=== PATIENT | female | born 1955 | race Caucasian/White ===

== ENCOUNTER 2016-11-14 17:05 | Inpatient (IN) ==
[2016-11-14] MEDS ORDERED: 0.9 % Sodium Chloride 500 ML IVC ONE (17:18)
[2016-11-14] MEDS ORDERED: Insulin Human Regular 10 UNIT in 0.9 % Sodium Chloride 10 ML IV ONE (17:18)
--- NOTE | 2016-11-14 17:21 | Emergency Department Note ---
Disposition Clinical Impression: Altered mental status Qualifiers: Altered mental status type: unspecified Qualified Code(s): R41.82 - Altered mental status, unspecified Disposition: Still a Patient Referrals: Tristen Quintana MD [Primary Care Provider] - Forms: ED Satisfaction Letter Altered Mental Status HPI - General Chief Complaint: ED Altered Mental Status Stated Complaint: AMS Time Seen by Provider: 11/14/16 17:12 Source: EMS Mode of arrival: EMS Limitations: no limitations Nursing Notes Reviewed: Yes Vital Signs Reviewed: Yes - History of Present Illness HPI Narrative: A 61-year-old comes in with a history of diabetes. States the last couple of days she's had some nausea vomiting and diarrhea not able to keep anything down. Patient stopped taking her insulin because her home health personnel are not able to give it to her and she has a broken wrist is not able to give it to herself. States she hasn't had insulin in a couple of days. Squad's Accu-Chek read greater than 600, point of care here in the ER was greater than 600. complaint: confusion Onset (ago): day(s) Timing confirmed by: caregiver Pain Severity: mild, moderate Context: diabetes Associated symptoms: Reports: nausea/vomiting, difficulty walking, diarrhea - Related Data Home Medications Medication Instructions Recorded Confirmed Amitriptyline [Elavil] 100 mg PO HS 05/11/15 10/29/16 Clopidogrel [Plavix] 75 mg PO DAILY 05/11/15 10/29/16 Ergocalciferol (VITAMIN D2) 50,000 units PO TH #0 05/11/15 10/29/16 [Vitamin D2 (50,000 UNIT)] Omeprazole [PriLOSEC] 20 mg PO BID 05/11/15 10/29/16 Rosuvastatin [Crestor] 40 mg PO HS 05/11/15 10/29/16 Sevelamer [Renvela] 800 mg PO TIDWM 05/11/15 10/29/16 Albuterol Neb [AccuNeb] 3 ml IH Q6H PRN 06/12/15 10/29/16 Aripiprazole [Abilify] 10 mg PO HS 06/12/15 10/29/16 Colestipol HCl [Colestid] 1 gm PO BID 06/12/15 10/29/16 Sennosides [Senna] 8.6 mg PO BID 06/12/15 10/29/16 Carvedilol 12.5 mg PO BID 10/28/15 10/29/16 HydrALAZINE 50 mg PO BID 12/30/15 10/29/16 Oxycodone HCl/Acetaminophen 1 tab PO Q6H PRN 04/14/16 10/29/16 [Percocet 10-325 mg Tablet] Amlodipine [Norvasc] 5 mg PO DAILY 06/09/16 10/29/16 Insulin Glargine,Hum.rec.anlog 60 unit SQ BID 06/09/16 10/29/16 [Lantus Solostar] Calcium Acetate [Phos-LO] 667 mg PO TIDWM 09/06/16 10/29/16 Furosemide [Lasix] 80 mg PO BID 09/06/16 10/29/16 Insulin LISPRO [Humalog] 20 unit SQ TIDWM 09/06/16 10/29/16 Metolazone [Zaroxolyn] 2.5 mg PO DAILY 09/06/16 10/29/16 Oxycodone HCl [Oxycontin] 60 mg PO Q12H 09/06/16 10/29/16 Oxygen 1 l .ROUTE HS PRN 09/06/16 10/29/16 Previous Rx's Medication Instructions Recorded Budesonide/Formoterol 160/4.5 2 puff IH BIDR inhaler 06/18/16 [Symbicort 160/4.5] Gabapentin [Neurontin] 200 mg PO TID 30 Days 06/18/16 Allergies Allergy/AdvReac Type Severity Reaction Status Date / Time No Known Allergies Allergy Verified 10/29/16 08:38 Constitutional: Denies: fever, chills, weakness, weight change Eyes: Denies: eye pain, eye discharge, vision change ENT ED: Denies: ear pain, throat pain, dental pain, hearing loss, epistaxis, congestion, dysphagia Cardiovascular: Denies: chest pain, palpitations, dyspnea on exertion, edema, syncope Respiratory: Denies: cough, dyspnea, wheezes, hemoptysis, stridor Gastrointestinal: Reports: nausea, vomiting, diarrhea. Denies: abdominal pain, constipation, hematemesis, melena, hematochezia Genitourinary: Denies: dysuria, frequency, hematuria, discharge Musculoskeletal: Denies: back pain, neck pain, arthralgia, myalgia Integumentary: Denies: rash, abrasion, lesions Neurological: Denies: headache, weakness, numbness, paresthesias, confusion, abnormal gait, vertigo Psychiatric: Denies: anxiety, depression, suicidal thoughts, homicidal thoughts , auditory hallucinations, visual hallucinations Endocrine: Denies: fatigue Hematological/Lymphatic: Denies: easy bleeding, easy bruising Allergic/Immunologic: Denies: facial swelling, urticaria Past Medical History - Past Medical History Medical history: Reports: arthritis, atrial fibrillation, CHF, COPD, coronary artery disease, CVA, DVT, diabetes, dialysis, fibromyalgia, GERD, hyperlipidemia , hypertension, kidney stones, migraine, myocardial infarction, osteoporosis, peripheral artery disease, renal disease, other Surgical history: Reports: angioplasty/stent, appendectomy, cholecystectomy, coronary bypass (CABG), hysterectomy, knee replacement, other Psychiatric history: Reports: anxiety 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 - Social History Smoking Status: Current every day smoker Smokeless Tobacco Status: No Alcohol use: Reports: none Drug use: Reports: none Physical Exam - General Limitations: no limitations General appearance: alert - Head Head exam: atraumatic, normocephalic, normal inspection - Eye Eye exam: Present: normal appearance, PERRL, EOMI - ENT ENT exam: normal exam, normal oropharynx, mucous membranes dry - Neck Neck exam: Present: normal inspection, full ROM, trachea midline - Chest Chest inspection: Present: normal inspection, symmetric chest wall rise - Respiratory Respiratory exam: Present: normal lung sounds bilaterally - Cardiovascular Cardiovascular exam: Present: regular rate, normal rhythm, normal heart sounds - Abdominal Exam Abdominal exam: Present: soft, Non-Tender. Absent: tenderness, distention, guarding, rebound, rigidity - Extremities Exam Extremities exam: Present: other (Cast on right forearm) - Expanded Lower Extremity Exam Neurovascular/Tendon exam: Absent: motor deficit, sensory deficit, tendon deficit Gait: not tested/not observed - Back Exam Back exam: Present: normal inspection - Neurological Exam Neurological exam: Present: alert, oriented X3, other ( easily) - Psychiatric Psychiatric exam: Present: normal affect, normal mood - Skin Skin exam: Present: warm, dry, intact, normal color Course Vital Signs Temperature 97.3 F L 11/14/16 17:09 Pulse Rate 85 11/14/16 17:09 Respiratory Rate 14 11/14/16 17:09 Blood Pressure 110/40 11/14/16 17:09 O2 Sat by Pulse Oximetry 98 11/14/16 17:09 Temperature 97.3 F L 11/14/16 17:09 Pulse Rate 85 11/14/16 17:09 Respiratory Rate 14 11/14/16 17:09 Blood Pressure 110/40 11/14/16 17:09 O2 Sat by Pulse Oximetry 98 11/14/16 17:09 Altered Mental Status - Lab Data Lab Results 11/14/16 Range/Units 17:16 POC Glucose > 600 H* (58-89) - EKG Data EKG attestation: Yes I reviewed and interpreted this EKG. EKG shows normal: sinus rhythm Rate: normal Rhythm: NSR Interpretation: nonspecific ST-T wave changes TPA Checklist - LKW: 3-4.5 hrs Add. Contraindications Patient/family understanding: The patient/family members have been counseled and understood the risk, benefit , and alternatives of treatment. S.B.A.R. - S.B.A.R. Recommendation: Recommendation based on pending studies, treatments, or consults S.B.A.R. Report Given to: Dr Abdirashid Keene Repor Time: 19:00
[2016-11-14 18:32] LABS: Basophils # 0.1 K/mcL (0.0-0.2); Basophils % 0.6 %; Eosinophils # 0.1 K/mcL (0.0-0.6); Eosinophils % 1.1 %; Hematocrit 32.7 % (35.3-44.9); Hemoglobin 10.2 g/dL (11.5-15.4); Immature Granulocytes % 1.2 % (0-4); Lymphocytes # 1.3 K/mcL (0.6-4.6); Lymphocytes % 16.1 %; Mean Corpuscular HGB Conc 31.2 g/dL (31.6-35.5); Mean Corpuscular Hemoglobin 26.6 pg (28.0-33.3); Mean Corpuscular Volume 85.2 fL (83.0-100.0); Mean Platelet Volume 10.4 fL (9.4-12.4); Monocytes # 0.9 K/mcL (0.0-1.3); Monocytes % 10.6 %; Neutrophils # 5.6 K/mcL (1.6-8.9); Platelet Count 222 K/mcL (140-400); Red Blood Count 3.84 M/mcL (3.82-4.97); Segmented Neutrophils % 70.4 %
[2016-11-14 18:38] LABS: Beta-Hydroxybutyric Acid 0.21 mmol/L (0.02-0.27); INR 1.1; Prothrombin Time 11.7 Seconds (9.4-12.1)
[2016-11-14 18:41] LABS: Activated Partial Thrombo Time 30.8 Seconds (26.0-36.0)
[2016-11-14 18:46] LABS: Alanine Aminotransferase 22 Units/L (0-55); Albumin 2.9 g/dL (3.5-5.0); Albumin/Globulin Ratio 0.7 (1.1-2.2); Alkaline Phosphatase 176 Units/L (38-126); Aspartate Amino Transferase 34 Units/L (5-34); BUN/Creatinine Ratio 9 (6-26); Bilirubin,Direct 0.2 mg/dL (0.0-0.5); Bilirubin,Indirect 0.3 mg/dL (0.0-1.2); Bilirubin,Total 0.5 mg/dL (0.2-1.2); Blood Urea Nitrogen 34 mg/dL (7-20); Calcium 9.3 mg/dL (8.6-10.8); Carbon Dioxide 22 mEq/L (19-29); Chloride 90 mEq/L (98-109); Globulin 4.2 g/dL (2.4-3.5); Osmolality,Calculated 306 (280-300); Potassium 3.5 mEq/L (3.5-4.5); Sodium 127 mEq/L (136-145); Total Protein 7.1 g/dL (6.0-8.3); eGFR For African Americans 14 (> 60); eGFR For Non-African Americans 12 (> 60)
[2016-11-14 18:51] LABS: Ethanol < 10 mg/dL (0-10); Glucose 724 mg/dL (70-99)
--- NOTE | 2016-11-14 20:21 | Emergency Department Note ---
Disposition Clinical Impression: Hyperglycemia Altered mental status Qualifiers: Altered mental status type: unspecified Qualified Code(s): R41.82 - Altered mental status, unspecified Disposition: Admitted As Inpatient Condition: Good Referrals: Tristen Quintana MD [Primary Care Provider] - Forms: ED Satisfaction Letter Time of Disposition: 21:00 Altered Mental Status HPI - General Chief Complaint: ED Altered Mental Status Stated Complaint: AMS Time Seen by Provider: 11/14/16 17:12 Source: EMS Mode of arrival: EMS Limitations: no limitations - History of Present Illness Pain Severity: mild, moderate Associated symptoms: Reports: nausea/vomiting, difficulty walking, diarrhea - Related Data Home Medications Medication Instructions Recorded Confirmed Amitriptyline [Elavil] 100 mg PO HS 05/11/15 10/29/16 Clopidogrel [Plavix] 75 mg PO DAILY 05/11/15 10/29/16 Ergocalciferol (VITAMIN D2) 50,000 units PO TH #0 05/11/15 10/29/16 [Vitamin D2 (50,000 UNIT)] Omeprazole [PriLOSEC] 20 mg PO BID 05/11/15 10/29/16 Rosuvastatin [Crestor] 40 mg PO HS 05/11/15 10/29/16 Sevelamer [Renvela] 800 mg PO TIDWM 05/11/15 10/29/16 Albuterol Neb [AccuNeb] 3 ml IH Q6H PRN 06/12/15 10/29/16 Aripiprazole [Abilify] 10 mg PO HS 06/12/15 10/29/16 Colestipol HCl [Colestid] 1 gm PO BID 06/12/15 10/29/16 Sennosides [Senna] 8.6 mg PO BID 06/12/15 10/29/16 Carvedilol 12.5 mg PO BID 10/28/15 10/29/16 HydrALAZINE 50 mg PO BID 12/30/15 10/29/16 Oxycodone HCl/Acetaminophen 1 tab PO Q6H PRN 04/14/16 10/29/16 [Percocet 10-325 mg Tablet] Amlodipine [Norvasc] 5 mg PO DAILY 06/09/16 10/29/16 Insulin Glargine,Hum.rec.anlog 60 unit SQ BID 06/09/16 10/29/16 [Lantus Solostar] Calcium Acetate [Phos-LO] 667 mg PO TIDWM 09/06/16 10/29/16 Furosemide [Lasix] 80 mg PO BID 09/06/16 10/29/16 Insulin LISPRO [Humalog] 20 unit SQ TIDWM 09/06/16 10/29/16 Metolazone [Zaroxolyn] 2.5 mg PO DAILY 09/06/16 10/29/16 Oxycodone HCl [Oxycontin] 60 mg PO Q12H 09/06/16 10/29/16 Oxygen 1 l .ROUTE HS PRN 09/06/16 10/29/16 Previous Rx's Medication Instructions Recorded Budesonide/Formoterol 160/4.5 2 puff IH BIDR inhaler 06/18/16 [Symbicort 160/4.5] Gabapentin [Neurontin] 200 mg PO TID 30 Days 06/18/16 Allergies Allergy/AdvReac Type Severity Reaction Status Date / Time No Known Allergies Allergy Verified 10/29/16 08:38 Constitutional: Denies: fever, chills, weakness, weight change Eyes: Denies: eye pain, eye discharge, vision change ENT ED: Denies: ear pain, throat pain, dental pain, hearing loss, epistaxis, congestion, dysphagia Cardiovascular: Denies: chest pain, palpitations, dyspnea on exertion, edema, syncope Respiratory: Denies: cough, dyspnea, wheezes, hemoptysis, stridor Gastrointestinal: Reports: nausea, vomiting, diarrhea. Denies: abdominal pain, constipation, hematemesis, melena, hematochezia Genitourinary: Denies: dysuria, frequency, hematuria, discharge Musculoskeletal: Denies: back pain, neck pain, arthralgia, myalgia Integumentary: Denies: rash, abrasion, lesions Neurological: Denies: headache, weakness, numbness, paresthesias, confusion, abnormal gait, vertigo Psychiatric: Denies: anxiety, depression, suicidal thoughts, homicidal thoughts , auditory hallucinations, visual hallucinations Endocrine: Denies: fatigue Hematological/Lymphatic: Denies: easy bleeding, easy bruising Allergic/Immunologic: Denies: facial swelling, urticaria Past Medical History - Past Medical History Medical history: Reports: arthritis, atrial fibrillation, CHF, COPD, coronary artery disease, CVA, DVT, diabetes, dialysis, fibromyalgia, GERD, hyperlipidemia , hypertension, kidney stones, migraine, myocardial infarction, osteoporosis, peripheral artery disease, renal disease, other Surgical history: Reports: angioplasty/stent, appendectomy, cholecystectomy, coronary bypass (CABG), hysterectomy, knee replacement, other Psychiatric history: Reports: anxiety 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 She has no IV access at this time. I attempted to place a right external jugular line which was initially positional, but then would not draw or flush. Left internal jugular central venous catheter was placed for venous access. Patient tolerated procedure well. Consent was not obtained due to the emergent medical condition and patient's altered mental status. Chest x-ray and VBG, and repeat glucose are ordered. We will admit after these returned. Time: 20:20 Reevaluation #2: Blood sugar improved from initial evaluation to 597. Additional 20 units of subcutaneous regular insulin ordered along with 1 L normal saline for hyperglycemia and mild hyponatremia. Chest x-ray reviewed and shows central venous catheter in good position without pneumothorax. Patient accepted by Dr. Combs. Time: 21:00 Vital Signs Temperature 97.3 F L 11/14/16 17:09 Pulse Rate 85 11/14/16 17:09 Respiratory Rate 14 11/14/16 17:09 Blood Pressure 110/40 11/14/16 17:09 O2 Sat by Pulse Oximetry 98 11/14/16 17:09 Temperature 97.3 F L 11/14/16 17:09 Pulse Rate 83 11/14/16 19:43 Respiratory Rate 14 11/14/16 19:43 Blood Pressure 128/74 11/14/16 19:43 O2 Sat by Pulse Oximetry 99 11/14/16 19:43 Oxygen Delivery Oxygen Delivery Room Air Procedures - Central Line Placement Left IJ Central Line Inserted*: Yes Central Line Catheter Replacement*: No Central Line Insertion: emergent Consent Obtained: verbal consent Procedural Pause: verify patient name and date of , timeout performed per policy, narinder and assess the site, assemble equipment and verify supplies, perform hand hygiene Patient Placed on Monitor/Pulse Ox: Yes During the Procedure: clinician is wearing sterile gloves, cap, mask,& gown during insertion, sterile field and sterile technique are maintained, patient's face is covered with drape or mask and wearing a cap, everyone in room is wearing a mask Central Line Prep: Chlorhexidine scrub Prep the Procedure Site: apply chloraprep to the skin using a back and forth scrubbing motion, apply chloraprep for 30 seconds (upper body), 1-2 min ( femoral sites), allow prep to dry, drape the patient with a full body drape Local Anesthetic: lidocaine 1% Amount of anesthesia used (mL): 3 Ultrasound Used for Placement: Yes Central Line Lumen Inserted: triple Post Procedure: sutured in place, good blood return, all ports aspirated, flushed, capped, sterile dressing applied, guide wire removed and visualized, dressing is dated Post Procedure X-Ray: tip of catheter in good position, no pneumothorax seen Patient Tolerated Procedure: well, no complications Date: 11/14/16 Time: 20:22 Altered Mental Status - Lab Data Result diagrams: 11/14/16 18:15 11/14/16 18:15 Lab Results 11/14/16 11/14/16 11/14/16 Range/Units 17:16 18:15 18:15 WBC 8.0 (4.3-11.1) K/mcL RBC 3.84 (3.82-4.97) M/mcL Hgb 10.2 L (11.5-15.4) g/dL Hct 32.7 L (35.3-44.9) % MCV 85.2 (83.0-100.0) fL MCH 26.6 L (28.0-33.3) pg MCHC 31.2 L (31.6-35.5) g/dL RDW 18.0 H (11.5-14.5) % Plt Count 222 (140-400) K/mcL MPV 10.4 (9.4-12.4) fL Immature Gran % 1.2 (0-4) % Seg Neutrophils % 70.4 % Lymphocytes % 16.1 % Monocytes % 10.6 % Eosinophils % 1.1 % Basophils % 0.6 % Neutrophils # 5.6 (1.6-8.9) K/mcL Lymphocytes # 1.3 (0.6-4.6) K/mcL Monocytes # 0.9 (0.0-1.3) K/mcL Eosinophils # 0.1 (0.0-0.6) K/mcL Basophils # 0.1 (0.0-0.2) K/mcL PT 11.7 (9.4-12.1) Seconds INR 1.1 APTT 30.8 (26.0-36.0) Seconds VBG pH (7.32-7.42) pH Units VBG pCO2 (41-51) mmHg VBG pO2 (25-40) mmHg VBG HCO3 (21-27) mEq/L Sodium (136-145) mEq/L Potassium (3.5-4.5) mEq/L Chloride (98-109) mEq/L Carbon Dioxide (19-29) mEq/L BUN (7-20) mg/dL Creatinine (0.57-1.11) mg/dL Est GFR ( Amer) (> 60) Est GFR (Non-Af Amer) (> 60) BUN/Creatinine Ratio (6-26) Glucose (70-99) mg/dL POC Glucose > 600 H* (58-89) Calculated Osmolality (280-300) Calcium (8.6-10.8) mg/dL Total Bilirubin (0.2-1.2) mg/dL Direct Bilirubin (0.0-0.5) mg/dL Indirect Bilirubin (0.0-1.2) mg/dL AST (5-34) Units/L ALT (0-55) Units/L Alkaline Phosphatase (38-126) Units/L Troponin I (0-0.03) ng/mL Serum Total Protein (6.0-8.3) g/dL Albumin (3.5-5.0) g/dL Globulin (2.4-3.5) g/dL Albumin/Globulin Ratio (1.1-2.2) Beta-Hydroxybutyric Acd (0.02-0.27) mmol/L Ethyl Alcohol (0-10) mg/dL 11/14/16 11/14/16 11/14/16 Range/Units 18:15 18:15 20:20 WBC (4.3-11.1) K/mcL RBC (3.82-4.97) M/mcL Hgb (11.5-15.4) g/dL Hct (35.3-44.9) % MCV (83.0-100.0) fL MCH (28.0-33.3) pg MCHC (31.6-35.5) g/dL RDW (11.5-14.5) % Plt Count (140-400) K/mcL MPV (9.4-12.4) fL Immature Gran % (0-4) % Seg Neutrophils % % Lymphocytes % % Monocytes % % Eosinophils % % Basophils % % Neutrophils # (1.6-8.9) K/mcL Lymphocytes # (0.6-4.6) K/mcL Monocytes # (0.0-1.3) K/mcL Eosinophils # (0.0-0.6) K/mcL Basophils # (0.0-0.2) K/mcL PT (9.4-12.1) Seconds INR APTT (26.0-36.0) Seconds VBG pH 7.37 (7.32-7.42) pH Units VBG pCO2 52 H (41-51) mmHg VBG pO2 52 H (25-40) mmHg VBG HCO3 30.1 H (21-27) mEq/L Sodium 127 L (136-145) mEq/L Potassium 3.5 (3.5-4.5) mEq/L Chloride 90 L (98-109) mEq/L Carbon Dioxide 22 (19-29) mEq/L BUN 34 H (7-20) mg/dL Creatinine 3.93 H (0.57-1.11) mg/dL Est GFR ( Amer) 14 L (> 60) Est GFR (Non-Af Amer) 12 L (> 60) BUN/Creatinine Ratio 9 (6-26) Glucose 724 H* (70-99) mg/dL POC Glucose (58-89) Calculated Osmolality 306 H (280-300) Calcium 9.3 (8.6-10.8) mg/dL Total Bilirubin 0.5 (0.2-1.2) mg/dL Direct Bilirubin 0.2 (0.0-0.5) mg/dL Indirect Bilirubin 0.3 (0.0-1.2) mg/dL AST 34 (5-34) Units/L ALT 22 (0-55) Units/L Alkaline Phosphatase 176 H (38-126) Units/L Troponin I 0.01 (0-0.03) ng/mL Serum Total Protein 7.1 (6.0-8.3) g/dL Albumin 2.9 L (3.5-5.0) g/dL Globulin 4.2 H (2.4-3.5) g/dL Albumin/Globulin Ratio 0.7 L (1.1-2.2) Beta-Hydroxybutyric Acd 0.21 (0.02-0.27) mmol/L Ethyl Alcohol < 10 (0-10) mg/dL 11/14/16 Range/Units 20:36 WBC (4.3-11.1) K/mcL RBC (3.82-4.97) M/mcL Hgb (11.5-15.4) g/dL Hct (35.3-44.9) % MCV (83.0-100.0) fL MCH (28.0-33.3) pg MCHC (31.6-35.5) g/dL RDW (11.5-14.5) % Plt Count (140-400) K/mcL MPV (9.4-12.4) fL Immature Gran % (0-4) % Seg Neutrophils % % Lymphocytes % % Monocytes % % Eosinophils % % Basophils % % Neutrophils # (1.6-8.9) K/mcL Lymphocytes # (0.6-4.6) K/mcL Monocytes # (0.0-1.3) K/mcL Eosinophils # (0.0-0.6) K/mcL Basophils # (0.0-0.2) K/mcL PT (9.4-12.1) Seconds INR APTT (26.0-36.0) Seconds VBG pH (7.32-7.42) pH Units VBG pCO2 (41-51) mmHg VBG pO2 (25-40) mmHg VBG HCO3 (21-27) mEq/L Sodium (136-145) mEq/L Potassium (3.5-4.5) mEq/L Chloride (98-109) mEq/L Carbon Dioxide (19-29) mEq/L BUN (7-20) mg/dL Creatinine (0.57-1.11) mg/dL Est GFR ( Amer) (> 60) Est GFR (Non-Af Amer) (> 60) BUN/Creatinine Ratio (6-26) Glucose (70-99) mg/dL POC Glucose 597 H* (58-89) Calculated Osmolality (280-300) Calcium (8.6-10.8) mg/dL Total Bilirubin (0.2-1.2) mg/dL Direct Bilirubin (0.0-0.5) mg/dL Indirect Bilirubin (0.0-1.2) mg/dL AST (5-34) Units/L ALT (0-55) Units/L Alkaline Phosphatase (38-126) Units/L Troponin I (0-0.03) ng/mL Serum Total Protein (6.0-8.3) g/dL Albumin (3.5-5.0) g/dL Globulin (2.4-3.5) g/dL Albumin/Globulin Ratio (1.1-2.2) Beta-Hydroxybutyric Acd (0.02-0.27) mmol/L Ethyl Alcohol (0-10) mg/dL - Radiology Data Radiology results reviewed: Yes I reviewed the patient's radiology results. - EKG Data EKG attestation: Yes I reviewed and interpreted this EKG. TPA Checklist - LKW: 3-4.5 hrs Add. Contraindications Patient/family understanding: The patient/family members have been counseled and understood the risk, benefit , and alternatives of treatment. Critical Care Time Critical Care Time: Yes Total Critical Care Time: 40 Attestation: Critical care performed: Time is exclusive of separately billable procedures. Time includes: direct patient care, patient reassessment, coordination of patient care, interpretation of data (laboratory data, radiology data, and respiratory data), review of patient's medical records, medical consultation and documentation of patient care. Procedures included in critical care time: Procedures excluded from critical care time: Left IJ central line placement Attestation Statement - Attestation Attestation: I, Rommel Mendenhall MD, personally performed a history and physical exam of the patient and discussed their management with the resident. I reviewed the resident's note and agree with the documented findings, medical decision making , and plan of care. This patient was signed out at shift change from Dr. Velez. Please refer to his note for complete details of the history and physical examination. Patient is a 61-year-old female with a history of end-stage renal disease on hemodialysis who presented to the emergency department for altered mental status. Patient was found to be hyperglycemic with a blood sugar of 724. She did receive 10 units of regular insulin IV push and however then they lost IV access and patient needs central line placement for IV fluids and further evaluation and management. A left IJ central line was placed by Dr. Hoyt without difficulty. Examination patient is a well-developed obese female who does seem drowsy and is confused and disoriented but responsive to verbal stimuli and answers questions. Breath sounds are clear and equal bilaterally. Heart regular rate and rhythm. Abdomen soft with normal bowel sounds. Labs reviewed. Chest x-ray negative. The hospitalist, Dr. Combs, was consulted and accepted admission of the patient.
[2016-11-14 20:23] LABS: VBG HCO3 30.1 mEq/L (21-27); VBG PH 7.37 pH Units (7.32-7.42)
[2016-11-14] MEDS ORDERED: 0.9 % Sodium Chloride 1,000 ML IVC ONE (20:32)
[2016-11-14] MEDS ORDERED: 0.9 % Sodium Chloride 1,000 ML ONE (20:34)
[2016-11-14] MEDS ORDERED: Insulin LISPRO 300 UNITS/3 ML VIAL SQ STA (20:45)
[2016-11-14] MEDS ORDERED: *HR* Dextrose 50 % in Water (Syg) 50 ML SYRINGE IVP PRN (21:22)
[2016-11-14] MEDS ORDERED: Insulin LISPRO 300 UNITS/3 ML VIAL SQ ONE (21:22)
[2016-11-14] MEDS ORDERED: Insulin LISPRO 300 UNITS/3 ML VIAL SQ PRN ×2 (21:22)
[2016-11-14] MEDS ORDERED: D5% in 0.45% NACL 1,000 ML IVC PRN (21:22)
--- NOTE | 2016-11-14 22:37 | Internal Med History&Physical ---
<Charisse Tan - Last Filed: 11/15/16 05:19> Date of Encounter: 11/15/16 Time of Encounter: 21:00 Assessment and Plan (1) Hyperosmolar non-ketotic state in patient with type 2 diabetes mellitus Current visit: No Status: Acute Blood glucose upon arrival 724, Osmolality 306, B-hydorxybutyric acid 0.21, VBG ph 7.37 Insulin drip and IV hydration Hyperglycemia may account for acute metabolic encehpalopathy Will will attempt to identify treatable causes underlying HHS Blood and urine culture, pending CT chest and CT abdomen/pelvis, pending Patient is high risk for decompensation due to severe comorbidities (2) Acute metabolic encephalopathy Current visit: Yes Status: Acute plan as above (3) CKD (chronic kidney disease) Current visit: No Status: Acute Cr 3.93 upon arrival to ED Will plan for dialysis tomorrow Dialysis team consulted Qualifiers: Chronic kidney disease stage: stage 4 (severe) Qualified Code(s): N18.4 - Chronic kidney disease, stage 4 (severe) (4) Cellulitis of left lower extremity Current visit: Yes Status: Acute Cellulitis secondary to venous insufficiency Will begin IV vanc, pharmacy to dose (5) Cellulitis of right lower extremity Current visit: Yes Status: Acute Cellulitis secondary to venous insufficiency Will begin IV vanc, pharmacy to dose (6) Venous stasis dermatitis of both lower extremities Current visit: Yes Status: Acute (7) Decubitus ulcer of sacral region, stage 1 Current visit: Yes Status: Acute Wound care BID Consult wound care (8) Nausea vomiting and diarrhea Current visit: No Status: Resolved Apparently resolved at this time Will continue IVF and prn anti-emetics CT abdomen/pelvis to investigate for source of infection (9) Hyponatremia Current visit: No Status: Acute Likely due to vomiting and diarreha Repeat labs in am (10) Hypochloremia Current visit: Yes Status: Acute Likely due to vomiting and diarrhea Repeat labs in am (11) DVT prophylaxis Current visit: No Status: Acute Internal Medicine - H&P: HPI Chief complaint: nausea,vomiting, diarrhea, altered mental status Admitted From: Emergency Dept Plans for Post Hospital Care: Home History of present illness: Ms. Riley is a 61 year old female who presents to the hospital with a three- day history of nausea, vomiting, and diarrhea. She states that for the past three days, she could not keep her train of thought. She felt lethargic, and kept saying "goofy things" according to her mother, friend, and neighbor. She admits headache, dizziness, dry mouth, and bloody stool. Also admits burning on urination. 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 She broke her right wrist, hit her head, and has bruising on her neck from the fall. CT head without contrast is without evidence of Patient has CKD and is dialyzed M,W,F. She uses 3L home O2 while sleeping, but only uses during the day as needed. She lives alone and has an aid who visits 2 hours on , 4 hours Wednesday, and 6 hours and . Past Med Surg Social Fam HX - Past Medical History Medical history: arthritis, atrial fibrillation, CHF, COPD, coronary artery disease, CVA, DVT, diabetes, dialysis, fibromyalgia, GERD, hyperlipidemia, hypertension, kidney stones, migraine, myocardial infarction, osteoporosis, peripheral artery disease, renal disease, other Psychiatric history: anxiety - Past Surgical History Surgical History: angioplasty/stent, appendectomy, cholecystectomy, coronary bypass (CABG), hysterectomy, knee replacement, other, IVC filter - Social History Smoking Status: Current every day smoker Smokeless Tobacco Status: No Alcohol use: none Drug use: none - Family History Father Living Status: Hx Family Cardiac Disorders: Yes Hx Family Endocrine Disorder: Yes Mother Living Status: Still Living Hx Family Respiratory Disorders: Yes (end stage copd) Internal Medicine - H&P: Meds Amitriptyline [Elavil] 100 mg PO HS 05/11/15 [History] Clopidogrel [Plavix] 75 mg PO DAILY 05/11/15 [History] Ergocalciferol (VITAMIN D2) [Vitamin D2 (50,000 UNIT)] 50,000 units PO TH #0 [History] Omeprazole [PriLOSEC] 20 mg PO BID 05/11/15 [History] Rosuvastatin [Crestor] 40 mg PO HS 05/11/15 [History] Sevelamer [Renvela] 800 mg PO TIDWM 05/11/15 [History] Albuterol Neb [AccuNeb] 3 ml IH Q6H PRN 06/12/15 [History] Aripiprazole [Abilify] 10 mg PO HS 06/12/15 [History] Colestipol HCl [Colestid] 1 gm PO BID 06/12/15 [History] Sennosides [Senna] 8.6 mg PO BID 06/12/15 [History] Carvedilol 12.5 mg PO BID 10/28/15 [History] HydrALAZINE 50 mg PO BID 12/30/15 [History] Oxycodone HCl/Acetaminophen [Percocet 10-325 mg Tablet] 1 tab PO Q6H PRN [History] Amlodipine [Norvasc] 5 mg PO DAILY 06/09/16 [History] Insulin Glargine,Hum.rec.anlog [Lantus Solostar] 60 unit SQ BID 06/09/16 [ History] Budesonide/Formoterol 160/4.5 [Symbicort 160/4.5] 2 puff IH BIDR inhaler [Rx] Gabapentin [Neurontin] 200 mg PO TID 30 Days 06/18/16 [Rx] Calcium Acetate [Phos-LO] 667 mg PO TIDWM 09/06/16 [History] Furosemide [Lasix] 80 mg PO BID 09/06/16 [History] Insulin LISPRO [Humalog] 20 unit SQ TIDWM 09/06/16 [History] Metolazone [Zaroxolyn] 2.5 mg PO MOWEFR 09/06/16 [History] Oxycodone HCl [Oxycontin] 60 mg PO Q12H 09/06/16 [History] Oxygen 1 l .ROUTE HS PRN 09/06/16 [History] Pnv95/Ferrous Fumarate/FA [ Caplet] 1 tab PO DAILY 11/15/16 [History] Tiotropium [place] [Spiriva] 18 mcg IH DAILY 11/15/16 [History] Allergies No Known Allergies Allergy (Verified 10/29/16 08:38) All Systems PM: A 10-system review of systems was performed and is negative for pertinent findings except as documented above in the HPI. - Constitutional Constitutional: lethargy, no chills, no falls - Cardiovascular Cardiovascular ROS IM: no chest pain - Respiratory Respiratory: no cough - Gastrointestinal Gastrointestinal: diarrhea (bloody ), nausea, vomiting (non-bloody), no abdominal pain Additional comments: Burning sensation to perirectal area - Genitourinary Genitourinary: dysuria - Musculoskeletal Musculoskeletal ROS IM: other (right broken wrist) - Neurological Neurological ROS: confusion, dizziness, headache(s) - Psychiatric Psychiatric: behavioral changes, difficulty concentrating - Constitutional Vitals: Temp Pulse Resp BP Pulse Ox 97.3 F L 86 18 125/105 99 11/14/16 17:09 11/14/16 21:10 11/14/16 21:44 11/14/16 21:44 11/14/16 21:10 General appearance: Present: A&O X 3, morbidly obese, pleasant, answers questions appropriately - Head Head exam: Present: atraumatic, normal inspection, normocephalic Additional comments: IJ catheter in place at left neck - Eye Eye exam: Present: EOMI - ENT ENT exam: Present: mucous membranes dry - Respiratory Respiratory exam: Present: decreased breath sounds, prolonged expiratory phase, wheezes (bilateral lung bases) - Cardiovascular Cardiovascular exam: Present: RRR, +S2, systolic murmur (blowing systolic murmur ) - GI/Abdominal GI/Abdominal exam: Present: hypoactive bowel sounds, soft, tenderness (Pt states "sharp-stabbin pain" to palpation of RLQ) - Extremities Exam Extremities exam: Present: pedal edema (1+ pitting edema to bilateral lower legs ), tenderness (to palpation of bilateral lower legs) Additional comments: Bilateral legs erythematous and warm to touch. Skin with leathery texture and waxy brown flakes. - Neurological Exam Neurological exam: Present: alert - Psychiatric Psychiatric exam: Present: normal affect, normal mood - Skin Skin exam: Present: abrasion (Pale pink, macerated skin to left coccyx, Grade 1 decubitus ulcer) Internal Med - H&P Results - Labs CBC & Chem 7: 11/15/16 01:16 11/15/16 01:16 - Impressions Head CT 11/14/16 17:23 IMPRESSION: No acute intracranial abnormality. D/ / Keshav Hartman MD / Keshav Hartman MD Interpreting Provider: Keshav Hartman MD Chest X-Ray 11/14/16 20:18 IMPRESSION: Grossly clear lungs. D/ / Petr Alexis MD / Petr Alexis MD Interpreting Provider: Petr Alexis MD - Attending Attestation I examined this patient and my medical decision-making was reviewed with the REPRODUCTION MACHINE LOADER/PA/Advanced Practice Nurse/Resident Physician. I agree with the documented findings, disposition and treatment plan as described except to the extent set forth below. <Ayden Mayen - Last Filed: 11/18/16 01:17> Date of Encounter: 11/14/16 Internal Medicine - H&P: HPI History of present illness: Ms. Riley is a 61 year old female needed to [facility] with chief complaint of confusion associated with intractable nausea vomiting and diarrhea. The patient was visited, interviewed and examined. I examined this patient and my medical decision-making was reviewed with the Resident Physician. I agree with the documented findings, disposition and treatment plan as described except to the extent set forth below. Cumulative laboratory and radiographic database was reviewed and considered and discussed. Pertinent ancillary medical records including ECW and PCI documentation when available was reviewed and considered. Given the patient's presenting concerns, past medical history, clinical findings and symptoms, she is admitted at this time to undergo further evaluation and disposition. Orders were written as per the computerized physician order selector system........................... All Systems PM: A 10-system review of systems was performed and is negative for pertinent findings except as documented above in the HPI. - Constitutional Vitals: Temp Pulse Resp BP Pulse Ox 98.6 F 87 13 159/75 100 11/17/16 23:03 11/17/16 23:03 11/17/16 23:03 11/17/16 23:03 11/17/16 23:03 Internal Med - H&P Results - Labs CBC & Chem 7: 11/17/16 04:51 11/17/16 04:51 Labs: Short CBC 11/17/16 Range/Units 04:51 WBC 9.9 (4.3-11.1) K/mcL Hgb 10.5 L (11.5-15.4) g/dL Hct 34.0 L (35.3-44.9) % Plt Count 207 (140-400) K/mcL Neutrophils # 6.5 (1.6-8.9) K/mcL BMP 11/17/16 04:51 Sodium 133 L Potassium 4.4 Chloride 96 L Carbon Dioxide 25 BUN 21 H D Creatinine 2.91 H Glucose 241 H Calcium 9.4 - ABG Interpretation ABG results: 11/17/16 10:12 ABG pH 7.32 ABG pCO2 56 H ABG pO2 82 L ABG HCO3 28.9 H ABG Total CO2 30.6 H ABG O2 Saturation 95 ABG Base Excess 1.7 - Impressions Abnormal lab results Hgb 10.5 g/dL (11.5-15.4) L 11/17/16 04:51 Hct 34.0 % (35.3-44.9) L 11/17/16 04:51 MCH 26.6 pg (28.0-33.3) L 11/17/16 04:51 MCHC 30.9 g/dL (31.6-35.5) L 11/17/16 04:51 RDW 18.5 % (11.5-14.5) H 11/17/16 04:51 ESR 71 mm/hr (0-15) H 11/15/16 10:45 ABG pCO2 56 mmHg (35-45) H 11/17/16 10:12 ABG pO2 82 mmHg (85-104) L 11/17/16 10:12 ABG HCO3 28.9 mEQ/L (21-27) H 11/17/16 10:12 ABG Total CO2 30.6 mEq/L (20-26) H 11/17/16 10:12 VBG pH 7.50 pH Units (7.32-7.42) H D 11/15/16 06:43 VBG pCO2 31 mmHg (41-51) L 11/15/16 06:43 VBG pO2 144 mmHg (25-40) H 11/15/16 06:43 Sodium 133 mEq/L (136-145) L 11/17/16 04:51 Chloride 96 mEq/L (98-109) L 11/17/16 04:51 BUN 21 mg/dL (7-20) H D 11/17/16 04:51 Creatinine 2.91 mg/dL (0.57-1.11) H 11/17/16 04:51 Est GFR ( Amer) 20 (> 60) L 11/17/16 04:51 Est GFR (Non-Af Amer) 16 (> 60) L 11/17/16 04:51 Glucose 241 mg/dL (70-99) H 11/17/16 04:51 POC Glucose 151 (58-89) H 11/17/16 20:24 Hemoglobin A1c 11.1 % (-5.6) H 11/15/16 01:16 Lactic Acid 2.3 mmol/L (0.5-2.2) H 11/15/16 01:16 Iron 41 mcg/dL (50-170) L 11/16/16 04:10 Alkaline Phosphatase 153 Units/L (38-126) H 11/15/16 06:43 C-Reactive Protein 47 mg/L (Less than 5) H 11/15/16 06:43 Serum Total Protein 5.9 g/dL (6.0-8.3) L 11/15/16 06:43 Albumin 2.5 g/dL (3.5-5.0) L 11/15/16 06:43 Albumin/Globulin Ratio 0.7 (1.1-2.2) L 11/15/16 06:43 Triglycerides 179 mg/dL (< 150) H 11/15/16 06:43 VLDL Cholesterol, Calc 36 mg/dL (< 31) H 11/15/16 06:43 HDL Cholesterol 19 mg/dL (40-59) L 11/15/16 06:43 Amylase 11 Units/L (25-125) L 11/15/16 06:43 Urine Protein 100 mg/dL (Neg-Trace) H 11/15/16 02:12 Urine Glucose (UA) >=1000 mg/dL (Normal) H 11/15/16 02:12 Urine Bilirubin Small (Negative) H 11/15/16 02:12 Ur Leukocyte Esterase Moderate (Negative) H 11/15/16 02:12 Urine Microscopic WBC 30-50 per hpf (0-3) H 11/15/16 02:12 Ur Squamous Epith Cells Moderate per lpf (None-Few) H 11/15/16 02:12 Urine Yeast Many per hpf (None Seen) H 11/15/16 02:12 Urine Opiates Screen Positive ng/mL (Zkvmpg=237) H 11/15/16 02:12 Laboratory Results WBC 9.9 K/mcL (4.3-11.1) 11/17/16 04:51 RBC 3.95 M/mcL (3.82-4.97) 11/17/16 04:51 Hgb 10.5 g/dL (11.5-15.4) L 11/17/16 04:51 Hct 34.0 % (35.3-44.9) L 11/17/16 04:51 MCV 86.1 fL (83.0-100.0) 11/17/16 04:51 MCH 26.6 pg (28.0-33.3) L 11/17/16 04:51 MCHC 30.9 g/dL (31.6-35.5) L 11/17/16 04:51 RDW 18.5 % (11.5-14.5) H 11/17/16 04:51 Plt Count 207 K/mcL (140-400) 11/17/16 04:51 MPV 10.0 fL (9.4-12.4) 11/17/16 04:51 Immature Gran % 1.8 % (0-4) 11/17/16 04:51 Seg Neutrophils % 65.7 % 11/17/16 04:51 Lymphocytes % 19.1 % 11/17/16 04:51 Monocytes % 8.5 % 11/17/16 04:51 Eosinophils % 4.0 % 11/17/16 04:51 Basophils % 0.9 % 11/17/16 04:51 Neutrophils # 6.5 K/mcL (1.6-8.9) 11/17/16 04:51 Lymphocytes # 1.9 K/mcL (0.6-4.6) 11/17/16 04:51 Monocytes # 0.8 K/mcL (0.0-1.3) 11/17/16 04:51 Eosinophils # 0.4 K/mcL (0.0-0.6) 11/17/16 04:51 Basophils # 0.1 K/mcL (0.0-0.2) 11/17/16 04:51 Immature Plt Fraction 2.6 % (1.1-6.1) 11/15/16 01:16 ESR 71 mm/hr (0-15) H 11/15/16 10:45 PT 11.7 Seconds (9.4-12.1) 11/14/16 18:15 INR 1.1 11/14/16 18:15 APTT 30.8 Seconds (26.0-36.0) 11/14/16 18:15 ABG pH 7.32 pH Units (7.32-7.45) 11/17/16 10:12 ABG pCO2 56 mmHg (35-45) H 11/17/16 10:12 ABG pO2 82 mmHg (85-104) L 11/17/16 10:12 ABG HCO3 28.9 mEQ/L (21-27) H 11/17/16 10:12 ABG Total CO2 30.6 mEq/L (20-26) H 11/17/16 10:12 ABG O2 Saturation 95 % (95-98) 11/17/16 10:12 ABG Base Excess 1.7 mEq/L (-2.0 to 3.0) 11/17/16 10:12 VBG pH 7.50 pH Units (7.32-7.42) H D 11/15/16 06:43 VBG pCO2 31 mmHg (41-51) L 11/15/16 06:43 VBG pO2 144 mmHg (25-40) H 11/15/16 06:43 VBG HCO3 24.2 mEq/L (21-27) 11/15/16 06:43 Blood Gas Modality IA 11/17/16 10:12 Inspired O2 32 % 11/17/16 10:12 Sodium 133 mEq/L (136-145) L 11/17/16 04:51 Potassium 4.4 mEq/L (3.5-4.5) 11/17/16 04:51 Chloride 96 mEq/L (98-109) L 11/17/16 04:51 Carbon Dioxide 25 mEq/L (19-29) 11/17/16 04:51 BUN 21 mg/dL (7-20) H D 11/17/16 04:51 Creatinine 2.91 mg/dL (0.57-1.11) H 11/17/16 04:51 Est GFR ( Amer) 20 (> 60) L 11/17/16 04:51 Est GFR (Non-Af Amer) 16 (> 60) L 11/17/16 04:51 BUN/Creatinine Ratio 7 (6-26) 11/17/16 04:51 Glucose 241 mg/dL (70-99) H 11/17/16 04:51 POC Glucose 151 (58-89) H 11/17/16 20:24 Est Mean Plasma Glucose 272 mg/dl 11/15/16 01:16 Hemoglobin A1c 11.1 % (-5.6) H 11/15/16 01:16 Serum Osmolality 298 mOsm/kg (280-300) 11/15/16 01:16 Calculated Osmolality 287 (280-300) 11/17/16 04:51 Lactic Acid 2.3 mmol/L (0.5-2.2) H 11/15/16 01:16 Calcium 9.4 mg/dL (8.6-10.8) 11/17/16 04:51 Phosphorus 4.0 mg/dL (2.3-4.7) 11/16/16 04:10 Magnesium 1.8 mg/dL (1.6-2.6) 11/15/16 06:43 Iron 41 mcg/dL (50-170) L 11/16/16 04:10 Total Bilirubin 0.5 mg/dL (0.2-1.2) 11/15/16 06:43 Direct Bilirubin 0.2 mg/dL (0.0-0.5) 11/14/16 18:15 Indirect Bilirubin 0.3 mg/dL (0.0-1.2) 11/14/16 18:15 AST 30 Units/L (5-34) 11/15/16 06:43 ALT 19 Units/L (0-55) 11/15/16 06:43 Alkaline Phosphatase 153 Units/L (38-126) H 11/15/16 06:43 Ammonia 23 mcmol/L (18-72) 11/15/16 06:43 Creatine Kinase 35 Units/L (29-168) 11/15/16 10:45 Troponin I 0.01 ng/mL (0-0.03) 11/14/16 18:15 C-Reactive Protein 47 mg/L (Less than 5) H 11/15/16 06:43 Serum Total Protein 5.9 g/dL (6.0-8.3) L 11/15/16 06:43 Albumin 2.5 g/dL (3.5-5.0) L 11/15/16 06:43 Globulin 3.4 g/dL (2.4-3.5) 11/15/16 06:43 Albumin/Globulin Ratio 0.7 (1.1-2.2) L 11/15/16 06:43 Triglycerides 179 mg/dL (< 150) H 11/15/16 06:43 Cholesterol 86 mg/dL (< 200) 11/15/16 06:43 LDL Cholesterol, Calc 31 mg/dL (0-99) 11/15/16 06:43 VLDL Cholesterol, Calc 36 mg/dL (< 31) H 11/15/16 06:43 HDL Cholesterol 19 mg/dL (40-59) L 11/15/16 06:43 Cholesterol/HDL Ratio 4.5 (0-4.9) 11/15/16 06:43 Amylase 11 Units/L (25-125) L 11/15/16 06:43 Lipase 14 Units/L (8-78) 11/15/16 06:43 Beta-Hydroxybutyric Acd 0.21 mmol/L (0.02-0.27) 11/14/16 18:15 Prolactin 7.34 ng/mL (5.18-26.53) 11/15/16 10:45 Urine Color Yellow (Yellow) 11/15/16 02:12 Urine Clarity Clear (Clear) 11/15/16 02:12 Urine pH 5.0 pH Units (5.0-8.0) 11/15/16 02:12 Ur Specific [place] 1.017 (1.010-1.025) 11/15/16 02:12 Urine Protein 100 mg/dL (Neg-Trace) H 11/15/16 02:12 Urine Glucose (UA) >=1000 mg/dL (Normal) H 11/15/16 02:12 Urine Ketones Negative mg/dL (Negative) 11/15/16 02:12 Urine Blood Negative (Negative) 11/15/16 02:12 Urine Nitrite Negative (Negative) 11/15/16 02:12 Urine Bilirubin Small (Negative) H 11/15/16 02:12 Urine Urobilinogen Normal mg/dL (Normal) 11/15/16 02:12 Ur Leukocyte Esterase Moderate (Negative) H 11/15/16 02:12 Urine Microscopic WBC 30-50 per hpf (0-3) H 11/15/16 02:12 Ur Squamous Epith Cells Moderate per lpf (None-Few) H 11/15/16 02:12 Urine Bacteria None Seen per hpf (None-Few) 11/15/16 02:12 Hyaline Casts None Seen per lpf (None-Few) 11/15/16 02:12 Urine Yeast Many per hpf (None Seen) H 11/15/16 02:12 Vancomycin Trough 16.3 mcg/mL (10-20) 11/16/16 04:10 Urine Opiates Screen Positive ng/mL (Pgnfmq=637) H 11/15/16 02:12 Ur Barbiturates Screen Negative ng/mL (Qmqkqh=468) 11/15/16 02:12 Ur Phencyclidine Scrn Negative ng/mL (Cutoff=25) 11/15/16 02:12 Ur Amphetamines Screen Negative ng/mL (Xaczuz=7520) 11/15/16 02:12 U Benzodiazepines Scrn Negative ng/mL (Binrva=103) 11/15/16 02:12 Urine Cocaine Screen Negative ng/mL (Cutoff= 300) 11/15/16 02:12 U Marijuana (THC) Screen Negative ng/mL (Cutoff = 50) 11/15/16 02:12 Ethyl Alcohol < 10 mg/dL (0-10) 11/14/16 18:15 Hep Bs Antigen Nonreactive (Nonreactive) 11/15/16 15:20 Hep Bs Antibody 0.76 mIU/mL 11/15/16 15:[address] 11/14/16 17:23 IMPRESSION: No acute intracranial abnormality. D/ / Keshav Hartman MD / Keshav Hartman MD Interpreting Provider: Keshav Hartman MD Chest X-Ray 11/14/16 20:18 IMPRESSION: Grossly clear lungs. D/ / Petr Alexis MD / Petr Alexis MD Interpreting Provider: Petr Alexis MD Abdomen/Pelvis CT 11/14/16 23:01 IMPRESSION: 1. No acute process is seen within the chest. 2. No acute process is seen within the abdomen or pelvis. 3. Hypodense lesions are seen within the kidneys bilaterally which are indeterminate. Further evaluation with renal ultrasound is recommended to confirm that these are cysts. 4. Hepatomegaly. D/ / Alla Garcia MD / Alla Garcia MD Interpreting Provider: Alla Garcia MD Chest CT 11/14/16 23:01 IMPRESSION: 1. No acute process is seen within the chest. 2. No acute process is seen within the abdomen or pelvis. 3. Hypodense lesions are seen within the kidneys bilaterally which are indeterminate. Further evaluation with renal ultrasound is recommended to confirm that these are cysts. 4. Hepatomegaly. D/ / Alla Garcia MD / Alla Garcia MD Interpreting Provider: Alla Garcia MD - Attending Attestation My signature below is to certify that this patient is under my care and that I, or the Resident Physician working with me, has had a [id number] encounter with this patient. Plan of care has been reviewed and discussed in detail with the patient. Questions addressed. Advance care directive discussion briefly address. Patient does acknowledge specific healthcare restrictions at this time. Outpatient medications schedules will be reviewed, confirmed and facilitated as appropriate. Reconciliation of home treatments including adjustments, substitutions and reintroduction to the treatment regimen will address necessary maintenance therapies for chronic pre-existing medical conditions. Smoking cessation counseling briefly addressed. The patient accepts nicotine substitution during this hospitalization. Hospital course will be dependent on clinical findings, treatment response and potential consultative interventions. The patient is at risk for acute clinical decline and morbidity given the presenting chief complaint, findings and associated comorbid conditions. Condition is serious. Prognosis is cautiously optimistic. CODE STATUS is DNR comfort care arrest DNI
[2016-11-14] MEDS: Insulin Human Regular 100 UNIT in 0.9 % Sodium Chloride 100 ML IVC SCH (22:38)
[2016-11-14] MEDS ORDERED: Lidocaine -MPF 1% 2 ML VIAL ID PRN (23:08)
[2016-11-14 23:20] LABS: Magnesium 1.7 mg/dL (1.6-2.6); Phosphorous 3.9 mg/dL (2.3-4.7)
[2016-11-14] MEDS ORDERED: Naloxone 0.4 MG/ML INJ IVP PRN (23:37)
[2016-11-14] MEDS ORDERED: *HR* Promethazine 25 MG/ML VIAL IVP PRN (23:37)
[2016-11-14] MEDS ORDERED: *HR* OxyCODONE/APAP 10/325 TABLET PO PRN (23:39)
[2016-11-15] MEDS: 0.9 % Sodium Chloride w KCl 20 MEQ/1,000 ML MLS IVC SCH ×8 (00:46→10:55)
[2016-11-15 01:23] LABS: VBG HCO3 28.5 mEq/L (21-27); VBG PH 7.33 pH Units (7.32-7.42)
[2016-11-15 01:24] LABS: Basophils # 0.1 K/mcL (0.0-0.2); Basophils % 0.7 %; Eosinophils # 0.2 K/mcL (0.0-0.6); Eosinophils % 2.3 %; Hematocrit 31.3 % (35.3-44.9); Hemoglobin 9.7 g/dL (11.5-15.4); Immature Granulocytes % 0.9 % (0-4); Immature Platelets 2.6 % (1.1-6.1); Lymphocytes # 1.3 K/mcL (0.6-4.6); Lymphocytes % 17.8 %; Mean Corpuscular Hemoglobin 26.4 pg (28.0-33.3); Mean Corpuscular Volume 85.3 fL (83.0-100.0); Mean Platelet Volume 9.5 fL (9.4-12.4); Monocytes # 0.7 K/mcL (0.0-1.3); Monocytes % 8.7 %; Neutrophils # 5.2 K/mcL (1.6-8.9); Platelet Count 230 K/mcL (140-400); Red Blood Count 3.67 M/mcL (3.82-4.97); Red Cell Distribution Width 17.9 % (11.5-14.5); Segmented Neutrophils % 69.6 %
[2016-11-15 01:37] LABS: Magnesium 1.5 mg/dL (1.6-2.6); Phosphorous 3.5 mg/dL (2.3-4.7)
[2016-11-15] MEDS: D5% in 0.45% NACL w KCl 20 MEQ/1,000 ML MLS IVC PRN ×2 (01:37→10:17)
[2016-11-15 01:38] LABS: Calcium 9.2 mg/dL (8.6-10.8); Potassium 2.8 mEq/L (3.5-4.5)
[2016-11-15] MEDS ORDERED: *HR* Morphine 2 MG/ML SYRINGE IVP PRN (01:39)
[2016-11-15] MEDS ORDERED: Acetaminophen 325 MG TABLET PO PRN (01:39)
[2016-11-15] MEDS ORDERED: *HR* OxyCODONE Immed Rel 5 MG TABLET PO PRN (01:39)
[2016-11-15 01:48] LABS: Hemoglobin A1C 11.1 %
[2016-11-15 02:20] LABS: Bilirubin,Urine Small (Negative); Blood,Urine Negative (Negative); Clarity,Urine Clear (Clear); Color,Urine Yellow (Yellow); Glucose,Urine (UA) >=1000 mg/dL (Normal); Ketones,Urine Negative (Negative); Leukocyte Esterase,Urine Moderate (Negative); Nitrite,Urine Negative (Negative); Protein,Urine 100 mg/dL (Neg-Trace); Specific Gravity,Urine 1.017 (1.010-1.025); Urobilinogen,Urine Normal (Normal)
[2016-11-15 02:23] LABS: Bacteria,Urine None Seen per hpf (None-Few); Hyaline Casts,Urine None Seen per lpf (None-Few); Squamous Epithelial Cell,Urine Moderate per lpf (None-Few); WBC,Urine 30-50 per hpf (0-3)
[2016-11-15 02:27] LABS: Amphetamine Screen,Urine Negative ng/mL (Cutoff=1000); Barbiturate Screen,Urine Negative ng/mL (Cutoff=200); Benzodiazepines Screen,Urine Negative ng/mL (Cutoff=200); Cannabinoid Screen,Urine Negative ng/mL (Cutoff = 50); Cocaine Screen,Urine Negative ng/mL (Cutoff= 300); Opiate Screen,Urine Positive ng/mL (Cutoff=300); Phencyclidine Screen,Urine Negative ng/mL (Cutoff=25)
[2016-11-15] MEDS: *HR* OxyCODONE ER (12 HR) 20 MG TABLET PO SCH ×2 (02:27→12:25)
[2016-11-15 02:37] LABS: Yeast,Urine Many per hpf (None Seen)
[2016-11-15] MEDS: Albuterol Neb 0.63 MG/3 ML VIAL IH SCH ×4 (04:59→20:06)
[2016-11-15] MEDS ORDERED: Magnesium Sulfate 2 GM in D5% in Water 100 ML IVPB ONE (05:23)
[2016-11-15] MEDS ORDERED: Vancomycin 2,000 MG in D5% in Water 250 ML IVPB SCH (06:00)
[2016-11-15] MEDS ORDERED: Vancomycin 2,000 MG in D5% in Water 500 ML IVPB ONE (06:30)
[2016-11-15 06:55] LABS: VBG HCO3 24.2 mEq/L (21-27); VBG PH 7.5 pH Units (7.32-7.42)
[2016-11-15] MEDS ORDERED: *HR* Enoxaparin 40 MG/0.4 ML SYRINGE SQ SCH (07:00)
[2016-11-15 07:01] LABS: Magnesium 1.8 mg/dL (1.6-2.6)
[2016-11-15 07:04] LABS: Chol/HDL Ratio 4.5 (0-4.9)
[2016-11-15 07:06] LABS: Albumin 2.5 g/dL (3.5-5.0); Albumin/Globulin Ratio 0.7 (1.1-2.2); Bilirubin,Total 0.5 mg/dL (0.2-1.2); Calcium 8.8 mg/dL (8.6-10.8); Globulin 3.4 g/dL (2.4-3.5); Potassium 3.6 mEq/L (3.5-4.5); Total Protein 5.9 g/dL (6.0-8.3)
[2016-11-15] MEDS: Furosemide 40 MG TABLET PO SCH ×2 (08:23→20:21)
[2016-11-15] MEDS: Pantoprazole 40 MG VIAL IVP SCH (08:25)
[2016-11-15] MEDS: Sennosides 8.6 MG TABLET PO SCH ×2 (08:26→20:21)
[2016-11-15] MEDS: Insulin Human Regular 100 UNIT in 0.9 % Sodium Chloride 100 ML IVC SCH ×2 (08:35→11:10)
[2016-11-15] MEDS: (Colestipol Hcl [Colestid] 1 GM) PO SCH ×2 (08:53→20:28)
[2016-11-15] MEDS ORDERED: Gabapentin 100 MG CAPSULE PO SCH (09:00)
[2016-11-15] MEDS: Calcium Acetate 667 MG CAPSULE PO SCH ×3 (09:35→16:58)
[2016-11-15 11:09] LABS: Calcium 8.7 mg/dL (8.6-10.8); Potassium 3.3 mEq/L (3.5-4.5)
[2016-11-15] MEDS: hydrALAZINE 25 MG TABLET PO SCH ×2 (11:09→20:21)
[2016-11-15] MEDS: amLODIPine 5 MG TABLET PO SCH (11:09)
[2016-11-15] MEDS: Budesonide/Formoterol 160/4.5 MDI IH SCH ×2 (11:11→20:07)
[2016-11-15 11:31] LABS: Prolactin 7.34 ng/mL (5.18-26.53)
[2016-11-15] MEDS ORDERED: *HR* Dextrose 50 % in Water (Syg) 50 ML SYRINGE IVP PRN (11:49)
[2016-11-15] MEDS ORDERED: D5% in Water 1,000 ML IV PRN (11:49)
[2016-11-15] MEDS ORDERED: Dextrose Gel 15 GM PO PRN ×2 (11:49)
--- NOTE | 2016-11-15 11:55 | Internal Med Progress Note ---
Date of Encounter: 11/15/16 Time of Encounter: 11:53 - Assessment and plan (1) Hyperosmolar non-ketotic state in patient with type 2 diabetes mellitus Current Visit: Yes Status: Acute Assessment and plan: Patient was noted to have presented with hyperglycemic hyperosmolar nonketotic state with persistent nausea, vomiting. She has been started on IV insulin infusion along with aggressive IV hydration and currently her blood sugars and osmolality improved. Blood sugars are noted to be less than 100. She will be started on dextrose fluids along with basal bolus insulin regimen, will discontinue insulin drip. Start diabetic renal diet. Hemoglobin A1c is noted to be 11.1% suggestive of uncontrolled diabetes. Patient is noted to be living alone with home health services and there has been questionable decision making capacity in the past. Patient will benefit from placement in extended care facility given her inability to take care of herself and multiple medical comorbidities. Physical therapy evaluation. (2) Acute metabolic encephalopathy Current Visit: Yes Status: Resolved Assessment and plan: Patient is currently at baseline mental status. Encephalopathy was likely metabolic due to hyperglycemia. (3) Cellulitis Current Visit: Yes Status: Acute Assessment and plan: Patient noted to have mild cellulitis on chronic stasis dermatitis on bilateral anterior legs. Follow blood cultures and continue IV vancomycin and Rocephin for now. Supportive care and lower extremity elevation. Qualifiers: Site of cellulitis: extremity Site of cellulitis of extremity: lower extremity Laterality: right Qualified Code(s): L03.115 - Cellulitis of right lower limb (4) Decubitus ulcer of sacral region, stage 1 Current Visit: Yes Status: Acute (5) ESRD (end stage renal disease) Current Visit: Yes Status: Chronic Assessment and plan: Consulted nephrology for hemodialysis needs. Patient will receive regular hemodialysis session in a.m. Continue phosphate binders, multivitamins. (6) CAD (coronary artery disease) Current Visit: Yes Status: Chronic Assessment and plan: Continue home meds. Patient noted to have a recent normal stress test and also recently underwent cardiac catheterization with no indication for revascularization/stent placement. Qualifiers: Coronary Disease-Associated Artery/Lesion type: [place] artery [place] vs. transplanted heart: [place] heart Associated angina: without angina Qualified Code(s): I25.10 - Atherosclerotic heart disease of [place] coronary artery without angina pectoris (7) CHF (congestive heart failure) Current Visit: Yes Status: Chronic Assessment and plan: Not noted to be in acute exacerbation. Resume home medications. Qualifiers: Congestive heart failure type: diastolic Congestive heart failure chronicity: acute on chronic Qualified Code(s): I50.33 - Acute on chronic diastolic (congestive) heart failure (8) COPD (chronic obstructive pulmonary disease) Current Visit: Yes Status: Chronic Assessment and plan: Not noted to be in acute exacerbation. She does have chronic hypoxic respiratory failure due to COPD and noted to be on home oxygen. Continue bronchodilators and when necessary supplemental oxygen. Qualifiers: COPD type: emphysema Emphysema type: unspecified Qualified Code(s): J43.9 - Emphysema, unspecified (9) HTN (hypertension) Current Visit: Yes Status: Chronic Assessment and plan: Currently noted to have low blood pressure. Hold antihypertensives, continue IV hydration and monitor vitals closely. She is noted to have her blood pressure cuff on right leg, discussed with nursing staff to check her blood pressure on right arm. Qualifiers: Hypertension type: essential hypertension Qualified Code(s): I10 - Essential (primary) hypertension (10) Morbid (severe) obesity due to excess calories Current Visit: Yes Status: Chronic - Subjective Interval history: Reports chronic pain in right wrist, right hip and leg. Noted to be at her baseline mental status, oriented to self and place. No nausea, vomiting or diarrhea. Reports resolved abdominal pain. - Constitutional Vitals: Temp Pulse Resp BP Pulse Ox 98.1 F 80 14 116/50 95 11/15/16 11:15 11/15/16 11:43 11/15/16 11:15 11/15/16 11:43 11/15/16 11:43 General appearance: Present: A&O X 2, morbidly obese, answers questions appropriately - Head Head exam: Present: atraumatic, normocephalic - Neck Neck exam general surgery: Present: supple, trachea midline. Absent: lymphadenopathy Additional comments: Left neck superficial hematoma from recent fall. Left IJ CVC in place. - Respiratory Respiratory exam: Present: CTAB. Absent: accessory muscle use, rales, rhonchi, wheezes - Cardiovascular Cardiovascular exam: Present: RRR, +S1, +S2. Absent: diastolic murmur, gallop, rubs, systolic murmur - GI/Abdominal GI/Abdominal exam: Present: normal bowel sounds, soft (Obese), no peritoneal signs. Absent: distended, tenderness - Extremities Exam Extremities exam: Present: joint swelling (Right knee swelling from recent injury), pedal edema (Bilateral anterior leg stasis dermatitis with new erythema and warmth), warm, radial pulses palpable and symetrical. Absent: calf tenderness, cyanotic Additional comments: Right wrist and distal forearm noted to be in plaster cast - Neurological Exam Neurological exam: Present: CN II-XII intact, oriented X3, no focal deficits. Absent: pronater drift, facial droop, speech deficit - Skin Skin exam: Present: dry, intact Internal Medicine: Result - Labs CBC & Chem 7: 11/15/16 01:16 11/15/16 10:45 Labs: Short CBC 11/15/16 Range/Units 01:16 WBC 7.4 (4.3-11.1) K/mcL Hgb 9.7 L (11.5-15.4) g/dL Hct 31.3 L (35.3-44.9) % Plt Count 230 (140-400) K/mcL Neutrophils # 5.2 (1.6-8.9) K/mcL BMP 11/15/16 11/15/16 11/15/16 01:16 06:43 10:45 Sodium 136 D 132 L 136 Potassium 2.8 L 3.6 3.3 L Chloride 100 99 104 Carbon Dioxide 21 18 L 22 BUN 36 H 34 H 32 H Creatinine 3.36 H 3.11 H 2.74 H Glucose 166 H 304 H 72 Calcium 9.2 8.8 8.7 Liver Function 11/15/16 Range/Units 06:43 Total Bilirubin 0.5 (0.2-1.2) mg/dL AST 30 (5-34) Units/L ALT 19 (0-55) Units/L Alkaline Phosphatase 153 H (38-126) Units/L Albumin 2.5 L (3.5-5.0) g/dL Urine 11/15/16 Range/Units 02:12 Urine Color Yellow (Yellow) Urine Clarity Clear (Clear) Urine pH 5.0 (5.0-8.0) pH Units Ur Specific [place] 1.017 (1.010-1.025) Urine Protein 100 H (Neg-Trace) mg/dL Urine Glucose (UA) >=1000 H (Normal) mg/dL - ABG Interpretation ABG results: PT/INR, D-dimer PT 11.7 Seconds (9.4-12.1) 11/14/16 18:15 - Impressions Impressions Abdomen/Pelvis CT 11/14/16 23:01 IMPRESSION: 1. No acute process is seen within the chest. 2. No acute process is seen within the abdomen or pelvis. 3. Hypodense lesions are seen within the kidneys bilaterally which are indeterminate. Further evaluation with renal ultrasound is recommended to confirm that these are cysts. 4. Hepatomegaly. D/ / Alla Garcia MD / Alla Garcia MD Interpreting Provider: Alla Garcia MD Chest CT 11/14/16 23:01 IMPRESSION: 1. No acute process is seen within the chest. 2. No acute process is seen within the abdomen or pelvis. 3. Hypodense lesions are seen within the kidneys bilaterally which are indeterminate. Further evaluation with renal ultrasound is recommended to confirm that these are cysts. 4. Hepatomegaly. D/ / Alla Garcia MD / Alla Garcia MD Interpreting Provider: Alla Garcia MD Consult Discharge Plan - Plan Referrals: Tristen Quintana MD [Primary Care Provider] -
[2016-11-15] MEDS ORDERED: D5% in 0.45% NACL w KCl 10 MEQ/1,000 ML MLS IVC SCH (12:00)
--- NOTE | 2016-11-15 12:40 | Nephrology Consult Note ---
Date of Encounter: 11/15/16 Time of Encounter: 12:00 Assessment and Plan (1) ESRD (end stage renal disease) Current Visit: Yes Status: Chronic Not hyperkalemic today and her BUN was only 32, so this suggests that her acute encephalopathy is unlikely to be from uremia. So I recommend that her next HD be scheduled for tomorrow (Wednesday). This encephalopathy could be from medication: gabapentin should be no higher than 300mg per day, so I changed her script from 200mg tid to just 100mg tid. Also I noticed that Lovenox 40mcg was ordered for DVT prophylaxis, but this is not the renal dosing for a pt on dialysis, so I changed it to Heparin 5000 units SQ BID. Thank you for consulting the [facility] group. Will follow with you. (2) Anemia Current Visit: No Status: Chronic Qualifiers: Anemia type: other cause Other causes of anemia: chronic disease, kidney Qualified Code(s): N18.9 - Chronic kidney disease, unspecified; D63.1 - Anemia in chronic kidney disease (3) HTN (hypertension) Current Visit: Yes Status: Chronic Qualifiers: Hypertension type: essential hypertension Qualified Code(s): I10 - Essential (primary) hypertension (4) Altered mental status Current Visit: Yes Status: Acute Qualifiers: Altered mental status type: unspecified Qualified Code(s): R41.82 - Altered mental status, unspecified (5) Cellulitis of left lower extremity Current Visit: Yes Status: Acute (6) Cellulitis of right lower extremity Current Visit: Yes Status: Acute (7) Hyperglycemia Current Visit: Yes Status: Acute History of Present Illness - Reason for Consult Consult date: 11/15/16 end stage renal disease Requesting physician: Jenifer Duarte - Chief Complaint ESRD - History of Present Illness Lynnette Riley is a very pleasant lady with a pmh of obesity, HTN, ESRD on HD M/W/ F and et al who presented with several days of feeling poorly. +N/V/D and feeling poorly since middle of last week Reviewed outside [facility] medical records: she appears to have missed a few HD treatments in the last 1-2 weeks but did go to dialysis on Wednesday (two days ago) . However she was only on dialysis for about 2.5hr instead of her typical 3.5hr. She went home after HD she said. Was very hyperglycemic upon presentation assoc with confusion I was notified of this consult at about noon, since the pt was not on the consult list. Dialysis History: [facility] Pt of Dr. Rivers. Started HD about 4 months ago. Dry Weight as been recently reset to 130kg. Past Med Surg Social Fam HX - Past Medical History Medical history: arthritis, atrial fibrillation, CHF, COPD, coronary artery disease, CVA, DVT, diabetes, dialysis, fibromyalgia, GERD, hyperlipidemia, hypertension, kidney stones, migraine, myocardial infarction, osteoporosis, peripheral artery disease, renal disease, other Psychiatric history: anxiety - Past Surgical History Surgical History: angioplasty/stent, appendectomy, cholecystectomy, coronary bypass (CABG), hysterectomy, knee replacement, other, IVC filter - Social History Smoking Status: Current every day smoker Smokeless Tobacco Status: No Alcohol use: none Drug use: none - Family History Father Living Status: Hx Family Cardiac Disorders: Yes Hx Family Endocrine Disorder: Yes Mother Living Status: Still Living Hx Family Respiratory Disorders: Yes (end stage copd) Medications and Allergies Amitriptyline [Elavil] 100 mg PO HS 05/11/15 [History] Clopidogrel [Plavix] 75 mg PO DAILY 05/11/15 [History] Ergocalciferol (VITAMIN D2) [Vitamin D2 (50,000 UNIT)] 50,000 units PO TH #0 [History] Omeprazole [PriLOSEC] 20 mg PO BID 05/11/15 [History] Rosuvastatin [Crestor] 40 mg PO HS 05/11/15 [History] Sevelamer [Renvela] 800 mg PO TIDWM 05/11/15 [History] Albuterol Neb [AccuNeb] 3 ml IH Q6H PRN 06/12/15 [History] Aripiprazole [Abilify] 10 mg PO HS 06/12/15 [History] Colestipol HCl [Colestid] 1 gm PO BID 06/12/15 [History] Sennosides [Senna] 8.6 mg PO BID 06/12/15 [History] Carvedilol 12.5 mg PO BID 10/28/15 [History] HydrALAZINE 50 mg PO BID 12/30/15 [History] Oxycodone HCl/Acetaminophen [Percocet 10-325 mg Tablet] 1 tab PO Q6H PRN [History] Amlodipine [Norvasc] 5 mg PO DAILY 06/09/16 [History] Insulin Glargine,Hum.rec.anlog [Lantus Solostar] 60 unit SQ BID 06/09/16 [ History] Budesonide/Formoterol 160/4.5 [Symbicort 160/4.5] 2 puff IH BIDR inhaler [Rx] Gabapentin [Neurontin] 200 mg PO TID 30 Days 06/18/16 [Rx] Calcium Acetate [Phos-LO] 667 mg PO TIDWM 09/06/16 [History] Furosemide [Lasix] 80 mg PO BID 09/06/16 [History] Insulin LISPRO [Humalog] 20 unit SQ TIDWM 09/06/16 [History] Metolazone [Zaroxolyn] 2.5 mg PO MOWEFR 09/06/16 [History] Oxycodone HCl [Oxycontin] 60 mg PO Q12H 09/06/16 [History] Oxygen 1 l .ROUTE HS PRN 09/06/16 [History] Pnv95/Ferrous Fumarate/FA [ Caplet] 1 tab PO DAILY 11/15/16 [History] Tiotropium [place] [Spiriva] 18 mcg IH DAILY 11/15/16 [History] Allergies No Known Allergies Allergy (Verified 10/29/16 08:38) Review of Systems All Systems: reviewed and no additional remarkable complaints except as stated Exam - Vital Signs Vital signs: Initial Vital Signs Temp Pulse Resp BP Pulse Ox 97.3 F L 85 14 110/40 98 11/14/16 17:09 11/14/16 17:09 11/14/16 17:09 11/14/16 17:09 11/14/16 17:09 Vital Signs - Last 8 Hours Temp Pulse Resp BP Pulse Ox 11/15/16 11:43 80 116/50 95 11/15/16 11:28 94 82/61 98 11/15/16 11:15 98.1 F 83 14 80/59 11/15/16 11:00 83 91/50 97 11/15/16 08:11 88 96 11/15/16 07:29 89 127/65 97 Intake and Output 11/14/16 11/15/16 11/15/16 23:59 07:59 15:59 Intake Total 866 / 866 2560 / 2560 Output Total 400 / 400 0 / 0 Balance 466 / 466 2560 / 2560 Intake: IV Fluids 866 / 866 2560 / 2560 KCl 20 mEq in 0.9% Sodium 450 / 450 1500 / 1500 Chloride 20 meq In 1,000 ml @ 500 mls/hr IVC .Q2H NATALIE Rx#:[id number] KCl 20mEq IN D5%-0.45 50 / 50 950 / 950 NACL 20 meq In 1,000 ml @ 250 mls/hr IVC .Q4H PRN Rx#:[id number] HumuLIN R 100 UNIT In 0. 3 66 / 66 110 / 110 9 % Sodium Chloride 100 ML @ 0.1 UNIT/KG/HR 13.43 mls/hr IVC CONT NATALIE Rx#: [id number] Rocephin 1,000 MG In 100 / 100 Dextrose 5% (Minibag+) 100 ML 100 ML @ 200 mls/ hr IVPB Q12HR NATALIE Rx#: [id number] Potassium Chloride 20 mEq 200 / 200 /100 mL 20 meq In 100 ml @ 100 mls/hr IVPB ONCE PRN Rx#:[id number] Oral 0 / 0 Output: Urine 0 / 0 Straight Cath 400 / 400 Other: Meal Breakfast Percent of Meal Consumed 0% Weight 129.546 kg 133 kg Blood Glucose* 438 293 102 Patient Weight 11/15/16 23:59 Weight 133 kg - General Appearance General appearance: chronically ill, fatigue, frail EENT: ATNC, PERRL, mucous membranes dry Neck: supple Respiratory: course breath sounds Cardiology: edema, regular rate, regular rhythm, normal S1, normal S2 - Dialysis Access Dialysis Vascular Access: Arteriovenous Graft (Left upper arm) thrill: Yes bruit: Yes Gastrointestinal: normoactive bowel sounds, no tenderness Integumentary: no rash, warm and dry Neurologic: no asterixis, confused Musculoskeletal: no erythema, no clubbing Psychiatric: cooperative Results - Lab Results 11/15/16 01:16 11/15/16 10:45 Most recent lab results Calcium 8.7 mg/dL (8.6-10.8) 02/05/17 10:45 Phosphorus 4.0 mg/dL (2.3-4.7) 11/15/16 06:43 Magnesium 1.8 mg/dL (1.6-2.6) 11/15/16 06:43 I reviewed the outside medical records, including labs, meds, vitals and I also reviewed the above auto-generated data tran including labs, meds, vitals, history and imaging. Consult Discharge Plan - Plan Referrals: Tristen Quintana MD [Primary Care Provider] -
[2016-11-15] MEDS: Insulin DETEMIR 100 UNIT/ML X5UNITS SQ SCH ×2 (13:45→20:29)
[2016-11-15] MEDS: Gabapentin 100 MG CAPSULE PO SCH ×2 (15:10→20:21)
[2016-11-15] MEDS: Insulin LISPRO 300 UNITS/3 ML VIAL SQ SCH ×2 (16:58→20:26)
[2016-11-15] MEDS: ARIPiprazole 10 MG TABLET PO SCH (20:21)
--- NOTE | 2016-11-15 20:30 | Electrocardiograph Report ---
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
[2016-11-16] MEDS: *HR* OxyCODONE ER (12 HR) 20 MG TABLET PO SCH ×3 (01:41→23:21)
[2016-11-16] MEDS: Albuterol Neb 0.63 MG/3 ML VIAL IH SCH ×4 (04:11→22:24)
[2016-11-16 04:32] LABS: Basophils # 0.1 K/mcL (0.0-0.2); Basophils % 0.9 %; Eosinophils # 0.4 K/mcL (0.0-0.6); Eosinophils % 4.4 %; Hematocrit 30.5 % (35.3-44.9); Hemoglobin 9.2 g/dL (11.5-15.4); Immature Granulocytes % 1.1 % (0-4); Lymphocytes # 1.7 K/mcL (0.6-4.6); Lymphocytes % 21.4 %; Mean Corpuscular HGB Conc 30.2 g/dL (31.6-35.5); Mean Corpuscular Volume 86.2 fL (83.0-100.0); Mean Platelet Volume 10.2 fL (9.4-12.4); Monocytes # 0.7 K/mcL (0.0-1.3); Monocytes % 8.2 %; Neutrophils # 5.1 K/mcL (1.6-8.9); Platelet Count 206 K/mcL (140-400); Red Blood Count 3.54 M/mcL (3.82-4.97); Red Cell Distribution Width 18.2 % (11.5-14.5)
[2016-11-16 04:42] LABS: Calcium 8.9 mg/dL (8.6-10.8); Potassium 3.8 mEq/L (3.5-4.5)
[2016-11-16] MEDS ORDERED: 0.9 % Sodium Chloride 250 ML IV PRN (08:12)
[2016-11-16] MEDS: Calcium Acetate 667 MG CAPSULE PO SCH ×3 (08:30→18:04)
[2016-11-16] MEDS: metOLazone 2.5 MG TABLET PO SCH (08:30)
[2016-11-16] MEDS: Gabapentin 100 MG CAPSULE PO SCH ×3 (08:30→20:11)
[2016-11-16] MEDS: Insulin LISPRO 300 UNITS/3 ML VIAL SQ SCH ×4 (08:31→20:12)
[2016-11-16] MEDS: *HR* Heparin 5,000 UNIT/ML VIAL SQ SCH ×2 (08:31→20:25)
[2016-11-16] MEDS: Pantoprazole 40 MG VIAL IVP SCH (08:31)
[2016-11-16] MEDS: Sennosides 8.6 MG TABLET PO SCH ×2 (08:31→20:11)
[2016-11-16] MEDS: (Colestipol Hcl [Colestid] 1 GM) PO SCH ×2 (08:32→20:12)
[2016-11-16] MEDS: Insulin DETEMIR 100 UNIT/ML X5UNITS SQ SCH ×2 (08:41→20:10)
[2016-11-16] MEDS ORDERED: Aminoglycoside Consult 1 EACH MC ONE (08:49)
[2016-11-16] MEDS ORDERED: 0.9 % Sodium Chloride 2,000 ML ONE (09:07)
[2016-11-16] MEDS ORDERED: *HR* Heparin 5,000 UNIT/ML VIAL ONE (09:07)
[2016-11-16] MEDS: Budesonide/Formoterol 160/4.5 MDI IH SCH ×2 (09:20→22:24)
[2016-11-16 09:58] LABS: Hepatitis B Surface Antibody 0.76 mIU/mL; Hepatitis B Surface Antigen Nonreactive (Nonreactive)
--- NOTE | 2016-11-16 11:46 | Nephrology Progress Note ---
Date of Encounter: 11/16/16 Time of Encounter: 10:45 - Assessment and Plan (1) ESRD (end stage renal disease) Current Visit: Yes Status: Chronic Dialysis note: HD today for clearance and volume mgt. RACHIDE AVG with adequate access pressures and Qb and Qd when I saw her. Next HD is planned for Wednesday (2) Anemia Current Visit: No Status: Chronic Goal Hgb is 10-11 Qualifiers: Anemia type: other cause Other causes of anemia: chronic disease, kidney Qualified Code(s): N18.9 - Chronic kidney disease, unspecified; D63.1 - Anemia in chronic kidney disease (3) HTN (hypertension) Current Visit: Yes Status: Chronic 129/65 earlier today. Doing well. Qualifiers: Hypertension type: essential hypertension Qualified Code(s): I10 - Essential (primary) hypertension (4) Altered mental status Current Visit: Yes Status: Acute As per primary. If she remains on Gabapentine, be sure to keep the renal dosing (300mg per day as a max). Qualifiers: Altered mental status type: unspecified Qualified Code(s): R41.82 - Altered mental status, unspecified (5) Cellulitis of left lower extremity Current Visit: Yes Status: Acute (6) Cellulitis of right lower extremity Current Visit: Yes Status: Acute As per primary. (7) Hyperglycemia Current Visit: Yes Status: Acute As per primary. Subjective Principal diagnosis: ESRD Interval history: The pt was seen/examined both in her room (earlier today) and while on dialysis at about 10:45am. She did not affirm N/V/D and feels more awake and alert and less confused. She has an improving appetite as well, she said. Objective - Vital Signs Vital signs: Vital Signs Temp Pulse Resp BP Pulse Ox 11/16/16 11:30 98/53 11/16/16 11:15 109/67 11/16/16 11:00 99/56 11/16/16 10:45 115/69 11/16/16 10:30 108/73 11/16/16 10:15 137/61 11/16/16 10:00 128/53 11/16/16 09:45 97 F L 22 109/56 11/16/16 09:18 16 133/73 95 11/16/16 08:51 79 96 11/16/16 08:08 98.2 F 75 20 133/73 98 11/16/16 07:18 97.8 F 75 18 128/65 98 11/16/16 04:40 71 11/16/16 04:16 18 98 11/16/16 04:02 97.7 F 73 18 129/62 97 11/16/16 00:30 99.2 F 74 20 137/66 98 11/15/16 20:50 99 11/15/16 20:06 17 98 11/15/16 20:00 77 11/15/16 19:03 98.3 F 75 20 114/74 98 11/15/16 17:13 79 20 135/60 98 11/15/16 16:18 20 97 11/15/16 16:00 97.5 F L 78 22 116/50 100 11/15/16 15:15 74 Intake and Output 11/15/16 11/16/16 11/16/16 23:59 07:59 15:59 Intake Total 365 / 365 340 / 340 1058 / 1058 Output Total 700 / 700 0 / 0 Balance -335 / -335 340 / 340 1058 / 1058 Intake: IV Fluids 365 / 365 100 / 100 KCl 10mEq in D5-0.45 NaCl 265 / 265 10 meq In 1,000 ml @ 75 mls/hr IVC .[id number] NATALIE Rx#:[id number] Rocephin 1,000 MG In 100 / 100 100 / 100 Dextrose 5% (Minibag+) 100 ML 100 ML @ 200 mls/ hr IVPB Q12HR NATALIE Rx#: [id number] Oral 240 / 240 458 / 458 Intake, Rinseback and 600 / 600 Flushes Output: Urine 700 / 700 0 / 0 Other: Meal Dinner Breakfast Percent of Meal Consumed 50% 100% Weight 133.8 kg Blood Glucose* 193 197 Hemodialysis Net Fluid 2130 Removed (mL) Patient Weight 11/16/16 23:59 Weight 133.8 kg - General Appearance General appearance: Present: well-developed, well-nourished, chronically ill, fatigue, frail EENT: Present: ATNC, PERRL, mucous membranes moist Neck: Present: supple Respiratory: Present: clear Cardiology: Present: edema, normal S1, normal S2 Dialysis Vascular Access: Arteriovenous Graft thrill: Yes bruit: Yes Gastrointestinal: Present: normoactive bowel sounds, no tenderness, no guarding Integumentary: Present: warm and dry, ecchymotic Neurologic: Present: no asterixis, alert and oriented x3 Musculoskeletal: Present: no erythema, no clubbing Psychiatric: Present: mood/affect appropriate, cooperative - Lab 11/16/16 04:10 11/16/16 04:10 Most recent lab results Calcium 8.9 mg/dL (8.6-10.8) 11/16/16 04:10 Phosphorus 4.0 mg/dL (2.3-4.7) 11/16/16 04:10 Magnesium 1.8 mg/dL (1.6-2.6) 11/15/16 06:43 Consult Discharge Plan - Plan Referrals: Tristen Quintana MD [Primary Care Provider] - 11/23/16 4:00 pm
[2016-11-16] MEDS: Insulin Human Regular 100 UNIT in 0.9 % Sodium Chloride 100 ML IVC SCH (13:24)
[2016-11-16] MEDS: amLODIPine 5 MG TABLET PO SCH (14:40)
[2016-11-16] MEDS: Furosemide 40 MG TABLET PO SCH ×2 (14:40→20:11)
[2016-11-16] MEDS: hydrALAZINE 25 MG TABLET PO SCH ×2 (14:40→20:10)
--- NOTE | 2016-11-16 15:11 | Internal Med Progress Note ---
Date of Encounter: 11/16/16 Time of Encounter: 14:45 - Assessment and plan (1) Hyperosmolar non-ketotic state in patient with type 2 diabetes mellitus Current Visit: Yes Status: Resolved Assessment and plan: Improved blood sugars and serum osmolality. Continue diabetic renal diet. Continue Accu-Chek blood glucose monitoring with basal bolus insulin regimen. Hemoglobin A1c noted to be elevated, suggestive of long-term uncontrolled diabetes. Patient will benefit from placement in extended care facility but she is known to have refused in the past. She will need continuation of home health services at the time of discharge including physical therapy. (2) Acute metabolic encephalopathy Current Visit: Yes Status: Resolved (3) Cellulitis Current Visit: Yes Status: Acute Assessment and plan: Improving clinically. Blood cultures negative. Continue IV Rocephin and hold vancomycin for now. Supportive care. Qualifiers: Site of cellulitis: extremity Site of cellulitis of extremity: lower extremity Laterality: right Qualified Code(s): L03.115 - Cellulitis of right lower limb (4) Decubitus ulcer of sacral region, stage 1 Current Visit: Yes Status: Chronic Assessment and plan: Present on admission due to chronic sedentary lifestyle. Frequent repositioning and pressure relief. (5) ESRD (end stage renal disease) Current Visit: Yes Status: Chronic Assessment and plan: Nephrology consult and follow-up appreciated. Patient received hemodialysis today. Prophylactic anticoagulation changed to heparin and dose of gabapentin decreased due to renal dysfunction. Continue multivitamins and phosphate binders. (6) CAD (coronary artery disease) Current Visit: Yes Status: Chronic Assessment and plan: Continue home meds. Patient noted to have a recent normal stress test and also recently underwent cardiac catheterization with no indication for revascularization/stent placement. Qualifiers: Coronary Disease-Associated Artery/Lesion type: [place] artery [place] vs. transplanted heart: [place] heart Associated angina: without angina Qualified Code(s): I25.10 - Atherosclerotic heart disease of [place] coronary artery without angina pectoris (7) CHF (congestive heart failure) Current Visit: Yes Status: Chronic Assessment and plan: Not noted to be in acute exacerbation. Resume home medications. Qualifiers: Congestive heart failure type: diastolic Congestive heart failure chronicity: acute on chronic Qualified Code(s): I50.33 - Acute on chronic diastolic (congestive) heart failure (8) COPD (chronic obstructive pulmonary disease) Current Visit: Yes Status: Chronic Assessment and plan: Not noted to be in acute exacerbation. She does have chronic hypoxic respiratory failure due to COPD and noted to be on home oxygen. Continue bronchodilators and when necessary supplemental oxygen. Qualifiers: COPD type: emphysema Emphysema type: unspecified Qualified Code(s): J43.9 - Emphysema, unspecified (9) HTN (hypertension) Current Visit: Yes Status: Chronic Qualifiers: Hypertension type: essential hypertension Qualified Code(s): I10 - Essential (primary) hypertension (10) Morbid (severe) obesity due to excess calories Current Visit: Yes Status: Chronic - Subjective Interval history: Appears and feels much better today. Received hemodialysis session today. Improved right wrist pain. No nausea, vomiting, chest pain, shortness of breath. - Constitutional Vitals: Temp Pulse Resp BP Pulse Ox 98.5 F 88 16 94/70 95 11/16/16 13:40 11/16/16 13:40 11/16/16 13:40 11/16/16 13:40 11/16/16 13:40 General appearance: Present: A&O X 2, morbidly obese, answers questions appropriately - Head Head exam: Present: atraumatic, normocephalic - Neck Neck exam general surgery: Present: normal inspection (Left neck contusion and superficial hematoma. Left IJ CVC in place.), supple, trachea midline. Absent : lymphadenopathy - Respiratory Respiratory exam: Present: CTAB. Absent: accessory muscle use, rales, rhonchi, wheezes - Cardiovascular Cardiovascular exam: Present: RRR, +S1, +S2. Absent: diastolic murmur, gallop, rubs, systolic murmur - GI/Abdominal GI/Abdominal exam: Present: normal bowel sounds, soft (Obese and nontender), no peritoneal signs. Absent: distended, tenderness - Extremities Exam Extremities exam: Present: pedal edema, warm, radial pulses palpable and symetrical. Absent: calf tenderness, cyanotic - Neurological Exam Neurological exam: Present: CN II-XII intact, oriented X3, no focal deficits. Absent: pronater drift, facial droop, speech deficit - Skin Skin exam: Present: dry, intact Internal Medicine: Result - Labs CBC & Chem 7: 11/16/16 04:10 11/16/16 04:10 Labs: Short CBC 11/16/16 Range/Units 04:10 WBC 7.9 (4.3-11.1) K/mcL Hgb 9.2 L (11.5-15.4) g/dL Hct 30.5 L (35.3-44.9) % Plt Count 206 (140-400) K/mcL Neutrophils # 5.1 (1.6-8.9) K/mcL BMP 11/16/16 04:10 Sodium 133 L Potassium 3.8 Chloride 101 Carbon Dioxide 21 BUN 32 H Creatinine 2.94 H Glucose 183 H Calcium 8.9 - ABG Interpretation ABG results: PT/INR, D-dimer PT 11.7 Seconds (9.4-12.1) 11/14/16 18:15 Consult Discharge Plan - Plan Referrals: Tristen Quintana MD [Primary Care Provider] - 11/23/16 4:00 pm
[2016-11-16] MEDS ORDERED: Vancomycin 1,000 MG in D5% in Water 250 ML IVPB ONE (18:00)
[2016-11-16] MEDS ORDERED: Ondansetron 4 MG/2 ML VIAL IVP PRN (18:24)
[2016-11-16] MEDS: ARIPiprazole 10 MG TABLET PO SCH (20:11)
[2016-11-17] MEDS: Albuterol Neb 0.63 MG/3 ML VIAL IH SCH ×4 (04:19→22:29)
[2016-11-17 05:12] LABS: Basophils # 0.1 K/mcL (0.0-0.2); Basophils % 0.9 %; Eosinophils # 0.4 K/mcL (0.0-0.6); Hemoglobin 10.5 g/dL (11.5-15.4); Immature Granulocytes % 1.8 % (0-4); Lymphocytes # 1.9 K/mcL (0.6-4.6); Lymphocytes % 19.1 %; Mean Corpuscular HGB Conc 30.9 g/dL (31.6-35.5); Mean Corpuscular Hemoglobin 26.6 pg (28.0-33.3); Mean Corpuscular Volume 86.1 fL (83.0-100.0); Monocytes # 0.8 K/mcL (0.0-1.3); Monocytes % 8.5 %; Neutrophils # 6.5 K/mcL (1.6-8.9); Platelet Count 207 K/mcL (140-400); Red Blood Count 3.95 M/mcL (3.82-4.97); Red Cell Distribution Width 18.5 % (11.5-14.5); Segmented Neutrophils % 65.7 %
[2016-11-17 05:33] LABS: Calcium 9.4 mg/dL (8.6-10.8); Potassium 4.4 mEq/L (3.5-4.5)
[2016-11-17] MEDS: *HR* Heparin 5,000 UNIT/ML VIAL SQ SCH ×2 (07:57→18:14)
[2016-11-17] MEDS: Furosemide 40 MG TABLET PO SCH ×2 (07:58→21:13)
[2016-11-17] MEDS: amLODIPine 5 MG TABLET PO SCH (07:58)
[2016-11-17] MEDS: Sennosides 8.6 MG TABLET PO SCH ×2 (07:58→21:13)
[2016-11-17] MEDS: metOLazone 2.5 MG TABLET PO SCH (07:58)
[2016-11-17] MEDS: hydrALAZINE 25 MG TABLET PO SCH ×2 (07:58→21:12)
[2016-11-17] MEDS: Calcium Acetate 667 MG CAPSULE PO SCH ×3 (07:58→16:12)
[2016-11-17] MEDS: Gabapentin 100 MG CAPSULE PO SCH ×3 (07:58→21:12)
[2016-11-17] MEDS: (Colestipol Hcl [Colestid] 1 GM) PO SCH ×2 (08:07→21:13)
[2016-11-17] MEDS: Insulin DETEMIR 100 UNIT/ML X5UNITS SQ SCH ×2 (08:08→21:17)
[2016-11-17] MEDS: Insulin LISPRO 300 UNITS/3 ML VIAL SQ SCH ×4 (08:08→21:17)
--- NOTE | 2016-11-17 09:00 | Nephrology Progress Note ---
Date of Encounter: 11/17/16 Time of Encounter: 08:58 Subjective Principal diagnosis: ESRD Interval history: Patient seen and examined. Very lethargic, able to get her to open her eyes briefly and nod head to questions. Review of MARS shows recent dose of Percocet given. Objective - Vital Signs Vital signs: Vital Signs Temp Pulse Resp BP Pulse Ox 11/17/16 08:16 78 11/17/16 07:57 97.7 F 86 16 118/72 97 11/17/16 05:30 98.4 F 81 18 107/83 98 11/17/16 05:10 83 18 98 11/17/16 04:20 20 94 L 11/16/16 23:32 98.2 F 84 18 139/65 97 11/16/16 22:25 20 96 11/16/16 20:28 98.2 F 83 16 140/71 95 11/16/16 16:13 16 129/73 94 L 11/16/16 15:59 98.6 F 81 16 129/73 95 11/16/16 14:45 78 94/70 95 11/16/16 13:40 98.5 F 88 16 94/70 95 11/16/16 12:55 98 F 20 125/61 11/16/16 12:45 131/65 11/16/16 12:30 125/71 11/16/16 12:15 119/67 11/16/16 12:00 129/65 11/16/16 11:45 130/63 11/16/16 11:30 98/53 11/16/16 11:15 109/67 11/16/16 11:00 99/56 11/16/16 10:45 115/69 11/16/16 10:30 108/73 11/16/16 10:15 137/61 11/16/16 10:00 128/53 11/16/16 09:45 97 F L 22 109/56 11/16/16 09:18 16 133/73 95 Intake and Output 11/16/16 11/17/16 11/17/16 23:59 07:59 15:59 Intake Total 320 / 320 100 / 100 Balance 320 / 320 100 / 100 Intake: IV Fluids 100 / 100 100 / 100 Rocephin 1,000 MG In 100 / 100 100 / 100 Dextrose 5% (Minibag+) 100 ML 100 ML @ 200 mls/ hr IVPB Q12HR [facility] Rx#: [id number] Oral 220 / 220 Other: Meal Dinner Percent of Meal Consumed 20% Weight 134.8 kg Blood Glucose* 223 236 Patient Weight 11/17/16 23:59 Weight 134.8 kg - General Appearance General appearance: Present: obese EENT: Present: ATNC Neck: Present: supple Respiratory: Present: clear (decreased throughout) Cardiology: Present: edema, normal S1, normal S2 Dialysis Vascular Access: Arteriovenous Graft Gastrointestinal: Present: no guarding, obese Integumentary: Present: warm and dry Psychiatric: Present: cooperative (very lethargic) - Lab 11/17/16 04:51 11/17/16 04:51 Most recent lab results Calcium 9.4 mg/dL (8.6-10.8) 11/17/16 04:51 Phosphorus 4.0 mg/dL (2.3-4.7) 11/16/16 04:10 Magnesium 1.8 mg/dL (1.6-2.6) 11/15/16 06:43 Consult Discharge Plan - Plan Referrals: Tristen Quintana MD [Primary Care Provider] - 11/23/16 4:00 pm
[2016-11-17 10:21] LABS: ABG Base Excess 1.7 mEq/L (-2.0 to 3.0); ABG HCO3 28.9 mEQ/L (21-27); ABG Oxygen Saturation 95 % (95-98); ABG PCO2 56 mmHg (35-45); ABG PH 7.32 pH Units (7.32-7.45); ABG PO2 82 mmHg (85-104); ABG TCO2 30.6 mEq/L (20-26); Blood Gas FiO2 32 %
[2016-11-17] MEDS: Budesonide/Formoterol 160/4.5 MDI IH SCH ×2 (10:40→22:29)
[2016-11-17] MEDS: *HR* OxyCODONE ER (12 HR) 20 MG TABLET PO SCH ×2 (11:54→23:20)
--- NOTE | 2016-11-17 17:26 | Internal Med Progress Note ---
Date of Encounter: 11/17/16 Time of Encounter: 10:00 - Subjective Interval history: Patient is a 61-year-old female admitted for [facility]. Her past medical history is significant for CHF, COPD, CAD, CVA, DVT, diabetes, end-stage renal disease on HD. Patient was seen and examined. She is a sleepy, but can be aroused by verbal stimulation. Oriented 2. In no acute distress. No fever, vital signs stable. We will continue to closely monitor patient to get better glucose control. (1) Hyperosmolar non-ketotic state in patient with type 2 diabetes mellitus Current Visit: Yes Status: Resolved Assessment and plan: Improved blood sugars and serum osmolality. Continue diabetic renal diet. Continue Accu-Chek blood glucose monitoring with basal bolus insulin regimen. Hemoglobin A1c noted to be elevated, suggestive of long-term uncontrolled diabetes. Patient will benefit from placement in extended care facility but she is known to have refused in the past. She will need continuation of home health services at the time of discharge including home physical therapy. (2) Acute metabolic encephalopathy Improved, cont close monitoring. (3) ESRD (end stage renal disease) Current Visit: Yes Status: Chronic Assessment and plan: Nephrology consult and follow-up appreciated. Patient received hemodialysis. Prophylactic anticoagulation changed to heparin and dose of gabapentin decreased due to renal dysfunction. Continue multivitamins and phosphate binders. (4) CAD (coronary artery disease) Current Visit: Yes Status: Chronic Assessment and plan: Continue home meds. Patient noted to have a recent normal stress test and also recently underwent cardiac catheterization with no indication for revascularization/stent placement. Qualifiers: Coronary Disease-Associated Artery/Lesion type: [place] artery [place] vs. transplanted heart: [place] heart Associated angina: without angina Qualified Code(s): I25.10 - Atherosclerotic heart disease of [place] coronary artery without angina pectoris (5) CHF (congestive heart failure) Current Visit: Yes Status: Chronic Assessment and plan: Not noted to be in acute exacerbation. Cont home medications. Qualifiers: Congestive heart failure type: diastolic Congestive heart failure chronicity: acute on chronic Qualified Code(s): I50.33 - Acute on chronic diastolic (congestive) heart failure (6) COPD (chronic obstructive pulmonary disease) Current Visit: Yes Status: Chronic Assessment and plan: Not noted to be in acute exacerbation. She does have chronic hypoxic respiratory failure due to COPD and noted to be on home oxygen. Continue bronchodilators and when necessary supplemental oxygen. Qualifiers: COPD type: emphysema Emphysema type: unspecified Qualified Code(s): J43.9 - Emphysema, unspecified (7) HTN (hypertension) Current Visit: Yes Status: Chronic Stable, continue home medication. Qualifiers: Hypertension type: essential hypertension Qualified Code(s): I10 - Essential (primary) hypertension (8) Morbid (severe) obesity due to excess calories Current Visit: Yes Status: Chronic - Constitutional Vitals: Temp Pulse Resp BP Pulse Ox 98.8 F 94 13 133/65 100 11/17/16 14:51 11/17/16 14:51 11/17/16 16:18 11/17/16 16:18 11/17/16 16:18 General appearance: Present: A&O X 2, morbidly obese, answers questions appropriately - Head Head exam: Present: atraumatic, normocephalic - Eye Eye exam: Present: PERRL, conjuntiva pink, sclera anicteric Pupils: Present: PERRL - Neck Neck exam general surgery: Present: supple, trachea midline. Absent: lymphadenopathy - Respiratory Respiratory exam: Present: CTAB. Absent: accessory muscle use, rales, rhonchi, wheezes - Cardiovascular Cardiovascular exam: Present: RRR, +S1, +S2. Absent: diastolic murmur, gallop, rubs, systolic murmur - GI/Abdominal GI/Abdominal exam: Present: normal bowel sounds, soft, no peritoneal signs. Absent: distended, tenderness - Extremities Exam Extremities exam: Present: warm, radial pulses palpable and symetrical. Absent : calf tenderness, cyanotic, pedal edema - Neurological Exam Neurological exam: Present: CN II-XII intact, oriented X3, no focal deficits. Absent: pronater drift, facial droop, speech deficit - Skin Skin exam: Present: dry, intact Internal Medicine: Result - Labs CBC & Chem 7: 11/17/16 04:51 11/17/16 04:51 Labs: Short CBC 11/17/16 Range/Units 04:51 WBC 9.9 (4.3-11.1) K/mcL Hgb 10.5 L (11.5-15.4) g/dL Hct 34.0 L (35.3-44.9) % Plt Count 207 (140-400) K/mcL Neutrophils # 6.5 (1.6-8.9) K/mcL BMP 11/17/16 04:51 Sodium 133 L Potassium 4.4 Chloride 96 L Carbon Dioxide 25 BUN 21 H D Creatinine 2.91 H Glucose 241 H Calcium 9.4 - ABG Interpretation ABG results: ABG ABG pH 7.32 pH Units (7.32-7.45) 11/17/16 10:12 ABG pCO2 56 mmHg (35-45) H 11/17/16 10:12 ABG pO2 82 mmHg (85-104) L 11/17/16 10:12 ABG O2 Saturation 95 % (95-98) 11/17/16 10:12 PT/INR, D-dimer PT 11.7 Seconds (9.4-12.1) 11/14/16 18:15 Consult Discharge Plan - Plan Referrals: Tristen Quintana MD [Primary Care Provider] - 11/23/16 4:00 pm
[2016-11-17 20:58] LABS: Amphetamines NEGATIVE ng/mL (Cutoff 30); Barbiturates NEGATIVE ng/mL (Cutoff 75); Benzodiazepines NEGATIVE ng/mL (Cutoff 75); Cocaine NEGATIVE ng/mL (Cutoff 30); Methadone NEGATIVE ng/mL (Cutoff 40); Methamphetamines NEGATIVE ng/mL (Cutoff 30); Opiates NEGATIVE ng/mL (Cutoff 30); Phencyclidine NEGATIVE ng/mL (Cutoff 15)
[2016-11-17] MEDS: ARIPiprazole 10 MG TABLET PO SCH (21:12)
[2016-11-18] MEDS: Albuterol Neb 0.63 MG/3 ML VIAL IH SCH ×4 (04:29→21:46)
[2016-11-18 05:12] LABS: Calcium 9.6 mg/dL (8.6-10.8); Potassium 4.6 mEq/L (3.5-4.5)
[2016-11-18 05:14] LABS: Eosinophils % 3.6 %; Hematocrit 31.4 % (35.3-44.9); Hemoglobin 9.6 g/dL (11.5-15.4); Immature Granulocytes % 1.1 % (0-4); Lymphocytes % 16.1 %; Mean Corpuscular HGB Conc 30.6 g/dL (31.6-35.5); Mean Corpuscular Hemoglobin 26.4 pg (28.0-33.3); Mean Corpuscular Volume 86.3 fL (83.0-100.0); Mean Platelet Volume 10.2 fL (9.4-12.4); Monocytes % 8.1 %; Platelet Count 183 K/mcL (140-400); Red Blood Count 3.64 M/mcL (3.82-4.97); Red Cell Distribution Width 18.3 % (11.5-14.5); Segmented Neutrophils % 70.5 %
[2016-11-18 05:15] LABS: Basophils # 0.1 K/mcL (0.0-0.2); Basophils % 0.6 %; Eosinophils # 0.4 K/mcL (0.0-0.6); Lymphocytes # 1.7 K/mcL (0.6-4.6); Monocytes # 0.9 K/mcL (0.0-1.3); Neutrophils # 7.5 K/mcL (1.6-8.9)
[2016-11-18] MEDS ORDERED: 0.9 % Sodium Chloride 250 ML IV PRN (08:15)
[2016-11-18] MEDS: metOLazone 2.5 MG TABLET PO SCH (08:57)
[2016-11-18] MEDS: Gabapentin 100 MG CAPSULE PO SCH ×3 (08:57→20:59)
[2016-11-18] MEDS: amLODIPine 5 MG TABLET PO SCH (08:57)
[2016-11-18] MEDS: Furosemide 40 MG TABLET PO SCH ×2 (08:57→20:57)
[2016-11-18] MEDS: Sennosides 8.6 MG TABLET PO SCH ×2 (08:58→20:58)
[2016-11-18] MEDS: Calcium Acetate 667 MG CAPSULE PO SCH ×3 (08:58→16:52)
[2016-11-18] MEDS: *HR* Heparin 5,000 UNIT/ML VIAL SQ SCH ×2 (08:58→18:05)
[2016-11-18] MEDS: Insulin DETEMIR 100 UNIT/ML X5UNITS SQ SCH ×2 (08:59→20:58)
[2016-11-18] MEDS: (Colestipol Hcl [Colestid] 1 GM) PO SCH ×2 (09:00→20:59)
[2016-11-18] MEDS: Insulin LISPRO 300 UNITS/3 ML VIAL SQ SCH ×4 (09:01→20:59)
[2016-11-18] MEDS: hydrALAZINE 25 MG TABLET PO SCH ×2 (09:01→20:57)
[2016-11-18] MEDS: Budesonide/Formoterol 160/4.5 MDI IH SCH ×2 (10:28→21:46)
--- NOTE | 2016-11-18 12:45 | Nephrology Progress Note ---
Date of Encounter: 11/18/16 Time of Encounter: 10:10 - Assessment and Plan (1) ESRD (end stage renal disease) Current Visit: Yes Status: Chronic Dialysis Note: HD today. She has a LUE AVG with adequate access pressures and Qb and Qd when I saw her. Next HD is planned for Wednesday, if she were still in the hospital. (2) Anemia Current Visit: No Status: Chronic Goal Hgb is 10-11 Qualifiers: Qualified Code(s): N18.9 - Chronic kidney disease, unspecified; D63.1 - Anemia in chronic kidney disease (3) HTN (hypertension) Current Visit: Yes Status: Chronic Doing well. Qualifiers: Qualified Code(s): I10 - Essential (primary) hypertension (4) Altered mental status Current Visit: Yes Status: Acute As per primary. Improving. Qualifiers: Qualified Code(s): R41.82 - Altered mental status, unspecified (5) Cellulitis of left lower extremity Current Visit: Yes Status: Acute (6) Cellulitis of right lower extremity Current Visit: Yes Status: Acute As per primary. (7) Hyperglycemia Current Visit: Yes Status: Acute As per primary. Subjective Principal diagnosis: ESRD Interval history: The pt was seen/examined while on HD earlier today. She did not affirm N/V/D. Objective - Vital Signs Vital signs: Vital Signs Temp Pulse Resp BP Pulse Ox 11/18/16 10:20 136/65 11/18/16 10:05 136/65 11/18/16 09:50 18 133/69 11/18/16 08:59 84 18 133/69 94 L 11/18/16 07:29 98.4 F 84 18 133/69 94 L 11/18/16 05:08 83 16 100 11/18/16 04:30 16 100 11/18/16 03:22 98.7 F 84 18 119/49 96 11/18/16 01:25 136/68 95 11/17/16 23:03 98.6 F 87 13 159/75 100 11/17/16 22:30 21 100 11/17/16 21:03 87 10 100 11/17/16 20:19 98.7 F 85 10 155/83 100 11/17/16 18:00 89 12 141/58 100 11/17/16 17:00 88 12 133/57 11/17/16 16:18 13 133/65 100 11/17/16 14:51 98.8 F 94 12 131/75 91 L Intake and Output 11/17/16 11/18/16 11/18/16 23:59 07:59 15:59 Intake Total 550 / 550 100 / 100 960 / 960 Output Total 0 / 0 Balance 550 / 550 100 / 100 960 / 960 Intake: IV Fluids 100 / 100 Rocephin 1,000 MG In 100 / 100 Dextrose 5% (Minibag+) 100 ML 100 ML @ 200 mls/ hr IVPB Q12HR [facility] Rx#: [id number] Oral 450 / 450 100 / 100 360 / 360 Intake, Rinseback and 600 / 600 Flushes Output: Urine 0 / 0 Other: Meal Breakfast Percent of Meal Consumed 100% Weight 133.8 kg 133.8 kg Blood Glucose* 151 176 Hemodialysis Net Fluid 450 Removed (mL) Patient Weight 11/18/16 23:59 Weight 133.8 kg - General Appearance General appearance: Present: well-developed, well-nourished, appears started age , obese EENT: Present: ATNC, PERRL, mucous membranes moist Neck: Present: supple Respiratory: Present: clear Cardiology: Present: edema, regular rate, normal S1, normal S2 Gastrointestinal: Present: normoactive bowel sounds, no tenderness, no guarding Integumentary: Present: warm and dry, chronic venous stasis Neurologic: Present: no focal deficit, no asterixis Musculoskeletal: Present: no deformities, no clubbing Psychiatric: Present: mood/affect appropriate, cooperative - Lab 11/18/16 04:30 11/18/16 04:30 Most recent lab results ABG pH 7.32 pH Units (7.32-7.45) 11/17/16 10:12 ABG pCO2 56 mmHg (35-45) H 11/17/16 10:12 ABG pO2 82 mmHg (85-104) L 11/17/16 10:12 ABG HCO3 28.9 mEQ/L (21-27) H 11/17/16 10:12 ABG O2 Saturation 95 % (95-98) 11/17/16 10:12 Calcium 9.6 mg/dL (8.6-10.8) 11/18/16 04:30 Phosphorus 4.0 mg/dL (2.3-4.7) 11/16/16 04:10 Magnesium 1.8 mg/dL (1.6-2.6) 11/15/16 06:43 Consult Discharge Plan - Plan Referrals: Tristen Quintana MD [Primary Care Provider] - 11/23/16 4:00 pm
[2016-11-18] MEDS: *HR* OxyCODONE ER (12 HR) 20 MG TABLET PO SCH (14:13)
--- NOTE | 2016-11-18 18:57 | Internal Med Progress Note ---
Date of Encounter: 11/18/16 Time of Encounter: 15:00 - Subjective Interval history: Patient is a 61-year-old female admitted for [facility]. Her past medical history is significant for CHF, COPD, CAD, CVA, DVT, diabetes, end-stage renal disease on HD. Patient was seen and examined. She is more awake alert today, Oriented 3. In no acute distress. No fever, vital signs stable. Sugar level well controlled. Had HD today. We will continue to closely monitor patient. Discharge plan, need safe placement, SW is working on case. (1) Hyperosmolar non-ketotic state in patient with type 2 diabetes mellitus Current Visit: Yes Status: Resolved Assessment and plan: Improved blood sugars and serum osmolality. Continue diabetic renal diet. Continue Accu-Chek blood glucose monitoring with basal bolus insulin regimen. Hemoglobin A1c noted to be elevated, suggestive of long-term uncontrolled diabetes. Patient will benefit from placement in extended care facility but she is known to have refused in the past. She will need continuation of home health services at the time of discharge including home physical therapy. (2) Acute metabolic encephalopathy Improved, cont close monitoring. (3) ESRD (end stage renal disease) Current Visit: Yes Status: Chronic Assessment and plan: Nephrology consult and follow-up appreciated. Patient received hemodialysis. Prophylactic anticoagulation changed to heparin and dose of gabapentin decreased due to renal dysfunction. Continue multivitamins and phosphate binders. (4) CAD (coronary artery disease) Current Visit: Yes Status: Chronic Assessment and plan: Continue home meds. Patient noted to have a recent normal stress test and also recently underwent cardiac catheterization with no indication for revascularization/stent placement. Qualifiers: Coronary Disease-Associated Artery/Lesion type: [place] artery [place] vs. transplanted heart: [place] heart Associated angina: without angina Qualified Code(s): I25.10 - Atherosclerotic heart disease of [place] coronary artery without angina pectoris (5) CHF (congestive heart failure) Current Visit: Yes Status: Chronic Assessment and plan: Not noted to be in acute exacerbation. Cont home medications. Qualifiers: Congestive heart failure type: diastolic Congestive heart failure chronicity: acute on chronic Qualified Code(s): I50.33 - Acute on chronic diastolic (congestive) heart failure (6) COPD (chronic obstructive pulmonary disease) Current Visit: Yes Status: Chronic Assessment and plan: Not noted to be in acute exacerbation. She does have chronic hypoxic respiratory failure due to COPD and noted to be on home oxygen. Continue bronchodilators and when necessary supplemental oxygen. Qualifiers: COPD type: emphysema Emphysema type: unspecified Qualified Code(s): J43.9 - Emphysema, unspecified (7) HTN (hypertension) Current Visit: Yes Status: Chronic Stable, continue home medication. Qualifiers: Hypertension type: essential hypertension Qualified Code(s): I10 - Essential (primary) hypertension (8) Morbid (severe) obesity due to excess calories Current Visit: Yes Status: Chronic - Constitutional Vitals: Temp Pulse Resp BP Pulse Ox 98.9 F 80 18 148/58 93 L 11/18/16 16:36 11/18/16 16:36 11/18/16 16:36 11/18/16 16:36 11/18/16 16:36 General appearance: Present: A&O X 2, morbidly obese, answers questions appropriately Internal Medicine: Result - Labs CBC & Chem 7: 11/18/16 04:30 11/18/16 04:30 Labs: Short CBC 11/18/16 Range/Units 04:30 WBC 10.7 (4.3-11.1) K/mcL Hgb 9.6 L (11.5-15.4) g/dL Hct 31.4 L (35.3-44.9) % Plt Count 183 (140-400) K/mcL Neutrophils # 7.5 (1.6-8.9) K/mcL BMP 11/18/16 04:30 Sodium 132 L Potassium 4.6 H Chloride 96 L Carbon Dioxide 26 BUN 32 H D Creatinine 4.10 H Glucose 178 H Calcium 9.6 - ABG Interpretation ABG results: ABG ABG pH 7.32 pH Units (7.32-7.45) 11/17/16 10:12 ABG pCO2 56 mmHg (35-45) H 11/17/16 10:12 ABG pO2 82 mmHg (85-104) L 11/17/16 10:12 ABG O2 Saturation 95 % (95-98) 11/17/16 10:12 PT/INR, D-dimer PT 11.7 Seconds (9.4-12.1) 11/14/16 18:15 Consult Discharge Plan - Plan Referrals: Tristen Quintana MD [Primary Care Provider] - 11/23/16 4:00 pm
[2016-11-18] MEDS: ARIPiprazole 10 MG TABLET PO SCH (20:58)
[2016-11-19] MEDS: *HR* OxyCODONE ER (12 HR) 20 MG TABLET PO SCH (00:03)
[2016-11-19 04:10] LABS: Calcium 9.4 mg/dL (8.6-10.8)
[2016-11-19 04:13] LABS: Basophils # 0.1 K/mcL (0.0-0.2); Basophils % 0.7 %; Eosinophils # 0.3 K/mcL (0.0-0.6); Eosinophils % 3.6 %; Hematocrit 30.4 % (35.3-44.9); Hemoglobin 9.1 g/dL (11.5-15.4); Immature Granulocytes % 1.8 % (0-4); Lymphocytes # 1.8 K/mcL (0.6-4.6); Lymphocytes % 20.2 %; Mean Corpuscular HGB Conc 29.9 g/dL (31.6-35.5); Mean Corpuscular Hemoglobin 25.9 pg (28.0-33.3); Mean Corpuscular Volume 86.4 fL (83.0-100.0); Monocytes # 0.8 K/mcL (0.0-1.3); Monocytes % 8.6 %; Neutrophils # 5.8 K/mcL (1.6-8.9); Platelet Count 189 K/mcL (140-400); Red Blood Count 3.52 M/mcL (3.82-4.97); Red Cell Distribution Width 18.1 % (11.5-14.5); Segmented Neutrophils % 65.1 %
[2016-11-19] MEDS: Albuterol Neb 0.63 MG/3 ML VIAL IH SCH ×2 (04:27→10:24)
[2016-11-19] MEDS ORDERED: Cholecalciferol (D-3) 1,000 UNIT TABLET PO SCH (09:00)
[2016-11-19] MEDS: hydrALAZINE 25 MG TABLET PO SCH (09:38)
[2016-11-19] MEDS: metOLazone 2.5 MG TABLET PO SCH (09:38)
[2016-11-19] MEDS: amLODIPine 5 MG TABLET PO SCH (09:38)
[2016-11-19] MEDS: Sennosides 8.6 MG TABLET PO SCH (09:38)
[2016-11-19] MEDS: Calcium Acetate 667 MG CAPSULE PO SCH ×2 (09:38→11:14)
[2016-11-19] MEDS: Furosemide 40 MG TABLET PO SCH (09:38)
[2016-11-19] MEDS: Insulin DETEMIR 100 UNIT/ML X5UNITS SQ SCH (09:39)
[2016-11-19] MEDS: Gabapentin 100 MG CAPSULE PO SCH ×2 (09:39→14:50)
[2016-11-19] MEDS: Insulin LISPRO 300 UNITS/3 ML VIAL SQ SCH ×2 (09:39→11:15)
[2016-11-19] MEDS: *HR* Heparin 5,000 UNIT/ML VIAL SQ SCH (09:40)
[2016-11-19] MEDS: (Colestipol Hcl [Colestid] 1 GM) PO SCH (09:55)
--- NOTE | 2016-11-19 10:09 | Nephrology Progress Note ---
Date of Encounter: 11/19/16 Time of Encounter: 10:07 - Assessment and Plan (1) ESRD (end stage renal disease) Current Visit: Yes Status: Chronic Patient has agreed to go to rehab temporarily. 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 If accepted, she is to be discharged today and can go to outpatient dialysis tomorrow for her regular HD treatment Continue renal diet and fluid restriction Avoid nephrotoxins if possible (2) Altered mental status Current Visit: Yes Status: Acute Resolved. Caution with pain meds. Qualifiers: Qualified Code(s): R41.82 - Altered mental status, unspecified (3) Generalized weakness Current Visit: No Status: Acute Recommend physical therapy at rehab/prison Subjective Principal diagnosis: ESRD Interval history: Patient seen and examined. Sitting up in chair eating breakfast. Looks much better today; states she is feeling better. Objective - Vital Signs Vital signs: Vital Signs Temp Pulse Resp BP Pulse Ox 11/19/16 07:12 98.2 F 78 14 105/64 96 11/19/16 04:28 18 92 L 11/19/16 04:19 80 16 97 11/19/16 04:13 98.3 F 80 10 129/60 92 L 11/19/16 01:14 98.4 F 78 16 107/54 97 11/19/16 00:31 78 16 97 11/18/16 21:48 18 97 11/18/16 20:33 80 12 96 11/18/16 20:11 98.6 F 78 12 138/57 96 11/18/16 16:36 98.9 F 80 18 148/58 93 L 11/18/16 14:35 86 11/18/16 14:08 99 F 86 18 152/69 95 11/18/16 13:20 99 F 18 152/69 11/18/16 13:05 142/69 11/18/16 12:50 133/61 11/18/16 12:35 152/69 11/18/16 12:20 149/72 11/18/16 12:05 152/69 11/18/16 11:50 122/89 11/18/16 11:35 128/82 11/18/16 11:20 143/82 11/18/16 11:05 94/72 11/18/16 10:50 139/79 11/18/16 10:35 152/69 11/18/16 10:20 136/65 Intake and Output 11/18/16 11/19/16 11/19/16 23:59 07:59 15:59 Intake Total 100 / 100 Output Total 100 / 100 Balance 0 / 0 Intake: IV Fluids 100 / 100 Rocephin 1,000 MG In 100 / 100 Dextrose 5% (Minibag+) 100 ML 100 ML @ 200 mls/ hr IVPB Q12HR [facility] Rx#: [id number] Oral 0 / 0 Output: Urine 100 / 100 Other: # Urine Diapers 1 Weight 133.3 kg Blood Glucose* 216 199 Patient Weight 11/19/16 23:59 Weight 133.3 kg - General Appearance General appearance: Present: well-developed, well-nourished, obese EENT: Present: ATNC, mucous membranes moist, hearing intact, vision intact Neck: Present: supple Respiratory: Present: clear Cardiology: Present: edema, normal S1, normal S2 Gastrointestinal: Present: no guarding, obese Integumentary: Present: warm and dry Neurologic: Present: alert and oriented x3 Psychiatric: Present: mood/affect appropriate, cooperative - Lab 11/19/16 03:50 11/19/16 03:50 Most recent lab results ABG pH 7.32 pH Units (7.32-7.45) 11/17/16 10:12 ABG pCO2 56 mmHg (35-45) H 11/17/16 10:12 ABG pO2 82 mmHg (85-104) L 11/17/16 10:12 ABG HCO3 28.9 mEQ/L (21-27) H 11/17/16 10:12 ABG O2 Saturation 95 % (95-98) 11/17/16 10:12 Calcium 9.4 mg/dL (8.6-10.8) 11/19/16 03:50 Phosphorus 4.0 mg/dL (2.3-4.7) 11/16/16 04:10 Magnesium 1.8 mg/dL (1.6-2.6) 11/15/16 06:43 Consult Discharge Plan - Plan Referrals: Tristen Quintana MD [Primary Care Provider] - 11/23/16 4:00 pm
[2016-11-19] MEDS: Budesonide/Formoterol 160/4.5 MDI IH SCH (10:26)
[2016-11-19 11:11] VITALS: BP 99/39
--- NOTE | 2016-11-19 12:38 | Discharge Summary ---
Date of Encounter: 11/19/16 Time of Encounter: 11:00 - Discharge Medications Prescriptions: OxyCODONE/APAP 10/325 [Percocet 10/325 MG] 1 each PO Q6H PRN #10 tablet PRN Reason: Breakthrough Pain Oxycodone HCl [Oxycontin] 30 mg PO Q12H #10 tab.er.12h Home Medications: Amitriptyline [Elavil] 100 mg PO HS 05/11/15 [History] Clopidogrel [Plavix] 75 mg PO DAILY 05/11/15 [History] Ergocalciferol (VITAMIN D2) [Vitamin D2 (50,000 UNIT)] 50,000 units PO TH #0 [History] Omeprazole [PriLOSEC] 20 mg PO BID 05/11/15 [History] Rosuvastatin [Crestor] 40 mg PO HS 05/11/15 [History] Sevelamer [Renvela] 800 mg PO TIDWM 05/11/15 [History] Albuterol Neb [AccuNeb] 3 ml IH Q6H PRN 06/12/15 [History] Aripiprazole [Abilify] 10 mg PO HS 06/12/15 [History] Colestipol HCl [Colestid] 1 gm PO BID 06/12/15 [History] Sennosides [Senna] 8.6 mg PO BID 06/12/15 [History] Carvedilol 12.5 mg PO BID 10/28/15 [History] HydrALAZINE 50 mg PO BID 12/30/15 [History] Amlodipine [Norvasc] 5 mg PO DAILY 06/09/16 [History] Insulin Glargine,Hum.rec.anlog [Lantus Solostar] 60 unit SQ BID 06/09/16 [ History] Budesonide/Formoterol 160/4.5 [Symbicort 160/4.5] 2 puff IH BIDR inhaler [Rx] Gabapentin [Neurontin] 200 mg PO TID 30 Days 06/18/16 [Rx] Calcium Acetate [Phos-LO] 667 mg PO TIDWM 09/06/16 [History] Furosemide [Lasix] 80 mg PO BID 09/06/16 [History] Insulin LISPRO [Humalog] 20 unit SQ TIDWM 09/06/16 [History] Metolazone [Zaroxolyn] 2.5 mg PO MOWEFR 09/06/16 [History] Oxygen 1 l .ROUTE HS PRN 09/06/16 [History] Pnv95/Ferrous Fumarate/FA [ Caplet] 1 tab PO DAILY 11/15/16 [History] Tiotropium [place] [Spiriva] 18 mcg IH DAILY 11/15/16 [History] OxyCODONE/APAP 10/325 [Percocet 10/325 MG] 1 each PO Q6H PRN #10 tablet [Rx] Oxycodone HCl [Oxycontin] 30 mg PO Q12H #10 tab.er.12h 11/19/16 [Rx] Allergies/Adverse Reactions: Allergies No Known Allergies Allergy (Verified 10/29/16 08:38) - Notes to Outpatient Provider Patient is on high-dose pain medication on her home medication list, she had respiratory depression early this morning and has to be treated with Narcan. Her altered mental status is also possibly due to high-dose pain medication use. We have decreased her home regular oxycodone ER from 60 mg twice a day to 30 milligrams twice a day. Further tapering down can be done in group home if necessary. Please also closely monitor of opioid overdose. Date of admission: 11/15/16 11:52 Primary care physician: Tristen Quintana MD Consults: 11/15/16 12:07 Consult to Nephrology [CONS] Routine Consulting Provider: Kidney Olivia/MARCO/SWAPNA/MILLIE Reason for Consult: ESRD, for HD needs Call Completed: Yes Consult to Occupational Therapy [CONS] Routine Comment: Evaluate, develop and implement POC Consult to Physical Therapy [CONS] Routine Comment: Evaluate, develop and implement POC 11/16/16 08:15 Consult to Dialysis [CONS] ONCE 11/16/16 16:23 Consult to Dry Mill Operator [CONS] Routine Reason for SW Consult: Possible ecf placement 11/18/16 08:15 Consult to Dialysis [CONS] ONCE 11/19/16 08:15 Consult to Dialysis [CONS] ONCE Discharging clinician: Yuniel Menjivar Anticipated date of discharge: 11/19/16 - Patient Status Disposition: Transfer SNF Condition: Good Functional capacity at discharge: uses cane/walker Overall status at discharge: patient is back to baseline - Discharge Instructions Follow Up With: Tristen Quintana MD [Primary Care Provider] - 11/23/16 4:00 pm - Diet and Activity Activity: as per physical therapy Diet: diabetic diet Interval History: Ms. Riley is a 61 year old female who presents to the hospital with a three- day history of nausea, vomiting, and diarrhea. She states that for the past three days, she could not keep her train of thought. She felt lethargic, and kept saying "goofy things" according to her mother, friend, and neighbor. She admits headache, dizziness, dry mouth, and bloody stool. Also admits burning on urination. (1) Hyperosmolar non-ketotic state in patient with type 2 diabetes mellitus Current Visit: Yes Status: Resolved Assessment and plan: Improved blood sugars and serum osmolality. Continue diabetic renal diet. Continue Accu-Chek blood glucose monitoring with basal bolus insulin regimen. Hemoglobin A1c noted to be elevated, suggestive of long-term uncontrolled diabetes. Patient will benefit from placement in extended care facility but she is known to have refused in the past. She will need continuation of home health services at the time of discharge including home physical therapy. (2) Acute metabolic encephalopathy Improved, cont close monitoring. (3) ESRD (end stage renal disease) Current Visit: Yes Status: Chronic Assessment and plan: Nephrology consult and follow-up appreciated. Patient received hemodialysis. Prophylactic anticoagulation changed to heparin and dose of gabapentin decreased due to renal dysfunction. Continue multivitamins and phosphate binders. (4) CAD (coronary artery disease) Current Visit: Yes Status: Chronic Assessment and plan: Continue home meds. Patient noted to have a recent normal stress test and also recently underwent cardiac catheterization with no indication for revascularization/stent placement. Qualifiers: Coronary Disease-Associated Artery/Lesion type: [place] artery [place] vs. transplanted heart: [place] heart Associated angina: without angina Qualified Code(s): I25.10 - Atherosclerotic heart disease of [place] coronary artery without angina pectoris (5) CHF (congestive heart failure) Current Visit: Yes Status: Chronic Assessment and plan: Not noted to be in acute exacerbation. Cont home medications. Qualifiers: Congestive heart failure type: diastolic Congestive heart failure chronicity: acute on chronic Qualified Code(s): I50.33 - Acute on chronic diastolic (congestive) heart failure (6) COPD (chronic obstructive pulmonary disease) Current Visit: Yes Status: Chronic Assessment and plan: Not noted to be in acute exacerbation. She does have chronic hypoxic respiratory failure due to COPD and noted to be on home oxygen. Continue bronchodilators and when necessary supplemental oxygen. Qualifiers: COPD type: emphysema Emphysema type: unspecified Qualified Code(s): J43.9 - Emphysema, unspecified (7) HTN (hypertension) Current Visit: Yes Status: Chronic Stable, continue home medication. Qualifiers: Hypertension type: essential hypertension Qualified Code(s): I10 - Essential (primary) hypertension (8) Morbid (severe) obesity due to excess calories Current Visit: Yes Status: Chronic Hospital course: Ms. Riley is a 61 year old female admitted as diabetes HHS with altered mental status. She was treated with insulin drip and IV fluid. After treatment, her condition has improved. Patient also has end-stage renal disease on hemodialysis, nephrology consult called and patient continue her dialysis in hospital. After treatment her condition has improved. Her mental status has back to her baseline. We will discharge patient to [facility] for further treatment. I saw and examined the patient today, she is awake alert, oriented 3. Vitals are stable. Denies chest pain, shortness of breath, nausea, vomiting. Patient is on high-dose pain medication on her home medication list, she had respiratory depression early this morning and has to be treated with Narcan. Her altered mental status is also possibly due to high-dose pain medication use. We will decrease her regular oxycodone ER from 60 mg twice a day to 30 milligrams twice a day. Further tapering down can be done in group home if necessary. Patient is ready to discharge and continue treatment in group home. - Time Spent with Patient Total time spent providing and/or coordinating discharge services: 40 minutes Greater than 30 minutes - Constitutional Vitals: Temp Pulse Resp BP Pulse Ox 98.1 F 80 16 99/39 100 11/19/16 11:09 11/19/16 11:17 11/19/16 11:35 11/19/16 11:11/19/16 11:35 General appearance: Present: A&O X 3, morbidly obese, answers questions appropriately - Head Head exam: Present: atraumatic, normocephalic - Eye Eye exam: Present: PERRL, conjuntiva pink, sclera anicteric Pupils: Present: PERRL - Neck Neck exam general surgery: Present: supple, trachea midline. Absent: lymphadenopathy - Respiratory Respiratory exam: Present: CTAB. Absent: accessory muscle use, rales, rhonchi, wheezes - Cardiovascular Cardiovascular exam: Present: RRR, +S1, +S2. Absent: diastolic murmur, gallop, rubs, systolic murmur - GI/Abdominal GI/Abdominal exam: Present: normal bowel sounds, soft, no peritoneal signs. Absent: distended, tenderness - Extremities Exam Extremities exam: Present: warm, radial pulses palpable and symetrical. Absent : calf tenderness, cyanotic, pedal edema - Neurological Exam Neurological exam: Present: CN II-XII intact, oriented X3, no focal deficits. Absent: pronater drift, facial droop, speech deficit - Skin Skin exam: Present: dry, intact
--- NOTE | 2016-11-19 12:56 | Physician Discharge Referral ---
ExtendedCare Referral Info Transfer To: [facility] Provider in Charge after Transfer: Other Prognosis: Fair Aware of Diagnosis: Patient Aware of Prognosis: Patient - Transfer Medications Prescriptions: OxyCODONE/APAP 10/325 [Percocet 10/325 MG] 1 each PO Q6H PRN #10 tablet PRN Reason: Breakthrough Pain Oxycodone HCl [Oxycontin] 30 mg PO Q12H #10 tab.er.12h Home Medications: Amitriptyline [Elavil] 100 mg PO HS 05/11/15 [History] Clopidogrel [Plavix] 75 mg PO DAILY 05/11/15 [History] Ergocalciferol (VITAMIN D2) [Vitamin D2 (50,000 UNIT)] 50,000 units PO TH #0 [History] Omeprazole [PriLOSEC] 20 mg PO BID 05/11/15 [History] Rosuvastatin [Crestor] 40 mg PO HS 05/11/15 [History] Sevelamer [Renvela] 800 mg PO TIDWM 05/11/15 [History] Albuterol Neb [AccuNeb] 3 ml IH Q6H PRN 06/12/15 [History] Aripiprazole [Abilify] 10 mg PO HS 06/12/15 [History] Colestipol HCl [Colestid] 1 gm PO BID 06/12/15 [History] Sennosides [Senna] 8.6 mg PO BID 06/12/15 [History] Carvedilol 12.5 mg PO BID 10/28/15 [History] HydrALAZINE 50 mg PO BID 12/30/15 [History] Amlodipine [Norvasc] 5 mg PO DAILY 06/09/16 [History] Insulin Glargine,Hum.rec.anlog [Lantus Solostar] 60 unit SQ BID 06/09/16 [ History] Budesonide/Formoterol 160/4.5 [Symbicort 160/4.5] 2 puff IH BIDR inhaler [Rx] Gabapentin [Neurontin] 200 mg PO TID 30 Days 06/18/16 [Rx] Calcium Acetate [Phos-LO] 667 mg PO TIDWM 09/06/16 [History] Furosemide [Lasix] 80 mg PO BID 09/06/16 [History] Insulin LISPRO [Humalog] 20 unit SQ TIDWM 09/06/16 [History] Metolazone [Zaroxolyn] 2.5 mg PO MOWEFR 09/06/16 [History] Oxygen 1 l .ROUTE HS PRN 09/06/16 [History] Pnv95/Ferrous Fumarate/FA [ Caplet] 1 tab PO DAILY 11/15/16 [History] Tiotropium [place] [Spiriva] 18 mcg IH DAILY 11/15/16 [History] OxyCODONE/APAP 10/325 [Percocet 10/325 MG] 1 each PO Q6H PRN #10 tablet [Rx] Oxycodone HCl [Oxycontin] 30 mg PO Q12H #10 tab.er.12h 11/19/16 [Rx] Allergies/Adverse Reactions: Allergies No Known Allergies Allergy (Verified 10/29/16 08:38) - Respiratory Orders Smoking Cessation: Smoking cessation has been advised. For more information, call the [place] Tobacco Quit Line at 1-177-REQF-NOW. - Advance Directives Living Will: Yes Code Status: DNR-Arrest/Don't Intubate - Rehabiliation Orders Rehab Potential: Fair Rehab Orders: Evaluation for Physical Therapy, Evaluation for Occupational Therapy - Diet Orders No Concentrated Sweets (Diabetic diet) CERTIFICATION: I certify that the transfer of the above named patient to an Extended Care Facility is necessary for the continuing treatment of the diagnosis listed. The above information is true and accurate reflection of patient's current condition. Confidential - Redisclosure prohibited without a patient's written consent.
[2016-11-19] MEDS ORDERED: OXYCODONE PO SCH (18:00)
[2016-11-19] MEDS ORDERED: *HR* OxyCODONE ER (12 HR) 20 MG TABLET PO SCH (18:11)
[2016-11-19 20:23] LABS: Hydrocodone Confirmation <2 ng/mL
[2016-11-20 07:43] LABS: 6_Acetylmorphine Confirmation <2 ng/mL; Oxymorphone Confirmation <2 ng/mL
== END 2016-11-19 15:15 | DRG 640 ==
LOC: EMEROO 17:05 → 2ANU 17:05 → SUATTDRO 21:29 → 2ANU 22:14 → 2NNU 11-15 00:18 → SUATTDRO 11-15 11:52
PROVIDERS: ADMIT Internal Medicine; ATTEND Internal Medicine

== ENCOUNTER 2016-12-28 18:51 | Observation (INO) ==
[2016-12-28] MEDS ORDERED: Ipratropium/Albuterol Neb 3 ML IH ONE (19:21)
[2016-12-28] MEDS ORDERED: methylPREDNISolone 125 MG/2 ML VIAL IVP ONE (19:21)
[2016-12-28] MEDS ORDERED: Nitroglycerin 0.4 MG TAB.SUBL SL PRN (19:27)
--- NOTE | 2016-12-28 19:31 | Emergency Department Note ---
Disposition Clinical Impression: HCAP (healthcare-associated pneumonia) Disposition: Admitted As Inpatient Condition: Good SOB HPI - General Chief Complaint: ED Shortness of Breath/Dyspnea Stated Complaint: Linus Time Seen by Provider: 12/28/16 19:12 Source: patient, EMS Mode of arrival: EMS Limitations: no limitations Nursing Notes Reviewed: Yes Vital Signs Reviewed: Yes - History of Present Illness 61-year-old female history of CAD, COPD, CHF, diabetes, hyperlipidemia, DVT who presents to the ER with a chief complaint of shortness of breath. Patient reports that she has been sick for the last 2 weeks. States today she started to feel more short of breath at home. She reports that she has had a nonproductive cough. Also felt febrile at home but did not check it. She reports she has also had substernal chest pain since around 4 PM today described as pressure. Patient received 2 nitroglycerin prior to arrival with improvement of her symptoms. Patient reports that she has a history of DVT but no PE. She does have a history of A. fib but reports that she is not on anticoagulation because of a GI bleed while she was on Coumadin. No other complaints. Pt Subjective Complaint: shortness of breath Onset (ago): day(s) Context: recent illness Severity: moderate Consistency/Duration: constant Improves with: nothing Worsens with: nothing Known history of: COPD, congestive heart failure Associated symptoms: Reports: chest pain, fever, cough, wheezing. Denies: sputum production, lower extremity pain Treatment prior to arrival: oxygen, aspirin, nitroglycerin Cough present: No Sputum production: No Sputum Amount: None - Related Data Home oxygen amount: 2 liters Home Medications Medication Instructions Recorded Confirmed Amitriptyline [Elavil] 100 mg PO HS 05/11/15 12/29/16 Clopidogrel [Plavix] 75 mg PO DAILY 05/11/15 12/29/16 Ergocalciferol (VITAMIN D2) 50,000 units PO TH #0 05/11/15 12/29/16 [Vitamin D2 (50,000 UNIT)] Omeprazole [PriLOSEC] 20 mg PO BID 05/11/15 12/29/16 Rosuvastatin [Crestor] 40 mg PO HS 05/11/15 12/29/16 Sevelamer [Renvela] 800 mg PO TIDWM 05/11/15 12/29/16 Albuterol Neb [AccuNeb] 3 ml IH Q6H PRN 06/12/15 12/29/16 Aripiprazole [Abilify] 10 mg PO HS 06/12/15 12/29/16 Colestipol HCl [Colestid] 1 gm PO BID 06/12/15 12/29/16 Sennosides [Senna] 8.6 mg PO BID 06/12/15 12/29/16 Carvedilol 12.5 mg PO BID 10/28/15 12/29/16 HydrALAZINE 50 mg PO BID 12/30/15 12/29/16 Amlodipine [Norvasc] 5 mg PO DAILY 06/09/16 12/29/16 Insulin Glargine,Hum.rec.anlog 60 unit SQ BID 06/09/16 12/29/16 [Lantus Solostar] Calcium Acetate [Phos-LO] 667 mg PO TIDWM 09/06/16 12/29/16 Furosemide [Lasix] 80 mg PO BID 09/06/16 12/29/16 Insulin LISPRO [Humalog] 20 unit SQ TIDWM 09/06/16 12/29/16 Metolazone [Zaroxolyn] 2.5 mg PO MOWEFR 09/06/16 12/29/16 Tiotropium [place] [Spiriva] 1 cap IH DAILY 11/15/16 12/29/16 Albuterol Sulfate [Ventolin Hfa] 2 puff IH Q4H PRN 12/29/16 12/29/16 Ciprofloxacin HCl [Cipro] 250 mg PO BID 12/29/16 12/29/16 Ondansetron ODT [Zofran ODT] 4 mg SL Q8HR PRN 12/29/16 12/29/16 Previous Rx's Medication Instructions Recorded Budesonide/Formoterol 160/4.5 2 puff IH BIDR inhaler 06/18/16 [Symbicort 160/4.5] Gabapentin [Neurontin] 200 mg PO TID 30 Days 06/18/16 OxyCODONE/APAP 10/325 [Percocet 1 each PO Q6H PRN #10 tablet 11/19/16 10/325 MG] Oxycodone HCl [Oxycontin] 30 mg PO Q12H #10 tab.er.12h 11/19/16 Allergies Allergy/AdvReac Type Severity Reaction Status Date / Time No Known Allergies Allergy Verified 12/28/16 19:00 All systems ED: reviewed and negative except as stated. Constitutional: Reports: fever, chills Cardiovascular: Reports: chest pain Respiratory: Reports: cough, dyspnea, wheezes. Denies: sputum production Gastrointestinal: Denies: abdominal pain, nausea, vomiting Past Medical History - Past Medical History Attestation: Yes The following information was validated with the patient. Source: patient Medical history: Reports: arthritis, atrial fibrillation, CHF, COPD, coronary artery disease, CVA, DVT, diabetes, dialysis, fibromyalgia, GERD, hyperlipidemia , hypertension, kidney stones, migraine, myocardial infarction, osteoporosis, peripheral artery disease, renal disease, other Surgical history: Reports: angioplasty/stent, appendectomy, cholecystectomy, coronary bypass (CABG), hysterectomy, knee replacement, other, IVC filter Psychiatric history: Reports: anxiety [employer] history: Reports: other - Social History Smoking Status: Current every day smoker Smokeless Tobacco Status: No Alcohol use: Reports: none Drug use: Reports: none Physical Exam - General Limitations: no limitations General appearance: alert, in no apparent distress - Head Head exam: atraumatic, normocephalic, normal inspection - Eye Eye exam: Present: normal appearance, EOMI - ENT ENT exam: normal exam - Neck Neck exam: Present: normal inspection - Chest Chest inspection: Present: normal inspection, symmetric chest wall rise. Absent : tenderness - Respiratory Respiratory exam: Present: wheezes (Diffuse wheezing on exam. No rhonchi or rales. ) - Cardiovascular Cardiovascular exam: Present: regular rate, normal rhythm, normal heart sounds - Abdominal Exam Abdominal exam: Present: soft, Non-Tender. Absent: tenderness - Extremities Exam Extremities exam: Present: normal inspection, full ROM - Expanded Upper Extremity Exam Shoulder exam: Present: normal inspection, full ROM Arm exam: Present: normal inspection, full ROM Elbow exam: Present: normal inspection, full ROM Forearm/Wrist exam: Present: normal inspection, full ROM Hand exam: Present: normal inspection, full ROM - Expanded Lower Extremity Exam Hip/Pelvis exam: Present: normal inspection, full ROM Upper leg exam: Present: normal inspection, full ROM Knee exam: Present: normal inspection, full ROM Lower leg exam: Present: normal inspection, full ROM, swelling (1+ bilateral lower extremity pitting edema) Ankle exam: Present: normal inspection, full ROM Foot/toe exam: Present: normal inspection, full ROM - Neurological Exam Neurological exam: Present: alert - Psychiatric Psychiatric exam: Present: normal affect, normal mood - Skin Skin exam: Present: warm, dry, intact, normal color Course Course Narrative: Patient seen and examined. Vital signs reviewed. She does have a low-grade fever here of 100.4. We will get an EKG, chest x-ray and labs including troponin and BNP. We will continue to try the nitroglycerin for her pain. We will also order breathing treatments and IV Solu-Medrol. - Reevaluation(s) Reevaluation #1: Patient has poor peripheral access. Reports that she has required PICC lines and central lines in the past. Patient consented for central line placement due to HCAP Vital Signs Temperature 100.4 F H 12/28/16 18:55 Pulse Rate 93 12/28/16 18:55 Respiratory Rate 18 12/28/16 18:55 Blood Pressure 147/69 12/28/16 18:55 O2 Sat by Pulse Oximetry 97 12/28/16 18:55 Temperature 98.7 F 12/30/16 03:14 Pulse Rate 90 12/30/16 03:14 Respiratory Rate 16 12/30/16 03:14 Blood Pressure 107/71 12/30/16 03:14 O2 Sat by Pulse Oximetry 93 L 12/30/16 03:14 Oxygen Delivery Oxygen Delivery Nasal Cannula Procedures - Central Line Placement Right IJ Central Line Inserted*: Yes Central Line Insertion: elective Consent Obtained: written consent Procedural Pause: verify patient name and date of , timeout performed per policy, assemble equipment and verify supplies, perform hand hygiene Patient Placed on Monitor/Pulse Ox: Yes During the Procedure: clinician is wearing sterile gloves, cap, mask,& gown during insertion, sterile field and sterile technique are maintained, patient's face is covered with drape or mask and wearing a cap, everyone in room is wearing a mask Central Line Prep: Chlorhexidine scrub Prep the Procedure Site: apply chloraprep to the skin using a back and forth scrubbing motion, apply chloraprep for 30 seconds (upper body), 1-2 min ( femoral sites), allow prep to dry, drape the patient with a full body drape Local Anesthetic: lidocaine 1% Amount of anesthesia used (mL): 4 Ultrasound Used for Placement: Yes Central Line Lumen Inserted: triple Post Procedure: sutured in place, good blood return, all ports aspirated, flushed, capped, sterile dressing applied, guide wire removed and visualized Patient Tolerated Procedure: well Complications: none Shortness of Breath/Dyspnea - MDM Narrative Medical decision making narrative: 61-year-old female presents to the ER due to shortness of breath, cough and fever. Recent admission last month for the patient currently meets requirements for healthcare associated pneumonia. Chest x-ray shows concern for cardiomegaly and pulmonary vascular congestion. However she has opacifications and a recent admission with the fever suggesting pneumonia. Patient will be covered with vancomycin, Zosyn and Levaquin. Hemodynamically stable. Admitted to the hospitalist service. - Medical Records Medical records reviewed: Yes I reviewed the patient's medical records. - Lab Data Lab results reviewed: Yes I reviewed the patient's lab results. Result diagrams: 12/29/16 Unknown 12/29/16 Unknown Lab Results 12/28/16 12/28/16 12/28/16 Range/Units 20:43 20:43 20:43 WBC (4.3-11.1) K/mcL RBC (3.82-4.97) M/mcL Hgb (11.5-15.4) g/dL Hct (35.3-44.9) % MCV (83.0-100.0) fL MCH (28.0-33.3) pg MCHC (31.6-35.5) g/dL RDW (11.5-14.5) % Plt Count (140-400) K/mcL MPV (9.4-12.4) fL Immature Gran % (0-4) % Seg Neutrophils % % Lymphocytes % % Monocytes % % Eosinophils % % Basophils % % Neutrophils # (1.6-8.9) K/mcL Lymphocytes # (0.6-4.6) K/mcL Monocytes # (0.0-1.3) K/mcL Eosinophils # (0.0-0.6) K/mcL Basophils # (0.0-0.2) K/mcL Sodium 128 L (136-145) mEq/L Potassium 4.0 (3.5-4.5) mEq/L Chloride 98 (98-109) mEq/L Carbon Dioxide 16 L (19-29) mEq/L BUN 47 H (7-20) mg/dL Creatinine 3.23 H (0.57-1.11) mg/dL Est GFR ( Amer) 18 L (> 60) Est GFR (Non-Af Amer) 15 L (> 60) BUN/Creatinine Ratio 15 (6-26) Glucose 286 H (70-99) mg/dL Calculated Osmolality 289 (280-300) Lactic Acid 1.3 (0.5-2.2) mmol/L Calcium 8.6 (8.6-10.8) mg/dL Troponin I (0-0.03) ng/mL B-Natriuretic Peptide (0-100) pg/mL Specimen Rejected Volume 12/28/16 12/28/16 12/28/16 Range/Units 22:01 22:01 22:01 WBC 7.5 (4.3-11.1) K/mcL RBC 4.14 (3.82-4.97) M/mcL Hgb 10.7 L (11.5-15.4) g/dL Hct 34.3 L (35.3-44.9) % MCV 82.9 L (83.0-100.0) fL MCH 25.8 L (28.0-33.3) pg MCHC 31.2 L (31.6-35.5) g/dL RDW 16.6 H (11.5-14.5) % Plt Count 163 (140-400) K/mcL MPV 9.8 (9.4-12.4) fL Immature Gran % 0.7 (0-4) % Seg Neutrophils % 89.9 % Lymphocytes % 5.9 % Monocytes % 2.7 % Eosinophils % 0.1 % Basophils % 0.7 % Neutrophils # 6.7 (1.6-8.9) K/mcL Lymphocytes # 0.4 L (0.6-4.6) K/mcL Monocytes # 0.2 (0.0-1.3) K/mcL Eosinophils # 0.0 (0.0-0.6) K/mcL Basophils # 0.1 (0.0-0.2) K/mcL Sodium (136-145) mEq/L Potassium (3.5-4.5) mEq/L Chloride (98-109) mEq/L Carbon Dioxide (19-29) mEq/L BUN (7-20) mg/dL Creatinine (0.57-1.11) mg/dL Est GFR ( Amer) (> 60) Est GFR (Non-Af Amer) (> 60) BUN/Creatinine Ratio (6-26) Glucose (70-99) mg/dL Calculated Osmolality (280-300) Lactic Acid (0.5-2.2) mmol/L Calcium (8.6-10.8) mg/dL Troponin I 0.01 (0-0.03) ng/mL B-Natriuretic Peptide 587 H (0-100) pg/mL Specimen Rejected - Radiology Data Radiology results reviewed: Yes I reviewed the patient's radiology results. Chest X-Ray 12/28/16 21:30 IMPRESSION: Right central venous catheter tip overlies the SVC. No pneumothorax. D/ / 12/28/2016 21:51:50 Dennis Bartlett MD / macario Interpreting Provider: Dennis Bartlett MD - EKG Data EKG attestation: Yes I reviewed and interpreted this EKG. EKG results narrative: EKG is interpreted by myself without benefit from a cardiology interpretation showing a normal sinus rhythm with first-degree AV block at a rate of 91 bpm, poor R-wave progression across the anterior lead. No significant changes when compared to an old EKG from 11/15/2008. S.B.A.R. - S.B.A.R. Situation: Demographics, MOA Background: Presenting Complaint, Relevant PMH, Meds, & Allergies Assessment: Vital Signs, Course and respsone to treatment, Exam Concerns, Patient/Family Expectation, Pertinant Lab Results, Outstanding Labs Recommendation: Barrier(s) to disposition, Recommendation based on pending studies, treatments, or consults S.B.A.R. Report Given to: Dr. Levin Attestation Statement - Attestation Attestation: I personally interviewed and examined this patient and my medical decision- making was reviewed with the ED Resident Physician, Dr. Marrufo. I agree with the documented findings, disposition and treatment plan as described in the documentation. Patient is a 61-year-old white female who presents to the emergency department via EMS for gradually worsening shortness of breath over the past 2 weeks. Patient has multiple comorbidities including CHF, COPD, CAD, prior history of PE DVT. Patient states that she "feels like I have pneumonia", stating that today she did notice that she had a fever at home, is having increased frequency of cough but no production. Feels like she is having worsening shortness of breath with wheezing, and no improvement with inhalers at home. Patient is on her home 3 L of oxygen currently and satting 98% in no acute respiratory distress. No conversational dyspnea is appreciated. Patient this time denies any chest pain or pressure, no heaviness, no nausea vomiting, no abdominal pain or back pain, no lower extremity pain or cramping, no increase in swelling from her baseline per patient. On exam has diffuse expiratory wheezing throughout on auscultation. No rales or rhonchi appreciated. Abdomen is soft nontender nondistended with positive bowel sounds. Extremities are 2+ pitting edema bilaterally with overlying erythema and warmth to touch. I do not appreciate any open wounds, or areas of fluctuance to the lower extremities. KG was interpreted and placed on the chart with no acute findings. Plan is to continue patient on her home O2, labs at this time are pending, patient received aspirin and nitroglycerin in route to the ER. We will do aerosols as well as chest x-ray imaging to determine possible etiology of patient's shortness of breath. Due to patient's fever on arrival we will administer Tylenol, obtain blood cultures and lactate. Pt with need for central venous access, due to inability to obtain peripheral access, and limited sites available due to HD in LUE, and wrist fx RUE. Personally supervised Dr. Marrufo at bedside with ultrasound-guided central line placement. Pt signed consent for procedure, understands risks/benenfits. Please see Dr. Marrufo's procedure note, for R IJ central venous access. Awaiting labs currently. Initiated antibx, will be administered once venous access complete. IV antibiotics have been ordered. Probable chest x-ray was reviewed evidence of pneumothorax following central line placement. Patient remained hemodynamically stable at this time. Currently suspect pneumonia with acute exacerbation of COPD. Patient will be covered with antibiotics IV and admitted to the hospitalist service for further evaluation and management. Troponin negative.
[2016-12-28] MEDS ORDERED: Vancomycin 2,000 MG in D5% in Water 500 ML IVPB ONE (20:39)
[2016-12-28] MEDS ORDERED: Levofloxacin 750 MG/150 ML 750 MG/150 ML BAG IVPB ONE (20:39)
[2016-12-28] MEDS ORDERED: Piperacillin/Tazobactam 3.375 GM in D5% in Water (Mini-Bag+) 100 ML IVPB ONE (20:39)
[2016-12-28 21:02] LABS: Calcium 8.6 mg/dL (8.6-10.8)
[2016-12-28 22:17] LABS: Basophils # 0.1 K/mcL (0.0-0.2); Basophils % 0.7 %; Eosinophils % 0.1 %; Hematocrit 34.3 % (35.3-44.9); Hemoglobin 10.7 g/dL (11.5-15.4); Immature Granulocytes % 0.7 % (0-4); Lymphocytes # 0.4 K/mcL (0.6-4.6); Lymphocytes % 5.9 %; Mean Corpuscular HGB Conc 31.2 g/dL (31.6-35.5); Mean Corpuscular Hemoglobin 25.8 pg (28.0-33.3); Mean Corpuscular Volume 82.9 fL (83.0-100.0); Mean Platelet Volume 9.8 fL (9.4-12.4); Monocytes # 0.2 K/mcL (0.0-1.3); Monocytes % 2.7 %; Neutrophils # 6.7 K/mcL (1.6-8.9); Platelet Count 163 K/mcL (140-400); Red Blood Count 4.14 M/mcL (3.82-4.97); Red Cell Distribution Width 16.6 % (11.5-14.5); Segmented Neutrophils % 89.9 %
[2016-12-29] MEDS: Insulin LISPRO 300 UNITS/3 ML VIAL SQ SCH ×5 (01:44→20:16)
[2016-12-29 03:13] LABS: Adenovirus Not Detected (Not Detect); Bordetella Pertussis Not Detected (Not Detect); Chlamydophila pneumoniae Not Detected (Not Detect); Coronavirus 229E Not Detected (Not Detect); Coronavirus HKU1 Not Detected (Not Detect); Coronavirus NL63 Not Detected (Not Detect); Coronavirus OC43 Not Detected (Not Detect); Human Metapneumovirus Not Detected (Not Detect); Human Rhinovirus/Enterovirus Not Detected (Not Detect); Influenza A Subtype 2009 H1 Not Detected (Not Detect); Influenza A Untypeable Not Detected (Not Detect); Influenza B Not Detected (Not Detect); Mycoplasma pneumoniae Not Detected (Not Detect); Parainfluenza Virus 1 Not Detected (Not Detect); Parainfluenza Virus 2 Not Detected (Not Detect); Parainfluenza Virus 3 Not Detected (Not Detect); Parainfluenza Virus 4 Not Detected (Not Detect); Respiratory Syncytial Virus Not Detected (Not Detect)
[2016-12-29] MEDS ORDERED: Naloxone 0.4 MG/ML INJ IVP PRN (03:16)
[2016-12-29] MEDS ORDERED: Acetaminophen 325 MG TABLET PO PRN (03:16)
[2016-12-29] MEDS ORDERED: Albuterol Neb 0.63 MG/3 ML VIAL IH PRN (03:22)
--- NOTE | 2016-12-29 03:32 | Internal Med History&Physical ---
Date of Encounter: 12/29/16 Time of Encounter: 03:27 Assessment and Plan (1) Pneumonia Current visit: Yes Status: Suspected 1. CXR suggest fluid overload and not pneumonia. However, clinically, patient presents with suspected pneumonia. 2. Will treat with Levaquin, aerosols, and close monitoring. 3. Oxygen and aerosols as needed for support. Qualifiers: Pneumonia type: due to unspecified organism Laterality: bilateral Lung location: lower lobe of lung Qualified Code(s): J18.9 - Pneumonia, unspecified organism (2) Diabetes type 2, uncontrolled Current visit: Yes Status: Chronic 1. Will continue basal insulin and SSI. 2. Monitor and adjust as necessary. 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 Will consult nephrology to assist with HD needs. (4) DVT prophylaxis Current visit: Yes Status: Acute 1. Heparin SQ. Internal Medicine - H&P: HPI Chief complaint: COUGH; FEVER Admitted From: Emergency Dept Plans for Post Hospital Care: Home History of present illness: Ms. Riley is a 61 year old female who developed a fever, cough, and shortness of breath over the last 2-3 days. She is concerned she is developing pneumonia. She denies any vomiting or diarrhea. She has had multiple ill contacts. She purposely missed her dialysis yesterday for fear of being exposed to other sick contacts. As the day progressed, she has become more and more short of breath and noted some increase in edema as well. Her biggest concern, however, is that she has been coughing productively with thick phlegm and mucus, short of breath, and low-grade fever. This prompted her to come to ER where she was diagnosed with pneumonia, at least on clinical grounds. She was subsequently admitted to hospitalist service. Upon my assessment of the patient, she is in no acute distress, but she does complain of cough, shortness of breath, and worsening flank pain. She has been unable to lie flat the last couple days because of the fluid overload. She states she has missed several episodes of dialysis the last few years due to concerns of ill contacts at her dialysis unit. She denies any other complaints , but her glucose control appears to be out of control. Past Med Surg Social Fam HX - Past Medical History Attestation: Yes The following information was validated with the patient. Source: patient, old records reviewed Medical history: arthritis, atrial fibrillation, CHF, COPD, coronary artery disease, CVA, DVT, diabetes, dialysis, fibromyalgia, GERD, hyperlipidemia, hypertension, kidney stones, migraine, myocardial infarction, osteoporosis, peripheral artery disease, renal disease Psychiatric history: anxiety - Past Surgical History Surgical History: angioplasty/stent, appendectomy, cholecystectomy, coronary bypass (CABG), hysterectomy, knee replacement, other, IVC filter - Social History Smoking Status: Current every day smoker Packs per day: 1 Smokeless Tobacco Status: No Alcohol use: none Drug use: none Current living situation: Home - Independent Activity Level: Independent ambulation Recent Out of Country Travel Within the Last 8 Weeks: No - Family History Father Living Status: Hx Family Cardiac Disorders: Yes Hx Family Endocrine Disorder: Yes Mother Living Status: Still Living Hx Family Respiratory Disorders: Yes (end stage copd) Internal Medicine - H&P: Meds Amitriptyline [Elavil] 100 mg PO HS 05/11/15 [History] Clopidogrel [Plavix] 75 mg PO DAILY 05/11/15 [History] Ergocalciferol (VITAMIN D2) [Vitamin D2 (50,000 UNIT)] 50,000 units PO TH #0 [History] Omeprazole [PriLOSEC] 20 mg PO BID 05/11/15 [History] Rosuvastatin [Crestor] 40 mg PO HS 05/11/15 [History] Sevelamer [Renvela] 800 mg PO TIDWM 05/11/15 [History] Albuterol Neb [AccuNeb] 3 ml IH Q6H PRN 06/12/15 [History] Aripiprazole [Abilify] 10 mg PO HS 06/12/15 [History] Colestipol HCl [Colestid] 1 gm PO BID 06/12/15 [History] Sennosides [Senna] 8.6 mg PO BID 06/12/15 [History] Carvedilol 12.5 mg PO BID 10/28/15 [History] HydrALAZINE 50 mg PO BID 12/30/15 [History] Amlodipine [Norvasc] 5 mg PO DAILY 06/09/16 [History] Insulin Glargine,Hum.rec.anlog [Lantus Solostar] 60 unit SQ BID 06/09/16 [ History] Budesonide/Formoterol 160/4.5 [Symbicort 160/4.5] 2 puff IH BIDR inhaler [Rx] Gabapentin [Neurontin] 200 mg PO TID 30 Days 06/18/16 [Rx] Calcium Acetate [Phos-LO] 667 mg PO TIDWM 09/06/16 [History] Furosemide [Lasix] 80 mg PO BID 09/06/16 [History] Insulin LISPRO [Humalog] 20 unit SQ TIDWM 09/06/16 [History] Metolazone [Zaroxolyn] 2.5 mg PO MOWEFR 09/06/16 [History] Tiotropium [place] [Spiriva] 18 mcg IH DAILY 11/15/16 [History] OxyCODONE/APAP 10/325 [Percocet 10/325 MG] 1 each PO Q6H PRN #10 tablet [Rx] Oxycodone HCl [Oxycontin] 30 mg PO Q12H #10 tab.er.12h 11/19/16 [Rx] Allergies No Known Allergies Allergy (Verified 12/28/16 19:00) - Constitutional Constitutional: chills, fever(s), no night sweats - EENT Eyes: no change in vision, no diplopia Ears: no ear pain, no tinnitus Nose, mouth and throat: nasal congestion, no sinus pain, no sinus pressure, no sore throat - Cardiovascular Cardiovascular ROS IM: edema, orthopnea, no chest pain, no diaphoresis, no palpitations, no paroxysmal nocturnal dyspnea, no syncope - Respiratory Respiratory: cough, dyspnea, chest congestion, excessive phlegm production, change in phlegm color, no hemoptysis, no pain on inspiration - Gastrointestinal Gastrointestinal: no abdominal pain, no diarrhea, no hematemesis, no hematochezia, no melena, no nausea, no vomiting - Genitourinary Genitourinary: no dysuria, no flank pain, no hematuria - Musculoskeletal Musculoskeletal ROS IM: back pain, no muscle weakness, no myalgias - Integumentary Integumentary IM: no rash, no jaundice - Neurological Neurological ROS: no dizziness, no focal weakness, no frequent falls - Psychiatric Psychiatric: no anxiety, no depression - Endocrine Endocrine IM: polydipsia, polyuria - Allergic/Immunologic Allergic/Immunologic: wheezing, no GI upset with certain foods - Constitutional Vitals: Temp Pulse Resp BP Pulse Ox 98.0 F 93 20 159/64 96 12/29/16 03:16 12/29/16 03:16 12/29/16 03:16 12/29/16 03:16 12/29/16 03:16 General appearance: Present: cooperative, mild distress, A&O X 3, pleasant, answers questions appropriately - Head Head exam: Present: atraumatic, normal inspection - Expanded Head Exam Head exam expanded: Absent: abrasion, contusion, general tenderness - Eye Eye exam: Present: EOMI, normal appearance, PERRL, scleral icterus - ENT ENT exam: Present: mucous membranes dry, normal exam, normal oropharynx - Neck Neck exam general surgery: Present: full ROM, supple. Absent: lymphadenopathy, tenderness, trachea midline - Expanded Neck Exam Neck exam: Absent: carotid bruit - Respiratory Respiratory exam: Present: rales (mostly right base), rhonchi. Absent: accessory muscle use, chest wall tenderness, respiratory distress, wheezes - Cardiovascular Cardiovascular exam: Present: RRR, +S1, +S2. Absent: diastolic murmur, systolic murmur - GI/Abdominal GI/Abdominal exam: Present: normal bowel sounds, soft. Absent: hepatomegaly, splenomegaly - Extremities Exam Extremities exam: Present: full ROM, pedal edema (2+ with venous stasis changes) , warm. Absent: calf tenderness, joint swelling - Back Exam Back exam: Present: tenderness. Absent: CVA tenderness (L), CVA tenderness (R) - Neurological Exam Neurological exam: Present: alert, oriented X3, no focal deficits, strengths equal and symetr throughout - Psychiatric Psychiatric exam: Present: normal affect, normal mood - Skin Skin exam: Present: dry, warm. Absent: rash Internal Med - H&P Results - Labs CBC & Chem 7: 12/28/16 22:01 12/28/16 20:43 - Diagnostic Studies Chest x-ray Status: image reviewed by me (vascular congestion)
[2016-12-29] MEDS: Insulin DETEMIR 100 UNIT/ML X5UNITS SQ SCH ×3 (04:41→20:28)
[2016-12-29] MEDS: *HR* OxyCODONE ER (12 HR) 10 MG TABLET PO SCH ×2 (04:48→15:04)
[2016-12-29] MEDS: *HR* Heparin 5,000 UNIT/ML VIAL SQ SCH ×3 (04:52→23:41)
[2016-12-29 04:53] LABS: Basophils % 0.2 %; Hematocrit 34.2 % (35.3-44.9); Hemoglobin 10.6 g/dL (11.5-15.4); Immature Granulocytes % 0.6 % (0-4); Lymphocytes # 0.3 K/mcL (0.6-4.6); Lymphocytes % 6.8 %; Mean Corpuscular Hemoglobin 25.6 pg (28.0-33.3); Mean Corpuscular Volume 82.6 fL (83.0-100.0); Mean Platelet Volume 10.1 fL (9.4-12.4); Monocytes # 0.1 K/mcL (0.0-1.3); Monocytes % 1.2 %; Neutrophils # 4.4 K/mcL (1.6-8.9); Platelet Count 167 K/mcL (140-400); Red Blood Count 4.14 M/mcL (3.82-4.97); Red Cell Distribution Width 16.5 % (11.5-14.5); Segmented Neutrophils % 91.2 %
[2016-12-29 04:56] LABS: INR 1.2; Prothrombin Time 12.6 Seconds (9.4-12.1)
[2016-12-29 04:58] LABS: Activated Partial Thrombo Time 32.8 Seconds (26.0-36.0)
[2016-12-29 05:09] LABS: Albumin 2.7 g/dL (3.5-5.0); Albumin/Globulin Ratio 0.6 (1.1-2.2); Bilirubin,Total 0.5 mg/dL (0.2-1.2); Calcium 8.5 mg/dL (8.6-10.8); Globulin 4.2 g/dL (2.4-3.5); Magnesium 2.1 mg/dL (1.6-2.6); Phosphorous 5.2 mg/dL (2.3-4.7); Potassium 3.8 mEq/L (3.5-4.5); Total Protein 6.9 g/dL (6.0-8.3)
[2016-12-29] MEDS: Budesonide/Formoterol 160/4.5 MDI IH SCH ×2 (08:02→20:18)
[2016-12-29] MEDS ORDERED: Levofloxacin 750 MG/150 ML 750 MG/150 ML BAG IVPB SCH (09:00)
[2016-12-29] MEDS ORDERED: Tiotropium 18 MCG inhalation IH SCH (09:00)
--- NOTE | 2016-12-29 09:01 | Nephrology Consult Note ---
Date of Encounter: 12/29/16 Time of Encounter: 08:58 Assessment and Plan (1) ESRD (end stage renal disease) on dialysis Current Visit: Yes Status: Acute Since she missed her dialysis treatment yesterday we will proceed with dialysis today. 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 machine operator insulin use: without batting machine operator use Chronic kidney disease stage: on chronic dialysis Qualified Code(s): E11.22 - Type 2 diabetes mellitus with diabetic chronic kidney disease; E11.65 - Type 2 diabetes mellitus with hyperglycemia; N18.6 - End stage renal disease; Z99.2 - Dependence on renal dialysis (3) Pneumonia Current Visit: Yes Status: Suspected per primary team Qualifiers: Pneumonia type: due to unspecified organism Laterality: bilateral Lung location: lower lobe of lung Qualified Code(s): J18.9 - Pneumonia, unspecified organism History of Present Illness - Reason for Consult Consult date: 12/29/16 end stage renal disease - Chief Complaint pneumonia; ESRD on dialysis - History of Present Illness Ms. Riley is a 61 year old female well known to our practice with a PMH of diabetes, GERD, HTN, COPD, CAD, fibramyalgia, CHF, MO, peripheral vascular disease, and ESRD on HD M,W,F at [facility] who developed a fever, cough , and shortness of breath over the last 2-3 days. She was worried she was developing pneumonia and purposefully missed her dialysis treatment yesterday for fear of being exposed to other sick contacts. As the day progressed, she has become more and more short of breath and noted some increase in edema as well. She has a productive cough with thick phlegm and mucus, short of breath, and low-grade fever. She presented to the ER where she was diagnosed with pneumonia and subsequently admitted to hospitalist service. Nephrology has been consulted to manage her dialysis while hospitalized. Past Med Surg Social Fam HX - Past Medical History Medical history: arthritis, atrial fibrillation, CHF, COPD, coronary artery disease, CVA, DVT, diabetes, dialysis, fibromyalgia, GERD, hyperlipidemia, hypertension, kidney stones, migraine, myocardial infarction, osteoporosis, peripheral artery disease, renal disease Psychiatric history: anxiety - Past Surgical History Surgical History: angioplasty/stent, appendectomy, cholecystectomy, coronary bypass (CABG), hysterectomy, knee replacement, other, IVC filter - Social History Smoking Status: Current every day smoker Packs per day: 1 Smokeless Tobacco Status: No Alcohol use: none Drug use: none - Family History Father Living Status: Hx Family Cardiac Disorders: Yes Hx Family Endocrine Disorder: Yes Mother Living Status: Still Living Hx Family Respiratory Disorders: Yes (end stage copd) Medications and Allergies Amitriptyline [Elavil] 100 mg PO HS 05/11/15 [History] Clopidogrel [Plavix] 75 mg PO DAILY 05/11/15 [History] Ergocalciferol (VITAMIN D2) [Vitamin D2 (50,000 UNIT)] 50,000 units PO TH #0 [History] Omeprazole [PriLOSEC] 20 mg PO BID 05/11/15 [History] Rosuvastatin [Crestor] 40 mg PO HS 05/11/15 [History] Sevelamer [Renvela] 800 mg PO TIDWM 05/11/15 [History] Albuterol Neb [AccuNeb] 3 ml IH Q6H PRN 06/12/15 [History] Aripiprazole [Abilify] 10 mg PO HS 06/12/15 [History] Colestipol HCl [Colestid] 1 gm PO BID 06/12/15 [History] Sennosides [Senna] 8.6 mg PO BID 06/12/15 [History] Carvedilol 12.5 mg PO BID 10/28/15 [History] HydrALAZINE 50 mg PO BID 12/30/15 [History] Amlodipine [Norvasc] 5 mg PO DAILY 06/09/16 [History] Insulin Glargine,Hum.rec.anlog [Lantus Solostar] 60 unit SQ BID 06/09/16 [ History] Budesonide/Formoterol 160/4.5 [Symbicort 160/4.5] 2 puff IH BIDR inhaler [Rx] Gabapentin [Neurontin] 200 mg PO TID 30 Days 06/18/16 [Rx] Calcium Acetate [Phos-LO] 667 mg PO TIDWM 09/06/16 [History] Furosemide [Lasix] 80 mg PO BID 09/06/16 [History] Insulin LISPRO [Humalog] 20 unit SQ TIDWM 09/06/16 [History] Metolazone [Zaroxolyn] 2.5 mg PO MOWEFR 09/06/16 [History] Tiotropium [place] [Spiriva] 18 mcg IH DAILY 11/15/16 [History] OxyCODONE/APAP 10/325 [Percocet 10/325 MG] 1 each PO Q6H PRN #10 tablet [Rx] Oxycodone HCl [Oxycontin] 30 mg PO Q12H #10 tab.er.12h 11/19/16 [Rx] Allergies No Known Allergies Allergy (Verified 12/28/16 19:00) Review of Systems All Systems: reviewed and no additional remarkable complaints except as stated Constitutional: chills, fatigue, fever(s), lethargy, weight gain Nose, mouth and throat: no dizziness Cardiovascular: dyspnea, dyspnea on exertion, leg edema, pedal edema, no chest pain Respiratory: cough, dyspnea, wheezing Gastrointestinal: no constipation, no nausea, no vomiting Neurological: no behavioral changes, no confusion Exam - Vital Signs Vital signs: Initial Vital Signs Temp Pulse Resp BP Pulse Ox 100.4 F H 93 18 147/69 97 12/28/16 18:55 12/28/16 18:55 12/28/16 18:55 12/28/16 18:55 12/28/16 18:55 Vital Signs - Last 8 Hours Temp Pulse Resp BP Pulse Ox 12/29/16 07:56 98.0 F 86 17 144/67 91 L 12/29/16 03:16 98.0 F 93 20 159/64 96 Intake and Output 12/28/16 12/29/16 12/29/16 23:59 07:59 15:59 Other: # Voids 1 Weight 134.853 kg Blood Glucose* 372 Patient Weight 12/29/16 23:59 Weight 134.853 kg - General Appearance General appearance: obese EENT: ATNC, mucous membranes moist, hearing intact, vision intact Neck: supple Respiratory: wheezing (short of breath when talking), course breath sounds, rhonchi Cardiology: normal S1, normal S2 - Dialysis Access Dialysis Vascular Access: Arteriovenous Fistula thrill: Yes bruit: Yes Gastrointestinal: no tenderness, no guarding Integumentary: warm and dry Neurologic: alert and oriented x3 Psychiatric: mood/affect appropriate Results - Lab Results 12/29/16 Unknown 12/29/16 Unknown Most recent lab results Calcium 8.5 mg/dL (8.6-10.8) L 12/29/16 Unknown Phosphorus 5.2 mg/dL (2.3-4.7) H 12/29/16 Unknown Magnesium 2.1 mg/dL (1.6-2.6) 12/29/16 Unknown Consult Discharge Plan - Plan Referrals: Tristen Quintana MD [Primary Care Provider] -
[2016-12-29] MEDS ORDERED: 0.9 % Sodium Chloride 2,000 ML ONE (13:16)
[2016-12-29] MEDS: Gabapentin 100 MG CAPSULE PO SCH ×3 (14:51→23:22)
[2016-12-29] MEDS: Sennosides 8.6 MG TABLET PO SCH ×2 (14:58→23:37)
[2016-12-29] MEDS: Furosemide 40 MG TABLET PO SCH ×2 (14:58→23:16)
[2016-12-29] MEDS: amLODIPine 5 MG TABLET PO SCH (14:58)
--- NOTE | 2016-12-29 16:07 | Electrocardiograph Report ---
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
[2016-12-29] MEDS ORDERED: *HR* Acetaminophen w/Cod 300-30 mg 1 TAB TABLET PO PRN (17:07)
[2016-12-29] MEDS ORDERED: Albuterol 2.5 MG/3 ML NEBULIZER IH PRN (17:07)
--- NOTE | 2016-12-29 17:07 | Event Note ---
Date of Encounter: 12/29/16 Time of Encounter: 15:00 Patient seen and examined upon her return from dialysis. On examination, patient initially asleep and awakened easily to voice. Patient complaining of shortness of breath and persistent, hacking cough. She is endorsing pain with persistent coughing. Chest x-ray consistent with mild CHF otherwise unremarkable. Clinically however she presents more consistent with pneumonia, will continue levofloxacin. Viral respiratory panel negative. Mild anemia noted, chronic. Patient had dialysis earlier today and nephrology is on board. On examination, patient with coarse wheezing throughout and fair aeration. We will add bronchodilators and mucolytic's to her regimen. We will also add cough medicine. Patient with 4+ pitting edema noted bilaterally with erythema present to bilateral lower extremities. Patient stating this is how her legs normally look and states she has no feeling. No open sores or signs of acute infection present on examination, we will continue to monitor. Patient with acute on chronic respiratory failure, at home she is on 3 L per nasal cannula, currently maintaining 3 L per nasal cannula. ITS Impressions Chest X-Ray 12/28/16 19:16 IMPRESSION: Borderline cardiomegaly with pulmonary vascular congestion. D/ / Dennis Bartlett MD / Dennis Bartlett MD Interpreting Provider: Dennis Bartlett MD Chest X-Ray 12/28/16 21:30 IMPRESSION: Right central venous catheter tip overlies the SVC. No pneumothorax. D/ / 12/28/2016 21:51:50 Dennis Bartlett MD / angelika Interpreting Provider: Dennis Bartlett MD
[2016-12-29] MEDS: Benzonatate 100 MG CAPSULE PO PRN (17:22)
[2016-12-29] MEDS: Ipratropium/Albuterol Neb 3 ML IH SCH ×2 (20:18→23:11)
[2016-12-29] MEDS: (Colestipol Hcl [Colestid] 1 GM) PO SCH (20:32)
[2016-12-29] MEDS ORDERED: ARIPiprazole 10 MG TABLET PO SCH (21:00)
[2016-12-29] MEDS: hydrALAZINE 25 MG TABLET PO SCH (23:17)
[2016-12-29] MEDS: MethylPREDNISolone 40 MG/ML VIAL IVP SCH (23:24)
[2016-12-30] MEDS: Ipratropium/Albuterol Neb 3 ML IH SCH ×4 (04:08→16:15)
[2016-12-30] MEDS: *HR* OxyCODONE ER (12 HR) 10 MG TABLET PO SCH ×2 (04:38→15:35)
[2016-12-30 05:21] LABS: Basophils % 0.3 %; Hematocrit 34.5 % (35.3-44.9); Hemoglobin 10.5 g/dL (11.5-15.4); Immature Granulocytes % 0.6 % (0-4); Lymphocytes # 0.5 K/mcL (0.6-4.6); Lymphocytes % 6.8 %; Mean Corpuscular HGB Conc 30.4 g/dL (31.6-35.5); Mean Corpuscular Hemoglobin 25.7 pg (28.0-33.3); Mean Corpuscular Volume 84.6 fL (83.0-100.0); Mean Platelet Volume 10.3 fL (9.4-12.4); Monocytes # 0.3 K/mcL (0.0-1.3); Monocytes % 3.2 %; Neutrophils # 6.9 K/mcL (1.6-8.9); Platelet Count 156 K/mcL (140-400); Red Blood Count 4.08 M/mcL (3.82-4.97); Red Cell Distribution Width 16.4 % (11.5-14.5); Segmented Neutrophils % 89.1 %
[2016-12-30 05:39] LABS: Calcium 8.9 mg/dL (8.6-10.8); Potassium 4.5 mEq/L (3.5-4.5)
[2016-12-30] MEDS: *HR* Heparin 5,000 UNIT/ML VIAL SQ SCH ×2 (06:55→15:36)
[2016-12-30] MEDS: Budesonide/Formoterol 160/4.5 MDI IH SCH (08:18)
[2016-12-30] MEDS: Gabapentin 100 MG CAPSULE PO SCH ×2 (08:39→15:35)
[2016-12-30] MEDS: Sennosides 8.6 MG TABLET PO SCH (08:39)
[2016-12-30] MEDS: Calcium Acetate 667 MG CAPSULE PO SCH ×3 (08:39→18:06)
[2016-12-30] MEDS: (Colestipol Hcl [Colestid] 1 GM) PO SCH (08:40)
[2016-12-30] MEDS: Insulin LISPRO 300 UNITS/3 ML VIAL SQ SCH ×3 (08:40→18:03)
[2016-12-30] MEDS: Benzonatate 100 MG CAPSULE PO PRN (08:40)
[2016-12-30] MEDS: MethylPREDNISolone 40 MG/ML VIAL IVP SCH ×2 (08:40→15:37)
[2016-12-30] MEDS: Insulin DETEMIR 100 UNIT/ML X5UNITS SQ SCH (08:53)
[2016-12-30] MEDS: *HR* OxyCODONE Immed Rel 5 MG TABLET PO PRN ×2 (08:53→18:09)
[2016-12-30] MEDS ORDERED: 0.9 % Sodium Chloride 2,000 ML ONE (09:25)
--- NOTE | 2016-12-30 10:41 | Nephrology Progress Note ---
Date of Encounter: 12/30/16 Time of Encounter: 10:20 - Assessment and Plan (1) ESRD (end stage renal disease) on dialysis Current Visit: Yes Status: Chronic Cont HD today for Wednesday. Targeting further fluid removal as tolerated. Next HD is planned for Wednesday, so okay to d/c from a nephrology perspective. (2) Anemia of chronic disease Current Visit: Yes Status: Chronic Goal Hgb is 10-11. Will plan to provide EPO via the [facility]. (3) Pneumonia Current Visit: Yes Status: Suspected As per primary Qualifiers: Pneumonia type: due to unspecified organism Laterality: bilateral Lung location: lower lobe of lung Qualified Code(s): J18.9 - Pneumonia, unspecified organism Subjective Principal diagnosis: ESRD with recent PNA Interval history: Pt was s/e while on HD. She voiced feeling better; has an upcoming orthopedic appt for her right wrist, that she said was injured when she fell off the heart cath table in Nov, she said. Objective - Vital Signs Vital signs: Vital Signs Temp Pulse Resp BP Pulse Ox 12/30/16 08:40 90 L 12/30/16 08:18 16 90 L 12/30/16 07:10 97.9 F 76 16 99/61 96 12/30/16 04:08 18 97 12/30/16 03:14 98.7 F 90 16 107/71 93 L 12/29/16 23:15 98.1 F 79 16 135/53 100 12/29/16 23:11 18 100 12/29/16 20:18 18 98 12/29/16 19:53 97.9 F 71 16 110/69 98 12/29/16 14:56 97.6 F 86 14 157/74 97 12/29/16 13:30 98.0 F 16 148/78 12/29/16 13:20 140/66 12/29/16 13:05 134/68 12/29/16 12:50 124/67 12/29/16 12:35 144/67 12/29/16 12:20 137/65 12/29/16 12:05 141/66 12/29/16 11:50 128/66 12/29/16 11:35 136/57 12/29/16 11:20 146/63 12/29/16 11:05 145/63 12/29/16 10:50 147/75 Intake and Output 12/29/16 12/30/16 12/30/16 23:59 07:59 15:59 Intake Total 300 / 300 800 / 800 Balance 300 / 300 800 / 800 Intake: Oral 300 / 300 800 / 800 Other: Meal water pitcher filled Weight 130.6 kg Blood Glucose* 135 231 Patient Weight 12/30/16 23:59 Weight 130.6 kg - General Appearance General appearance: Present: well-developed, well-nourished, appears started age , obese EENT: Present: ATNC, PERRL, mucous membranes moist Neck: Present: supple Respiratory: Present: clear Cardiology: Present: edema (1-2 pretibial pitting edema b/l ), normal S1, normal S2 Dialysis Vascular Access: Venous Catheter (RIJ TDC with the dressing appearing C /D/I) Gastrointestinal: Present: normoactive bowel sounds, no tenderness, no guarding Integumentary: Present: no rash, warm and dry Neurologic: Present: no focal deficit, no asterixis, alert and oriented x3 Musculoskeletal: Present: no cyanosis, no clubbing Psychiatric: Present: mood/affect appropriate, cooperative - Lab 12/30/16 05:00 12/30/16 05:00 Most recent lab results Calcium 8.9 mg/dL (8.6-10.8) 12/30/16 05:00 Phosphorus 5.2 mg/dL (2.3-4.7) H 12/29/16 Unknown Magnesium 2.1 mg/dL (1.6-2.6) 12/29/16 Unknown Consult Discharge Plan - Plan Additional Instructions: Follow-up with primary care provider as scheduled. Follow-up with appointment at [place] tomorrow as scheduled. Referrals: Tristen Quintana MD [Primary Care Provider] - 01/04/17 4:00 pm Prescriptions: Acetaminophen w/Cod 300-30 mg [Tylenol w/Codeine #3] 1 tab PO Q6HR PRN #12 tablet PRN Reason: see comments Benzonatate [Tessalon] 200 mg PO TID PRN #40 capsule PRN Reason: Cough Guaifenesin [Guaifenesin ER] 1,200 mg PO BID #10 tab.er.12h Levofloxacin 500 mg PO Q48H #5 tablet
[2016-12-30 14:53] VITALS: BP 112/55
--- NOTE | 2016-12-30 14:58 | Discharge Summary ---
Date of Encounter: 12/30/16 Time of Encounter: 10:00 - Discharge Diagnosis (1) Pneumonia Priority: Primary Status: Suspected Comments: Imaging unremarkable however clinical picture consistent with pneumonia. Treated with levofloxacin while admitted. Blood cultures negative. Patient denied shortness of breath above her normal daily discharge and she did not have increased need for oxygenation however she still had a persistent dry, hacking cough at discharge. Follow-up closely outpatient. Qualifiers: Pneumonia type: due to unspecified organism Laterality: bilateral Lung location: lower lobe of lung Qualified Code(s): J18.9 - Pneumonia, unspecified organism (2) CHF (congestive heart failure) Priority: Secondary Status: Chronic Comments: Acute on chronic diastolic heart failure with preserved ejection fraction. She was treated with furosemide while admitted and euvolemic and at her baseline on day of discharge. Follow-up outpatient. (3) Diabetes Priority: Secondary Status: Chronic Comments: Uncontrolled with an A1c last month of 11.1%. Patient appears to have a lengthy history of noncompliance. She is on Lantus 60 units twice a day and lispro 20 units 3 times a day with meals at home. She is endorsing compliance, recommend follow-up closely outpatient for adjustments to medications. No adjustments made during this admission due to her history of noncompliance. Qualifiers: Diabetes mellitus type: type 2 Diabetes mellitus complication status: with kidney complications Diabetes mellitus complication detail: with chronic kidney disease Diabetes mellitus fci insulin use: with fci use Chronic kidney disease stage: on chronic dialysis Qualified Code(s): E11.22 - Type 2 diabetes mellitus with diabetic chronic kidney disease; N18.6 - End stage renal disease; Z79.4 - termination clerk (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 of insulin; Z99.2 - Dependence on renal dialysis (4) CAD (coronary artery disease) Priority: Secondary Status: Chronic (5) COPD (chronic obstructive pulmonary disease) Priority: Secondary Status: Chronic Comments: No acute exacerbation. Clinical picture more consistent with pneumonia/upper respiratory tract infection. Qualifiers: COPD type: emphysema Emphysema type: unspecified Qualified Code(s): J43.9 - Emphysema, unspecified (6) ESRD on hemodialysis Priority: Secondary Status: Chronic Comments: Nephrology on board during this admission, follow-up outpatient (7) HTN (hypertension) Priority: Secondary Status: Chronic Comments: Controlled, recommend continued follow-up outpatient in daily blood pressure checks at Qualifiers: Hypertension type: essential hypertension Qualified Code(s): I10 - Essential (primary) hypertension (8) Venous stasis dermatitis of both lower extremities Priority: Secondary Status: Chronic Comments: No signs of acute infection or acute cellulitis during this admission (9) DVT prophylaxis Priority: Primary Status: Acute Comments: Subcutaneous heparin while admitted (10) Anemia of chronic disease Priority: Secondary Status: Chronic Comments: Stable and consistent with her baseline throughout this admission, follow-up outpatient (11) Current tobacco use Priority: Secondary Status: Chronic Comments: Still smokes 1 pack per day, declined counseling (12) Morbid obesity with BMI of 45.0-49.9, adult Priority: Secondary Status: Chronic (13) Chronic respiratory failure Priority: Secondary Status: Chronic Comments: On 3 L per nasal cannula continuously at home, no increased need for supplemental oxygenation. Qualifiers: Respiratory failure complication: unspecified whether with hypoxia or hypercapnia Qualified Code(s): J96.10 - Chronic respiratory failure, unspecified whether with hypoxia or hypercapnia - Discharge Medications Prescriptions: Acetaminophen w/Cod 300-30 mg [Tylenol w/Codeine #3] 1 tab PO Q6HR PRN #12 tablet PRN Reason: see comments Benzonatate [Tessalon] 200 mg PO TID PRN #40 capsule PRN Reason: Cough Guaifenesin [Guaifenesin ER] 1,200 mg PO BID #10 tab.er.12h Levofloxacin 500 mg PO Q48H #5 tablet Home Medications: Amitriptyline [Elavil] 100 mg PO HS 05/11/15 [History] Clopidogrel [Plavix] 75 mg PO DAILY 05/11/15 [History] Ergocalciferol (VITAMIN D2) [Vitamin D2 (50,000 UNIT)] 50,000 units PO TH #0 [History] Omeprazole [PriLOSEC] 20 mg PO BID 05/11/15 [History] Rosuvastatin [Crestor] 40 mg PO HS 05/11/15 [History] Sevelamer [Renvela] 800 mg PO TIDWM 05/11/15 [History] Albuterol Neb [AccuNeb] 3 ml IH Q6H PRN 06/12/15 [History] Aripiprazole [Abilify] 10 mg PO HS 06/12/15 [History] Colestipol HCl [Colestid] 1 gm PO BID 06/12/15 [History] Sennosides [Senna] 8.6 mg PO BID 06/12/15 [History] Carvedilol 12.5 mg PO BID 10/28/15 [History] HydrALAZINE 50 mg PO BID 12/30/15 [History] Amlodipine [Norvasc] 5 mg PO DAILY 06/09/16 [History] Insulin Glargine,Hum.rec.anlog [Lantus Solostar] 60 unit SQ BID 06/09/16 [ History] Budesonide/Formoterol 160/4.5 [Symbicort 160/4.5] 2 puff IH BIDR inhaler [Rx] Gabapentin [Neurontin] 200 mg PO TID 30 Days 06/18/16 [Rx] Calcium Acetate [Phos-LO] 667 mg PO TIDWM 09/06/16 [History] Furosemide [Lasix] 80 mg PO BID 09/06/16 [History] Insulin LISPRO [Humalog] 20 unit SQ TIDWM 09/06/16 [History] Metolazone [Zaroxolyn] 2.5 mg PO MOWEFR 09/06/16 [History] Tiotropium [place] [Spiriva] 1 cap IH DAILY 11/15/16 [History] OxyCODONE/APAP 10/325 [Percocet 10/325 MG] 1 each PO Q6H PRN #10 tablet [Rx] Oxycodone HCl [Oxycontin] 30 mg PO Q12H #10 tab.er.12h 11/19/16 [Rx] Albuterol Sulfate [Ventolin Hfa] 2 puff IH Q4H PRN 12/29/16 [History] Ciprofloxacin HCl [Cipro] 250 mg PO BID 12/29/16 [History] Ondansetron ODT [Zofran ODT] 4 mg SL Q8HR PRN 12/29/16 [History] Acetaminophen w/Cod 300-30 mg [Tylenol w/Codeine #3] 1 tab PO Q6HR PRN #12 tablet 12/30/16 [Rx] Benzonatate [Tessalon] 200 mg PO TID PRN #40 capsule 12/30/16 [Rx] Guaifenesin [Guaifenesin ER] 1,200 mg PO BID #10 tab.er.12h 12/30/16 [Rx] Levofloxacin 500 mg PO Q48H #5 tablet 12/30/16 [Rx] Allergies/Adverse Reactions: Allergies No Known Allergies Allergy (Verified 12/28/16 19:00) Date of admission: 12/28/16 23:01 Primary care physician: Tristen Quintana MD Consults: 12/29/16 03:21 Consult to Physician [CONS] Routine Consulting Provider: Luma Mendez Reason for Consult: ESRD HD NEEDS Call Completed: No 12/29/16 08:14 Consult to Nephrology [CONS] Routine Consulting Provider: Fernando Hernandez Reason for Consult: ESRD on HD. skipped dialysis for concerns of ill contacts. Please eval and advise. Here for SOB- clinically dx'd with pna. Call Completed: No 12/29/16 09:15 Consult to Dialysis [CONS] ONCE 12/30/16 08:30 Consult to Dialysis [CONS] ONCE Discharging clinician: Mary Johnson Anticipated date of discharge: 12/30/16 (after dialysis) - Patient Status Disposition: Home Health Service Condition: Good Functional capacity at discharge: uses cane/walker Overall status at discharge: patient is progressing back to baseline - Discharge Instructions Follow Up With: Tristen Quintana MD [Primary Care Provider] - 01/04/17 4:00 pm Additional Instructions: Follow-up with primary care provider as scheduled. Follow-up with appointment at [place] tomorrow as scheduled. - Diet and Activity Activity: increase activity as tolerated, wear oxygen at all times Diet: diabetic diet, low fat, low cholesterol, low salt diet Hospital course: Ms. Riley is a 61 year old female with extensive past medical history including atrial fibrillation, diastolic heart failure, COPD on 3 L per nasal cannula at home, CAD status post CABG, CVA, DVT status post IVC filter, uncontrolled diabetes, end-stage renal disease on hemodialysis, fibromyalgia, GERD, hyperlipidemia, hypertension, migraines, PAD, 1 pack per day smoker, morbid obesity. Patient presented to the emergency department chief complaint fever, cough, shortness of breath 2-3 days. She denied any vomiting or diarrhea and stated she had multiple ill contacts. Patient purposefully missed her dialysis on the day prior to presentation for fear of being exposed to other sick contacts while at dialysis. After she skipped dialysis, as the day progressed, she became increasingly more short of breath and noticed increase in her lower extremity edema as well prompting her presentation to the emergency department. Workup in the emergency department unremarkable. Chest x -ray unremarkable for acute processes and revealed mild CHF. Patient was admitted to the hospitalist service for further evaluation and management. Clinically, patient's physical examination was consistent with pneumonia and she was treated with levofloxacin and pulmonary toilet measures. Nephrology was brought on board and the patient received dialysis on both days of her inpatient two day admission. Viral panel negative. Blood cultures negative. Renal functioning improved while admitted. Patient was gently diuresed and was euvolemic and consistent with her baseline on day of discharge. On day of discharge, patient denied shortness of breath above her norm and she continued to be on her regular 3 L per nasal cannula. She did however continue to have a persistent, hacking cough. Ideally, would have preferred to have kept her overnight to better treat her cough however the patient stated that she had an orthopedic appointment at [place] the day after discharge that she could not miss. She was discharged home in stable condition with close outpatient follow- up recommended. ITS Impressions Chest X-Ray 12/28/16 19:16 IMPRESSION: Borderline cardiomegaly with pulmonary vascular congestion. D/ / Dennis Bartlett MD / Dennis Bartlett MD Interpreting Provider: Dennis Bartlett MD Chest X-Ray 12/28/16 21:30 IMPRESSION: Right central venous catheter tip overlies the SVC. No pneumothorax. D/ / 12/28/2016 21:51:50 Dennis Bartlett MD / angelika Interpreting Provider: Dennis Bartlett MD - Time Spent with Patient Total time spent providing and/or coordinating discharge services: - Constitutional Vitals: Temp Pulse Resp BP Pulse Ox 97.6 F 73 15 112/55 93 L 12/30/16 14:52 12/30/16 14:52 12/30/16 14:52 12/30/16 14:52 12/30/16 14:52 General appearance: Present: cooperative, A&O X 3, morbidly obese, pleasant, no acute distress, answers questions appropriately - Head Head exam: Present: atraumatic, normocephalic - Eye Eye exam: Present: PERRL, conjuntiva pink, sclera anicteric Pupils: Present: PERRL - Neck Neck exam general surgery: Present: supple, trachea midline. Absent: lymphadenopathy - Respiratory Respiratory exam: Present: decreased breath sounds, prolonged expiratory phase. Absent: accessory muscle use, rales, respiratory distress, rhonchi, wheezes - Cardiovascular Cardiovascular exam: Present: RRR, +S1, +S2. Absent: diastolic murmur, gallop, rubs, systolic murmur - GI/Abdominal GI/Abdominal exam: Present: normal bowel sounds, soft, no peritoneal signs. Absent: distended, tenderness - Extremities Exam Extremities exam: Present: pedal edema (Chronic), warm, radial pulses palpable and symetrical. Absent: calf tenderness, cyanotic - Neurological Exam Neurological exam: Present: alert, CN II-XII intact, oriented X3, no focal deficits, strengths equal and symetr throughout. Absent: pronater drift, facial droop, speech deficit - Skin Skin exam: Present: dry, intact, normal color, warm
[2016-12-30] MEDS: Furosemide 40 MG TABLET PO SCH (15:23)
[2016-12-30] MEDS: hydrALAZINE 25 MG TABLET PO SCH (15:25)
[2016-12-30] MEDS: amLODIPine 5 MG TABLET PO SCH (15:35)
--- NOTE | 2016-12-30 15:59 | Physician Discharge Referral ---
Home Health/Hosp Referral Info Transfer to: Home Health Attending Provider: Laurie Johnson CNP Provider in Charge Post Discharge: PCP - Diagnosis (1) Pneumonia Priority: Primary Status: Suspected (2) CHF (congestive heart failure) Priority: Secondary Status: Chronic (3) Diabetes Priority: Secondary Status: Chronic (4) CAD (coronary artery disease) Priority: Secondary Status: Chronic (5) COPD (chronic obstructive pulmonary disease) Priority: Secondary Status: Chronic (6) ESRD on hemodialysis Priority: Secondary Status: Chronic (7) HTN (hypertension) Priority: Secondary Status: Chronic (8) Venous stasis dermatitis of both lower extremities Priority: Secondary Status: Chronic (9) DVT prophylaxis Priority: Primary Status: Acute (10) Anemia of chronic disease Priority: Secondary Status: Chronic (11) Current tobacco use Priority: Secondary Status: Chronic (12) Morbid obesity with BMI of 45.0-49.9, adult Priority: Secondary Status: Chronic (13) Chronic respiratory failure Priority: Secondary Status: Chronic - Respiratory Orders Oxygen / L per min (3) Smoking Cessation: Smoking cessation has been advised. For more information, call the [place] Tobacco Quit Line at 2-868-ZLSY-NOW. - Diet/Nutrition Diet/Nutrition Orders: No Added Salt (LISA), Renal, Cardiac, No Concentrated Sweets (1500ml/day fluid restriction) - Activity Activity Orders: Ambulate, Walker - Services Needed Following services are medically necessary services: Nursing, Home Health Aide - Transfer Medications Prescriptions: Acetaminophen w/Cod 300-30 mg [Tylenol w/Codeine #3] 1 tab PO Q6HR PRN #12 tablet PRN Reason: see comments Benzonatate [Tessalon] 200 mg PO TID PRN #40 capsule PRN Reason: Cough Guaifenesin [Guaifenesin ER] 1,200 mg PO BID #10 tab.er.12h Levofloxacin 500 mg PO Q48H #5 tablet Home Medications: Amitriptyline [Elavil] 100 mg PO HS 05/11/15 [History] Clopidogrel [Plavix] 75 mg PO DAILY 05/11/15 [History] Ergocalciferol (VITAMIN D2) [Vitamin D2 (50,000 UNIT)] 50,000 units PO TH #0 [History] Omeprazole [PriLOSEC] 20 mg PO BID 05/11/15 [History] Rosuvastatin [Crestor] 40 mg PO HS 05/11/15 [History] Sevelamer [Renvela] 800 mg PO TIDWM 05/11/15 [History] Albuterol Neb [AccuNeb] 3 ml IH Q6H PRN 06/12/15 [History] Aripiprazole [Abilify] 10 mg PO HS 06/12/15 [History] Colestipol HCl [Colestid] 1 gm PO BID 06/12/15 [History] Sennosides [Senna] 8.6 mg PO BID 06/12/15 [History] Carvedilol 12.5 mg PO BID 10/28/15 [History] HydrALAZINE 50 mg PO BID 12/30/15 [History] Amlodipine [Norvasc] 5 mg PO DAILY 06/09/16 [History] Insulin Glargine,Hum.rec.anlog [Lantus Solostar] 60 unit SQ BID 06/09/16 [ History] Budesonide/Formoterol 160/4.5 [Symbicort 160/4.5] 2 puff IH BIDR inhaler [Rx] Gabapentin [Neurontin] 200 mg PO TID 30 Days 06/18/16 [Rx] Calcium Acetate [Phos-LO] 667 mg PO TIDWM 09/06/16 [History] Furosemide [Lasix] 80 mg PO BID 09/06/16 [History] Insulin LISPRO [Humalog] 20 unit SQ TIDWM 09/06/16 [History] Metolazone [Zaroxolyn] 2.5 mg PO MOWEFR 09/06/16 [History] Tiotropium [place] [Spiriva] 1 cap IH DAILY 11/15/16 [History] OxyCODONE/APAP 10/325 [Percocet 10/325 MG] 1 each PO Q6H PRN #10 tablet [Rx] Oxycodone HCl [Oxycontin] 30 mg PO Q12H #10 tab.er.12h 11/19/16 [Rx] Albuterol Sulfate [Ventolin Hfa] 2 puff IH Q4H PRN 12/29/16 [History] Ciprofloxacin HCl [Cipro] 250 mg PO BID 12/29/16 [History] Ondansetron ODT [Zofran ODT] 4 mg SL Q8HR PRN 12/29/16 [History] Acetaminophen w/Cod 300-30 mg [Tylenol w/Codeine #3] 1 tab PO Q6HR PRN #12 tablet 12/30/16 [Rx] Benzonatate [Tessalon] 200 mg PO TID PRN #40 capsule 12/30/16 [Rx] Guaifenesin [Guaifenesin ER] 1,200 mg PO BID #10 tab.er.12h 12/30/16 [Rx] Levofloxacin 500 mg PO Q48H #5 tablet 12/30/16 [Rx] Allergies/Adverse Reactions: Allergies No Known Allergies Allergy (Verified 12/28/16 19:00) Certification: Further, I certify that my clinical findings support that this patient is homebound (i.e. absences from home require considerable and taxing effort and are for medical reasons or mu-ism services or infrequently or short duration when for other reasons) because: Homebound Reason: Patient requires assistance of a person or device to safely leave home, Severity of cardiac or pulmonary status limits activity tolerance Attestation: My signature below is to certify that this patient is under my care and that I, or nurse practitioner, or a physician's assistant director of admissions working with me, has a face-to -face encounter with this patient.
[2016-12-30] MEDS ORDERED: metOLazone 2.5 MG TABLET PO SCH (17:01)
[2016-12-30] MEDS ORDERED: Levofloxacin 500 MG/100 ML 500 MG/100 ML BAG IVPB SCH (18:00)
== END 2016-12-30 18:40 | disposition home health service (06) ==
LOC: EMEROO 18:51 → 3BNU 18:51 → SUATTDRO 23:01 → 3BNU 23:42
PROVIDERS: ADMIT Pediatrics; ATTEND Nurse Practitioner Family

== ENCOUNTER 2016-12-31 18:17 | Observation (INO) ==
--- NOTE | 2016-12-31 18:26 | Emergency Department Note ---
Disposition Clinical Impression: Acute exacerbation of chronic obstructive airways disease Disposition: Admitted As Inpatient Condition: Fair SOB HPI - General Chief Complaint: ED Shortness of Breath/Dyspnea Stated Complaint: HERNÁN/"PNEUMONIA" Time Seen by Provider: 12/31/16 18:25 Source: patient Mode of arrival: EMS Limitations: no limitations Nursing Notes Reviewed: Yes Vital Signs Reviewed: Yes - History of Present Illness Ms. Riley is a 61-year-old female that presents for shortness of breath secondary to non-productive cough. Patient recently discharged on 12/30/2016 for pneumonia, acute CHF. Patient reports no improvement on discharge yesterday but states she had to leave for orthopedic appointment today in [place]. Patient notes temperature of 100.5, continued dry cough, and two episodes of vomiting today. Patient was discharged on Levaquin, Benzonatate, and acetaminophen with codeine. Patient states she is sharp pain in her ribs with coughing but denies chest pain at rest. Admits to nausea and vomiting, denies diarrhea or constipation, denies dizziness or syncope. Pt Subjective Complaint: shortness of breath Onset (ago): day(s) Context: recent illness Severity: moderate Consistency/Duration: constant Improves with: nothing Worsens with: coughing Known history of: COPD, congestive heart failure, diabetes, DVT, other ( pneumonia) Associated symptoms: Reports: fever, cough, lower extremity pain (chronic, bilateral), nausea/vomiting. Denies: chest pain, sputum production Cough present: Yes Cough Description: Involuntary, Non-Productive Cough Frequency: Intermittent Sputum production: No Sputum Amount: None - Related Data Home oxygen amount: 3 liters Home Medications Medication Instructions Recorded Confirmed Amitriptyline [Elavil] 100 mg PO HS 05/11/15 12/31/16 Clopidogrel [Plavix] 75 mg PO DAILY 05/11/15 12/31/16 Ergocalciferol (VITAMIN D2) 50,000 units PO TH #0 05/11/15 12/31/16 [Vitamin D2 (50,000 UNIT)] Omeprazole [PriLOSEC] 20 mg PO BID 05/11/15 12/31/16 Rosuvastatin [Crestor] 40 mg PO HS 05/11/15 12/31/16 Sevelamer [Renvela] 800 mg PO TIDWM 05/11/15 12/31/16 Albuterol Neb [AccuNeb] 3 ml IH Q6H PRN 06/12/15 12/31/16 Aripiprazole [Abilify] 10 mg PO HS 06/12/15 12/31/16 Colestipol HCl [Colestid] 1 gm PO BID 06/12/15 12/31/16 Sennosides [Senna] 8.6 mg PO BID 06/12/15 12/31/16 Carvedilol 12.5 mg PO BID 10/28/15 12/31/16 HydrALAZINE 50 mg PO BID 12/30/15 12/31/16 Amlodipine [Norvasc] 5 mg PO DAILY 06/09/16 12/31/16 Insulin Glargine,Hum.rec.anlog 60 unit SQ BID 06/09/16 12/31/16 [Lantus Solostar] Calcium Acetate [Phos-LO] 667 mg PO TIDWM 09/06/16 12/31/16 Furosemide [Lasix] 80 mg PO BID 09/06/16 12/31/16 Insulin LISPRO [Humalog] 20 unit SQ TIDWM 09/06/16 12/31/16 Metolazone [Zaroxolyn] 2.5 mg PO MOWEFR 09/06/16 12/31/16 Tiotropium [place] [Spiriva] 1 cap IH DAILY 11/15/16 12/31/16 Albuterol Sulfate [Ventolin Hfa] 2 puff IH Q4H PRN 12/29/16 12/31/16 Ciprofloxacin HCl [Cipro] 250 mg PO BID 12/29/16 12/31/16 Ondansetron ODT [Zofran ODT] 4 mg SL Q8HR PRN 12/29/16 12/31/16 Oxycodone HCl [Oxycontin] 60 mg PO Q12H 12/31/16 12/31/16 Previous Rx's Medication Instructions Recorded Budesonide/Formoterol 160/4.5 2 puff IH BIDR inhaler 06/18/16 [Symbicort 160/4.5] Gabapentin [Neurontin] 200 mg PO TID 30 Days 06/18/16 OxyCODONE/APAP 10/325 [Percocet 1 each PO Q6H PRN #10 tablet 11/19/16 10/325 MG] Acetaminophen w/Cod 300-30 mg 1 tab PO Q6HR PRN #12 tablet 12/30/16 [Tylenol w/Codeine #3] Benzonatate [Tessalon] 200 mg PO TID PRN #40 capsule 12/30/16 Guaifenesin [Guaifenesin ER] 1,200 mg PO BID #10 tab.er.12h 12/30/16 Levofloxacin 500 mg PO Q48H #5 tablet 12/30/16 Allergies Allergy/AdvReac Type Severity Reaction Status Date / Time No Known Allergies Allergy Verified 12/28/16 19:00 All systems ED: reviewed and negative except as stated. Constitutional: Reports: fever, chills Eyes: Denies: vision change Cardiovascular: Denies: chest pain Respiratory: Reports: cough, dyspnea. Denies: sputum production Gastrointestinal: Reports: abdominal pain, nausea, vomiting. Denies: diarrhea, constipation Genitourinary: Reports: other (oliguria-ESRD) Past Medical History - Past Medical History Attestation: Yes The following information was validated with the patient. 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 Absent : tenderness - Respiratory Respiratory exam: Present: normal lung sounds bilaterally. Absent: wheezes - Cardiovascular Cardiovascular exam: Present: tachycardia, +S1, +S2 - Abdominal Exam Abdominal exam: Present: soft, normal bowel sounds. Absent: guarding, rebound - Extremities Exam Extremities exam: Present: tenderness, pedal edema, other (pedal pulses 2+ bilaterally.) - Expanded Lower Extremity Exam Lower leg exam: Present: tenderness (bilateral tenderness to palpation), swelling (2+ pre-tibial pitting edema bilaterally), erythema (chronic stasis dermatitis with slight increase in erythema and warmth of R lower extremity.) - Neurological Exam Neurological exam: Present: alert, oriented X3 - Psychiatric Psychiatric exam: Present: normal affect, normal mood - Skin Skin exam: Present: warm, dry, intact Course Course Narrative: Currently oxygenating well on room air with saturation 100% on exam, dropping to 94% during episode of coughing. Patient states she took this evening medications at approx 17:00, including her benzonatate. Sepsis risk with patient 's presentation: febrile, tachycardia, and tachypnea. Lab work ordered and pending. - Reevaluation(s) Reevaluation #1: Though patient maintaining appropriate oxygenation, she states she does not feel comfortable going home. She states she feels weak and short of breath. Patient's Troponin elevated at 0.04 today, was 0.01 during recent admission. Will give dose of IV steroids and aspirin. Time: 19:30 - Consultations Consultation #1: Spoke to Dr. Holliday, hospitalist, who accepted patient to medical floor. Time: 19:50 Vital Signs Temperature 100.5 F H 12/31/16 18:19 Pulse Rate 102 12/31/16 18:19 Respiratory Rate 24 12/31/16 18:19 Blood Pressure 150/73 12/31/16 18:19 O2 Sat by Pulse Oximetry 100 12/31/16 18:19 Temperature 97.5 F L 01/01/17 07:55 Pulse Rate 81 01/01/17 07:55 Respiratory Rate 16 01/01/17 07:55 Blood Pressure 129/70 01/01/17 07:55 O2 Sat by Pulse Oximetry 94 L 01/01/17 08:29 Oxygen Delivery Oxygen Delivery Room Air Shortness of Breath/Dyspnea - Differential Diagnosis Likely: acute exacerbation of chronic obstructive airways disease - Medical Records Medical records reviewed: Yes I reviewed the patient's medical records. - Lab Data Lab results reviewed: Yes I reviewed the patient's lab results. Result diagrams: 01/01/17 05:53 01/01/17 06:51 Lab Results 12/31/16 12/31/16 12/31/16 Range/Units 19:05 19:07 19:07 WBC 10.5 (4.3-11.1) K/mcL RBC 4.95 (3.82-4.97) M/mcL Hgb 12.4 D (11.5-15.4) g/dL Hct 41.4 (35.3-44.9) % MCV 83.6 (83.0-100.0) fL MCH 25.1 L (28.0-33.3) pg MCHC 30.0 L (31.6-35.5) g/dL RDW 16.6 H (11.5-14.5) % Plt Count 160 (140-400) K/mcL MPV 10.1 (9.4-12.4) fL Immature Gran % 0.3 (0-4) % Seg Neutrophils % 79.5 % Lymphocytes % 12.4 % Monocytes % 7.6 % Eosinophils % 0.0 % Basophils % 0.2 % Neutrophils # 8.4 (1.6-8.9) K/mcL Lymphocytes # 1.3 (0.6-4.6) K/mcL Monocytes # 0.8 (0.0-1.3) K/mcL Eosinophils # 0.0 (0.0-0.6) K/mcL Basophils # 0.0 (0.0-0.2) K/mcL PT 11.9 (9.4-12.1) Seconds INR 1.1 APTT 31.1 (26.0-36.0) Seconds ABG pH 7.43 (7.32-7.45) pH Units ABG pCO2 48 H (35-45) mmHg ABG pO2 51 L (85-104) mmHg ABG HCO3 31.9 H (21-27) mEQ/L ABG Total CO2 33.4 H (20-26) mEq/L ABG O2 Saturation 87 L (95-98) % ABG Base Excess 6.4 H (-2.0 to 3.0) mEq/L Blood Gas Modality RA Inspired O2 21 % Sodium (136-145) mEq/L Potassium (3.5-4.5) mEq/L Chloride (98-109) mEq/L Carbon Dioxide (19-29) mEq/L BUN (7-20) mg/dL Creatinine (0.57-1.11) mg/dL Est GFR ( Amer) (> 60) Est GFR (Non-Af Amer) (> 60) BUN/Creatinine Ratio (6-26) Glucose (70-99) mg/dL Calculated Osmolality (280-300) Lactic Acid (0.5-2.2) mmol/L Calcium (8.6-10.8) mg/dL Phosphorus (2.3-4.7) mg/dL Magnesium (1.6-2.6) mg/dL Total Bilirubin (0.2-1.2) mg/dL Direct Bilirubin (0.0-0.5) mg/dL Indirect Bilirubin (0.0-1.2) mg/dL AST (5-34) Units/L ALT (0-55) Units/L Alkaline Phosphatase (38-126) Units/L Troponin I (0-0.03) ng/mL Serum Total Protein (6.0-8.3) g/dL Albumin (3.5-5.0) g/dL Globulin (2.4-3.5) g/dL Albumin/Globulin Ratio (1.1-2.2) 12/31/16 12/31/16 12/31/16 Range/Units 19:07 19:07 19:07 WBC (4.3-11.1) K/mcL RBC (3.82-4.97) M/mcL Hgb (11.5-15.4) g/dL Hct (35.3-44.9) % MCV (83.0-100.0) fL MCH (28.0-33.3) pg MCHC (31.6-35.5) g/dL RDW (11.5-14.5) % Plt Count (140-400) K/mcL MPV (9.4-12.4) fL Immature Gran % (0-4) % Seg Neutrophils % % Lymphocytes % % Monocytes % % Eosinophils % % Basophils % % Neutrophils # (1.6-8.9) K/mcL Lymphocytes # (0.6-4.6) K/mcL Monocytes # (0.0-1.3) K/mcL Eosinophils # (0.0-0.6) K/mcL Basophils # (0.0-0.2) K/mcL PT (9.4-12.1) Seconds INR APTT (26.0-36.0) Seconds ABG pH (7.32-7.45) pH Units ABG pCO2 (35-45) mmHg ABG pO2 (85-104) mmHg ABG HCO3 (21-27) mEQ/L ABG Total CO2 (20-26) mEq/L ABG O2 Saturation (95-98) % ABG Base Excess (-2.0 to 3.0) mEq/L Blood Gas Modality Inspired O2 % Sodium 135 L (136-145) mEq/L Potassium 3.6 (3.5-4.5) mEq/L Chloride 91 L (98-109) mEq/L Carbon Dioxide 29 (19-29) mEq/L BUN 52 H D (7-20) mg/dL Creatinine 3.13 H (0.57-1.11) mg/dL Est GFR ( Amer) 18 L (> 60) Est GFR (Non-Af Amer) 15 L (> 60) BUN/Creatinine Ratio 17 (6-26) Glucose 73 (70-99) mg/dL Calculated Osmolality 293 (280-300) Lactic Acid 1.2 (0.5-2.2) mmol/L Calcium 9.0 (8.6-10.8) mg/dL Phosphorus 4.2 (2.3-4.7) mg/dL Magnesium 1.8 (1.6-2.6) mg/dL Total Bilirubin 0.6 (0.2-1.2) mg/dL Direct Bilirubin 0.2 (0.0-0.5) mg/dL Indirect Bilirubin 0.4 (0.0-1.2) mg/dL AST 36 H (5-34) Units/L ALT 40 (0-55) Units/L Alkaline Phosphatase 183 H (38-126) Units/L Troponin I 0.04 H* (0-0.03) ng/mL Serum Total Protein 7.9 (6.0-8.3) g/dL Albumin 3.3 L D (3.5-5.0) g/dL Globulin 4.6 H (2.4-3.5) g/dL Albumin/Globulin Ratio 0.7 L (1.1-2.2) - Radiology Data Radiology results reviewed: Yes I reviewed the patient's radiology results. Chest X-Ray 12/31/16 18:32 IMPRESSION: No acute process. D/ / Keshav Hartman MD / Keshav Hartman MD Interpreting Provider: Keshav Hartman MD - EKG Data EKG attestation: Yes I reviewed and interpreted this EKG. EKG shows normal: Reports: sinus rhythm Rate: Reports: tachycardia Rhythm: Reports: PVC's Interpretation: Reports: no acute changes, unchanged when compared to prior tracing (date) (12/28/16) Attestation Statement - Attestation Attestation: I examined this patient and my medical decision-making was reviewed with the [employer] DEVELOPER/PA/Advanced Practice Nurse/Resident Physician. I agree with the documented findings, disposition and treatment plan as described except to the extent set forth below. He is a 61-year-old female who just recently discharged with pneumonia/COPD exacerbation returns today for dyspnea. She states she left the hospital yesterday because she had a make her orthopedic appointment today but she left the hospital to soon. She states she is having difficulty breathing at home she is unable to ambulate due to the shortness of breath she is having a productive cough and wheezing. On exam lung sounds diminished with prolonged expiratory phase no tachypneic at rest. Patient states no way can she tolerate being at home we called internal medicine omitted to the hospitalist service for continued care
[2016-12-31 19:20] LABS: Basophils % 0.2 %; Hematocrit 41.4 % (35.3-44.9); Immature Granulocytes % 0.3 % (0-4); Lymphocytes # 1.3 K/mcL (0.6-4.6); Lymphocytes % 12.4 %; Mean Corpuscular Hemoglobin 25.1 pg (28.0-33.3); Mean Corpuscular Volume 83.6 fL (83.0-100.0); Mean Platelet Volume 10.1 fL (9.4-12.4); Monocytes # 0.8 K/mcL (0.0-1.3); Monocytes % 7.6 %; Neutrophils # 8.4 K/mcL (1.6-8.9); Platelet Count 160 K/mcL (140-400); Red Blood Count 4.95 M/mcL (3.82-4.97); Red Cell Distribution Width 16.6 % (11.5-14.5); Segmented Neutrophils % 79.5 %
[2016-12-31 19:21] LABS: Hemoglobin 12.4 g/dL (11.5-15.4)
[2016-12-31 19:21] LABS: ABG Base Excess 6.4 mEq/L (-2.0 to 3.0); ABG HCO3 31.9 mEQ/L (21-27); ABG Oxygen Saturation 87 % (95-98); ABG PCO2 48 mmHg (35-45); ABG PH 7.43 pH Units (7.32-7.45); ABG PO2 51 mmHg (85-104); ABG TCO2 33.4 mEq/L (20-26); Blood Gas FiO2 21 %
[2016-12-31 19:24] LABS: INR 1.1; Prothrombin Time 11.9 Seconds (9.4-12.1)
[2016-12-31 19:27] LABS: Activated Partial Thrombo Time 31.1 Seconds (26.0-36.0)
[2016-12-31 19:33] LABS: Albumin/Globulin Ratio 0.7 (1.1-2.2); Bilirubin,Direct 0.2 mg/dL (0.0-0.5); Bilirubin,Indirect 0.4 mg/dL (0.0-1.2); Bilirubin,Total 0.6 mg/dL (0.2-1.2); Globulin 4.6 g/dL (2.4-3.5); Magnesium 1.8 mg/dL (1.6-2.6); Phosphorous 4.2 mg/dL (2.3-4.7); Potassium 3.6 mEq/L (3.5-4.5); Total Protein 7.9 g/dL (6.0-8.3)
[2016-12-31 19:34] LABS: Albumin 3.3 g/dL (3.5-5.0)
[2016-12-31] MEDS ORDERED: methylPREDNISolone 125 MG/2 ML VIAL IVP ONE (19:47)
[2016-12-31] MEDS ORDERED: Aspirin 325 MG TABLET PO ONE (19:47)
--- NOTE | 2016-12-31 23:07 | Internal Med History&Physical ---
Date of Encounter: 12/31/16 Time of Encounter: 23:04 Assessment and Plan (1) Hypoxemia Current visit: Yes Status: Acute Patient admitted to shortness of breath and nonproductive cough. No evidence of pneumonia in chest x-ray. Patient was complaining of fever and had a temperature 100.5. During last admission she was on Levaquin and had viral panel which was negative. She has underlying COPD and is on long-term oxygen therapy however is not very compliant with oxygen therapy. ABG revealed some CO2 retention, which seems chronic, pH did not show acidosis. Additionally, she is a chronic active smoker, she states that smokes 1 pack daily. She has responded to therapy given in the emergency department and her oxygen saturation is above 95% and she is currently not tachycardic. Will request testing for influenza. Will continue with therapy for COPD with nebulizer treatments, continue with steroids. (2) UTI (urinary tract infection) Current visit: No Status: Acute Complaining of some dysuria, history of UTI in the past. Possible UTI, will obtain urinalysis and start empiric antibiotic therapy. Qualifiers: Urinary tract infection type: acute cystitis Hematuria presence: without hematuria Qualified Code(s): N30.00 - Acute cystitis without hematuria (3) Elevated troponin Current visit: Yes Status: Acute Mild elevation of troponins in the absence of chest pain. Reviewing the patient 's electronic medical records I have noticed that she has had elevation of troponins in the past. She has had extensive cardiac workup as outpatient. No interventions at this point. (4) ESRD (end stage renal disease) on dialysis Current visit: No Status: Chronic Continue with hemodialysis according to recommendations by nephrology. (5) Morbid (severe) obesity due to excess calories Current visit: No Status: Chronic (6) DM2 (diabetes mellitus, type 2) Current visit: No Status: Chronic Monitor fingerstick, continue with insulin therapy. glucose on admission was 73. Qualifiers: Diabetes mellitus complication status: with kidney complications Diabetes mellitus complication detail: with chronic kidney disease Diabetes mellitus ferry terminal agent insulin use: with alf use Chronic kidney disease stage: on chronic dialysis Qualified Code(s): E11.22 - Type 2 diabetes mellitus with diabetic chronic kidney disease; N18.6 - End stage renal disease; Z79.4 - long-term (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 of insulin; Z99.2 - Dependence on renal dialysis Internal Medicine - H&P: HPI Chief complaint: Shortness of breath Admitted From: Emergency Dept Plans for Post Hospital Care: Home History of present illness: Ms. Riley is a 61 year old female with past medical history of COPD on long- term oxygen therapy, diabetes, end-stage renal disease on hemodialysis Wednesday and Wednesday, recently discharged from this facility 2 days ago. She presented to our emergency department complaining of shortness of breath, associated with nonproductive cough and wheezing. The patient upon arrival to the emergency department had a temperature of 100.5, blood pressure was 150/73 with an oxygen saturation of 100% on a list at the rate of 24/m. She underwent initial workup which ABG showed a pH of 7.43 with PCO2 of 48 and a PO2 of 51. Troponin was mildly elevated at 0.04. Patient denies chest pain. Chest x-ray did not reveal any acute infiltrates. The patient was admitted for further management and workup. While she was admitted last time she did receive antibiotic therapy with Levaquin. She had a UTI with isolation of pansensitive Escherichia coli in August 2016. She is also complaining of dysuria. During my encounter with the patient she was alert, answering questions, however she was confused and could not recall when was the last time she had hemodialysis. She was supposed to have it yesterday but she is not sure if she had HD. Patient denies loss of consciousness, diarrhea, chest pain. Past Med Surg Social Fam HX - Past Medical History Medical history: arthritis, atrial fibrillation, CHF, COPD, coronary artery disease, CVA, DVT, diabetes, dialysis, fibromyalgia, GERD, hyperlipidemia, hypertension, kidney stones, migraine, myocardial infarction, osteoporosis, peripheral artery disease, renal disease, other Psychiatric history: anxiety - Past Surgical History Surgical History: angioplasty/stent, appendectomy, cholecystectomy, coronary bypass (CABG), hysterectomy, knee replacement, other, IVC filter - Social History Smoking Status: Current every day smoker Packs per day: 1 Smokeless Tobacco Status: No Alcohol use: none Drug use: none - Family History Father Living Status: Hx Family Cardiac Disorders: Yes Hx Family Endocrine Disorder: Yes Mother Living Status: Still Living Hx Family Respiratory Disorders: Yes (end stage copd) Internal Medicine - H&P: Meds Amitriptyline [Elavil] 100 mg PO HS 05/11/15 [History] Clopidogrel [Plavix] 75 mg PO DAILY 05/11/15 [History] Ergocalciferol (VITAMIN D2) [Vitamin D2 (50,000 UNIT)] 50,000 units PO TH #0 [History] Omeprazole [PriLOSEC] 20 mg PO BID 05/11/15 [History] Rosuvastatin [Crestor] 40 mg PO HS 05/11/15 [History] Sevelamer [Renvela] 800 mg PO TIDWM 05/11/15 [History] Albuterol Neb [AccuNeb] 3 ml IH Q6H PRN 06/12/15 [History] Aripiprazole [Abilify] 10 mg PO HS 06/12/15 [History] Colestipol HCl [Colestid] 1 gm PO BID 06/12/15 [History] Sennosides [Senna] 8.6 mg PO BID 06/12/15 [History] Carvedilol 12.5 mg PO BID 10/28/15 [History] HydrALAZINE 50 mg PO BID 12/30/15 [History] Amlodipine [Norvasc] 5 mg PO DAILY 06/09/16 [History] Insulin Glargine,Hum.rec.anlog [Lantus Solostar] 60 unit SQ BID 06/09/16 [ History] Budesonide/Formoterol 160/4.5 [Symbicort 160/4.5] 2 puff IH BIDR inhaler [Rx] Gabapentin [Neurontin] 200 mg PO TID 30 Days 06/18/16 [Rx] Calcium Acetate [Phos-LO] 667 mg PO TIDWM 09/06/16 [History] Furosemide [Lasix] 80 mg PO BID 09/06/16 [History] Insulin LISPRO [Humalog] 20 unit SQ TIDWM 09/06/16 [History] Metolazone [Zaroxolyn] 2.5 mg PO MOWEFR 09/06/16 [History] Tiotropium [place] [Spiriva] 1 cap IH DAILY 11/15/16 [History] OxyCODONE/APAP 10/325 [Percocet 10/325 MG] 1 each PO Q6H PRN #10 tablet [Rx] Albuterol Sulfate [Ventolin Hfa] 2 puff IH Q4H PRN 12/29/16 [History] Ciprofloxacin HCl [Cipro] 250 mg PO BID 12/29/16 [History] Ondansetron ODT [Zofran ODT] 4 mg SL Q8HR PRN 12/29/16 [History] Acetaminophen w/Cod 300-30 mg [Tylenol w/Codeine #3] 1 tab PO Q6HR PRN #12 tablet 12/30/16 [Rx] Benzonatate [Tessalon] 200 mg PO TID PRN #40 capsule 12/30/16 [Rx] Guaifenesin [Guaifenesin ER] 1,200 mg PO BID #10 tab.er.12h 12/30/16 [Rx] Levofloxacin 500 mg PO Q48H #5 tablet 12/30/16 [Rx] Oxycodone HCl [Oxycontin] 60 mg PO Q12H 12/31/16 [History] Allergies No Known Allergies Allergy (Verified 12/28/16 19:00) All Systems PM: A 10-system review of systems was performed and is negative for pertinent findings except as documented above in the HPI. - Constitutional Constitutional: as per HPI, chills, fever(s), no night sweats - EENT Eyes: as per HPI, no change in vision, no discharge, no pain, no photophobia Ears: as per HPI, no ear discharge, no ear pain, no tinnitus Nose, mouth and throat: as per HPI, no dysphagia, no nasal discharge, no neck pain, no sore throat - Breasts Breasts: as per HPI - Cardiovascular Cardiovascular ROS IM: as per HPI, no chest pain, no diaphoresis, no dyspnea, no lightheadedness, no palpitations, no syncope - Respiratory Respiratory: as per HPI, cough, dyspnea on exertion, wheezing, no dyspnea, no excessive phlegm production - Gastrointestinal Gastrointestinal: as per HPI, no abdominal pain, no diarrhea, no hematemesis, no hematochezia, no melena, no nausea, no vomiting - Genitourinary Genitourinary: no change in urinary stream, no dysuria, no flank pain, no hematuria Menstruation: as per HPI - Musculoskeletal Musculoskeletal ROS IM: as per HPI, no numbness, no tingling - Integumentary Integumentary IM: as per HPI, no rash, no unusual bruising - Neurological Neurological ROS: as per HPI, no confusion, no convulsions, no focal weakness, no numbness, no tingling, no tremor(s) - Psychiatric Psychiatric: as per HPI - Endocrine Endocrine IM: as per HPI - Hematologic/Lymphatic Hematologic/Lymphatic: as per HPI, no easy bruising - Allergic/Immunologic Allergic/Immunologic: as per HPI - Constitutional Vitals: Temp Pulse Resp BP Pulse Ox 98.5 F 101 21 156/74 94 L 12/31/16 21:23 12/31/16 21:23 12/31/16 21:23 12/31/16 21:23 12/31/16 21:23 General appearance: Present: cooperative, A&O X 3, obese - Head Head exam: Present: atraumatic, normocephalic - Eye Eye exam: Present: PERRL, conjuntiva pink, sclera anicteric Pupils: Present: PERRL - Neck Neck exam general surgery: Present: supple, trachea midline. Absent: lymphadenopathy - Respiratory Respiratory exam: Present: decreased breath sounds, wheezes. Absent: accessory muscle use, rales, rhonchi - Cardiovascular Cardiovascular exam: Present: RRR, +S1, +S2. Absent: diastolic murmur, gallop, rubs, systolic murmur - GI/Abdominal GI/Abdominal exam: Present: normal bowel sounds, soft, no peritoneal signs. Absent: distended, tenderness - Extremities Exam Extremities exam: Present: warm, radial pulses palpable and symetrical. Absent : calf tenderness, cyanotic, pedal edema - Neurological Exam Neurological exam: Present: CN II-XII intact, oriented X3, no focal deficits. Absent: pronater drift, facial droop, speech deficit - Skin Skin exam: Present: dry, intact Internal Med - H&P Results - Labs CBC & Chem 7: 12/31/16 19:07 12/31/16 19:07
[2016-12-31] MEDS ORDERED: Acetaminophen 325 MG TABLET PO PRN (23:20)
[2016-12-31] MEDS ORDERED: Albuterol 2.5 MG/3 ML NEBULIZER IH PRN (23:20)
[2016-12-31] MEDS ORDERED: Naloxone 0.4 MG/ML INJ IVP PRN (23:20)
[2016-12-31] MEDS ORDERED: Dextrose Gel 15 GM PO PRN ×2 (23:20)
[2016-12-31] MEDS ORDERED: *HR* Dextrose 50 % in Water (Syg) 50 ML SYRINGE IVP PRN (23:20)
[2016-12-31] MEDS: Ipratropium/Albuterol Neb 3 ML IH SCH (23:39)
[2017-01-01] MEDS ORDERED: *HR* OxyCODONE/APAP 5/325 TABLET PO ONE (00:22)
[2017-01-01 02:31] LABS: Bilirubin,Urine Small (Negative); Blood,Urine Negative (Negative); Clarity,Urine Cloudy (Clear); Color,Urine Yellow (Yellow); Glucose,Urine (UA) Normal (Normal); Ketones,Urine Negative (Negative); Leukocyte Esterase,Urine Small (Negative); Nitrite,Urine Negative (Negative); PH,Urine 5.5 pH Units (5.0-8.0); Protein,Urine >=300 mg/dL (Neg-Trace); Urobilinogen,Urine Normal (Normal)
[2017-01-01 02:32] LABS: Hyaline Casts,Urine None Seen per lpf (None-Few); RBC,Urine 0-3 per hpf (0-3); Squamous Epithelial Cell,Urine Many per lpf (None-Few); WBC,Urine 30-50 per hpf (0-3)
[2017-01-01 02:41] LABS: Bacteria,Urine Moderate per hpf (None-Few)
[2017-01-01] MEDS: Ipratropium/Albuterol Neb 3 ML IH SCH ×4 (04:02→22:25)
[2017-01-01] MEDS: MethylPREDNISolone 40 MG/ML VIAL IVP SCH ×2 (05:52→17:21)
[2017-01-01 06:31] LABS: Hematocrit 33.9 % (35.3-44.9); Hemoglobin 10.7 g/dL (11.5-15.4); Immature Platelets 3.4 % (1.1-6.1); Mean Corpuscular HGB Conc 31.6 g/dL (31.6-35.5); Mean Corpuscular Hemoglobin 25.8 pg (28.0-33.3); Mean Corpuscular Volume 81.7 fL (83.0-100.0); Monocytes # 0.1 K/mcL (0.0-1.3); Platelet Count 129 K/mcL (140-400); Red Blood Count 4.15 M/mcL (3.82-4.97); Red Cell Distribution Width 17.4 % (11.5-14.5)
[2017-01-01 07:13] LABS: Calcium 8.6 mg/dL (8.6-10.8); Potassium 4.6 mEq/L (3.5-4.5)
[2017-01-01 07:17] LABS: Platelet Estimate Normal (Normal)
[2017-01-01] MEDS: Insulin LISPRO 300 UNITS/3 ML VIAL SQ SCH ×3 (08:30→16:07)
[2017-01-01] MEDS: Nicotine 21 MG PATCH.TD24 TD SCH (08:35)
[2017-01-01] MEDS: Insulin DETEMIR 100 UNIT/ML X5UNITS SQ SCH ×2 (08:35→20:39)
[2017-01-01] MEDS ORDERED: 0.9 % Sodium Chloride 250 ML IVC PRN (08:52)
[2017-01-01 08:53] LABS: Lymphocytes # 0.4 K/mcL (0.6-4.6); Neutrophils # 6.6 K/mcL (1.6-8.9)
[2017-01-01 08:54] LABS: Burr Cells 2+ (Not Present); Macrocytosis Present (Not Present)
--- NOTE | 2017-01-01 10:57 | Nephrology Consult Note ---
Date of Encounter: 01/01/17 Time of Encounter: 09:15 Assessment and Plan (1) ESRD (end stage renal disease) on dialysis Current Visit: No Status: Chronic HD today Next HD planned for Wednesday. Continue home binders. Renal protective strategy PNA as per primary Thank you for consulting the [facility] group. Will be available this weekend, if needed. (2) Acute exacerbation of chronic obstructive airways disease Current Visit: Yes Status: Acute (3) Edema Current Visit: No Status: Acute Qualifiers: Edema type: generalized Qualified Code(s): R60.1 - Generalized edema History of Present Illness - Reason for Consult Consult date: 01/01/17 end stage renal disease Requesting physician: Juan Daniel Mendoza - Chief Complaint ESRD - History of Present Illness Ms. Riley is a 61 year old female well known to our practice with a PMH of diabetes, GERD, HTN, COPD, CAD, fibramyalgia, CHF, [place], peripheral vascular disease, and ESRD on HD M,, at [facility] who was readmitted for hypoxia and dyspnea. She last dialyzed on Wednesday here at [place]. On she went to an Orthopedic appt for her recently injured right wrist. On Wednesday she had missed her dialysis treatment for fear of being exposed to other sick contacts. As the day progressed, she has become more and more short of breath and noted some increase in edema as well. She still reports a productive cough with thick phlegm and mucus, short of breath, but less low-grade fevers. She denied N/V/D, dysuria, cramping or chest pain. Edema persists, she affirmed. No uremic symptoms were affirmed. Nephrology has been consulted to manage her dialysis while hospitalized. Past Med Surg Social Fam HX - Past Medical History Medical history: arthritis, atrial fibrillation, CHF, COPD, coronary artery disease, CVA, DVT, diabetes, dialysis, fibromyalgia, GERD, hyperlipidemia, hypertension, kidney stones, migraine, myocardial infarction, osteoporosis, peripheral artery disease, renal disease, other Psychiatric history: anxiety - Past Surgical History Surgical History: angioplasty/stent, appendectomy, cholecystectomy, coronary bypass (CABG), hysterectomy, knee replacement, other, IVC filter - Social History Smoking Status: Current every day smoker Packs per day: 1 Smokeless Tobacco Status: No Alcohol use: none Drug use: none - Family History Father Living Status: Hx Family Cardiac Disorders: Yes Hx Family Endocrine Disorder: Yes Mother Living Status: Still Living Hx Family Respiratory Disorders: Yes (end stage copd) Medications and Allergies Amitriptyline [Elavil] 100 mg PO HS 05/11/15 [History] Clopidogrel [Plavix] 75 mg PO DAILY 05/11/15 [History] Ergocalciferol (VITAMIN D2) [Vitamin D2 (50,000 UNIT)] 50,000 units PO TH #0 [History] Omeprazole [PriLOSEC] 20 mg PO BID 05/11/15 [History] Rosuvastatin [Crestor] 40 mg PO HS 05/11/15 [History] Sevelamer [Renvela] 800 mg PO TIDWM 05/11/15 [History] Albuterol Neb [AccuNeb] 3 ml IH Q6H PRN 06/12/15 [History] Aripiprazole [Abilify] 10 mg PO HS 06/12/15 [History] Colestipol HCl [Colestid] 1 gm PO BID 06/12/15 [History] Sennosides [Senna] 8.6 mg PO BID 06/12/15 [History] Carvedilol 12.5 mg PO BID 10/28/15 [History] HydrALAZINE 50 mg PO BID 12/30/15 [History] Amlodipine [Norvasc] 5 mg PO DAILY 06/09/16 [History] Insulin Glargine,Hum.rec.anlog [Lantus Solostar] 60 unit SQ BID 06/09/16 [ History] Budesonide/Formoterol 160/4.5 [Symbicort 160/4.5] 2 puff IH BIDR inhaler [Rx] Gabapentin [Neurontin] 200 mg PO TID 30 Days 06/18/16 [Rx] Calcium Acetate [Phos-LO] 667 mg PO TIDWM 09/06/16 [History] Furosemide [Lasix] 80 mg PO BID 09/06/16 [History] Insulin LISPRO [Humalog] 20 unit SQ TIDWM 09/06/16 [History] Metolazone [Zaroxolyn] 2.5 mg PO MOWEFR 09/06/16 [History] Tiotropium [place] [Spiriva] 1 cap IH DAILY 11/15/16 [History] OxyCODONE/APAP 10/325 [Percocet 10/325 MG] 1 each PO Q6H PRN #10 tablet [Rx] Albuterol Sulfate [Ventolin Hfa] 2 puff IH Q4H PRN 12/29/16 [History] Ciprofloxacin HCl [Cipro] 250 mg PO BID 12/29/16 [History] Ondansetron ODT [Zofran ODT] 4 mg SL Q8HR PRN 12/29/16 [History] Acetaminophen w/Cod 300-30 mg [Tylenol w/Codeine #3] 1 tab PO Q6HR PRN #12 tablet 12/30/16 [Rx] Benzonatate [Tessalon] 200 mg PO TID PRN #40 capsule 12/30/16 [Rx] Guaifenesin [Guaifenesin ER] 1,200 mg PO BID #10 tab.er.12h 12/30/16 [Rx] Levofloxacin 500 mg PO Q48H #5 tablet 12/30/16 [Rx] Oxycodone HCl [Oxycontin] 60 mg PO Q12H 12/31/16 [History] Allergies No Known Allergies Allergy (Verified 12/28/16 19:00) Review of Systems All Systems: reviewed and no additional remarkable complaints except as stated Exam - Vital Signs Vital signs: Initial Vital Signs Temp Pulse Resp BP Pulse Ox 100.5 F H 102 24 150/73 100 12/31/16 18:19 12/31/16 18:19 12/31/16 18:19 12/31/16 18:19 12/31/16 18:19 Vital Signs - Last 8 Hours Temp Pulse Resp BP Pulse Ox 01/01/17 08:29 94 L 01/01/17 07:55 97.5 F L 81 16 129/70 94 L 01/01/17 05:29 97.5 F L 80 12 111/71 96 Intake and Output 12/31/16 01/01/17 01/01/17 23:59 07:59 15:59 Intake Total 580 / 580 Output Total 200 / 200 Balance -200 / -200 580 / 580 Intake: IV Fluids 100 / 100 Rocephin 1,000 MG In 100 / 100 Dextrose 5% (Minibag+) 100 ML 100 ML @ 200 mls/ hr IVPB Q24H [facility] Rx#: [id number] Oral 480 / 480 Output: Straight Cath 200 / 200 Other: Meal Breakfast Percent of Meal Consumed 5% - General Appearance Exam: General appearance: Present: well-developed, well-nourished, appears started age , obese EENT: Present: ATNC, PERRL, mucous membranes moist Neck: Present: supple Respiratory: Present: clear Cardiology: Present: edema (1-2 pretibial pitting edema b/l ), normal S1, normal S2 Dialysis Vascular Access: Venous Catheter (RIJ TDC with the dressing appearing C /D/I) Gastrointestinal: Present: normoactive bowel sounds, no tenderness, no guarding Integumentary: Present: no rash, warm and dry Neurologic: Present: no focal deficit, no asterixis, alert and oriented x3 Musculoskeletal: Present: no cyanosis, no clubbing Psychiatric: Present: mood/affect appropriate, cooperative Results - Lab Results 01/01/17 05:53 01/01/17 06:51 Most recent lab results ABG pH 7.43 pH Units (7.32-7.45) 12/31/16 19:05 ABG pCO2 48 mmHg (35-45) H 12/31/16 19:05 ABG pO2 51 mmHg (85-104) L 12/31/16 19:05 ABG HCO3 31.9 mEQ/L (21-27) H 12/31/16 19:05 ABG O2 Saturation 87 % (95-98) L 12/31/16 19:05 Calcium 8.6 mg/dL (8.6-10.8) 01/01/17 06:51 Phosphorus 4.2 mg/dL (2.3-4.7) 12/31/16 19:07 Magnesium 1.8 mg/dL (1.6-2.6) 12/31/16 19:07 I reviewed the above autogenerated labs, meds, imaging, vitals, history. I also reviewed medical records including outside medical records from [facility]. Consult Discharge Plan - Plan Referrals: Tristen Quintana MD [Primary Care Provider] - 01/06/17 5:00 pm
--- NOTE | 2017-01-01 14:21 | Internal Med Progress Note ---
Date of Encounter: 01/01/17 Time of Encounter: 14:19 - Assessment and plan (1) Diabetes Current Visit: No Status: Chronic Assessment and plan: chronic Qualifiers: Diabetes mellitus type: type 2 Diabetes mellitus complication status: with kidney complications Diabetes mellitus complication detail: with chronic kidney disease Diabetes mellitus senior care insulin use: with senior care use Chronic kidney disease stage: on chronic dialysis Qualified Code(s): E11.22 - Type 2 diabetes mellitus with diabetic chronic kidney disease; N18.6 - End stage renal disease; Z79.4 - intermediate accountant (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 of insulin; Z99.2 - Dependence on renal dialysis (2) CAD (coronary artery disease) Current Visit: No Status: Chronic Assessment and plan: no chest pain Qualifiers: Coronary Disease-Associated Artery/Lesion type: [place] artery [place] vs. transplanted heart: [place]ine heart Associated angina: without angina Qualified Code(s): I25.10 - Atherosclerotic heart disease of [place] coronary artery without angina pectoris (3) COPD (chronic obstructive pulmonary disease) Current Visit: No Status: Chronic Assessment and plan: acute on chronic copd exercebation stable clinically Qualifiers: COPD type: emphysema Emphysema type: unspecified Qualified Code(s): J43.9 - Emphysema, unspecified (4) Morbid (severe) obesity due to excess calories Current Visit: No Status: Chronic Assessment and plan: chronic (5) UTI (urinary tract infection) Current Visit: No Status: Acute Assessment and plan: on rocephin Qualifiers: Urinary tract infection type: acute cystitis Hematuria presence: without hematuria Qualified Code(s): N30.00 - Acute cystitis without hematuria (6) ESRD (end stage renal disease) Current Visit: No Status: Chronic Assessment and plan: on dialysis receiving dialysis at present (7) Anemia Current Visit: No Status: Chronic Qualifiers: Anemia type: other cause Other causes of anemia: chronic disease, kidney Qualified Code(s): N18.9 - Chronic kidney disease, unspecified; D63.1 - Anemia in chronic kidney disease - Subjective Interval history: Patient with history of COPD on home , diabetes, obesity, end-stage disease on dialysis, atrial fibrillation, CAD, CVA, high cholesterol, hypertension, patient was admitted with increased shortness of breath and a nonproductive cough x ray does not show pneumonia patient undergoing dialysis at present also have UtI presented on the Rocephin has mildly elevated troponin and not due to acute mi - Constitutional Vitals: Temp Pulse Resp BP Pulse Ox 97.5 F L 81 20 123/65 94 L 01/01/17 10:00 01/01/17 07:55 01/01/17 10:00 01/01/17 13:15 01/01/17 08:29 General appearance: Present: cooperative, A&O X 3, obese - Eye Eye exam: Present: PERRL, conjuntiva pink, sclera anicteric Pupils: Present: PERRL - Neck Neck exam general surgery: Present: supple, trachea midline. Absent: lymphadenopathy - Respiratory Respiratory exam: Present: CTAB, rhonchi - Cardiovascular Cardiovascular exam: Present: RRR - GI/Abdominal GI/Abdominal exam: Present: normal bowel sounds, soft, no peritoneal signs. Absent: distended, tenderness Internal Medicine: Result - Labs CBC & Chem 7: 01/01/17 05:53 01/01/17 06:51 Labs: Short CBC 01/01/17 Range/Units 05:53 WBC 7.2 (4.3-11.1) K/mcL Hgb 10.7 L D (11.5-15.4) g/dL Hct 33.9 L (35.3-44.9) % Plt Count 129 L (140-400) K/mcL Neutrophils # 6.6 (1.6-8.9) K/mcL BMP 01/01/17 06:51 Sodium 131 L Potassium 4.6 H D Chloride 91 L Carbon Dioxide 23 BUN 71 H D Creatinine 3.41 H Glucose 414 H Calcium 8.6 Urine 01/01/17 Range/Units 02:15 Urine Color Yellow (Yellow) Urine Clarity Cloudy A (Clear) Urine pH 5.5 (5.0-8.0) pH Units Ur Specific [place] 1.020 (1.010-1.025) Urine Protein >=300 H (Neg-Trace) mg/dL Urine Glucose (UA) Normal (Normal) mg/dL - ABG Interpretation ABG results: ABG ABG pH 7.43 pH Units (7.32-7.45) 12/31/16 19:05 ABG pCO2 48 mmHg (35-45) H 12/31/16 19:05 ABG pO2 51 mmHg (85-104) L 12/31/16 19:05 ABG O2 Saturation 87 % (95-98) L 12/31/16 19:05 PT/INR, D-dimer PT 11.9 Seconds (9.4-12.1) 12/31/16 19:07 Consult Discharge Plan - Plan Referrals: Tristen Quintana MD [Primary Care Provider] - 01/06/17 5:00 pm
[2017-01-01] MEDS: amLODIPine 5 MG TABLET PO SCH (16:06)
[2017-01-01 17:16] LABS: Hematocrit 39.6 % (35.3-44.9); Hemoglobin 12.5 g/dL (11.5-15.4); Mean Corpuscular HGB Conc 31.6 g/dL (31.6-35.5); Mean Corpuscular Hemoglobin 25.4 pg (28.0-33.3); Mean Corpuscular Volume 80.5 fL (83.0-100.0); Mean Platelet Volume 10.6 fL (9.4-12.4); Platelet Count 147 K/mcL (140-400); Red Blood Count 4.92 M/mcL (3.82-4.97); Red Cell Distribution Width 16.3 % (11.5-14.5)
[2017-01-01] MEDS ORDERED: Benzonatate 100 MG CAPSULE PO PRN (20:27)
[2017-01-01] MEDS ORDERED: Insulin LISPRO 300 UNITS/3 ML VIAL SQ SCH (21:00)
[2017-01-01] MEDS ORDERED: Nystatin POWDER 30 GM BOTTLE TP PRN (22:32)
[2017-01-02] MEDS: Ipratropium/Albuterol Neb 3 ML IH SCH ×2 (04:05→10:21)
[2017-01-02] MEDS: MethylPREDNISolone 40 MG/ML VIAL IVP SCH (05:36)
[2017-01-02] MEDS: Nicotine 21 MG PATCH.TD24 TD SCH (07:48)
[2017-01-02] MEDS: amLODIPine 5 MG TABLET PO SCH (07:48)
[2017-01-02] MEDS: Insulin DETEMIR 100 UNIT/ML X5UNITS SQ SCH (07:48)
[2017-01-02] MEDS: Insulin LISPRO 300 UNITS/3 ML VIAL SQ SCH ×2 (07:49→12:26)
--- NOTE | 2017-01-02 11:05 | Discharge Summary ---
Date of Encounter: 01/02/17 Time of Encounter: 11:03 - Discharge Diagnosis (1) Diabetes Priority: Secondary Status: Chronic Comments: chronic Qualifiers: Diabetes mellitus type: type 2 Diabetes mellitus complication status: with kidney complications Diabetes mellitus complication detail: with chronic kidney disease Diabetes mellitus group home insulin use: with rodent exterminator use Chronic kidney disease stage: on chronic dialysis Qualified Code(s): E11.22 - Type 2 diabetes mellitus with diabetic chronic kidney disease; N18.6 - End stage renal disease; Z79.4 - long-term (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 of insulin; Z99.2 - Dependence on renal dialysis (2) CAD (coronary artery disease) Priority: Secondary Status: Chronic Comments: no chest pain Qualifiers: Coronary Disease-Associated Artery/Lesion type: [place] artery [place] vs. transplanted heart: [place] heart Associated angina: without angina Qualified Code(s): I25.10 - Atherosclerotic heart disease of [place] coronary artery without angina pectoris (3) COPD (chronic obstructive pulmonary disease) Priority: Primary Status: Chronic Comments: acute on chronic clinically much better Qualifiers: COPD type: emphysema Emphysema type: unspecified Qualified Code(s): J43.9 - Emphysema, unspecified (4) Morbid (severe) obesity due to excess calories Priority: Secondary Status: Chronic Comments: chronic (5) UTI (urinary tract infection) Priority: Secondary Status: Acute Comments: no growth Qualifiers: Urinary tract infection type: acute cystitis Hematuria presence: without hematuria Qualified Code(s): N30.00 - Acute cystitis without hematuria (6) ESRD (end stage renal disease) Priority: Secondary Status: Chronic Comments: on dialysis received dialysis yesterday (7) Anemia Priority: Secondary Status: Chronic Qualifiers: Anemia type: other cause Other causes of anemia: chronic disease, kidney Qualified Code(s): N18.9 - Chronic kidney disease, unspecified; D63.1 - Anemia in chronic kidney disease - Discharge Medications Home Medications: Amitriptyline [Elavil] 100 mg PO HS 05/11/15 [History] Clopidogrel [Plavix] 75 mg PO DAILY 05/11/15 [History] Ergocalciferol (VITAMIN D2) [Vitamin D2 (50,000 UNIT)] 50,000 units PO TH #0 [History] Omeprazole [PriLOSEC] 20 mg PO BID 05/11/15 [History] Rosuvastatin [Crestor] 40 mg PO HS 05/11/15 [History] Sevelamer [Renvela] 800 mg PO TIDWM 05/11/15 [History] Albuterol Neb [AccuNeb] 3 ml IH Q6H PRN 06/12/15 [History] Aripiprazole [Abilify] 10 mg PO HS 06/12/15 [History] Colestipol HCl [Colestid] 1 gm PO BID 06/12/15 [History] Sennosides [Senna] 8.6 mg PO BID 06/12/15 [History] Carvedilol 12.5 mg PO BID 10/28/15 [History] HydrALAZINE 50 mg PO BID 12/30/15 [History] Amlodipine [Norvasc] 5 mg PO DAILY 06/09/16 [History] Insulin Glargine,Hum.rec.anlog [Lantus Solostar] 60 unit SQ BID 06/09/16 [ History] Budesonide/Formoterol 160/4.5 [Symbicort 160/4.5] 2 puff IH BIDR inhaler [Rx] Gabapentin [Neurontin] 200 mg PO TID 30 Days 06/18/16 [Rx] Calcium Acetate [Phos-LO] 667 mg PO TIDWM 09/06/16 [History] Furosemide [Lasix] 80 mg PO BID 09/06/16 [History] Insulin LISPRO [Humalog] 20 unit SQ TIDWM 09/06/16 [History] Metolazone [Zaroxolyn] 2.5 mg PO MOWEFR 09/06/16 [History] Tiotropium [place] [Spiriva] 1 cap IH DAILY 11/15/16 [History] OxyCODONE/APAP 10/325 [Percocet 10/325 MG] 1 each PO Q6H PRN #10 tablet [Rx] Albuterol Sulfate [Ventolin Hfa] 2 puff IH Q4H PRN 12/29/16 [History] Ciprofloxacin HCl [Cipro] 250 mg PO BID 12/29/16 [History] Ondansetron ODT [Zofran ODT] 4 mg SL Q8HR PRN 12/29/16 [History] Acetaminophen w/Cod 300-30 mg [Tylenol w/Codeine #3] 1 tab PO Q6HR PRN #12 tablet 12/30/16 [Rx] Benzonatate [Tessalon] 200 mg PO TID PRN #40 capsule 12/30/16 [Rx] Guaifenesin [Guaifenesin ER] 1,200 mg PO BID #10 tab.er.12h 12/30/16 [Rx] Levofloxacin 500 mg PO Q48H #5 tablet 12/30/16 [Rx] Oxycodone HCl [Oxycontin] 60 mg PO Q12H 12/31/16 [History] Allergies/Adverse Reactions: Allergies No Known Allergies Allergy (Verified 12/28/16 19:00) Date of admission: 12/31/16 19:54 Primary care physician: Tristen Quintana MD Consults: 12/31/16 23:20 Consult to Nurse Navigator [CONS] Routine Comment: 12/31/16 23:22 Consult to Occupational Therapy [CONS] Routine Comment: Evaluate, develop and implement POC Consult to Physical Therapy [CONS] Routine Comment: Evaluate, develop and implement POC Consult to Frame Polisher [CONS] Routine Reason for SW Consult: services upon discharge, esrd hd, might need placement 01/01/17 07:00 Consult to Nephrology [CONS] Routine Consulting Provider: Kidney Olivia/MARCO/SWAPNA/MILLIE Reason for Consult: esrd hd Call Completed: No 01/01/17 09:00 Consult to Dialysis [CONS] ONCE Discharging clinician: Burak Soler Anticipated date of discharge: 01/02/17 - Patient Status Disposition: Home, Self-Care Condition: Good Overall status at discharge: patient is back to baseline - Discharge Instructions - Diet and Activity Activity: increase activity as tolerated Diet: advance to your usual diet Hospital course: Ms. Riley is a 61 year old female - Time Spent with Patient Total time spent providing and/or coordinating discharge services: - Constitutional Vitals: Temp Pulse Resp BP Pulse Ox 97.9 F 80 18 132/68 99 01/02/17 07:24 01/02/17 07:24 01/02/17 07:24 01/02/17 07:24 01/02/17 07:58 General appearance: Present: cooperative, A&O X 3, obese
--- NOTE | 2017-01-02 11:52 | Physician Discharge Referral ---
Home Health/Hosp Referral Info Provider in Charge Post Discharge: PCP - Diagnosis (1) Diabetes Status: Chronic (2) CAD (coronary artery disease) Status: Chronic (3) COPD (chronic obstructive pulmonary disease) Status: Chronic (4) Morbid (severe) obesity due to excess calories Status: Chronic (5) UTI (urinary tract infection) Status: Acute (6) ESRD (end stage renal disease) Status: Chronic (7) Anemia Status: Chronic - Respiratory Orders Smoking Cessation: Smoking cessation has been advised. For more information, call the [place] Tobacco Quit Line at 1-772-YPYG-NOW. - Transfer Medications Home Medications: Amitriptyline [Elavil] 100 mg PO HS 05/11/15 [History] Clopidogrel [Plavix] 75 mg PO DAILY 05/11/15 [History] Ergocalciferol (VITAMIN D2) [Vitamin D2 (50,000 UNIT)] 50,000 units PO TH #0 [History] Omeprazole [PriLOSEC] 20 mg PO BID 05/11/15 [History] Rosuvastatin [Crestor] 40 mg PO HS 05/11/15 [History] Sevelamer [Renvela] 800 mg PO TIDWM 05/11/15 [History] Albuterol Neb [AccuNeb] 3 ml IH Q6H PRN 06/12/15 [History] Aripiprazole [Abilify] 10 mg PO HS 06/12/15 [History] Colestipol HCl [Colestid] 1 gm PO BID 06/12/15 [History] Sennosides [Senna] 8.6 mg PO BID 06/12/15 [History] Carvedilol 12.5 mg PO BID 10/28/15 [History] HydrALAZINE 50 mg PO BID 12/30/15 [History] Amlodipine [Norvasc] 5 mg PO DAILY 06/09/16 [History] Insulin Glargine,Hum.rec.anlog [Lantus Solostar] 60 unit SQ BID 06/09/16 [ History] Budesonide/Formoterol 160/4.5 [Symbicort 160/4.5] 2 puff IH BIDR inhaler [Rx] Gabapentin [Neurontin] 200 mg PO TID 30 Days 06/18/16 [Rx] Calcium Acetate [Phos-LO] 667 mg PO TIDWM 09/06/16 [History] Furosemide [Lasix] 80 mg PO BID 09/06/16 [History] Insulin LISPRO [Humalog] 20 unit SQ TIDWM 09/06/16 [History] Metolazone [Zaroxolyn] 2.5 mg PO MOWEFR 09/06/16 [History] Tiotropium [place] [Spiriva] 1 cap IH DAILY 11/15/16 [History] OxyCODONE/APAP 10/325 [Percocet 10/325 MG] 1 each PO Q6H PRN #10 tablet [Rx] Albuterol Sulfate [Ventolin Hfa] 2 puff IH Q4H PRN 12/29/16 [History] Ciprofloxacin HCl [Cipro] 250 mg PO BID 12/29/16 [History] Ondansetron ODT [Zofran ODT] 4 mg SL Q8HR PRN 12/29/16 [History] Acetaminophen w/Cod 300-30 mg [Tylenol w/Codeine #3] 1 tab PO Q6HR PRN #12 tablet 12/30/16 [Rx] Benzonatate [Tessalon] 200 mg PO TID PRN #40 capsule 12/30/16 [Rx] Guaifenesin [Guaifenesin ER] 1,200 mg PO BID #10 tab.er.12h 12/30/16 [Rx] Levofloxacin 500 mg PO Q48H #5 tablet 12/30/16 [Rx] Oxycodone HCl [Oxycontin] 60 mg PO Q12H 12/31/16 [History] Allergies/Adverse Reactions: Allergies No Known Allergies Allergy (Verified 12/28/16 19:00) Certification: Further, I certify that my clinical findings support that this patient is homebound (i.e. absences from home require considerable and taxing effort and are for medical reasons or yazidi services or infrequently or short duration when for other reasons) because: Homebound Reason: Patient requires assistance of a person or device to safely leave home, Severity of cardiac or pulmonary status limits activity tolerance Attestation: My signature below is to certify that this patient is under my care and that I, or nurse practitioner, or a physician's child life assistant working with me, has a face-to -face encounter with this patient.
[2017-01-02 11:57] VITALS: BP 138/72
--- NOTE | 2017-01-03 07:32 | Electrocardiograph Report ---
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
== END 2017-01-02 12:40 | disposition home or self-care (01) ==
LOC: 2ANU 18:17 → EMEROO 18:17 → 2ANU 20:56
PROVIDERS: ADMIT Internal Medicine Cardiovascular Disease; ATTEND Internal Medicine

== ENCOUNTER 2017-01-10 17:10 | Inpatient (IN) ==
[2017-01-10] MEDS ORDERED: Ipratropium/Albuterol Neb 3 ML IH ONE (17:18)
[2017-01-10] MEDS ORDERED: methylPREDNISolone 125 MG/2 ML VIAL IV ONE (17:18)
[2017-01-10] MEDS ORDERED: Furosemide 40 MG/4 ML VIAL IVP ONE (17:20)
--- NOTE | 2017-01-10 17:31 | Emergency Department Note ---
Disposition Clinical Impression: COPD with acute bronchitis Dyspnea Qualifiers: Dyspnea type: shortness of breath Qualified Code(s): R06.02 - Shortness of breath Congestive heart failure (CHF) Qualifiers: Congestive heart failure type: unspecified congestive heart failure type Congestive heart failure chronicity: unspecified congestive heart failure chronicity Qualified Code(s): I50.9 - Heart failure, unspecified Disposition: Admitted As Inpatient Forms: ED Satisfaction Letter SOB HPI - General Chief Complaint: ED Shortness of Breath/Dyspnea Stated Complaint: SOB Time Seen by Provider: 01/10/17 17:13 Source: patient, EMS Limitations: no limitations Nursing Notes Reviewed: Yes Vital Signs Reviewed: Yes - History of Present Illness Pt Subjective Complaint: shortness of breath, anxiety Onset (ago): day(s) (3) Context: recent illness Severity: moderate Consistency/Duration: intermittent Improves with: oxygen, rest, bronchodilators Known history of: COPD, congestive heart failure Associated symptoms: Denies: chest pain, fever, nausea/vomiting Treatment prior to arrival: oxygen, bronchodilator Cough present: Yes Cough Description: Involuntary Cough Frequency: Intermittent Sputum production: No - Related Data Home Medications Medication Instructions Recorded Confirmed Amitriptyline [Elavil] 100 mg PO HS 05/11/15 12/31/16 Clopidogrel [Plavix] 75 mg PO DAILY 05/11/15 12/31/16 Ergocalciferol (VITAMIN D2) 50,000 units PO TH #0 05/11/15 12/31/16 [Vitamin D2 (50,000 UNIT)] Omeprazole [PriLOSEC] 20 mg PO BID 05/11/15 12/31/16 Rosuvastatin [Crestor] 40 mg PO HS 05/11/15 12/31/16 Sevelamer [Renvela] 800 mg PO TIDWM 05/11/15 12/31/16 Albuterol Neb [AccuNeb] 3 ml IH Q6H PRN 06/12/15 12/31/16 Aripiprazole [Abilify] 10 mg PO HS 06/12/15 12/31/16 Colestipol HCl [Colestid] 1 gm PO BID 06/12/15 12/31/16 Sennosides [Senna] 8.6 mg PO BID 06/12/15 12/31/16 Carvedilol 12.5 mg PO BID 10/28/15 12/31/16 HydrALAZINE 50 mg PO BID 12/30/15 12/31/16 Amlodipine [Norvasc] 5 mg PO DAILY 06/09/16 12/31/16 Insulin Glargine,Hum.rec.anlog 60 unit SQ BID 06/09/16 12/31/16 [Lantus Solostar] Calcium Acetate [Phos-LO] 667 mg PO TIDWM 09/06/16 12/31/16 Furosemide [Lasix] 80 mg PO BID 09/06/16 12/31/16 Insulin LISPRO [Humalog] 20 unit SQ TIDWM 09/06/16 12/31/16 Metolazone [Zaroxolyn] 2.5 mg PO MOWEFR 09/06/16 12/31/16 Tiotropium [place] [Spiriva] 1 cap IH DAILY 11/15/16 12/31/16 Albuterol Sulfate [Ventolin Hfa] 2 puff IH Q4H PRN 12/29/16 12/31/16 Ciprofloxacin HCl [Cipro] 250 mg PO BID 12/29/16 12/31/16 Ondansetron ODT [Zofran ODT] 4 mg SL Q8HR PRN 12/29/16 12/31/16 Oxycodone HCl [Oxycontin] 60 mg PO Q12H 12/31/16 12/31/16 Previous Rx's Medication Instructions Recorded Budesonide/Formoterol 160/4.5 2 puff IH BIDR inhaler 06/18/16 [Symbicort 160/4.5] Gabapentin [Neurontin] 200 mg PO TID 30 Days 06/18/16 OxyCODONE/APAP 10/325 [Percocet 1 each PO Q6H PRN #10 tablet 11/19/16 10/325 MG] Acetaminophen w/Cod 300-30 mg 1 tab PO Q6HR PRN #12 tablet 12/30/16 [Tylenol w/Codeine #3] Benzonatate [Tessalon] 200 mg PO TID PRN #40 capsule 12/30/16 Guaifenesin [Guaifenesin ER] 1,200 mg PO BID #10 tab.er.12h 12/30/16 Levofloxacin 500 mg PO Q48H #5 tablet 12/30/16 Allergies Allergy/AdvReac Type Severity Reaction Status Date / Time No Known Allergies Allergy Verified 12/28/16 19:00 All systems ED: reviewed and negative except as stated. Constitutional: Denies: fever, chills Respiratory: Reports: dyspnea, wheezes Gastrointestinal: Denies: nausea, vomiting Past Medical History - Past Medical History Source: patient, nursing notes reviewed Medical history: Reports: arthritis, atrial fibrillation, CHF, COPD, coronary artery disease, CVA, DVT, diabetes, dialysis, fibromyalgia, GERD, hyperlipidemia , hypertension, kidney stones, migraine, myocardial infarction, osteoporosis, peripheral artery disease, renal disease, other Surgical history: Reports: angioplasty/stent, appendectomy, cholecystectomy, coronary bypass (CABG), hysterectomy, knee replacement, other, IVC filter Psychiatric history: Reports: anxiety ACCESS ASSOC history: Reports: other - Social History Smoking Status: Current every day smoker Smokeless Tobacco Status: No Alcohol use: Reports: none Drug use: Reports: none Physical Exam - General Limitations: no limitations General appearance: alert - Head Head exam: atraumatic, normocephalic, normal inspection - Eye Eye exam: Present: normal appearance, PERRL, EOMI - Expanded Eye Exam Pupils: Left: reactive - ENT ENT exam: normal exam, normal oropharynx, mucous membranes moist - Expanded ENT Exam External ear exam: Present: normal external inspection Mouth exam: Present: normal external inspection Teeth exam: Present: normal inspection Throat exam: Present: normal inspection - Neck Neck exam: Present: normal inspection, full ROM, trachea midline - Chest Chest inspection: Present: normal inspection, symmetric chest wall rise - Respiratory Respiratory exam: Present: respiratory distress (mild tachypnea), wheezes, accessory muscle use, other (rhonchi/rales scattered) - Cardiovascular Cardiovascular exam: Present: regular rate, normal rhythm, normal heart sounds - Abdominal Exam Abdominal exam: Present: soft, Non-Tender. Absent: tenderness, distention, guarding, rebound, rigidity - Extremities Exam Extremities exam: Present: normal inspection, full ROM. Absent: tenderness, pedal edema - Expanded Upper Extremity Exam Shoulder exam: Present: normal inspection, full ROM Arm exam: Present: normal inspection, full ROM Elbow exam: Present: normal inspection, full ROM Forearm/Wrist exam: Present: normal inspection, full ROM Hand exam: Present: normal inspection, full ROM Vascular exam: Normal: capillary refill, radial pulse - Expanded Lower Extremity Exam Hip/Pelvis exam: Present: normal inspection, full ROM Upper leg exam: Present: normal inspection, full ROM Knee exam: Present: normal inspection, full ROM Lower leg exam: Present: normal inspection, full ROM Ankle exam: Present: normal inspection, full ROM Foot/toe exam: Present: normal inspection, full ROM Neurovascular/Tendon exam: Absent: motor deficit, sensory deficit, tendon deficit - Back Exam Back exam: Present: normal inspection, full ROM. Absent: tenderness - Neurological Exam Neurological exam: Present: alert, oriented X3 - Expanded Neurological Exam Patient oriented to: Present: person, place, time Coma Scale Eye Opening: Spontaneous Coma Scale Motor Response: Obeys Commands Coma Scale Verbal Response: Oriented Coma Scale Total: 15 - Psychiatric Psychiatric exam: Present: normal affect, normal mood - Skin Skin exam: Present: warm, dry, intact, normal color Course - Consultations Consultation #1: dr. malagon, admit to tele, hold abx until CT scan results Time: 19:57 Vital Signs Temperature 98.3 F 01/10/17 17:11 Pulse Rate 93 01/10/17 17:11 Respiratory Rate 24 01/10/17 17:11 Blood Pressure 159/65 01/10/17 17:11 O2 Sat by Pulse Oximetry 100 01/10/17 17:11 Temperature 98.3 F 01/10/17 17:11 Pulse Rate 91 01/10/17 18:56 Respiratory Rate 24 01/10/17 18:56 Blood Pressure 205/95 01/10/17 18:56 O2 Sat by Pulse Oximetry 100 01/10/17 18:56 Oxygen Delivery Oxygen Delivery Nasal Cannula Shortness of Breath/Dyspnea - Differential Diagnosis Likely: acute exacerbation of chronic obstructive airways disease, congestive heart failure, pneumonia, asthma with exacerbation, pulmonary embolism, pneumothorax, arrhythmia - Medical Records Medical records reviewed: Yes I reviewed the patient's medical records. - Lab Data Lab results reviewed: Yes I reviewed the patient's lab results. Result diagrams: 01/10/17 17:57 01/10/17 17:57 Lab Results 01/10/17 01/10/17 01/10/17 Range/Units 17:57 17:57 17:57 WBC 34.3 H* (4.3-11.1) K/mcL RBC 4.54 (3.82-4.97) M/mcL Hgb 11.4 L (11.5-15.4) g/dL Hct 37.7 (35.3-44.9) % MCV 83.0 (83.0-100.0) fL MCH 25.1 L (28.0-33.3) pg MCHC 30.2 L (31.6-35.5) g/dL RDW 15.9 H (11.5-14.5) % Plt Count 207 (140-400) K/mcL MPV 11.3 (9.4-12.4) fL Seg Neutrophils % 92.0 % Lymphocytes % 5.0 % Monocytes % 3.0 % Neutrophils # 31.6 H (1.6-8.9) K/mcL Lymphocytes # 1.7 (0.6-4.6) K/mcL Monocytes # 1.0 (0.0-1.3) K/mcL PT 10.5 (9.4-12.1) Seconds INR 1.0 APTT 24.0 L (26.0-36.0) Seconds Sodium 128 L (136-145) mEq/L Potassium 3.8 (3.5-4.5) mEq/L Chloride 93 L (98-109) mEq/L Carbon Dioxide 17 L (19-29) mEq/L BUN 67 H (7-20) mg/dL Creatinine 2.98 H (0.57-1.11) mg/dL Est GFR ( Amer) 19 L (> 60) Est GFR (Non-Af Amer) 16 L (> 60) BUN/Creatinine Ratio 22 (6-26) Glucose 531 H* (70-99) mg/dL Calculated Osmolality 309 H (280-300) Calcium 9.0 (8.6-10.8) mg/dL Troponin I (0-0.03) ng/mL B-Natriuretic Peptide (0-100) pg/mL 01/10/17 01/10/17 Range/Units 17:57 17:57 WBC (4.3-11.1) K/mcL RBC (3.82-4.97) M/mcL Hgb (11.5-15.4) g/dL Hct (35.3-44.9) % MCV (83.0-100.0) fL MCH (28.0-33.3) pg MCHC (31.6-35.5) g/dL RDW (11.5-14.5) % Plt Count (140-400) K/mcL MPV (9.4-12.4) fL Seg Neutrophils % % Lymphocytes % % Monocytes % % Neutrophils # (1.6-8.9) K/mcL Lymphocytes # (0.6-4.6) K/mcL Monocytes # (0.0-1.3) K/mcL PT (9.4-12.1) Seconds INR APTT (26.0-36.0) Seconds Sodium (136-145) mEq/L Potassium (3.5-4.5) mEq/L Chloride (98-109) mEq/L Carbon Dioxide (19-29) mEq/L BUN (7-20) mg/dL Creatinine (0.57-1.11) mg/dL Est GFR ( Amer) (> 60) Est GFR (Non-Af Amer) (> 60) BUN/Creatinine Ratio (6-26) Glucose (70-99) mg/dL Calculated Osmolality (280-300) Calcium (8.6-10.8) mg/dL Troponin I 0.02 (0-0.03) ng/mL B-Natriuretic Peptide 236 H (0-100) pg/mL - Radiology Data Radiology results reviewed: Yes I reviewed the patient's radiology results.
[2017-01-10 18:08] LABS: Hematocrit 37.7 % (35.3-44.9); Hemoglobin 11.4 g/dL (11.5-15.4); Mean Corpuscular HGB Conc 30.2 g/dL (31.6-35.5); Mean Corpuscular Hemoglobin 25.1 pg (28.0-33.3); Mean Platelet Volume 11.3 fL (9.4-12.4); Neutrophils # 31.6 K/mcL (1.6-8.9); Platelet Count 207 K/mcL (140-400); Red Blood Count 4.54 M/mcL (3.82-4.97); Red Cell Distribution Width 15.9 % (11.5-14.5)
[2017-01-10 18:12] LABS: Prothrombin Time 10.5 Seconds (9.4-12.1)
[2017-01-10 18:18] LABS: Potassium 3.8 mEq/L (3.5-4.5)
[2017-01-10] MEDS ORDERED: Insulin LISPRO 300 UNITS/3 ML VIAL SQ STA (18:31)
[2017-01-10 18:57] LABS: Lymphocytes # 1.7 K/mcL (0.6-4.6)
[2017-01-10] MEDS ORDERED: cloNIDine HCl 0.1 MG TABLET PO ONE (19:48)
[2017-01-10] MEDS ORDERED: Ondansetron 4 MG/2 ML VIAL IV ONE (20:05)
[2017-01-10] MEDS ORDERED: *HR* Morphine 2 MG/ML SYRINGE IV ONE (20:05)
[2017-01-10 20:24] LABS: ABG Base Excess -1.2 mEq/L (-2.0 to 3.0); ABG HCO3 22.4 mEQ/L (21-27); ABG Oxygen Saturation 100 % (95-98); ABG PCO2 33 mmHg (35-45); ABG PH 7.44 pH Units (7.32-7.45); ABG PO2 159 mmHg (85-104); ABG TCO2 23.4 mEq/L (20-26)
[2017-01-10 20:25] LABS: Blood Gas Liter Flow 2 L/MIN
--- NOTE | 2017-01-10 21:19 | Internal Med History&Physical ---
Date of Encounter: 01/10/17 Time of Encounter: 21:17 Assessment and Plan (1) COPD with acute bronchitis Current visit: Yes Status: Acute COPD with tomographic evidence of basal infiltrates, possible aspiration pna. Prior CT 2 months ago did not reveal infiltrates. Will treat with iv unasyn for now. Hyperglycemia and leukocytosis likely induced by steroids, she has been taking prednisone 40 mg daily. Continue with nebulizer treatments. DVT/GI prophylaxis. Oxygen therapy. (2) Congestive heart failure (CHF) Current visit: Yes Status: Acute Resume home meds. Qualifiers: Congestive heart failure type: unspecified congestive heart failure type Congestive heart failure chronicity: unspecified congestive heart failure chronicity Qualified Code(s): I50.9 - Heart failure, unspecified (3) Hyperglycemia due to type 2 diabetes mellitus Current visit: No Status: Acute Insulin therapy. Accuchecks. Qualifiers: Diabetes mellitus rat exterminator insulin use: with rat exterminator use Qualified Code( s): E11.65 - Type 2 diabetes mellitus with hyperglycemia; Z79.4 - medical terminologist ( 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 of insulin (4) Leukocytosis Current visit: No Status: Acute Likely induced by steroids. Qualifiers: Leukocytosis type: unspecified Qualified Code(s): D72.829 - Elevated white blood cell count, unspecified (5) ESRD (end stage renal disease) Current visit: No Status: Chronic HD as per nephrology. (6) Morbid (severe) obesity due to excess calories Current visit: No Status: Chronic Internal Medicine - H&P: HPI Chief complaint: sob Admitted From: Emergency Dept Plans for Post Hospital Care: Home History of present illness: Ms. Riley is a 61 year old female with past medical history of COPD on long- term oxygen therapy, diabetes, end-stage renal disease on hemodialysis Wednesday and Wednesday, recently discharged from this facility 7 days ago. Presented to our emergency Department complaining of one week of progressive shortness of breath, productive cough and subjective fever. She was found to have a significant leukocytosis along with CT scan findings consistent with aspiration pneumonia. She was also found hyperglycemic with a glucose over 500. Of note, the patient states that she has been taking prednisone 40 mg daily. This is her fourth hospital admission in 2 months. The patient was admitted for further management and workup. Past Med Surg Social Fam HX - Past Medical History Medical history: arthritis, atrial fibrillation, CHF, COPD, coronary artery disease, CVA, DVT, diabetes, dialysis, fibromyalgia, GERD, hyperlipidemia, hypertension, kidney stones, migraine, myocardial infarction, osteoporosis, peripheral artery disease, renal disease, other Psychiatric history: anxiety - Past Surgical History Surgical History: angioplasty/stent, appendectomy, cholecystectomy, coronary bypass (CABG), hysterectomy, knee replacement, other, IVC filter - Social History Smoking Status: Current every day smoker Smokeless Tobacco Status: No Alcohol use: none Drug use: none - Family History Father Living Status: Hx Family Cardiac Disorders: Yes Hx Family Endocrine Disorder: Yes Mother Living Status: Still Living Hx Family Respiratory Disorders: Yes (end stage copd) Internal Medicine - H&P: Meds Amitriptyline [Elavil] 100 mg PO HS 05/11/15 [History] Clopidogrel [Plavix] 75 mg PO DAILY 05/11/15 [History] Ergocalciferol (VITAMIN D2) [Vitamin D2 (50,000 UNIT)] 50,000 units PO TH #0 [History] Omeprazole [PriLOSEC] 20 mg PO BID 05/11/15 [History] Rosuvastatin [Crestor] 40 mg PO HS 05/11/15 [History] Sevelamer [Renvela] 800 mg PO TIDWM 05/11/15 [History] Albuterol Neb [AccuNeb] 3 ml IH Q6H PRN 06/12/15 [History] Aripiprazole [Abilify] 10 mg PO HS 06/12/15 [History] Colestipol HCl [Colestid] 1 gm PO BID 06/12/15 [History] Sennosides [Senna] 8.6 mg PO BID 06/12/15 [History] Carvedilol 12.5 mg PO BID 10/28/15 [History] HydrALAZINE 50 mg PO BID 12/30/15 [History] Amlodipine [Norvasc] 5 mg PO DAILY 06/09/16 [History] Insulin Glargine,Hum.rec.anlog [Lantus Solostar] 60 unit SQ BID 06/09/16 [ History] Budesonide/Formoterol 160/4.5 [Symbicort 160/4.5] 2 puff IH BIDR inhaler [Rx] Gabapentin [Neurontin] 200 mg PO TID 30 Days 06/18/16 [Rx] Calcium Acetate [Phos-LO] 667 mg PO TIDWM 09/06/16 [History] Furosemide [Lasix] 80 mg PO BID 09/06/16 [History] Insulin LISPRO [Humalog] 20 unit SQ TIDWM 09/06/16 [History] Metolazone [Zaroxolyn] 2.5 mg PO MOWEFR 09/06/16 [History] Tiotropium [place] [Spiriva] 1 cap IH DAILY 11/15/16 [History] OxyCODONE/APAP 10/325 [Percocet 10/325 MG] 1 each PO Q6H PRN #10 tablet [Rx] Albuterol Sulfate [Ventolin Hfa] 2 puff IH Q4H PRN 12/29/16 [History] Ondansetron ODT [Zofran ODT] 4 mg SL Q8HR PRN 12/29/16 [History] Acetaminophen w/Cod 300-30 mg [Tylenol w/Codeine #3] 1 tab PO Q6HR PRN #12 tablet 12/30/16 [Rx] Benzonatate [Tessalon] 200 mg PO TID PRN #40 capsule 12/30/16 [Rx] Guaifenesin [Guaifenesin ER] 1,200 mg PO BID #10 tab.er.12h 12/30/16 [Rx] Oxycodone HCl [Oxycontin] 60 mg PO Q12H 12/31/16 [History] Allergies No Known Allergies Allergy (Verified 12/28/16 19:00) All Systems PM: A 10-system review of systems was performed and is negative for pertinent findings except as documented above in the HPI. - Constitutional Constitutional: as per HPI, no chills, no fever(s), no night sweats - EENT Eyes: as per HPI, no change in vision, no discharge, no pain, no photophobia Ears: as per HPI, no ear discharge, no ear pain, no tinnitus Nose, mouth and throat: as per HPI, no dysphagia, no nasal discharge, no neck pain, no sore throat - Breasts Breasts: as per HPI - Cardiovascular Cardiovascular ROS IM: as per HPI, no chest pain, no diaphoresis, no dyspnea, no lightheadedness, no palpitations, no syncope - Respiratory Respiratory: as per HPI, no cough, no dyspnea, no wheezing, no excessive phlegm production - Gastrointestinal Gastrointestinal: as per HPI, no abdominal pain, no diarrhea, no hematemesis, no hematochezia, no melena, no nausea, no vomiting - Genitourinary Genitourinary: as per HPI, no change in urinary stream, no dysuria, no flank pain, no hematuria Menstruation: as per HPI - Musculoskeletal Musculoskeletal ROS IM: as per HPI, no numbness, no tingling - Integumentary Integumentary IM: as per HPI, no rash, no unusual bruising - Neurological Neurological ROS: as per HPI, no confusion, no convulsions, no focal weakness, no numbness, no tingling, no tremor(s) - Psychiatric Psychiatric: as per HPI - Endocrine Endocrine IM: as per HPI - Hematologic/Lymphatic Hematologic/Lymphatic: as per HPI, no easy bruising - Allergic/Immunologic Allergic/Immunologic: as per HPI - Constitutional Vitals: Temp Pulse Resp BP Pulse Ox 98.3 F 85 26 161/71 100 01/10/17 17:11 01/10/17 20:05 01/10/17 20:46 01/10/17 20:46 01/10/17 20:05 General appearance: Present: cooperative, mild distress, A&O X 3 - Head Head exam: Present: atraumatic, normocephalic - Eye Eye exam: Present: PERRL, conjuntiva pink, sclera anicteric Pupils: Present: PERRL - Neck Neck exam general surgery: Present: supple, trachea midline. Absent: lymphadenopathy - Respiratory Respiratory exam: Present: decreased breath sounds, rhonchi, wheezes. Absent: accessory muscle use, rales - Cardiovascular Cardiovascular exam: Present: RRR, +S1, +S2. Absent: diastolic murmur, gallop, rubs, systolic murmur - GI/Abdominal GI/Abdominal exam: Present: normal bowel sounds, soft, no peritoneal signs. Absent: distended, tenderness - Extremities Exam Extremities exam: Present: pedal edema, warm, radial pulses palpable and symetrical. Absent: calf tenderness, cyanotic - Neurological Exam Neurological exam: Present: CN II-XII intact, oriented X3, no focal deficits. Absent: pronater drift, facial droop, speech deficit - Skin Skin exam: Present: dry, intact Internal Med - H&P Results - Labs CBC & Chem 7: 01/10/17 17:57 01/10/17 17:57
[2017-01-10] MEDS ORDERED: Dextrose Gel 15 GM PO PRN ×2 (21:53)
[2017-01-10] MEDS ORDERED: *HR* Dextrose 50 % in Water (Syg) 50 ML SYRINGE IVP PRN (21:53)
[2017-01-10] MEDS ORDERED: Acetaminophen 325 MG TABLET PO PRN (21:53)
[2017-01-10] MEDS ORDERED: Albuterol 2.5 MG/3 ML NEBULIZER IH PRN (21:53)
[2017-01-10] MEDS ORDERED: Naloxone 0.4 MG/ML INJ IVP PRN (21:53)
[2017-01-10] MEDS ORDERED: D5% in Water 1,000 ML IVC PRN (21:53)
[2017-01-10] MEDS: Insulin LISPRO 300 UNITS/3 ML VIAL SQ SCH (22:38)
[2017-01-10] MEDS: Insulin DETEMIR 100 UNIT/ML X5UNITS SQ SCH (22:38)
[2017-01-10] MEDS: *HR* Morphine 2 MG/ML SYRINGE IVP PRN (22:41)
[2017-01-10] MEDS: Ampicillin/Sulbactam 3,000 MG in 0.9 % Sodium Chloride Mini Bag 100 ML IVPB SCH (23:52)
[2017-01-10] MEDS: Ipratropium/Albuterol Neb 3 ML IH SCH (23:53)
[2017-01-11] MEDS: *HR* Morphine 2 MG/ML SYRINGE IVP PRN (02:57)
[2017-01-11] MEDS: Ondansetron 4 MG/2 ML VIAL IVP PRN (03:51)
[2017-01-11] MEDS: Ipratropium/Albuterol Neb 3 ML IH SCH ×5 (04:27→23:12)
[2017-01-11 04:53] LABS: Monocytes % 0.7 %
[2017-01-11 04:55] LABS: Basophils % 0.1 %; Hematocrit 37.3 % (35.3-44.9); Hemoglobin 11.3 g/dL (11.5-15.4); Immature Granulocytes % 1.3 % (0-4); Lymphocytes # 0.7 K/mcL (0.6-4.6); Lymphocytes % 2.4 %; Mean Corpuscular HGB Conc 30.3 g/dL (31.6-35.5); Mean Corpuscular Hemoglobin 24.7 pg (28.0-33.3); Mean Corpuscular Volume 81.6 fL (83.0-100.0); Mean Platelet Volume 11.3 fL (9.4-12.4); Monocytes # 0.2 K/mcL (0.0-1.3); Neutrophils # 25.7 K/mcL (1.6-8.9); Platelet Count 189 K/mcL (140-400); Red Blood Count 4.57 M/mcL (3.82-4.97); Red Cell Distribution Width 15.9 % (11.5-14.5); Segmented Neutrophils % 95.5 %
[2017-01-11 04:56] LABS: Prothrombin Time 10.3 Seconds (9.4-12.1)
[2017-01-11 05:15] LABS: Albumin 2.7 g/dL (3.5-5.0); Albumin/Globulin Ratio 0.7 (1.1-2.2); Bilirubin,Total 0.4 mg/dL (0.2-1.2); Calcium 9.5 mg/dL (8.6-10.8); Globulin 3.9 g/dL (2.4-3.5); Magnesium 1.9 mg/dL (1.6-2.6); Total Protein 6.6 g/dL (6.0-8.3)
[2017-01-11] MEDS: MethylPREDNISolone 40 MG/ML VIAL IVP SCH ×2 (05:54→17:18)
[2017-01-11] MEDS: Ampicillin/Sulbactam 3,000 MG in 0.9 % Sodium Chloride Mini Bag 100 ML IVPB SCH (05:55)
[2017-01-11 05:58] LABS: Hypersegmented Neutrophils Present (Not Present); Platelet Estimate Normal (Normal)
[2017-01-11] MEDS: Insulin LISPRO 300 UNITS/3 ML VIAL SQ SCH ×5 (05:59→21:36)
[2017-01-11] MEDS: *HR* Heparin 5,000 UNIT/ML VIAL SQ SCH ×2 (06:02→17:19)
--- NOTE | 2017-01-11 08:07 | Electrocardiograph Report ---
[place] [id number] Test Date: 2017-01-10 Pat Name: Lynnette Riley Department: 103 Room: 3B12 Gender: F Family Nurse Practitioner: : 1955 Requested By: Adam Tan Order Number: [id number] Reading MD: Edmundo Cardenas MD Measurements Intervals [place] Rate: 92 P: 73 NH: 193 QRS: 62 QRSD: 98 T: 52 QT: 372 QTc: 422 Interpretive Statements SINUS RHYTHM WITH OCCASIONAL SUPRAVENTRICULAR PREMATURE COMPLEXES BASELINE ARTIFACT Electronically Signed On 01-11-2017 8:05:43 EDT by Edmundo Cardenas MD
[2017-01-11] MEDS: hydrALAZINE 25 MG TABLET PO SCH ×2 (08:09→20:59)
[2017-01-11] MEDS: amLODIPine 5 MG TABLET PO SCH (08:09)
[2017-01-11] MEDS: Gabapentin 100 MG CAPSULE PO SCH ×3 (08:09→20:59)
[2017-01-11] MEDS: Sennosides 8.6 MG TABLET PO SCH ×2 (08:09→20:59)
[2017-01-11] MEDS: *HR* OxyCODONE Immed Rel 5 MG TABLET PO PRN ×2 (08:09→20:59)
[2017-01-11] MEDS: Famotidine 20 MG/2 ML VIAL IVP SCH (08:10)
[2017-01-11] MEDS ORDERED: 0.9 % Sodium Chloride 250 ML IVC PRN (11:12)
[2017-01-11] MEDS ORDERED: 0.9 % Sodium Chloride 1,000 ML PRIME SCH (11:15)
--- NOTE | 2017-01-11 12:11 | Nephrology Consult Note ---
<Rose Hayes - Last Filed: 01/11/17 12:08> Date of Encounter: 01/11/17 Time of Encounter: 12:08 Assessment and Plan (1) ESRD (end stage renal disease) on dialysis Current Visit: No Status: Chronic patient with M-W-F outpatient dialysis - no FATOUMATA on admission - will need GROCERY SACKER today (2) COPD with acute bronchitis Current Visit: Yes Status: Acute management per primary team (3) Congestive heart failure (CHF) Current Visit: Yes Status: Chronic Qualifiers: Congestive heart failure type: unspecified congestive heart failure type Congestive heart failure chronicity: unspecified congestive heart failure chronicity Qualified Code(s): I50.9 - Heart failure, unspecified (4) Hyperglycemia due to type 2 diabetes mellitus Current Visit: No Status: Acute Qualifiers: Diabetes mellitus care home insulin use: with continuous churn buttermaker use Qualified Code( s): E11.65 - Type 2 diabetes mellitus with hyperglycemia; Z79.4 - detention ( 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 of insulin History of Present Illness - Reason for Consult Consult date: 01/11/17 end stage renal disease - Chief Complaint dialysis - History of Present Illness 61 yo female with PMH of COPD on long-term oxygen, DM, and ESRD on dialysis recently discharged 7 days prior presents with progressive shortness of breath, productive cough, and subjective fever. She is a M-W-F dialysis patient. Past Med Surg Social Fam HX - Past Medical History Medical history: arthritis, atrial fibrillation, CHF, COPD, coronary artery disease, CVA, DVT, diabetes, dialysis, fibromyalgia, GERD, hyperlipidemia, hypertension, kidney stones, migraine, myocardial infarction, osteoporosis, peripheral artery disease, renal disease, other Psychiatric history: anxiety - Past Surgical History Surgical History: angioplasty/stent, appendectomy, cholecystectomy, coronary bypass (CABG), hysterectomy, knee replacement, other, IVC filter - Social History Smoking Status: Current every day smoker Packs per day: 1 Smokeless Tobacco Status: No Alcohol use: none Drug use: none - Family History Father Living Status: Hx Family Cardiac Disorders: Yes Hx Family Endocrine Disorder: Yes Mother Living Status: Still Living Hx Family Respiratory Disorders: Yes (end stage copd) Medications and Allergies Amitriptyline [Elavil] 100 mg PO HS 05/11/15 [History] Clopidogrel [Plavix] 75 mg PO DAILY 05/11/15 [History] Ergocalciferol (VITAMIN D2) [Vitamin D2 (50,000 UNIT)] 50,000 units PO TH #0 [History] Omeprazole [PriLOSEC] 20 mg PO BID 05/11/15 [History] Rosuvastatin [Crestor] 40 mg PO HS 05/11/15 [History] Sevelamer [Renvela] 800 mg PO TIDWM 05/11/15 [History] Albuterol Neb [AccuNeb] 3 ml IH Q6H PRN 06/12/15 [History] Aripiprazole [Abilify] 10 mg PO HS 06/12/15 [History] Colestipol HCl [Colestid] 1 gm PO BID 06/12/15 [History] Sennosides [Senna] 8.6 mg PO BID 06/12/15 [History] Carvedilol 12.5 mg PO BID 10/28/15 [History] HydrALAZINE 50 mg PO BID 12/30/15 [History] Amlodipine [Norvasc] 5 mg PO DAILY 06/09/16 [History] Insulin Glargine,Hum.rec.anlog [Lantus Solostar] 60 unit SQ BID 06/09/16 [ History] Budesonide/Formoterol 160/4.5 [Symbicort 160/4.5] 2 puff IH BIDR inhaler [Rx] Gabapentin [Neurontin] 200 mg PO TID 30 Days 06/18/16 [Rx] Calcium Acetate [Phos-LO] 667 mg PO TIDWM 09/06/16 [History] Furosemide [Lasix] 80 mg PO BID 09/06/16 [History] Insulin LISPRO [Humalog] 20 unit SQ TIDWM 09/06/16 [History] Metolazone [Zaroxolyn] 2.5 mg PO MOWEFR 09/06/16 [History] Tiotropium [place] [Spiriva] 1 cap IH DAILY 11/15/16 [History] OxyCODONE/APAP 10/325 [Percocet 10/325 MG] 1 each PO Q6H PRN #10 tablet [Rx] Albuterol Sulfate [Ventolin Hfa] 2 puff IH Q4H PRN 12/29/16 [History] Ondansetron ODT [Zofran ODT] 4 mg SL Q8HR PRN 12/29/16 [History] Acetaminophen w/Cod 300-30 mg [Tylenol w/Codeine #3] 1 tab PO Q6HR PRN #12 tablet 12/30/16 [Rx] Benzonatate [Tessalon] 200 mg PO TID PRN #40 capsule 12/30/16 [Rx] Guaifenesin [Guaifenesin ER] 1,200 mg PO BID #10 tab.er.12h 12/30/16 [Rx] Oxycodone HCl [Oxycontin] 60 mg PO Q12H 12/31/16 [History] Allergies No Known Allergies Allergy (Verified 12/28/16 19:00) Review of Systems Constitutional: fever(s) (subjective), no chills Nose, mouth and throat: no mouth pain, no nasal congestion Cardiovascular: dyspnea Respiratory: cough, dyspnea, excessive phlegm production Exam - Vital Signs Vital signs: Initial Vital Signs Temp Pulse Resp BP Pulse Ox 98.3 F 93 24 159/65 100 01/10/17 17:11 01/10/17 17:11 01/10/17 17:11 01/10/17 17:11 01/10/17 17:11 Vital Signs - Last 8 Hours Temp Pulse Resp BP Pulse Ox 01/11/17 11:30 98.0 F 85 17 152/50 98 01/11/17 07:22 97.9 F 88 17 144/46 95 01/11/17 04:27 17 97 Intake and Output 01/10/17 01/11/17 01/11/17 23:59 07:59 15:59 Intake Total 200 / 200 240 / 240 Output Total 500 / 500 Balance 200 / 200 -260 / -260 Intake: IV Fluids 200 / 200 Unasyn 3,000 MG In 0.9 % 200 / 200 Sodium Chloride (Mini-Bag +) 100 ML @ 200 mls/hr IVPB Q6HR NATALIE Rx#: [id number] Oral 240 / 240 Output: Urine 500 / 500 Other: Meal Breakfast Percent of Meal Consumed 90% # Urine Diapers 1 1 Weight 128.452 kg Blood Glucose* 283 355 - General Appearance General appearance: well-developed, well-nourished, appears started age EENT: mucous membranes moist Neck: supple Respiratory: course breath sounds, rhonchi Cardiology: no murmurs, edema (1+ pedal ), regular rate, regular rhythm, normal S1, normal S2 - Dialysis Access Dialysis Vascular Access: Arteriovenous Fistula thrill: Yes bruit: Yes Integumentary: no rash, warm and dry Neurologic: no focal deficit, alert and oriented x3, CN 3-12 intact Musculoskeletal: no deformities Psychiatric: mood/affect appropriate, cooperative Results - Lab Results 01/11/17 04:40 01/11/17 04:40 Most recent lab results ABG pH 7.44 pH Units (7.32-7.45) 01/10/17 20:15 ABG pCO2 33 mmHg (35-45) L 01/10/17 20:15 ABG pO2 159 mmHg (85-104) H 01/10/17 20:15 ABG HCO3 22.4 mEQ/L (21-27) 01/10/17 20:15 ABG O2 Saturation 100 % (95-98) H 01/10/17 20:15 Calcium 9.5 mg/dL (8.6-10.8) 01/11/17 04:40 Magnesium 1.9 mg/dL (1.6-2.6) 01/11/17 04:40 Consult Discharge Plan - Plan Referrals: Tristen Quintana MD [Primary Care Provider] - <Luma Mendez - Last Filed: 01/11/17 22:58> Date of Encounter: 01/11/17 Exam - Vital Signs Vital signs: Initial Vital Signs Temp Pulse Resp BP Pulse Ox 98.3 F 93 24 159/65 100 01/10/17 17:11 01/10/17 17:11 01/10/17 17:11 01/10/17 17:11 01/10/17 17:11 Vital Signs - Last 8 Hours Temp Pulse Resp BP Pulse Ox 01/11/17 21:15 96 01/11/17 21:13 20 96 01/11/17 19:24 98.1 F 89 17 157/62 95 01/11/17 16:28 17 93 01/11/17 15:53 98.0 F 84 17 145/65 93 01/11/17 15:37 97.1 F L 20 162/85 01/11/17 15:35 150/80 01/11/17 15:20 132/80 01/11/17 15:05 162/84 Intake and Output 01/11/17 01/11/17 01/11/17 07:59 15:59 23:59 Intake Total 200 / 200 840 / 840 Output Total 4600 / 4600 Balance 200 / 200 -3760 / -3760 Intake: IV Fluids 200 / 200 Unasyn 3,000 MG In 0.9 % 200 / 200 Sodium Chloride (Mini-Bag +) 100 ML @ 200 mls/hr IVPB Q6HR NATALIE Rx#: [id number] Oral 240 / 240 Intake, Rinseback and 600 / 600 Flushes Output: Urine 500 / 500 Total Dialysis Output 4100 / 4100 Other: Meal Breakfast Percent of Meal Consumed 90% # Urine Diapers 1 1 Blood Glucose* 283 355 494 Hemodialysis Net Fluid 4100 Removed (mL) Results - Lab Results 01/11/17 04:40 01/11/17 04:40 Most recent lab results ABG pH 7.44 pH Units (7.32-7.45) 01/10/17 20:15 ABG pCO2 33 mmHg (35-45) L 01/10/17 20:15 ABG pO2 159 mmHg (85-104) H 01/10/17 20:15 ABG HCO3 22.4 mEQ/L (21-27) 01/10/17 20:15 ABG O2 Saturation 100 % (95-98) H 01/10/17 20:15 Calcium 9.5 mg/dL (8.6-10.8) 01/11/17 04:40 Magnesium 1.9 mg/dL (1.6-2.6) 01/11/17 04:40 - Attending Attestation I examined this patient and my medical decision-making was reviewed with the CERTIFIED CODER/PA/Advanced Practice Nurse/Resident Physician. I agree with the documented findings, disposition and treatment plan as described except to the extent set forth below. In brief, 61 y o female with PMH of COPD, DM, HTN and ESRD on HD with recurrent hospital stays the past 2 months returning for similar symptoms of SOB diagnosed with COPD/CHF and pneumonia. renal consulted to resumed HD today. Pt seen and examined with no additional complaints. Will plan to dialyze for 3.5hrs with UF goal of 3-4kg as tolerated Will provide HD as needed during hospital stay
[2017-01-11] MEDS ORDERED: 0.9 % Sodium Chloride 2,000 ML ONE (14:50)
[2017-01-11] MEDS ORDERED: Ampicillin/Sulbactam 3,000 MG in 0.9 % Sodium Chloride Mini Bag 100 ML IVPB SCH (18:00)
--- NOTE | 2017-01-11 19:35 | Internal Med Progress Note ---
Date of Encounter: 01/11/17 Time of Encounter: 10:30 - Assessment and plan (1) COPD (chronic obstructive pulmonary disease) Current Visit: No Status: Chronic Assessment and plan: Chest x-ray shows patchy bilateral airspace opacities and consolidation in the lower lobes consistent with pneumonia. Given their appearance aspiration be considered as an etiology. She has mild groundglass opacities in both upper lobes which could be related to mild pulmonary edema versus infection. . Patient has been afebrile. Leukocytosis white count 26.9, neutrophils 25.7. Will redraw in the morning Unasyn IV Mucinex Oxygen Pulse ox Photoengraving Etcher Apprentice labs Monitor patient Steroids DuoNeb's Qualifiers: COPD type: emphysema Emphysema type: unspecified Qualified Code(s): J43.9 - Emphysema, unspecified (2) Respiratory failure with hypoxia Current Visit: Yes Status: Acute Assessment and plan: Patient is requiring supplemental oxygen to maintain her sats around 93%. She does have home oxygen Plan as above Qualifiers: Chronicity: acute on chronic Qualified Code(s): J96.21 - Acute and chronic respiratory failure with hypoxia (3) ESRD (end stage renal disease) Current Visit: Yes Status: Acute Assessment and plan: Patient gets dialysis on Wednesday. She did have dialysis today and did complete the treatment. Creatinine is 2.98. GFR 16. Continue monitor labs Dialysis as scheduled or when necessary Avoid nephrotoxins (4) CHF (congestive heart failure) Current Visit: No Status: Chronic Assessment and plan: Chronic. Resume home medications. BNP is 334. Can reassess after dialysis. Qualifiers: Congestive heart failure type: diastolic Congestive heart failure chronicity: acute on chronic Qualified Code(s): I50.33 - Acute on chronic diastolic (congestive) heart failure (5) Hyperglycemia due to type 2 diabetes mellitus Current Visit: No Status: Acute Assessment and plan: Last A1c was 11.1. Glucose is 432 here. Sliding scale insulin Accu-Cheks before meals at bedtime Diabetic diet Qualifiers: Diabetes mellitus [facility] insulin use: with termination clerk use Qualified Code( s): E11.65 - Type 2 diabetes mellitus with hyperglycemia; Z79.4 - termite exterminator helper ( 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 of insulin (6) Morbid (severe) obesity due to excess calories Current Visit: No Status: Chronic Assessment and plan: Chronic. Lifestyle changes. (7) Aspiration pneumonia Current Visit: Yes Status: Acute Assessment and plan: Patient has patchy bilateral airspace opacities and consolidations of the lower lobes bilaterally consistent with pneumonia. Aspiration should be considered as an etiology. She is being treated with Unasyn. Leukocytosis 26.9. She has not been tachycardic nor has she been tachypneic, does not meet SIRS criteria at this time. We will continue to monitor Continue to monitor patient Monitor vital signs Monitor labs Qualifiers: Aspiration pneumonia type: unspecified Laterality: unspecified laterality Lung location: upper lobe of lung Qualified Code(s): J69.0 - Pneumonitis due to inhalation of food and vomit - Time Spent With Patient less than 15 minutes - Subjective Interval history: I saw patient this morning prior to her going to dialysis. Her respirations are slightly labored on oxygen by nasal cannula. Her lungs were wheezy. I breathing treatment beginning while she was in dialysis. Patient spoke in long phrases area just is pleasant alert and awake. I did see her when she got back from dialysis, as well. She remained about the same. She states that she did feel much better. - Constitutional Vitals: Temp Pulse Resp BP Pulse Ox 98.1 F 89 17 157/62 95 01/11/17 19:24 01/11/17 19:24 01/11/17 19:24 01/11/17 19:24 01/11/17 19:24 General appearance: Present: cooperative, mild distress, A&O X 3 - Respiratory Respiratory exam: Present: decreased breath sounds, wheezes, tachypnea. Absent : CTAB, rales, rhonchi, stridor - Cardiovascular Cardiovascular exam: Present: RRR, +S1, +S2. Absent: bradycardia, diastolic murmur, systolic murmur - GI/Abdominal GI/Abdominal exam: Present: distended, normal bowel sounds, soft. Absent: tenderness - Extremities Exam Extremities exam: Present: normal inspection, pedal edema, radial pulses palpable and symetrical. Absent: tenderness - Neurological Exam Neurological exam: Present: alert, oriented X3, no focal deficits, strengths equal and symetr throughout. Absent: facial droop, speech deficit Internal Medicine: Result - Labs CBC & Chem 7: 01/11/17 04:40 01/11/17 04:40 Labs: Short CBC 01/11/17 Range/Units 04:40 WBC 26.9 H (4.3-11.1) K/mcL Hgb 11.3 L (11.5-15.4) g/dL Hct 37.3 (35.3-44.9) % Plt Count 189 (140-400) K/mcL Neutrophils # 25.7 H (1.6-8.9) K/mcL BMP 01/11/17 04:40 Sodium 130 L Potassium 4.0 Chloride 93 L Carbon Dioxide 25 BUN 75 H Creatinine 2.98 H Glucose 286 H Calcium 9.5 Liver Function 01/11/17 Range/Units 04:40 Total Bilirubin 0.4 (0.2-1.2) mg/dL AST 12 (5-34) Units/L ALT 18 (0-55) Units/L Alkaline Phosphatase 131 H (38-126) Units/L Albumin 2.7 L (3.5-5.0) g/dL - ABG Interpretation ABG results: ABG ABG pH 7.44 pH Units (7.32-7.45) 01/10/17 20:15 ABG pCO2 33 mmHg (35-45) L 01/10/17 20:15 ABG pO2 159 mmHg (85-104) H 01/10/17 20:15 ABG O2 Saturation 100 % (95-98) H 01/10/17 20:15 PT/INR, D-dimer PT 10.3 Seconds (9.4-12.1) 01/11/17 04:40 Consult Discharge Plan - Plan Referrals: Tristen Quintana MD [Primary Care Provider] -
[2017-01-11] MEDS: Insulin DETEMIR 100 UNIT/ML X5UNITS SQ SCH (21:00)
[2017-01-12] MEDS: *HR* Morphine 2 MG/ML SYRINGE IVP PRN ×2 (01:27→19:38)
[2017-01-12] MEDS: Ondansetron 4 MG/2 ML VIAL IVP PRN ×3 (03:43→19:39)
[2017-01-12] MEDS: Ipratropium/Albuterol Neb 3 ML IH SCH ×4 (04:05→22:20)
[2017-01-12] MEDS: MethylPREDNISolone 40 MG/ML VIAL IVP SCH ×2 (05:36→17:43)
[2017-01-12] MEDS: *HR* Heparin 5,000 UNIT/ML VIAL SQ SCH ×2 (05:36→17:52)
[2017-01-12] MEDS: Insulin LISPRO 300 UNITS/3 ML VIAL SQ SCH ×4 (08:57→21:49)
[2017-01-12] MEDS: amLODIPine 5 MG TABLET PO SCH (08:58)
[2017-01-12] MEDS: hydrALAZINE 25 MG TABLET PO SCH ×2 (08:59→21:52)
[2017-01-12] MEDS: Sennosides 8.6 MG TABLET PO SCH ×2 (08:59→21:52)
[2017-01-12] MEDS: Famotidine 20 MG/2 ML VIAL IVP SCH (08:59)
[2017-01-12] MEDS: Gabapentin 100 MG CAPSULE PO SCH ×3 (08:59→21:52)
[2017-01-12] MEDS ORDERED: Insulin DETEMIR 100 UNIT/ML X5UNITS SQ SCH (09:00)
[2017-01-12] MEDS: Ampicillin/Sulbactam 3,000 MG in 0.9 % Sodium Chloride Mini Bag 100 ML IVPB SCH ×2 (12:20→17:37)
[2017-01-12] MEDS ORDERED: Benzonatate 100 MG CAPSULE PO PRN (12:53)
--- NOTE | 2017-01-12 12:54 | Internal Med Progress Note ---
Date of Encounter: 01/12/17 Time of Encounter: 09:30 - Assessment and plan (1) Aspiration pneumonia Current Visit: Yes Status: Acute Assessment and plan: Chest x-ray consistent with bilateral lower lobe aspiration pneumonia. Patient stating that over the last 2-1/2 weeks, when she eats, she has issues with choking and coughing. She denies the sensation of food getting stuck however she states that it appears as if she "regurgitates". Speech therapy has seen and evaluated the patient. We will continue aspiration precautions. Continue Unasyn. Multiple respiratory cultures are pending. ITS Impressions Chest X-Ray 01/10/17 17:13 IMPRESSION: Findings as above which may represent mild congestive heart failure. D/ / Em Do MD / Em Do MD Interpreting Provider: Em Do MD Chest CT 01/10/17 19:54 IMPRESSION: Patchy bilateral airspace opacities and consolidation in the lower lobes, consistent with pneumonia. Given their appearance, aspiration should be considered as an etiology. Mild ground-glass opacities in both upper lobes, which could be related to mild pulmonary edema versus an infectious process. Mild cardiomegaly. Coronary atherosclerosis. D/ / 01/10/2017 21:06:33 Dennis Bartlett MD / [facility] Interpreting Provider: Dennis Bartlett MD Qualifiers: Aspiration pneumonia type: unspecified Laterality: unspecified laterality Lung location: upper lobe of lung Qualified Code(s): J69.0 - Pneumonitis due to inhalation of food and vomit (2) CHF (congestive heart failure) Current Visit: No Status: Chronic Assessment and plan: She appears to have been in a mild exacerbation upon presentation however she currently appears euvolemic on examination. Nonpitting edema noted to bilateral lower extremities which the patient states is baseline for her. Chronic diastolic heart failure. Qualifiers: Congestive heart failure type: diastolic Congestive heart failure chronicity: acute on chronic Qualified Code(s): I50.33 - Acute on chronic diastolic (congestive) heart failure (3) Leukocytosis Current Visit: No Status: Acute Assessment and plan: Trending down. We will continue to trend. Of note, she was on steroids outpatient as well which could be contributing to her marked leukocytosis of 34 upon arrival. We will continue to trend. Qualifiers: Leukocytosis type: unspecified Qualified Code(s): D72.829 - Elevated white blood cell count, unspecified (4) CAD (coronary artery disease) Current Visit: No Status: Chronic Qualifiers: Coronary Disease-Associated Artery/Lesion type: [place] artery [place] vs. transplanted heart: [place] heart Associated angina: without angina Qualified Code(s): I25.10 - Atherosclerotic heart disease of [place] coronary artery without angina pectoris (5) COPD (chronic obstructive pulmonary disease) Current Visit: No Status: Chronic Assessment and plan: Clinical picture more consistent with aspiration pneumonia versus possible pertussis or other viral illness. She does not appear to be in acute exacerbation of her COPD. Continue bronchodilators, expectorants, Unasyn. Viral and sputum cultures pending. Qualifiers: COPD type: emphysema Emphysema type: unspecified Qualified Code(s): J43.9 - Emphysema, unspecified (6) ESRD on hemodialysis Current Visit: No Status: Chronic Assessment and plan: Nephrology on board. Dialysis Wednesday (7) HTN (hypertension) Current Visit: No Status: Chronic Assessment and plan: Hypertensive this morning however improved with home medications. At home, she is on furosemide 80 mg twice a day, carvedilol 12.5 mg twice a day, amlodipine 5 mg daily. Her carvedilol and amlodipine have been continued. We will continue to trend and adjust her medications as indicated. Qualifiers: Hypertension type: essential hypertension Qualified Code(s): I10 - Essential (primary) hypertension (8) Venous stasis dermatitis of both lower extremities Current Visit: No Status: Chronic (9) Diabetes type 2, uncontrolled Current Visit: No Status: Chronic Assessment and plan: Uncontrolled with an A1c last month of 11.1%. Hyperglycemic likely secondary to steroids and increased stress. She is on high-dose sliding scale, will increase basal as well. 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: without fdc use Chronic kidney disease stage: on chronic dialysis Qualified Code(s): E11.22 - Type 2 diabetes mellitus with diabetic chronic kidney disease; E11.65 - Type 2 diabetes mellitus with hyperglycemia; N18.6 - End stage renal disease; Z99.2 - Dependence on renal dialysis (10) DVT prophylaxis Current Visit: No Status: Acute Assessment and plan: Subcutaneous heparin (11) Anemia of chronic disease Current Visit: No Status: Chronic Assessment and plan: Currently slightly improved from her baseline, we will continue to trend (12) Chronic respiratory failure Current Visit: No Status: Chronic Qualifiers: Respiratory failure complication: unspecified whether with hypoxia or hypercapnia Qualified Code(s): J96.10 - Chronic respiratory failure, unspecified whether with hypoxia or hypercapnia (13) Multiple contusions Current Visit: No Status: Acute Assessment and plan: Patient with several areas of ecchymosis to her left upper extremity. She states that it was a newer nurse who tried to access her dialysis site. Negative for DVT. (14) Tobacco abuse Current Visit: No Status: Chronic Assessment and plan: Patient states she stopped smoking approximately one month ago however she states that since she has been discharged from the hospital last week, she has been smoking (15) Generalized weakness Current Visit: No Status: Acute Assessment and plan: OT and PT consultations are pending (16) H/O noncompliance with medical treatment, presenting hazards to health Current Visit: No Status: Chronic (17) DESHAWN (obstructive sleep apnea) Current Visit: No Status: Chronic Assessment and plan: CPAP while asleep (18) Morbid obesity with BMI of 40.0-44.9, adult Current Visit: Yes Status: Chronic - Subjective Interval history: Patient seen and examined. On examination, patient is sitting upright in bed. Patient stating she is eating well. Patient stating she continues to cough incessantly. She states that she has been coughing and choking on her food for approximately 2-1/2 weeks. She is complaining of generalized chest pain worsened with coughing as well as left upper extremity pain around her dialysis graft site. - Constitutional Vitals: Temp Pulse Resp BP Pulse Ox 98.9 F 87 16 159/65 98 01/12/17 11:50 01/12/17 11:50 01/12/17 11:51 01/12/17 11:50 01/12/17 11:51 General appearance: Present: cooperative, mild distress, A&O X 3, morbidly obese , pleasant, answers questions appropriately - Head Head exam: Present: atraumatic, normocephalic - Eye Eye exam: Present: PERRL, conjuntiva pink, sclera anicteric Pupils: Present: PERRL - Neck Neck exam general surgery: Present: supple, trachea midline. Absent: lymphadenopathy - Respiratory Respiratory exam: Present: decreased breath sounds, prolonged expiratory phase, respiratory distress, rhonchi, wheezes. Absent: accessory muscle use, rales - Cardiovascular Cardiovascular exam: Present: RRR, +S1, +S2. Absent: diastolic murmur, gallop, rubs, systolic murmur - GI/Abdominal GI/Abdominal exam: Present: normal bowel sounds, soft, no peritoneal signs. Absent: distended, tenderness - Extremities Exam Extremities exam: Present: warm, radial pulses palpable and symetrical. Absent : calf tenderness, cyanotic, pedal edema - Neurological Exam Neurological exam: Present: alert, CN II-XII intact, oriented X3, no focal deficits, strengths equal and symetr throughout. Absent: pronater drift, facial droop, speech deficit - Skin Skin exam: Present: dry, intact, pallor, warm Internal Medicine: Result - Labs CBC & Chem 7: 01/11/17 04:40 01/11/17 04:40 - ABG Interpretation ABG results: ABG ABG pH 7.44 pH Units (7.32-7.45) 01/10/17 20:15 ABG pCO2 33 mmHg (35-45) L 01/10/17 20:15 ABG pO2 159 mmHg (85-104) H 01/10/17 20:15 ABG O2 Saturation 100 % (95-98) H 01/10/17 20:15 PT/INR, D-dimer PT 10.3 Seconds (9.4-12.1) 01/11/17 04:40 Consult Discharge Plan - Plan Referrals: Tristen Quintana MD [Primary Care Provider] -
[2017-01-12 15:21] LABS: Adenovirus Not Detected (Not Detect); Bordetella Pertussis Not Detected (Not Detect); Chlamydophila pneumoniae Not Detected (Not Detect); Coronavirus 229E Not Detected (Not Detect); Coronavirus HKU1 Not Detected (Not Detect); Coronavirus NL63 Not Detected (Not Detect); Coronavirus OC43 Not Detected (Not Detect); Human Metapneumovirus Not Detected (Not Detect); Human Rhinovirus/Enterovirus Not Detected (Not Detect); Influenza A Subtype 2009 H1 Not Detected (Not Detect); Influenza A Untypeable Not Detected (Not Detect); Influenza B Not Detected (Not Detect); Mycoplasma pneumoniae Not Detected (Not Detect); Parainfluenza Virus 1 Not Detected (Not Detect); Parainfluenza Virus 2 Not Detected (Not Detect); Parainfluenza Virus 3 Not Detected (Not Detect); Parainfluenza Virus 4 Not Detected (Not Detect); Respiratory Syncytial Virus Not Detected (Not Detect)
[2017-01-12] MEDS: Insulin DETEMIR 100 UNIT/ML X5UNITS SQ SCH (21:51)
[2017-01-12] MEDS ORDERED: Insulin DETEMIR 100 UNIT/ML X5UNITS SQ ONE (23:16)
[2017-01-13] MEDS: Ipratropium/Albuterol Neb 3 ML IH SCH ×4 (04:19→22:58)
[2017-01-13 04:51] LABS: Basophils % 0.1 %; Hematocrit 35.6 % (35.3-44.9); Hemoglobin 11.2 g/dL (11.5-15.4); Immature Granulocytes % 1.6 % (0-4); Lymphocytes # 0.8 K/mcL (0.6-4.6); Lymphocytes % 5.7 %; Mean Corpuscular HGB Conc 31.5 g/dL (31.6-35.5); Mean Corpuscular Hemoglobin 25.5 pg (28.0-33.3); Mean Corpuscular Volume 80.9 fL (83.0-100.0); Mean Platelet Volume 10.8 fL (9.4-12.4); Monocytes # 0.4 K/mcL (0.0-1.3); Monocytes % 2.9 %; Neutrophils # 12.5 K/mcL (1.6-8.9); Platelet Count 193 K/mcL (140-400); Red Cell Distribution Width 15.9 % (11.5-14.5); Segmented Neutrophils % 89.7 %
[2017-01-13 05:10] LABS: Calcium 9.2 mg/dL (8.6-10.8)
[2017-01-13 05:15] LABS: Potassium 5.2 mEq/L (3.5-4.5)
[2017-01-13] MEDS: MethylPREDNISolone 40 MG/ML VIAL IVP SCH ×2 (06:11→18:14)
[2017-01-13] MEDS: *HR* Acetaminophen w/Cod 300-30 mg 1 TAB TABLET PO PRN (06:11)
[2017-01-13] MEDS: *HR* Heparin 5,000 UNIT/ML VIAL SQ SCH ×2 (06:11→18:14)
[2017-01-13] MEDS: Ampicillin/Sulbactam 3,000 MG in 0.9 % Sodium Chloride Mini Bag 100 ML IVPB SCH ×2 (06:12→18:14)
[2017-01-13] MEDS ORDERED: 0.9 % Sodium Chloride 250 ML IVC PRN (07:52)
[2017-01-13] MEDS: Insulin LISPRO 300 UNITS/3 ML VIAL SQ SCH ×4 (08:32→20:38)
[2017-01-13] MEDS: Insulin DETEMIR 100 UNIT/ML X5UNITS SQ SCH ×2 (08:32→20:37)
--- NOTE | 2017-01-13 09:08 | Internal Med Progress Note ---
Date of Encounter: 01/13/17 Time of Encounter: 08:30 - Assessment and plan (1) Aspiration pneumonia Current Visit: Yes Status: Acute Assessment and plan: Chest x-ray consistent with bilateral lower lobe aspiration pneumonia. Patient stating that over the last 2-1/2 weeks, when she eats, she has issues with choking and coughing. She denies the sensation of food getting stuck however she states that it appears as if she "regurgitates". Speech therapy has seen and evaluated the patient. We will continue aspiration precautions. Continue Unasyn. Viral respiratory cultures are negative. Blood cultures negative. On examination, patient was moist, hacking, nonproductive cough. Fair to good aeration throughout with coarse sounds noted. Mucinex has been ineffective, will add acetylcysteine and chest physiotherapy. Of note, this is her third admission in 2 weeks for difficulty breathing-will consider bringing Pulm onboard tomorrow if she fails to improve over the next day. ITS Impressions Chest X-Ray 01/10/17 17:13 IMPRESSION: Findings as above which may represent mild congestive heart failure. D/ / Em Do MD / Em Do MD Interpreting Provider: Em Do MD Chest CT 01/10/17 19:54 IMPRESSION: Patchy bilateral airspace opacities and consolidation in the lower lobes, consistent with pneumonia. Given their appearance, aspiration should be considered as an etiology. Mild ground-glass opacities in both upper lobes, which could be related to mild pulmonary edema versus an infectious process. Mild cardiomegaly. Coronary atherosclerosis. D/ / 01/10/2017 21:06:33 Dennis Bartlett MD / [facility] Interpreting Provider: Dennis Bartlett MD Qualifiers: Aspiration pneumonia type: unspecified Laterality: unspecified laterality Lung location: upper lobe of lung Qualified Code(s): J69.0 - Pneumonitis due to inhalation of food and vomit (2) CHF (congestive heart failure) Current Visit: No Status: Chronic Assessment and plan: She appears to have been in a mild exacerbation upon presentation however she currently appears euvolemic on examination. Nonpitting edema noted to bilateral lower extremities which the patient states is baseline for her. Chronic diastolic heart failure. Qualifiers: Congestive heart failure type: diastolic Congestive heart failure chronicity: acute on chronic Qualified Code(s): I50.33 - Acute on chronic diastolic (congestive) heart failure (3) Leukocytosis Current Visit: No Status: Acute Assessment and plan: Trending down. We will continue to trend. Of note, she was on steroids outpatient as well which could be contributing to her marked leukocytosis of 34 upon arrival. Qualifiers: Leukocytosis type: unspecified Qualified Code(s): D72.829 - Elevated white blood cell count, unspecified (4) CAD (coronary artery disease) Current Visit: No Status: Chronic Qualifiers: Coronary Disease-Associated Artery/Lesion type: [place] artery [place] vs. transplanted heart: [place] heart Associated angina: without angina Qualified Code(s): I25.10 - Atherosclerotic heart disease of [place] coronary artery without angina pectoris (5) COPD (chronic obstructive pulmonary disease) Current Visit: No Status: Chronic Assessment and plan: Clinical picture more consistent with aspiration pneumonia. She does not appear to be in acute exacerbation of her COPD. Continue bronchodilators, expectorants, Unasyn. Viral panel negative; sputum culture still pending. Qualifiers: COPD type: emphysema Emphysema type: unspecified Qualified Code(s): J43.9 - Emphysema, unspecified (6) ESRD on hemodialysis Current Visit: No Status: Chronic Assessment and plan: Nephrology on board. Dialysis Wednesday. Hyperkalemia noted today, asymptomatic, dialysis today (7) HTN (hypertension) Current Visit: No Status: Chronic Assessment and plan: Borderline hypertensive this morning however improved with home medications. At home, she is on furosemide 80 mg twice a day, carvedilol 12.5 mg twice a day , amlodipine 5 mg daily. Her carvedilol and amlodipine have been continued. We will continue to trend and adjust her medications as indicated. Qualifiers: Hypertension type: essential hypertension Qualified Code(s): I10 - Essential (primary) hypertension (8) Venous stasis dermatitis of both lower extremities Current Visit: No Status: Chronic (9) Diabetes type 2, uncontrolled Current Visit: No Status: Chronic Assessment and plan: Uncontrolled with an A1c last month of 11.1%. Hyperglycemic likely secondary to steroids and increased stress. 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 insulin use: without truck terminal manager use Chronic kidney disease stage: on chronic dialysis Qualified Code(s): E11.22 - Type 2 diabetes mellitus with diabetic chronic kidney disease; E11.65 - Type 2 diabetes mellitus with hyperglycemia; N18.6 - End stage renal disease; Z99.2 - Dependence on renal dialysis (10) DVT prophylaxis Current Visit: No Status: Acute Assessment and plan: Subcutaneous heparin (11) Anemia of chronic disease Current Visit: No Status: Chronic Assessment and plan: Currently slightly improved from her baseline, we will continue to trend (12) Chronic respiratory failure Current Visit: No Status: Chronic Qualifiers: Respiratory failure complication: unspecified whether with hypoxia or hypercapnia Qualified Code(s): J96.10 - Chronic respiratory failure, unspecified whether with hypoxia or hypercapnia (13) Multiple contusions Current Visit: No Status: Acute Assessment and plan: Patient with several areas of ecchymosis to her left upper extremity. She states that it was a newer nurse who tried to access her dialysis site. Negative for DVT. (14) Tobacco abuse Current Visit: No Status: Chronic Assessment and plan: Patient states she stopped smoking approximately one month ago however she states that since she has been discharged from the hospital last week, she has been smoking (15) Generalized weakness Current Visit: No Status: Acute Assessment and plan: OT and PT consultations have recommended home health. services host on board. (16) H/O noncompliance with medical treatment, presenting hazards to health Current Visit: No Status: Chronic (17) DESHAWN (obstructive sleep apnea) Current Visit: No Status: Chronic Assessment and plan: CPAP while asleep (18) Morbid obesity with BMI of 40.0-44.9, adult Current Visit: Yes Status: Chronic - Subjective Interval history: Patient seen and examined. On examination, patient is sitting upright in bed eating her breakfast. She states her shortness of breath and her cough has remained unchanged. She states her cough still continues to be moist but she is unable to produce any phlegm. She states she is eating well. She still endorses shortness of breath above her norm. - Constitutional Vitals: Temp Pulse Resp BP Pulse Ox 97.6 F 83 15 163/51 98 01/13/17 07:21 01/13/17 07:21 01/13/17 07:21 01/13/17 07:21 01/13/17 07:21 General appearance: Present: cooperative, mild distress, A&O X 3, morbidly obese , pleasant, answers questions appropriately - Head Head exam: Present: atraumatic, normocephalic - Eye Eye exam: Present: PERRL, conjuntiva pink, sclera anicteric Pupils: Present: PERRL - Neck Neck exam general surgery: Present: supple, trachea midline. Absent: lymphadenopathy - Respiratory Respiratory exam: Present: decreased breath sounds, respiratory distress (Mild) , rhonchi. Absent: accessory muscle use, rales, wheezes - Cardiovascular Cardiovascular exam: Present: RRR, +S1, +S2. Absent: diastolic murmur, gallop, rubs, systolic murmur - GI/Abdominal GI/Abdominal exam: Present: normal bowel sounds, soft, no peritoneal signs. Absent: distended, tenderness - Extremities Exam Extremities exam: Present: pedal edema (Trace, nonpitting), warm, radial pulses palpable and symetrical. Absent: calf tenderness, cyanotic - Neurological Exam Neurological exam: Present: alert, CN II-XII intact, oriented X3, no focal deficits, strengths equal and symetr throughout. Absent: pronater drift, facial droop, speech deficit - Skin Skin exam: Present: dry, intact, pallor, warm Internal Medicine: Result - Labs CBC & Chem 7: 01/13/17 03:59 01/13/17 03:59 Labs: Short CBC 01/13/17 Range/Units 03:59 WBC 14.0 H (4.3-11.1) K/mcL Hgb 11.2 L (11.5-15.4) g/dL Hct 35.6 (35.3-44.9) % Plt Count 193 (140-400) K/mcL Neutrophils # 12.5 H (1.6-8.9) K/mcL BMP 01/13/17 03:59 Sodium 132 L Potassium 5.2 H D Chloride 94 L Carbon Dioxide 25 BUN 89 H Creatinine 2.81 H Glucose 260 H Calcium 9.2 - ABG Interpretation ABG results: ABG ABG pH 7.44 pH Units (7.32-7.45) 01/10/17 20:15 ABG pCO2 33 mmHg (35-45) L 01/10/17 20:15 ABG pO2 159 mmHg (85-104) H 01/10/17 20:15 ABG O2 Saturation 100 % (95-98) H 01/10/17 20:15 PT/INR, D-dimer PT 10.3 Seconds (9.4-12.1) 01/11/17 04:40 - VTE Documentation of Mechanical Device: Intermittent pneumatic compression device Consult Discharge Plan - Plan Referrals: Tristen Quintana MD [Primary Care Provider] - 01/20/17 5:00 pm
[2017-01-13] MEDS: Acetylcysteine 10% 2 ML INHSOL IH SCH ×3 (11:05→22:58)
--- NOTE | 2017-01-13 11:29 | Nephrology Progress Note ---
Date of Encounter: 01/13/17 Time of Encounter: 09:45 - Assessment and Plan (1) ESRD (end stage renal disease) Current Visit: Yes Status: Chronic HD today for clearance and volume. Will plan for a goal 4kg of UF today. If she were to remain in the hospital tomorrow, I will plan for UF tomorrow as well. Thank you. (2) Dyspnea Current Visit: Yes Status: Acute Qualifiers: Dyspnea type: shortness of breath Qualified Code(s): R06.02 - Shortness of breath (3) Morbid obesity with BMI of 40.0-44.9, adult Current Visit: Yes Status: Chronic Subjective Principal diagnosis: Shortness of breath Interval history: Pt was s/e earlier this AM while on HD. She said her shortness of breath was about the same as the last few days. She last completed HD on Wednesday. She did not affirm any dialysis related symptoms of cramping or N/V. Objective - Vital Signs Vital signs: Vital Signs Temp Pulse Resp BP Pulse Ox 01/13/17 07:21 97.6 F 83 15 163/51 98 01/13/17 04:20 17 100 01/12/17 22:21 18 99 01/12/17 19:11 98.1 F 84 18 157/59 99 01/12/17 15:17 98.1 F 82 16 137/60 96 01/12/17 15:12 16 100 01/12/17 11:51 16 98 01/12/17 11:50 98.9 F 87 18 159/65 97 Intake and Output 01/12/17 01/13/17 01/13/17 23:59 07:59 15:59 Intake Total 100 / 100 100 / 100 240 / 240 Output Total 650 / 650 Balance 100 / 100 -550 / -550 240 / 240 Intake: IV Fluids 100 / 100 100 / 100 Unasyn 3,000 MG In 0.9 % 100 / 100 100 / 100 Sodium Chloride (Mini-Bag +) 100 ML @ 200 mls/hr IVPB Q12HR [facility] Rx#: [id number] Oral 240 / 240 Output: Urine 650 / 650 Other: Meal Dinner Breakfast Percent of Meal Consumed 70% 75% Blood Glucose* 184 242 - General Appearance General appearance: Present: well-developed, well-nourished, appears started age EENT: Present: ATNC, PERRL Neck: Present: supple Respiratory: Present: course breath sounds Cardiology: Present: no edema, regular rate, regular rhythm, normal S1, normal S2 Gastrointestinal: Present: normoactive bowel sounds, no tenderness, no guarding Integumentary: Present: warm and dry, ecchymotic Neurologic: Present: no focal deficit, no asterixis, alert and oriented x3 Musculoskeletal: Present: no deformities, no erythema, no cyanosis Psychiatric: Present: mood/affect appropriate, cooperative - Lab 01/13/17 03:59 01/13/17 03:59 Most recent lab results ABG pH 7.44 pH Units (7.32-7.45) 01/10/17 20:15 ABG pCO2 33 mmHg (35-45) L 01/10/17 20:15 ABG pO2 159 mmHg (85-104) H 01/10/17 20:15 ABG HCO3 22.4 mEQ/L (21-27) 01/10/17 20:15 ABG O2 Saturation 100 % (95-98) H 01/10/17 20:15 Calcium 9.2 mg/dL (8.6-10.8) 01/13/17 03:59 Magnesium 1.9 mg/dL (1.6-2.6) 01/11/17 04:40 - VTE Documentation of Mechanical Device: Intermittent pneumatic compression device Consult Discharge Plan - Plan Referrals: Tristen Quintana MD [Primary Care Provider] - 01/20/17 5:00 pm
[2017-01-13] MEDS: Gabapentin 100 MG CAPSULE PO SCH ×3 (14:09→20:37)
[2017-01-13] MEDS: Sennosides 8.6 MG TABLET PO SCH ×2 (14:15→20:37)
[2017-01-13] MEDS: hydrALAZINE 25 MG TABLET PO SCH ×2 (14:16→20:37)
[2017-01-13] MEDS: Famotidine 20 MG/2 ML VIAL IVP SCH (14:16)
[2017-01-13] MEDS: amLODIPine 5 MG TABLET PO SCH (14:16)
[2017-01-13] MEDS: *HR* Morphine 2 MG/ML SYRINGE IVP PRN ×2 (16:26→20:37)
[2017-01-14] MEDS: Ipratropium/Albuterol Neb 3 ML IH SCH ×4 (04:02→22:39)
[2017-01-14] MEDS: Acetylcysteine 10% 2 ML INHSOL IH SCH ×4 (04:02→22:39)
[2017-01-14] MEDS: *HR* Morphine 2 MG/ML SYRINGE IVP PRN ×2 (05:12→14:06)
[2017-01-14] MEDS: Ampicillin/Sulbactam 3,000 MG in 0.9 % Sodium Chloride Mini Bag 100 ML IVPB SCH ×2 (05:20→17:41)
[2017-01-14] MEDS: MethylPREDNISolone 40 MG/ML VIAL IVP SCH ×2 (05:21→17:41)
[2017-01-14] MEDS: *HR* Heparin 5,000 UNIT/ML VIAL SQ SCH ×2 (05:21→18:16)
[2017-01-14 06:15] LABS: Basophils % 0.1 %; Hematocrit 33.8 % (35.3-44.9); Hemoglobin 10.6 g/dL (11.5-15.4); Immature Granulocytes % 1.6 % (0-4); Lymphocytes # 0.7 K/mcL (0.6-4.6); Lymphocytes % 6.3 %; Mean Corpuscular HGB Conc 31.4 g/dL (31.6-35.5); Mean Corpuscular Hemoglobin 25.3 pg (28.0-33.3); Mean Corpuscular Volume 80.7 fL (83.0-100.0); Mean Platelet Volume 11.2 fL (9.4-12.4); Monocytes # 0.5 K/mcL (0.0-1.3); Neutrophils # 10.4 K/mcL (1.6-8.9); Platelet Count 180 K/mcL (140-400); Red Blood Count 4.19 M/mcL (3.82-4.97)
[2017-01-14 06:16] LABS: Calcium 8.8 mg/dL (8.6-10.8); Phosphorous 3.6 mg/dL (2.3-4.7)
[2017-01-14] MEDS ORDERED: 0.9 % Sodium Chloride 250 ML IVC PRN (08:02)
[2017-01-14] MEDS: *HR* Acetaminophen w/Cod 300-30 mg 1 TAB TABLET PO PRN ×2 (08:12→17:40)
[2017-01-14] MEDS: amLODIPine 5 MG TABLET PO SCH (08:13)
[2017-01-14] MEDS: Gabapentin 100 MG CAPSULE PO SCH ×3 (08:13→19:51)
[2017-01-14] MEDS: Sennosides 8.6 MG TABLET PO SCH ×2 (08:13→19:51)
[2017-01-14] MEDS: Famotidine 20 MG TABLET PO SCH (08:13)
[2017-01-14] MEDS: hydrALAZINE 25 MG TABLET PO SCH ×2 (08:13→19:51)
--- NOTE | 2017-01-14 08:42 | Nephrology Progress Note ---
Date of Encounter: 01/14/17 Time of Encounter: 08:40 - Assessment and Plan (1) ESRD (end stage renal disease) on dialysis Current Visit: No Status: Chronic Will plan for UF today Regular HD treatment tomorrow Renal diet Fluid restriction of 1.5 liters/day Avoid nephrotoxins if possible (2) Aspiration pneumonia Current Visit: Yes Status: Acute per primary team Qualifiers: Aspiration pneumonia type: unspecified Laterality: unspecified laterality Lung location: upper lobe of lung Qualified Code(s): J69.0 - Pneumonitis due to inhalation of food and vomit (3) Morbid obesity with BMI of 40.0-44.9, adult Current Visit: Yes Status: Chronic per primary team Subjective Principal diagnosis: Shortness of breath Interval history: Patient seen and examined. Sitting up in chair eating breakfast. Objective - Vital Signs Vital signs: Vital Signs Temp Pulse Resp BP Pulse Ox 01/14/17 06:59 97.7 F 77 18 169/67 97 01/14/17 05:09 18 98 01/13/17 23:17 98.1 F 80 15 149/70 97 01/13/17 22:58 18 98 01/13/17 20:00 97 01/13/17 19:11 98.0 F 109 17 154/55 97 01/13/17 15:12 16 96 01/13/17 14:45 97.7 F 90 16 182/72 97 01/13/17 13:10 97.6 F 18 172/90 01/13/17 12:25 143/53 01/13/17 12:10 147/68 01/13/17 11:55 146/93 01/13/17 11:40 137/88 01/13/17 11:25 132/87 01/13/17 11:10 153/73 01/13/17 10:55 158/70 01/13/17 10:40 117/95 01/13/17 10:25 137/68 01/13/17 10:10 158/70 01/13/17 09:55 182/75 01/13/17 09:40 173/71 01/13/17 09:30 97.6 F 18 172/90 Intake and Output 01/13/17 01/14/17 01/14/17 23:59 07:59 15:59 Intake Total 340 / 340 Balance 340 / 340 Intake: IV Fluids 100 / 100 Unasyn 3,000 MG In 0.9 % 100 / 100 Sodium Chloride (Mini-Bag +) 100 ML @ 200 mls/hr IVPB Q12HR [facility] Rx#: [id number] Oral 240 / 240 Other: Meal Dinner Percent of Meal Consumed 100% Blood Glucose* 267 236 - General Appearance General appearance: Present: well-developed, well-nourished, obese EENT: Present: ATNC, mucous membranes moist, hearing intact, vision intact Neck: Present: supple Respiratory: Present: wheezing, rhonchi Cardiology: Present: edema, normal S1, normal S2 Dialysis Vascular Access: Arteriovenous Fistula Gastrointestinal: Present: no tenderness, no guarding Integumentary: Present: warm and dry Neurologic: Present: alert and oriented x3 Psychiatric: Present: mood/affect appropriate, cooperative - Lab 01/14/17 05:08 01/14/17 05:08 Most recent lab results ABG pH 7.44 pH Units (7.32-7.45) 01/10/17 20:15 ABG pCO2 33 mmHg (35-45) L 01/10/17 20:15 ABG pO2 159 mmHg (85-104) H 01/10/17 20:15 ABG HCO3 22.4 mEQ/L (21-27) 01/10/17 20:15 ABG O2 Saturation 100 % (95-98) H 01/10/17 20:15 Calcium 8.8 mg/dL (8.6-10.8) 01/14/17 05:08 Phosphorus 3.6 mg/dL (2.3-4.7) 01/14/17 05:08 Magnesium 1.9 mg/dL (1.6-2.6) 01/11/17 04:40 - VTE Documentation of Mechanical Device: Intermittent pneumatic compression device Consult Discharge Plan - Plan Referrals: Tristen Quintana MD [Primary Care Provider] - 01/20/17 5:00 pm
[2017-01-14] MEDS: Insulin LISPRO 300 UNITS/3 ML VIAL SQ SCH ×4 (09:19→21:15)
[2017-01-14] MEDS: Insulin DETEMIR 100 UNIT/ML X5UNITS SQ SCH ×2 (09:20→21:15)
--- NOTE | 2017-01-14 19:04 | Internal Med Progress Note ---
Date of Encounter: 01/14/17 Time of Encounter: 12:30 - Assessment and plan (1) Aspiration pneumonia Current Visit: Yes Status: Acute Assessment and plan: Chest x-ray consistent with bilateral lower lobe aspiration pneumonia. Patient stating that over the last 2-1/2 weeks, when she eats, she has issues with choking and coughing. She denies the sensation of food getting stuck however she states that it appears as if she "regurgitates". Speech therapy has seen and evaluated the patient. We will continue aspiration precautions. Continue Unasyn. Viral respiratory cultures are negative. Blood cultures negative. On examination, patient was moist, hacking, nonproductive cough. Will increase her Codeine dosage as she states it has been slightly effective. Fair to good aeration throughout with coarse sounds noted. Mucinex has been ineffective, so acetylcysteine and chest physiotherapy were added yesterday yet the patient continues to have a moist, hacking, unproductive cough. Of note, this is her third admission in 2 weeks for difficulty breathing- will bring [facility] onboard for tomorrow. ITS Impressions Chest X-Ray 01/10/17 17:13 IMPRESSION: Findings as above which may represent mild congestive heart failure. D/ / Em Do MD / Em Do MD Interpreting Provider: Em Do MD Chest CT 01/10/17 19:54 IMPRESSION: Patchy bilateral airspace opacities and consolidation in the lower lobes, consistent with pneumonia. Given their appearance, aspiration should be considered as an etiology. Mild ground-glass opacities in both upper lobes, which could be related to mild pulmonary edema versus an infectious process. Mild cardiomegaly. Coronary atherosclerosis. D/ / 01/10/2017 21:06:33 Dennis Bartlett MD / earnold Interpreting Provider: Dennis Bartlett MD Qualifiers: Aspiration pneumonia type: unspecified Laterality: unspecified laterality Lung location: upper lobe of lung Qualified Code(s): J69.0 - Pneumonitis due to inhalation of food and vomit (2) CHF (congestive heart failure) Current Visit: No Status: Chronic Assessment and plan: She appears to have been in a mild exacerbation upon presentation however she currently appears euvolemic on examination. Trace, nonpitting edema noted to bilateral lower extremities which the patient states is baseline for her. Chronic diastolic heart failure. Qualifiers: Congestive heart failure type: diastolic Congestive heart failure chronicity: acute on chronic Qualified Code(s): I50.33 - Acute on chronic diastolic (congestive) heart failure (3) Leukocytosis Current Visit: No Status: Acute Assessment and plan: Trending down. We will continue to trend. Of note, she was on steroids outpatient as well which could be contributing to her marked leukocytosis of 34 upon arrival. Qualifiers: Leukocytosis type: unspecified Qualified Code(s): D72.829 - Elevated white blood cell count, unspecified (4) CAD (coronary artery disease) Current Visit: No Status: Chronic Qualifiers: Coronary Disease-Associated Artery/Lesion type: [place] artery [place] vs. transplanted heart: [place] heart Associated angina: without angina Qualified Code(s): I25.10 - Atherosclerotic heart disease of [place] coronary artery without angina pectoris (5) COPD (chronic obstructive pulmonary disease) Current Visit: No Status: Chronic Assessment and plan: Clinical picture more consistent with aspiration pneumonia. She does not appear to be in acute exacerbation of her COPD. Continue bronchodilators, expectorants, Unasyn. Viral panel negative; sputum culture still pending. Qualifiers: COPD type: emphysema Emphysema type: unspecified Qualified Code(s): J43.9 - Emphysema, unspecified (6) ESRD on hemodialysis Current Visit: No Status: Chronic Assessment and plan: Nephrology on board. Dialysis Wednesday. UF added today with goal of 4kg fluid removal. HD again tomorrow. Hyperkalemia trending down and renal functioning stable. (7) HTN (hypertension) Current Visit: No Status: Chronic Assessment and plan: Borderline hypertensive at times during her coughing fits. At home, she is on furosemide 80 mg twice a day, carvedilol 12.5 mg twice a day, amlodipine 5 mg daily. Her carvedilol and amlodipine have been continued and her furosemide will be continued today at half of her home dose. We will continue to trend and adjust her medications as indicated. Qualifiers: Hypertension type: essential hypertension Qualified Code(s): I10 - Essential (primary) hypertension (8) Venous stasis dermatitis of both lower extremities Current Visit: No Status: Chronic (9) Diabetes type 2, uncontrolled Current Visit: No Status: Chronic Assessment and plan: Uncontrolled with an A1c last month of 11.1%. Hyperglycemic likely secondary to steroids and increased stress has improved. 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 Chronic kidney disease stage: on chronic dialysis Qualified Code(s): E11.22 - Type 2 diabetes mellitus with diabetic chronic kidney disease; E11.65 - Type 2 diabetes mellitus with hyperglycemia; N18.6 - End stage renal disease; Z99.2 - Dependence on renal dialysis (10) DVT prophylaxis Current Visit: No Status: Acute Assessment and plan: Subcutaneous heparin (11) Anemia of chronic disease Current Visit: No Status: Chronic Assessment and plan: Currently slightly improved from her baseline, we will continue to trend (12) Chronic respiratory failure Current Visit: No Status: Chronic Qualifiers: Respiratory failure complication: unspecified whether with hypoxia or hypercapnia Qualified Code(s): J96.10 - Chronic respiratory failure, unspecified whether with hypoxia or hypercapnia (13) Multiple contusions Current Visit: No Status: Acute Assessment and plan: Patient with several areas of ecchymosis to her left and right upper extremities. RUE around dialysis site negative for DVT. (14) Tobacco abuse Current Visit: No Status: Chronic Assessment and plan: Patient states she stopped smoking approximately one month ago however she states that since she has been discharged from the hospital last week, she has been smoking (15) Generalized weakness Current Visit: No Status: Acute Assessment and plan: OT and PT consultations have recommended home health. resident services supervisor on board. (16) H/O noncompliance with medical treatment, presenting hazards to health Current Visit: No Status: Chronic (17) DESHAWN (obstructive sleep apnea) Current Visit: No Status: Chronic Assessment and plan: CPAP while asleep (18) Morbid obesity with BMI of 40.0-44.9, adult Current Visit: Yes Status: Chronic - Subjective Interval history: Patient seen and examined upon her return from nephrology procedure. On examination, patient resting on her side in bed initially asleep. She awakens easily to voice and stated she felt miserable. She complained of pain "all over." She continues to endorse shortness of breath above her normal as well as a persistent, hacking, nonproductive, painful cough. - Constitutional Vitals: Temp Pulse Resp BP Pulse Ox 98.1 F 83 18 182/68 97 01/14/17 19:01 01/14/17 19:01 01/14/17 19:01 01/14/17 19:01 01/14/17 19:01 General appearance: Present: cooperative, mild distress (moderate), A&O X 3, morbidly obese, pleasant, answers questions appropriately - Head Head exam: Present: atraumatic, normocephalic - Eye Eye exam: Present: PERRL, conjuntiva pink, sclera anicteric Pupils: Present: PERRL - Neck Neck exam general surgery: Present: supple, trachea midline. Absent: lymphadenopathy - Respiratory Respiratory exam: Present: decreased breath sounds, prolonged expiratory phase, respiratory distress (mild to moderate), rhonchi, wheezes. Absent: accessory muscle use, rales - Cardiovascular Cardiovascular exam: Present: RRR, +S1, +S2. Absent: diastolic murmur, gallop, rubs, systolic murmur - GI/Abdominal GI/Abdominal exam: Present: normal bowel sounds, soft, no peritoneal signs. Absent: distended, tenderness - Extremities Exam Extremities exam: Present: warm, radial pulses palpable and symetrical. Absent : calf tenderness, cyanotic, pedal edema - Neurological Exam Neurological exam: Present: alert, CN II-XII intact, oriented X3, no focal deficits, strengths equal and symetr throughout. Absent: pronater drift, facial droop, speech deficit - Skin Skin exam: Present: dry, intact, pallor, warm - Expanded Skin Exam Type of lesion: Present: abrasion Distribution of rash: Present: ESE LEWIS Description of rash: Present: erythematous (ecchymotic) Internal Medicine: Result - Labs CBC & Chem 7: 01/14/17 05:08 01/14/17 05:08 Labs: Short CBC 01/14/17 Range/Units 05:08 WBC 11.8 H (4.3-11.1) K/mcL Hgb 10.6 L (11.5-15.4) g/dL Hct 33.8 L (35.3-44.9) % Plt Count 180 (140-400) K/mcL Neutrophils # 10.4 H (1.6-8.9) K/mcL BMP 01/14/17 05:08 Sodium 133 L Potassium 5.0 H Chloride 99 Carbon Dioxide 23 BUN 65 H D Creatinine 1.99 H Glucose 246 H Calcium 8.8 - ABG Interpretation ABG results: ABG ABG pH 7.44 pH Units (7.32-7.45) 01/10/17 20:15 ABG pCO2 33 mmHg (35-45) L 01/10/17 20:15 ABG pO2 159 mmHg (85-104) H 01/10/17 20:15 ABG O2 Saturation 100 % (95-98) H 01/10/17 20:15 PT/INR, D-dimer PT 10.3 Seconds (9.4-12.1) 01/11/17 04:40 - VTE Documentation of Mechanical Device: Intermittent pneumatic compression device Consult Discharge Plan - Plan Referrals: Tristen Quintana MD [Primary Care Provider] - 01/20/17 5:00 pm
[2017-01-14] MEDS ORDERED: *HR* Acetaminophen w/Cod 300-30 mg 1 TAB TABLET PO PRN (19:18)
[2017-01-14] MEDS ORDERED: *HR* Morphine 2 MG/ML SYRINGE IVP PRN (19:20)
[2017-01-14] MEDS ORDERED: *HR* OxyCODONE/APAP 10/325 TABLET PO PRN (19:22)
[2017-01-14] MEDS: *HR* OxyCODONE ER (12 HR) 20 MG TABLET PO SCH (19:50)
[2017-01-14] MEDS: ARIPiprazole 10 MG TABLET PO SCH (19:51)
[2017-01-14] MEDS: Benzonatate 100 MG CAPSULE PO SCH (19:51)
[2017-01-14] MEDS: Furosemide 40 MG TABLET PO SCH (19:52)
[2017-01-14] MEDS: Colestipol Hcl [Colestid] 1 GM PO SCH (19:57)
[2017-01-15 03:22] LABS: Basophils % 0.1 %; Hematocrit 37.3 % (35.3-44.9); Hemoglobin 11.8 g/dL (11.5-15.4); Immature Granulocytes % 1.5 % (0-4); Lymphocytes # 0.7 K/mcL (0.6-4.6); Mean Corpuscular HGB Conc 31.6 g/dL (31.6-35.5); Mean Corpuscular Hemoglobin 25.9 pg (28.0-33.3); Mean Corpuscular Volume 81.8 fL (83.0-100.0); Mean Platelet Volume 11.1 fL (9.4-12.4); Monocytes # 0.4 K/mcL (0.0-1.3); Monocytes % 3.3 %; Neutrophils # 11.6 K/mcL (1.6-8.9); Platelet Count 183 K/mcL (140-400); Red Blood Count 4.56 M/mcL (3.82-4.97); Red Cell Distribution Width 15.9 % (11.5-14.5); Segmented Neutrophils % 90.1 %
[2017-01-15 03:37] LABS: Calcium 9.2 mg/dL (8.6-10.8)
[2017-01-15 03:39] LABS: Potassium 5.7 mEq/L (3.5-4.5)
[2017-01-15] MEDS: Ipratropium/Albuterol Neb 3 ML IH SCH ×4 (05:07→22:56)
[2017-01-15] MEDS: Acetylcysteine 10% 2 ML INHSOL IH SCH ×4 (05:07→22:56)
[2017-01-15] MEDS: Ampicillin/Sulbactam 3,000 MG in 0.9 % Sodium Chloride Mini Bag 100 ML IVPB SCH ×2 (05:22→17:13)
[2017-01-15] MEDS: *HR* Heparin 5,000 UNIT/ML VIAL SQ SCH ×2 (05:26→17:13)
[2017-01-15] MEDS: MethylPREDNISolone 40 MG/ML VIAL IVP SCH ×2 (05:26→17:13)
[2017-01-15] MEDS ORDERED: 0.9 % Sodium Chloride 250 ML IVC PRN (07:47)
--- NOTE | 2017-01-15 08:53 | Nephrology Progress Note ---
Date of Encounter: 01/15/17 Time of Encounter: 08:50 - Assessment and Plan (1) ESRD (end stage renal disease) Current Visit: Yes Status: Chronic HD today for clearance and volume. Will plan for a goal 4kg of UF today. S/p UF yesterday and tolerated 4kg. Hyperkalemia: HD on first shift to provide the clearance. I counseled her to re- focus on a low K+ diet. On pulmonary exam, she has significant rhonchi. As per primary Renal diet. Will be available this weekend, if needed. Thank you. (2) Dyspnea Current Visit: Yes Status: Acute See above Qualifiers: Dyspnea type: shortness of breath Qualified Code(s): R06.02 - Shortness of breath (3) Morbid obesity with BMI of 40.0-44.9, adult Current Visit: Yes Status: Chronic Chronic. (4) Edema Current Visit: No Status: Chronic I have been challenging her volume status/edema with back to back HD/UF and now HD today. This has helped also somewhat with her breathing she said. Next HD after today, I will tentatively plan for Wednesday Qualifiers: Edema type: generalized Qualified Code(s): R60.1 - Generalized edema Subjective Principal diagnosis: Shortness of breath Interval history: Pt was s/e earlier this AM. She did not affirm any dialysis related symptoms of cramping or N/V, and she denied any cramping from the UF yesterday. She voiced feeling slightly better today after having back to back treatments of fluid removal. Objective - Vital Signs Vital signs: Vital Signs Temp Pulse Resp BP Pulse Ox 01/15/17 06:39 97.4 F L 86 16 196/78 95 01/15/17 05:08 16 99 01/15/17 03:23 98.2 F 82 14 158/67 99 01/14/17 23:26 98.3 F 86 14 162/61 99 01/14/17 22:40 20 98 01/14/17 20:00 97 01/14/17 19:01 98.1 F 83 18 182/68 97 01/14/17 15:31 97.7 F 84 16 152/53 98 01/14/17 15:28 18 97 01/14/17 13:10 97.2 F L 18 148/76 01/14/17 12:55 142/78 01/14/17 12:40 115/69 01/14/17 12:25 150/69 01/14/17 12:10 154/73 01/14/17 11:55 148/62 01/14/17 11:40 145/64 01/14/17 11:25 113/58 01/14/17 11:10 159/74 01/14/17 10:55 154/41 01/14/17 10:40 124/58 01/14/17 10:25 92/45 01/14/17 10:10 93/45 01/14/17 09:55 156/61 01/14/17 09:40 97.7 F 18 156/61 Intake and Output 01/14/17 01/15/17 01/15/17 23:59 07:59 15:59 Intake Total 220 / 220 Output Total 400 / 400 Balance -180 / -180 Intake: IV Fluids 100 / 100 Unasyn 3,000 MG In 0.9 % 100 / 100 Sodium Chloride (Mini-Bag +) 100 ML @ 200 mls/hr IVPB Q12HR NATALIE Rx#: [id number] Oral 120 / 120 Output: Urine 400 / 400 Other: Meal Dinner Percent of Meal Consumed 100% # Voids 1 # Urine Diapers 1 Weight 128.094 kg Blood Glucose* 284 242 Patient Weight 01/15/17 23:59 Weight 128.094 kg - General Appearance General appearance: Present: well-developed, well-nourished, obese, chronically ill, frail EENT: Present: ATNC, PERRL, mucous membranes moist Neck: Present: supple Respiratory: Present: rales, course breath sounds, rhonchi Cardiology: Present: edema (but improving in the LE with wrinkling of the skin in the pretibial region noted b/l. ) Gastrointestinal: Present: normoactive bowel sounds, no guarding, obese Integumentary: Present: no rash, warm and dry Neurologic: Present: no focal deficit, no asterixis, alert and oriented x3 Musculoskeletal: Present: no deformities, no erythema, no cyanosis Psychiatric: Present: mood/affect appropriate, cooperative - Lab 01/15/17 02:52 01/15/17 02:52 Most recent lab results ABG pH 7.44 pH Units (7.32-7.45) 01/10/17 20:15 ABG pCO2 33 mmHg (35-45) L 01/10/17 20:15 ABG pO2 159 mmHg (85-104) H 01/10/17 20:15 ABG HCO3 22.4 mEQ/L (21-27) 01/10/17 20:15 ABG O2 Saturation 100 % (95-98) H 01/10/17 20:15 Calcium 9.2 mg/dL (8.6-10.8) 01/15/17 02:52 Phosphorus 3.6 mg/dL (2.3-4.7) 01/14/17 05:08 Magnesium 1.9 mg/dL (1.6-2.6) 01/11/17 04:40 - VTE Documentation of Mechanical Device: Intermittent pneumatic compression device Consult Discharge Plan - Plan Referrals: Tristen Quintana MD [Primary Care Provider] - 01/20/17 5:00 pm
[2017-01-15] MEDS ORDERED: metOLazone 2.5 MG TABLET PO SCH (09:00)
[2017-01-15] MEDS ORDERED: 0.9 % Sodium Chloride 2,000 ML ONE (09:00)
[2017-01-15] MEDS: Insulin LISPRO 300 UNITS/3 ML VIAL SQ SCH ×4 (09:09→20:42)
[2017-01-15] MEDS: Insulin DETEMIR 100 UNIT/ML X5UNITS SQ SCH ×2 (09:09→20:42)
[2017-01-15] MEDS: Colestipol Hcl [Colestid] 1 GM PO SCH ×2 (10:18→20:43)
[2017-01-15] MEDS: Furosemide 40 MG TABLET PO SCH (10:18)
--- NOTE | 2017-01-15 10:51 | Pulmonology Consult Note ---
<Lashell Hill - Last Filed: 01/15/17 11:33> Date of Encounter: 01/15/17 Time of Encounter: 10:43 Assessment and Plan (1) Aspiration pneumonia Current Visit: Yes Status: Acute Patient presented complaining of shortness of breath, productive cough and subjective fever for one week. CT scan done on admission showed patchy BL airspace opacities and consolidation in the lower lobes consistent with pneumonia, possibly aspiration. Patient has been admitted 4 times in the last 2 months, all for complaints related to breathing. This morning, patient has a wet, hacking cough but isnot bringing anything up. On exam, lungs diminished bilaterally with bilateral rhonchi. Patient is at her baseline oxygen requirement and reports that her breathing is better than on admission. Believe that patient's repeated admissions due to respiratory complaints are secondary to patient continuing to smoke and possibly chronic aspiration. However, with these repeated admissions and underlying disease, bronchoscopy for further evaluation is warrented. Discussed risks and benefits of procedure with patient and she is in agreement with proceeding, consent signed. Will plan for bronchoscopy today. Patient should be NPO for the procedure. 1. Bronchoscopy today 2. Continue unasyn for antibiotic coverage 3. Acetylcystine and Chest PT. May also try Acapella to help bring up sputum. 4. Supplemental O2 as needed. Patient currently at baseline requirement. 5. Agree with aspiration precautions and speech recommendations. Qualifiers: Aspiration pneumonia type: unspecified Laterality: unspecified laterality Lung location: upper lobe of lung Qualified Code(s): J69.0 - Pneumonitis due to inhalation of food and vomit (2) COPD (chronic obstructive pulmonary disease) Current Visit: No Status: Chronic Patient with underlying COPD on spiriva and ventolin at home. She reports shortness of breath and cough worse than baseline consistant with COPD exacerbation secondary to pneumonia. Continue bronchodilators and antibiotics. 1. Continue Duoeb breathing treatments 2. Wean steroids. 3. Supplemental O2 as needed. Patient currently at baseline requirement. Qualifiers: COPD type: emphysema Emphysema type: unspecified Qualified Code(s): J43.9 - Emphysema, unspecified (3) CHF (congestive heart failure) Current Visit: No Status: Chronic Patient with underlying CHF. Management per primary team Qualifiers: Congestive heart failure type: diastolic Congestive heart failure chronicity: acute on chronic Qualified Code(s): I50.33 - Acute on chronic diastolic (congestive) heart failure (4) ESRD (end stage renal disease) on dialysis Current Visit: No Status: Chronic Patient with ESRD on hemodialysis. Management per nephrology. (5) DVT prophylaxis Current Visit: No Status: Acute Heparin for DVT prophylaxis. History of Present Illness Consult date: 01/15/17 Reason for consult: dyspnea, COPD, pneumonia Chief complaint: Shortness of breath History of present illness: Ms Riley is a 61yo female with PMH including DM, ESRD on HD, and COPD on home O2 at 3L. Patient presented complaining of shortness of breath, productive cough and subjective fever for one week. CT scan done on admission showed patchy BL airspace opacities and consolidation in the lower lobes consistent with pneumonia, possibly aspiration. Also mild ground-glass opacities in both upper lobes. Patient started on unasyn for antibiotic coverage. Patient has been admitted 4 times in the last 2 months, all for complaints related to breathing. This morning, patient is awake and alert. She states that she is still coughing but not bringing anything up. She is short of breath but she says is much better than when she was admitted. On exam, patient has wet, hacking cough. Lungs diminished bilaterally with bilateral rhonchi. On discussion with patient, she reports that she has been diagnosed with COPD and is on home oxygen, managed by her primary care provider. She has never see a statement services representative. She uses ventolin rescue inhaler and spiriva while at home. Izabella is still smoking close to 1ppd. She also reports chocking and coughing with swallowing. She states that the food is not getting stuck but that it comes back up. She takes Pepcid for her acid reflux. Past Med Surg Social Fam HX - Past Medical History Medical history: arthritis, atrial fibrillation, CHF, COPD, coronary artery disease, CVA, DVT, diabetes, dialysis, fibromyalgia, GERD, hyperlipidemia, hypertension, kidney stones, migraine, myocardial infarction, osteoporosis, peripheral artery disease, renal disease, other Psychiatric history: anxiety - Past Surgical History Surgical History: angioplasty/stent, appendectomy, cholecystectomy, coronary bypass (CABG), hysterectomy, knee replacement, other, IVC filter - Social History Smoking Status: Current every day smoker Packs per day: 1 Smokeless Tobacco Status: No Alcohol use: none Drug use: none - Family History Father Living Status: Hx Family Cardiac Disorders: Yes Hx Family Endocrine Disorder: Yes Mother Living Status: Still Living Hx Family Respiratory Disorders: Yes (end stage copd) Medications and Allergies Amitriptyline [Elavil] 100 mg PO HS 05/11/15 [History] Clopidogrel [Plavix] 75 mg PO DAILY 05/11/15 [History] Omeprazole [PriLOSEC] 20 mg PO BID 05/11/15 [History] Rosuvastatin [Crestor] 40 mg PO HS 05/11/15 [History] Sevelamer [Renvela] 800 mg PO TIDWM 05/11/15 [History] Aripiprazole [Abilify] 10 mg PO HS 06/12/15 [History] Colestipol HCl [Colestid] 1 gm PO BID 06/12/15 [History] Carvedilol 12.5 mg PO BID 10/28/15 [History] Amlodipine [Norvasc] 5 mg PO DAILY 06/09/16 [History] Insulin Glargine,Hum.rec.anlog [Lantus Solostar] 60 unit SQ BID 06/09/16 [ History] Gabapentin [Neurontin] 200 mg PO TID 30 Days 06/18/16 [Rx] Calcium Acetate [Phos-LO] 667 mg PO TIDWM 09/06/16 [History] Furosemide [Lasix] 80 mg PO BID 09/06/16 [History] Insulin LISPRO [Humalog] 20 unit SQ TIDWM PRN 09/06/16 [History] Metolazone [Zaroxolyn] 2.5 mg PO MOWEFR 09/06/16 [History] OxyCODONE/APAP 10/325 [Percocet 10/325 MG] 1 each PO Q6H PRN #10 tablet [Rx] Albuterol Sulfate [Ventolin Hfa] 2 puff IH Q4H PRN 12/29/16 [History] Ondansetron ODT [Zofran ODT] 4 mg SL Q8HR PRN 12/29/16 [History] Acetaminophen w/Cod 300-30 mg [Tylenol w/Codeine #3] 1 tab PO Q6HR PRN #12 tablet 12/30/16 [Rx] Benzonatate [Tessalon] 200 mg PO TID PRN #40 capsule 12/30/16 [Rx] Guaifenesin [Guaifenesin ER] 1,200 mg PO BID #10 tab.er.12h 12/30/16 [Rx] Oxycodone HCl [Oxycontin] 60 mg PO Q12H 12/31/16 [History] Tiotropium [Spiriva] 1 puff IH DAILY 01/12/17 [History] Allergies No Known Allergies Allergy (Verified 01/12/17 11:29) All Systems: A 10-system review of systems was performed and is negative for pertinent findings except as documented above in the HPI. - Constitutional Constitutional: chills, fever(s) - EENT Eyes: no loss of vision Ears: no decreased hearing Nose, mouth and throat: dizziness, nasal congestion, no headache(s) - Cardiovascular Cardiovascular: dyspnea, dyspnea on exertion, no chest pain, no lightheadedness , no palpitations - Respiratory Respiratory: cough, dyspnea, dyspnea on exertion, chest congestion, no hemoptysis - Gastrointestinal Gastrointestinal: no abdominal pain, no diarrhea, no nausea, no vomiting - Neurological Neurological: no confusion, no headache(s) Physical Examination General appearance: no acute distress, alert Eyes: nonicteric ENT: oropharynx moist Effort: normal Auscultation: bilateral: diminished breath sounds, rhonchi Cardiovascular: regular rate and rhythm Gastrointestinal: soft, non-tender, non-distended Integumentary: normal Extremities: no cyanosis normal mental status, non-focal exam mood appropriate, affect normal Results - Laboratory Findings CBC and BMP: 01/15/17 02:52 01/15/17 02:52 ABG ABG pH 7.44 pH Units (7.32-7.45) 01/10/17 20:15 ABG pCO2 33 mmHg (35-45) L 01/10/17 20:15 ABG pO2 159 mmHg (85-104) H 01/10/17 20:15 ABG O2 Saturation 100 % (95-98) H 01/10/17 20:15 PT/INR, D-dimer PT 10.3 Seconds (9.4-12.1) 01/11/17 04:40 Abnormal lab findings: Abnormal lab results WBC 12.9 K/mcL (4.3-11.1) H 01/15/17 02:52 MCV 81.8 fL (83.0-100.0) L 01/15/17 02:52 MCH 25.9 pg (28.0-33.3) L 01/15/17 02:52 RDW 15.9 % (11.5-14.5) H 01/15/17 02:52 Neutrophils # 11.6 K/mcL (1.6-8.9) H 01/15/17 02:52 Hypersegmented Neuts Present (Not Present) A 01/11/17 04:40 APTT 24.0 Seconds (26.0-36.0) L 01/10/17 17:57 ABG pCO2 33 mmHg (35-45) L 01/10/17 20:15 ABG pO2 159 mmHg (85-104) H 01/10/17 20:15 ABG O2 Saturation 100 % (95-98) H 01/10/17 20:15 Sodium 132 mEq/L (136-145) L 01/15/17 02:52 Potassium 5.7 mEq/L (3.5-4.5) H 01/15/17 02:52 Chloride 96 mEq/L (98-109) L 01/15/17 02:52 BUN 97 mg/dL (7-20) H D 01/15/17 02:52 Creatinine 2.58 mg/dL (0.57-1.11) H 01/15/17 02:52 Est GFR ( Amer) 23 (> 60) L 01/15/17 02:52 Est GFR (Non-Af Amer) 19 (> 60) L 01/15/17 02:52 BUN/Creatinine Ratio 38 (6-26) H 01/15/17 02:52 Glucose 294 mg/dL (70-99) H 01/15/17 02:52 POC Glucose 242 (58-89) H 01/15/17 06:37 Calculated Osmolality 315 (280-300) H 01/15/17 02:52 Alkaline Phosphatase 131 Units/L (38-126) H 01/11/17 04:40 B-Natriuretic Peptide 334 pg/mL (0-100) H 01/11/17 04:40 Albumin 2.7 g/dL (3.5-5.0) L 01/11/17 04:40 Globulin 3.9 g/dL (2.4-3.5) H 01/11/17 04:40 Albumin/Globulin Ratio 0.7 (1.1-2.2) L 01/11/17 04:40 - Diagnostic Findings Chest x-ray: report reviewed, image reviewed CT scan - chest: report reviewed, image reviewed Additional studies: Chest X-Ray 01/10/17 17:13 IMPRESSION: Findings as above which may represent mild congestive heart failure. D/ / Em Do MD / Em Do MD Interpreting Provider: Em Do MD Chest CT 01/10/17 19:54 IMPRESSION: Patchy bilateral airspace opacities and consolidation in the lower lobes, consistent with pneumonia. Given their appearance, aspiration should be considered as an etiology. Mild ground-glass opacities in both upper lobes, which could be related to mild pulmonary edema versus an infectious process. Mild cardiomegaly. Coronary atherosclerosis. D/ / 01/10/2017 21:06:33 Dennis Bartlett MD / [place] Interpreting Provider: Dennis Bartlett MD - Clinical Findings Intake & Output: Intake & Output 01/14/17 01/15/17 01/15/17 23:59 07:59 15:59 Intake Total 220 / 220 Output Total 400 / 400 Balance -180 / -180 Weight 128.094 kg Consult Discharge Plan - Plan Referrals: Tristen Quintana MD [Primary Care Provider] - 01/20/17 5:00 pm <Annika Hogue - Last Filed: 01/15/17 23:13> Date of Encounter: 01/15/17 All Systems: A 10-system review of systems was performed and is negative for pertinent findings except as documented above in the HPI. Physical Examination Vital Signs: Vital Signs, Last 4 Hours Temp Pulse Resp BP Pulse Ox 01/15/17 15:48 17 97 01/15/17 15:20 98.3 F 92 17 134/63 97 01/15/17 14:53 85 18 144/54 96 01/15/17 14:48 88 18 164/74 96 01/15/17 14:43 89 18 154/58 95 01/15/17 14:28 90 18 131/62 93 01/15/17 14:19 108 18 157/46 100 01/15/17 13:45 97.4 F L 16 199/67 01/15/17 13:35 198/81 01/15/17 13:20 189/78 01/15/17 13:05 186/72 Results - Laboratory Findings CBC and BMP: 01/15/17 02:52 01/15/17 02:52 ABG ABG pH 7.44 pH Units (7.32-7.45) 01/10/17 20:15 ABG pCO2 33 mmHg (35-45) L 01/10/17 20:15 ABG pO2 159 mmHg (85-104) H 01/10/17 20:15 ABG O2 Saturation 100 % (95-98) H 01/10/17 20:15 PT/INR, D-dimer PT 10.3 Seconds (9.4-12.1) 01/11/17 04:40 Abnormal lab findings: Abnormal lab results WBC 12.9 K/mcL (4.3-11.1) H 01/15/17 02:52 MCV 81.8 fL (83.0-100.0) L 01/15/17 02:52 MCH 25.9 pg (28.0-33.3) L 01/15/17 02:52 RDW 15.9 % (11.5-14.5) H 01/15/17 02:52 Neutrophils # 11.6 K/mcL (1.6-8.9) H 01/15/17 02:52 Hypersegmented Neuts Present (Not Present) A 01/11/17 04:40 APTT 24.0 Seconds (26.0-36.0) L 01/10/17 17:57 ABG pCO2 33 mmHg (35-45) L 01/10/17 20:15 ABG pO2 159 mmHg (85-104) H 01/10/17 20:15 ABG O2 Saturation 100 % (95-98) H 01/10/17 20:15 Sodium 132 mEq/L (136-145) L 01/15/17 02:52 Potassium 5.7 mEq/L (3.5-4.5) H 01/15/17 02:52 Chloride 96 mEq/L (98-109) L 01/15/17 02:52 BUN 97 mg/dL (7-20) H D 01/15/17 02:52 Creatinine 2.58 mg/dL (0.57-1.11) H 01/15/17 02:52 Est GFR ( Amer) 23 (> 60) L 01/15/17 02:52 Est GFR (Non-Af Amer) 19 (> 60) L 01/15/17 02:52 BUN/Creatinine Ratio 38 (6-26) H 01/15/17 02:52 Glucose 294 mg/dL (70-99) H 01/15/17 02:52 POC Glucose 130 (58-89) H 01/15/17 15:22 Calculated Osmolality 315 (280-300) H 01/15/17 02:52 Alkaline Phosphatase 131 Units/L (38-126) H 01/11/17 04:40 B-Natriuretic Peptide 334 pg/mL (0-100) H 01/11/17 04:40 Albumin 2.7 g/dL (3.5-5.0) L 01/11/17 04:40 Globulin 3.9 g/dL (2.4-3.5) H 01/11/17 04:40 Albumin/Globulin Ratio 0.7 (1.1-2.2) L 01/11/17 04:40 - Clinical Findings Intake & Output: Intake & Output 01/15/17 01/15/17 01/15/17 07:59 15:59 23:59 Intake Total 700 / 700 Output Total 4600 / 4600 Balance -3900 / -3900 Weight 128.094 kg - Attending Attestation I examined this patient and my medical decision-making was reviewed with the PATTERN CHANGER AND REPAIRER/PA/Advanced Practice Nurse/Resident Physician. I agree with the documented findings, disposition and treatment plan as described except to the extent set forth below. Patient seen and examined. Labs, radiology, chart personally reviewed. Agree with resident's history and physical, assessment, plan with following comments: LEARNING SOLUTIONS SPECIALIST: Patient follows commands, Pulmonary: Acceptable oxygenation and ventilation. Discussed with patient about bronchoscopy and explained to her all risks, alternatives and benefits and she agree and understand. Will proceed. Patient advised not to smoke tobacco. Agree with antibiotics coverage and bronchodilators. I suspect patient has aspiration and evaluated for aspiration is recommended.. Thanks for the consult.
[2017-01-15] MEDS ORDERED: *HR* FentaNYL (PF) 100 MCG/2 ML VIAL IVP PRN (13:25)
[2017-01-15] MEDS ORDERED: Tetracaine/Benzocaine/Butamben 200MG/SPRAY (100SPY/BOT) MM ONE (13:25)
[2017-01-15] MEDS ORDERED: *HR* Midazolam HCl 5 MG/5 ML VIAL IVP PRN (13:25)
--- NOTE | 2017-01-15 13:33 | Internal Med Progress Note ---
Date of Encounter: 01/15/17 Time of Encounter: 09:30 - Assessment and plan (1) Aspiration pneumonia Current Visit: Yes Status: Acute Assessment and plan: Patient's codeine dizziness was increased yesterday and she has been able to get a lot more rest than she had prior. She was able to sleep well last night. On examination today, her aeration is improved slightly and she is much less pale and much more alert and interactive. She still remains with coarse wheezing throughout and moist, unproductive cough. Pulmonology now onboard, plan is for a bronchoscopy either later today or tomorrow depending upon her return from dialysis time. We will possibly add Acapella at pulmonology's discretion. Continue Unasyn. Continue with aspiration precautions. 01/14/17 Chest x-ray consistent with bilateral lower lobe aspiration pneumonia. Patient stating that over the last 2-1/2 weeks, when she eats, she has issues with choking and coughing. She denies the sensation of food getting stuck however she states that it appears as if she "regurgitates". Speech therapy has seen and evaluated the patient. We will continue aspiration precautions. Continue Unasyn. Viral respiratory cultures are negative. Blood cultures negative. On examination, patient was moist, hacking, nonproductive cough. Will increase her Codeine dosage as she states it has been slightly effective. Fair to good aeration throughout with coarse sounds noted. Mucinex has been ineffective, so acetylcysteine and chest physiotherapy were added yesterday yet the patient continues to have a moist, hacking, unproductive cough. Of note, this is her third admission in 2 weeks for difficulty breathing- will bring Pul onboard for tomorrow. ITS Impressions Chest X-Ray 01/10/17 17:13 IMPRESSION: Findings as above which may represent mild congestive heart failure. D/ / Em Do MD / Em Do MD Interpreting Provider: Em Do MD Chest CT 01/10/17 19:54 IMPRESSION: Patchy bilateral airspace opacities and consolidation in the lower lobes, consistent with pneumonia. Given their appearance, aspiration should be considered as an etiology. Mild ground-glass opacities in both upper lobes, which could be related to mild pulmonary edema versus an infectious process. Mild cardiomegaly. Coronary atherosclerosis. D/ / 01/10/2017 21:06:33 Dennis Bartlett MD / [place] Interpreting Provider: Dennis Bartlett MD Qualifiers: Aspiration pneumonia type: unspecified Laterality: unspecified laterality Lung location: upper lobe of lung Qualified Code(s): J69.0 - Pneumonitis due to inhalation of food and vomit (2) CHF (congestive heart failure) Current Visit: No Status: Chronic Assessment and plan: She appears to have been in a mild exacerbation upon presentation however she currently appears euvolemic on examination. Trace, nonpitting edema noted to bilateral lower extremities which the patient states is baseline for her. Chronic diastolic heart failure. Of note, patient had UF yesterday with an additional 4 kg removed per nephrology. We will continue to trend. Qualifiers: Congestive heart failure type: diastolic Congestive heart failure chronicity: acute on chronic Qualified Code(s): I50.33 - Acute on chronic diastolic (congestive) heart failure (3) Leukocytosis Current Visit: No Status: Acute Assessment and plan: Trending down. We will continue to trend. Of note, she was on steroids outpatient as well which could be contributing to her marked leukocytosis of 34 upon arrival. Qualifiers: Leukocytosis type: unspecified Qualified Code(s): D72.829 - Elevated white blood cell count, unspecified (4) CAD (coronary artery disease) Current Visit: No Status: Chronic Qualifiers: Coronary Disease-Associated Artery/Lesion type: [place] artery [place] vs. transplanted heart: [place] heart Associated angina: without angina Qualified Code(s): I25.10 - Atherosclerotic heart disease of [place] coronary artery without angina pectoris (5) COPD (chronic obstructive pulmonary disease) Current Visit: No Status: Chronic Assessment and plan: Clinical picture more consistent with aspiration pneumonia. She does not appear to be in acute exacerbation of her COPD. Continue bronchodilators, expectorants, Unasyn. Viral panel negative; sputum culture still pending. She does continue to smoke. Qualifiers: COPD type: emphysema Emphysema type: unspecified Qualified Code(s): J43.9 - Emphysema, unspecified (6) ESRD on hemodialysis Current Visit: No Status: Chronic Assessment and plan: Nephrology on board. Dialysis Wednesday. UF added yesterday with goal of 4kg fluid removal. HD again today. Mild acute kidney injury noted overnight, furosemide held today. (7) HTN (hypertension) Current Visit: No Status: Chronic Assessment and plan: Borderline hypertensive at times during her coughing fits. At home, she is on furosemide 80 mg twice a day, carvedilol 12.5 mg twice a day, amlodipine 5 mg daily. Her carvedilol and amlodipine have been continued and her furosemide was initially continued but now will be held due to renal functioning. We will continue to trend and adjust her medications as indicated. Qualifiers: Hypertension type: essential hypertension Qualified Code(s): I10 - Essential (primary) hypertension (8) Venous stasis dermatitis of both lower extremities Current Visit: No Status: Chronic (9) Diabetes type 2, uncontrolled Current Visit: No Status: Chronic Assessment and plan: Uncontrolled with an A1c last month of 11.1%. Hyperglycemic likely secondary to steroids and increased stress continues to improve. She is on high-dose sliding scale and her basal was increased 2 days ago Qualifiers: Diabetes mellitus complication status: with kidney complications Diabetes mellitus complication detail: with chronic kidney disease Diabetes mellitus nursing home insulin use: without intermodal dispatcher use Chronic kidney disease stage: on chronic dialysis Qualified Code(s): E11.22 - Type 2 diabetes mellitus with diabetic chronic kidney disease; E11.65 - Type 2 diabetes mellitus with hyperglycemia; N18.6 - End stage renal disease; Z99.2 - Dependence on renal dialysis (10) DVT prophylaxis Current Visit: No Status: Acute Assessment and plan: Subcutaneous heparin (11) Anemia of chronic disease Current Visit: No Status: Chronic Assessment and plan: Currently slightly improved from her baseline, we will continue to trend (12) Chronic respiratory failure Current Visit: No Status: Chronic Qualifiers: Respiratory failure complication: unspecified whether with hypoxia or hypercapnia Qualified Code(s): J96.10 - Chronic respiratory failure, unspecified whether with hypoxia or hypercapnia (13) Multiple contusions Current Visit: No Status: Acute Assessment and plan: Patient with several areas of ecchymosis to her left and right upper extremities. RUE around dialysis site negative for DVT. (14) Tobacco abuse Current Visit: No Status: Chronic Assessment and plan: Patient states she stopped smoking approximately one month ago however she states that since she has been discharged from the hospital last week, she has been smoking (15) Generalized weakness Current Visit: No Status: Acute Assessment and plan: OT and PT consultations have recommended home health. enrollment services dean on board. (16) H/O noncompliance with medical treatment, presenting hazards to health Current Visit: No Status: Chronic (17) DESHAWN (obstructive sleep apnea) Current Visit: No Status: Chronic Assessment and plan: CPAP while asleep (18) Morbid obesity with BMI of 40.0-44.9, adult Current Visit: Yes Status: Chronic - Subjective Interval history: Patient seen and examined. On examination, patient sitting upright in bed. She is alert and oriented x3 and is much more alert and interactive today. She states after her codeine doses was increased, she was able to sleep much better last night and states that she was not up all night coughing and she had been the prior nights. - Constitutional Vitals: Temp Pulse Resp BP Pulse Ox 97.4 F L 86 16 181/77 95 01/15/17 10:05 01/15/17 06:39 01/15/17 10:05 01/15/17 12:50 01/15/17 06:39 General appearance: Present: cooperative, mild distress (moderate), A&O X 3, morbidly obese, pleasant, answers questions appropriately - Head Head exam: Present: atraumatic, normocephalic - Eye Eye exam: Present: PERRL, conjuntiva pink, sclera anicteric Pupils: Present: PERRL - Neck Neck exam general surgery: Present: supple, trachea midline. Absent: lymphadenopathy - Respiratory Respiratory exam: Present: accessory muscle use, decreased breath sounds, respiratory distress, rhonchi, wheezes. Absent: CTAB, rales - Cardiovascular Cardiovascular exam: Present: RRR, +S1, +S2. Absent: diastolic murmur, gallop, rubs, systolic murmur - GI/Abdominal GI/Abdominal exam: Present: normal bowel sounds, soft, no peritoneal signs. Absent: distended, tenderness - Extremities Exam Extremities exam: Present: pedal edema (Trace, nonpitting), warm, radial pulses palpable and symetrical. Absent: calf tenderness, cyanotic - Neurological Exam Neurological exam: Present: alert, CN II-XII intact, oriented X3, no focal deficits, strengths equal and symetr throughout. Absent: pronater drift, facial droop, speech deficit - Skin Skin exam: Present: dry, intact, normal color, warm Internal Medicine: Result - Labs CBC & Chem 7: 01/15/17 02:52 01/15/17 02:52 Labs: Short CBC 01/15/17 Range/Units 02:52 WBC 12.9 H (4.3-11.1) K/mcL Hgb 11.8 (11.5-15.4) g/dL Hct 37.3 (35.3-44.9) % Plt Count 183 (140-400) K/mcL Neutrophils # 11.6 H (1.6-8.9) K/mcL BMP 01/15/17 02:52 Sodium 132 L Potassium 5.7 H Chloride 96 L Carbon Dioxide 22 BUN 97 H D Creatinine 2.58 H Glucose 294 H Calcium 9.2 - ABG Interpretation ABG results: ABG ABG pH 7.44 pH Units (7.32-7.45) 01/10/17 20:15 ABG pCO2 33 mmHg (35-45) L 01/10/17 20:15 ABG pO2 159 mmHg (85-104) H 01/10/17 20:15 ABG O2 Saturation 100 % (95-98) H 01/10/17 20:15 PT/INR, D-dimer PT 10.3 Seconds (9.4-12.1) 01/11/17 04:40 - VTE Documentation of Mechanical Device: Intermittent pneumatic compression device Consult Discharge Plan - Plan Referrals: Tristen Quintana MD [Primary Care Provider] - 01/20/17 5:00 pm
[2017-01-15] MEDS ORDERED: *HR* Midazolam HCl 5 MG/5 ML VIAL IVP ONE (14:20)
[2017-01-15] MEDS ORDERED: *HR* FentaNYL (PF) 100 MCG/2 ML VIAL ONE (14:21)
[2017-01-15] MEDS ORDERED: Lidocaine Viscous Oral Soln 15 ML SOLUTION ONE (14:21)
[2017-01-15] MEDS ORDERED: 0.9 % Sodium Chloride 1,000 ML IVC SCH (14:30)
[2017-01-15] MEDS: hydrALAZINE 25 MG TABLET PO SCH ×2 (14:42→20:42)
[2017-01-15] MEDS: Gabapentin 100 MG CAPSULE PO SCH ×3 (14:52→20:42)
[2017-01-15] MEDS ORDERED: Lidocaine Viscous Oral Soln 15 ML SOLUTION MM ONE (14:55)
[2017-01-15] MEDS: Sennosides 8.6 MG TABLET PO SCH ×2 (14:59→20:43)
[2017-01-15] MEDS: *HR* OxyCODONE ER (12 HR) 20 MG TABLET PO SCH ×2 (14:59→20:43)
[2017-01-15] MEDS: Benzonatate 100 MG CAPSULE PO SCH ×3 (15:00→20:43)
[2017-01-15] MEDS: amLODIPine 5 MG TABLET PO SCH (17:11)
[2017-01-15] MEDS: Famotidine 20 MG TABLET PO SCH (17:11)
[2017-01-15 17:25] LABS: Appearance of Body Fluid Cloudy (Clear); Volume of Body Fluid 15 mL
[2017-01-15 17:26] LABS: Appearance of Body Fluid Cloudy (Clear); Volume of Body Fluid 15 mL
[2017-01-15] MEDS: ARIPiprazole 10 MG TABLET PO SCH (20:41)
[2017-01-16] MEDS: Ipratropium/Albuterol Neb 3 ML IH SCH ×2 (03:57→09:57)
[2017-01-16] MEDS: Acetylcysteine 10% 2 ML INHSOL IH SCH ×2 (03:57→09:57)
[2017-01-16 04:19] LABS: Basophils % 0.1 %; Hematocrit 37.4 % (35.3-44.9); Hemoglobin 11.9 g/dL (11.5-15.4); Immature Granulocytes % 0.8 % (0-4); Lymphocytes % 5.4 %; Mean Corpuscular HGB Conc 31.8 g/dL (31.6-35.5); Mean Corpuscular Hemoglobin 25.5 pg (28.0-33.3); Mean Corpuscular Volume 80.3 fL (83.0-100.0); Mean Platelet Volume 10.7 fL (9.4-12.4); Monocytes # 0.6 K/mcL (0.0-1.3); Monocytes % 3.2 %; Neutrophils # 17.4 K/mcL (1.6-8.9); Platelet Count 170 K/mcL (140-400); Red Blood Count 4.66 M/mcL (3.82-4.97); Red Cell Distribution Width 15.9 % (11.5-14.5); Segmented Neutrophils % 90.5 %
[2017-01-16 04:35] LABS: Calcium 9.1 mg/dL (8.6-10.8); Potassium 5.3 mEq/L (3.5-4.5)
[2017-01-16] MEDS: Ampicillin/Sulbactam 3,000 MG in 0.9 % Sodium Chloride Mini Bag 100 ML IVPB SCH (06:23)
[2017-01-16] MEDS: *HR* Heparin 5,000 UNIT/ML VIAL SQ SCH (06:23)
[2017-01-16] MEDS: MethylPREDNISolone 40 MG/ML VIAL IVP SCH (06:23)
[2017-01-16] MEDS: Insulin LISPRO 300 UNITS/3 ML VIAL SQ SCH ×2 (08:05→11:52)
[2017-01-16] MEDS: *HR* OxyCODONE ER (12 HR) 20 MG TABLET PO SCH (08:06)
[2017-01-16] MEDS: Famotidine 20 MG TABLET PO SCH (08:07)
[2017-01-16] MEDS: hydrALAZINE 25 MG TABLET PO SCH (08:07)
[2017-01-16] MEDS: amLODIPine 5 MG TABLET PO SCH (08:07)
[2017-01-16] MEDS: Benzonatate 100 MG CAPSULE PO SCH (08:07)
[2017-01-16] MEDS: Gabapentin 100 MG CAPSULE PO SCH (08:07)
[2017-01-16] MEDS: Sennosides 8.6 MG TABLET PO SCH (08:08)
[2017-01-16] MEDS: Colestipol Hcl [Colestid] 1 GM PO SCH (08:08)
[2017-01-16] MEDS: Insulin DETEMIR 100 UNIT/ML X5UNITS SQ SCH (08:20)
--- NOTE | 2017-01-16 09:55 | Event Note ---
Date of Encounter: 01/16/17 Time of Encounter: 09:53 Nephrology Chart Review The pt completed HD yesterday (Wednesday) and had back to back HD, UF, HD (on Wednesday, , Wednesday). Will tentatively plan for HD on Wednesday. Her weights as measured here have dramatically improved from 130kg down to about 120.5kg. She must adhere to a low K+ diet. If any questions, please feel free to contact me the is weekend. Thank you.
--- NOTE | 2017-01-16 10:07 | Pulmonology Progress Note ---
Date of Encounter: 01/16/17 Time of Encounter: 08:40 Assessment and Plan (1) Pneumonia due to Gram-negative bacteria Current Visit: Yes Status: Acute Patient on antibiotic and to tailor it based on the final sensitivity from the culture. (2) COPD (chronic obstructive pulmonary disease) Current Visit: No Status: Chronic Continue bronchodilators. Please call for any questions and can follow up as outpatient. Qualifiers: COPD type: emphysema Emphysema type: unspecified Qualified Code(s): J43.9 - Emphysema, unspecified (3) ESRD on hemodialysis Current Visit: No Status: Chronic Subjective Principal diagnosis: Shortness of breath Interval history: Patient had bronchoscopy with some improvement after that, but now she feels she has sputum and secretion with cough again. Objective PUL Vital signs: Last Vital Signs Temp 97.7 F 01/16/17 06:46 Pulse 76 01/16/17 06:46 Resp 14 01/16/17 06:46 BP 150/65 01/16/17 06:46 Pulse Ox 97 01/16/17 08:19 General appearance: no acute distress Eyes: nonicteric ENT: oropharynx dry Neck: supple Effort: normal Auscultation: bilateral: rhonchi Percussion: bilateral: not dull Cardiovascular: regular rate and rhythm Gastrointestinal: normoactive bowel sounds Extremities: no cyanosis normal mental status, non-focal exam mood appropriate Results - Laboratory Findings CBC and BMP: 01/16/17 02:52 01/16/17 02:52 ABG ABG pH 7.44 pH Units (7.32-7.45) 01/10/17 20:15 ABG pCO2 33 mmHg (35-45) L 01/10/17 20:15 ABG pO2 159 mmHg (85-104) H 01/10/17 20:15 ABG O2 Saturation 100 % (95-98) H 01/10/17 20:15 PT/INR, D-dimer PT 10.3 Seconds (9.4-12.1) 01/11/17 04:40 Abnormal lab findings: Abnormal lab results WBC 19.2 K/mcL (4.3-11.1) H 01/16/17 02:52 MCV 80.3 fL (83.0-100.0) L 01/16/17 02:52 MCH 25.5 pg (28.0-33.3) L 01/16/17 02:52 RDW 15.9 % (11.5-14.5) H 01/16/17 02:52 Neutrophils # 17.4 K/mcL (1.6-8.9) H 01/16/17 02:52 Hypersegmented Neuts Present (Not Present) A 01/11/17 04:40 APTT 24.0 Seconds (26.0-36.0) L 01/10/17 17:57 ABG pCO2 33 mmHg (35-45) L 01/10/17 20:15 ABG pO2 159 mmHg (85-104) H 01/10/17 20:15 ABG O2 Saturation 100 % (95-98) H 01/10/17 20:15 Sodium 133 mEq/L (136-145) L 01/16/17 02:52 Potassium 5.3 mEq/L (3.5-4.5) H 01/16/17 02:52 Chloride 97 mEq/L (98-109) L 01/16/17 02:52 BUN 65 mg/dL (7-20) H D 01/16/17 02:52 Creatinine 2.41 mg/dL (0.57-1.11) H 01/16/17 02:52 Est GFR ( Amer) 25 (> 60) L 01/16/17 02:52 Est GFR (Non-Af Amer) 20 (> 60) L 01/16/17 02:52 BUN/Creatinine Ratio 27 (6-26) H 01/16/17 02:52 Glucose 207 mg/dL (70-99) H 01/16/17 02:52 POC Glucose 213 (58-89) H 01/15/17 20:31 Calculated Osmolality 301 (280-300) H 01/16/17 02:52 Alkaline Phosphatase 131 Units/L (38-126) H 01/11/17 04:40 B-Natriuretic Peptide 334 pg/mL (0-100) H 01/11/17 04:40 Albumin 2.7 g/dL (3.5-5.0) L 01/11/17 04:40 Globulin 3.9 g/dL (2.4-3.5) H 01/11/17 04:40 Albumin/Globulin Ratio 0.7 (1.1-2.2) L 01/11/17 04:40 Fluid Appearance Cloudy (Clear) A 01/15/17 16:00 - Microbiology Findings Microbiology Findings: Microbiology, Last 48 Hours 01/15/17 16:00 Respiratory Culture - Preliminary Right Lower Lobe Lung Gram Negative Camacho 01/15/17 16:00 Gram Stain - Final Left Lower Lobe Lung Respiratory Culture - Preliminary Gram Negative Camacho 01/15/17 16:00 Gram Stain - Final Right Lower Lobe Lung - Clinical Findings Intake & Output: Intake & Output 01/15/17 01/16/17 01/16/17 23:59 07:59 15:59 Intake Total 100 / 100 340 / 340 Output Total 0 / 0 Balance 100 / 100 340 / 340 Weight 120.429 kg - VTE Documentation of Mechanical Device: Intermittent pneumatic compression device Consult Discharge Plan - Plan Referrals: Tristen Quintana MD [Primary Care Provider] - 01/20/17 5:00 pm
--- NOTE | 2017-01-16 10:45 | Discharge Summary ---
Date of Encounter: 01/16/17 Time of Encounter: 09:00 - Discharge Diagnosis (1) Aspiration pneumonia Priority: Primary Status: Acute Comments: Aeration much improved on day of discharge. Status post bronchoscopy and BAL. Cultures appear consistent with gram-negative rods. Treated with Unasyn while admitted, will send home on levofloxacin and will check cultures and adjust medications outpatient if indicated. No increased need for supplemental oxygenation. Qualifiers: Aspiration pneumonia type: unspecified Laterality: unspecified laterality Lung location: upper lobe of lung Qualified Code(s): J69.0 - Pneumonitis due to inhalation of food and vomit (2) CHF (congestive heart failure) Priority: Secondary Status: Chronic Comments: Euvolemic on examination on day of discharge. Follow-up outpatient. Qualifiers: Congestive heart failure type: diastolic Congestive heart failure chronicity: acute on chronic Qualified Code(s): I50.33 - Acute on chronic diastolic (congestive) heart failure (3) Leukocytosis Priority: Primary Status: Acute Comments: Trended down. Of note, she was on steroids outpatient as well which likely contributed to her marked leukocytosis of 34 upon arrival. Qualifiers: Leukocytosis type: unspecified Qualified Code(s): D72.829 - Elevated white blood cell count, unspecified (4) CAD (coronary artery disease) Priority: Secondary Status: Chronic Comments: Patient denied chest pain Qualifiers: Coronary Disease-Associated Artery/Lesion type: [place] artery [place] vs. transplanted heart: [place] heart Associated angina: without angina Qualified Code(s): I25.10 - Atherosclerotic heart disease of [place] coronary artery without angina pectoris (5) COPD (chronic obstructive pulmonary disease) Priority: Secondary Status: Chronic Qualifiers: COPD type: emphysema Emphysema type: unspecified Qualified Code(s): J43.9 - Emphysema, unspecified (6) ESRD on hemodialysis Priority: Secondary Status: Chronic (7) HTN (hypertension) Priority: Secondary Status: Chronic Comments: Borderline hypertensive at times during her coughing fits and much better controlled on day of discharge once her coughing was improved. At home, she is on furosemide 80 mg twice a day, carvedilol 12.5 mg twice a day, amlodipine 5 mg daily. Her carvedilol and amlodipine have been continued and her furosemide will be continued upon discharge Qualifiers: Hypertension type: essential hypertension Qualified Code(s): I10 - Essential (primary) hypertension (8) Venous stasis dermatitis of both lower extremities Priority: Secondary Status: Chronic (9) Diabetes type 2, uncontrolled Priority: Secondary Status: Chronic Comments: Uncontrolled with an A1c last month of 11.1%. Hyperglycemic likely secondary to steroids and increased stress continued to improve. Follow-up outpatient, long history of noncompliance Qualifiers: Diabetes mellitus complication status: with kidney complications Diabetes mellitus complication detail: with chronic kidney disease Diabetes mellitus longterm insulin use: without longterm use Chronic kidney disease stage: on chronic dialysis Qualified Code(s): E11.22 - Type 2 diabetes mellitus with diabetic chronic kidney disease; E11.65 - Type 2 diabetes mellitus with hyperglycemia; N18.6 - End stage renal disease; Z99.2 - Dependence on renal dialysis (10) DVT prophylaxis Priority: Primary Status: Acute Comments: Subcutaneous heparin while admitted (11) Anemia of chronic disease Priority: Secondary Status: Chronic Comments: She remained hemodynamically stable throughout this admission (12) Chronic respiratory failure Priority: Secondary Status: Chronic Qualifiers: Respiratory failure complication: unspecified whether with hypoxia or hypercapnia Qualified Code(s): J96.10 - Chronic respiratory failure, unspecified whether with hypoxia or hypercapnia (13) Multiple contusions Priority: Primary Status: Acute (14) Tobacco abuse Priority: Secondary Status: Chronic Comments: Patient states she stopped smoking approximately one month ago however she states that since she has been discharged from the hospital last week, she has been smoking (15) Generalized weakness Priority: Primary Status: Acute Comments: Sending home with home health services per OT and PT recommendations (16) H/O noncompliance with medical treatment, presenting hazards to health Priority: Secondary Status: Chronic (17) DESHAWN (obstructive sleep apnea) Priority: Secondary Status: Chronic Comments: Endorses compliance with CPAP (18) Morbid obesity with BMI of 40.0-44.9, adult Priority: Secondary Status: Chronic - Discharge Medications Prescriptions: Acetaminophen w/Cod 300-30 mg [Tylenol w/Codeine #3] 2 tab PO Q4HR PRN #30 tablet PRN Reason: cough Benzonatate [Tessalon] 200 mg PO TID PRN #40 capsule PRN Reason: Cough Guaifenesin [Guaifenesin ER] 1,200 mg PO BID #10 tab.er.12h Levofloxacin [Levaquin] 500 mg PO Q48H #10 tablet PredniSONE 10 mg PO DAILY #50 tablet Home Medications: Amitriptyline [Elavil] 100 mg PO HS 05/11/15 [History] Clopidogrel [Plavix] 75 mg PO DAILY 05/11/15 [History] Omeprazole [PriLOSEC] 20 mg PO BID 05/11/15 [History] Rosuvastatin [Crestor] 40 mg PO HS 05/11/15 [History] Sevelamer [Renvela] 800 mg PO TIDWM 05/11/15 [History] Aripiprazole [Abilify] 10 mg PO HS 06/12/15 [History] Colestipol HCl [Colestid] 1 gm PO BID 06/12/15 [History] Carvedilol 12.5 mg PO BID 10/28/15 [History] Amlodipine [Norvasc] 5 mg PO DAILY 06/09/16 [History] Insulin Glargine,Hum.rec.anlog [Lantus Solostar] 60 unit SQ BID 06/09/16 [ History] Gabapentin [Neurontin] 200 mg PO TID 30 Days 06/18/16 [Rx] Calcium Acetate [Phos-LO] 667 mg PO TIDWM 09/06/16 [History] Furosemide [Lasix] 80 mg PO BID 09/06/16 [History] Insulin LISPRO [Humalog] 20 unit SQ TIDWM PRN 09/06/16 [History] Metolazone [Zaroxolyn] 2.5 mg PO MOWEFR 09/06/16 [History] OxyCODONE/APAP 10/325 [Percocet 10/325 MG] 1 each PO Q6H PRN #10 tablet [Rx] Albuterol Sulfate [Ventolin Hfa] 2 puff IH Q4H PRN 12/29/16 [History] Ondansetron ODT [Zofran ODT] 4 mg SL Q8HR PRN 12/29/16 [History] Oxycodone HCl [Oxycontin] 60 mg PO Q12H 12/31/16 [History] Tiotropium [Spiriva] 1 puff IH DAILY 01/12/17 [History] Acetaminophen w/Cod 300-30 mg [Tylenol w/Codeine #3] 2 tab PO Q4HR PRN #30 tablet 01/16/17 [Rx] Benzonatate [Tessalon] 200 mg PO TID PRN #40 capsule 01/16/17 [Rx] Guaifenesin [Guaifenesin ER] 1,200 mg PO BID #10 tab.er.12h 01/16/17 [Rx] Levofloxacin [Levaquin] 500 mg PO Q48H #10 tablet 01/16/17 [Rx] PredniSONE 10 mg PO DAILY #50 tablet 01/16/17 [Rx] Allergies/Adverse Reactions: Allergies No Known Allergies Allergy (Verified 01/12/17 11:29) Date of admission: 01/10/17 21:53 Primary care physician: Tristen Quintana MD Consults: 01/11/17 07:00 Consult to Nephrology [CONS] Routine Consulting Provider: Kidney Olivia/MARCO/SWAPNA/MILLIE Reason for Consult: esrd hd Call Completed: No 01/11/17 11:15 Consult to Dialysis [CONS] ONCE 01/13/17 08:00 Consult to Dialysis [CONS] ONCE 01/14/17 08:15 Consult to Dialysis [CONS] ONCE 01/14/17 19:48 Consult to Pulmonology [CONS] Routine Consulting Provider: Pulm [facility] Olivia Reason for Consult: 3rd admission in 2 weeks. bilateral LL pna possibly from aspiration. Remains with moist, wet cough that has been unproductive despite mucinex, acetylcystine, and chest PT. Dr Hogue aware and will see in the am. NPO after mdnight for possible bronch Time Notified: 19:49 Call Completed: Yes 01/15/17 08:00 Consult to Dialysis [CONS] ONCE Discharging clinician: Mary Johnson Anticipated date of discharge: 01/16/17 (with continued svcs) - Patient Status Disposition: Home Health Service Condition: Fair Functional capacity at discharge: uses cane/walker Overall status at discharge: patient is back to baseline - Discharge Instructions Follow Up With: Tristen Quintana MD [Primary Care Provider] - 01/20/17 5:00 pm Annika Hogue MD [Partnered Physician] - (appointment has been web requested. Will call with appointment time.) Additional Instructions: Follow-up with primary care provider as scheduled. Follow-up with pulmonology in 1-2 weeks - Diet and Activity Activity: as per physical therapy, increase activity as tolerated Diet: diabetic diet, low fat, low cholesterol, low salt diet, other (Fluid and potassium restricted diet) Hospital course: Ms. Riley is a 61 year old female with past history of COPD on oxygen at home, diabetes-uncontrolled, end-stage renal disease on hemodialysis Wednesdays and Fridays, heart failure, CAD, CVA, DVT, fibromyalgia, GERD, hyperlipidemia, hypertension. Patient was recently discharged 7 days prior to presentation. She presented to the emergency room chief complaint one-week history of progressive shortness of breath, productive cough, and subjective fever. Patient will was noted to have significant leukocytosis upon arrival with white count of 34. CT scan emergency department assist with bilateral lower lobe aspiration pneumonia. Glucose was also in excess of 500 upon presentation. Of note, this was the patient's fourth hospitalization in the last 2 months for respiratory complaints. She was admitted to the hospitalist service for further evaluation and management. She was started on Unasyn. During this admission, she had a moist, wet, unproductive cough despite mucolytics and chest physiotherapy. Pulmonology was brought on board who proceeded with a bronchoscopy and BAL with several mucous plugs present. Of note, patient had stopped smoking 1 month prior to arrival but since she was discharged from the hospital last week prior to presentation, she started smoking again. Her leukocytosis trended down. She was admitted and observed over the course of 7 days. Blood cultures negative. Viral panel negative. She was seen and evaluated by speech therapy given the possibility of aspiration pneumonia however she was cleared for a regular diet with thin liquids. She was seen and evaluated by occupational and physical therapy both of whom recommended home health services. Nephrology was also on board during this admission and her measured rate went from 130 kg down to 120.5 kg during this admission. She was again educated on fluid and potassium restricted diets. She has a lengthy history of noncompliance. Preliminary sputum cultures from her BAL consistent with gram-negative rods of the patient was sent home on renally dosed levofloxacin-will follow-up with sputum culture after her discharge and adjust antibiotics if indicated. After her bronchoscopy , patient denies shortness of breath above her norm. She was euvolemic on examination on day of discharge and her furosemide was resumed at its regular dosage. She was discharged home with home health services in stable condition with close outpatient follow-up recommended. ITS Impressions Chest X-Ray 01/10/17 17:13 IMPRESSION: Findings as above which may represent mild congestive heart failure. D/ / Em Do MD / Em Do MD Interpreting Provider: Em Do MD Chest CT 01/10/17 19:54 IMPRESSION: Patchy bilateral airspace opacities and consolidation in the lower lobes, consistent with pneumonia. Given their appearance, aspiration should be considered as an etiology. Mild ground-glass opacities in both upper lobes, which could be related to mild pulmonary edema versus an infectious process. Mild cardiomegaly. Coronary atherosclerosis. D/ / 01/10/2017 21:06:33 Dennis Bartlett MD / earnold Interpreting Provider: Dennis Bartlett MD - Time Spent with Patient Total time spent providing and/or coordinating discharge services: - Constitutional Vitals: Temp Pulse Resp BP Pulse Ox 97.7 F 76 16 150/65 99 01/16/17 06:46 01/16/17 06:46 01/16/17 09:57 01/16/17 09:57 01/16/17 09:57 General appearance: Present: cooperative, A&O X 3, morbidly obese, pleasant, no acute distress, answers questions appropriately - Head Head exam: Present: atraumatic, normocephalic - Eye Eye exam: Present: PERRL, conjuntiva pink, sclera anicteric Pupils: Present: PERRL - Neck Neck exam general surgery: Present: supple, trachea midline. Absent: lymphadenopathy - Respiratory Respiratory exam: Present: rhonchi. Absent: accessory muscle use, rales, respiratory distress, wheezes - Cardiovascular Cardiovascular exam: Present: RRR, +S1, +S2. Absent: diastolic murmur, gallop, rubs, systolic murmur - GI/Abdominal GI/Abdominal exam: Present: normal bowel sounds, soft, no peritoneal signs. Absent: distended, tenderness - Extremities Exam Extremities exam: Present: warm, radial pulses palpable and symetrical. Absent : calf tenderness, cyanotic, pedal edema - Neurological Exam Neurological exam: Present: alert, CN II-XII intact, oriented X3, no focal deficits, strengths equal and symetr throughout. Absent: pronater drift, facial droop, speech deficit - Skin Skin exam: Present: dry, intact, normal color, warm - VTE Documentation of Mechanical Device: Intermittent pneumatic compression device
--- NOTE | 2017-01-16 11:20 | Physician Discharge Referral ---
Home Health/Hosp Referral Info Transfer to: Home Health Attending Provider: Laurie Johnson CNP Provider in Charge Post Discharge: PCP - Diagnosis (1) Aspiration pneumonia Priority: Primary Status: Acute (2) CHF (congestive heart failure) Priority: Secondary Status: Chronic (3) Leukocytosis Priority: Primary Status: Acute (4) CAD (coronary artery disease) Priority: Secondary Status: Chronic (5) COPD (chronic obstructive pulmonary disease) Priority: Secondary Status: Chronic (6) ESRD on hemodialysis Priority: Secondary Status: Chronic (7) HTN (hypertension) Priority: Secondary Status: Chronic (8) Venous stasis dermatitis of both lower extremities Priority: Secondary Status: Chronic (9) Diabetes type 2, uncontrolled Priority: Secondary Status: Chronic (10) DVT prophylaxis Priority: Primary Status: Acute (11) Anemia of chronic disease Priority: Secondary Status: Chronic (12) Chronic respiratory failure Priority: Secondary Status: Chronic (13) Multiple contusions Priority: Primary Status: Acute (14) Tobacco abuse Priority: Secondary Status: Chronic (15) Generalized weakness Priority: Primary Status: Acute (16) H/O noncompliance with medical treatment, presenting hazards to health Priority: Secondary Status: Chronic (17) DESHAWN (obstructive sleep apnea) Priority: Secondary Status: Chronic (18) Morbid obesity with BMI of 40.0-44.9, adult Priority: Secondary Status: Chronic - Respiratory Orders Oxygen / L per min (2) Smoking Cessation: Smoking cessation has been advised. For more information, call the [place] Tobacco Quit Line at 2-846-JQPI-NOW. - Diet/Nutrition Diet/Nutrition Orders: No Added Salt (LISA), Renal (fluid restriction 1500ml/day ; potassium restriction), Cardiac, No Concentrated Sweets - Activity Activity Orders: Ambulate, Walker - Services Needed Following services are medically necessary services: Nursing, Home Health Aide, Physical Therapy, Occupational Therapy, Speech Therapy - Transfer Medications Prescriptions: Acetaminophen w/Cod 300-30 mg [Tylenol w/Codeine #3] 2 tab PO Q4HR PRN #30 tablet PRN Reason: cough Benzonatate [Tessalon] 200 mg PO TID PRN #40 capsule PRN Reason: Cough Guaifenesin [Guaifenesin ER] 1,200 mg PO BID #10 tab.er.12h Levofloxacin [Levaquin] 500 mg PO Q48H #10 tablet PredniSONE 10 mg PO DAILY #50 tablet Home Medications: Amitriptyline [Elavil] 100 mg PO HS 05/11/15 [History] Clopidogrel [Plavix] 75 mg PO DAILY 05/11/15 [History] Omeprazole [PriLOSEC] 20 mg PO BID 05/11/15 [History] Rosuvastatin [Crestor] 40 mg PO HS 05/11/15 [History] Sevelamer [Renvela] 800 mg PO TIDWM 05/11/15 [History] Aripiprazole [Abilify] 10 mg PO HS 06/12/15 [History] Colestipol HCl [Colestid] 1 gm PO BID 06/12/15 [History] Carvedilol 12.5 mg PO BID 10/28/15 [History] Amlodipine [Norvasc] 5 mg PO DAILY 06/09/16 [History] Insulin Glargine,Hum.rec.anlog [Lantus Solostar] 60 unit SQ BID 06/09/16 [ History] Gabapentin [Neurontin] 200 mg PO TID 30 Days 06/18/16 [Rx] Calcium Acetate [Phos-LO] 667 mg PO TIDWM 09/06/16 [History] Furosemide [Lasix] 80 mg PO BID 09/06/16 [History] Insulin LISPRO [Humalog] 20 unit SQ TIDWM PRN 09/06/16 [History] Metolazone [Zaroxolyn] 2.5 mg PO MOWEFR 09/06/16 [History] OxyCODONE/APAP 10/325 [Percocet 10/325 MG] 1 each PO Q6H PRN #10 tablet [Rx] Albuterol Sulfate [Ventolin Hfa] 2 puff IH Q4H PRN 12/29/16 [History] Ondansetron ODT [Zofran ODT] 4 mg SL Q8HR PRN 12/29/16 [History] Oxycodone HCl [Oxycontin] 60 mg PO Q12H 12/31/16 [History] Tiotropium [Spiriva] 1 puff IH DAILY 01/12/17 [History] Acetaminophen w/Cod 300-30 mg [Tylenol w/Codeine #3] 2 tab PO Q4HR PRN #30 tablet 01/16/17 [Rx] Benzonatate [Tessalon] 200 mg PO TID PRN #40 capsule 01/16/17 [Rx] Guaifenesin [Guaifenesin ER] 1,200 mg PO BID #10 tab.er.12h 01/16/17 [Rx] Levofloxacin [Levaquin] 500 mg PO Q48H #10 tablet 01/16/17 [Rx] PredniSONE 10 mg PO DAILY #50 tablet 01/16/17 [Rx] Allergies/Adverse Reactions: Allergies No Known Allergies Allergy (Verified 01/12/17 11:29) Certification: Further, I certify that my clinical findings support that this patient is homebound (i.e. absences from home require considerable and taxing effort and are for medical reasons or jainism services or infrequently or short duration when for other reasons) because: Homebound Reason: Patient requires assistance of a person or device to safely leave home, Leaving home requires considerable and taxing effort due to condition, Severity of cardiac or pulmonary status limits activity tolerance Attestation: My signature below is to certify that this patient is under my care and that I, or nurse practitioner, or a physician's health care legal assistant working with me, has a face-to -face encounter with this patient.
[2017-01-19 10:30] VITALS: BP 185/66
== END 2017-01-16 13:18 | disposition home health service (06) | DRG 177 ==
LOC: EMEROO 17:10 → 3BNU 17:10
PROVIDERS: ADMIT Internal Medicine; ATTEND Nurse Practitioner Family

== ENCOUNTER 2017-01-17 14:12 | Observation (INO) ==
[2017-01-17] MEDS ORDERED: *HR* Morphine 2 MG/ML SYRINGE IVP PRN (16:58)
[2017-01-17] MEDS ORDERED: Naloxone 0.4 MG/ML INJ IVP PRN (16:58)
[2017-01-17] MEDS ORDERED: Ondansetron 4 MG/2 ML VIAL IVP PRN (16:58)
[2017-01-17] MEDS ORDERED: Acetaminophen 325 MG TABLET PO PRN (16:58)
[2017-01-17] MEDS ORDERED: *HR* HYDROcodone/Acet 5/325 mg TABLET PO PRN (16:58)
[2017-01-17] MEDS ORDERED: Benzonatate 100 MG CAPSULE PO PRN (17:02)
[2017-01-17] MEDS ORDERED: Ondansetron ODT 4 MG TAB.RAPDIS SL PRN (17:02)
[2017-01-17] MEDS ORDERED: *HR* Acetaminophen w/Cod 300-30 mg 1 TAB TABLET PO PRN (17:02)
[2017-01-17] MEDS ORDERED: *HR* OxyCODONE/APAP 10/325 TABLET PO PRN (17:02)
[2017-01-17] MEDS ORDERED: Dextrose Gel 15 GM PO PRN ×2 (17:06)
[2017-01-17] MEDS ORDERED: D5% in Water 1,000 ML IVC PRN (17:06)
--- NOTE | 2017-01-17 17:19 | Internal Med History&Physical ---
Date of Encounter: 01/17/17 Time of Encounter: 17:30 Assessment and Plan (1) Proteus mirabilis infection Current visit: Yes Status: Acute BAL culture consistent with Proteus mirabilis ESBL. We will treat with ertapenem 1 g daily for 14 days. Of note, this medication must be given at least 6 hours before her dialysis so we will schedule them for the evenings. Powerglide to be placed (2) ESBL (extended spectrum beta-lactamase) producing bacteria infection Current visit: Yes Status: Acute (3) Generalized weakness Current visit: No Status: Acute During her last admission over the past week, she was seen and evaluated by occupational and physical therapy both of whom recommended home health services. She was discharged home with home health services however unfortunately, patient states that she has fallen twice in the 1 day that she was at home. She states she had to return to the emergency department for stitches to her left foot. She denies any syncopal episodes but states that she is just so weak that she keeps falling. We will bring her T and PT back on board as well as director social service. Appreciate their recommendations. Patient stating she does not want to go to inpatient rehabilitation but understands that she will probably may have to. She states if it is recommended that she would be amenable to going. (4) Laceration Current visit: No Status: Acute Left third toe with laceration at the base. Patient does not remember how she did this she just knows that she was leaving spots of blood on the carpet while ambulating. No active bleeding. Stitches in place. (5) Fall Current visit: No Status: Acute Qualifiers: Encounter type: initial encounter Qualified Code(s): W19.XXXA - Unspecified fall, initial encounter (6) CHF (congestive heart failure) Current visit: No Status: Chronic No acute exacerbation. Euvolemic on examination. Qualifiers: Congestive heart failure type: diastolic Congestive heart failure chronicity: acute on chronic Qualified Code(s): I50.33 - Acute on chronic diastolic (congestive) heart failure (7) Diabetes Current visit: No Status: Chronic Uncontrolled with an A1c of 11.1%. Continue sliding scale while admitted. Qualifiers: Diabetes mellitus type: type 2 Diabetes mellitus complication status: with kidney complications Diabetes mellitus complication detail: with chronic kidney disease Diabetes mellitus retirement insulin use: with retirement use Chronic kidney disease stage: on chronic dialysis Qualified Code(s): E11.22 - Type 2 diabetes mellitus with diabetic chronic kidney disease; N18.6 - End stage renal disease; Z79.4 - nursing home (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 of insulin; Z99.2 - Dependence on renal dialysis (8) CAD (coronary artery disease) Current visit: No Status: Chronic Qualifiers: Coronary Disease-Associated Artery/Lesion type: [place] artery [place] vs. transplanted heart: [place] heart Associated angina: without angina Qualified Code(s): I25.10 - Atherosclerotic heart disease of [place] coronary artery without angina pectoris (9) COPD (chronic obstructive pulmonary disease) Current visit: No Status: Chronic No acute exacerbation. Qualifiers: COPD type: emphysema Emphysema type: unspecified Qualified Code(s): J43.9 - Emphysema, unspecified (10) ESRD on hemodialysis Current visit: No Status: Chronic Dialysis Wednesdays and Fridays. Spoke to Dr. Hernandez who is aware of her situation and readmission. (11) HTN (hypertension) Current visit: No Status: Chronic Currently controlled. Regular home medications continues, we will trend Qualifiers: Hypertension type: essential hypertension Qualified Code(s): I10 - Essential (primary) hypertension (12) DVT prophylaxis Current visit: No Status: Acute Subcutaneous heparin (13) Chronic respiratory failure Current visit: No Status: Chronic Continue supplemental oxygenation. Qualifiers: Respiratory failure complication: unspecified whether with hypoxia or hypercapnia Qualified Code(s): J96.10 - Chronic respiratory failure, unspecified whether with hypoxia or hypercapnia (14) Morbid obesity with BMI of 45.0-49.9, adult Current visit: No Status: Chronic Internal Medicine - H&P: HPI Chief complaint: ESBL infection Admitted From: Home Plans for Post Hospital Care: Home (with [facility]) History of present illness: Ms. Riley is a 61 year old female who was admitted at [facility] from 01/10/17 until 01/16/17 for a COPD exacerbation and multifocal aspiration pneumonia. As this was her eighth visit to this hospital since the beginning of the year, pulmonology was brought on board. They performed a bronchoscopy with BAL. Patient was discharged home as she improved significantly after this procedure. BAL cultures came back revealing Proteus mirabilis ESBL and she was instructed to come back to the hospital to receive a power glide for IV antibiotics. Past Med Surg Social Fam HX - Past Medical History Medical history: arthritis, atrial fibrillation, CHF, COPD, coronary artery disease, CVA, DVT, diabetes, dialysis, fibromyalgia, GERD, hyperlipidemia, hypertension, kidney stones, migraine, myocardial infarction, osteoporosis, peripheral artery disease, renal disease, other Psychiatric history: anxiety - Past Surgical History Surgical History: angioplasty/stent, appendectomy, cholecystectomy, coronary bypass (CABG), hysterectomy, knee replacement, other, IVC filter - Social History Smoking Status: Former smoker Smokeless Tobacco Status: No Alcohol use: none Drug use: none - Family History Father Living Status: Hx Family Cardiac Disorders: Yes Hx Family Endocrine Disorder: Yes Mother Living Status: Still Living Hx Family Respiratory Disorders: Yes (end stage copd) Internal Medicine - H&P: Meds Amitriptyline [Elavil] 100 mg PO HS 05/11/15 [History] Clopidogrel [Plavix] 75 mg PO DAILY 05/11/15 [History] Omeprazole [PriLOSEC] 20 mg PO BID 05/11/15 [History] Rosuvastatin [Crestor] 40 mg PO HS 05/11/15 [History] Sevelamer [Renvela] 800 mg PO TIDWM 05/11/15 [History] Aripiprazole [Abilify] 10 mg PO HS 06/12/15 [History] Colestipol HCl [Colestid] 1 gm PO BID 06/12/15 [History] Carvedilol 12.5 mg PO BID 10/28/15 [History] Amlodipine [Norvasc] 5 mg PO DAILY 06/09/16 [History] Insulin Glargine,Hum.rec.anlog [Lantus Solostar] 60 unit SQ BID 06/09/16 [ History] Gabapentin [Neurontin] 200 mg PO TID 30 Days 06/18/16 [Rx] Calcium Acetate [Phos-LO] 667 mg PO TIDWM 09/06/16 [History] Furosemide [Lasix] 80 mg PO BID 09/06/16 [History] Insulin LISPRO [Humalog] 20 unit SQ TIDWM PRN 09/06/16 [History] Metolazone [Zaroxolyn] 2.5 mg PO MOWEFR 09/06/16 [History] OxyCODONE/APAP 10/325 [Percocet 10/325 MG] 1 each PO Q6H PRN #10 tablet [Rx] Albuterol Sulfate [Ventolin Hfa] 2 puff IH Q4H PRN 12/29/16 [History] Ondansetron ODT [Zofran ODT] 4 mg SL Q8HR PRN 12/29/16 [History] Oxycodone HCl [Oxycontin] 60 mg PO Q12H 12/31/16 [History] Tiotropium [Spiriva] 1 puff IH DAILY 01/12/17 [History] Acetaminophen w/Cod 300-30 mg [Tylenol w/Codeine #3] 2 tab PO Q4HR PRN #30 tablet 01/16/17 [Rx] Amoxicillin/Clavulanate [Augmentin] 875 mg PO BIDWM 5 Days 01/16/17 [Rx] Benzonatate [Tessalon] 200 mg PO TID PRN #40 capsule 01/16/17 [Rx] Guaifenesin [Guaifenesin ER] 1,200 mg PO BID #10 tab.er.12h 01/16/17 [Rx] Levofloxacin [Levaquin] 500 mg PO Q48H #10 tablet 01/16/17 [Rx] PredniSONE 10 mg PO DAILY #50 tablet 01/16/17 [Rx] Ertapenem [INVanz] 1,000 mg IVPB DAILY@1700 #13 vial 01/17/17 [Rx] Allergies No Known Allergies Allergy (Verified 01/12/17 11:29) All Systems PM: A 10-system review of systems was performed and is negative for pertinent findings except as documented above in the HPI. - Constitutional Constitutional: falls (2 in the 1 day that she has been home), weakness, no night sweats, no weight gain - EENT Eyes: as per HPI Ears: as per HPI Nose, mouth and throat: post-nasal drip, sore throat, no hoarseness, no lip swelling - Cardiovascular Cardiovascular ROS IM: as per HPI, dyspnea on exertion, no chest pain, no diaphoresis - Respiratory Respiratory: cough, dyspnea, dyspnea on exertion, chest congestion, excessive phlegm production, pain with cough - Gastrointestinal Gastrointestinal: no abdominal pain, no change in bowel habits - Genitourinary Genitourinary: as per HPI, no dysuria Menstruation: post menopausal - Musculoskeletal Musculoskeletal ROS IM: muscle weakness - Integumentary Integumentary IM: new lesions (Laceration to the left foot status post sutures) - Neurological Neurological ROS: frequent falls, no confusion, no other visual disturbances - Constitutional Vitals: Temp Pulse Resp BP Pulse Ox 97.7 F 86 17 128/61 96 01/17/17 16:25 01/17/17 16:25 01/17/17 16:25 01/17/17 16:25 01/17/17 16:25 General appearance: Present: A&O X 3, morbidly obese, pleasant, no acute distress, answers questions appropriately - Head Head exam: Present: atraumatic, normocephalic - Eye Eye exam: Present: PERRL, conjuntiva pink, sclera anicteric Pupils: Present: PERRL - Neck Neck exam general surgery: Present: supple, trachea midline. Absent: lymphadenopathy - Respiratory Respiratory exam: Present: accessory muscle use, decreased breath sounds, rhonchi. Absent: rales, respiratory distress, wheezes - Cardiovascular Cardiovascular exam: Present: RRR, +S1, +S2. Absent: diastolic murmur, gallop, rubs, systolic murmur - GI/Abdominal GI/Abdominal exam: Present: normal bowel sounds, soft, no peritoneal signs. Absent: distended, tenderness - Extremities Exam Extremities exam: Present: pedal edema (Trace, nonpitting), warm, radial pulses palpable and symetrical. Absent: calf tenderness, cyanotic - Neurological Exam Neurological exam: Present: alert, CN II-XII intact, oriented X3, no focal deficits, strengths equal and symetr throughout. Absent: pronater drift, facial droop, speech deficit - Skin Skin exam: Present: dry, intact, normal color, warm - Expanded Skin Exam Type of lesion: Present: laceration Distribution of rash: Present: LLE Description of rash: Present: erythematous (Ecchymotic). Absent: tenderness Internal Med - H&P Results - Labs CBC & Chem 7: 01/17/17 17:34
[2017-01-17 17:51] LABS: Basophils % 0.1 %; Eosinophils # 0.1 K/mcL (0.0-0.6); Eosinophils % 0.6 %; Hematocrit 37.4 % (35.3-44.9); Hemoglobin 11.8 g/dL (11.5-15.4); Immature Granulocytes % 1.1 % (0-4); Lymphocytes # 1.6 K/mcL (0.6-4.6); Lymphocytes % 9.8 %; Mean Corpuscular HGB Conc 31.6 g/dL (31.6-35.5); Mean Corpuscular Hemoglobin 25.7 pg (28.0-33.3); Mean Corpuscular Volume 81.3 fL (83.0-100.0); Mean Platelet Volume 10.8 fL (9.4-12.4); Neutrophils # 13.8 K/mcL (1.6-8.9); Platelet Count 170 K/mcL (140-400); Red Cell Distribution Width 15.9 % (11.5-14.5); Segmented Neutrophils % 82.4 %
[2017-01-17] MEDS ORDERED: Ertapenem 1,000 MG in 0.9 % Sodium Chloride Mini Bag 100 ML IVPB SCH (18:00)
[2017-01-17 18:03] LABS: Potassium 4.6 mEq/L (3.5-4.5)
[2017-01-17] MEDS: (Colestipol Hcl [Colestid] 1 GM) PO SCH (18:27)
[2017-01-17] MEDS: Furosemide 40 MG TABLET PO SCH (18:27)
[2017-01-17] MEDS: *HR* OxyCODONE ER (12 HR) 20 MG TABLET PO SCH (18:27)
[2017-01-17] MEDS: Gabapentin 100 MG CAPSULE PO SCH (21:00)
[2017-01-17] MEDS: Benzonatate 100 MG CAPSULE PO SCH (21:00)
[2017-01-17] MEDS: *HR* Dextrose 50 % in Water (Syg) 50 ML SYRINGE IVP PRN (22:22)
[2017-01-17] MEDS: ARIPiprazole 10 MG TABLET PO SCH (22:23)
[2017-01-17] MEDS: Insulin DETEMIR 100 UNIT/ML X5UNITS SQ SCH (22:23)
[2017-01-17] MEDS: Insulin LISPRO 300 UNITS/3 ML VIAL SQ SCH (22:23)
[2017-01-18] MEDS: *HR* OxyCODONE ER (12 HR) 20 MG TABLET PO SCH ×2 (04:57→17:26)
[2017-01-18] MEDS: *HR* Heparin 5,000 UNIT/ML VIAL SQ SCH ×2 (04:57→18:16)
[2017-01-18 06:33] LABS: Basophils % 0.2 %; Eosinophils # 0.1 K/mcL (0.0-0.6); Hematocrit 34.3 % (35.3-44.9); Hemoglobin 10.4 g/dL (11.5-15.4); Immature Granulocytes % 1.1 % (0-4); Lymphocytes # 1.5 K/mcL (0.6-4.6); Lymphocytes % 11.6 %; Mean Corpuscular HGB Conc 30.3 g/dL (31.6-35.5); Mean Corpuscular Hemoglobin 25.2 pg (28.0-33.3); Mean Corpuscular Volume 83.1 fL (83.0-100.0); Mean Platelet Volume 11.2 fL (9.4-12.4); Monocytes # 0.8 K/mcL (0.0-1.3); Monocytes % 5.9 %; Neutrophils # 10.3 K/mcL (1.6-8.9); Platelet Count 143 K/mcL (140-400); Red Blood Count 4.13 M/mcL (3.82-4.97); Red Cell Distribution Width 15.9 % (11.5-14.5); Segmented Neutrophils % 80.2 %
[2017-01-18 06:54] LABS: Calcium 8.5 mg/dL (8.6-10.8); Potassium 4.7 mEq/L (3.5-4.5)
--- NOTE | 2017-01-18 08:12 | Internal Med Progress Note ---
Date of Encounter: 01/18/17 Time of Encounter: 08:09 - Assessment and plan (1) Pneumonia Status: Acute Assessment and plan: Patient had a recent admission for acute COPD and Pneumonia, just discharged 2 days ago. Underwent BAL last admission, fluid grows ESBL-Proteus and patient has been readmitted for long-term IV antibiotics; to received a PICC line and has been started on IV Ertapenem for at least 2 weeks; continue to monitor; supportive care and supplemental O2; Qualifiers: Pneumonia type: due to other aerobic Gram-negative bacteria Laterality: bilateral Lung location: lower lobe of lung Qualified Code(s): J15.6 - Pneumonia due to other aerobic Gram-negative bacteria (2) Fall Status: Acute Assessment and plan: patient sustained 2-3 falls at home in the 1 day that she had been home from the hospital; she lives alone and would benefit from ECF placement at least for short term rehab, for IV antibiotics; she also sustained small laceration to left foot, in webspace between 2nd and third digits, that has been sutured in the ER; PT/OT evaluation and fall precautions; Qualifiers: Encounter type: initial encounter Qualified Code(s): W19.XXXA - Unspecified fall, initial encounter (3) CHF (congestive heart failure) Status: Chronic Assessment and plan: not in acute exacerbation; resume home meds; Qualifiers: Congestive heart failure type: diastolic Congestive heart failure chronicity: chronic Qualified Code(s): I50.32 - Chronic diastolic (congestive ) heart failure (4) Diabetes Status: Chronic Assessment and plan: Accucheck blood glucose monitoring with basal bolus insulin regimen; diabetic diet; Qualifiers: Diabetes mellitus type: type 2 Diabetes mellitus complication status: with kidney complications Diabetes mellitus complication detail: with chronic kidney disease Diabetes mellitus terminal operator insulin use: with terminal operator use Chronic kidney disease stage: on chronic dialysis Qualified Code(s): E11.22 - Type 2 diabetes mellitus with diabetic chronic kidney disease; N18.6 - End stage renal disease; Z79.4 - skilled nursing (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 of insulin; Z99.2 - Dependence on renal dialysis (5) CAD (coronary artery disease) Status: Chronic Qualifiers: Coronary Disease-Associated Artery/Lesion type: bypass graft [place] vs. transplanted heart: [place] heart Associated angina: without angina Qualified Code(s): I25.810 - Atherosclerosis of coronary artery bypass graft(s) without angina pectoris (6) COPD (chronic obstructive pulmonary disease) Status: Chronic Qualifiers: COPD type: emphysema Emphysema type: unspecified Qualified Code(s): J43.9 - Emphysema, unspecified (7) Morbid (severe) obesity due to excess calories Status: Chronic (8) ESRD (end stage renal disease) Status: Chronic Assessment and plan: Nephrology has been consulted, patient will receive regular HD while in hospital ; (9) HTN (hypertension) Status: Chronic Qualifiers: Hypertension type: essential hypertension Qualified Code(s): I10 - Essential (primary) hypertension (10) Atrial fibrillation Status: Chronic Qualifiers: Atrial fibrillation type: unspecified Qualified Code(s): I48.91 - Unspecified atrial fibrillation - Subjective Interval history: Reports generalized weakness and fatigue. Continues to have some moist cough, shortness of breath. Patient does live alone at home with no 24-hour supervision, has sustained 2 falls in the 1 day that she went home between her hospital admissions. - Constitutional Vitals: Temp Pulse Resp BP Pulse Ox 98.7 F 84 18 157/71 97 01/18/17 07:50 01/18/17 07:50 01/18/17 07:50 01/18/17 07:50 01/18/17 07:50 General appearance: Present: A&O X 3 (Appears tired), morbidly obese, answers questions appropriately - Respiratory Respiratory exam: Present: rhonchi (Bilateral coarse breath sounds and rhonchi at bases). Absent: accessory muscle use, rales, wheezes - Cardiovascular Cardiovascular exam: Present: RRR, +S1, +S2. Absent: diastolic murmur, gallop, rubs, systolic murmur - GI/Abdominal GI/Abdominal exam: Present: normal bowel sounds, soft, no peritoneal signs. Absent: distended, tenderness - Extremities Exam Extremities exam: Present: pedal edema, warm, radial pulses palpable and symetrical. Absent: calf tenderness, cyanotic Additional comments: Left foot- Small laceration between second and third toes, received sutures. Ecchymoses over second toe. Internal Medicine: Result - Labs CBC & Chem 7: 01/23/17 05:37 01/23/17 05:37 Labs: Short CBC 01/17/17 01/18/17 Range/Units 17:34 06:11 WBC 16.7 H 12.8 H (4.3-11.1) K/mcL Hgb 11.8 10.4 L (11.5-15.4) g/dL Hct 37.4 34.3 L (35.3-44.9) % Plt Count 170 143 (140-400) K/mcL Neutrophils # 13.8 H 10.3 H (1.6-8.9) K/mcL BMP 01/17/17 01/18/17 17:34 06:11 Sodium 135 L 133 L Potassium 4.6 H 4.7 H Chloride 98 96 L Carbon Dioxide 22 24 BUN 116 H D 114 H Creatinine 3.04 H 3.13 H Glucose 44 L 141 H Calcium 9.0 8.5 L Consult Discharge Plan - Plan Instructions: Extended Spectrum Beta Lactamase (GEN), Pneumonia (DC) Referrals: Tristen Quintana MD [Primary Care Provider] - (patient will follow up with F PCP) Prescriptions: OxyCODONE ER (12 HR) [OxyCONTIN] 20 mg PO Q12HR #14 tab.er.12h Ertapenem [INVanz] 500 mg IVPB DAILY #14 vial Oxycodone HCl/Acetaminophen [Percocet 5-325 mg Tablet] 1 each PO Q8H #20 tablet
[2017-01-18] MEDS: Benzonatate 100 MG CAPSULE PO SCH ×3 (08:22→21:07)
[2017-01-18] MEDS: Calcium Acetate 667 MG CAPSULE PO SCH ×3 (08:22→17:26)
[2017-01-18] MEDS: Insulin LISPRO 300 UNITS/3 ML VIAL SQ SCH ×3 (08:22→17:25)
[2017-01-18] MEDS: (Colestipol Hcl [Colestid] 1 GM) PO SCH (08:23)
[2017-01-18] MEDS: Gabapentin 100 MG CAPSULE PO SCH ×3 (08:23→21:08)
[2017-01-18] MEDS: Insulin DETEMIR 100 UNIT/ML X5UNITS SQ SCH ×2 (08:23→21:09)
[2017-01-18] MEDS: Furosemide 40 MG TABLET PO SCH ×2 (08:23→17:26)
[2017-01-18] MEDS: *HR* Acetaminophen w/Cod 300-30 mg 1 TAB TABLET PO PRN (08:33)
[2017-01-18] MEDS ORDERED: predniSONE 10 MG TABLET PO SCH (09:00)
[2017-01-18] MEDS ORDERED: 0.9 % Sodium Chloride 250 ML IVC PRN (09:30)
[2017-01-18] MEDS ORDERED: 0.9 % Sodium Chloride 1,000 ML PRIME SCH (09:30)
[2017-01-18] MEDS: Tiotropium 18 MCG inhalation IH SCH (10:44)
--- NOTE | 2017-01-18 11:04 | Nephrology Consult Note ---
Date of Encounter: 01/18/17 Time of Encounter: 10:00 Assessment and Plan (1) ESRD (end stage renal disease) Current Visit: No Status: Chronic Regular HD on , due for dialysis today. May need to coordinate timing for antibiotic purposes. Renal diet-ordered Fluid restriction-ordered Strict I/Os Avoid nephrotoxins if possible (2) Pneumonia Current Visit: No Status: Suspected Cultures positive for ESBL, Proteus. Patient re-admitted for IV antibiotics Management per primary service. Qualifiers: Pneumonia type: due to unspecified organism Laterality: bilateral Lung location: lower lobe of lung Qualified Code(s): J18.9 - Pneumonia, unspecified organism (3) Proteus mirabilis infection Current Visit: Yes Status: Acute (4) ESBL (extended spectrum beta-lactamase) producing bacteria infection Current Visit: Yes Status: Acute (5) CHF (congestive heart failure) Current Visit: No Status: Chronic per primary service Qualifiers: Congestive heart failure type: diastolic Congestive heart failure chronicity: acute on chronic Qualified Code(s): I50.33 - Acute on chronic diastolic (congestive) heart failure (6) Chronic respiratory failure Current Visit: No Status: Chronic per primary service Qualifiers: Respiratory failure complication: unspecified whether with hypoxia or hypercapnia Qualified Code(s): J96.10 - Chronic respiratory failure, unspecified whether with hypoxia or hypercapnia (7) DM2 (diabetes mellitus, type 2) Current Visit: No Status: Chronic per primary service Qualifiers: Diabetes mellitus complication status: with kidney complications Diabetes mellitus complication detail: with chronic kidney disease Diabetes mellitus roasterman insulin use: with skilled nursing use Chronic kidney disease stage: on chronic dialysis Qualified Code(s): E11.22 - Type 2 diabetes mellitus with diabetic chronic kidney disease; N18.6 - End stage renal disease; Z79.4 - intermission coordinator (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 of insulin; Z99.2 - Dependence on renal dialysis (8) Edema Current Visit: No Status: Chronic Qualifiers: Edema type: generalized Qualified Code(s): R60.1 - Generalized edema (9) HTN (hypertension) Current Visit: No Status: Chronic Qualifiers: Hypertension type: essential hypertension Qualified Code(s): I10 - Essential (primary) hypertension (10) DVT prophylaxis Current Visit: No Status: Acute SQ heparin per primary service History of Present Illness - Reason for Consult Consult date: 01/17/17 end stage renal disease Requesting physician: Mary Johnson - Chief Complaint ESBL infection - History of Present Illness Ms. Riley is a 61 year old female who was admitted at [facility] from 01/10/17 until 01/16/17 for a COPD exacerbation and multifocal aspiration pneumonia. Pulmonology did bronchoscopy with BAL; cultures revealing Proteus mirabilis, ESBL. Patient readmitted to the hospital to receive a power glide for IV antibiotics. History of ESRD on HD (M-W-), last session was on Wednesday. Past Med Surg Social Fam HX - Past Medical History Source: old records reviewed Medical history: arthritis, atrial fibrillation, CHF, COPD, coronary artery disease, CVA, DVT, diabetes, dialysis, fibromyalgia, GERD, hyperlipidemia, hypertension, kidney stones, migraine, myocardial infarction, osteoporosis, peripheral artery disease, renal disease, other Psychiatric history: anxiety - Past Surgical History Surgical History: angioplasty/stent, appendectomy, cholecystectomy, coronary bypass (CABG), hysterectomy, knee replacement, other, IVC filter - Social History Smoking Status: Former smoker Smokeless Tobacco Status: No Alcohol use: none Drug use: none - Family History Father Living Status: Hx Family Cardiac Disorders: Yes Hx Family Endocrine Disorder: Yes Mother Living Status: Still Living Hx Family Respiratory Disorders: Yes (end stage copd) Medications and Allergies Amitriptyline [Elavil] 100 mg PO HS 05/11/15 [History] Clopidogrel [Plavix] 75 mg PO DAILY 05/11/15 [History] Omeprazole [PriLOSEC] 20 mg PO BID 05/11/15 [History] Rosuvastatin [Crestor] 40 mg PO HS 05/11/15 [History] Sevelamer [Renvela] 800 mg PO TIDWM 05/11/15 [History] Aripiprazole [Abilify] 10 mg PO HS 06/12/15 [History] Colestipol HCl [Colestid] 1 gm PO BID 06/12/15 [History] Carvedilol 12.5 mg PO BID 10/28/15 [History] Amlodipine [Norvasc] 5 mg PO DAILY 06/09/16 [History] Insulin Glargine,Hum.rec.anlog [Lantus Solostar] 60 unit SQ BID 06/09/16 [ History] Gabapentin [Neurontin] 200 mg PO TID 30 Days 06/18/16 [Rx] Calcium Acetate [Phos-LO] 667 mg PO TIDWM 09/06/16 [History] Furosemide [Lasix] 80 mg PO BID 09/06/16 [History] Insulin LISPRO [Humalog] 20 unit SQ TIDWM PRN 09/06/16 [History] Metolazone [Zaroxolyn] 2.5 mg PO MOWEFR 09/06/16 [History] OxyCODONE/APAP 10/325 [Percocet 10/325 MG] 1 each PO Q6H PRN #10 tablet [Rx] Albuterol Sulfate [Ventolin Hfa] 2 puff IH Q4H PRN 12/29/16 [History] Ondansetron ODT [Zofran ODT] 4 mg SL Q8HR PRN 12/29/16 [History] Oxycodone HCl [Oxycontin] 60 mg PO Q12H 12/31/16 [History] Tiotropium [Spiriva] 1 puff IH DAILY 01/12/17 [History] Acetaminophen w/Cod 300-30 mg [Tylenol w/Codeine #3] 2 tab PO Q4HR PRN #30 tablet 01/16/17 [Rx] Amoxicillin/Clavulanate [Augmentin] 875 mg PO BIDWM 5 Days 01/16/17 [Rx] Benzonatate [Tessalon] 200 mg PO TID PRN #40 capsule 01/16/17 [Rx] Guaifenesin [Guaifenesin ER] 1,200 mg PO BID #10 tab.er.12h 01/16/17 [Rx] Levofloxacin [Levaquin] 500 mg PO Q48H #10 tablet 01/16/17 [Rx] PredniSONE 10 mg PO DAILY #50 tablet 01/16/17 [Rx] Ertapenem [INVanz] 1,000 mg IVPB DAILY@1700 #13 vial 01/17/17 [Rx] Allergies No Known Allergies Allergy (Verified 01/12/17 11:29) Review of Systems ROS unobtainable: due to mental status Exam - Vital Signs Vital signs: Initial Vital Signs Temp Pulse Resp BP Pulse Ox 97.7 F 86 17 128/61 96 01/17/17 16:25 01/17/17 16:25 01/17/17 16:25 01/17/17 16:25 01/17/17 16:25 Vital Signs - Last 8 Hours Temp Pulse Resp BP Pulse Ox 01/18/17 10:45 18 97 01/18/17 07:50 98.7 F 84 18 157/71 97 01/18/17 03:58 98.2 F 95 18 137/68 98 Intake and Output 01/17/17 01/18/17 01/18/17 23:59 07:59 15:59 Intake Total 75 / 75 Output Total 0 / 0 Balance 75 / 75 Intake: Oral 75 / 75 Output: Urine 0 / 0 Other: # Voids 1 # Urine Diapers 1 Weight 127.006 kg 131.859 kg Blood Glucose* 68 175 Patient Weight 01/18/17 23:59 Weight 131.859 kg - General Appearance General appearance: well-developed, well-nourished, chronically ill, fatigue Exam: Patient somnolent on exam, requiring frequent verbal or tactile stimulation. Answers to questioning appropriate EENT: ATNC, mucous membranes moist, hearing intact, vision intact Respiratory: course breath sounds, rhonchi Cardiology: regular rate, regular rhythm Gastrointestinal: no tenderness Integumentary: no rash Additional Comments: Somnolent on exam, but arousable for short periods. Difficulty to ascertain complete answers. Musculoskeletal: no deformities, no cyanosis Psychiatric: mood/affect appropriate Additional exam: Pretibial skin thickening and discoloration, in addition 2+ pitting edema bilaterally. Results - Lab Results 01/18/17 06:11 01/18/17 06:11 Most recent lab results Calcium 8.5 mg/dL (8.6-10.8) L 01/18/17 06:11 Consult Discharge Plan - Plan Referrals: Tristen Quintana MD [Primary Care Provider] - (Web request made 01/17/17 This patient will be placing in ECF) Prescriptions: Ertapenem [INVanz] 1,000 mg IVPB DAILY@1700 #13 vial
[2017-01-18] MEDS ORDERED: *HR* OxyCODONE/APAP 10/325 TABLET PO PRN (13:50)
[2017-01-18] MEDS: amLODIPine 5 MG TABLET PO SCH (17:18)
[2017-01-18] MEDS: metOLazone 2.5 MG TABLET PO SCH (18:17)
--- NOTE | 2017-01-18 18:55 | Electrocardiograph Report ---
[place] [id number] Test Date: 2017-01-18 Pat Name: Lynnette Riley Department: 112 Room: 2A Gender: F Disabilities Caregiver: DHEERAJ : 1955 Requested By: Eloise Duarte Order Number: [id number] Reading MD: Edmundo Cardenas MD Measurements Intervals [place] Rate: 91 P: 65 MN: 192 QRS: 54 QRSD: 82 T: 72 QT: 338 QTc: 387 Interpretive Statements SINUS RHYTHM Electronically Signed On 01-18-2017 18:53:45 EDT by Edmundo Cardenas MD
[2017-01-18] MEDS: ARIPiprazole 10 MG TABLET PO SCH (21:08)
[2017-01-19] MEDS: Insulin LISPRO 300 UNITS/3 ML VIAL SQ SCH ×5 (01:45→22:05)
[2017-01-19 04:41] LABS: Basophils % 0.1 %; Eosinophils # 0.1 K/mcL (0.0-0.6); Eosinophils % 0.3 %; Hematocrit 36.4 % (35.3-44.9); Hemoglobin 11.4 g/dL (11.5-15.4); Immature Granulocytes % 1.2 % (0-4); Lymphocytes # 1.4 K/mcL (0.6-4.6); Lymphocytes % 9.1 %; Mean Corpuscular HGB Conc 31.3 g/dL (31.6-35.5); Mean Corpuscular Hemoglobin 25.7 pg (28.0-33.3); Mean Platelet Volume 11.2 fL (9.4-12.4); Monocytes % 6.1 %; Neutrophils # 13.2 K/mcL (1.6-8.9); Platelet Count 162 K/mcL (140-400); Red Blood Count 4.44 M/mcL (3.82-4.97); Red Cell Distribution Width 15.9 % (11.5-14.5); Segmented Neutrophils % 83.2 %
[2017-01-19 05:11] LABS: Calcium 9.1 mg/dL (8.6-10.8); Potassium 4.5 mEq/L (3.5-4.5)
[2017-01-19] MEDS: *HR* Heparin 5,000 UNIT/ML VIAL SQ SCH ×2 (06:09→18:19)
[2017-01-19] MEDS: *HR* OxyCODONE ER (12 HR) 20 MG TABLET PO SCH ×2 (06:09→17:44)
[2017-01-19] MEDS: amLODIPine 5 MG TABLET PO SCH (08:07)
[2017-01-19] MEDS: predniSONE 5 MG TABLET PO SCH (08:07)
[2017-01-19] MEDS: Gabapentin 100 MG CAPSULE PO SCH ×3 (08:07→22:04)
[2017-01-19] MEDS: Furosemide 40 MG TABLET PO SCH ×2 (08:07→17:40)
[2017-01-19] MEDS: Calcium Acetate 667 MG CAPSULE PO SCH ×3 (08:08→17:40)
[2017-01-19] MEDS: Insulin DETEMIR 100 UNIT/ML X5UNITS SQ SCH ×2 (08:08→22:05)
[2017-01-19] MEDS: Benzonatate 100 MG CAPSULE PO SCH ×3 (08:08→22:04)
[2017-01-19] MEDS: Tiotropium 18 MCG inhalation IH SCH (09:00)
--- NOTE | 2017-01-19 10:40 | Nephrology Progress Note ---
Date of Encounter: 01/19/17 Time of Encounter: 09:57 - Assessment and Plan (1) ESRD (end stage renal disease) Current Visit: No Status: Chronic Regular HD on . May need to coordinate timing for antibiotic purposes. Renal diet-ordered Fluid restriction-ordered Strict I/Os Avoid nephrotoxins if possible (2) Pneumonia Current Visit: No Status: Suspected Cultures positive for ESBL, Proteus. Patient re-admitted for IV antibiotics Management per primary service. Qualifiers: Pneumonia type: due to unspecified organism Laterality: bilateral Lung location: lower lobe of lung Qualified Code(s): J18.9 - Pneumonia, unspecified organism (3) Proteus mirabilis infection Current Visit: Yes Status: Acute (4) ESBL (extended spectrum beta-lactamase) producing bacteria infection Current Visit: Yes Status: Acute (5) CHF (congestive heart failure) Current Visit: No Status: Chronic per primary service Qualifiers: Congestive heart failure type: diastolic Congestive heart failure chronicity: acute on chronic Qualified Code(s): I50.33 - Acute on chronic diastolic (congestive) heart failure (6) Chronic respiratory failure Current Visit: No Status: Chronic per primary service Qualifiers: Respiratory failure complication: unspecified whether with hypoxia or hypercapnia Qualified Code(s): J96.10 - Chronic respiratory failure, unspecified whether with hypoxia or hypercapnia (7) DM2 (diabetes mellitus, type 2) Current Visit: No Status: Chronic per primary service Qualifiers: Diabetes mellitus complication status: with kidney complications Diabetes mellitus complication detail: with chronic kidney disease Diabetes mellitus technician terminal and repeater insulin use: with technician terminal and repeater use Chronic kidney disease stage: on chronic dialysis Qualified Code(s): E11.22 - Type 2 diabetes mellitus with diabetic chronic kidney disease; N18.6 - End stage renal disease; Z79.4 - FDC (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 of insulin; Z99.2 - Dependence on renal dialysis (8) Edema Current Visit: No Status: Chronic Qualifiers: Edema type: generalized Qualified Code(s): R60.1 - Generalized edema (9) HTN (hypertension) Current Visit: No Status: Chronic Qualifiers: Hypertension type: essential hypertension Qualified Code(s): I10 - Essential (primary) hypertension (10) DVT prophylaxis Current Visit: No Status: Acute SQ heparin per primary service. Subjective Principal diagnosis: ESBL infection Interval history: Patient more awake and alert this morning. Afebrile. No noted events overnight. States she continues to have difficulty in breathing. Objective - Vital Signs Vital signs: Vital Signs Temp Pulse Resp BP Pulse Ox 01/19/17 08:14 98 01/19/17 06:55 98.6 F 98 18 118/68 98 01/19/17 04:34 98.5 F 96 18 138/73 96 01/18/17 23:44 99.5 F 98 18 147/75 96 01/18/17 21:00 98 01/18/17 19:03 98.3 F 96 16 149/88 98 01/18/17 15:09 97.7 F 22 139/77 01/18/17 14:15 160/70 01/18/17 14:00 150/77 01/18/17 13:45 135/75 01/18/17 13:30 144/73 01/18/17 13:15 125/55 01/18/17 13:00 125/63 01/18/17 12:45 119/67 01/18/17 12:30 129/67 01/18/17 12:15 123/71 01/18/17 12:00 166/70 01/18/17 11:45 141/88 01/18/17 11:30 127/79 01/18/17 11:15 98.4 F 22 172/59 01/18/17 10:45 18 97 Intake and Output 01/18/17 01/19/17 01/19/17 23:59 07:59 15:59 Output Total 200 / 200 Balance -200 / -200 Output: Urine 200 / 200 Other: Stool Size Small Stool Consistency formed Stool Color Brown Green # Bowel Movements 1 # Bowel Movement Diapers 1 Blood Glucose* 85 61 - General Appearance General appearance: Present: well-developed, well-nourished, appears started age , chronically ill EENT: Present: ATNC, mucous membranes moist, hearing intact, vision intact Respiratory: Present: course breath sounds, rhonchi Cardiology: Present: edema (2+ pitting pretibial edema), regular rate, regular rhythm Gastrointestinal: Present: no tenderness Integumentary: Present: warm and dry Neurologic: Present: no focal deficit, alert and oriented x3 Musculoskeletal: Present: erythema (chronic discoloration and thickening of skin on bilateral shins.), no cyanosis Psychiatric: Present: mood/affect appropriate - Lab 01/19/17 03:29 01/19/17 03:29 Most recent lab results Calcium 9.1 mg/dL (8.6-10.8) 01/19/17 03:29 Consult Discharge Plan - Plan Referrals: Tristen Quintana MD [Primary Care Provider] - (Web request made 01/17/17 This patient will be placing in ECF) Prescriptions: Ertapenem [INVanz] 1,000 mg IVPB DAILY@1700 #13 vial
--- NOTE | 2017-01-19 16:59 | Internal Med Progress Note ---
<Farhat Butcher - Last Filed: 01/19/17 16:56> Date of Encounter: 01/19/17 Time of Encounter: 11:30 - Assessment and plan (1) Bacterial pneumonia Current Visit: Yes Status: Acute Assessment and plan: BAL has grown multidrug resistant ESBL proteus. Continue Ertapenem. Dose with dialysis. Continue O2 and bronchodialators as needed. Mild trend up in WBC. If still elevated tomorrow will consider broadening coverage. patient is currently hemodynamically stable. (2) ESBL (extended spectrum beta-lactamase) producing bacteria infection Current Visit: Yes Status: Acute Assessment and plan: as stated above continue contact precautions. (3) Acute and chronic respiratory failure Current Visit: Yes Status: Acute Assessment and plan: etiology is multifactorial. COPD, Morbid obesity/ possible OHS, Multifocal pneumonia. will continue O2 titrate to goal of 92%. (4) Morbid obesity with BMI of 45.0-49.9, adult Current Visit: Yes Status: Acute Assessment and plan: advise weight loss. (5) End stage renal disease Current Visit: Yes Status: Acute Assessment and plan: currently on Hemodialysis. appreciate Nephrologies assistance. (6) Leukocytosis Current Visit: Yes Status: Acute Assessment and plan: slight trend up. Continue to monitor. On appropriae antibiotics for ESBL. Afebrile. If trending up may consider coverage for MRSA. (7) Diabetes Current Visit: Yes Status: Acute Assessment and plan: Will reduce dosage of insulin as her glucose has been running low. (8) Hypoglycemia Current Visit: Yes Status: Acute Assessment and plan: as stated above. will recheck blood glucose more frequently until has resolved. (9) Somnolence Current Visit: Yes Status: Acute Assessment and plan: mild. will order BIPAP. Also spoke with Nursing to make sure we are not giving her too much O2 . titrate to O2of 92%. Also currently hypoglycemic. will continue to follow closely. (10) DVT prophylaxis Current Visit: Yes Status: Acute Assessment and plan: SQ heparin. - Subjective Interval history: No major events overnight. Patient is somewhat somnolent. howeve rshe wakes easily to voice commands. She states that her breathing is " the same" she denies any aches or pains. She has no further complaints or concerns at this time. - Constitutional Vitals: Temp Pulse Resp BP Pulse Ox 98.1 F 97 18 136/61 98 01/19/17 10:29 01/19/17 10:29 01/19/17 10:29 01/19/17 10:29 01/19/17 10:29 General appearance: Present: morbidly obese, answers questions appropriately Exam: General: This is a well-developed well-nourished 61-year-old female. She is currently somewhat slumped somewhat but she wakes easily to voice. She is alert person place and situation answers questions appropriately. She is in no acute distress this time. HEENT: Anicteric sclera, he was equally round reactive to light and accommodation, normocephalic and atraumatic. Moist mucous membranes, neck is obese, supple, no mass or thyromegaly. Heart: Regular rate and rhythm without murmurs rubs or gallops. Lungs: Mild scant extorting wheezes. Diminished lung sounds. Exam somewhat limited by body habitus. Abdomen: Obese, mildly distended, bowel sounds positive, no organomegaly, nontender to palpation. Musculoskeletal: Grossly normal for age no gross deformities noted. Extremities: No clubbing, cyanosis. There is some mild pedal edema bilaterally. Integument: No rash or lesions. Internal Medicine: Result - Labs CBC & Chem 7: 01/19/17 03:29 01/19/17 03:29 Labs: Short CBC 01/19/17 Range/Units 03:29 WBC 15.9 H (4.3-11.1) K/mcL Hgb 11.4 L (11.5-15.4) g/dL Hct 36.4 (35.3-44.9) % Plt Count 162 (140-400) K/mcL Neutrophils # 13.2 H (1.6-8.9) K/mcL BMP 01/19/17 03:29 Sodium 138 Potassium 4.5 Chloride 100 Carbon Dioxide 23 BUN 70 H D Creatinine 2.60 H Glucose 57 L Calcium 9.1 Consult Discharge Plan - Plan Referrals: Tristen Quintana MD [Primary Care Provider] - (Web request made 01/17/17 This patient will be placing in ECF) Prescriptions: Ertapenem [INVanz] 1,000 mg IVPB DAILY@1700 #13 vial <Juan Daniel Mendoza - Last Filed: 01/19/17 17:31> Date of Encounter: 01/19/17 - Constitutional Vitals: Temp Pulse Resp BP Pulse Ox 98.4 F 90 18 145/71 94 01/19/17 17:26 01/19/17 17:26 01/19/17 17:26 01/19/17 17:26 01/19/17 17:26 Internal Medicine: Result - Labs CBC & Chem 7: 01/19/17 03:29 01/19/17 03:29 Labs: Short CBC 01/19/17 Range/Units 03:29 WBC 15.9 H (4.3-11.1) K/mcL Hgb 11.4 L (11.5-15.4) g/dL Hct 36.4 (35.3-44.9) % Plt Count 162 (140-400) K/mcL Neutrophils # 13.2 H (1.6-8.9) K/mcL BMP 01/19/17 03:29 Sodium 138 Potassium 4.5 Chloride 100 Carbon Dioxide 23 BUN 70 H D Creatinine 2.60 H Glucose 57 L Calcium 9.1 - Attending Attestation I examined this patient and my medical decision-making was reviewed with the GRAPHICS SOFTWARE ENGINEER/PA/Advanced Practice Nurse/Resident Physician. I agree with the documented findings, disposition and treatment plan as described except to the extent set forth below. Continue antibiotics. Decrease insulin dose.
[2017-01-19] MEDS ORDERED: *HR* Dextrose 50 % in Water (Syg) 50 ML SYRINGE ONE (18:14)
[2017-01-19] MEDS: *HR* Dextrose 50 % in Water (Syg) 50 ML SYRINGE IVP PRN (18:20)
[2017-01-19] MEDS: ARIPiprazole 10 MG TABLET PO SCH (22:04)
[2017-01-20] MEDS: *HR* Heparin 5,000 UNIT/ML VIAL SQ SCH ×3 (06:06→22:00)
[2017-01-20] MEDS: *HR* OxyCODONE ER (12 HR) 20 MG TABLET PO SCH ×4 (06:06→18:10)
[2017-01-20] MEDS: Tiotropium 18 MCG inhalation IH SCH (07:46)
[2017-01-20 07:52] LABS: Basophils % 0.2 %; Eosinophils # 0.2 K/mcL (0.0-0.6); Eosinophils % 1.7 %; Hematocrit 32.9 % (35.3-44.9); Hemoglobin 10.2 g/dL (11.5-15.4); Immature Granulocytes % 1.5 % (0-4); Lymphocytes # 2.1 K/mcL (0.6-4.6); Mean Corpuscular Hemoglobin 25.6 pg (28.0-33.3); Mean Corpuscular Volume 82.7 fL (83.0-100.0); Mean Platelet Volume 10.9 fL (9.4-12.4); Monocytes # 0.8 K/mcL (0.0-1.3); Monocytes % 7.5 %; Neutrophils # 6.8 K/mcL (1.6-8.9); Platelet Count 154 K/mcL (140-400); Red Blood Count 3.98 M/mcL (3.82-4.97); Red Cell Distribution Width 16.1 % (11.5-14.5); Segmented Neutrophils % 68.1 %
[2017-01-20 08:00] LABS: Calcium 9.1 mg/dL (8.6-10.8); Potassium 4.6 mEq/L (3.5-4.5)
[2017-01-20] MEDS: Insulin LISPRO 300 UNITS/3 ML VIAL SQ SCH ×4 (08:24→22:05)
[2017-01-20] MEDS: amLODIPine 5 MG TABLET PO SCH ×2 (08:33→09:01)
[2017-01-20] MEDS: Benzonatate 100 MG CAPSULE PO SCH ×3 (08:33→22:00)
[2017-01-20] MEDS: predniSONE 5 MG TABLET PO SCH (08:33)
[2017-01-20] MEDS: Furosemide 40 MG TABLET PO SCH ×3 (08:33→17:36)
[2017-01-20] MEDS: Insulin DETEMIR 100 UNIT/ML X5UNITS SQ SCH (08:34)
[2017-01-20] MEDS: Gabapentin 100 MG CAPSULE PO SCH ×2 (08:34→15:31)
[2017-01-20] MEDS: Calcium Acetate 667 MG CAPSULE PO SCH ×4 (08:34→17:36)
--- NOTE | 2017-01-20 10:21 | Nephrology Progress Note ---
Date of Encounter: 01/20/17 Time of Encounter: 09:25 - Assessment and Plan (1) ESRD (end stage renal disease) Current Visit: No Status: Chronic Regular HD on . Plan for dialysis today, may need to coordinate timing for antibiotic purposes. Renal diet-ordered Fluid restriction-ordered Strict I/Os Avoid nephrotoxins if possible (2) Pneumonia Current Visit: No Status: Suspected Cultures positive for ESBL Proteus. Patient re-admitted for IV antibiotics Management per primary service. Qualifiers: Pneumonia type: due to unspecified organism Laterality: bilateral Lung location: lower lobe of lung Qualified Code(s): J18.9 - Pneumonia, unspecified organism (3) Proteus mirabilis infection Current Visit: Yes Status: Acute (4) ESBL (extended spectrum beta-lactamase) producing bacteria infection Current Visit: Yes Status: Acute (5) CHF (congestive heart failure) Current Visit: No Status: Chronic per primary service Qualifiers: Congestive heart failure type: diastolic Congestive heart failure chronicity: acute on chronic Qualified Code(s): I50.33 - Acute on chronic diastolic (congestive) heart failure (6) Chronic respiratory failure Current Visit: No Status: Chronic per primary service Qualifiers: Respiratory failure complication: unspecified whether with hypoxia or hypercapnia Qualified Code(s): J96.10 - Chronic respiratory failure, unspecified whether with hypoxia or hypercapnia (7) DM2 (diabetes mellitus, type 2) Current Visit: No Status: Chronic per primary service Qualifiers: Diabetes mellitus complication status: with kidney complications Diabetes mellitus complication detail: with chronic kidney disease Diabetes mellitus residential insulin use: with residential use Chronic kidney disease stage: on chronic dialysis Qualified Code(s): E11.22 - Type 2 diabetes mellitus with diabetic chronic kidney disease; N18.6 - End stage renal disease; Z79.4 - retirement (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 of insulin; Z99.2 - Dependence on renal dialysis (8) Edema Current Visit: No Status: Chronic Qualifiers: Edema type: generalized Qualified Code(s): R60.1 - Generalized edema (9) HTN (hypertension) Current Visit: No Status: Chronic Qualifiers: Hypertension type: essential hypertension Qualified Code(s): I10 - Essential (primary) hypertension (10) DVT prophylaxis Current Visit: No Status: Acute SQ heparin per primary service. Subjective Principal diagnosis: ESBL infection Interval history: Patient awake and alert this morning. Afebrile. No noted events overnight. States she continues to have difficulty in breathing. Objective - Vital Signs Vital signs: Vital Signs Temp Pulse Resp BP Pulse Ox 01/20/17 07:56 97.4 F L 80 16 111/63 99 01/20/17 05:08 97.9 F 76 16 125/53 99 01/19/17 23:58 98.2 F 82 16 132/74 96 01/19/17 19:29 99.5 F 84 16 144/68 98 01/19/17 17:26 98.4 F 90 18 145/71 94 01/19/17 10:29 98.1 F 97 18 136/61 98 Intake and Output 01/19/17 01/20/17 01/20/17 23:59 07:59 15:59 Intake Total 340 / 340 600 / 600 Output Total 1999 / 1999 Balance -1660 / -1660 600 / 600 Intake: IV Fluids 100 / 100 INVanz 500 MG In 0.9 % 100 / 100 Sodium Chloride 100 ML @ 100 mls/hr IVPB Q24H [facility] Rx#:[id number] Oral 240 / 240 600 / 600 Output: Urine 1000 / 1000 Urethral (Hawkins) 1000 / 1000 Catheter 1000 / 1000 Other: Meal Apple Juice x 2 Breakfast Percent of Meal Consumed 100% Blood Glucose* 99 60 102 - General Appearance General appearance: Present: well-developed, appears started age, chronically ill EENT: Present: ATNC, mucous membranes moist, hearing intact, vision intact Respiratory: Present: course breath sounds, rhonchi Cardiology: Present: edema (2+ bilateral pretibial edema), regular rate, regular rhythm Dialysis Vascular Access: Arteriovenous Graft Gastrointestinal: Present: normoactive bowel sounds, no tenderness, no guarding Integumentary: Present: no rash, warm and dry, chronic venous stasis (chronic discoloration and thickening of skin on bilateral shins.) Neurologic: Present: no focal deficit, alert and oriented x3 Musculoskeletal: Present: no deformities, no cyanosis Psychiatric: Present: mood/affect appropriate - Lab 01/20/17 07:41 01/20/17 07:41 Most recent lab results Calcium 9.1 mg/dL (8.6-10.8) 01/20/17 07:41 Consult Discharge Plan - Plan Referrals: Tristen Quintana MD [Primary Care Provider] - (patient will follow up with F PCP) Prescriptions: Ertapenem [INVanz] 1,000 mg IVPB DAILY@1700 #13 vial
[2017-01-20] MEDS ORDERED: 0.9 % Sodium Chloride 250 ML IVC PRN (10:39)
--- NOTE | 2017-01-20 16:07 | Internal Med Progress Note ---
<Farhat Butcher - Last Filed: 01/20/17 16:03> Date of Encounter: 01/20/17 Time of Encounter: 16:03 - Assessment and plan (1) Bacterial pneumonia Current Visit: Yes Status: Acute Assessment and plan: BAL has grown multidrug resistant ESBL proteus. Continue Ertapenem.-Day 4 Dose with dialysis. Continue O2 and bronchodialators as needed. (2) ESBL (extended spectrum beta-lactamase) producing bacteria infection Current Visit: Yes Status: Acute Assessment and plan: as stated above continue contact precautions. (3) Acute and chronic respiratory failure Current Visit: Yes Status: Acute Assessment and plan: etiology is multifactorial. COPD, Morbid obesity/ possible OHS, Multifocal pneumonia. will continue O2 titrate to goal of 92%. (4) Morbid obesity with BMI of 45.0-49.9, adult Current Visit: Yes Status: Acute Assessment and plan: advise weight loss. (5) End stage renal disease Current Visit: Yes Status: Acute Assessment and plan: currently on Hemodialysis. M/W/F appreciate Nephrologies assistance. (6) Leukocytosis Current Visit: Yes Status: Acute Assessment and plan: resolved (7) Diabetes Current Visit: Yes Status: Acute Assessment and plan: hold basal insulin as she is having episodes of hypoglycemia. (8) Hypoglycemia Current Visit: Yes Status: Acute Assessment and plan: as stated above. (9) Somnolence Current Visit: Yes Status: Resolved (10) Constipation Current Visit: Yes Status: Acute Assessment and plan: I will add a bowel regimen. (11) DVT prophylaxis Current Visit: Yes Status: Acute Assessment and plan: SQ heparin. - Subjective Interval history: No major events overnight. Patient states that she is breathing easier. She dose complain of having a cough still. Productive yellow/brown. she denies hemoptysis. She denies any aches or pains. She has no further complaints or concerns at this time. - Constitutional Vitals: Temp Pulse Resp BP Pulse Ox 97.6 F 82 18 144/64 99 01/20/17 11:44 01/20/17 11:44 01/20/17 11:44 01/20/17 11:44 01/20/17 11:44 General appearance: Present: A&O X 3, morbidly obese, no acute distress, answers questions appropriately - Head Head exam: Present: atraumatic, normocephalic - Eye Eye exam: Present: PERRL, conjuntiva pink, sclera anicteric Pupils: Present: PERRL - Neck Neck exam general surgery: Present: supple, trachea midline. Absent: lymphadenopathy - Respiratory Respiratory exam: Present: wheezes (BL expiratory mild. ). Absent: accessory muscle use, rales, rhonchi - GI/Abdominal GI/Abdominal exam: Present: normal bowel sounds, soft, no peritoneal signs. Absent: distended, tenderness Additional comments: obese - Extremities Exam Extremities exam: Present: pedal edema, warm, radial pulses palpable and symetrical. Absent: calf tenderness, cyanotic Additional comments: chronic venous stasis changes present. - Skin Skin exam: Present: dry, intact Internal Medicine: Result - Labs CBC & Chem 7: 01/20/17 07:41 01/20/17 07:41 Labs: Short CBC 01/20/17 Range/Units 07:41 WBC 10.0 (4.3-11.1) K/mcL Hgb 10.2 L (11.5-15.4) g/dL Hct 32.9 L (35.3-44.9) % Plt Count 154 (140-400) K/mcL Neutrophils # 6.8 (1.6-8.9) K/mcL BMP 01/20/17 07:41 Sodium 137 Potassium 4.6 H Chloride 101 Carbon Dioxide 22 BUN 76 H Creatinine 3.33 H Glucose 56 L Calcium 9.1 Consult Discharge Plan - Plan Referrals: Tristen Quintana MD [Primary Care Provider] - (patient will follow up with F PCP) Prescriptions: Ertapenem [INVanz] 1,000 mg IVPB DAILY@1700 #13 vial <Juan Daniel Mendoza - Last Filed: 01/20/17 18:29> Date of Encounter: 01/20/17 - Constitutional Vitals: Temp Pulse Resp BP Pulse Ox 97.6 F 82 18 144/64 99 01/20/17 11:44 01/20/17 11:44 01/20/17 11:44 01/20/17 11:44 01/20/17 11:44 Internal Medicine: Result - Labs CBC & Chem 7: 01/20/17 07:41 01/20/17 07:41 Labs: Short CBC 01/20/17 Range/Units 07:41 WBC 10.0 (4.3-11.1) K/mcL Hgb 10.2 L (11.5-15.4) g/dL Hct 32.9 L (35.3-44.9) % Plt Count 154 (140-400) K/mcL Neutrophils # 6.8 (1.6-8.9) K/mcL BMP 01/20/17 07:41 Sodium 137 Potassium 4.6 H Chloride 101 Carbon Dioxide 22 BUN 76 H Creatinine 3.33 H Glucose 56 L Calcium 9.1 - ABG Interpretation ABG results: ABG ABG pH 7.36 pH Units (7.32-7.45) 01/20/17 17:43 ABG pCO2 54 mmHg (35-45) H 01/20/17 17:43 ABG pO2 65 mmHg (85-104) L 01/20/17 17:43 ABG O2 Saturation 92 % (95-98) L 01/20/17 17:43 - Attending Attestation I examined this patient and my medical decision-making was reviewed with the MONOTYPE KEYBOARD OPERATOR/PA/Advanced Practice Nurse/Resident Physician. I agree with the documented findings, disposition and treatment plan as described except to the extent set forth below. drowsy in the afternoon, likely due to opiods, will decrease dose.
[2017-01-20] MEDS ORDERED: MOM Conc 10 ML UD.LIQ PO ONE (16:08)
[2017-01-20] MEDS: Sennosides/Docusate Sodium TABLET PO SCH (17:38)
[2017-01-20] MEDS: metOLazone 2.5 MG TABLET PO SCH (17:38)
[2017-01-20 17:54] LABS: ABG Base Excess 3.9 mEq/L (-2.0 to 3.0); ABG HCO3 30.5 mEQ/L (21-27); ABG Oxygen Saturation 92 % (95-98); ABG PCO2 54 mmHg (35-45); ABG PH 7.36 pH Units (7.32-7.45); ABG PO2 65 mmHg (85-104); ABG TCO2 32.2 mEq/L (20-26); Blood Gas FiO2 28 %
[2017-01-20] MEDS: ARIPiprazole 10 MG TABLET PO SCH (22:01)
[2017-01-21 06:35] LABS: Basophils % 0.2 %; Eosinophils # 0.2 K/mcL (0.0-0.6); Eosinophils % 1.6 %; Hematocrit 33.4 % (35.3-44.9); Immature Granulocytes % 1.2 % (0-4); Lymphocytes # 1.5 K/mcL (0.6-4.6); Lymphocytes % 13.5 %; Mean Corpuscular HGB Conc 29.9 g/dL (31.6-35.5); Mean Corpuscular Hemoglobin 24.9 pg (28.0-33.3); Mean Corpuscular Volume 83.3 fL (83.0-100.0); Mean Platelet Volume 11.3 fL (9.4-12.4); Monocytes # 0.9 K/mcL (0.0-1.3); Neutrophils # 8.3 K/mcL (1.6-8.9); Platelet Count 178 K/mcL (140-400); Red Blood Count 4.01 M/mcL (3.82-4.97); Red Cell Distribution Width 16.1 % (11.5-14.5); Segmented Neutrophils % 75.5 %
[2017-01-21 06:48] LABS: Calcium 8.9 mg/dL (8.6-10.8); Potassium 4.8 mEq/L (3.5-4.5)
[2017-01-21] MEDS: *HR* OxyCODONE ER (12 HR) 20 MG TABLET PO SCH ×2 (07:38→16:47)
[2017-01-21] MEDS: Sennosides/Docusate Sodium TABLET PO SCH (08:10)
[2017-01-21] MEDS: predniSONE 5 MG TABLET PO SCH (08:11)
[2017-01-21] MEDS: amLODIPine 5 MG TABLET PO SCH (08:11)
[2017-01-21] MEDS: Benzonatate 100 MG CAPSULE PO SCH (08:11)
[2017-01-21] MEDS: Furosemide 40 MG TABLET PO SCH ×2 (08:11→16:48)
[2017-01-21] MEDS: Calcium Acetate 667 MG CAPSULE PO SCH ×3 (08:12→16:47)
[2017-01-21] MEDS: Insulin LISPRO 300 UNITS/3 ML VIAL SQ SCH ×4 (08:12→22:42)
--- NOTE | 2017-01-21 10:37 | Nephrology Progress Note ---
Date of Encounter: 01/21/17 Time of Encounter: 10:10 - Assessment and Plan (1) ESRD (end stage renal disease) Current Visit: No Status: Chronic Regular HD on . Unable to complete yesterday's session, will continue with regular schedule at this time. May need to coordinate timing for antibiotic purposes. Renal diet-ordered Fluid restriction-ordered Strict I/Os Avoid nephrotoxins if possible (2) Pneumonia Current Visit: No Status: Suspected Cultures positive for ESBL Proteus. Patient re-admitted for IV antibiotics Day 5 of Ertapenem Management per primary service. Qualifiers: Pneumonia type: due to unspecified organism Laterality: bilateral Lung location: lower lobe of lung Qualified Code(s): J18.9 - Pneumonia, unspecified organism (3) Proteus mirabilis infection Current Visit: Yes Status: Acute (4) ESBL (extended spectrum beta-lactamase) producing bacteria infection Current Visit: Yes Status: Acute (5) CHF (congestive heart failure) Current Visit: No Status: Chronic per primary service Qualifiers: Congestive heart failure type: diastolic Congestive heart failure chronicity: acute on chronic Qualified Code(s): I50.33 - Acute on chronic diastolic (congestive) heart failure (6) Chronic respiratory failure Current Visit: No Status: Chronic per primary service Qualifiers: Respiratory failure complication: unspecified whether with hypoxia or hypercapnia Qualified Code(s): J96.10 - Chronic respiratory failure, unspecified whether with hypoxia or hypercapnia (7) DM2 (diabetes mellitus, type 2) Current Visit: No Status: Chronic with episodic hypoglycemia. Management per primary medicine service Qualifiers: Diabetes mellitus complication status: with kidney complications Diabetes mellitus complication detail: with chronic kidney disease Diabetes mellitus termite technician insulin use: with intermediate use Chronic kidney disease stage: on chronic dialysis Qualified Code(s): E11.22 - Type 2 diabetes mellitus with diabetic chronic kidney disease; N18.6 - End stage renal disease; Z79.4 - bed bug exterminator (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 of insulin; Z99.2 - Dependence on renal dialysis (8) Edema Current Visit: No Status: Chronic Qualifiers: Edema type: generalized Qualified Code(s): R60.1 - Generalized edema (9) HTN (hypertension) Current Visit: No Status: Chronic Qualifiers: Hypertension type: essential hypertension Qualified Code(s): I10 - Essential (primary) hypertension (10) DVT prophylaxis Current Visit: No Status: Acute SQ heparin per primary service. Subjective Principal diagnosis: ESBL infection Interval history: Patient awake and alert this morning. Afebrile. States she continues to have difficulty in breathing. Dialysis was stopped short yesterday as patient was very lethargic and somnolent, CT head done and was negative for acute findings. Patient states she does not remember going to dialysis yesterday. Patient notes BG labile, with hypoglycemia of 50 this AM. Objective - Vital Signs Vital signs: Vital Signs Temp Pulse Resp BP Pulse Ox 01/21/17 07:39 97.8 F 81 20 113/56 100 01/21/17 03:47 98.4 F 80 18 144/74 98 01/21/17 00:02 98.5 F 90 17 133/61 99 01/20/17 20:00 98.0 F 94 16 141/70 95 01/20/17 17:40 98.3 F 20 121/64 01/20/17 17:30 122/64 01/20/17 17:15 124/52 01/20/17 17:00 155/73 01/20/17 16:30 112/73 01/20/17 16:00 120/71 01/20/17 15:30 116/63 01/20/17 15:15 115/60 01/20/17 15:00 98.3 F 18 124/60 01/20/17 11:44 97.6 F 82 18 144/64 99 Intake and Output 01/20/17 01/21/17 01/21/17 23:59 07:59 15:59 Output Total 450 / 450 950 / 950 Balance -450 / -450 -950 / -950 Output: Urine 0 / 0 Total Dialysis Output 450 / 450 Catheter 950 / 950 Other: Meal Breakfast Percent of Meal Consumed 0% Stool Size Small Stool Consistency formed Stool Color Brown # Urine Diapers 1 # Bowel Movement Diapers 1 Weight 93.043 kg Blood Glucose* 289 292 Hemodialysis Net Fluid 450 Removed (mL) Patient Weight 01/21/17 23:59 Weight 93.043 kg - General Appearance General appearance: Present: well-developed, appears started age, chronically ill EENT: Present: ATNC, mucous membranes moist, hearing intact, vision intact Respiratory: Present: wheezing, course breath sounds, rhonchi (decreased rhonchi from yesterday) Cardiology: Present: edema (2+ bilateral pretibial edema), regular rate, regular rhythm Gastrointestinal: Present: normoactive bowel sounds, no tenderness, no guarding Integumentary: Present: no rash, warm and dry, chronic venous stasis Neurologic: Present: no focal deficit, alert and oriented x3 Musculoskeletal: Present: no deformities, no cyanosis Psychiatric: Present: mood/affect appropriate, cooperative - Lab 01/21/17 05:34 01/21/17 05:34 Most recent lab results ABG pH 7.36 pH Units (7.32-7.45) 01/20/17 17:43 ABG pCO2 54 mmHg (35-45) H 01/20/17 17:43 ABG pO2 65 mmHg (85-104) L 01/20/17 17:43 ABG HCO3 30.5 mEQ/L (21-27) H 01/20/17 17:43 ABG O2 Saturation 92 % (95-98) L 01/20/17 17:43 Calcium 8.9 mg/dL (8.6-10.8) 01/21/17 05:34 Consult Discharge Plan - Plan Referrals: Tristen Quintana MD [Primary Care Provider] - (patient will follow up with F PCP) Prescriptions: Ertapenem [INVanz] 1,000 mg IVPB DAILY@1700 #13 vial
[2017-01-21] MEDS: Tiotropium 18 MCG inhalation IH SCH (10:43)
[2017-01-21] MEDS: Insulin DETEMIR 100 UNIT/ML X5UNITS SQ SCH ×2 (12:46→22:37)
--- NOTE | 2017-01-21 14:17 | Internal Med Progress Note ---
<DominickCharisseedna Raymundo - Last Filed: 01/21/17 19:35> Date of Encounter: 01/21/17 Time of Encounter: 14:17 - Assessment and plan (1) Bacterial pneumonia Current Visit: Yes Status: Acute Assessment and plan: BAL has grown multidrug resistant ESBL proteus. Continue Ertapenem.-Day 5 Dose with dialysis. Continue O2 and bronchodialators as needed. (2) ESBL (extended spectrum beta-lactamase) producing bacteria infection Current Visit: Yes Status: Acute Assessment and plan: See plan above Continue contact precautions. (3) Acute and chronic respiratory failure Current Visit: Yes Status: Acute Assessment and plan: Etiology is multifactorial and likely secondary to Multifocal pneumonia, COPD, Morbid obesity with possible OHS Patient O2 sat of 100% on 2L Continue O2 titrate to goal of 92% Qualifiers: Respiratory failure complication: hypoxia Qualified Code(s): J96.21 - Acute and chronic respiratory failure with hypoxia (4) Morbid obesity with BMI of 45.0-49.9, adult Current Visit: Yes Status: Chronic Assessment and plan: advise weight loss (5) End stage renal disease Current Visit: Yes Status: Chronic Assessment and plan: currently on Hemodialysis. M/W/F appreciate Nephrology assistance (6) Leukocytosis Current Visit: Yes Status: Resolved Assessment and plan: resolved Qualifiers: Leukocytosis type: unspecified Qualified Code(s): D72.829 - Elevated white blood cell count, unspecified (7) Diabetes Current Visit: Yes Status: Acute Assessment and plan: Restart Levemir 20u SQ BID Continue high-dose SS ACHS Continue to monitor blood sugar Qualifiers: Diabetes mellitus type: type 2 Diabetes mellitus complication status: with kidney complications Diabetes mellitus complication detail: with chronic kidney disease Diabetes mellitus usp insulin use: with usp use Chronic kidney disease stage: on chronic dialysis Qualified Code(s): E11.22 - Type 2 diabetes mellitus with diabetic chronic kidney disease; N18.6 - End stage renal disease; 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.4 - 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; Z99.2 - Dependence on renal dialysis (8) Hypoglycemia Current Visit: Yes Status: Resolved Assessment and plan: resolved (9) Somnolence Current Visit: Yes Status: Resolved Assessment and plan: Associated with hypoglycemia Continue to monitor POC glucose (10) Constipation Current Visit: Yes Status: Acute Assessment and plan: Continue bowel regimen Qualifiers: Constipation type: unspecified constipation type Qualified Code(s): K59.00 - Constipation, unspecified (11) DVT prophylaxis Current Visit: Yes Status: Acute Assessment and plan: Heparin SQ BID - Time Spent With Patient 25 - 35 minutes (25 minutes including time with patient and time coordinating care) - Subjective Interval history: Patient doing well today. Breathing is improved. However, patient does complain of dyspnea at this time. Admits pain to deep inspiration. Denies chest pain. No additional concerns at this time. - Constitutional Vitals: Temp Pulse Resp BP Pulse Ox 97.7 F 91 20 132/67 100 01/21/17 12:00 01/21/17 12:00 01/21/17 12:00 01/21/17 12:00 01/21/17 12:00 General appearance: Present: A&O X 3, morbidly obese, no acute distress, answers questions appropriately - Head Head exam: Present: atraumatic, normocephalic - Eye Eye exam: Present: PERRL, conjuntiva pink, sclera anicteric Pupils: Present: PERRL - Neck Neck exam general surgery: Present: supple, trachea midline. Absent: lymphadenopathy - Respiratory Respiratory exam: Present: decreased breath sounds, wheezes (bilateral expirator wheezing at lung bases). Absent: accessory muscle use, rales, rhonchi - Cardiovascular Cardiovascular exam: Present: RRR, +S1, +S2. Absent: diastolic murmur, gallop, rubs, systolic murmur - GI/Abdominal GI/Abdominal exam: Present: normal bowel sounds, soft, no peritoneal signs. Absent: distended, tenderness - Extremities Exam Extremities exam: Present: pedal edema (1+ pitting edema to bilateral lower extremities. B/L lower extremities with red to violaceous dermatitis with waxy scales), warm, radial pulses palpable and symetrical. Absent: calf tenderness, cyanotic - Neurological Exam Neurological exam: Present: CN II-XII intact, oriented X3, no focal deficits. Absent: facial droop, speech deficit - Skin Skin exam: Present: dry, intact Internal Medicine: Result - Labs CBC & Chem 7: 01/21/17 05:34 01/21/17 05:34 Labs: Short CBC 01/21/17 Range/Units 05:34 WBC 10.9 (4.3-11.1) K/mcL Hgb 10.0 L (11.5-15.4) g/dL Hct 33.4 L (35.3-44.9) % Plt Count 178 (140-400) K/mcL Neutrophils # 8.3 (1.6-8.9) K/mcL BMP 01/21/17 05:34 Sodium 133 L Potassium 4.8 H Chloride 95 L Carbon Dioxide 26 BUN 61 H Creatinine 3.56 H Glucose 319 H Calcium 8.9 - ABG Interpretation ABG results: ABG ABG pH 7.36 pH Units (7.32-7.45) 01/20/17 17:43 ABG pCO2 54 mmHg (35-45) H 01/20/17 17:43 ABG pO2 65 mmHg (85-104) L 01/20/17 17:43 ABG O2 Saturation 92 % (95-98) L 01/20/17 17:43 - Impressions Impressions Head CT 01/20/17 17:37 IMPRESSION: 1. No acute intracranial abnormality. 2. Mild chronic small vessel ischemic changes. D/ / Naren Shore MD / Naren Shore MD Interpreting Provider: Naren Shore MD Consult Discharge Plan - Plan Referrals: Tristen Quintana MD [Primary Care Provider] - (patient will follow up with F PCP) Prescriptions: Ertapenem [INVanz] 1,000 mg IVPB DAILY@1700 #13 vial <Juan Daniel Mendoza - Last Filed: 01/22/17 08:33> Date of Encounter: 01/22/17 - Constitutional Vitals: Temp Pulse Resp BP Pulse Ox 97.9 F 90 16 128/74 93 01/22/17 07:02 01/22/17 07:02 01/22/17 07:02 01/22/17 07:02 01/22/17 08:11 Internal Medicine: Result - Labs CBC & Chem 7: 01/22/17 05:58 01/21/17 05:34 Labs: Short CBC 01/22/17 Range/Units 05:58 WBC 11.3 H (4.3-11.1) K/mcL Hgb 10.3 L (11.5-15.4) g/dL Hct 34.5 L (35.3-44.9) % Plt Count 182 (140-400) K/mcL Neutrophils # 8.9 (1.6-8.9) K/mcL - ABG Interpretation ABG results: ABG ABG pH 7.36 pH Units (7.32-7.45) 01/20/17 17:43 ABG pCO2 54 mmHg (35-45) H 01/20/17 17:43 ABG pO2 65 mmHg (85-104) L 01/20/17 17:43 ABG O2 Saturation 92 % (95-98) L 01/20/17 17:43 - Attending Attestation I examined this patient and my medical decision-making was reviewed with the AQUARIST/PA/Advanced Practice Nurse/Resident Physician. I agree with the documented findings, disposition and treatment plan as described except to the extent set forth below. stable, possible d/c tomorrow. remove pereira.
[2017-01-21] MEDS: *HR* Heparin 5,000 UNIT/ML VIAL SQ SCH (16:49)
[2017-01-21] MEDS: ARIPiprazole 10 MG TABLET PO SCH (22:37)
[2017-01-22] MEDS: *HR* Heparin 5,000 UNIT/ML VIAL SQ SCH ×2 (06:02→17:33)
[2017-01-22] MEDS: *HR* OxyCODONE ER (12 HR) 20 MG TABLET PO SCH ×2 (06:02→17:09)
[2017-01-22 06:04] LABS: Basophils % 0.2 %; Eosinophils # 0.2 K/mcL (0.0-0.6); Eosinophils % 1.9 %; Hematocrit 34.5 % (35.3-44.9); Hemoglobin 10.3 g/dL (11.5-15.4); Immature Granulocytes % 1.2 % (0-4); Lymphocytes # 1.4 K/mcL (0.6-4.6); Lymphocytes % 12.5 %; Mean Corpuscular HGB Conc 29.9 g/dL (31.6-35.5); Mean Corpuscular Hemoglobin 25.2 pg (28.0-33.3); Mean Corpuscular Volume 84.6 fL (83.0-100.0); Mean Platelet Volume 10.8 fL (9.4-12.4); Monocytes # 0.6 K/mcL (0.0-1.3); Monocytes % 4.9 %; Neutrophils # 8.9 K/mcL (1.6-8.9); Platelet Count 182 K/mcL (140-400); Red Blood Count 4.08 M/mcL (3.82-4.97); Segmented Neutrophils % 79.3 %
[2017-01-22] MEDS ORDERED: 0.9 % Sodium Chloride 250 ML IVC PRN (06:46)
[2017-01-22] MEDS ORDERED: 0.9 % Sodium Chloride 1,000 ML PRIME SCH (07:00)
[2017-01-22] MEDS: Insulin LISPRO 300 UNITS/3 ML VIAL SQ SCH ×4 (07:31→21:50)
[2017-01-22] MEDS: Sennosides/Docusate Sodium TABLET PO SCH (08:00)
[2017-01-22] MEDS: Calcium Acetate 667 MG CAPSULE PO SCH ×3 (08:00→17:10)
[2017-01-22] MEDS: Insulin DETEMIR 100 UNIT/ML X5UNITS SQ SCH ×2 (08:01→20:20)
[2017-01-22 10:12] LABS: Calcium 8.9 mg/dL (8.6-10.8)
[2017-01-22 10:13] LABS: Potassium 3.5 mEq/L (3.5-4.5)
[2017-01-22] MEDS: Tiotropium 18 MCG inhalation IH SCH (10:14)
--- NOTE | 2017-01-22 10:45 | Nephrology Progress Note ---
Date of Encounter: 01/22/17 Time of Encounter: 10:10 - Assessment and Plan (1) ESRD (end stage renal disease) Current Visit: No Status: Chronic Regular HD on . Undergoing regular dialysis at this time. Coordinate timing for antibiotic purposes. Renal diet-ordered Fluid restriction-ordered Strict I/Os Avoid nephrotoxins if possible (2) Pneumonia Current Visit: No Status: Suspected Cultures positive for ESBL Proteus. Patient re-admitted for IV antibiotics Day 6 of Ertapenem Management per primary service. Qualifiers: Pneumonia type: due to unspecified organism Laterality: bilateral Lung location: lower lobe of lung Qualified Code(s): J18.9 - Pneumonia, unspecified organism (3) Proteus mirabilis infection Current Visit: Yes Status: Acute (4) ESBL (extended spectrum beta-lactamase) producing bacteria infection Current Visit: Yes Status: Acute (5) CHF (congestive heart failure) Current Visit: No Status: Chronic per primary service Qualifiers: Congestive heart failure type: diastolic Congestive heart failure chronicity: acute on chronic Qualified Code(s): I50.33 - Acute on chronic diastolic (congestive) heart failure (6) Chronic respiratory failure Current Visit: No Status: Chronic per primary service Qualifiers: Respiratory failure complication: unspecified whether with hypoxia or hypercapnia Qualified Code(s): J96.10 - Chronic respiratory failure, unspecified whether with hypoxia or hypercapnia (7) DM2 (diabetes mellitus, type 2) Current Visit: No Status: Chronic with episodic hypoglycemia. Management per primary medicine service Qualifiers: Diabetes mellitus complication status: with kidney complications Diabetes mellitus complication detail: with chronic kidney disease Diabetes mellitus halfway insulin use: with halfway use Chronic kidney disease stage: on chronic dialysis Qualified Code(s): E11.22 - Type 2 diabetes mellitus with diabetic chronic kidney disease; N18.6 - End stage renal disease; Z79.4 - FPC (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 of insulin; Z99.2 - Dependence on renal dialysis (8) Edema Current Visit: No Status: Chronic Qualifiers: Edema type: generalized Qualified Code(s): R60.1 - Generalized edema (9) HTN (hypertension) Current Visit: No Status: Chronic Qualifiers: Hypertension type: essential hypertension Qualified Code(s): I10 - Essential (primary) hypertension (10) DVT prophylaxis Current Visit: No Status: Acute SQ heparin per primary service. Subjective Principal diagnosis: ESBL infection Interval history: Patient seen during dialysis session, sleeping but easily arousable. Afebrile. States she continues to have difficulty in breathing. Objective - Vital Signs Vital signs: Vital Signs Temp Pulse Resp BP Pulse Ox 01/22/17 08:11 93 01/22/17 07:02 97.9 F 90 16 128/74 93 01/22/17 04:39 97.4 F L 78 16 130/67 90 01/21/17 20:43 98.3 F 80 18 127/69 99 01/21/17 17:05 97.6 F 86 18 127/68 100 01/21/17 12:00 97.7 F 91 20 132/67 100 01/21/17 10:43 22 94 Intake and Output 01/21/17 01/22/17 01/22/17 23:59 07:59 15:59 Intake Total 240 / 240 Output Total 300 / 300 Balance -300 / -300 240 / 240 Intake: Oral 240 / 240 Output: Catheter 300 / 300 Other: Meal Breakfast Percent of Meal Consumed 50% Stool Size Moderate Stool Consistency formed Stool Color Brown Weight 93.44 kg Blood Glucose* 196 128 Patient Weight 01/22/17 23:59 Weight 93.44 kg - General Appearance General appearance: Present: well-developed, appears started age, chronically ill EENT: Present: ATNC, mucous membranes moist, hearing intact, vision intact Respiratory: Present: wheezing, course breath sounds, rhonchi Cardiology: Present: edema (2+ bilateral pretibial edema), regular rate, regular rhythm Dialysis Vascular Access: Arteriovenous Graft Gastrointestinal: Present: normoactive bowel sounds, no tenderness, no guarding Integumentary: Present: no rash, warm and dry, chronic venous stasis Neurologic: Present: no focal deficit, alert and oriented x3 Musculoskeletal: Present: no deformities, no cyanosis Psychiatric: Present: mood/affect appropriate, cooperative - Lab 01/22/17 05:58 01/22/17 09:37 Most recent lab results ABG pH 7.36 pH Units (7.32-7.45) 01/20/17 17:43 ABG pCO2 54 mmHg (35-45) H 01/20/17 17:43 ABG pO2 65 mmHg (85-104) L 01/20/17 17:43 ABG HCO3 30.5 mEQ/L (21-27) H 01/20/17 17:43 ABG O2 Saturation 92 % (95-98) L 01/20/17 17:43 Calcium 8.9 mg/dL (8.6-10.8) 01/22/17 09:37 Consult Discharge Plan - Plan Referrals: Tristen Quintana MD [Primary Care Provider] - (patient will follow up with ECF PCP) Prescriptions: Ertapenem [INVanz] 1,000 mg IVPB DAILY@1700 #13 vial
[2017-01-22] MEDS: Furosemide 40 MG TABLET PO SCH ×2 (13:39→17:09)
[2017-01-22] MEDS: amLODIPine 5 MG TABLET PO SCH (13:50)
--- NOTE | 2017-01-22 14:40 | Discharge Summary ---
<TanCharisse Zackary - Last Filed: 01/22/17 14:26> Date of Encounter: 01/22/17 Time of Encounter: 13:30 - Discharge Diagnosis (1) Bacterial pneumonia Priority: Primary Status: Acute (2) ESBL (extended spectrum beta-lactamase) producing bacteria infection Priority: Primary Status: Acute (3) Acute and chronic respiratory failure Priority: Primary Status: Acute Qualifiers: Respiratory failure complication: hypoxia Qualified Code(s): J96.21 - Acute and chronic respiratory failure with hypoxia (4) Morbid obesity with BMI of 45.0-49.9, adult Priority: Secondary Status: Chronic (5) End stage renal disease Priority: Secondary Status: Chronic (6) Leukocytosis Priority: Primary Status: Resolved Qualifiers: Leukocytosis type: unspecified Qualified Code(s): D72.829 - Elevated white blood cell count, unspecified (7) Diabetes Priority: Secondary Status: Chronic Qualifiers: Diabetes mellitus type: type 2 Diabetes mellitus complication status: with kidney complications Diabetes mellitus complication detail: with chronic kidney disease Diabetes mellitus intermodal customer service insulin use: with chcf use Chronic kidney disease stage: on chronic dialysis Qualified Code(s): E11.22 - Type 2 diabetes mellitus with diabetic chronic kidney disease; N18.6 - End stage renal disease; Z79.4 - alf (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 of insulin; Z99.2 - Dependence on renal dialysis (8) Hypoglycemia Priority: Secondary Status: Resolved (9) Somnolence Priority: Secondary Status: Resolved (10) Constipation Priority: Secondary Status: Acute Qualifiers: Constipation type: unspecified constipation type Qualified Code(s): K59.00 - Constipation, unspecified (11) DVT prophylaxis Priority: Secondary Status: Acute - Discharge Medications Prescriptions: Ertapenem [INVanz] 500 mg IVPB DAILY #14 vial Home Medications: Amitriptyline [Elavil] 100 mg PO HS 05/11/15 [History] Clopidogrel [Plavix] 75 mg PO DAILY 05/11/15 [History] Omeprazole [PriLOSEC] 20 mg PO BID 05/11/15 [History] Rosuvastatin [Crestor] 40 mg PO HS 05/11/15 [History] Sevelamer [Renvela] 800 mg PO TIDWM 05/11/15 [History] Aripiprazole [Abilify] 10 mg PO HS 06/12/15 [History] Colestipol HCl [Colestid] 1 gm PO BID 06/12/15 [History] Carvedilol 12.5 mg PO BID 10/28/15 [History] Amlodipine [Norvasc] 5 mg PO DAILY 06/09/16 [History] Insulin Glargine,Hum.rec.anlog [Lantus Solostar] 60 unit SQ BID 06/09/16 [ History] Gabapentin [Neurontin] 200 mg PO TID 30 Days 06/18/16 [Rx] Calcium Acetate [Phos-LO] 667 mg PO TIDWM 09/06/16 [History] Furosemide [Lasix] 80 mg PO BID 09/06/16 [History] Insulin LISPRO [Humalog] 20 unit SQ TIDWM PRN 09/06/16 [History] Metolazone [Zaroxolyn] 2.5 mg PO MOWEFR 09/06/16 [History] OxyCODONE/APAP 10/325 [Percocet 10/325 MG] 1 each PO Q6H PRN #10 tablet [Rx] Albuterol Sulfate [Ventolin Hfa] 2 puff IH Q4H PRN 12/29/16 [History] Ondansetron ODT [Zofran ODT] 4 mg SL Q8HR PRN 12/29/16 [History] Oxycodone HCl [Oxycontin] 60 mg PO Q12H 12/31/16 [History] Tiotropium [Spiriva] 1 puff IH DAILY 01/12/17 [History] Acetaminophen w/Cod 300-30 mg [Tylenol w/Codeine #3] 2 tab PO Q4HR PRN #30 tablet 01/16/17 [Rx] Benzonatate [Tessalon] 200 mg PO TID PRN #40 capsule 01/16/17 [Rx] Guaifenesin [Guaifenesin ER] 1,200 mg PO BID #10 tab.er.12h 01/16/17 [Rx] Ertapenem [INVanz] 500 mg IVPB DAILY #14 vial 01/22/17 [Rx] GuaiFENesin/Dextromethorphan [Robitussin/Dm] 10 ml PO Q6HR udc 01/22/17 [Rx] Sennosides/Docusate Sodium [Senna Plus] 1 each PO DAILY tablet 01/22/17 [Rx] Allergies/Adverse Reactions: Allergies No Known Allergies Allergy (Verified 01/12/17 11:29) Procedures/tests Complete & Pending: Procedures Performed prior 72 hours Category Date Time Status CT head/brain wo con [CT] Stat Cat Scan 01/20/17 17:37 Completed Date of admission: 01/17/17 15:55 Primary care physician: Tristen Quintana MD Consults: 01/17/17 16:58 Consult to Invasive Line Access Team [CONS] Routine Reason for Consult: IV antibiotics at home. Ertapenem qD x 14 days Line Type: EPIV 01/17/17 17:02 Consult to Litigation Associate [CONS] Routine Reason for SW Consult: needs home atb's set up 01/17/17 18:19 Consult to Occupational Therapy [CONS] Routine Comment: Evaluate, develop and implement POC Consult to Physical Therapy [CONS] Routine Comment: Evaluate, develop and implement POC Consult to Litigation Associate [CONS] Routine Reason for SW Consult: IV atb's upon discharge. She was DC'd yesterday with and has fallen twice. OT/PT onboard- may need ECF. 01/17/17 18:22 Consult to Nephrology [CONS] Routine Consulting Provider: Yong Baker/MARCO/SWAPNA/MILLIE Reason for Consult: dialysis patient Time Notified: 18:22 Call Completed: Yes 01/18/17 09:30 Consult to Dialysis [CONS] ONCE 01/19/17 09:30 Consult to Dialysis [CONS] ONCE 01/20/17 10:45 Consult to Dialysis [CONS] ONCE 01/22/17 07:00 Consult to Dialysis [CONS] ONCE Discharging clinician: Juan Daniel Mendoza Anticipated date of discharge: 01/22/17 - Patient Status Disposition: Transfer SNF Condition: Fair Functional capacity at discharge: bed bound Overall status at discharge: patient is not back to baseline - Discharge Instructions Follow Up With: Tristen Quintana MD [Primary Care Provider] - (patient will follow up with ECF PCP) - Diet and Activity Activity: as per physical therapy Diet: diabetic diet, low fat, low cholesterol Hospital course: Ms. Riley is a 61 year old female with past medical history significant for atrial fibrillation, CAD, [place], CHF, COPD, CVA, PVD, type 2 DM, HLD, HTN, ESRD on dialysis MWF, DVT, fibromyalgia, GERD, nephrolithiasis, migraine, osteoporosis, who was admitted at [facility] from 01/10/17 until 01/16/17 for COPD exacerbation and multifocal aspiration pneumonia. Bronchoscopy per pulmonology was performed and cultures revealed Proteus mirabilis ESBL. Patient was instructed to return to [facility] on 01/17/17 for IV antibiotics. Upon return to hospital, patient admitted that she lives alone and does not have someone to care for her around the clock. She also admitted to having 2 falls in her home following discharge. Patient has been treated with IV Ertapenem during her hospital stay with O2 support and Albuterol nebulizers. She did have an episode of somnolence and was found to have hypoglycemia. Patient continues to have generalized weakness and muscular deconditioning. She is in stable condition and ready for discharge to SNF. She will require 2 weeks of IV Ertapenem following discharge. - Time Spent with Patient Total time spent providing and/or coordinating discharge services: Greater than 30 minutes (35 minutes including time with patient and coordinating care) - Constitutional Vitals: Temp Pulse Resp BP Pulse Ox 98.6 F 90 20 131/78 93 01/22/17 13:09 01/22/17 07:02 01/22/17 13:09 01/22/17 13:09 01/22/17 08:11 General appearance: Present: A&O X 3, morbidly obese, no acute distress, answers questions appropriately - Head Head exam: Present: atraumatic, normocephalic - Eye Eye exam: Present: PERRL, sclera anicteric Pupils: Present: PERRL - Neck Neck exam general surgery: Present: supple, trachea midline. Absent: lymphadenopathy - Respiratory Respiratory exam: Present: prolonged expiratory phase, rhonchi (diffuse ), wheezes (all lung tran). Absent: accessory muscle use, rales, respiratory distress, tachypnea - Cardiovascular Cardiovascular exam: Present: RRR, +S1, +S2. Absent: diastolic murmur, gallop, rubs, systolic murmur - GI/Abdominal GI/Abdominal exam: Present: normal bowel sounds, soft, no peritoneal signs. Absent: distended, tenderness - Extremities Exam Extremities exam: Present: pedal edema (1+ pitting edema ), warm, radial pulses palpable and symetrical. Absent: calf tenderness, cyanotic Additional comments: 1+ pitting edema to bilateral lower extremities. B/L lower extremities with red to violaceous dermatitis with waxy scales - Neurological Exam Neurological exam: Present: CN II-XII intact, oriented X3, no focal deficits. Absent: facial droop, speech deficit - Skin Skin exam: Present: dry, intact - Other Additional findings: Head CT 01/20/17 17:37 IMPRESSION: 1. No acute intracranial abnormality. 2. Mild chronic small vessel ischemic changes. D/ / Naren Shore MD / Naren Shore MD Interpreting Provider: Naren Shore MD <Juan Daniel Mendoza - Last Filed: 01/22/17 18:06> Date of Encounter: 01/22/17 Procedures/tests Complete & Pending: Procedures Performed prior 72 hours Category Date Time Status CT head/brain wo con [CT] Stat Cat Scan 01/20/17 17:37 Completed Date of admission: 01/17/17 15:55 Primary care physician: Tristen Quintana MD Consults: 01/17/17 16:58 Consult to Invasive Line Access Team [CONS] Routine Reason for Consult: IV antibiotics at home. Ertapenem qD x 14 days Line Type: EPIV 01/17/17 17:02 Consult to Litigation Associate [CONS] Routine Reason for SW Consult: needs home atb's set up 01/17/17 18:19 Consult to Occupational Therapy [CONS] Routine Comment: Evaluate, develop and implement POC Consult to Physical Therapy [CONS] Routine Comment: Evaluate, develop and implement POC Consult to Litigation Associate [CONS] Routine Reason for SW Consult: IV atb's upon discharge. She was DC'd yesterday with HH and has fallen twice. OT/PT onboard- may need ECF. 01/17/17 18:22 Consult to Nephrology [CONS] Routine Consulting Provider: Kidney Olivia/MARCO/SWAPNA/MILLIE Reason for Consult: dialysis patient Time Notified: 18:22 Call Completed: Yes 01/18/17 09:30 Consult to Dialysis [CONS] ONCE 01/19/17 09:30 Consult to Dialysis [CONS] ONCE 01/20/17 10:45 Consult to Dialysis [CONS] ONCE 01/22/17 07:00 Consult to Dialysis [CONS] ONCE Hospital course: Ms. Riley is a 61 year old female - Time Spent with Patient Total time spent providing and/or coordinating discharge services: - Constitutional Vitals: Temp Pulse Resp BP Pulse Ox 98.2 F 98 16 116/64 98 01/22/17 15:42 01/22/17 15:42 01/22/17 15:42 01/22/17 15:42 01/22/17 15:42 - Attending Attestation I examined this patient and my medical decision-making was reviewed with the TRAVEL COORDINATOR/PA/Advanced Practice Nurse/Resident Physician. I agree with the documented findings, disposition and treatment plan as described except to the extent set forth below. Continue iv antibiotics as per sensitivity. D/C today.
--- NOTE | 2017-01-22 15:04 | Physician Discharge Referral ---
ExtendedCare Referral Info Transfer To: SNF Provider in Charge: Juan Daniel Mendoza MD Provider in Charge after Transfer: PCP Institutional Level of Care: Skilled - Diagnosis (1) Bacterial pneumonia Priority: Primary Status: Acute (2) ESBL (extended spectrum beta-lactamase) producing bacteria infection Priority: Primary Status: Acute (3) Acute and chronic respiratory failure Priority: Primary Status: Acute (4) Morbid obesity with BMI of 45.0-49.9, adult Priority: Secondary Status: Chronic (5) End stage renal disease Priority: Secondary Status: Chronic (6) Leukocytosis Priority: Primary Status: Resolved (7) Diabetes Priority: Secondary Status: Chronic (8) Hypoglycemia Priority: Secondary Status: Resolved (9) Somnolence Priority: Secondary Status: Resolved (10) Constipation Priority: Secondary Status: Acute (11) DVT prophylaxis Priority: Secondary Status: Acute Prognosis: Fair Aware of Diagnosis: Patient Aware of Prognosis: Patient - Transfer Medications Prescriptions: Ertapenem [INVanz] 500 mg IVPB DAILY #14 vial Home Medications: Amitriptyline [Elavil] 100 mg PO HS 05/11/15 [History] Clopidogrel [Plavix] 75 mg PO DAILY 05/11/15 [History] Omeprazole [PriLOSEC] 20 mg PO BID 05/11/15 [History] Rosuvastatin [Crestor] 40 mg PO HS 05/11/15 [History] Sevelamer [Renvela] 800 mg PO TIDWM 05/11/15 [History] Aripiprazole [Abilify] 10 mg PO HS 06/12/15 [History] Colestipol HCl [Colestid] 1 gm PO BID 06/12/15 [History] Carvedilol 12.5 mg PO BID 10/28/15 [History] Amlodipine [Norvasc] 5 mg PO DAILY 06/09/16 [History] Insulin Glargine,Hum.rec.anlog [Lantus Solostar] 60 unit SQ BID 06/09/16 [ History] Gabapentin [Neurontin] 200 mg PO TID 30 Days 06/18/16 [Rx] Calcium Acetate [Phos-LO] 667 mg PO TIDWM 09/06/16 [History] Furosemide [Lasix] 80 mg PO BID 09/06/16 [History] Insulin LISPRO [Humalog] 20 unit SQ TIDWM PRN 09/06/16 [History] Metolazone [Zaroxolyn] 2.5 mg PO MOWEFR 09/06/16 [History] OxyCODONE/APAP 10/325 [Percocet 10/325 MG] 1 each PO Q6H PRN #10 tablet [Rx] Albuterol Sulfate [Ventolin Hfa] 2 puff IH Q4H PRN 12/29/16 [History] Ondansetron ODT [Zofran ODT] 4 mg SL Q8HR PRN 12/29/16 [History] Oxycodone HCl [Oxycontin] 60 mg PO Q12H 12/31/16 [History] Tiotropium [Spiriva] 1 puff IH DAILY 01/12/17 [History] Acetaminophen w/Cod 300-30 mg [Tylenol w/Codeine #3] 2 tab PO Q4HR PRN #30 tablet 01/16/17 [Rx] Benzonatate [Tessalon] 200 mg PO TID PRN #40 capsule 01/16/17 [Rx] Guaifenesin [Guaifenesin ER] 1,200 mg PO BID #10 tab.er.12h 01/16/17 [Rx] Ertapenem [INVanz] 500 mg IVPB DAILY #14 vial 01/22/17 [Rx] GuaiFENesin/Dextromethorphan [Robitussin/Dm] 10 ml PO Q6HR udc 01/22/17 [Rx] Sennosides/Docusate Sodium [Senna Plus] 1 each PO DAILY tablet 01/22/17 [Rx] Allergies/Adverse Reactions: Allergies No Known Allergies Allergy (Verified 01/12/17 11:29) - Respiratory Orders Oxygen / L per min (3L/min titrate to O2 sat greater than 92%) Smoking Cessation: Smoking cessation has been advised. For more information, call the [place] Tobacco Quit Line at 3-953-SNJC-NOW. - Advance Directives Code Status: Full Code - Mobility Orders Other (Per physical therapy) - Rehabiliation Orders Rehab Potential: Good Rehab Orders: Evaluation for Physical Therapy, Evaluation for Occupational Therapy - Diet Orders Regular (Diabetic and Low Fat Diet) CERTIFICATION: I certify that the transfer of the above named patient to an Extended Care Facility is necessary for the continuing treatment of the diagnosis listed. The above information is true and accurate reflection of patient's current condition. Confidential - Redisclosure prohibited without a patient's written consent.
[2017-01-22] MEDS: metOLazone 2.5 MG TABLET PO SCH (17:33)
[2017-01-22] MEDS: ARIPiprazole 10 MG TABLET PO SCH (20:20)
[2017-01-22] MEDS: *HR* Acetaminophen w/Cod 300-30 mg 1 TAB TABLET PO PRN (20:20)
[2017-01-23] MEDS: *HR* OxyCODONE ER (12 HR) 20 MG TABLET PO SCH (05:02)
[2017-01-23] MEDS: *HR* Heparin 5,000 UNIT/ML VIAL SQ SCH (05:02)
[2017-01-23 05:51] LABS: Basophils % 0.2 %; Eosinophils # 0.2 K/mcL (0.0-0.6); Eosinophils % 1.4 %; Hematocrit 33.8 % (35.3-44.9); Hemoglobin 10.4 g/dL (11.5-15.4); Immature Granulocytes % 0.7 % (0-4); Lymphocytes # 1.8 K/mcL (0.6-4.6); Lymphocytes % 12.5 %; Mean Corpuscular HGB Conc 30.8 g/dL (31.6-35.5); Mean Corpuscular Hemoglobin 25.6 pg (28.0-33.3); Mean Corpuscular Volume 83.3 fL (83.0-100.0); Mean Platelet Volume 10.9 fL (9.4-12.4); Neutrophils # 11.2 K/mcL (1.6-8.9); Platelet Count 166 K/mcL (140-400); Red Blood Count 4.06 M/mcL (3.82-4.97); Red Cell Distribution Width 16.2 % (11.5-14.5); Segmented Neutrophils % 78.2 %
[2017-01-23 06:03] LABS: Calcium 9.2 mg/dL (8.6-10.8); Potassium 3.9 mEq/L (3.5-4.5)
--- NOTE | 2017-01-23 09:51 | Nephrology Progress Note ---
Date of Encounter: 01/23/17 Time of Encounter: 09:46 - Assessment and Plan (1) End stage renal disease Current Visit: Yes Status: Chronic HD MWF. (2) Pneumonia Current Visit: No Status: Acute Continue antibiotics. Respiratory status improving. Qualifiers: Pneumonia type: due to unspecified organism Laterality: unspecified laterality Lung location: unspecified part of lung Qualified Code(s): J18.9 - Pneumonia, unspecified organism (3) Anemia Current Visit: Yes Status: Acute Monitor hemoglobin. No active bleeding noted. Qualifiers: Qualified Code(s): D64.9 - Anemia, unspecified (4) Morbid obesity with BMI of 45.0-49.9, adult Current Visit: Yes Status: Chronic outpatient managment. Subjective Principal diagnosis: ESBL infection Interval history: Patient seen. She states she feels the same way she did yesterday. She states her breathing is improving. Objective - Vital Signs Vital signs: Vital Signs Temp Pulse Resp BP Pulse Ox 01/23/17 06:43 98.3 F 72 18 111/64 98 01/23/17 03:45 98 F 72 18 101/52 96 01/22/17 23:49 97.8 F 75 16 121/61 94 01/22/17 19:27 98 F 81 18 100/67 95 01/22/17 15:42 98.2 F 98 16 116/64 98 01/22/17 13:09 98.6 F 20 131/78 01/22/17 12:30 131/78 01/22/17 12:15 139/86 01/22/17 12:00 145/88 01/22/17 11:45 126/83 01/22/17 11:30 114/56 01/22/17 11:15 128/54 01/22/17 11:00 123/54 01/22/17 10:45 135/50 01/22/17 10:30 129/50 01/22/17 10:15 135/50 01/22/17 10:00 138/49 Intake and Output 01/22/17 01/23/17 01/23/17 23:59 07:59 15:59 Intake Total 120 / 120 Balance 120 / 120 Intake: Oral 120 / 120 Other: Meal Dinner Percent of Meal Consumed 20% Weight 126.8 kg Blood Glucose* 100 96 Patient Weight 01/23/17 23:59 Weight 126.8 kg - General Appearance General appearance: Present: well-developed, well-nourished, obese EENT: Present: ATNC Neck: Present: supple Respiratory: Present: rhonchi Cardiology: Present: edema, regular rate Gastrointestinal: Present: obese Integumentary: Present: warm and dry Neurologic: Present: alert and oriented x3 Psychiatric: Present: mood/affect appropriate - Lab 01/23/17 05:37 01/23/17 05:37 Most recent lab results ABG pH 7.36 pH Units (7.32-7.45) 01/20/17 17:43 ABG pCO2 54 mmHg (35-45) H 01/20/17 17:43 ABG pO2 65 mmHg (85-104) L 01/20/17 17:43 ABG HCO3 30.5 mEQ/L (21-27) H 01/20/17 17:43 ABG O2 Saturation 92 % (95-98) L 01/20/17 17:43 Calcium 9.2 mg/dL (8.6-10.8) 01/23/17 05:37 Consult Discharge Plan - Plan Referrals: Tristen Quintana MD [Primary Care Provider] - (patient will follow up with F PCP) Prescriptions: Ertapenem [INVanz] 500 mg IVPB DAILY #14 vial
[2017-01-23] MEDS: Insulin LISPRO 300 UNITS/3 ML VIAL SQ SCH ×3 (09:53→17:30)
[2017-01-23] MEDS: amLODIPine 5 MG TABLET PO SCH (10:04)
[2017-01-23] MEDS: Sennosides/Docusate Sodium TABLET PO SCH (10:04)
[2017-01-23] MEDS: Furosemide 40 MG TABLET PO SCH (10:04)
[2017-01-23] MEDS: Calcium Acetate 667 MG CAPSULE PO SCH ×2 (10:04→13:07)
[2017-01-23] MEDS: Tiotropium 18 MCG inhalation IH SCH (10:05)
[2017-01-23] MEDS: Insulin DETEMIR 100 UNIT/ML X5UNITS SQ SCH (10:07)
[2017-01-23 16:13] VITALS: BP 121/66
== END 2017-01-23 17:55 ==
LOC: 2ANU → SUATTDRO 15:55
PROVIDERS: ADMIT Nurse Practitioner Family; ATTEND Internal Medicine

== ENCOUNTER 2017-02-04 20:41 | Observation (INO) ==
[2017-02-04] MEDS ORDERED: 0.9 % Sodium Chloride 1,000 ML IVC ONE (21:21)
--- NOTE | 2017-02-04 21:37 | Emergency Department Note ---
Disposition Clinical Impression: Pneumonia Qualifiers: Pneumonia type: due to unspecified organism Laterality: unspecified laterality Lung location: unspecified part of lung Qualified Code(s): J18.9 - Pneumonia, unspecified organism Altered mental status Qualifiers: Altered mental status type: unspecified Qualified Code(s): R41.82 - Altered mental status, unspecified Disposition: Admitted As Inpatient Condition: Good Time of Disposition: 00:35 Fall HPI - General Chief Complaint: ED Fall Stated Complaint: AMS/Fall Time Seen by Provider: 02/04/17 20:48 Source: patient, EMS Mode of arrival: EMS Limitations: altered mental status Nursing Notes Reviewed: Yes Vital Signs Reviewed: Yes - History of Present Illness HPI Narrative: 61 year old female with HX of baseline confusion comes from [facility] states that she was found in the bathroom on the floor about 2-3 hours ago and in unsure how long she was on the floor. Patient is unsure if it was a syncopal or mechanical fall. She is difficult to understands and last known well is unknown but was found 2-3 hours ago. She states that she has pain in her right hip and is having diffculty moving it secondary to pain. According to [facility] she always has confusion at baseline but is ambulatory with assistance however she is now complainig of headache and appears to be more confused than usual to the [facility] staff. Vijay denies fevers, chest pain , cough, abdominal pain, nausea, or vomitting. She is on the bed lying supine, wearing a mask but is unable to tell me why she has a mask on. - Related Data Home Medications Medication Instructions Recorded Confirmed Amitriptyline [Elavil] 100 mg PO HS 05/11/15 01/18/17 Clopidogrel [Plavix] 75 mg PO DAILY 05/11/15 01/18/17 Omeprazole [PriLOSEC] 20 mg PO BID 05/11/15 01/18/17 Rosuvastatin [Crestor] 40 mg PO HS 05/11/15 01/18/17 Sevelamer [Renvela] 800 mg PO TIDWM 05/11/15 01/18/17 Aripiprazole [Abilify] 10 mg PO HS 06/12/15 01/18/17 Colestipol HCl [Colestid] 1 gm PO BID 06/12/15 01/18/17 Carvedilol 12.5 mg PO BID 10/28/15 01/18/17 Amlodipine [Norvasc] 5 mg PO DAILY 06/09/16 01/18/17 Insulin Glargine,Hum.rec.anlog 60 unit SQ BID 06/09/16 01/18/17 [Lantus Solostar] Calcium Acetate [Phos-LO] 667 mg PO TIDWM 09/06/16 01/18/17 Furosemide [Lasix] 80 mg PO BID 09/06/16 01/18/17 Insulin LISPRO [Humalog] 20 unit SQ TIDWM PRN 09/06/16 01/18/17 Metolazone [Zaroxolyn] 2.5 mg PO MOWEFR 09/06/16 01/18/17 Albuterol Sulfate [Ventolin Hfa] 2 puff IH Q4H PRN 12/29/16 01/18/17 Ondansetron ODT [Zofran ODT] 4 mg SL Q8HR PRN 12/29/16 01/18/17 Oxycodone HCl [Oxycontin] 60 mg PO Q12H 12/31/16 01/18/17 Tiotropium [Spiriva] 1 puff IH DAILY 01/12/17 01/18/17 Previous Rx's Medication Instructions Recorded Gabapentin [Neurontin] 200 mg PO TID 30 Days 06/18/16 OxyCODONE/APAP 10/325 [Percocet 1 each PO Q6H PRN #10 tablet 11/19/16 10/325 MG] Acetaminophen w/Cod 300-30 mg 2 tab PO Q4HR PRN #30 tablet 01/16/17 [Tylenol w/Codeine #3] Benzonatate [Tessalon] 200 mg PO TID PRN #40 capsule 01/16/17 Guaifenesin [Guaifenesin ER] 1,200 mg PO BID #10 tab.er.12h 01/16/17 Ertapenem [INVanz] 500 mg IVPB DAILY #14 vial 01/22/17 GuaiFENesin/Dextromethorphan 10 ml PO Q6HR udc 01/22/17 [Robitussin/Dm] Sennosides/Docusate Sodium [Senna 1 each PO DAILY tablet 01/22/17 Plus] OxyCODONE ER (12 HR) [OxyCONTIN] 20 mg PO Q12HR #14 tab.er.12h 01/23/17 Oxycodone HCl/Acetaminophen 1 each PO Q8H #20 tablet 01/23/17 [Percocet 5-325 mg Tablet] Allergies Allergy/AdvReac Type Severity Reaction Status Date / Time No Known Allergies Allergy Verified 01/12/17 11:29 Limitations: ROS unobtainable due to patients medical condition Musculoskeletal: Reports: other (right hip pain) Fall PMH - Past Medical History Medical history: Reports: arthritis, atrial fibrillation, CHF, COPD, coronary artery disease, CVA, DVT, diabetes, dialysis, fibromyalgia, GERD, hyperlipidemia , hypertension, kidney stones, migraine, myocardial infarction, osteoporosis, peripheral artery disease, renal disease, other Surgical history: Reports: angioplasty/stent, appendectomy, cholecystectomy, coronary bypass (CABG), hysterectomy, knee replacement, other, IVC filter Psychiatric history: Reports: anxiety, depression [employer] 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: 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 - Social History Smoking Status: Former smoker Alcohol use: Reports: none Drug use: Reports: none Physical Exam - General Limitations: altered mental status General appearance: alert, obese - Head Head exam: atraumatic, normocephalic, normal inspection - Eye Eye exam: Present: normal appearance, PERRL, EOMI - Expanded Eye Exam Pupils: Left: reactive - ENT ENT exam: normal exam, normal oropharynx, mucous membranes moist - Expanded ENT Exam External ear exam: Present: normal external inspection Mouth exam: Present: normal external inspection Teeth exam: Present: normal inspection Throat exam: Present: normal inspection - Neck Neck exam: Present: normal inspection, full ROM, trachea midline - Chest Chest inspection: Present: normal inspection, symmetric chest wall rise - Respiratory Respiratory exam: Present: normal lung sounds bilaterally - Cardiovascular Cardiovascular exam: Present: regular rate, normal rhythm, normal heart sounds - Abdominal Exam Abdominal exam: Present: soft, Non-Tender. Absent: tenderness, distention, guarding, rebound, rigidity - Extremities Exam Extremities exam: Present: normal inspection, full ROM. Absent: tenderness, pedal edema - Expanded Upper Extremity Exam Shoulder exam: Present: normal inspection, full ROM Arm exam: Present: normal inspection, full ROM Elbow exam: Present: normal inspection, full ROM Forearm/Wrist exam: Present: normal inspection, full ROM Hand exam: Present: normal inspection, full ROM Vascular exam: Normal: capillary refill, radial pulse - Expanded Lower Extremity Exam Hip/Pelvis exam: Present: normal inspection, tenderness (right hip). Absent: full ROM (right hip) Upper leg exam: Present: normal inspection, full ROM Knee exam: Present: normal inspection, full ROM Lower leg exam: Present: normal inspection, full ROM Ankle exam: Present: normal inspection, full ROM Foot/toe exam: Present: normal inspection, full ROM Neurovascular/Tendon exam: Absent: motor deficit, sensory deficit, tendon deficit - Back Exam Back exam: Present: normal inspection, full ROM. Absent: tenderness - Neurological Exam Neurological exam: Present: alert, oriented X3 - Expanded Neurological Exam Patient oriented to: Present: person, place, time Coma Scale Eye Opening: Spontaneous Coma Scale Motor Response: Obeys Commands Coma Scale Verbal Response: Oriented Coma Scale Total: 15 - Psychiatric Psychiatric exam: Present: normal affect, normal mood - Skin Skin exam: Present: warm, dry, intact, normal color Course Course Narrative: we will do an altered mental status workup and image the right hip with HCT for further evaluation. - Consultations Consultation #1: discussed case with Dr. olson and he accepts patinet for admission Time: 00:34 Vital Signs Temperature 98.0 F 02/04/17 20:45 Pulse Rate 89 02/04/17 20:45 Respiratory Rate 16 02/04/17 20:45 Blood Pressure 136/72 02/04/17 20:45 O2 Sat by Pulse Oximetry 100 02/04/17 20:45 Temperature 98.0 F 02/04/17 20:45 Pulse Rate 86 02/05/17 00:15 Respiratory Rate 20 02/05/17 00:15 Blood Pressure 140/93 02/05/17 00:15 O2 Sat by Pulse Oximetry 100 02/05/17 00:15 Oxygen Delivery Oxygen Delivery Nasal Cannula Fall - Lab Data Result diagrams: 02/04/17 23:15 02/04/17 22:03 Lab Results 02/04/17 02/04/17 02/04/17 Range/Units 22:03 23:15 23:15 WBC 8.5 (4.3-11.1) K/mcL RBC 4.13 (3.82-4.97) M/mcL Hgb 10.5 L (11.5-15.4) g/dL Hct 35.2 L (35.3-44.9) % MCV 85.2 (83.0-100.0) fL MCH 25.4 L (28.0-33.3) pg MCHC 29.8 L (31.6-35.5) g/dL RDW 17.3 H (11.5-14.5) % Plt Count 201 (140-400) K/mcL MPV 11.2 (9.4-12.4) fL Immature Gran % 0.8 (0-4) % Seg Neutrophils % 61.3 % Lymphocytes % 23.7 % Monocytes % 10.1 % Eosinophils % 3.2 % Basophils % 0.9 % Neutrophils # 5.2 (1.6-8.9) K/mcL Lymphocytes # 2.0 (0.6-4.6) K/mcL Monocytes # 0.9 (0.0-1.3) K/mcL Eosinophils # 0.3 (0.0-0.6) K/mcL Basophils # 0.1 (0.0-0.2) K/mcL PT 12.3 H (9.4-12.1) Seconds INR 1.1 APTT 34.2 (26.0-36.0) Seconds Sodium 138 (136-145) mEq/L Potassium 4.3 (3.5-4.5) mEq/L Chloride 102 (98-109) mEq/L Carbon Dioxide 22 (19-29) mEq/L BUN 26 H (7-20) mg/dL Creatinine 4.06 H (0.57-1.11) mg/dL Est GFR ( Amer) 14 L (> 60) Est GFR (Non-Af Amer) 11 L (> 60) BUN/Creatinine Ratio 6 (6-26) Glucose 115 H (70-99) mg/dL Calculated Osmolality 292 (280-300) Lactic Acid (0.5-2.2) mmol/L Calcium 9.5 (8.6-10.8) mg/dL Total Bilirubin 0.5 (0.2-1.2) mg/dL Direct Bilirubin 0.2 (0.0-0.5) mg/dL Indirect Bilirubin 0.3 (0.0-1.2) mg/dL AST 23 (5-34) Units/L ALT 16 (0-55) Units/L Alkaline Phosphatase 132 H (38-126) Units/L Ammonia (18-72) mcmol/L Troponin I (0-0.03) ng/mL Serum Total Protein 6.8 (6.0-8.3) g/dL Albumin 2.8 L (3.5-5.0) g/dL Globulin 4.0 H (2.4-3.5) g/dL Albumin/Globulin Ratio 0.7 L (1.1-2.2) Urine Color (Yellow) Urine Clarity (Clear) Urine pH (5.0-8.0) pH Units Ur Specific [place] (1.010-1.025) Urine Protein (Neg-Trace) mg/dL Urine Glucose (UA) (Normal) mg/dL Urine Ketones (Negative) mg/dL Urine Blood (Negative) Urine Nitrite (Negative) Urine Bilirubin (Negative) Urine Urobilinogen (Normal) mg/dL Ur Leukocyte Esterase (Negative) Urine Microscopic RBC (0-3) per hpf Urine Microscopic WBC (0-3) per hpf Ur Squamous Epith Cells (None-Few) per lpf Urine Bacteria (None-Few) per hpf Hyaline Casts Urine Yeast (None Seen) per hpf Ur Culture Indicated? (NO) Urine Opiates Screen (Tapnnr=904) ng/mL Ur Barbiturates Screen (Ejnxxh=174) ng/mL Ur Phencyclidine Scrn (Cutoff=25) ng/mL Ur Amphetamines Screen (Mifavt=6002) ng/mL U Benzodiazepines Scrn (Qwirii=478) ng/mL Urine Cocaine Screen (Cutoff= 300) ng/mL U Marijuana (THC) Screen (Cutoff = 50) ng/mL Ethyl Alcohol < 10 (0-10) mg/dL 02/04/17 02/04/17 02/04/17 Range/Units 23:15 23:15 23:15 WBC (4.3-11.1) K/mcL RBC (3.82-4.97) M/mcL Hgb (11.5-15.4) g/dL Hct (35.3-44.9) % MCV (83.0-100.0) fL MCH (28.0-33.3) pg MCHC (31.6-35.5) g/dL RDW (11.5-14.5) % Plt Count (140-400) K/mcL MPV (9.4-12.4) fL Immature Gran % (0-4) % Seg Neutrophils % % Lymphocytes % % Monocytes % % Eosinophils % % Basophils % % Neutrophils # (1.6-8.9) K/mcL Lymphocytes # (0.6-4.6) K/mcL Monocytes # (0.0-1.3) K/mcL Eosinophils # (0.0-0.6) K/mcL Basophils # (0.0-0.2) K/mcL PT (9.4-12.1) Seconds INR APTT (26.0-36.0) Seconds Sodium (136-145) mEq/L Potassium (3.5-4.5) mEq/L Chloride (98-109) mEq/L Carbon Dioxide (19-29) mEq/L BUN (7-20) mg/dL Creatinine (0.57-1.11) mg/dL Est GFR ( Amer) (> 60) Est GFR (Non-Af Amer) (> 60) BUN/Creatinine Ratio (6-26) Glucose (70-99) mg/dL Calculated Osmolality (280-300) Lactic Acid 0.9 (0.5-2.2) mmol/L Calcium (8.6-10.8) mg/dL Total Bilirubin (0.2-1.2) mg/dL Direct Bilirubin (0.0-0.5) mg/dL Indirect Bilirubin (0.0-1.2) mg/dL AST (5-34) Units/L ALT (0-55) Units/L Alkaline Phosphatase (38-126) Units/L Ammonia 10 L (18-72) mcmol/L Troponin I 0.03 (0-0.03) ng/mL Serum Total Protein (6.0-8.3) g/dL Albumin (3.5-5.0) g/dL Globulin (2.4-3.5) g/dL Albumin/Globulin Ratio (1.1-2.2) Urine Color (Yellow) Urine Clarity (Clear) Urine pH (5.0-8.0) pH Units Ur Specific [place] (1.010-1.025) Urine Protein (Neg-Trace) mg/dL Urine Glucose (UA) (Normal) mg/dL Urine Ketones (Negative) mg/dL Urine Blood (Negative) Urine Nitrite (Negative) Urine Bilirubin (Negative) Urine Urobilinogen (Normal) mg/dL Ur Leukocyte Esterase (Negative) Urine Microscopic RBC (0-3) per hpf Urine Microscopic WBC (0-3) per hpf Ur Squamous Epith Cells (None-Few) per lpf Urine Bacteria (None-Few) per hpf Hyaline Casts Urine Yeast (None Seen) per hpf Ur Culture Indicated? (NO) Urine Opiates Screen (Cuiyun=678) ng/mL Ur Barbiturates Screen (Eqizcc=074) ng/mL Ur Phencyclidine Scrn (Cutoff=25) ng/mL Ur Amphetamines Screen (Mijeti=6176) ng/mL U Benzodiazepines Scrn (Pruptp=422) ng/mL Urine Cocaine Screen (Cutoff= 300) ng/mL U Marijuana (THC) Screen (Cutoff = 50) ng/mL Ethyl Alcohol (0-10) mg/dL 02/05/17 02/05/17 Range/Units 00:15 00:15 WBC (4.3-11.1) K/mcL RBC (3.82-4.97) M/mcL Hgb (11.5-15.4) g/dL Hct (35.3-44.9) % MCV (83.0-100.0) fL MCH (28.0-33.3) pg MCHC (31.6-35.5) g/dL RDW (11.5-14.5) % Plt Count (140-400) K/mcL MPV (9.4-12.4) fL Immature Gran % (0-4) % Seg Neutrophils % % Lymphocytes % % Monocytes % % Eosinophils % % Basophils % % Neutrophils # (1.6-8.9) K/mcL Lymphocytes # (0.6-4.6) K/mcL Monocytes # (0.0-1.3) K/mcL Eosinophils # (0.0-0.6) K/mcL Basophils # (0.0-0.2) K/mcL PT (9.4-12.1) Seconds INR APTT (26.0-36.0) Seconds Sodium (136-145) mEq/L Potassium (3.5-4.5) mEq/L Chloride (98-109) mEq/L Carbon Dioxide (19-29) mEq/L BUN (7-20) mg/dL Creatinine (0.57-1.11) mg/dL Est GFR ( Amer) (> 60) Est GFR (Non-Af Amer) (> 60) BUN/Creatinine Ratio (6-26) Glucose (70-99) mg/dL Calculated Osmolality (280-300) Lactic Acid (0.5-2.2) mmol/L Calcium (8.6-10.8) mg/dL Total Bilirubin (0.2-1.2) mg/dL Direct Bilirubin (0.0-0.5) mg/dL Indirect Bilirubin (0.0-1.2) mg/dL AST (5-34) Units/L ALT (0-55) Units/L Alkaline Phosphatase (38-126) Units/L Ammonia (18-72) mcmol/L Troponin I (0-0.03) ng/mL Serum Total Protein (6.0-8.3) g/dL Albumin (3.5-5.0) g/dL Globulin (2.4-3.5) g/dL Albumin/Globulin Ratio (1.1-2.2) Urine Color Dark Yellow (Yellow) Urine Clarity Turbid A (Clear) Urine pH 5.0 (5.0-8.0) pH Units Ur Specific [place] 1.023 (1.010-1.025) Urine Protein >=300 H (Neg-Trace) mg/dL Urine Glucose (UA) Normal (Normal) mg/dL Urine Ketones Trace H (Negative) mg/dL Urine Blood Large H (Negative) Urine Nitrite Negative (Negative) Urine Bilirubin Large H (Negative) Urine Urobilinogen Normal (Normal) mg/dL Ur Leukocyte Esterase Large H (Negative) Urine Microscopic RBC 30-50 H (0-3) per hpf Urine Microscopic WBC TNTC H (0-3) per hpf Ur Squamous Epith Cells Many H (None-Few) per lpf Urine Bacteria Many H (None-Few) per hpf Hyaline Casts Test Not Performed Urine Yeast Many H (None Seen) per hpf Ur Culture Indicated? YES A (NO) Urine Opiates Screen Positive H (Vxygzt=913) ng/mL Ur Barbiturates Screen Negative (Xucrec=211) ng/mL Ur Phencyclidine Scrn Negative (Cutoff=25) ng/mL Ur Amphetamines Screen Negative (Uhiznn=1909) ng/mL U Benzodiazepines Scrn Negative (Ffupzm=124) ng/mL Urine Cocaine Screen Negative (Cutoff= 300) ng/mL U Marijuana (THC) Screen Negative (Cutoff = 50) ng/mL Ethyl Alcohol (0-10) mg/dL - EKG Data EKG attestation: Yes I reviewed and interpreted this EKG. EKG results narrative: atrial flutter with rate of 87 and PVCS. NO STEMI. normal intervals. NSR on 11/15. 2131 Attestation Statement - Attestation Attestation: I, Rommel Mendenhall MD, personally evaluated this patient and discussed their management with the resident physician. I reviewed the resident's note and agree with the documented findings, medical decision making, and plan of care. 61-year-old female presents to the emergency department from a local nursing facility for evaluation after an unwitnessed fall in the bathroom. This occurred several hours prior to arrival and apparently [facility] reports that she has altered mental status from her baseline. She is normally confused but they report confusion is worse and speech is slurred. On examination patient is a well-developed obese elderly female. On my examination she responds to physical stimuli but not verbal. There is no cyanosis or diaphoresis. Pupils equally round and reactive. Neck is supple with no obvious tenderness. Breath sounds equal bilaterally. Heart regular. Abdomen soft with normal bowel sounds. Head CT negative. CT of the abdomen and pelvis showed no pelvic fracture and no intra-abdominal abnormality. There was noted to be some bibasilar patchy airspace disease. Labs reviewed. The hospitalist, Dr. Olson, was consulted and accepted admission of the patient.
[2017-02-04 22:26] LABS: Alanine Aminotransferase 16 Units/L (0-55); Albumin 2.8 g/dL (3.5-5.0); Albumin/Globulin Ratio 0.7 (1.1-2.2); Alkaline Phosphatase 132 Units/L (38-126); Aspartate Amino Transferase 23 Units/L (5-34); BUN/Creatinine Ratio 6 (6-26); Bilirubin,Direct 0.2 mg/dL (0.0-0.5); Bilirubin,Indirect 0.3 mg/dL (0.0-1.2); Bilirubin,Total 0.5 mg/dL (0.2-1.2); Blood Urea Nitrogen 26 mg/dL (7-20); Calcium 9.5 mg/dL (8.6-10.8); Carbon Dioxide 22 mEq/L (19-29); Chloride 102 mEq/L (98-109); Ethanol < 10 mg/dL (0-10); Glucose 115 mg/dL (70-99); Osmolality,Calculated 292 (280-300); Potassium 4.3 mEq/L (3.5-4.5); Sodium 138 mEq/L (136-145); Total Protein 6.8 g/dL (6.0-8.3); eGFR For African Americans 14 (> 60); eGFR For Non-African Americans 11 (> 60)
[2017-02-04] MEDS ORDERED: Vancomycin 1,000 MG in D5% in Water 250 ML IVPB ONE (23:09)
[2017-02-04] MEDS ORDERED: Piperacillin/Tazobactam 3.375 GM in D5% in Water (Mini-Bag+) 100 ML IVPB ONE (23:09)
[2017-02-04] MEDS ORDERED: Levofloxacin 750 MG/150 ML 750 MG/150 ML BAG IVPB ONE (23:09)
[2017-02-04 23:25] LABS: Basophils # 0.1 K/mcL (0.0-0.2); Basophils % 0.9 %; Eosinophils # 0.3 K/mcL (0.0-0.6); Eosinophils % 3.2 %; Hematocrit 35.2 % (35.3-44.9); Hemoglobin 10.5 g/dL (11.5-15.4); Immature Granulocytes % 0.8 % (0-4); Lymphocytes % 23.7 %; Mean Corpuscular HGB Conc 29.8 g/dL (31.6-35.5); Mean Corpuscular Hemoglobin 25.4 pg (28.0-33.3); Mean Corpuscular Volume 85.2 fL (83.0-100.0); Mean Platelet Volume 11.2 fL (9.4-12.4); Monocytes # 0.9 K/mcL (0.0-1.3); Monocytes % 10.1 %; Neutrophils # 5.2 K/mcL (1.6-8.9); Platelet Count 201 K/mcL (140-400); Red Blood Count 4.13 M/mcL (3.82-4.97); Red Cell Distribution Width 17.3 % (11.5-14.5); Segmented Neutrophils % 61.3 %
[2017-02-04 23:38] LABS: INR 1.1; Prothrombin Time 12.3 Seconds (9.4-12.1)
[2017-02-04 23:41] LABS: Activated Partial Thrombo Time 34.2 Seconds (26.0-36.0)
[2017-02-05 00:30] LABS: Bilirubin,Urine Large (Negative); Blood,Urine Large (Negative); Clarity,Urine Turbid (Clear); Glucose,Urine (UA) Normal (Normal); Ketones,Urine Trace mg/dL (Negative); Leukocyte Esterase,Urine Large (Negative); Nitrite,Urine Negative (Negative); Protein,Urine >=300 mg/dL (Neg-Trace); Specific Gravity,Urine 1.023 (1.010-1.025); Urobilinogen,Urine Normal (Normal)
[2017-02-05 00:32] LABS: Squamous Epithelial Cell,Urine Many per lpf (None-Few); WBC,Urine TNTC per hpf (0-3)
[2017-02-05 00:34] LABS: Color,Urine Dark Yellow (Yellow)
[2017-02-05 00:42] LABS: Amphetamine Screen,Urine Negative ng/mL (Cutoff=1000); Barbiturate Screen,Urine Negative ng/mL (Cutoff=200); Benzodiazepines Screen,Urine Negative ng/mL (Cutoff=200); Cannabinoid Screen,Urine Negative ng/mL (Cutoff = 50); Cocaine Screen,Urine Negative ng/mL (Cutoff= 300); Opiate Screen,Urine Positive ng/mL (Cutoff=300); Phencyclidine Screen,Urine Negative ng/mL (Cutoff=25); Yeast,Urine Many per hpf (None Seen)
[2017-02-05 00:43] LABS: Bacteria,Urine Many per hpf (None-Few); RBC,Urine 30-50 per hpf (0-3)
[2017-02-05] MEDS ORDERED: Naloxone 0.4 MG/ML INJ IVP PRN (01:34)
[2017-02-05] MEDS ORDERED: Acetaminophen 325 MG TABLET PO PRN (01:34)
--- NOTE | 2017-02-05 01:39 | Internal Med History&Physical ---
<Deepti Forte - Last Filed: 02/05/17 03:59> Date of Encounter: 02/05/17 Time of Encounter: 01:50 Assessment and Plan (1) Catheter-associated urinary tract infection Current visit: Yes Status: Suspected - UA found many protein, blood, WBC and bacteria. Urine culture pending. - Suspected catheter-associated UTI given patient presented with pereira, which patient cannot tell how long she was on. - Will attempt to obtain more information from [facility] in the morning. - Will remove the old pereira. - Will obtain retroperitoneal US for further evaluation such as possible pyelonephritis or obstruction. - Continue IV Zosyn. Will de-escalate later based on clinical change and/or culture result. Qualifiers: Indwelling urinary catheter type: indwelling urethral catheter Encounter type: initial encounter Qualified Code(s): T83.511A - Infection and inflammatory reaction due to indwelling urethral catheter, initial encounter; N39.0 - Urinary tract infection, site not specified (2) Fall Current visit: No Status: Acute - Patient was found down on the floor at [facility] for unknown duration of time. - Unknown causes of fall at this time given patient cannot provide detail about the fall at this time. - CT head found no acute intracranial abnormality. - Suspect mechanical fall from not using assisting device given PT evaluation at prior hospitalization recommended walker use. - Will attempt to contact [facility] to obtain more information. - PT/OT consult to evaluate and treat. Qualifiers: Encounter type: initial encounter Qualified Code(s): W19.XXXA - Unspecified fall, initial encounter (3) CHF (congestive heart failure) Current visit: No Status: Chronic - Last echo on 12/18/15 showed LVEF 55-60% with mild LV diastolic dysfunction. - CXR suggestive of cardiomegaly and early pulmonary interstitial edema. Feel pneumonia unlikely given lack of leukocytosis, white sputum production and recent IV ertapenem therapy. Will obtain CT chest for further evaluation. - Continue home dose diuresis. - Patient will likely get HD today. - Strict I&O and daily weight. Qualifiers: Congestive heart failure type: diastolic Congestive heart failure chronicity: chronic Qualified Code(s): I50.32 - Chronic diastolic (congestive ) heart failure (4) COPD (chronic obstructive pulmonary disease) Current visit: No Status: Chronic - Bronchodilators scheduled and prn. - Supplemental oxygen. Qualifiers: COPD type: emphysema Emphysema type: unspecified Qualified Code(s): J43.9 - Emphysema, unspecified (5) ESRD (end stage renal disease) on dialysis Current visit: No Status: Chronic - On HD MWF with last one on Wednesday per patient. Patient of Dr. Hernandez. - Will consult nephrology for possible HD today. (6) CAD (coronary artery disease) Current visit: No Status: Chronic - S/p CABG 2001 & multiple LHC with last one on 10/29/16 found moderate CAD. - Continue Plavix, beta-vera and statin. Qualifiers: Coronary Disease-Associated Artery/Lesion type: bypass graft [place] vs. transplanted heart: [place] heart Associated angina: without angina Qualified Code(s): I25.810 - Atherosclerosis of coronary artery bypass graft(s) without angina pectoris (7) Diabetes Current visit: No Status: Chronic - Basal and sliding scale insulin with frequent glucose check. Qualifiers: Diabetes mellitus type: type 2 Diabetes mellitus complication status: with kidney complications Diabetes mellitus complication detail: with chronic kidney disease Diabetes mellitus long-term insulin use: with long-term use Chronic kidney disease stage: on chronic dialysis Qualified Code(s): E11.22 - Type 2 diabetes mellitus with diabetic chronic kidney disease; N18.6 - End stage renal disease; Z79.4 - rn long term care (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 of insulin; Z99.2 - Dependence on renal dialysis (8) HTN (hypertension) Current visit: No Status: Chronic - Continue home dose antihypertensive regimen. Qualifiers: Hypertension type: essential hypertension Qualified Code(s): I10 - Essential (primary) hypertension (9) DVT prophylaxis Current visit: No Status: Acute - SQ heparin. Internal Medicine - H&P: HPI Chief complaint: S/p fall, worsening shortness of breath and cough Admitted From: Emergency Dept Plans for Post Hospital Care: Home History of present illness: Ms. Riley is a 61 year old female with PMH of diastolic CHF (last echo on showed LVEF 55-60% with mild LV diastolic dysfunction), CAD s/p CABG 2001 & multiple LHC (last one on 10/29/16 found moderate CAD), COPD (on 2-3L continuous oxygen), CVA, PVD, type 2 DM, HLD, HTN, ESRD on dialysis MWF, DVT, fibromyalgia , GERD, nephrolithiasis, migraine and osteoporosis. Patient was sent from [facility] after being found down on the floor for unknown duration of time. Patient is a poor historian and cannot recall what happened during that event. Patient is not sure if she lost consciousness or not. She admits having occasional dizziness and palpitation. Patient denies chest pain/ discomfort, vision change, hearing change, new numbness/tingling or focal weakness. Patient reports chronic dysuria but states it's worse in past 3-4 months. Patient has pereira catheter in place but does not know how long she has it. Patient reports having worsening cough and shortness of breath, especially on exertion but when asking how long those symptoms got worse she answered in past 2-3 hours. Patient reports white sputum production and denies hemoptysis. Patient also has bilateral lower extremity edema but cannot tell me if this is worse than before. Patient reports weight gain of 20 lbs over past few months. Patient was hospitalized recently (01/17 - 01/22) for pneumonia from ESBL(+) Proteus mirabilis and patient was discharged to [facility] with 2 weeks of IV ertapenem, which patient reports she did finish the therapy and feels better from that. Patient reports being compliant to all her medications but says no when I asked if she gets breathing treatment at [facility]. Patient reports her last dialysis was two days ago (Wednesday) and she does not miss dialysis. Patient is DNR-CCA. Past Med Surg Social Fam HX - Past Medical History Medical history: arthritis, atrial fibrillation, CHF, COPD, coronary artery disease, CVA, DVT, diabetes, dialysis, fibromyalgia, GERD, hyperlipidemia, hypertension, kidney stones, migraine, myocardial infarction, osteoporosis, peripheral artery disease, renal disease, other Psychiatric history: anxiety, depression - Past Surgical History Surgical History: angioplasty/stent, appendectomy, cholecystectomy, coronary bypass (CABG), hysterectomy, knee replacement, other, IVC filter - Social History Smoking Status: Former smoker Smokeless Tobacco Status: No Alcohol use: none Drug use: none - Family History Father Living Status: Hx Family Cardiac Disorders: Yes Hx Family Endocrine Disorder: Yes Mother Living Status: Still Living Hx Family Respiratory Disorders: Yes (end stage copd) Internal Medicine - H&P: Meds Amitriptyline [Elavil] 100 mg PO HS 05/11/15 [History] Clopidogrel [Plavix] 75 mg PO DAILY 05/11/15 [History] Omeprazole [PriLOSEC] 20 mg PO BID 05/11/15 [History] Rosuvastatin [Crestor] 40 mg PO HS 05/11/15 [History] Sevelamer [Renvela] 800 mg PO TIDWM 05/11/15 [History] Aripiprazole [Abilify] 10 mg PO HS 06/12/15 [History] Colestipol HCl [Colestid] 1 gm PO BID 06/12/15 [History] Carvedilol 12.5 mg PO BID 10/28/15 [History] Amlodipine [Norvasc] 5 mg PO DAILY 06/09/16 [History] Insulin Glargine,Hum.rec.anlog [Lantus Solostar] 60 unit SQ BID 06/09/16 [ History] Gabapentin [Neurontin] 200 mg PO TID 30 Days 06/18/16 [Rx] Calcium Acetate [Phos-LO] 667 mg PO TIDWM 09/06/16 [History] Furosemide [Lasix] 80 mg PO BID 09/06/16 [History] Metolazone [Zaroxolyn] 2.5 mg PO MOWEFR 09/06/16 [History] Albuterol Sulfate [Ventolin Hfa] 2 puff IH Q4H PRN 12/29/16 [History] Ondansetron ODT [Zofran ODT] 4 mg SL Q8HR PRN 12/29/16 [History] Tiotropium [Spiriva] 1 puff IH DAILY 01/12/17 [History] Benzonatate [Tessalon] 200 mg PO TID PRN #40 capsule 01/16/17 [Rx] Ertapenem [INVanz] 500 mg IVPB DAILY #14 vial 01/22/17 [Rx] GuaiFENesin/Dextromethorphan [Robitussin/Dm] 10 ml PO Q6HR udc 01/22/17 [Rx] Sennosides/Docusate Sodium [Senna Plus] 1 each PO DAILY tablet 01/22/17 [Rx] OxyCODONE ER (12 HR) [OxyCONTIN] 20 mg PO Q12HR #14 tab.er.12h 01/23/17 [Rx] Oxycodone HCl/Acetaminophen [Percocet 5-325 mg Tablet] 1 each PO Q8H #20 tablet 01/23/17 [Rx] Insulin LISPRO [HumaLOG] 0 - 16 units SQ TIDAC 02/05/17 [History] Insulin LISPRO [HumaLOG] 0 - 9 unit SQ HS 02/05/17 [History] Allergies No Known Allergies Allergy (Verified 01/12/17 11:29) All Systems PM: A 10-system review of systems was performed and is negative for pertinent findings except as documented above in the HPI. - Constitutional Constitutional: chills (Occasional), fever(s) (Occasional), weight gain (20 lbs over past few months.) - EENT Eyes: no change in vision Ears: no decreased hearing Nose, mouth and throat: dysphagia (Occasional) - Cardiovascular Cardiovascular ROS IM: edema, lightheadedness, palpitations, no chest pain - Respiratory Respiratory: as per HPI, cough, dyspnea, wheezing, change in phlegm color ( White sputum), no hemoptysis - Gastrointestinal Gastrointestinal: nausea, vomiting (Food debris), no abdominal pain, no diarrhea , no hematochezia, no melena - Genitourinary Genitourinary: as per HPI, dysuria, no hematuria - Musculoskeletal Musculoskeletal ROS IM: back pain - Integumentary Integumentary IM: no pruritus, no rash - Neurological Neurological ROS: focal weakness, numbness (Chronic numbness/tingling of bilateral hands and feet.) - Hematologic/Lymphatic Hematologic/Lymphatic: easy bruising, no easy bleeding - Constitutional Vitals: Temp Pulse Resp BP Pulse Ox 98.0 F 86 20 109/72 100 02/04/17 20:45 02/05/17 00:15 02/05/17 01:19 02/05/17 01:19 02/05/17 00:15 General appearance: Present: cooperative, A&O X 2 (Patient is alert to name, part of place (hospital) and part of time (year and month)), morbidly obese, no acute distress - Head Head exam: Present: atraumatic, normocephalic - Eye Eye exam: Present: EOMI, PERRL, conjuntiva pink, sclera anicteric - Neck Neck exam general surgery: Present: supple, trachea midline. Absent: lymphadenopathy - Respiratory Respiratory exam: Present: rales (few bibasilar crackles.). Absent: accessory muscle use, rhonchi, wheezes - Cardiovascular Cardiovascular exam: Present: RRR, +S1, +S2. Absent: diastolic murmur, gallop, rubs, systolic murmur - GI/Abdominal GI/Abdominal exam: Present: normal bowel sounds, soft, no peritoneal signs. Absent: tenderness - Extremities Exam Extremities exam: Present: warm, radial pulses palpable and symetrical. Absent : calf tenderness, cyanotic Additional comments: Moderate bilateral LE non-pitting edema, mostly around thighs. Venous stasis appearance of bilateral lower legs noted. - Neurological Exam Neurological exam: Present: CN II-XII intact, oriented X3, no focal deficits. Absent: pronater drift, facial droop, speech deficit - Skin Skin exam: Present: dry, intact, warm Internal Med - H&P Results - Labs CBC & Chem 7: 02/04/17 23:15 02/04/17 22:03 Labs: Short CBC 02/04/17 Range/Units 23:15 WBC 8.5 (4.3-11.1) K/mcL Hgb 10.5 L (11.5-15.4) g/dL Hct 35.2 L (35.3-44.9) % Plt Count 201 (140-400) K/mcL Neutrophils # 5.2 (1.6-8.9) K/mcL BMP 02/04/17 Range/Units 22:03 Sodium 138 (136-145) mEq/L Potassium 4.3 (3.5-4.5) mEq/L Chloride 102 (98-109) mEq/L Carbon Dioxide 22 (19-29) mEq/L BUN 26 H (7-20) mg/dL Creatinine 4.06 H (0.57-1.11) mg/dL Glucose 115 H (70-99) mg/dL Calcium 9.5 (8.6-10.8) mg/dL Cardiac Enzymes 02/04/17 Range/Units 23:15 Troponin I 0.03 (0-0.03) ng/mL Liver Function 02/04/17 Range/Units 22:03 Total Bilirubin 0.5 (0.2-1.2) mg/dL Direct Bilirubin 0.2 (0.0-0.5) mg/dL AST 23 (5-34) Units/L ALT 16 (0-55) Units/L Alkaline Phosphatase 132 H (38-126) Units/L Albumin 2.8 L (3.5-5.0) g/dL Urine 02/05/17 Range/Units 00:15 Urine Color Dark Yellow (Yellow) Urine Clarity Turbid A (Clear) Urine pH 5.0 (5.0-8.0) pH Units Ur Specific [place] 1.023 (1.010-1.025) Urine Protein >=300 H (Neg-Trace) mg/dL Urine Glucose (UA) Normal (Normal) mg/dL - EKG Data -: EKG Interpreted by Myself EKG shows normal: sinus rhythm Rate: normal - EKG Data Prior EKG available for review: yes When compared to previous EKG: there is no significant change EKG comments: 02/05/17 02:49 HR 87, QRS 89, normal sinus rhythm, no significant ischemic change compared to prior EKG in 2008. - Impressions Impressions Chest X-Ray 02/04/17 21:21 IMPRESSION: 1. Findings are suggestive of cardiomegaly and early pulmonary interstitial edema. Underlying pneumonia is not excluded. D/ / 02/04/2017 23:05:41 Fidel Fitzgerald MD / rena Interpreting Provider: Fidel Fitzgerald MD Head CT 02/04/17 21:22 IMPRESSION: No acute intracranial abnormality. Chronic small vessel ischemic disease. D/ / 02/04/2017 22:53:30 Fidel Fitzgerald MD / rena Interpreting Provider: Fidel Fitzgerald MD Abdomen/Pelvis CT 02/04/17 21:32 IMPRESSION: No acute traumatic abnormality in the abdomen or pelvis. Unchanged compression deformity at L2. Patchy bibasilar airspace disease, improved from prior chest CT. Several hypodense lesions within both kidneys, indeterminate. Renal ultrasound is recommended for further evaluation. D/ / 02/04/2017 22:58:55 Dennis Parra MD / rena Interpreting Provider: Dennis Parra MD <Ayden Mayen - Last Filed: 02/10/17 02:40> Date of Encounter: 02/05/17 Internal Medicine - H&P: HPI Admitted From: Emergency Dept Plans for Post Hospital Care: Transfer Detention Facility History of present illness: Ms. Riley is a 61 year old female [place] resident admitted to [facility] via the emergency department with a chief complaint of alteration in mental status and recent unwitnessed fall. I examined this patient and my medical decision-making was reviewed with the Resident Physician, Dr. Deepti Forte. For this encounter, I have reviewed the documentation, treatment plan, and medical decision making. I have had face to face time with this patient. Cumulative laboratory and radiographic data was reviewed and considered and discussed. Plan of care has been reviewed and discussed in detail. Questions addressed. Consultative opinions will be sought as clinical circumstances justify. I agree with the documented findings, disposition and treatment plan as described except to the extent set forth below. Given the patient's presenting concerns, past medical history, clinical findings and symptoms, she is admitted at this time to undergo further evaluation and disposition. Condition is serious. Prognosis guarded. CODE STATUS DNR comfort care arrest. Past Med Surg Social Fam HX - Past Medical History Source: old records reviewed Medical history: arthritis, asthma, atrial fibrillation, CHF, COPD ([place]. Chr resp failure continuous O2 dependent.Emphysema.), coronary artery disease, CVA, DVT, diabetes, dialysis, fibromyalgia, GERD, GI bleed (Diverticulosis of colon./DU.), hyperlipidemia, hypertension, kidney stones, migraine, myocardial infarction, osteoporosis (Vit D def.), peripheral artery disease, renal disease, other (polyneuropathy, DM.Iron def anemia) Psychiatric history: anxiety, depression, schizophrenia, previous psychiatric hospitalization, other - Past Surgical History Surgical History: angioplasty/stent, appendectomy, cholecystectomy, coronary bypass (CABG), hysterectomy, knee replacement, other, IVC filter - Social History Smoking Status: Former smoker Alcohol use: none, unknown Drug use: none, unknown Occupational status: unemployed Current living situation: [facility] Activity Level: Uses cane/walker, Wheelchair bound, Mostly sedentary Recent Out of Country Travel Within the Last 8 Weeks: No Exposure or Possible Exposure to Illness During Travel: No ROS unobtainable: due to mental status All Systems PM: A 10-system review of systems was performed and is negative for pertinent findings except as documented above in the HPI. - Constitutional Constitutional: as per HPI - EENT Eyes: as per HPI Ears: as per HPI Nose, mouth and throat: as per HPI - Cardiovascular Cardiovascular ROS IM: as per HPI - Respiratory Respiratory: as per HPI - Gastrointestinal Gastrointestinal: as per HPI - Genitourinary Genitourinary: as per HPI Menstruation: as per HPI - Musculoskeletal Musculoskeletal ROS IM: as per HPI - Integumentary Integumentary IM: as per HPI - Neurological Neurological ROS: as per HPI - Psychiatric Psychiatric: as per HPI - Endocrine Endocrine IM: as per HPI - Hematologic/Lymphatic Hematologic/Lymphatic: as per HPI - Allergic/Immunologic Allergic/Immunologic: as per HPI - Constitutional Vitals: Temp Pulse Resp BP Pulse Ox 97.9 F 76 18 116/70 99 02/05/17 07:59 02/05/17 07:59 02/05/17 07:59 02/05/17 07:59 02/05/17 07:59 Vital Signs Temp Pulse Resp BP Pulse Ox 02/05/17 07:59 97.9 F 76 18 116/70 99 02/05/17 04:25 18 100 02/05/17 02:23 97.4 F L 71 17 104/48 99 02/05/17 01:19 20 109/72 02/05/17 00:15 86 20 140/93 100 02/04/17 23:45 78 20 133/67 100 02/04/17 22:45 78 20 131/59 100 02/04/17 20:45 98.0 F 89 16 136/72 100 Intake and Output 02/04/17 02/05/17 02/05/17 23:59 07:59 15:59 Intake Total 1550 / 1550 Output Total 200 / 200 Balance 1350 / 1350 Intake: IV Fluids 1400 / 1400 0.9 % Sodium Chloride 1, 1000 / 1000 000 ML @ 3750 mls/hr IVC .Q16M ONE Rx#:[id number] Levaquin 750mg/150 mL 750 150 / 150 mg In 150 ml @ 100 mls/ hr IVPB ONCE ONE Rx#: [id number] Vancocin 1,000 MG In 250 / 250 Dextrose 5% 250 ML @ 167 mls/hr IVPB ONCE ONE Rx#: [id number] Oral 150 / 150 Output: Catheter 200 / 200 Other: Weight 107.955 kg 120 kg Blood Glucose* 122 Patient Weight 02/05/17 23:59 Weight 120 kg General appearance: Present: cooperative, A&O X 2, morbidly obese, no acute distress Internal Med - H&P Results - Labs CBC & Chem 7: 02/09/17 04:04 02/09/17 04:04 Labs: Short CBC 02/05/17 Range/Units 05:31 WBC 8.9 (4.3-11.1) K/mcL Hgb 9.2 L (11.5-15.4) g/dL Hct 31.1 L (35.3-44.9) % Plt Count 166 (140-400) K/mcL Neutrophils # 5.5 (1.6-8.9) K/mcL BMP 02/05/17 05:31 Sodium 140 Potassium 4.4 Chloride 104 Carbon Dioxide 24 BUN 27 H Creatinine 4.04 H Glucose 119 H Calcium 8.8 Abnormal lab results RBC 3.70 M/mcL (3.82-4.97) L 02/05/17 05:31 Hgb 9.2 g/dL (11.5-15.4) L 02/05/17 05:31 Hct 31.1 % (35.3-44.9) L 02/05/17 05:31 MCH 24.9 pg (28.0-33.3) L 02/05/17 05:31 MCHC 29.6 g/dL (31.6-35.5) L 02/05/17 05:31 RDW 17.3 % (11.5-14.5) H 02/05/17 05:31 Nucleated RBCs/100 WBC 0.2 /100 WBC (0) H 02/05/17 05:31 PT 12.3 Seconds (9.4-12.1) H 02/04/17 23:15 BUN 27 mg/dL (7-20) H 02/05/17 05:31 Creatinine 4.04 mg/dL (0.57-1.11) H 02/05/17 05:31 Est GFR ( Amer) 14 (> 60) L 02/05/17 05:31 Est GFR (Non-Af Amer) 11 (> 60) L 02/05/17 05:31 Glucose 119 mg/dL (70-99) H 02/05/17 05:31 POC Glucose 122 (58-89) H 02/04/17 21:32 Phosphorus 6.0 mg/dL (2.3-4.7) H 02/05/17 05:31 Alkaline Phosphatase 132 Units/L (38-126) H 02/04/17 22:03 Ammonia 10 mcmol/L (18-72) L 02/04/17 23:15 Albumin 2.8 g/dL (3.5-5.0) L 02/04/17 22:03 Globulin 4.0 g/dL (2.4-3.5) H 02/04/17 22:03 Albumin/Globulin Ratio 0.7 (1.1-2.2) L 02/04/17 22:03 Urine Clarity Turbid (Clear) A 02/05/17 00:15 Urine Protein >=300 mg/dL (Neg-Trace) H 02/05/17 00:15 Urine Ketones Trace mg/dL (Negative) H 02/05/17 00:15 Urine Blood Large (Negative) H 02/05/17 00:15 Urine Bilirubin Large (Negative) H 02/05/17 00:15 Ur Leukocyte Esterase Large (Negative) H 02/05/17 00:15 Urine Microscopic RBC 30-50 per hpf (0-3) H 02/05/17 00:15 Urine Microscopic WBC TNTC per hpf (0-3) H 02/05/17 00:15 Ur Squamous Epith Cells Many per lpf (None-Few) H 02/05/17 00:15 Urine Bacteria Many per hpf (None-Few) H 02/05/17 00:15 Urine Yeast Many per hpf (None Seen) H 02/05/17 00:15 Ur Culture Indicated? YES (NO) A 02/05/17 00:15 Urine Opiates Screen Positive ng/mL (Sfjabw=[id number]) H 02/05/17 00:15 Chest X-Ray 02/04/17 21:21 IMPRESSION: 1. Findings are suggestive of cardiomegaly and early pulmonary interstitial edema. Underlying pneumonia is not excluded. D/ / 02/04/2017 23:05:41 Fidel Fitzgerald MD / rena Interpreting Provider: Fidel Fitzgerald MD Head CT 02/04/17 21:22 IMPRESSION: No acute intracranial abnormality. Chronic small vessel ischemic disease. D/ / 02/04/2017 22:53:30 Fidel Fitzgerald MD / rena Interpreting Provider: Fidel Fitzgerald MD Abdomen/Pelvis CT 02/04/17 21:32 IMPRESSION: No acute traumatic abnormality in the abdomen or pelvis. Unchanged compression deformity at L2. Patchy bibasilar airspace disease, improved from prior chest CT. Several hypodense lesions within both kidneys, indeterminate. Renal ultrasound is recommended for further evaluation. D/ / 02/04/2017 22:58:55 Dennis Parra MD / rena Interpreting Provider: Dennis Parra MD - Attending Attestation My signature below is to certify that this patient is under my care and that I, or the Resident Physician working with me, has had a [id number] encounter with this patient.
[2017-02-05] MEDS ORDERED: Albuterol 2.5 MG/3 ML NEBULIZER IH PRN (02:12)
[2017-02-05] MEDS ORDERED: D5% in Water 1,000 ML IVC PRN (02:52)
[2017-02-05] MEDS ORDERED: Dextrose Gel 15 GM PO PRN ×2 (02:52)
[2017-02-05] MEDS ORDERED: *HR* Dextrose 50 % in Water (Syg) 50 ML SYRINGE IVP PRN (02:52)
[2017-02-05] MEDS: Ipratropium/Albuterol Neb 3 ML IH SCH ×2 (04:25→11:14)
[2017-02-05] MEDS ORDERED: Benzonatate 100 MG CAPSULE PO PRN (05:34)
[2017-02-05] MEDS ORDERED: Ondansetron ODT 4 MG TAB.RAPDIS SL PRN (05:34)
[2017-02-05] MEDS: *HR* Heparin 5,000 UNIT/ML VIAL SQ SCH ×3 (06:17→22:06)
[2017-02-05 06:18] LABS: Basophils # 0.1 K/mcL (0.0-0.2); Basophils % 0.7 %; Eosinophils # 0.3 K/mcL (0.0-0.6); Eosinophils % 3.6 %; Hematocrit 31.1 % (35.3-44.9); Hemoglobin 9.2 g/dL (11.5-15.4); Immature Granulocytes % 2.4 % (0-4); Lymphocytes # 1.9 K/mcL (0.6-4.6); Lymphocytes % 21.4 %; Mean Corpuscular HGB Conc 29.6 g/dL (31.6-35.5); Mean Corpuscular Hemoglobin 24.9 pg (28.0-33.3); Mean Corpuscular Volume 84.1 fL (83.0-100.0); Mean Platelet Volume 10.7 fL (9.4-12.4); Monocytes # 0.9 K/mcL (0.0-1.3); Monocytes % 10.5 %; Neutrophils # 5.5 K/mcL (1.6-8.9); Nucleated Red Blood Cells 0.2 /100 WBC (0); Platelet Count 166 K/mcL (140-400); Red Cell Distribution Width 17.3 % (11.5-14.5); Segmented Neutrophils % 61.4 %
[2017-02-05 06:46] LABS: Calcium 8.8 mg/dL (8.6-10.8); Magnesium 2.2 mg/dL (1.6-2.6); Potassium 4.4 mEq/L (3.5-4.5)
[2017-02-05] MEDS ORDERED: *HR* Morphine 2 MG/ML SYRINGE IVP PRN (08:30)
[2017-02-05] MEDS ORDERED: *HR* Promethazine 25 MG/ML VIAL IVP PRN (08:30)
[2017-02-05] MEDS ORDERED: *HR* OxyCODONE Immed Rel 5 MG TABLET PO PRN (08:30)
[2017-02-05] MEDS: Insulin LISPRO 300 UNITS/3 ML VIAL SQ SCH ×4 (08:57→22:08)
[2017-02-05] MEDS ORDERED: (Colestipol Hcl [Colestid] 1 GM) PO SCH (09:00)
[2017-02-05] MEDS ORDERED: Gabapentin 100 MG CAPSULE PO SCH (09:00)
[2017-02-05] MEDS: Piperacillin/Tazobactam 3.375 GM in D5% in Water (Mini-Bag+) 100 ML IVPB SCH ×2 (09:22→20:13)
[2017-02-05] MEDS: amLODIPine 5 MG TABLET PO SCH (09:26)
[2017-02-05] MEDS: Insulin DETEMIR 100 UNIT/ML X5UNITS SQ SCH ×2 (09:26→22:06)
[2017-02-05] MEDS: Sennosides/Docusate Sodium TABLET PO SCH (09:26)
[2017-02-05] MEDS: Furosemide 40 MG TABLET PO SCH ×2 (09:26→21:58)
[2017-02-05] MEDS: Tiotropium 18 MCG inhalation IH SCH ×2 (11:14→16:15)
[2017-02-05 11:17] LABS: Adenovirus Not Detected (Not Detect); Bordetella Pertussis Not Detected (Not Detect); Chlamydophila pneumoniae Not Detected (Not Detect); Coronavirus 229E Not Detected (Not Detect); Coronavirus HKU1 Not Detected (Not Detect); Coronavirus NL63 Not Detected (Not Detect); Coronavirus OC43 Not Detected (Not Detect); Human Metapneumovirus Not Detected (Not Detect); Human Rhinovirus/Enterovirus Not Detected (Not Detect); Influenza A Subtype 2009 H1 Not Detected (Not Detect); Influenza A Untypeable Not Detected (Not Detect); Influenza B Not Detected (Not Detect); Mycoplasma pneumoniae Not Detected (Not Detect); Parainfluenza Virus 1 Not Detected (Not Detect); Parainfluenza Virus 2 Not Detected (Not Detect); Parainfluenza Virus 3 Not Detected (Not Detect); Parainfluenza Virus 4 Not Detected (Not Detect); Respiratory Syncytial Virus Not Detected (Not Detect)
[2017-02-05] MEDS ORDERED: Ipratropium/Albuterol Neb 3 ML IH PRN (12:01)
[2017-02-05] MEDS ORDERED: 0.9 % Sodium Chloride 250 ML IVC PRN (12:33)
[2017-02-05] MEDS ORDERED: 0.9 % Sodium Chloride 1,000 ML PRIME SCH (12:45)
[2017-02-05 13:13] LABS: VBG PH 7.46 pH Units (7.32-7.42)
[2017-02-05 13:50] LABS: Hepatitis B Surface Antibody 198.13 mIU/mL; Hepatitis B Surface Antigen Nonreactive (Nonreactive)
[2017-02-05 14:24] LABS: Thyroid Stimulating Hormone 0.746 mcIU/mL (0.350-4.840)
[2017-02-05] MEDS: Calcium Acetate 667 MG CAPSULE PO SCH ×2 (14:39→17:49)
[2017-02-05] MEDS: Gabapentin 100 MG CAPSULE PO SCH ×2 (15:19→21:58)
--- NOTE | 2017-02-05 15:26 | Nephrology Consult Note ---
Date of Encounter: 02/05/17 Time of Encounter: 15:23 Assessment and Plan (1) ESRD (end stage renal disease) on dialysis Current Visit: No Status: Chronic HD MWF. Adjust medications for renal function. Renal diet. (2) Anemia Current Visit: No Status: Acute Monitor for bleeding. Transfuse as needed. Qualifiers: Qualified Code(s): D64.9 - Anemia, unspecified (3) UTI (urinary tract infection) Current Visit: No Status: Acute Per primary team. Qualifiers: Urinary tract infection type: acute cystitis Hematuria presence: without hematuria Qualified Code(s): N30.00 - Acute cystitis without hematuria History of Present Illness - Reason for Consult Consult date: 02/05/17 end stage renal disease - Chief Complaint ESRD - History of Present Illness Ms Riley is a 61 yo woman with ESRD on dialysis MWF who presents for shortness of breath and cough. She is asleep on dialysis at the time of my evaluation. History is obtained from review of the initial H&P. Past Med Surg Social Fam HX - Past Medical History Medical history: arthritis, asthma, atrial fibrillation, CHF, COPD (DESHAWN. Chr resp failure continuous O2 dependent.Emphysema.), coronary artery disease, CVA, DVT, diabetes, dialysis, fibromyalgia, GERD, GI bleed (Diverticulosis of colon./DU.), hyperlipidemia, hypertension, kidney stones, migraine, myocardial infarction, osteoporosis (Vit D def.), peripheral artery disease, renal disease, other (polyneuropathy, DM.Iron def anemia) Psychiatric history: anxiety, depression, schizophrenia, previous psychiatric hospitalization, other - Past Surgical History Surgical History: angioplasty/stent, appendectomy, cholecystectomy, coronary bypass (CABG), hysterectomy, knee replacement, other, IVC filter - Social History Smoking Status: Former smoker Smokeless Tobacco Status: No Alcohol use: none, unknown Drug use: none, unknown - Family History Father Living Status: Hx Family Cardiac Disorders: Yes Hx Family Endocrine Disorder: Yes Mother Living Status: Still Living Hx Family Respiratory Disorders: Yes (end stage copd) Medications and Allergies Amitriptyline [Elavil] 100 mg PO HS 05/11/15 [History] Clopidogrel [Plavix] 75 mg PO DAILY 05/11/15 [History] Omeprazole [PriLOSEC] 20 mg PO BID 05/11/15 [History] Rosuvastatin [Crestor] 40 mg PO HS 05/11/15 [History] Sevelamer [Renvela] 800 mg PO TIDWM 05/11/15 [History] Aripiprazole [Abilify] 10 mg PO HS 06/12/15 [History] Colestipol HCl [Colestid] 1 gm PO BID 06/12/15 [History] Carvedilol 12.5 mg PO BID 10/28/15 [History] Amlodipine [Norvasc] 5 mg PO DAILY 06/09/16 [History] Insulin Glargine,Hum.rec.anlog [Lantus Solostar] 60 unit SQ BID 06/09/16 [ History] Gabapentin [Neurontin] 200 mg PO TID 30 Days 06/18/16 [Rx] Calcium Acetate [Phos-LO] 667 mg PO TIDWM 09/06/16 [History] Furosemide [Lasix] 80 mg PO BID 09/06/16 [History] Metolazone [Zaroxolyn] 2.5 mg PO MOWEFR 09/06/16 [History] Albuterol Sulfate [Ventolin Hfa] 2 puff IH Q4H PRN 12/29/16 [History] Ondansetron ODT [Zofran ODT] 4 mg SL Q8HR PRN 12/29/16 [History] Tiotropium [Spiriva] 1 puff IH DAILY 01/12/17 [History] Benzonatate [Tessalon] 200 mg PO TID PRN #40 capsule 01/16/17 [Rx] Ertapenem [INVanz] 500 mg IVPB DAILY #14 vial 01/22/17 [Rx] GuaiFENesin/Dextromethorphan [Robitussin/Dm] 10 ml PO Q6HR udc 01/22/17 [Rx] Sennosides/Docusate Sodium [Senna Plus] 1 each PO DAILY tablet 01/22/17 [Rx] OxyCODONE ER (12 HR) [OxyCONTIN] 20 mg PO Q12HR #14 tab.er.12h 01/23/17 [Rx] Oxycodone HCl/Acetaminophen [Percocet 5-325 mg Tablet] 1 each PO Q8H #20 tablet 01/23/17 [Rx] Insulin LISPRO [HumaLOG] 0 - 16 units SQ TIDAC 02/05/17 [History] Insulin LISPRO [HumaLOG] 0 - 9 unit SQ HS 02/05/17 [History] Allergies No Known Allergies Allergy (Verified 01/12/17 11:29) Review of Systems ROS unobtainable: other (Patient asleep and comfortable on dialysis ) Exam - Vital Signs Vital signs: Initial Vital Signs Temp Pulse Resp BP Pulse Ox 98.0 F 89 16 136/72 100 02/04/17 20:45 02/04/17 20:45 02/04/17 20:45 02/04/17 20:45 02/04/17 20:45 Vital Signs - Last 8 Hours Temp Pulse Resp BP Pulse Ox 02/05/17 09:00 99 02/05/17 07:59 97.9 F 76 18 116/70 99 Intake and Output 02/04/17 02/05/17 02/05/17 23:59 07:59 15:59 Intake Total 1550 / 1550 Output Total 200 / 200 Balance 1350 / 1350 Intake: IV Fluids 1400 / 1400 0.9 % Sodium Chloride 1, 1000 / 1000 000 ML @ 3750 mls/hr IVC .Q16M ONE Rx#:[id number] Levaquin 750mg/150 mL 750 150 / 150 mg In 150 ml @ 100 mls/ hr IVPB ONCE ONE Rx#: [id number] Vancocin 1,000 MG In 250 / 250 Dextrose 5% 250 ML @ 167 mls/hr IVPB ONCE ONE Rx#: [id number] Oral 150 / 150 Output: Catheter 200 / 200 Other: Weight 120 kg Blood Glucose* 147 Patient Weight 02/05/17 23:59 Weight 120 kg - General Appearance General appearance: well-developed, well-nourished, obese EENT: ATNC Neck: supple Respiratory: clear (anteriorly) Cardiology: regular rate - Dialysis Access Dialysis Vascular Access: Arteriovenous Fistula Gastrointestinal: normoactive bowel sounds, no tenderness Integumentary: warm and dry Additional Comments: asleep Musculoskeletal: no cyanosis Results - Lab Results 02/05/17 05:31 02/05/17 05:31 Most recent lab results Calcium 8.8 mg/dL (8.6-10.8) 02/05/17 05:31 Phosphorus 6.0 mg/dL (2.3-4.7) H 02/05/17 05:31 Magnesium 2.2 mg/dL (1.6-2.6) 02/05/17 05:31 Consult Discharge Plan - Plan Referrals: Tristen Quintana MD [Primary Care Provider] -
--- NOTE | 2017-02-05 17:10 | Event Note ---
Date of Encounter: 02/05/17 Time of Encounter: 17:08 Patient is a 61-year-old female who is admitted for catheter associated urinary tract infection. She has medical history of end-stage renal disease on hemodialysis, diabetes, CHF, hypertension, CAD, morbid obesity. We will continue IV antibiotics and de-escalate therapy as per cultures. Nephrology input appreciated, we will continue dialysis as per her outpatient dialysis schedule. Pt seen and examined at bedside and reports of feeling better since her arrival to the hospital.
[2017-02-05] MEDS: *HR* OxyCODONE ER (12 HR) 20 MG TABLET PO SCH (17:49)
--- NOTE | 2017-02-05 17:50 | Electrocardiograph Report ---
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
[2017-02-05] MEDS: ARIPiprazole 10 MG TABLET PO SCH (21:58)
[2017-02-06 05:22] LABS: Hematocrit 35.8 % (35.3-44.9); Mean Corpuscular HGB Conc 30.4 g/dL (31.6-35.5); Mean Corpuscular Hemoglobin 25.2 pg (28.0-33.3); Mean Corpuscular Volume 82.7 fL (83.0-100.0); Platelet Count 201 K/mcL (140-400); Red Blood Count 4.33 M/mcL (3.82-4.97); Red Cell Distribution Width 17.5 % (11.5-14.5)
[2017-02-06 05:33] LABS: Hemoglobin 10.9 g/dL (11.5-15.4)
[2017-02-06 05:44] LABS: Calcium 9.2 mg/dL (8.6-10.8); Chol/HDL Ratio 4.8 (0-4.9); Magnesium 1.9 mg/dL (1.6-2.6); Phosphorous 4.4 mg/dL (2.3-4.7); Potassium 4.4 mEq/L (3.5-4.5)
[2017-02-06 05:45] LABS: Hemoglobin A1C 7.4 %
[2017-02-06] MEDS: *HR* Heparin 5,000 UNIT/ML VIAL SQ SCH ×3 (06:02→21:09)
[2017-02-06] MEDS: *HR* OxyCODONE ER (12 HR) 20 MG TABLET PO SCH ×2 (06:09→18:15)
[2017-02-06] MEDS ORDERED: Insulin DETEMIR 100 UNIT/ML X5UNITS SQ ONE (07:55)
[2017-02-06] MEDS: Tiotropium 18 MCG inhalation IH SCH (08:28)
[2017-02-06] MEDS: Gabapentin 100 MG CAPSULE PO SCH ×3 (09:15→21:08)
[2017-02-06] MEDS: amLODIPine 5 MG TABLET PO SCH (09:15)
[2017-02-06] MEDS: Furosemide 40 MG TABLET PO SCH (09:15)
[2017-02-06] MEDS: Sennosides/Docusate Sodium TABLET PO SCH (09:15)
[2017-02-06] MEDS: Calcium Acetate 667 MG CAPSULE PO SCH ×3 (09:15→18:15)
[2017-02-06] MEDS: Insulin LISPRO 300 UNITS/3 ML VIAL SQ SCH ×4 (09:16→21:09)
[2017-02-06] MEDS: Piperacillin/Tazobactam 3.375 GM in D5% in Water (Mini-Bag+) 100 ML IVPB SCH ×2 (09:16→18:15)
[2017-02-06] MEDS: *HR* OxyCODONE Immed Rel 5 MG TABLET PO PRN (09:24)
--- NOTE | 2017-02-06 10:06 | Nephrology Progress Note ---
Date of Encounter: 02/06/17 Time of Encounter: 10:03 - Assessment and Plan (1) ESRD (end stage renal disease) on dialysis Current Visit: No Status: Chronic Plan for HD tomorrow Continue renal diet Avoid nephrotoxins if possible (2) UTI (urinary tract infection) Current Visit: No Status: Acute per primary team Qualifiers: Urinary tract infection type: acute cystitis Hematuria presence: without hematuria Qualified Code(s): N30.00 - Acute cystitis without hematuria Subjective Principal diagnosis: ESRD on dialysis, UTI Interval history: Patient seen and examined. Sleeping soundly but opens eyes to my voice. Objective - Vital Signs Vital signs: Vital Signs Temp Pulse Resp BP Pulse Ox 02/06/17 09:29 96 02/06/17 08:33 16 96 02/06/17 07:36 97.5 F L 87 15 115/69 98 02/06/17 03:53 97.5 F L 66 18 94/63 02/05/17 23:19 98.1 F 88 16 95/62 97 02/05/17 21:08 99 F 94 16 95/60 97 02/05/17 16:16 20 97 02/05/17 15:57 98.3 F 104 18 98/57 95 02/05/17 14:45 97.9 F 16 138/58 02/05/17 14:40 121/59 02/05/17 14:25 126/70 02/05/17 14:10 130/57 02/05/17 13:55 110/44 02/05/17 13:40 134/59 02/05/17 13:25 130/57 02/05/17 13:10 128/63 02/05/17 12:55 117/69 02/05/17 12:40 124/57 02/05/17 12:25 118/39 02/05/17 12:10 120/59 02/05/17 11:55 129/53 02/05/17 11:40 107/45 02/05/17 11:25 107/52 02/05/17 11:10 97.9 F 16 102/52 Intake and Output 02/05/17 02/06/17 02/06/17 23:59 07:59 15:59 Intake Total 200 / 200 100 / 100 Output Total 0 / 0 Balance 200 / 200 100 / 100 Intake: IV Fluids 100 / 100 100 / 100 Zosyn 3.375 GM In 100 / 100 100 / 100 Dextrose 5% (Minibag+) 100 ML 100 ML @ 25 mls/hr IVPB Q12H [facility] Rx#: [id number] Oral 100 / 100 Output: Catheter 0 / 0 Other: Meal Breakfast Percent of Meal Consumed 100% Weight 120.9 kg Blood Glucose* 142 143 Patient Weight 02/06/17 23:59 Weight 120.9 kg - General Appearance General appearance: Present: obese EENT: Present: ATNC Neck: Present: supple Respiratory: Present: rhonchi Cardiology: Present: no edema, normal S1, normal S2 Dialysis Vascular Access: Arteriovenous Fistula Gastrointestinal: Present: no tenderness, no guarding Integumentary: Present: warm and dry Neurologic: Present: alert and oriented x3 Psychiatric: Present: mood/affect appropriate, cooperative - Lab 02/06/17 05:09 02/06/17 05:09 Most recent lab results Calcium 9.2 mg/dL (8.6-10.8) 02/06/17 05:09 Phosphorus 4.4 mg/dL (2.3-4.7) 02/06/17 05:09 Magnesium 1.9 mg/dL (1.6-2.6) 02/06/17 05:09 Consult Discharge Plan - Plan Referrals: Tristen Quintana MD [Primary Care Provider] -
[2017-02-06] MEDS ORDERED: Vancomycin 1,000 MG in D5% in Water 250 ML IVPB SCH (11:00)
--- NOTE | 2017-02-06 13:36 | Internal Med Progress Note ---
Date of Encounter: 02/06/17 Time of Encounter: 13:34 - Assessment and plan (1) Catheter-associated urinary tract infection Current Visit: Yes Status: Suspected Assessment and plan: Hawkins catheter replaced in the ER upon arrival Urine culture preliminary report positive for Gram positive rods Will add Vancomycin, pharmacy to renally dose medication and monitor trough will f/u official culture report Qualifiers: Indwelling urinary catheter type: indwelling urethral catheter Encounter type: initial encounter Qualified Code(s): T83.511A - Infection and inflammatory reaction due to indwelling urethral catheter, initial encounter; N39.0 - Urinary tract infection, site not specified (2) DM2 (diabetes mellitus, type 2) Current Visit: No Status: Chronic Assessment and plan: Noted to be hypoglycemic this morning, improved with Dextrose Decreased levemir dosing to 30units BID from 60units BID Repeat FS within acceptable range pt tolerating PO intake well will continue SS insulin algorithm as needed Continue to closely monitor FS and BG Qualifiers: Diabetes mellitus complication status: with kidney complications Diabetes mellitus complication detail: with chronic kidney disease 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 insulin use: with correction use Chronic kidney disease stage: on chronic dialysis Qualified Code(s): E11.22 - Type 2 diabetes mellitus with diabetic chronic kidney disease; N18.6 - End stage renal disease; Z79.4 - laborer marine terminal (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 of insulin; Z99.2 - Dependence on renal dialysis (3) Anemia of chronic disease Current Visit: No Status: Chronic Assessment and plan: H&H low but acceptable Secondary to ESRD No acute bleeding reported continue to monitor H&H and transfuse as needed (4) CAD (coronary artery disease) Current Visit: No Status: Chronic Assessment and plan: no acute signs of angina present at this time continue home medications Qualifiers: Coronary Disease-Associated Artery/Lesion type: bypass graft [place] vs. transplanted heart: [place] heart Associated angina: without angina Qualified Code(s): I25.810 - Atherosclerosis of coronary artery bypass graft(s) without angina pectoris (5) CHF (congestive heart failure) Current Visit: No Status: Chronic Assessment and plan: Not in acute exacerbation will closely monitor for signs of volume overload continue to monitor I/Os and daily weight fluid restricted diet Qualifiers: Congestive heart failure type: diastolic Congestive heart failure chronicity: chronic Qualified Code(s): I50.32 - Chronic diastolic (congestive ) heart failure (6) ESRD (end stage renal disease) on dialysis Current Visit: No Status: Chronic Assessment and plan: Nephrology input appreciated pt to continue outpatient schedule of HD while hospitalized (7) Fall Current Visit: No Status: Acute Assessment and plan: will obtain PT eval will maintain fall precautions Qualifiers: Encounter type: initial encounter Qualified Code(s): W19.XXXA - Unspecified fall, initial encounter (8) HTN (hypertension) Current Visit: No Status: Chronic Assessment and plan: BP within acceptable range continue home medications Qualifiers: Hypertension type: essential hypertension Qualified Code(s): I10 - Essential (primary) hypertension (9) DVT prophylaxis Current Visit: No Status: Acute Assessment and plan: Heparin sQ - Subjective Interval history: Patient seen and examined with family present at bedside. Patient sitting in bed and having lunch. Reports of feeling better at this time and denies any discomfort at this time. No overnight issues were reported. - Constitutional Vitals: Temp Pulse Resp BP Pulse Ox 97.8 F 86 14 124/73 98 02/06/17 13:02 02/06/17 13:02 02/06/17 13:02 02/06/17 13:02 02/06/17 13:02 General appearance: Present: cooperative, A&O X 3, morbidly obese, no acute distress, answers questions appropriately - Head Head exam: Present: atraumatic, normocephalic - Eye Eye exam: Present: normal appearance, conjuntiva pink, sclera anicteric - Respiratory Respiratory exam: Absent: respiratory distress, wheezes - Cardiovascular Cardiovascular exam: Present: RRR, +S1, +S2. Absent: diastolic murmur, gallop, rubs, systolic murmur - GI/Abdominal GI/Abdominal exam: Present: normal bowel sounds, soft, no peritoneal signs. Absent: distended, tenderness - Extremities Exam Extremities exam: Present: pedal edema, warm, radial pulses palpable and symetrical. Absent: calf tenderness - Neurological Exam Neurological exam: Present: alert, oriented X3 - Psychiatric Psychiatric exam: Present: normal affect, normal mood Internal Medicine: Result - Labs CBC & Chem 7: 02/06/17 05:09 02/06/17 05:09 Labs: Short CBC 02/06/17 Range/Units 05:09 WBC 8.0 (4.3-11.1) K/mcL Hgb 10.9 L D (11.5-15.4) g/dL Hct 35.8 (35.3-44.9) % Plt Count 201 (140-400) K/mcL BMP 02/06/17 05:09 Sodium 137 Potassium 4.4 Chloride 95 L Carbon Dioxide 31 H BUN 17 D Creatinine 3.39 H Glucose 39 L* Calcium 9.2 - ABG Interpretation ABG results: PT/INR, D-dimer PT 12.3 Seconds (9.4-12.1) H 02/04/17 23:15 - Impressions Impressions Retroperitoneum Ultrasound 02/05/17 17:00 IMPRESSION: 1. Technically limited evaluation of the kidneys due to patient body habitus. 2. Complex cyst at the upper pole of the right kidney with internal septation. There also appears to be an indeterminate cyst in the mid left kidney. Definitive characterization may be considered with either CT or MRI with and without contrast. D/ / Francis Brooks MD / Francis Brooks MD Interpreting Provider: Francis Brooks MD Consult Discharge Plan - Plan Referrals: Tristen Quintana MD [Primary Care Provider] -
[2017-02-06] MEDS ORDERED: Vancomycin 1,250 MG in D5% in Water 250 ML IVPB ONE (14:03)
[2017-02-06] MEDS: ARIPiprazole 10 MG TABLET PO SCH (21:08)
[2017-02-06] MEDS: Insulin DETEMIR 100 UNIT/ML X5UNITS SQ SCH (21:08)
[2017-02-07 06:02] LABS: Basophils # 0.1 K/mcL (0.0-0.2); Basophils % 1.1 %; Calcium 8.9 mg/dL (8.6-10.8); Eosinophils # 0.3 K/mcL (0.0-0.6); Hematocrit 32.9 % (35.3-44.9); Hemoglobin 10.1 g/dL (11.5-15.4); Immature Granulocytes % 1.4 % (0-4); Lymphocytes % 28.4 %; Mean Corpuscular HGB Conc 30.7 g/dL (31.6-35.5); Mean Corpuscular Hemoglobin 25.6 pg (28.0-33.3); Mean Corpuscular Volume 83.5 fL (83.0-100.0); Mean Platelet Volume 9.8 fL (9.4-12.4); Monocytes # 0.8 K/mcL (0.0-1.3); Monocytes % 11.3 %; Neutrophils # 3.8 K/mcL (1.6-8.9); Phosphorous 6.5 mg/dL (2.3-4.7); Platelet Count 189 K/mcL (140-400); Potassium 4.6 mEq/L (3.5-4.5); Red Blood Count 3.94 M/mcL (3.82-4.97); Red Cell Distribution Width 17.4 % (11.5-14.5); Segmented Neutrophils % 53.8 %
[2017-02-07] MEDS: *HR* Heparin 5,000 UNIT/ML VIAL SQ SCH ×3 (06:24→21:46)
[2017-02-07] MEDS: *HR* OxyCODONE ER (12 HR) 20 MG TABLET PO SCH ×2 (06:25→17:02)
[2017-02-07] MEDS: Calcium Acetate 667 MG CAPSULE PO SCH ×3 (08:09→17:02)
[2017-02-07] MEDS: amLODIPine 5 MG TABLET PO SCH (08:10)
[2017-02-07] MEDS: Insulin LISPRO 300 UNITS/3 ML VIAL SQ SCH ×4 (08:10→21:49)
[2017-02-07] MEDS: Sennosides/Docusate Sodium TABLET PO SCH (08:10)
[2017-02-07] MEDS: Insulin DETEMIR 100 UNIT/ML X5UNITS SQ SCH ×2 (08:10→21:46)
[2017-02-07] MEDS: Gabapentin 100 MG CAPSULE PO SCH ×3 (08:10→21:47)
[2017-02-07] MEDS: Tiotropium 18 MCG inhalation IH SCH (08:26)
[2017-02-07] MEDS: Piperacillin/Tazobactam 3.375 GM in D5% in Water (Mini-Bag+) 100 ML IVPB SCH ×2 (09:34→21:49)
--- NOTE | 2017-02-07 12:28 | Internal Med Progress Note ---
Date of Encounter: 02/07/17 Time of Encounter: 12:26 - Assessment and plan (1) Catheter-associated urinary tract infection Current Visit: Yes Status: Suspected Assessment and plan: Hawkins catheter replaced in the ER upon arrival Urine culture preliminary report positive for Gram positive rods continue Vancomycin, pharmacy to renally dose medication and monitor trough will f/u official culture report Qualifiers: Indwelling urinary catheter type: indwelling urethral catheter Encounter type: initial encounter Qualified Code(s): T83.511A - Infection and inflammatory reaction due to indwelling urethral catheter, initial encounter; N39.0 - Urinary tract infection, site not specified (2) DM2 (diabetes mellitus, type 2) Current Visit: No Status: Chronic Assessment and plan: BG within acceptable range Continue levemir dosing to 30units BID pt tolerating PO intake well, ADA diet will continue SS insulin algorithm as needed Continue to closely monitor FS and BG Qualifiers: Diabetes mellitus complication status: with kidney complications Diabetes mellitus complication detail: with chronic kidney disease Diabetes mellitus intermediate manager insulin use: with group home use Chronic kidney disease stage: on chronic dialysis Qualified Code(s): E11.22 - Type 2 diabetes mellitus with diabetic chronic kidney disease; N18.6 - End stage renal disease; Z79.4 - terminologist (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 of insulin; Z99.2 - Dependence on renal dialysis (3) Anemia of chronic disease Current Visit: No Status: Chronic Assessment and plan: H&H low but acceptable Secondary to ESRD No acute bleeding reported continue to monitor H&H and transfuse as needed (4) CAD (coronary artery disease) Current Visit: No Status: Chronic Assessment and plan: no acute signs of angina present at this time continue home medications Qualifiers: Coronary Disease-Associated Artery/Lesion type: bypass graft [place] vs. transplanted heart: [place] heart Associated angina: without angina Qualified Code(s): I25.810 - Atherosclerosis of coronary artery bypass graft(s) without angina pectoris (5) CHF (congestive heart failure) Current Visit: No Status: Chronic Assessment and plan: Not in acute exacerbation will closely monitor for signs of volume overload continue to monitor I/Os and daily weight fluid restricted diet Qualifiers: Congestive heart failure type: diastolic Congestive heart failure chronicity: chronic Qualified Code(s): I50.32 - Chronic diastolic (congestive ) heart failure (6) ESRD (end stage renal disease) on dialysis Current Visit: No Status: Chronic Assessment and plan: Nephrology input appreciated pt to continue outpatient schedule of HD while hospitalized (7) Fall Current Visit: No Status: Acute Assessment and plan: will obtain PT eval will maintain fall precautions Qualifiers: Encounter type: initial encounter Qualified Code(s): W19.XXXA - Unspecified fall, initial encounter (8) HTN (hypertension) Current Visit: No Status: Chronic Assessment and plan: BP within acceptable range continue home medications Qualifiers: Hypertension type: essential hypertension Qualified Code(s): I10 - Essential (primary) hypertension (9) DVT prophylaxis Current Visit: No Status: Acute Assessment and plan: Heparin sQ - Subjective Interval history: Patient seen and examined at bedside. Reports of feeling better at this time and denies any discomfort at this time. No overnight issues were reported. - Constitutional Vitals: Temp Pulse Resp BP Pulse Ox 98.5 F 81 14 102/65 99 02/07/17 11:30 02/07/17 11:30 02/07/17 11:30 02/07/17 11:30 02/07/17 11:30 General appearance: Present: cooperative, A&O X 3, morbidly obese, no acute distress, answers questions appropriately - Head Head exam: Present: atraumatic, normocephalic - Eye Eye exam: Present: conjuntiva pink, sclera anicteric - Respiratory Respiratory exam: Absent: accessory muscle use, rales, rhonchi, wheezes Additional comments: equal air entry bilaterally - Cardiovascular Cardiovascular exam: Present: RRR, +S1, +S2. Absent: diastolic murmur, gallop, rubs, systolic murmur - GI/Abdominal GI/Abdominal exam: Present: normal bowel sounds, soft, no peritoneal signs. Absent: distended, tenderness - Extremities Exam Extremities exam: Present: pedal edema, warm, radial pulses palpable and symetrical. Absent: calf tenderness - Neurological Exam Neurological exam: Present: alert, oriented X3 - Psychiatric Psychiatric exam: Present: normal affect, normal mood Internal Medicine: Result - Labs CBC & Chem 7: 02/07/17 05:37 02/07/17 05:37 Labs: Short CBC 02/07/17 Range/Units 05:37 WBC 7.1 (4.3-11.1) K/mcL Hgb 10.1 L (11.5-15.4) g/dL Hct 32.9 L (35.3-44.9) % Plt Count 189 (140-400) K/mcL Neutrophils # 3.8 (1.6-8.9) K/mcL BMP 02/07/17 05:37 Sodium 132 L Potassium 4.6 H Chloride 91 L Carbon Dioxide 28 BUN 29 H D Creatinine 5.02 H Glucose 135 H Calcium 8.9 - ABG Interpretation ABG results: PT/INR, D-dimer PT 12.3 Seconds (9.4-12.1) H 02/04/17 23:15 Consult Discharge Plan - Plan Referrals: Tristen Quintana MD [Primary Care Provider] - (Web Requested 02-07-17)
[2017-02-07] MEDS: ARIPiprazole 10 MG TABLET PO SCH (21:47)
[2017-02-08] MEDS: Gabapentin 100 MG CAPSULE PO SCH ×3 (05:11→20:36)
[2017-02-08] MEDS: *HR* Heparin 5,000 UNIT/ML VIAL SQ SCH ×3 (05:11→23:34)
[2017-02-08] MEDS: *HR* OxyCODONE ER (12 HR) 20 MG TABLET PO SCH ×2 (05:12→17:46)
[2017-02-08] MEDS: Sennosides/Docusate Sodium TABLET PO SCH (05:12)
[2017-02-08] MEDS: Tiotropium 18 MCG inhalation IH SCH (07:47)
[2017-02-08] MEDS: Calcium Acetate 667 MG CAPSULE PO SCH ×3 (08:19→17:45)
[2017-02-08] MEDS: Insulin LISPRO 300 UNITS/3 ML VIAL SQ SCH ×4 (08:20→22:12)
[2017-02-08] MEDS: Piperacillin/Tazobactam 3.375 GM in D5% in Water (Mini-Bag+) 100 ML IVPB SCH ×2 (08:21→20:37)
[2017-02-08] MEDS: Insulin DETEMIR 100 UNIT/ML X5UNITS SQ SCH ×2 (08:24→22:13)
[2017-02-08] MEDS: *HR* OxyCODONE Immed Rel 5 MG TABLET PO PRN ×2 (08:41→20:35)
[2017-02-08] MEDS ORDERED: 0.9 % Sodium Chloride 250 ML IVC PRN (10:24)
[2017-02-08 12:10] LABS: Basophils # 0.1 K/mcL (0.0-0.2); Eosinophils # 0.3 K/mcL (0.0-0.6); Eosinophils % 3.1 %; Hematocrit 30.7 % (35.3-44.9); Hemoglobin 9.8 g/dL (11.5-15.4); Immature Granulocytes % 2.2 % (0-4); Lymphocytes # 1.8 K/mcL (0.6-4.6); Lymphocytes % 21.8 %; Mean Corpuscular HGB Conc 31.9 g/dL (31.6-35.5); Mean Corpuscular Hemoglobin 25.1 pg (28.0-33.3); Mean Corpuscular Volume 78.7 fL (83.0-100.0); Mean Platelet Volume 10.4 fL (9.4-12.4); Monocytes # 0.8 K/mcL (0.0-1.3); Nucleated Red Blood Cells 0.2 /100 WBC (0); Platelet Count 172 K/mcL (140-400); Red Cell Distribution Width 16.9 % (11.5-14.5); Segmented Neutrophils % 62.9 %
[2017-02-08 12:23] LABS: Calcium 8.8 mg/dL (8.6-10.8); Magnesium 2.3 mg/dL (1.6-2.6); Phosphorous 7.1 mg/dL (2.3-4.7)
[2017-02-08 12:30] LABS: Neutrophils # 5.2 K/mcL (1.6-8.9)
[2017-02-08 12:31] LABS: Platelet Estimate Normal (Normal)
--- NOTE | 2017-02-08 14:00 | Internal Med Progress Note ---
Date of Encounter: 02/08/17 Time of Encounter: 13:57 - Assessment and plan (1) Catheter-associated urinary tract infection Current Visit: Yes Status: Suspected Assessment and plan: Hawkins catheter replaced in the ER upon arrival Urine culture preliminary report positive for Gram positive rods continue Vancomycin, pharmacy to renally dose medication and monitor trough will f/u official culture report Qualifiers: Indwelling urinary catheter type: indwelling urethral catheter Encounter type: initial encounter Qualified Code(s): T83.511A - Infection and inflammatory reaction due to indwelling urethral catheter, initial encounter; N39.0 - Urinary tract infection, site not specified (2) DM2 (diabetes mellitus, type 2) Current Visit: No Status: Chronic Assessment and plan: Noted to be hyperglycemic, requiring 22units of additional insulin coverage Adjusted Levemir dosing according to the required coverage will continue to monitor FS and BG continue ss insulin algorithm as needed. Qualifiers: Diabetes mellitus complication status: with kidney complications Diabetes mellitus complication detail: with chronic kidney disease Diabetes mellitus online affiliate marketing manager insulin use: with online affiliate marketing manager use Chronic kidney disease stage: on chronic dialysis Qualified Code(s): E11.22 - Type 2 diabetes mellitus with diabetic chronic kidney disease; N18.6 - End stage renal disease; Z79.4 - custodial (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 of insulin; Z99.2 - Dependence on renal dialysis (3) Anemia of chronic disease Current Visit: No Status: Chronic Assessment and plan: H&H low but acceptable Secondary to ESRD No acute bleeding reported continue to monitor H&H and transfuse as needed (4) CAD (coronary artery disease) Current Visit: No Status: Chronic Assessment and plan: no acute signs of angina present at this time continue home medications Qualifiers: Coronary Disease-Associated Artery/Lesion type: bypass graft [place] vs. transplanted heart: [place] heart Associated angina: without angina Qualified Code(s): I25.810 - Atherosclerosis of coronary artery bypass graft(s) without angina pectoris (5) CHF (congestive heart failure) Current Visit: No Status: Chronic Assessment and plan: Not in acute exacerbation will closely monitor for signs of volume overload continue to monitor I/Os and daily weight fluid restricted diet Qualifiers: Congestive heart failure type: diastolic Congestive heart failure chronicity: chronic Qualified Code(s): I50.32 - Chronic diastolic (congestive ) heart failure (6) ESRD (end stage renal disease) on dialysis Current Visit: No Status: Chronic Assessment and plan: Nephrology input appreciated pt to continue outpatient schedule of HD while hospitalized (7) Fall Current Visit: No Status: Acute Assessment and plan: Physical therapy while hospitalized will maintain fall precautions Qualifiers: Encounter type: initial encounter Qualified Code(s): W19.XXXA - Unspecified fall, initial encounter (8) HTN (hypertension) Current Visit: No Status: Chronic Assessment and plan: BP within acceptable range continue home medications Qualifiers: Hypertension type: essential hypertension Qualified Code(s): I10 - Essential (primary) hypertension (9) DVT prophylaxis Current Visit: No Status: Acute Assessment and plan: Heparin sQ - Subjective Interval history: Patient seen and examined at bedside. Was seen shortly after Physical therapy eval and reported of feeling tired. No overnight issues were reported. - Constitutional Vitals: Temp Pulse Resp BP Pulse Ox 98.1 F 66 18 106/69 99 02/08/17 11:16 02/08/17 11:16 02/08/17 11:16 02/08/17 11:16 02/08/17 11:16 General appearance: Present: cooperative, A&O X 3, morbidly obese, no acute distress, answers questions appropriately - Head Head exam: Present: atraumatic, normocephalic - Eye Eye exam: Present: normal appearance, conjuntiva pink, sclera anicteric - Respiratory Respiratory exam: Absent: respiratory distress, wheezes - Cardiovascular Cardiovascular exam: Present: RRR, +S1, +S2. Absent: diastolic murmur, gallop, rubs, systolic murmur - GI/Abdominal GI/Abdominal exam: Present: normal bowel sounds, soft, no peritoneal signs. Absent: distended, tenderness - Extremities Exam Extremities exam: Present: pedal edema, warm, radial pulses palpable and symetrical. Absent: calf tenderness - Neurological Exam Neurological exam: Present: alert, oriented X3 - Psychiatric Psychiatric exam: Present: normal affect, normal mood Internal Medicine: Result - Labs CBC & Chem 7: 02/08/17 12:03 02/08/17 12:03 Labs: Short CBC 02/08/17 Range/Units 12:03 WBC 8.3 (4.3-11.1) K/mcL Hgb 9.8 L (11.5-15.4) g/dL Hct 30.7 L (35.3-44.9) % Plt Count 172 (140-400) K/mcL Neutrophils # 5.2 (1.6-8.9) K/mcL BMP 02/08/17 12:03 Sodium 129 L Potassium 6.0 H D Chloride 92 L Carbon Dioxide 24 BUN 52 H D Creatinine 5.62 H Glucose 219 H Calcium 8.8 - ABG Interpretation ABG results: PT/INR, D-dimer PT 12.3 Seconds (9.4-12.1) H 02/04/17 23:15 Consult Discharge Plan - Plan Referrals: Tristen Quintana MD [Primary Care Provider] - (Web Requested 02-07-17 Patient is [facility]...)
--- NOTE | 2017-02-08 16:30 | Nephrology Progress Note ---
Date of Encounter: 02/08/17 Time of Encounter: 16:27 - Assessment and Plan (1) ESRD (end stage renal disease) on dialysis Current Visit: No Status: Chronic HD MWF. Renal diet. Adjust medication for renal function. (2) Anemia Current Visit: No Status: Acute Monitor for bleed. Transfuse as needed. May need KAITLIN. Qualifiers: Qualified Code(s): D64.9 - Anemia, unspecified (3) UTI (urinary tract infection) Current Visit: No Status: Acute Per primary team. Awaiting final culture data. Qualifiers: Urinary tract infection type: acute cystitis Hematuria presence: without hematuria Qualified Code(s): N30.00 - Acute cystitis without hematuria Subjective Principal diagnosis: ESRD on dialysis, UTI Interval history: Patient seen initially around lunch time. She was alert and eating lunch with no complaint. She was seen on dialysis as well. Objective - Vital Signs Vital signs: Vital Signs Temp Pulse Resp BP Pulse Ox 02/08/17 15:00 131/61 02/08/17 14:45 126/58 02/08/17 14:30 104/56 02/08/17 14:15 131/48 02/08/17 14:00 108/60 02/08/17 13:45 133/55 02/08/17 13:30 97.5 F L 22 126/58 02/08/17 11:16 98.1 F 66 18 106/69 99 02/08/17 10:12 74 18 104/70 99 02/08/17 07:52 18 99 02/08/17 07:32 97.6 F 74 18 104/70 98 02/08/17 05:28 99 02/08/17 04:53 97.4 F L 74 20 115/77 99 02/07/17 20:52 97.5 F L 63 20 99/62 97 Intake and Output 02/08/17 02/08/17 02/08/17 07:59 15:59 23:59 Intake Total 100 / 100 840 / 840 Balance 100 / 100 840 / 840 Intake: IV Fluids 100 / 100 Zosyn 3.375 GM In 100 / 100 Dextrose 5% (Minibag+) 100 ML 100 ML @ 25 mls/hr IVPB Q12H [facility] Rx#: [id number] Oral 240 / 240 Intake, Rinseback and 600 / 600 Flushes Other: Meal Breakfast Percent of Meal Consumed 75% Weight 124.9 kg 124.9 kg Blood Glucose* 226 229 Hemodialysis Net Fluid 1971 Removed (mL) Patient Weight 02/08/17 23:59 Weight 124.9 kg - General Appearance General appearance: Present: well-developed, well-nourished, obese EENT: Present: ATNC Additional Comments: sleepy, but able to follow commands. tongue is midline and smile is symetric. - Lab 02/08/17 12:03 02/08/17 12:03 Most recent lab results Calcium 8.8 mg/dL (8.6-10.8) 02/08/17 12:03 Phosphorus 7.1 mg/dL (2.3-4.7) H 02/08/17 12:03 Magnesium 2.3 mg/dL (1.6-2.6) 02/08/17 12:03 Consult Discharge Plan - Plan Referrals: Tristen Quintana MD [Primary Care Provider] - (Web Requested 02-07-17 Patient is from [facility]...)
[2017-02-08] MEDS ORDERED: 0.9 % Sodium Chloride 2,000 ML ONE (16:51)
[2017-02-08] MEDS: amLODIPine 5 MG TABLET PO SCH (17:46)
[2017-02-08] MEDS ORDERED: Vancomycin 500 MG in D5% in Water (Mini-Bag+) 100 ML IVPB ONE (19:00)
[2017-02-08] MEDS: ARIPiprazole 10 MG TABLET PO SCH (20:36)
[2017-02-09 04:35] LABS: Basophils # 0.1 K/mcL (0.0-0.2); Eosinophils # 0.3 K/mcL (0.0-0.6); Eosinophils % 3.3 %; Hematocrit 34.2 % (35.3-44.9); Hemoglobin 10.4 g/dL (11.5-15.4); Immature Granulocytes % 1.5 % (0-4); Lymphocytes # 1.9 K/mcL (0.6-4.6); Mean Corpuscular HGB Conc 30.4 g/dL (31.6-35.5); Mean Corpuscular Volume 82.2 fL (83.0-100.0); Mean Platelet Volume 10.7 fL (9.4-12.4); Monocytes # 0.8 K/mcL (0.0-1.3); Monocytes % 9.5 %; Platelet Count 209 K/mcL (140-400); Red Blood Count 4.16 M/mcL (3.82-4.97); Red Cell Distribution Width 17.1 % (11.5-14.5); Segmented Neutrophils % 61.7 %
[2017-02-09 04:44] LABS: Calcium 9.2 mg/dL (8.6-10.8); Magnesium 2.1 mg/dL (1.6-2.6); Phosphorous 4.9 mg/dL (2.3-4.7)
[2017-02-09 04:49] LABS: Potassium 5.4 mEq/L (3.5-4.5)
[2017-02-09 05:46] LABS: Anisocytosis 1+ (Not Present); Platelet Estimate Normal (Normal)
[2017-02-09 05:47] LABS: Hypochromasia Present (Not Present); Microcytosis Present (Not Present)
[2017-02-09] MEDS: *HR* OxyCODONE ER (12 HR) 20 MG TABLET PO SCH ×2 (06:28→20:51)
[2017-02-09] MEDS: *HR* Heparin 5,000 UNIT/ML VIAL SQ SCH ×3 (06:28→20:46)
[2017-02-09] MEDS: Insulin LISPRO 300 UNITS/3 ML VIAL SQ SCH ×5 (08:47→21:23)
[2017-02-09] MEDS: Sennosides/Docusate Sodium TABLET PO SCH (08:48)
[2017-02-09] MEDS: Gabapentin 100 MG CAPSULE PO SCH ×3 (08:48→20:44)
[2017-02-09] MEDS: amLODIPine 5 MG TABLET PO SCH (08:48)
[2017-02-09] MEDS: Calcium Acetate 667 MG CAPSULE PO SCH ×3 (08:48→17:49)
[2017-02-09] MEDS: Piperacillin/Tazobactam 3.375 GM in D5% in Water (Mini-Bag+) 100 ML IVPB SCH ×2 (08:49→20:45)
[2017-02-09] MEDS: Insulin DETEMIR 100 UNIT/ML X5UNITS SQ SCH ×2 (08:50→21:26)
[2017-02-09] MEDS: Tiotropium 18 MCG inhalation IH SCH (08:53)
--- NOTE | 2017-02-09 10:01 | Nephrology Progress Note ---
Date of Encounter: 02/09/17 Time of Encounter: 09:58 - Assessment and Plan (1) ESRD (end stage renal disease) on dialysis Current Visit: No Status: Chronic Plan for HD tomorrow Continue renal diet Avoid nephrotoxins if possible (2) UTI (urinary tract infection) Current Visit: No Status: Acute per primary team Qualifiers: Urinary tract infection type: acute cystitis Hematuria presence: without hematuria Qualified Code(s): N30.00 - Acute cystitis without hematuria (3) Hyperphosphatemia Current Visit: No Status: Resolved (4) Hyperkalemia Current Visit: Yes Status: Acute Much better today at 5.4, down from 6.0 Continue renal diet and binders Subjective Principal diagnosis: ESRD on dialysis, UTI Interval history: Patient seen and examined. Currently having a powerglide placed. Objective - Vital Signs Vital signs: Vital Signs Temp Pulse Resp BP Pulse Ox 02/09/17 09:18 100 02/09/17 08:54 18 100 02/09/17 07:52 97.9 F 82 18 109/52 100 02/09/17 04:00 98.3 F 87 17 146/61 97 02/08/17 23:33 98.0 F 83 17 118/57 98 02/08/17 21:02 96 02/08/17 19:44 98.3 F 80 17 158/62 96 02/08/17 17:42 98.0 F 72 16 115/72 97 02/08/17 17:00 98 F 22 122/56 02/08/17 16:45 131/64 02/08/17 16:30 130/63 02/08/17 16:15 136/54 02/08/17 16:00 133/61 02/08/17 15:45 119/53 02/08/17 15:30 133/63 02/08/17 15:15 122/60 02/08/17 15:00 131/61 02/08/17 14:45 126/58 02/08/17 14:30 104/56 02/08/17 14:15 131/48 02/08/17 14:00 108/60 02/08/17 13:45 133/55 02/08/17 13:30 97.5 F L 22 126/58 02/08/17 11:16 98.1 F 66 18 106/69 99 02/08/17 10:12 74 18 104/70 99 Intake and Output 02/08/17 02/09/17 02/09/17 23:59 07:59 15:59 Intake Total 0 / 0 100 / 100 0 / 0 Output Total 4600 / 4600 0 / 0 Balance -4600 / -4600 100 / 100 0 / 0 Intake: IV Fluids 100 / 100 Zosyn 3.375 GM In 100 / 100 Dextrose 5% (Minibag+) 100 ML 100 ML @ 25 mls/hr IVPB Q12H [facility] Rx#: [id number] Oral 0 / 0 0 / 0 Output: Urine 0 / 0 0 / 0 Total Dialysis Output 4600 / 4600 Other: Weight 124.7 kg Blood Glucose* 234 224 Hemodialysis Net Fluid 4600 Removed (mL) Patient Weight 02/09/17 23:59 Weight 124.7 kg - General Appearance General appearance: Present: obese EENT: Present: ATNC, mucous membranes moist, hearing intact, vision intact Neck: Present: supple Cardiology: Present: edema, regular rate, regular rhythm Dialysis Vascular Access: Arteriovenous Fistula Gastrointestinal: Present: no tenderness, no guarding Integumentary: Present: warm and dry Neurologic: Present: alert and oriented x3 Psychiatric: Present: mood/affect appropriate, cooperative - Lab 02/09/17 04:04 02/09/17 04:04 Most recent lab results Calcium 9.2 mg/dL (8.6-10.8) 02/09/17 04:04 Phosphorus 4.9 mg/dL (2.3-4.7) H 02/09/17 04:04 Magnesium 2.1 mg/dL (1.6-2.6) 02/09/17 04:04 Consult Discharge Plan - Plan Referrals: Tristen Quintana MD [Primary Care Provider] - (Patient will follow up with PCP at [facility])
--- NOTE | 2017-02-09 14:31 | Internal Med Progress Note ---
Date of Encounter: 02/09/17 Time of Encounter: 14:29 - Assessment and plan (1) HCAP (healthcare-associated pneumonia) Current Visit: Yes Status: Acute Assessment and plan: concern for PNA given clinical status will continue IV abx at this time (to complete therapy for 5 days) f/u CXR f/u blood cultures (2) Catheter-associated urinary tract infection Current Visit: Yes Status: Suspected Assessment and plan: Hawkins catheter replaced in the ER upon arrival Urine culture preliminary report changed to Masha species f/u official report Qualifiers: Indwelling urinary catheter type: indwelling urethral catheter Encounter type: initial encounter Qualified Code(s): T83.511A - Infection and inflammatory reaction due to indwelling urethral catheter, initial encounter; N39.0 - Urinary tract infection, site not specified (3) DM2 (diabetes mellitus, type 2) Current Visit: No Status: Chronic Assessment and plan: Noted to be hyperglycemic, requiring 33units of additional insulin coverage Adjusted Levemir dosing according to the required coverage Added Humalog TIDAC given the insulin requirements will continue to monitor FS and BG continue ss insulin algorithm as needed. Qualifiers: Diabetes mellitus complication status: with kidney complications Diabetes mellitus complication detail: with chronic kidney disease Diabetes mellitus program support clerk insulin use: with program support clerk use Chronic kidney disease stage: on chronic dialysis Qualified Code(s): E11.22 - Type 2 diabetes mellitus with diabetic chronic kidney disease; N18.6 - End stage renal disease; Z79.4 - occupational health coordinator (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 of insulin; Z99.2 - Dependence on renal dialysis (4) Anemia of chronic disease Current Visit: No Status: Chronic Assessment and plan: H&H low but acceptable Secondary to ESRD No acute bleeding reported continue to monitor H&H and transfuse as needed (5) CAD (coronary artery disease) Current Visit: No Status: Chronic Assessment and plan: no acute signs of angina present at this time continue home medications Qualifiers: Coronary Disease-Associated Artery/Lesion type: bypass graft [place] vs. 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 (6) CHF (congestive heart failure) Current Visit: No Status: Chronic Assessment and plan: Not in acute exacerbation will closely monitor for signs of volume overload continue to monitor I/Os and daily weight fluid restricted diet Qualifiers: Congestive heart failure type: diastolic Congestive heart failure chronicity: chronic Qualified Code(s): I50.32 - Chronic diastolic (congestive ) heart failure (7) ESRD (end stage renal disease) on dialysis Current Visit: No Status: Chronic Assessment and plan: Nephrology input appreciated pt to continue outpatient schedule of HD while hospitalized (8) Fall Current Visit: No Status: Acute Assessment and plan: Physical therapy while hospitalized will maintain fall precautions Qualifiers: Encounter type: initial encounter Qualified Code(s): W19.XXXA - Unspecified fall, initial encounter (9) HTN (hypertension) Current Visit: No Status: Chronic Assessment and plan: BP within acceptable range continue home medications Qualifiers: Hypertension type: essential hypertension Qualified Code(s): I10 - Essential (primary) hypertension (10) DVT prophylaxis Current Visit: No Status: Acute Assessment and plan: Heparin sQ - Subjective Interval history: Patient seen and examined at bedside. Reports of having difficulty breathing but noted to be saturating well on room air. Diffuse coarse breath sounds on auscultation. Will repeat CXR and continue empiric IV abx for another day. - Constitutional Vitals: Temp Pulse Resp BP Pulse Ox 98.2 F 73 18 115/61 99 02/09/17 12:00 02/09/17 12:00 02/09/17 12:00 02/09/17 12:00 02/09/17 12:00 General appearance: Present: cooperative, A&O X 3, morbidly obese, no acute distress, answers questions appropriately - Head Head exam: Present: atraumatic, normocephalic - Eye Eye exam: Present: normal appearance, conjuntiva pink, sclera anicteric - Respiratory Respiratory exam: Absent: respiratory distress, wheezes (coarse breath sounds bilaterally ) - Cardiovascular Cardiovascular exam: Present: RRR, +S1, +S2. Absent: diastolic murmur, gallop, rubs, systolic murmur - GI/Abdominal GI/Abdominal exam: Present: normal bowel sounds, soft, no peritoneal signs. Absent: distended, tenderness - Extremities Exam Extremities exam: Present: pedal edema, warm, radial pulses palpable and symetrical. Absent: calf tenderness - Neurological Exam Neurological exam: Present: alert, oriented X3 - Psychiatric Psychiatric exam: Present: normal affect, normal mood Internal Medicine: Result - Labs CBC & Chem 7: 02/09/17 04:04 02/09/17 04:04 Labs: Short CBC 02/09/17 Range/Units 04:04 WBC 8.1 (4.3-11.1) K/mcL Hgb 10.4 L (11.5-15.4) g/dL Hct 34.2 L (35.3-44.9) % Plt Count 209 (140-400) K/mcL Neutrophils # 5.0 (1.6-8.9) K/mcL BMP 02/09/17 04:04 Sodium 137 D Potassium 5.4 H Chloride 100 Carbon Dioxide 25 BUN 26 H D Creatinine 3.66 H Glucose 209 H Calcium 9.2 - ABG Interpretation ABG results: PT/INR, D-dimer PT 12.3 Seconds (9.4-12.1) H 02/04/17 23:15 Consult Discharge Plan - Plan Referrals: Tristen Quintana MD [Primary Care Provider] - (Patient will follow up with PCP at [facility])
[2017-02-09] MEDS: ARIPiprazole 10 MG TABLET PO SCH (20:45)
[2017-02-10 04:39] LABS: Hemoglobin 10.1 g/dL (11.5-15.4); Mean Corpuscular HGB Conc 29.7 g/dL (31.6-35.5); Mean Corpuscular Hemoglobin 24.9 pg (28.0-33.3); Mean Platelet Volume 10.4 fL (9.4-12.4); Platelet Count 214 K/mcL (140-400); Red Blood Count 4.05 M/mcL (3.82-4.97); Red Cell Distribution Width 17.1 % (11.5-14.5)
[2017-02-10 04:51] LABS: Calcium 9.3 mg/dL (8.6-10.8)
[2017-02-10 04:58] LABS: Potassium 5.2 mEq/L (3.5-4.5)
[2017-02-10] MEDS: *HR* OxyCODONE ER (12 HR) 20 MG TABLET PO SCH (05:15)
[2017-02-10] MEDS: Sennosides/Docusate Sodium TABLET PO SCH (05:15)
[2017-02-10] MEDS: *HR* Heparin 5,000 UNIT/ML VIAL SQ SCH ×2 (05:15→15:27)
[2017-02-10] MEDS: Gabapentin 100 MG CAPSULE PO SCH ×2 (05:15→15:27)
[2017-02-10] MEDS: Piperacillin/Tazobactam 3.375 GM in D5% in Water (Mini-Bag+) 100 ML IVPB SCH (05:16)
[2017-02-10] MEDS: Insulin DETEMIR 100 UNIT/ML X5UNITS SQ SCH (08:05)
[2017-02-10] MEDS: Insulin LISPRO 300 UNITS/3 ML VIAL SQ SCH ×6 (08:06→16:35)
[2017-02-10] MEDS ORDERED: 0.9 % Sodium Chloride 250 ML IVC PRN (08:45)
[2017-02-10] MEDS ORDERED: 0.9 % Sodium Chloride 1,000 ML PRIME SCH (08:45)
--- NOTE | 2017-02-10 10:14 | Discharge Summary ---
Date of Encounter: 02/10/17 Time of Encounter: 09:30 - Discharge Diagnosis (1) HCAP (healthcare-associated pneumonia) Priority: Secondary Status: Acute Comments: Ruled out (2) Catheter-associated urinary tract infection Priority: Primary Status: Acute Qualifiers: Indwelling urinary catheter type: indwelling urethral catheter Encounter type: initial encounter Qualified Code(s): T83.511A - Infection and inflammatory reaction due to indwelling urethral catheter, initial encounter; N39.0 - Urinary tract infection, site not specified (3) DM2 (diabetes mellitus, type 2) Priority: Secondary Status: Chronic Qualifiers: Diabetes mellitus complication status: with kidney complications Diabetes mellitus complication detail: with chronic kidney disease Diabetes mellitus terminal gauger insulin use: with terminal gauger use Chronic kidney disease stage: on chronic dialysis Qualified Code(s): E11.22 - Type 2 diabetes mellitus with diabetic chronic kidney disease; N18.6 - End stage renal disease; Z79.4 - ferry terminal agent (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 of insulin; Z99.2 - Dependence on renal dialysis (4) Anemia of chronic disease Priority: Secondary Status: Chronic (5) CAD (coronary artery disease) Priority: Secondary Status: Chronic Qualifiers: Coronary Disease-Associated Artery/Lesion type: bypass graft [place] vs. transplanted heart: tribal heart Associated angina: without angina Qualified Code(s): I25.810 - Atherosclerosis of coronary artery bypass graft(s) without angina pectoris (6) CHF (congestive heart failure) Priority: Secondary Status: Chronic Qualifiers: Congestive heart failure type: diastolic Congestive heart failure chronicity: chronic Qualified Code(s): I50.32 - Chronic diastolic (congestive ) heart failure (7) ESRD (end stage renal disease) on dialysis Priority: Secondary Status: Chronic (8) Fall Priority: Secondary Status: Acute Qualifiers: Encounter type: initial encounter Qualified Code(s): W19.XXXA - Unspecified fall, initial encounter (9) HTN (hypertension) Priority: Secondary Status: Chronic Qualifiers: Hypertension type: essential hypertension Qualified Code(s): I10 - Essential (primary) hypertension (10) DVT prophylaxis Priority: Secondary Status: Acute - Discharge Medications Prescriptions: OxyCODONE ER (12 HR) [OxyCONTIN] 20 mg PO Q12HR #14 tab.er.12h Oxycodone HCl/Acetaminophen [Percocet 5-325 mg Tablet] 1 each PO Q8H PRN #20 tablet PRN Reason: Breakthrough Pain Home Medications: Amitriptyline [Elavil] 100 mg PO HS 05/11/15 [History] Clopidogrel [Plavix] 75 mg PO DAILY 05/11/15 [History] Omeprazole [PriLOSEC] 20 mg PO BID 05/11/15 [History] Rosuvastatin [Crestor] 40 mg PO HS 05/11/15 [History] Sevelamer [Renvela] 800 mg PO TIDWM 05/11/15 [History] Aripiprazole [Abilify] 10 mg PO HS 06/12/15 [History] Colestipol HCl [Colestid] 1 gm PO BID 06/12/15 [History] Carvedilol 12.5 mg PO BID 10/28/15 [History] Amlodipine [Norvasc] 5 mg PO DAILY 06/09/16 [History] Gabapentin [Neurontin] 200 mg PO TID 30 Days 06/18/16 [Rx] Calcium Acetate [Phos-LO] 667 mg PO TIDWM 09/06/16 [History] Furosemide [Lasix] 80 mg PO BID 09/06/16 [History] Metolazone [Zaroxolyn] 2.5 mg PO MOWEFR 09/06/16 [History] Albuterol Sulfate [Ventolin Hfa] 2 puff IH Q4H PRN 12/29/16 [History] Ondansetron ODT [Zofran ODT] 4 mg SL Q8HR PRN 12/29/16 [History] Tiotropium [Spiriva] 1 puff IH DAILY 01/12/17 [History] Benzonatate [Tessalon] 200 mg PO TID PRN #40 capsule 01/16/17 [Rx] GuaiFENesin/Dextromethorphan [Robitussin/Dm] 10 ml PO Q6HR udc 01/22/17 [Rx] Sennosides/Docusate Sodium [Senna Plus] 1 each PO DAILY tablet 01/22/17 [Rx] Insulin LISPRO [HumaLOG] 0 - 16 units SQ TIDAC 02/05/17 [History] Insulin LISPRO [HumaLOG] 0 - 9 unit SQ HS 02/05/17 [History] Insulin Glargine,Hum.rec.anlog [Lantus Solostar] 43 unit SQ BID #0 02/10/17 [Rx ] OxyCODONE ER (12 HR) [OxyCONTIN] 20 mg PO Q12HR #14 tab.er.12h 02/10/17 [Rx] Oxycodone HCl/Acetaminophen [Percocet 5-325 mg Tablet] 1 each PO Q8H PRN #20 tablet 02/10/17 [Rx] Allergies/Adverse Reactions: Allergies No Known Allergies Allergy (Verified 01/12/17 11:29) Date of admission: 02/05/17 00:54 Primary care physician: Tristen Quintana MD Consults: 02/05/17 02:59 Consult to Occupational Therapy [CONS] Routine Comment: Evaluate, develop and implement POC Consult to Physical Therapy [CONS] Routine Comment: Evaluate, develop and implement POC 02/05/17 03:26 Consult to Nephrology [CONS] Routine Consulting Provider: Kidney Olivia/MARCO/SWAPNA/MILLIE Reason for Consult: ESRD on HD MWF. Pt of Dr. Hernandez. Need HD today. Thank you! Will call in the morning. Call Completed: No 02/05/17 04:31 Consult to Quality Controller [CONS] Routine Reason for SW Consult: FROM [facility]IGNATURE-HAS O2 AND IS A HEMODIALYSIS PT-F JERMAINE DELEON-DR. CALVILLO 02/05/17 04:40 Consult to Wound Care [CONS] Routine Reason for Consult: SUTURES UNDER L 2ND TOE. CELLULITIS BLE Call Completed: No 02/05/17 12:45 Consult to Dialysis [CONS] ONCE 02/08/17 10:30 Consult to Dialysis [CONS] ONCE 02/09/17 09:15 Consult to Invasive Line Access Team [CONS] Routine Reason for Consult: Powerglide placement Line Type: EPIV 02/10/17 08:45 Consult to Dialysis [CONS] ONCE 02/11/17 08:45 Consult to Dialysis [CONS] ONCE Discharging clinician: Cecilia Velasquez Anticipated date of discharge: 02/10/17 - Patient Status Disposition: Transfer SNF Condition: Good Functional capacity at discharge: uses cane/walker Overall status at discharge: patient is back to baseline - Discharge Instructions Follow Up With: Tristen Quintana MD [Primary Care Provider] - (Patient will follow up with PCP at [facility]) Additional Instructions: Please follow up with your primary care physician and records associate within one week after your discharge from the hospital. Please continue your outpatient scheduled Hemodialysis. Due to your blood glucose readings during your hospitalization, your home dose of Levemir has been decreased to 43units twice a day. Closely monitor your fingerstick glucose and ask your primary care physician to adjust your therapy as needed. Resume all your home medications as prescribed by your primary care physician. - Diet and Activity Activity: as per physical therapy Diet: diabetic diet, low salt diet Hospital course: Ms. Riley is a 61 year old female with PMH of diastolic CHF (last echo on showed LVEF 55-60% with mild LV diastolic dysfunction), CAD s/p CABG 2001 & multiple LHC (last one on 10/29/16 found moderate CAD), COPD (on 2-3L continuous oxygen), CVA, PVD, type 2 DM, HLD, HTN, ESRD on dialysis MWF, fibromyalgia, GERD , nephrolithiasis, migraine and osteoporosis who was admitted for CAUTI. Her pereira catheter was replaced in the ER and she was started on empiric abx. There was a concern for pneumonia for which she was empirically treated. She responded well to therapy. Nephrology was consulted and her outpatient dialysis schedule was continued. She has finished 5 days of IV abx therapy and given her culture reports and negative xray findings, no further abx is needed upon discharge. Patient is hemodynamically stable and will be discharged to [facility] with follow up with her pcp and nephrology. Patient demonstrates understanding of her diagnosis and agree with the discharge care plan. - Time Spent with Patient Total time spent providing and/or coordinating discharge services: Greater than 30 minutes - Constitutional Vitals: Temp Pulse Resp BP Pulse Ox 98.1 F 68 17 125/66 97 02/10/17 07:52 02/10/17 07:52 02/10/17 07:52 02/10/17 07:52 02/10/17 08:10 General appearance: Present: cooperative, A&O X 3, morbidly obese, no acute distress - Head Head exam: Present: atraumatic, normocephalic - Eye Eye exam: Present: normal appearance, conjuntiva pink, sclera anicteric - Respiratory Respiratory exam: Absent: respiratory distress, wheezes - Cardiovascular Cardiovascular exam: Present: RRR, +S1, +S2. Absent: diastolic murmur, gallop, rubs, systolic murmur - GI/Abdominal GI/Abdominal exam: Present: normal bowel sounds, soft, no peritoneal signs. Absent: distended, tenderness - Extremities Exam Extremities exam: Present: pedal edema, warm, radial pulses palpable and symetrical - Neurological Exam Neurological exam: Present: alert, oriented X3
--- NOTE | 2017-02-10 10:27 | Physician Discharge Referral ---
[facility] Referral Info Transfer To: F Provider in Charge after Transfer: PCP - Diagnosis (1) HCAP (healthcare-associated pneumonia) Priority: Secondary Status: Acute (2) Catheter-associated urinary tract infection Priority: Primary Status: Acute (3) DM2 (diabetes mellitus, type 2) Priority: Secondary Status: Chronic (4) Anemia of chronic disease Priority: Secondary Status: Chronic (5) CAD (coronary artery disease) Priority: Secondary Status: Chronic (6) CHF (congestive heart failure) Priority: Secondary Status: Chronic (7) ESRD (end stage renal disease) on dialysis Priority: Secondary Status: Chronic (8) Fall Priority: Secondary Status: Acute (9) HTN (hypertension) Priority: Secondary Status: Chronic (10) DVT prophylaxis Priority: Secondary Status: Acute - Transfer Medications Prescriptions: OxyCODONE ER (12 HR) [OxyCONTIN] 20 mg PO Q12HR #14 tab.er.12h Oxycodone HCl/Acetaminophen [Percocet 5-325 mg Tablet] 1 each PO Q8H PRN #20 tablet PRN Reason: Breakthrough Pain Home Medications: Amitriptyline [Elavil] 100 mg PO HS 05/11/15 [History] Clopidogrel [Plavix] 75 mg PO DAILY 05/11/15 [History] Omeprazole [PriLOSEC] 20 mg PO BID 05/11/15 [History] Rosuvastatin [Crestor] 40 mg PO HS 05/11/15 [History] Sevelamer [Renvela] 800 mg PO TIDWM 05/11/15 [History] Aripiprazole [Abilify] 10 mg PO HS 06/12/15 [History] Colestipol HCl [Colestid] 1 gm PO BID 06/12/15 [History] Carvedilol 12.5 mg PO BID 10/28/15 [History] Amlodipine [Norvasc] 5 mg PO DAILY 06/09/16 [History] Gabapentin [Neurontin] 200 mg PO TID 30 Days 06/18/16 [Rx] Calcium Acetate [Phos-LO] 667 mg PO TIDWM 09/06/16 [History] Furosemide [Lasix] 80 mg PO BID 09/06/16 [History] Metolazone [Zaroxolyn] 2.5 mg PO MOWEFR 09/06/16 [History] Albuterol Sulfate [Ventolin Hfa] 2 puff IH Q4H PRN 12/29/16 [History] Ondansetron ODT [Zofran ODT] 4 mg SL Q8HR PRN 12/29/16 [History] Tiotropium [Spiriva] 1 puff IH DAILY 01/12/17 [History] Benzonatate [Tessalon] 200 mg PO TID PRN #40 capsule 01/16/17 [Rx] GuaiFENesin/Dextromethorphan [Robitussin/Dm] 10 ml PO Q6HR udc 01/22/17 [Rx] Sennosides/Docusate Sodium [Senna Plus] 1 each PO DAILY tablet 01/22/17 [Rx] Insulin LISPRO [HumaLOG] 0 - 16 units SQ TIDAC 02/05/17 [History] Insulin LISPRO [HumaLOG] 0 - 9 unit SQ HS 02/05/17 [History] Insulin Glargine,Hum.rec.anlog [Lantus Solostar] 43 unit SQ BID #0 02/10/17 [Rx ] OxyCODONE ER (12 HR) [OxyCONTIN] 20 mg PO Q12HR #14 tab.er.12h 02/10/17 [Rx] Oxycodone HCl/Acetaminophen [Percocet 5-325 mg Tablet] 1 each PO Q8H PRN #20 tablet 02/10/17 [Rx] Allergies/Adverse Reactions: Allergies No Known Allergies Allergy (Verified 01/12/17 11:29) - Respiratory Orders Smoking Cessation: Smoking cessation has been advised. For more information, call the [place] Tobacco Quit Line at 7-764-AYWJ-NOW. - Rehabiliation Orders Other: Please follow up with your primary care physician and health informatics specialist within one week after your discharge from the hospital. Please continue your outpatient scheduled Hemodialysis. Due to your blood glucose readings during your hospitalization, your home dose of Levemir has been decreased to 43units twice a day. Closely monitor your fingerstick glucose and ask your primary care physician to adjust your therapy as needed. Resume all your home medications as prescribed by your primary care physician. CERTIFICATION: I certify that the transfer of the above named patient to an Extended Care Facility is necessary for the continuing treatment of the diagnosis listed. The above information is true and accurate reflection of patient's current condition. Confidential - Redisclosure prohibited without a patient's written consent.
[2017-02-10] MEDS: Tiotropium 18 MCG inhalation IH SCH (10:42)
[2017-02-10] MEDS ORDERED: Vancomycin 500 MG in D5% in Water (Mini-Bag+) 100 ML IVPB ONE (14:00)
[2017-02-10 14:38] VITALS: BP 100/72
[2017-02-10] MEDS: amLODIPine 5 MG TABLET PO SCH (15:30)
[2017-02-10] MEDS ORDERED: Aminoglycoside Consult 1 EACH MC ONE (17:08)
[2017-02-10] MEDS ORDERED: 0.9 % Sodium Chloride 2,000 ML ONE (17:09)
== END 2017-02-10 17:09 ==
LOC: 2ANU 20:41 → EMEROO 20:41 → 2ANU 02-05 01:30
PROVIDERS: ADMIT Internal Medicine; ATTEND Internal Medicine

== ENCOUNTER 2017-03-26 11:58 | Inpatient (IN) ==
--- NOTE | 2017-03-26 12:05 | Emergency Department Note ---
Disposition Clinical Impression: Syncope and collapse, ESRD (end stage renal disease) on dialysis Dialysis complication Qualifiers: Encounter type: initial encounter Qualified Code(s): T82.898A - Other specified complication of vascular prosthetic devices, implants and grafts, initial encounter Altered mental status Qualifiers: Altered mental status type: unspecified Qualified Code(s): R41.82 - Altered mental status, unspecified Disposition: Admitted As Inpatient Condition: Fair Forms: Work/School Release, ED Satisfaction Letter Time of Disposition: 14:34 Altered Mental Status HPI - General Chief Complaint: ED General Medical Stated Complaint: Unresponsive at Dialysis Time Seen by Provider: 03/26/17 12:03 Source: patient, EMS Mode of arrival: EMS Limitations: altered mental status Nursing Notes Reviewed: Yes Vital Signs Reviewed: Yes - History of Present Illness HPI Narrative: 62-year-old female history of CAD, HF, COPD, IVs, dialysis dependent, dialyzes Wednesday with Dr. Hernandez/Tita, she presents via EMS after an episode of syncope while she was getting dialysis. They stated that they put an extra liter fluid on during the dialysis, she does have narcotics and gabapentin prescriptions. She has taken her medications regularly. According to EMS when they arrived the dialysis facility was trying to bag the patient, she had an oropharyngeal airway in place, she then proceeded to vomit and possibly aspirate in route in the ambulance. Patient is a poor historian, she denies chest pain abdominal pain headache, urinary symptoms. Patient does not know where she is, she is alert and oriented to herself. group home resident at [facility]. MD complaint: altered mental status, confusion, decreased responsiveness Onset (ago): minute(s) Pain Severity: none Consistency of Symptoms: waxing and waning Context: other (recent dialysis) Associated symptoms: Reports: syncope, weakness. Denies: chest pain, loss of appetite Treatments prior to arrival: IV fluid - Related Data Home Medications Medication Instructions Recorded Confirmed Clopidogrel [Plavix] 75 mg PO DAILY 05/11/15 03/26/17 Omeprazole [PriLOSEC] 20 mg PO BID 05/11/15 03/26/17 Rosuvastatin [Crestor] 40 mg PO HS 05/11/15 03/26/17 Sevelamer [Renvela] 800 mg PO TIDWM 05/11/15 03/26/17 Colestipol HCl [Colestid] 1 gm PO BID 06/12/15 03/26/17 Carvedilol 12.5 mg PO BID 10/28/15 03/26/17 amLODIPine [Norvasc] 5 mg PO DAILY 06/09/16 03/26/17 Calcium Acetate [Phos-LO] 667 mg PO TIDWM 09/06/16 03/26/17 Furosemide [Lasix] 80 mg PO BID 09/06/16 03/26/17 metOLazone [Zaroxolyn] 2.5 mg PO MOWEFR 09/06/16 03/26/17 Albuterol Sulfate [Ventolin Hfa] 2 puff IH Q4H PRN 12/29/16 03/26/17 Tiotropium [Spiriva] 1 puff IH DAILY 01/12/17 03/26/17 Insulin LISPRO [HumaLOG] 0 - 16 units SQ TIDAC 02/05/17 03/26/17 Sennosides/Docusate Sodium [Senna 1 tab PO DAILY 03/26/17 03/26/17 Plus] Previous Rx's Medication Instructions Recorded Gabapentin [Neurontin] 200 mg PO TID 30 Days 06/18/16 GuaiFENesin/Dextromethorphan 10 ml PO Q6HR udc 01/22/17 [Robitussin/Dm] Insulin Glargine,Hum.rec.anlog 43 unit SQ BID #0 02/10/17 [Lantus Solostar] OxyCODONE ER (12 HR) [OxyCONTIN] 20 mg PO Q12HR #14 tab.er.12h 02/10/17 Allergies Allergy/AdvReac Type Severity Reaction Status Date / Time No Known Allergies Allergy Verified 01/12/17 11:29 All systems ED: reviewed and negative except as stated. (Basic review obtained, somewhat limited secondary to patient's mental state) Constitutional: Denies: fever Cardiovascular: Denies: chest pain, palpitations Respiratory: Denies: cough, dyspnea Gastrointestinal: Denies: abdominal pain, nausea Genitourinary: Denies: urgency, dysuria Musculoskeletal: Denies: back pain, neck pain Neurological: Reports: as per HPI, weakness. Denies: numbness Endocrine: Denies: fatigue, heat or cold intolerance Past Medical History - Past Medical History PMF Narrative: PMH from records review CAD HTN DM CVA Nephrolithiasis Obesity Osteoarthritis DVT Palpitations PAD Ulcer Tobacco abuse COPD Hx of acute kidney injury PVD Hypercoagulable state hx of GI bleed Atherosclerotic cardiovascular disease Peripheral neuropathic disease CAD s/p CABG [facility] 05/2015 patent bypass FFR LAD 0.86 EF 65% CHF 12/2014 TTE normal EF mild LVH mild diastolic dysfunction mild AI COPD PNEUMONIA Source: old records reviewed Medical history: Reports: arthritis, asthma, atrial fibrillation, CHF, COPD, coronary artery disease, CVA, DVT, diabetes, dialysis, fibromyalgia, GERD, GI bleed, hyperlipidemia, hypertension, kidney stones, migraine, myocardial infarction, osteoporosis, peripheral artery disease, renal disease, other Surgical history: Reports: angioplasty/stent, appendectomy, cholecystectomy, coronary bypass (CABG), hysterectomy, knee replacement, other, IVC filter Psychiatric history: Reports: anxiety, depression, schizophrenia, previous psychiatric hospitalization, other [employer] SAL[employer] history: Reports: other - Social History Smoking Status: Former smoker Smokeless Tobacco Status: No Alcohol use: Reports: none Drug use: Reports: none Physical Exam Constitutional: obese female, vomitus on her shirt, appears older than stated age HEENT: NCAT, sclera anicteric, PERRLA bilaterally, normal external ears bilaterally, nasal septum nondeviated, average dentition, MMM Resp: normal chest inspection, CTA bilaterally, no resp distress CV: RRR, no m/g/r, +2 bilateral radial and dorsalis pedis pulses, left upper extremity with AV fistula good palpable thrill GI: normal inspection, Soft, NTND, BS present Back: normal inspection, no tenderness to palpation Neuro: A&O1 no gross upper or lower extremity deficits, cranial nerves grossly intact 2 through 12 bilaterally MSK: normal inspection, bilateral UE and LE with normal ROM Psych: normal mood, normal affec Skin: No rashes, skin warm, dry, intact Course Course Narrative: 62-year-old female with syncope during dialysis, old. Chest x-ray head CT, basic lab work with urinalysis blood cultures lactate, essentially though her blood pressure vital signs are stable, she does not meet criteria for sepsis I suspect this is a reaction to dialysis with syncope, likely patient will be admitted for further workup - Reevaluation(s) Reevaluation #1: Patient with mildly elevated troponin, labs consistent with ESRD, mild leukocytosis with her white count of 13, IV was placed, patient will be admitted to medicine service for further observation, pending admission ot hospitalist Riddhi MILES accepting Time: 14:33 Vital Signs O2 Sat by Pulse Oximetry 99 03/26/17 12:06 Temperature 98.6 F 03/26/17 12:09 Pulse Rate 90 03/26/17 12:09 Respiratory Rate 18 03/26/17 12:09 Blood Pressure 121/74 03/26/17 12:09 O2 Sat by Pulse Oximetry 99 03/26/17 12:09 Oxygen Delivery Oxygen Delivery Nasal Cannula Altered Mental Status - MDM Narrative Medical decision making narrative: 62-year-old female with syncope during dialysis, admitted to medicine service for further observation. DNR CCA - Differential Diagnosis Likely: alcoholic intoxication, altered mental status, hypoglycemia - Medical Records Medical records reviewed: Yes I reviewed the patient's medical records. - Lab Data Lab results reviewed: Yes I reviewed the patient's lab results. Result diagrams: 03/26/17 12:25 03/26/17 12:25 Lab Results 03/26/17 03/26/17 03/26/17 Range/Units 12:25 12:25 12:25 WBC 13.2 H (4.3-11.1) K/mcL RBC 4.27 (3.82-4.97) M/mcL Hgb 9.8 L (11.5-15.4) g/dL Hct 33.4 L (35.3-44.9) % MCV 78.2 L (83.0-100.0) fL MCH 23.0 L (28.0-33.3) pg MCHC 29.3 L (31.6-35.5) g/dL RDW 18.7 H (11.5-14.5) % Plt Count 296 (140-400) K/mcL MPV 9.3 L (9.4-12.4) fL Immature Gran % 4.6 H (0-4) % Seg Neutrophils % 79.3 % Lymphocytes % 11.5 % Monocytes % 3.0 % Eosinophils % 1.1 % Basophils % 0.5 % Neutrophils # 10.5 H (1.6-8.9) K/mcL Lymphocytes # 1.5 (0.6-4.6) K/mcL Monocytes # 0.4 (0.0-1.3) K/mcL Eosinophils # 0.2 (0.0-0.6) K/mcL Basophils # 0.1 (0.0-0.2) K/mcL PT 13.6 H (9.4-12.1) Seconds INR 1.3 APTT 32.6 (26.0-36.0) Seconds VBG pH (7.32-7.42) pH Units VBG pCO2 (41-51) mmHg VBG pO2 (25-40) mmHg VBG HCO3 (21-27) mEq/L Sodium 131 L (136-145) mEq/L Potassium 4.1 (3.5-4.5) mEq/L Chloride 93 L (98-109) mEq/L Carbon Dioxide 29 (19-29) mEq/L BUN 31 H (7-20) mg/dL Creatinine 3.63 H (0.57-1.11) mg/dL Est GFR ( Amer) 15 L (> 60) Est GFR (Non-Af Amer) 13 L (> 60) BUN/Creatinine Ratio 9 (6-26) Glucose 75 (70-99) mg/dL Calculated Osmolality 277 L (280-300) Lactic Acid (0.5-2.2) mmol/L Calcium 8.8 (8.6-10.8) mg/dL Total Bilirubin 0.4 (0.2-1.2) mg/dL Direct Bilirubin 0.3 (0.0-0.5) mg/dL Indirect Bilirubin 0.1 (0.0-1.2) mg/dL AST 19 (5-34) Units/L ALT 11 (0-55) Units/L Alkaline Phosphatase 168 H (38-126) Units/L Ammonia (18-72) mcmol/L Troponin I (0-0.03) ng/mL Serum Total Protein 7.0 (6.0-8.3) g/dL Albumin 2.2 L (3.5-5.0) g/dL Globulin 4.8 H (2.4-3.5) g/dL Albumin/Globulin Ratio 0.5 L (1.1-2.2) TSH 1.352 (0.350-4.840) mcIU/mL Ethyl Alcohol < 10 (0-10) mg/dL 06/16/17 06/16/17 06/16/17 Range/Units 12:25 12:25 12:25 WBC (4.3-11.1) K/mcL RBC (3.82-4.97) M/mcL Hgb (11.5-15.4) g/dL Hct (35.3-44.9) % MCV (83.0-100.0) fL MCH (28.0-33.3) pg MCHC (31.6-35.5) g/dL RDW (11.5-14.5) % Plt Count (140-400) K/mcL MPV (9.4-12.4) fL Immature Gran % (0-4) % Seg Neutrophils % % Lymphocytes % % Monocytes % % Eosinophils % % Basophils % % Neutrophils # (1.6-8.9) K/mcL Lymphocytes # (0.6-4.6) K/mcL Monocytes # (0.0-1.3) K/mcL Eosinophils # (0.0-0.6) K/mcL Basophils # (0.0-0.2) K/mcL PT (9.4-12.1) Seconds INR APTT (26.0-36.0) Seconds VBG pH 7.37 (7.32-7.42) pH Units VBG pCO2 51 (41-51) mmHg VBG pO2 40 (25-40) mmHg VBG HCO3 29.5 H (21-27) mEq/L Sodium (136-145) mEq/L Potassium (3.5-4.5) mEq/L Chloride (98-109) mEq/L Carbon Dioxide (19-29) mEq/L BUN (7-20) mg/dL Creatinine (0.57-1.11) mg/dL Est GFR ( Amer) (> 60) Est GFR (Non-Af Amer) (> 60) BUN/Creatinine Ratio (6-26) Glucose (70-99) mg/dL Calculated Osmolality (280-300) Lactic Acid (0.5-2.2) mmol/L Calcium (8.6-10.8) mg/dL Total Bilirubin (0.2-1.2) mg/dL Direct Bilirubin (0.0-0.5) mg/dL Indirect Bilirubin (0.0-1.2) mg/dL AST (5-34) Units/L ALT (0-55) Units/L Alkaline Phosphatase (38-126) Units/L Ammonia 16 L (18-72) mcmol/L Troponin I 0.04 H* (0-0.03) ng/mL Serum Total Protein (6.0-8.3) g/dL Albumin (3.5-5.0) g/dL Globulin (2.4-3.5) g/dL Albumin/Globulin Ratio (1.1-2.2) TSH (0.350-4.840) mcIU/mL Ethyl Alcohol (0-10) mg/dL 03/26/ Range/Units 12:25 WBC (4.3-11.1) K/mcL RBC (3.82-4.97) M/mcL Hgb (11.5-15.4) g/dL Hct (35.3-44.9) % MCV (83.0-100.0) fL MCH (28.0-33.3) pg MCHC (31.6-35.5) g/dL RDW (11.5-14.5) % Plt Count (140-400) K/mcL MPV (9.4-12.4) fL Immature Gran % (0-4) % Seg Neutrophils % % Lymphocytes % % Monocytes % % Eosinophils % % Basophils % % Neutrophils # (1.6-8.9) K/mcL Lymphocytes # (0.6-4.6) K/mcL Monocytes # (0.0-1.3) K/mcL Eosinophils # (0.0-0.6) K/mcL Basophils # (0.0-0.2) K/mcL PT (9.4-12.1) Seconds INR APTT (26.0-36.0) Seconds VBG pH (7.32-7.42) pH Units VBG pCO2 (41-51) mmHg VBG pO2 (25-40) mmHg VBG HCO3 (21-27) mEq/L Sodium (136-145) mEq/L Potassium (3.5-4.5) mEq/L Chloride (98-109) mEq/L Carbon Dioxide (19-29) mEq/L BUN (7-20) mg/dL Creatinine (0.57-1.11) mg/dL Est GFR ( Amer) (> 60) Est GFR (Non-Af Amer) (> 60) BUN/Creatinine Ratio (6-26) Glucose (70-99) mg/dL Calculated Osmolality (280-300) Lactic Acid 1.2 (0.5-2.2) mmol/L Calcium (8.6-10.8) mg/dL Total Bilirubin (0.2-1.2) mg/dL Direct Bilirubin (0.0-0.5) mg/dL Indirect Bilirubin (0.0-1.2) mg/dL AST (5-34) Units/L ALT (0-55) Units/L Alkaline Phosphatase (38-126) Units/L Ammonia (18-72) mcmol/L Troponin I (0-0.03) ng/mL Serum Total Protein (6.0-8.3) g/dL Albumin (3.5-5.0) g/dL Globulin (2.4-3.5) g/dL Albumin/Globulin Ratio (1.1-2.2) TSH (0.350-4.840) mcIU/mL Ethyl Alcohol (0-10) mg/dL - Radiology Data Radiology results reviewed: Yes I reviewed the patient's radiology results. Chest X-Ray 03/26/17 12:06 IMPRESSION: Cardiomegaly with pulmonary vascular congestion and mild interstitial edema D/ / Uriah Berman MD / Uriah Berman MD Interpreting Provider: Uriah Berman MD Head CT 03/26/17 12:06 IMPRESSION: No acute intracranial abnormality. D/ / Shahla Robles MD / Shahla Robles MD Interpreting Provider: Shahla Robles MD - EKG Data EKG attestation: Yes I reviewed and interpreted this EKG. EKG shows normal: sinus rhythm (101 bpm, sinus tachycardia, no ST segment elevations or depressions) Rate: normal Rhythm: NSR Justice/QRS: normal Interpretation: no acute changes TPA Checklist - LKW: 3-4.5 hrs Add. Warnings/Precautions Patient/family understanding: The patient/family members have been counseled and understood the risk, benefit , and alternatives of treatment.
[2017-03-26 12:39] LABS: Basophils # 0.1 K/mcL (0.0-0.2); Basophils % 0.5 %; Eosinophils # 0.2 K/mcL (0.0-0.6); Eosinophils % 1.1 %; Hematocrit 33.4 % (35.3-44.9); Hemoglobin 9.8 g/dL (11.5-15.4); Immature Granulocytes % 4.6 % (0-4); Lymphocytes # 1.5 K/mcL (0.6-4.6); Lymphocytes % 11.5 %; Mean Corpuscular HGB Conc 29.3 g/dL (31.6-35.5); Mean Corpuscular Volume 78.2 fL (83.0-100.0); Mean Platelet Volume 9.3 fL (9.4-12.4); Monocytes # 0.4 K/mcL (0.0-1.3); Neutrophils # 10.5 K/mcL (1.6-8.9); Platelet Count 296 K/mcL (140-400); Red Blood Count 4.27 M/mcL (3.82-4.97); Red Cell Distribution Width 18.7 % (11.5-14.5); Segmented Neutrophils % 79.3 %
[2017-03-26 12:43] LABS: VBG HCO3 29.5 mEq/L (21-27); VBG PH 7.37 pH Units (7.32-7.42)
[2017-03-26 12:48] LABS: INR 1.3; Prothrombin Time 13.6 Seconds (9.4-12.1)
--- NOTE | 2017-03-26 12:50 | Emergency Department Note ---
START Narrative - START START: I examined this patient and my medical decision-making was reviewed with the GASKET NOTCHER/PA/Advanced Practice Nurse/Resident Physician. I agree with the documented findings, disposition and treatment plan as described except to the extent set forth below. ED attending note: Patient seen with emergency medicine resident Dr. Moreno. Please see a copy of his note for details of the H&P, evaluation, management and disposition of this patient. We independently had [id number] contact with the patient Briefly: 62-year-old female dialysis-dependent sent from dialysis for "unresponsiveness". Patient was 45 minutes into her dialysis and blood pressure began to drop and she became more somnolent. He had an oral airway inserted had a liter of fluid placed into her via her AV shunt. And was sent here for further evaluation. Patient is DO NOT RESUSCITATE comfort care arrest. Patient is alert and oriented 1 or 2. Borderline hypotensive. Patient getting blood work EKG chest x-ray. Most likely this is "dialysis reaction". We try to contact the power of civil rights attorney which is the patient's son but were unable to do so by phone. Admission anticipated. Disposition pending. Provided 40 minutes of critical care services for this patient.
[2017-03-26 12:51] LABS: Activated Partial Thrombo Time 32.6 Seconds (26.0-36.0)
[2017-03-26 12:54] LABS: Blood Urea Nitrogen 31 mg/dL (7-20); Carbon Dioxide 29 mEq/L (19-29); Chloride 93 mEq/L (98-109); Potassium 4.1 mEq/L (3.5-4.5); Sodium 131 mEq/L (136-145)
[2017-03-26 12:55] LABS: Alanine Aminotransferase 11 Units/L (0-55); Albumin 2.2 g/dL (3.5-5.0); Albumin/Globulin Ratio 0.5 (1.1-2.2); Alkaline Phosphatase 168 Units/L (38-126); Aspartate Amino Transferase 19 Units/L (5-34); BUN/Creatinine Ratio 9 (6-26); Bilirubin,Direct 0.3 mg/dL (0.0-0.5); Bilirubin,Indirect 0.1 mg/dL (0.0-1.2); Bilirubin,Total 0.4 mg/dL (0.2-1.2); Calcium 8.8 mg/dL (8.6-10.8); Ethanol < 10 mg/dL (0-10); Globulin 4.8 g/dL (2.4-3.5); Glucose 75 mg/dL (70-99); Osmolality,Calculated 277 (280-300); eGFR For African Americans 15 (> 60); eGFR For Non-African Americans 13 (> 60)
[2017-03-26 13:15] LABS: Thyroid Stimulating Hormone 1.352 mcIU/mL (0.350-4.840)
[2017-03-26 15:21] LABS: Bilirubin,Urine Small (Negative); Blood,Urine Negative (Negative); Clarity,Urine Cloudy (Clear); Color,Urine Red (Yellow); Glucose,Urine (UA) Normal (Normal); Ketones,Urine Trace mg/dL (Negative); Leukocyte Esterase,Urine Moderate (Negative); Nitrite,Urine Negative (Negative); Protein,Urine 100 mg/dL (Neg-Trace); Specific Gravity,Urine 1.022 (1.010-1.025); Urobilinogen,Urine Normal (Normal)
[2017-03-26 15:24] LABS: Bacteria,Urine None Seen per hpf (None-Few); Hyaline Casts,Urine None Seen per lpf (None-Few); Squamous Epithelial Cell,Urine Many per lpf (None-Few); WBC,Urine 50-100 per hpf (0-3)
[2017-03-26 15:27] LABS: Amphetamine Screen,Urine Negative ng/mL (Cutoff=1000); Barbiturate Screen,Urine Negative ng/mL (Cutoff=200); Benzodiazepines Screen,Urine Negative ng/mL (Cutoff=200); Cannabinoid Screen,Urine Negative ng/mL (Cutoff = 50); Cocaine Screen,Urine Negative ng/mL (Cutoff= 300); Opiate Screen,Urine Positive ng/mL (Cutoff=300); Phencyclidine Screen,Urine Negative ng/mL (Cutoff=25)
[2017-03-26] MEDS ORDERED: Dextrose Gel 15 GM PO PRN ×2 (17:26)
[2017-03-26] MEDS ORDERED: D5% in Water 1,000 ML IVC PRN (17:26)
[2017-03-26] MEDS ORDERED: *HR* Dextrose 50 % in Water (Syg) 50 ML SYRINGE IVP PRN (17:26)
[2017-03-26] MEDS ORDERED: metOLazone 2.5 MG TABLET PO SCH (17:30)
--- NOTE | 2017-03-26 19:53 | Internal Med History&Physical ---
Date of Encounter: 03/26/17 Time of Encounter: 19:51 Assessment and Plan (1) Altered mental status Current visit: Yes Status: Acute 1 patient was having dialysis when she became somnolent and her blood pressure dropping. She was given IV fluids dialysis and oral airway was placed and she was bagged. It appears that her white count was 13.2 she was afebrile urine showed some moderate leuk esterase was sent for urine culture and blood cultures were obtained. CT of head was negative for any intracranial abnormality 2 we will maintain aspiration precautions 3 neurochecks Qualifiers: Altered mental status type: somnolence Qualified Code(s): R40.0 - Somnolence (2) Healing pressure ulcer stage II Current visit: No Status: Chronic 1 patient is followed by wound clinic for pressure ulcers on heels bilaterally. We will consult wound care nurse (3) Syncope and collapse Current visit: Yes Status: Acute 1 patient experienced episodes of syncope and collapse during dialysis with low blood pressure. Suspect this may be related to infectious process. She has a moderate amount of leuk esterase and her urine. Urine sent for culture blood cultures have been obtained we will initiate Zosyn (4) ESRD (end stage renal disease) on dialysis Current visit: Yes Status: Chronic 1 atrial fibrillation or receive 45 minutes of her dialysis today. We will consult nephrology for dialysis management 2 monitor intake and output daily weight 3 avoid nephrotoxins (5) Elevated troponin Current visit: No Status: Acute 1 initial troponin was 0.04 seconds 0.05 suspect this is related to demand ischemia. We will continue to monitor cycle troponins 2 continuous cardiac monitoring 3 consult cardiology as needed (6) CAD (coronary artery disease) Current visit: No Status: Chronic 1 we will continue with Plavix and statin, beta vera Qualifiers: Coronary Disease-Associated Artery/Lesion type: resighini artery [place] vs. transplanted heart: resighini heart Associated angina: without angina Qualified Code(s): I25.10 - Atherosclerotic heart disease of resighini coronary artery without angina pectoris (7) CHF (congestive heart failure) Current visit: No Status: Chronic 1 monitor intake and output daily weights 2 continue with dialysis per nephrology 3 continue with beta vera and Lasix Qualifiers: Congestive heart failure type: diastolic Congestive heart failure chronicity: chronic Qualified Code(s): I50.32 - Chronic diastolic (congestive ) heart failure (8) UTI (urinary tract infection) Current visit: Yes Status: Acute 1 . Urine culture- initiate Zosyn-adjust to sensitivity Qualifiers: Urinary tract infection type: site unspecified Hematuria presence: without hematuria Qualified Code(s): N39.0 - Urinary tract infection, site not specified (9) DVT prophylaxis Current visit: No Status: Acute Heparin subcutaneous Internal Medicine - H&P: HPI Chief complaint: AMS Admitted From: Emergency Dept Plans for Post Hospital Care: Transfer Long Term Facility History of present illness: Ms. Riley is a 62 year old female past medical history of CAD CHF COPD end- stage renal disease on dialysis Wednesday diabetes CABG in 2014. Patient is a resident of an [facility] she is a poor historian and information obtained from medical records and power of regulatory attorney. Patient was at dialysis center this a.m. she she had approximate 45 minutes of her dialysis when her blood pressure began to drop she became somewhat somnolent. Dialysis was stopped she was given 1 L IV fluids 911 was called. upon arrival of EMS dialysis team had already placed an oral airway and was bagging the patient. In route to the hospital patient began to vomit in the ambulance. Oral airway removed and patient suctioned per EMS. She arrives to the ER lethargic she rales to tactile stimuli she is oriented to herself. According to ER records lab work was obtained WBC 13.2. His blood gas pH 7.37 PCO2 51-45 her 29.5 chemistry sodium 131 BUN 31 creatinine 3.63 glucose 75 troponin was 0.[address] was negative for any endocrine abnormality chest x-ray showed cardiomegaly with interstitial edema and vascular congestion. Patient has been admitted for further workup evaluation. Presently on assessment patient is lethargic she arouses to verbal and tactile stimuli she opens her eyes to command she follows some simple commands she does not verbally respond heart sounds S1-S2 with no rubs or clicks counts murmurs noted she has some rhonchi in her lung tran. Abdomen soft and nontender extremity with wounds to feet bilaterally wrapped with dressing. I spoke with the patient's son and he Osvaldo power of regulatory attorney he states that patient becomes very lethargic and confused when she has a UTI. He states that she has been in her usual state of health. She presently resides in a ch[facility] due to frequent falls and is therefore strengthening. He states the patient is a DNR comfort care arrest DNI. She is hemodynamically stable at this time. I reviewed this case with Dr. Holliday Past Med Surg Social Fam HX - Past Medical History Medical history: arthritis, asthma, atrial fibrillation, CHF, COPD, coronary artery disease, CVA, DVT, diabetes, dialysis, fibromyalgia, GERD, GI bleed, hyperlipidemia, hypertension, kidney stones, migraine, myocardial infarction, osteoporosis, peripheral artery disease, renal disease, other Psychiatric history: anxiety, depression, schizophrenia, previous psychiatric hospitalization, other - Past Surgical History Surgical History: angioplasty/stent, appendectomy, cholecystectomy, coronary bypass (CABG), hysterectomy, knee replacement, other, IVC filter - Social History Smoking Status: Former smoker Smokeless Tobacco Status: No Alcohol use: none Drug use: none - Family History Father Living Status: Hx Family Cardiac Disorders: Yes Hx Family Endocrine Disorder: Yes Mother Living Status: Still Living Hx Family Respiratory Disorders: Yes (end stage copd) Internal Medicine - H&P: Meds Clopidogrel [Plavix] 75 mg PO DAILY 05/11/15 [History] Omeprazole [PriLOSEC] 20 mg PO BID 05/11/15 [History] Rosuvastatin [Crestor] 40 mg PO HS 05/11/15 [History] Sevelamer [Renvela] 800 mg PO TIDWM 05/11/15 [History] Colestipol HCl [Colestid] 1 gm PO BID 06/12/15 [History] Carvedilol 12.5 mg PO BID 10/28/15 [History] amLODIPine [Norvasc] 5 mg PO DAILY 06/09/16 [History] Gabapentin [Neurontin] 200 mg PO TID 30 Days 06/18/16 [Rx] Calcium Acetate [Phos-LO] 667 mg PO TIDWM 09/06/16 [History] Furosemide [Lasix] 80 mg PO BID 09/06/16 [History] metOLazone [Zaroxolyn] 2.5 mg PO MOWEFR 09/06/16 [History] Albuterol Sulfate [Ventolin Hfa] 2 puff IH Q4H PRN 12/29/16 [History] Tiotropium [Spiriva] 1 puff IH DAILY 01/12/17 [History] GuaiFENesin/Dextromethorphan [Robitussin/Dm] 10 ml PO Q6HR udc 01/22/17 [Rx] Insulin LISPRO [HumaLOG] 0 - 16 units SQ TIDAC 02/05/17 [History] Insulin Glargine,Hum.rec.anlog [Lantus Solostar] 43 unit SQ BID #0 02/10/17 [Rx ] OxyCODONE ER (12 HR) [OxyCONTIN] 20 mg PO Q12HR #14 tab.er.12h 02/10/17 [Rx] Sennosides/Docusate Sodium [Senna Plus] 1 tab PO DAILY 03/26/17 [History] Allergies No Known Allergies Allergy (Verified 01/12/17 11:29) ROS unobtainable: due to mental status All Systems PM: A 10-system review of systems was performed and is negative for pertinent findings except as documented above in the HPI. - Constitutional Vitals: Temp Pulse Resp BP Pulse Ox 97 F L 82 18 114/58 95 03/26/17 17:41 03/26/17 17:41 03/26/17 17:41 03/26/17 17:41 03/26/17 17:41 General appearance: Present: cooperative - Head Head exam: Present: atraumatic, normocephalic - Eye Eye exam: Present: PERRL, conjuntiva pink, sclera anicteric Pupils: Present: PERRL - Neck Neck exam general surgery: Present: supple, trachea midline. Absent: lymphadenopathy - Respiratory Respiratory exam: Present: rhonchi. Absent: accessory muscle use, rales, wheezes - Cardiovascular Cardiovascular exam: Present: RRR, +S1, +S2. Absent: diastolic murmur, gallop, rubs, systolic murmur - GI/Abdominal GI/Abdominal exam: Present: normal bowel sounds, soft, no peritoneal signs. Absent: distended, tenderness - Extremities Exam Extremities exam: Present: warm, radial pulses palpable and symetrical. Absent : calf tenderness, cyanotic, pedal edema - Neurological Exam Neurological exam: Present: altered - Skin Skin exam: Present: dry, intact Internal Med - H&P Results - Labs CBC & Chem 7: 03/26/17 12:25 03/26/17 12:25 Labs: Cardiac Enzymes 03/26/17 Range/Units 17:47 Troponin I 0.05 H* (0-0.03) ng/mL - Diagnostic Studies Other Images Additional comments: Chest X-Ray 03/26/17 12:06 IMPRESSION: Cardiomegaly with pulmonary vascular congestion and mild interstitial edema D/ / Uriah Berman MD / Uriah Berman MD Interpreting Provider: Uriah Berman MD Head CT 03/26/17 12:06 IMPRESSION: No acute intracranial abnormality. D/ / Shahla Robles MD / Shahla Robles MD Interpreting Provider: Shahla Robles MD
[2017-03-26] MEDS ORDERED: (Colestipol Hcl [Colestid] 1 GM) PO SCH (21:00)
[2017-03-26] MEDS: *HR* Heparin 5,000 UNIT/ML VIAL SQ SCH (21:30)
[2017-03-26] MEDS: Furosemide 40 MG TABLET PO SCH (21:30)
[2017-03-26] MEDS: Piperacillin/Tazobactam 3.375 GM in D5% in Water (Mini-Bag+) 100 ML IVPB SCH (21:34)
[2017-03-26] MEDS: Insulin LISPRO 300 UNITS/3 ML VIAL SQ SCH (23:02)
[2017-03-27] MEDS: Insulin LISPRO 300 UNITS/3 ML VIAL SQ SCH ×4 (00:22→18:06)
[2017-03-27 01:34] LABS: Basophils # 0.1 K/mcL (0.0-0.2); Basophils % 0.7 %; Eosinophils # 0.3 K/mcL (0.0-0.6); Eosinophils % 2.8 %; Hematocrit 27.2 % (35.3-44.9); Immature Granulocytes % 3.4 % (0-4); Lymphocytes # 2.2 K/mcL (0.6-4.6); Mean Corpuscular HGB Conc 29.8 g/dL (31.6-35.5); Mean Corpuscular Hemoglobin 23.5 pg (28.0-33.3); Mean Corpuscular Volume 78.8 fL (83.0-100.0); Mean Platelet Volume 9.7 fL (9.4-12.4); Monocytes # 0.8 K/mcL (0.0-1.3); Monocytes % 8.5 %; Platelet Count 244 K/mcL (140-400); Red Blood Count 3.45 M/mcL (3.82-4.97); Red Cell Distribution Width 18.6 % (11.5-14.5); Segmented Neutrophils % 61.6 %
[2017-03-27 01:46] LABS: Calcium 8.6 mg/dL (8.6-10.8); Magnesium 1.7 mg/dL (1.6-2.6); Potassium 4.1 mEq/L (3.5-4.5)
[2017-03-27 02:20] LABS: Hemoglobin 8.1 g/dL (11.5-15.4)
[2017-03-27 02:21] LABS: Anisocytosis 1+ (Not Present); Platelet Estimate Normal (Normal)
[2017-03-27] MEDS ORDERED: *HR* Morphine 2 MG/ML SYRINGE IVP ONE (03:11)
[2017-03-27] MEDS: *HR* Heparin 5,000 UNIT/ML VIAL SQ SCH ×2 (06:05→18:05)
--- NOTE | 2017-03-27 08:32 | Nephrology Consult Note ---
Date of Encounter: 03/28/17 Time of Encounter: 10:15 Assessment and Plan (1) ESRD (end stage renal disease) on dialysis Current Visit: Yes Status: Chronic Completed only 42 min of HD yesterday. Appears to be having intradialytic hypotension while at HD. Presented with acute encephalopathy. Suspecting infectious etiology but to help r/o any uremic or hyponatremic component to her AMS, I'll provide HD today. Will order midodrine to be given before HD to help prevent/minimize intradialytic hypotension. If needed could also provide IV Albumin while on HD to improve intravascular hemodynamics, which will allow for more HD and better fluid removal, thus helping address her edema. Thank you for consulting the [facility] group. (2) Intra-dialytic hypotension Current Visit: Yes Status: Acute (3) Acute metabolic encephalopathy Current Visit: Yes Status: Acute As per primary (4) Hyponatremia Current Visit: No Status: Acute (5) Anemia of chronic disease Current Visit: No Status: Chronic (6) Edema Current Visit: No Status: Chronic Qualifiers: Edema type: generalized Qualified Code(s): R60.1 - Generalized edema History of Present Illness - Reason for Consult Consult date: 03/27/17 end stage renal disease Requesting physician: Liz Gale - Chief Complaint AMS, Hx of ESRD, Intradialytic hypotension, Hyponatremia - History of Present Illness Lynnette Riley is a very pleasant 62 y/o obese WF with a pmh of HTN, ESRD on HD M/ W/F and et al who presented with AMS. Her primary director university is Dr. Rivers. She was not able to provide significant history, but I reviewed the outpatient [facility] EMR system including vital signs. Several of her primary previous HD treatments have led to intradialytic hypotension. She did not affirm N/V/D, F/C or CP. She dialyzes at [facility] in [place], [place]. Further history is limited by her AMS. Past Med Surg Social Fam HX - Past Medical History Medical history: arthritis, asthma, atrial fibrillation, CHF, COPD, coronary artery disease, CVA, DVT, diabetes, dialysis, fibromyalgia, GERD, GI bleed, hyperlipidemia, hypertension, kidney stones, migraine, myocardial infarction, osteoporosis, peripheral artery disease, renal disease, other Psychiatric history: anxiety, depression, schizophrenia, previous psychiatric hospitalization, other - Past Surgical History Surgical History: angioplasty/stent, appendectomy, cholecystectomy, coronary bypass (CABG), hysterectomy, knee replacement, other, IVC filter - Social History Smoking Status: Former smoker Smokeless Tobacco Status: No Alcohol use: none Drug use: none - Family History Father Living Status: Hx Family Cardiac Disorders: Yes Hx Family Endocrine Disorder: Yes Mother Living Status: Still Living Hx Family Respiratory Disorders: Yes (end stage copd) Medications and Allergies Clopidogrel [Plavix] 75 mg PO DAILY 05/11/15 [History] Omeprazole [PriLOSEC] 20 mg PO BID 05/11/15 [History] Rosuvastatin [Crestor] 40 mg PO HS 05/11/15 [History] Sevelamer [Renvela] 800 mg PO TIDWM 05/11/15 [History] Colestipol HCl [Colestid] 1 gm PO BID 06/12/15 [History] Carvedilol 12.5 mg PO BID 10/28/15 [History] amLODIPine [Norvasc] 5 mg PO DAILY 06/09/16 [History] Gabapentin [Neurontin] 200 mg PO TID 30 Days 06/18/16 [Rx] Calcium Acetate [Phos-LO] 667 mg PO TIDWM 09/06/16 [History] Furosemide [Lasix] 80 mg PO BID 09/06/16 [History] metOLazone [Zaroxolyn] 2.5 mg PO MOWEFR 09/06/16 [History] Albuterol Sulfate [Ventolin Hfa] 2 puff IH Q4H PRN 12/29/16 [History] Tiotropium [Spiriva] 1 puff IH DAILY 01/12/17 [History] GuaiFENesin/Dextromethorphan [Robitussin/Dm] 10 ml PO Q6HR udc 01/22/17 [Rx] Insulin LISPRO [HumaLOG] 0 - 16 units SQ TIDAC 02/05/17 [History] Insulin Glargine,Hum.rec.anlog [Lantus Solostar] 43 unit SQ BID #0 02/10/17 [Rx ] OxyCODONE ER (12 HR) [OxyCONTIN] 20 mg PO Q12HR #14 tab.er.12h 02/10/17 [Rx] Sennosides/Docusate Sodium [Senna Plus] 1 tab PO DAILY 03/26/17 [History] Allergies No Known Allergies Allergy (Verified 01/12/17 11:29) Review of Systems ROS unobtainable: due to mental status Exam - Vital Signs Vital signs: Initial Vital Signs Pulse Ox 99 03/26/17 12:06 Vital Signs - Last 8 Hours Temp Pulse Resp BP Pulse Ox 03/27/17 07:59 98 F 73 18 123/53 93 03/27/17 05:56 80 15 116/61 97 Intake and Output 03/26/17 03/27/17 03/27/17 23:59 07:59 15:59 Intake Total 100 / 100 Output Total 650 / 650 Balance -550 / -550 Intake: IV Fluids 100 / 100 Zosyn 3.375 GM In 100 / 100 Dextrose 5% (Minibag+) 100 ML 100 ML @ 25 mls/hr IVPB Q12H NATALIE Rx#: [id number] Output: Catheter 650 / 650 Other: Weight 120.4 kg Blood Glucose* 87 77 - General Appearance General appearance: well-developed, obese, chronically ill, fatigue, frail EENT: ATNC, PERRL, mucous membranes moist Neck: supple Respiratory: course breath sounds Cardiology: edema, regular rate, regular rhythm, normal S1, normal S2 - Dialysis Access Dialysis Vascular Access: Arteriovenous Graft thrill: Yes bruit: Yes Gastrointestinal: normoactive bowel sounds, no tenderness, no guarding Integumentary: warm and dry Neurologic: no asterixis, confused, disoriented Musculoskeletal: no deformities, no erythema, no cyanosis Psychiatric: mood/affect appropriate, cooperative Results - Lab Results 03/28/17 03:36 03/28/17 03:36 Most recent lab results Calcium 8.6 mg/dL (8.6-10.8) 03/27/17 01:10 Magnesium 1.7 mg/dL (1.6-2.6) 03/27/17 01:10 I reviewed the above data tran, including progress notes, outside medical records from [facility], labs, vitals, imaging, meds Consult Discharge Plan - Plan Referrals: Tristen Quintana MD [Primary Care Provider] -
[2017-03-27] MEDS ORDERED: 0.9 % Sodium Chloride 250 ML IVC PRN (08:36)
[2017-03-27] MEDS ORDERED: Albumin 25% 12.5gm/50mL 12.5 GM/50 ML IV.SOLN IVPB PRN (08:36)
[2017-03-27] MEDS ORDERED: amLODIPine 5 MG TABLET PO SCH (09:00)
[2017-03-27] MEDS ORDERED: Tiotropium 18 MCG inhalation IH SCH (09:00)
[2017-03-27] MEDS: Calcium Acetate 667 MG CAPSULE PO SCH ×3 (10:23→18:05)
--- NOTE | 2017-03-27 14:26 | Internal Med Progress Note ---
Date of Encounter: 03/27/17 Time of Encounter: 14:24 - Assessment and plan (1) Acute metabolic encephalopathy Current Visit: Yes Status: Acute Assessment and plan: secondary to UTI. treat infection. (2) UTI (urinary tract infection) Current Visit: Yes Status: Acute Assessment and plan: continue ZOsyn. cultures pending. Qualifiers: Urinary tract infection type: acute cystitis Hematuria presence: without hematuria Qualified Code(s): N30.00 - Acute cystitis without hematuria (3) Acute and chronic respiratory failure Current Visit: Yes Status: Acute Assessment and plan: secondary to acute diastolic heart failure. appreciate nephrology input. HD. continue home dose furosemide. Qualifiers: Respiratory failure complication: hypoxia Qualified Code(s): J96.21 - Acute and chronic respiratory failure with hypoxia (4) Diastolic dysfunction with chronic heart failure Current Visit: Yes Status: Acute Assessment and plan: acut nurys chronic diastolic hf. plan as above (5) CAD (coronary artery disease) Current Visit: No Status: Chronic Assessment and plan: stable. close monitor Qualifiers: Coronary Disease-Associated Artery/Lesion type: [place] artery [place] vs. transplanted heart: [place] heart Associated angina: without angina Qualified Code(s): I25.10 - Atherosclerotic heart disease of [place] coronary artery without angina pectoris (6) Diabetes Current Visit: No Status: Chronic Assessment and plan: iss. diabetic diet. adequate glucose levels. hold home dose lantus. 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 not infected. (9) HTN (hypertension) Current Visit: No Status: Chronic Assessment and plan: bp is controlled. holding home meds due to low normal BP Qualifiers: Hypertension type: essential hypertension Qualified Code(s): I10 - Essential (primary) hypertension (10) Morbid obesity with BMI of 40.0-44.9, adult Current Visit: No Status: Chronic Assessment and plan: bmi 41 (11) Tobacco abuse Current Visit: No Status: Chronic - Subjective Interval history: patient is confused. she denies any pain. - Constitutional Vitals: Temp Pulse Resp BP Pulse Ox 98.1 F 73 18 137/55 93 03/27/17 11:20 03/27/17 07:59 03/27/17 11:20 03/27/17 13:15 03/27/17 09:40 General appearance: Present: cooperative, pleasant, no acute distress, answers questions appropriately - Neck Neck exam general surgery: Present: supple, trachea midline. Absent: lymphadenopathy - Respiratory Respiratory exam: Present: rales (mild crackes bibasal), wheezes - Cardiovascular Cardiovascular exam: Present: RRR - GI/Abdominal GI/Abdominal exam: Present: normal bowel sounds, soft. Absent: distended, tenderness - Extremities Exam Extremities exam: Present: pedal edema - Neurological Exam Neurological exam: Present: alert, no focal deficits. Absent: facial droop, speech deficit - Skin Skin exam: Absent: intact (heels ulcers bilaterally with chronic statis skin changes in both feet) Internal Medicine: Result - Labs CBC & Chem 7: 03/27/17 01:10 03/27/17 01:10 Labs: Short CBC 03/27/17 Range/Units 01:10 WBC 9.7 (4.3-11.1) K/mcL Hgb 8.1 L D (11.5-15.4) g/dL Hct 27.2 L (35.3-44.9) % Plt Count 244 (140-400) K/mcL Neutrophils # 6.0 (1.6-8.9) K/mcL BMP 03/27/17 01:10 Sodium 130 L Potassium 4.1 Chloride 93 L Carbon Dioxide 26 BUN 35 H Creatinine 3.67 H Glucose 75 Calcium 8.6 Cardiac Enzymes 03/26/17 03/27/17 Range/Units 17:47 01:10 Troponin I 0.05 H* 0.03 (0-0.03) ng/mL - ABG Interpretation ABG results: PT/INR, D-dimer PT 13.6 Seconds (9.4-12.1) H 03/26/17 12:25 Consult Discharge Plan - Plan Referrals: Tristen Quintana MD [Primary Care Provider] -
[2017-03-27] MEDS: Piperacillin/Tazobactam 3.375 GM in D5% in Water (Mini-Bag+) 100 ML IVPB SCH ×2 (15:44→22:14)
[2017-03-27] MEDS: Furosemide 40 MG TABLET PO SCH ×2 (15:44→18:04)
[2017-03-27] MEDS ORDERED: Piperacillin/Tazobactam 3.375 GM in D5% in Water (Mini-Bag+) 100 ML IVPB SCH (20:38)
[2017-03-27] MEDS ORDERED: Ondansetron 4 MG/2 ML VIAL IVP ONE (21:41)
[2017-03-28] MEDS: Insulin LISPRO 300 UNITS/3 ML VIAL SQ SCH ×4 (00:51→18:20)
[2017-03-28] MEDS ORDERED: *HR* HYDROcodone/Acet 5/325 mg TABLET PO ONE (02:33)
[2017-03-28 04:10] LABS: Basophils # 0.1 K/mcL (0.0-0.2); Basophils % 0.5 %; Eosinophils # 0.2 K/mcL (0.0-0.6); Eosinophils % 1.6 %; Hematocrit 26.3 % (35.3-44.9); Hemoglobin 7.9 g/dL (11.5-15.4); Immature Granulocytes % 3.9 % (0-4); Lymphocytes # 1.5 K/mcL (0.6-4.6); Lymphocytes % 15.4 %; Mean Corpuscular Hemoglobin 23.4 pg (28.0-33.3); Mean Corpuscular Volume 77.8 fL (83.0-100.0); Monocytes # 0.7 K/mcL (0.0-1.3); Monocytes % 7.7 %; Neutrophils # 6.8 K/mcL (1.6-8.9); Platelet Count 235 K/mcL (140-400); Red Blood Count 3.38 M/mcL (3.82-4.97); Red Cell Distribution Width 18.7 % (11.5-14.5); Segmented Neutrophils % 70.9 %
[2017-03-28 04:22] LABS: Calcium 8.4 mg/dL (8.6-10.8); Magnesium 1.7 mg/dL (1.6-2.6); Potassium 4.4 mEq/L (3.5-4.5)
[2017-03-28] MEDS: *HR* Heparin 5,000 UNIT/ML VIAL SQ SCH ×2 (05:53→18:17)
[2017-03-28] MEDS: Piperacillin/Tazobactam 3.375 GM in D5% in Water (Mini-Bag+) 100 ML IVPB SCH (08:46)
[2017-03-28] MEDS: Furosemide 40 MG TABLET PO SCH ×2 (08:47→16:48)
[2017-03-28] MEDS: Calcium Acetate 667 MG CAPSULE PO SCH ×3 (08:47→16:48)
[2017-03-28] MEDS: *HR* OxyCODONE ER (12 HR) 10 MG TABLET PO SCH ×2 (08:58→18:17)
[2017-03-28] MEDS: Gabapentin 100 MG CAPSULE PO SCH ×3 (08:58→21:12)
[2017-03-28] MEDS: Insulin DETEMIR 100 UNIT/ML X5UNITS SQ SCH ×2 (09:45→21:12)
--- NOTE | 2017-03-28 11:47 | Internal Med Progress Note ---
Date of Encounter: 03/28/17 Time of Encounter: 10:15 - Assessment and plan (1) UTI (urinary tract infection) Current Visit: Yes Status: Acute Assessment and plan: blood and urine cultures are negative. stop Zosyn. start Ceftriaxone. close monitor. Qualifiers: Urinary tract infection type: acute cystitis Hematuria presence: without hematuria Qualified Code(s): N30.00 - Acute cystitis without hematuria (2) Acute metabolic encephalopathy Current Visit: Yes Status: Acute Assessment and plan: improved. secondary to infection and hypoglycemia. continue treating infection. (3) Acute and chronic respiratory failure Current Visit: Yes Status: Acute Assessment and plan: secondary to acute diastolic heart failure. CXR showed pulmonary vascular congestion. appreciate nephrology input. HD. continue home dose furosemide. add duonebs. Qualifiers: Respiratory failure complication: hypoxia Qualified Code(s): J96.21 - Acute and chronic respiratory failure with hypoxia (4) Diastolic dysfunction with chronic heart failure Current Visit: Yes Status: Acute Assessment and plan: acut nurys chronic diastolic hf. plan as above (5) CAD (coronary artery disease) Current Visit: No Status: Chronic Assessment and plan: stable. close monitor Qualifiers: Coronary Disease-Associated Artery/Lesion type: [place] artery [place] vs. transplanted heart: [place] heart Associated angina: without angina Qualified Code(s): I25.10 - Atherosclerotic heart disease of [place] coronary artery without angina pectoris (6) Diabetes Current Visit: No Status: Chronic Assessment and plan: fasting glucose is 190. iss. diabetic diet. patient is eating more. start low dose levemir. 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 not infected. (9) HTN (hypertension) Current Visit: No Status: Chronic Assessment and plan: bp is controlled. holding home meds due to low normal BP Qualifiers: Hypertension type: essential hypertension Qualified Code(s): I10 - Essential (primary) hypertension (10) Morbid obesity with BMI of 40.0-44.9, adult Current Visit: No Status: Chronic Assessment and plan: bmi 41 (11) Tobacco abuse Current Visit: No Status: Chronic - Subjective Interval history: patient is AOx3. She states she her blood sugars were in the 40s before she became very confused at home. she lives alone. she complains of arthritis pain on her knees. - Constitutional Vitals: Temp Pulse Resp BP Pulse Ox 98.6 F 88 18 120/68 92 03/28/17 06:47 03/28/17 06:47 03/28/17 06:47 03/28/17 06:47 03/28/17 09:00 General appearance: Present: cooperative, pleasant, no acute distress, answers questions appropriately - Neck Neck exam general surgery: Present: supple, trachea midline. Absent: lymphadenopathy - Respiratory Respiratory exam: Present: CTAB - Cardiovascular Cardiovascular exam: Present: RRR - GI/Abdominal GI/Abdominal exam: Present: normal bowel sounds, soft. Absent: distended, tenderness - Extremities Exam Extremities exam: Present: pedal edema - Neurological Exam Neurological exam: Present: alert, oriented X3, no focal deficits, strengths equal and symetr throughout. Absent: facial droop, speech deficit - Skin Skin exam: Absent: intact (bilateral heel ulcers, not infected. ) Internal Medicine: Result - Labs CBC & Chem 7: 03/28/17 03:36 03/28/17 03:36 Labs: Short CBC 03/28/17 Range/Units 03:36 WBC 9.5 (4.3-11.1) K/mcL Hgb 7.9 L (11.5-15.4) g/dL Hct 26.3 L (35.3-44.9) % Plt Count 235 (140-400) K/mcL Neutrophils # 6.8 (1.6-8.9) K/mcL BMP 03/28/17 03:36 Sodium 133 L Potassium 4.4 Chloride 97 L Carbon Dioxide 27 BUN 26 H Creatinine 2.82 H Glucose 224 H Calcium 8.4 L - ABG Interpretation ABG results: PT/INR, D-dimer PT 13.6 Seconds (9.4-12.1) H 03/26/17 12:25 Consult Discharge Plan - Plan Referrals: Tristen Quintana MD [Primary Care Provider] -
[2017-03-28] MEDS: Ipratropium/Albuterol Neb 3 ML IH SCH ×3 (16:21→21:26)
[2017-03-29] MEDS: Insulin LISPRO 300 UNITS/3 ML VIAL SQ SCH ×4 (00:15→21:44)
[2017-03-29] MEDS ORDERED: *HR* HYDROmorphone (PF) 1 MG/ML SYRINGE IVP ONE (03:17)
[2017-03-29 04:29] LABS: Basophils # 0.1 K/mcL (0.0-0.2); Basophils % 0.7 %; Eosinophils # 0.3 K/mcL (0.0-0.6); Eosinophils % 3.6 %; Hematocrit 26.8 % (35.3-44.9); Hemoglobin 7.9 g/dL (11.5-15.4); Immature Granulocytes % 3.7 % (0-4); Lymphocytes % 22.9 %; Mean Corpuscular HGB Conc 29.5 g/dL (31.6-35.5); Mean Corpuscular Hemoglobin 23.7 pg (28.0-33.3); Mean Corpuscular Volume 80.2 fL (83.0-100.0); Mean Platelet Volume 9.9 fL (9.4-12.4); Monocytes # 0.7 K/mcL (0.0-1.3); Monocytes % 7.9 %; Neutrophils # 5.3 K/mcL (1.6-8.9); Platelet Count 214 K/mcL (140-400); Red Blood Count 3.34 M/mcL (3.82-4.97); Segmented Neutrophils % 61.2 %
[2017-03-29] MEDS: Ipratropium/Albuterol Neb 3 ML IH SCH ×4 (04:33→21:19)
[2017-03-29 04:48] LABS: Magnesium 1.7 mg/dL (1.6-2.6); Potassium 4.2 mEq/L (3.5-4.5)
[2017-03-29] MEDS: *HR* OxyCODONE ER (12 HR) 10 MG TABLET PO SCH ×2 (06:40→18:37)
[2017-03-29] MEDS: *HR* Heparin 5,000 UNIT/ML VIAL SQ SCH ×2 (06:40→18:47)
[2017-03-29] MEDS ORDERED: 0.9 % Sodium Chloride 250 ML IVC PRN (09:11)
[2017-03-29] MEDS ORDERED: 0.9 % Sodium Chloride 1,000 ML PRIME SCH (09:15)
[2017-03-29] MEDS: Insulin DETEMIR 100 UNIT/ML X5UNITS SQ SCH (09:37)
[2017-03-29] MEDS: Gabapentin 100 MG CAPSULE PO SCH ×3 (09:39→21:45)
[2017-03-29] MEDS: Furosemide 40 MG TABLET PO SCH ×2 (09:39→18:37)
[2017-03-29] MEDS: Calcium Acetate 667 MG CAPSULE PO SCH ×3 (09:40→18:37)
[2017-03-29] MEDS ORDERED: 0.9 % Sodium Chloride 2,000 ML ONE (10:40)
--- NOTE | 2017-03-29 15:01 | Electrocardiograph Report ---
[place] [id number] Test Date: 2017-03-26 Pat Name: Lynnette Riley Department: 105 Room: 2NE24 Gender: F Director News: : 1955 Requested By: Yuniel Moreno Order Number: [id number] Reading MD: Edmundo Cardenas MD Measurements Intervals [place] Rate: 101 P: MN: 0 QRS: 59 QRSD: 89 T: 71 QT: 350 QTc: 408 Interpretive Statements ATRIAL FIBRILLATION Electronically Signed On 03-29-2017 14:59:47 EDT by Edmundo Cardenas MD
--- NOTE | 2017-03-29 16:07 | Internal Med Progress Note ---
Date of Encounter: 03/29/17 Time of Encounter: 16:05 - Assessment and plan (1) UTI (urinary tract infection) Current Visit: Yes Status: Acute Assessment and plan: 03/28: blood and urine cultures are negative. stop Zosyn. start Ceftriaxone. clinically improved. continue ceftriaxone, changed to levaquin at discharge. Qualifiers: Urinary tract infection type: acute cystitis Hematuria presence: without hematuria Qualified Code(s): N30.00 - Acute cystitis without hematuria (2) Acute metabolic encephalopathy Current Visit: Yes Status: Acute Assessment and plan: improved. secondary to infection and hypoglycemia. continue treating infection. (3) Acute and chronic respiratory failure Current Visit: Yes Status: Acute Assessment and plan: secondary to acute diastolic heart failure. CXR showed pulmonary vascular congestion. Required 4 L NC on admission. 03/29: Improved. appreciate nephrology input. continue HD, home dose furosemide, duonebs and fluid restriction. Qualifiers: Respiratory failure complication: hypoxia Qualified Code(s): J96.21 - Acute and chronic respiratory failure with hypoxia (4) Diabetes Current Visit: No Status: Chronic Assessment and plan: pt takes lantus 43 units at home. 03/28: fasting glucose was 190 and levemir 10 units bid was added. 03/29: fasting glucose is 105. stop levemir. continue iss. diabetic diet. 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 plan as above (6) CAD (coronary artery disease) Current Visit: No Status: Chronic Assessment and plan: stable. close monitor Qualifiers: Coronary Disease-Associated Artery/Lesion type: [place] artery [place] vs. transplanted heart: [place] heart Associated angina: without angina Qualified Code(s): I25.10 - Atherosclerotic heart disease of [place] coronary artery without angina pectoris (7) ESRD on hemodialysis Current Visit: No Status: Chronic Assessment and plan: appreciate nephrology input (8) Healing pressure ulcer stage II Current Visit: No Status: Chronic Assessment and plan: wound care consulted. not infected. (9) HTN (hypertension) Current Visit: No Status: Chronic Assessment and plan: bp is controlled. holding home meds due to low normal BP Qualifiers: Hypertension type: essential hypertension Qualified Code(s): I10 - Essential (primary) hypertension (10) Morbid obesity with BMI of 40.0-44.9, adult Current Visit: No Status: Chronic Assessment and plan: bmi 41 (11) Tobacco abuse Current Visit: No Status: Chronic - Subjective Interval history: patient is AOx3. She does not want to go to [facility]. - Constitutional Vitals: Temp Pulse Resp BP Pulse Ox 98.4 F 80 18 96/48 98 03/29/17 15:27 03/29/17 15:27 03/29/17 15:27 03/29/17 15:27 03/29/17 15:27 General appearance: Present: cooperative, pleasant, no acute distress, answers questions appropriately - Extremities Exam Extremities exam: Present: pedal edema - Back Exam Back exam: Absent: CVA tenderness (L), CVA tenderness (R) - Neurological Exam Neurological exam: Present: alert, oriented X3, no focal deficits, strengths equal and symetr throughout. Absent: facial droop, speech deficit - Skin Skin exam: Absent: intact (bilateral heel ulcers, not infected) Internal Medicine: Result - Labs CBC & Chem 7: 03/29/17 03:48 03/29/17 03:48 Labs: Short CBC 03/29/17 Range/Units 03:48 WBC 8.6 (4.3-11.1) K/mcL Hgb 7.9 L (11.5-15.4) g/dL Hct 26.8 L (35.3-44.9) % Plt Count 214 (140-400) K/mcL Neutrophils # 5.3 (1.6-8.9) K/mcL BMP 03/29/17 03:48 Sodium 134 L Potassium 4.2 Chloride 99 Carbon Dioxide 24 BUN 29 H Creatinine 3.11 H Glucose 103 H Calcium 9.0 - ABG Interpretation ABG results: PT/INR, D-dimer PT 13.6 Seconds (9.4-12.1) H 03/26/17 12:25 Consult Discharge Plan - Plan Referrals: Tristen Quintana MD [Primary Care Provider] -
--- NOTE | 2017-03-29 16:59 | Nephrology Progress Note ---
Date of Encounter: 03/29/17 Time of Encounter: 16:57 - Assessment and Plan (1) ESRD (end stage renal disease) on dialysis Current Visit: Yes Status: Chronic HD MWF. Continue dialysis. (2) Anemia Current Visit: No Status: Acute Monitor. Will start KAITLIN. Qualifiers: Qualified Code(s): D64.9 - Anemia, unspecified Subjective Principal diagnosis: ESRD Interval history: Patient seen on HD. No new complaint. Ros otherwise stable or negative. Objective - Vital Signs Vital signs: Vital Signs Temp Pulse Resp BP Pulse Ox 03/29/17 15:27 98.4 F 80 18 96/48 98 03/29/17 14:34 98.7 F 22 112/66 03/29/17 13:55 100/49 03/29/17 13:40 107/59 03/29/17 13:25 125/59 03/29/17 13:10 125/56 03/29/17 12:55 123/57 03/29/17 12:40 114/52 03/29/17 12:25 120/58 03/29/17 12:10 107/63 03/29/17 11:55 129/51 03/29/17 11:40 137/52 03/29/17 11:25 135/50 03/29/17 11:10 125/56 03/29/17 10:55 127/61 03/29/17 10:40 124/56 03/29/17 10:39 98 03/29/17 10:25 98.1 F 20 111/51 03/29/17 08:00 98 03/29/17 06:15 98.2 F 86 16 100/61 98 03/29/17 05:42 99.0 F 72 16 96 03/29/17 00:24 98.8 F 79 17 132/67 96 03/28/17 21:28 16 98 03/28/17 20:41 98.9 F 73 19 115/83 96 Intake and Output 03/29/17 03/29/17 03/29/17 07:59 15:59 23:59 Intake Total 960 / 960 Output Total 775 / 775 2675 / 2675 Balance -775 / -775 -1715 / -1715 Intake: Oral 360 / 360 Intake, Rinseback and 600 / 600 Flushes Output: Urine 0 / 0 Total Dialysis (HD) 2600 / 2600 Output Straight Cath 125 / 125 Catheter 650 / 650 75 / 75 Other: Meal Lunch Percent of Meal Consumed 25% # Voids 1 Weight 121.7 kg Blood Glucose* 105 Hemodialysis Net Fluid 2000 Removed (mL) Patient Weight 03/29/17 23:59 Weight 121.7 kg - General Appearance General appearance: Present: well-developed, well-nourished, obese EENT: Present: ATNC Respiratory: Present: clear Cardiology: Present: edema, regular rate Gastrointestinal: Present: no tenderness, no guarding Integumentary: Present: warm and dry Neurologic: Present: alert and oriented x3 Musculoskeletal: Present: no cyanosis Psychiatric: Present: mood/affect appropriate - Lab 03/29/17 03:48 03/29/17 03:48 Most recent lab results Calcium 9.0 mg/dL (8.6-10.8) 03/29/17 03:48 Magnesium 1.7 mg/dL (1.6-2.6) 03/29/17 03:48 Consult Discharge Plan - Plan Referrals: Tristen Quintana MD [Primary Care Provider] -
[2017-03-29] MEDS ORDERED: levoFLOXacin 500 MG TABLET PO ONE (21:00)
[2017-03-30] MEDS: Ipratropium/Albuterol Neb 3 ML IH SCH ×4 (04:17→21:16)
[2017-03-30] MEDS: *HR* Heparin 5,000 UNIT/ML VIAL SQ SCH ×2 (06:30→17:56)
[2017-03-30] MEDS: *HR* OxyCODONE ER (12 HR) 10 MG TABLET PO SCH ×2 (06:30→17:56)
[2017-03-30 07:48] LABS: Basophils # 0.1 K/mcL (0.0-0.2); Basophils % 0.9 %; Eosinophils # 0.3 K/mcL (0.0-0.6); Eosinophils % 3.2 %; Hematocrit 28.2 % (35.3-44.9); Hemoglobin 8.3 g/dL (11.5-15.4); Immature Granulocytes % 4.5 % (0-4); Lymphocytes % 19.8 %; Mean Corpuscular HGB Conc 29.4 g/dL (31.6-35.5); Mean Corpuscular Hemoglobin 23.1 pg (28.0-33.3); Mean Corpuscular Volume 78.6 fL (83.0-100.0); Mean Platelet Volume 10.1 fL (9.4-12.4); Monocytes # 0.6 K/mcL (0.0-1.3); Monocytes % 7.8 %; Platelet Count 232 K/mcL (140-400); Red Blood Count 3.59 M/mcL (3.82-4.97); Red Cell Distribution Width 18.7 % (11.5-14.5); Segmented Neutrophils % 63.8 %
[2017-03-30] MEDS: Insulin LISPRO 300 UNITS/3 ML VIAL SQ SCH ×4 (08:05→22:34)
[2017-03-30] MEDS: Gabapentin 100 MG CAPSULE PO SCH ×3 (08:06→22:35)
[2017-03-30] MEDS: Calcium Acetate 667 MG CAPSULE PO SCH ×3 (08:06→17:56)
[2017-03-30] MEDS: Furosemide 40 MG TABLET PO SCH ×2 (08:06→17:54)
[2017-03-30 08:18] LABS: Lymphocytes # 1.5 K/mcL (0.6-4.6)
--- NOTE | 2017-03-30 09:27 | Discharge Summary ---
<You Márquez - Last Filed: 03/30/17 09:24> Date of Encounter: 03/30/17 Time of Encounter: 09:25 - Discharge Diagnosis (1) UTI (urinary tract infection) Priority: Primary Status: Acute Qualifiers: Urinary tract infection type: site unspecified Hematuria presence: without hematuria Qualified Code(s): N39.0 - Urinary tract infection, site not specified (2) Acute metabolic encephalopathy Priority: Primary Status: Acute (3) Acute and chronic respiratory failure Priority: Primary Status: Acute Qualifiers: Respiratory failure complication: hypoxia Qualified Code(s): J96.21 - Acute and chronic respiratory failure with hypoxia (4) ESRD (end stage renal disease) Priority: Secondary Status: Chronic (5) CAD (coronary artery disease) Priority: Secondary Status: Chronic Qualifiers: Coronary Disease-Associated Artery/Lesion type: bypass graft [place] vs. transplanted heart: [place] heart Associated angina: without angina Qualified Code(s): I25.810 - Atherosclerosis of coronary artery bypass graft(s) without angina pectoris (6) Anemia Priority: Secondary Status: Chronic Qualifiers: Anemia type: other cause Other causes of anemia: chronic disease, kidney Qualified Code(s): N18.9 - Chronic kidney disease, unspecified; D63.1 - Anemia in chronic kidney disease (7) Diabetes Priority: Secondary Status: Chronic Qualifiers: Diabetes mellitus type: type 2 Diabetes mellitus complication status: with kidney complications Diabetes mellitus complication detail: with chronic kidney disease Diabetes mellitus cartoonist special effects insulin use: with cartoonist special effects use Chronic kidney disease stage: on chronic dialysis Qualified Code(s): E11.22 - Type 2 diabetes mellitus with diabetic chronic kidney disease; N18.6 - End stage renal disease; Z79.4 - USP (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 of insulin; Z99.2 - Dependence on renal dialysis (8) Healing pressure ulcer stage II Priority: Secondary Status: Chronic (9) Diastolic dysfunction with chronic heart failure Priority: Secondary Status: Chronic - Discharge Medications Prescriptions: OxyCODONE ER (12 HR) [OxyCONTIN] 20 mg PO Q12HR #14 tab.er.12h Darbepoetin [Aranesp] 40 mcg SQ QWEEK #4 syringe levoFLOXacin [Levaquin] 500 mg PO DAILY #1 tablet Home Medications: Clopidogrel [Plavix] 75 mg PO DAILY 05/11/15 [History] Omeprazole [PriLOSEC] 20 mg PO BID 05/11/15 [History] Rosuvastatin [Crestor] 40 mg PO HS 05/11/15 [History] Sevelamer [Renvela] 800 mg PO TIDWM 05/11/15 [History] Colestipol HCl [Colestid] 1 gm PO BID 06/12/15 [History] Carvedilol 12.5 mg PO BID 10/28/15 [History] amLODIPine [Norvasc] 5 mg PO DAILY 06/09/16 [History] Gabapentin [Neurontin] 200 mg PO TID 30 Days 06/18/16 [Rx] Calcium Acetate [Phos-LO] 667 mg PO TIDWM 09/06/16 [History] Furosemide [Lasix] 80 mg PO BID 09/06/16 [History] metOLazone [Zaroxolyn] 2.5 mg PO MOWEFR 09/06/16 [History] Albuterol Sulfate [Ventolin Hfa] 2 puff IH Q4H PRN 12/29/16 [History] Tiotropium [Spiriva] 1 puff IH DAILY 01/12/17 [History] GuaiFENesin/Dextromethorphan [Robitussin/Dm] 10 ml PO Q6HR udc 01/22/17 [Rx] Insulin LISPRO [HumaLOG] 0 - 16 units SQ TIDAC 02/05/17 [History] Insulin Glargine,Hum.rec.anlog [Lantus Solostar] 43 unit SQ BID #0 02/10/17 [Rx ] Sennosides/Docusate Sodium [Senna Plus] 1 tab PO DAILY 03/26/17 [History] Darbepoetin [Aranesp] 40 mcg SQ QWEEK #4 syringe 03/30/17 [Rx] OxyCODONE ER (12 HR) [OxyCONTIN] 20 mg PO Q12HR #14 tab.er.12h 03/30/17 [Rx] levoFLOXacin [Levaquin] 500 mg PO DAILY #1 tablet 03/30/17 [Rx] Allergies/Adverse Reactions: Allergies No Known Allergies Allergy (Verified 01/12/17 11:29) Date of admission: 03/26/17 17:13 Primary care physician: Tristen Quintana MD Consults: 03/26/17 17:37 Consult to Wound Care [CONS] Routine Reason for Consult: patient has pressure ulcers to bilateral heels Call Completed: No 03/27/17 00:05 Consult to Nephrology [CONS] Routine Consulting Provider: Kidney Olivia/MARCO/SWAPNA/MILLIE Reason for Consult: ESRD- HD Time Notified: 00:05 Call Completed: No 03/27/17 07:43 Consult to Speech Therapy [CONS] Routine Comment: Evaluate, develop and implement POC Reason for Consult: failed bedside swallow eval Call Completed: Yes 03/27/17 08:45 Consult to Dialysis [CONS] ONCE 03/28/17 11:43 Consult to Occupational Therapy [CONS] Routine Comment: Evaluate, develop and implement POC Reason for Consult: imbalance Consult to Physical Therapy [CONS] Routine Comment: Evaluate, develop and implement POC Reason for Consult: imbalance 03/29/17 07:13 Consult to Hardware Engineer [CONS] Routine Reason for SW Consult: From signature, should return on DC 03/29/17 09:15 Consult to Dialysis [CONS] ONCE Discharging clinician: You Márquez Anticipated date of discharge: 03/30/17 - Patient Status Disposition: Transfer SNF Condition: Fair Functional capacity at discharge: wheelchair bound Overall status at discharge: patient is back to baseline - Discharge Instructions Instructions: Urinary Tract Infection in Women (DC) Follow Up With: Tristen Quintana MD [Primary Care Provider] - Additional Instructions: Please follow up with her primary care physician. Please restart her home medications. Please take one more dose of your antibiotic on Wednesday, March 31. Please start darbepoetin 40 g subcutaneous injection weekly on April 05. Please continue with her regular scheduled dialysis sessions. Please return for any new or worsening symptoms. - Diet and Activity Activity: increase activity as tolerated, other (Please ambulate with assist or use a wheelchair.) Diet: advance to your usual diet Interval History: Patient seen and examined at bedside. Patient states that he feels pretty good today. She has no complaints. Hospital course: Ms. Riley is a 62 year old female with history of type 2 diabetes, ESRD on dialysis presented with altered mental status. Patient was in dialysis when she became lethargic and somnolent and had low blood pressure. Workup in the emergency department revealed a positive urinalysis the patient was initiated on antibiotics. Patient recovered rapidly with minimal fluid administration antibiotics. Patient received dialysis as per her regular schedule. Urine culture did not reveal any causative organism however course of antibiotics will be completed. The patient will be discharged to signature in stable condition. - Time Spent with Patient Total time spent providing and/or coordinating discharge services: - Constitutional Vitals: Temp Pulse Resp BP Pulse Ox 98.0 F 68 18 142/59 100 03/30/17 07:32 03/30/17 07:32 03/30/17 07:32 03/30/17 07:32 03/30/17 08:15 General appearance: Present: cooperative, pleasant, no acute distress, answers questions appropriately - Respiratory Respiratory exam: Present: CTAB. Absent: rales, rhonchi, wheezes - Cardiovascular Cardiovascular exam: Present: RRR. Absent: gallop, rubs, systolic murmur - GI/Abdominal GI/Abdominal exam: Present: normal bowel sounds, soft. Absent: distended, tenderness - Extremities Exam Additional comments: Dressings applied to heels bilaterally, dressings are clean dry and intact. - Neurological Exam Neurological exam: Present: alert, CN II-XII intact, oriented X3, no focal deficits <Gladys,Sadiq P - Last Filed: 03/30/17 16:38> Date of Encounter: 03/30/17 Date of admission: 03/26/17 17:13 Primary care physician: Tristen Quintana MD Consults: 03/26/17 17:37 Consult to Wound Care [CONS] Routine Reason for Consult: patient has pressure ulcers to bilateral heels Call Completed: No 03/27/17 00:05 Consult to Nephrology [CONS] Routine Consulting Provider: Yong Baker/MARCO/SWAPNA/MILLIE Reason for Consult: ESRD- HD Time Notified: 00:05 Call Completed: No 03/27/17 07:43 Consult to Speech Therapy [CONS] Routine Comment: Evaluate, develop and implement POC Reason for Consult: failed bedside swallow eval Call Completed: Yes 03/27/17 08:45 Consult to Dialysis [CONS] ONCE 03/28/17 11:43 Consult to Occupational Therapy [CONS] Routine Comment: Evaluate, develop and implement POC Reason for Consult: imbalance Consult to Physical Therapy [CONS] Routine Comment: Evaluate, develop and implement POC Reason for Consult: imbalance 03/29/17 07:13 Consult to Hardware Engineer [CONS] Routine Reason for SW Consult: From signature, should return on DC 03/29/17 09:15 Consult to Dialysis [CONS] ONCE Hospital course: Ms. Riley is a 62 year old female - Time Spent with Patient Total time spent providing and/or coordinating discharge services: - Constitutional Vitals: Temp Pulse Resp BP Pulse Ox 97.9 F 77 18 146/65 95 03/30/17 16:16 03/30/17 16:16 03/30/17 16:16 03/30/17 16:16 03/30/17 16:16 - Attending Attestation I examined this patient and my medical decision-making was reviewed with the TIME CLERK/PA/Advanced Practice Nurse/Resident Physician. I agree with the documented findings, disposition and treatment plan as described except to the extent set forth below. spoke o PCp for outpatient EGD/Colonoscopy in view of anemia
[2017-03-30 09:51] LABS: Calcium 8.8 mg/dL (8.6-10.8); Magnesium 1.5 mg/dL (1.6-2.6); Potassium 4.2 mEq/L (3.5-4.5)
--- NOTE | 2017-03-30 09:55 | Physician Discharge Referral ---
<You Márquez - Last Filed: 03/30/17 09:53> [facility] Referral Info Transfer To: Signature Provider in Charge after Transfer: PCP Institutional Level of Care: Skilled - Diagnosis (1) UTI (urinary tract infection) Priority: Primary Status: Acute (2) Acute metabolic encephalopathy Priority: Primary Status: Acute (3) Acute and chronic respiratory failure Priority: Primary Status: Acute (4) ESRD (end stage renal disease) Priority: Secondary Status: Chronic (5) CAD (coronary artery disease) Priority: Secondary Status: Chronic (6) Anemia Priority: Secondary Status: Chronic (7) Diabetes Priority: Secondary Status: Chronic (8) Healing pressure ulcer stage II Priority: Secondary Status: Chronic (9) Diastolic dysfunction with chronic heart failure Priority: Secondary Status: Chronic Expected Duration of Placement: 1 week Prognosis: Fair Aware of Diagnosis: Patient Aware of Prognosis: Patient - Transfer Medications Prescriptions: OxyCODONE ER (12 HR) [OxyCONTIN] 20 mg PO Q12HR #14 tab.er.12h Darbepoetin [Aranesp] 40 mcg SQ QWEEK #4 syringe levoFLOXacin [Levaquin] 500 mg PO DAILY #1 tablet Home Medications: Clopidogrel [Plavix] 75 mg PO DAILY 05/11/15 [History] Omeprazole [PriLOSEC] 20 mg PO BID 05/11/15 [History] Rosuvastatin [Crestor] 40 mg PO HS 05/11/15 [History] Sevelamer [Renvela] 800 mg PO TIDWM 05/11/15 [History] Colestipol HCl [Colestid] 1 gm PO BID 06/12/15 [History] Carvedilol 12.5 mg PO BID 10/28/15 [History] amLODIPine [Norvasc] 5 mg PO DAILY 06/09/16 [History] Gabapentin [Neurontin] 200 mg PO TID 30 Days 06/18/16 [Rx] Calcium Acetate [Phos-LO] 667 mg PO TIDWM 09/06/16 [History] Furosemide [Lasix] 80 mg PO BID 09/06/16 [History] metOLazone [Zaroxolyn] 2.5 mg PO MOWEFR 09/06/16 [History] Albuterol Sulfate [Ventolin Hfa] 2 puff IH Q4H PRN 12/29/16 [History] Tiotropium [Spiriva] 1 puff IH DAILY 01/12/17 [History] GuaiFENesin/Dextromethorphan [Robitussin/Dm] 10 ml PO Q6HR udc 01/22/17 [Rx] Insulin LISPRO [HumaLOG] 0 - 16 units SQ TIDAC 02/05/17 [History] Insulin Glargine,Hum.rec.anlog [Lantus Solostar] 43 unit SQ BID #0 02/10/17 [Rx ] Sennosides/Docusate Sodium [Senna Plus] 1 tab PO DAILY 03/26/17 [History] Darbepoetin [Aranesp] 40 mcg SQ QWEEK #4 syringe 03/30/17 [Rx] OxyCODONE ER (12 HR) [OxyCONTIN] 20 mg PO Q12HR #14 tab.er.12h 03/30/17 [Rx] levoFLOXacin [Levaquin] 500 mg PO DAILY #1 tablet 03/30/17 [Rx] Allergies/Adverse Reactions: Allergies No Known Allergies Allergy (Verified 01/12/17 11:29) - Respiratory Orders Oxygen / L per min (2) Smoking Cessation: Smoking cessation has been advised. For more information, call the [facility] Line at 1-213-RFLK-NOW. - Lab Orders Lab Orders: CBC (1 week) - Ancillary Orders May use pressure relief devices daily prn - Advance Directives Code Status: DNR-Arrest/Don't Intubate - Mobility Orders Other (Wheelchair) - Rehabiliation Orders Rehab Potential: Fair Rehab Orders: Evaluation for Physical Therapy, Evaluation for Occupational Therapy - Treatments Skin tear care topically daily PRN per policy - Diet Orders Renal CERTIFICATION: I certify that the transfer of the above named patient to an Extended Care Facility is necessary for the continuing treatment of the diagnosis listed. The above information is true and accurate reflection of patient's current condition. Confidential - Redisclosure prohibited without a patient's written consent. <Sadiq Graham P - Last Filed: 03/30/17 16:39> - Respiratory Orders Smoking Cessation: Smoking cessation has been advised. For more information, call the [facility] Quit Line at 3-533-VBDH-NOW. CERTIFICATION: I certify that the transfer of the above named patient to an Extended Care Facility is necessary for the continuing treatment of the diagnosis listed. The above information is true and accurate reflection of patient's current condition. Confidential - Redisclosure prohibited without a patient's written consent.
[2017-03-30 10:22] LABS: Folate 10.2 ng/mL (7.0-31.4)
--- NOTE | 2017-03-30 10:25 | Nephrology Progress Note ---
Date of Encounter: 03/30/17 Time of Encounter: 10:23 - Assessment and Plan (1) ESRD (end stage renal disease) on dialysis Current Visit: Yes Status: Chronic Plan for dialysis tomorrow in outpatient setting-[facility] Continue renal diet and fluid restriction Avoid nephrotoxins if possible (2) Anemia Current Visit: No Status: Acute Hgb 8.3 Goal 10-11 Will follow in outpatient HD center Qualifiers: Anemia type: other cause Other causes of anemia: chronic disease, kidney Qualified Code(s): N18.9 - Chronic kidney disease, unspecified; D63.1 - Anemia in chronic kidney disease Subjective Principal diagnosis: ESRD Interval history: Patient seen and examined. Seems back to herself today. States she is being discharged back to [facility] today. Objective - Vital Signs Vital signs: Vital Signs Temp Pulse Resp BP Pulse Ox 03/30/17 08:15 100 03/30/17 07:32 98.0 F 68 18 142/59 95 03/30/17 05:10 98.6 F 88 16 138/53 94 03/30/17 04:18 18 03/29/17 21:48 96 03/29/17 21:22 16 03/29/17 19:11 98.4 F 86 16 104/56 96 03/29/17 18:37 96/48 03/29/17 15:27 98.4 F 80 18 96/48 98 03/29/17 14:34 98.7 F 22 112/66 03/29/17 13:55 100/49 03/29/17 13:40 107/59 03/29/17 13:25 125/59 03/29/17 13:10 125/56 03/29/17 12:55 123/57 03/29/17 12:40 114/52 03/29/17 12:25 120/58 03/29/17 12:10 107/63 03/29/17 11:55 129/51 03/29/17 11:40 137/52 03/29/17 11:25 135/50 03/29/17 11:10 125/56 03/29/17 10:55 127/61 03/29/17 10:40 124/56 03/29/17 10:39 98 03/29/17 10:25 98.1 F 20 111/51 Intake and Output 03/29/17 03/30/17 03/30/17 23:59 07:59 15:59 Intake Total 120 / 120 480 / 480 Balance 120 / 120 480 / 480 Intake: Oral 120 / 120 480 / 480 Other: Meal Dinner Breakfast Percent of Meal Consumed 25% 100% Weight 118.9 kg Blood Glucose* 185 165 Patient Weight 03/30/17 23:59 Weight 118.9 kg - General Appearance General appearance: Present: well-developed, well-nourished, obese EENT: Present: ATNC, mucous membranes moist, hearing intact, vision intact Neck: Present: supple Respiratory: Present: clear Cardiology: Present: edema, normal S1, normal S2 Gastrointestinal: Present: no tenderness, no guarding, obese Integumentary: Present: warm and dry Neurologic: Present: alert and oriented x3 Psychiatric: Present: mood/affect appropriate, cooperative - Lab 03/30/17 07:24 03/30/17 07:24 Most recent lab results Calcium 8.8 mg/dL (8.6-10.8) 03/30/17 07:24 Magnesium 1.5 mg/dL (1.6-2.6) L 03/30/17 07:24 Consult Discharge Plan - Plan Additional Instructions: Please follow up with her primary care physician. Please restart her home medications. Please take one more dose of your antibiotic on Wednesday, March 31. Please start darbepoetin 40 g subcutaneous injection weekly on April 05. Please continue with her regular scheduled dialysis sessions. Please return for any new or worsening symptoms. Referrals: Tristen Quintana MD [Primary Care Provider] - Prescriptions: OxyCODONE ER (12 HR) [OxyCONTIN] 20 mg PO Q12HR #14 tab.er.12h Darbepoetin [Aranesp] 40 mcg SQ QWEEK #4 syringe levoFLOXacin [Levaquin] 500 mg PO DAILY #1 tablet
[2017-03-31] MEDS: Ipratropium/Albuterol Neb 3 ML IH SCH ×4 (04:03→16:35)
[2017-03-31] MEDS: *HR* OxyCODONE ER (12 HR) 10 MG TABLET PO SCH (05:25)
[2017-03-31] MEDS: *HR* Heparin 5,000 UNIT/ML VIAL SQ SCH (05:25)
[2017-03-31 08:03] LABS: Eosinophils % 2.8 %; Hemoglobin 8.3 g/dL (11.5-15.4)
[2017-03-31 08:05] LABS: Basophils # 0.1 K/mcL (0.0-0.2); Basophils % 0.7 %; Eosinophils # 0.2 K/mcL (0.0-0.6); Hematocrit 28.6 % (35.3-44.9); Immature Granulocytes % 2.8 % (0-4); Lymphocytes # 1.6 K/mcL (0.6-4.6); Lymphocytes % 21.2 %; Mean Corpuscular Volume 79.2 fL (83.0-100.0); Mean Platelet Volume 10.3 fL (9.4-12.4); Monocytes # 0.6 K/mcL (0.0-1.3); Monocytes % 7.6 %; Neutrophils # 4.9 K/mcL (1.6-8.9); Platelet Count 182 K/mcL (140-400); Red Blood Count 3.61 M/mcL (3.82-4.97); Red Cell Distribution Width 18.9 % (11.5-14.5); Segmented Neutrophils % 64.9 %
[2017-03-31 08:19] LABS: Calcium 8.9 mg/dL (8.6-10.8); Potassium 4.2 mEq/L (3.5-4.5)
[2017-03-31] MEDS ORDERED: 0.9 % Sodium Chloride 250 ML IVC PRN (08:19)
--- NOTE | 2017-03-31 08:29 | Event Note ---
<You Márquez G - Last Filed: 03/31/17 08:28> Date of Encounter: 03/31/17 Time of Encounter: 08:28 Patient seen and examined at dialysis. Patient stated that she had no complaints. Patient states that she is [facility]. Plan was for the patient to be discharged yesterday however when we are ready to discharge the patient the retirement informed us that they did not have an isolation room ready for her so she required another night stay here in the hospital. Patient will be discharged to the retirement today after her regularly scheduled dialysis session this morning. <Sadiq Graham P - Last Filed: 03/31/17 08:45> Date of Encounter: 03/31/17 I examined this patient and my medical decision-making was reviewed with the PLANER TAILER/PA/Advanced Practice Nurse/Resident Physician. I agree with the documented findings, disposition and treatment plan as described except to the extent set forth below. d/c yesterday
[2017-03-31 08:46] LABS: Anisocytosis 1+ (Not Present); Hypochromasia Present (Not Present); Microcytosis Present (Not Present); Platelet Estimate Normal (Normal); Polychromasia 1+ (Not Present)
[2017-03-31] MEDS ORDERED: levoFLOXacin 500 MG TABLET PO ONE (10:00)
--- NOTE | 2017-03-31 11:21 | Nephrology Progress Note ---
Date of Encounter: 03/31/17 Time of Encounter: 11:19 - Assessment and Plan (1) ESRD (end stage renal disease) on dialysis Current Visit: Yes Status: Chronic HD MWF. Continue dialysis. (2) Anemia Current Visit: No Status: Acute Monitor. Will start KAITLIN. Qualifiers: Anemia type: other cause Other causes of anemia: chronic disease, kidney Qualified Code(s): N18.9 - Chronic kidney disease, unspecified; D63.1 - Anemia in chronic kidney disease Subjective Principal diagnosis: ESRD Interval history: Patient seen on HD. No new complaint. Ros otherwise stable or negative. Objective - Vital Signs Vital signs: Vital Signs Temp Pulse Resp BP Pulse Ox 03/31/17 11:10 144/62 03/31/17 10:55 149/71 03/31/17 10:40 140/63 03/31/17 10:25 142/63 03/31/17 10:10 143/62 03/31/17 09:55 146/56 03/31/17 09:40 143/53 03/31/17 09:25 137/49 03/31/17 09:10 132/61 03/31/17 08:55 126/97 03/31/17 08:40 134/62 03/31/17 08:25 147/62 03/31/17 08:10 98.1 F 16 161/64 03/31/17 07:00 87 16 133/41 96 03/31/17 03:17 98.1 F 81 17 120/50 96 03/30/17 23:37 98.0 F 88 18 121/51 99 03/30/17 22:35 98 03/30/17 21:17 16 98 03/30/17 18:53 98.1 F 77 17 117/65 98 03/30/17 16:47 18 96 03/30/17 16:16 97.9 F 77 18 146/65 95 03/30/17 12:42 97.7 F 82 18 110/71 100 Intake and Output 03/30/17 03/31/17 03/31/17 23:59 07:59 15:59 Intake Total 740 / 740 400 / 400 600 / 600 Output Total 0 / 0 0 / 0 Balance 740 / 740 400 / 400 600 / 600 Intake: Oral 740 / 740 400 / 400 0 / 0 Intake, Rinseback and 600 / 600 Flushes Output: Urine 0 / 0 0 / 0 Other: Meal Dinner Percent of Meal Consumed 100% # Voids 2 Weight 119.4 kg Blood Glucose* 210 231 Hemodialysis Net Fluid 3940 Removed (mL) Patient Weight 03/31/17 23:59 Weight 119.4 kg - General Appearance General appearance: Present: well-developed, well-nourished, obese EENT: Present: ATNC Neck: Present: supple Respiratory: Present: clear Cardiology: Present: edema (1+ edema bilateral lower extremity. ), regular rate Integumentary: Present: warm and dry Neurologic: Present: alert and oriented x3 Psychiatric: Present: mood/affect appropriate - Lab 03/31/17 07:39 03/31/17 07:39 Most recent lab results Calcium 8.9 mg/dL (8.6-10.8) 03/31/17 07:39 Magnesium 1.5 mg/dL (1.6-2.6) L 03/30/17 07:24 Consult Discharge Plan - Plan Instructions: Urinary Tract Infection in Women (DC) Additional Instructions: Please follow up with her primary care physician. Please restart her home medications. Please take one more dose of your antibiotic on Wednesday, March 31. Please start darbepoetin 40 g subcutaneous injection weekly on April 05. Please continue with her regular scheduled dialysis sessions. Please return for any new or worsening symptoms. Referrals: Tristen Quintana MD [Primary Care Provider] - Prescriptions: OxyCODONE ER (12 HR) [OxyCONTIN] 20 mg PO Q12HR #14 tab.er.12h Darbepoetin [Aranesp] 40 mcg SQ QWEEK #4 syringe levoFLOXacin [Levaquin] 500 mg PO DAILY #1 tablet
[2017-03-31 11:49] VITALS: BP 165/69
[2017-03-31] MEDS: Insulin LISPRO 300 UNITS/3 ML VIAL SQ SCH (12:15)
[2017-03-31] MEDS: Calcium Acetate 667 MG CAPSULE PO SCH ×2 (12:17→12:20)
[2017-03-31] MEDS: Gabapentin 100 MG CAPSULE PO SCH (12:20)
[2017-03-31] MEDS: Furosemide 40 MG TABLET PO SCH (12:22)
== END 2017-03-31 17:10 | DRG 689 ==
LOC: 3ANU 11:58 → EMEROO 11:58 → 2NENU 15:41 → SUATTDRO 17:13
PROVIDERS: ADMIT Internal Medicine; ATTEND Internal Medicine

== ENCOUNTER 2017-04-14 21:13 | Inpatient (IN) ==
[2017-04-14 21:56] LABS: Basophils % 0.4 %; Eosinophils # 0.1 K/mcL (0.0-0.6); Eosinophils % 0.7 %; Hematocrit 34.8 % (35.3-44.9); Hemoglobin 10.3 g/dL (11.5-15.4); Immature Granulocytes % 1.1 % (0-4); Immature Platelets 4.1 % (1.1-6.1); Lymphocytes # 1.5 K/mcL (0.6-4.6); Lymphocytes % 14.5 %; Mean Corpuscular HGB Conc 29.6 g/dL (31.6-35.5); Mean Corpuscular Volume 77.7 fL (83.0-100.0); Mean Platelet Volume 9.7 fL (9.4-12.4); Monocytes % 9.7 %; Neutrophils # 7.8 K/mcL (1.6-8.9); Platelet Count 248 K/mcL (140-400); Red Blood Count 4.48 M/mcL (3.82-4.97); Red Cell Distribution Width 19.4 % (11.5-14.5); Segmented Neutrophils % 73.6 %
[2017-04-14 22:02] LABS: INR 1.3; Prothrombin Time 14.1 Seconds (9.4-12.1)
[2017-04-14 22:04] LABS: Activated Partial Thrombo Time 33.9 Seconds (26.0-36.0)
[2017-04-14 22:10] LABS: Albumin 2.8 g/dL (3.5-5.0); Albumin/Globulin Ratio 0.6 (1.1-2.2); Bilirubin,Direct 0.3 mg/dL (0.0-0.5); Bilirubin,Indirect 0.1 mg/dL (0.0-1.2); Bilirubin,Total 0.4 mg/dL (0.2-1.2); Calcium 9.2 mg/dL (8.6-10.8); Globulin 4.8 g/dL (2.4-3.5); Potassium 4.2 mEq/L (3.5-4.5); Total Protein 7.6 g/dL (6.0-8.3)
--- NOTE | 2017-04-14 23:31 | Emergency Department Note ---
Disposition Clinical Impression: CKD (chronic kidney disease), stage IV Acute and chronic respiratory failure Qualifiers: Respiratory failure complication: unspecified whether with hypoxia or hypercapnia Qualified Code(s): J96.20 - Acute and chronic respiratory failure, unspecified whether with hypoxia or hypercapnia Chest pain Qualifiers: Ischemic chest pain type: stable angina pectoris Congestive heart failure Qualifiers: Congestive heart failure type: unspecified congestive heart failure type Congestive heart failure chronicity: unspecified congestive heart failure chronicity Qualified Code(s): I50.9 - Heart failure, unspecified Disposition: Admitted As Inpatient Condition: Good Time of Disposition: 23:34 SOB HPI - General Chief Complaint: ED Shortness of Breath/Dyspnea Stated Complaint: SOB/CP Time Seen by Provider: 04/14/17 21:17 Source: patient, EMS Mode of arrival: EMS Limitations: no limitations Nursing Notes Reviewed: Yes Vital Signs Reviewed: Yes - History of Present Illness Patient presents to the ED via EMS with a chief complaint of chest pain and shortness breath. Patient has history of coronary artery disease, last RI was approximately 2 years ago. On Plavix. On dialysis Wednesday, Wednesday, Wednesday with Dr. Rivers. Went to dialysis today and afterwards started having a retrosternal/epigastric chest/abdominal pain that radiated underneath her bilateral breasts. Pleuritic in nature. Worse with deep breath. Associated with some nausea but no vomiting. No diarrhea. Reports that this is her previous anginal equivalent. Denies any other associated abdominal pain. Does have a history of COPD as well. On home oxygen of 2-3 L. - Related Data Home Medications Medication Instructions Recorded Confirmed Clopidogrel [Plavix] 75 mg PO DAILY 05/11/15 03/26/17 Omeprazole [PriLOSEC] 20 mg PO BID 05/11/15 03/26/17 Rosuvastatin [Crestor] 40 mg PO HS 05/11/15 03/26/17 Sevelamer [Renvela] 800 mg PO TIDWM 05/11/15 03/26/17 Colestipol HCl [Colestid] 1 gm PO BID 06/12/15 03/26/17 Carvedilol 12.5 mg PO BID 10/28/15 03/26/17 amLODIPine [Norvasc] 5 mg PO DAILY 06/09/16 03/26/17 Calcium Acetate [Phos-LO] 667 mg PO TIDWM 09/06/16 03/26/17 Furosemide [Lasix] 80 mg PO BID 09/06/16 03/26/17 metOLazone [Zaroxolyn] 2.5 mg PO MOWEFR 09/06/16 03/26/17 Albuterol Sulfate [Ventolin Hfa] 2 puff IH Q4H PRN 12/29/16 03/26/17 Tiotropium [Spiriva] 1 puff IH DAILY 01/12/17 03/26/17 Insulin LISPRO [HumaLOG] 0 - 16 units SQ TIDAC 02/05/17 03/26/17 Sennosides/Docusate Sodium [Senna 1 tab PO DAILY 03/26/17 03/26/17 Plus] Previous Rx's Medication Instructions Recorded Gabapentin [Neurontin] 200 mg PO TID 30 Days 06/18/16 GuaiFENesin/Dextromethorphan 10 ml PO Q6HR udc 01/22/17 [Robitussin/Dm] Insulin Glargine,Hum.rec.anlog 43 unit SQ BID #0 02/10/17 [Lantus Solostar] Darbepoetin [Aranesp] 40 mcg SQ QWEEK #4 syringe 03/30/17 OxyCODONE ER (12 HR) [OxyCONTIN] 20 mg PO Q12HR #14 tab.er.12h 03/30/17 levoFLOXacin [Levaquin] 500 mg PO DAILY #1 tablet 03/30/17 Metoclopramide [Reglan] 10 mg PO Q6HR 2 Days 04/12/17 Ondansetron ODT [Zofran ODT] 4 mg SL Q6HR #10 tab.rapdis 04/12/17 Allergies Allergy/AdvReac Type Severity Reaction Status Date / Time No Known Allergies Allergy Verified 01/12/17 11:29 Constitutional: Denies: fever Cardiovascular: Reports: chest pain, dyspnea on exertion, edema Respiratory: Reports: dyspnea Gastrointestinal: Reports: abdominal pain, nausea. Denies: vomiting Past Medical History - Past Medical History Attestation: Yes The following information was validated with the patient. 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 Absent: normal lung sounds bilaterally, respiratory distress - Cardiovascular Cardiovascular exam: Present: regular rate, normal rhythm, normal heart sounds - Abdominal Exam Abdominal exam: Present: soft, Non-Tender, other (Obese, reports at baseline). Absent: tenderness, distention - Extremities Exam Extremities exam: Present: pedal edema (1+ pitting edema bilaterally) - Neurological Exam Neurological exam: Present: alert, oriented X3 - Psychiatric Psychiatric exam: Present: normal affect, normal mood - Skin Skin exam: Present: warm, dry, intact, normal color Course Course Narrative: 62-year-old female presenting from dialysis with chest pain, shortness of breath. She is having her anginal equivalent, although reports her pain is minimal at this time. We will workup and admit. Vital Signs Temperature 98.9 F 04/14/17 21:17 Pulse Rate 88 04/14/17 21:17 Respiratory Rate 22 04/14/17 21:17 Blood Pressure 126/66 04/14/17 21:17 O2 Sat by Pulse Oximetry 100 04/14/17 21:17 Temperature 98.9 F 04/14/17 21:17 Pulse Rate 88 04/14/17 23:41 Respiratory Rate 16 04/15/17 00:54 Blood Pressure 128/67 04/15/17 00:54 O2 Sat by Pulse Oximetry 93 04/14/17 23:41 Oxygen Delivery Oxygen Delivery Nasal Cannula Shortness of Breath/Dyspnea - Lab Data Result diagrams: 04/14/17 21:48 04/14/17 21:48 Lab Results 04/14/17 04/14/17 04/14/17 Range/Units 21:45 21:48 21:48 WBC 10.6 (4.3-11.1) K/mcL RBC 4.48 (3.82-4.97) M/mcL Hgb 10.3 L (11.5-15.4) g/dL Hct 34.8 L (35.3-44.9) % MCV 77.7 L (83.0-100.0) fL MCH 23.0 L (28.0-33.3) pg MCHC 29.6 L (31.6-35.5) g/dL RDW 19.4 H (11.5-14.5) % Plt Count 248 (140-400) K/mcL MPV 9.7 (9.4-12.4) fL Immature Gran % 1.1 (0-4) % Seg Neutrophils % 73.6 % Lymphocytes % 14.5 % Monocytes % 9.7 % Eosinophils % 0.7 % Basophils % 0.4 % Neutrophils # 7.8 (1.6-8.9) K/mcL Lymphocytes # 1.5 (0.6-4.6) K/mcL Monocytes # 1.0 (0.0-1.3) K/mcL Eosinophils # 0.1 (0.0-0.6) K/mcL Basophils # 0.0 (0.0-0.2) K/mcL Immature Plt Fraction 4.1 (1.1-6.1) % PT (9.4-12.1) Seconds INR APTT (26.0-36.0) Seconds Sodium 131 L (136-145) mEq/L Potassium 4.2 (3.5-4.5) mEq/L Chloride 96 L (98-109) mEq/L Carbon Dioxide 22 (19-29) mEq/L BUN 24 H D (7-20) mg/dL Creatinine 3.44 H (0.57-1.11) mg/dL Est GFR ( Amer) 16 L (> 60) Est GFR (Non-Af Amer) 13 L (> 60) BUN/Creatinine Ratio 7 (6-26) Glucose 68 L (70-99) mg/dL Calculated Osmolality 274 L (280-300) Lactic Acid (0.5-2.2) mmol/L Calcium 9.2 (8.6-10.8) mg/dL Total Bilirubin 0.4 (0.2-1.2) mg/dL Direct Bilirubin 0.3 (0.0-0.5) mg/dL Indirect Bilirubin 0.1 (0.0-1.2) mg/dL AST 17 (5-34) Units/L ALT 12 (0-55) Units/L Alkaline Phosphatase 184 H (38-126) Units/L Troponin I (0-0.03) ng/mL B-Natriuretic Peptide (0-100) pg/mL Serum Total Protein 7.6 (6.0-8.3) g/dL Albumin 2.8 L (3.5-5.0) g/dL Globulin 4.8 H (2.4-3.5) g/dL Albumin/Globulin Ratio 0.6 L (1.1-2.2) Lipase 16 (8-78) Units/L 04/14/17 04/14/17 04/14/17 Range/Units 21:48 21:48 21:48 WBC (4.3-11.1) K/mcL RBC (3.82-4.97) M/mcL Hgb (11.5-15.4) g/dL Hct (35.3-44.9) % MCV (83.0-100.0) fL MCH (28.0-33.3) pg MCHC (31.6-35.5) g/dL RDW (11.5-14.5) % Plt Count (140-400) K/mcL MPV (9.4-12.4) fL Immature Gran % (0-4) % Seg Neutrophils % % Lymphocytes % % Monocytes % % Eosinophils % % Basophils % % Neutrophils # (1.6-8.9) K/mcL Lymphocytes # (0.6-4.6) K/mcL Monocytes # (0.0-1.3) K/mcL Eosinophils # (0.0-0.6) K/mcL Basophils # (0.0-0.2) K/mcL Immature Plt Fraction (1.1-6.1) % PT (9.4-12.1) Seconds INR APTT (26.0-36.0) Seconds Sodium (136-145) mEq/L Potassium (3.5-4.5) mEq/L Chloride (98-109) mEq/L Carbon Dioxide (19-29) mEq/L BUN (7-20) mg/dL Creatinine (0.57-1.11) mg/dL Est GFR ( Amer) (> 60) Est GFR (Non-Af Amer) (> 60) BUN/Creatinine Ratio (6-26) Glucose (70-99) mg/dL Calculated Osmolality (280-300) Lactic Acid 1.4 (0.5-2.2) mmol/L Calcium (8.6-10.8) mg/dL Total Bilirubin (0.2-1.2) mg/dL Direct Bilirubin (0.0-0.5) mg/dL Indirect Bilirubin (0.0-1.2) mg/dL AST (5-34) Units/L ALT (0-55) Units/L Alkaline Phosphatase (38-126) Units/L Troponin I 0.02 (0-0.03) ng/mL B-Natriuretic Peptide 311 H (0-100) pg/mL Serum Total Protein (6.0-8.3) g/dL Albumin (3.5-5.0) g/dL Globulin (2.4-3.5) g/dL Albumin/Globulin Ratio (1.1-2.2) Lipase (8-78) Units/L /02/24 Range/Units 21:48 WBC (4.3-11.1) K/mcL RBC (3.82-4.97) M/mcL Hgb (11.5-15.4) g/dL Hct (35.3-44.9) % MCV (83.0-100.0) fL MCH (28.0-33.3) pg MCHC (31.6-35.5) g/dL RDW (11.5-14.5) % Plt Count (140-400) K/mcL MPV (9.4-12.4) fL Immature Gran % (0-4) % Seg Neutrophils % % Lymphocytes % % Monocytes % % Eosinophils % % Basophils % % Neutrophils # (1.6-8.9) K/mcL Lymphocytes # (0.6-4.6) K/mcL Monocytes # (0.0-1.3) K/mcL Eosinophils # (0.0-0.6) K/mcL Basophils # (0.0-0.2) K/mcL Immature Plt Fraction (1.1-6.1) % PT 14.1 H (9.4-12.1) Seconds INR 1.3 APTT 33.9 (26.0-36.0) Seconds Sodium (136-145) mEq/L Potassium (3.5-4.5) mEq/L Chloride (98-109) mEq/L Carbon Dioxide (19-29) mEq/L BUN (7-20) mg/dL Creatinine (0.57-1.11) mg/dL Est GFR ( Amer) (> 60) Est GFR (Non-Af Amer) (> 60) BUN/Creatinine Ratio (6-26) Glucose (70-99) mg/dL Calculated Osmolality (280-300) Lactic Acid (0.5-2.2) mmol/L Calcium (8.6-10.8) mg/dL Total Bilirubin (0.2-1.2) mg/dL Direct Bilirubin (0.0-0.5) mg/dL Indirect Bilirubin (0.0-1.2) mg/dL AST (5-34) Units/L ALT (0-55) Units/L Alkaline Phosphatase (38-126) Units/L Troponin I (0-0.03) ng/mL B-Natriuretic Peptide (0-100) pg/mL Serum Total Protein (6.0-8.3) g/dL Albumin (3.5-5.0) g/dL Globulin (2.4-3.5) g/dL Albumin/Globulin Ratio (1.1-2.2) Lipase (8-78) Units/L S.B.A.R. - S.B.A.R. Situation: Demographics, MOA Background: Presenting Complaint, Relevant PMH, Meds, & Allergies Assessment: Vital Signs, Course and respsone to treatment, Exam Concerns, Patient/Family Expectation, Pertinant Lab Results, Outstanding Labs Recommendation: Recommendation based on pending studies, treatments, or consults S.B.A.R. Report Given to: Dr. Sy SGiuseppeBGiuseppeAShania Repor Time: 23:28 Attestation Statement - Attestation Attestation: I, Lenny Li, examined this patient and my medical decision-making was reviewed with the ACADEMY EDUCATION DIRECTOR/PA/Advanced Practice Nurse/Resident Physician. I agree with the documented findings, disposition and treatment plan as described except to the extent set forth below. 62-year-old female presents with concerns of chest pain. Patient receives dialysis Wednesday, Wednesday, Wednesday and developed chest pain after her session today. Patient states the symptoms feel similar to her previous heart attacks. She reports associated shortness of breath, diaphoresis, nausea. Pain is described as a pressure in the center of her chest which does not radiate. Initial EKG shows a fibrillation with rate of [address] depression in V4, V5. Initial troponin negative. Patient will be admitted to the hospital for further care and evaluation of acute chest pain to rule out ACS.
[2017-04-14] MEDS ORDERED: Aspirin 325 MG TABLET PO ONE (23:33)
[2017-04-15] MEDS ORDERED: Ondansetron 4 MG/2 ML VIAL IVP PRN (02:24)
[2017-04-15] MEDS ORDERED: Naloxone 0.4 MG/ML INJ IVP PRN (02:24)
--- NOTE | 2017-04-15 02:33 | Internal Med History&Physical ---
Date of Encounter: 04/15/17 Time of Encounter: 02:30 Assessment and Plan (1) Chest pain Current visit: Yes Status: Acute patient with a known history of CAD s/p PCI and CABG-2001, her admission EKG was significant for rate controlled AFIB/flutter with non specific changes, initial troponin was unremarkable, her most recent left heart cath was in 2016 and findings were; left main free of disease, LAD -50-60% stenosis in the proximal portion, Circumflex -50% instent stenosis in the mid circ, RCA-99% stenosis in the proximal portion and 90% in the mid portion, SVG to PDA was patent, LVEF was 55%, it was commented that the coronaries were unchanged from prior caths, based on this information her chest pain though concerning is unlikely to yield any new information with a stress test or cath but we will get cardiology to weigh in regarding optimizing medical management vs other interventions, we will cycle troponin, and continue her CAD medications, Qualifiers: Chest pain type: precordial pain Qualified Code(s): R07.2 - Precordial pain (2) Diabetes Current visit: Yes Status: Chronic her most recent A1c was 7.4% in 01/2017, she is on insulin regimen, we will continue basal bolus, for now she is NPO, we will do FS Q6H with hypoglycemia coverage Qualifiers: Diabetes mellitus type: type 2 Diabetes mellitus complication status: with kidney complications Diabetes mellitus complication detail: with chronic kidney disease Diabetes mellitus mcc insulin use: with roasterman use Chronic kidney disease stage: on chronic dialysis Qualified Code(s): E11.22 - Type 2 diabetes mellitus with diabetic chronic kidney disease; N18.6 - End stage renal disease; 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 transplanted heart: [place] heart Associated angina: with unstable angina Qualified Code(s): I25.110 - Atherosclerotic heart disease of [place] coronary artery with unstable angina pectoris (4) COPD (chronic obstructive pulmonary disease) Current visit: Yes Status: Chronic stable, she is on prednisone until 04/16/17 from outpatient prescriptions, will need to get details when more awake, will need to taper her off Qualifiers: COPD type: chronic bronchitis Chronic bronchitis type: simple Qualified Code(s): J41.0 - Simple chronic bronchitis (5) ESRD on hemodialysis Current visit: Yes Status: Chronic ESRD on HD MWF, she had HD on 04/14, her next HD is on Wednesday, we will get nephrology to weigh in regarding inpatient HD (6) HTN (hypertension) Current visit: Yes Status: Chronic normotensive on presentation, we will continue her home antihypertensive regimen whilst monitoring her BP Qualifiers: Hypertension type: essential hypertension Qualified Code(s): I10 - Essential (primary) hypertension (7) Venous stasis dermatitis of both lower extremities Current visit: Yes Status: Chronic seems stable, will monitor (8) Morbid (severe) obesity due to excess calories Current visit: Yes Status: Chronic will need lifestyle modification Internal Medicine - H&P: HPI Chief complaint: Chest pain Admitted From: Emergency Dept Plans for Post Hospital Care: Home History of present illness: Ms. Riley is a 62 year old female with a history of uncontrolled DM type 2/HTN/ ESRD on HD MWF/CAD s/p CABG and PCI who was brought to the ER of [facility] with chest pain. She was at her dialysis unit when she had sudden onset of chest pain that was pressure like in character, constant in timing, retrosternal in location. The pain was 8/10 in severity and radiated to her left arm. It was was associated with dyspnea, diaphoresis, palpitations, feeling of apprehension , nausea but no vomiting, and lightheadedness. She denies any trauma, fever, chills. She was brought in for further evaluation. Past Med Surg Social Fam HX - Past Medical History Medical history: arthritis, asthma, atrial fibrillation, CHF, COPD, coronary artery disease, CVA, DVT, diabetes, dialysis, fibromyalgia, GERD, GI bleed, hyperlipidemia, hypertension, kidney stones, migraine, myocardial infarction, osteoporosis, peripheral artery disease, renal disease, other Psychiatric history: anxiety, depression, schizophrenia, previous psychiatric hospitalization, other - Past Surgical History Surgical History: angioplasty/stent, appendectomy, cholecystectomy, coronary bypass (CABG), hysterectomy, knee replacement, other, IVC filter - Social History Smoking Status: Former smoker Smokeless Tobacco Status: No Alcohol use: none Drug use: none - Family History Father Living Status: Hx Family Cardiac Disorders: Yes Hx Family Endocrine Disorder: Yes Mother Living Status: Still Living Hx Family Respiratory Disorders: Yes (end stage copd) Internal Medicine - H&P: Meds Clopidogrel [Plavix] 75 mg PO DAILY 05/11/15 [History] Omeprazole [PriLOSEC] 20 mg PO BID 05/11/15 [History] Rosuvastatin [Crestor] 40 mg PO HS 05/11/15 [History] Sevelamer [Renvela] 800 mg PO TIDWM 05/11/15 [History] Colestipol HCl [Colestid] 1 gm PO BID 06/12/15 [History] Carvedilol 12.5 mg PO BID 10/28/15 [History] amLODIPine [Norvasc] 5 mg PO DAILY 06/09/16 [History] Gabapentin [Neurontin] 200 mg PO TID 30 Days 06/18/16 [Rx] Calcium Acetate [Phos-LO] 667 mg PO TIDWM 09/06/16 [History] Furosemide [Lasix] 80 mg PO BID 09/06/16 [History] metOLazone [Zaroxolyn] 2.5 mg PO MOWEFR 09/06/16 [History] Albuterol Sulfate [Ventolin Hfa] 2 puff IH Q4H PRN 12/29/16 [History] Tiotropium [Spiriva] 1 puff IH DAILY 01/12/17 [History] GuaiFENesin/Dextromethorphan [Robitussin/Dm] 10 ml PO Q6HR udc 01/22/17 [Rx] Insulin LISPRO [HumaLOG] 0 - 16 units SQ TIDAC 02/05/17 [History] Insulin Glargine,Hum.rec.anlog [Lantus Solostar] 43 unit SQ BID #0 02/10/17 [Rx ] Sennosides/Docusate Sodium [Senna Plus] 1 tab PO DAILY 03/26/17 [History] Darbepoetin [Aranesp] 40 mcg SQ QWEEK #4 syringe 03/30/17 [Rx] OxyCODONE ER (12 HR) [OxyCONTIN] 20 mg PO Q12HR #14 tab.er.12h 03/30/17 [Rx] levoFLOXacin [Levaquin] 500 mg PO DAILY #1 tablet 03/30/17 [Rx] Metoclopramide [Reglan] 10 mg PO Q6HR 2 Days 04/12/17 [Rx] Ondansetron ODT [Zofran ODT] 4 mg SL Q6HR #10 tab.rapdis 04/12/17 [Rx] Allergies No Known Allergies Allergy (Verified 01/12/17 11:29) All Systems PM: A 10-system review of systems was performed and is negative for pertinent findings except as documented above in the HPI. - Constitutional Vitals: Temp Pulse Resp BP Pulse Ox 99.4 F 99 20 133/72 91 04/15/17 01:03 04/15/17 01:03 04/15/17 01:03 04/15/17 01:03 04/15/17 01:03 GENERAL: Adult female, morbidly obese looking, drowsy looking, HEENT: NC/AT, EOMI, PERRLA, anicteric sclera, normal conjunctiva, supple, clear nares, moist mucous membranes, RESP: Lungs are clear to auscultation bilaterally, good AE bilaterally, No crackles or wheeze CARDIO: sternal scar, normal hearts sounds; S1 and 2, RRR with no murmurs, no JVD, bipedal pitting edema GI: Soft, full, no tenderness, no organomegaly felt, normal bowel sounds heard MUSCULOSKELETAL: grossly normal movements bilaterally, bilateral ankle dressing noted, NEUROLOGIC: CN 2-12 intact grossly. No motor/sensory deficit appreciated, PSYCHIATRY: AAO x 3 SKIN: bilateral stasis dermatitis, bilateral lower extremity surgical scars Internal Med - H&P Results - Labs CBC & Chem 7: 04/14/17 21:48 04/14/17 21:48 - EKG Data -: EKG Interpreted by Myself (rate controlled AFIB/Flutter) - Diagnostic Studies Chest x-ray Status: image reviewed by me
[2017-04-15] MEDS ORDERED: Albuterol 2.5 MG/3 ML NEBULIZER IH PRN (04:50)
[2017-04-15 05:09] LABS: Calcium 8.5 mg/dL (8.6-10.8); Magnesium 1.7 mg/dL (1.6-2.6); Phosphorous 4.7 mg/dL (2.3-4.7); Potassium 4.3 mEq/L (3.5-4.5)
[2017-04-15] MEDS: *HR* Heparin 5,000 UNIT/ML VIAL SQ SCH ×3 (06:26→20:53)
[2017-04-15] MEDS: *HR* OxyCODONE ER (12 HR) 20 MG TABLET PO SCH ×2 (06:26→17:00)
[2017-04-15] MEDS: Calcium Acetate 667 MG CAPSULE PO SCH ×3 (08:25→16:59)
[2017-04-15] MEDS ORDERED: Dextrose Gel 15 GM PO PRN ×2 (08:33)
[2017-04-15] MEDS: Sennosides/Docusate Sodium TABLET PO SCH (08:33)
[2017-04-15] MEDS ORDERED: D5% in Water 1,000 ML IVC PRN (08:33)
[2017-04-15] MEDS: amLODIPine 5 MG TABLET PO SCH (08:33)
[2017-04-15] MEDS ORDERED: *HR* Dextrose 50 % in Water (Syg) 50 ML SYRINGE IVP PRN (08:33)
[2017-04-15] MEDS: Gabapentin 100 MG CAPSULE PO SCH ×3 (08:47→20:53)
[2017-04-15] MEDS ORDERED: (Colestipol Hcl [Colestid] 1 GM) PO SCH (09:00)
[2017-04-15] MEDS ORDERED: Gabapentin 100 MG CAPSULE PO SCH (09:00)
--- NOTE | 2017-04-15 09:31 | Internal Med Progress Note ---
<Deepti Forte - Last Filed: 04/15/17 16:21> Date of Encounter: 04/15/17 Time of Encounter: 08:30 - Assessment and plan (1) Chest pain Current Visit: Yes Status: Acute Assessment and plan: - With negative troponin and no significant ischemic change on EKG. - Per cardiology, it's more likely musculoskeletal associated with chronic cough and no further cardiology work-up recommended at this time. Qualifiers: Chest pain type: chest pain on breathing Qualified Code(s): R07.1 - Chest pain on breathing (2) Atrial fibrillation Current Visit: No Status: Chronic Assessment and plan: - EKG and telemetry show A-fib. - Currently rate-controlled with Coreg. - CHADS VASc score 5 for HTN, DM, CVA and CAD. Also noted to have history of DVT. - Cardiology recommends anticoagulation and patient needs GI work-up before initiation of anticoagulation. Qualifiers: Atrial fibrillation type: paroxysmal Qualified Code(s): I48.0 - Paroxysmal atrial fibrillation (3) CAD (coronary artery disease) Current Visit: Yes Status: Chronic Assessment and plan: - History of CABG 1V and previous PCI. - Continue asa, statin, beta vera. Will add Imdur as recommended by cardiology. - 2-3 week outpatient follow-up with [place] [facility]ology will be arranged. Qualifiers: Coronary Disease-Associated Artery/Lesion type: [place] artery [place] vs. transplanted heart: [place] heart Associated angina: with unstable angina Qualified Code(s): I25.110 - Atherosclerotic heart disease of [place] coronary artery with unstable angina pectoris (4) History of GI bleed Current Visit: Yes Status: Acute Assessment and plan: - Patient's last EGD in 2014 found gastritis. Colonoscopy in 2015 found diverticulosis and non-bleeding polyps. Patient had repeated colonoscopy in 2015 with clips placed for bleeding from prior polypectomy. - Cardiology recommends GI work-up before initiation of anticoagulation for A- fib. - Dr. Calero, the endoscopist dehydrogenation converter operator, has been consulted. Appreciate possible scopy for further evaluation. - Continue omeprazole. (5) ESRD on hemodialysis Current Visit: Yes Status: Chronic Assessment and plan: - Dr. Hernandez on board and plan to have hemodialysis tomorrow if patient is still here. (6) Diabetes Current Visit: No Status: Chronic Assessment and plan: - Continue insulin sliding scale. Qualifiers: Diabetes mellitus type: type 2 Diabetes mellitus complication status: with kidney complications Diabetes mellitus complication detail: with chronic kidney disease Diabetes mellitus snf insulin use: with snf use Chronic kidney disease stage: on chronic dialysis Qualified Code(s): E11.22 - Type 2 diabetes mellitus with diabetic chronic kidney disease; N18.6 - End stage renal disease; Z79.4 - long term care phlebotomist (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 of insulin; Z99.2 - Dependence on renal dialysis (7) HTN (hypertension) Current Visit: Yes Status: Chronic Assessment and plan: - BP within normal range. - Continue current antihypertensive regimen. Qualifiers: Hypertension type: essential hypertension Qualified Code(s): I10 - Essential (primary) hypertension (8) Venous stasis dermatitis of both lower extremities Current Visit: Yes Status: Chronic (9) Morbid (severe) obesity due to excess calories Current Visit: Yes Status: Chronic Assessment and plan: - BMI 39.8 - Subjective Interval history: This not is NOT for billing purpose. Patient was seen and examined this morning. Patient reports intermittent chest tightness on admission but not at this time. Patient did get her hemodialysis on 04/14/17 and that helped her breathing in some degree. Patient denies fever, chills, nausea, vomiting, diarrhea. - Constitutional Vitals: Temp Pulse Resp BP Pulse Ox 99.6 F 82 18 121/60 98 04/15/17 06:50 04/15/17 06:50 04/15/17 06:50 04/15/17 06:50 04/15/17 06:50 General appearance: Present: cooperative, A&O X 3, obese - Head Head exam: Present: atraumatic, normocephalic - Eye Eye exam: Present: EOMI, PERRL, conjuntiva pink, sclera anicteric - Neck Neck exam general surgery: Present: supple, trachea midline. Absent: lymphadenopathy - Respiratory Respiratory exam: Present: rhonchi (bibasilar). Absent: accessory muscle use, rales, wheezes - Cardiovascular Cardiovascular exam: Present: irregular rhythm, +S1, +S2. Absent: diastolic murmur, gallop, rubs, systolic murmur - GI/Abdominal GI/Abdominal exam: Present: normal bowel sounds, soft, no peritoneal signs. Absent: distended, tenderness - Extremities Exam Extremities exam: Present: pedal edema (2+ pitting edema), warm, radial pulses palpable and symetrical. Absent: calf tenderness, cyanotic - Neurological Exam Neurological exam: Present: CN II-XII intact, oriented X3, no focal deficits. Absent: pronater drift, facial droop, speech deficit - Skin Skin exam: Present: dry, intact Internal Medicine: Result - Labs CBC & Chem 7: 04/14/17 21:48 04/15/17 04:36 Labs: [facility] 04/15/17 04:36 Sodium 132 L Potassium 4.3 Chloride 99 Carbon Dioxide 23 BUN 27 H Creatinine 3.56 H Glucose 63 L Calcium 8.5 L Cardiac Enzymes 04/15/17 Range/Units 04:36 Troponin I 0.01 (0-0.03) ng/mL - ABG Interpretation ABG results: PT/INR, D-dimer PT 14.1 Seconds (9.4-12.1) H 04/14/17 21:48 Consult Discharge Plan - Plan Referrals: Tristen Quintana MD [Primary Care Provider] - <Wilmer Blanco - Last Filed: 04/15/17 18:12> Date of Encounter: 04/15/17 - Constitutional Vitals: Temp Pulse Resp BP Pulse Ox 97.5 F L 75 18 118/68 96 04/15/17 15:36 04/15/17 15:36 04/15/17 15:36 04/15/17 15:36 04/15/17 15:36 Internal Medicine: Result - Labs CBC & Chem 7: 04/14/17 21:48 04/15/17 04:36 Labs: [facility] 04/15/17 04:36 Sodium 132 L Potassium 4.3 Chloride 99 Carbon Dioxide 23 BUN 27 H Creatinine 3.56 H Glucose 63 L Calcium 8.5 L Cardiac Enzymes 04/15/17 04/15/17 Range/Units 04:36 09:25 Troponin I 0.01 0.02 (0-0.03) ng/mL - ABG Interpretation ABG results: PT/INR, D-dimer PT 14.1 Seconds (9.4-12.1) H 04/14/17 21:48 - Attending Attestation Pt placed in observation today for chest pain. Seen by cardiology. Has a fib. Rec eval of anemia No other new issues. Continue same plan of care for now.
--- NOTE | 2017-04-15 10:39 | Cardiology Consult Note ---
<Jaime Pavon - Last Filed: 04/15/17 11:18> Date of Encounter: 04/15/17 Time of Encounter: 10:36 Assessment and Plan (1) Chest pain Current Visit: Yes Status: Acute Atypical chest pain. Likely muscle skeletal in the setting of cough for one month. Known CAD. Last LHC was in October 2016 that showed stable CAD. No intervention at that time. There was severe one vessel CAD with patent SVG to PDA graft to that area. 50-60% stenosis in the pLAD, 50% stenosis mCX, 99% stenosis pRCA, 90 % stenosis mRCA. SVG-PDA was patent. She is noted to have poor f/u with cardiology since that time. Last stress 08/2016- pharmacologic stress test negative for ischemia. TTE 12/2015-EF 55-60%, mild LVH, Mild diastolic dysfunction, mild aortic regurgitation, mild mitral regurgitation. Will add imdur d/t CAD. No further cardiology work-up recommended at this time. Continue medical management. Qualifiers: Chest pain type: chest pain on breathing Qualified Code(s): R07.1 - Chest pain on breathing (2) CAD (coronary artery disease) Current Visit: Yes Status: Chronic H/o CABG 1V and previous PCI. Continue asa, statin, bb. Add imdur. Poor cardiology f/u previously. [place] cardiology will coordinate 2-3 week out- pt f/u. Call with questions. Qualifiers: Coronary Disease-Associated Artery/Lesion type: [place] artery [place] vs. transplanted heart: [place] heart Associated angina: with unstable angina Qualified Code(s): I25.110 - Atherosclerotic heart disease of [place] coronary artery with unstable angina pectoris (3) Atrial fibrillation Current Visit: No Status: Chronic EKG shows atrial fibrillation. Noted to have rate controlled atrial fibrillation on telemetry. EKG in March showed afib. No cardiology f/u since that time. CHADS VASc= 5 for HTN, DM, CVA2, CAD. She also is noted to have history of DVT and hypercoagulable state. H/o GI bleed and anemia of chronic disease noted. Hgb in the 7.9 range last month. Ideally she she should be on anticoagulation with coumadin. Would recommend GI work-up prior to starting. I will discuss with primary team. Qualifiers: Atrial fibrillation type: paroxysmal Qualified Code(s): I48.0 - Paroxysmal atrial fibrillation Discussion w patient/family: The assessment and plan as outlined above was discussed with the patient and/or family members who expressed understanding and agreement. All questions were answered. Thank you for involving us in the care of your patient. Please call with any questions. History of Present Illness Consult date: 04/15/17 Requesting physician: Dennis Moncada Consult reason: Chest pain Chief complaint: Chest pain, cough x 1 mo History of present illness: Ms. Riley is a 62 year old female with a history of CAD s/p 1V CABG in 2001, s/ p previous PCI, ESRD on dialysis, COPD, DM type II, HTN, and chronic venous stasis dermatitis who [facility]. She c/o midsternal chest pain radiating to her abdomen and back. Pain increases with cough and movement. She s/o cough for one month. She denies taking anything for relief of her pain. She also admits to SOB. Last LHC was in October 2016 that showed stable CAD. No intervention at that time. There was severe one vessel CAD with patent SVG to PDA graft to that area. 50-60% stenosis in the pLAD, 50% stenosis mCX, 99% stenosis pRCA, 90% stenosis mRCA. SVG-PDA was patent. She is noted to have poor f/u with cardiology since that time. Past Med Surg Social Fam HX - Past Medical History Attestation: Yes The following information was validated with the patient. Medical history: arthritis, asthma, atrial fibrillation, CHF, COPD, coronary artery disease, CVA, DVT, diabetes, dialysis, fibromyalgia, GERD, GI bleed, hyperlipidemia, hypertension, kidney stones, migraine, myocardial infarction, osteoporosis, peripheral artery disease, renal disease, other Psychiatric history: anxiety, depression, schizophrenia, previous psychiatric hospitalization, other - Past Surgical History Surgical History: angioplasty/stent, appendectomy, cholecystectomy, coronary bypass (CABG), hysterectomy, knee replacement, other, IVC filter - Social History Smoking Status: Former smoker Smokeless Tobacco Status: No Alcohol use: none Drug use: none - Family History Father Living Status: Hx Family Cardiac Disorders: Yes Hx Family Endocrine Disorder: Yes Mother Living Status: Still Living Hx Family Respiratory Disorders: Yes (end stage copd) Medications and Allergies Clopidogrel [Plavix] 75 mg PO DAILY 05/11/15 [History] Omeprazole [PriLOSEC] 20 mg PO BID 05/11/15 [History] Rosuvastatin [Crestor] 40 mg PO HS 05/11/15 [History] Sevelamer [Renvela] 800 mg PO TIDWM 05/11/15 [History] Colestipol HCl [Colestid] 1 gm PO BID 06/12/15 [History] Carvedilol 12.5 mg PO BID 10/28/15 [History] amLODIPine [Norvasc] 5 mg PO DAILY 06/09/16 [History] Gabapentin [Neurontin] 200 mg PO TID 30 Days 06/18/16 [Rx] Calcium Acetate [Phos-LO] 667 mg PO TIDWM 09/06/16 [History] Furosemide [Lasix] 80 mg PO BID 09/06/16 [History] metOLazone [Zaroxolyn] 2.5 mg PO MOWEFR 09/06/16 [History] Albuterol Sulfate [Ventolin Hfa] 2 puff IH Q4H PRN 12/29/16 [History] Tiotropium [Spiriva] 1 puff IH DAILY 01/12/17 [History] GuaiFENesin/Dextromethorphan [Robitussin/Dm] 10 ml PO Q6HR udc 01/22/17 [Rx] Insulin LISPRO [HumaLOG] 0 - 16 units SQ TIDAC 02/05/17 [History] Insulin Glargine,Hum.rec.anlog [Lantus Solostar] 43 unit SQ BID #0 02/10/17 [Rx ] Sennosides/Docusate Sodium [Senna Plus] 1 tab PO DAILY 03/26/17 [History] Darbepoetin [Aranesp] 40 mcg SQ QWEEK #4 syringe 03/30/17 [Rx] OxyCODONE ER (12 HR) [OxyCONTIN] 20 mg PO Q12HR #14 tab.er.12h 03/30/17 [Rx] Metoclopramide [Reglan] 10 mg PO Q6HR 2 Days 04/12/17 [Rx] Ondansetron ODT [Zofran ODT] 4 mg SL Q6HR #10 tab.rapdis 04/12/17 [Rx] Folic Acid/Vit Bcomp,C [Renal Vitamin Tablet] 0.8 mg PO DAILY 04/15/17 [History] Oxycodone HCl [Oxycontin] 60 mg PO BID 04/15/17 [History] Oxycodone HCl/Acetaminophen [Percocet 10-325 mg Tablet] 1 tab PO Q6H PRN [History] Allergies No Known Allergies Allergy (Verified 01/12/17 11:29) All Systems Review: A 10-system review of systems was performed and is negative for pertinent findings except as documented above in the HPI. Physical Examination Vital Signs, Last 4 Hours Temp Pulse Resp BP Pulse Ox 04/15/17 06:50 99.6 F 82 18 121/60 98 General: Conversant, No Apparent Distress HEENT: Atraumatic, Normocephaly, Mucus Membranes Moist Neck: No JVD, Normal carotid pulses Cardiac: Reg Rate and Rhythm, Normal S1 and S2, No Murmur Lungs: Other (Rhonci scattered throught upper posterior lobes, dry cough noted) Neuro: Alert and responsive, No focal deficits noted Abdomen: Soft, Non-Tender Skin: No rashes noted on visualized skin Musculoskeletal: Other (Midsternal chest with reproducible pain. ) Extremities: No Clubbing, No Cyanosis, Normal Pulses, Other (2+ ankle edema with redness discoloration on BLE. ) Results 04/14/17 21:48 04/15/17 04:36 Lab Results 04/15/17 04/15/17 04/15/17 04:36 04:36 09:25 Sodium 132 L Potassium 4.3 Chloride 99 Carbon Dioxide 23 BUN 27 H Creatinine 3.56 H Glucose 63 L Calcium 8.5 L Magnesium 1.7 Troponin I 0.01 0.02 - Imaging and Cardiology Stress Test: report reviewed Echo: report reviewed Cardiac cath: report reviewed - EKG Interpretation EKG results cardiology: personally reviewed (atrial fibrillation, no acute ST changes.) Consult Discharge Plan - Plan Referrals: Tristen Quintana MD [Primary Care Provider] - <Laisha Shepherd - Last Filed: 04/15/17 11:54> Date of Encounter: 04/15/17 Assessment and Plan Discussion w patient/family: The assessment and plan as outlined above was discussed with the patient and/or family members who expressed understanding and agreement. All questions were answered. Thank you for involving us in the care of your patient. Please call with any questions. History of Present Illness History of present illness: Ms. Riley is a 62 year old female All Systems Review: A 10-system review of systems was performed and is negative for pertinent findings except as documented above in the HPI. Physical Examination Vital Signs, Last 4 Hours Resp Pulse Ox 04/15/17 11:07 16 99 Results 04/14/17 21:48 04/15/17 04:36 Lab Results 04/15/17 04/15/17 04/15/17 04:36 04:36 09:25 Sodium 132 L Potassium 4.3 Chloride 99 Carbon Dioxide 23 BUN 27 H Creatinine 3.56 H Glucose 63 L Calcium 8.5 L Magnesium 1.7 Troponin I 0.01 0.02 - Attending Attestation I examined this patient and my medical decision-making was reviewed with the DANCE INSTRUCTOR/PA/Advanced Practice Nurse/Resident Physician. I agree with the documented findings, disposition and treatment plan. Ms. Riley presents with atypical chest pain, negative troponins and no acute ECG findings. Most recent LHC in October 2016 showed stable CAD. No further testing is warranted from a cardiac perspective. Continue medical management. Imdur added. Of note, it appears that recent ECGs have demonstrated AFIB which is a new diagnosis (after review of medical records). She is rate controlled. CHADSVASC is 5. Also noted to have history of hypercoaguable state and DVTs. However, with a history of GIB and anemia, Hgb 7-8 last month. Ideally, we would recommend full anticoagulation. However, would appreciate GI consultation and evaluation to help guide management.
[2017-04-15] MEDS: Tiotropium 18 MCG inhalation IH SCH (11:07)
[2017-04-15] MEDS: Insulin LISPRO 300 UNITS/3 ML VIAL SQ SCH ×3 (11:14→22:06)
[2017-04-15] MEDS: Isosorbide MONOnitrate (24 HR) 30 MG TAB.ER.24H PO SCH (11:20)
--- NOTE | 2017-04-15 12:23 | Electrocardiograph Report ---
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
--- NOTE | 2017-04-15 12:33 | Electrocardiograph Report ---
[place] [id number] Test Date: 2017-04-15 Pat Name: Lynnette Riley Department: 112 Room: 2A Gender: F Relationship Associate: : 1955 Requested By: Wilmer Blanco Order Number: [id number] Reading MD: Edmundo Cardenas MD Measurements Intervals [place] Rate: 83 P: [place]: 0 QRS: 64 QRSD: 90 T: 49 QT: 356 QTc: 396 Interpretive Statements ATRIAL FLUTTER Electronically Signed On 04-15-2017 12:31:16 EDT by Edmundo Cardenas MD
--- NOTE | 2017-04-15 12:55 | Nephrology Consult Note ---
Date of Encounter: 04/15/17 Time of Encounter: 10:15 Assessment and Plan (1) ESRD on hemodialysis Current Visit: Yes Status: Chronic Completed HD yesterday Next HD is planned for tomorrow. Follow standard ESRD precautions. Thank you for consulting the [facility] group. (2) HTN (hypertension) Current Visit: Yes Status: Chronic Qualifiers: Hypertension type: essential hypertension Qualified Code(s): I10 - Essential (primary) hypertension (3) Healing pressure ulcer stage II Current Visit: No Status: Chronic As per primary History of Present Illness - Reason for Consult Consult date: 04/15/17 end stage renal disease - Chief Complaint Hx of ESRD - History of Present Illness Lynnette Riley is a very pleasant 62 y/o obese WF with a pmh of HTN, ESRD on HD M/ / and et al who presented with AMS. Her primary regenerator operator is Dr. Rivers. She completed HD yesterday for a full treatment. She has been seeing wound care for heal pressure ulcers. She did not affirm skin lesion above her heals near her groin. She did not affirm N/V/D, F/C or CP. She dialyzes at [facility] in [place], [place]. Past Med Surg Social Fam HX - Past Medical History Medical history: arthritis, asthma, atrial fibrillation, CHF, COPD, coronary artery disease, CVA, DVT, diabetes, dialysis, fibromyalgia, GERD, GI bleed, hyperlipidemia, hypertension, kidney stones, migraine, myocardial infarction, osteoporosis, peripheral artery disease, renal disease, other Psychiatric history: anxiety, depression, schizophrenia, previous psychiatric hospitalization, other - Past Surgical History Surgical History: angioplasty/stent, appendectomy, cholecystectomy, coronary bypass (CABG), hysterectomy, knee replacement, other, IVC filter - Social History Smoking Status: Former smoker Smokeless Tobacco Status: No Alcohol use: none Drug use: none - Family History Father Living Status: Hx Family Cardiac Disorders: Yes Hx Family Endocrine Disorder: Yes Mother Living Status: Still Living Hx Family Respiratory Disorders: Yes (end stage copd) Medications and Allergies Clopidogrel [Plavix] 75 mg PO DAILY 05/11/15 [History] Omeprazole [PriLOSEC] 20 mg PO BID 05/11/15 [History] Rosuvastatin [Crestor] 40 mg PO HS 05/11/15 [History] Sevelamer [Renvela] 800 mg PO TIDWM 05/11/15 [History] Colestipol HCl [Colestid] 1 gm PO BID 06/12/15 [History] Carvedilol 12.5 mg PO BID 10/28/15 [History] amLODIPine [Norvasc] 5 mg PO DAILY 06/09/16 [History] Gabapentin [Neurontin] 200 mg PO TID 30 Days 06/18/16 [Rx] Calcium Acetate [Phos-LO] 667 mg PO TIDWM 09/06/16 [History] Furosemide [Lasix] 80 mg PO BID 09/06/16 [History] metOLazone [Zaroxolyn] 2.5 mg PO MOWEFR 09/06/16 [History] Albuterol Sulfate [Ventolin Hfa] 2 puff IH Q4H PRN 12/29/16 [History] Tiotropium [Spiriva] 1 puff IH DAILY 01/12/17 [History] GuaiFENesin/Dextromethorphan [Robitussin/Dm] 10 ml PO Q6HR udc 01/22/17 [Rx] Insulin LISPRO [HumaLOG] 0 - 16 units SQ TIDAC 02/05/17 [History] Insulin Glargine,Hum.rec.anlog [Lantus Solostar] 43 unit SQ BID #0 02/10/17 [Rx ] Sennosides/Docusate Sodium [Senna Plus] 1 tab PO DAILY 03/26/17 [History] Darbepoetin [Aranesp] 40 mcg SQ QWEEK #4 syringe 03/30/17 [Rx] OxyCODONE ER (12 HR) [OxyCONTIN] 20 mg PO Q12HR #14 tab.er.12h 03/30/17 [Rx] Metoclopramide [Reglan] 10 mg PO Q6HR 2 Days 04/12/17 [Rx] Ondansetron ODT [Zofran ODT] 4 mg SL Q6HR #10 tab.rapdis 04/12/17 [Rx] Folic Acid/Vit Bcomp,C [Renal Vitamin Tablet] 0.8 mg PO DAILY 04/15/17 [History] Oxycodone HCl [Oxycontin] 60 mg PO BID 04/15/17 [History] Oxycodone HCl/Acetaminophen [Percocet 10-325 mg Tablet] 1 tab PO Q6H PRN [History] Allergies No Known Allergies Allergy (Verified 01/12/17 11:29) Review of Systems All Systems: reviewed and no additional remarkable complaints except as stated Exam - Vital Signs Vital signs: Initial Vital Signs Temp Pulse Resp BP Pulse Ox 98.9 F 88 22 126/66 100 04/14/17 21:17 04/14/17 21:17 04/14/17 21:17 04/14/17 21:17 04/14/17 21:17 Vital Signs - Last 8 Hours Temp Pulse Resp BP Pulse Ox 04/15/17 11:07 16 99 04/15/17 06:50 99.6 F 82 18 121/60 98 Intake and Output 04/14/17 04/15/17 04/15/17 23:59 07:59 15:59 Intake Total 0 / 0 0 / 0 Balance 0 / 0 0 / 0 Intake: Oral 0 / 0 0 / 0 Other: Meal npo Percent of Meal Consumed 0% # Voids 1 Weight 115.2 kg Blood Glucose* 65 51 Patient Weight 04/15/17 23:59 Weight 115.2 kg - General Appearance Exam: General appearance: well-developed, obese, chronically ill, fatigue, frail EENT: ATNC, PERRL, mucous membranes moist Neck: supple Respiratory: course breath sounds Cardiology: edema, regular rate, regular rhythm, normal S1, normal S2 - Dialysis Access Dialysis Vascular Access: Arteriovenous Graft thrill: Yes bruit: Yes Gastrointestinal: normoactive bowel sounds, no tenderness, no guarding Integumentary: warm and dry Neurologic: no asterixis, A/Ox3 Musculoskeletal: no deformities, no erythema, no cyanosis Psychiatric: mood/affect appropriate, cooperative Results - Lab Results 04/14/17 21:48 04/15/17 04:36 Most recent lab results Calcium 8.5 mg/dL (8.6-10.8) L 04/15/17 04:36 Phosphorus 4.7 mg/dL (2.3-4.7) 04/15/17 04:36 Magnesium 1.7 mg/dL (1.6-2.6) 04/15/17 04:36 I reviewed the above auto generated data tran including labs, meds, vitals, progress notes and imaging. Consult Discharge Plan - Plan Referrals: Tristen Quintana MD [Primary Care Provider] -
--- NOTE | 2017-04-15 17:00 | Event Note ---
<Rachelle Flynn - Last Filed: 04/15/17 17:12> Date of Encounter: 04/15/17 Time of Encounter: 16:30 Lynnette is somewhat confused, but notes a history of anemia and blood transfusions (no records available for review), EGD and colonoscopy within the last year, but she is unsure with whom, and there are no records available for review. She states she has been on warfarin in the past, but her PCP stopped this d/t her fall risk. She remains on clopidogrel. Her Hbg is stable at this time. There is no indication for need for scoping at this time. From a GI perspective she is ok to start anticoagulation. We are available for consult and consideration for endoscopy if she develops s/s of acute GI bleeding. Reviewed with Dr. Calero. Please re-consult general surgery if indicated. <Harman Calero - Last Filed: 04/15/17 20:34> Date of Encounter: 04/15/17 The patient is seen and evaluated with the clinical nurse practitioner. Endoscopy has been performed within the last year. I do not think that the patient would benefit from further screening. If anticoagulation is indicated in this patient this should be initiated and we can always evaluate the patient if there are signs of active bleeding. I do not believe that the patient would benefit from endoscopy at this time Harman Calero MD FACS
[2017-04-16] MEDS: *HR* Heparin 5,000 UNIT/ML VIAL SQ SCH ×3 (04:59→21:11)
[2017-04-16] MEDS: *HR* OxyCODONE ER (12 HR) 20 MG TABLET PO SCH ×2 (04:59→17:26)
[2017-04-16 05:44] LABS: Hematocrit 28.8 % (35.3-44.9); Mean Corpuscular HGB Conc 30.2 g/dL (31.6-35.5); Mean Corpuscular Hemoglobin 23.3 pg (28.0-33.3); Mean Corpuscular Volume 77.2 fL (83.0-100.0); Mean Platelet Volume 10.3 fL (9.4-12.4); Platelet Count 187 K/mcL (140-400); Red Blood Count 3.73 M/mcL (3.82-4.97); Red Cell Distribution Width 19.2 % (11.5-14.5)
[2017-04-16 05:48] LABS: Hemoglobin 8.7 g/dL (11.5-15.4)
[2017-04-16 06:17] LABS: Potassium 5.2 mEq/L (3.5-4.5)
[2017-04-16] MEDS: Tiotropium 18 MCG inhalation IH SCH (08:06)
[2017-04-16] MEDS ORDERED: 0.9 % Sodium Chloride 250 ML IVC PRN (08:10)
[2017-04-16] MEDS: Insulin LISPRO 300 UNITS/3 ML VIAL SQ SCH ×4 (09:17→21:12)
[2017-04-16] MEDS: Calcium Acetate 667 MG CAPSULE PO SCH ×3 (09:17→17:26)
--- NOTE | 2017-04-16 09:20 | Cardiology Progress Note ---
Date of Encounter: 04/16/17 Time of Encounter: 08:30 Assessment and Plan (1) Chest pain Current Visit: Yes Status: Acute Atypical chest pain. Likely muscle skeletal in the setting of cough for one month. Known CAD. Last C was in October 2016 that showed stable CAD. No intervention at that time. There was severe one vessel CAD with patent SVG to PDA graft to that area. 50-60% stenosis in the pLAD, 50% stenosis mCX, 99% stenosis pRCA, 90 % stenosis mRCA. SVG-PDA was patent. She is noted to have poor f/u with cardiology since that time. Last stress 08/2016- pharmacologic stress test negative for ischemia. TTE 12/2015-EF 55-60%, mild LVH, Mild diastolic dysfunction, mild aortic regurgitation, mild mitral regurgitation. Will add imdur d/t CAD. No further cardiology work-up recommended at this time. Continue medical management. Qualifiers: Chest pain type: chest pain on breathing Qualified Code(s): R07.1 - Chest pain on breathing (2) CAD (coronary artery disease) Current Visit: Yes Status: Chronic H/o CABG 1V and previous PCI. Continue asa, statin, bb. Add imdur. Poor cardiology f/u previously. [place] [facility] will coordinate out-pt f/u. Call with questions. Qualifiers: Coronary Disease-Associated Artery/Lesion type: [place] artery [place] vs. transplanted heart: [place] heart Associated angina: with unstable angina Qualified Code(s): I25.110 - Atherosclerotic heart disease of [place] coronary artery with unstable angina pectoris (3) Atrial fibrillation Current Visit: Yes Status: Chronic EKG shows atrial fibrillation. Noted to have rate controlled atrial fibrillation on telemetry. EKG in March showed afib. No cardiology f/u since that time. CHADS VASc= 5 for HTN, DM, CVA2, CAD. She also is noted to have history of DVT and hypercoagulable state. H/o GI bleed and anemia of chronic disease noted. GI consult yesterday--no plan for EGD this admission. H/H continues to downtrend. She is not a ideal candidate for full AC; patient states she was taken off coumadin by PCP due to "high risk for bleeding." Recommend continuation of asa and plavix at this time, can consider resuming full anticoagulation in the future. Follow-up with Dr. Cardenas in the outpatient setting. Qualifiers: Atrial fibrillation type: paroxysmal Qualified Code(s): I48.0 - Paroxysmal atrial fibrillation Discussion w patient/family: The assessment and plan as outlined above was discussed with the patient and/or family members who expressed understanding and agreement. All questions were answered. Thank you for involving us in the care of your patient. Please call with any questions. The patient was discussed and reviewed with Dr. Shepherd who agrees with plan as stated above. Plan communicated with primary service. Subjective Principal diagnosis: Atypical chest pain, afib, anemia Interval history: Seen and examined in dialysis. Continues to have atypical chest discomfort--worsens with coughing. Appears oriented today, less confused. Denies any other symptoms. Objective Vital Signs, Last 4 Hours Temp Pulse Resp BP Pulse Ox 04/16/17 08:07 16 95 04/16/17 08:00 97.5 F L 83 18 120/58 93 General: Conversant, No Apparent Distress, Other (obese) HEENT: Atraumatic, Normocephaly, Mucus Membranes Moist Cardiac: Other (irregularly irregular) Lungs: Normal Breath Sounds Neuro: Alert and responsive Abdomen: Soft, Other (obese) Extremities: Other (large extremities) Results 04/16/17 05:09 04/16/17 05:09 Lab Results 04/15/17 04/16/17 04/16/17 09:25 05:09 05:09 WBC 10.2 Hgb 8.7 L D Hct 28.8 L Plt Count 187 Sodium 129 L Potassium 5.2 H Chloride 95 L Carbon Dioxide 21 BUN 39 H D Creatinine 4.09 H Glucose 144 H Calcium 9.0 Troponin I 0.02 Active Medications Albuterol Sulfate (Proventil Neb) 2.5 mg IH [id number] PRN; Protocol PRN Reason: Shortness Of Breath/Wheezing Stop: 10/15/17 04:51 Amlodipine Besylate (Norvasc) 5 mg PO DAILY NATALIE PRN Reason: Protocol Stop: 10/15/17 09:01 Last Admin: 04/15/17 08:33 Dose: 5 mg Calcium Acetate (Phos-Lo) 667 mg PO TIDWM [facility] Stop: 10/15/17 08:01 Last Admin: 04/16/17 09:17 Dose: Not Given Carvedilol (Coreg) 12.5 mg PO BIDWM [facility] Stop: 10/15/17 08:36 Last Admin: 04/15/17 16:59 Dose: 12.5 mg Clopidogrel Bisulfate (Plavix) 75 mg PO DAILY [facility] Stop: 10/15/17 09:01 Last Admin: 04/16/17 09:23 Dose: 75 mg Dextrose/Water (Dextrose 50% (Syg)) 25 ml IVP AD PRN PRN Reason: Hypoglycemia Stop: 10/15/17 08:34 Gabapentin (Neurontin) 100 mg PO TID [facility] Stop: 10/15/17 09:01 Last Admin: 04/16/17 09:23 Dose: 100 mg Glucagon (Glucagen) 1 mg IM ONCE PRN PRN Reason: Hypoglycemia Stop: 10/15/17 08:34 Glucose (Gluctose) 15 gm PO ONCE PRN PRN Reason: Hypoglycemia Stop: 10/15/17 08:34 Last Admin: 04/15/17 08:41 Dose: 15 gm Glucose (Gluctose) 30 gm PO ONCE PRN PRN Reason: Hypoglycemia Stop: 10/15/17 08:34 Heparin Sodium (Porcine) (Heparin) 5,000 unit SQ Q8HCO [facility] Stop: 10/15/17 06:01 Last Admin: 04/16/17 04:59 Dose: 5,000 unit Dextrose (Dextrose 5%) 1,000 mls @ 100 mls/hr IVC .Q10H PRN PRN Reason: HYPOGLYCEMIA Stop: 10/15/17 08:34 Sodium Chloride (0.9 % Sodium Chloride) 250 mls @ 937.5 mls/hr IVC .Q16M PRN PRN Reason: Hypotension Stop: 10/16/17 08:11 Insulin Human Lispro (Humalog) 0 units SQ HS [facility] PRN Reason: Protocol Stop: 10/15/17 21:01 Last Admin: 04/15/17 22:06 Dose: Not Given Insulin Human Lispro (Humalog) 0 units SQ TIDAC [facility] PRN Reason: Protocol Stop: 10/15/17 11:31 Last Admin: 04/16/17 09:17 Dose: Not Given Isosorbide Mononitrate (Imdur) 30 mg PO DAILY [facility] Stop: 10/15/17 11:01 Last Admin: 04/16/17 09:23 Dose: 30 mg Metoclopramide HCl (Reglan) 10 mg PO Q6HR NATALIE Stop: 10/15/17 06:01 Last Admin: 04/16/17 04:59 Dose: 10 mg Naloxone HCl (Narcan) 0.4 mg IVP Q2MIN PRN PRN Reason: Opioid Reversal Stop: 10/15/17 02:25 Omeprazole (Prilosec) 20 mg PO BIDAC NATALIE PRN Reason: Protocol Stop: 10/15/17 08:37 Last Admin: 04/16/17 09:23 Dose: 20 mg Ondansetron HCl (Zofran) 4 mg IVP Q6HR PRN PRN Reason: Nausea And Vomiting Stop: 10/15/17 02:25 Oxycodone HCl (Oxycontin) 20 mg PO Q12HR NATALIE Stop: 10/15/17 06:01 Last Admin: 04/16/17 04:59 Dose: 20 mg Rosuvastatin Calcium (Crestor) 40 mg PO HS NATALIE Stop: 10/15/17 21:01 Last Admin: 04/15/17 20:53 Dose: 40 mg Senna/Docusate Sodium (Senna Plus) 1 each PO DAILY NATALIE PRN Reason: Protocol Stop: 10/15/17 09:01 Last Admin: 04/16/17 09:23 Dose: 1 each Sevelamer HCl (Renvela) 800 mg PO TIDWM [facility] Stop: 10/15/17 08:01 Last Admin: 04/16/17 09:17 Dose: Not Given Tiotropium [place] (Spiriva) 18 mcg IH DAILY NATALIE PRN Reason: Protocol Stop: 10/15/17 09:01 Last Admin: 04/16/17 08:06 Dose: 18 mcg - Imaging and Cardiology Echo: report reviewed Other Results: 12 hour tele: avg HR=73 afib. No significant event noted. - EKG Interpretation EKG results cardiology: personally reviewed Consult Discharge Plan - Plan Referrals: Tristen Quintana MD [Primary Care Provider] -
[2017-04-16] MEDS: Isosorbide MONOnitrate (24 HR) 30 MG TAB.ER.24H PO SCH (09:23)
[2017-04-16] MEDS: Sennosides/Docusate Sodium TABLET PO SCH (09:23)
[2017-04-16] MEDS: Gabapentin 100 MG CAPSULE PO SCH ×3 (09:23→21:11)
[2017-04-16] MEDS ORDERED: 0.9 % Sodium Chloride 2,000 ML ONE (10:53)
--- NOTE | 2017-04-16 10:59 | Internal Med Progress Note ---
<Deepti Forte - Last Filed: 04/16/17 15:08> Date of Encounter: 04/16/17 Time of Encounter: 09:30 - Assessment and plan (1) Chest pain Current Visit: Yes Status: Acute Assessment and plan: - With negative troponin and no significant ischemic change on EKG. - Per cardiology, it's more likely musculoskeletal associated with chronic cough and no further cardiology work-up recommended at this time. Qualifiers: Chest pain type: chest pain on breathing Qualified Code(s): R07.1 - Chest pain on breathing (2) Atrial fibrillation Current Visit: Yes Status: Chronic Assessment and plan: - EKG and telemetry show A-fib. - Currently rate-controlled with Coreg. - CHADS VASc score 5 for HTN, DM, CVA and CAD. Also noted to have history of DVT. - Per patient, she was on Coumadin in the past but was taken off by PCP due "high risk for bleeding". - Given downtrending Hgb, cardiology recommends continuing aspirin and Plavix at this time and may consider full anticoagulation in the future. - Will have outpatient cardiology follow-up with Dr. Cardenas. Qualifiers: Atrial fibrillation type: paroxysmal Qualified Code(s): I48.0 - Paroxysmal atrial fibrillation (3) Anemia Current Visit: No Status: Chronic Assessment and plan: - Hgb dropped from 10.3 to 8.7 today. - Likely secondary to ESRD but patient also has history of GI bleed. - Continue to monitor H&H. Qualifiers: Anemia type: other cause Other causes of anemia: chronic disease, other Qualified Code(s): D63.8 - Anemia in other chronic diseases classified elsewhere (4) History of GI bleed Current Visit: Yes Status: Acute Assessment and plan: - Patient's last EGD in 2014 found gastritis. Colonoscopy in 2015 found diverticulosis and non-bleeding polyps. Patient had repeated colonoscopy in 2015 with clips placed for bleeding from prior polypectomy. - Dr. Calero, the endoscopist customer retention specialist, was consulted on 04/15 and recommended no further scoping at that time. - Continue omeprazole. (5) CAD (coronary artery disease) Current Visit: Yes Status: Chronic Assessment and plan: - History of CABG 1V and previous PCI. - Continue asa, statin, beta vera. Will add Imdur as recommended by cardiology. - 2-3 week outpatient follow-up with [facility] will be arranged. Qualifiers: Coronary Disease-Associated Artery/Lesion type: [place] artery [place] vs. transplanted heart: [place] heart Associated angina: with unstable angina Qualified Code(s): I25.110 - Atherosclerotic heart disease of [place] coronary artery with unstable angina pectoris (6) ESRD on hemodialysis Current Visit: Yes Status: Chronic Assessment and plan: - Patient receives hemodialysis today. (7) Diabetes Current Visit: No Status: Chronic Assessment and plan: - Continue insulin sliding scale. Qualifiers: Diabetes mellitus type: type 2 Diabetes mellitus complication status: with kidney complications Diabetes mellitus complication detail: with chronic kidney disease Diabetes mellitus residential insulin use: with residential use Chronic kidney disease stage: on chronic dialysis Qualified Code(s): E11.22 - Type 2 diabetes mellitus with diabetic chronic kidney disease; N18.6 - End stage renal disease; Z79.4 - prison (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 of insulin; Z99.2 - Dependence on renal dialysis (8) HTN (hypertension) Current Visit: Yes Status: Chronic Assessment and plan: - BP within normal range. - Continue current antihypertensive regimen. Qualifiers: Hypertension type: essential hypertension Qualified Code(s): I10 - Essential (primary) hypertension (9) Venous stasis dermatitis of both lower extremities Current Visit: Yes Status: Chronic (10) Morbid (severe) obesity due to excess calories Current Visit: Yes Status: Chronic Assessment and plan: - BMI 39.8 - Subjective Interval history: No significant event noted overnight. Patient was seen and examined this morning while patient got her hemodialysis. Patient still complains some shortness of breath and pain with cough. Patient denies fever, chills, nausea, vomiting. Patient reports no bowel movement for 3 days. - Constitutional Vitals: Temp Pulse Resp BP Pulse Ox 97.7 F 83 16 138/61 95 04/16/17 09:00 04/16/17 08:00 04/16/17 09:00 04/16/17 10:00 04/16/17 08:07 General appearance: Present: cooperative, A&O X 3, obese - Head Head exam: Present: atraumatic, normocephalic - Eye Eye exam: Present: EOMI, PERRL, conjuntiva pink, sclera anicteric - Neck Neck exam general surgery: Present: supple, trachea midline. Absent: lymphadenopathy - Respiratory Respiratory exam: Present: chest wall tenderness (Reproducible chest pain on palpation. ), CTAB. Absent: accessory muscle use, rales, rhonchi, wheezes - Cardiovascular Cardiovascular exam: Present: RRR, +S1, +S2. Absent: diastolic murmur, gallop, rubs, systolic murmur - GI/Abdominal GI/Abdominal exam: Present: normal bowel sounds, soft, no peritoneal signs. Absent: distended, tenderness - Extremities Exam Extremities exam: Present: warm, radial pulses palpable and symetrical. Absent : calf tenderness, cyanotic, pedal edema - Neurological Exam Neurological exam: Present: CN II-XII intact, oriented X3, no focal deficits. Absent: pronater drift, facial droop, speech deficit - Skin Skin exam: Present: dry, intact, warm Internal Medicine: Result - Labs CBC & Chem 7: 04/16/17 05:09 04/16/17 05:09 Labs: Short CBC 04/16/17 Range/Units 05:09 WBC 10.2 (4.3-11.1) K/mcL Hgb 8.7 L D (11.5-15.4) g/dL Hct 28.8 L (35.3-44.9) % Plt Count 187 (140-400) K/mcL BMP 04/16/17 05:09 Sodium 129 L Potassium 5.2 H Chloride 95 L Carbon Dioxide 21 BUN 39 H D Creatinine 4.09 H Glucose 144 H Calcium 9.0 - ABG Interpretation ABG results: PT/INR, D-dimer PT 14.1 Seconds (9.4-12.1) H 04/14/17 21:48 Consult Discharge Plan - Plan Referrals: Tristen Quintana MD [Primary Care Provider] - <Wilmer Blanco - Last Filed: 04/16/17 17:50> Date of Encounter: 04/16/17 - Assessment and plan (1) Acute and chronic respiratory failure Current Visit: Yes Status: Acute Qualifiers: Respiratory failure complication: hypoxia Qualified Code(s): J96.20 - Acute and chronic respiratory failure, unspecified whether with hypoxia or hypercapnia (2) Chest pain Current Visit: Yes Status: Acute Assessment and plan: Appears to be noncardiac and atypical Qualifiers: Chest pain type: precordial pain Qualified Code(s): R07.2 - Precordial pain (3) Diabetes Current Visit: Yes Status: Chronic Assessment and plan: Following glucose Qualifiers: Diabetes mellitus type: type 2 Diabetes mellitus complication status: with kidney complications Diabetes mellitus complication detail: with chronic kidney disease Diabetes mellitus intermediate school teacher insulin use: with intermediate school teacher use Chronic kidney disease stage: on chronic dialysis Qualified Code(s): E11.22 - Type 2 diabetes mellitus with diabetic chronic kidney disease; N18.6 - End stage renal disease; Z79.4 - manager long term care (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 of insulin; Z99.2 - Dependence on renal dialysis (4) COPD (chronic obstructive pulmonary disease) Current Visit: Yes Status: Chronic Assessment and plan: Continue supportive care. Qualifiers: COPD type: chronic bronchitis Chronic bronchitis type: simple Qualified Code(s): J41.0 - Simple chronic bronchitis (5) Venous stasis dermatitis of both lower extremities Current Visit: Yes Status: Chronic (6) Morbid obesity with BMI of 40.0-44.9, adult Current Visit: No Status: Chronic - Constitutional Vitals: Temp Pulse Resp BP Pulse Ox 99.0 F 109 18 112/72 97 04/16/17 15:03 04/16/17 15:03 04/16/17 15:03 04/16/17 15:03 04/16/17 15:03 Internal Medicine: Result - Labs CBC & Chem 7: 04/16/17 05:09 04/16/17 05:09 Labs: Short CBC 04/16/17 Range/Units 05:09 WBC 10.2 (4.3-11.1) K/mcL Hgb 8.7 L D (11.5-15.4) g/dL Hct 28.8 L (35.3-44.9) % Plt Count 187 (140-400) K/mcL BMP 04/16/17 05:09 Sodium 129 L Potassium 5.2 H Chloride 95 L Carbon Dioxide 21 BUN 39 H D Creatinine 4.09 H Glucose 144 H Calcium 9.0 - ABG Interpretation ABG results: PT/INR, D-dimer PT 14.1 Seconds (9.4-12.1) H 04/14/17 21:48 - Attending Attestation I examined this patient and my medical decision-making was reviewed with the Resident Physician on 04/16/17. I agree with the documented findings, disposition and treatment plan as described except to the extent set forth below. Ms. Riley is currently admitted for chest pain and anemia. She is moderate risk due to the potential for worsening cardiac issues. Ms. Riley appears to be more alert today. She had dialysis. No fever or chills. No overt bleeding noted. H/H lower today. Exam Alert. Comfortable Heart reg Lungs clear Abd soft and nontender I/P 1. Chest pain - appreciate cardiac input 2. Parox a fib - 3. Anemia - recheck tomorrow Further diagnoses and plan as above. Anticipate return to SNF over weekend if H/H stable.
[2017-04-16] MEDS: amLODIPine 5 MG TABLET PO SCH (13:00)
--- NOTE | 2017-04-16 18:22 | Nephrology Progress Note ---
Date of Encounter: 04/16/17 Time of Encounter: 10:15 - Assessment and Plan (1) ESRD on hemodialysis Current Visit: Yes Status: Chronic HD today for clearance and volume. Will assess for HD or UF tomorrow (Wednesday). (2) HTN (hypertension) Current Visit: Yes Status: Chronic Continue home Rx Qualifiers: Hypertension type: essential hypertension Qualified Code(s): I10 - Essential (primary) hypertension (3) Healing pressure ulcer stage II Current Visit: No Status: Chronic She has been seeing wound care as an outpt; most consistent with pressure ulcers and not move up her legs (so I do not suspect calciphylaxis at this time) . Subjective Principal diagnosis: Atypical chest pain, afib, anemia Interval history: Pt was s/e while on HD earlier today (delayed note entry). She did not affirm N/ V/D. Still has LE heal wounds she reported. No new cramping or dialysis related symptoms; she was seen/examined while on HD. Objective - Vital Signs Vital signs: Vital Signs Temp Pulse Resp BP Pulse Ox 04/16/17 15:03 99.0 F 109 18 112/72 97 04/16/17 12:40 97.7 F 16 121/78 04/16/17 12:30 133/78 04/16/17 12:15 144/72 04/16/17 12:00 150/72 04/16/17 11:45 137/81 04/16/17 11:30 134/73 04/16/17 11:15 138/68 04/16/17 11:00 132/74 04/16/17 10:45 145/76 04/16/17 10:30 137/83 04/16/17 10:15 146/73 04/16/17 10:00 138/61 04/16/17 09:45 129/85 04/16/17 09:30 136/75 04/16/17 09:15 142/67 04/16/17 09:00 97.7 F 16 127/70 04/16/17 08:07 16 95 04/16/17 08:00 97.5 F L 83 18 120/58 93 04/16/17 04:46 98.2 F 68 17 123/77 93 04/15/17 23:43 97.9 F 70 17 120/76 93 04/15/17 20:43 97.6 F 75 17 116/59 93 Intake and Output 04/16/17 04/16/17 04/16/17 07:59 15:59 23:59 Intake Total 1020 / 1020 360 / 360 Output Total 4100 / 4100 Balance -3080 / -3080 360 / 360 Intake: Oral 420 / 420 360 / 360 Intake, Rinseback and 600 / 600 Flushes Output: Urine 0 / 0 Total Dialysis (HD) 4100 / 4100 Output Other: Meal Breakfast Dinner Percent of Meal Consumed 50% 75% Stool Size Large Stool Consistency formed Stool Color Brown Weight 116.02 kg Blood Glucose* 193 329 Hemodialysis Net Fluid 3500 Removed (mL) Patient Weight 04/16/17 23:59 Weight 116.02 kg - General Appearance Exam: General appearance: well-developed, obese, chronically ill, fatigue, frail EENT: ATNC, PERRL, mucous membranes moist Neck: supple Respiratory: course breath sounds Cardiology: edema, regular rate, regular rhythm, normal S1, normal S2 - Dialysis Access Dialysis Vascular Access: Arteriovenous Graft thrill: Yes bruit: Yes Gastrointestinal: normoactive bowel sounds, no tenderness, no guarding Integumentary: warm and dry with heal wounds Neurologic: no asterixis, A/Ox3 Musculoskeletal: no deformities, no erythema, no cyanosis Psychiatric: mood/affect appropriate, cooperative - Lab 04/19/17 03:20 04/19/17 05:23 Most recent lab results Calcium 9.0 mg/dL (8.6-10.8) 04/16/17 05:09 Phosphorus 4.7 mg/dL (2.3-4.7) 04/15/17 04:36 Magnesium 1.7 mg/dL (1.6-2.6) 04/15/17 04:36 Consult Discharge Plan - Plan Referrals: Tristen Quintana MD [Primary Care Provider] - (patient is from [facility]..)
[2017-04-17] MEDS: *HR* Heparin 5,000 UNIT/ML VIAL SQ SCH ×3 (05:33→23:30)
[2017-04-17] MEDS: *HR* OxyCODONE ER (12 HR) 20 MG TABLET PO SCH ×2 (05:34→17:43)
[2017-04-17 06:53] LABS: Basophils # 0.1 K/mcL (0.0-0.2); Basophils % 0.7 %; Eosinophils # 0.3 K/mcL (0.0-0.6); Eosinophils % 3.5 %; Hematocrit 30.2 % (35.3-44.9); Hemoglobin 8.8 g/dL (11.5-15.4); Immature Granulocytes % 2.2 % (0-4); Lymphocytes # 1.6 K/mcL (0.6-4.6); Lymphocytes % 18.7 %; Mean Corpuscular HGB Conc 29.1 g/dL (31.6-35.5); Mean Corpuscular Hemoglobin 22.6 pg (28.0-33.3); Mean Corpuscular Volume 77.4 fL (83.0-100.0); Mean Platelet Volume 9.9 fL (9.4-12.4); Monocytes % 11.1 %; Neutrophils # 5.5 K/mcL (1.6-8.9); Platelet Count 217 K/mcL (140-400); Red Cell Distribution Width 19.1 % (11.5-14.5); Segmented Neutrophils % 63.8 %
[2017-04-17 07:05] LABS: Potassium 4.6 mEq/L (3.5-4.5)
[2017-04-17] MEDS: Tiotropium 18 MCG inhalation IH SCH (08:48)
[2017-04-17] MEDS: amLODIPine 5 MG TABLET PO SCH (09:03)
[2017-04-17] MEDS: Isosorbide MONOnitrate (24 HR) 30 MG TAB.ER.24H PO SCH (09:03)
[2017-04-17] MEDS: Calcium Acetate 667 MG CAPSULE PO SCH ×3 (09:03→17:43)
[2017-04-17] MEDS: Sennosides/Docusate Sodium TABLET PO SCH (09:03)
[2017-04-17] MEDS: Insulin LISPRO 300 UNITS/3 ML VIAL SQ SCH ×4 (09:03→23:30)
[2017-04-17] MEDS: Gabapentin 100 MG CAPSULE PO SCH ×3 (09:04→23:30)
--- NOTE | 2017-04-17 10:23 | Event Note ---
Date of Encounter: 04/17/17 Time of Encounter: 10:22 Next HD will be tentatively planned for Wednesday (she completed HD yesterday). If any renal questions on Wednesday or Wednesday, I'm on-call and available this weekend. Thank you.
--- NOTE | 2017-04-17 12:17 | Internal Med Progress Note ---
<Deepti Forte - Last Filed: 04/17/17 13:12> Date of Encounter: 04/17/17 Time of Encounter: 10:45 - Assessment and plan (1) Dyspnea Current Visit: No Status: Acute Assessment and plan: - Patient reports persistent dyspnea and non-productive cough and no significant improvement after HD yesterday. - CXR today shows worsened bibasilar opacities, right greater than left. - Feel more likely volume overload rather than pneumonia as patient has no typical pneumonia sign/symptom such as fever, leukocytosis or sputum production. - Case was discussed with Dr. Hernandez and he agrees it's more likely from volume overload. Patient will get another HD today. - Consider starting antibiotic if patient's symptoms persist after HD today. Qualifiers: Dyspnea type: shortness of breath Qualified Code(s): R06.02 - Shortness of breath (2) Chest pain Current Visit: Yes Status: Acute Assessment and plan: - With negative troponin and no significant ischemic change on EKG. - Per cardiology, it's more likely musculoskeletal associated with chronic cough and no further cardiology work-up recommended at this time. Qualifiers: Chest pain type: chest pain on breathing Qualified Code(s): R07.1 - Chest pain on breathing (3) Atrial fibrillation Current Visit: Yes Status: Chronic Assessment and plan: - EKG and telemetry show A-fib. - Currently rate-controlled with Coreg. - CHADS VASc score 5 for HTN, DM, CVA and CAD. Also noted to have history of DVT. - Per patient, she was on Coumadin in the past but was taken off by PCP due "high risk for bleeding". - Given downtrending Hgb, cardiology recommends continuing aspirin and Plavix at this time and may consider full anticoagulation in the future. - Will have outpatient cardiology follow-up with Dr. Cardenas. Qualifiers: Atrial fibrillation type: paroxysmal Qualified Code(s): I48.0 - Paroxysmal atrial fibrillation (4) Anemia Current Visit: No Status: Chronic Assessment and plan: - Hgb stable at 8.8 today. - Likely secondary to ESRD but patient did have history of GI bleed. - Continue to monitor H&H. Qualifiers: Anemia type: other cause Other causes of anemia: chronic disease, other Qualified Code(s): D63.8 - Anemia in other chronic diseases classified elsewhere (5) History of GI bleed Current Visit: Yes Status: Acute Assessment and plan: - Patient's last EGD in 2014 found gastritis. Colonoscopy in 2015 found diverticulosis and non-bleeding polyps. Patient had repeated colonoscopy in 2014 with clips placed for bleeding from prior polypectomy. - Dr. Calero, the endoscopist health information assistant, was consulted on 04/15 and recommended no further scoping at that time. - Continue omeprazole. (6) CAD (coronary artery disease) Current Visit: Yes Status: Chronic Assessment and plan: - History of CABG 1V and previous PCI. - Continue asa, statin, beta vera. Will add Imdur as recommended by cardiology. - 2-3 week outpatient follow-up with [place] cardiology will be arranged. Qualifiers: Coronary Disease-Associated Artery/Lesion type: [place] artery [place] vs. transplanted heart: [place] heart Associated angina: with unstable angina Qualified Code(s): I25.110 - Atherosclerotic heart disease of [place] coronary artery with unstable angina pectoris (7) ESRD on hemodialysis Current Visit: Yes Status: Chronic Assessment and plan: - Patient did receive hemodialysis yesterday. - Case was discussed with Dr. Hernandez. The persistent dyspnea and cough are likely secondary to volume overload and will have another HD today. - Appreciate nephrology follow-up. (8) Diabetes Current Visit: No Status: Chronic Assessment and plan: - Continue insulin sliding scale. 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 - Continue current antihypertensive regimen. Qualifiers: Hypertension type: essential hypertension Qualified Code(s): I10 - Essential (primary) hypertension (10) Venous stasis dermatitis of both lower extremities Current Visit: Yes Status: Chronic (11) Morbid (severe) obesity due to excess calories Current Visit: Yes Status: Chronic Assessment and plan: - BMI 39.8 - Subjective Interval history: No significant event noted overnight. Patient was seen and examined this morning. Patient still has persistent shortness of breath, non-productive cough and associated chest pain. Patient states no significant improvement after HD yesterday. Patient denies fever, chills, nausea, vomiting, abdominal pain. - Constitutional Vitals: Temp Pulse Resp BP Pulse Ox 98.6 F 63 16 108/66 94 04/17/17 11:54 04/17/17 11:54 04/17/17 11:54 04/17/17 11:54 04/17/17 11:54 General appearance: Present: cooperative, A&O X 3, obese - Head Head exam: Present: atraumatic, normocephalic - Eye Eye exam: Present: EOMI, PERRL, conjuntiva pink, sclera anicteric - Neck Neck exam general surgery: Present: supple, trachea midline. Absent: lymphadenopathy - Respiratory Respiratory exam: Present: rales (Bibasilar). Absent: accessory muscle use, rhonchi, wheezes - Cardiovascular Cardiovascular exam: Present: RRR, +S1, +S2. Absent: diastolic murmur, gallop, rubs, systolic murmur - GI/Abdominal GI/Abdominal exam: Present: normal bowel sounds, soft, no peritoneal signs. Absent: distended, tenderness - Extremities Exam Extremities exam: Present: pedal edema (2+ BLE pitting edema.), warm, radial pulses palpable and symetrical. Absent: calf tenderness, cyanotic - Neurological Exam Neurological exam: Present: CN II-XII intact, oriented X3, no focal deficits. Absent: pronater drift, facial droop, speech deficit - Skin Skin exam: Present: dry, intact, warm Internal Medicine: Result - Labs CBC & Chem 7: 04/17/17 06:32 04/17/17 06:32 Labs: Short CBC 04/17/17 Range/Units 06:32 WBC 8.7 (4.3-11.1) K/mcL Hgb 8.8 L (11.5-15.4) g/dL Hct 30.2 L (35.3-44.9) % Plt Count 217 (140-400) K/mcL Neutrophils # 5.5 (1.6-8.9) K/mcL BMP 04/17/17 06:32 Sodium 129 L Potassium 4.6 H Chloride 93 L Carbon Dioxide 28 BUN 33 H Creatinine 3.42 H Glucose 258 H Calcium 9.0 - ABG Interpretation ABG results: PT/INR, D-dimer PT 14.1 Seconds (9.4-12.1) H 04/14/17 21:48 - Impressions Impressions Chest X-Ray 04/17/17 10:10 IMPRESSION: Worsened bibasilar opacities, right much more than left, concerning for worsening atelectasis and/or multifocal infiltrates. Worsened pulmonary vascular congestion and superimposed pulmonary edema not excluded. There are also suspected bilateral pleural effusions, similar to prior exam. Stable cardiomegaly. D/ / 04/17/2017 11:35:00 Tod Shaver MD / earnold Interpreting Provider: Tod Shaver MD Consult Discharge Plan - Plan Referrals: Tristen Quintana MD [Primary Care Provider] - <Wilmer Blanco - Last Filed: 04/17/17 15:12> Date of Encounter: 04/17/17 - Assessment and plan (1) Acute and chronic respiratory failure Current Visit: Yes Status: Acute Qualifiers: Respiratory failure complication: hypoxia Qualified Code(s): J96.20 - Acute and chronic respiratory failure, unspecified whether with hypoxia or hypercapnia (2) Pulmonary edema Current Visit: Yes Status: Acute Qualifiers: Chronicity: chronic Qualified Code(s): J81.1 - Chronic pulmonary edema (3) Chest pain Current Visit: Yes Status: Acute Qualifiers: Chest pain type: precordial pain Qualified Code(s): R07.2 - Precordial pain (4) Diabetes Current Visit: Yes Status: Chronic Qualifiers: Diabetes mellitus type: type 2 Diabetes mellitus complication status: with kidney complications Diabetes mellitus complication detail: with chronic kidney disease Diabetes mellitus extermination inspector insulin use: with extermination inspector use Chronic kidney disease stage: on chronic dialysis Qualified Code(s): E11.22 - Type 2 diabetes mellitus with diabetic chronic kidney disease; N18.6 - End stage renal disease; Z79.4 - [facility] (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 of insulin; Z99.2 - Dependence on renal dialysis (5) COPD (chronic obstructive pulmonary disease) Current Visit: Yes Status: Chronic Qualifiers: COPD type: chronic bronchitis Chronic bronchitis type: simple Qualified Code(s): J41.0 - Simple chronic bronchitis (6) Venous stasis dermatitis of both lower extremities Current Visit: Yes Status: Chronic (7) Morbid obesity with BMI of 40.0-44.9, adult Current Visit: No Status: Chronic - Constitutional Vitals: Temp Pulse Resp BP Pulse Ox 98.0 F 63 18 135/71 94 04/17/17 13:10 04/17/17 11:54 04/17/17 13:10 04/17/17 14:55 04/17/17 11:54 Internal Medicine: Result - Labs CBC & Chem 7: 04/17/17 06:32 04/17/17 06:32 Labs: Short CBC 04/17/17 Range/Units 06:32 WBC 8.7 (4.3-11.1) K/mcL Hgb 8.8 L (11.5-15.4) g/dL Hct 30.2 L (35.3-44.9) % Plt Count 217 (140-400) K/mcL Neutrophils # 5.5 (1.6-8.9) K/mcL BMP 04/17/17 06:32 Sodium 129 L Potassium 4.6 H Chloride 93 L Carbon Dioxide 28 BUN 33 H Creatinine 3.42 H Glucose 258 H Calcium 9.0 - ABG Interpretation ABG results: PT/INR, D-dimer PT 14.1 Seconds (9.4-12.1) H 04/14/17 21:48 - Impressions Impressions Chest X-Ray 04/17/17 10:10 IMPRESSION: Worsened bibasilar opacities, right much more than left, concerning for worsening atelectasis and/or multifocal infiltrates. Worsened pulmonary vascular congestion and superimposed pulmonary edema not excluded. There are also suspected bilateral pleural effusions, similar to prior exam. Stable cardiomegaly. D/ / 04/17/2017 11:35:00 Tod Shaver MD / earnold Interpreting Provider: Tod Shaver MD - Attending Attestation I examined this patient and my medical decision-making was reviewed with the Resident Physician on 04/17/17. I agree with the documented findings, disposition and treatment plan as described except to the extent set forth below. Ms. Riley is currently admitted for dyspnea most likely related to volume overload. She has had some pleuritic CP as well. She remains moderate to high risk due to potential for worsening respiratory symptoms. Ms. Riley is resting OK. No new issues overnight. She still feels dyspneic and has some dry cough. No further or new chest pain. No bowel symptoms. Exam Alert. Comfortable Mucus membranes moist Heart irreg and not tachy Lungs diminished - no wheeze currently Edema present I/P 1. Dyspnea most likely related to volume overload - possible PNA but no leukocytosis or fever. To have additional dialysis today. 2. Chest pain seems improved 3. ESRD Further diagnoses and plan as above.
[2017-04-17] MEDS ORDERED: 0.9 % Sodium Chloride 250 ML IVC PRN (12:57)
[2017-04-17] MEDS ORDERED: 0.9 % Sodium Chloride 1,000 ML PRIME SCH (13:00)
[2017-04-17] MEDS ORDERED: 0.9 % Sodium Chloride 2,000 ML ONE (16:12)
[2017-04-17 18:22] LABS: Bilirubin,Urine Small (Negative); Blood,Urine Large (Negative); Clarity,Urine Turbid (Clear); Color,Urine Dark Yellow (Yellow); Glucose,Urine (UA) Normal (Normal); Ketones,Urine Negative (Negative); Leukocyte Esterase,Urine Large (Negative); Nitrite,Urine Negative (Negative); Protein,Urine 100 mg/dL (Neg-Trace); Specific Gravity,Urine 1.023 (1.010-1.025); Urobilinogen,Urine Normal (Normal)
[2017-04-17 18:31] LABS: Hyaline Casts,Urine None Seen per lpf (None-Few); RBC,Urine 50-100 per hpf (0-3); Squamous Epithelial Cell,Urine Many per lpf (None-Few); WBC,Urine TNTC per hpf (0-3); Yeast,Urine Many per hpf (None Seen)
[2017-04-17 18:32] LABS: Bacteria,Urine Many per hpf (None-Few)
[2017-04-17] MEDS: predniSONE 20 MG TABLET PO SCH (19:31)
[2017-04-18 03:58] LABS: Hematocrit 29.6 % (35.3-44.9); Hemoglobin 8.7 g/dL (11.5-15.4); Mean Corpuscular HGB Conc 29.4 g/dL (31.6-35.5); Mean Corpuscular Hemoglobin 22.5 pg (28.0-33.3); Mean Corpuscular Volume 76.7 fL (83.0-100.0); Mean Platelet Volume 10.1 fL (9.4-12.4); Platelet Count 228 K/mcL (140-400); Red Blood Count 3.86 M/mcL (3.82-4.97); Red Cell Distribution Width 18.7 % (11.5-14.5)
[2017-04-18 04:07] LABS: Calcium 9.4 mg/dL (8.6-10.8)
[2017-04-18] MEDS: *HR* OxyCODONE ER (12 HR) 20 MG TABLET PO SCH ×2 (05:38→17:35)
[2017-04-18] MEDS: *HR* Heparin 5,000 UNIT/ML VIAL SQ SCH ×3 (05:38→22:01)
[2017-04-18] MEDS ORDERED: Calcium Gluconate 1,000 MG in D5% in Water 100 ML IVPB ONE (08:10)
[2017-04-18] MEDS: Tiotropium 18 MCG inhalation IH SCH (08:11)
[2017-04-18] MEDS ORDERED: Insulin Human Regular 10 UNIT in 0.9 % Sodium Chloride 10 ML IV ONE ×2 (08:12→16:13)
[2017-04-18] MEDS ORDERED: Albuterol 2.5 MG/3 ML NEBULIZER ONE (08:16)
[2017-04-18] MEDS: Albuterol 2.5 MG/3 ML NEBULIZER IH SCH ×5 (08:19→23:32)
[2017-04-18 08:33] LABS: Calcium 9.7 mg/dL (8.6-10.8); Potassium 6.3 mEq/L (3.5-4.5)
[2017-04-18] MEDS: Gabapentin 100 MG CAPSULE PO SCH ×3 (09:42→22:01)
[2017-04-18] MEDS: predniSONE 20 MG TABLET PO SCH (09:43)
[2017-04-18] MEDS: Sennosides/Docusate Sodium TABLET PO SCH (09:43)
[2017-04-18] MEDS: Calcium Acetate 667 MG CAPSULE PO SCH ×3 (09:43→17:36)
[2017-04-18] MEDS: Isosorbide MONOnitrate (24 HR) 30 MG TAB.ER.24H PO SCH (09:43)
[2017-04-18] MEDS: amLODIPine 5 MG TABLET PO SCH (09:43)
[2017-04-18] MEDS: Insulin LISPRO 300 UNITS/3 ML VIAL SQ SCH ×4 (09:44→22:02)
--- NOTE | 2017-04-18 11:26 | Internal Med Progress Note ---
<Deepti Forte - Last Filed: 04/18/17 12:05> Date of Encounter: 04/18/17 Time of Encounter: 08:00 - Assessment and plan (1) Hyperkalemia Current Visit: No Status: Acute Assessment and plan: - K at 6.0 and 6.3 on repeat. - Likely secondary to hyperglycemia from prednisone (given blood glucose 371 this morning) in the setting ESRD on HD. - EKG today shows QT prolongation compared to prior EKG. Patient is asymptomatic. - Ca gluconate and 10 units of IV insulin x1 had been given. Change albuterol to schedule. Also add 45 gram of kayexalate x1 per nephrology. - Will recheck K at 3 pm. - Continue to monitor. (2) Dyspnea Current Visit: No Status: Acute Assessment and plan: - Patient reports persistent dyspnea and non-productive cough and no significant improvement after HD.. - CXR on 04/17/17 shows worsened bibasilar opacities, right greater than left. - Likely multifactorial including volume overload and possible underlying reactive airway disease. - Continue prednisone, scheduled albuterol and supplemental oxygen. Qualifiers: Dyspnea type: shortness of breath Qualified Code(s): R06.02 - Shortness of breath (3) Atrial fibrillation Current Visit: Yes Status: Chronic Assessment and plan: - EKG and telemetry on admission showed A-fib. - Currently rate-controlled with Coreg. - CHADS VASc score 5 for HTN, DM, CVA and CAD. Also noted to have history of DVT. - Per patient, she was on Coumadin in the past but was taken off by PCP due "high risk for bleeding". - Given downtrending Hgb, cardiology recommends continuing aspirin and Plavix at this time and may consider full anticoagulation in the future. - Will have outpatient cardiology follow-up with Dr. Cardenas. Qualifiers: Atrial fibrillation type: paroxysmal Qualified Code(s): I48.0 - Paroxysmal atrial fibrillation (4) Chest pain Current Visit: Yes Status: Acute Assessment and plan: - With negative troponin and no significant ischemic change on EKG. - Per cardiology, it's more likely musculoskeletal associated with chronic cough and no further cardiology work-up recommended at this time. Qualifiers: Chest pain type: chest pain on breathing Qualified Code(s): R07.1 - Chest pain on breathing (5) Anemia Current Visit: No Status: Chronic Assessment and plan: - Hgb stable at 8.7 today. - Likely secondary to ESRD but patient did have history of GI bleed. - Continue to monitor H&H. Qualifiers: Anemia type: other cause Other causes of anemia: chronic disease, other Qualified Code(s): D63.8 - Anemia in other chronic diseases classified elsewhere (6) History of GI bleed Current Visit: Yes Status: Acute Assessment and plan: - Patient's last EGD in 2014 found gastritis. Colonoscopy in 2015 found diverticulosis and non-bleeding polyps. Patient had repeated colonoscopy in 2014 with clips placed for bleeding from prior polypectomy. - Dr. Calero, the endoscopist manager acquisition, was consulted on 04/15 and recommended no further scoping at that time. - Continue omeprazole. (7) CAD (coronary artery disease) Current Visit: Yes Status: Chronic Assessment and plan: - History of CABG 1V and previous PCI. - Continue asa, statin, beta vera. Will add Imdur as recommended by cardiology. - 2-3 week outpatient follow-up with [place] cardiology will be arranged. Qualifiers: Coronary Disease-Associated Artery/Lesion type: [place] artery [place] vs. transplanted heart: [place] heart Associated angina: with unstable angina Qualified Code(s): I25.110 - Atherosclerotic heart disease of [place] coronary artery with unstable angina pectoris (8) ESRD on hemodialysis Current Visit: Yes Status: Chronic Assessment and plan: - Patient did receive extra hemodialysis yesterday. - Case was discussed with Dr. Hernandez. Will have HD tomorrow. - Appreciate nephrology follow-up. (9) Diabetes Current Visit: No Status: Chronic Assessment and plan: - Continue insulin sliding scale. 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 - Continue current antihypertensive regimen. Qualifiers: Hypertension type: essential hypertension Qualified Code(s): I10 - Essential (primary) hypertension (11) Venous stasis dermatitis of both lower extremities Current Visit: Yes Status: Chronic (12) Morbid (severe) obesity due to excess calories Current Visit: Yes Status: Chronic Assessment and plan: - BMI 39.8 - Subjective Interval history: No significant event noted overnight. Patient was seen and examined this morning. Patient still has shortness of breath about the same as yesterday but denies cough o, chest pain, fever, chills, nausea, vomiting, abdominal pain. - Constitutional Vitals: Temp Pulse Resp BP Pulse Ox 97.8 F 77 16 150/70 99 04/18/17 08:11 04/18/17 08:11 04/18/17 08:11 04/18/17 08:11 04/18/17 08:11 General appearance: Present: cooperative, A&O X 3, obese - Head Head exam: Present: atraumatic, normocephalic - Eye Eye exam: Present: EOMI, PERRL, conjuntiva pink, sclera anicteric - Neck Neck exam general surgery: Present: supple, trachea midline. Absent: lymphadenopathy - Respiratory Respiratory exam: Present: rhonchi, wheezes. Absent: accessory muscle use, rales - Cardiovascular Cardiovascular exam: Present: RRR, +S1, +S2. Absent: diastolic murmur, gallop, rubs, systolic murmur - GI/Abdominal GI/Abdominal exam: Present: normal bowel sounds, soft, no peritoneal signs. Absent: distended, tenderness - Extremities Exam Extremities exam: Present: pedal edema (BLE pitting edema, improves compared to yesterday.), warm, radial pulses palpable and symetrical. Absent: calf tenderness, cyanotic - Neurological Exam Neurological exam: Present: CN II-XII intact, oriented X3, no focal deficits. Absent: pronater drift, facial droop, speech deficit - Skin Skin exam: Present: dry, intact, warm Internal Medicine: Result - Labs CBC & Chem 7: 04/18/17 03:10 04/18/17 08:11 Labs: Short CBC 04/18/17 Range/Units 03:10 WBC 10.6 (4.3-11.1) K/mcL Hgb 8.7 L (11.5-15.4) g/dL Hct 29.6 L (35.3-44.9) % Plt Count 228 (140-400) K/mcL BMP 04/18/17 04/18/17 03:10 08:11 Sodium 125 L 124 L Potassium 6.0 H D 6.3 H Chloride 92 L 91 L Carbon Dioxide 23 20 BUN 42 H 45 H Creatinine 3.97 H 4.01 H Glucose 360 H 371 H Calcium 9.4 9.7 Urine 04/17/17 Range/Units 17:30 Urine Color Dark Yellow (Yellow) Urine Clarity Turbid A (Clear) Urine pH 5.0 (5.0-8.0) pH Units Ur Specific [place] 1.023 (1.010-1.025) Urine Protein 100 H (Neg-Trace) mg/dL Urine Glucose (UA) Normal (Normal) mg/dL - ABG Interpretation ABG results: PT/INR, D-dimer PT 14.1 Seconds (9.4-12.1) H 04/14/17 21:48 - Impressions Impressions Chest X-Ray 04/17/17 10:10 IMPRESSION: Worsened bibasilar opacities, right much more than left, concerning for worsening atelectasis and/or multifocal infiltrates. Worsened pulmonary vascular congestion and superimposed pulmonary edema not excluded. There are also suspected bilateral pleural effusions, similar to prior exam. Stable cardiomegaly. D/ / 04/17/2017 11:35:00 Tod Shaver MD / earnold Interpreting Provider: Tod Shaver MD Consult Discharge Plan - Plan Referrals: Tristen Quintana MD [Primary Care Provider] - <Wilmer Blanco - Last Filed: 04/18/17 14:36> Date of Encounter: 04/18/17 - Assessment and plan (1) Hyperkalemia Current Visit: Yes Status: Acute (2) Acute and chronic respiratory failure Current Visit: Yes Status: Acute Qualifiers: Respiratory failure complication: hypoxia Qualified Code(s): J96.21 - Acute and chronic respiratory failure with hypoxia (3) Pulmonary edema Current Visit: Yes Status: Acute Qualifiers: Chronicity: chronic Qualified Code(s): J81.1 - Chronic pulmonary edema (4) Chest pain Current Visit: Yes Status: Acute Qualifiers: Chest pain type: precordial pain Qualified Code(s): R07.2 - Precordial pain (5) Diabetes Current Visit: Yes Status: Chronic Qualifiers: Diabetes mellitus type: type 2 Diabetes mellitus complication status: with hyperglycemia Diabetes mellitus residential insulin use: with terminal worker use Qualified Code(s): E11.65 - Type 2 diabetes mellitus with hyperglycemia; Z79.4 - senior living (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 of insulin (6) COPD (chronic obstructive pulmonary disease) Current Visit: Yes Status: Chronic Qualifiers: COPD type: chronic bronchitis Chronic bronchitis type: simple Qualified Code(s): J41.0 - Simple chronic bronchitis (7) Venous stasis dermatitis of both lower extremities Current Visit: Yes Status: Chronic (8) Morbid obesity with BMI of 40.0-44.9, adult Current Visit: No Status: Chronic - Constitutional Vitals: Temp Pulse Resp BP Pulse Ox 97.8 F 90 18 121/51 97 04/18/17 08:11 04/18/17 13:11 04/18/17 08:17 04/18/17 13:11 04/18/17 08:17 Internal Medicine: Result - Labs CBC & Chem 7: 04/18/17 03:10 04/18/17 08:11 Labs: Short CBC 04/18/17 Range/Units 03:10 WBC 10.6 (4.3-11.1) K/mcL Hgb 8.7 L (11.5-15.4) g/dL Hct 29.6 L (35.3-44.9) % Plt Count 228 (140-400) K/mcL BMP 04/18/17 04/18/17 03:10 08:11 Sodium 125 L 124 L Potassium 6.0 H D 6.3 H Chloride 92 L 91 L Carbon Dioxide 23 20 BUN 42 H 45 H Creatinine 3.97 H 4.01 H Glucose 360 H 371 H Calcium 9.4 9.7 Urine 04/17/17 Range/Units 17:30 Urine Color Dark Yellow (Yellow) Urine Clarity Turbid A (Clear) Urine pH 5.0 (5.0-8.0) pH Units Ur Specific [place] 1.023 (1.010-1.025) Urine Protein 100 H (Neg-Trace) mg/dL Urine Glucose (UA) Normal (Normal) mg/dL - ABG Interpretation ABG results: PT/INR, D-dimer PT 14.1 Seconds (9.4-12.1) H 04/14/17 21:48 - Attending Attestation I examined this patient and my medical decision-making was reviewed with the Resident Physician on 04/18/17. I agree with the documented findings, disposition and treatment plan as described except to the extent set forth below. Ms. Riley is currently admitted for hypoxia and fluid overload. She is hyperkalemic today. She remains moderate to high risk due to continued issues with dyspnea, fluid and electrolytes. Ms. Riley is resting comfortably. Breathing about the same. Potassium elevated this AM and treated. No fever or chills. No GI symptoms. Now on steroids for breathing. Exam Alert. Comfortable Mucus membranes dry Heart reg at this time Lungs diminished Abd soft I/P 1. Hypoxia 2. Hyperkalemia Further diagnoses and plan as above.
--- NOTE | 2017-04-18 12:32 | Nephrology Progress Note ---
Date of Encounter: 04/18/17 Time of Encounter: 12:00 - Assessment and Plan (1) ESRD on hemodialysis Current Visit: Yes Status: Chronic On Wednesday, I initially had planned to await till Wednesday for HD, but later in the afternoon of Wednesday, the primary team had paged me asking for more fluid removal as her shortness breath had worsened in the afternoon. They thought it was COPD and edema. The pt had about 2hr of UF for roughly 3kg of UF net removal. She is hyperkalemic today: low K+ diet and I rec Kayexalate 45mg po x1 with a follow up K+ to be checked. Hyponatremic: suspect hypervolemia and in part pseudohyponatremia from her very elevated hyperglycemia (she has received steroids for the COPD component of her acute on chronic respiratory failure, which I'll defer to the primary team. Next HD is planned for Wednesday, and I've placed HD orders to help arrange for the pt to be on first shift on Wednesday AM. (2) HTN (hypertension) Current Visit: Yes Status: Chronic Qualifiers: Hypertension type: essential hypertension Qualified Code(s): I10 - Essential (primary) hypertension (3) Healing pressure ulcer stage II Current Visit: No Status: Chronic As per primary. See my note from Wednesday. Subjective Principal diagnosis: Atypical chest pain, afib, anemia Interval history: Pt was s/e. She did not affirm N/V/D. Still experiencing shotness of breath but she thinks the extra treatment on Wednesday helped. She did not affirm chest pains during my exam. Objective - Vital Signs Vital signs: Vital Signs Temp Pulse Resp BP Pulse Ox 04/18/17 08:17 18 97 04/18/17 08:11 97.8 F 77 16 150/70 99 04/18/17 07:24 97 04/18/17 03:49 98.1 F 76 18 138/65 100 04/18/17 01:36 99 04/17/17 23:39 98 F 86 16 112/63 97 04/17/17 20:06 98.7 F 75 18 106/57 96 04/17/17 18:17 16 99 04/17/17 18:06 98.3 F 97 18 152/76 97 04/17/17 15:20 98.0 F 16 148/61 04/17/17 15:10 125/59 04/17/17 14:55 135/71 04/17/17 14:40 130/67 04/17/17 14:25 132/69 04/17/17 14:10 131/75 04/17/17 13:55 138/72 04/17/17 13:40 130/67 04/17/17 13:25 131/74 04/17/17 13:10 98.0 F 18 149/80 Intake and Output 04/17/17 04/18/17 04/18/17 23:59 07:59 15:59 Intake Total 240 / 240 Balance 240 / 240 Intake: Oral 240 / 240 Other: Meal Breakfast Percent of Meal Consumed 100% Weight 115.5 kg Blood Glucose* 297 341 423 Patient Weight 04/18/17 23:59 Weight 115.5 kg - General Appearance Exam: General appearance: well-developed, obese, chronically ill, fatigue, frail EENT: ATNC, PERRL, mucous membranes moist Neck: supple Respiratory: course breath sounds Cardiology: edema, regular rate, regular rhythm, normal S1, normal S2 - Dialysis Access Dialysis Vascular Access: Arteriovenous Graft thrill: Yes bruit: Yes Gastrointestinal: normoactive bowel sounds, no tenderness, no guarding Integumentary: warm and dry with heal wounds Neurologic: no asterixis, A/Ox3 Musculoskeletal: no deformities, no erythema, no cyanosis Psychiatric: mood/affect appropriate, cooperative - Lab 04/19/17 03:20 04/19/17 05:23 Most recent lab results Calcium 9.7 mg/dL (8.6-10.8) 04/18/17 08:11 Phosphorus 4.7 mg/dL (2.3-4.7) 04/15/17 04:36 Magnesium 1.7 mg/dL (1.6-2.6) 04/15/17 04:36 Consult Discharge Plan - Plan Referrals: Tristen Quintana MD [Primary Care Provider] - ([facility])
[2017-04-19 03:46] LABS: Basophils % 0.2 %; Eosinophils # 0.1 K/mcL (0.0-0.6); Eosinophils % 0.6 %; Hematocrit 31.7 % (35.3-44.9); Hemoglobin 9.3 g/dL (11.5-15.4); Immature Granulocytes % 1.6 % (0-4); Immature Platelets 2.3 % (1.1-6.1); Lymphocytes % 9.8 %; Mean Corpuscular HGB Conc 29.3 g/dL (31.6-35.5); Mean Corpuscular Hemoglobin 22.6 pg (28.0-33.3); Mean Corpuscular Volume 77.1 fL (83.0-100.0); Mean Platelet Volume 10.5 fL (9.4-12.4); Monocytes # 0.5 K/mcL (0.0-1.3); Monocytes % 4.4 %; Neutrophils # 8.6 K/mcL (1.6-8.9); Platelet Count 222 K/mcL (140-400); Red Blood Count 4.11 M/mcL (3.82-4.97); Red Cell Distribution Width 18.7 % (11.5-14.5); Segmented Neutrophils % 83.4 %
[2017-04-19 04:11] LABS: Platelet Clumps Few (Not Present); Platelet Estimate Normal (Normal)
[2017-04-19] MEDS: Albuterol 2.5 MG/3 ML NEBULIZER IH SCH ×5 (04:51→20:03)
[2017-04-19] MEDS: *HR* Heparin 5,000 UNIT/ML VIAL SQ SCH ×2 (05:48→13:44)
[2017-04-19] MEDS: *HR* OxyCODONE ER (12 HR) 20 MG TABLET PO SCH ×2 (05:48→17:19)
[2017-04-19] MEDS ORDERED: 0.9 % Sodium Chloride 250 ML IVC PRN (06:00)
[2017-04-19 06:06] LABS: Calcium 9.4 mg/dL (8.6-10.8); Potassium 6.3 mEq/L (3.5-4.5)
[2017-04-19] MEDS ORDERED: Calcium Gluconate 1,000 MG in D5% in Water 100 ML IVPB ONE (06:44)
[2017-04-19] MEDS ORDERED: Insulin Human Regular 10 UNIT in 0.9 % Sodium Chloride 10 ML IV ONE (06:45)
[2017-04-19] MEDS ORDERED: Insulin LISPRO 300 UNITS/3 ML VIAL SQ SCH (06:46)
[2017-04-19] MEDS: predniSONE 20 MG TABLET PO SCH (07:48)
[2017-04-19] MEDS: Calcium Acetate 667 MG CAPSULE PO SCH ×3 (07:48→15:40)
[2017-04-19] MEDS: Sennosides/Docusate Sodium TABLET PO SCH (07:48)
[2017-04-19] MEDS: Gabapentin 100 MG CAPSULE PO SCH ×3 (07:48→21:27)
[2017-04-19] MEDS: Insulin LISPRO 300 UNITS/3 ML VIAL SQ SCH ×4 (07:49→21:28)
[2017-04-19] MEDS: Tiotropium 18 MCG inhalation IH SCH (08:29)
--- NOTE | 2017-04-19 10:48 | Internal Med Progress Note ---
<Deepti Forte - Last Filed: 04/19/17 14:58> Date of Encounter: 04/19/17 Time of Encounter: 10:15 - Assessment and plan (1) Hyperkalemia Current Visit: Yes Status: Acute Assessment and plan: - K at 6.3 today - Likely secondary to hyperglycemia from prednisone (given blood glucose 456 this morning) in the setting ESRD on HD. - EKG yesterday shows QT prolongation compared to prior EKG. Patient remains asymptomatic. - S/p 45 gram of kayexalate x1 yesterday. - Ca gluconate and 10 units of IV insulin x1 had been given today. And HD today will help to lower patient's K as well. - Add basal insulin and increase sliding scale insulin for better glucose control. - Continue to monitor. (2) Dyspnea Current Visit: No Status: Acute Assessment and plan: - Patient reports persistent dyspnea and non-productive cough and no significant improvement after HD.. - CXR on 04/17/17 shows worsened bibasilar opacities, right greater than left. - Likely multifactorial including volume overload and possible underlying reactive airway disease. - Improves as patient reports breathing better today. - Continue prednisone, scheduled albuterol and supplemental oxygen. Qualifiers: Dyspnea type: shortness of breath Qualified Code(s): R06.02 - Shortness of breath (3) Atrial fibrillation Current Visit: Yes Status: Chronic Assessment and plan: - EKG and telemetry on admission showed A-fib. - Currently rate-controlled with Coreg. - CHADS VASc score 5 for HTN, DM, CVA and CAD. Also noted to have history of DVT. - Per patient, she was on Coumadin in the past but was taken off by PCP due "high risk for bleeding". - Given downtrending Hgb, cardiology recommends continuing aspirin and Plavix at this time and may consider full anticoagulation in the future. - Will have outpatient cardiology follow-up with Dr. Cardenas. Qualifiers: Atrial fibrillation type: paroxysmal Qualified Code(s): I48.0 - Paroxysmal atrial fibrillation (4) Chest pain Current Visit: Yes Status: Acute Assessment and plan: - With negative troponin and no significant ischemic change on EKG. - Per cardiology, it's more likely musculoskeletal associated with chronic cough and no further cardiology work-up recommended at this time. Qualifiers: Chest pain type: chest pain on breathing Qualified Code(s): R07.1 - Chest pain on breathing (5) Anemia Current Visit: No Status: Chronic Assessment and plan: - Hgb improves to 9.3 today. - Likely secondary to ESRD but patient did have history of GI bleed. - Continue to monitor H&H. Qualifiers: Anemia type: other cause Other causes of anemia: chronic disease, other Qualified Code(s): D63.8 - Anemia in other chronic diseases classified elsewhere (6) History of GI bleed Current Visit: Yes Status: Acute (7) CAD (coronary artery disease) Current Visit: Yes Status: Chronic Qualifiers: Coronary Disease-Associated Artery/Lesion type: [place] artery [place] vs. transplanted heart: [place] heart Associated angina: with unstable angina Qualified Code(s): I25.110 - Atherosclerotic heart disease of [place] coronary artery with unstable angina pectoris (8) ESRD on hemodialysis Current Visit: Yes Status: Chronic Assessment and plan: - On HD MWF - Getting HD today. - Appreciate nephrology follow-up. (9) Diabetes Current Visit: No Status: Chronic Assessment and plan: - Add basal insulin and increase sliding scale insulin for better glucose control. 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 Patient was seen and examined this morning while getting hemodialysis. Patient reports breathing better and denies cough, chest pain, fever, chills, nausea, vomiting. - Constitutional Vitals: Temp Pulse Resp BP Pulse Ox 98.6 F 83 22 139/78 96 07/10/17 09:25 04/19/17 07:57 04/19/17 09:25 04/19/17 10:25 04/19/17 08:28 General appearance: Present: cooperative, A&O X 3, obese - Head Head exam: Present: atraumatic, normocephalic - Eye Eye exam: Present: EOMI, PERRL, conjuntiva pink, sclera anicteric - Neck Neck exam general surgery: Present: supple, trachea midline. Absent: lymphadenopathy - Respiratory Respiratory exam: Present: wheezes (occasional). Absent: accessory muscle use, rales, rhonchi - Cardiovascular Cardiovascular exam: Present: RRR, +S1, +S2. Absent: diastolic murmur, gallop, rubs, systolic murmur - GI/Abdominal GI/Abdominal exam: Present: normal bowel sounds, soft, no peritoneal signs. Absent: distended, tenderness - Extremities Exam Extremities exam: Present: pedal edema (BLE pitting edema, improves compared to yesterday.), warm, radial pulses palpable and symetrical. Absent: calf tenderness, cyanotic - Neurological Exam Neurological exam: Present: oriented X3, no focal deficits. Absent: pronater drift, facial droop, speech deficit - Skin Skin exam: Present: dry, intact, warm Internal Medicine: Result - Labs CBC & Chem 7: 04/19/17 03:20 04/19/17 05:23 Labs: Short CBC 04/19/17 Range/Units 03:20 WBC 10.3 (4.3-11.1) K/mcL Hgb 9.3 L (11.5-15.4) g/dL Hct 31.7 L (35.3-44.9) % Plt Count 222 (140-400) K/mcL Neutrophils # 8.6 (1.6-8.9) K/mcL BMP 04/18/17 04/19/17 14:45 05:23 Sodium 120 L* Potassium 5.8 H 6.3 H Chloride 89 L Carbon Dioxide 20 BUN 57 H D Creatinine 4.09 H Glucose 456 H Calcium 9.4 - ABG Interpretation ABG results: PT/INR, D-dimer PT 14.1 Seconds (9.4-12.1) H 04/14/17 21:48 Consult Discharge Plan - Plan Referrals: Tristen Quintana MD [Primary Care Provider] - ([facility]) <FrancisWilmer Gumaro - Last Filed: 04/19/17 18:29> Date of Encounter: 04/19/17 - Assessment and plan (1) Hyperkalemia Current Visit: Yes Status: Acute (2) Acute and chronic respiratory failure Current Visit: Yes Status: Acute Qualifiers: Respiratory failure complication: hypoxia Qualified Code(s): J96.21 - Acute and chronic respiratory failure with hypoxia (3) Pulmonary edema Current Visit: Yes Status: Acute Qualifiers: Chronicity: chronic Qualified Code(s): J81.1 - Chronic pulmonary edema (4) Chest pain Current Visit: Yes Status: Acute Qualifiers: Chest pain type: precordial pain Qualified Code(s): R07.2 - Precordial pain (5) Diabetes Current Visit: Yes Status: Chronic Qualifiers: Diabetes mellitus type: type 2 Diabetes mellitus complication status: with hyperglycemia Diabetes mellitus detention insulin use: with marine oil terminal superintendent use Qualified Code(s): E11.65 - Type 2 diabetes mellitus with hyperglycemia; Z79.4 - detention (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 of insulin (6) COPD (chronic obstructive pulmonary disease) Current Visit: Yes Status: Chronic Qualifiers: COPD type: chronic bronchitis Chronic bronchitis type: simple Qualified Code(s): J41.0 - Simple chronic bronchitis (7) Venous stasis dermatitis of both lower extremities Current Visit: Yes Status: Chronic (8) Morbid obesity with BMI of 40.0-44.9, adult Current Visit: No Status: Chronic - Constitutional Vitals: Temp Pulse Resp BP Pulse Ox 98.0 F 89 16 126/62 95 04/19/17 15:07 04/19/17 15:07 04/19/17 16:42 04/19/17 15:07 04/19/17 16:42 Internal Medicine: Result - Labs CBC & Chem 7: 04/19/17 03:20 04/19/17 05:23 - ABG Interpretation ABG results: PT/INR, D-dimer PT 14.1 Seconds (9.4-12.1) H 04/14/17 21:48 - Attending Attestation I examined this patient and my medical decision-making was reviewed with the Resident Physician on 04/19/17. I agree with the documented findings, disposition and treatment plan as described except to the extent set forth below. Ms. Riley is currently admitted for acute hypoxic resp failure. She is now hyperkalemic and hyperglycemia. She is high risk due to potential worsening respiratory status. Ms. Riley feels ok. Her breathing is somewhat better with steroids but her sugar has markedly increased. Her potassium was still high this AM. Her insulin has been adjusted today but she is still quite high. No fever or chills. No GI symptoms. Exam Alert. Comfortable Heart reg Lungs with some scattered rhonchi Abd soft I/P 1. Hypoxia 2. Chest pain 3. Hyperkalemia 4. Hyperglycemia Further diagnoses and plan as above.
[2017-04-19] MEDS ORDERED: 0.9 % Sodium Chloride 1,000 ML ONE (11:32)
--- NOTE | 2017-04-19 12:13 | Electrocardiograph Report ---
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
[2017-04-19] MEDS: Insulin DETEMIR 100 UNIT/ML X5UNITS SQ SCH ×2 (13:44→21:40)
[2017-04-19] MEDS: Isosorbide MONOnitrate (24 HR) 30 MG TAB.ER.24H PO SCH (13:44)
[2017-04-19] MEDS: amLODIPine 5 MG TABLET PO SCH (13:44)
[2017-04-19] MEDS ORDERED: Insulin LISPRO 300 UNITS/3 ML VIAL SQ ONE (15:20)
--- NOTE | 2017-04-19 17:38 | Nephrology Progress Note ---
Date of Encounter: 04/19/17 Time of Encounter: 12:00 Subjective Principal diagnosis: Atypical chest pain, afib, anemia Interval history: Pt seen and examined on HD Objective - Lab 04/19/17 03:20 04/19/17 05:23 Most recent lab results Calcium 9.4 mg/dL (8.6-10.8) 04/19/17 05:23 Phosphorus 4.7 mg/dL (2.3-4.7) 04/15/17 04:36 Magnesium 1.7 mg/dL (1.6-2.6) 04/15/17 04:36 Consult Discharge Plan - Plan Referrals: Tristen Quintana MD [Primary Care Provider] - ([facility])
[2017-04-20] MEDS: *HR* Heparin 5,000 UNIT/ML VIAL SQ SCH ×3 (00:21→16:01)
[2017-04-20] MEDS: *HR* OxyCODONE ER (12 HR) 20 MG TABLET PO SCH ×2 (05:51→17:13)
[2017-04-20 07:05] LABS: Hematocrit 30.8 % (35.3-44.9); Mean Corpuscular HGB Conc 29.2 g/dL (31.6-35.5); Mean Corpuscular Hemoglobin 22.3 pg (28.0-33.3); Mean Corpuscular Volume 76.4 fL (83.0-100.0); Mean Platelet Volume 9.8 fL (9.4-12.4); Platelet Count 206 K/mcL (140-400); Red Blood Count 4.03 M/mcL (3.82-4.97); Red Cell Distribution Width 18.5 % (11.5-14.5)
[2017-04-20] MEDS: Albuterol 2.5 MG/3 ML NEBULIZER IH SCH ×4 (08:18→20:52)
[2017-04-20] MEDS: Tiotropium 18 MCG inhalation IH SCH (08:19)
[2017-04-20] MEDS: Insulin DETEMIR 100 UNIT/ML X5UNITS SQ SCH ×2 (08:39→20:24)
[2017-04-20] MEDS: Sennosides/Docusate Sodium TABLET PO SCH (08:39)
[2017-04-20] MEDS: Insulin LISPRO 300 UNITS/3 ML VIAL SQ SCH ×5 (08:39→20:24)
[2017-04-20] MEDS: Calcium Acetate 667 MG CAPSULE PO SCH ×3 (08:40→17:13)
[2017-04-20] MEDS: Isosorbide MONOnitrate (24 HR) 30 MG TAB.ER.24H PO SCH (08:40)
[2017-04-20] MEDS: predniSONE 20 MG TABLET PO SCH (08:40)
[2017-04-20] MEDS: Gabapentin 100 MG CAPSULE PO SCH ×3 (08:40→20:24)
[2017-04-20] MEDS: amLODIPine 5 MG TABLET PO SCH (08:40)
[2017-04-20 10:54] LABS: Calcium 9.6 mg/dL (8.6-10.8)
[2017-04-20 10:58] LABS: Potassium 5.3 mEq/L (3.5-4.5)
--- NOTE | 2017-04-20 11:34 | Nephrology Progress Note ---
Date of Encounter: 04/20/17 Time of Encounter: 11:32 - Assessment and Plan (1) ESRD on hemodialysis Current Visit: Yes Status: Chronic Plan for HD tomorrow Needs renal diet-ordered Strict I/Os Avoid nephrotoxins if possible (2) Hyperkalemia Current Visit: Yes Status: Acute Improved-down from 6.3 yesterday to 5.3 today Needs renal diet--ordered (3) Dyspnea Current Visit: No Status: Acute per primary team Will pull off as much fluid with dialysis as tolerated Qualifiers: Dyspnea type: shortness of breath Qualified Code(s): R06.02 - Shortness of breath Subjective Principal diagnosis: Atypical chest pain, afib, anemia Interval history: Patient seen and examined. States she is feeling a little better. Objective - Vital Signs Vital signs: Vital Signs Temp Pulse Resp BP Pulse Ox 04/20/17 08:51 97 04/20/17 07:59 97.5 F L 87 16 122/71 97 04/20/17 03:48 97.5 F L 86 14 113/65 95 04/19/17 23:48 97.4 F L 74 13 104/37 95 04/19/17 21:40 97 04/19/17 20:03 18 95 04/19/17 19:41 98.1 F 88 17 124/73 98 Intake and Output 04/19/17 04/20/17 04/20/17 23:59 07:59 15:59 Intake Total 240 / 240 Balance 240 / 240 Intake: Oral 240 / 240 Other: Meal Dinner Percent of Meal Consumed 10% Stool Size Moderate Stool Consistency soft formed Stool Color Brown # Voids 1 # Bowel Movements 1 Weight 114.2 kg Blood Glucose* 499 290 Patient Weight 04/20/17 23:59 Weight 114.2 kg - General Appearance General appearance: Present: obese, chronically ill EENT: Present: ATNC, mucous membranes moist, hearing intact, vision intact Neck: Present: supple Respiratory: Present: course breath sounds, rhonchi Cardiology: Present: normal S1, normal S2 Dialysis Vascular Access: Arteriovenous Graft Gastrointestinal: Present: no tenderness, no guarding, obese Integumentary: Present: warm and dry Neurologic: Present: alert and oriented x3 Psychiatric: Present: mood/affect appropriate, cooperative - Lab 04/20/17 06:57 04/20/17 09:29 Most recent lab results Calcium 9.6 mg/dL (8.6-10.8) 04/20/17 09:29 Phosphorus 4.7 mg/dL (2.3-4.7) 04/15/17 04:36 Magnesium 1.7 mg/dL (1.6-2.6) 04/15/17 04:36 Consult Discharge Plan - Plan Referrals: Tristen Quintana MD [Primary Care Provider] - (patient is from care home..)
--- NOTE | 2017-04-20 15:35 | Internal Med Progress Note ---
<Deepti Forte - Last Filed: 04/20/17 15:57> Date of Encounter: 04/20/17 Time of Encounter: 10:00 - Assessment and plan (1) Hyperkalemia Current Visit: Yes Status: Acute Assessment and plan: - K at high as 6.3 for past two days. - Likely secondary to hyperglycemia from prednisone in the setting ESRD on HD. - Improves with K 5.3 today - Continue basal insulin and increase sliding scale insulin for better glucose control. - Plan to [facility] back [facility] hemodialysis tomorrow. (2) Dyspnea Current Visit: No Status: Acute Assessment and plan: - Patient reports persistent dyspnea and non-productive cough and no significant improvement after HD.. - CXR on 04/17/17 shows worsened bibasilar opacities, right greater than left. - Likely multifactorial including volume overload and underlying reactive airway disease. - Improves as patient reports breathing better today. - Continue prednisone, scheduled albuterol and supplemental oxygen. - Will switch to prednisone taper on discharge. Qualifiers: Dyspnea type: shortness of breath Qualified Code(s): R06.02 - Shortness of breath (3) Atrial fibrillation Current Visit: Yes Status: Chronic Assessment and plan: - EKG and telemetry on admission showed A-fib. - Currently rate-controlled with Coreg. - CHADS VASc score 5 for HTN, DM, CVA and CAD. Also noted to have history of DVT. - Per patient, she was on Coumadin in the past but was taken off by PCP due "high risk for bleeding". - Given downtrending Hgb, cardiology recommends continuing aspirin and Plavix at this time and may consider full anticoagulation in the future. - Will have outpatient cardiology follow-up with Dr. Cardenas. Qualifiers: Atrial fibrillation type: paroxysmal Qualified Code(s): I48.0 - Paroxysmal atrial fibrillation (4) Chest pain Current Visit: Yes Status: Acute Assessment and plan: - With negative troponin and no significant ischemic change on EKG. - Per cardiology, it's more likely musculoskeletal associated with chronic cough and no further cardiology work-up recommended at this time. Qualifiers: Chest pain type: chest pain on breathing Qualified Code(s): R07.1 - Chest pain on breathing (5) Anemia Current Visit: No Status: Chronic Assessment and plan: - Hgb stable around 9.0 today. - Likely secondary to ESRD but patient did have history of GI bleed. - Continue to monitor H&H. Qualifiers: Anemia type: other cause Other causes of anemia: chronic disease, other Qualified Code(s): D63.8 - Anemia in other chronic diseases classified elsewhere (6) History of GI bleed Current Visit: Yes Status: Acute Assessment and plan: - Patient's last EGD in 2014 found gastritis. Colonoscopy in 2015 found diverticulosis and non-bleeding polyps. Patient had repeated colonoscopy in 2014 with clips placed for bleeding from prior polypectomy. - Dr. Calero, the endoscopist professional application designer, was consulted on 04/15 and recommended no further scoping at that time. - Continue omeprazole. (7) CAD (coronary artery disease) Current Visit: Yes Status: Chronic Assessment and plan: - History of CABG 1V and previous PCI. - Continue asa, statin, beta vear. Will add Imdur as recommended by cardiology. - 2-3 week outpatient follow-up with [facility] will be arranged. Qualifiers: Coronary Disease-Associated Artery/Lesion type: [place] artery [place] vs. transplanted heart: [place] heart Associated angina: with unstable angina Qualified Code(s): I25.110 - Atherosclerotic heart disease of [place] coronary artery with unstable angina pectoris (8) ESRD on hemodialysis Current Visit: Yes Status: Chronic Assessment and plan: - On HD MWF - Plan to have HD tomorrow. - Appreciate nephrology follow-up. (9) Diabetes Current Visit: No Status: Chronic Assessment and plan: - Continue basal insulin and sliding scale insulin for glucose control. 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 - Continue current antihypertensive regimen. Qualifiers: Hypertension type: essential hypertension Qualified Code(s): I10 - Essential (primary) hypertension (11) Venous stasis dermatitis of both lower extremities Current Visit: Yes Status: Chronic (12) Morbid (severe) obesity due to excess calories Current Visit: Yes Status: Chronic Assessment and plan: - BMI 39.8 - Subjective Interval history: No significant event noted overnight. Patient was seen and examined this morning. Patient reports some non-productive cough and associated pleuritic chest wall pain but otherwise breathing well. Patient denies fever, chills, nausea, vomiting. - Constitutional Vitals: Temp Pulse Resp BP Pulse Ox 97.8 F 94 16 130/77 98 04/20/17 11:56 04/20/17 11:56 04/20/17 11:56 04/20/17 11:56 04/20/17 11:56 General appearance: Present: cooperative, A&O X 3, obese - Head Head exam: Present: atraumatic, normocephalic - Eye Eye exam: Present: EOMI, PERRL, conjuntiva pink, sclera anicteric - Neck Neck exam general surgery: Present: supple, trachea midline. Absent: lymphadenopathy - Respiratory Respiratory exam: Present: CTAB. Absent: accessory muscle use, rales, rhonchi, wheezes - Cardiovascular Cardiovascular exam: Present: RRR, +S1, +S2. Absent: diastolic murmur, gallop, rubs, systolic murmur - GI/Abdominal GI/Abdominal exam: Present: normal bowel sounds, soft, no peritoneal signs. Absent: distended, tenderness - Extremities Exam Extremities exam: Present: pedal edema (Mild non-pitting bilateral lower extremity edema.), warm, radial pulses palpable and symetrical. Absent: calf tenderness, cyanotic - Neurological Exam Neurological exam: Present: CN II-XII intact, oriented X3, no focal deficits. Absent: pronater drift, facial droop, speech deficit - Skin Skin exam: Present: dry, intact Internal Medicine: Result - Labs CBC & Chem 7: 04/20/17 06:57 04/20/17 09:29 Labs: Short CBC 04/20/17 Range/Units 06:57 WBC 12.3 H (4.3-11.1) K/mcL Hgb 9.0 L (11.5-15.4) g/dL Hct 30.8 L (35.3-44.9) % Plt Count 206 (140-400) K/mcL BMP 04/20/17 09:29 Sodium 127 L D Potassium 5.3 H D Chloride 94 L Carbon Dioxide 19 BUN 47 H D Creatinine 3.04 H Glucose 324 H Calcium 9.6 - ABG Interpretation ABG results: PT/INR, D-dimer PT 14.1 Seconds (9.4-12.1) H 04/14/17 21:48 Consult Discharge Plan - Plan Referrals: Tristen Quintana MD [Primary Care Provider] - ([facility] is [facility]) <Papito Stoll T - Last Filed: 04/20/17 16:44> Date of Encounter: 04/20/17 - Constitutional Vitals: Temp Pulse Resp BP Pulse Ox 97.5 F L 73 16 115/69 97 04/20/17 16:21 04/20/17 16:21 04/20/17 16:21 04/20/17 16:21 04/20/17 16:21 Internal Medicine: Result - Labs CBC & Chem 7: 04/20/17 06:57 04/20/17 09:29 Labs: Short CBC 04/20/17 Range/Units 06:57 WBC 12.3 H (4.3-11.1) K/mcL Hgb 9.0 L (11.5-15.4) g/dL Hct 30.8 L (35.3-44.9) % Plt Count 206 (140-400) K/mcL BMP 04/20/17 09:29 Sodium 127 L D Potassium 5.3 H D Chloride 94 L Carbon Dioxide 19 BUN 47 H D Creatinine 3.04 H Glucose 324 H Calcium 9.6 - ABG Interpretation ABG results: PT/INR, D-dimer PT 14.1 Seconds (9.4-12.1) H 04/14/17 21:48 - Attending Attestation I examined this patient and my medical decision-making was reviewed with the Resident Physician on 04/20/17. I agree with the documented findings, disposition and treatment plan as described except to the extent set forth below. 62 F, admitted and being managed for dyspnea secondary to reactive airway disease and fluid overload. Now much more improved She has multiple medical co-morbidities Physical exam: VSS, not in distress, chest is clear, abdomen is obese, LE with chronic venous stasis changes, trace edema Labs and Imaging reviewed Agree with katrin, anticipate discharge tomorrow after HD Rest of care as documented in resident's documentation
--- NOTE | 2017-04-20 16:07 | Electrocardiograph Report ---
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
[2017-04-20] MEDS: *HR* OxyCODONE/APAP 10/325 TABLET PO PRN (22:31)
[2017-04-21] MEDS: *HR* Heparin 5,000 UNIT/ML VIAL SQ SCH ×3 (00:14→17:21)
[2017-04-21] MEDS: *HR* OxyCODONE ER (12 HR) 20 MG TABLET PO SCH ×2 (06:06→17:20)
[2017-04-21] MEDS: Albuterol 2.5 MG/3 ML NEBULIZER IH SCH ×3 (08:24→15:25)
[2017-04-21] MEDS: Isosorbide MONOnitrate (24 HR) 30 MG TAB.ER.24H PO SCH (09:00)
[2017-04-21] MEDS: Gabapentin 100 MG CAPSULE PO SCH ×2 (09:01→17:20)
[2017-04-21] MEDS: amLODIPine 5 MG TABLET PO SCH (09:01)
[2017-04-21] MEDS: Calcium Acetate 667 MG CAPSULE PO SCH ×3 (09:01→17:21)
[2017-04-21] MEDS: Sennosides/Docusate Sodium TABLET PO SCH (09:01)
[2017-04-21] MEDS: predniSONE 20 MG TABLET PO SCH (09:01)
[2017-04-21] MEDS: *HR* OxyCODONE/APAP 10/325 TABLET PO PRN (09:02)
[2017-04-21] MEDS: Insulin LISPRO 300 UNITS/3 ML VIAL SQ SCH ×6 (09:06→17:18)
[2017-04-21] MEDS: Insulin DETEMIR 100 UNIT/ML X5UNITS SQ SCH (09:11)
[2017-04-21 09:12] LABS: Hematocrit 34.1 % (35.3-44.9); Hemoglobin 10.1 g/dL (11.5-15.4); Immature Platelets 1.9 % (1.1-6.1); Mean Corpuscular HGB Conc 29.6 g/dL (31.6-35.5); Mean Corpuscular Hemoglobin 22.7 pg (28.0-33.3); Mean Corpuscular Volume 76.8 fL (83.0-100.0); Mean Platelet Volume 9.4 fL (9.4-12.4); Red Blood Count 4.44 M/mcL (3.82-4.97); Red Cell Distribution Width 18.6 % (11.5-14.5)
[2017-04-21 09:30] LABS: Calcium 9.9 mg/dL (8.6-10.8); Potassium 4.6 mEq/L (3.5-4.5)
[2017-04-21] MEDS ORDERED: 0.9 % Sodium Chloride 250 ML IVC PRN (10:04)
[2017-04-21] MEDS ORDERED: 0.9 % Sodium Chloride 1,000 ML PRIME SCH (10:15)
[2017-04-21] MEDS ORDERED: 0.9 % Sodium Chloride 2,000 ML ONE (10:47)
[2017-04-21] MEDS: Tiotropium 18 MCG inhalation IH SCH (10:48)
--- NOTE | 2017-04-21 11:23 | Discharge Summary ---
<Papito Stoll T - Last Filed: 04/21/17 16:06> Date of Encounter: 04/21/17 - Discharge Medications Prescriptions: Isosorbide MONOnitrate (24 HR) [Imdur] 30 mg PO DAILY #30 tab.er.24h predniSONE [PredniSONE] See Taper PO DAILY #9 tablet Sodium Polystyrene Sulfonate [Kayexalate] 15 gm PO QTUTHSA #1 bottle Home Medications: Clopidogrel [Plavix] 75 mg PO DAILY 05/11/15 [History] Omeprazole [PriLOSEC] 20 mg PO BID 05/11/15 [History] Rosuvastatin [Crestor] 40 mg PO HS 05/11/15 [History] Sevelamer [Renvela] 800 mg PO TIDWM 05/11/15 [History] Colestipol HCl [Colestid] 1 gm PO BID 06/12/15 [History] Carvedilol 12.5 mg PO BID 10/28/15 [History] amLODIPine [Norvasc] 5 mg PO DAILY 06/09/16 [History] Gabapentin [Neurontin] 200 mg PO TID 30 Days 06/18/16 [Rx] Calcium Acetate [Phos-LO] 667 mg PO TIDWM 09/06/16 [History] Furosemide [Lasix] 80 mg PO BID 09/06/16 [History] metOLazone [Zaroxolyn] 2.5 mg PO MOWEFR 09/06/16 [History] Albuterol Sulfate [Ventolin Hfa] 2 puff IH Q4H PRN 12/29/16 [History] Tiotropium [Spiriva] 1 puff IH DAILY 01/12/17 [History] GuaiFENesin/Dextromethorphan [Robitussin/Dm] 10 ml PO Q6HR udc 01/22/17 [Rx] Insulin LISPRO [HumaLOG] 0 - 16 units SQ TIDAC 02/05/17 [History] Insulin Glargine,Hum.rec.anlog [Lantus Solostar] 43 unit SQ BID #0 02/10/17 [Rx ] Sennosides/Docusate Sodium [Senna Plus] 1 tab PO DAILY 03/26/17 [History] Darbepoetin [Aranesp] 40 mcg SQ QWEEK #4 syringe 03/30/17 [Rx] OxyCODONE ER (12 HR) [OxyCONTIN] 20 mg PO Q12HR #14 tab.er.12h 03/30/17 [Rx] Metoclopramide [Reglan] 10 mg PO Q6HR 2 Days 04/12/17 [Rx] Ondansetron ODT [Zofran ODT] 4 mg SL Q6HR #10 tab.rapdis 04/12/17 [Rx] Folic Acid/Vit Bcomp,C [Renal Vitamin Tablet] 0.8 mg PO DAILY 04/15/17 [History] Oxycodone HCl [Oxycontin] 60 mg PO BID 04/15/17 [History] Oxycodone HCl/Acetaminophen [Percocet 10-325 mg Tablet] 1 tab PO Q6H PRN [History] Isosorbide MONOnitrate (24 HR) [Imdur] 30 mg PO DAILY #30 tab.er.24h 04/21/17 [ Rx] Sodium Polystyrene Sulfonate [Kayexalate] 15 gm PO QTUTHSA #1 bottle 04/21/17 [ Rx] predniSONE [PredniSONE] See Taper PO DAILY #9 tablet 04/21/17 [Rx] Allergies/Adverse Reactions: Allergies No Known Allergies Allergy (Verified 01/12/17 11:29) Procedures/tests Complete & Pending: Procedures Performed prior 72 hours Category Date Time Status ECG 12 lead ECG [ECG] Routine Y 04/19/17 01:07 Completed Date of admission: 04/19/17 17:15 Primary care physician: Tristen Quintana MD Consults: 04/21/17 10:15 Consult to Dialysis [CONS] ONCE - Patient Status Disposition: Transfer SNF Condition: Good - Discharge Instructions Instructions: Diabetes Mellitus Type 2 in Adults (DC), Chronic Obstructive Pulmonary Disease (DC) Follow Up With: Tristen Quintana MD [Primary Care Provider] - ([facility]) Edmundo Cardenas MD [Partnered Physician] - (within 2-3 weeks. For A-fib) Additional Instructions: Please take prednisone taper: 20 mg daily x 3 aldridge and 10 mg daily x 3 days. Please continue Imdur 30 mg by mouth twice a day. Please follow up with your primary care provider within a week. Hospital course: Ms. Riley is a 62 year old female - Time Spent with Patient Total time spent providing and/or coordinating discharge services: - Constitutional Vitals: Temp Pulse Resp BP Pulse Ox 97.7 F 90 20 188/83 100 04/21/17 14:10 04/21/17 07:59 04/21/17 14:10 04/21/17 14:10 04/21/17 07:59 - Attending Attestation I examined this patient and my medical decision-making was reviewed with the Resident Physician on 04/21/17. I agree with the documented findings, disposition and treatment plan as described except to the extent set forth below. 62 F, admitted and being managed for dyspnea secondary to reactive airway disease and fluid overload. Now much more improved She has multiple medical co-morbidities Physical exam: VSS, not in distress, chest is clear, abdomen is obese, LE with chronic venous stasis changes, trace edema Labs and Imaging reviewed Stable for discharge after hemodialysis, Agree with discharging on kayexalate on non-dialysis days, dietary compliance emphasized. Continue other meds, rest of details as in residents documentation <Deepti Forte - Last Filed: 04/21/17 17:38> Date of Encounter: 04/21/17 Time of Encounter: 10:00 - Discharge Diagnosis (1) Atrial fibrillation Priority: Primary Status: Chronic Qualifiers: Atrial fibrillation type: paroxysmal Qualified Code(s): I48.0 - Paroxysmal atrial fibrillation (2) Hyperkalemia Priority: Secondary Status: Acute (3) Dyspnea Priority: Primary Status: Acute Qualifiers: Dyspnea type: shortness of breath Qualified Code(s): R06.02 - Shortness of breath (4) Chest pain Priority: Primary Status: Acute Qualifiers: Chest pain type: chest pain on breathing Qualified Code(s): R07.1 - Chest pain on breathing (5) Anemia Priority: Secondary Status: Chronic Qualifiers: Anemia type: other cause Other causes of anemia: chronic disease, other Qualified Code(s): D63.8 - Anemia in other chronic diseases classified elsewhere (6) History of GI bleed Priority: Secondary Status: Acute (7) CAD (coronary artery disease) Priority: Secondary Status: Chronic Qualifiers: Coronary Disease-Associated Artery/Lesion type: [place] artery [place] vs. 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 Chronic kidney disease stage: on chronic dialysis Qualified Code(s): E11.22 - Type 2 diabetes mellitus with diabetic chronic kidney disease; N18.6 - End stage renal disease; 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; Z99.2 - Dependence on renal dialysis (10) HTN (hypertension) Priority: Secondary Status: Chronic Qualifiers: Hypertension type: essential hypertension Qualified Code(s): I10 - Essential (primary) hypertension (11) Venous stasis dermatitis of both lower extremities Priority: Secondary Status: Chronic (12) Morbid (severe) obesity due to excess calories Priority: Secondary Status: Chronic Procedures/tests Complete & Pending: Procedures Performed prior 72 hours Category Date Time Status ECG 12 lead ECG [ECG] Routine Y 04/19/17 01:07 Completed Date of admission: 04/19/17 17:15 Primary care physician: Tristen Quintana MD Consults: 04/21/17 10:15 Consult to Dialysis [CONS] ONCE Discharging clinician: Deepti Forte Anticipated date of discharge: 04/21/17 - Patient Status Overall status at discharge: patient is progressing back to baseline - Diet and Activity Activity: increase activity as tolerated Diet: diabetic diet, low fat, low cholesterol, low salt diet Hospital course: Ms. Riley is a 62 year old female with CAD s/p CABG & PCI, uncontrolled DM2 and ESRD on HD MWF. Patient was sent to ED after she developed sudden onset of chest pain at dialysis unit. Patient was admitted on 04/15/17 for further evaluation and management. Cardiology thinks the pleuritic chest pain is most likely musculoskeletal and no further cardiology work-up recommended except adding Imdur. Patient was also noted to have A-fib with CHADS VASc= 5. Given her anemia and history of GI bleed, cardiology recommends aspirin and Plavix at this time but considers resumming full anticoagulation in the future. Patient's dyspnea and cough persisted despite of getting multiple hemodialysis. It's likely multifactorial including volume overload and possible COPD exacerbation. Predinsone 40 mg daily and scheduled albuterol were started and patient's respiratory status improved. Patient was noted to develop significant steroid- induced hyperglycemia and associate hyperkalemia (6.3). Patient's hyperglycemia got better controlled after patient's prednisone dose was decreased to 20 mg daily and insulin regimen was increased. The hyperkalemia also improves (K 4.6 on 04/21/17) with kayexalate and hemodialysis. Given patient improves clinically and remains hemodynamically stable, patient will be [facility] with prednisone taper (20 mg daily x 3 aldridge and 10 mg daily x 3 days). Patient will continue prescribed Imdur 30 mg by mouth twice a day. Patient will follow up with [facility] PCP at [facility]. Patient will also follow up with Dr. Cardenas of [facility] within 2-3 weeks. Patient will be discharged after hemodialysis today. - Time Spent with Patient Total time spent providing and/or coordinating discharge services: Greater than 30 minutes - Constitutional Vitals: Temp Pulse Resp BP Pulse Ox 97.7 F 90 14 149/82 100 04/21/17 07:59 04/21/17 07:59 04/21/17 07:59 04/21/17 07:59 04/21/17 07:59 General appearance: Present: cooperative, A&O X 3, obese - Head Head exam: Present: atraumatic, normocephalic - Eye Eye exam: Present: EOMI, PERRL, conjuntiva pink, sclera anicteric - Neck Neck exam general surgery: Present: supple, trachea midline. Absent: lymphadenopathy - Respiratory Respiratory exam: Present: CTAB. Absent: accessory muscle use, rales, rhonchi, wheezes - Cardiovascular Cardiovascular exam: Present: RRR, +S1, +S2. Absent: diastolic murmur, gallop, rubs, systolic murmur - GI/Abdominal GI/Abdominal exam: Present: normal bowel sounds, soft, no peritoneal signs. Absent: distended, tenderness - Extremities Exam Extremities exam: Present: pedal edema (Mild BLE non-pitting edema), warm, radial pulses palpable and symetrical. Absent: calf tenderness, cyanotic - Neurological Exam Neurological exam: Present: CN II-XII intact, oriented X3, no focal deficits. Absent: pronater drift, facial droop, speech deficit - Skin Skin exam: Present: dry, intact, warm
[2017-04-21] MEDS ORDERED: *HR* OxyCODONE/APAP 5/325 TABLET PO PRN (12:27)
[2017-04-21 15:33] VITALS: BP 188/83
--- NOTE | 2017-04-21 16:55 | Physician Discharge Referral ---
[facility] Referral Info Transfer To: [facility] Provider in Charge after Transfer: PCP Institutional Level of Care: Skilled - Diagnosis (1) Atrial fibrillation Priority: Primary Status: Chronic (2) Hyperkalemia Priority: Secondary Status: Acute (3) Dyspnea Priority: Primary Status: Acute (4) Chest pain Priority: Primary Status: Acute (5) Anemia Priority: Secondary Status: Chronic (6) History of GI bleed Priority: Secondary Status: Acute (7) CAD (coronary artery disease) Priority: Secondary Status: Chronic (8) ESRD on hemodialysis Priority: Secondary Status: Chronic (9) Diabetes Priority: Secondary Status: Chronic (10) HTN (hypertension) Priority: Secondary Status: Chronic (11) Venous stasis dermatitis of both lower extremities Priority: Secondary Status: Chronic (12) Morbid (severe) obesity due to excess calories Priority: Secondary Status: Chronic - Transfer Medications Prescriptions: Isosorbide MONOnitrate (24 HR) [Imdur] 30 mg PO DAILY #30 tab.er.24h predniSONE [PredniSONE] See Taper PO DAILY #9 tablet Sodium Polystyrene Sulfonate [Kayexalate] 15 gm PO QTUTHSA #1 bottle Home Medications: Clopidogrel [Plavix] 75 mg PO DAILY 05/11/15 [History] Omeprazole [PriLOSEC] 20 mg PO BID 05/11/15 [History] Rosuvastatin [Crestor] 40 mg PO HS 05/11/15 [History] Sevelamer [Renvela] 800 mg PO TIDWM 05/11/15 [History] Colestipol HCl [Colestid] 1 gm PO BID 06/12/15 [History] Carvedilol 12.5 mg PO BID 10/28/15 [History] amLODIPine [Norvasc] 5 mg PO DAILY 06/09/16 [History] Gabapentin [Neurontin] 200 mg PO TID 30 Days 06/18/16 [Rx] Calcium Acetate [Phos-LO] 667 mg PO TIDWM 09/06/16 [History] Furosemide [Lasix] 80 mg PO BID 09/06/16 [History] metOLazone [Zaroxolyn] 2.5 mg PO MOWEFR 09/06/16 [History] Albuterol Sulfate [Ventolin Hfa] 2 puff IH Q4H PRN 12/29/16 [History] Tiotropium [Spiriva] 1 puff IH DAILY 01/12/17 [History] GuaiFENesin/Dextromethorphan [Robitussin/Dm] 10 ml PO Q6HR udc 01/22/17 [Rx] Insulin LISPRO [HumaLOG] 0 - 16 units SQ TIDAC 02/05/17 [History] Insulin Glargine,Hum.rec.anlog [Lantus Solostar] 43 unit SQ BID #0 02/10/17 [Rx ] Sennosides/Docusate Sodium [Senna Plus] 1 tab PO DAILY 03/26/17 [History] Darbepoetin [Aranesp] 40 mcg SQ QWEEK #4 syringe 03/30/17 [Rx] OxyCODONE ER (12 HR) [OxyCONTIN] 20 mg PO Q12HR #14 tab.er.12h 03/30/17 [Rx] Metoclopramide [Reglan] 10 mg PO Q6HR 2 Days 04/12/17 [Rx] Ondansetron ODT [Zofran ODT] 4 mg SL Q6HR #10 tab.rapdis 04/12/17 [Rx] Folic Acid/Vit Bcomp,C [Renal Vitamin Tablet] 0.8 mg PO DAILY 04/15/17 [History] Oxycodone HCl [Oxycontin] 60 mg PO BID 04/15/17 [History] Oxycodone HCl/Acetaminophen [Percocet 10-325 mg Tablet] 1 tab PO Q6H PRN [History] Isosorbide MONOnitrate (24 HR) [Imdur] 30 mg PO DAILY #30 tab.er.24h 04/21/17 [ Rx] Sodium Polystyrene Sulfonate [Kayexalate] 15 gm PO QTUTHSA #1 bottle 04/21/17 [ Rx] predniSONE [PredniSONE] See Taper PO DAILY #9 tablet 04/21/17 [Rx] Allergies/Adverse Reactions: Allergies No Known Allergies Allergy (Verified 01/12/17 11:29) - Respiratory Orders Smoking Cessation: Smoking cessation has been advised. For more information, call the [place] Tobacco Quit Line at 1-686-GSMI-NOW. - Advance Directives Code Status: DNR-Arrest/Don't Intubate - Mobility Orders Ambulate - Rehabiliation Orders Rehab Potential: Fair - Diet Orders No Concentrated Sweets, Cardiac CERTIFICATION: I certify that the transfer of the above named patient to an Extended Care Facility is necessary for the continuing treatment of the diagnosis listed. The above information is true and accurate reflection of patient's current condition. Confidential - Redisclosure prohibited without a patient's written consent.
--- NOTE | 2017-04-21 18:15 | Nephrology Progress Note ---
Date of Encounter: 04/21/17 Time of Encounter: 12:15 Subjective Principal diagnosis: Atypical chest pain, afib, anemia Interval history: Pt seen and examined on HD with no new complaints. Feels better overall and eager to go back to ECF today Objective - Vital Signs Vital signs: Vital Signs Temp Pulse Resp BP Pulse Ox 04/21/17 14:10 97.7 F 20 188/83 04/21/17 13:50 179/72 04/21/17 13:35 130/79 04/21/17 13:20 166/80 04/21/17 13:05 165/82 04/21/17 12:50 157/67 04/21/17 12:35 156/66 04/21/17 12:20 144/62 04/21/17 12:05 145/61 04/21/17 11:50 142/59 04/21/17 11:35 147/66 04/21/17 11:20 140/69 04/21/17 11:05 156/70 04/21/17 10:50 97.8 F 20 134/67 04/21/17 07:59 97.7 F 90 14 149/82 100 04/21/17 04:41 97.6 F 71 12 159/77 96 04/21/17 00:15 97.6 F 82 15 131/71 99 04/20/17 21:00 15 96 04/20/17 19:41 97.6 F 76 15 122/62 100 Intake and Output 04/21/17 04/21/17 04/21/17 07:59 15:59 23:59 Intake Total 820 / 820 Output Total 3345 / 3345 Balance -2525 / -2525 Intake: Oral 220 / 220 Intake, Rinseback and 600 / 600 Flushes Output: Urine 0 / 0 Total Dialysis (HD) 3345 / 3345 Output Other: Meal Breakfast Percent of Meal Consumed 95% Weight 114.4 kg Blood Glucose* 197 145 207 Hemodialysis Net Fluid 3985 Removed (mL) Patient Weight 04/21/17 23:59 Weight 114.4 kg - Lab 04/21/17 08:54 04/21/17 08:54 Most recent lab results Calcium 9.9 mg/dL (8.6-10.8) 04/21/17 08:54 Phosphorus 4.7 mg/dL (2.3-4.7) 04/15/17 04:36 Magnesium 1.7 mg/dL (1.6-2.6) 04/15/17 04:36 Consult Discharge Plan - Plan Instructions: Diabetes Mellitus Type 2 in Adults (DC), Chronic Obstructive Pulmonary Disease (DC) Additional Instructions: Please take prednisone taper: 20 mg daily x 3 aldridge and 10 mg daily x 3 days. Please continue Imdur 30 mg by mouth twice a day. Please follow up with your primary care provider within a week. Referrals: Edmundo Cardenas MD [Partnered Physician] - (within 2-3 weeks. For A-fib) Tristen Quintana MD [Primary Care Provider] - ([facility]) Prescriptions: Isosorbide MONOnitrate (24 HR) [Imdur] 30 mg PO DAILY #30 tab.er.24h predniSONE [PredniSONE] See Taper PO DAILY #9 tablet Sodium Polystyrene Sulfonate [Kayexalate] 15 gm PO QTUTHSA #1 bottle
[2017-04-21] MEDS ORDERED: Insulin DETEMIR 100 UNIT/ML X5UNITS SQ SCH (21:00)
== END 2017-04-21 17:27 | DRG 308 ==
LOC: 2ANU 21:13 → EMEROO 21:13 → 2ANU 04-15 00:57 → SUATTDRO 04-19 17:15
PROVIDERS: ADMIT Internal Medicine Endocrinology, Diabetes & Metabolism; ATTEND Internal Medicine

== ENCOUNTER 2017-05-13 17:42 | Inpatient (IN) ==
--- NOTE | 2017-05-13 17:54 | Emergency Department Note ---
Disposition Clinical Impression: Renal failure Qualifiers: Renal failure chronicity: chronic Chronic kidney disease stage: on chronic dialysis Qualified Code(s): N18.6 - End stage renal disease; Z99.2 - Dependence on renal dialysis Congestive heart failure Qualifiers: Congestive heart failure type: unspecified congestive heart failure type Congestive heart failure chronicity: acute Qualified Code(s): I50.9 - Heart failure, unspecified Disposition: Admitted As Inpatient Condition: Fair Referrals: NONE,PCP [Non-Partnered Physician] - Forms: ED Satisfaction Letter Time of Disposition: 19:21 SOB HPI - General Chief Complaint: ED Shortness of Breath/Dyspnea Stated Complaint: SOB Time Seen by Provider: 05/13/17 17:48 Source: patient Mode of arrival: ambulatory Limitations: no limitations Nursing Notes Reviewed: Yes Vital Signs Reviewed: Yes - History of Present Illness 62-year-old female who comes in complaining of increasing shortness of breath. Patient has a dialysis fistula in her left arm. States he ate chicken noodle soup prior to arrival. 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 Consistency/Duration: constant Improves with: nothing Worsens with: nothing Known history of: congestive heart failure Associated symptoms: Reports: denies other symptoms Treatment prior to arrival: none Cough present: No Cough Frequency: Intermittent - Related Data Home Medications Medication Instructions Recorded Confirmed Clopidogrel [Plavix] 75 mg PO DAILY 05/11/15 04/15/17 Omeprazole [PriLOSEC] 20 mg PO BID 05/11/15 04/15/17 Rosuvastatin [Crestor] 40 mg PO HS 05/11/15 04/15/17 Sevelamer [Renvela] 800 mg PO TIDWM 05/11/15 04/15/17 Colestipol HCl [Colestid] 1 gm PO BID 06/12/15 04/15/17 Carvedilol 12.5 mg PO BID 10/28/15 04/15/17 amLODIPine [Norvasc] 5 mg PO DAILY 06/09/16 04/15/17 Calcium Acetate [Phos-LO] 667 mg PO TIDWM 09/06/16 04/15/17 Furosemide [Lasix] 80 mg PO BID 09/06/16 04/15/17 metOLazone [Zaroxolyn] 2.5 mg PO MOWEFR 09/06/16 04/15/17 Albuterol Sulfate [Ventolin Hfa] 2 puff IH Q4H PRN 12/29/16 04/15/17 Tiotropium [Spiriva] 1 puff IH DAILY 01/12/17 04/15/17 Insulin LISPRO [HumaLOG] 0 - 16 units SQ TIDAC 02/05/17 04/15/17 Sennosides/Docusate Sodium [Senna 1 tab PO DAILY 03/26/17 04/15/17 Plus] Folic Acid/Vit Bcomp,C [Renal 0.8 mg PO DAILY 04/15/17 04/15/17 Vitamin Tablet] Oxycodone HCl [Oxycontin] 60 mg PO BID 04/15/17 04/15/17 Oxycodone HCl/Acetaminophen 1 tab PO Q6H PRN 04/15/17 04/15/17 [Percocet 10-325 mg Tablet] Previous Rx's Medication Instructions Recorded Gabapentin [Neurontin] 200 mg PO TID 30 Days 06/18/16 GuaiFENesin/Dextromethorphan 10 ml PO Q6HR udc 01/22/17 [Robitussin/Dm] Insulin Glargine,Hum.rec.anlog 43 unit SQ BID #0 02/10/17 [Lantus Solostar] Darbepoetin [Aranesp] 40 mcg SQ QWEEK #4 syringe 03/30/17 OxyCODONE ER (12 HR) [OxyCONTIN] 20 mg PO Q12HR #14 tab.er.12h 03/30/17 Metoclopramide [Reglan] 10 mg PO Q6HR 2 Days 04/12/17 Ondansetron ODT [Zofran ODT] 4 mg SL Q6HR #10 tab.rapdis 04/12/17 Isosorbide MONOnitrate (24 HR) 30 mg PO DAILY #30 tab.er.24h 04/21/17 [Imdur] Sodium Polystyrene Sulfonate 15 gm PO QTUTHSA #1 bottle 04/21/17 [Kayexalate] predniSONE [PredniSONE] See Taper PO DAILY #9 tablet 04/21/17 Allergies Allergy/AdvReac Type Severity Reaction Status Date / Time No Known Allergies Allergy Verified 01/12/17 11:29 Constitutional: Denies: fever, chills, weakness, weight change Eyes: Denies: eye pain, eye discharge, vision change ENT ED: Denies: ear pain, throat pain, dental pain, hearing loss, epistaxis, congestion, dysphagia Cardiovascular: Denies: chest pain, palpitations, dyspnea on exertion, edema, syncope Respiratory: Reports: dyspnea. Denies: cough, wheezes, hemoptysis, stridor Gastrointestinal: Denies: abdominal pain, nausea, vomiting, diarrhea, constipation, hematemesis, melena, hematochezia Genitourinary: Denies: dysuria, frequency, hematuria, discharge Musculoskeletal: Denies: back pain, neck pain, arthralgia, myalgia Integumentary: Denies: rash, abrasion, lesions Neurological: Denies: headache, weakness, numbness, paresthesias, confusion, abnormal gait, vertigo Psychiatric: Denies: anxiety, depression, suicidal thoughts, homicidal thoughts , auditory hallucinations, visual hallucinations Endocrine: Denies: fatigue Hematological/Lymphatic: Denies: easy bleeding, easy bruising Allergic/Immunologic: Denies: facial swelling, urticaria Past Medical History - Past Medical History Medical history: Reports: arthritis, asthma, atrial fibrillation, CHF, COPD, coronary artery disease, CVA, DVT, diabetes, dialysis, fibromyalgia, GERD, GI bleed, hyperlipidemia, hypertension, kidney stones, migraine, myocardial infarction, osteoporosis, peripheral artery disease, renal disease, other Surgical history: Reports: angioplasty/stent, appendectomy, cholecystectomy, coronary bypass (CABG), hysterectomy, knee replacement, other, IVC filter Psychiatric history: Reports: anxiety, depression, schizophrenia, previous psychiatric hospitalization, other 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 - Social History Smoking Status: Former smoker Smokeless Tobacco Status: No Alcohol use: Reports: none Drug use: Reports: none Physical Exam - General Limitations: no limitations General appearance: alert, in no apparent distress - Head Head exam: atraumatic, normocephalic, normal inspection - Eye Eye exam: Present: normal appearance, PERRL, EOMI - ENT ENT exam: normal exam, normal oropharynx, mucous membranes moist - Neck Neck exam: Present: normal inspection, full ROM, trachea midline - Chest Chest inspection: Present: normal inspection, symmetric chest wall rise - Respiratory Respiratory exam: Present: other (Diminished breath sounds) - Cardiovascular Cardiovascular exam: Present: regular rate, normal rhythm, normal heart sounds - Abdominal Exam Abdominal exam: Present: soft, Non-Tender. Absent: tenderness, distention, guarding, rebound, rigidity - Extremities Exam Extremities exam: Present: pedal edema - Expanded Lower Extremity Exam Neurovascular/Tendon exam: Absent: motor deficit, sensory deficit, tendon deficit Gait: not tested/not observed - Back Exam Back exam: Present: normal inspection, full ROM. Absent: tenderness - Neurological Exam Neurological exam: Present: alert, oriented X3 - Psychiatric Psychiatric exam: Present: normal affect, normal mood - Skin Skin exam: Present: warm, dry, intact, normal color Course - Reevaluation(s) Reevaluation #1: 62-year-old with renal failure and on dialysis who states she came from dialysis and was told that her shunt is not working correctly. Patient did have her full of 3-1/2 hours of dialysis yesterday but she was told that the flow to the shunt is not as good as they had hoped and that it seems that it may be plugging up and she is going to be evaluated by her surgeon. The patient is a very difficult vascular stick. Consultation obtained with nephrology of were going to go ahead and give her Lasix she does make some urine. In admit her for evaluation possibly for a replaced dialysis catheter. Ideally we would not use central lines in the neck and no subclavian due to the fact that they want to put a dialysis catheter in. Time: 19:18 - Consultations Consultation #1: Discussed with Dr. Hernandez, will admit the patient give high-dose oral Lasix and they will dialyze and evaluate her shunt tomorrow. Patient a very difficult vascular stick okay to admit without IV at this point in time to determine need for dialysis and the shunt status. Time: 19:05 Consultation #2: Discussed with Liz Gale nurse practitioner, admit. Time: 19:14 Vital Signs Temperature 98.7 F 05/13/17 17:51 Pulse Rate 71 05/13/17 17:51 Respiratory Rate 24 05/13/17 17:51 Blood Pressure 136/61 05/13/17 17:51 O2 Sat by Pulse Oximetry 97 05/13/17 17:51 Temperature 98.7 F 05/13/17 17:51 Pulse Rate 95 05/13/17 18:38 Respiratory Rate 18 05/13/17 18:38 Blood Pressure 114/74 05/13/17 18:38 O2 Sat by Pulse Oximetry 100 05/13/17 18:38 Oxygen Delivery Oxygen Delivery Nasal Cannula Shortness of Breath/Dyspnea - Lab Data Result diagrams: 05/13/17 18:03 05/13/17 18:03 Lab Results 05/13/17 05/13/17 05/13/17 Range/Units 18:03 18:03 18:03 WBC 8.2 (4.3-11.1) K/mcL RBC 3.73 L (3.82-4.97) M/mcL Hgb 8.5 L (11.5-15.4) g/dL Hct 30.0 L (35.3-44.9) % MCV 80.4 L (83.0-100.0) fL MCH 22.8 L (28.0-33.3) pg MCHC 28.3 L (31.6-35.5) g/dL RDW 20.2 H (11.5-14.5) % Plt Count 218 (140-400) K/mcL MPV 9.6 (9.4-12.4) fL Immature Gran % 0.8 (0-4) % Seg Neutrophils % 67.1 % Lymphocytes % 21.5 % Monocytes % 8.3 % Eosinophils % 1.6 % Basophils % 0.7 % Neutrophils # 5.5 (1.6-8.9) K/mcL Lymphocytes # 1.8 (0.6-4.6) K/mcL Monocytes # 0.7 (0.0-1.3) K/mcL Eosinophils # 0.1 (0.0-0.6) K/mcL Basophils # 0.1 (0.0-0.2) K/mcL Platelet Estimate Normal (Normal) Hypochromasia Present A (Not Present) Anisocytosis 2+ A (Not Present) PT 12.8 H (9.4-12.1) Seconds INR 1.2 APTT 28.9 (26.0-36.0) Seconds Sodium 136 (136-145) mEq/L Potassium 4.6 H (3.5-4.5) mEq/L Chloride 99 (98-109) mEq/L Carbon Dioxide 26 (19-29) mEq/L BUN 28 H (7-20) mg/dL Creatinine 2.57 H (0.57-1.11) mg/dL Est GFR ( Amer) 23 L (> 60) Est GFR (Non-Af Amer) 19 L (> 60) BUN/Creatinine Ratio 11 (6-26) Glucose 105 H (70-99) mg/dL Calculated Osmolality 288 (280-300) Lactic Acid (0.5-2.2) mmol/L Calcium 9.1 (8.6-10.8) mg/dL Troponin I (0-0.03) ng/mL B-Natriuretic Peptide (0-100) pg/mL 05/13/17 05/13/17 05/13/17 Range/Units 18:03 18:03 18:03 WBC (4.3-11.1) K/mcL RBC (3.82-4.97) M/mcL Hgb (11.5-15.4) g/dL Hct (35.3-44.9) % MCV (83.0-100.0) fL MCH (28.0-33.3) pg MCHC (31.6-35.5) g/dL RDW (11.5-14.5) % Plt Count (140-400) K/mcL MPV (9.4-12.4) fL Immature Gran % (0-4) % Seg Neutrophils % % Lymphocytes % % Monocytes % % Eosinophils % % Basophils % % Neutrophils # (1.6-8.9) K/mcL Lymphocytes # (0.6-4.6) K/mcL Monocytes # (0.0-1.3) K/mcL Eosinophils # (0.0-0.6) K/mcL Basophils # (0.0-0.2) K/mcL Platelet Estimate (Normal) Hypochromasia (Not Present) Anisocytosis (Not Present) PT (9.4-12.1) Seconds INR APTT (26.0-36.0) Seconds Sodium (136-145) mEq/L Potassium (3.5-4.5) mEq/L Chloride (98-109) mEq/L Carbon Dioxide (19-29) mEq/L BUN (7-20) mg/dL Creatinine (0.57-1.11) mg/dL Est GFR ( Amer) (> 60) Est GFR (Non-Af Amer) (> 60) BUN/Creatinine Ratio (6-26) Glucose (70-99) mg/dL Calculated Osmolality (280-300) Lactic Acid 1.0 (0.5-2.2) mmol/L Calcium (8.6-10.8) mg/dL Troponin I 0.08 H* (0-0.03) ng/mL B-Natriuretic Peptide 749 H (0-100) pg/mL - EKG Data EKG attestation: Yes I reviewed and interpreted this EKG. Rate: Reports: normal Rhythm: Reports: A.Fib Interpretation: Reports: no acute changes
[2017-05-13 18:12] LABS: Eosinophils % 1.6 %; Hemoglobin 8.5 g/dL (11.5-15.4)
[2017-05-13 18:14] LABS: Basophils # 0.1 K/mcL (0.0-0.2); Basophils % 0.7 %; Eosinophils # 0.1 K/mcL (0.0-0.6); Immature Granulocytes % 0.8 % (0-4); Lymphocytes # 1.8 K/mcL (0.6-4.6); Lymphocytes % 21.5 %; Mean Corpuscular HGB Conc 28.3 g/dL (31.6-35.5); Mean Corpuscular Hemoglobin 22.8 pg (28.0-33.3); Mean Corpuscular Volume 80.4 fL (83.0-100.0); Mean Platelet Volume 9.6 fL (9.4-12.4); Monocytes # 0.7 K/mcL (0.0-1.3); Monocytes % 8.3 %; Neutrophils # 5.5 K/mcL (1.6-8.9); Platelet Count 218 K/mcL (140-400); Red Blood Count 3.73 M/mcL (3.82-4.97); Red Cell Distribution Width 20.2 % (11.5-14.5); Segmented Neutrophils % 67.1 %
[2017-05-13 18:18] LABS: INR 1.2; Prothrombin Time 12.8 Seconds (9.4-12.1)
[2017-05-13 18:21] LABS: Activated Partial Thrombo Time 28.9 Seconds (26.0-36.0)
[2017-05-13 18:27] LABS: Calcium 9.1 mg/dL (8.6-10.8); Potassium 4.6 mEq/L (3.5-4.5)
[2017-05-13 18:37] LABS: Anisocytosis 2+ (Not Present)
[2017-05-13 18:38] LABS: Platelet Estimate Normal (Normal)
[2017-05-13 18:39] LABS: Hypochromasia Present (Not Present)
[2017-05-13] MEDS ORDERED: Furosemide 40 MG TABLET PO STA (19:13)
[2017-05-13 19:17] LABS: Bilirubin,Urine Negative (Negative); Blood,Urine Negative (Negative); Clarity,Urine Cloudy (Clear); Color,Urine Yellow (Yellow); Glucose,Urine (UA) Normal (Normal); Ketones,Urine Negative (Negative); Leukocyte Esterase,Urine Moderate (Negative); Nitrite,Urine Negative (Negative); Protein,Urine 30 mg/dL (Neg-Trace); Specific Gravity,Urine 1.014 (1.010-1.025); Urobilinogen,Urine Normal (Normal)
[2017-05-13 19:19] LABS: Bacteria,Urine Moderate per hpf (None-Few); Hyaline Casts,Urine None Seen per lpf (None-Few); Squamous Epithelial Cell,Urine Many per lpf (None-Few); WBC,Urine 50-100 per hpf (0-3)
[2017-05-13] MEDS ORDERED: *HR* OxyCODONE/APAP 5/325 TABLET PO ONE (19:53)
[2017-05-13] MEDS ORDERED: Dextrose Gel 15 GM PO PRN ×2 (20:47)
[2017-05-13] MEDS ORDERED: *HR* Dextrose 50 % in Water (Syg) 50 ML SYRINGE IVP PRN (20:47)
[2017-05-13] MEDS ORDERED: D5% in Water 1,000 ML IVC PRN (20:47)
--- NOTE | 2017-05-13 21:19 | Internal Med History&Physical ---
<Manuel Flores - Last Filed: 05/13/17 21:47> Date of Encounter: 05/13/17 Time of Encounter: 21:18 Assessment and Plan (1) Congestive heart failure Current visit: Yes Status: Chronic h/o CHF, came to the ED with SOB and requiring oxygen via NC. CXR exhibited pulmonary congestion and bilateral lower lobe infiltrates. Troponin elevated at 0.8. Plan is to diurese with high dose lasix overnight and send to dialysis in the morning. Start 1L fluid restriction, Insert a pereira catheter to monitor I&O, saline lock IV. Will trend troponins, and continue 02 therapy and titrate as needed.-Dr. Hernandez concerned that AV fistula not working properly and he will attempt to place a temp catheter tomorrow to dialyze patient. Qualifiers: Congestive heart failure type: unspecified congestive heart failure type Congestive heart failure chronicity: acute on chronic Qualified Code(s): I50.9 - Heart failure, unspecified (2) CKD (chronic kidney disease) Current visit: Yes Status: Chronic h/o CKD last received HD 05-12-17 and was informed shunt not functioning properly. Surgery has been consulted for possible shunt replacement. Nephrology consulted in ED. Nephro to see patient in the AM and is planning HD. Qualifiers: Chronic kidney disease stage: on chronic dialysis Qualified Code(s): N18.6 - End stage renal disease; Z99.2 - Dependence on renal dialysis (3) Anemia Current visit: Yes Status: Chronic anemia of chronic disease. Will continue ferritin and darbapoetin on her home medlist. Qualifiers: Anemia type: other cause Other causes of anemia: chronic disease, other Qualified Code(s): D63.8 - Anemia in other chronic diseases classified elsewhere (4) Elevated troponin Current visit: Yes Status: Chronic H/O chf, CXR reveals pulmonary congestion likely causing elevated troponins. Continue to trend and monitor patient. Placed on continuous tele. (5) Diabetes mellitus with multiple complications Current visit: Yes Status: Chronic Longstanding h/o diabetic complications and CKD requiring HD. Continue with CKD plans as discussed. Accuchecks AC/HS Start SSI coverage, and basal BMP in the am. (6) DVT prophylaxis Current visit: Yes Status: Acute SC Heparin initiated (7) Hypertension Current visit: Yes Status: Chronic Presently controlled. Will continue home meds Qualifiers: Qualified Code(s): I15.1 - Hypertension secondary to other renal disorders; N28.89 - Other specified disorders of kidney and ureter Internal Medicine - H&P: HPI Chief complaint: SOB Admitted From: Long-term Nursing Facility Plans for Post Hospital Care: [facility] History of present illness: Ms. Riley is a 62 year old female with a PMH of arthritis, asthma, COPD, atrial fibrillation, CHF, HTN, PAD, coronary artery disease, CVA, DVT, CKD diabetes, dialysis, fibromyalgia, GERD, GI bleed, hyperlipidemia, kidney stones myocardial infarction, osteoporosis, who presented to [facility] on 05-13-17 with SOB which started early this morning. She has a h/o acute exacerbations of CHF, and is a CDK patient requiring hemodialysis. Her last HD appointment was to which she was informed of issues with her shunt. She was advised to come to the ED for a surgical evaluation for a shunt replacement. Nephrology consulted while in the ED with order to diurese. Elevated troponins noted and She is being admited for further monitoring and workup. Past Med Surg Social Fam HX - Past Medical History Medical history: arthritis, asthma, atrial fibrillation, CHF, COPD, coronary artery disease, CVA, DVT, diabetes, dialysis, fibromyalgia, GERD, GI bleed, hyperlipidemia, hypertension, kidney stones, migraine, myocardial infarction, osteoporosis, peripheral artery disease, renal disease, other Psychiatric history: anxiety, depression, schizophrenia, previous psychiatric hospitalization, other - Past Surgical History Surgical History: angioplasty/stent, appendectomy, cholecystectomy, coronary bypass (CABG), hysterectomy, knee replacement, other, IVC filter - Social History Smoking Status: Former smoker Smokeless Tobacco Status: No Alcohol use: none Drug use: none - Family History Father Living Status: Hx Family Cardiac Disorders: Yes Hx Family Endocrine Disorder: Yes Mother Living Status: Still Living Hx Family Respiratory Disorders: Yes (end stage copd) Internal Medicine - H&P: Meds Clopidogrel [Plavix] 75 mg PO DAILY 05/11/15 [History] Omeprazole [PriLOSEC] 20 mg PO BID 05/11/15 [History] Rosuvastatin [Crestor] 40 mg PO HS 05/11/15 [History] Sevelamer [Renvela] 800 mg PO TIDWM 08/01/15 [History] Colestipol HCl [Colestid] 1 gm PO BID 06/12/15 [History] Carvedilol 12.5 mg PO BID 10/28/15 [History] amLODIPine [Norvasc] 5 mg PO DAILY 06/09/16 [History] Gabapentin [Neurontin] 200 mg PO TID 30 Days 06/18/16 [Rx] Calcium Acetate [Phos-LO] 667 mg PO TIDWM 09/06/16 [History] Furosemide [Lasix] 80 mg PO BID 09/06/16 [History] metOLazone [Zaroxolyn] 2.5 mg PO MOWEFR 09/06/16 [History] Albuterol Sulfate [Ventolin Hfa] 2 puff IH Q4H PRN 12/29/16 [History] Tiotropium [Spiriva] 18 mcg IH DAILY 01/12/17 [History] GuaiFENesin/Dextromethorphan [Robitussin/Dm] 10 ml PO Q6HR udc 01/22/17 [Rx] Insulin LISPRO [HumaLOG] 0 - 16 units SQ 0800,1100,1600 02/05/17 [History] Sennosides/Docusate Sodium [Senna Plus] 1 tab PO DAILY 03/26/17 [History] OxyCODONE ER (12 HR) [OxyCONTIN] 20 mg PO Q12HR #14 tab.er.12h 03/30/17 [Rx] Metoclopramide [Reglan] 10 mg PO Q6HR 2 Days 04/12/17 [Rx] Ondansetron ODT [Zofran ODT] 4 mg SL Q6HR #10 tab.rapdis 04/12/17 [Rx] Folic Acid/Vit Bcomp,C [Renal Vitamin Tablet] 0.8 mg PO DAILY 04/15/17 [History] Oxycodone HCl/Acetaminophen [Percocet 10-325 mg Tablet] 1 tab PO Q6H PRN [History] Isosorbide MONOnitrate (24 HR) [Imdur] 30 mg PO DAILY #30 tab.er.24h 04/21/17 [ Rx] Darbepoetin [Aranesp] 40 mcg SQ FR 05/13/17 [History] Insulin ASPART [NovoLOG] 15 unit SQ TIDAC 05/13/17 [History] Insulin Glargine,Hum.rec.anlog [Lantus Solostar] 50 unit SQ BID 05/13/17 [ History] Insulin LISPRO [HumaLOG] 0 - 8 unit SQ HS 05/13/17 [History] Allergies No Known Allergies Allergy (Verified 01/12/17 11:29) All Systems PM: A 10-system review of systems was performed and is negative for pertinent findings except as documented above in the HPI. - Constitutional Constitutional: no chills, no fever(s), no night sweats - EENT Eyes: no change in vision, no discharge, no pain, no photophobia Ears: no ear discharge, no ear pain, no tinnitus Nose, mouth and throat: no dysphagia, no nasal discharge, no neck pain, no sore throat - Cardiovascular Cardiovascular ROS IM: no chest pain, no diaphoresis, no dyspnea, no lightheadedness, no palpitations, no syncope - Respiratory Respiratory: dyspnea, no cough, no wheezing, no excessive phlegm production - Gastrointestinal Gastrointestinal: no abdominal pain, no diarrhea, no hematemesis, no hematochezia, no melena, no nausea, no vomiting - Genitourinary Genitourinary: no change in urinary stream, no dysuria, no flank pain, no hematuria - Musculoskeletal Musculoskeletal ROS IM: no numbness, no tingling - Integumentary Integumentary IM: no rash, no unusual bruising - Neurological Neurological ROS: no confusion, no convulsions, no focal weakness, no numbness, no tingling, no tremor(s) - Endocrine Endocrine IM: fatigue - Hematologic/Lymphatic Hematologic/Lymphatic: no easy bruising - Constitutional Vitals: Temp Pulse Resp BP Pulse Ox 98.7 F 95 17 128/66 100 05/13/17 17:51 05/13/17 18:38 05/13/17 21:13 05/13/17 21:13 05/13/17 18:38 General appearance: Present: cooperative, A&O X 3, obese, answers questions appropriately - Head Head exam: Present: atraumatic, normocephalic - Eye Eye exam: Present: PERRL, conjuntiva pink, sclera anicteric Pupils: Present: PERRL - Neck Neck exam general surgery: Present: supple, trachea midline. Absent: lymphadenopathy - Respiratory Respiratory exam: Present: decreased breath sounds, wheezes. Absent: accessory muscle use, rales, rhonchi Additional comments: expiratory wheezing bilaterally A&P. Bilateral diminished posterior bases. - Cardiovascular Cardiovascular exam: Present: RRR, +S1, +S2. Absent: diastolic murmur, gallop, rubs, systolic murmur - GI/Abdominal GI/Abdominal exam: Present: normal bowel sounds, soft, no peritoneal signs. Absent: distended, tenderness - Extremities Exam Extremities exam: Present: warm, radial pulses palpable and symetrical. Absent : calf tenderness, cyanotic, pedal edema - Expanded Lower Extremities Exam Lower Leg exam: Present: swelling (swelling with pitting edema BLE) - Neurological Exam Neurological exam: Present: CN II-XII intact, oriented X3, no focal deficits. Absent: pronater drift, facial droop, speech deficit - Skin Skin exam: Present: dry, intact - Expanded Skin Exam Distribution of rash: Present: RLE, LLE Description of rash: Present: erythematous, swelling Internal Med - H&P Results - Labs CBC & Chem 7: 05/13/17 18:03 05/13/17 18:03 <Dennis Moncada - Last Filed: 05/14/17 02:10> Date of Encounter: 05/13/17 Internal Medicine - H&P: HPI History of present illness: Ms. Riley is a 62 year old female All Systems PM: A 10-system review of systems was performed and is negative for pertinent findings except as documented above in the HPI. - Constitutional Vitals: Temp Pulse Resp BP Pulse Ox 97.9 F 88 16 134/61 96 05/13/17 23:48 05/13/17 23:48 05/13/17 23:48 05/13/17 23:48 05/13/17 23:48 Skin: significant bilateral lower extremity stasis dermatitis with old surgical scars, warms shins bilaterally, LUE AVF with thrill and bruit Internal Med - H&P Results - Labs CBC & Chem 7: 05/14/17 01:35 05/13/17 18:03 Labs: Short CBC 05/14/17 Range/Units 01:35 WBC 10.5 (4.3-11.1) K/mcL Hgb 7.8 L (11.5-15.4) g/dL Hct 26.8 L (35.3-44.9) % Plt Count 207 (140-400) K/mcL Neutrophils # 7.3 (1.6-8.9) K/mcL - Diagnostic Studies Chest x-ray Status: image reviewed by me - Attending Attestation I personally interviewed and examined this patient and my medical decision- making was reviewed with the Advanced Nurse Practitioner. I agree with the documented findings, disposition and treatment plan as described. Patient is a 62 year old female well known to this facility with ESRD on HD MWF , she informs us that she had problems with her LUE AVF on Wednesday so her livestock haulier wanted her admitted today for a temporary vascular access whilst work on her AVF is still ongoing. She incidentally was found to be fluid overloaded upon presentation so she will also be diuresed overnight-she still makes urine-pending nephrology and vascular input in AM. Dennis Moncada MD, MPH Hospitalist
[2017-05-13] MEDS: *HR* OxyCODONE/APAP 10/325 TABLET PO PRN (22:51)
[2017-05-13] MEDS: Insulin LISPRO 300 UNITS/3 ML VIAL SQ SCH (22:51)
[2017-05-13] MEDS: Insulin DETEMIR 100 UNIT/ML X5UNITS SQ SCH (22:51)
[2017-05-14 01:59] LABS: Basophils % 0.4 %; Eosinophils # 0.2 K/mcL (0.0-0.6); Eosinophils % 1.6 %; Hematocrit 26.8 % (35.3-44.9); Hemoglobin 7.8 g/dL (11.5-15.4); Lymphocytes % 18.8 %; Mean Corpuscular HGB Conc 29.1 g/dL (31.6-35.5); Mean Corpuscular Hemoglobin 22.9 pg (28.0-33.3); Mean Corpuscular Volume 78.6 fL (83.0-100.0); Mean Platelet Volume 9.8 fL (9.4-12.4); Monocytes # 0.9 K/mcL (0.0-1.3); Monocytes % 8.8 %; Neutrophils # 7.3 K/mcL (1.6-8.9); Nucleated Red Blood Cells 0.2 /100 WBC (0); Platelet Count 207 K/mcL (140-400); Red Blood Count 3.41 M/mcL (3.82-4.97); Red Cell Distribution Width 20.1 % (11.5-14.5); Segmented Neutrophils % 69.4 %
[2017-05-14] MEDS ORDERED: Furosemide 40 MG/4 ML VIAL IVP ONE (02:00)
[2017-05-14 02:07] LABS: Calcium 8.5 mg/dL (8.6-10.8); Potassium 4.1 mEq/L (3.5-4.5)
[2017-05-14] MEDS: *HR* OxyCODONE ER (12 HR) 20 MG TABLET PO SCH ×2 (05:21→19:50)
[2017-05-14] MEDS: *HR* Heparin 5,000 UNIT/ML VIAL SQ SCH ×2 (05:21→19:50)
[2017-05-14] MEDS: Renal Vitamin 1 MG CAPSULE PO SCH (08:10)
[2017-05-14] MEDS: Sennosides/Docusate Sodium TABLET PO SCH (08:11)
[2017-05-14] MEDS: Calcium Acetate 667 MG CAPSULE PO SCH ×3 (08:11→16:40)
[2017-05-14] MEDS: Insulin LISPRO 300 UNITS/3 ML VIAL SQ SCH ×3 (08:11→16:41)
[2017-05-14] MEDS: amLODIPine 5 MG TABLET PO SCH (08:12)
[2017-05-14] MEDS: Insulin DETEMIR 100 UNIT/ML X5UNITS SQ SCH ×2 (08:12→21:38)
[2017-05-14] MEDS: Tiotropium 18 MCG inhalation IH SCH (08:13)
[2017-05-14] MEDS: Furosemide 40 MG TABLET PO SCH ×2 (08:33→21:37)
[2017-05-14] MEDS: Gabapentin 100 MG CAPSULE PO SCH ×3 (08:34→21:37)
[2017-05-14] MEDS ORDERED: Furosemide 40 MG TABLET PO SCH (09:00)
[2017-05-14] MEDS ORDERED: (Colestipol Hcl [Colestid] 1 GM) PO SCH (09:00)
[2017-05-14] MEDS ORDERED: Gabapentin 100 MG CAPSULE PO SCH (09:00)
--- NOTE | 2017-05-14 09:11 | Internal Med Progress Note ---
<Adam Coffey - Last Filed: 05/14/17 13:25> Date of Encounter: 05/14/17 Time of Encounter: 09:11 - Assessment and plan (1) CHF (congestive heart failure) Current Visit: Yes Status: Chronic Assessment and plan: Continue O2 NC, had high dose lasix last night and she will receive dialysis today. Continue to strictly monitor I+O and wt. Ordered echo 2/2 > 1 yr since last Qualifiers: Congestive heart failure type: diastolic Congestive heart failure chronicity: chronic Qualified Code(s): I50.32 - Chronic diastolic (congestive ) heart failure (2) ESRD on hemodialysis Current Visit: Yes Status: Chronic Assessment and plan: Shunt is worsening. Surgery has been consulted for possible shunt replacement. Patient will receive HD today. (3) Diabetes type 2, uncontrolled Current Visit: Yes Status: Chronic Assessment and plan: Continue accuchecks and administration of basal + bolus SSI. decreased Levemir due to historic lower blood sugars during hospitalization Qualifiers: Diabetes mellitus complication status: with kidney complications Diabetes mellitus complication detail: with chronic kidney disease Diabetes mellitus retirement insulin use: without retirement use Chronic kidney disease stage: on chronic dialysis Qualified Code(s): E11.22 - Type 2 diabetes mellitus with diabetic chronic kidney disease; E11.65 - Type 2 diabetes mellitus with hyperglycemia; N18.6 - End stage renal disease; Z99.2 - Dependence on renal dialysis (4) Anemia of chronic disease Current Visit: Yes Status: Chronic Assessment and plan: continue home ferritin and darbapoetin. Ferrous Sulfate PO added. (5) Elevated troponin Current Visit: Yes Status: Chronic Assessment and plan: Trop 0.08, 0.07, 0.08. CXR showed pulmonar congestion + bilateral infiltrates. continue telemtry (6) Diabetes mellitus with multiple complications Current Visit: Yes Status: Chronic Assessment and plan: continue accuchecks, basal insulin and sliding scale (7) HTN (hypertension) Current Visit: No Status: Chronic Assessment and plan: continue home meds and monitor. Added home Imdur. Qualifiers: Hypertension type: essential hypertension Qualified Code(s): I10 - Essential (primary) hypertension - Subjective Interval history: Lynnette is a 62 yo F on Day 1 of admission. She came by ED with a cc of SOB. She was admitted 2/2 pulmonary congestion and bilateral lower lobe infiltrates. She was given high dose lasix and is scheduled for HD today. She was also started on fluid resuscitation and pereira cath was placed. Today she continues to have complaints of trouble breathing, and feels like her legs are going to explode due to all the fluid. She also expresses concerns of her low blood sugar today but does not report any symptoms. she denies chest pain, fever, chills. - Constitutional Vitals: Temp Pulse Resp BP Pulse Ox 97.9 F 86 18 145/77 100 05/14/17 07:49 05/14/17 07:49 05/14/17 07:49 05/14/17 07:49 05/14/17 08:26 General appearance: Present: cooperative, A&O X 3, obese, answers questions appropriately - Head Head exam: Present: atraumatic, normal inspection, normocephalic - Respiratory Respiratory exam: Present: wheezes (bilateral and diffuse) - Cardiovascular Cardiovascular exam: Present: distant heart sounds - GI/Abdominal GI/Abdominal exam: Present: normal bowel sounds, soft, no peritoneal signs. Absent: distended, tenderness - Expanded Lower Extremities Exam Lower Leg exam: Present: swelling (bilateral pitting edema 4+). Absent: tenderness Internal Medicine: Result - Labs CBC & Chem 7: 05/14/17 01:35 05/14/17 01:35 Labs: Short CBC 05/14/17 Range/Units 01:35 WBC 10.5 (4.3-11.1) K/mcL Hgb 7.8 L (11.5-15.4) g/dL Hct 26.8 L (35.3-44.9) % Plt Count 207 (140-400) K/mcL Neutrophils # 7.3 (1.6-8.9) K/mcL BMP 05/14/17 01:35 Sodium 137 Potassium 4.1 Chloride 101 Carbon Dioxide 27 BUN 29 H Creatinine 2.74 H Glucose 112 H Calcium 8.5 L Cardiac Enzymes 05/14/17 05/14/17 Range/Units 01:35 06:18 Troponin I 0.07 H* 0.08 H* (0-0.03) ng/mL - ABG Interpretation ABG results: PT/INR, D-dimer PT 12.8 Seconds (9.4-12.1) H 05/13/17 18:03 Consult Discharge Plan - Plan Referrals: Tristen Quintana MD [Primary Care Provider] - <Wilmer Blanco Gumaro - Last Filed: 05/14/17 19:15> Date of Encounter: 05/14/17 - Assessment and plan (1) Acute and chronic respiratory failure Current Visit: Yes Status: Acute Qualifiers: Respiratory failure complication: hypoxia Qualified Code(s): J96.21 - Acute and chronic respiratory failure with hypoxia (2) CHF (congestive heart failure) Current Visit: Yes Status: Acute Qualifiers: Congestive heart failure type: diastolic Congestive heart failure chronicity: chronic Qualified Code(s): I50.32 - Chronic diastolic (congestive ) heart failure (3) ESRD on hemodialysis Current Visit: Yes Status: Chronic (4) Anemia Current Visit: Yes Status: Chronic Qualifiers: Anemia type: due to chronic kidney disease Chronic kidney disease stage: on chronic dialysis Qualified Code(s): N18.6 - End stage renal disease; D63.1 - Anemia in chronic kidney disease; Z99.2 - Dependence on renal dialysis (5) Diabetes mellitus with multiple complications Current Visit: Yes Status: Chronic (6) Hypertension Current Visit: Yes Status: Chronic Qualifiers: Hypertension type: essential hypertension Qualified Code(s): I10 - Essential (primary) hypertension (7) Problem with dialysis access Current Visit: Yes Status: Acute Qualifiers: Encounter type: subsequent encounter Qualified Code(s): T82.898D - Other specified complication of vascular prosthetic devices, implants and grafts, subsequent encounter (8) Morbid obesity with BMI of 40.0-44.9, adult Current Visit: Yes Status: Chronic - Constitutional Vitals: Temp Pulse Resp BP Pulse Ox 97.3 F L 71 14 134/47 100 05/14/17 16:12 05/14/17 16:12 05/14/17 16:12 05/14/17 19:00 05/14/17 16:12 Internal Medicine: Result - Labs CBC & Chem 7: 05/14/17 01:35 05/14/17 01:35 Labs: Short CBC 05/14/17 Range/Units 01:35 WBC 10.5 (4.3-11.1) K/mcL Hgb 7.8 L (11.5-15.4) g/dL Hct 26.8 L (35.3-44.9) % Plt Count 207 (140-400) K/mcL Neutrophils # 7.3 (1.6-8.9) K/mcL BMP 05/14/17 01:35 Sodium 137 Potassium 4.1 Chloride 101 Carbon Dioxide 27 BUN 29 H Creatinine 2.74 H Glucose 112 H Calcium 8.5 L Cardiac Enzymes 05/14/17 05/14/17 Range/Units 01:35 06:18 Troponin I 0.07 H* 0.08 H* (0-0.03) ng/mL - ABG Interpretation ABG results: PT/INR, D-dimer PT 12.8 Seconds (9.4-12.1) H 05/13/17 18:03 - Impressions Impressions AV Shunt Angiogram 05/14/17 00:00 IMPRESSION: 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 A jump graft or revision of the anastomosis to a patent adjacent brachial or basilic vein is recommended. These results percent results communications to be called to a license caregiver D/ / Kevin Garcia MD / Kevin Garcia MD Interpreting Provider: Kevin Garcia MD Guidance Needle Placement Ultrasound 05/14/17 00:00 IMPRESSION: Successful ultrasound and fluoroscopy guided non-tunneled temporary hemodialysis catheter placement. D/ / Kevin Garcia MD / Kevin Garcia MD Interpreting Provider: Kevin Garcia MD Insertion Non-Tunneled Catheter 05/14/17 00:00 IMPRESSION: Successful ultrasound and fluoroscopy guided non-tunneled temporary hemodialysis catheter placement. D/ / Kevin Garcia MD / Kevin Garcia MD Interpreting Provider: Kevin Garcia MD - Attending Attestation I examined this patient and my medical decision-making was reviewed with the Resident Physician on 05/14/17. I agree with the documented findings, disposition and treatment plan as described except to the extent set forth below. Ms. Riley is currently admitted for acute exac chronic diastolic heart failure and issues with dialysis graft. She remains moderate to high risk due to potential for worsening respiratory and cardiac status. Ms. Riley denies issues at this time. No fever or chills. Breathing OK at this time. IR is looking at her dialysis access. No GI issues. To have dialysis as well. Exam Alert. Comfortable Mucus membranes moist Heart reg No wheeze Abd soft Edema present I/P 1. Acute exac CHF 2. DM 3. Anemia Further diagnoses and plan as above.
[2017-05-14] MEDS ORDERED: 0.9 % Sodium Chloride 1,000 ML PRIME SCH (09:15)
[2017-05-14] MEDS ORDERED: 0.9 % Sodium Chloride 250 ML IVC PRN (09:15)
[2017-05-14 10:33] LABS: Hepatitis B Surface Antigen Nonreactive (Nonreactive)
[2017-05-14 10:34] LABS: Hepatitis B Surface Antibody 506.23 mIU/mL
[2017-05-14] MEDS ORDERED: *HR* Heparin 10,000 UNIT/10 ML VIAL IV PRN (10:55)
--- NOTE | 2017-05-14 11:42 | Electrocardiograph Report ---
[address] [place], [place] [address] Test Date: 2017-05-13 Pat Name: Lynnette Riley Department: 104 Room: 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
[2017-05-14] MEDS ORDERED: Albuterol 2.5 MG/3 ML NEBULIZER IH PRN (12:08)
[2017-05-14] MEDS ORDERED: Heparin 1,000 UNITS/500 mL NS 500 ML ONE (13:01)
[2017-05-14] MEDS ORDERED: 0.9 % Sodium Chloride 500 ML ONE (13:01)
--- NOTE | 2017-05-14 13:42 | Nephrology Consult Note ---
Date of Encounter: 05/14/17 Time of Encounter: 13:37 Assessment and Plan (1) Anemia Current Visit: Yes Status: Chronic Monitor for the need for transfusion. May need KAITLIN. Qualifiers: Anemia type: other cause Other causes of anemia: chronic disease, other Qualified Code(s): D63.8 - Anemia in other chronic diseases classified elsewhere (2) ESRD on hemodialysis Current Visit: Yes Status: Chronic HD MWF. Needs dialysis today. Shuntogram has been ordered after talking with IR attending. If unable to work she will need to have a temp line placed. (3) Dyspnea Current Visit: No Status: Acute Volume overload from inadequate dialysis from poorly functioning access. Agree with echo. Qualifiers: Dyspnea type: shortness of breath Qualified Code(s): R06.02 - Shortness of breath (4) HTN (hypertension) Current Visit: No Status: Chronic blood pressure controlled. Qualifiers: Hypertension type: essential hypertension Qualified Code(s): I10 - Essential (primary) hypertension (5) Morbid (severe) obesity due to excess calories Current Visit: No Status: Chronic outpatient management. History of Present Illness - Reason for Consult Consult date: 05/14/17 end stage renal disease - Chief Complaint esrd volume overload - History of Present Illness Ms. Riley is well known to [facility] for ESRD. She dialyzes MWF. She reports she has been adherant to her schedule, but developed shortness of breath and presented to the hospital where she was found to have volume overload. At the time of evaluation she was relatively comfortable at rest with supplemental oxygen. She was told she may have a problem with her access. Past Med Surg Social Fam HX - Past Medical History Medical history: arthritis, asthma, atrial fibrillation, CHF, COPD, coronary artery disease, CVA, DVT, diabetes, dialysis, fibromyalgia, GERD, GI bleed, hyperlipidemia, hypertension, kidney stones, migraine, myocardial infarction, osteoporosis, peripheral artery disease, renal disease, other Psychiatric history: anxiety, depression, schizophrenia, previous psychiatric hospitalization, other - Past Surgical History Surgical History: angioplasty/stent, appendectomy, cholecystectomy, coronary bypass (CABG), hysterectomy, knee replacement, other, IVC filter - Social History Smoking Status: Former smoker Smokeless Tobacco Status: No Alcohol use: none Drug use: none - Family History Father Living Status: Hx Family Cardiac Disorders: Yes Hx Family Endocrine Disorder: Yes Mother Living Status: Still Living Hx Family Respiratory Disorders: Yes (end stage copd) Medications and Allergies Clopidogrel [Plavix] 75 mg PO DAILY 05/11/15 [History] Omeprazole [PriLOSEC] 20 mg PO BID 05/11/15 [History] Rosuvastatin [Crestor] 40 mg PO HS 05/11/15 [History] Sevelamer [Renvela] 800 mg PO TIDWM 05/11/15 [History] Colestipol HCl [Colestid] 1 gm PO BID 06/12/15 [History] Carvedilol 12.5 mg PO BID 10/28/15 [History] amLODIPine [Norvasc] 5 mg PO DAILY 06/09/16 [History] Gabapentin [Neurontin] 200 mg PO TID 30 Days 06/18/16 [Rx] Calcium Acetate [Phos-LO] 667 mg PO TIDWM 09/06/16 [History] Furosemide [Lasix] 80 mg PO BID 09/06/16 [History] metOLazone [Zaroxolyn] 2.5 mg PO MOWEFR 09/06/16 [History] Albuterol Sulfate [Ventolin Hfa] 2 puff IH Q4H PRN 12/29/16 [History] Tiotropium [Spiriva] 18 mcg IH DAILY 01/12/17 [History] GuaiFENesin/Dextromethorphan [Robitussin/Dm] 10 ml PO Q6HR udc 01/22/17 [Rx] Insulin LISPRO [HumaLOG] 0 - 16 units SQ 0800,1100,1600 02/05/17 [History] Sennosides/Docusate Sodium [Senna Plus] 1 tab PO DAILY 03/26/17 [History] OxyCODONE ER (12 HR) [OxyCONTIN] 20 mg PO Q12HR #14 tab.er.12h 03/30/17 [Rx] Metoclopramide [Reglan] 10 mg PO Q6HR 2 Days 04/12/17 [Rx] Ondansetron ODT [Zofran ODT] 4 mg SL Q6HR #10 tab.rapdis 04/12/17 [Rx] Folic Acid/Vit Bcomp,C [Renal Vitamin Tablet] 0.8 mg PO DAILY 04/15/17 [History] Oxycodone HCl/Acetaminophen [Percocet 10-325 mg Tablet] 1 tab PO Q6H PRN [History] Isosorbide MONOnitrate (24 HR) [Imdur] 30 mg PO DAILY #30 tab.er.24h 04/21/17 [ Rx] Darbepoetin [Aranesp] 40 mcg SQ FR 05/13/17 [History] Insulin ASPART [NovoLOG] 15 unit SQ TIDAC 05/13/17 [History] Insulin Glargine,Hum.rec.anlog [Lantus Solostar] 50 unit SQ BID 05/13/17 [ History] Insulin LISPRO [HumaLOG] 0 - 8 unit SQ HS 05/13/17 [History] Allergies No Known Allergies Allergy (Verified 01/12/17 11:29) Review of Systems All Systems: reviewed and no additional remarkable complaints except as stated ( as documented in the hpi.) Exam - Vital Signs Vital signs: Initial Vital Signs Temp Pulse Resp BP Pulse Ox 98.7 F 71 24 136/61 97 05/13/17 17:51 05/13/17 17:51 05/13/17 17:51 05/13/17 17:51 05/13/17 17:51 Vital Signs - Last 8 Hours Temp Pulse Resp BP Pulse Ox 05/14/17 11:31 97.9 F 75 16 139/78 94 05/14/17 08:26 100 05/14/17 07:49 97.9 F 86 18 145/77 100 Intake and Output 05/13/17 05/14/17 05/14/17 23:59 07:59 15:59 Intake Total 0 / 0 Output Total 375 / 375 Balance -375 / -375 Intake: Oral 0 / 0 Output: Catheter 375 / 375 Other: Meal Lunch Percent of Meal Consumed 5% Blood Glucose* 124 58 149 - General Appearance General appearance: well-developed, well-nourished, obese EENT: ATNC Neck: supple Respiratory: course breath sounds Cardiology: edema, regular rate - Dialysis Access Dialysis Vascular Access: Arteriovenous Graft (left upper arm) thrill: No bruit: Yes (high pitched flow) Gastrointestinal: no tenderness, obese Integumentary: warm and dry Neurologic: alert and oriented x3 Musculoskeletal: no cyanosis Psychiatric: mood/affect appropriate Results - Lab Results 05/14/17 01:35 05/14/17 01:35 Most recent lab results Calcium 8.5 mg/dL (8.6-10.8) L 05/14/17 01:35 Consult Discharge Plan - Plan Referrals: Tristen Quintana MD [Primary Care Provider] -
[2017-05-14] MEDS ORDERED: *HR* Heparin 5,000 UNIT/ML VIAL ONE (15:05)
[2017-05-14] MEDS: metOLazone 2.5 MG TABLET PO SCH (21:37)
[2017-05-15] MEDS: Insulin LISPRO 300 UNITS/3 ML VIAL SQ SCH ×5 (02:10→21:25)
[2017-05-15] MEDS: *HR* OxyCODONE/APAP 10/325 TABLET PO PRN ×4 (02:13→21:24)
[2017-05-15 04:54] LABS: Hemoglobin 7.9 g/dL (11.5-15.4)
[2017-05-15 04:56] LABS: Basophils # 0.1 K/mcL (0.0-0.2); Basophils % 0.8 %; Eosinophils # 0.1 K/mcL (0.0-0.6); Eosinophils % 1.5 %; Hematocrit 27.7 % (35.3-44.9); Immature Granulocytes % 0.9 % (0-4); Lymphocytes # 1.4 K/mcL (0.6-4.6); Lymphocytes % 17.9 %; Mean Corpuscular HGB Conc 28.5 g/dL (31.6-35.5); Mean Corpuscular Volume 80.8 fL (83.0-100.0); Mean Platelet Volume 9.7 fL (9.4-12.4); Monocytes # 0.7 K/mcL (0.0-1.3); Monocytes % 9.2 %; Neutrophils # 5.4 K/mcL (1.6-8.9); Platelet Count 200 K/mcL (140-400); Red Blood Count 3.43 M/mcL (3.82-4.97); Red Cell Distribution Width 20.2 % (11.5-14.5); Segmented Neutrophils % 69.7 %
[2017-05-15 05:06] LABS: Calcium 8.5 mg/dL (8.6-10.8); Potassium 3.7 mEq/L (3.5-4.5)
[2017-05-15 05:51] LABS: Anisocytosis 2+ (Not Present); Hypochromasia Present (Not Present); Macrocytosis Present (Not Present)
[2017-05-15 05:52] LABS: Platelet Estimate Normal (Normal); Polychromasia 1+ (Not Present)
[2017-05-15] MEDS: *HR* OxyCODONE ER (12 HR) 20 MG TABLET PO SCH ×2 (05:53→17:52)
[2017-05-15] MEDS: *HR* Heparin 5,000 UNIT/ML VIAL SQ SCH ×2 (05:53→17:01)
[2017-05-15] MEDS: Tiotropium 18 MCG inhalation IH SCH (07:38)
[2017-05-15] MEDS: Calcium Acetate 667 MG CAPSULE PO SCH ×3 (08:53→16:26)
[2017-05-15] MEDS: amLODIPine 5 MG TABLET PO SCH (08:53)
[2017-05-15] MEDS: Renal Vitamin 1 MG CAPSULE PO SCH (08:54)
[2017-05-15] MEDS: Isosorbide MONOnitrate (24 HR) 30 MG TAB.ER.24H PO SCH (08:54)
[2017-05-15] MEDS: Sennosides/Docusate Sodium TABLET PO SCH (08:54)
[2017-05-15] MEDS: Gabapentin 100 MG CAPSULE PO SCH ×3 (08:55→21:24)
[2017-05-15] MEDS: Furosemide 40 MG TABLET PO SCH ×2 (08:55→16:25)
[2017-05-15] MEDS: Insulin DETEMIR 100 UNIT/ML X5UNITS SQ SCH ×2 (08:57→21:25)
[2017-05-15] MEDS ORDERED: metOLazone 2.5 MG TABLET PO ONE (10:25)
--- NOTE | 2017-05-15 12:07 | Nephrology Progress Note ---
Date of Encounter: 05/15/17 Time of Encounter: 12:05 - Assessment and Plan (1) ESRD on hemodialysis Current Visit: Yes Status: Chronic Plan for dialysis tomorrow Waiting for intervention on access Continue renal diet and fluid restriction Avoid nephrotoxins if possible (2) Problem with dialysis access Current Visit: Yes Status: Acute Temp line placed Consult placed yesterday for IR-shuntogram Good dialysis treatment yesterday with temp line; 3600ml removed Qualifiers: Encounter type: subsequent encounter Qualified Code(s): T82.898D - Other specified complication of vascular prosthetic devices, implants and grafts, subsequent encounter (3) Anemia Current Visit: Yes Status: Chronic Hgb 7.9 Goal 10-11 Transfuse per parameters Qualifiers: Anemia type: due to chronic kidney disease Chronic kidney disease stage: on chronic dialysis Qualified Code(s): N18.6 - End stage renal disease; D63.1 - Anemia in chronic kidney disease; Z99.2 - Dependence on renal dialysis (4) Dyspnea Current Visit: No Status: Acute Improved with dialysis Qualifiers: Dyspnea type: shortness of breath Qualified Code(s): R06.02 - Shortness of breath Subjective Principal diagnosis: anemia, ESRD on dialysis, dyspnea Interval history: Patient seen and examined. Sitting up in chair states doesn't feel very well but is talkative. Objective - Vital Signs Vital signs: Vital Signs Temp Pulse Resp BP Pulse Ox 05/15/17 11:15 97.6 F 87 18 161/75 98 05/15/17 07:41 18 97 05/15/17 07:12 97.6 F 81 18 148/78 97 05/15/17 04:28 98.1 F 76 16 126/76 96 05/14/17 23:28 98.3 F 80 16 129/73 97 05/14/17 21:37 156/74 05/14/17 21:34 96 156/74 05/14/17 19:35 98.8 F 18 140/60 05/14/17 19:15 135/62 05/14/17 19:00 134/47 05/14/17 18:30 126/53 05/14/17 18:00 143/65 05/14/17 17:30 117/54 05/14/17 17:15 144/59 05/14/17 16:45 135/59 05/14/17 16:15 123/47 05/14/17 16:12 97.3 F L 71 14 139/66 100 05/14/17 15:45 97.3 F L 20 142/65 Intake and Output 05/14/17 05/15/17 05/15/17 23:59 07:59 15:59 Intake Total 30 / 30 Output Total 4050 / 4050 550 / 550 Balance -4050 / -4050 -520 / -520 Intake: Oral 30 / 30 Output: Urine 450 / 450 550 / 550 Urethral ([place]) 550 / 550 Total Dialysis (HD) 3600 / 3600 Output Other: Blood Glucose* 122 67 95 Hemodialysis Net Fluid 3000 Removed (mL) - General Appearance General appearance: Present: obese EENT: Present: ATNC, mucous membranes moist, hearing intact, vision intact Neck: Present: supple Respiratory: Present: clear Cardiology: Present: edema, normal S1, normal S2 Dialysis Vascular Access: Venous Catheter Gastrointestinal: Present: no tenderness, no guarding, obese Integumentary: Present: warm and dry Neurologic: Present: alert and oriented x3 Psychiatric: Present: mood/affect appropriate, cooperative - Lab 05/15/17 04:42 05/15/17 04:42 Most recent lab results Calcium 8.5 mg/dL (8.6-10.8) L 05/15/17 04:42 Consult Discharge Plan - Plan Referrals: Tristen Quintana MD [Primary Care Provider] - (patient will follow up with pcp at [facility])
--- NOTE | 2017-05-15 13:40 | Internal Med Progress Note ---
<You Márquez - Last Filed: 05/15/17 13:38> Date of Encounter: 05/15/17 Time of Encounter: 13:39 - Assessment and plan (1) ESRD (end stage renal disease) Current Visit: No Status: Chronic Assessment and plan: Patient's fistula is no longer functioning but may be able to be salvaged with angioplasty. Will require intervention by interventional radiology. Temporary access placed yesterday. Dialysis per nephrology. We will hold Plavix in anticipation of procedure on Wednesday. (2) CHF (congestive heart failure) Current Visit: Yes Status: Acute Assessment and plan: Stable. No evidence of acute exacerbation. Continue home medications. Patient does have some excess fluid today, we will give an extra dose of Zaroxolyn. Likely dialysis tomorrow per nephrology. Qualifiers: Congestive heart failure type: diastolic Congestive heart failure chronicity: chronic Qualified Code(s): I50.32 - Chronic diastolic (congestive ) heart failure (3) HTN (hypertension) Current Visit: No Status: Chronic Assessment and plan: Blood pressures have been under relatively good control. Continue medications. Continue to monitor. Qualifiers: Hypertension type: essential hypertension Qualified Code(s): I10 - Essential (primary) hypertension (4) DM2 (diabetes mellitus, type 2) Current Visit: No Status: Chronic Assessment and plan: Sugars have been well controlled. Continue Levemir 30 units twice a day with sliding scale coverage. Qualifiers: Diabetes mellitus complication status: with kidney complications Diabetes mellitus complication detail: with chronic kidney disease Diabetes mellitus terminal computer operator insulin use: with residential use Chronic kidney disease stage: on chronic dialysis Qualified Code(s): E11.22 - Type 2 diabetes mellitus with diabetic chronic kidney disease; N18.6 - End stage renal disease; Z79.4 - alf (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 of insulin; Z99.2 - Dependence on renal dialysis - Subjective Interval history: Patient seen and examined at bedside. Patient reports some increased swelling in her lower extremities that is worse than her baseline. Otherwise she has no complaints at this time. Denies chest pain, shortness of breath. - Constitutional Vitals: Temp Pulse Resp BP Pulse Ox 97.6 F 87 18 161/75 98 05/15/17 11:15 05/15/17 11:15 05/15/17 11:15 05/15/17 11:15 05/15/17 11:15 General appearance: Present: cooperative, A&O X 3, obese, answers questions appropriately - Respiratory Respiratory exam: Present: CTAB. Absent: rales, rhonchi, wheezes - Cardiovascular Cardiovascular exam: Present: RRR. Absent: gallop, rubs, systolic murmur - GI/Abdominal GI/Abdominal exam: Present: normal bowel sounds, soft. Absent: distended, tenderness - Extremities Exam Extremities exam: Present: pedal edema (2+), warm. Absent: tenderness - Neurological Exam Neurological exam: Present: alert, CN II-XII intact, oriented X3, no focal deficits Internal Medicine: Result - Labs CBC & Chem 7: 05/15/17 04:42 05/15/17 04:42 Labs: Short CBC 05/15/17 Range/Units 04:42 WBC 7.8 (4.3-11.1) K/mcL Hgb 7.9 L (11.5-15.4) g/dL Hct 27.7 L (35.3-44.9) % Plt Count 200 (140-400) K/mcL Neutrophils # 5.4 (1.6-8.9) K/mcL BMP 05/15/17 04:42 Sodium 138 Potassium 3.7 Chloride 101 Carbon Dioxide 31 H BUN 14 D Creatinine 1.66 H Glucose 80 Calcium 8.5 L - ABG Interpretation ABG results: PT/INR, D-dimer PT 12.8 Seconds (9.4-12.1) H 05/13/17 18:03 - Impressions Impressions AV Shunt Angiogram 05/14/17 00:00 IMPRESSION: 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 A jump graft or revision of the anastomosis to a patent adjacent brachial or basilic vein is recommended. These results percent results communications to be called to a license caregiver D/ / Kevin Garcia MD / Kevin Garcia MD Interpreting Provider: Kevin Garcia MD Guidance Needle Placement Ultrasound 05/14/17 00:00 IMPRESSION: Successful ultrasound and fluoroscopy guided non-tunneled temporary hemodialysis catheter placement. D/ / Kevin Garcia MD / Kevin Garcia MD Interpreting Provider: Kevin Garcia MD Insertion Non-Tunneled Catheter 05/14/17 00:00 IMPRESSION: Successful ultrasound and fluoroscopy guided non-tunneled temporary hemodialysis catheter placement. D/ / Kevin Garcia MD / Kevin Garcia MD Interpreting Provider: Kevin Garcia MD Consult Discharge Plan - Plan Referrals: Tristen Quintana MD [Primary Care Provider] - (patient will follow up with pcp at [facility]) <Wilmer Blanco - Last Filed: 05/15/17 16:25> Date of Encounter: 05/15/17 - Assessment and plan (1) Acute and chronic respiratory failure Current Visit: Yes Status: Acute Qualifiers: Respiratory failure complication: hypoxia Qualified Code(s): J96.21 - Acute and chronic respiratory failure with hypoxia (2) CHF (congestive heart failure) Current Visit: Yes Status: Acute Qualifiers: Congestive heart failure type: diastolic Congestive heart failure chronicity: chronic Qualified Code(s): I50.32 - Chronic diastolic (congestive ) heart failure (3) ESRD on hemodialysis Current Visit: Yes Status: Chronic (4) Anemia Current Visit: Yes Status: Chronic Qualifiers: Anemia type: due to chronic kidney disease Chronic kidney disease stage: on chronic dialysis Qualified Code(s): N18.6 - End stage renal disease; D63.1 - Anemia in chronic kidney disease; Z99.2 - Dependence on renal dialysis (5) Diabetes mellitus with multiple complications Current Visit: Yes Status: Chronic (6) Hypertension Current Visit: Yes Status: Chronic Qualifiers: Hypertension type: essential hypertension Qualified Code(s): I10 - Essential (primary) hypertension (7) Problem with dialysis access Current Visit: Yes Status: Acute Qualifiers: Encounter type: subsequent encounter Qualified Code(s): T82.898D - Other specified complication of vascular prosthetic devices, implants and grafts, subsequent encounter (8) Morbid obesity with BMI of 40.0-44.9, adult Current Visit: Yes Status: Chronic - Constitutional Vitals: Temp Pulse Resp BP Pulse Ox 97.6 F 87 18 161/75 98 05/15/17 11:15 05/15/17 11:15 05/15/17 11:15 05/15/17 11:15 05/15/17 11:15 Internal Medicine: Result - Labs CBC & Chem 7: 05/15/17 04:42 05/15/17 04:42 Labs: Short CBC 05/15/17 Range/Units 04:42 WBC 7.8 (4.3-11.1) K/mcL Hgb 7.9 L (11.5-15.4) g/dL Hct 27.7 L (35.3-44.9) % Plt Count 200 (140-400) K/mcL Neutrophils # 5.4 (1.6-8.9) K/mcL BMP 05/15/17 04:42 Sodium 138 Potassium 3.7 Chloride 101 Carbon Dioxide 31 H BUN 14 D Creatinine 1.66 H Glucose 80 Calcium 8.5 L - ABG Interpretation ABG results: PT/INR, D-dimer PT 12.8 Seconds (9.4-12.1) H 05/13/17 18:03 - Attending Attestation I examined this patient and my medical decision-making was reviewed with the Resident Physician on 05/15/17. I agree with the documented findings, disposition and treatment plan as described except to the extent set forth below. Ms. Riley is currently admitted for fluid overload and dialysis access issues. She remains moderate to high risk due to potential for worsening respiratory status. Ms. Riley is feeling OK. She is up in chair. Still with edema. Some pain but is chronic. No fever or chills. Diuretic restarted today. Exam Alert. Comfortable Mucus membranes moist Heart reg No wheeze Edema present Abd soft I/P 1. Fluid overload 2. Dialysis access issue Further diagnoses and plan as above.
[2017-05-16] MEDS: *HR* OxyCODONE/APAP 10/325 TABLET PO PRN ×2 (04:46→21:11)
[2017-05-16] MEDS: Calcium Acetate 667 MG CAPSULE PO SCH ×3 (08:00→16:15)
[2017-05-16] MEDS: Gabapentin 100 MG CAPSULE PO SCH ×3 (08:01→21:11)
[2017-05-16] MEDS: *HR* Heparin 5,000 UNIT/ML VIAL SQ SCH ×2 (08:01→17:21)
[2017-05-16] MEDS: *HR* OxyCODONE ER (12 HR) 20 MG TABLET PO SCH ×2 (08:01→17:21)
[2017-05-16] MEDS: Sennosides/Docusate Sodium TABLET PO SCH (08:01)
[2017-05-16] MEDS: Furosemide 40 MG TABLET PO SCH ×2 (08:01→16:14)
[2017-05-16] MEDS: amLODIPine 5 MG TABLET PO SCH (08:01)
[2017-05-16] MEDS: Isosorbide MONOnitrate (24 HR) 30 MG TAB.ER.24H PO SCH (08:02)
[2017-05-16] MEDS: Renal Vitamin 1 MG CAPSULE PO SCH (08:02)
[2017-05-16] MEDS: Tiotropium 18 MCG inhalation IH SCH (08:04)
[2017-05-16] MEDS: Insulin LISPRO 300 UNITS/3 ML VIAL SQ SCH ×4 (08:07→21:00)
--- NOTE | 2017-05-16 08:39 | Internal Med Progress Note ---
<Flores Thurston - Last Filed: 05/16/17 12:11> Date of Encounter: 05/16/17 Time of Encounter: 08:33 - Assessment and plan (1) ESRD (end stage renal disease) Current Visit: No Status: Chronic Assessment and plan: Patient's fistula is no longer functioning but may be able to be salvaged with angioplasty; will require intervention by IR. Temporary access placed 05/14. Mg 1.3, will replace today Plan: -2gm Magnesium -HD per nephrology, likely Wednesday -Hold Plavix in anticipation of procedure on Wednesday. -NPO at [facility] 05/17 -Coags in the AM (2) CHF (congestive heart failure) Current Visit: Yes Status: Acute Assessment and plan: Stable. No evidence of acute exacerbation. Plan: -Continue home medications. -Per nephrology pt will likely have HD Wednesday Qualifiers: Congestive heart failure type: diastolic Congestive heart failure chronicity: chronic Qualified Code(s): I50.32 - Chronic diastolic (congestive ) heart failure (3) Anemia of chronic disease Current Visit: Yes Status: Chronic Assessment and plan: Chronic Plan: -Continue home meds (4) Diabetes type 2, uncontrolled Current Visit: Yes Status: Chronic Assessment and plan: BS stable 95-170, 180 is an acceptable goal BS while hospitalized. Plan: -Accuchecks ACHS -Continue levemir 30units BID -Continue low-dose SSI - Qualifiers: Diabetes mellitus complication status: with kidney complications Diabetes mellitus complication detail: with chronic kidney disease Diabetes mellitus long distance operator insulin use: without long distance operator use Chronic kidney disease stage: on chronic dialysis Qualified Code(s): E11.22 - Type 2 diabetes mellitus with diabetic chronic kidney disease; E11.65 - Type 2 diabetes mellitus with hyperglycemia; N18.6 - End stage renal disease; Z99.2 - Dependence on renal dialysis (5) Elevated troponin Current Visit: Yes Status: Chronic Assessment and plan: Trop 0.08, 0.07, 0.08. Likely secondary to demand ischemia as CXR showed pulmonar congestion, bilateral infiltrates. (6) HTN (hypertension) Current Visit: No Status: Chronic Assessment and plan: Blood pressures have been under relatively good control. Plan: -Continue home medications. -Continue to monitor. Qualifiers: Hypertension type: essential hypertension Qualified Code(s): I10 - Essential (primary) hypertension - Subjective Interval history: Patient seen and examined. She states that she feels SOB, however it is at her baseline and no worse than yesterday. She states that her swelling in her hands has improved. She states that she has pain in her legs. She denies any other complaints and would like to sit up in the chair. - Constitutional Vitals: Temp Pulse Resp BP Pulse Ox 98.3 F 83 18 146/73 98 05/16/17 06:52 05/16/17 06:52 05/16/17 08:06 05/16/17 06:52 05/16/17 08:06 General appearance: Present: cooperative, A&O X 3, morbidly obese, answers questions appropriately - Head Head exam: Present: atraumatic, normocephalic - Neck Additional comments: temp HD catheter Right IJ, clean, dry and dressed, no evidence of erythema - Respiratory Respiratory exam: Present: decreased breath sounds, rales. Absent: accessory muscle use, respiratory distress, rhonchi, wheezes, tachypnea - Cardiovascular Cardiovascular exam: Present: distant heart sounds, RRR - GI/Abdominal GI/Abdominal exam: Present: normal bowel sounds, soft, no peritoneal signs. Absent: distended, tenderness - Extremities Exam Extremities exam: Present: calf tenderness, pedal edema, warm, radial pulses palpable and symetrical. Absent: cyanotic Additional comments: b/l LE with mild erythema, 2+ pitting edema Dressings present on b/l heels - Skin Skin exam: Present: dry, erythema (b/ LE), warm Additional comments: pressure wound on right heel, healing, dressing clean and dry pressure wound on left heel, healing, dressing clean and dry Internal Medicine: Result - Labs CBC & Chem 7: 05/16/17 08:11 05/16/17 08:11 - ABG Interpretation ABG results: PT/INR, D-dimer PT 12.8 Seconds (9.4-12.1) H 05/13/17 18:03 Consult Discharge Plan - Plan Referrals: Tristen Quintana MD [Primary Care Provider] - (patient will follow up with pcp at [facility]) <Wilmer Blanco - Last Filed: 05/16/17 16:34> Date of Encounter: 05/16/17 - Assessment and plan (1) Acute and chronic respiratory failure Current Visit: Yes Status: Acute Qualifiers: Respiratory failure complication: hypoxia Qualified Code(s): J96.21 - Acute and chronic respiratory failure with hypoxia (2) CHF (congestive heart failure) Current Visit: Yes Status: Acute Qualifiers: Congestive heart failure type: diastolic Congestive heart failure chronicity: chronic Qualified Code(s): I50.32 - Chronic diastolic (congestive ) heart failure (3) Anemia Current Visit: Yes Status: Chronic Qualifiers: Anemia type: due to chronic kidney disease Chronic kidney disease stage: on chronic dialysis Qualified Code(s): N18.6 - End stage renal disease; D63.1 - Anemia in chronic kidney disease; Z99.2 - Dependence on renal dialysis (4) Diabetes mellitus with multiple complications Current Visit: Yes Status: Chronic (5) Hypertension Current Visit: Yes Status: Chronic Qualifiers: Hypertension type: essential hypertension Qualified Code(s): I10 - Essential (primary) hypertension (6) Problem with dialysis access Current Visit: Yes Status: Acute Qualifiers: Encounter type: subsequent encounter Qualified Code(s): T82.898D - Other specified complication of vascular prosthetic devices, implants and grafts, subsequent encounter (7) Morbid obesity with BMI of 40.0-44.9, adult Current Visit: Yes Status: Chronic - Constitutional Vitals: Temp Pulse Resp BP Pulse Ox 98.1 F 83 18 164/77 98 05/16/17 16:12 05/16/17 16:12 05/16/17 16:12 05/16/17 16:12 05/16/17 16:12 Internal Medicine: Result - Labs CBC & Chem 7: 05/16/17 08:11 05/16/17 08:11 Labs: Short CBC 05/16/17 Range/Units 08:11 WBC 7.2 (4.3-11.1) K/mcL Hgb 8.2 L (11.5-15.4) g/dL Hct 29.5 L (35.3-44.9) % Plt Count 215 (140-400) K/mcL Neutrophils # 4.8 (1.6-8.9) K/mcL BMP 05/16/17 08:11 Sodium 140 Potassium 3.6 Chloride 106 Carbon Dioxide 27 BUN 19 Creatinine 1.81 H Glucose 152 H Calcium 7.6 L - ABG Interpretation ABG results: PT/INR, D-dimer PT 12.8 Seconds (9.4-12.1) H 05/13/17 18:03 - Attending Attestation I examined this patient and my medical decision-making was reviewed with the Resident Physician on 05/16/17. I agree with the documented findings, disposition and treatment plan as described except to the extent set forth below. Ms. Riley is currently admitted for fluid overload related to malfuntioning dialysis access. She is moderate to high risk due to potential for worsening respiratory status. Ms. Riley is doing OK. Her swelling is about the same today. No worsening breathing issues. No fever or chills. Has been up to chair. Anticipating intervention in access tomorrow. Exam Alert. Comfortable Mucus membranes dry Heart reg No wheeze Edema present. I/P 1. Fluid overload 2. Dialysis access issue Further diagnoses and plan as above.
[2017-05-16 08:56] LABS: Hemoglobin 8.2 g/dL (11.5-15.4); Red Cell Distribution Width 20.2 % (11.5-14.5)
[2017-05-16 08:57] LABS: Basophils % 0.6 %; Eosinophils # 0.1 K/mcL (0.0-0.6); Eosinophils % 1.9 %; Hematocrit 29.5 % (35.3-44.9); Immature Granulocytes % 0.6 % (0-4); Lymphocytes # 1.4 K/mcL (0.6-4.6); Lymphocytes % 19.9 %; Mean Corpuscular HGB Conc 27.8 g/dL (31.6-35.5); Mean Corpuscular Hemoglobin 22.8 pg (28.0-33.3); Mean Corpuscular Volume 81.9 fL (83.0-100.0); Mean Platelet Volume 9.9 fL (9.4-12.4); Monocytes # 0.7 K/mcL (0.0-1.3); Monocytes % 10.1 %; Platelet Count 215 K/mcL (140-400); Segmented Neutrophils % 66.9 %
[2017-05-16 09:05] LABS: Neutrophils # 4.8 K/mcL (1.6-8.9)
[2017-05-16 09:10] LABS: Calcium 7.6 mg/dL (8.6-10.8); Magnesium 1.3 mg/dL (1.6-2.6); Potassium 3.6 mEq/L (3.5-4.5)
[2017-05-16] MEDS ORDERED: Magnesium Sulfate 2 GM in D5% in Water 100 ML IVPB ONE (09:34)
--- NOTE | 2017-05-16 10:09 | Nephrology Progress Note ---
Date of Encounter: 05/16/17 Time of Encounter: 10:08 - Assessment and Plan (1) ESRD on hemodialysis Current Visit: Yes Status: Chronic Next HD is planned for tomorrow. She will need a fistulagram to attempt to improve her AV access. The RIJ temporary HD catheter appears sufficient for use for the planned HD tomorrow. The IR group here in the hospital asks to wait five days after holding Plavix. (2) Problem with dialysis access Current Visit: Yes Status: Acute See above Qualifiers: Encounter type: subsequent encounter Qualified Code(s): T82.898D - Other specified complication of vascular prosthetic devices, implants and grafts, subsequent encounter (3) Anemia of chronic disease Current Visit: Yes Status: Chronic Anemia of CKD, with goal of Hgb 10-11. Subjective Principal diagnosis: anemia, ESRD on dialysis, dyspnea Interval history: Pt was seen and examined, she did not affirm N/V/D or uremia Objective - Vital Signs Vital signs: Vital Signs Temp Pulse Resp BP Pulse Ox 05/16/17 08:06 18 98 05/16/17 06:52 98.3 F 83 16 146/73 97 05/16/17 04:23 97.9 F 84 16 143/73 96 05/16/17 00:20 97.9 F 78 18 127/66 95 05/15/17 19:14 98.1 F 82 16 127/66 92 05/15/17 16:16 97.7 F 85 18 171/75 98 05/15/17 11:15 97.6 F 87 18 161/75 98 Intake and Output 05/15/17 05/16/17 05/16/17 23:59 07:59 15:59 Intake Total 60 / 60 120 / 120 Output Total 450 / 450 Balance -390 / -390 120 / 120 Intake: Oral 60 / 60 120 / 120 Output: Catheter 450 / 450 Other: Meal Breakfast Percent of Meal Consumed 50% # Bowel Movements 0 Weight 127.732 kg Blood Glucose* 120 171 Patient Weight 05/16/17 23:59 Weight 127.732 kg - General Appearance Exam: General appearance: Present: obese EENT: Present: ATNC, mucous membranes moist, hearing intact, vision intact Neck: Present: supple Respiratory: Present: clear Cardiology: Present: edema, normal S1, normal S2 Dialysis Vascular Access: Venous Catheter Gastrointestinal: Present: no tenderness, no guarding, obese Integumentary: Present: warm and dry Neurologic: Present: alert and oriented x3 Psychiatric: Present: mood/affect appropriate, cooperative - Lab 05/16/17 08:11 05/16/17 08:11 Most recent lab results Calcium 7.6 mg/dL (8.6-10.8) L 05/16/17 08:11 Magnesium 1.3 mg/dL (1.6-2.6) L 05/16/17 08:11 Consult Discharge Plan - Plan Referrals: Tristen Quintana MD [Primary Care Provider] - (patient will follow up with pcp at [facility])
[2017-05-16] MEDS: Insulin DETEMIR 100 UNIT/ML X5UNITS SQ SCH ×2 (10:27→21:19)
[2017-05-16 11:07] LABS: Anisocytosis 1+ (Not Present); Hypochromasia Present (Not Present)
[2017-05-16 11:09] LABS: Platelet Estimate Normal (Normal)
[2017-05-17] MEDS: *HR* OxyCODONE/APAP 10/325 TABLET PO PRN ×3 (04:25→21:27)
[2017-05-17 04:50] LABS: INR 1.2; Prothrombin Time 12.7 Seconds (9.4-12.1)
[2017-05-17 04:52] LABS: Activated Partial Thrombo Time 32.9 Seconds (26.0-36.0)
[2017-05-17 04:55] LABS: Basophils # 0.1 K/mcL (0.0-0.2); Basophils % 0.6 %; Eosinophils # 0.1 K/mcL (0.0-0.6); Eosinophils % 1.3 %; Hematocrit 27.6 % (35.3-44.9); Immature Granulocytes % 0.6 % (0-4); Lymphocytes # 1.3 K/mcL (0.6-4.6); Lymphocytes % 11.8 %; Mean Corpuscular Hemoglobin 23.5 pg (28.0-33.3); Mean Corpuscular Volume 80.9 fL (83.0-100.0); Mean Platelet Volume 9.5 fL (9.4-12.4); Monocytes # 0.8 K/mcL (0.0-1.3); Monocytes % 7.1 %; Neutrophils # 8.5 K/mcL (1.6-8.9); Platelet Count 197 K/mcL (140-400); Red Blood Count 3.41 M/mcL (3.82-4.97); Red Cell Distribution Width 20.2 % (11.5-14.5); Segmented Neutrophils % 78.6 %
[2017-05-17 04:57] LABS: Magnesium 1.9 mg/dL (1.6-2.6); Potassium 3.6 mEq/L (3.5-4.5)
[2017-05-17] MEDS ORDERED: 0.9 % Sodium Chloride 250 ML IVC PRN (05:42)
[2017-05-17] MEDS: *HR* OxyCODONE ER (12 HR) 20 MG TABLET PO SCH ×2 (06:18→17:00)
[2017-05-17] MEDS: Tiotropium 18 MCG inhalation IH SCH (07:36)
[2017-05-17] MEDS: *HR* Heparin 5,000 UNIT/ML VIAL SQ SCH ×3 (07:49→17:11)
[2017-05-17] MEDS: Insulin LISPRO 300 UNITS/3 ML VIAL SQ SCH ×4 (08:25→21:28)
[2017-05-17] MEDS: Calcium Acetate 667 MG CAPSULE PO SCH ×3 (08:27→17:00)
[2017-05-17] MEDS ORDERED: 0.9 % Sodium Chloride 2,000 ML ONE (08:27)
[2017-05-17] MEDS: Furosemide 40 MG TABLET PO SCH ×2 (08:27→16:59)
[2017-05-17] MEDS: amLODIPine 5 MG TABLET PO SCH (08:28)
[2017-05-17] MEDS: Isosorbide MONOnitrate (24 HR) 30 MG TAB.ER.24H PO SCH (08:28)
[2017-05-17] MEDS: Insulin DETEMIR 100 UNIT/ML X5UNITS SQ SCH ×2 (10:09→21:28)
[2017-05-17] MEDS: Sennosides/Docusate Sodium TABLET PO SCH (10:21)
[2017-05-17] MEDS: Gabapentin 100 MG CAPSULE PO SCH ×3 (10:21→21:27)
[2017-05-17] MEDS: Renal Vitamin 1 MG CAPSULE PO SCH (10:21)
--- NOTE | 2017-05-17 13:15 | Nephrology Progress Note ---
Date of Encounter: 05/17/17 Time of Encounter: 09:50 - Assessment and Plan (1) ESRD on hemodialysis Current Visit: Yes Status: Chronic Patient seen on dialysis. She still has significant volume overload. Plan for UF on Wednesday. (2) Anemia Current Visit: Yes Status: Chronic Monitor hemoglobin. Transfuse as needed. Qualifiers: Anemia type: due to chronic kidney disease Chronic kidney disease stage: on chronic dialysis Qualified Code(s): N18.6 - End stage renal disease; D63.1 - Anemia in chronic kidney disease; Z99.2 - Dependence on renal dialysis (3) Dyspnea Current Visit: No Status: Acute Continue fluid removal and attempt to reach euvolemia. UF as needed. Qualifiers: Dyspnea type: shortness of breath Qualified Code(s): R06.02 - Shortness of breath (4) HTN (hypertension) Current Visit: No Status: Chronic UF and continue antihypertensives as needed. Qualifiers: Hypertension type: essential hypertension Qualified Code(s): I10 - Essential (primary) hypertension (5) Morbid (severe) obesity due to excess calories Current Visit: No Status: Chronic Outpatient management. Subjective Principal diagnosis: anemia, ESRD on dialysis, dyspnea Interval history: Patient was seen on dialysis. She was concerned about having a yeast infection in her groin and wanted nystatin powder. ROS otherwise stable. Objective - Vital Signs Vital signs: Vital Signs Temp Pulse Resp BP Pulse Ox 05/17/17 10:30 94 05/17/17 07:53 97.8 F 83 15 132/66 94 05/17/17 07:38 15 96 05/17/17 04:04 97.9 F 88 16 139/82 94 05/16/17 23:12 98.2 F 85 16 146/65 96 05/16/17 19:07 97.9 F 78 16 137/68 97 05/16/17 16:12 98.1 F 83 18 164/77 98 Intake and Output 05/16/17 05/17/17 05/17/17 23:59 07:59 15:59 Intake Total 0 / 0 0 / 0 Output Total 200 / 200 900 / 900 Balance -200 / -200 -900 / -900 Intake: Oral 0 / 0 0 / 0 Output: Catheter 200 / 200 900 / 900 Other: Meal NPO Percent of Meal Consumed 0% # Bowel Movement Diapers 0 Weight 127.006 kg Blood Glucose* 182 112 91 Patient Weight 05/17/17 23:59 Weight 127.006 kg - General Appearance General appearance: Present: well-developed, well-nourished, obese EENT: Present: ATNC Neck: Present: supple Cardiology: Present: edema Gastrointestinal: Present: obese Integumentary: Present: warm and dry Neurologic: Present: alert and oriented x3 Musculoskeletal: Present: no cyanosis - Lab 05/17/17 04:42 05/17/17 04:42 Most recent lab results Calcium 9.0 mg/dL (8.6-10.8) D 05/17/17 04:42 Magnesium 1.9 mg/dL (1.6-2.6) 05/17/17 04:42 Consult Discharge Plan - Plan Referrals: Tristen Quintana MD [Primary Care Provider] - (patient will follow up with pcp at [facility])
--- NOTE | 2017-05-17 14:33 | Internal Med Progress Note ---
<Adam Coffey - Last Filed: 05/17/17 14:27> Date of Encounter: 05/17/17 Time of Encounter: 14:27 - Assessment and plan (1) ESRD on hemodialysis Current Visit: Yes Status: Chronic Assessment and plan: IR placed temporary access. Day 2 of 5 of plavix hold. Fistula arteriogram scheduled for . Will continue dialysis on Wed. (2) CHF (congestive heart failure) Current Visit: Yes Status: Acute Assessment and plan: Stable. No evidence of acute exacerbation. Plan: -Continue home medications. - HD today Qualifiers: Congestive heart failure type: diastolic Congestive heart failure chronicity: chronic Qualified Code(s): I50.32 - Chronic diastolic (congestive ) heart failure (3) Diabetes type 2, uncontrolled Current Visit: Yes Status: Chronic Assessment and plan: BS stable 95-170, 180 is an acceptable goal BS while hospitalized. 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 Likely secondary to demand ischemia as CXR showed pulmonar congestion, bilateral infiltrates. (6) Diabetes mellitus with multiple complications Current Visit: Yes Status: Chronic Assessment and plan: continue accuchecks, basal insulin and sliding scale (7) HTN (hypertension) Current Visit: No Status: Chronic Assessment and plan: Blood pressures have been under relatively good control. Plan: -Continue home medications. -Continue to monitor. Qualifiers: Hypertension type: essential hypertension Qualified Code(s): I10 - Essential (primary) hypertension - Subjective Interval history: Lynnette is a 62 yo F on Day 4 of admission. She came by ED with a cc of SOB. She was admitted 2/2 pulmonary congestion and bilateral lower lobe infiltrates. She has a temporary temporary access in [facility]. She is waiting for fistual arteriogram on due to 5 days hold of plavix needed. Today day 2 of 5 hold. Patient received dialysis today. she denies chest pain, fever, chills. Patient has RA and ANCA vasculitis and currently is followed by [facility] rheum. - Constitutional Vitals: Temp Pulse Resp BP Pulse Ox 98.4 F 87 16 139/73 97 05/17/17 13:27 05/17/17 13:27 05/17/17 13:27 05/17/17 13:27 05/17/17 13:27 General appearance: Present: cooperative, A&O X 3, morbidly obese, answers questions appropriately - Head Head exam: Present: atraumatic, normocephalic - Respiratory Respiratory exam: Present: CTAB. Absent: accessory muscle use, rales, rhonchi, wheezes - Cardiovascular Cardiovascular exam: Present: RRR, +S1, +S2. Absent: diastolic murmur, gallop, rubs, systolic murmur - GI/Abdominal GI/Abdominal exam: Present: normal bowel sounds, soft, no peritoneal signs. Absent: distended, tenderness Internal Medicine: Result - Labs CBC & Chem 7: 05/17/17 04:42 05/17/17 04:42 Labs: Short CBC 05/17/17 Range/Units 04:42 WBC 10.8 (4.3-11.1) K/mcL Hgb 8.0 L (11.5-15.4) g/dL Hct 27.6 L (35.3-44.9) % Plt Count 197 (140-400) K/mcL Neutrophils # 8.5 (1.6-8.9) K/mcL BMP 05/17/17 04:42 Sodium 137 Potassium 3.6 Chloride 99 Carbon Dioxide 31 H BUN 27 H Creatinine 2.47 H Glucose 115 H Calcium 9.0 D - ABG Interpretation ABG results: PT/INR, D-dimer PT 12.7 Seconds (9.4-12.1) H 05/17/17 04:42 Consult Discharge Plan - Plan Referrals: Tristen Quintana MD [Primary Care Provider] - (patient will follow up with pcp at [facility]) <Wilmer Blanco - Last Filed: 05/17/17 19:01> Date of Encounter: 05/17/17 - Assessment and plan (1) Acute and chronic respiratory failure Current Visit: Yes Status: Acute Qualifiers: Respiratory failure complication: hypoxia Qualified Code(s): J96.21 - Acute and chronic respiratory failure with hypoxia (2) CHF (congestive heart failure) Current Visit: Yes Status: Acute Qualifiers: Congestive heart failure type: diastolic Congestive heart failure chronicity: chronic Qualified Code(s): I50.32 - Chronic diastolic (congestive ) heart failure (3) Anemia Current Visit: Yes Status: Chronic Qualifiers: Anemia type: due to chronic kidney disease Chronic kidney disease stage: on chronic dialysis Qualified Code(s): N18.6 - End stage renal disease; D63.1 - Anemia in chronic kidney disease; Z99.2 - Dependence on renal dialysis (4) Diabetes mellitus with multiple complications Current Visit: Yes Status: Chronic (5) Hypertension Current Visit: Yes Status: Chronic Qualifiers: Hypertension type: essential hypertension Qualified Code(s): I10 - Essential (primary) hypertension (6) Problem with dialysis access Current Visit: Yes Status: Acute Qualifiers: Encounter type: subsequent encounter Qualified Code(s): T82.898D - Other specified complication of vascular prosthetic devices, implants and grafts, subsequent encounter (7) Morbid obesity with BMI of 40.0-44.9, adult Current Visit: Yes Status: Chronic - Constitutional Vitals: Temp Pulse Resp BP Pulse Ox 98.1 F 84 20 140/57 95 05/17/17 16:39 05/17/17 16:39 05/17/17 16:39 05/17/17 16:39 05/17/17 16:39 Internal Medicine: Result - Labs CBC & Chem 7: 05/17/17 04:42 05/17/17 04:42 Labs: Short CBC 05/17/17 Range/Units 04:42 WBC 10.8 (4.3-11.1) K/mcL Hgb 8.0 L (11.5-15.4) g/dL Hct 27.6 L (35.3-44.9) % Plt Count 197 (140-400) K/mcL Neutrophils # 8.5 (1.6-8.9) K/mcL BMP 05/17/17 04:42 Sodium 137 Potassium 3.6 Chloride 99 Carbon Dioxide 31 H BUN 27 H Creatinine 2.47 H Glucose 115 H Calcium 9.0 D - ABG Interpretation ABG results: PT/INR, D-dimer PT 12.7 Seconds (9.4-12.1) H 05/17/17 04:42 - Impressions Impressions Echocardiogram 05/14/17 11:56 Impressions: LVEF 60%. Normal left ventricular size and systolic function. Mild increase in LV wall thickness. Indeterminate left ventricular diastolic function. Normal right ventricular size and function. Mild mitral regurgitation. Mild tricuspid regurgitation. Mild pulmonary hypertension. Left Ventricular Wall Motion: Rest Echo Findings All wall segments showed normal motion. Findings: Study Quality * Technically adequate exam. ECG Findings * Atrial fibrillation. Left Ventricle * Indeterminate diastolic function. * Mild concentric left ventricular hypertrophy. * LVEF 60%. * Normal LV size. Aorta * Not well visualized. Aortic Valve * Aortic valve not well visualized. * No aortic stenosis. * Trace aortic regurgitation. Mitral Valve * Normal mitral valve structure. * Mild mitral regurgitation. * No mitral stenosis. Tricuspid Valve * Tricuspid valve not well visualized. * Mild tricuspid regurgitation. * Estimated RA pressure is 3 mmHg. * Estimated RVSP is 36 mmHg. * Mild pulmonary hypertension. Pulmonic Valve * Pulmonic valve is not well visualized. * No pulmonic stenosis. * No pulmonic regurgitation. Pulmonary Artery * Pulmonary artery not well visualized. Right Atrium * Normal right atrial size. Left Atrium * Severely dilated left atrium. Right Ventricle * Normal RV size with normal function. Interatrial Septum * Interatrial septum not well evaluated. Pericardium * There is no pericardial effusion present. IVC * The IVC is not dilated. * < 50% respiratory change. - Attending Attestation I examined this patient and my medical decision-making was reviewed with the Resident Physician on 05/17/17. I agree with the documented findings, disposition and treatment plan as described except to the extent set forth below. Ms. Riley is currently admitted for fluid overload and dialysis access issues. She remains moderate risk due to potential for worsening respiratory issues. Ms. Riley is feeling OK. No new issues overnight. IR wants Plavix held 5 days (was OK that it wasn't on Wednesday). No fever or chills. Exam Alert. Comfortable Mucus membranes moist Heart reg No wheeze Abd soft I/P 1. Fluid overload 2. ESRD Further diagnoses and plan as above.
[2017-05-17] MEDS: metOLazone 2.5 MG TABLET PO SCH (21:27)
[2017-05-17] MEDS: Nystatin POWDER 30 GM BOTTLE TP SCH (21:28)
[2017-05-18] MEDS: *HR* OxyCODONE/APAP 10/325 TABLET PO PRN ×3 (04:13→21:06)
[2017-05-18 04:42] LABS: Basophils # 0.1 K/mcL (0.0-0.2); Basophils % 0.6 %; Eosinophils # 0.1 K/mcL (0.0-0.6); Eosinophils % 1.5 %; Hematocrit 28.6 % (35.3-44.9); Hemoglobin 8.1 g/dL (11.5-15.4); Immature Granulocytes % 0.4 % (0-4); Lymphocytes % 12.5 %; Mean Corpuscular HGB Conc 28.3 g/dL (31.6-35.5); Mean Corpuscular Hemoglobin 22.8 pg (28.0-33.3); Mean Corpuscular Volume 80.6 fL (83.0-100.0); Mean Platelet Volume 9.5 fL (9.4-12.4); Monocytes # 0.8 K/mcL (0.0-1.3); Monocytes % 9.8 %; Platelet Count 195 K/mcL (140-400); Red Blood Count 3.55 M/mcL (3.82-4.97); Red Cell Distribution Width 20.1 % (11.5-14.5); Segmented Neutrophils % 75.2 %
[2017-05-18 05:01] LABS: Calcium 9.1 mg/dL (8.6-10.8); Magnesium 1.7 mg/dL (1.6-2.6); Potassium 3.6 mEq/L (3.5-4.5)
[2017-05-18] MEDS: *HR* OxyCODONE ER (12 HR) 20 MG TABLET PO SCH ×2 (05:26→17:41)
[2017-05-18] MEDS: *HR* Heparin 5,000 UNIT/ML VIAL SQ SCH ×2 (05:26→17:41)
[2017-05-18 05:32] LABS: Anisocytosis 1+ (Not Present); Hypochromasia Present (Not Present); Platelet Estimate Normal (Normal); Poikilocytosis 1+ (Not Present)
[2017-05-18] MEDS ORDERED: 0.9 % Sodium Chloride 250 ML IVC PRN (07:38)
[2017-05-18] MEDS ORDERED: *HR* Heparin 10,000 UNIT/10 ML VIAL IV PRN (07:38)
[2017-05-18] MEDS ORDERED: 0.9 % Sodium Chloride 1,000 ML PRIME SCH (07:45)
[2017-05-18] MEDS: Tiotropium 18 MCG inhalation IH SCH (08:00)
[2017-05-18] MEDS ORDERED: 0.9 % Sodium Chloride 2,000 ML ONE (08:04)
--- NOTE | 2017-05-18 09:00 | Nephrology Progress Note ---
Date of Encounter: 05/18/17 Time of Encounter: 08:58 - Assessment and Plan (1) ESRD on hemodialysis Current Visit: Yes Status: Chronic Currently getting UF today Plan for dialysis tomorrow Waiting for intervention on access-most likely ; Plavix on hold Continue renal diet and fluid restriction Avoid nephrotoxins if possible (2) Problem with dialysis access Current Visit: Yes Status: Acute Temp line placed Fistulogram planned for Plavix on hold Qualifiers: Encounter type: subsequent encounter Qualified Code(s): T82.898D - Other specified complication of vascular prosthetic devices, implants and grafts, subsequent encounter (3) Anemia Current Visit: Yes Status: Chronic Hgb 8.1 Goal 10-11 Transfuse per parameters Qualifiers: Anemia type: due to chronic kidney disease Chronic kidney disease stage: on chronic dialysis Qualified Code(s): N18.6 - End stage renal disease; D63.1 - Anemia in chronic kidney disease; Z99.2 - Dependence on renal dialysis (4) Dyspnea Current Visit: No Status: Acute Improved with dialysis Qualifiers: Dyspnea type: shortness of breath Qualified Code(s): R06.02 - Shortness of breath Subjective Principal diagnosis: anemia, ESRD on dialysis, dyspnea Interval history: Patient seen and examined while on dialysis. States she is feeling much better. Objective - Vital Signs Vital signs: Vital Signs Temp Pulse Resp BP Pulse Ox 05/18/17 08:00 18 98 05/18/17 07:49 98.1 F 91 17 157/76 97 05/18/17 04:28 98.2 F 88 20 173/81 98 05/17/17 23:29 98.6 F 87 16 143/69 97 05/17/17 19:55 98.2 F 104 17 150/71 94 05/17/17 16:39 98.1 F 84 20 140/57 95 05/17/17 13:27 98.4 F 87 16 139/73 97 05/17/17 12:30 97.8 F 18 141/53 05/17/17 12:10 148/52 05/17/17 11:40 139/50 05/17/17 11:10 133/49 05/17/17 10:40 140/46 05/17/17 10:30 94 05/17/17 10:10 137/62 08/07/17 09:40 129/54 05/17/17 09:10 129/66 Intake and Output 05/17/17 05/18/17 05/18/17 23:59 07:59 15:59 Intake Total 0 / 0 Output Total 525 / 525 250 / 250 Balance -525 / -525 -250 / -250 Intake: Oral 0 / 0 Output: Catheter 525 / 525 250 / 250 Other: Meal Dinner Percent of Meal Consumed 5% Weight 127.3 kg Blood Glucose* 146 145 Patient Weight 05/18/17 23:59 Weight 127.3 kg - General Appearance General appearance: Present: obese EENT: Present: ATNC, mucous membranes moist, hearing intact, vision intact Neck: Present: supple Respiratory: Present: clear Cardiology: Present: edema, normal S1, normal S2 Dialysis Vascular Access: Venous Catheter Gastrointestinal: Present: no tenderness, no guarding Integumentary: Present: warm and dry Neurologic: Present: alert and oriented x3 Psychiatric: Present: mood/affect appropriate, cooperative - Lab 05/18/17 04:23 05/18/17 04:23 Most recent lab results Calcium 9.1 mg/dL (8.6-10.8) 05/18/17 04:23 Magnesium 1.7 mg/dL (1.6-2.6) 05/18/17 04:23 Consult Discharge Plan - Plan Referrals: Tristen Quintana MD [Primary Care Provider] - (patient will follow up with pcp at [facility])
[2017-05-18] MEDS: Insulin LISPRO 300 UNITS/3 ML VIAL SQ SCH ×4 (09:32→21:06)
[2017-05-18] MEDS: Renal Vitamin 1 MG CAPSULE PO SCH (09:38)
[2017-05-18] MEDS: Gabapentin 100 MG CAPSULE PO SCH ×3 (09:38→21:06)
[2017-05-18] MEDS: Sennosides/Docusate Sodium TABLET PO SCH (09:39)
[2017-05-18] MEDS: Insulin DETEMIR 100 UNIT/ML X5UNITS SQ SCH ×2 (09:39→21:06)
--- NOTE | 2017-05-18 10:47 | Internal Med Progress Note ---
<Adam Coffey - Last Filed: 05/18/17 10:58> Date of Encounter: 05/18/17 Time of Encounter: 10:39 - Assessment and plan (1) ESRD on hemodialysis Current Visit: Yes Status: Chronic Assessment and plan: IR placed temporary access. Day 3 of 5 of plavix hold. Fistula arteriogram scheduled for . uncontrolled pain after returning from dialysis. 0.5mg dilaudid once was given. (2) CHF (congestive heart failure) Current Visit: Yes Status: Acute Assessment and plan: Stable. No evidence of acute exacerbation. Plan: -Continue home medications. - HD today Qualifiers: Congestive heart failure type: diastolic Congestive heart failure chronicity: chronic Qualified Code(s): I50.32 - Chronic diastolic (congestive ) heart failure (3) Diabetes type 2, uncontrolled Current Visit: Yes Status: Chronic Assessment and plan: BS stable 95-170, 180 is an acceptable goal BS while hospitalized. Plan: -Accuchecks ACHS -Continue levemir 15units BID -Continue low-dose SSI - Qualifiers: Diabetes mellitus complication status: with kidney complications Diabetes mellitus complication detail: with chronic kidney disease Diabetes mellitus residential insulin use: without residential use Chronic kidney disease stage: on chronic dialysis Qualified Code(s): E11.22 - Type 2 diabetes mellitus with diabetic chronic kidney disease; E11.65 - Type 2 diabetes mellitus with hyperglycemia; N18.6 - End stage renal disease; Z99.2 - Dependence on renal dialysis (4) Anemia of chronic disease Current Visit: Yes Status: Chronic Assessment and plan: Chronic Plan: -Continue home meds (5) Elevated troponin Current Visit: Yes Status: Chronic Assessment and plan: Trop 0.08, 0.07, 0.08. Likely secondary to demand ischemia as CXR showed pulmonar congestion, bilateral infiltrates. (6) Diabetes mellitus with multiple complications Current Visit: Yes Status: Chronic Assessment and plan: continue accuchecks, basal insulin and sliding scale (7) HTN (hypertension) Current Visit: No Status: Chronic Assessment and plan: Blood pressures have been under relatively good control. Plan: -Continue home medications. -Continue to monitor. Qualifiers: Hypertension type: essential hypertension Qualified Code(s): I10 - Essential (primary) hypertension - Subjective Interval history: Lynnette is a 62 yo F on Day 5 of admission. She came by ED with a cc of SOB. She was admitted 2/2 pulmonary congestion and bilateral lower lobe infiltrates. She has a temporary temporary access in [facility]. She is waiting for fistual arteriogram on due to 5 days hold of plavix needed. Today day 3 of 5 hold. Patient received dialysis today. she denies chest pain, fever, chills. Patient has RA and ANCA vasculitis and currently is followed by [facility] rheum. she does report continuation of pain of her right shoulder that started during hospitalization and abdominal-groin pain/aching after dialysis. Patient was disoriented and did not remember who I was. - Constitutional Vitals: Temp Pulse Resp BP Pulse Ox 97.4 F L 91 22 150/74 98 05/18/17 08:20 05/18/17 07:49 05/18/17 08:20 05/18/17 09:05 05/18/17 08:00 General appearance: Present: cooperative, A&O X 3, morbidly obese, answers questions appropriately - Respiratory Respiratory exam: Present: CTAB. Absent: accessory muscle use, rales, rhonchi, wheezes - Cardiovascular Cardiovascular exam: Present: RRR, +S1, +S2. Absent: diastolic murmur, gallop, rubs, systolic murmur - GI/Abdominal GI/Abdominal exam: Present: normal bowel sounds, soft, no peritoneal signs. Absent: distended, tenderness - Extremities Exam Extremities exam: Present: warm, radial pulses palpable and symetrical. Absent : calf tenderness, cyanotic, pedal edema - Neurological Exam Neurological exam: Present: altered Internal Medicine: Result - Labs CBC & Chem 7: 05/18/17 04:23 05/18/17 04:23 Labs: Short CBC 05/18/17 Range/Units 04:23 WBC 8.0 (4.3-11.1) K/mcL Hgb 8.1 L (11.5-15.4) g/dL Hct 28.6 L (35.3-44.9) % Plt Count 195 (140-400) K/mcL Neutrophils # 6.0 (1.6-8.9) K/mcL BMP 05/18/17 04:23 Sodium 138 Potassium 3.6 Chloride 100 Carbon Dioxide 32 H BUN 15 D Creatinine 1.69 H Glucose 115 H Calcium 9.1 - ABG Interpretation ABG results: PT/INR, D-dimer PT 12.7 Seconds (9.4-12.1) H 05/17/17 04:42 - Impressions Impressions Echocardiogram 05/14/17 11:56 Impressions: LVEF 60%. Normal left ventricular size and systolic function. Mild increase in LV wall thickness. Indeterminate left ventricular diastolic function. Normal right ventricular size and function. Mild mitral regurgitation. Mild tricuspid regurgitation. Mild pulmonary hypertension. Left Ventricular Wall Motion: Rest Echo Findings All wall segments showed normal motion. Findings: Study Quality * Technically adequate exam. ECG Findings * Atrial fibrillation. Left Ventricle * Indeterminate diastolic function. * Mild concentric left ventricular hypertrophy. * LVEF 60%. * Normal LV size. Aorta * Not well visualized. Aortic Valve * Aortic valve not well visualized. * No aortic stenosis. * Trace aortic regurgitation. Mitral Valve * Normal mitral valve structure. * Mild mitral regurgitation. * No mitral stenosis. Tricuspid Valve * Tricuspid valve not well visualized. * Mild tricuspid regurgitation. * Estimated RA pressure is 3 mmHg. * Estimated RVSP is 36 mmHg. * Mild pulmonary hypertension. Pulmonic Valve * Pulmonic valve is not well visualized. * No pulmonic stenosis. * No pulmonic regurgitation. Pulmonary Artery * Pulmonary artery not well visualized. Right Atrium * Normal right atrial size. Left Atrium * Severely dilated left atrium. Right Ventricle * Normal RV size with normal function. Interatrial Septum * Interatrial septum not well evaluated. Pericardium * There is no pericardial effusion present. IVC * The IVC is not dilated. * < 50% respiratory change. Consult Discharge Plan - Plan Referrals: Tristen Quintana MD [Primary Care Provider] - ([facility]) <Papito Stoll - Last Filed: 05/18/17 15:36> Date of Encounter: 05/18/17 - Constitutional Vitals: Temp Pulse Resp BP Pulse Ox 98.1 F 94 17 148/77 99 05/18/17 11:22 05/18/17 11:22 05/18/17 11:22 05/18/17 11:22 05/18/17 11:22 Internal Medicine: Result - Labs CBC & Chem 7: 05/18/17 04:23 05/18/17 04:23 Labs: Short CBC 05/18/17 Range/Units 04:23 WBC 8.0 (4.3-11.1) K/mcL Hgb 8.1 L (11.5-15.4) g/dL Hct 28.6 L (35.3-44.9) % Plt Count 195 (140-400) K/mcL Neutrophils # 6.0 (1.6-8.9) K/mcL BMP 05/18/17 04:23 Sodium 138 Potassium 3.6 Chloride 100 Carbon Dioxide 32 H BUN 15 D Creatinine 1.69 H Glucose 115 H Calcium 9.1 - ABG Interpretation ABG results: PT/INR, D-dimer PT 12.7 Seconds (9.4-12.1) H 05/17/17 04:42 - Attending Attestation I examined this patient and my medical decision-making was reviewed with the Resident Physician on 05/18/17. I agree with the documented findings, disposition and treatment plan as described except to the extent set forth below. 62 F with ESRD on HD, (current access is via [facility]), CHFpEF, DM2, Anemia of chronic disease, HTN, Complicated DM Seen and evaluated at bedside Only complain is shoulder pain which is relieved by diluadid She also complained of cramping after HD She is awaiting fistulogrram Physical Exam: Alert, Comfortable, not in distress, chest CTAB, Abdomen is benign, LE with chronic venous stasis changes, chronic venous stasis changes on LE, with Stage II R foot decubitus ulcer, Stage I L foot ulcer, dressed, dressing clean and dry Labs and Imaging reviewed Plan: Continue current care
[2017-05-18] MEDS ORDERED: *HR* HYDROmorphone (PF) 1 MG/ML SYRINGE IVP ONE (10:57)
[2017-05-18] MEDS: Furosemide 40 MG TABLET PO SCH ×2 (11:46→17:41)
[2017-05-18] MEDS: Isosorbide MONOnitrate (24 HR) 30 MG TAB.ER.24H PO SCH (11:47)
[2017-05-18] MEDS: Calcium Acetate 667 MG CAPSULE PO SCH ×3 (11:47→17:41)
[2017-05-18] MEDS: Nystatin POWDER 30 GM BOTTLE TP SCH ×2 (11:50→21:10)
[2017-05-18] MEDS: amLODIPine 5 MG TABLET PO SCH (11:50)
[2017-05-19] MEDS: *HR* OxyCODONE/APAP 10/325 TABLET PO PRN ×3 (03:27→20:53)
[2017-05-19 04:41] LABS: Basophils # 0.1 K/mcL (0.0-0.2); Basophils % 0.8 %; Eosinophils # 0.1 K/mcL (0.0-0.6); Eosinophils % 1.9 %; Hematocrit 26.8 % (35.3-44.9); Hemoglobin 7.5 g/dL (11.5-15.4); Immature Granulocytes % 0.5 % (0-4); Lymphocytes # 1.9 K/mcL (0.6-4.6); Lymphocytes % 30.2 %; Mean Corpuscular Hemoglobin 22.7 pg (28.0-33.3); Mean Platelet Volume 9.9 fL (9.4-12.4); Monocytes # 0.9 K/mcL (0.0-1.3); Monocytes % 13.8 %; Neutrophils # 3.3 K/mcL (1.6-8.9); Platelet Count 172 K/mcL (140-400); Red Blood Count 3.31 M/mcL (3.82-4.97); Red Cell Distribution Width 20.1 % (11.5-14.5); Segmented Neutrophils % 52.8 %
[2017-05-19] MEDS ORDERED: *HR* HYDROmorphone (PF) 1 MG/ML SYRINGE IVP ONE (04:44)
[2017-05-19 04:54] LABS: Calcium 9.2 mg/dL (8.6-10.8); Magnesium 1.7 mg/dL (1.6-2.6); Potassium 3.3 mEq/L (3.5-4.5)
[2017-05-19] MEDS: *HR* Heparin 5,000 UNIT/ML VIAL SQ SCH ×2 (06:17→17:30)
[2017-05-19] MEDS: *HR* OxyCODONE ER (12 HR) 20 MG TABLET PO SCH ×2 (06:17→17:30)
[2017-05-19 06:43] LABS: Anisocytosis 1+ (Not Present); Hypochromasia Present (Not Present); Macrocytosis Present (Not Present); Poikilocytosis 1+ (Not Present)
[2017-05-19 06:44] LABS: Platelet Estimate Normal (Normal)
[2017-05-19] MEDS: Tiotropium 18 MCG inhalation IH SCH (07:40)
[2017-05-19] MEDS ORDERED: 0.9 % Sodium Chloride 250 ML IVC PRN (07:42)
[2017-05-19] MEDS ORDERED: *HR* Heparin 10,000 UNIT/10 ML VIAL IV PRN (07:42)
[2017-05-19] MEDS ORDERED: 0.9 % Sodium Chloride 1,000 ML PRIME SCH (07:45)
[2017-05-19] MEDS ORDERED: 0.9 % Sodium Chloride 2,000 ML ONE (08:10)
--- NOTE | 2017-05-19 08:19 | Internal Med Progress Note ---
<Adam Coffey - Last Filed: 05/19/17 13:32> Date of Encounter: 05/19/17 Time of Encounter: 08:16 - Assessment and plan (1) ESRD on hemodialysis Current Visit: Yes Status: Chronic Assessment and plan: IR placed temporary access. Day 4 of 5 of plavix hold. Fistula arteriogram scheduled for . - planned dialysis today (2) CHF (congestive heart failure) Current Visit: Yes Status: Acute Assessment and plan: Stable. No evidence of acute exacerbation. Plan: -Continue home medications. Qualifiers: Congestive heart failure type: diastolic Congestive heart failure chronicity: chronic Qualified Code(s): I50.32 - Chronic diastolic (congestive ) heart failure (3) Diabetes type 2, uncontrolled Current Visit: Yes Status: Chronic Assessment and plan: BS stable 95-170, 180 is an acceptable goal BS while hospitalized. Plan: -Accuchecks ACHS -Continue levemir 15units BID -Continue low-dose SSI - Qualifiers: Diabetes mellitus complication status: with kidney complications Diabetes mellitus complication detail: with chronic kidney disease Diabetes mellitus terminal gauger insulin use: without terminal gauger use Chronic kidney disease stage: on chronic dialysis Qualified Code(s): E11.22 - Type 2 diabetes mellitus with diabetic chronic kidney disease; E11.65 - Type 2 diabetes mellitus with hyperglycemia; N18.6 - End stage renal disease; Z99.2 - Dependence on renal dialysis (4) Anemia of chronic disease Current Visit: Yes Status: Chronic Assessment and plan: Chronic Plan: -Continue home meds (5) Elevated troponin Current Visit: Yes Status: Chronic Assessment and plan: Trop 0.08, 0.07, 0.08. Likely secondary to demand ischemia as CXR showed pulmonar congestion, bilateral infiltrates. (6) Diabetes mellitus with multiple complications Current Visit: Yes Status: Chronic Assessment and plan: continue accuchecks, basal insulin and sliding scale (7) HTN (hypertension) Current Visit: No Status: Chronic Assessment and plan: Blood pressures have been under relatively good control. Plan: -Continue home medications. -Continue to monitor. Qualifiers: Hypertension type: essential hypertension Qualified Code(s): I10 - Essential (primary) hypertension (8) Shoulder pain, acute Current Visit: Yes Status: Acute Assessment and plan: Started upon hospital admission. Worsened after last dialysis session and after temporary port placement. Received dilaudid yesterday which relieved pain , and lidocaine patch has not helped. Patient attempted to negotiate pain medications today for dilaudid. - Shoulder X-ray pending. Qualifiers: Qualified Code(s): M25.511 - Pain in right shoulder - Subjective Interval history: Lynnette is a 62 yo F on Day 6 of admission. She came by ED with a cc of SOB. She was admitted 2/2 pulmonary congestion and bilateral lower lobe infiltrates. She has a temporary temporary access in [facility]. She is waiting for fistual arteriogram on due to 5 days hold of plavix needed. Today day 4 of 5 hold. Patient received dialysis today. she denies chest pain, fever, chills. Patient has RA and ANCA vasculitis and currently is followed by [facility] rheum. she does report continuation of pain of her right shoulder that started during hospitalization and abdominal-groin pain/aching after dialysis. Reports pain in shoulder resolved after dilaudid but had no relief with lidocaine patch. she states shoulder is getting worse. She offered to negoitiate on her pain medications for dilaudid. - Constitutional Vitals: Temp Pulse Resp BP Pulse Ox 98.4 F 82 16 130/67 98 05/19/17 04:26 05/19/17 04:26 05/19/17 04:26 05/19/17 04:26 05/19/17 04:26 General appearance: Present: cooperative, A&O X 3, morbidly obese, answers questions appropriately - Respiratory Respiratory exam: Present: CTAB. Absent: rales, rhonchi, wheezes - Cardiovascular Cardiovascular exam: Present: distant heart sounds - GI/Abdominal GI/Abdominal exam: Present: normal bowel sounds, soft, no peritoneal signs. Absent: distended, tenderness - Expanded Upper Extremities Exam Shoulder exam: Present: tenderness (patient was unable to lift both shoulders. but reports pain and tenderness only in her right shoulder) - Neurological Exam Neurological exam: Present: alert, oriented X3 - Psychiatric Psychiatric exam: Present: normal affect, normal mood Internal Medicine: Result - Labs CBC & Chem 7: 05/19/17 04:07 05/19/17 04:07 Labs: Short CBC 05/19/17 Range/Units 04:07 WBC 6.2 (4.3-11.1) K/mcL Hgb 7.5 L (11.5-15.4) g/dL Hct 26.8 L (35.3-44.9) % Plt Count 172 (140-400) K/mcL Neutrophils # 3.3 (1.6-8.9) K/mcL [facility] 05/19/17 04:07 Sodium 137 Potassium 3.3 L Chloride 100 Carbon Dioxide 32 H BUN 21 H Creatinine 2.13 H Glucose 103 H Calcium 9.2 - ABG Interpretation ABG results: PT/INR, D-dimer PT 12.7 Seconds (9.4-12.1) H 05/17/17 04:42 Consult Discharge Plan - Plan Referrals: Tristen Quintana MD [Primary Care Provider] - (patient will follow up with pcp at [facility]) <Papito Stoll T - Last Filed: 05/19/17 15:18> Date of Encounter: 05/19/17 - Constitutional Vitals: Temp Pulse Resp BP Pulse Ox 97.6 F 92 18 116/65 98 05/19/17 10:20 05/19/17 08:10 05/19/17 10:20 05/19/17 13:20 05/19/17 08:10 Internal Medicine: Result - Labs CBC & Chem 7: 05/19/17 04:07 05/19/17 04:07 Labs: Short CBC 05/19/17 Range/Units 04:07 WBC 6.2 (4.3-11.1) K/mcL Hgb 7.5 L (11.5-15.4) g/dL Hct 26.8 L (35.3-44.9) % Plt Count 172 (140-400) K/mcL Neutrophils # 3.3 (1.6-8.9) K/mcL [facility] 05/19/17 04:07 Sodium 137 Potassium 3.3 L Chloride 100 Carbon Dioxide 32 H BUN 21 H Creatinine 2.13 H Glucose 103 H Calcium 9.2 - ABG Interpretation ABG results: PT/INR, D-dimer PT 12.7 Seconds (9.4-12.1) H 05/17/17 04:42 - Attending Attestation I examined this patient and my medical decision-making was reviewed with the Resident Physician on 05/19/17. I agree with the documented findings, disposition and treatment plan as described except to the extent set forth below. 62 F with ESRD on HD, (current access is via [facility]) She continues to advocate for dilaudid for her shoulder pain, she has a lidocaine patch on, states it helped a little She is otherwise asymptomatic She is awaiting fistulogram/shuntogram for Physical Exam: Alert, Comfortable, not in distress, chest CTAB, Abdomen is benign, LE with chronic venous stasis changes, chronic venous stasis changes on LE, with Stage II R foot decubitus ulcer, Stage I L foot ulcer, dressed, dressing clean and dry Labs and Imaging reviewed-slight drop in Hb to 7.5, potassium 3.3, creatinine is at baseline Shoulder Xray has been ordered and is pending Plan: Continue current care, follow Xray, monitor Hb, renal followin, appreciate input NPO from [place] for procedruee Rest of details as in resident physician's documentation
[2017-05-19] MEDS: Calcium Acetate 667 MG CAPSULE PO SCH ×3 (08:25→15:08)
[2017-05-19] MEDS: Sennosides/Docusate Sodium TABLET PO SCH (08:25)
[2017-05-19] MEDS: Renal Vitamin 1 MG CAPSULE PO SCH (08:25)
[2017-05-19] MEDS: Gabapentin 100 MG CAPSULE PO SCH ×3 (08:25→20:53)
[2017-05-19] MEDS: Nystatin POWDER 30 GM BOTTLE TP SCH ×2 (08:26→20:52)
[2017-05-19] MEDS: Insulin DETEMIR 100 UNIT/ML X5UNITS SQ SCH ×2 (08:29→20:53)
[2017-05-19] MEDS: Insulin LISPRO 300 UNITS/3 ML VIAL SQ SCH ×4 (08:29→20:54)
--- NOTE | 2017-05-19 11:03 | Nephrology Progress Note ---
Date of Encounter: 05/19/17 Time of Encounter: 11:01 - Assessment and Plan (1) ESRD on hemodialysis Current Visit: Yes Status: Chronic Patient seen on dialysis. Volume overload is improving. UF as needed. Awaiting shuntogram . (2) Anemia Current Visit: Yes Status: Chronic Monitor hemoglobin. Transfuse as needed. Qualifiers: Anemia type: due to chronic kidney disease Chronic kidney disease stage: on chronic dialysis Qualified Code(s): N18.6 - End stage renal disease; D63.1 - Anemia in chronic kidney disease; Z99.2 - Dependence on renal dialysis (3) Dyspnea Current Visit: No Status: Acute Dyspnea improving. May be approaching euvolemia. Qualifiers: Dyspnea type: shortness of breath Qualified Code(s): R06.02 - Shortness of breath (4) HTN (hypertension) Current Visit: No Status: Chronic UF and continue antihypertensives as needed. Blood pressure is controlled. Qualifiers: Hypertension type: essential hypertension Qualified Code(s): I10 - Essential (primary) hypertension (5) Morbid (severe) obesity due to excess calories Current Visit: No Status: Chronic Outpatient management. Subjective Principal diagnosis: anemia, ESRD on dialysis, dyspnea Interval history: Patient was seen on dialysis. She was asleep. Objective - Vital Signs Vital signs: Vital Signs Temp Pulse Resp BP Pulse Ox 05/19/17 08:10 98.3 F 92 16 145/76 98 05/19/17 04:26 98.4 F 82 16 130/67 98 05/19/17 00:03 88 18 144/65 98 05/18/17 19:28 98.7 F 94 16 150/73 92 05/18/17 17:32 98.5 F 92 18 142/67 98 05/18/17 12:00 97.5 F L 18 151/77 05/18/17 11:22 98.1 F 94 17 148/77 99 Intake and Output 05/18/17 05/19/17 05/19/17 23:59 07:59 15:59 Other: Meal Dinner Percent of Meal Consumed 100% Weight 119.5 kg Blood Glucose* 174 103 Patient Weight 05/19/17 23:59 Weight 119.5 kg - General Appearance General appearance: Present: well-developed, well-nourished, obese EENT: Present: ATNC Neck: Present: supple Respiratory: Present: clear (anteriorly) Cardiology: Present: edema (improving), regular rate Integumentary: Present: warm and dry - Lab 05/19/17 04:07 05/19/17 04:07 Most recent lab results Calcium 9.2 mg/dL (8.6-10.8) 05/19/17 04:07 Magnesium 1.7 mg/dL (1.6-2.6) 05/19/17 04:07 Consult Discharge Plan - Plan Referrals: Tristen Quintana MD [Primary Care Provider] - (patient will follow up with pcp at [facility])
[2017-05-19] MEDS: Furosemide 40 MG TABLET PO SCH ×2 (12:17→15:07)
[2017-05-19] MEDS: amLODIPine 5 MG TABLET PO SCH ×2 (12:18→15:06)
[2017-05-19] MEDS: Isosorbide MONOnitrate (24 HR) 30 MG TAB.ER.24H PO SCH ×2 (12:18→15:07)
[2017-05-19] MEDS: metOLazone 2.5 MG TABLET PO SCH (22:54)
[2017-05-20 03:33] LABS: Basophils % 0.8 %; Hemoglobin 7.7 g/dL (11.5-15.4)
[2017-05-20 03:35] LABS: Basophils # 0.1 K/mcL (0.0-0.2); Eosinophils # 0.2 K/mcL (0.0-0.6); Eosinophils % 2.5 %; Hematocrit 27.2 % (35.3-44.9); Immature Granulocytes % 0.7 % (0-4); Lymphocytes # 1.8 K/mcL (0.6-4.6); Lymphocytes % 29.9 %; Mean Corpuscular HGB Conc 28.3 g/dL (31.6-35.5); Mean Corpuscular Hemoglobin 22.9 pg (28.0-33.3); Mean Platelet Volume 9.7 fL (9.4-12.4); Monocytes # 0.7 K/mcL (0.0-1.3); Monocytes % 12.4 %; Neutrophils # 3.2 K/mcL (1.6-8.9); Platelet Count 184 K/mcL (140-400); Red Blood Count 3.36 M/mcL (3.82-4.97); Red Cell Distribution Width 19.8 % (11.5-14.5); Segmented Neutrophils % 53.7 %
[2017-05-20 04:17] LABS: Anisocytosis 2+ (Not Present); Hypochromasia Present (Not Present); Platelet Estimate Normal (Normal)
[2017-05-20 04:17] LABS: Magnesium 1.7 mg/dL (1.6-2.6); Potassium 3.3 mEq/L (3.5-4.5)
[2017-05-20] MEDS: *HR* OxyCODONE ER (12 HR) 20 MG TABLET PO SCH ×2 (05:55→17:04)
[2017-05-20] MEDS: *HR* Heparin 5,000 UNIT/ML VIAL SQ SCH ×2 (05:55→17:04)
[2017-05-20] MEDS: Insulin LISPRO 300 UNITS/3 ML VIAL SQ SCH ×4 (07:39→21:09)
[2017-05-20] MEDS: Calcium Acetate 667 MG CAPSULE PO SCH ×3 (07:41→17:04)
[2017-05-20] MEDS: Tiotropium 18 MCG inhalation IH SCH (07:45)
[2017-05-20] MEDS: Furosemide 40 MG TABLET PO SCH ×2 (08:36→17:04)
[2017-05-20] MEDS: Renal Vitamin 1 MG CAPSULE PO SCH (08:36)
[2017-05-20] MEDS: Sennosides/Docusate Sodium TABLET PO SCH (08:37)
[2017-05-20] MEDS: Gabapentin 100 MG CAPSULE PO SCH ×3 (08:37→21:10)
[2017-05-20] MEDS: amLODIPine 5 MG TABLET PO SCH (08:37)
[2017-05-20] MEDS: Isosorbide MONOnitrate (24 HR) 30 MG TAB.ER.24H PO SCH (08:37)
[2017-05-20] MEDS: Insulin DETEMIR 100 UNIT/ML X5UNITS SQ SCH ×2 (08:38→21:10)
[2017-05-20] MEDS: Nystatin POWDER 30 GM BOTTLE TP SCH ×2 (08:39→21:10)
--- NOTE | 2017-05-20 08:40 | Internal Med Progress Note ---
<Adam Coffey - Last Filed: 05/20/17 13:14> Date of Encounter: 05/20/17 Time of Encounter: 08:39 - Assessment and plan (1) ESRD on hemodialysis Current Visit: Yes Status: Chronic Assessment and plan: IR placed temporary access. Day 5 of 5 of plavix hold. will re-evaluate post- procedure. no complications from dialysis yesterday. - Perma cath placement today. - HD today - Outpatient fistula evaluation scheduled with regular cariovascular surgeon (2) CHF (congestive heart failure) Current Visit: Yes Status: Acute Assessment and plan: Stable. No evidence of acute exacerbation. Plan: -Continue home medications. Qualifiers: Congestive heart failure type: diastolic Congestive heart failure chronicity: chronic Qualified Code(s): I50.32 - Chronic diastolic (congestive ) heart failure (3) Diabetes type 2, uncontrolled Current Visit: Yes Status: Chronic Assessment and plan: BS stable 95-170, 180 is an acceptable goal BS while hospitalized. Plan: -Accuchecks ACHS -Continue levemir 15units BID -Continue low-dose SSI - Qualifiers: Diabetes mellitus complication status: with kidney complications Diabetes mellitus complication detail: with chronic kidney disease Diabetes mellitus senior care insulin use: without senior care use Chronic kidney disease stage: on chronic dialysis Qualified Code(s): E11.22 - Type 2 diabetes mellitus with diabetic chronic kidney disease; E11.65 - Type 2 diabetes mellitus with hyperglycemia; N18.6 - End stage renal disease; Z99.2 - Dependence on renal dialysis (4) Anemia of chronic disease Current Visit: Yes Status: Chronic Assessment and plan: Chronic anemia. Baseline hgb 7.5-8.5 Plan: -Continue home meds (5) Elevated troponin Current Visit: Yes Status: Chronic Assessment and plan: Trop 0.08, 0.07, 0.08. Likely secondary to demand ischemia as CXR showed pulmonar congestion, bilateral infiltrates. (6) Diabetes mellitus with multiple complications Current Visit: Yes Status: Chronic Assessment and plan: continue accuchecks, basal insulin and sliding scale (7) HTN (hypertension) Current Visit: No Status: Chronic Assessment and plan: Blood pressures have been under relatively good control. Plan: -Continue home medications. -Continue to monitor. Qualifiers: Hypertension type: essential hypertension Qualified Code(s): I10 - Essential (primary) hypertension (8) Shoulder pain, acute Current Visit: Yes Status: Acute Assessment and plan: Started upon hospital admission. Worsened after last dialysis session and after temporary port placement. Received dilaudid yesterday which relieved pain , and lidocaine patch has not helped. Patient attempted to negotiate pain medications today for dilaudid. - should X-ray: moderate degenerative changes in glenohumeral + Acromioclavicular joints - due to narco + oxycontin home meds continue, no added opioids. consider should steroid injection. Qualifiers: Qualified Code(s): M25.519 - Pain in unspecified shoulder - Subjective Interval history: Lynnette is a 62 yo F on Day 7 of admission. She came by ED with a cc of SOB. She was admitted 2/2 pulmonary congestion and bilateral lower lobe infiltrates. She has a temporary temporary access in [facility]. She is waiting for fistual arteriogram on due to 5 days hold of plavix needed. Today day 5 of 5 hold. Patient received dialysis yesterday. she denies chest pain, fever, chills. Patient has RA and ANCA vasculitis and currently is followed by [facility] rheum. she does report continuation of pain of her right shoulder that started during hospitalization and abdominal-groin pain/aching after dialysis. Reports pain in shoulder resolved after dilaudid but had no relief with lidocaine patch. she states shoulder is getting worse. She offered to negoitiate on her pain medications for dilaudid. - Constitutional Vitals: Temp Pulse Resp BP Pulse Ox 98.6 F 84 16 113/61 99 05/20/17 06:50 05/20/17 06:50 05/20/17 06:50 05/20/17 06:50 05/20/17 06:50 General appearance: Present: cooperative, A&O X 3, morbidly obese, answers questions appropriately - Head Head exam: Present: atraumatic, normocephalic - Respiratory Respiratory exam: Present: CTAB. Absent: accessory muscle use, rales, rhonchi, wheezes - Cardiovascular Cardiovascular exam: Present: RRR, +S1, +S2. Absent: diastolic murmur, gallop, rubs, systolic murmur - GI/Abdominal GI/Abdominal exam: Present: normal bowel sounds, soft, no peritoneal signs. Absent: distended, tenderness - Expanded Upper Extremities Exam Shoulder exam: Present: tenderness Internal Medicine: Result - Labs CBC & Chem 7: 05/20/17 03:21 05/20/17 03:19 Labs: Short CBC 05/20/17 Range/Units 03:21 WBC 5.9 (4.3-11.1) K/mcL Hgb 7.7 L (11.5-15.4) g/dL Hct 27.2 L (35.3-44.9) % Plt Count 184 (140-400) K/mcL Neutrophils # 3.2 (1.6-8.9) K/mcL BMP 05/20/17 03:19 Sodium 138 Potassium 3.3 L Chloride 100 Carbon Dioxide 31 H BUN 12 Creatinine 1.80 H Glucose 148 H Calcium 9.0 - ABG Interpretation ABG results: PT/INR, D-dimer PT 12.7 Seconds (9.4-12.1) H 05/17/17 04:42 - Impressions Impressions Shoulder X-Ray 05/19/17 08:28 IMPRESSION: Moderate degenerative changes in the glenohumeral and acromioclavicular joints. No acute osseous abnormality. D/ / Antonia Fountain MD / Antonia Fountain MD Interpreting Provider: Antonia Fountain MD Consult Discharge Plan - Plan Additional Instructions: Setup follow up appointment with Dr. Unger, Orthopedics, for right shoulder evaluation. Appointment setup with patient's regular Cardiovascular surgeon to evaluate fistula. Referrals: Scot Unger MD [Partnered Physician] - Tristen Quintana MD [Primary Care Provider] - (patient will follow up with pcp at [facility]) <DodieSolitarioPapito T - Last Filed: 05/20/17 16:38> Date of Encounter: 05/20/17 - Constitutional Vitals: Temp Pulse Resp BP Pulse Ox 98.0 F 84 25 158/80 100 05/20/17 11:46 05/20/17 16:01 05/20/17 16:01 05/20/17 16:01 05/20/17 16:01 Internal Medicine: Result - Labs CBC & Chem 7: 05/20/17 03:21 05/20/17 03:19 Labs: Short CBC 05/20/17 Range/Units 03:21 WBC 5.9 (4.3-11.1) K/mcL Hgb 7.7 L (11.5-15.4) g/dL Hct 27.2 L (35.3-44.9) % Plt Count 184 (140-400) K/mcL Neutrophils # 3.2 (1.6-8.9) K/mcL BMP 05/20/17 03:19 Sodium 138 Potassium 3.3 L Chloride 100 Carbon Dioxide 31 H BUN 12 Creatinine 1.80 H Glucose 148 H Calcium 9.0 - ABG Interpretation ABG results: PT/INR, D-dimer PT 12.7 Seconds (9.4-12.1) H 05/17/17 04:42 - Attending Attestation I examined this patient and my medical decision-making was reviewed with the Resident Physician on 05/20/17. I agree with the documented findings, disposition and treatment plan as described except to the extent set forth below. 62 F with ESRD on HD, (current access is via [facility]) She denies new complains today Her fistulogram was cancelled due to some communication problems Her shoulder Xray shows moderate DJD She is to get a permacath today Physical Exam: Alert, Comfortable, not in distress, chest CTAB, Abdomen is benign, LE with chronic venous stasis changes, chronic venous stasis changes on LE, with Stage II R foot decubitus ulcer, Stage I L foot ulcer, dressed, dressing clean and dry Labs and Imaging reviewed-Stable Plan: Continue current care, permaccath today, HD . Anticipate d/c tomorrow Rest of details as in resident physician's documentation
--- NOTE | 2017-05-20 09:45 | Nephrology Progress Note ---
Date of Encounter: 05/20/17 Time of Encounter: 09:43 - Assessment and Plan (1) ESRD on hemodialysis Current Visit: Yes Status: Chronic Going for shuntogram this morning; will most likely proceed with HD this afternoon Plan for regular HD treatment tomorrow Continue renal diet and fluid restriction Avoid nephrotoxins if possible (2) Problem with dialysis access Current Visit: Yes Status: Acute Shuntogram today Qualifiers: Encounter type: subsequent encounter Qualified Code(s): T82.898D - Other specified complication of vascular prosthetic devices, implants and grafts, subsequent encounter (3) Anemia Current Visit: Yes Status: Chronic Hgb 7.7 Goal 10-11 Transfuse per parameters Qualifiers: Anemia type: due to chronic kidney disease Chronic kidney disease stage: on chronic dialysis Qualified Code(s): N18.6 - End stage renal disease; D63.1 - Anemia in chronic kidney disease; Z99.2 - Dependence on renal dialysis (4) Dyspnea Current Visit: No Status: Acute Improved with dialysis Qualifiers: Dyspnea type: shortness of breath Qualified Code(s): R06.02 - Shortness of breath Subjective Principal diagnosis: anemia, ESRD on dialysis, dyspnea Interval history: Patient seen and examined, sitting up in chair. Objective - Vital Signs Vital signs: Vital Signs Temp Pulse Resp BP Pulse Ox 05/20/17 08:44 99 05/20/17 06:50 98.6 F 84 16 113/61 99 05/20/17 05:21 98.6 F 82 16 111/67 99 05/19/17 23:17 97.8 F 85 16 132/63 96 05/19/17 18:37 98.2 F 88 16 146/70 97 05/19/17 16:40 98.3 F 84 20 147/72 98 05/19/17 16:00 97.9 F 20 141/65 05/19/17 14:20 124/63 05/19/17 14:05 119/55 05/19/17 13:50 131/53 05/19/17 13:35 125/59 05/19/17 13:20 116/65 05/19/17 13:05 132/59 05/19/17 12:50 133/59 05/19/17 12:35 152/58 05/19/17 12:20 146/77 05/19/17 12:05 127/64 05/19/17 11:50 120/54 05/19/17 11:35 120/64 05/19/17 11:20 131/64 05/19/17 11:05 132/65 05/19/17 10:50 145/67 05/19/17 10:35 134/66 05/19/17 10:20 97.6 F 18 135/63 Intake and Output 05/19/17 05/20/17 05/20/17 23:59 07:59 15:59 Intake Total 240 / 240 Output Total 5950 / 5950 Balance -5710 / -5710 Intake: Oral 240 / 240 Output: Urine 0 / 0 Total Dialysis (HD) 5600 / 5600 Output Catheter 350 / 350 Other: Meal NPO Weight 113.9 kg Blood Glucose* 144 124 Hemodialysis Net Fluid 5000 Removed (mL) - General Appearance General appearance: Present: obese EENT: Present: ATNC, mucous membranes moist, hearing intact, vision intact Neck: Present: supple Respiratory: Present: clear Cardiology: Present: edema, normal S1, normal S2 Dialysis Vascular Access: Venous Catheter Gastrointestinal: Present: no tenderness, no guarding, obese Integumentary: Present: warm and dry Neurologic: Present: alert and oriented x3 Psychiatric: Present: cooperative - Lab 05/20/17 03:21 05/20/17 03:19 Most recent lab results Calcium 9.0 mg/dL (8.6-10.8) 05/20/17 03:19 Magnesium 1.7 mg/dL (1.6-2.6) 05/20/17 03:19 Consult Discharge Plan - Plan Referrals: Tristen Quintana MD [Primary Care Provider] - (patient will follow up with pcp at [facility])
[2017-05-20] MEDS: *HR* OxyCODONE/APAP 10/325 TABLET PO PRN ×2 (11:15→21:10)
[2017-05-20] MEDS ORDERED: Heparin 1,000 UNITS/500 mL NS 500 ML ONE (12:54)
--- NOTE | 2017-05-20 13:03 | Discharge Summary ---
<ErlindaAdam - Last Filed: 05/21/17 07:59> Date of Encounter: 05/21/17 Time of Encounter: 12:57 - Discharge Diagnosis (1) ESRD on hemodialysis Priority: Primary Status: Chronic (2) CHF (congestive heart failure) Priority: Secondary Status: Acute Qualifiers: Congestive heart failure type: diastolic Congestive heart failure chronicity: chronic Qualified Code(s): I50.32 - Chronic diastolic (congestive ) heart failure (3) Diabetes type 2, uncontrolled Priority: Secondary Status: Chronic Qualifiers: Diabetes mellitus complication status: with kidney complications Diabetes mellitus complication detail: with chronic kidney disease Diabetes mellitus intermediate teacher insulin use: without chcf use Chronic kidney disease stage: on chronic dialysis Qualified Code(s): E11.22 - Type 2 diabetes mellitus with diabetic chronic kidney disease; E11.65 - Type 2 diabetes mellitus with hyperglycemia; N18.6 - End stage renal disease; Z99.2 - Dependence on renal dialysis (4) Anemia of chronic disease Priority: Secondary Status: Chronic (5) Elevated troponin Priority: Secondary Status: Chronic (6) Diabetes mellitus with multiple complications Priority: Secondary Status: Chronic (7) HTN (hypertension) Priority: Secondary Status: Chronic Qualifiers: Hypertension type: essential hypertension Qualified Code(s): I10 - Essential (primary) hypertension (8) Shoulder pain, acute Priority: Secondary Status: Acute Qualifiers: Qualified Code(s): M25.519 - Pain in unspecified shoulder - Discharge Medications Prescriptions: Oxycodone HCl/Acetaminophen [Percocet 10-325 mg Tablet] 10 mg PO Q6HR #40 tablet OxyCODONE ER (12 HR) [OxyCONTIN] 20 mg PO Q12HR #20 tab.er.12h Home Medications: Clopidogrel [Plavix] 75 mg PO DAILY 05/11/15 [History] Omeprazole [PriLOSEC] 20 mg PO BID 05/11/15 [History] Rosuvastatin [Crestor] 40 mg PO HS 05/11/15 [History] Sevelamer [Renvela] 800 mg PO TIDWM 05/11/15 [History] Colestipol HCl [Colestid] 1 gm PO BID 06/12/15 [History] Carvedilol 12.5 mg PO BID 10/28/15 [History] amLODIPine [Norvasc] 5 mg PO DAILY 06/09/16 [History] Gabapentin [Neurontin] 200 mg PO TID 30 Days 06/18/16 [Rx] Calcium Acetate [Phos-LO] 667 mg PO TIDWM 09/06/16 [History] Furosemide [Lasix] 80 mg PO BID 09/06/16 [History] metOLazone [Zaroxolyn] 2.5 mg PO MOWEFR 09/06/16 [History] Albuterol Sulfate [Ventolin Hfa] 2 puff IH Q4H PRN 12/29/16 [History] Tiotropium [Spiriva] 18 mcg IH DAILY 01/12/17 [History] GuaiFENesin/Dextromethorphan [Robitussin/Dm] 10 ml PO Q6HR udc 01/22/17 [Rx] Insulin LISPRO [HumaLOG] 0 - 16 units SQ 0800,1100,1600 02/05/17 [History] Sennosides/Docusate Sodium [Senna Plus] 1 tab PO DAILY 03/26/17 [History] OxyCODONE ER (12 HR) [OxyCONTIN] 20 mg PO Q12HR #14 tab.er.12h 03/30/17 [Rx] Metoclopramide [Reglan] 10 mg PO Q6HR 2 Days 04/12/17 [Rx] Ondansetron ODT [Zofran ODT] 4 mg SL Q6HR #10 tab.rapdis 04/12/17 [Rx] Folic Acid/Vit Bcomp,C [Renal Vitamin Tablet] 0.8 mg PO DAILY 04/15/17 [History] Oxycodone HCl/Acetaminophen [Percocet 10-325 mg Tablet] 1 tab PO Q6H PRN [History] Isosorbide MONOnitrate (24 HR) [Imdur] 30 mg PO DAILY #30 tab.er.24h 04/21/17 [ Rx] Darbepoetin [Aranesp] 40 mcg SQ FR 05/13/17 [History] Insulin ASPART [NovoLOG] 15 unit SQ TIDAC 05/13/17 [History] Insulin Glargine,Hum.rec.anlog [Lantus Solostar] 50 unit SQ BID 05/13/17 [ History] Insulin LISPRO [HumaLOG] 0 - 8 unit SQ HS 05/13/17 [History] OxyCODONE ER (12 HR) [OxyCONTIN] 20 mg PO Q12HR #20 tab.er.12h 05/21/17 [Rx] Oxycodone HCl/Acetaminophen [Percocet 10-325 mg Tablet] 10 mg PO Q6HR #40 tablet 05/21/17 [Rx] Allergies/Adverse Reactions: Allergies No Known Allergies Allergy (Verified 01/12/17 11:29) Procedures/tests Complete & Pending: Procedures Performed prior 72 hours Category Date Time Status IR cvc insrt tunnel wo prt/director property [IR] Routine IR 05/20/17 Ordered IR us guide needle place [IR] Routine IR 05/20/17 Ordered Date of admission: 05/13/17 20:47 Primary care physician: Tristen Quintana MD Consults: 05/14/17 09:15 Consult to Dialysis [CONS] ONCE 05/14/17 10:13 Consult to Architect [CONS] Routine Reason for SW Consult: from ECF 05/15/17 09:15 Consult to Dialysis [CONS] ONCE 05/17/17 05:45 Consult to Dialysis [CONS] ONCE 05/17/17 13:35 Consult to Occupational Therapy [CONS] Routine Comment: Evaluate, develop and implement POC Reason for Consult: ecf rtn 05/18/17 07:45 Consult to Dialysis [CONS] ONCE 05/19/17 07:45 Consult to Dialysis [CONS] ONCE 05/20/17 09:35 Consult to Interventional Radiology [CONS] Stat Consulting Provider: Radiology Interventional Cols Reason for Consult: fistulogram, has been off Plavix for 5 days Call Completed: Yes 05/20/17 10:59 Consult to Interventional Radiology [CONS] Stat Consulting Provider: Radiology Interventional Cols Reason for Consult: Please convert temp HD cath to a tunneled HD cath Call Completed: Yes - Patient Status Disposition: Transfer SNF Condition: Fair Overall status at discharge: patient is back to baseline - Discharge Instructions Follow Up With: Scot Unger MD [Partnered Physician] - Tristen Quintana MD [Primary Care Provider] - (patient will follow up with pcp at [facility]) Additional Instructions: Follow up appointment ON 05/24/17 arrival at [address] Saurabh Oconnor, CV surgeon at [facility]. Setup follow up appointment with Dr. Unger, Orthopedics, for right shoulder evaluation.. - Diet and Activity Diet: low salt diet (renal diet) Hospital course: Ms. Riley is a 62 year old female with a PMH of arthritis, asthma, COPD, atrial fibrillation, CHF, HTN, PAD, coronary artery disease, CVA, DVT, CKD diabetes, dialysis, fibromyalgia, GERD, GI bleed, hyperlipidemia, kidney stones myocardial infarction, osteoporosis, who presented to [facility] on 05-13-17 with SOB which started earlier that morning. She has a h/o acute exacerbations of CHF, and is a CDK patient requiring hemodialysis. Her last HD appointment was to which she was informed of issues with her shunt. She was advised to come to the ED for a surgical evaluation for a shunt replacement. Nephrology consulted while in the ED with order to diurese. Elevated troponins noted and she was being admited for further monitoring and workup. A temporary RIJ was placed for HD access. She received HD MWF. Patients fistula was evaluated with fistulogram and it was determined that the patient would need cardiovascular involvement to fix her fistula. Her plavix was held for 5 days in anticipation of surgery. Her previous cardiovascular surgeon was contacted and it was determined it would be best if the patient had her fistula worked on by the surgeon who originally placed the fistula. On 05/19/17 a permacatheter was placed for HD access. Patient has follow up appointment for Fistula repair with Dr. Saurabh Oconnor of [facility] on 05/24/17 at 8 am. During her hospitalization she developed right shoulder pain that persisted and progressed. She was given 2 doses of 0.5 mg dilaudid. Patient received a shoulder X-ray which showed moderate joint degeneration. No more dilaudid was given to patient due to concerns of her home oxycotin and percocet. - Time Spent with Patient Total time spent providing and/or coordinating discharge services: - Constitutional Vitals: Temp Pulse Resp BP Pulse Ox 98.0 F 83 16 119/66 96 05/20/17 11:46 05/20/17 11:46 05/20/17 11:46 05/20/17 11:46 05/20/17 11:46 General appearance: Present: cooperative, A&O X 3, morbidly obese, answers questions appropriately - Respiratory Respiratory exam: Present: CTAB. Absent: accessory muscle use, rales, rhonchi, wheezes - Cardiovascular Cardiovascular exam: Present: RRR, +S1, +S2. Absent: diastolic murmur, gallop, rubs, systolic murmur - GI/Abdominal GI/Abdominal exam: Present: normal bowel sounds, soft, no peritoneal signs. Absent: distended, tenderness - Neurological Exam Neurological exam: Present: oriented X3, no focal deficits - Psychiatric Psychiatric exam: Present: normal affect, normal mood <Papito Stoll - Last Filed: 05/21/17 14:42> Date of Encounter: 05/21/17 Procedures/tests Complete & Pending: Procedures Performed prior 72 hours Category Date Time Status IR cvc insrt tunnel wo prt/director property [IR] Routine IR 05/20/17 Completed IR us guide needle place [IR] Routine IR 05/20/17 Completed Date of admission: 05/13/17 20:47 Primary care physician: Tristen Quintana MD Consults: 05/14/17 09:15 Consult to Dialysis [CONS] ONCE 05/14/17 10:13 Consult to Architect [CONS] Routine Reason for SW Consult: from ECF 05/15/17 09:15 Consult to Dialysis [CONS] ONCE 05/17/17 05:45 Consult to Dialysis [CONS] ONCE 05/17/17 13:35 Consult to Occupational Therapy [CONS] Routine Comment: Evaluate, develop and implement POC Reason for Consult: ecf rtn 05/18/17 07:45 Consult to Dialysis [CONS] ONCE 05/19/17 07:45 Consult to Dialysis [CONS] ONCE 05/20/17 09:35 Consult to Interventional Radiology [CONS] Stat Consulting Provider: Radiology Interventional Cols Reason for Consult: fistulogram, has been off Plavix for 5 days Call Completed: Yes 05/20/17 10:59 Consult to Interventional Radiology [CONS] Stat Consulting Provider: Radiology Interventional Cols Reason for Consult: Please convert temp HD cath to a tunneled HD cath Call Completed: Yes 05/21/17 08:45 Consult to Dialysis [CONS] ONCE 05/22/17 08:45 Consult to Dialysis [CONS] ONCE Hospital course: Ms. Riley is a 62 year old female - Time Spent with Patient Total time spent providing and/or coordinating discharge services: - Constitutional Vitals: Temp Pulse Resp BP Pulse Ox 97.8 F 83 19 123/71 97 05/21/17 13:20 05/21/17 13:20 05/21/17 13:20 05/21/17 13:20 05/21/17 13:20 - Attending Attestation I examined this patient and my medical decision-making was reviewed with the Resident Physician on 05/21/17. I agree with the documented findings, disposition and treatment plan as described except to the extent set forth below. Seen and evaluated during hemodialysis 62 F with ESRD on HD, DM, ACD, HTN, Obesity, Decubitus ulcers, CHFpEF, resident of SNF She was admitted for management of fluid overload, acute on chronic resp failure She has made dignificant improvement No complains today Her tunneled cathter was placed 05/20 and used for HD access today Physical Exam: Alert, Comfortable, not in distress, chest CTAB, Abdomen is benign, LE with chronic venous stasis changes, chronic venous stasis changes on LE, with Stage II R foot decubitus ulcer, Stage I L foot ulcer, dressed, dressing clean and dry She is clinically stable to be discharged back to SNF. Rest of details as in resident physician's documentation
[2017-05-20] MEDS ORDERED: ceFAZolin 2,000 MG in D5% in Water 100 ML IVPB ONE (14:43)
[2017-05-20] MEDS ORDERED: 0.9 % Sodium Chloride 500 ML ONE (15:30)
[2017-05-20] MEDS: *HR* Midazolam HCl 2 MG/2 ML VIAL IVP PRN ×2 (15:53→15:57)
[2017-05-20] MEDS: *HR* FentaNYL (PF) 100 MCG/2 ML VIAL IVP PRN ×2 (15:53→15:57)
[2017-05-20] MEDS ORDERED: *HR* Heparin 5,000 UNIT/ML VIAL ONE (16:07)
--- NOTE | 2017-05-20 16:09 | Pre-Sedation Evaluation ---
Pre-sedation evaluation - Pre-sedation checklist Date of procedure: 05/20/17 Procedure: permcath placement Recent Vitals: Last Vital Signs Temp 98.0 F 05/20/17 11:46 Pulse 84 05/20/17 16:01 Resp 25 05/20/17 16:01 BP 158/80 05/20/17 16:01 Pulse Ox 100 05/20/17 16:01 H&P (including ROS) documented in medical record: Yes Previous reaction to sedatives/anesthetics: No Dietary Status: NPO after Midnight Airway Assessment: Patient can open mouth completely, TMJ function normal, Micrognathia (under-bite, receding chin) absent, Neck with adequate range of motion Dentition: No loose teeth or bridges, dentures removed ASA Classification *see protocol: CLASS II-Mild systemic disease Plan of Care: Pt appropriate candidate for procedure/moderate/conscious sedation , Risks/benefits of procedure/sedation discussed w/ patient/family, If not NPO; Risk of intake outweiged by necessity to perform procedure
--- NOTE | 2017-05-20 16:10 | IR Procedure Note ---
Date of procedure: 05/20/17 Consent Obtained: Verbal consent, Written consent Timeout: Correct patient and procedure verified, Correct site verified, Time out performed, Skin prep completed Local anesthetic: Lidocaine 1% Indications: ESRD Procedure Performed: permcath placement Site/Technique: RIJ Estimated blood loss (cc): 2 Complications: None; Tolerated procedure well Post Procedure Treatment Plan: bedrest x 1 hour; catheter ok to use
[2017-05-21] MEDS: *HR* OxyCODONE/APAP 10/325 TABLET PO PRN ×2 (03:12→08:54)
[2017-05-21] MEDS: *HR* Heparin 5,000 UNIT/ML VIAL SQ SCH ×2 (05:42→15:58)
[2017-05-21] MEDS: *HR* OxyCODONE ER (12 HR) 20 MG TABLET PO SCH ×2 (05:42→15:57)
--- NOTE | 2017-05-21 07:55 | Physician Discharge Referral ---
ExtendedCare Referral Info Transfer To: Signature Provider in Charge after Transfer: PCP Institutional Level of Care: Skilled - Diagnosis (1) ESRD on hemodialysis Priority: Primary (Patient will have a follow up evaluation by her CV surgeon) Status: Chronic (2) CHF (congestive heart failure) Priority: Secondary Status: Acute (3) Diabetes type 2, uncontrolled Priority: Secondary Status: Chronic (4) Anemia of chronic disease Priority: Secondary Status: Chronic (5) Elevated troponin Priority: Secondary Status: Chronic (6) Diabetes mellitus with multiple complications Priority: Secondary Status: Chronic (7) HTN (hypertension) Priority: Secondary Status: Chronic (8) Shoulder pain, acute Priority: Secondary Status: Acute Prognosis: Fair Aware of Diagnosis: Patient Aware of Prognosis: Patient - Transfer Medications Home Medications: Clopidogrel [Plavix] 75 mg PO DAILY 05/11/15 [History] Omeprazole [PriLOSEC] 20 mg PO BID 05/11/15 [History] Rosuvastatin [Crestor] 40 mg PO HS 05/11/15 [History] Sevelamer [Renvela] 800 mg PO TIDWM 05/11/15 [History] Colestipol HCl [Colestid] 1 gm PO BID 06/12/15 [History] Carvedilol 12.5 mg PO BID 10/28/15 [History] amLODIPine [Norvasc] 5 mg PO DAILY 06/09/16 [History] Gabapentin [Neurontin] 200 mg PO TID 30 Days 06/18/16 [Rx] Calcium Acetate [Phos-LO] 667 mg PO TIDWM 09/06/16 [History] Furosemide [Lasix] 80 mg PO BID 09/06/16 [History] metOLazone [Zaroxolyn] 2.5 mg PO MOWEFR 09/06/16 [History] Albuterol Sulfate [Ventolin Hfa] 2 puff IH Q4H PRN 12/29/16 [History] Tiotropium [Spiriva] 18 mcg IH DAILY 01/12/17 [History] GuaiFENesin/Dextromethorphan [Robitussin/Dm] 10 ml PO Q6HR udc 01/22/17 [Rx] Insulin LISPRO [HumaLOG] 0 - 16 units SQ 0800,1100,1600 02/05/17 [History] Sennosides/Docusate Sodium [Senna Plus] 1 tab PO DAILY 03/26/17 [History] OxyCODONE ER (12 HR) [OxyCONTIN] 20 mg PO Q12HR #14 tab.er.12h 03/30/17 [Rx] Metoclopramide [Reglan] 10 mg PO Q6HR 2 Days 04/12/17 [Rx] Ondansetron ODT [Zofran ODT] 4 mg SL Q6HR #10 tab.rapdis 04/12/17 [Rx] Folic Acid/Vit Bcomp,C [Renal Vitamin Tablet] 0.8 mg PO DAILY 04/15/17 [History] Oxycodone HCl/Acetaminophen [Percocet 10-325 mg Tablet] 1 tab PO Q6H PRN [History] Isosorbide MONOnitrate (24 HR) [Imdur] 30 mg PO DAILY #30 tab.er.24h 04/21/17 [ Rx] Darbepoetin [Aranesp] 40 mcg SQ FR 05/13/17 [History] Insulin ASPART [NovoLOG] 15 unit SQ TIDAC 05/13/17 [History] Insulin Glargine,Hum.rec.anlog [Lantus Solostar] 50 unit SQ BID 05/13/17 [ History] Insulin LISPRO [HumaLOG] 0 - 8 unit SQ HS 05/13/17 [History] Allergies/Adverse Reactions: Allergies No Known Allergies Allergy (Verified 01/12/17 11:29) - Respiratory Orders Smoking Cessation: Smoking cessation has been advised. For more information, call the [place] Tobacco Quit Line at 2-665-GRAT-NOW. - Advance Directives Code Status: DNR-Arrest/Don't Intubate - Mobility Orders Chair - Rehabiliation Orders Rehab Potential: Poor Rehab Orders: Evaluation for Physical Therapy, Evaluation for Occupational Therapy - Diet Orders Renal CERTIFICATION: I certify that the transfer of the above named patient to an Extended Care Facility is necessary for the continuing treatment of the diagnosis listed. The above information is true and accurate reflection of patient's current condition. Confidential - Redisclosure prohibited without a patient's written consent.
[2017-05-21] MEDS ORDERED: 0.9 % Sodium Chloride 1,000 ML PRIME SCH (08:45)
[2017-05-21] MEDS ORDERED: 0.9 % Sodium Chloride 250 ML IVC PRN (08:45)
[2017-05-21] MEDS ORDERED: *HR* Heparin 10,000 UNIT/10 ML VIAL IV PRN (08:45)
[2017-05-21] MEDS: Isosorbide MONOnitrate (24 HR) 30 MG TAB.ER.24H PO SCH (08:48)
[2017-05-21] MEDS: Renal Vitamin 1 MG CAPSULE PO SCH (08:48)
[2017-05-21] MEDS: Gabapentin 100 MG CAPSULE PO SCH ×2 (08:48→14:08)
[2017-05-21] MEDS: Sennosides/Docusate Sodium TABLET PO SCH (08:48)
[2017-05-21] MEDS: Calcium Acetate 667 MG CAPSULE PO SCH ×3 (08:49→15:58)
[2017-05-21] MEDS: Furosemide 40 MG TABLET PO SCH ×2 (08:49→15:57)
[2017-05-21] MEDS: Insulin LISPRO 300 UNITS/3 ML VIAL SQ SCH ×3 (08:53→16:54)
[2017-05-21] MEDS: Nystatin POWDER 30 GM BOTTLE TP SCH (08:55)
[2017-05-21] MEDS: Insulin DETEMIR 100 UNIT/ML X5UNITS SQ SCH (08:55)
[2017-05-21] MEDS: amLODIPine 5 MG TABLET PO SCH (08:55)
[2017-05-21] MEDS: Tiotropium 18 MCG inhalation IH SCH (10:13)
[2017-05-21 11:30] LABS: Potassium 3.5 mEq/L (3.5-4.5)
[2017-05-21] MEDS ORDERED: 0.9 % Sodium Chloride 1,000 ML ONE (14:37)
[2017-05-21 14:52] VITALS: BP 126/59
--- NOTE | 2017-05-21 16:05 | Nephrology Progress Note ---
Date of Encounter: 05/21/17 Time of Encounter: 12:00 - Assessment and Plan (1) ESRD on hemodialysis Current Visit: Yes Status: Chronic Continue HD with UF as tolerated lytes stable resume outpatient HD next on wednesday on discharge (2) Problem with dialysis access Current Visit: Yes Status: Acute Failed AV access requiring permcath insertion Will schedule back to vascular surgeon for new AV access if the old not amenable to intervention Qualifiers: Encounter type: subsequent encounter Qualified Code(s): T82.898D - Other specified complication of vascular prosthetic devices, implants and grafts, subsequent encounter (3) Anemia Current Visit: Yes Status: Chronic Last hgb documented at 7.7 as of 05/29/17, will resume EPO and iv iron on outpatient HD to hopefully achieve the goal of 10 and above Qualifiers: Anemia type: due to chronic kidney disease Chronic kidney disease stage: on chronic dialysis Qualified Code(s): N18.6 - End stage renal disease; D63.1 - Anemia in chronic kidney disease; Z99.2 - Dependence on renal dialysis Subjective Principal diagnosis: anemia, ESRD on dialysis, dyspnea Interval history: Pt seen and examined this am on HD with no new complaints. New permcath functioning well. Eager to be discharged afterwards. Objective - Vital Signs Vital signs: Vital Signs Temp Pulse Resp BP Pulse Ox 05/21/17 14:49 97.3 F L 20 126/59 05/21/17 13:20 97.8 F 83 19 123/71 97 05/21/17 13:05 115/58 05/21/17 12:50 132/66 05/21/17 12:35 122/63 05/21/17 12:20 130/63 05/21/17 12:05 127/53 05/21/17 11:50 130/54 05/21/17 11:35 139/68 05/21/17 11:20 139/68 05/21/17 11:05 140/59 05/21/17 10:50 126/54 05/21/17 10:35 125/55 05/21/17 10:20 112/56 05/21/17 10:05 124/54 05/21/17 09:50 124/54 05/21/17 09:35 97.7 F 18 120/56 05/21/17 04:47 98.9 F 84 20 143/73 99 05/21/17 00:14 99 F 93 20 122/63 97 05/20/17 20:30 97 05/20/17 20:29 98.8 F 89 20 123/65 97 05/20/17 17:30 87 16 110/48 98 05/20/17 17:15 82 16 111/62 97 05/20/17 17:02 78 16 115/65 98 05/20/17 16:47 98.6 F 84 16 138/71 99 Intake and Output 05/21/17 05/21/17 05/21/17 07:59 15:59 23:59 Intake Total 600 / 600 Output Total 300 / 300 3600 / 3600 Balance -300 / -300 -3000 / -3000 Intake: Oral 0 / 0 Intake, Rinseback and 600 / 600 Flushes Output: Urine 300 / 300 0 / 0 Urethral ([place]kins) 300 / 300 Total Dialysis (HD) 3600 / 3600 Output Other: Meal Breakfast Percent of Meal Consumed 15% Weight 115.1 kg 115.1 kg Blood Glucose* 141 Hemodialysis Net Fluid 3000 Removed (mL) Patient Weight 05/21/17 23:59 Weight 115.1 kg - General Appearance General appearance: Present: chronically ill (NAD) EENT: Present: ATNC, mucous membranes moist Neck: Present: no JVD, supple Respiratory: Present: clear (ant bilat) Cardiology: Present: edema (LE bilat, impoved with chronic venous changes), normal S1, normal S2 Dialysis Vascular Access: Venous Catheter Gastrointestinal: Present: no tenderness, no guarding, obese Integumentary: Present: warm and dry Neurologic: Present: no focal deficit Musculoskeletal: Present: no deformities Psychiatric: Present: mood/affect appropriate, cooperative - Lab 05/20/17 03:21 05/21/17 09:58 Most recent lab results Calcium 9.0 mg/dL (8.6-10.8) 05/21/17 09:58 Magnesium 1.7 mg/dL (1.6-2.6) 05/20/17 03:19 Consult Discharge Plan - Plan Additional Instructions: Follow up appointment ON 05/24/17 arrival at [address] Saurabh Oconnor, CV surgeon at [facility]. Setup follow up appointment with Dr. Unger, Orthopedics, for right shoulder evaluation.. Referrals: Scot Unger MD [Partnered Physician] - Tristen Quintana MD [Primary Care Provider] - (patient will follow up with pcp at [facility]) Prescriptions: Oxycodone HCl/Acetaminophen [Percocet 10-325 mg Tablet] 10 mg PO Q6HR #40 tablet OxyCODONE ER (12 HR) [OxyCONTIN] 20 mg PO Q12HR #20 tab.er.12h
== END 2017-05-21 17:37 | DRG 640 ==
LOC: EMEROO 17:42 → 2ANU 17:42 → SUATTDRO 20:47 → 2ANU 21:18
PROVIDERS: ADMIT Hospitalist; ATTEND Internal Medicine

== ENCOUNTER 2017-10-18 02:09 | Observation (INO) ==
[2017-10-18] MEDS ORDERED: Ondansetron 4 MG/2 ML VIAL IVP ONE (02:22)
--- NOTE | 2017-10-18 02:36 | Emergency Department Note ---
Disposition Clinical Impression: Hyperglycemia, ESRD (end stage renal disease) on dialysis, HCAP (healthcare- associated pneumonia) Urinary tract infection Qualifiers: Urinary tract infection type: site unspecified Hematuria presence: with hematuria Qualified Code(s): N39.0 - Urinary tract infection, site not specified ; R31.9 - Hematuria, unspecified; R31.9 - Hematuria, unspecified Chest pain Qualifiers: Chest pain type: unspecified Qualified Code(s): R07.9 - Chest pain, unspecified Disposition: Admitted As Inpatient Condition: Good Referrals: Tristen Quintana MD [Primary Care Provider] - Forms: ED Satisfaction Letter, Work/School Release Time of Disposition: 05:22 General Adult HPI - General Chief complaint: ED General Medical Stated complaint: N/V, HERNÁN, CP Time Seen by Provider: 10/18/17 02:13 Source: patient, EMS Mode of arrival: EMS Limitations: no limitations Nursing Notes Reviewed: Yes Vital Signs Reviewed: Yes - History of Present Illness HPI Narrative: 62-year-old female history of end-stage renal disease, diabetes, CAD and CVA presents to the ED via EMS for nausea vomiting and chest pain. About 3 hours prior to arrival while asleep patient woke up nauseated with episode of vomiting. Shortly afterwards she had burning midsternal chest pain. She felt sure breath as well. States last time she had similar symptoms she had a heart attack. This was several years ago. Her womens health nurse practitioner is Dr. Cardenas. Last evaluation October 2016. She reports a cough for past several days but denies any fevers. She is currently being treated for decubitus ulcers. She denies any abdominal pain. Pain Scale: 9 - Related Data Home Medications Medication Instructions Recorded Confirmed Clopidogrel [Plavix] 75 mg PO DAILY 05/11/15 09/13/17 Omeprazole [PriLOSEC] 20 mg PO BID 05/11/15 09/13/17 Colestipol HCl [Colestid] 1 gm PO BID 06/12/15 09/13/17 Carvedilol 12.5 mg PO BID 10/28/15 09/13/17 amLODIPine [Norvasc] 5 mg PO DAILY 06/09/16 09/13/17 Calcium Acetate [Phos-LO] 1,334 mg PO TIDWM 09/06/16 09/13/17 Furosemide [Lasix] 80 mg PO BID 09/06/16 09/13/17 metOLazone [Zaroxolyn] 2.5 mg PO DAILY 09/06/16 09/13/17 Tiotropium [Spiriva] 18 mcg IH DAILY 01/12/17 09/13/17 Folic Acid/Vit Bcomp,C [Renal 0.8 mg PO DAILY 04/15/17 09/13/17 Vitamin Tablet] Insulin Glargine,Hum.rec.anlog 60 unit SQ BID 05/13/17 09/13/17 [Lantus Solostar] ARIPiprazole [Abilify] 10 mg PO DAILY 09/13/17 09/13/17 Amitriptyline HCl 100 mg PO HS 09/13/17 09/13/17 Ammonium Lactate 1 appl TP BID 09/13/17 09/13/17 Aspirin Enteric Coated [Aspirin EC] 81 mg PO DAILY 09/13/17 09/13/17 Budesonide/Formoterol 160/4.5 2 puff IH BIDR 09/13/17 09/13/17 [Symbicort 160/4.5] Calcium Acetate [Phos-LO] 667 mg PO AD 09/13/17 09/13/17 Cholecalciferol (Vitamin D3) 50,000 unit PO TH 09/13/17 09/13/17 [Vitamin D3] Hydralazine HCl 50 mg PO BID 09/13/17 09/13/17 Insulin LISPRO [HumaLOG] 0 units SQ TIDAC 09/13/17 09/13/17 Lidocaine/Prilocaine CREAM [Emla] 1 appl TP AD PRN 09/13/17 09/13/17 OxyCODONE ER (12 HR) [OxyCONTIN] 20 mg PO Q12HR 09/13/17 09/15/17 OxyCODONE/APAP 10/325 [Percocet 1 each PO Q6H PRN 09/13/17 09/13/17 10/325 MG] Oxygen 2 l NS AD 09/13/17 09/13/17 Rosuvastatin [Crestor] 40 mg PO HS 09/13/17 09/13/17 Sennosides [Senna] 8.6 mg PO BID 09/13/17 09/13/17 Sevelamer [Renvela] 800 mg PO TIDWM 09/13/17 09/13/17 Previous Rx's Medication Instructions Recorded Gabapentin [Neurontin] 200 mg PO TID 30 Days capsule 06/18/16 Ertapenem [INVanz] 500 mg IVPB DAILY #11 vial 09/16/17 Doxycycline Hyclate 100 mg PO BID #20 tablet 09/30/17 Bacitracin OINT PKT [Ak-Tracin] 1 appl TP BID #20 packet 10/06/17 Allergies Allergy/AdvReac Type Severity Reaction Status Date / Time No Known Allergies Allergy Verified 10/18/17 02:12 All systems ED: reviewed and negative except as stated. Review of Systems: As Per HPI Constitutional: Denies: fever, chills ENT ED: Reports: congestion. Denies: throat pain Cardiovascular: Reports: chest pain. Denies: dyspnea on exertion Respiratory: Reports: cough, dyspnea Gastrointestinal: Reports: nausea, vomiting. Denies: abdominal pain, diarrhea Genitourinary: Denies: urgency, dysuria Musculoskeletal: Reports: other (Pressure ulcers). Denies: back pain Integumentary: Reports: lesions. Denies: rash, abrasion Neurological: Denies: headache Past Medical History - Past Medical History Attestation: Yes The following information was validated with the patient. Source: patient Medical history: Reports: arthritis, asthma, atrial fibrillation, CHF, COPD, coronary artery disease, CVA, DVT, diabetes, dialysis, fibromyalgia, GERD, GI bleed, hyperlipidemia, hypertension, kidney stones, migraine, myocardial infarction, osteoporosis, peripheral artery disease, renal disease, other Surgical history: Reports: angioplasty/stent, appendectomy, cholecystectomy, coronary bypass (CABG), hysterectomy, knee replacement, other, IVC filter Psychiatric history: Reports: anxiety, depression, schizophrenia, previous psychiatric hospitalization, other [employer] history: Reports: other - Social History Smoking Status: Current every day smoker Smokeless Tobacco Status: No Alcohol use: Reports: none Drug use: Reports: none Physical Exam - General Limitations: no limitations General appearance: alert, in no apparent distress - Head Head exam: atraumatic, normocephalic, normal inspection - Eye Eye exam: Present: normal appearance, PERRL, EOMI - ENT ENT exam: normal exam, normal oropharynx, mucous membranes moist - Expanded ENT Exam External ear exam: Present: normal external inspection Mouth exam: Present: normal external inspection, tongue normal (Protrusion likely from her CVA) Teeth exam: Present: normal inspection Throat exam: Present: normal inspection - Neck Neck exam: Present: normal inspection, full ROM, trachea midline - Chest Chest inspection: Present: normal inspection, symmetric chest wall rise. Absent : tenderness, rash - Respiratory Respiratory exam: Present: normal lung sounds bilaterally. Absent: respiratory distress, wheezes - Expanded Respiratory Exam Location: rales: Lower - Cardiovascular Cardiovascular exam: Present: regular rate, normal rhythm, normal heart sounds - Abdominal Exam Abdominal exam: Present: soft, Non-Tender, normal bowel sounds. Absent: tenderness, distention, guarding, rebound, rigidity - Extremities Exam Extremities exam: Present: normal inspection, full ROM, other (Chronic venous stasis and pressure ulcers on the heel, AV fistula to the left arm with palpable thrill). Absent: tenderness, pedal edema - Neurological Exam Neurological exam: Present: alert, oriented X3 - Psychiatric Psychiatric exam: Present: normal affect, normal mood - Skin Skin exam: Present: warm, dry, intact, normal color. Absent: rash, cyanosis, diaphoresis Course - Reevaluation(s) Reevaluation #1: EKG does not reveal STEMI. Patient does not have chest pain at this time. She was given 2 81 mg aspirin by squad. She reports this felt like her prior myocardial infarction in the past. She is in no respiratory distress. Nausea improved with Zofran. Patient has a history of diabetes and she had a critical glucose is 669. Serum ketone was 0.19. Urinalysis did not show any ketones in the urine. A VBG performed showed normal pH. Her bicarbonates 27. She is not in diabetic ketoacidosis. Her troponin is less than 0.03. Potassium is stable. She has a mild leukocytosis this could be likely due to the vomiting. Chest x-ray showed signs concerning for possible pneumonia. She does report some difficulty breathing with a cough. She was recently hospitalized in the last 3 months. Will treat her with vancomyosin and Zosyn that will also cover for the urinary tract infection seen on the urinalysis. She was given 10 units of insulin and given a 500 cc bolus of normal saline for some dehydration. She will need her typical dialysis. She would benefit admission for further treatment and management. Her decubitus ulcers are chronic and currently being evaluated at the wound clinic. Impression is healthcare acquired pneumonia, chest pain rule out ACS, urinary tract infection, end-stage renal disease, hyperglycemia. - Consultations Consultation #1: Spoke with on-call hospitalist china Anaya to admit for hyperglycemia, chest pain, HCAP, UTI, ESRD. No further orders at this time Vital Signs Temperature 97.8 F 10/18/17 02:12 Pulse Rate 84 10/18/17 02:12 Respiratory Rate 18 10/18/17 02:12 Blood Pressure 159/98 10/18/17 02:12 O2 Sat by Pulse Oximetry 99 10/18/17 02:12 Temperature 97.8 F 10/18/17 02:12 Pulse Rate 89 10/18/17 05:10 Respiratory Rate 19 10/18/17 05:10 Blood Pressure 163/97 10/18/17 05:10 O2 Sat by Pulse Oximetry 99 10/18/17 05:10 Oxygen Delivery Oxygen Delivery Nasal Cannula Medical Decision Making - MDM Narrative Medical decision making narrative: Patient was discussed with my attending physician who agrees with ED management and final disposition. They independently evaluated the patient. Please refer to their attestation to this encounter for additional information. This note was generated by [employer] voice recognition software and as a result grammatical or spelling errors may occur using this program. - Medical Records Medical records reviewed: Yes I reviewed the patient's medical records. - Lab Data Lab results reviewed: Yes I reviewed the patient's lab results. Result diagrams: 10/18/17 02:50 10/18/17 02:50 Lab Results 10/18/17 10/18/17 10/18/17 Range/Units 02:50 02:50 02:50 WBC 12.3 H (4.3-11.1) K/mcL RBC 4.59 (3.82-4.97) M/mcL Hgb 11.6 (11.5-15.4) g/dL Hct 36.7 (35.3-44.9) % MCV 80.0 L (83.0-100.0) fL MCH 25.3 L (28.0-33.3) pg MCHC 31.6 (31.6-35.5) g/dL RDW 19.8 H (11.5-14.5) % Plt Count 173 (140-400) K/mcL MPV 10.8 (9.4-12.4) fL Immature Gran % 0.6 (0-4) % Seg Neutrophils % 84.5 % Lymphocytes % 8.3 % Monocytes % 5.3 % Eosinophils % 0.8 % Basophils % 0.5 % Neutrophils # 10.4 H (1.6-8.9) K/mcL Lymphocytes # 1.0 (0.6-4.6) K/mcL Monocytes # 0.7 (0.0-1.3) K/mcL Eosinophils # 0.1 (0.0-0.6) K/mcL Basophils # 0.1 (0.0-0.2) K/mcL PT 10.5 (9.4-12.1) Seconds INR 1.0 APTT 31.0 (26.0-36.0) Seconds VBG pH (7.32-7.42) pH Units VBG pCO2 (41-51) mmHg VBG pO2 (25-50) mmHg VBG HCO3 (21-27) mEq/L Sodium 128 L (136-145) mEq/L Potassium 4.4 (3.5-5.1) mEq/L Chloride 92 L (98-107) mEq/L Carbon Dioxide 25 (23-29) mEq/L BUN 52 H (8-23) mg/dL Creatinine 2.60 H (0.60-1.20) mg/dL Est GFR ( Amer) 23 L (> 60) Est GFR (Non-Af Amer) 19 L (> 60) BUN/Creatinine Ratio 20 (6-26) Glucose 669 H* (70-105) mg/dL Calculated Osmolality 312 H (280-300) Lactic Acid (0.5-2.2) mmol/L Calcium 9.1 (8.6-10.3) mg/dL Total Bilirubin 0.4 (0.3-1.0) mg/dL Direct Bilirubin 0.1 (0.0-0.2) mg/dL Indirect Bilirubin 0.3 (0.0-1.2) mg/dL AST 15 (13-39) Units/L ALT 26 (7-52) Units/L Alkaline Phosphatase 248 H (34-104) Units/L Troponin I (< 0.04) ng/mL Serum Total Protein 7.0 (6.4-8.9) g/dL Albumin 3.5 (3.5-5.7) g/dL Globulin 3.5 (2.4-3.5) g/dL Albumin/Globulin Ratio 1.0 L (1.1-2.2) Lipase 21 (11-82) Units/L Beta-Hydroxybutyric Acd (0.02-0.27) mmol/L Urine Color (Yellow) Urine Clarity (Clear) Urine pH (5.0-8.0) pH Units Ur Specific [place] (1.010-1.025) Urine Protein (Neg-Trace) mg/dL Urine Glucose (UA) (Normal) mg/dL Urine Ketones (Negative) mg/dL Urine Blood (Negative) Urine Nitrite (Negative) Urine Bilirubin (Negative) Urine Urobilinogen (Normal) mg/dL Ur Leukocyte Esterase (Negative) Urine Microscopic RBC (0-3) per hpf Urine Microscopic WBC (0-3) per hpf Ur Squamous Epith Cells (None-Few) per lpf Urine Bacteria (None-Few) per hpf Hyaline Casts (None-Few) per lpf Ur Culture Indicated? (NO) 10/18/17 10/18/17 10/18/17 Range/Units 02:50 03:58 03:58 WBC (4.3-11.1) K/mcL RBC (3.82-4.97) M/mcL Hgb (11.5-15.4) g/dL Hct (35.3-44.9) % MCV (83.0-100.0) fL MCH (28.0-33.3) pg MCHC (31.6-35.5) g/dL RDW (11.5-14.5) % Plt Count (140-400) K/mcL MPV (9.4-12.4) fL Immature Gran % (0-4) % Seg Neutrophils % % Lymphocytes % % Monocytes % % Eosinophils % % Basophils % % Neutrophils # (1.6-8.9) K/mcL Lymphocytes # (0.6-4.6) K/mcL Monocytes # (0.0-1.3) K/mcL Eosinophils # (0.0-0.6) K/mcL Basophils # (0.0-0.2) K/mcL PT (9.4-12.1) Seconds INR APTT (26.0-36.0) Seconds VBG pH (7.32-7.42) pH Units VBG pCO2 (41-51) mmHg VBG pO2 (25-50) mmHg VBG HCO3 (21-27) mEq/L Sodium (136-145) mEq/L Potassium (3.5-5.1) mEq/L Chloride (98-107) mEq/L Carbon Dioxide (23-29) mEq/L BUN (8-23) mg/dL Creatinine (0.60-1.20) mg/dL Est GFR ( Amer) (> 60) Est GFR (Non-Af Amer) (> 60) BUN/Creatinine Ratio (6-26) Glucose (70-105) mg/dL Calculated Osmolality (280-300) Lactic Acid 1.8 (0.5-2.2) mmol/L Calcium (8.6-10.3) mg/dL Total Bilirubin (0.3-1.0) mg/dL Direct Bilirubin (0.0-0.2) mg/dL Indirect Bilirubin (0.0-1.2) mg/dL AST (13-39) Units/L ALT (7-52) Units/L Alkaline Phosphatase (34-104) Units/L Troponin I < 0.03 (< 0.04) ng/mL Serum Total Protein (6.4-8.9) g/dL Albumin (3.5-5.7) g/dL Globulin (2.4-3.5) g/dL Albumin/Globulin Ratio (1.1-2.2) Lipase (11-82) Units/L Beta-Hydroxybutyric Acd 0.19 (0.02-0.27) mmol/L Urine Color (Yellow) Urine Clarity (Clear) Urine pH (5.0-8.0) pH Units Ur Specific [place] (1.010-1.025) Urine Protein (Neg-Trace) mg/dL Urine Glucose (UA) (Normal) mg/dL Urine Ketones (Negative) mg/dL Urine Blood (Negative) Urine Nitrite (Negative) Urine Bilirubin (Negative) Urine Urobilinogen (Normal) mg/dL Ur Leukocyte Esterase (Negative) Urine Microscopic RBC (0-3) per hpf Urine Microscopic WBC (0-3) per hpf Ur Squamous Epith Cells (None-Few) per lpf Urine Bacteria (None-Few) per hpf Hyaline Casts (None-Few) per lpf Ur Culture Indicated? (NO) 10/18/17 10/18/17 Range/Units 04:05 04:27 WBC (4.3-11.1) K/mcL RBC (3.82-4.97) M/mcL Hgb (11.5-15.4) g/dL Hct (35.3-44.9) % MCV (83.0-100.0) fL MCH (28.0-33.3) pg MCHC (31.6-35.5) g/dL RDW (11.5-14.5) % Plt Count (140-400) K/mcL MPV (9.4-12.4) fL Immature Gran % (0-4) % Seg Neutrophils % % Lymphocytes % % Monocytes % % Eosinophils % % Basophils % % Neutrophils # (1.6-8.9) K/mcL Lymphocytes # (0.6-4.6) K/mcL Monocytes # (0.0-1.3) K/mcL Eosinophils # (0.0-0.6) K/mcL Basophils # (0.0-0.2) K/mcL PT (9.4-12.1) Seconds INR APTT (26.0-36.0) Seconds VBG pH 7.41 (7.32-7.42) pH Units VBG pCO2 43 (41-51) mmHg VBG pO2 94 H (25-50) mmHg VBG HCO3 27 (21-27) mEq/L Sodium (136-145) mEq/L Potassium (3.5-5.1) mEq/L Chloride (98-107) mEq/L Carbon Dioxide (23-29) mEq/L BUN (8-23) mg/dL Creatinine (0.60-1.20) mg/dL Est GFR ( Amer) (> 60) Est GFR (Non-Af Amer) (> 60) BUN/Creatinine Ratio (6-26) Glucose (70-105) mg/dL Calculated Osmolality (280-300) Lactic Acid (0.5-2.2) mmol/L Calcium (8.6-10.3) mg/dL Total Bilirubin (0.3-1.0) mg/dL Direct Bilirubin (0.0-0.2) mg/dL Indirect Bilirubin (0.0-1.2) mg/dL AST (13-39) Units/L ALT (7-52) Units/L Alkaline Phosphatase (34-104) Units/L Troponin I (< 0.04) ng/mL Serum Total Protein (6.4-8.9) g/dL Albumin (3.5-5.7) g/dL Globulin (2.4-3.5) g/dL Albumin/Globulin Ratio (1.1-2.2) Lipase (11-82) Units/L Beta-Hydroxybutyric Acd (0.02-0.27) mmol/L Urine Color Yellow (Yellow) Urine Clarity Cloudy A (Clear) Urine pH 5.0 (5.0-8.0) pH Units Ur Specific [place] 1.018 (1.010-1.025) Urine Protein 30 H (Neg-Trace) mg/dL Urine Glucose (UA) >=1000 H (Normal) mg/dL Urine Ketones Negative (Negative) mg/dL Urine Blood Trace H (Negative) Urine Nitrite Negative (Negative) Urine Bilirubin Negative (Negative) Urine Urobilinogen Normal (Normal) mg/dL Ur Leukocyte Esterase Small H (Negative) Urine Microscopic RBC 3-5 H (0-3) per hpf Urine Microscopic WBC 30-50 H (0-3) per hpf Ur Squamous Epith Cells None Seen (None-Few) per lpf Urine Bacteria Many H (None-Few) per hpf Hyaline Casts None Seen (None-Few) per lpf Ur Culture Indicated? YES A (NO) - Radiology Data Radiology results reviewed: Yes I reviewed the patient's radiology results. Chest X-Ray 10/18/17 02:23 IMPRESSION: Right basilar atelectasis versus pneumonia. D/ / Shen Odom MD / Shen Odom MD Interpreting Provider: Shen Odom MD - EKG Data EKG #1 EKG attestation: Yes I reviewed and interpreted this EKG. EKG results narrative: EKG performed 219 normal sinus rhythm, normal axis, good R wave progression, nonspecific ST QA changes, no significant ST elevation, intervals within normal limits. Compared to old EKG performed 05/13/2017 shows atrial fibrillation 86 beats per minute. No acute ischemic changes. Attestation Statement - Attestation Attestation: I, Rommel Mendenhall MD, personally evaluated this patient and discussed their management with the resident physician. I reviewed the resident's note and agree with the documented findings, medical decision making, and plan of care. 62-year-old female presents to the emergency department by embolus with multiple complaints. Patient has end-stage renal disease and is on hemodialysis Wednesday, Wednesday, and Wednesday. She presents tonight complaining of some nausea and vomiting. She complains that her blood sugar is running high. She complains of some mid substernal chest pain which she describes as a pressure. She complains of shortness of breath. She is on home oxygen continuously. Some increased cough. No definite fever. Patient was last hospitalized about one month ago. On examination patient is a well-developed obese elderly female in no acute distress. She is alert and answers questions appropriately. There is no cyanosis or diaphoresis. Breath sounds are equal bilaterally with no definite rales or wheezes noted. Heart regular rate and rhythm. Abdomen is soft with normal bowel sounds. Mild diffuse tenderness. Labs reviewed. Glucose 669. UTI noted. Chest x-ray shows right basilar atelectasis versus pneumonia. The hospitalist, Dr. Busch, was consulted and accepted admission of the patient. Heart Score - Score History: Slightly Suspicious EKG: Non Specific repolarisation Disturbance Age: 45-65 Risk Factors: Equal/Greater than 3 risk factor or history of atherosclerotic disease Troponin: Less than normal limit HEART Score Total: 4
[2017-10-18 02:59] LABS: Basophils # 0.1 K/mcL (0.0-0.2); Basophils % 0.5 %; Eosinophils # 0.1 K/mcL (0.0-0.6); Eosinophils % 0.8 %; Hematocrit 36.7 % (35.3-44.9); Hemoglobin 11.6 g/dL (11.5-15.4); Immature Granulocytes % 0.6 % (0-4); Lymphocytes % 8.3 %; Mean Corpuscular HGB Conc 31.6 g/dL (31.6-35.5); Mean Corpuscular Hemoglobin 25.3 pg (28.0-33.3); Mean Platelet Volume 10.8 fL (9.4-12.4); Monocytes # 0.7 K/mcL (0.0-1.3); Monocytes % 5.3 %; Neutrophils # 10.4 K/mcL (1.6-8.9); Platelet Count 173 K/mcL (140-400); Red Blood Count 4.59 M/mcL (3.82-4.97); Red Cell Distribution Width 19.8 % (11.5-14.5); Segmented Neutrophils % 84.5 %
[2017-10-18 03:05] LABS: Prothrombin Time 10.5 Seconds (9.4-12.1)
[2017-10-18] MEDS ORDERED: 0.9 % Sodium Chloride 1,000 ML IVC STA (03:21)
[2017-10-18 03:22] LABS: Albumin 3.5 g/dL (3.5-5.7); Bilirubin,Direct 0.1 mg/dL (0.0-0.2); Bilirubin,Indirect 0.3 mg/dL (0.0-1.2); Bilirubin,Total 0.4 mg/dL (0.3-1.0); Calcium 9.1 mg/dL (8.6-10.3); Globulin 3.5 g/dL (2.4-3.5); Potassium 4.4 mEq/L (3.5-5.1)
[2017-10-18 04:29] LABS: VBG HCO3 27 mEq/L (21-27); VBG PCO2 43 mmHg (41-51); VBG PH 7.41 pH Units (7.32-7.42); VBG PO2 94 mmHg (25-50)
[2017-10-18 04:36] LABS: Bilirubin,Urine Negative (Negative); Blood,Urine Trace (Negative); Clarity,Urine Cloudy (Clear); Color,Urine Yellow (Yellow); Glucose,Urine (UA) >=1000 mg/dL (Normal); Ketones,Urine Negative (Negative); Leukocyte Esterase,Urine Small (Negative); Nitrite,Urine Negative (Negative); Protein,Urine 30 mg/dL (Neg-Trace); Specific Gravity,Urine 1.018 (1.010-1.025); Urobilinogen,Urine Normal (Normal)
[2017-10-18] MEDS ORDERED: Insulin Human Regular 10 UNIT in 0.9 % Sodium Chloride 10 ML IV ONE (04:36)
[2017-10-18 04:39] LABS: Bacteria,Urine Many per hpf (None-Few); Hyaline Casts,Urine None Seen per lpf (None-Few); Squamous Epithelial Cell,Urine None Seen per lpf (None-Few); WBC,Urine 30-50 per hpf (0-3)
[2017-10-18] MEDS ORDERED: 0.9 % Sodium Chloride 500 ML IVC ONE (04:55)
[2017-10-18] MEDS ORDERED: Vancomycin 1,750 MG in D5% in Water 500 ML IVPB ONE (04:58)
[2017-10-18] MEDS ORDERED: Piperacillin/Tazobactam 3.375 GM in Water for inj. (sterile) 20 ML IVP ONE (04:58)
[2017-10-18] MEDS ORDERED: *HR* Morphine 2 MG/ML SYRINGE IVP PRN ×2 (08:22→08:29)
[2017-10-18 08:32] LABS: Hepatitis B Surface Antibody 74.76 mIU/mL; Hepatitis B Surface Antigen Nonreactive (Nonreactive)
--- NOTE | 2017-10-18 08:35 | Internal Med History&Physical ---
Date of Encounter: 10/18/17 Time of Encounter: 08:33 Assessment and Plan (1) UTI (urinary tract infection) Current visit: Yes Status: Acute Patient has recurrent training tract infection with resistant organisms. According to prior cultures or start the patient on meropenem for UTI. Patient is describing abdominal pain and back pain CT scan of abdomen will be performed also TO look for OBSTRUCTIVE uropathy Qualifiers: Qualified Code(s): N39.0 - Urinary tract infection, site not specified; R31.9 - Hematuria, unspecified; R31.9 - Hematuria, unspecified (2) Secondary diabetes mellitus with HHNC (hyperglycemia hyperosmolar non- ketotic coma) Current visit: Yes Status: Acute There is no gap. Bicarb is 25. No ketones. Sugars currently are 400. We will start the patient on a sliding scale insulin every 4 hours. unfortunately cannot give long-acting or premeal insulin because of her nausea. If sugars remain uncontrolled, will start the patient on insulin drip. (3) HCAP (healthcare-associated pneumonia) Current visit: Yes Status: Acute Vancomycin meropenem. Check sputum blood cultures. 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 will dialyze today. (5) Chest pain Current visit: Yes Status: Acute Initial troponin normal EKG without ST segment shifts slight high takeoff ST segment in inferior leads. Will repeat EKG. Serial troponin Qualifiers: Qualified Code(s): R07.9 - Chest pain, unspecified (6) ESRD (end stage renal disease) Current visit: No Status: Chronic (7) Code status needs review Current visit: Yes Status: Acute Patient has not yet decided on code status. She needs time to think about and didnt want to provide any decision currently Internal Medicine - H&P: HPI History of present illness: Ms. Riley is a 62 year old female with multiple medical problems presented to the emergency room today with the main complain of abdominal and chest pain and nausea/vomiting. About 3 hours prior to arrival to emergency room patients started experiencing pain in the upper abdomen radiating to the chest associated with nausea nonbloody emesis. She has been having recently multiple urinary tract infection with resistant organisms and was supposed to be evaluated by a urologist. She has also been experiencing some productive cough the past few days and worsening shortness of breath. She denies any fever Past Med Surg Social Fam HX - Past Medical History Medical history: arthritis, asthma, atrial fibrillation, CHF, COPD, coronary artery disease, CVA, DVT, diabetes, dialysis, fibromyalgia, GERD, GI bleed, hyperlipidemia, hypertension, kidney stones, migraine, myocardial infarction, osteoporosis, peripheral artery disease, renal disease, other Psychiatric history: anxiety, depression, schizophrenia, previous psychiatric hospitalization, other - Past Surgical History Surgical History: angioplasty/stent, appendectomy, cholecystectomy, coronary bypass (CABG), hysterectomy, knee replacement, other, IVC filter - Social History Smoking Status: Current every day smoker Smokeless Tobacco Status: No Alcohol use: none Drug use: none - Family History Father Living Status: Hx Family Cardiac Disorders: Yes Hx Family Endocrine Disorder: Yes Mother Living Status: Still Living Hx Family Respiratory Disorders: Yes (end stage copd) Internal Medicine - H&P: Meds Clopidogrel [Plavix] 75 mg PO DAILY 05/11/15 [History] Omeprazole [PriLOSEC] 20 mg PO BID 05/11/15 [History] Colestipol HCl [Colestid] 1 gm PO BID 06/12/15 [History] Carvedilol 12.5 mg PO BID 10/28/15 [History] amLODIPine [Norvasc] 5 mg PO DAILY 06/09/16 [History] Gabapentin [Neurontin] 200 mg PO TID 30 Days capsule 06/18/16 [Rx] Calcium Acetate [Phos-LO] 1,334 mg PO TIDWM 09/06/16 [History] Furosemide [Lasix] 80 mg PO BID 09/06/16 [History] metOLazone [Zaroxolyn] 2.5 mg PO DAILY 09/06/16 [History] Tiotropium [Spiriva] 18 mcg IH DAILY 01/12/17 [History] Folic Acid/Vit Bcomp,C [Renal Vitamin Tablet] 0.8 mg PO DAILY 04/15/17 [History] Insulin Glargine,Hum.rec.anlog [Lantus Solostar] 60 unit SQ BID 05/13/17 [ History] ARIPiprazole [Abilify] 10 mg PO DAILY 09/13/17 [History] Amitriptyline HCl 100 mg PO HS 09/13/17 [History] Ammonium Lactate 1 appl TP BID 09/13/17 [History] Aspirin Enteric Coated [Aspirin EC] 81 mg PO DAILY 09/13/17 [History] Budesonide/Formoterol 160/4.5 [Symbicort 160/4.5] 2 puff IH BIDR 09/13/17 [ History] Calcium Acetate [Phos-LO] 667 mg PO BID PRN 09/13/17 [History] Cholecalciferol (Vitamin D3) [Vitamin D3] 50,000 unit PO TH 09/13/17 [History] Hydralazine HCl 50 mg PO BID 09/13/17 [History] Insulin LISPRO [HumaLOG] 20 units SQ TIDAC 09/13/17 [History] Lidocaine/Prilocaine CREAM [Emla] 1 appl TP AD PRN 09/13/17 [History] OxyCODONE ER (12 HR) [OxyCONTIN] 20 mg PO Q12HR 09/13/17 [History] OxyCODONE/APAP 10/325 [Percocet 10/325 MG] 1 tab PO Q6H PRN 09/13/17 [History] Oxygen 2 l NS AD 09/13/17 [History] Rosuvastatin [Crestor] 20 mg PO HS 09/13/17 [History] Sennosides [Senna] 8.6 mg PO BID 09/13/17 [History] Sevelamer [Renvela] 800 mg PO TIDWM 09/13/17 [History] Ertapenem [INVanz] 500 mg IVPB DAILY #11 vial 09/16/17 [Rx] Bacitracin OINT PKT [Ak-Tracin] 1 appl TP BID #20 packet 10/06/17 [Rx] Albuterol Neb [AccuNeb] 0.63 mg IH Q6H PRN 10/18/17 [History] 3 Allergy/AdvReac Type Severity Reaction Status Date / Time No Known Allergies Allergy Verified 10/18/17 02:12 All Systems PM: A 10-system review of systems was performed and is negative for pertinent findings except as documented above in the HPI. Review of systems: 10 point review of systems is negative except for HPI - Constitutional Vitals: Temp Pulse Resp BP Pulse Ox 97.9 F 88 18 153/71 96 10/18/17 07:10 10/18/17 07:10 10/18/17 07:12 10/18/17 07:12 10/18/17 07:10 Exam: Gen.: patient is alert oriented times 3 not in distress. Cardiac: normal S1 S2 no additional sounds are murmurs. Chest: diminished air entry in bases Abdomen: soft, non tender, non distended Lower extremity no swelling mucous membranes: moist Internal Med - H&P Results - Labs CBC & Chem 7: 10/18/17 02:50 10/18/17 02:50
[2017-10-18] MEDS ORDERED: Tiotropium 18 MCG inhalation IH SCH (09:00)
[2017-10-18] MEDS ORDERED: Vancomycin 1 EACH in D5% in Water 250 ML IVPB SCH (09:00)
[2017-10-18] MEDS ORDERED: Pantoprazole 40 MG VIAL IVP SCH (09:00)
[2017-10-18] MEDS ORDERED: 0.9 % Sodium Chloride 250 ML IVC PRN (09:28)
[2017-10-18] MEDS ORDERED: 0.9 % Sodium Chloride 1,000 ML PRIME SCH (09:30)
[2017-10-18] MEDS: Aspirin Enteric Coated 81 MG Tablet PO SCH (09:36)
[2017-10-18] MEDS: ARIPiprazole 10 MG TABLET PO SCH (09:37)
[2017-10-18] MEDS: Gabapentin 100 MG CAPSULE PO SCH ×3 (09:37→21:21)
[2017-10-18] MEDS: Insulin LISPRO 300 UNITS/3 ML VIAL SQ SCH ×4 (09:37→21:21)
[2017-10-18] MEDS: Meropenem 500 MG in Water for inj. (sterile) 20 ML 10 ML IVP ONE ×2 (09:37→13:38)
[2017-10-18] MEDS: Nitroglycerin 0.3 MG PATCH.TD24 TD SCH (09:38)
[2017-10-18] MEDS: Ipratropium/Albuterol Neb 3 ML IH SCH ×3 (10:58→21:44)
[2017-10-18] MEDS: Budesonide/Formoterol 160/4.5 MDI IH SCH ×2 (10:58→21:44)
[2017-10-18] MEDS: Calcium Acetate 667 MG CAPSULE PO SCH ×2 (13:36→17:15)
[2017-10-18] MEDS ORDERED: 0.9 % Sodium Chloride 2,000 ML ONE (15:42)
[2017-10-18] MEDS ORDERED: Meropenem 500 MG in 0.9 % Sodium Chloride Mini Bag 100 ML IVPB SCH (16:00)
[2017-10-18] MEDS: *HR* OxyCODONE ER (12 HR) 20 MG TABLET PO SCH (18:06)
[2017-10-18] MEDS: Meropenem 500 MG in Water for inj. (sterile) 20 ML 10 ML IVP SCH (18:07)
--- NOTE | 2017-10-18 20:50 | Nephrology Consult Note ---
Date of Encounter: 10/18/17 Time of Encounter: 11:00 Assessment and Plan (1) ESRD (end stage renal disease) on dialysis Status: Chronic Will continue HD with UF goal of approx. 4kg as tolerated Given volume overload, will plan for additional UF tomorrow as well (2) Hyponatremia Status: Acute Likely due to hyperglycemia with glucose over 600 on presentation and volume overload. Should improve with correction of both (3) DMII (diabetes mellitus, type 2) Status: Acute Management per primary team Qualifiers: Qualified Code(s): E11.9 - Type 2 diabetes mellitus without complications History of Present Illness - Reason for Consult Consult date: 10/18/17 end stage renal disease Requesting physician: Óscar Means - History of Present Illness 62 y o female with PMH of ESRD on HD, DM, HTN, CAD with CHF and recurrent UTIs admitted this am with abdominal and chest pains along with nausea and vomiting. She is being treated once again for possible UTI. Renal consulted to provide ESRD care. Last HD was last wednesday. Pt seen and examined on HD resting but arousable with a myriad of complaints including contined vaginal odor and discharge, has yet to see blood bank business manager with appt far removed. Past Med Surg Social Fam HX - Past Medical History Medical history: arthritis, asthma, atrial fibrillation, CHF, COPD, coronary artery disease, CVA, DVT, diabetes, dialysis, fibromyalgia, GERD, GI bleed, hyperlipidemia, hypertension, kidney stones, migraine, myocardial infarction, osteoporosis, peripheral artery disease, renal disease, other Psychiatric history: anxiety, depression, schizophrenia, previous psychiatric hospitalization, other - Past Surgical History Surgical History: angioplasty/stent, appendectomy, cholecystectomy, coronary bypass (CABG), hysterectomy, knee replacement, other, IVC filter - Social History Smoking Status: Current every day smoker Smokeless Tobacco Status: No Alcohol use: none Drug use: none - Family History Father Living Status: Hx Family Cardiac Disorders: Yes Hx Family Endocrine Disorder: Yes Mother Living Status: Still Living Hx Family Respiratory Disorders: Yes (end stage copd) Medications and Allergies Clopidogrel [Plavix] 75 mg PO DAILY 05/11/15 [History] Omeprazole [PriLOSEC] 20 mg PO BID 05/11/15 [History] Colestipol HCl [Colestid] 1 gm PO BID 06/12/15 [History] Carvedilol 12.5 mg PO BID 10/28/15 [History] Calcium Acetate [Phos-LO] 1,334 mg PO TIDWM 09/06/16 [History] Folic Acid/Vit Bcomp,C [Renal Vitamin Tablet] 0.8 mg PO DAILY 04/15/17 [History] ARIPiprazole [Abilify] 10 mg PO DAILY 09/13/17 [History] Amitriptyline HCl 100 mg PO HS 09/13/17 [History] Aspirin Enteric Coated [Aspirin EC] 81 mg PO DAILY 09/13/17 [History] Budesonide/Formoterol 160/4.5 [Symbicort 160/4.5] 2 puff IH BIDR 09/13/17 [ History] Cholecalciferol (Vitamin D3) [Vitamin D3] 50,000 unit PO TH 09/13/17 [History] Insulin LISPRO [HumaLOG] 20 units SQ TIDAC 09/13/17 [History] Lidocaine/Prilocaine CREAM [Emla] 1 appl TP AD PRN 09/13/17 [History] OxyCODONE ER (12 HR) [OxyCONTIN] 20 mg PO Q12HR 09/13/17 [History] OxyCODONE/APAP 10/325 [Percocet 10/325 MG] 1 tab PO Q6H PRN 09/13/17 [History] Oxygen 2 l NS AD 09/13/17 [History] Sennosides [Senna] 8.6 mg PO BID 09/13/17 [History] Sevelamer [Renvela] 800 mg PO TIDWM 09/13/17 [History] Albuterol Neb [AccuNeb] 0.63 mg IH Q6H PRN 10/18/17 [History] Gabapentin [Neurontin] 100 mg PO TID #60 capsule 10/21/17 [Rx] Insulin Glargine,Hum.rec.anlog [Lantus Solostar] 45 unit SQ BID #0 10/21/17 [Rx] Rosuvastatin [Crestor] 10 mg PO HS #15 tablet 10/21/17 [Rx] Docusate Sodium [Colace] 100 mg PO BID #60 capsule 10/26/17 [Rx] Ertapenem [INVanz] 500 mg IVPB DAILY #8 vial 10/26/17 [Rx] amLODIPine [Norvasc] 5 mg PO DAILY 10/26/17 [History] metOLazone [Zaroxolyn] 1 tab PO DAILY 10/26/17 [History] 3 Allergy/AdvReac Type Severity Reaction Status Date / Time No Known Allergies Allergy Verified 10/18/17 02:12 Review of Systems All Systems: reviewed and no additional remarkable complaints except as stated ( 10 systems reviewed and as noted in HPI) Exam - Vital Signs Vital signs: Initial Vital Signs Temp Pulse Resp BP Pulse Ox 97.8 F 84 18 159/98 99 10/18/17 02:12 10/18/17 02:12 10/18/17 02:12 10/18/17 02:12 10/18/17 02:12 Vital Signs - Last 8 Hours Temp Pulse Resp BP Pulse Ox 10/18/17 20:24 98.1 F 83 16 122/58 90 10/18/17 16:58 18 97 10/18/17 16:01 98.5 F 88 17 145/67 97 10/18/17 14:25 98.1 F 18 165/66 10/18/17 14:00 157/81 10/18/17 13:45 166/69 10/18/17 13:30 172/66 10/18/17 13:15 161/68 10/18/17 13:00 188/59 Intake and Output 10/18/17 10/18/17 10/18/17 07:59 15:59 23:59 Intake Total 600 / 600 10 / 10 Output Total 4600 / 4600 Balance -4000 / -4000 10 / 10 Intake: IV Fluids 10 / 10 Merrem 500 MG In Water for inj. 10 10 (sterile) 10 ML @ 200 mls/hr IVP Q24H [facility] Rx#:[id number] Oral 0 / 0 Intake, Rinseback and Flushes 600 / 600 Output: Urine 0 / 0 Total Dialysis (HD) Output 4600 / 4600 Other: # Voids 1 Blood Glucose* 127 181 Hemodialysis Net Fluid Removed 4000 (mL) - General Appearance General appearance: chronically ill EENT: ATNC, mucous membranes moist Neck: no JVD, supple Respiratory: clear Cardiology: edema (LE bilat), normal S1, normal S2 - Dialysis Access Dialysis Vascular Access: Arteriovenous Graft thrill: Yes bruit: Yes Gastrointestinal: no tenderness, no guarding, obese Integumentary: warm and dry, chronic venous stasis Neurologic: no focal deficit Musculoskeletal: no deformities Psychiatric: mood/affect appropriate, cooperative Results - Lab Results 10/21/17 08:40 10/21/17 08:40 Most recent lab results Calcium 9.1 mg/dL (8.6-10.3) 10/18/17 02:50 Consult Discharge Plan - Plan Additional Instructions: F/up with PCP in 1-2 weeks F/up with Urology- she missed her appointment with F/up with RETORT ENGINEER as scheduled F/up with HD 3 times/week- [facility] Referrals: Tristen Quintana MD [Primary Care Provider] - 10/28/17 1:20 pm () Naren Garcia MD [Partnered Physician] - 11/02/17 3:30 pm Prescriptions: Gabapentin [Neurontin] 100 mg PO TID #60 capsule Rosuvastatin [Crestor] 10 mg PO HS #15 tablet
[2017-10-18] MEDS: Ondansetron 4 MG/2 ML VIAL IVP PRN (21:19)
[2017-10-19] MEDS: Insulin LISPRO 300 UNITS/3 ML VIAL SQ SCH ×6 (00:51→23:10)
[2017-10-19] MEDS: *HR* OxyCODONE ER (12 HR) 20 MG TABLET PO SCH ×2 (05:03→18:35)
[2017-10-19] MEDS: Ipratropium/Albuterol Neb 3 ML IH SCH ×4 (05:04→21:24)
[2017-10-19 05:26] LABS: Hematocrit 37.9 % (35.3-44.9); Hemoglobin 11.8 g/dL (11.5-15.4); Immature Granulocytes % 0.7 % (0-4); Lymphocytes % 8.9 %; Mean Corpuscular HGB Conc 31.1 g/dL (31.6-35.5); Mean Corpuscular Hemoglobin 25.4 pg (28.0-33.3); Mean Corpuscular Volume 81.7 fL (83.0-100.0); Mean Platelet Volume 10.7 fL (9.4-12.4); Monocytes % 7.8 %; Platelet Count 179 K/mcL (140-400); Red Blood Count 4.64 M/mcL (3.82-4.97); Red Cell Distribution Width 20.8 % (11.5-14.5); Segmented Neutrophils % 81.2 %
[2017-10-19 05:27] LABS: Basophils # 0.1 K/mcL (0.0-0.2); Basophils % 0.4 %; Eosinophils # 0.1 K/mcL (0.0-0.6); Lymphocytes # 1.2 K/mcL (0.6-4.6); Monocytes # 1.1 K/mcL (0.0-1.3); Neutrophils # 11.3 K/mcL (1.6-8.9)
[2017-10-19 05:40] LABS: Magnesium 1.9 mg/dL (1.6-2.6); Potassium 4.1 mEq/L (3.5-5.1)
[2017-10-19] MEDS ORDERED: 0.9 % Sodium Chloride 250 ML IVC PRN (08:42)
[2017-10-19] MEDS ORDERED: *HR* Dextrose 50 % in Water (Syg) 50 ML SYRINGE IVP PRN (08:51)
[2017-10-19] MEDS ORDERED: D5% in Water 1,000 ML IVC PRN (08:51)
[2017-10-19] MEDS ORDERED: Dextrose Gel 15 GM/37.5 ML TUBE PO PRN ×2 (08:51)
[2017-10-19] MEDS: ARIPiprazole 10 MG TABLET PO SCH (10:08)
[2017-10-19] MEDS: Gabapentin 100 MG CAPSULE PO SCH ×3 (10:08→23:08)
[2017-10-19] MEDS: Aspirin Enteric Coated 81 MG Tablet PO SCH (10:08)
[2017-10-19] MEDS: Calcium Acetate 667 MG CAPSULE PO SCH ×3 (10:08→17:25)
[2017-10-19] MEDS: Nitroglycerin 0.3 MG PATCH.TD24 TD SCH (10:09)
[2017-10-19] MEDS: Budesonide/Formoterol 160/4.5 MDI IH SCH ×2 (10:33→21:25)
[2017-10-19] MEDS ORDERED: Nitroglycerin 0.4 MG TAB.SUBL SL PRN (10:34)
--- NOTE | 2017-10-19 11:52 | Nephrology Progress Note ---
<Cammie Hare Gumaro - Last Filed: 10/19/17 12:00> Date of Encounter: 10/19/17 Time of Encounter: 11:44 - Assessment and Plan (1) ESRD (end stage renal disease) on dialysis Status: Acute UF today Renal diet-ordered Fluid restriction 1.5 liters/day-ordered Strict I/Os-ordered Plan for HD tomorrow (2) UTI (urinary tract infection) Status: Acute per primary team Patient has an appointment in November with WELFARE CENTRE MANAGER; has reported draining wounds in vaginal/robb area per patient. Very foul vaginal odor noted on recent last hospitalization. Consider WELFARE CENTRE MANAGER consult. If draining wounds in robb-area, may be affecting/altering urinalysis results. Qualifiers: Urinary tract infection type: site unspecified Hematuria presence: with hematuria Qualified Code(s): N39.0 - Urinary tract infection, site not specified; R31.9 - Hematuria, unspecified; R31.9 - Hematuria, unspecified (3) Heel pain, bilateral Status: Acute per primary team Subjective Principal diagnosis: ESRD on dialysis, heal wounds Interval history: Patient seen and examined while on dialysis. States she is doing ok and came into hospital this time for wounds on heels Objective - Vital Signs Vital signs: Vital Signs Temp Pulse Resp BP Pulse Ox 10/19/17 07:20 98.6 F 90 16 121/62 98 10/19/17 05:04 18 94 10/19/17 04:01 98.3 F 96 16 146/70 94 10/18/17 22:57 98.4 F 92 16 142/68 95 10/18/17 21:46 18 96 10/18/17 20:24 98.1 F 83 16 122/58 90 10/18/17 16:58 18 97 10/18/17 16:01 98.5 F 88 17 145/67 97 10/18/17 14:25 98.1 F 18 165/66 10/18/17 14:00 157/81 10/18/17 13:45 166/69 10/18/17 13:30 172/66 10/18/17 13:15 161/68 10/18/17 13:00 188/59 10/18/17 12:45 179/79 10/18/17 12:30 158/71 10/18/17 12:15 157/71 10/18/17 12:00 177/80 01/08/18 11:45 186/84 Intake and Output 10/18/17 10/19/17 10/19/17 23:59 07:59 15:59 Intake Total 240 / 240 Output Total 0 / 0 Balance 240 / 240 Intake: IV Fluids Merrem 500 MG In Water for inj. (sterile) 10 ML @ 200 mls/hr IVP Q24H [facility] Rx#:[id number] Oral 0 / 0 240 / 240 Output: Urine 0 / 0 Other: Meal Breakfast Percent of Meal Consumed 90% Blood Glucose* 181 138 191 - General Appearance General appearance: Present: obese EENT: Present: ATNC, mucous membranes moist, hearing intact, vision intact Neck: Present: supple Respiratory: Present: clear Cardiology: Present: edema, normal S1, normal S2 Gastrointestinal: Present: no tenderness, no guarding, obese Integumentary: Present: warm and dry Neurologic: Present: alert and oriented x3 Psychiatric: Present: mood/affect appropriate, cooperative - Lab 10/19/17 05:10 10/19/17 05:10 Most recent lab results Calcium 9.0 mg/dL (8.6-10.3) 10/19/17 05:10 Magnesium 1.9 mg/dL (1.6-2.6) 10/19/17 05:10 Consult Discharge Plan - Plan Additional Instructions: F/up with PCP in 1-2 weeks F/up with Urology- she missed her appointment with F/up with WELFARE CENTRE MANAGER as scheduled F/up with HD 3 times/week- MWF Referrals: Tristen Quintana MD [Primary Care Provider] - 10/28/17 1:20 pm () Naren Garcia MD [Partnered Physician] - 11/02/17 3:30 pm Prescriptions: Gabapentin [Neurontin] 100 mg PO TID #60 capsule Rosuvastatin [Crestor] 10 mg PO HS #15 tablet <Luma Mendez - Last Filed: 11/22/17 00:15> Date of Encounter: 10/19/17 - Assessment and Plan (1) ESRD (end stage renal disease) on dialysis Status: Chronic (2) Hyponatremia Status: Acute (3) DMII (diabetes mellitus, type 2) Status: Acute Qualifiers: Qualified Code(s): E11.9 - Type 2 diabetes mellitus without complications Objective - Lab 10/21/17 08:40 10/21/17 08:40 Most recent lab results Calcium 9.4 mg/dL (8.6-10.3) 10/21/17 08:40 Magnesium 1.9 mg/dL (1.6-2.6) 10/19/17 05:10 - Attending Attestation I examined this patient and my medical decision-making was reviewed with the Resident Physician/STRAINER CLEANER. I agree with the documented findings, disposition and treatment plan as described except to the extent set forth below. Pt seen and examined in the HD unit today for additional UF, no new complaints. Next HD planned tomorrow. fluid restriction advised. Lytes stable. Hgb stable.
[2017-10-19] MEDS ORDERED: Vancomycin 1 EACH in D5% in Water 250 ML IVPB PRN (12:15)
[2017-10-19] MEDS: *HR* OxyCODONE/APAP 10/325 TABLET PO PRN ×2 (15:12→23:08)
[2017-10-19] MEDS ORDERED: Naloxone 0.4 MG/ML INJ IVP PRN (15:55)
[2017-10-19] MEDS ORDERED: Vancomycin 500 MG in D5% in Water (Mini-Bag+) 100 ML IVPB ONE (16:00)
[2017-10-19] MEDS ORDERED: Vancomycin 500 MG in 0.9 % Sodium Chloride Mini Bag 100 ML IVPB ONE (18:00)
[2017-10-19] MEDS: Meropenem 500 MG in Water for inj. (sterile) 20 ML 10 ML IVP SCH (18:35)
[2017-10-19] MEDS ORDERED: 0.9 % Sodium Chloride 2,000 ML ONE (18:42)
[2017-10-19] MEDS: Ondansetron 4 MG/2 ML VIAL IVP PRN (23:08)
[2017-10-19] MEDS: Insulin DETEMIR 100 UNIT/ML X5UNITS SQ SCH (23:09)
[2017-10-19] MEDS: Miconazole w/zinc oxide&karaya 92 APPL/92 GM TUBE TP SCH (23:15)
[2017-10-20] MEDS: Ipratropium/Albuterol Neb 3 ML IH SCH ×4 (04:13→22:25)
[2017-10-20] MEDS: *HR* Heparin 5,000 UNIT/ML VIAL SQ SCH ×2 (05:33→17:57)
[2017-10-20] MEDS: *HR* OxyCODONE ER (12 HR) 20 MG TABLET PO SCH ×2 (05:33→17:40)
[2017-10-20] MEDS: *HR* OxyCODONE/APAP 10/325 TABLET PO PRN ×2 (05:36→22:08)
[2017-10-20] MEDS ORDERED: Aminoglycoside Consult 1 EACH MC ONE (06:33)
[2017-10-20 07:04] LABS: Calcium 9.2 mg/dL (8.6-10.3); Potassium 4.8 mEq/L (3.5-5.1)
[2017-10-20 07:15] LABS: Basophils # 0.1 K/mcL (0.0-0.2); Basophils % 0.8 %; Eosinophils # 0.4 K/mcL (0.0-0.6); Eosinophils % 3.4 %; Hematocrit 37.5 % (35.3-44.9); Hemoglobin 11.2 g/dL (11.5-15.4); Immature Granulocytes % 0.7 % (0-4); Lymphocytes # 1.7 K/mcL (0.6-4.6); Lymphocytes % 14.6 %; Mean Corpuscular HGB Conc 29.9 g/dL (31.6-35.5); Mean Corpuscular Hemoglobin 24.7 pg (28.0-33.3); Mean Corpuscular Volume 82.8 fL (83.0-100.0); Mean Platelet Volume 10.8 fL (9.4-12.4); Monocytes % 8.7 %; Neutrophils # 8.1 K/mcL (1.6-8.9); Platelet Count 181 K/mcL (140-400); Red Blood Count 4.53 M/mcL (3.82-4.97); Red Cell Distribution Width 20.5 % (11.5-14.5); Segmented Neutrophils % 71.8 %
[2017-10-20] MEDS: ARIPiprazole 10 MG TABLET PO SCH (08:29)
[2017-10-20] MEDS: Calcium Acetate 667 MG CAPSULE PO SCH ×3 (08:29→17:39)
[2017-10-20] MEDS: Gabapentin 100 MG CAPSULE PO SCH ×3 (08:29→22:02)
[2017-10-20] MEDS: Aspirin Enteric Coated 81 MG Tablet PO SCH (08:30)
[2017-10-20] MEDS: Miconazole w/zinc oxide&karaya 92 APPL/92 GM TUBE TP SCH ×2 (08:30→22:29)
[2017-10-20] MEDS: Insulin LISPRO 300 UNITS/3 ML VIAL SQ SCH ×4 (08:34→21:18)
[2017-10-20] MEDS: Insulin DETEMIR 100 UNIT/ML X5UNITS SQ SCH ×2 (08:35→22:08)
[2017-10-20] MEDS ORDERED: 0.9 % Sodium Chloride 1,000 ML PRIME SCH (08:45)
[2017-10-20] MEDS ORDERED: 0.9 % Sodium Chloride 250 ML IVC PRN (08:45)
[2017-10-20] MEDS: Ondansetron 4 MG/2 ML VIAL IVP PRN (09:19)
[2017-10-20] MEDS ORDERED: 0.9 % Sodium Chloride 2,000 ML ONE (10:43)
[2017-10-20] MEDS ORDERED: *HR* Promethazine 25 MG/ML VIAL IVP ONE (11:10)
[2017-10-20] MEDS: Budesonide/Formoterol 160/4.5 MDI IH SCH ×2 (11:22→22:26)
--- NOTE | 2017-10-20 11:36 | Internal Med Progress Note ---
Date of Encounter: 10/19/17 Time of Encounter: 17:40 - Assessment and plan (1) UTI (urinary tract infection) Current Visit: Yes Status: Acute Assessment and plan: Patient noted to have multiple episodes of recurrent UTIs. Urine culture currently grows gram-negative rods. Continue IV meropenem due to history of ESBL Escherichia coli. Patient needs outpatient urology follow-up. CT abdomen shows right perinephric stranding, hydronephrosis and hydroureter with no evidence of stones. Qualifiers: Urinary tract infection type: acute cystitis Hematuria presence: without hematuria Qualified Code(s): N30.00 - Acute cystitis without hematuria (2) Hyperglycemia Current Visit: Yes Status: Acute Assessment and plan: No evidence of DKA. Blood sugars are noted to be improving with a few high readings. Start basal insulin and continue sliding scale insulin. Diabetic diet. (3) HCAP (healthcare-associated pneumonia) Current Visit: Yes Status: Suspected Assessment and plan: Chest x-ray shows right basilar atelectasis versus infiltrate. Continue broad- spectrum IV antibiotics-meropenem and vancomycin. Follow blood cultures. Supportive care and supplemental oxygen. (4) CHF (congestive heart failure) Current Visit: Yes Status: Chronic Qualifiers: Congestive heart failure type: diastolic Congestive heart failure chronicity: chronic Qualified Code(s): I50.32 - Chronic diastolic (congestive ) heart failure (5) Diabetes Current Visit: Yes Status: Chronic Assessment and plan: Plan as above. Qualifiers: Diabetes mellitus type: type 2 Diabetes mellitus complication status: with hyperglycemia Diabetes mellitus alf insulin use: with termite renewal inspector use Qualified Code(s): E11.65 - Type 2 diabetes mellitus with hyperglycemia; Z79.4 - joint terminal attack controller (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 of insulin (6) CAD (coronary artery disease) Current Visit: Yes Status: Chronic Qualifiers: Coronary Disease-Associated Artery/Lesion type: [place] artery [place] vs. transplanted heart: [place]q heart Associated angina: without angina Qualified Code(s): I25.10 - Atherosclerotic heart disease of [place]q coronary artery without angina pectoris (7) COPD (chronic obstructive pulmonary disease) Current Visit: Yes Status: Chronic Qualifiers: COPD type: chronic bronchitis Chronic bronchitis type: simple Qualified Code(s): J41.0 - Simple chronic bronchitis (8) Anemia Current Visit: Yes Status: Chronic Qualifiers: Anemia type: other cause Other causes of anemia: chronic disease, other Qualified Code(s): D63.8 - Anemia in other chronic diseases classified elsewhere (9) ESRD on hemodialysis Current Visit: Yes Status: Chronic Assessment and plan: Nephrology has been consulted for hemodialysis needs. Undergoing dialysis today. (10) HTN (hypertension) Current Visit: Yes Status: Chronic Qualifiers: Hypertension type: essential hypertension Qualified Code(s): I10 - Essential (primary) hypertension (11) Atrial fibrillation Current Visit: Yes Status: Chronic Assessment and plan: Currently rate controlled. Continue beta vera. Not on anticoagulation as outpatient. Qualifiers: Atrial fibrillation type: paroxysmal Qualified Code(s): I48.0 - Paroxysmal atrial fibrillation (12) Decubitus skin ulcer Current Visit: Yes Status: Chronic Assessment and plan: Wound care consulted for bilateral he decubitus ulcers and small sacral decubitus ulcer, noninfected, present on admission. Qualifiers: Pressure ulcer location: heel Pressure ulcer stage: stage 1 Laterality: unspecified laterality Qualified Code(s): L89.601 - Pressure ulcer of unspecified heel, stage 1 - Subjective Interval history: Feels better; improved nausea and vomiting; reports some lower abdominal discomfort and thinks she has vaginal discharge; she is s/p hysterectomy; no fever/chills, diarrhea; poor functional status at baseline; - Constitutional Vitals: Temp Pulse Resp BP Pulse Ox 97.4 F L 75 18 129/62 100 10/20/17 08:05 10/20/17 08:05 10/20/17 08:05 10/20/17 08:05 10/20/17 08:05 General appearance: Present: A&O X 3, answers questions appropriately - Respiratory Respiratory exam: Present: CTAB. Absent: accessory muscle use, rales, rhonchi, wheezes - Cardiovascular Cardiovascular exam: Present: RRR, +S1, +S2. Absent: diastolic murmur, gallop, rubs, systolic murmur - GI/Abdominal GI/Abdominal exam: Present: normal bowel sounds, soft (mild tenderness in lower abdomen and suprapubic area), no peritoneal signs. Absent: distended, tenderness - Extremities Exam Extremities exam: Present: pedal edema, warm, radial pulses palpable and symmetrical. Absent: calf tenderness, cyanotic Additional comments: right heel with boggy dark area, no skin breakdown, stage 1 decubitus left heel s/p excision of eschar per staffing manager small moist pale area in gluteal fold; dry stage 1-2 sacral ulcer - Neurological Exam Neurological exam: Present: CN II-XII intact, oriented X3, no focal deficits, strengths equal and symetr throughout (decreased motor power B/L LE). Absent: pronater drift, facial droop, speech deficit - Skin Skin exam: Present: dry, intact Internal Medicine: Result - Labs CBC & Chem 7: 10/21/17 08:40 10/21/17 08:40 Labs: Short CBC 10/20/17 Range/Units 06:00 WBC 11.3 H (4.3-11.1) K/mcL Hgb 11.2 L (11.5-15.4) g/dL Hct 37.5 (35.3-44.9) % Plt Count 181 (140-400) K/mcL Neutrophils # 8.1 (1.6-8.9) K/mcL BMP 10/20/17 06:00 Sodium 130 L Potassium 4.8 Chloride 92 L Carbon Dioxide 31 H BUN 43 H Creatinine 3.67 H Glucose 277 H Calcium 9.2 - ABG Interpretation ABG results: PT/INR, D-dimer PT 10.5 Seconds (9.4-12.1) 10/18/17 02:50 Consult Discharge Plan - Plan Additional Instructions: F/up with PCP in 1-2 weeks F/up with Urology- she missed her appointment with F/up with ULTIMATE HOOPS SCOREBOARD OPERATOR as scheduled F/up with HD 3 times/week- MWF Referrals: Tristen Quintana MD [Primary Care Provider] - 10/28/17 1:20 pm () Naren Garcia MD [Partnered Physician] - 11/02/17 3:30 pm Prescriptions: Gabapentin [Neurontin] 100 mg PO TID #60 capsule Miconazole w/zinc oxide&karaya [Antifungal Extra Thick] 1 appl TP BID 20 Days tube Rosuvastatin [Crestor] 10 mg PO HS #15 tablet
[2017-10-20] MEDS ORDERED: Insulin DETEMIR 100 UNIT/ML X5UNITS SQ ONE (11:45)
[2017-10-20] MEDS: Ertapenem 500 MG in Water for inj. (sterile) 10 ML IVP SCH (17:40)
[2017-10-20] MEDS ORDERED: Levofloxacin 750 MG/150 ML 750 MG/150 ML BAG IVPB ONE (18:00)
[2017-10-20] MEDS ORDERED: Vancomycin 500 MG in D5% in Water (Mini-Bag+) 100 ML IVPB ONE (18:00)
--- NOTE | 2017-10-20 21:44 | Nephrology Progress Note ---
Date of Encounter: 10/20/17 Time of Encounter: 12:00 - Assessment and Plan (1) ESRD (end stage renal disease) on dialysis Status: Acute Continue HD with UF as tolerated Continue renal diet (2) Hyponatremia Status: Acute Sodium noted low at 130, should improve with HD today Subjective Principal diagnosis: ESRD on dialysis, heal wounds Interval history: Pt seen and examined on HD, does not feel good today but does not elaborate more. Objective - Vital Signs Vital signs: Vital Signs Temp Pulse Resp BP Pulse Ox 10/20/17 20:41 98.5 F 98 20 107/60 96 10/20/17 16:03 98.2 F 90 18 117/62 98 10/20/17 13:18 97.8 F 18 123/78 10/20/17 13:15 128/74 10/20/17 13:00 130/73 10/20/17 12:45 114/69 10/20/17 12:30 122/65 10/20/17 12:15 121/63 10/20/17 12:00 131/76 10/20/17 11:35 169/73 10/20/17 11:30 121/63 10/20/17 11:15 121/63 10/20/17 11:00 145/75 10/20/17 10:45 113/58 10/20/17 10:30 139/57 10/20/17 10:15 112/54 10/20/17 10:00 141/73 10/20/17 09:45 97.8 F 18 136/68 10/20/17 08:05 97.4 F L 75 18 129/62 100 10/20/17 04:33 97.4 F L 79 18 129/73 99 10/20/17 04:13 19 99 10/19/17 23:38 98.2 F 77 17 123/55 96 Intake and Output 10/20/17 10/20/17 10/20/17 07:59 15:59 23:59 Intake Total 0 / 0 1110 / 1110 300 / 300 Output Total 0 / 0 5600 / 5600 Balance 0 / 0 -4490 / -4490 300 / 300 Intake: Oral 0 / 0 510 / 510 300 / 300 Intake, Rinseback and Flushes 600 / 600 Output: Urine 0 / 0 0 / 0 Total Dialysis (HD) Output 5600 / 5600 Other: Meal Breakfast Dinner Percent of Meal Consumed 90% 60% Weight 107.643 kg Blood Glucose* 188 171 Hemodialysis Net Fluid Removed 5000 (mL) Patient Weight 10/20/17 23:59 Weight 107.643 kg - General Appearance General appearance: Present: chronically ill EENT: Present: ATNC, mucous membranes moist Neck: Present: no JVD, supple Respiratory: Present: clear Cardiology: Present: edema (LE bilat), normal S1, normal S2 Dialysis Vascular Access: Arteriovenous Fistula thrill: Yes bruit: Yes Gastrointestinal: Present: no tenderness, no guarding, obese Integumentary: Present: warm and dry Neurologic: Present: no focal deficit Musculoskeletal: Present: no deformities Psychiatric: Present: cooperative - Lab 10/21/17 08:40 10/21/17 08:40 Most recent lab results Calcium 9.2 mg/dL (8.6-10.3) 10/20/17 06:00 Magnesium 1.9 mg/dL (1.6-2.6) 10/19/17 05:10 Consult Discharge Plan - Plan Additional Instructions: F/up with PCP in 1-2 weeks F/up with Urology- she missed her appointment with F/up with CODING ADVISOR as scheduled F/up with HD 3 times/week- MWF Referrals: Tristen Quintana MD [Primary Care Provider] - 10/28/17 1:20 pm () Naren Garcia MD [Partnered Physician] - 11/02/17 3:30 pm Prescriptions: Gabapentin [Neurontin] 100 mg PO TID #60 capsule Rosuvastatin [Crestor] 10 mg PO HS #15 tablet
[2017-10-21] MEDS: Ipratropium/Albuterol Neb 3 ML IH SCH ×4 (04:19→16:19)
[2017-10-21] MEDS: *HR* OxyCODONE ER (12 HR) 20 MG TABLET PO SCH ×2 (06:01→17:20)
[2017-10-21] MEDS: *HR* Heparin 5,000 UNIT/ML VIAL SQ SCH (06:02)
[2017-10-21] MEDS: Calcium Acetate 667 MG CAPSULE PO SCH ×3 (08:44→16:20)
[2017-10-21] MEDS: Aspirin Enteric Coated 81 MG Tablet PO SCH (08:44)
[2017-10-21] MEDS: Insulin DETEMIR 100 UNIT/ML X5UNITS SQ SCH (08:45)
[2017-10-21] MEDS: ARIPiprazole 10 MG TABLET PO SCH (08:45)
[2017-10-21] MEDS: Gabapentin 100 MG CAPSULE PO SCH ×2 (08:45→16:20)
[2017-10-21] MEDS: Insulin LISPRO 300 UNITS/3 ML VIAL SQ SCH ×3 (08:46→16:21)
[2017-10-21] MEDS: Miconazole w/zinc oxide&karaya 92 APPL/92 GM TUBE TP SCH (08:51)
[2017-10-21] MEDS: *HR* OxyCODONE/APAP 10/325 TABLET PO PRN (09:01)
[2017-10-21 09:06] LABS: Hematocrit 37.8 % (35.3-44.9); Hemoglobin 11.6 g/dL (11.5-15.4); Mean Corpuscular HGB Conc 30.7 g/dL (31.6-35.5); Mean Corpuscular Hemoglobin 25.1 pg (28.0-33.3); Mean Corpuscular Volume 81.8 fL (83.0-100.0); Mean Platelet Volume 10.5 fL (9.4-12.4); Platelet Count 195 K/mcL (140-400); Red Blood Count 4.62 M/mcL (3.82-4.97); Red Cell Distribution Width 19.8 % (11.5-14.5)
[2017-10-21 09:19] LABS: Calcium 9.4 mg/dL (8.6-10.3); Potassium 4.8 mEq/L (3.5-5.1)
[2017-10-21] MEDS: Budesonide/Formoterol 160/4.5 MDI IH SCH (10:41)
--- NOTE | 2017-10-21 10:59 | Nephrology Progress Note ---
<HareTaeCammie A - Last Filed: 10/21/17 11:00> Date of Encounter: 10/21/17 Time of Encounter: 10:57 - Assessment and Plan (1) ESRD (end stage renal disease) on dialysis Status: Acute UF today Continue renal diet Continue fluid restriction 1.5 liters/day Continue strict I/Os To be discharged after UF today Plan for HD tomorrow at her [facility] HD [facility] at [facility] (2) UTI (urinary tract infection) Status: Acute per primary team (3) Heel pain, bilateral Status: Acute per primary team Subjective Principal diagnosis: ESRD on dialysis, heal wounds Interval history: Patient seen and examined. Requests some UF again today before discharge. Objective - Vital Signs Vital signs: Vital Signs Temp Pulse Resp BP Pulse Ox 10/21/17 10:45 18 95 10/21/17 07:51 98.3 F 87 17 108/57 96 10/21/17 04:20 16 91 10/21/17 03:43 97.9 F 95 16 108/65 95 10/20/17 23:43 98.3 F 63 20 107/57 95 10/20/17 22:26 16 96 10/20/17 22:17 96 10/20/17 20:41 98.5 F 98 20 107/60 96 10/20/17 16:03 98.2 F 90 18 117/62 98 10/20/17 13:18 97.8 F 18 123/78 10/20/17 13:15 128/74 10/20/17 13:00 130/73 10/20/17 12:45 114/69 10/20/17 12:30 122/65 10/20/17 12:15 121/63 10/20/17 12:00 131/76 10/20/17 11:35 169/73 10/20/17 11:30 121/63 10/20/17 11:15 121/63 10/20/17 11:00 145/75 Intake and Output 10/20/17 10/21/17 10/21/17 23:59 07:59 15:59 Intake Total 300 / 300 60 / 60 Output Total 0 / 0 Balance 300 / 300 60 / 60 Intake: Oral 300 / 300 60 / 60 Output: Urine 0 / 0 Other: Meal Dinner Percent of Meal Consumed 60% Weight 106.197 kg Blood Glucose* 171 195 Patient Weight 10/21/17 23:59 Weight 106.197 kg - General Appearance General appearance: Present: obese EENT: Present: ATNC, mucous membranes moist, hearing intact, vision intact Neck: Present: supple Respiratory: Present: clear Cardiology: Present: edema, normal S1, normal S2 Gastrointestinal: Present: no tenderness, no guarding Integumentary: Present: warm and dry Neurologic: Present: alert and oriented x3 Psychiatric: Present: mood/affect appropriate, cooperative - Lab 10/21/17 08:40 10/21/17 08:40 Most recent lab results Calcium 9.4 mg/dL (8.6-10.3) 10/21/17 08:40 Magnesium 1.9 mg/dL (1.6-2.6) 10/19/17 05:10 Consult Discharge Plan - Plan Additional Instructions: F/up with PCP in 1-2 weeks F/up with Urology- she missed her appointment with F/up with GLOVE WRAPPER as scheduled F/up with HD 3 times/week- MWF Referrals: Tristen Quintana MD [Primary Care Provider] - 10/28/17 1:20 pm () Naren Garcia MD [Partnered Physician] - 11/02/17 3:30 pm Prescriptions: Gabapentin [Neurontin] 100 mg PO TID #60 capsule Rosuvastatin [Crestor] 10 mg PO HS #15 tablet <Luma Mendez - Last Filed: 12/03/17 08:58> Date of Encounter: 10/21/17 - Assessment and Plan (1) ESRD (end stage renal disease) on dialysis Status: Acute (2) Hyponatremia Status: Acute Objective - Lab 10/21/17 08:40 10/21/17 08:40 Most recent lab results Calcium 9.4 mg/dL (8.6-10.3) 10/21/17 08:40 Magnesium 1.9 mg/dL (1.6-2.6) 10/19/17 05:10 - Attending Attestation I examined this patient and my medical decision-making was reviewed with the Resident Physician/AGRICULTURAL AGENT. I agree with the documented findings, disposition and treatment plan as described except to the extent set forth below. Pt seen and examined receiving extra UF, feeling better with no new complaints. PE shows LE edema but improving. Will continue UF with goal of 4-5kg as tolerated.
--- NOTE | 2017-10-21 11:05 | Discharge Summary ---
Date of Encounter: 10/21/17 Time of Encounter: 10:31 - Discharge Diagnosis (1) UTI (urinary tract infection) Priority: Primary Status: Acute Qualifiers: Urinary tract infection type: acute cystitis Hematuria presence: without hematuria Qualified Code(s): N30.00 - Acute cystitis without hematuria (2) Hyperglycemia Priority: Primary Status: Acute (3) HCAP (healthcare-associated pneumonia) Priority: Primary Status: Suspected (4) CHF (congestive heart failure) Priority: Secondary Status: Chronic Qualifiers: Congestive heart failure type: diastolic Congestive heart failure chronicity: chronic Qualified Code(s): I50.32 - Chronic diastolic (congestive ) heart failure (5) Diabetes Priority: Secondary Status: Chronic Qualifiers: Diabetes mellitus type: type 2 Diabetes mellitus complication status: with hyperglycemia Diabetes mellitus snf insulin use: with bed bug exterminator use Qualified Code(s): E11.65 - Type 2 diabetes mellitus with hyperglycemia; Z79.4 - group home (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 of insulin (6) CAD (coronary artery disease) Priority: Secondary Status: Chronic Qualifiers: Coronary Disease-Associated Artery/Lesion type: [place] artery [place] vs. transplanted heart: [place] heart Associated angina: without angina Qualified Code(s): I25.10 - Atherosclerotic heart disease of [place] coronary artery without angina pectoris (7) COPD (chronic obstructive pulmonary disease) Priority: Secondary Status: Chronic Qualifiers: COPD type: chronic bronchitis Chronic bronchitis type: simple Qualified Code(s): J41.0 - Simple chronic bronchitis (8) Anemia Priority: Secondary Status: Suspected Qualifiers: Anemia type: other cause Other causes of anemia: chronic disease, other Qualified Code(s): D63.8 - Anemia in other chronic diseases classified elsewhere (9) ESRD on hemodialysis Priority: Secondary Status: Chronic (10) HTN (hypertension) Priority: Secondary Status: Chronic Qualifiers: Hypertension type: essential hypertension Qualified Code(s): I10 - Essential (primary) hypertension (11) Atrial fibrillation Priority: Secondary Status: Chronic Qualifiers: Atrial fibrillation type: paroxysmal Qualified Code(s): I48.0 - Paroxysmal atrial fibrillation (12) Decubitus skin ulcer Priority: Primary Status: Chronic Qualifiers: Pressure ulcer location: heel Pressure ulcer stage: stage 1 Laterality: unspecified laterality Qualified Code(s): L89.601 - Pressure ulcer of unspecified heel, stage 1 - Discharge Medications Prescriptions: Gabapentin [Neurontin] 100 mg PO TID #60 capsule Rosuvastatin [Crestor] 10 mg PO HS #15 tablet Home Medications: Clopidogrel [Plavix] 75 mg PO DAILY 05/11/15 [History] Omeprazole [PriLOSEC] 20 mg PO BID 05/11/15 [History] Colestipol HCl [Colestid] 1 gm PO BID 06/12/15 [History] Carvedilol 12.5 mg PO BID 10/28/15 [History] Calcium Acetate [Phos-LO] 1,334 mg PO TIDWM 09/06/16 [History] Folic Acid/Vit Bcomp,C [Renal Vitamin Tablet] 0.8 mg PO DAILY 04/15/17 [History] ARIPiprazole [Abilify] 10 mg PO DAILY 09/13/17 [History] Amitriptyline HCl 100 mg PO HS 09/13/17 [History] Aspirin Enteric Coated [Aspirin EC] 81 mg PO DAILY 09/13/17 [History] Budesonide/Formoterol 160/4.5 [Symbicort 160/4.5] 2 puff IH BIDR 09/13/17 [ History] Cholecalciferol (Vitamin D3) [Vitamin D3] 50,000 unit PO TH 09/13/17 [History] Insulin LISPRO [HumaLOG] 20 units SQ TIDAC 09/13/17 [History] Lidocaine/Prilocaine CREAM [Emla] 1 appl TP AD PRN 09/13/17 [History] OxyCODONE ER (12 HR) [OxyCONTIN] 20 mg PO Q12HR 09/13/17 [History] OxyCODONE/APAP 10/325 [Percocet 10/325 MG] 1 tab PO Q6H PRN 09/13/17 [History] Oxygen 2 l NS AD 09/13/17 [History] Sennosides [Senna] 8.6 mg PO BID 09/13/17 [History] Sevelamer [Renvela] 800 mg PO TIDWM 09/13/17 [History] Albuterol Neb [AccuNeb] 0.63 mg IH Q6H PRN 10/18/17 [History] Gabapentin [Neurontin] 100 mg PO TID #60 capsule 10/21/17 [Rx] Insulin Glargine,Hum.rec.anlog [Lantus Solostar] 45 unit SQ BID #0 10/21/17 [Rx] Rosuvastatin [Crestor] 10 mg PO HS #15 tablet 10/21/17 [Rx] Docusate Sodium [Colace] 100 mg PO BID #60 capsule 10/26/17 [Rx] Ertapenem [INVanz] 500 mg IVPB DAILY #8 vial 10/26/17 [Rx] amLODIPine [Norvasc] 5 mg PO DAILY 10/26/17 [History] metOLazone [Zaroxolyn] 1 tab PO DAILY 10/26/17 [History] Allergies/Adverse Reactions: 3 Allergy/AdvReac Type Severity Reaction Status Date / Time No Known Allergies Allergy Verified 10/18/17 02:12 Procedures/tests Complete & Pending: Procedures Performed prior 72 hours Category Date Time Status CT abd pelvis wo no iv no oral [CT] Routine Cat Scan 10/18/17 10:00 Completed Date of admission: 10/18/17 06:32 Primary care physician: Tristen Quintana MD Consults: 10/18/17 09:30 Consult to Dialysis [CONS] ONCE 10/18/17 10:05 Consult to Nephrology [CONS] Routine Consulting Provider: Kidney Olivia/MARCO/SWAPNA/MILLIE Reason for Consult: dialysis patient. Call Completed: Yes 10/18/17 11:21 Consult to Wound Care [CONS] Routine Reason for Consult: Patient of Dr. Lu. Call Completed: Yes 10/18/17 15:54 Consult to Nutrition [CONS] Routine Comment: Consulting Provider: NUTRITION Reason for Dietary Consult: MST Score 10/19/17 08:45 Consult to Dialysis [CONS] ONCE 10/20/17 09:00 Consult to Dialysis [CONS] ONCE Discharging clinician: Jenifer Duarte Anticipated date of discharge: 10/21/17 - Patient Status Disposition: Home Health Service Condition: Good Functional capacity at discharge: uses cane/walker Overall status at discharge: patient is progressing back to baseline - Discharge Instructions Follow Up With: Tristen Quintana MD [Primary Care Provider] - 10/28/17 1:20 pm () Naren Garcia MD [Partnered Physician] - 11/02/17 3:30 pm Additional Instructions: F/up with PCP in 1-2 weeks F/up with Urology- she missed her appointment with F/up with AUTOBODY TECHNICIAN as scheduled F/up with HD 3 times/week- MWF - Diet and Activity Activity: as per physical therapy, wear oxygen at all times Diet: diabetic diet, low fat, low cholesterol, low salt diet, other (renal diet) Hospital course: Ms. Riley is a 62 year old female with the above medical problems, who was admitted with weakness, nausea and vomiting and abdominal pain. She was noted to have hyperglycemia with no e/o DKA or HHSNK state and was started on basal bolus insulin regimen, which was gradually up-titrated with appropriate blood sugar control. CT abdomen/pelvis showed moderate right perinephric stranding, hydronephrosis and hydroureter, without e/o renal stones. Urine culture grew ESBL E.coli and she has been started on IV Ertapenem, with which she is being discharged home. Case was d/w Urology due to recurrent infections with similar MDRO organisms, and recommended outpatient f/up for possible cystoureteroscopy to check for strictures/stones. There has been concern of vaginal discharge, but I could not appreciate any lesions or foul-smelling vaginal discharge, and patient does have an outpatient appointment with AUTOBODY TECHNICIAN in Nov 2017. Pneumonia was suspected from chest XRay results but patient had no other symptoms and this is less likely. 2 sets of blood cultures remained negative. SHe is currently medically stable for discharge with outpatient f/up. [facility] referral completed, including home infusion of IV Ertapenem to complete a 14- day course. - Time Spent with Patient Total time spent providing and/or coordinating discharge services: Greater than 30 minutes (50 min) - Constitutional Vitals: Temp Pulse Resp BP Pulse Ox 98.3 F 87 17 108/57 96 10/21/17 07:51 10/21/17 07:51 10/21/17 07:51 10/21/17 07:51 10/21/17 07:51 General appearance: Present: A&O X 3, answers questions appropriately - Respiratory Respiratory exam: Present: CTAB. Absent: accessory muscle use, rales, rhonchi, wheezes
--- NOTE | 2017-10-21 11:09 | Physician Discharge Referral ---
Home Health/Hosp Referral Info Transfer to: Home Health Attending Provider: Jenifer Duarte Provider in Charge Post Discharge: PCP - Diagnosis (1) UTI (urinary tract infection) Priority: Primary Status: Acute (2) Hyperglycemia Priority: Primary Status: Acute (3) HCAP (healthcare-associated pneumonia) Priority: Primary Status: Acute (4) CHF (congestive heart failure) Priority: Secondary Status: Chronic (5) Diabetes Priority: Secondary Status: Chronic (6) CAD (coronary artery disease) Priority: Secondary Status: Chronic (7) COPD (chronic obstructive pulmonary disease) Priority: Secondary Status: Chronic (8) Anemia Priority: Secondary Status: Chronic (9) ESRD on hemodialysis Priority: Secondary Status: Chronic (10) HTN (hypertension) Priority: Secondary Status: Chronic (11) Atrial fibrillation Priority: Secondary Status: Chronic (12) Decubitus skin ulcer Priority: Primary Status: Chronic - Respiratory Orders Oxygen / L per min (3L/min via [place]) Smoking Cessation: Smoking cessation has been advised. For more information, call the [employer] Quit Line at 4-085-LAIX-NOW. - Diet/Nutrition Diet/Nutrition Orders: Renal, Cardiac, No Concentrated Sweets (diabetic) - Activity Activity Orders: Ambulate, Walker - Services Needed Following services are medically necessary services: Nursing, Physical Therapy, Occupational Therapy, Home Infusion Home Care Orders: Wound care for stage 1 pressure ulcers in B/L heels with special boots and per nurse licensed practical orders Antifungal cream to sacral decubitus, per nurse licensed practical orders - Transfer Medications Prescriptions: Gabapentin [Neurontin] 100 mg PO TID #60 capsule Miconazole w/zinc oxide&karaya [Antifungal Extra Thick] 1 appl TP BID 20 Days tube Rosuvastatin [Crestor] 10 mg PO HS #15 tablet Home Medications: Clopidogrel [Plavix] 75 mg PO DAILY 05/11/15 [History] Omeprazole [PriLOSEC] 20 mg PO BID 05/11/15 [History] Colestipol HCl [Colestid] 1 gm PO BID 06/12/15 [History] Carvedilol 12.5 mg PO BID 10/28/15 [History] Calcium Acetate [Phos-LO] 1,334 mg PO TIDWM 09/06/16 [History] Tiotropium [Spiriva] 18 mcg IH DAILY 01/12/17 [History] Folic Acid/Vit Bcomp,C [Renal Vitamin Tablet] 0.8 mg PO DAILY 04/15/17 [History] ARIPiprazole [Abilify] 10 mg PO DAILY 09/13/17 [History] Amitriptyline HCl 100 mg PO HS 09/13/17 [History] Ammonium Lactate 1 appl TP BID 09/13/17 [History] Aspirin Enteric Coated [Aspirin EC] 81 mg PO DAILY 09/13/17 [History] Budesonide/Formoterol 160/4.5 [Symbicort 160/4.5] 2 puff IH BIDR 09/13/17 [ History] Calcium Acetate [Phos-LO] 667 mg PO BID PRN 09/13/17 [History] Cholecalciferol (Vitamin D3) [Vitamin D3] 50,000 unit PO TH 09/13/17 [History] Insulin LISPRO [HumaLOG] 20 units SQ TIDAC 09/13/17 [History] Lidocaine/Prilocaine CREAM [Emla] 1 appl TP AD PRN 09/13/17 [History] OxyCODONE ER (12 HR) [OxyCONTIN] 20 mg PO Q12HR 09/13/17 [History] OxyCODONE/APAP 10/325 [Percocet 10/325 MG] 1 tab PO Q6H PRN 09/13/17 [History] Oxygen 2 l NS AD 09/13/17 [History] Sennosides [Senna] 8.6 mg PO BID 09/13/17 [History] Sevelamer [Renvela] 800 mg PO TIDWM 09/13/17 [History] Ertapenem [INVanz] 500 mg IVPB DAILY #11 vial 09/16/17 [Rx] Bacitracin OINT PKT [Ak-Tracin] 1 appl TP BID #20 packet 10/06/17 [Rx] Albuterol Neb [AccuNeb] 0.63 mg IH Q6H PRN 10/18/17 [History] Gabapentin [Neurontin] 100 mg PO TID #60 capsule 10/21/17 [Rx] Insulin Glargine,Hum.rec.anlog [Lantus Solostar] 45 unit SQ BID #0 10/21/17 [Rx] Miconazole w/zinc oxide&karaya [Antifungal Extra Thick] 1 appl TP BID 20 Days tube 10/21/17 [Rx] Rosuvastatin [Crestor] 10 mg PO HS #15 tablet 10/21/17 [Rx] Allergies/Adverse Reactions: 3 Allergy/AdvReac Type Severity Reaction Status Date / Time No Known Allergies Allergy Verified 10/18/17 02:12 Certification: Further, I certify that my clinical findings support that this patient is homebound (i.e. absences from home require considerable and taxing effort and are for medical reasons or scientology services or infrequently or short duration when for other reasons) because: Homebound Reason: Patient requires assistance of a person or device to safely leave home, Leaving home requires considerable and taxing effort due to condition, Severity of cardiac or pulmonary status limits activity tolerance Attestation: My signature below is to certify that this patient is under my care and that I, or nurse practitioner, or a physician's regional administrative assistant working with me, has a face-to -face encounter with this patient.
[2017-10-21] MEDS ORDERED: 0.9 % Sodium Chloride 250 ML IVC PRN (11:22)
[2017-10-21] MEDS ORDERED: 0.9 % Sodium Chloride 1,000 ML PRIME SCH (11:30)
[2017-10-21] MEDS ORDERED: *HR* Promethazine 25 MG/ML VIAL IVP ONE (14:04)
[2017-10-21 15:37] VITALS: BP 115/54
[2017-10-21] MEDS: Ertapenem 500 MG in Water for inj. (sterile) 10 ML IVP SCH (17:21)
[2017-10-21] MEDS: Ondansetron 4 MG/2 ML VIAL IVP PRN (17:54)
--- NOTE | 2017-10-21 17:54 | Urology - Consult Note ---
Date of Encounter: 10/21/17 Time of Encounter: 17:52 - Assessment and Plan (1) Hydronephrosis Current Visit: Yes Status: Acute Assessment and plan: I reviewed her recent CT scan and she does have moderate hydronephrosis and hydroureter down to a transition point in her mid to distal ureter. This could be the nidus for her recurrent infections. Stricture after previous stone extraction is possible. There is no obvious stone on the CT scan now. Ultrasound from January did not show hydro-but may be inconclusive. I do not feel she requires urgent urologic intervention. At the same time, I feel this requires further evaluation. The most appropriate therapy would be a cystoscopy retrograde pyelogram diagnostic ureteroscopy and possible stricture dilation if present. We'll plan outpatient management and contact patient with scheduling. Qualifiers: Hydronephrosis type: unspecified Qualified Code(s): N13.30 - Unspecified hydronephrosis (2) ESBL (extended spectrum beta-lactamase) producing bacteria infection Current Visit: No Status: Acute Urology CN:HPI Reason for consult Urology: Hydronephrosis History of present illness: new patient to the urology service. History of end-stage renal disease. Multiple resistant urinary tract infections over the last year. She states it all started after a heart catheter a year ago. This is also when she developed renal failure. She also reports a history of kidney stones. 4-5 episodes. She's had at least one stone extraction on the right side. She describes no right- sided flank pain. She does have symptoms from the urinary tract infections including dysuria and malaise. Recent CT scan shows right hydronephrosis and hydroureter down to the mid to distal ureter. There is a transition point. Ultrasound in January 2017 showed no obvious hydronephrosis. Past Med Surg Social Fam HX - Past Medical History Medical history: arthritis, asthma, atrial fibrillation, CHF, COPD, coronary artery disease, CVA, DVT, diabetes, dialysis, fibromyalgia, GERD, GI bleed, hyperlipidemia, hypertension, kidney stones, migraine, myocardial infarction, osteoporosis, peripheral artery disease, renal disease, other Psychiatric history: anxiety, depression, schizophrenia, previous psychiatric hospitalization, other - Past Surgical History Surgical History: angioplasty/stent, appendectomy, cholecystectomy, coronary bypass (CABG), hysterectomy, knee replacement, other, IVC filter - Social History Smoking Status: Current every day smoker Smokeless Tobacco Status: No Alcohol use: none Drug use: none - Family History Father Living Status: Hx Family Cardiac Disorders: Yes Hx Family Endocrine Disorder: Yes Mother Living Status: Still Living Hx Family Respiratory Disorders: Yes (end stage copd) Medications and Allergies Clopidogrel [Plavix] 75 mg PO DAILY 05/11/15 [History] Omeprazole [PriLOSEC] 20 mg PO BID 05/11/15 [History] Colestipol HCl [Colestid] 1 gm PO BID 06/12/15 [History] Carvedilol 12.5 mg PO BID 10/28/15 [History] Calcium Acetate [Phos-LO] 1,334 mg PO TIDWM 09/06/16 [History] Tiotropium [Spiriva] 18 mcg IH DAILY 01/12/17 [History] Folic Acid/Vit Bcomp,C [Renal Vitamin Tablet] 0.8 mg PO DAILY 04/15/17 [History] ARIPiprazole [Abilify] 10 mg PO DAILY 09/13/17 [History] Amitriptyline HCl 100 mg PO HS 09/13/17 [History] Ammonium Lactate 1 appl TP BID 09/13/17 [History] Aspirin Enteric Coated [Aspirin EC] 81 mg PO DAILY 09/13/17 [History] Budesonide/Formoterol 160/4.5 [Symbicort 160/4.5] 2 puff IH BIDR 09/13/17 [ History] Calcium Acetate [Phos-LO] 667 mg PO BID PRN 09/13/17 [History] Cholecalciferol (Vitamin D3) [Vitamin D3] 50,000 unit PO TH 09/13/17 [History] Insulin LISPRO [HumaLOG] 20 units SQ TIDAC 09/13/17 [History] Lidocaine/Prilocaine CREAM [Emla] 1 appl TP AD PRN 09/13/17 [History] OxyCODONE ER (12 HR) [OxyCONTIN] 20 mg PO Q12HR 09/13/17 [History] OxyCODONE/APAP 10/325 [Percocet 10/325 MG] 1 tab PO Q6H PRN 09/13/17 [History] Oxygen 2 l NS AD 09/13/17 [History] Sennosides [Senna] 8.6 mg PO BID 09/13/17 [History] Sevelamer [Renvela] 800 mg PO TIDWM 09/13/17 [History] Ertapenem [INVanz] 500 mg IVPB DAILY #11 vial 09/16/17 [Rx] Bacitracin OINT PKT [Ak-Tracin] 1 appl TP BID #20 packet 10/06/17 [Rx] Albuterol Neb [AccuNeb] 0.63 mg IH Q6H PRN 10/18/17 [History] Gabapentin [Neurontin] 100 mg PO TID #60 capsule 10/21/17 [Rx] Insulin Glargine,Hum.rec.anlog [Lantus Solostar] 45 unit SQ BID #0 10/21/17 [Rx] Miconazole w/zinc oxide&karaya [Antifungal Extra Thick] 1 appl TP BID 20 Days tube 10/21/17 [Rx] Rosuvastatin [Crestor] 10 mg PO HS #15 tablet 10/21/17 [Rx] 3 Allergy/AdvReac Type Severity Reaction Status Date / Time No Known Allergies Allergy Verified 10/18/17 02:12 Review of Systems - Constitutional fatigue, malaise, weakness, no fever(s) - EENT Nose, mouth and throat: dizziness - Cardiovascular no chest pain - Respiratory no cough - Gastrointestinal abdominal pain, nausea - Genitourinary Genitourinary: dysuria, no flank pain - Musculoskeletal back pain - Integumentary no erythema - Neurological no confusion - Psychiatric no anxiety - Hematologic/Lymphatic no easy bleeding - Allergic/Immunologic no throat swelling Exam Initial Vital Signs Temp Pulse Resp BP Pulse Ox 97.8 F 84 18 159/98 99 10/18/17 02:12 10/18/17 02:12 10/18/17 02:12 10/18/17 02:12 10/18/17 02:12 - General physical appearance Present: no distress, chronically ill - Eyes Present: PERRL, conjunctiva is clear - ENT Present: normal nares. Absent: decreased hearing - Neck Present: no masses, no lymphadenopathy - Respiratory Present: normal respiratory effort - Cardiovascular Cardiovascular exam IM: RRR - Abdomen Abdomen: Present: soft (obese). Absent: suprapubic tenderness - Integumentary Present: no rash - Neurologic Present: normal coordination. Absent: disoriented, confused - Additional Findings Bruising on arms Urology Results - Labs 10/21/17 08:40 10/21/17 08:40 Abnormal lab results MCV 81.8 fL (83.0-100.0) L 10/21/17 08:40 MCH 25.1 pg (28.0-33.3) L 10/21/17 08:40 MCHC 30.7 g/dL (31.6-35.5) L 10/21/17 08:40 RDW 19.8 % (11.5-14.5) H 10/21/17 08:40 VBG pO2 94 mmHg (25-50) H 10/18/17 04:27 Sodium 130 mEq/L (136-145) L 10/21/17 08:40 Chloride 89 mEq/L (98-107) L 10/21/17 08:40 Carbon Dioxide 33 mEq/L (23-29) H 10/21/17 08:40 BUN 43 mg/dL (8-23) H 10/21/17 08:40 Creatinine 3.75 mg/dL (0.60-1.20) H 10/21/17 08:40 Est GFR ( Amer) 15 (> 60) L 10/21/17 08:40 Est GFR (Non-Af Amer) 12 (> 60) L 10/21/17 08:40 Glucose 201 mg/dL (70-105) H 10/21/17 08:40 POC Glucose 195 (58-89) H 10/21/17 07:50 Alkaline Phosphatase 248 Units/L (34-104) H 10/18/17 02:50 Albumin/Globulin Ratio 1.0 (1.1-2.2) L 10/18/17 02:50 Urine Clarity Cloudy (Clear) A 10/18/17 04:05 Urine Protein 30 mg/dL (Neg-Trace) H 10/18/17 04:05 Urine Glucose (UA) >=1000 mg/dL (Normal) H 10/18/17 04:05 Urine Blood Trace (Negative) H 10/18/17 04:05 Ur Leukocyte Esterase Small (Negative) H 10/18/17 04:05 Urine Microscopic RBC 3-5 per hpf (0-3) H 10/18/17 04:05 Urine Microscopic WBC 30-50 per hpf (0-3) H 10/18/17 04:05 Urine Bacteria Many per hpf (None-Few) H 10/18/17 04:05 Ur Culture Indicated? YES (NO) A 10/18/17 04:05 Diabetes panel 10/21/17 Range/Units 08:40 Sodium 130 L (136-145) mEq/L Potassium 4.8 (3.5-5.1) mEq/L Chloride 89 L (98-107) mEq/L Carbon Dioxide 33 H (23-29) mEq/L BUN 43 H (8-23) mg/dL Creatinine 3.75 H (0.60-1.20) mg/dL Glucose 201 H (70-105) mg/dL Calcium 9.4 (8.6-10.3) mg/dL Calcium panel 10/21/17 Range/Units 08:40 Calcium 9.4 (8.6-10.3) mg/dL Pituitary panel 10/21/17 Range/Units 08:40 Sodium 130 L (136-145) mEq/L Potassium 4.8 (3.5-5.1) mEq/L Chloride 89 L (98-107) mEq/L Carbon Dioxide 33 H (23-29) mEq/L BUN 43 H (8-23) mg/dL Creatinine 3.75 H (0.60-1.20) mg/dL Glucose 201 H (70-105) mg/dL Calcium 9.4 (8.6-10.3) mg/dL Adrenal panel 10/21/17 Range/Units 08:40 Sodium 130 L (136-145) mEq/L Potassium 4.8 (3.5-5.1) mEq/L Chloride 89 L (98-107) mEq/L Carbon Dioxide 33 H (23-29) mEq/L BUN 43 H (8-23) mg/dL Creatinine 3.75 H (0.60-1.20) mg/dL Glucose 201 H (70-105) mg/dL Calcium 9.4 (8.6-10.3) mg/dL All other labs normal. Consult Discharge Plan - Plan Additional Instructions: F/up with PCP in 1-2 weeks F/up with Urology- she missed her appointment with F/up with RULING MACHINE SET UP OPERATOR as scheduled F/up with HD 3 times/week- MWF Referrals: Tristen Quintana MD [Primary Care Provider] - 10/28/17 1:20 pm () Naren Garcia MD [Partnered Physician] - 11/02/17 3:30 pm Prescriptions: Gabapentin [Neurontin] 100 mg PO TID #60 capsule Miconazole w/zinc oxide&karaya [Antifungal Extra Thick] 1 appl TP BID 20 Days tube Rosuvastatin [Crestor] 10 mg PO HS #15 tablet
[2017-10-22] MEDS ORDERED: Levofloxacin 500 MG/100 ML 500 MG/100 ML BAG IVPB SCH (18:00)
--- NOTE | 2017-10-25 17:13 | Internal Med Progress Note ---
Date of Encounter: 10/20/17 Time of Encounter: 14:30 (Late entry note) - Assessment and plan (1) UTI (urinary tract infection) Status: Acute Assessment and plan: Patient noted to have multiple episodes of recurrent UTIs. Urine culture currently grows ESBL- E.coli. Will change antibiotics to IV Ertapenem, discontinue Vancomycin. Patient needs outpatient urology follow-up. CT abdomen shows right perinephric stranding, hydronephrosis and hydroureter with no evidence of stones. Qualifiers: Urinary tract infection type: acute cystitis Hematuria presence: without hematuria Qualified Code(s): N30.00 - Acute cystitis without hematuria (2) Hyperglycemia Status: Acute Assessment and plan: No evidence of DKA. Blood sugars continue to be elevated. Will increase Levemir and continue sliding scale insulin. Diabetic diet. (3) HCAP (healthcare-associated pneumonia) Status: Suspected Assessment and plan: Chest x-ray shows right basilar atelectasis versus infiltrate. Continue IV antibiotics-Ertapenem. Blood cultures negative. Supportive care and supplemental oxygen. (4) CHF (congestive heart failure) Status: Chronic Qualifiers: Congestive heart failure type: diastolic Congestive heart failure chronicity: chronic Qualified Code(s): I50.32 - Chronic diastolic (congestive ) heart failure (5) Diabetes Status: Chronic Qualifiers: Diabetes mellitus type: type 2 Diabetes mellitus complication status: with hyperglycemia Diabetes mellitus terminal worker insulin use: with jail use Qualified Code(s): E11.65 - Type 2 diabetes mellitus with hyperglycemia; Z79.4 - tank terminal gauger (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 of insulin (6) CAD (coronary artery disease) Status: Chronic Qualifiers: Coronary Disease-Associated Artery/Lesion type: [place] artery [place] vs. transplanted heart: [place] heart Associated angina: without angina Qualified Code(s): I25.10 - Atherosclerotic heart disease of [place] coronary artery without angina pectoris (7) COPD (chronic obstructive pulmonary disease) Status: Chronic Qualifiers: COPD type: chronic bronchitis Chronic bronchitis type: simple Qualified Code(s): J41.0 - Simple chronic bronchitis (8) Anemia Status: Chronic Qualifiers: Anemia type: other cause Other causes of anemia: chronic disease, other Qualified Code(s): D63.8 - Anemia in other chronic diseases classified elsewhere (9) ESRD on hemodialysis Status: Chronic (10) HTN (hypertension) Status: Chronic Qualifiers: Hypertension type: essential hypertension Qualified Code(s): I10 - Essential (primary) hypertension (11) Atrial fibrillation Status: Chronic Assessment and plan: Currently rate controlled. Continue beta vera. Not on anticoagulation as outpatient. Qualifiers: Atrial fibrillation type: paroxysmal Qualified Code(s): I48.0 - Paroxysmal atrial fibrillation (12) Decubitus skin ulcer Status: Chronic Assessment and plan: Wound care consulted for bilateral heel decubitus ulcers and small sacral decubitus ulcer, noninfected, present on admission. Continue special heel boots and antifungal cream on sacral wound, no discharge; Qualifiers: Pressure ulcer location: heel Pressure ulcer stage: stage 1 Laterality: unspecified laterality Qualified Code(s): L89.601 - Pressure ulcer of unspecified heel, stage 1 - Subjective Interval history: Reports nausea during and after hemodialysis; no vomiting, fever/chills, shortness of breath, chest pain; - Constitutional Vitals: Temp Pulse Resp BP Pulse Ox 98 F 96 18 115/54 92 10/21/17 15:35 10/21/17 15:35 10/21/17 16:19 10/21/17 15:35 10/21/17 16:19 General appearance: Present: A&O X 3, answers questions appropriately - Respiratory Respiratory exam: Present: CTAB. Absent: accessory muscle use, rales, rhonchi, wheezes - Cardiovascular Cardiovascular exam: Present: RRR, +S1, +S2. Absent: diastolic murmur, gallop, rubs, systolic murmur - GI/Abdominal GI/Abdominal exam: Present: normal bowel sounds, soft (obese), no peritoneal signs. Absent: distended, tenderness Internal Medicine: Result - Labs CBC & Chem 7: 10/21/17 08:40 10/21/17 08:40 - ABG Interpretation ABG results: PT/INR, D-dimer PT 10.5 Seconds (9.4-12.1) 10/18/17 02:50 Consult Discharge Plan - Plan Additional Instructions: F/up with PCP in 1-2 weeks F/up with Urology- she missed her appointment with F/up with [facility] as scheduled F/up with HD 3 times/week- MWF Referrals: Tristen Quintana MD [Primary Care Provider] - 10/28/17 1:20 pm () Naren Garcia MD [Partnered Physician] - 11/02/17 3:30 pm Prescriptions: Gabapentin [Neurontin] 100 mg PO TID #60 capsule Miconazole w/zinc oxide&karaya [Antifungal Extra Thick] 1 appl TP BID 20 Days tube Rosuvastatin [Crestor] 10 mg PO HS #15 tablet
== END 2017-10-21 18:18 | disposition home health service (06) ==
LOC: 2ANU 02:09 → EMEROO 02:09 → 2ANU 07:14 → SUATTDRO 08:39
PROVIDERS: ADMIT Internal Medicine; ATTEND Internal Medicine

== ENCOUNTER 2017-10-23 23:36 | Observation (INO) ==
[2017-10-24 00:11] LABS: Basophils # 0.1 K/mcL (0.0-0.2); Eosinophils # 0.3 K/mcL (0.0-0.6); Eosinophils % 2.8 %; Hematocrit 36.3 % (35.3-44.9); Hemoglobin 11.6 g/dL (11.5-15.4); Immature Granulocytes % 1.7 % (0-4); Immature Platelets 3.6 % (1.1-6.1); Lymphocytes # 2.4 K/mcL (0.6-4.6); Lymphocytes % 21.5 %; Mean Corpuscular Hemoglobin 25.4 pg (28.0-33.3); Mean Corpuscular Volume 79.4 fL (83.0-100.0); Mean Platelet Volume 10.7 fL (9.4-12.4); Monocytes # 1.1 K/mcL (0.0-1.3); Neutrophils # 7.1 K/mcL (1.6-8.9); Platelet Count 251 K/mcL (140-400); Red Blood Count 4.57 M/mcL (3.82-4.97); Red Cell Distribution Width 18.4 % (11.5-14.5)
[2017-10-24 00:20] LABS: Bilirubin,Urine Large (Negative); Blood,Urine Large (Negative); Clarity,Urine Turbid (Clear); Color,Urine Red (Yellow); Glucose,Urine (UA) Normal (Normal); Ketones,Urine Trace mg/dL (Negative); Leukocyte Esterase,Urine Moderate (Negative); Nitrite,Urine Positive (Negative); PH,Urine 5.5 pH Units (5.0-8.0); Protein,Urine 100 mg/dL (Neg-Trace); Specific Gravity,Urine 1.027 (1.010-1.025); Urobilinogen,Urine Normal (Normal)
[2017-10-24 00:20] LABS: INR 1.1; Prothrombin Time 11.5 Seconds (9.4-12.1)
[2017-10-24 00:22] LABS: Hyaline Casts,Urine Few per lpf (None-Few); Squamous Epithelial Cell,Urine Many per lpf (None-Few); WBC,Urine TNTC per hpf (0-3)
[2017-10-24 00:30] LABS: Bacteria,Urine Moderate per hpf (None-Few); RBC,Urine TNTC per hpf (0-3); Yeast,Urine Moderate per hpf (None Seen)
[2017-10-24 00:35] LABS: Albumin 3.5 g/dL (3.5-5.7); Albumin/Globulin Ratio 0.9 (1.1-2.2); Bilirubin,Direct 0.1 mg/dL (0.0-0.2); Bilirubin,Indirect 0.4 mg/dL (0.0-1.2); Bilirubin,Total 0.5 mg/dL (0.3-1.0); Calcium 9.3 mg/dL (8.6-10.3); Magnesium 2.4 mg/dL (1.6-2.6); Phosphorous 7.6 mg/dL (2.7-4.5); Potassium 5.1 mEq/L (3.5-5.1); Total Protein 7.4 g/dL (6.4-8.9)
[2017-10-24 00:36] LABS: Globulin 3.9 g/dL (2.4-3.5)
[2017-10-24 00:41] LABS: Anisocytosis 1+ (Not Present); Microcytosis Present (Not Present); Platelet Estimate Normal (Normal); Reactive Lymphocytes Present (Not Present)
[2017-10-24] MEDS ORDERED: Ondansetron 4 MG/2 ML VIAL IVP ONE (01:06)
[2017-10-24] MEDS ORDERED: 0.9 % Sodium Chloride 500 ML IVC ONE ×2 (01:06→02:59)
[2017-10-24] MEDS ORDERED: Ondansetron 4 MG/2 ML VIAL ONE (01:21)
[2017-10-24 01:29] LABS: VBG HCO3 27 mEq/L (21-27); VBG PCO2 44 mmHg (41-51); VBG PH 7.39 pH Units (7.32-7.42); VBG PO2 86 mmHg (25-50)
[2017-10-24] MEDS ORDERED: *HR* HYDROmorphone (PF) 1 MG/ML SYRINGE IVP ONE (01:43)
[2017-10-24] MEDS ORDERED: Piperacillin/Tazobactam 3.375 GM in D5% in Water (Mini-Bag+) 100 ML IVPB ONE (03:00)
[2017-10-24] MEDS ORDERED: *HR* Dextrose 50 % in Water (Syg) 50 ML SYRINGE IVP PRN ×2 (03:02→04:22)
[2017-10-24] MEDS ORDERED: Insulin Human Regular 100 UNIT in 0.9 % Sodium Chloride 100 ML IVC SCH (03:15)
--- NOTE | 2017-10-24 03:16 | Emergency Department Note ---
START Narrative - START START: I examined this patient and my medical decision-making was reviewed with the Resident Physician. I agree with the documented findings, disposition and treatment plan as described except to the extent set forth below. Urinary symptoms and possible vaginal bleeding with stable H and H. No abd pain. WE can not get transvaginal ultrasound tonight as she does not meet criteria for emergent ultrasound. She has had no trauma or bleeding since arrival. CT scan shows no acute findings. Plan to admit for OB consultation and treatment of UTI. No indication for emergent OB consult from the er given stable H and H and no current bleeding. She has non peritoneal abd examination. Will rx UTI, blood glucose and elevated cr. No evidence of DKA at this time.
--- NOTE | 2017-10-24 03:19 | Emergency Department Note ---
Disposition Clinical Impression: Hyperglycemia, Hyponatremia UTI (urinary tract infection) Qualifiers: Urinary tract infection type: site unspecified Hematuria presence: with hematuria Qualified Code(s): N39.0 - Urinary tract infection, site not specified ; R31.9 - Hematuria, unspecified; R31.9 - Hematuria, unspecified Pneumonia Qualifiers: Pneumonia type: due to unspecified organism Laterality: unspecified laterality Lung location: unspecified part of lung Qualified Code(s): J18.9 - Pneumonia, unspecified organism Disposition: Admitted As Inpatient Condition: Good Referrals: NONE,PCP [Primary Care Provider] - General Adult HPI - General Chief complaint: ED Urogenital-Female Stated complaint: Vag Bleed/UTI Time Seen by Provider: 10/23/17 23:44 Source: patient Mode of arrival: ambulatory Limitations: no limitations Nursing Notes Reviewed: Yes Vital Signs Reviewed: Yes - History of Present Illness HPI Narrative: Patient presents to the emergency department by EMS for evaluation of abdominal pain, nausea, vomiting, concerns for vaginal bleeding, shortness of breath, decreased urine output. Patient states that she was recently admitted to the hospital and sent home on IV antibiotics. She has been getting these antibiotics once a day. She does not know the name of these antibiotics. Patient states that the abdominal pain started earlier today with worsening of the nausea and vomiting. Patient describes generalized abdominal discomfort with tenderness to palpation over the suprapubic region. She her vaginal bleeding she complains of pain is in her underwear. She states that it is not with bowel movements. On exam there is irritation but there is no specific cause for bleeding. The patient has had a hysterectomy. The patient does have coarse lung sounds laterally. She is diabetic with dialysis on Wednesday and Wednesday and follows with Dr. Rivers. He also has a sacral decubitus on the back. No specific. Drainage was noted. The patient will undergo a broad workup including back for DKA. Repeat CT scan will be performed to evaluate for acute change. The patient is also complaining of lower back pain. This pain likely being secondary to her sacral decubitus. Pain Scale: 0 - Related Data Home Medications Medication Instructions Recorded Confirmed Clopidogrel [Plavix] 75 mg PO DAILY 05/11/15 10/18/17 Omeprazole [PriLOSEC] 20 mg PO BID 05/11/15 10/18/17 Colestipol HCl [Colestid] 1 gm PO BID 06/12/15 10/18/17 Carvedilol 12.5 mg PO BID 10/28/15 10/18/17 Calcium Acetate [Phos-LO] 1,334 mg PO TIDWM 09/06/16 10/18/17 Tiotropium [Spiriva] 18 mcg IH DAILY 01/12/17 10/18/17 Folic Acid/Vit Bcomp,C [Renal 0.8 mg PO DAILY 04/15/17 10/18/17 Vitamin Tablet] ARIPiprazole [Abilify] 10 mg PO DAILY 09/13/17 10/18/17 Amitriptyline HCl 100 mg PO HS 09/13/17 10/18/17 Ammonium Lactate 1 appl TP BID 09/13/17 10/18/17 Aspirin Enteric Coated [Aspirin EC] 81 mg PO DAILY 09/13/17 10/18/17 Budesonide/Formoterol 160/4.5 2 puff IH BIDR 09/13/17 10/18/17 [Symbicort 160/4.5] Calcium Acetate [Phos-LO] 667 mg PO BID PRN 09/13/17 10/18/17 Cholecalciferol (Vitamin D3) 50,000 unit PO TH 09/13/17 10/18/17 [Vitamin D3] Insulin LISPRO [HumaLOG] 20 units SQ TIDAC 09/13/17 10/18/17 Lidocaine/Prilocaine CREAM [Emla] 1 appl TP AD PRN 09/13/17 10/18/17 OxyCODONE ER (12 HR) [OxyCONTIN] 20 mg PO Q12HR 09/13/17 10/18/17 OxyCODONE/APAP 10/325 [Percocet 1 tab PO Q6H PRN 09/13/17 10/18/17 10/325 MG] Oxygen 2 l NS AD 09/13/17 10/18/17 Sennosides [Senna] 8.6 mg PO BID 09/13/17 10/18/17 Sevelamer [Renvela] 800 mg PO TIDWM 09/13/17 10/18/17 Albuterol Neb [AccuNeb] 0.63 mg IH Q6H PRN 10/18/17 10/18/17 Previous Rx's Medication Instructions Recorded Ertapenem [INVanz] 500 mg IVPB DAILY #11 vial 09/16/17 Bacitracin OINT PKT [Ak-Tracin] 1 appl TP BID #20 packet 10/06/17 Gabapentin [Neurontin] 100 mg PO TID #60 capsule 10/21/17 Insulin Glargine,Hum.rec.anlog 45 unit SQ BID #0 10/21/17 [Lantus Solostar] Miconazole w/zinc oxide&karaya 1 appl TP BID 20 Days tube 10/21/17 [Antifungal Extra Thick] Rosuvastatin [Crestor] 10 mg PO HS #15 tablet 10/21/17 Allergies Allergy/AdvReac Type Severity Reaction Status Date / Time No Known Allergies Allergy Verified 10/18/17 02:12 Review of Systems: CONSTITUTIONAL: Fatigue, chills No weight loss, fever HEENT: Eyes: No visual changes. Ears, Nose, Throat: No hearing loss, difficulty talking or unable to swallow. SKIN: No rash or itching. CARDIOVASCULAR: No chest pain, chest pressure or chest discomfort. No palpitations or edema. RESPIRATORY: No shortness of breath, cough or sputum. GASTROINTESTINAL: Abdominal pain with nausea and vomiting. GENITOURINARY: Decreased urination No burning on urination or hematuria. NEUROLOGICAL: No headache, dizziness, syncope, paralysis, ataxia, numbness or tingling in the extremities. No change in bowel or bladder control. MUSCULOSKELETAL: Back pain No muscle pain, joint pain or stiffness. Past Medical History - Past Medical History Medical history: Reports: arthritis, asthma, atrial fibrillation, CHF, COPD, coronary artery disease, CVA, DVT, diabetes, dialysis, fibromyalgia, GERD, GI bleed, hyperlipidemia, hypertension, kidney stones, migraine, myocardial infarction, osteoporosis, peripheral artery disease, renal disease, other Surgical history: Reports: angioplasty/stent, appendectomy, cholecystectomy, coronary bypass (CABG), hysterectomy, knee replacement, other, IVC filter Psychiatric history: Reports: anxiety, depression, schizophrenia, previous psychiatric hospitalization, other HAND 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 Extremities: Chronic skin changes No peripheral edema or extremity lymphadenopathy Skin: Sacral redness consistent with previous decubitus Normal temperature; no rash, ulcers or lesions Psych: Appropriate mood and affect Neuro: alert and oriented to person, place and time; no focal deficit - General General appearance: alert Course - Reevaluation(s) Reevaluation #1: On reevaluation of the patient's patient is requiring multiple doses of antiemetics. Patient is hyperglycemic and hyponatremic. CT of the abdomen does not show any specific change. The patient does have known UTI with worsening urinalysis. Patient's chest x-ray concerning for infection. Patient is dialysis patient with decreased urinary output she normally urinates twice a day and has not urinated over the last 24 hours. Patient was given initial small fluid bolus. Patient does have now abated lactate. Repeat bolus given. The patient be placed on insulin drip secondary to her hyperglycemia associated nausea and vomiting. This patient will will require significant evaluation and management in the hospital. We will discuss with the admitting team in regards to further management. Due to the patient's infections she was placed on broad- spectrum antibiotics which include Zosyn. - Consultations Consultation #1: Discussed with Dr Marc. Pt accepted for admission. Vital Signs Temperature 98.4 F 10/23/17 23:39 Pulse Rate 89 10/23/17 23:39 Respiratory Rate 20 10/23/17 23:39 Blood Pressure 125/74 10/23/17 23:39 O2 Sat by Pulse Oximetry 97 10/23/17 23:39 Temperature 98.4 F 10/23/17 23:39 Pulse Rate 88 10/24/17 02:59 Respiratory Rate 20 10/24/17 02:59 Blood Pressure 150/71 10/24/17 02:59 O2 Sat by Pulse Oximetry 98 10/24/17 02:59 Oxygen Delivery Oxygen Delivery Nasal Cannula Medical Decision Making - Medical Records Medical records reviewed: Yes I reviewed the patient's medical records. - Lab Data Lab results reviewed: Yes I reviewed the patient's lab results. Result diagrams: 10/23/17 23:50 10/23/17 23:50 Lab Results 10/23/17 10/23/17 10/23/17 Range/Units 23:47 23:50 23:50 WBC 11.2 H (4.3-11.1) K/mcL RBC 4.57 (3.82-4.97) M/mcL Hgb 11.6 (11.5-15.4) g/dL Hct 36.3 (35.3-44.9) % MCV 79.4 L (83.0-100.0) fL MCH 25.4 L (28.0-33.3) pg MCHC 32.0 (31.6-35.5) g/dL RDW 18.4 H (11.5-14.5) % Plt Count 251 (140-400) K/mcL MPV 10.7 (9.4-12.4) fL Immature Gran % 1.7 (0-4) % Seg Neutrophils % 63.0 % Lymphocytes % 21.5 % Monocytes % 10.0 % Eosinophils % 2.8 % Basophils % 1.0 % Neutrophils # 7.1 (1.6-8.9) K/mcL Lymphocytes # 2.4 (0.6-4.6) K/mcL Monocytes # 1.1 (0.0-1.3) K/mcL Eosinophils # 0.3 (0.0-0.6) K/mcL Basophils # 0.1 (0.0-0.2) K/mcL Reactive Lymphocytes Present A (Not Present) Platelet Estimate Normal (Normal) Immature Plt Fraction 3.6 (1.1-6.1) % Anisocytosis 1+ A (Not Present) Microcytosis Present A (Not Present) PT 11.5 (9.4-12.1) Seconds INR 1.1 VBG pH (7.32-7.42) pH Units VBG pCO2 (41-51) mmHg VBG pO2 (25-50) mmHg VBG HCO3 (21-27) mEq/L Sodium (136-145) mEq/L Potassium (3.5-5.1) mEq/L Chloride (98-107) mEq/L Carbon Dioxide (23-29) mEq/L BUN (8-23) mg/dL Creatinine (0.60-1.20) mg/dL Est GFR ( Amer) (> 60) Est GFR (Non-Af Amer) (> 60) BUN/Creatinine Ratio (6-26) Glucose (70-105) mg/dL Calculated Osmolality (280-300) Lactic Acid (0.5-2.2) mmol/L Calcium (8.6-10.3) mg/dL Phosphorus (2.7-4.5) mg/dL Magnesium (1.6-2.6) mg/dL Total Bilirubin (0.3-1.0) mg/dL Direct Bilirubin (0.0-0.2) mg/dL Indirect Bilirubin (0.0-1.2) mg/dL AST (13-39) Units/L ALT (7-52) Units/L Alkaline Phosphatase (34-104) Units/L Troponin I (< 0.04) ng/mL Serum Total Protein (6.4-8.9) g/dL Albumin (3.5-5.7) g/dL Globulin (2.4-3.5) g/dL Albumin/Globulin Ratio (1.1-2.2) Lipase (11-82) Units/L Beta-Hydroxybutyric Acd (0.02-0.27) mmol/L Urine Color Red A (Yellow) Urine Clarity Turbid A (Clear) Urine pH 5.5 (5.0-8.0) pH Units Ur Specific [place] 1.027 H (1.010-1.025) Urine Protein 100 H (Neg-Trace) mg/dL Urine Glucose (UA) Normal (Normal) mg/dL Urine Ketones Trace H (Negative) mg/dL Urine Blood Large H (Negative) Urine Nitrite Positive A (Negative) Urine Bilirubin Large H (Negative) Urine Urobilinogen Normal (Normal) mg/dL Ur Leukocyte Esterase Moderate H (Negative) Urine Microscopic RBC TNTC H (0-3) per hpf Urine Microscopic WBC TNTC H (0-3) per hpf Ur Squamous Epith Cells Many H (None-Few) per lpf Urine Bacteria Moderate H (None-Few) per hpf Hyaline Casts Few (None-Few) per lpf Urine Yeast Moderate H (None Seen) per hpf Ur Culture Indicated? NO. (NO) 10/23/17 10/23/17 10/23/17 Range/Units 23:50 23:50 23:50 WBC (4.3-11.1) K/mcL RBC (3.82-4.97) M/mcL Hgb (11.5-15.4) g/dL Hct (35.3-44.9) % MCV (83.0-100.0) fL MCH (28.0-33.3) pg MCHC (31.6-35.5) g/dL RDW (11.5-14.5) % Plt Count (140-400) K/mcL MPV (9.4-12.4) fL Immature Gran % (0-4) % Seg Neutrophils % % Lymphocytes % % Monocytes % % Eosinophils % % Basophils % % Neutrophils # (1.6-8.9) K/mcL Lymphocytes # (0.6-4.6) K/mcL Monocytes # (0.0-1.3) K/mcL Eosinophils # (0.0-0.6) K/mcL Basophils # (0.0-0.2) K/mcL Reactive Lymphocytes (Not Present) Platelet Estimate (Normal) Immature Plt Fraction (1.1-6.1) % Anisocytosis (Not Present) Microcytosis (Not Present) PT (9.4-12.1) Seconds INR VBG pH (7.32-7.42) pH Units VBG pCO2 (41-51) mmHg VBG pO2 (25-50) mmHg VBG HCO3 (21-27) mEq/L Sodium 124 L (136-145) mEq/L Potassium 5.1 (3.5-5.1) mEq/L Chloride 84 L (98-107) mEq/L Carbon Dioxide 24 (23-29) mEq/L BUN 71 H (8-23) mg/dL Creatinine 5.38 H (0.60-1.20) mg/dL Est GFR ( Amer) 10 L (> 60) Est GFR (Non-Af Amer) 8 L (> 60) BUN/Creatinine Ratio 13 (6-26) Glucose 567 H* (70-105) mg/dL Calculated Osmolality 305 H (280-300) Lactic Acid 2.4 H (0.5-2.2) mmol/L Calcium 9.3 (8.6-10.3) mg/dL Phosphorus 7.6 H (2.7-4.5) mg/dL Magnesium 2.4 (1.6-2.6) mg/dL Total Bilirubin 0.5 (0.3-1.0) mg/dL Direct Bilirubin 0.1 (0.0-0.2) mg/dL Indirect Bilirubin 0.4 (0.0-1.2) mg/dL AST 13 (13-39) Units/L ALT 13 (7-52) Units/L Alkaline Phosphatase 261 H (34-104) Units/L Troponin I < 0.03 (< 0.04) ng/mL Serum Total Protein 7.4 (6.4-8.9) g/dL Albumin 3.5 (3.5-5.7) g/dL Globulin 3.9 H (2.4-3.5) g/dL Albumin/Globulin Ratio 0.9 L (1.1-2.2) Lipase 18 (11-82) Units/L Beta-Hydroxybutyric Acd (0.02-0.27) mmol/L Urine Color (Yellow) Urine Clarity (Clear) Urine pH (5.0-8.0) pH Units Ur Specific [place] (1.010-1.025) Urine Protein (Neg-Trace) mg/dL Urine Glucose (UA) (Normal) mg/dL Urine Ketones (Negative) mg/dL Urine Blood (Negative) Urine Nitrite (Negative) Urine Bilirubin (Negative) Urine Urobilinogen (Normal) mg/dL Ur Leukocyte Esterase (Negative) Urine Microscopic RBC (0-3) per hpf Urine Microscopic WBC (0-3) per hpf Ur Squamous Epith Cells (None-Few) per lpf Urine Bacteria (None-Few) per hpf Hyaline Casts (None-Few) per lpf Urine Yeast (None Seen) per hpf Ur Culture Indicated? (NO) 18 10/24/17 Range/Units 01:17 01:27 WBC (4.3-11.1) K/mcL RBC (3.82-4.97) M/mcL Hgb (11.5-15.4) g/dL Hct (35.3-44.9) % MCV (83.0-100.0) fL MCH (28.0-33.3) pg MCHC (31.6-35.5) g/dL RDW (11.5-14.5) % Plt Count (140-400) K/mcL MPV (9.4-12.4) fL Immature Gran % (0-4) % Seg Neutrophils % % Lymphocytes % % Monocytes % % Eosinophils % % Basophils % % Neutrophils # (1.6-8.9) K/mcL Lymphocytes # (0.6-4.6) K/mcL Monocytes # (0.0-1.3) K/mcL Eosinophils # (0.0-0.6) K/mcL Basophils # (0.0-0.2) K/mcL Reactive Lymphocytes (Not Present) Platelet Estimate (Normal) Immature Plt Fraction (1.1-6.1) % Anisocytosis (Not Present) Microcytosis (Not Present) PT (9.4-12.1) Seconds INR VBG pH 7.39 (7.32-7.42) pH Units VBG pCO2 44 (41-51) mmHg VBG pO2 86 H (25-50) mmHg VBG HCO3 27 (21-27) mEq/L Sodium (136-145) mEq/L Potassium (3.5-5.1) mEq/L Chloride (98-107) mEq/L Carbon Dioxide (23-29) mEq/L BUN (8-23) mg/dL Creatinine (0.60-1.20) mg/dL Est GFR ( Amer) (> 60) Est GFR (Non-Af Amer) (> 60) BUN/Creatinine Ratio (6-26) Glucose (70-105) mg/dL Calculated Osmolality (280-300) Lactic Acid (0.5-2.2) mmol/L Calcium (8.6-10.3) mg/dL Phosphorus (2.7-4.5) mg/dL Magnesium (1.6-2.6) mg/dL Total Bilirubin (0.3-1.0) mg/dL Direct Bilirubin (0.0-0.2) mg/dL Indirect Bilirubin (0.0-1.2) mg/dL AST (13-39) Units/L ALT (7-52) Units/L Alkaline Phosphatase (34-104) Units/L Troponin I (< 0.04) ng/mL Serum Total Protein (6.4-8.9) g/dL Albumin (3.5-5.7) g/dL Globulin (2.4-3.5) g/dL Albumin/Globulin Ratio (1.1-2.2) Lipase (11-82) Units/L Beta-Hydroxybutyric Acd 0.28 H (0.02-0.27) mmol/L Urine Color (Yellow) Urine Clarity (Clear) Urine pH (5.0-8.0) pH Units Ur Specific [place] (1.010-1.025) Urine Protein (Neg-Trace) mg/dL Urine Glucose (UA) (Normal) mg/dL Urine Ketones (Negative) mg/dL Urine Blood (Negative) Urine Nitrite (Negative) Urine Bilirubin (Negative) Urine Urobilinogen (Normal) mg/dL Ur Leukocyte Esterase (Negative) Urine Microscopic RBC (0-3) per hpf Urine Microscopic WBC (0-3) per hpf Ur Squamous Epith Cells (None-Few) per lpf Urine Bacteria (None-Few) per hpf Hyaline Casts (None-Few) per lpf Urine Yeast (None Seen) per hpf Ur Culture Indicated? (NO) - Radiology Data Radiology results reviewed: Yes I reviewed the patient's radiology results. - EKG Data EKG #1 EKG attestation: Yes I reviewed and interpreted this EKG. EKG results narrative: EKG shows sinus rhythm with occasional PVCs. Ventricular rate of 86. WA interval 184. QRS 98. QTC 427. No significant ST elevations or depressions.
[2017-10-24] MEDS ORDERED: Piperacillin/Tazobactam 3.375 GM in Water for inj. (sterile) 20 ML 20 ML IVPB ONE (03:30)
--- NOTE | 2017-10-24 04:11 | Internal Med History&Physical ---
Date of Encounter: 10/24/17 Time of Encounter: 04:06 Assessment and Plan (1) Lower abdominal pain Current visit: Yes Status: Acute uncertain whether lower abdo pain related to 1) recurrent UTI vs. 2) some constipation or both UA in the ED this visit appears grossly contaminated and is not useful for clinical decision making. She had been treated for UTI during her last admission before being discharged on 10/21. She also probably has degree of colonization. Although she is ESRD on HD, she still appears to make decent amount of urine and thus is predisposed to recurrent UTI. Her hydro-ureter also risk factor per urol eval recently Hold further antibiotics. Repeat set of UA and urine cx. Consider ID to weigh in if clinical picture confusing on repeat studies Blood in panties - uncertain etiology ? Need outpatient follow up with AUDOGRAPH OPERATOR. Apparently had hysterectomy prior. Will need AUDOGRAPH OPERATOR eval to ensure no remnant and r /o food preparation worker source (2) Constipation Current visit: No Status: Acute add colace, miralax, MOM continue senna Qualifiers: Constipation type: unspecified constipation type Qualified Code(s): K59.00 - Constipation, unspecified (3) Sacral ulcer Current visit: No Status: Acute wound care Qualifiers: Non-pressure ulcer stage: unspecified non-pressure ulcer stage Qualified Code(s): L98.429 - Non-pressure chronic ulcer of back with unspecified severity (4) ESRD on hemodialysis Current visit: No Status: Chronic consult Dr Rivers. Continue MWF HD HD may correct Na reading (5) Hydroureter on right Current visit: Yes Status: Acute hydroureter-nephrosis. Seen by urol last visit. Outpatient urol eval (6) DMII (diabetes mellitus, type 2) Current visit: Yes Status: Acute poor control. Adjust insulin accordingly suspect limited compliance with diet at home check a1c Qualifiers: Qualified Code(s): E11.9 - Type 2 diabetes mellitus without complications; Z79.4 - watermelon inspector (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 of insulin; Z79.4 - watermelon inspector (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 of insulin; Z79.4 - watermelon inspector (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 of insulin; Z79.4 - watermelon inspector (current ) use of insulin Internal Medicine - H&P: HPI Chief complaint: Multiple complaints to include blood all over panties, lower abdo discomfor History of present illness: Ms. Riley is a 62 year old female with multiple co-morbidities who return to the hospital after being discharged on 10/21/2017 with multiple non-specific symptoms of 1) "blood all over panties", 2) lower abdo discomfort with emesis and subjective fevers, constipation. She tells me that she didn't feel better since discharged 3 days ago. 1) "blood all over panties" - reports that she felt like peeing tonight and when she looked, there were dark brown blood all over panties. She has a reported hx of hysterectomy and has an outpatient appt to visit with AUDOGRAPH OPERATOR from last discharge 2) lower abdo discomfort with emesis and subjective fevers, constipation - reports LE abdo pain. She continues to make urine and going to urinate several times a time. On review, she also tells me that she is constipated and had no BM in the last week. She usually goes once every other day. At baseline, she lives alone , uses a walker and has a home designer that visits. She is ESRD with MWF HD with Dr Rivers. She also appears to be making some urine and urinates moderate amount of time and has a hx of recurrent UTI to include ESBL species. She has has IDDM, P.AFib, COPD, HTN, CHF per record. She also has decub ulcer. CT/CT abd pelvis wo no iv no oral IMPRESSION: 1. Moderate right hydroureteronephrosis. No obstructive calculus identified. Findings suggestive of recently passed renal stone or pyelonephritis 2. 4 cm lobular cystic lesion in the right mid to upper kidney is unchanged in size. Assessment is limited without contrast XR/XR chest 1V portable IMPRESSION: Diffuse airway thickening suggests inflammation, such as that seen with asthma, bronchitis, smoking or aspiration. No consolidative pneumonia. Past Med Surg Social Fam HX - Past Medical History Medical history: arthritis, asthma, atrial fibrillation, CHF, COPD, coronary artery disease, CVA, DVT, diabetes, dialysis, fibromyalgia, GERD, GI bleed, hyperlipidemia, hypertension, kidney stones, migraine, myocardial infarction, osteoporosis, peripheral artery disease, renal disease, other Psychiatric history: anxiety, depression, schizophrenia, previous psychiatric hospitalization, other - Past Surgical History Surgical History: angioplasty/stent, appendectomy, cholecystectomy, coronary bypass (CABG), hysterectomy, knee replacement, other, IVC filter - Social History Smoking Status: Current every day smoker Smokeless Tobacco Status: No Alcohol use: none Drug use: none - Family History Father Living Status: Hx Family Cardiac Disorders: Yes Hx Family Endocrine Disorder: Yes Mother Living Status: Still Living Hx Family Respiratory Disorders: Yes (end stage copd) Internal Medicine - H&P: Meds Clopidogrel [Plavix] 75 mg PO DAILY 05/11/15 [History] Omeprazole [PriLOSEC] 20 mg PO BID 05/11/15 [History] Colestipol HCl [Colestid] 1 gm PO BID 06/12/15 [History] Carvedilol 12.5 mg PO BID 10/28/15 [History] Calcium Acetate [Phos-LO] 1,334 mg PO TIDWM 09/06/16 [History] Tiotropium [Spiriva] 18 mcg IH DAILY 01/12/17 [History] Folic Acid/Vit Bcomp,C [Renal Vitamin Tablet] 0.8 mg PO DAILY 04/15/17 [History] ARIPiprazole [Abilify] 10 mg PO DAILY 09/13/17 [History] Amitriptyline HCl 100 mg PO HS 09/13/17 [History] Ammonium Lactate 1 appl TP BID 09/13/17 [History] Aspirin Enteric Coated [Aspirin EC] 81 mg PO DAILY 09/13/17 [History] Budesonide/Formoterol 160/4.5 [Symbicort 160/4.5] 2 puff IH BIDR 09/13/17 [ History] Calcium Acetate [Phos-LO] 667 mg PO BID PRN 09/13/17 [History] Cholecalciferol (Vitamin D3) [Vitamin D3] 50,000 unit PO TH 09/13/17 [History] Insulin LISPRO [HumaLOG] 20 units SQ TIDAC 09/13/17 [History] Lidocaine/Prilocaine CREAM [Emla] 1 appl TP AD PRN 09/13/17 [History] OxyCODONE ER (12 HR) [OxyCONTIN] 20 mg PO Q12HR 09/13/17 [History] OxyCODONE/APAP 10/325 [Percocet 10/325 MG] 1 tab PO Q6H PRN 09/13/17 [History] Oxygen 2 l NS AD 09/13/17 [History] Sennosides [Senna] 8.6 mg PO BID 09/13/17 [History] Sevelamer [Renvela] 800 mg PO TIDWM 09/13/17 [History] Bacitracin OINT PKT [Ak-Tracin] 1 appl TP BID #20 packet 10/06/17 [Rx] Albuterol Neb [AccuNeb] 0.63 mg IH Q6H PRN 10/18/17 [History] Gabapentin [Neurontin] 100 mg PO TID #60 capsule 10/21/17 [Rx] Insulin Glargine,Hum.rec.anlog [Lantus Solostar] 45 unit SQ BID #0 10/21/17 [Rx] Miconazole w/zinc oxide&karaya [Antifungal Extra Thick] 1 appl TP BID 20 Days tube 10/21/17 [Rx] Rosuvastatin [Crestor] 10 mg PO HS #15 tablet 10/21/17 [Rx] 3 Allergy/AdvReac Type Severity Reaction Status Date / Time No Known Allergies Allergy Verified 10/18/17 02:12 All Systems PM: A 10-system review of systems was performed and is negative for pertinent findings except as documented above in the HPI. Review of systems: ROS 14 point review of systems reviewed as best as possible given presentation. Pertinent positive or negative as per HPI or otherwise reviewed as negative - Constitutional Vitals: Temp Pulse Resp BP Pulse Ox 98.4 F 88 18 116/52 97 10/23/17 23:39 10/24/17 04:00 10/24/17 04:00 10/24/17 04:00 10/24/17 04:00 Exam: General - AAO x 3 Psych - Appropriate affect/speech. No agitation Eyes - JAMES. Eye lids intact. No scleral icterus Neuro - No gross peripheral or central neuro deficits with intact CN 2-12 exam Heart - Sinus. RRR. S1 and S2 present. No added HS/murmurs appreciated. No elevated JVD appreciated. Lung - Adequate air entry b/l, No crackles/wheezes appreciated GI - Lower abdo discomfort. No guarding or rigidity. No hepatosplenomegaly/ ascites. BS diminished - No CVA/suprapubic tenderness or palpable bladder distension Skin - Venous stasis skin changes. +1 b/l LE edema Internal Med - H&P Results - Labs CBC & Chem 7: 10/23/17 23:50 10/23/17 23:50
[2017-10-24] MEDS ORDERED: Albuterol Neb 0.63 MG/3 ML VIAL IH PRN (04:18)
[2017-10-24] MEDS ORDERED: *HR* OxyCODONE/APAP 10/325 TABLET PO PRN (04:18)
[2017-10-24] MEDS ORDERED: Naloxone 0.4 MG/ML INJ IVP PRN (04:21)
[2017-10-24] MEDS ORDERED: Dextrose Gel 15 GM/37.5 ML TUBE PO PRN ×2 (04:22)
[2017-10-24] MEDS ORDERED: D5% in Water 1,000 ML IVC PRN (04:22)
[2017-10-24] MEDS ORDERED: MOM Conc 10 ML UD.LIQ PO PRN (04:24)
[2017-10-24] MEDS: Insulin DETEMIR 100 UNIT/ML X5UNITS SQ SCH ×2 (06:31→20:26)
[2017-10-24] MEDS: *HR* OxyCODONE ER (12 HR) 20 MG TABLET PO SCH ×2 (06:31→17:43)
[2017-10-24] MEDS: *HR* Heparin 5,000 UNIT/ML VIAL SQ SCH ×2 (06:31→17:41)
[2017-10-24] MEDS: ARIPiprazole 10 MG TABLET PO SCH (08:34)
[2017-10-24] MEDS: Aspirin Enteric Coated 81 MG Tablet PO SCH (08:34)
[2017-10-24] MEDS: Calcium Acetate 667 MG CAPSULE PO SCH ×3 (08:34→17:41)
[2017-10-24] MEDS: Renal Vitamin 1 MG CAPSULE PO SCH (08:34)
[2017-10-24] MEDS: Sennosides 8.6 MG TABLET PO SCH ×2 (08:35→21:22)
[2017-10-24] MEDS: Insulin LISPRO 300 UNITS/3 ML VIAL SQ SCH ×6 (08:35→20:17)
[2017-10-24] MEDS: Gabapentin 100 MG CAPSULE PO SCH ×3 (08:35→21:22)
[2017-10-24] MEDS: COLESTIPOL HCL 1 GM PO SCH ×2 (08:37→21:23)
[2017-10-24] MEDS ORDERED: Bacitracin OINT PKT TP SCH (09:00)
[2017-10-24] MEDS: Miconazole w/zinc oxide&karaya 92 APPL/92 GM TUBE TP SCH ×2 (10:22→21:30)
[2017-10-24] MEDS: Ammonium Lactate 30 APPL/225 GM BOTTLE TP SCH ×2 (10:22→21:30)
[2017-10-24] MEDS: Budesonide/Formoterol 160/4.5 MDI IH SCH ×2 (10:23→22:22)
[2017-10-24] MEDS: Tiotropium 18 MCG inhalation IH SCH (10:23)
[2017-10-24] MEDS ORDERED: Ondansetron 4 MG/2 ML VIAL IVP SCH (12:00)
--- NOTE | 2017-10-24 12:29 | Nephrology Consult Note ---
Date of Encounter: 10/24/17 Time of Encounter: 12:23 Assessment and Plan (1) ESRD (end stage renal disease) on dialysis Current Visit: No Status: Acute HD MWF. Renal vitamins. Renal dose medications. Renal diet. Additional dialysis and ultrafiltration as needed. No acute need for dialysis today. (2) Hyponatremia Current Visit: No Status: Resolved Patient to restrict free water. Plan for dialysis on Wednesday. Checking labs today. (3) Anemia Current Visit: No Status: Chronic Monitor hemoglobin. Patient with report of vaginal vs urinary bleeding. Will defer to primary team. Qualifiers: Anemia type: other cause Other causes of anemia: chronic disease, other Qualified Code(s): D63.8 - Anemia in other chronic diseases classified elsewhere (4) HTN (hypertension) Current Visit: No Status: Chronic Blood pressure controlled. Titrate medications as needed. Qualifiers: Hypertension type: essential hypertension Qualified Code(s): I10 - Essential (primary) hypertension (5) Hydroureter on right Current Visit: Yes Status: Acute Per primary team. CT scan reviewed. (6) DMII (diabetes mellitus, type 2) Current Visit: Yes Status: Acute Per primary team. Qualifiers: Qualified Code(s): E11.9 - Type 2 diabetes mellitus without complications; Z79.4 - jail (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 of insulin; Z79.4 - joint terminal attack controller (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 of insulin; Z79.4 - joint terminal attack controller (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 of insulin; Z79.4 - joint terminal attack controller (current ) use of insulin History of Present Illness - Reason for Consult Consult date: 10/24/17 end stage renal disease, hyponatremia - Chief Complaint ESRD - History of Present Illness Ms. Riley is a 62 yo woman well known to [facility] ([facility]) and followed for her ESRD who presents secondary to finding "blood in her panties" and not feeling well. She was admitted and [facility] was consulted for ongoing dialysis needs. At the time of my evaluation she feels slightly tired, and has chronic pain. She has no chest pain or dyspnea. ROS otherwise seems stable. Past Med Surg Social Fam HX - Past Medical History Medical history: arthritis, asthma, atrial fibrillation, CHF, COPD, coronary artery disease, CVA, DVT, diabetes, dialysis, fibromyalgia, GERD, GI bleed, hyperlipidemia, hypertension, kidney stones, migraine, myocardial infarction, osteoporosis, peripheral artery disease, renal disease, other Psychiatric history: anxiety, depression, schizophrenia, previous psychiatric hospitalization, other - Past Surgical History Surgical History: angioplasty/stent, appendectomy, cholecystectomy, coronary bypass (CABG), hysterectomy, knee replacement, other, IVC filter - Social History Smoking Status: Current every day smoker Smokeless Tobacco Status: No Alcohol use: none Drug use: none - Family History Father Living Status: Hx Family Cardiac Disorders: Yes Hx Family Endocrine Disorder: Yes Mother Living Status: Still Living Hx Family Respiratory Disorders: Yes (end stage copd) Medications and Allergies Clopidogrel [Plavix] 75 mg PO DAILY 05/11/15 [History] Omeprazole [PriLOSEC] 20 mg PO BID 05/11/15 [History] Colestipol HCl [Colestid] 1 gm PO BID 06/12/15 [History] Carvedilol 12.5 mg PO BID 10/28/15 [History] Calcium Acetate [Phos-LO] 1,334 mg PO TIDWM 09/06/16 [History] Tiotropium [Spiriva] 18 mcg IH DAILY 01/12/17 [History] Folic Acid/Vit Bcomp,C [Renal Vitamin Tablet] 0.8 mg PO DAILY 04/15/17 [History] ARIPiprazole [Abilify] 10 mg PO DAILY 09/13/17 [History] Amitriptyline HCl 100 mg PO HS 09/13/17 [History] Ammonium Lactate 1 appl TP BID 09/13/17 [History] Aspirin Enteric Coated [Aspirin EC] 81 mg PO DAILY 09/13/17 [History] Budesonide/Formoterol 160/4.5 [Symbicort 160/4.5] 2 puff IH BIDR 09/13/17 [ History] Calcium Acetate [Phos-LO] 667 mg PO BID PRN 09/13/17 [History] Cholecalciferol (Vitamin D3) [Vitamin D3] 50,000 unit PO TH 09/13/17 [History] Insulin LISPRO [HumaLOG] 20 units SQ TIDAC 09/13/17 [History] Lidocaine/Prilocaine CREAM [Emla] 1 appl TP AD PRN 09/13/17 [History] OxyCODONE ER (12 HR) [OxyCONTIN] 20 mg PO Q12HR 09/13/17 [History] OxyCODONE/APAP 10/325 [Percocet 10/325 MG] 1 tab PO Q6H PRN 09/13/17 [History] Oxygen 2 l NS AD 09/13/17 [History] Sennosides [Senna] 8.6 mg PO BID 09/13/17 [History] Sevelamer [Renvela] 800 mg PO TIDWM 09/13/17 [History] Bacitracin OINT PKT [Ak-Tracin] 1 appl TP BID #20 packet 10/06/17 [Rx] Albuterol Neb [AccuNeb] 0.63 mg IH Q6H PRN 10/18/17 [History] Gabapentin [Neurontin] 100 mg PO TID #60 capsule 10/21/17 [Rx] Insulin Glargine,Hum.rec.anlog [Lantus Solostar] 45 unit SQ BID #0 10/21/17 [Rx] Miconazole w/zinc oxide&karaya [Antifungal Extra Thick] 1 appl TP BID 20 Days tube 10/21/17 [Rx] Rosuvastatin [Crestor] 10 mg PO HS #15 tablet 10/21/17 [Rx] 3 Allergy/AdvReac Type Severity Reaction Status Date / Time No Known Allergies Allergy Verified 10/18/17 02:12 Review of Systems All Systems: reviewed and no additional remarkable complaints except as stated ( as per hpi) Exam - Vital Signs Vital signs: Initial Vital Signs Temp Pulse Resp BP Pulse Ox 98.4 F 89 20 125/74 97 10/23/17 23:39 10/23/17 23:39 10/23/17 23:39 10/23/17 23:39 10/23/17 23:39 Vital Signs - Last 8 Hours Temp Pulse Resp BP Pulse Ox 10/24/17 11:21 97.8 F 83 12 131/63 99 10/24/17 10:23 16 99 10/24/17 09:00 83 95 10/24/17 07:39 97.6 F 86 20 126/71 98 10/24/17 04:48 98.1 F 82 20 114/61 100 Intake and Output 10/23/17 10/24/17 10/24/17 23:59 07:59 15:59 Intake Total 13.0 / 513.0 240 / 240 Output Total 0 / 0 Balance 13.0 / 513.0 240 / 240 Intake: IV Fluids 13.0 / 13.0 HumuLIN R 100 UNIT In 0.9 % 13.0 / 13.0 Sodium Chloride 100 ML @ 0.1 UNIT/KG/HR 10.94 mls/hr IVC CONT NATALIE Rx#:[id number] Oral 240 / 240 Output: Urine 0 / 0 Other: Meal Breakfast Percent of Meal Consumed 25% Weight 105.2 kg Blood Glucose* 233 121 Patient Weight 10/24/17 23:59 Weight 105.2 kg - General Appearance General appearance: well-developed, well-nourished, obese EENT: ATNC Neck: supple Respiratory: clear Cardiology: edema (trace), regular rhythm - Dialysis Access Dialysis Vascular Access: Arteriovenous Graft (left upper arm) thrill: Yes bruit: Yes Gastrointestinal: no tenderness, obese Integumentary: warm and dry Neurologic: alert and oriented x3 Musculoskeletal: no cyanosis Psychiatric: mood/affect appropriate, cooperative Results - Lab Results 10/23/17 23:50 10/23/17 23:50 Most recent lab results Calcium 9.3 mg/dL (8.6-10.3) 10/23/17 23:50 Phosphorus 7.6 mg/dL (2.7-4.5) H 10/23/17 23:50 Magnesium 2.4 mg/dL (1.6-2.6) 10/23/17 23:50 Consult Discharge Plan - Plan Referrals: NONE,PCP [Primary Care Provider] -
[2017-10-24] MEDS ORDERED: Ondansetron 4 MG/2 ML VIAL IVP PRN (13:03)
[2017-10-24] MEDS ORDERED: 0.9 % Sodium Chloride 1,000 ML IVC SCH (13:15)
[2017-10-24 13:22] LABS: Calcium 8.8 mg/dL (8.6-10.3); Potassium 4.6 mEq/L (3.5-5.1)
[2017-10-24] MEDS ORDERED: Piperacillin/Tazobactam 3.375 GM/200 ML BAG IVPB SCH (14:00)
[2017-10-24 17:23] LABS: Bilirubin,Urine Moderate (Negative); Blood,Urine Large (Negative); Clarity,Urine Turbid (Clear); Color,Urine Red (Yellow); Glucose,Urine (UA) Normal (Normal); Ketones,Urine Negative (Negative); Leukocyte Esterase,Urine Large (Negative); Nitrite,Urine Negative (Negative); Protein,Urine 100 mg/dL (Neg-Trace); Specific Gravity,Urine 1.021 (1.010-1.025); Urobilinogen,Urine Normal (Normal)
[2017-10-24 17:27] LABS: Hyaline Casts,Urine None Seen per lpf (None-Few); Squamous Epithelial Cell,Urine Few per lpf (None-Few); WBC,Urine 15-30 per hpf (0-3)
[2017-10-24 17:49] LABS: RBC,Urine TNTC per hpf (0-3); Yeast,Urine Many per hpf (None Seen)
[2017-10-24 17:50] LABS: Bacteria,Urine Moderate per hpf (None-Few)
--- NOTE | 2017-10-24 18:41 | Internal Med Progress Note ---
Date of Encounter: 10/24/17 Time of Encounter: 15:00 - Assessment and plan (1) DKA (diabetic ketoacidoses) Current Visit: Yes Status: Acute Assessment and plan: Improved switched to ISS + Levemir cont close monitoring No IVF due to ESRD Qualifiers: Qualified Code(s): E13.10 - Other specified diabetes mellitus with ketoacidosis without coma (2) UTI (urinary tract infection) Current Visit: No Status: Acute Assessment and plan: UA - looks infectious Will cont empirical abx Zosyn she did have ESBL E. Coli - but susceptible to Zosyn cont Zosyn for now will f/u on Urine cx repeat urine cx now Qualifiers: Urinary tract infection type: acute cystitis Hematuria presence: without hematuria Qualified Code(s): N30.00 - Acute cystitis without hematuria (3) Diastolic CHF Current Visit: Yes Status: Chronic Assessment and plan: Not in exacerbation cont close monitoring resumed all home meds Qualifiers: Congestive heart failure chronicity: chronic Qualified Code(s): I50.32 - Chronic diastolic (congestive) heart failure (4) ESRD (end stage renal disease) on dialysis Current Visit: No Status: Acute Assessment and plan: Nephro on board HD as per Nephro (5) Hyperglycemia due to type 2 diabetes mellitus Current Visit: No Status: Acute Assessment and plan: cont ISS + Levemir Qualifiers: Diabetes mellitus detention insulin use: with detention use Qualified Code( s): E11.65 - Type 2 diabetes mellitus with hyperglycemia; Z79.4 - hospital clinic assistant ( 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 of insulin (6) Sacral ulcer Current Visit: No Status: Chronic Assessment and plan: cont local wound care Qualifiers: Non-pressure ulcer stage: unspecified non-pressure ulcer stage Qualified Code(s): L98.429 - Non-pressure chronic ulcer of back with unspecified severity - Subjective Interval history: Ms. Riley is a 62 year old female with multiple co-morbidities IDDM, P.AFib, COPD, HTN, CHF and ESRD on HD, who return to the hospital after being discharged on 10/21/2017 with multiple non-specific symptoms of "blood all over panties" and lower abdo discomfort with emesis and subjective fevers, constipation. Pt seems to be in DKA, so she was placed on insulin gtt initially , now her BS are improved, she is tolerating PO intake well, so currently on ISS. She denied any CP / SOB - Constitutional Vitals: Temp Pulse Resp BP Pulse Ox 98.2 F 82 18 146/65 98 10/24/17 16:49 10/24/17 16:49 10/24/17 16:49 10/24/17 16:49 10/24/17 16:49 General appearance: Present: A&O X 3, no acute distress, answers questions appropriately - Head Head exam: Present: atraumatic, normal inspection - Neck Neck exam general surgery: Present: supple - Respiratory Respiratory exam: Present: decreased breath sounds, wheezes (mild). Absent: rales, respiratory distress, rhonchi - Cardiovascular Cardiovascular exam: Present: RRR, +S1, +S2. Absent: tachycardia - GI/Abdominal GI/Abdominal exam: Present: normal bowel sounds, soft. Absent: rebound, rigid, tenderness - Extremities Exam Extremities exam: Absent: calf tenderness, pedal edema, tenderness - Back Exam Back exam: Absent: CVA tenderness (L), CVA tenderness (R) - Neurological Exam Neurological exam: Present: alert, oriented X3 - Skin Skin exam: Absent: rash Internal Medicine: Result - Labs CBC & Chem 7: 10/23/17 23:50 10/24/17 12:55 Labs: Urine 10/24/17 Range/Units 17:14 Urine Color Red A (Yellow) Urine Clarity Turbid A (Clear) Urine pH 6.0 (5.0-8.0) pH Units Ur Specific [place] 1.021 (1.010-1.025) Urine Protein 100 H (Neg-Trace) mg/dL Urine Glucose (UA) Normal (Normal) mg/dL - ABG Interpretation ABG results: PT/INR, D-dimer PT 11.5 Seconds (9.4-12.1) 10/23/17 23:50 Consult Discharge Plan - Plan Referrals: NONE,PCP [Primary Care Provider] -
[2017-10-24] MEDS ORDERED: Insulin DETEMIR 100 UNIT/ML X5UNITS SQ ONE (20:26)
[2017-10-24] MEDS ORDERED: Insulin LISPRO 300 UNITS/3 ML VIAL SQ SCH (21:00)
[2017-10-25 05:14] LABS: Basophils # 0.1 K/mcL (0.0-0.2); Basophils % 0.9 %; Eosinophils # 0.3 K/mcL (0.0-0.6); Hematocrit 31.7 % (35.3-44.9); Hemoglobin 10.1 g/dL (11.5-15.4); Immature Granulocytes % 2.1 % (0-4); Lymphocytes # 2.2 K/mcL (0.6-4.6); Lymphocytes % 22.5 %; Mean Corpuscular HGB Conc 31.9 g/dL (31.6-35.5); Mean Corpuscular Hemoglobin 25.6 pg (28.0-33.3); Mean Corpuscular Volume 80.5 fL (83.0-100.0); Mean Platelet Volume 9.9 fL (9.4-12.4); Monocytes # 0.9 K/mcL (0.0-1.3); Monocytes % 9.2 %; Platelet Count 207 K/mcL (140-400); Red Blood Count 3.94 M/mcL (3.82-4.97); Red Cell Distribution Width 18.2 % (11.5-14.5); Segmented Neutrophils % 62.3 %
[2017-10-25 05:22] LABS: Hemoglobin A1C 12.5 %
[2017-10-25 05:38] LABS: Albumin 2.9 g/dL (3.5-5.7); Albumin/Globulin Ratio 0.9 (1.1-2.2); Bilirubin,Total 0.4 mg/dL (0.3-1.0); Calcium 8.8 mg/dL (8.6-10.3); Globulin 3.2 g/dL (2.4-3.5); Magnesium 2.2 mg/dL (1.6-2.6); Phosphorous 8.2 mg/dL (2.7-4.5); Potassium 5.2 mEq/L (3.5-5.1); Total Protein 6.1 g/dL (6.4-8.9)
[2017-10-25] MEDS: *HR* OxyCODONE ER (12 HR) 20 MG TABLET PO SCH ×2 (05:55→18:28)
[2017-10-25] MEDS: *HR* Heparin 5,000 UNIT/ML VIAL SQ SCH ×2 (05:56→18:28)
[2017-10-25] MEDS ORDERED: 0.9 % Sodium Chloride 250 ML IVC PRN (08:57)
[2017-10-25] MEDS ORDERED: 0.9 % Sodium Chloride 1,000 ML PRIME SCH (09:00)
[2017-10-25] MEDS ORDERED: Piperacillin/Tazobactam 3.375 GM/200 ML BAG IVPB SCH (09:00)
[2017-10-25] MEDS: Insulin LISPRO 300 UNITS/3 ML VIAL SQ SCH ×4 (09:01→21:35)
[2017-10-25] MEDS: ARIPiprazole 10 MG TABLET PO SCH (09:02)
[2017-10-25] MEDS: Calcium Acetate 667 MG CAPSULE PO SCH ×3 (09:02→16:10)
[2017-10-25] MEDS: Sennosides 8.6 MG TABLET PO SCH ×2 (09:02→20:19)
[2017-10-25] MEDS: Aspirin Enteric Coated 81 MG Tablet PO SCH (09:02)
[2017-10-25] MEDS: Renal Vitamin 1 MG CAPSULE PO SCH (09:02)
[2017-10-25] MEDS: Gabapentin 100 MG CAPSULE PO SCH ×3 (09:02→20:19)
[2017-10-25] MEDS: Ammonium Lactate 30 APPL/225 GM BOTTLE TP SCH ×2 (09:03→20:19)
[2017-10-25] MEDS: Miconazole w/zinc oxide&karaya 92 APPL/92 GM TUBE TP SCH ×2 (09:04→20:19)
[2017-10-25] MEDS: COLESTIPOL HCL 1 GM PO SCH ×2 (09:07→20:19)
[2017-10-25] MEDS: Tiotropium 18 MCG inhalation IH SCH (10:46)
[2017-10-25] MEDS: Budesonide/Formoterol 160/4.5 MDI IH SCH ×2 (10:47→20:11)
[2017-10-25] MEDS: *HR* Morphine 2 MG/ML SYRINGE IVP PRN ×2 (11:02→20:25)
--- NOTE | 2017-10-25 13:16 | Internal Med Progress Note ---
<Luis Tate - Last Filed: 10/25/17 15:35> Date of Encounter: 10/25/17 Time of Encounter: 08:30 - Assessment and plan (1) UTI (urinary tract infection) Current Visit: Yes Status: Acute Assessment and plan: Patient continues to have complaints of dysuria and hematuria. Denies fever, chills, vomiting, but continues to have complaints of nausea. Blood culture is negative x 2 despite + urine culture for yeast, likely secondary to contamination. Patient was discharged with meropenem on 10/21/17 but did not finish course. Switch Zosyn to meropenem. CT abd/pelvis demonstrates moderate right hydroureteronephrosis without obstructive calculus, suggestive of recently passed renal stone. Consult urology for possible recurrence of hydronephrosis. Qualifiers: Urinary tract infection type: site unspecified Hematuria presence: with hematuria Qualified Code(s): N39.0 - Urinary tract infection, site not specified; R31.9 - Hematuria, unspecified; R31.9 - Hematuria, unspecified (2) Hydroureter on right Current Visit: No Status: Acute Assessment and plan: CT abdomen/pelvis demonstrates hydroureteronephrosis. No obstructive calculus identified. Findings suggestive of recently passed renal stone. Urology consulted. (3) Lower abdominal pain Current Visit: Yes Status: Acute Assessment and plan: Patient continues to deny bowel movement. Senna and colace for constipation. (4) DMII (diabetes mellitus, type 2) Current Visit: No Status: Acute Assessment and plan: Resolved. Start on Humalog 4units TID with meals. Continue with Levamir 45 unit SQ BID Qualifiers: Qualified Code(s): E11.9 - Type 2 diabetes mellitus without complications (5) ESBL (extended spectrum beta-lactamase) producing bacteria infection Current Visit: No Status: Acute Assessment and plan: Continue contact precautions. Restarted on Meropenem. (6) ESRD (end stage renal disease) on dialysis Current Visit: No Status: Acute Assessment and plan: HD today. Monitor renal function with AM labs. (7) Anemia Current Visit: No Status: Chronic Assessment and plan: Chronic anemia. Currently stable and at baseline. Qualifiers: Anemia type: due to chronic kidney disease Chronic kidney disease stage: on chronic dialysis Qualified Code(s): N18.6 - End stage renal disease; D63.1 - Anemia in chronic kidney disease; Z99.2 - Dependence on renal dialysis (8) Diastolic CHF Current Visit: Yes Status: Acute Assessment and plan: Not in exacerbation, continue close monitoring. Qualifiers: Qualified Code(s): I50.30 - Unspecified diastolic (congestive) heart failure (9) Sacral ulcer Current Visit: No Status: Chronic Assessment and plan: Continue local wound care. Qualifiers: Non-pressure ulcer stage: unspecified non-pressure ulcer stage Qualified Code(s): L98.429 - Non-pressure chronic ulcer of back with unspecified severity - Time Spent With Patient 25 - 35 minutes - Subjective Interval history: 62F significant PMH of ESRD on HD, IDDM, P. AFib, COPD, HTN, CHF and hysterectomy in 1996 returns to ED after being discharged on 10/21/17 with complaints of waking up with blood on her undergarments and lower abdominal pain. She states that she has had a bleeding issue for the past several months , but not as heavy as this one. She reports subjective fever and chills with emesis 2 days ago, but no fever since admission noted. Denies headaches, dizziness, palpitations, SOB, cough, CP, nausea, vomiting today. Admits to hypogastric tenderness and pain, but denies diarrhea, melena or bright red stools. Patient has not had BM x 4 days and continues have lower abdominal pain and hematuria. She does admit to passing gas. Patient has no further complaints. - Constitutional Vitals: Temp Pulse Resp BP Pulse Ox 98.6 F 79 16 133/71 90 10/25/17 11:27 10/25/17 11:27 10/25/17 11:27 10/25/17 11:27 10/25/17 11:27 General appearance: Present: A&O X 3, no acute distress, answers questions appropriately - Head Head exam: Present: atraumatic - Eye Eye exam: Present: normal appearance - ENT ENT exam: Present: normal exam - Neck Neck exam general surgery: Present: full ROM, supple, trachea midline - Respiratory Respiratory exam: Present: CTAB. Absent: accessory muscle use, rales, wheezes - Cardiovascular Cardiovascular exam: Present: RRR. Absent: gallop, rubs, systolic murmur - GI/Abdominal GI/Abdominal exam: Present: guarding, normal bowel sounds, soft, tenderness, no peritoneal signs. Absent: bruit, hepatomegaly, rebound, splenomegaly Additional comments: hypogastric tenderness and pain upon palpation - External exam: Absent: erythema, lacerations, lesions Additional comments: Catheter with cola colored urine noted - Expanded Lower Extremities Exam Lower Leg exam: Present: swelling, tenderness (hyperpigmentation, swelling and tenderness of b/l lower legs suggestive of chronic venous insufficency or lymphedma ) Internal Medicine: Result - Labs CBC & Chem 7: 10/25/17 04:40 10/25/17 04:40 Labs: Short CBC 10/25/17 Range/Units 04:40 WBC 9.6 (4.3-11.1) K/mcL Hgb 10.1 L D (11.5-15.4) g/dL Hct 31.7 L (35.3-44.9) % Plt Count 207 (140-400) K/mcL Neutrophils # 6.0 (1.6-8.9) K/mcL BMP 10/25/17 04:40 Sodium 132 L Potassium 5.2 H Chloride 94 L Carbon Dioxide 26 BUN 78 H Creatinine 5.54 H Glucose 88 Calcium 8.8 Liver Function 10/25/17 Range/Units 04:40 Total Bilirubin 0.4 (0.3-1.0) mg/dL AST 15 (13-39) Units/L ALT 10 (7-52) Units/L Alkaline Phosphatase 196 H (34-104) Units/L Albumin 2.9 L (3.5-5.7) g/dL Urine 10/24/17 Range/Units 17:14 Urine Color Red A (Yellow) Urine Clarity Turbid A (Clear) Urine pH 6.0 (5.0-8.0) pH Units Ur Specific [place] 1.021 (1.010-1.025) Urine Protein 100 H (Neg-Trace) mg/dL Urine Glucose (UA) Normal (Normal) mg/dL - ABG Interpretation ABG results: PT/INR, D-dimer PT 11.5 Seconds (9.4-12.1) 10/23/17 23:50 Consult Discharge Plan - Plan Referrals: Tristen Quintana MD [Partnered Physician] - 10/28/17 1:20 pm NONE,PCP [Primary Care Provider] - <Ishola,Papito T - Last Filed: 10/25/17 16:56> Date of Encounter: 10/25/17 - Constitutional Vitals: Temp Pulse Resp BP Pulse Ox 97.9 F 79 20 157/86 90 10/25/17 15:15 10/25/17 11:27 10/25/17 15:15 10/25/17 15:15 10/25/17 11:27 Internal Medicine: Result - Labs CBC & Chem 7: 10/25/17 04:40 10/25/17 04:40 Labs: Short CBC 10/25/17 Range/Units 04:40 WBC 9.6 (4.3-11.1) K/mcL Hgb 10.1 L D (11.5-15.4) g/dL Hct 31.7 L (35.3-44.9) % Plt Count 207 (140-400) K/mcL Neutrophils # 6.0 (1.6-8.9) K/mcL BMP 10/25/17 04:40 Sodium 132 L Potassium 5.2 H Chloride 94 L Carbon Dioxide 26 BUN 78 H Creatinine 5.54 H Glucose 88 Calcium 8.8 Liver Function 10/25/17 Range/Units 04:40 Total Bilirubin 0.4 (0.3-1.0) mg/dL AST 15 (13-39) Units/L ALT 10 (7-52) Units/L Alkaline Phosphatase 196 H (34-104) Units/L Albumin 2.9 L (3.5-5.7) g/dL Urine 10/24/17 Range/Units 17:14 Urine Color Red A (Yellow) Urine Clarity Turbid A (Clear) Urine pH 6.0 (5.0-8.0) pH Units Ur Specific [place] 1.021 (1.010-1.025) Urine Protein 100 H (Neg-Trace) mg/dL Urine Glucose (UA) Normal (Normal) mg/dL - ABG Interpretation ABG results: PT/INR, D-dimer PT 11.5 Seconds (9.4-12.1) 10/23/17 23:50 - Attending Attestation I examined this patient and my medical decision-making was reviewed with the Resident Physician on 10/25/17. I agree with the documented findings, disposition and treatment plan as described except to the extent set forth below. 62 F with ESRD, recently discharged after management of ESBL UTI, complicated due to presence of hydro nephrosis, hydroureter. She also has HTN, CHFpEF, Afib , DM2, Smoker No new complains No evidence of witnessed bleeding, she also complained of hematuria, repeat urine culture is pending eval is pending Her physical exam is unremarkable Labs and Imaging are at baseline Continue current management Rest of details as in the resident physicians documentation.
--- NOTE | 2017-10-25 13:58 | Electrocardiograph Report ---
[address] [address] Test Date: 2017-10-24 Pat Name: Lynnette Riley Department: 104 Room: 2N03 Gender: F Radiological Health Specialist: : 1955 Requested By: Everton Ocasio Order Number: [id number] Reading MD: Laisha Shepherd Measurements Intervals [place] Rate: 86 P: 74 VT: 184 QRS: 87 QRSD: 98 T: 79 QT: 383 QTc: 427 Interpretive Statements SINUS RHYTHM WITH OCCASIONAL SUPRAVENTRICULAR PREMATURE COMPLEXES EARLY REPOLARIZATION ABNORMALITY Electronically Signed On 10-25-2017 13:56:47 EST by Laisha Shepherd
[2017-10-25] MEDS ORDERED: 0.9 % Sodium Chloride 2,000 ML ONE (14:05)
[2017-10-25] MEDS: Insulin DETEMIR 100 UNIT/ML X5UNITS SQ SCH ×2 (15:12→20:18)
--- NOTE | 2017-10-25 15:26 | Urology - Consult Note ---
Date of Encounter: 10/26/17 Time of Encounter: 15:23 - Assessment and Plan (1) Hematuria Current Visit: Yes Status: Acute Assessment and plan: urine with some old blood in catheter. urine clear otherwise. Qualifiers: Hematuria type: gross Qualified Code(s): R31.0 - Gross hematuria (2) Hydronephrosis, right Current Visit: Yes Status: Acute Assessment and plan: no urgent need for cystoscopy and right ureteral stent placement. Patient will be scheduled from the urology office for this procedure. Recommend to continue catheter at this time as this did help patient's symptoms. Urology CN:HPI Consult date: 10/25/17 Reason for consult Urology: Hydronephrosis Requesting physician: Luis Tate History of present illness: Lynnette is a 62 y/o female with history of recent admission with hematuria and some nausea. Patient was recently evaluated by Dr. Lynch on a separate admission. Patient had a catheter placed upon arrival to the hospital which she states has improved her lower abdominal discomfort as well as her nausea. She has dark urine within her catheter. She was on dialysis during today's evaluation to the patient was somewhat groggy. Past Med Surg Social Fam HX - Past Medical History Medical history: arthritis, asthma, atrial fibrillation, CHF, COPD, coronary artery disease, CVA, DVT, diabetes, dialysis, fibromyalgia, GERD, GI bleed, hyperlipidemia, hypertension, kidney stones, migraine, myocardial infarction, osteoporosis, peripheral artery disease, renal disease, other Psychiatric history: anxiety, depression, schizophrenia, previous psychiatric hospitalization, other - Past Surgical History Surgical History: angioplasty/stent, appendectomy, cholecystectomy, coronary bypass (CABG), hysterectomy, knee replacement, other, IVC filter - Social History Smoking Status: Current every day smoker Smokeless Tobacco Status: No Alcohol use: none Drug use: none - Family History Father Living Status: Hx Family Cardiac Disorders: Yes Hx Family Endocrine Disorder: Yes Mother Living Status: Still Living Hx Family Respiratory Disorders: Yes (end stage copd) Medications and Allergies Clopidogrel [Plavix] 75 mg PO DAILY 05/11/15 [History] Omeprazole [PriLOSEC] 20 mg PO BID 05/11/15 [History] Colestipol HCl [Colestid] 1 gm PO BID 06/12/15 [History] Carvedilol 12.5 mg PO BID 01/18/16 [History] Calcium Acetate [Phos-LO] 1,334 mg PO TIDWM 09/06/16 [History] Tiotropium [Spiriva] 18 mcg IH DAILY 01/12/17 [History] Folic Acid/Vit Bcomp,C [Renal Vitamin Tablet] 0.8 mg PO DAILY 04/15/17 [History] ARIPiprazole [Abilify] 10 mg PO DAILY 09/13/17 [History] Amitriptyline HCl 100 mg PO HS 09/13/17 [History] Ammonium Lactate 1 appl TP BID 09/13/17 [History] Aspirin Enteric Coated [Aspirin EC] 81 mg PO DAILY 09/13/17 [History] Budesonide/Formoterol 160/4.5 [Symbicort 160/4.5] 2 puff IH BIDR 09/13/17 [ History] Calcium Acetate [Phos-LO] 667 mg PO BID PRN 09/13/17 [History] Cholecalciferol (Vitamin D3) [Vitamin D3] 50,000 unit PO TH 09/13/17 [History] Insulin LISPRO [HumaLOG] 20 units SQ TIDAC 09/13/17 [History] Lidocaine/Prilocaine CREAM [Emla] 1 appl TP AD PRN 09/13/17 [History] OxyCODONE ER (12 HR) [OxyCONTIN] 20 mg PO Q12HR 09/13/17 [History] OxyCODONE/APAP 10/325 [Percocet 10/325 MG] 1 tab PO Q6H PRN 09/13/17 [History] Oxygen 2 l NS AD 09/13/17 [History] Sennosides [Senna] 8.6 mg PO BID 09/13/17 [History] Sevelamer [Renvela] 800 mg PO TIDWM 09/13/17 [History] Bacitracin OINT PKT [Ak-Tracin] 1 appl TP BID #20 packet 10/06/17 [Rx] Albuterol Neb [AccuNeb] 0.63 mg IH Q6H PRN 10/18/17 [History] Gabapentin [Neurontin] 100 mg PO TID #60 capsule 10/21/17 [Rx] Insulin Glargine,Hum.rec.anlog [Lantus Solostar] 45 unit SQ BID #0 10/21/17 [Rx] Miconazole w/zinc oxide&karaya [Antifungal Extra Thick] 1 appl TP BID 20 Days tube 10/21/17 [Rx] Rosuvastatin [Crestor] 10 mg PO HS #15 tablet 10/21/17 [Rx] amLODIPine [Norvasc] 5 mg PO DAILY 10/26/17 [History] metOLazone [Zaroxolyn] 1 tab PO DAILY 10/26/17 [History] 3 Allergy/AdvReac Type Severity Reaction Status Date / Time No Known Allergies Allergy Verified 10/18/17 02:12 Review of Systems - Constitutional no chills - EENT Nose, mouth and throat: no dizziness - Cardiovascular no chest pain - Gastrointestinal no abdominal pain Exam Initial Vital Signs Temp Pulse Resp BP Pulse Ox 98.4 F 89 20 125/74 97 10/23/17 23:39 10/23/17 23:39 10/23/17 23:39 10/23/17 23:39 10/23/17 23:39 - General physical appearance Present: well developed, no distress - Eyes Absent: icteric - Respiratory Present: normal respiratory effort - Cardiovascular Cardiovascular exam IM: RRR - Abdomen Abdomen: Present: soft - Genitourinary Present: other (urine in tubing dark but clear) Urology Results - Labs 10/26/17 05:15 10/26/17 05:15 Abnormal lab results Hgb 10.1 g/dL (11.5-15.4) L D 10/25/17 04:40 Hct 31.7 % (35.3-44.9) L 10/25/17 04:40 MCV 80.5 fL (83.0-100.0) L 10/25/17 04:40 MCH 25.6 pg (28.0-33.3) L 10/25/17 04:40 RDW 18.2 % (11.5-14.5) H 10/25/17 04:40 Reactive Lymphocytes Present (Not Present) A 10/23/17 23:50 Anisocytosis 1+ (Not Present) A 10/23/17 23:50 Microcytosis Present (Not Present) A 10/23/17 23:50 VBG pO2 86 mmHg (25-50) H 10/24/17 01:27 Sodium 132 mEq/L (136-145) L 10/25/17 04:40 Potassium 5.2 mEq/L (3.5-5.1) H 10/25/17 04:40 Chloride 94 mEq/L (98-107) L 10/25/17 04:40 BUN 78 mg/dL (8-23) H 10/25/17 04:40 Creatinine 5.54 mg/dL (0.60-1.20) H 10/25/17 04:40 Est GFR ( Amer) 9 (> 60) L 10/25/17 04:40 Est GFR (Non-Af Amer) 8 (> 60) L 10/25/17 04:40 POC Glucose 107 (58-89) H 10/24/17 19:57 Hemoglobin A1c 12.5 % (-5.6) H 10/25/17 04:40 Phosphorus 8.2 mg/dL (2.7-4.5) H 10/25/17 04:40 Alkaline Phosphatase 196 Units/L (34-104) H 10/25/17 04:40 Serum Total Protein 6.1 g/dL (6.4-8.9) L 10/25/17 04:40 Albumin 2.9 g/dL (3.5-5.7) L 10/25/17 04:40 Albumin/Globulin Ratio 0.9 (1.1-2.2) L 10/25/17 04:40 Beta-Hydroxybutyric Acd 0.28 mmol/L (0.02-0.27) H 10/24/17 01:17 Urine Color Red (Yellow) A 10/24/17 17:14 Urine Clarity Turbid (Clear) A 10/24/17 17:14 Urine Protein 100 mg/dL (Neg-Trace) H 10/24/17 17:14 Urine Blood Large (Negative) H 10/24/17 17:14 Urine Bilirubin Moderate (Negative) H 10/24/17 17:14 Ur Leukocyte Esterase Large (Negative) H 10/24/17 17:14 Urine Microscopic RBC TNTC per hpf (0-3) H 10/24/17 17:14 Urine Microscopic WBC 15-30 per hpf (0-3) H 10/24/17 17:14 Urine Bacteria Moderate per hpf (None-Few) H 10/24/17 17:14 Urine Yeast Many per hpf (None Seen) H 10/24/17 17:14 Diabetes panel 10/25/17 10/25/17 Range/Units 04:40 04:40 Sodium 132 L (136-145) mEq/L Potassium 5.2 H (3.5-5.1) mEq/L Chloride 94 L (98-107) mEq/L Carbon Dioxide 26 (23-29) mEq/L BUN 78 H (8-23) mg/dL Creatinine 5.54 H (0.60-1.20) mg/dL Glucose 88 (70-105) mg/dL Hemoglobin A1c 12.5 H ( - 5.6) % Calcium 8.8 (8.6-10.3) mg/dL AST 15 (13-39) Units/L ALT 10 (7-52) Units/L Alkaline Phosphatase 196 H (34-104) Units/L Albumin 2.9 L (3.5-5.7) g/dL Calcium panel 10/25/17 Range/Units 04:40 Calcium 8.8 (8.6-10.3) mg/dL Phosphorus 8.2 H (2.7-4.5) mg/dL Albumin 2.9 L (3.5-5.7) g/dL Pituitary panel 10/25/17 Range/Units 04:40 Sodium 132 L (136-145) mEq/L Potassium 5.2 H (3.5-5.1) mEq/L Chloride 94 L (98-107) mEq/L Carbon Dioxide 26 (23-29) mEq/L BUN 78 H (8-23) mg/dL Creatinine 5.54 H (0.60-1.20) mg/dL Glucose 88 (70-105) mg/dL Calcium 8.8 (8.6-10.3) mg/dL Adrenal panel 10/25/17 Range/Units 04:40 Sodium 132 L (136-145) mEq/L Potassium 5.2 H (3.5-5.1) mEq/L Chloride 94 L (98-107) mEq/L Carbon Dioxide 26 (23-29) mEq/L BUN 78 H (8-23) mg/dL Creatinine 5.54 H (0.60-1.20) mg/dL Glucose 88 (70-105) mg/dL Calcium 8.8 (8.6-10.3) mg/dL Total Bilirubin 0.4 (0.3-1.0) mg/dL AST 15 (13-39) Units/L ALT 10 (7-52) Units/L Alkaline Phosphatase 196 H (34-104) Units/L Albumin 2.9 L (3.5-5.7) g/dL All other labs normal. - Imaging CT scan - abdomen: image reviewed CT scan - pelvis: image reviewed Consult Discharge Plan - Plan Referrals: Tristen Quintana MD [Partnered Physician] - 10/28/17 1:20 pm NONE,PCP [Primary Care Provider] -
[2017-10-25] MEDS: Meropenem 1,000 MG in Water for inj. (sterile) 20 ML 10 ML IVP SCH (16:09)
--- NOTE | 2017-10-25 23:08 | Nephrology Progress Note ---
Date of Encounter: 10/25/17 Time of Encounter: 14:00 - Assessment and Plan (1) ESRD (end stage renal disease) on dialysis Current Visit: No Status: Acute HD MWF. Patient was seen on dialysis. Renal diet. Renal dose medications. Additional dialysis as needed. (2) Hyponatremia Current Visit: No Status: Resolved Improving. (3) Anemia Current Visit: No Status: Suspected Qualifiers: Anemia type: other cause Other causes of anemia: chronic disease, other Qualified Code(s): D63.8 - Anemia in other chronic diseases classified elsewhere (4) HTN (hypertension) Current Visit: No Status: Chronic Titrate antihypertensive medications as needed. Qualifiers: Hypertension type: essential hypertension Qualified Code(s): I10 - Essential (primary) hypertension (5) Hydroureter on right Current Visit: No Status: Acute (6) DMII (diabetes mellitus, type 2) Current Visit: No Status: Acute Qualifiers: Qualified Code(s): E11.9 - Type 2 diabetes mellitus without complications Subjective Principal diagnosis: ESRD Interval history: Patient seen while on dialysis. No new complaint Objective - Vital Signs Vital signs: Vital Signs Temp Pulse Resp BP Pulse Ox 10/25/17 20:12 18 96 10/25/17 20:00 98.1 F 79 17 123/64 97 10/25/17 16:51 97.7 F 91 18 120/68 97 10/25/17 15:15 97.9 F 20 157/86 10/25/17 15:00 151/77 10/25/17 14:45 145/73 10/25/17 14:30 143/69 10/25/17 14:15 132/64 10/25/17 14:00 128/84 10/25/17 13:45 129/74 10/25/17 13:30 133/63 10/25/17 13:15 125/55 10/25/17 13:00 156/85 10/25/17 12:45 131/60 10/25/17 12:30 140/64 10/25/17 12:15 146/61 10/25/17 12:00 146/61 10/25/17 11:45 140/74 10/25/17 11:30 97.6 F 18 143/66 10/25/17 11:27 98.6 F 79 16 133/71 90 10/25/17 10:47 17 98 10/25/17 07:45 97.6 F 76 14 139/69 99 10/25/17 03:05 97.7 F 81 10 121/64 98 10/24/17 23:40 97.8 F 75 10 144/83 98 Intake and Output 10/25/17 10/25/17 10/25/17 07:59 15:59 23:59 Intake Total 840 / 840 0 / 0 Output Total 200 / 200 4600 / 4600 300 / 300 Balance -200 / -200 -3760 / -3760 -300 / -300 Intake: Oral 240 / 240 0 / 0 Intake, Rinseback and Flushes 600 / 600 Output: Urine 0 / 0 Total Dialysis (HD) Output 4600 / 4600 Catheter 200 / 200 300 / 300 Urethral ([place]) 200 / 200 300 / 300 Other: Meal Breakfast Percent of Meal Consumed 100% Weight 106.5 kg Blood Glucose* 107 164 249 Hemodialysis Net Fluid Removed 4000 (mL) Patient Weight 10/25/17 23:59 Weight 106.5 kg - General Appearance General appearance: Present: well-developed, well-nourished EENT: Present: ATNC Cardiology: Present: regular rate Dialysis Vascular Access: Arteriovenous Fistula thrill: Yes bruit: Yes Integumentary: Present: warm and dry Neurologic: Present: alert and oriented x3 - Lab 10/25/17 04:40 10/25/17 04:40 Most recent lab results Calcium 8.8 mg/dL (8.6-10.3) 10/25/17 04:40 Phosphorus 8.2 mg/dL (2.7-4.5) H 10/25/17 04:40 Magnesium 2.2 mg/dL (1.6-2.6) 10/25/17 04:40 Consult Discharge Plan - Plan Referrals: Tristen Quintana MD [Partnered Physician] - 10/28/17 1:20 pm NONE,PCP [Primary Care Provider] -
[2017-10-26] MEDS: Meropenem 1,000 MG in Water for inj. (sterile) 20 ML 10 ML IVP SCH ×2 (00:38→08:21)
[2017-10-26] MEDS: *HR* Morphine 2 MG/ML SYRINGE IVP PRN (01:57)
[2017-10-26 05:50] LABS: Basophils # 0.1 K/mcL (0.0-0.2); Eosinophils # 0.2 K/mcL (0.0-0.6); Eosinophils % 2.2 %; Hematocrit 32.1 % (35.3-44.9); Hemoglobin 9.8 g/dL (11.5-15.4); Immature Granulocytes % 2.5 % (0-4); Lymphocytes # 1.5 K/mcL (0.6-4.6); Lymphocytes % 20.7 %; Mean Corpuscular HGB Conc 30.5 g/dL (31.6-35.5); Mean Corpuscular Hemoglobin 25.1 pg (28.0-33.3); Mean Corpuscular Volume 82.1 fL (83.0-100.0); Mean Platelet Volume 10.3 fL (9.4-12.4); Monocytes # 0.7 K/mcL (0.0-1.3); Monocytes % 9.4 %; Neutrophils # 4.7 K/mcL (1.6-8.9); Platelet Count 208 K/mcL (140-400); Red Blood Count 3.91 M/mcL (3.82-4.97); Red Cell Distribution Width 18.5 % (11.5-14.5); Segmented Neutrophils % 64.2 %
[2017-10-26 05:56] LABS: Calcium 8.5 mg/dL (8.6-10.3); Potassium 5.1 mEq/L (3.5-5.1)
[2017-10-26] MEDS: *HR* Heparin 5,000 UNIT/ML VIAL SQ SCH ×2 (06:40→18:44)
[2017-10-26] MEDS: *HR* OxyCODONE ER (12 HR) 20 MG TABLET PO SCH ×2 (06:41→18:44)
--- NOTE | 2017-10-26 07:40 | Internal Med Progress Note ---
Date of Encounter: 10/26/17 Time of Encounter: 08:00 - Assessment and plan (1) UTI (urinary tract infection) Current Visit: Yes Status: Acute Qualifiers: Urinary tract infection type: site unspecified Hematuria presence: with hematuria Qualified Code(s): N39.0 - Urinary tract infection, site not specified; R31.9 - Hematuria, unspecified; R31.9 - Hematuria, unspecified (2) Hydroureter on right Current Visit: No Status: Acute (3) Lower abdominal pain Current Visit: Yes Status: Acute (4) DMII (diabetes mellitus, type 2) Current Visit: No Status: Acute Qualifiers: Qualified Code(s): E11.9 - Type 2 diabetes mellitus without complications (5) ESBL (extended spectrum beta-lactamase) producing bacteria infection Current Visit: No Status: Acute (6) ESRD (end stage renal disease) on dialysis Current Visit: No Status: Acute (7) Anemia Current Visit: No Status: Chronic Qualifiers: Anemia type: due to chronic kidney disease Chronic kidney disease stage: on chronic dialysis Qualified Code(s): N18.6 - End stage renal disease; D63.1 - Anemia in chronic kidney disease; Z99.2 - Dependence on renal dialysis (8) Diastolic CHF Current Visit: Yes Status: Acute Qualifiers: Qualified Code(s): I50.30 - Unspecified diastolic (congestive) heart failure (9) Sacral ulcer Current Visit: No Status: Chronic Qualifiers: Non-pressure ulcer stage: unspecified non-pressure ulcer stage Qualified Code(s): L98.429 - Non-pressure chronic ulcer of back with unspecified severity - Subjective Interval history: 62F significant PMH of ESRD on HD, IDDM, P. AFib, COPD, HTN, CHF and hysterectomy in 1996 returns to ED after being discharged on 10/21/17 with complaints of waking up with blood on her undergarments and lower abdominal pain. She states that she has had a bleeding issue for the past several months , but not as heavy as this one. She reports subjective fever and chills with emesis 2 days ago, but no fever since admission noted. Denies headaches, dizziness, palpitations, SOB, cough, CP, nausea, vomiting today. Admits to hypogastric tenderness and pain, but denies diarrhea, melena or bright red stools. Patient has not had BM x 4 days and continues have lower abdominal pain and hematuria. She does admit to passing gas. Patient has no further complaints. - Constitutional Vitals: Temp Pulse Resp BP Pulse Ox 97.6 F 72 20 111/49 100 10/26/17 04:05 10/26/17 04:05 10/26/17 04:05 10/26/17 04:05 10/26/17 04:05 General appearance: Present: A&O X 3, no acute distress, answers questions appropriately Internal Medicine: Result - Labs CBC & Chem 7: 10/26/17 05:15 10/26/17 05:15 Labs: Short CBC 10/26/17 Range/Units 05:15 WBC 7.3 (4.3-11.1) K/mcL Hgb 9.8 L (11.5-15.4) g/dL Hct 32.1 L (35.3-44.9) % Plt Count 208 (140-400) K/mcL Neutrophils # 4.7 (1.6-8.9) K/mcL BMP 10/26/17 05:15 Sodium 132 L Potassium 5.1 Chloride 93 L Carbon Dioxide 29 BUN 36 H Creatinine 3.49 H Glucose 391 H Calcium 8.5 L - ABG Interpretation ABG results: PT/INR, D-dimer PT 11.5 Seconds (9.4-12.1) 10/23/17 23:50 Consult Discharge Plan - Plan Referrals: Tristen Quintana MD [Partnered Physician] - 10/28/17 1:20 pm NONE,PCP [Primary Care Provider] -
[2017-10-26] MEDS: Aspirin Enteric Coated 81 MG Tablet PO SCH (08:28)
[2017-10-26] MEDS: Renal Vitamin 1 MG CAPSULE PO SCH (08:28)
[2017-10-26] MEDS: Sennosides 8.6 MG TABLET PO SCH (08:28)
[2017-10-26] MEDS: Calcium Acetate 667 MG CAPSULE PO SCH ×3 (08:28→18:43)
[2017-10-26] MEDS: ARIPiprazole 10 MG TABLET PO SCH (08:29)
[2017-10-26] MEDS: Gabapentin 100 MG CAPSULE PO SCH ×2 (08:29→18:37)
[2017-10-26] MEDS: Insulin DETEMIR 100 UNIT/ML X5UNITS SQ SCH (08:31)
[2017-10-26] MEDS: Miconazole w/zinc oxide&karaya 92 APPL/92 GM TUBE TP SCH (08:32)
[2017-10-26] MEDS: Ammonium Lactate 30 APPL/225 GM BOTTLE TP SCH (08:33)
[2017-10-26] MEDS: Insulin LISPRO 300 UNITS/3 ML VIAL SQ SCH ×3 (08:37→18:37)
[2017-10-26] MEDS ORDERED: *HR* OxyCODONE/APAP 10/325 TABLET PO PRN (09:20)
[2017-10-26] MEDS ORDERED: Ertapenem 500 MG in Water for inj. (sterile) 10 ML IVP ONE ×2 (09:21→11:40)
[2017-10-26] MEDS ORDERED: Tiotropium 18 MCG inhalation IH SCH (10:00)
--- NOTE | 2017-10-26 10:16 | Discharge Summary ---
<Papito Stoll T - Last Filed: 10/26/17 13:14> Date of Encounter: 10/26/17 - Discharge Medications Prescriptions: Docusate Sodium [Colace] 100 mg PO BID #60 capsule Meropenem 500 mg IV DAILY 8 Days #8 vial Home Medications: Clopidogrel [Plavix] 75 mg PO DAILY 05/11/15 [History] Omeprazole [PriLOSEC] 20 mg PO BID 05/11/15 [History] Colestipol HCl [Colestid] 1 gm PO BID 06/12/15 [History] Carvedilol 12.5 mg PO BID 10/28/15 [History] Calcium Acetate [Phos-LO] 1,334 mg PO TIDWM 09/06/16 [History] Folic Acid/Vit Bcomp,C [Renal Vitamin Tablet] 0.8 mg PO DAILY 04/15/17 [History] ARIPiprazole [Abilify] 10 mg PO DAILY 09/13/17 [History] Amitriptyline HCl 100 mg PO HS 09/13/17 [History] Aspirin Enteric Coated [Aspirin EC] 81 mg PO DAILY 09/13/17 [History] Budesonide/Formoterol 160/4.5 [Symbicort 160/4.5] 2 puff IH BIDR 09/13/17 [ History] Cholecalciferol (Vitamin D3) [Vitamin D3] 50,000 unit PO TH 09/13/17 [History] Insulin LISPRO [HumaLOG] 20 units SQ TIDAC 09/13/17 [History] Lidocaine/Prilocaine CREAM [Emla] 1 appl TP AD PRN 09/13/17 [History] OxyCODONE ER (12 HR) [OxyCONTIN] 20 mg PO Q12HR 09/13/17 [History] OxyCODONE/APAP 10/325 [Percocet 10/325 MG] 1 tab PO Q6H PRN 09/13/17 [History] Oxygen 2 l NS AD 09/13/17 [History] Sennosides [Senna] 8.6 mg PO BID 09/13/17 [History] Sevelamer [Renvela] 800 mg PO TIDWM 09/13/17 [History] Albuterol Neb [AccuNeb] 0.63 mg IH Q6H PRN 10/18/17 [History] Gabapentin [Neurontin] 100 mg PO TID #60 capsule 10/21/17 [Rx] Insulin Glargine,Hum.rec.anlog [Lantus Solostar] 45 unit SQ BID #0 10/21/17 [Rx] Rosuvastatin [Crestor] 10 mg PO HS #15 tablet 10/21/17 [Rx] Docusate Sodium [Colace] 100 mg PO BID #60 capsule 10/26/17 [Rx] Meropenem 500 mg IV DAILY 8 Days #8 vial 10/26/17 [Rx] amLODIPine [Norvasc] 5 mg PO DAILY 10/26/17 [History] metOLazone [Zaroxolyn] 1 tab PO DAILY 10/26/17 [History] Allergies/Adverse Reactions: 3 Allergy/AdvReac Type Severity Reaction Status Date / Time No Known Allergies Allergy Verified 10/18/17 02:12 Date of admission: 10/24/17 03:57 Primary care physician: PCP NONE Consults: 10/24/17 04:20 Consult to Nephrology [CONS] Routine Consulting Provider: Kidney Olivia/MARCO/SWAPNA/MILLIE Reason for Consult: MWF HD Call Completed: No 10/24/17 04:24 Consult to Wound Care [CONS] Routine Reason for Consult: decub ulcer care Call Completed: No Consult to Wound Care [CONS] Routine Reason for Consult: right knee wound Call Completed: No 10/25/17 09:00 Consult to Dialysis [CONS] ONCE 10/25/17 13:48 Consult to Urology [CONS] Routine Consulting Provider: Urology Olivia Reason for Consult: hydronephrosis, gross hematuria Time Notified: 13:49 Call Completed: Yes - Patient Status Disposition: Home Health Service Condition: Fair - Discharge Instructions Follow Up With: Tristen Quintana MD [Partnered Physician] - 10/28/17 1:20 pm NONE,PCP [Primary Care Provider] - Hospital course: Ms. Riley is a 62 year old female - Time Spent with Patient Total time spent providing and/or coordinating discharge services: - Constitutional Vitals: Temp Pulse Resp BP Pulse Ox 97.7 F 72 20 120/68 100 10/26/17 10:44 10/26/17 10:44 10/26/17 10:44 10/26/17 10:44 10/26/17 10:44 - Attending Attestation I examined this patient and my medical decision-making was reviewed with the Resident Physician on 10/26/17. I agree with the documented findings, disposition and treatment plan as described except to the extent set forth below. 62 F with ESRD, recently discharged after management of ESBL UTI, complicated due to presence of hydro nephrosis, hydroureter. She also has HTN, CHFpEF, Afib , DM2, Smoker No new complains No evidence of witnessed bleeding, she also complained of hematuria, urine culture growing yeast She has no new complains Urology eval noted Per SW, patient's aide stated she fell over the weekend, the patient admitted to me this was true I again, offered placement to SNF as patient's recurrent admissions is evidence she is unable to care for herself She again refused eval is noted, and they plan to follow up with the patient as out-patient She is already being treated for UTI with etarpenem, we will continue same at discharge She is otherwise stable for discharge home with nursing, PTOT infusion, 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 <Luis Tate - Last Filed: 10/26/17 13:21> Date of Encounter: 10/26/17 Time of Encounter: 09:30 - Discharge Diagnosis (1) UTI (urinary tract infection) Priority: Primary Status: Acute Qualifiers: Urinary tract infection type: site unspecified Hematuria presence: with hematuria Qualified Code(s): N39.0 - Urinary tract infection, site not specified; R31.9 - Hematuria, unspecified; R31.9 - Hematuria, unspecified (2) Hydroureter on right Priority: Secondary Status: Acute (3) Lower abdominal pain Priority: Primary Status: Acute (4) DMII (diabetes mellitus, type 2) Priority: Secondary Status: Acute Qualifiers: Qualified Code(s): E11.9 - Type 2 diabetes mellitus without complications (5) ESBL (extended spectrum beta-lactamase) producing bacteria infection Priority: Secondary Status: Acute (6) ESRD (end stage renal disease) on dialysis Priority: Secondary Status: Acute (7) Anemia Priority: Secondary Status: Chronic Qualifiers: Anemia type: due to chronic kidney disease Chronic kidney disease stage: on chronic dialysis Qualified Code(s): N18.6 - End stage renal disease; D63.1 - Anemia in chronic kidney disease; Z99.2 - Dependence on renal dialysis (8) Diastolic CHF Priority: Secondary Status: Acute Qualifiers: Qualified Code(s): I50.30 - Unspecified diastolic (congestive) heart failure (9) Sacral ulcer Priority: Secondary Status: Chronic Qualifiers: Non-pressure ulcer stage: unspecified non-pressure ulcer stage Qualified Code(s): L98.429 - Non-pressure chronic ulcer of back with unspecified severity Date of admission: 10/24/17 03:57 Primary care physician: PCP NONE Consults: 10/24/17 04:20 Consult to Nephrology [CONS] Routine Consulting Provider: Kidney Olivia/MARCO/SWAPNA/MILLIE Reason for Consult: MWF HD Call Completed: No 10/24/17 04:24 Consult to Wound Care [CONS] Routine Reason for Consult: decub ulcer care Call Completed: No Consult to Wound Care [CONS] Routine Reason for Consult: right knee wound Call Completed: No 10/25/17 09:00 Consult to Dialysis [CONS] ONCE 10/25/17 13:48 Consult to Urology [CONS] Routine Consulting Provider: Urology Olivia Reason for Consult: hydronephrosis, gross hematuria Time Notified: 13:49 Call Completed: Yes Discharging clinician: Luis Tate Anticipated date of discharge: 10/26/17 - Patient Status Functional capacity at discharge: uses cane/walker Overall status at discharge: patient is back to baseline - Diet and Activity Activity: ambulate only with your walker Diet: advance to your usual diet Interval History: consult reports no urgent need for cystoscopy or stent. Patient to follow up with Dr. Garcia. Patient tolerated HD well yesterday. Had BM last night and feels better. She still reports concerns in regards to dark urine and was reassured and reminded to follow up with urologist outpatient. She denies f/c/n/ v, chest pain, shortness of breath. Continues to have lower abdominal pain that does not radiate but reports pain is located in area where she receives her Heparin injections. No further complaints. Hospital course: Ms. Riley is a 62 year old female - Time Spent with Patient Total time spent providing and/or coordinating discharge services: - Constitutional Vitals: Temp Pulse Resp BP Pulse Ox 97.8 F 86 19 100/62 99 10/26/17 08:04 10/26/17 08:04 10/26/17 08:04 10/26/17 08:04 10/26/17 08:04 General appearance: Present: A&O X 3, no acute distress, answers questions appropriately - Head Head exam: Present: atraumatic - Eye Eye exam: Present: normal appearance - Neck Neck exam general surgery: Present: full ROM, supple, trachea midline - Respiratory Respiratory exam: Present: CTAB. Absent: rales, rhonchi, wheezes, tachypnea - Cardiovascular Cardiovascular exam: Present: RRR. Absent: systolic murmur, tachycardia - GI/Abdominal GI/Abdominal exam: Present: normal bowel sounds. Absent: bruit, guarding, hepatomegaly, mass, rebound, tenderness - Additional comments: pereira catheter urine unchanged from yesterday. Contains dark-brown colored urine. - Extremities Exam Extremities exam: Present: full ROM, warm, radial pulses palpable and symmetrical Additional comments: Right foot ulcer moist and clean. - Neurological Exam Neurological exam: Present: alert, CN II-XII intact, oriented X3, no focal deficits
[2017-10-26] MEDS: Tiotropium 18 MCG inhalation IH SCH (10:35)
[2017-10-26] MEDS: Budesonide/Formoterol 160/4.5 MDI IH SCH (10:37)
[2017-10-26] MEDS: COLESTIPOL HCL 1 GM PO SCH (10:56)
--- NOTE | 2017-10-26 12:05 | Physician Discharge Referral ---
<Luis Tate - Last Filed: 10/26/17 12:03> ExtendedCare Referral Info Transfer To: Extended care facility Provider in Charge: Papito Stoll Provider in Charge after Transfer: PCP Institutional Level of Care: Skilled - Diagnosis (1) UTI (urinary tract infection) Priority: Primary Status: Acute (2) Hydroureter on right Priority: Secondary Status: Acute (3) Lower abdominal pain Priority: Primary Status: Acute (4) DMII (diabetes mellitus, type 2) Priority: Secondary Status: Acute (5) ESBL (extended spectrum beta-lactamase) producing bacteria infection Priority: Secondary Status: Acute (6) ESRD (end stage renal disease) on dialysis Priority: Secondary Status: Acute (7) Anemia Priority: Secondary Status: Chronic (8) Diastolic CHF Priority: Secondary Status: Acute (9) Sacral ulcer Priority: Secondary Status: Chronic Prognosis: Fair Aware of Diagnosis: Patient Aware of Prognosis: Patient - Transfer Medications Prescriptions: Docusate Sodium [Colace] 100 mg PO BID #60 capsule Meropenem 500 mg IV DAILY 8 Days #8 vial Home Medications: Clopidogrel [Plavix] 75 mg PO DAILY 05/11/15 [History] Omeprazole [PriLOSEC] 20 mg PO BID 05/11/15 [History] Colestipol HCl [Colestid] 1 gm PO BID 06/12/15 [History] Carvedilol 12.5 mg PO BID 10/28/15 [History] Calcium Acetate [Phos-LO] 1,334 mg PO TIDWM 09/06/16 [History] Folic Acid/Vit Bcomp,C [Renal Vitamin Tablet] 0.8 mg PO DAILY 04/15/17 [History] ARIPiprazole [Abilify] 10 mg PO DAILY 09/13/17 [History] Amitriptyline HCl 100 mg PO HS 09/13/17 [History] Aspirin Enteric Coated [Aspirin EC] 81 mg PO DAILY 09/13/17 [History] Budesonide/Formoterol 160/4.5 [Symbicort 160/4.5] 2 puff IH BIDR 09/13/17 [ History] Cholecalciferol (Vitamin D3) [Vitamin D3] 50,000 unit PO TH 09/13/17 [History] Insulin LISPRO [HumaLOG] 20 units SQ TIDAC 09/13/17 [History] Lidocaine/Prilocaine CREAM [Emla] 1 appl TP AD PRN 09/13/17 [History] OxyCODONE ER (12 HR) [OxyCONTIN] 20 mg PO Q12HR 09/13/17 [History] OxyCODONE/APAP 10/325 [Percocet 10/325 MG] 1 tab PO Q6H PRN 09/13/17 [History] Oxygen 2 l NS AD 09/13/17 [History] Sennosides [Senna] 8.6 mg PO BID 09/13/17 [History] Sevelamer [Renvela] 800 mg PO TIDWM 09/13/17 [History] Albuterol Neb [AccuNeb] 0.63 mg IH Q6H PRN 10/18/17 [History] Gabapentin [Neurontin] 100 mg PO TID #60 capsule 10/21/17 [Rx] Insulin Glargine,Hum.rec.anlog [Lantus Solostar] 45 unit SQ BID #0 10/21/17 [Rx] Rosuvastatin [Crestor] 10 mg PO HS #15 tablet 10/21/17 [Rx] Docusate Sodium [Colace] 100 mg PO BID #60 capsule 10/26/17 [Rx] Meropenem 500 mg IV DAILY 8 Days #8 vial 10/26/17 [Rx] amLODIPine [Norvasc] 5 mg PO DAILY 10/26/17 [History] metOLazone [Zaroxolyn] 1 tab PO DAILY 10/26/17 [History] Allergies/Adverse Reactions: 3 Allergy/AdvReac Type Severity Reaction Status Date / Time No Known Allergies Allergy Verified 10/18/17 02:12 - Respiratory Orders None Smoking Cessation: Smoking cessation has been advised. For more information, call the [place] [employer] Quit Line at 8-275-XXSL-NOW. - Advance Directives Code Status: Full Code - Mobility Orders Other (ambulate with walker) - Diet Orders Regular CERTIFICATION: I certify that the transfer of the above named patient to an Extended Care Facility is necessary for the continuing treatment of the diagnosis listed. The above information is true and accurate reflection of patient's current condition. Confidential - Redisclosure prohibited without a patient's written consent. <Papito Stoll T - Last Filed: 10/26/17 14:24> - Respiratory Orders Smoking Cessation: Smoking cessation has been advised. For more information, call the [place] [employer] Quit Line at 8-261-WMZF-NOW. - Diet Orders Renal, Cardiac CERTIFICATION: I certify that the transfer of the above named patient to an Extended Care Facility is necessary for the continuing treatment of the diagnosis listed. The above information is true and accurate reflection of patient's current condition. Confidential - Redisclosure prohibited without a patient's written consent.
--- NOTE | 2017-10-26 12:12 | Nephrology Progress Note ---
Date of Encounter: 10/26/17 Time of Encounter: 12:09 - Assessment and Plan (1) ESRD (end stage renal disease) on dialysis Current Visit: No Status: Acute HD MWF. Renal diet. Renal dose medications. Additional dialysis as needed. Anticipate discharge today. (2) Anemia Current Visit: No Status: Suspected Monitor for bleeding. Qualifiers: Anemia type: other cause Other causes of anemia: chronic disease, other Qualified Code(s): D63.8 - Anemia in other chronic diseases classified elsewhere (3) HTN (hypertension) Current Visit: No Status: Chronic Titrate antihypertensive medications as needed. Qualifiers: Hypertension type: essential hypertension Qualified Code(s): I10 - Essential (primary) hypertension (4) Hyperphosphatemia Current Visit: Yes Status: Acute Continue binders. May need outpatient titration. (5) DMII (diabetes mellitus, type 2) Current Visit: No Status: Acute Qualifiers: Qualified Code(s): E11.9 - Type 2 diabetes mellitus without complications Subjective Principal diagnosis: ESRD Interval history: Patient seen. No new complaints. She anticipates being discharged today. Objective - Vital Signs Vital signs: Vital Signs Temp Pulse Resp BP Pulse Ox 10/26/17 10:44 97.7 F 72 20 120/68 100 10/26/17 08:04 97.8 F 86 19 100/62 99 10/26/17 04:05 97.6 F 72 20 111/49 100 10/25/17 23:43 97.5 F L 76 20 134/67 98 10/25/17 20:12 18 96 10/25/17 20:00 98.1 F 79 17 123/64 97 10/25/17 16:51 97.7 F 91 18 120/68 97 10/25/17 15:15 97.9 F 20 157/86 10/25/17 15:00 151/77 10/25/17 14:45 145/73 10/25/17 14:30 143/69 10/25/17 14:15 132/64 10/25/17 14:00 128/84 10/25/17 13:45 129/74 10/25/17 13:30 133/63 10/25/17 13:15 125/55 10/25/17 13:00 156/85 10/25/17 12:45 131/60 10/25/17 12:30 140/64 10/25/17 12:15 146/61 Intake and Output 10/25/17 10/26/17 10/26/17 23:59 07:59 15:59 Intake Total Output Total 300 / 300 100 / 100 Balance -290 / -290 -100 / -100 Intake: IV Fluids Merrem 1,000 MG In Water for inj. (sterile) 10 ML @ 200 mls/ hr IVP Q8HR NATALIE Rx#:[id number] Oral 0 / 0 Output: Catheter 300 / 300 100 / 100 Urethral (Hawkins) 300 / 300 100 / 100 Other: Stool Size Moderate Stool Consistency formed Stool Color Brown # Bowel Movements 1 Blood Glucose* [phone] - General Appearance General appearance: Present: well-developed, well-nourished EENT: Present: ATNC Cardiology: Present: regular rate Neurologic: Present: alert and oriented x3 Psychiatric: Present: mood/affect appropriate - Lab 10/26/17 05:15 10/26/17 05:15 Most recent lab results Calcium 8.5 mg/dL (8.6-10.3) L 10/26/17 05:15 Phosphorus 8.2 mg/dL (2.7-4.5) H 10/25/17 04:40 Magnesium 2.2 mg/dL (1.6-2.6) 10/25/17 04:40 Consult Discharge Plan - Plan Referrals: Tristen Quintana MD [Partnered Physician] - 10/28/17 1:20 pm NONE,PCP [Primary Care Provider] - Prescriptions: Docusate Sodium [Colace] 100 mg PO BID #60 capsule Meropenem 500 mg IV DAILY 8 Days #8 vial
--- NOTE | 2017-10-26 15:39 | Physician Discharge Referral ---
Home Health/Hosp Referral Info Transfer to: Home Health Attending Provider: Papito Stoll Provider in Charge Post Discharge: PCP - Diagnosis (1) UTI (urinary tract infection) Priority: Primary Status: Acute (2) Hydroureter on right Priority: Secondary Status: Acute (3) Lower abdominal pain Priority: Primary Status: Acute (4) DMII (diabetes mellitus, type 2) Priority: Secondary Status: Acute (5) ESBL (extended spectrum beta-lactamase) producing bacteria infection Priority: Secondary Status: Acute (6) ESRD (end stage renal disease) on dialysis Priority: Secondary Status: Acute (7) Anemia Priority: Secondary Status: Chronic (8) Diastolic CHF Priority: Secondary Status: Acute (9) Sacral ulcer Priority: Secondary Status: Chronic - Respiratory Orders None Smoking Cessation: Smoking cessation has been advised. For more information, call the [employer] Quit Line at 5-003-QHUY-NOW. - Diet/Nutrition Diet/Nutrition Orders: Regular - Activity Activity Orders: Walker - Services Needed Following services are medically necessary services: Home Health Aide - Transfer Medications Prescriptions: Docusate Sodium [Colace] 100 mg PO BID #60 capsule Meropenem 500 mg IV DAILY 8 Days #8 vial Home Medications: Clopidogrel [Plavix] 75 mg PO DAILY 05/11/15 [History] Omeprazole [PriLOSEC] 20 mg PO BID 05/11/15 [History] Colestipol HCl [Colestid] 1 gm PO BID 06/12/15 [History] Carvedilol 12.5 mg PO BID 10/28/15 [History] Calcium Acetate [Phos-LO] 1,334 mg PO TIDWM 09/06/16 [History] Folic Acid/Vit Bcomp,C [Renal Vitamin Tablet] 0.8 mg PO DAILY 04/15/17 [History] ARIPiprazole [Abilify] 10 mg PO DAILY 09/13/17 [History] Amitriptyline HCl 100 mg PO HS 09/13/17 [History] Aspirin Enteric Coated [Aspirin EC] 81 mg PO DAILY 09/13/17 [History] Budesonide/Formoterol 160/4.5 [Symbicort 160/4.5] 2 puff IH BIDR 09/13/17 [ History] Cholecalciferol (Vitamin D3) [Vitamin D3] 50,000 unit PO TH 09/13/17 [History] Insulin LISPRO [HumaLOG] 20 units SQ TIDAC 09/13/17 [History] Lidocaine/Prilocaine CREAM [Emla] 1 appl TP AD PRN 09/13/17 [History] OxyCODONE ER (12 HR) [OxyCONTIN] 20 mg PO Q12HR 09/13/17 [History] OxyCODONE/APAP 10/325 [Percocet 10/325 MG] 1 tab PO Q6H PRN 09/13/17 [History] Oxygen 2 l NS AD 09/13/17 [History] Sennosides [Senna] 8.6 mg PO BID 09/13/17 [History] Sevelamer [Renvela] 800 mg PO TIDWM 09/13/17 [History] Albuterol Neb [AccuNeb] 0.63 mg IH Q6H PRN 10/18/17 [History] Gabapentin [Neurontin] 100 mg PO TID #60 capsule 10/21/17 [Rx] Insulin Glargine,Hum.rec.anlog [Lantus Solostar] 45 unit SQ BID #0 10/21/17 [Rx] Rosuvastatin [Crestor] 10 mg PO HS #15 tablet 10/21/17 [Rx] Docusate Sodium [Colace] 100 mg PO BID #60 capsule 10/26/17 [Rx] Meropenem 500 mg IV DAILY 8 Days #8 vial 10/26/17 [Rx] amLODIPine [Norvasc] 5 mg PO DAILY 10/26/17 [History] metOLazone [Zaroxolyn] 1 tab PO DAILY 10/26/17 [History] Allergies/Adverse Reactions: 3 Allergy/AdvReac Type Severity Reaction Status Date / Time No Known Allergies Allergy Verified 10/18/17 02:12 Certification: Further, I certify that my clinical findings support that this patient is homebound (i.e. absences from home require considerable and taxing effort and are for medical reasons or denominational services or infrequently or short duration when for other reasons) because: Homebound Reason: Patient requires assistance of a person or device to safely leave home Attestation: My signature below is to certify that this patient is under my care and that I, or nurse practitioner, or a physician's senior sales assistant working with me, has a face-to -face encounter with this patient.
--- NOTE | 2017-10-26 16:38 | Physician Discharge Referral ---
Home Health/Hosp Referral Info Transfer to: Home Health Attending Provider: Papito Stoll Provider in Charge Post Discharge: PCP - Diagnosis (1) UTI (urinary tract infection) Priority: Primary Status: Acute (2) Hydroureter on right Priority: Secondary Status: Acute (3) Lower abdominal pain Priority: Primary Status: Acute (4) DMII (diabetes mellitus, type 2) Priority: Secondary Status: Acute (5) ESBL (extended spectrum beta-lactamase) producing bacteria infection Priority: Secondary Status: Acute (6) ESRD (end stage renal disease) on dialysis Priority: Secondary Status: Acute (7) Anemia Priority: Secondary Status: Chronic (8) Diastolic CHF Priority: Secondary Status: Acute (9) Sacral ulcer Priority: Secondary Status: Chronic - Respiratory Orders None Smoking Cessation: Smoking cessation has been advised. For more information, call the [employer] Quit Line at 1-120-BTVV-NOW. - Diet/Nutrition Diet/Nutrition Orders: Regular - Activity Activity Orders: Walker - Services Needed Following services are medically necessary services: Home Health Aide - Transfer Medications Prescriptions: Docusate Sodium [Colace] 100 mg PO BID #60 capsule Ertapenem [INVanz] 500 mg IVPB DAILY #8 vial Home Medications: Clopidogrel [Plavix] 75 mg PO DAILY 05/11/15 [History] Omeprazole [PriLOSEC] 20 mg PO BID 05/11/15 [History] Colestipol HCl [Colestid] 1 gm PO BID 06/12/15 [History] Carvedilol 12.5 mg PO BID 10/28/15 [History] Calcium Acetate [Phos-LO] 1,334 mg PO TIDWM 09/06/16 [History] Folic Acid/Vit Bcomp,C [Renal Vitamin Tablet] 0.8 mg PO DAILY 04/15/17 [History] ARIPiprazole [Abilify] 10 mg PO DAILY 09/13/17 [History] Amitriptyline HCl 100 mg PO HS 09/13/17 [History] Aspirin Enteric Coated [Aspirin EC] 81 mg PO DAILY 09/13/17 [History] Budesonide/Formoterol 160/4.5 [Symbicort 160/4.5] 2 puff IH BIDR 09/13/17 [ History] Cholecalciferol (Vitamin D3) [Vitamin D3] 50,000 unit PO TH 09/13/17 [History] Insulin LISPRO [HumaLOG] 20 units SQ TIDAC 09/13/17 [History] Lidocaine/Prilocaine CREAM [Emla] 1 appl TP AD PRN 09/13/17 [History] OxyCODONE ER (12 HR) [OxyCONTIN] 20 mg PO Q12HR 09/13/17 [History] OxyCODONE/APAP 10/325 [Percocet 10/325 MG] 1 tab PO Q6H PRN 09/13/17 [History] Oxygen 2 l NS AD 09/13/17 [History] Sennosides [Senna] 8.6 mg PO BID 09/13/17 [History] Sevelamer [Renvela] 800 mg PO TIDWM 09/13/17 [History] Albuterol Neb [AccuNeb] 0.63 mg IH Q6H PRN 10/18/17 [History] Gabapentin [Neurontin] 100 mg PO TID #60 capsule 10/21/17 [Rx] Insulin Glargine,Hum.rec.anlog [Lantus Solostar] 45 unit SQ BID #0 10/21/17 [Rx] Rosuvastatin [Crestor] 10 mg PO HS #15 tablet 10/21/17 [Rx] Docusate Sodium [Colace] 100 mg PO BID #60 capsule 10/26/17 [Rx] Ertapenem [INVanz] 500 mg IVPB DAILY #8 vial 10/26/17 [Rx] amLODIPine [Norvasc] 5 mg PO DAILY 10/26/17 [History] metOLazone [Zaroxolyn] 1 tab PO DAILY 10/26/17 [History] Allergies/Adverse Reactions: 3 Allergy/AdvReac Type Severity Reaction Status Date / Time No Known Allergies Allergy Verified 10/18/17 02:12 Certification: Further, I certify that my clinical findings support that this patient is homebound (i.e. absences from home require considerable and taxing effort and are for medical reasons or adventist services or infrequently or short duration when for other reasons) because: Homebound Reason: Patient requires assistance of a person or device to safely leave home Attestation: My signature below is to certify that this patient is under my care and that I, or nurse practitioner, or a physician's front end assistant working with me, has a face-to -face encounter with this patient.
[2017-10-26 18:11] VITALS: BP 130/76
[2017-10-26] MEDS ORDERED: Ertapenem 500 MG in Water for inj. (sterile) 10 ML IVP SCH (19:00)
== END 2017-10-26 19:59 | disposition home health service (06) ==
LOC: 2NNU 23:36 → EMEROO 23:36 → 2NNU 10-24 04:38 → SUATTDRO 10-24 15:05 → 2ANU 10-25 22:52
PROVIDERS: ADMIT Internal Medicine Hematology & Oncology; ATTEND Internal Medicine

== ENCOUNTER 2017-11-11 11:36 | Inpatient (IN) ==
[2017-11-11] MEDS ORDERED: Nitroglycerin 0.4 MG TAB.SUBL SL ONE (11:45)
[2017-11-11] MEDS ORDERED: Aspirin 81 MG TAB.CHEW PO ONE (11:45)
--- NOTE | 2017-11-11 12:01 | Emergency Department Note ---
Disposition Clinical Impression: ESRD (end stage renal disease) Chest pain Qualifiers: Qualified Code(s): R07.9 - Disposition: Admitted As Inpatient Condition: Fair Referrals: Tristen Quintana MD [Primary Care Provider] - Forms: ED Satisfaction Letter Time of Disposition: 15:50 Chest Pain HPI - General Chief Complaint: ED Chest Pain Stated Complaint: Chest Pain/Fall Time Seen by Provider: 11/11/17 12:00 Source: patient Limitations: no limitations Vital Signs Reviewed: Yes Nursing Notes Reviewed: Yes - History of Present Illness HPI Narrative: 62-year-old female history of ESRD on dialysis, presents complaining of shortness of breath and chest pain, she states that she had chest pain that dropped her to her knees, this happened at home what she was walking around. Patient states that she still is 8 out of 10 chest pain she has a history of CABG and CAD as well. Patient has worsening pain with exertion, she denies fever chills or hemoptysis denies history of PE. 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 Denies: nausea, vomiting, diaphoresis Treatments prior to arrival chest pain: none - Related Data Home Medications Medication Instructions Recorded Confirmed Clopidogrel [Plavix] 75 mg PO DAILY 05/11/15 11/11/17 Omeprazole [PriLOSEC] 20 mg PO BID 05/11/15 11/11/17 Colestipol HCl [Colestid] 1 gm PO BID 06/12/15 11/11/17 Carvedilol 12.5 mg PO BID 10/28/15 11/11/17 Calcium Acetate [Phos-LO] 1,334 mg PO TIDWM 09/06/16 11/11/17 Folic Acid/Vit Bcomp,C [Renal 0.8 mg PO DAILY 04/15/17 11/11/17 Vitamin Tablet] ARIPiprazole [Abilify] 10 mg PO DAILY 09/13/17 11/11/17 Amitriptyline HCl 100 mg PO HS 09/13/17 11/11/17 Aspirin Enteric Coated [Aspirin EC] 81 mg PO DAILY 09/13/17 11/11/17 Budesonide/Formoterol 160/4.5 2 puff IH BIDR 09/13/17 11/11/17 [Symbicort 160/4.5] Cholecalciferol (Vitamin D3) 50,000 unit PO TH 09/13/17 11/11/17 [Vitamin D3] Insulin LISPRO [HumaLOG] 20 units SQ TIDAC 09/13/17 11/11/17 Lidocaine/Prilocaine CREAM [Emla] 1 appl TP AD PRN 09/13/17 11/11/17 OxyCODONE ER (12 HR) [OxyCONTIN] 20 mg PO Q12HR 09/13/17 11/11/17 OxyCODONE/APAP 10/325 [Percocet 1 tab PO Q6H PRN 09/13/17 11/11/17 10/325 MG] Oxygen 2 l NS AD 09/13/17 11/11/17 Sennosides [Senna] 8.6 mg PO BID 09/13/17 11/11/17 Sevelamer [Renvela] 800 mg PO TIDWM 09/13/17 11/11/17 Albuterol Neb [AccuNeb] 0.63 mg IH Q6H PRN 10/18/17 11/11/17 amLODIPine [Norvasc] 5 mg PO DAILY 10/26/17 11/11/17 metOLazone [Zaroxolyn] 1 tab PO DAILY 10/26/17 11/11/17 Collagenase Oint [Santyl] 1 appl TP AD 11/11/17 11/11/17 Oxybutynin [Ditropan] 5 mg PO TID 11/11/17 11/11/17 Previous Rx's Medication Instructions Recorded Gabapentin [Neurontin] 100 mg PO TID #60 capsule 10/21/17 Insulin Glargine,Hum.rec.anlog 45 unit SQ BID #0 10/21/17 [Lantus Solostar] Rosuvastatin [Crestor] 10 mg PO HS #15 tablet 10/21/17 Docusate Sodium [Colace] 100 mg PO BID #60 capsule 10/26/17 Allergies Allergy/AdvReac Type Severity Reaction Status Date / Time No Known Allergies Allergy Verified 11/11/17 11:44 All systems ED: reviewed and negative except as stated. Review of Systems: As Per HPI Constitutional: Denies: fever, chills Eyes: Denies: eye pain ENT ED: Denies: ear pain Cardiovascular: Reports: chest pain. Denies: palpitations Respiratory: Denies: cough, dyspnea Gastrointestinal: Denies: abdominal pain, nausea Genitourinary: Denies: urgency, dysuria Musculoskeletal: Denies: back pain Integumentary: Denies: rash Neurological: Denies: headache Chest Pain PMH - Past Medical History Medical history: Reports: arthritis, asthma, atrial fibrillation, CHF, COPD, coronary artery disease, CVA, DVT, diabetes, dialysis, fibromyalgia, GERD, GI bleed, hyperlipidemia, hypertension, kidney stones, migraine, myocardial infarction, osteoporosis, peripheral artery disease, renal disease, other Surgical history: Reports: angioplasty/stent, appendectomy, cholecystectomy, coronary bypass (CABG), hysterectomy, knee replacement, other, IVC filter Psychiatric history: Reports: anxiety, depression, schizophrenia, previous psychiatric hospitalization, other Prior Cardiac Testing/Procedures: Stenting 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 Absent: respiratory distress - Cardiovascular Cardiovascular exam: Present: tachycardia - Abdominal Exam Abdominal exam: Present: soft. Absent: Non-Tender - Extremities Exam Extremities exam: Present: normal inspection - Expanded Lower Extremity Exam Knee exam: Present: other (knee scars c/w knee replacements) - Neurological Exam Neurological exam: Present: alert, oriented X3 - Skin Skin exam: Present: warm, dry Course Course Narrative: 62-year-old female presents complaining of chest pain, history of CAD, CABG, full chest pain workup ordered nitroglycerin and aspirin Rall, the patient's concerning even though she has multiple ED visits, ESRD, makes her high risk, she is a dialysis patient with Dr. Harrison, plan is for aspirin chest pain workup reassess - Reevaluation(s) Reevaluation #1: Patient patient with heart score of 7, multiple risk factors, progestins improved after nitroglycerin, plan is for admission to the medicine service I spoke with patient's currently chest pain-free admission for medicine as well as for dialysis. Vital Signs Temperature 99.2 F 11/11/17 11:38 Pulse Rate 100 11/11/17 11:38 Respiratory Rate 18 11/11/17 11:38 Blood Pressure 136/61 11/11/17 11:38 O2 Sat by Pulse Oximetry 99 11/11/17 11:38 Temperature 99.2 F 11/11/17 11:38 Pulse Rate 91 11/11/17 13:40 Respiratory Rate 18 11/11/17 13:40 Blood Pressure 129/73 11/11/17 13:40 O2 Sat by Pulse Oximetry 97 11/11/17 13:40 Oxygen Delivery Oxygen Delivery Room Air Chest Pain - Differential Diagnosis Likely: stable angina, unstable angina pectoris, atypical chest pain - Medical Records Medical records reviewed: Yes I reviewed the patient's medical records. - Lab Data Lab results reviewed: Yes I reviewed the patient's lab results. Result diagrams: 11/11/17 11:59 11/11/17 11:59 Lab Results 11/11/17 11/11/17 11/11/17 Range/Units 11:59 11:59 11:59 WBC 10.0 (4.3-11.1) K/mcL RBC 4.41 (3.82-4.97) M/mcL Hgb 11.7 (11.5-15.4) g/dL Hct 37.3 (35.3-44.9) % MCV 84.6 (83.0-100.0) fL MCH 26.5 L (28.0-33.3) pg MCHC 31.4 L (31.6-35.5) g/dL RDW 19.1 H (11.5-14.5) % Plt Count 172 (140-400) K/mcL MPV 10.3 (9.4-12.4) fL Immature Gran % 0.6 (0-4) % Seg Neutrophils % 84.9 % Lymphocytes % 6.0 % Monocytes % 6.4 % Eosinophils % 1.5 % Basophils % 0.6 % Neutrophils # 8.5 (1.6-8.9) K/mcL Lymphocytes # 0.6 (0.6-4.6) K/mcL Monocytes # 0.6 (0.0-1.3) K/mcL Eosinophils # 0.2 (0.0-0.6) K/mcL Basophils # 0.1 (0.0-0.2) K/mcL PT 10.6 (9.4-12.1) Seconds INR 1.0 APTT 30.7 (26.0-36.0) Seconds Sodium 132 L (136-145) mEq/L Potassium 3.4 L (3.5-5.1) mEq/L Chloride 94 L (98-107) mEq/L Carbon Dioxide 26 (23-29) mEq/L BUN 36 H (8-23) mg/dL Creatinine 2.75 H (0.60-1.20) mg/dL Est GFR ( Amer) 21 L (> 60) Est GFR (Non-Af Amer) 17 L (> 60) BUN/Creatinine Ratio 13 (6-26) Glucose 250 H (70-105) mg/dL Calculated Osmolality 291 (280-300) Calcium 9.4 (8.6-10.3) mg/dL Troponin I (< 0.04) ng/mL 11/11/17 Range/Units 11:59 WBC (4.3-11.1) K/mcL RBC (3.82-4.97) M/mcL Hgb (11.5-15.4) g/dL Hct (35.3-44.9) % MCV (83.0-100.0) fL MCH (28.0-33.3) pg MCHC (31.6-35.5) g/dL RDW (11.5-14.5) % Plt Count (140-400) K/mcL MPV (9.4-12.4) fL Immature Gran % (0-4) % Seg Neutrophils % % Lymphocytes % % Monocytes % % Eosinophils % % Basophils % % Neutrophils # (1.6-8.9) K/mcL Lymphocytes # (0.6-4.6) K/mcL Monocytes # (0.0-1.3) K/mcL Eosinophils # (0.0-0.6) K/mcL Basophils # (0.0-0.2) K/mcL PT (9.4-12.1) Seconds INR APTT (26.0-36.0) Seconds Sodium (136-145) mEq/L Potassium (3.5-5.1) mEq/L Chloride (98-107) mEq/L Carbon Dioxide (23-29) mEq/L BUN (8-23) mg/dL Creatinine (0.60-1.20) mg/dL Est GFR ( Amer) (> 60) Est GFR (Non-Af Amer) (> 60) BUN/Creatinine Ratio (6-26) Glucose (70-105) mg/dL Calculated Osmolality (280-300) Calcium (8.6-10.3) mg/dL Troponin I < 0.03 (< 0.04) ng/mL - Radiology Data Radiology results reviewed: Yes I reviewed the patient's radiology results. Chest X-Ray 11/11/17 11:45 IMPRESSION: Diffuse interstitial and bronchial wall thickening may be related to a bronchitis, not significantly changed. No new abnormality identified D/ / You Reyes MD / You Reyes MD Interpreting Provider: You Reyes MD - EKG Data EKG attestation: Yes I reviewed and interpreted this EKG. EKG shows normal: sinus rhythm (94 bpm CA 170 QRS 95 QTc 420 no evidence of acute ischemic changes.) Rate: normal Rhythm: NSR [place]/QRS: normal Interpretation: no acute changes - Core Measures AMI Core Measures Followed: No Heart Score - Score History: Moderately Suspicious EKG: Non Specific repolarisation Disturbance Age: 45-65 Risk Factors: Equal/Greater than 3 risk factor or history of atherosclerotic disease Troponin: Less than normal limit HEART Score Total: 5
[2017-11-11 12:06] LABS: Basophils # 0.1 K/mcL (0.0-0.2); Basophils % 0.6 %; Eosinophils # 0.2 K/mcL (0.0-0.6); Eosinophils % 1.5 %; Hematocrit 37.3 % (35.3-44.9); Hemoglobin 11.7 g/dL (11.5-15.4); Immature Granulocytes % 0.6 % (0-4); Lymphocytes # 0.6 K/mcL (0.6-4.6); Mean Corpuscular HGB Conc 31.4 g/dL (31.6-35.5); Mean Corpuscular Hemoglobin 26.5 pg (28.0-33.3); Mean Corpuscular Volume 84.6 fL (83.0-100.0); Mean Platelet Volume 10.3 fL (9.4-12.4); Monocytes # 0.6 K/mcL (0.0-1.3); Monocytes % 6.4 %; Neutrophils # 8.5 K/mcL (1.6-8.9); Platelet Count 172 K/mcL (140-400); Red Blood Count 4.41 M/mcL (3.82-4.97); Red Cell Distribution Width 19.1 % (11.5-14.5); Segmented Neutrophils % 84.9 %
[2017-11-11 12:11] LABS: Prothrombin Time 10.6 Seconds (9.4-12.1)
[2017-11-11 12:14] LABS: Activated Partial Thrombo Time 30.7 Seconds (26.0-36.0)
[2017-11-11 12:21] LABS: Calcium 9.4 mg/dL (8.6-10.3); Potassium 3.4 mEq/L (3.5-5.1)
--- NOTE | 2017-11-11 12:23 | Emergency Department Note ---
START Narrative - START START: I examined this patient and my medical decision-making was reviewed with the Resident Physician. I agree with the documented findings, disposition and treatment plan as described except to the extent set forth below. 62 yo F here for chest pain that started at home. feels like a heavy pressure on her chest. hx of CAD. on HD three times per week. ekg stable check labs, cxr, ACS rule out
[2017-11-11] MEDS ORDERED: Acetaminophen 325 MG TABLET PO PRN (14:29)
[2017-11-11] MEDS ORDERED: Naloxone 0.4 MG/ML INJ IVP PRN (14:29)
[2017-11-11] MEDS ORDERED: Nicotine 14 MG PATCH.TD24 TD PRN (14:40)
[2017-11-11] MEDS ORDERED: Albuterol Neb 0.63 MG/3 ML VIAL IH PRN (14:43)
[2017-11-11] MEDS ORDERED: *HR* OxyCODONE/APAP 10/325 TABLET PO PRN (14:43)
[2017-11-11] MEDS ORDERED: D5% in Water 1,000 ML IVC PRN (14:46)
[2017-11-11] MEDS ORDERED: *HR* Dextrose 50 % in Water (Syg) 50 ML SYRINGE IVP PRN (14:46)
[2017-11-11] MEDS ORDERED: Dextrose Gel 15 GM/37.5 ML TUBE PO PRN ×2 (14:46)
--- NOTE | 2017-11-11 15:09 | Internal Med History&Physical ---
Date of Encounter: 11/11/17 Time of Encounter: 13:45 Assessment and Plan (1) Chest pain Current visit: Yes Status: Acute Acute chest pressure that began this morning with radiation to left arm, left neck, and back. Patient reports previous incident many years ago. Patient has a lengthy cardiac history including double bypass, and stent placement 5. Patient is also currently smoking 1 pack per day. Possible concern for PE d/t quick onset of CP and SOB this morning given pts. hx of DVT recently. D-dimer ordered. Patient's most recent echo was on 05/14/17 and showed LVEF of 60%, normal left ventricular size and systolic function, mild increase in LV wall thickness, indeterminate left ventricular diastolic function, normal right ventricular size and function, mild mitral regurgitation, mild tricuspid regurgitation, and mild pulmonary hypertension. Initial troponin <0.03. Will trend 2. Continuous cardiac telemetry. Aspirin given in ED and will continue daily. Rosuvastatin 20 mg now and will continue 10 mg HS tomorrow. Will consider cardiology consult if troponins are abnormal. Pt. discussed w/Dr. Berkowitz who is in agreement w/plan of care. Pt. is high risk for cardiac event based on current sx, hx, and risk factors. Observation. Qualifiers: Chest pain type: other chest pain Qualified Code(s): R07.89 - Other chest pain; R07.8 - Other chest pain (2) SOB (shortness of breath) Current visit: Yes Status: Acute Acute on chronic mild SOB and dyspnea. Pt. has hx of CHF and COPD. Supplemental O2 w/titration and SpO2 monitoring. Xopenex 0.63 Q6 scheduled. 40 mg PO prednisone daily. Mucinex DM for cough. Falls/safety precautions. (3) Falls Current visit: Yes Status: Acute Hx of chronic falls w/most recent today x2. Pt. denies injury or blacking out. Falls/safety precautions. PT/OT consults ordered to assess patient's ambulation strength, stability, and safety. Qualifiers: Encounter type: initial encounter Qualified Code(s): W19.XXXA - Unspecified fall, initial encounter (4) CAD (coronary artery disease) Current visit: Yes Status: Chronic Hx of chronic CAD. Continuous cardiac telemetry. EKG today shows sinus rhythm with frequent supraventricular premature complexes. Continue pts. Plavix, aspirin, Colestid, Norvasc, carvedilol, and Crestor. SL nitro PRN d/t current chest pressure. Qualifiers: Coronary Disease-Associated Artery/Lesion type: [place] artery [place] vs. transplanted heart: [place] heart Associated angina: without angina Qualified Code(s): I25.10 - Atherosclerotic heart disease of [place] coronary artery without angina pectoris (5) COPD (chronic obstructive pulmonary disease) Current visit: Yes Status: Chronic Hx of chronic COPD. Mild SOB and cough present. 40 mg PO predisone daily. Supplemental O2 w/titration and SpO2 monitoring. Xopenex 0.63 Q6 scheduled. Azithromycin 500 mg IVPB for bronchitis as seen on 1-View CXR. Qualifiers: COPD type: chronic bronchitis Chronic bronchitis type: simple Qualified Code(s): J41.0 - Simple chronic bronchitis (6) CHF (congestive heart failure) Current visit: Yes Status: Chronic Hx of chronic CHF. Stable. Qualifiers: Congestive heart failure type: unspecified Congestive heart failure chronicity: chronic Qualified Code(s): I50.9 - Heart failure, unspecified (7) Diabetes Current visit: Yes Status: Chronic Hx of chronic diabetes controlled with insulin. BG checks before meals at bedtime. A1c in a.m. labs. Will continue pts. Lispro and glargine insulins and add low-dose correction insulin sliding scale with hypoglycemic protocol. 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 Pt. reports she was dialyzed yesterday. Nephrology consult for Dr. Rivers ordered and discussed for inpatient dialysis tomorrow and I appreciate the consult. Will use IV fluids judiciously, avoid nephrotoxins, and monitor I&O and daily weight. (9) HLD (hyperlipidemia) Current visit: Yes Status: Chronic Hx of chronic HLD. Lipid panel in a.m. labs. Continue pts. Rosuvastatin 20 mg now d/t chest pressure and continue 10 mg HS tomorrow. Continue Colestid. Qualifiers: Hyperlipidemia type: pure hypercholesterolemia Qualified Code(s): E78.00 - Pure hypercholesterolemia, unspecified; E78.0 - Pure hypercholesterolemia (10) HTN (hypertension) Current visit: Yes Status: Chronic Hx of chronic HTN. Monitor pt. and VS. Continue pts. Norvasc and carvedilol. Qualifiers: Hypertension type: essential hypertension Qualified Code(s): I10 - Essential (primary) hypertension (11) Sacral ulcer Current visit: Yes Status: Chronic Hx of chronic sacral ulcer. Daily wound care ordered. Turn and position Q2HR. Qualifiers: Non-pressure ulcer stage: unspecified non-pressure ulcer stage Qualified Code(s): L98.429 - Non-pressure chronic ulcer of back with unspecified severity (12) Ulcer of left heel Current visit: Yes Status: Chronic Hx of chronic ulcer of left heel. Daily wound care ordered. Qualifiers: Non-pressure ulcer stage: unspecified non-pressure ulcer stage Qualified Code(s): L97.429 - Non-pressure chronic ulcer of left heel and midfoot with unspecified severity (13) DVT prophylaxis Current visit: Yes Status: Acute Heparin 5,000 units SQ Q8 for DVT prophylaxis. Monitor pt. for signs of bleeding. Internal Medicine - H&P: HPI Chief complaint: Chest pain/SOB Admitted From: Emergency Dept Plans for Post Hospital Care: Home History of present illness: Ms. Riley is a 62 year old female with medical hx of arthritis, asthma, atrial fibrillation, CHF, COPD, CAD, CVA, DVT, diabetes controlled with insulin, dialysis on //, fibromyalgia, GERD, GI bleed, HLD, HTN, kidney stones, migraine, HI, osteoporosis, PAD, and ESRD presents from the ED with chief complaint of chest pain and shortness of breath that began this morning with radiation to left arm, left neck, and back. Pt. states this hasn't happened in a long time. Pt. also reports falling 2x today d/t the chest pressure and SOB. Denies blacking out or hurting herself. Pt. reports extensive cardiac hx and cough. Denies recent illness, fever, chills, nausea, vomiting, headache, changes in vision, double pain, diarrhea, constipation, unusual bleeding, dizziness, lightheadedness, pre-syncope, or syncope. Past Med Surg Social Fam HX - Past Medical History Source: patient, old records reviewed Medical history: arthritis, asthma, atrial fibrillation, CHF, COPD, coronary artery disease, CVA, DVT, diabetes, dialysis, fibromyalgia, GERD, GI bleed, hyperlipidemia, hypertension, kidney stones, migraine, myocardial infarction, osteoporosis, peripheral artery disease, renal disease, other Psychiatric history: anxiety, depression, schizophrenia, previous psychiatric hospitalization, other - Past Surgical History Surgical History: angioplasty/stent (x5), appendectomy, cholecystectomy, coronary bypass (CABG) (Double), hysterectomy, knee replacement, other, IVC filter - Social History Smoking Status: Current every day smoker Packs per day: 1 PPD Smokeless Tobacco Status: No Alcohol use: none Drug use: none Current living situation: Home Activity Level: Independent ambulation Recent Out of Country Travel Within the Last 8 Weeks: No Exposure or Possible Exposure to Illness During Travel: No - Family History Father Race: Family Member Ethnicity: Non- Living Status: Age at : 53 Cause of : Polycythemia Hx Family Cardiac Disorders: Yes (CAD, HI) Hx Family Cancer: Yes (Polycythemia) Hx Family Endocrine Disorder: Yes (DM) Mother Race: Family Member Ethnicity: Non- Living Status: Still Living Hx Family Respiratory Disorders: Yes (End stage COPD) Brother Race: Family Member Ethnicity: Non- Living Status: Still Living Hx Family Medical Disorders: No Sister Race: Family Member Ethnicity: Non- Living Status: Still Living Hx Family Cardiac Disorders: Yes (CAD) Hx Family GI Disorders: Yes (Gastric bypass) Hx Family Endocrine Disorder: Yes (Thyroid disease) Hx Family Musculoskeletal Disorders: Yes (Arthritis) Internal Medicine - H&P: Meds Clopidogrel [Plavix] 75 mg PO DAILY 05/11/15 [History] Omeprazole [PriLOSEC] 20 mg PO BID 05/11/15 [History] Colestipol HCl [Colestid] 1 gm PO BID 06/12/15 [History] Carvedilol 12.5 mg PO BID 10/28/15 [History] Calcium Acetate [Phos-LO] 1,334 mg PO TIDWM 09/06/16 [History] Folic Acid/Vit Bcomp,C [Renal Vitamin Tablet] 0.8 mg PO DAILY 04/15/17 [History] ARIPiprazole [Abilify] 10 mg PO DAILY 09/13/17 [History] Amitriptyline HCl 100 mg PO HS 09/13/17 [History] Aspirin Enteric Coated [Aspirin EC] 81 mg PO DAILY 09/13/17 [History] Budesonide/Formoterol 160/4.5 [Symbicort 160/4.5] 2 puff IH BIDR 09/13/17 [ History] Cholecalciferol (Vitamin D3) [Vitamin D3] 50,000 unit PO TH 09/13/17 [History] Insulin LISPRO [HumaLOG] 20 units SQ TIDAC 09/13/17 [History] Lidocaine/Prilocaine CREAM [Emla] 1 appl TP AD PRN 09/13/17 [History] OxyCODONE ER (12 HR) [OxyCONTIN] 20 mg PO Q12HR 09/13/17 [History] OxyCODONE/APAP 10/325 [Percocet 10/325 MG] 1 tab PO Q6H PRN 09/13/17 [History] Oxygen 2 l NS AD 09/13/17 [History] Sennosides [Senna] 8.6 mg PO BID 09/13/17 [History] Sevelamer [Renvela] 800 mg PO TIDWM 09/13/17 [History] Albuterol Neb [AccuNeb] 0.63 mg IH Q6H PRN 10/18/17 [History] Gabapentin [Neurontin] 100 mg PO TID #60 capsule 10/21/17 [Rx] Insulin Glargine,Hum.rec.anlog [Lantus Solostar] 45 unit SQ BID #0 10/21/17 [Rx] Rosuvastatin [Crestor] 10 mg PO HS #15 tablet 10/21/17 [Rx] Docusate Sodium [Colace] 100 mg PO BID #60 capsule 10/26/17 [Rx] amLODIPine [Norvasc] 5 mg PO DAILY 10/26/17 [History] metOLazone [Zaroxolyn] 1 tab PO DAILY 10/26/17 [History] Collagenase Oint [Santyl] 1 appl TP AD 11/11/17 [History] Oxybutynin [Ditropan] 5 mg PO TID 11/11/17 [History] 3 Allergy/AdvReac Type Severity Reaction Status Date / Time No Known Allergies Allergy Verified 11/11/17 11:44 All Systems PM: A 10-system review of systems was performed and is negative for pertinent findings except as documented above in the HPI. - Constitutional Constitutional: no chills, no fever(s), no night sweats - EENT Eyes: no change in vision, no discharge, no pain, no photophobia Ears: no ear discharge, no ear pain, no tinnitus Nose, mouth and throat: no dysphagia, no nasal discharge, no neck pain, no sore throat - Breasts Breasts: as per HPI - Cardiovascular Cardiovascular ROS IM: as per HPI, chest pain (Pressure centralized in chest), dyspnea, dyspnea on exertion, edema (Chronic pedal edema bilaterally), irregular heart rhythm (Hx of atrial fibrillation), no diaphoresis, no lightheadedness, no palpitations, no syncope - Respiratory Respiratory: as per HPI, cough, dyspnea, dyspnea on exertion, no wheezing, no excessive phlegm production - Gastrointestinal Gastrointestinal: no abdominal pain, no diarrhea, no hematemesis, no hematochezia, no melena, no nausea, no vomiting - Genitourinary Genitourinary: no change in urinary stream, no dysuria, no flank pain, no hematuria Menstruation: as per HPI, post hysterectomy - Musculoskeletal Musculoskeletal ROS IM: as per HPI, arthralgias, no numbness, no tingling - Integumentary Integumentary IM: sores (Decubitus ulcers on the sacrum and left heel), no rash , no unusual bruising - Neurological Neurological ROS: no confusion, no convulsions, no focal weakness, no numbness, no tingling, no tremor(s) - Psychiatric Psychiatric: as per HPI, anxiety, depression, other (Schizophrenia) - Endocrine Endocrine IM: as per HPI - Hematologic/Lymphatic Hematologic/Lymphatic: no easy bruising - Allergic/Immunologic Allergic/Immunologic: as per HPI - Constitutional Vitals: Temp Pulse Resp BP Pulse Ox 97.4 F L 85 18 118/66 99 11/11/17 14:39 11/11/17 14:39 11/11/17 14:39 11/11/17 14:39 11/11/17 14:39 General appearance: Present: cooperative, mild distress (Mild SOB), A&O X 3, pleasant, obese, answers questions appropriately - Head Head exam: Present: atraumatic, normocephalic - Eye Eye exam: Present: PERRL, conjuntiva pink, sclera anicteric Pupils: Present: PERRL - ENT ENT exam: Present: normal exam - Neck Neck exam general surgery: Present: normal inspection - Respiratory Respiratory exam: Present: accessory muscle use, decreased breath sounds - Cardiovascular Cardiovascular exam: Present: RRR, +S1, +S2. Absent: diastolic murmur, gallop, rubs, systolic murmur - GI/Abdominal GI/Abdominal exam: Present: normal bowel sounds, soft, no peritoneal signs. Absent: distended, tenderness - Rectal Rectal exam: Present: deferred - Additional comments: exam deferred. - Extremities Exam Extremities exam: Present: pedal edema (Bilateral w/chronic cellulitis of LEs), warm, radial pulses palpable and symmetrical. Absent: calf tenderness, cyanotic - Back Exam Back exam: Present: normal inspection - Neurological Exam Neurological exam: Present: CN II-XII intact, oriented X3, no focal deficits. Absent: pronater drift, facial droop, speech deficit - Psychiatric Psychiatric exam: Present: normal affect, normal mood - Skin Skin exam: Present: dry, intact Internal Med - H&P Results - Labs CBC & Chem 7: 11/11/17 11:59 11/11/17 11:59 - EKG Data EKG shows normal: sinus rhythm - EKG Data Prior EKG available for review: no EKG comments: 11/11/17 15:18 EKG dated 11/11/17 shows sinus rhythm with frequent supraventricular premature complexes. - Diagnostic Studies Chest x-ray Additional comments: Impressions Chest X-Ray 11/11/17 11:45 IMPRESSION: Diffuse interstitial and bronchial wall thickening may be related to a bronchitis, not significantly changed. No new abnormality identified D/ / You Reyes MD / You Reyes MD Interpreting Provider: You Reyes MD
[2017-11-11] MEDS ORDERED: Insulin LISPRO 300 UNITS/3 ML VIAL SQ SCH ×2 (16:30→21:00)
[2017-11-11] MEDS ORDERED: Azithromycin 500 MG in D5% in Water 250 ML IVPB SCH (17:00)
[2017-11-11] MEDS: Insulin LISPRO 300 UNITS/3 ML VIAL SQ SCH ×2 (17:33)
[2017-11-11] MEDS: *HR* Promethazine 25 MG/ML VIAL IVP PRN (17:34)
[2017-11-11] MEDS: Gabapentin 100 MG CAPSULE PO SCH ×2 (17:34→21:18)
[2017-11-11] MEDS: Calcium Acetate 667 MG CAPSULE PO SCH (17:34)
[2017-11-11] MEDS: *HR* OxyCODONE ER (12 HR) 20 MG TABLET PO SCH (17:35)
[2017-11-11] MEDS: Cholecalciferol (D-3) 1,000 UNIT TABLET PO SCH (17:38)
[2017-11-11] MEDS: predniSONE 20 MG TABLET PO SCH (17:38)
[2017-11-11] MEDS: Budesonide/Formoterol 160/4.5 MDI IH SCH (19:58)
[2017-11-11] MEDS ORDERED: NON-FORMULARY MEDICATION 1 EACH EACH (Carvedilol [Carvedilol] 12.5 MG) PO SCH (21:00)
[2017-11-11] MEDS ORDERED: COLESTIPOL HCL 1 GM PO SCH (21:00)
[2017-11-11] MEDS: Sennosides 8.6 MG TABLET PO SCH (21:17)
[2017-11-11] MEDS: GuaiFENesin/Dextromethorphan TABLET PO SCH (21:18)
[2017-11-11] MEDS: *HR* Heparin 5,000 UNIT/ML VIAL SQ SCH (21:18)
[2017-11-11] MEDS: Insulin DETEMIR 100 UNIT/ML X5UNITS SQ SCH (22:08)
--- NOTE | 2017-11-11 23:31 | Event Note ---
Date of Encounter: 11/11/17 Time of Encounter: 18:00 Discussed with BLANCA and agree with assessment and plan Patient presents with chest pain and shortness of breath; suspect secondary to COPD exacerbation Cardiac biomarkers were negative; suspect chest pain pleuritic due to cough Continue IV Azithromycin and Duoneb
[2017-11-11] MEDS: Ipratropium/Albuterol Neb 3 ML IH SCH (23:52)
[2017-11-12] MEDS: Ipratropium/Albuterol Neb 3 ML IH SCH ×5 (03:33→22:50)
[2017-11-12] MEDS: GuaiFENesin Liq 200 MG/10 ML UDC PO PRN ×2 (05:23→20:29)
[2017-11-12] MEDS: *HR* OxyCODONE ER (12 HR) 20 MG TABLET PO SCH ×2 (05:24→18:00)
[2017-11-12] MEDS: *HR* Heparin 5,000 UNIT/ML VIAL SQ SCH ×3 (05:24→20:29)
[2017-11-12] MEDS: *HR* Promethazine 25 MG/ML VIAL IVP PRN ×3 (05:24→20:45)
[2017-11-12] MEDS: Budesonide/Formoterol 160/4.5 MDI IH SCH ×2 (07:42→22:50)
[2017-11-12 07:57] LABS: Basophils % 0.5 %; Eosinophils % 0.2 %; Hematocrit 32.7 % (35.3-44.9); Hemoglobin 10.2 g/dL (11.5-15.4); Immature Granulocytes % 0.8 % (0-4); Lymphocytes # 0.8 K/mcL (0.6-4.6); Lymphocytes % 13.2 %; Mean Corpuscular HGB Conc 31.2 g/dL (31.6-35.5); Mean Corpuscular Hemoglobin 26.6 pg (28.0-33.3); Mean Corpuscular Volume 85.2 fL (83.0-100.0); Mean Platelet Volume 10.8 fL (9.4-12.4); Monocytes # 0.6 K/mcL (0.0-1.3); Monocytes % 9.7 %; Neutrophils # 4.8 K/mcL (1.6-8.9); Platelet Count 153 K/mcL (140-400); Red Blood Count 3.84 M/mcL (3.82-4.97); Red Cell Distribution Width 18.9 % (11.5-14.5); Segmented Neutrophils % 75.6 %
[2017-11-12 08:00] LABS: Albumin/Globulin Ratio 0.9 (1.1-2.2); Bilirubin,Total 0.3 mg/dL (0.3-1.0); Calcium 8.8 mg/dL (8.6-10.3); Chol/HDL Ratio 3.7 (0-4.9); Globulin 3.3 g/dL (2.4-3.5); Magnesium 2.3 mg/dL (1.6-2.6); Phosphorous 5.8 mg/dL (2.7-4.5); Total Protein 6.3 g/dL (6.4-8.9)
[2017-11-12] MEDS ORDERED: 0.9 % Sodium Chloride 250 ML IVC PRN (08:13)
[2017-11-12 08:46] LABS: Hemoglobin A1C 11.1 %
[2017-11-12] MEDS: predniSONE 20 MG TABLET PO SCH (09:18)
[2017-11-12] MEDS: Gabapentin 100 MG CAPSULE PO SCH ×3 (09:18→20:28)
[2017-11-12] MEDS: Aspirin Enteric Coated 81 MG Tablet PO SCH (09:18)
[2017-11-12] MEDS: amLODIPine 5 MG TABLET PO SCH (09:19)
[2017-11-12] MEDS: Calcium Acetate 667 MG CAPSULE PO SCH ×3 (09:19→17:59)
[2017-11-12] MEDS: Sennosides 8.6 MG TABLET PO SCH ×2 (09:19→20:29)
[2017-11-12] MEDS: ARIPiprazole 10 MG TABLET PO SCH (09:19)
[2017-11-12] MEDS: metOLazone 2.5 MG TABLET PO SCH (09:19)
[2017-11-12] MEDS: Cholecalciferol (D-3) 1,000 UNIT TABLET PO SCH (09:20)
[2017-11-12] MEDS: Renal Vitamin 1 MG CAPSULE PO SCH (09:20)
[2017-11-12] MEDS: GuaiFENesin/Dextromethorphan TABLET PO SCH ×2 (09:20→20:29)
[2017-11-12] MEDS: Insulin LISPRO 300 UNITS/3 ML VIAL SQ SCH ×7 (09:21→20:46)
[2017-11-12] MEDS: Insulin DETEMIR 100 UNIT/ML X5UNITS SQ SCH ×2 (09:28→20:43)
--- NOTE | 2017-11-12 13:51 | Electrocardiograph Report ---
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
--- NOTE | 2017-11-12 15:32 | Nephrology Consult Note ---
Date of Encounter: 11/12/17 Time of Encounter: 15:32 Assessment and Plan (1) ESRD (end stage renal disease) on dialysis Current Visit: Yes Status: Chronic HD MWF Patient seen on dialysis today. Renal dose medications Renal diet. Additional dialysis as needed. (2) Chest pain Current Visit: Yes Status: Acute Per primary team. Troponins are negative times 3. Consider cadiology consult. Qualifiers: Chest pain type: other chest pain Qualified Code(s): R07.89 - Other chest pain; R07.8 - Other chest pain (3) Diabetes Current Visit: Yes Status: Chronic Continue home medications. Qualifiers: Diabetes mellitus type: type 2 Diabetes mellitus complication status: with kidney complications Diabetes mellitus complication detail: with chronic kidney disease Diabetes mellitus mcc insulin use: with longitudinal float operator use Chronic kidney disease stage: on chronic dialysis Qualified Code(s): E11.22 - Type 2 diabetes mellitus with diabetic chronic kidney disease; N18.6 - End stage renal disease; Z79.4 - correction (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 of insulin; Z99.2 - Dependence on renal dialysis Past Med Surg Social Fam HX - Past Medical History Medical history: arthritis, asthma, atrial fibrillation, CHF, COPD, coronary artery disease, CVA, DVT, diabetes, dialysis, fibromyalgia, GERD, GI bleed, hyperlipidemia, hypertension, kidney stones, migraine, myocardial infarction, osteoporosis, peripheral artery disease, renal disease, other Psychiatric history: anxiety, depression, schizophrenia, previous psychiatric hospitalization, other - Past Surgical History Surgical History: angioplasty/stent (x5), appendectomy, cholecystectomy, coronary bypass (CABG) (Double), hysterectomy, knee replacement, other, IVC filter - Social History Smoking Status: Current every day smoker Packs per day: 1 PPD Smokeless Tobacco Status: No Alcohol use: none Drug use: none - Family History Father Race: Family Member Ethnicity: Non- Living Status: Age at : 53 Cause of : Polycythemia Hx Family Cardiac Disorders: Yes (CAD, MO) Hx Family Cancer: Yes (Polycythemia) Hx Family Endocrine Disorder: Yes (DM) Mother Race: Family Member Ethnicity: Non- Living Status: Still Living Hx Family Respiratory Disorders: Yes (End stage COPD) Brother Race: Family Member Ethnicity: Non- Living Status: Still Living Hx Family Medical Disorders: No Sister Race: Family Member Ethnicity: Non- Living Status: Still Living Hx Family Cardiac Disorders: Yes (CAD) Hx Family GI Disorders: Yes (Gastric bypass) Hx Family Endocrine Disorder: Yes (Thyroid disease) Hx Family Musculoskeletal Disorders: Yes (Arthritis) Medications and Allergies Clopidogrel [Plavix] 75 mg PO DAILY 05/11/15 [History] Omeprazole [PriLOSEC] 20 mg PO BID 05/11/15 [History] Colestipol HCl [Colestid] 1 gm PO BID 06/12/15 [History] Carvedilol 12.5 mg PO BID 10/28/15 [History] Calcium Acetate [Phos-LO] 1,334 mg PO TIDWM 09/06/16 [History] Folic Acid/Vit Bcomp,C [Renal Vitamin Tablet] 0.8 mg PO DAILY 04/15/17 [History] ARIPiprazole [Abilify] 10 mg PO DAILY 09/13/17 [History] Amitriptyline HCl 100 mg PO HS 09/13/17 [History] Aspirin Enteric Coated [Aspirin EC] 81 mg PO DAILY 09/13/17 [History] Budesonide/Formoterol 160/4.5 [Symbicort 160/4.5] 2 puff IH BIDR 09/13/17 [ History] Cholecalciferol (Vitamin D3) [Vitamin D3] 50,000 unit PO TH 09/13/17 [History] Insulin LISPRO [HumaLOG] 20 units SQ TIDAC 09/13/17 [History] Lidocaine/Prilocaine CREAM [Emla] 1 appl TP AD PRN 09/13/17 [History] OxyCODONE ER (12 HR) [OxyCONTIN] 20 mg PO Q12HR 09/13/17 [History] OxyCODONE/APAP 10/325 [Percocet 10/325 MG] 1 tab PO Q6H PRN 09/13/17 [History] Oxygen 2 l NS AD 09/13/17 [History] Sennosides [Senna] 8.6 mg PO BID 09/13/17 [History] Sevelamer [Renvela] 800 mg PO TIDWM 09/13/17 [History] Albuterol Neb [AccuNeb] 0.63 mg IH Q6H PRN 10/18/17 [History] Gabapentin [Neurontin] 100 mg PO TID #60 capsule 10/21/17 [Rx] Insulin Glargine,Hum.rec.anlog [Lantus Solostar] 45 unit SQ BID #0 10/21/17 [Rx] Rosuvastatin [Crestor] 10 mg PO HS #15 tablet 10/21/17 [Rx] Docusate Sodium [Colace] 100 mg PO BID #60 capsule 10/26/17 [Rx] amLODIPine [Norvasc] 5 mg PO DAILY 10/26/17 [History] metOLazone [Zaroxolyn] 1 tab PO DAILY 10/26/17 [History] Collagenase Oint [Santyl] 1 appl TP AD 11/11/17 [History] Oxybutynin [Ditropan] 5 mg PO TID 11/11/17 [History] 3 Allergy/AdvReac Type Severity Reaction Status Date / Time No Known Allergies Allergy Verified 11/11/17 11:44 Exam - Vital Signs Vital signs: Initial Vital Signs Temp Pulse Resp BP Pulse Ox 99.2 F 100 18 136/61 99 11/11/17 11:38 11/11/17 11:38 11/11/17 11:38 11/11/17 11:38 11/11/17 11:38 Vital Signs - Last 8 Hours Temp Pulse Resp BP Pulse Ox 11/12/17 10:04 98.5 F 85 18 134/69 99 11/12/17 07:42 20 97 Intake and Output 11/11/17 11/12/17 11/12/17 23:59 07:59 15:59 Intake Total 480 / 480 480 / 480 Balance 480 / 480 480 / 480 Intake: Oral 480 / 480 480 / 480 Other: Meal turkey sandwich Breakfast Percent of Meal Consumed 100% 75% Weight 107.9 kg Blood Glucose* 195 383 105 Patient Weight 11/12/17 23:59 Weight 107.9 kg - General Appearance General appearance: well-developed, well-nourished EENT: ATNC Neck: supple Respiratory: clear Cardiology: no edema, regular rate Integumentary: warm and dry Neurologic: alert and oriented x3 Psychiatric: mood/affect appropriate Results - Lab Results 11/12/17 07:26 11/12/17 07:26 Most recent lab results Calcium 8.8 mg/dL (8.6-10.3) 11/12/17 07:26 Phosphorus 5.8 mg/dL (2.7-4.5) H 11/12/17 07:26 Magnesium 2.3 mg/dL (1.6-2.6) 11/12/17 07:26 Consult Discharge Plan - Plan Referrals: Tristen Quintana MD [Primary Care Provider] -
--- NOTE | 2017-11-12 15:32 | Internal Med Progress Note ---
Date of Encounter: 11/12/17 Time of Encounter: 13:42 - Subjective Interval history: Patient seen and examined at bedside. Resting in chair and reports of feeling better compared to previous day. Reports of improvement in her respiratory status. Denies any chest pain at this time Serial TNI are negative Assessment/Plan: 1. COPD exacerbation continue systemic steroids bronchodilator support monitor O2 saturation, goal O2 sat: 88-92% 2. Chest pain Resolved at this time serial TNI negative will repeat 2D echo 3. ESRD On HD Nephrology on board and consultation appreciated continue HD on MWF 4. Hyponatremia Chronic clinically asymptomatic will continue to closely monitor 5. DM sliding scale insulin algorithm monitor FS and BG ADA diet 6. CHF Not in acute exacerbation continue home meds f/u 2D echo 7. HTN BP within acceptable range continue home meds 8. Sacral Decubitus chronic continue wound care frequent turning 9. DVT ppx heparin SQ - Constitutional Vitals: Temp Pulse Resp BP Pulse Ox 98.5 F 85 18 134/69 99 11/12/17 10:04 11/12/17 10:04 11/12/17 10:04 11/12/17 10:04 11/12/17 10:04 General appearance: Present: cooperative, A&O X 3, pleasant, no acute distress, obese, answers questions appropriately - Head Head exam: Present: atraumatic, normocephalic - Eye Eye exam: Present: conjuntiva pink, sclera anicteric - Respiratory Respiratory exam: Absent: rales, respiratory distress, wheezes (equal air entry bilaterally ) - Cardiovascular Cardiovascular exam: Present: RRR, +S1, +S2. Absent: diastolic murmur, gallop, rubs, systolic murmur - GI/Abdominal GI/Abdominal exam: Present: normal bowel sounds, soft, no peritoneal signs. Absent: distended, tenderness - Extremities Exam Extremities exam: Present: warm, radial pulses palpable and symmetrical. Absent : calf tenderness - Neurological Exam Neurological exam: Present: alert, oriented X3 - Psychiatric Psychiatric exam: Present: normal affect, normal mood Internal Medicine: Result - Labs CBC & Chem 7: 11/12/17 07:26 11/12/17 07:26 Labs: Short CBC 11/12/17 Range/Units 07:26 WBC 6.3 (4.3-11.1) K/mcL Hgb 10.2 L D (11.5-15.4) g/dL Hct 32.7 L (35.3-44.9) % Plt Count 153 (140-400) K/mcL Neutrophils # 4.8 (1.6-8.9) K/mcL BMP 11/12/17 07:26 Sodium 128 L Potassium 4.0 Chloride 94 L Carbon Dioxide 26 BUN 49 H Creatinine 3.29 H Glucose 267 H Calcium 8.8 Cardiac Enzymes 11/11/17 11/11/17 Range/Units 16:22 22:06 Troponin I < 0.03 < 0.03 (< 0.04) ng/mL Liver Function 11/12/17 Range/Units 07:26 Total Bilirubin 0.3 (0.3-1.0) mg/dL AST 20 (13-39) Units/L ALT 16 (7-52) Units/L Alkaline Phosphatase 170 H (34-104) Units/L Albumin 3.0 L (3.5-5.7) g/dL - ABG Interpretation ABG results: PT/INR, D-dimer PT 10.6 Seconds (9.4-12.1) 11/11/17 11:59 D-Dimer 855 ng/mLFEU (0-500) H 11/11/17 16:22 Consult Discharge Plan - Plan Referrals: Tristen Quintana MD [Primary Care Provider] -
[2017-11-12] MEDS: Azithromycin 250 MG TABLET PO SCH (17:58)
[2017-11-12 18:27] LABS: Bilirubin,Urine Small (Negative); Blood,Urine Large (Negative); Clarity,Urine Turbid (Clear); Color,Urine Yellow (Yellow); Glucose,Urine (UA) Normal (Normal); Ketones,Urine Negative (Negative); Leukocyte Esterase,Urine Large (Negative); Nitrite,Urine Negative (Negative); PH,Urine 5.5 pH Units (5.0-8.0); Protein,Urine 100 mg/dL (Neg-Trace); Specific Gravity,Urine 1.022 (1.010-1.025); Urobilinogen,Urine Normal (Normal)
[2017-11-12 18:29] LABS: Bacteria,Urine Many per hpf (None-Few); Squamous Epithelial Cell,Urine Many per lpf (None-Few); WBC,Urine TNTC per hpf (0-3)
[2017-11-12 18:41] LABS: RBC,Urine Present per hpf (0-3); Yeast,Urine Present per hpf (None Seen)
[2017-11-12] MEDS: *HR* OxyCODONE/APAP 10/325 TABLET PO PRN (20:42)
[2017-11-13 02:15] LABS: Adenovirus Not Detected (Not Detect); Bordetella Pertussis Not Detected (Not Detect); Chlamydophila pneumoniae Not Detected (Not Detect); Coronavirus 229E Not Detected (Not Detect); Coronavirus HKU1 Not Detected (Not Detect); Coronavirus NL63 Not Detected (Not Detect); Coronavirus OC43 Not Detected (Not Detect); Human Metapneumovirus Not Detected (Not Detect); Human Rhinovirus/Enterovirus Not Detected (Not Detect); Influenza A Subtype 2009 H1 Not Detected (Not Detect); Influenza A Untypeable Not Detected (Not Detect); Influenza B Not Detected (Not Detect); Mycoplasma pneumoniae Not Detected (Not Detect); Parainfluenza Virus 1 Not Detected (Not Detect); Parainfluenza Virus 2 Not Detected (Not Detect); Parainfluenza Virus 3 Not Detected (Not Detect); Parainfluenza Virus 4 Not Detected (Not Detect); Respiratory Syncytial Virus Not Detected (Not Detect)
[2017-11-13] MEDS: *HR* OxyCODONE/APAP 10/325 TABLET PO PRN (02:19)
[2017-11-13] MEDS: GuaiFENesin Liq 200 MG/10 ML UDC PO PRN ×2 (02:19→21:24)
[2017-11-13] MEDS: Ipratropium/Albuterol Neb 3 ML IH SCH ×4 (03:32→22:26)
[2017-11-13] MEDS: *HR* OxyCODONE ER (12 HR) 20 MG TABLET PO SCH ×2 (05:09→17:36)
[2017-11-13] MEDS: *HR* Heparin 5,000 UNIT/ML VIAL SQ SCH ×3 (05:09→20:50)
[2017-11-13 06:48] LABS: Basophils % 0.6 %; Eosinophils % 0.4 %; Hematocrit 31.4 % (35.3-44.9); Immature Granulocytes % 0.6 % (0-4); Lymphocytes # 0.9 K/mcL (0.6-4.6); Mean Corpuscular HGB Conc 31.8 g/dL (31.6-35.5); Mean Corpuscular Hemoglobin 27.2 pg (28.0-33.3); Mean Corpuscular Volume 85.6 fL (83.0-100.0); Mean Platelet Volume 10.6 fL (9.4-12.4); Monocytes # 0.7 K/mcL (0.0-1.3); Monocytes % 13.1 %; Neutrophils # 3.5 K/mcL (1.6-8.9); Platelet Count 138 K/mcL (140-400); Red Blood Count 3.67 M/mcL (3.82-4.97); Red Cell Distribution Width 19.3 % (11.5-14.5); Segmented Neutrophils % 68.3 %
[2017-11-13 07:10] LABS: Albumin 3.1 g/dL (3.5-5.7); Bilirubin,Total 0.3 mg/dL (0.3-1.0); Calcium 8.6 mg/dL (8.6-10.3); Globulin 3.1 g/dL (2.4-3.5); Magnesium 2.3 mg/dL (1.6-2.6); Phosphorous 6.2 mg/dL (2.7-4.5); Potassium 4.2 mEq/L (3.5-5.1); Total Protein 6.2 g/dL (6.4-8.9)
[2017-11-13] MEDS: Insulin LISPRO 300 UNITS/3 ML VIAL SQ SCH ×7 (08:13→20:50)
[2017-11-13] MEDS: predniSONE 20 MG TABLET PO SCH (08:15)
[2017-11-13] MEDS: Aspirin Enteric Coated 81 MG Tablet PO SCH (08:15)
[2017-11-13] MEDS: metOLazone 2.5 MG TABLET PO SCH (08:15)
[2017-11-13] MEDS: Calcium Acetate 667 MG CAPSULE PO SCH ×3 (08:15→17:36)
[2017-11-13] MEDS: GuaiFENesin/Dextromethorphan TABLET PO SCH ×2 (08:15→20:49)
[2017-11-13] MEDS: Sennosides 8.6 MG TABLET PO SCH ×2 (08:15→20:49)
[2017-11-13] MEDS: Cholecalciferol (D-3) 1,000 UNIT TABLET PO SCH (08:16)
[2017-11-13] MEDS: amLODIPine 5 MG TABLET PO SCH (08:16)
[2017-11-13] MEDS: Renal Vitamin 1 MG CAPSULE PO SCH (08:16)
[2017-11-13] MEDS: ARIPiprazole 10 MG TABLET PO SCH (08:16)
[2017-11-13] MEDS: Gabapentin 100 MG CAPSULE PO SCH ×3 (08:16→20:50)
[2017-11-13] MEDS: Insulin DETEMIR 100 UNIT/ML X5UNITS SQ SCH ×2 (08:36→20:50)
[2017-11-13] MEDS ORDERED: 0.9 % Sodium Chloride 1,000 ML ONE (09:54)
[2017-11-13] MEDS ORDERED: 0.9 % Sodium Chloride 250 ML IVC PRN (10:25)
--- NOTE | 2017-11-13 10:27 | Nephrology Progress Note ---
Date of Encounter: 11/13/17 Time of Encounter: 10:26 - Assessment and Plan (1) ESRD (end stage renal disease) on dialysis Current Visit: Yes Status: Chronic HD MWF Plan for UF today for volume overload. Adjust medications for renal function. Renal diet. (2) Chest pain Current Visit: Yes Status: Acute Per primary team. Echo without WMA. Qualifiers: Chest pain type: other chest pain Qualified Code(s): R07.89 - Other chest pain; R07.8 - Other chest pain (3) Diabetes Current Visit: Yes Status: Chronic Per primary team. 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 Extra fluid removal today. Subjective Principal diagnosis: ESRD Interval history: Patient seen. She complains of feeling swollen. She is requesting fluid removal She states her chest pain is better. Objective - Vital Signs Vital signs: Vital Signs Temp Pulse Resp BP Pulse Ox 11/13/17 10:16 98.4 F 79 17 115/67 99 11/13/17 08:26 97 11/13/17 06:25 97.8 F 71 16 113/65 97 11/13/17 04:36 97.7 F 74 16 121/69 100 11/13/17 03:32 19 98 11/13/17 00:17 98.0 F 80 18 122/57 97 11/12/17 22:50 16 96 11/12/17 18:51 97.8 F 90 16 134/66 99 11/12/17 18:00 97.7 F 20 133/66 11/12/17 17:45 128/69 11/12/17 17:30 134/70 11/12/17 17:15 131/72 11/12/17 17:00 135/69 11/12/17 16:45 146/68 11/12/17 16:30 120/64 11/12/17 16:15 121/63 11/12/17 16:00 123/60 11/12/17 15:45 132/61 11/12/17 15:30 128/63 11/12/17 15:15 132/64 11/12/17 15:00 142/66 11/12/17 14:45 131/65 11/12/17 14:30 142/68 11/12/17 14:15 97.2 F L 18 144/64 Intake and Output 11/12/17 11/13/17 11/13/17 23:59 07:59 15:59 Intake Total 240 / 240 250 / 250 120 / 120 Output Total 5250 / 5250 Balance -5010 / -5010 250 / 250 120 / 120 Intake: Oral 240 / 240 250 / 250 120 / 120 Output: Urine 250 / 250 Total Dialysis (HD) Output 4600 / 4600 Catheter 400 / 400 Other: Meal ICE CREAM MILK,CRACKERS,PEANUT BUTTER Breakfast Percent of Meal Consumed 100% Weight 107.547 kg Blood Glucose* 242 204 Hemodialysis Net Fluid Removed 4000 (mL) Patient Weight 11/13/17 23:59 Weight 107.547 kg - General Appearance General appearance: Present: well-developed, well-nourished, obese EENT: Present: ATNC Neck: Present: supple Respiratory: Present: clear Cardiology: Present: edema, regular rate Gastrointestinal: Present: obese Integumentary: Present: warm and dry Neurologic: Present: alert and oriented x3 Psychiatric: Present: mood/affect appropriate - Lab 11/13/17 06:06 11/13/17 06:06 Most recent lab results Calcium 8.6 mg/dL (8.6-10.3) 11/13/17 06:06 Phosphorus 6.2 mg/dL (2.7-4.5) H 11/13/17 06:06 Magnesium 2.3 mg/dL (1.6-2.6) 11/13/17 06:06 Consult Discharge Plan - Plan Referrals: Tristen Quintana MD [Primary Care Provider] -
[2017-11-13] MEDS ORDERED: 0.9 % Sodium Chloride 1,000 ML PRIME SCH (10:30)
[2017-11-13] MEDS: Budesonide/Formoterol 160/4.5 MDI IH SCH ×2 (10:36→22:26)
[2017-11-13] MEDS ORDERED: Insulin LISPRO 300 UNITS/3 ML VIAL SQ ONE (11:51)
--- NOTE | 2017-11-13 11:55 | Internal Med Progress Note ---
Date of Encounter: 11/13/17 Time of Encounter: 11:26 - Subjective Interval history: Patient seen and examined at bedside. Resting in chair and reports of feeling better compared to previous day. Reports of improvement in her respiratory status. Reports of chest pain with deep inspiration and is reproducible to touch. Respiratory panel positive for influenza. Serial TNI are negative Assessment/Plan: 1. COPD exacerbation/Influenza continue systemic steroids bronchodilator support monitor O2 saturation, goal O2 sat: 88-92% started Tamiflu 2. Chest pain unlikely of cardiac etiology given negative serial TNI and unchanged 2D echo findings continue management for underlying COPD exac 3. ESRD On HD Nephrology on board and consultation appreciated continue HD on MWF 4. Hyponatremia Chronic clinically asymptomatic will continue to closely monitor 5. DM sliding scale insulin algorithm monitor FS and BG ADA diet 6. CHF Not in acute exacerbation continue home meds 2D echo noted 7. HTN BP within acceptable range continue home meds 8. Sacral Decubitus chronic continue wound care frequent turning 9. DVT ppx heparin SQ - Constitutional Vitals: Temp Pulse Resp BP Pulse Ox 98.4 F 79 17 115/67 99 11/13/17 10:16 11/13/17 10:16 11/13/17 10:16 11/13/17 10:16 11/13/17 10:16 General appearance: Present: cooperative, A&O X 3, pleasant, no acute distress, obese, answers questions appropriately - Head Head exam: Present: atraumatic, normocephalic - Eye Eye exam: Present: conjuntiva pink, sclera anicteric - Respiratory Respiratory exam: Absent: rales, respiratory distress, wheezes - Cardiovascular Cardiovascular exam: Present: RRR, +S1, +S2. Absent: diastolic murmur, gallop, rubs, systolic murmur - GI/Abdominal GI/Abdominal exam: Present: normal bowel sounds, soft, no peritoneal signs. Absent: distended, tenderness - Extremities Exam Extremities exam: Present: warm, radial pulses palpable and symmetrical. Absent : calf tenderness - Neurological Exam Neurological exam: Present: alert, oriented X3 - Psychiatric Psychiatric exam: Present: normal affect, normal mood Internal Medicine: Result - Labs CBC & Chem 7: 11/13/17 06:06 11/13/17 06:06 Labs: Short CBC 11/13/17 Range/Units 06:06 WBC 5.1 (4.3-11.1) K/mcL Hgb 10.0 L (11.5-15.4) g/dL Hct 31.4 L (35.3-44.9) % Plt Count 138 L (140-400) K/mcL Neutrophils # 3.5 (1.6-8.9) K/mcL BMP 11/13/17 06:06 Sodium 133 L Potassium 4.2 Chloride 97 L Carbon Dioxide 29 BUN 41 H Creatinine 2.68 H Glucose 148 H Calcium 8.6 Liver Function 11/13/17 Range/Units 06:06 Total Bilirubin 0.3 (0.3-1.0) mg/dL AST 30 (13-39) Units/L ALT 20 (7-52) Units/L Alkaline Phosphatase 159 H (34-104) Units/L Albumin 3.1 L (3.5-5.7) g/dL Urine 11/12/17 Range/Units 18:21 Urine Color Yellow (Yellow) Urine Clarity Turbid A (Clear) Urine pH 5.5 (5.0-8.0) pH Units Ur Specific [place] 1.022 (1.010-1.025) Urine Protein 100 H (Neg-Trace) mg/dL Urine Glucose (UA) Normal (Normal) mg/dL - ABG Interpretation ABG results: PT/INR, D-dimer PT 10.6 Seconds (9.4-12.1) 11/11/17 11:59 D-Dimer 855 ng/mLFEU (0-500) H 11/11/17 16:22 - Impressions Impressions Echocardiogram 11/12/17 15:37 Impressions: LVEF 60%. Mild left ventricular diastolic dysfunction. Normal right ventricular structure and function. Mild aortic regurgitation. Mild mitral regurgitation. Mild tricuspid regurgitation. Mild pulmonary hypertension. Left Ventricular Wall Motion: Rest Echo Findings All wall segments showed normal motion. Findings: Study Quality * Technically adequate exam. ECG Findings * Normal sinus rhythm. Left Ventricle * LVEF 60%. * Normal LV chamber size, wall thickness and function. * Mild left ventricular diastolic dysfunction. Right Ventricle * Normal right ventricular structure and function. Left Atrium * Moderately dilated left atrium. Right Atrium * Normal right atrial size. Aortic Valve * Aortic valve not well visualized. * Mild aortic regurgitation. * No aortic stenosis. Mitral Valve * Normal mitral valve structure. * No mitral stenosis. * Mild mitral regurgitation. Tricuspid Valve * Tricuspid valve not well visualized. * Mild tricuspid regurgitation. * Estimated RA pressure is 3 mmHg. * Estimated RVSP is 42 mmHg. * Mild pulmonary hypertension. Pulmonic Valve * No pulmonic regurgitation. * No pulmonic stenosis. * Pulmonic valve is not well visualized. Pulmonary Artery * Pulmonary artery not well visualized. Aorta * Not well visualized. Pericardium * There is no pericardial effusion present. Interatrial Septum * No evidence of PFO by color Doppler. IVC * Normal IVC dimensions and inspiratory collapse. Consult Discharge Plan - Plan Referrals: Tristen Quintana MD [Primary Care Provider] -
[2017-11-13] MEDS: Azithromycin 250 MG TABLET PO SCH (17:36)
[2017-11-13] MEDS: *HR* Promethazine 25 MG/ML VIAL IVP PRN (21:21)
[2017-11-14] MEDS: *HR* OxyCODONE/APAP 10/325 TABLET PO PRN ×2 (03:32→20:50)
[2017-11-14] MEDS: Ipratropium/Albuterol Neb 3 ML IH SCH ×4 (03:50→22:35)
[2017-11-14] MEDS: *HR* OxyCODONE ER (12 HR) 20 MG TABLET PO SCH ×2 (06:22→18:46)
[2017-11-14] MEDS: *HR* Heparin 5,000 UNIT/ML VIAL SQ SCH ×3 (06:22→20:50)
[2017-11-14 07:40] LABS: Albumin 3.2 g/dL (3.5-5.7); Bilirubin,Total 0.3 mg/dL (0.3-1.0); Calcium 8.4 mg/dL (8.6-10.3); Globulin 3.2 g/dL (2.4-3.5); Magnesium 2.2 mg/dL (1.6-2.6); Phosphorous 6.1 mg/dL (2.7-4.5); Potassium 4.4 mEq/L (3.5-5.1); Total Protein 6.4 g/dL (6.4-8.9)
[2017-11-14 07:50] LABS: Basophils % 0.5 %; Eosinophils % 0.4 %; Hematocrit 31.7 % (35.3-44.9); Hemoglobin 10.1 g/dL (11.5-15.4); Immature Granulocytes % 1.3 % (0-4); Lymphocytes % 17.5 %; Mean Corpuscular HGB Conc 31.9 g/dL (31.6-35.5); Mean Corpuscular Hemoglobin 26.9 pg (28.0-33.3); Mean Corpuscular Volume 84.5 fL (83.0-100.0); Mean Platelet Volume 11.2 fL (9.4-12.4); Monocytes # 0.7 K/mcL (0.0-1.3); Neutrophils # 3.8 K/mcL (1.6-8.9); Platelet Count 150 K/mcL (140-400); Red Blood Count 3.75 M/mcL (3.82-4.97); Red Cell Distribution Width 19.1 % (11.5-14.5); Segmented Neutrophils % 68.3 %
[2017-11-14] MEDS ORDERED: Nitrofurantoin (BID) 100 MG CAPSULE PO SCH (08:23)
[2017-11-14] MEDS: Insulin LISPRO 300 UNITS/3 ML VIAL SQ SCH ×7 (08:32→20:51)
[2017-11-14] MEDS: Insulin DETEMIR 100 UNIT/ML X5UNITS SQ SCH ×2 (08:33→20:51)
[2017-11-14] MEDS: Sennosides 8.6 MG TABLET PO SCH ×2 (08:35→20:51)
[2017-11-14] MEDS: Gabapentin 100 MG CAPSULE PO SCH ×3 (08:36→20:50)
[2017-11-14] MEDS: ARIPiprazole 10 MG TABLET PO SCH (08:36)
[2017-11-14] MEDS: Aspirin Enteric Coated 81 MG Tablet PO SCH (08:36)
[2017-11-14] MEDS: Cholecalciferol (D-3) 1,000 UNIT TABLET PO SCH (08:36)
[2017-11-14] MEDS: Calcium Acetate 667 MG CAPSULE PO SCH ×3 (08:36→18:46)
[2017-11-14] MEDS: predniSONE 20 MG TABLET PO SCH (08:36)
[2017-11-14] MEDS: amLODIPine 5 MG TABLET PO SCH (08:36)
[2017-11-14] MEDS: GuaiFENesin/Dextromethorphan TABLET PO SCH ×2 (08:36→20:51)
[2017-11-14] MEDS: Oseltamivir Phosphate 30 MG CAPSULE PO SCH (08:37)
[2017-11-14] MEDS: Renal Vitamin 1 MG CAPSULE PO SCH (08:37)
[2017-11-14] MEDS: metOLazone 2.5 MG TABLET PO SCH (08:37)
[2017-11-14] MEDS: Budesonide/Formoterol 160/4.5 MDI IH SCH ×2 (10:05→22:35)
--- NOTE | 2017-11-14 10:56 | Nephrology Progress Note ---
Date of Encounter: 11/14/17 Time of Encounter: 10:55 - Assessment and Plan (1) ESRD (end stage renal disease) on dialysis Current Visit: Yes Status: Chronic HD MWF Adjust medications for renal function. Renal diet. (2) Chest pain Current Visit: Yes Status: Acute Per primary team. Echo without WMA. Qualifiers: Chest pain type: other chest pain Qualified Code(s): R07.89 - Other chest pain; R07.8 - Other chest pain (3) Diabetes Current Visit: Yes Status: Chronic Per primary team. 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 Subjective Principal diagnosis: ESRD Interval history: Patient seen. She feels better after UF session on Wednesday. No complaint of chest pain. Objective - Vital Signs Vital signs: Vital Signs Temp Pulse Resp BP Pulse Ox 11/14/17 07:40 98.0 F 76 18 123/70 95 11/14/17 03:53 97.4 F L 72 18 128/64 100 11/14/17 03:51 17 96 11/13/17 22:27 16 93 11/13/17 21:15 98.2 F 77 16 129/70 97 11/13/17 17:33 98.4 F 84 18 129/73 96 11/13/17 15:56 16 97 11/13/17 14:20 99.1 F 22 130/60 11/13/17 14:05 132/60 11/13/17 13:50 124/62 11/13/17 13:35 132/66 11/13/17 13:20 130/61 11/13/17 13:05 137/69 11/13/17 12:50 135/68 11/13/17 12:35 126/70 11/13/17 12:20 100.0 F H 20 144/77 Intake and Output 11/13/17 11/14/17 11/14/17 23:59 07:59 15:59 Intake Total 240 / 240 Balance 240 / 240 Intake: Oral 240 / 240 Other: Weight 107.501 kg Blood Glucose* 171 189 Patient Weight 11/14/17 23:59 Weight 107.501 kg - General Appearance General appearance: Present: obese EENT: Present: ATNC Cardiology: Present: regular rate Integumentary: Present: warm and dry Neurologic: Present: alert and oriented x3 Psychiatric: Present: mood/affect appropriate - Lab 11/14/17 06:39 11/14/17 06:39 Most recent lab results Calcium 8.4 mg/dL (8.6-10.3) L 11/14/17 06:39 Phosphorus 6.1 mg/dL (2.7-4.5) H 11/14/17 06:39 Magnesium 2.2 mg/dL (1.6-2.6) 11/14/17 06:39 Consult Discharge Plan - Plan Referrals: Tristen Quintana MD [Primary Care Provider] -
[2017-11-14] MEDS ORDERED: Insulin LISPRO 300 UNITS/3 ML VIAL SQ ONE (12:17)
--- NOTE | 2017-11-14 14:24 | Internal Med Progress Note ---
Date of Encounter: 11/14/17 Time of Encounter: 13:30 - Subjective Interval history: Patient seen and examined at bedside. Resting in chair and reports of feeling better compared to previous day. Reports of improvement in her respiratory status. Denies any chest pain. Reports of having dysuria, UA positive and urine culture positive for gram negative linda. Pt has history of ESBL positive UTI on 10/18/17. Serial TNI are negative Assessment/Plan: 1. COPD exacerbation/Influenza continue systemic steroids bronchodilator support monitor O2 saturation, goal O2 sat: 88-92% continue Tamiflu 2. Chest pain unlikely of cardiac etiology given negative serial TNI and unchanged 2D echo findings continue management for underlying COPD exac 3. ESRD On HD Nephrology on board and consultation appreciated continue HD on MWF 4. Hyponatremia Chronic clinically asymptomatic will continue to closely monitor 5. DM sliding scale insulin algorithm monitor FS and BG ADA diet 6. CHF Not in acute exacerbation continue home meds 2D echo noted 7. HTN BP within acceptable range continue home meds 8. Sacral Decubitus chronic continue wound care frequent turning 9. DVT ppx heparin SQ 10. UTI Urine culture positive for gram negative rods, prior history of ESBL UTI on will start patient on Ertapenem and de-escalate abx as per urine culture results - Constitutional Vitals: Temp Pulse Resp BP Pulse Ox 98.5 F 75 16 147/74 97 11/14/17 11:31 11/14/17 11:31 11/14/17 11:31 11/14/17 11:31 11/14/17 11:31 General appearance: Present: cooperative, A&O X 3, pleasant, no acute distress, obese, answers questions appropriately - Head Head exam: Present: atraumatic, normocephalic - Eye Eye exam: Present: conjuntiva pink, sclera anicteric - Respiratory Respiratory exam: Present: CTAB. Absent: respiratory distress, wheezes - Cardiovascular Cardiovascular exam: Present: RRR, +S1, +S2. Absent: diastolic murmur, gallop, rubs, systolic murmur - GI/Abdominal GI/Abdominal exam: Present: normal bowel sounds, soft, no peritoneal signs. Absent: distended, tenderness - Extremities Exam Extremities exam: Present: warm, radial pulses palpable and symmetrical. Absent : calf tenderness, cyanotic - Neurological Exam Neurological exam: Present: alert, oriented X3 - Psychiatric Psychiatric exam: Present: normal affect, normal mood Internal Medicine: Result - Labs CBC & Chem 7: 11/14/17 06:39 11/14/17 06:39 Labs: Short CBC 11/14/17 Range/Units 06:39 WBC 5.5 (4.3-11.1) K/mcL Hgb 10.1 L (11.5-15.4) g/dL Hct 31.7 L (35.3-44.9) % Plt Count 150 (140-400) K/mcL Neutrophils # 3.8 (1.6-8.9) K/mcL BMP 11/14/17 06:39 Sodium 129 L Potassium 4.4 Chloride 92 L Carbon Dioxide 25 BUN 56 H Creatinine 3.03 H Glucose 185 H Calcium 8.4 L Liver Function 11/14/17 Range/Units 06:39 Total Bilirubin 0.3 (0.3-1.0) mg/dL AST 26 (13-39) Units/L ALT 23 (7-52) Units/L Alkaline Phosphatase 161 H (34-104) Units/L Albumin 3.2 L (3.5-5.7) g/dL - ABG Interpretation ABG results: PT/INR, D-dimer PT 10.6 Seconds (9.4-12.1) 11/11/17 11:59 D-Dimer 855 ng/mLFEU (0-500) H 11/11/17 16:22 Consult Discharge Plan - Plan Referrals: Tristen Quintana MD [Primary Care Provider] -
[2017-11-14] MEDS: GuaiFENesin Liq 200 MG/10 ML UDC PO PRN (18:46)
[2017-11-14] MEDS: *HR* Promethazine 25 MG/ML VIAL IVP PRN (20:50)
[2017-11-15] MEDS: Ipratropium/Albuterol Neb 3 ML IH SCH ×4 (03:47→21:26)
[2017-11-15 04:28] LABS: Basophils % 0.5 %; Hematocrit 32.4 % (35.3-44.9); Hemoglobin 10.3 g/dL (11.5-15.4); Immature Granulocytes % 0.5 % (0-4); Lymphocytes # 1.1 K/mcL (0.6-4.6); Lymphocytes % 16.9 %; Mean Corpuscular HGB Conc 31.8 g/dL (31.6-35.5); Mean Corpuscular Hemoglobin 26.3 pg (28.0-33.3); Mean Corpuscular Volume 82.9 fL (83.0-100.0); Mean Platelet Volume 10.7 fL (9.4-12.4); Monocytes # 0.7 K/mcL (0.0-1.3); Monocytes % 10.2 %; Neutrophils # 4.6 K/mcL (1.6-8.9); Platelet Count 151 K/mcL (140-400); Red Blood Count 3.91 M/mcL (3.82-4.97); Red Cell Distribution Width 18.6 % (11.5-14.5); Segmented Neutrophils % 71.9 %
[2017-11-15 05:00] LABS: Calcium 8.4 mg/dL (8.6-10.3); Magnesium 2.3 mg/dL (1.6-2.6); Phosphorous 6.1 mg/dL (2.7-4.5); Potassium 4.9 mEq/L (3.5-5.1)
[2017-11-15] MEDS: *HR* Heparin 5,000 UNIT/ML VIAL SQ SCH ×3 (05:58→22:00)
[2017-11-15] MEDS: *HR* OxyCODONE ER (12 HR) 20 MG TABLET PO SCH ×2 (05:58→18:30)
[2017-11-15] MEDS ORDERED: 0.9 % Sodium Chloride 250 ML IVC PRN (07:29)
[2017-11-15] MEDS: Gabapentin 100 MG CAPSULE PO SCH ×3 (08:53→21:58)
[2017-11-15] MEDS: Aspirin Enteric Coated 81 MG Tablet PO SCH (08:53)
[2017-11-15] MEDS: GuaiFENesin/Dextromethorphan TABLET PO SCH ×2 (08:53→21:59)
[2017-11-15] MEDS: Sennosides 8.6 MG TABLET PO SCH ×2 (08:53→21:58)
[2017-11-15] MEDS: Calcium Acetate 667 MG CAPSULE PO SCH ×3 (08:53→18:48)
[2017-11-15] MEDS: predniSONE 20 MG TABLET PO SCH (08:53)
[2017-11-15] MEDS: ARIPiprazole 10 MG TABLET PO SCH (08:53)
[2017-11-15] MEDS: metOLazone 2.5 MG TABLET PO SCH (08:53)
[2017-11-15] MEDS: amLODIPine 5 MG TABLET PO SCH (08:54)
[2017-11-15] MEDS: Renal Vitamin 1 MG CAPSULE PO SCH (08:54)
[2017-11-15] MEDS: Cholecalciferol (D-3) 1,000 UNIT TABLET PO SCH (08:54)
[2017-11-15] MEDS: Oseltamivir Phosphate 30 MG CAPSULE PO SCH (08:54)
[2017-11-15] MEDS: Insulin LISPRO 300 UNITS/3 ML VIAL SQ SCH ×7 (08:54→21:51)
[2017-11-15] MEDS: Insulin DETEMIR 100 UNIT/ML X5UNITS SQ SCH ×2 (09:06→21:59)
[2017-11-15] MEDS: Budesonide/Formoterol 160/4.5 MDI IH SCH ×2 (10:42→21:26)
--- NOTE | 2017-11-15 11:02 | Nephrology Progress Note ---
Date of Encounter: 11/15/17 Time of Encounter: 10:59 - Assessment and Plan (1) ESRD (end stage renal disease) on dialysis Current Visit: Yes Status: Chronic HD MWF Adjust medications for renal function. Renal diet. Patient seen on dialysis today. (2) Chest pain Current Visit: Yes Status: Acute Per primary team. Echo without WMA. Qualifiers: Chest pain type: other chest pain Qualified Code(s): R07.89 - Other chest pain; R07.8 - Other chest pain (3) Diabetes Current Visit: Yes Status: Chronic Per primary team. Qualifiers: Diabetes mellitus type: type 2 Diabetes mellitus complication status: with kidney complications Diabetes mellitus complication detail: with chronic kidney disease Diabetes mellitus usp insulin use: with intermodal dispatcher use Chronic kidney disease stage: on chronic dialysis Qualified Code(s): E11.22 - Type 2 diabetes mellitus with diabetic chronic kidney disease; N18.6 - End stage renal disease; N18.6 - End stage renal disease; N18.6 - End stage renal disease; N18.6 - End stage renal disease; Z79.4 - intermediate (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 of insulin; Z79.4 - intermediate (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 of insulin; Z79.4 - intermediate (current ) use of insulin; Z79.4 - intermediate (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 of insulin; Z99.2 - Dependence on renal dialysis; Z99.2 - Dependence on renal dialysis; Z99.2 - Dependence on renal dialysis; Z99.2 - Dependence on renal dialysis (4) Diastolic dysfunction with chronic heart failure Current Visit: No Status: Chronic Blood pressure control. Subjective Principal diagnosis: ESRD Interval history: Patient seen on dialysis. No complaint of chest pain. Objective - Vital Signs Vital signs: Vital Signs Temp Pulse Resp BP Pulse Ox 11/15/17 10:55 141/67 11/15/17 10:40 162/75 11/15/17 10:25 151/71 11/15/17 10:10 157/71 11/15/17 09:55 138/66 11/15/17 09:40 167/72 11/15/17 09:25 97.3 F L 18 151/78 11/15/17 07:40 98.2 F 77 16 174/72 96 11/15/17 04:05 98.2 F 72 18 129/74 95 11/15/17 03:48 16 95 11/15/17 00:27 98.6 F 75 16 134/72 93 11/14/17 23:36 18 93 11/14/17 19:58 98.6 F 74 16 147/63 95 11/14/17 16:19 98.6 F 78 16 159/62 99 11/14/17 16:13 16 95 11/14/17 11:31 98.5 F 75 16 147/74 97 Intake and Output 11/14/17 11/15/17 11/15/17 23:59 07:59 15:59 Intake Total 720 / 720 600 / 600 Output Total 200 / 200 Balance 520 / 520 600 / 600 Intake: Oral 720 / 720 0 / 0 Intake, Rinseback and Flushes 600 / 600 Output: Catheter 200 / 200 Other: Meal Dinner Percent of Meal Consumed 100% Weight 111.493 kg 111.493 kg Blood Glucose* 166 259 121 Hemodialysis Net Fluid Removed 1960 (mL) Patient Weight 11/15/17 23:59 Weight 111.493 kg - General Appearance General appearance: Present: well-developed, well-nourished EENT: Present: ATNC Neck: Present: supple Respiratory: Present: course breath sounds, rhonchi Cardiology: Present: edema, regular rate Dialysis Vascular Access: Arteriovenous Fistula Gastrointestinal: Present: obese Integumentary: Present: warm and dry Neurologic: Present: alert and oriented x3 Psychiatric: Present: mood/affect appropriate - Lab 11/15/17 03:40 11/15/17 03:40 Most recent lab results Calcium 8.4 mg/dL (8.6-10.3) L 11/15/17 03:40 Phosphorus 6.1 mg/dL (2.7-4.5) H 11/15/17 03:40 Magnesium 2.3 mg/dL (1.6-2.6) 11/15/17 03:40 Consult Discharge Plan - Plan Referrals: Tristen Quintana MD [Primary Care Provider] -
--- NOTE | 2017-11-15 12:25 | Internal Med Progress Note ---
Date of Encounter: 11/15/17 Time of Encounter: 14:12 - Subjective Interval history: Patient seen and examined in hemodialysis. Resting comfortably in bed. PT evaluation recommended ECF placement, however pt adamantly refuses. Tentative d/ c in am with home health services. Assessment/Plan: 1. COPD exacerbation/Influenza continue systemic steroids bronchodilator support monitor O2 saturation, goal O2 sat: 88-92% continue Tamiflu 2. Chest pain unlikely of cardiac etiology given negative serial TNI and unchanged 2D echo findings continue management for underlying COPD exac 3. ESRD On HD Nephrology on board and consultation appreciated continue HD on MWF 4. Hyponatremia Chronic clinically asymptomatic will continue to closely monitor 5. DM sliding scale insulin algorithm monitor FS and BG ADA diet 6. CHF Not in acute exacerbation continue home meds 2D echo noted 7. HTN BP within acceptable range continue home meds 8. Sacral Decubitus chronic continue wound care frequent turning 9. DVT ppx heparin SQ 10. UTI urine culture positive for E.Coli MDRO ID consultation requested given pt's recurrent UTI with same organism with an indwelling pereira catheter pt currently asymptomatic will continue abx management as per ID - Constitutional Vitals: Temp Pulse Resp BP Pulse Ox 97.3 F L 77 18 161/62 96 11/15/17 09:25 11/15/17 07:40 11/15/17 09:25 11/15/17 12:10 11/15/17 07:40 General appearance: Present: cooperative, A&O X 3, pleasant, no acute distress, obese, answers questions appropriately - Head Head exam: Present: atraumatic, normocephalic - Eye Eye exam: Present: conjuntiva pink, sclera anicteric - Respiratory Respiratory exam: Absent: respiratory distress, wheezes - Cardiovascular Cardiovascular exam: Present: RRR, +S1, +S2. Absent: diastolic murmur, gallop, rubs, systolic murmur - GI/Abdominal GI/Abdominal exam: Present: normal bowel sounds, soft, no peritoneal signs. Absent: distended, tenderness - Extremities Exam Extremities exam: Present: warm, radial pulses palpable and symmetrical. Absent : calf tenderness - Neurological Exam Neurological exam: Present: alert, oriented X3 Internal Medicine: Result - Labs CBC & Chem 7: 11/15/17 03:40 11/15/17 03:40 Labs: Short CBC 11/15/17 Range/Units 03:40 WBC 6.4 (4.3-11.1) K/mcL Hgb 10.3 L (11.5-15.4) g/dL Hct 32.4 L (35.3-44.9) % Plt Count 151 (140-400) K/mcL Neutrophils # 4.6 (1.6-8.9) K/mcL BMP 11/15/17 03:40 Sodium 127 L Potassium 4.9 Chloride 91 L Carbon Dioxide 25 BUN 73 H Creatinine 3.26 H Glucose 213 H Calcium 8.4 L - ABG Interpretation ABG results: PT/INR, D-dimer PT 10.6 Seconds (9.4-12.1) 11/11/17 11:59 D-Dimer 855 ng/mLFEU (0-500) H 11/11/17 16:22 Consult Discharge Plan - Plan Referrals: Tristen Quintana MD [Primary Care Provider] -
[2017-11-15] MEDS ORDERED: 0.9 % Sodium Chloride 1,000 ML ONE (12:51)
--- NOTE | 2017-11-15 13:07 | Infectious Disease Consult ---
Date of Encounter: 11/15/17 Time of Encounter: 13:04 Assessment and Plan (1) Multiple drug resistant organism (MDRO) culture positive Status: Acute Assessment and plan: 61-year-old female with history of recurrent UTIs secondary to ESBL Escherichia coli, as well as ESBL Klebsiella pneumonia, ESBL Proteus. On admission of 10/18/17 patient was treated with ertapenem for ESBL Escherichia coli. On 10/24/17 patient was again treated with ertapenem and then discharged with meropenem which she completed 11/02/17 CT abdomen/pelvis on 10/18/17 showed right perinephric stranding and right [place] nephrosis: Patient has planned diagnostic ureteroscopy. Patient has a Hawkins catheter in place since admission on 10/18/17 During this admission for chest pain/shortness of breath patient complained of dysuria. Also before admission she had symptoms of bladder spasm and was prescribed oxybutinin hx of nephrolithiasis Urine culture grew MDR Escherichia coli, urinalysis was dirty catch. Patient has been afebrile, initially tachycardic now resolved, without leukocytosis Currently patient is on ertapenem 500 mg daily. Patient shows no sign of urinary tract infection She has had 800 cc of urine outpute last 24 hours which is pao color much improved from previous visit where it was coffee colored. In the past month has been treated with adequate antibiotics stated above Likely she has colonization and does not require antibiotics. (2) Influenza A Status: Acute Assessment and plan: Influenza A + on oseltamavir 30mg daily continue supportive care. (3) COPD exacerbation Status: Acute Assessment and plan: as per primary (4) Sacral decubitus ulcer, stage II Status: Acute Assessment and plan: Turn Q2h dressed with minimal discharge (5) CHF (congestive heart failure) Status: Chronic Assessment and plan: as per primary Qualifiers: Congestive heart failure type: diastolic Congestive heart failure chronicity: chronic Qualified Code(s): I50.32 - Chronic diastolic (congestive ) heart failure (6) Diabetes Status: Chronic Assessment and plan: uncontrolled insulin dependent patient needs better control as glycosuria is a risk factor for recurrent UTIs. as per primary Qualifiers: Diabetes mellitus type: type 2 Diabetes mellitus complication status: with hyperglycemia Diabetes mellitus terminal computer operator insulin use: with terminal computer operator use Qualified Code(s): E11.65 - Type 2 diabetes mellitus with hyperglycemia; Z79.4 - FPC (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 of insulin (7) ESRD (end stage renal disease) on dialysis Status: Chronic Assessment and plan: ESRD on MWF dialysis as per nephrology Infectious Disease HPI - Data of Consult Patient: new to practice Consult date: 11/15/17 Requesting Physician: Cecilia Velasquez MD Primary Care Provider: Tristen Quintana MD - Consult Narrative Reason for consult: MDRO e.coli History of present illness: Ms. Riley is a 62 year old female presented on 11/26 with chief complaint of chest pain or shortness of breath. Infectious diseases consultation on 2017 for treatment recommendations of multidrug resistant Escherichia coli. 59-year-old female with past medical history of coronary artery disease, status post angioplasty/PCI 5, CABG 2 atrial fibrillation, COPD on 3 L oxygen, end- stage renal disease on Wednesday and Fridays dialysis, CHF, sacral decubitus ulcer, history of UTI secondary to ESBL Proteus, ESBL Escherichia coli , ESBL Klebsiella, history of nephrolithiasis. The past month patient has been admitted/treated for ESBL Escherichia coli twice: With initial admission on and subsequent admission 10/24/17. During first admission patient was treated with ertapenem and during the second admission meropenem. Furthermore she also had a CT of the abdomen and pelvis on 10/18/17 showing right perinephric stranding and hydronephrosis with possible nephrolithiasis and a urology was consulted and patient did not require urgent intervention. Before discharge patient had a Hawkins catheter placed. Patient followed up with urology clinic and was scheduled for a right retrograde pyelogram and right diagnostic ureteroscopy this month. Patient came in with chest pain that started 2 days before admission. Pain was substernal radiating to the back intermittent worsened with exertion. She had run out of her nitroglycerin. She had associated nausea, shortness of breath, palpitation, productive cough. She denied blurry vision, syncope, vomiting, diaphoresis. She also states a week before admission she is felt very fatigued with low-grade temperatures of 99 - 100 degrees. She had had muscle aches. She denies chills, headache, sinus pressure, runny nose, sore throat, neck pain, abdominal pain, diarrhea, lower extremity pain, rash. Patient has chronic lower extremity swelling. Also before being admitted patient reported having bladder spasms with urine leaking around her Hawkins. She reports dysuria and produces urine even though she is end -stage renal disease patient. She denies any sick contacts. 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 She reports having a cat. She is a long-term smoker. On admission patient was afebrile with a heart rate of 100 respiratory rate 18. Her white blood cell count was 10. Lactic acidosis not taken. She was started on Azithromycin for COPD exacerbation. Urine specimen was collected and urine culture indicated MDR Escherichia coli. Patient was transitioned from azithromycin to ertapenem. Furthermore she is positive for influenza A and started on oseltamivir. CT A was negative for PE, acute infectious process. Today patient says his chest pain is resolved. She continues to have productive cough. She is on 2 L of oxygen. She continues to complain of dysuria and has a Hawkins catheter in place. She is producing pao colored urine. CC: Cecilia Velasquez MD Past Med Surg Social Fam HX - Past Medical History Medical history: arthritis, asthma, atrial fibrillation, CHF, COPD, coronary artery disease, CVA, DVT, diabetes, dialysis, fibromyalgia, GERD, GI bleed, hyperlipidemia, hypertension, kidney stones, migraine, myocardial infarction, osteoporosis, peripheral artery disease, renal disease, other Psychiatric history: anxiety, depression, schizophrenia, previous psychiatric hospitalization, other - Past Surgical History Surgical History: angioplasty/stent (x5), appendectomy, cholecystectomy, coronary bypass (CABG) (Double), hysterectomy, knee replacement, other, IVC filter - Social History Smoking Status: Current every day smoker Packs per day: 1 PPD Smokeless Tobacco Status: No Alcohol use: none Drug use: none - Family History Father Race: Family Member Ethnicity: Non- Living Status: Age at : 53 Cause of : Polycythemia Hx Family Cardiac Disorders: Yes (CAD, MS) Hx Family Cancer: Yes (Polycythemia) Hx Family Endocrine Disorder: Yes (DM) Mother Race: Family Member Ethnicity: Non- Living Status: Still Living Hx Family Respiratory Disorders: Yes (End stage COPD) Brother Race: Family Member Ethnicity: Non- Living Status: Still Living Hx Family Medical Disorders: No Sister Race: Family Member Ethnicity: Non- Living Status: Still Living Hx Family Cardiac Disorders: Yes (CAD) Hx Family GI Disorders: Yes (Gastric bypass) Hx Family Endocrine Disorder: Yes (Thyroid disease) Hx Family Musculoskeletal Disorders: Yes (Arthritis) Infectious Disease-CN:Meds Clopidogrel [Plavix] 75 mg PO DAILY 05/11/15 [History] Omeprazole [PriLOSEC] 20 mg PO BID 05/11/15 [History] Colestipol HCl [Colestid] 1 gm PO BID 06/12/15 [History] Carvedilol 12.5 mg PO BID 10/28/15 [History] Calcium Acetate [Phos-LO] 1,334 mg PO TIDWM 09/06/16 [History] Folic Acid/Vit Bcomp,C [Renal Vitamin Tablet] 0.8 mg PO DAILY 04/15/17 [History] ARIPiprazole [Abilify] 10 mg PO DAILY 09/13/17 [History] Amitriptyline HCl 100 mg PO HS 09/13/17 [History] Aspirin Enteric Coated [Aspirin EC] 81 mg PO DAILY 09/13/17 [History] Budesonide/Formoterol 160/4.5 [Symbicort 160/4.5] 2 puff IH BIDR 09/13/17 [ History] Cholecalciferol (Vitamin D3) [Vitamin D3] 50,000 unit PO TH 09/13/17 [History] Insulin LISPRO [HumaLOG] 20 units SQ TIDAC 09/13/17 [History] Lidocaine/Prilocaine CREAM [Emla] 1 appl TP AD PRN 09/13/17 [History] OxyCODONE ER (12 HR) [OxyCONTIN] 20 mg PO Q12HR 09/13/17 [History] OxyCODONE/APAP 10/325 [Percocet 10/325 MG] 1 tab PO Q6H PRN 09/13/17 [History] Oxygen 2 l NS AD 09/13/17 [History] Sennosides [Senna] 8.6 mg PO BID 09/13/17 [History] Sevelamer [Renvela] 800 mg PO TIDWM 09/13/17 [History] Albuterol Neb [AccuNeb] 0.63 mg IH Q6H PRN 10/18/17 [History] Gabapentin [Neurontin] 100 mg PO TID #60 capsule 10/21/17 [Rx] Insulin Glargine,Hum.rec.anlog [Lantus Solostar] 45 unit SQ BID #0 10/21/17 [Rx] Rosuvastatin [Crestor] 10 mg PO HS #15 tablet 10/21/17 [Rx] Docusate Sodium [Colace] 100 mg PO BID #60 capsule 10/26/17 [Rx] amLODIPine [Norvasc] 5 mg PO DAILY 10/26/17 [History] metOLazone [Zaroxolyn] 1 tab PO DAILY 10/26/17 [History] Collagenase Oint [Santyl] 1 appl TP AD 11/11/17 [History] Oxybutynin [Ditropan] 5 mg PO TID 11/11/17 [History] 3 Allergy/AdvReac Type Severity Reaction Status Date / Time No Known Allergies Allergy Verified 11/11/17 11:44 All systems: reviewed and no additional remarkable complaints except as stated Exam - Constitutional Vitals: Temp Pulse Resp BP Pulse Ox 97.3 F L 77 18 161/62 96 11/15/17 09:25 11/15/17 07:40 11/15/17 09:25 11/15/17 12:10 11/15/17 07:40 - Additional findings Additional findings: General: without distress HEENT: Head atraumatic, normocephalic, EOMI, PERRL, neck nontender to palpation , absent lymphadenopathy, dry mucous membranes Heart: Regular rate and rhythm with no murmur Lungs: Bilateral inspiratory wheezing and rhonchi. Abdomen: Soft nontender, nondistended positive bowel sounds. Skin: warm and dry, stage II sacral decubitus ulcer, right heel wound dressed : Pao color urine per Hawkins catheter. absent flank pain Extremities: Nonpitting pedal edema Neuro: Alert and oriented 3 Vascular: Pedal and radial pulses 2 out of 4 Line: Left AV fistula. Infectious Disease CN: Results - Labs CBC & Chem 7: 11/15/17 03:40 11/15/17 03:40 Cultures: Cultures 11/12/17 Unknown Urine Culture - Final Urine,Clean Catch Escherichia coli MDRO Serology: Serology 11/13/17 11/12/17 Range/Units 00:30 18:21 Urine Color Yellow (Yellow) Urine Clarity Turbid A (Clear) Urine pH 5.5 (5.0-8.0) pH Units Ur Specific [place] 1.022 (1.010-1.025) Urine Protein 100 H (Neg-Trace) mg/dL Urine Glucose (UA) Normal (Normal) mg/dL Urine Ketones Negative (Negative) mg/dL Urine Blood Large H (Negative) Urine Nitrite Negative (Negative) Urine Bilirubin Small H (Negative) Urine Urobilinogen Normal (Normal) mg/dL Ur Leukocyte Esterase Large H (Negative) Urine Microscopic RBC Present (0-3) per hpf Urine Microscopic WBC TNTC H (0-3) per hpf Ur Squamous Epith Cells Many H (None-Few) per lpf Urine Bacteria Many H (None-Few) per hpf Hyaline Casts Test Not Performed Urine Yeast Present H (None Seen) per hpf Ur Culture Indicated? NO. (NO) Chlamy pneumoniae PCR Not Detected (Not Detect) Adenovirus (PCR) Not Detected (Not Detect) B. pertussis DNA (PCR) Not Detected (Not Detect) B.parapertussis DNA PCR Not Detected (Not Detect) Coronavirus OC43 (PCR) Not Detected (Not Detect) Coronavirus HKU1 (PCR) Not Detected (Not Detect) Coronavirus 229E (PCR) Not Detected (Not Detect) Coronavirus NL63 (PCR) Not Detected (Not Detect) Human Metapneumovir PCR Not Detected (Not Detect) Influenza A (H1) PCR Not Detected (Not Detect) Influ A (H1N1/09) PCR Not Detected (Not Detect) Influenza A (H3) PCR DETECTED A (Not Detect) Influenza A Untype (PCR) Not Detected (Not Detect) Influenza Type B (PCR) Not Detected (Not Detect) M.pneumoniae DNA (PCR) Not Detected (Not Detect) Parainfluenza 1 (PCR) Not Detected (Not Detect) Parainfluenza 2 (PCR) Not Detected (Not Detect) Parainfluenza 3 (PCR) Not Detected (Not Detect) Parainfluenza 4 (PCR) Not Detected (Not Detect) RSV (PCR) Not Detected (Not Detect) Entero/Rhino (PCR) Not Detected (Not Detect) Consult Discharge Plan - Plan Referrals: Tristen Quintana MD [Primary Care Provider] - - Attending Attestation I examined this patient and my medical decision-making was reviewed with the Resident Physician. I agree with the documented findings, disposition and treatment plan as described except to the extent set forth below. \\Patient is a 62-year-old woman who came in to [facility] on November 11, 2017 complaining of chest pain and shortness of breath. We are consulted on 11/15/2017 for influenza A and urinary tract infection with ESBL Escherichia coli. Patient is a 62-year-old woman with past medical history mentioned below including diabetes mellitus type 2 on insulin, end-stage renal disease on hemodialysis Wednesday was in Wednesday, asthma, A. fib, CHF and COPD and history of CVA came in to [facility] on 11/11/2017 was chest pain, shortness of breath that radiated to left arm left neck and back starting on the day of admission. Patient denied any fevers or chills at home delighted any night sweats. Patient did have cough but she states that was close to her baseline. Patient denied any sick contacts. Patient denied any nausea or vomiting diarrhea or constipation. Initially when the patient came and her MAXIMUM TEMPERATURE was 99.2 and she had a temperature of 100 on 11/13/2017. Patient was initially tachycardic. Her presenting WBC was 10,000 with neutrophilic predominance no bands. Patients A1c is 11.1. CT chest done on 11/11/2017 which revealed no evidence of pulmonary embolism or acute pulmonary abnormality. A urinalysis was done which showed many epithelial cells and it looks like it was a poor specimen. Urine culture did grow Escherichia coli that was multidrug resistant (S: Ertapenem, gentamicin , meropenem, nitrofurantoin, Tygacil, tobramycin and trimethoprim sulfa) at this point, no signs of urinary symptoms. Doing well overall discussed with santos Millan to remove kelli i think urine is colonized and I wouldn't treat, if symptoms occur, I would do oral bactrim or fosfomycin d/c ertapenem continue tamiflu, 30mg daily duration of treatment 5 days
[2017-11-16] MEDS: Ipratropium/Albuterol Neb 3 ML IH SCH ×4 (03:53→21:00)
[2017-11-16] MEDS: *HR* Heparin 5,000 UNIT/ML VIAL SQ SCH ×3 (05:24→21:28)
[2017-11-16] MEDS: *HR* OxyCODONE ER (12 HR) 20 MG TABLET PO SCH ×2 (05:24→17:12)
[2017-11-16 05:40] LABS: Immature Granulocytes % 0.8 % (0-4); Mean Corpuscular Hemoglobin 26.7 pg (28.0-33.3); Mean Platelet Volume 10.7 fL (9.4-12.4); Red Cell Distribution Width 18.2 % (11.5-14.5)
[2017-11-16 05:42] LABS: Hematocrit 33.6 % (35.3-44.9); Hemoglobin 10.5 g/dL (11.5-15.4); Lymphocytes % 16.4 %; Mean Corpuscular HGB Conc 31.3 g/dL (31.6-35.5); Mean Corpuscular Volume 85.5 fL (83.0-100.0); Monocytes # 0.6 K/mcL (0.0-1.3); Monocytes % 9.2 %; Neutrophils # 4.6 K/mcL (1.6-8.9); Platelet Count 147 K/mcL (140-400); Red Blood Count 3.93 M/mcL (3.82-4.97); Segmented Neutrophils % 73.6 %
[2017-11-16 05:58] LABS: Calcium 8.5 mg/dL (8.6-10.3); Magnesium 2.2 mg/dL (1.6-2.6); Phosphorous 4.6 mg/dL (2.7-4.5); Potassium 4.7 mEq/L (3.5-5.1)
[2017-11-16] MEDS: Insulin DETEMIR 100 UNIT/ML X5UNITS SQ SCH ×2 (08:09→21:28)
[2017-11-16] MEDS: predniSONE 20 MG TABLET PO SCH (08:09)
[2017-11-16] MEDS: Calcium Acetate 667 MG CAPSULE PO SCH ×3 (08:09→17:11)
[2017-11-16] MEDS: metOLazone 2.5 MG TABLET PO SCH (08:09)
[2017-11-16] MEDS: Renal Vitamin 1 MG CAPSULE PO SCH (08:09)
[2017-11-16] MEDS: ARIPiprazole 10 MG TABLET PO SCH (08:10)
[2017-11-16] MEDS: Oseltamivir Phosphate 30 MG CAPSULE PO SCH (08:10)
[2017-11-16] MEDS: Cholecalciferol (D-3) 1,000 UNIT TABLET PO SCH (08:10)
[2017-11-16] MEDS: Aspirin Enteric Coated 81 MG Tablet PO SCH (08:10)
[2017-11-16] MEDS: Sennosides 8.6 MG TABLET PO SCH ×2 (08:10→21:27)
[2017-11-16] MEDS: Gabapentin 100 MG CAPSULE PO SCH ×3 (08:10→21:27)
[2017-11-16] MEDS: GuaiFENesin/Dextromethorphan TABLET PO SCH ×2 (08:10→21:27)
[2017-11-16] MEDS: amLODIPine 5 MG TABLET PO SCH (08:10)
[2017-11-16] MEDS: *HR* Promethazine 25 MG/ML VIAL IVP PRN ×3 (08:11→19:49)
[2017-11-16] MEDS: Insulin LISPRO 300 UNITS/3 ML VIAL SQ SCH ×7 (08:11→22:44)
[2017-11-16] MEDS ORDERED: Nitroglycerin 0.4 MG TAB.SUBL SL PRN (08:51)
--- NOTE | 2017-11-16 09:00 | Infectious Disease Progress No ---
Addendum entered and electronically signed by Miguel Bond DO 09:06: Physical exam: General: without distress Heart: Regular rate and rhythm with no murmur Lungs:clear b/l Abdomen: Soft nontender, nondistended positive bowel sounds. Skin: warm and dry, stage II sacral decubitus ulcer, right heel wound dressed : pereira d/c Extremities: Nonpitting pedal edema Neuro: Alert and oriented 3 Vascular: Pedal and radial pulses 2 out of 4 Line: Left AV fistula. 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 On admission of 10/18/17 patient was treated with ertapenem for ESBL Escherichia coli. On 10/24/17 patient was again treated with ertapenem and then discharged with meropenem which she completed 11/02/17 CT abdomen/pelvis on 10/18/17 showed right perinephric stranding and right [place] nephrosis: Patient has planned diagnostic ureteroscopy. Patient has a Pereira catheter in place since admission on 10/18/17 During this admission for chest pain/shortness of breath patient complained of dysuria. Also before admission she had symptoms of bladder spasm and was prescribed oxybutinin hx of nephrolithiasis Urine culture grew MDR Escherichia coli, urinalysis was dirty catch. Patient has been afebrile, initially tachycardic now resolved, without leukocytosis Likely colonization was on ertapenam wich is now discontinued. pereira discontinued. denies urinary symptoms no treatment for now, we will just observe, if symptoms of UTI recur, will treat with oral options (2) Influenza A Current Visit: Yes Status: Acute Influenza A + on oseltamavir 30mg daily, give after dialysis. Total five days continue supportive care. (3) COPD exacerbation Current Visit: Yes Status: Acute as per primary (4) Sacral decubitus ulcer, stage II Current Visit: Yes Status: Acute Turn Q2h dressed with minimal discharge (5) CHF (congestive heart failure) Current Visit: Yes Status: Chronic as per primary Qualifiers: Congestive heart failure type: diastolic Congestive heart failure chronicity: chronic Qualified Code(s): I50.32 - Chronic diastolic (congestive ) heart failure (6) Diabetes Current Visit: Yes Status: Chronic uncontrolled insulin dependent patient needs better control as glycosuria is a risk factor for recurrent UTIs. as per primary Qualifiers: Diabetes mellitus type: type 2 Diabetes mellitus complication status: with hyperglycemia Diabetes mellitus long-term insulin use: with rat exterminator use Qualified Code(s): E11.65 - Type 2 diabetes mellitus with hyperglycemia; Z79.4 - terminal supervisor (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 of insulin (7) ESRD (end stage renal disease) on dialysis Current Visit: Yes Status: Chronic - Subjective Interval history: Patient sitting up in bed, pleasant, eating breakfast. Patient's pereira is out. Denies urinary symptoms. Able to pass urine without difficulty. Denies sob. Continues to have productive sputum. She remains afebrile. Infect Dis PN-Objective Data - Labs CBC & Chem 7: 11/16/17 04:35 11/16/17 04:35 Labs: Laboratory Results - last 24 hr 11/15/17 11/15/17 11/15/17 07:44 10:31 12:25 WBC RBC Hgb Hct MCV MCH MCHC RDW Plt Count MPV Immature Gran % Seg Neutrophils % Lymphocytes % Monocytes % Eosinophils % Basophils % Neutrophils # Lymphocytes # Monocytes # Eosinophils # Basophils # Sodium Potassium Chloride Carbon Dioxide BUN Creatinine Est GFR ( Amer) Est GFR (Non-Af Amer) BUN/Creatinine Ratio Glucose POC Glucose 259 H 121 H 167 H Calculated Osmolality Calcium Phosphorus Magnesium 11/15/17 11/15/17 11/16/17 13:54 17:02 04:35 WBC 6.2 RBC 3.93 Hgb 10.5 L Hct 33.6 L MCV 85.5 MCH 26.7 L MCHC 31.3 L RDW 18.2 H Plt Count 147 MPV 10.7 Immature Gran % 0.8 Seg Neutrophils % 73.6 Lymphocytes % 16.4 Monocytes % 9.2 Eosinophils % 0.0 Basophils % 0.0 Neutrophils # 4.6 Lymphocytes # 1.0 Monocytes # 0.6 Eosinophils # 0.0 Basophils # 0.0 Sodium Potassium Chloride Carbon Dioxide BUN Creatinine Est GFR ( Amer) Est GFR (Non-Af Amer) BUN/Creatinine Ratio Glucose POC Glucose 210 H 164 H Calculated Osmolality Calcium Phosphorus Magnesium 11/16/17 04:35 WBC RBC Hgb Hct MCV MCH MCHC RDW Plt Count MPV Immature Gran % Seg Neutrophils % Lymphocytes % Monocytes % Eosinophils % Basophils % Neutrophils # Lymphocytes # Monocytes # Eosinophils # Basophils # Sodium 130 L Potassium 4.7 Chloride 93 L Carbon Dioxide 29 BUN 54 H Creatinine 2.08 H Est GFR ( Amer) 29 L Est GFR (Non-Af Amer) 24 L BUN/Creatinine Ratio 26 Glucose 188 H POC Glucose Calculated Osmolality 290 Calcium 8.5 L Phosphorus 4.6 H Magnesium 2.2 Cultures: Cultures 11/12/17 Unknown Urine Culture - Final Urine,Clean Catch Escherichia coli MDRO Serology 11/13/17 11/12/17 Range/Units 00:30 18:21 Urine Color Yellow (Yellow) Urine Clarity Turbid A (Clear) Urine pH 5.5 (5.0-8.0) pH Units Ur Specific [place] 1.022 (1.010-1.025) Urine Protein 100 H (Neg-Trace) mg/dL Urine Glucose (UA) Normal (Normal) mg/dL Urine Ketones Negative (Negative) mg/dL Urine Blood Large H (Negative) Urine Nitrite Negative (Negative) Urine Bilirubin Small H (Negative) Urine Urobilinogen Normal (Normal) mg/dL Ur Leukocyte Esterase Large H (Negative) Urine Microscopic RBC Present (0-3) per hpf Urine Microscopic WBC TNTC H (0-3) per hpf Ur Squamous Epith Cells Many H (None-Few) per lpf Urine Bacteria Many H (None-Few) per hpf Hyaline Casts Test Not Performed Urine Yeast Present H (None Seen) per hpf Ur Culture Indicated? NO. (NO) Chlamy pneumoniae PCR Not Detected (Not Detect) Adenovirus (PCR) Not Detected (Not Detect) B. pertussis DNA (PCR) Not Detected (Not Detect) B.parapertussis DNA PCR Not Detected (Not Detect) Coronavirus OC43 (PCR) Not Detected (Not Detect) Coronavirus HKU1 (PCR) Not Detected (Not Detect) Coronavirus 229E (PCR) Not Detected (Not Detect) Coronavirus NL63 (PCR) Not Detected (Not Detect) Human Metapneumovir PCR Not Detected (Not Detect) Influenza A (H1) PCR Not Detected (Not Detect) Influ A (H1N1/09) PCR Not Detected (Not Detect) Influenza A (H3) PCR DETECTED A (Not Detect) Influenza A Untype (PCR) Not Detected (Not Detect) Influenza Type B (PCR) Not Detected (Not Detect) M.pneumoniae DNA (PCR) Not Detected (Not Detect) Parainfluenza 1 (PCR) Not Detected (Not Detect) Parainfluenza 2 (PCR) Not Detected (Not Detect) Parainfluenza 3 (PCR) Not Detected (Not Detect) Parainfluenza 4 (PCR) Not Detected (Not Detect) RSV (PCR) Not Detected (Not Detect) Entero/Rhino (PCR) Not Detected (Not Detect) Exam - Constitutional Vitals: Temp Pulse Resp BP Pulse Ox 97.6 F 69 16 153/72 98 11/16/17 07:00 11/16/17 07:00 11/16/17 07:00 11/16/17 07:00 11/16/17 07:00 Consult Discharge Plan - Plan Referrals: Tristen Quintana MD [Primary Care Provider] - 11/23/17 1:45 pm (please follow up as schedule...) - Attending Attestation I examined this patient and my medical decision-making was reviewed with the Resident Physician. I agree with the documented findings, disposition and treatment plan as described except to the extent set forth below.
[2017-11-16] MEDS ORDERED: 0.9 % Sodium Chloride 250 ML IVC PRN (09:49)
--- NOTE | 2017-11-16 10:05 | Nephrology Progress Note ---
Date of Encounter: 11/16/17 Time of Encounter: 10:02 - Assessment and Plan (1) ESRD (end stage renal disease) on dialysis Current Visit: Yes Status: Chronic Plan for UF today If discharged today, f/u tomorrow with her regular dialysis center [facility] Continue renal diet Continue strict I/Os Avoid nephrotoxins (2) DM2 (diabetes mellitus, type 2) Current Visit: No Status: Chronic per primary team Qualifiers: Diabetes mellitus complication status: with kidney complications Diabetes mellitus complication detail: with chronic kidney disease Diabetes mellitus [facility] insulin use: with exterminator helper termite use Chronic kidney disease stage: on chronic dialysis Qualified Code(s): E11.22 - Type 2 diabetes mellitus with diabetic chronic kidney disease; N18.6 - End stage renal disease; Z79.4 - equipment 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 Resting quietly in bed. Objective - Vital Signs Vital signs: Vital Signs Temp Pulse Resp BP Pulse Ox 11/16/17 07:00 97.6 F 69 16 153/72 98 11/16/17 04:37 97.7 F 70 16 147/76 95 11/16/17 03:53 18 98 11/16/17 00:43 98.5 F 73 16 152/65 98 11/15/17 21:45 98.5 F 71 16 148/81 99 11/15/17 21:26 18 96 11/15/17 17:05 98.4 F 77 14 145/63 100 11/15/17 15:36 18 96 11/15/17 13:25 97.7 F 18 163/79 11/15/17 12:55 153/70 11/15/17 12:40 154/67 11/15/17 12:25 154/71 11/15/17 12:10 161/62 11/15/17 11:55 164/64 11/15/17 11:40 164/67 11/15/17 11:25 165/74 11/15/17 11:10 155/65 11/15/17 10:55 141/67 11/15/17 10:40 162/75 11/15/17 10:25 151/71 11/15/17 10:10 157/71 Intake and Output 11/15/17 11/16/17 11/16/17 23:59 07:59 15:59 Intake Total 480 / 480 Balance 480 / 480 Intake: Oral 480 / 480 Other: Meal Dinner Percent of Meal Consumed 100% Stool Size Small Stool Consistency formed Weight 106.821 kg Blood Glucose* 116 201 Patient Weight 11/16/17 23:59 Weight 106.821 kg - General Appearance General appearance: Present: obese EENT: Present: ATNC, mucous membranes moist, hearing intact, vision intact Neck: Present: supple Respiratory: Present: clear Cardiology: Present: edema (better then normal-BLL), normal S1, normal S2 Dialysis Vascular Access: Arteriovenous Fistula Gastrointestinal: Present: no tenderness, no guarding Integumentary: Present: warm and dry Neurologic: Present: alert and oriented x3 Psychiatric: Present: mood/affect appropriate, cooperative - Lab 11/16/17 04:35 11/16/17 04:35 Most recent lab results Calcium 8.5 mg/dL (8.6-10.3) L 11/16/17 04:35 Phosphorus 4.6 mg/dL (2.7-4.5) H 11/16/17 04:35 Magnesium 2.2 mg/dL (1.6-2.6) 11/16/17 04:35 Consult Discharge Plan - Plan Referrals: Tristen Quintana MD [Primary Care Provider] - 11/23/17 1:45 pm (please follow up as schedule...)
--- NOTE | 2017-11-16 10:56 | Event Note ---
Date of Encounter: 11/16/17 Time of Encounter: 10:30 - Cardiology Event Note Reviewed prior cardiac testing with Dr. Cardenas. [facility] 2016: patent SVG-RCA; otherwise moderate, non-obstructive CAD Regadenoson nuclear 09/06/16: perfusion imaging negative for ischemia or infarct. Patient has hx of ESRD on HD and is DNRCCA-DNI. Troponin negative x3. TTE shows preserved LVEF with normal wall motion. Would recommend conservative medical therapy in the setting of Influenza A. Will add Imdur. Continue home CV medications including asa, statin, plavix, and betablocker. Echocardiogram 11/12/17 15:37 Impressions: LVEF 60%. Mild left ventricular diastolic dysfunction. Normal right ventricular structure and function. Mild aortic regurgitation. Mild mitral regurgitation. Mild tricuspid regurgitation. Mild pulmonary hypertension. Left Ventricular Wall Motion: Rest Echo Findings All wall segments showed normal motion. Active Medications Acetaminophen (Tylenol) 650 mg PO Q6HR PRN PRN Reason: Mild Pain/Fever Stop: 05/13/18 14:30 Albuterol Sulfate (Accuneb) 0.63 mg IH Q6H PRN PRN Reason: Shortness Of Breath Stop: 05/13/18 14:44 Last Admin: 11/11/17 19:58 Dose: 0.63 mg Albuterol/Ipratropium (Duoneb) 3 ml IH [id number] [facility] Stop: 05/14/18 16:01 Last Admin: 11/16/17 03:53 Dose: 3 ml Amitriptyline HCl (Elavil) 100 mg PO HS NATALIE Stop: 05/13/18 21:01 Last Admin: 11/15/17 21:58 Dose: 100 mg Amlodipine Besylate (Norvasc) 5 mg PO DAILY NATALIE PRN Reason: Protocol Stop: 05/14/18 09:01 Last Admin: 11/16/17 08:10 Dose: 5 mg Aripiprazole (Abilify) 10 mg PO DAILY [facility] Stop: 05/14/18 09:01 Last Admin: 11/16/17 08:10 Dose: 10 mg Aspirin (Aspirin Ec) 81 mg PO DAILY [facility] Stop: 05/14/18 09:01 Last Admin: 11/16/17 08:10 Dose: 81 mg Budesonide/Formoterol Fumarate (Symbicort) 2 puff IH BIDR NATALIE PRN Reason: Protocol Stop: 05/13/18 22:01 Last Admin: 11/15/17 21:26 Dose: 2 puff Calcium Acetate (Phos-Lo) 1,334 mg PO TIDWM [facility] Stop: 05/13/18 17:01 Last Admin: 11/16/17 08:09 Dose: 1,334 mg Carvedilol (Coreg) 12.5 mg PO BIDWM [facility] Stop: 05/13/18 17:01 Last Admin: 11/16/17 08:09 Dose: 12.5 mg Clopidogrel Bisulfate (Plavix) 75 mg PO DAILY [facility] Stop: 05/14/18 09:01 Last Admin: 11/16/17 08:10 Dose: 75 mg Dextrose/Water (Dextrose 50% (Syg)) 25 ml IVP AD PRN PRN Reason: Hypoglycemia Stop: 05/13/18 14:47 Docusate Sodium (Colace) 100 mg PO BID [facility] PRN Reason: Protocol Stop: 05/13/18 21:01 Last Admin: 11/16/17 08:10 Dose: 100 mg Gabapentin (Neurontin) 100 mg PO TID [facility] Stop: 05/13/18 15:01 Last Admin: 11/16/17 08:10 Dose: 100 mg Glucagon (Glucagen) 1 mg IM ONCE PRN PRN Reason: Hypoglycemia Stop: 05/13/18 14:47 Glucose (Gluctose) 15 gm PO ONCE PRN PRN Reason: Hypoglycemia Stop: 05/13/18 14:47 Glucose (Gluctose) 30 gm PO ONCE PRN PRN Reason: Hypoglycemia Stop: 05/13/18 14:47 Guaifenesin (Mucinex Dm) 1 each PO BID [facility] Stop: 05/13/18 21:01 Last Admin: 11/16/17 08:10 Dose: 1 each Guaifenesin (Robitussin Liq) 200 mg PO Q6HR PRN PRN Reason: Cough Stop: 05/14/18 04:01 Last Admin: 11/14/17 18:46 Dose: 200 mg Heparin Sodium (Porcine) (Heparin) 5,000 unit SQ Q8HCO [facility] Stop: 05/13/18 22:01 Last Admin: 11/16/17 05:24 Dose: 5,000 unit Hydralazine HCl (Hydralazine) 10 mg IVP Q6HR PRN PRN Reason: SBP>150 Stop: 05/17/18 16:08 Dextrose (Dextrose 5%) 1,000 mls @ 100 mls/hr IVC .Q10H PRN PRN Reason: HYPOGLYCEMIA Stop: 05/13/18 14:47 Sodium Chloride (0.9 % Sodium Chloride) 1,000 mls @ 0 mls/hr PRIME .Q0M NATALIE PRN Reason: As Directed Stop: 05/15/18 10:31 Sodium Chloride (0.9 % Sodium Chloride) 250 mls @ 937.5 mls/hr IVC .Q16M PRN PRN Reason: Hypotension Stop: 05/17/18 07:30 Sodium Chloride (0.9 % Sodium Chloride) 250 mls @ 937.5 mls/hr IVC .Q16M PRN PRN Reason: Hypotension Stop: 05/18/18 09:50 Insulin Detemir (Levemir) 45 unit SQ BID NATALIE Stop: 05/13/18 21:01 Last Admin: 11/16/17 08:09 Dose: 45 unit Insulin Human Lispro (Humalog) 20 units SQ TIDWM [facility] Stop: 05/13/18 17:01 Last Admin: 11/16/17 08:11 Dose: 20 units Insulin Human Lispro (Humalog) 0 units SQ HS NATALIE PRN Reason: Protocol Stop: 05/14/18 21:01 Last Admin: 11/15/17 21:51 Dose: Not Given Insulin Human Lispro (Humalog) 0 units SQ TIDAC NATALIE PRN Reason: Protocol Stop: 05/14/18 12:01 Last Admin: 11/16/17 08:11 Dose: 6 units Lidocaine/Prilocaine (Emla) 5 gm TP AD PRN PRN Reason: Prior to Dialysis Stop: 05/13/18 14:44 Metolazone (Zaroxolyn) 5 mg PO DAILY [facility] Stop: 05/14/18 09:01 Last Admin: 11/16/17 08:09 Dose: 5 mg Naloxone HCl (Narcan) 0.4 mg IVP Q2MIN PRN PRN Reason: SEE COMMENTS Stop: 05/13/18 14:30 Nitroglycerin (Nitroglycerin) 0.4 mg SL Q5MIN PRN PRN Reason: Chest Pain Stop: 05/18/18 08:52 Last Admin: 11/16/17 08:56 Dose: 0.4 mg Omeprazole (Prilosec) 20 mg PO BID NATALIE PRN Reason: Protocol Stop: 05/13/18 21:01 Last Admin: 11/16/17 08:09 Dose: 20 mg Oxybutynin Chloride (Ditropan) 5 mg PO TID NATALIE PRN Reason: Protocol Stop: 05/13/18 15:01 Last Admin: 11/16/17 08:10 Dose: 5 mg Oxycodone HCl (Oxycontin) 20 mg PO Q12HR NATALIE Stop: 05/13/18 18:01 Last Admin: 11/16/17 05:24 Dose: 20 mg Oxycodone/Acetaminophen (Percocet 10/325) 1 each PO Q6H PRN PRN Reason: Severe Pain (7-10) Stop: 05/13/18 14:44 Last Admin: 11/14/17 20:50 Dose: 1 each Prednisone (Prednisone) 40 mg PO DAILY NATALIE Stop: 05/13/18 14:46 Last Admin: 11/16/17 08:09 Dose: 40 mg Promethazine HCl (Phenergan) 12.5 mg IVP Q6HR PRN PRN Reason: Nausea And Vomiting Stop: 05/13/18 16:46 Last Admin: 11/16/17 08:11 Dose: 12.5 mg Rosuvastatin Calcium (Crestor) 10 mg PO HS [facility] Stop: 05/14/18 21:01 Last Admin: 11/15/17 21:59 Dose: 10 mg Senna (Senna) 8.6 mg PO BID NATALIE Stop: 05/13/18 21:01 Last Admin: 11/16/17 08:10 Dose: 8.6 mg Sevelamer HCl (Renvela) 800 mg PO TIDWM NATALIE Stop: 05/13/18 17:01 Last Admin: 11/16/17 08:09 Dose: 800 mg Vitamin B Complex/Vit C/Folic Acid (Renal Caps Softgel) 1 mg PO DAILY NATALIE Stop: 05/14/18 09:01 Last Admin: 11/16/17 08:09 Dose: 1 mg Vitamin D (Vitamin D) 1,000 unit PO DAILY NATALIE Stop: 05/13/18 14:46 Last Admin: 11/16/17 08:10 Dose: 1,000 unit
[2017-11-16] MEDS: Budesonide/Formoterol 160/4.5 MDI IH SCH ×2 (11:06→21:02)
[2017-11-16] MEDS ORDERED: 0.9 % Sodium Chloride 2,000 ML ONE (13:25)
[2017-11-16] MEDS: Isosorbide MONOnitrate (24 HR) 30 MG TAB.ER.24H PO SCH (13:41)
--- NOTE | 2017-11-16 14:14 | Internal Med Progress Note ---
Date of Encounter: 11/16/17 Time of Encounter: 14:08 - Subjective Interval history: Patient seen and examined at bedside. Resting in bed, was reported of having pressure like substernal chest pain this morning, which was relieved with SL Nitro. TnI negative, EKG no acute changes. Cardiology evaluation requested. Pt willing to undergo nuclear stress test in am and if needing willing to further proceed with [facility] Assessment/Plan: 1. COPD exacerbation/Influenza continue systemic steroids (pt finished 5 days of Prednisone_ Respiratory status back to baseline bronchodilator support monitor O2 saturation, goal O2 sat: 88-92% continue Tamiflu 2. Chest pain will obtain serial TNI nuclear stress test in am cardiology evaluation requested 3. ESRD On HD Nephrology on board and consultation appreciated continue HD on MWF 4. Hyponatremia Chronic clinically asymptomatic will continue to closely monitor 5. DM sliding scale insulin algorithm monitor FS and BG ADA diet 6. CHF Not in acute exacerbation continue home meds 2D echo noted 7. HTN Noted to remain hypertensive will increase home dose of Amlodpine to 10mg PO qd will continue to closely monitor BP 8. Sacral Decubitus chronic continue wound care frequent turning 9. DVT ppx heparin SQ 10. UTI urine culture positive for E.Coli MDRO ID evaluation appreciated will monitor Off abx at this time - Constitutional Vitals: Temp Pulse Resp BP Pulse Ox 97.7 F 67 15 154/76 98 11/16/17 12:09 11/16/17 10:38 11/16/17 12:09 11/16/17 12:09 11/16/17 10:38 General appearance: Present: cooperative, A&O X 3, pleasant, no acute distress, obese, answers questions appropriately - Head Head exam: Present: atraumatic, normocephalic - Eye Eye exam: Present: conjuntiva pink, sclera anicteric - Respiratory Respiratory exam: Present: CTAB. Absent: accessory muscle use, rales, rhonchi, wheezes - Cardiovascular Cardiovascular exam: Present: RRR, +S1, +S2. Absent: diastolic murmur, gallop, rubs, systolic murmur - GI/Abdominal GI/Abdominal exam: Present: normal bowel sounds, soft, no peritoneal signs. Absent: distended, tenderness - Extremities Exam Extremities exam: Present: warm, radial pulses palpable and symmetrical ( chronic venous stasis in b/l LE ). Absent: calf tenderness - Neurological Exam Neurological exam: Present: alert, oriented X3 - Psychiatric Psychiatric exam: Present: normal affect, normal mood Internal Medicine: Result - Labs CBC & Chem 7: 11/16/17 04:35 11/16/17 04:35 Labs: Short CBC 11/16/17 Range/Units 04:35 WBC 6.2 (4.3-11.1) K/mcL Hgb 10.5 L (11.5-15.4) g/dL Hct 33.6 L (35.3-44.9) % Plt Count 147 (140-400) K/mcL Neutrophils # 4.6 (1.6-8.9) K/mcL BMP 11/16/17 04:35 Sodium 130 L Potassium 4.7 Chloride 93 L Carbon Dioxide 29 BUN 54 H Creatinine 2.08 H Glucose 188 H Calcium 8.5 L Cardiac Enzymes 11/16/17 Range/Units 09:29 Troponin I < 0.03 (< 0.04) ng/mL - ABG Interpretation ABG results: PT/INR, D-dimer PT 10.6 Seconds (9.4-12.1) 11/11/17 11:59 D-Dimer 855 ng/mLFEU (0-500) H 11/11/17 16:22 Consult Discharge Plan - Plan Referrals: Tristen Quintana MD [Primary Care Provider] - 11/23/17 1:45 pm (please follow up as schedule...)
[2017-11-16] MEDS ORDERED: amLODIPine 5 MG TABLET PO ONE (14:15)
--- NOTE | 2017-11-16 19:40 | Electrocardiograph Report ---
[address] [place] [address] Test Date: 2017-11-16 Pat Name: Lynnette Riley Department: 112 Room: 2A Gender: F Dress Finisher: TATO : 1955 Requested By: Cecilia Velasquez Order Number: [id number] Reading MD: Laisha Shepherd Measurements Intervals [place] Rate: 71 P: 68 RI: 192 QRS: 59 QRSD: 99 T: 55 QT: 417 QTc: 439 Interpretive Statements SINUS RHYTHM Electronically Signed On 11-16-2017 19:38:39 EST by Laisha Shepherd
[2017-11-17] MEDS: *HR* Promethazine 25 MG/ML VIAL IVP PRN ×3 (01:35→16:47)
[2017-11-17] MEDS: Ipratropium/Albuterol Neb 3 ML IH SCH ×4 (03:50→21:21)
[2017-11-17 04:37] LABS: Basophils % 0.2 %; Eosinophils % 0.1 %; Hematocrit 33.4 % (35.3-44.9); Hemoglobin 10.6 g/dL (11.5-15.4); Immature Granulocytes % 0.4 % (0-4); Lymphocytes # 1.4 K/mcL (0.6-4.6); Lymphocytes % 12.2 %; Mean Corpuscular HGB Conc 31.7 g/dL (31.6-35.5); Mean Corpuscular Hemoglobin 26.7 pg (28.0-33.3); Mean Corpuscular Volume 84.1 fL (83.0-100.0); Mean Platelet Volume 10.5 fL (9.4-12.4); Monocytes # 0.9 K/mcL (0.0-1.3); Platelet Count 149 K/mcL (140-400); Red Blood Count 3.97 M/mcL (3.82-4.97); Red Cell Distribution Width 17.9 % (11.5-14.5); Segmented Neutrophils % 79.1 %
[2017-11-17 04:59] LABS: Calcium 8.8 mg/dL (8.6-10.3); Magnesium 2.2 mg/dL (1.6-2.6); Potassium 4.3 mEq/L (3.5-5.1)
[2017-11-17] MEDS: *HR* OxyCODONE ER (12 HR) 20 MG TABLET PO SCH ×2 (05:49→16:47)
[2017-11-17] MEDS: *HR* Heparin 5,000 UNIT/ML VIAL SQ SCH ×3 (05:49→22:32)
[2017-11-17] MEDS ORDERED: Regadenoson 0.4 MG/5 ML SYRINGE IVP ONE (06:10)
[2017-11-17] MEDS ORDERED: 0.9 % Sodium Chloride 250 ML IVC PRN (07:48)
[2017-11-17] MEDS ORDERED: 0.9 % Sodium Chloride 1,000 ML PRIME SCH (08:00)
--- NOTE | 2017-11-17 08:39 | Infectious Disease Progress No ---
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 On admission of 10/18/17 patient was treated with ertapenem for ESBL Escherichia coli. On 10/24/17 patient was again treated with ertapenem and then discharged with meropenem which she completed 11/02/17 CT abdomen/pelvis on 10/18/17 showed right perinephric stranding and right [place] nephrosis: Patient has planned diagnostic ureteroscopy. Patient has a Hawkins catheter in place since admission on 10/18/17 During this admission for chest pain/shortness of breath patient complained of dysuria. Also before admission she had symptoms of bladder spasm and was prescribed oxybutinin hx of nephrolithiasis Urine culture grew MDR Escherichia coli, urinalysis was dirty catch. Likely colonization Patient White blood cell count increased to 11.4. She does not have any other SIRS criteria. denies urinary symptoms we will continue to monitor for signs of infection: no treatment for now, we will just observe, if symptoms of UTI recur, will treat with oral options (2) Influenza A Current Visit: Yes Status: Acute Influenza A + completed oseltamavir course continue supportive care. (3) COPD exacerbation Current Visit: Yes Status: Acute as per primary (4) Sacral decubitus ulcer, stage II Current Visit: Yes Status: Acute Turn Q2h dressed with minimal discharge (5) CHF (congestive heart failure) Current Visit: Yes Status: Chronic as per primary Qualifiers: Congestive heart failure type: diastolic Congestive heart failure chronicity: chronic Qualified Code(s): I50.32 - Chronic diastolic (congestive ) heart failure (6) Diabetes Current Visit: Yes Status: Chronic uncontrolled insulin dependent patient needs better control as glycosuria is a risk factor for recurrent UTIs. as per primary Qualifiers: Diabetes mellitus type: type 2 Diabetes mellitus complication status: with hyperglycemia Diabetes mellitus alf insulin use: with rat exterminator use Qualified Code(s): E11.65 - Type 2 diabetes mellitus with hyperglycemia; Z79.4 - predatory animal exterminator (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 of insulin (7) ESRD (end stage renal disease) on dialysis Current Visit: Yes Status: Chronic - Subjective Interval history: Patient reports she feels terrible this morning. Before she is very sleepy. Yesterday patient had substernal chest pain which was relieved by sublingual nitroglycerin. Cardiology was consulted and patient will undergo nuclear stress test this morning. Patient has been afebrile overnight. She continues to deny any urinary symptoms. Patient has a nonproductive cough. She denies nausea vomiting diarrhea. According to nurse patient's left AV fistula is not working and she will undergo a fistulogram today. Infect Dis PN-Objective Data - Labs CBC & Chem 7: 11/17/17 04:26 11/17/17 04:26 Labs: Laboratory Results - last 24 hr 11/15/17 11/16/17 11/16/17 21:39 06:57 09:29 WBC RBC Hgb Hct MCV MCH MCHC RDW Plt Count MPV Immature Gran % Seg Neutrophils % Lymphocytes % Monocytes % Eosinophils % Basophils % Neutrophils # Lymphocytes # Monocytes # Eosinophils # Basophils # Sodium Potassium Chloride Carbon Dioxide BUN Creatinine Est GFR ( Amer) Est GFR (Non-Af Amer) BUN/Creatinine Ratio Glucose POC Glucose 116 H 201 H Calculated Osmolality Calcium Phosphorus Magnesium Troponin I < 0.03 11/16/17 11/16/17 11/16/17 10:32 14:50 15:29 WBC RBC Hgb Hct MCV MCH MCHC RDW Plt Count MPV Immature Gran % Seg Neutrophils % Lymphocytes % Monocytes % Eosinophils % Basophils % Neutrophils # Lymphocytes # Monocytes # Eosinophils # Basophils # Sodium Potassium Chloride Carbon Dioxide BUN Creatinine Est GFR ( Amer) Est GFR (Non-Af Amer) BUN/Creatinine Ratio Glucose POC Glucose 169 H 111 H Calculated Osmolality Calcium Phosphorus Magnesium Troponin I < 0.03 11/17/17 11/17/17 04:26 04:26 WBC 11.4 H D RBC 3.97 Hgb 10.6 L Hct 33.4 L MCV 84.1 MCH 26.7 L MCHC 31.7 RDW 17.9 H Plt Count 149 MPV 10.5 Immature Gran % 0.4 Seg Neutrophils % 79.1 Lymphocytes % 12.2 Monocytes % 8.0 Eosinophils % 0.1 Basophils % 0.2 Neutrophils # 9.0 H Lymphocytes # 1.4 Monocytes # 0.9 Eosinophils # 0.0 Basophils # 0.0 Sodium 127 L Potassium 4.3 Chloride 89 L Carbon Dioxide 28 BUN 74 H Creatinine 2.60 H Est GFR ( Amer) 23 L Est GFR (Non-Af Amer) 19 L BUN/Creatinine Ratio 28 H Glucose 126 H POC Glucose Calculated Osmolality 287 Calcium 8.8 Phosphorus 5.0 H Magnesium 2.2 Troponin I Cultures: Cultures 11/12/17 Unknown Urine Culture - Final Urine,Clean Catch Escherichia coli MDRO Serology 11/13/17 11/12/17 Range/Units 00:30 18:21 Urine Color Yellow (Yellow) Urine Clarity Turbid A (Clear) Urine pH 5.5 (5.0-8.0) pH Units Ur Specific [place] 1.022 (1.010-1.025) Urine Protein 100 H (Neg-Trace) mg/dL Urine Glucose (UA) Normal (Normal) mg/dL Urine Ketones Negative (Negative) mg/dL Urine Blood Large H (Negative) Urine Nitrite Negative (Negative) Urine Bilirubin Small H (Negative) Urine Urobilinogen Normal (Normal) mg/dL Ur Leukocyte Esterase Large H (Negative) Urine Microscopic RBC Present (0-3) per hpf Urine Microscopic WBC TNTC H (0-3) per hpf Ur Squamous Epith Cells Many H (None-Few) per lpf Urine Bacteria Many H (None-Few) per hpf Hyaline Casts Test Not Performed Urine Yeast Present H (None Seen) per hpf Ur Culture Indicated? NO. (NO) Chlamy pneumoniae PCR Not Detected (Not Detect) Adenovirus (PCR) Not Detected (Not Detect) B. pertussis DNA (PCR) Not Detected (Not Detect) B.parapertussis DNA PCR Not Detected (Not Detect) Coronavirus OC43 (PCR) Not Detected (Not Detect) Coronavirus HKU1 (PCR) Not Detected (Not Detect) Coronavirus 229E (PCR) Not Detected (Not Detect) Coronavirus NL63 (PCR) Not Detected (Not Detect) Human Metapneumovir PCR Not Detected (Not Detect) Influenza A (H1) PCR Not Detected (Not Detect) Influ A (H1N1/09) PCR Not Detected (Not Detect) Influenza A (H3) PCR DETECTED A (Not Detect) Influenza A Untype (PCR) Not Detected (Not Detect) Influenza Type B (PCR) Not Detected (Not Detect) M.pneumoniae DNA (PCR) Not Detected (Not Detect) Parainfluenza 1 (PCR) Not Detected (Not Detect) Parainfluenza 2 (PCR) Not Detected (Not Detect) Parainfluenza 3 (PCR) Not Detected (Not Detect) Parainfluenza 4 (PCR) Not Detected (Not Detect) RSV (PCR) Not Detected (Not Detect) Entero/Rhino (PCR) Not Detected (Not Detect) Exam - Constitutional Vitals: Temp Pulse Resp BP Pulse Ox 98.0 F 82 16 153/77 93 11/17/17 08:04 11/17/17 08:04 11/17/17 08:04 11/17/17 08:04 11/17/17 08:04 - Additional findings Additional findings: General: Appears in mild distress, weak Heart: Regular rate and rhythm with no murmur Lungs:clear b/l Abdomen: Soft nontender, nondistended positive bowel sounds. Skin: warm and dry, stage II sacral decubitus ulcer, right heel wound dressed Extremities: Nonpitting pedal edema Neuro: Alert and oriented 3 Vascular: Pedal and radial pulses 2 out of 4 Line: Left AV fistula. Consult Discharge Plan - Plan Referrals: Tristen Quintana MD [Primary Care Provider] - 11/23/17 1:45 pm (please follow up as schedule...) - Attending Attestation I examined this patient and my medical decision-making was reviewed with the Resident Physician. I agree with the documented findings, disposition and treatment plan as described except to the extent set forth below.
[2017-11-17] MEDS: Insulin LISPRO 300 UNITS/3 ML VIAL SQ SCH ×7 (08:52→22:31)
[2017-11-17] MEDS: metOLazone 2.5 MG TABLET PO SCH (08:59)
[2017-11-17] MEDS: Calcium Acetate 667 MG CAPSULE PO SCH ×3 (09:00→17:46)
[2017-11-17] MEDS: Aspirin Enteric Coated 81 MG Tablet PO SCH (09:00)
[2017-11-17] MEDS: ARIPiprazole 10 MG TABLET PO SCH (09:00)
[2017-11-17] MEDS: amLODIPine 5 MG TABLET PO SCH (09:01)
[2017-11-17] MEDS: Sennosides 8.6 MG TABLET PO SCH ×2 (09:01→22:31)
[2017-11-17] MEDS: GuaiFENesin/Dextromethorphan TABLET PO SCH ×2 (09:01→22:31)
[2017-11-17] MEDS: Isosorbide MONOnitrate (24 HR) 30 MG TAB.ER.24H PO SCH (09:01)
[2017-11-17] MEDS: Gabapentin 100 MG CAPSULE PO SCH ×3 (09:01→22:30)
[2017-11-17] MEDS: Insulin DETEMIR 100 UNIT/ML X5UNITS SQ SCH ×2 (09:01→22:40)
[2017-11-17] MEDS: Cholecalciferol (D-3) 1,000 UNIT TABLET PO SCH (09:01)
[2017-11-17] MEDS: Renal Vitamin 1 MG CAPSULE PO SCH (09:01)
[2017-11-17] MEDS: Budesonide/Formoterol 160/4.5 MDI IH SCH ×2 (10:12→21:21)
[2017-11-17] MEDS ORDERED: *HR* Midazolam HCl 2 MG/2 ML VIAL IVP ONE (11:06)
[2017-11-17] MEDS ORDERED: *HR* FentaNYL (PF) 100 MCG/2 ML VIAL IVP ONE (11:07)
[2017-11-17] MEDS ORDERED: Heparin 1,000 UNITS/500 mL 500 ML ONE (11:09)
[2017-11-17] MEDS ORDERED: 0.9 % Sodium Chloride 500 ML ONE (11:09)
--- NOTE | 2017-11-17 11:22 | Cardiology Consult Note ---
Date of Encounter: 11/17/17 Time of Encounter: 11:20 Assessment and Plan (1) Chest pain Current Visit: No Status: Acute Patient with extensive cardiac history including multiple stents and CABG. Patient's last LHC 10/27: patent SVG-RCA; otherwise moderate, non-obstructive CAD Regadenoson nuclear 09/06/16: perfusion imaging negative for ischemia or infarct. Troponin neagtive x3 on admission and negative times 2 yesterday. TTE 11/12/17 shwoed preserved LVEF and normal wall motion. intially recommended conservative treatment with Imdur. Patient still having persistent chest pressure that sounds anginal in nature. patient tells a good story of chest pressure radiating to the back and arm with SOB and nausea that feels the same as her prior [place]. In light of persistent anginal chest pain believe it would prudent to perform a stress test on patient. Hold Imdur and schedule Nuclear Stress test to be completed tomorrow. Qualifiers: Chest pain type: unspecified Qualified Code(s): R07.9 - Chest pain, unspecified Discussion w patient/family: The assessment and plan as outlined above was discussed with the patient and/or family members who expressed understanding and agreement. All questions were answered. Thank you for involving us in the care of your patient. Please call with any questions. History of Present Illness Consult date: 11/17/17 Requesting physician: Cecilia Velasquez Consult reason: Chest Pain Chief complaint: Chest Pain History of present illness: Ms. Riley is a 62 year old female c PMHx of CAD s/p Stent x5, double CABG, hx of CHF, a fib, HTN, HLD, PAD, ESRD, anxiety, depression schizophrenia, DVT, CVA , COPD who reported to the [facility] for Chest Pain and SOB onset earlier the day of admission that radiated to the L arm, neck and back. Initial troponins were negative and ECHO on 11/12 showed preserved EF and no wall motion abnormalities. Despite these reassuring works up patient has had persistent chest pain since admission. She had an episode yesterday and again this morning that she describes as L sided chest pressure radiating to the back and to her left arm. She reports associated SOB and nausea. She reports that the pressure is relieved with NG and that this feels like the same pain she had when she had her previous WA. Patient's last LHC was October of 2016 which showed patent SVG- RCA; otherwise moderate, non obstructive CAD. Patient's last Nuclear stress test was 09/06/16 and showed perfusion imaging negative for ischemia or infarct. After her chest pain yesterday troponin's were repeated awhich were negative and EKG at that time showed no ST changes or signs of new ischemia. Rebecca reports that she believes she was on imdur in the past and that it helped with her angina. She is not sure if the two doses she has gotten so far since admission have helped or not. Past Med Surg Social Fam HX - Past Medical History Medical history: arthritis, asthma, atrial fibrillation, CHF, COPD, coronary artery disease, CVA, DVT, diabetes, dialysis, fibromyalgia, GERD, GI bleed, hyperlipidemia, hypertension, kidney stones, migraine, myocardial infarction, osteoporosis, peripheral artery disease, renal disease, other Psychiatric history: anxiety, depression, schizophrenia, previous psychiatric hospitalization, other - Past Surgical History Surgical History: angioplasty/stent (x5), appendectomy, cholecystectomy, coronary bypass (CABG) (Double), hysterectomy, knee replacement, other, IVC filter - Social History Smoking Status: Current every day smoker Packs per day: 1 PPD Smokeless Tobacco Status: No Alcohol use: none Drug use: none - Family History Father Race: Family Member Ethnicity: Non- Living Status: Age at : 53 Cause of : Polycythemia Hx Family Cardiac Disorders: Yes (CAD, [place]) Hx Family Cancer: Yes (Polycythemia) Hx Family Endocrine Disorder: Yes (DM) Mother Race: Family Member Ethnicity: Non- Living Status: Still Living Hx Family Respiratory Disorders: Yes (End stage COPD) Brother Race: Family Member Ethnicity: Non- Living Status: Still Living Hx Family Medical Disorders: No Sister Race: Family Member Ethnicity: Non- Living Status: Still Living Hx Family Cardiac Disorders: Yes (CAD) Hx Family GI Disorders: Yes (Gastric bypass) Hx Family Endocrine Disorder: Yes (Thyroid disease) Hx Family Musculoskeletal Disorders: Yes (Arthritis) Medications and Allergies Clopidogrel [Plavix] 75 mg PO DAILY 05/11/15 [History] Omeprazole [PriLOSEC] 20 mg PO BID 05/11/15 [History] Colestipol HCl [Colestid] 1 gm PO BID 06/12/15 [History] Carvedilol 12.5 mg PO BID 10/28/15 [History] Calcium Acetate [Phos-LO] 1,334 mg PO TIDWM 09/06/16 [History] Folic Acid/Vit Bcomp,C [Renal Vitamin Tablet] 0.8 mg PO DAILY 04/15/17 [History] ARIPiprazole [Abilify] 10 mg PO DAILY 09/13/17 [History] Amitriptyline HCl 100 mg PO HS 09/13/17 [History] Aspirin Enteric Coated [Aspirin EC] 81 mg PO DAILY 09/13/17 [History] Budesonide/Formoterol 160/4.5 [Symbicort 160/4.5] 2 puff IH BIDR 09/13/17 [ History] Cholecalciferol (Vitamin D3) [Vitamin D3] 50,000 unit PO TH 09/13/17 [History] Insulin LISPRO [HumaLOG] 20 units SQ TIDAC 09/13/17 [History] Lidocaine/Prilocaine CREAM [Emla] 1 appl TP AD PRN 09/13/17 [History] OxyCODONE ER (12 HR) [OxyCONTIN] 20 mg PO Q12HR 09/13/17 [History] OxyCODONE/APAP 10/325 [Percocet 10/325 MG] 1 tab PO Q6H PRN 09/13/17 [History] Oxygen 2 l NS AD 09/13/17 [History] Sennosides [Senna] 8.6 mg PO BID 09/13/17 [History] Sevelamer [Renvela] 800 mg PO TIDWM 09/13/17 [History] Albuterol Neb [AccuNeb] 0.63 mg IH Q6H PRN 10/18/17 [History] Gabapentin [Neurontin] 100 mg PO TID #60 capsule 10/21/17 [Rx] Insulin Glargine,Hum.rec.anlog [Lantus Solostar] 45 unit SQ BID #0 10/21/17 [Rx] Rosuvastatin [Crestor] 10 mg PO HS #15 tablet 10/21/17 [Rx] Docusate Sodium [Colace] 100 mg PO BID #60 capsule 10/26/17 [Rx] amLODIPine [Norvasc] 5 mg PO DAILY 10/26/17 [History] metOLazone [Zaroxolyn] 1 tab PO DAILY 10/26/17 [History] Collagenase Oint [Santyl] 1 appl TP AD 11/11/17 [History] Oxybutynin [Ditropan] 5 mg PO TID 11/11/17 [History] 3 Allergy/AdvReac Type Severity Reaction Status Date / Time No Known Allergies Allergy Verified 11/11/17 11:44 All Systems Review: A 10-system review of systems was performed and is negative for pertinent findings except as documented above in the HPI. Physical Examination Vital Signs, Last 4 Hours Temp Pulse Resp BP Pulse Ox 11/17/17 10:47 98.7 F 80 17 149/75 96 11/17/17 10:14 18 95 11/17/17 08:04 98.0 F 82 16 153/77 93 General: Conversant, No Apparent Distress HEENT: Atraumatic, Normocephaly, Mucus Membranes Moist Neck: No JVD Cardiac: Reg Rate and Rhythm, Normal S1 and S2, No Murmur Lungs: Normal Breath Sounds, No Wheeze, Rales, Rhonchi Neuro: Alert and responsive, No focal deficits noted Abdomen: Soft, Non-Tender Skin: No rashes noted on visualized skin Musculoskeletal: No Chest Wall Tenderness Extremities: No Clubbing, No Cyanosis, No Edema, Normal Pulses Results 11/17/17 04:26 11/17/17 04:26 Lab Results 11/16/17 11/17/17 11/17/17 14:50 04:26 04:26 WBC 11.4 H D Hgb 10.6 L Hct 33.4 L Plt Count 149 Sodium 127 L Potassium 4.3 Chloride 89 L Carbon Dioxide 28 BUN 74 H Creatinine 2.60 H Glucose 126 H Calcium 8.8 Magnesium 2.2 Troponin I < 0.03 Consult Discharge Plan - Plan Referrals: Tristen Quintana MD [Primary Care Provider] - 11/23/17 1:45 pm (please follow up as schedule...)
[2017-11-17] MEDS ORDERED: CeFAZolin Premix DUPLEX 2,000 MG/50 ML BAG IVPB ONE (11:39)
[2017-11-17] MEDS ORDERED: *HR* Heparin 5,000 UNIT/ML VIAL ONE (11:59)
--- NOTE | 2017-11-17 12:56 | IR Procedure Note ---
Date of procedure: 11/17/17 Consent Obtained: Verbal consent Timeout: Correct patient and procedure verified, Correct site verified, Time out performed, Skin prep completed Local anesthetic: Lidocaine 1% Indications: ESRD with occluded graft Procedure Performed: Thrombectomy Was there an career services assistant present: No Results/Findings: Successful declot, RAILCAR SWITCHER venous stetn 6mm, thrill restored Estimated blood loss (cc): 10 Complications: None; Tolerated procedure well Post Procedure Treatment Plan: Monitor on floor Specimen: None
--- NOTE | 2017-11-17 14:12 | Internal Med Progress Note ---
Date of Encounter: 11/17/17 Time of Encounter: 14:10 - Subjective Interval history: Patient seen and examined at bedside. Resting in bed, s/p fistulagram today. Denies any chest pain Unable to undergo stress test today as she had the morning dose of Imdur. Cardiology on board, will hold Imdur and schedule for stress test in am Assessment/Plan: 1. COPD exacerbation/Influenza continue systemic steroids (pt finished 5 days of Prednisone) Respiratory status back to baseline bronchodilator support monitor O2 saturation, goal O2 sat: 88-92% continue Tamiflu 2. Chest pain will obtain serial TNI nuclear stress test in am (imdur on hold) cardiology evaluation requested 3. ESRD On HD Nephrology on board and consultation appreciated continue HD on MWF 4. Hyponatremia Chronic clinically asymptomatic will continue to closely monitor 5. DM sliding scale insulin algorithm monitor FS and BG ADA diet 6. CHF Not in acute exacerbation continue home meds 2D echo noted 7. HTN Noted to remain hypertensive will increase home dose of Amlodpine to 10mg PO qd will continue to closely monitor BP 8. Sacral Decubitus chronic continue wound care frequent turning 9. DVT ppx heparin SQ 10. UTI urine culture positive for E.Coli MDRO ID evaluation appreciated will monitor Off abx at this time - Constitutional Vitals: Temp Pulse Resp BP Pulse Ox 98.7 F 78 16 157/71 100 11/17/17 10:47 11/17/17 12:37 11/17/17 12:37 11/17/17 12:37 11/17/17 12:37 General appearance: Present: cooperative, A&O X 3, pleasant, no acute distress, obese, answers questions appropriately - Head Head exam: Present: atraumatic, normocephalic - Eye Eye exam: Present: conjuntiva pink, sclera anicteric - Cardiovascular Cardiovascular exam: Present: RRR, +S1, +S2. Absent: diastolic murmur, gallop, rubs, systolic murmur - GI/Abdominal GI/Abdominal exam: Present: normal bowel sounds, soft, no peritoneal signs. Absent: distended, tenderness - Extremities Exam Extremities exam: Present: warm (chronic venous stasis in b/l LE ), radial pulses palpable and symmetrical. Absent: calf tenderness - Neurological Exam Neurological exam: Present: alert, oriented X3 - Psychiatric Psychiatric exam: Present: normal affect, normal mood Internal Medicine: Result - Labs CBC & Chem 7: 11/17/17 04:26 11/17/17 04:26 Labs: Short CBC 11/17/17 Range/Units 04:26 WBC 11.4 H D (4.3-11.1) K/mcL Hgb 10.6 L (11.5-15.4) g/dL Hct 33.4 L (35.3-44.9) % Plt Count 149 (140-400) K/mcL Neutrophils # 9.0 H (1.6-8.9) K/mcL BMP 11/17/17 04:26 Sodium 127 L Potassium 4.3 Chloride 89 L Carbon Dioxide 28 BUN 74 H Creatinine 2.60 H Glucose 126 H Calcium 8.8 Cardiac Enzymes 11/16/17 Range/Units 14:50 Troponin I < 0.03 (< 0.04) ng/mL - ABG Interpretation ABG results: PT/INR, D-dimer PT 10.6 Seconds (9.4-12.1) 11/11/17 11:59 D-Dimer 855 ng/mLFEU (0-500) H 11/11/17 16:22 Consult Discharge Plan - Plan Referrals: Tristen Quintana MD [Primary Care Provider] - 11/23/17 1:45 pm (please follow up as schedule...)
[2017-11-18 03:31] LABS: Basophils % 0.2 %; Eosinophils # 0.1 K/mcL (0.0-0.6); Eosinophils % 0.9 %; Hematocrit 32.3 % (35.3-44.9); Hemoglobin 10.5 g/dL (11.5-15.4); Immature Granulocytes % 0.5 % (0-4); Immature Platelets 4.7 % (1.1-6.1); Lymphocytes # 1.4 K/mcL (0.6-4.6); Lymphocytes % 11.7 %; Mean Corpuscular HGB Conc 32.5 g/dL (31.6-35.5); Mean Corpuscular Hemoglobin 27.3 pg (28.0-33.3); Mean Corpuscular Volume 83.9 fL (83.0-100.0); Mean Platelet Volume 10.2 fL (9.4-12.4); Monocytes % 7.9 %; Neutrophils # 9.7 K/mcL (1.6-8.9); Platelet Count 153 K/mcL (140-400); Red Blood Count 3.85 M/mcL (3.82-4.97); Red Cell Distribution Width 17.4 % (11.5-14.5); Segmented Neutrophils % 78.8 %
[2017-11-18] MEDS: Ipratropium/Albuterol Neb 3 ML IH SCH ×4 (03:37→23:05)
[2017-11-18 03:53] LABS: Calcium 8.4 mg/dL (8.6-10.3); Potassium 4.6 mEq/L (3.5-5.1)
[2017-11-18] MEDS: *HR* Heparin 5,000 UNIT/ML VIAL SQ SCH ×3 (07:09→23:03)
[2017-11-18] MEDS ORDERED: 0.9 % Sodium Chloride 250 ML IVC PRN (07:20)
[2017-11-18] MEDS ORDERED: 0.9 % Sodium Chloride 1,000 ML PRIME SCH (07:30)
[2017-11-18] MEDS: Insulin LISPRO 300 UNITS/3 ML VIAL SQ SCH ×6 (08:20→19:58)
--- NOTE | 2017-11-18 09:17 | Infectious Disease Progress No ---
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 On admission of 10/18/17 patient was treated with ertapenem for ESBL Escherichia coli. On 10/24/17 patient was again treated with ertapenem and then discharged with meropenem which she completed 11/02/17 CT abdomen/pelvis on 10/18/17 showed right perinephric stranding and right [place] nephrosis: Patient has planned diagnostic ureteroscopy. Patient has a Hawkins catheter in place since admission on 10/18/17 During this admission for chest pain/shortness of breath patient complained of dysuria. Also before admission she had symptoms of bladder spasm and was prescribed oxybutinin hx of nephrolithiasis Urine culture grew MDR Escherichia coli, urinalysis was dirty catch. Likely colonization Patient White blood cell count 12.3 today. She does not have any other SIRS criteria. denies urinary symptoms Continue to observe. No antibiotics indicated at this point. (2) Influenza A Current Visit: Yes Status: Acute Influenza A + completed oseltamavir course continue supportive care. (3) COPD exacerbation Current Visit: Yes Status: Acute as per primary (4) Sacral decubitus ulcer, stage II Current Visit: Yes Status: Acute Turn Q2h dressed with minimal discharge (5) CHF (congestive heart failure) Current Visit: Yes Status: Chronic as per primary Qualifiers: Congestive heart failure type: diastolic Congestive heart failure chronicity: chronic Qualified Code(s): I50.32 - Chronic diastolic (congestive ) heart failure (6) Diabetes Current Visit: Yes Status: Chronic uncontrolled insulin dependent patient needs better control as glycosuria is a risk factor for recurrent UTIs. as per primary Qualifiers: Diabetes mellitus type: type 2 Diabetes mellitus complication status: with hyperglycemia Diabetes mellitus penitentiary insulin use: with termite technician use Qualified Code(s): E11.65 - Type 2 diabetes mellitus with hyperglycemia; Z79.4 - superintendent terminal (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 of insulin (7) ESRD (end stage renal disease) on dialysis Current Visit: Yes Status: Chronic - Subjective Interval history: Patient was hypoglycemic this morning, less responsive requiring emergent interstitial dexterous. She also was found to have a clot in her left AV fistula underwent thrombectomy, and now on dialysis. Patient was responding to my questions, but seems somewhat. She denied headache, chills, sputum production, abdominal pain, nausea vomiting diarrhea, dysuria. Infect Dis PN-Objective Data - Labs CBC & Chem 7: 11/18/17 03:22 11/18/17 03:22 Labs: Laboratory Results - last 24 hr 11/17/17 11/17/17 11/17/17 08:01 10:45 16:24 WBC RBC Hgb Hct MCV MCH MCHC RDW Plt Count MPV Immature Gran % Seg Neutrophils % Lymphocytes % Monocytes % Eosinophils % Basophils % Neutrophils # Lymphocytes # Monocytes # Eosinophils # Basophils # Immature Plt Fraction Sodium Potassium Chloride Carbon Dioxide BUN Creatinine Est GFR ( Amer) Est GFR (Non-Af Amer) BUN/Creatinine Ratio Glucose POC Glucose 175 H 212 H 160 H Calculated Osmolality Calcium 11/18/17 11/18/17 03:22 03:22 WBC 12.3 H RBC 3.85 Hgb 10.5 L Hct 32.3 L MCV 83.9 MCH 27.3 L MCHC 32.5 RDW 17.4 H Plt Count 153 MPV 10.2 Immature Gran % 0.5 Seg Neutrophils % 78.8 Lymphocytes % 11.7 Monocytes % 7.9 Eosinophils % 0.9 Basophils % 0.2 Neutrophils # 9.7 H Lymphocytes # 1.4 Monocytes # 1.0 Eosinophils # 0.1 Basophils # 0.0 Immature Plt Fraction 4.7 Sodium 127 L Potassium 4.6 Chloride 92 L Carbon Dioxide 25 BUN 91 H Creatinine 3.30 H Est GFR ( Amer) 17 L Est GFR (Non-Af Amer) 14 L BUN/Creatinine Ratio 28 H Glucose 54 L POC Glucose Calculated Osmolality 290 Calcium 8.4 L Cultures: Cultures 11/12/17 Unknown Urine Culture - Final Urine,Clean Catch Escherichia coli MDRO Serology 11/13/17 11/12/17 Range/Units 00:30 18:21 Urine Color Yellow (Yellow) Urine Clarity Turbid A (Clear) Urine pH 5.5 (5.0-8.0) pH Units Ur Specific [place] 1.022 (1.010-1.025) Urine Protein 100 H (Neg-Trace) mg/dL Urine Glucose (UA) Normal (Normal) mg/dL Urine Ketones Negative (Negative) mg/dL Urine Blood Large H (Negative) Urine Nitrite Negative (Negative) Urine Bilirubin Small H (Negative) Urine Urobilinogen Normal (Normal) mg/dL Ur Leukocyte Esterase Large H (Negative) Urine Microscopic RBC Present (0-3) per hpf Urine Microscopic WBC TNTC H (0-3) per hpf Ur Squamous Epith Cells Many H (None-Few) per lpf Urine Bacteria Many H (None-Few) per hpf Hyaline Casts Test Not Performed Urine Yeast Present H (None Seen) per hpf Ur Culture Indicated? NO. (NO) Chlamy pneumoniae PCR Not Detected (Not Detect) Adenovirus (PCR) Not Detected (Not Detect) B. pertussis DNA (PCR) Not Detected (Not Detect) B.parapertussis DNA PCR Not Detected (Not Detect) Coronavirus OC43 (PCR) Not Detected (Not Detect) Coronavirus HKU1 (PCR) Not Detected (Not Detect) Coronavirus 229E (PCR) Not Detected (Not Detect) Coronavirus NL63 (PCR) Not Detected (Not Detect) Human Metapneumovir PCR Not Detected (Not Detect) Influenza A (H1) PCR Not Detected (Not Detect) Influ A (H1N1/09) PCR Not Detected (Not Detect) Influenza A (H3) PCR DETECTED A (Not Detect) Influenza A Untype (PCR) Not Detected (Not Detect) Influenza Type B (PCR) Not Detected (Not Detect) M.pneumoniae DNA (PCR) Not Detected (Not Detect) Parainfluenza 1 (PCR) Not Detected (Not Detect) Parainfluenza 2 (PCR) Not Detected (Not Detect) Parainfluenza 3 (PCR) Not Detected (Not Detect) Parainfluenza 4 (PCR) Not Detected (Not Detect) RSV (PCR) Not Detected (Not Detect) Entero/Rhino (PCR) Not Detected (Not Detect) - Impressions Impressions AV Shunt Angiogram 11/17/17 00:00 IMPRESSION: 1. Successful thrombectomy of the left upper extremity dialysis access. 2. Venous outflow stenosis angioplastied 6 mm with good angiographic result. 3. [employer] thrill. D/ / Rios Clay MD / Rios Clay MD Interpreting Provider: Rios Clay MD Shunt Angiogram 11/17/17 00:00 IMPRESSION: 1. Successful thrombectomy of the left upper extremity dialysis access. 2. Venous outflow stenosis angioplastied 6 mm with good angiographic result. 3. [employer] thrill. D/ / Rios Clay MD / Rios Clay MD Interpreting Provider: Rios Clay MD [employer]NAL BUSINESS DEVELOPMENT MANAGER, Venous 11/17/17 00:00 IMPRESSION: 1. Successful thrombectomy of the left upper extremity dialysis access. 2. Venous outflow stenosis angioplastied 6 mm with good angiographic result. 3. [employer] thrill. D/ / Rios Clay MD / Rios Clay MD Interpreting Provider: Rios Clay MD Exam - Constitutional Vitals: Temp Pulse Resp BP Pulse Ox 98.1 F 77 12 102/58 95 11/18/17 07:38 11/18/17 07:38 11/18/17 07:38 11/18/17 07:38 11/18/17 07:38 - Additional findings Additional findings: General: Appears in mild distress, weak, somnolent Heart: Regular rate and rhythm with no murmur Lungs:clear b/l Abdomen: Soft nontender, nondistended positive bowel sounds. Skin: warm and dry, stage II sacral decubitus ulcer, right heel wound dressed Extremities: Nonpitting pedal edema Neuro: Alert and oriented 3 Vascular: Pedal and radial pulses 2 out of 4 Line: Left AV fistula. Consult Discharge Plan - Plan Referrals: Tristen Quintana MD [Primary Care Provider] - 11/23/17 1:45 pm (please follow up as schedule...) - Attending Attestation I examined this patient and my medical decision-making was reviewed with the Resident Physician. I agree with the documented findings, disposition and treatment plan as described except to the extent set forth below.
--- NOTE | 2017-11-18 09:43 | Nephrology Progress Note ---
Date of Encounter: 11/18/17 Time of Encounter: 09:41 - Assessment and Plan (1) ESRD (end stage renal disease) on dialysis Current Visit: Yes Status: Chronic Plan for HD today S/P fistulogram yesterday; was unable to get HD yesterday d/t prolonged bleeding after fistulogram. Access rested yesterday Continue renal diet Continue strict I/Os Avoid nephrotoxins (2) DM2 (diabetes mellitus, type 2) Current Visit: No Status: Chronic per primary team Qualifiers: Diabetes mellitus complication status: with kidney complications Diabetes mellitus complication detail: with chronic kidney disease Diabetes mellitus manager terminal insulin use: with manager terminal use Chronic kidney disease stage: on chronic dialysis Qualified Code(s): E11.22 - Type 2 diabetes mellitus with diabetic chronic kidney disease; N18.6 - End stage renal disease; Z79.4 - halfway (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 of insulin; Z99.2 - Dependence on renal dialysis (3) Diastolic dysfunction with chronic heart failure Current Visit: No Status: Chronic per primary team Has stress test ordered today Subjective Principal diagnosis: ESRD Interval history: Patient seen and examined. Resting quietly in bed, c/o chest pain Objective - Vital Signs Vital signs: Vital Signs Temp Pulse Resp BP Pulse Ox 11/18/17 07:38 98.1 F 77 12 102/58 95 11/18/17 04:08 98.1 F 81 18 129/59 96 11/18/17 03:37 16 96 11/17/17 23:42 98.0 F 82 16 133/65 95 11/17/17 21:22 18 97 11/17/17 20:00 98.7 F 80 16 132/75 97 11/17/17 16:25 97.9 F 78 17 137/69 96 11/17/17 15:38 18 96 11/17/17 12:37 78 16 157/71 100 11/17/17 12:33 78 16 152/69 100 11/17/17 12:28 79 16 152/69 100 11/17/17 12:25 78 16 155/74 100 11/17/17 12:20 86 16 151/68 100 11/17/17 12:14 77 16 131/62 100 11/17/17 12:10 76 16 157/71 100 11/17/17 12:04 78 16 158/75 100 11/17/17 10:47 98.7 F 80 17 149/75 96 11/17/17 10:14 18 95 Intake and Output 11/17/17 11/18/17 11/18/17 23:59 07:59 15:59 Other: # Voids 1 Weight 107.774 kg Blood Glucose* 137 138 Patient Weight 11/18/17 23:59 Weight 107.774 kg - General Appearance General appearance: Present: obese EENT: Present: ATNC, mucous membranes moist, hearing intact, vision intact Neck: Present: supple Respiratory: Present: clear Cardiology: Present: edema, normal S1, normal S2 Dialysis Vascular Access: Arteriovenous Fistula Gastrointestinal: Present: no tenderness, no guarding Integumentary: Present: warm and dry Neurologic: Present: alert and oriented x3 Psychiatric: Present: mood/affect appropriate, cooperative - Lab 11/18/17 03:22 11/18/17 03:22 Most recent lab results Calcium 8.4 mg/dL (8.6-10.3) L 11/18/17 03:22 Phosphorus 5.0 mg/dL (2.7-4.5) H 11/17/17 04:26 Magnesium 2.2 mg/dL (1.6-2.6) 11/17/17 04:26 Consult Discharge Plan - Plan Referrals: Tristen Quintana MD [Primary Care Provider] - 11/23/17 1:45 pm (please follow up as schedule...)
[2017-11-18] MEDS: *HR* OxyCODONE ER (12 HR) 20 MG TABLET PO SCH ×3 (09:44→18:46)
[2017-11-18] MEDS: Insulin DETEMIR 100 UNIT/ML X5UNITS SQ SCH ×2 (09:44→19:59)
[2017-11-18] MEDS: Calcium Acetate 667 MG CAPSULE PO SCH ×4 (09:44→16:37)
[2017-11-18] MEDS: Gabapentin 100 MG CAPSULE PO SCH ×4 (09:45→19:59)
[2017-11-18] MEDS: amLODIPine 5 MG TABLET PO SCH (10:00)
[2017-11-18] MEDS: GuaiFENesin/Dextromethorphan TABLET PO SCH ×2 (10:00→19:59)
[2017-11-18] MEDS: Aspirin Enteric Coated 81 MG Tablet PO SCH (10:00)
[2017-11-18] MEDS: metOLazone 2.5 MG TABLET PO SCH (10:01)
[2017-11-18] MEDS: ARIPiprazole 10 MG TABLET PO SCH (10:02)
[2017-11-18] MEDS: Sennosides 8.6 MG TABLET PO SCH ×2 (10:02→19:59)
[2017-11-18] MEDS: Cholecalciferol (D-3) 1,000 UNIT TABLET PO SCH (10:02)
[2017-11-18] MEDS: Renal Vitamin 1 MG CAPSULE PO SCH (10:02)
[2017-11-18] MEDS: Budesonide/Formoterol 160/4.5 MDI IH SCH ×2 (10:19→23:06)
--- NOTE | 2017-11-18 10:24 | Cardiology Progress Note ---
Date of Encounter: 11/18/17 Time of Encounter: 10:24 Assessment and Plan (1) Chest pain Current Visit: No Status: Acute Patient with extensive cardiac history including multiple stents and CABG. Patient's last [facility] 10/27: patent SVG-RCA; otherwise moderate, non-obstructive CAD Regadenoson nuclear 09/06/16: perfusion imaging negative for ischemia or infarct. Troponin neagtive x3 on admission and negative times 2 yesterday. TTE 11/12/17 shwoed preserved LVEF and normal wall motion. initially recommended conservative treatment with Imdur. Patient still having persistent chest pressure that sounds anginal in nature. patient tells a good story of chest pressure radiating to the back and arm with SOB and nausea that feels the same as her prior OR. In light of persistent anginal chest pain believe it would prudent to perform a stress test on patient. Patient unable to get stress test today due to eating breakfast 2/2 hypoglycemia. continue to Hold Imdur for Nuclear Stress test to be completed tomorrow. Qualifiers: Chest pain type: unspecified Qualified Code(s): R07.9 - Chest pain, unspecified (2) Fall Current Visit: No Status: Acute Qualifiers: Encounter type: initial encounter Qualified Code(s): W19.XXXA - Unspecified fall, initial encounter (3) Atrial fibrillation Current Visit: No Status: Chronic Pt with History of a fib. currently not on anticoagulation secondary to hx of vaginal bleeding. patient is on ASA and Plavix. Will have further discussion about need for AC. Chadsvasc: 7 Qualifiers: Atrial fibrillation type: paroxysmal Qualified Code(s): I48.0 - Paroxysmal atrial fibrillation Discussion w patient/family: The assessment and plan as outlined above was discussed with the patient and/or family members who expressed understanding and agreement. All questions were answered. Thank you for involving us in the care of your patient. Please call with any questions. Subjective Principal diagnosis: ESRD Interval history: Patient was set to have stress test today. However patient was found to be hypoglycemic this morning to 32 and unresponsive. Patient was given dextrose and breakfast and was able to be aroused. Since patient had breakfast stress test will have to be postponed until tomorrow morning. Patient made NPO at midnight. patient in dialysis now. patient denies current chest pain. Objective Vital Signs, Last 4 Hours Temp Pulse Resp BP Pulse Ox 11/18/17 07:38 98.1 F 77 12 102/58 95 General: Conversant, No Apparent Distress, Other (sleepy but arousable. ) HEENT: Atraumatic, Normocephaly, Mucus Membranes Moist Neck: No JVD Cardiac: Reg Rate and Rhythm, Normal S1 and S2, No Murmur Lungs: Normal Breath Sounds, No Wheeze, Rales, Rhonchi Neuro: Alert and responsive, No focal deficits noted Abdomen: Soft, Non-Tender Skin: No rashes noted on visualized skin Musculoskeletal: No Chest Wall Tenderness Extremities: No Clubbing, No Cyanosis, Normal Pulses Results 11/18/17 03:22 11/18/17 03:22 Lab Results 11/18/17 11/18/17 03:22 03:22 WBC 12.3 H Hgb 10.5 L Hct 32.3 L Plt Count 153 Sodium 127 L Potassium 4.6 Chloride 92 L Carbon Dioxide 25 BUN 91 H Creatinine 3.30 H Glucose 54 L Calcium 8.4 L Consult Discharge Plan - Plan Referrals: Tristen Quintana MD [Primary Care Provider] - 11/23/17 1:45 pm (please follow up as schedule...)
[2017-11-18] MEDS ORDERED: 0.9 % Sodium Chloride 1,000 ML ONE (14:07)
--- NOTE | 2017-11-18 15:48 | Internal Med Progress Note ---
Date of Encounter: 11/18/17 Time of Encounter: 08:15 - Subjective Interval history: Patient seen and examined at bedside. Pt reported of being lethargic this morning and was found to have BG of 30 which improved after receiving 1amp of dextrose, repeat BG was 138. Unable to undergo stress test today as pt had PO intake due to hypoglycemic episode She continues to refuse ECF and is progressively getting weaker as she refuses to participate with physical therapy or get out of bed to chair s/p HD today (11/18/17) Assessment/Plan: 1. COPD exacerbation/Influenza continue systemic steroids (pt finished 5 days of Prednisone) Respiratory status back to baseline bronchodilator support monitor O2 saturation, goal O2 sat: 88-92% finished 5 days of Tamiflu 2. Chest pain nuclear stress test in am (imdur on hold) cardiology evaluation requested 3. ESRD On HD Nephrology on board and consultation appreciated continue HD on MWF 4. Hyponatremia Chronic clinically asymptomatic will continue to closely monitor 5. DM sliding scale insulin algorithm monitor FS and BG ADA diet decreased bedtime levemir dosing d/c humolog premeal 6. CHF Not in acute exacerbation continue home meds 2D echo noted 7. HTN Noted to remain hypertensive will increase home dose of Amlodpine to 10mg PO qd will continue to closely monitor BP 8. Sacral Decubitus chronic continue wound care frequent turning 9. DVT ppx heparin SQ 10. UTI urine culture positive for E.Coli MDRO ID evaluation appreciated will monitor Off abx at this time - Constitutional Vitals: Temp Pulse Resp BP Pulse Ox 97.7 F 75 18 110/82 95 11/18/17 14:15 11/18/17 14:15 11/18/17 14:15 11/18/17 14:15 11/18/17 14:15 General appearance: Present: cooperative, A&O X 3, pleasant, no acute distress, obese, answers questions appropriately - Head Head exam: Present: atraumatic, normocephalic - Eye Eye exam: Present: conjuntiva pink, sclera anicteric - Respiratory Respiratory exam: Absent: respiratory distress, wheezes - Cardiovascular Cardiovascular exam: Present: RRR, +S1, +S2 - GI/Abdominal GI/Abdominal exam: Present: normal bowel sounds, soft, no peritoneal signs. Absent: distended, tenderness - Extremities Exam Extremities exam: Present: warm, radial pulses palpable and symmetrical. Absent : calf tenderness Additional comments: chronic venous stasis in b/l LE - Neurological Exam Neurological exam: Present: oriented X3 - Psychiatric Psychiatric exam: Present: normal affect, normal mood Internal Medicine: Result - Labs CBC & Chem 7: 11/18/17 03:22 11/18/17 03:22 Labs: Short CBC 11/18/17 Range/Units 03:22 WBC 12.3 H (4.3-11.1) K/mcL Hgb 10.5 L (11.5-15.4) g/dL Hct 32.3 L (35.3-44.9) % Plt Count 153 (140-400) K/mcL Neutrophils # 9.7 H (1.6-8.9) K/mcL BMP 11/18/17 03:22 Sodium 127 L Potassium 4.6 Chloride 92 L Carbon Dioxide 25 BUN 91 H Creatinine 3.30 H Glucose 54 L Calcium 8.4 L - ABG Interpretation ABG results: PT/INR, D-dimer PT 10.6 Seconds (9.4-12.1) 11/11/17 11:59 D-Dimer 855 ng/mLFEU (0-500) H 11/11/17 16:22 - Impressions Impressions AV Shunt Angiogram 11/17/17 00:00 IMPRESSION: 1. Successful thrombectomy of the left upper extremity dialysis access. 2. Venous outflow stenosis angioplastied 6 mm with good angiographic result. 3. [employer] thrill. D/ / Rios Clay MD / Rios Clay MD Interpreting Provider: Rios Clay MD Shunt Angiogram 11/17/17 00:00 IMPRESSION: 1. Successful thrombectomy of the left upper extremity dialysis access. 2. Venous outflow stenosis angioplastied 6 mm with good angiographic result. 3. [employer] thrill. D/ / Rios Clay MD / Rios Clay MD Interpreting Provider: Rios Clay MD STOR WINDER, Venous 11/17/17 00:00 IMPRESSION: 1. Successful thrombectomy of the left upper extremity dialysis access. 2. Venous outflow stenosis angioplastied 6 mm with good angiographic result. 3. [employer] thrill. D/ / Rios Clay MD / Rios Clay MD Interpreting Provider: Rios Clay MD Permanent Dialysis Access 11/17/17 00:00 IMPRESSION: 1. Successful thrombectomy of the left upper extremity dialysis access. 2. Venous outflow stenosis angioplastied 6 mm with good angiographic result. 3. [employer] thrill. D/ / 11/18/2017 09:41:30 Rios Clay MD / daniel Interpreting Provider: Rios Clay MD Vena Cavagram, [place] 11/17/17 00:00 IMPRESSION: 1. Successful thrombectomy of the left upper extremity dialysis access. 2. Venous outflow stenosis angioplastied 6 mm with good angiographic result. 3. [employer] thrill. D/ / 11/18/2017 09:41:30 Rios Clay MD / daniel Interpreting Provider: Rios Clay MD Consult Discharge Plan - Plan Referrals: Tristen Quintana MD [Primary Care Provider] - 11/23/17 1:45 pm (please follow up as schedule...)
[2017-11-19] MEDS: Ipratropium/Albuterol Neb 3 ML IH SCH ×4 (03:24→21:45)
[2017-11-19] MEDS: *HR* Heparin 5,000 UNIT/ML VIAL SQ SCH ×3 (06:01→21:49)
[2017-11-19] MEDS: *HR* OxyCODONE ER (12 HR) 20 MG TABLET PO SCH ×2 (06:02→16:54)
[2017-11-19 06:06] LABS: Basophils % 0.2 %; Eosinophils # 0.2 K/mcL (0.0-0.6); Eosinophils % 1.7 %; Hematocrit 31.8 % (35.3-44.9); Hemoglobin 10.2 g/dL (11.5-15.4); Immature Granulocytes % 1.2 % (0-4); Lymphocytes # 1.7 K/mcL (0.6-4.6); Lymphocytes % 12.4 %; Mean Corpuscular HGB Conc 32.1 g/dL (31.6-35.5); Mean Corpuscular Hemoglobin 27.5 pg (28.0-33.3); Mean Corpuscular Volume 85.7 fL (83.0-100.0); Mean Platelet Volume 10.2 fL (9.4-12.4); Monocytes # 1.1 K/mcL (0.0-1.3); Monocytes % 8.3 %; Neutrophils # 10.4 K/mcL (1.6-8.9); Platelet Count 155 K/mcL (140-400); Red Blood Count 3.71 M/mcL (3.82-4.97); Red Cell Distribution Width 17.7 % (11.5-14.5); Segmented Neutrophils % 76.2 %
[2017-11-19 06:36] LABS: Calcium 8.8 mg/dL (8.6-10.3); Magnesium 2.3 mg/dL (1.6-2.6); Phosphorous 5.3 mg/dL (2.7-4.5); Potassium 3.9 mEq/L (3.5-5.1)
[2017-11-19] MEDS ORDERED: 0.9 % Sodium Chloride 250 ML IVC PRN (07:28)
[2017-11-19] MEDS ORDERED: 0.9 % Sodium Chloride 1,000 ML PRIME SCH (07:30)
[2017-11-19] MEDS ORDERED: Insulin DETEMIR 100 UNIT/ML X5UNITS SQ SCH (09:00)
[2017-11-19] MEDS: Insulin LISPRO 300 UNITS/3 ML VIAL SQ SCH ×4 (09:16→21:50)
[2017-11-19] MEDS: metOLazone 2.5 MG TABLET PO SCH (09:46)
[2017-11-19] MEDS: Sennosides 8.6 MG TABLET PO SCH ×2 (09:46→21:48)
[2017-11-19] MEDS: GuaiFENesin/Dextromethorphan TABLET PO SCH ×2 (09:46→21:47)
[2017-11-19] MEDS: Renal Vitamin 1 MG CAPSULE PO SCH (09:46)
[2017-11-19] MEDS: Calcium Acetate 667 MG CAPSULE PO SCH ×3 (09:46→16:55)
[2017-11-19] MEDS: Gabapentin 100 MG CAPSULE PO SCH ×3 (09:46→21:48)
[2017-11-19] MEDS: ARIPiprazole 10 MG TABLET PO SCH (09:46)
[2017-11-19] MEDS: Cholecalciferol (D-3) 1,000 UNIT TABLET PO SCH (09:46)
[2017-11-19] MEDS: Aspirin Enteric Coated 81 MG Tablet PO SCH (09:46)
--- NOTE | 2017-11-19 10:03 | Nephrology Progress Note ---
Date of Encounter: 11/19/17 Time of Encounter: 09:05 - Assessment and Plan (1) ESRD (end stage renal disease) on dialysis Current Visit: Yes Status: Chronic ESRD on chronic dialysis M/W/F. Due for HD today (Wednesday) Will add Heparin to help facilitate BFR, which was near 350, per dead mail checker. LUE AVF s/p fistulagram with improved thrill and bruit but still some ecchymosis and SQ edema (which is improved as per executive vice president business development as compared to yesterday). Phos: rec phos binder qAC Anemia of CKD: target Hgb 10-11. Cont KAITLIN Nutrition: goal serum Albumin is 4, please provide Nepro as needed. Next HD is tentatively planned for Wednesday, but if she has inc'd edema tomorrow, then may need UF, so will assess her in the AM. (2) Hyperphosphatemia Current Visit: No Status: Chronic Phos binders and low Phos diet. See above. (3) Problem with dialysis access Current Visit: No Status: Acute Appears to be improving having undergone a fistulagram on Wednesday. Qualifiers: Encounter type: subsequent encounter Qualified Code(s): T82.898D - Other specified complication of vascular prosthetic devices, implants and grafts, subsequent encounter (4) HTN (hypertension) Current Visit: Yes Status: Chronic Hold antihypertensive Rx on mornings of dialysis. Qualifiers: Hypertension type: essential hypertension Qualified Code(s): I10 - Essential (primary) hypertension Subjective Principal diagnosis: ESRD Interval history: Pt was s/e while on dialysis. She reported that she is not wanting the stress test. She did not affirm N/V/D or cramping or other complaints while on dialysis. Objective - Vital Signs Vital signs: Vital Signs Temp Pulse Resp BP Pulse Ox 11/19/17 06:43 98.9 F 76 17 134/65 95 11/19/17 03:36 98.4 F 75 17 139/70 93 11/18/17 23:59 98.9 F 79 16 128/53 95 11/18/17 19:27 99.5 F 89 18 153/72 91 11/18/17 16:44 99.1 F 77 13 122/70 96 Intake and Output 11/18/17 11/19/17 11/19/17 23:59 07:59 15:59 Intake Total 0 / 0 0 / 0 Balance 0 / 0 0 / 0 Intake: Oral 0 / 0 0 / 0 Other: Meal Lunch Breakfast Percent of Meal Consumed 0% 0% # Voids 1 Weight 107.8 kg Blood Glucose* 89 101 Patient Weight 11/19/17 23:59 Weight 107.8 kg - General Appearance General appearance: Present: well-developed, obese, chronically ill, fatigue, frail EENT: Present: ATNC, PERRL, mucous membranes moist Neck: Present: supple Respiratory: Present: clear Cardiology: Present: edema (trace to 1+ pretibial pitting edema b/l), regular rate, regular rhythm, normal S1, normal S2 Dialysis Vascular Access: Arteriovenous Fistula (LUE) thrill: Yes bruit: Yes Gastrointestinal: Present: normoactive bowel sounds, no tenderness, obese Integumentary: Present: warm and dry, ecchymotic, chronic venous stasis Neurologic: Present: alert and oriented x3 Musculoskeletal: Present: no cyanosis, no clubbing Psychiatric: Present: mood/affect appropriate, cooperative - Lab 11/19/17 05:52 11/19/17 05:52 Most recent lab results Calcium 8.8 mg/dL (8.6-10.3) 11/19/17 05:52 Phosphorus 5.3 mg/dL (2.7-4.5) H 11/19/17 05:52 Magnesium 2.3 mg/dL (1.6-2.6) 11/19/17 05:52 Consult Discharge Plan - Plan Referrals: Tristen Quintana MD [Primary Care Provider] - 11/23/17 1:45 pm (please follow up as schedule...)
[2017-11-19] MEDS: Budesonide/Formoterol 160/4.5 MDI IH SCH ×2 (10:25→21:46)
--- NOTE | 2017-11-19 10:46 | Infectious Disease Progress No ---
Date of Encounter: 11/19/17 Time of Encounter: 10:46 - Assessment and Plan (1) Multiple drug resistant organism (MDRO) culture positive Current Visit: Yes Status: Acute 61-year-old female with history of recurrent UTIs secondary to ESBL Escherichia coli, as well as ESBL Klebsiella pneumonia, ESBL Proteus. On admission of 10/18/17 patient was treated with ertapenem for ESBL Escherichia coli. On 10/24/17 patient was again treated with ertapenem and then discharged with meropenem which she completed 11/02/17 CT abdomen/pelvis on 10/18/17 showed right perinephric stranding and right [place] nephrosis: Patient has planned diagnostic ureteroscopy. Patient has a Pereira catheter in place since admission on 10/18/17 During this admission for chest pain/shortness of breath patient complained of dysuria. Also before admission she had symptoms of bladder spasm and was prescribed oxybutinin hx of nephrolithiasis Urine culture grew MDR Escherichia coli, urinalysis was dirty catch. Likely colonization Patient White blood cell count continues to increase but she does not meet any other SIRS criteria. has pereira catheter palced due to retention: urine clear pao color unchanged from previous. Continue to observe. No antibiotics indicated at this point. (2) Influenza A Current Visit: Yes Status: Acute Influenza A + completed oseltamavir course continue supportive care. (3) COPD exacerbation Current Visit: Yes Status: Resolved as per primary (4) Sacral decubitus ulcer, stage II Current Visit: Yes Status: Acute Turn Q2h dressed with minimal discharge (5) Diabetes Current Visit: Yes Status: Chronic uncontrolled insulin dependent patient needs better control as glycosuria is a risk factor for recurrent UTIs. as per primary Qualifiers: Diabetes mellitus type: type 2 Diabetes mellitus complication status: with hyperglycemia Diabetes mellitus terminologist insulin use: with shelter use Qualified Code(s): E11.65 - Type 2 diabetes mellitus with hyperglycemia; Z79.4 - halfway (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 of insulin (6) ESRD (end stage renal disease) on dialysis Current Visit: Yes Status: Chronic - Subjective Interval history: Patient is more awake, alert and answering all my questions. Patient is urinary retention this morning with a bladder scan showing 600 mL of urine. She had a Pereira catheter placed. She denies headache, sinus pressure, nasal discharge, productive sputum, shortness of breath, chest pain, palpitations, nausea vomiting diarrhea, lower extremity pain, swelling. She continues to have a cough. Infect Dis PN-Objective Data - Labs CBC & Chem 7: 11/19/17 05:52 11/19/17 05:52 Labs: Laboratory Results - last 24 hr 11/19/17 11/19/17 05:52 05:52 WBC 13.6 H RBC 3.71 L Hgb 10.2 L Hct 31.8 L MCV 85.7 MCH 27.5 L MCHC 32.1 RDW 17.7 H Plt Count 155 MPV 10.2 Immature Gran % 1.2 Seg Neutrophils % 76.2 Lymphocytes % 12.4 Monocytes % 8.3 Eosinophils % 1.7 Basophils % 0.2 Neutrophils # 10.4 H Lymphocytes # 1.7 Monocytes # 1.1 Eosinophils # 0.2 Basophils # 0.0 Sodium 132 L Potassium 3.9 Chloride 93 L Carbon Dioxide 27 BUN 63 H Creatinine 3.46 H Est GFR ( Amer) 16 L Est GFR (Non-Af Amer) 13 L BUN/Creatinine Ratio 18 Glucose 98 Calculated Osmolality 292 Calcium 8.8 Phosphorus 5.3 H Magnesium 2.3 Exam - Constitutional Vitals: Temp Pulse Resp BP Pulse Ox 98.9 F 76 17 134/65 95 11/19/17 06:43 11/19/17 06:43 11/19/17 06:43 11/19/17 06:43 11/19/17 06:43 - Additional findings Additional findings: General: no distress Heart: Regular rate and rhythm with no murmur Lungs:clear b/l Abdomen: Soft nontender, nondistended positive bowel sounds. Skin: warm and dry, stage II sacral decubitus ulcer, right heel wound dressed Extremities: Nonpitting pedal edema Neuro: Alert and oriented 3 Vascular: Pedal and radial pulses 2 out of 4 Line: Left AV fistula. Consult Discharge Plan - Plan Additional Instructions: Please follow up with your primary care physician within five days after your discharge from the hospital. Please continue your hemodialysis sessions as per your primary motorcycle subassembler. Your home dose of Amlodipine has been increased to 10mg once a day. Imdur 30 mg once a day has been added to your home medications. Your home dose of insulin has been changed. Levemir has been decreased to 20 units twice a day. Humalog has been discontinued. Closely monitor your blood glucose at home. Resume all other medications as prescribed by your primary care physician. Referrals: Tristen Quintana MD [Primary Care Provider] - 11/23/17 1:45 pm (please follow up as schedule...) Prescriptions: amLODIPine [Norvasc] 10 mg PO DAILY #30 tablet Isosorbide MONOnitrate (24 HR) [Imdur] 30 mg PO DAILY #30 tab.er.24h - Attending Attestation I examined this patient and my medical decision-making was reviewed with the Resident Physician. I agree with the documented findings, disposition and treatment plan as described except to the extent set forth below.
[2017-11-19] MEDS ORDERED: 0.9 % Sodium Chloride 2,000 ML ONE (12:14)
--- NOTE | 2017-11-19 13:22 | Discharge Summary ---
Date of Encounter: 11/19/17 Time of Encounter: 13:05 - Discharge Diagnosis (1) Chest pain Priority: Secondary Status: Resolved Qualifiers: Chest pain type: other chest pain Qualified Code(s): R07.89 - Other chest pain; R07.8 - Other chest pain (2) DVT prophylaxis Priority: Secondary Status: Acute (3) Influenza A Priority: Primary Status: Acute (4) Sacral decubitus ulcer, stage II Priority: Secondary Status: Acute (5) CAD (coronary artery disease) Priority: Secondary Status: Chronic Qualifiers: Coronary Disease-Associated Artery/Lesion type: [place] artery [place] vs. transplanted heart: [place] heart Associated angina: without angina Qualified Code(s): I25.10 - Atherosclerotic heart disease of [place] coronary artery without angina pectoris (6) Diabetes Priority: Secondary Status: Chronic Qualifiers: Diabetes mellitus type: type 2 Diabetes mellitus complication status: with hyperglycemia Diabetes mellitus terminal computer operator insulin use: with shelter use Qualified Code(s): E11.65 - Type 2 diabetes mellitus with hyperglycemia; Z79.4 - half-way (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 of insulin (7) ESRD (end stage renal disease) on dialysis Priority: Secondary Status: Chronic (8) Acute and chronic respiratory failure Priority: Primary Status: Acute Qualifiers: Respiratory failure complication: hypoxia Qualified Code(s): J96.21 - Acute and chronic respiratory failure with hypoxia (9) Acute exacerbation of chronic obstructive airways disease Priority: Primary Status: Acute (10) UTI (urinary tract infection) Priority: Secondary Status: Acute Qualifiers: Urinary tract infection type: site unspecified Hematuria presence: with hematuria Qualified Code(s): N39.0 - Urinary tract infection, site not specified; R31.9 - Hematuria, unspecified; R31.9 - Hematuria, unspecified (11) Congestive heart failure Priority: Primary Status: Acute Qualifiers: Heart failure type: unspecified Heart failure chronicity: acute on chronic Qualified Code(s): I50.9 - Heart failure, unspecified (12) Hypertension Priority: Secondary Status: Chronic Qualifiers: Hypertension type: essential hypertension Qualified Code(s): I10 - Essential (primary) hypertension - Discharge Medications Prescriptions: amLODIPine [Norvasc] 10 mg PO DAILY #30 tablet Isosorbide MONOnitrate (24 HR) [Imdur] 30 mg PO DAILY #30 tab.er.24h Home Medications: Clopidogrel [Plavix] 75 mg PO DAILY 05/11/15 [History] Omeprazole [PriLOSEC] 20 mg PO BID 05/11/15 [History] Colestipol HCl [Colestid] 1 gm PO BID 06/12/15 [History] Carvedilol 12.5 mg PO BID 10/28/15 [History] Calcium Acetate [Phos-LO] 1,334 mg PO TIDWM 09/06/16 [History] Folic Acid/Vit Bcomp,C [Renal Vitamin Tablet] 0.8 mg PO DAILY 04/15/17 [History] ARIPiprazole [Abilify] 10 mg PO DAILY 09/13/17 [History] Amitriptyline HCl 100 mg PO HS 09/13/17 [History] Aspirin Enteric Coated [Aspirin EC] 81 mg PO DAILY 09/13/17 [History] Budesonide/Formoterol 160/4.5 [Symbicort 160/4.5] 2 puff IH BIDR 09/13/17 [ History] Cholecalciferol (Vitamin D3) [Vitamin D3] 50,000 unit PO TH 09/13/17 [History] Lidocaine/Prilocaine CREAM [Emla] 1 appl TP AD PRN 09/13/17 [History] OxyCODONE ER (12 HR) [OxyCONTIN] 20 mg PO Q12HR 09/13/17 [History] OxyCODONE/APAP 10/325 [Percocet 10/325 MG] 1 tab PO Q6H PRN 09/13/17 [History] Oxygen 2 l NS AD 09/13/17 [History] Sennosides [Senna] 8.6 mg PO BID 09/13/17 [History] Sevelamer [Renvela] 800 mg PO TIDWM 09/13/17 [History] Albuterol Neb [AccuNeb] 0.63 mg IH Q6H PRN 10/18/17 [History] Gabapentin [Neurontin] 100 mg PO TID #60 capsule 10/21/17 [Rx] Rosuvastatin [Crestor] 10 mg PO HS #15 tablet 10/21/17 [Rx] Docusate Sodium [Colace] 100 mg PO BID #60 capsule 10/26/17 [Rx] metOLazone [Zaroxolyn] 1 tab PO DAILY 10/26/17 [History] Collagenase Oint [Santyl] 1 appl TP AD 11/11/17 [History] Oxybutynin [Ditropan] 5 mg PO TID 11/11/17 [History] Insulin DETEMIR [Levemir] 20 unit SQ DAILY [id number] 11/19/17 [Rx] Insulin DETEMIR [Levemir] 20 unit SQ HS [id number] 11/19/17 [Rx] Isosorbide MONOnitrate (24 HR) [Imdur] 30 mg PO DAILY #30 tab.er.24h 11/19/17 [ Rx] amLODIPine [Norvasc] 10 mg PO DAILY #30 tablet 11/19/17 [Rx] Allergies/Adverse Reactions: 3 Allergy/AdvReac Type Severity Reaction Status Date / Time No Known Allergies Allergy Verified 11/11/17 11:44 Date of admission: 11/18/17 15:53 Primary care physician: Tristen Quintana MD Consults: 11/19/17 07:30 Consult to Dialysis [CONS] ONCE Discharging clinician: Cecilia Velasquez Anticipated date of discharge: 11/19/17 - Patient Status Disposition: Home Health Service Condition: Fair Functional capacity at discharge: bed bound Overall status at discharge: patient is not back to baseline - Discharge Instructions Follow Up With: Tristen Quintana MD [Primary Care Provider] - 11/23/17 1:45 pm (please follow up as schedule...) Additional Instructions: Please follow up with your primary care physician within five days after your discharge from the hospital. Please continue your hemodialysis sessions as per your primary slinger sequins. Please follow up with cardiology within one to two weeks after your discharge from the hospital. Your home dose of Amlodipine has been increased to 10mg once a day. Imdur 30 mg once a day has been added to your home medications. Your home dose of insulin has been changed. Levemir has been decreased to 20 units twice a day. Humalog has been discontinued. Closely monitor your blood glucose at home. Resume all other medications as prescribed by your primary care physician. - Diet and Activity Activity: as per physical therapy, wear oxygen at all times, wear oxygen at night Diet: diabetic diet, low fat, low cholesterol, low salt diet Hospital course: Ms. Riley is a 62 year old female with PMH of ESRD on HD, afib, CHF, COPD on LTOT, CAD, indwelling pereira catheter who was admitted for acute CHF exacerbation , COPD exacerbation. She was found to have influenza positive for which she was started on Tamiflu. She received GUIDANCE DIRECTOR for volume overload and systemic steroids for COPD exac. She improved with therapy. She continued to have recurrent chest pain for which cardiology was consulted. She was scheduled for nuclear stress test. She agreed to the test initially however refused the test when she was taken down for testing. She refused any cardiac work up. She has gotten progressively weak as she has refused to work with physical therapy. Physical therapy is recommending ECF however pt continues to adamantly refuse. She is requiring two person assist to get her out of bed however continues to refuse ECF placement. She has one aide at home set up with home health services however she is requiring two person assist. She is made aware that she is risking herself and the home health aide and given her persistent refusal adult protective services will be consulted. She acknowledges all the risks and continues to refuse discharge to ECF. Her urine cultures during this hospitalization were positive for MDRO UTI for which ID was consulted. Given recurrent UTI with same organism, contamination was a concern and pt has been monitored off abx. At this time she is hemodynamically stable and will be discharged to home with home health services. - Time Spent with Patient Total time spent providing and/or coordinating discharge services: Greater than 30 minutes - Constitutional Vitals: Temp Pulse Resp BP Pulse Ox 98.0 F 76 15 118/52 95 11/19/17 09:30 11/19/17 06:43 11/19/17 09:30 11/19/17 12:30 11/19/17 06:43 General appearance: Present: cooperative, A&O X 3, pleasant, no acute distress, obese, answers questions appropriately - Head Head exam: Present: atraumatic, normocephalic - Eye Eye exam: Present: conjuntiva pink, sclera anicteric - Respiratory Respiratory exam: Present: CTAB. Absent: respiratory distress, wheezes - Cardiovascular Cardiovascular exam: Present: RRR, +S1, +S2. Absent: diastolic murmur, gallop, rubs, systolic murmur - GI/Abdominal GI/Abdominal exam: Present: normal bowel sounds, soft, no peritoneal signs. Absent: distended, tenderness - Extremities Exam Extremities exam: Present: warm, radial pulses palpable and symmetrical. Absent : calf tenderness - Neurological Exam Neurological exam: Present: alert, oriented X3 - Psychiatric Psychiatric exam: Present: normal affect, normal mood
[2017-11-19] MEDS: amLODIPine 5 MG TABLET PO SCH (14:04)
[2017-11-19] MEDS: Insulin DETEMIR 100 UNIT/ML X5UNITS SQ SCH ×2 (14:04→21:51)
[2017-11-19 14:41] LABS: INR 1.1; Prothrombin Time 11.9 Seconds (9.4-12.1)
--- NOTE | 2017-11-19 14:48 | Cardiology Progress Note ---
Date of Encounter: 11/19/17 Time of Encounter: 13:00 Assessment and Plan (1) Chest pain Current Visit: No Status: Acute Per cardiology: -Patient with extensive cardiac history including multiple stents and CABG. -Patient's last [facility] 10/27: patent SVG-RCA; otherwise moderate, non-obstructive CAD -Regadenoson nuclear 09/06/16: perfusion imaging negative for ischemia or infarct. -Troponin neagtive x5 -TTE 11/12/17 shwoed preserved LVEF and normal wall motion. -Denies current chest pain. -Patient refused stress this am and refused further invasive work up. -Cardiology will sign off and will follow in outpatient setting. Follow up set. Qualifiers: Chest pain type: unspecified Qualified Code(s): R07.9 - Chest pain, unspecified (2) Atrial fibrillation Current Visit: No Status: Chronic Per cardiology: -Pt with History of a fib. -currently not on anticoagulation secondary to hx of vaginal bleeding. -Currently SR -Per discussion with , will re-evalaute anticoagulation in outpatient setting. Qualifiers: Atrial fibrillation type: paroxysmal Qualified Code(s): I48.0 - Paroxysmal atrial fibrillation Discussion w patient/family: The assessment and plan as outlined above was discussed with the patient who expressed understanding and agreement. All questions were answered. Thank you for involving us in the care of your patient. Please call with any questions. Discussed and reviewed with . Subjective Principal diagnosis: ESRD, influenza Interval history: Patient seen this morning durnig stress test. Patient refused stress test or further invasive cardiac work up. Patient re-evaluated this afternoon, still refusing cardiac testing. Patient denies chest pain, states breathing better today. Objective Vital Signs, Last 4 Hours Temp Resp BP 11/19/17 12:50 97.5 F L 16 134/54 11/19/17 12:30 118/52 11/19/17 12:15 137/54 11/19/17 12:00 137/48 11/19/17 11:45 152/59 11/19/17 11:30 128/55 11/19/17 11:15 132/47 11/19/17 11:00 150/58 General: Conversant, No Apparent Distress HEENT: Atraumatic, Normocephaly, Mucus Membranes Moist Neck: No JVD, Normal carotid pulses Cardiac: Reg Rate and Rhythm, Normal S1 and S2, No Murmur Lungs: Other (Lungs with diminished bases bilaterally. ) Neuro: Alert and responsive, No focal deficits noted Abdomen: Soft, Non-Tender Skin: No rashes noted on visualized skin Musculoskeletal: No Chest Wall Tenderness Extremities: No Clubbing, No Cyanosis, No Edema, Normal Pulses Results 11/19/17 05:52 11/19/17 05:52 Lab Results Active Medications Acetaminophen (Tylenol) 650 mg PO Q6HR PRN PRN Reason: Mild Pain/Fever Stop: 05/13/18 14:30 Last Admin: 11/18/17 20:00 Dose: 650 mg Albuterol Sulfate (Accuneb) 0.63 mg IH Q6H PRN PRN Reason: Shortness Of Breath Stop: 05/13/18 14:44 Last Admin: 11/11/17 19:58 Dose: 0.63 mg Albuterol/Ipratropium (Duoneb) 3 ml IH [id number] [facility] Stop: 05/14/18 16:01 Last Admin: 11/19/17 10:25 Dose: Not Given Amitriptyline HCl (Elavil) 100 mg PO HS [facility] Stop: 05/13/18 21:01 Last Admin: 11/18/17 19:59 Dose: 100 mg Amlodipine Besylate (Norvasc) 10 mg PO DAILY NATALIE PRN Reason: Protocol Stop: 05/19/18 09:01 Last Admin: 11/19/17 14:04 Dose: 10 mg Aripiprazole (Abilify) 10 mg PO DAILY NATALIE Stop: 05/14/18 09:01 Last Admin: 11/19/17 09:46 Dose: 10 mg Aspirin (Aspirin Ec) 81 mg PO DAILY NATALIE Stop: 05/14/18 09:01 Last Admin: 11/19/17 09:46 Dose: 81 mg Budesonide/Formoterol Fumarate (Symbicort) 2 puff IH BIDR NATALIE PRN Reason: Protocol Stop: 05/13/18 22:01 Last Admin: 11/19/17 10:25 Dose: Not Given Calcium Acetate (Phos-Lo) 1,334 mg PO TIDWM NATALIE Stop: 05/13/18 17:01 Last Admin: 11/19/17 14:04 Dose: 1,334 mg Carvedilol (Coreg) 12.5 mg PO BIDWM [facility] Stop: 05/13/18 17:01 Last Admin: 11/19/17 09:46 Dose: Not Given Clopidogrel Bisulfate (Plavix) 75 mg PO DAILY [facility] Stop: 05/14/18 09:01 Last Admin: 11/19/17 09:45 Dose: 75 mg Dextrose/Water (Dextrose 50% (Syg)) 25 ml IVP AD PRN PRN Reason: Hypoglycemia Stop: 05/13/18 14:47 Last Admin: 11/18/17 07:53 Dose: 25 ml Docusate Sodium (Colace) 100 mg PO BID [facility] PRN Reason: Protocol Stop: 05/13/18 21:01 Last Admin: 11/19/17 09:46 Dose: 100 mg Gabapentin (Neurontin) 100 mg PO TID [facility] Stop: 05/13/18 15:01 Last Admin: 11/19/17 14:03 Dose: 100 mg Glucagon (Glucagen) 1 mg IM ONCE PRN PRN Reason: Hypoglycemia Stop: 05/13/18 14:47 Glucose (Gluctose) 15 gm PO ONCE PRN PRN Reason: Hypoglycemia Stop: 05/13/18 14:47 Glucose (Gluctose) 30 gm PO ONCE PRN PRN Reason: Hypoglycemia Stop: 05/13/18 14:47 Guaifenesin (Mucinex Dm) 1 each PO BID [facility] Stop: 05/13/18 21:01 Last Admin: 11/19/17 09:46 Dose: 1 each Guaifenesin (Robitussin Liq) 200 mg PO Q6HR PRN PRN Reason: Cough Stop: 05/14/18 04:01 Last Admin: 11/14/17 18:46 Dose: 200 mg Heparin Sodium (Porcine) (Heparin) 5,000 unit SQ Q8HCO [facility] Stop: 05/13/18 22:01 Last Admin: 11/19/17 14:04 Dose: 5,000 unit Hydralazine HCl (Hydralazine) 10 mg IVP Q6HR PRN PRN Reason: SBP>150 Stop: 05/17/18 16:08 Dextrose (Dextrose 5%) 1,000 mls @ 100 mls/hr IVC .Q10H PRN PRN Reason: HYPOGLYCEMIA Stop: 05/13/18 14:47 Sodium Chloride (0.9 % Sodium Chloride) 250 mls @ 937.5 mls/hr IVC .Q16M PRN PRN Reason: Hypotension Stop: 05/21/18 07:29 Sodium Chloride (0.9 % Sodium Chloride) 1,000 mls @ 0 mls/hr PRIME .Q0M NATALIE PRN Reason: As Directed Stop: 05/21/18 07:31 Insulin Detemir (Levemir) 20 unit SQ HS [facility] Stop: 05/20/18 21:01 Last Admin: 11/18/17 19:59 Dose: Not Given Insulin Detemir (Levemir) 20 unit SQ DAILY [facility] Stop: 05/21/18 10:31 Last Admin: 11/19/17 14:04 Dose: 20 unit Insulin Human Lispro (Humalog) 0 units SQ HS [facility] PRN Reason: Protocol Stop: 05/14/18 21:01 Last Admin: 11/18/17 19:58 Dose: Not Given Insulin Human Lispro (Humalog) 0 units SQ TIDAC [facility] PRN Reason: Protocol Stop: 05/14/18 12:01 Last Admin: 11/19/17 13:44 Dose: Not Given Isosorbide Mononitrate (Imdur) 30 mg PO DAILY [facility] Stop: 05/18/18 11:01 Last Admin: 11/17/17 09:01 Dose: 30 mg Lidocaine/Prilocaine (Emla) 5 gm TP AD PRN PRN Reason: Prior to Dialysis Stop: 05/13/18 14:44 Metolazone (Zaroxolyn) 5 mg PO DAILY [facility] Stop: 05/14/18 09:01 Last Admin: 11/19/17 09:46 Dose: 5 mg Naloxone HCl (Narcan) 0.4 mg IVP Q2MIN PRN PRN Reason: SEE COMMENTS Stop: 05/13/18 14:30 Nitroglycerin (Nitroglycerin) 0.4 mg SL Q5MIN PRN PRN Reason: Chest Pain Stop: 05/18/18 08:52 Last Admin: 11/16/17 08:56 Dose: 0.4 mg Omeprazole (Prilosec) 20 mg PO BID [facility] PRN Reason: Protocol Stop: 05/13/18 21:01 Last Admin: 11/19/17 09:45 Dose: 20 mg Oxybutynin Chloride (Ditropan) 5 mg PO TID [facility] PRN Reason: Protocol Stop: 05/13/18 15:01 Last Admin: 11/19/17 14:03 Dose: 5 mg Oxycodone HCl (Oxycontin) 20 mg PO Q12HR NATALIE Stop: 05/13/18 18:01 Last Admin: 11/19/17 06:02 Dose: Not Given Oxycodone/Acetaminophen (Percocet 10/325) 1 each PO Q6H PRN PRN Reason: Severe Pain (7-10) Stop: 05/13/18 14:44 Last Admin: 11/14/17 20:50 Dose: 1 each Promethazine HCl (Phenergan) 12.5 mg IVP Q6HR PRN PRN Reason: Nausea And Vomiting Stop: 05/13/18 16:46 Last Admin: 11/17/17 16:47 Dose: 12.5 mg Rosuvastatin Calcium (Crestor) 10 mg PO HS [facility] Stop: 05/14/18 21:01 Last Admin: 11/18/17 19:59 Dose: 10 mg Senna (Senna) 8.6 mg PO BID NATALIE Stop: 05/13/18 21:01 Last Admin: 11/19/17 09:46 Dose: 8.6 mg Sevelamer HCl (Renvela) 800 mg PO TIDWM NATALIE Stop: 05/13/18 17:01 Last Admin: 11/19/17 14:04 Dose: 800 mg Vitamin B Complex/Vit C/Folic Acid (Renal Caps Softgel) 1 mg PO DAILY NATALIE Stop: 05/14/18 09:01 Last Admin: 11/19/17 09:46 Dose: 1 mg Vitamin D (Vitamin D) 1,000 unit PO DAILY NATALIE Stop: 05/13/18 14:46 Last Admin: 11/19/17 09:46 Dose: 1,000 unit Laboratory Tests 11/19/17 11/19/17 05:52 05:52 WBC 13.6 H Hgb 10.2 L Creatinine 3.46 H - Imaging and Cardiology Chest Xray: report reviewed Echo: report reviewed - EKG Interpretation EKG results cardiology: other (Telemetry reviewed with average HR previous 12 hours noted to be 75, SR. PACs noted.) Consult Discharge Plan - Plan Referrals: Tristen Quintana MD [Primary Care Provider] - 11/23/17 1:45 pm (please follow up as schedule...)
[2017-11-20 04:39] LABS: Hematocrit 32.1 % (35.3-44.9); Mean Corpuscular HGB Conc 31.2 g/dL (31.6-35.5); Mean Corpuscular Hemoglobin 27.2 pg (28.0-33.3); Mean Corpuscular Volume 87.2 fL (83.0-100.0); Mean Platelet Volume 10.6 fL (9.4-12.4); Platelet Count 194 K/mcL (140-400); Red Blood Count 3.68 M/mcL (3.82-4.97); Red Cell Distribution Width 17.2 % (11.5-14.5)
[2017-11-20 04:53] LABS: Calcium 9.1 mg/dL (8.6-10.3)
[2017-11-20] MEDS: *HR* OxyCODONE ER (12 HR) 20 MG TABLET PO SCH (04:55)
[2017-11-20] MEDS: *HR* Heparin 5,000 UNIT/ML VIAL SQ SCH (04:55)
[2017-11-20] MEDS: Ipratropium/Albuterol Neb 3 ML IH SCH ×3 (05:04→15:22)
[2017-11-20] MEDS: Calcium Acetate 667 MG CAPSULE PO SCH ×2 (08:19→12:06)
[2017-11-20] MEDS: Sennosides 8.6 MG TABLET PO SCH (08:20)
[2017-11-20] MEDS: amLODIPine 5 MG TABLET PO SCH (08:20)
[2017-11-20] MEDS: Cholecalciferol (D-3) 1,000 UNIT TABLET PO SCH (08:20)
[2017-11-20] MEDS: metOLazone 2.5 MG TABLET PO SCH (08:20)
[2017-11-20] MEDS: GuaiFENesin/Dextromethorphan TABLET PO SCH (08:20)
[2017-11-20] MEDS: Gabapentin 100 MG CAPSULE PO SCH (08:20)
[2017-11-20] MEDS: *HR* OxyCODONE/APAP 10/325 TABLET PO PRN (08:20)
[2017-11-20] MEDS: ARIPiprazole 10 MG TABLET PO SCH (08:21)
[2017-11-20] MEDS: Insulin LISPRO 300 UNITS/3 ML VIAL SQ SCH ×2 (08:21→12:06)
[2017-11-20] MEDS: Renal Vitamin 1 MG CAPSULE PO SCH (08:21)
[2017-11-20] MEDS: Aspirin Enteric Coated 81 MG Tablet PO SCH (08:21)
[2017-11-20] MEDS: Insulin DETEMIR 100 UNIT/ML X5UNITS SQ SCH (08:33)
--- NOTE | 2017-11-20 10:09 | Event Note ---
Date of Encounter: 11/20/17 Time of Encounter: 10:08 Nephrology Note Next HD is planned for Wednesday. I will be available this week, so please feel free to call and/or page me with any questions. Thank you.
[2017-11-20] MEDS: Budesonide/Formoterol 160/4.5 MDI IH SCH (10:53)
[2017-11-20 11:00] VITALS: BP 127/65
--- NOTE | 2017-11-20 13:50 | Physician Discharge Referral ---
Home Health/Hosp Referral Info Transfer to: Home Health Provider in Charge Post Discharge: PCP - Diagnosis (1) Chest pain Priority: Secondary Status: Resolved (2) DVT prophylaxis Priority: Secondary Status: Acute (3) Influenza A Priority: Primary Status: Acute (4) Sacral decubitus ulcer, stage II Priority: Secondary Status: Acute (5) CAD (coronary artery disease) Priority: Secondary Status: Chronic (6) Diabetes Priority: Secondary Status: Chronic (7) ESRD (end stage renal disease) on dialysis Priority: Secondary Status: Chronic (8) Acute and chronic respiratory failure Priority: Primary Status: Acute (9) Acute exacerbation of chronic obstructive airways disease Priority: Primary Status: Acute (10) UTI (urinary tract infection) Priority: Secondary Status: Acute (11) Congestive heart failure Priority: Secondary Status: Acute (12) Hypertension Priority: Secondary Status: Chronic - Respiratory Orders Smoking Cessation: Smoking cessation has been advised. For more information, call the [place] Tobacco Quit Line at 5-404-IJYE-NOW. - Services Needed Following services are medically necessary services: Nursing, Home Health Aide, Physical Therapy, Occupational Therapy - Transfer Medications Prescriptions: amLODIPine [Norvasc] 10 mg PO DAILY #30 tablet Isosorbide MONOnitrate (24 HR) [Imdur] 30 mg PO DAILY #30 tab.er.24h Home Medications: Clopidogrel [Plavix] 75 mg PO DAILY 05/11/15 [History] Omeprazole [PriLOSEC] 20 mg PO BID 05/11/15 [History] Colestipol HCl [Colestid] 1 gm PO BID 06/12/15 [History] Carvedilol 12.5 mg PO BID 10/28/15 [History] Calcium Acetate [Phos-LO] 1,334 mg PO TIDWM 09/06/16 [History] Folic Acid/Vit Bcomp,C [Renal Vitamin Tablet] 0.8 mg PO DAILY 04/15/17 [History] ARIPiprazole [Abilify] 10 mg PO DAILY 09/13/17 [History] Amitriptyline HCl 100 mg PO HS 09/13/17 [History] Aspirin Enteric Coated [Aspirin EC] 81 mg PO DAILY 09/13/17 [History] Budesonide/Formoterol 160/4.5 [Symbicort 160/4.5] 2 puff IH BIDR 09/13/17 [ History] Cholecalciferol (Vitamin D3) [Vitamin D3] 50,000 unit PO TH 09/13/17 [History] Lidocaine/Prilocaine CREAM [Emla] 1 appl TP AD PRN 09/13/17 [History] OxyCODONE ER (12 HR) [OxyCONTIN] 20 mg PO Q12HR 09/13/17 [History] OxyCODONE/APAP 10/325 [Percocet 10/325 MG] 1 tab PO Q6H PRN 09/13/17 [History] Oxygen 2 l NS AD 09/13/17 [History] Sennosides [Senna] 8.6 mg PO BID 09/13/17 [History] Sevelamer [Renvela] 800 mg PO TIDWM 09/13/17 [History] Albuterol Neb [AccuNeb] 0.63 mg IH Q6H PRN 10/18/17 [History] Gabapentin [Neurontin] 100 mg PO TID #60 capsule 10/21/17 [Rx] Rosuvastatin [Crestor] 10 mg PO HS #15 tablet 10/21/17 [Rx] Docusate Sodium [Colace] 100 mg PO BID #60 capsule 10/26/17 [Rx] metOLazone [Zaroxolyn] 1 tab PO DAILY 10/26/17 [History] Collagenase Oint [Santyl] 1 appl TP AD 11/11/17 [History] Oxybutynin [Ditropan] 5 mg PO TID 11/11/17 [History] Insulin DETEMIR [Levemir] 20 unit SQ DAILY [id number] 11/19/17 [Rx] Insulin DETEMIR [Levemir] 20 unit SQ HS [id number] 11/19/17 [Rx] Isosorbide MONOnitrate (24 HR) [Imdur] 30 mg PO DAILY #30 tab.er.24h 11/19/17 [ Rx] amLODIPine [Norvasc] 10 mg PO DAILY #30 tablet 11/19/17 [Rx] Allergies/Adverse Reactions: 3 Allergy/AdvReac Type Severity Reaction Status Date / Time No Known Allergies Allergy Verified 11/11/17 11:44 Certification: Further, I certify that my clinical findings support that this patient is homebound (i.e. absences from home require considerable and taxing effort and are for medical reasons or anabaptism services or infrequently or short duration when for other reasons) because: Homebound Reason: Patient requires assistance of a person or device to safely leave home Attestation: My signature below is to certify that this patient is under my care and that I, or nurse practitioner, or a physician's assistant finance director working with me, has a face-to -face encounter with this patient.
--- NOTE | 2017-11-20 13:52 | Internal Med Progress Note ---
Date of Encounter: 11/20/17 Time of Encounter: 13:10 - Assessment and plan (1) Chest pain Current Visit: Yes Status: Resolved Qualifiers: Chest pain type: other chest pain Qualified Code(s): R07.89 - Other chest pain; R07.8 - Other chest pain (2) DVT prophylaxis Current Visit: Yes Status: Acute (3) Influenza A Current Visit: Yes Status: Acute (4) Sacral decubitus ulcer, stage II Current Visit: Yes Status: Acute (5) CAD (coronary artery disease) Current Visit: Yes Status: Chronic Qualifiers: Coronary Disease-Associated Artery/Lesion type: [place] artery [place] vs. 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 of insulin (7) ESRD (end stage renal disease) on dialysis Current Visit: Yes Status: Chronic (8) Acute and chronic respiratory failure Current Visit: No Status: Acute Qualifiers: Respiratory failure complication: hypoxia Qualified Code(s): J96.21 - Acute and chronic respiratory failure with hypoxia (9) Acute exacerbation of chronic obstructive airways disease Current Visit: No Status: Acute (10) UTI (urinary tract infection) Current Visit: No Status: Acute Qualifiers: Urinary tract infection type: site unspecified Hematuria presence: with hematuria Qualified Code(s): N39.0 - Urinary tract infection, site not specified; R31.9 - Hematuria, unspecified; R31.9 - Hematuria, unspecified (11) Congestive heart failure Current Visit: Yes Status: Acute Qualifiers: Heart failure type: unspecified Heart failure chronicity: acute on chronic Qualified Code(s): I50.9 - Heart failure, unspecified (12) Hypertension Current Visit: Yes Status: Chronic Qualifiers: Hypertension type: essential hypertension Qualified Code(s): I10 - Essential (primary) hypertension - Subjective Interval history: Pt seen and examined at bedside. Sitting in bed and denies any discomfort. Pt was discharged to home yesterday as she continued to refuse ECF or inpatient swing bed placement She did not leave for unclear reasons. Pt will be discharged to home today with continuation of her home health services. - Constitutional Vitals: Temp Pulse Resp BP Pulse Ox 98.3 F 71 16 127/65 97 11/20/17 10:57 11/20/17 10:57 11/20/17 10:57 11/20/17 10:57 11/20/17 10:57 General appearance: Present: cooperative, A&O X 3, pleasant, no acute distress, obese, answers questions appropriately - Head Head exam: Present: atraumatic, normocephalic - Eye Eye exam: Present: conjuntiva pink, sclera anicteric - Respiratory Respiratory exam: Absent: respiratory distress, wheezes - Cardiovascular Cardiovascular exam: Present: RRR, +S1, +S2. Absent: diastolic murmur, gallop, rubs, systolic murmur - GI/Abdominal GI/Abdominal exam: Present: normal bowel sounds, soft, no peritoneal signs. Absent: distended, tenderness - Extremities Exam Extremities exam: Present: warm, radial pulses palpable and symmetrical. Absent : calf tenderness Internal Medicine: Result - Labs CBC & Chem 7: 11/20/17 04:20 11/20/17 04:20 Labs: Short CBC 11/20/17 Range/Units 04:20 WBC 12.1 H (4.3-11.1) K/mcL Hgb 10.0 L (11.5-15.4) g/dL Hct 32.1 L (35.3-44.9) % Plt Count 194 (140-400) K/mcL BMP 11/20/17 04:20 Sodium 131 L Potassium 4.0 Chloride 91 L Carbon Dioxide 30 H BUN 40 H Creatinine 3.00 H Glucose 189 H Calcium 9.1 - ABG Interpretation ABG results: PT/INR, D-dimer PT 11.9 Seconds (9.4-12.1) 11/19/17 13:42 D-Dimer 855 ng/mLFEU (0-500) H 11/11/17 16:22 Consult Discharge Plan - Plan Additional Instructions: Please follow up with your primary care physician within five days after your discharge from the hospital. Please continue your hemodialysis sessions as per your primary chemical processing laborer. Please follow up with cardiology within one to two weeks after your discharge from the hospital. Your home dose of Amlodipine has been increased to 10mg once a day. Imdur 30 mg once a day has been added to your home medications. Your home dose of insulin has been changed. Levemir has been decreased to 20 units twice a day. Humalog has been discontinued. Closely monitor your blood glucose at home. Resume all other medications as prescribed by your primary care physician. Referrals: Tristen Quintana MD [Primary Care Provider] - 11/23/17 1:45 pm (please follow up as schedule...) Prescriptions: amLODIPine [Norvasc] 10 mg PO DAILY #30 tablet Isosorbide MONOnitrate (24 HR) [Imdur] 30 mg PO DAILY #30 tab.er.24h
== END 2017-11-20 14:58 | disposition home health service (06) | DRG 252 ==
LOC: EMEROO 11:36 → 2ANU 11:36
PROVIDERS: ADMIT Internal Medicine Cardiovascular Disease; ATTEND Internal Medicine

== ENCOUNTER 2017-11-25 11:45 | Inpatient (IN) ==
[2017-11-25] MEDS ORDERED: 0.9 % Sodium Chloride 1,000 ML IVC ONE ×2 (11:52→13:53)
--- NOTE | 2017-11-25 12:12 | Emergency Department Note ---
Disposition Clinical Impression: Hyperglycemia UTI (urinary tract infection) Qualifiers: Urinary tract infection type: acute cystitis Hematuria presence: with hematuria Qualified Code(s): N30.01 - Acute cystitis with hematuria Disposition: Admitted As Inpatient Condition: Good Time of Disposition: 14:17 General Adult HPI - General Chief complaint: ED General Medical Stated complaint: Hyperglycemia Time Seen by Provider: 11/25/17 11:49 Source: patient, EMS Mode of arrival: EMS Limitations: no limitations Nursing Notes Reviewed: Yes Vital Signs Reviewed: Yes - History of Present Illness HPI Narrative: 62-year-old female with multiple issues including end-stage renal disease on dialysis and diabetes presenting to the emergency department via EMS for chief complaint of hyperglycemia. Patient states for the last few weeks she has had difficulty controlling her glucose. Last week it got as low as 30. This morning when she woke up she checked her glucose and it was too high to read and she called EMS. When she went to bed last night it was 150. She denies any recent illnesses and she denies any fever, nausea, vomiting or diarrhea. She denies abdominal pain, chest pain or shortness of breath. Patient denies any recent changes in her medications. Her only chief complaint at this time is exceeding the dry mouth. Patient otherwise feeling fine. Pain Scale: 0 - Related Data Home Medications Medication Instructions Recorded Confirmed Clopidogrel [Plavix] 75 mg PO DAILY 05/11/15 11/25/17 Omeprazole [PriLOSEC] 20 mg PO BID 05/11/15 11/25/17 Colestipol HCl [Colestid] 1 gm PO BID 06/12/15 11/25/17 Carvedilol 12.5 mg PO BID 10/28/15 11/25/17 Calcium Acetate [Phos-LO] 1,334 mg PO TIDWM 09/06/16 11/25/17 Folic Acid/Vit Bcomp,C [Renal 0.8 mg PO DAILY 04/15/17 11/25/17 Vitamin Tablet] ARIPiprazole [Abilify] 10 mg PO DAILY 09/13/17 11/25/17 Amitriptyline HCl 100 mg PO HS 09/13/17 11/25/17 Aspirin Enteric Coated [Aspirin EC] 81 mg PO DAILY 09/13/17 11/25/17 Budesonide/Formoterol 160/4.5 2 puff IH BIDR 09/13/17 11/25/17 [Symbicort 160/4.5] Cholecalciferol (Vitamin D3) 50,000 unit PO TH 09/13/17 11/25/17 [Vitamin D3] Lidocaine/Prilocaine CREAM [Emla] 1 appl TP AD PRN 09/13/17 11/25/17 OxyCODONE/APAP 10/325 [Percocet 1 tab PO Q6H PRN 09/13/17 11/25/17 10/325 MG] Oxygen 2 l NS AD 09/13/17 11/25/17 Sennosides [Senna] 8.6 mg PO BID 09/13/17 11/25/17 Sevelamer [Renvela] 800 mg PO TIDWM 09/13/17 11/25/17 Albuterol Neb [AccuNeb] 0.63 mg IH Q6H PRN 10/18/17 11/25/17 metOLazone [Zaroxolyn] 1 tab PO DAILY 10/26/17 11/25/17 Collagenase Oint [Santyl] 1 appl TP AD 11/11/17 11/25/17 Oxybutynin [Ditropan] 5 mg PO TID 11/11/17 11/25/17 Insulin LISPRO [Humalog Kwikpen 35 unit SQ ACHS 11/25/17 11/25/17 U-100] Morphine Sulfate SR (12 HR) [MS 1 tab PO Q12HR 11/25/17 11/25/17 Contin] Previous Rx's Medication Instructions Recorded Gabapentin [Neurontin] 100 mg PO TID #60 capsule 10/21/17 Rosuvastatin [Crestor] 10 mg PO HS #15 tablet 10/21/17 Docusate Sodium [Colace] 100 mg PO BID #60 capsule 10/26/17 Isosorbide MONOnitrate (24 HR) 30 mg PO DAILY #30 tab.er.24h 11/19/17 [Imdur] amLODIPine [Norvasc] 10 mg PO DAILY #30 tablet 11/19/17 Allergies Allergy/AdvReac Type Severity Reaction Status Date / Time No Known Allergies Allergy Verified 11/24/17 09:01 All systems ED: reviewed and negative except as stated. Constitutional: Denies: fever, chills, weakness Cardiovascular: Denies: chest pain, palpitations Respiratory: Denies: cough, dyspnea, wheezes Gastrointestinal: Denies: abdominal pain, nausea, vomiting Neurological: Denies: weakness, numbness, paresthesias Past Medical History - Past Medical History Attestation: Yes The following information was validated with the patient. 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 Absent: scleral icterus, conjunctival injection - ENT ENT exam: other (Patient mucous membranes extremely dry along with a fissured tongue) - Neck Neck exam: Present: normal inspection. Absent: tenderness, meningismus - Chest Chest inspection: Present: normal inspection, symmetric chest wall rise. Absent : tenderness, rash - Respiratory Respiratory exam: Present: normal lung sounds bilaterally. Absent: respiratory distress, wheezes - Cardiovascular Cardiovascular exam: Present: regular rate, normal rhythm, normal heart sounds - Abdominal Exam Abdominal exam: Present: soft, Non-Tender. Absent: distention, guarding, rebound - Extremities Exam Extremities exam: Present: full ROM - Neurological Exam Neurological exam: Present: alert, oriented X3 - Psychiatric Psychiatric exam: Present: normal affect, normal mood - Skin Skin exam: Present: warm, intact Course Course Narrative: 62-year-old female presenting to the emergency Department chief complaint of hyperglycemia. Patient is alert and oriented 3 in the room with stable vital signs. [id number] glucose greater than 500. Patient does have end-stage renal disease we will provide her with 1 L of fluid along with basic lab work, UA. Disposition most likely admission pending results. Patient agrees with this plan. - Reevaluation(s) Reevaluation #1: Patient has elevated white blood cell count at 16.4. While obtaining urine a reddish pus filled urine came out. Foul-smelling. Patient has history of multiple drug resistant urinary tract infections. Previous micro-was sensitive to me or open them. We will start the patient on meropenem at this time and admit the patient for hyperglycemia and urinary tract infection. Patient is alert and oriented 3 and room with stable vital signs at this time. She agrees with this plan. I spoke with the hospitalist Dr. Hammond who agrees to accept the patient at this time. Vital Signs Temperature 98.6 F 11/25/17 11:49 Pulse Rate 92 11/25/17 11:49 Respiratory Rate 18 11/25/17 11:49 Blood Pressure 155/87 11/25/17 11:49 O2 Sat by Pulse Oximetry 95 11/25/17 11:49 Temperature 98.1 F 11/25/17 16:51 Pulse Rate 83 11/25/17 16:51 Respiratory Rate 16 11/25/17 16:51 Blood Pressure 124/72 11/25/17 16:51 O2 Sat by Pulse Oximetry 97 11/25/17 16:51 Oxygen Delivery Oxygen Delivery Room Air Medical Decision Making - Lab Data Result diagrams: 11/25/17 12:21 11/25/17 12:21 Lab Results 11/25/17 11/25/17 11/25/17 Range/Units 11:50 11:51 12:21 WBC 16.4 H (4.3-11.1) K/mcL RBC 3.26 L (3.82-4.97) M/mcL Hgb 8.9 L D (11.5-15.4) g/dL Hct 28.3 L (35.3-44.9) % MCV 86.8 (83.0-100.0) fL MCH 27.3 L (28.0-33.3) pg MCHC 31.4 L (31.6-35.5) g/dL RDW 15.6 H (11.5-14.5) % Plt Count 270 (140-400) K/mcL MPV 9.7 (9.4-12.4) fL Immature Gran % 1.8 (0-4) % Seg Neutrophils % 80.9 % Lymphocytes % 8.9 % Monocytes % 6.8 % Eosinophils % 1.1 % Basophils % 0.5 % Neutrophils # 13.3 H (1.6-8.9) K/mcL Lymphocytes # 1.5 (0.6-4.6) K/mcL Monocytes # 1.1 (0.0-1.3) K/mcL Eosinophils # 0.2 (0.0-0.6) K/mcL Basophils # 0.1 (0.0-0.2) K/mcL Sodium (136-145) mEq/L Potassium (3.5-5.1) mEq/L Chloride (98-107) mEq/L Carbon Dioxide (23-29) mEq/L BUN (8-23) mg/dL Creatinine (0.60-1.20) mg/dL Est GFR ( Amer) (> 60) Est GFR (Non-Af Amer) (> 60) BUN/Creatinine Ratio (6-26) Glucose (70-105) mg/dL POC Glucose 598 H* 565 H* (58-89) Calculated Osmolality (280-300) Calcium (8.6-10.3) mg/dL Magnesium (1.6-2.6) mg/dL Troponin I (< 0.04) ng/mL Beta-Hydroxybutyric Acd (0.02-0.27) mmol/L 11/25/17 11/25/17 11/25/17 Range/Units 12:21 12:21 12:21 WBC (4.3-11.1) K/mcL RBC (3.82-4.97) M/mcL Hgb (11.5-15.4) g/dL Hct (35.3-44.9) % MCV (83.0-100.0) fL MCH (28.0-33.3) pg MCHC (31.6-35.5) g/dL RDW (11.5-14.5) % Plt Count (140-400) K/mcL MPV (9.4-12.4) fL Immature Gran % (0-4) % Seg Neutrophils % % Lymphocytes % % Monocytes % % Eosinophils % % Basophils % % Neutrophils # (1.6-8.9) K/mcL Lymphocytes # (0.6-4.6) K/mcL Monocytes # (0.0-1.3) K/mcL Eosinophils # (0.0-0.6) K/mcL Basophils # (0.0-0.2) K/mcL Sodium 124 L (136-145) mEq/L Potassium 3.0 L (3.5-5.1) mEq/L Chloride 87 L (98-107) mEq/L Carbon Dioxide 23 (23-29) mEq/L BUN 30 H (8-23) mg/dL Creatinine 3.08 H (0.60-1.20) mg/dL Est GFR ( Amer) 19 L (> 60) Est GFR (Non-Af Amer) 15 L (> 60) BUN/Creatinine Ratio 10 (6-26) Glucose 507 H* (70-105) mg/dL POC Glucose (58-89) Calculated Osmolality 287 (280-300) Calcium 9.0 (8.6-10.3) mg/dL Magnesium 1.5 L (1.6-2.6) mg/dL Troponin I (< 0.04) ng/mL Beta-Hydroxybutyric Acd < 0.01 L (0.02-0.27) mmol/L 11/25/17 11/25/17 11/25/17 Range/Units 12:21 12:45 12:46 WBC (4.3-11.1) K/mcL RBC (3.82-4.97) M/mcL Hgb (11.5-15.4) g/dL Hct (35.3-44.9) % MCV (83.0-100.0) fL MCH (28.0-33.3) pg MCHC (31.6-35.5) g/dL RDW (11.5-14.5) % Plt Count (140-400) K/mcL MPV (9.4-12.4) fL Immature Gran % (0-4) % Seg Neutrophils % % Lymphocytes % % Monocytes % % Eosinophils % % Basophils % % Neutrophils # (1.6-8.9) K/mcL Lymphocytes # (0.6-4.6) K/mcL Monocytes # (0.0-1.3) K/mcL Eosinophils # (0.0-0.6) K/mcL Basophils # (0.0-0.2) K/mcL Sodium (136-145) mEq/L Potassium (3.5-5.1) mEq/L Chloride (98-107) mEq/L Carbon Dioxide (23-29) mEq/L BUN (8-23) mg/dL Creatinine (0.60-1.20) mg/dL Est GFR ( Amer) (> 60) Est GFR (Non-Af Amer) (> 60) BUN/Creatinine Ratio (6-26) Glucose (70-105) mg/dL POC Glucose 481 H* 471 H* (58-89) Calculated Osmolality (280-300) Calcium (8.6-10.3) mg/dL Magnesium (1.6-2.6) mg/dL Troponin I < 0.03 (< 0.04) ng/mL Beta-Hydroxybutyric Acd (0.02-0.27) mmol/L 11/25/17 Range/Units 13:58 WBC (4.3-11.1) K/mcL RBC (3.82-4.97) M/mcL Hgb (11.5-15.4) g/dL Hct (35.3-44.9) % MCV (83.0-100.0) fL MCH (28.0-33.3) pg MCHC (31.6-35.5) g/dL RDW (11.5-14.5) % Plt Count (140-400) K/mcL MPV (9.4-12.4) fL Immature Gran % (0-4) % Seg Neutrophils % % Lymphocytes % % Monocytes % % Eosinophils % % Basophils % % Neutrophils # (1.6-8.9) K/mcL Lymphocytes # (0.6-4.6) K/mcL Monocytes # (0.0-1.3) K/mcL Eosinophils # (0.0-0.6) K/mcL Basophils # (0.0-0.2) K/mcL Sodium (136-145) mEq/L Potassium (3.5-5.1) mEq/L Chloride (98-107) mEq/L Carbon Dioxide (23-29) mEq/L BUN (8-23) mg/dL Creatinine (0.60-1.20) mg/dL Est GFR ( Amer) (> 60) Est GFR (Non-Af Amer) (> 60) BUN/Creatinine Ratio (6-26) Glucose (70-105) mg/dL POC Glucose 373 H (58-89) Calculated Osmolality (280-300) Calcium (8.6-10.3) mg/dL Magnesium (1.6-2.6) mg/dL Troponin I (< 0.04) ng/mL Beta-Hydroxybutyric Acd (0.02-0.27) mmol/L - EKG Data EKG #1 EKG attestation: Yes I reviewed and interpreted this EKG. EKG results narrative: Sinus rhythm with first-degree AV block. 85 bpm. MO interval 218, QRS 99, QTC 420. Nonspecific T wave abnormality in V1. No signs of acute ST segment elevation or ischemia noted. Attestation Statement - Attestation Attestation: I, Lenny Li, examined this patient and my medical decision-making was reviewed with the SHOVEL LOGGER/PA/Advanced Practice Nurse/Resident Physician. I agree with the documented findings, disposition and treatment plan as described except to the extent set forth below. 62-year-old female presents emergency Department with concerns of hyperglycemia. Patient states her blood sugar was around 150 last night prior to going to bed this morning she woke up and her glucometer read "high". Patient was recently diagnosed with a urinary tract infection. She has a history of multidrug resistant urinary tract infections. Patient is afebrile emergency department. Her urinalysis was unable to be read because it appeared to be too purulent. Patient is clinically dry on exam with a dry and fissured tongue. Patient given IV fluids in the emergency department. She took insulin prior to arrival. She denies missing any of her medications. Denies other nausea, vomiting, chest pain, shortness of breath, palpitations. Patient likely has urinary tract infection. She will be admitted to the hospital for further care and evaluation and management of her diabetes.
[2017-11-25 12:33] LABS: Basophils # 0.1 K/mcL (0.0-0.2); Basophils % 0.5 %; Eosinophils # 0.2 K/mcL (0.0-0.6); Eosinophils % 1.1 %; Hematocrit 28.3 % (35.3-44.9); Hemoglobin 8.9 g/dL (11.5-15.4); Immature Granulocytes % 1.8 % (0-4); Lymphocytes # 1.5 K/mcL (0.6-4.6); Lymphocytes % 8.9 %; Mean Corpuscular HGB Conc 31.4 g/dL (31.6-35.5); Mean Corpuscular Hemoglobin 27.3 pg (28.0-33.3); Mean Corpuscular Volume 86.8 fL (83.0-100.0); Mean Platelet Volume 9.7 fL (9.4-12.4); Monocytes # 1.1 K/mcL (0.0-1.3); Monocytes % 6.8 %; Neutrophils # 13.3 K/mcL (1.6-8.9); Platelet Count 270 K/mcL (140-400); Red Blood Count 3.26 M/mcL (3.82-4.97); Red Cell Distribution Width 15.6 % (11.5-14.5); Segmented Neutrophils % 80.9 %
[2017-11-25] MEDS ORDERED: Meropenem 1,000 MG in 0.9 % Sodium Chloride Mini Bag 100 ML IVPB STA (13:41)
[2017-11-25] MEDS ORDERED: Potassium Chloride Elixir 20 MEQ/15 ML UDC PO ONE (13:55)
[2017-11-25] MEDS ORDERED: Meropenem 1,000 MG in Water for inj. (sterile) 20 ML 10 ML IVP STA (14:37)
[2017-11-25] MEDS ORDERED: D5% in Water 1,000 ML IVC PRN (16:47)
[2017-11-25] MEDS ORDERED: *HR* Dextrose 50 % in Water (Syg) 50 ML SYRINGE IVP PRN (16:47)
[2017-11-25] MEDS ORDERED: Dextrose Gel 15 GM/37.5 ML TUBE PO PRN ×2 (16:47)
[2017-11-25] MEDS ORDERED: *HR* OxyCODONE/APAP 10/325 TABLET PO PRN (17:24)
[2017-11-25] MEDS: Insulin LISPRO 300 UNITS/3 ML VIAL SQ SCH ×2 (17:25→22:07)
--- NOTE | 2017-11-25 17:37 | Internal Med History&Physical ---
Date of Encounter: 11/25/17 Time of Encounter: 17:34 Assessment and Plan (1) UTI (urinary tract infection) Current visit: Yes Status: Acute Urinary tract infection History of ESBL organisms including Escherichia coli and Klebsiella Continue meropenem, follow-up report of urine culture Omeprazole for GI prophylaxis and subcutaneous tinzaparin for DVT prophylaxis. The patient will be admitted for observation. She wishes to be a DNR CC arrest DNI. Time spent on this admission 40 minutes Qualifiers: Urinary tract infection type: acute cystitis Hematuria presence: with hematuria Qualified Code(s): N30.01 - Acute cystitis with hematuria (2) 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 Current visit: Yes Status: Acute (3) Hyperglycemia Current visit: Yes Status: Acute Uncontrolled diabetes type 2 History of hypoglycemia, to start Levemir 5 units at night and insulin sliding scale, we will adjust insulin requirements (4) CAD (coronary artery disease) Current visit: No Status: Chronic Continue aspirin Qualifiers: Coronary Disease-Associated Artery/Lesion type: [place] artery [place] vs. transplanted heart: [place] heart Associated angina: without angina Qualified Code(s): I25.10 - Atherosclerotic heart disease of [place] coronary artery without angina pectoris (5) Diastolic CHF Current visit: No Status: Chronic Received IV fluids in the emergency room next Continue metolazone as the patient is overloaded Qualifiers: Qualified Code(s): I50.32 - Chronic diastolic (congestive) heart failure (6) ESRD (end stage renal disease) on dialysis Current visit: No Status: Chronic Consult Dr. Rivers to continue dialyses (7) HTN (hypertension) Current visit: No Status: Chronic Stable Qualifiers: Hypertension type: essential hypertension Qualified Code(s): I10 - Essential (primary) hypertension (8) Morbid obesity with BMI of 45.0-49.9, adult Current visit: No Status: Chronic (9) Hyponatremia Current visit: No Status: Resolved Pseudohyponatremia secondary to hyperglycemia Internal Medicine - H&P: HPI Chief complaint: Elevated glucose Admitted From: Emergency Dept History of present illness: Ms. Riley is a 62 year old female with a past medical history of end-stage renal disease on hemodialysis still making urine, diabetes type 2 insulin- dependent, COPD not oxygen dependent, CAD status post CABG, GI bleed, multiple episodes of urinary tract infections with ESBL Escherichia coli in multidrug resistant organisms including ESBL Klebsiella. The patient was recently discharged on 11/19/2017 which she was evaluated for chest pain. She came to the emergency room complaining of an very elevated glucose, just last week she had hypoglycemia in the low 30s, she uses only Humalog sliding scale at home and lately, her sugars have been in the 400s and her machine has not been able to read her glucose due to very elevated values. I blood cell count today 16.4 hemoglobin has dropped from a value of 10.6 down to 8.9. Sodium is 124 potassium is 3 chloride 87 magnesium 1.5, glucose is 507, creatinine 3.08 at baseline. She has dialyses Wednesdays and Fridays. Blood pressure is 155/87. The patient has been complaining of foul smelling urine, dysuria, she makes about a cup of urine every day. None quantified fevers. Mild abdominal pain. Was given 1 dose of meropenem at the emergency room. Past Med Surg Social Fam HX - Past Medical History Medical history: COPD (Not oxygen dependent), coronary artery disease (Status post stents and CABG), CVA, DVT, dialysis (End-stage renal disease, followed by Dr. Rivers, dialyses Wednesdays and Fridays), GERD, GI bleed, hyperlipidemia, hypertension, peripheral artery disease, other (Neuropathy, UTIs with Klebsiella and Escherichia coli ESBL, tobacco use, sacral ulcer stage II, osteoarthritis, depression) Psychiatric history: anxiety, depression, schizophrenia, previous psychiatric hospitalization, other - Past Surgical History Surgical History: angioplasty/stent, appendectomy, cholecystectomy, coronary bypass (CABG), hysterectomy, knee replacement, other, IVC filter - Social History Smoking Status: Current every day smoker Packs per day: 1 pack per day Smokeless Tobacco Status: No Alcohol use: none Drug use: none - Family History Father Family Member Ethnicity: Non- Living Status: Hx Family Cardiac Disorders: Yes (CAD, [place]) Hx Family Cancer: Yes (Polycythemia) Hx Family Endocrine Disorder: Yes (DM) Mother Family Member Ethnicity: Non- Living Status: Still Living Hx Family Respiratory Disorders: Yes (End stage COPD) Brother Family Member Ethnicity: Non- Living Status: Still Living Sister Adopted: No Age: 61 Family Member Ethnicity: Non- Living Status: Still Living Hx Family Cardiac Disorders: No Hx Family Respiratory Disorders: No Hx Family Cancer: No Hx Family GI Disorders: No Hx Family Genitourinary Disorders: No Hx Family Endocrine Disorder: No Hx Family Musculoskeletal Disorders: No Hx Family Neuromuscular Disorders: No Hx Family Neurologic Disorders: No Hx Family HEENT Disorders: No Hx Family Autoimmune Disorders: No Hx Family Reproductive Disorders: No Hx Family Psychosocial Disorders: No Hx Family Medical Disorders: No - Additional Family History Additional family history: Father with diabetes and hypertension, sister with diabetes, mother with hypertension and heart disease Internal Medicine - H&P: Meds Clopidogrel [Plavix] 75 mg PO DAILY 05/11/15 [History] Omeprazole [PriLOSEC] 20 mg PO BID 05/11/15 [History] Colestipol HCl [Colestid] 1 gm PO BID 06/12/15 [History] Carvedilol 12.5 mg PO BID 10/28/15 [History] Calcium Acetate [Phos-LO] 1,334 mg PO TIDWM 09/06/16 [History] Folic Acid/Vit Bcomp,C [Renal Vitamin Tablet] 0.8 mg PO DAILY 04/15/17 [History] ARIPiprazole [Abilify] 10 mg PO DAILY 09/13/17 [History] Amitriptyline HCl 100 mg PO HS 09/13/17 [History] Aspirin Enteric Coated [Aspirin EC] 81 mg PO DAILY 09/13/17 [History] Budesonide/Formoterol 160/4.5 [Symbicort 160/4.5] 2 puff IH BIDR 09/13/17 [ History] Cholecalciferol (Vitamin D3) [Vitamin D3] 50,000 unit PO TH 09/13/17 [History] Lidocaine/Prilocaine CREAM [Emla] 1 appl TP AD PRN 09/13/17 [History] OxyCODONE/APAP 10/325 [Percocet 10/325 MG] 1 tab PO Q6H PRN 09/13/17 [History] Oxygen 2 l NS AD 09/13/17 [History] Sennosides [Senna] 8.6 mg PO BID 09/13/17 [History] Sevelamer [Renvela] 800 mg PO TIDWM 09/13/17 [History] Albuterol Neb [AccuNeb] 0.63 mg IH Q6H PRN 10/18/17 [History] Gabapentin [Neurontin] 100 mg PO TID #60 capsule 10/21/17 [Rx] Rosuvastatin [Crestor] 10 mg PO HS #15 tablet 10/21/17 [Rx] Docusate Sodium [Colace] 100 mg PO BID #60 capsule 10/26/17 [Rx] metOLazone [Zaroxolyn] 1 tab PO DAILY 10/26/17 [History] Collagenase Oint [Santyl] 1 appl TP AD 11/11/17 [History] Oxybutynin [Ditropan] 5 mg PO TID 11/11/17 [History] Isosorbide MONOnitrate (24 HR) [Imdur] 30 mg PO DAILY #30 tab.er.24h 11/19/17 [ Rx] amLODIPine [Norvasc] 10 mg PO DAILY #30 tablet 11/19/17 [Rx] Insulin LISPRO [Humalog Kwikpen U-100] 35 unit SQ ACHS 11/25/17 [History] Morphine Sulfate SR (12 HR) [MS Contin] 1 tab PO Q12HR 11/25/17 [History] 3 Allergy/AdvReac Type Severity Reaction Status Date / Time No Known Allergies Allergy Verified 11/24/17 09:01 All Systems PM: A 10-system review of systems was performed and is negative for pertinent findings except as documented above in the HPI. Review of systems: No chest pain shortness of breath. Feeling weak, other systems out of the 10 reviewed were negative - Constitutional Vitals: Temp Pulse Resp BP Pulse Ox 98.1 F 83 16 124/72 97 11/25/17 16:51 11/25/17 16:51 11/25/17 16:51 11/25/17 16:51 11/25/17 16:51 General appearance: Present: A&O X 3 - Head Head exam: Present: atraumatic, normocephalic - Eye Eye exam: Present: PERRL, conjuntiva pink, sclera anicteric Pupils: Present: PERRL - Neck Neck exam general surgery: Present: supple, trachea midline. Absent: lymphadenopathy - Respiratory Respiratory exam: Present: CTAB, rales (Bibasilar crackles). Absent: accessory muscle use, rhonchi, wheezes - Cardiovascular Cardiovascular exam: Present: RRR, +S1, +S2. Absent: diastolic murmur, gallop, rubs, systolic murmur - GI/Abdominal GI/Abdominal exam: Present: distended, normal bowel sounds, soft, no peritoneal signs. Absent: tenderness - Extremities Exam Extremities exam: Present: pedal edema (+1 pitting edema in both lower extremities), warm, radial pulses palpable and symmetrical. Absent: calf tenderness, cyanotic Additional comments: AV fistula in left upper extremity with good thrill - Neurological Exam Neurological exam: Present: CN II-XII intact, oriented X3, no focal deficits. Absent: pronater drift, facial droop, speech deficit - Skin Skin exam: Present: dry, intact Internal Med - H&P Results - Labs CBC & Chem 7: 11/25/17 12:21 11/25/17 12:21
[2017-11-25] MEDS ORDERED: Acetaminophen 325 MG TABLET PO PRN (17:45)
[2017-11-25] MEDS ORDERED: Ipratropium/Albuterol Neb 3 ML IH PRN (17:45)
[2017-11-25] MEDS: Insulin DETEMIR 100 UNIT/ML X5UNITS SQ SCH ×2 (17:55→22:09)
[2017-11-25] MEDS: *HR* Morphine Sulfate SR (12 HR) 30 MG TABLET.ER PO SCH (18:13)
[2017-11-25] MEDS: metOLazone 2.5 MG TABLET PO SCH (18:13)
[2017-11-25] MEDS: *HR* Heparin 5,000 UNIT/ML VIAL SQ SCH (18:19)
[2017-11-25] MEDS ORDERED: (Colestipol Hcl [Colestid] 1 GM) PO SCH (21:00)
[2017-11-25] MEDS: Gabapentin 100 MG CAPSULE PO SCH (22:07)
[2017-11-26] MEDS ORDERED: Meropenem 500 MG in Water for inj. (sterile) 10 ML IVP SCH ×2 (04:00→17:00)
[2017-11-26] MEDS: *HR* Morphine Sulfate SR (12 HR) 30 MG TABLET.ER PO SCH ×2 (05:10→17:32)
[2017-11-26] MEDS: *HR* Heparin 5,000 UNIT/ML VIAL SQ SCH ×2 (05:14→17:53)
[2017-11-26 05:25] LABS: Hematocrit 28.7 % (35.3-44.9); Hemoglobin 8.9 g/dL (11.5-15.4); Mean Corpuscular Hemoglobin 27.2 pg (28.0-33.3); Mean Corpuscular Volume 87.8 fL (83.0-100.0); Mean Platelet Volume 9.8 fL (9.4-12.4); Platelet Count 253 K/mcL (140-400); Red Blood Count 3.27 M/mcL (3.82-4.97); Red Cell Distribution Width 15.7 % (11.5-14.5)
[2017-11-26 06:11] LABS: Calcium 8.6 mg/dL (8.6-10.3)
[2017-11-26] MEDS ORDERED: 0.9 % Sodium Chloride 250 ML IVC PRN (06:22)
[2017-11-26] MEDS ORDERED: Insulin LISPRO 300 UNITS/3 ML VIAL SQ SCH (07:30)
[2017-11-26] MEDS: ARIPiprazole 10 MG TABLET PO SCH (08:25)
[2017-11-26] MEDS: Gabapentin 100 MG CAPSULE PO SCH ×3 (08:26→20:16)
[2017-11-26] MEDS: Calcium Acetate 667 MG CAPSULE PO SCH ×3 (08:26→17:32)
[2017-11-26] MEDS: Aspirin Enteric Coated 81 MG Tablet PO SCH (08:27)
[2017-11-26] MEDS: Nicotine 21 MG PATCH.TD24 TD SCH (08:27)
[2017-11-26] MEDS: Insulin LISPRO 300 UNITS/3 ML VIAL SQ SCH ×4 (08:27→22:14)
--- NOTE | 2017-11-26 08:37 | Internal Med Progress Note ---
Date of Encounter: 11/26/17 Time of Encounter: 08:34 - Assessment and plan (1) UTI (urinary tract infection) Current Visit: Yes Status: Acute Assessment and plan: Possible Urinary tract infection History of ESBL organisms including Escherichia coli and Klebsiella Continue meropenem day #2, repeat UA and follow-up report of urine culture Urine culture from 11/23/2017 shows mixed nick, unable to be identified but white blood cell count was extremely elevated Qualifiers: Urinary tract infection type: acute cystitis Hematuria presence: with hematuria Qualified Code(s): N30.01 - Acute cystitis with hematuria (2) 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 Current Visit: Yes Status: Acute (3) Hyperglycemia Current Visit: Yes Status: Acute Assessment and plan: Secondary to uncontrolled diabetes type 2 Continue Levemir 5 units at night and insulin sliding scale The patient uses only insulin sliding scale at home Glucose was in the 500s upon admission (4) CAD (coronary artery disease) Current Visit: No Status: Chronic Assessment and plan: Continue aspirin Qualifiers: Coronary Disease-Associated Artery/Lesion type: [place] artery [place] vs. transplanted heart: [place] heart Associated angina: without angina Qualified Code(s): I25.10 - Atherosclerotic heart disease of [place] coronary artery without angina pectoris (5) Diastolic CHF Current Visit: No Status: Chronic Assessment and plan: No exacerbation of the moment Continue metolazone Qualifiers: Qualified Code(s): I50.32 - Chronic diastolic (congestive) heart failure (6) ESRD (end stage renal disease) on dialysis Current Visit: No Status: Chronic Assessment and plan: Patient sees Dr. Rivers as an outpatient Nephrology consulted to continue dialysis (7) HTN (hypertension) Current Visit: No Status: Chronic Assessment and plan: Stable Qualifiers: Hypertension type: essential hypertension Qualified Code(s): I10 - Essential (primary) hypertension (8) Morbid obesity with BMI of 45.0-49.9, adult Current Visit: No Status: Chronic (9) Hyponatremia Current Visit: No Status: Resolved Assessment and plan: Monitor sodium Check urine sodium and urine osmolality (10) Hypokalemia Current Visit: No Status: Resolved Assessment and plan: resolved - Subjective Interval history: Very sleepy but following commands properly, still making urine and complaining of some dysuria. Denies any chest pressures or breath, no fevers overnight. No diarrhea - Constitutional Vitals: Temp Pulse Resp BP Pulse Ox 98.7 F 54 18 136/75 97 11/26/17 07:45 11/26/17 07:45 11/26/17 07:45 11/26/17 07:45 11/26/17 07:45 General appearance: Present: A&O X 3 Exam: - Head Head exam: Present: atraumatic, normocephalic - Eye Eye exam: Present: PERRL, conjuntiva pink, sclera anicteric Pupils: Present: PERRL - Neck Neck exam general surgery: Present: supple, trachea midline. Absent: lymphadenopathy - Respiratory Respiratory exam: Present: CTAB, rales (Bibasilar crackles). Absent: accessory muscle use, rhonchi, wheezes - Cardiovascular Cardiovascular exam: Present: RRR, +S1, +S2. Absent: diastolic murmur, gallop, rubs, systolic murmur - GI/Abdominal GI/Abdominal exam: Present: distended, normal bowel sounds, soft, no peritoneal signs. Absent: tenderness - Extremities Exam Extremities exam: Present: pedal edema (+1 pitting edema in both lower extremities), warm, radial pulses palpable and symmetrical. Absent: calf tenderness, cyanotic Additional comments: AV fistula in left upper extremity with good thrill - Neurological Exam Neurological exam: Present: CN II-XII intact, oriented X3, no focal deficits. Absent: pronater drift, facial droop, speech deficit - Skin Skin exam: Present: dry, intact Internal Medicine: Result - Labs CBC & Chem 7: 11/26/17 04:43 11/26/17 04:43 Labs: Short CBC 11/26/17 Range/Units 04:43 WBC 16.3 H (4.3-11.1) K/mcL Hgb 8.9 L (11.5-15.4) g/dL Hct 28.7 L (35.3-44.9) % Plt Count 253 (140-400) K/mcL [facility] 11/26/17 04:43 Sodium 125 L Potassium 4.0 D Chloride 93 L Carbon Dioxide 23 BUN 32 H Creatinine 3.39 H Glucose 195 H Calcium 8.6 Consult Discharge Plan - Plan Referrals: Tristen Quintana MD [Primary Care Provider] -
[2017-11-26 09:07] LABS: Bilirubin,Urine Large (Negative); Blood,Urine Large (Negative); Clarity,Urine Turbid (Clear); Glucose,Urine (UA) Normal (Normal); Ketones,Urine 15 mg/dL (Negative); Leukocyte Esterase,Urine Large (Negative); Nitrite,Urine Positive (Negative); Protein,Urine >=300 mg/dL (Neg-Trace); Specific Gravity,Urine 1.023 (1.010-1.025); Urobilinogen,Urine Normal (Normal)
[2017-11-26 09:17] LABS: Color,Urine Brown (Yellow)
[2017-11-26 09:33] LABS: Bacteria,Urine Many per hpf (None-Few)
[2017-11-26 09:39] LABS: RBC,Urine Present per hpf (0-3); Squamous Epithelial Cell,Urine Present per lpf (None-Few); WBC,Urine TNTC per hpf (0-3)
[2017-11-26 09:40] LABS: Hyaline Casts,Urine None Seen per lpf (None-Few)
[2017-11-26] MEDS ORDERED: 0.9 % Sodium Chloride 1,000 ML ONE (10:00)
--- NOTE | 2017-11-26 10:22 | Electrocardiograph Report ---
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
--- NOTE | 2017-11-26 12:14 | Nephrology Consult Note ---
Date of Encounter: 11/26/17 Time of Encounter: 12:00 Assessment and Plan (1) ESRD (end stage renal disease) on dialysis Current Visit: No Status: Acute Continue HD with UF as tolerated Renal diet advised Continue phoslo and renvela with meals for hyperphos (2) Hyponatremia Current Visit: No Status: Acute Sodium noted at 125 likely due to hypervolemic state, should improve with UF and HD (3) Anemia Current Visit: No Status: Chronic Hgb noted in the 8.0s, will monitor and consider EPO if lengthy stay Qualifiers: Anemia type: due to chronic kidney disease Chronic kidney disease stage: on chronic dialysis Qualified Code(s): N18.6 - End stage renal disease; D63.1 - Anemia in chronic kidney disease; Z99.2 - Dependence on renal dialysis History of Present Illness - Reason for Consult Consult date: 11/26/17 end stage renal disease, hyponatremia Requesting physician: Marcos Sen - History of Present Illness 62 y o female with PMH of CAD s/p CABG, DM, COPD, ESRD on HD, recurrent hospitalizations along with recurrent UTIs admitted overnight for what she reports is "another UTI". Pt seen and examined on HD with no immediate complaints: no chest pain or SOB. LE edema actually better than usual. Renal consulted to continue her routine dialysis while hospitalized. Past Med Surg Social Fam HX - Past Medical History Medical history: COPD (Not oxygen dependent), coronary artery disease (Status post stents and CABG), CVA, DVT, dialysis (End-stage renal disease, followed by Dr. Rivers, dialyses Wednesdays and Fridays), GERD, GI bleed, hyperlipidemia, hypertension, peripheral artery disease, other (Neuropathy, UTIs with Klebsiella and Escherichia coli ESBL, tobacco use, sacral ulcer stage II, osteoarthritis, depression) Psychiatric history: anxiety, depression, schizophrenia, previous psychiatric hospitalization, other - Past Surgical History Surgical History: angioplasty/stent, appendectomy, cholecystectomy, coronary bypass (CABG), hysterectomy, knee replacement, other, IVC filter - Social History Smoking Status: Current every day smoker Packs per day: 1 pack per day Smokeless Tobacco Status: No Alcohol use: none Drug use: none - Family History Father Family Member Ethnicity: Non- Living Status: Hx Family Cardiac Disorders: Yes (CAD, [place]) Hx Family Cancer: Yes (Polycythemia) Hx Family Endocrine Disorder: Yes (DM) Mother Family Member Ethnicity: Non- Living Status: Still Living Hx Family Respiratory Disorders: Yes (End stage COPD) Brother Family Member Ethnicity: Non- Living Status: Still Living Sister Adopted: No Age: 61 Family Member Ethnicity: Non- Living Status: Still Living Hx Family Cardiac Disorders: No Hx Family Respiratory Disorders: No Hx Family Cancer: No Hx Family GI Disorders: No Hx Family Genitourinary Disorders: No Hx Family Endocrine Disorder: No Hx Family Musculoskeletal Disorders: No Hx Family Neuromuscular Disorders: No Hx Family Neurologic Disorders: No Hx Family HEENT Disorders: No Hx Family Autoimmune Disorders: No Hx Family Reproductive Disorders: No Hx Family Psychosocial Disorders: No Hx Family Medical Disorders: No Medications and Allergies Clopidogrel [Plavix] 75 mg PO DAILY 05/11/15 [History] Omeprazole [PriLOSEC] 20 mg PO BID 05/11/15 [History] Colestipol HCl [Colestid] 1 gm PO BID 06/12/15 [History] Carvedilol 12.5 mg PO BID 10/28/15 [History] Calcium Acetate [Phos-LO] 1,334 mg PO TIDWM 09/06/16 [History] Folic Acid/Vit Bcomp,C [Renal Vitamin Tablet] 0.8 mg PO DAILY 04/15/17 [History] ARIPiprazole [Abilify] 10 mg PO DAILY 09/13/17 [History] Amitriptyline HCl 100 mg PO HS 09/13/17 [History] Aspirin Enteric Coated [Aspirin EC] 81 mg PO DAILY 09/13/17 [History] Budesonide/Formoterol 160/4.5 [Symbicort 160/4.5] 2 puff IH BIDR 09/13/17 [ History] Cholecalciferol (Vitamin D3) [Vitamin D3] 50,000 unit PO TH 09/13/17 [History] Lidocaine/Prilocaine CREAM [Emla] 1 appl TP AD PRN 09/13/17 [History] OxyCODONE/APAP 10/325 [Percocet 10/325 MG] 1 tab PO Q6H PRN 09/13/17 [History] Oxygen 2 l NS AD 09/13/17 [History] Sennosides [Senna] 8.6 mg PO BID 09/13/17 [History] Sevelamer [Renvela] 800 mg PO TIDWM 09/13/17 [History] Albuterol Neb [AccuNeb] 0.63 mg IH Q6H PRN 10/18/17 [History] Gabapentin [Neurontin] 100 mg PO TID #60 capsule 10/21/17 [Rx] Rosuvastatin [Crestor] 10 mg PO HS #15 tablet 10/21/17 [Rx] Docusate Sodium [Colace] 100 mg PO BID #60 capsule 10/26/17 [Rx] metOLazone [Zaroxolyn] 1 tab PO DAILY 10/26/17 [History] Collagenase Oint [Santyl] 1 appl TP AD 11/11/17 [History] Oxybutynin [Ditropan] 5 mg PO TID 11/11/17 [History] Isosorbide MONOnitrate (24 HR) [Imdur] 30 mg PO DAILY #30 tab.er.24h 11/19/17 [ Rx] amLODIPine [Norvasc] 10 mg PO DAILY #30 tablet 11/19/17 [Rx] Insulin LISPRO [Humalog Kwikpen U-100] 35 unit SQ ACHS 11/25/17 [History] Morphine Sulfate SR (12 HR) [MS Contin] 1 tab PO Q12HR 11/25/17 [History] 3 Allergy/AdvReac Type Severity Reaction Status Date / Time No Known Allergies Allergy Verified 11/24/17 09:01 Review of Systems All Systems: reviewed and no additional remarkable complaints except as stated ( 10 systems reviewed) Exam - Vital Signs Vital signs: Initial Vital Signs Temp Pulse Resp BP Pulse Ox 98.6 F 92 18 155/87 95 11/25/17 11:49 11/25/17 11:49 11/25/17 11:49 11/25/17 11:49 11/25/17 11:49 Vital Signs - Last 8 Hours Temp Pulse Resp BP Pulse Ox 11/26/17 09:30 113/54 11/26/17 09:15 99.3 F 18 122/63 11/26/17 07:45 98.7 F 54 18 136/75 97 Intake and Output 11/25/17 11/26/17 11/26/17 23:59 07:59 15:59 Intake Total 250 / 250 720 / 720 Output Total 0 / 0 100 / 100 Balance 250 / 250 620 / 620 Intake: IV Fluids Merrem 1,000 MG In Water for inj. (sterile) 10 ML @ 200 mls/ hr IVP NOW STA Rx#:[id number] Oral 240 / 240 120 / 120 Intake, Rinseback and Flushes 600 / 600 Output: Urine 0 / 0 Straight Cath 100 / 100 Other: Meal Dinner Percent of Meal Consumed 50% # Urine Diapers 1 Weight 108.465 kg Blood Glucose* 283 205 Hemodialysis Net Fluid Removed 324 (mL) Patient Weight 11/26/17 23:59 Weight 108.465 kg - General Appearance General appearance: chronically ill (NAD) EENT: ATNC, mucous membranes moist Neck: no JVD, supple Respiratory: clear (ant bilat) Cardiology: edema (LE bilat, decreased), normal S1, normal S2 - Dialysis Access Dialysis Vascular Access: Arteriovenous Fistula thrill: Yes bruit: Yes Gastrointestinal: no tenderness, no guarding, obese Integumentary: warm and dry Neurologic: no focal deficit Musculoskeletal: no deformities Psychiatric: mood/affect appropriate, cooperative Results - Lab Results 11/28/17 05:45 11/28/17 05:45 Most recent lab results Calcium 8.6 mg/dL (8.6-10.3) 11/26/17 04:43 Magnesium 1.5 mg/dL (1.6-2.6) L 11/25/17 12:21 Urine Sodium 62.8 mEq/L 11/26/17 08:30 Consult Discharge Plan - Plan Referrals: Tristen Quintana MD [Primary Care Provider] -
[2017-11-26] MEDS: metOLazone 2.5 MG TABLET PO SCH (13:35)
[2017-11-26] MEDS: amLODIPine 5 MG TABLET PO SCH (13:36)
[2017-11-26] MEDS: Meropenem 500 MG in Water for inj. (sterile) 20 ML 10 ML IVP SCH (17:41)
[2017-11-26] MEDS: Insulin DETEMIR 100 UNIT/ML X5UNITS SQ SCH (22:14)
[2017-11-27 04:42] LABS: Hematocrit 29.2 % (35.3-44.9); Hemoglobin 8.9 g/dL (11.5-15.4); Mean Corpuscular HGB Conc 30.5 g/dL (31.6-35.5); Mean Corpuscular Hemoglobin 27.4 pg (28.0-33.3); Mean Corpuscular Volume 89.8 fL (83.0-100.0); Mean Platelet Volume 9.6 fL (9.4-12.4); Platelet Count 225 K/mcL (140-400); Red Blood Count 3.25 M/mcL (3.82-4.97); Red Cell Distribution Width 15.9 % (11.5-14.5)
[2017-11-27 05:41] LABS: Carbon Dioxide 23 mEq/L (23-29); Chloride 92 mEq/L (98-107); Glucose 238 mg/dL (70-105); Potassium 4.1 mEq/L (3.5-5.1); Sodium 130 mEq/L (136-145)
[2017-11-27] MEDS: *HR* Heparin 5,000 UNIT/ML VIAL SQ SCH ×2 (05:55→17:32)
[2017-11-27] MEDS: *HR* Morphine Sulfate SR (12 HR) 30 MG TABLET.ER PO SCH ×2 (06:07→17:24)
[2017-11-27 06:29] LABS: BUN/Creatinine Ratio 7 (6-26); Blood Urea Nitrogen 21 mg/dL (8-23); Calcium 9.1 mg/dL (8.6-10.3); eGFR For African Americans 19 (> 60); eGFR For Non-African Americans 16 (> 60)
--- NOTE | 2017-11-27 09:31 | Internal Med Progress Note ---
Date of Encounter: 11/27/17 Time of Encounter: 09:29 - Assessment and plan (1) UTI (urinary tract infection) Current Visit: Yes Status: Acute Assessment and plan: Possible Urinary tract infection History of ESBL organisms including Escherichia coli and Klebsiella Continue meropenem day #3, repeated UA and follow-up report of urine culture Urine culture from 11/23/2017 shows mixed nick, unable to be identified but white blood cell count was extremely elevated Qualifiers: Urinary tract infection type: acute cystitis Hematuria presence: with hematuria Qualified Code(s): N30.01 - Acute cystitis with hematuria (2) 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 Current Visit: Yes Status: Acute (3) Hyperglycemia Current Visit: Yes Status: Acute Assessment and plan: Secondary to uncontrolled diabetes type 2 Continue Levemir 5 units at night and insulin sliding scale The patient uses only insulin sliding scale at home Glucose was in the 500s upon admission (4) CAD (coronary artery disease) Current Visit: No Status: Chronic Assessment and plan: Continue aspirin Qualifiers: Coronary Disease-Associated Artery/Lesion type: [place] artery [place] vs. transplanted heart: [place] heart Associated angina: without angina Qualified Code(s): I25.10 - Atherosclerotic heart disease of [place] coronary artery without angina pectoris (5) Diastolic CHF Current Visit: No Status: Chronic Assessment and plan: No exacerbation of the moment Continue metolazone Qualifiers: Qualified Code(s): I50.32 - Chronic diastolic (congestive) heart failure (6) ESRD (end stage renal disease) on dialysis Current Visit: No Status: Chronic Assessment and plan: Patient sees Dr. Rivers as an outpatient Nephrology consulted to continue dialysis (7) HTN (hypertension) Current Visit: No Status: Chronic Assessment and plan: Stable Qualifiers: Hypertension type: essential hypertension Qualified Code(s): I10 - Essential (primary) hypertension (8) Morbid obesity with BMI of 45.0-49.9, adult Current Visit: No Status: Chronic (9) Hyponatremia Current Visit: No Status: Resolved Assessment and plan: Likely secondary to volume overload Improving (10) Hypokalemia Current Visit: No Status: Resolved Assessment and plan: resolved - Subjective Interval history: Feeling better, no new complaints, making urine and complaining of some dysuria at times. Denies any chest pressures or breath, no fevers overnight. No diarrhea - Constitutional Vitals: Temp Pulse Resp BP Pulse Ox 98.4 F 91 14 104/67 99 11/27/17 07:07 11/27/17 07:07 11/27/17 07:07 11/27/17 07:07 11/27/17 07:07 General appearance: Present: A&O X 3 Exam: - Head Head exam: Present: atraumatic, normocephalic - Eye Eye exam: Present: PERRL, conjuntiva pink, sclera anicteric Pupils: Present: PERRL - Neck Neck exam general surgery: Present: supple, trachea midline. Absent: lymphadenopathy - Respiratory Respiratory exam: Present: CTAB, rales (Bibasilar crackles). Absent: accessory muscle use, rhonchi, wheezes - Cardiovascular Cardiovascular exam: Present: RRR, +S1, +S2. Absent: diastolic murmur, gallop, rubs, systolic murmur - GI/Abdominal GI/Abdominal exam: Present: distended, normal bowel sounds, soft, no peritoneal signs. Absent: tenderness - Extremities Exam Extremities exam: Present: pedal edema (+1 pitting edema in both lower extremities), warm, radial pulses palpable and symmetrical. Absent: calf tenderness, cyanotic Additional comments: AV fistula in left upper extremity with good thrill - Neurological Exam Neurological exam: Present: CN II-XII intact, oriented X3, no focal deficits. Absent: pronater drift, facial droop, speech deficit - Skin Skin exam: Present: dry, intact Internal Medicine: Result - Labs CBC & Chem 7: 11/27/17 04:20 11/27/17 06:04 Labs: Short CBC 11/27/17 Range/Units 04:20 WBC 14.9 H (4.3-11.1) K/mcL Hgb 8.9 L (11.5-15.4) g/dL Hct 29.2 L (35.3-44.9) % Plt Count 225 (140-400) K/mcL [facility] 11/27/17 11/27/17 04:20 06:04 Sodium 130 L Potassium 4.1 Chloride 92 L Carbon Dioxide 23 BUN TNP 21 Creatinine TNP 3.02 H Glucose 238 H Calcium TNP 9.1 Consult Discharge Plan - Plan Referrals: Tristen Quintana MD [Primary Care Provider] -
[2017-11-27] MEDS: Gabapentin 100 MG CAPSULE PO SCH ×3 (10:04→19:43)
[2017-11-27] MEDS: amLODIPine 5 MG TABLET PO SCH (10:04)
[2017-11-27] MEDS: Nicotine 21 MG PATCH.TD24 TD SCH (10:05)
[2017-11-27] MEDS: Aspirin Enteric Coated 81 MG Tablet PO SCH (10:05)
[2017-11-27] MEDS: ARIPiprazole 10 MG TABLET PO SCH (10:05)
[2017-11-27] MEDS: metOLazone 2.5 MG TABLET PO SCH (10:05)
[2017-11-27] MEDS: Calcium Acetate 667 MG CAPSULE PO SCH ×3 (10:05→17:22)
[2017-11-27] MEDS: Insulin LISPRO 300 UNITS/3 ML VIAL SQ SCH ×4 (10:06→19:54)
[2017-11-27] MEDS: Naloxone 0.4 MG/ML INJ IVP PRN (17:19)
[2017-11-27] MEDS: Meropenem 500 MG in Water for inj. (sterile) 20 ML 10 ML IVP SCH (17:30)
[2017-11-28] MEDS: Insulin DETEMIR 100 UNIT/ML X5UNITS SQ SCH ×3 (00:49→21:45)
[2017-11-28] MEDS: *HR* Heparin 5,000 UNIT/ML VIAL SQ SCH ×2 (05:02→18:23)
[2017-11-28] MEDS: *HR* Morphine Sulfate SR (12 HR) 30 MG TABLET.ER PO SCH (05:04)
--- NOTE | 2017-11-28 05:47 | Event Note ---
Date of Encounter: 11/28/17 Time of Encounter: 05:35 Reported by RN pt is hard to wake up. RN told me pt didn't receive any narcotics over night. Saw pt at bedside, pt is sleepy but can be wake up by verbal stimulation. Move 4 limbs shows no significant weakness. Glu 260. Will check CBC, BMP for AM. Will empirically give narcan 0.4mg iv as pt has regular morphine dose. Cont closely monitor pt.
[2017-11-28] MEDS: Naloxone 0.4 MG/ML INJ IVP PRN (06:01)
[2017-11-28 06:21] LABS: Hematocrit 30.5 % (35.3-44.9); Hemoglobin 9.3 g/dL (11.5-15.4); Mean Corpuscular HGB Conc 30.5 g/dL (31.6-35.5); Mean Corpuscular Hemoglobin 27.4 pg (28.0-33.3); Platelet Count 229 K/mcL (140-400); Red Blood Count 3.39 M/mcL (3.82-4.97); Red Cell Distribution Width 15.9 % (11.5-14.5)
[2017-11-28 06:40] LABS: Calcium 9.5 mg/dL (8.6-10.3); Potassium 4.4 mEq/L (3.5-5.1)
--- NOTE | 2017-11-28 08:39 | Internal Med Progress Note ---
Date of Encounter: 11/28/17 Time of Encounter: 08:37 - Assessment and plan (1) UTI (urinary tract infection) Current Visit: Yes Status: Acute Assessment and plan: Possible Urinary tract infection History of ESBL organisms including Escherichia coli and Klebsiella Continue meropenem day #4, repeated UA and follow-up report of urine culture Urine culture from 11/23/2017 shows mixed nick, unable to be identified but white blood cell count was extremely elevated Qualifiers: Urinary tract infection type: acute cystitis Hematuria presence: with hematuria Qualified Code(s): N30.01 - Acute cystitis with hematuria (2) 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 Current Visit: Yes Status: Acute (3) Hyperglycemia Current Visit: Yes Status: Acute Assessment and plan: Secondary to uncontrolled diabetes type 2 Increase to Levemir 5 units BID and insulin sliding scale The patient uses only insulin sliding scale at home Glucose was in the 500s upon admission (4) CAD (coronary artery disease) Current Visit: No Status: Chronic Assessment and plan: Continue aspirin Qualifiers: Coronary Disease-Associated Artery/Lesion type: [place] artery [place] vs. transplanted heart: [place] heart Associated angina: without angina Qualified Code(s): I25.10 - Atherosclerotic heart disease of [place] coronary artery without angina pectoris (5) Diastolic CHF Current Visit: No Status: Chronic Assessment and plan: No exacerbation of the moment Continue metolazone Qualifiers: Qualified Code(s): I50.32 - Chronic diastolic (congestive) heart failure (6) ESRD (end stage renal disease) on dialysis Current Visit: No Status: Chronic Assessment and plan: Patient sees Dr. Rivers as an outpatient Nephrology consulted to continue dialysis (7) HTN (hypertension) Current Visit: No Status: Chronic Assessment and plan: Stable Qualifiers: Hypertension type: essential hypertension Qualified Code(s): I10 - Essential (primary) hypertension (8) Morbid obesity with BMI of 45.0-49.9, adult Current Visit: No Status: Chronic (9) Hyponatremia Current Visit: No Status: Resolved Assessment and plan: Likely secondary to volume overload (10) Hypokalemia Current Visit: No Status: Resolved Assessment and plan: resolved - Subjective Interval history: Became unresponsive on 11/27/17, responded quickly to Narcan. Feeling better, no new complaints, making urine and not complaining of dysuria anymore. Denies any chest pressures or breath, no fevers overnight. No diarrhea - Constitutional Vitals: Temp Pulse Resp BP Pulse Ox 98.6 F 98 15 101/60 94 11/28/17 06:56 11/28/17 06:56 11/28/17 06:56 11/28/17 06:56 11/28/17 06:56 General appearance: Present: A&O X 3 Exam: - Head Head exam: Present: atraumatic, normocephalic - Eye Eye exam: Present: PERRL, conjuntiva pink, sclera anicteric Pupils: Present: PERRL - Neck Neck exam general surgery: Present: supple, trachea midline. Absent: lymphadenopathy - Respiratory Respiratory exam: Present: CTAB, rales (Bibasilar crackles). Absent: accessory muscle use, rhonchi, wheezes - Cardiovascular Cardiovascular exam: Present: RRR, +S1, +S2. Absent: diastolic murmur, gallop, rubs, systolic murmur - GI/Abdominal GI/Abdominal exam: Present: distended, normal bowel sounds, soft, no peritoneal signs. Absent: tenderness - Extremities Exam Extremities exam: Present: pedal edema (+1 pitting edema in both lower extremities), warm, radial pulses palpable and symmetrical. Absent: calf tenderness, cyanotic Additional comments: AV fistula in left upper extremity with good thrill - Neurological Exam Neurological exam: Present: CN II-XII intact, oriented X3, no focal deficits. Absent: pronater drift, facial droop, speech deficit - Skin Skin exam: Present: dry, intact Internal Medicine: Result - Labs CBC & Chem 7: 11/28/17 05:45 11/28/17 05:45 Labs: Short CBC 11/28/17 Range/Units 05:45 WBC 16.1 H (4.3-11.1) K/mcL Hgb 9.3 L (11.5-15.4) g/dL Hct 30.5 L (35.3-44.9) % Plt Count 229 (140-400) K/mcL BMP 11/28/17 05:45 Sodium 128 L Potassium 4.4 Chloride 89 L Carbon Dioxide 32 H BUN 33 H Creatinine 4.53 H Glucose 254 H Calcium 9.5 Consult Discharge Plan - Plan Referrals: Tristen Quintana MD [Primary Care Provider] -
[2017-11-28] MEDS: metOLazone 2.5 MG TABLET PO SCH (09:49)
[2017-11-28] MEDS: Aspirin Enteric Coated 81 MG Tablet PO SCH (09:49)
[2017-11-28] MEDS: amLODIPine 5 MG TABLET PO SCH (09:49)
[2017-11-28] MEDS: Calcium Acetate 667 MG CAPSULE PO SCH ×3 (09:50→15:56)
[2017-11-28] MEDS: ARIPiprazole 10 MG TABLET PO SCH (09:50)
[2017-11-28] MEDS: Gabapentin 100 MG CAPSULE PO SCH ×3 (09:50→21:45)
[2017-11-28] MEDS: Nicotine 21 MG PATCH.TD24 TD SCH (09:51)
[2017-11-28] MEDS: Insulin LISPRO 300 UNITS/3 ML VIAL SQ SCH ×4 (09:51→22:02)
--- NOTE | 2017-11-28 13:28 | Nephrology Progress Note ---
Date of Encounter: 11/28/17 Time of Encounter: 12:00 - Assessment and Plan (1) ESRD (end stage renal disease) on dialysis Current Visit: No Status: Acute s/p HD on wednesday, next HD planned for tomorrow Lytes stable except for sodium levels (2) Hyponatremia Current Visit: No Status: Acute Initially improved after HD to 130 but dropped again after a day without to 128 but still better than presentation at 124, will monitor (3) Anemia Current Visit: No Status: Chronic Hgb improving at 9.3, will monitor Qualifiers: Anemia type: due to chronic kidney disease Chronic kidney disease stage: on chronic dialysis Qualified Code(s): N18.6 - End stage renal disease; D63.1 - Anemia in chronic kidney disease; Z99.2 - Dependence on renal dialysis Subjective Interval history: Pt seen and examined siting up in chair. had accident, peed all over herself, will get for her to change her clothing Objective - Vital Signs Vital signs: Vital Signs Temp Pulse Resp BP Pulse Ox 11/28/17 10:52 98.3 F 86 15 106/59 96 11/28/17 06:56 98.6 F 98 15 101/60 94 11/28/17 05:23 99.3 F 91 8 136/64 98 11/28/17 04:39 99.9 F H 83 18 134/72 97 11/27/17 23:58 98.5 F 88 17 123/76 99 11/27/17 21:19 95 11/27/17 19:54 98.1 F 86 17 104/60 95 11/27/17 15:06 97.5 F L 78 13 121/56 98 Intake and Output 11/27/17 11/28/17 11/28/17 23:59 07:59 15:59 Intake Total 120 / 120 480 / 480 Balance 120 / 120 480 / 480 Intake: Oral 120 / 120 480 / 480 Other: Meal Breakfast Percent of Meal Consumed 50% Weight 107 kg Blood Glucose* 237 270 334 Patient Weight 11/28/17 23:59 Weight 107 kg - General Appearance General appearance: Present: chronically ill (NAD) EENT: Present: ATNC, mucous membranes moist Neck: Present: no JVD, supple Respiratory: Present: clear Cardiology: Present: edema, normal S1, normal S2 Dialysis Vascular Access: Arteriovenous Fistula thrill: Yes bruit: Yes Gastrointestinal: Present: no tenderness, no guarding, obese Integumentary: Present: warm and dry Neurologic: Present: no focal deficit Musculoskeletal: Present: no deformities Psychiatric: Present: mood/affect appropriate, cooperative - Lab 11/28/17 05:45 11/28/17 05:45 Most recent lab results Calcium 9.5 mg/dL (8.6-10.3) 11/28/17 05:45 Magnesium 1.5 mg/dL (1.6-2.6) L 11/25/17 12:21 Urine Sodium 62.8 mEq/L 11/26/17 08:30 Consult Discharge Plan - Plan Referrals: Tristen Quintana MD [Primary Care Provider] -
[2017-11-28] MEDS: Meropenem 500 MG in Water for inj. (sterile) 20 ML 10 ML IVP SCH (15:58)
[2017-11-28] MEDS ORDERED: *HR* Morphine Sulfate SR (12 HR) 15 MG TABLET.ER PO SCH (18:00)
[2017-11-29] MEDS: *HR* Heparin 5,000 UNIT/ML VIAL SQ SCH ×2 (06:15→18:20)
[2017-11-29 06:17] LABS: Calcium 9.3 mg/dL (8.6-10.3); Potassium 4.4 mEq/L (3.5-5.1)
[2017-11-29 06:20] LABS: Hematocrit 27.9 % (35.3-44.9); Hemoglobin 8.6 g/dL (11.5-15.4); Mean Corpuscular HGB Conc 30.8 g/dL (31.6-35.5); Mean Corpuscular Hemoglobin 27.7 pg (28.0-33.3); Mean Corpuscular Volume 89.7 fL (83.0-100.0); Mean Platelet Volume 10.1 fL (9.4-12.4); Platelet Count 205 K/mcL (140-400); Red Blood Count 3.11 M/mcL (3.82-4.97); Red Cell Distribution Width 15.5 % (11.5-14.5)
[2017-11-29] MEDS ORDERED: 0.9 % Sodium Chloride 250 ML IVC PRN (07:46)
[2017-11-29] MEDS ORDERED: 0.9 % Sodium Chloride 1,000 ML PRIME SCH (08:00)
--- NOTE | 2017-11-29 09:03 | Internal Med Progress Note ---
Date of Encounter: 11/29/17 Time of Encounter: 08:58 - Assessment and plan (1) UTI (urinary tract infection) Current Visit: Yes Status: Acute Assessment and plan: Acute metabolic encephalopathy secondary to Possible Urinary tract infection and morphine 2 prior cultures have been growing mixed nick, unable to identify the pathogen. We will send 4th urine sample for culture after catheterizing the patient again (cath sample was sent yesterday as well) . History of ESBL organisms including Escherichia coli and Klebsiella Continue meropenem day #5, repeated UA and follow-up report of urine culture Add Ampicillin (Consider VRE? as she is not improving on Merrem) ID Consult ( grew kaylan in the past) Urine culture from 11/23/2017 shows mixed nick, unable to be identified but white blood cell count was extremely elevated Morphine dose was decreased Qualifiers: Urinary tract infection type: acute cystitis Hematuria presence: with hematuria Qualified Code(s): N30.01 - Acute cystitis with hematuria (2) 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 Current Visit: Yes Status: Acute (3) Hyperglycemia Current Visit: Yes Status: Acute Assessment and plan: Secondary to uncontrolled diabetes type 2 Increased to Levemir 5 units BID and insulin sliding scale The patient uses only insulin sliding scale at home Glucose was in the 500s upon admission (4) CAD (coronary artery disease) Current Visit: No Status: Chronic Assessment and plan: Continue aspirin Qualifiers: Coronary Disease-Associated Artery/Lesion type: [place] artery [place] vs. transplanted heart: [place] heart Associated angina: without angina Qualified Code(s): I25.10 - Atherosclerotic heart disease of [place] coronary artery without angina pectoris (5) Diastolic CHF Current Visit: No Status: Chronic Assessment and plan: No exacerbation of the moment Continue metolazone Qualifiers: Qualified Code(s): I50.32 - Chronic diastolic (congestive) heart failure (6) ESRD (end stage renal disease) on dialysis Current Visit: No Status: Chronic Assessment and plan: Patient sees Dr. Rivers as an outpatient Nephrology consulted to continue dialysis (7) HTN (hypertension) Current Visit: No Status: Chronic Assessment and plan: Stable Qualifiers: Hypertension type: essential hypertension Qualified Code(s): I10 - Essential (primary) hypertension (8) Morbid obesity with BMI of 45.0-49.9, adult Current Visit: No Status: Chronic (9) Hyponatremia Current Visit: No Status: Resolved Assessment and plan: Likely secondary to volume overload (10) Hypokalemia Current Visit: No Status: Resolved Assessment and plan: resolved - Subjective Interval history: Became unresponsive on 11/27/17, responded quickly to Narcan. Gets confused at times, does not remember having a straight catheter yesterday. Persistent lower abdominal pain and dysuria. Denies any chest pressures or breath, no fevers overnight. No diarrhea - Constitutional Vitals: Temp Pulse Resp BP Pulse Ox 98.2 F 86 9 120/64 93 11/29/17 06:45 11/29/17 06:45 11/29/17 06:45 11/29/17 06:45 11/29/17 06:45 General appearance: Present: A&O X 3 Exam: - Head Head exam: Present: atraumatic, normocephalic - Eye Eye exam: Present: PERRL, conjuntiva pink, sclera anicteric Pupils: Present: PERRL - Neck Neck exam general surgery: Present: supple, trachea midline. Absent: lymphadenopathy - Respiratory Respiratory exam: Present: CTAB, rales (Bibasilar crackles). Absent: accessory muscle use, rhonchi, wheezes - Cardiovascular Cardiovascular exam: Present: RRR, +S1, +S2. Absent: diastolic murmur, gallop, rubs, systolic murmur - GI/Abdominal GI/Abdominal exam: Present: distended, normal bowel sounds, soft, no peritoneal signs, mild lower abdominal tenderness. No rebound - Extremities Exam Extremities exam: Present: pedal edema (+1 pitting edema in both lower extremities), warm, radial pulses palpable and symmetrical. Absent: calf tenderness, cyanotic Additional comments: AV fistula in left upper extremity with good thrill - Neurological Exam Neurological exam: Present: CN II-XII intact, oriented X3, no focal deficits. Absent: pronater drift, facial droop, speech deficit - Skin Skin exam: Present: dry, intact Internal Medicine: Result - Labs CBC & Chem 7: 11/29/17 05:50 11/29/17 05:50 Labs: Short CBC 11/29/17 Range/Units 05:50 WBC 17.4 H (4.3-11.1) K/mcL Hgb 8.6 L (11.5-15.4) g/dL Hct 27.9 L (35.3-44.9) % Plt Count 205 (140-400) K/mcL [facility] 11/29/17 05:50 Sodium 126 L Potassium 4.4 Chloride 86 L Carbon Dioxide 30 H BUN 42 H Creatinine 5.40 H Glucose 177 H Calcium 9.3 Consult Discharge Plan - Plan Referrals: Tristen Quintana MD [Primary Care Provider] -
[2017-11-29] MEDS ORDERED: Ampicillin 1,000 MG in 0.9 % Sodium Chloride Mini Bag 100 ML IVPB SCH (10:00)
[2017-11-29] MEDS: Calcium Acetate 667 MG CAPSULE PO SCH ×3 (10:33→17:34)
[2017-11-29] MEDS: Insulin LISPRO 300 UNITS/3 ML VIAL SQ SCH ×4 (10:33→21:36)
[2017-11-29] MEDS: amLODIPine 5 MG TABLET PO SCH (10:34)
[2017-11-29] MEDS: Nicotine 21 MG PATCH.TD24 TD SCH (10:46)
[2017-11-29] MEDS: Gabapentin 100 MG CAPSULE PO SCH ×3 (10:51→21:34)
[2017-11-29] MEDS: Aspirin Enteric Coated 81 MG Tablet PO SCH (10:51)
[2017-11-29] MEDS: Insulin DETEMIR 100 UNIT/ML X5UNITS SQ SCH ×2 (10:51→21:34)
[2017-11-29] MEDS: metOLazone 2.5 MG TABLET PO SCH (10:51)
[2017-11-29] MEDS: ARIPiprazole 10 MG TABLET PO SCH (10:51)
[2017-11-29] MEDS: Ampicillin 1,000 MG in 0.9 % Sodium Chloride Mini Bag 100 ML IVPB SCH ×2 (10:52→17:35)
--- NOTE | 2017-11-29 13:22 | Infectious Disease Consult ---
Date of Encounter: 11/29/17 Time of Encounter: 12:55 Assessment and Plan (1) Sepsis Status: Acute Assessment and plan: Patient has 2 SIRS criteria with elevated temperature and leukocytosis Due to UTI or other cause Qualifiers: Sepsis type: sepsis due to unspecified organism Qualified Code(s): A41.9 - Sepsis, unspecified organism (2) UTI (urinary tract infection) Status: Acute Assessment and plan: Causative organism unknown currently Urine cultures have been grossly mixed and have been unable to be cultured History of ESBL Escherichia coli in urine Patient had straight catheterization today to obtain viable sample RN reports thick purulent urine Following catheterization will start fluconazole as previous urine cultures did show Masha tropicalis Will discontinue meropenem and start ertapenem We will obtain CT abdomen/pelvis with contrast, will discuss with nephrology to perform imaging coordinated with patient dialysis Qualifiers: Urinary tract infection type: acute cystitis Hematuria presence: without hematuria Qualified Code(s): N30.00 - Acute cystitis without hematuria (3) Leukocytosis Status: Acute Assessment and plan: Persistent leukocytosis Unknown organism currently History of ESBL Escherichia coli in urine Possible other cause of patient white blood cell count Stage III decubitus ulcer on coccyx does not appear infected Patient had episode of lethargy and decreased responsiveness on 11/28 There is a possibility the patient had aspiration event during this time Consider wound care consult We will obtain CT abdomen/pelvis as above We will obtain chest x-ray Qualifiers: Leukocytosis type: unspecified Qualified Code(s): D72.829 - Elevated white blood cell count, unspecified (4) Lethargy Status: Acute Assessment and plan: Patient had episode of lethargy on 11/28 Patient mentation improved with administration of Narcan Episode of lethargy possibly due to medications and renal status Concern during episode of lethargy patient had possible aspiration event We will obtain chest x-ray for further evaluation (5) ESRD (end stage renal disease) on dialysis Status: Chronic Assessment and plan: Continued management per nephrology Infectious Disease HPI - Data of Consult Patient: known to practice within the last 3 years Consult date: 11/29/17 Requesting Physician: Marcos Sen Primary Care Provider: Tristen Quintana MD - Consult Narrative Reason for consult: Hx of ESBL, not improving on merrem History of present illness: Ms. Riley is a 62 year old female with prior medical history of ESRD on HD, COPD, CAD, CVA,, ESBL in her urine, and sacral decubitus ulcers presented to [facility] on 11/25 for UTI symptoms. Infectious disease was consulted on 11/29 to help address her UTI with history of ESBL that was not improving with meropenem. She had recently been in the hospital and discharged on 11/19 having been treated for chest pain, influenza A, sacral decubitus, acute on chronic respiratory failure, congestive heart failure, and UTI. At the time of discharge, the patient had been asymptomatic while having a urine culture positive for ESBL Escherichia coli. It was felt that this was due to colonization. After she left the hospital, she reports having dysuria, hematuria, and pain in her lower abdomen. She states that she felt occasional chills but denied having fevers. At the time of presentation to the hospital her vitals were stable, but she was noted to have elevated white count of 16.4. She was admitted and started on meropenem. Over the next several days she had continued on meropenem, but continued to have persistent leukocytosis. She did have an episode of increased lethargy on 11/28 where she was found to have some difficulty waking up. She was given Narcan at that time which seemed to improve her mentation. As of today she continues to complain of dysuria and lower abdominal pain and continues to have an elevated white blood cell count. It was noted that over the last couple days, including today, she was shown to have mild elevations in her temperature. CC: Marcos Sen Past Med Surg Social Fam HX - Past Medical History Medical history: COPD (Not oxygen dependent), coronary artery disease (Status post stents and CABG), CVA, DVT, dialysis (End-stage renal disease, followed by Dr. Rivers, dialyses Wednesdays and Fridays), GERD, GI bleed, hyperlipidemia, hypertension, peripheral artery disease, other (Neuropathy, UTIs with Klebsiella and Escherichia coli ESBL, tobacco use, sacral ulcer stage II, osteoarthritis, depression) Psychiatric history: anxiety, depression, schizophrenia, previous psychiatric hospitalization, other - Past Surgical History Surgical History: angioplasty/stent, appendectomy, cholecystectomy, coronary bypass (CABG), hysterectomy, knee replacement, other, IVC filter - Social History Smoking Status: Current every day smoker Packs per day: 1 pack per day Smokeless Tobacco Status: No Alcohol use: none Drug use: none - Family History Father Family Member Ethnicity: Non- Living Status: Hx Family Cardiac Disorders: Yes (CAD, [place]) Hx Family Cancer: Yes (Polycythemia) Hx Family Endocrine Disorder: Yes (DM) Mother Family Member Ethnicity: Non- Living Status: Still Living Hx Family Respiratory Disorders: Yes (End stage COPD) Brother Family Member Ethnicity: Non- Living Status: Still Living Sister Adopted: No Age: 61 Family Member Ethnicity: Non- Living Status: Still Living Hx Family Cardiac Disorders: No Hx Family Respiratory Disorders: No Hx Family Cancer: No Hx Family GI Disorders: No Hx Family Genitourinary Disorders: No Hx Family Endocrine Disorder: No Hx Family Musculoskeletal Disorders: No Hx Family Neuromuscular Disorders: No Hx Family Neurologic Disorders: No Hx Family HEENT Disorders: No Hx Family Autoimmune Disorders: No Hx Family Reproductive Disorders: No Hx Family Psychosocial Disorders: No Hx Family Medical Disorders: No Infectious Disease-CN:Meds Clopidogrel [Plavix] 75 mg PO DAILY 05/11/15 [History] Omeprazole [PriLOSEC] 20 mg PO BID 05/11/15 [History] Colestipol HCl [Colestid] 1 gm PO BID 06/12/15 [History] Carvedilol 12.5 mg PO BID 10/28/15 [History] Calcium Acetate [Phos-LO] 1,334 mg PO TIDWM 09/06/16 [History] Folic Acid/Vit Bcomp,C [Renal Vitamin Tablet] 0.8 mg PO DAILY 04/15/17 [History] ARIPiprazole [Abilify] 10 mg PO DAILY 09/13/17 [History] Amitriptyline HCl 100 mg PO HS 09/13/17 [History] Aspirin Enteric Coated [Aspirin EC] 81 mg PO DAILY 09/13/17 [History] Budesonide/Formoterol 160/4.5 [Symbicort 160/4.5] 2 puff IH BIDR 09/13/17 [ History] Cholecalciferol (Vitamin D3) [Vitamin D3] 50,000 unit PO TH 09/13/17 [History] Lidocaine/Prilocaine CREAM [Emla] 1 appl TP AD PRN 09/13/17 [History] OxyCODONE/APAP 10/325 [Percocet 10/325 MG] 1 tab PO Q6H PRN 09/13/17 [History] Oxygen 2 l NS AD 09/13/17 [History] Sennosides [Senna] 8.6 mg PO BID 09/13/17 [History] Sevelamer [Renvela] 800 mg PO TIDWM 09/13/17 [History] Albuterol Neb [AccuNeb] 0.63 mg IH Q6H PRN 10/18/17 [History] Gabapentin [Neurontin] 100 mg PO TID #60 capsule 10/21/17 [Rx] Rosuvastatin [Crestor] 10 mg PO HS #15 tablet 10/21/17 [Rx] Docusate Sodium [Colace] 100 mg PO BID #60 capsule 10/26/17 [Rx] metOLazone [Zaroxolyn] 1 tab PO DAILY 10/26/17 [History] Collagenase Oint [Santyl] 1 appl TP AD 11/11/17 [History] Oxybutynin [Ditropan] 5 mg PO TID 11/11/17 [History] Isosorbide MONOnitrate (24 HR) [Imdur] 30 mg PO DAILY #30 tab.er.24h 11/19/17 [ Rx] amLODIPine [Norvasc] 10 mg PO DAILY #30 tablet 11/19/17 [Rx] Insulin LISPRO [Humalog Kwikpen U-100] 35 unit SQ ACHS 11/25/17 [History] Morphine Sulfate SR (12 HR) [MS Contin] 1 tab PO Q12HR 11/25/17 [History] 3 Allergy/AdvReac Type Severity Reaction Status Date / Time No Known Allergies Allergy Verified 11/24/17 09:01 Review of systems: Gen: Denies fever, reports occasional chills, denies weakness CV: Denies chest pain, denies palpitations Resp: Denies shortness of breath, denies wheeze GI: Denies nausea, denies vomiting, reports abdominal pain as per history of present illness, denies constipation, denies diarrhea Neuro: Denies headache, denies confusion, denies focal weakness : Denies flank pain, reports dysuria, reports hematuria Exam - Constitutional Vitals: Temp Pulse Resp BP Pulse Ox 100.4 F H 86 18 120/68 93 11/29/17 10:25 11/29/17 06:45 11/29/17 10:25 11/29/17 12:55 11/29/17 06:45 - Additional findings Additional findings: General: Cooperative, pleasant, no acute distress, alert and oriented 3, answers questions appropriately HEENT: Normocephalic, atraumatic, Conjunctiva pink, sclera anicteric, oral mucosa moist, no orophargeal erythema or exudates Respiratory: No accessory muscle usage, clear to auscultation bilaterally, no wheezes/rhonchi/rales appreciated Cardiovascular: Regular rate and rhythm, S1 and S2 present, no murmurs/rubs/ gallops/clicks appreciated GI/abdominal: Nondistended, mild tenderness to palpation in lower abdomen, soft , normal bowel sounds, no peritoneal signs Extremities: No calf tenderness, 1+ pedal edema appreciated, warm, lower extremity pulses palpable and symmetrical Neurological: Alert and oriented 3, no facial droop, no focal deficits Skin: Dry, intact, normal color Infectious Disease CN: Results - Labs CBC & Chem 7: 11/29/17 05:50 11/29/17 05:50 Consult Discharge Plan - Plan Referrals: Tristen Quintana MD [Primary Care Provider] - - Attending Attestation I examined this patient and my medical decision-making was reviewed with the Resident Physician. I agree with the documented findings, disposition and treatment plan as described except to the extent set forth below. This is an addendum to original report dictated by resident physician. Please refer to residents note for full detail. Patient is 59-year-old woman who is well-known to my service who was seen by me on previous admission for flu and asymptomatic bacteriuria. Patient is end- stage renal disease on hemodialysis. Patient was treated appropriately and discharged home. Patient known to be colonized with Escherichia coli that is extended spectrum beta lactamase. At that time without was a colonizer I will did not treat. Apparently patient isnt been having some vaginal pain and suprapubic pain. Patient also has been having dysuria and hematuria. Patient had no fevers no chills some nausea but no vomiting. In the emergency department patient had no fever no leukocytosis but heart rate of 92. A repeat urine was done which was contaminated. Blood cultures were obtained and were no growth. Patient apparently last night was unresponsive and they had to give her Narcan to wake her up. Patient during the hospital stay had a temperature of 100.4. Currently patient laying in bed states that shes having pain and points to her genital area. Rest of the review of system and physical exam is as above. Assessment and plan: #1 sepsis #2 urinary tract infection causative organism unclear but likely Escherichia coli ESBL based on previous cultures. #3 end-stage renal disease on hemodialysis #4 persistent leukocytosis #5 for lethargy status post Narcan At this point we will do CT abdomen and pelvis make sure the patient has no pyelonephritis, no abscess and no nephrolithiasis. Agree with Diflucan but we will stop meropenem and start ertapenem for now. Patient did have a straight catheter and cultures were sent await cultures to finalize. Also patient spiked a little bit of fevers and concern for possible aspiration so well check a chest x-ray. Patient did have a stage II decubitus ulcer make sure she doesnt have osteomyelitis so we will check inflammatory markers if the CT abdomen and pelvis is concerning.
--- NOTE | 2017-11-29 17:22 | Nephrology Progress Note ---
Date of Encounter: 11/29/17 Time of Encounter: 11:00 - Assessment and Plan (1) ESRD (end stage renal disease) on dialysis Status: Acute Continue hD with UF as tolerated Lytes stable except for sodium level at 126, should improve once again with HD today (2) Hyponatremia Status: Acute Sodium at 126 today, should improve with HD (3) Anemia Status: Chronic Hgb dropped from 9.3 to 8.6, will monitor Qualifiers: Anemia type: due to chronic kidney disease Chronic kidney disease stage: on chronic dialysis Qualified Code(s): N18.6 - End stage renal disease; D63.1 - Anemia in chronic kidney disease; Z99.2 - Dependence on renal dialysis Subjective Interval history: Pt seen and examined on HD, feel better with no new complaints Objective - Vital Signs Vital signs: Vital Signs Temp Pulse Resp BP Pulse Ox 11/29/17 16:14 98.6 F 84 10 105/62 93 11/29/17 14:10 99.3 F 20 110/63 11/29/17 13:55 118/64 11/29/17 13:40 103/53 11/29/17 13:25 109/71 11/29/17 13:10 104/52 11/29/17 12:55 120/68 11/29/17 12:40 119/51 11/29/17 12:25 131/54 11/29/17 12:10 130/62 11/29/17 11:55 129/61 11/29/17 11:40 133/59 11/29/17 11:25 117/71 11/29/17 11:10 127/58 11/29/17 10:55 110/58 11/29/17 10:40 119/58 11/29/17 10:25 100.4 F H 18 138/51 11/29/17 06:45 98.2 F 86 9 120/64 93 11/29/17 05:57 96 11/29/17 04:41 97.9 F 78 12 144/68 96 11/29/17 00:58 98.3 F 73 12 136/70 98 11/29/17 00:39 100 11/28/17 22:35 10 92 11/28/17 20:04 98.1 F 77 10 140/77 96 Intake and Output 11/29/17 11/29/17 11/29/17 07:59 15:59 23:59 Intake Total 600 / 600 Output Total 4700 / 4700 Balance -4100 / -4100 Intake: Oral 0 / 0 Intake, Rinseback and Flushes 600 / 600 Output: Urine 0 / 0 Total Dialysis (HD) Output 4600 / 4600 Straight Cath 100 / 100 Other: Meal Breakfast Percent of Meal Consumed 0% # Urine Diapers 1 Weight 108.6 kg 108.6 kg Blood Glucose* 186 111 259 Hemodialysis Net Fluid Removed 4000 (mL) Patient Weight 11/29/17 23:59 Weight 108.6 kg - General Appearance General appearance: Present: chronically ill EENT: Present: ATNC, mucous membranes moist Neck: Present: no JVD, supple Respiratory: Present: clear Cardiology: Present: edema (trace LE bilat), normal S1, normal S2 Dialysis Vascular Access: Arteriovenous Fistula thrill: Yes bruit: Yes Gastrointestinal: Present: no tenderness, no guarding, obese Integumentary: Present: warm and dry Neurologic: Present: no focal deficit Musculoskeletal: Present: no deformities Psychiatric: Present: mood/affect appropriate - Lab 12/06/17 03:35 12/07/17 04:52 Most recent lab results Calcium 9.3 mg/dL (8.6-10.3) 11/29/17 05:50 Magnesium 1.5 mg/dL (1.6-2.6) L 11/25/17 12:21 Urine Sodium 62.8 mEq/L 11/26/17 08:30 Consult Discharge Plan - Plan Additional Instructions: Follow-up with urology within the next 2 weeks. Complete antibiotics, did not take amitriptyline while being on Zyvox. Follow-up with primary care physician within the next 7 days. Continue dialysis. Use insulin sliding scale at home and Levemir 5 units twice a day. Referrals: Tristen Quintana MD [Primary Care Provider] - 12/14/17 1:45 pm (Please follow up as schedule...) Naren Garcia MD [Partnered Physician] - 12/21/17 11:00 am (please follow up a schedule...) Prescriptions: Insulin DETEMIR [Levemir] 5 unit SQ BID 30 Days #1 [id number] Linezolid [Zyvox] 600 mg PO BID #10 tablet
[2017-11-29] MEDS: *HR* OxyCODONE/APAP 5/325 TABLET PO PRN (17:34)
[2017-11-29] MEDS: Fluconazole 200 MG/100 ML 200 MG/100 ML BAG IVPB SCH (21:35)
[2017-11-30 03:19] LABS: Hematocrit 27.8 % (35.3-44.9); Hemoglobin 8.5 g/dL (11.5-15.4); Mean Corpuscular HGB Conc 30.6 g/dL (31.6-35.5); Mean Corpuscular Hemoglobin 27.5 pg (28.0-33.3); Mean Platelet Volume 9.9 fL (9.4-12.4); Platelet Count 179 K/mcL (140-400); Red Blood Count 3.09 M/mcL (3.82-4.97); Red Cell Distribution Width 15.2 % (11.5-14.5)
[2017-11-30 03:42] LABS: Calcium 9.1 mg/dL (8.6-10.3); Potassium 4.5 mEq/L (3.5-5.1)
[2017-11-30] MEDS: *HR* Heparin 5,000 UNIT/ML VIAL SQ SCH ×2 (05:06→18:11)
[2017-11-30] MEDS: ARIPiprazole 10 MG TABLET PO SCH (08:02)
[2017-11-30] MEDS: Aspirin Enteric Coated 81 MG Tablet PO SCH (08:02)
[2017-11-30] MEDS: metOLazone 2.5 MG TABLET PO SCH (08:02)
[2017-11-30] MEDS: Gabapentin 100 MG CAPSULE PO SCH ×3 (08:02→20:53)
[2017-11-30] MEDS: Calcium Acetate 667 MG CAPSULE PO SCH ×3 (08:02→16:05)
[2017-11-30] MEDS: Fluconazole 200 MG/100 ML 200 MG/100 ML BAG IVPB SCH (08:03)
[2017-11-30] MEDS: Nicotine 21 MG PATCH.TD24 TD SCH (08:05)
[2017-11-30] MEDS: amLODIPine 5 MG TABLET PO SCH (08:06)
[2017-11-30] MEDS: Insulin DETEMIR 100 UNIT/ML X5UNITS SQ SCH ×2 (08:16→20:56)
[2017-11-30] MEDS: Insulin LISPRO 300 UNITS/3 ML VIAL SQ SCH ×4 (08:16→20:58)
--- NOTE | 2017-11-30 09:45 | Infectious Disease Progress No ---
Date of Encounter: 11/30/17 Time of Encounter: 08:25 - Assessment and Plan (1) Sepsis Current Visit: No Status: Resolved Patient has 1 SIRS criteria currently with leukocytosis UTI likely source Straight catheterization for urine culture obtained yesterday Qualifiers: Sepsis type: sepsis due to unspecified organism Qualified Code(s): A41.9 - Sepsis, unspecified organism (2) UTI (urinary tract infection) Current Visit: No Status: Acute Causative organism unknown currently Urine cultures have been grossly mixed and have been unable to be cultured Urine culture via straight cath obtained yesterday History of ESBL Escherichia coli in urine Patient has received 5 days Meropenem prior to it being discontinued Patient on Ertapenem day 1 Patient on Fluconazole day 1 Continue fluconazole as previous urine cultures did show Masha tropicalis Continue ertapenem Spoke with pharmacy regarding initiating a bladder irrigation with Gentamycin and Amphotericin, will start irrigation this evening to ensure direct delivery of antimicrobials We will obtain CT abdomen/pelvis with contrast, will discuss with nephrology to perform imaging coordinated with patient dialysis Qualifiers: Urinary tract infection type: acute cystitis Hematuria presence: without hematuria Qualified Code(s): N30.00 - Acute cystitis without hematuria (3) Leukocytosis Current Visit: No Status: Acute Persistent leukocytosis, though improvement seen today Unknown organism currently Straight cath urine culture obtained yesterday History of ESBL Escherichia coli in urine Possible other cause of patient white blood cell count Stage III decubitus ulcer on coccyx does not appear infected Patient had episode of lethargy and decreased responsiveness on 11/28 There is a possibility the patient had aspiration event during this time CXR on 11/29 showed minimal atelectasis Consider wound care consult We will obtain CT abdomen/pelvis as above Qualifiers: Leukocytosis type: unspecified Qualified Code(s): D72.829 - Elevated white blood cell count, unspecified (4) Lethargy Current Visit: Yes Status: Acute Patient had episode of lethargy on 11/28 Patient mentation improved with administration of Narcan Episode of lethargy possibly due to medications and renal status Concern during episode of lethargy patient had possible aspiration event CXR did not show findings concerning for aspiration (5) ESRD (end stage renal disease) on dialysis Current Visit: No Status: Chronic Continued management per primary team - Subjective Interval history: Patient reports that she is feeling much the same today as she did yesterday. She continues to report having lower abdominal pain, but reports that there is some pain in her vaginal area as well. She also reports mild nausea. She denies having any fever or chills, but does state that she woke last night slightly diaphoretic. Her WBC has improved today and she has not had any see elevation of temperature. All her vitals have been stable in the last 24 hours. A CXR was obtained showed minimal bibasilar atelectasis. Infect Dis PN-Objective Data - Labs CBC & Chem 7: 11/30/17 03:00 11/30/17 03:00 Labs: Laboratory Results - last 24 hr 11/28/17 11/28/17 11/28/17 15:44 21:10 21:27 WBC RBC Hgb Hct MCV MCH MCHC RDW Plt Count MPV Sodium Potassium Chloride Carbon Dioxide BUN Creatinine Est GFR ( Amer) Est GFR (Non-Af Amer) BUN/Creatinine Ratio Glucose POC Glucose 206 H 198 H 167 H Calculated Osmolality Calcium 11/29/17 11/29/17 11/29/17 06:49 12:21 16:18 WBC RBC Hgb Hct MCV MCH MCHC RDW Plt Count MPV Sodium Potassium Chloride Carbon Dioxide BUN Creatinine Est GFR ( Amer) Est GFR (Non-Af Amer) BUN/Creatinine Ratio Glucose POC Glucose 186 H 111 H 259 H Calculated Osmolality Calcium 11/30/17 11/30/17 11/30/17 02:51 03:00 03:00 WBC 13.2 H RBC 3.09 L Hgb 8.5 L Hct 27.8 L MCV 90.0 MCH 27.5 L MCHC 30.6 L RDW 15.2 H Plt Count 179 MPV 9.9 Sodium 131 L Potassium 4.5 Chloride 95 L Carbon Dioxide 27 BUN 24 H Creatinine 3.40 H Est GFR ( Amer) 17 L Est GFR (Non-Af Amer) 14 L BUN/Creatinine Ratio 7 Glucose 194 H POC Glucose 185 H Calculated Osmolality 281 Calcium 9.1 Cultures: Cultures 11/28/17 17:50 Urine Culture - Preliminary Urine,Catheterized Enterococcus species 11/29/17 09:05 Urine Culture - Preliminary Urine,Catheterized Enterococcus species - Impressions Impressions Chest X-Ray 11/30/17 05:00 IMPRESSION: 1. Minimal bibasilar atelectasis. 2. Stable mild enlargement of the cardiac silhouette. D/ / Piyush Cameron MD / Piyush Cameron MD Interpreting Provider: Piyush Cameron MD Exam - Constitutional Vitals: Temp Pulse Resp BP Pulse Ox 97.5 F L 82 17 98/54 100 11/30/17 07:26 11/30/17 07:26 11/30/17 07:26 11/30/17 07:26 11/30/17 07:26 - Additional findings Additional findings: General: Cooperative, pleasant, no acute distress, alert and oriented 3, answers questions appropriately HEENT: Normocephalic, atraumatic, Conjunctiva pink, sclera anicteric, oral mucosa moist, no orophargeal erythema or exudates Respiratory: No accessory muscle usage, clear to auscultation bilaterally, no wheezes/rhonchi/rales appreciated Cardiovascular: Regular rate and rhythm, S1 and S2 present, no murmurs/rubs/ gallops/clicks appreciated GI/abdominal: Nondistended, mild tenderness to palpation in lower abdomen, soft , normal bowel sounds, no peritoneal signs Extremities: No calf tenderness, 1+ pedal edema appreciated, warm, lower extremity pulses palpable and symmetrical Neurological: Alert and oriented 3, no facial droop, no focal deficits Skin: Dry, intact, normal color Consult Discharge Plan - Plan Referrals: Tristen Quintana MD [Primary Care Provider] - - Attending Attestation I examined this patient and my medical decision-making was reviewed with the Resident Physician. I agree with the documented findings, disposition and treatment plan as described except to the extent set forth below.
--- NOTE | 2017-11-30 11:41 | Nephrology Progress Note ---
<Cammie Hare - Last Filed: 11/30/17 11:44> Date of Encounter: 11/30/17 Time of Encounter: 11:38 - Assessment and Plan (1) ESRD (end stage renal disease) on dialysis Status: Acute Plan for HD tomorrow Avoid nephrotoxins if possible (2) UTI (urinary tract infection) Status: Acute per primary/infectious disease teams From a kidney standpoint ok for CT scan with contrast since patient has very little to no urinary output, so relatively no concern of decreasing residual kidney function Qualifiers: Urinary tract infection type: acute cystitis Hematuria presence: with hematuria Qualified Code(s): N30.01 - Acute cystitis with hematuria (3) Anemia Status: Chronic Hgb 8.5 Goal hgb 10-11 Transfuse per parameters Qualifiers: Anemia type: due to chronic kidney disease Chronic kidney disease stage: on chronic dialysis Qualified Code(s): N18.6 - End stage renal disease; D63.1 - Anemia in chronic kidney disease; Z99.2 - Dependence on renal dialysis Subjective Principal diagnosis: ESRD on dialysis, hyponatremia, UTI Interval history: Patient seen and examined. Sitting up in chair, alert and oriented today. Objective - Vital Signs Vital signs: Vital Signs Temp Pulse Resp BP Pulse Ox 11/30/17 11:27 98.0 F 83 17 118/48 99 11/30/17 07:26 97.5 F L 82 17 98/54 100 11/30/17 03:15 98.1 F 76 18 146/69 96 11/30/17 00:38 98.3 F 79 18 121/62 98 11/29/17 21:56 98 11/29/17 21:44 97 11/29/17 19:39 98.7 F 87 18 107/67 98 11/29/17 16:14 98.6 F 84 10 105/62 93 11/29/17 14:10 99.3 F 20 110/63 11/29/17 13:55 118/64 11/29/17 13:40 103/53 11/29/17 13:25 109/71 11/29/17 13:10 104/52 11/29/17 12:55 120/68 11/29/17 12:40 119/51 11/29/17 12:25 131/54 11/29/17 12:10 130/62 11/29/17 11:55 129/61 11/29/17 11:40 133/59 Intake and Output 11/29/17 11/30/17 11/30/17 23:59 07:59 15:59 Intake Total 100 / 100 200 / 200 480 / 480 Output Total 0 / 0 0 / 0 Balance 100 / 100 200 / 200 480 / 480 Intake: IV Fluids 100 / 100 Diflucan Premix 200 MG/100 ML 100 / 100 200 mg In 100 ml @ 100 mls/hr IVPB DAILY [facility] Rx#:[id number] Oral 0 / 0 200 / 200 480 / 480 Output: Urine 0 / 0 0 / 0 Other: Meal Breakfast Percent of Meal Consumed 100% Weight 104.4 kg Blood Glucose* 209 185 Patient Weight 11/30/17 23:59 Weight 104.4 kg - General Appearance General appearance: Present: obese EENT: Present: ATNC, mucous membranes moist, hearing intact, vision intact Neck: Present: supple Respiratory: Present: clear Cardiology: Present: no edema, normal S1, normal S2 Dialysis Vascular Access: Arteriovenous Fistula Gastrointestinal: Present: no tenderness, no guarding Integumentary: Present: warm and dry Neurologic: Present: alert and oriented x3 Psychiatric: Present: mood/affect appropriate, cooperative - Lab 11/30/17 03:00 11/30/17 03:00 Most recent lab results Calcium 9.1 mg/dL (8.6-10.3) 11/30/17 03:00 Magnesium 1.5 mg/dL (1.6-2.6) L 11/25/17 12:21 Urine Sodium 62.8 mEq/L 11/26/17 08:30 Consult Discharge Plan - Plan Additional Instructions: Follow-up with urology within the next 2 weeks. Complete antibiotics, did not take amitriptyline while being on Zyvox. Follow-up with primary care physician within the next 7 days. Continue dialysis. Use insulin sliding scale at home and Levemir 5 units twice a day. Referrals: Tristen Quintana MD [Primary Care Provider] - 12/14/17 1:45 pm (Please follow up as schedule...) Naren Garcia MD [Partnered Physician] - 12/21/17 11:00 am (please follow up a schedule...) Prescriptions: Insulin DETEMIR [Levemir] 5 unit SQ BID 30 Days #1 [id number] Linezolid [Zyvox] 600 mg PO BID #10 tablet <Maura Mendezbjorn Rivers - Last Filed: 12/13/17 16:13> Date of Encounter: 11/30/17 - Assessment and Plan (1) ESRD (end stage renal disease) on dialysis Status: Acute (2) Hyponatremia Status: Acute (3) Anemia Status: Chronic Qualifiers: Anemia type: due to chronic kidney disease Chronic kidney disease stage: on chronic dialysis Qualified Code(s): N18.6 - End stage renal disease; D63.1 - Anemia in chronic kidney disease; Z99.2 - Dependence on renal dialysis Objective - Lab 12/06/17 03:35 12/07/17 04:52 Most recent lab results Calcium 9.5 mg/dL (8.6-10.3) 12/07/17 04:52 Magnesium 2.0 mg/dL (1.6-2.6) 12/01/17 06:31 Urine Sodium 62.8 mEq/L 11/26/17 08:30 - Attending Attestation I examined this patient and my medical decision-making was reviewed with the Resident Physician/APPLICATIONS ENGINEERING MANAGER. I agree with the documented findings, disposition and treatment plan as described except to the extent set forth below. Pt seen and examined with no new complaints. Next HD planned tomorrow. Lytes stable. Hgb noted at 8.5, will monitor. Continue renal diet. Will continue to support overall during hospital stay.
--- NOTE | 2017-11-30 15:22 | Internal Med Progress Note ---
Date of Encounter: 11/30/17 Time of Encounter: 10:00 - Assessment and plan (1) UTI (urinary tract infection) Current Visit: Yes Status: Acute Assessment and plan: Mental status appears to be approaching baseline. She is currently on IV abx. Urine cx with Enterococcus. Appreciate ID input. CT scan ordered. Qualifiers: Urinary tract infection type: acute cystitis Hematuria presence: with hematuria Qualified Code(s): N30.01 - Acute cystitis with hematuria (2) Acute metabolic encephalopathy Current Visit: No Status: Acute Assessment and plan: Seems to be slowly improving Continue plan of care as is for now. (3) Diastolic CHF Current Visit: No Status: Chronic Assessment and plan: Continue to monitor fluid status. Qualifiers: Heart failure chronicity: chronic Qualified Code(s): I50.32 - Chronic diastolic (congestive) heart failure (4) Hyperglycemia due to type 2 diabetes mellitus Current Visit: No Status: Chronic Assessment and plan: Continue to monitor sugars and adjust coverage. Qualifiers: Diabetes mellitus exterminator termite insulin use: with fpc use Qualified Code( s): E11.65 - Type 2 diabetes mellitus with hyperglycemia; Z79.4 - exterminator helper ( 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 of insulin (5) Atrial fibrillation Current Visit: No Status: Chronic Assessment and plan: Continue home meds. Qualifiers: Atrial fibrillation type: paroxysmal Qualified Code(s): I48.0 - Paroxysmal atrial fibrillation (6) DESHAWN (obstructive sleep apnea) Current Visit: No Status: Chronic Assessment and plan: Chronic issue (7) HTN (hypertension) Current Visit: No Status: Chronic Assessment and plan: Stable Qualifiers: Hypertension type: essential hypertension Qualified Code(s): I10 - Essential (primary) hypertension (8) ESRD (end stage renal disease) Current Visit: No Status: Chronic Assessment and plan: Per nephrology (9) CAD (coronary artery disease) Current Visit: No Status: Chronic Assessment and plan: Chronic issue Qualifiers: Coronary Disease-Associated Artery/Lesion type: [place] artery [place] vs. transplanted heart: [place] heart Associated angina: without angina Qualified Code(s): I25.10 - Atherosclerotic heart disease of [place] coronary artery without angina pectoris (10) Tobacco abuse Current Visit: No Status: Chronic Assessment and plan: Counselling. - Subjective Interval history: Ms Riley is currently admitted for UTI with hx of MDRO in the past. She remains moderate to high risk due to potential for worsening clinical status. Ms Riley is up in the chair. She is receiving IV antifungal at this time. No fever or chills. Denies pain currently. No CP or SOB. - Constitutional Vitals: Temp Pulse Resp BP Pulse Ox 98.0 F 83 17 118/48 99 11/30/17 11:27 11/30/17 11:27 11/30/17 11:27 11/30/17 11:27 11/30/17 11:27 General appearance: Present: A&O X 3 - Head Head exam: Present: atraumatic, normocephalic - Eye Eye exam: Present: EOMI, conjuntiva pink - ENT ENT exam: Present: mucous membranes dry - Respiratory Respiratory exam: Present: rhonchi, wheezes - Cardiovascular Cardiovascular exam: Present: distant heart sounds, RRR - GI/Abdominal GI/Abdominal exam: Present: soft. Absent: tenderness - Extremities Exam Extremities exam: Present: warm - Neurological Exam Neurological exam: Present: alert, oriented X3 - Skin Skin exam: Present: warm. Absent: rash Internal Medicine: Result - Labs CBC & Chem 7: 11/30/17 03:00 11/30/17 03:00 Labs: Short CBC 11/30/17 Range/Units 03:00 WBC 13.2 H (4.3-11.1) K/mcL Hgb 8.5 L (11.5-15.4) g/dL Hct 27.8 L (35.3-44.9) % Plt Count 179 (140-400) K/mcL BMP 11/30/17 03:00 Sodium 131 L Potassium 4.5 Chloride 95 L Carbon Dioxide 27 BUN 24 H Creatinine 3.40 H Glucose 194 H Calcium 9.1 - Impressions Impressions Chest X-Ray 11/30/17 05:00 IMPRESSION: 1. Minimal bibasilar atelectasis. 2. Stable mild enlargement of the cardiac silhouette. D/ / Piyush Cameron MD / Piyush Cameron MD Interpreting Provider: Piyush Cameron MD Consult Discharge Plan - Plan Referrals: Tristen Quintana MD [Primary Care Provider] -
--- NOTE | 2017-11-30 19:34 | Urology - Consult Note ---
Date of Encounter: 12/01/17 Time of Encounter: 19:31 - Assessment and Plan (1) Hydronephrosis Current Visit: Yes Status: Acute Assessment and plan: I reviewed the recent CT scan images and feel that the hydronephrosis is stable compared to previous imaging but the small collection of air in the collecting system is new. I suspect recent catheter and persistant bladder infection as resulted in retrograde migration of infection. Although the patient is not acutely ill, I do not feel she will adequately recover without placement of a ureteral stent. This will decompress the system and may help treat the infection. At the same time I suspect her urinary system is colonized with the resistant organism and complete clearance is unlikely with her comordities and renal failure. Resolution is unlikely and improvement in her overall health is unlikely. Because of multiple medical issues I plan to attempt placement at bedside to minimize risk of anesthesia. patient is amenable to this plan. consent was signed. will work around HD schedule Qualifiers: Hydronephrosis type: unspecified Qualified Code(s): N13.30 - Unspecified hydronephrosis Urology CN:HPI Consult date: 11/30/17 Reason for consult Urology: Hydronephrosis History of present illness: Patient known to the service. Known right hydronephrosis - at least since October. Planned outpatient ureteroscopy and stent placement. Previous ABD pain and incomplete emptying which resolved with cath placement. currently admitted with flank pain and resistant UTI. CT scan with moderate hydronephrosis and small air in collecting system. Past Med Surg Social Fam HX - Past Medical History Medical history: COPD (Not oxygen dependent), coronary artery disease (Status post stents and CABG), CVA, DVT, dialysis (End-stage renal disease, followed by Dr. Rivers, dialyses Wednesdays and Fridays), GERD, GI bleed, hyperlipidemia, hypertension, peripheral artery disease, other (Neuropathy, UTIs with Klebsiella and Escherichia coli ESBL, tobacco use, sacral ulcer stage II, osteoarthritis, depression) Psychiatric history: anxiety, depression, schizophrenia, previous psychiatric hospitalization, other - Past Surgical History Surgical History: angioplasty/stent, appendectomy, cholecystectomy, coronary bypass (CABG), hysterectomy, knee replacement, other, IVC filter - Social History Smoking Status: Current every day smoker Packs per day: 1 pack per day Smokeless Tobacco Status: No Alcohol use: none Drug use: none - Family History Father Family Member Ethnicity: Non- Living Status: Hx Family Cardiac Disorders: Yes (CAD, [place]) Hx Family Cancer: Yes (Polycythemia) Hx Family Endocrine Disorder: Yes (DM) Mother Family Member Ethnicity: Non- Living Status: Still Living Hx Family Respiratory Disorders: Yes (End stage COPD) Brother Family Member Ethnicity: Non- Living Status: Still Living Sister Adopted: No Age: 61 Family Member Ethnicity: Non- Living Status: Still Living Hx Family Cardiac Disorders: No Hx Family Respiratory Disorders: No Hx Family Cancer: No Hx Family GI Disorders: No Hx Family Genitourinary Disorders: No Hx Family Endocrine Disorder: No Hx Family Musculoskeletal Disorders: No Hx Family Neuromuscular Disorders: No Hx Family Neurologic Disorders: No Hx Family HEENT Disorders: No Hx Family Autoimmune Disorders: No Hx Family Reproductive Disorders: No Hx Family Psychosocial Disorders: No Hx Family Medical Disorders: No Medications and Allergies Clopidogrel [Plavix] 75 mg PO DAILY 05/11/15 [History] Omeprazole [PriLOSEC] 20 mg PO BID 05/11/15 [History] Colestipol HCl [Colestid] 1 gm PO BID 06/12/15 [History] Carvedilol 12.5 mg PO BID 10/28/15 [History] Calcium Acetate [Phos-LO] 1,334 mg PO TIDWM 09/06/16 [History] Folic Acid/Vit Bcomp,C [Renal Vitamin Tablet] 0.8 mg PO DAILY 04/15/17 [History] ARIPiprazole [Abilify] 10 mg PO DAILY 09/13/17 [History] Amitriptyline HCl 100 mg PO HS 09/13/17 [History] Aspirin Enteric Coated [Aspirin EC] 81 mg PO DAILY 09/13/17 [History] Budesonide/Formoterol 160/4.5 [Symbicort 160/4.5] 2 puff IH BIDR 09/13/17 [ History] Cholecalciferol (Vitamin D3) [Vitamin D3] 50,000 unit PO TH 09/13/17 [History] Lidocaine/Prilocaine CREAM [Emla] 1 appl TP AD PRN 09/13/17 [History] OxyCODONE/APAP 10/325 [Percocet 10/325 MG] 1 tab PO Q6H PRN 09/13/17 [History] Oxygen 2 l NS AD 09/13/17 [History] Sennosides [Senna] 8.6 mg PO BID 09/13/17 [History] Sevelamer [Renvela] 800 mg PO TIDWM 09/13/17 [History] Albuterol Neb [AccuNeb] 0.63 mg IH Q6H PRN 10/18/17 [History] Gabapentin [Neurontin] 100 mg PO TID #60 capsule 10/21/17 [Rx] Rosuvastatin [Crestor] 10 mg PO HS #15 tablet 10/21/17 [Rx] Docusate Sodium [Colace] 100 mg PO BID #60 capsule 10/26/17 [Rx] metOLazone [Zaroxolyn] 1 tab PO DAILY 10/26/17 [History] Collagenase Oint [Santyl] 1 appl TP AD 11/11/17 [History] Oxybutynin [Ditropan] 5 mg PO TID 11/11/17 [History] Isosorbide MONOnitrate (24 HR) [Imdur] 30 mg PO DAILY #30 tab.er.24h 11/19/17 [ Rx] amLODIPine [Norvasc] 10 mg PO DAILY #30 tablet 11/19/17 [Rx] Insulin LISPRO [Humalog Kwikpen U-100] 35 unit SQ ACHS 11/25/17 [History] Morphine Sulfate SR (12 HR) [MS Contin] 1 tab PO Q12HR 11/25/17 [History] 3 Allergy/AdvReac Type Severity Reaction Status Date / Time No Known Allergies Allergy Verified 11/24/17 09:01 Review of Systems - Constitutional fatigue, malaise - Genitourinary Genitourinary: flank pain Exam Initial Vital Signs Temp Pulse Resp BP Pulse Ox 98.6 F 92 18 155/87 95 11/25/17 11:49 11/25/17 11:49 11/25/17 11:49 11/25/17 11:49 11/25/17 11:49 - General physical appearance Present: chronically ill - Abdomen Abdomen: Present: soft, suprapubic tenderness. Absent: masses Urology Results - Labs 11/30/17 03:00 11/30/17 03:00 Abnormal lab results WBC 13.2 K/mcL (4.3-11.1) H 11/30/17 03:00 RBC 3.09 M/mcL (3.82-4.97) L 11/30/17 03:00 Hgb 8.5 g/dL (11.5-15.4) L 11/30/17 03:00 Hct 27.8 % (35.3-44.9) L 11/30/17 03:00 MCH 27.5 pg (28.0-33.3) L 11/30/17 03:00 MCHC 30.6 g/dL (31.6-35.5) L 11/30/17 03:00 RDW 15.2 % (11.5-14.5) H 11/30/17 03:00 Neutrophils # 13.3 K/mcL (1.6-8.9) H 11/25/17 12:21 Sodium 131 mEq/L (136-145) L 11/30/17 03:00 Chloride 95 mEq/L (98-107) L 11/30/17 03:00 BUN 24 mg/dL (8-23) H 11/30/17 03:00 Creatinine 3.40 mg/dL (0.60-1.20) H 11/30/17 03:00 Est GFR ( Amer) 17 (> 60) L 11/30/17 03:00 Est GFR (Non-Af Amer) 14 (> 60) L 11/30/17 03:00 Glucose 194 mg/dL (70-105) H 11/30/17 03:00 POC Glucose 185 (58-89) H 11/30/17 02:51 Magnesium 1.5 mg/dL (1.6-2.6) L 11/25/17 12:21 Beta-Hydroxybutyric Acd < 0.01 mmol/L (0.02-0.27) L 11/25/17 12:21 Urine Clarity Turbid (Clear) A 11/26/17 08:30 Urine Protein >=300 mg/dL (Neg-Trace) H 11/26/17 08:30 Urine Ketones 15 mg/dL (Negative) H 11/26/17 08:30 Urine Blood Large (Negative) H 11/26/17 08:30 Urine Nitrite Positive (Negative) A 11/26/17 08:30 Urine Bilirubin Large (Negative) H 11/26/17 08:30 Ur Leukocyte Esterase Large (Negative) H 11/26/17 08:30 Urine Microscopic WBC TNTC per hpf (0-3) H 11/26/17 08:30 Urine Bacteria Many per hpf (None-Few) H 11/26/17 08:30 Ur Culture Indicated? YES (NO) A 11/26/17 08:30 Diabetes panel 11/30/17 Range/Units 03:00 Sodium 131 L (136-145) mEq/L Potassium 4.5 (3.5-5.1) mEq/L Chloride 95 L (98-107) mEq/L Carbon Dioxide 27 (23-29) mEq/L BUN 24 H (8-23) mg/dL Creatinine 3.40 H (0.60-1.20) mg/dL Glucose 194 H (70-105) mg/dL Calcium 9.1 (8.6-10.3) mg/dL Calcium panel 11/30/17 Range/Units 03:00 Calcium 9.1 (8.6-10.3) mg/dL Pituitary panel 11/30/17 Range/Units 03:00 Sodium 131 L (136-145) mEq/L Potassium 4.5 (3.5-5.1) mEq/L Chloride 95 L (98-107) mEq/L Carbon Dioxide 27 (23-29) mEq/L BUN 24 H (8-23) mg/dL Creatinine 3.40 H (0.60-1.20) mg/dL Glucose 194 H (70-105) mg/dL Calcium 9.1 (8.6-10.3) mg/dL Adrenal panel 11/30/17 Range/Units 03:00 Sodium 131 L (136-145) mEq/L Potassium 4.5 (3.5-5.1) mEq/L Chloride 95 L (98-107) mEq/L Carbon Dioxide 27 (23-29) mEq/L BUN 24 H (8-23) mg/dL Creatinine 3.40 H (0.60-1.20) mg/dL Glucose 194 H (70-105) mg/dL Calcium 9.1 (8.6-10.3) mg/dL All other labs normal. Consult Discharge Plan - Plan Referrals: Tristen Quintana MD [Primary Care Provider] -
[2017-12-01] MEDS: WATER FOR INJ IR SCH ×2 (03:54→20:12)
[2017-12-01] MEDS: GENTAMICIN IR SCH ×2 (03:54→20:12)
[2017-12-01] MEDS: *HR* Heparin 5,000 UNIT/ML VIAL SQ SCH ×2 (05:15→17:34)
[2017-12-01 06:44] LABS: Hematocrit 27.3 % (35.3-44.9); Hemoglobin 8.3 g/dL (11.5-15.4); Mean Corpuscular HGB Conc 30.4 g/dL (31.6-35.5); Mean Corpuscular Hemoglobin 27.3 pg (28.0-33.3); Mean Corpuscular Volume 89.8 fL (83.0-100.0); Mean Platelet Volume 9.6 fL (9.4-12.4); Platelet Count 194 K/mcL (140-400); Red Blood Count 3.04 M/mcL (3.82-4.97); Red Cell Distribution Width 15.1 % (11.5-14.5)
[2017-12-01 07:24] LABS: Calcium 9.1 mg/dL (8.6-10.3); Potassium 4.3 mEq/L (3.5-5.1)
[2017-12-01] MEDS ORDERED: 0.9 % Sodium Chloride 1,000 ML ONE (07:36)
[2017-12-01] MEDS ORDERED: 0.9 % Sodium Chloride 250 ML IVC PRN (08:44)
[2017-12-01] MEDS ORDERED: 0.9 % Sodium Chloride 1,000 ML PRIME SCH (08:45)
[2017-12-01] MEDS: amLODIPine 5 MG TABLET PO SCH (08:59)
[2017-12-01] MEDS: Calcium Acetate 667 MG CAPSULE PO SCH ×3 (09:08→17:34)
[2017-12-01] MEDS: Insulin LISPRO 300 UNITS/3 ML VIAL SQ SCH ×4 (09:17→20:12)
[2017-12-01] MEDS: Aspirin Enteric Coated 81 MG Tablet PO SCH (09:26)
[2017-12-01] MEDS: Gabapentin 100 MG CAPSULE PO SCH ×3 (09:26→20:14)
[2017-12-01] MEDS: Insulin DETEMIR 100 UNIT/ML X5UNITS SQ SCH ×2 (09:27→20:13)
[2017-12-01] MEDS: metOLazone 2.5 MG TABLET PO SCH (09:27)
[2017-12-01] MEDS: ARIPiprazole 10 MG TABLET PO SCH (09:27)
[2017-12-01] MEDS: Nicotine 21 MG PATCH.TD24 TD SCH (09:29)
--- NOTE | 2017-12-01 10:13 | Nephrology Progress Note ---
Date of Encounter: 12/01/17 Time of Encounter: 10:11 - Assessment and Plan (1) UTI (urinary tract infection) Current Visit: Yes Status: Acute Urine with VRE. On antimicrobial treatment. Management per primary team. Qualifiers: Urinary tract infection type: acute cystitis Hematuria presence: with hematuria Qualified Code(s): N30.01 - Acute cystitis with hematuria (2) ESRD (end stage renal disease) on dialysis Current Visit: No Status: Acute HD MWF Renal diet Renal dose medications. Additional HD/UF treatment as needed. (3) Diabetes Current Visit: No Status: Chronic Per primary team. Qualifiers: Diabetes mellitus type: type 2 Diabetes mellitus complication status: with kidney complications Diabetes mellitus complication detail: with chronic kidney disease Diabetes mellitus mcc insulin use: with predatory animal exterminator use Chronic kidney disease stage: on chronic dialysis Qualified Code(s): E11.22 - Type 2 diabetes mellitus with diabetic chronic kidney disease; N18.6 - End stage renal disease; Z99.2 - Dependence on renal dialysis; Z99.2 - Dependence on renal dialysis; Z99.2 - Dependence on renal dialysis; N18.6 - End stage renal disease; N18.6 - End stage renal disease; N18.6 - End stage renal disease ; Z79.4 - exterminator helper termite (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 of insulin; Z79.4 - shelter (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 of insulin; Z79.4 - shelter (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 of insulin; Z79.4 - exterminator helper termite ( 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 of insulin; Z99.2 - Dependence on renal dialysis (4) HTN (hypertension) Current Visit: No Status: Chronic Blood pressure controlled. Qualifiers: Hypertension type: essential hypertension Qualified Code(s): I10 - Essential (primary) hypertension (5) Emphysematous pyelitis Current Visit: Yes Status: Acute Per urology and primary team. Plan for stent placement today. Continue antimicrobial therapy. Subjective Principal diagnosis: ESRD on dialysis, hyponatremia, UTI Interval history: Patient was seen on dialysis. She has no new complaint. Objective - Vital Signs Vital signs: Vital Signs Temp Pulse Resp BP Pulse Ox 12/01/17 07:14 97.4 F L 78 18 132/56 97 12/01/17 03:46 97.3 F L 67 18 122/54 95 11/30/17 23:23 97.4 F L 76 18 139/62 99 11/30/17 18:58 97.5 F L 62 15 116/53 97 11/30/17 16:16 97.3 F L 66 12 127/55 100 11/30/17 11:27 98.0 F 83 17 118/48 99 Intake and Output 11/30/17 12/01/17 12/01/17 23:59 07:59 15:59 Intake Total 800 / 800 Balance 800 / 800 Intake: Oral 800 / 800 Other: # Voids 1 Weight 105.2 kg Blood Glucose* 170 222 Patient Weight 12/01/17 23:59 Weight 105.2 kg - General Appearance General appearance: Present: well-developed, well-nourished EENT: Present: ATNC Cardiology: Present: regular rate Dialysis Vascular Access: Arteriovenous Fistula Integumentary: Present: warm and dry Neurologic: Present: alert and oriented x3 Psychiatric: Present: mood/affect appropriate - Lab 12/01/17 06:31 12/01/17 06:31 Most recent lab results Calcium 9.1 mg/dL (8.6-10.3) 12/01/17 06:31 Magnesium 2.0 mg/dL (1.6-2.6) 12/01/17 06:31 Urine Sodium 62.8 mEq/L 11/26/17 08:30 Consult Discharge Plan - Plan Referrals: Tristen Quintana MD [Primary Care Provider] -
[2017-12-01] MEDS: AMPHOTERICIN B IR SCH (11:43)
[2017-12-01] MEDS: WATER FOR IRRIGATION IR SCH (11:43)
[2017-12-01] MEDS: Fluconazole 200 MG/100 ML 200 MG/100 ML BAG IVPB SCH (11:57)
--- NOTE | 2017-12-01 12:50 | Infectious Disease Progress No ---
Date of Encounter: 12/01/17 Time of Encounter: 12:48 - Assessment and Plan (1) Sepsis Current Visit: No Status: Resolved Patient had 1 SIRS criteria. UTI likely source. Resolved. Blood culture drawn 11/25/17 x 1 set is negative. Qualifiers: Sepsis type: sepsis due to unspecified organism Qualified Code(s): A41.9 - Sepsis, unspecified organism (2) UTI (urinary tract infection) Current Visit: No Status: Acute Causative organism VRE and unidentified GNR. History of ESBL Escherichia coli in urine Patient had received 5 days Meropenem during a prior hospitalization. Urology consulted and following. Appreciate recommendations. Planning for bedside cystoscopy with stent placement. Discontinue fluconazole. Start Daptomycin 6mg/kg IV Q48H. Continue ertapenem 500mg IV daily for now. Continue bladder irrigation with Gentamicin and Amphotericin which will help deliver medication directly to the bladder wall since the patient does not make urine. Duration of treatment depends on the clinical picture. Dose-adjust antibiotics for HD schedule. Will de-escalate antibiotics based on sensitivities. Check baseline CK level and stop Crestor. Qualifiers: Urinary tract infection type: acute cystitis Hematuria presence: without hematuria Qualified Code(s): N30.00 - Acute cystitis without hematuria (3) Hydronephrosis Current Visit: No Status: Acute CT abdomen and pelvis completed 11/30/17 showed slight interval worsening of the moderate right hydroureteronephrosis with increased urothelial thickening and periureteral stranding. There was also a new foci of gas within the upper pole of the right kidney concerning for emphysematous pyelitis. Urology consulted and recommendations appreciated. Plan for bedside ureteral stent placement. Qualifiers: Hydronephrosis type: unspecified Qualified Code(s): N13.30 - Unspecified hydronephrosis (4) Leukocytosis Current Visit: No Status: Resolved Resolved. Qualifiers: Leukocytosis type: unspecified Qualified Code(s): D72.829 - Elevated white blood cell count, unspecified (5) Lethargy Current Visit: Yes Status: Acute Patient had episode of lethargy on 11/28. Patient mentation improved with administration of Narcan. Episode of lethargy possibly due to medications and renal status. Concern during episode of lethargy patient had possible aspiration event. CXR did not show findings concerning for aspiration. Appears improved today. (6) ESRD (end stage renal disease) on dialysis Current Visit: No Status: Chronic Continued management per primary team. - Subjective Interval history: Patient seen and examined in the hemodialysis unit. No acute events noted overnight. Patient complains of lower abdominal pain. Denies any fevers or chills. Denies any chest pain, shortness of breath, or cough. Denies any current nausea, vomiting, diarrhea, or constipation. She reports she was able to eat most of her breakfast this morning. She is anuric. She denies the oral thrush or new skin lesions. Infect Dis PN-Objective Data - Labs CBC & Chem 7: 12/01/17 06:31 12/01/17 06:31 Labs: Laboratory Results - last 24 hr 11/29/17 11/30/17 11/30/17 19:44 07:27 11:55 WBC RBC Hgb Hct MCV MCH MCHC RDW Plt Count MPV Sodium Potassium Chloride Carbon Dioxide BUN Creatinine Est GFR ( Amer) Est GFR (Non-Af Amer) BUN/Creatinine Ratio Glucose POC Glucose 209 H 220 H 281 H Calculated Osmolality Calcium Magnesium 11/30/17 12/01/17 12/01/17 16:17 06:31 06:31 WBC 9.6 RBC 3.04 L Hgb 8.3 L Hct 27.3 L MCV 89.8 MCH 27.3 L MCHC 30.4 L RDW 15.1 H Plt Count 194 MPV 9.6 Sodium 129 L Potassium 4.3 Chloride 93 L Carbon Dioxide 27 BUN 35 H Creatinine 4.15 H Est GFR ( Amer) 13 L Est GFR (Non-Af Amer) 11 L BUN/Creatinine Ratio 8 Glucose 214 H POC Glucose 191 H Calculated Osmolality 282 Calcium 9.1 Magnesium 2.0 Cultures: Cultures 11/28/17 17:50 Urine Culture - Final Urine,Catheterized Vancomycin Resistant Enterococcus faecium Gram Negative Camacho 11/29/17 09:05 Urine Culture - Preliminary Urine,Catheterized Enterococcus species - Impressions Impressions Abdomen/Pelvis CT 11/30/17 13:25 IMPRESSION: 1. Slight interval worsening of moderate right hydroureteronephrosis. Urothelial thickening and periureteral stranding appears increased when compared to 10/24/2017 but otherwise similar in appearance from 10/28/2017. There is mild stranding along the superior aspect of the right kidney. There are also a few new foci of gas within the upper pole of the right kidney and may be within the complex cystic lesion versus calyx. Findings should be correlated with recent instrumentation. If no recent surgical procedure has been performed, findings could reflect emphysematous pyelitis in the appropriate clinical setting. Urothelial thickening and stranding favor an infectious or inflammatory process as well. 2. Small amount of gas within the bladder, also likely related to recent intervention. 3. Slight interval increase in size of retroperitoneal lymph nodes when compared to 09/29/2017 but not significantly changed from recent exams. These may be reactive. 4. Borderline splenomegaly. D/ / 11/30/2017 15:38:36 Amy Coates MD / [place] Interpreting Provider: Amy Coates MD Exam - Constitutional Vitals: Temp Pulse Resp BP Pulse Ox 98.2 F 80 16 125/59 99 12/01/17 11:47 12/01/17 11:47 12/01/17 11:47 12/01/17 11:47 12/01/17 11:47 General appearance: cooperative, no acute distress, obese - Head Head exam: Present: atraumatic, normal inspection, normocephalic - Eye Eye exam: Present: EOMI, normal appearance, PERRL Pupils: Present: normal accommodation - ENT ENT exam: Present: mucous membranes moist - Neck Neck exam: Present: normal inspection - Respiratory Respiratory exam: Present: CTAB. Absent: rales, respiratory distress, rhonchi, wheezes - Cardiovascular Cardiovascular exam: Present: RRR, +S1, +S2 - GI/Abdominal GI/Abdominal exam: Present: distended (Obese), normal bowel sounds, soft, tenderness (Bilateral lower quadrants) Additional comments: Three-way pereira catheter noted with Amphotericin infusing. Purulent urine noted in the pereira tubing. - Extremities Exam Extremities exam: Present: normal inspection. Absent: joint swelling, pedal edema, tenderness Additional comments: AV fistula noted to the LUE, currently accessed for HD. - Neurological Exam Neurological exam: Present: alert, oriented X3, no focal deficits - Psychiatric Psychiatric exam: Present: normal affect, normal mood - Skin Skin exam: Present: dry, intact, normal color, warm Consult Discharge Plan - Plan Referrals: Tristen Quintana MD [Primary Care Provider] -
[2017-12-01] MEDS: DAPTOMYCIN IVPB SCH (15:36)
[2017-12-01] MEDS: SODIUM CHLORIDE 0.9% IVPB SCH (15:36)
--- NOTE | 2017-12-01 15:50 | Internal Med Progress Note ---
Date of Encounter: 12/01/17 Time of Encounter: 15:49 - Assessment and plan (1) Emphysematous pyelitis Current Visit: Yes Status: Acute Assessment and plan: Acute emphysematous pyelitis on R. To have stent today. (2) VRE (vancomycin-resistant Enterococci) infection Current Visit: Yes Status: Acute Assessment and plan: Urine culture positive for VRE. On Daptomycin. (3) Hydronephrosis, right Current Visit: Yes Status: Acute Assessment and plan: To have stent placed today. (4) UTI (urinary tract infection) Current Visit: Yes Status: Acute Assessment and plan: Mental status continues to improve. She is currently on IV abx per ID service. Urine cx with gram neg linda and VRE. Qualifiers: Urinary tract infection type: acute cystitis Hematuria presence: with hematuria Qualified Code(s): N30.01 - Acute cystitis with hematuria (5) Acute metabolic encephalopathy Current Visit: No Status: Acute Assessment and plan: Continues to improve. (6) Diastolic CHF Current Visit: No Status: Chronic Assessment and plan: Continue to monitor fluid status. Qualifiers: Heart failure chronicity: chronic Qualified Code(s): I50.32 - Chronic diastolic (congestive) heart failure (7) Hyperglycemia due to type 2 diabetes mellitus Current Visit: No Status: Chronic Assessment and plan: Continue to monitor sugars and adjust coverage. Qualifiers: Diabetes mellitus usp insulin use: with usp use Qualified Code( s): E11.65 - Type 2 diabetes mellitus with hyperglycemia; Z79.4 - watermaster ( 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 of insulin; Z79.4 - correction (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 of insulin; Z79.4 - watermaster (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 of insulin; Z79.4 - watermaster (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 of insulin (8) Atrial fibrillation Current Visit: No Status: Chronic Assessment and plan: Continue home meds. Qualifiers: Atrial fibrillation type: paroxysmal Qualified Code(s): I48.0 - Paroxysmal atrial fibrillation (9) DESHAWN (obstructive sleep apnea) Current Visit: No Status: Chronic Assessment and plan: Chronic issue (10) HTN (hypertension) Current Visit: No Status: Chronic Assessment and plan: Stable Qualifiers: Hypertension type: essential hypertension Qualified Code(s): I10 - Essential (primary) hypertension (11) ESRD (end stage renal disease) Current Visit: No Status: Chronic Assessment and plan: Per nephrology (12) CAD (coronary artery disease) Current Visit: No Status: Chronic Assessment and plan: Chronic issue Qualifiers: Coronary Disease-Associated Artery/Lesion type: [place] artery [place] vs. transplanted heart: [place] heart Associated angina: without angina Qualified Code(s): I25.10 - Atherosclerotic heart disease of [place] coronary artery without angina pectoris (13) Tobacco abuse Current Visit: No Status: Chronic Assessment and plan: Counselling. (14) Sepsis Current Visit: No Status: Resolved Assessment and plan: On admission had fever and leukocytosis. Presumed due to UTI. Has resolved now. Qualifiers: Sepsis type: sepsis due to unspecified organism Qualified Code(s): A41.9 - Sepsis, unspecified organism - Subjective Interval history: Ms Riley is currently admitted for UTI with hx of MDRO in the past. CT scan shows hydronephrosis on R and most likely emphysematous pyelitis. She remains moderate to high risk due to potential for worsening clinical status. Ms Riley had dialysis today. She is feeling tired at this time. No fever or chills at this time. CT abnormal and she is to have ureteral stent today. No GI issues. Abx changed today due to urine culture results. - Constitutional Vitals: Temp Pulse Resp BP Pulse Ox 98.1 F 77 18 120/82 96 12/01/17 15:01 12/01/17 15:01 12/01/17 15:01 12/01/17 15:01 12/01/17 15:01 General appearance: Present: A&O X 3 - Head Head exam: Present: normocephalic - Eye Eye exam: Present: EOMI, conjuntiva pink - ENT ENT exam: Present: mucous membranes dry - Respiratory Respiratory exam: Present: decreased breath sounds. Absent: rales, rhonchi, wheezes - Cardiovascular Cardiovascular exam: Present: distant heart sounds, RRR. Absent: tachycardia - GI/Abdominal GI/Abdominal exam: Present: soft. Absent: tenderness - Extremities Exam Extremities exam: Present: warm - Neurological Exam Neurological exam: Present: alert - Skin Skin exam: Present: dry, warm Internal Medicine: Result - Labs CBC & Chem 7: 12/01/17 06:31 12/01/17 06:31 Labs: Short CBC 12/01/17 Range/Units 06:31 WBC 9.6 (4.3-11.1) K/mcL Hgb 8.3 L (11.5-15.4) g/dL Hct 27.3 L (35.3-44.9) % Plt Count 194 (140-400) K/mcL [facility] 12/01/17 06:31 Sodium 129 L Potassium 4.3 Chloride 93 L Carbon Dioxide 27 BUN 35 H Creatinine 4.15 H Glucose 214 H Calcium 9.1 - Impressions Impressions Abdomen/Pelvis CT 11/30/17 13:25 IMPRESSION: 1. Slight interval worsening of moderate right hydroureteronephrosis. Urothelial thickening and periureteral stranding appears increased when compared to 10/24/2017 but otherwise similar in appearance from 10/28/2017. There is mild stranding along the superior aspect of the right kidney. There are also a few new foci of gas within the upper pole of the right kidney and may be within the complex cystic lesion versus calyx. Findings should be correlated with recent instrumentation. If no recent surgical procedure has been performed, findings could reflect emphysematous pyelitis in the appropriate clinical setting. Urothelial thickening and stranding favor an infectious or inflammatory process as well. 2. Small amount of gas within the bladder, also likely related to recent intervention. 3. Slight interval increase in size of retroperitoneal lymph nodes when compared to 09/29/2017 but not significantly changed from recent exams. These may be reactive. 4. Borderline splenomegaly. D/ / 11/30/2017 15:38:36 Amy Coates MD / [place] Interpreting Provider: Amy Coates MD Consult Discharge Plan - Plan Referrals: Tristen Quintana MD [Primary Care Provider] -
[2017-12-01] MEDS: *HR* OxyCODONE/APAP 5/325 TABLET PO PRN (17:33)
--- NOTE | 2017-12-01 17:39 | Urology Procedure Note ---
Date of Encounter: 12/01/17 Time of Encounter: 17:35 Procedures:Urology - Cystoscopy Time out performed: Yes Prophylactic Antibiotics Given: No (Given continuously) Reason for Cystoscopy: Right stent placement Preparation: Povidone-Iodine, Urojet Irrigation Fluid Used: Yes (Normal saline) Patient tolerated procedure: no complications Additional comments: Patient was prepped and draped in a sterile fashion. Stortz flexible cystoscope inserted into the bladder without difficulty. Patient had significant debris in her bladder. Luer-Nida syringe used to irrigate the cloudy debris. Eventually able to identify the right ureteral orifice. It was cannulated using a 5-Ind[place] ureteral catheter and zip wire. I was able to pass a 4.8 x 26 ureteral stent through the cystoscope into the ureter under direct vision. No fluoroscopy or x-ray was used in the procedure. I am fairly confident that the stent was placed on the right side based on the location in the bladder. At the same time the visibility was limited and I plan to obtain a post procedure x-ray to confirm proper placement. CT scan images were reviewed prior to the procedure which confirmed right sided hydronephrosis. Three-way Hawkins catheter was placed after the procedure.
[2017-12-01] MEDS ORDERED: Fluconazole 200 MG/100 ML 200 MG/100 ML BAG IVPB SCH (18:00)
[2017-12-02] MEDS: *HR* Heparin 5,000 UNIT/ML VIAL SQ SCH ×2 (04:37→18:12)
[2017-12-02] MEDS ORDERED: *HR* Belladonna Alkaloids/Opium 30 MG RECTAL SUPPOSITORY RC PRN (05:07)
[2017-12-02] MEDS: *HR* OxyCODONE/APAP 5/325 TABLET PO PRN ×2 (05:45→16:50)
[2017-12-02] MEDS: metOLazone 2.5 MG TABLET PO SCH (08:10)
[2017-12-02] MEDS: Aspirin Enteric Coated 81 MG Tablet PO SCH (08:10)
[2017-12-02] MEDS: Calcium Acetate 667 MG CAPSULE PO SCH ×3 (08:10→16:51)
[2017-12-02] MEDS: ARIPiprazole 10 MG TABLET PO SCH (08:11)
[2017-12-02] MEDS: amLODIPine 5 MG TABLET PO SCH (08:11)
[2017-12-02] MEDS: Insulin DETEMIR 100 UNIT/ML X5UNITS SQ SCH ×2 (08:11→20:45)
[2017-12-02] MEDS: WATER FOR IRRIGATION IR SCH (08:11)
[2017-12-02] MEDS: Insulin LISPRO 300 UNITS/3 ML VIAL SQ SCH ×4 (08:11→20:48)
[2017-12-02] MEDS: Gabapentin 100 MG CAPSULE PO SCH ×3 (08:11→20:44)
[2017-12-02] MEDS: AMPHOTERICIN B IR SCH (08:11)
[2017-12-02] MEDS: Nicotine 21 MG PATCH.TD24 TD SCH (08:12)
--- NOTE | 2017-12-02 09:51 | Nephrology Progress Note ---
Date of Encounter: 12/02/17 Time of Encounter: 09:48 - Assessment and Plan (1) ESRD (end stage renal disease) on dialysis Current Visit: No Status: Acute Plan for HD tomorrow Renal diet ordered Continue strict I/Os Avoid nephrotoxins if possible (2) UTI (urinary tract infection) Current Visit: Yes Status: Acute per primary/infectious disease teams Qualifiers: Urinary tract infection type: acute cystitis Hematuria presence: with hematuria Qualified Code(s): N30.01 - Acute cystitis with hematuria (3) Anemia Current Visit: No Status: Chronic No labs today CBC and BMP ordered Goal hgb 10-11 Transfuse per parameters Qualifiers: Anemia type: due to chronic kidney disease Chronic kidney disease stage: on chronic dialysis Qualified Code(s): N18.6 - End stage renal disease; D63.1 - Anemia in chronic kidney disease; Z99.2 - Dependence on renal dialysis Subjective Principal diagnosis: ESRD on dialysis, hyponatremia, UTI Interval history: Patient seen and examined. Sitting up in chair, alert and oriented today. Objective - Vital Signs Vital signs: Vital Signs Temp Pulse Resp BP Pulse Ox 12/02/17 06:36 97.9 F 78 18 129/67 95 12/02/17 04:06 97.7 F 73 12 149/71 97 12/02/17 00:27 97.4 F L 73 15 134/61 93 12/01/17 19:30 97.3 F L 84 18 146/71 96 12/01/17 15:01 98.1 F 77 18 120/82 96 12/01/17 12:30 97.4 F L 20 118/83 12/01/17 12:15 124/60 12/01/17 12:00 131/62 12/01/17 11:47 98.2 F 80 16 125/59 99 12/01/17 11:45 118/80 12/01/17 11:30 118/87 12/01/17 11:15 133/69 12/01/17 11:00 126/59 12/01/17 10:45 122/57 12/01/17 10:30 123/66 12/01/17 10:15 132/60 12/01/17 10:00 131/57 Intake and Output 12/01/17 12/02/17 12/02/17 23:59 07:59 15:59 Intake Total 1490.4 / 1490.4 Output Total 200 / 200 Balance 1290.4 / 1290.4 Intake: IV Fluids 90.4 / 90.4 Cubicin 630 MG In 0.9 % Sodium 90.4 / 90.4 Chloride 100 ML @ 200 mls/hr IVPB Q48H PENDING SALE TO [facility] Rx#:[id number] Oral 1400 / 1400 Output: Urine 0 / 0 Catheter 200 / 200 Urethral (Hawkins) 200 / 200 Other: Intake, CBI Fluid 600 Output, CBI Fluid 480 Weight 106 kg Blood Glucose* 169 192 Patient Weight 12/02/17 23:59 Weight 106 kg - General Appearance General appearance: Present: obese EENT: Present: ATNC, mucous membranes moist, hearing intact, vision intact Neck: Present: supple Respiratory: Present: clear Cardiology: Present: edema, regular rate, regular rhythm Dialysis Vascular Access: Arteriovenous Fistula Gastrointestinal: Present: no tenderness, no guarding, obese Integumentary: Present: warm and dry Neurologic: Present: alert and oriented x3 Psychiatric: Present: mood/affect appropriate, cooperative - Lab 12/01/17 06:31 12/01/17 06:31 Most recent lab results Calcium 9.1 mg/dL (8.6-10.3) 12/01/17 06:31 Magnesium 2.0 mg/dL (1.6-2.6) 12/01/17 06:31 Urine Sodium 62.8 mEq/L 11/26/17 08:30 Consult Discharge Plan - Plan Referrals: Tristen Quintana MD [Primary Care Provider] - (Please call upon discharge)
--- NOTE | 2017-12-02 10:01 | Infectious Disease Progress No ---
Date of Encounter: 12/02/17 Time of Encounter: 09:45 - Assessment and Plan (1) Sepsis Current Visit: No Status: Resolved Resolved No SIRS criteria present today Found to have E. coli ESBL and VRE Blood culture drawn 11/25/17 x 1 set is negative Qualifiers: Sepsis type: sepsis due to unspecified organism Qualified Code(s): A41.9 - Sepsis, unspecified organism (2) UTI (urinary tract infection) Current Visit: No Status: Acute Causative organism VRE and E. Coli ESBL Patient had received 5 days Meropenem during a prior hospitalization Appreciate recommendations Patient received stent yesteday FLuconazole stopped Check baseline CK level and stop Crestor Dose-adjust antibiotics for HD schedule Continue Daptomycin 6mg/kg IV Q48H. Continue ertapenem 500mg IV daily for now will consider stopping ertapenem if infection appears isolated to her bladder , will speak to urology Continue bladder irrigation with Gentamicin which will help deliver medication directly to the bladder wall since the patient does not make urine Can stop using amphotericin in bladder irrigation Will de-escalate antibiotics based on sensitivities Duration of treatment depends on the clinical picture Qualifiers: Urinary tract infection type: acute cystitis Hematuria presence: without hematuria Qualified Code(s): N30.00 - Acute cystitis without hematuria (3) Leukocytosis Current Visit: No Status: Acute Resolved Qualifiers: Leukocytosis type: unspecified Qualified Code(s): D72.829 - Elevated white blood cell count, unspecified (4) ESRD (end stage renal disease) on dialysis Current Visit: No Status: Chronic Continued management per primary team Dose medications per HD schedule (5) Lethargy Current Visit: Yes Status: Resolved Patient had episode of lethargy on 11/28. Patient mentation improved with administration of Narcan. Episode of lethargy possibly due to medications and renal status. Concern during episode of lethargy patient had possible aspiration event. CXR did not show findings concerning for aspiration. Appears improved today. - Subjective Interval history: Patient reports that she is having improvement in her abdominal pain, though reports that it is still present. She reports having some continued diaphoresis , but denies having fevers or chills. She states that she had some nausea 2 days ago, but has not had any since. She also reports continued constipation and has not had a bowel movement yet. Her WBC improved yesterday and has remained afebrile.. All her vitals have been stable in the last 24 hours. Infect Dis PN-Objective Data - Labs CBC & Chem 7: 12/03/17 05:02 12/03/17 05:02 Labs: Laboratory Results - last 24 hr 11/30/17 11/30/17 12/01/17 19:56 19:58 07:19 POC Glucose 177 H 170 H 222 H 12/01/17 12/01/17 12/02/17 11:39 19:38 07:17 POC Glucose 132 H 169 H 192 H Cultures: Cultures 11/28/17 17:50 Urine Culture - Final Urine,Catheterized Vancomycin Resistant Enterococcus faecium Escherichia coli ESBL 11/29/17 09:05 Urine Culture - Preliminary Urine,Catheterized Enterococcus species Exam - Constitutional Vitals: Temp Pulse Resp BP Pulse Ox 97.9 F 78 18 129/67 95 12/02/17 06:36 12/02/17 06:36 12/02/17 06:36 12/02/17 06:36 12/02/17 06:36 - Additional findings Additional findings: General: Cooperative, pleasant, no acute distress, alert and oriented 3, answers questions appropriately HEENT: Normocephalic, atraumatic, Conjunctiva pink, sclera anicteric, oral mucosa moist, no orophargeal erythema or exudates Respiratory: No accessory muscle usage, slight, diffuse wheeze present b/l Cardiovascular: Regular rate and rhythm, S1 and S2 present, no murmurs/rubs/ gallops/clicks appreciated GI/abdominal: Nondistended, mild tenderness to palpation in lower abdomen, soft , normal bowel sounds, no peritoneal signs Extremities: No calf tenderness, mild pedal edema appreciated, warm, lower extremity pulses palpable and symmetrical Neurological: Alert and oriented 3, no facial droop, no focal deficits Skin: Dry, intact, normal color Consult Discharge Plan - Plan Referrals: Tristen Quintana MD [Primary Care Provider] - (Please call upon discharge) - Attending Attestation I examined this patient and my medical decision-making was reviewed with the Resident Physician. I agree with the documented findings, disposition and treatment plan as described except to the extent set forth below. I had discussed the case with Dr. Lynch who did the procedure and inserted the stent. Patient had very thick material in the bladder. Very foul-smelling. Based on all these findings and the fact that he inserted the stent through the bladder to get the ureter I do recommend continuing IV antibiotics. We can stop the bladder irrigation. Duration of treatment 5 days from the stent placement.
--- NOTE | 2017-12-02 13:01 | Event Note ---
Date of Encounter: 12/02/17 Time of Encounter: 12:59 based on KUB, the stent is in good position. no further urology intervention at this time. stent can stay in place up to 6 months. will need followup as an outpt
--- NOTE | 2017-12-02 17:51 | Internal Med Progress Note ---
Date of Encounter: 12/02/17 Time of Encounter: 08:30 - Assessment and plan (1) Emphysematous pyelitis Current Visit: Yes Status: Acute Assessment and plan: Pt with acute emphysematous pyelitis. She is s/p stent yesterday. Currently on IV abx and bladder irrigation. ID for final abx plan. (2) VRE (vancomycin-resistant Enterococci) infection Current Visit: Yes Status: Acute Assessment and plan: Urine culture positive for VRE. On Daptomycin. (3) Infection due to ESBL-producing Escherichia coli Current Visit: Yes Status: Acute Assessment and plan: In urine. (4) Hydronephrosis, right Current Visit: Yes Status: Acute Assessment and plan: S/P ureteral stent. (5) UTI (urinary tract infection) Current Visit: Yes Status: Acute Assessment and plan: Mental status appears to be at baseline. She is currently on IV abx per ID service. Urine cx with ESBL E coli and VRE. Qualifiers: Urinary tract infection type: acute cystitis Hematuria presence: with hematuria Qualified Code(s): N30.01 - Acute cystitis with hematuria (6) Acute metabolic encephalopathy Current Visit: No Status: Resolved Assessment and plan: Appears to be baseline. (7) Diastolic CHF Current Visit: No Status: Chronic Assessment and plan: Continue to monitor fluid status. Qualifiers: Heart failure chronicity: chronic Qualified Code(s): I50.32 - Chronic diastolic (congestive) heart failure (8) Hyperglycemia due to type 2 diabetes mellitus Current Visit: No Status: Chronic Assessment and plan: Continue to monitor sugars and adjust coverage. Qualifiers: Diabetes mellitus ferry terminal supervisor insulin use: with fci use Qualified Code( s): E11.65 - Type 2 diabetes mellitus with hyperglycemia; Z79.4 - ferry terminal supervisor ( 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 of insulin; Z79.4 - detention (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 of insulin; Z79.4 - ferry terminal supervisor (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 of insulin; Z79.4 - ferry terminal supervisor (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 of insulin (9) Atrial fibrillation Current Visit: No Status: Chronic Assessment and plan: Continue home meds. Qualifiers: Atrial fibrillation type: paroxysmal Qualified Code(s): I48.0 - Paroxysmal atrial fibrillation (10) DESHAWN (obstructive sleep apnea) Current Visit: No Status: Chronic Assessment and plan: Chronic issue (11) HTN (hypertension) Current Visit: No Status: Chronic Assessment and plan: Stable Qualifiers: Hypertension type: essential hypertension Qualified Code(s): I10 - Essential (primary) hypertension (12) ESRD (end stage renal disease) Current Visit: No Status: Chronic Assessment and plan: Per nephrology (13) CAD (coronary artery disease) Current Visit: No Status: Chronic Assessment and plan: Chronic issue Qualifiers: Coronary Disease-Associated Artery/Lesion type: [place] artery [place] vs. transplanted heart: [place] heart Associated angina: without angina Qualified Code(s): I25.10 - Atherosclerotic heart disease of [place] coronary artery without angina pectoris (14) Tobacco abuse Current Visit: No Status: Chronic Assessment and plan: Counselling. (15) Sepsis Current Visit: No Status: Resolved Qualifiers: Sepsis type: sepsis due to unspecified organism Qualified Code(s): A41.9 - Sepsis, unspecified organism - Subjective Interval history: Ms Riley is currently admitted for UTI with hx of MDRO in the past. She remains moderate to high risk due to potential for worsening clinical status. Ms Riley is eating breakfast. She is tolerating IV abx and bladder instillation. No fever or chills. Urine growing VRE and ESBL E coli. No CP or SOB. - Constitutional Vitals: Temp Pulse Resp BP Pulse Ox 97.9 F 68 2 148/61 97 12/02/17 15:42 12/02/17 15:42 12/02/17 15:42 12/02/17 15:42 12/02/17 15:42 General appearance: Present: A&O X 3 - Head Head exam: Present: normocephalic - Eye Eye exam: Present: EOMI, conjuntiva pink - ENT ENT exam: Present: mucous membranes dry - Respiratory Respiratory exam: Present: decreased breath sounds, rhonchi - Cardiovascular Cardiovascular exam: Present: RRR. Absent: tachycardia - GI/Abdominal GI/Abdominal exam: Present: soft. Absent: tenderness - Extremities Exam Extremities exam: Present: warm. Absent: tenderness - Neurological Exam Neurological exam: Present: alert, oriented X3 - Skin Skin exam: Present: dry, warm Internal Medicine: Result - Labs CBC & Chem 7: 12/01/17 06:31 12/01/17 06:31 Labs: BMP 12/01/17 06:31 Sodium 129 L Potassium 4.3 Chloride 93 L Carbon Dioxide 27 BUN 35 H Creatinine 4.15 H Glucose 214 H Calcium 9.1 - Impressions Impressions KUB X-Ray 12/01/17 17:39 IMPRESSION: The right ureteral stent appears in appropriate position. D/ / Lenin Talamantes MD / Lenin Talamantes MD Interpreting Provider: Lenin Talamantes MD Consult Discharge Plan - Plan Referrals: Tristen Quintana MD [Primary Care Provider] - (Please call upon discharge)
[2017-12-02] MEDS: GENTAMICIN IR SCH (20:38)
[2017-12-02] MEDS: WATER FOR INJ IR SCH (20:38)
[2017-12-03] MEDS: *HR* Heparin 5,000 UNIT/ML VIAL SQ SCH ×2 (05:08→17:05)
[2017-12-03 05:19] LABS: Hemoglobin 9.2 g/dL (11.5-15.4); Mean Corpuscular HGB Conc 31.7 g/dL (31.6-35.5); Mean Corpuscular Hemoglobin 27.8 pg (28.0-33.3); Mean Corpuscular Volume 87.6 fL (83.0-100.0); Mean Platelet Volume 9.1 fL (9.4-12.4); Platelet Count 188 K/mcL (140-400); Red Blood Count 3.31 M/mcL (3.82-4.97); Red Cell Distribution Width 15.1 % (11.5-14.5)
[2017-12-03 05:46] LABS: Calcium 9.3 mg/dL (8.6-10.3); Potassium 4.4 mEq/L (3.5-5.1)
[2017-12-03] MEDS ORDERED: 0.9 % Sodium Chloride 2,000 ML ONE (07:19)
[2017-12-03] MEDS ORDERED: 0.9 % Sodium Chloride 250 ML IVC PRN (08:07)
--- NOTE | 2017-12-03 08:36 | Infectious Disease Progress No ---
Date of Encounter: 12/03/17 Time of Encounter: 08:35 - Assessment and Plan (1) Sepsis Current Visit: No Status: Resolved Resolved 1 SIRS criteria present: leukocytosis (though had procedure 2 days ago) Found to have E. coli ESBL and VRE positive urine culture as well as emphysematous pyelonephritis Blood culture drawn 11/25/17 x 1 set is negative Qualifiers: Sepsis type: sepsis due to unspecified organism Qualified Code(s): A41.9 - Sepsis, unspecified organism (2) UTI (urinary tract infection) Current Visit: No Status: Acute Causative organism VRE and E. Coli ESBL Patient had received 5 days Meropenem during a prior hospitalization Patient received stent on 12/01 Fluconazole stopped Check baseline CK level and stop Crestor Dose-adjust antibiotics for HD schedule Continue Daptomycin 6mg/kg IV Q48H. Continue ertapenem 500mg IV daily for now will consider stopping ertapenem if infection appears isolated to her bladder , will speak to urology Continue bladder irrigation with Gentamicin which will help deliver medication directly to the bladder wall since the patient does not make urine Will stop bladder irrigation Will de-escalate antibiotics based on sensitivities Continue ertapenem and daptomycin If planning discharge can switch to Zyvox and Bactrim through December 09 Duration of treatment depends on the clinical picture Qualifiers: Urinary tract infection type: acute cystitis Hematuria presence: without hematuria Qualified Code(s): N30.00 - Acute cystitis without hematuria (3) Leukocytosis Current Visit: No Status: Acute Elevation in WBC seen today, but patient underwent urological procedure on 12/01 Qualifiers: Leukocytosis type: unspecified Qualified Code(s): D72.829 - Elevated white blood cell count, unspecified (4) ESRD (end stage renal disease) on dialysis Current Visit: No Status: Chronic Continued management per primary team Dose medications per HD schedule (5) Lethargy Current Visit: Yes Status: Resolved Patient had episode of lethargy on 11/28. Patient mentation improved with administration of Narcan. Episode of lethargy possibly due to medications and renal status. Concern during episode of lethargy patient had possible aspiration event. CXR did not show findings concerning for aspiration. Appears improved today. - Subjective Interval history: Patient reports having continued improvement in her abdominal and bladder pain today, though it is still present. She does report that she has had resolution of her bladder spasms, but in the interim she has developed some hematuria ( though she did have a right ureteral stent placed by 12/01). She also reports continuation of mild nausea. She denies having any other problems: denies fever , chills, dyspnea, or chest pain. Her WBC is increased, but it is post procedure and has remained afebrile.. All her vitals have been stable in the last 24 hours. Infect Dis PN-Objective Data - Labs CBC & Chem 7: 12/03/17 05:02 12/03/17 05:02 Labs: Laboratory Results - last 24 hr 12/01/17 12/01/17 12/01/17 06:31 14:41 16:37 WBC RBC Hgb Hct MCV MCH MCHC RDW Plt Count MPV Sodium 129 L Potassium 4.3 Chloride 93 L Carbon Dioxide 27 BUN 35 H Creatinine 4.15 H Est GFR ( Amer) 13 L Est GFR (Non-Af Amer) 11 L BUN/Creatinine Ratio 8 Glucose 214 H POC Glucose 183 H 236 H Calculated Osmolality 282 Calcium 9.1 Magnesium 2.0 Creatine Kinase 11 L 12/02/17 12/03/17 12/03/17 20:08 05:02 05:02 WBC 12.4 H RBC 3.31 L Hgb 9.2 L Hct 29.0 L MCV 87.6 MCH 27.8 L MCHC 31.7 RDW 15.1 H Plt Count 188 MPV 9.1 L Sodium 126 L Potassium 4.4 Chloride 91 L Carbon Dioxide 25 BUN 36 H Creatinine 3.62 H Est GFR ( Amer) 15 L Est GFR (Non-Af Amer) 13 L BUN/Creatinine Ratio 10 Glucose 188 H POC Glucose 159 H Calculated Osmolality 275 L Calcium 9.3 Magnesium Creatine Kinase Cultures: Cultures 11/29/17 09:05 Urine Culture - Final Urine,Catheterized Enterococcus species 11/28/17 17:50 Urine Culture - Final Urine,Catheterized Vancomycin Resistant Enterococcus faecium Escherichia coli ESBL - Impressions Impressions KUB X-Ray 12/01/17 17:39 IMPRESSION: The right ureteral stent appears in appropriate position. D/ / Lenin Talamantes MD / Lenin Talamantes MD Interpreting Provider: Lenin Talamantes MD Exam - Constitutional Vitals: Temp Pulse Resp BP Pulse Ox 97.8 F 78 18 126/64 97 12/03/17 04:16 12/03/17 04:16 12/03/17 04:16 12/03/17 04:16 12/03/17 04:16 - Additional findings Additional findings: General: Cooperative, pleasant, no acute distress, alert and oriented 3, answers questions appropriately HEENT: Normocephalic, atraumatic, Conjunctiva pink, sclera anicteric, oral mucosa slightly dry Respiratory: No accessory muscle usage, slight, diffuse wheeze present b/l Cardiovascular: Regular rate and rhythm, S1 and S2 present, no murmurs/rubs/ gallops/clicks appreciated GI/abdominal: Nondistended, mild tenderness to palpation in lower abdomen, soft , normal bowel sounds, no peritoneal signs Extremities: No calf tenderness, mild pedal edema appreciated, warm, lower extremity pulses palpable and symmetrical, chronic lower extremity skin darkening Neurological: Alert and oriented 3, no facial droop, no focal deficits Skin: Dry, intact, normal color Consult Discharge Plan - Plan Referrals: Tristen Quintana MD [Primary Care Provider] - (Please call upon discharge) - Attending Attestation I examined this patient and my medical decision-making was reviewed with the Resident Physician. I agree with the documented findings, disposition and treatment plan as described except to the extent set forth below.
[2017-12-03] MEDS: WATER FOR IRRIGATION IR SCH (09:10)
[2017-12-03] MEDS: AMPHOTERICIN B IR SCH (09:10)
[2017-12-03] MEDS: Calcium Acetate 667 MG CAPSULE PO SCH ×3 (09:16→17:04)
[2017-12-03] MEDS: Insulin LISPRO 300 UNITS/3 ML VIAL SQ SCH ×4 (09:16→21:51)
[2017-12-03] MEDS: Aspirin Enteric Coated 81 MG Tablet PO SCH (09:17)
[2017-12-03] MEDS: ARIPiprazole 10 MG TABLET PO SCH (09:17)
[2017-12-03] MEDS: Nicotine 21 MG PATCH.TD24 TD SCH (09:20)
[2017-12-03] MEDS: Gabapentin 100 MG CAPSULE PO SCH ×3 (09:21→21:51)
[2017-12-03] MEDS: Insulin DETEMIR 100 UNIT/ML X5UNITS SQ SCH ×2 (09:22→21:50)
--- NOTE | 2017-12-03 12:26 | Nephrology Progress Note ---
Date of Encounter: 12/03/17 Time of Encounter: 12:23 - Assessment and Plan (1) ESRD (end stage renal disease) on dialysis Current Visit: No Status: Acute HD MWF Renal diet Renal dose medications. Additional HD/UF treatment as needed. Patient seen on dialysis today. (2) Emphysematous pyelitis Current Visit: Yes Status: Acute Per urology and primary team. S/P stent placement 12/03/2017 Continue antimicrobial therapy. (3) UTI (urinary tract infection) Current Visit: Yes Status: Acute Urine with VRE. On antimicrobial treatment. Management per primary team and urology. s/p ureteral stent. Qualifiers: Urinary tract infection type: acute cystitis Hematuria presence: with hematuria Qualified Code(s): N30.01 - Acute cystitis with hematuria (4) Diabetes Current Visit: No Status: Chronic Per primary team. Qualifiers: Diabetes mellitus type: type 2 Diabetes mellitus complication status: with kidney complications Diabetes mellitus complication detail: with chronic kidney disease Diabetes mellitus care home insulin use: with cooling pan tender use Chronic kidney disease stage: on chronic dialysis Qualified Code(s): E11.22 - Type 2 diabetes mellitus with diabetic chronic kidney disease; N18.6 - End stage renal disease; Z99.2 - Dependence on renal dialysis; Z99.2 - Dependence on renal dialysis; Z99.2 - Dependence on renal dialysis; N18.6 - End stage renal disease; N18.6 - End stage renal disease; N18.6 - End stage renal disease ; Z79.4 - event av operator (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 of insulin; Z79.4 - event av operator (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 of insulin; Z79.4 - care home (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 of insulin; Z79.4 - care home ( 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 of insulin; Z99.2 - Dependence on renal dialysis (5) HTN (hypertension) Current Visit: No Status: Chronic Blood pressure controlled. Qualifiers: Hypertension type: essential hypertension Qualified Code(s): I10 - Essential (primary) hypertension Subjective Principal diagnosis: ESRD on dialysis, hyponatremia, UTI Interval history: Patient was seen on dialysis. She has no new complaint. Objective - Vital Signs Vital signs: Vital Signs Temp Pulse Resp BP Pulse Ox 12/03/17 11:30 124/58 12/03/17 11:15 137/76 12/03/17 11:00 121/87 12/03/17 10:45 137/53 12/03/17 10:30 143/67 12/03/17 10:15 120/63 12/03/17 10:00 131/61 12/03/17 09:45 138/68 12/03/17 09:30 127/58 12/03/17 09:15 138/65 12/03/17 09:00 143/63 12/03/17 08:45 150/79 12/03/17 08:30 97.9 F 17 154/64 12/03/17 08:20 97.8 F 78 18 126/64 97 12/03/17 04:16 97.8 F 78 18 126/64 97 12/02/17 23:30 98 F 76 18 135/63 94 12/02/17 20:18 97.7 F 72 17 144/67 97 12/02/17 15:42 97.9 F 68 2 148/61 97 Intake and Output 12/02/17 12/03/17 12/03/17 23:59 07:59 15:59 Intake Total 100 / 100 840 / 840 Output Total 290 / 290 0 / 0 Balance -190 / -190 840 / 840 Intake: IV Fluids 100 / 100 INVanz 500 MG In 0.9 % Sodium 100 / 100 Chloride 100 ML @ 100 mls/hr IVPB Q24H [facility] Rx#:[id number] Oral 240 / 240 Intake, Rinseback and Flushes 600 / 600 Output: Urine 165 / 165 0 / 0 Catheter 125 / 125 Urethral (Hawkins) 125 / 125 Other: Intake, CBI Fluid 60 Meal Breakfast Percent of Meal Consumed 40% Output, CBI Fluid 60 Weight 105.8 kg 105.8 kg Blood Glucose* 159 174 128 Hemodialysis Net Fluid Removed 3940 (mL) Patient Weight 12/03/17 23:59 Weight 105.8 kg - General Appearance General appearance: Present: well-developed, well-nourished, obese EENT: Present: ATNC Neck: Present: supple Cardiology: Present: edema, regular rate Gastrointestinal: Present: obese Neurologic: Present: alert and oriented x3 Psychiatric: Present: mood/affect appropriate - Lab 12/03/17 05:02 12/03/17 05:02 Most recent lab results Calcium 9.3 mg/dL (8.6-10.3) 12/03/17 05:02 Magnesium 2.0 mg/dL (1.6-2.6) 12/01/17 06:31 Urine Sodium 62.8 mEq/L 11/26/17 08:30 Consult Discharge Plan - Plan Referrals: Tristen Quintana MD [Primary Care Provider] - (Please call upon discharge)
[2017-12-03] MEDS: amLODIPine 5 MG TABLET PO SCH (14:49)
[2017-12-03] MEDS: metOLazone 2.5 MG TABLET PO SCH (14:49)
[2017-12-03] MEDS: DAPTOMYCIN IVPB SCH (14:50)
[2017-12-03] MEDS: SODIUM CHLORIDE 0.9% IVPB SCH (14:50)
--- NOTE | 2017-12-03 17:24 | Internal Med Progress Note ---
Date of Encounter: 12/03/17 Time of Encounter: 10:00 - Assessment and plan (1) Emphysematous pyelitis Current Visit: Yes Status: Acute Assessment and plan: Pt with acute emphysematous pyelitis. She is s/p stent. Bladder irrigation has been stopped today. On IV abx at this time. Plan for Zyvox at discharge. (2) VRE (vancomycin-resistant Enterococci) infection Current Visit: Yes Status: Acute Assessment and plan: Urine culture positive for VRE. On Daptomycin. Zyvox at discharge (3) Infection due to ESBL-producing Escherichia coli Current Visit: Yes Status: Acute Assessment and plan: In urine. (4) Hydronephrosis, right Current Visit: Yes Status: Acute Assessment and plan: S/P ureteral stent. (5) UTI (urinary tract infection) Current Visit: Yes Status: Acute Assessment and plan: Mental status appears to be at baseline. Antibiotic adjustments. Bladder irrigation stopped today. Qualifiers: Urinary tract infection type: acute cystitis Hematuria presence: with hematuria Qualified Code(s): N30.01 - Acute cystitis with hematuria (6) Acute metabolic encephalopathy Current Visit: No Status: Resolved Assessment and plan: Appears to be baseline. (7) Diastolic CHF Current Visit: No Status: Chronic Assessment and plan: Continue to monitor fluid status. Qualifiers: Heart failure chronicity: chronic Qualified Code(s): I50.32 - Chronic diastolic (congestive) heart failure (8) Hyperglycemia due to type 2 diabetes mellitus Current Visit: No Status: Chronic Assessment and plan: Continue to monitor sugars and adjust coverage. 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 Qualifiers: Atrial fibrillation type: paroxysmal Qualified Code(s): I48.0 - Paroxysmal atrial fibrillation (10) DESHAWN (obstructive sleep apnea) Current Visit: No Status: Chronic Assessment and plan: Chronic issue (11) HTN (hypertension) Current Visit: No Status: Chronic Assessment and plan: Stable Qualifiers: Hypertension type: essential hypertension Qualified Code(s): I10 - Essential (primary) hypertension (12) ESRD (end stage renal disease) Current Visit: No Status: Chronic Assessment and plan: Per nephrology (13) CAD (coronary artery disease) Current Visit: No Status: Chronic Assessment and plan: Chronic issue Qualifiers: Coronary Disease-Associated Artery/Lesion type: [place] artery [place] vs. transplanted heart: [place] heart Associated angina: without angina Qualified Code(s): I25.10 - Atherosclerotic heart disease of [place] coronary artery without angina pectoris (14) Tobacco abuse Current Visit: No Status: Chronic Assessment and plan: Counselling. (15) Sepsis Current Visit: No Status: Resolved Assessment and plan: On admission had fever and leukocytosis. Presumed due to UTI. Has resolved now. Qualifiers: Sepsis type: sepsis due to unspecified organism Qualified Code(s): A41.9 - Sepsis, unspecified organism - Subjective Interval history: Ms Riley is currently admitted for UTI with hx of MDRO in the past. She remains moderate to high risk due to potential for worsening clinical status. Ms Riley is in dialysis. She is tolerating abx. No fever or chills. No other new acute issue. - Constitutional Vitals: Temp Pulse Resp BP Pulse Ox 98.2 F 84 16 109/59 94 12/03/17 17:21 12/03/17 15:28 12/03/17 15:28 12/03/17 15:28 12/03/17 15:28 General appearance: Present: A&O X 3 - Head Head exam: Present: atraumatic, normocephalic - Eye Eye exam: Present: conjuntiva pink - ENT ENT exam: Present: mucous membranes dry - Respiratory Respiratory exam: Present: decreased breath sounds, rhonchi. Absent: rales, wheezes - Cardiovascular Cardiovascular exam: Present: RRR. Absent: tachycardia - GI/Abdominal GI/Abdominal exam: Present: soft. Absent: tenderness - Extremities Exam Extremities exam: Present: warm. Absent: tenderness - Neurological Exam Neurological exam: Present: alert, oriented X3 - Skin Skin exam: Present: warm. Absent: rash Internal Medicine: Result - Labs CBC & Chem 7: 12/03/17 05:02 12/03/17 05:02 Labs: Short CBC 12/03/17 Range/Units 05:02 WBC 12.4 H (4.3-11.1) K/mcL Hgb 9.2 L (11.5-15.4) g/dL Hct 29.0 L (35.3-44.9) % Plt Count 188 (140-400) K/mcL [facility] 12/03/17 05:02 Sodium 126 L Potassium 4.4 Chloride 91 L Carbon Dioxide 25 BUN 36 H Creatinine 3.62 H Glucose 188 H Calcium 9.3 Consult Discharge Plan - Plan Referrals: Tristen Quintana MD [Primary Care Provider] - (Please call upon discharge) Prescriptions: Linezolid [Zyvox] 600 mg PO BID #10 tablet
[2017-12-03] MEDS: *HR* OxyCODONE/APAP 5/325 TABLET PO PRN (18:54)
[2017-12-04] MEDS: *HR* OxyCODONE/APAP 5/325 TABLET PO PRN ×2 (04:04→11:27)
[2017-12-04 04:26] LABS: Hematocrit 28.8 % (35.3-44.9); Mean Corpuscular HGB Conc 31.3 g/dL (31.6-35.5); Mean Corpuscular Hemoglobin 27.4 pg (28.0-33.3); Mean Corpuscular Volume 87.5 fL (83.0-100.0); Mean Platelet Volume 9.7 fL (9.4-12.4); Platelet Count 213 K/mcL (140-400); Red Blood Count 3.29 M/mcL (3.82-4.97); Red Cell Distribution Width 15.1 % (11.5-14.5)
[2017-12-04 05:02] LABS: Calcium 9.1 mg/dL (8.6-10.3)
[2017-12-04] MEDS: *HR* Heparin 5,000 UNIT/ML VIAL SQ SCH ×2 (06:13→17:26)
[2017-12-04] MEDS: amLODIPine 5 MG TABLET PO SCH (09:11)
[2017-12-04] MEDS: metOLazone 2.5 MG TABLET PO SCH (09:12)
[2017-12-04] MEDS: ARIPiprazole 10 MG TABLET PO SCH (09:12)
[2017-12-04] MEDS: Calcium Acetate 667 MG CAPSULE PO SCH ×3 (09:12→17:25)
[2017-12-04] MEDS: Gabapentin 100 MG CAPSULE PO SCH ×3 (09:12→20:42)
[2017-12-04] MEDS: Aspirin Enteric Coated 81 MG Tablet PO SCH (09:12)
[2017-12-04] MEDS: Insulin DETEMIR 100 UNIT/ML X5UNITS SQ SCH ×2 (09:13→20:42)
[2017-12-04] MEDS: Insulin LISPRO 300 UNITS/3 ML VIAL SQ SCH ×4 (09:13→20:42)
[2017-12-04] MEDS: Nicotine 21 MG PATCH.TD24 TD SCH (09:14)
--- NOTE | 2017-12-04 09:58 | Nephrology Progress Note ---
Date of Encounter: 12/04/17 Time of Encounter: 08:40 - Assessment and Plan (1) ESRD (end stage renal disease) on dialysis Current Visit: No Status: Chronic ESRD on HD M/W/F with the last HD treatment on Wednesday (yesterday). Her volume status was actually not nearly as edematous as usual, though she still has some trace to 1+ ankle edema, but biochemically and with relatively controlled edema she does not need extra HD today (Wednesday). Right hydro/emphasematous pyelo s/p stent: Appreciate Urology. Anemia, trending worse slightly, so I recommend she have a dose of Aranesp while here for a goal Hgb of 10-11. (2) Edema Current Visit: No Status: Chronic See above Qualifiers: Edema type: generalized Qualified Code(s): R60.1 - Generalized edema (3) Emphysematous pyelitis Current Visit: Yes Status: Acute See above (4) 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 Current Visit: Yes Status: Acute See above (5) Hydronephrosis, right Current Visit: Yes Status: Acute S/p stent. Appreciate Urology. (6) DMII (diabetes mellitus, type 2) Current Visit: No Status: Acute Qualifiers: Diabetes mellitus complication status: with unspecified complications Qualified Code(s): E11.8 - Type 2 diabetes mellitus with unspecified complications Subjective Principal diagnosis: ESRD on dialysis, hyponatremia, UTI Interval history: Pt was s/e earlier today. She did not affirm N/V/D and voiced that she has a good appetite. She feelings that her swelling is improving, and better than normal. She had a renal stent placed recently. Objective - Vital Signs Vital signs: Vital Signs Temp Pulse Resp BP Pulse Ox 12/04/17 08:43 97 12/04/17 07:00 97.5 F L 81 16 128/64 97 12/04/17 03:49 98 F 79 16 135/54 97 12/03/17 23:32 99.7 F H 90 18 144/61 12/03/17 19:08 97.7 F 98 18 149/77 96 12/03/17 17:21 98.2 F 12/03/17 15:28 99.2 F 84 16 109/59 94 12/03/17 12:10 97.7 F 16 123/65 12/03/17 12:00 129/61 12/03/17 11:45 98.5 F 77 18 128/70 97 12/03/17 11:30 124/58 12/03/17 11:15 137/76 12/03/17 11:00 121/87 12/03/17 10:45 137/53 12/03/17 10:30 143/67 12/03/17 10:15 120/63 12/03/17 10:00 131/61 Intake and Output 12/03/17 12/04/17 12/04/17 23:59 07:59 15:59 Intake Total 690 / 690 240 / 240 Output Total 100 / 100 Balance 690 / 690 -100 / -100 240 / 240 Intake: Oral 690 / 690 240 / 240 Output: Catheter 100 / 100 Other: Meal no salt-crackers with peanut butter Breakfast Percent of Meal Consumed 100% 100% Stool Size Moderate Stool Consistency formed Stool Color Brown # Bowel Movements 1 Weight 105.8 kg Blood Glucose* 176 240 Patient Weight 12/04/17 23:59 Weight 105.8 kg - General Appearance General appearance: Present: well-developed, well-nourished, appears started age , obese EENT: Present: ATNC, PERRL, mucous membranes moist Neck: Present: supple Respiratory: Present: clear Cardiology: Present: edema (1+ ankle edema b/l (better compared to weeks ago)), regular rate, regular rhythm, normal S1, normal S2 Dialysis Vascular Access: Arteriovenous Fistula (LUE) thrill: Yes bruit: Yes Gastrointestinal: Present: normoactive bowel sounds, no guarding, obese Integumentary: Present: warm and dry, ecchymotic Neurologic: Present: no focal deficit, no asterixis, alert and oriented x3 Musculoskeletal: Present: no deformities, no erythema, no cyanosis Psychiatric: Present: mood/affect appropriate, cooperative - Lab 12/04/17 04:15 12/04/17 04:15 Most recent lab results Calcium 9.1 mg/dL (8.6-10.3) 12/04/17 04:15 Magnesium 2.0 mg/dL (1.6-2.6) 12/01/17 06:31 Urine Sodium 62.8 mEq/L 11/26/17 08:30 Consult Discharge Plan - Plan Referrals: Tristen Quintana MD [Primary Care Provider] - (Please call upon discharge) Prescriptions: Linezolid [Zyvox] 600 mg PO BID #10 tablet
--- NOTE | 2017-12-04 12:05 | Internal Med Progress Note ---
Date of Encounter: 12/04/17 Time of Encounter: 11:00 - Assessment and plan (1) Emphysematous pyelitis Current Visit: Yes Status: Acute Assessment and plan: Pt with acute emphysematous pyelitis. She is s/p stent. Currently on IV abx. with plans for Zyvox at discharge. Hold discharge today due to somnolence. (2) VRE (vancomycin-resistant Enterococci) infection Current Visit: Yes Status: Acute Assessment and plan: Urine culture positive for VRE. On Daptomycin. Zyvox at discharge (3) Infection due to ESBL-producing Escherichia coli Current Visit: Yes Status: Acute Assessment and plan: In urine. (4) Hydronephrosis, right Current Visit: Yes Status: Acute Assessment and plan: S/P ureteral stent. (5) UTI (urinary tract infection) Current Visit: Yes Status: Acute Assessment and plan: Seems more somnolent at this time. Currently on IV abx - bladder irrigation stopped. Qualifiers: Urinary tract infection type: acute cystitis Hematuria presence: with hematuria Qualified Code(s): N30.01 - Acute cystitis with hematuria (6) Diastolic CHF Current Visit: No Status: Chronic Assessment and plan: Continue to monitor fluid status. Qualifiers: Heart failure chronicity: chronic Qualified Code(s): I50.32 - Chronic diastolic (congestive) heart failure (7) Hyperglycemia due to type 2 diabetes mellitus Current Visit: No Status: Chronic Assessment and plan: Continue to monitor sugars and adjust coverage. Qualifiers: Diabetes mellitus alf insulin use: with alf use Qualified Code( s): E11.65 - Type 2 diabetes mellitus with hyperglycemia; Z79.4 - prison ( 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 of insulin; Z79.4 - prison (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 of insulin; Z79.4 - prison (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 of insulin; Z79.4 - prison (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 of insulin (8) Atrial fibrillation Current Visit: No Status: Chronic Assessment and plan: Continue home meds. Qualifiers: Atrial fibrillation type: paroxysmal Qualified Code(s): I48.0 - Paroxysmal atrial fibrillation (9) DESHAWN (obstructive sleep apnea) Current Visit: No Status: Chronic Assessment and plan: Chronic issue (10) HTN (hypertension) Current Visit: No Status: Chronic Assessment and plan: Stable Qualifiers: Hypertension type: essential hypertension Qualified Code(s): I10 - Essential (primary) hypertension (11) ESRD (end stage renal disease) Current Visit: No Status: Chronic Assessment and plan: Per nephrology (12) CAD (coronary artery disease) Current Visit: No Status: Chronic Assessment and plan: Chronic issue Qualifiers: Coronary Disease-Associated Artery/Lesion type: [place] artery [place] vs. transplanted heart: [place] heart Associated angina: without angina Qualified Code(s): I25.10 - Atherosclerotic heart disease of [place] coronary artery without angina pectoris (13) Tobacco abuse Current Visit: No Status: Chronic Assessment and plan: Counselling. - Subjective Interval history: Ms Riley is currently admitted for UTI with VRE and ESBL E coli. She remains moderate to high risk due to potential for worsening clinical status. Ms Riley just laid down for nap. She insists she is not going to a facility despite the fact that she cannot get up on her own. She feels she has adequate help at home. She is tolerating IV abx. Denies CP or SOB at this time though she seems more somnolent today. - Constitutional Vitals: Temp Pulse Resp BP Pulse Ox 97.5 F L 78 16 128/64 100 12/04/17 11:00 12/04/17 11:00 12/04/17 11:00 12/04/17 11:25 12/04/17 11:00 General appearance: Present: A&O X 3 Exam: More somnolent on exam though she arouses and is oriented. - Head Head exam: Present: normocephalic - Eye Eye exam: Present: conjuntiva pink - ENT ENT exam: Present: mucous membranes dry - Respiratory Respiratory exam: Present: decreased breath sounds, CTAB. Absent: rales, rhonchi, wheezes - Cardiovascular Cardiovascular exam: Present: RRR. Absent: tachycardia - GI/Abdominal GI/Abdominal exam: Present: normal bowel sounds, soft. Absent: tenderness - Extremities Exam Extremities exam: Present: warm. Absent: tenderness - Neurological Exam Neurological exam: Present: alert Additional comments: Appears more somnolent today. - Skin Skin exam: Present: warm. Absent: rash Internal Medicine: Result - Labs CBC & Chem 7: 12/04/17 04:15 12/04/17 04:15 Labs: Short CBC 12/04/17 Range/Units 04:15 WBC 14.2 H (4.3-11.1) K/mcL Hgb 9.0 L (11.5-15.4) g/dL Hct 28.8 L (35.3-44.9) % Plt Count 213 (140-400) K/mcL BMP 12/04/17 04:15 Sodium 127 L Potassium 4.0 Chloride 91 L Carbon Dioxide 27 BUN 21 Creatinine 2.63 H Glucose 236 H Calcium 9.1 Consult Discharge Plan - Plan Referrals: Tristen Quintana MD [Primary Care Provider] - (Please call upon discharge) Prescriptions: Linezolid [Zyvox] 600 mg PO BID #10 tablet
[2017-12-05] MEDS: *HR* OxyCODONE/APAP 5/325 TABLET PO PRN ×3 (02:51→17:03)
[2017-12-05] MEDS: *HR* Heparin 5,000 UNIT/ML VIAL SQ SCH ×2 (05:20→16:56)
[2017-12-05] MEDS ORDERED: 0.9 % Sodium Chloride 250 ML IVC PRN (10:19)
--- NOTE | 2017-12-05 10:19 | Nephrology Progress Note ---
Date of Encounter: 12/05/17 Time of Encounter: 08:55 - Assessment and Plan (1) ESRD (end stage renal disease) on dialysis Current Visit: No Status: Chronic ESRD on HD M/W/F with the last HD treatment on Wednesday I've empirically ordered HD for Wednesday. Right hydro/emphasematous pyelo s/p stent: Appreciate Urology. Anemia, trending worse slightly. I had ordered a dose of Aranesp yesterday for a goal Hgb of 10-11. KAITLIN meds will take time to help generate more Hgb. Continue to follow a renal diet. (2) Edema Current Visit: No Status: Chronic Not as bad as her historical levels of edema. Qualifiers: Edema type: generalized Qualified Code(s): R60.1 - Generalized edema (3) Emphysematous pyelitis Current Visit: Yes Status: Acute See above (4) 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 Current Visit: Yes Status: Acute See above (5) Hydronephrosis, right Current Visit: Yes Status: Acute S/p stent. Appreciate Urology. (6) DMII (diabetes mellitus, type 2) Current Visit: No Status: Acute Qualifiers: Diabetes mellitus complication status: with unspecified complications Qualified Code(s): E11.8 - Type 2 diabetes mellitus with unspecified complications Subjective Principal diagnosis: ESRD on dialysis, hyponatremia, UTI Interval history: Pt was seen and briefly examined earlier today. She did not affirm N/V/D and voiced that she has a good appetite. She had bathed and reported only mild discomfort with the pereira. Objective - Vital Signs Vital signs: Vital Signs Temp Pulse Resp BP Pulse Ox 12/05/17 07:00 97.8 F 76 16 164/69 94 12/05/17 03:39 98.1 F 77 16 130/72 94 12/05/17 00:00 97.8 F 73 16 123/63 93 12/04/17 20:15 98.4 F 75 16 134/55 93 12/04/17 15:00 98.5 F 71 16 125/60 93 12/04/17 11:25 128/64 12/04/17 11:00 97.5 F L 78 16 146/66 100 Intake and Output 12/04/17 12/05/17 12/05/17 23:59 07:59 15:59 Intake Total 100 / 100 620 / 620 Output Total 250 / 250 Balance 100 / 100 370 / 370 Intake: IV Fluids 100 / 100 INVanz 500 MG In 0.9 % Sodium 100 / 100 Chloride 100 ML @ 100 mls/hr IVPB Q24H [facility] Rx#:[id number] Oral 0 / 0 620 / 620 Output: Catheter 250 / 250 Other: Meal cereal Percent of Meal Consumed 100% Weight 103.9 kg Blood Glucose* 236 212 Patient Weight 12/05/17 23:59 Weight 103.9 kg - General Appearance General appearance: Present: well-developed, well-nourished, appears started age , obese EENT: Present: ATNC, PERRL, mucous membranes moist Cardiology: Present: edema (trace to 1+ ankle edema b/l), regular rate (as noted on the monitor), regular rhythm (as noted on the monitor) Neurologic: Present: no focal deficit, alert and oriented x3 Psychiatric: Present: mood/affect appropriate, cooperative - Lab 12/04/17 04:15 12/04/17 04:15 Most recent lab results Calcium 9.1 mg/dL (8.6-10.3) 12/04/17 04:15 Magnesium 2.0 mg/dL (1.6-2.6) 12/01/17 06:31 Urine Sodium 62.8 mEq/L 11/26/17 08:30 Consult Discharge Plan - Plan Referrals: Tristen Quintana MD [Primary Care Provider] - (Please call upon discharge) Prescriptions: Linezolid [Zyvox] 600 mg PO BID #10 tablet
[2017-12-05] MEDS: ARIPiprazole 10 MG TABLET PO SCH (10:34)
[2017-12-05] MEDS: Gabapentin 100 MG CAPSULE PO SCH ×3 (10:34→22:17)
[2017-12-05] MEDS: metOLazone 2.5 MG TABLET PO SCH (10:34)
[2017-12-05] MEDS: Calcium Acetate 667 MG CAPSULE PO SCH ×4 (10:34→16:55)
[2017-12-05] MEDS: amLODIPine 5 MG TABLET PO SCH (10:37)
[2017-12-05] MEDS: Nicotine 21 MG PATCH.TD24 TD SCH (10:41)
[2017-12-05] MEDS: Insulin LISPRO 300 UNITS/3 ML VIAL SQ SCH ×4 (10:42→22:17)
[2017-12-05] MEDS: Aspirin Enteric Coated 81 MG Tablet PO SCH (10:42)
[2017-12-05] MEDS: Insulin DETEMIR 100 UNIT/ML X5UNITS SQ SCH ×2 (10:47→22:18)
[2017-12-05] MEDS: DAPTOMYCIN IVPB SCH (12:22)
[2017-12-05] MEDS: SODIUM CHLORIDE 0.9% IVPB SCH (12:22)
--- NOTE | 2017-12-05 12:53 | Internal Med Progress Note ---
Date of Encounter: 12/05/17 Time of Encounter: 11:50 - Assessment and plan (1) Emphysematous pyelitis Current Visit: Yes Status: Acute Assessment and plan: Pt with acute emphysematous pyelitis. She is s/p stent. Currently on IV abx. with plans for Zyvox at discharge. Anticipate d/c tomorrow after dialysis. (2) VRE (vancomycin-resistant Enterococci) infection Current Visit: Yes Status: Acute Assessment and plan: Urine culture positive for VRE. On Daptomycin. Zyvox at discharge (3) Infection due to ESBL-producing Escherichia coli Current Visit: Yes Status: Acute Assessment and plan: In urine. (4) Hydronephrosis, right Current Visit: Yes Status: Acute Assessment and plan: S/P ureteral stent. (5) UTI (urinary tract infection) Current Visit: Yes Status: Acute Assessment and plan: Seems more somnolent at this time. Currently on IV abx - bladder irrigation stopped. Qualifiers: Urinary tract infection type: acute cystitis Hematuria presence: with hematuria Qualified Code(s): N30.01 - Acute cystitis with hematuria (6) Diastolic CHF Current Visit: No Status: Chronic Assessment and plan: Continue to monitor fluid status. Qualifiers: Heart failure chronicity: chronic Qualified Code(s): I50.32 - Chronic diastolic (congestive) heart failure (7) Hyperglycemia due to type 2 diabetes mellitus Current Visit: No Status: Chronic Assessment and plan: Continue to monitor sugars and adjust coverage. Qualifiers: Diabetes mellitus termite helper insulin use: with [facility] use Qualified Code( s): E11.65 - Type 2 diabetes mellitus with hyperglycemia; Z79.4 - [facility]entiary ( 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 of insulin; Z79.4 - penitentiary (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 of insulin; Z79.4 - penitentiary (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 of insulin; Z79.4 - penitentiary (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 of insulin (8) Atrial fibrillation Current Visit: No Status: Chronic Assessment and plan: Continue home meds. Qualifiers: Atrial fibrillation type: paroxysmal Qualified Code(s): I48.0 - Paroxysmal atrial fibrillation (9) DESHAWN (obstructive sleep apnea) Current Visit: No Status: Chronic Assessment and plan: Chronic issue (10) HTN (hypertension) Current Visit: No Status: Chronic Assessment and plan: Stable Qualifiers: Hypertension type: essential hypertension Qualified Code(s): I10 - Essential (primary) hypertension (11) ESRD (end stage renal disease) Current Visit: No Status: Chronic Assessment and plan: Per nephrology (12) CAD (coronary artery disease) Current Visit: No Status: Chronic Assessment and plan: Chronic issue Qualifiers: Coronary Disease-Associated Artery/Lesion type: [place] artery [place] vs. transplanted heart: [place] heart Associated angina: without angina Qualified Code(s): I25.10 - Atherosclerotic heart disease of [place] coronary artery without angina pectoris (13) Tobacco abuse Current Visit: No Status: Chronic Assessment and plan: Counselling. - Subjective Interval history: Ms Riley is currently admitted for UTI with VRE and ESBL E coli. She remains moderate to high risk due to potential for worsening clinical status. Ms Riley is about to eat lunch. She has been getting up better today and able to stand some today. No fever and chills. No CP or SOB. No new issues at this time. - Constitutional Vitals: Temp Pulse Resp BP Pulse Ox 97.3 F L 70 16 157/76 94 12/05/17 11:00 12/05/17 11:00 12/05/17 11:00 12/05/17 11:00 12/05/17 11:10 General appearance: Present: A&O X 3 - Head Head exam: Present: normocephalic - Eye Eye exam: Present: EOMI, conjuntiva pink - ENT ENT exam: Present: mucous membranes dry - Respiratory Respiratory exam: Present: decreased breath sounds. Absent: rales, rhonchi, wheezes - Cardiovascular Cardiovascular exam: Present: RRR. Absent: tachycardia - GI/Abdominal GI/Abdominal exam: Present: soft. Absent: tenderness - Extremities Exam Extremities exam: Present: warm. Absent: tenderness Additional comments: Edema present - Neurological Exam Neurological exam: Present: alert, oriented X3 - Skin Skin exam: Present: dry, warm Internal Medicine: Result - Labs CBC & Chem 7: 12/04/17 04:15 12/04/17 04:15 Consult Discharge Plan - Plan Referrals: Tristen Quintana MD [Primary Care Provider] - (Please call upon discharge) Prescriptions: Linezolid [Zyvox] 600 mg PO BID #10 tablet
[2017-12-06 03:59] LABS: Basophils # 0.1 K/mcL (0.0-0.2); Basophils % 0.9 %; Eosinophils # 0.2 K/mcL (0.0-0.6); Eosinophils % 2.2 %; Hematocrit 29.6 % (35.3-44.9); Hemoglobin 9.3 g/dL (11.5-15.4); Immature Granulocytes % 7.3 % (0-4); Lymphocytes # 1.8 K/mcL (0.6-4.6); Lymphocytes % 17.5 %; Mean Corpuscular HGB Conc 31.4 g/dL (31.6-35.5); Mean Corpuscular Hemoglobin 26.9 pg (28.0-33.3); Mean Corpuscular Volume 85.5 fL (83.0-100.0); Mean Platelet Volume 9.8 fL (9.4-12.4); Monocytes # 0.6 K/mcL (0.0-1.3); Monocytes % 5.2 %; Platelet Count 205 K/mcL (140-400); Red Blood Count 3.46 M/mcL (3.82-4.97); Red Cell Distribution Width 15.1 % (11.5-14.5); Segmented Neutrophils % 66.9 %
[2017-12-06 04:17] LABS: Calcium 9.8 mg/dL (8.6-10.3); Potassium 4.4 mEq/L (3.5-5.1)
[2017-12-06 04:33] LABS: Hypochromasia Present (Not Present); Platelet Estimate Normal (Normal)
[2017-12-06] MEDS: *HR* Heparin 5,000 UNIT/ML VIAL SQ SCH ×2 (05:10→17:06)
[2017-12-06] MEDS: *HR* OxyCODONE/APAP 5/325 TABLET PO PRN (05:10)
[2017-12-06] MEDS ORDERED: *HR* Heparin 5,000 UNIT/ML VIAL ONE (08:34)
[2017-12-06] MEDS ORDERED: 0.9 % Sodium Chloride 2,000 ML ONE (08:34)
[2017-12-06] MEDS: Gabapentin 100 MG CAPSULE PO SCH ×3 (09:14→21:09)
[2017-12-06] MEDS: Aspirin Enteric Coated 81 MG Tablet PO SCH (09:14)
[2017-12-06] MEDS: ARIPiprazole 10 MG TABLET PO SCH (09:14)
[2017-12-06] MEDS: Insulin DETEMIR 100 UNIT/ML X5UNITS SQ SCH ×2 (09:14→21:05)
[2017-12-06] MEDS: Nicotine 21 MG PATCH.TD24 TD SCH (09:14)
[2017-12-06] MEDS: Insulin LISPRO 300 UNITS/3 ML VIAL SQ SCH ×4 (09:14→21:30)
--- NOTE | 2017-12-06 10:37 | Infectious Disease Progress No ---
Date of Encounter: 12/06/17 Time of Encounter: 09:40 - Assessment and Plan (1) Sepsis Current Visit: No Status: Resolved Resolved 0 SIRS criteria present: leukocytosis Found to have E. coli ESBL and VRE positive urine culture as well as emphysematous pyelonephritis Blood culture drawn 11/25/17 x 1 set is negative Patient has received 7 days Ertapenem and Daptomycin Prior to receiving Ertapenem she had received meropenem for several days Will discontinue all antibiotics Qualifiers: Sepsis type: sepsis due to unspecified organism Qualified Code(s): A41.9 - Sepsis, unspecified organism (2) UTI (urinary tract infection) Current Visit: No Status: Acute Causative organism VRE and E. Coli ESBL Patient had received 5 days Meropenem Patient received stent on 12/01 Fluconazole stopped previously Will stop all antibiotics as she has received full course of treatment Qualifiers: Urinary tract infection type: acute cystitis Hematuria presence: without hematuria Qualified Code(s): N30.00 - Acute cystitis without hematuria (3) Leukocytosis Current Visit: No Status: Acute Resolved Elevation in WBC seen today, but patient underwent urological procedure on 12/01 Qualifiers: Leukocytosis type: unspecified Qualified Code(s): D72.829 - Elevated white blood cell count, unspecified (4) ESRD (end stage renal disease) on dialysis Current Visit: No Status: Chronic Continued management per primary team Dose medications per HD schedule (5) Lethargy Current Visit: Yes Status: Resolved Patient had episode of lethargy on 11/28. Patient mentation improved with administration of Narcan. Episode of lethargy possibly due to medications and renal status. Concern during episode of lethargy patient had possible aspiration event. CXR did not show findings concerning for aspiration. Appears improved today. - Subjective Interval history: Patient seen in HD today. She is somewhat somnolent, but otherwise well, without complaints today. She denies having any fever/chills, rigors or sweats. She is no longer feeling discomfort in her lower abdomen. Patient has been afebrile and vitals otherwise stable. No leukocytosis seen today. Infect Dis PN-Objective Data - Labs CBC & Chem 7: 12/06/17 03:35 12/06/17 03:35 Labs: Laboratory Results - last 24 hr 12/05/17 12/05/17 12/05/17 07:53 11:28 16:33 WBC RBC Hgb Hct MCV MCH MCHC RDW Plt Count MPV Immature Gran % Seg Neutrophils % Lymphocytes % Monocytes % Eosinophils % Basophils % Neutrophils # Lymphocytes # Monocytes # Eosinophils # Basophils # Platelet Estimate Hypochromasia Sodium Potassium Chloride Carbon Dioxide BUN Creatinine Est GFR ( Amer) Est GFR (Non-Af Amer) BUN/Creatinine Ratio Glucose POC Glucose 212 H 274 H 247 H Calculated Osmolality Calcium 12/05/17 12/06/17 12/06/17 20:15 03:35 03:35 WBC 10.5 RBC 3.46 L Hgb 9.3 L Hct 29.6 L MCV 85.5 MCH 26.9 L MCHC 31.4 L RDW 15.1 H Plt Count 205 MPV 9.8 Immature Gran % 7.3 H Seg Neutrophils % 66.9 Lymphocytes % 17.5 Monocytes % 5.2 Eosinophils % 2.2 Basophils % 0.9 Neutrophils # 7.0 Lymphocytes # 1.8 Monocytes # 0.6 Eosinophils # 0.2 Basophils # 0.1 Platelet Estimate Normal Hypochromasia Present A Sodium 123 L Potassium 4.4 Chloride 88 L Carbon Dioxide 27 BUN 41 H Creatinine 3.12 H Est GFR ( Amer) 18 L Est GFR (Non-Af Amer) 15 L BUN/Creatinine Ratio 13 Glucose 210 H POC Glucose 238 H Calculated Osmolality 272 L Calcium 9.8 Cultures: Cultures 11/29/17 09:05 Urine Culture - Final Urine,Catheterized Enterococcus species 11/28/17 17:50 Urine Culture - Final Urine,Catheterized Vancomycin Resistant Enterococcus faecium Escherichia coli ESBL Exam - Constitutional Vitals: Temp Pulse Resp BP Pulse Ox 97.5 F L 76 16 130/63 100 12/06/17 07:59 12/06/17 07:59 12/06/17 07:59 12/06/17 07:59 12/06/17 09:32 - Additional findings Additional findings: General: Cooperative, pleasant, no acute distress, alert and oriented 3, answers questions appropriately HEENT: Normocephalic, atraumatic, Conjunctiva pink, sclera anicteric, oral mucosa slightly dry Respiratory: No accessory muscle usage, CTA b/l Cardiovascular: Regular rate and rhythm, S1 and S2 present, no murmurs/rubs/ gallops/clicks appreciated GI/abdominal: Nondistended, nontender, soft, normal bowel sounds, no peritoneal signs Extremities: No calf tenderness, mild pedal edema appreciated, warm, lower extremity pulses palpable and symmetrical, chronic lower extremity skin darkening Neurological: Alert and oriented 3, no facial droop, no focal deficits Skin: Dry, intact, normal color Consult Discharge Plan - Plan Referrals: Tristen Quintana MD [Primary Care Provider] - (Please call upon discharge) Prescriptions: Linezolid [Zyvox] 600 mg PO BID #10 tablet - Attending Attestation I examined this patient and my medical decision-making was reviewed with the Resident Physician. I agree with the documented findings, disposition and treatment plan as described except to the extent set forth below.
--- NOTE | 2017-12-06 10:52 | Nephrology Progress Note ---
Date of Encounter: 12/06/17 Time of Encounter: 10:49 - Assessment and Plan (1) ESRD (end stage renal disease) on dialysis Current Visit: No Status: Acute HD MWF Renal diet Renal dose medications. Additional HD/UF treatment as needed. Patient seen on dialysis today. (2) Emphysematous pyelitis Current Visit: Yes Status: Acute Per urology and primary team. S/P stent placement 12/03/2017 Continue antimicrobial therapy. (3) UTI (urinary tract infection) Current Visit: Yes Status: Acute Urine with VRE. On antimicrobial treatment. Management per primary team and urology. s/p ureteral stent. Qualifiers: Urinary tract infection type: acute cystitis Hematuria presence: with hematuria Qualified Code(s): N30.01 - Acute cystitis with hematuria (4) Diabetes Current Visit: No Status: Chronic Per primary team. Qualifiers: Diabetes mellitus type: type 2 Diabetes mellitus complication status: with kidney complications Diabetes mellitus complication detail: with chronic kidney disease Diabetes mellitus care home insulin use: with director of speech pathology use Chronic kidney disease stage: on chronic dialysis Qualified Code(s): E11.22 - Type 2 diabetes mellitus with diabetic chronic kidney disease; N18.6 - End stage renal disease; Z99.2 - Dependence on renal dialysis; Z99.2 - Dependence on renal dialysis; Z99.2 - Dependence on renal dialysis; N18.6 - End stage renal disease; N18.6 - End stage renal disease; N18.6 - End stage renal disease ; Z79.4 - mat packer (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 of insulin; Z79.4 - mat packer (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 of insulin; Z79.4 - [facility] (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 of insulin; Z79.4 - [facility] ( 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 of insulin; Z99.2 - Dependence on renal dialysis (5) HTN (hypertension) Current Visit: No Status: Chronic Blood pressure controlled. Optimize volume status with hemodialysis. Qualifiers: Hypertension type: essential hypertension Qualified Code(s): I10 - Essential (primary) hypertension Subjective Principal diagnosis: ESRD on dialysis, hyponatremia, UTI Interval history: Patient was seen on dialysis. She has no new complaint. She is sleeping, but arousable. Objective - Vital Signs Vital signs: Vital Signs Temp Pulse Resp BP Pulse Ox 12/06/17 09:32 100 12/06/17 07:59 97.5 F L 76 16 130/63 100 12/06/17 04:02 98.8 F 81 16 147/66 97 12/05/17 23:27 97.8 F 70 16 136/66 97 12/05/17 20:12 97.6 F 70 16 131/57 97 12/05/17 15:00 97.7 F 74 16 124/61 99 12/05/17 11:10 94 12/05/17 11:00 97.3 F L 70 16 157/76 98 Intake and Output 12/05/17 12/06/17 12/06/17 23:59 07:59 15:59 Intake Total 100 / 100 120 / 120 Output Total 0 / 0 Balance 100 / 100 120 / 120 Intake: IV Fluids 100 / 100 Cubicin 630 MG In 0.9 % Sodium 100 / 100 Chloride 100 ML @ 200 mls/hr IVPB Q48H [facility] Rx#:[id number] Oral 0 / 0 120 / 120 Output: Urine 0 / 0 Other: Meal Breakfast Percent of Meal Consumed 30% Weight 104.3 kg Blood Glucose* 238 267 Patient Weight 12/06/17 23:59 Weight 104.3 kg - General Appearance General appearance: Present: well-developed, well-nourished, obese EENT: Present: ATNC Neck: Present: supple Respiratory: Present: clear Cardiology: Present: edema, regular rate, regular rhythm Dialysis Vascular Access: Arteriovenous Fistula Gastrointestinal: Present: obese Integumentary: Present: warm and dry Additional Comments: Asleep, but easily awakened. Musculoskeletal: Present: no cyanosis Psychiatric: Present: mood/affect appropriate - Lab 12/06/17 03:35 12/06/17 03:35 Most recent lab results Calcium 9.8 mg/dL (8.6-10.3) 12/06/17 03:35 Magnesium 2.0 mg/dL (1.6-2.6) 12/01/17 06:31 Urine Sodium 62.8 mEq/L 11/26/17 08:30 Consult Discharge Plan - Plan Referrals: Tristen Quintana MD [Primary Care Provider] - (Please call upon discharge) Prescriptions: Linezolid [Zyvox] 600 mg PO BID #10 tablet
[2017-12-06] MEDS: Calcium Acetate 667 MG CAPSULE PO SCH ×3 (12:18→17:06)
[2017-12-06] MEDS: amLODIPine 5 MG TABLET PO SCH (12:25)
[2017-12-06] MEDS: metOLazone 2.5 MG TABLET PO SCH (12:26)
--- NOTE | 2017-12-06 19:23 | Internal Med Progress Note ---
Date of Encounter: 12/06/17 Time of Encounter: 08:30 - Assessment and plan (1) Acute metabolic encephalopathy Current Visit: Yes Status: Acute Assessment and plan: More confused today. Sodium lower Meds reviewed Dialysis today. Will keep here today and reassess tomorrow. Hopeful d/c then (2) Emphysematous pyelitis Current Visit: Yes Status: Resolved Assessment and plan: Pt with acute emphysematous pyelitis. She is s/p stent. Abx stopped today. No need for PO at discharge. Pereira removed today. (3) VRE (vancomycin-resistant Enterococci) infection Current Visit: Yes Status: Resolved Assessment and plan: Urine culture positive for VRE. Completed abx. (4) Infection due to ESBL-producing Escherichia coli Current Visit: Yes Status: Resolved Assessment and plan: In urine. Completed abx. (5) Hydronephrosis, right Current Visit: Yes Status: Chronic Assessment and plan: S/P ureteral stent. (6) UTI (urinary tract infection) Current Visit: Yes Status: Resolved Assessment and plan: Abx stopped and pereira removed. Qualifiers: Urinary tract infection type: acute cystitis Hematuria presence: with hematuria Qualified Code(s): N30.01 - Acute cystitis with hematuria (7) Diastolic CHF Current Visit: No Status: Chronic Assessment and plan: Continue to monitor fluid status. Qualifiers: Heart failure chronicity: chronic Qualified Code(s): I50.32 - Chronic diastolic (congestive) heart failure (8) Hyperglycemia due to type 2 diabetes mellitus Current Visit: No Status: Chronic Assessment and plan: Continue to monitor sugars and adjust coverage. Qualifiers: Diabetes mellitus usp insulin use: with usp use Qualified Code( s): E11.65 - Type 2 diabetes mellitus with hyperglycemia; Z79.4 - terminal system operator ( 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 of insulin; Z79.4 - penitentiary (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 of insulin; Z79.4 - terminal system operator (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 of insulin; Z79.4 - penitentiary (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 of insulin (9) Atrial fibrillation Current Visit: No Status: Chronic Assessment and plan: Continue home meds. Qualifiers: Atrial fibrillation type: paroxysmal Qualified Code(s): I48.0 - Paroxysmal atrial fibrillation (10) DESHAWN (obstructive sleep apnea) Current Visit: No Status: Chronic Assessment and plan: Chronic issue (11) HTN (hypertension) Current Visit: No Status: Chronic Assessment and plan: Stable Qualifiers: Hypertension type: essential hypertension Qualified Code(s): I10 - Essential (primary) hypertension (12) ESRD (end stage renal disease) Current Visit: No Status: Chronic Assessment and plan: Per nephrology (13) CAD (coronary artery disease) Current Visit: No Status: Chronic Assessment and plan: Chronic issue Qualifiers: Coronary Disease-Associated Artery/Lesion type: [place] artery [place] vs. transplanted heart: [place] heart Associated angina: without angina Qualified Code(s): I25.10 - Atherosclerotic heart disease of [place] coronary artery without angina pectoris (14) Tobacco abuse Current Visit: No Status: Chronic Assessment and plan: Counselling. - Subjective Interval history: Ms Riley is currently admitted for UTI with VRE and ESBL E coli. She remains moderate to high risk due to potential for worsening clinical status. Ms Riley had dialysis today. She was much more confused last night and remains confused today. Eating at this time. Abx stopped today. No fever or chills. Pereira to be removed. - Constitutional Vitals: Temp Pulse Resp BP Pulse Ox 98.0 F 75 16 136/65 98 12/06/17 15:43 12/06/17 15:43 12/06/17 15:43 12/06/17 15:43 12/06/17 15:43 General appearance: Present: A&O X 2 - Head Head exam: Present: normocephalic - Eye Eye exam: Present: EOMI, conjuntiva pink - ENT ENT exam: Present: mucous membranes dry - Respiratory Respiratory exam: Present: CTAB. Absent: rales, rhonchi, wheezes - Cardiovascular Cardiovascular exam: Present: RRR. Absent: tachycardia - GI/Abdominal GI/Abdominal exam: Present: soft. Absent: tenderness - Neurological Exam Neurological exam: Present: alert, altered Internal Medicine: Result - Labs CBC & Chem 7: 12/06/17 03:35 12/06/17 03:35 Labs: Short CBC 12/06/17 Range/Units 03:35 WBC 10.5 (4.3-11.1) K/mcL Hgb 9.3 L (11.5-15.4) g/dL Hct 29.6 L (35.3-44.9) % Plt Count 205 (140-400) K/mcL Neutrophils # 7.0 (1.6-8.9) K/mcL BMP 12/06/17 03:35 Sodium 123 L Potassium 4.4 Chloride 88 L Carbon Dioxide 27 BUN 41 H Creatinine 3.12 H Glucose 210 H Calcium 9.8 Consult Discharge Plan - Plan Referrals: Tristen Quintana MD [Primary Care Provider] - (Please call upon discharge) Prescriptions: Linezolid [Zyvox] 600 mg PO BID #10 tablet
[2017-12-07 05:55] LABS: Thyroid Stimulating Hormone 2.402 mcIU/mL (0.340-5.600)
[2017-12-07 06:02] LABS: Calcium 9.5 mg/dL (8.6-10.3); Potassium 4.6 mEq/L (3.5-5.1)
[2017-12-07] MEDS: *HR* Heparin 5,000 UNIT/ML VIAL SQ SCH (06:09)
--- NOTE | 2017-12-07 07:31 | Infectious Disease Progress No ---
Date of Encounter: 12/07/17 Time of Encounter: 07:10 - Assessment and Plan (1) Sepsis Status: Resolved Resolved 0 SIRS criteria present Found to have E. coli ESBL and VRE positive urine culture as well as emphysematous pyelonephritis Blood culture drawn 11/25/17 x 1 set is negative Patient has received 7 days Ertapenem and Daptomycin Prior to receiving Ertapenem she had received meropenem for several days All antibiotics stopped yesterday Qualifiers: Sepsis type: sepsis due to unspecified organism Qualified Code(s): A41.9 - Sepsis, unspecified organism (2) UTI (urinary tract infection) Status: Acute Causative organism VRE and E. Coli ESBL Patient had received 5 days Meropenem Patient received stent on 12/01 Fluconazole stopped previously Will stop all antibiotics as she has received full course of treatment Qualifiers: Urinary tract infection type: acute cystitis Hematuria presence: without hematuria Qualified Code(s): N30.00 - Acute cystitis without hematuria (3) Leukocytosis Status: Acute Resolved WBC has returned to normal per yesterday's labs Patient underwent urological procedure on 12/01 Qualifiers: Leukocytosis type: unspecified Qualified Code(s): D72.829 - Elevated white blood cell count, unspecified (4) ESRD (end stage renal disease) on dialysis Status: Chronic Continued management per primary team Dose medications per HD schedule (5) Lethargy Status: Resolved Patient had episode of lethargy on 11/28 and has has return of fatigue and exhaustion in the last couple days. Patient mentation improved with administration of Narcan. Episode of lethargy possibly due to medications and renal status. CXR did not show findings concerning for aspiration. She reports continued exhaustion today - Subjective Interval history: Patient lying comfortably in bed. Awakens easily to verbal stimuli. She reports that she has continued to have some fatigue and feels exhausted in general. She also reports having a subjective fever once last night with no diaphoresis or chills reported. She also reports having some mild nausea off-and-on. She denies shortness of breath, chest pain, abdominal pain, diarrhea/constipation, or cough. Patient has been afebrile, vitals have been stable, and WBC has resolved ( according to yesterday's labs) Infect Dis PN-Objective Data - Labs CBC & Chem 7: 12/06/17 03:35 12/07/17 04:52 Labs: Laboratory Results - last 24 hr 12/06/17 12/06/17 12/06/17 07:53 11:45 15:42 Sodium Potassium Chloride Carbon Dioxide BUN Creatinine Est GFR ( Amer) Est GFR (Non-Af Amer) BUN/Creatinine Ratio Glucose POC Glucose 267 H 161 H 256 H Calculated Osmolality Calcium TSH Random Cortisol 12/06/17 12/07/17 12/07/17 21:51 04:52 04:52 Sodium 131 L Potassium 4.6 Chloride 94 L Carbon Dioxide 30 H BUN 21 Creatinine 2.54 H Est GFR ( Amer) 23 L Est GFR (Non-Af Amer) 19 L BUN/Creatinine Ratio 8 Glucose 263 H POC Glucose 212 H Calculated Osmolality 284 Calcium 9.5 TSH 2.402 Random Cortisol 9.5 Cultures: Cultures 11/29/17 09:05 Urine Culture - Final Urine,Catheterized Enterococcus species 11/28/17 17:50 Urine Culture - Final Urine,Catheterized Vancomycin Resistant Enterococcus faecium Escherichia coli ESBL Exam - Constitutional Vitals: Temp Pulse Resp BP Pulse Ox 97.8 F 75 18 121/72 99 12/07/17 04:47 12/07/17 04:47 12/07/17 04:47 12/07/17 04:47 12/07/17 04:47 - Additional findings Additional findings: General: Cooperative, pleasant, no acute distress, alert and oriented 3, answers questions appropriately HEENT: Normocephalic, atraumatic, Conjunctiva pink, sclera anicteric, oral mucosa slightly dry Respiratory: No accessory muscle usage, CTA b/l Cardiovascular: Regular rate and rhythm, S1 and S2 present, no murmurs/rubs/ gallops/clicks appreciated GI/abdominal: Nondistended, nontender, soft, normal bowel sounds, no peritoneal signs Extremities: No calf tenderness, mild pedal edema appreciated, warm, lower extremity pulses palpable and symmetrical, chronic lower extremity skin darkening Neurological: Alert and oriented 3, no facial droop, no focal deficits Skin: Dry, intact, normal color Consult Discharge Plan - Plan Additional Instructions: Follow-up with urology within the next 2 weeks. Complete antibiotics, did not take amitriptyline while being on Zyvox. Follow-up with primary care physician within the next 7 days. Continue dialysis. Use insulin sliding scale at home and Levemir 5 units twice a day. Referrals: Tristen Quintana MD [Primary Care Provider] - 12/14/17 1:45 pm (Please follow up as schedule...) Naren Garcia MD [Partnered Physician] - 12/21/17 11:00 am (please follow up a schedule...) Prescriptions: Insulin DETEMIR [Levemir] 5 unit SQ BID 30 Days #1 [id number] Linezolid [Zyvox] 600 mg PO BID #10 tablet Oxycodone HCl 5 mg PO Q6H 7 Days #28 tablet - Attending Attestation I examined this patient and my medical decision-making was reviewed with the Resident Physician. I agree with the documented findings, disposition and treatment plan as described except to the extent set forth below.
[2017-12-07 08:07] VITALS: BP 146/81
[2017-12-07] MEDS: *HR* OxyCODONE/APAP 5/325 TABLET PO PRN (08:49)
[2017-12-07] MEDS: ARIPiprazole 10 MG TABLET PO SCH (08:49)
[2017-12-07] MEDS: metOLazone 2.5 MG TABLET PO SCH (08:49)
[2017-12-07] MEDS: Gabapentin 100 MG CAPSULE PO SCH (08:49)
[2017-12-07] MEDS: Calcium Acetate 667 MG CAPSULE PO SCH (08:49)
[2017-12-07] MEDS: amLODIPine 5 MG TABLET PO SCH (08:49)
[2017-12-07] MEDS: Aspirin Enteric Coated 81 MG Tablet PO SCH (08:50)
[2017-12-07] MEDS: Insulin DETEMIR 100 UNIT/ML X5UNITS SQ SCH (08:51)
[2017-12-07] MEDS: Insulin LISPRO 300 UNITS/3 ML VIAL SQ SCH (08:51)
[2017-12-07] MEDS: Nicotine 21 MG PATCH.TD24 TD SCH (08:51)
--- NOTE | 2017-12-07 09:12 | Discharge Summary ---
Orders not resulted at time of discharge: Pending orders 12/07/17 04:00 Complete Blood Count w/o Diff [HEME] AM 0400 Osmolality,Urine [UCHEM] AM 0400 12/08/17 04:00 BMP [Basic Metabolic Panel] AM 0400 Complete Blood Count w/o Diff [HEME] AM 0400 12/09/17 04:00 BMP [Basic Metabolic Panel] AM 0400 Complete Blood Count w/o Diff [HEME] AM 0400 12/10/17 04:00 BMP [Basic Metabolic Panel] AM 0400 Complete Blood Count w/o Diff [HEME] AM 0400 12/11/17 04:00 BMP [Basic Metabolic Panel] AM 0400 Complete Blood Count w/o Diff [HEME] AM 0400 12/12/17 04:00 BMP [Basic Metabolic Panel] AM 0400 Complete Blood Count w/o Diff [HEME] AM 0400 Date of Encounter: 12/07/17 Time of Encounter: 09:10 - Discharge Diagnosis (1) Acute metabolic encephalopathy Priority: Primary Status: Acute Comments: Acute metabolic encephalopathy secondary to emphysematous right pyelitis/ Urinary tract infection Positive for Escherichia coli ESBL and VRE Status post right ureteral stent (2) VRE (vancomycin-resistant Enterococci) Priority: Primary Status: Acute (3) Infection due to ESBL-producing Escherichia coli Priority: Primary Status: Resolved (4) UTI (urinary tract infection) Priority: Primary Status: Resolved Qualifiers: Urinary tract infection type: acute cystitis Hematuria presence: with hematuria Qualified Code(s): N30.01 - Acute cystitis with hematuria (5) 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 Priority: Primary Status: Acute (6) Hyperglycemia Priority: Secondary Status: Acute (7) CAD (coronary artery disease) Priority: Secondary Status: Chronic Qualifiers: Coronary Disease-Associated Artery/Lesion type: [place] artery [place] vs. transplanted heart: [place] heart Associated angina: without angina Qualified Code(s): I25.10 - Atherosclerotic heart disease of [place] coronary artery without angina pectoris (8) Diastolic CHF Priority: Secondary Status: Chronic Qualifiers: Qualified Code(s): I50.32 - Chronic diastolic (congestive) heart failure (9) ESRD (end stage renal disease) on dialysis Priority: Secondary Status: Chronic (10) HTN (hypertension) Priority: Secondary Status: Chronic Qualifiers: Hypertension type: essential hypertension Qualified Code(s): I10 - Essential (primary) hypertension (11) Morbid obesity with BMI of 45.0-49.9, adult Priority: Secondary Status: Chronic (12) Hyponatremia Priority: Secondary Status: Resolved (13) Hypokalemia Priority: Secondary Status: Resolved (14) Emphysematous pyelitis Priority: Primary Status: Resolved Hospital course: Ms. Riley is a 62 year old female with a past medical history of tobacco abuse , end-stage renal disease on hemodialysis still making urine, diabetes type 2 insulin-dependent, COPD not oxygen dependent, CAD status post CABG, GI bleed, multiple episodes of urinary tract infections with ESBL Escherichia coli and multidrug resistant organisms including ESBL Klebsiella. The patient was recently discharged on 11/19/2017 which she was evaluated for chest pain. She came to the emergency room complaining of an very elevated glucose, and also hypoglycemia, just last week prior to admission she had hypoglycemia in the low 30s, she uses only Humalog sliding scale at home and lately, her sugars have been in the 400s and her machine has not been able to read her glucose due to very elevated values. Was given 1 dose of meropenem at the emergency room. We will continue meropenem unfortunately did not improve DIagnosed with Acute metabolic encephalopathy secondary to Possible Urinary tract infection and morphine 2 prior cultures have been growing mixed nick, unable to identify the pathogen. During her hospitalization, the patient was given Narcan after receiving approximately her home dose of morphine, long-acting morphine was discontinued. History of ESBL organisms including Escherichia coli and Klebsiella, was given ampicillin, I D was consulted. The patient was switched to ertapenem, received irrigation of the bladder with gentamicin and amphoteriin B as she grew Masha in the past. 2 other cultures were obtained through catheterization showing Escherichia coli ESBL and VRE. CT of the abdomen showed:1. Slight interval worsening of moderate right hydroureteronephrosis. Urothelial thickening and periureteral stranding appears increased when compared to 10/24/2017 but otherwise similar in appearance from 10/28/2017. There is mild stranding along the superior aspect of the right kidney. There are also a few new foci of gas within the upper pole of the right kidney and may be within the complex cystic lesion versus calyx. Findings should be correlated with recent instrumentation. If no recent surgical procedure has been performed, findings could reflect emphysematous pyelitis in the appropriate clinical setting. Urothelial thickening and stranding favor an infectious or inflammatory process as well. 2. Small amount of gas within the bladder, also likely related to recent intervention. The patient was switched to daptomycin completed 7 days. Also urology was consulted and a stent was placed on the right ureter due to emphysematous pyelitis. The patient refused to go to an ECF and wishes to go home, risks were explained. Zyvox was prescirbed to complete 5 more days - Time Spent with Patient Total time spent providing and/or coordinating discharge services: Greater than 30 minutes (40 min) - Discharge Medications Prescriptions: Insulin DETEMIR [Levemir] 5 unit SQ BID 30 Days #1 [id number] Linezolid [Zyvox] 600 mg PO BID #10 tablet Oxycodone HCl 5 mg PO Q6H 7 Days #28 tablet Home Medications: Clopidogrel [Plavix] 75 mg PO DAILY 05/11/15 [History] Omeprazole [PriLOSEC] 20 mg PO BID 05/11/15 [History] Colestipol HCl [Colestid] 1 gm PO BID 06/12/15 [History] Carvedilol 12.5 mg PO BID 10/28/15 [History] Calcium Acetate [Phos-LO] 1,334 mg PO TIDWM 09/06/16 [History] Folic Acid/Vit Bcomp,C [Renal Vitamin Tablet] 0.8 mg PO DAILY 04/15/17 [History] ARIPiprazole [Abilify] 10 mg PO DAILY 09/13/17 [History] Aspirin Enteric Coated [Aspirin EC] 81 mg PO DAILY 09/13/17 [History] Budesonide/Formoterol 160/4.5 [Symbicort 160/4.5] 2 puff IH BIDR 09/13/17 [ History] Cholecalciferol (Vitamin D3) [Vitamin D3] 50,000 unit PO TH 09/13/17 [History] Lidocaine/Prilocaine CREAM [Emla] 1 appl TP AD PRN 09/13/17 [History] OxyCODONE/APAP 10/325 [Percocet 10/325 MG] 1 tab PO Q6H PRN 09/13/17 [History] Oxygen 2 l NS AD 09/13/17 [History] Sennosides [Senna] 8.6 mg PO BID 09/13/17 [History] Sevelamer [Renvela] 800 mg PO TIDWM 09/13/17 [History] Albuterol Neb [AccuNeb] 0.63 mg IH Q6H PRN 10/18/17 [History] Gabapentin [Neurontin] 100 mg PO TID #60 capsule 10/21/17 [Rx] Rosuvastatin [Crestor] 10 mg PO HS #15 tablet 10/21/17 [Rx] Docusate Sodium [Colace] 100 mg PO BID #60 capsule 10/26/17 [Rx] metOLazone [Zaroxolyn] 1 tab PO DAILY 10/26/17 [History] Collagenase Oint [Santyl] 1 appl TP AD 11/11/17 [History] Oxybutynin [Ditropan] 5 mg PO TID 11/11/17 [History] Isosorbide MONOnitrate (24 HR) [Imdur] 30 mg PO DAILY #30 tab.er.24h 11/19/17 [ Rx] amLODIPine [Norvasc] 10 mg PO DAILY #30 tablet 11/19/17 [Rx] Insulin LISPRO [Humalog Kwikpen U-100] 35 unit SQ ACHS 11/25/17 [History] Linezolid [Zyvox] 600 mg PO BID #10 tablet 12/03/17 [Rx] Insulin DETEMIR [Levemir] 5 unit SQ BID 30 Days #1 [id number] 12/07/17 [Rx] Oxycodone HCl 5 mg PO Q6H 7 Days #28 tablet 12/07/17 [Rx] Allergies/Adverse Reactions: 3 Allergy/AdvReac Type Severity Reaction Status Date / Time No Known Allergies Allergy Verified 11/24/17 09:01 Date of admission: 11/28/17 13:36 Primary care physician: Tristen Quintana MD Consults: 11/29/17 08:00 Consult to Dialysis [CONS] ONCE 11/29/17 09:01 Consult to Infectious Diseases [CONS] Routine Consulting Provider: Infectious Disease [place] Reason for Consult: Hx of ESBL, not improving on Merrem Call Completed: No 11/30/17 16:29 Consult to Urology [CONS] Routine Consulting Provider: Urology [place] Reason for Consult: Findings of hydroureteronephrosis on CT with signs of pyelo Call Completed: Yes 12/01/17 08:45 Consult to Dialysis [CONS] ONCE 12/02/17 08:45 Consult to Dialysis [CONS] ONCE 12/03/17 08:15 Consult to Dialysis [CONS] ONCE 12/03/17 10:21 Consult to Occupational Therapy [CONS] Routine Comment: Evaluate, develop and implement POC Reason for Consult: eval for ecf Consult to Physical Therapy [CONS] Routine Comment: Evaluate, develop and implement POC Reason for Consult: eval for ecf 12/06/17 07:00 Consult to Dialysis [CONS] ONCE - Constitutional Vitals: Temp Pulse Resp BP Pulse Ox 97.9 F 79 15 146/81 100 12/07/17 08:02 12/07/17 08:02 12/07/17 08:02 12/07/17 08:02 12/07/17 08:02 General appearance: Present: A&O X 3 Exam: - Head Head exam: Present: atraumatic, normocephalic - Eye Eye exam: Present: PERRL, conjuntiva pink, sclera anicteric Pupils: Present: PERRL - Neck Neck exam general surgery: Present: supple, trachea midline. Absent: lymphadenopathy - Respiratory Respiratory exam: Present: CTAB, rales (Bibasilar crackles). Absent: accessory muscle use, rhonchi, wheezes - Cardiovascular Cardiovascular exam: Present: RRR, +S1, +S2. Absent: diastolic murmur, gallop, rubs, systolic murmur - GI/Abdominal GI/Abdominal exam: Present: distended, normal bowel sounds, soft, no peritoneal signs, mild lower abdominal tenderness. No rebound - Extremities Exam Extremities exam: Present: pedal edema (+1 pitting edema in both lower extremities), warm, radial pulses palpable and symmetrical. Absent: calf tenderness, cyanotic Additional comments: AV fistula in left upper extremity with good thrill - Neurological Exam Neurological exam: Present: CN II-XII intact, oriented X3, no focal deficits. Absent: pronater drift, facial droop, speech deficit - Skin Skin exam: Present: dry, intact Stage II sacral ulcer - Patient Status Disposition: Home Health Service Condition: Fair Overall status at discharge: patient is progressing back to baseline - Discharge Instructions Follow Up With: Tristen Quintana MD [Primary Care Provider] - (Please call upon discharge) Additional Instructions: Follow-up with urology within the next 2 weeks. Complete antibiotics, did not take amitriptyline while being on Zyvox. Follow-up with primary care physician within the next 7 days. Continue dialysis. Use insulin sliding scale at home and Levemir 5 units twice a day. - Diet and Activity Activity: increase activity as tolerated Diet: diabetic diet, low fat, low cholesterol
--- NOTE | 2017-12-07 09:39 | Physician Discharge Referral ---
Home Health/Hosp Referral Info Transfer to: Home Health Provider in Charge Post Discharge: PCP - Diagnosis (1) Acute metabolic encephalopathy Status: Acute (2) VRE (vancomycin-resistant Enterococci) Status: Acute (3) Infection due to ESBL-producing Escherichia coli Status: Resolved (4) UTI (urinary tract infection) Status: Resolved (5) 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 Status: Acute (6) Hyperglycemia Status: Acute (7) CAD (coronary artery disease) Status: Chronic (8) Diastolic CHF Status: Chronic (9) ESRD (end stage renal disease) on dialysis Status: Chronic (10) HTN (hypertension) Status: Chronic (11) Morbid obesity with BMI of 45.0-49.9, adult Status: Chronic (12) Hyponatremia Status: Resolved (13) Hypokalemia Status: Resolved (14) Emphysematous pyelitis Status: Resolved - Respiratory Orders Smoking Cessation: Smoking cessation has been advised. For more information, call the [employer] Quit Line at [phone]-NOW. - Diet/Nutrition Diet/Nutrition Orders: Renal - Services Needed Following services are medically necessary services: Home Health Aide, Physical Therapy, Occupational Therapy Home Care Orders: Follow-up with urology within the next 2 weeks. Complete antibiotics, did not take amitriptyline while being on Zyvox. Follow-up with primary care physician within the next 7 days. Continue dialysis. Use insulin sliding scale at home and Levemir 5 units twice a day. - Transfer Medications Prescriptions: Insulin DETEMIR [Levemir] 5 unit SQ BID 30 Days #1 [id number] Linezolid [Zyvox] 600 mg PO BID #10 tablet Oxycodone HCl 5 mg PO Q6H 7 Days #28 tablet Home Medications: Clopidogrel [Plavix] 75 mg PO DAILY 05/11/15 [History] Omeprazole [PriLOSEC] 20 mg PO BID 05/11/15 [History] Colestipol HCl [Colestid] 1 gm PO BID 06/12/15 [History] Carvedilol 12.5 mg PO BID 10/28/15 [History] Calcium Acetate [Phos-LO] 1,334 mg PO TIDWM 09/06/16 [History] Folic Acid/Vit Bcomp,C [Renal Vitamin Tablet] 0.8 mg PO DAILY 04/15/17 [History] ARIPiprazole [Abilify] 10 mg PO DAILY 09/13/17 [History] Aspirin Enteric Coated [Aspirin EC] 81 mg PO DAILY 09/13/17 [History] Budesonide/Formoterol 160/4.5 [Symbicort 160/4.5] 2 puff IH BIDR 09/13/17 [ History] Cholecalciferol (Vitamin D3) [Vitamin D3] 50,000 unit PO TH 09/13/17 [History] Lidocaine/Prilocaine CREAM [Emla] 1 appl TP AD PRN 09/13/17 [History] OxyCODONE/APAP 10/325 [Percocet 10/325 MG] 1 tab PO Q6H PRN 09/13/17 [History] Oxygen 2 l NS AD 09/13/17 [History] Sennosides [Senna] 8.6 mg PO BID 09/13/17 [History] Sevelamer [Renvela] 800 mg PO TIDWM 09/13/17 [History] Albuterol Neb [AccuNeb] 0.63 mg IH Q6H PRN 10/18/17 [History] Gabapentin [Neurontin] 100 mg PO TID #60 capsule 10/21/17 [Rx] Rosuvastatin [Crestor] 10 mg PO HS #15 tablet 10/21/17 [Rx] Docusate Sodium [Colace] 100 mg PO BID #60 capsule 10/26/17 [Rx] metOLazone [Zaroxolyn] 1 tab PO DAILY 10/26/17 [History] Collagenase Oint [Santyl] 1 appl TP AD 11/11/17 [History] Oxybutynin [Ditropan] 5 mg PO TID 11/11/17 [History] Isosorbide MONOnitrate (24 HR) [Imdur] 30 mg PO DAILY #30 tab.er.24h 11/19/17 [ Rx] amLODIPine [Norvasc] 10 mg PO DAILY #30 tablet 11/19/17 [Rx] Insulin LISPRO [Humalog Kwikpen U-100] 35 unit SQ ACHS 11/25/17 [History] Linezolid [Zyvox] 600 mg PO BID #10 tablet 12/03/17 [Rx] Insulin DETEMIR [Levemir] 5 unit SQ BID 30 Days #1 [id number] 12/07/17 [Rx] Oxycodone HCl 5 mg PO Q6H 7 Days #28 tablet 12/07/17 [Rx] Allergies/Adverse Reactions: 3 Allergy/AdvReac Type Severity Reaction Status Date / Time No Known Allergies Allergy Verified 11/24/17 09:01 Certification: Further, I certify that my clinical findings support that this patient is homebound (i.e. absences from home require considerable and taxing effort and are for medical reasons or bahai services or infrequently or short duration when for other reasons) because: Homebound Reason: Patient requires assistance of a person or device to safely leave home Attestation: My signature below is to certify that this patient is under my care and that I, or nurse practitioner, or a physician's dermatology physician assistant working with me, has a face-to -face encounter with this patient.
--- NOTE | 2017-12-07 11:14 | Nephrology Progress Note ---
Date of Encounter: 12/07/17 Time of Encounter: 11:12 - Assessment and Plan (1) ESRD (end stage renal disease) on dialysis Current Visit: No Status: Acute Plan for HD tomorrow Continue renal diet Continue strict I/Os Avoid nephrotoxins if possible (2) UTI (urinary tract infection) Current Visit: Yes Status: Resolved per primary/infectious disease teams Qualifiers: Urinary tract infection type: acute cystitis Hematuria presence: with hematuria Qualified Code(s): N30.01 - Acute cystitis with hematuria (3) Anemia Current Visit: No Status: Chronic No CBC today; yesterday hgb 9.3 Goal hgb 10-11 Transfuse per parameters Qualifiers: Anemia type: due to chronic kidney disease Chronic kidney disease stage: on chronic dialysis Qualified Code(s): N18.6 - End stage renal disease; D63.1 - Anemia in chronic kidney disease; Z99.2 - Dependence on renal dialysis Subjective Principal diagnosis: ESRD on dialysis, hyponatremia, UTI Interval history: Patient seen and examined. Sleeping sitting up in chair. Objective - Vital Signs Vital signs: Vital Signs Temp Pulse Resp BP Pulse Ox 12/07/17 08:02 97.9 F 79 15 146/81 100 12/07/17 04:47 97.8 F 75 18 121/72 99 12/06/17 23:46 97.6 F 75 18 141/49 100 12/06/17 21:44 98.1 F 79 18 123/54 100 12/06/17 15:43 98.0 F 75 16 136/65 98 12/06/17 12:19 97.9 F 91 16 119/74 99 12/06/17 11:55 98.1 F 15 153/65 12/06/17 11:40 139/62 12/06/17 11:25 149/62 Intake and Output 12/06/17 12/07/17 12/07/17 23:59 07:59 15:59 Intake Total 0 / 0 0 / 0 Output Total 0 / 0 0 / 0 Balance 0 / 0 0 / 0 Intake: Oral 0 / 0 0 / 0 Output: Urine 0 / 0 0 / 0 Other: Weight 102.2 kg Blood Glucose* 212 253 Patient Weight 12/07/17 23:59 Weight 102.2 kg - General Appearance General appearance: Present: obese EENT: Present: ATNC Neck: Present: supple Cardiology: Present: edema, regular rhythm, rapid rhythm Dialysis Vascular Access: Arteriovenous Fistula Gastrointestinal: Present: no tenderness, no guarding, obese - Lab 12/06/17 03:35 12/07/17 04:52 Most recent lab results Calcium 9.5 mg/dL (8.6-10.3) 12/07/17 04:52 Magnesium 2.0 mg/dL (1.6-2.6) 12/01/17 06:31 Urine Sodium 62.8 mEq/L 11/26/17 08:30 Consult Discharge Plan - Plan Additional Instructions: Follow-up with urology within the next 2 weeks. Complete antibiotics, did not take amitriptyline while being on Zyvox. Follow-up with primary care physician within the next 7 days. Continue dialysis. Use insulin sliding scale at home and Levemir 5 units twice a day. Referrals: Tristen Quintana MD [Primary Care Provider] - 12/14/17 1:45 pm (Please follow up as schedule...) Naren Garcia MD [Partnered Physician] - 12/21/17 11:00 am (please follow up a schedule...) Prescriptions: Insulin DETEMIR [Levemir] 5 unit SQ BID 30 Days #1 [id number] Linezolid [Zyvox] 600 mg PO BID #10 tablet Oxycodone HCl 5 mg PO Q6H 7 Days #28 tablet
== END 2017-12-07 12:17 | disposition home health service (06) | DRG 871 ==
LOC: EMEROO 11:45 → 2ANU 11:45 → SUATTDRO 15:33 → 2ANU 16:24 → SUATTDRO 11-28 13:36
PROVIDERS: ADMIT Registered Nurse; ATTEND Internal Medicine

== ENCOUNTER 2017-12-10 13:08 | Observation (INO) ==
--- NOTE | 2017-12-10 13:17 | Emergency Department Note ---
Disposition Clinical Impression: Hyperglycemia Chest pain Qualifiers: Chest pain type: unspecified Qualified Code(s): R07.9 - Chest pain, unspecified Disposition: Admitted As Inpatient Condition: Fair Forms: ED Satisfaction Letter Time of Disposition: 14:44 Chest Pain HPI - General Chief Complaint: ED Chest Pain Stated Complaint: HERNÁN, CP, elevated glucose Time Seen by Provider: 12/10/17 13:11 Source: patient, EMS Mode of arrival: EMS Limitations: no limitations Vital Signs Reviewed: Yes Nursing Notes Reviewed: Yes - History of Present Illness HPI Narrative: 62-year-old dialysis patient who was at dialysis today and developed chest pain. She also notes that her sugars have been running high. Pt complaint: chest pain Onset (ago): Just [employer] Duration: constant Onset: during rest, other (Dialysis) Pain Location: substernal, left chest Severity: moderate Quality: tightness, aching, heaviness Pain Radiation: none Worsens with: nothing Context: other (Dialysis) Treatments prior to arrival chest pain: none - Related Data Home Medications Medication Instructions Recorded Confirmed Clopidogrel [Plavix] 75 mg PO DAILY 05/11/15 11/25/17 Omeprazole [PriLOSEC] 20 mg PO BID 05/11/15 11/25/17 Colestipol HCl [Colestid] 1 gm PO BID 06/12/15 11/25/17 Carvedilol 12.5 mg PO BID 10/28/15 11/25/17 Calcium Acetate [Phos-LO] 1,334 mg PO TIDWM 09/06/16 11/25/17 Folic Acid/Vit Bcomp,C [Renal 0.8 mg PO DAILY 04/15/17 11/25/17 Vitamin Tablet] ARIPiprazole [Abilify] 10 mg PO DAILY 09/13/17 11/25/17 Aspirin Enteric Coated [Aspirin EC] 81 mg PO DAILY 09/13/17 11/25/17 Budesonide/Formoterol 160/4.5 2 puff IH BIDR 09/13/17 11/25/17 [Symbicort 160/4.5] Cholecalciferol (Vitamin D3) 50,000 unit PO TH 09/13/17 11/25/17 [Vitamin D3] Lidocaine/Prilocaine CREAM [Emla] 1 appl TP AD PRN 09/13/17 11/25/17 OxyCODONE/APAP 10/325 [Percocet 1 tab PO Q6H PRN 09/13/17 11/25/17 10/325 MG] Oxygen 2 l NS AD 09/13/17 11/25/17 Sennosides [Senna] 8.6 mg PO BID 09/13/17 11/25/17 Sevelamer [Renvela] 800 mg PO TIDWM 09/13/17 11/25/17 Albuterol Neb [AccuNeb] 0.63 mg IH Q6H PRN 10/18/17 11/25/17 metOLazone [Zaroxolyn] 1 tab PO DAILY 10/26/17 11/25/17 Collagenase Oint [Santyl] 1 appl TP AD 11/11/17 11/25/17 Oxybutynin [Ditropan] 5 mg PO TID 11/11/17 11/25/17 Insulin LISPRO [Humalog Kwikpen 35 unit SQ ACHS 11/25/17 11/25/17 U-100] Previous Rx's Medication Instructions Recorded Gabapentin [Neurontin] 100 mg PO TID #60 capsule 10/21/17 Rosuvastatin [Crestor] 10 mg PO HS #15 tablet 10/21/17 Docusate Sodium [Colace] 100 mg PO BID #60 capsule 10/26/17 Isosorbide MONOnitrate (24 HR) 30 mg PO DAILY #30 tab.er.24h 11/19/17 [Imdur] amLODIPine [Norvasc] 10 mg PO DAILY #30 tablet 11/19/17 Linezolid [Zyvox] 600 mg PO BID #10 tablet 12/03/17 Insulin DETEMIR [Levemir] 5 unit SQ BID 30 Days #1 [id number] 12/07/17 Oxycodone HCl 5 mg PO Q6H 7 Days #28 tablet 12/07/17 Allergies Allergy/AdvReac Type Severity Reaction Status Date / Time No Known Allergies Allergy Verified 11/24/17 09:01 All systems ED: reviewed and negative except as stated. Constitutional: Denies: fever, chills, weakness, weight change Eyes: Denies: eye pain, eye discharge, vision change ENT ED: Denies: ear pain, throat pain, dental pain, hearing loss, epistaxis, congestion, dysphagia Cardiovascular: Reports: chest pain. Denies: palpitations, dyspnea on exertion , edema, syncope Respiratory: Denies: cough, dyspnea, wheezes, hemoptysis, stridor Gastrointestinal: Denies: abdominal pain, nausea, vomiting, diarrhea, constipation, hematemesis, melena, hematochezia Genitourinary: Denies: dysuria, frequency, hematuria, discharge Musculoskeletal: Denies: back pain, neck pain, arthralgia, myalgia Integumentary: Denies: rash, abrasion, lesions Neurological: Denies: headache, weakness, numbness, paresthesias, confusion, abnormal gait, vertigo Psychiatric: Denies: anxiety, depression, suicidal thoughts, homicidal thoughts , auditory hallucinations, visual hallucinations Endocrine: Denies: fatigue Hematological/Lymphatic: Denies: easy bleeding, easy bruising Allergic/Immunologic: Denies: facial swelling, urticaria Chest Pain PMH - Past Medical History Medical history: Reports: COPD (Not oxygen dependent), coronary artery disease ( Status post stents and CABG), CVA, DVT, dialysis (End-stage renal disease, [facility] Dr. 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: other - Social History Smoking Status: Current every day smoker Alcohol use: Reports: none Drug use: Reports: none Physical Exam - General Limitations: no limitations General appearance: alert, in no apparent distress - Head Head exam: atraumatic, normocephalic, normal inspection - Eye Eye exam: Present: normal appearance, PERRL, EOMI - ENT ENT exam: normal exam, normal oropharynx, mucous membranes moist - Neck Neck exam: Present: normal inspection, full ROM, trachea midline - Chest Chest inspection: Present: normal inspection, symmetric chest wall rise - Respiratory Respiratory exam: Present: normal lung sounds bilaterally - Cardiovascular Cardiovascular exam: Present: regular rate, normal rhythm, normal heart sounds - Abdominal Exam Abdominal exam: Present: soft, Non-Tender. Absent: tenderness, distention, guarding, rebound, rigidity - Extremities Exam Extremities exam: Present: normal inspection, full ROM. Absent: tenderness, pedal edema - Expanded Lower Extremity Exam Neurovascular/Tendon exam: Absent: motor deficit, sensory deficit, tendon deficit Gait: not tested/not observed - Back Exam Back exam: Present: normal inspection, full ROM. Absent: tenderness - Neurological Exam Neurological exam: Present: alert, oriented X3 - Psychiatric Psychiatric exam: Present: normal affect, normal mood - Skin Skin exam: Present: warm, dry, intact, normal color Course - Reevaluation(s) Reevaluation #1: 62-year-old dialysis patient comes in with chest pain after dialysis. Also has an elevated blood sugar of 536 no evidence of DKA. Time: 14:43 - Consultations Consultation #1: Discussed with , admit. Time: 14:43 Vital Signs Temperature 98.1 F 12/10/17 13:11 Pulse Rate 82 12/10/17 13:11 Respiratory Rate 16 12/10/17 13:11 Blood Pressure 123/63 12/10/17 13:11 O2 Sat by Pulse Oximetry 100 12/10/17 13:11 Temperature 98.1 F 12/10/17 13:11 Pulse Rate 82 12/10/17 13:11 Respiratory Rate 16 12/10/17 13:11 Blood Pressure 123/63 12/10/17 13:11 O2 Sat by Pulse Oximetry 100 12/10/17 13:17 Oxygen Delivery Oxygen Delivery Nasal Cannula Chest Pain - Lab Data Lab results reviewed: Yes I reviewed the patient's lab results. Result diagrams: 12/10/17 13:35 12/10/17 13:35 Lab Results 12/10/17 12/10/17 12/10/17 Range/Units 13:35 13:35 13:35 WBC 11.0 (4.3-11.1) K/mcL RBC 3.30 L (3.82-4.97) M/mcL Hgb 9.0 L (11.5-15.4) g/dL Hct 29.2 L (35.3-44.9) % MCV 88.5 (83.0-100.0) fL MCH 27.3 L (28.0-33.3) pg MCHC 30.8 L (31.6-35.5) g/dL RDW 15.8 H (11.5-14.5) % Plt Count 243 (140-400) K/mcL MPV 9.9 (9.4-12.4) fL Immature Gran % 2.6 (0-4) % Seg Neutrophils % 74.0 % Lymphocytes % 15.2 % Monocytes % 5.2 % Eosinophils % 2.3 % Basophils % 0.7 % Neutrophils # 8.2 (1.6-8.9) K/mcL Lymphocytes # 1.7 (0.6-4.6) K/mcL Monocytes # 0.6 (0.0-1.3) K/mcL Eosinophils # 0.3 (0.0-0.6) K/mcL Basophils # 0.1 (0.0-0.2) K/mcL PT 11.8 (9.4-12.1) Seconds INR 1.1 APTT 44.5 H (26.0-36.0) Seconds Sodium (136-145) mEq/L Potassium (3.5-5.1) mEq/L Chloride (98-107) mEq/L Carbon Dioxide (23-29) mEq/L BUN (8-23) mg/dL Creatinine (0.60-1.20) mg/dL Est GFR ( Amer) (> 60) Est GFR (Non-Af Amer) (> 60) BUN/Creatinine Ratio (6-26) Glucose (70-105) mg/dL Calculated Osmolality (280-300) Lactic Acid (0.5-2.2) mmol/L Calcium (8.6-10.3) mg/dL Troponin I (< 0.04) ng/mL B-Natriuretic Peptide 744 H (Less than 100) pg/mL Beta-Hydroxybutyric Acd (0.02-0.27) mmol/L 12/10/17 12/10/17 12/10/17 Range/Units 13:35 13:35 13:35 WBC (4.3-11.1) K/mcL RBC (3.82-4.97) M/mcL Hgb (11.5-15.4) g/dL Hct (35.3-44.9) % MCV (83.0-100.0) fL MCH (28.0-33.3) pg MCHC (31.6-35.5) g/dL RDW (11.5-14.5) % Plt Count (140-400) K/mcL MPV (9.4-12.4) fL Immature Gran % (0-4) % Seg Neutrophils % % Lymphocytes % % Monocytes % % Eosinophils % % Basophils % % Neutrophils # (1.6-8.9) K/mcL Lymphocytes # (0.6-4.6) K/mcL Monocytes # (0.0-1.3) K/mcL Eosinophils # (0.0-0.6) K/mcL Basophils # (0.0-0.2) K/mcL PT (9.4-12.1) Seconds INR APTT (26.0-36.0) Seconds Sodium 128 L (136-145) mEq/L Potassium 3.9 (3.5-5.1) mEq/L Chloride 92 L (98-107) mEq/L Carbon Dioxide 26 (23-29) mEq/L BUN 24 H (8-23) mg/dL Creatinine 2.11 H (0.60-1.20) mg/dL Est GFR ( Amer) 29 L (> 60) Est GFR (Non-Af Amer) 24 L (> 60) BUN/Creatinine Ratio 11 (6-26) Glucose 536 H* (70-105) mg/dL Calculated Osmolality 294 (280-300) Lactic Acid 2.1 (0.5-2.2) mmol/L Calcium 8.7 (8.6-10.3) mg/dL Troponin I 0.03 (< 0.04) ng/mL B-Natriuretic Peptide (Less than 100) pg/mL Beta-Hydroxybutyric Acd < 0.10 (0.02-0.27) mmol/L - Radiology Data Radiology results reviewed: Yes I reviewed the patient's radiology results. Chest X-Ray 12/10/17 13:12 IMPRESSION: No acute cardiopulmonary disease. D/ / César Vallejo MD / César Vallejo MD Interpreting Provider: César Vallejo MD - EKG Data EKG attestation: Yes I reviewed and interpreted this EKG. EKG shows normal: sinus rhythm Rate: normal Rhythm: NSR [place]/QRS: normal Interpretation: no acute changes
[2017-12-10 13:47] LABS: Basophils # 0.1 K/mcL (0.0-0.2); Basophils % 0.7 %; Eosinophils # 0.3 K/mcL (0.0-0.6); Eosinophils % 2.3 %; Hematocrit 29.2 % (35.3-44.9); Immature Granulocytes % 2.6 % (0-4); Lymphocytes # 1.7 K/mcL (0.6-4.6); Lymphocytes % 15.2 %; Mean Corpuscular HGB Conc 30.8 g/dL (31.6-35.5); Mean Corpuscular Hemoglobin 27.3 pg (28.0-33.3); Mean Corpuscular Volume 88.5 fL (83.0-100.0); Mean Platelet Volume 9.9 fL (9.4-12.4); Monocytes # 0.6 K/mcL (0.0-1.3); Monocytes % 5.2 %; Neutrophils # 8.2 K/mcL (1.6-8.9); Platelet Count 243 K/mcL (140-400); Red Cell Distribution Width 15.8 % (11.5-14.5)
[2017-12-10 13:52] LABS: INR 1.1; Prothrombin Time 11.8 Seconds (9.4-12.1)
[2017-12-10 13:55] LABS: Activated Partial Thrombo Time 44.5 Seconds (26.0-36.0)
[2017-12-10 14:09] LABS: Calcium 8.7 mg/dL (8.6-10.3); Potassium 3.9 mEq/L (3.5-5.1); Troponin I 0.03 ng/mL (< 0.04)
--- NOTE | 2017-12-10 14:57 | Internal Med History&Physical ---
Date of Encounter: 12/10/17 Time of Encounter: 14:53 Assessment and Plan (1) Chest pain Current visit: Yes Status: Acute The patient with known CAD CABG and multiple stents in the past had episode of chest pain while on dialysis with transient troponin is scheduled for nuclear stress test in a.m. 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 transplanted heart: [place] heart Associated angina: without angina Qualified Code(s): I25.10 - Atherosclerotic heart disease of [place] coronary artery without angina pectoris (5) COPD (chronic obstructive pulmonary disease) Current visit: No Status: Chronic no active wheezing at present Qualifiers: COPD type: chronic bronchitis Chronic bronchitis type: simple Qualified Code(s): J41.0 - Simple chronic bronchitis (6) Morbid (severe) obesity due to excess calories Current visit: No Status: Chronic (7) HTN (hypertension) Current visit: No Status: Chronic chronic and well controlled Qualifiers: Hypertension type: essential hypertension Qualified Code(s): I10 - Essential (primary) hypertension (8) Hyperglycemia Current visit: No Status: Acute hyperglycemia and uncontrolled diabetes not in dka (9) Morbid obesity with BMI of 45.0-49.9, adult Current visit: No Status: Chronic Internal Medicine - H&P: HPI Chief complaint: chest pain Admitted From: Emergency Dept Plans for Post Hospital Care: Home History of present illness: Ms. Riley is a 62 year old female Patient with history of end-stage renal disease on dialysis, COPD, CAD had a CABG in the past and multiple stents in the past, CVA, DVT, GI bleed and gerd CAD, high cholesterol, hypertension, sacral ulcer stage II, anxiety and depression and chronic atrial fibrillation. Patient was undergoing dialysis today and developed chest pain describes as pressure associated with shortness of breath and sweats therefore she was sent to the emergency room the chest pain has now subsided but not completely resolved. EKG is unremarkable some nonspecific ST-T changes. Patient last admission apparently November she had refused stress test but this time she is agreeable for stress test tomorrow. Also her sugar has been running high glucoses 536 but she is not in DKA. Past Med Surg Social Fam HX - Past Medical History Medical history: COPD (Not oxygen dependent), coronary artery disease (Status post stents and CABG), CVA, DVT, dialysis (End-stage renal disease, followed by Dr. Rivers, dialyses Wednesdays and Fridays), GERD, GI bleed, hyperlipidemia, hypertension, peripheral artery disease, other (Neuropathy, UTIs with Klebsiella and Escherichia coli ESBL, tobacco use, sacral ulcer stage II, osteoarthritis, depression) Psychiatric history: anxiety, depression, schizophrenia, previous psychiatric hospitalization, other - Past Surgical History Surgical History: angioplasty/stent, appendectomy, cholecystectomy, coronary bypass (CABG), hysterectomy, knee replacement, other, IVC filter - Social History Smoking Status: Current every day smoker Smokeless Tobacco Status: No Alcohol use: none Drug use: none - Family History Father Family Member Ethnicity: Non- Living Status: Hx Family Cardiac Disorders: Yes (CAD, [place]) Hx Family Cancer: Yes (Polycythemia) Hx Family Endocrine Disorder: Yes (DM) Mother Family Member Ethnicity: Non- Living Status: Still Living Hx Family Respiratory Disorders: Yes (End stage COPD) Brother Family Member Ethnicity: Non- Living Status: Still Living Sister Adopted: No Family Member Ethnicity: Non- Living Status: Still Living Hx Family Cardiac Disorders: No Hx Family Respiratory Disorders: No Hx Family Cancer: No Hx Family GI Disorders: No Hx Family Endocrine Disorder: No Hx Family Neuromuscular Disorders: No Hx Family Neurologic Disorders: No Hx Family HEENT Disorders: No Hx Family Autoimmune Disorders: No Internal Medicine - H&P: Meds Clopidogrel [Plavix] 75 mg PO DAILY 05/11/15 [History] Omeprazole [PriLOSEC] 20 mg PO BID 08/01/15 [History] Colestipol HCl [Colestid] 1 gm PO BID 06/12/15 [History] Carvedilol 12.5 mg PO BID 10/28/15 [History] Calcium Acetate [Phos-LO] 1,334 mg PO TIDWM 09/06/16 [History] Folic Acid/Vit Bcomp,C [Renal Vitamin Tablet] 0.8 mg PO DAILY 04/15/17 [History] ARIPiprazole [Abilify] 10 mg PO DAILY 09/13/17 [History] Aspirin Enteric Coated [Aspirin EC] 81 mg PO DAILY 09/13/17 [History] Budesonide/Formoterol 160/4.5 [Symbicort 160/4.5] 2 puff IH BIDR 09/13/17 [ History] Cholecalciferol (Vitamin D3) [Vitamin D3] 50,000 unit PO TH 09/13/17 [History] Lidocaine/Prilocaine CREAM [Emla] 1 appl TP AD PRN 09/13/17 [History] OxyCODONE/APAP 10/325 [Percocet 10/325 MG] 1 tab PO Q6H PRN 09/13/17 [History] Oxygen 2 l NS AD 09/13/17 [History] Sennosides [Senna] 8.6 mg PO BID 09/13/17 [History] Sevelamer [Renvela] 800 mg PO TIDWM 09/13/17 [History] Albuterol Neb [AccuNeb] 0.63 mg IH Q6H PRN 10/18/17 [History] Gabapentin [Neurontin] 100 mg PO TID #60 capsule 10/21/17 [Rx] Rosuvastatin [Crestor] 10 mg PO HS #15 tablet 10/21/17 [Rx] Docusate Sodium [Colace] 100 mg PO BID #60 capsule 10/26/17 [Rx] metOLazone [Zaroxolyn] 1 tab PO DAILY 10/26/17 [History] Collagenase Oint [Santyl] 1 appl TP AD 11/11/17 [History] Oxybutynin [Ditropan] 5 mg PO TID 11/11/17 [History] Isosorbide MONOnitrate (24 HR) [Imdur] 30 mg PO DAILY #30 tab.er.24h 11/19/17 [ Rx] amLODIPine [Norvasc] 10 mg PO DAILY #30 tablet 11/19/17 [Rx] Insulin LISPRO [Humalog Kwikpen U-100] 35 unit SQ ACHS 11/25/17 [History] Linezolid [Zyvox] 600 mg PO BID #10 tablet 12/03/17 [Rx] Insulin DETEMIR [Levemir] 5 unit SQ BID 30 Days #1 [id number] 12/07/17 [Rx] Oxycodone HCl 5 mg PO Q6H 7 Days #28 tablet 12/07/17 [Rx] Parenteral Amino Acid 20% No.1 [Prosol] 12/10/17 [History] 3 Allergy/AdvReac Type Severity Reaction Status Date / Time No Known Allergies Allergy Verified 11/24/17 09:01 All Systems PM: A 10-system review of systems was performed and is negative for pertinent findings except as documented above in the HPI. - Constitutional Constitutional: no chills, no fever(s), no night sweats - EENT Eyes: no change in vision, no discharge, no pain, no photophobia Ears: no ear discharge, no ear pain, no tinnitus Nose, mouth and throat: no dysphagia, no nasal discharge, no neck pain, no sore throat - Cardiovascular Cardiovascular ROS IM: chest pain, dyspnea on exertion - Respiratory Respiratory: dyspnea on exertion - Gastrointestinal Gastrointestinal: no abdominal pain, no diarrhea, no hematemesis, no hematochezia, no melena, no nausea, no vomiting - Genitourinary Genitourinary: no change in urinary stream, no dysuria, no flank pain, no hematuria - Musculoskeletal Musculoskeletal ROS IM: no numbness, no tingling - Integumentary Integumentary IM: no rash, no unusual bruising - Constitutional Vitals: Temp Pulse Resp BP Pulse Ox 98.1 F 82 16 123/63 100 12/10/17 13:11 12/10/17 13:11 12/10/17 13:11 12/10/17 13:11 12/10/17 13:17 General appearance: Present: mild distress - Eye Eye exam: Present: PERRL, conjuntiva pink, sclera anicteric Pupils: Present: PERRL - Neck Neck exam general surgery: Present: supple, trachea midline. Absent: lymphadenopathy - Respiratory Respiratory exam: Present: prolonged expiratory phase, rhonchi - Cardiovascular Cardiovascular exam: Present: +S1, systolic murmur - GI/Abdominal GI/Abdominal exam: Present: normal bowel sounds, soft, no peritoneal signs. Absent: distended, tenderness - Extremities Exam Extremities exam: Present: warm, radial pulses palpable and symmetrical. Absent : calf tenderness, cyanotic, pedal edema Internal Med - H&P Results - Labs CBC & Chem 7: 12/10/17 13:35 12/10/17 13:35 Labs: Short CBC 12/10/17 Range/Units 13:35 WBC 11.0 (4.3-11.1) K/mcL Hgb 9.0 L (11.5-15.4) g/dL Hct 29.2 L (35.3-44.9) % Plt Count 243 (140-400) K/mcL Neutrophils # 8.2 (1.6-8.9) K/mcL BMP 12/10/17 13:35 Sodium 128 L Potassium 3.9 Chloride 92 L Carbon Dioxide 26 BUN 24 H Creatinine 2.11 H Glucose 536 H* Calcium 8.7 Cardiac Enzymes 12/10/17 Range/Units 13:35 Troponin I 0.03 (< 0.04) ng/mL - Impressions ITS Impressions Chest X-Ray 12/10/17 13:12 IMPRESSION: No acute cardiopulmonary disease. D/ / César Vallejo MD / César Vallejo MD Interpreting Provider: César Vallejo MD
[2017-12-10] MEDS ORDERED: Acetaminophen 325 MG TABLET PO PRN (15:04)
[2017-12-10] MEDS ORDERED: Naloxone 0.4 MG/ML INJ IVP PRN (15:04)
[2017-12-10] MEDS ORDERED: traMADol 50 MG TABLET PO PRN (15:04)
[2017-12-10] MEDS ORDERED: *HR* OxyCODONE/APAP 10/325 TABLET PO PRN (15:07)
[2017-12-10] MEDS ORDERED: Albuterol Neb 0.63 MG/3 ML VIAL IH PRN (15:07)
[2017-12-10] MEDS ORDERED: D5% in Water 1,000 ML IVC PRN (15:14)
[2017-12-10] MEDS ORDERED: Dextrose Gel 15 GM/37.5 ML TUBE PO PRN ×2 (15:14)
[2017-12-10] MEDS ORDERED: *HR* Dextrose 50 % in Water (Syg) 50 ML SYRINGE IVP PRN (15:14)
[2017-12-10] MEDS ORDERED: *HR* OxyCODONE Immed Rel 5 MG TABLET PO SCH (15:15)
[2017-12-10] MEDS: Insulin LISPRO 300 UNITS/3 ML VIAL SQ SCH ×2 (17:29→21:53)
[2017-12-10] MEDS: Calcium Acetate 667 MG CAPSULE PO SCH (17:30)
[2017-12-10] MEDS ORDERED: COLESTIPOL HCL 1 GM PO SCH (21:00)
[2017-12-10] MEDS: Budesonide/Formoterol 160/4.5 MDI IH SCH (21:32)
[2017-12-10] MEDS: Linezolid 600 MG TABLET PO SCH (21:52)
[2017-12-10] MEDS: Gabapentin 100 MG CAPSULE PO SCH (21:53)
[2017-12-10] MEDS: Insulin DETEMIR 100 UNIT/ML X5UNITS SQ SCH (21:53)
[2017-12-10] MEDS: Sennosides 8.6 MG TABLET PO SCH (21:53)
[2017-12-11 01:05] LABS: Hematocrit 27.9 % (35.3-44.9); Hemoglobin 8.7 g/dL (11.5-15.4); Mean Corpuscular HGB Conc 31.2 g/dL (31.6-35.5); Mean Corpuscular Hemoglobin 27.4 pg (28.0-33.3); Mean Platelet Volume 10.1 fL (9.4-12.4); Platelet Count 231 K/mcL (140-400); Red Blood Count 3.17 M/mcL (3.82-4.97); Red Cell Distribution Width 15.9 % (11.5-14.5)
[2017-12-11 01:16] LABS: Chol/HDL Ratio 4.3 (0-4.9); Magnesium 1.8 mg/dL (1.6-2.6)
[2017-12-11] MEDS ORDERED: Regadenoson 0.4 MG/5 ML SYRINGE IVP ONE (06:11)
[2017-12-11 07:30] LABS: Troponin I < 0.03 ng/mL (< 0.04)
[2017-12-11 07:45] LABS: BUN/Creatinine Ratio 10 (6-26); Blood Urea Nitrogen 25 mg/dL (8-23); Carbon Dioxide 28 mEq/L (23-29); Chloride 96 mEq/L (98-107); Glucose 244 mg/dL (70-105); Osmolality,Calculated 286 (280-300); Sodium 132 mEq/L (136-145); eGFR For African Americans 22 (> 60); eGFR For Non-African Americans 18 (> 60)
[2017-12-11] MEDS: Budesonide/Formoterol 160/4.5 MDI IH SCH ×2 (07:48→22:03)
[2017-12-11] MEDS: metOLazone 2.5 MG TABLET PO SCH (11:01)
[2017-12-11] MEDS: amLODIPine 5 MG TABLET PO SCH (11:01)
[2017-12-11] MEDS: Sennosides 8.6 MG TABLET PO SCH ×2 (11:01→21:53)
[2017-12-11] MEDS: Aspirin Enteric Coated 81 MG Tablet PO SCH (11:01)
[2017-12-11] MEDS: Gabapentin 100 MG CAPSULE PO SCH ×3 (11:01→21:54)
[2017-12-11] MEDS: ARIPiprazole 10 MG TABLET PO SCH (11:02)
[2017-12-11] MEDS: Linezolid 600 MG TABLET PO SCH ×2 (11:02→21:53)
[2017-12-11] MEDS: Renal Vitamin 1 MG CAPSULE PO SCH (11:02)
[2017-12-11] MEDS: Isosorbide MONOnitrate (24 HR) 30 MG TAB.ER.24H PO SCH (11:02)
[2017-12-11] MEDS: Calcium Acetate 667 MG CAPSULE PO SCH ×3 (11:17→17:07)
[2017-12-11] MEDS: Insulin LISPRO 300 UNITS/3 ML VIAL SQ SCH ×4 (11:17→21:56)
--- NOTE | 2017-12-11 11:42 | Nephrology Consult Note ---
Date of Encounter: 12/11/17 Time of Encounter: 10:00 Assessment and Plan (1) ESRD (end stage renal disease) Current Visit: Yes Status: Chronic Plan for next HD on Wednesday Biochemically stable today (Wednesday). History of Present Illness - Reason for Consult Consult date: 12/11/17 end stage renal disease Requesting physician: Angelo Berkowitz - Chief Complaint ESRD, presented with CP - History of Present Illness Lynnette Riley is a very pleasant 62 y/o obese WF with a pmh of HTN, ESRD on HD M/ W/F and et al who presented with CP. Her primary gatekeeper is Dr. Rivers. She completed HD yesterday for about half a treatment. She did not affirm N/V/D, F/ C but did affirm CP that started while on HD. She dialyzes at [facility] in [place], [place], via a Perm[facility]. Past Med Surg Social Fam HX - Past Medical History Medical history: COPD, coronary artery disease, CVA, DVT, dialysis, GERD, GI bleed, hyperlipidemia, hypertension, peripheral artery disease, other Psychiatric history: anxiety, depression, schizophrenia, previous psychiatric hospitalization, other - Past Surgical History Surgical History: angioplasty/stent, appendectomy, cholecystectomy, coronary bypass (CABG), hysterectomy, knee replacement, other, IVC filter - Social History Smoking Status: Current every day smoker Smokeless Tobacco Status: No Alcohol use: none Drug use: none - Family History Father Family Member Ethnicity: Non- Living Status: Hx Family Cardiac Disorders: Yes (CAD, [place]) Hx Family Cancer: Yes (Polycythemia) Hx Family Endocrine Disorder: Yes (DM) Mother Family Member Ethnicity: Non- Living Status: Still Living Hx Family Respiratory Disorders: Yes (End stage COPD) Brother Family Member Ethnicity: Non- Living Status: Still Living Sister Adopted: No Family Member Ethnicity: Non- Living Status: Still Living Hx Family Cardiac Disorders: No Hx Family Respiratory Disorders: No Hx Family Cancer: No Hx Family GI Disorders: No Hx Family Endocrine Disorder: No Hx Family Neuromuscular Disorders: No Hx Family Neurologic Disorders: No Hx Family HEENT Disorders: No Hx Family Autoimmune Disorders: No Medications and Allergies Clopidogrel [Plavix] 75 mg PO DAILY 05/11/15 [History] Omeprazole [PriLOSEC] 20 mg PO BID 05/11/15 [History] Colestipol HCl [Colestid] 1 gm PO BID 06/12/15 [History] Carvedilol 12.5 mg PO BID 10/28/15 [History] Calcium Acetate [Phos-LO] 1,334 mg PO TIDWM 09/06/16 [History] Folic Acid/Vit Bcomp,C [Renal Vitamin Tablet] 0.8 mg PO DAILY 04/15/17 [History] ARIPiprazole [Abilify] 10 mg PO DAILY 09/13/17 [History] Aspirin Enteric Coated [Aspirin EC] 81 mg PO DAILY 09/13/17 [History] Budesonide/Formoterol 160/4.5 [Symbicort 160/4.5] 2 puff IH BIDR 09/13/17 [ History] Cholecalciferol (Vitamin D3) [Vitamin D3] 50,000 unit PO TH 09/13/17 [History] Lidocaine/Prilocaine CREAM [Emla] 1 appl TP AD PRN 09/13/17 [History] OxyCODONE/APAP 10/325 [Percocet 10/325 MG] 1 tab PO Q6H PRN 09/13/17 [History] Oxygen 2 l NS AD 09/13/17 [History] Sennosides [Senna] 8.6 mg PO BID 09/13/17 [History] Sevelamer [Renvela] 800 mg PO TIDWM 09/13/17 [History] Albuterol Neb [AccuNeb] 0.63 mg IH Q6H PRN 10/18/17 [History] Gabapentin [Neurontin] 100 mg PO TID #60 capsule 10/21/17 [Rx] Rosuvastatin [Crestor] 10 mg PO HS #15 tablet 10/21/17 [Rx] Docusate Sodium [Colace] 100 mg PO BID #60 capsule 10/26/17 [Rx] metOLazone [Zaroxolyn] 2.5 mg PO DAILY 10/26/17 [History] Collagenase Oint [Santyl] 1 appl TP AD 11/11/17 [History] Oxybutynin [Ditropan] 5 mg PO TID 11/11/17 [History] Isosorbide MONOnitrate (24 HR) [Imdur] 30 mg PO DAILY #30 tab.er.24h 11/19/17 [ Rx] amLODIPine [Norvasc] 10 mg PO DAILY #30 tablet 11/19/17 [Rx] Insulin LISPRO [Humalog Kwikpen U-100] 35 unit SQ ACHS 11/25/17 [History] Linezolid [Zyvox] 600 mg PO BID #10 tablet 12/03/17 [Rx] Insulin DETEMIR [Levemir] 5 unit SQ BID 30 Days #1 [id number] 12/07/17 [Rx] Parenteral Amino Acid 20% No.1 [Prosol] 12/10/17 [History] 3 Allergy/AdvReac Type Severity Reaction Status Date / Time No Known Allergies Allergy Verified 11/24/17 09:01 Review of Systems All Systems: reviewed and no additional remarkable complaints except as stated Exam - Vital Signs Vital signs: Initial Vital Signs Temp Pulse Resp BP Pulse Ox 98.1 F 82 16 123/63 100 12/10/17 13:11 12/10/17 13:11 12/10/17 13:11 12/10/17 13:11 12/10/17 13:11 Vital Signs - Last 8 Hours Temp Pulse Resp BP Pulse Ox 12/11/17 11:07 99 12/11/17 07:48 18 99 12/11/17 04:25 99.2 F 84 19 167/72 100 Intake and Output 12/10/17 12/11/17 12/11/17 23:59 07:59 15:59 Intake Total 480 / 480 0 / 0 0 / 0 Output Total 0 / 0 300 / 300 0 / 0 Balance 480 / 480 -300 / -300 0 / 0 Intake: Oral 480 / 480 0 / 0 0 / 0 Output: Urine 0 / 0 300 / 300 0 / 0 Other: Meal [place] NPO Percent of Meal Consumed 100% 0% # Urine Diapers 1 1 Weight 103.5 kg Blood Glucose* 280 Patient Weight 12/11/17 23:59 Weight 103.5 kg - General Appearance General appearance: well-developed, appears started age EENT: ATNC, PERRL, mucous membranes moist Respiratory: clear Cardiology: edema (trace to 1+ pretibial pitting edema b/l), regular rate, regular rhythm, normal S1, normal S2 - Dialysis Access Dialysis Vascular Access: Venous Catheter Gastrointestinal: normoactive bowel sounds, no tenderness, no guarding, obese Integumentary: warm and dry Neurologic: alert and oriented x3 Musculoskeletal: no cyanosis, no clubbing Results - Lab Results 12/14/17 05:17 12/14/17 05:17 Most recent lab results Calcium 9.0 mg/dL (8.6-10.3) 12/11/17 06:47 Magnesium 1.8 mg/dL (1.6-2.6) 12/11/17 00:44 I reviewed progress notes, labs, med lists, vital signs, imaging and labs. Consult Discharge Plan - Plan Referrals: Tristen Quintana MD [Primary Care Provider] -
[2017-12-11] MEDS: Insulin DETEMIR 100 UNIT/ML X5UNITS SQ SCH ×2 (12:09→21:55)
[2017-12-11] MEDS ORDERED: *HR* Heparin 5,000 UNIT/ML VIAL IVP PRN (12:33)
[2017-12-11] MEDS ORDERED: *HR* Heparin 5,000 UNIT/ML VIAL IVP ONE (12:33)
[2017-12-11 12:59] LABS: Hematocrit 31.9 % (35.3-44.9); Hemoglobin 9.8 g/dL (11.5-15.4); Mean Corpuscular HGB Conc 30.7 g/dL (31.6-35.5); Mean Corpuscular Hemoglobin 27.4 pg (28.0-33.3); Mean Corpuscular Volume 89.1 fL (83.0-100.0); Mean Platelet Volume 9.8 fL (9.4-12.4); Platelet Count 231 K/mcL (140-400); Red Blood Count 3.58 M/mcL (3.82-4.97)
[2017-12-11 13:05] LABS: INR 1.1; Prothrombin Time 12.2 Seconds (9.4-12.1)
[2017-12-11 13:07] LABS: Activated Partial Thrombo Time 33.3 Seconds (26.0-36.0)
[2017-12-11] MEDS: Heparin 25,000 UNIT/500 ML D5W 25,000 UNIT/500 ML BAG IVC SCH ×2 (13:57→21:51)
[2017-12-11] MEDS: *HR* OxyCODONE/APAP 10/325 TABLET PO PRN (13:58)
--- NOTE | 2017-12-11 19:16 | Internal Med Progress Note ---
Date of Encounter: 12/12/17 Time of Encounter: 11:00 - Assessment and plan (1) Chest pain Current Visit: Yes Status: Acute Assessment and plan: Patient with intermittent chest pain throughout the day Nuclear medicine stress tests revealed small size, moderate intensity, reversible inferior lateral defect consistent with ischemia Cardiology has been consulted and appreciate recommendations Qualifiers: Chest pain type: unspecified Qualified Code(s): R07.9 - Chest pain, unspecified (2) ESRD (end stage renal disease) Current Visit: Yes Status: Chronic Assessment and plan: Nephrology consulted for hemodialysis management (3) CAD (coronary artery disease) Current Visit: No Status: Chronic Assessment and plan: ACS rule out as above; continue home meds addition to heparin drip Qualifiers: Coronary Disease-Associated Artery/Lesion type: [place] artery [place] vs. transplanted heart: [place] heart Associated angina: without angina Qualified Code(s): I25.10 - Atherosclerotic heart disease of [place] coronary artery without angina pectoris (4) DMII (diabetes mellitus, type 2) Current Visit: No Status: Acute Assessment and plan: Continue home meds Qualifiers: Diabetes mellitus complication status: with unspecified complications Qualified Code(s): E11.8 - Type 2 diabetes mellitus with unspecified complications; Z79.4 - FPC (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 of insulin; Z79.4 - director long term care ( 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 of insulin; Z79.4 - director long term care (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 of insulin; Z79.4 - FPC (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 of insulin (5) DVT prophylaxis Current Visit: No Status: Acute Assessment and plan: On heparin drip - Subjective Interval history: Patient with intermittent chest pain throughout the day Nuclear medicine stress tests revealed small size, moderate intensity, reversible inferior lateral defect consistent with ischemia Discussed with instrument mechanic who will follow patient - Constitutional Vitals: Temp Pulse Resp BP Pulse Ox 98.0 F 91 18 130/74 97 12/11/17 16:17 12/11/17 16:17 12/11/17 16:17 12/11/17 16:17 12/11/17 16:17 General appearance: Present: mild distress - Respiratory Respiratory exam: Present: CTAB. Absent: accessory muscle use, rales, rhonchi, wheezes - Cardiovascular Cardiovascular exam: Present: RRR, +S1, +S2. Absent: diastolic murmur, gallop, rubs, systolic murmur Internal Medicine: Result - Labs CBC & Chem 7: 12/11/17 12:45 12/11/17 06:47 Labs: Short CBC 12/11/17 12/11/17 Range/Units 00:44 12:45 WBC 8.7 10.6 (4.3-11.1) K/mcL Hgb 8.7 L 9.8 L (11.5-15.4) g/dL Hct 27.9 L 31.9 L (35.3-44.9) % Plt Count 231 231 (140-400) K/mcL BMP 12/11/17 06:47 Sodium 132 L Potassium 4.0 Chloride 96 L Carbon Dioxide 28 BUN 25 H Creatinine 2.63 H Glucose 244 H Calcium 9.0 Cardiac Enzymes 12/10/17 12/11/17 12/11/17 Range/Units 18:48 00:44 06:47 Troponin I < 0.03 < 0.03 < 0.03 (< 0.04) ng/mL 12/11/17 Range/Units 18:10 Troponin I < 0.03 (< 0.04) ng/mL - ABG Interpretation ABG results: PT/INR, D-dimer PT 12.2 Seconds (9.4-12.1) H 12/11/17 12:45 Consult Discharge Plan - Plan Referrals: Tristen Quintana MD [Primary Care Provider] -
[2017-12-11 20:53] LABS: Activated Partial Thrombo Time 214.3 Seconds (26.0-36.0)
[2017-12-11 21:24] LABS: Heparin anti-factor XA UFH 0.81 IU/mL (0.30-0.70)
[2017-12-12] MEDS: *HR* Heparin 5,000 UNIT/ML VIAL IVP PRN (07:06)
[2017-12-12] MEDS: Budesonide/Formoterol 160/4.5 MDI IH SCH ×2 (07:59→21:55)
[2017-12-12] MEDS: Isosorbide MONOnitrate (24 HR) 30 MG TAB.ER.24H PO SCH (08:08)
[2017-12-12] MEDS: Aspirin Enteric Coated 81 MG Tablet PO SCH (08:08)
[2017-12-12] MEDS: Sennosides 8.6 MG TABLET PO SCH ×2 (08:08→21:07)
[2017-12-12] MEDS: ARIPiprazole 10 MG TABLET PO SCH (08:08)
[2017-12-12] MEDS: metOLazone 2.5 MG TABLET PO SCH (08:08)
[2017-12-12] MEDS: amLODIPine 5 MG TABLET PO SCH (08:09)
[2017-12-12] MEDS: Calcium Acetate 667 MG CAPSULE PO SCH ×3 (08:09→16:08)
[2017-12-12] MEDS: Renal Vitamin 1 MG CAPSULE PO SCH (08:09)
[2017-12-12] MEDS: Insulin LISPRO 300 UNITS/3 ML VIAL SQ SCH ×4 (08:10→21:09)
[2017-12-12 08:51] LABS: Basophils # 0.1 K/mcL (0.0-0.2); Basophils % 0.9 %; Eosinophils # 0.2 K/mcL (0.0-0.6); Eosinophils % 2.9 %; Hematocrit 32.5 % (35.3-44.9); Immature Granulocytes % 1.7 % (0-4); Lymphocytes # 1.6 K/mcL (0.6-4.6); Lymphocytes % 21.1 %; Mean Corpuscular HGB Conc 30.8 g/dL (31.6-35.5); Mean Corpuscular Hemoglobin 27.3 pg (28.0-33.3); Mean Corpuscular Volume 88.8 fL (83.0-100.0); Mean Platelet Volume 10.2 fL (9.4-12.4); Monocytes # 0.5 K/mcL (0.0-1.3); Monocytes % 6.6 %; Neutrophils # 5.2 K/mcL (1.6-8.9); Nucleated Red Blood Cells 2.1 /100 WBC (0); Platelet Count 240 K/mcL (140-400); Red Blood Count 3.66 M/mcL (3.82-4.97); Red Cell Distribution Width 16.4 % (11.5-14.5); Segmented Neutrophils % 66.8 %
[2017-12-12 09:05] LABS: Calcium 9.1 mg/dL (8.6-10.3); Potassium 4.5 mEq/L (3.5-5.1)
--- NOTE | 2017-12-12 09:13 | Cardiology Consult Note ---
Date of Encounter: 12/12/17 Time of Encounter: 09:10 Assessment and Plan (1) Chest pain Current Visit: No Status: Acute Atypical chest pain with history of SVG to RCA and stents to the obtuse marginal. Inferior lateral reversible ischemia on stress test was preserved ejection fraction of 70%. Risks benefits and alternatives were discussed with the patient in regards to left heart cast and she has agreed to proceed. She will have dialysis on Wednesday and left heart would likely be after her dialysis. She has a history of G.I. bleed however no recent episodes and continues on aspirin and Plavix. Qualifiers: Chest pain type: unspecified Qualified Code(s): R07.9 - Chest pain, unspecified Discussion w patient/family: The assessment and plan as outlined above was discussed with the patient and/or family members who expressed understanding and agreement. All questions were answered. Thank you for involving us in the care of your patient. Please call with any questions. History of Present Illness Consult date: 12/12/17 Consult reason: abormal stress test Chief complaint: chest pain History of present illness: Ms. Riley is a 62 year old female with history of coronary artery disease, CVA , Gerd, G.I. bleed in the past, schizophrenia presents with chest pain. Initially seen by internal medicine and a stress test showed infero lateral ischemia with the preserved ejection fraction of 70%. She continues to have atypical chest pain retro sternal with no specific aggravating or relieving factors and the associated symptoms. Her last heart was October 2016 within SVG to the RCA patent and patent stands in the obtuse marginal. There was nonobstructive disease in the mid-LAD noted. Past Med Surg Social Fam HX - Past Medical History Medical history: COPD, coronary artery disease, CVA, DVT, dialysis, GERD, GI bleed, hyperlipidemia, hypertension, peripheral artery disease, other Psychiatric history: anxiety, depression, schizophrenia, previous psychiatric hospitalization, other - Past Surgical History Surgical History: angioplasty/stent, appendectomy, cholecystectomy, coronary bypass (CABG), hysterectomy, knee replacement, other, IVC filter - Social History Smoking Status: Current every day smoker Smokeless Tobacco Status: No Alcohol use: none Drug use: none - Family History Father Family Member Ethnicity: Non- Living Status: Hx Family Cardiac Disorders: Yes (CAD, CT) Hx Family Cancer: Yes (Polycythemia) Hx Family Endocrine Disorder: Yes (DM) Mother Family Member Ethnicity: Non- Living Status: Still Living Hx Family Respiratory Disorders: Yes (End stage COPD) Brother Family Member Ethnicity: Non- Living Status: Still Living Sister Adopted: No Family Member Ethnicity: Non- Living Status: Still Living Hx Family Cardiac Disorders: No Hx Family Respiratory Disorders: No Hx Family Cancer: No Hx Family GI Disorders: No Hx Family Endocrine Disorder: No Hx Family Neuromuscular Disorders: No Hx Family Neurologic Disorders: No Hx Family HEENT Disorders: No Hx Family Autoimmune Disorders: No Medications and Allergies Clopidogrel [Plavix] 75 mg PO DAILY 05/11/15 [History] Omeprazole [PriLOSEC] 20 mg PO BID 05/11/15 [History] Colestipol HCl [Colestid] 1 gm PO BID 06/12/15 [History] Carvedilol 12.5 mg PO BID 10/28/15 [History] Calcium Acetate [Phos-LO] 1,334 mg PO TIDWM 09/06/16 [History] Folic Acid/Vit Bcomp,C [Renal Vitamin Tablet] 0.8 mg PO DAILY 04/15/17 [History] ARIPiprazole [Abilify] 10 mg PO DAILY 09/13/17 [History] Aspirin Enteric Coated [Aspirin EC] 81 mg PO DAILY 09/13/17 [History] Budesonide/Formoterol 160/4.5 [Symbicort 160/4.5] 2 puff IH BIDR 09/13/17 [ History] Cholecalciferol (Vitamin D3) [Vitamin D3] 50,000 unit PO TH 09/13/17 [History] Lidocaine/Prilocaine CREAM [Emla] 1 appl TP AD PRN 09/13/17 [History] OxyCODONE/APAP 10/325 [Percocet 10/325 MG] 1 tab PO Q6H PRN 09/13/17 [History] Oxygen 2 l NS AD 09/13/17 [History] Sennosides [Senna] 8.6 mg PO BID 09/13/17 [History] Sevelamer [Renvela] 800 mg PO TIDWM 09/13/17 [History] Albuterol Neb [AccuNeb] 0.63 mg IH Q6H PRN 10/18/17 [History] Gabapentin [Neurontin] 100 mg PO TID #60 capsule 10/21/17 [Rx] Rosuvastatin [Crestor] 10 mg PO HS #15 tablet 10/21/17 [Rx] Docusate Sodium [Colace] 100 mg PO BID #60 capsule 10/26/17 [Rx] metOLazone [Zaroxolyn] 2.5 mg PO DAILY 10/26/17 [History] Collagenase Oint [Santyl] 1 appl TP AD 11/11/17 [History] Oxybutynin [Ditropan] 5 mg PO TID 11/11/17 [History] Isosorbide MONOnitrate (24 HR) [Imdur] 30 mg PO DAILY #30 tab.er.24h 11/19/17 [ Rx] amLODIPine [Norvasc] 10 mg PO DAILY #30 tablet 11/19/17 [Rx] Insulin LISPRO [Humalog Kwikpen U-100] 35 unit SQ ACHS 11/25/17 [History] Linezolid [Zyvox] 600 mg PO BID #10 tablet 12/03/17 [Rx] Insulin DETEMIR [Levemir] 5 unit SQ BID 30 Days #1 [id number] 12/07/17 [Rx] Parenteral Amino Acid 20% No.1 [Prosol] 12/10/17 [History] 3 Allergy/AdvReac Type Severity Reaction Status Date / Time No Known Allergies Allergy Verified 11/24/17 09:01 All Systems Review: The remainder of the systems were reviewed and are negative Physical Examination Vital Signs, Last 4 Hours Temp Pulse Resp BP Pulse Ox 12/12/17 07:59 16 100 12/12/17 07:19 98.0 F 83 18 121/71 100 12/12/17 05:12 98.3 F 80 16 157/71 98 General: Conversant, No Apparent Distress HEENT: Atraumatic, Normocephaly, Mucus Membranes Moist Neck: No JVD, Normal carotid pulses Cardiac: Reg Rate and Rhythm, Normal S1 and S2, No Murmur Lungs: Normal Breath Sounds, No Wheeze, Rales, Rhonchi Neuro: Alert and responsive, No focal deficits noted Abdomen: Soft, Non-Tender Skin: No rashes noted on visualized skin Musculoskeletal: No Chest Wall Tenderness Extremities: No Clubbing, No Cyanosis, No Edema, Normal Pulses Results 12/12/17 08:17 12/12/17 08:17 Lab Results 12/11/17 12/11/17 12/11/17 12:45 12:45 18:10 WBC 10.6 Hgb 9.8 L Hct 31.9 L Plt Count 231 INR 1.1 APTT 33.3 Sodium Potassium Chloride Carbon Dioxide BUN Creatinine Glucose Calcium Troponin I < 0.03 12/11/17 12/12/17 12/12/17 20:06 04:03 08:17 WBC 7.7 Hgb 10.0 L Hct 32.5 L Plt Count 240 INR APTT 214.3 H* D 33.9 D Sodium Potassium Chloride Carbon Dioxide BUN Creatinine Glucose Calcium Troponin I 12/12/17 08:17 WBC Hgb Hct Plt Count INR APTT Sodium 130 L Potassium 4.5 Chloride 96 L Carbon Dioxide 25 BUN 30 H Creatinine 2.83 H Glucose 297 H Calcium 9.1 Troponin I Consult Discharge Plan - Plan Referrals: Tristen Quintana MD [Primary Care Provider] -
--- NOTE | 2017-12-12 10:19 | Event Note ---
Date of Encounter: 12/12/17 Time of Encounter: 10:18 Nephrology Chart Review Biochemically, she has no hyperkalemia, and so I do not recommend extra HD today (Wednesday). Plan for next HD tomorrow (Wednesday) as per her routine ESRD M/W/ F. Thank you.
[2017-12-12] MEDS: Insulin DETEMIR 100 UNIT/ML X5UNITS SQ SCH ×2 (10:58→21:16)
[2017-12-12] MEDS: *HR* OxyCODONE/APAP 10/325 TABLET PO PRN (11:07)
[2017-12-12] MEDS: Gabapentin 100 MG CAPSULE PO SCH ×3 (12:03→21:06)
[2017-12-12] MEDS ORDERED: Nitroglycerin 0.4 MG TAB.SUBL SL PRN (13:06)
--- NOTE | 2017-12-12 19:33 | Internal Med Progress Note ---
Date of Encounter: 12/13/17 Time of Encounter: 11:00 - Assessment and plan (1) Chest pain Current Visit: Yes Status: Acute Assessment and plan: Patient with intermittent chest pain throughout the day Nuclear medicine stress tests revealed small size, moderate intensity, reversible inferior lateral defect consistent with ischemia Cardiology has been consulted with recommendations for left heart catheterization on 12/13/17 Will give patient sublingual nitroglycerin as needed Qualifiers: Chest pain type: unspecified Qualified Code(s): R07.9 - Chest pain, unspecified (2) ESRD (end stage renal disease) Current Visit: Yes Status: Chronic Assessment and plan: Nephrology consulted for hemodialysis management (3) CAD (coronary artery disease) Current Visit: No Status: Chronic Assessment and plan: ACS rule out as above; continue home meds addition to heparin drip Qualifiers: Coronary Disease-Associated Artery/Lesion type: [place] artery [place] vs. transplanted heart: [place] heart Associated angina: without angina Qualified Code(s): I25.10 - Atherosclerotic heart disease of [place] coronary artery without angina pectoris (4) DMII (diabetes mellitus, type 2) Current Visit: No Status: Acute Assessment and plan: Continue home meds Qualifiers: Diabetes mellitus complication status: with unspecified complications Qualified Code(s): E11.8 - Type 2 diabetes mellitus with unspecified complications; Z79.4 - detention (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 of insulin; Z79.4 - detention ( 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 of insulin; Z79.4 - detention (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 of insulin; 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 (5) DVT prophylaxis Current Visit: No Status: Acute Assessment and plan: On heparin drip - Subjective Interval history: Patient with intermittent chest pain throughout the day Nuclear medicine stress tests revealed small size, moderate intensity, reversible inferior lateral defect consistent with ischemia Discussed with process machine operator with plans for left heart catheterization on 12/13/17 - Constitutional Vitals: Temp Pulse Resp BP Pulse Ox 97.8 F 75 17 137/66 100 12/12/17 16:22 12/12/17 16:22 12/12/17 16:22 12/12/17 16:22 12/12/17 16:22 General appearance: Present: mild distress, A&O X 3 - Respiratory Respiratory exam: Present: CTAB. Absent: accessory muscle use, rales, rhonchi, wheezes - Cardiovascular Cardiovascular exam: Present: RRR, +S1, +S2. Absent: diastolic murmur, gallop, rubs, systolic murmur Internal Medicine: Result - Labs CBC & Chem 7: 12/12/17 08:17 12/13/17 06:33 Labs: Short CBC 12/12/17 Range/Units 08:17 WBC 7.7 (4.3-11.1) K/mcL Hgb 10.0 L (11.5-15.4) g/dL Hct 32.5 L (35.3-44.9) % Plt Count 240 (140-400) K/mcL Neutrophils # 5.2 (1.6-8.9) K/mcL BMP 12/12/17 08:17 Sodium 130 L Potassium 4.5 Chloride 96 L Carbon Dioxide 25 BUN 30 H Creatinine 2.83 H Glucose 297 H Calcium 9.1 - ABG Interpretation ABG results: PT/INR, D-dimer PT 12.2 Seconds (9.4-12.1) H 12/11/17 12:45 Consult Discharge Plan - Plan Referrals: Tristen Quintana MD [Primary Care Provider] -
[2017-12-12] MEDS: Heparin 25,000 UNIT/500 ML D5W 25,000 UNIT/500 ML BAG IVC SCH (20:56)
[2017-12-13] MEDS: *HR* Heparin 5,000 UNIT/ML VIAL IVP PRN (00:07)
[2017-12-13] MEDS ORDERED: 0.9 % Sodium Chloride 250 ML IVC PRN (07:14)
[2017-12-13] MEDS ORDERED: 0.9 % Sodium Chloride 1,000 ML ONE ×3 (07:45→13:31)
[2017-12-13 07:50] LABS: Calcium 8.8 mg/dL (8.6-10.3)
[2017-12-13 08:22] LABS: Basophils # 0.1 K/mcL (0.0-0.2); Eosinophils # 0.3 K/mcL (0.0-0.6); Hematocrit 29.7 % (35.3-44.9); Hemoglobin 9.2 g/dL (11.5-15.4); Immature Granulocytes % 1.3 % (0-4); Lymphocytes # 1.2 K/mcL (0.6-4.6); Lymphocytes % 14.3 %; Mean Corpuscular Hemoglobin 27.5 pg (28.0-33.3); Mean Corpuscular Volume 88.9 fL (83.0-100.0); Mean Platelet Volume 10.2 fL (9.4-12.4); Monocytes # 0.5 K/mcL (0.0-1.3); Monocytes % 6.2 %; Neutrophils # 6.2 K/mcL (1.6-8.9); Platelet Count 219 K/mcL (140-400); Red Blood Count 3.34 M/mcL (3.82-4.97); Red Cell Distribution Width 16.4 % (11.5-14.5); Segmented Neutrophils % 74.2 %
[2017-12-13] MEDS: Aspirin Enteric Coated 81 MG Tablet PO SCH (08:57)
[2017-12-13] MEDS: metOLazone 2.5 MG TABLET PO SCH (08:57)
[2017-12-13] MEDS: ARIPiprazole 10 MG TABLET PO SCH (08:57)
[2017-12-13] MEDS: Insulin DETEMIR 100 UNIT/ML X5UNITS SQ SCH ×2 (08:58→22:48)
[2017-12-13] MEDS: Gabapentin 100 MG CAPSULE PO SCH ×3 (08:58→22:48)
[2017-12-13] MEDS: Calcium Acetate 667 MG CAPSULE PO SCH ×3 (08:58→17:12)
[2017-12-13] MEDS: Sennosides 8.6 MG TABLET PO SCH ×2 (08:58→22:48)
[2017-12-13] MEDS: Renal Vitamin 1 MG CAPSULE PO SCH (08:58)
[2017-12-13] MEDS: Insulin LISPRO 300 UNITS/3 ML VIAL SQ SCH ×4 (09:11→22:49)
[2017-12-13] MEDS ORDERED: *HR* Heparin 5,000 UNIT/ML VIAL ONE (09:12)
--- NOTE | 2017-12-13 09:44 | Nephrology Progress Note ---
Date of Encounter: 12/13/17 Time of Encounter: 09:00 - Assessment and Plan (1) ESRD (end stage renal disease) Current Visit: Yes Status: Chronic HD today (2) DMII (diabetes mellitus, type 2) Current Visit: No Status: Chronic As per primary Qualifiers: Diabetes mellitus complication status: with unspecified complications Qualified Code(s): E11.8 - Type 2 diabetes mellitus with unspecified complications; Z79.4 - [facility] (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 of insulin; Z79.4 - roasterman ( 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 of insulin; Z79.4 - [facility] (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 of insulin; Z79.4 - roasterman (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 of insulin (3) Hyponatremia Current Visit: No Status: Acute Periodic hyponatremia noted in her lab hx most likely d/t her ESRD and mildly hypervolemic volume status. Counseled her on the importance of avoid XS water and Na intake. (4) Anemia of chronic disease Current Visit: No Status: Chronic Goal Hgb is 10-11 in the setting of ESRD. Will provide KAITLIN as needed. Subjective Principal diagnosis: ESRD Interval history: The pt was s/e while on HD. She did not affirm N/V/D or cramping while on HD. She has been seen by Olivia Wall and is being prepped for a [facility]. Objective - Vital Signs Vital signs: Intake and Output 12/12/17 12/13/17 12/13/17 23:59 07:59 15:59 Intake Total 50 / 50 Balance 50 / 50 Intake: IV Fluids 50 / 50 Heparin 25,000 UNIT/500 ML D5W 50 / 50 25,000 unit In 500 ml @ 9.7 UNIT/KG/HR 20.079 mls/hr IVC . Q24H [facility] Rx#:[id number] - General Appearance Exam: General appearance: well-developed, appears started age EENT: ATNC, PERRL, mucous membranes moist Respiratory: clear Cardiology: edema (trace to 1+ pretibial pitting edema b/l), regular rate, regular rhythm, normal S1, normal S2 - Dialysis Access Dialysis Vascular Access: Venous Catheter Gastrointestinal: normoactive bowel sounds, no tenderness, no guarding, obese Integumentary: warm and dry Neurologic: alert and oriented x3 Musculoskeletal: no cyanosis, no clubbing - Lab 12/14/17 05:17 12/14/17 05:17 Most recent lab results Calcium 8.8 mg/dL (8.6-10.3) 12/13/17 06:33 Magnesium 1.8 mg/dL (1.6-2.6) 12/11/17 00:44 Consult Discharge Plan - Plan Referrals: Tristen Quintana MD [Primary Care Provider] -
[2017-12-13] MEDS: Budesonide/Formoterol 160/4.5 MDI IH SCH ×2 (10:38→20:21)
[2017-12-13] MEDS ORDERED: ISOVUE-370 200 ML INFUS..BTL IV ONE (12:45)
[2017-12-13] MEDS ORDERED: *HR* Heparin 10,000 UNIT/10 ML VIAL ONE (12:45)
[2017-12-13] MEDS ORDERED: Nitroglycerin 1,000 MCG/10 ML VIAL IV ONE (12:45)
[2017-12-13] MEDS ORDERED: Heparin 1,000 UNITS/500 mL 500 ML ONE (12:45)
[2017-12-13] MEDS ORDERED: *HR* FentaNYL (PF) 100 MCG/2 ML VIAL ONE (13:36)
[2017-12-13] MEDS ORDERED: *HR* Midazolam HCl 2 MG/2 ML VIAL ONE (13:36)
--- NOTE | 2017-12-13 13:45 | Pre-Sedation Evaluation ---
Pre-sedation evaluation - Pre-sedation checklist Date of procedure: 12/13/17 Procedure: C Recent Vitals: Last Vital Signs Temp 97.9 F 12/13/17 09:00 Pulse 90 12/13/17 08:23 Resp 17 12/13/17 10:45 BP 113/69 12/13/17 10:45 Pulse Ox 96 12/13/17 10:45 H&P (including ROS) documented in medical record: Yes Previous reaction to sedatives/anesthetics: No Dietary Status: NPO after Midnight Dentition: No loose teeth or bridges, dentures removed ASA Classification *see protocol: CLASS II-Mild systemic disease Plan of Care: Pt appropriate candidate for procedure/moderate/conscious sedation
[2017-12-13] MEDS: amLODIPine 5 MG TABLET PO SCH (15:29)
[2017-12-13] MEDS: Isosorbide MONOnitrate (24 HR) 30 MG TAB.ER.24H PO SCH (15:30)
--- NOTE | 2017-12-13 17:31 | Internal Med Progress Note ---
Date of Encounter: 12/13/17 Time of Encounter: 11:00 - Assessment and plan (1) Chest pain Current Visit: Yes Status: Acute Assessment and plan: Patient's chest pain now resolved Nuclear medicine stress tests revealed small size, moderate intensity, reversible inferior lateral defect consistent with ischemia Cardiology has been consulted with recommendations for left heart catheterization on 12/13/17 after hemodialysis Qualifiers: Chest pain type: unspecified Qualified Code(s): R07.9 - Chest pain, unspecified (2) ESRD (end stage renal disease) Current Visit: Yes Status: Chronic Assessment and plan: Patient to go to hemodialysis today; managed by nephrology (3) CAD (coronary artery disease) Current Visit: No Status: Chronic Assessment and plan: ACS rule out as above; continue home meds addition to heparin drip Qualifiers: Coronary Disease-Associated Artery/Lesion type: [place] artery [place] vs. transplanted heart: [place] heart Associated angina: without angina Qualified Code(s): I25.10 - Atherosclerotic heart disease of [place] coronary artery without angina pectoris (4) DMII (diabetes mellitus, type 2) Current Visit: No Status: Acute Assessment and plan: Continue home meds Qualifiers: Diabetes mellitus complication status: with unspecified complications Qualified Code(s): E11.8 - Type 2 diabetes mellitus with unspecified complications; Z79.4 - intermodal dispatcher (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 of insulin; Z79.4 - intermodal dispatcher ( 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 of insulin; Z79.4 - [facility] (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 of insulin; Z79.4 - [facility] (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 of insulin (5) DVT prophylaxis Current Visit: No Status: Acute Assessment and plan: On heparin drip - Subjective Interval history: Patient no longer with chest pain Nuclear medicine stress tests revealed small size, moderate intensity, reversible inferior lateral defect consistent with ischemia Plans for hemodialysis and then for a left heart catheterization on 12/13/17 - Constitutional Vitals: Temp Pulse Resp BP Pulse Ox 98 F 92 16 126/72 98 12/13/17 15:00 12/13/17 15:30 12/13/17 15:15 12/13/17 15:46 12/13/17 15:15 General appearance: Present: mild distress, A&O X 3, no acute distress - Respiratory Respiratory exam: Present: CTAB. Absent: accessory muscle use, rales, rhonchi, wheezes - Cardiovascular Cardiovascular exam: Present: RRR, +S1, +S2. Absent: diastolic murmur, gallop, rubs, systolic murmur Internal Medicine: Result - Labs CBC & Chem 7: 12/13/17 06:33 12/13/17 06:33 - ABG Interpretation ABG results: PT/INR, D-dimer PT 12.2 Seconds (9.4-12.1) H 12/11/17 12:45 Consult Discharge Plan - Plan Referrals: Tristen Quintana MD [Primary Care Provider] -
[2017-12-14] MEDS: *HR* OxyCODONE/APAP 10/325 TABLET PO PRN (06:07)
[2017-12-14 06:12] LABS: Basophils # 0.1 K/mcL (0.0-0.2); Basophils % 0.8 %; Eosinophils # 0.1 K/mcL (0.0-0.6); Hematocrit 28.3 % (35.3-44.9); Hemoglobin 8.8 g/dL (11.5-15.4); Immature Granulocytes % 1.8 % (0-4); Lymphocytes # 1.4 K/mcL (0.6-4.6); Mean Corpuscular HGB Conc 31.1 g/dL (31.6-35.5); Mean Corpuscular Hemoglobin 27.9 pg (28.0-33.3); Mean Corpuscular Volume 89.8 fL (83.0-100.0); Mean Platelet Volume 10.3 fL (9.4-12.4); Monocytes # 0.6 K/mcL (0.0-1.3); Monocytes % 8.5 %; Neutrophils # 4.8 K/mcL (1.6-8.9); Nucleated Red Blood Cells 0.3 /100 WBC (0); Platelet Count 210 K/mcL (140-400); Red Blood Count 3.15 M/mcL (3.82-4.97); Red Cell Distribution Width 16.5 % (11.5-14.5); Segmented Neutrophils % 67.9 %
[2017-12-14 06:24] LABS: Calcium 8.8 mg/dL (8.6-10.3); Potassium 4.4 mEq/L (3.5-5.1)
[2017-12-14] MEDS ORDERED: Darbepoetin 100 MCG/0.5 ML SYRINGE SQ SCH (07:30)
--- NOTE | 2017-12-14 07:45 | Invasive Diagnostic Lab Proc ---
Name: Lynnette Riley Date of Study: 12/13/2017 Date: 1955 Ht: 66.9in Medical Record#: [id number] Age: 62 Wt: 242.51lb Gender: Female BSA: 2.19 Order #: [id number] BMI: 38.06 Physicians Procedure Physician: Michelle French MD Referring MD: Referring MD: Staff Name Position Time In Riddhi Suarez RT (R) Scrub 01:32 PM Chloe Manleyn RT (R) Monitor 01:32 PM William Hartman RN Geriatric Aide 01:32 PM Jazz Hunter RN Nurse 01:32 PM Indications Indication Abnormal Test - Stress Procedures Performed Procedure L HRT ART/GRFT ANGIO Pre-Procedure Checklist Informed consent is complete signed and on chart. H&P is on chart. ID band is on and ID verified with patient. Patient NPO for procedure The procedure was described for the patient and questions were answered. ECG is on chart. Plan of Care Patient will tolerate the procedure without complications. Adequate level of comfort will be maintained. Hemodynamics will remain stable Patient will recover from procedure without complications. Respiratory function will be maintained. Cardiac rhythm will remain stable. Patient temperature will be maintained. Patient and/or family have verbalized understanding of the procedure. Patient Education Chief Complaint/Reason for Test: Cardiac Cath Developmental Category: Adult (18-64 years) Developmentally Appropriate for Age: Yes Learning Barriers: None Education Needs: Procedure Education Method: Verbal Information Taught: Cardiac Cath Educational Evaluation: Able to repeat information Intravenous Access Time IV Size Location DC'd Fluid/Drip Rate Units RN 18g 1 1/4" Patent On Arrival Rt Arm 0.9NaCl ml/hr 22g 1" Patent On Arrival Allergies atorvastatin No Known Allergies Vital Signs Time BP (mmHg) HR (bpm) O2 Sat. RR (bpm) LOC 01:42 PM / % 4 = Oriented but drowsy 01:42 PM / % 4 = Oriented but drowsy 01:57 PM / % 5 = Fully awake and oriented or at pre-proc level 01:35 PM 146 / 61 86 100 % 15 01:38 PM 166 / 73 87 100 % 16 01:42 PM 152 / 68 85 100 % 31 01:48 PM 149 / 67 86 100 % 22 01:52 PM 157 / 73 88 100 % 17 01:58 PM 152 / 64 85 100 % 15 02:03 PM 152 / 70 86 100 % 22 02:08 PM 154 / 66 106 100 % 02:13 PM 159 / 71 84 100 % 02:18 PM 158 / 72 86 100 % 02:12 PM / % 5 = Fully awake and oriented or at pre-proc level Procedural Medications Time Medication Dose Units Method Given By 01:36 PM Oxygen 2 L/min nasal cannula Jazz Hunter RN 01:37 PM Versed 1 mg Intravenous Jazz Hunter RN 01:37 PM Fentanyl 50 mcg Intravenous Jazz Hunter RN 01:48 PM Lidocaine 2% 10 ml Subcutaneous Michelle French MD ASA Classification: CLASS II- Mild systemic disease (i.e. well-controlled diabetes, hypertension, asthma, cigarette smoking) Shalom Score Preprocedure Postprocedure Activity 2- Moves 4 extremities sustained head lift Activity 2- Moves 4 extremities sustained head lift Circulation 2- SBP +/= 20 points of pre-anesthetic level Circulation 2- SBP +/= 20 points of pre-anesthetic level Consciousness 2- Awake and alert oriented x 3 Consciousness 2- Awake and alert oriented x 3 O2 Saturation 2- Able to maintain O2 satruation of 92% on room air O2 Saturation 2- Able to maintain O2 satruation of 92% on room air Respiratory 2- Able to deep breathe and cough well Respiratory 2- Able to deep breathe and cough well Total Score 10 Total Score 10 Contrast Agent: Isovue Diagnostic Contrast: 69 ml Total Contrast: 69 ml Fluoro Dose: 357 mGy Activated Clotting Time Time Seconds to Clot 02:09 PM 127 Procedure Log Time Note Enter By 12:52 PM CathStat 01:27 PM Pt arrived to medical laboratory manager 2 at 13:27 :27 PM Patient charges- Angio tray pack, Navilyst 3mm J, Pulse Oximetry and ACIST tubing and transducer :27 PM IV Supplies used: J loop Angio Cath. 01:32 PM Riddhi Suarez RT (R) Position: Scrub Time in: 13:32 :32 PM Emelia Manley RT (R) Position: Monitor Time in: 13:32 :32 PM William Hartman RN Position: Geriatric Aide Time in: :32 :32 PM Soummers, Jazz RN Position: Nurse Time in: 13::32 PM Case Delayed No PM Physician arrived : PM Meet and greet completed PM Sign in performed according to hospital policy. :32 PM Procedure start :32 :34 PM NIBP STAT measurement started. 01:35 PM HR=86 bpm, LFQQ=566/61 mmhg, YoC1=193.0 %, Resp=15 B/min, Comment=NSR :36 PM Hair removed from procedure site in holding area using clippers. Bilateral groin prepped with Chloraprep by Emelia Manley (R), then patient was draped. Skin intact. 37 PM Time: 13:36 Oxygen on at 2 L/min per nasal cannula by Jazz Hunter RN :37 PM Vitals capture started with the following parameters, Patient=Adult, Interval=5 min, Initial Ogwtylrr=345 mmHg, Deflation Rate=5 mmHg, Cuff placed on Right Arm :37 PM Recorded ECG: HR=87 Condition=Condition 1 :37 PM Time: 13:37 Versed 1 mg Intravenous Given by Jazz Hunter RN 37 PM Time: 13:37 Fentanyl 50 mcg Intravenous Given by Jazz Hunter RN :38 PM Clinical Presentation: Unstable angina PM HR=87 bpm, HJBQ=870/73 mmhg, SeR7=399.0 %, Resp=16 B/min, Comment=NSR :42 PM ASA Class CLASS II- Mild systemic disease (i.e. well-controlled diabetes, hypertension, asthma, cigarette smoking) Time: 13:42 Patient comfortable and pain free: Yes 42 PM Time: 13:42LOC: 4 = Oriented but drowsy 42 PM HR=85 bpm, STYM=573/68 mmhg, XvK1=646.0 %, Resp=31 B/min, Comment=NSR 01:44 PM Pressure channel 1 zeroed. 01:47 PM Time out performed according to hospital policy :48 PM HR=86 bpm, RNMI=774/67 mmhg, WjG2=044.0 %, Resp=22 B/min, Comment=NSR 01:48 PM Time: 13:48 10 ml Lidocaine 2% to right groin Subcutaneous Given by Michelle French MD dspell 01:49 PM Micro-Introducer Kit utilized for sheath placement dspellman 01:49 PM Access obtained by percutaneous puncture. 6Fr 10cm Terumo Duson sheath placed in right Femoral artery. [id number] dspellman 01:50 PM Bolus angiogram of right Femoral complete: 4 ml/sec for a total of 7 mls dspellman 01:50 PM Recorded Pressure: RSFA, HR=87, Condition=Condition 1 (Right Superficial Femoral Artery) RSFA 144/53/89 01:51 PM 5Fr FR 4 catheter inserted over the wire DN dspell 01:52 PM 0.035 145cm Navilyst 3mmJ wire [id number] dspellman 01:52 PM Recorded Pressure: Ao, HR=88, Condition=Condition 1 (Aorta) Ao 142/59/92 01:52 PM HR=88 bpm, XQPI=108/73 mmhg, AvQ7=551.0 %, Resp=17 B/min, Comment=NSR 01:53 PM RCA angiography performed in multiple views. dspellman 01:53 PM SVG to the RPDA angio performed in multiple views. dspellman 01:54 PM Lesion found in Mid RCA. Pre Stenosis: 80 Pre NIKUNJ Flow: dspellman 01:54 PM Lesion found in Distal RCA. Pre Stenosis: 100 Pre NIKUNJ Flow: dspellman 01:55 PM Lesion found in SVG to Right PDA. Pre Stenosis: 50 Pre NIKUNJ Flow: dspellman 01:55 PM Catheter removed dspellman 01:55 PM 5Fr FL 4 catheter inserted over the wire DN dspellman 01:56 PM LCA angiography performed in multiple views. dspellman 01:56 PM Recorded Pressure: Ao, HR=87, Condition=Condition 1 (Aorta) Ao 153/54/96 01:57 PM Recorded Pressure: Ao, HR=86, Condition=Condition 1 (Aorta) Ao 130/65/93 01:57 PM Time: 13:42LOC: 4 = Oriented but drowsy dspellman :57 PM Time: 13:42 Patient comfortable and pain free: Yes dspellman 01:57 PM Recorded Pressure: Ao, HR=84, Condition=Condition 1 (Aorta) Ao 138/61/95 01:58 PM HR=85 bpm, ZWHM=316/64 mmhg, MpY0=610.0 %, Resp=15 B/min, Comment=NSR 01:59 PM Catheter removed dspell 01:59 PM Lesion found in Proximal LAD. Pre Stenosis: 60 Pre NIKUNJ Flow: 3: Complete and Brisk Flow/Perfusion dspellman 02:00 PM Lesion found in 1st Diagonal. Pre Stenosis: 25 Pre NIKUNJ Flow: 3: Complete and Brisk Flow/Perfusion dspellman 02:00 PM Lesion found in Distal Circumflex. Pre Stenosis: 40 Pre NIKUNJ Flow: 3: Complete and Brisk Flow/Perfusion dspellman 02:00 PM Recorded Pressure: LV, HR=86, Condition=Condition 1 (Left Ventricle) LV 160/5/9 02:00 PM Recorded Pressure: LV, Ao, HR=86, Condition=Condition 1 (Left Ventricle) LV 158/0/5, (Aorta) Ao 156/58/96 02:02 PM 5Fr Pigtail catheter inserted over the wire [facility] 02:02 PM Catheter selectively placed in left ventricle dspell 02:02 PM Catheter removed ell 02:02 PM physician reviewing images ell 02:02 PM Procedure completed at 14:02 dspell 02:03 PM Did you address NIKUNJ flow and Dominance? Yes 02:03 PM HR=86 bpm, IVXK=608/70 mmhg, CjB6=713.0 %, Resp=22 B/min, Comment=NSR 02:04 PM ACT drawn dspell 02:06 PM Sign out completed: Radiation Dose 356.67 mGy Fluoro Time: 2.9 Isovue 370 - 200ml contrast 69 ml given by Michelle French MD. Complications: NoneCardiac Rehab Consult needed: NoConfirmed administered medications: Yes [facility] 02:07 PM Isovue 370 - 200ml,1 Bottle(s) used. ell 02:07 PM Estimated Blood Loss: minimal dspell 02:07 PM Post ECG NSR dspell 02:07 PM Post Blood Pressure 152/70 dspellman 02:08 PM VT=555 bpm, WVRG=914/66 mmhg, KfG2=575.0 %, Comment=NSR 02:09 PM At 14:09 the ACT was 127 seconds. 02:10 PM Information taught Cardiac Cath dsp 02:10 PM Education needs Procedure, Plan of Care, and Responsibilities of Patient in Care dspell 02:10 PM Learning barriers :None 02:10 PM Education Methods Verbal 02:11 PM Education evaluation Able to repeat information 02:12 PM Delay to floor No dspell:12 PM Family placed in no family available. :12 PM Complications: None :12 PM Fluoro Time: 2.9 :12 PM Isovue 370 - 200ml contrast 69 ml given by Michelle French MD. :12 PM Time: 13:57 Patient comfortable and pain free: Yes :12 PM Time: 13:57LOC: 5 = Fully awake and oriented or at pre-proc level dsp 02:13 PM Radiation Dose 356.67 mGy dsp 02:13 PM HR=84 bpm, RDOZ=344/71 mmhg, EsE4=650.0 %, Comment=NSR 02:18 PM HR=86 bpm, IZTA=991/72 mmhg, BfR2=702.0 %, Comment=NSR 02:21 PM Report given to Susan POWERS Pt taken to 2A Room #71. 14:21 02:25 PM Arterial sheath pulled using manual compression and V+ Pad for 15 minutes by Riddhi Suarez RT (R) 02:27 PM 14:27 Post Pulses Rt DP 2+ dspell:27 PM Time: 14:12 Patient comfortable and pain free: Yes :27 PM Time: 14:12LOC: 5 = Fully awake and oriented or at pre-proc level dspell 02:28 PM 14:27 Post Pulses Lt DP 1+ dspell:28 PM 14:28 Post Pulses Bilateral PT 1+ dspell 02:28 PM Patient out of room: 14:28 dspell Complications Complication None None Hemodynamics Pressures Site Systolic/A Wave Diastolic/V Wave Mean RSFA 144 53 89 AO 142 59 92 AO 153 54 96 AO 130 65 93 AO 138 61 95 LV 160 5 9 LV 158 0 5 AO 156 58 96 Post Procedure Information Blood Pressure: 152/70 mmHg Rhythm: NSR Post procedural instructions were given Closure Device Time Device Success/Fail 12/13/2017 2:24:00 PM Manual Compression Successful Site Checks Time Location Status Staff Sheath In? Note 02:24 PM Rt Groin No bleeding/ No Hematoma Riddhi Suarez RT (R) Pulses Time Site Pre-Procedure Post-Procedure Note Bilateral DP & PT 2+ Bilateral radial 2+ 2:27:00 PM Rt DP 2+ 2:27:00 PM Lt DP 1+ 2:28:00 PM Bilateral PT 1+ Updated by Emelia Manley RT (R) on 12/14/2017 7:37:44 AM RT Heide electronically signed on 12/14/2017 7:39:25 AM with status of Final
[2017-12-14] MEDS: Budesonide/Formoterol 160/4.5 MDI IH SCH (08:05)
--- NOTE | 2017-12-14 08:40 | Electrocardiograph Report ---
[place] [address] Test Date: 2017-12-10 Pat Name: Lynnette Riley Department: 102 Room: 2A71 Gender: Parts Coordinator: Tmmickie : 1955 Requested By: Mir Velez Order Number: [id number] Reading MD: Michelle French Measurements Intervals [place] Rate: 82 P: 68 OR: 196 QRS: 84 QRSD: 93 T: 65 QT: 392 QTc: 431 Interpretive Statements SINUS RHYTHM Nonspecific T abnormalities anterior leads Electronically Signed On 12-14-2017 8:39:10 EST by Michelle French
--- NOTE | 2017-12-14 08:54 | Event Note ---
Date of Encounter: 12/14/17 Time of Encounter: 08:53 - Cardiology Event Note LHC reviewed with no intervention needed. Cardiology will sign off and will follow in outpatient setting. Follow up set.
--- NOTE | 2017-12-14 09:04 | Nephrology Progress Note ---
Date of Encounter: 12/14/17 Time of Encounter: 09:02 - Assessment and Plan (1) ESRD (end stage renal disease) on dialysis Current Visit: No Status: Acute Plan for HD tomorrow Continue renal diet Continue strict I/Os Avoid nephrotoxins if possible (2) Chest pain Current Visit: Yes Status: Acute per cardiology team Heart cath shows no intervention needed Qualifiers: Chest pain type: precordial pain Qualified Code(s): R07.2 - Precordial pain (3) Hyponatremia Current Visit: No Status: Acute Na+ improving 134 today (4) Anemia of chronic disease Current Visit: No Status: Chronic Continue Aranesp Subjective Principal diagnosis: ESRD on dialysis, chest pain Interval history: Patient seen and examined. Sitting up in chair, denies any dyspnea, states she feels pretty good today. Objective - Vital Signs Vital signs: Vital Signs Temp Pulse Resp BP Pulse Ox 12/14/17 08:05 16 94 12/14/17 07:58 98.3 F 93 15 118/69 94 12/14/17 03:46 98.4 F 89 16 157/73 100 12/13/17 23:24 98.8 F 87 16 136/72 99 12/13/17 20:32 99.0 F 90 16 121/70 95 12/13/17 20:21 16 98 12/13/17 15:46 126/72 12/13/17 15:30 92 114/57 12/13/17 15:15 82 16 137/71 98 12/13/17 15:00 98 F 82 16 138/71 99 12/13/17 13:00 97.8 F 18 137/65 12/13/17 12:30 128/54 12/13/17 12:15 122/58 12/13/17 12:00 122/60 12/13/17 11:45 147/64 12/13/17 11:30 150/65 12/13/17 11:15 127/57 12/13/17 11:00 131/58 12/13/17 10:45 17 124/52 96 12/13/17 10:30 123/58 12/13/17 10:15 119/52 12/13/17 10:00 139/56 12/13/17 09:45 136/53 12/13/17 09:30 159/72 12/13/17 09:15 159/69 Intake and Output 12/13/17 12/14/17 12/14/17 23:59 07:59 15:59 Intake Total 240 / 240 Output Total 100 / 100 Balance 240 / 240 -100 / -100 Intake: Oral 240 / 240 Output: Urine 100 / 100 Other: Meal Dinner Percent of Meal Consumed 100% Weight 110.8 kg Blood Glucose* 287 252 Patient Weight 12/14/17 23:59 Weight 110.8 kg - General Appearance General appearance: Present: obese EENT: Present: ATNC, mucous membranes moist, hearing intact, vision intact Neck: Present: supple Respiratory: Present: clear Cardiology: Present: edema, normal S1, normal S2 Dialysis Vascular Access: Arteriovenous Fistula Gastrointestinal: Present: no tenderness, no guarding, obese Integumentary: Present: warm and dry Neurologic: Present: alert and oriented x3 Psychiatric: Present: mood/affect appropriate, cooperative - Lab 12/14/17 05:17 12/14/17 05:17 Most recent lab results Calcium 8.8 mg/dL (8.6-10.3) 12/14/17 05:17 Magnesium 1.8 mg/dL (1.6-2.6) 12/11/17 00:44 Consult Discharge Plan - Plan Referrals: Tristen Quintana MD [Primary Care Provider] -
[2017-12-14] MEDS: amLODIPine 5 MG TABLET PO SCH (09:42)
[2017-12-14] MEDS: Sennosides 8.6 MG TABLET PO SCH (09:42)
[2017-12-14] MEDS: Aspirin Enteric Coated 81 MG Tablet PO SCH (09:42)
[2017-12-14] MEDS: Gabapentin 100 MG CAPSULE PO SCH ×2 (09:42→16:21)
[2017-12-14] MEDS: metOLazone 2.5 MG TABLET PO SCH (09:42)
[2017-12-14] MEDS: Isosorbide MONOnitrate (24 HR) 30 MG TAB.ER.24H PO SCH (09:42)
[2017-12-14] MEDS: Insulin DETEMIR 100 UNIT/ML X5UNITS SQ SCH (09:43)
[2017-12-14] MEDS: ARIPiprazole 10 MG TABLET PO SCH (09:43)
[2017-12-14] MEDS: Renal Vitamin 1 MG CAPSULE PO SCH (09:43)
[2017-12-14] MEDS: Calcium Acetate 667 MG CAPSULE PO SCH ×3 (09:43→16:21)
[2017-12-14] MEDS: Insulin LISPRO 300 UNITS/3 ML VIAL SQ SCH ×3 (09:43→16:21)
[2017-12-14 11:24] VITALS: BP 107/64
--- NOTE | 2017-12-14 14:53 | Discharge Summary ---
Orders not resulted at time of discharge: Pending orders 12/15/17 04:00 BMP [Basic Metabolic Panel] AM 0400 Complete Blood Count [HEME] AM 0400 12/16/17 04:00 BMP [Basic Metabolic Panel] AM 0400 Complete Blood Count [HEME] AM 0400 12/17/17 04:00 BMP [Basic Metabolic Panel] AM 0400 Complete Blood Count [HEME] AM 0400 12/18/17 04:00 BMP [Basic Metabolic Panel] AM 0400 Complete Blood Count [HEME] AM 0400 12/19/17 04:00 BMP [Basic Metabolic Panel] AM 0400 Complete Blood Count [HEME] AM 0400 Date of Encounter: 12/14/17 Time of Encounter: 14:53 - Discharge Diagnosis (1) Unstable angina Priority: Primary Status: Resolved (2) CAD (coronary artery disease) Priority: Primary Status: Chronic Comments: Angina resolved. Qualifiers: Coronary Disease-Associated Artery/Lesion type: council artery [place] vs. transplanted heart: council heart Associated angina: with unstable angina Qualified Code(s): I25.110 - Atherosclerotic heart disease of council coronary artery with unstable angina pectoris (3) DM2 (diabetes mellitus, type 2) Priority: Secondary Status: Chronic Qualifiers: Diabetes mellitus complication status: with kidney complications Diabetes mellitus complication detail: with chronic kidney disease Diabetes mellitus ferry terminal supervisor insulin use: with ferry terminal supervisor use Chronic kidney disease stage: on chronic dialysis Qualified Code(s): E11.22 - Type 2 diabetes mellitus with diabetic chronic kidney disease; N18.6 - End stage renal disease; Z99.2 - Dependence on renal dialysis; Z99.2 - Dependence on renal dialysis; Z99.2 - Dependence on renal dialysis; N18.6 - End stage renal disease; N18.6 - End stage renal disease; N18.6 - End stage renal disease; Z79.4 - ferry terminal supervisor (current ) use of insulin; Z79.4 - ferry terminal supervisor (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 of insulin; Z79.4 - intermediate (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 of insulin; Z79.4 - intermediate (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 of insulin; Z99.2 - Dependence on renal dialysis (4) Anemia Priority: Secondary Status: Suspected Qualifiers: Anemia type: due to chronic kidney disease Chronic kidney disease stage: on chronic dialysis Qualified Code(s): N18.6 - End stage renal disease; D63.1 - Anemia in chronic kidney disease; D63.1 - Anemia in chronic kidney disease; Z99.2 - Dependence on renal dialysis; Z99.2 - Dependence on renal dialysis; Z99.2 - Dependence on renal dialysis; Z99.2 - Dependence on renal dialysis (5) Atrial fibrillation Priority: Secondary Status: Chronic Qualifiers: Atrial fibrillation type: paroxysmal Qualified Code(s): I48.0 - Paroxysmal atrial fibrillation (6) Congestive heart failure Priority: Secondary Status: Chronic Qualifiers: Heart failure type: diastolic Heart failure chronicity: chronic Qualified Code(s): I50.32 - Chronic diastolic (congestive) heart failure (7) HTN (hypertension) Priority: Secondary Status: Chronic Qualifiers: Hypertension type: essential hypertension Qualified Code(s): I10 - Essential (primary) hypertension (8) Venous stasis dermatitis of both lower extremities Priority: Secondary Status: Chronic (9) Tobacco abuse Priority: Secondary Status: Chronic (10) Chronic respiratory failure with hypoxia Priority: Secondary Status: Chronic Hospital course: Ms. Riley is a 62 year old female with hx of CAD and ESRD developed substernal chest discomfort during dialysis. She was evaluated in ED and subsequently admitted. Ms Riley was admitted with unstable angina. She was medically treated and underwent a stress test which showed reversible defect. [facility] went for [facility] on 12/13 and did not have any intervention. Today she feels very well. She has no chest pain and vitals are stable. She feels ready to go home and will be discharged today. Discharge discussed with: patient, nurse Time spent discussing smoking cessation with patient: 3 to 10 minutes - Time Spent with Patient Total time spent providing and/or coordinating discharge services: 41min - Discharge Medications Home Medications: Clopidogrel [Plavix] 75 mg PO DAILY 05/11/15 [History] Omeprazole [PriLOSEC] 20 mg PO BID 05/11/15 [History] Colestipol HCl [Colestid] 1 gm PO BID 06/12/15 [History] Carvedilol 12.5 mg PO BID 10/28/15 [History] Calcium Acetate [Phos-LO] 1,334 mg PO TIDWM 09/06/16 [History] Folic Acid/Vit Bcomp,C [Renal Vitamin Tablet] 0.8 mg PO DAILY 04/15/17 [History] ARIPiprazole [Abilify] 10 mg PO DAILY 09/13/17 [History] Aspirin Enteric Coated [Aspirin EC] 81 mg PO DAILY 09/13/17 [History] Budesonide/Formoterol 160/4.5 [Symbicort 160/4.5] 2 puff IH BIDR 09/13/17 [ History] Cholecalciferol (Vitamin D3) [Vitamin D3] 50,000 unit PO TH 09/13/17 [History] Lidocaine/Prilocaine CREAM [Emla] 1 appl TP AD PRN 09/13/17 [History] OxyCODONE/APAP 10/325 [Percocet 10/325 MG] 1 tab PO Q6H PRN 09/13/17 [History] Oxygen 2 l NS AD 09/13/17 [History] Sennosides [Senna] 8.6 mg PO BID 09/13/17 [History] Sevelamer [Renvela] 800 mg PO TIDWM 09/13/17 [History] Albuterol Neb [AccuNeb] 0.63 mg IH Q6H PRN 10/18/17 [History] Gabapentin [Neurontin] 100 mg PO TID #60 capsule 10/21/17 [Rx] Rosuvastatin [Crestor] 10 mg PO HS #15 tablet 10/21/17 [Rx] Docusate Sodium [Colace] 100 mg PO BID #60 capsule 10/26/17 [Rx] metOLazone [Zaroxolyn] 2.5 mg PO DAILY 10/26/17 [History] Collagenase Oint [Santyl] 1 appl TP AD 11/11/17 [History] Oxybutynin [Ditropan] 5 mg PO TID 11/11/17 [History] Isosorbide MONOnitrate (24 HR) [Imdur] 30 mg PO DAILY #30 tab.er.24h 11/19/17 [ Rx] amLODIPine [Norvasc] 10 mg PO DAILY #30 tablet 11/19/17 [Rx] Insulin LISPRO [Humalog Kwikpen U-100] 35 unit SQ ACHS 11/25/17 [History] Acetaminophen [Tylenol] 650 mg PO Q6HR PRN tablet 12/14/17 [Rx] Insulin DETEMIR [Levemir] 20 unit SQ BID [id number] 12/14/17 [Rx] Allergies/Adverse Reactions: 3 Allergy/AdvReac Type Severity Reaction Status Date / Time No Known Allergies Allergy Verified 11/24/17 09:01 Date of admission: 12/13/17 08:45 Primary care physician: Tristen Quintana MD Consults: Cardiology Discharging clinician: Wilmer Blanco Anticipated date of discharge: 12/14/17 - Constitutional Vitals: Temp Pulse Resp BP Pulse Ox 98.2 F 82 14 107/64 98 12/14/17 11:17 12/14/17 11:17 12/14/17 11:17 12/14/17 11:17 12/14/17 11:17 General appearance: Present: A&O X 3, answers questions appropriately - Head Head exam: Present: normocephalic - Eye Eye exam: Present: EOMI, conjuntiva pink - ENT ENT exam: Present: mucous membranes dry - Respiratory Respiratory exam: Present: decreased breath sounds, CTAB. Absent: rales, rhonchi, wheezes - Cardiovascular Cardiovascular exam: Present: distant heart sounds. Absent: tachycardia - GI/Abdominal GI/Abdominal exam: Present: soft. Absent: tenderness - Extremities Exam Extremities exam: Present: warm. Absent: tenderness Additional comments: Venous stasis changes - Neurological Exam Neurological exam: Present: alert, oriented X3 - Skin Skin exam: Present: dry, warm - Patient Status Disposition: Home Health Service Condition: Fair Functional capacity at discharge: uses cane/walker Overall status at discharge: patient is progressing back to baseline - Discharge Instructions Follow Up With: Tristen Quintana MD [Primary Care Provider] - - Diet and Activity Activity: increase activity as tolerated Diet: advance to your usual diet
--- NOTE | 2017-12-14 15:08 | Physician Discharge Referral ---
Home Health/Hosp Referral Info Transfer to: Home Health Provider in Charge Post Discharge: PCP - Diagnosis (1) Unstable angina Priority: Primary Status: Resolved (2) CAD (coronary artery disease) Priority: Primary Status: Chronic (3) DM2 (diabetes mellitus, type 2) Priority: Secondary Status: Chronic (4) Anemia Priority: Secondary Status: Suspected (5) Atrial fibrillation Status: Chronic (6) Congestive heart failure Priority: Secondary Status: Chronic (7) HTN (hypertension) Priority: Secondary Status: Chronic (8) Venous stasis dermatitis of both lower extremities Priority: Secondary Status: Chronic (9) Tobacco abuse Priority: Secondary Status: Chronic (10) Chronic respiratory failure with hypoxia Priority: Secondary Status: Chronic - Respiratory Orders Oxygen / L per min (2) Smoking Cessation: Smoking cessation has been advised. For more information, call the [place] Tobacco Quit Line at 9-116-OBSI-NOW. - Diet/Nutrition Diet/Nutrition Orders: Renal, No Concentrated Sweets - Activity Activity Orders: Up ad kyle - Services Needed Following services are medically necessary services: Nursing, Home Health Aide, Physical Therapy, Occupational Therapy - Transfer Medications Home Medications: Clopidogrel [Plavix] 75 mg PO DAILY 05/11/15 [History] Omeprazole [PriLOSEC] 20 mg PO BID 05/11/15 [History] Colestipol HCl [Colestid] 1 gm PO BID 06/12/15 [History] Carvedilol 12.5 mg PO BID 10/28/15 [History] Calcium Acetate [Phos-LO] 1,334 mg PO TIDWM 09/06/16 [History] Folic Acid/Vit Bcomp,C [Renal Vitamin Tablet] 0.8 mg PO DAILY 04/15/17 [History] ARIPiprazole [Abilify] 10 mg PO DAILY 09/13/17 [History] Aspirin Enteric Coated [Aspirin EC] 81 mg PO DAILY 09/13/17 [History] Budesonide/Formoterol 160/4.5 [Symbicort 160/4.5] 2 puff IH BIDR 09/13/17 [ History] Cholecalciferol (Vitamin D3) [Vitamin D3] 50,000 unit PO TH 09/13/17 [History] Lidocaine/Prilocaine CREAM [Emla] 1 appl TP AD PRN 09/13/17 [History] OxyCODONE/APAP 10/325 [Percocet 10/325 MG] 1 tab PO Q6H PRN 09/13/17 [History] Oxygen 2 l NS AD 09/13/17 [History] Sennosides [Senna] 8.6 mg PO BID 09/13/17 [History] Sevelamer [Renvela] 800 mg PO TIDWM 09/13/17 [History] Albuterol Neb [AccuNeb] 0.63 mg IH Q6H PRN 10/18/17 [History] Gabapentin [Neurontin] 100 mg PO TID #60 capsule 10/21/17 [Rx] Rosuvastatin [Crestor] 10 mg PO HS #15 tablet 10/21/17 [Rx] Docusate Sodium [Colace] 100 mg PO BID #60 capsule 10/26/17 [Rx] metOLazone [Zaroxolyn] 2.5 mg PO DAILY 10/26/17 [History] Collagenase Oint [Santyl] 1 appl TP AD 11/11/17 [History] Oxybutynin [Ditropan] 5 mg PO TID 11/11/17 [History] Isosorbide MONOnitrate (24 HR) [Imdur] 30 mg PO DAILY #30 tab.er.24h 11/19/17 [ Rx] amLODIPine [Norvasc] 10 mg PO DAILY #30 tablet 11/19/17 [Rx] Insulin LISPRO [Humalog Kwikpen U-100] 35 unit SQ ACHS 11/25/17 [History] Acetaminophen [Tylenol] 650 mg PO Q6HR PRN tablet 12/14/17 [Rx] Insulin DETEMIR [Levemir] 20 unit SQ BID [id number] 12/14/17 [Rx] Allergies/Adverse Reactions: 3 Allergy/AdvReac Type Severity Reaction Status Date / Time No Known Allergies Allergy Verified 11/24/17 09:01 Certification: Further, I certify that my clinical findings support that this patient is homebound (i.e. absences from home require considerable and taxing effort and are for medical reasons or anglican services or infrequently or short duration when for other reasons) because: Homebound Reason: Patient requires assistance of a person or device to safely leave home, Leaving home requires considerable and taxing effort due to condition Attestation: My signature below is to certify that this patient is under my care and that I, or nurse practitioner, or a physician's publisher assistant working with me, has a face-to -face encounter with this patient.
[2017-12-14] MEDS: Heparin 25,000 UNIT/500 ML D5W 25,000 UNIT/500 ML BAG IVC SCH (15:29)
--- NOTE | 2017-12-14 20:03 | Electrocardiograph Report ---
[place] [id number] Test Date: 2017-12-11 Pat Name: Lynnette Riley Department: 112 Room: 2A71 Gender: F Transmission Operator: : [id number] Requested By: Angelo Berkowitz Order Number: [id number] Reading MD: Aliza Walker Measurements Intervals [place] Rate: 80 P: 72 ID: [id number] QRS: 77 QRSD: 89 T: 47 QT: 387 QTc: 424 Interpretive Statements SINUS RHYTHM Electronically Signed On 12-14-2017 20:02:40 EST by Aliza Walker
[2017-12-16] MEDS ORDERED: Cholecalciferol (D-3) 1,000 UNIT TABLET PO SCH (15:07)
== END 2017-12-14 18:20 | disposition home health service (06) | DRG 286 ==
LOC: 2ANU 13:08 → EMEROO 13:08 → 2ANU 14:59 → SUATTDRO 12-13 08:45
PROVIDERS: ADMIT Pediatrics; ATTEND Internal Medicine

== ENCOUNTER 2017-12-22 19:26 | Observation (INO) ==
--- NOTE | 2017-12-22 19:30 | Emergency Department Note ---
Disposition Clinical Impression: Hyperglycemia, Elevated troponin Vomiting Qualifiers: Vomiting type: unspecified Vomiting Intractability: non-intractable Nausea presence: with nausea Qualified Code(s): R11.2 - Nausea with vomiting, unspecified Disposition: Admitted As Inpatient Condition: Good Time of Disposition: 22:22 General Adult HPI - General Chief complaint: ED Abdominal Pain Stated complaint: abd pain/NV/hyperglycemia Time Seen by Provider: 12/22/17 19:29 Nursing Notes Reviewed: Yes Vital Signs Reviewed: Yes - History of Present Illness HPI Narrative: Female patient complaining of her blood sugar being elevated for 2 days. Does report some nausea and vomiting today. Denies abdominal pain. See her insulin as prescribed. Denies increase in sugar intake. - Related Data Home Medications Medication Instructions Recorded Confirmed Clopidogrel [Plavix] 75 mg PO DAILY 05/11/15 12/22/17 Omeprazole [PriLOSEC] 20 mg PO DAILY 05/11/15 12/22/17 Colestipol HCl [Colestid] 1 gm PO BID 06/12/15 12/22/17 Carvedilol 12.5 mg PO BID 10/28/15 12/22/17 Calcium Acetate [Phos-LO] 1,334 mg PO TIDWM 09/06/16 12/22/17 Folic Acid/Vit Bcomp,C [Renal 0.8 mg PO DAILY 04/15/17 12/22/17 Vitamin Tablet] ARIPiprazole [Abilify] 10 mg PO DAILY 09/13/17 12/22/17 Aspirin Enteric Coated [Aspirin EC] 81 mg PO DAILY 09/13/17 12/22/17 Budesonide/Formoterol 160/4.5 2 puff IH BIDR 09/13/17 12/22/17 [Symbicort 160/4.5] Cholecalciferol (Vitamin D3) 50,000 unit PO TH 09/13/17 12/22/17 [Vitamin D3] Lidocaine/Prilocaine CREAM [Emla] 1 appl TP AD PRN 09/13/17 12/22/17 OxyCODONE/APAP 10/325 [Percocet 1 tab PO Q6H PRN 09/13/17 12/22/17 10/325 MG] Oxygen 2 l NS AD 09/13/17 12/22/17 Sennosides [Senna] 8.6 mg PO BID 09/13/17 12/22/17 Sevelamer [Renvela] 800 mg PO TIDWM 09/13/17 12/22/17 Albuterol Neb [AccuNeb] 0.63 mg IH Q6H PRN 10/18/17 12/22/17 metOLazone [Zaroxolyn] 2.5 mg PO DAILY 10/26/17 12/22/17 Collagenase Oint [Santyl] 1 appl TP DAILY 11/11/17 12/22/17 Oxybutynin [Ditropan] 5 mg PO TID 11/11/17 12/22/17 Insulin LISPRO [Humalog Kwikpen 0 unit SQ ACHS 11/25/17 12/22/17 U-100] Amitriptyline HCl 100 mg PO HS 12/22/17 12/22/17 Insulin DETEMIR [Levemir Flextouch] 20 unit SQ BID 12/22/17 12/22/17 Morphine Sulfate SR (12 HR) [MS 30 mg PO Q12HR 12/22/17 12/22/17 Contin] Rosuvastatin [Crestor] 20 mg PO HS 12/22/17 12/22/17 Previous Rx's Medication Instructions Recorded Gabapentin [Neurontin] 100 mg PO TID #60 capsule 10/21/17 Isosorbide MONOnitrate (24 HR) 30 mg PO DAILY #30 tab.er.24h 11/19/17 [Imdur] amLODIPine [Norvasc] 10 mg PO DAILY #30 tablet 11/19/17 Acetaminophen [Tylenol] 650 mg PO Q6HR PRN tablet 12/14/17 Allergies Allergy/AdvReac Type Severity Reaction Status Date / Time No Known Allergies Allergy Verified 11/24/17 09:01 All systems ED: reviewed and negative except as stated. Constitutional: Denies: fever, chills ENT ED: Denies: congestion Cardiovascular: Denies: chest pain, palpitations Respiratory: Denies: cough, dyspnea Gastrointestinal: Reports: nausea, vomiting. Denies: abdominal pain, diarrhea, hematemesis, melena, hematochezia Genitourinary: Denies: urgency, dysuria, frequency Musculoskeletal: Denies: back pain, neck pain Integumentary: Denies: rash Neurological: Denies: headache, weakness Past Medical History - Past Medical History Attestation: Yes The following information was validated with the patient. 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 Absent: tenderness, meningismus - Chest Chest inspection: Present: normal inspection, symmetric chest wall rise. Absent : tenderness - Respiratory Respiratory exam: Present: normal lung sounds bilaterally. Absent: respiratory distress, accessory muscle use - Cardiovascular Cardiovascular exam: Present: regular rate, normal rhythm, normal heart sounds - Abdominal Exam Abdominal exam: Present: soft, Non-Tender, normal bowel sounds. Absent: distention, rigidity, organomegaly - Extremities Exam Extremities exam: Present: normal inspection, full ROM, pedal edema (pitting with skin changes to bilateral lower extremities.). Absent: tenderness - Back Exam Back exam: Present: normal inspection - Neurological Exam Neurological exam: Present: alert, oriented X3 - Psychiatric Psychiatric exam: Present: normal affect - Skin Skin exam: Present: warm, dry, intact, normal color Course Course Narrative: Female patient presenting to the emergency department complaining of high blood sugar. She is a known diabetic. SHe has been taking insulin as directed. She denies any increase in her sugar intake. SHe states that her blood sugar was high yesterday as well. She denies any steroid use recently. She denies any recent illnesses. She does say that she has been nauseated and vomiting today. Patient's abdomen is soft and nontender on exam. Lung sounds are clear. We will get basic lab workup on patient and began administration for her DKA. I anticipate admission. - Reevaluation(s) Reevaluation #1: Patient complaining of a bilateral lower extremity pain that is chronic. We will provide her pain medication while she is here. Time: 20:28 - Consultations Consultation #1: Dr Brice accepted Pt in stable condition. He requested that a BMP be ordered in 2 hours, 10 mEq of potassium be given and 10 units of subcutaneous insulin be given. I have ordered these for him. He will follow up on the BMP. Time: 22:17 Vital Signs Temperature 98.6 F 12/22/17 19:30 Pulse Rate 98 12/22/17 19:30 Respiratory Rate 22 12/22/17 19:30 Blood Pressure 137/59 12/22/17 19:30 O2 Sat by Pulse Oximetry 99 12/22/17 19:30 Temperature 98.6 F 12/22/17 19:30 Pulse Rate 98 12/22/17 22:23 Respiratory Rate 16 12/22/17 22:23 Blood Pressure 139/65 12/22/17 22:23 O2 Sat by Pulse Oximetry 96 12/22/17 22:23 Oxygen Delivery Oxygen Delivery Room Air Medical Decision Making - Medical Records Medical records reviewed: Yes I reviewed the patient's medical records. - Lab Data Lab results reviewed: Yes I reviewed the patient's lab results. Result diagrams: 12/22/17 20:17 12/22/17 20:17 Lab Results 12/22/17 12/22/17 12/22/17 Range/Units 19:32 19:33 20:17 WBC 7.2 (4.3-11.1) K/mcL RBC 3.78 L (3.82-4.97) M/mcL Hgb 10.5 L (11.5-15.4) g/dL Hct 34.1 L (35.3-44.9) % MCV 90.2 (83.0-100.0) fL MCH 27.8 L (28.0-33.3) pg MCHC 30.8 L (31.6-35.5) g/dL RDW 16.5 H (11.5-14.5) % Plt Count 182 (140-400) K/mcL MPV 11.0 (9.4-12.4) fL Immature Gran % 0.6 (0-4) % Seg Neutrophils % 71.9 % Lymphocytes % 17.2 % Monocytes % 7.8 % Eosinophils % 1.7 % Basophils % 0.8 % Neutrophils # 5.2 (1.6-8.9) K/mcL Lymphocytes # 1.2 (0.6-4.6) K/mcL Monocytes # 0.6 (0.0-1.3) K/mcL Eosinophils # 0.1 (0.0-0.6) K/mcL Basophils # 0.1 (0.0-0.2) K/mcL VBG pH (7.32-7.42) pH Units VBG pCO2 (41-51) mmHg VBG pO2 (25-50) mmHg VBG HCO3 (21-27) mEq/L Sodium (136-145) mEq/L Potassium (3.5-5.1) mEq/L Chloride (98-107) mEq/L Carbon Dioxide (23-29) mEq/L BUN (8-23) mg/dL Creatinine (0.60-1.20) mg/dL Est GFR ( Amer) (> 60) Est GFR (Non-Af Amer) (> 60) BUN/Creatinine Ratio (6-26) Glucose (70-105) mg/dL POC Glucose 586 H* > 600 H* (58-89) Calculated Osmolality (280-300) Calcium (8.6-10.3) mg/dL Total Bilirubin (0.3-1.0) mg/dL AST (13-39) Units/L ALT (7-52) Units/L Alkaline Phosphatase (34-104) Units/L Troponin I (< 0.04) ng/mL Serum Total Protein (6.4-8.9) g/dL Albumin (3.5-5.7) g/dL Globulin (2.4-3.5) g/dL Albumin/Globulin Ratio (1.1-2.2) Lipase (11-82) Units/L Beta-Hydroxybutyric Acd (0.02-0.27) mmol/L 12/22/17 12/22/17 12/22/17 Range/Units 20:17 20:17 20:38 WBC (4.3-11.1) K/mcL RBC (3.82-4.97) M/mcL Hgb (11.5-15.4) g/dL Hct (35.3-44.9) % MCV (83.0-100.0) fL MCH (28.0-33.3) pg MCHC (31.6-35.5) g/dL RDW (11.5-14.5) % Plt Count (140-400) K/mcL MPV (9.4-12.4) fL Immature Gran % (0-4) % Seg Neutrophils % % Lymphocytes % % Monocytes % % Eosinophils % % Basophils % % Neutrophils # (1.6-8.9) K/mcL Lymphocytes # (0.6-4.6) K/mcL Monocytes # (0.0-1.3) K/mcL Eosinophils # (0.0-0.6) K/mcL Basophils # (0.0-0.2) K/mcL VBG pH 7.40 (7.32-7.42) pH Units VBG pCO2 45 (41-51) mmHg VBG pO2 101 H (25-50) mmHg VBG HCO3 27 (21-27) mEq/L Sodium 131 L (136-145) mEq/L Potassium 2.9 L (3.5-5.1) mEq/L Chloride 93 L (98-107) mEq/L Carbon Dioxide 26 (23-29) mEq/L BUN 27 H (8-23) mg/dL Creatinine 2.21 H (0.60-1.20) mg/dL Est GFR ( Amer) 27 L (> 60) Est GFR (Non-Af Amer) 22 L (> 60) BUN/Creatinine Ratio 12 (6-26) Glucose 531 H* (70-105) mg/dL POC Glucose (58-89) Calculated Osmolality 301 H (280-300) Calcium 9.2 (8.6-10.3) mg/dL Total Bilirubin 0.4 (0.3-1.0) mg/dL AST 13 (13-39) Units/L ALT 14 (7-52) Units/L Alkaline Phosphatase 185 H (34-104) Units/L Troponin I 0.08 H* (< 0.04) ng/mL Serum Total Protein 7.0 (6.4-8.9) g/dL Albumin 3.3 L (3.5-5.7) g/dL Globulin 3.7 H (2.4-3.5) g/dL Albumin/Globulin Ratio 0.9 L (1.1-2.2) Lipase 14 (11-82) Units/L Beta-Hydroxybutyric Acd 0.13 (0.02-0.27) mmol/L - Radiology Data Radiology results reviewed: Yes I reviewed the patient's radiology results. Chest X-Ray 12/22/17 19:30 IMPRESSION: No acute abnormality. D/ / Noé Oconnor MD / Noé Oconnor MD Interpreting Provider: Noé Oconnor MD Attestation Statement - Attestation Attestation: I examined this patient and my medical decision-making was reviewed with the Resident Physician. I agree with the documented findings, disposition and treatment plan as described except to the extent set forth below. Symptomatic hyperglycemia with hypokalemia. Will cautiously replace potassium as well as correct serum glucose with insulin and IV fluids. Patient has history of end- stage renal disease and is on dialysis I would avoid overhydration or volume overload and/or overcorrection and potassium. Patient be admitted for treatment of symptomatically hyperglycemia. No evidence of diabetic ketoacidosis at this time. Cardiac biomarkers were mildly elevated and will be trended as a patient has renal insufficiency and this appears to be chronic.
[2017-12-22] MEDS ORDERED: Ondansetron 4 MG/2 ML VIAL IVP ONE (19:44)
[2017-12-22] MEDS ORDERED: *HR* OxyCODONE/APAP 5/325 TABLET PO ONE (20:27)
[2017-12-22 20:42] LABS: Basophils # 0.1 K/mcL (0.0-0.2); Basophils % 0.8 %; Eosinophils # 0.1 K/mcL (0.0-0.6); Eosinophils % 1.7 %; Hematocrit 34.1 % (35.3-44.9); Hemoglobin 10.5 g/dL (11.5-15.4); Immature Granulocytes % 0.6 % (0-4); Lymphocytes # 1.2 K/mcL (0.6-4.6); Lymphocytes % 17.2 %; Mean Corpuscular HGB Conc 30.8 g/dL (31.6-35.5); Mean Corpuscular Hemoglobin 27.8 pg (28.0-33.3); Mean Corpuscular Volume 90.2 fL (83.0-100.0); Monocytes # 0.6 K/mcL (0.0-1.3); Monocytes % 7.8 %; Neutrophils # 5.2 K/mcL (1.6-8.9); Platelet Count 182 K/mcL (140-400); Red Blood Count 3.78 M/mcL (3.82-4.97); Red Cell Distribution Width 16.5 % (11.5-14.5); Segmented Neutrophils % 71.9 %
[2017-12-22 20:47] LABS: VBG HCO3 27 mEq/L (21-27); VBG PCO2 45 mmHg (41-51); VBG PO2 101 mmHg (25-50)
[2017-12-22] MEDS: 0.9 % Sodium Chloride 1,000 ML IVC SCH ×3 (20:59→23:44)
[2017-12-22 21:09] LABS: Albumin 3.3 g/dL (3.5-5.7); Albumin/Globulin Ratio 0.9 (1.1-2.2); Bilirubin,Total 0.4 mg/dL (0.3-1.0); Calcium 9.2 mg/dL (8.6-10.3); Globulin 3.7 g/dL (2.4-3.5); Potassium 2.9 mEq/L (3.5-5.1); Troponin I 0.08 ng/mL (< 0.04)
[2017-12-22] MEDS ORDERED: Insulin LISPRO 300 UNITS/3 ML VIAL SQ ONE (22:13)
[2017-12-23 00:59] LABS: Calcium 8.5 mg/dL (8.6-10.3); Potassium 3.3 mEq/L (3.5-5.1)
[2017-12-23] MEDS ORDERED: Insulin DETEMIR 100 UNIT/ML X5UNITS SQ ONE (01:09)
[2017-12-23] MEDS ORDERED: Dextrose Gel 15 GM/37.5 ML TUBE PO PRN ×2 (01:10)
[2017-12-23] MEDS ORDERED: *HR* Dextrose 50 % in Water (Syg) 50 ML SYRINGE IVP PRN (01:10)
[2017-12-23] MEDS ORDERED: D5% in Water 1,000 ML IVC PRN (01:10)
[2017-12-23] MEDS ORDERED: Naloxone 0.4 MG/ML INJ IVP PRN (01:19)
[2017-12-23] MEDS ORDERED: Acetaminophen 325 MG TABLET PO PRN (01:25)
[2017-12-23] MEDS ORDERED: *HR* OxyCODONE/APAP 10/325 TABLET PO PRN (01:25)
[2017-12-23] MEDS: 0.9 % Sodium Chloride 1,000 ML IVC SCH (01:40)
--- NOTE | 2017-12-23 02:05 | Internal Med History&Physical ---
Date of Encounter: 12/22/17 Time of Encounter: 23:00 Assessment and Plan (1) Acute gastritis Current visit: Yes Status: Acute Patient has nausea and vomiting. No diarrhea. No abdominal pain. Physical exam shows abdominal is benign. - Consider acute gastritis, viral versus uremic - Symptoms has improved after being given zofran in ER - Continue symptomatic treatment with Zofran. - Resume her regular diet at the symptoms has improved Qualifiers: Gastritis type: other gastritis Gastritis bleeding: without bleeding Qualified Code(s): K29.00 - Acute gastritis without bleeding (2) Uncontrolled diabetes mellitus Current visit: Yes Status: Acute Improved after treatment. Currently glucose 220. Patient has no AG, ketone negative. - Continue basal and sliding scale insulin - Closely monitor glucose level Qualifiers: Diabetes mellitus type: type 2 Diabetes mellitus intermodal dispatcher insulin use: without intermodal dispatcher use Diabetes mellitus complication status: with kidney complications Diabetes mellitus complication detail: with chronic kidney disease Chronic kidney disease stage: on chronic dialysis Qualified Code(s) : E11.22 - Type 2 diabetes mellitus with diabetic chronic kidney disease; E11.65 - Type 2 diabetes mellitus with hyperglycemia; E11.65 - Type 2 diabetes mellitus with hyperglycemia; E11.65 - Type 2 diabetes mellitus with hyperglycemia; E11.65 - Type 2 diabetes mellitus with hyperglycemia; N18.6 - End stage renal disease; N18.6 - End stage renal disease; N18.6 - End stage renal disease; N18.6 - End stage renal disease; Z99.2 - Dependence on renal dialysis; Z99.2 - Dependence on renal dialysis; Z99.2 - Dependence on renal dialysis; Z99.2 - Dependence on renal dialysis (3) CAD (coronary artery disease) Current visit: No Status: Chronic Patient denies chest pain. Continue home medication aspirin/Plavix/beta vera /statin Qualifiers: Coronary Disease-Associated Artery/Lesion type: [place] artery [place] vs. transplanted heart: eagle heart Associated angina: with unstable angina Qualified Code(s): I25.110 - Atherosclerotic heart disease of eagle coronary artery with unstable angina pectoris (4) COPD (chronic obstructive pulmonary disease) Current visit: No Status: Chronic Stable. No signs of exacerbation. Continue home medications Qualifiers: COPD type: chronic bronchitis Chronic bronchitis type: simple Qualified Code(s): J41.0 - Simple chronic bronchitis (5) ESRD (end stage renal disease) on dialysis Current visit: No Status: Chronic Continue hemodialysis. Will Consul nephrology to arrange hemodialysis (6) Tobacco abuse Current visit: No Status: Chronic Smoking cessation education. Patient does not want nicotine patch. (7) Hypokalemia Current visit: No Status: Resolved Careful potassium supplement considering patient has end-stage renal disease need hemodialysis. Closely monitor potassium level. Internal Medicine - H&P: HPI Chief complaint: nausea and vomiting Admitted From: Home Plans for Post Hospital Care: Home History of present illness: Ms. Riley is a 62 year old female with history of diabetes, hypertension, CAD S /P CABG, COPD, end-stage renal disease on hemodialysis, presented to ER for nausea and vomiting. Patient said symptoms started from this morning, patient has vomited 3 times, vomiting is clear liquid. Patient denies a fever, diarrhea , or shortness of breath. Patient is scheduled to have dialysis today but missed the dialysis because she is sick. Patient checked blood sugar at home, which shows very high. Patient came to ER for further management. In ER, her glucose level is over 600. Lab shows not meet criteria of DKA. Patient was admitted for uncontrolled diabetes. Past Med Surg Social Fam HX - Past Medical History Medical history: COPD, coronary artery disease, CVA, DVT, dialysis, GERD, GI bleed, hyperlipidemia, hypertension, peripheral artery disease, other Psychiatric history: anxiety, depression, schizophrenia, previous psychiatric hospitalization, other - Past Surgical History Surgical History: angioplasty/stent, appendectomy, cholecystectomy, coronary bypass (CABG), hysterectomy, knee replacement, other, IVC filter - Social History Smoking Status: Current every day smoker Smokeless Tobacco Status: No Alcohol use: none Drug use: none - Family History Father Family Member Ethnicity: Non- Living Status: Hx Family Cardiac Disorders: Yes (CAD, [place]) Hx Family Cancer: Yes (Polycythemia) Hx Family Endocrine Disorder: Yes (DM) Mother Family Member Ethnicity: Non- Living Status: Still Living Hx Family Respiratory Disorders: Yes (End stage COPD) Brother Family Member Ethnicity: Non- Living Status: Still Living Sister Adopted: No Family Member Ethnicity: Non- Living Status: Still Living Hx Family Cardiac Disorders: Yes Hx Family Respiratory Disorders: No Hx Family Cancer: No Hx Family GI Disorders: No Hx Family Endocrine Disorder: No Hx Family Neuromuscular Disorders: No Hx Family Neurologic Disorders: No Hx Family HEENT Disorders: No Hx Family Autoimmune Disorders: No Internal Medicine - H&P: Meds Clopidogrel [Plavix] 75 mg PO DAILY 05/11/15 [History] Omeprazole [PriLOSEC] 20 mg PO DAILY 05/11/15 [History] Colestipol HCl [Colestid] 1 gm PO BID 06/12/15 [History] Carvedilol 12.5 mg PO BID 10/28/15 [History] Calcium Acetate [Phos-LO] 1,334 mg PO TIDWM 09/06/16 [History] Folic Acid/Vit Bcomp,C [Renal Vitamin Tablet] 0.8 mg PO DAILY 04/15/17 [History] ARIPiprazole [Abilify] 10 mg PO DAILY 09/13/17 [History] Aspirin Enteric Coated [Aspirin EC] 81 mg PO DAILY 09/13/17 [History] Budesonide/Formoterol 160/4.5 [Symbicort 160/4.5] 2 puff IH BIDR 09/13/17 [ History] Cholecalciferol (Vitamin D3) [Vitamin D3] 50,000 unit PO TH 09/13/17 [History] Lidocaine/Prilocaine CREAM [Emla] 1 appl TP AD PRN 09/13/17 [History] OxyCODONE/APAP 10/325 [Percocet 10/325 MG] 1 tab PO Q6H PRN 09/13/17 [History] Oxygen 2 l NS AD 09/13/17 [History] Sennosides [Senna] 8.6 mg PO BID 09/13/17 [History] Sevelamer [Renvela] 800 mg PO TIDWM 09/13/17 [History] Albuterol Neb [AccuNeb] 0.63 mg IH Q6H PRN 10/18/17 [History] Gabapentin [Neurontin] 100 mg PO TID #60 capsule 10/21/17 [Rx] metOLazone [Zaroxolyn] 2.5 mg PO DAILY 10/26/17 [History] Collagenase Oint [Santyl] 1 appl TP DAILY 11/11/17 [History] Oxybutynin [Ditropan] 5 mg PO TID 11/11/17 [History] Isosorbide MONOnitrate (24 HR) [Imdur] 30 mg PO DAILY #30 tab.er.24h 02/09/18 [ Rx] amLODIPine [Norvasc] 10 mg PO DAILY #30 tablet 11/19/17 [Rx] Insulin LISPRO [Humalog Kwikpen U-100] 0 unit SQ ACHS 11/25/17 [History] Acetaminophen [Tylenol] 650 mg PO Q6HR PRN tablet 12/14/17 [Rx] Amitriptyline HCl 100 mg PO HS 12/22/17 [History] Insulin DETEMIR [Levemir Flextouch] 20 unit SQ BID 12/22/17 [History] Morphine Sulfate SR (12 HR) [MS Contin] 30 mg PO Q12HR 12/22/17 [History] Rosuvastatin [Crestor] 20 mg PO HS 12/22/17 [History] 3 Allergy/AdvReac Type Severity Reaction Status Date / Time No Known Allergies Allergy Verified 11/24/17 09:01 All Systems PM: A 10-system review of systems was performed and is negative for pertinent findings except as documented above in the HPI. - Constitutional Vitals: Temp Pulse Resp BP Pulse Ox 98.1 F 91 18 146/70 95 12/23/17 00:10 12/23/17 00:10 12/23/17 00:10 12/23/17 00:10 12/23/17 00:10 General appearance: Present: A&O X 3, no acute distress, answers questions appropriately - Head Head exam: Present: atraumatic, normocephalic - Eye Eye exam: Present: PERRL, conjuntiva pink, sclera anicteric Pupils: Present: PERRL - Neck Neck exam general surgery: Present: supple, trachea midline. Absent: lymphadenopathy - Respiratory Respiratory exam: Present: CTAB. Absent: accessory muscle use, rales, rhonchi, wheezes - Cardiovascular Cardiovascular exam: Present: RRR, +S1, +S2. Absent: diastolic murmur, gallop, rubs, systolic murmur - GI/Abdominal GI/Abdominal exam: Present: normal bowel sounds, soft, no peritoneal signs. Absent: distended, tenderness - Extremities Exam Extremities exam: Present: warm, radial pulses palpable and symmetrical. Absent : calf tenderness, cyanotic, pedal edema - Neurological Exam Neurological exam: Present: CN II-XII intact, oriented X3, no focal deficits. Absent: pronater drift, facial droop, speech deficit - Skin Skin exam: Present: dry, intact Internal Med - H&P Results - Labs CBC & Chem 7: 12/22/17 20:17 12/23/17 00:37 Labs: BMP 12/23/17 00:37 Sodium 134 L Potassium 3.3 L Chloride 100 Carbon Dioxide 24 BUN 26 H Creatinine 2.06 H Glucose 229 H Calcium 8.5 L
[2017-12-23] MEDS ORDERED: Albuterol Neb 0.63 MG/3 ML VIAL IH PRN (04:00)
[2017-12-23 05:42] LABS: Basophils # 0.1 K/mcL (0.0-0.2); Eosinophils # 0.3 K/mcL (0.0-0.6); Eosinophils % 3.7 %; Hematocrit 32.4 % (35.3-44.9); Hemoglobin 10.3 g/dL (11.5-15.4); Immature Granulocytes % 1.7 % (0-4); Lymphocytes # 1.7 K/mcL (0.6-4.6); Lymphocytes % 20.6 %; Mean Corpuscular HGB Conc 31.8 g/dL (31.6-35.5); Mean Corpuscular Hemoglobin 28.3 pg (28.0-33.3); Mean Platelet Volume 11.6 fL (9.4-12.4); Monocytes # 0.7 K/mcL (0.0-1.3); Monocytes % 8.1 %; Neutrophils # 5.3 K/mcL (1.6-8.9); Nucleated Red Blood Cells 0.5 /100 WBC (0); Platelet Count 163 K/mcL (140-400); Red Blood Count 3.64 M/mcL (3.82-4.97); Red Cell Distribution Width 16.7 % (11.5-14.5); Segmented Neutrophils % 64.9 %
[2017-12-23] MEDS ORDERED: *HR* Morphine Sulfate SR (12 HR) 30 MG TABLET.ER PO SCH (06:00)
[2017-12-23] MEDS: *HR* Heparin 5,000 UNIT/ML VIAL SQ SCH ×2 (06:04→16:57)
[2017-12-23] MEDS: metOLazone 2.5 MG TABLET PO SCH (08:30)
[2017-12-23] MEDS: Insulin LISPRO 300 UNITS/3 ML VIAL SQ SCH ×4 (08:30→22:29)
[2017-12-23] MEDS: Isosorbide MONOnitrate (24 HR) 30 MG TAB.ER.24H PO SCH (08:30)
[2017-12-23] MEDS: Gabapentin 100 MG CAPSULE PO SCH ×3 (08:31→20:02)
[2017-12-23] MEDS: ARIPiprazole 10 MG TABLET PO SCH (08:31)
[2017-12-23] MEDS: amLODIPine 5 MG TABLET PO SCH (08:31)
[2017-12-23] MEDS: Calcium Acetate 667 MG CAPSULE PO SCH ×3 (08:31→16:57)
[2017-12-23] MEDS: Renal Vitamin 1 MG CAPSULE PO SCH (08:31)
[2017-12-23] MEDS: Aspirin Enteric Coated 81 MG Tablet PO SCH (08:31)
[2017-12-23] MEDS: Sennosides 8.6 MG TABLET PO SCH ×2 (08:32→20:03)
[2017-12-23] MEDS ORDERED: (Colestipol Hcl [Colestid] 1 GM) PO SCH (09:00)
[2017-12-23] MEDS ORDERED: Potassium Chloride Elixir 20 MEQ/15 ML UDC PO ONE (09:23)
--- NOTE | 2017-12-23 09:32 | Internal Med Progress Note ---
<AlaniscammyliJohn ng - Last Filed: 12/23/17 17:07> Date of Encounter: 12/23/17 Time of Encounter: 08:20 - Assessment and plan (1) Acute gastritis Current Visit: Yes Status: Acute Assessment and plan: Nausea is improved since yesterday. Last vomiting was last night. She admits to minor abdominal pain in all 4 quadrants. Denies blood in stool. - Consider acute gastritis, viral versus uremic - Zofran when necessary. - Will resume regular diet. Qualifiers: Gastritis type: other gastritis Gastritis bleeding: without bleeding Qualified Code(s): K29.00 - Acute gastritis without bleeding (2) Uncontrolled diabetes mellitus Current Visit: Yes Status: Acute Assessment and plan: Glucoses dropped from 220 to 163 and is controlled. - Continue sliding scale and basal insulin. Qualifiers: Diabetes mellitus type: type 2 Diabetes mellitus [facility] insulin use: without intermediate frame tender use Diabetes mellitus complication status: with kidney complications Diabetes mellitus complication detail: with chronic kidney disease Chronic kidney disease stage: on chronic dialysis Qualified Code(s) : E11.22 - Type 2 diabetes mellitus with diabetic chronic kidney disease; E11.65 - Type 2 diabetes mellitus with hyperglycemia; Z99.2 - Dependence on renal dialysis; Z99.2 - Dependence on renal dialysis; Z99.2 - Dependence on renal dialysis; E11.65 - Type 2 diabetes mellitus with hyperglycemia; E11.65 - Type 2 diabetes mellitus with hyperglycemia; E11.65 - Type 2 diabetes mellitus with hyperglycemia; N18.6 - End stage renal disease; N18.6 - End stage renal disease; N18.6 - End stage renal disease; N18.6 - End stage renal disease; Z99.2 - Dependence on renal dialysis (3) CAD (coronary artery disease) Current Visit: No Status: Chronic Assessment and plan: Patient denies chest pain. Continue home medication aspirin/Plavix/beta vera /statin. Qualifiers: Coronary Disease-Associated Artery/Lesion type: [place] artery [place] vs. transplanted heart: [place] heart Associated angina: with unstable angina Qualified Code(s): I25.110 - Atherosclerotic heart disease of [place] coronary artery with unstable angina pectoris (4) COPD (chronic obstructive pulmonary disease) Current Visit: No Status: Chronic Assessment and plan: Stable. No signs of exacerbation. Continue home medications. Qualifiers: COPD type: chronic bronchitis Chronic bronchitis type: simple Qualified Code(s): J41.0 - Simple chronic bronchitis (5) ESRD (end stage renal disease) on dialysis Current Visit: No Status: Chronic Assessment and plan: Patient scheduled for hemodialysis tomorrow. (6) Tobacco abuse Current Visit: No Status: Chronic (7) Hypokalemia Current Visit: No Status: Resolved Assessment and plan: Potassium level today was at 3.1. Hemodialysis is scheduled for tomorrow. - 20 mEq potassium elixir. (8) DVT prophylaxis Current Visit: No Status: Acute Assessment and plan: - Heparin 5000 units subcutaneously every 12 hours. - Subjective Interval history: Ms. Riley is a 62 year old female with history of diabetes, hypertension, CAD S /P CABG, COPD, end-stage renal disease on hemodialysis, presented to ER for nausea and vomiting. Patient says her nausea is improved today. The last time she vomited was last night and she denies any hematemesis. She says her abdominal pain has improved considerably from an 8 out of 10 to 1 out of 10. Patient has been having bowel movements. She denies any diarrhea. Denies any blood in stool. She says that she has been lightheaded and having some minor headaches and also admits to subjective fever.She denies any dysuria or hematuria.She denies any shortness of breath. Her last hemodialysis was on Wednesday and the next one is scheduled for tomorrow. - Constitutional Vitals: Temp Pulse Resp BP Pulse Ox 97.8 F 102 20 144/76 94 12/23/17 08:19 12/23/17 08:19 12/23/17 08:19 12/23/17 08:19 12/23/17 08:42 General appearance: Present: A&O X 3, no acute distress, answers questions appropriately - Respiratory Respiratory exam: Present: CTAB. Absent: accessory muscle use, rales, rhonchi, wheezes - Cardiovascular Cardiovascular exam: Present: RRR, +S1, +S2. Absent: diastolic murmur, gallop, rubs, systolic murmur - GI/Abdominal GI/Abdominal exam: Present: normal bowel sounds, soft, tenderness (Minor tenderness in 4 quadrants. ). Absent: guarding, rebound - Extremities Exam Extremities exam: Present: full ROM, normal capillary refill, pedal edema (+2 pitting edema bilaterally), warm, radial pulses palpable and symmetrical. Absent: cyanotic - Back Exam Additional comments: Pressure ulcer located on caustics that has been bandaged. Internal Medicine: Result - Labs CBC & Chem 7: 12/23/17 04:49 12/23/17 05:50 Labs: Short CBC 12/23/17 Range/Units 04:49 WBC 8.1 (4.3-11.1) K/mcL Hgb 10.3 L (11.5-15.4) g/dL Hct 32.4 L (35.3-44.9) % Plt Count 163 (140-400) K/mcL Neutrophils # 5.3 (1.6-8.9) K/mcL BMP 12/23/17 00:37 Sodium 134 L Potassium 3.3 L Chloride 100 Carbon Dioxide 24 BUN 26 H Creatinine 2.06 H Glucose 229 H Calcium 8.5 L Consult Discharge Plan - Plan Referrals: Tristen Quintana MD [Primary Care Provider] - (web request sent on 12/23/17) <Papito Stoll T - Last Filed: 12/23/17 17:18> Date of Encounter: 12/23/17 - Constitutional Vitals: Temp Pulse Resp BP Pulse Ox 98.4 F 85 20 119/60 94 12/23/17 15:16 12/23/17 15:16 12/23/17 15:16 12/23/17 15:16 12/23/17 15:16 Internal Medicine: Result - Labs CBC & Chem 7: 12/23/17 04:49 12/23/17 05:50 Labs: Short CBC 12/23/17 Range/Units 04:49 WBC 8.1 (4.3-11.1) K/mcL Hgb 10.3 L (11.5-15.4) g/dL Hct 32.4 L (35.3-44.9) % Plt Count 163 (140-400) K/mcL Neutrophils # 5.3 (1.6-8.9) K/mcL BMP 12/23/17 12/23/17 00:37 05:50 Sodium 134 L 133 L Potassium 3.3 L 3.1 L Chloride 100 99 Carbon Dioxide 24 26 BUN 26 H 26 H Creatinine 2.06 H 2.05 H Glucose 229 H 163 H Calcium 8.5 L 8.6 - Attending Attestation I examined this patient and my medical decision-making was reviewed with the Resident Physician. I agree with the documented findings, disposition and treatment plan as described except to the extent set forth below Seen and examined at the bedside. This time she is readmitted for uncontrolled diabetes and acute gastritis. She also missed hemodialysis. Physical exam is remarkable for chronic venostasis changes on her lower extremities, chest is clear to auscultation bilaterally and her abdomen is benign. Labs and imaging reviewed at baseline. For hemodialysis as scheduled by nephrology, continue home medications. Rest of details as in the resident physician's documentation.
[2017-12-23 09:33] LABS: Calcium 8.6 mg/dL (8.6-10.3); Magnesium 1.6 mg/dL (1.6-2.6); Potassium 3.1 mEq/L (3.5-5.1)
[2017-12-23] MEDS: Insulin DETEMIR 100 UNIT/ML X5UNITS SQ SCH ×2 (10:08→22:29)
[2017-12-23] MEDS: Budesonide/Formoterol 160/4.5 MDI IH SCH ×2 (11:18→20:33)
--- NOTE | 2017-12-23 14:57 | Nephrology Consult Note ---
Date of Encounter: 12/23/17 Time of Encounter: 15:00 Assessment and Plan (1) ESRD (end stage renal disease) on dialysis Current Visit: No Status: Chronic Will hold off on HF today and planned to resume tomorrow No need to replete potassium if eating Resume home meds (2) Acute gastritis Current Visit: Yes Status: Acute supportive care per primary team Qualifiers: Gastritis type: other gastritis Gastritis bleeding: without bleeding Qualified Code(s): K29.00 - Acute gastritis without bleeding (3) Hyperglycemia Current Visit: Yes Status: Acute Per primary team, resolving (4) Hypokalemia Current Visit: Yes Status: Acute History of Present Illness - Reason for Consult Consult date: 12/23/17 end stage renal disease Requesting physician: Yuniel Menjivar - History of Present Illness 62 y o female with PMH of DM, HTN and ESRD on HD with recurrent hospital stays for recurrent UTIs nd fluid overload admitted with nausea and vomiting of one day duration with no other associated symptoms except hyperglycemia of over 500. Renal consulted for ESRD management as pt missed last HD session. Potassium noted low at 3.1. No signs of fluid overload at present. Pt reports feeling dehydrated and fatigued after her bout of N/V. Past Med Surg Social Fam HX - Past Medical History Medical history: COPD, coronary artery disease, CVA, DVT, dialysis, GERD, GI bleed, hyperlipidemia, hypertension, peripheral artery disease, other Psychiatric history: anxiety, depression, schizophrenia, previous psychiatric hospitalization, other - Past Surgical History Surgical History: angioplasty/stent, appendectomy, cholecystectomy, coronary bypass (CABG), hysterectomy, knee replacement, other, IVC filter - Social History Smoking Status: Current every day smoker Smokeless Tobacco Status: No Alcohol use: none Drug use: none - Family History Father Family Member Ethnicity: Non- Living Status: Hx Family Cardiac Disorders: Yes (CAD, SD) Hx Family Cancer: Yes (Polycythemia) Hx Family Endocrine Disorder: Yes (DM) Mother Family Member Ethnicity: Non- Living Status: Still Living Hx Family Respiratory Disorders: Yes (End stage COPD) Brother Family Member Ethnicity: Non- Living Status: Still Living Sister Adopted: No Family Member Ethnicity: Non- Living Status: Still Living Hx Family Cardiac Disorders: Yes Hx Family Respiratory Disorders: No Hx Family Cancer: No Hx Family GI Disorders: No Hx Family Endocrine Disorder: No Hx Family Neuromuscular Disorders: No Hx Family Neurologic Disorders: No Hx Family HEENT Disorders: No Hx Family Autoimmune Disorders: No Medications and Allergies Clopidogrel [Plavix] 75 mg PO DAILY 05/11/15 [History] Omeprazole [PriLOSEC] 20 mg PO DAILY 05/11/15 [History] Colestipol HCl [Colestid] 1 gm PO BID 06/12/15 [History] Carvedilol 12.5 mg PO BID 10/28/15 [History] Calcium Acetate [Phos-LO] 1,334 mg PO TIDWM 09/06/16 [History] Folic Acid/Vit Bcomp,C [Renal Vitamin Tablet] 0.8 mg PO DAILY 04/15/17 [History] ARIPiprazole [Abilify] 10 mg PO DAILY 09/13/17 [History] Aspirin Enteric Coated [Aspirin EC] 81 mg PO DAILY 09/13/17 [History] Budesonide/Formoterol 160/4.5 [Symbicort 160/4.5] 2 puff IH BIDR 09/13/17 [ History] Cholecalciferol (Vitamin D3) [Vitamin D3] 50,000 unit PO TH 09/13/17 [History] Lidocaine/Prilocaine CREAM [Emla] 1 appl TP AD PRN 09/13/17 [History] OxyCODONE/APAP 10/325 [Percocet 10/325 MG] 1 tab PO Q6H PRN 09/13/17 [History] Oxygen 2 l NS AD 09/13/17 [History] Sennosides [Senna] 8.6 mg PO BID 09/13/17 [History] Sevelamer [Renvela] 800 mg PO TIDWM 09/13/17 [History] Albuterol Neb [AccuNeb] 0.63 mg IH Q6H PRN 10/18/17 [History] Gabapentin [Neurontin] 100 mg PO TID #60 capsule 10/21/17 [Rx] metOLazone [Zaroxolyn] 2.5 mg PO DAILY 10/26/17 [History] Collagenase Oint [Santyl] 1 appl TP DAILY 11/11/17 [History] Oxybutynin [Ditropan] 5 mg PO TID 11/11/17 [History] Isosorbide MONOnitrate (24 HR) [Imdur] 30 mg PO DAILY #30 tab.er.24h 11/19/17 [ Rx] amLODIPine [Norvasc] 10 mg PO DAILY #30 tablet 11/19/17 [Rx] Insulin LISPRO [Humalog Kwikpen U-100] 0 unit SQ ACHS 11/25/17 [History] Acetaminophen [Tylenol] 650 mg PO Q6HR PRN tablet 12/14/17 [Rx] Amitriptyline HCl 100 mg PO HS 12/22/17 [History] Insulin DETEMIR [Levemir Flextouch] 20 unit SQ BID 12/22/17 [History] Morphine Sulfate SR (12 HR) [MS Contin] 30 mg PO Q12HR 12/22/17 [History] Rosuvastatin [Crestor] 20 mg PO HS 12/22/17 [History] 3 Allergy/AdvReac Type Severity Reaction Status Date / Time No Known Allergies Allergy Verified 11/24/17 09:01 Review of Systems All Systems: reviewed and no additional remarkable complaints except as stated ( 10 systems reviewed) Exam - Vital Signs Vital signs: Initial Vital Signs Temp Pulse Resp BP Pulse Ox 98.6 F 98 22 137/59 99 12/22/17 19:30 12/22/17 19:30 12/22/17 19:30 12/22/17 19:30 12/22/17 19:30 Vital Signs - Last 8 Hours Temp Pulse Resp BP Pulse Ox 12/23/17 11:27 98.6 F 87 18 146/70 96 12/23/17 11:18 18 95 12/23/17 08:42 94 12/23/17 08:19 97.8 F 102 20 144/76 94 Intake and Output 12/22/17 12/23/17 12/23/17 23:59 07:59 15:59 Intake Total 0 / 0 720 / 720 Output Total 0 / 0 Balance 0 / 0 720 / 720 Intake: Oral 0 / 0 720 / 720 Output: Urine 0 / 0 Other: Meal Lunch Percent of Meal Consumed 20% Stool Size Small Stool Consistency loose Stool Color Brown # Urine Diapers 1 # Bowel Movement Diapers 1 Weight 104.78 kg Blood Glucose* 137 241 Patient Weight 12/23/17 23:59 Weight 104.78 kg - General Appearance General appearance: chronically ill EENT: ATNC, mucous membranes dry Neck: no JVD, supple Respiratory: clear Cardiology: edema, normal S1, normal S2 - Dialysis Access Dialysis Vascular Access: Arteriovenous Fistula thrill: Yes bruit: Yes Gastrointestinal: no tenderness, no guarding, obese Integumentary: warm and dry Neurologic: no focal deficit Musculoskeletal: no deformities Psychiatric: mood/affect appropriate, cooperative Results - Lab Results 12/23/17 04:49 12/23/17 05:50 Most recent lab results Calcium 8.6 mg/dL (8.6-10.3) 12/23/17 05:50 Magnesium 1.6 mg/dL (1.6-2.6) 12/23/17 05:50 Consult Discharge Plan - Plan Referrals: Tristen Quintana MD [Primary Care Provider] - (web request sent on 12/23/17)
[2017-12-23] MEDS: *HR* OxyCODONE/APAP 10/325 TABLET PO PRN (20:02)
[2017-12-23] MEDS: Ondansetron 4 MG/2 ML VIAL IVP PRN (20:03)
[2017-12-23] MEDS ORDERED: Insulin LISPRO 300 UNITS/3 ML VIAL SQ ONE (22:13)
[2017-12-24] MEDS: *HR* OxyCODONE/APAP 10/325 TABLET PO PRN ×3 (02:05→23:53)
[2017-12-24 05:14] LABS: Basophils # 0.1 K/mcL (0.0-0.2); Basophils % 1.5 %; Eosinophils # 0.3 K/mcL (0.0-0.6); Eosinophils % 4.5 %; Hematocrit 31.7 % (35.3-44.9); Hemoglobin 9.5 g/dL (11.5-15.4); Immature Granulocytes % 0.8 % (0-4); Lymphocytes # 1.6 K/mcL (0.6-4.6); Lymphocytes % 25.9 %; Mean Corpuscular Hemoglobin 27.5 pg (28.0-33.3); Mean Corpuscular Volume 91.6 fL (83.0-100.0); Mean Platelet Volume 10.5 fL (9.4-12.4); Monocytes # 0.6 K/mcL (0.0-1.3); Monocytes % 9.7 %; Neutrophils # 3.4 K/mcL (1.6-8.9); Platelet Count 180 K/mcL (140-400); Red Blood Count 3.46 M/mcL (3.82-4.97); Red Cell Distribution Width 16.4 % (11.5-14.5); Segmented Neutrophils % 57.6 %
[2017-12-24 05:17] LABS: Calcium 8.6 mg/dL (8.6-10.3); Potassium 3.6 mEq/L (3.5-5.1)
[2017-12-24] MEDS: Ondansetron 4 MG/2 ML VIAL IVP PRN ×2 (05:35→16:23)
[2017-12-24] MEDS: *HR* Heparin 5,000 UNIT/ML VIAL SQ SCH ×2 (05:50→18:08)
[2017-12-24] MEDS ORDERED: 0.9 % Sodium Chloride 250 ML IVC PRN (07:56)
[2017-12-24] MEDS: Budesonide/Formoterol 160/4.5 MDI IH SCH ×2 (07:56→21:08)
[2017-12-24] MEDS ORDERED: 0.9 % Sodium Chloride 1,000 ML PRIME SCH (08:00)
[2017-12-24] MEDS ORDERED: 0.9 % Sodium Chloride 1,000 ML ONE (08:22)
[2017-12-24] MEDS: Gabapentin 100 MG CAPSULE PO SCH ×3 (08:33→20:05)
[2017-12-24] MEDS: Aspirin Enteric Coated 81 MG Tablet PO SCH (08:33)
[2017-12-24] MEDS: ARIPiprazole 10 MG TABLET PO SCH (08:33)
[2017-12-24] MEDS: metOLazone 2.5 MG TABLET PO SCH (08:33)
[2017-12-24] MEDS: Calcium Acetate 667 MG CAPSULE PO SCH ×3 (08:33→16:22)
[2017-12-24] MEDS: Renal Vitamin 1 MG CAPSULE PO SCH (08:33)
[2017-12-24] MEDS: Sennosides 8.6 MG TABLET PO SCH ×2 (08:33→20:04)
[2017-12-24] MEDS: Insulin DETEMIR 100 UNIT/ML X5UNITS SQ SCH ×2 (08:34→22:21)
[2017-12-24] MEDS: Insulin LISPRO 300 UNITS/3 ML VIAL SQ SCH ×4 (08:34→22:21)
--- NOTE | 2017-12-24 08:36 | Nephrology Progress Note ---
Date of Encounter: 12/24/17 Time of Encounter: 08:35 - Assessment and Plan (1) ESRD (end stage renal disease) Current Visit: No Status: Chronic Dialysis note: HD planned for today. Was seen/examine while HD, and her initial BFR and DFR and access pressures were well maintained. Next HD is planned for Wednesday. I will be available this weekend, if needed. Thank you. Subjective Principal diagnosis: ESRD Interval history: Pt was s/e while on HD. She appeared comfortable and was sleeping while on HD. Objective - Vital Signs Vital signs: Vital Signs Temp Pulse Resp BP Pulse Ox 12/24/17 07:58 18 100 12/24/17 06:45 98.0 F 77 15 139/73 100 12/24/17 03:14 97.9 F 77 16 128/71 100 12/23/17 23:31 98.4 F 84 14 118/63 100 12/23/17 20:33 18 99 12/23/17 18:48 98.4 F 91 14 115/66 99 12/23/17 15:16 98.4 F 85 20 119/60 94 12/23/17 11:27 98.6 F 87 18 146/70 96 12/23/17 11:18 18 95 12/23/17 08:42 94 Intake and Output 12/23/17 12/24/17 12/24/17 23:59 07:59 15:59 Intake Total 390 / 390 Balance 390 / 390 Intake: Oral 390 / 390 Other: Meal Dinner Percent of Meal Consumed 50% # Voids 1 # Urine Diapers 1 Weight 106.549 kg Blood Glucose* 299 156 Patient Weight 12/24/17 23:59 Weight 106.549 kg - General Appearance General appearance: Present: well-developed, well-nourished, appears started age , obese Respiratory: Present: clear Cardiology: Present: edema (1+ pretibial pitting edema), normal S1, normal S2 Dialysis Vascular Access: Arteriovenous Fistula (LUE AVF with +Thrill and +Bruit ) thrill: Yes bruit: Yes Additional Comments: soft abd Integumentary: Present: chronic venous stasis Additional Comments: Sleeping - Lab 12/24/17 04:46 12/24/17 04:46 Most recent lab results Calcium 8.6 mg/dL (8.6-10.3) 12/24/17 04:46 Magnesium 1.6 mg/dL (1.6-2.6) 12/23/17 05:50 Consult Discharge Plan - Plan Referrals: Tristen Quintana MD [Primary Care Provider] - (web request sent on 12/23/17)
[2017-12-24] MEDS: Isosorbide MONOnitrate (24 HR) 30 MG TAB.ER.24H PO SCH (13:51)
[2017-12-24] MEDS: amLODIPine 5 MG TABLET PO SCH (13:51)
--- NOTE | 2017-12-24 14:10 | Internal Med Progress Note ---
<John Reyes - Last Filed: 12/24/17 14:08> Date of Encounter: 12/24/17 Time of Encounter: 09:10 - Assessment and plan (1) Acute gastritis Current Visit: Yes Status: Acute Assessment and plan: Viral versus uremic. Nausea controlled. Denies any incidence of vomiting. Admits to minor abdominal discomfort in all 4 quadrants. Denies any blood in stool. - Zofran when necessary. Qualifiers: Gastritis type: other gastritis Gastritis bleeding: without bleeding Qualified Code(s): K29.00 - Acute gastritis without bleeding (2) Uncontrolled diabetes mellitus Current Visit: Yes Status: Acute Assessment and plan: Last POC was 156. - Continue sliding scale and basal insulin. Qualifiers: Diabetes mellitus type: type 2 Diabetes mellitus manager long term care insulin use: without manager long term care use Diabetes mellitus complication status: with kidney complications Diabetes mellitus complication detail: with chronic kidney disease Chronic kidney disease stage: on chronic dialysis Qualified Code(s) : E11.22 - Type 2 diabetes mellitus with diabetic chronic kidney disease; E11.65 - Type 2 diabetes mellitus with hyperglycemia; Z99.2 - Dependence on renal dialysis; Z99.2 - Dependence on renal dialysis; Z99.2 - Dependence on renal dialysis; E11.65 - Type 2 diabetes mellitus with hyperglycemia; E11.65 - Type 2 diabetes mellitus with hyperglycemia; E11.65 - Type 2 diabetes mellitus with hyperglycemia; N18.6 - End stage renal disease; N18.6 - End stage renal disease; N18.6 - End stage renal disease; N18.6 - End stage renal disease; Z99.2 - Dependence on renal dialysis (3) CAD (coronary artery disease) Current Visit: No Status: Chronic Assessment and plan: Patient denies chest pain. Continue home medication aspirin/Plavix/beta vera /statin. Qualifiers: Coronary Disease-Associated Artery/Lesion type: [place] artery [place] vs. transplanted heart: [place] heart Associated angina: with unstable angina Qualified Code(s): I25.110 - Atherosclerotic heart disease of [place] coronary artery with unstable angina pectoris (4) COPD (chronic obstructive pulmonary disease) Current Visit: No Status: Chronic Assessment and plan: Stable. No signs of exacerbation. - Continue home medications. Qualifiers: COPD type: chronic bronchitis Chronic bronchitis type: simple Qualified Code(s): J41.0 - Simple chronic bronchitis (5) ESRD (end stage renal disease) on dialysis Current Visit: No Status: Chronic Assessment and plan: Creatinine level increased from 2.05 up to 2.33 today. - Scheduled for hemodialysis today. (6) Tobacco abuse Current Visit: No Status: Chronic (7) DVT prophylaxis Current Visit: No Status: Acute Assessment and plan: - Heparin 5000 units subcutaneously every 12 hours. - Subjective Interval history: Ms. Riley is a 62 year old female with history of diabetes, hypertension, CAD S /P CABG, COPD, end-stage renal disease on hemodialysis, presented to ER for nausea and vomiting. When seen today patient says she still nauseous but says it has been controlled with medication. She denies any vomiting. Patient admits to mild generalized abdominal discomfort.She denies any fever, chills, headaches, dysuria, hematuria, or hematochezia. Patient also denies any chest pain or shortness of breath. - Constitutional Vitals: Temp Pulse Resp BP Pulse Ox 97.0 F L 77 17 142/55 100 12/24/17 10:00 12/24/17 06:45 12/24/17 10:00 12/24/17 12:15 12/24/17 07:58 General appearance: Present: A&O X 3, no acute distress, answers questions appropriately - Respiratory Respiratory exam: Present: CTAB. Absent: accessory muscle use, rales, rhonchi, wheezes - Cardiovascular Cardiovascular exam: Present: RRR, +S1, +S2 (Prominent in the right midsternal area.), systolic murmur - GI/Abdominal GI/Abdominal exam: Present: normal bowel sounds, soft, tenderness (Mild discomfort in all 4 quadrants with palpation). Absent: distended, guarding, rebound - Extremities Exam Extremities exam: Present: normal capillary refill, pedal edema (Bilateral pitting edema +2), warm, radial pulses palpable and symmetrical. Absent: calf tenderness, cyanotic, tenderness Internal Medicine: Result - Labs CBC & Chem 7: 12/24/17 04:46 12/24/17 04:46 Labs: Short CBC 12/24/17 Range/Units 04:46 WBC 6.0 (4.3-11.1) K/mcL Hgb 9.5 L (11.5-15.4) g/dL Hct 31.7 L (35.3-44.9) % Plt Count 180 (140-400) K/mcL Neutrophils # 3.4 (1.6-8.9) K/mcL [facility] 12/24/17 04:46 Sodium 133 L Potassium 3.6 Chloride 97 L Carbon Dioxide 29 BUN 32 H Creatinine 2.33 H Glucose 211 H Calcium 8.6 Consult Discharge Plan - Plan Referrals: Tristen Quintana MD [Primary Care Provider] - (web request sent on 12/23/17) <Papito Stoll T - Last Filed: 12/24/17 14:23> Date of Encounter: 12/24/17 - Constitutional Vitals: Temp Pulse Resp BP Pulse Ox 97.0 F L 77 17 142/55 100 12/24/17 10:00 12/24/17 06:45 12/24/17 10:00 12/24/17 12:15 12/24/17 07:58 Internal Medicine: Result - Labs CBC & Chem 7: 12/24/17 04:46 12/24/17 04:46 Labs: Short CBC 12/24/17 Range/Units 04:46 WBC 6.0 (4.3-11.1) K/mcL Hgb 9.5 L (11.5-15.4) g/dL Hct 31.7 L (35.3-44.9) % Plt Count 180 (140-400) K/mcL Neutrophils # 3.4 (1.6-8.9) K/mcL [facility] 12/24/17 04:46 Sodium 133 L Potassium 3.6 Chloride 97 L Carbon Dioxide 29 BUN 32 H Creatinine 2.33 H Glucose 211 H Calcium 8.6 - Attending Attestation I examined this patient and my medical decision-making was reviewed with the Resident Physician. I agree with the documented findings, disposition and treatment plan as described except to the extent set forth below. Seen and examined at the bedside in HD suite She is readmitted for uncontrolled diabetes and acute gastritis. She also missed hemodialysis. She reports her abdominal discomfort as well as nausea and vomiting has resolved. Physical exam is remarkable for chronic venostasis changes on her lower extremities, chest is clear to auscultation bilaterally and her abdomen is benign. Labs and imaging reviewed at baseline. For hemodialysis as scheduled by nephrology, continue home medications. Rest of details as in the resident physician's documentation.
[2017-12-24] MEDS: *HR* Promethazine 25 MG/ML VIAL IVP PRN (23:53)
[2017-12-25 04:55] LABS: Basophils # 0.1 K/mcL (0.0-0.2); Basophils % 1.1 %; Eosinophils # 0.2 K/mcL (0.0-0.6); Eosinophils % 2.9 %; Hematocrit 31.8 % (35.3-44.9); Hemoglobin 9.9 g/dL (11.5-15.4); Immature Granulocytes % 0.5 % (0-4); Lymphocytes # 1.4 K/mcL (0.6-4.6); Lymphocytes % 22.6 %; Mean Corpuscular HGB Conc 31.1 g/dL (31.6-35.5); Mean Corpuscular Hemoglobin 28.1 pg (28.0-33.3); Mean Corpuscular Volume 90.3 fL (83.0-100.0); Mean Platelet Volume 10.7 fL (9.4-12.4); Monocytes # 0.6 K/mcL (0.0-1.3); Monocytes % 9.3 %; Platelet Count 181 K/mcL (140-400); Red Blood Count 3.52 M/mcL (3.82-4.97); Red Cell Distribution Width 16.3 % (11.5-14.5); Segmented Neutrophils % 63.6 %
[2017-12-25 05:12] LABS: Calcium 8.8 mg/dL (8.6-10.3); Potassium 4.2 mEq/L (3.5-5.1)
[2017-12-25] MEDS: *HR* Heparin 5,000 UNIT/ML VIAL SQ SCH ×2 (05:12→16:20)
[2017-12-25] MEDS: *HR* Promethazine 25 MG/ML VIAL IVP PRN ×3 (06:07→17:51)
[2017-12-25] MEDS: Budesonide/Formoterol 160/4.5 MDI IH SCH ×2 (07:27→20:07)
[2017-12-25] MEDS: Insulin DETEMIR 100 UNIT/ML X5UNITS SQ SCH ×2 (08:55→20:39)
[2017-12-25] MEDS: amLODIPine 5 MG TABLET PO SCH (08:56)
[2017-12-25] MEDS: Calcium Acetate 667 MG CAPSULE PO SCH ×3 (08:56→16:20)
[2017-12-25] MEDS: *HR* OxyCODONE/APAP 10/325 TABLET PO PRN ×2 (08:56→16:20)
[2017-12-25] MEDS: metOLazone 2.5 MG TABLET PO SCH (08:56)
[2017-12-25] MEDS: Sennosides 8.6 MG TABLET PO SCH ×2 (08:56→20:38)
[2017-12-25] MEDS: Renal Vitamin 1 MG CAPSULE PO SCH (08:56)
[2017-12-25] MEDS: Aspirin Enteric Coated 81 MG Tablet PO SCH (08:56)
[2017-12-25] MEDS: Gabapentin 100 MG CAPSULE PO SCH ×3 (08:56→20:38)
[2017-12-25] MEDS: Isosorbide MONOnitrate (24 HR) 30 MG TAB.ER.24H PO SCH (08:56)
[2017-12-25] MEDS: ARIPiprazole 10 MG TABLET PO SCH (08:56)
[2017-12-25] MEDS: Insulin LISPRO 300 UNITS/3 ML VIAL SQ SCH ×4 (08:57→20:38)
--- NOTE | 2017-12-25 17:21 | Internal Med Progress Note ---
Date of Encounter: 12/25/17 Time of Encounter: 11:00 - Assessment and plan (1) Acute gastritis Current Visit: Yes Status: Acute Assessment and plan: continue phenergan, add zofran feed as tolerated Qualifiers: Gastritis type: other gastritis Gastritis bleeding: without bleeding Qualified Code(s): K29.00 - Acute gastritis without bleeding (2) Uncontrolled diabetes mellitus Current Visit: Yes Status: Chronic Assessment and plan: continue current insulin regimen FS ACHS Qualifiers: Diabetes mellitus type: type 2 Diabetes mellitus assisted insulin use: without outreach team member use Diabetes mellitus complication status: with kidney complications Diabetes mellitus complication detail: with chronic kidney disease Chronic kidney disease stage: on chronic dialysis Qualified Code(s) : E11.22 - Type 2 diabetes mellitus with diabetic chronic kidney disease; E11.65 - Type 2 diabetes mellitus with hyperglycemia; Z99.2 - Dependence on renal dialysis; Z99.2 - Dependence on renal dialysis; Z99.2 - Dependence on renal dialysis; E11.65 - Type 2 diabetes mellitus with hyperglycemia; E11.65 - Type 2 diabetes mellitus with hyperglycemia; E11.65 - Type 2 diabetes mellitus with hyperglycemia; N18.6 - End stage renal disease; N18.6 - End stage renal disease; N18.6 - End stage renal disease; N18.6 - End stage renal disease; Z99.2 - Dependence on renal dialysis (3) Elevated troponin Current Visit: Yes Status: Chronic (4) DVT prophylaxis Current Visit: Yes Status: Acute Assessment and plan: SQ heparin (5) COPD (chronic obstructive pulmonary disease) Current Visit: Yes Status: Chronic Assessment and plan: not in exacerbation at this time, duonebs prn, continue home meds Qualifiers: COPD type: chronic bronchitis Chronic bronchitis type: simple Qualified Code(s): J41.0 - Simple chronic bronchitis (6) Chronic respiratory failure with hypoxia Current Visit: Yes Status: Chronic Assessment and plan: O2 by NC prn (7) Diastolic CHF Current Visit: Yes Status: Chronic Assessment and plan: euvolemic on hemodilaysis Qualifiers: Heart failure chronicity: chronic Qualified Code(s): I50.32 - Chronic diastolic (congestive) heart failure (8) ESRD on hemodialysis Current Visit: No Status: Chronic (9) HLD (hyperlipidemia) Current Visit: Yes Status: Chronic Assessment and plan: continue home meds Qualifiers: Hyperlipidemia type: pure hypercholesterolemia Qualified Code(s): E78.00 - Pure hypercholesterolemia, unspecified; E78.0 - Pure hypercholesterolemia (10) HTN (hypertension) Current Visit: Yes Status: Chronic Assessment and plan: continue home meds Qualifiers: Hypertension type: essential hypertension Qualified Code(s): I10 - Essential (primary) hypertension (11) Hyperglycemia due to type 2 diabetes mellitus Current Visit: Yes Status: Resolved Qualifiers: Diabetes mellitus outreach team member insulin use: with assisted use Qualified Code( s): E11.65 - Type 2 diabetes mellitus with hyperglycemia; Z79.4 - halfway ( 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 of insulin; Z79.4 - halfway (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 of insulin; Z79.4 - halfway (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 of insulin; Z79.4 - halfway (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 of insulin - Subjective Interval history: Seen and examined at the bedside No new complains Continues to have vomiting, no diarrhea She had initially improved before Her blood glucose is controlled and her renal function is at baseline - Constitutional Vitals: Temp Pulse Resp BP Pulse Ox 97.8 F 87 17 153/70 100 12/25/17 14:57 12/25/17 14:57 12/25/17 14:57 12/25/17 14:57 12/25/17 14:57 General appearance: Present: A&O X 3, no acute distress, obese, answers questions appropriately - Head Head exam: Present: atraumatic, normocephalic - Eye Eye exam: Present: PERRL, conjuntiva pink, sclera anicteric Pupils: Present: PERRL - Neck Neck exam general surgery: Present: supple, trachea midline. Absent: lymphadenopathy - Respiratory Respiratory exam: Present: CTAB. Absent: accessory muscle use, rales, rhonchi, wheezes - Cardiovascular Cardiovascular exam: Present: RRR, +S1, +S2. Absent: diastolic murmur, gallop, rubs, systolic murmur - GI/Abdominal GI/Abdominal exam: Present: normal bowel sounds, soft, no peritoneal signs. Absent: distended, tenderness - Extremities Exam Additional comments: chronic venous stasis changes - Neurological Exam Neurological exam: Present: alert, CN II-XII intact, oriented X3, no focal deficits. Absent: pronater drift, facial droop, speech deficit - Skin Skin exam: Present: dry, intact Internal Medicine: Result - Labs CBC & Chem 7: 12/25/17 03:59 12/25/17 03:59 Labs: Short CBC 12/25/17 Range/Units 03:59 WBC 6.2 (4.3-11.1) K/mcL Hgb 9.9 L (11.5-15.4) g/dL Hct 31.8 L (35.3-44.9) % Plt Count 181 (140-400) K/mcL Neutrophils # 4.0 (1.6-8.9) K/mcL BMP 12/25/17 03:59 Sodium 129 L Potassium 4.2 Chloride 93 L Carbon Dioxide 30 H BUN 28 H Creatinine 2.52 H Glucose 339 H Calcium 8.8 Consult Discharge Plan - Plan Referrals: Tristen Quintana MD [Primary Care Provider] - (web request sent on 12/23/17)
[2017-12-25] MEDS: Ondansetron 4 MG/2 ML VIAL IVP PRN (20:38)
[2017-12-26] MEDS: *HR* Heparin 5,000 UNIT/ML VIAL SQ SCH ×2 (04:15→18:01)
[2017-12-26] MEDS: *HR* Promethazine 25 MG/ML VIAL IVP PRN ×2 (04:16→20:43)
[2017-12-26] MEDS: *HR* OxyCODONE/APAP 10/325 TABLET PO PRN ×2 (04:16→16:00)
[2017-12-26] MEDS: Insulin DETEMIR 100 UNIT/ML X5UNITS SQ SCH ×2 (09:25→22:14)
[2017-12-26] MEDS: Renal Vitamin 1 MG CAPSULE PO SCH (09:26)
[2017-12-26] MEDS: Calcium Acetate 667 MG CAPSULE PO SCH ×3 (09:26→18:01)
[2017-12-26] MEDS: ARIPiprazole 10 MG TABLET PO SCH (09:26)
[2017-12-26] MEDS: Aspirin Enteric Coated 81 MG Tablet PO SCH (09:26)
[2017-12-26] MEDS: Gabapentin 100 MG CAPSULE PO SCH ×3 (09:26→20:41)
[2017-12-26] MEDS: amLODIPine 5 MG TABLET PO SCH (09:26)
[2017-12-26] MEDS: Insulin LISPRO 300 UNITS/3 ML VIAL SQ SCH ×4 (09:26→20:32)
[2017-12-26] MEDS: metOLazone 2.5 MG TABLET PO SCH (09:27)
[2017-12-26] MEDS: Isosorbide MONOnitrate (24 HR) 30 MG TAB.ER.24H PO SCH (09:27)
[2017-12-26] MEDS: Sennosides 8.6 MG TABLET PO SCH ×2 (09:27→20:41)
[2017-12-26] MEDS: Budesonide/Formoterol 160/4.5 MDI IH SCH ×2 (09:57→20:00)
[2017-12-26 12:05] LABS: Calcium 8.9 mg/dL (8.6-10.3); Potassium 4.4 mEq/L (3.5-5.1)
--- NOTE | 2017-12-26 13:39 | Internal Med Progress Note ---
Date of Encounter: 12/26/17 Time of Encounter: 13:37 - Assessment and plan (1) Abdominal pain Current Visit: Yes Status: Acute Assessment and plan: presented with abdominal pain with associated nausea vomiting. No loose stool. Lipase normal. Keep NPO for now. ABD CT pending Qualifiers: Abdominal location: generalized Qualified Code(s): R10.84 - Generalized abdominal pain (2) ESRD (end stage renal disease) on dialysis Current Visit: No Status: Chronic Assessment and plan: per hx. On HD M//. Nephrology following (3) HTN (hypertension) Current Visit: No Status: Chronic Assessment and plan: per hx. BP controlled. Cont home BP medication. Monitor BP and titrate PRN Qualifiers: Hypertension type: essential hypertension Qualified Code(s): I10 - Essential (primary) hypertension (4) Hyponatremia Current Visit: No Status: Chronic Assessment and plan: Na 125; appears chronic. Was recently evaluated by nephrology who noted likely secondary to ES RD and hypovolemia. Advised on H2O restriction. Neurologically intact. Monitor repeat BMP. Nephrology following (5) Chronic respiratory failure with hypoxia Current Visit: Yes Status: Chronic Assessment and plan: per hx. Has known COPD. With oxygen at e. No evidence of COPD exacerbation, no increased oxygen needs. (6) Diabetes type 2, uncontrolled Current Visit: No Status: Chronic Assessment and plan: per hx. Blood sugars initially uncontrolled on arrival. Now better controlled. Continue SSI. Monitor blood sugar and titrate PRN Qualifiers: Diabetes mellitus complication detail: with chronic kidney disease Chronic kidney disease stage: on chronic dialysis Qualified Code(s): E11.22 - Type 2 diabetes mellitus with diabetic chronic kidney disease; E11.65 - Type 2 diabetes mellitus with hyperglycemia; E11.65 - Type 2 diabetes mellitus with hyperglycemia; E11.65 - Type 2 diabetes mellitus with hyperglycemia; E11.65 - Type 2 diabetes mellitus with hyperglycemia; N18.6 - End stage renal disease; N18.6 - End stage renal disease; N18.6 - End stage renal disease; N18.6 - End stage renal disease; Z99.2 - Dependence on renal dialysis; Z99.2 - Dependence on renal dialysis; Z99.2 - Dependence on renal dialysis; Z99.2 - Dependence on renal dialysis (7) DVT prophylaxis Current Visit: Yes Status: Acute Assessment and plan: heparin - Subjective Interval history: Seen and examined at bedside. Patient is new to me, information obtained from chart review and patient report. She is complaining of abdominal pain, nausea vomiting. Since she cannot keep anything down. This is been going on since Wednesday. No loose stool. No chest pain or shortness of breath. - Constitutional Vitals: Temp Pulse Resp BP Pulse Ox 98.0 F 81 16 131/65 100 12/26/17 11:04 12/26/17 11:04 12/26/17 11:04 12/26/17 11:04 12/26/17 11:04 General appearance: Present: A&O X 3, morbidly obese, no acute distress, answers questions appropriately - Head Head exam: Present: atraumatic, normocephalic - Eye Eye exam: Present: PERRL, conjuntiva pink, sclera anicteric Pupils: Present: PERRL - Neck Neck exam general surgery: Present: supple, trachea midline. Absent: lymphadenopathy - Respiratory Respiratory exam: Present: CTAB. Absent: accessory muscle use, rales, rhonchi, wheezes - Cardiovascular Cardiovascular exam: Present: RRR, +S1, +S2. Absent: diastolic murmur, gallop, rubs, systolic murmur - GI/Abdominal GI/Abdominal exam: Present: normal bowel sounds, soft, no peritoneal signs. Absent: distended, tenderness - Extremities Exam Extremities exam: Present: pedal edema, warm, radial pulses palpable and symmetrical. Absent: calf tenderness, cyanotic Additional comments: LUE A/V fistula - Neurological Exam Neurological exam: Present: CN II-XII intact, oriented X3, no focal deficits. Absent: pronater drift, facial droop, speech deficit - Skin Skin exam: Present: dry, intact Internal Medicine: Result - Labs CBC & Chem 7: 12/25/17 03:59 12/26/17 11:36 Labs: BMP 12/26/17 11:36 Sodium 125 L Potassium 4.4 Chloride 92 L Carbon Dioxide 27 BUN 40 H Creatinine 2.95 H Glucose 282 H Calcium 8.9 Consult Discharge Plan - Plan Referrals: Tristen Quintana MD [Primary Care Provider] - (web request sent on 12/23/17)
[2017-12-26] MEDS: Ondansetron 4 MG/2 ML VIAL IVP PRN (16:00)
[2017-12-27] MEDS: *HR* Heparin 5,000 UNIT/ML VIAL SQ SCH ×2 (04:01→16:22)
[2017-12-27] MEDS: *HR* OxyCODONE/APAP 10/325 TABLET PO PRN ×2 (04:01→16:37)
[2017-12-27 04:58] LABS: Basophils # 0.1 K/mcL (0.0-0.2); Basophils % 0.7 %; Eosinophils # 0.2 K/mcL (0.0-0.6); Hematocrit 32.4 % (35.3-44.9); Immature Granulocytes % 0.6 % (0-4); Lymphocytes # 1.4 K/mcL (0.6-4.6); Lymphocytes % 20.2 %; Mean Corpuscular HGB Conc 30.9 g/dL (31.6-35.5); Mean Corpuscular Hemoglobin 27.9 pg (28.0-33.3); Mean Corpuscular Volume 90.5 fL (83.0-100.0); Mean Platelet Volume 10.7 fL (9.4-12.4); Monocytes # 0.6 K/mcL (0.0-1.3); Monocytes % 8.3 %; Neutrophils # 4.7 K/mcL (1.6-8.9); Platelet Count 167 K/mcL (140-400); Red Blood Count 3.58 M/mcL (3.82-4.97); Red Cell Distribution Width 15.2 % (11.5-14.5); Segmented Neutrophils % 67.2 %
[2017-12-27 05:24] LABS: Calcium 8.9 mg/dL (8.6-10.3); Potassium 4.6 mEq/L (3.5-5.1)
[2017-12-27] MEDS ORDERED: 0.9 % Sodium Chloride 250 ML IVC PRN (07:02)
[2017-12-27] MEDS: Budesonide/Formoterol 160/4.5 MDI IH SCH ×2 (07:34→19:51)
[2017-12-27] MEDS ORDERED: 0.9 % Sodium Chloride 1,000 ML ONE (07:40)
[2017-12-27] MEDS: Gabapentin 100 MG CAPSULE PO SCH ×3 (08:10→21:08)
[2017-12-27] MEDS: amLODIPine 5 MG TABLET PO SCH (08:10)
[2017-12-27] MEDS: Calcium Acetate 667 MG CAPSULE PO SCH ×3 (08:10→16:22)
[2017-12-27] MEDS: Aspirin Enteric Coated 81 MG Tablet PO SCH (08:10)
[2017-12-27] MEDS: ARIPiprazole 10 MG TABLET PO SCH (08:10)
[2017-12-27] MEDS: Isosorbide MONOnitrate (24 HR) 30 MG TAB.ER.24H PO SCH (08:11)
[2017-12-27] MEDS: Renal Vitamin 1 MG CAPSULE PO SCH (08:11)
[2017-12-27] MEDS: Sennosides 8.6 MG TABLET PO SCH ×2 (08:11→21:08)
[2017-12-27] MEDS: Insulin DETEMIR 100 UNIT/ML X5UNITS SQ SCH ×2 (08:17→21:08)
[2017-12-27] MEDS: Insulin LISPRO 300 UNITS/3 ML VIAL SQ SCH ×4 (08:17→21:08)
[2017-12-27] MEDS ORDERED: *HR* Heparin 5,000 UNIT/ML VIAL ONE (11:39)
--- NOTE | 2017-12-27 11:46 | Internal Med Progress Note ---
Date of Encounter: 12/27/17 Time of Encounter: 11:46 - Assessment and plan (1) Abdominal pain Current Visit: Yes Status: Acute Assessment and plan: presented with abdominal pain with associated nausea vomiting. No loose stool. Lipase normal. ABD CT essentially nonacute. Patient still with complaints of abdominal pain and emesis on 12/27/17 exam however RN stated patient has been tolerating 100% a regular diet. Continue regular diet for now, if abdominal pain/nausea/vomiting persists then make NPO Qualifiers: Abdominal location: generalized Qualified Code(s): R10.84 - Generalized abdominal pain (2) ESRD (end stage renal disease) on dialysis Current Visit: No Status: Chronic Assessment and plan: per hx. On HD M/W/. Nephrology following (3) HTN (hypertension) Current Visit: No Status: Chronic Assessment and plan: per hx. BP controlled. Cont home BP medication. Monitor BP and titrate PRN Qualifiers: Hypertension type: essential hypertension Qualified Code(s): I10 - Essential (primary) hypertension (4) Hyponatremia Current Visit: No Status: Chronic Assessment and plan: Na 125; appears chronic. Was recently evaluated by nephrology who noted likely secondary to ES RD and hypovolemia. Advised on H2O restriction. Neurologically intact. Monitor repeat BMP. Nephrology following. Na (5) Chronic respiratory failure with hypoxia Current Visit: Yes Status: Chronic Assessment and plan: per hx. Has known COPD. With oxygen at hoe. No evidence of COPD exacerbation, no increased oxygen needs. (6) Diabetes type 2, uncontrolled Current Visit: No Status: Chronic Assessment and plan: per hx. Blood sugars initially uncontrolled on arrival. Now better controlled. Continue SSI. Monitor blood sugar and titrate PRN Qualifiers: Diabetes mellitus complication detail: with chronic kidney disease Chronic kidney disease stage: on chronic dialysis Qualified Code(s): E11.22 - Type 2 diabetes mellitus with diabetic chronic kidney disease; E11.65 - Type 2 diabetes mellitus with hyperglycemia; E11.65 - Type 2 diabetes mellitus with hyperglycemia; E11.65 - Type 2 diabetes mellitus with hyperglycemia; E11.65 - Type 2 diabetes mellitus with hyperglycemia; N18.6 - End stage renal disease; N18.6 - End stage renal disease; N18.6 - End stage renal disease; N18.6 - End stage renal disease; Z79.4 - intermediate accountant (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 of insulin; Z79.4 - intermediate accountant (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 of insulin; Z79.4 - intermediate accountant (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 of insulin; Z79.4 - nursing home (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 of insulin; Z99.2 - Dependence on renal dialysis ; Z99.2 - Dependence on renal dialysis; Z99.2 - Dependence on renal dialysis; Z99.2 - Dependence on renal dialysis (7) DVT prophylaxis Current Visit: Yes Status: Acute Assessment and plan: heparin - Subjective Interval history: Seen and examined at bedside; says she feels about the same. Still with some abdominal discomfort and nausea and reported emesis however RN stated patient 800% of breakfast without nausea or vomiting. Patient was leaving for dialysis at time of exam. Says she does not feel she is able to return home today. Requesting another night in the hospital. No chest pain or shortness of breath. - Constitutional Vitals: Temp Pulse Resp BP Pulse Ox 98.6 F 89 18 138/76 97 12/27/17 06:45 12/27/17 06:45 12/27/17 07:36 12/27/17 06:45 12/27/17 07:36 General appearance: Present: A&O X 3, morbidly obese, no acute distress, answers questions appropriately - Head Head exam: Present: atraumatic, normocephalic - Eye Eye exam: Present: PERRL, conjuntiva pink, sclera anicteric Pupils: Present: PERRL - Neck Neck exam general surgery: Present: supple, trachea midline. Absent: lymphadenopathy - Respiratory Respiratory exam: Present: CTAB. Absent: accessory muscle use, rales, rhonchi, wheezes - Cardiovascular Cardiovascular exam: Present: RRR, +S1, +S2. Absent: diastolic murmur, gallop, rubs, systolic murmur - GI/Abdominal GI/Abdominal exam: Present: normal bowel sounds, soft, no peritoneal signs. Absent: distended, tenderness - Extremities Exam Extremities exam: Present: warm, radial pulses palpable and symmetrical. Absent : calf tenderness, cyanotic, pedal edema Additional comments: LUE A/V fistula - Neurological Exam Neurological exam: Present: CN II-XII intact, oriented X3, no focal deficits. Absent: pronater drift, facial droop, speech deficit - Skin Skin exam: Present: dry, intact Internal Medicine: Result - Labs CBC & Chem 7: 12/27/17 04:43 12/27/17 04:43 Labs: Short CBC 12/27/17 Range/Units 04:43 WBC 7.0 (4.3-11.1) K/mcL Hgb 10.0 L (11.5-15.4) g/dL Hct 32.4 L (35.3-44.9) % Plt Count 167 (140-400) K/mcL Neutrophils # 4.7 (1.6-8.9) K/mcL BMP 12/26/17 12/27/17 11:36 04:43 Sodium 125 L 128 L Potassium 4.4 4.6 Chloride 92 L 92 L Carbon Dioxide 27 26 BUN 40 H 42 H Creatinine 2.95 H 3.08 H Glucose 282 H 207 H Calcium 8.9 8.9 - Impressions Impressions Abdomen/Pelvis CT 12/26/17 11:21 IMPRESSION: 1. Double-J right ureter stent is noted. Mild left urothelial thickening is again seen with very mild right hydronephrosis, significantly decreased compared to previous study. 2. Calcific atherosclerotic disease aorta. 3. Chronic mild height loss superior endplate L2 may be related osteoporosis. 4. Diverticulosis coli without CT evidence of acute diverticulitis. 5. Nonspecific mild lymph node enlargement is probably reactive. This measures slightly smaller than previously. 6. Mild left adrenal hyperplasia. D/ / Abraham Ulloa / Abraham Ulloa Interpreting Provider: Abraham Ulloa Consult Discharge Plan - Plan Referrals: Tristen Quintana MD [Primary Care Provider] - (web request sent on 12/23/17)
--- NOTE | 2017-12-27 14:03 | Nephrology Progress Note ---
Date of Encounter: 12/27/17 Time of Encounter: 11:45 - Assessment and Plan (1) ESRD (end stage renal disease) Status: Chronic Dialysis note: HD planned for today. Was seen/examine while HD, and her initial BFR and DFR and access pressures were well maintained. Next HD is planned for . (2) Hyponatremia Status: Acute Hyponatremia: likely from the thiazide type diuretic, so I've stopped Metolazone and recommend it not be restarted at discharge. I reviewed her trend and she is persistently hyponatremic. Subjective Principal diagnosis: ESRD Interval history: Pt was s/e earlier in the day. She did not affirm N.V/D or new major complaints to me. Objective - Vital Signs Vital signs: Vital Signs Temp Pulse Resp BP Pulse Ox 12/27/17 11:56 79 16 122/60 98 12/27/17 10:50 99.1 F 17 137/65 12/27/17 07:36 18 97 12/27/17 06:45 98.6 F 89 17 138/76 96 12/27/17 04:11 98.4 F 90 17 136/66 95 12/26/17 23:28 98.3 F 91 18 150/57 93 12/26/17 20:51 98 12/26/17 20:05 98.2 F 88 16 156/71 98 12/26/17 20:01 16 96 12/26/17 16:02 97.8 F 82 17 156/82 100 Intake and Output 12/26/17 12/27/17 12/27/17 23:59 07:59 15:59 Intake Total 300 / 300 630 / 630 Output Total 200 / 200 Balance 300 / 300 -200 / -200 630 / 630 Intake: Oral 300 / 300 30 / 30 Intake, Rinseback and Flushes 600 / 600 Output: Urine 200 / 200 Other: Meal Dinner Percent of Meal Consumed 40% Weight 106 kg Blood Glucose* 169 143 Hemodialysis Net Fluid Removed 0 (mL) Patient Weight 12/27/17 23:59 Weight 106 kg - General Appearance General appearance: Present: well-developed, well-nourished, appears started age , obese EENT: Present: ATNC, PERRL, mucous membranes moist Neck: Present: supple Respiratory: Present: clear Cardiology: Present: edema (1+ pretibial pitting edema bilaterally), regular rate, regular rhythm, normal S1, normal S2 Dialysis Vascular Access: Arteriovenous Graft thrill: Yes bruit: Yes Gastrointestinal: Present: normoactive bowel sounds, no tenderness, no masses, obese Integumentary: Present: chronic venous stasis Neurologic: Present: no focal deficit, no asterixis, alert and oriented x3 Musculoskeletal: Present: no erythema, no cyanosis, no clubbing Psychiatric: Present: mood/affect appropriate, cooperative - Lab 12/29/17 04:00 12/29/17 04:00 Most recent lab results Calcium 8.9 mg/dL (8.6-10.3) 12/27/17 04:43 Magnesium 1.6 mg/dL (1.6-2.6) 12/23/17 05:50 Consult Discharge Plan - Plan Instructions: Doxycycline (By mouth), Cellulitis (DC), Hypokalemia (DC), Acute Abdominal Pain (DC), Diabetic Hyperglycemia (DC) Referrals: Tristen Quintana MD [Primary Care Provider] - (web request sent on 12/23/17)
[2017-12-28] MEDS: *HR* Heparin 5,000 UNIT/ML VIAL SQ SCH ×2 (05:21→16:09)
[2017-12-28] MEDS: Budesonide/Formoterol 160/4.5 MDI IH SCH ×2 (07:42→20:00)
[2017-12-28] MEDS: amLODIPine 5 MG TABLET PO SCH (08:04)
[2017-12-28] MEDS: Gabapentin 100 MG CAPSULE PO SCH ×3 (08:05→22:36)
[2017-12-28] MEDS: Calcium Acetate 667 MG CAPSULE PO SCH ×3 (08:05→16:07)
[2017-12-28] MEDS: Renal Vitamin 1 MG CAPSULE PO SCH (08:05)
[2017-12-28] MEDS: Isosorbide MONOnitrate (24 HR) 30 MG TAB.ER.24H PO SCH (08:05)
[2017-12-28] MEDS: Aspirin Enteric Coated 81 MG Tablet PO SCH (08:05)
[2017-12-28] MEDS: Sennosides 8.6 MG TABLET PO SCH ×2 (08:05→22:36)
[2017-12-28] MEDS: ARIPiprazole 10 MG TABLET PO SCH (08:06)
[2017-12-28] MEDS: Insulin DETEMIR 100 UNIT/ML X5UNITS SQ SCH ×2 (08:06→22:36)
[2017-12-28] MEDS: *HR* OxyCODONE/APAP 10/325 TABLET PO PRN (08:13)
[2017-12-28] MEDS: Insulin LISPRO 300 UNITS/3 ML VIAL SQ SCH ×4 (08:13→22:36)
--- NOTE | 2017-12-28 08:28 | Electrocardiograph Report ---
[place] [id number] Test Date: 2017-12-22 Pat Name: Lynnette Riley Department: 102 Room: 2A42 Gender: F Radiography Technician: Nickolas : 1955 Requested By: Stephanie Antony Order Number: [id number] Reading MD: Laisha Shepherd Measurements Intervals [place] Rate: 96 P: 71 [place]: 162 QRS: 94 QRSD: 92 T: 74 QT: 386 QTc: 439 Interpretive Statements SINUS RHYTHM WITH SINUS ARRHYTHMIA BORDERLINE RIGHT AXIS DEVIATION [QRS AXIS > 90] NONSPECIFIC ST & T-WAVE ABNORMALITY Electronically Signed On 12-28-2017 8:26:41 EDT by Laisha Shepherd
--- NOTE | 2017-12-28 08:37 | Nephrology Progress Note ---
Date of Encounter: 12/28/17 Time of Encounter: 08:34 - Assessment and Plan (1) ESRD (end stage renal disease) on dialysis Current Visit: No Status: Chronic Plan for HD tomorrow. Continue renal diet and fluid restriction Avoid nephrotoxins if possible (2) Hyponatremia Current Visit: No Status: Acute Na+ 128 improved Continue to hold the Metolazone. Patient has chronic hyponatremia (3) Diabetes type 2, uncontrolled Current Visit: No Status: Chronic per primary team Qualifiers: Diabetes mellitus complication status: with kidney complications Diabetes mellitus complication detail: with chronic kidney disease Chronic kidney disease stage: on chronic dialysis Qualified Code(s): E11.22 - Type 2 diabetes mellitus with diabetic chronic kidney disease; E11.65 - Type 2 diabetes mellitus with hyperglycemia; E11.65 - Type 2 diabetes mellitus with hyperglycemia; E11.65 - Type 2 diabetes mellitus with hyperglycemia; E11.65 - Type 2 diabetes mellitus with hyperglycemia; N18.6 - End stage renal disease; N18.6 - End stage renal disease; N18.6 - End stage renal disease; N18.6 - End stage renal disease; Z79.4 - group home (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 of insulin; Z79.4 - group home (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 of insulin; Z79.4 - corporate associate (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 of insulin; Z79.4 - group home (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 of insulin; Z99.2 - Dependence on renal dialysis ; Z99.2 - Dependence on renal dialysis; Z99.2 - Dependence on renal dialysis; Z99.2 - Dependence on renal dialysis Subjective Principal diagnosis: ESRD Interval history: Patient seen and examined. Sitting up on side of bed eating breakfast. Objective - Vital Signs Vital signs: Vital Signs Temp Pulse Resp BP Pulse Ox 12/28/17 08:08 98.3 F 90 14 122/63 98 12/28/17 07:45 16 99 12/28/17 03:56 98.4 F 81 16 156/77 100 12/27/17 23:46 98.9 F 80 16 127/57 100 12/27/17 20:50 100.2 F H 88 16 138/61 96 12/27/17 19:52 17 95 Intake and Output 12/27/17 12/28/17 12/28/17 23:59 07:59 15:59 Intake Total 0 / 0 Balance 0 / 0 Intake: Oral 0 / 0 Other: Weight 109.6 kg Blood Glucose* 421 199 Patient Weight 12/28/17 23:59 Weight 109.6 kg - General Appearance General appearance: Present: obese EENT: Present: ATNC, mucous membranes moist, hearing intact, vision intact Neck: Present: supple Respiratory: Present: clear Cardiology: Present: no edema, normal S1, normal S2 Dialysis Vascular Access: Arteriovenous Fistula Gastrointestinal: Present: no tenderness, no guarding Integumentary: Present: warm and dry Neurologic: Present: alert and oriented x3 Psychiatric: Present: mood/affect appropriate, cooperative - Lab 12/27/17 04:43 12/27/17 04:43 Most recent lab results Calcium 8.9 mg/dL (8.6-10.3) 12/27/17 04:43 Magnesium 1.6 mg/dL (1.6-2.6) 12/23/17 05:50 Consult Discharge Plan - Plan Referrals: Tristen Quintana MD [Primary Care Provider] - (web request sent on 12/23/17)
[2017-12-28 10:16] LABS: Calcium 8.6 mg/dL (8.6-10.3); Potassium 4.1 mEq/L (3.5-5.1)
--- NOTE | 2017-12-28 12:19 | Discharge Summary ---
Orders not resulted at time of discharge: Pending orders 12/29/17 04:00 Vancomycin,Random AM 0400 Date of Encounter: 12/28/17 Time of Encounter: 12:16 - Discharge Diagnosis (1) Abdominal pain Priority: Primary Status: Acute Comments: presented with abdominal pain with associated nausea/vomiting. No loose stool. Lipase normal. ABD CT essentially nonacute. Patient still with complaints of abdominal pain and emesis on 12/28/17 exam however RN stated patient has been tolerating 100% a regular diet without emesis. Abdominal exam benign. Suspect she has a component of chronic abdominal pain. No further workup indicated at this time. Consider further diagnostic if symptoms persist otherwise continue PO diet as she tolerates. Qualifiers: Abdominal location: generalized Qualified Code(s): R10.84 - Generalized abdominal pain (2) ESRD (end stage renal disease) on dialysis Priority: Primary Status: Chronic Comments: per hx. On HD M/W/F. Nephrology followed (3) HTN (hypertension) Priority: Primary Status: Chronic Comments: per hx. BP controlled. Cont home BP medication. Qualifiers: Hypertension type: essential hypertension Qualified Code(s): I10 - Essential (primary) hypertension (4) Hyponatremia Priority: Secondary Status: Chronic Comments: Na 125; appears chronic. Likely secondary to ESRD and hypovolemia. Advised on H2O restriction. Neurologically intact. Holding metolazone. Nephrology followed (5) Chronic respiratory failure with hypoxia Priority: Secondary Status: Chronic Comments: per hx. Has known COPD. With oxygen at home. No evidence of COPD exacerbation , no increased oxygen needs. (6) Diabetes type 2, uncontrolled Priority: Primary Status: Chronic Comments: per hx. Blood sugars initially uncontrolled on arrival. Now better controlled. Continue SSI. Monitor blood sugar and titrate PRN Qualifiers: Diabetes mellitus complication status: with kidney complications Diabetes mellitus complication detail: with chronic kidney disease Chronic kidney disease stage: on chronic dialysis Qualified Code(s): E11.22 - Type 2 diabetes mellitus with diabetic chronic kidney disease; E11.65 - Type 2 diabetes mellitus with hyperglycemia; Z79.4 - retirement (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 of insulin ; Z79.4 - gun number (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 of insulin; Z79.4 - gun number (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 of insulin; Z99.2 - Dependence on renal dialysis; Z99.2 - Dependence on renal dialysis; Z99.2 - Dependence on renal dialysis; Z99.2 - Dependence on renal dialysis; E11.65 - Type 2 diabetes mellitus with hyperglycemia; E11.65 - Type 2 diabetes mellitus with hyperglycemia; E11.65 - Type 2 diabetes mellitus with hyperglycemia; N18.6 - End stage renal disease; N18.6 - End stage renal disease ; N18.6 - End stage renal disease; N18.6 - End stage renal disease; Z79.4 - gun number (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 of insulin (7) Cellulitis Priority: Primary Status: Acute Comments: to bilateral lower extremities. Concern for MRSA as she goes to HD 3 times a week. Symptoms significantly improved with IV vancomycin. Discharge home on doxycycline. Qualifiers: Site of cellulitis: extremity Site of cellulitis of extremity: lower extremity Laterality: right Qualified Code(s): L03.115 - Cellulitis of right lower limb Hospital course: Ms. Riley is a 62 year old female with PMH HTN, DM and ESRD on HD who presented to [facility] on 12/23/17 with complaints of abdominal pain. She was found to have uncontrolled blood glucose and was admitted for further workup and treatment. She was discharged home on 12/29/2017 in stable condition with outpatient follow-up. Please see assessment and plan for further details. - Time Spent with Patient Total time spent providing and/or coordinating discharge services: - Discharge Medications Prescriptions: Doxycycline 100 mg PO BID #10 capsule Home Medications: Clopidogrel [Plavix] 75 mg PO DAILY 05/11/15 [History] Omeprazole [PriLOSEC] 20 mg PO DAILY 05/11/15 [History] Colestipol HCl [Colestid] 1 gm PO BID 06/12/15 [History] Carvedilol 12.5 mg PO BID 10/28/15 [History] Calcium Acetate [Phos-LO] 1,334 mg PO TIDWM 09/06/16 [History] Folic Acid/Vit Bcomp,C [Renal Vitamin Tablet] 0.8 mg PO DAILY 04/15/17 [History] ARIPiprazole [Abilify] 10 mg PO DAILY 09/13/17 [History] Aspirin Enteric Coated [Aspirin EC] 81 mg PO DAILY 09/13/17 [History] Budesonide/Formoterol 160/4.5 [Symbicort 160/4.5] 2 puff IH BIDR 09/13/17 [ History] Cholecalciferol (Vitamin D3) [Vitamin D3] 50,000 unit PO TH 09/13/17 [History] Lidocaine/Prilocaine CREAM [Emla] 1 appl TP AD PRN 09/13/17 [History] OxyCODONE/APAP 10/325 [Percocet 10/325 MG] 1 tab PO Q6H PRN 09/13/17 [History] Oxygen 2 l NS AD 09/13/17 [History] Sennosides [Senna] 8.6 mg PO BID 09/13/17 [History] Sevelamer [Renvela] 800 mg PO TIDWM 09/13/17 [History] Albuterol Neb [AccuNeb] 0.63 mg IH Q6H PRN 10/18/17 [History] Gabapentin [Neurontin] 100 mg PO TID #60 capsule 10/21/17 [Rx] Collagenase Oint [Santyl] 1 appl TP DAILY 11/11/17 [History] Oxybutynin [Ditropan] 5 mg PO TID 11/11/17 [History] Isosorbide MONOnitrate (24 HR) [Imdur] 30 mg PO DAILY #30 tab.er.24h 11/19/17 [ Rx] amLODIPine [Norvasc] 10 mg PO DAILY #30 tablet 11/19/17 [Rx] Insulin LISPRO [Humalog Kwikpen U-100] 0 unit SQ ACHS 11/25/17 [History] Acetaminophen [Tylenol] 650 mg PO Q6HR PRN tablet 12/14/17 [Rx] Amitriptyline HCl 100 mg PO HS 12/22/17 [History] Insulin DETEMIR [Levemir Flextouch] 20 unit SQ BID 12/22/17 [History] Morphine Sulfate SR (12 HR) [MS Contin] 30 mg PO Q12HR 12/22/17 [History] Rosuvastatin [Crestor] 20 mg PO HS 12/22/17 [History] Doxycycline 100 mg PO BID #10 capsule 12/28/17 [Rx] Allergies/Adverse Reactions: 3 Allergy/AdvReac Type Severity Reaction Status Date / Time No Known Allergies Allergy Verified 11/24/17 09:01 Date of admission: 12/27/17 18:56 Primary care physician: Tristen Quintana MD Consults: 12/28/17 11:11 Consult to Occupational Therapy [CONS] Routine Comment: Evaluate, develop and implement POC Reason for Consult: weakness Does patient have active BEDREST order?: No Is patient medically & hemodynamically stable?: Yes Consult to Physical Therapy [CONS] Routine Comment: Evaluate, develop and implement POC Reason for Consult: weakness Does patient have active BEDREST order?: No Is patient medically & hemodynamically stable?: Yes Discharging clinician: Cammie Campbell Anticipated date of discharge: 12/29/17 - Constitutional Vitals: Temp Pulse Resp BP Pulse Ox 98.9 F 85 14 126/67 98 12/28/17 10:50 12/28/17 10:50 12/28/17 10:50 12/28/17 10:50 12/28/17 10:50 General appearance: Present: A&O X 3, morbidly obese, no acute distress, answers questions appropriately - Patient Status Disposition: Home, Self-Care Condition: Good Functional capacity at discharge: uses cane/walker Overall status at discharge: patient is back to baseline - Discharge Instructions Instructions: Cellulitis (DC), Doxycycline (By mouth) Follow Up With: Tristen Quintana MD [Primary Care Provider] - (web request sent on 12/23/17) - Diet and Activity Activity: increase activity as tolerated Diet: diabetic diet
[2017-12-29] MEDS: Ondansetron 4 MG/2 ML VIAL IVP PRN (04:50)
[2017-12-29] MEDS: *HR* OxyCODONE/APAP 10/325 TABLET PO PRN (04:50)
[2017-12-29] MEDS: *HR* Heparin 5,000 UNIT/ML VIAL SQ SCH ×2 (04:50→17:21)
[2017-12-29 05:01] LABS: Hematocrit 28.9 % (35.3-44.9); Hemoglobin 9.1 g/dL (11.5-15.4); Mean Corpuscular HGB Conc 31.5 g/dL (31.6-35.5); Mean Corpuscular Volume 88.9 fL (83.0-100.0); Mean Platelet Volume 10.9 fL (9.4-12.4); Platelet Count 140 K/mcL (140-400); Red Blood Count 3.25 M/mcL (3.82-4.97)
[2017-12-29 05:17] LABS: Calcium 8.6 mg/dL (8.6-10.3); Potassium 4.2 mEq/L (3.5-5.1)
[2017-12-29] MEDS ORDERED: 0.9 % Sodium Chloride 250 ML IVC PRN (06:32)
[2017-12-29] MEDS ORDERED: 0.9 % Sodium Chloride 2,000 ML ONE (06:54)
[2017-12-29] MEDS: Gabapentin 100 MG CAPSULE PO SCH ×2 (07:56→17:19)
[2017-12-29] MEDS: Calcium Acetate 667 MG CAPSULE PO SCH ×3 (07:56→17:19)
[2017-12-29] MEDS: ARIPiprazole 10 MG TABLET PO SCH (07:56)
[2017-12-29] MEDS: Renal Vitamin 1 MG CAPSULE PO SCH (07:56)
[2017-12-29] MEDS: Sennosides 8.6 MG TABLET PO SCH (07:57)
[2017-12-29] MEDS: Aspirin Enteric Coated 81 MG Tablet PO SCH (07:57)
[2017-12-29] MEDS: Insulin LISPRO 300 UNITS/3 ML VIAL SQ SCH ×3 (07:58→17:27)
[2017-12-29] MEDS: Insulin DETEMIR 100 UNIT/ML X5UNITS SQ SCH (07:59)
[2017-12-29] MEDS: Budesonide/Formoterol 160/4.5 MDI IH SCH (11:31)
--- NOTE | 2017-12-29 13:16 | Nephrology Progress Note ---
Date of Encounter: 12/29/17 Time of Encounter: 11:45 - Assessment and Plan (1) ESRD (end stage renal disease) Status: Chronic Dialysis note: HD planned for today. Was seen/examine while HD, and her initial BFR and DFR and access pressures were well maintained. Okay to discharge from a renal perspective Next HD is planned for Wednesday if she were to remain hospitalized. (2) Hyponatremia Status: Acute Hyponatremia: likely from the thiazide type diuretic, so I've stopped Metolazone and recommend it not be restarted at discharge. I reviewed her trend and she is persistently hyponatremic. Subjective Principal diagnosis: ESRD Interval history: Pt was s/e while on HD. She interviewed and examined while on HD. She did not affirm N/V/D or chest pain or cramping. Objective - Vital Signs Vital signs: Vital Signs Temp Pulse Resp BP Pulse Ox 12/29/17 12:58 97.4 F L 18 155/70 12/29/17 12:30 144/66 12/29/17 12:15 165/57 12/29/17 12:00 151/69 12/29/17 11:45 113/71 12/29/17 11:30 146/60 12/29/17 11:15 161/65 12/29/17 11:00 154/69 12/29/17 10:45 143/61 12/29/17 10:30 143/61 12/29/17 10:15 165/47 12/29/17 10:00 159/74 12/29/17 09:45 139/81 12/29/17 09:30 143/71 12/29/17 09:15 139/67 12/29/17 09:00 97.8 F 20 143/71 12/29/17 06:46 97.4 F L 77 17 127/66 98 12/29/17 03:55 97.5 F L 81 18 118/52 99 12/29/17 00:07 100 F H 87 16 149/77 94 12/28/17 21:12 98.4 F 84 18 136/58 98 12/28/17 20:02 16 100 12/28/17 15:28 98.1 F 78 15 143/72 99 Intake and Output 12/28/17 12/29/17 12/29/17 23:59 07:59 15:59 Intake Total 1200 / 1200 1230 / 1230 Output Total 100 / 100 3900 / 3900 Balance 1200 / 1200 -100 / -100 -2670 / -2670 Intake: Oral 1200 / 1200 630 / 630 Intake, Rinseback and Flushes 600 / 600 Output: Urine 100 / 100 300 / 300 Total Dialysis (HD) Output 3600 / 3600 Other: Meal Chicken Noodle Soup Breakfast Percent of Meal Consumed 100% 50% Weight 108.499 kg Blood Glucose* 216 177 126 Hemodialysis Net Fluid Removed 3000 (mL) Patient Weight 12/29/17 23:59 Weight 108.499 kg - General Appearance Exam: General appearance: Present: well-developed, well-nourished, appears started age , obese EENT: Present: ATNC, PERRL, mucous membranes moist Neck: Present: supple Respiratory: Present: clear Cardiology: Present: edema (1+ pretibial pitting edema bilaterally), regular rate, regular rhythm, normal S1, normal S2 Dialysis Vascular Access: Arteriovenous Graft thrill: Yes bruit: Yes Gastrointestinal: Present: normoactive bowel sounds, no tenderness, no masses, obese Integumentary: Present: chronic venous stasis Neurologic: Present: no focal deficit, no asterixis, alert and oriented x3 Musculoskeletal: Present: no erythema, no cyanosis, no clubbing Psychiatric: Present: mood/affect appropriate, cooperative - Lab 12/29/17 04:00 12/29/17 04:00 Most recent lab results Calcium 8.6 mg/dL (8.6-10.3) 12/29/17 04:00 Magnesium 1.6 mg/dL (1.6-2.6) 12/23/17 05:50 Consult Discharge Plan - Plan Instructions: Doxycycline (By mouth), Cellulitis (DC), Hypokalemia (DC), Acute Abdominal Pain (DC), Diabetic Hyperglycemia (DC) Referrals: Tristen Quintana MD [Primary Care Provider] - (web request sent on 12/23/17)
[2017-12-29] MEDS: Isosorbide MONOnitrate (24 HR) 30 MG TAB.ER.24H PO SCH (13:39)
[2017-12-29] MEDS: amLODIPine 5 MG TABLET PO SCH (13:39)
[2017-12-29 15:40] VITALS: BP 147/73
[2017-12-29] MEDS ORDERED: Vancomycin 500 MG in 0.9 % Sodium Chloride Mini Bag 100 ML IVPB ONE (16:00)
[2017-12-29] MEDS ORDERED: Aminoglycoside Consult 1 EACH MC ONE (18:44)
== END 2017-12-29 18:45 | disposition home or self-care (01) ==
LOC: EMEROO 19:26 → 2ANU 19:26 → SUATTDRO 23:12 → 2ANU 23:26
PROVIDERS: ADMIT Internal Medicine; ATTEND Internal Medicine

== ENCOUNTER 2018-01-05 22:34 | Inpatient (IN) ==
[2018-01-05] MEDS ORDERED: Ipratropium/Albuterol Neb 3 ML IH ONE (22:43)
--- NOTE | 2018-01-05 22:47 | Emergency Department Note ---
Disposition Clinical Impression: Generalized weakness Nausea & vomiting Qualifiers: Vomiting type: unspecified Vomiting Intractability: non-intractable Qualified Code(s): R11.2 - Nausea with vomiting, unspecified Fluid overload Qualifiers: Hypervolemia type: unspecified Qualified Code(s): E87.70 - Fluid overload, unspecified Acute CHF Qualifiers: Heart failure type: right-sided Qualified Code(s): I50.811 - Acute right heart failure UTI (urinary tract infection) Qualifiers: Urinary tract infection type: acute cystitis Hematuria presence: with hematuria Qualified Code(s): N30.01 - Acute cystitis with hematuria Disposition: Admitted As Inpatient Condition: Undetermined Time of Disposition: : General Adult HPI - General Chief complaint: ED Abdominal Pain Stated complaint: abd pain, nausea Time Seen by Provider: 01/05/18 22:37 Source: patient, EMS Mode of arrival: EMS Limitations: no limitations Nursing Notes Reviewed: Yes Vital Signs Reviewed: Yes - History of Present Illness HPI Narrative: 62-year-old female with history of COPD on oxygen, 3 L [id number], history of end-stage renal disease on dialysis Wednesday, with 3 days of nausea without vomiting as well as general was abdominal pain and dyspnea more than normal. The patient states that this abdominal pain and nausea started roughly 3 days ago. She denies any diarrhea, vomiting, hematochezia, melena, hematemesis. She also states that she is feeling more short of breath than her baseline. She is having bilateral lower extremity swelling that is worsening. The patient missed dialysis 2 days ago and went to dialysis for the first time today since this past Wednesday. She is unsure much fluid pulled off. Patient denies any fevers or chills. Pain Scale: 6 - Related Data Home Medications Medication Instructions Recorded Confirmed Clopidogrel [Plavix] 75 mg PO DAILY 05/11/15 01/06/18 Omeprazole [PriLOSEC] 20 mg PO DAILY 05/11/15 01/06/18 Colestipol HCl [Colestid] 1 gm PO BID 06/12/15 01/06/18 Carvedilol 12.5 mg PO BID 10/28/15 01/06/18 Calcium Acetate [Phos-LO] 1,334 mg PO TIDWM 09/06/16 01/06/18 Folic Acid/Vit Bcomp,C [Renal 0.8 mg PO DAILY 04/15/17 01/06/18 Vitamin Tablet] ARIPiprazole [Abilify] 10 mg PO DAILY 09/13/17 01/06/18 Aspirin Enteric Coated [Aspirin EC] 81 mg PO DAILY 09/13/17 01/06/18 Budesonide/Formoterol 160/4.5 2 puff IH BIDR 09/13/17 01/06/18 [Symbicort 160/4.5] Cholecalciferol (Vitamin D3) 50,000 unit PO TH 09/13/17 01/06/18 [Vitamin D3] Lidocaine/Prilocaine CREAM [Emla] 1 appl TP AD PRN 09/13/17 01/06/18 OxyCODONE/APAP 10/325 [Percocet 1 tab PO Q6H PRN 09/13/17 01/06/18 10/325 MG] Sennosides [Senna] 8.8 mg PO BID 09/13/17 01/06/18 Sevelamer [Renvela] 800 mg PO TID 09/13/17 01/06/18 Albuterol Neb [AccuNeb] 0.63 mg IH Q6H PRN 10/18/17 01/06/18 Collagenase Oint [Santyl] 1 appl TP DAILY 11/11/17 01/06/18 Oxybutynin [Ditropan] 5 mg PO TID 11/11/17 01/06/18 Insulin LISPRO [Humalog Kwikpen 0 unit SQ ACHS 11/25/17 01/06/18 U-100] Amitriptyline HCl 100 mg PO HS 12/22/17 01/06/18 Insulin DETEMIR [Levemir Flextouch] 20 unit SQ BID 12/22/17 01/06/18 Morphine Sulfate SR (12 HR) [MS 30 mg PO Q12HR 12/22/17 01/06/18 Contin] Rosuvastatin [Crestor] 10 mg PO HS 12/22/17 01/06/18 amLODIPine [Norvasc] 5 mg PO DAILY 12/30/17 01/06/18 Previous Rx's Medication Instructions Recorded Gabapentin [Neurontin] 100 mg PO TID #60 capsule 10/21/17 Isosorbide MONOnitrate (24 HR) 30 mg PO DAILY #30 tab.er.24h 11/19/17 [Imdur] Acetaminophen [Tylenol] 650 mg PO Q6HR PRN tablet 12/14/17 levoFLOXacin [Levaquin] 750 mg PO DAILY #6 tablet 01/03/18 Allergies Allergy/AdvReac Type Severity Reaction Status Date / Time No Known Allergies Allergy Verified 11/24/17 09:01 All systems ED: reviewed and negative except as stated. Constitutional: Denies: fever, chills, weakness ENT ED: Denies: congestion Cardiovascular: Reports: dyspnea on exertion, edema. Denies: chest pain, orthopnea Respiratory: Reports: dyspnea, wheezes. Denies: cough, sputum production Gastrointestinal: Reports: abdominal pain, nausea. Denies: vomiting, diarrhea, constipation, hematemesis, melena, hematochezia Genitourinary: Denies: urgency, dysuria Musculoskeletal: Denies: back pain, neck pain, arthralgia, myalgia Neurological: Denies: headache, weakness, numbness, paresthesias Past Medical History - Past Medical History Attestation: Yes The following information was validated with the patient. 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 - Social History Smoking Status: Current every day smoker Smokeless Tobacco Status: No Alcohol use: Reports: none Drug use: Reports: none Physical Exam - General Limitations: no limitations General appearance: alert, in no apparent distress - Head Head exam: atraumatic, normocephalic, normal inspection - Eye Eye exam: Present: normal appearance, PERRL, EOMI - ENT ENT exam: normal exam, normal oropharynx, mucous membranes moist - Neck Neck exam: Present: normal inspection, full ROM, trachea midline - Chest Chest inspection: Present: normal inspection, symmetric chest wall rise - Respiratory Respiratory exam: Present: other (Coarse breath sounds, rales in bilateral lower lobes) - Cardiovascular Cardiovascular exam: Present: regular rate, normal rhythm, normal heart sounds - Abdominal Exam Abdominal exam: Present: soft, tenderness (Generalized, worse in periumbilical region). Absent: distention, guarding, rebound, rigidity, Stein's sign, Rovsing's sign - Extremities Exam Extremities exam: Present: full ROM, pedal edema (3+ pitting bilaterally with erythema and warmth on palpation). Absent: tenderness - Neurological Exam Neurological exam: Present: alert, oriented X3 - Skin Skin exam: Present: warm, dry, intact, normal color Course Vital Signs Temperature 99.2 F 01/05/18 22:43 Pulse Rate 116 01/05/18 22:43 Respiratory Rate 22 01/05/18 22:43 Blood Pressure 181/87 01/05/18 22:43 O2 Sat by Pulse Oximetry 94 01/05/18 22:43 Temperature 99.2 F 01/05/18 22:43 Pulse Rate 119 01/06/18 01:09 Respiratory Rate 22 01/06/18 01:09 Blood Pressure 142/64 01/06/18 01:09 O2 Sat by Pulse Oximetry 96 01/06/18 01:09 Oxygen Delivery Oxygen Delivery Nasal Cannula Medical Decision Making - MDM Narrative Medical decision making narrative: Workup in the emergency department given strict findings consistent with congestive heart failure as well as fluid overload. Given the patient's skipping dialysis 2 days ago, the patient appears fluid overloaded. Chest x- ray demonstrates mild bibasilar atelectasis. She has no leukocytosis. This appears more associated with the patient's dyspnea and consistent with the findings of bilateral pedal edema. We will admit the patient to the hospital at this time with further care and workup. Patient agrees to plan of care. No further questions or concerns noted at this time. Accepted by Dr. Shepherd. - Lab Data Lab results reviewed: Yes I reviewed the patient's lab results. Result diagrams: 01/05/18 23:20 01/05/18 23:20 Lab Results 01/05/18 01/05/18 01/05/18 Range/Units 23:00 23:20 23:20 WBC 8.5 (4.3-11.1) K/mcL RBC 3.90 (3.82-4.97) M/mcL Hgb 11.0 L (11.5-15.4) g/dL Hct 34.8 L (35.3-44.9) % MCV 89.2 (83.0-100.0) fL MCH 28.2 (28.0-33.3) pg MCHC 31.6 (31.6-35.5) g/dL RDW 14.4 (11.5-14.5) % Plt Count 185 (140-400) K/mcL MPV 9.9 (9.4-12.4) fL Immature Gran % 0.6 (0-4) % Seg Neutrophils % 81.6 % Lymphocytes % 7.8 % Monocytes % 9.1 % Eosinophils % 0.2 % Basophils % 0.7 % Neutrophils # 6.9 (1.6-8.9) K/mcL Lymphocytes # 0.7 (0.6-4.6) K/mcL Monocytes # 0.8 (0.0-1.3) K/mcL Eosinophils # 0.0 (0.0-0.6) K/mcL Basophils # 0.1 (0.0-0.2) K/mcL PT 13.8 H (9.4-12.1) Seconds INR 1.3 Sodium (136-145) mEq/L Potassium (3.5-5.1) mEq/L Chloride (98-107) mEq/L Carbon Dioxide (23-29) mEq/L BUN (8-23) mg/dL Creatinine (0.60-1.20) mg/dL Est GFR ( Amer) (> 60) Est GFR (Non-Af Amer) (> 60) BUN/Creatinine Ratio (6-26) Glucose (70-105) mg/dL Calculated Osmolality (280-300) Lactic Acid (0.5-2.2) mmol/L Calcium (8.6-10.3) mg/dL Total Bilirubin (0.3-1.0) mg/dL Direct Bilirubin (0.0-0.2) mg/dL Indirect Bilirubin (0.0-1.2) mg/dL AST (13-39) Units/L ALT (7-52) Units/L Alkaline Phosphatase (34-104) Units/L Troponin I (< 0.04) ng/mL Serum Total Protein (6.4-8.9) g/dL Albumin (3.5-5.7) g/dL Globulin (2.4-3.5) g/dL Albumin/Globulin Ratio (1.1-2.2) Urine Color Dark Yellow (Yellow) Urine Clarity Turbid A (Clear) Urine pH 6.0 (5.0-8.0) pH Units Ur Specific [place] 1.026 H (1.010-1.025) Urine Protein >=1000 H (Neg-Trace) mg/dL Urine Glucose (UA) Normal (Normal) mg/dL Urine Ketones Negative (Negative) mg/dL Urine Blood Moderate H (Negative) Urine Nitrite Negative (Negative) Urine Bilirubin Small H (Negative) Urine Urobilinogen Normal (Normal) mg/dL Ur Leukocyte Esterase Large H (Negative) Urine Microscopic RBC Present (0-3) per hpf Urine Microscopic WBC TNTC H (0-3) per hpf Ur Squamous Epith Cells Many H (None-Few) per lpf Urine Bacteria Many H (None-Few) per hpf Hyaline Casts None Seen (None-Few) per lpf Ur Culture Indicated? NO. (NO) 01/05/18 01/05/18 01/06/18 Range/Units 23:20 23:20 00:24 WBC (4.3-11.1) K/mcL RBC (3.82-4.97) M/mcL Hgb (11.5-15.4) g/dL Hct (35.3-44.9) % MCV (83.0-100.0) fL MCH (28.0-33.3) pg MCHC (31.6-35.5) g/dL RDW (11.5-14.5) % Plt Count (140-400) K/mcL MPV (9.4-12.4) fL Immature Gran % (0-4) % Seg Neutrophils % % Lymphocytes % % Monocytes % % Eosinophils % % Basophils % % Neutrophils # (1.6-8.9) K/mcL Lymphocytes # (0.6-4.6) K/mcL Monocytes # (0.0-1.3) K/mcL Eosinophils # (0.0-0.6) K/mcL Basophils # (0.0-0.2) K/mcL PT (9.4-12.1) Seconds INR Sodium 132 L (136-145) mEq/L Potassium 3.7 (3.5-5.1) mEq/L Chloride 97 L (98-107) mEq/L Carbon Dioxide 26 (23-29) mEq/L BUN 13 (8-23) mg/dL Creatinine 1.47 H (0.60-1.20) mg/dL Est GFR ( Amer) 44 L (> 60) Est GFR (Non-Af Amer) 36 L (> 60) BUN/Creatinine Ratio 9 (6-26) Glucose 295 H (70-105) mg/dL Calculated Osmolality 285 (280-300) Lactic Acid 1.0 0.7 (0.5-2.2) mmol/L Calcium 8.5 L (8.6-10.3) mg/dL Total Bilirubin 0.4 (0.3-1.0) mg/dL Direct Bilirubin 0.2 (0.0-0.2) mg/dL Indirect Bilirubin 0.2 (0.0-1.2) mg/dL AST 44 H (13-39) Units/L ALT 97 H (7-52) Units/L Alkaline Phosphatase 387 H (34-104) Units/L Troponin I 0.03 (< 0.04) ng/mL Serum Total Protein 6.6 (6.4-8.9) g/dL Albumin 3.3 L (3.5-5.7) g/dL Globulin 3.3 (2.4-3.5) g/dL Albumin/Globulin Ratio 1.0 L (1.1-2.2) Urine Color (Yellow) Urine Clarity (Clear) Urine pH (5.0-8.0) pH Units Ur Specific [place] (1.010-1.025) Urine Protein (Neg-Trace) mg/dL Urine Glucose (UA) (Normal) mg/dL Urine Ketones (Negative) mg/dL Urine Blood (Negative) Urine Nitrite (Negative) Urine Bilirubin (Negative) Urine Urobilinogen (Normal) mg/dL Ur Leukocyte Esterase (Negative) Urine Microscopic RBC (0-3) per hpf Urine Microscopic WBC (0-3) per hpf Ur Squamous Epith Cells (None-Few) per lpf Urine Bacteria (None-Few) per hpf Hyaline Casts (None-Few) per lpf Ur Culture Indicated? (NO) - Radiology Data Radiology results reviewed: Yes I reviewed the patient's radiology results. Abdomen/Pelvis CT 01/05/18 22:43 IMPRESSION: Double-J ureteral stent present on the right. No acute disease. D/ / Fernando Shay MD / Fernando Shay MD Interpreting Provider: Fernando Shay MD Chest X-Ray 01/05/18 22:43 IMPRESSION: Mild right basilar airspace disease could represent atelectasis or pneumonia. D/ / Francis Ly MD / Francis Ly MD Interpreting Provider: Francis Ly MD - EKG Data EKG #1 EKG attestation: Yes I reviewed and interpreted this EKG. EKG results narrative: Heart rate 1 16 bpm. Sinus tachycardia. No ST elevation or ST depression noted. No acute changes with the exception of tachycardia from EKG from 2017. No other acute changes noted.
[2018-01-05 23:12] LABS: Bilirubin,Urine Small (Negative); Blood,Urine Moderate (Negative); Clarity,Urine Turbid (Clear); Color,Urine Dark Yellow (Yellow); Glucose,Urine (UA) Normal (Normal); Ketones,Urine Negative (Negative); Leukocyte Esterase,Urine Large (Negative); Nitrite,Urine Negative (Negative); Protein,Urine >=1000 mg/dL (Neg-Trace); Specific Gravity,Urine 1.026 (1.010-1.025); Urobilinogen,Urine Normal (Normal)
[2018-01-05 23:14] LABS: Squamous Epithelial Cell,Urine Many per lpf (None-Few); WBC,Urine TNTC per hpf (0-3)
[2018-01-05 23:29] LABS: Bacteria,Urine Many per hpf (None-Few); Hyaline Casts,Urine None Seen per lpf (None-Few); RBC,Urine Present per hpf (0-3)
[2018-01-05 23:35] LABS: Basophils # 0.1 K/mcL (0.0-0.2); Basophils % 0.7 %; Eosinophils % 0.2 %; Hematocrit 34.8 % (35.3-44.9); Immature Granulocytes % 0.6 % (0-4); Lymphocytes # 0.7 K/mcL (0.6-4.6); Lymphocytes % 7.8 %; Mean Corpuscular HGB Conc 31.6 g/dL (31.6-35.5); Mean Corpuscular Hemoglobin 28.2 pg (28.0-33.3); Mean Corpuscular Volume 89.2 fL (83.0-100.0); Mean Platelet Volume 9.9 fL (9.4-12.4); Monocytes # 0.8 K/mcL (0.0-1.3); Monocytes % 9.1 %; Neutrophils # 6.9 K/mcL (1.6-8.9); Platelet Count 185 K/mcL (140-400); Red Cell Distribution Width 14.4 % (11.5-14.5); Segmented Neutrophils % 81.6 %
[2018-01-05 23:43] LABS: INR 1.3; Prothrombin Time 13.8 Seconds (9.4-12.1)
[2018-01-05 23:57] LABS: Troponin I 0.03 ng/mL (< 0.04)
[2018-01-05 23:58] LABS: Albumin 3.3 g/dL (3.5-5.7); Bilirubin,Direct 0.2 mg/dL (0.0-0.2); Bilirubin,Indirect 0.2 mg/dL (0.0-1.2); Bilirubin,Total 0.4 mg/dL (0.3-1.0); Calcium 8.5 mg/dL (8.6-10.3); Globulin 3.3 g/dL (2.4-3.5); Potassium 3.7 mEq/L (3.5-5.1); Total Protein 6.6 g/dL (6.4-8.9)
--- NOTE | 2018-01-06 01:21 | Internal Med History&Physical ---
<Karolina Simpson - Last Filed: 01/06/18 06:27> Date of Encounter: 01/06/18 Time of Encounter: 01:21 Assessment and Plan (1) Hypervolemia associated with renal insufficiency Status: Acute Hypervolemia likely 2/2 to renal insufficiency. Initially some potential concern for CHF, however history and presentation most consistent with hypervolemia 2/2 to ESRD. Pt dialysis dependent with Hx of patient missing dialysis.CXR additionally did not demonstrate findings consistent with CHF exacerbation of this degree of symptoms. -CBC reviewed, Hgb 11.0 -Recommend urgent dialysis in AM - We will place nephrology on consult in and contact in AM - Sodium restriction of less than 2 g per day - Fluid restriction of 2 L per day by mouth - Patient does not have residual renal function, and will not benefit from volume control with diuretics. - BMP, Ca, P, Intact PTH pending (2) ESRD on hemodialysis Status: Chronic Plan as above. (3) COPD (chronic obstructive pulmonary disease) Status: Chronic Scheduled Duonebs. Continuous pulse ox- with target of 88-92%. Qualifiers: COPD type: chronic bronchitis Chronic bronchitis type: simple Qualified Code(s): J41.0 - Simple chronic bronchitis (4) CAD (coronary artery disease) Status: Acute Continue home medications. Qualifiers: Coronary Disease-Associated Artery/Lesion type: unspecified vessel or lesion type [place] vs. transplanted heart: unspecified whether [place] or transplanted heart Associated angina: without angina Qualified Code(s): I25.10 - Atherosclerotic heart disease of [place] coronary artery without angina pectoris (5) Diabetes mellitus Status: Acute Insulin sliding scale, just as needed. Hypoglycemia protocol ordered, implement as needed. 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 Qualifiers: Esophagitis presence: esophagitis presence not specified Qualified Code(s) : K21.9 - Gastro-esophageal reflux disease without esophagitis (7) CAD (coronary artery disease) Status: Chronic Continue home medications. Qualifiers: Coronary Disease-Associated Artery/Lesion type: [place] artery [place] vs. transplanted heart: [place] heart Associated angina: with unstable angina Qualified Code(s): I25.110 - Atherosclerotic heart disease of [place] coronary artery with unstable angina pectoris (8) DVT prophylaxis Status: Acute Heparin SubQ (9) UTI (urinary tract infection) Status: Acute UA concerning for UTI. UA culture pending. Pharmacy consulted given pt ESRD. Levofloxacin 750 mg IV, with 500 mg q48h Qualifiers: Urinary tract infection type: acute cystitis Hematuria presence: with hematuria Qualified Code(s): N30.01 - Acute cystitis with hematuria (10) DNR (do not resuscitate) Status: Acute Pt clearly stated to resident MD she does not wish CPR or intubation, and would like comfort care in event of arrest. Internal Medicine - H&P: HPI Chief complaint: SOB, Hx of Missed Dialysis Admitted From: Home History of present illness: Ms. Riley is a 62 year old female with oxygen-dependent COPD at 3L and dialysis - dependent end-stage renal disease presenting with shortness of breath with patient endorsing 2 sessions missed over course of past 7 days. Pt states dialysis scheduled Wednesday, however missed last Wednesday and Wednesday due to nausea and diarrhea. Endorses abdominal discomfort with SOB above baseline since missed session. Endorses progressive bilateral LE edema. Pt did attend dialysis this on morning of admission (Wednesday). Diarrhea has resolved. Denies emesis. No hematochezia or hematemesis. No subjective fever or chills. She presented to [facility] on 12/23/17 with complaints of abdominal pain and hyperglycemia on admitting labs. She was discharged home on 12/29/2017 with recommendation for outpatient follow-up. Past Med Surg Social Fam HX - Past Medical History Medical history: COPD, coronary artery disease, CVA, DVT, diabetes, dialysis, GERD, GI bleed, hyperlipidemia, hypertension, peripheral artery disease, other Psychiatric history: anxiety, depression, schizophrenia, previous psychiatric hospitalization, other - Past Surgical History Surgical History: angioplasty/stent, appendectomy, cholecystectomy, coronary bypass (CABG), hysterectomy, knee replacement, other, IVC filter - Social History Smoking Status: Current every day smoker Smokeless Tobacco Status: No Alcohol use: none Drug use: none - Family History Father Family Member Ethnicity: Non- Living Status: Hx Family Cardiac Disorders: Yes (CAD, [place]) Hx Family Cancer: Yes (Polycythemia) Hx Family Endocrine Disorder: Yes (DM) Mother Family Member Ethnicity: Non- Living Status: Still Living Hx Family Respiratory Disorders: Yes (End stage COPD) Brother Family Member Ethnicity: Non- Living Status: Still Living Sister Adopted: No Family Member Ethnicity: Non- Living Status: Still Living Hx Family Cardiac Disorders: Yes Hx Family Respiratory Disorders: No Hx Family Cancer: No Hx Family GI Disorders: No Hx Family Endocrine Disorder: No Hx Family Neuromuscular Disorders: No Hx Family Neurologic Disorders: No Hx Family HEENT Disorders: No Hx Family Autoimmune Disorders: No Internal Medicine - H&P: Meds Omeprazole [PriLOSEC] 20 mg PO DAILY 05/11/15 [History] Colestipol HCl [Colestid] 1 gm PO BID 06/12/15 [History] Carvedilol 12.5 mg PO BID 10/28/15 [History] Calcium Acetate [Phos-LO] 1,334 mg PO TIDWM 09/06/16 [History] Folic Acid/Vit Bcomp,C [Renal Vitamin Tablet] 0.8 mg PO DAILY 04/15/17 [History] ARIPiprazole [Abilify] 10 mg PO DAILY 09/13/17 [History] Aspirin Enteric Coated [Aspirin EC] 81 mg PO DAILY 09/13/17 [History] Budesonide/Formoterol 160/4.5 [Symbicort 160/4.5] 2 puff IH BIDR 09/13/17 [ History] Cholecalciferol (Vitamin D3) [Vitamin D3] 50,000 unit PO TH 09/13/17 [History] OxyCODONE/APAP 10/325 [Percocet 10/325 MG] 1 tab PO Q6H PRN 09/13/17 [History] Sennosides [Senna] 8.6 mg PO BID PRN 09/13/17 [History] Sevelamer [Renvela] 800 mg PO TID 09/13/17 [History] Albuterol Neb [AccuNeb] 0.63 mg IH Q6H PRN 10/18/17 [History] Gabapentin [Neurontin] 100 mg PO TID #60 capsule 10/21/17 [Rx] Collagenase Oint [Santyl] 1 appl TP DAILY 11/11/17 [History] Oxybutynin [Ditropan] 5 mg PO TID 11/11/17 [History] Isosorbide MONOnitrate (24 HR) [Imdur] 30 mg PO DAILY #30 tab.er.24h 11/19/17 [ Rx] Insulin LISPRO [Humalog Kwikpen U-100] 0 unit SQ ACHS 11/25/17 [History] Acetaminophen [Tylenol] 650 mg PO Q6HR PRN tablet 12/14/17 [Rx] Amitriptyline HCl 100 mg PO HS 12/22/17 [History] Morphine Sulfate SR (12 HR) [MS Contin] 30 mg PO Q12HR 12/22/17 [History] Rosuvastatin [Crestor] 10 mg PO HS 12/22/17 [History] amLODIPine [Norvasc] 5 mg PO DAILY 12/30/17 [History] Insulin Glargine,Hum.rec.anlog [Basaglar Kwikpen U-100] 60 unit SQ BID 01/06/18 [History] metOLazone [Zaroxolyn] 2.5 mg PO DAILY 01/06/18 [History] Amoxicillin 500 mg PO QPM #7 tablet 01/13/18 [Rx] Metoclopramide [Reglan] 5 mg PO TIDAC #15 ud.liq 01/13/18 [Rx] Linezolid [Zyvox] 600 mg PO BID #12 tablet 01/21/18 [Rx] predniSONE [PredniSONE] See Taper PO TAPER #20 tablet 01/21/18 [Rx] 3 Allergy/AdvReac Type Severity Reaction Status Date / Time No Known Allergies Allergy Verified 01/06/18 09:30 All Systems PM: A 10-system review of systems was performed and is negative for pertinent findings except as documented above in the HPI. - Constitutional Constitutional: as per HPI - EENT Eyes: as per HPI - Respiratory Respiratory: as per HPI - Genitourinary Additional comments: Pt states she urinates only 1-2 day, with minimal output - Integumentary Additional comments: chronic erythematous bilaterally - Constitutional Vitals: Temp Pulse Resp BP Pulse Ox 99.2 F 119 22 142/64 96 01/05/18 22:43 01/06/18 01:09 01/06/18 01:09 01/06/18 01:09 01/06/18 01:09 General appearance: Present: cooperative, A&O X 3, answers questions appropriately - Head Head exam: Present: atraumatic, normocephalic - Respiratory Respiratory exam: Present: rales (lower lobes ), respiratory distress (mild). Absent: chest wall tenderness, decreased breath sounds Additional comments: intermittent wheezing noted - Cardiovascular Cardiovascular exam: Present: RRR, +S1, +S2 - GI/Abdominal GI/Abdominal exam: Present: soft, tenderness (suprapubic tenderness). Absent: firm, no peritoneal signs - Extremities Exam Additional comments: UE: L: Brachio-brachial AV Graft with good thrill and good bruit, with good augmentation LE: erythematous bilaterally. Pedal Edema b/l. No cyanosis. No calf tenderness. Venous stasis changes. Internal Med - H&P Results - Labs CBC & Chem 7: 01/05/18 23:20 01/06/18 04:57 - Impressions ITS Impressions Abdomen/Pelvis CT 01/05/18 22:43 IMPRESSION: Double-J ureteral stent present on the right. No acute disease. D/ / Fernando Shay MD / Fernando Shay MD Interpreting Provider: Fernando Shay MD Chest X-Ray 01/05/18 22:43 IMPRESSION: Mild right basilar airspace disease could represent atelectasis or pneumonia. D/ / Francis Ly MD / Francis Ly MD Interpreting Provider: Francis Ly MD <Noemy Flores - Last Filed: 01/28/18 08:28> Date of Encounter: 01/06/18 Internal Medicine - H&P: HPI History of present illness: Ms. Riley is a 62 year old female All Systems PM: A 10-system review of systems was performed and is negative for pertinent findings except as documented above in the HPI. - Constitutional Vitals: Temp Pulse Resp BP Pulse Ox 97.6 F 87 16 156/76 98 01/13/18 11:29 01/13/18 11:29 01/13/18 11:29 01/13/18 11:29 01/13/18 11:29 Internal Med - H&P Results - Labs CBC & Chem 7: 01/13/18 03:31 01/13/18 03:31 - Attending Attestation I personally and independently interviewed and examined the patient, and I reviewed the patient's medical record . I am in agreement with the resident's assessment and proposed treatment plan. I discussed my findings and recommendation with the patient and answer all questions. The patient's medical records were edited to accurately reflect this encounter.
--- NOTE | 2018-01-06 01:30 | Emergency Department Note ---
Disposition Clinical Impression: Generalized weakness Nausea & vomiting Qualifiers: Vomiting type: unspecified Vomiting Intractability: non-intractable Qualified Code(s): R11.2 - Nausea with vomiting, unspecified Fluid overload Qualifiers: Hypervolemia type: unspecified Qualified Code(s): E87.70 - Fluid overload, unspecified Acute CHF Qualifiers: Heart failure type: right-sided Qualified Code(s): I50.811 - Acute right heart failure UTI (urinary tract infection) Qualifiers: Urinary tract infection type: acute cystitis Hematuria presence: with hematuria Qualified Code(s): N30.01 - Acute cystitis with hematuria Disposition: Admitted As Inpatient Condition: Undetermined General Adult HPI - General Chief complaint: ED Abdominal Pain Stated complaint: abd pain, nausea Time Seen by Provider: 01/05/18 22:37 Source: patient, EMS Mode of arrival: EMS Limitations: no limitations - History of Present Illness Pain Scale: 6 - Related Data Home Medications Medication Instructions Recorded Confirmed Clopidogrel [Plavix] 75 mg PO DAILY 05/11/15 01/06/18 Omeprazole [PriLOSEC] 20 mg PO DAILY 05/11/15 01/06/18 Colestipol HCl [Colestid] 1 gm PO BID 06/12/15 01/06/18 Carvedilol 12.5 mg PO BID 10/28/15 01/06/18 Calcium Acetate [Phos-LO] 1,334 mg PO TIDWM 09/06/16 01/06/18 Folic Acid/Vit Bcomp,C [Renal 0.8 mg PO DAILY 04/15/17 01/06/18 Vitamin Tablet] ARIPiprazole [Abilify] 10 mg PO DAILY 09/13/17 01/06/18 Aspirin Enteric Coated [Aspirin EC] 81 mg PO DAILY 09/13/17 01/06/18 Budesonide/Formoterol 160/4.5 2 puff IH BIDR 09/13/17 01/06/18 [Symbicort 160/4.5] Cholecalciferol (Vitamin D3) 50,000 unit PO TH 09/13/17 01/06/18 [Vitamin D3] Lidocaine/Prilocaine CREAM [Emla] 1 appl TP AD PRN 09/13/17 01/06/18 OxyCODONE/APAP 10/325 [Percocet 1 tab PO Q6H PRN 09/13/17 01/06/18 10/325 MG] Sennosides [Senna] 8.8 mg PO BID 09/13/17 01/06/18 Sevelamer [Renvela] 800 mg PO TID 09/13/17 01/06/18 Albuterol Neb [AccuNeb] 0.63 mg IH Q6H PRN 10/18/17 01/06/18 Collagenase Oint [Santyl] 1 appl TP DAILY 11/11/17 01/06/18 Oxybutynin [Ditropan] 5 mg PO TID 11/11/17 01/06/18 Insulin LISPRO [Humalog Kwikpen 0 unit SQ ACHS 11/25/17 01/06/18 U-100] Amitriptyline HCl 100 mg PO HS 12/22/17 01/06/18 Insulin DETEMIR [Levemir Flextouch] 20 unit SQ BID 12/22/17 01/06/18 Morphine Sulfate SR (12 HR) [MS 30 mg PO Q12HR 12/22/17 01/06/18 Contin] Rosuvastatin [Crestor] 10 mg PO HS 12/22/17 01/06/18 amLODIPine [Norvasc] 5 mg PO DAILY 12/30/17 01/06/18 Previous Rx's Medication Instructions Recorded Gabapentin [Neurontin] 100 mg PO TID #60 capsule 10/21/17 Isosorbide MONOnitrate (24 HR) 30 mg PO DAILY #30 tab.er.24h 11/19/17 [Imdur] Acetaminophen [Tylenol] 650 mg PO Q6HR PRN tablet 12/14/17 levoFLOXacin [Levaquin] 750 mg PO DAILY #6 tablet 01/03/18 Allergies Allergy/AdvReac Type Severity Reaction Status Date / Time No Known Allergies Allergy Verified 11/24/17 09:01 Constitutional: Denies: fever, chills, weakness ENT ED: Denies: congestion Cardiovascular: Reports: dyspnea on exertion, edema. Denies: chest pain, orthopnea Respiratory: Reports: dyspnea, wheezes. Denies: cough, sputum production Gastrointestinal: Reports: abdominal pain, nausea. Denies: vomiting, diarrhea, constipation, hematemesis, melena, hematochezia Genitourinary: Denies: urgency, dysuria Musculoskeletal: Denies: back pain, neck pain, arthralgia, myalgia Neurological: Denies: headache, weakness, numbness, paresthesias Past Medical History - Past Medical History Medical history: Reports: COPD, coronary artery disease, CVA, DVT, diabetes, dialysis, GERD, GI bleed, hyperlipidemia, hypertension, peripheral artery disease, other Surgical history: Reports: angioplasty/stent, appendectomy, cholecystectomy, coronary bypass (CABG), hysterectomy, knee replacement, other, IVC filter Psychiatric history: Reports: anxiety, depression, schizophrenia, previous psychiatric hospitalization, other 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 - Social History Smoking Status: Current every day smoker Smokeless Tobacco Status: No Alcohol use: Reports: none Drug use: Reports: none Physical Exam - General Limitations: no limitations General appearance: alert, in no apparent distress Course Vital Signs Temperature 99.2 F 01/05/18 22:43 Pulse Rate 116 01/05/18 22:43 Respiratory Rate 22 01/05/18 22:43 Blood Pressure 181/87 01/05/18 22:43 O2 Sat by Pulse Oximetry 94 01/05/18 22:43 Temperature 100.6 F H 01/06/18 01:24 Pulse Rate 119 01/06/18 01:09 Respiratory Rate 22 01/06/18 01:09 Blood Pressure 142/64 01/06/18 01:09 O2 Sat by Pulse Oximetry 96 01/06/18 01:09 Oxygen Delivery Oxygen Delivery Nasal Cannula Medical Decision Making - Lab Data Result diagrams: 01/05/18 23:20 01/05/18 23:20 Lab Results 01/05/18 01/05/18 01/05/18 Range/Units 23:00 23:20 23:20 WBC 8.5 (4.3-11.1) K/mcL RBC 3.90 (3.82-4.97) M/mcL Hgb 11.0 L (11.5-15.4) g/dL Hct 34.8 L (35.3-44.9) % MCV 89.2 (83.0-100.0) fL MCH 28.2 (28.0-33.3) pg MCHC 31.6 (31.6-35.5) g/dL RDW 14.4 (11.5-14.5) % Plt Count 185 (140-400) K/mcL MPV 9.9 (9.4-12.4) fL Immature Gran % 0.6 (0-4) % Seg Neutrophils % 81.6 % Lymphocytes % 7.8 % Monocytes % 9.1 % Eosinophils % 0.2 % Basophils % 0.7 % Neutrophils # 6.9 (1.6-8.9) K/mcL Lymphocytes # 0.7 (0.6-4.6) K/mcL Monocytes # 0.8 (0.0-1.3) K/mcL Eosinophils # 0.0 (0.0-0.6) K/mcL Basophils # 0.1 (0.0-0.2) K/mcL PT 13.8 H (9.4-12.1) Seconds INR 1.3 Sodium (136-145) mEq/L Potassium (3.5-5.1) mEq/L Chloride (98-107) mEq/L Carbon Dioxide (23-29) mEq/L BUN (8-23) mg/dL Creatinine (0.60-1.20) mg/dL Est GFR ( Amer) (> 60) Est GFR (Non-Af Amer) (> 60) BUN/Creatinine Ratio (6-26) Glucose (70-105) mg/dL Calculated Osmolality (280-300) Lactic Acid (0.5-2.2) mmol/L Calcium (8.6-10.3) mg/dL Total Bilirubin (0.3-1.0) mg/dL Direct Bilirubin (0.0-0.2) mg/dL Indirect Bilirubin (0.0-1.2) mg/dL AST (13-39) Units/L ALT (7-52) Units/L Alkaline Phosphatase (34-104) Units/L Troponin I (< 0.04) ng/mL Serum Total Protein (6.4-8.9) g/dL Albumin (3.5-5.7) g/dL Globulin (2.4-3.5) g/dL Albumin/Globulin Ratio (1.1-2.2) Urine Color Dark Yellow (Yellow) Urine Clarity Turbid A (Clear) Urine pH 6.0 (5.0-8.0) pH Units Ur Specific [place] 1.026 H (1.010-1.025) Urine Protein >=1000 H (Neg-Trace) mg/dL Urine Glucose (UA) Normal (Normal) mg/dL Urine Ketones Negative (Negative) mg/dL Urine Blood Moderate H (Negative) Urine Nitrite Negative (Negative) Urine Bilirubin Small H (Negative) Urine Urobilinogen Normal (Normal) mg/dL Ur Leukocyte Esterase Large H (Negative) Urine Microscopic RBC Present (0-3) per hpf Urine Microscopic WBC TNTC H (0-3) per hpf Ur Squamous Epith Cells Many H (None-Few) per lpf Urine Bacteria Many H (None-Few) per hpf Hyaline Casts None Seen (None-Few) per lpf Ur Culture Indicated? NO. (NO) 01/05/18 01/05/18 01/06/18 Range/Units 23:20 23:20 00:24 WBC (4.3-11.1) K/mcL RBC (3.82-4.97) M/mcL Hgb (11.5-15.4) g/dL Hct (35.3-44.9) % MCV (83.0-100.0) fL MCH (28.0-33.3) pg MCHC (31.6-35.5) g/dL RDW (11.5-14.5) % Plt Count (140-400) K/mcL MPV (9.4-12.4) fL Immature Gran % (0-4) % Seg Neutrophils % % Lymphocytes % % Monocytes % % Eosinophils % % Basophils % % Neutrophils # (1.6-8.9) K/mcL Lymphocytes # (0.6-4.6) K/mcL Monocytes # (0.0-1.3) K/mcL Eosinophils # (0.0-0.6) K/mcL Basophils # (0.0-0.2) K/mcL PT (9.4-12.1) Seconds INR Sodium 132 L (136-145) mEq/L Potassium 3.7 (3.5-5.1) mEq/L Chloride 97 L (98-107) mEq/L Carbon Dioxide 26 (23-29) mEq/L BUN 13 (8-23) mg/dL Creatinine 1.47 H (0.60-1.20) mg/dL Est GFR ( Amer) 44 L (> 60) Est GFR (Non-Af Amer) 36 L (> 60) BUN/Creatinine Ratio 9 (6-26) Glucose 295 H (70-105) mg/dL Calculated Osmolality 285 (280-300) Lactic Acid 1.0 0.7 (0.5-2.2) mmol/L Calcium 8.5 L (8.6-10.3) mg/dL Total Bilirubin 0.4 (0.3-1.0) mg/dL Direct Bilirubin 0.2 (0.0-0.2) mg/dL Indirect Bilirubin 0.2 (0.0-1.2) mg/dL AST 44 H (13-39) Units/L ALT 97 H (7-52) Units/L Alkaline Phosphatase 387 H (34-104) Units/L Troponin I 0.03 (< 0.04) ng/mL Serum Total Protein 6.6 (6.4-8.9) g/dL Albumin 3.3 L (3.5-5.7) g/dL Globulin 3.3 (2.4-3.5) g/dL Albumin/Globulin Ratio 1.0 L (1.1-2.2) Urine Color (Yellow) Urine Clarity (Clear) Urine pH (5.0-8.0) pH Units Ur Specific [place] (1.010-1.025) Urine Protein (Neg-Trace) mg/dL Urine Glucose (UA) (Normal) mg/dL Urine Ketones (Negative) mg/dL Urine Blood (Negative) Urine Nitrite (Negative) Urine Bilirubin (Negative) Urine Urobilinogen (Normal) mg/dL Ur Leukocyte Esterase (Negative) Urine Microscopic RBC (0-3) per hpf Urine Microscopic WBC (0-3) per hpf Ur Squamous Epith Cells (None-Few) per lpf Urine Bacteria (None-Few) per hpf Hyaline Casts (None-Few) per lpf Ur Culture Indicated? (NO) Attestation Statement - Attestation Attestation: I, Rommel Mendenhall MD, personally evaluated this patient and discussed their management with the resident physician. I reviewed the resident's note and agree with the documented findings, medical decision making, and plan of care. 62-year-old female presents to the emergency department with a complaint of generalized abdominal pain associated with nausea and vomiting. She has had this for at least the past 3-4 days. She was just discharged from the hospital 3-4 days ago after being admitted for the same complaints. She states they told her it was just a virus. No diarrhea. No melena, hematemesis, or hematochezia. She has felt like she has had fever off and on. On examination patient is a well-developed obese female in no acute distress. She is alert and oriented 3. There is no cyanosis or diaphoresis. Mucous membranes are dry. Breath sounds are clear and equal bilaterally. Heart tachycardic and mildly irregular. Abdomen is soft with mild diffuse tenderness. Bowel sounds present. Labs reviewed. UTI noted. Chest x-ray shows mild right basilar airspace disease which could represent atelectasis or pneumonia. CT the abdomen and pelvis shows no acute abnormality. The hospitalist, Dr. Flores, was consulted and accepted admission of the patient.
[2018-01-06] MEDS ORDERED: Acetaminophen 325 MG TABLET PO ONE (02:20)
[2018-01-06] MEDS ORDERED: D5% in Water 1,000 ML IVC PRN (03:04)
[2018-01-06] MEDS ORDERED: *HR* Dextrose 50 % in Water (Syg) 50 ML SYRINGE IVP PRN (03:04)
[2018-01-06] MEDS ORDERED: Dextrose Gel 15 GM/37.5 ML TUBE PO PRN ×2 (03:04)
[2018-01-06] MEDS ORDERED: Naloxone 0.4 MG/ML INJ IVP PRN (03:07)
[2018-01-06] MEDS ORDERED: Insulin DETEMIR 100 UNIT/ML X5UNITS SQ SCH ×3 (03:15→21:00)
[2018-01-06] MEDS ORDERED: Albuterol Neb 0.63 MG/3 ML VIAL IH PRN (04:26)
[2018-01-06] MEDS ORDERED: Acetaminophen 325 MG TABLET PO PRN (04:26)
[2018-01-06] MEDS: Ipratropium/Albuterol Neb 3 ML IH SCH ×5 (04:32→22:16)
[2018-01-06 05:28] LABS: INR 1.3; Prothrombin Time 14.2 Seconds (9.4-12.1)
[2018-01-06 05:35] LABS: Calcium 8.6 mg/dL (8.6-10.3); Phosphorous 3.7 mg/dL (2.7-4.5); Potassium 3.7 mEq/L (3.5-5.1)
[2018-01-06] MEDS: *HR* Heparin 5,000 UNIT/ML VIAL SQ SCH ×2 (05:54→17:56)
[2018-01-06] MEDS ORDERED: levoFLOXacin 750 MG TABLET PO ONE (07:43)
[2018-01-06] MEDS ORDERED: Ondansetron 4 MG/2 ML VIAL IVP PRN (08:56)
[2018-01-06] MEDS ORDERED: (Colestipol Hcl [Colestid] 1 GM) PO SCH (09:00)
[2018-01-06] MEDS: Renal Vitamin 1 MG CAPSULE PO SCH (09:10)
[2018-01-06] MEDS: Sennosides 8.6 MG TABLET PO SCH ×2 (09:10→20:44)
[2018-01-06] MEDS: Calcium Acetate 667 MG CAPSULE PO SCH ×3 (09:10→16:17)
[2018-01-06] MEDS: Isosorbide MONOnitrate (24 HR) 30 MG TAB.ER.24H PO SCH (09:11)
[2018-01-06] MEDS: Aspirin Enteric Coated 81 MG Tablet PO SCH (09:11)
[2018-01-06] MEDS: amLODIPine 5 MG TABLET PO SCH (09:11)
[2018-01-06] MEDS: ARIPiprazole 10 MG TABLET PO SCH (09:11)
[2018-01-06] MEDS: Gabapentin 100 MG CAPSULE PO SCH ×3 (09:11→20:44)
[2018-01-06] MEDS: Nicotine 21 MG PATCH.TD24 TD SCH (09:14)
[2018-01-06] MEDS: Insulin LISPRO 300 UNITS/3 ML VIAL SQ SCH ×4 (09:15→20:44)
[2018-01-06] MEDS ORDERED: Levofloxacin 750 MG/150 ML 750 MG/150 ML BAG IVPB ONE (10:00)
[2018-01-06] MEDS ORDERED: 0.9 % Sodium Chloride 250 ML IVC PRN (10:03)
--- NOTE | 2018-01-06 10:10 | Nephrology Consult Note ---
Date of Encounter: 01/06/18 Time of Encounter: 10:02 Assessment and Plan (1) ESRD (end stage renal disease) on dialysis Current Visit: No Status: Chronic Plan for HD toay Strict I/[facility] [place] Scr 1.66, GFR 31-very odd; will do a 24 hour urine starting tomorrow morning Continue renal diet Continue fluid restriction Avoid nephrotoxins if possible. (2) Fluid overload Current Visit: Yes Status: Acute Patient has wheezes throughout Continue Duonebs Will do dialysis today to help remove excess fluids Qualifiers: Hypervolemia type: unspecified Qualified Code(s): E87.70 - Fluid overload, unspecified (3) Cellulitis Current Visit: No Status: Acute Bilat lower legs red, warm to touch, painful-more than normal Start Vanco 1gm IV daily; pharmacy to dose Qualifiers: Site of cellulitis: extremity Site of cellulitis of extremity: lower extremity Laterality: right Qualified Code(s): L03.115 - Cellulitis of right lower limb (4) Non-compliance with renal dialysis Current Visit: Yes Status: Acute Grossly non-compliant with her MWF HD treatments History of Present Illness - Reason for Consult Consult date: 01/06/18 - Chief Complaint ESRD on dialysis - History of Present Illness Ms. Riley is a 62 year old female well known to our practice with oxygen- dependent COPD at 3L, diabetes, GERD, GI bleed, HTN, PAD, depression, CAD, and ESRD on HD MWF who presented with shortness of breath. She is grossly non- compliant with HD, frequently only showing up once or twice in a two week period. Patient had recent hospitalization but once she was discharged she continued to No Show for her outpatient HD treatments. Interestingly her kidney function labs are better than they have been in a long time. Past Med Surg Social Fam HX - Past Medical History Medical history: COPD, coronary artery disease, CVA, DVT, diabetes, dialysis, GERD, GI bleed, hyperlipidemia, hypertension, peripheral artery disease, other Psychiatric history: anxiety, depression, schizophrenia, previous psychiatric hospitalization, other - Past Surgical History Surgical History: angioplasty/stent, appendectomy, cholecystectomy, coronary bypass (CABG), hysterectomy, knee replacement, other, IVC filter - Social History Smoking Status: Current every day smoker Smokeless Tobacco Status: No Alcohol use: none Drug use: none - Family History Father Family Member Ethnicity: Non- Living Status: Hx Family Cardiac Disorders: Yes (CAD, [place]) Hx Family Cancer: Yes (Polycythemia) Hx Family Endocrine Disorder: Yes (DM) Mother Family Member Ethnicity: Non- Living Status: Still Living Hx Family Cardiac Disorders: Yes Hx Family Respiratory Disorders: Yes (End stage COPD) Brother Family Member Ethnicity: Non- Living Status: Still Living Hx Family Cardiac Disorders: Yes Hx Family GI Disorders: Yes (dm) Sister Adopted: No Family Member Ethnicity: Non- Living Status: Still Living Hx Family Cardiac Disorders: Yes Hx Family Respiratory Disorders: No Hx Family Cancer: No Hx Family GI Disorders: No Hx Family Endocrine Disorder: No Hx Family Neuromuscular Disorders: No Hx Family Neurologic Disorders: No Hx Family HEENT Disorders: No Hx Family Autoimmune Disorders: No Medications and Allergies Omeprazole [PriLOSEC] 20 mg PO DAILY 05/11/15 [History] Colestipol HCl [Colestid] 1 gm PO BID 06/12/15 [History] Carvedilol 12.5 mg PO BID 10/28/15 [History] Calcium Acetate [Phos-LO] 1,334 mg PO TIDWM 09/06/16 [History] Folic Acid/Vit Bcomp,C [Renal Vitamin Tablet] 0.8 mg PO DAILY 04/15/17 [History] ARIPiprazole [Abilify] 10 mg PO DAILY 09/13/17 [History] Aspirin Enteric Coated [Aspirin EC] 81 mg PO DAILY 09/13/17 [History] Budesonide/Formoterol 160/4.5 [Symbicort 160/4.5] 2 puff IH BIDR 09/13/17 [ History] Cholecalciferol (Vitamin D3) [Vitamin D3] 50,000 unit PO TH 09/13/17 [History] OxyCODONE/APAP 10/325 [Percocet 10/325 MG] 1 tab PO Q6H PRN 09/13/17 [History] Sennosides [Senna] 8.8 mg PO BID 09/13/17 [History] Sevelamer [Renvela] 800 mg PO TID 09/13/17 [History] Albuterol Neb [AccuNeb] 0.63 mg IH Q6H PRN 10/18/17 [History] Gabapentin [Neurontin] 100 mg PO TID #60 capsule 10/21/17 [Rx] Collagenase Oint [Santyl] 1 appl TP DAILY 11/11/17 [History] Oxybutynin [Ditropan] 5 mg PO TID 11/11/17 [History] Isosorbide MONOnitrate (24 HR) [Imdur] 30 mg PO DAILY #30 tab.er.24h 11/19/17 [ Rx] Insulin LISPRO [Humalog Kwikpen U-100] 0 unit SQ ACHS 11/25/17 [History] Acetaminophen [Tylenol] 650 mg PO Q6HR PRN tablet 12/14/17 [Rx] Amitriptyline HCl 100 mg PO HS 12/22/17 [History] Morphine Sulfate SR (12 HR) [MS Contin] 30 mg PO Q12HR 12/22/17 [History] Rosuvastatin [Crestor] 10 mg PO HS 12/22/17 [History] amLODIPine [Norvasc] 5 mg PO DAILY 12/30/17 [History] Insulin Glargine,Hum.rec.anlog [Basaglar Kwikpen U-100] 60 unit SQ BID 01/06/18 [History] metOLazone [Zaroxolyn] 2.5 mg PO DAILY 01/06/18 [History] 3 Allergy/AdvReac Type Severity Reaction Status Date / Time No Known Allergies Allergy Verified 01/06/18 09:30 Review of Systems All Systems: reviewed and no additional remarkable complaints except as stated Constitutional: malaise, weakness, weight gain Cardiovascular: dyspnea, dyspnea on exertion, leg edema, pedal edema Respiratory: dyspnea, wheezing Gastrointestinal: nausea Neurological: no behavioral changes Exam - Vital Signs Vital signs: Initial Vital Signs Temp Pulse Resp BP Pulse Ox 99.2 F 116 22 181/87 94 01/05/18 22:43 01/05/18 22:43 01/05/18 22:43 01/05/18 22:43 01/05/18 22:43 Vital Signs - Last 8 Hours Temp Pulse Resp BP Pulse Ox 01/06/18 09:28 98 01/06/18 07:43 99.2 F 111 16 120/61 98 01/06/18 04:34 16 97 01/06/18 03:53 99.6 F 112 18 164/73 95 Intake and Output 03/01/06/18 01/06/18 23:59 07:59 15:59 Other: Weight 106.367 kg Blood Glucose* 301 Patient Weight 01/06/18 23:59 Weight 106.367 kg - General Appearance General appearance: obese, chronically ill, frail EENT: ATNC, hearing intact, vision intact Neck: supple Respiratory: wheezing (short of breath) Cardiology: edema, normal S1, normal S2 Gastrointestinal: no tenderness, no guarding Integumentary: rash (Bilat lower legs very red, warm to touch), warm and dry Neurologic: alert and oriented x3 Psychiatric: cooperative Results - Lab Results 01/05/18 23:20 01/06/18 04:57 Most recent lab results Calcium 8.6 mg/dL (8.6-10.3) 01/06/18 04:57 Phosphorus 3.7 mg/dL (2.7-4.5) 01/06/18 04:57 Consult Discharge Plan - Plan Referrals: Tristen Quintana MD [Primary Care Provider] -
[2018-01-06] MEDS ORDERED: 0.9 % Sodium Chloride 1,000 ML PRIME SCH (10:15)
[2018-01-06 10:48] LABS: Bilirubin,Urine Negative (Negative); Blood,Urine Moderate (Negative); Clarity,Urine Turbid (Clear); Color,Urine Yellow (Yellow); Glucose,Urine (UA) 100 mg/dL (Normal); Ketones,Urine Negative (Negative); Leukocyte Esterase,Urine Large (Negative); Nitrite,Urine Negative (Negative); Protein,Urine >=1000 mg/dL (Neg-Trace); Specific Gravity,Urine 1.028 (1.010-1.025); Urobilinogen,Urine Normal (Normal)
[2018-01-06 10:56] LABS: Bacteria,Urine Many per hpf (None-Few); Hyaline Casts,Urine None Seen per lpf (None-Few); Squamous Epithelial Cell,Urine Few per lpf (None-Few); WBC,Urine TNTC per hpf (0-3)
[2018-01-06] MEDS ORDERED: 0.9 % Sodium Chloride 1,000 ML ONE (11:30)
[2018-01-06] MEDS ORDERED: Vancomycin 1 EACH in 0.9 % Sodium Chloride 250 ML IVPB PRN (12:00)
--- NOTE | 2018-01-06 12:02 | Event Note ---
Date of Encounter: 01/06/18 Time of Encounter: 11:57 Patient was seen and examined. Admitted overnight by one of my colleagues with abdominal pain and shortness of breath. She missed a couple of dialysis sessions over the last week or so. Recently was discharged with abdominal pain and was treated for cellulitis from what I understand was discharged on doxycycline however I do not see any documentations of that. She reports a cough that is dry. She has a temperature 100.6 here. Cultures have been sent. She is a received a dose of Levaquin. Chest x-ray here shows mild right bibasilar airspace disease possibly pneumonia. The patient has bilateral extremity erythema but I believe those are chronic for her. She also reports that. The patient is being seen by nephrology for dialysis. I will treat the patient for HCAP with IV vancomycin and Zosyn for now. Follow up on cultures. She also has a dirty urine which we are treating. Zosyn should cover. The patient reports abdominal pain that has been going on for some time. The patient's glucose is uncontrolled. I believe part of her symptoms are likely secondary to gastroparesis and I am going to try her on Reglan. A1c was 9.6 back on November 24. She has no acute findings on CT abdomen and pelvis that was done earlier.
[2018-01-06 14:28] LABS: Influenza A PCR Negative (Negative); Influenza B PCR Negative (Negative); Resp. Syncytial Virus PCR Positive (Negative)
[2018-01-06] MEDS: *HR* OxyCODONE/APAP 10/325 TABLET PO PRN ×2 (16:16→22:19)
[2018-01-06] MEDS: Metoclopramide 10 MG/10 ML UD.LIQ PO SCH (16:17)
--- NOTE | 2018-01-06 16:50 | Electrocardiograph Report ---
[address] [address] Test Date: 2018-01-05 Pat Name: Lynnette Riley Department: 103 Room: 2A26 Gender: F Deputy Chief Executive: ROHIT : 1955 Requested By: Héctor Graham Order Number: [id number] Reading MD: Keshav Johnson Measurements Intervals [place] Rate: 116 P: 86 [place]: 145 QRS: 85 QRSD: 86 T: 51 QT: 337 QTc: 406 Interpretive Statements SINUS TACHYCARDIA WITH OCCASIONAL SUPRAVENTRICULAR PREMATURE COMPLEXES Electronically Signed On 01-06-2018 16:49:33 EDT by Keshav Johnson
[2018-01-06] MEDS: Piperacillin/Tazobactam 3.375 GM in 0.9 % Sodium Chloride Mini Bag 100 ML IVPB SCH (17:50)
[2018-01-06] MEDS: Budesonide/Formoterol 160/4.5 MDI IH SCH (22:15)
[2018-01-07] MEDS: Piperacillin/Tazobactam 3.375 GM in 0.9 % Sodium Chloride Mini Bag 100 ML IVPB SCH ×2 (05:07→17:05)
[2018-01-07] MEDS: *HR* Heparin 5,000 UNIT/ML VIAL SQ SCH ×2 (05:08→17:04)
[2018-01-07 05:24] LABS: Basophils % 0.8 %; Eosinophils # 0.2 K/mcL (0.0-0.6); Eosinophils % 3.1 %; Hematocrit 33.5 % (35.3-44.9); Immature Granulocytes % 0.6 % (0-4); Lymphocytes # 0.8 K/mcL (0.6-4.6); Mean Corpuscular HGB Conc 29.9 g/dL (31.6-35.5); Mean Corpuscular Hemoglobin 27.2 pg (28.0-33.3); Mean Platelet Volume 10.2 fL (9.4-12.4); Monocytes # 0.6 K/mcL (0.0-1.3); Monocytes % 11.5 %; Neutrophils # 3.5 K/mcL (1.6-8.9); Platelet Count 140 K/mcL (140-400); Red Blood Count 3.68 M/mcL (3.82-4.97); Red Cell Distribution Width 14.6 % (11.5-14.5)
[2018-01-07 05:26] LABS: Magnesium 1.7 mg/dL (1.6-2.6); Potassium 4.1 mEq/L (3.5-5.1)
[2018-01-07] MEDS ORDERED: Levofloxacin 500 MG/100 ML 500 MG/100 ML BAG IVPB SCH (07:00)
[2018-01-07] MEDS: ARIPiprazole 10 MG TABLET PO SCH (08:27)
[2018-01-07] MEDS: Sennosides 8.6 MG TABLET PO SCH ×2 (08:28→21:43)
[2018-01-07] MEDS: Calcium Acetate 667 MG CAPSULE PO SCH ×3 (08:28→15:59)
[2018-01-07] MEDS: Gabapentin 100 MG CAPSULE PO SCH ×3 (08:28→21:43)
[2018-01-07] MEDS: Aspirin Enteric Coated 81 MG Tablet PO SCH (08:28)
[2018-01-07] MEDS: Renal Vitamin 1 MG CAPSULE PO SCH (08:28)
[2018-01-07] MEDS: Metoclopramide 10 MG/10 ML UD.LIQ PO SCH ×3 (08:29→15:59)
[2018-01-07] MEDS: Insulin LISPRO 300 UNITS/3 ML VIAL SQ SCH ×4 (08:29→21:29)
[2018-01-07] MEDS: Isosorbide MONOnitrate (24 HR) 30 MG TAB.ER.24H PO SCH (08:30)
[2018-01-07] MEDS: Nicotine 21 MG PATCH.TD24 TD SCH (08:30)
[2018-01-07] MEDS: amLODIPine 5 MG TABLET PO SCH (08:30)
[2018-01-07] MEDS: *HR* OxyCODONE/APAP 10/325 TABLET PO PRN ×2 (08:30→21:44)
[2018-01-07] MEDS: Budesonide/Formoterol 160/4.5 MDI IH SCH ×2 (08:43→19:46)
[2018-01-07] MEDS ORDERED: Magnesium Oxide 400 MG TABLET PO ONE (08:45)
--- NOTE | 2018-01-07 08:49 | Internal Med Progress Note ---
Date of Encounter: 01/07/18 Time of Encounter: 08:46 - Assessment and plan (1) Abdominal pain Current Visit: No Status: Acute Assessment and plan: CT abdomen and pelvis is unremarkable. I believe the patient's symptoms are possibly from gastroparesis. I started the patient on Reglan as a trial. We will continue to monitor. Qualifiers: Abdominal location: lower abdomen, unspecified Qualified Code(s): R10.30 - Lower abdominal pain, unspecified (2) HCAP (healthcare-associated pneumonia) Current Visit: No Status: Acute Assessment and plan: Continue vancomycin and Zosyn for now. Follow up on cultures. MAXIMUM TEMPERATURE 100.1. (3) UTI (urinary tract infection) Current Visit: Yes Status: Acute Assessment and plan: Follow up on cultures. Currently on Zosyn. Qualifiers: Urinary tract infection type: acute cystitis Hematuria presence: with hematuria Qualified Code(s): N30.01 - Acute cystitis with hematuria (4) ESRD (end stage renal disease) Current Visit: Yes Status: Acute Assessment and plan: Dialysis per nephrology (5) CAD (coronary artery disease) Current Visit: Yes Status: Acute Assessment and plan: Continue aspirin, Plavix, Coreg. Qualifiers: Coronary Disease-Associated Artery/Lesion type: unspecified vessel or lesion type [place] vs. transplanted heart: unspecified whether [place] or transplanted heart Associated angina: without angina Qualified Code(s): I25.10 - Atherosclerotic heart disease of [place] coronary artery without angina pectoris (6) Diabetes mellitus Current Visit: Yes Status: Acute Assessment and plan: Patient's glucose is labile. I started her on 30 units twice a day. She takes 60 units twice a day. Continue Accu-Cheks. Glucose is okay today. Qualifiers: Diabetes mellitus type: type 2 Diabetes mellitus long-term insulin use: with long-term use Diabetes mellitus complication status: with hyperglycemia Qualified Code(s): E11.65 - Type 2 diabetes mellitus with hyperglycemia; Z79.4 - shelter (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 of insulin; Z79.4 - terminal clerk (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 of insulin; Z79.4 - terminal clerk (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 of insulin; Z79.4 - shelter (current ) use of insulin (7) Pressure ulcer of coccygeal region, stage 3 Current Visit: Yes Status: Acute Assessment and plan: wound consulted and following (8) Pressure ulcer, heel, right, unstageable Current Visit: Yes Status: Acute Assessment and plan: wound consulted (9) DVT prophylaxis Current Visit: Yes Status: Acute Assessment and plan: Heparin subcutaneous - Subjective Interval history: Patient was seen and examined. MAXIMUM TEMPERATURE 100.1. Yesterday had a temperature 100.6. Abdominal pain is somewhat improved. Tolerating diet. Admitted with abdominal pain and shortness of breath. She missed a couple of dialysis sessions over the last week or so. Recently was discharged with abdominal pain and was treated for cellulitis from what I understand was discharged on doxycycline however I do not see any documentations of that. She reports a cough that is dry. Chest x-ray here shows mild right bibasilar airspace disease possibly pneumonia. Being treated for HCAP with IV vancomycin and Zosyn for now. Also being treated for UTI. The patient has bilateral extremity erythema but I believe those are chronic for her. - Constitutional Vitals: Temp Pulse Resp BP Pulse Ox 100.1 F H 112 18 161/77 97 01/07/18 07:58 01/07/18 07:58 01/07/18 07:58 01/07/18 07:58 01/07/18 07:58 General appearance: Present: cooperative, A&O X 3, answers questions appropriately Exam: GEN: NAD CVS: RRR. S1, S2, No m/r/g RESP: Diminished at the bases with coarse breath sounds. ABD: Soft, NT, ND, +BS EXT: 1+ edema. 2+ DP. Bilateral lower extremity with redness/erythema all the way to the knees. Seems chronic. NEURO: Nonfocal Internal Medicine: Result - Labs CBC & Chem 7: 01/07/18 04:37 01/07/18 04:37 Labs: Short CBC 01/07/18 Range/Units 04:37 WBC 5.1 (4.3-11.1) K/mcL Hgb 10.0 L (11.5-15.4) g/dL Hct 33.5 L (35.3-44.9) % Plt Count 140 (140-400) K/mcL Neutrophils # 3.5 (1.6-8.9) K/mcL BMP 01/07/18 04:37 Sodium 132 L Potassium 4.1 Chloride 96 L Carbon Dioxide 31 H BUN 13 Creatinine 2.02 H Glucose 196 H Calcium 9.0 Urine 01/06/18 Range/Units 10:34 Urine Color Yellow (Yellow) Urine Clarity Turbid A (Clear) Urine pH 6.0 (5.0-8.0) pH Units Ur Specific Russell 1.028 H (1.010-1.025) Urine Protein >=1000 H (Neg-Trace) mg/dL Urine Glucose (UA) 100 H (Normal) mg/dL - ABG Interpretation ABG results: PT/INR, D-dimer PT 14.2 Seconds (9.4-12.1) H 01/06/18 04:57 Consult Discharge Plan - Plan Referrals: Tristen Quintana MD [Primary Care Provider] -
[2018-01-07] MEDS ORDERED: Insulin DETEMIR 100 UNIT/ML X5UNITS SQ SCH (09:00)
[2018-01-07] MEDS ORDERED: 0.9 % Sodium Chloride 250 ML IVC PRN (09:19)
[2018-01-07] MEDS ORDERED: 0.9 % Sodium Chloride 1,000 ML PRIME SCH (09:45)
[2018-01-07] MEDS ORDERED: 0.9 % Sodium Chloride 1,000 ML ONE (10:09)
[2018-01-07] MEDS: Insulin DETEMIR 100 UNIT/ML X5UNITS SQ SCH ×2 (10:20→21:43)
--- NOTE | 2018-01-07 13:30 | Nephrology Progress Note ---
Date of Encounter: 01/07/18 Time of Encounter: 12:00 - Assessment and Plan (1) ESRD (end stage renal disease) Current Visit: Yes Status: Acute HD today with UF goal of 3-4kg given rising SCr at 2.02 from 1.66 yesterday Await 24 hr urine for Crcl Lytes WNL UOP not documented (2) Fluid overload Current Visit: Yes Status: Acute UF today and yesterday Fluid restriction advised Qualifiers: Hypervolemia type: unspecified Qualified Code(s): E87.70 - Fluid overload, unspecified Subjective Interval history: Pt seen and examined on HD, interim noted. Pt reports still not feeling great yet. s/p UF yesterday with 3kg fluid removed Objective - Vital Signs Vital signs: Vital Signs Temp Pulse Resp BP Pulse Ox 01/07/18 11:40 99.0 F 95 18 133/77 96 01/07/18 09:01 97 01/07/18 07:58 100.1 F H 112 18 161/77 97 01/07/18 03:44 99.6 F 90 17 120/69 98 01/06/18 22:47 99 F 95 16 125/68 96 01/06/18 22:17 18 95 01/06/18 20:51 98.5 F 92 15 125/75 95 01/06/18 16:28 18 95 01/06/18 15:45 99.5 F 99 15 127/67 94 01/06/18 15:11 97.5 F L 18 127/62 01/06/18 14:45 127/57 01/06/18 14:30 126/61 01/06/18 14:15 123/61 01/06/18 14:00 108/54 01/06/18 13:45 112/55 01/06/18 13:30 125/76 Intake and Output 01/06/18 01/07/18 01/07/18 23:59 07:59 15:59 Intake Total 100 / 100 480 / 480 Output Total 300 / 300 Balance 100 / 100 180 / 180 Intake: IV Fluids 100 / 100 Zosyn 3.375 GM In 0.9 % Sodium 100 / 100 Chloride (Mini-Bag +) 100 ML @ 25 mls/hr IVPB Q12HR NATALIE Rx#: [id number] Oral 0 / 0 480 / 480 Output: Catheter 300 / 300 Other: Meal Breakfast Percent of Meal Consumed 25% Weight 107 kg Blood Glucose* 262 198 222 Patient Weight 01/07/18 23:59 Weight 107 kg - General Appearance General appearance: Present: chronically ill EENT: Present: ATNC, mucous membranes moist Neck: Present: no JVD, supple Respiratory: Present: clear (ant bilat) Cardiology: Present: edema (LE bilat), normal S1, normal S2 Dialysis Vascular Access: Arteriovenous Fistula thrill: Yes bruit: Yes Gastrointestinal: Present: no tenderness, no guarding, obese Integumentary: Present: warm and dry Neurologic: Present: no focal deficit Musculoskeletal: Present: no deformities Psychiatric: Present: mood/affect appropriate, cooperative - Lab 01/08/18 04:55 01/08/18 04:55 Most recent lab results Calcium 9.0 mg/dL (8.6-10.3) 01/07/18 04:37 Phosphorus 3.7 mg/dL (2.7-4.5) 01/06/18 04:57 Magnesium 1.7 mg/dL (1.6-2.6) 01/07/18 04:37 Consult Discharge Plan - Plan Referrals: Tristen Quintana MD [Primary Care Provider] -
[2018-01-07] MEDS ORDERED: Vancomycin 500 MG in 0.9 % Sodium Chloride Mini Bag 100 ML IVPB ONE (18:00)
[2018-01-08 05:45] LABS: Basophils # 0.1 K/mcL (0.0-0.2); Basophils % 0.6 %; Eosinophils # 0.1 K/mcL (0.0-0.6); Eosinophils % 0.8 %; Hemoglobin 10.8 g/dL (11.5-15.4); Immature Granulocytes % 1.7 % (0-4); Lymphocytes # 1.4 K/mcL (0.6-4.6); Lymphocytes % 12.6 %; Mean Corpuscular HGB Conc 30.9 g/dL (31.6-35.5); Mean Corpuscular Volume 90.7 fL (83.0-100.0); Mean Platelet Volume 10.7 fL (9.4-12.4); Monocytes % 8.8 %; Neutrophils # 8.5 K/mcL (1.6-8.9); Nucleated Red Blood Cells 1.2 /100 WBC (0); Platelet Count 137 K/mcL (140-400); Red Blood Count 3.86 M/mcL (3.82-4.97); Red Cell Distribution Width 14.6 % (11.5-14.5); Segmented Neutrophils % 75.5 %
[2018-01-08 05:59] LABS: Magnesium 1.8 mg/dL (1.6-2.6)
[2018-01-08] MEDS: Piperacillin/Tazobactam 3.375 GM in 0.9 % Sodium Chloride Mini Bag 100 ML IVPB SCH (06:08)
[2018-01-08] MEDS: *HR* Heparin 5,000 UNIT/ML VIAL SQ SCH ×2 (06:08→18:34)
[2018-01-08] MEDS: Budesonide/Formoterol 160/4.5 MDI IH SCH ×2 (07:53→21:49)
[2018-01-08] MEDS: Aspirin Enteric Coated 81 MG Tablet PO SCH (08:54)
[2018-01-08] MEDS: Sennosides 8.6 MG TABLET PO SCH ×2 (08:54→22:04)
[2018-01-08] MEDS: Calcium Acetate 667 MG CAPSULE PO SCH ×3 (08:54→17:08)
[2018-01-08] MEDS: ARIPiprazole 10 MG TABLET PO SCH (08:54)
[2018-01-08] MEDS: Renal Vitamin 1 MG CAPSULE PO SCH (08:54)
[2018-01-08] MEDS: Isosorbide MONOnitrate (24 HR) 30 MG TAB.ER.24H PO SCH (08:54)
[2018-01-08] MEDS: Metoclopramide 10 MG/10 ML UD.LIQ PO SCH ×3 (08:54→17:07)
[2018-01-08] MEDS: amLODIPine 5 MG TABLET PO SCH (08:54)
[2018-01-08] MEDS: Gabapentin 100 MG CAPSULE PO SCH ×3 (08:54→21:58)
[2018-01-08] MEDS: Insulin DETEMIR 100 UNIT/ML X5UNITS SQ SCH ×3 (08:55→21:59)
[2018-01-08] MEDS: Nicotine 21 MG PATCH.TD24 TD SCH (08:55)
[2018-01-08] MEDS: Insulin LISPRO 300 UNITS/3 ML VIAL SQ SCH ×4 (08:59→21:57)
--- NOTE | 2018-01-08 09:02 | Internal Med Progress Note ---
Date of Encounter: 01/08/18 Time of Encounter: 09:00 - Assessment and plan (1) Abdominal pain Current Visit: No Status: Acute Assessment and plan: CT abdomen and pelvis is unremarkable. I believe the patient's symptoms are possibly from gastroparesis. Improved with reglan. We will continue to monitor. Qualifiers: Abdominal location: lower abdomen, unspecified Qualified Code(s): R10.30 - Lower abdominal pain, unspecified (2) Acute on chronic respiratory failure with hypoxia Current Visit: Yes Status: Acute Assessment and plan: multifactorial with HCAP and RSV. Treat as below (3) HCAP (healthcare-associated pneumonia) Current Visit: No Status: Acute Assessment and plan: Continue vancomycin and Zosyn for now. Follow up on cultures. MAXIMUM TEMPERATURE 100. + RSV too. (4) UTI (urinary tract infection) Current Visit: Yes Status: Acute Assessment and plan: Follow up on cultures. Still not back. Currently on Zosyn. WBC elevated today. Will monitor Qualifiers: Urinary tract infection type: acute cystitis Hematuria presence: with hematuria Qualified Code(s): N30.01 - Acute cystitis with hematuria (5) ESRD (end stage renal disease) Current Visit: Yes Status: Acute Assessment and plan: Dialysis per nephrology. Neprhology is collecting a 24 hour urine for Crcl (6) CAD (coronary artery disease) Current Visit: Yes Status: Acute Assessment and plan: Continue aspirin, Plavix, Coreg. Qualifiers: Coronary Disease-Associated Artery/Lesion type: unspecified vessel or lesion type [place] vs. transplanted heart: unspecified whether [place] or transplanted heart Associated angina: without angina Qualified Code(s): I25.10 - Atherosclerotic heart disease of [place] coronary artery without angina pectoris (7) Diabetes mellitus Current Visit: Yes Status: Acute Assessment and plan: Patient's glucose is labile. It is 27 this morning on labs but no symptoms. Nursing staff knows her from previous admissions and she tends to go up and down quickly with changes to insulin regimen changes. I started her on 30 units twice a day. She takes 60 units twice a day. Will decrease insulin to 15 units BID. Continue Accu-Cheks. Glucose is okay today. Qualifiers: Diabetes mellitus type: type 2 Diabetes mellitus termite inspector insulin use: with termite inspector use Diabetes mellitus complication status: with hyperglycemia Qualified Code(s): E11.65 - Type 2 diabetes mellitus with hyperglycemia; Z79.4 - truck terminal manager (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 of insulin; Z79.4 - assisted (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 of insulin; Z79.4 - assisted (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 of insulin; Z79.4 - assisted (current ) use of insulin (8) Pressure ulcer of coccygeal region, stage 3 Current Visit: Yes Status: Acute Assessment and plan: wound consulted and following (9) Pressure ulcer, heel, right, unstageable Current Visit: Yes Status: Acute Assessment and plan: wound consulted (10) DVT prophylaxis Current Visit: Yes Status: Acute Assessment and plan: Heparin subcutaneous - Subjective Interval history: Patient was seen and examined. Afebrile last 24 hours. MAXIMUM TEMPERATURE was 100 at 19:41. Mild elevation in white count compared to yesterday. Glucose 27 on BMP but no symptoms. Says her abdominal pain is actually better after starting Reglan. Tolerating diet. Admitted with abdominal pain and shortness of breath. She missed a couple of dialysis sessions over the last week or so. Recently was discharged with abdominal pain and was treated for cellulitis from what I understand was discharged on doxycycline however I do not see any documentations of that. She reports a cough that is dry. Chest x- ray here shows mild right bibasilar airspace disease possibly pneumonia. Being treated for HCAP with IV vancomycin and Zosyn for now. Also being treated for UTI. The patient has bilateral extremity erythema but I believe those are chronic for her. - Constitutional Vitals: Temp Pulse Resp BP Pulse Ox 98.0 F 95 18 128/73 97 01/08/18 06:59 01/08/18 06:59 01/08/18 07:53 01/08/18 06:59 01/08/18 07:53 General appearance: Present: cooperative, A&O X 3, answers questions appropriately Exam: GEN: NAD CVS: RRR. S1, S2, No m/r/g RESP: Diminished at the bases with coarse breath sounds. ABD: Soft, NT, ND, +BS EXT: 1+ edema. 2+ DP. Bilateral lower extremity with redness/erythema all the way to the knees. Seems chronic. NEURO: Nonfocal Internal Medicine: Result - Labs CBC & Chem 7: 01/08/18 04:55 01/08/18 04:55 Labs: Short CBC 01/08/18 Range/Units 04:55 WBC 11.2 H D (4.3-11.1) K/mcL Hgb 10.8 L (11.5-15.4) g/dL Hct 35.0 L (35.3-44.9) % Plt Count 137 L (140-400) K/mcL Neutrophils # 8.5 (1.6-8.9) K/mcL BMP 01/08/18 04:55 Sodium 132 L Potassium 4.0 Chloride 95 L Carbon Dioxide 28 BUN 16 Creatinine 2.04 H Glucose 27 L* Calcium 9.0 - ABG Interpretation ABG results: PT/INR, D-dimer PT 14.2 Seconds (9.4-12.1) H 01/06/18 04:57 Consult Discharge Plan - Plan Referrals: Tristen Quintana MD [Primary Care Provider] -
[2018-01-08] MEDS ORDERED: Aminoglycoside Consult 1 EACH MC ONE (09:36)
--- NOTE | 2018-01-08 09:38 | Event Note ---
Date of Encounter: 01/08/18 Time of Encounter: 09:38 Urine cultures came back growing ESBL and VRE. Stop vanco adn Zosyn and start ertapenem and Linezolid.
[2018-01-08] MEDS ORDERED: Ertapenem 1,000 MG in 0.9 % Sodium Chloride Mini Bag 100 ML IVPB SCH (10:00)
--- NOTE | 2018-01-08 12:29 | Nephrology Progress Note ---
Date of Encounter: 01/08/18 Time of Encounter: 12:00 - Assessment and Plan (1) ESRD (end stage renal disease) Status: Chronic s/p HD yesterday, will monitor Await 24 hr urine for Crcl Lytes WNL except sodium slightly low at 132 due to fluid overload UOP at 300cc in the past 24hrs, will monitor (2) Fluid overload Status: Resolved UF 2 days in a row, will monitor today Continued fluid restriction advised Qualifiers: Hypervolemia type: unspecified Qualified Code(s): E87.70 - Fluid overload, unspecified (3) UTI (urinary tract infection) Status: Acute culture results noted, abx per primary team Qualifiers: Urinary tract infection type: acute cystitis Hematuria presence: with hematuria Qualified Code(s): N30.01 - Acute cystitis with hematuria Subjective Interval history: Pt seen and examined terminated UF early yesterday due to LE cramps Objective - Vital Signs Vital signs: Vital Signs Temp Pulse Resp BP Pulse Ox 01/08/18 11:22 98.2 F 91 18 130/69 96 01/08/18 08:57 95 01/08/18 07:53 18 97 01/08/18 06:59 98.0 F 95 18 128/73 97 01/08/18 03:37 18 93 01/08/18 03:18 98.6 F 100 18 144/91 95 01/07/18 23:40 98.6 F 95 16 99/60 98 01/07/18 19:47 17 97 01/07/18 19:41 100 F H 101 18 122/65 97 01/07/18 16:09 98.9 F 77 18 162/70 93 01/07/18 15:40 97.8 F 20 154/69 01/07/18 15:20 152/78 01/07/18 15:05 149/75 01/07/18 14:50 139/68 01/07/18 14:35 150/66 01/07/18 14:20 135/56 01/07/18 14:05 121/46 01/07/18 13:50 125/57 01/07/18 13:35 110/58 01/07/18 13:20 141/65 01/07/18 13:05 108/64 01/07/18 12:50 147/93 01/07/18 12:35 131/59 Intake and Output 01/07/18 01/08/18 01/08/18 23:59 07:59 15:59 Intake Total 1200 / 1200 240 / 240 340 / 340 Output Total 200 / 200 Balance 1200 / 1200 240 / 240 140 / 140 Intake: IV Fluids 1200 / 1200 100 / 100 Zosyn 3.375 GM In 0.9 % Sodium 200 / 200 100 / 100 Chloride (Mini-Bag +) 100 ML @ 25 mls/hr IVPB Q12HR [facility] Rx#: [id number] 0.9 % Sodium Chloride 1,000 ML 1000 / 1000 @ As Directed PRIME .Q0M [facility] Rx #:[id number] Oral 240 / 240 240 / 240 Output: Urine 200 / 200 Other: Meal Breakfast Percent of Meal Consumed 100% # Voids 0 Weight 103.328 kg Blood Glucose* 124 236 340 Patient Weight 01/08/18 23:59 Weight 103.328 kg - General Appearance General appearance: Present: chronically ill EENT: Present: ATNC, mucous membranes moist Neck: Present: no JVD, supple Respiratory: Present: clear Cardiology: Present: edema, normal S1, normal S2 Dialysis Vascular Access: Arteriovenous Fistula thrill: Yes bruit: Yes Gastrointestinal: Present: no tenderness, no guarding, obese Integumentary: Present: hyperpigmentation, chronic venous stasis Neurologic: Present: no focal deficit Musculoskeletal: Present: no deformities - Lab 01/13/18 03:31 04 03:31 Most recent lab results Calcium 9.0 mg/dL (8.6-10.3) 01/08/18 04:55 Phosphorus 3.7 mg/dL (2.7-4.5) 01/06/18 04:57 Magnesium 1.8 mg/dL (1.6-2.6) 01/08/18 04:55 Consult Discharge Plan - Plan Instructions: Heart Failure (DC) Additional Instructions: Please follow up with your primary care physician within five days after your discharge from the hospital. Please follow up with infectious disease specialist and urology within two to three weeks after your discharge from the hospital. Please follow up with your hemodialysis sessions Wednesday Continue oral Amoxicillin 500mg once daily (evening dose) for seven more days. Continue IV Ertapenem as prescribed. Reglan has been added to your home medications, please inform your primary care physician of this change. Resume all other home medications as prescribed by your primary care physician. Referrals: Tristen Quintana MD [Primary Care Provider] - 01/19/18 2:15 pm (Please follow up as schedule...) Prescriptions: Metoclopramide [Reglan] 5 mg PO TIDAC #15 [email or web address]
[2018-01-08] MEDS ORDERED: levoFLOXacin 500 MG TABLET PO SCH (13:00)
[2018-01-08] MEDS: Ertapenem 1,000 MG in 0.9 % Sodium Chloride Mini Bag 100 ML IVPB SCH (13:45)
[2018-01-08] MEDS: *HR* OxyCODONE/APAP 10/325 TABLET PO PRN (16:58)
[2018-01-08] MEDS ORDERED: Furosemide 40 MG/4 ML VIAL IVP ONE (18:40)
[2018-01-08] MEDS ORDERED: Furosemide 40 MG/4 ML VIAL ONE (18:41)
[2018-01-08] MEDS ORDERED: MOM Conc 10 ML UD.LIQ PO ONE (20:30)
[2018-01-09 04:22] LABS: Basophils % 0.4 %; Eosinophils # 0.2 K/mcL (0.0-0.6); Eosinophils % 2.5 %; Hematocrit 27.8 % (35.3-44.9); Immature Granulocytes % 0.8 % (0-4); Lymphocytes # 1.5 K/mcL (0.6-4.6); Lymphocytes % 18.1 %; Mean Corpuscular HGB Conc 31.3 g/dL (31.6-35.5); Mean Corpuscular Hemoglobin 27.9 pg (28.0-33.3); Mean Corpuscular Volume 89.1 fL (83.0-100.0); Mean Platelet Volume 10.1 fL (9.4-12.4); Monocytes # 0.7 K/mcL (0.0-1.3); Neutrophils # 5.9 K/mcL (1.6-8.9); Nucleated Red Blood Cells 0.6 /100 WBC (0); Platelet Count 111 K/mcL (140-400); Red Blood Count 3.12 M/mcL (3.82-4.97); Red Cell Distribution Width 14.8 % (11.5-14.5); Segmented Neutrophils % 70.2 %
[2018-01-09 04:26] LABS: Hemoglobin 8.7 g/dL (11.5-15.4)
[2018-01-09 04:32] LABS: Calcium 8.3 mg/dL (8.6-10.3); Magnesium 1.7 mg/dL (1.6-2.6)
[2018-01-09] MEDS: *HR* Heparin 5,000 UNIT/ML VIAL SQ SCH ×2 (05:16→17:22)
[2018-01-09] MEDS: Insulin LISPRO 300 UNITS/3 ML VIAL SQ SCH ×4 (08:49→21:33)
[2018-01-09] MEDS: Furosemide 40 MG TABLET PO SCH ×2 (09:08→17:22)
[2018-01-09] MEDS: Isosorbide MONOnitrate (24 HR) 30 MG TAB.ER.24H PO SCH (09:08)
[2018-01-09] MEDS: Aspirin Enteric Coated 81 MG Tablet PO SCH (09:08)
[2018-01-09] MEDS: Gabapentin 100 MG CAPSULE PO SCH ×3 (09:08→23:11)
[2018-01-09] MEDS: Calcium Acetate 667 MG CAPSULE PO SCH ×3 (09:09→17:21)
[2018-01-09] MEDS: metOLazone 2.5 MG TABLET PO SCH (09:09)
[2018-01-09] MEDS: Sennosides 8.6 MG TABLET PO SCH ×2 (09:09→23:11)
[2018-01-09] MEDS: ARIPiprazole 10 MG TABLET PO SCH (09:09)
[2018-01-09] MEDS: amLODIPine 5 MG TABLET PO SCH (09:09)
[2018-01-09] MEDS: Renal Vitamin 1 MG CAPSULE PO SCH (09:09)
[2018-01-09] MEDS: Insulin DETEMIR 100 UNIT/ML X5UNITS SQ SCH ×2 (09:09→23:12)
[2018-01-09] MEDS: Ertapenem 1,000 MG in 0.9 % Sodium Chloride Mini Bag 100 ML IVPB SCH (09:10)
[2018-01-09] MEDS: Metoclopramide 10 MG/10 ML UD.LIQ PO SCH ×3 (09:10→17:23)
[2018-01-09] MEDS: Nicotine 21 MG PATCH.TD24 TD SCH (09:12)
[2018-01-09 09:37] LABS: Hematocrit 28.6 % (35.3-44.9); Hemoglobin 9.1 g/dL (11.5-15.4)
[2018-01-09] MEDS: *HR* OxyCODONE/APAP 10/325 TABLET PO PRN (09:42)
[2018-01-09] MEDS: Budesonide/Formoterol 160/4.5 MDI IH SCH ×2 (10:59→20:00)
[2018-01-09 11:34] LABS: Total Volume 24 Hour,Urine 0.19 Liters (0.60-1.60)
[2018-01-09 11:39] LABS: Total Volume 24 Hour,Urine 0.19 Liters (0.60-1.60)
--- NOTE | 2018-01-09 13:14 | Nephrology Progress Note ---
Date of Encounter: 01/09/18 Time of Encounter: 12:00 - Assessment and Plan (1) ESRD (end stage renal disease) Status: Chronic Next HD tomorrow 24 hr urine for Crcl showed very low urine volume and crcl of 6 Lytes WNL except sodium slightly low due to fluid overload UOP at 450cc in the past 24hrs, will monitor (2) Fluid overload Status: Resolved UF 2 days in a round, will monitor today Continued fluid restriction advised Qualifiers: Hypervolemia type: unspecified Qualified Code(s): E87.70 - Fluid overload, unspecified (3) UTI (urinary tract infection) Status: Acute culture results noted, abx per primary team Qualifiers: Urinary tract infection type: acute cystitis Hematuria presence: with hematuria Qualified Code(s): N30.01 - Acute cystitis with hematuria Subjective Interval history: Pt seen and examined sitting up in chair eating lunch. No family or friends at bedside. Does not feel well today Objective - Vital Signs Vital signs: Vital Signs Temp Pulse Resp BP Pulse Ox 01/09/18 11:44 98.1 F 81 16 115/68 100 01/09/18 10:59 18 98 01/09/18 07:40 98.4 F 88 16 139/75 100 01/09/18 04:26 98.8 F 88 18 139/71 97 01/08/18 23:49 99.0 F 85 18 132/72 97 01/08/18 21:49 17 95 01/08/18 19:33 99.6 F 98 18 138/68 92 01/08/18 15:50 98.3 F 99 18 169/70 96 Intake and Output 01/08/18 01/09/18 01/09/18 23:59 07:59 15:59 Intake Total 300 / 300 540 / 540 480 / 480 Output Total 250 / 250 500 / 500 Balance 50 / 50 40 / 40 480 / 480 Intake: IV Fluids 300 / 300 300 / 300 Zyvox Premix 600mg/300mL 600 mg 300 / 300 300 / 300 In 300 ml @ 150 mls/hr IVPB Q12H [facility] Rx#:[id number] Oral 240 / 240 480 / 480 Output: Catheter 250 / 250 500 / 500 Other: Meal Breakfast Percent of Meal Consumed 50% Weight 111.7 kg Blood Glucose* 208 134 172 Patient Weight 01/09/18 23:59 Weight 111.7 kg - General Appearance General appearance: Present: chronically ill EENT: Present: ATNC, mucous membranes moist Neck: Present: no JVD, supple Respiratory: Present: clear Cardiology: Present: edema, normal S1, normal S2 Dialysis Vascular Access: Arteriovenous Fistula thrill: Yes bruit: Yes Gastrointestinal: Present: no tenderness, no guarding, obese Integumentary: Present: warm and dry Neurologic: Present: no focal deficit Musculoskeletal: Present: no deformities Psychiatric: Present: mood/affect appropriate - Lab 01/13/18 03:31 01/13/18 03:31 Most recent lab results Calcium 8.3 mg/dL (8.6-10.3) L 01/09/18 04:05 Phosphorus 3.7 mg/dL (2.7-4.5) 01/06/18 04:57 Magnesium 1.7 mg/dL (1.6-2.6) 01/09/18 04:05 Urine Creatinine 100 mg/dL 01/08/18 08:05 Consult Discharge Plan - Plan Instructions: Heart Failure (DC) Additional Instructions: Please follow up with your primary care physician within five days after your discharge from the hospital. Please follow up with infectious disease specialist and urology within two to three weeks after your discharge from the hospital. Please follow up with your hemodialysis sessions Wednesday Continue oral Amoxicillin 500mg once daily (evening dose) for seven more days. Continue IV Ertapenem as prescribed. Reglan has been added to your home medications, please inform your primary care physician of this change. Resume all other home medications as prescribed by your primary care physician. Referrals: Tristen Quintana MD [Primary Care Provider] - 01/19/18 2:15 pm (Please follow up as schedule...) Prescriptions: Metoclopramide [Reglan] 5 mg PO TIDAC #15 [email or web address]
[2018-01-09 15:07] LABS: Protein/Creatinine Ratio,Urine 7.3 mg/mg (0.00-0.20)
--- NOTE | 2018-01-09 16:09 | Internal Med Progress Note ---
Date of Encounter: 01/09/18 Time of Encounter: 13:18 - Subjective Interval history: Pt seen and examined at bedside. Resting in bed and denies any discomfort. Pt continues to remain noncompliant with her dialysis appointments and refuses ECF care upon discharge. - Assessment and plan (1) Abdominal pain Current Visit: No Status: Acute Assessment and plan: Improved from previous day continue reglan Qualifiers: Abdominal location: lower abdomen, unspecified Qualified Code(s): R10.30 - Lower abdominal pain, unspecified (2) Acute on chronic respiratory failure with hypoxia Current Visit: Yes Status: Acute Assessment and plan: multifactorial with HCAP and RSV. Treat as below (3) HCAP (healthcare-associated pneumonia) Current Visit: No Status: Acute Assessment and plan: Switched to Linezolid and Ertapenem given culture sensitivities from the urine cultures (4) UTI (urinary tract infection) Current Visit: Yes Status: Acute Assessment and plan: urine cultures positive for E. Coli ESBL and Enterococcus species VRE, abx adjusted as per culture sensitivities Qualifiers: Urinary tract infection type: acute cystitis Hematuria presence: with hematuria Qualified Code(s): N30.01 - Acute cystitis with hematuria (5) ESRD (end stage renal disease) Current Visit: Yes Status: Acute Assessment and plan: Dialysis per nephrology. HD in am Nephrology evaluation appreciated (6) CAD (coronary artery disease) Current Visit: Yes Status: Acute Assessment and plan: Continue aspirin, Plavix, Coreg. Qualifiers: Coronary Disease-Associated Artery/Lesion type: unspecified vessel or lesion type [place] vs. transplanted heart: unspecified whether [place] or transplanted heart Associated angina: without angina Qualified Code(s): I25.10 - Atherosclerotic heart disease of [place] coronary artery without angina pectoris (7) Diabetes mellitus Current Visit: Yes Status: Acute Assessment and plan: BG better controlled with Levemir 15units BID Continue Accu-Cheks. sliding scale insulin algorithm as needed ADA diet Qualifiers: Diabetes mellitus type: type 2 Diabetes mellitus senior care insulin use: with senior care use Diabetes mellitus complication status: with hyperglycemia Qualified Code(s): E11.65 - Type 2 diabetes mellitus with hyperglycemia; Z79.4 - shelter (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 of insulin; Z79.4 - long term care pharmacist (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 of insulin; Z79.4 - shelter (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 of insulin; Z79.4 - long term care pharmacist (current ) use of insulin (8) Pressure ulcer of coccygeal region, stage 3 Current Visit: Yes Status: Acute Assessment and plan: wound consulted and following (9) Pressure ulcer, heel, right, unstageable Current Visit: Yes Status: Acute Assessment and plan: wound consulted (10) DVT prophylaxis Current Visit: Yes Status: Acute Assessment and plan: Heparin subcutaneous - Constitutional Vitals: Temp Pulse Resp BP Pulse Ox 98.1 F 81 16 115/68 100 01/09/18 11:44 01/09/18 11:44 01/09/18 11:44 01/09/18 11:44 01/09/18 11:44 General appearance: Present: A&O X 3, no acute distress, obese, answers questions appropriately - Head Head exam: Present: atraumatic, normocephalic - Eye Eye exam: Present: conjuntiva pink, sclera anicteric - Respiratory Respiratory exam: Absent: respiratory distress, wheezes (coarse breath sounds diffusely ) - Cardiovascular Cardiovascular exam: Present: RRR, +S1, +S2. Absent: diastolic murmur, gallop, rubs, systolic murmur - GI/Abdominal GI/Abdominal exam: Present: normal bowel sounds, soft, no peritoneal signs. Absent: distended, tenderness - Extremities Exam Extremities exam: Present: warm, radial pulses palpable and symmetrical. Absent : calf tenderness - Neurological Exam Neurological exam: Present: alert, oriented X3 - Psychiatric Psychiatric exam: Present: normal affect, normal mood Internal Medicine: Result - Labs CBC & Chem 7: 01/09/18 09:15 01/09/18 04:05 Labs: Short CBC 01/09/18 01/09/18 Range/Units 04:05 09:15 WBC 8.4 (4.3-11.1) K/mcL Hgb 8.7 L D 9.1 L (11.5-15.4) g/dL Hct 27.8 L 28.6 L (35.3-44.9) % Plt Count 111 L (140-400) K/mcL Neutrophils # 5.9 (1.6-8.9) K/mcL BMP 01/09/18 04:05 Sodium 128 L Potassium 4.0 Chloride 93 L Carbon Dioxide 28 BUN 29 H Creatinine 2.64 H Glucose 146 H Calcium 8.3 L - ABG Interpretation ABG results: PT/INR, D-dimer PT 14.2 Seconds (9.4-12.1) H 01/06/18 04:57 Consult Discharge Plan - Plan Referrals: Tristen Quintana MD [Primary Care Provider] -
[2018-01-10 05:46] LABS: Basophils % 0.3 %; Eosinophils # 0.2 K/mcL (0.0-0.6); Hematocrit 26.5 % (35.3-44.9); Hemoglobin 8.3 g/dL (11.5-15.4); Immature Granulocytes % 0.5 % (0-4); Lymphocytes # 1.4 K/mcL (0.6-4.6); Lymphocytes % 11.9 %; Mean Corpuscular HGB Conc 31.3 g/dL (31.6-35.5); Mean Corpuscular Hemoglobin 27.6 pg (28.0-33.3); Mean Platelet Volume 10.8 fL (9.4-12.4); Monocytes # 0.7 K/mcL (0.0-1.3); Monocytes % 5.8 %; Neutrophils # 9.3 K/mcL (1.6-8.9); Platelet Count 110 K/mcL (140-400); Red Blood Count 3.01 M/mcL (3.82-4.97); Red Cell Distribution Width 14.7 % (11.5-14.5); Segmented Neutrophils % 79.5 %
[2018-01-10 06:03] LABS: Calcium 8.3 mg/dL (8.6-10.3); Magnesium 1.7 mg/dL (1.6-2.6); Phosphorous 4.6 mg/dL (2.7-4.5); Potassium 4.4 mEq/L (3.5-5.1)
[2018-01-10] MEDS: *HR* Heparin 5,000 UNIT/ML VIAL SQ SCH ×2 (06:55→17:18)
[2018-01-10] MEDS ORDERED: 0.9 % Sodium Chloride 2,000 ML ONE (07:41)
[2018-01-10] MEDS: Budesonide/Formoterol 160/4.5 MDI IH SCH ×2 (07:46→22:03)
[2018-01-10] MEDS ORDERED: 0.9 % Sodium Chloride 250 ML IVC PRN (08:30)
[2018-01-10] MEDS ORDERED: 0.9 % Sodium Chloride 1,000 ML PRIME SCH (08:30)
[2018-01-10] MEDS: Metoclopramide 10 MG/10 ML UD.LIQ PO SCH ×3 (09:28→15:43)
[2018-01-10] MEDS: Calcium Acetate 667 MG CAPSULE PO SCH ×3 (09:29→17:18)
[2018-01-10] MEDS: Furosemide 40 MG TABLET PO SCH ×2 (09:29→15:43)
--- NOTE | 2018-01-10 09:29 | Infectious Disease Consult ---
Date of Encounter: 01/10/18 Time of Encounter: 08:20 Assessment and Plan (1) RSV (respiratory syncytial virus pneumonia) Status: Acute Assessment and plan: Viral PCR positive for RSV - Likely contributing to increased shortness of breath, low-grade fever and tachycardia. 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 Most recently urine culture in June 2018 positive for vancomycin-resistant enterococcus and ESBL - Previous organisms demonstrate Masha tropicalis, E.coli MDRO, Klebsiella pneumoniae, Proteus mirablis ESBL Current antibiotic coverage: Zyvox and ertapenem (day 3) Qualifiers: Urinary tract infection type: acute cystitis Hematuria presence: with hematuria Qualified Code(s): N30.01 - Acute cystitis with hematuria (4) ESRD on hemodialysis Status: Chronic Assessment and plan: Management per nephrology and primary team. (5) Venous stasis dermatitis of both lower extremities Status: Chronic Assessment and plan: Bilateral lower extremity venous stasis (6) Decubitus ulcer of sacral region, stage 3 Status: Chronic (7) Decubitus ulcer, heel, right, unstageable Status: Acute (8) CHF exacerbation Status: Acute Qualifiers: Heart failure type: unspecified Qualified Code(s): I50.9 - Heart failure, unspecified (9) Thrombocytopenia Status: Acute Assessment and plan: Patient demonstrates worsening of thrombocytopenia after initiation of Zyvox. - We will adjust antibiotic coverage from Zyvox as this increases the risk of further thrombocytopenia complications. - Zyvox with combination of SSRIs also increases the risk of serotonin syndrome. Infectious Disease HPI - Data of Consult Consult date: 01/09/18 Requesting Physician: Cecilia Velasquez MD Primary Care Provider: Tristen Quintana MD - Consult Narrative Reason for consult: Recurrent UTI treatment History of present illness: Patient presented to the emergency department on 01/05 with nausea and worsening of abdominal pain. Infectious Diseases consult placed for recurrent UTI management on 01/09/18. Ms. Riley 62yo F past medical hx of COPD, CAD, CABG, Stents, DM, DVTs with current IVC filter, HTN, ESRD on dialysis since 05/26, recurrent UTI with MDR organisms started having abdominal pain, diarrhea and nausea 3 days prior to presenting to the emergency department. She states that the symptoms started on gradual and steadly worsened. She missed two days of dialysis do to her symptoms. She states she had a low grade fever which she checked with a thermometer at home and had a reading of 99.8. She says during this time she had worsening fatigue, cough without sputum production and worsening of her shortness of breath. She has baseline SOB and wears 3L NC oxygen 03/05. With the progression in her symptoms she presented to the emergency department for evaluation. In the emergency department she was found to have a fever around 100.6, tachycardia, tachypnea, and hypertension. Her oxygen saturation was at baseline. CXR demonstrates bibasilar atelectasis and CT of the abdomen demonstrated Double-J ureteral stent present in appropriate position right renal pelvis to bladder, IVC filter present below the level of the renal veins. Initial labs demonstrated hyperglycemia, elevated alkaline phosphatase 387, elevated AST 44, ALT 97. Urinalysis was abnormal with turbid dark yellow urine, with elevated specific gravity, urine protein >1000, moderate urine blood , small urine bilirubin, larege Leuk esterase and WBC TNTCwith many squamous cells and bacteria. Initial urinalysis was not sent for culture. She was originally treated for fluid overload and admitted to the hospitalist team. She was given a dose of Levaquin for her UTI. Repeat labs in the am were similar and a repeat urinalysis was collected and sent for culture. With her findings of Shortness of breath, fever, tachycardia and tachypnea there was concerns for HAP, she was started on Vancomycin and Zosyn, Levaquin was stopped as Zosyn was started and suspected coverage for UTI. RSV PCR came back positive , Influenza swab and PCR were negative. Blood cultures x2 were collected and have preliminary no growth. Abdominal pain was suspected to be secondary to gastroparesis and she was started on Reglan. She was seen by Nephrology and dialysis has been resumed inpatient. Urine cultures came back on 01/08 demonstrating + for VRE (sensitive to Linezolid and Ampicillin) and E. coli ESBL (sensitive to Ertapenem and Nitro). Upon evaluation she is resting comfortably in dialysis. Patient is afebrile and has been for last 24 hours with temperature high of 100.6 since admission. Heart rate appropriate tachycardia has resolved for greater than 48 hours. Patient does have mild elevation and respiratory rate has been without tachypnea for over 24 hours. Significant lab results demonstrated WBC of 11.6, normocytic anemia with mild drop in hemoglobin from 10-8.3, thrombocytopenia with platelet count of 110, hyponatremia with sodium 125 drop from 132, hyperglycemia. She states that she feels rough but improved compared to admission. On admission she says she was having diarrhea, abdominal pain and SOB. She says her diarrhea has resolved. She is no longer feverish and her shortness of breath is improving which she thinks may be from dialysis. She continues to have abdominal discomfort more so to palpation, and improvement in her nausea without any vomiting. She she denies any other significant events since admission. She believes the diarrhea was the preceding events which led to her missing dialysis. CC: Cecilia Velasquez MD Past Med Surg Social Fam HX - Past Medical History Medical history: COPD, coronary artery disease, CVA, DVT, diabetes, dialysis, GERD, GI bleed, hyperlipidemia, hypertension, peripheral artery disease, other Psychiatric history: anxiety, depression, schizophrenia, previous psychiatric hospitalization, other - Past Surgical History Surgical History: angioplasty/stent, appendectomy, cholecystectomy, coronary bypass (CABG), hysterectomy, knee replacement, other, IVC filter - Social History Smoking Status: Current every day smoker Smokeless Tobacco Status: No Alcohol use: none Drug use: none - Family History Father Family Member Ethnicity: Non- Living Status: Hx Family Cardiac Disorders: Yes (CAD, [place]) Hx Family Cancer: Yes (Polycythemia) Hx Family Endocrine Disorder: Yes (DM) Mother Family Member Ethnicity: Non- Living Status: Still Living Hx Family Cardiac Disorders: Yes Hx Family Respiratory Disorders: Yes (End stage COPD) Brother Family Member Ethnicity: Non- Living Status: Still Living Hx Family Cardiac Disorders: Yes Hx Family GI Disorders: Yes (dm) Sister Adopted: No Family Member Ethnicity: Non- Living Status: Still Living Hx Family Cardiac Disorders: Yes Hx Family Respiratory Disorders: No Hx Family Cancer: No Hx Family GI Disorders: No Hx Family Endocrine Disorder: No Hx Family Neuromuscular Disorders: No Hx Family Neurologic Disorders: No Hx Family HEENT Disorders: No Hx Family Autoimmune Disorders: No Infectious Disease-CN:Meds Omeprazole [PriLOSEC] 20 mg PO DAILY 05/11/15 [History] Colestipol HCl [Colestid] 1 gm PO BID 06/12/15 [History] Carvedilol 12.5 mg PO BID 10/28/15 [History] Calcium Acetate [Phos-LO] 1,334 mg PO TIDWM 09/06/16 [History] Folic Acid/Vit Bcomp,C [Renal Vitamin Tablet] 0.8 mg PO DAILY 04/15/17 [History] ARIPiprazole [Abilify] 10 mg PO DAILY 09/13/17 [History] Aspirin Enteric Coated [Aspirin EC] 81 mg PO DAILY 09/13/17 [History] Budesonide/Formoterol 160/4.5 [Symbicort 160/4.5] 2 puff IH BIDR 09/13/17 [ History] Cholecalciferol (Vitamin D3) [Vitamin D3] 50,000 unit PO TH 09/13/17 [History] OxyCODONE/APAP 10/325 [Percocet 10/325 MG] 1 tab PO Q6H PRN 09/13/17 [History] Sennosides [Senna] 8.8 mg PO BID 09/13/17 [History] Sevelamer [Renvela] 800 mg PO TID 09/13/17 [History] Albuterol Neb [AccuNeb] 0.63 mg IH Q6H PRN 10/18/17 [History] Gabapentin [Neurontin] 100 mg PO TID #60 capsule 10/21/17 [Rx] Collagenase Oint [Santyl] 1 appl TP DAILY 11/11/17 [History] Oxybutynin [Ditropan] 5 mg PO TID 11/11/17 [History] Isosorbide MONOnitrate (24 HR) [Imdur] 30 mg PO DAILY #30 tab.er.24h 11/19/17 [ Rx] Insulin LISPRO [Humalog Kwikpen U-100] 0 unit SQ ACHS 11/25/17 [History] Acetaminophen [Tylenol] 650 mg PO Q6HR PRN tablet 12/14/17 [Rx] Amitriptyline HCl 100 mg PO HS 12/22/17 [History] Morphine Sulfate SR (12 HR) [MS Contin] 30 mg PO Q12HR 12/22/17 [History] Rosuvastatin [Crestor] 10 mg PO HS 12/22/17 [History] amLODIPine [Norvasc] 5 mg PO DAILY 12/30/17 [History] Insulin Glargine,Hum.rec.anlog [Basaglar Kwikpen U-100] 60 unit SQ BID 01/06/18 [History] metOLazone [Zaroxolyn] 2.5 mg PO DAILY 01/06/18 [History] 3 Allergy/AdvReac Type Severity Reaction Status Date / Time No Known Allergies Allergy Verified 01/06/18 09:30 - Constitutional Constitutional: Present: fatigue, fever(s), headache(s), weakness - EENT Eyes: Absent: blurry vision, diplopia Nose, mouth and throat: Absent: dizziness, sore throat - Cardiovascular Cardiovascular: Absent: chest pain, radiating pain, rapid heart rate, slow heart rate, syncope - Respiratory Respiratory: Present: dyspnea - Gastrointestinal Gastrointestinal: Present: abdominal pain, diarrhea, nausea. Absent: vomiting - Genitourinary Genitourinary: Present: urinary hesitancy. Absent: dysuria, urinary incontinence, urinary urgency - Musculoskeletal Musculoskeletal: Present: muscle weakness Exam - Constitutional Vitals: Temp Pulse Resp BP Pulse Ox 98.8 F 94 16 131/68 97 01/10/18 07:02 01/10/18 07:02 01/10/18 07:46 01/10/18 07:02 01/10/18 07:46 Exam: General: Patient alert, awake, oriented 3, interactive, in no acute distress HEENT: Normocephalic, atraumatic, pupils equal reactive to light, oral mucosa dry, neck supple trachea midline no palpable lymphadenopathy, Chest: Symmetric bilateral correlating with respiratory effort, effort nonlabored. Cardiac: Regular rate and rhythm, positive S1 and S2. no bruits appreciated bilateral carotids, Radial pulses 2+ bilateral, posterior tibial and dorsal pedal pulses 2+ bilateral. Respiratory: Diffuse inspiration rate rhonchi in all lung tran Abdomen: Soft, obese, bruising of the abdominal wall likely secondary to heparin injections, diffuse tenderness more so on the right flank and right quadrant. positive bowel sounds, no palpable masses appreciated on examination Extremities: Symmetric bilateral, bilateral lower extremity edema 1+ pitting, bilateral venous stasis, right heel pressure ulcer, coccygeal stage III decubitus ulcer, bilateral knee replacements (right side 2004, left side 2010) Neurologic: Face symmetric, muscle strength symmetric bilateral upper and lower extremities. Infectious Disease CN: Results - Labs CBC & Chem 7: 01/10/18 04:52 01/10/18 04:52 Consult Discharge Plan - Plan Referrals: Tristen Quintana MD [Primary Care Provider] - (web request sent on 01/10/18) - Attending Attestation patient is a 62 year old woman known to our service with past medical history mentioned below including ESRD on dialysis. Patient had abdominal pain, diarrhea and nausea 3 days prior to admission. Symptoms with gradual onset that got progressively worse. Temp at home was 99.8 orally. She also had fatigue, cough, abdominal pain and shortness of breath that is worse than her baseline. Since admission, patient was febrile, tachycardic and presenting WBC of 8.5 and is up today to 11.6. RSV was positive by PCR and negative flu, Urine culture revealed VRE that is amp sensitive and E Coli ESBL Patient also had imaging which revealed Mild right basilar airspace disease could represent atelectasis or pneumonia. CT abdomen was positive for Double-J ureteral stent present on the right. No acute disease. Patient was started on zyvox and ertapenem Recommendations: d/c zyvox (pt on reglan and amitriptyline) and has thrombocytopenia continue ertapanem
[2018-01-10] MEDS: Nicotine 21 MG PATCH.TD24 TD SCH (09:30)
[2018-01-10] MEDS: Insulin LISPRO 300 UNITS/3 ML VIAL SQ SCH ×4 (09:42→22:48)
[2018-01-10] MEDS: Gabapentin 100 MG CAPSULE PO SCH ×3 (09:43→22:25)
[2018-01-10] MEDS: Ertapenem 1,000 MG in 0.9 % Sodium Chloride Mini Bag 100 ML IVPB SCH (10:26)
[2018-01-10] MEDS: *HR* OxyCODONE/APAP 10/325 TABLET PO PRN (10:33)
[2018-01-10] MEDS: Aspirin Enteric Coated 81 MG Tablet PO SCH (12:29)
[2018-01-10] MEDS: metOLazone 2.5 MG TABLET PO SCH (12:30)
[2018-01-10] MEDS: Sennosides 8.6 MG TABLET PO SCH ×2 (12:30→22:24)
[2018-01-10] MEDS: Renal Vitamin 1 MG CAPSULE PO SCH (12:30)
[2018-01-10] MEDS: Isosorbide MONOnitrate (24 HR) 30 MG TAB.ER.24H PO SCH (12:30)
[2018-01-10] MEDS: amLODIPine 5 MG TABLET PO SCH (12:30)
[2018-01-10] MEDS: ARIPiprazole 10 MG TABLET PO SCH (12:30)
[2018-01-10] MEDS: Insulin DETEMIR 100 UNIT/ML X5UNITS SQ SCH ×2 (12:31→22:25)
--- NOTE | 2018-01-10 13:16 | Internal Med Progress Note ---
Date of Encounter: 01/10/18 Time of Encounter: 13:14 - Subjective Interval history: Pt seen and examined at bedside. Resting in bed and denies any discomfort. s/p HD today (01/10/18), noted to be hypertensive after dialysis as she had not received her morning antihypertensive medications. Will increase Amlodipine to 10mg PO qd if pt remains hypertensive despite taking all the home medications. Pt continues to remain noncompliant with her dialysis appointments and refuses ECF care upon discharge even though she requires additional assistance getting out of bed while hospitalized - Assessment and plan (1) Abdominal pain Current Visit: No Status: Acute Assessment and plan: resolved continue reglan Qualifiers: Abdominal location: lower abdomen, unspecified Qualified Code(s): R10.30 - Lower abdominal pain, unspecified (2) Acute on chronic respiratory failure with hypoxia Current Visit: Yes Status: Acute Assessment and plan: multifactorial with HCAP and RSV. Treat as below (3) HCAP (healthcare-associated pneumonia) Current Visit: No Status: Acute Assessment and plan: ID on board and consultation appreciated abx adjusted by ID, Linezolid discontinued and started on Ampicillin continue ertapenem for UTI will defer to ID for duration of Abx (4) UTI (urinary tract infection) Current Visit: Yes Status: Acute Assessment and plan: urine cultures positive for E. Coli ESBL and Enterococcus species VRE, abx adjusted as per culture sensitivities ID on board and evaluation appreciated Qualifiers: Urinary tract infection type: acute cystitis Hematuria presence: with hematuria Qualified Code(s): N30.01 - Acute cystitis with hematuria (5) ESRD (end stage renal disease) Current Visit: Yes Status: Acute Assessment and plan: Dialysis per nephrology. s/p HD today (01/10/18) Nephrology evaluation appreciated (6) CAD (coronary artery disease) Current Visit: Yes Status: Acute Assessment and plan: Continue aspirin, Plavix, Coreg. Qualifiers: Coronary Disease-Associated Artery/Lesion type: unspecified vessel or lesion type [place] vs. transplanted heart: unspecified whether [place] or transplanted heart Associated angina: without angina Qualified Code(s): I25.10 - Atherosclerotic heart disease of [place] coronary artery without angina pectoris (7) Diabetes mellitus Current Visit: Yes Status: Acute Assessment and plan: BG better controlled with Levemir 15units BID Continue Accu-Cheks. 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; Z79.4 - custodial (current ) use of insulin (8) Pressure ulcer of coccygeal region, stage 3 Current Visit: Yes Status: Acute Assessment and plan: wound consulted and following (9) Pressure ulcer, heel, right, unstageable Current Visit: Yes Status: Acute Assessment and plan: wound care (10) DVT prophylaxis Current Visit: Yes Status: Acute Assessment and plan: Heparin subcutaneous - Constitutional Vitals: Temp Pulse Resp BP Pulse Ox 98.9 F 94 22 160/72 97 01/10/18 12:00 01/10/18 07:02 01/10/18 12:00 01/10/18 12:00 01/10/18 07:46 General appearance: Present: A&O X 3, no acute distress, obese, answers questions appropriately - Head Head exam: Present: atraumatic, normocephalic - Eye Eye exam: Present: conjuntiva pink, sclera anicteric - Respiratory Respiratory exam: Absent: respiratory distress, wheezes Additional comments: equal air entry bilaterally - Cardiovascular Cardiovascular exam: Present: RRR, +S1, +S2. Absent: diastolic murmur, gallop, rubs, systolic murmur - GI/Abdominal GI/Abdominal exam: Present: normal bowel sounds, soft, no peritoneal signs. Absent: distended, tenderness - Extremities Exam Extremities exam: Present: pedal edema, warm, radial pulses palpable and symmetrical. Absent: calf tenderness, tenderness - Neurological Exam Neurological exam: Present: oriented X3 Internal Medicine: Result - Labs CBC & Chem 7: 01/10/18 04:52 01/10/18 04:52 Labs: Short CBC 01/10/18 Range/Units 04:52 WBC 11.6 H (4.3-11.1) K/mcL Hgb 8.3 L (11.5-15.4) g/dL Hct 26.5 L (35.3-44.9) % Plt Count 110 L (140-400) K/mcL Neutrophils # 9.3 H (1.6-8.9) K/mcL BMP 01/10/18 04:52 Sodium 125 L Potassium 4.4 Chloride 91 L Carbon Dioxide 25 BUN 38 H Creatinine 3.03 H Glucose 201 H Calcium 8.3 L - ABG Interpretation ABG results: PT/INR, D-dimer PT 14.2 Seconds (9.4-12.1) H 01/06/18 04:57 Consult Discharge Plan - Plan Referrals: Tristen Quintana MD [Primary Care Provider] - (web request sent on 01/10/18)
[2018-01-10] MEDS ORDERED: amLODIPine 5 MG TABLET PO ONE (13:33)
[2018-01-10] MEDS: Ampicillin 2 GM in 0.9 % Sodium Chloride Mini Bag 100 ML IVPB SCH (15:44)
--- NOTE | 2018-01-10 19:16 | Nephrology Progress Note ---
Date of Encounter: 01/10/18 Time of Encounter: 12:00 - Assessment and Plan (1) ESRD (end stage renal disease) Status: Chronic Continue HD with UF as tolerated 24 hr urine for Crcl showed very low urine volume and crcl of 6 Lytes WNL except sodium low at 125 due to fluid overload UOP not documented in the past 24hrs, will monitor (2) Fluid overload Status: Resolved Continue aggressive UF today Continued fluid restriction advised Qualifiers: Hypervolemia type: unspecified Qualified Code(s): E87.70 - Fluid overload, unspecified (3) UTI (urinary tract infection) Status: Acute culture results noted, abx per primary team Qualifiers: Urinary tract infection type: acute cystitis Hematuria presence: with hematuria Qualified Code(s): N30.01 - Acute cystitis with hematuria Subjective Interval history: Pt seen and examined on HD with no new complaints Objective - Vital Signs Vital signs: Vital Signs Temp Pulse Resp BP Pulse Ox 01/10/18 15:07 98.8 F 86 16 157/55 100 01/10/18 14:02 147/77 01/10/18 12:00 98.9 F 22 160/72 01/10/18 11:50 189/68 01/10/18 11:35 189/68 01/10/18 11:20 155/77 01/10/18 11:05 178/89 01/10/18 10:50 177/76 01/10/18 10:35 170/87 01/10/18 10:20 184/85 01/10/18 10:05 186/77 01/10/18 09:50 178/85 01/10/18 09:35 181/74 01/10/18 09:20 173/59 01/10/18 09:05 176/78 01/10/18 08:50 176/83 01/10/18 08:35 182/83 01/10/18 08:20 98.3 F 22 186/87 01/10/18 07:46 16 97 01/10/18 07:02 98.8 F 94 16 131/68 97 01/10/18 04:24 98.5 F 87 16 148/76 90 01/09/18 23:29 98.3 F 86 18 157/76 93 01/09/18 20:00 18 93 Intake and Output 01/10/18 01/10/1801/10/18 07:59 15:59 23:59 Intake Total 1130 / 1130 Output Total 4950 / 4950 Balance -3820 / -3820 Intake: Oral 530 / 530 Intake, Rinseback and Flushes 600 / 600 Output: Urine 0 / 0 Total Dialysis (HD) Output 4600 / 4600 Catheter 350 / 350 Other: Meal Lunch Percent of Meal Consumed 0% Stool Size Small Stool Consistency formed Stool Color Brown # Bowel Movements 1 Weight 111.7 kg 111.7 kg Blood Glucose* 177 147 187 Hemodialysis Net Fluid Removed 4000 (mL) Patient Weight 01/10/18 23:59 Weight 111.7 kg - General Appearance General appearance: Present: chronically ill EENT: Present: ATNC, mucous membranes moist Neck: Present: no JVD, supple Respiratory: Present: clear Cardiology: Present: edema, normal S1, normal S2 Dialysis Vascular Access: Arteriovenous Fistula thrill: Yes bruit: Yes Gastrointestinal: Present: no tenderness, no guarding Integumentary: Present: warm and dry, chronic venous stasis Neurologic: Present: no focal deficit Musculoskeletal: Present: no deformities Psychiatric: Present: mood/affect appropriate - Lab 01/13/18 03:31 01/13/18 03:31 Most recent lab results Calcium 8.3 mg/dL (8.6-10.3) L 01/10/18 04:52 Phosphorus 4.6 mg/dL (2.7-4.5) H 01/10/18 04:52 Magnesium 1.7 mg/dL (1.6-2.6) 01/10/18 04:52 Urine Creatinine 99 mg/dL 01/08/18 08:05 Ur Total Protein 24 Hr 1374 mg/day (50-80) H 01/08/18 08:05 Urine Total Protein 723 mg/dL (1-14) H 01/08/18 08:05 Consult Discharge Plan - Plan Instructions: Heart Failure (DC) Additional Instructions: Please follow up with your primary care physician within five days after your discharge from the hospital. Please follow up with infectious disease specialist and urology within two to three weeks after your discharge from the hospital. Please follow up with your hemodialysis sessions Wednesday Continue oral Amoxicillin 500mg once daily (evening dose) for seven more days. Continue IV Ertapenem as prescribed. Reglan has been added to your home medications, please inform your primary care physician of this change. Resume all other home medications as prescribed by your primary care physician. Referrals: Tristen Quintana MD [Primary Care Provider] - 01/19/18 2:15 pm (Please follow up as schedule...) Prescriptions: Metoclopramide [Reglan] 5 mg PO TIDAC #15 [email or web address]
[2018-01-11] MEDS: *HR* OxyCODONE Immed Rel 15 MG TABLET PO PRN ×3 (00:12→18:05)
[2018-01-11] MEDS: Ampicillin 2 GM in 0.9 % Sodium Chloride Mini Bag 100 ML IVPB SCH ×2 (05:25→18:03)
[2018-01-11 06:53] LABS: Calcium 8.9 mg/dL (8.6-10.3); Magnesium 1.9 mg/dL (1.6-2.6); Phosphorous 3.7 mg/dL (2.7-4.5)
[2018-01-11 06:59] LABS: Basophils % 0.5 %; Eosinophils # 0.2 K/mcL (0.0-0.6); Eosinophils % 2.4 %; Hematocrit 28.9 % (35.3-44.9); Hemoglobin 8.9 g/dL (11.5-15.4); Immature Granulocytes % 0.6 % (0-4); Lymphocytes # 1.5 K/mcL (0.6-4.6); Lymphocytes % 18.1 %; Mean Corpuscular HGB Conc 30.8 g/dL (31.6-35.5); Mean Corpuscular Hemoglobin 27.6 pg (28.0-33.3); Mean Corpuscular Volume 89.5 fL (83.0-100.0); Mean Platelet Volume 10.8 fL (9.4-12.4); Monocytes # 0.5 K/mcL (0.0-1.3); Monocytes % 6.6 %; Neutrophils # 5.9 K/mcL (1.6-8.9); Platelet Count 122 K/mcL (140-400); Red Blood Count 3.23 M/mcL (3.82-4.97); Red Cell Distribution Width 14.6 % (11.5-14.5); Segmented Neutrophils % 71.8 %
[2018-01-11] MEDS: *HR* Heparin 5,000 UNIT/ML VIAL SQ SCH ×2 (07:00→19:31)
--- NOTE | 2018-01-11 08:23 | Infectious Disease Progress No ---
Date of Encounter: 01/11/18 Time of Encounter: 08:23 - Assessment and Plan (1) RSV (respiratory syncytial virus pneumonia) Current Visit: Yes Status: Acute Viral PCR positive for RSV - Likely contributing to increased shortness of breath, low-grade fever and tachycardia. 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 Most recently urine culture in June 2018 positive for vancomycin-resistant enterococcus and ESBL - Previous organisms demonstrate Masha tropicalis, E.coli MDRO, Klebsiella pneumoniae, Proteus mirablis ESBL Current antibiotic coverage: Ertapenem (day 4), Ampicillin 2gm q12hr IV ( day 2) Qualifiers: Urinary tract infection type: acute cystitis Hematuria presence: with hematuria Qualified Code(s): N30.01 - Acute cystitis with hematuria (4) ESRD on hemodialysis Current Visit: No Status: Chronic Management per nephrology and primary team. (5) Venous stasis dermatitis of both lower extremities Current Visit: No Status: Chronic stable. (6) Decubitus ulcer of sacral region, stage 3 Current Visit: No Status: Chronic Chronic, wound care is managing dressing changes. (7) Decubitus ulcer, heel, right, unstageable Current Visit: No Status: Acute Chronic, wound care is managing dressing changes. (8) CHF exacerbation Current Visit: Yes Status: Acute Qualifiers: Heart failure type: unspecified Qualified Code(s): I50.9 - Heart failure, unspecified (9) Thrombocytopenia Current Visit: Yes Status: Acute Patient demonstrates worsening of thrombocytopenia after initiation of Zyvox, Zyvox d/c'd. Plt 122 - We will adjust antibiotic coverage from Zyvox as this increases the risk of further thrombocytopenia complications. - Zyvox with combination of SSRIs also increases the risk of serotonin syndrome. - Subjective Interval history: Mrs. Riley has been seen and evaluated patient bedside this morning. She is alert awake interactive no acute distress. She tolerated breakfast without any discomforts or pains. Continues of some mild shortness of breath and cough without production. She states that she is slightly nauseous but has not had any vomiting. She does continue to have some mild right flank and right lower abdominal pain which she said improved with oral pain medication. Denies any subjective fevers chills or diaphoresis. Denies any other concerns at this time. Infect Dis PN-Objective Data - Labs CBC & Chem 7: 01/11/18 06:20 01/11/18 06:20 Labs: Laboratory Results - last 24 hr 01/09/18 01/09/18 01/09/18 11:47 16:06 23:05 WBC RBC Hgb Hct MCV MCH MCHC RDW Plt Count MPV Immature Gran % Seg Neutrophils % Lymphocytes % Monocytes % Eosinophils % Basophils % Neutrophils # Lymphocytes # Monocytes # Eosinophils # Basophils # Sodium Potassium Chloride Carbon Dioxide BUN Creatinine Est GFR ( Amer) Est GFR (Non-Af Amer) BUN/Creatinine Ratio Glucose POC Glucose 172 H 296 H 138 H Calculated Osmolality Calcium Phosphorus Magnesium 01/10/18 01/10/18 01/10/18 07:07 10:44 16:05 WBC RBC Hgb Hct MCV MCH MCHC RDW Plt Count MPV Immature Gran % Seg Neutrophils % Lymphocytes % Monocytes % Eosinophils % Basophils % Neutrophils # Lymphocytes # Monocytes # Eosinophils # Basophils # Sodium Potassium Chloride Carbon Dioxide BUN Creatinine Est GFR ( Amer) Est GFR (Non-Af Amer) BUN/Creatinine Ratio Glucose POC Glucose 177 H 147 H 187 H Calculated Osmolality Calcium Phosphorus Magnesium 01/10/18 01/11/18 01/11/18 21:13 06:20 06:20 WBC 8.2 RBC 3.23 L Hgb 8.9 L Hct 28.9 L MCV 89.5 MCH 27.6 L MCHC 30.8 L RDW 14.6 H Plt Count 122 L MPV 10.8 Immature Gran % 0.6 Seg Neutrophils % 71.8 Lymphocytes % 18.1 Monocytes % 6.6 Eosinophils % 2.4 Basophils % 0.5 Neutrophils # 5.9 Lymphocytes # 1.5 Monocytes # 0.5 Eosinophils # 0.2 Basophils # 0.0 Sodium 133 L Potassium 4.0 Chloride 95 L Carbon Dioxide 31 H BUN 23 Creatinine 2.06 H Est GFR ( Amer) 29 L Est GFR (Non-Af Amer) 24 L BUN/Creatinine Ratio 11 Glucose 83 POC Glucose 96 H Calculated Osmolality 279 L Calcium 8.9 Phosphorus 3.7 Magnesium 1.9 04/03/18 07:43 WBC RBC Hgb Hct MCV MCH MCHC RDW Plt Count MPV Immature Gran % Seg Neutrophils % Lymphocytes % Monocytes % Eosinophils % Basophils % Neutrophils # Lymphocytes # Monocytes # Eosinophils # Basophils # Sodium Potassium Chloride Carbon Dioxide BUN Creatinine Est GFR ( Amer) Est GFR (Non-Af Amer) BUN/Creatinine Ratio Glucose POC Glucose 74 Calculated Osmolality Calcium Phosphorus Magnesium Exam - Constitutional Vitals: Temp Pulse Resp BP Pulse Ox 98.0 F 84 16 118/61 94 01/11/18 07:38 01/11/18 07:38 01/11/18 07:38 01/11/18 07:38 01/11/18 07:38 Exam: General: Patient alert, awake, oriented 3, interactive, in no acute distress HEENT: Normocephalic, atraumatic, pupils equal reactive to light, oral mucosa dry, neck supple trachea midline no palpable lymphadenopathy, Chest: Symmetric bilateral correlating with respiratory effort, effort nonlabored. Cardiac: Regular rate and rhythm, positive S1 and S2. no bruits appreciated bilateral carotids, Radial pulses 2+ bilateral, posterior tibial and dorsal pedal pulses 2+ bilateral. Respiratory: Diffuse inspiration and expiratory rhonchi in all lung tran Abdomen: Soft, obese, bruising of the abdominal wall likely secondary to heparin injections, diffuse tenderness more so on the right flank and right quadrant. positive bowel sounds, no palpable masses appreciated on examination Extremities: Symmetric bilateral, bilateral lower extremity edema 1+ pitting, bilateral venous stasis, right heel pressure ulcer, coccygeal stage III decubitus ulcer, bilateral knee replacements (right side 2004, left side 2010) Neurologic: Face symmetric, muscle strength symmetric bilateral upper and lower extremities. Consult Discharge Plan - Plan Referrals: Tristen Quintana MD [Primary Care Provider] - 01/13/18 4:00 pm () - Attending Attestation I examined this patient and my medical decision-making was reviewed with the Resident Physician. I agree with the documented findings, disposition and treatment plan as described except to the extent set forth below.
[2018-01-11] MEDS ORDERED: amLODIPine 5 MG TABLET PO SCH (09:00)
--- NOTE | 2018-01-11 10:30 | Nephrology Progress Note ---
<HareTae lopeznory Naik - Last Filed: 01/11/18 10:31> Date of Encounter: 01/11/18 Time of Encounter: 10:27 - Assessment and Plan (1) ESRD (end stage renal disease) on dialysis Status: Chronic Will plan for UF today HD tomorrow UOP 350ml Continue renal diet Avoid nephrotoxins if possible Patient is grossly non-compliant with her outpatient HD treatments; does better when in an ECF. Highly recommend patient go to an ECF upon discharge (2) Fluid overload Status: Acute UF today Qualifiers: Hypervolemia type: unspecified Qualified Code(s): E87.70 - Fluid overload, unspecified (3) Non-compliance with renal dialysis Status: Acute Grossly non-complaint see above Subjective Principal diagnosis: ESRD on dialysis, fluid overload Interval history: Patient seen and examined. c/o SOB, not feeling well. Objective - Vital Signs Vital signs: Vital Signs Temp Pulse Resp BP Pulse Ox 01/11/18 07:38 98.0 F 84 16 118/61 94 01/11/18 05:32 98 F 90 17 139/63 91 01/10/18 23:55 98 F 86 17 174/89 98 01/10/18 22:05 17 99 01/10/18 21:17 98.2 F 82 17 137/74 99 01/10/18 15:07 98.8 F 86 16 157/55 100 01/10/18 14:02 147/77 01/10/18 12:00 98.9 F 22 160/72 01/10/18 11:50 189/68 01/10/18 11:35 189/68 01/10/18 11:20 155/77 01/10/18 11:05 178/89 01/10/18 10:50 177/76 01/10/18 10:35 170/87 Intake and Output 01/10/18 01/11/18 01/11/18 23:59 07:59 15:59 Intake Total 100 / 100 Balance 100 / 100 Intake: IV Fluids 100 / 100 Ampicillin 2 GM In 0.9 % Sodium 100 / 100 Chloride (Mini-Bag +) 100 ML @ 200 mls/hr IVPB Q12H NATALIE Rx#: [id number] Other: Meal 1 whole milk 2 pks janell crackers 2 peanut butter Stool Size Moderate Stool Consistency soft formed Stool Color Brown Black # Bowel Movements 1 Weight 110.1 kg Blood Glucose* 187 74 Patient Weight 01/11/18 23:59 Weight 110.1 kg - General Appearance General appearance: Present: chronically ill EENT: Present: ATNC, mucous membranes moist, hearing intact, vision intact Neck: Present: supple Respiratory: Present: wheezing Cardiology: Present: edema, normal S1, normal S2 Gastrointestinal: Present: no tenderness, no guarding Integumentary: Present: warm and dry Neurologic: Present: alert and oriented x3 Psychiatric: Present: mood/affect appropriate, cooperative - Lab 01/11/18 06:20 01/11/18 06:20 Most recent lab results Calcium 8.9 mg/dL (8.6-10.3) 01/11/18 06:20 Phosphorus 3.7 mg/dL (2.7-4.5) 01/11/18 06:20 Magnesium 1.9 mg/dL (1.6-2.6) 01/11/18 06:20 Urine Creatinine 99 mg/dL 01/08/18 08:05 Ur Total Protein 24 Hr 1374 mg/day (50-80) H 01/08/18 08:05 Urine Total Protein 723 mg/dL (1-14) H 01/08/18 08:05 Consult Discharge Plan - Plan Instructions: Heart Failure (DC) Additional Instructions: Please follow up with your primary care physician within five days after your discharge from the hospital. Please follow up with infectious disease specialist and urology within two to three weeks after your discharge from the hospital. Please follow up with your hemodialysis sessions Wednesday Continue oral Amoxicillin 500mg once daily (evening dose) for seven more days. Continue IV Ertapenem as prescribed. Reglan has been added to your home medications, please inform your primary care physician of this change. Resume all other home medications as prescribed by your primary care physician. Referrals: Tristen Quintana MD [Primary Care Provider] - 01/19/18 2:15 pm (Please follow up as schedule...) Prescriptions: Metoclopramide [Reglan] 5 mg PO TIDAC #15 [email or web address] <Luma Mendez - Last Filed: 02/08/18 22:37> Date of Encounter: 01/11/18 - Assessment and Plan (1) ESRD (end stage renal disease) Status: Chronic (2) Fluid overload Status: Resolved Qualifiers: Hypervolemia type: unspecified Qualified Code(s): E87.70 - Fluid overload, unspecified (3) UTI (urinary tract infection) Status: Acute Qualifiers: Urinary tract infection type: acute cystitis Hematuria presence: with hematuria Qualified Code(s): N30.01 - Acute cystitis with hematuria Objective - Lab 01/13/18 03:31 04 03:31 Most recent lab results Calcium 9.0 mg/dL (8.6-10.3) 01/13/18 03:31 Phosphorus 5.1 mg/dL (2.7-4.5) H 01/13/18 03:31 Magnesium 2.2 mg/dL (1.6-2.6) 01/13/18 03:31 Urine Creatinine 99 mg/dL 01/08/18 08:05 Ur Total Protein 24 Hr 1374 mg/day (50-80) H 01/08/18 08:05 Urine Total Protein 723 mg/dL (1-14) H 01/08/18 08:05 - Attending Attestation I examined this patient and my medical decision-making was reviewed with the Resident Physician/SENIOR ELECTRONICS TECHNICIAN. I agree with the documented findings, disposition and treatment plan as described except to the extent set forth below. Pt seen and examined today does not feel well, seems to like staying in the hospital. Very noncompliant with outpatient HD sessions, will benefit from ECF stay on discharge. Will plan to UF today give continued volume overload. HD tomorrow.
[2018-01-11] MEDS: Metoclopramide 10 MG/10 ML UD.LIQ PO SCH ×3 (10:50→18:04)
[2018-01-11] MEDS: Insulin LISPRO 300 UNITS/3 ML VIAL SQ SCH ×4 (10:50→22:21)
[2018-01-11] MEDS: Aspirin Enteric Coated 81 MG Tablet PO SCH (10:50)
[2018-01-11] MEDS: Sennosides 8.6 MG TABLET PO SCH ×2 (10:51→22:18)
[2018-01-11] MEDS: ARIPiprazole 10 MG TABLET PO SCH (10:51)
[2018-01-11] MEDS: Isosorbide MONOnitrate (24 HR) 30 MG TAB.ER.24H PO SCH (10:51)
[2018-01-11] MEDS: Renal Vitamin 1 MG CAPSULE PO SCH (10:51)
[2018-01-11] MEDS: Gabapentin 100 MG CAPSULE PO SCH ×3 (10:51→22:18)
[2018-01-11] MEDS: Calcium Acetate 667 MG CAPSULE PO SCH ×3 (10:52→18:04)
[2018-01-11] MEDS: Nicotine 21 MG PATCH.TD24 TD SCH (10:53)
[2018-01-11] MEDS: Budesonide/Formoterol 160/4.5 MDI IH SCH ×2 (11:11→21:00)
[2018-01-11] MEDS ORDERED: 0.9 % Sodium Chloride 250 ML IVC PRN (11:41)
[2018-01-11] MEDS ORDERED: 0.9 % Sodium Chloride 1,000 ML PRIME SCH (11:45)
--- NOTE | 2018-01-11 13:36 | Internal Med Progress Note ---
Date of Encounter: 01/11/18 Time of Encounter: 13:36 - Time Spent With Patient Total time spent is greater than 50% in coordination of care (as documented) at patient's floor/unit and/or counseling patient: - Subjective Interval history: Pt seen and examined in hemodialysis. Denies any discomfort at this time Pt continues to remain noncompliant with her dialysis appointments and refuses ECF care upon discharge even though she requires additional assistance getting out of bed while hospitalized - Assessment and plan (1) Abdominal pain Current Visit: No Status: Acute Assessment and plan: resolved continue reglan Qualifiers: Abdominal location: lower abdomen, unspecified Qualified Code(s): R10.30 - Lower abdominal pain, unspecified (2) Acute on chronic respiratory failure with hypoxia Current Visit: Yes Status: Acute Assessment and plan: multifactorial with HCAP and RSV. Treat as below (3) HCAP (healthcare-associated pneumonia) Current Visit: No Status: Acute Assessment and plan: ID on board and consultation appreciated continue Ampicillin continue ertapenem for UTI, will need treatment for a total of 14 days, social worker assistant informed to set up abx after discharge (4) UTI (urinary tract infection) Current Visit: Yes Status: Acute Assessment and plan: urine cultures positive for E. Coli ESBL and Enterococcus species VRE, abx adjusted as per culture sensitivities ID on board and evaluation appreciated Qualifiers: Urinary tract infection type: acute cystitis Hematuria presence: with hematuria Qualified Code(s): N30.01 - Acute cystitis with hematuria (5) ESRD (end stage renal disease) Current Visit: Yes Status: Acute Assessment and plan: Dialysis per nephrology. s/p HD today (01/11/18) Nephrology evaluation appreciated (6) CAD (coronary artery disease) Current Visit: Yes Status: Acute Assessment and plan: Continue aspirin, Plavix, Coreg. Qualifiers: Coronary Disease-Associated Artery/Lesion type: unspecified vessel or lesion type [place] vs. transplanted heart: unspecified whether [place] or transplanted heart Associated angina: without angina Qualified Code(s): I25.10 - Atherosclerotic heart disease of [place] coronary artery without angina pectoris (7) Diabetes mellitus Current Visit: Yes Status: Acute Assessment and plan: BG better controlled with Levemir 15units BID Continue Accu-Cheks. sliding scale insulin algorithm as needed ADA diet Qualifiers: Diabetes mellitus type: type 2 Diabetes mellitus chcf insulin use: with chcf use Diabetes mellitus complication status: with hyperglycemia Qualified Code(s): E11.65 - Type 2 diabetes mellitus with hyperglycemia; Z79.4 - exterminator (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 of insulin; Z79.4 - [facility] (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 of insulin; Z79.4 - exterminator (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 of insulin; Z79.4 - exterminator (current ) use of insulin (8) Pressure ulcer of coccygeal region, stage 3 Current Visit: Yes Status: Acute Assessment and plan: wound consulted and following (9) Pressure ulcer, heel, right, unstageable Current Visit: Yes Status: Acute Assessment and plan: wound care (10) DVT prophylaxis Current Visit: Yes Status: Acute Assessment and plan: Heparin subcutaneous - Constitutional Vitals: Temp Pulse Resp BP Pulse Ox 98.0 F 81 22 105/59 100 01/11/18 12:00 01/11/18 11:42 01/11/18 12:00 01/11/18 13:00 01/11/18 11:42 General appearance: Present: A&O X 3, no acute distress, obese, answers questions appropriately - Head Head exam: Present: atraumatic, normocephalic - Eye Eye exam: Present: conjuntiva pink, sclera anicteric - Respiratory Respiratory exam: Absent: respiratory distress, wheezes - Cardiovascular Cardiovascular exam: Present: RRR, +S1, +S2. Absent: diastolic murmur, gallop, rubs, systolic murmur - GI/Abdominal GI/Abdominal exam: Present: normal bowel sounds, soft, no peritoneal signs. Absent: distended, tenderness - Extremities Exam Extremities exam: Present: warm, radial pulses palpable and symmetrical. Absent : calf tenderness - Neurological Exam Neurological exam: Present: oriented X3 Internal Medicine: Result - Labs CBC & Chem 7: 01/11/18 06:20 01/11/18 06:20 Labs: Short CBC 01/11/18 Range/Units 06:20 WBC 8.2 (4.3-11.1) K/mcL Hgb 8.9 L (11.5-15.4) g/dL Hct 28.9 L (35.3-44.9) % Plt Count 122 L (140-400) K/mcL Neutrophils # 5.9 (1.6-8.9) K/mcL BMP 01/11/18 06:20 Sodium 133 L Potassium 4.0 Chloride 95 L Carbon Dioxide 31 H BUN 23 Creatinine 2.06 H Glucose 83 Calcium 8.9 - ABG Interpretation ABG results: PT/INR, D-dimer PT 14.2 Seconds (9.4-12.1) H 01/06/18 04:57 Consult Discharge Plan - Plan Referrals: Tristen Quintana MD [Primary Care Provider] - 01/13/18 4:00 pm () Prescriptions: Ertapenem [INVanz] 500 mg IVPB DAILY #10 vial
[2018-01-11] MEDS: Insulin DETEMIR 100 UNIT/ML X5UNITS SQ SCH ×2 (13:50→22:18)
[2018-01-11] MEDS: Furosemide 40 MG TABLET PO SCH ×2 (13:50→18:05)
[2018-01-11] MEDS: metOLazone 2.5 MG TABLET PO SCH (13:51)
[2018-01-11] MEDS: amLODIPine 5 MG TABLET PO SCH (13:51)
--- NOTE | 2018-01-11 17:32 | Urology - Consult Note ---
Date of Encounter: 01/11/18 Time of Encounter: 17:30 - Assessment and Plan (1) UTI (urinary tract infection) Current Visit: Yes Status: Acute Assessment and plan: 62-year-old woman with a history of bacteriuria with extended spectrum beta- lactamase Escherichia coli was seen in consultation. She currently has an indwelling catheter and a stent. She has been afebrile. I reviewed her CT scan which shows resolution of her hydronephrosis and no evidence of gas within her collecting system. I would recommend keeping her stent for now in order to maximally drain her. I think it may be reasonable to discontinue her Hawkins catheter and see how she does. If she has recurrence of her infection, we can consider removal of the stent, but that may put her at risk given her history of hydronephrosis. I spoke at length with Dr. Molina. I will continue to follow along. I will discuss with the primary team regarding removal of her Hawkins catheter. Qualifiers: Urinary tract infection type: acute cystitis Hematuria presence: with hematuria Qualified Code(s): N30.01 - Acute cystitis with hematuria (2) Hydronephrosis Current Visit: No Status: Acute Assessment and plan: I reviewed her CT scan which shows improvement in her hydronephrosis. I would like to keep her stent in place for now. It is unclear if the hydronephrosis is secondary to obstruction or possible long-standing reflux. For now, we will just keep the stent in place and potentially remove it at a later date to see if her infection has been cleared or if it potentially returns. Qualifiers: Hydronephrosis type: unspecified Qualified Code(s): N13.30 - Unspecified hydronephrosis (3) Hydronephrosis, right Current Visit: No Status: Chronic Urology CN:HPI Consult date: 01/11/18 Reason for consult Urology: Hydronephrosis Requesting physician: Greg Molina History of present illness: 62-year-old woman who was admitted for volume overload and possible urinary tract infection. She has a history of right-sided hydronephrosis. On 2017 she presented with sepsis and emphysematous pyelonephritis. A stent was placed at that time. A recent urine culture grew out some spectrum beta lactamase Escherichia coli. He was counseled by Dr. Molina to discuss management of her stent and Hawkins catheter. She typically voids on her own. She says she has been doing otherwise fairly well with the stent in place. She is not having much in the way of back pain. She says her urine has an pao color to it. Past Med Surg Social Fam HX - Past Medical History Medical history: COPD, coronary artery disease, CVA, DVT, diabetes, dialysis, GERD, GI bleed, hyperlipidemia, hypertension, peripheral artery disease, other Psychiatric history: anxiety, depression, schizophrenia, previous psychiatric hospitalization, other - Past Surgical History Surgical History: angioplasty/stent, appendectomy, cholecystectomy, coronary bypass (CABG), hysterectomy, knee replacement, other, IVC filter - Social History Smoking Status: Current every day smoker Smokeless Tobacco Status: No Alcohol use: none Drug use: none - Family History Father Family Member Ethnicity: Non- Living Status: Hx Family Cardiac Disorders: Yes (CAD, [place]) Hx Family Cancer: Yes (Polycythemia) Hx Family Endocrine Disorder: Yes (DM) Mother Family Member Ethnicity: Non- Living Status: Still Living Hx Family Cardiac Disorders: Yes Hx Family Respiratory Disorders: Yes (End stage COPD) Brother Family Member Ethnicity: Non- Living Status: Still Living Hx Family Cardiac Disorders: Yes Hx Family GI Disorders: Yes (dm) Sister Adopted: No Family Member Ethnicity: Non- Living Status: Still Living Hx Family Cardiac Disorders: Yes Hx Family Respiratory Disorders: No Hx Family Cancer: No Hx Family GI Disorders: No Hx Family Endocrine Disorder: No Hx Family Neuromuscular Disorders: No Hx Family Neurologic Disorders: No Hx Family HEENT Disorders: No Hx Family Autoimmune Disorders: No Medications and Allergies Omeprazole [PriLOSEC] 20 mg PO DAILY 05/11/15 [History] Colestipol HCl [Colestid] 1 gm PO BID 06/12/15 [History] Carvedilol 12.5 mg PO BID 10/28/15 [History] Calcium Acetate [Phos-LO] 1,334 mg PO TIDWM 09/06/16 [History] Folic Acid/Vit Bcomp,C [Renal Vitamin Tablet] 0.8 mg PO DAILY 04/15/17 [History] ARIPiprazole [Abilify] 10 mg PO DAILY 09/13/17 [History] Aspirin Enteric Coated [Aspirin EC] 81 mg PO DAILY 09/13/17 [History] Budesonide/Formoterol 160/4.5 [Symbicort 160/4.5] 2 puff IH BIDR 09/13/17 [ History] Cholecalciferol (Vitamin D3) [Vitamin D3] 50,000 unit PO TH 09/13/17 [History] OxyCODONE/APAP 10/325 [Percocet 10/325 MG] 1 tab PO Q6H PRN 09/13/17 [History] Sennosides [Senna] 8.8 mg PO BID 09/13/17 [History] Sevelamer [Renvela] 800 mg PO TID 09/13/17 [History] Albuterol Neb [AccuNeb] 0.63 mg IH Q6H PRN 10/18/17 [History] Gabapentin [Neurontin] 100 mg PO TID #60 capsule 10/21/17 [Rx] Collagenase Oint [Santyl] 1 appl TP DAILY 11/11/17 [History] Oxybutynin [Ditropan] 5 mg PO TID 11/11/17 [History] Isosorbide MONOnitrate (24 HR) [Imdur] 30 mg PO DAILY #30 tab.er.24h 11/19/17 [ Rx] Insulin LISPRO [Humalog Kwikpen U-100] 0 unit SQ ACHS 11/25/17 [History] Acetaminophen [Tylenol] 650 mg PO Q6HR PRN tablet 12/14/17 [Rx] Amitriptyline HCl 100 mg PO HS 12/22/17 [History] Morphine Sulfate SR (12 HR) [MS Contin] 30 mg PO Q12HR 12/22/17 [History] Rosuvastatin [Crestor] 10 mg PO HS 12/22/17 [History] amLODIPine [Norvasc] 5 mg PO DAILY 12/30/17 [History] Insulin Glargine,Hum.rec.anlog [Basaglar Kwikpen U-100] 60 unit SQ BID 01/06/18 [History] metOLazone [Zaroxolyn] 2.5 mg PO DAILY 01/06/18 [History] Ertapenem [INVanz] 500 mg IVPB DAILY #10 vial 01/11/18 [Rx] 3 Allergy/AdvReac Type Severity Reaction Status Date / Time No Known Allergies Allergy Verified 01/06/18 09:30 Review of Systems - Constitutional no chills, no fever(s) - EENT Nose, mouth and throat: no dizziness - Cardiovascular no chest pain - Respiratory no dyspnea - Gastrointestinal no nausea, no vomiting - Genitourinary Genitourinary: no flank pain, no hematuria - Musculoskeletal no back pain - Integumentary no erythema, no rash - Neurological no weakness - Psychiatric no suicidal ideation - Hematologic/Lymphatic no easy bleeding - Allergic/Immunologic no wheezing Exam Initial Vital Signs Temp Pulse Resp BP Pulse Ox 99.2 F 116 22 181/87 94 01/05/18 22:43 01/05/18 22:43 01/05/18 22:43 01/05/18 22:43 01/05/18 22:43 - General physical appearance Present: well developed, well nourished, no distress - Eyes Absent: icteric - ENT Present: normal nares - Neck Present: trachea midline - Respiratory Present: normal respiratory effort - Cardiovascular Cardiovascular exam IM: RRR - Abdomen Abdomen: Present: soft - Genitourinary Present: other (Hawkins catheter in place with pao urine.) Urology Results - Labs 01/11/18 06:20 01/11/18 06:20 Abnormal lab results RBC 3.23 M/mcL (3.82-4.97) L 01/11/18 06:20 Hgb 8.9 g/dL (11.5-15.4) L 01/11/18 06:20 Hct 28.9 % (35.3-44.9) L 01/11/18 06:20 MCH 27.6 pg (28.0-33.3) L 01/11/18 06:20 MCHC 30.8 g/dL (31.6-35.5) L 01/11/18 06:20 RDW 14.6 % (11.5-14.5) H 01/11/18 06:20 Plt Count 122 K/mcL (140-400) L 01/11/18 06:20 Nucleated RBCs/100 WBC 0.6 /100 WBC (0) H 01/09/18 04:05 PT 14.2 Seconds (9.4-12.1) H 01/06/18 04:57 Sodium 133 mEq/L (136-145) L 01/11/18 06:20 Chloride 95 mEq/L (98-107) L 01/11/18 06:20 Carbon Dioxide 31 mEq/L (23-29) H 01/11/18 06:20 Creatinine 2.06 mg/dL (0.60-1.20) H 01/11/18 06:20 Est GFR ( Amer) 29 (> 60) L 01/11/18 06:20 Est GFR (Non-Af Amer) 24 (> 60) L 01/11/18 06:20 Calculated Osmolality 279 (280-300) L 01/11/18 06:20 AST 44 Units/L (13-39) H 01/05/18 23:20 ALT 97 Units/L (7-52) H 01/05/18 23:20 Alkaline Phosphatase 387 Units/L (34-104) H 01/05/18 23:20 Albumin 3.3 g/dL (3.5-5.7) L 01/05/18 23:20 Albumin/Globulin Ratio 1.0 (1.1-2.2) L 01/05/18 23:20 PTH Intact 398.3 pg/ml (10.0-65.0) H 01/06/18 04:57 Urine Clarity Turbid (Clear) A 01/06/18 10:34 Ur Specific [place] 1.028 (1.010-1.025) H 01/06/18 10:34 Urine Protein >=1000 mg/dL (Neg-Trace) H 01/06/18 10:34 Urine Glucose (UA) 100 mg/dL (Normal) H 01/06/18 10:34 Urine Blood Moderate (Negative) H 01/06/18 10:34 Ur Leukocyte Esterase Large (Negative) H 01/06/18 10:34 Urine Microscopic RBC 3-5 per hpf (0-3) H 01/06/18 10:34 Urine Microscopic WBC TNTC per hpf (0-3) H 01/06/18 10:34 Urine Bacteria Many per hpf (None-Few) H 01/06/18 10:34 Ur Culture Indicated? YES (NO) A 01/06/18 10:34 Urine Total Volume 0.19 Liters (0.60-1.60) L 01/08/18 08:05 Ur Creatinine 24 Hour 188 mg/day (600-1800) L 01/08/18 08:05 Creatinine Clearance 6 mL/min (61-166) L 01/08/18 08:05 Ur Total Protein 24 Hr 1374 mg/day (50-80) H 01/08/18 08:05 Protein/Creatinin Ratio 7.30 mg/mg (0.00-0.20) H 01/08/18 08:05 Ur Urea Nitrogen 24 Hr 0 g/day (12-20) L 01/08/18 08:05 Urine Total Protein 723 mg/dL (1-14) H 01/08/18 08:05 RSV (PCR) Positive (Negative) A 01/06/18 13:02 Diabetes panel 01/11/18 Range/Units 06:20 Sodium 133 L (136-145) mEq/L Potassium 4.0 (3.5-5.1) mEq/L Chloride 95 L (98-107) mEq/L Carbon Dioxide 31 H (23-29) mEq/L BUN 23 (8-23) mg/dL Creatinine 2.06 H (0.60-1.20) mg/dL Glucose 83 (70-105) mg/dL Calcium 8.9 (8.6-10.3) mg/dL Calcium panel 01/11/18 Range/Units 06:20 Calcium 8.9 (8.6-10.3) mg/dL Phosphorus 3.7 (2.7-4.5) mg/dL Pituitary panel 01/11/18 Range/Units 06:20 Sodium 133 L (136-145) mEq/L Potassium 4.0 (3.5-5.1) mEq/L Chloride 95 L (98-107) mEq/L Carbon Dioxide 31 H (23-29) mEq/L BUN 23 (8-23) mg/dL Creatinine 2.06 H (0.60-1.20) mg/dL Glucose 83 (70-105) mg/dL Calcium 8.9 (8.6-10.3) mg/dL Adrenal panel 01/11/18 Range/Units 06:20 Sodium 133 L (136-145) mEq/L Potassium 4.0 (3.5-5.1) mEq/L Chloride 95 L (98-107) mEq/L Carbon Dioxide 31 H (23-29) mEq/L BUN 23 (8-23) mg/dL Creatinine 2.06 H (0.60-1.20) mg/dL Glucose 83 (70-105) mg/dL Calcium 8.9 (8.6-10.3) mg/dL All other labs normal. - Imaging CT scan - abdomen: report reviewed, image reviewed CT scan - pelvis: report reviewed, image reviewed Consult Discharge Plan - Plan Referrals: Tristen Quintana MD [Primary Care Provider] - 01/13/18 4:00 pm () Prescriptions: Ertapenem [INVanz] 500 mg IVPB DAILY #10 vial
[2018-01-12] MEDS: Ampicillin 2 GM in 0.9 % Sodium Chloride Mini Bag 100 ML IVPB SCH ×2 (05:33→15:09)
[2018-01-12] MEDS ORDERED: Ampicillin 2 GM VIAL ONE (05:36)
[2018-01-12] MEDS: *HR* Heparin 5,000 UNIT/ML VIAL SQ SCH ×2 (05:46→16:39)
[2018-01-12 06:07] LABS: Basophils % 0.2 %; Eosinophils # 0.3 K/mcL (0.0-0.6); Eosinophils % 2.6 %; Hematocrit 31.4 % (35.3-44.9); Hemoglobin 9.4 g/dL (11.5-15.4); Immature Granulocytes % 0.8 % (0-4); Lymphocytes # 1.6 K/mcL (0.6-4.6); Lymphocytes % 14.7 %; Mean Corpuscular HGB Conc 29.9 g/dL (31.6-35.5); Mean Corpuscular Hemoglobin 27.3 pg (28.0-33.3); Mean Corpuscular Volume 91.3 fL (83.0-100.0); Mean Platelet Volume 10.7 fL (9.4-12.4); Monocytes # 0.6 K/mcL (0.0-1.3); Neutrophils # 8.1 K/mcL (1.6-8.9); Platelet Count 166 K/mcL (140-400); Red Blood Count 3.44 M/mcL (3.82-4.97); Red Cell Distribution Width 14.5 % (11.5-14.5); Segmented Neutrophils % 75.7 %
[2018-01-12 06:21] LABS: Calcium 9.1 mg/dL (8.6-10.3); Phosphorous 5.4 mg/dL (2.7-4.5); Potassium 4.4 mEq/L (3.5-5.1)
[2018-01-12] MEDS: Budesonide/Formoterol 160/4.5 MDI IH SCH ×2 (07:44→20:08)
--- NOTE | 2018-01-12 08:15 | Internal Med Progress Note ---
Date of Encounter: 01/12/18 Time of Encounter: 08:15 - Assessment and plan (1) RSV (respiratory syncytial virus pneumonia) Current Visit: Yes Status: Acute (2) Diarrhea Current Visit: Yes Status: Acute Qualifiers: Diarrhea type: unspecified type Qualified Code(s): R19.7 - Diarrhea, unspecified (3) UTI (urinary tract infection) Current Visit: Yes Status: Acute Qualifiers: Urinary tract infection type: acute cystitis Hematuria presence: with hematuria Qualified Code(s): N30.01 - Acute cystitis with hematuria (4) ESRD on hemodialysis Current Visit: No Status: Chronic (5) Venous stasis dermatitis of both lower extremities Current Visit: No Status: Chronic (6) Decubitus ulcer of sacral region, stage 3 Current Visit: No Status: Chronic (7) Decubitus ulcer, heel, right, unstageable Current Visit: No Status: Acute (8) CHF exacerbation Current Visit: Yes Status: Acute Qualifiers: Heart failure type: unspecified Qualified Code(s): I50.9 - Heart failure, unspecified (9) Thrombocytopenia Current Visit: Yes Status: Acute - Time Spent With Patient Total time spent is greater than 50% in coordination of care (as documented) at patient's floor/unit and/or counseling patient: - Subjective Interval history: Mrs. Riley has been seen and evaluated patient bedside this morning. She is alert awake interactive no acute distress. She tolerated breakfast without any discomforts or pains. Continues of some mild shortness of breath and cough without production. She states that she is slightly nauseous but has not had any vomiting. She does continue to have some mild right flank and right lower abdominal pain which she said improved with oral pain medication. Denies any subjective fevers chills or diaphoresis. Denies any other concerns at this time. - Constitutional Vitals: Temp Pulse Resp BP Pulse Ox 97.5 F L 85 16 152/76 95 01/12/18 07:40 01/12/18 07:40 01/12/18 07:45 01/12/18 07:40 01/12/18 07:45 General appearance: Present: A&O X 3, no acute distress, obese, answers questions appropriately Internal Medicine: Result - Labs CBC & Chem 7: 01/12/18 04:00 01/12/18 04:00 Labs: Short CBC 01/12/18 Range/Units 04:00 WBC 10.6 (4.3-11.1) K/mcL Hgb 9.4 L (11.5-15.4) g/dL Hct 31.4 L (35.3-44.9) % Plt Count 166 (140-400) K/mcL Neutrophils # 8.1 (1.6-8.9) K/mcL BMP 01/12/18 04:00 Sodium 133 L Potassium 4.4 Chloride 93 L Carbon Dioxide 31 H BUN 30 H Creatinine 2.64 H Glucose 158 H Calcium 9.1 - ABG Interpretation ABG results: PT/INR, D-dimer PT 14.2 Seconds (9.4-12.1) H 01/06/18 04:57 Consult Discharge Plan - Plan Referrals: Tristen Quintana MD [Primary Care Provider] - 01/13/18 4:00 pm () Prescriptions: Ertapenem [INVanz] 500 mg IVPB DAILY #10 vial
[2018-01-12] MEDS ORDERED: 0.9 % Sodium Chloride 250 ML IVC PRN (08:31)
--- NOTE | 2018-01-12 08:47 | Infectious Disease Progress No ---
Date of Encounter: 01/12/18 Time of Encounter: 08:45 - Assessment and Plan (1) RSV (respiratory syncytial virus pneumonia) Current Visit: Yes Status: Acute Viral PCR positive for RSV - Likely contributing to increased shortness of breath, low-grade fever and tachycardia. 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 Most recently urine culture in June 2018 positive for vancomycin-resistant enterococcus and ESBL - Previous organisms demonstrate M[place] tropicalis, E.coli MDRO, Klebsiella pneumoniae, Proteus mirablis ESBL - Patient seen by urology as she has ureter stent, no plans to remove stent at this time but may require stent removal in the future if recurrence of UTI. Current antibiotic coverage: Ertapenem (day 5) recommend total of 14 days antibiotic coverage. Through January 21 Ampicillin 2gm q12hr IV ( day 2) for coverage for pneumonia Qualifiers: Urinary tract infection type: acute cystitis Hematuria presence: with hematuria Qualified Code(s): N30.01 - Acute cystitis with hematuria (4) ESRD on hemodialysis Current Visit: No Status: Chronic Management per nephrology and primary team. (5) Venous stasis dermatitis of both lower extremities Current Visit: No Status: Chronic stable. (6) Decubitus ulcer of sacral region, stage 3 Current Visit: No Status: Chronic Chronic, wound care is managing dressing changes. (7) Decubitus ulcer, heel, right, unstageable Current Visit: No Status: Acute Chronic, wound care is managing dressing changes. (8) CHF exacerbation Current Visit: Yes Status: Acute Qualifiers: Heart failure type: unspecified Qualified Code(s): I50.9 - Heart failure, unspecified (9) Thrombocytopenia Current Visit: Yes Status: Acute Patient demonstrates worsening of thrombocytopenia after initiation of Zyvox, Zyvox d/c'd. Plt 166 - We will adjust antibiotic coverage from Zyvox as this increases the risk of further thrombocytopenia complications. - Zyvox with combination of SSRIs also increases the risk of serotonin syndrome. - Subjective Interval history: Mr. Riley has been seen about a patient bedside this morning. She is alert awake interactive no acute distress. She denies any fevers, chills, diaphoresis or acute changes overnight. She understands antibiotic course and duration. No further questions were infectious disease at this time. Infect Dis PN-Objective Data - Labs CBC & Chem 7: 01/12/18 04:00 01/12/18 04:00 Labs: Laboratory Results - last 24 hr 01/11/18 01/11/18 01/11/18 11:47 15:28 21:20 WBC RBC Hgb Hct MCV MCH MCHC RDW Plt Count MPV Immature Gran % Seg Neutrophils % Lymphocytes % Monocytes % Eosinophils % Basophils % Neutrophils # Lymphocytes # Monocytes # Eosinophils # Basophils # Sodium Potassium Chloride Carbon Dioxide BUN Creatinine Est GFR ( Amer) Est GFR (Non-Af Amer) BUN/Creatinine Ratio Glucose POC Glucose 168 H 192 H 219 H Calculated Osmolality Calcium Phosphorus Magnesium 01/12/18 01/12/18 04:00 04:00 WBC 10.6 RBC 3.44 L Hgb 9.4 L Hct 31.4 L MCV 91.3 MCH 27.3 L MCHC 29.9 L RDW 14.5 Plt Count 166 MPV 10.7 Immature Gran % 0.8 Seg Neutrophils % 75.7 Lymphocytes % 14.7 Monocytes % 6.0 Eosinophils % 2.6 Basophils % 0.2 Neutrophils # 8.1 Lymphocytes # 1.6 Monocytes # 0.6 Eosinophils # 0.3 Basophils # 0.0 Sodium 133 L Potassium 4.4 Chloride 93 L Carbon Dioxide 31 H BUN 30 H Creatinine 2.64 H Est GFR ( Amer) 22 L Est GFR (Non-Af Amer) 18 L BUN/Creatinine Ratio 11 Glucose 158 H POC Glucose Calculated Osmolality 285 Calcium 9.1 Phosphorus 5.4 H Magnesium 2.0 Exam - Constitutional Vitals: Temp Pulse Resp BP Pulse Ox 97.5 F L 85 16 152/76 95 01/12/18 07:40 01/12/18 07:40 01/12/18 07:45 01/12/18 07:40 01/12/18 07:45 Exam: General: Patient alert, awake, oriented 3, interactive, in no acute distress HEENT: Normocephalic, atraumatic, pupils equal reactive to light, oral mucosa dry, neck supple trachea midline no palpable lymphadenopathy, Chest: Symmetric bilateral correlating with respiratory effort, effort nonlabored. Cardiac: Regular rate and rhythm, positive S1 and S2. no bruits appreciated bilateral carotids, Radial pulses 2+ bilateral, posterior tibial and dorsal pedal pulses 2+ bilateral. Respiratory: Diffuse inspiration and expiratory wheezing in all lung tran Abdomen: Soft, obese, bruising of the abdominal wall likely secondary to heparin injections, diffuse tenderness more so on the right flank and right quadrant. positive bowel sounds, no palpable masses appreciated on examination Extremities: Symmetric bilateral, bilateral lower extremity edema 1+ pitting, bilateral venous stasis, right heel pressure ulcer, coccygeal stage III decubitus ulcer, bilateral knee replacements (right side 2004, left side 2010) Neurologic: Face symmetric, muscle strength symmetric bilateral upper and lower extremities. Consult Discharge Plan - Plan Referrals: Tristen Quintana MD [Primary Care Provider] - 01/19/18 2:15 pm (Please follow up as schedule...) Prescriptions: Ertapenem [INVanz] 500 mg IVPB DAILY #10 vial - Attending Attestation I examined this patient and my medical decision-making was reviewed with the Resident Physician. I agree with the documented findings, disposition and treatment plan as described except to the extent set forth below. Patient also complained of diffuse abdominal pain. I did discuss with the hospitalist team and they will pursue it further. Pulse bowel movement was one day ago. She says her appetite is much worse.
--- NOTE | 2018-01-12 08:52 | Urology Progress Note ---
Date of Encounter: 01/12/18 Time of Encounter: 08:49 - Assessment and Plan (1) UTI (urinary tract infection) Current Visit: Yes Status: Acute Qualifiers: Qualified Code(s): N30.01 - Acute cystitis with hematuria (2) Hydronephrosis Current Visit: No Status: Acute Assessment and plan: 62-year-old woman with a urinary tract infection, history of hydronephrosis, and indwelling right ureteral stent was seen in follow-up. After discussion with Dr. Molina, I feel it would be best to leave the stent in place. The primary team can remove her Hawkins catheter as she is not had urinary retention. We can see how she does with the UTIs. It is easy to remove a stent, but can somewhat be more involved to replace them. Therefore, I would like to leave the stent in place for now to continue drainage from her right kidney. Qualifiers: Qualified Code(s): N13.30 - Unspecified hydronephrosis Progress Note Narrative: Patient is doing well this morning. Her urine is still pao and the Hawkins and somewhat scant. No fevers overnight. Objective Initial Vital Signs Temp Pulse Resp BP Pulse Ox 99.2 F 116 22 181/87 94 01/05/18 22:43 01/05/18 22:43 01/05/18 22:43 01/05/18 22:43 01/05/18 22:43 - General physical appearance Present: well developed, well nourished, no distress - Respiratory Present: normal respiratory effort - Abdomen Present: soft - Genitourinary Urine Appearance: Present: Clear (clear to tea colored) - Labs 01/12/18 04:00 01/12/18 04:00 Diabetes panel 01/12/18 Range/Units 04:00 Sodium 133 L (136-145) mEq/L Potassium 4.4 (3.5-5.1) mEq/L Chloride 93 L (98-107) mEq/L Carbon Dioxide 31 H (23-29) mEq/L BUN 30 H (8-23) mg/dL Creatinine 2.64 H (0.60-1.20) mg/dL Glucose 158 H (70-105) mg/dL Calcium 9.1 (8.6-10.3) mg/dL Calcium panel 01/12/18 Range/Units 04:00 Calcium 9.1 (8.6-10.3) mg/dL Phosphorus 5.4 H (2.7-4.5) mg/dL Pituitary panel 01/12/18 Range/Units 04:00 Sodium 133 L (136-145) mEq/L Potassium 4.4 (3.5-5.1) mEq/L Chloride 93 L (98-107) mEq/L Carbon Dioxide 31 H (23-29) mEq/L BUN 30 H (8-23) mg/dL Creatinine 2.64 H (0.60-1.20) mg/dL Glucose 158 H (70-105) mg/dL Calcium 9.1 (8.6-10.3) mg/dL Adrenal panel 01/12/18 Range/Units 04:00 Sodium 133 L (136-145) mEq/L Potassium 4.4 (3.5-5.1) mEq/L Chloride 93 L (98-107) mEq/L Carbon Dioxide 31 H (23-29) mEq/L BUN 30 H (8-23) mg/dL Creatinine 2.64 H (0.60-1.20) mg/dL Glucose 158 H (70-105) mg/dL Calcium 9.1 (8.6-10.3) mg/dL Consult Discharge Plan - Plan Referrals: Tristen Quintana MD [Primary Care Provider] - 01/13/18 4:00 pm () Prescriptions: Ertapenem [INVanz] 500 mg IVPB DAILY #10 vial
[2018-01-12] MEDS ORDERED: 0.9 % Sodium Chloride 1,000 ML ONE (09:15)
[2018-01-12] MEDS: Insulin LISPRO 300 UNITS/3 ML VIAL SQ SCH ×4 (14:39→22:00)
[2018-01-12] MEDS: Metoclopramide 10 MG/10 ML UD.LIQ PO SCH ×2 (14:40→16:35)
[2018-01-12] MEDS: Calcium Acetate 667 MG CAPSULE PO SCH ×2 (14:41→16:34)
[2018-01-12] MEDS: Furosemide 40 MG TABLET PO SCH ×2 (14:41→15:08)
[2018-01-12] MEDS: Gabapentin 100 MG CAPSULE PO SCH ×3 (14:44→21:58)
[2018-01-12] MEDS: Isosorbide MONOnitrate (24 HR) 30 MG TAB.ER.24H PO SCH (15:07)
[2018-01-12] MEDS: Sennosides 8.6 MG TABLET PO SCH (15:07)
[2018-01-12] MEDS: ARIPiprazole 10 MG TABLET PO SCH (15:07)
[2018-01-12] MEDS: metOLazone 2.5 MG TABLET PO SCH (15:07)
[2018-01-12] MEDS: Renal Vitamin 1 MG CAPSULE PO SCH (15:08)
[2018-01-12] MEDS: Aspirin Enteric Coated 81 MG Tablet PO SCH (15:08)
[2018-01-12] MEDS: *HR* OxyCODONE Immed Rel 15 MG TABLET PO PRN ×2 (15:08→21:59)
[2018-01-12] MEDS: amLODIPine 5 MG TABLET PO SCH (15:09)
[2018-01-12] MEDS: Insulin DETEMIR 100 UNIT/ML X5UNITS SQ SCH ×2 (15:24→22:00)
[2018-01-12] MEDS: Nicotine 21 MG PATCH.TD24 TD SCH (15:24)
--- NOTE | 2018-01-12 16:03 | Internal Med Progress Note ---
Date of Encounter: 01/12/18 Time of Encounter: 12:45 - Time Spent With Patient Total time spent is greater than 50% in coordination of care (as documented) at patient's floor/unit and/or counseling patient: - Subjective Interval history: Pt seen and examined in hemodialysis. Reports of nausea and abd pain however noted to be eating chips during dialysis. CT abd/pelvis from 01/05/18 reported no acute abnormalities and Double J ureteral stent present on right Will d/c pereira cath after hemodialysis awaiting PT/OT evaluation however pt states she is going to not go to ECF regardless of physical therapist 's recommendations. - Assessment and plan (1) Abdominal pain Current Visit: No Status: Acute Assessment and plan: of unclear etiology CT findings reported no acute abnormalities will continue supportive care reports of having a bowel movement one day ago, will change to Senna plus two tabs PO BID continue reglan zofran prn nausea abd exam negative concern if patient is malingering for secondary gain, as she started complaining of abd pain after finding about discharge planning today Qualifiers: Abdominal location: lower abdomen, unspecified Qualified Code(s): R10.30 - Lower abdominal pain, unspecified (2) Acute on chronic respiratory failure with hypoxia Current Visit: Yes Status: Acute Assessment and plan: multifactorial with HCAP and RSV. Treat as below (3) HCAP (healthcare-associated pneumonia) Current Visit: No Status: Acute Assessment and plan: ID on board and consultation appreciated continue Ampicillin, can be switched to Amoxicillin on discharge (day 6/14) continue ertapenem for UTI, will need treatment for a total of 14 days, marriage and family social worker informed to set up abx after discharge (4) UTI (urinary tract infection) Current Visit: Yes Status: Acute Assessment and plan: urine cultures positive for E. Coli ESBL and Enterococcus species VRE, abx adjusted as per culture sensitivities ID on board and evaluation appreciated Qualifiers: Urinary tract infection type: acute cystitis Hematuria presence: with hematuria Qualified Code(s): N30.01 - Acute cystitis with hematuria (5) ESRD (end stage renal disease) Current Visit: Yes Status: Acute Assessment and plan: Dialysis per nephrology. s/p HD today (01/12/18) Nephrology evaluation appreciated (6) CAD (coronary artery disease) Current Visit: Yes Status: Acute Assessment and plan: Continue aspirin, Plavix, Coreg. Qualifiers: Coronary Disease-Associated Artery/Lesion type: unspecified vessel or lesion type [place] vs. transplanted heart: unspecified whether [place] or transplanted heart Associated angina: without angina Qualified Code(s): I25.10 - Atherosclerotic heart disease of [place] coronary artery without angina pectoris (7) Diabetes mellitus Current Visit: Yes Status: Acute Assessment and plan: BG better controlled with Levemir 15units BID Continue Accu-Cheks. sliding scale insulin algorithm as needed ADA diet Qualifiers: Diabetes mellitus type: type 2 Diabetes mellitus photo print specialist insulin use: with photo print specialist use Diabetes mellitus complication status: with hyperglycemia Qualified Code(s): E11.65 - Type 2 diabetes mellitus with hyperglycemia; Z79.4 - collision mechanic (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 of insulin; Z79.4 - collision mechanic (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 of insulin; Z79.4 - care home (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 of insulin; Z79.4 - care home (current ) use of insulin (8) Pressure ulcer of coccygeal region, stage 3 Current Visit: Yes Status: Acute Assessment and plan: wound consulted and following (9) Pressure ulcer, heel, right, unstageable Current Visit: Yes Status: Acute Assessment and plan: wound care (10) DVT prophylaxis Current Visit: Yes Status: Acute Assessment and plan: Heparin subcutaneous - Constitutional Vitals: Temp Pulse Resp BP Pulse Ox 97.7 F 93 17 154/85 100 01/12/18 15:30 01/12/18 15:30 01/12/18 15:30 01/12/18 15:30 01/12/18 15:30 General appearance: Present: A&O X 3, no acute distress, obese, answers questions appropriately - Head Head exam: Present: atraumatic, normocephalic - Eye Eye exam: Present: conjuntiva pink, sclera anicteric - Respiratory Respiratory exam: Present: CTAB. Absent: respiratory distress, wheezes - Cardiovascular Cardiovascular exam: Present: RRR, +S1, +S2. Absent: diastolic murmur, gallop, rubs, systolic murmur - GI/Abdominal GI/Abdominal exam: Present: normal bowel sounds, soft, no peritoneal signs. Absent: distended, tenderness - Extremities Exam Extremities exam: Present: pedal edema, warm, radial pulses palpable and symmetrical. Absent: calf tenderness, tenderness - Neurological Exam Neurological exam: Present: oriented X3 Internal Medicine: Result - Labs CBC & Chem 7: 01/12/18 04:00 01/12/18 04:00 Labs: Short CBC 01/12/18 Range/Units 04:00 WBC 10.6 (4.3-11.1) K/mcL Hgb 9.4 L (11.5-15.4) g/dL Hct 31.4 L (35.3-44.9) % Plt Count 166 (140-400) K/mcL Neutrophils # 8.1 (1.6-8.9) K/mcL BMP 01/12/18 04:00 Sodium 133 L Potassium 4.4 Chloride 93 L Carbon Dioxide 31 H BUN 30 H Creatinine 2.64 H Glucose 158 H Calcium 9.1 - ABG Interpretation ABG results: PT/INR, D-dimer PT 14.2 Seconds (9.4-12.1) H 01/06/18 04:57 Consult Discharge Plan - Plan Referrals: Tristen Quintana MD [Primary Care Provider] - 01/19/18 2:15 pm (Please follow up as schedule...) Prescriptions: Ertapenem [INVanz] 500 mg IVPB DAILY #10 vial
--- NOTE | 2018-01-12 17:31 | Nephrology Progress Note ---
Date of Encounter: 01/12/18 Time of Encounter: 11:00 - Assessment and Plan (1) ESRD (end stage renal disease) Current Visit: Yes Status: Acute Continue HD with UF as tolerated 24 hr urine for Crcl showed verl low urine volume and crcl of 6 Lytes WNL except sodium slightly low due to fluid overload but improves with UF UOP at 250cc in the past 24hrs, will monitor (2) Fluid overload Current Visit: Yes Status: Acute s/p UF yesterday Continued fluid restriction advised Qualifiers: Hypervolemia type: unspecified Qualified Code(s): E87.70 - Fluid overload, unspecified (3) UTI (urinary tract infection) Current Visit: Yes Status: Acute culture results noted, abx per primary team and ID Urology recs appreciated Qualifiers: Urinary tract infection type: acute cystitis Hematuria presence: with hematuria Qualified Code(s): N30.01 - Acute cystitis with hematuria Subjective Principal diagnosis: ESRD on dialysis, fluid overload Interval history: Interim noted; Pt seen and examined on HD with no new complaints. s/p UF yesterday Objective - Vital Signs Vital signs: Vital Signs Temp Pulse Resp BP Pulse Ox 01/12/18 15:30 97.7 F 93 17 154/85 100 01/12/18 12:57 97 F L 18 168/79 01/12/18 12:25 160/75 01/12/18 12:10 146/71 01/12/18 12:00 99.1 F 89 17 142/71 98 01/12/18 11:55 176/77 01/12/18 11:40 162/60 01/12/18 11:25 149/55 01/12/18 11:10 157/72 01/12/18 10:55 140/66 01/12/18 10:40 128/91 01/12/18 10:25 153/65 01/12/18 10:10 154/59 01/12/18 09:55 124/76 01/12/18 09:40 137/47 01/12/18 09:25 138/63 01/12/18 09:10 148/66 01/12/18 08:55 97 F L 18 145/59 01/12/18 07:45 16 95 01/12/18 07:40 97.5 F L 85 16 152/76 94 01/12/18 05:11 98.6 F 84 17 146/74 99 01/12/18 00:34 98.5 F 85 18 154/75 99 01/11/18 21:29 98.2 F 90 16 122/56 91 01/11/18 21:00 16 98 01/11/18 20:54 14 98 Intake and Output 01/12/18 01/12/18 01/12/18 07:59 15:59 23:59 Intake Total 100 / 100 960 / 960 Output Total 550 / 550 4600 / 4600 200 / 200 Balance -450 / -450 -3640 / -3640 -200 / -200 Intake: IV Fluids 100 / 100 Ampicillin 2 GM In 0.9 % Sodium 100 / 100 Chloride (Mini-Bag +) 100 ML @ 200 mls/hr IVPB Q12H [facility] Rx#: [id number] Oral 360 / 360 Intake, Rinseback and Flushes 600 / 600 Output: Urine 0 / 0 Total Dialysis (HD) Output 4600 / 4600 Catheter 550 / 550 200 / 200 Other: Meal Breakfast Percent of Meal Consumed 100% Weight 110.1 kg Blood Glucose* 130 265 Hemodialysis Net Fluid Removed 4000 (mL) Patient Weight 01/12/18 23:59 Weight 110.1 kg - General Appearance General appearance: Present: chronically ill EENT: Present: ATNC, mucous membranes moist Neck: Present: no JVD, supple Respiratory: Present: clear Cardiology: Present: edema, normal S1, normal S2 Dialysis Vascular Access: Arteriovenous Fistula thrill: Yes bruit: Yes Gastrointestinal: Present: no tenderness, no guarding, obese Integumentary: Present: warm and dry Neurologic: Present: no focal deficit Musculoskeletal: Present: no deformities Psychiatric: Present: mood/affect appropriate - Lab 01/12/18 04:00 01/12/18 04:00 Most recent lab results Calcium 9.1 mg/dL (8.6-10.3) 01/12/18 04:00 Phosphorus 5.4 mg/dL (2.7-4.5) H 01/12/18 04:00 Magnesium 2.0 mg/dL (1.6-2.6) 01/12/18 04:00 Urine Creatinine 99 mg/dL 01/08/18 08:05 Ur Total Protein 24 Hr 1374 mg/day (50-80) H 01/08/18 08:05 Urine Total Protein 723 mg/dL (1-14) H 01/08/18 08:05 Consult Discharge Plan - Plan Referrals: Tristen Quintana MD [Primary Care Provider] - 01/19/18 2:15 pm (Please follow up as schedule...) Prescriptions: Ertapenem [INVanz] 500 mg IVPB DAILY #10 vial
[2018-01-12] MEDS: Sennosides/Docusate Sodium TABLET PO SCH (21:58)
[2018-01-13 03:59] LABS: Basophils # 0.1 K/mcL (0.0-0.2); Basophils % 0.8 %; Eosinophils # 0.2 K/mcL (0.0-0.6); Hematocrit 29.3 % (35.3-44.9); Hemoglobin 8.8 g/dL (11.5-15.4); Immature Platelets 2.8 % (1.1-6.1); Lymphocytes # 1.6 K/mcL (0.6-4.6); Mean Corpuscular Hemoglobin 27.2 pg (28.0-33.3); Mean Corpuscular Volume 90.7 fL (83.0-100.0); Monocytes # 0.7 K/mcL (0.0-1.3); Monocytes % 8.5 %; Neutrophils # 5.2 K/mcL (1.6-8.9); Platelet Count 182 K/mcL (140-400); Red Blood Count 3.23 M/mcL (3.82-4.97); Red Cell Distribution Width 14.6 % (11.5-14.5); Segmented Neutrophils % 66.7 %
[2018-01-13 04:39] LABS: Magnesium 2.2 mg/dL (1.6-2.6); Phosphorous 5.1 mg/dL (2.7-4.5); Potassium 4.2 mEq/L (3.5-5.1)
[2018-01-13] MEDS: *HR* Heparin 5,000 UNIT/ML VIAL SQ SCH (04:57)
[2018-01-13] MEDS: Ampicillin 2 GM in 0.9 % Sodium Chloride Mini Bag 100 ML IVPB SCH (04:58)
[2018-01-13] MEDS: Budesonide/Formoterol 160/4.5 MDI IH SCH (07:42)
[2018-01-13] MEDS: Calcium Acetate 667 MG CAPSULE PO SCH ×2 (08:04→12:07)
[2018-01-13] MEDS: ARIPiprazole 10 MG TABLET PO SCH (08:04)
[2018-01-13] MEDS: Metoclopramide 10 MG/10 ML UD.LIQ PO SCH ×2 (08:04→12:07)
[2018-01-13] MEDS: amLODIPine 5 MG TABLET PO SCH (08:05)
[2018-01-13] MEDS: metOLazone 2.5 MG TABLET PO SCH (08:05)
[2018-01-13] MEDS: Gabapentin 100 MG CAPSULE PO SCH (08:05)
[2018-01-13] MEDS: Sennosides/Docusate Sodium TABLET PO SCH (08:05)
[2018-01-13] MEDS: Furosemide 40 MG TABLET PO SCH (08:05)
[2018-01-13] MEDS: Renal Vitamin 1 MG CAPSULE PO SCH (08:05)
[2018-01-13] MEDS: *HR* OxyCODONE Immed Rel 15 MG TABLET PO PRN (08:05)
[2018-01-13] MEDS: Aspirin Enteric Coated 81 MG Tablet PO SCH (08:05)
[2018-01-13] MEDS: Isosorbide MONOnitrate (24 HR) 30 MG TAB.ER.24H PO SCH (08:06)
[2018-01-13] MEDS: Insulin DETEMIR 100 UNIT/ML X5UNITS SQ SCH (08:06)
[2018-01-13] MEDS: Nicotine 21 MG PATCH.TD24 TD SCH (08:06)
[2018-01-13] MEDS: Insulin LISPRO 300 UNITS/3 ML VIAL SQ SCH ×2 (08:07→12:08)
--- NOTE | 2018-01-13 09:24 | Infectious Disease Progress No ---
Date of Encounter: 01/13/18 Time of Encounter: 08:30 - Assessment and Plan (1) RSV (respiratory syncytial virus pneumonia) Current Visit: Yes Status: Acute Viral PCR positive for RSV - Likely contributing to increased shortness of breath, low-grade fever and tachycardia. 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 Most recently urine culture in June 2018 positive for vancomycin-resistant enterococcus and ESBL - Previous organisms demonstrate Masha tropicalis, E.coli MDRO, Klebsiella pneumoniae, Proteus mirablis ESBL - Patient seen by urology as she has ureter stent, no plans to remove stent at this time but may require stent removal in the future if recurrence of UTI. Current antibiotic coverage: Ertapenem (day 6) recommend total of 14 days antibiotic coverage. Through January 21 Ampicillin 2gm q12hr IV ( day 4) for coverage for pneumonia Qualifiers: Urinary tract infection type: acute cystitis Hematuria presence: with hematuria Qualified Code(s): N30.01 - Acute cystitis with hematuria (4) ESRD on hemodialysis Current Visit: No Status: Chronic Management per nephrology and primary team. (5) Venous stasis dermatitis of both lower extremities Current Visit: No Status: Chronic Increased blanchable erythema bilateral lower extremities, likely secondary to dependent edema. (6) Decubitus ulcer of sacral region, stage 3 Current Visit: No Status: Chronic Chronic, wound care is managing dressing changes. (7) Decubitus ulcer, heel, right, unstageable Current Visit: No Status: Acute Chronic, wound care is managing dressing changes. (8) Thrombocytopenia Current Visit: Yes Status: Acute Patient demonstrates worsening of thrombocytopenia after initiation of Zyvox, Zyvox d/c'd. Plt 182 - We will adjust antibiotic coverage from Zyvox as this increases the risk of further thrombocytopenia complications. - Zyvox with combination of SSRIs also increases the risk of serotonin syndrome. - Subjective Interval history: Mr. Riley has been seen about a patient bedside this morning. She is alert awake interactive no acute distress. She denies any fevers, chills, diaphoresis or acute changes overnight. She does note reddening of bilateral lower extremities but denies any pain or discomfort. She has tolerated oral intake and denies any other questions at this time. Infect Dis PN-Objective Data - Labs CBC & Chem 7: 01/13/18 03:31 01/13/18 03:31 Labs: Laboratory Results - last 24 hr 01/12/18 01/12/18 01/13/18 11:46 15:17 03:31 WBC 7.8 RBC 3.23 L Hgb 8.8 L Hct 29.3 L MCV 90.7 MCH 27.2 L MCHC 30.0 L RDW 14.6 H Plt Count 182 MPV 10.0 Immature Gran % 1.0 Seg Neutrophils % 66.7 Lymphocytes % 20.0 Monocytes % 8.5 Eosinophils % 3.0 Basophils % 0.8 Neutrophils # 5.2 Lymphocytes # 1.6 Monocytes # 0.7 Eosinophils # 0.2 Basophils # 0.1 Immature Plt Fraction 2.8 Sodium Potassium Chloride Carbon Dioxide BUN Creatinine Est GFR ( Amer) Est GFR (Non-Af Amer) BUN/Creatinine Ratio Glucose POC Glucose 138 H 265 H Calculated Osmolality Calcium Phosphorus Magnesium 01/13/18 03:31 WBC RBC Hgb Hct MCV MCH MCHC RDW Plt Count MPV Immature Gran % Seg Neutrophils % Lymphocytes % Monocytes % Eosinophils % Basophils % Neutrophils # Lymphocytes # Monocytes # Eosinophils # Basophils # Immature Plt Fraction Sodium 132 L Potassium 4.2 Chloride 94 L Carbon Dioxide 32 H BUN 22 Creatinine 2.13 H Est GFR ( Amer) 28 L Est GFR (Non-Af Amer) 23 L BUN/Creatinine Ratio 10 Glucose 179 H POC Glucose Calculated Osmolality 282 Calcium 9.0 Phosphorus 5.1 H Magnesium 2.2 Exam - Constitutional Vitals: Temp Pulse Resp BP Pulse Ox 97.9 F 87 18 137/73 98 01/13/18 07:31 01/13/18 07:31 01/13/18 07:44 01/13/18 07:31 01/13/18 07:44 Exam: General: Patient alert, awake, oriented 3, interactive, in no acute distress HEENT: Normocephalic, atraumatic, pupils equal reactive to light, oral mucosa dry, neck supple trachea midline no palpable lymphadenopathy, Chest: Symmetric bilateral correlating with respiratory effort, effort nonlabored. Cardiac: Regular rate and rhythm, positive S1 and S2. no bruits appreciated bilateral carotids, Radial pulses 2+ bilateral, posterior tibial and dorsal pedal pulses 2+ bilateral. Respiratory: Diffuse inspiration and expiratory wheezing in all lung tran Abdomen: Soft, obese, bruising of the abdominal wall likely secondary to heparin injections, diffuse tenderness more so on the right flank and right quadrant. positive bowel sounds, no palpable masses appreciated on examination Extremities: Symmetric bilateral, bilateral lower extremity edema 1+ pitting, bilateral venous stasis, right heel pressure ulcer, coccygeal stage III decubitus ulcer, bilateral knee replacements (right side 2004, left side 2010) Neurologic: Face symmetric, muscle strength symmetric bilateral upper and lower extremities. Consult Discharge Plan - Plan Instructions: Heart Failure (DC) Additional Instructions: Please follow up with your primary care physician within five days after your discharge from the hospital. Please follow up with infectious disease specialist and urology within two to three weeks after your discharge from the hospital. Please follow up with your hemodialysis sessions Wednesday Continue oral Amoxicillin 500mg once daily (evening dose) for seven more days. Continue IV Ertapenem as prescribed. Reglan has been added to your home medications, please inform your primary care physician of this change. Resume all other home medications as prescribed by your primary care physician. Referrals: Tristen Quintana MD [Primary Care Provider] - 01/19/18 2:15 pm (Please follow up as schedule...) Prescriptions: Amoxicillin 500 mg PO QPM #7 tablet Ertapenem [INVanz] 500 mg IVPB DAILY #10 vial Metoclopramide [Reglan] 5 mg PO TIDAC #15 [email or web address] - Attending Attestation I examined this patient and my medical decision-making was reviewed with the Resident Physician. I agree with the documented findings, disposition and treatment plan as described except to the extent set forth below.
--- NOTE | 2018-01-13 11:00 | Nephrology Progress Note ---
<Cammie Hare - Last Filed: 01/13/18 11:01> Date of Encounter: 01/13/18 Time of Encounter: 10:58 - Assessment and Plan (1) ESRD (end stage renal disease) on dialysis Status: Chronic Plan for HD tomorrow tomorrow if still here. UOP 750ml Continue renal diet Avoid nephrotoxins if possible Patient is grossly non-compliant with her outpatient HD treatments; does better when in an ECF. Highly recommend patient go to an ECF upon discharge (2) Fluid overload Status: Resolved Qualifiers: Hypervolemia type: unspecified Qualified Code(s): E87.70 - Fluid overload, unspecified (3) Non-compliance with renal dialysis Status: Acute Grossly non-complaint Subjective Principal diagnosis: ESRD on dialysis, fluid overload Interval history: Patient seen and examined, sleeping soundly Objective - Vital Signs Vital signs: Vital Signs Temp Pulse Resp BP Pulse Ox 01/13/18 07:44 18 98 01/13/18 07:31 97.9 F 87 16 137/73 100 01/13/18 05:17 97.4 F L 90 16 157/62 98 01/13/18 01:00 98.0 F 91 20 155/75 98 01/12/18 21:28 97.5 F L 88 20 150/75 100 01/12/18 20:08 18 98 01/12/18 15:30 97.7 F 93 17 154/85 100 01/12/18 12:57 97 F L 18 168/79 01/12/18 12:25 160/75 01/12/18 12:10 146/71 01/12/18 12:00 99.1 F 89 17 142/71 98 01/12/18 11:55 176/77 01/12/18 11:40 162/60 01/12/18 11:25 149/55 01/12/18 11:10 157/72 Intake and Output 01/12/18 01/13/18 01/13/18 23:59 07:59 15:59 Intake Total 0 / 0 0 / 0 270 / 270 Output Total 200 / 200 0 / 0 Balance -200 / -200 0 / 0 270 / 270 Intake: Oral 0 / 0 0 / 0 270 / 270 Output: Urine 0 / 0 Catheter 200 / 200 Other: Meal Breakfast Percent of Meal Consumed 90% Weight 112.2 kg Blood Glucose* 349 160 Patient Weight 01/13/18 23:59 Weight 112.2 kg - General Appearance General appearance: Present: obese EENT: Present: ATNC Neck: Present: supple Cardiology: Present: edema, normal S1, normal S2 Dialysis Vascular Access: Arteriovenous Fistula Gastrointestinal: Present: no tenderness, no guarding Integumentary: Present: warm and dry - Lab 01/13/18 03:31 01/13/18 03:31 Most recent lab results Calcium 9.0 mg/dL (8.6-10.3) 01/13/18 03:31 Phosphorus 5.1 mg/dL (2.7-4.5) H 01/13/18 03:31 Magnesium 2.2 mg/dL (1.6-2.6) 01/13/18 03:31 Urine Creatinine 99 mg/dL 01/08/18 08:05 Ur Total Protein 24 Hr 1374 mg/day (50-80) H 01/08/18 08:05 Urine Total Protein 723 mg/dL (1-14) H 01/08/18 08:05 Consult Discharge Plan - Plan Instructions: Heart Failure (DC) Additional Instructions: Please follow up with your primary care physician within five days after your discharge from the hospital. Please follow up with infectious disease specialist and urology within two to three weeks after your discharge from the hospital. Please follow up with your hemodialysis sessions Wednesday Continue oral Amoxicillin 500mg once daily (evening dose) for seven more days. Continue IV Ertapenem as prescribed. Reglan has been added to your home medications, please inform your primary care physician of this change. Resume all other home medications as prescribed by your primary care physician. Referrals: Tristen Quintana MD [Primary Care Provider] - 01/19/18 2:15 pm (Please follow up as schedule...) Prescriptions: Metoclopramide [Reglan] 5 mg PO TIDAC #15 [email or web address] <Luma Mendez - Last Filed: 02/10/18 22:48> Date of Encounter: 01/13/18 - Assessment and Plan (1) ESRD (end stage renal disease) Status: Chronic (2) Fluid overload Status: Resolved Qualifiers: Hypervolemia type: unspecified Qualified Code(s): E87.70 - Fluid overload, unspecified (3) UTI (urinary tract infection) Status: Acute Qualifiers: Urinary tract infection type: acute cystitis Hematuria presence: with hematuria Qualified Code(s): N30.01 - Acute cystitis with hematuria Objective - Lab 01/13/18 03:31 01/13/18 03:31 Most recent lab results Calcium 9.0 mg/dL (8.6-10.3) 01/13/18 03:31 Phosphorus 5.1 mg/dL (2.7-4.5) H 01/13/18 03:31 Magnesium 2.2 mg/dL (1.6-2.6) 01/13/18 03:31 Urine Creatinine 99 mg/dL 01/08/18 08:05 Ur Total Protein 24 Hr 1374 mg/day (50-80) H 01/08/18 08:05 Urine Total Protein 723 mg/dL (1-14) H 01/08/18 08:05 - Attending Attestation I examined this patient and my medical decision-making was reviewed with the Resident Physician/WEB APPLICATIONS PROGRAMMER. I agree with the documented findings, disposition and treatment plan as described except to the extent set forth below. Pt seen an examined with no new complaints, seems to like being taken care of in the hospital. History of frequent hospital stays but refuses ECF on discharge. Next HD planned for tomorrow if still hospitalized with aggressive UF for persistent LE edema.
[2018-01-13 11:35] VITALS: BP 156/76
--- NOTE | 2018-01-13 12:24 | Discharge Summary ---
- NOTES TO OUTPATIENT PROVIDER Notes to Outpatient Provider: pt to continue ertapenem for a total of 14 days. Reglan has been added to her home medications as patient was complaining of abdominal pain and discomfort, which resolved after initiation of Reglan Date of Encounter: 01/13/18 Time of Encounter: 11:35 - Discharge Diagnosis (1) Abdominal pain Priority: Secondary Status: Resolved Qualifiers: Abdominal location: generalized Qualified Code(s): R10.84 - Generalized abdominal pain (2) Acute on chronic respiratory failure with hypoxia Priority: Primary Status: Resolved (3) CAD (coronary artery disease) Priority: Secondary Status: Chronic Qualifiers: Coronary Disease-Associated Artery/Lesion type: [place] artery [place] vs. 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 ; 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; 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; Z99.2 - Dependence on renal dialysis; Z99.2 - Dependence on renal dialysis; Z99.2 - Dependence on renal dialysis; Z99.2 - Dependence on renal dialysis; E11.65 - Type 2 diabetes mellitus with hyperglycemia; E11.65 - Type 2 diabetes mellitus with hyperglycemia; E11.65 - Type 2 diabetes mellitus with hyperglycemia; N18.6 - End stage renal disease; N18.6 - End stage renal disease ; N18.6 - End stage renal disease; N18.6 - End stage renal disease; 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 (5) DVT prophylaxis Priority: Secondary Status: Acute (6) ESRD (end stage renal disease) on dialysis Priority: Secondary Status: Chronic (7) HCAP (healthcare-associated pneumonia) Priority: Primary Status: Acute (8) HTN (hypertension) Priority: Secondary Status: Chronic Qualifiers: Hypertension type: essential hypertension Qualified Code(s): I10 - Essential (primary) hypertension (9) Pressure ulcer of coccygeal region, stage 3 Priority: Secondary Status: Chronic (10) Pressure ulcer, heel, right, unstageable Priority: Secondary Status: Chronic (11) UTI (urinary tract infection) Priority: Primary Status: Acute Qualifiers: Urinary tract infection type: acute cystitis Hematuria presence: with hematuria Qualified Code(s): N30.01 - Acute cystitis with hematuria (12) Congestive heart failure Priority: Secondary Status: Acute Qualifiers: Heart failure type: unspecified Heart failure chronicity: chronic Qualified Code(s): I50.9 - Heart failure, unspecified Hospital course: Ms. Riley is a 62 year old female with PMH of COPD on LTOT, ESRD on HD, DM, HTN , HLD, CAD, CHF who was admitted for acute respiratory distress secondary to missed hemodialysis appointments. Pt was further found to have HCAP and UTI with ESBL and VRE. She was started on IV abx. She was followed by nephrology and her hemodialysis sessions were continued. She also complained of abd discomfort and imaging findings were negative for any acute abnormalities. ID was consulted for abx management given urine culture results. ID consulted urology given recurrent UTI with ESBL and concern for colonization vs infected urinary stent. Urology recommended to keep the stent in place however discontinue pereira support. Pt was also evaluated by physical therapy and ECF was recommended. She continues to refuse ECF placement and only wants home health services. Pt continues to have multiple hospitalizations due to noncompliance as she has history of missing numerous hemodialysis appointments. At this time pt is hemodynamically stable and will be discharged to home with continuation of IV abx, and home health services. She is to follow up with PCP, ID, urology, and nephrology after discharge. She is to continue with her scheduled hemodialysis appointments. Pt demonstrates understanding of her diagnosis and agrees to remain compliant with her treatment plan. She is in agreement to the discharge care and plan. Discharge discussed with: patient, nurse, case management - Time Spent with Patient Total time spent providing and/or coordinating discharge services: Greater than 30 minutes - Discharge Medications Prescriptions: Amoxicillin 500 mg PO QPM #7 tablet Ertapenem [INVanz] 500 mg IVPB DAILY #10 vial Metoclopramide [Reglan] 5 mg PO TIDAC #15 ud.liq Home Medications: Omeprazole [PriLOSEC] 20 mg PO DAILY 05/11/15 [History] Colestipol HCl [Colestid] 1 gm PO BID 06/12/15 [History] Carvedilol 12.5 mg PO BID 10/28/15 [History] Calcium Acetate [Phos-LO] 1,334 mg PO TIDWM 09/06/16 [History] Folic Acid/Vit Bcomp,C [Renal Vitamin Tablet] 0.8 mg PO DAILY 04/15/17 [History] ARIPiprazole [Abilify] 10 mg PO DAILY 09/13/17 [History] Aspirin Enteric Coated [Aspirin EC] 81 mg PO DAILY 09/13/17 [History] Budesonide/Formoterol 160/4.5 [Symbicort 160/4.5] 2 puff IH BIDR 09/13/17 [ History] Cholecalciferol (Vitamin D3) [Vitamin D3] 50,000 unit PO TH 09/13/17 [History] OxyCODONE/APAP 10/325 [Percocet 10/325 MG] 1 tab PO Q6H PRN 09/13/17 [History] Sennosides [Senna] 8.8 mg PO BID 09/13/17 [History] Sevelamer [Renvela] 800 mg PO TID 09/13/17 [History] Albuterol Neb [AccuNeb] 0.63 mg IH Q6H PRN 10/18/17 [History] Gabapentin [Neurontin] 100 mg PO TID #60 capsule 10/21/17 [Rx] Collagenase Oint [Santyl] 1 appl TP DAILY 11/11/17 [History] Oxybutynin [Ditropan] 5 mg PO TID 11/11/17 [History] Isosorbide MONOnitrate (24 HR) [Imdur] 30 mg PO DAILY #30 tab.er.24h 11/19/17 [ Rx] Insulin LISPRO [Humalog Kwikpen U-100] 0 unit SQ ACHS 11/25/17 [History] Acetaminophen [Tylenol] 650 mg PO Q6HR PRN tablet 12/14/17 [Rx] Amitriptyline HCl 100 mg PO HS 12/22/17 [History] Morphine Sulfate SR (12 HR) [MS Contin] 30 mg PO Q12HR 12/22/17 [History] Rosuvastatin [Crestor] 10 mg PO HS 12/22/17 [History] amLODIPine [Norvasc] 5 mg PO DAILY 12/30/17 [History] Insulin Glargine,Hum.rec.anlog [Basaglar Kwikpen U-100] 60 unit SQ BID 01/06/18 [History] metOLazone [Zaroxolyn] 2.5 mg PO DAILY 01/06/18 [History] Ertapenem [INVanz] 500 mg IVPB DAILY #10 vial 01/11/18 [Rx] Amoxicillin 500 mg PO QPM #7 tablet 01/13/18 [Rx] Metoclopramide [Reglan] 5 mg PO TIDAC #15 ud.liq 01/13/18 [Rx] Allergies/Adverse Reactions: 3 Allergy/AdvReac Type Severity Reaction Status Date / Time No Known Allergies Allergy Verified 01/06/18 09:30 Date of admission: 01/08/18 11:33 Primary care physician: Tristen Quintana MD Consults: 01/09/18 16:10 Consult to Infectious Diseases [CONS] Routine Consulting Provider: Infectious Disease [place] Reason for Consult: recurrent UTI with VRE and ESBL, abx management Call Completed: Yes 01/10/18 08:30 Consult to Dialysis [CONS] ONCE 01/11/18 08:30 Consult to Dialysis [CONS] ONCE 01/11/18 11:45 Consult to Dialysis [CONS] ONCE 01/11/18 16:14 Consult to Invasive Line Access Team [CONS] Routine Reason for Consult: home atb Line Type: EPIV 01/12/18 08:45 Consult to Dialysis [CONS] ONCE Discharging clinician: Cecilia Velasquez Anticipated date of discharge: 01/13/18 - Constitutional Vitals: Temp Pulse Resp BP Pulse Ox 97.6 F 87 16 156/76 98 01/13/18 11:29 01/13/18 11:29 01/13/18 11:29 01/13/18 11:29 01/13/18 11:29 General appearance: Present: A&O X 3, no acute distress, obese, answers questions appropriately - Head Head exam: Present: atraumatic, normocephalic - Eye Eye exam: Present: conjuntiva pink, sclera anicteric - Respiratory Respiratory exam: Absent: rales, respiratory distress, wheezes - Cardiovascular Cardiovascular exam: Present: RRR, +S1, +S2. Absent: diastolic murmur, gallop, rubs, systolic murmur - GI/Abdominal GI/Abdominal exam: Present: normal bowel sounds, soft, no peritoneal signs. Absent: distended, tenderness - Extremities Exam Extremities exam: Present: pedal edema, warm, radial pulses palpable and symmetrical. Absent: calf tenderness - Neurological Exam Neurological exam: Present: oriented X3 - Patient Status Disposition: Home Health Service Condition: Good Functional capacity at discharge: uses cane/walker Overall status at discharge: patient is back to baseline - Discharge Instructions Follow Up With: Tristen Quintana MD [Primary Care Provider] - 01/19/18 2:15 pm (Please follow up as schedule...) Additional Instructions: Please follow up with your primary care physician within five days after your discharge from the hospital. Please follow up with infectious disease specialist and urology within two to three weeks after your discharge from the hospital. Please follow up with your hemodialysis sessions Wednesday Continue oral Amoxicillin 500mg once daily (evening dose) for seven more days. Continue IV Ertapenem as prescribed. Reglan has been added to your home medications, please inform your primary care physician of this change. Resume all other home medications as prescribed by your primary care physician. - Diet and Activity Activity: as per physical therapy, wear oxygen at all times, wear oxygen at night Diet: diabetic diet, low fat, low cholesterol, low salt diet
--- NOTE | 2018-01-13 12:55 | Physician Discharge Referral ---
Home Health/Hosp Referral Info Transfer to: Home Health Provider in Charge Post Discharge: PCP - Diagnosis (1) Abdominal pain Priority: Secondary Status: Resolved (2) Acute on chronic respiratory failure with hypoxia Priority: Primary Status: Resolved (3) CAD (coronary artery disease) Priority: Secondary Status: Chronic (4) Diabetes type 2, uncontrolled Priority: Secondary Status: Chronic (5) DVT prophylaxis Priority: Secondary Status: Acute (6) ESRD (end stage renal disease) on dialysis Priority: Secondary Status: Chronic (7) HCAP (healthcare-associated pneumonia) Priority: Primary Status: Acute (8) HTN (hypertension) Priority: Secondary Status: Chronic (9) Pressure ulcer of coccygeal region, stage 3 Priority: Secondary Status: Chronic (10) Pressure ulcer, heel, right, unstageable Priority: Secondary Status: Chronic (11) UTI (urinary tract infection) Priority: Primary Status: Acute (12) Congestive heart failure Priority: Secondary Status: Chronic - Respiratory Orders Smoking Cessation: Smoking cessation has been advised. For more information, call the [place] Tobacco Quit Line at 8-983-PEWP-NOW. - Services Needed Following services are medically necessary services: Nursing, Home Health Aide, Physical Therapy, Occupational Therapy, Home Infusion - Transfer Medications Prescriptions: Amoxicillin 500 mg PO QPM #7 tablet Ertapenem [INVanz] 500 mg IVPB DAILY #10 vial Metoclopramide [Reglan] 5 mg PO TIDAC #15 ud.liq Home Medications: Omeprazole [PriLOSEC] 20 mg PO DAILY 05/11/15 [History] Colestipol HCl [Colestid] 1 gm PO BID 06/12/15 [History] Carvedilol 12.5 mg PO BID 10/28/15 [History] Calcium Acetate [Phos-LO] 1,334 mg PO TIDWM 09/06/16 [History] Folic Acid/Vit Bcomp,C [Renal Vitamin Tablet] 0.8 mg PO DAILY 04/15/17 [History] ARIPiprazole [Abilify] 10 mg PO DAILY 09/13/17 [History] Aspirin Enteric Coated [Aspirin EC] 81 mg PO DAILY 09/13/17 [History] Budesonide/Formoterol 160/4.5 [Symbicort 160/4.5] 2 puff IH BIDR 09/13/17 [ History] Cholecalciferol (Vitamin D3) [Vitamin D3] 50,000 unit PO TH 09/13/17 [History] OxyCODONE/APAP 10/325 [Percocet 10/325 MG] 1 tab PO Q6H PRN 09/13/17 [History] Sennosides [Senna] 8.8 mg PO BID 09/13/17 [History] Sevelamer [Renvela] 800 mg PO TID 09/13/17 [History] Albuterol Neb [AccuNeb] 0.63 mg IH Q6H PRN 10/18/17 [History] Gabapentin [Neurontin] 100 mg PO TID #60 capsule 10/21/17 [Rx] Collagenase Oint [Santyl] 1 appl TP DAILY 11/11/17 [History] Oxybutynin [Ditropan] 5 mg PO TID 11/11/17 [History] Isosorbide MONOnitrate (24 HR) [Imdur] 30 mg PO DAILY #30 tab.er.24h 11/19/17 [ Rx] Insulin LISPRO [Humalog Kwikpen U-100] 0 unit SQ ACHS 11/25/17 [History] Acetaminophen [Tylenol] 650 mg PO Q6HR PRN tablet 12/14/17 [Rx] Amitriptyline HCl 100 mg PO HS 12/22/17 [History] Morphine Sulfate SR (12 HR) [MS Contin] 30 mg PO Q12HR 12/22/17 [History] Rosuvastatin [Crestor] 10 mg PO HS 12/22/17 [History] amLODIPine [Norvasc] 5 mg PO DAILY 12/30/17 [History] Insulin Glargine,Hum.rec.anlog [Basaglar Kwikpen U-100] 60 unit SQ BID 01/06/18 [History] metOLazone [Zaroxolyn] 2.5 mg PO DAILY 01/06/18 [History] Ertapenem [INVanz] 500 mg IVPB DAILY #10 vial 01/11/18 [Rx] Amoxicillin 500 mg PO QPM #7 tablet 01/13/18 [Rx] Metoclopramide [Reglan] 5 mg PO TIDAC #15 ud.liq 01/13/18 [Rx] Allergies/Adverse Reactions: 3 Allergy/AdvReac Type Severity Reaction Status Date / Time No Known Allergies Allergy Verified 01/06/18 09:30 Certification: Further, I certify that my clinical findings support that this patient is homebound (i.e. absences from home require considerable and taxing effort and are for medical reasons or moravian services or infrequently or short duration when for other reasons) because: Homebound Reason: Patient requires assistance of a person or device to safely leave home Attestation: My signature below is to certify that this patient is under my care and that I, or nurse practitioner, or a physician's preschool assistant working with me, has a face-to -face encounter with this patient.
== END 2018-01-13 15:20 | disposition home health service (06) | DRG 291 ==
LOC: EMEROO 22:34 → 2ANU 22:34 → SUATTDRO 01-08 11:33
PROVIDERS: ADMIT Internal Medicine Nephrology; ATTEND Internal Medicine

== ENCOUNTER 2018-01-15 00:40 | Observation (INO) ==
[2018-01-15] MEDS ORDERED: Ipratropium/Albuterol Neb 3 ML IH ONE (00:49)
[2018-01-15] MEDS ORDERED: methylPREDNISolone 125 MG/2 ML VIAL IVP ONE (00:51)
--- NOTE | 2018-01-15 01:01 | Emergency Department Note ---
Disposition Clinical Impression: Bronchitis, Hypoglycemia, ESRD (end stage renal disease) COPD (chronic obstructive pulmonary disease) Qualifiers: COPD type: unspecified COPD Qualified Code(s): J44.9 - Chronic obstructive pulmonary disease, unspecified Disposition: Admitted As Inpatient Referrals: Tristen Quintana MD [Primary Care Provider] - Forms: ED Satisfaction Letter General Adult HPI - General Chief complaint: ED Shortness of Breath/Dyspnea Stated complaint: breathing problem Time Seen by Provider: 01/15/18 00:46 Source: patient, EMS Mode of arrival: EMS Limitations: no limitations Nursing Notes Reviewed: Yes Vital Signs Reviewed: Yes - History of Present Illness HPI Narrative: 62-year-old female with a history of COPD oxygen dependent on 3 L, CHF, end- stage renal disease with dialysis Wednesday presents for evaluation of dyspnea. Patient had a recent hospitalization where she was an inpatient proximally week. Patient was just discharged yesterday for RSV pneumonia. Patient states that her symptoms have not improved. Patient states she has been having a productive cough. Patient also reports chest pain over the past couple days. Noted to be across her chest. Patient denies a nausea vomiting abdominal pain. Patient states she has been taking an antibiotic. Patient also states that she has a PICC line and receives an antibiotic through the PICC line but she is not able to describe her therapy. States that she underwent dialysis yesterday. Pain Scale: 8 - Related Data Home Medications Medication Instructions Recorded Confirmed Omeprazole [PriLOSEC] 20 mg PO DAILY 05/11/15 01/15/18 Colestipol HCl [Colestid] 1 gm PO BID 06/12/15 01/15/18 Carvedilol 12.5 mg PO BID 10/28/15 01/15/18 Calcium Acetate [Phos-LO] 1,334 mg PO TIDWM 09/06/16 01/15/18 Folic Acid/Vit Bcomp,C [Renal 0.8 mg PO DAILY 04/15/17 01/15/18 Vitamin Tablet] ARIPiprazole [Abilify] 10 mg PO DAILY 09/13/17 01/15/18 Aspirin Enteric Coated [Aspirin EC] 81 mg PO DAILY 09/13/17 01/15/18 Budesonide/Formoterol 160/4.5 2 puff IH BIDR 09/13/17 01/15/18 [Symbicort 160/4.5] Cholecalciferol (Vitamin D3) 50,000 unit PO TH 09/13/17 01/15/18 [Vitamin D3] OxyCODONE/APAP 10/325 [Percocet 1 tab PO Q6H PRN 09/13/17 01/15/18 10/325 MG] Sennosides [Senna] 8.8 mg PO BID 09/13/17 01/15/18 Sevelamer [Renvela] 800 mg PO TID 09/13/17 01/15/18 Albuterol Neb [AccuNeb] 0.63 mg IH Q6H PRN 10/18/17 01/15/18 Collagenase Oint [Santyl] 1 appl TP DAILY 11/11/17 01/15/18 Oxybutynin [Ditropan] 5 mg PO TID 11/11/17 01/15/18 Insulin LISPRO [Humalog Kwikpen 0 unit SQ ACHS 11/25/17 01/15/18 U-100] Amitriptyline HCl 100 mg PO HS 12/22/17 01/15/18 Morphine Sulfate SR (12 HR) [MS 30 mg PO Q12HR 12/22/17 01/15/18 Contin] Rosuvastatin [Crestor] 10 mg PO HS 12/22/17 01/15/18 amLODIPine [Norvasc] 5 mg PO DAILY 12/30/17 01/15/18 Insulin Glargine,Hum.rec.anlog 60 unit SQ BID 01/06/18 01/15/18 [Basaglar Kwikpen U-100] metOLazone [Zaroxolyn] 2.5 mg PO DAILY 01/06/18 01/15/18 Previous Rx's Medication Instructions Recorded Gabapentin [Neurontin] 100 mg PO TID #60 capsule 10/21/17 Isosorbide MONOnitrate (24 HR) 30 mg PO DAILY #30 tab.er.24h 11/19/17 [Imdur] Acetaminophen [Tylenol] 650 mg PO Q6HR PRN tablet 12/14/17 Ertapenem [INVanz] 500 mg IVPB DAILY #10 vial 01/11/18 Amoxicillin 500 mg PO QPM #7 tablet 01/13/18 Metoclopramide [Reglan] 5 mg PO TIDAC #15 ud.liq 01/13/18 Allergies Allergy/AdvReac Type Severity Reaction Status Date / Time No Known Allergies Allergy Verified 01/06/18 09:30 All systems ED: reviewed and negative except as stated. Constitutional: Denies: fever Cardiovascular: Reports: chest pain Respiratory: Reports: cough, dyspnea. 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 - Social History Smoking Status: Current every day smoker Smokeless Tobacco Status: No Alcohol use: Reports: none Drug use: Reports: none Physical Exam - General Limitations: no limitations General appearance: alert, in no apparent distress, other (Chronically ill) - Head Head exam: atraumatic, normocephalic, normal inspection - Eye Eye exam: Present: normal appearance - ENT ENT exam: normal exam, normal oropharynx, mucous membranes moist - Neck Neck exam: Present: normal inspection - Chest Chest inspection: Present: normal inspection, symmetric chest wall rise - Respiratory Respiratory exam: Present: prolonged expiratory phase, other (Faint expiratory wheeze with bibasilar rhonchi). Absent: respiratory distress - Cardiovascular Cardiovascular exam: Present: regular rate, normal rhythm. Absent: systolic murmur - Abdominal Exam Abdominal exam: Present: soft - Extremities Exam Extremities exam: Present: pedal edema (2-3+ bilateral pedal edema to the mid tibia), other (Right upper sternal repack without overlying erythema or surrounding cellulitis. Functioning fistula in the left arm) - Back Exam Back exam: Present: normal inspection - Neurological Exam Neurological exam: Present: alert - Skin Skin exam: Present: warm, dry, intact, normal color Course Course Narrative: Patient seen and examined. Patient's records reviewed showed extensive hospital stay with a recent discharge. Patient was diagnosed with RSV pneumonia. Patient received her dialysis treatment as described. Patient will get basic lab work, chest x-ray, given the degree of the patient's wheezing will get nebs and steroids. Patient's records reviewed show that she has a history of ESBL UTI currently undergoing Invanz therapy with the PICC through January 21. Also was on Unasyn for pneumonia. Disposition likely admission - Reevaluation(s) Reevaluation #1: Patient's breathing has improved. Patient sleeping resting comfortably. Time: 01:52 Reevaluation #2: Patients resting comfortably. Awaiting labs. Spoke with lab and they are aware of the delay. Time: 02:29 Reevaluation #3: Patient's repeat blood sugar was improved. Vital Signs Temperature 98.1 F 01/15/18 00:43 Pulse Rate 92 01/15/18 00:43 Respiratory Rate 16 01/15/18 00:43 Blood Pressure 181/76 01/15/18 00:43 O2 Sat by Pulse Oximetry 96 01/15/18 00:43 Temperature 97.8 F 01/15/18 03:47 Pulse Rate 94 01/15/18 03:47 Respiratory Rate 18 01/15/18 03:47 Blood Pressure 153/77 01/15/18 03:47 O2 Sat by Pulse Oximetry 99 01/15/18 03:47 Oxygen Delivery Oxygen Delivery Nasal Cannula Medical Decision Making - [facility] Narrative Medical decision making narrative: Patient's a 62-year-old female history of COPD, CHF and end-stage renal disease. Patient had a recent hospitalization for acute hypoxemic respiratory failure. Patient was noted have RSV as well as ESBL UTI. Patient was currently receiving Zyvox to do a chart review. Patient presented with increased work of breathing. Patient was treated with nebs and steroids and had notable benefit. Patient's been sleeping resting comfortably since then. Patient would likely need continued and more aggressive respiratory support. Patient's symptoms are most likely suggestive of infectious etiology. Antibiotics were not initiated in the ER as the patient is already on Zyvox for her ESBL UTI and the patient's has confirmed RSV PCR. Patient's chronically anemic due to her renal disease. Patient will be admitted for a COPD exacerbation requiring IV steroids and aggressive respiratory support. The patient also has hypoglycemia. It appears patient does have very labile blood sugars. Patient had recurrent hospitalizations for similar complaints. Patient would likely need definitive discharge planning. - Lab Data Lab results reviewed: Yes I reviewed the patient's lab results. Result diagrams: 01/15/18 01:03 01/15/18 01:03 Lab Results 01/15/18 01/15/18 01/15/18 Range/Units 01:03 01:03 01:03 WBC 11.6 H (4.3-11.1) K/mcL RBC 3.80 L (3.82-4.97) M/mcL Hgb 10.6 L D (11.5-15.4) g/dL Hct 33.5 L (35.3-44.9) % MCV 88.2 (83.0-100.0) fL MCH 27.9 L (28.0-33.3) pg MCHC 31.6 (31.6-35.5) g/dL RDW 14.3 (11.5-14.5) % Plt Count 232 (140-400) K/mcL MPV 9.6 (9.4-12.4) fL Immature Gran % 2.8 (0-4) % Seg Neutrophils % 63.2 % Lymphocytes % 22.7 % Monocytes % 9.2 % Eosinophils % 1.4 % Basophils % 0.7 % Neutrophils # 7.4 (1.6-8.9) K/mcL Lymphocytes # 2.6 (0.6-4.6) K/mcL Monocytes # 1.1 (0.0-1.3) K/mcL Eosinophils # 0.2 (0.0-0.6) K/mcL Basophils # 0.1 (0.0-0.2) K/mcL Sodium 132 L (136-145) mEq/L Potassium 3.3 L (3.5-5.1) mEq/L Chloride 97 L (98-107) mEq/L Carbon Dioxide 27 (23-29) mEq/L BUN 26 H (8-23) mg/dL Creatinine 1.90 H (0.60-1.20) mg/dL Est GFR ( Amer) 32 L (> 60) Est GFR (Non-Af Amer) 27 L (> 60) BUN/Creatinine Ratio 14 (6-26) Glucose 42 L (70-105) mg/dL POC Glucose (70-99) mg/dL Calculated Osmolality 276 L (280-300) Lactic Acid (0.5-2.2) mmol/L Calcium 9.2 (8.6-10.3) mg/dL Phosphorus 2.9 (2.7-4.5) mg/dL Magnesium 2.1 (1.6-2.6) mg/dL Total Bilirubin 0.3 (0.3-1.0) mg/dL Direct Bilirubin 0.2 (0.0-0.2) mg/dL Indirect Bilirubin 0.1 (0.0-1.2) mg/dL AST 14 (13-39) Units/L ALT 13 (7-52) Units/L Alkaline Phosphatase 194 H (34-104) Units/L B-Natriuretic Peptide 374 H (Less than 100) pg/mL Serum Total Protein 7.3 (6.4-8.9) g/dL Albumin 3.3 L (3.5-5.7) g/dL Globulin 4.0 H (2.4-3.5) g/dL Albumin/Globulin Ratio 0.8 L (1.1-2.2) 01/15/18 01/15/18 Range/Units 01:03 02:59 WBC (4.3-11.1) K/mcL RBC (3.82-4.97) M/mcL Hgb (11.5-15.4) g/dL Hct (35.3-44.9) % MCV (83.0-100.0) fL MCH (28.0-33.3) pg MCHC (31.6-35.5) g/dL RDW (11.5-14.5) % Plt Count (140-400) K/mcL MPV (9.4-12.4) fL Immature Gran % (0-4) % Seg Neutrophils % % Lymphocytes % % Monocytes % % Eosinophils % % Basophils % % Neutrophils # (1.6-8.9) K/mcL Lymphocytes # (0.6-4.6) K/mcL Monocytes # (0.0-1.3) K/mcL Eosinophils # (0.0-0.6) K/mcL Basophils # (0.0-0.2) K/mcL Sodium (136-145) mEq/L Potassium (3.5-5.1) mEq/L Chloride (98-107) mEq/L Carbon Dioxide (23-29) mEq/L BUN (8-23) mg/dL Creatinine (0.60-1.20) mg/dL Est GFR ( Amer) (> 60) Est GFR (Non-Af Amer) (> 60) BUN/Creatinine Ratio (6-26) Glucose (70-105) mg/dL POC Glucose 148 H (70-99) mg/dL Calculated Osmolality (280-300) Lactic Acid 0.6 (0.5-2.2) mmol/L Calcium (8.6-10.3) mg/dL Phosphorus (2.7-4.5) mg/dL Magnesium (1.6-2.6) mg/dL Total Bilirubin (0.3-1.0) mg/dL Direct Bilirubin (0.0-0.2) mg/dL Indirect Bilirubin (0.0-1.2) mg/dL AST (13-39) Units/L ALT (7-52) Units/L Alkaline Phosphatase (34-104) Units/L B-Natriuretic Peptide (Less than 100) pg/mL Serum Total Protein (6.4-8.9) g/dL Albumin (3.5-5.7) g/dL Globulin (2.4-3.5) g/dL Albumin/Globulin Ratio (1.1-2.2) - Radiology Data Radiology results reviewed: Yes I reviewed the patient's radiology results. Chest X-Ray 01/15/18 00:49 IMPRESSION: Diffuse airway inflammation may be seen with asthma, bronchitis or smoking. No consolidative pneumonia. D/ / Hebert Cherry / Hebert Cherry Interpreting Provider: Hebert Cherry - EKG Data EKG #1 EKG attestation: Yes I reviewed and interpreted this EKG. EKG shows normal: sinus rhythm Rate: normal Rhythm: NSR, arrhythmia Austin/QRS: normal When compared to previous EKG there are: no significant changes Interpretation: no acute changes S.B.A.RGiuseppe - S.B.A.RGiuseppe Situation: Demographics Background: Presenting Complaint Assessment: Vital Signs, Course and respsone to treatment, Patient/Family Expectation Recommendation: Barrier(s) to disposition, Recommendation based on pending studies, treatments, or consults S.B.A.RGiuseppe Report Given to: Dr. Pearl EastmanB.AShania Repor Time: 02:44
[2018-01-15 01:16] LABS: Basophils # 0.1 K/mcL (0.0-0.2); Basophils % 0.7 %; Eosinophils # 0.2 K/mcL (0.0-0.6); Eosinophils % 1.4 %; Hematocrit 33.5 % (35.3-44.9); Hemoglobin 10.6 g/dL (11.5-15.4); Immature Granulocytes % 2.8 % (0-4); Lymphocytes # 2.6 K/mcL (0.6-4.6); Lymphocytes % 22.7 %; Mean Corpuscular HGB Conc 31.6 g/dL (31.6-35.5); Mean Corpuscular Hemoglobin 27.9 pg (28.0-33.3); Mean Corpuscular Volume 88.2 fL (83.0-100.0); Mean Platelet Volume 9.6 fL (9.4-12.4); Monocytes # 1.1 K/mcL (0.0-1.3); Monocytes % 9.2 %; Neutrophils # 7.4 K/mcL (1.6-8.9); Platelet Count 232 K/mcL (140-400); Red Cell Distribution Width 14.3 % (11.5-14.5); Segmented Neutrophils % 63.2 %
[2018-01-15 02:29] LABS: Albumin 3.3 g/dL (3.5-5.7); Albumin/Globulin Ratio 0.8 (1.1-2.2); Bilirubin,Direct 0.2 mg/dL (0.0-0.2); Bilirubin,Indirect 0.1 mg/dL (0.0-1.2); Bilirubin,Total 0.3 mg/dL (0.3-1.0); Calcium 9.2 mg/dL (8.6-10.3); Magnesium 2.1 mg/dL (1.6-2.6); Phosphorous 2.9 mg/dL (2.7-4.5); Potassium 3.3 mEq/L (3.5-5.1); Total Protein 7.3 g/dL (6.4-8.9)
[2018-01-15] MEDS ORDERED: *HR* Dextrose 50 % in Water (Syg) 50 ML SYRINGE IVP ONE (02:38)
[2018-01-15] MEDS ORDERED: *HR* Dextrose 50 % in Water (Syg) 50 ML SYRINGE ONE (02:39)
[2018-01-15] MEDS ORDERED: Acetaminophen 325 MG TABLET PO PRN (03:27)
[2018-01-15] MEDS ORDERED: Metoclopramide 10 MG/10 ML UD.LIQ PO PRN (03:33)
[2018-01-15] MEDS ORDERED: *HR* OxyCODONE/APAP 10/325 TABLET PO PRN (03:33)
--- NOTE | 2018-01-15 03:42 | Event Note ---
Date of Encounter: 01/15/18 Time of Encounter: 03:32 Patient was seen and examined. Agree with the H&P as written by the Resident Physician. Patient recently discharged after a stay for HCAP/RSV pneumonia/ESBL and VRE UTI. Was discharged to finish abx IV with Ertapenem and oral Amoxicillin. She comes back with worsening respiratory symptoms. Apparently wheezing on presentation significantly and was giving IV steroids and nebs with wheezing improving. She is on 3L chronically and remains on that. Glucose was in the 40s and was given IV dextrose. The patient is known diabetic with labile blood glucose. Labs consistent with abnormal kidney funciton but patient is a MWF HD patient. Mild leukocytosis. Mildly elevated BNP. On exam She is lethargic and barely wakes up but follows commands when she does. Thinks it is Wednesday. Pupills equal and reactive. She talks for a few seconds then falls asleep. Patient is on scheduled morphine and take Percocet PRN too. Plan to admit and treat COPD exacerbation This is the patient's 8th admission this year alone and she has refused SNF in the past. Needs placement and need to have a discussion with patient/family/ palliative if needed to prevent re-admissions CT head STAT May need to back off pain meds as tolerated. IV steroids and nebs. O2 support c/w abx from previous d/c Monitor glucose as patient is known to go up and down with any changes to insulin regimen c/s nephrology to resume HD as scheduled.
[2018-01-15] MEDS ORDERED: D5% in Water 1,000 ML IVC PRN (03:43)
[2018-01-15] MEDS ORDERED: Dextrose Gel 15 GM/37.5 ML TUBE PO PRN ×2 (03:43)
--- NOTE | 2018-01-15 03:59 | Internal Med History&Physical ---
Date of Encounter: 01/15/18 Time of Encounter: 02:50 Assessment and Plan (1) Acute exacerbation of chronic obstructive airways disease Current visit: Yes Status: Acute Presenting with dyspnea. Wheezes on lung exam. Acute exacerbation of COPD likely secondary to bronchitis. Oxygen saturation normal on oxygen dose. Mild leukocytosis, mild BNP elevation. CXR shows diffuse airway inflammation consistent with asthma/bronchitis/or smoking, with no focal consolidation. Patient has not yet completed a course of amoxicillin from prior discharge, will continue amoxicillin. Provide IV steroids, Duonebs, and O2 supplementation. Patient's 8th admission since the beginning of this year. There is healing concern during last admission that the patient may be malingering, as she developed a new complaints after she was told she was going to be discharged. She has qualified for ECF placement on previous admissions, but refuses each time. She likely will need extensive discussion about discharge planning and expectations going forward to try to prevent readmissions. (2) Somnolence Current visit: Yes Status: Resolved Patient is very somnolent upon my assessment. She is arousable and can answer a few questions, but will fall asleep again soon after. ED staff reports that earlier she was alert and much more interactive, despite her blood glucose being 42. Etiology not entirely clear at this time as the patient's O2 saturation is normal and no obvious explanation in her lab work. She is on a significant amount of pain medication, this could be contributing. Neuro exam nonfocal. Head CT shows no acute intracranial abnormality. Continue to monitor. (3) Anemia in chronic kidney disease, on chronic dialysis Current visit: Yes Status: Acute Hemoglobin 10.5, this is better than previous evaluations. No signs of bleeding. Continue to monitor. (4) 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 Current visit: Yes Status: Acute Recent admission with ESBL and VRE UTI. Patient has a PICC line in place. Per ID from previous admission she is to complete a course of ertapenem until . Continue antibiotics (5) Hypokalemia Current visit: Yes Status: Acute Potassium 3.3. Magnesium normal. Replace and continue to monitor. (6) ESRD (end stage renal disease) on dialysis Current visit: Yes Status: Chronic Patient's respiratory status does not appear to be secondary to fluid overload. Lower extremity edema appears to be chronic in nature. Consult nephrology for daily COAL HIKER need. (7) Diabetes mellitus Current visit: Yes Status: Acute Patient known to have very labile blood glucose. Will place on sliding scale insulin and monitor. 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 ) use of insulin (8) Decubitus ulcer, heel, right, unstageable Current visit: Yes Status: Acute Routine wound care (9) Decubitus skin ulcer Current visit: Yes Status: Chronic Routine wound care Qualifiers: Pressure ulcer location: sacral region Pressure ulcer stage: unspecified pressure ulcer stage Qualified Code(s): L89.159 - Pressure ulcer of sacral region, unspecified stage (10) DVT prophylaxis Current visit: Yes Status: Acute Subcutaneous heparin (11) DNR (do not resuscitate) Current visit: Yes Status: Acute Patient's CODE STATUS is DNR CCA DNI Internal Medicine - H&P: HPI Chief complaint: Dyspnea Admitted From: Emergency Dept History of present illness: Ms. Riley is a 62 year old female with PMH of COPD on 3L home O2, ESRD on HD, CAD/CABG, CVA, DVT, DM, HTN, and GI bleed, presented to the emergency department with chief complaint of dyspnea. She was just recently discharged from the hospital on 01/13/18 with RSV pneumonia and ESBL/VRE UTI and still on antibiotics. Upon my assessment the patient is very somnolent, but will awake and answer a few questions and then fall back to sleep. A&O 2. She mostly is answering yes and no questions. Reports her breathing did not improve since last hospitalization. Associated symptoms include a productive cough, mild abdominal pain, and constipation. She denies fevers, chills, headache, chest pain, nausea, vomiting, diarrhea, stool, dysuria, hematuria, or worsening leg pain/swelling. Blood glucose was 42 in the emergency department and the nurse reports that at this time the patient was much more alert, interactive, and answering questions. She received IV dextrose and upon my assessment BG was 140. She also received steroids and nebulizers in the emergency department. Past Med Surg Social Fam HX - Past Medical History Medical history: COPD, coronary artery disease, CVA, DVT, diabetes, dialysis, GERD, GI bleed, hyperlipidemia, hypertension, peripheral artery disease, other Psychiatric history: anxiety, depression, schizophrenia, previous psychiatric hospitalization, other - Past Surgical History Surgical History: angioplasty/stent, appendectomy, cholecystectomy, coronary bypass (CABG), hysterectomy, knee replacement, other, IVC filter - Social History Smoking Status: Current every day smoker Smokeless Tobacco Status: No Alcohol use: none Drug use: none - Family History Father Family Member Ethnicity: Non- Living Status: Hx Family Cardiac Disorders: Yes (CAD, [place]) Hx Family Cancer: Yes (Polycythemia) Hx Family Endocrine Disorder: Yes (DM) Mother Family Member Ethnicity: Non- Living Status: Still Living Hx Family Cardiac Disorders: Yes Hx Family Respiratory Disorders: Yes (End stage COPD) Brother Family Member Ethnicity: Non- Living Status: Still Living Hx Family Cardiac Disorders: Yes Hx Family GI Disorders: Yes (dm) Sister Adopted: No Family Member Ethnicity: Non- Living Status: Still Living Hx Family Cardiac Disorders: Yes Hx Family Respiratory Disorders: No Hx Family Cancer: No Hx Family GI Disorders: No Hx Family Endocrine Disorder: No Hx Family Neuromuscular Disorders: No Hx Family Neurologic Disorders: No Hx Family HEENT Disorders: No Hx Family Autoimmune Disorders: No Internal Medicine - H&P: Meds Omeprazole [PriLOSEC] 20 mg PO DAILY 05/11/15 [History] Colestipol HCl [Colestid] 1 gm PO BID 06/12/15 [History] Carvedilol 12.5 mg PO BID 10/28/15 [History] Calcium Acetate [Phos-LO] 1,334 mg PO TIDWM 09/06/16 [History] Folic Acid/Vit Bcomp,C [Renal Vitamin Tablet] 0.8 mg PO DAILY 04/15/17 [History] ARIPiprazole [Abilify] 10 mg PO DAILY 09/13/17 [History] Aspirin Enteric Coated [Aspirin EC] 81 mg PO DAILY 09/13/17 [History] Budesonide/Formoterol 160/4.5 [Symbicort 160/4.5] 2 puff IH BIDR 09/13/17 [ History] Cholecalciferol (Vitamin D3) [Vitamin D3] 50,000 unit PO TH 09/13/17 [History] OxyCODONE/APAP 10/325 [Percocet 10/325 MG] 1 tab PO Q6H PRN 09/13/17 [History] Sennosides [Senna] 8.8 mg PO BID 09/13/17 [History] Sevelamer [Renvela] 800 mg PO TID 09/13/17 [History] Albuterol Neb [AccuNeb] 0.63 mg IH Q6H PRN 10/18/17 [History] Gabapentin [Neurontin] 100 mg PO TID #60 capsule 10/21/17 [Rx] Collagenase Oint [Santyl] 1 appl TP DAILY 11/11/17 [History] Oxybutynin [Ditropan] 5 mg PO TID 11/11/17 [History] Isosorbide MONOnitrate (24 HR) [Imdur] 30 mg PO DAILY #30 tab.er.24h 11/19/17 [ Rx] Insulin LISPRO [Humalog Kwikpen U-100] 0 unit SQ ACHS 11/25/17 [History] Acetaminophen [Tylenol] 650 mg PO Q6HR PRN tablet 12/14/17 [Rx] Amitriptyline HCl 100 mg PO HS 12/22/17 [History] Morphine Sulfate SR (12 HR) [MS Contin] 30 mg PO Q12HR 12/22/17 [History] Rosuvastatin [Crestor] 10 mg PO HS 12/22/17 [History] amLODIPine [Norvasc] 5 mg PO DAILY 12/30/17 [History] Insulin Glargine,Hum.rec.anlog [Basaglar Kwikpen U-100] 60 unit SQ BID 01/06/18 [History] metOLazone [Zaroxolyn] 2.5 mg PO DAILY 01/06/18 [History] Ertapenem [INVanz] 500 mg IVPB DAILY #10 vial 01/11/18 [Rx] Amoxicillin 500 mg PO QPM #7 tablet 01/13/18 [Rx] Metoclopramide [Reglan] 5 mg PO TIDAC #15 ud.liq 01/13/18 [Rx] 3 Allergy/AdvReac Type Severity Reaction Status Date / Time No Known Allergies Allergy Verified 01/06/18 09:30 All Systems PM: A 10-system review of systems was performed and is negative for pertinent findings except as documented above in the HPI. - Constitutional Vitals: Temp Pulse Resp BP Pulse Ox 98.1 F 97 14 160/74 96 01/15/18 00:43 01/15/18 02:28 01/15/18 03:30 01/15/18 03:30 01/15/18 02:28 General appearance: Present: A&O X 2 Exam: Somnolent, but arousable for short periods of time and then falls back to sleep - Head Head exam: Present: atraumatic, normocephalic - Eye Eye exam: Present: EOMI, PERRL, conjuntiva pink, sclera anicteric - Neck Neck exam general surgery: Present: supple, trachea midline. Absent: lymphadenopathy - Respiratory Respiratory exam: Present: decreased breath sounds, wheezes. Absent: accessory muscle use, rales, rhonchi - Cardiovascular Cardiovascular exam: Present: RRR, +S1, +S2. Absent: diastolic murmur, systolic murmur - GI/Abdominal GI/Abdominal exam: Present: normal bowel sounds, soft, no peritoneal signs. Absent: distended, firm, guarding, rebound, tenderness - Extremities Exam Extremities exam: Present: warm, radial pulses palpable and symmetrical. Absent : calf tenderness, cyanotic, pedal edema, tenderness - Neurological Exam Neurological exam: Present: CN II-XII intact, no focal deficits. Absent: facial droop, speech deficit - Skin Skin exam: Present: dry, intact Internal Med - H&P Results - Labs CBC & Chem 7: 01/15/18 01:03 01/15/18 01:03
--- NOTE | 2018-01-15 04:20 | Emergency Department Note ---
Disposition Clinical Impression: Bronchitis, Hypoglycemia, ESRD (end stage renal disease) COPD (chronic obstructive pulmonary disease) Qualifiers: COPD type: unspecified COPD Qualified Code(s): J44.9 - Chronic obstructive pulmonary disease, unspecified Disposition: Admitted As Inpatient Referrals: Tristen Quintana MD [Primary Care Provider] - General Adult HPI - General Chief complaint: ED Shortness of Breath/Dyspnea Stated complaint: breathing problem Time Seen by Provider: 01/15/18 00:46 Source: patient, EMS Mode of arrival: EMS Limitations: no limitations - History of Present Illness Pain Scale: 8 - Related Data Home Medications Medication Instructions Recorded Confirmed Omeprazole [PriLOSEC] 20 mg PO DAILY 05/11/15 01/15/18 Colestipol HCl [Colestid] 1 gm PO BID 06/12/15 01/15/18 Carvedilol 12.5 mg PO BID 10/28/15 01/15/18 Calcium Acetate [Phos-LO] 1,334 mg PO TIDWM 09/06/16 01/15/18 Folic Acid/Vit Bcomp,C [Renal 0.8 mg PO DAILY 04/15/17 01/15/18 Vitamin Tablet] ARIPiprazole [Abilify] 10 mg PO DAILY 09/13/17 01/15/18 Aspirin Enteric Coated [Aspirin EC] 81 mg PO DAILY 09/13/17 01/15/18 Budesonide/Formoterol 160/4.5 2 puff IH BIDR 09/13/17 01/15/18 [Symbicort 160/4.5] Cholecalciferol (Vitamin D3) 50,000 unit PO TH 09/13/17 01/15/18 [Vitamin D3] OxyCODONE/APAP 10/325 [Percocet 1 tab PO Q6H PRN 09/13/17 01/15/18 10/325 MG] Sennosides [Senna] 8.8 mg PO BID 09/13/17 01/15/18 Sevelamer [Renvela] 800 mg PO TID 09/13/17 01/15/18 Albuterol Neb [AccuNeb] 0.63 mg IH Q6H PRN 10/18/17 01/15/18 Collagenase Oint [Santyl] 1 appl TP DAILY 11/11/17 01/15/18 Oxybutynin [Ditropan] 5 mg PO TID 11/11/17 01/15/18 Insulin LISPRO [Humalog Kwikpen 0 unit SQ ACHS 11/25/17 01/15/18 U-100] Amitriptyline HCl 100 mg PO HS 12/22/17 01/15/18 Morphine Sulfate SR (12 HR) [MS 30 mg PO Q12HR 12/22/17 01/15/18 Contin] Rosuvastatin [Crestor] 10 mg PO HS 12/22/17 01/15/18 amLODIPine [Norvasc] 5 mg PO DAILY 12/30/17 01/15/18 Insulin Glargine,Hum.rec.anlog 60 unit SQ BID 01/06/18 01/15/18 [Basaglar Kwikpen U-100] metOLazone [Zaroxolyn] 2.5 mg PO DAILY 01/06/18 01/15/18 Previous Rx's Medication Instructions Recorded Gabapentin [Neurontin] 100 mg PO TID #60 capsule 10/21/17 Isosorbide MONOnitrate (24 HR) 30 mg PO DAILY #30 tab.er.24h 11/19/17 [Imdur] Acetaminophen [Tylenol] 650 mg PO Q6HR PRN tablet 12/14/17 Ertapenem [INVanz] 500 mg IVPB DAILY #10 vial 01/11/18 Amoxicillin 500 mg PO QPM #7 tablet 01/13/18 Metoclopramide [Reglan] 5 mg PO TIDAC #15 ud.liq 01/13/18 Allergies Allergy/AdvReac Type Severity Reaction Status Date / Time No Known Allergies Allergy Verified 01/06/18 09:30 Constitutional: Denies: fever Cardiovascular: Reports: chest pain Respiratory: Reports: cough, dyspnea. 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 - Social History Smoking Status: Current every day smoker Smokeless Tobacco Status: No Alcohol use: Reports: none Drug use: Reports: none Physical Exam - General Limitations: no limitations General appearance: alert, in no apparent distress, other (Chronically ill) Course Vital Signs Temperature 98.1 F 01/15/18 00:43 Pulse Rate 92 01/15/18 00:43 Respiratory Rate 16 01/15/18 00:43 Blood Pressure 181/76 01/15/18 00:43 O2 Sat by Pulse Oximetry 96 01/15/18 00:43 Temperature 97.8 F 01/15/18 03:47 Pulse Rate 94 01/15/18 03:47 Respiratory Rate 18 01/15/18 03:47 Blood Pressure 153/77 01/15/18 03:47 O2 Sat by Pulse Oximetry 99 01/15/18 03:47 Oxygen Delivery Oxygen Delivery Nasal Cannula Medical Decision Making - Lab Data Result diagrams: 01/15/18 01:03 01/15/18 01:03 Lab Results 01/15/18 01/15/18 01/15/18 Range/Units 01:03 01:03 01:03 WBC 11.6 H (4.3-11.1) K/mcL RBC 3.80 L (3.82-4.97) M/mcL Hgb 10.6 L D (11.5-15.4) g/dL Hct 33.5 L (35.3-44.9) % MCV 88.2 (83.0-100.0) fL MCH 27.9 L (28.0-33.3) pg MCHC 31.6 (31.6-35.5) g/dL RDW 14.3 (11.5-14.5) % Plt Count 232 (140-400) K/mcL MPV 9.6 (9.4-12.4) fL Immature Gran % 2.8 (0-4) % Seg Neutrophils % 63.2 % Lymphocytes % 22.7 % Monocytes % 9.2 % Eosinophils % 1.4 % Basophils % 0.7 % Neutrophils # 7.4 (1.6-8.9) K/mcL Lymphocytes # 2.6 (0.6-4.6) K/mcL Monocytes # 1.1 (0.0-1.3) K/mcL Eosinophils # 0.2 (0.0-0.6) K/mcL Basophils # 0.1 (0.0-0.2) K/mcL Sodium 132 L (136-145) mEq/L Potassium 3.3 L (3.5-5.1) mEq/L Chloride 97 L (98-107) mEq/L Carbon Dioxide 27 (23-29) mEq/L BUN 26 H (8-23) mg/dL Creatinine 1.90 H (0.60-1.20) mg/dL Est GFR ( Amer) 32 L (> 60) Est GFR (Non-Af Amer) 27 L (> 60) BUN/Creatinine Ratio 14 (6-26) Glucose 42 L (70-105) mg/dL POC Glucose (70-99) mg/dL Calculated Osmolality 276 L (280-300) Lactic Acid (0.5-2.2) mmol/L Calcium 9.2 (8.6-10.3) mg/dL Phosphorus 2.9 (2.7-4.5) mg/dL Magnesium 2.1 (1.6-2.6) mg/dL Total Bilirubin 0.3 (0.3-1.0) mg/dL Direct Bilirubin 0.2 (0.0-0.2) mg/dL Indirect Bilirubin 0.1 (0.0-1.2) mg/dL AST 14 (13-39) Units/L ALT 13 (7-52) Units/L Alkaline Phosphatase 194 H (34-104) Units/L B-Natriuretic Peptide 374 H (Less than 100) pg/mL Serum Total Protein 7.3 (6.4-8.9) g/dL Albumin 3.3 L (3.5-5.7) g/dL Globulin 4.0 H (2.4-3.5) g/dL Albumin/Globulin Ratio 0.8 L (1.1-2.2) 01/15/18 01/15/18 Range/Units 01:03 02:59 WBC (4.3-11.1) K/mcL RBC (3.82-4.97) M/mcL Hgb (11.5-15.4) g/dL Hct (35.3-44.9) % MCV (83.0-100.0) fL MCH (28.0-33.3) pg MCHC (31.6-35.5) g/dL RDW (11.5-14.5) % Plt Count (140-400) K/mcL MPV (9.4-12.4) fL Immature Gran % (0-4) % Seg Neutrophils % % Lymphocytes % % Monocytes % % Eosinophils % % Basophils % % Neutrophils # (1.6-8.9) K/mcL Lymphocytes # (0.6-4.6) K/mcL Monocytes # (0.0-1.3) K/mcL Eosinophils # (0.0-0.6) K/mcL Basophils # (0.0-0.2) K/mcL Sodium (136-145) mEq/L Potassium (3.5-5.1) mEq/L Chloride (98-107) mEq/L Carbon Dioxide (23-29) mEq/L BUN (8-23) mg/dL Creatinine (0.60-1.20) mg/dL Est GFR ( Amer) (> 60) Est GFR (Non-Af Amer) (> 60) BUN/Creatinine Ratio (6-26) Glucose (70-105) mg/dL POC Glucose 148 H (70-99) mg/dL Calculated Osmolality (280-300) Lactic Acid 0.6 (0.5-2.2) mmol/L Calcium (8.6-10.3) mg/dL Phosphorus (2.7-4.5) mg/dL Magnesium (1.6-2.6) mg/dL Total Bilirubin (0.3-1.0) mg/dL Direct Bilirubin (0.0-0.2) mg/dL Indirect Bilirubin (0.0-1.2) mg/dL AST (13-39) Units/L ALT (7-52) Units/L Alkaline Phosphatase (34-104) Units/L B-Natriuretic Peptide (Less than 100) pg/mL Serum Total Protein (6.4-8.9) g/dL Albumin (3.5-5.7) g/dL Globulin (2.4-3.5) g/dL Albumin/Globulin Ratio (1.1-2.2) Critical Care Time Critical Care Time: No Attestation Statement - Attestation Attestation: I examined this patient and my medical decision-making was reviewed with the Resident Physician. I agree with the documented findings, disposition and treatment plan as described except to the extent set forth below. Patient presents to the ED with shortness of breath. History of CHF and COPD. Recent admission for bronchitis. On examination she is tachypneic. Expiratory wheezing. Plan. Patient treated a COPD exacerbation. No infiltrate on chest x -ray. Nebs and steroids. Admitted for further treatment and evaluation.
[2018-01-15] MEDS: MethylPREDNISolone 40 MG/ML VIAL IVP SCH ×3 (04:58→17:28)
[2018-01-15] MEDS: Ipratropium/Albuterol Neb 3 ML IH SCH ×4 (05:01→22:45)
[2018-01-15] MEDS: *HR* Heparin 5,000 UNIT/ML VIAL SQ SCH ×2 (05:57→17:36)
[2018-01-15 06:56] LABS: Basophils # 0.1 K/mcL (0.0-0.2); Basophils % 0.6 %; Eosinophils % 0.3 %; Hematocrit 31.8 % (35.3-44.9); Immature Granulocytes % 2.6 % (0-4); Lymphocytes # 0.9 K/mcL (0.6-4.6); Lymphocytes % 8.9 %; Mean Corpuscular HGB Conc 31.4 g/dL (31.6-35.5); Mean Corpuscular Hemoglobin 27.7 pg (28.0-33.3); Mean Corpuscular Volume 88.1 fL (83.0-100.0); Mean Platelet Volume 9.8 fL (9.4-12.4); Monocytes # 0.2 K/mcL (0.0-1.3); Neutrophils # 8.6 K/mcL (1.6-8.9); Platelet Count 198 K/mcL (140-400); Red Blood Count 3.61 M/mcL (3.82-4.97); Red Cell Distribution Width 14.4 % (11.5-14.5); Segmented Neutrophils % 85.6 %
[2018-01-15 07:02] LABS: Calcium 9.2 mg/dL (8.6-10.3)
[2018-01-15] MEDS: Insulin LISPRO 300 UNITS/3 ML VIAL SQ SCH ×4 (08:16→22:29)
[2018-01-15] MEDS: Isosorbide MONOnitrate (24 HR) 30 MG TAB.ER.24H PO SCH (08:17)
[2018-01-15] MEDS: amLODIPine 5 MG TABLET PO SCH (08:18)
[2018-01-15] MEDS: ARIPiprazole 10 MG TABLET PO SCH (08:18)
[2018-01-15] MEDS: Aspirin Enteric Coated 81 MG Tablet PO SCH (08:18)
[2018-01-15] MEDS: Renal Vitamin 1 MG CAPSULE PO SCH (08:18)
[2018-01-15] MEDS: Calcium Acetate 667 MG CAPSULE PO SCH ×3 (08:18→17:29)
[2018-01-15] MEDS: metOLazone 2.5 MG TABLET PO SCH (08:18)
[2018-01-15] MEDS: Gabapentin 100 MG CAPSULE PO SCH ×3 (08:18→22:33)
[2018-01-15] MEDS: Sennosides 8.6 MG TABLET PO SCH ×2 (08:20→22:30)
[2018-01-15] MEDS: Budesonide/Formoterol 160/4.5 MDI IH SCH ×2 (10:12→22:45)
--- NOTE | 2018-01-15 10:27 | Nephrology Consult Note ---
Date of Encounter: 01/15/18 Time of Encounter: 10:25 Assessment and Plan (1) ESRD (end stage renal disease) Current Visit: Yes Status: Acute Patient with ESRD and last dialysis was Wednesday. Will perform UF today secondary to dyspnea and edema suggesting volume overload state. Renal diet Adjust medications for renal function. History of Present Illness - Reason for Consult Consult date: 01/15/18 end stage renal disease - Chief Complaint ESRD - History of Present Illness Patient with ESRD well known to the nephrology service who presents for the evaluation of dyspnea. She reports having dyspnea and swelling prior to dialysis yesterday that improved slightly after dialysis, but did not resolve. This morning she still feels short of breath and has occasional chest pain. Past Med Surg Social Fam HX - Past Medical History Medical history: COPD, coronary artery disease, CVA, DVT, diabetes, dialysis, GERD, GI bleed, hyperlipidemia, hypertension, peripheral artery disease, other Psychiatric history: anxiety, depression, schizophrenia, previous psychiatric hospitalization, other - Past Surgical History Surgical History: angioplasty/stent, appendectomy, cholecystectomy, coronary bypass (CABG), hysterectomy, knee replacement, other, IVC filter - Social History Smoking Status: Current every day smoker Packs per day: 1 Smokeless Tobacco Status: No Alcohol use: none Drug use: none - Family History Father Family Member Ethnicity: Non- Living Status: Hx Family Cardiac Disorders: Yes (CAD, ND) Hx Family Cancer: Yes (Polycythemia) Hx Family Endocrine Disorder: Yes (DM) Mother Family Member Ethnicity: Non- Living Status: Still Living Hx Family Cardiac Disorders: Yes Hx Family Respiratory Disorders: Yes (End stage COPD) Hx Family Medical Disorders: Yes (blood clot) Brother Family Member Ethnicity: Non- Living Status: Still Living Hx Family Cardiac Disorders: Yes Hx Family GI Disorders: Yes (dm) Sister Adopted: No Family Member Ethnicity: Non- Living Status: Still Living Hx Family Cardiac Disorders: Yes Hx Family Respiratory Disorders: No Hx Family Cancer: No Hx Family GI Disorders: No Hx Family Endocrine Disorder: No Hx Family Neuromuscular Disorders: No Hx Family Neurologic Disorders: No Hx Family HEENT Disorders: No Hx Family Autoimmune Disorders: No Medications and Allergies Omeprazole [PriLOSEC] 20 mg PO DAILY 05/11/15 [History] Colestipol HCl [Colestid] 1 gm PO BID 06/12/15 [History] Carvedilol 12.5 mg PO BID 10/28/15 [History] Calcium Acetate [Phos-LO] 1,334 mg PO TIDWM 09/06/16 [History] Folic Acid/Vit Bcomp,C [Renal Vitamin Tablet] 0.8 mg PO DAILY 04/15/17 [History] ARIPiprazole [Abilify] 10 mg PO DAILY 09/13/17 [History] Aspirin Enteric Coated [Aspirin EC] 81 mg PO DAILY 09/13/17 [History] Budesonide/Formoterol 160/4.5 [Symbicort 160/4.5] 2 puff IH BIDR 09/13/17 [ History] Cholecalciferol (Vitamin D3) [Vitamin D3] 50,000 unit PO TH 09/13/17 [History] OxyCODONE/APAP 10/325 [Percocet 10/325 MG] 1 tab PO Q6H PRN 09/13/17 [History] Sennosides [Senna] 8.6 mg PO BID PRN 09/13/17 [History] Sevelamer [Renvela] 800 mg PO TID 09/13/17 [History] Albuterol Neb [AccuNeb] 0.63 mg IH Q6H PRN 10/18/17 [History] Gabapentin [Neurontin] 100 mg PO TID #60 capsule 10/21/17 [Rx] Collagenase Oint [Santyl] 1 appl TP DAILY 11/11/17 [History] Oxybutynin [Ditropan] 5 mg PO TID 11/11/17 [History] Isosorbide MONOnitrate (24 HR) [Imdur] 30 mg PO DAILY #30 tab.er.24h 11/19/17 [ Rx] Insulin LISPRO [Humalog Kwikpen U-100] 0 unit SQ ACHS 11/25/17 [History] Acetaminophen [Tylenol] 650 mg PO Q6HR PRN tablet 12/14/17 [Rx] Amitriptyline HCl 100 mg PO HS 12/22/17 [History] Morphine Sulfate SR (12 HR) [MS Contin] 30 mg PO Q12HR 12/22/17 [History] Rosuvastatin [Crestor] 10 mg PO HS 12/22/17 [History] amLODIPine [Norvasc] 5 mg PO DAILY 12/30/17 [History] Insulin Glargine,Hum.rec.anlog [Basaglar Kwikpen U-100] 60 unit SQ BID 01/06/18 [History] metOLazone [Zaroxolyn] 2.5 mg PO DAILY 01/06/18 [History] Ertapenem [INVanz] 500 mg IVPB DAILY #10 vial 01/11/18 [Rx] Amoxicillin 500 mg PO QPM #7 tablet 01/13/18 [Rx] Metoclopramide [Reglan] 5 mg PO TIDAC #15 ud.liq 01/13/18 [Rx] 3 Allergy/AdvReac Type Severity Reaction Status Date / Time No Known Allergies Allergy Verified 01/06/18 09:30 Review of Systems All Systems: reviewed and no additional remarkable complaints except as stated ( as documented in the hpi) Exam - Vital Signs Vital signs: Initial Vital Signs Temp Pulse Resp BP Pulse Ox 98.1 F 92 16 181/76 96 01/15/18 00:43 01/15/18 00:43 01/15/18 00:43 01/15/18 00:43 01/15/18 00:43 Vital Signs - Last 8 Hours Temp Pulse Resp BP Pulse Ox 01/15/18 10:16 16 99 01/15/18 07:40 98.4 F 99 14 177/71 01/15/18 05:01 18 99 01/15/18 03:47 97.8 F 94 18 153/77 99 01/15/18 03:30 14 160/74 Intake and Output 01/14/18 01/15/18 01/15/18 23:59 07:59 15:59 Intake Total 480 / 480 Balance 480 / 480 Intake: Oral 480 / 480 Other: Meal Breakfast Percent of Meal Consumed 100% Weight 101.5 kg Blood Glucose* 125 198 Patient Weight 01/15/18 23:59 Weight 101.5 kg - General Appearance General appearance: well-developed, well-nourished EENT: ATNC Neck: supple Respiratory: course breath sounds Cardiology: edema, regular rate Gastrointestinal: obese Integumentary: warm and dry Neurologic: alert and oriented x3 Musculoskeletal: no cyanosis Psychiatric: mood/affect appropriate Results - Lab Results 01/15/18 03:27 01/15/18 03:29 Most recent lab results Calcium 9.2 mg/dL (8.6-10.3) 01/15/18 03:29 Phosphorus 2.9 mg/dL (2.7-4.5) 01/15/18 01:03 Magnesium 2.1 mg/dL (1.6-2.6) 01/15/18 01:03 Consult Discharge Plan - Plan Referrals: Tristen Quintana MD [Primary Care Provider] -
[2018-01-15] MEDS: Colestipol Hcl [Colestid] 1 GM PO SCH ×2 (11:16→22:39)
--- NOTE | 2018-01-15 11:54 | Event Note ---
Date of Encounter: 01/15/18 Time of Encounter: 11:50 Pt is a 62y/o female with PMH Of COPD on LTOT, ESRD on HD who was admitted for acute respiratory distress secondary to COPD exacerbation. Pt seen and examined at bedside. Sitting in chair and saturating well on nasal cannula. will continue systemic steroids, bronchodilator support Pt continuously remains adamant about not wanting to go to ECF after discharge. will need criminal justice social worker assistance with discharge disposition and possible involvement of adult protective services given pt's consistent readmissions.
[2018-01-15] MEDS ORDERED: 0.9 % Sodium Chloride 250 ML IVC PRN (14:51)
[2018-01-15] MEDS ORDERED: 0.9 % Sodium Chloride 1,000 ML PRIME SCH (15:00)
[2018-01-15] MEDS: *HR* Morphine Sulfate SR (12 HR) 30 MG TABLET.ER PO SCH ×2 (17:26→17:28)
[2018-01-15] MEDS: Amoxicillin 500 MG CAPSULE PO SCH (17:28)
[2018-01-15] MEDS ORDERED: Insulin LISPRO 300 UNITS/3 ML VIAL SQ SCH (21:00)
[2018-01-16] MEDS: MethylPREDNISolone 40 MG/ML VIAL IVP SCH ×3 (01:00→17:55)
[2018-01-16] MEDS ORDERED: Insulin LISPRO 300 UNITS/3 ML VIAL SQ ONE ×2 (02:33→04:18)
[2018-01-16 04:36] LABS: Basophils % 0.2 %; Hematocrit 29.6 % (35.3-44.9); Hemoglobin 9.2 g/dL (11.5-15.4); Immature Granulocytes % 2.6 % (0-4); Lymphocytes # 0.8 K/mcL (0.6-4.6); Lymphocytes % 6.9 %; Mean Corpuscular HGB Conc 31.1 g/dL (31.6-35.5); Mean Corpuscular Hemoglobin 27.7 pg (28.0-33.3); Mean Corpuscular Volume 89.2 fL (83.0-100.0); Mean Platelet Volume 9.9 fL (9.4-12.4); Monocytes # 0.4 K/mcL (0.0-1.3); Monocytes % 3.5 %; Neutrophils # 9.9 K/mcL (1.6-8.9); Platelet Count 205 K/mcL (140-400); Red Blood Count 3.32 M/mcL (3.82-4.97); Red Cell Distribution Width 14.1 % (11.5-14.5); Segmented Neutrophils % 86.8 %
[2018-01-16 05:01] LABS: Calcium 9.5 mg/dL (8.6-10.3); Magnesium 2.2 mg/dL (1.6-2.6); Phosphorous 3.5 mg/dL (2.7-4.5); Potassium 5.5 mEq/L (3.5-5.1)
[2018-01-16] MEDS ORDERED: Insulin DETEMIR 100 UNIT/ML X5UNITS SQ SCH ×2 (05:09→09:00)
[2018-01-16] MEDS: Ipratropium/Albuterol Neb 3 ML IH SCH ×4 (05:27→22:10)
[2018-01-16] MEDS: *HR* Morphine Sulfate SR (12 HR) 30 MG TABLET.ER PO SCH ×2 (05:31→17:55)
[2018-01-16] MEDS: *HR* Heparin 5,000 UNIT/ML VIAL SQ SCH ×2 (05:32→17:56)
[2018-01-16] MEDS: Renal Vitamin 1 MG CAPSULE PO SCH (08:11)
[2018-01-16] MEDS: Isosorbide MONOnitrate (24 HR) 30 MG TAB.ER.24H PO SCH (08:12)
[2018-01-16] MEDS: metOLazone 2.5 MG TABLET PO SCH (08:12)
[2018-01-16] MEDS: Calcium Acetate 667 MG CAPSULE PO SCH ×3 (08:12→16:38)
[2018-01-16] MEDS: ARIPiprazole 10 MG TABLET PO SCH (08:12)
[2018-01-16] MEDS: amLODIPine 5 MG TABLET PO SCH (08:12)
[2018-01-16] MEDS: Sennosides 8.6 MG TABLET PO SCH ×2 (08:13→22:53)
[2018-01-16] MEDS: Aspirin Enteric Coated 81 MG Tablet PO SCH (08:13)
[2018-01-16] MEDS: Gabapentin 100 MG CAPSULE PO SCH ×3 (08:13→22:53)
[2018-01-16] MEDS: Insulin LISPRO 300 UNITS/3 ML VIAL SQ SCH ×6 (08:16→22:56)
[2018-01-16] MEDS: Colestipol Hcl [Colestid] 1 GM PO SCH ×2 (08:18→22:57)
[2018-01-16] MEDS: Insulin DETEMIR 100 UNIT/ML X5UNITS SQ SCH ×2 (09:52→22:56)
[2018-01-16] MEDS: Budesonide/Formoterol 160/4.5 MDI IH SCH ×2 (10:11→22:10)
--- NOTE | 2018-01-16 10:26 | Nephrology Progress Note ---
Date of Encounter: 01/16/18 Time of Encounter: 10:24 - Assessment and Plan (1) ESRD (end stage renal disease) Current Visit: Yes Status: Acute HD MWF. Adjust medications for renal function. Plan for HD on Wednesday. She still has dyspnea and nonspecific chest discomfort. Dyspnea improved after dialysis, but is still present. Subjective Principal diagnosis: ESRD Interval history: Patient feels slightly better than yesterday, but still has dyspnea. She also has a chest discomfort that has been present for a week and is unchanged. Objective - Vital Signs Vital signs: Vital Signs Temp Pulse Resp BP Pulse Ox 01/16/18 08:00 97.6 F 84 15 146/68 98 01/16/18 03:41 98.3 F 90 16 168/76 98 01/16/18 00:13 98.3 F 98 16 147/63 97 01/15/18 22:45 16 98 01/15/18 22:28 89 156/70 01/15/18 19:18 98.0 F 95 18 176/70 100 01/15/18 17:33 97.9 F 97 22 145/66 96 01/15/18 17:06 97.7 F 18 154/63 01/15/18 16:18 144/64 01/15/18 16:15 140/65 01/15/18 16:00 141/68 01/15/18 15:45 154/65 01/15/18 15:30 144/66 01/15/18 15:15 137/75 01/15/18 15:00 141/62 01/15/18 14:45 158/63 01/15/18 14:30 97.3 F L 20 164/70 01/15/18 11:41 98.5 F 102 16 132/68 100 Intake and Output 01/15/18 01/16/18 01/16/18 23:59 07:59 15:59 Intake Total 360 / 360 Output Total 3800 / 3800 Balance -3440 / -3440 Intake: Oral 360 / 360 Output: Urine 200 / 200 Total Dialysis (HD) Output 3600 / 3600 Other: Meal Dinner Percent of Meal Consumed 90% Weight 101.9 kg Blood Glucose* 527 424 299 Hemodialysis Net Fluid Removed 3000 (mL) Patient Weight 01/16/18 23:59 Weight 101.9 kg - General Appearance General appearance: Present: well-developed, well-nourished, obese EENT: Present: ATNC Neck: Present: supple Respiratory: Present: course breath sounds Cardiology: Present: edema, regular rate Gastrointestinal: Present: obese Integumentary: Present: warm and dry Neurologic: Present: alert and oriented x3 Psychiatric: Present: mood/affect appropriate - Lab 01/16/18 04:18 01/16/18 04:18 Most recent lab results Calcium 9.5 mg/dL (8.6-10.3) 01/16/18 04:18 Phosphorus 3.5 mg/dL (2.7-4.5) 01/16/18 04:18 Magnesium 2.2 mg/dL (1.6-2.6) 01/16/18 04:18 Consult Discharge Plan - Plan Referrals: Tristen Quintana MD [Primary Care Provider] -
--- NOTE | 2018-01-16 11:03 | Internal Med Progress Note ---
Date of Encounter: 01/16/18 Time of Encounter: 10:59 - Assessment and plan (1) Acute exacerbation of chronic obstructive airways disease Current Visit: Yes Status: Acute Assessment and plan: Clinically improving currently saturating on nasal cannula decreased solumedrol to 40mg IV q12h continue bronchodilator support incentive spirometry closely monitor pulse ox, goal O2 sat: 88-92% will closely monitor respiratory status (2) Diabetes mellitus Current Visit: Yes Status: Chronic Assessment and plan: Hyperglycemia likely secondary to steroid use increased levemir to 30units BID, added humalog 5units TIDAC high dose insulin algorithm monitor FS and BG ADA diet Qualifiers: Diabetes mellitus type: type 2 Diabetes mellitus supervisor intermediates insulin use: with supervisor intermediates use Diabetes mellitus complication status: with hyperglycemia Qualified Code(s): E11.65 - Type 2 diabetes mellitus with hyperglycemia; 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; Z79.4 - senior care (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 of insulin; 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; Z79.4 - senior care (current ) use of insulin (3) 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 Current Visit: Yes Status: Chronic Assessment and plan: currently on Ertapenem will continue (4) UTI (urinary tract infection) Current Visit: No Status: Chronic Qualifiers: Urinary tract infection type: acute cystitis Hematuria presence: with hematuria Qualified Code(s): N30.01 - Acute cystitis with hematuria (5) 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 transplanted heart: [place] heart Associated angina: with unstable angina Qualified Code(s): I25.110 - Atherosclerotic heart disease of [place] coronary artery with unstable angina pectoris (7) ESRD (end stage renal disease) on dialysis Current Visit: No Status: Chronic Assessment and plan: nephrology on board and evaluation appreciated continue HD as per nephrology (8) HTN (hypertension) Current Visit: No Status: Chronic Assessment and plan: BP within acceptable range continue home meds Hydralazine 10mg IV q6h SBP>160 will closely monitor BP Qualifiers: Hypertension type: essential hypertension Qualified Code(s): I10 - Essential (primary) hypertension (9) DVT prophylaxis Current Visit: Yes Status: Acute Assessment and plan: heparin SQ (10) Decubitus ulcer, heel, right, unstageable Current Visit: Yes Status: Chronic (11) Congestive heart failure Current Visit: Yes Status: Acute Assessment and plan: continue ADMISSIONS OFFICER for volume overload continue home meds Qualifiers: Heart failure type: unspecified Heart failure chronicity: chronic Qualified Code(s): I50.9 - Heart failure, unspecified - Time Spent With Patient Total time spent is greater than 50% in coordination of care (as documented) at patient's floor/unit and/or counseling patient: - Subjective Interval history: Patient seen and examined at bedside. Resting in bed and reports of difficulty breathing however noted be saturating 95-100% on baseline home oxygen. Noted to have hyperglycemia likely secondary to steroid use, increased insulin dosing and will closely monitor - Constitutional Vitals: Temp Pulse Resp BP Pulse Ox 97.7 F 88 15 173/68 94 01/16/18 10:18 01/16/18 10:18 01/16/18 10:18 01/16/18 10:18 01/16/18 10:18 General appearance: Present: A&O X 3, no acute distress, obese - Head Head exam: Present: atraumatic, normocephalic - Eye Eye exam: Present: conjuntiva pink, sclera anicteric - Respiratory Respiratory exam: Absent: respiratory distress, wheezes (diffuse rhonchi) - Cardiovascular Cardiovascular exam: Present: RRR, +S1, +S2. Absent: diastolic murmur, gallop, rubs, systolic murmur - GI/Abdominal GI/Abdominal exam: Present: normal bowel sounds, soft, no peritoneal signs. Absent: tenderness - Extremities Exam Extremities exam: Present: pedal edema, warm, radial pulses palpable and symmetrical. Absent: calf tenderness, tenderness - Neurological Exam Neurological exam: Present: oriented X3 Internal Medicine: Result - Labs CBC & Chem 7: 01/16/18 04:18 01/16/18 04:18 Labs: Short CBC 01/16/18 Range/Units 04:18 WBC 11.4 H (4.3-11.1) K/mcL Hgb 9.2 L (11.5-15.4) g/dL Hct 29.6 L (35.3-44.9) % Plt Count 205 (140-400) K/mcL Neutrophils # 9.9 H (1.6-8.9) K/mcL BMP 01/16/18 04:18 Sodium 122 L Potassium 5.5 H Chloride 91 L Carbon Dioxide 26 BUN 41 H Creatinine 2.56 H Glucose 501 H* Calcium 9.5 Consult Discharge Plan - Plan Referrals: Tristen Quintana MD [Primary Care Provider] -
[2018-01-16] MEDS: Amoxicillin 500 MG CAPSULE PO SCH (17:55)
[2018-01-17 04:21] LABS: Basophils # 0.1 K/mcL (0.0-0.2); Basophils % 0.3 %; Hematocrit 35.3 % (35.3-44.9); Hemoglobin 10.6 g/dL (11.5-15.4); Immature Granulocytes % 2.3 % (0-4); Lymphocytes # 1.1 K/mcL (0.6-4.6); Lymphocytes % 5.6 %; Mean Corpuscular Hemoglobin 27.1 pg (28.0-33.3); Mean Corpuscular Volume 90.3 fL (83.0-100.0); Mean Platelet Volume 9.9 fL (9.4-12.4); Monocytes # 0.8 K/mcL (0.0-1.3); Monocytes % 3.9 %; Platelet Count 274 K/mcL (140-400); Red Blood Count 3.91 M/mcL (3.82-4.97); Red Cell Distribution Width 14.6 % (11.5-14.5); Segmented Neutrophils % 87.9 %
[2018-01-17 04:31] LABS: Calcium 9.7 mg/dL (8.6-10.3); Magnesium 2.3 mg/dL (1.6-2.6); Phosphorous 5.1 mg/dL (2.7-4.5); Potassium 6.4 mEq/L (3.5-5.1)
[2018-01-17 04:33] LABS: Neutrophils # 17.2 K/mcL (1.6-8.9)
[2018-01-17] MEDS: Ipratropium/Albuterol Neb 3 ML IH SCH ×4 (04:37→22:36)
[2018-01-17] MEDS ORDERED: Insulin LISPRO 300 UNITS/3 ML VIAL SQ ONE ×2 (04:42→05:55)
[2018-01-17] MEDS: *HR* Heparin 5,000 UNIT/ML VIAL SQ SCH ×2 (05:51→18:11)
[2018-01-17] MEDS: MethylPREDNISolone 40 MG/ML VIAL IVP SCH (05:51)
[2018-01-17] MEDS: *HR* Morphine Sulfate SR (12 HR) 30 MG TABLET.ER PO SCH (06:47)
[2018-01-17] MEDS: Budesonide/Formoterol 160/4.5 MDI IH SCH ×2 (07:24→22:37)
[2018-01-17] MEDS ORDERED: 0.9 % Sodium Chloride 2,000 ML ONE (07:40)
[2018-01-17] MEDS ORDERED: *HR* OxyCODONE/APAP 10/325 TABLET PO PRN (07:54)
[2018-01-17] MEDS ORDERED: Insulin LISPRO 300 UNITS/3 ML VIAL SQ SCH (08:00)
[2018-01-17] MEDS: Gabapentin 100 MG CAPSULE PO SCH ×3 (08:04→21:30)
[2018-01-17] MEDS: Aspirin Enteric Coated 81 MG Tablet PO SCH (08:04)
[2018-01-17] MEDS: Calcium Acetate 667 MG CAPSULE PO SCH ×3 (08:04→16:47)
[2018-01-17] MEDS: Renal Vitamin 1 MG CAPSULE PO SCH (08:04)
[2018-01-17] MEDS: ARIPiprazole 10 MG TABLET PO SCH (08:04)
[2018-01-17] MEDS ORDERED: 0.9 % Sodium Chloride 250 ML IVC PRN (08:07)
[2018-01-17] MEDS: Insulin LISPRO 300 UNITS/3 ML VIAL SQ SCH ×6 (08:12→21:30)
[2018-01-17] MEDS: Insulin DETEMIR 100 UNIT/ML X5UNITS SQ SCH ×2 (08:15→21:31)
[2018-01-17] MEDS: Isosorbide MONOnitrate (24 HR) 30 MG TAB.ER.24H PO SCH (08:18)
[2018-01-17] MEDS: amLODIPine 5 MG TABLET PO SCH (08:18)
[2018-01-17] MEDS: metOLazone 2.5 MG TABLET PO SCH (08:19)
[2018-01-17] MEDS ORDERED: Insulin DETEMIR 100 UNIT/ML X5UNITS SQ ONE (08:20)
[2018-01-17] MEDS: Sennosides 8.6 MG TABLET PO SCH ×2 (08:23→21:30)
--- NOTE | 2018-01-17 11:11 | Nephrology Progress Note ---
Date of Encounter: 01/17/18 Time of Encounter: 11:08 - Assessment and Plan (1) ESRD (end stage renal disease) Current Visit: Yes Status: Acute HD MWF. Adjust medications for renal function. Renal diet. Patient seen on dialysis today. (2) Anemia in chronic kidney disease, on chronic dialysis Current Visit: Yes Status: Acute Hemoglobin stable. (3) COPD (chronic obstructive pulmonary disease) Current Visit: Yes Status: Chronic COPD exacerbation. Patient on steroids and bronchodialors Pulmonary exam slightly improved today. Qualifiers: COPD type: unspecified COPD Qualified Code(s): J44.9 - Chronic obstructive pulmonary disease, unspecified Subjective Principal diagnosis: ESRD Interval history: Patient is asleep. She was seen while on dialysis. No new reports overnight. She received opiates for pain this morning. Objective - Vital Signs Vital signs: Vital Signs Temp Pulse Resp BP Pulse Ox 01/17/18 10:30 137/81 01/17/18 10:15 145/77 01/17/18 10:00 139/78 01/17/18 09:45 106/64 01/17/18 09:30 135/68 01/17/18 09:15 164/76 01/17/18 09:00 170/74 01/17/18 08:45 98.0 F 15 177/73 01/17/18 07:34 98.0 F 93 15 168/75 100 01/17/18 07:25 18 100 01/17/18 03:15 97.4 F L 93 18 166/74 96 01/17/18 00:27 97.6 F 87 16 160/74 97 01/16/18 22:10 16 100 01/16/18 19:04 90 16 145/74 98 01/16/18 16:25 97.9 F 82 16 152/57 98 01/16/18 15:17 20 100 01/16/18 11:50 146/64 Intake and Output 01/16/18 01/17/18 01/17/18 23:59 07:59 15:59 Intake Total 600 / 600 Balance 600 / 600 Intake: Oral 0 / 0 Intake, Rinseback and Flushes 600 / 600 Other: # Voids 1 0 Weight 106.7 kg Blood Glucose* 306 390 Hemodialysis Net Fluid Removed 2310 (mL) Patient Weight 01/17/18 23:59 Weight 106.7 kg - General Appearance General appearance: Present: well-developed, well-nourished, obese EENT: Present: ATNC Respiratory: Present: course breath sounds (anteriorly. ) Cardiology: Present: regular rate Integumentary: Present: warm and dry Psychiatric: Present: mood/affect appropriate - Lab 01/17/18 04:00 01/17/18 04:00 Most recent lab results Calcium 9.7 mg/dL (8.6-10.3) 01/17/18 04:00 Phosphorus 5.1 mg/dL (2.7-4.5) H 01/17/18 04:00 Magnesium 2.3 mg/dL (1.6-2.6) 01/17/18 04:00 Consult Discharge Plan - Plan Referrals: Tristen Quintana MD [Primary Care Provider] -
--- NOTE | 2018-01-17 12:48 | Internal Med Progress Note ---
Date of Encounter: 01/17/18 Time of Encounter: 12:44 - Assessment and plan (1) Acute exacerbation of chronic obstructive airways disease Current Visit: Yes Status: Acute Assessment and plan: Clinically improving currently saturating on nasal cannula d/c Solumedrol, Start Prednisone 40mg PO qd continue bronchodilator support incentive spirometry closely monitor pulse ox, goal O2 sat: 88-92% will closely monitor respiratory status (2) Diabetes mellitus Current Visit: Yes Status: Chronic Assessment and plan: Hyperglycemia likely secondary to steroid use increased levemir to 60units BID, humalog to 12units TIDAC high dose insulin algorithm monitor FS and BG ADA diet Qualifiers: Diabetes mellitus type: type 2 Diabetes mellitus mcc insulin use: with tank farm operator use Diabetes mellitus complication status: with hyperglycemia Qualified Code(s): E11.65 - Type 2 diabetes mellitus with hyperglycemia; Z79.4 - assisted (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 of insulin; Z79.4 - assisted (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 of insulin; Z79.4 - comb winder (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 of insulin; Z79.4 - comb winder (current ) use of insulin (3) 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 Current Visit: Yes Status: Chronic Assessment and plan: currently on Ertapenem and Amoxicillin will continue last day of abx (01/21/18) (4) UTI (urinary tract infection) Current Visit: No Status: Chronic Qualifiers: Urinary tract infection type: acute cystitis Hematuria presence: with hematuria Qualified Code(s): N30.01 - Acute cystitis with hematuria (5) VRE (vancomycin-resistant Enterococci) Current Visit: No Status: Chronic (6) CAD (coronary artery disease) Current Visit: No Status: Chronic Assessment and plan: no signs of angina continue home meds Qualifiers: Coronary Disease-Associated Artery/Lesion type: [place] artery [place] vs. transplanted heart: [place] heart Associated angina: with unstable angina Qualified Code(s): I25.110 - Atherosclerotic heart disease of [place] coronary artery with unstable angina pectoris (7) ESRD (end stage renal disease) on dialysis Current Visit: No Status: Chronic Assessment and plan: nephrology on board and evaluation appreciated continue HD as per nephrology (HD on MWF) (8) HTN (hypertension) Current Visit: No Status: Chronic Assessment and plan: BP within acceptable range continue home meds Hydralazine 10mg IV q6h SBP>160 will closely monitor BP Qualifiers: Hypertension type: essential hypertension Qualified Code(s): I10 - Essential (primary) hypertension (9) DVT prophylaxis Current Visit: Yes Status: Acute Assessment and plan: heparin SQ (10) Decubitus ulcer, heel, right, unstageable Current Visit: Yes Status: Chronic (11) Congestive heart failure Current Visit: Yes Status: Chronic Assessment and plan: continue ONLINE MERCHANT for volume overload continue home meds Qualifiers: Heart failure type: unspecified Heart failure chronicity: chronic Qualified Code(s): I50.9 - Heart failure, unspecified - Time Spent With Patient Total time spent is greater than 50% in coordination of care (as documented) at patient's floor/unit and/or counseling patient: - Subjective Interval history: Pt seen and examined in hemodialysis. Pt reported of receiving her home dose of MS contin this morning due to which she has been very somnolent. Easily arousable and AAO x 3 but very somnolent. Will adjust this dose. Hyperglycemia noted, adjusted insulin dosing. Insulin dose was cautiously increased as pt has history of becoming hypoglycemic with high dose of insulin. Will continue to closely monitor social media intern on board for discharge disposition, as pt is known to have a decrease in hospitalizations when she is discharged to ECF compared to home. - Constitutional Vitals: Temp Pulse Resp BP Pulse Ox 98.0 F 93 15 119/70 100 01/17/18 08:45 01/17/18 07:34 01/17/18 08:45 01/17/18 12:00 01/17/18 07:34 General appearance: Present: A&O X 3 (somnolent), no acute distress, obese - Head Head exam: Present: atraumatic, normocephalic - Eye Eye exam: Present: conjuntiva pink, sclera anicteric - Respiratory Respiratory exam: Absent: respiratory distress, wheezes (equal air entry bilaterally ) - Cardiovascular Cardiovascular exam: Present: RRR, +S1, +S2. Absent: diastolic murmur, gallop, rubs, systolic murmur - GI/Abdominal GI/Abdominal exam: Present: normal bowel sounds, soft, no peritoneal signs. Absent: distended, tenderness - Extremities Exam Extremities exam: Present: warm, radial pulses palpable and symmetrical. Absent : calf tenderness, tenderness - Neurological Exam Neurological exam: Present: oriented X3 Internal Medicine: Result - Labs CBC & Chem 7: 01/17/18 04:00 01/17/18 04:00 Labs: Short CBC 01/17/18 Range/Units 04:00 WBC 19.6 H D (4.3-11.1) K/mcL Hgb 10.6 L (11.5-15.4) g/dL Hct 35.3 (35.3-44.9) % Plt Count 274 (140-400) K/mcL Neutrophils # 17.2 H (1.6-8.9) K/mcL BMP 01/17/18 04:00 Sodium 123 L Potassium 6.4 H Chloride 88 L Carbon Dioxide 35 H BUN 57 H Creatinine 2.98 H Glucose 503 H* Calcium 9.7 Consult Discharge Plan - Plan Referrals: Tristen Quintana MD [Primary Care Provider] -
[2018-01-17] MEDS: predniSONE 20 MG TABLET PO SCH (16:20)
[2018-01-17] MEDS: Amoxicillin 500 MG CAPSULE PO SCH (16:47)
[2018-01-17] MEDS: *HR* Morphine Sulfate SR (12 HR) 15 MG TABLET.ER PO SCH (16:47)
[2018-01-17] MEDS ORDERED: Insulin DETEMIR 100 UNIT/ML X5UNITS SQ SCH (20:00)
[2018-01-18] MEDS: Ipratropium/Albuterol Neb 3 ML IH SCH ×5 (03:58→23:24)
[2018-01-18 05:08] LABS: Basophils % 0.1 %; Hematocrit 34.8 % (35.3-44.9); Hemoglobin 10.5 g/dL (11.5-15.4); Immature Granulocytes % 1.8 % (0-4); Lymphocytes # 1.1 K/mcL (0.6-4.6); Lymphocytes % 5.3 %; Mean Corpuscular HGB Conc 30.2 g/dL (31.6-35.5); Mean Corpuscular Hemoglobin 27.9 pg (28.0-33.3); Mean Corpuscular Volume 92.3 fL (83.0-100.0); Mean Platelet Volume 9.4 fL (9.4-12.4); Monocytes # 1.4 K/mcL (0.0-1.3); Monocytes % 6.5 %; Neutrophils # 18.4 K/mcL (1.6-8.9); Platelet Count 243 K/mcL (140-400); Red Blood Count 3.77 M/mcL (3.82-4.97); Red Cell Distribution Width 14.9 % (11.5-14.5); Segmented Neutrophils % 86.3 %
[2018-01-18 05:32] LABS: Calcium 9.8 mg/dL (8.6-10.3); Magnesium 2.3 mg/dL (1.6-2.6); Phosphorous 4.8 mg/dL (2.7-4.5); Potassium 4.5 mEq/L (3.5-5.1)
[2018-01-18] MEDS: *HR* Heparin 5,000 UNIT/ML VIAL SQ SCH ×2 (07:00→18:21)
[2018-01-18] MEDS: *HR* Morphine Sulfate SR (12 HR) 15 MG TABLET.ER PO SCH ×2 (07:00→17:13)
[2018-01-18] MEDS: Budesonide/Formoterol 160/4.5 MDI IH SCH ×2 (07:20→23:19)
[2018-01-18] MEDS: Isosorbide MONOnitrate (24 HR) 30 MG TAB.ER.24H PO SCH (08:02)
[2018-01-18] MEDS: Renal Vitamin 1 MG CAPSULE PO SCH (08:02)
[2018-01-18] MEDS: amLODIPine 5 MG TABLET PO SCH (08:02)
[2018-01-18] MEDS: ARIPiprazole 10 MG TABLET PO SCH (08:02)
[2018-01-18] MEDS: predniSONE 20 MG TABLET PO SCH (08:02)
[2018-01-18] MEDS: Calcium Acetate 667 MG CAPSULE PO SCH ×3 (08:02→17:13)
[2018-01-18] MEDS: metOLazone 2.5 MG TABLET PO SCH (08:03)
[2018-01-18] MEDS: Aspirin Enteric Coated 81 MG Tablet PO SCH (08:03)
[2018-01-18] MEDS: Insulin DETEMIR 100 UNIT/ML X5UNITS SQ SCH ×2 (08:24→20:23)
[2018-01-18] MEDS: Insulin LISPRO 300 UNITS/3 ML VIAL SQ SCH ×7 (08:24→20:11)
[2018-01-18] MEDS: Gabapentin 100 MG CAPSULE PO SCH ×3 (08:30→20:01)
[2018-01-18] MEDS: Sennosides 8.6 MG TABLET PO SCH ×2 (08:30→20:02)
--- NOTE | 2018-01-18 09:04 | Nephrology Progress Note ---
Date of Encounter: 01/18/18 Time of Encounter: 09:02 - Assessment and Plan (1) ESRD (end stage renal disease) on dialysis Current Visit: No Status: Chronic Plan for HD tomorrow Continue renal diet Avoid nephrotoxins (2) COPD (chronic obstructive pulmonary disease) Current Visit: Yes Status: Chronic per primary team Qualifiers: COPD type: unspecified COPD Qualified Code(s): J44.9 - Chronic obstructive pulmonary disease, unspecified (3) Anemia of chronic disease Current Visit: No Status: Chronic Hgb 10.5 Goal 10-11 Subjective Principal diagnosis: ESRD Interval history: Patient seen and examined. Was sleeping sitting up in chair; says she doesn't feel well however she has eaten all her breakfast. Patient states she is not going home until she feels better. I again encouraged patient to go to a [facility] and patient adamantly refuses. Objective - Vital Signs Vital signs: Vital Signs Temp Pulse Resp BP Pulse Ox 01/18/18 08:16 97.6 F 90 20 01/18/18 07:22 16 98 01/18/18 03:59 16 98 01/18/18 03:51 97.7 F 88 17 138/49 99 01/18/18 00:03 97.6 F 94 12 151/72 93 01/17/18 22:37 18 95 01/17/18 20:58 97.6 F 94 18 141/64 96 01/17/18 15:52 98.8 F 97 160/63 92 01/17/18 15:50 18 92 01/17/18 12:30 98.0 F 15 167/66 01/17/18 12:15 121/70 01/17/18 12:00 119/70 01/17/18 11:45 138/66 01/17/18 11:30 114/76 01/17/18 11:15 128/74 01/17/18 11:00 133/70 01/17/18 10:45 132/78 01/17/18 10:30 137/81 01/17/18 10:15 145/77 01/17/18 10:00 139/78 01/17/18 09:45 106/64 01/17/18 09:30 135/68 01/17/18 09:15 164/76 Intake and Output 01/17/18 01/18/18 01/18/18 23:59 07:59 15:59 Intake Total 260 / 260 240 / 240 Balance 260 / 260 240 / 240 Intake: Oral 260 / 260 240 / 240 Other: Meal Dinner Percent of Meal Consumed 15% # Voids 1 Weight 101.4 kg Blood Glucose* 79 112 138 Patient Weight 01/18/18 23:59 Weight 101.4 kg - General Appearance General appearance: Present: obese, chronically ill EENT: Present: ATNC, mucous membranes moist, hearing intact, vision intact Neck: Present: supple Respiratory: Present: wheezing, rhonchi Cardiology: Present: edema (mild BLL edema), normal S1, normal S2 Dialysis Vascular Access: Arteriovenous Fistula Gastrointestinal: Present: no tenderness, no guarding, obese Integumentary: Present: warm and dry Neurologic: Present: alert and oriented x3 Psychiatric: Present: mood/affect appropriate, cooperative - Lab 01/18/18 04:00 01/18/18 04:00 Most recent lab results Calcium 9.8 mg/dL (8.6-10.3) 01/18/18 04:00 Phosphorus 4.8 mg/dL (2.7-4.5) H 01/18/18 04:00 Magnesium 2.3 mg/dL (1.6-2.6) 01/18/18 04:00 Consult Discharge Plan - Plan Referrals: Tristen Quintana MD [Primary Care Provider] - (waiting for the d/c plan)
--- NOTE | 2018-01-18 16:33 | Internal Med Progress Note ---
Date of Encounter: 01/18/18 Time of Encounter: 16:30 - Assessment and plan (1) Acute exacerbation of chronic obstructive airways disease Current Visit: Yes Status: Acute Assessment and plan: Clinically improving currently saturating on nasal cannula continue Prednisone 40mg PO qd continue bronchodilator support incentive spirometry closely monitor pulse ox, goal O2 sat: 88-92% will closely monitor respiratory status leukocytosis worsened from previous day, can be reactive to steroid use, given pt's clinical improvement, afebrile, will continue to closely monitor (2) Diabetes mellitus Current Visit: Yes Status: Chronic Assessment and plan: blood glucose better controlled continue levemir to 60units BID, humalog to 12units TIDAC high dose insulin algorithm monitor FS and BG ADA diet Qualifiers: Diabetes mellitus type: type 2 Diabetes mellitus jail insulin use: with petroleum terminal plant operator use Diabetes mellitus complication status: with hyperglycemia Qualified Code(s): E11.65 - Type 2 diabetes mellitus with hyperglycemia; Z79.4 - long term care administrator (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 of insulin; Z79.4 - [facility] (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 of insulin; Z79.4 - [facility] (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 of insulin; Z79.4 - [facility] (current ) use of insulin (3) 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 Current Visit: Yes Status: Chronic Assessment and plan: currently on Ertapenem and Amoxicillin will continue last day of abx (01/21/18) (4) UTI (urinary tract infection) Current Visit: No Status: Chronic Qualifiers: Urinary tract infection type: acute cystitis Hematuria presence: with hematuria Qualified Code(s): N30.01 - Acute cystitis with hematuria (5) VRE (vancomycin-resistant Enterococci) Current Visit: No Status: Chronic (6) CAD (coronary artery disease) Current Visit: No Status: Chronic Assessment and plan: no signs of angina continue home meds Qualifiers: Coronary Disease-Associated Artery/Lesion type: [place] artery [place] vs. transplanted heart: [place] heart Associated angina: with unstable angina Qualified Code(s): I25.110 - Atherosclerotic heart disease of [place] coronary artery with unstable angina pectoris (7) ESRD (end stage renal disease) on dialysis Current Visit: No Status: Chronic Assessment and plan: nephrology on board and evaluation appreciated continue HD as per nephrology (HD on MWF) (8) HTN (hypertension) Current Visit: No Status: Chronic Assessment and plan: BP within acceptable range continue home meds Hydralazine 10mg IV q6h SBP>160 will closely monitor BP Qualifiers: Hypertension type: essential hypertension Qualified Code(s): I10 - Essential (primary) hypertension (9) DVT prophylaxis Current Visit: Yes Status: Acute Assessment and plan: heparin SQ (10) Decubitus ulcer, heel, right, unstageable Current Visit: Yes Status: Chronic (11) Congestive heart failure Current Visit: Yes Status: Chronic Assessment and plan: continue DESKTOP PUBLISHING ASSOCIATE for volume overload continue home meds Qualifiers: Heart failure type: unspecified Heart failure chronicity: chronic Qualified Code(s): I50.9 - Heart failure, unspecified - Time Spent With Patient Total time spent is greater than 50% in coordination of care (as documented) at patient's floor/unit and/or counseling patient: - Subjective Interval history: Pt seen and examined at bedside. Sitting in chair and reports of feeling better compared to previous day. No overnight issues reported PT/OT evaluation requested older adult social work specialist on board for discharge disposition, as pt is known to have a decrease in hospitalizations when she is discharged to ECF compared to home. - Constitutional Vitals: Temp Pulse Resp BP Pulse Ox 97.6 F 90 24 138/49 98 01/18/18 08:16 01/18/18 08:16 01/18/18 15:51 01/18/18 03:51 01/18/18 15:51 General appearance: Present: A&O X 3, no acute distress, obese - Head Head exam: Present: atraumatic, normocephalic - Eye Eye exam: Present: conjuntiva pink, sclera anicteric - Respiratory Respiratory exam: Absent: respiratory distress, wheezes (decreased breath sounds but equal air entry bilaterally) - Cardiovascular Cardiovascular exam: Present: RRR, +S1, +S2. Absent: diastolic murmur, gallop, rubs, systolic murmur - GI/Abdominal GI/Abdominal exam: Present: normal bowel sounds, soft, no peritoneal signs. Absent: distended, tenderness - Extremities Exam Extremities exam: Present: pedal edema, warm, radial pulses palpable and symmetrical. Absent: calf tenderness - Neurological Exam Neurological exam: Present: oriented X3 Internal Medicine: Result - Labs CBC & Chem 7: 01/18/18 04:00 01/18/18 04:00 Labs: Short CBC 01/18/18 Range/Units 04:00 WBC 21.3 H (4.3-11.1) K/mcL Hgb 10.5 L (11.5-15.4) g/dL Hct 34.8 L (35.3-44.9) % Plt Count 243 (140-400) K/mcL Neutrophils # 18.4 H (1.6-8.9) K/mcL BMP 01/18/18 04:00 Sodium 132 L D Potassium 4.5 D Chloride 94 L Carbon Dioxide 33 H BUN 40 H Creatinine 2.35 H Glucose 133 H Calcium 9.8 Consult Discharge Plan - Plan Referrals: Tristen Quintana MD [Primary Care Provider] - (waiting for the d/c plan)
[2018-01-18] MEDS: Amoxicillin 500 MG CAPSULE PO SCH (17:13)
[2018-01-18] MEDS: Ertapenem 500 MG in 0.9 % Sodium Chloride Mini Bag 100 ML IVPB SCH (18:18)
--- NOTE | 2018-01-18 23:58 | Event Note ---
Date of Encounter: 01/18/18 Time of Encounter: 20:11 Alerted by pts. nurse that patient had a temperature of 94.7 rectally and had placed warm blankets and bear hugger on her. Order to monitor vital signs every 30 minutes and advised me of results. Stat lactic acid ordered. Patient on ertapenem until 01/21 per ID. Nurse reported that patient was somnolent. Went to assess patient who was sleeping and difficult to rouse w/sternal rub. Nurses on floor stated that pt. has periods of somnolence. SpO2 in low 90s. NC changed to O2 mask and SpO2 improved to 100% on #L. VS taken with temperature 98F, heart rate 96, respiration rate 12, BP 136/66. Concerning for sepsis criteria w/increase in WBC from 10.0 on 01/15 to 21.3 on 01/18. Will hold IV fluids d/t CHF. Pt. is currently on ertapenem per ID. Pt., VS, and f/u labs to be monitored closely.
--- NOTE | 2018-01-19 00:47 | Electrocardiograph Report ---
[place] [id number] Test Date: 2018-01-15 Pat Name: Lynnette Riley Department: 102 Room: 2A22 Gender: F Nailhead Setter: [place] : 1955 Requested By: Hola Ross Order Number: [id number] Reading MD: Aliza Walker Measurements Intervals [place] Rate: 94 P: 76 CO: 191 QRS: 74 QRSD: 94 T: 64 QT: 363 QTc: 415 Interpretive Statements SINUS RHYTHM WITH SINUS ARRHYTHMIA Electronically Signed On 01-19-2018 0:45:26 EDT by Aliza Walker
[2018-01-19] MEDS: Naloxone 0.4 MG/ML INJ IVP PRN ×4 (02:37→15:20)
[2018-01-19] MEDS: Ipratropium/Albuterol Neb 3 ML IH SCH ×6 (03:36→23:05)
[2018-01-19] MEDS: *HR* Dextrose 50 % in Water (Syg) 50 ML SYRINGE IVP PRN (04:27)
--- NOTE | 2018-01-19 04:38 | Event Note ---
Date of Encounter: 01/19/18 Time of Encounter: 02:00 Pt's mental status is not improving. Pt was recently started po morphine. Narcan 0.4mg iv was given and pt is more awake, alert after narcan. Will hold po morphine. RN report pt chocking on drinking juice. Will consult speech therapy in AM.
[2018-01-19] MEDS: *HR* Heparin 5,000 UNIT/ML VIAL SQ SCH ×2 (06:10→17:49)
[2018-01-19 07:01] LABS: Hematocrit 32.6 % (35.3-44.9); Hemoglobin 9.7 g/dL (11.5-15.4); Mean Corpuscular HGB Conc 29.8 g/dL (31.6-35.5); Mean Corpuscular Hemoglobin 27.3 pg (28.0-33.3); Mean Corpuscular Volume 91.8 fL (83.0-100.0); Mean Platelet Volume 9.7 fL (9.4-12.4); Platelet Count 218 K/mcL (140-400); Red Blood Count 3.55 M/mcL (3.82-4.97); Red Cell Distribution Width 14.9 % (11.5-14.5)
[2018-01-19] MEDS ORDERED: 0.9 % Sodium Chloride 1,000 ML ONE (07:37)
[2018-01-19 07:40] LABS: Magnesium 2.1 mg/dL (1.6-2.6); Phosphorous 4.5 mg/dL (2.7-4.5)
[2018-01-19 07:44] LABS: Calcium 8.8 mg/dL (8.6-10.3); Potassium 5.2 mEq/L (3.5-5.1)
[2018-01-19] MEDS: Calcium Acetate 667 MG CAPSULE PO SCH ×3 (07:50→17:48)
[2018-01-19] MEDS: Insulin LISPRO 300 UNITS/3 ML VIAL SQ SCH ×7 (07:50→19:50)
[2018-01-19] MEDS: Insulin DETEMIR 100 UNIT/ML X5UNITS SQ SCH ×2 (07:51→20:29)
[2018-01-19] MEDS: ARIPiprazole 10 MG TABLET PO SCH (07:51)
[2018-01-19] MEDS: Aspirin Enteric Coated 81 MG Tablet PO SCH (07:51)
[2018-01-19] MEDS: Isosorbide MONOnitrate (24 HR) 30 MG TAB.ER.24H PO SCH (07:51)
[2018-01-19] MEDS: Gabapentin 100 MG CAPSULE PO SCH ×3 (07:52→20:29)
[2018-01-19] MEDS: Sennosides 8.6 MG TABLET PO SCH ×2 (07:52→20:29)
[2018-01-19] MEDS: amLODIPine 5 MG TABLET PO SCH (07:52)
[2018-01-19] MEDS: predniSONE 20 MG TABLET PO SCH (07:52)
[2018-01-19] MEDS: Renal Vitamin 1 MG CAPSULE PO SCH (07:52)
[2018-01-19] MEDS: metOLazone 2.5 MG TABLET PO SCH (07:53)
[2018-01-19] MEDS ORDERED: 0.9 % Sodium Chloride 250 ML IVC PRN (10:13)
[2018-01-19] MEDS ORDERED: 0.9 % Sodium Chloride 1,000 ML PRIME SCH (10:15)
[2018-01-19] MEDS: Budesonide/Formoterol 160/4.5 MDI IH SCH ×2 (10:30→23:05)
[2018-01-19 10:41] LABS: Lymphocytes # 0.5 K/mcL (0.6-4.6); Neutrophils # 22.3 K/mcL (1.6-8.9)
[2018-01-19 10:42] LABS: Platelet Estimate Normal (Normal)
--- NOTE | 2018-01-19 12:34 | Nephrology Progress Note ---
Date of Encounter: 01/19/18 Time of Encounter: 12:33 - Assessment and Plan (1) ESRD (end stage renal disease) Current Visit: Yes Status: Acute HD MWF. Renal vitamins. Renal dose medications. Renal diet. Additional dialysis and ultrafiltration as needed. (2) Anemia in chronic kidney disease, on chronic dialysis Current Visit: Yes Status: Acute Hemoglobin stable. (3) COPD (chronic obstructive pulmonary disease) Current Visit: Yes Status: Chronic COPD exacerbation and HCAP Patient on steroids and bronchodialors Patient on antibiotics for HCAP. Qualifiers: COPD type: unspecified COPD Qualified Code(s): J44.9 - Chronic obstructive pulmonary disease, unspecified Subjective Principal diagnosis: ESRD Interval history: Patient seen. She was still lethargic. Objective - Vital Signs Vital signs: Vital Signs Temp Pulse Resp BP Pulse Ox 01/19/18 10:53 98.2 F 97 20 145/51 94 01/19/18 07:10 98.8 F 104 18 113/56 97 01/19/18 03:55 98.6 F 112 16 144/62 92 01/19/18 03:37 13 91 01/18/18 23:46 98 F 96 12 136/66 92 01/18/18 23:19 16 97 01/18/18 23:14 95.7 F L 01/18/18 22:19 95.4 F L 01/18/18 21:06 94.7 F L 01/18/18 19:13 86 18 152/74 98 01/18/18 17:06 97.3 F L 84 20 134/67 88 01/18/18 15:51 24 98 Intake and Output 01/18/18 01/19/18 01/19/18 23:59 07:59 15:59 Intake Total 120 / 120 Output Total 0 / 0 Balance 120 / 120 Intake: Oral 120 / 120 Output: Urine 0 / 0 Other: Percent of Meal Consumed 5% Weight 104.9 kg Blood Glucose* 82 96 123 Patient Weight 01/19/18 23:59 Weight 104.9 kg - General Appearance General appearance: Present: well-developed, well-nourished, obese EENT: Present: ATNC - Lab 01/19/18 06:35 01/19/18 06:35 Most recent lab results Calcium 8.8 mg/dL (8.6-10.3) 01/19/18 06:35 Phosphorus 4.5 mg/dL (2.7-4.5) 01/19/18 06:35 Magnesium 2.1 mg/dL (1.6-2.6) 01/19/18 06:35 Consult Discharge Plan - Plan Referrals: Tristen Quintana MD [Primary Care Provider] - (waiting for the d/c plan- possible ECF)
--- NOTE | 2018-01-19 15:26 | Internal Med Progress Note ---
Date of Encounter: 01/19/18 Time of Encounter: 14:30 - Assessment and plan (1) HCAP (healthcare-associated pneumonia) Current Visit: Yes Status: Acute Assessment and plan: Pt noted to have increase in O2 demand due to which CXR was done. CXR reported b /l pulmonary infiltrates secondary to multifocal PNA. Given worsening leukocytosis and increase in O2 demand, will d/c amoxicillin, start linezolid and continue ertapenem (linezolid sensitive to the Enteroccocus species from her urine culture that she is currently finishing treatment for, which is resistant to Vancomycin) f/u blood cultures all of patient's narcotics were discontinued due to somnolent mental status (2) Acute exacerbation of chronic obstructive airways disease Current Visit: Yes Status: Acute Assessment and plan: continue Prednisone 40mg PO qd currently saturating on nasal cannula continue bronchodilator support incentive spirometry closely monitor pulse ox, goal O2 sat: 88-92% will closely monitor respiratory status l (3) Diabetes mellitus Current Visit: Yes Status: Chronic Assessment and plan: blood glucose better controlled continue levemir to 60units BID, humalog to 12units TIDAC high dose insulin algorithm monitor FS and BG ADA diet Qualifiers: Diabetes mellitus type: type 2 Diabetes mellitus terminal gauger insulin use: with correction use Diabetes mellitus complication status: with hyperglycemia Qualified Code(s): E11.65 - Type 2 diabetes mellitus with hyperglycemia; Z79.4 - termite control service representative (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 of insulin; Z79.4 - correction (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 of insulin; Z79.4 - correction (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 of insulin; Z79.4 - correction (current ) use of insulin (4) 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 Current Visit: Yes Status: Chronic Assessment and plan: currently on Ertapenem, d/c amoxicillin and started Linezolid for HCAP which is sensitive to enterococcus reported on her urine culture will continue last day of abx (01/21/18) (5) UTI (urinary tract infection) Current Visit: No Status: Chronic Qualifiers: Urinary tract infection type: acute cystitis Hematuria presence: with hematuria Qualified Code(s): N30.01 - Acute cystitis with hematuria (6) VRE (vancomycin-resistant Enterococci) Current Visit: No Status: Chronic (7) CAD (coronary artery disease) Current Visit: No Status: Chronic Assessment and plan: no signs of angina continue home meds Qualifiers: Coronary Disease-Associated Artery/Lesion type: [place] artery [place] vs. transplanted heart: [place] heart Associated angina: with unstable angina Qualified Code(s): I25.110 - Atherosclerotic heart disease of [place] coronary artery with unstable angina pectoris (8) ESRD (end stage renal disease) on dialysis Current Visit: No Status: Chronic Assessment and plan: nephrology on board and evaluation appreciated continue HD as per nephrology (HD on MWF) (9) HTN (hypertension) Current Visit: No Status: Chronic Assessment and plan: BP within acceptable range continue home meds Hydralazine 10mg IV q6h SBP>160 will closely monitor BP Qualifiers: Hypertension type: essential hypertension Qualified Code(s): I10 - Essential (primary) hypertension (10) DVT prophylaxis Current Visit: Yes Status: Acute Assessment and plan: heparin SQ (11) Decubitus ulcer, heel, right, unstageable Current Visit: Yes Status: Chronic (12) Congestive heart failure Current Visit: Yes Status: Chronic Assessment and plan: continue MAL[place] ANALYST for volume overload continue home meds Qualifiers: Heart failure type: unspecified Heart failure chronicity: chronic Qualified Code(s): I50.9 - Heart failure, unspecified - Time Spent With Patient Total time spent is greater than 50% in coordination of care (as documented) at patient's floor/unit and/or counseling patient: - Subjective Interval history: Patient seen and examined in hemodialysis. Pt reported of be severely lethargic overnight secondary to narcotics and required narcan administration. Pt noted to have increase in O2 demand due to which CXR was done. CXR reported b /l pulmonary infiltrates secondary to multifocal PNA. Given worsening leukocytosis and increase in O2 demand, will d/c amoxicillin, start linezolid and continue ertapenem (linezolid sensitive to the Enteroccocus species from her urine culture that she is currently finishing treatment for, which is resistant to Vancomycin) PT evaluation recommended inpatient swing bed - Constitutional Vitals: Temp Pulse Resp BP Pulse Ox 98.3 F 97 22 121/56 94 01/19/18 12:15 01/19/18 10:53 01/19/18 12:15 01/19/18 12:45 01/19/18 10:53 General appearance: Present: A&O X 3 (somnolent ), no acute distress, obese - Head Head exam: Present: atraumatic, normocephalic - Eye Eye exam: Present: conjuntiva pink, sclera anicteric - Respiratory Respiratory exam: Present: decreased breath sounds. Absent: respiratory distress, wheezes - Cardiovascular Cardiovascular exam: Present: RRR, +S1, +S2. Absent: diastolic murmur, gallop, rubs, systolic murmur - GI/Abdominal GI/Abdominal exam: Present: normal bowel sounds, soft, no peritoneal signs. Absent: tenderness - Extremities Exam Extremities exam: Present: pedal edema, warm, radial pulses palpable and symmetrical. Absent: calf tenderness - Neurological Exam Neurological exam: Present: oriented X3 Internal Medicine: Result - Labs CBC & Chem 7: 01/19/18 06:35 01/19/18 06:35 Labs: Short CBC 01/19/18 Range/Units 06:35 WBC 24.8 H (4.3-11.1) K/mcL Hgb 9.7 L (11.5-15.4) g/dL Hct 32.6 L (35.3-44.9) % Plt Count 218 (140-400) K/mcL Neutrophils # 22.3 H (1.6-8.9) K/mcL BMP 01/19/18 06:35 Sodium 129 L Potassium 5.2 H Chloride 94 L Carbon Dioxide 27 BUN 57 H Creatinine 3.11 H Glucose 99 Calcium 8.8 - Impressions Impressions Chest X-Ray 01/19/18 09:42 IMPRESSION: Bilateral pulmonary infiltrates, likely related to multifocal pneumonia. No convincing evidence of superimposed failure or significant pleural fluid. D/ / Lenin Iglesias MD / Lenin Iglesias MD Interpreting Provider: Lenin Iglesias MD Consult Discharge Plan - Plan Referrals: Tristen Quintana MD [Primary Care Provider] - (waiting for the d/c plan- possible ECF)
[2018-01-19] MEDS: Ertapenem 500 MG in 0.9 % Sodium Chloride Mini Bag 100 ML IVPB SCH (17:48)
[2018-01-20] MEDS: Ipratropium/Albuterol Neb 3 ML IH SCH ×4 (04:15→19:55)
[2018-01-20] MEDS: *HR* Heparin 5,000 UNIT/ML VIAL SQ SCH ×2 (05:09→18:49)
[2018-01-20 05:30] LABS: Basophils % 0.1 %; Eosinophils # 0.2 K/mcL (0.0-0.6); Eosinophils % 0.9 %; Hemoglobin 8.5 g/dL (11.5-15.4); Immature Granulocytes % 0.5 % (0-4); Lymphocytes # 1.5 K/mcL (0.6-4.6); Mean Corpuscular HGB Conc 30.4 g/dL (31.6-35.5); Mean Corpuscular Hemoglobin 27.5 pg (28.0-33.3); Mean Corpuscular Volume 90.6 fL (83.0-100.0); Monocytes # 0.9 K/mcL (0.0-1.3); Neutrophils # 14.4 K/mcL (1.6-8.9); Platelet Count 173 K/mcL (140-400); Red Blood Count 3.09 M/mcL (3.82-4.97); Red Cell Distribution Width 14.9 % (11.5-14.5); Segmented Neutrophils % 84.5 %
[2018-01-20 05:43] LABS: Magnesium 1.9 mg/dL (1.6-2.6); Phosphorous 2.7 mg/dL (2.7-4.5)
[2018-01-20 06:10] LABS: Calcium 8.6 mg/dL (8.6-10.3); Potassium 3.5 mEq/L (3.5-5.1)
[2018-01-20] MEDS: Insulin DETEMIR 100 UNIT/ML X5UNITS SQ SCH ×2 (08:10→19:41)
[2018-01-20] MEDS: Insulin LISPRO 300 UNITS/3 ML VIAL SQ SCH ×7 (08:10→19:41)
[2018-01-20] MEDS: metOLazone 2.5 MG TABLET PO SCH (08:15)
[2018-01-20] MEDS: predniSONE 20 MG TABLET PO SCH (08:16)
[2018-01-20] MEDS: Gabapentin 100 MG CAPSULE PO SCH (08:16)
[2018-01-20] MEDS: ARIPiprazole 10 MG TABLET PO SCH (08:16)
[2018-01-20] MEDS: amLODIPine 5 MG TABLET PO SCH (08:16)
[2018-01-20] MEDS: Isosorbide MONOnitrate (24 HR) 30 MG TAB.ER.24H PO SCH (08:16)
[2018-01-20] MEDS: Sennosides 8.6 MG TABLET PO SCH ×2 (08:16→19:40)
[2018-01-20] MEDS: Aspirin Enteric Coated 81 MG Tablet PO SCH (08:16)
[2018-01-20] MEDS: Calcium Acetate 667 MG CAPSULE PO SCH ×3 (08:16→17:42)
[2018-01-20] MEDS: Renal Vitamin 1 MG CAPSULE PO SCH (08:16)
[2018-01-20] MEDS: Budesonide/Formoterol 160/4.5 MDI IH SCH ×2 (09:48→19:55)
--- NOTE | 2018-01-20 09:52 | Nephrology Progress Note ---
Date of Encounter: 01/20/18 Time of Encounter: 09:50 - Assessment and Plan (1) ESRD (end stage renal disease) on dialysis Current Visit: No Status: Chronic Plan for HD tomorrow Continue renal diet Avoid nephrotoxins (2) COPD (chronic obstructive pulmonary disease) Current Visit: Yes Status: Chronic per primary team Qualifiers: COPD type: unspecified COPD Qualified Code(s): J44.9 - Chronic obstructive pulmonary disease, unspecified (3) Anemia of chronic disease Current Visit: No Status: Chronic Hgb 8.5 down from 9.7. Goal 10-11 Transfuse per parameters. (4) HCAP (healthcare-associated pneumonia) Current Visit: Yes Status: Acute WBC down 17.1 from 24, recent antibiotic change. Per primary team. Subjective Principal diagnosis: ESRD Interval history: Patient seen and examined. Pt denies any pain or difficulty in breathing. Objective - Vital Signs Vital signs: Vital Signs Temp Pulse Resp BP Pulse Ox 01/20/18 07:40 99.1 F 91 17 157/65 94 01/20/18 04:15 16 86 01/20/18 03:53 98.1 F 83 17 140/56 94 01/19/18 23:12 98.8 F 85 18 124/52 97 01/19/18 23:05 16 92 01/19/18 20:39 94 01/19/18 19:33 97.6 F 89 18 122/54 94 01/19/18 16:17 98.4 F 93 18 139/62 92 01/19/18 15:54 98.3 F 18 132/67 01/19/18 15:45 129/71 01/19/18 15:30 125/63 01/19/18 15:15 137/67 01/19/18 15:00 133/71 01/19/18 14:45 140/89 01/19/18 14:30 127/65 01/19/18 14:15 120/63 01/19/18 14:00 151/51 01/19/18 13:45 123/59 01/19/18 13:30 126/61 01/19/18 13:15 134/58 01/19/18 13:00 133/59 01/19/18 12:45 121/56 01/19/18 12:30 128/74 01/19/18 12:15 98.3 F 22 144/56 01/19/18 10:53 98.2 F 97 20 145/51 94 Intake and Output 01/19/18 01/20/18 01/20/18 23:59 07:59 15:59 Intake Total 540 / 540 Output Total 0 / 0 Balance 540 / 540 Intake: IV Fluids 300 / 300 Zyvox Premix 600mg/300mL 600 mg 300 / 300 In 300 ml @ 150 mls/hr IVPB Q12HR NATALIE Rx#:[id number] Oral 240 / 240 Output: Urine 0 / 0 Other: Meal Dinner Percent of Meal Consumed 20% # Urine Diapers 1 0 # Bowel Movement Diapers 0 Weight 103.1 kg Blood Glucose* 167 157 Patient Weight 01/20/18 23:59 Weight 103.1 kg - General Appearance General appearance: Present: obese, chronically ill, frail EENT: Present: ATNC, mucous membranes moist, hearing intact, vision intact Neck: Present: supple Respiratory: Present: clear Cardiology: Present: no edema (poor circulation in lower legs. ), normal S1, normal S2 Dialysis Vascular Access: Arteriovenous Fistula Gastrointestinal: Present: normoactive bowel sounds, no tenderness Integumentary: Present: warm and dry Neurologic: Present: alert and oriented x3 Psychiatric: Present: mood/affect appropriate, cooperative (flat affect) - Lab 01/20/18 05:01 01/20/18 04:00 Most recent lab results Calcium 8.6 mg/dL (8.6-10.3) 01/20/18 04:00 Phosphorus 2.7 mg/dL (2.7-4.5) 01/20/18 04:00 Magnesium 1.9 mg/dL (1.6-2.6) 01/20/18 04:00 Consult Discharge Plan - Plan Referrals: Tristen Quintana MD [Primary Care Provider] - (waiting for the d/c plan- possible ECF)
[2018-01-20] MEDS: *HR* Dextrose 50 % in Water (Syg) 50 ML SYRINGE IVP PRN ×4 (12:25→12:30)
[2018-01-20] MEDS: Naloxone 0.4 MG/ML INJ IVP PRN (13:22)
--- NOTE | 2018-01-20 13:57 | Internal Med Progress Note ---
Date of Encounter: 01/20/18 Time of Encounter: 13:35 - Assessment and plan (1) HCAP (healthcare-associated pneumonia) Current Visit: Yes Status: Acute Assessment and plan: Leukocytosis improved from previous day will continue Linezolid (Day 2, start date: 01/19/18) pt to finish fourteen days of Ertapenem on 01/21/18, consider starting Zosyn for treatment of HCAP, with concern for aspiration maintain aspiration precautions monitor O2 sat, O2 supplementation as needed f/u blood cultures holding all sedating agents given pt's somnolence (2) Acute exacerbation of chronic obstructive airways disease Current Visit: Yes Status: Acute Assessment and plan: continue Prednisone 30mg PO qd (predenisone taper started, pt will need a long steroid taper) currently saturating on nasal cannula continue bronchodilator support incentive spirometry closely monitor pulse ox, goal O2 sat: 88-92% will closely monitor respiratory status l (3) Diabetes mellitus Current Visit: Yes Status: Chronic Assessment and plan: noted to b hypoglycemic decreased levemir to 30units BID ss insulin algorithm monitor FS and BG ADA diet Qualifiers: Diabetes mellitus type: type 2 Diabetes mellitus senior care insulin use: with intermediate card tender use Diabetes mellitus complication status: with hyperglycemia Qualified Code(s): E11.65 - Type 2 diabetes mellitus with hyperglycemia; Z79.4 - intermission coordinator (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 of insulin; Z79.4 - [facility] (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 of insulin; Z79.4 - intermission coordinator (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 of insulin; Z79.4 - [facility] (current ) use of insulin (4) 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 Current Visit: Yes Status: Chronic Assessment and plan: pt to finish fourteen days of Ertapenem on 01/21/18 (5) UTI (urinary tract infection) Current Visit: No Status: Chronic Qualifiers: Urinary tract infection type: acute cystitis Hematuria presence: with hematuria Qualified Code(s): N30.01 - Acute cystitis with hematuria (6) VRE (vancomycin-resistant Enterococci) Current Visit: No Status: Chronic (7) CAD (coronary artery disease) Current Visit: No Status: Chronic Assessment and plan: no signs of angina continue home meds Qualifiers: Coronary Disease-Associated Artery/Lesion type: [place] artery [place] vs. transplanted heart: [place] heart Associated angina: with unstable angina Qualified Code(s): I25.110 - Atherosclerotic heart disease of [place] coronary artery with unstable angina pectoris (8) ESRD (end stage renal disease) on dialysis Current Visit: No Status: Chronic Assessment and plan: nephrology on board and evaluation appreciated continue HD as per nephrology (HD on MWF) (9) HTN (hypertension) Current Visit: No Status: Chronic Assessment and plan: BP within acceptable range continue home meds Hydralazine 10mg IV q6h SBP>160 will closely monitor BP Qualifiers: Hypertension type: essential hypertension Qualified Code(s): I10 - Essential (primary) hypertension (10) DVT prophylaxis Current Visit: Yes Status: Acute Assessment and plan: heparin SQ (11) Decubitus ulcer, heel, right, unstageable Current Visit: Yes Status: Chronic (12) Congestive heart failure Current Visit: Yes Status: Chronic Assessment and plan: continue 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 He states his mother has history of noncompliance and has left ECF against medical advise in the past and he cannot convince her to go there if she doesn't want to. Pt reported of having hypoglycemia which was improved with Dextrose. Remained somnolent, which improved after receiving Narcan. Concern for aspiration as pt received apple juice while she was not completely awake. Leukocytosis improved from previous day. Will continue Linezolid and Ertapenem Pt will finish 14 days of Ertapenem on 01/21/18, will consider starting Zosyn in am for treatment of HCAP PT evaluation recommended inpatient swing bed - Constitutional Vitals: Temp Pulse Resp BP Pulse Ox 98.6 F 93 17 139/68 95 01/20/18 11:37 01/20/18 11:37 01/20/18 11:37 01/20/18 11:37 01/20/18 11:37 General appearance: Present: A&O X 3, no acute distress, obese - Head Head exam: Present: atraumatic, normocephalic - Eye Eye exam: Present: conjuntiva pink, sclera anicteric - Respiratory Respiratory exam: Absent: respiratory distress (diffuse rhonchi) - Cardiovascular Cardiovascular exam: Present: RRR, +S1, +S2. Absent: diastolic murmur, gallop, rubs, systolic murmur - GI/Abdominal GI/Abdominal exam: Present: normal bowel sounds, soft, no peritoneal signs. Absent: distended, tenderness - Extremities Exam Extremities exam: Present: pedal edema, warm, radial pulses palpable and symmetrical. Absent: calf tenderness - Neurological Exam Neurological exam: Present: oriented X3 Internal Medicine: Result - Labs CBC & Chem 7: 01/20/18 05:01 01/20/18 04:00 Labs: Short CBC 01/20/18 Range/Units 05:01 WBC 17.1 H (4.3-11.1) K/mcL Hgb 8.5 L (11.5-15.4) g/dL Hct 28.0 L (35.3-44.9) % Plt Count 173 (140-400) K/mcL Neutrophils # 14.4 H (1.6-8.9) K/mcL BMP 01/20/18 04:00 Sodium 131 L Potassium 3.5 D Chloride 92 L Carbon Dioxide 33 H BUN 32 H Creatinine 2.37 H Glucose 124 H Calcium 8.6 Consult Discharge Plan - Plan Referrals: Tristen Quintana MD [Primary Care Provider] - (waiting for the d/c plan- possible ECF)
[2018-01-20] MEDS: Ertapenem 500 MG in 0.9 % Sodium Chloride Mini Bag 100 ML IVPB SCH (17:43)
[2018-01-21] MEDS: Ipratropium/Albuterol Neb 3 ML IH SCH ×3 (03:42→16:19)
[2018-01-21] MEDS: *HR* Heparin 5,000 UNIT/ML VIAL SQ SCH ×2 (04:50→19:05)
[2018-01-21 05:20] LABS: Basophils % 0.1 %; Hematocrit 29.3 % (35.3-44.9); Hemoglobin 9.2 g/dL (11.5-15.4); Immature Granulocytes % 1.1 % (0-4); Lymphocytes # 0.8 K/mcL (0.6-4.6); Lymphocytes % 6.3 %; Mean Corpuscular HGB Conc 31.4 g/dL (31.6-35.5); Mean Corpuscular Hemoglobin 27.7 pg (28.0-33.3); Mean Corpuscular Volume 88.3 fL (83.0-100.0); Mean Platelet Volume 10.1 fL (9.4-12.4); Monocytes # 0.4 K/mcL (0.0-1.3); Monocytes % 2.8 %; Neutrophils # 12.1 K/mcL (1.6-8.9); Platelet Count 194 K/mcL (140-400); Red Blood Count 3.32 M/mcL (3.82-4.97); Red Cell Distribution Width 14.6 % (11.5-14.5); Segmented Neutrophils % 89.7 %
[2018-01-21 05:26] LABS: Magnesium 2.1 mg/dL (1.6-2.6); Phosphorous 4.7 mg/dL (2.7-4.5)
[2018-01-21 05:27] LABS: Calcium 9.1 mg/dL (8.6-10.3); Potassium 4.1 mEq/L (3.5-5.1)
[2018-01-21] MEDS ORDERED: 0.9 % Sodium Chloride 250 ML IVC PRN (07:22)
[2018-01-21] MEDS: Insulin LISPRO 300 UNITS/3 ML VIAL SQ SCH ×6 (07:30→19:04)
[2018-01-21] MEDS ORDERED: 0.9 % Sodium Chloride 1,000 ML PRIME SCH (07:30)
[2018-01-21] MEDS: Calcium Acetate 667 MG CAPSULE PO SCH ×3 (08:08→19:05)
[2018-01-21] MEDS: Aspirin Enteric Coated 81 MG Tablet PO SCH (08:08)
[2018-01-21] MEDS: Renal Vitamin 1 MG CAPSULE PO SCH (08:08)
[2018-01-21] MEDS: metOLazone 2.5 MG TABLET PO SCH (08:08)
[2018-01-21] MEDS: Sennosides 8.6 MG TABLET PO SCH (08:08)
[2018-01-21] MEDS: ARIPiprazole 10 MG TABLET PO SCH (08:26)
[2018-01-21] MEDS ORDERED: predniSONE 20 MG TABLET PO SCH (09:00)
--- NOTE | 2018-01-21 09:24 | Discharge Summary ---
- NOTES TO OUTPATIENT PROVIDER Notes to Outpatient Provider: Patient was treated for COPD exacerbation and healthcare associated pneumonia. Patient has had multiple admissions this year. She continues to refuse ECF. Finish treatment for UTI for a total of 14 days from her previous admission. Is being discharged on Zyvox she has failed other therapies for pneumonia as an outpatient before. Orders not resulted at time of discharge: Pending orders 01/20/18 04:23 Culture,Sputum with Gram Stain [RM] Routine 01/22/18 04:00 Chem 7 [Basic Metabolic Panel] AM 0400 Complete Blood Count w/o Diff [HEME] AM 0400 01/23/18 04:00 Chem 7 [Basic Metabolic Panel] AM 0400 Complete Blood Count w/o Diff [HEME] AM 04001/24/18 04:00 Chem 7 [Basic Metabolic Panel] AM 0400 Complete Blood Count w/o Diff [HEME] AM 0400 01/25/18 04:00 Chem 7 [Basic Metabolic Panel] AM 0400 Complete Blood Count w/o Diff [HEME] AM 04001/26/18 04:00 Chem 7 [Basic Metabolic Panel] AM 0400 Complete Blood Count w/o Diff [HEME] AM 0400 Date of Encounter: 01/21/18 Time of Encounter: 09:24 - Discharge Diagnosis (1) CAD (coronary artery disease) Priority: Secondary Status: Chronic Qualifiers: Coronary Disease-Associated Artery/Lesion type: [place] artery [place] vs. transplanted heart: [place] heart Associated angina: with unstable angina Qualified Code(s): I25.110 - Atherosclerotic heart disease of [place] coronary artery with unstable angina pectoris (2) HTN (hypertension) Priority: Secondary Status: Chronic Qualifiers: Hypertension type: essential hypertension Qualified Code(s): I10 - Essential (primary) hypertension (3) ESRD (end stage renal disease) on dialysis Priority: Secondary Status: Chronic (4) Acute exacerbation of chronic obstructive airways disease Priority: Primary Status: Acute (5) UTI (urinary tract infection) Priority: Secondary Status: Chronic Qualifiers: Urinary tract infection type: acute cystitis Hematuria presence: with hematuria Qualified Code(s): N30.01 - Acute cystitis with hematuria (6) Decubitus ulcer, heel, right, unstageable Priority: Secondary Status: Chronic (7) 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 Priority: Secondary Status: Chronic (8) Diabetes mellitus Priority: Secondary Status: Chronic Qualifiers: Diabetes mellitus type: type 2 Diabetes mellitus long[place] foreman insulin use: with [facility] use Diabetes mellitus complication status: with hyperglycemia Qualified Code(s): E11.65 - Type 2 diabetes mellitus with hyperglycemia; Z79.4 - middle or intermediate school principal (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 of insulin; Z79.4 - middle or intermediate school principal (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 of insulin; Z79.4 - senior living (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 of insulin; Z79.4 - middle or intermediate school principal (current ) use of insulin (9) Congestive heart failure Priority: Secondary Status: Chronic Qualifiers: Heart failure type: unspecified Heart failure chronicity: chronic Qualified Code(s): I50.9 - Heart failure, unspecified (10) HCAP (healthcare-associated pneumonia) Priority: Primary Status: Acute (11) Obesity (BMI 30-39.9) Priority: Secondary Status: Chronic Hospital course: Ms. Riley is a 62 year old female with PMH of COPD on 3L home O2, ESRD on HD, CAD/CABG, CVA, DVT, DM, HTN, and GI bleed, presented to the emergency department with chief complaint of dyspnea. She was just recently discharged from the hospital on 01/13/18 with RSV pneumonia and ESBL/VRE UTI and was still on antibiotics. Patient again was admitted for HCAP and was put on Zyvox this time with significantly improved respiratory status. She had issues with being somnolent at times and those were possibly due to pain meds. We stopped her morphine that she was on at home at discharge. While hospitalized, she finished IV ertapenem treatment for ESBL UTI from her previous admission. We discharged her to finish a course of Zyvox. Cultures remained negative. WBC went down to 13.4 from 19.6 on admission. She was seen by nephrology throughout and resumed on scheduled HD. We had an extensive discussion with the patient about placement as she has had recurrent admissions since the beginning of the year. This was her eighth admission since October 2017. She adamantly refused ECF. We had no choice but to discharge her home. She was discharged on 2017. - Time Spent with Patient Total time spent providing and/or coordinating discharge services: Greater than 30 minutes - Discharge Medications Prescriptions: Linezolid [Zyvox] 600 mg PO BID #12 tablet predniSONE [PredniSONE] See Taper PO TAPER #20 tablet Home Medications: Omeprazole [PriLOSEC] 20 mg PO DAILY 05/11/15 [History] Colestipol HCl [Colestid] 1 gm PO BID 06/12/15 [History] Carvedilol 12.5 mg PO BID 10/28/15 [History] Calcium Acetate [Phos-LO] 1,334 mg PO TIDWM 09/06/16 [History] Folic Acid/Vit Bcomp,C [Renal Vitamin Tablet] 0.8 mg PO DAILY 04/15/17 [History] ARIPiprazole [Abilify] 10 mg PO DAILY 09/13/17 [History] Aspirin Enteric Coated [Aspirin EC] 81 mg PO DAILY 09/13/17 [History] Budesonide/Formoterol 160/4.5 [Symbicort 160/4.5] 2 puff IH BIDR 09/13/17 [ History] Cholecalciferol (Vitamin D3) [Vitamin D3] 50,000 unit PO TH 09/13/17 [History] OxyCODONE/APAP 10/325 [Percocet 10/325 MG] 1 tab PO Q6H PRN 09/13/17 [History] Sennosides [Senna] 8.6 mg PO BID PRN 09/13/17 [History] Sevelamer [Renvela] 800 mg PO TID 09/13/17 [History] Albuterol Neb [AccuNeb] 0.63 mg IH Q6H PRN 10/18/17 [History] Gabapentin [Neurontin] 100 mg PO TID #60 capsule 10/21/17 [Rx] Collagenase Oint [Santyl] 1 appl TP DAILY 11/11/17 [History] Oxybutynin [Ditropan] 5 mg PO TID 11/11/17 [History] Isosorbide MONOnitrate (24 HR) [Imdur] 30 mg PO DAILY #30 tab.er.24h 11/19/17 [ Rx] Insulin LISPRO [Humalog Kwikpen U-100] 0 unit SQ ACHS 11/25/17 [History] Acetaminophen [Tylenol] 650 mg PO Q6HR PRN tablet 12/14/17 [Rx] Amitriptyline HCl 100 mg PO HS 12/22/17 [History] Morphine Sulfate SR (12 HR) [MS Contin] 30 mg PO Q12HR 12/22/17 [History] Rosuvastatin [Crestor] 10 mg PO HS 12/22/17 [History] amLODIPine [Norvasc] 5 mg PO DAILY 12/30/17 [History] Insulin Glargine,Hum.rec.anlog [Basaglar Kwikpen U-100] 60 unit SQ BID 01/06/18 [History] metOLazone [Zaroxolyn] 2.5 mg PO DAILY 01/06/18 [History] Amoxicillin 500 mg PO QPM #7 tablet 01/13/18 [Rx] Metoclopramide [Reglan] 5 mg PO TIDAC #15 ud.liq 01/13/18 [Rx] Linezolid [Zyvox] 600 mg PO BID #12 tablet 01/21/18 [Rx] predniSONE [PredniSONE] See Taper PO TAPER #20 tablet 01/21/18 [Rx] Allergies/Adverse Reactions: 3 Allergy/AdvReac Type Severity Reaction Status Date / Time No Known Allergies Allergy Verified 01/06/18 09:30 Date of admission: 01/15/18 03:05 Primary care physician: Tristen Quintana MD Consults: 01/15/18 03:27 Consult to Nurse Navigator [CONS] Routine Comment: 01/15/18 03:46 Consult to Nephrology [CONS] Routine Consulting Provider: Yong Baker/MARCO/SWAPNA/MILLIE Reason for Consult: ESRD on HD. Here with COPD exacerbation. Consult for daily RATING SPECIALIST needs Call Completed: No 01/15/18 15:00 Consult to Dialysis [CONS] ONCE 01/17/18 08:15 Consult to Dialysis [CONS] ONCE Consult to Licensed Optician [CONS] Routine Reason for SW Consult: discharge disposition 01/18/18 10:51 PT [Consult to Physical Therapy] [CONS] Routine Comment: Evaluate, develop and implement POC Reason for Consult: weakness Does patient have active BEDREST order?: No Is patient medically & hemodynamically stable?: Yes Patient assessed for mobility or mobilized this visit?: No 01/18/18 10:53 OT [Consult to Occupational Therapy] [CONS] Routine Comment: Evaluate, develop and implement POC Reason for Consult: weakness Does patient have active BEDREST order?: No Is patient medically & hemodynamically stable?: Yes Patient assessed for mobility or mobilized this visit?: No 01/19/18 10:15 Consult to Dialysis [CONS] ONCE 01/21/18 07:30 Consult to Dialysis [CONS] ONCE - Constitutional Vitals: Temp Pulse Resp BP Pulse Ox 99.2 F 88 16 144/83 94 01/21/18 07:32 01/21/18 07:32 01/21/18 07:32 01/21/18 07:32 01/21/18 07:32 General appearance: Present: A&O X 3, no acute distress, obese Exam: GEN: NAD CVS: RRR. S1, S2, No m/r/g RESP: CTAB ABD: Soft, NT, ND, +BS EXT: No edema. 2+ DP. No rashes NEURO: Nonfocal - Patient Status Disposition: Home, Self-Care Condition: Fair Overall status at discharge: patient is progressing back to baseline - Discharge Instructions Follow Up With: Tristen Quintana MD [Primary Care Provider] - (waiting for the d/c plan- possible ECF) Forms: ED Satisfaction Letter Additional Instructions: Hold Amitriptyline while on Zyvox - Diet and Activity Activity: increase activity as tolerated Diet: diabetic diet, low salt diet
[2018-01-21] MEDS: Budesonide/Formoterol 160/4.5 MDI IH SCH (10:16)
--- NOTE | 2018-01-21 12:22 | Nephrology Progress Note ---
Date of Encounter: 01/21/18 Time of Encounter: 12:00 - Assessment and Plan (1) ESRD (end stage renal disease) Status: Chronic Continue HD with UF as tolerated Lytes stable except chronic hyponatremia at 129 due to volume overload, typically improved after HD with UF Continue renal diet Will resume outpatient HD once discharged if no further readmission as pt has had recurrent hospital stays this year so far to a myriad of complaints including urinary symptoms. (2) Anemia in chronic kidney disease, on chronic dialysis Status: Chronic Hgb stable at 9.2, will resume EPO on discharge Subjective Principal diagnosis: ESRD Interval history: Interim events noted, Pt seen and examined on HD today. Objective - Vital Signs Vital signs: Vital Signs Temp Pulse Resp BP Pulse Ox 01/21/18 10:49 99.5 F 82 16 129/56 92 01/21/18 10:16 18 93 01/21/18 07:32 99.2 F 88 16 144/83 94 01/21/18 03:42 20 95 01/21/18 03:22 98.8 F 83 17 169/57 93 01/20/18 23:20 98.0 F 76 18 146/55 95 01/20/18 20:00 20 99 01/20/18 19:15 98.5 F 86 17 90 01/20/18 16:33 98.7 F 89 16 122/65 96 01/20/18 16:32 12 99 Intake and Output 01/20/18 01/21/18 01/21/18 23:59 07:59 15:59 Intake Total 300 / 300 240 / 240 Output Total 300 / 300 Balance 300 / 300 -60 / -60 Intake: IV Fluids 300 / 300 Zyvox Premix 600mg/300mL 600 mg 300 / 300 In 300 ml @ 150 mls/hr IVPB Q12HR NATALIE Rx#:[id number] Oral 240 / 240 Output: Urine 300 / 300 Other: Meal Breakfast Percent of Meal Consumed 25% # Urine Diapers 0 # Bowel Movement Diapers 0 Blood Glucose* 153 313 271 - General Appearance General appearance: Present: chronically ill EENT: Present: ATNC, mucous membranes moist Neck: Present: no JVD, supple Respiratory: Present: clear (ant bilat) Cardiology: Present: edema, normal S1, normal S2 Dialysis Vascular Access: Arteriovenous Fistula thrill: Yes bruit: Yes Gastrointestinal: Present: no tenderness, no guarding Integumentary: Present: warm and dry, chronic venous stasis Neurologic: Present: no focal deficit Musculoskeletal: Present: no deformities Psychiatric: Present: mood/affect appropriate - Lab 01/21/18 04:00 01/21/18 04:00 Most recent lab results Calcium 9.1 mg/dL (8.6-10.3) 01/21/18 04:00 Phosphorus 4.7 mg/dL (2.7-4.5) H 01/21/18 04:00 Magnesium 2.1 mg/dL (1.6-2.6) 01/21/18 04:00 Consult Discharge Plan - Plan Additional Instructions: Hold Amitriptyline while on Zyvox Referrals: Tristen Quintana MD [Primary Care Provider] - ()
[2018-01-21] MEDS: Insulin DETEMIR 100 UNIT/ML X5UNITS SQ SCH (12:24)
[2018-01-21] MEDS ORDERED: 0.9 % Sodium Chloride 1,000 ML ONE (13:17)
--- NOTE | 2018-01-21 17:07 | Physician Discharge Referral ---
Home Health/Hosp Referral Info Transfer to: Home Health - Diagnosis (1) CAD (coronary artery disease) Priority: Secondary Status: Chronic (2) HTN (hypertension) Priority: Secondary Status: Chronic (3) ESRD (end stage renal disease) on dialysis Priority: Secondary Status: Chronic (4) Acute exacerbation of chronic obstructive airways disease Priority: Primary Status: Acute (5) UTI (urinary tract infection) Priority: Secondary Status: Chronic (6) Decubitus ulcer, heel, right, unstageable Priority: Secondary Status: Chronic (7) 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 Priority: Secondary Status: Chronic (8) Diabetes mellitus Priority: Secondary Status: Chronic (9) Congestive heart failure Priority: Primary Status: Chronic (10) HCAP (healthcare-associated pneumonia) Priority: Primary Status: Acute (11) Obesity (BMI 30-39.9) Priority: Secondary Status: Chronic - Respiratory Orders Smoking Cessation: Smoking cessation has been advised. For more information, call the [employer] Quit Line at 2-135-VFWF-NOW. - Diet/Nutrition Diet/Nutrition Orders: Renal (diabetic diet/renal diet) - Services Needed Following services are medically necessary services: Home Health Aide - Transfer Medications Prescriptions: Linezolid [Zyvox] 600 mg PO BID #12 tablet predniSONE [PredniSONE] See Taper PO TAPER #20 tablet Home Medications: Omeprazole [PriLOSEC] 20 mg PO DAILY 05/11/15 [History] Colestipol HCl [Colestid] 1 gm PO BID 06/12/15 [History] Carvedilol 12.5 mg PO BID 10/28/15 [History] Calcium Acetate [Phos-LO] 1,334 mg PO TIDWM 09/06/16 [History] Folic Acid/Vit Bcomp,C [Renal Vitamin Tablet] 0.8 mg PO DAILY 04/15/17 [History] ARIPiprazole [Abilify] 10 mg PO DAILY 09/13/17 [History] Aspirin Enteric Coated [Aspirin EC] 81 mg PO DAILY 09/13/17 [History] Budesonide/Formoterol 160/4.5 [Symbicort 160/4.5] 2 puff IH BIDR 09/13/17 [ History] Cholecalciferol (Vitamin D3) [Vitamin D3] 50,000 unit PO TH 09/13/17 [History] OxyCODONE/APAP 10/325 [Percocet 10/325 MG] 1 tab PO Q6H PRN 09/13/17 [History] Sennosides [Senna] 8.6 mg PO BID PRN 09/13/17 [History] Sevelamer [Renvela] 800 mg PO TID 09/13/17 [History] Albuterol Neb [AccuNeb] 0.63 mg IH Q6H PRN 10/18/17 [History] Gabapentin [Neurontin] 100 mg PO TID #60 capsule 10/21/17 [Rx] Collagenase Oint [Santyl] 1 appl TP DAILY 11/11/17 [History] Oxybutynin [Ditropan] 5 mg PO TID 11/11/17 [History] Isosorbide MONOnitrate (24 HR) [Imdur] 30 mg PO DAILY #30 tab.er.24h 11/19/17 [ Rx] Insulin LISPRO [Humalog Kwikpen U-100] 0 unit SQ ACHS 11/25/17 [History] Acetaminophen [Tylenol] 650 mg PO Q6HR PRN tablet 12/14/17 [Rx] Amitriptyline HCl 100 mg PO HS 12/22/17 [History] Morphine Sulfate SR (12 HR) [MS Contin] 30 mg PO Q12HR 12/22/17 [History] Rosuvastatin [Crestor] 10 mg PO HS 12/22/17 [History] amLODIPine [Norvasc] 5 mg PO DAILY 12/30/17 [History] Insulin Glargine,Hum.rec.anlog [Basaglar Kwikpen U-100] 60 unit SQ BID 01/06/18 [History] metOLazone [Zaroxolyn] 2.5 mg PO DAILY 01/06/18 [History] Amoxicillin 500 mg PO QPM #7 tablet 01/13/18 [Rx] Metoclopramide [Reglan] 5 mg PO TIDAC #15 ud.liq 01/13/18 [Rx] Linezolid [Zyvox] 600 mg PO BID #12 tablet 01/21/18 [Rx] predniSONE [PredniSONE] See Taper PO TAPER #20 tablet 01/21/18 [Rx] Allergies/Adverse Reactions: 3 Allergy/AdvReac Type Severity Reaction Status Date / Time No Known Allergies Allergy Verified 01/06/18 09:30 Certification: Further, I certify that my clinical findings support that this patient is homebound (i.e. absences from home require considerable and taxing effort and are for medical reasons or faith services or infrequently or short duration when for other reasons) because: Homebound Reason: Patient requires assistance of a person or device to safely leave home Attestation: My signature below is to certify that this patient is under my care and that I, or nurse practitioner, or a physician's store administrative assistant working with me, has a face-to -face encounter with this patient.
[2018-01-21 18:25] VITALS: BP 155/67
[2018-01-21] MEDS: Ertapenem 500 MG in 0.9 % Sodium Chloride Mini Bag 100 ML IVPB SCH (18:46)
[2018-01-21] MEDS: amLODIPine 5 MG TABLET PO SCH (19:05)
[2018-01-21] MEDS: Isosorbide MONOnitrate (24 HR) 30 MG TAB.ER.24H PO SCH (19:05)
[2018-01-24] MEDS ORDERED: predniSONE 20 MG TABLET PO SCH (09:00)
[2018-01-27] MEDS ORDERED: predniSONE 10 MG TABLET PO SCH (09:00)
== END 2018-01-21 20:52 | disposition home or self-care (01) | DRG 190 ==
LOC: EMEROO 00:40 → 2ANU 00:40
PROVIDERS: ADMIT Internal Medicine; ATTEND Internal Medicine

== ENCOUNTER 2018-02-02 16:43 | Observation (INO) ==
[2018-02-02] MEDS ORDERED: 0.9 % Sodium Chloride 1,000 ML IVC ONE ×2 (16:57→17:08)
--- NOTE | 2018-02-02 16:58 | Emergency Department Note ---
Disposition Clinical Impression: Frequent falls Sepsis Qualifiers: Sepsis type: sepsis due to unspecified organism Qualified Code(s): A41.9 - Sepsis, unspecified organism UTI (urinary tract infection) Qualifiers: Urinary tract infection type: site unspecified Hematuria presence: without hematuria Qualified Code(s): N39.0 - Urinary tract infection, site not specified Bilateral knee pain Qualifiers: Chronicity: acute Qualified Code(s): M25.561 - Pain in right knee Fever Qualifiers: Fever type: unspecified Qualified Code(s): R50.9 - Fever, unspecified Disposition: Admitted As Inpatient Condition: Fair Referrals: Tristen Quintana MD [Primary Care Provider] - Forms: ED Satisfaction Letter Time of Disposition: 21:58 Fall HPI - General Chief Complaint: ED Fall Stated Complaint: fall Time Seen by Provider: 02/02/18 16:53 Source: patient, EMS Mode of arrival: EMS Limitations: no limitations Nursing Notes Reviewed: Yes Vital Signs Reviewed: Yes - History of Present Illness HPI Narrative: Patient is a 62-year-old female with past medical history of diabetes, hyperlipidemia, hypertension, previous CVA with no residual weaknes, DVT, end- stage renal disease, chronic sacral ulcer for which she receives wound care twice a week by home health. She presents today via EMS due to concern for lightheadedness, 3 falls today. Patient says that she was home alone, has been feeling lightheaded when she goes from sitting to standing and also while just sitting. This morning, she fell out of bed onto the floor. She denies hitting her head or any loss of consciousness. She states that she had another fall with similar circumstances. The third time, patient had a fall from a sitting while sitting on a bedside commode, she felt lightheaded during that episode and fell forward. Again, denies hitting her head. She does admit that she fell onto her knees during that incident and has pain in bilateral knees. Denies any loss of consciousness today, any specific numbness, tingling, any focal weakness. She does admit to generalized weakness and some mild confusion. Denies any other chest pain, shortness of breath, nausea, vomiting, abdominal pain, productive cough, dysuria, hematuria. Denies any known fevers at home. - Related Data Home Medications Medication Instructions Recorded Confirmed Omeprazole [PriLOSEC] 20 mg PO DAILY 05/11/15 01/15/18 Colestipol HCl [Colestid] 1 gm PO BID 06/12/15 01/15/18 Carvedilol 12.5 mg PO BID 10/28/15 01/15/18 Calcium Acetate [Phos-LO] 1,334 mg PO TIDWM 09/06/16 01/15/18 Folic Acid/Vit Bcomp,C [Renal 0.8 mg PO DAILY 04/15/17 01/15/18 Vitamin Tablet] ARIPiprazole [Abilify] 10 mg PO DAILY 09/13/17 01/15/18 Aspirin Enteric Coated [Aspirin EC] 81 mg PO DAILY 09/13/17 01/15/18 Budesonide/Formoterol 160/4.5 2 puff IH BIDR 09/13/17 01/15/18 [Symbicort 160/4.5] Cholecalciferol (Vitamin D3) 50,000 unit PO TH 09/13/17 01/15/18 [Vitamin D3] OxyCODONE/APAP 10/325 [Percocet 1 tab PO Q6H PRN 09/13/17 01/15/18 10/325 MG] Sennosides [Senna] 8.6 mg PO BID PRN 09/13/17 01/15/18 Sevelamer [Renvela] 800 mg PO TID 09/13/17 01/15/18 Albuterol Neb [AccuNeb] 0.63 mg IH Q6H PRN 10/18/17 01/15/18 Collagenase Oint [Santyl] 1 appl TP DAILY 11/11/17 01/15/18 Oxybutynin [Ditropan] 5 mg PO TID 11/11/17 01/15/18 Insulin LISPRO [Humalog Kwikpen 0 unit SQ ACHS 11/25/17 01/15/18 U-100] Amitriptyline HCl 100 mg PO HS 12/22/17 01/15/18 Morphine Sulfate SR (12 HR) [MS 30 mg PO Q12HR 12/22/17 01/15/18 Contin] Rosuvastatin [Crestor] 10 mg PO HS 12/22/17 01/15/18 amLODIPine [Norvasc] 5 mg PO DAILY 12/30/17 01/15/18 Insulin Glargine,Hum.rec.anlog 60 unit SQ BID 01/06/18 01/15/18 [Basaglar Kwikpen U-100] metOLazone [Zaroxolyn] 2.5 mg PO DAILY 01/06/18 01/15/18 Previous Rx's Medication Instructions Recorded Gabapentin [Neurontin] 100 mg PO TID #60 capsule 10/21/17 Isosorbide MONOnitrate (24 HR) 30 mg PO DAILY #30 tab.er.24h 11/19/17 [Imdur] Acetaminophen [Tylenol] 650 mg PO Q6HR PRN tablet 12/14/17 Amoxicillin 500 mg PO QPM #7 tablet 01/13/18 Metoclopramide [Reglan] 5 mg PO TIDAC #15 ud.liq 01/13/18 Linezolid [Zyvox] 600 mg PO BID #12 tablet 01/21/18 predniSONE [PredniSONE] See Taper PO TAPER #20 tablet 01/21/18 Allergies Allergy/AdvReac Type Severity Reaction Status Date / Time No Known Allergies Allergy Verified 02/02/18 18:51 All systems ED: reviewed and negative except as stated. Constitutional: Denies: fever Cardiovascular: Denies: chest pain, palpitations Respiratory: Denies: cough, dyspnea, wheezes, sputum production Gastrointestinal: Denies: abdominal pain, nausea, vomiting, diarrhea Genitourinary: Denies: urgency, dysuria, frequency, hematuria Fall PMH - Past Medical History Medical history: Reports: COPD, coronary artery disease, CVA, DVT, diabetes, dialysis, GERD, GI bleed, hyperlipidemia, hypertension, peripheral artery disease, other Surgical history: Reports: angioplasty/stent, appendectomy, cholecystectomy, coronary bypass (CABG), hysterectomy, knee replacement, other, IVC filter Psychiatric history: Reports: anxiety, depression, schizophrenia, previous psychiatric hospitalization, 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 Absent: tenderness, meningismus - Chest Chest inspection: Present: normal inspection, symmetric chest wall rise - Respiratory Respiratory exam: Present: normal lung sounds bilaterally - Cardiovascular Cardiovascular exam: Present: regular rate, normal rhythm, normal heart sounds - Abdominal Exam Abdominal exam: Present: soft, Non-Tender. Absent: tenderness, distention, guarding, rebound, rigidity - Extremities Exam Extremities exam: Present: other (Bruising of the medial aspect of right knee. Scarring of bilateral knees likely due to knee replacement. Chronic venous stasis dermatitis of bilateral lower extremities with moderate swelling.) - Back Exam Back exam: Present: full ROM, other (Sacral ulcer approximately 4 x 4 centimeter , partial-thickness, no pus drainage, mild surrounding erythema). Absent: tenderness - Neurological Exam Neurological exam: Present: alert, oriented X3, CN II-XII intact, other ( Symmetric weakness of bilateral lower extremities, not able to lift legs off the bed. Otherwise, no other focal neurologic deficit. No weakness of upper extremities. Sensation intact of all extremities.) - Psychiatric Psychiatric exam: Present: normal mood, flat affect - Skin Skin exam: Present: warm, dry, intact, normal color Course Course Narrative: Patient was tachycardic, febrile on presentation. We will give Tylenol for fever. Otherwise, the rest of the vitals within normal limits. Patient does have an ulcer that appears erythematous around the ulcer site but no active pus drainage. This could be source of infection. We will perform sepsis focal workup including basic labs, cultures, lactic acid. We will also start fluids on the patient for sepsis protocol and also because patient appears clinically dehydrated on exam. We will also obtain a CT of the head due to frequent falls and lightheadedness, will obtain images of bilateral knees due to bruising and knee pain on exam, will also obtain EKG, chest x-ray, troponin. Patient will likely need to be admitted due to frequent falls, lightheadedness, inability to ambulate which is new for the patient. 21:56 patient has elevated white blood cell count, chronic anemia, elevated creatinine consistent with history of end-stage renal disease. Mild elevation in troponin that is increased secondary to renal failure. Patient has too numerous to count white blood cells in urine, evidence of UTI. Meets sepsis criteria, urosepsis. Patient has been started on empiric antibiotic vancomycin and Zosyn. Patient will be admitted for further care. Of note, Central line was placed for IV access as patient had multiple attempts at IVs peripherally by different staff members and she consented to a central line placement. Vital Signs Temperature 101.2 F H 02/02/18 16:44 Pulse Rate 105 02/02/18 16:44 Respiratory Rate 20 02/02/18 16:44 Blood Pressure 126/77 02/02/18 16:44 O2 Sat by Pulse Oximetry 96 02/02/18 16:44 Temperature 101.2 F H 02/02/18 16:44 Pulse Rate 101 02/02/18 19:54 Respiratory Rate 16 02/02/18 19:54 Blood Pressure 116/57 02/02/18 19:54 O2 Sat by Pulse Oximetry 94 02/02/18 19:54 Oxygen Delivery Oxygen Delivery Nasal Cannula Procedures - Central Line Placement Right IJ Central Line Inserted*: Yes Central Line Catheter Replacement*: No Central Line Insertion: elective Consent Obtained: written consent Procedural Pause: verify patient name and date of , timeout performed per policy, narinder and assess the site, assemble equipment and verify supplies, perform hand hygiene Patient Placed on Monitor/Pulse Ox: Yes During the Procedure: clinician is wearing sterile gloves, cap, mask,& gown during insertion, sterile field and sterile technique are maintained, patient's face is covered with drape or mask and wearing a cap, everyone in room is wearing a mask Central Line Prep: Chlorhexidine scrub Prep the Procedure Site: apply chloraprep to the skin using a back and forth scrubbing motion, apply chloraprep for 30 seconds (upper body), 1-2 min ( femoral sites), allow prep to dry, drape the patient with a full body drape Local Anesthetic: lidocaine 1% Amount of anesthesia used (mL): 2 Ultrasound Used for Placement: Yes Central Line Lumen Inserted: triple Post Procedure: sutured in place, good blood return, all ports aspirated, flushed, capped, sterile dressing applied, guide wire removed and visualized Post Procedure X-Ray: tip of catheter in good position, no pneumothorax seen Patient Tolerated Procedure: well Complications: none, other (Post procedure xray negative for pneumothorax; good line placement) Name of Clinician Inserting Central Line: Dr. delmy Huynh Clinician Assisting/Completing Checklist: Dr. Rudy Torres, Dr. Brooklyn Li Date: 04/25/18 Time: 20:15 Fall - MDM Narrative Medical decision making narrative: Patient was tachycardic, febrile on presentation. We will give Tylenol for fever. Otherwise, the rest of the vitals within normal limits. Patient does have an ulcer that appears erythematous around the ulcer site but no active pus drainage. This could be source of infection. We will perform sepsis focal workup including basic labs, cultures, lactic acid. We will also start fluids on the patient for sepsis protocol and also because patient appears clinically dehydrated on exam. We will also obtain a CT of the head due to frequent falls and lightheadedness, will obtain images of bilateral knees due to bruising and knee pain on exam, will also obtain EKG, chest x-ray, troponin. Patient will likely need to be admitted due to frequent falls, lightheadedness, inability to ambulate which is new for the patient. 21:56 patient has elevated white blood cell count, chronic anemia, elevated creatinine consistent with history of end-stage renal disease. Mild elevation in troponin that is increased secondary to renal failure. Patient has too numerous to count white blood cells in urine, evidence of UTI. Meets sepsis criteria, urosepsis. Patient has been started on empiric antibiotic vancomycin and Zosyn. Patient will be admitted for further care. Of note, Central line was placed for IV access as patient had multiple attempts at IVs peripherally by different staff members and she consented to a central line placement. - Medical Records Medical records reviewed: Yes I reviewed the patient's medical records. - Lab Data Lab results reviewed: Yes I reviewed the patient's lab results. Result diagrams: 02/02/18 20:44 02/02/18 17:35 Lab Results 02/02/18 02/02/18 02/02/18 Range/Units 17:35 17:45 18:36 WBC (4.3-11.1) K/mcL RBC (3.82-4.97) M/mcL Hgb (11.5-15.4) g/dL Hct (35.3-44.9) % MCV (83.0-100.0) fL MCH (28.0-33.3) pg MCHC (31.6-35.5) g/dL RDW (11.5-14.5) % Plt Count (140-400) K/mcL MPV (9.4-12.4) fL Immature Gran % (0-4) % Seg Neutrophils % % Lymphocytes % % Monocytes % % Eosinophils % % Basophils % % Neutrophils # (1.6-8.9) K/mcL Lymphocytes # (0.6-4.6) K/mcL Monocytes # (0.0-1.3) K/mcL Eosinophils # (0.0-0.6) K/mcL Basophils # (0.0-0.2) K/mcL Nucleated RBCs/100 WBC (0) /100 WBC PT (9.4-12.1) Seconds INR APTT (26.0-36.0) Seconds Sample Site R Radial ABG pH 7.48 H (7.32-7.45) pH Units ABG pCO2 31 L (35-45) mmHg ABG pO2 73 L (85-104) mmHg ABG HCO3 23 (21-27) mEq/L ABG Total CO2 24 (20-26) mEq/L ABG O2 Saturation 96 (95-98) % ABG Base Excess 0 (-2 to 3) mEq/L Ricardo Test Positive O2 Delivery Device Cannula Inspired O2 28.0 (1-15=lpm [id number]=%) Sodium 131 L (136-145) mEq/L Potassium 3.6 (3.5-5.1) mEq/L Chloride 97 L (98-107) mEq/L Carbon Dioxide 22 L (23-29) mEq/L BUN 50 H (8-23) mg/dL Creatinine 3.13 H (0.60-1.20) mg/dL Est GFR ( Amer) 18 L (> 60) Est GFR (Non-Af Amer) 15 L (> 60) BUN/Creatinine Ratio 16 (6-26) Glucose 112 H (70-105) mg/dL Calculated Osmolality 286 (280-300) Lactic Acid (0.5-2.2) mmol/L Calcium 9.0 (8.6-10.3) mg/dL Phosphorus 3.6 (2.7-4.5) mg/dL Magnesium 1.6 (1.6-2.6) mg/dL Total Bilirubin 0.5 (0.3-1.0) mg/dL Direct Bilirubin 0.2 (0.0-0.2) mg/dL Indirect Bilirubin 0.3 (0.0-1.2) mg/dL AST 13 (13-39) Units/L ALT 15 (7-52) Units/L Alkaline Phosphatase 219 H (34-104) Units/L Troponin I 0.08 H* (< 0.04) ng/mL Serum Total Protein 6.7 (6.4-8.9) g/dL Albumin 3.5 (3.5-5.7) g/dL Globulin 3.2 (2.4-3.5) g/dL Albumin/Globulin Ratio 1.1 (1.1-2.2) Ur Specimen Adequacy See below A Urine Color Yellow (Yellow) Urine Clarity Turbid A (Clear) Urine pH 6.0 (5.0-8.0) pH Units Ur Specific [place] 1.019 (1.010-1.025) Urine Protein >=300 H (Neg-Trace) mg/dL Urine Glucose (UA) Normal (Normal) mg/dL Urine Ketones Trace H (Negative) mg/dL Urine Blood Moderate H (Negative) Urine Nitrite Negative (Negative) Urine Bilirubin Negative (Negative) Urine Urobilinogen Normal (Normal) mg/dL Ur Leukocyte Esterase Large H (Negative) Urine Microscopic RBC See Below (0-3) per hpf Urine Microscopic WBC TNTC H (0-3) per hpf Ur Squamous Epith Cells See Below (None-Few) per lpf Urine Bacteria See Below (None-Few) per hpf Hyaline Casts See Below (None-Few) per lpf Ur Culture Indicated? YES A (NO) 02/02/18 02/02/18 02/02/18 Range/Units 20:44 20:44 20:44 WBC 12.1 H (4.3-11.1) K/mcL RBC 3.24 L (3.82-4.97) M/mcL Hgb 9.2 L (11.5-15.4) g/dL Hct 28.1 L (35.3-44.9) % MCV 86.7 (83.0-100.0) fL MCH 28.4 (28.0-33.3) pg MCHC 32.7 (31.6-35.5) g/dL RDW 15.5 H (11.5-14.5) % Plt Count 111 L (140-400) K/mcL MPV 10.7 (9.4-12.4) fL Immature Gran % 0.7 (0-4) % Seg Neutrophils % 79.2 % Lymphocytes % 11.8 % Monocytes % 7.4 % Eosinophils % 0.7 % Basophils % 0.2 % Neutrophils # 9.6 H (1.6-8.9) K/mcL Lymphocytes # 1.4 (0.6-4.6) K/mcL Monocytes # 0.9 (0.0-1.3) K/mcL Eosinophils # 0.1 (0.0-0.6) K/mcL Basophils # 0.0 (0.0-0.2) K/mcL Nucleated RBCs/100 WBC 0.2 H (0) /100 WBC PT 12.8 H (9.4-12.1) Seconds INR 1.2 APTT 27.4 (26.0-36.0) Seconds Sample Site ABG pH (7.32-7.45) pH Units ABG pCO2 (35-45) mmHg ABG pO2 (85-104) mmHg ABG HCO3 (21-27) mEq/L ABG Total CO2 (20-26) mEq/L ABG O2 Saturation (95-98) % ABG Base Excess (-2 to 3) mEq/L Ricardo Test O2 Delivery Device Inspired O2 (1-15=lpm [id number]=%) Sodium (136-145) mEq/L Potassium (3.5-5.1) mEq/L Chloride (98-107) mEq/L Carbon Dioxide (23-29) mEq/L BUN (8-23) mg/dL Creatinine (0.60-1.20) mg/dL Est GFR ( Amer) (> 60) Est GFR (Non-Af Amer) (> 60) BUN/Creatinine Ratio (6-26) Glucose (70-105) mg/dL Calculated Osmolality (280-300) Lactic Acid 0.7 (0.5-2.2) mmol/L Calcium (8.6-10.3) mg/dL Phosphorus (2.7-4.5) mg/dL Magnesium (1.6-2.6) mg/dL Total Bilirubin (0.3-1.0) mg/dL Direct Bilirubin (0.0-0.2) mg/dL Indirect Bilirubin (0.0-1.2) mg/dL AST (13-39) Units/L ALT (7-52) Units/L Alkaline Phosphatase (34-104) Units/L Troponin I (< 0.04) ng/mL Serum Total Protein (6.4-8.9) g/dL Albumin (3.5-5.7) g/dL Globulin (2.4-3.5) g/dL Albumin/Globulin Ratio (1.1-2.2) Ur Specimen Adequacy Urine Color (Yellow) Urine Clarity (Clear) Urine pH (5.0-8.0) pH Units Ur Specific [place] (1.010-1.025) Urine Protein (Neg-Trace) mg/dL Urine Glucose (UA) (Normal) mg/dL Urine Ketones (Negative) mg/dL Urine Blood (Negative) Urine Nitrite (Negative) Urine Bilirubin (Negative) Urine Urobilinogen (Normal) mg/dL Ur Leukocyte Esterase (Negative) Urine Microscopic RBC (0-3) per hpf Urine Microscopic WBC (0-3) per hpf Ur Squamous Epith Cells (None-Few) per lpf Urine Bacteria (None-Few) per hpf Hyaline Casts (None-Few) per lpf Ur Culture Indicated? (NO) - Radiology Data Radiology results reviewed: Yes I reviewed the patient's radiology results. Head CT 02/02/18 16:57 IMPRESSION: No acute intracranial abnormality. Diffuse atrophic changes with findings suggesting chronic microvascular ischemia D/ / You Reyes MD / You Reyes MD Interpreting Provider: You Reyes MD Knee X-Ray 02/02/18 17:01 IMPRESSION: Status post bilateral total knee arthroplasties. No acute bony or joint abnormality. No hardware complications. D/ / 02/02/2018 18:56:19 You Reyes MD / vinicius Interpreting Provider: You Reyes MD Chest X-Ray 02/02/18 20:15 IMPRESSION: Tip of the right internal jugular central venous catheter is in the expected location, superimposed over the upper superior vena cava. No pneumothorax is identified. D/ / Anderson Doe MD / Anderson Doe MD Interpreting Provider: Anderson Doe MD - EKG Data EKG attestation: Yes I reviewed and interpreted this EKG. EKG results narrative: 02/02/2018 at 17:04. A. fib, rate 100. QRS 92. QTC 396. No acute ST elevation or depression. Normal axis. S.B.A.R. - S.B.A.RGiuseppe Situation: Demographics, MOA Background: Presenting Complaint, Relevant PMH, Meds, & Allergies Assessment: Vital Signs, Course and respsone to treatment, Exam Concerns, Patient/Family Expectation, Pertinant Lab Results Recommendation: Barrier(s) to disposition, Recommendation based on pending studies, treatments, or consults S.B.A.RGiuseppe Report Given to: Dr. Ryder Keene Repor Time: 21:58
[2018-02-02] MEDS ORDERED: Piperacillin/Tazobactam 3.375 GM in 0.9 % Sodium Chloride Mini Bag 100 ML IVPB ONE (17:38)
--- NOTE | 2018-02-02 17:38 | Emergency Department Note ---
Disposition Clinical Impression: Sepsis Qualifiers: Sepsis type: sepsis due to unspecified organism Qualified Code(s): A41.9 - Sepsis, unspecified organism Disposition: Still a Patient Forms: ED Satisfaction Letter General Adult HPI - General Chief complaint: ED Fall Stated complaint: fall Time Seen by Provider: 02/02/18 16:53 Source: patient, EMS Mode of arrival: EMS Limitations: no limitations - History of Present Illness Pain Scale: 8 - Related Data Home Medications Medication Instructions Recorded Confirmed Omeprazole [PriLOSEC] 20 mg PO DAILY 05/11/15 01/15/18 Colestipol HCl [Colestid] 1 gm PO BID 06/12/15 01/15/18 Carvedilol 12.5 mg PO BID 10/28/15 01/15/18 Calcium Acetate [Phos-LO] 1,334 mg PO TIDWM 09/06/16 01/15/18 Folic Acid/Vit Bcomp,C [Renal 0.8 mg PO DAILY 04/15/17 01/15/18 Vitamin Tablet] ARIPiprazole [Abilify] 10 mg PO DAILY 09/13/17 01/15/18 Aspirin Enteric Coated [Aspirin EC] 81 mg PO DAILY 09/13/17 01/15/18 Budesonide/Formoterol 160/4.5 2 puff IH BIDR 09/13/17 01/15/18 [Symbicort 160/4.5] Cholecalciferol (Vitamin D3) 50,000 unit PO TH 09/13/17 01/15/18 [Vitamin D3] OxyCODONE/APAP 10/325 [Percocet 1 tab PO Q6H PRN 09/13/17 01/15/18 10/325 MG] Sennosides [Senna] 8.6 mg PO BID PRN 09/13/17 01/15/18 Sevelamer [Renvela] 800 mg PO TID 09/13/17 01/15/18 Albuterol Neb [AccuNeb] 0.63 mg IH Q6H PRN 10/18/17 01/15/18 Collagenase Oint [Santyl] 1 appl TP DAILY 11/11/17 01/15/18 Oxybutynin [Ditropan] 5 mg PO TID 11/11/17 01/15/18 Insulin LISPRO [Humalog Kwikpen 0 unit SQ ACHS 11/25/17 01/15/18 U-100] Amitriptyline HCl 100 mg PO HS 12/22/17 01/15/18 Morphine Sulfate SR (12 HR) [MS 30 mg PO Q12HR 12/22/17 01/15/18 Contin] Rosuvastatin [Crestor] 10 mg PO HS 12/22/17 01/15/18 amLODIPine [Norvasc] 5 mg PO DAILY 12/30/17 01/15/18 Insulin Glargine,Hum.rec.anlog 60 unit SQ BID 01/06/18 01/15/18 [Basaglar Kwikpen U-100] metOLazone [Zaroxolyn] 2.5 mg PO DAILY 01/06/18 01/15/18 Previous Rx's Medication Instructions Recorded Gabapentin [Neurontin] 100 mg PO TID #60 capsule 10/21/17 Isosorbide MONOnitrate (24 HR) 30 mg PO DAILY #30 tab.er.24h 11/19/17 [Imdur] Acetaminophen [Tylenol] 650 mg PO Q6HR PRN tablet 12/14/17 Amoxicillin 500 mg PO QPM #7 tablet 01/13/18 Metoclopramide [Reglan] 5 mg PO TIDAC #15 ud.liq 01/13/18 Linezolid [Zyvox] 600 mg PO BID #12 tablet 01/21/18 predniSONE [PredniSONE] See Taper PO TAPER #20 tablet 01/21/18 Allergies Allergy/AdvReac Type Severity Reaction Status Date / Time No Known Allergies Allergy Verified 01/06/18 09:30 Constitutional: Denies: fever Cardiovascular: Denies: chest pain, palpitations Respiratory: Denies: cough, dyspnea, wheezes, sputum production Gastrointestinal: Denies: abdominal pain, nausea, vomiting, diarrhea Genitourinary: Denies: urgency, dysuria, frequency, hematuria Past Medical History - Past Medical History Medical history: Reports: COPD, coronary artery disease, CVA, DVT, diabetes, dialysis, GERD, GI bleed, hyperlipidemia, hypertension, peripheral artery disease, other Surgical history: Reports: angioplasty/stent, appendectomy, cholecystectomy, coronary bypass (CABG), hysterectomy, knee replacement, other, IVC filter Psychiatric history: Reports: anxiety, depression, schizophrenia, previous psychiatric hospitalization, other [employer]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 - Social History Smoking Status: Current every day smoker Smokeless Tobacco Status: No Alcohol use: Reports: none Drug use: Reports: none Physical Exam - General Limitations: no limitations General appearance: alert, in no apparent distress Course Vital Signs Temperature 101.2 F H 02/02/18 16:44 Pulse Rate 105 02/02/18 16:44 Respiratory Rate 20 02/02/18 16:44 Blood Pressure 126/77 02/02/18 16:44 O2 Sat by Pulse Oximetry 96 02/02/18 16:44 Temperature 101.2 F H 02/02/18 16:44 Pulse Rate 105 02/02/18 16:44 Respiratory Rate 20 02/02/18 16:44 Blood Pressure 126/77 02/02/18 16:44 O2 Sat by Pulse Oximetry 96 02/02/18 16:44 Oxygen Delivery Oxygen Delivery Room Air Attestation Statement - Attestation Attestation: I examined this patient and my medical decision-making was reviewed with the Resident Physician. I agree with the documented findings, disposition and treatment plan as described except to the extent set forth below. 62 year old female prsentse to the eD with complaints of altered mental status and weakness with fall. She has a sacral decubitus that apppears cellulitis but has it changed and watched after by homehealth. Killian believe that the infection is liley coming from her urine because it loks like "milk". Killian is also a dialysis patient with Dr. Whiteside. We meets SIRS criteria and qiana is septic. We will start sepsis wokrup and admit ot maite.
[2018-02-02 18:13] LABS: Clarity,Urine Turbid (Clear); Color,Urine Yellow (Yellow)
[2018-02-02 18:13] LABS: Albumin 3.5 g/dL (3.5-5.7); Albumin/Globulin Ratio 1.1 (1.1-2.2); Bilirubin,Direct 0.2 mg/dL (0.0-0.2); Bilirubin,Indirect 0.3 mg/dL (0.0-1.2); Bilirubin,Total 0.5 mg/dL (0.3-1.0); Globulin 3.2 g/dL (2.4-3.5); Magnesium 1.6 mg/dL (1.6-2.6); Phosphorous 3.6 mg/dL (2.7-4.5); Potassium 3.6 mEq/L (3.5-5.1); Total Protein 6.7 g/dL (6.4-8.9)
[2018-02-02 18:14] LABS: Bilirubin,Urine Negative (Negative); Blood,Urine Moderate (Negative); Glucose,Urine (UA) Normal (Normal); Ketones,Urine Trace mg/dL (Negative); Nitrite,Urine Negative (Negative); Protein,Urine >=300 mg/dL (Neg-Trace); Specific Gravity,Urine 1.019 (1.010-1.025); Urobilinogen,Urine Normal (Normal)
[2018-02-02 18:15] LABS: Leukocyte Esterase,Urine Large (Negative)
[2018-02-02 18:20] LABS: Troponin I 0.08 ng/mL (< 0.04)
[2018-02-02 18:21] LABS: WBC,Urine TNTC per hpf (0-3)
[2018-02-02] MEDS ORDERED: Aspirin 325 MG TABLET PO ONE (18:21)
[2018-02-02 18:39] LABS: ABG Base Excess 0 mEq/L (-2 to 3); ABG HCO3 23 mEq/L (21-27); ABG Oxygen Saturation 96 % (95-98); ABG PCO2 31 mmHg (35-45); ABG PH 7.48 pH Units (7.32-7.45); ABG PO2 73 mmHg (85-104); ABG TCO2 24 mEq/L (20-26)
[2018-02-02 21:00] LABS: Basophils % 0.2 %; Eosinophils # 0.1 K/mcL (0.0-0.6); Eosinophils % 0.7 %; Hematocrit 28.1 % (35.3-44.9); Hemoglobin 9.2 g/dL (11.5-15.4); Immature Granulocytes % 0.7 % (0-4); Lymphocytes # 1.4 K/mcL (0.6-4.6); Lymphocytes % 11.8 %; Mean Corpuscular HGB Conc 32.7 g/dL (31.6-35.5); Mean Corpuscular Hemoglobin 28.4 pg (28.0-33.3); Mean Corpuscular Volume 86.7 fL (83.0-100.0); Mean Platelet Volume 10.7 fL (9.4-12.4); Monocytes # 0.9 K/mcL (0.0-1.3); Monocytes % 7.4 %; Neutrophils # 9.6 K/mcL (1.6-8.9); Nucleated Red Blood Cells 0.2 /100 WBC (0); Platelet Count 111 K/mcL (140-400); Red Blood Count 3.24 M/mcL (3.82-4.97); Red Cell Distribution Width 15.5 % (11.5-14.5); Segmented Neutrophils % 79.2 %
[2018-02-02 21:04] LABS: INR 1.2; Prothrombin Time 12.8 Seconds (9.4-12.1)
[2018-02-02 21:07] LABS: Activated Partial Thrombo Time 27.4 Seconds (26.0-36.0)
[2018-02-03] MEDS ORDERED: Naloxone 0.4 MG/ML INJ IVP PRN (01:30)
[2018-02-03] MEDS ORDERED: 0.9 % Sodium Chloride 1,000 ML IVC SCH (01:30)
[2018-02-03] MEDS ORDERED: *HR* Dextrose 50 % in Water (Syg) 50 ML SYRINGE IVP PRN (01:37)
[2018-02-03] MEDS ORDERED: D5% in Water 1,000 ML IVC PRN (01:37)
[2018-02-03] MEDS ORDERED: Dextrose Gel 15 GM/37.5 ML TUBE PO PRN ×2 (01:37)
[2018-02-03] MEDS ORDERED: Vancomycin (wt based) 1,000 MG VIAL IVPB SCH (02:00)
[2018-02-03] MEDS ORDERED: Albuterol Neb 0.63 MG/3 ML VIAL IH PRN (02:17)
[2018-02-03] MEDS ORDERED: Acetaminophen IV 1,000 MG/100 ML INFUS..BTL IVPB ONE (04:38)
--- NOTE | 2018-02-03 05:31 | Internal Med History&Physical ---
Date of Encounter: 02/03/18 Time of Encounter: 01:00 Internal Medicine - H&P: HPI Chief complaint: Weakness and fever Admitted From: Home Plans for Post Hospital Care: Home History of present illness: Ms. Riley is a 62 year old female present to ER for weakness and fever since yesterday. Past medical history is significant for diabetes, hypertension, end- stage renal disease on hemodialysis. Patient said she is generalized weak today, lethargic, cannot walk. Patient has fever, chills. Patient has cough with brownish sputum. Patient has nausea and vomiting and abdominal pain. The vomiting are stomach content, no blood in it. Patient denies dysuria but says her urine looks like milk. Patient denies diarrhea. In the emergency room, chest x-ray shows improvement of previous infiltrate. Urine analysis shows a UTI. Patient was started on Vanco and Zosyn and admitted as urosepsis. I have discussed CODE STATUS with patient. She is AAO 3 and clearly told me she does not want CPR or intubation. DNR DNI placed. Past Med Surg Social Fam HX - Past Medical History Medical history: COPD, coronary artery disease, CVA, DVT, diabetes, dialysis, GERD, GI bleed, hyperlipidemia, hypertension, peripheral artery disease, other Psychiatric history: anxiety, depression, schizophrenia, previous psychiatric hospitalization - Past Surgical History Surgical History: angioplasty/stent, appendectomy, cholecystectomy, coronary bypass (CABG), hysterectomy, knee replacement, other, IVC filter - Social History Smoking Status: Current every day smoker Smokeless Tobacco Status: No Alcohol use: none Drug use: none - Family History Father Family Member Ethnicity: Non- Living Status: Hx Family Cardiac Disorders: Yes (CAD, [place]) Hx Family Cancer: Yes (Polycythemia) Hx Family Endocrine Disorder: Yes (DM) Mother Family Member Ethnicity: Non- Living Status: Still Living Hx Family Cardiac Disorders: Yes Hx Family Respiratory Disorders: Yes (End stage COPD) Brother Adopted: No Family Member Ethnicity: Non- Living Status: Still Living Hx Family Cardiac Disorders: No Hx Family Respiratory Disorders: No Hx Family Cancer: No Hx Family GI Disorders: No Hx Family Endocrine Disorder: No Hx Family Neuromuscular Disorders: No Hx Family Neurologic Disorders: No Hx Family HEENT Disorders: No Hx Family Autoimmune Disorders: No Sister Adopted: No Family Member Ethnicity: Non- Living Status: Still Living Hx Family Cardiac Disorders: Yes Hx Family Respiratory Disorders: No Hx Family Cancer: No Hx Family GI Disorders: No Hx Family Endocrine Disorder: Yes Hx Family Neuromuscular Disorders: No Hx Family Neurologic Disorders: No Hx Family HEENT Disorders: No Hx Family Autoimmune Disorders: No Internal Medicine - H&P: Meds Omeprazole [PriLOSEC] 20 mg PO DAILY 05/11/15 [History] Colestipol HCl [Colestid] 1 gm PO BID 06/12/15 [History] Carvedilol 12.5 mg PO BID 10/28/15 [History] Calcium Acetate [Phos-LO] 1,334 mg PO TIDWM 09/06/16 [History] Folic Acid/Vit Bcomp,C [Renal Vitamin Tablet] 0.8 mg PO DAILY 04/15/17 [History] ARIPiprazole [Abilify] 10 mg PO DAILY 09/13/17 [History] Aspirin Enteric Coated [Aspirin EC] 81 mg PO DAILY 09/13/17 [History] Budesonide/Formoterol 160/4.5 [Symbicort 160/4.5] 2 puff IH BIDR 09/13/17 [ History] Cholecalciferol (Vitamin D3) [Vitamin D3] 50,000 unit PO TH 09/13/17 [History] OxyCODONE/APAP 10/325 [Percocet 10/325 MG] 1 tab PO Q6H PRN 09/13/17 [History] Sennosides [Senna] 8.6 mg PO BID PRN 09/13/17 [History] Sevelamer [Renvela] 800 mg PO TID 09/13/17 [History] Albuterol Neb [AccuNeb] 0.63 mg IH Q6H PRN 10/18/17 [History] Gabapentin [Neurontin] 100 mg PO TID #60 capsule 10/21/17 [Rx] Collagenase Oint [Santyl] 1 appl TP DAILY 11/11/17 [History] Oxybutynin [Ditropan] 5 mg PO TID 11/11/17 [History] Isosorbide MONOnitrate (24 HR) [Imdur] 30 mg PO DAILY #30 tab.er.24h 11/19/17 [ Rx] Insulin LISPRO [Humalog Kwikpen U-100] 0 unit SQ ACHS 11/25/17 [History] Acetaminophen [Tylenol] 650 mg PO Q6HR PRN tablet 12/14/17 [Rx] Amitriptyline HCl 100 mg PO HS 12/22/17 [History] Morphine Sulfate SR (12 HR) [MS Contin] 30 mg PO Q12HR 12/22/17 [History] Rosuvastatin [Crestor] 10 mg PO HS 12/22/17 [History] amLODIPine [Norvasc] 5 mg PO DAILY 12/30/17 [History] Insulin Glargine,Hum.rec.anlog [Basaglar Kwikpen U-100] 60 unit SQ BID 01/06/18 [History] metOLazone [Zaroxolyn] 2.5 mg PO DAILY 01/06/18 [History] Amoxicillin 500 mg PO QPM #7 tablet 01/13/18 [Rx] Metoclopramide [Reglan] 5 mg PO TIDAC #15 ud.liq 01/13/18 [Rx] Linezolid [Zyvox] 600 mg PO BID #12 tablet 01/21/18 [Rx] predniSONE [PredniSONE] See Taper PO TAPER #20 tablet 01/21/18 [Rx] 3 Allergy/AdvReac Type Severity Reaction Status Date / Time No Known Allergies Allergy Verified 02/02/18 18:51 All Systems PM: A 10-system review of systems was performed and is negative for pertinent findings except as documented above in the HPI. - Constitutional Vitals: Temp Pulse Resp BP Pulse Ox 102.6 F H 103 22 126/52 96 02/03/18 04:15 02/03/18 04:15 02/03/18 04:15 02/03/18 04:15 02/03/18 04:15 General appearance: Present: mild distress, A&O X 3, answers questions appropriately - Head Head exam: Present: atraumatic, normocephalic - Eye Eye exam: Present: PERRL, conjuntiva pink, sclera anicteric Pupils: Present: PERRL - Neck Neck exam general surgery: Present: supple, trachea midline. Absent: lymphadenopathy - Respiratory Respiratory exam: Present: CTAB. Absent: accessory muscle use, rales, rhonchi, wheezes - Cardiovascular Cardiovascular exam: Present: RRR, +S1, +S2. Absent: diastolic murmur, gallop, rubs, systolic murmur - GI/Abdominal GI/Abdominal exam: Present: normal bowel sounds, soft, tenderness (Mild tenderness in 4Q, without rebound or guarding), no peritoneal signs. Absent: distended - Extremities Exam Extremities exam: Present: warm, radial pulses palpable and symmetrical. Absent : calf tenderness, cyanotic, pedal edema - Neurological Exam Neurological exam: Present: CN II-XII intact, oriented X3, no focal deficits. Absent: pronater drift, facial droop, speech deficit - Skin Skin exam: Present: dry, intact Internal Med - H&P Results - Labs CBC & Chem 7: 02/02/18 20:44 02/02/18 17:35 Labs: Cardiac Enzymes 02/03/18 Range/Units 01:45 Troponin I 0.03 (< 0.04) ng/mL - Impressions ITS Impressions Abdomen/Pelvis CT 02/03/18 01:42 IMPRESSION: Appropriate right nephroureteral stent positioning. New moderate right pelvocaliectasis with gas fluid level in the upper collecting system, gas in the ureter and within the urinary bladder -presumably postprocedural however this could potentially be related to urosepsis. New periureteral and right pericolic gutter inflammatory stranding. Right retroperitoneal lymphadenopathy is not substantially changed, presumably reactive. Hepatosplenomegaly. Small right pleural effusion. D/ / Hebert Cherry / Hebert Cherry Interpreting Provider: Hebert Cherry - Assessment and plan (1) Sepsis Current Visit: Yes Status: Acute Assessment and plan: Patient has fever, tachycardia, leukocytosis, meet criteria of sepsis, infection source should be UTI. - Early goal directed IV fluid resuscitation started the from ER. Initial lactate acid 0.7 - Patient was started on Vanco and Zosyn in emergency room - Check patient recent urine culture results, which shows ESBL Escherichia coli and Enterococus, will change antibiotic to Linezolid and ertapenem per sensitivity. - Continue closely monitor patient Qualifiers: Sepsis type: sepsis due to unspecified organism Qualified Code(s): A41.9 - Sepsis, unspecified organism (2) UTI (urinary tract infection) Current Visit: Yes Status: Acute Assessment and plan: Management as above. CT abdomen shows no obstruction Qualifiers: Urinary tract infection type: site unspecified Hematuria presence: without hematuria Qualified Code(s): N39.0 - Urinary tract infection, site not specified (3) CKD stage 4 due to type 2 diabetes mellitus Current Visit: No Status: Acute Assessment and plan: Patient is on hemodialysis. Will consult nephrology and continue hemodialysis (4) DVT prophylaxis Current Visit: No Status: Acute Assessment and plan: Heparin subcutaneously (5) Diabetes Current Visit: No Status: Chronic Assessment and plan: Continue basal and sliding scale insulin coverage. Closely monitor blood sugar level. Qualifiers: Diabetes mellitus type: type 2 Diabetes mellitus long-term insulin use: with termite renewal inspector use Diabetes mellitus complication status: with hyperglycemia Qualified Code(s): E11.65 - Type 2 diabetes mellitus with hyperglycemia; Z79.4 - watermaster (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 of insulin - Time Spent With Patient Total time spent is greater than 50% in coordination of care (as documented) at patient's floor/unit and/or counseling patient: 40 minutes Greater than 35 minutes
[2018-02-03 05:38] LABS: Eosinophils % 0.2 %
[2018-02-03 05:40] LABS: Basophils % 0.1 %; Hematocrit 27.7 % (35.3-44.9); Hemoglobin 8.9 g/dL (11.5-15.4); Immature Granulocytes % 1.1 % (0-4); Immature Platelets 2.6 % (1.1-6.1); Lymphocytes # 1.1 K/mcL (0.6-4.6); Lymphocytes % 8.5 %; Mean Corpuscular HGB Conc 32.1 g/dL (31.6-35.5); Mean Corpuscular Hemoglobin 28.3 pg (28.0-33.3); Mean Corpuscular Volume 87.9 fL (83.0-100.0); Mean Platelet Volume 10.8 fL (9.4-12.4); Monocytes % 7.8 %; Neutrophils # 10.3 K/mcL (1.6-8.9); Platelet Count 108 K/mcL (140-400); Red Blood Count 3.15 M/mcL (3.82-4.97); Red Cell Distribution Width 15.7 % (11.5-14.5); Segmented Neutrophils % 82.3 %
[2018-02-03 05:57] LABS: Magnesium 1.5 mg/dL (1.6-2.6); Potassium 3.4 mEq/L (3.5-5.1)
[2018-02-03] MEDS: *HR* Heparin 5,000 UNIT/ML VIAL SQ SCH ×2 (06:23→18:06)
[2018-02-03] MEDS: Insulin LISPRO 300 UNITS/3 ML VIAL SQ SCH ×4 (08:05→23:02)
[2018-02-03] MEDS: Budesonide/Formoterol 160/4.5 MDI IH SCH ×2 (08:11→19:47)
[2018-02-03] MEDS ORDERED: 0.9 % Sodium Chloride 250 ML IVC PRN (08:11)
[2018-02-03] MEDS ORDERED: 0.9 % Sodium Chloride 1,000 ML ONE (08:12)
[2018-02-03] MEDS: Aspirin Enteric Coated 81 MG Tablet PO SCH (08:13)
[2018-02-03] MEDS ORDERED: Aminoglycoside Consult 1 EACH MC ONE (08:15)
[2018-02-03] MEDS ORDERED: Piperacillin/Tazobactam 3.375 GM in D5% in Water (Mini-Bag+) 100 ML IVPB SCH (09:00)
--- NOTE | 2018-02-03 10:09 | Nephrology Consult Note ---
Date of Encounter: 02/03/18 Time of Encounter: 08:55 Assessment and Plan (1) ESRD (end stage renal disease) Current Visit: No Status: Chronic ESRD on HD //. Pt of Dr. Rivers's and she dialyzes at [facility] in [place], [place], via a LUE AVG with her most recent listed Target Weight of about 97kg. I logged into the [facility] [employer] mobile EHR leann and see that she last dialyzed for about 100 min; interestingly, she is typically on //, but this last Wednesday the [facility] dialysis unit had a water purification problem, so all the M/W/F pt's were rescheduled to Wednesday. Today is , and since her last treatment was only 100 min, typically 210 min, she should have HD today for clearance, UF and this may help her AMS. Her home med list in the [facility] records revealed that she takes, oral Morphine, and this is not reeves in ESRD d/t the much higher risks for toxic metabolites that would contribute to AMS. I recommend she have this adjusted. Agree with treating SIRS/Sepsis. She has a hx of right hydro was s/p ureteral stent a few months ago with [facility]. It's not clear if she still has the stent in place. Will defer to Urology. Appreciate the hospitalist for addressing the sacral decub. The pt affirmed having more and more pain over time and was seen and examined in the ER laying her her side to help off-load the pressure of laying directly on the decub. Depending upon timing, it may be helpful to have HD tomorrow (Wednesday) to realign her back to the typical /W/ schedule Thank you for consulting the [facility] service. My colleague Dr. Askew will be covering the hospital service tomorrow. (2) Hyponatremia Current Visit: No Status: Chronic Would recommend against chronically having her take metolazone 2.5mg po daily, as was listed in her [facility] med list, as this clearly would contribute to her known and recurrent hyponatremia. (3) Hydronephrosis Current Visit: No Status: Chronic See above Qualifiers: Hydronephrosis type: unspecified Qualified Code(s): N13.30 - Unspecified hydronephrosis (4) Altered mental status Current Visit: No Status: Acute See above. As per primary team. HD today as clearance may help if there is a uremic component. Qualifiers: Altered mental status type: somnolence Qualified Code(s): R40.0 - Somnolence (5) Anemia in chronic kidney disease, on chronic dialysis Current Visit: No Status: Chronic Goal Hgb is 10-11. Will monitor. History of Present Illness - Reason for Consult Consult date: 02/03/18 end stage renal disease Requesting physician: Angelo Berkowitz - Chief Complaint AMS s/p Fall, Sacral wound, UTI and hx of ESRD Past Med Surg Social Fam HX - Past Medical History Medical history: COPD, coronary artery disease, CVA, DVT, diabetes, dialysis, GERD, GI bleed, hyperlipidemia, hypertension, peripheral artery disease, other Psychiatric history: anxiety, depression, schizophrenia, previous psychiatric hospitalization - Past Surgical History Surgical History: angioplasty/stent, appendectomy, cholecystectomy, coronary bypass (CABG), hysterectomy, knee replacement, other, IVC filter - Social History Smoking Status: Current every day smoker Smokeless Tobacco Status: No Alcohol use: none Drug use: none - Family History Father Family Member Ethnicity: Non- Living Status: Hx Family Cardiac Disorders: Yes (CAD, [place]) Hx Family Cancer: Yes (Polycythemia) Hx Family Endocrine Disorder: Yes (DM) Mother Family Member Ethnicity: Non- Living Status: Still Living Hx Family Cardiac Disorders: Yes Hx Family Respiratory Disorders: Yes (End stage COPD) Brother Adopted: No Family Member Ethnicity: Non- Living Status: Still Living Hx Family Cardiac Disorders: No Hx Family Respiratory Disorders: No Hx Family Cancer: No Hx Family GI Disorders: No Hx Family Endocrine Disorder: No Hx Family Neuromuscular Disorders: No Hx Family Neurologic Disorders: No Hx Family HEENT Disorders: No Hx Family Autoimmune Disorders: No Sister Adopted: No Family Member Ethnicity: Non- Living Status: Still Living Hx Family Cardiac Disorders: Yes Hx Family Respiratory Disorders: No Hx Family Cancer: No Hx Family GI Disorders: No Hx Family Endocrine Disorder: Yes Hx Family Neuromuscular Disorders: No Hx Family Neurologic Disorders: No Hx Family HEENT Disorders: No Hx Family Autoimmune Disorders: No Medications and Allergies Omeprazole [PriLOSEC] 20 mg PO DAILY 05/11/15 [History] Colestipol HCl [Colestid] 1 gm PO BID 06/12/15 [History] Carvedilol 12.5 mg PO BID 10/28/15 [History] Calcium Acetate [Phos-LO] 1,334 mg PO TIDWM 09/06/16 [History] Folic Acid/Vit Bcomp,C [Renal Vitamin Tablet] 0.8 mg PO DAILY 04/15/17 [History] ARIPiprazole [Abilify] 10 mg PO DAILY 09/13/17 [History] Aspirin Enteric Coated [Aspirin EC] 81 mg PO DAILY 09/13/17 [History] Budesonide/Formoterol 160/4.5 [Symbicort 160/4.5] 2 puff IH BIDR 09/13/17 [ History] Cholecalciferol (Vitamin D3) [Vitamin D3] 50,000 unit PO TH 09/13/17 [History] OxyCODONE/APAP 10/325 [Percocet 10/325 MG] 1 tab PO Q6H PRN 09/13/17 [History] Sennosides [Senna] 8.6 mg PO BID PRN 09/13/17 [History] Sevelamer [Renvela] 800 mg PO TID 09/13/17 [History] Albuterol Neb [AccuNeb] 0.63 mg IH Q6H PRN 10/18/17 [History] Gabapentin [Neurontin] 100 mg PO TID #60 capsule 10/21/17 [Rx] Collagenase Oint [Santyl] 1 appl TP DAILY 11/11/17 [History] Oxybutynin [Ditropan] 5 mg PO TID 11/11/17 [History] Isosorbide MONOnitrate (24 HR) [Imdur] 30 mg PO DAILY #30 tab.er.24h 11/19/17 [ Rx] Insulin LISPRO [Humalog Kwikpen U-100] 0 unit SQ ACHS 11/25/17 [History] Acetaminophen [Tylenol] 650 mg PO Q6HR PRN tablet 12/14/17 [Rx] Amitriptyline HCl 100 mg PO HS 12/22/17 [History] Morphine Sulfate SR (12 HR) [MS Contin] 30 mg PO Q12HR 12/22/17 [History] Rosuvastatin [Crestor] 10 mg PO HS 12/22/17 [History] amLODIPine [Norvasc] 5 mg PO DAILY 12/30/17 [History] Insulin Glargine,Hum.rec.anlog [Basaglar Kwikpen U-100] 60 unit SQ BID 01/06/18 [History] metOLazone [Zaroxolyn] 2.5 mg PO DAILY 01/06/18 [History] Amoxicillin 500 mg PO QPM #7 tablet 01/13/18 [Rx] Metoclopramide [Reglan] 5 mg PO TIDAC #15 ud.liq 01/13/18 [Rx] Linezolid [Zyvox] 600 mg PO BID #12 tablet 01/21/18 [Rx] predniSONE [PredniSONE] See Taper PO TAPER #20 tablet 01/21/18 [Rx] 3 Allergy/AdvReac Type Severity Reaction Status Date / Time No Known Allergies Allergy Verified 02/02/18 18:51 Review of Systems All Systems: reviewed and no additional remarkable complaints except as stated Exam - Vital Signs Vital signs: Initial Vital Signs Temp Pulse Resp BP Pulse Ox 101.2 F H 105 20 126/77 96 02/02/18 16:44 02/02/18 16:44 02/02/18 16:44 02/02/18 16:44 02/02/18 16:44 Vital Signs - Last 8 Hours Temp Pulse Resp BP Pulse Ox 02/03/18 08:14 16 100 02/03/18 07:05 100.6 F H 97 20 103/52 98 02/03/18 04:15 102.6 F H 103 22 126/52 96 Intake and Output 02/02/18 02/03/18 02/03/18 23:59 07:59 15:59 Intake Total 100 / 100 120 / 120 Balance 100 / 100 120 / 120 Intake: IV Fluids 100 / 100 Ofirmev 1,000 mg/100 ml 1,000 100 / 100 mg In 100 ml @ 400 mls/hr IVPB ONCE ONE Rx#:[id number] Oral 120 / 120 Other: Percent of Meal Consumed 10% Weight 107.5 kg Blood Glucose* 81 Patient Weight 02/03/18 23:59 Weight 107.5 kg - General Appearance General appearance: obese, chronically ill, fatigue, frail EENT: mucous membranes dry Neck: supple Respiratory: course breath sounds Cardiology: edema (trace to 1+ pretibial pitting edema bilaterally), regular rate, regular rhythm, normal S1, normal S2 Gastrointestinal: normoactive bowel sounds, no tenderness, no guarding Integumentary: warm and dry, ecchymotic Neurologic: no asterixis, confused Musculoskeletal: no cyanosis Psychiatric: cooperative Results - Lab Results 02/03/18 04:00 02/03/18 04:00 Most recent lab results ABG pH 7.48 pH Units (7.32-7.45) H 02/02/18 18:36 ABG pCO2 31 mmHg (35-45) L 02/02/18 18:36 ABG pO2 73 mmHg (85-104) L 02/02/18 18:36 ABG HCO3 23 mEq/L (21-27) 02/02/18 18:36 ABG O2 Saturation 96 % (95-98) 02/02/18 18:36 Calcium 8.0 mg/dL (8.6-10.3) L 02/03/18 04:00 Phosphorus 3.6 mg/dL (2.7-4.5) 02/02/18 17:35 Magnesium 1.5 mg/dL (1.6-2.6) L 02/03/18 04:00 I reviewed the labs, meds, vitals, progress notes, and imaging. Consult Discharge Plan - Plan Referrals: Tristen Quintana MD [Primary Care Provider] -
[2018-02-03] MEDS: Isosorbide MONOnitrate (24 HR) 30 MG TAB.ER.24H PO SCH (11:51)
[2018-02-03] MEDS: amLODIPine 5 MG TABLET PO SCH (11:51)
--- NOTE | 2018-02-03 19:25 | Event Note ---
Date of Encounter: 02/03/18 Time of Encounter: 11:00 Patient evaluated by nocturnalist earlier this morning and also by myself 1. Urosepsis Continue ertapenem and linezolid 2. Bacteremia Cultures positive for gram-negative rods Continue antibiotics as above 3. End-stage renal disease Nephrology following
[2018-02-03] MEDS: Acetaminophen 325 MG TABLET PO PRN (23:02)
[2018-02-03] MEDS: Insulin DETEMIR 100 UNIT/ML X5UNITS SQ SCH (23:02)
[2018-02-04 03:41] LABS: Red Cell Distribution Width 15.6 % (11.5-14.5)
[2018-02-04 03:43] LABS: Basophils % 0.1 %; Eosinophils # 0.2 K/mcL (0.0-0.6); Eosinophils % 2.2 %; Hematocrit 26.3 % (35.3-44.9); Hemoglobin 8.5 g/dL (11.5-15.4); Immature Granulocytes % 0.7 % (0-4); Immature Platelets 4.2 % (1.1-6.1); Lymphocytes # 1.1 K/mcL (0.6-4.6); Lymphocytes % 14.6 %; Mean Corpuscular HGB Conc 32.3 g/dL (31.6-35.5); Mean Corpuscular Hemoglobin 28.2 pg (28.0-33.3); Mean Corpuscular Volume 87.4 fL (83.0-100.0); Mean Platelet Volume 10.8 fL (9.4-12.4); Monocytes # 0.7 K/mcL (0.0-1.3); Monocytes % 9.5 %; Neutrophils # 5.3 K/mcL (1.6-8.9); Nucleated Red Blood Cells 0.3 /100 WBC (0); Platelet Count 101 K/mcL (140-400); Red Blood Count 3.01 M/mcL (3.82-4.97); Segmented Neutrophils % 72.9 %
[2018-02-04] MEDS: Acetaminophen 325 MG TABLET PO PRN ×2 (03:57→14:35)
[2018-02-04 03:58] LABS: Calcium 8.1 mg/dL (8.6-10.3); Potassium 3.4 mEq/L (3.5-5.1)
[2018-02-04] MEDS: *HR* Heparin 5,000 UNIT/ML VIAL SQ SCH ×2 (05:19→17:25)
[2018-02-04 07:21] LABS: Acinetobacter baumannii by PCR Not Detected (Not Detect); Candida albicans by PCR Not Detected (Not Detect); Candida glabrata by PCR Not Detected (Not Detect); Candida krusei by PCR Not Detected (Not Detect); Candida parapsilosis by PCR Not Detected (Not Detect); Candida tropicalis by PCR Not Detected (Not Detect); Enterococcus by PCR Not Detected (Not Detect); Klebsiella oxytoca by PCR Not Detected (Not Detect); Klebsiella pneumoniae by PCR Not Detected (Not Detect); Pseudomonas aeruginosa by PCR Not Detected (Not Detect); Serratia marcescens by PCR Not Detected (Not Detect); Staphylococcus aureus by PCR Not Detected (Not Detect); Streptococcus agalactiae(B)PCR Not Detected (Not Detect); Streptococcus by PCR Not Detected (Not Detect); Streptococcus pneumoniae PCR Not Detected (Not Detect); Streptococcus pyogenes (A) PCR Not Detected (Not Detect); blaKPC Carbapenem-Resist Gene Not Detected (Not Detect); mecA Methicillin-Resist Gene Not Detected (Not Detect); vanA/B Vancomycin-Resist Genes Not Detected (Not Detect)
[2018-02-04 07:24] LABS: Escherichia coli by PCR ***DETECTED*** (Not Detect)
[2018-02-04] MEDS ORDERED: 0.9 % Sodium Chloride 1,000 ML ONE (07:29)
[2018-02-04] MEDS ORDERED: 0.9 % Sodium Chloride 250 ML IVC PRN (07:33)
[2018-02-04] MEDS: Aspirin Enteric Coated 81 MG Tablet PO SCH (07:44)
[2018-02-04] MEDS: Insulin LISPRO 300 UNITS/3 ML VIAL SQ SCH ×4 (07:45→22:13)
[2018-02-04] MEDS: Budesonide/Formoterol 160/4.5 MDI IH SCH ×2 (10:12→22:33)
[2018-02-04] MEDS: Isosorbide MONOnitrate (24 HR) 30 MG TAB.ER.24H PO SCH (12:18)
[2018-02-04] MEDS: amLODIPine 5 MG TABLET PO SCH (12:18)
--- NOTE | 2018-02-04 13:44 | Nephrology Progress Note ---
Date of Encounter: 02/04/18 Time of Encounter: 13:40 - Assessment and Plan (1) ESRD (end stage renal disease) Current Visit: No Status: Chronic HD MWF. Renal vitamins. Renal dose medications. Renal diet. Additional dialysis and ultrafiltration as needed. Patient was seen on dialysis. Subjective Principal diagnosis: ESRD Interval history: The patient was seen on dialysis. She has no new complaints. She is is feeling slightly better. Objective - Vital Signs Vital signs: Vital Signs Temp Pulse Resp BP Pulse Ox 02/04/18 13:33 98.4 F 94 16 143/57 100 02/04/18 12:30 97.7 F 18 152/73 02/04/18 11:45 136/56 02/04/18 11:30 158/62 02/04/18 11:15 127/58 02/04/18 11:00 128/63 02/04/18 10:45 131/65 02/04/18 10:30 111/58 02/04/18 10:15 128/57 02/04/18 10:00 132/58 02/04/18 09:45 138/54 02/04/18 09:30 137/65 02/04/18 09:15 121/63 02/04/18 09:00 111/62 02/04/18 08:45 121/57 02/04/18 08:30 134/62 02/04/18 08:15 98.3 F 18 128/58 02/04/18 07:57 95 02/04/18 06:50 99.9 F H 100 16 126/63 15 02/04/18 05:05 98.5 F 85 17 121/75 98 02/04/18 01:25 98.3 F 82 18 108/54 100 02/03/18 19:47 20 95 02/03/18 18:59 100.1 F H 86 18 160/83 98 02/03/18 17:44 98.3 F 96 18 112/64 96 02/03/18 17:07 98.2 F 20 150/49 02/03/18 16:35 134/58 02/03/18 16:20 138/54 02/03/18 16:05 138/59 02/03/18 15:50 131/56 02/03/18 15:35 130/57 02/03/18 15:20 132/57 02/03/18 15:05 121/60 02/03/18 14:50 103/64 02/03/18 14:35 107/67 02/03/18 14:20 103/50 02/03/18 14:05 104/52 02/03/18 13:50 91/52 Intake and Output 02/03/18 02/04/18 02/04/18 23:59 07:59 15:59 Intake Total 420 / 420 600 / 600 Output Total 2600 / 2600 2600 / 2600 Balance -2180 / -2180 -1999 / Intake: IV Fluids 300 / 300 Zyvox Premix 600mg/300mL 600 mg 300 / 300 In 300 ml @ 150 mls/hr IVPB Q12HR NATALIE Rx#:[id number] Oral 120 / 120 0 / 0 Intake, Rinseback and Flushes 600 / 600 Output: Urine 0 / 0 0 / 0 Total Dialysis (HD) Output 2600 / 2600 2600 / 2600 Other: Meal [place]ariana [place] Stool Size Copious Stool Consistency formed Stool Color Brown # Voids 1 # Urine Diapers 1 # Bowel Movements 1 # Bowel Movement Diapers 1 Weight 107.9 kg Blood Glucose* 203 302 152 Hemodialysis Net Fluid Removed 1999 1999 (mL) - General Appearance General appearance: Present: well-developed, well-nourished, obese EENT: Present: ATNC Cardiology: Present: regular rate Gastrointestinal: Present: obese Musculoskeletal: Present: no cyanosis Psychiatric: Present: mood/affect appropriate - Lab 02/04/18 03:16 02/04/18 03:16 Most recent lab results ABG pH 7.48 pH Units (7.32-7.45) H 02/02/18 18:36 ABG pCO2 31 mmHg (35-45) L 02/02/18 18:36 ABG pO2 73 mmHg (85-104) L 02/02/18 18:36 ABG HCO3 23 mEq/L (21-27) 02/02/18 18:36 ABG O2 Saturation 96 % (95-98) 02/02/18 18:36 Calcium 8.1 mg/dL (8.6-10.3) L 02/04/18 03:16 Phosphorus 3.6 mg/dL (2.7-4.5) 02/02/18 17:35 Magnesium 1.5 mg/dL (1.6-2.6) L 02/03/18 04:00 Consult Discharge Plan - Plan Referrals: Tristen Quintana MD [Primary Care Provider] -
[2018-02-04] MEDS ORDERED: Ketorolac 30 MG/ML VIAL IVP ONE (14:52)
[2018-02-04] MEDS: Calcium Acetate 667 MG CAPSULE PO SCH (17:24)
--- NOTE | 2018-02-04 18:25 | Internal Med Progress Note ---
Date of Encounter: 02/04/18 Time of Encounter: 11:00 - Assessment and plan (1) Sepsis Current Visit: Yes Status: Acute Assessment and plan: Secondary to bacteremia; positive for gram-negative rods (final sensitivities pending) Patient's leukocytosis has resolved but has been febrile Will continue ertapenem due to patient's history of ESBL Qualifiers: Sepsis type: sepsis due to unspecified organism Qualified Code(s): A41.9 - Sepsis, unspecified organism (2) UTI (urinary tract infection) Current Visit: Yes Status: Acute Assessment and plan: Urine cultures positive for Escherichia coli; awaiting sensitivities Continue ertapenem as above Qualifiers: Urinary tract infection type: site unspecified Hematuria presence: without hematuria Qualified Code(s): N39.0 - Urinary tract infection, site not specified (3) Bacteremia Current Visit: Yes Status: Acute Assessment and plan: Patient found to have gram-negative rods secondary to the above Will continue ertapenem and await sensitivities (4) CKD stage 4 due to type 2 diabetes mellitus Current Visit: No Status: Acute Assessment and plan: Nephrology following and appreciate recommendations (5) Diabetes Current Visit: No Status: Chronic Assessment and plan: Continue basal and sliding scale insulin coverage. Qualifiers: Diabetes mellitus type: type 2 Diabetes mellitus extermination inspector insulin use: with extermination inspector use Diabetes mellitus complication status: with hyperglycemia Qualified Code(s): E11.65 - Type 2 diabetes mellitus with hyperglycemia; Z79.4 - ferry terminal agent (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 of insulin (6) Pressure ulcer of sacral region, stage 3 Current Visit: No Status: Acute Assessment and plan: Wound care following and appreciate recommendations (7) DVT prophylaxis Current Visit: No Status: Acute Assessment and plan: Heparin subcutaneously - Time Spent With Patient Total time spent is greater than 50% in coordination of care (as documented) at patient's floor/unit and/or counseling patient: - Subjective Interval history: Patient reports of atrial pain secondary to decubitus ulcer; wound care following Leukocytosis has resolved on IV antibiotics and patient has been afebrile - Constitutional Vitals: Temp Pulse Resp BP Pulse Ox 98.3 F 97 15 123/53 90 02/04/18 16:57 02/04/18 16:57 02/04/18 16:57 02/04/18 16:57 02/04/18 16:57 General appearance: Present: mild distress, A&O X 3, no acute distress, answers questions appropriately - Respiratory Respiratory exam: Present: CTAB. Absent: accessory muscle use, rales, rhonchi, wheezes - Cardiovascular Cardiovascular exam: Present: RRR, +S1, +S2. Absent: diastolic murmur, gallop, rubs, systolic murmur - Skin Skin exam: Present: erythema (Patient with decubitus sacral ulcer) Internal Medicine: Result - Labs CBC & Chem 7: 02/04/18 03:16 02/04/18 03:16 Labs: Short CBC 02/04/18 Range/Units 03:16 WBC 7.2 (4.3-11.1) K/mcL Hgb 8.5 L (11.5-15.4) g/dL Hct 26.3 L (35.3-44.9) % Plt Count 101 L (140-400) K/mcL Neutrophils # 5.3 (1.6-8.9) K/mcL BMP 02/04/18 03:16 Sodium 133 L Potassium 3.4 L Chloride 96 L Carbon Dioxide 29 BUN 29 H Creatinine 2.42 H Glucose 130 H Calcium 8.1 L - ABG Interpretation ABG results: ABG ABG pH 7.48 pH Units (7.32-7.45) H 02/02/18 18:36 ABG pCO2 31 mmHg (35-45) L 02/02/18 18:36 ABG pO2 73 mmHg (85-104) L 02/02/18 18:36 ABG O2 Saturation 96 % (95-98) 02/02/18 18:36 PT/INR, D-dimer PT 12.8 Seconds (9.4-12.1) H 02/02/18 20:44 Consult Discharge Plan - Plan Referrals: Tristen Quintana MD [Primary Care Provider] -
[2018-02-04] MEDS: Insulin DETEMIR 100 UNIT/ML X5UNITS SQ SCH (22:13)
[2018-02-05] MEDS: Ondansetron 4 MG/2 ML VIAL IVP PRN ×2 (01:06→16:59)
[2018-02-05] MEDS: Acetaminophen 325 MG TABLET PO PRN (03:08)
[2018-02-05] MEDS: *HR* Heparin 5,000 UNIT/ML VIAL SQ SCH ×2 (05:22→16:46)
[2018-02-05 08:32] LABS: Basophils % 0.5 %; Eosinophils # 0.2 K/mcL (0.0-0.6); Eosinophils % 2.8 %; Hematocrit 28.7 % (35.3-44.9); Hemoglobin 8.9 g/dL (11.5-15.4); Immature Granulocytes % 0.6 % (0-4); Lymphocytes # 0.9 K/mcL (0.6-4.6); Lymphocytes % 13.6 %; Mean Corpuscular Hemoglobin 27.9 pg (28.0-33.3); Mean Platelet Volume 11.2 fL (9.4-12.4); Monocytes # 0.5 K/mcL (0.0-1.3); Monocytes % 7.7 %; Neutrophils # 4.8 K/mcL (1.6-8.9); Platelet Count 124 K/mcL (140-400); Red Blood Count 3.19 M/mcL (3.82-4.97); Red Cell Distribution Width 15.7 % (11.5-14.5); Segmented Neutrophils % 74.8 %
[2018-02-05 08:33] LABS: Calcium 8.2 mg/dL (8.6-10.3); Potassium 3.9 mEq/L (3.5-5.1)
[2018-02-05] MEDS: Insulin LISPRO 300 UNITS/3 ML VIAL SQ SCH ×4 (09:24→21:34)
[2018-02-05] MEDS: Isosorbide MONOnitrate (24 HR) 30 MG TAB.ER.24H PO SCH (09:25)
[2018-02-05] MEDS: Calcium Acetate 667 MG CAPSULE PO SCH ×3 (09:25→16:47)
[2018-02-05] MEDS: Aspirin Enteric Coated 81 MG Tablet PO SCH (09:25)
[2018-02-05] MEDS: amLODIPine 5 MG TABLET PO SCH (09:25)
--- NOTE | 2018-02-05 10:32 | Nephrology Progress Note ---
Date of Encounter: 02/05/18 Time of Encounter: 10:31 - Assessment and Plan (1) ESRD (end stage renal disease) Current Visit: No Status: Chronic HD MWF. Renal vitamins. Renal dose medications. Renal diet. Additional dialysis and ultrafiltration as needed. Subjective Principal diagnosis: ESRD Interval history: The patient was seen. No new complaint. Objective - Vital Signs Vital signs: Vital Signs Temp Pulse Resp BP Pulse Ox 02/05/18 08:23 97.9 F 86 15 133/56 100 02/05/18 07:55 96 02/05/18 05:23 98.3 F 86 18 125/73 96 02/05/18 00:36 98.3 F 87 18 122/54 99 02/04/18 22:33 18 96 02/04/18 20:42 97.8 F 77 20 114/54 100 02/04/18 16:57 98.3 F 97 15 123/53 90 02/04/18 13:33 98.4 F 94 16 143/57 100 02/04/18 12:30 97.7 F 18 152/73 02/04/18 11:45 136/56 02/04/18 11:30 158/62 02/04/18 11:15 127/58 02/04/18 11:00 128/63 02/04/18 10:45 131/65 Intake and Output 02/04/18 02/05/18 02/05/18 23:59 07:59 15:59 Intake Total 460 / 460 180 / 180 Balance 460 / 460 180 / 180 Intake: IV Fluids 100 / 100 INVanz 500 MG In 0.9 % Sodium 100 / 100 Chloride 100 ML @ 100 mls/hr IVPB DAILY@1800 [facility] Rx#: [id number] Oral 360 / 360 180 / 180 Other: Meal Pizza and cheese puffs Breakfast Percent of Meal Consumed 80% 15% Stool Size Small Stool Consistency formed Stool Characteristics Normal for Patient Stool Color Brown # Voids 1 Blood Glucose* 285 304 194 - General Appearance General appearance: Present: well-developed, well-nourished, obese EENT: Present: ATNC Cardiology: Present: regular rate Psychiatric: Present: mood/affect appropriate - Lab 02/05/18 07:55 02/05/18 07:55 Most recent lab results ABG pH 7.48 pH Units (7.32-7.45) H 02/02/18 18:36 ABG pCO2 31 mmHg (35-45) L 02/02/18 18:36 ABG pO2 73 mmHg (85-104) L 02/02/18 18:36 ABG HCO3 23 mEq/L (21-27) 02/02/18 18:36 ABG O2 Saturation 96 % (95-98) 02/02/18 18:36 Calcium 8.2 mg/dL (8.6-10.3) L 02/05/18 07:55 Phosphorus 3.6 mg/dL (2.7-4.5) 02/02/18 17:35 Magnesium 1.5 mg/dL (1.6-2.6) L 02/03/18 04:00 Consult Discharge Plan - Plan Referrals: Tristen Quintana MD [Primary Care Provider] -
[2018-02-05] MEDS: Budesonide/Formoterol 160/4.5 MDI IH SCH ×2 (11:08→20:25)
--- NOTE | 2018-02-05 17:05 | Internal Med Progress Note ---
Date of Encounter: 02/05/18 Time of Encounter: 11:00 - Assessment and plan (1) Sepsis Current Visit: Yes Status: Acute Assessment and plan: Secondary to bacteremia; positive for gram-negative rods (final sensitivities pending) Patient's leukocytosis has resolved but has been febrile 02/05/18: Patient found to be bacteremic with Escherichia coli ESBL in addition to E coli ESBL in the urine Leukocytosis has resolved on IV antibiotics and patient has been afebrile Will continue day 3 of ertapenem Qualifiers: Sepsis type: Escherichia coli Qualified Code(s): A41.51 - Sepsis due to Escherichia coli [E. coli] (2) UTI (urinary tract infection) Current Visit: Yes Status: Acute Assessment and plan: Urine cultures positive for Escherichia coli; awaiting sensitivities 02/05/18: Patient found to be bacteremic with Escherichia coli ESBL in the urine Leukocytosis has resolved on IV antibiotics and patient has been afebrile Will continue day 3 of ertapenem Qualifiers: Urinary tract infection type: site unspecified Hematuria presence: without hematuria Qualified Code(s): N39.0 - Urinary tract infection, site not specified (3) Bacteremia Current Visit: Yes Status: Acute Assessment and plan: Patient found to have gram-negative rods secondary to the above 02/05/18: Patient found to be bacteremic with Escherichia coli ESBL Leukocytosis has resolved on IV antibiotics and patient has been afebrile Will continue day 3 of ertapenem (4) Pressure ulcer of sacral region, stage 3 Current Visit: No Status: Acute Assessment and plan: Patient with improvement in sacral pain Wound care following and appreciate recommendations (5) CKD stage 4 due to type 2 diabetes mellitus Current Visit: No Status: Acute Assessment and plan: Nephrology following for hemodialysis management and appreciate recommendations (6) Diabetes Current Visit: No Status: Chronic Assessment and plan: Continue basal and sliding scale insulin coverage. 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 Diabetes mellitus complication status: with hyperglycemia Qualified Code(s): E11.65 - Type 2 diabetes mellitus with hyperglycemia; Z79.4 - prison (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 of insulin (7) DVT prophylaxis Current Visit: No Status: Acute Assessment and plan: Heparin subcutaneously - Time Spent With Patient Total time spent is greater than 50% in coordination of care (as documented) at patient's floor/unit and/or counseling patient: - Subjective Interval history: Patient with sepsis secondary to ESBL Escherichia coli in urine in addition to bacteremia with ESBL Escherichia coli Leukocytosis has resolved on IV antibiotics and patient has been afebrile Patient with improvement in sacral pain secondary to decubitus ulcer; wound care following - Constitutional Vitals: Temp Pulse Resp BP Pulse Ox 98.0 F 87 16 143/65 98 02/05/18 15:22 02/05/18 15:22 02/05/18 15:22 02/05/18 15:22 02/05/18 15:22 General appearance: Present: mild distress, A&O X 3, no acute distress, answers questions appropriately - Respiratory Respiratory exam: Present: CTAB. Absent: accessory muscle use, rales, rhonchi, wheezes - Cardiovascular Cardiovascular exam: Present: RRR, +S1, +S2. Absent: diastolic murmur, gallop, rubs, systolic murmur Internal Medicine: Result - Labs CBC & Chem 7: 02/05/18 07:55 02/05/18 07:55 Labs: Short CBC 02/05/18 Range/Units 07:55 WBC 6.5 (4.3-11.1) K/mcL Hgb 8.9 L (11.5-15.4) g/dL Hct 28.7 L (35.3-44.9) % Plt Count 124 L (140-400) K/mcL Neutrophils # 4.8 (1.6-8.9) K/mcL BMP 02/05/18 07:55 Sodium 131 L Potassium 3.9 Chloride 94 L Carbon Dioxide 30 H BUN 20 Creatinine 2.01 H Glucose 175 H Calcium 8.2 L - ABG Interpretation ABG results: ABG ABG pH 7.48 pH Units (7.32-7.45) H 02/02/18 18:36 ABG pCO2 31 mmHg (35-45) L 02/02/18 18:36 ABG pO2 73 mmHg (85-104) L 02/02/18 18:36 ABG O2 Saturation 96 % (95-98) 02/02/18 18:36 PT/INR, D-dimer PT 12.8 Seconds (9.4-12.1) H 02/02/18 20:44 Consult Discharge Plan - Plan Referrals: Tristen Quintana MD [Primary Care Provider] -
--- NOTE | 2018-02-05 17:12 | Electrocardiograph Report ---
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
[2018-02-05] MEDS: Insulin DETEMIR 100 UNIT/ML X5UNITS SQ SCH (21:34)
[2018-02-06] MEDS: *HR* Heparin 5,000 UNIT/ML VIAL SQ SCH ×2 (06:06→17:39)
[2018-02-06] MEDS: Budesonide/Formoterol 160/4.5 MDI IH SCH ×2 (07:34→21:02)
[2018-02-06] MEDS: Aspirin Enteric Coated 81 MG Tablet PO SCH (07:56)
[2018-02-06] MEDS: Calcium Acetate 667 MG CAPSULE PO SCH ×3 (07:56→17:39)
[2018-02-06] MEDS: Isosorbide MONOnitrate (24 HR) 30 MG TAB.ER.24H PO SCH (07:56)
[2018-02-06] MEDS: Acetaminophen 325 MG TABLET PO PRN (07:56)
[2018-02-06] MEDS: amLODIPine 5 MG TABLET PO SCH (07:56)
[2018-02-06] MEDS: Insulin LISPRO 300 UNITS/3 ML VIAL SQ SCH ×4 (07:57→20:31)
[2018-02-06 08:34] LABS: Basophils % 0.5 %; Eosinophils # 0.2 K/mcL (0.0-0.6); Eosinophils % 3.4 %; Hematocrit 28.3 % (35.3-44.9); Hemoglobin 8.7 g/dL (11.5-15.4); Immature Granulocytes % 0.3 % (0-4); Lymphocytes # 1.1 K/mcL (0.6-4.6); Lymphocytes % 19.1 %; Mean Corpuscular HGB Conc 30.7 g/dL (31.6-35.5); Mean Corpuscular Hemoglobin 27.5 pg (28.0-33.3); Mean Corpuscular Volume 89.6 fL (83.0-100.0); Mean Platelet Volume 10.9 fL (9.4-12.4); Monocytes # 0.5 K/mcL (0.0-1.3); Monocytes % 8.8 %; Platelet Count 137 K/mcL (140-400); Red Blood Count 3.16 M/mcL (3.82-4.97); Red Cell Distribution Width 15.4 % (11.5-14.5); Segmented Neutrophils % 67.9 %
[2018-02-06 08:42] LABS: Calcium 8.5 mg/dL (8.6-10.3); Potassium 4.5 mEq/L (3.5-5.1)
--- NOTE | 2018-02-06 09:54 | Nephrology Progress Note ---
Date of Encounter: 02/06/18 Time of Encounter: 09:54 - Assessment and Plan (1) ESRD (end stage renal disease) Current Visit: No Status: Chronic HD MWF. Renal vitamins. Renal dose medications. Renal diet. Additional dialysis and ultrafiltration as needed. Subjective Principal diagnosis: ESRD Interval history: The patient was seen. No new complaint. Objective - Vital Signs Vital signs: Vital Signs Temp Pulse Resp BP Pulse Ox 02/06/18 08:03 100 02/06/18 06:56 98.8 F 97 15 125/48 100 02/06/18 05:50 97.9 F 97 18 134/53 100 02/06/18 00:25 98.0 F 92 18 154/69 97 02/05/18 20:25 17 99 02/05/18 19:17 98.2 F 94 18 151/67 100 02/05/18 15:22 98.0 F 87 16 143/65 98 02/05/18 11:09 15 100 02/05/18 10:51 98.0 F 85 15 108/59 100 Intake and Output 02/05/18 02/06/18 02/06/18 23:59 07:59 15:59 Intake Total 640 / 640 Output Total 0 / 0 Balance 640 / 640 Intake: Oral 640 / 640 Output: Urine 0 / 0 Other: Meal crackers and peanut butter cup Percent of Meal Consumed 100% Weight 110 kg Blood Glucose* 291 220 Patient Weight 02/06/18 23:59 Weight 110 kg - General Appearance General appearance: Present: well-developed, well-nourished, obese Neurologic: Present: alert and oriented x3 Psychiatric: Present: mood/affect appropriate - Lab 02/06/18 07:51 02/06/18 07:51 Most recent lab results ABG pH 7.48 pH Units (7.32-7.45) H 02/02/18 18:36 ABG pCO2 31 mmHg (35-45) L 02/02/18 18:36 ABG pO2 73 mmHg (85-104) L 02/02/18 18:36 ABG HCO3 23 mEq/L (21-27) 02/02/18 18:36 ABG O2 Saturation 96 % (95-98) 02/02/18 18:36 Calcium 8.5 mg/dL (8.6-10.3) L 02/06/18 07:51 Phosphorus 3.6 mg/dL (2.7-4.5) 02/02/18 17:35 Magnesium 1.5 mg/dL (1.6-2.6) L 02/03/18 04:00 Consult Discharge Plan - Plan Referrals: Tristen Quintana MD [Primary Care Provider] -
--- NOTE | 2018-02-06 18:17 | Internal Med Progress Note ---
Date of Encounter: 02/06/18 Time of Encounter: 11:00 - Assessment and plan (1) Sepsis Current Visit: Yes Status: Acute Assessment and plan: Secondary to bacteremia; positive for gram-negative rods (final sensitivities pending) Patient's leukocytosis has resolved but has been febrile 02/05/18: Patient found to be bacteremic with Escherichia coli ESBL in addition to E coli ESBL in the urine Leukocytosis has resolved on IV antibiotics and patient has been afebrile Will continue day 3 of ertapenem 02/06/18: Patient continues to be afebrile without leukocytosis but continues to complain of some abdominal discomfort secondary to UTI Will continue day 4 of ertapenem Qualifiers: Sepsis type: Escherichia coli Qualified Code(s): A41.51 - Sepsis due to Escherichia coli [E. coli] (2) UTI (urinary tract infection) Current Visit: Yes Status: Acute Assessment and plan: Urine cultures positive for Escherichia coli; awaiting sensitivities 02/05/18: Patient found to be bacteremic with Escherichia coli ESBL in the urine Leukocytosis has resolved on IV antibiotics and patient has been afebrile Will continue day 3 of ertapenem 02/06/18 Patient still with some abdominal discomfort as above secondary to UTI Continue day 4 of ertapenem and consult ID due to recurrent ESBL infections Qualifiers: Urinary tract infection type: site unspecified Hematuria presence: without hematuria Qualified Code(s): N39.0 - Urinary tract infection, site not specified (3) Bacteremia Current Visit: Yes Status: Acute Assessment and plan: Patient found to have gram-negative rods secondary to the above 02/05/18: Patient found to be bacteremic with Escherichia coli ESBL Leukocytosis has resolved on IV antibiotics and patient has been afebrile Will continue day 3 of ertapenem 02/06/18: Will order repeat blood cultures 02/07/18 (4) Pressure ulcer of sacral region, stage 3 Current Visit: No Status: Acute Assessment and plan: Patient with improvement in sacral pain Wound care following and appreciate recommendations (5) CKD stage 4 due to type 2 diabetes mellitus Current Visit: No Status: Acute Assessment and plan: Nephrology following for hemodialysis management and appreciate recommendations (6) Diabetes Current Visit: No Status: Chronic Assessment and plan: Continue basal and sliding scale insulin coverage. 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 Diabetes mellitus complication status: with hyperglycemia Qualified Code(s): E11.65 - Type 2 diabetes mellitus with hyperglycemia; Z79.4 - custodial (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 of insulin (7) DVT prophylaxis Current Visit: No Status: Acute Assessment and plan: Heparin subcutaneously - Time Spent With Patient Total time spent is greater than 50% in coordination of care (as documented) at patient's floor/unit and/or counseling patient: - Subjective Interval history: Patient with sepsis secondary to ESBL Escherichia coli in urine in addition to bacteremia with ESBL Escherichia coli Leukocytosis has resolved on IV antibiotics and patient has been afebrile Patient with improvement in sacral pain secondary to decubitus ulcer; wound care following She still complains of some abdominal discomfort related to UTI - Constitutional Vitals: Temp Pulse Resp BP Pulse Ox 97.9 F 85 14 142/65 100 02/06/18 17:29 02/06/18 17:29 02/06/18 17:29 02/06/18 17:29 02/06/18 17:29 General appearance: Present: mild distress, A&O X 3, no acute distress, answers questions appropriately - Respiratory Respiratory exam: Present: CTAB. Absent: accessory muscle use, rales, rhonchi, wheezes - Cardiovascular Cardiovascular exam: Present: RRR, +S1, +S2. Absent: diastolic murmur, gallop, rubs, systolic murmur Internal Medicine: Result - Labs CBC & Chem 7: 02/06/18 07:51 02/06/18 07:51 Labs: Short CBC 02/06/18 Range/Units 07:51 WBC 5.9 (4.3-11.1) K/mcL Hgb 8.7 L (11.5-15.4) g/dL Hct 28.3 L (35.3-44.9) % Plt Count 137 L (140-400) K/mcL Neutrophils # 4.0 (1.6-8.9) K/mcL BMP 02/06/18 07:51 Sodium 133 L Potassium 4.5 Chloride 96 L Carbon Dioxide 28 BUN 28 H Creatinine 2.32 H Glucose 210 H Calcium 8.5 L - ABG Interpretation ABG results: ABG ABG pH 7.48 pH Units (7.32-7.45) H 02/02/18 18:36 ABG pCO2 31 mmHg (35-45) L 02/02/18 18:36 ABG pO2 73 mmHg (85-104) L 02/02/18 18:36 ABG O2 Saturation 96 % (95-98) 02/02/18 18:36 PT/INR, D-dimer PT 12.8 Seconds (9.4-12.1) H 02/02/18 20:44 Consult Discharge Plan - Plan Referrals: Tristen Quintana MD [Primary Care Provider] -
[2018-02-06] MEDS: Insulin DETEMIR 100 UNIT/ML X5UNITS SQ SCH (20:32)
[2018-02-07 04:28] LABS: Basophils % 0.5 %; Eosinophils # 0.2 K/mcL (0.0-0.6); Eosinophils % 3.8 %; Hemoglobin 8.6 g/dL (11.5-15.4); Immature Granulocytes % 0.9 % (0-4); Lymphocytes # 1.3 K/mcL (0.6-4.6); Lymphocytes % 22.6 %; Mean Corpuscular HGB Conc 30.7 g/dL (31.6-35.5); Mean Corpuscular Hemoglobin 27.3 pg (28.0-33.3); Mean Corpuscular Volume 88.9 fL (83.0-100.0); Monocytes # 0.5 K/mcL (0.0-1.3); Monocytes % 8.8 %; Neutrophils # 3.5 K/mcL (1.6-8.9); Platelet Count 140 K/mcL (140-400); Red Blood Count 3.15 M/mcL (3.82-4.97); Red Cell Distribution Width 15.4 % (11.5-14.5); Segmented Neutrophils % 63.4 %
[2018-02-07 04:39] LABS: Calcium 8.8 mg/dL (8.6-10.3); Potassium 4.7 mEq/L (3.5-5.1)
[2018-02-07] MEDS: *HR* Heparin 5,000 UNIT/ML VIAL SQ SCH ×2 (05:19→17:07)
[2018-02-07] MEDS ORDERED: 0.9 % Sodium Chloride 1,000 ML ONE (07:03)
[2018-02-07] MEDS: Aspirin Enteric Coated 81 MG Tablet PO SCH (07:15)
[2018-02-07] MEDS: Calcium Acetate 667 MG CAPSULE PO SCH ×3 (07:15→17:07)
[2018-02-07] MEDS: Insulin LISPRO 300 UNITS/3 ML VIAL SQ SCH ×4 (07:16→21:02)
[2018-02-07] MEDS: Budesonide/Formoterol 160/4.5 MDI IH SCH ×2 (07:38→20:07)
[2018-02-07] MEDS ORDERED: 0.9 % Sodium Chloride 250 ML IVC PRN (07:48)
[2018-02-07] MEDS ORDERED: 0.9 % Sodium Chloride 1,000 ML PRIME SCH (08:00)
--- NOTE | 2018-02-07 08:34 | Infectious Disease Consult ---
Date of Encounter: 02/07/18 Time of Encounter: 08:13 Assessment and Plan (1) Sepsis Status: Resolved Assessment and plan: fever, tachycardia, leukocytosis upon admisson. causative organism: E.Coli ESBL 02/02 blood culture positive for E. Coli ESBL S: ertapenem, Meropenem, Tigercycline 02/02 urine culture positive for E. Coli ESBL, kaylan glabrata. Creatinine clearance: 30 Plan: Ertapenem day 5 repeat BC x2 now consider bladder irrigation Qualifiers: Sepsis type: sepsis due to unspecified organism Qualified Code(s): A41.9 - Sepsis, unspecified organism (2) Bacteremia Status: Acute Assessment and plan: plan as above (3) UTI (urinary tract infection) Status: Chronic Assessment and plan: urine culture positive for E.Coli ESBL, cadida glabrata. past cultures positive for E. Coli ESBL, enterococcus, VRE, E. COli MDRO, kaylan tropicalis. plan as above Qualifiers: Urinary tract infection type: acute cystitis Hematuria presence: with hematuria Qualified Code(s): N30.01 - Acute cystitis with hematuria (4) Sacral pressure ulcer Status: Acute Qualifiers: Pressure ulcer stage: unspecified pressure ulcer stage Qualified Code(s): L89.159 - Pressure ulcer of sacral region, unspecified stage (5) ESRD (end stage renal disease) Status: Chronic Assessment and plan: Per nephrology (6) Diabetes Status: Chronic Assessment and plan: Management per primary team Qualifiers: Diabetes mellitus type: type 2 Diabetes mellitus alf insulin use: with watermelon inspector use Diabetes mellitus complication status: with hyperglycemia Qualified Code(s): E11.65 - Type 2 diabetes mellitus with hyperglycemia; Z79.4 - jail (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 of insulin Infectious Disease HPI - Data of Consult Patient: known to practice within the last 3 years Consult date: 02/07/18 Requesting Physician: Angelo Berkowitz Primary Care Provider: Tristen Quintana MD - Consult Narrative Reason for consult: Recurrent ESBL infections History of present illness: Ms. Riley is a 62 year old female who arrived to the emergency room on 02/03/18 with chief complaint of fevers and weakness. ID was consult it on 02/07/18 for recurrent ESBL infections. Past medical history includes COPD, CAD, CVA, DVT, diabetes, ESRD, GERD, G.I. bleed, hyperlipidemia, hypertension, PAD. Patient states that a few days prior to admission, she was having symptoms of nausea, fevers, chills, nonproductive cough. She denied having episodes of diarrhea, chest pain, shortness of breath. Upon admission vitals breath follows: temperature 101.2, heart rate 105, respirations 20, blood pressure 126/77, O2 saturation 96% on room air. Labs were significant for WBC 12.1, hemoglobin 9.2, platelets 111, sodium 131, elevated troponin of 0.08. Lactic acid 0.7. UA significant for moderate blood , trace ketones, large leukocyte esterase, numerous WBCs. Serology positive for Enterobacteraciae, E.Coli. Chest x-ray showed mild vascular congestion, CT was unremarkable, bilateral knee x-rays unremarkable. Patient was admitted for further workup of sepsis. Upon admission, suspected source of infection was UTI. CT of the abdomen and pelvis showed new moderate right pelvocaliectasis, with gas fluid level in the upper collecting system, gas and the ureter and urinary bladder, knew Brian ureteral and right. Colic inflammatory stranding. Patient was initially started on vancomycin and Zosyn. Blood cultures X2 from 02/02/18 positive for E. coli ESBL, S: Ertapenem, Meropenem, Tigercycline. Urine culture positive for ESB L, yeast species. Past urine cultures have been positive for E Coli ESBL, enterococcous, VRE, kaylan, Klebsiella MDRO, proteus ESBL. Based on past cultures, antibiotics were changed to Linezolid and Ertapenem based on sensitivities. Today, patient states she feels very tired because she has not been able to sleep for the past 2 days. She denies nausea, vomiting, diarrhea, fever, chills , chest pain, shortness of breath. CC: Angelo Berkowitz Past Med Surg Social Fam HX - Past Medical History Medical history: COPD, coronary artery disease, CVA, DVT, diabetes, dialysis, GERD, GI bleed, hyperlipidemia, hypertension, peripheral artery disease, other Psychiatric history: anxiety, depression, schizophrenia, previous psychiatric hospitalization - Past Surgical History Surgical History: angioplasty/stent, appendectomy, cholecystectomy, coronary bypass (CABG), hysterectomy, knee replacement, other, IVC filter - Social History Smoking Status: Current every day smoker Smokeless Tobacco Status: No Alcohol use: none Drug use: none - Family History Father Family Member Ethnicity: Non- Living Status: Hx Family Cardiac Disorders: Yes (CAD, NE) Hx Family Cancer: Yes (Polycythemia) Hx Family Endocrine Disorder: Yes (DM) Mother Family Member Ethnicity: Non- Living Status: Still Living Hx Family Cardiac Disorders: Yes Hx Family Respiratory Disorders: Yes (End stage COPD) Brother Adopted: No Family Member Ethnicity: Non- Living Status: Still Living Hx Family Cardiac Disorders: No Hx Family Respiratory Disorders: No Hx Family Cancer: No Hx Family GI Disorders: No Hx Family Endocrine Disorder: No Hx Family Neuromuscular Disorders: No Hx Family Neurologic Disorders: No Hx Family HEENT Disorders: No Hx Family Autoimmune Disorders: No Sister Adopted: No Family Member Ethnicity: Non- Living Status: Still Living Hx Family Cardiac Disorders: Yes Hx Family Respiratory Disorders: No Hx Family Cancer: No Hx Family GI Disorders: No Hx Family Endocrine Disorder: Yes Hx Family Neuromuscular Disorders: No Hx Family Neurologic Disorders: No Hx Family HEENT Disorders: No Hx Family Autoimmune Disorders: No Infectious Disease-CN:Meds Omeprazole [PriLOSEC] 20 mg PO DAILY 05/11/15 [History] Colestipol HCl [Colestid] 1 gm PO BID 06/12/15 [History] Carvedilol 12.5 mg PO BID 10/28/15 [History] Calcium Acetate [Phos-LO] 1,334 mg PO TIDWM 09/06/16 [History] Folic Acid/Vit Bcomp,C [Renal Vitamin Tablet] 0.8 mg PO DAILY 04/15/17 [History] ARIPiprazole [Abilify] 10 mg PO DAILY 09/13/17 [History] Aspirin Enteric Coated [Aspirin EC] 81 mg PO DAILY 09/13/17 [History] Budesonide/Formoterol 160/4.5 [Symbicort 160/4.5] 2 puff IH BIDR 09/13/17 [ History] Cholecalciferol (Vitamin D3) [Vitamin D3] 50,000 unit PO TH 09/13/17 [History] OxyCODONE/APAP 10/325 [Percocet 10/325 MG] 1 tab PO Q6H PRN 09/13/17 [History] Sennosides [Senna] 8.6 mg PO BID PRN 09/13/17 [History] Sevelamer [Renvela] 800 mg PO TID 09/13/17 [History] Albuterol Neb [AccuNeb] 0.63 mg IH Q6H PRN 10/18/17 [History] Gabapentin [Neurontin] 100 mg PO TID #60 capsule 10/21/17 [Rx] Collagenase Oint [Santyl] 1 appl TP DAILY 11/11/17 [History] Oxybutynin [Ditropan] 5 mg PO TID 11/11/17 [History] Isosorbide MONOnitrate (24 HR) [Imdur] 30 mg PO DAILY #30 tab.er.24h 11/19/17 [ Rx] Insulin LISPRO [Humalog Kwikpen U-100] 0 unit SQ ACHS 11/25/17 [History] Acetaminophen [Tylenol] 650 mg PO Q6HR PRN tablet 12/14/17 [Rx] Amitriptyline HCl 100 mg PO HS 12/22/17 [History] Morphine Sulfate SR (12 HR) [MS Contin] 30 mg PO Q12HR 12/22/17 [History] Rosuvastatin [Crestor] 10 mg PO HS 12/22/17 [History] amLODIPine [Norvasc] 5 mg PO DAILY 12/30/17 [History] Insulin Glargine,Hum.rec.anlog [Basaglar Kwikpen U-100] 60 unit SQ BID 01/06/18 [History] metOLazone [Zaroxolyn] 2.5 mg PO DAILY 01/06/18 [History] Metoclopramide [Reglan] 5 mg PO TIDAC #15 ud.liq 01/13/18 [Rx] Clopidogrel [Plavix] 75 mg PO DAILY 02/03/18 [History] 3 Allergy/AdvReac Type Severity Reaction Status Date / Time No Known Allergies Allergy Verified 02/03/18 12:01 All systems: reviewed and no additional remarkable complaints except as stated Exam - Constitutional Vitals: Temp Pulse Resp BP Pulse Ox 98.4 F 87 17 116/60 98 02/07/18 06:57 02/07/18 06:57 02/07/18 07:39 02/07/18 06:57 02/07/18 07:39 General appearance: cooperative, morbidly obese, no acute distress - Respiratory Respiratory exam: Present: decreased breath sounds Additional comments: Inspiratory wheezing present. - Cardiovascular Cardiovascular exam: Present: RRR, +S1, +S2 - GI/Abdominal GI/Abdominal exam: Present: distended, normal bowel sounds, soft, tenderness ( Tenderness present in the lower abdominal area.) - Extremities Exam Additional comments: Various areas of bruising present in the bilateral upper extremities. Bilateral lower extremity venous stasis and +1 pitting edema present. - Neurological Exam Neurological exam: Present: alert, oriented X3 Infectious Disease CN: Results - Labs CBC & Chem 7: 02/07/18 04:00 02/07/18 04:00 Consult Discharge Plan - Plan Referrals: Tristen Quintana MD [Primary Care Provider] - - Attending Attestation I examined this patient and my medical decision-making was reviewed with the Resident Physician. I agree with the documented findings, disposition and treatment plan as described except to the extent set forth below. I examined this patient and my medical decision-making was reviewed with the Resident Physician. I agree with the documented findings, disposition and treatment plan as described except to the extent set forth below. This is an addendum to original report dictated by resident physician. Please refer to residents note for full details. Patient is a 62-year-old woman who is well-known to our service who was admitted to [facility] on February 02 with weakness and fever, we are consulted on February 07 for recurrent ESBL Escherichia coli bacteremia. Ms. Riley 62yo F past medical hx of COPD, CAD, CABG, Stents, DM, DVTs with current IVC filter, HTN, ESRD on dialysis since 05/26, recurrent UTI with MDR organisms who was recently seen by us at the beginning of January for RSV pneumonia, UTI with ESBL and VRE. At that time patient was treated with ertapenem and ampicillin for 14 days total. Patient states that a few days prior to admission, she was having symptoms of nausea, fevers, chills, nonproductive cough. She denied having episodes of diarrhea, chest pain, shortness of breath. Since admission patient has been septic with a MAXIMUM TEMPERATURE of 11.2, tachycardia and a WBC of 12.1 but no bands. No lactic acid was checked. Cultures grew Escherichia coli ESBL 2 out of 2 sets from the blood and urine culture grew Escherichia coli ESBL and Kaylan glabrata. A CT of the abdomen pelvis with no IV or oral contrast showed appropriate right nephroureteral stent positioning. New moderate right pelvocaliectasis with gas fluid level in the upper collecting system. New periureteral and right pericolic gutter inflammatory stranding. Right retroperitoneal lymphadenopathy is not substantially changed presumably reactive. Patient was started on ertapenem and we were consulted to evaluate the patient and make further recommendations. Recommendations: Repeat blood cultures x 2 now Will consider bladder irrigation Urology to evaluate Continue ertapenem (dose adjust based on dialysis) Monitor labs and for drug toxicity
[2018-02-07] MEDS: amLODIPine 5 MG TABLET PO SCH (13:11)
[2018-02-07] MEDS: Isosorbide MONOnitrate (24 HR) 30 MG TAB.ER.24H PO SCH (13:12)
--- NOTE | 2018-02-07 18:45 | Internal Med Progress Note ---
Date of Encounter: 02/07/18 Time of Encounter: 11:00 - Assessment and plan (1) Sepsis Current Visit: Yes Status: Acute Assessment and plan: Secondary to bacteremia; positive for gram-negative rods (final sensitivities pending) Patient's leukocytosis has resolved but has been febrile 02/05/18: Patient found to be bacteremic with Escherichia coli ESBL in addition to E coli ESBL in the urine Leukocytosis has resolved on IV antibiotics and patient has been afebrile Will continue day 3 of ertapenem 02/06/18: Patient continues to be afebrile without leukocytosis but continues to complain of some abdominal discomfort secondary to UTI Will continue day 4 of ertapenem 02/07/18: Continuing day 5 of ertapenem Infectious disease consulted due to recurrent ESBL infections with Escherichia coli and appreciate recommendations Qualifiers: Sepsis type: Escherichia coli Qualified Code(s): A41.51 - Sepsis due to Escherichia coli [E. coli] (2) UTI (urinary tract infection) Current Visit: Yes Status: Acute Assessment and plan: Urine cultures positive for Escherichia coli; awaiting sensitivities 02/05/18: Patient found to be bacteremic with Escherichia coli ESBL in the urine Leukocytosis has resolved on IV antibiotics and patient has been afebrile Will continue day 3 of ertapenem 02/06/18 Patient still with some abdominal discomfort as above secondary to UTI Continue day 4 of ertapenem and consult ID due to recurrent ESBL infections 02/07/18: Management as above Qualifiers: Urinary tract infection type: site unspecified Hematuria presence: without hematuria Qualified Code(s): N39.0 - Urinary tract infection, site not specified (3) Bacteremia Current Visit: Yes Status: Acute Assessment and plan: Patient found to have gram-negative rods secondary to the above 02/05/18: Patient found to be bacteremic with Escherichia coli ESBL Leukocytosis has resolved on IV antibiotics and patient has been afebrile Will continue day 3 of ertapenem 02/06/18: Will order repeat blood cultures 02/07/18 02/07/18: Repeat blood cultures ordered today (4) Pressure ulcer of sacral region, stage 3 Current Visit: No Status: Acute Assessment and plan: Patient with improvement in sacral pain Wound care following and appreciate recommendations (5) CKD stage 4 due to type 2 diabetes mellitus Current Visit: No Status: Acute Assessment and plan: Nephrology following for hemodialysis management and appreciate recommendations (6) Diabetes Current Visit: No Status: Chronic Assessment and plan: Continue basal and sliding scale insulin coverage. 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 (7) DVT prophylaxis Current Visit: No Status: Acute Assessment and plan: Heparin subcutaneously - Time Spent With Patient Total time spent is greater than 50% in coordination of care (as documented) at patient's floor/unit and/or counseling patient: - Subjective Interval history: Patient with sepsis secondary to ESBL Escherichia coli in urine in addition to bacteremia with ESBL Escherichia coli Leukocytosis has resolved on IV ertapenem and patient has been afebrile; infectious disease following Patient with improvement in sacral pain secondary to decubitus ulcer; wound care following - Constitutional Vitals: Temp Pulse Resp BP Pulse Ox 98.8 F 80 20 112/68 97 02/07/18 16:53 02/07/18 16:53 02/07/18 16:53 02/07/18 16:53 02/07/18 16:53 General appearance: Present: mild distress, A&O X 3, no acute distress, answers questions appropriately - Respiratory Respiratory exam: Present: CTAB. Absent: accessory muscle use, rales, rhonchi, wheezes - Cardiovascular Cardiovascular exam: Present: RRR, +S1, +S2. Absent: diastolic murmur, gallop, rubs, systolic murmur Internal Medicine: Result - Labs CBC & Chem 7: 02/07/18 04:00 02/07/18 04:00 Labs: Short CBC 02/07/18 Range/Units 04:00 WBC 5.5 (4.3-11.1) K/mcL Hgb 8.6 L (11.5-15.4) g/dL Hct 28.0 L (35.3-44.9) % Plt Count 140 (140-400) K/mcL Neutrophils # 3.5 (1.6-8.9) K/mcL BMP 02/07/18 04:00 Sodium 131 L Potassium 4.7 Chloride 96 L Carbon Dioxide 28 BUN 35 H Creatinine 2.51 H Glucose 198 H Calcium 8.8 - ABG Interpretation ABG results: ABG ABG pH 7.48 pH Units (7.32-7.45) H 02/02/18 18:36 ABG pCO2 31 mmHg (35-45) L 02/02/18 18:36 ABG pO2 73 mmHg (85-104) L 02/02/18 18:36 ABG O2 Saturation 96 % (95-98) 02/02/18 18:36 PT/INR, D-dimer PT 12.8 Seconds (9.4-12.1) H 02/02/18 20:44 - Impressions Impressions Abdomen/Pelvis CT 02/03/18 01:42 IMPRESSION: Appropriate right nephroureteral stent positioning. New moderate right pelvocaliectasis with gas fluid level in the upper collecting system, gas in the ureter and urinary bladder-presumably postprocedural however this could potentially be related to urosepsis. New periureteral and right pericolic gutter inflammatory stranding. Right retroperitoneal lymphadenopathy is not substantially changed, presumably reactive. Hepatosplenomegaly. Small right pleural effusion. D/ / 02/03/2018 08:03:30 Hebert Cherry / [place] Interpreting Provider: Hebert Cherry Consult Discharge Plan - Plan Referrals: Tristen Quintana MD [Primary Care Provider] -
[2018-02-07] MEDS: Insulin DETEMIR 100 UNIT/ML X5UNITS SQ SCH (21:02)
--- NOTE | 2018-02-07 22:15 | Nephrology Progress Note ---
Date of Encounter: 02/07/18 Time of Encounter: 10:00 - Assessment and Plan (1) ESRD (end stage renal disease) Current Visit: No Status: Chronic HD MWF. Renal vitamins. Renal dose medications. Renal diet. Additional dialysis and ultrafiltration as needed. Patient seen on dialysis. Subjective Principal diagnosis: ESRD Interval history: The patient was seen on dialysis. No new complaint. Objective - Vital Signs Vital signs: Vital Signs Temp Pulse Resp BP Pulse Ox 02/07/18 21:13 99 02/07/18 20:07 18 100 02/07/18 19:22 98.0 F 95 16 130/66 100 02/07/18 16:53 98.8 F 80 20 112/68 97 02/07/18 13:10 97.8 F 90 18 149/65 100 02/07/18 12:20 97.9 F 17 156/61 02/07/18 12:05 159/61 02/07/18 11:50 148/59 02/07/18 11:35 146/63 02/07/18 11:20 160/67 02/07/18 11:05 169/69 02/07/18 10:50 152/65 02/07/18 10:35 164/76 02/07/18 10:20 162/59 02/07/18 10:05 170/61 02/07/18 09:50 158/64 02/07/18 09:35 163/62 02/07/18 09:20 156/60 02/07/18 09:05 169/68 02/07/18 08:50 155/65 02/07/18 08:35 98.0 F 17 159/65 02/07/18 07:39 17 98 02/07/18 07:23 97 02/07/18 06:57 98.4 F 87 20 116/60 97 02/07/18 03:43 97.9 F 85 16 155/83 100 02/06/18 23:00 97.9 F 83 16 155/77 100 Intake and Output 02/07/18 02/07/18 02/07/18 07:59 15:59 23:59 Intake Total 500 / 500 600 / 600 Output Total 0 / 0 4600 / 4600 Balance 500 / 500 -4000 / -4000 Intake: Oral 500 / 500 0 / 0 Intake, Rinseback and Flushes 600 / 600 Output: Urine 0 / 0 0 / 0 Total Dialysis (HD) Output 4600 / 4600 Other: Stool Size Large Stool Consistency formed Stool Color Brown # Bowel Movements 1 Weight 112.3 kg Blood Glucose* 150 368 175 Hemodialysis Net Fluid Removed 4000 (mL) Patient Weight 02/07/18 23:59 Weight 112.3 kg - General Appearance General appearance: Present: well-developed, well-nourished Exam: Patient seen on dialysis. EENT: Present: ATNC Gastrointestinal: Present: obese Psychiatric: Present: mood/affect appropriate - Lab 02/07/18 04:00 02/07/18 04:00 Most recent lab results ABG pH 7.48 pH Units (7.32-7.45) H 02/02/18 18:36 ABG pCO2 31 mmHg (35-45) L 02/02/18 18:36 ABG pO2 73 mmHg (85-104) L 02/02/18 18:36 ABG HCO3 23 mEq/L (21-27) 02/02/18 18:36 ABG O2 Saturation 96 % (95-98) 02/02/18 18:36 Calcium 8.8 mg/dL (8.6-10.3) 02/07/18 04:00 Phosphorus 3.6 mg/dL (2.7-4.5) 02/02/18 17:35 Magnesium 1.5 mg/dL (1.6-2.6) L 02/03/18 04:00 Consult Discharge Plan - Plan Referrals: Tristen Quintana MD [Primary Care Provider] -
[2018-02-08] MEDS: *HR* Heparin 5,000 UNIT/ML VIAL SQ SCH ×2 (04:29→18:16)
[2018-02-08] MEDS: Budesonide/Formoterol 160/4.5 MDI IH SCH ×2 (07:21→20:12)
[2018-02-08] MEDS: Insulin LISPRO 300 UNITS/3 ML VIAL SQ SCH ×4 (07:59→21:22)
--- NOTE | 2018-02-08 09:44 | Nephrology Progress Note ---
Date of Encounter: 02/08/18 Time of Encounter: 09:42 - Assessment and Plan (1) Anemia in chronic kidney disease, on chronic dialysis Current Visit: No Status: Chronic Hgb 8.6 yesterday No new lab today Goal hgb 10-11 Transfuse per parameters (2) ESRD (end stage renal disease) on dialysis Current Visit: No Status: Chronic Plan for HD tomorrow Continue renal diet Avoid nephrotoxins if possible (3) Sepsis Current Visit: Yes Status: Acute per primary team Qualifiers: Sepsis type: Escherichia coli Qualified Code(s): A41.51 - Sepsis due to Escherichia coli [E. coli] Subjective Principal diagnosis: ESRD Interval history: Patient seen and examined. States she is feeling pretty well today Objective - Vital Signs Vital signs: Vital Signs Temp Pulse Resp BP Pulse Ox 02/08/18 06:13 97.9 F 95 20 137/51 92 02/08/18 04:28 97.7 F 91 16 132/54 100 02/07/18 23:41 97.9 F 79 16 110/54 97 02/07/18 21:13 99 02/07/18 20:07 18 100 02/07/18 19:22 98.0 F 95 16 130/66 100 02/07/18 16:53 98.8 F 80 20 112/68 97 02/07/18 13:10 97.8 F 90 18 149/65 100 02/07/18 12:20 97.9 F 17 156/61 02/07/18 12:05 159/61 02/07/18 11:50 148/59 02/07/18 11:35 146/63 02/07/18 11:20 160/67 02/07/18 11:05 169/69 02/07/18 10:50 152/65 02/07/18 10:35 164/76 02/07/18 10:20 162/59 02/07/18 10:05 170/61 02/07/18 09:50 158/64 Intake and Output 02/07/18 02/08/18 02/08/18 23:59 07:59 15:59 Other: Weight 114.3 kg Blood Glucose* 175 100 Patient Weight 02/08/18 23:59 Weight 114.3 kg - General Appearance General appearance: Present: obese EENT: Present: ATNC, mucous membranes moist, hearing intact Neck: Present: supple Respiratory: Present: clear Cardiology: Present: no edema, normal S1, normal S2 Dialysis Vascular Access: Arteriovenous Fistula Gastrointestinal: Present: no tenderness, no guarding, obese Integumentary: Present: warm and dry Neurologic: Present: alert and oriented x3 Psychiatric: Present: mood/affect appropriate, cooperative - Lab 02/07/18 04:00 02/07/18 04:00 Most recent lab results ABG pH 7.48 pH Units (7.32-7.45) H 02/02/18 18:36 ABG pCO2 31 mmHg (35-45) L 02/02/18 18:36 ABG pO2 73 mmHg (85-104) L 02/02/18 18:36 ABG HCO3 23 mEq/L (21-27) 02/02/18 18:36 ABG O2 Saturation 96 % (95-98) 02/02/18 18:36 Calcium 8.8 mg/dL (8.6-10.3) 02/07/18 04:00 Phosphorus 3.6 mg/dL (2.7-4.5) 02/02/18 17:35 Magnesium 1.5 mg/dL (1.6-2.6) L 02/03/18 04:00 Consult Discharge Plan - Plan Referrals: Tristen Quintana MD [Primary Care Provider] -
[2018-02-08] MEDS: Calcium Acetate 667 MG CAPSULE PO SCH ×3 (10:19→18:16)
[2018-02-08] MEDS: Aspirin Enteric Coated 81 MG Tablet PO SCH (10:25)
[2018-02-08] MEDS: Isosorbide MONOnitrate (24 HR) 30 MG TAB.ER.24H PO SCH (10:25)
[2018-02-08] MEDS: amLODIPine 5 MG TABLET PO SCH (10:25)
--- NOTE | 2018-02-08 11:02 | Infectious Disease Progress No ---
Date of Encounter: 02/08/18 Time of Encounter: 11: - Assessment and Plan (1) Sepsis Current Visit: No Status: Resolved fever, tachycardia, leukocytosis upon admisson. causative organism: E.Coli ESBL 02/02 blood culture x2 positive for E. Coli ESBL S: ertapenem, Meropenem, Tigercycline 02/02 urine culture positive for E. Coli ESBL, kaylan glabrata. Creatinine clearance: 30 Plan: Ertapenem day 6 repeat BC from 02/07 pending consult to urology Qualifiers: Sepsis type: sepsis due to unspecified organism Qualified Code(s): A41.9 - Sepsis, unspecified organism (2) Bacteremia Current Visit: Yes Status: Acute plan as above (3) UTI (urinary tract infection) Current Visit: No Status: Chronic urine culture positive for E.Coli ESBL, cadida glabrata. past cultures positive for E. Coli ESBL, enterococcus, VRE, E. COli MDRO, kaylan tropicalis. Qualifiers: Urinary tract infection type: acute cystitis Hematuria presence: with hematuria Qualified Code(s): N30.01 - Acute cystitis with hematuria (4) Sacral pressure ulcer Current Visit: Yes Status: Acute Qualifiers: Pressure ulcer stage: unspecified pressure ulcer stage Qualified Code(s): L89.159 - Pressure ulcer of sacral region, unspecified stage (5) ESRD (end stage renal disease) Current Visit: No Status: Chronic Per nephrology (6) Diabetes Current Visit: No Status: Chronic Management per primary team Qualifiers: Diabetes mellitus type: type 2 Diabetes mellitus halfway insulin use: with long term care administrator use Diabetes mellitus complication status: with hyperglycemia Qualified Code(s): E11.65 - Type 2 diabetes mellitus with hyperglycemia; Z79.4 - senior living (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 She was sitting up in bed watching TV. She denies nausea, vomiting, diarrhea, fever, chills, chest pain, shortness of breath. Her only complaint today is lower abdominal/suprapubic pain. Infect Dis PN-Objective Data - Labs CBC & Chem 7: 02/07/18 04:00 02/07/18 04:00 Labs: Laboratory Results - last 24 hr 02/06/18 02/06/18 02/07/18 16:46 20:15 07:01 POC Glucose 239 H 208 H 150 H 02/07/18 02/07/18 02/07/18 11:58 15:46 19:26 POC Glucose 170 H 368 H 175 H - Impressions Impressions Abdomen/Pelvis CT 02/03/18 01:42 IMPRESSION: Appropriate right nephroureteral stent positioning. New moderate right pelvocaliectasis with gas fluid level in the upper collecting system, gas in the ureter and urinary bladder-presumably postprocedural however this could potentially be related to urosepsis. New periureteral and right pericolic gutter inflammatory stranding. Right retroperitoneal lymphadenopathy is not substantially changed, presumably reactive. Hepatosplenomegaly. Small right pleural effusion. D/ / 02/03/2018 08:03:30 Hebert Cherry / [place] Interpreting Provider: Hebert Cherry Exam - Constitutional Vitals: Temp Pulse Resp BP Pulse Ox 97.9 F 95 20 137/51 92 02/08/18 06:13 02/08/18 06:13 02/08/18 06:13 02/08/18 06:13 02/08/18 06:13 - Head Head exam: Present: atraumatic, normocephalic - Respiratory Respiratory exam: Present: CTAB - Cardiovascular Cardiovascular exam: Present: RRR, +S1, +S2 - GI/Abdominal GI/Abdominal exam: Present: soft, tenderness (Tenderness to palpation in the lower abdominal/suprapubic area. No guarding present.). Absent: distended, guarding - Extremities Exam Additional comments: Bilateral lower extremity venous stasis present, bilateral lower extremity +1 pitting edema present. - Neurological Exam Neurological exam: Present: alert, oriented X3 - Psychiatric Psychiatric exam: Present: normal affect, normal mood Consult Discharge Plan - Plan Referrals: Tristen Quintana MD [Primary Care Provider] - - Attending Attestation I examined this patient and my medical decision-making was reviewed with the Resident Physician. I agree with the documented findings, disposition and treatment plan as described except to the extent set forth below.
--- NOTE | 2018-02-08 13:38 | Internal Med Progress Note ---
Date of Encounter: 02/08/18 Time of Encounter: 11:15 - Assessment and plan (1) Sepsis Current Visit: Yes Status: Acute Assessment and plan: She did meet sepsis criteria upon admission improving remained afebrile WBC- WNL Blood cx 2/2 positive for ESBL E. COli Cont Ertapenem Qualifiers: Sepsis type: Escherichia coli Qualified Code(s): A41.51 - Sepsis due to Escherichia coli [E. coli] (2) Bacteremia Current Visit: Yes Status: Acute Assessment and plan: Due to UTI Cont IV ertapanem repeat blood cx done y/d.. waiting on cx results (3) UTI (urinary tract infection) Current Visit: Yes Status: Acute Assessment and plan: Urine cultures positive for ESBL and Masha Cont ertapenem # 5.. May need 2 weeks IV abx With her recurrent UTI, will consult urology for further eval Qualifiers: Urinary tract infection type: site unspecified Hematuria presence: without hematuria Qualified Code(s): N39.0 - Urinary tract infection, site not specified (4) Diabetes Current Visit: No Status: Chronic Assessment and plan: Continue basal and sliding scale insulin coverage. Qualifiers: Diabetes mellitus type: type 2 Diabetes mellitus skilled nursing insulin use: with watermelon inspector use Diabetes mellitus complication status: with hyperglycemia Qualified Code(s): E11.65 - Type 2 diabetes mellitus with hyperglycemia; Z79.4 - long-term (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 of insulin (5) ESRD (end stage renal disease) Current Visit: No Status: Chronic Assessment and plan: on HD M/W/F (6) Pressure ulcer of sacral region, stage 3 Current Visit: No Status: Acute Assessment and plan: Wound care following and appreciate recommendations (7) DVT prophylaxis Current Visit: No Status: Acute Assessment and plan: Heparin subcutaneously - Time Spent With Patient Total time spent is greater than 50% in coordination of care (as documented) at patient's floor/unit and/or counseling patient: - Subjective Interval history: Ms. Riley is a 62 year old female with known past medical history of COPD, Chronic hypoxic resp failure, CAD, CVA, DVT, diabetes, ESRD, GERD, G.I. bleed, hyperlipidemia, hypertension and PAD presented to the emergency room on 02/03/18 with chief complaint of fevers and weakness. Upon admission, suspected source of infection was UTI. CT of the abdomen and pelvis showed new moderate right pelvocaliectasis, with gas fluid level in the upper collecting system, gas and the ureter and urinary bladder. Patient was initially started on vancomycin and Zosyn. Blood cultures X2 from 02/02/18 positive for E. coli ESBL and Urine culture positive for ESBL, yeast species. So her abx were switched to Ertapenem. Today pt is more alert, awake and O x 3. Denied any CP / SOB. No complaints today. - Constitutional Vitals: Temp Pulse Resp BP Pulse Ox 97.9 F 95 20 137/51 92 02/08/18 06:13 02/08/18 06:13 02/08/18 06:13 02/08/18 06:13 02/08/18 06:13 General appearance: Present: A&O X 3, no acute distress, answers questions appropriately - Head Head exam: Present: atraumatic, normal inspection - Neck Neck exam general surgery: Present: supple - Respiratory Respiratory exam: Present: chest wall tenderness. Absent: rales, respiratory distress, rhonchi, wheezes - Cardiovascular Cardiovascular exam: Present: RRR, +S1, +S2. Absent: tachycardia - GI/Abdominal GI/Abdominal exam: Present: normal bowel sounds, soft. Absent: rebound, rigid, tenderness - Extremities Exam Extremities exam: Present: pedal edema (1+). Absent: calf tenderness, tenderness - Back Exam Back exam: Absent: CVA tenderness (L), CVA tenderness (R) Additional comments: stage 3 pressure sacral ulcer noticed - Neurological Exam Neurological exam: Present: alert, oriented X3 - Psychiatric Psychiatric exam: Present: normal affect, normal mood Internal Medicine: Result - Labs CBC & Chem 7: 02/07/18 04:00 02/07/18 04:00 - ABG Interpretation ABG results: ABG ABG pH 7.48 pH Units (7.32-7.45) H 02/02/18 18:36 ABG pCO2 31 mmHg (35-45) L 02/02/18 18:36 ABG pO2 73 mmHg (85-104) L 02/02/18 18:36 ABG O2 Saturation 96 % (95-98) 02/02/18 18:36 PT/INR, D-dimer PT 12.8 Seconds (9.4-12.1) H 02/02/18 20:44 Consult Discharge Plan - Plan Referrals: Tristen Quintana MD [Primary Care Provider] -
--- NOTE | 2018-02-08 16:23 | Urology - Consult Note ---
Date of Encounter: 02/08/18 Time of Encounter: 16:16 - Assessment and Plan (1) UTI (urinary tract infection) Current Visit: No Status: Acute Assessment and plan: Agree with current treatment plan per infectious disease. At this time the patient's right ureteral stent could be a source of her infection but at this time unsure of course as removing the stent can make things worse. Recommend to continue culture specific antibiotics and patient will need to follow-up with Dr. Garcia in 1-2 weeks for discussion of management of her right ureteral stent. Qualifiers: Urinary tract infection type: acute cystitis Hematuria presence: with hematuria Qualified Code(s): N30.01 - Acute cystitis with hematuria (2) Hydronephrosis, right Current Visit: Yes Status: Acute Assessment and plan: Stable currently with her right ureteral stent. If patient fails to continue to improve will need repeat CT abdomen for evaluation of possible progression of possible renal abscess. Please call with any questions. Urology CN:HPI Consult date: 02/08/18 Reason for consult Urology: Other (recurrent uti) Requesting physician: Enmanuel Singh History of present illness: Lynnette is a 62-year-old female well-known to the urology service for chronic recurrent urinary tract infections. Patient also with chronic right-sided hydronephrosis status post ureteral stent placement in November 2017. Patient now admitted again secondary to recurrent infection. Patient growing multiple organisms. CT scan done upon admission revealed air within the right renal collecting system and upon personal review possible early abscess in the upper pole of the right kidney. Patient has clinically been improving since admission but has had persistent blood cultures that are positive. Patient feels much better at this time. Past Med Surg Social Fam HX - Past Medical History Medical history: COPD, coronary artery disease, CVA, DVT, diabetes, dialysis, GERD, GI bleed, hyperlipidemia, hypertension, peripheral artery disease, other Psychiatric history: anxiety, depression, schizophrenia, previous psychiatric hospitalization - Past Surgical History Surgical History: angioplasty/stent, appendectomy, cholecystectomy, coronary bypass (CABG), hysterectomy, knee replacement, other, IVC filter - Social History Smoking Status: Current every day smoker Smokeless Tobacco Status: No Alcohol use: none Drug use: none - Family History Father Family Member Ethnicity: Non- Living Status: Hx Family Cardiac Disorders: Yes (CAD, [place]) Hx Family Cancer: Yes (Polycythemia) Hx Family Endocrine Disorder: Yes (DM) Mother Family Member Ethnicity: Non- Living Status: Still Living Hx Family Cardiac Disorders: Yes Hx Family Respiratory Disorders: Yes (End stage COPD) Brother Adopted: No Family Member Ethnicity: Non- Living Status: Still Living Hx Family Cardiac Disorders: No Hx Family Respiratory Disorders: No Hx Family Cancer: No Hx Family GI Disorders: No Hx Family Endocrine Disorder: No Hx Family Neuromuscular Disorders: No Hx Family Neurologic Disorders: No Hx Family HEENT Disorders: No Hx Family Autoimmune Disorders: No Sister Adopted: No Family Member Ethnicity: Non- Living Status: Still Living Hx Family Cardiac Disorders: Yes Hx Family Respiratory Disorders: No Hx Family Cancer: No Hx Family GI Disorders: No Hx Family Endocrine Disorder: Yes Hx Family Neuromuscular Disorders: No Hx Family Neurologic Disorders: No Hx Family HEENT Disorders: No Hx Family Autoimmune Disorders: No Medications and Allergies Omeprazole [PriLOSEC] 20 mg PO DAILY 05/11/15 [History] Colestipol HCl [Colestid] 1 gm PO BID 06/12/15 [History] Carvedilol 12.5 mg PO BID 10/28/15 [History] Calcium Acetate [Phos-LO] 1,334 mg PO TIDWM 09/06/16 [History] Folic Acid/Vit Bcomp,C [Renal Vitamin Tablet] 0.8 mg PO DAILY 04/15/17 [History] ARIPiprazole [Abilify] 10 mg PO DAILY 09/13/17 [History] Aspirin Enteric Coated [Aspirin EC] 81 mg PO DAILY 09/13/17 [History] Budesonide/Formoterol 160/4.5 [Symbicort 160/4.5] 2 puff IH BIDR 09/13/17 [ History] Cholecalciferol (Vitamin D3) [Vitamin D3] 50,000 unit PO TH 09/13/17 [History] OxyCODONE/APAP 10/325 [Percocet 10/325 MG] 1 tab PO Q6H PRN 09/13/17 [History] Sennosides [Senna] 8.6 mg PO BID PRN 09/13/17 [History] Sevelamer [Renvela] 800 mg PO TID 09/13/17 [History] Albuterol Neb [AccuNeb] 0.63 mg IH Q6H PRN 10/18/17 [History] Gabapentin [Neurontin] 100 mg PO TID #60 capsule 10/21/17 [Rx] Collagenase Oint [Santyl] 1 appl TP DAILY 11/11/17 [History] Oxybutynin [Ditropan] 5 mg PO TID 11/11/17 [History] Isosorbide MONOnitrate (24 HR) [Imdur] 30 mg PO DAILY #30 tab.er.24h 11/19/17 [ Rx] Insulin LISPRO [Humalog Kwikpen U-100] 0 unit SQ ACHS 11/25/17 [History] Acetaminophen [Tylenol] 650 mg PO Q6HR PRN tablet 12/14/17 [Rx] Amitriptyline HCl 100 mg PO HS 12/22/17 [History] Morphine Sulfate SR (12 HR) [MS Contin] 30 mg PO Q12HR 12/22/17 [History] Rosuvastatin [Crestor] 10 mg PO HS 12/22/17 [History] amLODIPine [Norvasc] 5 mg PO DAILY 12/30/17 [History] Insulin Glargine,Hum.rec.anlog [Basaglar Kwikpen U-100] 60 unit SQ BID 01/06/18 [History] metOLazone [Zaroxolyn] 2.5 mg PO DAILY 01/06/18 [History] Metoclopramide [Reglan] 5 mg PO TIDAC #15 ud.liq 01/13/18 [Rx] Clopidogrel [Plavix] 75 mg PO DAILY 02/03/18 [History] 3 Allergy/AdvReac Type Severity Reaction Status Date / Time No Known Allergies Allergy Verified 02/03/18 12:01 Review of Systems - Constitutional no chills, no fever(s) - EENT Nose, mouth and throat: no dizziness - Cardiovascular no chest pain, no diaphoresis - Respiratory no cough, no dyspnea - Gastrointestinal abdominal pain - Musculoskeletal no back pain - Integumentary no erythema, no swelling Exam Initial Vital Signs Temp Pulse Resp BP Pulse Ox 101.2 F H 105 20 126/77 96 02/02/18 16:44 02/02/18 16:44 02/02/18 16:44 02/02/18 16:44 02/02/18 16:44 - General physical appearance Present: well developed, well nourished - Eyes Present: PERRL, normal ocular movement. Absent: icteric - Cardiovascular Cardiovascular exam IM: RRR - Abdomen Abdomen: Present: soft. Absent: non tender, masses Urology Results - Labs 02/07/18 04:00 02/07/18 04:00 Abnormal lab results RBC 3.15 M/mcL (3.82-4.97) L 02/07/18 04:00 Hgb 8.6 g/dL (11.5-15.4) L 02/07/18 04:00 Hct 28.0 % (35.3-44.9) L 02/07/18 04:00 MCH 27.3 pg (28.0-33.3) L 02/07/18 04:00 MCHC 30.7 g/dL (31.6-35.5) L 02/07/18 04:00 RDW 15.4 % (11.5-14.5) H 02/07/18 04:00 Nucleated RBCs/100 WBC 0.3 /100 WBC (0) H 02/04/18 03:16 PT 12.8 Seconds (9.4-12.1) H 02/02/18 20:44 ABG pH 7.48 pH Units (7.32-7.45) H 02/02/18 18:36 ABG pCO2 31 mmHg (35-45) L 02/02/18 18:36 ABG pO2 73 mmHg (85-104) L 02/02/18 18:36 Sodium 131 mEq/L (136-145) L 02/07/18 04:00 Chloride 96 mEq/L (98-107) L 02/07/18 04:00 BUN 35 mg/dL (8-23) H 02/07/18 04:00 Creatinine 2.51 mg/dL (0.60-1.20) H 02/07/18 04:00 Est GFR ( Amer) 23 (> 60) L 02/07/18 04:00 Est GFR (Non-Af Amer) 19 (> 60) L 02/07/18 04:00 Glucose 198 mg/dL (70-105) H 02/07/18 04:00 POC Glucose 175 mg/dL (70-99) H 02/07/18 19:26 Lactic Acid 0.4 mmol/L (0.5-2.2) L 02/03/18 05:25 Magnesium 1.5 mg/dL (1.6-2.6) L 02/03/18 04:00 Alkaline Phosphatase 219 Units/L (34-104) H 02/02/18 17:35 Troponin I 0.04 ng/mL (< 0.04) H* 02/03/18 07:45 Ur Specimen Adequacy See below A 02/02/18 17:45 Urine Clarity Turbid (Clear) A 02/02/18 17:45 Urine Protein >=300 mg/dL (Neg-Trace) H 02/02/18 17:45 Urine Ketones Trace mg/dL (Negative) H 02/02/18 17:45 Urine Blood Moderate (Negative) H 02/02/18 17:45 Ur Leukocyte Esterase Large (Negative) H 02/02/18 17:45 Urine Microscopic WBC TNTC per hpf (0-3) H 02/02/18 17:45 Ur Culture Indicated? YES (NO) A 02/02/18 17:45 Enterobacteriac sp PCR DETECTED (Not Detect) A 02/02/18 17:35 E. coli (PCR) DETECTED (Not Detect) A 02/02/18 17:35 All other labs normal. Consult Discharge Plan - Plan Referrals: Tristen Quintana MD [Primary Care Provider] -
[2018-02-08] MEDS: Insulin DETEMIR 100 UNIT/ML X5UNITS SQ SCH (21:21)
[2018-02-09] MEDS: *HR* Heparin 5,000 UNIT/ML VIAL SQ SCH (04:56)
[2018-02-09 06:12] LABS: Basophils % 0.6 %; Eosinophils # 0.3 K/mcL (0.0-0.6); Eosinophils % 3.6 %; Hemoglobin 9.3 g/dL (11.5-15.4); Immature Granulocytes % 0.8 % (0-4); Lymphocytes # 1.6 K/mcL (0.6-4.6); Lymphocytes % 22.4 %; Mean Corpuscular Hemoglobin 27.5 pg (28.0-33.3); Mean Corpuscular Volume 88.8 fL (83.0-100.0); Mean Platelet Volume 9.8 fL (9.4-12.4); Monocytes # 0.6 K/mcL (0.0-1.3); Monocytes % 8.7 %; Neutrophils # 4.6 K/mcL (1.6-8.9); Platelet Count 201 K/mcL (140-400); Red Blood Count 3.38 M/mcL (3.82-4.97); Red Cell Distribution Width 15.1 % (11.5-14.5); Segmented Neutrophils % 63.9 %
[2018-02-09 06:32] LABS: Potassium 4.4 mEq/L (3.5-5.1)
[2018-02-09 06:33] LABS: Calcium 8.7 mg/dL (8.6-10.3)
[2018-02-09] MEDS ORDERED: 0.9 % Sodium Chloride 250 ML IVC PRN (07:16)
[2018-02-09] MEDS ORDERED: 0.9 % Sodium Chloride 1,000 ML PRIME SCH (07:30)
[2018-02-09] MEDS ORDERED: 0.9 % Sodium Chloride 1,000 ML ONE (07:33)
[2018-02-09] MEDS: Insulin LISPRO 300 UNITS/3 ML VIAL SQ SCH ×2 (07:42→13:38)
[2018-02-09] MEDS: Budesonide/Formoterol 160/4.5 MDI IH SCH (07:49)
--- NOTE | 2018-02-09 08:24 | Discharge Summary ---
- NOTES TO OUTPATIENT PROVIDER Notes to Outpatient Provider: f/u with Urologist Dr. Garcia in one week to discuss about your Rt ureter stent removal Orders not resulted at time of discharge: Pending orders 02/07/18 17:30 Culture,Blood [BC] Stat 02/10/18 04:00 BMP [Basic Metabolic Panel] AM 0400 Complete Blood Count w/o Diff [HEME] AM 0400 02/11/18 04:00 BMP [Basic Metabolic Panel] AM 0400 Complete Blood Count w/o Diff [HEME] AM 0400 02/12/18 04:00 BMP [Basic Metabolic Panel] AM 0400 Complete Blood Count w/o Diff [HEME] AM 0400 02/13/18 04:00 BMP [Basic Metabolic Panel] AM 0400 Complete Blood Count w/o Diff [HEME] AM 0400 02/14/18 04:00 BMP [Basic Metabolic Panel] AM 0400 Complete Blood Count w/o Diff [HEME] AM 0400 Date of Encounter: 02/09/18 Time of Encounter: 08:22 - Discharge Diagnosis (1) Sepsis Priority: Primary Status: Acute Qualifiers: Sepsis type: Escherichia coli Qualified Code(s): A41.51 - Sepsis due to Escherichia coli [E. 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 Riley is a 62 year old female with known past medical history of COPD, Chronic hypoxic resp failure, CAD, CVA, DVT, diabetes, ESRD, GERD, G.I. bleed, hyperlipidemia, hypertension and PAD presented to the emergency room on 02/03/18 with chief complaint of fevers and weakness. Upon admission, suspected source of infection was UTI. CT of the abdomen and pelvis showed new moderate right pelvocaliectasis, with gas fluid level in the upper collecting system, gas and the ureter and urinary bladder. Patient was initially started on vancomycin and Zosyn. Blood cultures X2 from 02/02/18 positive for E. coli ESBL and Urine culture positive for ESBL, yeast species. So her abx were switched to Ertapenem. Pt's initial CT of abd showed Rt pelvocaliectasis and Rt ureter stent placed in Nov 2017, which could be source of her recurrent UTI. Pt was evaluated by Urology who recommend to continue culture specific abx and f/u with Dr. Garcia as an about pt to discuss about further options regarding her Rt ureter stent.Pt was evaluated by ID who suggested to contine Ertapenem for total 2 weeks course. So will d/c her home with home health services for another week of IV abx through mid line. - Time Spent with Patient Total time spent providing and/or coordinating discharge services: Greater than 30 minutes (spent 40 minutes on this pt's discharge summary due to her complex medical problem) - Discharge Medications Prescriptions: Collagenase Oint [Santyl] 1 appl TP DAILY #1 tube Ertapenem [INVanz] 500 mg IVPB DAILY #7 vial Saccharomyces Boulardii [Florastor] 250 mg PO BID #20 capsule Home Medications: Omeprazole [PriLOSEC] 20 mg PO DAILY 05/11/15 [History] Colestipol HCl [Colestid] 1 gm PO BID 06/12/15 [History] Carvedilol 12.5 mg PO BID 10/28/15 [History] Calcium Acetate [Phos-LO] 1,334 mg PO TIDWM 09/06/16 [History] Folic Acid/Vit Bcomp,C [Renal Vitamin Tablet] 0.8 mg PO DAILY 04/15/17 [History] ARIPiprazole [Abilify] 10 mg PO DAILY 09/13/17 [History] Aspirin Enteric Coated [Aspirin EC] 81 mg PO DAILY 09/13/17 [History] Budesonide/Formoterol 160/4.5 [Symbicort 160/4.5] 2 puff IH BIDR 09/13/17 [ History] Cholecalciferol (Vitamin D3) [Vitamin D3] 50,000 unit PO TH 09/13/17 [History] OxyCODONE/APAP 10/325 [Percocet 10/325 MG] 1 tab PO Q6H PRN 09/13/17 [History] Sennosides [Senna] 8.6 mg PO BID PRN 09/13/17 [History] Sevelamer [Renvela] 800 mg PO TID 09/13/17 [History] Albuterol Neb [AccuNeb] 0.63 mg IH Q6H PRN 10/18/17 [History] Gabapentin [Neurontin] 100 mg PO TID #60 capsule 10/21/17 [Rx] Collagenase Oint [Santyl] 1 appl TP DAILY 11/11/17 [History] Oxybutynin [Ditropan] 5 mg PO TID 11/11/17 [History] Isosorbide MONOnitrate (24 HR) [Imdur] 30 mg PO DAILY #30 tab.er.24h 11/19/17 [ Rx] Insulin LISPRO [Humalog Kwikpen U-100] 0 unit SQ ACHS 11/25/17 [History] Acetaminophen [Tylenol] 650 mg PO Q6HR PRN tablet 12/14/17 [Rx] Amitriptyline HCl 100 mg PO HS 12/22/17 [History] Morphine Sulfate SR (12 HR) [MS Contin] 30 mg PO Q12HR 12/22/17 [History] Rosuvastatin [Crestor] 10 mg PO HS 12/22/17 [History] amLODIPine [Norvasc] 5 mg PO DAILY 12/30/17 [History] Metoclopramide [Reglan] 5 mg PO TIDAC #15 ud.liq 01/13/18 [Rx] Clopidogrel [Plavix] 75 mg PO DAILY 02/03/18 [History] Collagenase Oint [Santyl] 1 appl TP DAILY #1 tube 02/09/18 [Rx] Ertapenem [INVanz] 500 mg IVPB DAILY #7 vial 02/09/18 [Rx] Insulin Glargine,Hum.rec.anlog [Basaglar Kwikpen U-100] 40 unit SQ HS #0 [Rx] Saccharomyces Boulardii [Florastor] 250 mg PO BID #20 capsule 02/09/18 [Rx] Allergies/Adverse Reactions: 3 Allergy/AdvReac Type Severity Reaction Status Date / Time No Known Allergies Allergy Verified 02/03/18 12:01 Date of admission: 02/02/18 22:28 Primary care physician: Tristen Quintana MD Consults: 02/03/18 01:26 Consult to [employer] Ambassador [CONS] Routine Reason for SW Consult: Patient from home with [facility] per old records with [employer], [facility], and [facility] home o2. 02/03/18 01:39 Consult to Nephrology [CONS] Routine Consulting Provider: Kidney Olivia/MARCO/SWAPNA/MILLIE Reason for Consult: ESRD on HD Call Completed: No 02/03/18 08:15 Consult to Dialysis [CONS] ONCE 02/04/18 07:45 Consult to Dialysis [CONS] ONCE 02/04/18 07:49 Consult to Wound Care [CONS] Routine Reason for Consult: Sacral decubitus ulcer Call Completed: No 02/04/18 09:06 Consult to Invasive Line Access Team [CONS] Routine Reason for Consult: powerglide insertion Line Type: EPIV PICC line indications: Limited vascular access 02/06/18 18:20 Consult to Infectious Diseases [CONS] Routine Consulting Provider: Infectious Disease Olivia Reason for Consult: Recurrent ESBL infections Call Completed: No 02/07/18 08:00 Consult to Dialysis [CONS] ONCE 02/08/18 11:43 Consult to Physical Therapy [CONS] Routine Comment: Evaluate, develop and implement POC Reason for Consult: Evaluation Does patient have active BEDREST order?: No Is patient medically & hemodynamically stable?: Yes 02/08/18 11:44 Consult to Occupational Therapy [CONS] Routine Comment: Evaluate, develop and implement POC Reason for Consult: evaluation Does patient have active BEDREST order?: No Is patient medically & hemodynamically stable?: Yes 02/08/18 13:48 Consult to Urology [CONS] Routine Consulting Provider: Urology Olivia Reason for Consult: Recurrent UTI with ESL E. Coli.. now have bacteremia too Time Notified: 13:49 Call Completed: Yes 05/02/18 07:30 Consult to Dialysis [CONS] ONCE - Constitutional Vitals: Temp Pulse Resp BP Pulse Ox 97.6 F 97 16 137/69 97 02/09/18 06:40 02/09/18 06:40 02/09/18 07:49 02/09/18 06:40 02/09/18 07:49 General appearance: Present: A&O X 3, no acute distress, answers questions appropriately - Head Head exam: Present: atraumatic, normal inspection - Neck Neck exam general surgery: Present: supple - Respiratory Respiratory exam: Present: decreased breath sounds. Absent: rales, respiratory distress, rhonchi, wheezes - Cardiovascular Cardiovascular exam: Present: RRR, +S1, +S2. Absent: tachycardia - GI/Abdominal GI/Abdominal exam: Present: normal bowel sounds, soft. Absent: rebound, rigid, tenderness - Extremities Exam Extremities exam: Present: pedal edema (trace). Absent: calf tenderness, tenderness - Back Exam Back exam: Absent: CVA tenderness (L), CVA tenderness (R) - Patient Status Disposition: Home Health Service Condition: Good Overall status at discharge: patient is back to baseline - Discharge Instructions Follow Up With: Tristen Quintana MD [Primary Care Provider] - Naren Garcia MD [Partnered Physician] - - Diet and Activity Activity: increase activity as tolerated, wear oxygen at all times Diet: low salt diet
--- NOTE | 2018-02-09 08:34 | Physician Discharge Referral ---
Home Health/Hosp Referral Info Transfer to: Home Health Provider in Charge Post Discharge: PCP - Diagnosis (1) Sepsis Status: Acute (2) Bacteremia Status: Acute (3) UTI (urinary tract infection) Status: Acute (4) Diabetes Status: Chronic (5) ESRD (end stage renal disease) Status: Chronic (6) Pressure ulcer of sacral region, stage 3 Status: Acute (7) Ureteral stent retained Status: Chronic (8) Hydronephrosis, right Status: Chronic (9) Chronic respiratory failure with hypoxia Status: Chronic (10) DVT prophylaxis Status: Acute - Respiratory Orders Smoking Cessation: Smoking cessation has been advised. For more information, call the [place] Quit Line at 3-957-QJVLNOW. - Services Needed Following services are medically necessary services: Nursing - Transfer Medications Prescriptions: Collagenase Oint [Santyl] 1 appl TP DAILY #1 tube Ertapenem [INVanz] 500 mg IVPB DAILY #7 vial Saccharomyces Boulardii [Florastor] 250 mg PO BID #20 capsule Home Medications: Omeprazole [PriLOSEC] 20 mg PO DAILY 05/11/15 [History] Colestipol HCl [Colestid] 1 gm PO BID 06/12/15 [History] Carvedilol 12.5 mg PO BID 10/28/15 [History] Calcium Acetate [Phos-LO] 1,334 mg PO TIDWM 09/06/16 [History] Folic Acid/Vit Bcomp,C [Renal Vitamin Tablet] 0.8 mg PO DAILY 04/15/17 [History] ARIPiprazole [Abilify] 10 mg PO DAILY 09/13/17 [History] Aspirin Enteric Coated [Aspirin EC] 81 mg PO DAILY 09/13/17 [History] Budesonide/Formoterol 160/4.5 [Symbicort 160/4.5] 2 puff IH BIDR 09/13/17 [ History] Cholecalciferol (Vitamin D3) [Vitamin D3] 50,000 unit PO TH 09/13/17 [History] OxyCODONE/APAP 10/325 [Percocet 10/325 MG] 1 tab PO Q6H PRN 09/13/17 [History] Sennosides [Senna] 8.6 mg PO BID PRN 09/13/17 [History] Sevelamer [Renvela] 800 mg PO TID 09/13/17 [History] Albuterol Neb [AccuNeb] 0.63 mg IH Q6H PRN 10/18/17 [History] Gabapentin [Neurontin] 100 mg PO TID #60 capsule 10/21/17 [Rx] Collagenase Oint [Santyl] 1 appl TP DAILY 11/11/17 [History] Oxybutynin [Ditropan] 5 mg PO TID 11/11/17 [History] Isosorbide MONOnitrate (24 HR) [Imdur] 30 mg PO DAILY #30 tab.er.24h 11/19/17 [ Rx] Insulin LISPRO [Humalog Kwikpen U-100] 0 unit SQ ACHS 11/25/17 [History] Acetaminophen [Tylenol] 650 mg PO Q6HR PRN tablet 12/14/17 [Rx] Amitriptyline HCl 100 mg PO HS 12/22/17 [History] Morphine Sulfate SR (12 HR) [MS Contin] 30 mg PO Q12HR 12/22/17 [History] Rosuvastatin [Crestor] 10 mg PO HS 12/22/17 [History] amLODIPine [Norvasc] 5 mg PO DAILY 12/30/17 [History] Metoclopramide [Reglan] 5 mg PO TIDAC #15 ud.liq 01/13/18 [Rx] Clopidogrel [Plavix] 75 mg PO DAILY 02/03/18 [History] Collagenase Oint [Santyl] 1 appl TP DAILY #1 tube 02/09/18 [Rx] Ertapenem [INVanz] 500 mg IVPB DAILY #7 vial 02/09/18 [Rx] Insulin Glargine,Hum.rec.anlog [Basaglar Kwikpen U-100] 40 unit SQ HS #0 [Rx] Saccharomyces Boulardii [Florastor] 250 mg PO BID #20 capsule 02/09/18 [Rx] Allergies/Adverse Reactions: 3 Allergy/AdvReac Type Severity Reaction Status Date / Time No Known Allergies Allergy Verified 02/03/18 12:01 Certification: Further, I certify that my clinical findings support that this patient is homebound (i.e. absences from home require considerable and taxing effort and are for medical reasons or anabaptism services or infrequently or short duration when for other reasons) because: Homebound Reason: Patient requires assistance of a person or device to safely leave home Attestation: My signature below is to certify that this patient is under my care and that I, or nurse practitioner, or a physician's assistant counsel working with me, has a face-to -face encounter with this patient.
[2018-02-09] MEDS: Calcium Acetate 667 MG CAPSULE PO SCH ×2 (10:57→13:38)
[2018-02-09] MEDS: Aspirin Enteric Coated 81 MG Tablet PO SCH (10:57)
[2018-02-09 12:20] VITALS: BP 156/81
--- NOTE | 2018-02-09 13:37 | Infectious Disease Progress No ---
Date of Encounter: 02/09/18 Time of Encounter: 13:57 - Assessment and Plan (1) Sepsis Current Visit: Yes Status: Acute fever, tachycardia, leukocytosis upon admisson. causative organism: E.Coli ESBL 02/02 blood culture x2 positive for E. Coli ESBL S: ertapenem, Meropenem, Tigercycline 02/02 urine culture positive for E. Coli ESBL, kaylan glabrata. 02/07 prelim blood cultures negative Creatinine clearance: 30 Plan: Ertapenem day 7 apreciate urology recs. causative organism: E.Coli ESBL Duration of treatment: 10 days follow up with urology outpatient. Qualifiers: Sepsis type: Escherichia coli Qualified Code(s): A41.51 - Sepsis due to Escherichia coli [E. coli] (2) Bacteremia Current Visit: Yes Status: Acute plan as above (3) UTI (urinary tract infection) Current Visit: No Status: Chronic urine culture positive for E.Coli ESBL, cadida glabrata. past cultures positive for E. Coli ESBL, enterococcus, VRE, E. COli MDRO, kaylan tropicalis. 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 She was sitting up in bed watching TV. She denies nausea, vomiting, diarrhea, fever, chills, chest pain, shortness of breath. she denies lower abdominal/suprapubic pain Infect Dis PN-Objective Data - Labs CBC & Chem 7: 02/09/18 06:00 02/09/18 04:00 Labs: Laboratory Results - last 24 hr 02/08/18 02/08/18 02/08/18 06:18 07:36 10:50 WBC RBC Hgb Hct MCV MCH MCHC RDW Plt Count MPV Immature Gran % Seg Neutrophils % Lymphocytes % Monocytes % Eosinophils % Basophils % Neutrophils # Lymphocytes # Monocytes # Eosinophils # Basophils # Sodium Potassium Chloride Carbon Dioxide BUN Creatinine Est GFR ( Amer) Est GFR (Non-Af Amer) BUN/Creatinine Ratio Glucose POC Glucose 49 L* 100 H 190 H Calculated Osmolality Calcium Magnesium 02/08/18 02/08/18 02/09/18 15:40 19:45 04:00 WBC RBC Hgb Hct MCV MCH MCHC RDW Plt Count MPV Immature Gran % Seg Neutrophils % Lymphocytes % Monocytes % Eosinophils % Basophils % Neutrophils # Lymphocytes # Monocytes # Eosinophils # Basophils # Sodium 135 L Potassium 4.4 Chloride 97 L Carbon Dioxide 30 H BUN 26 H Creatinine 2.16 H Est GFR ( Amer) 28 L Est GFR (Non-Af Amer) 23 L BUN/Creatinine Ratio 12 Glucose 79 POC Glucose 255 H 257 H Calculated Osmolality 284 Calcium 8.7 Magnesium 02/09/18 02/09/18 02/09/18 04:00 06:00 06:42 WBC 7.1 RBC 3.38 L Hgb 9.3 L Hct 30.0 L MCV 88.8 MCH 27.5 L MCHC 31.0 L RDW 15.1 H Plt Count 201 MPV 9.8 Immature Gran % 0.8 Seg Neutrophils % 63.9 Lymphocytes % 22.4 Monocytes % 8.7 Eosinophils % 3.6 Basophils % 0.6 Neutrophils # 4.6 Lymphocytes # 1.6 Monocytes # 0.6 Eosinophils # 0.3 Basophils # 0.0 Sodium Potassium Chloride Carbon Dioxide BUN Creatinine Est GFR ( Amer) Est GFR (Non-Af Amer) BUN/Creatinine Ratio Glucose POC Glucose 76 Calculated Osmolality Calcium Magnesium 2.0 Cultures: Cultures 02/07/18 17:30 Blood Culture - Preliminary Peripheral Venipuncture No growth. 02/07/18 17:21 Blood Culture - Preliminary Peripheral Venipuncture No growth. Exam - Constitutional Vitals: Temp Pulse Resp BP Pulse Ox 97.6 F 97 18 156/81 97 02/09/18 12:20 02/09/18 06:40 02/09/18 12:20 02/09/18 12:20 02/09/18 07:49 General appearance: morbidly obese, no acute distress - Head Head exam: Present: atraumatic, normocephalic - Respiratory Respiratory exam: Present: CTAB - Cardiovascular Cardiovascular exam: Present: RRR, +S1, +S2 - GI/Abdominal GI/Abdominal exam: Present: distended, normal bowel sounds, soft. Absent: tenderness - Extremities Exam Extremities exam: Present: pedal edema (+1 bilateral lower extremity pedal edema , venous stasis present) - Neurological Exam Neurological exam: Present: alert, oriented X3 Consult Discharge Plan - Plan Instructions: Urinary Tract Infection in Women (DC), Sepsis (DC) Referrals: Tristen Quintana MD [Primary Care Provider] - (Patient will follow up with her nephrolgist during HD ) Naren Garcia MD [Partnered Physician] - (WEB REQUEST SENT. OFFICE WILL CALL YOU WITH AN APPOINTMENT DATE AND TIME) Prescriptions: Collagenase Oint [Santyl] 1 appl TP DAILY #1 tube Ertapenem [INVanz] 500 mg IVPB DAILY #7 vial Saccharomyces Boulardii [Florastor] 250 mg PO BID #20 capsule - Attending Attestation I examined this patient and my medical decision-making was reviewed with the Resident Physician. I agree with the documented findings, disposition and treatment plan as described except to the extent set forth below. Patient doing great. This she states that she is wants to go home. Apparently she lives alone and has home health coming every day. I am concerned because of her strength and not sure if she is getting require more help. If PTOT since she is ready to go less than that is fine. Patient is on ertapenem. Continue ertapenem through 02/21/2018. Please check weekly CBC and BMP
[2018-02-09] MEDS: amLODIPine 5 MG TABLET PO SCH (13:38)
[2018-02-09] MEDS: Isosorbide MONOnitrate (24 HR) 30 MG TAB.ER.24H PO SCH (13:38)
== END 2018-02-09 14:34 | disposition home health service (06) ==
LOC: EMEROO 16:43 → 2SOUTHHOLD 16:43 → SUATTDRO 22:28 → 2SOUTHHOLD 23:13 → SUATTDRO 02-03 01:30 → 2ANU 02-03 17:33
PROVIDERS: ADMIT Hospitalist; ATTEND Family Medicine

== ENCOUNTER 2018-02-27 00:22 | Inpatient (IN) ==
[2018-02-27] MEDS ORDERED: *HR* Dextrose 50 % in Water (Syg) 50 ML SYRINGE ONE (00:31)
--- NOTE | 2018-02-27 00:39 | Emergency Department Note ---
Disposition Clinical Impression: Hypoglycemia Altered mental status Qualifiers: Altered mental status type: unspecified Qualified Code(s): R41.82 - Altered mental status, unspecified Pulmonary edema Qualifiers: Chronicity: acute Qualified Code(s): J81.0 - Acute pulmonary edema Disposition: Admitted As Inpatient Condition: Fair Referrals: Tristen Quintana MD [Primary Care Provider] - Forms: ED Satisfaction Letter Time of Disposition: 05:14 General Adult HPI - General Chief complaint: ED Altered Mental Status Stated complaint: altered mental status Time Seen by Provider: 02/27/18 00:37 Source: EMS Mode of arrival: EMS Limitations: altered mental status Nursing Notes Reviewed: Yes Vital Signs Reviewed: Yes - History of Present Illness HPI Narrative: Patient is a 62-year-old female with past medical history of hypertension, hyperlipidemia, diabetes, CAD, dialysis Wednesday and Wednesday. She presents today due to altered mental status and concern for hypoglycemia. EMS was called due to altered mental status, upon arrival, blood glucose was in the 30s. They were unable to get a line on the patient. They state that when they arrived a family member was trying to feed her chocolate. EMS gave her oral glucose and had some mild improvement in her mental status. On arrival, patient had mumbling response to sternal rub but otherwise was not answering any questions or following any commands. No family present at bedside for any additional detail. - Related Data Home Medications Medication Instructions Recorded Confirmed Omeprazole [PriLOSEC] 20 mg PO DAILY 05/11/15 02/03/18 Colestipol HCl [Colestid] 1 gm PO BID 06/12/15 02/03/18 Carvedilol 12.5 mg PO BID 10/28/15 02/03/18 Calcium Acetate [Phos-LO] 1,334 mg PO TIDWM 09/06/16 02/03/18 Folic Acid/Vit Bcomp,C [Renal 0.8 mg PO DAILY 04/15/17 02/03/18 Vitamin Tablet] ARIPiprazole [Abilify] 10 mg PO DAILY 09/13/17 02/03/18 Aspirin Enteric Coated [Aspirin EC] 81 mg PO DAILY 09/13/17 02/03/18 Budesonide/Formoterol 160/4.5 2 puff IH BIDR 09/13/17 02/03/18 [Symbicort 160/4.5] Cholecalciferol (Vitamin D3) 50,000 unit PO TH 09/13/17 02/03/18 [Vitamin D3] OxyCODONE/APAP 10/325 [Percocet 1 tab PO Q6H PRN 09/13/17 02/03/18 10/325 MG] Sennosides [Senna] 8.6 mg PO BID PRN 09/13/17 02/03/18 Sevelamer [Renvela] 800 mg PO TID 09/13/17 02/03/18 Albuterol Neb [AccuNeb] 0.63 mg IH Q6H PRN 10/18/17 02/03/18 Collagenase Oint [Santyl] 1 appl TP DAILY 11/11/17 02/03/18 Oxybutynin [Ditropan] 5 mg PO TID 11/11/17 02/03/18 Insulin LISPRO [Humalog Kwikpen 0 unit SQ ACHS 11/25/17 02/03/18 U-100] Amitriptyline HCl 100 mg PO HS 12/22/17 02/03/18 Morphine Sulfate SR (12 HR) [MS 30 mg PO Q12HR 12/22/17 02/03/18 Contin] Rosuvastatin [Crestor] 10 mg PO HS 12/22/17 02/03/18 amLODIPine [Norvasc] 5 mg PO DAILY 12/30/17 02/03/18 Clopidogrel [Plavix] 75 mg PO DAILY 02/03/18 02/03/18 Previous Rx's Medication Instructions Recorded Gabapentin [Neurontin] 100 mg PO TID #60 capsule 10/21/17 Isosorbide MONOnitrate (24 HR) 30 mg PO DAILY #30 tab.er.24h 11/19/17 [Imdur] Acetaminophen [Tylenol] 650 mg PO Q6HR PRN tablet 12/14/17 Metoclopramide [Reglan] 5 mg PO TIDAC #15 ud.liq 01/13/18 Collagenase Oint [Santyl] 1 appl TP DAILY #1 tube 02/09/18 Ertapenem [INVanz] 500 mg IVPB QPM #12 vial 02/09/18 Insulin Glargine,Hum.rec.anlog 40 unit SQ HS #0 02/09/18 [Basaglar Kwikpen U-100] Saccharomyces Boulardii [Florastor] 250 mg PO BID #20 capsule 02/09/18 Allergies Allergy/AdvReac Type Severity Reaction Status Date / Time No Known Allergies Allergy Verified 02/03/18 12:01 Limitations: ROS unobtainable due to patients medical condition Past Medical History - Past Medical History Attestation: Yes The following information was validated with the patient. Source: patient Medical history: Reports: COPD, coronary artery disease, CVA, DVT, diabetes, dialysis, GERD, GI bleed, hyperlipidemia, hypertension, peripheral artery disease, other Surgical history: Reports: angioplasty/stent, appendectomy, cholecystectomy, coronary bypass (CABG), hysterectomy, knee replacement, other, IVC filter Psychiatric history: Reports: anxiety, depression, schizophrenia, previous psychiatric hospitalization FLOW NURSE history: Reports: other - Social History Smoking Status: Current every day smoker Smokeless Tobacco Status: No Alcohol use: Reports: none Drug use: Reports: none Physical Exam - General Limitations: altered mental status General appearance: lethargic - Head Head exam: atraumatic, normocephalic, normal inspection - Eye Eye exam: Present: normal appearance, PERRL, EOMI - ENT ENT exam: normal oropharynx, mucous membranes moist, other (oral glucose around lips/mouth) - Neck Neck exam: Present: normal inspection, full ROM, trachea midline - Chest Chest inspection: Present: normal inspection, symmetric chest wall rise - Respiratory Respiratory exam: Present: other (rhonchi bilateral LL) - Cardiovascular Cardiovascular exam: Present: regular rate, normal rhythm, normal heart sounds - Abdominal Exam Abdominal exam: Present: soft, Non-Tender, other (multiple bruises of lower abdomen). Absent: tenderness, distention, guarding, rebound, rigidity - Extremities Exam Extremities exam: Present: normal inspection, full ROM, pedal edema (bilateral LE, pitting). Absent: tenderness - Expanded Neurological Exam Patient oriented to: Absent: person, place, time Coma Scale Eye Opening: To Pain Coma Scale Motor Response: Withdraws to Pain Coma Scale Verbal Response: Incomprehensible Coma Scale Total: 8 - Psychiatric Psychiatric exam: Present: other - Skin Skin exam: Present: warm, dry, intact, normal color Course Course Narrative: IV line was obtained at bedside and patient was given dextrose. After this, patient became more alert, was able to answer person and place but not time. She still appears drowsy. D5 normal saline maintenance fluid was ordered. We will perform glucose check every hour. Patient also sounds rhonchorous on exam. We will obtain a full workup CBC, BMP, urinalysis, troponin, EKG, chest x -ray, CT of the head. Updated: Patient was placed on D5 normal saline, she was also placed on BiPAP due to some increased work of breathing. Chest x-ray showed mild pulmonary interstitial edema but no other psychiatric maladies. Head CT was negative for any acute process. Basic labs showed no major abnormalities except for UTI. Patient is given Rocephin. She is doing well on BiPAP at this time. We were checking glucose every 1 hour, patient did have an episode where she went to 40 and was given another amp of D50. Due to this, patient will need close monitoring in the ICU. Patient was accepted for admission by Dr. Robledo. Chest X-Ray 02/27/18 01:56 IMPRESSION: Findings suggestive of of pulmonary venous congestion and mild pulmonary interstitial edema. Correlate with volume status. Hyperinflated lungs suggestive of underlying COPD. D/ / Drake Coates MD / Drake Coates MD Interpreting Provider: Drake Coates MD Head CT 02/27/18 01:59 IMPRESSION: Stable exam with no acute intracranial abnormality. D/ / Krissy Snowden MD / Krissy Snowden MD Interpreting Provider: Krissy Snowden MD Vital Signs Temperature 96.6 F L 02/27/18 00:45 Pulse Rate 95 02/27/18 00:45 Respiratory Rate 20 02/27/18 00:45 Blood Pressure 123/62 02/27/18 00:45 O2 Sat by Pulse Oximetry 90 02/27/18 00:45 Temperature 96.6 F L 02/27/18 00:45 Pulse Rate 83 02/27/18 03:54 Respiratory Rate 18 02/27/18 03:54 Blood Pressure 125/65 02/27/18 03:54 O2 Sat by Pulse Oximetry 97 02/27/18 03:54 Oxygen Delivery Oxygen Delivery Bipap Medical Decision Making - MDM Narrative Medical decision making narrative: IV line was obtained at bedside and patient was given dextrose. After this, patient became more alert, was able to answer person and place but not time. She still appears drowsy. D5 normal saline maintenance fluid was ordered. We will perform glucose check every hour. Patient also sounds rhonchorous on exam. We will obtain a full workup CBC, BMP, urinalysis, troponin, EKG, chest x -ray, CT of the head. Updated: Patient was placed on D5 normal saline, she was also placed on BiPAP due to some increased work of breathing. Chest x-ray showed mild pulmonary interstitial edema but no other psychiatric maladies. Head CT was negative for any acute process. Basic labs showed no major abnormalities except for UTI. Patient is given Rocephin. She is doing well on BiPAP at this time. We were checking glucose every 1 hour, patient did have an episode where she went to 40 and was given another amp of D50. Due to this, patient will need close monitoring in the ICU. Patient was accepted for admission by Dr. Robledo. - Medical Records Medical records reviewed: Yes I reviewed the patient's medical records. - Lab Data Lab results reviewed: Yes I reviewed the patient's lab results. Result diagrams: 02/27/18 01:13 02/27/18 01:13 Lab Results 02/27/18 02/27/18 02/27/18 Range/Units 00:28 00:29 00:42 WBC (4.3-11.1) K/mcL RBC (3.82-4.97) M/mcL Hgb (11.5-15.4) g/dL Hct (35.3-44.9) % MCV (83.0-100.0) fL MCH (28.0-33.3) pg MCHC (31.6-35.5) g/dL RDW (11.5-14.5) % Plt Count (140-400) K/mcL MPV (9.4-12.4) fL Immature Gran % (0-4) % Seg Neutrophils % % Lymphocytes % % Monocytes % % Eosinophils % % Basophils % % Neutrophils # (1.6-8.9) K/mcL Lymphocytes # (0.6-4.6) K/mcL Monocytes # (0.0-1.3) K/mcL Eosinophils # (0.0-0.6) K/mcL Basophils # (0.0-0.2) K/mcL PT (9.4-12.1) Seconds INR APTT (26.0-36.0) Seconds Sample Site ABG pH (7.32-7.45) pH Units ABG pCO2 (35-45) mmHg ABG pO2 (85-104) mmHg ABG HCO3 (21-27) mEq/L ABG Total CO2 (20-26) mEq/L ABG O2 Saturation (95-98) % ABG Base Excess (-2 to 3) mEq/L Ricardo Test O2 Delivery Device Inspired O2 (1-15=lpm pm90-466=%) Sodium (136-145) mEq/L Potassium (3.5-5.1) mEq/L Chloride (98-107) mEq/L Carbon Dioxide (23-29) mEq/L BUN (8-23) mg/dL Creatinine (0.60-1.20) mg/dL Est GFR ( Amer) (> 60) Est GFR (Non-Af Amer) (> 60) BUN/Creatinine Ratio (6-26) Glucose (70-105) mg/dL POC Glucose 25 L* 33 L* (70-99) mg/dL Calculated Osmolality (280-300) Lactic Acid (0.5-2.2) mmol/L Calcium (8.6-10.3) mg/dL Phosphorus (2.7-4.5) mg/dL Magnesium (1.6-2.6) mg/dL Total Bilirubin (0.3-1.0) mg/dL Direct Bilirubin (0.0-0.2) mg/dL Indirect Bilirubin (0.0-1.2) mg/dL AST (13-39) Units/L ALT (7-52) Units/L Alkaline Phosphatase (34-104) Units/L Troponin I (< 0.04) ng/mL Serum Total Protein (6.4-8.9) g/dL Albumin (3.5-5.7) g/dL Globulin (2.4-3.5) g/dL Albumin/Globulin Ratio (1.1-2.2) Urine Color Yellow (Yellow) Urine Clarity Cloudy A (Clear) Urine pH 6.0 (5.0-8.0) pH Units Ur Specific Tilly 1.015 (1.010-1.025) Urine Protein 100 H (Neg-Trace) mg/dL Urine Glucose (UA) Normal (Normal) mg/dL Urine Ketones Negative (Negative) mg/dL Urine Blood Small H (Negative) Urine Nitrite Negative (Negative) Urine Bilirubin Negative (Negative) Urine Urobilinogen Normal (Normal) mg/dL Ur Leukocyte Esterase Large H (Negative) Urine Microscopic RBC 30-50 H (0-3) per hpf Urine Microscopic WBC TNTC H (0-3) per hpf Ur Squamous Epith Cells None Seen (None-Few) per lpf Urine Bacteria Few (None-Few) per hpf Hyaline Casts None Seen (None-Few) per lpf Urine Yeast Test Not Performed Ur Culture Indicated? YES A (NO) 02/27/18 02/27/18 02/27/18 Range/Units 00:51 01:13 01:13 WBC 10.9 (4.3-11.1) K/mcL RBC 3.43 L (3.82-4.97) M/mcL Hgb 9.3 L (11.5-15.4) g/dL Hct 30.4 L (35.3-44.9) % MCV 88.6 (83.0-100.0) fL MCH 27.1 L (28.0-33.3) pg MCHC 30.6 L (31.6-35.5) g/dL RDW 15.8 H (11.5-14.5) % Plt Count 165 (140-400) K/mcL MPV 10.8 (9.4-12.4) fL Immature Gran % 0.8 (0-4) % Seg Neutrophils % 78.7 % Lymphocytes % 14.0 % Monocytes % 4.8 % Eosinophils % 1.5 % Basophils % 0.2 % Neutrophils # 8.6 (1.6-8.9) K/mcL Lymphocytes # 1.5 (0.6-4.6) K/mcL Monocytes # 0.5 (0.0-1.3) K/mcL Eosinophils # 0.2 (0.0-0.6) K/mcL Basophils # 0.0 (0.0-0.2) K/mcL PT 10.7 (9.4-12.1) Seconds INR 1.0 APTT 33.8 (26.0-36.0) Seconds Sample Site ABG pH (7.32-7.45) pH Units ABG pCO2 (35-45) mmHg ABG pO2 (85-104) mmHg ABG HCO3 (21-27) mEq/L ABG Total CO2 (20-26) mEq/L ABG O2 Saturation (95-98) % ABG Base Excess (-2 to 3) mEq/L Ricardo Test O2 Delivery Device Inspired O2 (1-15=lpm by65-943=%) Sodium (136-145) mEq/L Potassium (3.5-5.1) mEq/L Chloride (98-107) mEq/L Carbon Dioxide (23-29) mEq/L BUN (8-23) mg/dL Creatinine (0.60-1.20) mg/dL Est GFR ( Amer) (> 60) Est GFR (Non-Af Amer) (> 60) BUN/Creatinine Ratio (6-26) Glucose (70-105) mg/dL POC Glucose 84 (70-99) mg/dL Calculated Osmolality (280-300) Lactic Acid (0.5-2.2) mmol/L Calcium (8.6-10.3) mg/dL Phosphorus (2.7-4.5) mg/dL Magnesium (1.6-2.6) mg/dL Total Bilirubin (0.3-1.0) mg/dL Direct Bilirubin (0.0-0.2) mg/dL Indirect Bilirubin (0.0-1.2) mg/dL AST (13-39) Units/L ALT (7-52) Units/L Alkaline Phosphatase (34-104) Units/L Troponin I (< 0.04) ng/mL Serum Total Protein (6.4-8.9) g/dL Albumin (3.5-5.7) g/dL Globulin (2.4-3.5) g/dL Albumin/Globulin Ratio (1.1-2.2) Urine Color (Yellow) Urine Clarity (Clear) Urine pH (5.0-8.0) pH Units Ur Specific Tilly (1.010-1.025) Urine Protein (Neg-Trace) mg/dL Urine Glucose (UA) (Normal) mg/dL Urine Ketones (Negative) mg/dL Urine Blood (Negative) Urine Nitrite (Negative) Urine Bilirubin (Negative) Urine Urobilinogen (Normal) mg/dL Ur Leukocyte Esterase (Negative) Urine Microscopic RBC (0-3) per hpf Urine Microscopic WBC (0-3) per hpf Ur Squamous Epith Cells (None-Few) per lpf Urine Bacteria (None-Few) per hpf Hyaline Casts (None-Few) per lpf Urine Yeast Ur Culture Indicated? (NO) 02/27/18 02/27/18 02/27/18 Range/Units 01:13 01:13 01:20 WBC (4.3-11.1) K/mcL RBC (3.82-4.97) M/mcL Hgb (11.5-15.4) g/dL Hct (35.3-44.9) % MCV (83.0-100.0) fL MCH (28.0-33.3) pg MCHC (31.6-35.5) g/dL RDW (11.5-14.5) % Plt Count (140-400) K/mcL MPV (9.4-12.4) fL Immature Gran % (0-4) % Seg Neutrophils % % Lymphocytes % % Monocytes % % Eosinophils % % Basophils % % Neutrophils # (1.6-8.9) K/mcL Lymphocytes # (0.6-4.6) K/mcL Monocytes # (0.0-1.3) K/mcL Eosinophils # (0.0-0.6) K/mcL Basophils # (0.0-0.2) K/mcL PT (9.4-12.1) Seconds INR APTT (26.0-36.0) Seconds Sample Site R Radial ABG pH 7.33 (7.32-7.45) pH Units ABG pCO2 52 H (35-45) mmHg ABG pO2 64 L (85-104) mmHg ABG HCO3 27 (21-27) mEq/L ABG Total CO2 29 H (20-26) mEq/L ABG O2 Saturation 90 L (95-98) % ABG Base Excess 1 (-2 to 3) mEq/L Ricardo Test Positive O2 Delivery Device Cannula Inspired O2 28.0 (1-15=lpm iu59-770=%) Sodium 138 (136-145) mEq/L Potassium 3.4 L (3.5-5.1) mEq/L Chloride 103 (98-107) mEq/L Carbon Dioxide 24 (23-29) mEq/L BUN 30 H (8-23) mg/dL Creatinine 2.85 H (0.60-1.20) mg/dL Est GFR ( Amer) 20 L (> 60) Est GFR (Non-Af Amer) 17 L (> 60) BUN/Creatinine Ratio 11 (6-26) Glucose 51 L (70-105) mg/dL POC Glucose (70-99) mg/dL Calculated Osmolality 290 (280-300) Lactic Acid 0.9 (0.5-2.2) mmol/L Calcium 7.9 L (8.6-10.3) mg/dL Phosphorus 7.6 H (2.7-4.5) mg/dL Magnesium 1.7 (1.6-2.6) mg/dL Total Bilirubin 0.3 (0.3-1.0) mg/dL Direct Bilirubin 0.1 (0.0-0.2) mg/dL Indirect Bilirubin 0.2 (0.0-1.2) mg/dL AST 18 (13-39) Units/L ALT 13 (7-52) Units/L Alkaline Phosphatase 246 H (34-104) Units/L Troponin I 0.05 H* (< 0.04) ng/mL Serum Total Protein 6.2 L (6.4-8.9) g/dL Albumin 3.0 L (3.5-5.7) g/dL Globulin 3.2 (2.4-3.5) g/dL Albumin/Globulin Ratio 0.9 L (1.1-2.2) Urine Color (Yellow) Urine Clarity (Clear) Urine pH (5.0-8.0) pH Units Ur Specific Tilly (1.010-1.025) Urine Protein (Neg-Trace) mg/dL Urine Glucose (UA) (Normal) mg/dL Urine Ketones (Negative) mg/dL Urine Blood (Negative) Urine Nitrite (Negative) Urine Bilirubin (Negative) Urine Urobilinogen (Normal) mg/dL Ur Leukocyte Esterase (Negative) Urine Microscopic RBC (0-3) per hpf Urine Microscopic WBC (0-3) per hpf Ur Squamous Epith Cells (None-Few) per lpf Urine Bacteria (None-Few) per hpf Hyaline Casts (None-Few) per lpf Urine Yeast Ur Culture Indicated? (NO) - Radiology Data Radiology results reviewed: Yes I reviewed the patient's radiology results. Chest X-Ray 02/27/18 01:56 IMPRESSION: Findings suggestive of of pulmonary venous congestion and mild pulmonary interstitial edema. Correlate with volume status. Hyperinflated lungs suggestive of underlying COPD. D/ / Drake Coates MD / Drake Coates MD Interpreting Provider: Drake Coates MD Head CT 02/27/18 01:59 IMPRESSION: Stable exam with no acute intracranial abnormality. D/ / Krissy Snowden MD / Krissy Snowden MD Interpreting Provider: Krissy Snowden MD - EKG Data EKG #1 EKG attestation: Yes I reviewed and interpreted this EKG. EKG results narrative: Feb 27 2018 at 01:04. NSR. Rate 92, VT 162, QRS 95, QTC 451. Normal axis. No acute ST elevation or depression. Attestation Statement - Attestation Attestation: I examined this patient and my medical decision-making was reviewed with the Resident Physician. I agree with the documented findings, disposition and treatment plan as described except to the extent set forth below. Findings consistent with aspiration, recurrent hypoglycemia, unresponsive. Patient was placed on BiPAP for respiratory failure associated with reoccurring hypoxia from aspiration and hypoglycemia. The patient will be admitted for further management and rule out possible sepsis and other causes of possible hypoglycemia including insulin overdose. The patient was started on dextrose infusion. She is now following commands and mentating appropriately. CT scan of the head shows no acute findings. I spent greater than 35 minutes of critical care time resuscitating this acutely ill patient suffering from hypoxia, hypoglycemia. This was excluding billable procedures.
[2018-02-27] MEDS ORDERED: D5% in 0.9% NACL 1,000 ML IVC SCH (00:45)
[2018-02-27 00:52] LABS: Bilirubin,Urine Negative (Negative); Blood,Urine Small (Negative); Clarity,Urine Cloudy (Clear); Color,Urine Yellow (Yellow); Glucose,Urine (UA) Normal (Normal); Ketones,Urine Negative (Negative); Leukocyte Esterase,Urine Large (Negative); Nitrite,Urine Negative (Negative); Protein,Urine 100 mg/dL (Neg-Trace); Specific Gravity,Urine 1.015 (1.010-1.025); Urobilinogen,Urine Normal (Normal)
[2018-02-27 00:54] LABS: Hyaline Casts,Urine None Seen per lpf (None-Few); RBC,Urine 30-50 per hpf (0-3); Squamous Epithelial Cell,Urine None Seen per lpf (None-Few); WBC,Urine TNTC per hpf (0-3)
[2018-02-27 01:05] LABS: Bacteria,Urine Few per hpf (None-Few)
[2018-02-27 01:24] LABS: ABG Base Excess 1 mEq/L (-2 to 3); ABG HCO3 27 mEq/L (21-27); ABG Oxygen Saturation 90 % (95-98); ABG PCO2 52 mmHg (35-45); ABG PH 7.33 pH Units (7.32-7.45); ABG PO2 64 mmHg (85-104); ABG TCO2 29 mEq/L (20-26)
[2018-02-27 01:29] LABS: Basophils % 0.2 %; Eosinophils # 0.2 K/mcL (0.0-0.6); Eosinophils % 1.5 %; Hematocrit 30.4 % (35.3-44.9); Hemoglobin 9.3 g/dL (11.5-15.4); Immature Granulocytes % 0.8 % (0-4); Lymphocytes # 1.5 K/mcL (0.6-4.6); Mean Corpuscular HGB Conc 30.6 g/dL (31.6-35.5); Mean Corpuscular Hemoglobin 27.1 pg (28.0-33.3); Mean Corpuscular Volume 88.6 fL (83.0-100.0); Mean Platelet Volume 10.8 fL (9.4-12.4); Monocytes # 0.5 K/mcL (0.0-1.3); Monocytes % 4.8 %; Neutrophils # 8.6 K/mcL (1.6-8.9); Platelet Count 165 K/mcL (140-400); Red Blood Count 3.43 M/mcL (3.82-4.97); Red Cell Distribution Width 15.8 % (11.5-14.5); Segmented Neutrophils % 78.7 %
[2018-02-27 01:34] LABS: Prothrombin Time 10.7 Seconds (9.4-12.1)
[2018-02-27 01:37] LABS: Activated Partial Thrombo Time 33.8 Seconds (26.0-36.0)
[2018-02-27 01:56] LABS: Albumin/Globulin Ratio 0.9 (1.1-2.2); Bilirubin,Direct 0.1 mg/dL (0.0-0.2); Bilirubin,Indirect 0.2 mg/dL (0.0-1.2); Bilirubin,Total 0.3 mg/dL (0.3-1.0); Calcium 7.9 mg/dL (8.6-10.3); Globulin 3.2 g/dL (2.4-3.5); Magnesium 1.7 mg/dL (1.6-2.6); Phosphorous 7.6 mg/dL (2.7-4.5); Potassium 3.4 mEq/L (3.5-5.1); Total Protein 6.2 g/dL (6.4-8.9); Troponin I 0.05 ng/mL (< 0.04)
[2018-02-27] MEDS ORDERED: cefTRIAXone 2,000 MG in Water for inj. (sterile) 20 ML 20 ML IVP ONE (03:51)
[2018-02-27] MEDS ORDERED: *HR* Dextrose 50 % in Water (Syg) 50 ML SYRINGE IVP ONE (03:55)
[2018-02-27] MEDS ORDERED: Furosemide 20 MG/2 ML VIAL IVP ONE (05:20)
[2018-02-27] MEDS: Ipratropium/Albuterol Neb 3 ML IH SCH ×4 (05:27→23:12)
[2018-02-27] MEDS ORDERED: Potassium Chloride 10 MEQ in D5% in 0.9% NACL 1,000 ML IVC SCH ×2 (05:30→06:20)
[2018-02-27] MEDS ORDERED: Acetaminophen 325 MG TABLET PO PRN (06:21)
[2018-02-27] MEDS ORDERED: Naloxone 0.4 MG/ML INJ IVP PRN (06:21)
--- NOTE | 2018-02-27 06:26 | Internal Med History&Physical ---
<Luis Tate - Last Filed: 02/27/18 06:09> Date of Encounter: 02/27/18 Time of Encounter: 06:00 Internal Medicine - H&P: HPI Chief complaint: Confusion Admitted From: Emergency Dept Plans for Post Hospital Care: Home History of present illness: Ms. Riley is a 62 year old female PMHx HTN, hyperlipidemia, DM, CAD, on HD MWF presents today with hypoglycemia in the 30s. She says she has been using her insulin as instructed and eating well. Family called EMS when they noted her glucose = 30s. The patient has also had difficulty voiding the last few months. She denies dysuria or hematuria. She has had multiple hospitalizations this year for both hypoglycemia and hyperglycemia. Diabetes is overall poorly controlled. She denies f/c/n/v, CP, dizziness, vision changes, headache, lightheadedness, cough, abdominal pain. Does use 2L Oxygen NC at home, currently on 3.5L. Improved SOB with oxygen. Past Med Surg Social Fam HX - Past Medical History Medical history: COPD, coronary artery disease, CVA, DVT, diabetes, dialysis, GERD, GI bleed, hyperlipidemia, hypertension, peripheral artery disease, other Psychiatric history: anxiety, depression, schizophrenia, previous psychiatric hospitalization - Past Surgical History Surgical History: angioplasty/stent, appendectomy, cholecystectomy, coronary bypass (CABG), hysterectomy, knee replacement, other, IVC filter - Social History Smoking Status: Current every day smoker Smokeless Tobacco Status: No Alcohol use: none Drug use: none - Family History Father Family Member Ethnicity: Non- Living Status: Hx Family Cardiac Disorders: Yes (CAD, VA) Hx Family Cancer: Yes (Polycythemia) Hx Family Endocrine Disorder: Yes (DM) Mother Family Member Ethnicity: Non- Living Status: Still Living Hx Family Cardiac Disorders: Yes Hx Family Respiratory Disorders: Yes (End stage COPD) Brother Adopted: No Family Member Ethnicity: Non- Living Status: Still Living Hx Family Cardiac Disorders: No Hx Family Respiratory Disorders: No Hx Family Cancer: No Hx Family GI Disorders: No Hx Family Endocrine Disorder: No Hx Family Neuromuscular Disorders: No Hx Family Neurologic Disorders: No Hx Family HEENT Disorders: No Hx Family Autoimmune Disorders: No Sister Adopted: No Family Member Ethnicity: Non- Living Status: Still Living Hx Family Cardiac Disorders: Yes Hx Family Respiratory Disorders: No Hx Family Cancer: No Hx Family GI Disorders: No Hx Family Endocrine Disorder: Yes Hx Family Neuromuscular Disorders: No Hx Family Neurologic Disorders: No Hx Family HEENT Disorders: No Hx Family Autoimmune Disorders: No Internal Medicine - H&P: Meds Omeprazole [PriLOSEC] 20 mg PO DAILY 05/11/15 [History] Colestipol HCl [Colestid] 1 gm PO BID 06/12/15 [History] Carvedilol 12.5 mg PO BID 10/28/15 [History] Calcium Acetate [Phos-LO] 1,334 mg PO TIDWM 09/06/16 [History] Folic Acid/Vit Bcomp,C [Renal Vitamin Tablet] 0.8 mg PO DAILY 04/15/17 [History] ARIPiprazole [Abilify] 10 mg PO DAILY 09/13/17 [History] Aspirin Enteric Coated [Aspirin EC] 81 mg PO DAILY 09/13/17 [History] Budesonide/Formoterol 160/4.5 [Symbicort 160/4.5] 2 puff IH BIDR 09/13/17 [ History] Cholecalciferol (Vitamin D3) [Vitamin D3] 50,000 unit PO TH 09/13/17 [History] OxyCODONE/APAP 10/325 [Percocet 10/325 MG] 1 tab PO Q6H PRN 09/13/17 [History] Sennosides [Senna] 8.6 mg PO BID PRN 09/13/17 [History] Sevelamer [Renvela] 800 mg PO TID 09/13/17 [History] Albuterol Neb [AccuNeb] 0.63 mg IH Q6H PRN 10/18/17 [History] Gabapentin [Neurontin] 100 mg PO TID #60 capsule 10/21/17 [Rx] Collagenase Oint [Santyl] 1 appl TP DAILY 11/11/17 [History] Oxybutynin [Ditropan] 5 mg PO TID 11/11/17 [History] Isosorbide MONOnitrate (24 HR) [Imdur] 30 mg PO DAILY #30 tab.er.24h 11/19/17 [ Rx] Insulin LISPRO [Humalog Kwikpen U-100] 0 unit SQ ACHS 11/25/17 [History] Acetaminophen [Tylenol] 650 mg PO Q6HR PRN tablet 12/14/17 [Rx] Amitriptyline HCl 100 mg PO HS 12/22/17 [History] Morphine Sulfate SR (12 HR) [MS Contin] 30 mg PO Q12HR 12/22/17 [History] Rosuvastatin [Crestor] 10 mg PO HS 12/22/17 [History] amLODIPine [Norvasc] 5 mg PO DAILY 12/30/17 [History] Metoclopramide [Reglan] 5 mg PO TIDAC #15 ud.liq 01/13/18 [Rx] Clopidogrel [Plavix] 75 mg PO DAILY 02/03/18 [History] Collagenase Oint [Santyl] 1 appl TP DAILY #1 tube 02/09/18 [Rx] Ertapenem [INVanz] 500 mg IVPB QPM #12 vial 02/09/18 [Rx] Insulin Glargine,Hum.rec.anlog [Basaglar Kwikpen U-100] 40 unit SQ HS #0 [Rx] Saccharomyces Boulardii [Florastor] 250 mg PO BID #20 capsule 02/09/18 [Rx] 3 Allergy/AdvReac Type Severity Reaction Status Date / Time No Known Allergies Allergy Verified 02/03/18 12:01 All Systems PM: A 10-system review of systems was performed and is negative for pertinent findings except as documented above in the HPI. - Constitutional Constitutional: as per HPI, no chills, no fever(s), no night sweats - EENT Eyes: no change in vision, no discharge, no pain, no photophobia Ears: no ear discharge, no ear pain, no tinnitus Nose, mouth and throat: no dysphagia, no nasal discharge, no neck pain, no sore throat - Cardiovascular Cardiovascular ROS IM: no chest pain, no diaphoresis, no dyspnea, no lightheadedness, no palpitations, no syncope - Respiratory Respiratory: no cough, no dyspnea, no wheezing, no excessive phlegm production - Gastrointestinal Gastrointestinal: no abdominal pain, no diarrhea, no hematemesis, no hematochezia, no melena, no nausea, no vomiting - Genitourinary Genitourinary: no change in urinary stream, no dysuria, no flank pain, no hematuria - Musculoskeletal Musculoskeletal ROS IM: no numbness, no tingling - Integumentary Integumentary IM: no rash, no unusual bruising - Neurological Neurological ROS: no confusion, no convulsions, no focal weakness, no numbness, no tingling, no tremor(s) - Hematologic/Lymphatic Hematologic/Lymphatic: no easy bruising - Constitutional Vitals: Temp Pulse Resp BP Pulse Ox 96.6 F L 83 18 128/74 96 02/27/18 00:45 02/27/18 03:54 02/27/18 05:46 02/27/18 05:46 02/27/18 05:46 General appearance: Present: A&O X 3, no acute distress, obese - Head Head exam: Present: atraumatic, normocephalic - Eye Eye exam: Present: EOMI, conjuntiva pink, sclera anicteric - Neck Neck exam general surgery: Present: supple, trachea midline. Absent: lymphadenopathy - Respiratory Respiratory exam: Present: CTAB. Absent: accessory muscle use, rales, rhonchi, wheezes Additional comments: On 3.5L NC - Cardiovascular Cardiovascular exam: Present: RRR, +S1, +S2. Absent: diastolic murmur, gallop, rubs, systolic murmur - GI/Abdominal GI/Abdominal exam: Present: normal bowel sounds, soft, no peritoneal signs. Absent: distended, tenderness Additional comments: Pereira bag with clear yellow urine. - Extremities Exam Extremities exam: Present: warm, radial pulses palpable and symmetrical. Absent : calf tenderness, cyanotic, pedal edema Additional comments: chronic venous stasis BL - Neurological Exam Neurological exam: Present: CN II-XII intact, oriented X3, no focal deficits. Absent: pronater drift, facial droop, speech deficit - Skin Skin exam: Present: dry, intact Internal Med - H&P Results - Labs CBC & Chem 7: 02/27/18 01:13 02/27/18 01:13 Labs: Short CBC 02/27/18 Range/Units 01:13 WBC 10.9 (4.3-11.1) K/mcL Hgb 9.3 L (11.5-15.4) g/dL Hct 30.4 L (35.3-44.9) % Plt Count 165 (140-400) K/mcL Neutrophils # 8.6 (1.6-8.9) K/mcL BMP 02/27/18 01:13 Sodium 138 Potassium 3.4 L Chloride 103 Carbon Dioxide 24 BUN 30 H Creatinine 2.85 H Glucose 51 L Calcium 7.9 L Cardiac Enzymes 02/27/18 Range/Units 01:13 Troponin I 0.05 H* (< 0.04) ng/mL Liver Function 02/27/18 Range/Units 01:13 Total Bilirubin 0.3 (0.3-1.0) mg/dL Direct Bilirubin 0.1 (0.0-0.2) mg/dL AST 18 (13-39) Units/L ALT 13 (7-52) Units/L Alkaline Phosphatase 246 H (34-104) Units/L Albumin 3.0 L (3.5-5.7) g/dL Urine 02/27/18 Range/Units 00:42 Urine Color Yellow (Yellow) Urine Clarity Cloudy A (Clear) Urine pH 6.0 (5.0-8.0) pH Units Ur Specific [place] 1.015 (1.010-1.025) Urine Protein 100 H (Neg-Trace) mg/dL Urine Glucose (UA) Normal (Normal) mg/dL - ABG Interpretation ABG results: 02/27/18 01:20 ABG pH 7.33 ABG pCO2 52 H ABG pO2 64 L ABG HCO3 27 ABG Total CO2 29 H ABG O2 Saturation 90 L ABG Base Excess 1 - Impressions ITS Impressions Chest X-Ray 02/27/18 01:56 IMPRESSION: Findings suggestive of pulmonary venous congestion and mild pulmonary interstitial edema. Correlate with volume status. Hyperinflated lungs suggestive of underlying COPD. D/ / 02/27/2018 05:43:50 Drake Coates MD / [facility] Interpreting Provider: Drake Coates MD Head CT 02/27/18 01:59 IMPRESSION: Stable exam with no acute intracranial abnormality. D/ / Krissy Snowden MD / Krissy Snowden MD Interpreting Provider: Krissy Snowden MD - Assessment and plan (1) Acute metabolic encephalopathy Current Visit: Yes Status: Acute Assessment and plan: likely secondary to hypoglycemia vs UTI. Patient is improved Continue with D5 fluids. Closely monitor POC glucose with q1 checks. UA + , pending UCx and BCx. Continue with ceftriaxone. Continue with pereira due to urinary retention. Monitor with am labs, VSS, neuro checks. Consider ICU admission due to labile glucose levels requiring close monitoring. Hold Insulin in the setting of hypoglycemia NPO for now. (2) Hypoglycemia Current Visit: Yes Status: Acute Assessment and plan: Patient has symptomatic hypoglycemia. Improved with D5 but POC glucose unstable. Low threshold to d/c D5. Monitor closely with Q1 checks. (3) Elevated troponin Current Visit: Yes Status: Acute Assessment and plan: Denies chest pain. troponin = 0.05, intermittently elevated. Continue trending. Consider further work-up and cardiology consult if patient becomes symptomatic. (4) UTI (urinary tract infection) Current Visit: Yes Status: Acute Assessment and plan: UA + Pending UCx, BCx. Continue with Ceftriaxone. Qualifiers: Qualified Code(s): N39.0 - Urinary tract infection, site not specified; R31.9 - Hematuria, unspecified (5) DVT prophylaxis Current Visit: No Status: Acute Assessment and plan: subq heparin. (6) Hypokalemia Current Visit: Yes Status: Acute Assessment and plan: Infusion with D5 (7) CKD stage 4 due to type 2 diabetes mellitus Current Visit: No Status: Acute Assessment and plan: Patient reports difficulty voiding for the last few months. On HD MWF. Creatinine at baseline. Continue with pereira. Consider consult nephrology if kidney function worsens. (8) Diabetes Current Visit: Yes Status: Acute Assessment and plan: Diabetes is poorly controlled. Multiple hospitalizations for poor glycemic control. Last A1C 02/01/18 = 8.8 Hold insulin due to hypoglycemia. Continue to closely monitor glucose levels with q1 POC checks. Qualifiers: Diabetes mellitus type: type 2 Qualified Code(s): E11.9 - Type 2 diabetes mellitus without complications; Z79.4 - custodial (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 of insulin - Time Spent With Patient Total time spent is greater than 50% in coordination of care (as documented) at patient's floor/unit and/or counseling patient: Greater than 35 minutes <Luis Manuel Robledo - Last Filed: 02/27/18 07:13> Date of Encounter: 02/27/18 Internal Medicine - H&P: HPI History of present illness: Ms. Riley is a 62 year old female All Systems PM: A 10-system review of systems was performed and is negative for pertinent findings except as documented above in the HPI. - Constitutional Vitals: Temp Pulse Resp BP Pulse Ox 96.6 F L 83 18 149/70 97 02/27/18 00:45 02/27/18 03:54 02/27/18 06:43 02/27/18 06:43 02/27/18 06:43 Internal Med - H&P Results - Labs CBC & Chem 7: 02/27/18 01:13 02/27/18 01:13 - Attending Attestation I have seen patient and performed my own physical examination on 02/27/18. I have discussed this case with the resident physician. I agree with his plan as documented in his history and physical note. Briefly, patient presented to ED with acute encephalopathy likely secondary to hypoglycemia and possibly UTI. Patient acutally more awake by the time I saw her. I could not get much history from her because she is on BiPAP. We will continue Q1H accuchecks, as blood glucose improved, but then dropped again. It will be a difficult balancing act of running D5 IVF and not fluid overloading her. I gave small dose lasix 10 mg once. I believe that patient is a high risk for deterioration. I have discussed case with ED physician, and we both agree that patient needs to go to ICU for close monitoring. If her blood glucose normalized and stays stable, we can low threshold for transfer out of ICU. Latest blood glucose is still only 80, and patient is still somnolent. We will admit to ICU and monitor closely. Patient has multiple comorbidities and is hospitalized here frequently. Recheck labwork in AM. - Assessment and plan (1) DVT prophylaxis Current Visit: No Status: Acute (2) CKD stage 4 due to type 2 diabetes mellitus Current Visit: No Status: Acute (3) Hypoglycemia Current Visit: Yes Status: Acute (4) Elevated troponin Current Visit: Yes Status: Acute (5) UTI (urinary tract infection) Current Visit: Yes Status: Acute Qualifiers: Qualified Code(s): N39.0 - Urinary tract infection, site not specified; R31.9 - Hematuria, unspecified (6) Acute metabolic encephalopathy Current Visit: Yes Status: Acute (7) Hypokalemia Current Visit: Yes Status: Acute (8) Diabetes Current Visit: Yes Status: Acute Qualifiers: Diabetes mellitus type: type 2 Qualified Code(s): E11.9 - Type 2 diabetes mellitus without complications; Z79.4 - custodial (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 of insulin - Time Spent With Patient Total time spent is greater than 50% in coordination of care (as documented) at patient's floor/unit and/or counseling patient:
[2018-02-27] MEDS: cefTRIAXone 1,000 MG in Water for inj. (sterile) 20 ML 10 ML IVP SCH (10:06)
[2018-02-27] MEDS ORDERED: Albuterol Neb 0.63 MG/3 ML VIAL IH PRN (11:50)
[2018-02-27] MEDS ORDERED: (Colestipol Hcl [Colestid] 1 GM) PO SCH (12:00)
[2018-02-27] MEDS: Budesonide/Formoterol 160/4.5 MDI IH SCH ×2 (13:06→23:06)
--- NOTE | 2018-02-27 14:13 | Internal Med Progress Note ---
Date of Encounter: 02/27/18 Time of Encounter: 12:00 - Assessment and plan (1) Hypoglycemia Current Visit: Yes Status: Acute Assessment and plan: Improved Cont holding Insulin coverage for now D/c IVF Tolerating PO intkae well Q4hr accuchekcs for today Medically stable.. so will transfer to tele today (2) Acute metabolic encephalopathy Current Visit: Yes Status: Acute Assessment and plan: likely secondary to hypoglycemia Improved now Urne cx from 02/25 - no growth No need of abx (3) ESRD (end stage renal disease) on dialysis Current Visit: No Status: Chronic Assessment and plan: Missed Wednesday HD however she does not look volume over load at this point Nephro consulted D/C IVF cont close monitoring (4) UTI (urinary tract infection) Current Visit: Yes Status: Acute Assessment and plan: UA + Urine cx from 02/25 - no growth Blood cx - P No need of abx.. will d/c them Qualifiers: Qualified Code(s): N39.0 - Urinary tract infection, site not specified; R31.9 - Hematuria, unspecified (5) Elevated troponin Current Visit: Yes Status: Acute Assessment and plan: Slightly elevated and stable @ 0.05 Denies chest pain Mostly demand ischemia no further work up needed (6) Hypokalemia Current Visit: Yes Status: Acute Assessment and plan: Replaced will check labs now (7) Diabetes Current Visit: Yes Status: Acute Assessment and plan: Diabetes is poorly controlled. Multiple hospitalizations for poor glycemic control. Last A1C 02/01/18 = 8.8 continue holding insulin due to hypoglycemia. Continue to closely monitor glucose levels with Q4hr POC checks. 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 - Time Spent With Patient Total time spent is greater than 50% in coordination of care (as documented) at patient's floor/unit and/or counseling patient: - Subjective Interval history: Ms. Riley is a 62 year old female PMHx HTN, hyperlipidemia, DM, CAD, Recurrent UTI with ESBLon HD MWF presents to ER with hypoglycemia in the 30s. She says she has been using her insulin as instructed and eating well. Family called EMS when they noted her glucose in 30s. The patient has also had difficulty voiding the last few months. She denies dysuria or hematuria. She has had multiple hospitalizations this year for both hypoglycemia and hyperglycemia. Diabetes is overall poorly controlled. She denies f/c/n/v, CP, dizziness, vision changes, headache, lightheadedness, cough, abdominal pain. Does use 2L Oxygen NC at home. She is currently on 4 lit O2. She is alert, awake and O x 3. Denied any CP / SOB. States she is feeling better, and wants to go home. She also mentioned she missed HD on Wednesday. However she does not look any volume overload at this point. - Constitutional Vitals: Temp Pulse Resp BP Pulse Ox 96.6 F L 87 24 185/57 99 02/27/18 00:45 02/27/18 10:00 02/27/18 10:00 02/27/18 10:00 02/27/18 10:00 General appearance: Present: A&O X 3, no acute distress, obese - Head Head exam: Present: atraumatic, normal inspection - Neck Neck exam general surgery: Present: supple - Respiratory Respiratory exam: Present: decreased breath sounds. Absent: rales, respiratory distress, rhonchi, wheezes - Cardiovascular Cardiovascular exam: Present: RRR, +S1, +S2. Absent: tachycardia - GI/Abdominal GI/Abdominal exam: Present: normal bowel sounds, soft. Absent: rebound, rigid, tenderness - Extremities Exam Extremities exam: Present: pedal edema. Absent: calf tenderness, tenderness - Back Exam Back exam: Absent: CVA tenderness (L), CVA tenderness (R) - Neurological Exam Neurological exam: Present: alert, oriented X3 - Psychiatric Psychiatric exam: Present: normal affect, normal mood Internal Medicine: Result - Labs CBC & Chem 7: 02/27/18 01:13 02/27/18 01:13 Labs: Cardiac Enzymes 02/27/18 Range/Units 10:23 Troponin I 0.04 H* (< 0.04) ng/mL - ABG Interpretation ABG results: ABG ABG pH 7.33 pH Units (7.32-7.45) 02/27/18 01:20 ABG pCO2 52 mmHg (35-45) H 02/27/18 01:20 ABG pO2 64 mmHg (85-104) L 02/27/18 01:20 ABG O2 Saturation 90 % (95-98) L 02/27/18 01:20 PT/INR, D-dimer PT 10.7 Seconds (9.4-12.1) 02/27/18 01:13 Consult Discharge Plan - Plan Referrals: Tristen Quintana MD [Primary Care Provider] -
[2018-02-27] MEDS ORDERED: *HR* OxyCODONE/APAP 10/325 TABLET PO PRN (14:21)
[2018-02-27] MEDS: Calcium Acetate 667 MG CAPSULE PO SCH ×2 (14:22→17:06)
[2018-02-27] MEDS: Gabapentin 100 MG CAPSULE PO SCH ×3 (14:23→21:32)
[2018-02-27] MEDS: ARIPiprazole 10 MG TABLET PO SCH (14:29)
[2018-02-27] MEDS: *HR* Morphine Sulfate SR (12 HR) 30 MG TABLET.ER PO SCH ×2 (15:19→20:41)
[2018-02-27] MEDS: Aspirin Enteric Coated 81 MG Tablet PO SCH (15:42)
[2018-02-27] MEDS: amLODIPine 5 MG TABLET PO SCH (15:42)
[2018-02-27 16:25] LABS: Calcium 7.9 mg/dL (8.6-10.3); Magnesium 1.6 mg/dL (1.6-2.6); Potassium 4.3 mEq/L (3.5-5.1)
[2018-02-27] MEDS: *HR* Heparin 5,000 UNIT/ML VIAL SQ SCH (17:06)
[2018-02-27] MEDS ORDERED: *HR* Morphine Sulfate SR (12 HR) 30 MG TABLET.ER PO SCH (18:00)
[2018-02-27] MEDS: Lactobacillus 1 EACH CAP.SPRINK PO SCH (20:41)
[2018-02-28] MEDS: Ipratropium/Albuterol Neb 3 ML IH SCH ×5 (03:54→23:13)
[2018-02-28] MEDS ORDERED: *HR* Dextrose 50 % in Water (Syg) 50 ML SYRINGE ONE (04:28)
[2018-02-28] MEDS ORDERED: Dextrose Gel 15 GM/37.5 ML TUBE PO PRN ×2 (04:42)
[2018-02-28] MEDS ORDERED: D5% in Water 1,000 ML IVC PRN (04:42)
[2018-02-28] MEDS: *HR* Heparin 5,000 UNIT/ML VIAL SQ SCH ×2 (05:58→18:19)
[2018-02-28] MEDS ORDERED: 0.9 % Sodium Chloride 250 ML IVC PRN (07:09)
[2018-02-28 07:24] LABS: Basophils % 0.4 %; Eosinophils # 0.2 K/mcL (0.0-0.6); Eosinophils % 2.1 %; Hematocrit 30.1 % (35.3-44.9); Hemoglobin 9.2 g/dL (11.5-15.4); Immature Granulocytes % 0.9 % (0-4); Lymphocytes # 1.6 K/mcL (0.6-4.6); Lymphocytes % 21.6 %; Magnesium 1.6 mg/dL (1.6-2.6); Mean Corpuscular HGB Conc 30.6 g/dL (31.6-35.5); Mean Corpuscular Hemoglobin 28.2 pg (28.0-33.3); Mean Corpuscular Volume 92.3 fL (83.0-100.0); Mean Platelet Volume 10.9 fL (9.4-12.4); Monocytes # 0.4 K/mcL (0.0-1.3); Monocytes % 5.7 %; Neutrophils # 5.2 K/mcL (1.6-8.9); Platelet Count 152 K/mcL (140-400); Potassium 4.7 mEq/L (3.5-5.1); Red Blood Count 3.26 M/mcL (3.82-4.97); Red Cell Distribution Width 15.9 % (11.5-14.5); Segmented Neutrophils % 69.3 %
--- NOTE | 2018-02-28 08:35 | Nephrology Consult Note ---
Date of Encounter: 02/28/18 Time of Encounter: 08:26 Assessment and Plan (1) End-stage renal disease (ESRD) Current Visit: Yes Status: Acute MWF [place] with Dr. Forde. Continue to renal dose and avoid nephrotoxins. Renal Diet. (2) Altered mental status Current Visit: Yes Status: Acute Is improving, most likely related to hypoglycemia. Qualifiers: Altered mental status type: unspecified Qualified Code(s): R41.82 - Altered mental status, unspecified (3) Hypoglycemia Current Visit: Yes Status: Acute Resolving. Accuchecks every 4 hours, Insulin on hold. Per primary team. (4) Anemia Current Visit: Yes Status: Acute Goal Hgb 10-11. Hgb is 9.2, stable. Will trend and do Iron profile if indicated. Qualifiers: Qualified Code(s): D64.9 - Anemia, unspecified History of Present Illness - Reason for Consult Consult date: 02/28/18 end stage renal disease - Chief Complaint hypoglycemia - History of Present Illness Ms. Riley is a 62 year old female with ESRD. She is Dr. Forde's patient and receives HD MWF, her last treatment was Wednesday. Orders have been put in to receive HD today. PMH: HTN, hyperlipidemia, DM, CAD, uses 2 Liters N/C at home. Has also had recurrent UTI's/bladder infections after finding right hydroneprosis which a stent was placed at this time, I do not believe she still has it. She was brought to ED for AMS via squad. She was given oral glucose and was alert. She was admitted to ICU for closer monitoring, but has since been transferred to . Upon exam patient is sitting up eating breakfast, alert. Denies fever, chills, nausea, vomiting. Denies chest pain and shortness of breath. Admits to chronic fatigue. She reports she only makes a "small" amount of urine, and denies frequency, urgency, or dysuria. Past Med Surg Social Fam HX - Past Medical History Medical history: COPD, coronary artery disease, CVA, DVT, diabetes, dialysis, GERD, GI bleed, hyperlipidemia, hypertension, peripheral artery disease, other Psychiatric history: anxiety, depression, schizophrenia, previous psychiatric hospitalization - Past Surgical History Surgical History: angioplasty/stent, appendectomy, cholecystectomy, coronary bypass (CABG), hysterectomy, knee replacement, other, IVC filter - Social History Smoking Status: Current every day smoker Smokeless Tobacco Status: No Alcohol use: none Drug use: none - Family History Father Family Member Ethnicity: Non- Living Status: Hx Family Cardiac Disorders: Yes Hx Family Respiratory Disorders: Yes Hx Family Cancer: Yes (Polycythemia) Hx Family Endocrine Disorder: Yes (DM) Mother Name: Nicolasa Martinez Age: 83 Family Member Ethnicity: Non- Living Status: Still Living Hx Family Cardiac Disorders: Yes Hx Family Respiratory Disorders: Yes (asthma, COPD) Brother Adopted: No Family Member Ethnicity: Non- Living Status: Still Living Hx Family Cardiac Disorders: No Hx Family Respiratory Disorders: No Hx Family Cancer: No Hx Family GI Disorders: No Hx Family Endocrine Disorder: No Hx Family Neuromuscular Disorders: No Hx Family Neurologic Disorders: No Hx Family HEENT Disorders: No Hx Family Autoimmune Disorders: No Sister Adopted: No Family Member Ethnicity: Non- Living Status: Still Living Hx Family Cardiac Disorders: Yes Hx Family Respiratory Disorders: No Hx Family Cancer: No Hx Family GI Disorders: No Hx Family Endocrine Disorder: Yes Hx Family Neuromuscular Disorders: No Hx Family Neurologic Disorders: No Hx Family HEENT Disorders: No Hx Family Autoimmune Disorders: No Medications and Allergies Omeprazole [PriLOSEC] 20 mg PO DAILY 05/11/15 [History] Colestipol HCl [Colestid] 1 gm PO BID 06/12/15 [History] Carvedilol 12.5 mg PO BID 10/28/15 [History] Calcium Acetate [Phos-LO] 1,334 mg PO TIDWM 09/06/16 [History] Folic Acid/Vit Bcomp,C [Renal Vitamin Tablet] 0.8 mg PO DAILY 04/15/17 [History] ARIPiprazole [Abilify] 10 mg PO DAILY 09/13/17 [History] Aspirin Enteric Coated [Aspirin EC] 81 mg PO DAILY 09/13/17 [History] Budesonide/Formoterol 160/4.5 [Symbicort 160/4.5] 2 puff IH BIDR 09/13/17 [ History] Cholecalciferol (Vitamin D3) [Vitamin D3] 50,000 unit PO TH 09/13/17 [History] OxyCODONE/APAP 10/325 [Percocet 10/325 MG] 1 tab PO Q6H PRN 09/13/17 [History] Sennosides [Senna] 8.6 mg PO BID PRN 09/13/17 [History] Sevelamer [Renvela] 800 mg PO TID 09/13/17 [History] Albuterol Neb [AccuNeb] 0.63 mg IH Q6H PRN 10/18/17 [History] Gabapentin [Neurontin] 100 mg PO TID #60 capsule 10/21/17 [Rx] Oxybutynin [Ditropan] 5 mg PO TID 11/11/17 [History] Insulin LISPRO [Humalog Kwikpen U-100] 0 unit SQ ACHS 11/25/17 [History] Acetaminophen [Tylenol] 650 mg PO Q6HR PRN tablet 12/14/17 [Rx] Amitriptyline HCl 100 mg PO HS 12/22/17 [History] Morphine Sulfate SR (12 HR) [MS Contin] 30 mg PO Q12HR 12/22/17 [History] amLODIPine [Norvasc] 5 mg PO DAILY 12/30/17 [History] Metoclopramide [Reglan] 5 mg PO TIDAC #15 ud.liq 01/13/18 [Rx] Clopidogrel [Plavix] 75 mg PO DAILY 02/03/18 [History] Collagenase Oint [Santyl] 1 appl TP DAILY #1 tube 02/09/18 [Rx] Insulin Glargine,Hum.rec.anlog [Basaglar Kwikpen U-100] 40 unit SQ HS #0 [Rx] Saccharomyces Boulardii [Florastor] 250 mg PO BID #20 capsule 02/09/18 [Rx] Rosuvastatin Calcium [Crestor] 20 mg PO DAILY 02/27/18 [History] metOLazone [Zaroxolyn] 2.5 mg PO DAILY 02/27/18 [History] 3 Allergy/AdvReac Type Severity Reaction Status Date / Time No Known Allergies Allergy Verified 02/03/18 12:01 Review of Systems All Systems: reviewed and no additional remarkable complaints except as stated Exam - Vital Signs Vital signs: Initial Vital Signs Temp Pulse Resp BP Pulse Ox 96.6 F L 95 20 123/62 90 02/27/18 00:45 02/27/18 00:45 02/27/18 00:45 02/27/18 00:45 02/27/18 00:45 Vital Signs - Last 8 Hours Temp Pulse Resp BP Pulse Ox 02/28/18 07:39 18 93 02/28/18 06:59 98.3 F 91 22 154/61 93 02/28/18 04:17 97.7 F 92 15 146/68 96 Intake and Output 02/27/18 02/28/18 02/28/18 23:59 07:59 15:59 Other: Meal Dinner Percent of Meal Consumed 30% # Voids 1 Blood Glucose* 83 129 - General Appearance General appearance: chronically ill EENT: ATNC, hearing intact, vision intact Respiratory: clear Cardiology: edema (+1 pitting edema noted bilaterally.), normal S1, normal S2 - Dialysis Access Dialysis Vascular Access: Arteriovenous Fistula thrill: Yes bruit: Yes Additional Comments: LUE. Gastrointestinal: normoactive bowel sounds, no tenderness, no guarding Integumentary: no rash, warm and dry, erythema, chronic venous stasis Neurologic: alert and oriented x3 Psychiatric: mood/affect appropriate, cooperative Results - Lab Results 02/28/18 06:50 02/28/18 06:50 Most recent lab results ABG pH 7.33 pH Units (7.32-7.45) 02/27/18 01:20 ABG pCO2 52 mmHg (35-45) H 02/27/18 01:20 ABG pO2 64 mmHg (85-104) L 02/27/18 01:20 ABG HCO3 27 mEq/L (21-27) 02/27/18 01:20 ABG O2 Saturation 90 % (95-98) L 02/27/18 01:20 Calcium 8.0 mg/dL (8.6-10.3) L 02/28/18 06:50 Phosphorus 7.6 mg/dL (2.7-4.5) H 02/27/18 01:13 Magnesium 1.6 mg/dL (1.6-2.6) 02/28/18 06:50 Consult Discharge Plan - Plan Referrals: Tristen Quintana MD [Primary Care Provider] - 03/04/18 10:15 am (please follow up as schedule...)
[2018-02-28] MEDS ORDERED: *HR* OxyCODONE/APAP 10/325 TABLET PO PRN (08:37)
[2018-02-28] MEDS: Calcium Acetate 667 MG CAPSULE PO SCH ×3 (10:00→18:18)
[2018-02-28] MEDS: ARIPiprazole 10 MG TABLET PO SCH (10:01)
[2018-02-28] MEDS: Aspirin Enteric Coated 81 MG Tablet PO SCH (10:01)
[2018-02-28] MEDS: cefTRIAXone 1,000 MG in Water for inj. (sterile) 20 ML 10 ML IVP SCH ×2 (10:01→10:10)
[2018-02-28] MEDS: amLODIPine 5 MG TABLET PO SCH (10:01)
[2018-02-28] MEDS: Lactobacillus 1 EACH CAP.SPRINK PO SCH ×2 (10:01→21:10)
[2018-02-28] MEDS: *HR* Morphine Sulfate SR (12 HR) 30 MG TABLET.ER PO SCH (10:19)
[2018-02-28] MEDS: Gabapentin 100 MG CAPSULE PO SCH ×3 (10:19→21:10)
[2018-02-28] MEDS: Budesonide/Formoterol 160/4.5 MDI IH SCH ×2 (11:07→20:34)
[2018-02-28] MEDS ORDERED: Ondansetron ODT 4 MG TAB.RAPDIS SL PRN (11:57)
[2018-02-28 12:20] LABS: ABG Base Excess 0 mEq/L (-2 to 3); ABG HCO3 27 mEq/L (21-27); ABG Oxygen Saturation 96 % (95-98); ABG PCO2 58 mmHg (35-45); ABG PH 7.28 pH Units (7.32-7.45); ABG PO2 92 mmHg (85-104); ABG TCO2 29 mEq/L (20-26)
--- NOTE | 2018-02-28 14:37 | Electrocardiograph Report ---
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
--- NOTE | 2018-02-28 14:37 | Electrocardiograph Report ---
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
[2018-02-28] MEDS: *HR* Dextrose 50 % in Water (Syg) 50 ML SYRINGE IVP PRN (16:03)
--- NOTE | 2018-02-28 17:41 | Internal Med Progress Note ---
Date of Encounter: 02/28/18 Time of Encounter: 11:45 - Assessment and plan (1) Acute on chronic respiratory failure with hypoxia and hypercapnia Current Visit: Yes Status: Acute Assessment and plan: Mostly due to volume overload with missing HD Reviewed ABG showed mild hypercapnea cont BiPAP for next 24hrs Nephro is arranging for stat HD now cont close monitoring Duoneb q4hr NATALIE (2) Hypoglycemia Current Visit: Yes Status: Acute Assessment and plan: Improved Cont holding Insulin coverage for now D/c IVF Tolerating PO intake well Q4hr accu chekcs for another 24hrs (3) Acute metabolic encephalopathy Current Visit: Yes Status: Acute Assessment and plan: likely secondary to hypoglycemia Improved now Urine cx from 02/25 - no growth No need of abx (4) ESRD (end stage renal disease) on dialysis Current Visit: No Status: Chronic Assessment and plan: Missed Wednesday HD Looks volume overload now Going for stat HD now cont close monitoring (5) UTI (urinary tract infection) Current Visit: Yes Status: Acute Assessment and plan: UA + Urine cx from 02/25 - no growth Blood cx - P No need of abx.. will d/c them Qualifiers: Qualified Code(s): N39.0 - Urinary tract infection, site not specified; R31.9 - Hematuria, unspecified (6) Elevated troponin Current Visit: Yes Status: Acute Assessment and plan: Slightly elevated and stable @ 0.05 Denies chest pain Mostly demand ischemia no further work up needed (7) Hypokalemia Current Visit: Yes Status: Acute Assessment and plan: improved (8) Diabetes Current Visit: Yes Status: Acute Assessment and plan: Diabetes is poorly controlled. Multiple hospitalizations for poor glycemic control. Last A1C 02/01/18 = 8.8 continue holding insulin due to hypoglycemia. Continue to closely monitor glucose levels with Q4hr POC checks. 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 - Time Spent With Patient Total time spent is greater than 50% in coordination of care (as documented) at patient's floor/unit and/or counseling patient: - Subjective Interval history: Ms. Riley is a 62 year old female PMHx HTN, hyperlipidemia, DM, CAD, Recurrent UTI with ESBLon HD MWF presents to ER with hypoglycemia in the 30s. She says she has been using her insulin as instructed and eating well. Family called EMS when they noted her glucose in 30s. The patient has also had difficulty voiding the last few months. She denies dysuria or hematuria. She has had multiple hospitalizations this year for both hypoglycemia and hyperglycemia. Diabetes is overall poorly controlled. She denies f/c/n/v, CP, dizziness, vision changes, headache, lightheadedness, cough, abdominal pain. Does use 2L Oxygen NC at home. She is currently on 4 lit O2. She is alert, awake and O x 3, however looks very sleepy. She does have moderate SOB and IBARRA. Denied any CP. Looks very lethargic. - Constitutional Vitals: Temp Pulse Resp BP Pulse Ox 98.0 F 103 16 119/80 97 02/28/18 13:20 02/28/18 11:03 02/28/18 13:20 02/28/18 16:50 02/28/18 11:11 General appearance: Present: mild distress, A&O X 3, obese - Head Head exam: Present: atraumatic, normal inspection - Neck Neck exam general surgery: Present: supple - Respiratory Respiratory exam: Present: decreased breath sounds, rales, respiratory distress. Absent: rhonchi, wheezes Additional comments: crackles ++ - Cardiovascular Cardiovascular exam: Present: +S1, +S2. Absent: tachycardia - GI/Abdominal GI/Abdominal exam: Present: normal bowel sounds, soft. Absent: rebound, rigid, tenderness - Extremities Exam Extremities exam: Present: pedal edema. Absent: calf tenderness, tenderness - Back Exam Back exam: Absent: CVA tenderness (L), CVA tenderness (R) - Neurological Exam Neurological exam: Present: alert, oriented X3 - Psychiatric Psychiatric exam: Present: normal affect, normal mood - Skin Skin exam: Absent: rash Internal Medicine: Result - Labs CBC & Chem 7: 02/28/18 06:50 02/28/18 06:50 Labs: Short CBC 02/28/18 Range/Units 06:50 WBC 7.5 (4.3-11.1) K/mcL Hgb 9.2 L (11.5-15.4) g/dL Hct 30.1 L (35.3-44.9) % Plt Count 152 (140-400) K/mcL Neutrophils # 5.2 (1.6-8.9) K/mcL BMP 02/28/18 06:50 Sodium 138 Potassium 4.7 Chloride 104 Carbon Dioxide 24 BUN 32 H Creatinine 2.71 H Glucose 75 Calcium 8.0 L - ABG Interpretation ABG results: ABG ABG pH 7.28 pH Units (7.32-7.45) L 02/28/18 12:17 ABG pCO2 58 mmHg (35-45) H 02/28/18 12:17 ABG pO2 92 mmHg (85-104) 02/28/18 12:17 ABG O2 Saturation 96 % (95-98) 02/28/18 12:17 PT/INR, D-dimer PT 10.7 Seconds (9.4-12.1) 02/27/18 01:13 Consult Discharge Plan - Plan Referrals: Tristen Quintana MD [Primary Care Provider] - 03/04/18 10:15 am (please follow up as schedule...)
[2018-03-01] MEDS: *HR* Dextrose 50 % in Water (Syg) 50 ML SYRINGE IVP PRN ×2 (01:25→08:31)
[2018-03-01] MEDS: Ipratropium/Albuterol Neb 3 ML IH SCH ×6 (03:27→23:51)
[2018-03-01] MEDS: *HR* Heparin 5,000 UNIT/ML VIAL SQ SCH ×2 (05:51→17:09)
[2018-03-01 07:08] LABS: Basophils % 0.2 %; Eosinophils # 0.1 K/mcL (0.0-0.6); Eosinophils % 0.5 %; Hematocrit 28.1 % (35.3-44.9); Hemoglobin 8.5 g/dL (11.5-15.4); Immature Granulocytes % 0.5 % (0-4); Lymphocytes # 1.9 K/mcL (0.6-4.6); Lymphocytes % 16.5 %; Mean Corpuscular HGB Conc 30.2 g/dL (31.6-35.5); Mean Corpuscular Hemoglobin 27.2 pg (28.0-33.3); Mean Corpuscular Volume 89.8 fL (83.0-100.0); Mean Platelet Volume 11.1 fL (9.4-12.4); Monocytes # 0.9 K/mcL (0.0-1.3); Monocytes % 7.6 %; Neutrophils # 8.7 K/mcL (1.6-8.9); Platelet Count 147 K/mcL (140-400); Red Blood Count 3.13 M/mcL (3.82-4.97); Segmented Neutrophils % 74.7 %
[2018-03-01 07:26] LABS: Calcium 8.1 mg/dL (8.6-10.3); Magnesium 1.7 mg/dL (1.6-2.6); Potassium 4.4 mEq/L (3.5-5.1)
[2018-03-01] MEDS: Budesonide/Formoterol 160/4.5 MDI IH SCH ×2 (07:31→19:53)
[2018-03-01] MEDS: amLODIPine 5 MG TABLET PO SCH (08:30)
[2018-03-01] MEDS: ARIPiprazole 10 MG TABLET PO SCH (08:30)
[2018-03-01] MEDS: Aspirin Enteric Coated 81 MG Tablet PO SCH (08:30)
[2018-03-01] MEDS: Calcium Acetate 667 MG CAPSULE PO SCH ×3 (08:30→17:16)
[2018-03-01] MEDS: Lactobacillus 1 EACH CAP.SPRINK PO SCH ×2 (08:30→21:06)
[2018-03-01] MEDS: Gabapentin 100 MG CAPSULE PO SCH ×3 (08:31→21:02)
--- NOTE | 2018-03-01 08:35 | Nephrology Progress Note ---
Date of Encounter: 03/01/18 Time of Encounter: 08:32 - Assessment and Plan (1) ESRD (end stage renal disease) on dialysis Current Visit: No Status: Chronic Plan for HD tomorrow Continue renal diet and strict I/Os Avoid nephrotoxins if possible (2) Altered mental status Current Visit: No Status: Acute Fever 100.8 today per hospitalist Qualifiers: Altered mental status type: unspecified Qualified Code(s): R41.82 - Altered mental status, unspecified (3) Anemia Current Visit: No Status: Chronic Hgb 8.5 Goal hgb 10-11 Patient gets 5200 units of epogen at outpatient dialysis Will add Aranesp Qualifiers: Anemia type: due to chronic kidney disease Chronic kidney disease stage: on chronic dialysis Qualified Code(s): N18.6 - End stage renal disease; D63.1 - Anemia in chronic kidney disease; Z99.2 - Dependence on renal dialysis Subjective Principal diagnosis: ESRD on HD, non-compliant Interval history: Patient seen and examined. Speech slurred at first then clears up; confused today-states she did not have HD yesterday but she did, with 4600ml removed. Objective - Vital Signs Vital signs: Vital Signs Temp Pulse Resp BP Pulse Ox 03/01/18 07:33 20 96 03/01/18 07:22 100.8 F H 100 20 132/61 95 03/01/18 03:34 98.9 F 109 14 164/72 100 03/01/18 03:27 14 100 02/28/18 23:46 99.1 F 110 14 162/66 100 02/28/18 23:13 17 98 02/28/18 20:34 98.3 F 101 15 150/80 98 02/28/18 17:05 97.4 F L 18 131/88 02/28/18 16:50 119/80 02/28/18 16:35 139/80 02/28/18 16:20 141/83 02/28/18 16:05 141/85 02/28/18 15:50 133/86 02/28/18 15:35 183/79 02/28/18 15:20 169/73 02/28/18 15:05 158/79 02/28/18 14:50 131/83 02/28/18 14:35 128/68 05/21/18 14:20 132/66 02/28/18 14:05 134/81 02/28/18 13:50 131/69 02/28/18 13:35 155/80 02/28/18 13:20 98.0 F 16 152/79 02/28/18 12:30 16 97 02/28/18 11:11 20 97 02/28/18 11:03 98.2 F 103 20 163/77 97 Intake and Output 02/28/18 03/01/18 03/01/18 23:59 07:59 15:59 Intake Total 120 / 120 Output Total 4600 / 4600 Balance -4480 / -4480 Intake: Oral 120 / 120 Output: Urine 0 / 0 Total Dialysis (HD) Output 4600 / 4600 Other: Meal Dinner Percent of Meal Consumed 5% # Voids 2 Blood Glucose* 66 61 54 Hemodialysis Net Fluid Removed 4000 (mL) - General Appearance General appearance: Present: obese, chronically ill EENT: Present: ATNC, mucous membranes moist, hearing intact, vision intact Neck: Present: supple Cardiology: Present: edema, normal S1, normal S2 Dialysis Vascular Access: Arteriovenous Fistula Gastrointestinal: Present: no tenderness, no guarding, obese Integumentary: Present: warm and dry Neurologic: Present: confused Psychiatric: Present: mood/affect appropriate, cooperative - Lab 03/01/18 06:19 03/01/18 06:19 Most recent lab results ABG pH 7.28 pH Units (7.32-7.45) L 02/28/18 12:17 ABG pCO2 58 mmHg (35-45) H 02/28/18 12:17 ABG pO2 92 mmHg (85-104) 02/28/18 12:17 ABG HCO3 27 mEq/L (21-27) 02/28/18 12:17 ABG O2 Saturation 96 % (95-98) 02/28/18 12:17 Calcium 8.1 mg/dL (8.6-10.3) L 03/01/18 06:19 Phosphorus 7.6 mg/dL (2.7-4.5) H 02/27/18 01:13 Magnesium 1.7 mg/dL (1.6-2.6) 03/01/18 06:19 Consult Discharge Plan - Plan Referrals: Tristen Quintana MD [Primary Care Provider] - 03/04/18 10:15 am (please follow up as schedule...)
[2018-03-01] MEDS ORDERED: Darbepoetin 100 MCG/0.5 ML SYRINGE SQ SCH (09:00)
[2018-03-01] MEDS ORDERED: 0.9 % Sodium Chloride 250 ML IVC PRN (10:05)
--- NOTE | 2018-03-01 15:10 | Internal Med Progress Note ---
Date of Encounter: 03/01/18 Time of Encounter: 08:00 - Assessment and plan (1) SIRS (systemic inflammatory response syndrome) Current Visit: Yes Status: Acute Assessment and plan: Does meet SISR criteria with low grade temp and Tachycardia Unclear etiology suspecting PNA blood cx no growth Urine cx from 517 no growth will get CXR started her on empirical abx Levaquin also check strep PNA, Sputum cx, Legionella and resp viral panel (2) Acute on chronic respiratory failure with hypoxia and hypercapnia Current Visit: Yes Status: Acute Assessment and plan: Mostly due to volume overload with missing HD Had HD y/d and removed 4.5 lit fluid Pt still have more rales, crackles.. talked to Nephro for an extra HD today Will use BiPAP PRN for now cont close monitoring Duoneb q4hr NATALIE (3) Hypoglycemia Current Visit: Yes Status: Acute Assessment and plan: Still running low @ 60's Cont holding Insulin coverage for now Tolerating PO intake well Cont Q4hr accu chekcs for another 24hrs D50 PRN (4) Acute metabolic encephalopathy Current Visit: Yes Status: Acute Assessment and plan: likely secondary to hypoglycemia Improved now Urine cx from 02/25 - no growth Blood cx - no growth (5) ESRD (end stage renal disease) on dialysis Current Visit: No Status: Chronic Assessment and plan: HD as per Nephro recommendation (6) UTI (urinary tract infection) Current Visit: Yes Status: Acute Assessment and plan: UA + Urine cx from 02/25 - no growth Blood cx - No growth Qualifiers: Qualified Code(s): N39.0 - Urinary tract infection, site not specified; R31.9 - Hematuria, unspecified (7) Elevated troponin Current Visit: Yes Status: Acute Assessment and plan: Slightly elevated and stable @ 0.05 Denies chest pain Mostly demand ischemia no further work up needed (8) Hypokalemia Current Visit: Yes Status: Acute Assessment and plan: improved (9) Diabetes Current Visit: Yes Status: Acute Assessment and plan: Diabetes is poorly controlled. Multiple hospitalizations for poor glycemic control. Last A1C 02/01/18 = 8.8 continue holding insulin due to hypoglycemia. Continue to closely monitor glucose levels with Q4hr POC checks. 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 - Time Spent With Patient Total time spent is greater than 50% in coordination of care (as documented) at patient's floor/unit and/or counseling patient: - Subjective Interval history: Ms. Riley is a 62 year old female PMHx HTN, hyperlipidemia, DM, CAD, Recurrent UTI with ESBLon HD MWF presents to ER with hypoglycemia in the 30s. She says she has been using her insulin as instructed and eating well. Family called EMS when they noted her glucose in 30s. The patient has also had difficulty voiding the last few months. She denies dysuria or hematuria. She has had multiple hospitalizations this year for both hypoglycemia and hyperglycemia. Diabetes is overall poorly controlled. She denies f/c/n/v, CP, dizziness, vision changes, headache, lightheadedness, cough, abdominal pain. Does use 2L Oxygen NC at home. She is currently on 3 lit O2. She is more alert, awake and O x 3. Did c/o generalized body pain. Denied any CP. Still has moderate SOB and IBARRA. - Constitutional Vitals: Temp Pulse Resp BP Pulse Ox 100.8 F H 100 19 158/67 96 03/01/18 07:22 03/01/18 07:22 03/01/18 10:40 03/01/18 13:10 03/01/18 07:33 General appearance: Present: A&O X 3, obese - Head Head exam: Present: atraumatic, normal inspection - Neck Neck exam general surgery: Present: supple - Respiratory Respiratory exam: Present: decreased breath sounds, rales (++), wheezes (mild). Absent: respiratory distress, rhonchi - Cardiovascular Cardiovascular exam: Present: RRR, +S1, +S2. Absent: tachycardia - GI/Abdominal GI/Abdominal exam: Present: normal bowel sounds, soft. Absent: rebound, rigid, tenderness - Extremities Exam Extremities exam: Present: pedal edema. Absent: calf tenderness, tenderness - Back Exam Back exam: Absent: CVA tenderness (L), CVA tenderness (R) - Neurological Exam Neurological exam: Present: alert, oriented X3 - Psychiatric Psychiatric exam: Present: normal affect, normal mood Internal Medicine: Result - Labs CBC & Chem 7: 03/01/18 06:19 03/01/18 06:19 Labs: Short CBC 03/01/18 Range/Units 06:19 WBC 11.6 H D (4.3-11.1) K/mcL Hgb 8.5 L (11.5-15.4) g/dL Hct 28.1 L (35.3-44.9) % Plt Count 147 (140-400) K/mcL Neutrophils # 8.7 (1.6-8.9) K/mcL BMP 03/01/18 06:19 Sodium 136 Potassium 4.4 Chloride 97 L Carbon Dioxide 32 H BUN 20 Creatinine 2.03 H Glucose 51 L Calcium 8.1 L - ABG Interpretation ABG results: ABG ABG pH 7.28 pH Units (7.32-7.45) L 02/28/18 12:17 ABG pCO2 58 mmHg (35-45) H 02/28/18 12:17 ABG pO2 92 mmHg (85-104) 02/28/18 12:17 ABG O2 Saturation 96 % (95-98) 02/28/18 12:17 PT/INR, D-dimer PT 10.7 Seconds (9.4-12.1) 02/27/18 01:13 Consult Discharge Plan - Plan Referrals: Tristen Quintana MD [Primary Care Provider] - 03/04/18 10:15 am (please follow up as schedule...)
[2018-03-01] MEDS ORDERED: Levofloxacin 750 MG/150 ML 750 MG/150 ML BAG IVPB SCH (16:00)
[2018-03-01 18:57] LABS: Adenovirus Not Detected (Not Detect); Bordetella Pertussis Not Detected (Not Detect); Chlamydophila pneumoniae Not Detected (Not Detect); Coronavirus 229E Not Detected (Not Detect); Coronavirus HKU1 Not Detected (Not Detect); Coronavirus NL63 Not Detected (Not Detect); Coronavirus OC43 Not Detected (Not Detect); Human Metapneumovirus Not Detected (Not Detect); Human Rhinovirus/Enterovirus Not Detected (Not Detect); Influenza A Subtype 2009 H1 Not Detected (Not Detect); Influenza A Untypeable Not Detected (Not Detect); Influenza B Not Detected (Not Detect); Mycoplasma pneumoniae Not Detected (Not Detect); Parainfluenza Virus 1 Not Detected (Not Detect); Parainfluenza Virus 2 Not Detected (Not Detect); Parainfluenza Virus 3 Not Detected (Not Detect); Parainfluenza Virus 4 Not Detected (Not Detect); Respiratory Syncytial Virus Not Detected (Not Detect)
[2018-03-02] MEDS: Ipratropium/Albuterol Neb 3 ML IH SCH ×5 (04:06→20:24)
[2018-03-02 04:20] LABS: Basophils % 0.2 %; Eosinophils # 0.1 K/mcL (0.0-0.6); Eosinophils % 0.4 %; Hematocrit 26.1 % (35.3-44.9); Hemoglobin 7.8 g/dL (11.5-15.4); Immature Granulocytes % 0.7 % (0-4); Lymphocytes # 2.1 K/mcL (0.6-4.6); Lymphocytes % 16.2 %; Mean Corpuscular HGB Conc 29.9 g/dL (31.6-35.5); Mean Corpuscular Hemoglobin 26.7 pg (28.0-33.3); Mean Corpuscular Volume 89.4 fL (83.0-100.0); Mean Platelet Volume 10.9 fL (9.4-12.4); Monocytes # 0.9 K/mcL (0.0-1.3); Monocytes % 7.2 %; Neutrophils # 9.5 K/mcL (1.6-8.9); Platelet Count 136 K/mcL (140-400); Red Blood Count 2.92 M/mcL (3.82-4.97); Red Cell Distribution Width 15.9 % (11.5-14.5); Segmented Neutrophils % 75.3 %
[2018-03-02 04:35] LABS: Calcium 8.7 mg/dL (8.6-10.3); Potassium 4.9 mEq/L (3.5-5.1)
[2018-03-02] MEDS: *HR* Heparin 5,000 UNIT/ML VIAL SQ SCH ×2 (05:47→16:23)
[2018-03-02] MEDS ORDERED: 0.9 % Sodium Chloride 2,000 ML ONE (06:14)
[2018-03-02] MEDS ORDERED: 0.9 % Sodium Chloride 250 ML IVC PRN (06:21)
[2018-03-02] MEDS ORDERED: 0.9 % Sodium Chloride 1,000 ML PRIME SCH (06:30)
[2018-03-02] MEDS: Calcium Acetate 667 MG CAPSULE PO SCH ×3 (10:09→16:23)
[2018-03-02] MEDS: Gabapentin 100 MG CAPSULE PO SCH ×3 (10:13→20:07)
[2018-03-02] MEDS: Lactobacillus 1 EACH CAP.SPRINK PO SCH ×2 (10:13→20:08)
[2018-03-02] MEDS: Aspirin Enteric Coated 81 MG Tablet PO SCH (10:13)
[2018-03-02] MEDS: ARIPiprazole 10 MG TABLET PO SCH (10:13)
[2018-03-02] MEDS: amLODIPine 5 MG TABLET PO SCH (10:14)
--- NOTE | 2018-03-02 10:22 | Nephrology Progress Note ---
Date of Encounter: 03/02/18 Time of Encounter: 08:20 - Assessment and Plan (1) ESRD (end stage renal disease) on dialysis Current Visit: No Status: Chronic Dialysis note: VSS and tolerating HD. Hypervolemic volume status is improving after having had HD back to back with [facility] (yesterday). Plan for the next HD on Wednesday. Anemia of CKD: KAITLIN via Aranesp while admitted but after discharge, she will receive EPO at the dialysis unit. (2) Anasarca Current Visit: No Status: Acute (3) Anemia in chronic kidney disease, on chronic dialysis Current Visit: No Status: Chronic Subjective Principal diagnosis: ESRD on HD, non-compliant Interval history: Pt was s/e while on HD. She said that her appetite was diminished. She felt that her swelling was improved today after having completed an extra dialysis treatment yesterday. She did not affirm N/V/D or cramping while on HD. Objective - Vital Signs Vital signs: Vital Signs Temp Pulse Resp BP Pulse Ox 03/02/18 08:45 125/59 03/02/18 08:30 148/68 03/02/18 08:15 126/55 03/02/18 08:00 126/59 03/02/18 07:45 151/69 03/02/18 07:30 143/60 03/02/18 07:15 130/60 03/02/18 07:00 133/63 03/02/18 06:45 146/68 03/02/18 06:30 134/65 03/02/18 06:15 98.5 F 17 139/61 03/02/18 03:18 98.5 F 98 18 142/66 96 03/02/18 00:16 98.5 F 90 14 125/64 94 03/01/18 20:26 99 F 93 18 130/66 98 03/01/18 19:53 18 95 03/01/18 15:48 16 95 03/01/18 15:23 99.2 F 93 14 105/62 90 03/01/18 14:00 99.2 F 15 162/68 03/01/18 13:40 144/68 03/01/18 13:25 143/67 03/01/18 13:10 158/67 03/01/18 12:55 152/67 05/22/18 12:40 156/66 03/01/18 12:25 139/64 03/01/18 12:10 162/68 03/01/18 11:55 145/64 03/01/18 11:40 159/65 03/01/18 11:25 155/69 03/01/18 11:10 154/67 03/01/18 10:55 151/63 03/01/18 10:46 132/61 03/01/18 10:40 19 155/68 Intake and Output 03/01/18 03/02/18 03/02/18 23:59 07:59 15:59 Intake Total 0 / 0 600 / 600 Balance 0 / 0 600 / 600 Intake: Oral 0 / 0 0 / 0 Intake, Rinseback and Flushes 600 / 600 Other: Meal Dinner Percent of Meal Consumed 0% Weight 105.5 kg Blood Glucose* 150 155 132 Hemodialysis Net Fluid Removed 1976 3297 (mL) Patient Weight 03/02/18 23:59 Weight 105.5 kg - General Appearance General appearance: Present: obese, chronically ill, fatigue, frail EENT: Present: ATNC, PERRL, mucous membranes moist Neck: Present: supple Respiratory: Present: clear Cardiology: Present: edema (1+ pretibial pitting edema bilaterally, but now with wrinkles suggesting improvement), regular rate, normal S1, normal S2 Dialysis Vascular Access: Arteriovenous Graft (LUE) thrill: Yes bruit: Yes Gastrointestinal: Present: normoactive bowel sounds, no tenderness Integumentary: Present: chronic venous stasis Neurologic: Present: no focal deficit, no asterixis, alert and oriented x3 Musculoskeletal: Present: no cyanosis, no clubbing Psychiatric: Present: mood/affect appropriate, cooperative - Lab 03/02/18 04:00 03/02/18 04:00 Most recent lab results ABG pH 7.28 pH Units (7.32-7.45) L 02/28/18 12:17 ABG pCO2 58 mmHg (35-45) H 02/28/18 12:17 ABG pO2 92 mmHg (85-104) 02/28/18 12:17 ABG HCO3 27 mEq/L (21-27) 02/28/18 12:17 ABG O2 Saturation 96 % (95-98) 02/28/18 12:17 Calcium 8.7 mg/dL (8.6-10.3) 03/02/18 04:00 Phosphorus 7.6 mg/dL (2.7-4.5) H 02/27/18 01:13 Magnesium 1.7 mg/dL (1.6-2.6) 03/01/18 06:19 Consult Discharge Plan - Plan Referrals: Tristen Quintana MD [Primary Care Provider] - 03/04/18 10:15 am (please follow up as schedule...)
[2018-03-02] MEDS: Budesonide/Formoterol 160/4.5 MDI IH SCH ×2 (11:37→20:24)
[2018-03-02] MEDS ORDERED: Levofloxacin 500 MG/100 ML 500 MG/100 ML BAG IVPB SCH (14:00)
--- NOTE | 2018-03-02 15:53 | Internal Med Progress Note ---
Date of Encounter: 03/02/18 Time of Encounter: 12:10 - Assessment and plan (1) SIRS (systemic inflammatory response syndrome) Current Visit: Yes Status: Acute Assessment and plan: Does meet SISR criteria with low grade temp and Tachycardia Unclear etiology suspecting PNA blood cx no growth Urine cx from 517 no growth CXR - infiltrates in both lungs Cont empirical abx Levaquin Sputum cx - P (2) Acute on chronic respiratory failure with hypoxia and hypercapnia Current Visit: Yes Status: Acute Assessment and plan: Mostly due to volume overload with missing HD Cont HD as scheduled by Nephro Will use BiPAP PRN for now cont close monitoring Duoneb q4hr NATALIE (3) Hypoglycemia Current Visit: Yes Status: Acute Assessment and plan: resolved Tolerating PO intake well cont ACHS accu chekcs with no coverage for now D50 PRN (4) Acute metabolic encephalopathy Current Visit: Yes Status: Acute Assessment and plan: likely secondary to hypoglycemia Improved now Urine cx from 02/25 - no growth Blood cx - no growth (5) ESRD (end stage renal disease) on dialysis Current Visit: No Status: Chronic Assessment and plan: HD as per Nephro recommendation (6) UTI (urinary tract infection) Current Visit: Yes Status: Acute Assessment and plan: UA + Urine cx from 02/25 - no growth Blood cx - No growth Qualifiers: Qualified Code(s): N39.0 - Urinary tract infection, site not specified; R31.9 - Hematuria, unspecified (7) Elevated troponin Current Visit: Yes Status: Acute Assessment and plan: Slightly elevated and stable @ 0.05 Denies chest pain Mostly demand ischemia no further work up needed (8) Hypokalemia Current Visit: Yes Status: Acute Assessment and plan: improved (9) Diabetes Current Visit: Yes Status: Acute Assessment and plan: Diabetes is poorly controlled. Multiple hospitalizations for poor glycemic control. Last A1C 02/01/18 = 8.8 continue holding insulin due to hypoglycemia. 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 - Time Spent With Patient Total time spent is greater than 50% in coordination of care (as documented) at patient's floor/unit and/or counseling patient: - Subjective Interval history: Ms. Riley is a 62 year old female PMHx HTN, hyperlipidemia, DM, CAD, Recurrent UTI with ESBLon HD MWF presents to ER with hypoglycemia in the 30s. She says she has been using her insulin as instructed and eating well. Family called EMS when they noted her glucose in 30s. The patient has also had difficulty voiding the last few months. She denies dysuria or hematuria. She has had multiple hospitalizations this year for both hypoglycemia and hyperglycemia. Diabetes is overall poorly controlled. She denies f/c/n/v, CP, dizziness, vision changes, headache, lightheadedness, cough, abdominal pain. Does use 2L Oxygen NC at home. She is currently on 3 lit O2. Today she is more alert, awake and O x 3. Denied any CP. Just came back from HD. Feels better today. SOB and IBARRA also better. - Constitutional Vitals: Temp Pulse Resp BP Pulse Ox 98.7 F 86 18 121/71 92 03/02/18 10:27 03/02/18 10:27 03/02/18 11:40 03/02/18 10:27 03/02/18 11:40 General appearance: Present: A&O X 3, obese - Head Head exam: Present: atraumatic, normal inspection - Neck Neck exam general surgery: Present: supple - Respiratory Respiratory exam: Present: decreased breath sounds, wheezes. Absent: rales, respiratory distress, rhonchi - Cardiovascular Cardiovascular exam: Present: RRR, +S1, +S2. Absent: tachycardia - GI/Abdominal GI/Abdominal exam: Present: normal bowel sounds, soft. Absent: rebound, rigid, tenderness - Extremities Exam Extremities exam: Present: pedal edema. Absent: calf tenderness, tenderness - Back Exam Back exam: Absent: CVA tenderness (L), CVA tenderness (R) - Neurological Exam Neurological exam: Present: alert, oriented X3 - Psychiatric Psychiatric exam: Present: normal affect, normal mood Internal Medicine: Result - Labs CBC & Chem 7: 03/02/18 04:00 03/02/18 04:00 Labs: Short CBC 03/02/18 Range/Units 04:00 WBC 12.7 H (4.3-11.1) K/mcL Hgb 7.8 L (11.5-15.4) g/dL Hct 26.1 L (35.3-44.9) % Plt Count 136 L (140-400) K/mcL Neutrophils # 9.5 H (1.6-8.9) K/mcL BMP 03/02/18 04:00 Sodium 133 L Potassium 4.9 Chloride 95 L Carbon Dioxide 30 H BUN 33 H Creatinine 2.58 H Glucose 154 H Calcium 8.7 - ABG Interpretation ABG results: ABG ABG pH 7.28 pH Units (7.32-7.45) L 02/28/18 12:17 ABG pCO2 58 mmHg (35-45) H 02/28/18 12:17 ABG pO2 92 mmHg (85-104) 02/28/18 12:17 ABG O2 Saturation 96 % (95-98) 02/28/18 12:17 PT/INR, D-dimer PT 10.7 Seconds (9.4-12.1) 02/27/18 01:13 - Impressions Impressions Chest X-Ray 03/01/18 15:20 IMPRESSION: 1. Ground glass and reticular opacities throughout the lungs with more focal opacities in the bases. Differential considerations include edema with atelectasis or atypical infection. 2. Cardiomegaly. D/ / Tracy Davey MD / Tracy Davey MD Interpreting Provider: Tracy Davey MD Consult Discharge Plan - Plan Referrals: Tristen Quintana MD [Primary Care Provider] - 03/04/18 10:15 am (please follow up as schedule...)
[2018-03-02] MEDS ORDERED: Ipratropium/Albuterol Neb 3 ML IH PRN (23:21)
[2018-03-02] MEDS ORDERED: Budesonide/Formoterol 160/4.5 MDI IH PRN (23:25)
[2018-03-03] MEDS: *HR* Heparin 5,000 UNIT/ML VIAL SQ SCH ×2 (04:55→17:43)
[2018-03-03] MEDS: Aspirin Enteric Coated 81 MG Tablet PO SCH (08:46)
[2018-03-03] MEDS: Gabapentin 100 MG CAPSULE PO SCH ×3 (08:46→21:33)
[2018-03-03] MEDS: amLODIPine 5 MG TABLET PO SCH (08:46)
[2018-03-03] MEDS: Lactobacillus 1 EACH CAP.SPRINK PO SCH ×2 (08:46→21:33)
[2018-03-03] MEDS: Calcium Acetate 667 MG CAPSULE PO SCH ×3 (08:46→17:31)
[2018-03-03] MEDS: ARIPiprazole 10 MG TABLET PO SCH (08:46)
[2018-03-03] MEDS ORDERED: Cefepime HCl 1,000 MG in Water for inj. (sterile) 20 ML 10 ML IVP ONE (09:14)
--- NOTE | 2018-03-03 09:39 | Nephrology Progress Note ---
Date of Encounter: 03/03/18 Time of Encounter: 09:37 - Assessment and Plan (1) ESRD (end stage renal disease) on dialysis Current Visit: No Status: Chronic Plan for HD tomorrow Continue renal diet and strict I/Os Avoid nephrotoxins if possible (2) Altered mental status Current Visit: No Status: Resolved Qualifiers: Altered mental status type: unspecified Qualified Code(s): R41.82 - Altered mental status, unspecified (3) Anemia Current Visit: No Status: Chronic Hgb 7.8 yesterday; no labs today Goal hgb 10-11 Continue Aranesp Qualifiers: Anemia type: due to chronic kidney disease Chronic kidney disease stage: on chronic dialysis Qualified Code(s): N18.6 - End stage renal disease; D63.1 - Anemia in chronic kidney disease; Z99.2 - Dependence on renal dialysis Subjective Principal diagnosis: ESRD on HD, non-compliant Interval history: Patient seen and examined. Sitting up in chair, states she is feeling well Objective - Vital Signs Vital signs: Vital Signs Temp Pulse Resp BP Pulse Ox 03/03/18 08:08 98.4 F 85 20 137/70 99 03/03/18 05:34 98.3 F 91 18 118/57 99 03/03/18 00:01 98.6 F 83 18 128/72 97 03/02/18 19:49 98.1 F 78 18 145/81 98 03/02/18 15:56 98.1 F 90 18 124/65 98 03/02/18 11:40 18 92 03/02/18 10:27 98.7 F 86 18 121/71 92 03/02/18 10:00 98.7 F 17 126/53 03/02/18 09:45 131/55 Intake and Output 03/02/18 03/03/18 03/03/18 23:59 07:59 15:59 Intake Total 240 / 240 480 / 480 Balance 240 / 240 480 / 480 Intake: Oral 240 / 240 480 / 480 Other: Meal Dinner Breakfast Percent of Meal Consumed 80% 100% # Urine Diapers 1 Weight 106 kg Blood Glucose* 241 184 200 Patient Weight 03/03/18 23:59 Weight 106 kg - General Appearance General appearance: Present: obese, chronically ill EENT: Present: ATNC, mucous membranes moist, hearing intact, vision intact Neck: Present: supple Cardiology: Present: edema (improved), regular rate, regular rhythm Dialysis Vascular Access: Arteriovenous Graft Gastrointestinal: Present: no tenderness, no guarding, obese Integumentary: Present: warm and dry Neurologic: Present: alert and oriented x3 Psychiatric: Present: mood/affect appropriate, cooperative - Lab 03/02/18 04:00 03/02/18 04:00 Most recent lab results ABG pH 7.28 pH Units (7.32-7.45) L 02/28/18 12:17 ABG pCO2 58 mmHg (35-45) H 02/28/18 12:17 ABG pO2 92 mmHg (85-104) 02/28/18 12:17 ABG HCO3 27 mEq/L (21-27) 02/28/18 12:17 ABG O2 Saturation 96 % (95-98) 02/28/18 12:17 Calcium 8.7 mg/dL (8.6-10.3) 03/02/18 04:00 Phosphorus 7.6 mg/dL (2.7-4.5) H 02/27/18 01:13 Magnesium 1.7 mg/dL (1.6-2.6) 03/01/18 06:19 Consult Discharge Plan - Plan Referrals: Tristen Quintana MD [Primary Care Provider] - 03/04/18 10:15 am (please follow up as schedule...)
--- NOTE | 2018-03-03 09:56 | Internal Med Progress Note ---
Date of Encounter: 03/03/18 Time of Encounter: 10:00 - Assessment and plan (1) HCAP (healthcare-associated pneumonia) Current Visit: No Status: Acute Assessment and plan: p has had multiple hospital admissions recently. Sputum culures grwoing gram negative rods. Continue levaquin and cefepime . Await sensitivities (2) Acute on chronic respiratory failure with hypoxia and hypercapnia Current Visit: Yes Status: Acute Assessment and plan: Mostly due to volume overload with missing HD Cont HD as scheduled by Nephro Will use BiPAP PRN for now cont close monitoring Duoneb q4hr NATALIE (3) ESRD (end stage renal disease) on dialysis Current Visit: No Status: Chronic Assessment and plan: HD as per Nephro recommendation (4) DVT prophylaxis Current Visit: No Status: Acute Assessment and plan: subq heparin. (5) Hypoglycemia Current Visit: Yes Status: Acute Assessment and plan: resolved. Blood sugars in the 200s this am. Resume lantus at 10units at bedtime (6) Elevated troponin Current Visit: Yes Status: Acute Assessment and plan: Slightly elevated and stable @ 0.05 Denies chest pain Mostly demand ischemia no further work up needed (7) UTI (urinary tract infection) Current Visit: Yes Status: Acute Assessment and plan: UA + Urine cx from 02/25 - no growth Blood cx - No growth Qualifiers: Urinary tract infection type: acute cystitis Qualified Code(s): N30.00 - Acute cystitis without hematuria (8) Acute metabolic encephalopathy Current Visit: Yes Status: Acute Assessment and plan: likely secondary to hypoglycemia Improved now Urine cx from 02/25 - no growth Blood cx - no growth (9) Hypokalemia Current Visit: Yes Status: Acute Assessment and plan: improved (10) Diabetes Current Visit: Yes Status: Acute Assessment and plan: Diabetes is poorly controlled. Multiple hospitalizations for poor glycemic control. Last A1C 02/01/18 = 8.8 continue holding insulin due to hypoglycemia. May not need Insulin She can be ok with PO Glimepride at low dose Qualifiers: Diabetes mellitus type: type 2 Qualified Code(s): E11.9 - Type 2 diabetes mellitus without complications (11) SIRS (systemic inflammatory response syndrome) Current Visit: Yes Status: Acute Assessment and plan: Does meet SISR criteria with low grade temp and Tachycardia Unclear etiology suspecting PNA blood cx no growth Urine cx from 517 no growth CXR - infiltrates in both lungs Cont empirical abx Levaquin Sputum cx - P (12) Pneumonia Current Visit: No Status: Acute Qualifiers: Pneumonia type: due to unspecified organism Laterality: unspecified laterality Lung location: unspecified part of lung Qualified Code(s): J18.9 - Pneumonia, unspecified organism - Time Spent With Patient Total time spent is greater than 50% in coordination of care (as documented) at patient's floor/unit and/or counseling patient: - Subjective Interval history: No acute events overnight - Constitutional Vitals: Temp Pulse Resp BP Pulse Ox 98.4 F 85 20 137/70 99 03/03/18 08:08 03/03/18 08:08 03/03/18 08:08 03/03/18 08:08 03/03/18 08:08 General appearance: Present: A&O X 3, obese - Head Head exam: Present: atraumatic, normocephalic - Eye Eye exam: Present: PERRL, conjuntiva pink, sclera anicteric Pupils: Present: PERRL - Neck Neck exam general surgery: Present: supple, trachea midline. Absent: lymphadenopathy - Respiratory Respiratory exam: Present: CTAB. Absent: accessory muscle use, rales, rhonchi, wheezes - Cardiovascular Cardiovascular exam: Present: RRR, +S1, +S2. Absent: diastolic murmur, gallop, rubs, systolic murmur - GI/Abdominal GI/Abdominal exam: Present: normal bowel sounds, soft, no peritoneal signs. Absent: distended, tenderness - Extremities Exam Extremities exam: Present: warm, radial pulses palpable and symmetrical. Absent : calf tenderness, cyanotic, pedal edema - Neurological Exam Neurological exam: Present: CN II-XII intact, oriented X3, no focal deficits. Absent: pronater drift, facial droop, speech deficit - Skin Skin exam: Present: dry, intact Internal Medicine: Result - Labs CBC & Chem 7: 03/02/18 04:00 03/02/18 04:00 - ABG Interpretation ABG results: ABG ABG pH 7.28 pH Units (7.32-7.45) L 02/28/18 12:17 ABG pCO2 58 mmHg (35-45) H 02/28/18 12:17 ABG pO2 92 mmHg (85-104) 02/28/18 12:17 ABG O2 Saturation 96 % (95-98) 02/28/18 12:17 PT/INR, D-dimer PT 10.7 Seconds (9.4-12.1) 02/27/18 01:13 Consult Discharge Plan - Plan Referrals: Tristen Quintana MD [Primary Care Provider] - 03/04/18 10:15 am (please follow up as schedule...)
[2018-03-03] MEDS: Cholecalciferol (D-3) 1,000 UNIT TABLET PO SCH (12:51)
[2018-03-03] MEDS ORDERED: Levofloxacin 500 MG/100 ML 500 MG/100 ML BAG IVPB SCH (15:00)
[2018-03-03] MEDS ORDERED: Dextrose Gel 15 GM/37.5 ML TUBE PO PRN ×2 (17:01)
[2018-03-03] MEDS ORDERED: D5% in Water 1,000 ML IVC PRN (17:01)
[2018-03-03] MEDS ORDERED: *HR* Dextrose 50 % in Water (Syg) 50 ML SYRINGE IVP PRN (17:01)
[2018-03-03] MEDS: Insulin LISPRO 300 UNITS/3 ML VIAL SQ SCH (17:35)
[2018-03-03] MEDS ORDERED: 0.9 % Sodium Chloride 250 ML IVC PRN (18:51)
[2018-03-03] MEDS ORDERED: Insulin DETEMIR 100 UNIT/ML X5UNITS SQ SCH (21:00)
[2018-03-04 02:46] LABS: Bilirubin,Urine Small (Negative); Blood,Urine Moderate (Negative); Clarity,Urine Turbid (Clear); Color,Urine Yellow (Yellow); Glucose,Urine (UA) Normal (Normal); Ketones,Urine Trace mg/dL (Negative); Leukocyte Esterase,Urine Large (Negative); Nitrite,Urine Negative (Negative); Protein,Urine >=300 mg/dL (Neg-Trace); Specific Gravity,Urine 1.018 (1.010-1.025); Urobilinogen,Urine Normal (Normal)
[2018-03-04 02:54] LABS: WBC,Urine TNTC per hpf (0-3)
[2018-03-04 02:55] LABS: Bacteria,Urine Many per hpf (None-Few)
[2018-03-04] MEDS ORDERED: 0.9 % Sodium Chloride 1,000 ML ONE (04:48)
[2018-03-04 05:02] LABS: Hematocrit 26.9 % (35.3-44.9); Hemoglobin 8.4 g/dL (11.5-15.4); Mean Corpuscular HGB Conc 31.2 g/dL (31.6-35.5); Mean Corpuscular Hemoglobin 27.5 pg (28.0-33.3); Mean Corpuscular Volume 88.2 fL (83.0-100.0); Mean Platelet Volume 10.9 fL (9.4-12.4); Platelet Count 160 K/mcL (140-400); Red Blood Count 3.05 M/mcL (3.82-4.97); Red Cell Distribution Width 15.6 % (11.5-14.5)
[2018-03-04 05:23] LABS: Calcium 8.6 mg/dL (8.6-10.3); Potassium 4.4 mEq/L (3.5-5.1)
[2018-03-04] MEDS: Insulin LISPRO 300 UNITS/3 ML VIAL SQ SCH (07:30)
--- NOTE | 2018-03-04 09:15 | Nephrology Progress Note ---
Date of Encounter: 03/04/18 Time of Encounter: 09:11 - Assessment and Plan (1) End-stage renal disease (ESRD) Current Visit: Yes Status: Acute HD regimen MWF. HD today. Continue to avoid nephrotoxins and renal dose all medications. (2) Altered mental status Current Visit: Yes Status: Acute Resolved. Qualifiers: Altered mental status type: unspecified Qualified Code(s): R41.82 - Altered mental status, unspecified (3) Hypoglycemia Current Visit: Yes Status: Acute Resolved. (4) Anemia Current Visit: Yes Status: Acute Hgb 8.4 today. On Aranesp. Qualifiers: Qualified Code(s): D64.9 - Anemia, unspecified Subjective Principal diagnosis: ESRD on HD, non-compliant Interval history: Per seen and examined in HD, denies CP, SOB, nausea/vomiting. Objective - Vital Signs Vital signs: Vital Signs Temp Pulse Resp BP Pulse Ox 03/04/18 08:53 100.5 F H 18 134/47 03/04/18 08:15 129/50 03/04/18 08:00 122/51 03/04/18 07:45 123/49 03/04/18 07:30 125/51 03/04/18 07:15 126/49 03/04/18 07:00 128/52 03/04/18 06:45 125/55 03/04/18 06:30 123/52 03/04/18 06:15 134/53 03/04/18 06:00 135/61 03/04/18 05:45 133/53 03/04/18 05:30 108/52 03/04/18 05:15 129/57 03/04/18 05:00 110/54 03/04/18 04:45 99.0 F 18 131/54 03/04/18 04:16 100.5 F H 94 18 129/67 92 03/04/18 01:21 99.5 F 85 16 127/66 94 03/03/18 20:01 98.5 F 82 22 124/57 94 03/03/18 16:39 98.3 F 85 19 149/63 96 03/03/18 11:15 98.4 F 80 22 120/57 98 Intake and Output 03/03/18 03/04/18 03/04/18 23:59 07:59 15:59 Intake Total 240 / 240 600 / 600 Output Total 200 / 200 150 / 150 4100 / 4100 Balance 40 / 40 450 / 450 -4100 / -4100 Intake: Oral 240 / 240 0 / 0 Intake, Rinseback and Flushes 600 / 600 Output: Urine 0 / 0 Total Dialysis (HD) Output 4100 / 4100 Straight Cath 200 / 200 150 / 150 Other: Meal Dinner Percent of Meal Consumed 100% Weight 103 kg Blood Glucose* 252 158 Hemodialysis Net Fluid Removed 3498 3500 (mL) Patient Weight 03/04/18 23:59 Weight 103 kg - General Appearance General appearance: Present: chronically ill, frail EENT: Present: ATNC, hearing intact, vision intact Neck: Present: supple Respiratory: Present: clear Cardiology: Present: normal S1, normal S2 Dialysis Vascular Access: Arteriovenous Fistula thrill: Yes bruit: Yes Additional Comments: LUE. Gastrointestinal: Present: normoactive bowel sounds, no tenderness, no guarding Integumentary: Present: no rash, warm and dry Neurologic: Present: alert and oriented x3 Psychiatric: Present: mood/affect appropriate, cooperative - Lab 03/04/18 04:33 03/04/18 04:33 Most recent lab results ABG pH 7.28 pH Units (7.32-7.45) L 02/28/18 12:17 ABG pCO2 58 mmHg (35-45) H 02/28/18 12:17 ABG pO2 92 mmHg (85-104) 02/28/18 12:17 ABG HCO3 27 mEq/L (21-27) 02/28/18 12:17 ABG O2 Saturation 96 % (95-98) 02/28/18 12:17 Calcium 8.6 mg/dL (8.6-10.3) 03/04/18 04:33 Phosphorus 7.6 mg/dL (2.7-4.5) H 02/27/18 01:13 Magnesium 1.7 mg/dL (1.6-2.6) 03/01/18 06:19 Consult Discharge Plan - Plan Referrals: Tristen Quintana MD [Primary Care Provider] - 03/04/18 10:15 am (please follow up as schedule...)
[2018-03-04] MEDS: *HR* Heparin 5,000 UNIT/ML VIAL SQ SCH (09:47)
--- NOTE | 2018-03-04 09:47 | Discharge Summary ---
Orders not resulted at time of discharge: Pending orders 03/01/18 15:27 Legionella Antigen [RM] Stat S. Pneumoniae Antigen [RM] Stat 03/01/18 17:25 Sputum Culture [Culture,Sputum with Gram Stain] [RM] Stat 03/04/18 02:30 Culture,Urine [RM] Stat 03/05/18 04:00 BMP [Basic Metabolic Panel] AM 0400 Complete Blood Count w/o Diff [HEME] AM 04003/06/18 04:00 BMP [Basic Metabolic Panel] AM 0400 Complete Blood Count w/o Diff [HEME] AM 04003/07/18 04:00 BMP [Basic Metabolic Panel] AM 0400 Complete Blood Count w/o Diff [HEME] AM 04003/08/18 04:00 BMP [Basic Metabolic Panel] AM 0400 Complete Blood Count w/o Diff [HEME] AM 04003/09/18 04:00 BMP [Basic Metabolic Panel] AM 0400 Complete Blood Count w/o Diff [HEME] AM 0400 Date of Encounter: 03/04/18 Time of Encounter: 09:40 - Discharge Diagnosis (1) HCAP (healthcare-associated pneumonia) Priority: Primary Status: Acute Assessment and Plan: 62 year old female PMHx HTN, hyperlipidemia, DM, CAD, on HD MWF presented with hypoglycemia in the 30s. She was assessed with hypoglycemia 2/2 to insulin and insulin was held on admission. He blood sugars were monitored and her home dose of 40units of lantus was cut down to 10 units on discharge after her blood sugars trended up without insulin. She was also assessed with acute hypoxic respiratory failure 2/2 to volume overload and she got dialysis with improvement in her symptoms. She was also also treated for possible sepsis 2/2 to pneumonia. Sputum cultures grew gram negative linda which came back with ESBL E coli. She had been on course of levaquin and cefepime which were switched to po levaquin and augmentin on discharge based on sensitivities. She was discharge home in a stable condition after she refused rehab. (2) Acute on chronic respiratory failure with hypoxia and hypercapnia Priority: Primary Status: Acute Assessment and Plan: Mostly due to volume overload with missing HD Cont HD as scheduled by Nephro Will use BiPAP PRN for now cont close monitoring Duoneb q4hr NATALIE (3) ESRD (end stage renal disease) on dialysis Priority: Secondary Status: Chronic Assessment and Plan: HD as per Nephro recommendation (4) DVT prophylaxis Priority: Secondary Status: Acute Assessment and Plan: subq heparin. (5) Hypoglycemia Priority: Secondary Status: Acute Assessment and Plan: resolved. Blood sugars in the 200s this am. Resume lantus at 10units at bedtime (6) Elevated troponin Priority: Secondary Status: Acute Assessment and Plan: Slightly elevated and stable @ 0.05 Denies chest pain Mostly demand ischemia no further work up needed (7) UTI (urinary tract infection) Priority: Secondary Status: Acute Assessment and Plan: UA + Urine cx from 02/25 - no growth Blood cx - No growth Qualifiers: Urinary tract infection type: acute cystitis Qualified Code(s): N30.00 - Acute cystitis without hematuria (8) Acute metabolic encephalopathy Priority: Secondary Status: Acute Assessment and Plan: likely secondary to hypoglycemia Improved now Urine cx from 02/25 - no growth Blood cx - no growth (9) Hypokalemia Priority: Secondary Status: Acute Assessment and Plan: improved (10) Diabetes Priority: Secondary Status: Acute Assessment and Plan: Diabetes is poorly controlled. Multiple hospitalizations for poor glycemic control. Last A1C 02/01/18 = 8.8 continue holding insulin due to hypoglycemia. May not need Insulin She can be ok with PO Glimepride at low dose Qualifiers: Diabetes mellitus type: type 2 Qualified Code(s): E11.9 - Type 2 diabetes mellitus without complications (11) SIRS (systemic inflammatory response syndrome) Priority: Secondary Status: Acute Assessment and Plan: Does meet SISR criteria with low grade temp and Tachycardia Unclear etiology suspecting PNA blood cx no growth Urine cx from 517 no growth CXR - infiltrates in both lungs Cont empirical abx Levaquin Sputum cx - P Hospital course: Ms. Riley is a 62 year old female - Time Spent with Patient Total time spent providing and/or coordinating discharge services: - Discharge Medications Prescriptions: Amoxicillin/Clavulanate [Augmentin] 500 mg PO DAILY #5 tablet Insulin DETEMIR [Levemir] 10 unit SQ HS #30 [id number] levoFLOXacin [Levaquin] 500 mg PO Q48H #3 tablet Home Medications: Omeprazole [PriLOSEC] 20 mg PO DAILY 05/11/15 [History] Colestipol HCl [Colestid] 1 gm PO BID 06/12/15 [History] Carvedilol 12.5 mg PO BID 10/28/15 [History] Calcium Acetate [Phos-LO] 1,334 mg PO TIDWM 09/06/16 [History] Folic Acid/Vit Bcomp,C [Renal Vitamin Tablet] 0.8 mg PO DAILY 04/15/17 [History] ARIPiprazole [Abilify] 10 mg PO DAILY 09/13/17 [History] Aspirin Enteric Coated [Aspirin EC] 81 mg PO DAILY 09/13/17 [History] Budesonide/Formoterol 160/4.5 [Symbicort 160/4.5] 2 puff IH BIDR 09/13/17 [ History] Cholecalciferol (Vitamin D3) [Vitamin D3] 50,000 unit PO TH 09/13/17 [History] OxyCODONE/APAP 10/325 [Percocet 10/325 MG] 1 tab PO Q6H PRN 09/13/17 [History] Sennosides [Senna] 8.6 mg PO BID PRN 09/13/17 [History] Sevelamer [Renvela] 800 mg PO TID 09/13/17 [History] Albuterol Neb [AccuNeb] 0.63 mg IH Q6H PRN 10/18/17 [History] Gabapentin [Neurontin] 100 mg PO TID #60 capsule 10/21/17 [Rx] Oxybutynin [Ditropan] 5 mg PO TID 11/11/17 [History] Insulin LISPRO [Humalog Kwikpen U-100] 0 unit SQ ACHS 11/25/17 [History] Acetaminophen [Tylenol] 650 mg PO Q6HR PRN tablet 12/14/17 [Rx] Amitriptyline HCl 100 mg PO HS 12/22/17 [History] Morphine Sulfate SR (12 HR) [MS Contin] 30 mg PO Q12HR 12/22/17 [History] amLODIPine [Norvasc] 5 mg PO DAILY 12/30/17 [History] Metoclopramide [Reglan] 5 mg PO TIDAC #15 ud.liq 01/13/18 [Rx] Clopidogrel [Plavix] 75 mg PO DAILY 02/03/18 [History] Collagenase Oint [Santyl] 1 appl TP DAILY #1 tube 02/09/18 [Rx] Saccharomyces Boulardii [Florastor] 250 mg PO BID #20 capsule 02/09/18 [Rx] Rosuvastatin Calcium [Crestor] 20 mg PO DAILY 02/27/18 [History] metOLazone [Zaroxolyn] 2.5 mg PO DAILY 02/27/18 [History] Amoxicillin/Clavulanate [Augmentin] 500 mg PO DAILY #5 tablet 03/04/18 [Rx] Insulin DETEMIR [Levemir] 10 unit SQ HS #30 [id number] 03/04/18 [Rx] levoFLOXacin [Levaquin] 500 mg PO Q48H #3 tablet 03/04/18 [Rx] Allergies/Adverse Reactions: 3 Allergy/AdvReac Type Severity Reaction Status Date / Time No Known Allergies Allergy Verified 02/03/18 12:01 Date of admission: 02/27/18 06:53 Primary care physician: Tristen Quintana MD Consults: 02/27/18 08:57 Consult to Nutrition [CONS] Routine Comment: Consulting Provider: NUTRITION Reason for Dietary Consult: Diet Education 02/27/18 11:55 Consult to Nephrology [CONS] Routine Consulting Provider: Kidney Olivia/MARCO/SWAPNA/MILLIE Reason for Consult: ESRD need HD Time Notified: 11:55 Call Completed: Yes 02/28/18 06:25 Consult to Invasive Line Access Team [CONS] Stat Reason for Consult: PG insertion. hypoglycemia. multiple attempts Line Type: EPIV 02/28/18 07:15 Consult to Dialysis [CONS] ONCE 02/28/18 14:03 Consult to Wound Care [CONS] Routine Reason for Consult: Wound on Coccyx. Time Notified: 14:03 Call Completed: Yes 03/01/18 10:15 Consult to Dialysis [CONS] ONCE 03/02/18 06:30 Consult to Dialysis [CONS] ONCE 03/03/18 19:00 Consult to Dialysis [CONS] ONCE - Constitutional Vitals: Temp Pulse Resp BP Pulse Ox 100.5 F H 94 18 134/47 92 03/04/18 08:53 03/04/18 04:16 03/04/18 08:53 03/04/18 08:53 03/04/18 04:16 General appearance: Present: A&O X 3, obese - Head Head exam: Present: atraumatic, normocephalic - Eye Eye exam: Present: PERRL, conjuntiva pink, sclera anicteric Pupils: Present: PERRL - Neck Neck exam general surgery: Present: supple, trachea midline. Absent: lymphadenopathy - Respiratory Respiratory exam: Present: CTAB. Absent: accessory muscle use, rales, rhonchi, wheezes - Cardiovascular Cardiovascular exam: Present: RRR, +S1, +S2. Absent: diastolic murmur, gallop, rubs, systolic murmur - GI/Abdominal GI/Abdominal exam: Present: normal bowel sounds, soft, no peritoneal signs. Absent: distended, tenderness - Extremities Exam Extremities exam: Present: warm, radial pulses palpable and symmetrical. Absent : calf tenderness, cyanotic, pedal edema - Neurological Exam Neurological exam: Present: CN II-XII intact, oriented X3, no focal deficits. Absent: pronater drift, facial droop, speech deficit - Skin Skin exam: Present: dry, intact - Patient Status Disposition: Home Health Service Condition: Fair - Discharge Instructions Instructions: Diabetic Hypoglycemia (DC), Sepsis (DC), Altered Mental Status ( GEN) Follow Up With: Tristen Quintana MD [Primary Care Provider] - 03/09/18 2:15 pm (please follow up as schedule...)
[2018-03-04] MEDS: amLODIPine 5 MG TABLET PO SCH (10:00)
[2018-03-04] MEDS: Aspirin Enteric Coated 81 MG Tablet PO SCH (10:00)
[2018-03-04] MEDS: Gabapentin 100 MG CAPSULE PO SCH (10:00)
[2018-03-04] MEDS: ARIPiprazole 10 MG TABLET PO SCH (10:00)
[2018-03-04] MEDS: Cholecalciferol (D-3) 1,000 UNIT TABLET PO SCH (10:00)
[2018-03-04] MEDS: Calcium Acetate 667 MG CAPSULE PO SCH (10:01)
[2018-03-04] MEDS: Lactobacillus 1 EACH CAP.SPRINK PO SCH (10:01)
[2018-03-04 10:28] VITALS: BP 132/74
--- NOTE | 2018-03-04 11:01 | Physician Discharge Referral ---
Home Health/Hosp Referral Info Transfer to: Home Health - Diagnosis (1) HCAP (healthcare-associated pneumonia) Priority: Primary Status: Acute (2) Acute on chronic respiratory failure with hypoxia and hypercapnia Status: Acute (3) ESRD (end stage renal disease) on dialysis Status: Chronic (4) DVT prophylaxis Status: Acute (5) Hypoglycemia Status: Acute (6) Elevated troponin Status: Acute (7) UTI (urinary tract infection) Status: Acute (8) Acute metabolic encephalopathy Status: Acute (9) Hypokalemia Status: Acute (10) Diabetes Status: Acute (11) SIRS (systemic inflammatory response syndrome) Status: Acute (12) Pneumonia Status: Acute - Respiratory Orders Smoking Cessation: Smoking cessation has been advised. For more information, call the [employer] Quit Line at 9-116-NGOG-NOW. - Diet/Nutrition Diet/Nutrition Orders: Cardiac - Activity Activity Orders: Ambulate - Services Needed Following services are medically necessary services: Nursing, Home Health Aide, Physical Therapy - Transfer Medications Prescriptions: Amoxicillin/Clavulanate [Augmentin] 500 mg PO DAILY #5 tablet Insulin DETEMIR [Levemir] 10 unit SQ HS #30 [id number] levoFLOXacin [Levaquin] 500 mg PO Q48H #3 tablet Home Medications: Omeprazole [PriLOSEC] 20 mg PO DAILY 05/11/15 [History] Colestipol HCl [Colestid] 1 gm PO BID 06/12/15 [History] Carvedilol 12.5 mg PO BID 10/28/15 [History] Calcium Acetate [Phos-LO] 1,334 mg PO TIDWM 09/06/16 [History] Folic Acid/Vit Bcomp,C [Renal Vitamin Tablet] 0.8 mg PO DAILY 04/15/17 [History] ARIPiprazole [Abilify] 10 mg PO DAILY 09/13/17 [History] Aspirin Enteric Coated [Aspirin EC] 81 mg PO DAILY 09/13/17 [History] Budesonide/Formoterol 160/4.5 [Symbicort 160/4.5] 2 puff IH BIDR 09/13/17 [ History] Cholecalciferol (Vitamin D3) [Vitamin D3] 50,000 unit PO TH 09/13/17 [History] OxyCODONE/APAP 10/325 [Percocet 10/325 MG] 1 tab PO Q6H PRN 09/13/17 [History] Sennosides [Senna] 8.6 mg PO BID PRN 09/13/17 [History] Sevelamer [Renvela] 800 mg PO TID 09/13/17 [History] Albuterol Neb [AccuNeb] 0.63 mg IH Q6H PRN 10/18/17 [History] Gabapentin [Neurontin] 100 mg PO TID #60 capsule 10/21/17 [Rx] Oxybutynin [Ditropan] 5 mg PO TID 11/11/17 [History] Insulin LISPRO [Humalog Kwikpen U-100] 0 unit SQ ACHS 11/25/17 [History] Acetaminophen [Tylenol] 650 mg PO Q6HR PRN tablet 12/14/17 [Rx] Amitriptyline HCl 100 mg PO HS 12/22/17 [History] Morphine Sulfate SR (12 HR) [MS Contin] 30 mg PO Q12HR 12/22/17 [History] amLODIPine [Norvasc] 5 mg PO DAILY 12/30/17 [History] Metoclopramide [Reglan] 5 mg PO TIDAC #15 ud.liq 01/13/18 [Rx] Clopidogrel [Plavix] 75 mg PO DAILY 02/03/18 [History] Collagenase Oint [Santyl] 1 appl TP DAILY #1 tube 02/09/18 [Rx] Saccharomyces Boulardii [Florastor] 250 mg PO BID #20 capsule 02/09/18 [Rx] Rosuvastatin Calcium [Crestor] 20 mg PO DAILY 02/27/18 [History] metOLazone [Zaroxolyn] 2.5 mg PO DAILY 02/27/18 [History] Amoxicillin/Clavulanate [Augmentin] 500 mg PO DAILY #5 tablet 03/04/18 [Rx] Insulin DETEMIR [Levemir] 10 unit SQ HS #30 [id number] 03/04/18 [Rx] levoFLOXacin [Levaquin] 500 mg PO Q48H #3 tablet 03/04/18 [Rx] Allergies/Adverse Reactions: 3 Allergy/AdvReac Type Severity Reaction Status Date / Time No Known Allergies Allergy Verified 02/03/18 12:01 Certification: Further, I certify that my clinical findings support that this patient is homebound (i.e. absences from home require considerable and taxing effort and are for medical reasons or holiness services or infrequently or short duration when for other reasons) because: Homebound Reason: Patient requires assistance of a person or device to safely leave home Attestation: My signature below is to certify that this patient is under my care and that I, or nurse practitioner, or a physician's design assistant working with me, has a face-to -face encounter with this patient.
[2018-03-04] MEDS ORDERED: levoFLOXacin 500 MG TABLET PO SCH (14:00)
[2018-03-04] MEDS ORDERED: Cefepime HCl 1,000 MG in Water for inj. (sterile) 20 ML 10 ML IVP SCH (16:00)
== END 2018-03-04 11:43 | disposition home health service (06) | DRG 637 ==
LOC: EMEROO 00:22 → ICNU 06:53 → 2ANU 15:16
PROVIDERS: ADMIT Family Medicine; ATTEND Family Medicine

== ENCOUNTER 2018-03-14 19:56 | Observation (INO) ==
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
[2018-03-14] MEDS ORDERED: *HR* Dextrose 50 % in Water (Syg) 50 ML SYRINGE IVP PRN (20:56)
[2018-03-14 21:30] LABS: VBG HCO3 22 mEq/L (21-27); VBG PCO2 39 mmHg (41-51); VBG PH 7.37 pH Units (7.32-7.42); VBG PO2 173 mmHg (25-50)
[2018-03-14] MEDS ORDERED: Aspirin 325 MG TABLET PO ONE (21:38)
[2018-03-14 22:13] LABS: Albumin/Globulin Ratio 0.8 (1.1-2.2); Bilirubin,Total 0.4 mg/dL (0.3-1.0); Calcium 9.1 mg/dL (8.6-10.3); Globulin 3.8 g/dL (2.4-3.5); Magnesium 1.7 mg/dL (1.6-2.6); Phosphorous 4.5 mg/dL (2.7-4.5); Potassium 3.8 mEq/L (3.5-5.1); Total Protein 6.8 g/dL (6.4-8.9); Troponin I 0.61 ng/mL (< 0.04)
[2018-03-14 22:38] LABS: Bilirubin,Urine Small (Negative); Blood,Urine Small (Negative); Clarity,Urine Turbid (Clear); Color,Urine Yellow (Yellow); Glucose,Urine (UA) >=1000 mg/dL (Normal); Ketones,Urine Negative (Negative); Leukocyte Esterase,Urine Large (Negative); Nitrite,Urine Positive (Negative); Protein,Urine 100 mg/dL (Neg-Trace); Specific Gravity,Urine 1.023 (1.010-1.025); Urobilinogen,Urine Normal (Normal)
[2018-03-14 22:40] LABS: Bacteria,Urine Moderate per hpf (None-Few); Squamous Epithelial Cell,Urine Many per lpf (None-Few); WBC,Urine TNTC per hpf (0-3)
[2018-03-14] MEDS: 0.9 % Sodium Chloride 1,000 ML IVC SCH ×2 (22:56→23:21)
[2018-03-14] MEDS ORDERED: cefTRIAXone 1,000 MG in Water for inj. (sterile) 20 ML 10 ML IVP ONE (23:00)
[2018-03-15 00:11] LABS: Basophils % 0.2 %; Eosinophils # 0.2 K/mcL (0.0-0.6); Eosinophils % 1.7 %; Hematocrit 24.7 % (35.3-44.9); Hemoglobin 8.2 g/dL (11.5-15.4); Immature Granulocytes % 0.6 % (0-4); Lymphocytes # 1.4 K/mcL (0.6-4.6); Lymphocytes % 14.2 %; Mean Corpuscular HGB Conc 33.2 g/dL (31.6-35.5); Mean Corpuscular Hemoglobin 28.1 pg (28.0-33.3); Mean Corpuscular Volume 84.6 fL (83.0-100.0); Mean Platelet Volume 9.9 fL (9.4-12.4); Monocytes # 0.7 K/mcL (0.0-1.3); Monocytes % 7.3 %; Neutrophils # 7.5 K/mcL (1.6-8.9); Platelet Count 156 K/mcL (140-400); Red Blood Count 2.92 M/mcL (3.82-4.97); Red Cell Distribution Width 15.5 % (11.5-14.5)
[2018-03-15] MEDS ORDERED: Naloxone 0.4 MG/ML INJ IVP PRN (00:36)
[2018-03-15] MEDS ORDERED: Acetaminophen 325 MG TABLET PO PRN (00:36)
[2018-03-15] MEDS ORDERED: D5% in Water 1,000 ML IVC PRN (00:40)
[2018-03-15] MEDS ORDERED: Dextrose Gel 15 GM/37.5 ML TUBE PO PRN ×2 (00:40)
[2018-03-15] MEDS ORDERED: *HR* Dextrose 50 % in Water (Syg) 50 ML SYRINGE IVP PRN (00:40)
--- NOTE | 2018-03-15 00:47 | Internal Med History&Physical ---
Date of Encounter: 03/15/18 Time of Encounter: 00:30 Internal Medicine - H&P: HPI Chief complaint: High blood sugars Admitted From: Emergency Dept Plans for Post Hospital Care: Transfer Residential Facility History of present illness: Ms. Riley is a 63 year old female patient well known to this facility with recurrent multiple hospitalizations including one week back presented to the ER with complaints of high blood sugars and high blood pressures. She lives at home and receives home health. She has a history of CHF, COPD, diabetes, coronary artery disease status post coronary artery bypass, end-stage renal disease on hemodialysis, recurrent urinary tract infections with multidrug resistant organisms. She was apparently advised by her primary care provider to come to the ER as she was not able to take care of herself at home and was having high blood sugars. She had just been discharged from the hospital on after she was treated for acute on chronic respiratory failure, healthcare associated pneumonia, episodes of hypoglycemia and acute urinary tract infection. At that time she had been recommended transfer to rehabilitation for recuperation but she wished to go home instead. As such home health was arranged. She had been diagnosed with ESBL Escherichia coli in urine and sputum along with vancomycin-resistant Enterococcus faecium in urine. She also had Klebsiella multidrug resistant organism in her sputum. She was discharged on Augmentin and Levaquin based on sensitivities. She is currently very sleepy and not able to provide much history. History has therefore been obtained through review of ED records. She presently denies any chest pain or shortness of breath. She does complain of low back pain. Patient also has a stage 3 coccyx pressure ulcer with a wound VAC in place. According to ED records, this was apparently not been changed as recommended. Past Med Surg Social Fam HX - Past Medical History Attestation: Yes The following information was validated with the patient. Source: patient Medical history: atrial fibrillation, CHF, COPD, diabetes, myocardial infarction , other (ESRD on hemodialysis) Additional medical history: no defecits from previous CVA Psychiatric history: anxiety, depression, schizophrenia, previous psychiatric hospitalization - Past Surgical History Surgical History: angioplasty/stent, appendectomy, cholecystectomy, coronary bypass (CABG), hysterectomy, knee replacement, other, IVC filter Additional surgical history: CABG 2002,BILAT KNEE REPLACEMENTS,TONSILLECTOMY,3- 4 CARDIAC STENTS, ORIF RT ARM - Social History Smoking Status: Current every day smoker Smokeless Tobacco Status: No Alcohol use: none Drug use: none - Family History Father Family Member Ethnicity: Non- Living Status: Hx Family Cardiac Disorders: Yes Hx Family Respiratory Disorders: Yes Hx Family Cancer: Yes (Polycythemia) Hx Family Endocrine Disorder: Yes (DM) Mother Family Member Ethnicity: Non- Living Status: Still Living Hx Family Cardiac Disorders: Yes Hx Family Respiratory Disorders: Yes (asthma, COPD) Brother Adopted: No Family Member Ethnicity: Non- Living Status: Still Living Hx Family Cardiac Disorders: No Hx Family Respiratory Disorders: No Hx Family Cancer: No Hx Family GI Disorders: No Hx Family Endocrine Disorder: No Hx Family Neuromuscular Disorders: No Hx Family Neurologic Disorders: No Hx Family HEENT Disorders: No Hx Family Autoimmune Disorders: No Sister Adopted: No Family Member Ethnicity: Non- Living Status: Still Living Hx Family Cardiac Disorders: Yes Hx Family Respiratory Disorders: No Hx Family Cancer: No Hx Family GI Disorders: No Hx Family Endocrine Disorder: Yes Hx Family Neuromuscular Disorders: No Hx Family Neurologic Disorders: No Hx Family HEENT Disorders: No Hx Family Autoimmune Disorders: No Internal Medicine - H&P: Meds Omeprazole [PriLOSEC] 20 mg PO DAILY 05/11/15 [History] Colestipol HCl [Colestid] 1 gm PO BID 06/12/15 [History] Carvedilol 12.5 mg PO BID 10/28/15 [History] Calcium Acetate [Phos-LO] 1,334 mg PO TIDWM 09/06/16 [History] Folic Acid/Vit Bcomp,C [Renal Vitamin Tablet] 0.8 mg PO DAILY 04/15/17 [History] ARIPiprazole [Abilify] 10 mg PO DAILY 09/13/17 [History] Aspirin Enteric Coated [Aspirin EC] 81 mg PO DAILY 09/13/17 [History] Budesonide/Formoterol 160/4.5 [Symbicort 160/4.5] 2 puff IH BIDR 09/13/17 [ History] Cholecalciferol (Vitamin D3) [Vitamin D3] 50,000 unit PO TH 09/13/17 [History] OxyCODONE/APAP 10/325 [Percocet 10/325 MG] 1 tab PO Q6H PRN 09/13/17 [History] Sennosides [Senna] 8.6 mg PO BID PRN 09/13/17 [History] Sevelamer [Renvela] 800 mg PO TID 09/13/17 [History] Albuterol Neb [AccuNeb] 0.63 mg IH Q6H PRN 10/18/17 [History] Gabapentin [Neurontin] 100 mg PO TID #60 capsule 10/21/17 [Rx] Oxybutynin [Ditropan] 5 mg PO TID 11/11/17 [History] Insulin LISPRO [Humalog Kwikpen U-100] 0 unit SQ ACHS 11/25/17 [History] Acetaminophen [Tylenol] 650 mg PO Q6HR PRN tablet 12/14/17 [Rx] Amitriptyline HCl 100 mg PO HS 12/22/17 [History] Morphine Sulfate SR (12 HR) [MS Contin] 30 mg PO Q12HR 12/22/17 [History] amLODIPine [Norvasc] 5 mg PO DAILY 12/30/17 [History] Metoclopramide [Reglan] 5 mg PO TIDAC #15 ud.liq 01/13/18 [Rx] Clopidogrel [Plavix] 75 mg PO DAILY 02/03/18 [History] Collagenase Oint [Santyl] 1 appl TP DAILY #1 tube 02/09/18 [Rx] Saccharomyces Boulardii [Florastor] 250 mg PO BID #20 capsule 02/09/18 [Rx] Rosuvastatin Calcium [Crestor] 20 mg PO DAILY 02/27/18 [History] metOLazone [Zaroxolyn] 2.5 mg PO DAILY 02/27/18 [History] Amoxicillin/Clavulanate [Augmentin] 500 mg PO DAILY #5 tablet 03/04/18 [Rx] Insulin DETEMIR [Levemir] 10 unit SQ HS #30 [id number] 03/04/18 [Rx] levoFLOXacin [Levaquin] 500 mg PO Q48H #3 tablet 03/04/18 [Rx] 3 Allergy/AdvReac Type Severity Reaction Status Date / Time No Known Allergies Allergy Verified 03/10/18 11:36 ROS unobtainable: due to mental status All Systems PM: A 10-system review of systems was performed and is negative for pertinent findings except as documented above in the HPI. - Constitutional Constitutional: malaise - Musculoskeletal Musculoskeletal ROS IM: back pain - Constitutional Vitals: Temp Pulse Resp BP Pulse Ox 97.4 F L 118 20 146/64 99 03/14/18 19:58 03/15/18 00:16 03/15/18 00:16 03/15/18 00:16 03/15/18 00:16 General appearance: Present: obese Exam: Patient is currently very somnolent. Awakes to questions but falls back to sleep immediately. Answers some questions appropriately. - Eye Eye exam: Present: EOMI, PERRL - Respiratory Respiratory exam: Present: CTAB. Absent: accessory muscle use, rales, rhonchi, wheezes - Cardiovascular Cardiovascular exam: Present: irregular rhythm, +S1, +S2. Absent: diastolic murmur, gallop, rubs, systolic murmur - GI/Abdominal GI/Abdominal exam: Present: normal bowel sounds, soft, no peritoneal signs. Absent: distended, tenderness - Extremities Exam Extremities exam: Present: warm, radial pulses palpable and symmetrical. Absent : calf tenderness, cyanotic, pedal edema - Neurological Exam Neurological exam: Present: CN II-XII intact, oriented X3, no focal deficits. Absent: facial droop, speech deficit - Skin Skin exam: Present: dry, intact Additional comments: Stage III sacral decubitus ulcer with wound VAC in place Internal Med - H&P Results - Labs CBC & Chem 7: 03/15/18 00:05 03/14/18 21:16 - EKG Data -: EKG Interpreted by Myself - EKG Data EKG comments: 03/15/18 00:54 Atrial fibrillation - Impressions Impressions Chest X-Ray 03/14/18 20:56 IMPRESSION: Findings suggesting pulmonary edema D/ / Farhat Miguel / Farhat Miguel Interpreting Provider: Farhat Miguel Chest X-Ray 03/14/18 22:58 IMPRESSION: A right internal jugular venous catheter has been placed in good position. D/ / Farhat Alvarenga MD / Farhat Alvarenga MD Interpreting Provider: Farhat Alvarenga MD - Assessment and plan (1) UTI (urinary tract infection) Current Visit: Yes Status: Acute Assessment and plan: Patient with history of multidrug resistant bacterial infection in urine. Could be colonization. Most recent cultures from 03/06 positive for Escherichia coli and VRE. We will send repeat cultures. For now will place patient on ertapenem and Zyvox. Qualifiers: Urinary tract infection type: acute cystitis Hematuria presence: with hematuria Qualified Code(s): N30.01 - Acute cystitis with hematuria (2) Anemia Current Visit: Yes Status: Chronic Assessment and plan: Hemoglobin 8.2. At baseline. Patient will receive Epogen as needed per nephrology recommendations Qualifiers: Anemia type: due to chronic kidney disease Chronic kidney disease stage: on chronic dialysis Qualified Code(s): N18.6 - End stage renal disease; D63.1 - Anemia in chronic kidney disease; Z99.2 - Dependence on renal dialysis (3) Chronic respiratory failure with hypoxia Current Visit: Yes Status: Chronic Assessment and plan: continue O2 supplementation to keep sats greater than 90% (4) COPD (chronic obstructive pulmonary disease) Current Visit: Yes Status: Chronic Assessment and plan: Currently not in acute exacerbation. Will place her on bronchodilators as needed Qualifiers: COPD type: unspecified COPD Qualified Code(s): J44.9 - Chronic obstructive pulmonary disease, unspecified (5) DMII (diabetes mellitus, type 2) Current Visit: Yes Status: Chronic Assessment and plan: Uncontrolled. Blood sugars are elevated. Will place her on sliding scale insulin and long-acting insulin. Monitor blood sugars closely. 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 (7) Pressure ulcer of sacral region, stage 3 Current Visit: Yes Status: Acute Assessment and plan: Wound VAC in place with. We will consult wound care for evaluation and follow- up recommendations. Frequent repositioning. Minimize pressure. (8) Atrial fibrillation Current Visit: Yes Status: Chronic Assessment and plan: Currently in RVR. We will place patient back on her usual medications. Use Lopressor 5 mg IV as needed to control heart rate. Patient not on anticoagulation due to anemia and prior history of vaginal bleed. Qualifiers: Atrial fibrillation type: chronic Qualified Code(s): I48.2 - Chronic atrial fibrillation (9) Elevated troponin Current Visit: Yes Status: Acute Assessment and plan: Troponins are elevated above baseline. Patient denies any chest pain at this time. Will trend troponins. Consider cardiology consult if continues to trend up. (10) Congestive heart failure Current Visit: Yes Status: Chronic Assessment and plan: Not in acute exacerbation. Continue home medications. Qualifiers: Heart failure type: diastolic Heart failure chronicity: chronic Qualified Code(s): I50.32 - Chronic diastolic (congestive) heart failure - Time Spent With Patient Total time spent is greater than 50% in coordination of care (as documented) at patient's floor/unit and/or counseling patient:
[2018-03-15] MEDS: Insulin DETEMIR 100 UNIT/ML X5UNITS SQ SCH ×2 (02:10→20:21)
[2018-03-15] MEDS: Insulin LISPRO 300 UNITS/3 ML VIAL SQ SCH ×5 (02:50→20:17)
[2018-03-15] MEDS ORDERED: Meropenem 1,000 MG in Water for inj. (sterile) 20 ML 10 ML IVPB ONE (03:00)
--- NOTE | 2018-03-15 06:06 | Emergency Department Note ---
Disposition Clinical Impression: Hyperglycemia, Elevated troponin I level, Sacral decubitus ulcer, stage II, ESRD on dialysis Anemia Qualifiers: Anemia type: unspecified type Qualified Code(s): D64.9 - Anemia, unspecified Atrial fibrillation Qualifiers: Atrial fibrillation type: chronic Qualified Code(s): I48.2 - Chronic atrial fibrillation Disposition: Admitted As Inpatient Condition: Fair General Adult HPI - General Chief complaint: ED General Medical Stated complaint: high b/p Time Seen by Provider: 03/14/18 20:09 Source: patient Limitations: no limitations - History of Present Illness Pain Scale: 0 Associated symptoms: Reports: denies other symptoms, cough. Denies: chest pain , fever/chills, nausea/vomiting, shortness of breath Treatments Prior to Arrival: none - Related Data Home Medications Medication Instructions Recorded Confirmed Omeprazole [PriLOSEC] 20 mg PO DAILY 05/11/15 02/27/18 Colestipol HCl [Colestid] 1 gm PO BID 06/12/15 02/27/18 Carvedilol 12.5 mg PO BID 10/28/15 02/27/18 Calcium Acetate [Phos-LO] 1,334 mg PO TIDWM 09/06/16 02/27/18 Folic Acid/Vit Bcomp,C [Renal 0.8 mg PO DAILY 04/15/17 02/27/18 Vitamin Tablet] ARIPiprazole [Abilify] 10 mg PO DAILY 09/13/17 02/27/18 Aspirin Enteric Coated [Aspirin EC] 81 mg PO DAILY 09/13/17 02/27/18 Budesonide/Formoterol 160/4.5 2 puff IH BIDR 09/13/17 02/27/18 [Symbicort 160/4.5] Cholecalciferol (Vitamin D3) 50,000 unit PO TH 09/13/17 02/27/18 [Vitamin D3] OxyCODONE/APAP 10/325 [Percocet 1 tab PO Q6H PRN 09/13/17 02/27/18 10/325 MG] Sennosides [Senna] 8.6 mg PO BID PRN 09/13/17 02/27/18 Sevelamer [Renvela] 800 mg PO TID 09/13/17 02/27/18 Albuterol Neb [AccuNeb] 0.63 mg IH Q6H PRN 10/18/17 02/27/18 Oxybutynin [Ditropan] 5 mg PO TID 11/11/17 02/27/18 Insulin LISPRO [Humalog Kwikpen 0 unit SQ ACHS 11/25/17 02/27/18 U-100] Amitriptyline HCl 100 mg PO HS 12/22/17 02/27/18 Morphine Sulfate SR (12 HR) [MS 30 mg PO Q12HR 12/22/17 02/27/18 Contin] amLODIPine [Norvasc] 5 mg PO DAILY 12/30/17 02/27/18 Clopidogrel [Plavix] 75 mg PO DAILY 02/03/18 02/27/18 Rosuvastatin Calcium [Crestor] 20 mg PO DAILY 02/27/18 02/27/18 metOLazone [Zaroxolyn] 2.5 mg PO DAILY 02/27/18 02/27/18 Previous Rx's Medication Instructions Recorded Gabapentin [Neurontin] 100 mg PO TID #60 capsule 10/21/17 Acetaminophen [Tylenol] 650 mg PO Q6HR PRN tablet 12/14/17 Metoclopramide [Reglan] 5 mg PO TIDAC #15 ud.liq 01/13/18 Collagenase Oint [Santyl] 1 appl TP DAILY #1 tube 02/09/18 Saccharomyces Boulardii [Florastor] 250 mg PO BID #20 capsule 02/09/18 Amoxicillin/Clavulanate [Augmentin] 500 mg PO DAILY #5 tablet 03/04/18 Insulin DETEMIR [Levemir] 10 unit SQ HS #30 [id number] 03/04/18 levoFLOXacin [Levaquin] 500 mg PO Q48H #3 tablet 03/04/18 Allergies Allergy/AdvReac Type Severity Reaction Status Date / Time No Known Allergies Allergy Verified 03/10/18 11:36 Past Medical History - Past Medical History Medical history: Reports: atrial fibrillation, CHF, COPD, diabetes, myocardial infarction, other Surgical history: Reports: angioplasty/stent, appendectomy, cholecystectomy, coronary bypass (CABG), hysterectomy, knee replacement, other, IVC filter Psychiatric history: Reports: anxiety, depression, schizophrenia, previous psychiatric hospitalization 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 - Social History Smoking Status: Current every day smoker Smokeless Tobacco Status: No Alcohol use: Reports: none Drug use: Reports: none Physical Exam - General Limitations: no limitations General appearance: alert, in no apparent distress Course Vital Signs Temperature 97.4 F L 03/14/18 19:58 Pulse Rate 110 03/14/18 19:58 Respiratory Rate 18 03/14/18 19:58 Blood Pressure 144/66 03/14/18 19:58 O2 Sat by Pulse Oximetry 97 03/14/18 19:58 Temperature 98.5 F 03/15/18 05:10 Pulse Rate 99 03/15/18 05:10 Respiratory Rate 18 03/15/18 05:10 Blood Pressure 116/65 03/15/18 05:10 O2 Sat by Pulse Oximetry 96 03/15/18 05:10 Oxygen Delivery Oxygen Delivery Room Air Procedures - Central Line Placement Right IJ Central Line Inserted*: Yes Central Line Insertion: emergent Consent Obtained: written consent Procedural Pause: verify patient name and date of , timeout performed per policy, perform hand hygiene Patient Placed on Monitor/Pulse Ox: Yes During the Procedure: clinician is wearing sterile gloves, cap, mask,& gown during insertion, sterile field and sterile technique are maintained, patient's face is covered with drape or mask and wearing a cap, everyone in room is wearing a mask Central Line Prep: Chlorhexidine scrub Prep the Procedure Site: apply chloraprep to the skin using a back and forth scrubbing motion, apply chloraprep for 30 seconds (upper body), 1-2 min ( femoral sites), allow prep to dry, drape the patient with a full body drape Local Anesthetic: lidocaine 1% Amount of anesthesia used (mL): 3 Ultrasound Used for Placement: Yes Central Line Lumen Inserted: triple (16 cm) Post Procedure: sutured in place, good blood return, all ports aspirated, flushed, capped, sterile dressing applied, guide wire removed and visualized Post Procedure X-Ray: tip of catheter in good position, no pneumothorax seen Patient Tolerated Procedure: well, no complications Complications: none Name of Clinician Inserting Central Line: Nhi Caceres DO PGY4 Medical Decision Making - Lab Data Result diagrams: 03/15/18 00:05 03/14/18 21:16 Lab Results 03/14/18 03/14/18 03/14/18 Range/Units 20:56 21:16 21:16 WBC (4.3-11.1) K/mcL RBC (3.82-4.97) M/mcL Hgb (11.5-15.4) g/dL Hct (35.3-44.9) % MCV (83.0-100.0) fL MCH (28.0-33.3) pg MCHC (31.6-35.5) g/dL RDW (11.5-14.5) % Plt Count (140-400) K/mcL MPV (9.4-12.4) fL Immature Gran % (0-4) % Seg Neutrophils % % Lymphocytes % % Monocytes % % Eosinophils % % Basophils % % Neutrophils # (1.6-8.9) K/mcL Lymphocytes # (0.6-4.6) K/mcL Monocytes # (0.0-1.3) K/mcL Eosinophils # (0.0-0.6) K/mcL Basophils # (0.0-0.2) K/mcL VBG pH (7.32-7.42) pH Units VBG pCO2 (41-51) mmHg VBG pO2 (25-50) mmHg VBG HCO3 (21-27) mEq/L Sodium 124 L (136-145) mEq/L Potassium 3.8 (3.5-5.1) mEq/L Chloride 90 L (98-107) mEq/L Carbon Dioxide 21 L (23-29) mEq/L BUN 48 H (8-23) mg/dL Creatinine 3.33 H (0.60-1.20) mg/dL Est GFR ( Amer) 17 L (> 60) Est GFR (Non-Af Amer) 14 L (> 60) BUN/Creatinine Ratio 14 (6-26) Glucose 574 H* (70-105) mg/dL Calculated Osmolality 297 (280-300) Lactic Acid 1.3 (0.5-2.2) mmol/L Calcium 9.1 (8.6-10.3) mg/dL Phosphorus 4.5 (2.7-4.5) mg/dL Magnesium 1.7 (1.6-2.6) mg/dL Total Bilirubin 0.4 (0.3-1.0) mg/dL AST 10 L (13-39) Units/L ALT 12 (7-52) Units/L Alkaline Phosphatase 233 H (34-104) Units/L Troponin I 0.61 H* (< 0.04) ng/mL Serum Total Protein 6.8 (6.4-8.9) g/dL Albumin 3.0 L (3.5-5.7) g/dL Globulin 3.8 H (2.4-3.5) g/dL Albumin/Globulin Ratio 0.8 L (1.1-2.2) Beta-Hydroxybutyric Acd 0.21 (0.02-0.27) mmol/L Urine Color (Yellow) Urine Clarity (Clear) Urine pH (5.0-8.0) pH Units Ur Specific Eldridge (1.010-1.025) Urine Protein (Neg-Trace) mg/dL Urine Glucose (UA) (Normal) mg/dL Urine Ketones (Negative) mg/dL Urine Blood (Negative) Urine Nitrite (Negative) Urine Bilirubin (Negative) Urine Urobilinogen (Normal) mg/dL Ur Leukocyte Esterase (Negative) Urine Microscopic RBC (0-3) per hpf Urine Microscopic WBC (0-3) per hpf Ur Squamous Epith Cells (None-Few) per lpf Urine Bacteria (None-Few) per hpf Hyaline Casts Urine Yeast Ur Culture Indicated? (NO) 03/14/18 03/14/18 03/15/18 Range/Units 21:27 22:20 00:05 WBC 9.8 (4.3-11.1) K/mcL RBC 2.92 L (3.82-4.97) M/mcL Hgb 8.2 L (11.5-15.4) g/dL Hct 24.7 L (35.3-44.9) % MCV 84.6 (83.0-100.0) fL MCH 28.1 (28.0-33.3) pg MCHC 33.2 (31.6-35.5) g/dL RDW 15.5 H (11.5-14.5) % Plt Count 156 (140-400) K/mcL MPV 9.9 (9.4-12.4) fL Immature Gran % 0.6 (0-4) % Seg Neutrophils % 76.0 % Lymphocytes % 14.2 % Monocytes % 7.3 % Eosinophils % 1.7 % Basophils % 0.2 % Neutrophils # 7.5 (1.6-8.9) K/mcL Lymphocytes # 1.4 (0.6-4.6) K/mcL Monocytes # 0.7 (0.0-1.3) K/mcL Eosinophils # 0.2 (0.0-0.6) K/mcL Basophils # 0.0 (0.0-0.2) K/mcL VBG pH 7.37 (7.32-7.42) pH Units VBG pCO2 39 L (41-51) mmHg VBG pO2 173 H (25-50) mmHg VBG HCO3 22 (21-27) mEq/L Sodium (136-145) mEq/L Potassium (3.5-5.1) mEq/L Chloride (98-107) mEq/L Carbon Dioxide (23-29) mEq/L BUN (8-23) mg/dL Creatinine (0.60-1.20) mg/dL Est GFR ( Amer) (> 60) Est GFR (Non-Af Amer) (> 60) BUN/Creatinine Ratio (6-26) Glucose (70-105) mg/dL Calculated Osmolality (280-300) Lactic Acid (0.5-2.2) mmol/L Calcium (8.6-10.3) mg/dL Phosphorus (2.7-4.5) mg/dL Magnesium (1.6-2.6) mg/dL Total Bilirubin (0.3-1.0) mg/dL AST (13-39) Units/L ALT (7-52) Units/L Alkaline Phosphatase (34-104) Units/L Troponin I (< 0.04) ng/mL Serum Total Protein (6.4-8.9) g/dL Albumin (3.5-5.7) g/dL Globulin (2.4-3.5) g/dL Albumin/Globulin Ratio (1.1-2.2) Beta-Hydroxybutyric Acd (0.02-0.27) mmol/L Urine Color Yellow (Yellow) Urine Clarity Turbid A (Clear) Urine pH 5.0 (5.0-8.0) pH Units Ur Specific [place]ridge 1.023 (1.010-1.025) Urine Protein 100 H (Neg-Trace) mg/dL Urine Glucose (UA) >=1000 H (Normal) mg/dL Urine Ketones Negative (Negative) mg/dL Urine Blood Small H (Negative) Urine Nitrite Positive A (Negative) Urine Bilirubin Small H (Negative) Urine Urobilinogen Normal (Normal) mg/dL Ur Leukocyte Esterase Large H (Negative) Urine Microscopic RBC 5-15 H (0-3) per hpf Urine Microscopic WBC TNTC H (0-3) per hpf Ur Squamous Epith Cells Many H (None-Few) per lpf Urine Bacteria Moderate H (None-Few) per hpf Hyaline Casts Test Not Performed Urine Yeast Test Not Performed Ur Culture Indicated? NO. A (NO)
[2018-03-15 06:55] LABS: Estimated Average Glucose 232 mg/dl; Hemoglobin A1C 9.7 %
[2018-03-15] MEDS ORDERED: Insulin LISPRO 300 UNITS/3 ML VIAL SQ SCH ×2 (07:30→21:00)
[2018-03-15 07:37] LABS: Troponin I 0.35 ng/mL (< 0.04)
[2018-03-15 07:41] LABS: Calcium 8.7 mg/dL (8.6-10.3); Potassium 4.2 mEq/L (3.5-5.1)
[2018-03-15] MEDS ORDERED: 0.9 % Sodium Chloride 250 ML IVC PRN (12:39)
[2018-03-15] MEDS ORDERED: 0.9 % Sodium Chloride 1,000 ML PRIME SCH (12:45)
[2018-03-15] MEDS ORDERED: *HR* Heparin 5,000 UNIT/ML VIAL ONE (13:17)
[2018-03-15] MEDS ORDERED: 0.9 % Sodium Chloride 2,000 ML ONE (13:17)
--- NOTE | 2018-03-15 13:48 | Event Note ---
Date of Encounter: 03/15/18 Time of Encounter: 13:32 (1) UTI (urinary tract infection) Patient with history of multidrug resistant bacterial infection in urine. Recently treated for UTI with Levaquin and cefepime. Suspect colonization. Hold on ATB (2) Anemia Hemoglobin 8.2. At baseline. Patient will receive Epogen as needed per nephrology recommendations (3) Chronic respiratory failure with hypoxia continue O2 supplementation to keep sats greater than 90% (4) COPD (chronic obstructive pulmonary disease) Currently not in acute exacerbation. Will place her on bronchodilators as needed (5) DMII (diabetes mellitus, type 2) Uncontrolled. Blood sugars are elevated. Will place her on sliding scale insulin and long-acting insulin. Monitor blood sugars closely. (6) ESRD (end stage renal disease) on dialysis per hx. Missed HD yesterday. Consult nephrology for dialysis (7) Pressure ulcer of sacral region, stage 3 chronic, present on admission. Wound care consulted (8) Atrial fibrillation with RVR on arrival. Now rate controlled. Cont home BB. No anticoagulation due to anemia and prior history of vaginal bleed. (9) Elevated troponin troponin peaked at 12/2017 [facility] with SVG to RPDA mid 40% lesion, Proximal LAD 60% lesion, Distal CIRC ISR 40% and Occluded RCA. Cardiology consulted (10) Congestive heart failure Not in acute exacerbation. Continue home medications.
--- NOTE | 2018-03-15 14:25 | Cardiology Consult Note ---
Date of Encounter: 03/16/18 Time of Encounter: 11:11 Assessment and Plan (1) Elevated troponin Current Visit: Yes Status: Acute Pt does report variable history and it is unclear what component of her symptomatic profile is acute. Suspect AF-RVR and volume overload (given that she has worsening SOA/edema, and that she missed HD on 04/03/18). ACS seems less likely, however, she does a very extensive list of risk-enhancing comorbidities including CABD/LHC/stents. Troponins are trending down at this time. Most likely represents demand ischemia within broader clinical context. - Adhere to HD as scheduled - rec close monitoring of weights and I/O - cont monitoring for symptoms - cont on telemetry - heart rate continues to be mildly tachycardic - see attending attestation for further recommendations Discussion w patient/family: The assessment and plan as outlined above was discussed with the patient and/or family members who expressed understanding and agreement. All questions were answered. Thank you for involving us in the care of your patient. Please call with any questions. History of Present Illness Consult date: 03/15/18 Requesting physician: Cammie Campbell Consult reason: Elevated troponin above baseline History of present illness: Ms. Riley is a 63 year old female with multiple comorbidities including CAD S/ P stent in 12/2017, CHF, COPD, DM 2, dyspepsia, chronic respiratory failure on home O2, historically rate controlled atrial fibrillation, and ESRD on hemodialysis 3x/week. Also has history of coronary artery bypass graft. Admitted on 02/27/2018 with AMS, hypoglycemia, HCAP, and recurrent urinary tract infections. Discharge 03/04/2018 on PO antibiotics; went home despite recommendations to recover in a SNF. Currently, patient is readmitted with AF-RVR, elevated blood pressures, and mod- sever hyperglycemia. Cardiology consulted for elevated troponins beyond baseline. Subjective history seems incongruent with what was provided to admitting hospitalist. Pt states has been having retrosternal burning pain for about 2 weeks that is constant, mild-moderate, worse when supine, worse with exertion, and relieved with eating. Denies fevers, chills, diaphoresis, myalgias, lightheadedness, syncope, nausea, or vomiting. She states her heart has been racing, worsened pedal edema compared to usual, worsening shortness of breath since hospital discharge, and ongoing productive cough. Usually has HD on MWF, but missed appt on 03/14/18. States takes all prescribed medications consistently. ECHO in 12/2017 demonstrated LVEF of 60%, mild LV diastolic dysfunction, mild AR , mild MR, mild TR, and mild pulmonary HTN. Also had LHC in December 2017 with multivessel stenosis including significant RCA occlusions. Past Med Surg Social Fam HX - Past Medical History Medical history: CHF, COPD, diabetes, myocardial infarction Additional medical history: no defecits from previous CVA Psychiatric history: anxiety, depression, schizophrenia, previous psychiatric hospitalization - Past Surgical History Surgical History: angioplasty/stent, appendectomy, cholecystectomy, coronary bypass (CABG), hysterectomy, knee replacement, other, IVC filter Additional surgical history: CABG 2002,BILAT KNEE REPLACEMENTS,TONSILLECTOMY,3- 4 CARDIAC STENTS, ORIF RT ARM - Social History Smoking Status: Current every day smoker Smokeless Tobacco Status: No Alcohol use: none Drug use: none - Family History Father History Unknown: Yes Family Member Ethnicity: Non- Living Status: Hx Family Cardiac Disorders: Yes Hx Family Respiratory Disorders: Yes Hx Family Cancer: Yes (Polycythemia) Hx Family Endocrine Disorder: Yes (DM) Mother History Unknown: Yes Family Member Ethnicity: Non- Living Status: Still Living Hx Family Cardiac Disorders: Yes Hx Family Respiratory Disorders: Yes (asthma, COPD) Brother History Unknown: Yes Adopted: No Family Member Ethnicity: Non- Living Status: Still Living Hx Family Cardiac Disorders: No Hx Family Respiratory Disorders: No Hx Family Cancer: No Hx Family GI Disorders: No Hx Family Endocrine Disorder: No Hx Family Neuromuscular Disorders: No Hx Family Neurologic Disorders: No Hx Family HEENT Disorders: No Hx Family Autoimmune Disorders: No Sister History Unknown: Yes Adopted: No Family Member Ethnicity: Non- Living Status: Still Living Hx Family Cardiac Disorders: Yes Hx Family Respiratory Disorders: No Hx Family Cancer: No Hx Family GI Disorders: No Hx Family Endocrine Disorder: Yes Hx Family Neuromuscular Disorders: No Hx Family Neurologic Disorders: No Hx Family HEENT Disorders: No Hx Family Autoimmune Disorders: No Medications and Allergies Omeprazole [PriLOSEC] 20 mg PO DAILY 05/11/15 [History] Colestipol HCl [Colestid] 1 gm PO BID 06/12/15 [History] Carvedilol 12.5 mg PO BID 10/28/15 [History] Calcium Acetate [Phos-LO] 1,334 mg PO TIDWM 09/06/16 [History] Folic Acid/Vit Bcomp,C [Renal Vitamin Tablet] 0.8 mg PO DAILY 04/15/17 [History] ARIPiprazole [Abilify] 10 mg PO DAILY 09/13/17 [History] Aspirin Enteric Coated [Aspirin EC] 81 mg PO DAILY 09/13/17 [History] Budesonide/Formoterol 160/4.5 [Symbicort 160/4.5] 2 puff IH BIDR 09/13/17 [ History] Cholecalciferol (Vitamin D3) [Vitamin D3] 50,000 unit PO TH 09/13/17 [History] OxyCODONE/APAP 10/325 [Percocet 10/325 MG] 1 tab PO Q6H PRN 09/13/17 [History] Sennosides [Senna] 8.6 mg PO BID PRN 09/13/17 [History] Sevelamer [Renvela] 800 mg PO TID 09/13/17 [History] Albuterol Neb [AccuNeb] 0.63 mg IH Q6H PRN 10/18/17 [History] Gabapentin [Neurontin] 100 mg PO TID #60 capsule 10/21/17 [Rx] Oxybutynin [Ditropan] 5 mg PO TID 11/11/17 [History] Insulin LISPRO [Humalog Kwikpen U-100] 0 unit SQ ACHS 11/25/17 [History] Acetaminophen [Tylenol] 650 mg PO Q6HR PRN tablet 12/14/17 [Rx] Amitriptyline HCl 100 mg PO HS 12/22/17 [History] Morphine Sulfate SR (12 HR) [MS Contin] 30 mg PO Q12HR 12/22/17 [History] amLODIPine [Norvasc] 5 mg PO DAILY 12/30/17 [History] Metoclopramide [Reglan] 5 mg PO TIDAC #15 ud.liq 01/13/18 [Rx] Clopidogrel [Plavix] 75 mg PO DAILY 02/03/18 [History] Collagenase Oint [Santyl] 1 appl TP DAILY #1 tube 02/09/18 [Rx] Saccharomyces Boulardii [Florastor] 250 mg PO BID #20 capsule 02/09/18 [Rx] Rosuvastatin Calcium [Crestor] 20 mg PO DAILY 02/27/18 [History] metOLazone [Zaroxolyn] 2.5 mg PO DAILY 02/27/18 [History] Insulin DETEMIR [Levemir] 10 unit SQ HS #30 [id number] 03/04/18 [Rx] 3 Allergy/AdvReac Type Severity Reaction Status Date / Time No Known Allergies Allergy Verified 03/10/18 11:36 All Systems Review: The remainder of the systems were reviewed and are negative Physical Examination Vital Signs, Last 4 Hours Temp Pulse Resp BP Pulse Ox 03/15/18 11:33 99.0 F 98 19 154/75 95 Results 03/16/18 05:00 03/16/18 05:00 Lab Results 03/15/18 03/15/18 06:24 12:38 Sodium 129 L Potassium 4.2 Chloride 97 L Carbon Dioxide 20 L BUN 47 H Creatinine 3.24 H Glucose 254 H Calcium 8.7 Troponin I 0.35 H* 0.32 H* Consult Discharge Plan - Plan Referrals: Tristen Quintana MD [Primary Care Provider] -
--- NOTE | 2018-03-15 16:48 | Electrocardiograph Report ---
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
[2018-03-15] MEDS: *HR* Morphine Sulfate SR (12 HR) 15 MG TABLET.ER PO SCH (17:47)
[2018-03-15] MEDS: ceFAZolin 1,000 MG in 0.9 % Sodium Chloride Mini Bag 100 ML IVPB SCH (17:59)
--- NOTE | 2018-03-15 19:01 | Nephrology Consult Note ---
Date of Encounter: 03/16/18 Time of Encounter: 12:00 Assessment and Plan (1) ESRD (end stage renal disease) on dialysis Current Visit: Yes Status: Chronic Will arrange HD today 3 hrs with UF goal of 4kg as tolerated Renal diet advised Plan to also doalyze tomorrow shorter session to return back to her MWF regimen (2) Anemia Current Visit: Yes Status: Acute Hgb noted at 8.2, will monitor for now EPO in outpatient Qualifiers: Anemia type: unspecified type Qualified Code(s): D64.9 - Anemia, unspecified (3) Hyperglycemia Current Visit: No Status: Acute Per primary team (4) UTI (urinary tract infection) Current Visit: No Status: Acute Abx per primary team Qualifiers: Urinary tract infection type: acute cystitis Qualified Code(s): N30.00 - Acute cystitis without hematuria (5) Hyponatremia Current Visit: No Status: Chronic Sodium noted at 124 likely due to hyperglycemia and to a lesser degree fluid overload History of Present Illness - Reason for Consult Consult date: 03/15/18 end stage renal disease Requesting physician: Etelvina Gan - History of Present Illness 63 y o female with PMH of DM, HTN, CAD, CHF, recurrent UTI and ESRD on HD with a recurrent hospital stays just released last month admitted with high sugars and elevated BP readings. She was been adamant about being at home in the past everal moths despite recurrent hospital stays but now knows she is unable to take care of self at home despite [employer]HE[employer] DEPARTMENT CHAIR. She reports missing HD yesterday because she was "sick" and unable to move. She was then advised by pcp to present to the ER for eval today. She denied any CP, SOB or abd pain. Past Med Surg Social Fam HX - Past Medical History Medical history: CHF, COPD, diabetes, myocardial infarction Additional medical history: no defecits from previous CVA Psychiatric history: anxiety, depression, schizophrenia, previous psychiatric hospitalization - Past Surgical History Surgical History: angioplasty/stent, appendectomy, cholecystectomy, coronary bypass (CABG), hysterectomy, knee replacement, other, IVC filter Additional surgical history: CABG 2002,BILAT KNEE REPLACEMENTS,TONSILLECTOMY,3- 4 CARDIAC STENTS, ORIF RT ARM - Social History Smoking Status: Current every day smoker Smokeless Tobacco Status: No Alcohol use: none Drug use: none - Family History Father History Unknown: Yes Family Member Ethnicity: Non- Living Status: Hx Family Cardiac Disorders: Yes Hx Family Respiratory Disorders: Yes Hx Family Cancer: Yes (Polycythemia) Hx Family Endocrine Disorder: Yes (DM) Mother History Unknown: Yes Family Member Ethnicity: Non- Living Status: Still Living Hx Family Cardiac Disorders: Yes Hx Family Respiratory Disorders: Yes (asthma, COPD) Brother History Unknown: Yes Adopted: No Family Member Ethnicity: Non- Living Status: Still Living Hx Family Cardiac Disorders: No Hx Family Respiratory Disorders: No Hx Family Cancer: No Hx Family GI Disorders: No Hx Family Endocrine Disorder: No Hx Family Neuromuscular Disorders: No Hx Family Neurologic Disorders: No Hx Family HEENT Disorders: No Hx Family Autoimmune Disorders: No Sister History Unknown: Yes Adopted: No Family Member Ethnicity: Non- Living Status: Still Living Hx Family Cardiac Disorders: Yes Hx Family Respiratory Disorders: No Hx Family Cancer: No Hx Family GI Disorders: No Hx Family Endocrine Disorder: Yes Hx Family Neuromuscular Disorders: No Hx Family Neurologic Disorders: No Hx Family HEENT Disorders: No Hx Family Autoimmune Disorders: No Medications and Allergies Omeprazole [PriLOSEC] 20 mg PO DAILY 05/11/15 [History] Colestipol HCl [Colestid] 1 gm PO BID 06/12/15 [History] Carvedilol 12.5 mg PO BID 10/28/15 [History] Calcium Acetate [Phos-LO] 1,334 mg PO TIDWM 09/06/16 [History] Folic Acid/Vit Bcomp,C [Renal Vitamin Tablet] 0.8 mg PO DAILY 04/15/17 [History] ARIPiprazole [Abilify] 10 mg PO DAILY 09/13/17 [History] Aspirin Enteric Coated [Aspirin EC] 81 mg PO DAILY 09/13/17 [History] Budesonide/Formoterol 160/4.5 [Symbicort 160/4.5] 2 puff IH BIDR 09/13/17 [ History] Cholecalciferol (Vitamin D3) [Vitamin D3] 50,000 unit PO TH 09/13/17 [History] OxyCODONE/APAP 10/325 [Percocet 10/325 MG] 1 tab PO Q6H PRN 09/13/17 [History] Sennosides [Senna] 8.6 mg PO BID PRN 09/13/17 [History] Sevelamer [Renvela] 800 mg PO TID 09/13/17 [History] Albuterol Neb [AccuNeb] 0.63 mg IH Q6H PRN 10/18/17 [History] Gabapentin [Neurontin] 100 mg PO TID #60 capsule 10/21/17 [Rx] Oxybutynin [Ditropan] 5 mg PO TID 11/11/17 [History] Insulin LISPRO [Humalog Kwikpen U-100] 0 unit SQ ACHS 11/25/17 [History] Acetaminophen [Tylenol] 650 mg PO Q6HR PRN tablet 12/14/17 [Rx] Amitriptyline HCl 100 mg PO HS 12/22/17 [History] Morphine Sulfate SR (12 HR) [MS Contin] 30 mg PO Q12HR 12/22/17 [History] amLODIPine [Norvasc] 5 mg PO DAILY 12/30/17 [History] Metoclopramide [Reglan] 5 mg PO TIDAC #15 ud.liq 01/13/18 [Rx] Clopidogrel [Plavix] 75 mg PO DAILY 02/03/18 [History] Collagenase Oint [Santyl] 1 appl TP DAILY #1 tube 02/09/18 [Rx] Saccharomyces Boulardii [Florastor] 250 mg PO BID #20 capsule 02/09/18 [Rx] Rosuvastatin Calcium [Crestor] 20 mg PO DAILY 02/27/18 [History] metOLazone [Zaroxolyn] 2.5 mg PO DAILY 02/27/18 [History] Insulin DETEMIR [Levemir] 10 unit SQ HS #30 [id number] 03/04/18 [Rx] 3 Allergy/AdvReac Type Severity Reaction Status Date / Time No Known Allergies Allergy Verified 03/10/18 11:36 Review of Systems All Systems: reviewed and no additional remarkable complaints except as stated ( 10 systems reviewed) Exam - Vital Signs Vital signs: Initial Vital Signs Temp Pulse Resp BP Pulse Ox 97.4 F L 110 18 144/66 97 03/14/18 19:58 03/14/18 19:58 03/14/18 19:58 03/14/18 19:58 03/14/18 19:58 Vital Signs - Last 8 Hours Temp Pulse Resp BP Pulse Ox 03/15/18 17:22 98.0 F 115 19 129/72 100 03/15/18 16:15 98.4 F 19 160/70 03/15/18 16:00 139/76 03/15/18 15:45 149/60 03/15/18 15:30 156/76 03/15/18 15:15 152/65 03/15/18 15:00 130/69 03/15/18 14:45 134/74 03/15/18 14:30 154/67 03/15/18 14:15 164/72 03/15/18 14:00 144/67 03/15/18 13:45 141/68 03/15/18 13:30 147/70 03/15/18 13:15 143/69 03/15/18 13:00 98.8 F 19 150/64 03/15/18 11:33 99.0 F 98 19 154/75 95 Intake and Output 03/15/18 03/15/18 03/15/18 07:59 15:59 23:59 Intake Total 840 / 840 120 / 120 Output Total 4600 / 4600 Balance 840 / 840 -4480 / -4480 Intake: Oral 240 / 240 120 / 120 Intake, Rinseback and Flushes 600 / 600 Output: Urine 0 / 0 Total Dialysis (HD) Output 4600 / 4600 Other: Meal Lunch Dinner Percent of Meal Consumed 40% 100% Stool Size Copious Stool Consistency liquid Stool Color Brown # Urine Diapers 1 1 # Bowel Movement Diapers 1 Blood Glucose* 242 123 119 Hemodialysis Net Fluid Removed 4219 4000 (mL) - General Appearance General appearance: chronically ill, fatigue EENT: ATNC, mucous membranes moist Neck: no JVD, supple Respiratory: clear (ant bilat) Cardiology: edema, normal S1, normal S2 - Dialysis Access Dialysis Vascular Access: Arteriovenous Fistula thrill: Yes bruit: Yes Gastrointestinal: no tenderness, no guarding Integumentary: chronic venous stasis Neurologic: no focal deficit Musculoskeletal: no deformities Psychiatric: mood/affect appropriate, cooperative Results - Lab Results 03/17/18 05:47 03/17/18 05:47 Most recent lab results Calcium 8.7 mg/dL (8.6-10.3) 03/15/18 06:24 Phosphorus 4.5 mg/dL (2.7-4.5) 03/14/18 21:16 Magnesium 1.7 mg/dL (1.6-2.6) 03/14/18 21:16 Consult Discharge Plan - Plan Referrals: Tristen Quintana MD [Primary Care Provider] -
[2018-03-15] MEDS: Budesonide/Formoterol 160/4.5 MDI IH SCH (19:56)
[2018-03-15] MEDS ORDERED: COLESTIPOL HCL 1 GM PO SCH (21:00)
[2018-03-16] MEDS: *HR* Morphine Sulfate SR (12 HR) 15 MG TABLET.ER PO SCH ×2 (04:59→16:53)
[2018-03-16 05:28] LABS: Hematocrit 27.9 % (35.3-44.9); Hemoglobin 8.7 g/dL (11.5-15.4); Mean Corpuscular HGB Conc 31.2 g/dL (31.6-35.5); Mean Corpuscular Hemoglobin 26.2 pg (28.0-33.3); Mean Platelet Volume 10.9 fL (9.4-12.4); Platelet Count 215 K/mcL (140-400); Red Blood Count 3.32 M/mcL (3.82-4.97); Red Cell Distribution Width 16.2 % (11.5-14.5)
[2018-03-16 05:41] LABS: Calcium 8.3 mg/dL (8.6-10.3); Potassium 3.8 mEq/L (3.5-5.1)
[2018-03-16] MEDS ORDERED: 0.9 % Sodium Chloride 250 ML IVC PRN (07:51)
[2018-03-16] MEDS ORDERED: 0.9 % Sodium Chloride Mini Bag 100 ML ONE (08:00)
[2018-03-16] MEDS: Budesonide/Formoterol 160/4.5 MDI IH SCH ×2 (08:00→22:15)
[2018-03-16] MEDS ORDERED: 0.9 % Sodium Chloride 1,000 ML PRIME SCH (08:00)
[2018-03-16] MEDS: Renal Vitamin 1 MG CAPSULE PO SCH (08:03)
[2018-03-16] MEDS: amLODIPine 5 MG TABLET PO SCH (08:03)
[2018-03-16] MEDS: Aspirin Enteric Coated 81 MG Tablet PO SCH (08:03)
[2018-03-16] MEDS: ARIPiprazole 10 MG TABLET PO SCH (08:03)
[2018-03-16] MEDS: Insulin LISPRO 300 UNITS/3 ML VIAL SQ SCH ×4 (08:05→23:30)
[2018-03-16] MEDS ORDERED: 0.9 % Sodium Chloride 1,000 ML ONE (08:49)
--- NOTE | 2018-03-16 10:10 | Nephrology Progress Note ---
<Diann Norwood - Last Filed: 03/16/18 10:07> Date of Encounter: 03/16/18 Time of Encounter: 10:08 - Assessment and Plan (1) ESRD (end stage renal disease) on dialysis Current Visit: Yes Status: Chronic HD MWF. Avoid nephrotoxins and renal dose all medications. Renal diet. Renal binders. HD today. (2) DMII (diabetes mellitus, type 2) Current Visit: Yes Status: Chronic Per primary team. Qualifiers: Diabetes mellitus intermediate insulin use: with long term care social worker use Diabetes mellitus complication status: with kidney complications Diabetes mellitus complication detail: with chronic kidney disease Chronic kidney disease stage : on chronic dialysis Qualified Code(s): E11.22 - Type 2 diabetes mellitus with diabetic chronic kidney disease; N18.6 - End stage renal disease; Z79.4 - skilled nursing (current) use of insulin; Z99.2 - Dependence on renal dialysis Subjective Principal diagnosis: high BP Interval history: Pt seen and examined in HD, tolerating well. Objective - Vital Signs Vital signs: Vital Signs Temp Pulse Resp BP Pulse Ox 03/16/18 09:15 121/54 03/16/18 09:00 131/51 03/16/18 08:45 133/57 03/16/18 08:30 99.2 F 20 122/56 03/16/18 08:01 16 98 03/16/18 07:21 99.1 F 105 16 131/62 97 03/16/18 04:26 98.2 F 117 16 164/68 96 03/15/18 23:47 99 F 99 16 127/65 95 03/15/18 20:04 98.3 F 107 16 111/55 98 03/15/18 19:56 18 98 03/15/18 17:22 98.0 F 115 19 129/72 100 03/15/18 16:15 98.4 F 19 160/70 03/15/18 16:00 139/76 03/15/18 15:45 149/60 03/15/18 15:30 156/76 03/15/18 15:15 152/65 03/15/18 15:00 130/69 03/15/18 14:45 134/74 03/15/18 14:30 154/67 03/15/18 14:15 164/72 03/15/18 14:00 144/67 03/15/18 13:45 141/68 03/15/18 13:30 147/70 03/15/18 13:15 143/69 03/15/18 13:00 98.8 F 19 150/64 03/15/18 11:33 99.0 F 98 19 154/75 95 Intake and Output 03/15/18 03/16/18 03/16/18 23:59 07:59 15:59 Intake Total 120 / 120 1110 / 1110 Output Total 4600 / 4600 0 / 0 Balance -4480 / -4480 1110 / 1110 Intake: Oral 120 / 120 510 / 510 Intake, Rinseback and Flushes 600 / 600 Output: Urine 0 / 0 0 / 0 Total Dialysis (HD) Output 4600 / 4600 Other: Meal Dinner Breakfast Percent of Meal Consumed 100% 100% Stool Size Copious Stool Consistency liquid Stool Color Brown # Urine Diapers 1 # Bowel Movement Diapers 1 Weight 100.3 kg 100.3 kg Blood Glucose* 199 158 Hemodialysis Net Fluid Removed 4000 1730 (mL) Patient Weight 03/16/18 23:59 Weight 100.3 kg - General Appearance General appearance: Present: chronically ill, frail EENT: Present: ATNC, hearing intact, vision intact Neck: Present: supple Respiratory: Present: clear Cardiology: Present: edema (Trace BLE), normal S1, normal S2 Dialysis Vascular Access: Arteriovenous Fistula (Upper extremity) thrill: Yes bruit: Yes Gastrointestinal: Present: normoactive bowel sounds, no tenderness Integumentary: Present: no rash, warm and dry Neurologic: Present: alert and oriented x3 Psychiatric: Present: mood/affect appropriate, cooperative - Lab 03/16/18 05:00 03/16/18 05:00 Most recent lab results Calcium 8.3 mg/dL (8.6-10.3) L 03/16/18 05:00 Phosphorus 4.5 mg/dL (2.7-4.5) 03/14/18 21:16 Magnesium 1.7 mg/dL (1.6-2.6) 03/14/18 21:16 Consult Discharge Plan - Plan Referrals: Tristen Quintana MD [Primary Care Provider] - <Luma Mendez - Last Filed: 03/18/18 00:00> Date of Encounter: 03/16/18 - Assessment and Plan (1) ESRD (end stage renal disease) on dialysis Current Visit: Yes Status: Chronic (2) Anemia Current Visit: Yes Status: Acute Qualifiers: Anemia type: unspecified type Qualified Code(s): D64.9 - Anemia, unspecified (3) Hyperglycemia Current Visit: No Status: Acute (4) UTI (urinary tract infection) Current Visit: No Status: Acute Qualifiers: Urinary tract infection type: acute cystitis Qualified Code(s): N30.00 - Acute cystitis without hematuria (5) Hyponatremia Current Visit: No Status: Chronic Objective - Vital Signs Vital signs: Vital Signs Temp Pulse Resp BP Pulse Ox 03/17/18 23:32 98.7 F 87 16 130/67 97 03/17/18 19:49 18 94 03/17/18 19:40 97.5 F L 96 16 122/68 94 03/17/18 17:08 97.5 F L 90 18 123/74 99 03/17/18 11:36 98.3 F 95 20 152/68 100 03/17/18 07:39 16 97 03/17/18 07:26 98.3 F 92 20 126/72 95 03/17/18 04:12 98.1 F 84 15 131/54 100 Intake and Output 03/17/18 03/17/18 03/17/18 07:59 15:59 23:59 Intake Total 470 / 470 120 / 120 Output Total 0 / 0 250 / 250 Balance 470 / 470 -130 / -130 Intake: Oral 470 / 470 120 / 120 Output: Urine 0 / 0 Emesis 250 / 250 Wound Drainage 0 / 0 0 / 0 coccyx 0 / 0 0 / 0 Other: Meal Lunch Dinner Percent of Meal Consumed 40% 15% # Voids 1 1 Weight 94.4 kg Blood Glucose* 258 196 182 Patient Weight 03/17/18 23:59 Weight 94.4 kg - Lab 03/17/18 05:47 03/17/18 05:47 Most recent lab results Calcium 8.7 mg/dL (8.6-10.3) 03/17/18 05:47 Phosphorus 4.5 mg/dL (2.7-4.5) 03/14/18 21:16 Magnesium 1.7 mg/dL (1.6-2.6) 03/14/18 21:16 - Attending Attestation I examined this patient and my medical decision-making was reviewed with the Resident Physician/[employer]. I agree with the documented findings, disposition and treatment plan as described except to the extent set forth below. Pt seen and examined on HD feeling better today and still agreeable for ECF placement. Labs reviewed. Exam shows LE edema with chornic venous changes. Continue HD with UF at tolerated, shortened today after back to back treatments
--- NOTE | 2018-03-16 12:48 | Internal Med Progress Note ---
Date of Encounter: 03/16/18 Time of Encounter: 12:40 - Assessment and plan (1) DMII (diabetes mellitus, type 2) Current Visit: Yes Status: Chronic Assessment and plan: Uncontrolled. Blood sugars are elevated secondary to non compliance. Resume insulin. Patient will need termite treater helper care as she is unable to care for herself at home/ administer meds. multimedia services coordinator consulted. Adult protective services was called by her PCP. Will follow Qualifiers: Diabetes mellitus custodial insulin use: with termite treater helper use Diabetes mellitus complication status: with kidney complications Diabetes mellitus complication detail: with chronic kidney disease Chronic kidney disease stage : on chronic dialysis Qualified Code(s): E11.22 - Type 2 diabetes mellitus with diabetic chronic kidney disease; N18.6 - End stage renal disease; Z79.4 - terminal operations manager (current) use of insulin; Z99.2 - Dependence on renal dialysis (2) COPD (chronic obstructive pulmonary disease) Current Visit: Yes Status: Chronic Assessment and plan: Currently not in acute exacerbation. Will place her on bronchodilators as needed Qualifiers: COPD type: unspecified COPD Qualified Code(s): J44.9 - Chronic obstructive pulmonary disease, unspecified (3) UTI (urinary tract infection) Current Visit: Yes Status: Acute Assessment and plan: Patient with history of multidrug resistant bacterial infection in urine. Likely colonization. Patient is asymptomatic. No indication to treat Qualifiers: Urinary tract infection type: acute cystitis Hematuria presence: with hematuria Qualified Code(s): N30.01 - Acute cystitis with hematuria (4) Atrial fibrillation Current Visit: Yes Status: Chronic Assessment and plan: Continue coreg. Patient not on anticoagulation due to anemia and prior history of vaginal bleed. Qualifiers: Atrial fibrillation type: chronic Qualified Code(s): I48.2 - Chronic atrial fibrillation (5) Anemia Current Visit: Yes Status: Chronic Assessment and plan: Hemoglobin 8.2. At baseline. Patient will receive Epogen as needed per nephrology recommendations Qualifiers: Anemia type: due to chronic kidney disease Chronic kidney disease stage: on chronic dialysis Qualified Code(s): N18.6 - End stage renal disease; D63.1 - Anemia in chronic kidney disease; Z99.2 - Dependence on renal dialysis (6) ESRD (end stage renal disease) on dialysis Current Visit: Yes Status: Chronic Assessment and plan: Consult nephrology for dialysis recommendations. (7) Chronic respiratory failure with hypoxia Current Visit: Yes Status: Chronic Assessment and plan: continue O2 supplementation to keep sats greater than 90% (8) Congestive heart failure Current Visit: Yes Status: Chronic Assessment and plan: Not in acute exacerbation. Continue home medications. Qualifiers: Heart failure type: diastolic Heart failure chronicity: chronic Qualified Code(s): I50.32 - Chronic diastolic (congestive) heart failure (9) Pressure ulcer of sacral region, stage 3 Current Visit: Yes Status: Acute Assessment and plan: Wound VAC in place with. We will consult wound care for evaluation and follow- up recommendations. Frequent repositioning. Minimize pressure. (10) Elevated troponin Current Visit: Yes Status: Acute Assessment and plan: Troponins are elevated above baseline. Patient denies any chest pain at this time. Will trend troponins. Consider cardiology consult if continues to trend up. (11) Cellulitis Current Visit: No Status: Acute Assessment and plan: Has bilateral lower extremity warmth. Continue cefazolin Qualifiers: Site of cellulitis: extremity Site of cellulitis of extremity: lower extremity Laterality: right Qualified Code(s): L03.115 - Cellulitis of right lower limb - Time Spent With Patient Total time spent is greater than 50% in coordination of care (as documented) at patient's floor/unit and/or counseling patient: - Subjective Interval history: No acute events overnight - Constitutional Vitals: Temp Pulse Resp BP Pulse Ox 98.4 F 94 16 126/68 98 03/16/18 11:17 03/16/18 11:17 03/16/18 11:17 03/16/18 11:17 03/16/18 11:17 General appearance: Present: obese - Head Head exam: Present: atraumatic, normocephalic - Eye Eye exam: Present: PERRL, conjuntiva pink, sclera anicteric Pupils: Present: PERRL - Neck Neck exam general surgery: Present: supple, trachea midline. Absent: lymphadenopathy - Respiratory Respiratory exam: Present: CTAB. Absent: accessory muscle use, rales, rhonchi, wheezes - Cardiovascular Cardiovascular exam: Present: RRR, +S1, +S2. Absent: diastolic murmur, gallop, rubs, systolic murmur - GI/Abdominal GI/Abdominal exam: Present: normal bowel sounds, soft, no peritoneal signs. Absent: distended, tenderness - Extremities Exam Extremities exam: Present: warm, radial pulses palpable and symmetrical. Absent : calf tenderness, cyanotic, pedal edema Additional comments: lower extremity warmth - Neurological Exam Neurological exam: Present: CN II-XII intact, oriented X3, no focal deficits. Absent: pronater drift, facial droop, speech deficit - Skin Skin exam: Present: dry, intact Internal Medicine: Result - Labs CBC & Chem 7: 03/16/18 05:00 03/16/18 05:00 Labs: Short CBC 03/16/18 Range/Units 05:00 WBC 11.3 H (4.3-11.1) K/mcL Hgb 8.7 L (11.5-15.4) g/dL Hct 27.9 L (35.3-44.9) % Plt Count 215 (140-400) K/mcL BMP 03/16/18 05:00 Sodium 135 L Potassium 3.8 Chloride 99 Carbon Dioxide 28 BUN 24 H Creatinine 2.20 H Glucose 152 H Calcium 8.3 L Cardiac Enzymes 03/15/18 Range/Units 12:38 Troponin I 0.32 H* (< 0.04) ng/mL Consult Discharge Plan - Plan Referrals: Tristen Quintana MD [Primary Care Provider] -
[2018-03-16] MEDS: ceFAZolin 1,000 MG in 0.9 % Sodium Chloride Mini Bag 100 ML IVPB SCH (16:53)
[2018-03-16] MEDS: Insulin DETEMIR 100 UNIT/ML X5UNITS SQ SCH (23:31)
[2018-03-17] MEDS: *HR* Morphine Sulfate SR (12 HR) 15 MG TABLET.ER PO SCH ×2 (06:02→17:08)
[2018-03-17 06:38] LABS: Hematocrit 30.2 % (35.3-44.9); Hemoglobin 9.1 g/dL (11.5-15.4); Mean Corpuscular HGB Conc 30.1 g/dL (31.6-35.5); Mean Corpuscular Hemoglobin 26.4 pg (28.0-33.3); Mean Corpuscular Volume 87.5 fL (83.0-100.0); Mean Platelet Volume 11.1 fL (9.4-12.4); Platelet Count 185 K/mcL (140-400); Red Blood Count 3.45 M/mcL (3.82-4.97); Red Cell Distribution Width 16.1 % (11.5-14.5)
[2018-03-17 07:02] LABS: Calcium 8.7 mg/dL (8.6-10.3); Potassium 4.1 mEq/L (3.5-5.1)
[2018-03-17] MEDS: Budesonide/Formoterol 160/4.5 MDI IH SCH ×2 (07:39→19:49)
[2018-03-17] MEDS ORDERED: 0.9 % Sodium Chloride Mini Bag 100 ML ONE (07:46)
[2018-03-17] MEDS: Renal Vitamin 1 MG CAPSULE PO SCH (07:54)
[2018-03-17] MEDS: amLODIPine 5 MG TABLET PO SCH (07:54)
[2018-03-17] MEDS: Cholecalciferol (D-3) 1,000 UNIT TABLET PO SCH (07:55)
[2018-03-17] MEDS: ARIPiprazole 10 MG TABLET PO SCH (07:55)
[2018-03-17] MEDS: Aspirin Enteric Coated 81 MG Tablet PO SCH (07:55)
[2018-03-17] MEDS: Insulin LISPRO 300 UNITS/3 ML VIAL SQ SCH ×4 (07:55→20:56)
--- NOTE | 2018-03-17 10:24 | Event Note ---
Date of Encounter: 03/17/18 Time of Encounter: 10:16 - Cardiology Event Note Please see consult note from 03/16/18 for complete recommendations. Pt still feels fatigued, but no other notable symptoms today. Has had HD x2 throughout present admission. Labs, VS, & I/Os reviewed. CONSTITUTIONAL: Alert and oriented X3, well-nourished, well appearing, in no apparent distress HEAD: Normocephalic; atraumatic. EYES: PER (3-4mm), no scleral icterus, no drainage, no conjunctival injection NOSE: The nose is normal in appearance without rhinorrhea; NC in place Oropharynx: pink/moist, no tonsillar edema/erythema/exudates RESP: NRD without use of accessory musculature, diffuse expiratory wheeze & rhonchi heard CARD: RRR, II/ systolic murmur heard over RUSB and LLSB ABD: grossly normal, soft, non-tender SKIN: normal appearance, no pallor/diaphoresis,mottling,jaundice,cyanosis EXT: DP/Rad pulses 2+ and symmetrical; symmetrical pedal edema 1-2+ pitting b/l ; no other rash or lesions seen PSYCH: appropriate mood/affect Plans as per consult note. Pending results of ECHO which is ordered, but not completed as of yet. -- If unchanged or stable from prior (11/12/17), no further cardiac testing warranted during present hospitalization.
--- NOTE | 2018-03-17 10:36 | Nephrology Progress Note ---
<Cammie Hare - Last Filed: 03/17/18 10:39> Date of Encounter: 03/17/18 Time of Encounter: 10:34 - Assessment and Plan (1) ESRD (end stage renal disease) on dialysis Current Visit: Yes Status: Chronic Plan for HD tomorrow Continue renal diet Avoid nephrotoxins if possible Planning to go to an ECF in [place]-may need outpatient HD changed from [facility] to [facility] (2) DM2 (diabetes mellitus, type 2) Current Visit: No Status: Chronic per primary team Qualifiers: Diabetes mellitus custodial insulin use: with custodial use Diabetes mellitus complication status: with kidney complications Diabetes mellitus complication detail: with chronic kidney disease Chronic kidney disease stage : on chronic dialysis Qualified Code(s): E11.22 - Type 2 diabetes mellitus with diabetic chronic kidney disease; N18.6 - End stage renal disease; Z99.2 - Dependence on renal dialysis; Z99.2 - Dependence on renal dialysis; Z99.2 - Dependence on renal dialysis; N18.6 - End stage renal disease; N18.6 - End stage renal disease; N18.6 - End stage renal disease; Z79.4 - terminal superintendent (current ) use of insulin; Z79.4 - terminal superintendent (current) use of insulin; Z79.4 - terminal superintendent (current) use of insulin; Z79.4 - terminal superintendent (current) use of insulin; Z99.2 - Dependence on renal dialysis Subjective Principal diagnosis: high BP Interval history: Patient seen and examined. No complaints today Objective - Vital Signs Vital signs: Vital Signs Temp Pulse Resp BP Pulse Ox 03/17/18 07:39 16 97 03/17/18 07:26 98.3 F 92 20 126/72 95 03/17/18 04:12 98.1 F 84 15 131/54 100 03/16/18 22:18 98.2 F 94 15 152/69 100 03/16/18 22:15 18 99 03/16/18 16:38 98.4 F 94 16 134/74 99 03/16/18 11:17 98.4 F 94 16 126/68 98 03/16/18 10:50 97.4 F L 20 127/74 Intake and Output 03/16/18 03/17/18 03/17/18 23:59 07:59 15:59 Intake Total 230 / 230 Output Total 0 / 0 Balance 230 / 230 Intake: Oral 230 / 230 Output: Urine 0 / 0 Other: Meal Breakfast Percent of Meal Consumed 45% # Voids 1 1 Weight 94.4 kg Blood Glucose* 243 258 Patient Weight 03/17/18 23:59 Weight 94.4 kg - General Appearance General appearance: Present: chronically ill EENT: Present: ATNC, mucous membranes moist, hearing intact, vision intact Neck: Present: supple Respiratory: Present: clear Cardiology: Present: edema, normal S1, normal S2 Dialysis Vascular Access: Arteriovenous Fistula Gastrointestinal: Present: no tenderness, no guarding Integumentary: Present: warm and dry Neurologic: Present: alert and oriented x3 Psychiatric: Present: mood/affect appropriate, cooperative - Lab 03/17/18 05:47 03/17/18 05:47 Most recent lab results Calcium 8.7 mg/dL (8.6-10.3) 03/17/18 05:47 Phosphorus 4.5 mg/dL (2.7-4.5) 03/14/18 21:16 Magnesium 1.7 mg/dL (1.6-2.6) 03/14/18 21:16 Consult Discharge Plan - Plan Referrals: Tristen Quintana MD [Primary Care Provider] - <Luma Mendez - Last Filed: 03/17/18 23:57> Date of Encounter: 03/17/18 - Assessment and Plan (1) ESRD (end stage renal disease) on dialysis Current Visit: Yes Status: Chronic (2) Anemia Current Visit: Yes Status: Acute Qualifiers: Anemia type: unspecified type Qualified Code(s): D64.9 - Anemia, unspecified (3) Hyperglycemia Current Visit: No Status: Acute (4) UTI (urinary tract infection) Current Visit: No Status: Acute Qualifiers: Urinary tract infection type: acute cystitis Qualified Code(s): N30.00 - Acute cystitis without hematuria (5) Hyponatremia Current Visit: No Status: Chronic Objective - Vital Signs Vital signs: Vital Signs Temp Pulse Resp BP Pulse Ox 03/17/18 23:32 98.7 F 87 16 130/67 97 03/17/18 19:49 18 94 03/17/18 19:40 97.5 F L 96 16 122/68 94 03/17/18 17:08 97.5 F L 90 18 123/74 99 03/17/18 11:36 98.3 F 95 20 152/68 100 03/17/18 07:39 16 97 03/17/18 07:26 98.3 F 92 20 126/72 95 03/17/18 04:12 98.1 F 84 15 131/54 100 Intake and Output 03/17/18 03/17/18 03/17/18 07:59 15:59 23:59 Intake Total 470 / 470 120 / 120 Output Total 0 / 0 250 / 250 Balance 470 / 470 -130 / -130 Intake: Oral 470 / 470 120 / 120 Output: Urine 0 / 0 Emesis 250 / 250 Wound Drainage 0 / 0 0 / 0 coccyx 0 / 0 0 / 0 Other: Meal Lunch Dinner Percent of Meal Consumed 40% 15% # Voids 1 1 Weight 94.4 kg Blood Glucose* 258 196 182 Patient Weight 03/17/18 23:59 Weight 94.4 kg - Lab 03/17/18 05:47 03/17/18 05:47 Most recent lab results Calcium 8.7 mg/dL (8.6-10.3) 03/17/18 05:47 Phosphorus 4.5 mg/dL (2.7-4.5) 03/14/18 21:16 Magnesium 1.7 mg/dL (1.6-2.6) 03/14/18 21:16 - Attending Attestation I examined this patient and my medical decision-making was reviewed with the Resident Physician/WILDLIFE BIOLOGIST. I agree with the documented findings, disposition and treatment plan as described except to the extent set forth below. Pt seen and examined with no new complaints. Labs reviewed and stable. Exam shows LE edema bilat with chronic venous changes. Next HD planned tomorrow. Awaiting ECF placement before discharge.
--- NOTE | 2018-03-17 11:21 | Internal Med Progress Note ---
Date of Encounter: 03/17/18 Time of Encounter: 11:00 - Assessment and plan (1) DMII (diabetes mellitus, type 2) Current Visit: Yes Status: Chronic Assessment and plan: Uncontrolled. Blood sugars are elevated secondary to non compliance. Resume insulin. Patient will need superintendent terminal care as she is unable to care for herself at home/ administer meds. clinical services specialist consulted. Adult protective services was called by her PCP. Will follow. Levemir increased to 20units at bedtime. Plan to discharge to ECF once sugars are controlled Qualifiers: Diabetes mellitus mcfp insulin use: with mcfp use Diabetes mellitus complication status: with kidney complications Diabetes mellitus complication detail: with chronic kidney disease Chronic kidney disease stage : on chronic dialysis Qualified Code(s): E11.22 - Type 2 diabetes mellitus with diabetic chronic kidney disease; N18.6 - End stage renal disease; Z79.4 - intermediate teacher (current) use of insulin; Z99.2 - Dependence on renal dialysis (2) Cellulitis Current Visit: No Status: Acute Assessment and plan: Has bilateral lower extremity warmth. Continue cefazolin Qualifiers: Site of cellulitis: extremity Site of cellulitis of extremity: lower extremity Laterality: right Qualified Code(s): L03.115 - Cellulitis of right lower limb (3) COPD (chronic obstructive pulmonary disease) Current Visit: Yes Status: Chronic Assessment and plan: Currently not in acute exacerbation. Will place her on bronchodilators as needed Qualifiers: COPD type: unspecified COPD Qualified Code(s): J44.9 - Chronic obstructive pulmonary disease, unspecified (4) UTI (urinary tract infection) Current Visit: Yes Status: Acute Assessment and plan: Patient with history of multidrug resistant bacterial infection in urine. Likely colonization. Patient is asymptomatic. No indication to treat Qualifiers: Urinary tract infection type: acute cystitis Hematuria presence: with hematuria Qualified Code(s): N30.01 - Acute cystitis with hematuria (5) Atrial fibrillation Current Visit: Yes Status: Chronic Assessment and plan: Continue coreg. Patient not on anticoagulation due to anemia and prior history of vaginal bleed. Qualifiers: Atrial fibrillation type: chronic Qualified Code(s): I48.2 - Chronic atrial fibrillation (6) Anemia Current Visit: Yes Status: Chronic Assessment and plan: Hemoglobin 8.2. At baseline. Patient will receive Epogen as needed per nephrology recommendations Qualifiers: Anemia type: due to chronic kidney disease Chronic kidney disease stage: on chronic dialysis Qualified Code(s): N18.6 - End stage renal disease; D63.1 - Anemia in chronic kidney disease; Z99.2 - Dependence on renal dialysis (7) ESRD (end stage renal disease) on dialysis Current Visit: Yes Status: Chronic Assessment and plan: Consult nephrology for dialysis recommendations. (8) Chronic respiratory failure with hypoxia Current Visit: Yes Status: Chronic Assessment and plan: continue O2 supplementation to keep sats greater than 90% (9) Congestive heart failure Current Visit: Yes Status: Chronic Assessment and plan: Not in acute exacerbation. Continue home medications. Qualifiers: Heart failure type: diastolic Heart failure chronicity: chronic Qualified Code(s): I50.32 - Chronic diastolic (congestive) heart failure (10) Pressure ulcer of sacral region, stage 3 Current Visit: Yes Status: Acute Assessment and plan: Wound VAC in place with. We will consult wound care for evaluation and follow- up recommendations. Frequent repositioning. Minimize pressure. (11) Elevated troponin Current Visit: Yes Status: Acute Assessment and plan: Troponins are elevated above baseline. Patient denies any chest pain at this time. Will trend troponins. Consider cardiology consult if continues to trend up. - Time Spent With Patient Total time spent is greater than 50% in coordination of care (as documented) at patient's floor/unit and/or counseling patient: - Subjective Interval history: No acute events overnight - Constitutional Vitals: Temp Pulse Resp BP Pulse Ox 98.3 F 92 16 126/72 97 03/17/18 07:26 03/17/18 07:26 03/17/18 07:39 03/17/18 07:26 03/17/18 07:39 General appearance: Present: obese - Head Head exam: Present: atraumatic, normocephalic - Eye Eye exam: Present: PERRL, conjuntiva pink, sclera anicteric Pupils: Present: PERRL - Neck Neck exam general surgery: Present: supple, trachea midline. Absent: lymphadenopathy - Respiratory Respiratory exam: Present: CTAB. Absent: accessory muscle use, rales, rhonchi, wheezes - Cardiovascular Cardiovascular exam: Present: RRR, +S1, +S2. Absent: diastolic murmur, gallop, rubs, systolic murmur - GI/Abdominal GI/Abdominal exam: Present: normal bowel sounds, soft, no peritoneal signs. Absent: distended, tenderness - Extremities Exam Extremities exam: Present: warm, radial pulses palpable and symmetrical. Absent : calf tenderness, cyanotic, pedal edema - Neurological Exam Neurological exam: Present: CN II-XII intact, oriented X3, no focal deficits. Absent: pronater drift, facial droop, speech deficit - Skin Skin exam: Present: dry, intact Internal Medicine: Result - Labs CBC & Chem 7: 03/17/18 05:47 03/17/18 05:47 Labs: Short CBC 03/17/18 Range/Units 05:47 WBC 8.6 (4.3-11.1) K/mcL Hgb 9.1 L (11.5-15.4) g/dL Hct 30.2 L (35.3-44.9) % Plt Count 185 (140-400) K/mcL [facility] 03/17/18 05:47 Sodium 132 L Potassium 4.1 Chloride 94 L Carbon Dioxide 28 BUN 23 Creatinine 2.32 H Glucose 280 H Calcium 8.7 Consult Discharge Plan - Plan Referrals: Tristen Quintana MD [Primary Care Provider] -
[2018-03-17] MEDS: ceFAZolin 1,000 MG in 0.9 % Sodium Chloride Mini Bag 100 ML IVPB SCH (17:08)
[2018-03-17] MEDS: Ondansetron 4 MG/2 ML VIAL IVP PRN (17:49)
[2018-03-17] MEDS: Insulin DETEMIR 100 UNIT/ML X5UNITS SQ SCH (20:58)
[2018-03-18] MEDS: Ondansetron 4 MG/2 ML VIAL IVP PRN ×2 (01:10→15:12)
[2018-03-18 04:21] LABS: Hematocrit 28.8 % (35.3-44.9); Hemoglobin 8.7 g/dL (11.5-15.4); Mean Corpuscular HGB Conc 30.2 g/dL (31.6-35.5); Mean Corpuscular Hemoglobin 26.2 pg (28.0-33.3); Mean Corpuscular Volume 86.7 fL (83.0-100.0); Mean Platelet Volume 10.8 fL (9.4-12.4); Platelet Count 180 K/mcL (140-400); Red Blood Count 3.32 M/mcL (3.82-4.97); Red Cell Distribution Width 15.8 % (11.5-14.5)
[2018-03-18 04:32] LABS: Calcium 8.7 mg/dL (8.6-10.3); Potassium 4.3 mEq/L (3.5-5.1)
[2018-03-18] MEDS: *HR* Morphine Sulfate SR (12 HR) 15 MG TABLET.ER PO SCH ×2 (05:36→20:30)
[2018-03-18] MEDS ORDERED: 0.9 % Sodium Chloride 250 ML IVC PRN (07:38)
[2018-03-18] MEDS: Insulin LISPRO 300 UNITS/3 ML VIAL SQ SCH ×4 (07:39→22:03)
[2018-03-18] MEDS: ARIPiprazole 10 MG TABLET PO SCH (07:41)
[2018-03-18] MEDS: Cholecalciferol (D-3) 1,000 UNIT TABLET PO SCH (07:42)
[2018-03-18] MEDS: Renal Vitamin 1 MG CAPSULE PO SCH (07:42)
[2018-03-18] MEDS: amLODIPine 5 MG TABLET PO SCH (07:42)
[2018-03-18] MEDS: Aspirin Enteric Coated 81 MG Tablet PO SCH (07:42)
[2018-03-18] MEDS: Budesonide/Formoterol 160/4.5 MDI IH SCH ×2 (07:43→20:27)
[2018-03-18] MEDS ORDERED: 0.9 % Sodium Chloride 1,000 ML PRIME SCH (07:45)
[2018-03-18] MEDS ORDERED: 0.9 % Sodium Chloride 1,000 ML ONE (07:52)
--- NOTE | 2018-03-18 11:01 | Nephrology Progress Note ---
Date of Encounter: 03/18/18 Time of Encounter: 09:30 - Assessment and Plan (1) ESRD (end stage renal disease) on dialysis Current Visit: Yes Status: Chronic (2) Problem with dialysis access Current Visit: No Status: Acute Did not work today thus HD was not able to be performed. Most likely will need a Fistulagram since she still has a bruit (though weak). If there was not bruit then she may need a thrombectomy. Discussed with the bus or truck garage mechanic and the hospitalist. Qualifiers: Encounter type: subsequent encounter Qualified Code(s): T82.898D - Other specified complication of vascular prosthetic devices, implants and grafts, subsequent encounter Subjective Principal diagnosis: high BP Interval history: Pt was seen /examined before dialysis. She reported feeling well and looked forward to dialysis Objective - Vital Signs Vital signs: Vital Signs Temp Pulse Resp BP Pulse Ox 03/18/18 07:44 17 99 03/18/18 07:14 98.2 F 85 18 99/46 98 03/18/18 03:51 97.9 F 85 16 148/70 99 03/17/18 23:32 98.7 F 87 16 130/67 97 03/17/18 19:49 18 94 03/17/18 19:40 97.5 F L 96 16 122/68 94 03/17/18 17:08 97.5 F L 90 18 123/74 99 03/17/18 11:36 98.3 F 95 20 152/68 100 Intake and Output 03/17/18 03/18/18 03/18/18 23:59 07:59 15:59 Intake Total 120 / 120 0 / 0 Output Total 250 / 250 300 / 300 Balance -130 / -130 -300 / -300 Intake: Oral 120 / 120 0 / 0 Output: Emesis 250 / 250 300 / 300 Wound Drainage 0 / 0 coccyx 0 / 0 Other: Meal Dinner Percent of Meal Consumed 15% # Voids 1 Weight 99.9 kg Blood Glucose* 182 128 Patient Weight 03/18/18 23:59 Weight 99.9 kg - General Appearance General appearance: Present: well-developed, obese, chronically ill, frail EENT: Present: ATNC, PERRL, mucous membranes moist Neck: Present: supple Respiratory: Present: clear Cardiology: Present: edema, regular rate, regular rhythm, normal S1, normal S2 Dialysis Vascular Access: Arteriovenous Graft (LUE AVG) thrill: Yes (weak) bruit: Yes (weak) Gastrointestinal: Present: normoactive bowel sounds, no tenderness (w) Integumentary: Present: ecchymotic, chronic venous stasis Neurologic: Present: no focal deficit, no asterixis Musculoskeletal: Present: no deformities, no clubbing Psychiatric: Present: mood/affect appropriate, cooperative - Lab 03/18/18 04:00 03/18/18 04:00 Most recent lab results Calcium 8.7 mg/dL (8.6-10.3) 03/18/18 04:00 Phosphorus 4.5 mg/dL (2.7-4.5) 03/14/18 21:16 Magnesium 1.7 mg/dL (1.6-2.6) 03/14/18 21:16 Consult Discharge Plan - Plan Referrals: Tristen Quintana MD [Primary Care Provider] -
--- NOTE | 2018-03-18 11:37 | Internal Med Progress Note ---
Date of Encounter: 03/18/18 Time of Encounter: 11:30 - Assessment and plan (1) ESRD (end stage renal disease) on dialysis Current Visit: Yes Status: Chronic Assessment and plan: Nephrology following. Pt's fistula was obstructed this am. will get fistulogram by IR and have temporary dialysis access placed (2) DMII (diabetes mellitus, type 2) Current Visit: Yes Status: Chronic Assessment and plan: Uncontrolled. Blood sugars are elevated secondary to non compliance. Resume insulin. Patient will need shelter care as she is unable to care for herself at home/ administer meds. real estate services administrator consulted. Adult protective services was called by her PCP. Will follow. Levemir increased to 20units at bedtime. Plan to discharge to ECF once sugars are controlled Qualifiers: Diabetes mellitus shelter insulin use: with ad terminal makeup operator use Diabetes mellitus complication status: with kidney complications Diabetes mellitus complication detail: with chronic kidney disease Chronic kidney disease stage : on chronic dialysis Qualified Code(s): E11.22 - Type 2 diabetes mellitus with diabetic chronic kidney disease; N18.6 - End stage renal disease; Z79.4 - long term care phlebotomist (current) use of insulin; Z99.2 - Dependence on renal dialysis (3) Elevated troponin Current Visit: Yes Status: Acute Assessment and plan: Troponins are elevated above baseline. Patient denies any chest pain at this time. Will trend troponins. Had repeat TTE done showing no acute changes from last echo. Per cardiology, no further intervention indicated (4) Cellulitis Current Visit: No Status: Acute Assessment and plan: Has bilateral lower extremity warmth. Continue cefazolin Qualifiers: Site of cellulitis: extremity Site of cellulitis of extremity: lower extremity Laterality: right Qualified Code(s): L03.115 - Cellulitis of right lower limb (5) COPD (chronic obstructive pulmonary disease) Current Visit: Yes Status: Chronic Assessment and plan: Currently not in acute exacerbation. Will place her on bronchodilators as needed Qualifiers: COPD type: unspecified COPD Qualified Code(s): J44.9 - Chronic obstructive pulmonary disease, unspecified (6) UTI (urinary tract infection) Current Visit: Yes Status: Acute Assessment and plan: Patient with history of multidrug resistant bacterial infection in urine. Likely colonization. Patient is asymptomatic. No indication to treat Qualifiers: Urinary tract infection type: acute cystitis Hematuria presence: with hematuria Qualified Code(s): N30.01 - Acute cystitis with hematuria (7) Atrial fibrillation Current Visit: Yes Status: Chronic Assessment and plan: Continue coreg. Patient not on anticoagulation due to anemia and prior history of vaginal bleed. Qualifiers: Atrial fibrillation type: chronic Qualified Code(s): I48.2 - Chronic atrial fibrillation (8) Anemia Current Visit: Yes Status: Chronic Assessment and plan: Hemoglobin 8.2. At baseline. Patient will receive Epogen as needed per nephrology recommendations Qualifiers: Anemia type: due to chronic kidney disease Chronic kidney disease stage: on chronic dialysis Qualified Code(s): N18.6 - End stage renal disease; D63.1 - Anemia in chronic kidney disease; Z99.2 - Dependence on renal dialysis (9) Chronic respiratory failure with hypoxia Current Visit: Yes Status: Chronic Assessment and plan: continue O2 supplementation to keep sats greater than 90% (10) Congestive heart failure Current Visit: Yes Status: Chronic Assessment and plan: Not in acute exacerbation. Continue home medications. Qualifiers: Heart failure type: diastolic Heart failure chronicity: chronic Qualified Code(s): I50.32 - Chronic diastolic (congestive) heart failure (11) Pressure ulcer of sacral region, stage 3 Current Visit: Yes Status: Acute Assessment and plan: Wound VAC in place with. We will consult wound care for evaluation and follow- up recommendations. Frequent repositioning. Minimize pressure. - Time Spent With Patient Total time spent is greater than 50% in coordination of care (as documented) at patient's floor/unit and/or counseling patient: - Subjective Interval history: No acute events overnight - Constitutional Vitals: Temp Pulse Resp BP Pulse Ox 98.2 F 85 17 99/46 99 03/18/18 07:14 03/18/18 07:14 03/18/18 07:44 03/18/18 07:14 03/18/18 07:44 General appearance: Present: obese - Head Head exam: Present: atraumatic, normocephalic - Eye Eye exam: Present: PERRL, conjuntiva pink, sclera anicteric Pupils: Present: PERRL - Neck Neck exam general surgery: Present: supple, trachea midline. Absent: lymphadenopathy - Respiratory Respiratory exam: Present: CTAB. Absent: accessory muscle use, rales, rhonchi, wheezes - Cardiovascular Cardiovascular exam: Present: RRR, +S1, +S2. Absent: diastolic murmur, gallop, rubs, systolic murmur - GI/Abdominal GI/Abdominal exam: Present: normal bowel sounds, soft, no peritoneal signs. Absent: distended, tenderness - Extremities Exam Extremities exam: Present: warm, radial pulses palpable and symmetrical. Absent : calf tenderness, cyanotic, pedal edema - Neurological Exam Neurological exam: Present: CN II-XII intact, oriented X3, no focal deficits. Absent: pronater drift, facial droop, speech deficit - Skin Skin exam: Present: dry, intact Internal Medicine: Result - Labs CBC & Chem 7: 03/18/18 04:00 03/18/18 04:00 Labs: Short CBC 03/18/18 Range/Units 04:00 WBC 9.7 (4.3-11.1) K/mcL Hgb 8.7 L (11.5-15.4) g/dL Hct 28.8 L (35.3-44.9) % Plt Count 180 (140-400) K/mcL [facility] 03/18/18 04:00 Sodium 131 L Potassium 4.3 Chloride 94 L Carbon Dioxide 29 BUN 30 H Creatinine 3.19 H Glucose 150 H Calcium 8.7 Consult Discharge Plan - Plan Referrals: Tristen Quintana MD [Primary Care Provider] -
--- NOTE | 2018-03-18 12:07 | Event Note ---
<Romain Johnson - Last Filed: 03/18/18 12:05> Date of Encounter: 03/18/18 Time of Encounter: 10:45 - Cardiology Event Note Limited TTE without significant differences from comparison study on 11/11/17; cardiology will sign off with no further recommendations at this point. <Brad Murcia - Last Filed: 03/18/18 16:29> Date of Encounter: 03/18/18 - Cardiology Event Note I examined this patient and my medical decision-making was reviewed with the Resident Physician. I agree with the documented findings, disposition and treatment plan as described except to the extent set forth below. No acute changes on echo, will sign off, please recontact if can be of assistance.
[2018-03-18] MEDS ORDERED: *HR* Heparin 5,000 UNIT/ML VIAL ONE (13:24)
--- NOTE | 2018-03-18 14:58 | IR Procedure Note ---
Date of procedure: 03/18/18 Consent Obtained: Written consent Timeout: Correct patient and procedure verified, Correct site verified, Time out performed, Skin prep completed Indications: renal failure Procedure Performed: temp HDC Was there an assistant foreman present: No Site/Technique: rt IJ access Results/Findings: adequate placement Estimated blood loss (cc): 0 Complications: None; Tolerated procedure well Post Procedure Treatment Plan: CXR Specimen: none
[2018-03-18] MEDS: ceFAZolin 1,000 MG in 0.9 % Sodium Chloride Mini Bag 100 ML IVPB SCH (20:31)
[2018-03-18] MEDS: Insulin DETEMIR 100 UNIT/ML X5UNITS SQ SCH (22:03)
[2018-03-19 04:02] LABS: Hematocrit 32.4 % (35.3-44.9); Hemoglobin 9.5 g/dL (11.5-15.4); Mean Corpuscular HGB Conc 29.3 g/dL (31.6-35.5); Mean Corpuscular Volume 88.5 fL (83.0-100.0); Mean Platelet Volume 10.9 fL (9.4-12.4); Platelet Count 205 K/mcL (140-400); Red Blood Count 3.66 M/mcL (3.82-4.97); Red Cell Distribution Width 15.6 % (11.5-14.5)
[2018-03-19 04:21] LABS: Calcium 8.7 mg/dL (8.6-10.3); Potassium 4.5 mEq/L (3.5-5.1)
[2018-03-19] MEDS: *HR* Morphine Sulfate SR (12 HR) 15 MG TABLET.ER PO SCH ×2 (06:30→16:57)
[2018-03-19] MEDS ORDERED: 0.9 % Sodium Chloride Mini Bag 100 ML ONE (08:31)
[2018-03-19] MEDS: amLODIPine 5 MG TABLET PO SCH (08:54)
[2018-03-19] MEDS: Renal Vitamin 1 MG CAPSULE PO SCH (08:54)
[2018-03-19] MEDS: ARIPiprazole 10 MG TABLET PO SCH (08:54)
[2018-03-19] MEDS: Insulin LISPRO 300 UNITS/3 ML VIAL SQ SCH ×4 (08:55→22:21)
[2018-03-19] MEDS: Cholecalciferol (D-3) 1,000 UNIT TABLET PO SCH (08:55)
[2018-03-19] MEDS: Budesonide/Formoterol 160/4.5 MDI IH SCH ×2 (08:59→20:32)
[2018-03-19] MEDS: Ondansetron 4 MG/2 ML VIAL IVP PRN (09:06)
--- NOTE | 2018-03-19 11:23 | Internal Med Progress Note ---
Date of Encounter: 03/19/18 Time of Encounter: 11:20 - Assessment and plan (1) ESRD (end stage renal disease) on dialysis Current Visit: Yes Status: Chronic Assessment and plan: Nephrology following. Pt's fistula was obstructed this am. will get fistulogram by IR and have temporary dialysis access placed. Got dialysis on wednesday (2) DMII (diabetes mellitus, type 2) Current Visit: Yes Status: Chronic Assessment and plan: Uncontrolled. Blood sugars are elevated secondary to non compliance. Resume insulin. Patient will need [facility] care as she is unable to care for herself at home/ administer meds. volunteer services supervisor consulted. Adult protective services was called by her PCP. Will follow. Levemir increased to 20units at bedtime. Plan to discharge to [facility] once sugars are controlled Qualifiers: Diabetes mellitus chcf insulin use: with marine oil terminal superintendent use Diabetes mellitus complication status: with kidney complications Diabetes mellitus complication detail: with chronic kidney disease Chronic kidney disease stage : on chronic dialysis Qualified Code(s): E11.22 - Type 2 diabetes mellitus with diabetic chronic kidney disease; N18.6 - End stage renal disease; Z79.4 - superintendent container terminal (current) use of insulin; Z99.2 - Dependence on renal dialysis (3) Elevated troponin Current Visit: Yes Status: Acute Assessment and plan: Troponins are elevated above baseline. Patient denies any chest pain at this time. Will trend troponins. Had repeat TTE done showing no acute changes from last echo. Per cardiology, no further intervention indicated (4) Cellulitis Current Visit: No Status: Acute Assessment and plan: Has bilateral lower extremity warmth. Improved. D/c cefazolin Qualifiers: Site of cellulitis: extremity Site of cellulitis of extremity: lower extremity Laterality: right Qualified Code(s): L03.115 - Cellulitis of right lower limb (5) COPD (chronic obstructive pulmonary disease) Current Visit: Yes Status: Chronic Assessment and plan: Currently not in acute exacerbation. Will place her on bronchodilators as needed Qualifiers: COPD type: unspecified COPD Qualified Code(s): J44.9 - Chronic obstructive pulmonary disease, unspecified (6) UTI (urinary tract infection) Current Visit: Yes Status: Acute Assessment and plan: Patient with history of multidrug resistant bacterial infection in urine. Likely colonization. Patient is asymptomatic. No indication to treat Qualifiers: Urinary tract infection type: acute cystitis Hematuria presence: with hematuria Qualified Code(s): N30.01 - Acute cystitis with hematuria (7) Atrial fibrillation Current Visit: Yes Status: Chronic Assessment and plan: Continue coreg. Patient not on anticoagulation due to anemia and prior history of vaginal bleed. Qualifiers: Atrial fibrillation type: chronic Qualified Code(s): I48.2 - Chronic atrial fibrillation (8) Anemia Current Visit: Yes Status: Chronic Assessment and plan: Hemoglobin 8.2. At baseline. Patient will receive Epogen as needed per nephrology recommendations Qualifiers: Anemia type: due to chronic kidney disease Chronic kidney disease stage: on chronic dialysis Qualified Code(s): N18.6 - End stage renal disease; D63.1 - Anemia in chronic kidney disease; Z99.2 - Dependence on renal dialysis (9) Chronic respiratory failure with hypoxia Current Visit: Yes Status: Chronic Assessment and plan: continue O2 supplementation to keep sats greater than 90% (10) Congestive heart failure Current Visit: Yes Status: Chronic Assessment and plan: Not in acute exacerbation. Continue home medications. Qualifiers: Heart failure type: diastolic Heart failure chronicity: chronic Qualified Code(s): I50.32 - Chronic diastolic (congestive) heart failure (11) Pressure ulcer of sacral region, stage 3 Current Visit: Yes Status: Acute Assessment and plan: Wound VAC in place with. We will consult wound care for evaluation and follow- up recommendations. Frequent repositioning. Minimize pressure. - Time Spent With Patient Total time spent is greater than 50% in coordination of care (as documented) at patient's floor/unit and/or counseling patient: - Subjective Interval history: No acute events overnight. Had temporary dialysis access placed - Constitutional Vitals: Temp Pulse Resp BP Pulse Ox 97.8 F 105 18 136/74 100 03/19/18 08:00 03/19/18 08:00 03/19/18 08:00 03/19/18 08:00 03/19/18 08:00 General appearance: Present: obese - Head Head exam: Present: atraumatic, normocephalic - Eye Eye exam: Present: PERRL, conjuntiva pink, sclera anicteric Pupils: Present: PERRL - Neck Neck exam general surgery: Present: supple, trachea midline. Absent: lymphadenopathy - Respiratory Respiratory exam: Present: CTAB. Absent: accessory muscle use, rales, rhonchi, wheezes - Cardiovascular Cardiovascular exam: Present: RRR, +S1, +S2. Absent: diastolic murmur, gallop, rubs, systolic murmur - GI/Abdominal GI/Abdominal exam: Present: normal bowel sounds, soft, no peritoneal signs. Absent: distended, tenderness - Extremities Exam Extremities exam: Present: warm, radial pulses palpable and symmetrical. Absent : calf tenderness, cyanotic, pedal edema - Neurological Exam Neurological exam: Present: CN II-XII intact, oriented X3, no focal deficits. Absent: pronater drift, facial droop, speech deficit - Skin Skin exam: Present: dry, intact Internal Medicine: Result - Labs CBC & Chem 7: 03/19/18 03:45 03/19/18 03:45 Labs: Short CBC 03/19/18 Range/Units 03:45 WBC 9.3 (4.3-11.1) K/mcL Hgb 9.5 L (11.5-15.4) g/dL Hct 32.4 L (35.3-44.9) % Plt Count 205 (140-400) K/mcL [facility] 03/19/18 03:45 Sodium 131 L Potassium 4.5 Chloride 95 L Carbon Dioxide 28 BUN 16 Creatinine 2.32 H Glucose 286 H Calcium 8.7 - Impressions Impressions Echocardiogram Limited Views 03/17/18 10:24 Impressions: LVEF 60%. Normal LV chamber size, wall thickness and overall function. Atypical septal motion consistent with post-operative status. Mild segmental left ventricular systolic dysfunction. Left Ventricular Wall Motion: Rest Echo Findings The basal inferior wall was hypokinetic. All other wall segments showed normal motion. Findings: Study Quality * Technically adequate exam. ECG Findings * Sinus rhythm with BBB. Left Ventricle * LVEF 60%. * Normal LV chamber size, wall thickness and overall function. * Atypical septal motion consistent with post-operative status. * Mild segmental left ventricular systolic dysfunction. Right Ventricle * Normal right ventricular structure and function. Pericardium * The pericardium appears normal. Aorta * Normally sized aortic root. IVC * The IVC is not well evaluated. Catheter Change 03/18/18 00:00 IMPRESSION: Successful placement of a temporary HD catheter over a guidewire. D/ / 03/18/2018 15:26:39 Shahla Robles MD / vinicius Interpreting Provider: Shahla Robles MD Chest X-Ray 03/18/18 14:05 IMPRESSION: Line placement without pneumothorax. Otherwise no change. D/ / 03/18/2018 14:37:55 Moisés Diop MD / Ronit Zimmer Interpreting Provider: Moisés Diop MD Consult Discharge Plan - Plan Referrals: Tristen Quintana MD [Primary Care Provider] -
[2018-03-19] MEDS: Insulin DETEMIR 100 UNIT/ML X5UNITS SQ SCH (22:21)
[2018-03-20 04:36] LABS: Hemoglobin 9.1 g/dL (11.5-15.4); Mean Corpuscular HGB Conc 29.4 g/dL (31.6-35.5); Mean Corpuscular Hemoglobin 25.9 pg (28.0-33.3); Mean Corpuscular Volume 88.1 fL (83.0-100.0); Mean Platelet Volume 10.5 fL (9.4-12.4); Platelet Count 222 K/mcL (140-400); Red Blood Count 3.52 M/mcL (3.82-4.97); Red Cell Distribution Width 15.3 % (11.5-14.5)
[2018-03-20 04:58] LABS: Calcium 8.7 mg/dL (8.6-10.3); Potassium 4.3 mEq/L (3.5-5.1)
[2018-03-20] MEDS: *HR* Morphine Sulfate SR (12 HR) 15 MG TABLET.ER PO SCH ×2 (06:18→16:49)
[2018-03-20] MEDS ORDERED: 0.9 % Sodium Chloride Mini Bag 100 ML ONE (08:29)
[2018-03-20] MEDS: Insulin LISPRO 300 UNITS/3 ML VIAL SQ SCH ×4 (08:35→20:45)
[2018-03-20] MEDS: Cholecalciferol (D-3) 1,000 UNIT TABLET PO SCH (08:36)
[2018-03-20] MEDS: ARIPiprazole 10 MG TABLET PO SCH (08:36)
[2018-03-20] MEDS: amLODIPine 5 MG TABLET PO SCH (08:36)
[2018-03-20] MEDS: Renal Vitamin 1 MG CAPSULE PO SCH (08:37)
[2018-03-20] MEDS: Budesonide/Formoterol 160/4.5 MDI IH SCH ×2 (09:11→21:49)
--- NOTE | 2018-03-20 11:19 | Internal Med Progress Note ---
Date of Encounter: 03/20/18 Time of Encounter: 11:00 - Assessment and plan (1) ESRD (end stage renal disease) on dialysis Current Visit: Yes Status: Chronic Assessment and plan: Nephrology following. Pt's fistula was obstructed on 03/18. will get fistulogram by IR on wednesday. Had temporary dialysis access placed and got dialysis on wednesday (2) DMII (diabetes mellitus, type 2) Current Visit: Yes Status: Chronic Assessment and plan: Uncontrolled. Blood sugars are elevated secondary to non compliance. Resume insulin. Patient will need senior care care as she is unable to care for herself at home/ administer meds. procurement services manager consulted. Adult protective services was called by her PCP. Will follow. Levemir increased to 20units at bedtime. Plan to discharge to ECF once sugars are controlled Qualifiers: Diabetes mellitus long term care phlebotomist insulin use: with long term care phlebotomist use Diabetes mellitus complication status: with kidney complications Diabetes mellitus complication detail: with chronic kidney disease Chronic kidney disease stage : on chronic dialysis Qualified Code(s): E11.22 - Type 2 diabetes mellitus with diabetic chronic kidney disease; N18.6 - End stage renal disease; Z79.4 - oysterman (current) use of insulin; Z99.2 - Dependence on renal dialysis (3) Elevated troponin Current Visit: Yes Status: Acute Assessment and plan: Troponins are elevated above baseline. Patient denies any chest pain at this time. Will trend troponins. Had repeat TTE done showing no acute changes from last echo. Per cardiology, no further intervention indicated (4) Cellulitis Current Visit: No Status: Acute Assessment and plan: Has bilateral lower extremity warmth. Improved. D/c cefazolin Qualifiers: Site of cellulitis: extremity Site of cellulitis of extremity: lower extremity Laterality: right Qualified Code(s): L03.115 - Cellulitis of right lower limb (5) COPD (chronic obstructive pulmonary disease) Current Visit: Yes Status: Chronic Assessment and plan: Currently not in acute exacerbation. Will place her on bronchodilators as needed Qualifiers: COPD type: unspecified COPD Qualified Code(s): J44.9 - Chronic obstructive pulmonary disease, unspecified (6) UTI (urinary tract infection) Current Visit: Yes Status: Acute Assessment and plan: Patient with history of multidrug resistant bacterial infection in urine. Likely colonization. Patient is asymptomatic. No indication to treat Qualifiers: Urinary tract infection type: acute cystitis Hematuria presence: with hematuria Qualified Code(s): N30.01 - Acute cystitis with hematuria (7) Atrial fibrillation Current Visit: Yes Status: Chronic Assessment and plan: Continue coreg. Patient not on anticoagulation due to anemia and prior history of vaginal bleed. Qualifiers: Atrial fibrillation type: chronic Qualified Code(s): I48.2 - Chronic atrial fibrillation (8) Anemia Current Visit: Yes Status: Chronic Assessment and plan: Hemoglobin 8.2. At baseline. Patient will receive Epogen as needed per nephrology recommendations Qualifiers: Anemia type: due to chronic kidney disease Chronic kidney disease stage: on chronic dialysis Qualified Code(s): N18.6 - End stage renal disease; D63.1 - Anemia in chronic kidney disease; Z99.2 - Dependence on renal dialysis (9) Chronic respiratory failure with hypoxia Current Visit: Yes Status: Chronic Assessment and plan: continue O2 supplementation to keep sats greater than 90% (10) Congestive heart failure Current Visit: Yes Status: Chronic Assessment and plan: Not in acute exacerbation. Continue home medications. Qualifiers: Heart failure type: diastolic Heart failure chronicity: chronic Qualified Code(s): I50.32 - Chronic diastolic (congestive) heart failure (11) Pressure ulcer of sacral region, stage 3 Current Visit: Yes Status: Acute Assessment and plan: Wound VAC in place with. We will consult wound care for evaluation and follow- up recommendations. Frequent repositioning. Minimize pressure. - Time Spent With Patient Total time spent is greater than 50% in coordination of care (as documented) at patient's floor/unit and/or counseling patient: - Subjective Interval history: No acute events overnight. Had temporary dialysis access placed - Constitutional Vitals: Temp Pulse Resp BP Pulse Ox 98.4 F 86 16 120/69 98 03/20/18 07:50 03/20/18 07:50 03/20/18 10:56 03/20/18 07:50 03/20/18 10:56 General appearance: Present: obese - Head Head exam: Present: atraumatic, normocephalic - Eye Eye exam: Present: PERRL, conjuntiva pink, sclera anicteric Pupils: Present: PERRL - Neck Neck exam general surgery: Present: supple, trachea midline. Absent: lymphadenopathy - Respiratory Respiratory exam: Present: CTAB. Absent: accessory muscle use, rales, rhonchi, wheezes - Cardiovascular Cardiovascular exam: Present: RRR, +S1, +S2. Absent: diastolic murmur, gallop, rubs, systolic murmur - GI/Abdominal GI/Abdominal exam: Present: normal bowel sounds, soft, no peritoneal signs. Absent: distended, tenderness - Extremities Exam Extremities exam: Present: warm, radial pulses palpable and symmetrical. Absent : calf tenderness, cyanotic, pedal edema - Neurological Exam Neurological exam: Present: CN II-XII intact, oriented X3, no focal deficits. Absent: pronater drift, facial droop, speech deficit - Skin Skin exam: Present: dry, intact Internal Medicine: Result - Labs CBC & Chem 7: 03/20/18 04:14 03/20/18 04:14 Labs: Short CBC 03/20/18 Range/Units 04:14 WBC 9.4 (4.3-11.1) K/mcL Hgb 9.1 L (11.5-15.4) g/dL Hct 31.0 L (35.3-44.9) % Plt Count 222 (140-400) K/mcL [facility] 03/20/18 04:14 Sodium 132 L Potassium 4.3 Chloride 93 L Carbon Dioxide 30 H BUN 26 H Creatinine 3.12 H Glucose 222 H Calcium 8.7 Consult Discharge Plan - Plan Referrals: Tristen Quintana MD [Primary Care Provider] -
[2018-03-20] MEDS: Nystatin SUSP 5 ML UD.LIQ PO SCH ×2 (15:52→20:44)
[2018-03-20] MEDS: Insulin DETEMIR 100 UNIT/ML X5UNITS SQ SCH (20:44)
[2018-03-21 03:26] LABS: Hemoglobin 8.6 g/dL (11.5-15.4); Immature Platelets 4.1 % (1.1-6.1); Mean Corpuscular HGB Conc 30.7 g/dL (31.6-35.5); Mean Corpuscular Hemoglobin 26.5 pg (28.0-33.3); Mean Corpuscular Volume 86.2 fL (83.0-100.0); Mean Platelet Volume 10.3 fL (9.4-12.4); Red Blood Count 3.25 M/mcL (3.82-4.97); Red Cell Distribution Width 15.2 % (11.5-14.5)
[2018-03-21 04:04] LABS: Calcium 8.7 mg/dL (8.6-10.3); Potassium 4.4 mEq/L (3.5-5.1)
[2018-03-21] MEDS: *HR* Morphine Sulfate SR (12 HR) 15 MG TABLET.ER PO SCH ×2 (06:08→16:58)
[2018-03-21] MEDS ORDERED: 0.9 % Sodium Chloride 250 ML IVC PRN (06:20)
[2018-03-21] MEDS ORDERED: 0.9 % Sodium Chloride 2,000 ML ONE (06:34)
[2018-03-21] MEDS: Budesonide/Formoterol 160/4.5 MDI IH SCH ×2 (07:55→20:08)
[2018-03-21] MEDS: Insulin LISPRO 300 UNITS/3 ML VIAL SQ SCH ×4 (07:59→22:27)
[2018-03-21] MEDS: Nystatin SUSP 5 ML UD.LIQ PO SCH ×4 (07:59→22:26)
[2018-03-21] MEDS ORDERED: *HR* Heparin 10,000 UNIT/10 ML VIAL IV PRN (08:32)
--- NOTE | 2018-03-21 09:06 | Nephrology Progress Note ---
Date of Encounter: 03/21/18 Time of Encounter: 09:04 - Assessment and Plan (1) ESRD (end stage renal disease) on dialysis Current Visit: Yes Status: Chronic HD MWF. Avoid nephrotoxins and renal dose all medications. Renal diet. Renal binders. HD in progress via temp. line. Fistulogram for LUE fistula, anticoagulation on hold. (2) DMII (diabetes mellitus, type 2) Current Visit: Yes Status: Chronic Per primary team. Qualifiers: Diabetes mellitus termite control service representative insulin use: with penitentiary use Diabetes mellitus complication status: with kidney complications Diabetes mellitus complication detail: with chronic kidney disease Chronic kidney disease stage : on chronic dialysis Qualified Code(s): E11.22 - Type 2 diabetes mellitus with diabetic chronic kidney disease; N18.6 - End stage renal disease; Z79.4 - termite inspector (current) use of insulin; Z99.2 - Dependence on renal dialysis (3) Pressure ulcer of sacral region, stage 3 Current Visit: Yes Status: Acute Wound vac in place. Subjective Principal diagnosis: high BP Interval history: Pt seen and examined in HD, tolerating well. Wound vac noted to sacrum. Objective - Vital Signs Vital signs: Vital Signs Temp Pulse Resp BP Pulse Ox 03/21/18 07:55 16 99 03/21/18 06:51 97.6 F 99 18 148/72 99 03/21/18 04:01 98.3 F 86 14 149/70 98 03/21/18 00:32 97.8 F 97 17 158/70 95 03/20/18 21:50 20 98 03/20/18 19:06 98.5 F 78 16 150/60 97 03/20/18 16:27 97.8 F 87 18 138/65 98 03/20/18 11:37 98.1 F 85 18 124/72 96 03/20/18 10:56 16 98 Intake and Output 03/20/18 03/21/18 03/21/18 23:59 07:59 15:59 Intake Total 0 / 0 Output Total 0 / 0 Balance 0 / 0 0 / 0 Intake: Oral 0 / 0 Output: Wound Drainage 0 / 0 coccyx 0 / 0 Other: Meal NPO Percent of Meal Consumed 0% Weight 100.5 kg Blood Glucose* 208 131 Patient Weight 03/21/18 23:59 Weight 100.5 kg - General Appearance General appearance: Present: obese, chronically ill, frail EENT: Present: ATNC, hearing intact, vision intact Neck: Present: supple Respiratory: Present: clear Cardiology: Present: edema (+2 pitting edema noted. ), normal S1, normal S2 Dialysis Vascular Access: Venous Catheter (Temp line to right neck, DRSG C/D/I.) thrill: No bruit: No Gastrointestinal: Present: no tenderness, no guarding Integumentary: Present: no rash, warm and dry, chronic venous stasis Neurologic: Present: alert and oriented x3 Psychiatric: Present: mood/affect appropriate, cooperative - Lab 03/21/18 04:00 03/21/18 03:08 Most recent lab results Calcium 8.7 mg/dL (8.6-10.3) 03/21/18 03:08 Phosphorus 4.5 mg/dL (2.7-4.5) 03/14/18 21:16 Magnesium 1.7 mg/dL (1.6-2.6) 03/14/18 21:16 Consult Discharge Plan - Plan Referrals: Tristen Quintana MD [Primary Care Provider] - (Going to [facility])
[2018-03-21] MEDS: Renal Vitamin 1 MG CAPSULE PO SCH (10:03)
[2018-03-21] MEDS: ARIPiprazole 10 MG TABLET PO SCH (10:03)
[2018-03-21] MEDS: Cholecalciferol (D-3) 1,000 UNIT TABLET PO SCH (10:03)
--- NOTE | 2018-03-21 10:35 | Internal Med Progress Note ---
Date of Encounter: 03/21/18 Time of Encounter: 10:30 - Assessment and plan (1) Dialysis AV fistula malfunction Current Visit: Yes Status: Acute Assessment and plan: Per IR, will do fistulogram on 03/23, because patient's last dose of plavix was on 03/18 Qualifiers: Encounter type: initial encounter Qualified Code(s): T82.590A - Other mechanical complication of surgically created arteriovenous fistula, initial encounter (2) ESRD (end stage renal disease) on dialysis Current Visit: Yes Status: Chronic Assessment and plan: Nephrology following. Pt's fistula was obstructed on 03/18. will get fistulogram by IR on friday 03/23. Had temporary dialysis access placed and got dialysis on wednesday (3) DMII (diabetes mellitus, type 2) Current Visit: Yes Status: Chronic Assessment and plan: Uncontrolled. Blood sugars are elevated secondary to non compliance. Resume insulin. Patient will need termination clerk care as she is unable to care for herself at home/ administer meds. access services representative consulted. Adult protective services was called by her PCP. Will follow. Levemir increased to 20units at bedtime. Plan to discharge to ECF once sugars are controlled Qualifiers: Diabetes mellitus penitentiary insulin use: with termination clerk use Diabetes mellitus complication status: with kidney complications Diabetes mellitus complication detail: with chronic kidney disease Chronic kidney disease stage : on chronic dialysis Qualified Code(s): E11.22 - Type 2 diabetes mellitus with diabetic chronic kidney disease; N18.6 - End stage renal disease; Z79.4 - long term (current) use of insulin; Z99.2 - Dependence on renal dialysis (4) Elevated troponin Current Visit: Yes Status: Acute Assessment and plan: Troponins are elevated above baseline. Patient denies any chest pain at this time. Will trend troponins. Had repeat TTE done showing no acute changes from last echo. Per cardiology, no further intervention indicated (5) Cellulitis Current Visit: No Status: Acute Assessment and plan: Has bilateral lower extremity warmth. Improved. D/c cefazolin Qualifiers: Site of cellulitis: extremity Site of cellulitis of extremity: lower extremity Laterality: right Qualified Code(s): L03.115 - Cellulitis of right lower limb (6) COPD (chronic obstructive pulmonary disease) Current Visit: Yes Status: Chronic Assessment and plan: Currently not in acute exacerbation. Will place her on bronchodilators as needed Qualifiers: COPD type: unspecified COPD Qualified Code(s): J44.9 - Chronic obstructive pulmonary disease, unspecified (7) UTI (urinary tract infection) Current Visit: Yes Status: Acute Assessment and plan: Patient with history of multidrug resistant bacterial infection in urine. Likely colonization. Patient is asymptomatic. No indication to treat Qualifiers: Urinary tract infection type: acute cystitis Hematuria presence: with hematuria Qualified Code(s): N30.01 - Acute cystitis with hematuria (8) Atrial fibrillation Current Visit: Yes Status: Chronic Assessment and plan: Continue coreg. Patient not on anticoagulation due to anemia and prior history of vaginal bleed. Qualifiers: Atrial fibrillation type: chronic Qualified Code(s): I48.2 - Chronic atrial fibrillation (9) Anemia Current Visit: Yes Status: Chronic Assessment and plan: Hemoglobin 8.2. At baseline. Patient will receive Epogen as needed per nephrology recommendations Qualifiers: Anemia type: due to chronic kidney disease Chronic kidney disease stage: on chronic dialysis Qualified Code(s): N18.6 - End stage renal disease; D63.1 - Anemia in chronic kidney disease; Z99.2 - Dependence on renal dialysis (10) Chronic respiratory failure with hypoxia Current Visit: Yes Status: Chronic Assessment and plan: continue O2 supplementation to keep sats greater than 90% (11) Congestive heart failure Current Visit: Yes Status: Chronic Assessment and plan: Not in acute exacerbation. Continue home medications. Qualifiers: Heart failure type: diastolic Heart failure chronicity: chronic Qualified Code(s): I50.32 - Chronic diastolic (congestive) heart failure (12) Pressure ulcer of sacral region, stage 3 Current Visit: Yes Status: Acute Assessment and plan: Wound VAC in place with. We will consult wound care for evaluation and follow- up recommendations. Frequent repositioning. Minimize pressure. - Time Spent With Patient Total time spent is greater than 50% in coordination of care (as documented) at patient's floor/unit and/or counseling patient: - Subjective Interval history: No acute events overnight. Had temporary dialysis access placed - Constitutional Vitals: Temp Pulse Resp BP Pulse Ox 98.3 F 99 18 155/71 99 03/21/18 08:30 03/21/18 06:51 03/21/18 08:30 03/21/18 10:15 03/21/18 07:55 General appearance: Present: obese - Head Head exam: Present: atraumatic, normocephalic - Eye Eye exam: Present: PERRL, conjuntiva pink, sclera anicteric Pupils: Present: PERRL - Neck Neck exam general surgery: Present: supple, trachea midline. Absent: lymphadenopathy - Respiratory Respiratory exam: Present: CTAB. Absent: accessory muscle use, rales, rhonchi, wheezes - Cardiovascular Cardiovascular exam: Present: RRR, +S1, +S2. Absent: diastolic murmur, gallop, rubs, systolic murmur - GI/Abdominal GI/Abdominal exam: Present: normal bowel sounds, soft, no peritoneal signs. Absent: distended, tenderness - Extremities Exam Extremities exam: Present: warm, radial pulses palpable and symmetrical. Absent : calf tenderness, cyanotic, pedal edema - Neurological Exam Neurological exam: Present: CN II-XII intact, oriented X3, no focal deficits. Absent: pronater drift, facial droop, speech deficit - Skin Skin exam: Present: dry, intact Internal Medicine: Result - Labs CBC & Chem 7: 03/21/18 04:00 03/21/18 03:08 Labs: Short CBC 03/21/18 Range/Units 04:00 WBC 8.4 (4.3-11.1) K/mcL Hgb 8.6 L (11.5-15.4) g/dL Hct 28.0 L (35.3-44.9) % Plt Count 241 (140-400) K/mcL [facility] 03/21/18 03:08 Sodium 129 L Potassium 4.4 Chloride 92 L Carbon Dioxide 30 H BUN 38 H Creatinine 3.48 H Glucose 184 H Calcium 8.7 Consult Discharge Plan - Plan Referrals: Tristen Quintana MD [Primary Care Provider] - (Going to [facility])
[2018-03-21] MEDS: amLODIPine 5 MG TABLET PO SCH (12:41)
[2018-03-21] MEDS: Insulin DETEMIR 100 UNIT/ML X5UNITS SQ SCH (22:25)
[2018-03-21] MEDS: Ondansetron 4 MG/2 ML VIAL IVP PRN (22:25)
[2018-03-22] MEDS: *HR* Promethazine 25 MG/ML VIAL IVP PRN ×2 (00:43→21:18)
[2018-03-22] MEDS: *HR* Morphine Sulfate SR (12 HR) 15 MG TABLET.ER PO SCH ×2 (05:27→17:36)
[2018-03-22] MEDS: Ondansetron 4 MG/2 ML VIAL IVP PRN (08:09)
[2018-03-22] MEDS: Renal Vitamin 1 MG CAPSULE PO SCH (08:09)
[2018-03-22] MEDS: Cholecalciferol (D-3) 1,000 UNIT TABLET PO SCH (08:09)
[2018-03-22] MEDS: Nystatin SUSP 5 ML UD.LIQ PO SCH ×4 (08:09→19:46)
[2018-03-22] MEDS: ARIPiprazole 10 MG TABLET PO SCH (08:09)
[2018-03-22] MEDS: amLODIPine 5 MG TABLET PO SCH (08:09)
[2018-03-22] MEDS: Insulin LISPRO 300 UNITS/3 ML VIAL SQ SCH ×4 (08:10→19:46)
[2018-03-22] MEDS: Budesonide/Formoterol 160/4.5 MDI IH SCH ×2 (09:50→21:11)
--- NOTE | 2018-03-22 16:51 | Internal Med Progress Note ---
Date of Encounter: 03/22/18 Time of Encounter: 12:50 - Assessment and plan (1) DMII (diabetes mellitus, type 2) Current Visit: Yes Status: Chronic Assessment and plan: Patient was admitted with hyperglycemia with suspected noncompliance at home. Patient has had multiple recurrent admissions related to hypoglycemia and hyperglycemia, she would benefit from rehabilitation placement, which has been brought up multiple times but patient keeps refusing. Blood sugars currently appropriately controlled. Continue current regimen of basal bolus insulin, Accu-Chek blood glucose monitoring. Diabetic diet. Hemoglobin A1c noted to be 9.7%. Qualifiers: Diabetes mellitus long goods drier insulin use: with correction use Diabetes mellitus complication status: with kidney complications Diabetes mellitus complication detail: with chronic kidney disease Chronic kidney disease stage : on chronic dialysis Qualified Code(s): E11.22 - Type 2 diabetes mellitus with diabetic chronic kidney disease; N18.6 - End stage renal disease; Z79.4 - custodial (current) use of insulin; Z99.2 - Dependence on renal dialysis (2) Dialysis AV fistula malfunction Current Visit: Yes Status: Acute Assessment and plan: Patient has been ready for discharge 3 days ago when she was noted to have AV fistula malfunction. Patient has been off Plavix for 5 days, anticipate fistulogram tomorrow. Qualifiers: Encounter type: initial encounter Qualified Code(s): T82.590A - Other mechanical complication of surgically created arteriovenous fistula, initial encounter (3) COPD (chronic obstructive pulmonary disease) Current Visit: Yes Status: Chronic Assessment and plan: Not in acute exacerbation. Continue when necessary breathing treatments, supplemental oxygen, inhaled corticosteroids. Qualifiers: COPD type: unspecified COPD Qualified Code(s): J44.9 - Chronic obstructive pulmonary disease, unspecified (4) UTI (urinary tract infection) Current Visit: Yes Status: Acute Assessment and plan: Patient with history of multidrug resistant bacterial infection in urine. Likely colonization. Patient is asymptomatic. No indication to treat Qualifiers: Urinary tract infection type: acute cystitis Hematuria presence: with hematuria Qualified Code(s): N30.01 - Acute cystitis with hematuria (5) Cellulitis Current Visit: Yes Status: Resolved Qualifiers: Site of cellulitis: extremity Site of cellulitis of extremity: lower extremity Laterality: right Qualified Code(s): L03.115 - Cellulitis of right lower limb (6) Atrial fibrillation Current Visit: Yes Status: Chronic Assessment and plan: Currently rate controlled. Continue telemetry monitoring, beta vera. Not a candidate for anticoagulation due to anemia and history of vaginal bleed. Qualifiers: Atrial fibrillation type: chronic Qualified Code(s): I48.2 - Chronic atrial fibrillation (7) Anemia Current Visit: Yes Status: Chronic Qualifiers: Anemia type: due to chronic kidney disease Chronic kidney disease stage: on chronic dialysis Qualified Code(s): N18.6 - End stage renal disease; D63.1 - Anemia in chronic kidney disease; Z99.2 - Dependence on renal dialysis (8) ESRD (end stage renal disease) on dialysis Current Visit: Yes Status: Chronic Assessment and plan: Nephrology on board, currently has temporary dialysis catheter. Plan for fistulogram in a.m. (9) Chronic respiratory failure with hypoxia Current Visit: Yes Status: Chronic Assessment and plan: Due to underlying COPD and CHF. (10) Congestive heart failure Current Visit: Yes Status: Chronic Qualifiers: Heart failure type: diastolic Heart failure chronicity: chronic Qualified Code(s): I50.32 - Chronic diastolic (congestive) heart failure (11) Pressure ulcer of sacral region, stage 3 Current Visit: Yes Status: Chronic Assessment and plan: Present on admission. Continue local wound care, frequent repositioning. - Time Spent With Patient Total time spent is greater than 50% in coordination of care (as documented) at patient's floor/unit and/or counseling patient: - Subjective Interval history: Reports feeling well. No chest pain, shortness of breath, palpitations. Has chronic leg swelling. - Constitutional Vitals: Temp Pulse Resp BP Pulse Ox 97.9 F 93 18 133/78 100 03/22/18 16:16 03/22/18 16:16 03/22/18 16:16 03/22/18 16:16 03/22/18 16:16 General appearance: Present: A&O X 2, obese, answers questions appropriately - Respiratory Respiratory exam: Present: CTAB. Absent: accessory muscle use, rales, rhonchi, wheezes - Cardiovascular Cardiovascular exam: Present: irregular rhythm, +S1, +S2, systolic murmur. Absent: diastolic murmur, gallop, rubs - GI/Abdominal GI/Abdominal exam: Present: normal bowel sounds, soft, no peritoneal signs. Absent: distended, tenderness - Extremities Exam Extremities exam: Present: pedal edema, warm, radial pulses palpable and symmetrical. Absent: calf tenderness, cyanotic - Neurological Exam Neurological exam: Present: CN II-XII intact, oriented X3, no focal deficits. Absent: pronater drift, facial droop, speech deficit Internal Medicine: Result - Labs CBC & Chem 7: 03/21/18 04:00 03/21/18 03:08 Consult Discharge Plan - Plan Referrals: Tristen Quintana MD [Primary Care Provider] - ([facility])
[2018-03-22] MEDS: Insulin DETEMIR 100 UNIT/ML X5UNITS SQ SCH (21:18)
[2018-03-23] MEDS: *HR* Morphine Sulfate SR (12 HR) 15 MG TABLET.ER PO SCH ×2 (05:58→18:13)
[2018-03-23] MEDS ORDERED: 0.9 % Sodium Chloride 2,000 ML ONE (06:20)
[2018-03-23] MEDS ORDERED: 0.9 % Sodium Chloride 250 ML IVC PRN (07:08)
[2018-03-23 07:57] LABS: Basophils # 0.1 K/mcL (0.0-0.2); Basophils % 0.8 %; Eosinophils # 0.2 K/mcL (0.0-0.6); Eosinophils % 1.9 %; Hematocrit 33.6 % (35.3-44.9); Hemoglobin 10.3 g/dL (11.5-15.4); Immature Granulocytes % 0.7 % (0-4); Lymphocytes # 2.4 K/mcL (0.6-4.6); Lymphocytes % 21.8 %; Mean Corpuscular HGB Conc 30.7 g/dL (31.6-35.5); Mean Corpuscular Hemoglobin 26.5 pg (28.0-33.3); Mean Corpuscular Volume 86.6 fL (83.0-100.0); Mean Platelet Volume 10.5 fL (9.4-12.4); Monocytes # 0.7 K/mcL (0.0-1.3); Monocytes % 6.4 %; Neutrophils # 7.4 K/mcL (1.6-8.9); Platelet Count 302 K/mcL (140-400); Red Blood Count 3.88 M/mcL (3.82-4.97); Red Cell Distribution Width 15.4 % (11.5-14.5); Segmented Neutrophils % 68.4 %
[2018-03-23 08:03] LABS: INR 1.4; Prothrombin Time 14.7 Seconds (9.4-12.1)
[2018-03-23] MEDS ORDERED: *HR* Heparin 10,000 UNIT/10 ML VIAL IV PRN (08:17)
[2018-03-23 08:22] LABS: Calcium 9.4 mg/dL (8.6-10.3); Potassium 4.8 mEq/L (3.5-5.1)
[2018-03-23] MEDS: Insulin LISPRO 300 UNITS/3 ML VIAL SQ SCH ×4 (08:43→20:21)
[2018-03-23] MEDS: Nystatin SUSP 5 ML UD.LIQ PO SCH ×4 (08:44→20:06)
--- NOTE | 2018-03-23 09:51 | Nephrology Progress Note ---
Date of Encounter: 03/23/18 Time of Encounter: 09:40 - Assessment and Plan (1) ESRD (end stage renal disease) on dialysis Status: Chronic See below. (2) Problem with dialysis access Status: Acute Shuntogram planned today for her left forearm AV graft. Then plan for HD. If it works well, then would request to have the RIJ Temporary HD catheter removed and okay to d/c. Qualifiers: Encounter type: subsequent encounter Qualified Code(s): T82.898D - Other specified complication of vascular prosthetic devices, implants and grafts, subsequent encounter Subjective Principal diagnosis: high BP Interval history: Pt was seen /examined before dialysis. She reported feeling well and looked forward to dialysis Objective - Vital Signs Vital signs: Vital Signs Temp Pulse Resp BP Pulse Ox 03/23/18 07:14 98.5 F 96 18 117/75 96 03/23/18 04:06 98.4 F 90 18 150/66 98 03/23/18 00:00 97.9 F 87 18 171/70 95 03/22/18 21:11 20 99 03/22/18 20:23 98.7 F 89 18 138/72 99 03/22/18 16:16 97.9 F 93 18 133/78 100 03/22/18 11:19 97.8 F 94 18 120/75 100 03/22/18 09:50 16 96 Intake and Output 03/22/18 03/23/18 03/23/18 23:59 07:59 15:59 Intake Total 120 / 120 0 / 0 Balance 120 / 120 0 / 0 Intake: Oral 120 / 120 0 / 0 Other: Meal Dinner NPO Percent of Meal Consumed 30% Weight 98.4 kg Blood Glucose* 189 158 Patient Weight 03/23/18 23:59 Weight 98.4 kg - General Appearance Exam: General appearance: Present: well-developed, obese, chronically ill, frail EENT: Present: ATNC, PERRL, mucous membranes moist Neck: Present: supple Respiratory: Present: clear Cardiology: Present: edema, regular rate, regular rhythm, normal S1, normal S2 Dialysis Vascular Access: Arteriovenous Graft (LUE AVG) and a temporary RIJ HD catheter was in placed and dressing was C/D/I thrill: Yes (weak) bruit: Yes (weak) Gastrointestinal: Present: normoactive bowel sounds, no tenderness (w) Integumentary: Present: ecchymotic, chronic venous stasis Neurologic: Present: no focal deficit, no asterixis Musculoskeletal: Present: no deformities, no clubbing Psychiatric: Present: mood/affect appropriate, cooperative - Lab 03/24/18 03:40 03/24/18 03:40 Most recent lab results Calcium 9.4 mg/dL (8.6-10.3) 03/23/18 07:20 Phosphorus 5.0 mg/dL (2.7-4.5) H 03/23/18 07:20 Magnesium 1.7 mg/dL (1.6-2.6) 03/14/18 21:16 Consult Discharge Plan - Plan Additional Instructions: F/up with PCP in 1-2 weeks F/up with HD 3 times/week- [facility] Referrals: Tristen Quintana MD [Primary Care Provider] - (Going to [facility])
[2018-03-23] MEDS: Budesonide/Formoterol 160/4.5 MDI IH SCH ×2 (11:08→21:32)
[2018-03-23] MEDS ORDERED: Heparin 1,000 UNITS/500 mL 500 ML ONE (11:18)
[2018-03-23] MEDS ORDERED: 0.9 % Sodium Chloride 500 ML ONE ×2 (11:18→13:15)
[2018-03-23] MEDS ORDERED: *HR* Alteplase (Cathflo) 2 MG VIAL IVP ONE (12:05)
[2018-03-23] MEDS ORDERED: *HR* Midazolam HCl 2 MG/2 ML VIAL IVP ONE (13:04)
[2018-03-23] MEDS ORDERED: *HR* FentaNYL (PF) 100 MCG/2 ML VIAL IVP ONE (13:04)
--- NOTE | 2018-03-23 13:05 | Pre-Sedation Evaluation ---
Pre-sedation evaluation - Pre-sedation checklist Date of procedure: 03/18/18 Procedure: [facility] Recent Vitals: Last Vital Signs Temp 98.5 F 03/23/18 07:14 Pulse 96 03/23/18 07:14 Resp 18 03/23/18 07:14 BP 117/75 03/23/18 07:14 Pulse Ox 96 03/23/18 07:14 H&P (including ROS) documented in medical record: Yes Previous reaction to sedatives/anesthetics: No Dietary Status: NPO after Midnight Airway Assessment: Patient can open mouth completely, TMJ function normal, Micrognathia (under-bite, receding chin) absent, Neck with adequate range of motion Dentition: No loose teeth or bridges, dentures removed Possible difficult airway: No ASA Classification *see protocol: CLASS II-Mild systemic disease Plan of Care: Pt appropriate candidate for procedure/moderate/conscious sedation , Risks/benefits of procedure/sedation discussed w/ patient/family, If not NPO; Risk of intake outweiged by necessity to perform procedure
--- NOTE | 2018-03-23 14:10 | IR Procedure Note ---
Date of procedure: 03/23/18 Consent Obtained: Written consent Timeout: Correct patient and procedure verified, Correct site verified, Time out performed, Skin prep completed Indications: clotted fistula Procedure Performed: fistulogram, thrombolysis, angioplasty Was there an field assistant present: No Site/Technique: lt arm, 7mm balloon on arterial side, 8mm balloon on venous side , 5mg tPa Results/Findings: clotted initially, open after inteervention Estimated blood loss (cc): 4 Complications: None; Tolerated procedure well Post Procedure Treatment Plan: OK to dialyze Specimen: none
[2018-03-23] MEDS: Renal Vitamin 1 MG CAPSULE PO SCH (14:37)
[2018-03-23] MEDS: Aspirin Enteric Coated 81 MG Tablet PO SCH (14:37)
[2018-03-23] MEDS: Cholecalciferol (D-3) 1,000 UNIT TABLET PO SCH (14:37)
[2018-03-23] MEDS: ARIPiprazole 10 MG TABLET PO SCH (14:37)
[2018-03-23] MEDS: amLODIPine 5 MG TABLET PO SCH (14:37)
--- NOTE | 2018-03-23 16:56 | Internal Med Progress Note ---
Date of Encounter: 03/23/18 Time of Encounter: 16:51 - Assessment and plan (1) Dialysis AV fistula malfunction Current Visit: Yes Status: Acute Assessment and plan: Patient has been ready for discharge 3 days ago when she was noted to have AV fistula malfunction. Patient has been off Plavix for 5 days, had fistulogram, thrombolysis, angioplasty by IR today; Developed postprocedure bleeding at the fistula site. Evaluated by IR physician , recommended constant application of pressure and close monitoring for bleeding. Patient is therefore being transferred to ICU; continue to monitor hemoglobin. Qualifiers: Encounter type: initial encounter Qualified Code(s): T82.590A - Other mechanical complication of surgically created arteriovenous fistula, initial encounter (2) DMII (diabetes mellitus, type 2) Current Visit: Yes Status: Chronic Assessment and plan: Patient was admitted with hyperglycemia with suspected noncompliance at home. Patient has had multiple recurrent admissions related to hypoglycemia and hyperglycemia, she would benefit from rehabilitation placement, which has been brought up multiple times but patient keeps refusing. Blood sugars currently appropriately controlled. Continue current regimen of basal bolus insulin, Accu-Chek blood glucose monitoring. Diabetic diet. Hemoglobin A1c noted to be 9.7%. Qualifiers: Diabetes mellitus half-way insulin use: with half-way use Diabetes mellitus complication status: with kidney complications Diabetes mellitus complication detail: with chronic kidney disease Chronic kidney disease stage : on chronic dialysis Qualified Code(s): E11.22 - Type 2 diabetes mellitus with diabetic chronic kidney disease; N18.6 - End stage renal disease; Z79.4 - alf (current) use of insulin; Z99.2 - Dependence on renal dialysis (3) COPD (chronic obstructive pulmonary disease) Current Visit: Yes Status: Chronic Assessment and plan: Not in acute exacerbation. Continue when necessary breathing treatments, supplemental oxygen, inhaled corticosteroids. Qualifiers: COPD type: unspecified COPD Qualified Code(s): J44.9 - Chronic obstructive pulmonary disease, unspecified (4) UTI (urinary tract infection) Current Visit: Yes Status: Ruled-out Assessment and plan: Patient with history of multidrug resistant bacterial infection in urine. Likely colonization. Patient is asymptomatic. No indication to treat Qualifiers: Urinary tract infection type: acute cystitis Hematuria presence: with hematuria Qualified Code(s): N30.01 - Acute cystitis with hematuria (5) Cellulitis Current Visit: Yes Status: Resolved Qualifiers: Site of cellulitis: extremity Site of cellulitis of extremity: lower extremity Laterality: right Qualified Code(s): L03.115 - Cellulitis of right lower limb (6) Atrial fibrillation Current Visit: Yes Status: Chronic Assessment and plan: Currently rate controlled. Continue telemetry monitoring, beta vera. Not a candidate for anticoagulation due to anemia and history of vaginal bleed. Qualifiers: Atrial fibrillation type: chronic Qualified Code(s): I48.2 - Chronic atrial fibrillation (7) Anemia Current Visit: Yes Status: Chronic Qualifiers: Anemia type: due to chronic kidney disease Chronic kidney disease stage: on chronic dialysis Qualified Code(s): N18.6 - End stage renal disease; D63.1 - Anemia in chronic kidney disease; Z99.2 - Dependence on renal dialysis (8) ESRD (end stage renal disease) on dialysis Current Visit: Yes Status: Chronic Assessment and plan: Nephrology on board, currently has temporary dialysis catheter. AV fistulogram , angioplasty was completed today. Due to ongoing bleeding from the fistula site, hemodialysis could not be completed today. Anticipate dialysis in a.m. via temporary dialysis catheter. (9) Chronic respiratory failure with hypoxia Current Visit: Yes Status: Chronic (10) Congestive heart failure Current Visit: Yes Status: Chronic Assessment and plan: Not in acute exacerbation. Continue home medications. Qualifiers: Heart failure type: diastolic Heart failure chronicity: chronic Qualified Code(s): I50.32 - Chronic diastolic (congestive) heart failure (11) Pressure ulcer of sacral region, stage 3 Current Visit: Yes Status: Chronic - Time Spent With Patient Total time spent is greater than 50% in coordination of care (as documented) at patient's floor/unit and/or counseling patient: - Subjective Interval history: Reports feeling tired; has low back and buttock pain due to lying in bed since morning; went for fistulogram today and had declotting with tPA and developed significant bleeding from AV fistula site, and is now being transferred to ICU for closer monitoring and 1:1 watch due to persistent intermittent bleeding; - Constitutional Vitals: Temp Pulse Resp BP Pulse Ox 98.5 F 112 18 130/75 93 03/23/18 07:14 03/23/18 16:30 03/23/18 16:30 03/23/18 16:30 03/23/18 16:30 General appearance: Present: A&O X 2, obese, answers questions appropriately - Respiratory Respiratory exam: Present: CTAB. Absent: accessory muscle use, rales, rhonchi, wheezes - Cardiovascular Cardiovascular exam: Present: irregular rhythm, +S1, +S2. Absent: diastolic murmur, gallop, rubs, systolic murmur - GI/Abdominal GI/Abdominal exam: Present: normal bowel sounds, soft, no peritoneal signs. Absent: distended, tenderness - Extremities Exam Extremities exam: Present: pedal edema, warm, radial pulses palpable and symmetrical. Absent: calf tenderness, cyanotic Additional comments: left arm AVF site- soaked dressing - Neurological Exam Neurological exam: Present: CN II-XII intact, oriented X3, no focal deficits. Absent: pronater drift, facial droop, speech deficit Internal Medicine: Result - Labs CBC & Chem 7: 03/23/18 07:20 03/23/18 07:20 Labs: Short CBC 03/23/18 Range/Units 07:20 WBC 10.8 (4.3-11.1) K/mcL Hgb 10.3 L D (11.5-15.4) g/dL Hct 33.6 L (35.3-44.9) % Plt Count 302 (140-400) K/mcL Neutrophils # 7.4 (1.6-8.9) K/mcL BMP 03/23/18 07:20 Sodium 130 L Potassium 4.8 Chloride 94 L Carbon Dioxide 26 BUN 33 H Creatinine 3.08 H Glucose 161 H Calcium 9.4 Liver Function 03/23/18 Range/Units 07:20 Albumin 3.0 L (3.5-5.7) g/dL - ABG Interpretation ABG results: PT/INR, D-dimer PT 14.7 Seconds (9.4-12.1) H 03/23/18 07:20 - Impressions Impressions Permanent Dialysis Access 03/23/18 00:00 IMPRESSION: Successful mechanical and pharmacological thrombolysis of the the patients dialysis graft. Successful JEWEL HOLE GAUGER venous anastomotic stenosis. Taoist of thrill in dialysis graft. D/ / 03/23/2018 15:46:22 Shahla Robles MD / daniel Interpreting Provider: Shahla Robles MD Permanent Dialysis Access 03/23/18 00:00 IMPRESSION: Successful mechanical and pharmacological thrombolysis of the the patients dialysis graft. Successful JEWEL HOLE GAUGER venous anastomotic stenosis. Taoist of thrill in dialysis graft. D/ / 03/23/2018 15:46:22 Shahla Robles MD / daniel Interpreting Provider: Shahla Robles MD Consult Discharge Plan - Plan Referrals: Tristen Quintana MD [Primary Care Provider] - (Going to [facility])
[2018-03-23] MEDS: Ondansetron 4 MG/2 ML VIAL IVP PRN (17:02)
[2018-03-23 17:34] LABS: Hematocrit 33.8 % (35.3-44.9); Hemoglobin 10.6 g/dL (11.5-15.4)
[2018-03-23] MEDS: Insulin DETEMIR 100 UNIT/ML X5UNITS SQ SCH (20:09)
[2018-03-23 23:14] LABS: Hematocrit 30.6 % (35.3-44.9); Hemoglobin 9.3 g/dL (11.5-15.4)
[2018-03-24 03:58] LABS: Basophils # 0.1 K/mcL (0.0-0.2); Basophils % 0.4 %; Eosinophils # 0.1 K/mcL (0.0-0.6); Eosinophils % 1.2 %; Hematocrit 30.7 % (35.3-44.9); Hemoglobin 9.6 g/dL (11.5-15.4); Immature Granulocytes % 0.6 % (0-4); Lymphocytes % 16.6 %; Mean Corpuscular HGB Conc 31.3 g/dL (31.6-35.5); Mean Corpuscular Volume 86.2 fL (83.0-100.0); Mean Platelet Volume 10.6 fL (9.4-12.4); Monocytes # 0.9 K/mcL (0.0-1.3); Monocytes % 7.9 %; Neutrophils # 8.6 K/mcL (1.6-8.9); Platelet Count 244 K/mcL (140-400); Red Blood Count 3.56 M/mcL (3.82-4.97); Red Cell Distribution Width 14.8 % (11.5-14.5); Segmented Neutrophils % 73.3 %
[2018-03-24 04:18] LABS: Potassium 5.3 mEq/L (3.5-5.1)
[2018-03-24] MEDS: *HR* Morphine Sulfate SR (12 HR) 15 MG TABLET.ER PO SCH (06:52)
[2018-03-24] MEDS: Insulin LISPRO 300 UNITS/3 ML VIAL SQ SCH ×2 (07:43→11:54)
[2018-03-24] MEDS ORDERED: 0.9 % Sodium Chloride Mini Bag 100 ML ONE (07:55)
[2018-03-24] MEDS ORDERED: 0.9 % Sodium Chloride 250 ML IVC PRN (08:05)
[2018-03-24] MEDS: Nystatin SUSP 5 ML UD.LIQ PO SCH ×2 (09:00→13:51)
--- NOTE | 2018-03-24 09:16 | Nephrology Progress Note ---
Date of Encounter: 03/24/18 Time of Encounter: 09:12 - Assessment and Plan (1) ESRD (end stage renal disease) on dialysis Current Visit: Yes Status: Chronic HD MWF, was missed yesterday, HD today. Avoid nephrotoxins and renal dose all medications. Renal diet. Renal binders. Fistulogram completed yesterday, had some bleeding issues, seems resolved. Fistula is running well with HD, may remove temporary line. (2) DMII (diabetes mellitus, type 2) Current Visit: Yes Status: Chronic Per primary team. Qualifiers: Diabetes mellitus penitentiary insulin use: with terminal clerk use Diabetes mellitus complication status: with kidney complications Diabetes mellitus complication detail: with chronic kidney disease Chronic kidney disease stage : on chronic dialysis Qualified Code(s): E11.22 - Type 2 diabetes mellitus with diabetic chronic kidney disease; N18.6 - End stage renal disease; Z79.4 - manager intermediate (current) use of insulin; Z99.2 - Dependence on renal dialysis (3) Pressure ulcer of sacral region, stage 3 Current Visit: Yes Status: Chronic Per primary. (4) Anemia Current Visit: Yes Status: Acute HGB goal 10-11. Hgb 9.9 today, already on Aranesp. Qualifiers: Anemia type: unspecified type Qualified Code(s): D64.9 - Anemia, unspecified (5) Hyperkalemia Current Visit: No Status: Acute K is 5.3 today, HD ordered. Subjective Principal diagnosis: high BP Interval history: Pt seen and examined in the ICU, tolerating well. Objective - Vital Signs Vital signs: Vital Signs Temp Pulse Resp BP Pulse Ox 03/24/18 08:00 98.1 F 95 20 115/63 100 03/24/18 07:00 102 16 125/80 99 03/24/18 06:00 102 18 145/64 100 03/24/18 05:00 98.4 F 92 16 130/64 98 03/24/18 04:00 93 14 120/66 100 03/24/18 03:00 92 14 107/55 98 03/24/18 02:00 100 16 120/57 99 03/24/18 01:00 87 16 123/69 100 03/24/18 00:00 89 14 111/48 96 03/23/18 23:50 98.7 F 03/23/18 23:00 84 16 126/61 99 03/23/18 22:00 90 14 118/55 98 03/23/18 21:32 18 98 03/23/18 21:00 93 14 101/62 97 03/23/18 20:49 99.1 F 03/23/18 20:00 105 18 131/72 100 03/23/18 19:00 98 16 119/59 97 03/23/18 18:00 110 18 138/65 100 03/23/18 16:45 98.5 F 113 16 119/60 98 03/23/18 16:30 112 18 130/75 93 03/23/18 13:56 105 10 108/64 92 03/23/18 13:51 96 18 108/64 95 03/23/18 13:45 101 19 133/72 96 03/23/18 13:40 98 12 144/79 93 03/23/18 13:36 105 20 160/78 Intake and Output 03/23/18 03/24/18 03/24/18 23:59 07:59 15:59 Intake Total 0 / 0 Output Total 30 / 30 50 / 50 Balance -30 / -30 -50 / -50 Intake: Oral 0 / 0 Output: Urine 0 / 0 50 / 50 Other 25 / 25 Wound Drainage 5 / 5 coccyx 5 / 5 Other: # Voids 1 # Urine Diapers 1 Weight 96.4 kg Blood Glucose* 187 138 - General Appearance General appearance: Present: chronically ill, frail EENT: Present: ATNC, hearing intact, vision intact Neck: Present: supple Respiratory: Present: clear Cardiology: Present: edema (Trace BLE edema.), normal S1, normal S2 Dialysis Vascular Access: Arteriovenous Fistula (Temp line to Right Neck, DRSG C /D/I.) thrill: Yes bruit: Yes Gastrointestinal: Present: normoactive bowel sounds, no tenderness Integumentary: Present: no rash, warm and dry Neurologic: Present: alert and oriented x3 Psychiatric: Present: mood/affect appropriate, cooperative - Lab 03/24/18 03:40 03/24/18 03:40 Most recent lab results Calcium 9.0 mg/dL (8.6-10.3) 03/24/18 03:40 Phosphorus 5.0 mg/dL (2.7-4.5) H 03/23/18 07:20 Magnesium 1.7 mg/dL (1.6-2.6) 03/14/18 21:16 Consult Discharge Plan - Plan Referrals: Tristen Quintana MD [Primary Care Provider] - (Going to [facility])
[2018-03-24] MEDS: Budesonide/Formoterol 160/4.5 MDI IH SCH (11:30)
[2018-03-24 13:34] VITALS: BP 125/63
[2018-03-24] MEDS: ARIPiprazole 10 MG TABLET PO SCH ×2 (13:49→13:50)
[2018-03-24] MEDS: Cholecalciferol (D-3) 1,000 UNIT TABLET PO SCH (13:50)
[2018-03-24] MEDS: Aspirin Enteric Coated 81 MG Tablet PO SCH (13:50)
[2018-03-24] MEDS: amLODIPine 5 MG TABLET PO SCH (13:50)
[2018-03-24] MEDS: Renal Vitamin 1 MG CAPSULE PO SCH ×2 (13:50→13:51)
--- NOTE | 2018-03-24 14:46 | Discharge Summary ---
- NOTES TO OUTPATIENT PROVIDER Notes to Outpatient Provider: Hyperglycemia likely noncompliance, improved; AV fistula malfunction s/p angioplasty; Orders not resulted at time of discharge: Pending orders 03/25/18 04:00 BMP [Basic Metabolic Panel] AM 0400 CBC [Complete Blood Count] [HEME] AM 0400 03/26/18 04:00 BMP [Basic Metabolic Panel] AM 0400 CBC [Complete Blood Count] [HEME] AM 0400 Date of Encounter: 03/24/18 Time of Encounter: 14:43 - Discharge Diagnosis (1) Dialysis AV fistula malfunction Priority: Primary Status: Acute Qualifiers: Encounter type: initial encounter Qualified Code(s): T82.590A - Other mechanical complication of surgically created arteriovenous fistula, initial encounter (2) DMII (diabetes mellitus, type 2) Priority: Secondary Status: Chronic Qualifiers: Diabetes mellitus 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 truck driver insulin use: with intermodal truck driver use Diabetes mellitus complication status: with kidney complications Diabetes mellitus complication detail: with chronic kidney disease Chronic kidney disease stage : on chronic dialysis Qualified Code(s): E11.22 - Type 2 diabetes mellitus with diabetic chronic kidney disease; N18.6 - End stage renal disease; Z79.4 - senior care (current) use of insulin; Z99.2 - Dependence on renal dialysis (3) COPD (chronic obstructive pulmonary disease) Priority: Secondary Status: Chronic Qualifiers: COPD type: unspecified COPD Qualified Code(s): J44.9 - Chronic obstructive pulmonary disease, unspecified (4) UTI (urinary tract infection) Priority: Primary Status: Ruled-out Qualifiers: Urinary tract infection type: acute cystitis Hematuria presence: with hematuria Qualified Code(s): N30.01 - Acute cystitis with hematuria (5) Cellulitis Priority: Primary Status: Resolved Qualifiers: Site of cellulitis: extremity Site of cellulitis of extremity: lower extremity Laterality: right Qualified Code(s): L03.115 - Cellulitis of right lower limb (6) Atrial fibrillation Priority: Secondary Status: Chronic Qualifiers: Atrial fibrillation type: chronic Qualified Code(s): I48.2 - Chronic atrial fibrillation (7) Anemia Priority: Secondary Status: Chronic Qualifiers: Anemia type: due to chronic kidney disease Chronic kidney disease stage: on chronic dialysis Qualified Code(s): N18.6 - End stage renal disease; D63.1 - Anemia in chronic kidney disease; Z99.2 - Dependence on renal dialysis (8) ESRD (end stage renal disease) on dialysis Priority: Secondary Status: Chronic (9) Chronic respiratory failure with hypoxia Priority: Secondary Status: Chronic (10) Congestive heart failure Priority: Secondary Status: Chronic Qualifiers: Heart failure type: diastolic Heart failure chronicity: chronic Qualified Code(s): I50.32 - Chronic diastolic (congestive) heart failure (11) Pressure ulcer of sacral region, stage 3 Priority: Secondary Status: Chronic Hospital course: Ms. Riley is a 63 year old female with multiple medical problems and multiple recurrent hospitalizations, who has been refusing ECF placement, was initially admitted with uncontrolled blood sugars and uncontrolled blood pressure at home. She was started on broad-spectrum IV antibiotics for multidrug-resistant UTI, which were later discontinued as this is more than likely colonization. Insulin was adjusted, blood sugars were subsequently well controlled. Nephrology was consulted, patient underwent regular hemodialysis sessions. Patient was agreeable to ECF placement this time, social work job titles was on board, discharge has been planned when patient was noted to have left arm AV fistula malfunction. She received dialysis through temporary HD catheter, was taken off Plavix for 5 days and underwent a fistulogram, thrombolysis and angioplasty by interventional radiology on 03/23/2018. Due to the TPA used, patient subsequently had significant bleeding and oozing from the AV fistula site and had to be monitored in the ICU overnight. However, hemoglobin remained stable. She was able to undergo hemodialysis through the AV fistula today. Temporary dialysis catheter studies to be removed and patient is otherwise medically stable for transfer to [facility]. She is agreeable to this. Discharge discussed with: patient, nurse, social work, diet consultant - Time Spent with Patient Total time spent providing and/or coordinating discharge services: Greater than 30 minutes (45 min) - Discharge Medications Home Medications: Omeprazole [PriLOSEC] 20 mg PO DAILY 05/11/15 [History] Colestipol HCl [Colestid] 1 gm PO BID 06/12/15 [History] Carvedilol 12.5 mg PO BID 10/28/15 [History] Calcium Acetate [Phos-LO] 1,334 mg PO TIDWM 09/06/16 [History] Folic Acid/Vit Bcomp,C [Renal Vitamin Tablet] 0.8 mg PO DAILY 04/15/17 [History] ARIPiprazole [Abilify] 10 mg PO DAILY 09/13/17 [History] Aspirin Enteric Coated [Aspirin EC] 81 mg PO DAILY 09/13/17 [History] Budesonide/Formoterol 160/4.5 [Symbicort 160/4.5] 2 puff IH BIDR 09/13/17 [ History] Cholecalciferol (Vitamin D3) [Vitamin D3] 50,000 unit PO TH 09/13/17 [History] OxyCODONE/APAP 10/325 [Percocet 10/325 MG] 1 tab PO Q6H PRN 09/13/17 [History] Sennosides [Senna] 8.6 mg PO BID PRN 09/13/17 [History] Sevelamer [Renvela] 800 mg PO TID 09/13/17 [History] Albuterol Neb [AccuNeb] 0.63 mg IH Q6H PRN 10/18/17 [History] Oxybutynin [Ditropan] 5 mg PO TID 11/11/17 [History] Insulin LISPRO [Humalog Kwikpen U-100] 0 unit SQ ACHS 11/25/17 [History] Acetaminophen [Tylenol] 650 mg PO Q6HR PRN tablet 12/14/17 [Rx] amLODIPine [Norvasc] 5 mg PO DAILY 12/30/17 [History] Metoclopramide [Reglan] 5 mg PO TIDAC #15 ud.liq 01/13/18 [Rx] Clopidogrel [Plavix] 75 mg PO DAILY 02/03/18 [History] Collagenase Oint [Santyl] 1 appl TP DAILY #1 tube 02/09/18 [Rx] Saccharomyces Boulardii [Florastor] 250 mg PO BID #20 capsule 02/09/18 [Rx] Rosuvastatin Calcium [Crestor] 20 mg PO DAILY 02/27/18 [History] metOLazone [Zaroxolyn] 2.5 mg PO DAILY 02/27/18 [History] Insulin DETEMIR [Levemir] 10 unit SQ HS #30 [id number] 03/04/18 [Rx] Amitriptyline [Elavil] 50 mg PO HS tablet 03/24/18 [Rx] Gabapentin [Neurontin] 100 mg PO TID 3 Days #10 capsule 03/24/18 [Rx] Morphine Sulfate SR (12 HR) [MS Contin] 30 mg PO Q12HR 3 Days #6 03/24/18 [Rx] Allergies/Adverse Reactions: 3 Allergy/AdvReac Type Severity Reaction Status Date / Time No Known Allergies Allergy Verified 03/10/18 11:36 Date of admission: 03/15/18 00:12 Primary care physician: Tristen Quintana MD Consults: 03/15/18 00:38 Consult to Occupational Therapy [CONS] Routine Comment: Evaluate, develop and implement POC Reason for Consult: Gen weakness Does patient have active BEDREST order?: No Is patient medically & hemodynamically stable?: Yes Consult to Physical Therapy [CONS] Routine Comment: Evaluate, develop and implement POC Reason for Consult: Gen weakness Does patient have active BEDREST order?: No Is patient medically & hemodynamically stable?: Yes Consult to Metal Machine Operator [CONS] Routine Reason for SW Consult: DC planning 03/15/18 02:16 Consult to Wound Care [CONS] Routine Reason for Consult: Stage 3 coccyx ulcer with wound vac Call Completed: No 03/15/18 02:45 Consult to Nephrology [CONS] Routine Consulting Provider: Kidney Olivia/MARCO/SWAPNA/MILLIE Reason for Consult: ESRD on HD Call Completed: No 03/15/18 12:45 Consult to Dialysis [CONS] ONCE 03/15/18 13:49 Consult to Cardiology [CONS] Routine Comment: Consulting Provider: Cardiology Olivia Reason for Consult: Elevated troponin Call Completed: Yes 03/16/18 08:00 Consult to Dialysis [CONS] ONCE 03/18/18 07:45 Consult to Dialysis [CONS] ONCE 03/18/18 10:41 Consult to Interventional Radiology [CONS] Stat Consulting Provider: Radiology Interventional Cols Reason for Consult: exchange cvc for temp dialysis line Call Completed: Yes 03/21/18 06:18 Consult to Interventional Radiology [CONS] Routine Consulting Provider: Radiology Interventional Cols Reason for Consult: Please evaluate her AVG for Shuntogram d/t poor flows/ malfunction Call Completed: No 03/21/18 06:30 Consult to Dialysis [CONS] ONCE 03/21/18 07:30 Consult to Dialysis [CONS] ONCE 03/21/18 08:30 Consult to Dialysis [CONS] ONCE 03/21/18 08:45 Consult to Dialysis [CONS] ONCE 03/23/18 07:15 Consult to Dialysis [CONS] ONCE 03/24/18 08:15 Consult to Dialysis [CONS] ONCE Discharging clinician: Jenifer Duarte Anticipated date of discharge: 03/24/18 - Constitutional Vitals: Temp Pulse Resp BP Pulse Ox 97.5 F L 96 17 125/63 100 03/24/18 13:20 03/24/18 12:00 03/24/18 13:20 03/24/18 13:20 03/24/18 12:00 General appearance: Present: A&O X 2, obese, answers questions appropriately - Cardiovascular Cardiovascular exam: Present: RRR, +S1, +S2. Absent: diastolic murmur, gallop, rubs, systolic murmur - Patient Status Disposition: Transfer SNF Condition: Fair Functional capacity at discharge: uses cane/walker Overall status at discharge: patient is progressing back to baseline - Discharge Instructions Follow Up With: Tristen Quintana MD [Primary Care Provider] - (Going to ECF) Additional Instructions: F/up with PCP in 1-2 weeks F/up with HD 3 times/week- MWF - Diet and Activity Activity: as per physical therapy, wear oxygen at all times Diet: diabetic diet, low fat, low cholesterol, low salt diet, other (renal diet)
--- NOTE | 2018-03-24 15:24 | Physician Discharge Referral ---
ExtendedCare Referral Info Transfer To: [facility] Provider in Charge: Jenifer Duarte Provider in Charge after Transfer: PCP Institutional Level of Care: Skilled - Diagnosis (1) Dialysis AV fistula malfunction Priority: Primary Status: Acute (2) DMII (diabetes mellitus, type 2) Priority: Secondary Status: Chronic (3) COPD (chronic obstructive pulmonary disease) Priority: Secondary Status: Chronic (4) UTI (urinary tract infection) Priority: Primary Status: Ruled-out (5) Cellulitis Priority: Primary Status: Resolved (6) Atrial fibrillation Priority: Secondary Status: Chronic (7) Anemia Priority: Secondary Status: Chronic (8) ESRD (end stage renal disease) on dialysis Priority: Secondary Status: Chronic (9) Chronic respiratory failure with hypoxia Priority: Secondary Status: Chronic (10) Congestive heart failure Priority: Secondary Status: Chronic (11) Pressure ulcer of sacral region, stage 3 Priority: Secondary Status: Chronic Expected Duration of Placement: 3 weeks Prognosis: Fair Aware of Diagnosis: Patient Aware of Prognosis: Patient - Transfer Medications Home Medications: Omeprazole [PriLOSEC] 20 mg PO DAILY 05/11/15 [History] Colestipol HCl [Colestid] 1 gm PO BID 06/12/15 [History] Carvedilol 12.5 mg PO BID 10/28/15 [History] Calcium Acetate [Phos-LO] 1,334 mg PO TIDWM 09/06/16 [History] Folic Acid/Vit Bcomp,C [Renal Vitamin Tablet] 0.8 mg PO DAILY 04/15/17 [History] ARIPiprazole [Abilify] 10 mg PO DAILY 09/13/17 [History] Aspirin Enteric Coated [Aspirin EC] 81 mg PO DAILY 09/13/17 [History] Budesonide/Formoterol 160/4.5 [Symbicort 160/4.5] 2 puff IH BIDR 09/13/17 [ History] Cholecalciferol (Vitamin D3) [Vitamin D3] 50,000 unit PO TH 09/13/17 [History] OxyCODONE/APAP 10/325 [Percocet 10/325 MG] 1 tab PO Q6H PRN 09/13/17 [History] Sennosides [Senna] 8.6 mg PO BID PRN 09/13/17 [History] Sevelamer [Renvela] 800 mg PO TID 09/13/17 [History] Albuterol Neb [AccuNeb] 0.63 mg IH Q6H PRN 10/18/17 [History] Oxybutynin [Ditropan] 5 mg PO TID 11/11/17 [History] Insulin LISPRO [Humalog Kwikpen U-100] 0 unit SQ ACHS 11/25/17 [History] Acetaminophen [Tylenol] 650 mg PO Q6HR PRN tablet 12/14/17 [Rx] amLODIPine [Norvasc] 5 mg PO DAILY 12/30/17 [History] Metoclopramide [Reglan] 5 mg PO TIDAC #15 ud.liq 01/13/18 [Rx] Clopidogrel [Plavix] 75 mg PO DAILY 02/03/18 [History] Collagenase Oint [Santyl] 1 appl TP DAILY #1 tube 02/09/18 [Rx] Saccharomyces Boulardii [Florastor] 250 mg PO BID #20 capsule 02/09/18 [Rx] Rosuvastatin Calcium [Crestor] 20 mg PO DAILY 02/27/18 [History] metOLazone [Zaroxolyn] 2.5 mg PO DAILY 02/27/18 [History] Insulin DETEMIR [Levemir] 10 unit SQ HS #30 [id number] 03/04/18 [Rx] Amitriptyline [Elavil] 50 mg PO HS tablet 03/24/18 [Rx] Gabapentin [Neurontin] 100 mg PO TID 3 Days #10 capsule 03/24/18 [Rx] Morphine Sulfate SR (12 HR) [MS Contin] 30 mg PO Q12HR 3 Days #6 03/24/18 [Rx] Allergies/Adverse Reactions: 3 Allergy/AdvReac Type Severity Reaction Status Date / Time No Known Allergies Allergy Verified 03/10/18 11:36 - Respiratory Orders Oxygen / L per min (2-3L/min via NC) Smoking Cessation: Smoking cessation has been advised. For more information, call the [place] Tobacco Quit Line at 1-056-BCPR-NOW. - Advance Directives Code Status: Full Code - Mobility Orders Ambulate - Rehabiliation Orders Rehab Potential: Fair Rehab Orders: ROM Exercises, Evaluation for Physical Therapy, Evaluation for Occupational Therapy - Diet Orders No Concentrated Sweets (diabetic), Renal, Cardiac CERTIFICATION: I certify that the transfer of the above named patient to an Extended Care Facility is necessary for the continuing treatment of the diagnosis listed. The above information is true and accurate reflection of patient's current condition. Confidential - Redisclosure prohibited without a patient's written consent.
== END 2018-03-24 16:30 ==
LOC: EMEROO 19:56 → 2ANU 19:56 → SUATTDRO 03-15 00:12 → 2ANU 03-15 01:06 → ICNU 03-23 16:46
PROVIDERS: ADMIT Internal Medicine; ATTEND Internal Medicine

== ENCOUNTER 2018-03-28 11:04 | Observation (INO) ==
[2018-03-28] MEDS ORDERED: Acetaminophen 325 MG TABLET PO ONE (11:09)
--- NOTE | 2018-03-28 11:12 | Emergency Department Note ---
Disposition Clinical Impression: Pelvic fracture Disposition: Admitted As Inpatient Condition: Good General Adult HPI - General Stated complaint: left hip pain Time Seen by Provider: 03/28/18 11:05 Nursing Notes Reviewed: Yes Vital Signs Reviewed: Yes - Related Data Home Medications Medication Instructions Recorded Confirmed Omeprazole [PriLOSEC] 20 mg PO DAILY 05/11/15 03/28/18 Colestipol HCl [Colestid] 1 gm PO BID 06/12/15 03/28/18 Carvedilol 12.5 mg PO BID 10/28/15 03/28/18 Calcium Acetate [Phos-LO] 1,334 mg PO TIDWM 09/06/16 03/28/18 Folic Acid/Vit Bcomp,C [Renal 0.8 mg PO DAILY 04/15/17 03/28/18 Vitamin Tablet] ARIPiprazole [Abilify] 10 mg PO DAILY 09/13/17 03/28/18 Aspirin Enteric Coated [Aspirin EC] 81 mg PO DAILY 09/13/17 03/28/18 Budesonide/Formoterol 160/4.5 2 puff IH BIDR 09/13/17 03/28/18 [Symbicort 160/4.5] Cholecalciferol (Vitamin D3) 50,000 unit PO TH 09/13/17 03/28/18 [Vitamin D3] OxyCODONE/APAP 10/325 [Percocet 1 tab PO Q6H PRN 09/13/17 03/28/18 10/325 MG] Sennosides [Senna] 8.6 mg PO BID PRN 09/13/17 03/28/18 Sevelamer [Renvela] 800 mg PO TID 09/13/17 03/28/18 Albuterol Neb [AccuNeb] 0.63 mg IH Q6H PRN 10/18/17 03/28/18 Oxybutynin [Ditropan] 5 mg PO TID 11/11/17 03/28/18 Insulin LISPRO [Humalog Kwikpen 0 unit SQ ACHS 11/25/17 03/28/18 U-100] amLODIPine [Norvasc] 5 mg PO DAILY 12/30/17 03/28/18 Clopidogrel [Plavix] 75 mg PO DAILY 02/03/18 03/28/18 Rosuvastatin Calcium [Crestor] 20 mg PO DAILY 02/27/18 03/28/18 metOLazone [Zaroxolyn] 2.5 mg PO DAILY 02/27/18 03/28/18 Previous Rx's Medication Instructions Recorded Acetaminophen [Tylenol] 650 mg PO Q6HR PRN tablet 12/14/17 Metoclopramide [Reglan] 5 mg PO TIDAC #15 ud.liq 01/13/18 Collagenase Oint [Santyl] 1 appl TP DAILY #1 tube 02/09/18 Saccharomyces Boulardii [Florastor] 250 mg PO BID #20 capsule 02/09/18 Insulin DETEMIR [Levemir] 10 unit SQ HS #30 [id number] 03/04/18 Amitriptyline [Elavil] 50 mg PO HS tablet 03/24/18 Gabapentin [Neurontin] 100 mg PO TID 3 Days #10 capsule 03/24/18 Morphine Sulfate SR (12 HR) [MS 30 mg PO Q12HR 3 Days #6 03/24/18 Contin] Allergies Allergy/AdvReac Type Severity Reaction Status Date / Time No Known Allergies Allergy Verified 03/28/18 13:51 Past Medical History - Past Medical History Medical history: Reports: CHF, COPD, diabetes, myocardial infarction Surgical history: Reports: angioplasty/stent, appendectomy, cholecystectomy, coronary bypass (CABG), hysterectomy, knee replacement, other, IVC filter Psychiatric history: Reports: anxiety, depression, schizophrenia, previous psychiatric hospitalization 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 - Social History Smoking Status: Current every day smoker Smokeless Tobacco Status: No Alcohol use: Reports: none Drug use: Reports: none Course Vital Signs Temperature 98.2 F 03/28/18 11:08 Pulse Rate 91 03/28/18 11:08 Respiratory Rate 20 03/28/18 11:08 Blood Pressure 116/62 03/28/18 11:08 O2 Sat by Pulse Oximetry 97 03/28/18 11:08 Temperature 97.5 F L 03/28/18 16:50 Pulse Rate 90 03/28/18 15:46 Respiratory Rate 18 03/28/18 16:50 Blood Pressure 127/62 03/28/18 16:50 O2 Sat by Pulse Oximetry 100 03/28/18 15:46 Oxygen Delivery Oxygen Delivery Room Air Medical Decision Making - [facility] Narrative Medical decision making narrative: 1320 hrs.: Spoke to Dr. Rivers she said since her an outpatient facility they had only have chairs that on any beds so the patient needs a bed for dialysis she Be admitted not for patient wants to do. I get labs look good except for chronic renal failure. We will speak with hospitalist and orthopedics regarding her care and see if they will consult with her as well as nephrology. She is in agreement with this plan. Impressions pelvic fracture possibly nonoperable chronic renal disease with need for dialysis. - Lab Data Result diagrams: 03/28/18 12:40 03/28/18 12:40 Lab Results 03/28/18 03/28/18 Range/Units 12:40 12:40 WBC 11.8 H (4.3-11.1) K/mcL RBC 3.41 L (3.82-4.97) M/mcL Hgb 9.1 L (11.5-15.4) g/dL Hct 29.3 L (35.3-44.9) % MCV 85.9 (83.0-100.0) fL MCH 26.7 L (28.0-33.3) pg MCHC 31.1 L (31.6-35.5) g/dL RDW 15.9 H (11.5-14.5) % Plt Count 211 (140-400) K/mcL MPV 11.1 (9.4-12.4) fL Immature Gran % 0.8 (0-4) % Seg Neutrophils % 78.8 % Lymphocytes % 12.4 % Monocytes % 6.6 % Eosinophils % 0.8 % Basophils % 0.6 % Neutrophils # 9.3 H (1.6-8.9) K/mcL Lymphocytes # 1.5 (0.6-4.6) K/mcL Monocytes # 0.8 (0.0-1.3) K/mcL Eosinophils # 0.1 (0.0-0.6) K/mcL Basophils # 0.1 (0.0-0.2) K/mcL Sodium 125 L (136-145) mEq/L Potassium 4.4 (3.5-5.1) mEq/L Chloride 90 L (98-107) mEq/L Carbon Dioxide 25 (23-29) mEq/L BUN 40 H (8-23) mg/dL Creatinine 4.62 H (0.60-1.20) mg/dL Est GFR ( Amer) 12 L (> 60) Est GFR (Non-Af Amer) 10 L (> 60) BUN/Creatinine Ratio 9 (6-26) Glucose 344 H (70-105) mg/dL Calculated Osmolality 283 (280-300) Calcium 8.8 (8.6-10.3) mg/dL Attestation Statement - Attestation Attestation: This documentation is done with the assistance of Dragon dictation. Despite efforts made to ensure accuracy, there may be inaccuracies in photoengraver or spelling and typographical errors. I examined this patient and my medical decision-making was reviewed with the Resident Physician. I agree with the documented findings, disposition and treatment plan as described except to the extent set forth below. Patient seen and evaluated on arrival with EMS and Dr. Antony, I agree with her evaluation and management plan, supervise care the patient's stay. Patient's complain of left hip and shoulder pain. She had gotten up on Wednesday out of bed when to move to her wheelchair and fell landing on her left hip and shoulder. They picked her back That she is in the nursing facility did not strike her head and denies any other trauma. Went to dialysis December told the dialysis nurse so they can do dialysis center over here for evaluation. She has a tenderness on the left shoulder and left hip no obvious deformity will x-rayed these areas give her something for pain and reassessed.
--- NOTE | 2018-03-28 11:17 | Emergency Department Note ---
Disposition Clinical Impression: Pelvic fracture Qualifiers: Encounter type: initial encounter Pelvic bone location: ischium Fracture type: closed Fracture morphology: unspecified fracture morphology Fracture alignment: nondisplaced Laterality: left Qualified Code(s): S32.602A - Unspecified fracture of left ischium, initial encounter for closed fracture Disposition: Admitted As Inpatient Condition: Good Time of Disposition: 14:07 General Adult HPI - General Stated complaint: left hip pain Time Seen by Provider: 03/28/18 11:05 Source: EMS Limitations: no limitations Nursing Notes Reviewed: Yes Vital Signs Reviewed: Yes - History of Present Illness HPI Narrative: Ground-level fall 4 days ago. Complaining of left hip pain ever since. Also left shoulder pain. Not able to walk due to pain. Had to be assisted off the floor with a Nolan lift. Pain Scale: 9 - Related Data Home Medications Medication Instructions Recorded Confirmed Omeprazole [PriLOSEC] 20 mg PO DAILY 05/11/15 03/15/18 Colestipol HCl [Colestid] 1 gm PO BID 06/12/15 03/15/18 Carvedilol 12.5 mg PO BID 10/28/15 03/15/18 Calcium Acetate [Phos-LO] 1,334 mg PO TIDWM 09/06/16 03/15/18 Folic Acid/Vit Bcomp,C [Renal 0.8 mg PO DAILY 04/15/17 03/15/18 Vitamin Tablet] ARIPiprazole [Abilify] 10 mg PO DAILY 09/13/17 03/15/18 Aspirin Enteric Coated [Aspirin EC] 81 mg PO DAILY 09/13/17 03/15/18 Budesonide/Formoterol 160/4.5 2 puff IH BIDR 09/13/17 03/15/18 [Symbicort 160/4.5] Cholecalciferol (Vitamin D3) 50,000 unit PO TH 09/13/17 03/15/18 [Vitamin D3] OxyCODONE/APAP 10/325 [Percocet 1 tab PO Q6H PRN 09/13/17 03/15/18 10/325 MG] Sennosides [Senna] 8.6 mg PO BID PRN 09/13/17 03/15/18 Sevelamer [Renvela] 800 mg PO TID 09/13/17 03/15/18 Albuterol Neb [AccuNeb] 0.63 mg IH Q6H PRN 10/18/17 03/15/18 Oxybutynin [Ditropan] 5 mg PO TID 11/11/17 03/15/18 Insulin LISPRO [Humalog Kwikpen 0 unit SQ ACHS 11/25/17 03/15/18 U-100] amLODIPine [Norvasc] 5 mg PO DAILY 12/30/17 03/15/18 Clopidogrel [Plavix] 75 mg PO DAILY 02/03/18 03/15/18 Rosuvastatin Calcium [Crestor] 20 mg PO DAILY 02/27/18 03/15/18 metOLazone [Zaroxolyn] 2.5 mg PO DAILY 02/27/18 03/15/18 Previous Rx's Medication Instructions Recorded Acetaminophen [Tylenol] 650 mg PO Q6HR PRN tablet 12/14/17 Metoclopramide [Reglan] 5 mg PO TIDAC #15 ud.liq 01/13/18 Collagenase Oint [Santyl] 1 appl TP DAILY #1 tube 02/09/18 Saccharomyces Boulardii [Florastor] 250 mg PO BID #20 capsule 02/09/18 Insulin DETEMIR [Levemir] 10 unit SQ HS #30 [id number] 03/04/18 Amitriptyline [Elavil] 50 mg PO HS tablet 03/24/18 Gabapentin [Neurontin] 100 mg PO TID 3 Days #10 capsule 03/24/18 Morphine Sulfate SR (12 HR) [MS 30 mg PO Q12HR 3 Days #6 03/24/18 Contin] Allergies Allergy/AdvReac Type Severity Reaction Status Date / Time No Known Allergies Allergy Verified 03/28/18 13:51 All systems ED: reviewed and negative except as stated. Constitutional: Denies: fever, chills Cardiovascular: Denies: chest pain, palpitations, syncope Respiratory: Denies: cough, dyspnea Gastrointestinal: Denies: abdominal pain, nausea, vomiting, diarrhea, hematemesis, melena, hematochezia Musculoskeletal: Reports: other (Left hip and left shoulder pain) Past Medical History - Past Medical History Attestation: Yes The following information was validated with the patient. Source: patient Medical history: Reports: CHF, COPD, diabetes, myocardial infarction Surgical history: Reports: angioplasty/stent, appendectomy, cholecystectomy, coronary bypass (CABG), hysterectomy, knee replacement, other, IVC filter Psychiatric history: Reports: anxiety, depression, schizophrenia, previous psychiatric hospitalization [employer] history: Reports: other - Social History Smoking Status: Current every day smoker Smokeless Tobacco Status: No Alcohol use: Reports: none Drug use: Reports: none Physical Exam - General Limitations: no limitations General appearance: alert, in no apparent distress - Head Head exam: atraumatic, normocephalic, normal inspection - Eye Eye exam: Present: normal appearance, PERRL, EOMI - ENT ENT exam: normal exam, normal oropharynx, mucous membranes moist - Neck Neck exam: Present: normal inspection, full ROM, trachea midline - Chest Chest inspection: Present: normal inspection, symmetric chest wall rise - Respiratory Respiratory exam: Present: other (Rhonchi in bilateral lower lobes). Absent: respiratory distress, accessory muscle use - Cardiovascular Cardiovascular exam: Present: regular rate, normal rhythm, normal heart sounds - Abdominal Exam Abdominal exam: Present: soft, Non-Tender. Absent: distention, guarding, rigidity, organomegaly - Expanded Upper Extremity Exam Shoulder exam: Present: normal inspection, full ROM, other (Pain to left shoulder. No pain on palpation. Full range of motion.) Arm exam: Present: normal inspection, full ROM Elbow exam: Present: normal inspection, full ROM Forearm/Wrist exam: Present: normal inspection, full ROM Hand exam: Present: normal inspection, full ROM Vascular exam: Normal: capillary refill, radial pulse - Expanded Lower Extremity Exam Hip/Pelvis exam: Present: full ROM (Of right hip), other (To palpation of left hip. Patient will not move due to pain.) Upper leg exam: Present: normal inspection. Absent: tenderness, swelling Knee exam: Present: normal inspection, full ROM ( right), other (Patient we will not let me flex or extend left knee due to left hip pain) Lower leg exam: Present: swelling (Pitting edema bilaterally) Ankle exam: Present: other (Pitting edema bilaterally chronic skin changes.) Foot/toe exam: Present: other (Chronic skin changes. Pitting bilaterally) - Neurological Exam Neurological exam: Present: alert, oriented X3 - Psychiatric Psychiatric exam: Present: normal affect, normal mood - Skin Skin exam: Present: warm, dry, intact. Absent: rash, cyanosis, diaphoresis, erythema Course Course Narrative: Female patient with history of chronic kidney disease who is on dialysis Wednesday and Wednesday process emergency department complaining of left hip pain. She states she fell 4 days ago. She has had hip pain ever since. She has been unable to ambulate without assistance since. She does live at a long term and states that he is aware of lift get her off the floor. The complaining of right shoulder pain. She went to dialysis today and went to transfer to the cot but states that she had too much pain and now she is in the emergency department to get evaluated for this. She denies any loss of consciousness on Wednesday during the fall or after the fall. She is mentating appropriately this time. I do not appreciate any gross deformity to her body. She does have left hip pain on palpation and will not let me move her left leg due to pain. However she is laying on her left side. She has full range of motion of both upper extremities. She has chronic skin changes to her lower extremities. With some pitting edema bilaterally. We will image patient's left hip and left shoulder. We will also provide her with pain medication. - Reevaluation(s) Reevaluation #1: Patient reassessed. She is asleep in bed. She is easily aroused and states that the Tylenol to care of her pain. She states that he is not in pain currently. She does have a pubic rami fracture. We will talk to Dr. Rivers and discuss whether the patient can do dialysis at the dialysis center with the pelvic fracture. Time: 12:12 Reevaluation #2: We will admit patient to the hospital for her pelvic fracture and further evaluation. It appears that they do not have beds at dialysis center. - Consultations Consultation #1: I spoke with Dr Canchola. He is requesting a CT of the Pt pelvis. WE will order this. Time: 13:30 Consultation #2: Dr Robledo accepted Pt in stable condition. Time: 13:54 Vital Signs Temperature 98.2 F 03/28/18 11:08 Pulse Rate 91 03/28/18 11:08 Respiratory Rate 20 03/28/18 11:08 Blood Pressure 116/62 03/28/18 11:08 O2 Sat by Pulse Oximetry 97 03/28/18 11:08 Temperature 98.2 F 03/28/18 11:08 Pulse Rate 86 03/28/18 13:02 Respiratory Rate 18 03/28/18 13:02 Blood Pressure 119/54 03/28/18 13:02 O2 Sat by Pulse Oximetry 95 03/28/18 13:02 Oxygen Delivery Oxygen Delivery Room Air Medical Decision Making - Medical Records Medical records reviewed: Yes I reviewed the patient's medical records. - Lab Data Lab results reviewed: Yes I reviewed the patient's lab results. Result diagrams: 03/28/18 12:40 03/28/18 12:40 Lab Results 03/28/18 03/28/18 Range/Units 12:40 12:40 WBC 11.8 H (4.3-11.1) K/mcL RBC 3.41 L (3.82-4.97) M/mcL Hgb 9.1 L (11.5-15.4) g/dL Hct 29.3 L (35.3-44.9) % MCV 85.9 (83.0-100.0) fL MCH 26.7 L (28.0-33.3) pg MCHC 31.1 L (31.6-35.5) g/dL RDW 15.9 H (11.5-14.5) % Plt Count 211 (140-400) K/mcL MPV 11.1 (9.4-12.4) fL Immature Gran % 0.8 (0-4) % Seg Neutrophils % 78.8 % Lymphocytes % 12.4 % Monocytes % 6.6 % Eosinophils % 0.8 % Basophils % 0.6 % Neutrophils # 9.3 H (1.6-8.9) K/mcL Lymphocytes # 1.5 (0.6-4.6) K/mcL Monocytes # 0.8 (0.0-1.3) K/mcL Eosinophils # 0.1 (0.0-0.6) K/mcL Basophils # 0.1 (0.0-0.2) K/mcL Sodium 125 L (136-145) mEq/L Potassium 4.4 (3.5-5.1) mEq/L Chloride 90 L (98-107) mEq/L Carbon Dioxide 25 (23-29) mEq/L BUN 40 H (8-23) mg/dL Creatinine 4.62 H (0.60-1.20) mg/dL Est GFR ( Amer) 12 L (> 60) Est GFR (Non-Af Amer) 10 L (> 60) BUN/Creatinine Ratio 9 (6-26) Glucose 344 H (70-105) mg/dL Calculated Osmolality 283 (280-300) Calcium 8.8 (8.6-10.3) mg/dL - Radiology Data Radiology results reviewed: Yes I reviewed the patient's radiology results. Hip X-Ray 03/28/18 11:09 IMPRESSION: Minimally displaced left superior pubic ramus fracture and probable right inferior pubic ramus fracture. D/ / Tod Tolentino / Tod Tolentino Interpreting Provider: Tod Tolentino Shoulder X-Ray 03/28/18 11:09 IMPRESSION: Degenerative change in the shoulder without acute osseous abnormality or malalignment. D/ / Tod Tolentino / Tod Tolentino Interpreting Provider: Tod Tolentino Pelvis CT 03/28/18 13:21 IMPRESSION: Oblique nondisplaced fracture of the left superior pubic ramus is confirmed. Old healed fracture in the left inferior pubic ramus is noted. No femur fracture identified. Moderate stool burden with rectal distention. Left double-J ureteral stent terminates in the bladder. D/ / Tod Tolentino / Tod Tolentino Interpreting Provider: Tod Tolentino
[2018-03-28 13:08] LABS: Calcium 8.8 mg/dL (8.6-10.3); Potassium 4.4 mEq/L (3.5-5.1)
[2018-03-28 13:09] LABS: Basophils # 0.1 K/mcL (0.0-0.2); Basophils % 0.6 %; Eosinophils # 0.1 K/mcL (0.0-0.6); Eosinophils % 0.8 %; Hematocrit 29.3 % (35.3-44.9); Hemoglobin 9.1 g/dL (11.5-15.4); Immature Granulocytes % 0.8 % (0-4); Lymphocytes # 1.5 K/mcL (0.6-4.6); Lymphocytes % 12.4 %; Mean Corpuscular HGB Conc 31.1 g/dL (31.6-35.5); Mean Corpuscular Hemoglobin 26.7 pg (28.0-33.3); Mean Corpuscular Volume 85.9 fL (83.0-100.0); Mean Platelet Volume 11.1 fL (9.4-12.4); Monocytes # 0.8 K/mcL (0.0-1.3); Monocytes % 6.6 %; Neutrophils # 9.3 K/mcL (1.6-8.9); Platelet Count 211 K/mcL (140-400); Red Blood Count 3.41 M/mcL (3.82-4.97); Red Cell Distribution Width 15.9 % (11.5-14.5); Segmented Neutrophils % 78.8 %
[2018-03-28] MEDS ORDERED: Naloxone 0.4 MG/ML INJ IVP PRN (14:51)
--- NOTE | 2018-03-28 14:59 | Internal Med History&Physical ---
<Amy Escobar O - Last Filed: 03/28/18 22:08> Date of Encounter: 03/28/18 Internal Medicine - H&P: HPI History of present illness: Ms. Riley is a 63 year old female Internal Medicine - H&P: Meds Omeprazole [PriLOSEC] 20 mg PO DAILY 05/11/15 [History] Colestipol HCl [Colestid] 1 gm PO BID 06/12/15 [History] Carvedilol 12.5 mg PO BID 10/28/15 [History] Calcium Acetate [Phos-LO] 1,334 mg PO TIDWM 09/06/16 [History] Folic Acid/Vit Bcomp,C [Renal Vitamin Tablet] 0.8 mg PO DAILY 04/15/17 [History] ARIPiprazole [Abilify] 10 mg PO DAILY 09/13/17 [History] Aspirin Enteric Coated [Aspirin EC] 81 mg PO DAILY 09/13/17 [History] Budesonide/Formoterol 160/4.5 [Symbicort 160/4.5] 2 puff IH BIDR 09/13/17 [ History] Cholecalciferol (Vitamin D3) [Vitamin D3] 50,000 unit PO TH 09/13/17 [History] OxyCODONE/APAP 10/325 [Percocet 10/325 MG] 1 tab PO Q6H PRN 09/13/17 [History] Sennosides [Senna] 8.6 mg PO BID PRN 09/13/17 [History] Sevelamer [Renvela] 800 mg PO TID 09/13/17 [History] Albuterol Neb [AccuNeb] 0.63 mg IH Q6H PRN 10/18/17 [History] Oxybutynin [Ditropan] 5 mg PO TID 11/11/17 [History] Insulin LISPRO [Humalog Kwikpen U-100] 0 unit SQ ACHS 11/25/17 [History] Acetaminophen [Tylenol] 650 mg PO Q6HR PRN tablet 12/14/17 [Rx] amLODIPine [Norvasc] 5 mg PO DAILY 12/30/17 [History] Metoclopramide [Reglan] 5 mg PO TIDAC #15 ud.liq 01/13/18 [Rx] Clopidogrel [Plavix] 75 mg PO DAILY 02/03/18 [History] Collagenase Oint [Santyl] 1 appl TP DAILY #1 tube 02/09/18 [Rx] Saccharomyces Boulardii [Florastor] 250 mg PO BID #20 capsule 02/09/18 [Rx] Rosuvastatin Calcium [Crestor] 20 mg PO DAILY 02/27/18 [History] metOLazone [Zaroxolyn] 2.5 mg PO DAILY 02/27/18 [History] Insulin DETEMIR [Levemir] 10 unit SQ HS #30 [id number] 03/04/18 [Rx] Amitriptyline [Elavil] 50 mg PO HS tablet 03/24/18 [Rx] Gabapentin [Neurontin] 100 mg PO TID 3 Days #10 capsule 03/24/18 [Rx] Morphine Sulfate SR (12 HR) [MS Contin] 30 mg PO Q12HR 3 Days #6 03/24/18 [Rx] 3 Allergy/AdvReac Type Severity Reaction Status Date / Time No Known Allergies Allergy Verified 03/28/18 13:51 All Systems PM: A 10-system review of systems was performed and is negative for pertinent findings except as documented above in the HPI. - Constitutional Vitals: Temp Pulse Resp BP Pulse Ox 97.6 F 90 19 150/58 100 03/28/18 20:35 03/28/18 15:46 03/28/18 20:35 03/28/18 20:35 03/28/18 15:46 General appearance: Present: A&O X 3, obese - Head Head exam: Present: atraumatic, normocephalic - Eye Eye exam: Present: PERRL, conjuntiva pink, sclera anicteric Pupils: Present: PERRL - Neck Neck exam general surgery: Present: supple, trachea midline. Absent: lymphadenopathy - Respiratory Respiratory exam: Present: rhonchi. Absent: accessory muscle use, CTAB, rales, wheezes Additional comments: coarse rhonchi - Cardiovascular Cardiovascular exam: Present: RRR, +S1, +S2. Absent: diastolic murmur, gallop, rubs, systolic murmur - GI/Abdominal GI/Abdominal exam: Present: normal bowel sounds, soft, no peritoneal signs. Absent: distended, tenderness - Extremities Exam Extremities exam: Present: pedal edema, warm, radial pulses palpable and symmetrical. Absent: calf tenderness, cyanotic - Neurological Exam Neurological exam: Present: CN II-XII intact, oriented X3, no focal deficits. Absent: pronater drift, facial droop, speech deficit - Skin Skin exam: Present: dry, intact Internal Med - H&P Results - Labs CBC & Chem 7: 03/28/18 12:40 03/28/18 12:40 - Attending Attestation I performed a history and physical exam of the patient and discussed her management with the SUSTAINABILITY COMMUNICATORAntonia. I reviewed the SUSTAINABILITY COMMUNICATOR's note and agree with the documented findings and plan of care, except for addendum mentioned below. Addendum 1. Pelvic fracture. Pt's hip x ray showing B/L pubic rami fracture. Orthopedic consulted and will probably not pursue surgery. Will write for prn pain control. Hip x ray IMPRESSION: Minimally displaced left superior pubic ramus fracture and probable right inferior pubic ramus fracture. 2. Leukocytosis. Pt has hx recurrent UTI. Pt reports dysuria. She states she still makes urine. Will straight cath and send urine for analysis with reflex to culture. Pt has hx of VRE, hence reason for isolation precautions. 3. Nausea and vomiting. Zofran prn. 4. ESRD-HD. Dr. Rivers consulted and she is already had HD today. Pt has hx non-compliance with HD. She missed her dialysis today. 5. Diabetes type II. Will resume insulin. 6. Hyponatremia. Will recheck BMP post HD and in am. 7. COPD not in exacerbation. Will resume home resp regimen. CODE SATUS: DNRCC - Time Spent With Patient Total time spent is greater than 50% in coordination of care (as documented) at patient's floor/unit and/or counseling patient: <Antonia Ramirez R - Last Filed: 03/28/18 22:34> Date of Encounter: 03/28/18 Time of Encounter: 14:57 Internal Medicine - H&P: HPI Chief complaint: Left pubic ramus fracture Admitted From: Long-term Nursing Facility Plans for Post Hospital Care: [facility] History of present illness: Ms. Riley is a 63 year old female who presents with history OF hf, dm, CAD, ESRD , IVC filter, [place], schizophrenia, anxiety and depression. The patient is from a f[facility] and indicated that she got up and walked to her w/c to move it and lost her balance and fell, landing on her left hip and shoulder. The patient told someone about the fall today and she told someone about the fall. She was scheduled for HD today and did miss that appointment. The patient typically see's Dr. Rivers at [facility]. I consulted nephrology, and will see the patient. HD is planned for today. The patient was found to have a left superior pubic delacruz fx, and probable inf pubic inf fracture by hip xray in the ED. CT confirmed this fracture. Ortho was consulted in the ED and will see the patient. Apparently the patient has a left double J ureteral stent. Na is 125, I spoke with Dr. Rivers and she advised to not implement any IVF's at this time, feels HD will correct the patient. Creatinine is 4.6, bun is 40. Lungs have coarse rhonchi, will continue home bronchodilators. Past Med Surg Social Fam HX - Past Medical History Medical history: CHF, COPD, diabetes, myocardial infarction Additional medical history: no defecits from previous CVA Psychiatric history: anxiety, depression, schizophrenia, previous psychiatric hospitalization - Past Surgical History Surgical History: angioplasty/stent, appendectomy, cholecystectomy, coronary bypass (CABG), hysterectomy, knee replacement, other, IVC filter Additional surgical history: CABG 2002,BILAT KNEE REPLACEMENTS,TONSILLECTOMY,3- 4 CARDIAC STENTS, ORIF RT ARM - Social History Smoking Status: Current every day smoker Smokeless Tobacco Status: No Alcohol use: none Drug use: none - Family History Father Family Member Ethnicity: Non- Living Status: Hx Family Cardiac Disorders: Yes Hx Family Respiratory Disorders: Yes Hx Family Cancer: Yes (Polycythemia) Hx Family Endocrine Disorder: Yes (DM) Mother Family Member Ethnicity: Non- Living Status: Still Living Hx Family Cardiac Disorders: Yes Hx Family Respiratory Disorders: Yes (asthma, COPD) Brother Adopted: No Family Member Ethnicity: Non- Living Status: Still Living Hx Family Cardiac Disorders: No Hx Family Respiratory Disorders: No Hx Family Cancer: No Hx Family GI Disorders: No Hx Family Endocrine Disorder: No Hx Family Neuromuscular Disorders: No Hx Family Neurologic Disorders: No Hx Family HEENT Disorders: No Hx Family Autoimmune Disorders: No Sister Adopted: No Family Member Ethnicity: Non- Living Status: Still Living Hx Family Cardiac Disorders: Yes Hx Family Respiratory Disorders: No Hx Family Cancer: No Hx Family GI Disorders: No Hx Family Endocrine Disorder: Yes Hx Family Neuromuscular Disorders: No Hx Family Neurologic Disorders: No Hx Family HEENT Disorders: No Hx Family Autoimmune Disorders: No All Systems PM: A 10-system review of systems was performed and is negative for pertinent findings except as documented above in the HPI. - Constitutional Constitutional: no chills, no fever(s), no night sweats - EENT Eyes: no change in vision, no discharge, no pain, no photophobia Ears: no ear discharge, no ear pain, no tinnitus Nose, mouth and throat: no dysphagia, no nasal discharge, no neck pain, no sore throat - Cardiovascular Cardiovascular ROS IM: no chest pain, no diaphoresis, no dyspnea, no lightheadedness, no palpitations, no syncope - Respiratory Respiratory: cough, wheezing, chest congestion, no dyspnea, no excessive phlegm production - Gastrointestinal Gastrointestinal: no abdominal pain, no diarrhea, no hematemesis, no hematochezia, no melena, no nausea, no vomiting - Genitourinary Genitourinary: no change in urinary stream, no dysuria, no flank pain, no hematuria - Musculoskeletal Musculoskeletal ROS IM: other (left superior pubic ramus fracture), no numbness , no tingling - Integumentary Integumentary IM: no rash, no unusual bruising - Neurological Neurological ROS: frequent falls, no confusion, no convulsions, no focal weakness, no numbness, no tingling, no tremor(s) - Hematologic/Lymphatic Hematologic/Lymphatic: no easy bruising - Constitutional Vitals: Temp Pulse Resp BP Pulse Ox 98.2 F 86 18 107/47 95 03/28/18 11:08 03/28/18 13:02 03/28/18 14:13 03/28/18 14:13 03/28/18 13:02 General appearance: Present: A&O X 3, answers questions appropriately - Head Head exam: Present: atraumatic, normocephalic - Eye Eye exam: Present: PERRL, conjuntiva pink, sclera anicteric Pupils: Present: PERRL - Neck Neck exam general surgery: Present: supple, trachea midline. Absent: lymphadenopathy - Respiratory Respiratory exam: Present: rhonchi, wheezes. Absent: accessory muscle use, rales - Cardiovascular Cardiovascular exam: Present: RRR, +S1, +S2. Absent: diastolic murmur, gallop, rubs, systolic murmur - GI/Abdominal GI/Abdominal exam: Present: normal bowel sounds, soft, no peritoneal signs. Absent: distended, tenderness - Extremities Exam Extremities exam: Present: warm, radial pulses palpable and symmetrical. Absent : calf tenderness, cyanotic, full ROM, pedal edema - Neurological Exam Neurological exam: Present: CN II-XII intact, oriented X3, no focal deficits. Absent: pronater drift, facial droop, speech deficit - Skin Skin exam: Present: dry, intact Internal Med - H&P Results - Labs CBC & Chem 7: 03/28/18 12:40 03/28/18 12:40 - Assessment and plan (1) Pelvic fracture Current Visit: Yes Status: Acute Assessment and plan: Ortho consulted for pelvic fx. Qualifiers: Encounter type: initial encounter Pelvic bone location: ischium Fracture type: closed Fracture morphology: unspecified fracture morphology Fracture alignment: nondisplaced Laterality: left Qualified Code(s): S32.602A - Unspecified fracture of left ischium, initial encounter for closed fracture (2) End-stage renal disease (ESRD) Current Visit: No Status: Acute Assessment and plan: Patient missed HD visit today d/t fall on Wednesday Consulted Dr. Rivers for continued HD care while inpatient Monitor daily labs (3) Diabetes Current Visit: No Status: Acute Assessment and plan: Uncontrolled DM Accu checks ac/hs with moderate humalog sliding scale coverage Will continue levemir 10 units @ hs Goal is under 200 while inpatient Qualifiers: Diabetes mellitus type: type 2 Diabetes mellitus mcc insulin use: with intermediate designer use Diabetes mellitus complication status: with unspecified complications Qualified Code(s): E11.8 - Type 2 diabetes mellitus with unspecified complications; Z79.4 - prison (current) use of insulin (4) COPD (chronic obstructive pulmonary disease) Current Visit: No Status: Chronic Assessment and plan: Oxygen prn keep sats gt 92% Continue bronchodilators Qualifiers: COPD type: unspecified COPD Qualified Code(s): J44.9 - Chronic obstructive pulmonary disease, unspecified (5) Hyponatremia Current Visit: Yes Status: Acute Assessment and plan: Consulted with nephrology Will give - Time Spent With Patient Total time spent is greater than 50% in coordination of care (as documented) at patient's floor/unit and/or counseling patient: 25 - 35 minutes
[2018-03-28] MEDS ORDERED: 0.9 % Sodium Chloride 1,000 ML IVC SCH (15:00)
[2018-03-28] MEDS ORDERED: 0.9 % Sodium Chloride 1,000 ML ONE (15:49)
[2018-03-28] MEDS ORDERED: 0.9 % Sodium Chloride 250 ML IVC PRN (16:04)
[2018-03-28] MEDS ORDERED: 0.9 % Sodium Chloride 1,000 ML PRIME SCH (16:15)
[2018-03-28] MEDS ORDERED: Sennosides 8.6 MG TABLET PO PRN (16:23)
[2018-03-28] MEDS ORDERED: Albuterol Neb 0.63 MG/3 ML VIAL IH PRN (16:23)
[2018-03-28] MEDS ORDERED: Acetaminophen 325 MG TABLET PO PRN (16:23)
[2018-03-28] MEDS ORDERED: Dextrose Gel 15 GM/37.5 ML TUBE PO PRN ×2 (16:31)
[2018-03-28] MEDS ORDERED: D5% in Water 1,000 ML IVC PRN (16:31)
[2018-03-28] MEDS ORDERED: *HR* Dextrose 50 % in Water (Syg) 50 ML SYRINGE IVP PRN (16:31)
[2018-03-28] MEDS: Calcium Acetate 667 MG CAPSULE PO SCH ×2 (17:31→17:50)
[2018-03-28] MEDS: Metoclopramide 10 MG/10 ML UD.LIQ PO SCH ×2 (17:31→17:52)
[2018-03-28] MEDS: Cholecalciferol (D-3) 1,000 UNIT TABLET PO SCH (17:52)
[2018-03-28] MEDS: *HR* Morphine Sulfate SR (12 HR) 30 MG TABLET.ER PO SCH (17:52)
--- NOTE | 2018-03-28 17:52 | Nephrology Consult Note ---
Date of Encounter: 03/28/18 Time of Encounter: 17:00 Assessment and Plan (1) End-stage renal disease (ESRD) Status: Acute Will continue HD with UF goal of 4kg as tolerated Lytes fairly stable except sodium, should improve with HD Resume home meds including phos binders (2) Pelvic fracture Status: Acute Per ortho, pain control as well Qualifiers: Encounter type: initial encounter Pelvic bone location: ischium Fracture type: closed Fracture morphology: unspecified fracture morphology Fracture alignment: nondisplaced Laterality: left Qualified Code(s): S32.602A - Unspecified fracture of left ischium, initial encounter for closed fracture (3) Anemia Status: Acute Hgb noted at 9.1, will monitor and use EPO if needed Qualifiers: Anemia type: unspecified type Qualified Code(s): D64.9 - Anemia, unspecified (4) Hyponatremia Status: Acute History of Present Illness - Reason for Consult Consult date: 03/28/18 end stage renal disease Requesting physician: Antonia Ramirez - History of Present Illness 63 y o female with PMH of DM, HTN, CAD and ESRD on HD well known to me admitted from [facility] s/p fall sustaining pelvic fracture. Pt seen and examined on HD. She reports jumping up out of bed in the middle of the night and falling with resultant pelvis pain over the weekend. When she arrived to HD unit for treatment, she was in so much pain that she refused treatment and presented to the ER where her fracture was confirmed. Pain relatively controlled at the time of the evaluation. Denies any other complaints Past Med Surg Social Fam HX - Past Medical History Medical history: CHF, COPD, diabetes, myocardial infarction Additional medical history: no defecits from previous CVA Psychiatric history: anxiety, depression, schizophrenia, previous psychiatric hospitalization - Past Surgical History Surgical History: angioplasty/stent, appendectomy, cholecystectomy, coronary bypass (CABG), hysterectomy, knee replacement, other, IVC filter Additional surgical history: CABG 2002,BILAT KNEE REPLACEMENTS,TONSILLECTOMY,3- 4 CARDIAC STENTS, ORIF RT ARM - Social History Smoking Status: Current every day smoker Smokeless Tobacco Status: No Alcohol use: none Drug use: none - Family History Father Family Member Ethnicity: Non- Living Status: Hx Family Cardiac Disorders: Yes Hx Family Respiratory Disorders: Yes Hx Family Cancer: Yes (Polycythemia) Hx Family Endocrine Disorder: Yes (DM) Mother Family Member Ethnicity: Non- Living Status: Still Living Hx Family Cardiac Disorders: Yes Hx Family Respiratory Disorders: Yes (asthma, COPD) Brother Adopted: No Family Member Ethnicity: Non- Living Status: Still Living Hx Family Cardiac Disorders: No Hx Family Respiratory Disorders: No Hx Family Cancer: No Hx Family GI Disorders: No Hx Family Endocrine Disorder: No Hx Family Neuromuscular Disorders: No Hx Family Neurologic Disorders: No Hx Family HEENT Disorders: No Hx Family Autoimmune Disorders: No Sister Adopted: No Family Member Ethnicity: Non- Living Status: Still Living Hx Family Cardiac Disorders: Yes Hx Family Respiratory Disorders: No Hx Family Cancer: No Hx Family GI Disorders: No Hx Family Endocrine Disorder: Yes Hx Family Neuromuscular Disorders: No Hx Family Neurologic Disorders: No Hx Family HEENT Disorders: No Hx Family Autoimmune Disorders: No Medications and Allergies Omeprazole [PriLOSEC] 20 mg PO DAILY 05/11/15 [History] Colestipol HCl [Colestid] 1 gm PO BID 06/12/15 [History] Calcium Acetate [Phos-LO] 1,334 mg PO TIDWM 09/06/16 [History] Folic Acid/Vit Bcomp,C [Renal Vitamin Tablet] 0.8 mg PO DAILY 04/15/17 [History] ARIPiprazole [Abilify] 10 mg PO DAILY 09/13/17 [History] Aspirin Enteric Coated [Aspirin EC] 81 mg PO DAILY 09/13/17 [History] Budesonide/Formoterol 160/4.5 [Symbicort 160/4.5] 2 puff IH BIDR 09/13/17 [ History] Cholecalciferol (Vitamin D3) [Vitamin D3] 50,000 unit PO TH 09/13/17 [History] OxyCODONE/APAP 10/325 [Percocet 10/325 MG] 1 tab PO Q6H PRN 09/13/17 [History] Sennosides [Senna] 8.6 mg PO BID PRN 09/13/17 [History] Sevelamer [Renvela] 800 mg PO TID 09/13/17 [History] Albuterol Neb [AccuNeb] 0.63 mg IH Q6H PRN 10/18/17 [History] Oxybutynin [Ditropan] 5 mg PO TID 11/11/17 [History] Insulin LISPRO [Humalog Kwikpen U-100] 0 unit SQ ACHS 11/25/17 [History] Acetaminophen [Tylenol] 650 mg PO Q6HR PRN tablet 12/14/17 [Rx] amLODIPine [Norvasc] 5 mg PO DAILY 12/30/17 [History] Clopidogrel [Plavix] 75 mg PO DAILY 02/03/18 [History] Collagenase Oint [Santyl] 1 appl TP DAILY #1 tube 02/09/18 [Rx] Saccharomyces Boulardii [Florastor] 250 mg PO BID #20 capsule 02/09/18 [Rx] Rosuvastatin Calcium [Crestor] 20 mg PO DAILY 02/27/18 [History] metOLazone [Zaroxolyn] 2.5 mg PO DAILY 02/27/18 [History] Insulin DETEMIR [Levemir] 10 unit SQ HS #30 [id number] 03/04/18 [Rx] Amitriptyline [Elavil] 50 mg PO HS tablet 03/24/18 [Rx] Gabapentin [Neurontin] 100 mg PO TID 3 Days #10 capsule 03/24/18 [Rx] Morphine Sulfate SR (12 HR) [MS Contin] 30 mg PO Q12HR 3 Days #6 03/24/18 [Rx] Carvedilol [Coreg] 6.25 mg PO BIDWM tablet 03/30/18 [Rx] Carvedilol [Coreg] 6.25 mg PO BIDWM #60 tablet 03/30/18 [Rx] Darbepoetin [Aranesp] 60 mcg SQ QWEEK syringe 03/30/18 [Rx] 3 Allergy/AdvReac Type Severity Reaction Status Date / Time No Known Allergies Allergy Verified 03/28/18 13:51 Review of Systems All Systems: reviewed and no additional remarkable complaints except as stated ( 10 systems reviewed) Exam - Vital Signs Vital signs: Initial Vital Signs Temp Pulse Resp BP Pulse Ox 98.2 F 91 20 116/62 97 03/28/18 11:08 03/28/18 11:08 03/28/18 11:08 03/28/18 11:08 03/28/18 11:08 Vital Signs - Last 8 Hours Temp Pulse Resp BP Pulse Ox 03/28/18 16:50 97.5 F L 18 127/62 06/18/18 15:46 98.2 F 90 18 104/49 100 03/28/18 14:13 18 107/47 Intake and Output 03/28/18 03/28/18 03/28/18 07:59 15:59 23:59 Intake Total 600 / 600 Balance 600 / 600 Intake: Oral 0 / 0 Intake, Rinseback and Flushes 600 / 600 Other: Weight 99 kg Blood Glucose* 357 Hemodialysis Net Fluid Removed 0 (mL) Patient Weight 03/28/18 23:59 Weight 99 kg - General Appearance General appearance: chronically ill EENT: ATNC, mucous membranes moist Neck: no JVD, supple Respiratory: clear (ant bilat) Cardiology: edema (improved LE bilat), normal S1, normal S2 - Dialysis Access thrill: Yes bruit: Yes Gastrointestinal: no tenderness, no guarding, obese Integumentary: hyperpigmentation, chronic venous stasis Neurologic: no focal deficit Musculoskeletal: no deformities Psychiatric: mood/affect appropriate, cooperative Results - Lab Results 03/30/18 04:50 03/30/18 04:50 Most recent lab results Calcium 8.8 mg/dL (8.6-10.3) 03/28/18 12:40 Consult Discharge Plan - Plan Referrals: Tristen Quintana MD [Primary Care Provider] - Prescriptions: Carvedilol [Coreg] 6.25 mg PO BIDWM #60 tablet
[2018-03-28] MEDS: Budesonide/Formoterol 160/4.5 MDI IH SCH (20:02)
[2018-03-28] MEDS: Ondansetron 4 MG/2 ML VIAL IVP PRN (21:40)
[2018-03-28] MEDS: Insulin DETEMIR 100 UNIT/ML X5UNITS SQ SCH (21:50)
[2018-03-28] MEDS: Insulin LISPRO 300 UNITS/3 ML VIAL SQ SCH (21:50)
[2018-03-28] MEDS: *HR* OxyCODONE/APAP 10/325 TABLET PO PRN (21:50)
[2018-03-28] MEDS: (Saccharomyces Boulardii [Florastor] 250 MG) PO SCH (21:51)
[2018-03-28] MEDS: (Colestipol Hcl [Colestid] 1 GM) PO SCH (21:51)
[2018-03-28] MEDS: Gabapentin 100 MG CAPSULE PO SCH (21:51)
[2018-03-29 01:48] LABS: Bilirubin,Urine Negative (Negative); Blood,Urine Moderate (Negative); Clarity,Urine Turbid (Clear); Color,Urine Dark Yellow (Yellow); Glucose,Urine (UA) Normal (Normal); Ketones,Urine Trace mg/dL (Negative); Leukocyte Esterase,Urine Large (Negative); Nitrite,Urine Negative (Negative); Protein,Urine >=300 mg/dL (Neg-Trace); Specific Gravity,Urine 1.017 (1.010-1.025); Urobilinogen,Urine Normal (Normal)
[2018-03-29 01:58] LABS: Bacteria,Urine Many per hpf (None-Few); WBC,Urine TNTC per hpf (0-3)
[2018-03-29 01:59] LABS: RBC,Urine 0-3 per hpf (0-3)
[2018-03-29] MEDS: Ondansetron 4 MG/2 ML VIAL IVP PRN (04:45)
[2018-03-29] MEDS: *HR* OxyCODONE/APAP 10/325 TABLET PO PRN ×2 (04:45→11:26)
[2018-03-29 05:09] LABS: Basophils # 0.1 K/mcL (0.0-0.2); Basophils % 0.5 %; Eosinophils # 0.1 K/mcL (0.0-0.6); Eosinophils % 1.1 %; Hematocrit 28.9 % (35.3-44.9); Hemoglobin 8.5 g/dL (11.5-15.4); Lymphocytes # 1.7 K/mcL (0.6-4.6); Lymphocytes % 18.8 %; Mean Corpuscular HGB Conc 29.4 g/dL (31.6-35.5); Mean Corpuscular Hemoglobin 25.5 pg (28.0-33.3); Mean Corpuscular Volume 86.8 fL (83.0-100.0); Mean Platelet Volume 10.5 fL (9.4-12.4); Monocytes # 0.8 K/mcL (0.0-1.3); Monocytes % 8.4 %; Neutrophils # 6.4 K/mcL (1.6-8.9); Platelet Count 195 K/mcL (140-400); Red Blood Count 3.33 M/mcL (3.82-4.97); Segmented Neutrophils % 70.2 %
[2018-03-29 05:31] LABS: Calcium 8.5 mg/dL (8.6-10.3); Magnesium 1.6 mg/dL (1.6-2.6); Potassium 3.9 mEq/L (3.5-5.1)
[2018-03-29] MEDS: *HR* Morphine Sulfate SR (12 HR) 30 MG TABLET.ER PO SCH ×2 (06:04→16:52)
[2018-03-29] MEDS: (Saccharomyces Boulardii [Florastor] 250 MG) PO SCH (07:31)
[2018-03-29] MEDS: (Colestipol Hcl [Colestid] 1 GM) PO SCH (07:31)
[2018-03-29] MEDS: Renal Vitamin 1 MG CAPSULE PO SCH (07:39)
[2018-03-29] MEDS: amLODIPine 5 MG TABLET PO SCH (07:39)
[2018-03-29] MEDS: ARIPiprazole 10 MG TABLET PO SCH (07:39)
[2018-03-29] MEDS: Cholecalciferol (D-3) 1,000 UNIT TABLET PO SCH (07:39)
[2018-03-29] MEDS: Metoclopramide 10 MG/10 ML UD.LIQ PO SCH ×3 (07:40→16:50)
[2018-03-29] MEDS: Gabapentin 100 MG CAPSULE PO SCH ×3 (07:40→22:37)
[2018-03-29] MEDS: Calcium Acetate 667 MG CAPSULE PO SCH ×3 (07:40→16:52)
[2018-03-29] MEDS: Insulin LISPRO 300 UNITS/3 ML VIAL SQ SCH ×4 (07:40→22:19)
[2018-03-29] MEDS: Aspirin Enteric Coated 81 MG Tablet PO SCH (07:40)
--- NOTE | 2018-03-29 07:41 | Orthopedic Consult Note ---
Date of Encounter: 03/29/18 Time of Encounter: 07:39 Assessment and Plan (1) Pubic ramus fracture Current Visit: Yes Status: Acute I did discuss the diagnosis in great detail with the patient. She has pubic ramus fractures on the left. These are stable injuries and my recommendation is for physical therapy and occupational therapy with weightbearing as tolerated on the bilateral lower extremities. Mobilize when able from a medical standpoint. My recommendation is up to a chair at least twice a day. Follow-up in the office in 1 week for repeat set of x-rays or sooner if needed. I will sign off at this time but will be available for reconsultation at any time. Qualifiers: Qualified Code(s): S32.591A - Other specified fracture of right pubis, initial encounter for closed fracture History of Present Illness HPI: Ms. Riley is a 63 year old female who is currently admitted to the hospitalist after a fall. She has multiple medical comorbidities including end-stage renal disease on dialysis. She also has major cardiac comorbidities. She had a fall while walking towards her wheelchair. She is admitted after being found to have a pelvic ring injury. I was consulted to assist in the evaluation and management of this patient. At this point she complains of only pain about the left groin region. Yesterday she was having left shoulder pain however this has significantly improved. Her pain is worse with movement and better with rest. No associated numbness, tingling, or other signs or symptoms or modifying factors. Past Med Surg Social Fam HX - Past Medical History Medical history: CHF, COPD, diabetes, myocardial infarction Additional medical history: no defecits from previous CVA Psychiatric history: anxiety, depression, schizophrenia, previous psychiatric hospitalization - Past Surgical History Surgical History: angioplasty/stent, appendectomy, cholecystectomy, coronary bypass (CABG), hysterectomy, knee replacement, other, IVC filter Additional surgical history: CABG 2002,BILAT KNEE REPLACEMENTS,TONSILLECTOMY,3- 4 CARDIAC STENTS, ORIF RT ARM - Social History Smoking Status: Current every day smoker Smokeless Tobacco Status: No Alcohol use: none Drug use: none - Family History Father Family Member Ethnicity: Non- Living Status: Hx Family Cardiac Disorders: Yes Hx Family Respiratory Disorders: Yes Hx Family Cancer: Yes (Polycythemia) Hx Family Endocrine Disorder: Yes (DM) Mother Family Member Ethnicity: Non- Living Status: Still Living Hx Family Cardiac Disorders: Yes Hx Family Respiratory Disorders: Yes (asthma, COPD) Brother Adopted: No Family Member Ethnicity: Non- Living Status: Still Living Hx Family Cardiac Disorders: No Hx Family Respiratory Disorders: No Hx Family Cancer: No Hx Family GI Disorders: No Hx Family Endocrine Disorder: No Hx Family Neuromuscular Disorders: No Hx Family Neurologic Disorders: No Hx Family HEENT Disorders: No Hx Family Autoimmune Disorders: No Sister Adopted: No Family Member Ethnicity: Non- Living Status: Still Living Hx Family Cardiac Disorders: Yes Hx Family Respiratory Disorders: No Hx Family Cancer: No Hx Family GI Disorders: No Hx Family Endocrine Disorder: Yes Hx Family Neuromuscular Disorders: No Hx Family Neurologic Disorders: No Hx Family HEENT Disorders: No Hx Family Autoimmune Disorders: No Medications and Allergies Omeprazole [PriLOSEC] 20 mg PO DAILY 05/11/15 [History] Colestipol HCl [Colestid] 1 gm PO BID 06/12/15 [History] Carvedilol 12.5 mg PO BID 10/28/15 [History] Calcium Acetate [Phos-LO] 1,334 mg PO TIDWM 09/06/16 [History] Folic Acid/Vit Bcomp,C [Renal Vitamin Tablet] 0.8 mg PO DAILY 04/15/17 [History] ARIPiprazole [Abilify] 10 mg PO DAILY 09/13/17 [History] Aspirin Enteric Coated [Aspirin EC] 81 mg PO DAILY 09/13/17 [History] Budesonide/Formoterol 160/4.5 [Symbicort 160/4.5] 2 puff IH BIDR 09/13/17 [ History] Cholecalciferol (Vitamin D3) [Vitamin D3] 50,000 unit PO TH 09/13/17 [History] OxyCODONE/APAP 10/325 [Percocet 10/325 MG] 1 tab PO Q6H PRN 09/13/17 [History] Sennosides [Senna] 8.6 mg PO BID PRN 09/13/17 [History] Sevelamer [Renvela] 800 mg PO TID 09/13/17 [History] Albuterol Neb [AccuNeb] 0.63 mg IH Q6H PRN 10/18/17 [History] Oxybutynin [Ditropan] 5 mg PO TID 11/11/17 [History] Insulin LISPRO [Humalog Kwikpen U-100] 0 unit SQ ACHS 11/25/17 [History] Acetaminophen [Tylenol] 650 mg PO Q6HR PRN tablet 12/14/17 [Rx] amLODIPine [Norvasc] 5 mg PO DAILY 12/30/17 [History] Metoclopramide [Reglan] 5 mg PO TIDAC #15 [id number] 01/13/18 [Rx] Clopidogrel [Plavix] 75 mg PO DAILY 02/03/18 [History] Collagenase Oint [Santyl] 1 appl TP DAILY #1 tube 02/09/18 [Rx] Saccharomyces Boulardii [Florastor] 250 mg PO BID #20 capsule 02/09/18 [Rx] Rosuvastatin Calcium [Crestor] 20 mg PO DAILY 02/27/18 [History] metOLazone [Zaroxolyn] 2.5 mg PO DAILY 02/27/18 [History] Insulin DETEMIR [Levemir] 10 unit SQ HS #30 q0smgie 03/04/18 [Rx] Amitriptyline [Elavil] 50 mg PO HS tablet 03/24/18 [Rx] Gabapentin [Neurontin] 100 mg PO TID 3 Days #10 capsule 03/24/18 [Rx] Morphine Sulfate SR (12 HR) [MS Contin] 30 mg PO Q12HR 3 Days #6 03/24/18 [Rx] 3 Allergy/AdvReac Type Severity Reaction Status Date / Time No Known Allergies Allergy Verified 03/28/18 13:51 All Systems Reviewed: Constitutional and musculoskeletal systems were reviewed and are negative unless otherwise stated in history of present illness. Physical Exam - Constitutional Vitals: Temp Pulse Resp BP Pulse Ox 98.3 F 83 20 110/69 96 03/29/18 06:57 03/29/18 06:57 03/29/18 06:57 03/29/18 06:57 03/29/18 06:57 Constitutional -Vitals reviewed -The patient is well developed and well nourished. -Mood is pleasant. -The patient is well groomed. Psychiatric -The patient is fully alert and oriented x 3. Respiratory: -Respiratory effort normal Abdomen: -Soft abdomen -Non tender -Non distended: Left upper extremity: -No deformities. The overlying skin is intact. No obvious signs of acute trauma. -No tenderness to palpation throughout. -No significant pain with passive motion of the shoulder, elbow, wrist, and fingers within the limits of the bed. -Able to make an "OK" sign, cross the index and long fingers, and extend the thumb. -Sensation grossly intact to light touch throughout the median, radial, and ulnar distributions. -Radial pulse is present; Fingers have good capillary refill. Right upper extremity: -No deformities. The overlying skin is intact. No obvious signs of acute trauma. -No tenderness to palpation throughout. -No significant pain with passive motion of the shoulder, elbow, wrist, and fingers within the limits of the bed. -Able to make an "OK" sign, cross the index and long fingers, and extend the thumb. -Sensation grossly intact to light touch throughout the median, radial, and ulnar distributions. -Radial pulse is present; Fingers have good capillary refill. Left lower extremity: -No deformities. The overlying skin is intact. No obvious signs of acute trauma. -No tenderness to palpation throughout. -She does have moderate pain with any passive motion of the left hip region. -No pain with passive motion of the knee, ankle, and toes within the limits of the bed. -No pain with axial loading of the thigh. -Able to dorsiflex and plantarflex the ankle and toes. -Sensation is grossly intact to light touch throughout the sural, saphenous, superficial peroneal, and deep peroneal distributions. -Toes have good capillary refill. Right lower extremity: -No deformities. The overlying skin is intact. No obvious signs of acute trauma. -No tenderness to palpation throughout. -No pain with passive motion of the hip, knee, ankle, and toes within the limits of the bed. -No pain with axial loading of the thigh. -Able to dorsiflex and plantarflex the ankle and toes. -Sensation is grossly intact to light touch throughout the sural, saphenous, superficial peroneal, and deep peroneal distributions. -Toes have good capillary refill. Diagnostic Imaging: I did personally review and interpret x-rays of the left hip as well as a CT scan of the pelvis do show pubic ramus fractures of the left superior and inferior pubic ramus. Shoulder x-rays are negative on the left. Results - Labs Result Diagrams: 03/29/18 04:00 03/29/18 04:00 Labs: Abnormal lab results RBC 3.33 M/mcL (3.82-4.97) L 03/29/18 04:00 Hgb 8.5 g/dL (11.5-15.4) L 03/29/18 04:00 Hct 28.9 % (35.3-44.9) L 03/29/18 04:00 MCH 25.5 pg (28.0-33.3) L 03/29/18 04:00 MCHC 29.4 g/dL (31.6-35.5) L 03/29/18 04:00 RDW 16.0 % (11.5-14.5) H 03/29/18 04:00 Sodium 132 mEq/L (136-145) L 03/29/18 04:00 Chloride 94 mEq/L (98-107) L 03/29/18 04:00 Creatinine 2.69 mg/dL (0.60-1.20) H 03/29/18 04:00 Est GFR ( Amer) 22 (> 60) L 03/29/18 04:00 Est GFR (Non-Af Amer) 18 (> 60) L 03/29/18 04:00 Glucose 310 mg/dL (70-105) H 03/29/18 04:00 POC Glucose 305 mg/dL (70-99) H 03/28/18 21:47 Calcium 8.5 mg/dL (8.6-10.3) L 03/29/18 04:00 Urine Clarity Turbid (Clear) A 03/29/18 01:30 Urine Protein >=300 mg/dL (Neg-Trace) H 03/29/18 01:30 Urine Ketones Trace mg/dL (Negative) H 03/29/18 01:30 Urine Blood Moderate (Negative) H 03/29/18 01:30 Ur Leukocyte Esterase Large (Negative) H 03/29/18 01:30 Urine Microscopic WBC TNTC per hpf (0-3) H 03/29/18 01:30 Urine Bacteria Many per hpf (None-Few) H 03/29/18 01:30 Ur Culture Indicated? YES (NO) A 03/29/18 01:30 H & H 03/29/18 Range/Units 04:00 Hgb 8.5 L (11.5-15.4) g/dL Hct 28.9 L (35.3-44.9) % All other labs normal. Consult Discharge Plan - Plan Referrals: Tristen Quintana MD [Primary Care Provider] -
[2018-03-29] MEDS: Budesonide/Formoterol 160/4.5 MDI IH SCH ×2 (07:54→20:24)
[2018-03-29] MEDS ORDERED: metOLazone 2.5 MG TABLET PO SCH (09:00)
--- NOTE | 2018-03-29 12:16 | Nephrology Progress Note ---
Date of Encounter: 03/29/18 Time of Encounter: 11:00 - Assessment and Plan (1) End-stage renal disease (ESRD) Current Visit: No Status: Acute s/p HD yesterday with UF of 4kg achieved Next HD planned tomorrow (2) Hyponatremia Current Visit: Yes Status: Acute Sodium, chronic issue stemming from persistent hypervolemic state and typically improves with HD. Now at 130, will monitor (3) Pubic ramus fracture Current Visit: Yes Status: Acute Per ortho, no intervention needed except PT Qualifiers: Qualified Code(s): S32.591A - Other specified fracture of right pubis, initial encounter for closed fracture (4) Anemia Current Visit: No Status: Acute Low hgb noted, will dose with aranesp Qualifiers: Anemia type: unspecified type Qualified Code(s): D64.9 - Anemia, unspecified Subjective Interval history: Pt seen and examined this am with no complaints. Pain is controlled. Family at bedside with daugther in law present Objective - Vital Signs Vital signs: Vital Signs Temp Pulse Resp BP Pulse Ox 03/29/18 11:00 98.4 F 78 18 120/69 96 03/29/18 07:54 20 96 03/29/18 07:51 96 03/29/18 06:57 98.3 F 83 20 110/69 96 03/29/18 04:08 98.3 F 97 14 125/60 98 03/28/18 22:19 98.8 F 95 15 111/57 99 03/28/18 20:35 97.6 F 19 150/58 03/28/18 20:20 136/44 03/28/18 20:05 127/51 03/28/18 19:50 121/55 03/28/18 19:35 134/56 03/28/18 19:20 126/59 03/28/18 19:05 119/58 03/28/18 18:50 106/62 03/28/18 18:35 116/43 03/28/18 18:20 122/43 03/28/18 18:05 121/41 03/28/18 17:50 119/43 03/28/18 17:35 129/71 03/28/18 17:20 143/57 03/28/18 17:05 116/49 03/28/18 16:50 97.5 F L 18 127/62 03/28/18 15:46 98.2 F 90 18 104/49 100 03/28/18 14:13 18 107/47 Intake and Output 03/28/18 03/29/18 03/29/18 23:59 07:59 15:59 Intake Total 600 / 600 240 / 240 Output Total 4600 / 4600 650 / 650 Balance -4000 / -4000 -650 / -650 240 / 240 Intake: Oral 0 / 0 240 / 240 Intake, Rinseback and Flushes 600 / 600 Output: Urine 0 / 0 0 / 0 Total Dialysis (HD) Output 4600 / 4600 Straight Cath 650 / 650 Other: Meal Breakfast Percent of Meal Consumed 25% Stool Size Copious Stool Consistency formed Weight 93.3 kg Blood Glucose* 305 272 102 Hemodialysis Net Fluid Removed 4000 (mL) Patient Weight 03/29/18 23:59 Weight 93.3 kg - General Appearance General appearance: Present: obese, chronically ill EENT: Present: ATNC, mucous membranes moist Neck: Present: no JVD, supple Respiratory: Present: clear (ant bilat) Cardiology: Present: edema (LE bilat, improving), normal S1, normal S2 Dialysis Vascular Access: Arteriovenous Fistula thrill: Yes bruit: Yes Gastrointestinal: Present: no tenderness, no guarding, obese Integumentary: Present: warm and dry, hyperpigmentation, chronic venous stasis Neurologic: Present: no focal deficit Musculoskeletal: Present: no deformities Psychiatric: Present: mood/affect appropriate, cooperative - Lab 03/29/18 04:00 03/29/18 04:00 Most recent lab results Calcium 8.5 mg/dL (8.6-10.3) L 03/29/18 04:00 Magnesium 1.6 mg/dL (1.6-2.6) 03/29/18 04:00 Consult Discharge Plan - Plan Referrals: Tristen Quintana MD [Primary Care Provider] -
[2018-03-29] MEDS: *HR* Heparin 5,000 UNIT/ML VIAL SQ SCH (16:53)
[2018-03-29] MEDS: Furosemide 40 MG/4 ML VIAL IVP SCH (16:54)
--- NOTE | 2018-03-29 20:44 | Internal Med Progress Note ---
Date of Encounter: 03/29/18 Time of Encounter: 20:44 - Assessment and plan (1) Pelvic fracture Current Visit: Yes Status: Acute Assessment and plan: She has mildly displaced pelvic fracture. See notes from orthopedic surgery. We started her physical therapy for ambulation. We will continue it at the custodial facility. Qualifiers: Encounter type: initial encounter Pelvic bone location: ischium Fracture type: closed Fracture morphology: unspecified fracture morphology Fracture alignment: nondisplaced Laterality: left Qualified Code(s): S32.602A - Unspecified fracture of left ischium, initial encounter for closed fracture (2) Type 2 diabetes mellitus with ESRD (end-stage renal disease) Current Visit: Yes Status: Acute Assessment and plan: The patient will continue hemodialysis. She is on diabetic diet. She gets Levemir and when necessary Humalog. (3) Acute hypokalemia Current Visit: Yes Status: Acute Assessment and plan: We will start supplemental potassium chloride tablets. (4) Hypomagnesemia Current Visit: Yes Status: Acute Assessment and plan: We will give her IV magnesium sulfate rider. Will check magnesium in the morning. (5) Anemia of chronic disease Current Visit: No Status: Chronic Assessment and plan: Stable. Treatment, as per nephrology. - Time Spent With Patient Total time spent is greater than 50% in coordination of care (as documented) at patient's floor/unit and/or counseling patient: - Subjective Interval history: The patient sustained pelvic fracture recently. She started physical therapy today. She has a lot of pain in her pelvis when standing. She has not started an ambulation. Denies chest pain. Denies difficulty breathing. She does have mild cough. She complains of thick secretions. Denies wheezing. Denies abdominal pain, nausea and vomiting. She gets hemodialysis. - Constitutional Vitals: Temp Pulse Resp BP Pulse Ox 98 F 92 15 106/45 92 03/29/18 18:40 03/29/18 18:40 03/29/18 20:24 03/29/18 18:40 03/29/18 20:24 General appearance: Present: A&O X 3, answers questions appropriately - Respiratory Respiratory exam: Present: CTAB. Absent: accessory muscle use, rales, rhonchi, wheezes - Cardiovascular Cardiovascular exam: Present: RRR, +S1, +S2. Absent: diastolic murmur, gallop, rubs, systolic murmur - GI/Abdominal GI/Abdominal exam: Present: normal bowel sounds, soft, no peritoneal signs. Absent: distended, tenderness - Skin Skin exam: Present: dry, intact Internal Medicine: Result - Labs CBC & Chem 7: 03/29/18 04:00 03/29/18 04:00 Labs: Short CBC 03/29/18 Range/Units 04:00 WBC 9.2 (4.3-11.1) K/mcL Hgb 8.5 L (11.5-15.4) g/dL Hct 28.9 L (35.3-44.9) % Plt Count 195 (140-400) K/mcL Neutrophils # 6.4 (1.6-8.9) K/mcL BMP 03/28/18 03/29/18 22:00 04:00 Sodium 132 L 132 L Potassium 3.9 Chloride 94 L Carbon Dioxide 29 BUN 20 Creatinine 2.69 H Glucose 310 H Calcium 8.5 L Urine 03/29/18 Range/Units 01:30 Urine Color Dark Yellow (Yellow) Urine Clarity Turbid A (Clear) Urine pH 6.0 (5.0-8.0) pH Units Ur Specific [place] 1.017 (1.010-1.025) Urine Protein >=300 H (Neg-Trace) mg/dL Urine Glucose (UA) Normal (Normal) mg/dL Consult Discharge Plan - Plan Referrals: Tristen Quintana MD [Primary Care Provider] -
[2018-03-29] MEDS: Insulin DETEMIR 100 UNIT/ML X5UNITS SQ SCH (22:37)
[2018-03-29] MEDS: Lactobacillus 1 EACH CAP.SPRINK PO SCH (22:37)
[2018-03-30] MEDS: *HR* Morphine Sulfate SR (12 HR) 30 MG TABLET.ER PO SCH ×2 (05:10→17:44)
[2018-03-30] MEDS: Ondansetron 4 MG/2 ML VIAL IVP PRN (05:10)
[2018-03-30] MEDS: *HR* Heparin 5,000 UNIT/ML VIAL SQ SCH (05:10)
[2018-03-30 05:11] LABS: Basophils # 0.1 K/mcL (0.0-0.2); Basophils % 0.7 %; Eosinophils # 0.2 K/mcL (0.0-0.6); Eosinophils % 2.1 %; Hematocrit 32.6 % (35.3-44.9); Hemoglobin 9.7 g/dL (11.5-15.4); Immature Granulocytes % 1.5 % (0-4); Immature Platelets 3.5 % (1.1-6.1); Lymphocytes # 2.6 K/mcL (0.6-4.6); Lymphocytes % 23.8 %; Mean Corpuscular HGB Conc 29.8 g/dL (31.6-35.5); Mean Corpuscular Hemoglobin 25.9 pg (28.0-33.3); Mean Corpuscular Volume 87.2 fL (83.0-100.0); Mean Platelet Volume 10.5 fL (9.4-12.4); Monocytes # 1.1 K/mcL (0.0-1.3); Monocytes % 10.1 %; Neutrophils # 6.8 K/mcL (1.6-8.9); Platelet Count 233 K/mcL (140-400); Red Blood Count 3.74 M/mcL (3.82-4.97); Red Cell Distribution Width 16.3 % (11.5-14.5); Segmented Neutrophils % 61.8 %
[2018-03-30 05:30] LABS: Calcium 9.1 mg/dL (8.6-10.3); Potassium 4.5 mEq/L (3.5-5.1)
[2018-03-30] MEDS ORDERED: 0.9 % Sodium Chloride 2,000 ML ONE (07:25)
[2018-03-30] MEDS: Budesonide/Formoterol 160/4.5 MDI IH SCH (07:44)
[2018-03-30] MEDS ORDERED: 0.9 % Sodium Chloride 250 ML IVC PRN (08:14)
[2018-03-30] MEDS ORDERED: 0.9 % Sodium Chloride 1,000 ML PRIME SCH (08:15)
[2018-03-30] MEDS: Metoclopramide 10 MG/10 ML UD.LIQ PO SCH ×3 (08:42→17:42)
[2018-03-30] MEDS: Furosemide 40 MG/4 ML VIAL IVP SCH ×2 (08:43→17:44)
[2018-03-30] MEDS: Insulin LISPRO 300 UNITS/3 ML VIAL SQ SCH ×3 (08:43→17:41)
[2018-03-30] MEDS: Gabapentin 100 MG CAPSULE PO SCH ×2 (08:45→13:32)
[2018-03-30] MEDS: Cholecalciferol (D-3) 1,000 UNIT TABLET PO SCH (08:45)
[2018-03-30] MEDS: Aspirin Enteric Coated 81 MG Tablet PO SCH (08:45)
[2018-03-30] MEDS: Calcium Acetate 667 MG CAPSULE PO SCH ×3 (08:45→17:43)
[2018-03-30] MEDS: ARIPiprazole 10 MG TABLET PO SCH (08:45)
[2018-03-30] MEDS: Lactobacillus 1 EACH CAP.SPRINK PO SCH (08:45)
[2018-03-30] MEDS: amLODIPine 5 MG TABLET PO SCH (08:46)
[2018-03-30] MEDS: Renal Vitamin 1 MG CAPSULE PO SCH (08:46)
--- NOTE | 2018-03-30 12:59 | Nephrology Progress Note ---
Date of Encounter: 03/30/18 Time of Encounter: 12:00 - Assessment and Plan (1) End-stage renal disease (ESRD) Current Visit: No Status: Acute s/p HD yesterday with UF of 4kg achieved Next HD planned tomorrow (2) Hyponatremia Current Visit: Yes Status: Acute Sodium, chronic issue stemming from persistent hypervolemic state and typically improves with HD. Now at 130, will monitor (3) Pubic ramus fracture Current Visit: Yes Status: Acute Per ortho, no intervention needed except PT Qualifiers: Qualified Code(s): S32.591A - Other specified fracture of right pubis, initial encounter for closed fracture (4) Anemia Current Visit: No Status: Acute Low hgb noted, will dose with aranesp Qualifiers: Anemia type: unspecified type Qualified Code(s): D64.9 - Anemia, unspecified Subjective Interval history: Pt seen and examined this am with no complaints. Pain is controlled. Family at bedside with daugther in law present Objective - Vital Signs Vital signs: Vital Signs Temp Pulse Resp BP Pulse Ox 03/30/18 09:01 94 03/30/18 07:44 18 94 03/30/18 07:17 98.5 F 115 18 120/71 91 03/30/18 04:11 98.9 F 96 16 136/60 96 03/29/18 23:35 98.2 F 92 16 109/70 93 03/29/18 22:42 93 03/29/18 20:24 15 92 03/29/18 18:40 98 F 92 16 106/45 93 03/29/18 15:39 98.1 F 94 20 130/52 95 Intake and Output 03/29/18 03/30/18 03/30/18 23:59 07:59 15:59 Intake Total 290 / 290 Output Total 0 / 0 Balance 290 / 290 Intake: Oral 290 / 290 Output: Urine 0 / 0 Other: Meal Breakfast Percent of Meal Consumed 5% Weight 96 kg Blood Glucose* 176 215 103 - Lab 03/30/18 04:50 03/30/18 04:50 Most recent lab results Calcium 9.1 mg/dL (8.6-10.3) 03/30/18 04:50 Phosphorus 4.5 mg/dL (2.7-4.5) 03/30/18 04:50 Magnesium 1.6 mg/dL (1.6-2.6) 03/29/18 04:00 Consult Discharge Plan - Plan Referrals: Tristen Quintana MD [Primary Care Provider] -
[2018-03-30 13:31] VITALS: BP 100/65
--- NOTE | 2018-03-30 17:01 | Discharge Summary ---
- NOTES TO OUTPATIENT PROVIDER Notes to Outpatient Provider: The patient was admitted shortly after she had experienced a fall. Subsequently she sustained mildly displaced pelvic fracture. Her pain seems to be under control. She is able to hold her weight, when standing with assistance. See orthopedic surgery consult. Conservative treatment has been chosen. Orders not resulted at time of discharge: Pending orders 03/29/18 01:30 Culture,Urine [RM] Routine 03/31/18 04:00 Basic Metabolic Panel AM 0400 Complete Blood Count [HEME] AM 0400 Date of Encounter: 03/30/18 Time of Encounter: 16:59 - Discharge Diagnosis (1) Pelvic fracture Priority: Primary Status: Acute Qualifiers: Encounter type: initial encounter Pelvic bone location: ischium Fracture type: closed Fracture morphology: unspecified fracture morphology Fracture alignment: nondisplaced Laterality: left Qualified Code(s): S32.602A - Unspecified fracture of left ischium, initial encounter for closed fracture (2) Type 2 diabetes mellitus with ESRD (end-stage renal disease) Priority: Secondary Status: Acute (3) Acute hypokalemia Priority: Secondary Status: Acute (4) Hypomagnesemia Priority: Secondary Status: Acute (5) Anemia of chronic disease Priority: Secondary Status: Chronic Hospital course: Ms. Riley is a 63 year old female Discharge discussed with: patient, nurse, case management Time spent discussing smoking cessation with patient: 3 to 10 minutes - Time Spent with Patient Total time spent providing and/or coordinating discharge services: Greater than 30 minutes (45 MINUTES) - Discharge Medications Prescriptions: Carvedilol [Coreg] 6.25 mg PO BIDWM #60 tablet Home Medications: Omeprazole [PriLOSEC] 20 mg PO DAILY 05/11/15 [History] Colestipol HCl [Colestid] 1 gm PO BID 06/12/15 [History] Calcium Acetate [Phos-LO] 1,334 mg PO TIDWM 09/06/16 [History] Folic Acid/Vit Bcomp,C [Renal Vitamin Tablet] 0.8 mg PO DAILY 04/15/17 [History] ARIPiprazole [Abilify] 10 mg PO DAILY 09/13/17 [History] Aspirin Enteric Coated [Aspirin EC] 81 mg PO DAILY 09/13/17 [History] Budesonide/Formoterol 160/4.5 [Symbicort 160/4.5] 2 puff IH BIDR 09/13/17 [ History] Cholecalciferol (Vitamin D3) [Vitamin D3] 50,000 unit PO TH 09/13/17 [History] OxyCODONE/APAP 10/325 [Percocet 10/325 MG] 1 tab PO Q6H PRN 09/13/17 [History] Sennosides [Senna] 8.6 mg PO BID PRN 09/13/17 [History] Sevelamer [Renvela] 800 mg PO TID 09/13/17 [History] Albuterol Neb [AccuNeb] 0.63 mg IH Q6H PRN 10/18/17 [History] Oxybutynin [Ditropan] 5 mg PO TID 11/11/17 [History] Insulin LISPRO [Humalog Kwikpen U-100] 0 unit SQ ACHS 11/25/17 [History] Acetaminophen [Tylenol] 650 mg PO Q6HR PRN tablet 12/14/17 [Rx] amLODIPine [Norvasc] 5 mg PO DAILY 12/30/17 [History] Clopidogrel [Plavix] 75 mg PO DAILY 02/03/18 [History] Collagenase Oint [Santyl] 1 appl TP DAILY #1 tube 02/09/18 [Rx] Saccharomyces Boulardii [Florastor] 250 mg PO BID #20 capsule 02/09/18 [Rx] Rosuvastatin Calcium [Crestor] 20 mg PO DAILY 02/27/18 [History] metOLazone [Zaroxolyn] 2.5 mg PO DAILY 02/27/18 [History] Insulin DETEMIR [Levemir] 10 unit SQ HS #30 [id number] 03/04/18 [Rx] Amitriptyline [Elavil] 50 mg PO HS tablet 03/24/18 [Rx] Gabapentin [Neurontin] 100 mg PO TID 3 Days #10 capsule 03/24/18 [Rx] Morphine Sulfate SR (12 HR) [MS Contin] 30 mg PO Q12HR 3 Days #6 03/24/18 [Rx] Carvedilol [Coreg] 6.25 mg PO BIDWM tablet 03/30/18 [Rx] Carvedilol [Coreg] 6.25 mg PO BIDWM #60 tablet 03/30/18 [Rx] Darbepoetin [Aranesp] 60 mcg SQ QWEEK syringe 03/30/18 [Rx] Allergies/Adverse Reactions: 3 Allergy/AdvReac Type Severity Reaction Status Date / Time No Known Allergies Allergy Verified 03/28/18 13:51 Date of admission: 03/28/18 14:04 Primary care physician: Tristen Quintana MD Consults: 03/28/18 14:23 Consult to PICC team [Consult to Invasive Line Access Team] [CONS] Routine Reason for Consult: no IV access Line Type: EPIV 03/28/18 15:35 Consult to Invasive Line Access Team [CONS] Routine Reason for Consult: poor access Line Type: EPIV 03/28/18 15:50 Consult to Nephrology [CONS] Routine Consulting Provider: Yong Baker/MARCO/SWAPNA/MILLIE Reason for Consult: HD Call Completed: Yes 03/28/18 15:58 OT [Consult to Occupational Therapy] [CONS] Routine Comment: Evaluate, develop and implement POC Reason for Consult: F[place]QU[place]ALL[place] Does patient have active BEDREST order?: Yes Is patient medically & hemodynamically stable?: No Patient assessed for mobility or mobilized this visit?: No PT [Consult to Physical Therapy] [CONS] Routine Comment: Evaluate, develop and implement POC Reason for Consult: FREQUENT [place]ALLS Does patient have active BEDREST order?: Yes Is patient medically & hemodynamically stable?: No Patient assessed for mobility or mobilized this visit?: No 03/28/18 16:08 Consult to Disk Sharpener [CONS] Routine Reason for SW Consult: From [facility]CF 03/28/18 16:15 Consult to Dialysis [CONS] ONCE 03/29/18 13:57 Consult to Wound Care [CONS] Routine Reason for Consult: Stage 3 coccyx wound. previously had wound vac. may need packing Time Notified: 13:57 Call Completed: Yes 03/30/18 08:15 Consult to Dialysis [CONS] ONCE 03/31/18 08:15 Consult to Dialysis [CONS] ONCE Discharging clinician: Carlos Bermeo Anticipated date of discharge: 03/30/18 - Constitutional Vitals: Temp Pulse Resp BP Pulse Ox 98.4 F 88 18 100/65 92 03/30/18 16:04 03/30/18 16:04 03/30/18 16:04 03/30/18 16:04 03/30/18 16:04 General appearance: Present: A&O X 3, answers questions appropriately - Patient Status Condition: Good - Discharge Instructions Follow Up With: Tristen Quintana MD [Primary Care Provider] - Forms: ED Satisfaction Letter
--- NOTE | 2018-03-30 17:18 | Physician Discharge Referral ---
[facility] Referral Info [facility] To[facility] Provider in Charge: Jenelle WHITNEY Provider in Charge after Transfer: Other Institutional Level of Care: Skilled - Diagnosis (1) Pelvic fracture Status: Acute (2) Type 2 diabetes mellitus with ESRD (end-stage renal disease) Priority: Secondary Status: Acute (3) Acute hypokalemia Priority: Secondary Status: Acute (4) Hypomagnesemia Priority: Secondary Status: Acute (5) Anemia of chronic disease Priority: Secondary Status: Chronic Prognosis: Fair - Transfer Medications Prescriptions: Carvedilol [Coreg] 6.25 mg PO BIDWM #60 tablet Home Medications: Omeprazole [PriLOSEC] 20 mg PO DAILY 05/11/15 [History] Colestipol HCl [Colestid] 1 gm PO BID 06/12/15 [History] Calcium Acetate [Phos-LO] 1,334 mg PO TIDWM 09/06/16 [History] Folic Acid/Vit Bcomp,C [Renal Vitamin Tablet] 0.8 mg PO DAILY 04/15/17 [History] ARIPiprazole [Abilify] 10 mg PO DAILY 09/13/17 [History] Aspirin Enteric Coated [Aspirin EC] 81 mg PO DAILY 09/13/17 [History] Budesonide/Formoterol 160/4.5 [Symbicort 160/4.5] 2 puff IH BIDR 09/13/17 [ History] Cholecalciferol (Vitamin D3) [Vitamin D3] 50,000 unit PO TH 09/13/17 [History] OxyCODONE/APAP 10/325 [Percocet 10/325 MG] 1 tab PO Q6H PRN 09/13/17 [History] Sennosides [Senna] 8.6 mg PO BID PRN 09/13/17 [History] Sevelamer [Renvela] 800 mg PO TID 09/13/17 [History] Albuterol Neb [AccuNeb] 0.63 mg IH Q6H PRN 10/18/17 [History] Oxybutynin [Ditropan] 5 mg PO TID 11/11/17 [History] Insulin LISPRO [Humalog Kwikpen U-100] 0 unit SQ ACHS 11/25/17 [History] Acetaminophen [Tylenol] 650 mg PO Q6HR PRN tablet 12/14/17 [Rx] amLODIPine [Norvasc] 5 mg PO DAILY 12/30/17 [History] Clopidogrel [Plavix] 75 mg PO DAILY 02/03/18 [History] Collagenase Oint [Santyl] 1 appl TP DAILY #1 tube 02/09/18 [Rx] Saccharomyces Boulardii [Florastor] 250 mg PO BID #20 capsule 02/09/18 [Rx] Rosuvastatin Calcium [Crestor] 20 mg PO DAILY 02/27/18 [History] metOLazone [Zaroxolyn] 2.5 mg PO DAILY 02/27/18 [History] Insulin DETEMIR [Levemir] 10 unit SQ HS #30 [id number] 03/04/18 [Rx] Amitriptyline [Elavil] 50 mg PO HS tablet 03/24/18 [Rx] Gabapentin [Neurontin] 100 mg PO TID 3 Days #10 capsule 03/24/18 [Rx] Morphine Sulfate SR (12 HR) [MS Contin] 30 mg PO Q12HR 3 Days #6 03/24/18 [Rx] Carvedilol [Coreg] 6.25 mg PO BIDWM tablet 03/30/18 [Rx] Carvedilol [Coreg] 6.25 mg PO BIDWM #60 tablet 03/30/18 [Rx] Darbepoetin [Aranesp] 60 mcg SQ QWEEK syringe 03/30/18 [Rx] Allergies/Adverse Reactions: 3 Allergy/AdvReac Type Severity Reaction Status Date / Time No Known Allergies Allergy Verified 03/28/18 13:51 - Respiratory Orders Smoking Cessation: Smoking cessation has been advised. For more information, call the [place] Tobacco Quit Line at 1-261-PNHW-NOW. - Advance Directives Code Status: DNR-Comfort Care - Mobility Orders Other (ONLY WITH PT..) - Rehabiliation Orders Rehab Potential: Fair Rehab Orders: Evaluation for Physical Therapy, Evaluation for Occupational Therapy - Treatments Skin tear care topically daily PRN per policy CERTIFICATION: I certify that the transfer of the above named patient to an Extended Care Facility is necessary for the continuing treatment of the diagnosis listed. The above information is true and accurate reflection of patient's current condition. Confidential - Redisclosure prohibited without a patient's written consent.
== END 2018-03-30 19:15 ==
LOC: 2ANU 11:04 → EMEROO 11:04 → SUATTDRO 14:04 → 2ANU 15:41
PROVIDERS: ADMIT Family Medicine; ATTEND Internal Medicine

== ENCOUNTER 2018-04-04 02:41 | Observation (INO) ==
[2018-04-04] MEDS ORDERED: Ondansetron 4 MG/2 ML VIAL IVP ONE (03:06)
[2018-04-04] MEDS ORDERED: 0.9 % Sodium Chloride 1,000 ML IVC ONE (03:06)
--- NOTE | 2018-04-04 03:12 | Emergency Department Note ---
Disposition Clinical Impression: ESRD (end stage renal disease) on dialysis, Abdominal pain with vomiting Infected decubitus ulcer Qualifiers: Pressure ulcer stage: unspecified pressure ulcer stage Qualified Code(s): L89.90 - Pressure ulcer of unspecified site, unspecified stage UTI (urinary tract infection) Qualifiers: Urinary tract infection type: acute cystitis Hematuria presence: with hematuria Qualified Code(s): N30.01 - Acute cystitis with hematuria Abdominal pain Qualifiers: Abdominal location: generalized Qualified Code(s): R10.84 - Generalized abdominal pain Hematemesis Qualifiers: Nausea presence: with nausea Qualified Code(s): K92.0 - Hematemesis Disposition: Admitted As Inpatient Condition: Good Time of Disposition: 07:15 General Adult HPI - General Stated complaint: N/V, Abdominal Pain Time Seen by Provider: 04/04/18 02:44 Source: patient, EMS Limitations: no limitations Nursing Notes Reviewed: Yes Vital Signs Reviewed: Yes - History of Present Illness HPI Narrative: 63-year-old female arrives via squad from her extended care facility. [facility] has reported that he recalled patient had had coffee ground colored emesis. Patient states that she has been vomiting 7 days. We will recently today she developed abdominal pain, and here in the department started to have chest pain. [facility] also reported that patient has had a recent pelvic fracture and is due for dialysis in the morning. Patient denies any shortness of breath, abdominal pain, confusion, fevers, chest pain. Pain Scale: 8 - Related Data Home Medications Medication Instructions Recorded Confirmed Omeprazole [PriLOSEC] 20 mg PO DAILY 05/11/15 04/04/18 Colestipol HCl [Colestid] 1 gm PO BID 06/12/15 04/04/18 Calcium Acetate [Phos-LO] 1,334 mg PO TIDWM 09/06/16 04/04/18 Folic Acid/Vit Bcomp,C [Renal 0.8 mg PO DAILY 04/15/17 04/04/18 Vitamin Tablet] ARIPiprazole [Abilify] 10 mg PO DAILY 09/13/17 04/04/18 Aspirin Enteric Coated [Aspirin EC] 81 mg PO DAILY 09/13/17 04/04/18 Budesonide/Formoterol 160/4.5 2 puff IH BIDR 09/13/17 04/04/18 [Symbicort 160/4.5] Cholecalciferol (Vitamin D3) 50,000 unit PO TH 09/13/17 04/04/18 [Vitamin D3] OxyCODONE/APAP 10/325 [Percocet 1 tab PO Q6H PRN 09/13/17 04/04/18 10/325 MG] Sennosides [Senna] 8.6 mg PO BID PRN 09/13/17 04/04/18 Sevelamer [Renvela] 800 mg PO TID 09/13/17 04/04/18 Albuterol Neb [AccuNeb] 0.63 mg IH Q6H PRN 10/18/17 04/04/18 Oxybutynin [Ditropan] 5 mg PO TID 11/11/17 04/04/18 Insulin LISPRO [Humalog Kwikpen 0 unit SQ ACHS 11/25/17 04/04/18 U-100] amLODIPine [Norvasc] 5 mg PO DAILY 12/30/17 04/04/18 Clopidogrel [Plavix] 75 mg PO DAILY 02/03/18 04/04/18 Rosuvastatin Calcium [Crestor] 20 mg PO DAILY 02/27/18 04/04/18 Insulin DETEMIR [Levemir] 40 unit SQ HS 04/04/18 04/04/18 metOLazone [Zaroxolyn] 5 mg PO DAILY 04/04/18 04/04/18 Previous Rx's Medication Instructions Recorded Acetaminophen [Tylenol] 650 mg PO Q6HR PRN tablet 12/14/17 Saccharomyces Boulardii [Florastor] 250 mg PO BID #20 capsule 02/09/18 Amitriptyline [Elavil] 50 mg PO HS tablet 03/24/18 Gabapentin [Neurontin] 100 mg PO TID 3 Days #10 capsule 03/24/18 Morphine Sulfate SR (12 HR) [MS 30 mg PO Q12HR 3 Days #6 03/24/18 Contin] Carvedilol [Coreg] 6.25 mg PO BIDWM tablet 03/30/18 Darbepoetin [Aranesp] 60 mcg SQ QWEEK syringe 03/30/18 Allergies Allergy/AdvReac Type Severity Reaction Status Date / Time No Known Allergies Allergy Verified 03/28/18 13:51 All systems ED: reviewed and negative except as stated. Review of Systems: As Per HPI Constitutional: Denies: fever, chills, weakness Eyes: Denies: eye discharge ENT ED: Denies: throat pain Cardiovascular: Reports: as per HPI. Denies: palpitations Respiratory: Reports: as per HPI. Denies: dyspnea Gastrointestinal: Reports: as per HPI. Denies: diarrhea Genitourinary: Denies: dysuria Musculoskeletal: Reports: as per HPI. Denies: back pain Neurological: Denies: headache, weakness Endocrine: Denies: fatigue Hematological/Lymphatic: Denies: easy bleeding Allergic/Immunologic: Denies: facial swelling Past Medical History - Past Medical History Medical history: Reports: atrial fibrillation, CHF, COPD, diabetes, myocardial infarction, renal disease Surgical history: Reports: angioplasty/stent, appendectomy, cholecystectomy, coronary bypass (CABG), hysterectomy, knee replacement, other, IVC filter Psychiatric history: Reports: anxiety, depression, schizophrenia, previous psychiatric hospitalization [employer] history: Reports: other - Social History Smoking Status: Current every day smoker Smokeless Tobacco Status: No Alcohol use: Reports: none Drug use: Reports: none Physical Exam - General Limitations: no limitations General appearance: alert - Head Head exam: normocephalic - Eye Eye exam: Present: EOMI - ENT ENT exam: mucous membranes moist - Neck Neck exam: Present: full ROM - Chest Chest inspection: Present: symmetric chest wall rise - Respiratory Respiratory exam: Absent: respiratory distress - Expanded Respiratory Exam Location: rhonchi: Left, Right - Cardiovascular Cardiovascular exam: Present: normal rhythm, tachycardia - Abdominal Exam Abdominal exam: Present: soft, tenderness Abdominal tenderness: Present: epigastrium, mild - Extremities Exam Extremities exam: Present: full ROM, normal capillary refill. Absent: tenderness - Back Exam Back exam: Present: full ROM. Absent: CVA tenderness (R), CVA tenderness (L) - Neurological Exam Neurological exam: Present: alert - Psychiatric Psychiatric exam: Present: normal mood, flat affect - Skin Skin exam: Present: warm, dry, intact, normal color. Absent: rash, cyanosis, diaphoresis Course Course Narrative: Patient is a 63-year-old female that arrives via squad from [facility] with complaint of coffee ground colored emesis. Patient also has a recent history of pelvic fracture, congestive heart failure, and end- stage renal disease. She is due for her dialysis in the morning. She denies any abdominal pain. She does have some mild epigastric pain. In this department she developed some chest pain. She is slightly tachycardic, but afebrile and otherwise her vitals within normal limits. - Reevaluation(s) Reevaluation #1: Reviewed labs with Dr. Mendenhall, specifically elevated white count of 29which has increased since last reading. CXR shows vascular congestion. She has having mild abdominal pain, and coffee-ground emesis. Responding to Zofran. Her vitals appear stable. We will plan cultures, urinalysis via straight cath, and admission Time: 05:30 Reevaluation #2: Discussed patient with hospitalist Dr. Menjivar, who is requesting CT scan of abdomen and pelvis. will plan irrigator head consult, abx, and guaiac testing, re- exam for possible decub. Due to shift change, care of this patient will be transferred over to day shift provider Robert Claire CNP. i did discuss the patient and treatment plan with Pamela. I expect patient will be admitted to hospitalist. Please see his documentation for details. Time: 07:10 Vital Signs Temperature 98.3 F 04/04/18 02:52 Pulse Rate 108 04/04/18 02:52 Respiratory Rate 14 04/04/18 02:52 Blood Pressure 106/57 04/04/18 02:52 O2 Sat by Pulse Oximetry 95 04/04/18 02:52 Temperature 98.3 F 04/04/18 02:52 Pulse Rate 91 04/04/18 11:06 Respiratory Rate 30 04/04/18 11:06 Blood Pressure 100/50 04/04/18 11:06 O2 Sat by Pulse Oximetry 94 04/04/18 11:06 Oxygen Delivery Oxygen Delivery Nasal Cannula Medical Decision Making - [facility] Narrative Medical decision making narrative: All Lab Results (24 Hours) 04/04/18 04/04/18 04/04/18 Range/Units 03:25 03:25 03:50 WBC 29.2 H D (4.3-11.1) K/mcL RBC 4.11 (3.82-4.97) M/mcL Hgb 10.9 L (11.5-15.4) g/dL Hct 35.0 L (35.3-44.9) % MCV 85.2 (83.0-100.0) fL MCH 26.5 L (28.0-33.3) pg MCHC 31.1 L (31.6-35.5) g/dL RDW 17.6 H (11.5-14.5) % Plt Count 226 (140-400) K/mcL MPV 10.7 (9.4-12.4) fL Seg Neutrophils % 96.0 % Band Neutrophils % 2.0 (0-4) % Lymphocytes % 2.0 % Neutrophils # 28.6 H (1.6-8.9) K/mcL Lymphocytes # 0.6 (0.6-4.6) K/mcL Platelet Estimate Normal (Normal) Sodium 127 L (136-145) mEq/L Potassium 4.8 (3.5-5.1) mEq/L Chloride 82 L (98-107) mEq/L Carbon Dioxide 32 H (23-29) mEq/L BUN 33 H (8-23) mg/dL Creatinine 3.93 H (0.60-1.20) mg/dL Est GFR ( Amer) 14 L (> 60) Est GFR (Non-Af Amer) 12 L (> 60) BUN/Creatinine Ratio 8 (6-26) Glucose 298 H (70-105) mg/dL POC Glucose (70-99) mg/dL Calculated Osmolality 282 (280-300) Lactic Acid 0.7 (0.5-2.2) mmol/L Calcium 9.1 (8.6-10.3) mg/dL Total Bilirubin 0.5 (0.3-1.0) mg/dL Direct Bilirubin 0.2 (0.0-0.2) mg/dL Indirect Bilirubin 0.3 (0.0-1.2) mg/dL AST 39 (13-39) Units/L ALT 8 (7-52) Units/L Alkaline Phosphatase 196 H (34-104) Units/L Troponin I < 0.03 (< 0.04) ng/mL Serum Total Protein 7.1 (6.4-8.9) g/dL Albumin 3.2 L (3.5-5.7) g/dL Globulin 3.9 H (2.4-3.5) g/dL Albumin/Globulin Ratio 0.8 L (1.1-2.2) Lipase 6 L (11-82) Units/L Urine Color (Yellow) Urine Clarity (Clear) Urine pH (5.0-8.0) pH Units Ur Specific Red Bud (1.010-1.025) Urine Protein (Neg-Trace) mg/dL Urine Glucose (UA) (Normal) mg/dL Urine Ketones (Negative) mg/dL Urine Blood (Negative) Urine Nitrite (Negative) Urine Bilirubin (Negative) Urine Urobilinogen (Normal) mg/dL Ur Leukocyte Esterase (Negative) Urine Microscopic RBC (0-3) per hpf Urine Microscopic WBC (0-3) per hpf Ur Squamous Epith Cells (None-Few) per lpf Urine Bacteria (None-Few) per hpf Ur Culture Indicated? (NO) Stool Occult Blood (Negative) 04/04/18 04/04/18 04/04/18 Range/Units 05:59 08:24 10:40 WBC (4.3-11.1) K/mcL RBC (3.82-4.97) M/mcL Hgb 9.1 L D (11.5-15.4) g/dL Hct 29.5 L (35.3-44.9) % MCV (83.0-100.0) fL MCH (28.0-33.3) pg MCHC (31.6-35.5) g/dL RDW (11.5-14.5) % Plt Count (140-400) K/mcL MPV (9.4-12.4) fL Seg Neutrophils % % Band Neutrophils % (0-4) % Lymphocytes % % Neutrophils # (1.6-8.9) K/mcL Lymphocytes # (0.6-4.6) K/mcL Platelet Estimate (Normal) Sodium (136-145) mEq/L Potassium (3.5-5.1) mEq/L Chloride (98-107) mEq/L Carbon Dioxide (23-29) mEq/L BUN (8-23) mg/dL Creatinine (0.60-1.20) mg/dL Est GFR ( Amer) (> 60) Est GFR (Non-Af Amer) (> 60) BUN/Creatinine Ratio (6-26) Glucose (70-105) mg/dL POC Glucose (70-99) mg/dL Calculated Osmolality (280-300) Lactic Acid (0.5-2.2) mmol/L Calcium (8.6-10.3) mg/dL Total Bilirubin (0.3-1.0) mg/dL Direct Bilirubin (0.0-0.2) mg/dL Indirect Bilirubin (0.0-1.2) mg/dL AST (13-39) Units/L ALT (7-52) Units/L Alkaline Phosphatase (34-104) Units/L Troponin I (< 0.04) ng/mL Serum Total Protein (6.4-8.9) g/dL Albumin (3.5-5.7) g/dL Globulin (2.4-3.5) g/dL Albumin/Globulin Ratio (1.1-2.2) Lipase (11-82) Units/L Urine Color Yellow (Yellow) Urine Clarity Turbid A (Clear) Urine pH 6.0 (5.0-8.0) pH Units Ur Specific Red Bud 1.017 (1.010-1.025) Urine Protein >=300 H (Neg-Trace) mg/dL Urine Glucose (UA) Normal (Normal) mg/dL Urine Ketones Trace H (Negative) mg/dL Urine Blood Large H (Negative) Urine Nitrite Negative (Negative) Urine Bilirubin Small H (Negative) Urine Urobilinogen Normal (Normal) mg/dL Ur Leukocyte Esterase Large H (Negative) Urine Microscopic RBC 15-30 H (0-3) per hpf Urine Microscopic WBC TNTC H (0-3) per hpf Ur Squamous Epith Cells Many H (None-Few) per lpf Urine Bacteria Many H (None-Few) per hpf Ur Culture Indicated? NO. A (NO) Stool Occult Blood Positive A (Negative) 04/04/18 04/04/18 Range/Units 12:02 12:25 WBC (4.3-11.1) K/mcL RBC (3.82-4.97) M/mcL Hgb 9.1 L (11.5-15.4) g/dL Hct 29.8 L (35.3-44.9) % MCV (83.0-100.0) fL MCH (28.0-33.3) pg MCHC (31.6-35.5) g/dL RDW (11.5-14.5) % Plt Count (140-400) K/mcL MPV (9.4-12.4) fL Seg Neutrophils % % Band Neutrophils % (0-4) % Lymphocytes % % Neutrophils # (1.6-8.9) K/mcL Lymphocytes # (0.6-4.6) K/mcL Platelet Estimate (Normal) Sodium (136-145) mEq/L Potassium (3.5-5.1) mEq/L Chloride (98-107) mEq/L Carbon Dioxide (23-29) mEq/L BUN (8-23) mg/dL Creatinine (0.60-1.20) mg/dL Est GFR ( Amer) (> 60) Est GFR (Non-Af Amer) (> 60) BUN/Creatinine Ratio (6-26) Glucose (70-105) mg/dL POC Glucose 285 H (70-99) mg/dL Calculated Osmolality (280-300) Lactic Acid (0.5-2.2) mmol/L Calcium (8.6-10.3) mg/dL Total Bilirubin (0.3-1.0) mg/dL Direct Bilirubin (0.0-0.2) mg/dL Indirect Bilirubin (0.0-1.2) mg/dL AST (13-39) Units/L ALT (7-52) Units/L Alkaline Phosphatase (34-104) Units/L Troponin I (< 0.04) ng/mL Serum Total Protein (6.4-8.9) g/dL Albumin (3.5-5.7) g/dL Globulin (2.4-3.5) g/dL Albumin/Globulin Ratio (1.1-2.2) Lipase (11-82) Units/L Urine Color (Yellow) Urine Clarity (Clear) Urine pH (5.0-8.0) pH Units Ur Specific Red Bud (1.010-1.025) Urine Protein (Neg-Trace) mg/dL Urine Glucose (UA) (Normal) mg/dL Urine Ketones (Negative) mg/dL Urine Blood (Negative) Urine Nitrite (Negative) Urine Bilirubin (Negative) Urine Urobilinogen (Normal) mg/dL Ur Leukocyte Esterase (Negative) Urine Microscopic RBC (0-3) per hpf Urine Microscopic WBC (0-3) per hpf Ur Squamous Epith Cells (None-Few) per lpf Urine Bacteria (None-Few) per hpf Ur Culture Indicated? (NO) Stool Occult Blood (Negative) Chest X-Ray 04/04/18 03:06 IMPRESSION: Central pulmonary vascular congestion. Mild central interstitial opacities, likely atelectasis. Stable blunted left costophrenic angle, likely scarring or trace pleural effusion. D/ / Thiago Maldonado / Thiago Maldonado Interpreting Provider: Thiago Maldonado Abdomen/Pelvis CT 04/04/18 07:08 IMPRESSION: 1. Chronic bibasilar pulmonary bronchitis/bronchiolitis. 2. Appropriate position of a right ureteral stent with no obstructing calculi identified. Mild right hydronephrosis with a small amount of air seen in the renal collecting system which has improved compared to the prior exam and may relate to instrumentation. Secondary infection cannot be excluded. 3. No evidence of bowel obstruction or perforation. 4. Stable borderline splenomegaly. D/ / 04/04/2018 08:12:46 Enmanuel Fermin MD / tremaine Interpreting Provider: Enmanuel Fermin MD - Medical Records Medical records reviewed: Yes I reviewed the patient's medical records. - Lab Data Lab results reviewed: Yes I reviewed the patient's lab results. Result diagrams: 04/04/18 12:02 04/04/18 03:25 Lab Results 04/04/18 04/04/18 04/04/18 Range/Units 03:25 03:25 03:50 WBC 29.2 H D (4.3-11.1) K/mcL RBC 4.11 (3.82-4.97) M/mcL Hgb 10.9 L (11.5-15.4) g/dL Hct 35.0 L (35.3-44.9) % MCV 85.2 (83.0-100.0) fL MCH 26.5 L (28.0-33.3) pg MCHC 31.1 L (31.6-35.5) g/dL RDW 17.6 H (11.5-14.5) % Plt Count 226 (140-400) K/mcL MPV 10.7 (9.4-12.4) fL Seg Neutrophils % 96.0 % Band Neutrophils % 2.0 (0-4) % Lymphocytes % 2.0 % Neutrophils # 28.6 H (1.6-8.9) K/mcL Lymphocytes # 0.6 (0.6-4.6) K/mcL Platelet Estimate Normal (Normal) Sodium 127 L (136-145) mEq/L Potassium 4.8 (3.5-5.1) mEq/L Chloride 82 L (98-107) mEq/L Carbon Dioxide 32 H (23-29) mEq/L BUN 33 H (8-23) mg/dL Creatinine 3.93 H (0.60-1.20) mg/dL Est GFR ( Amer) 14 L (> 60) Est GFR (Non-Af Amer) 12 L (> 60) BUN/Creatinine Ratio 8 (6-26) Glucose 298 H (70-105) mg/dL Calculated Osmolality 282 (280-300) Lactic Acid 0.7 (0.5-2.2) mmol/L Calcium 9.1 (8.6-10.3) mg/dL Total Bilirubin 0.5 (0.3-1.0) mg/dL Direct Bilirubin 0.2 (0.0-0.2) mg/dL Indirect Bilirubin 0.3 (0.0-1.2) mg/dL AST 39 (13-39) Units/L ALT 8 (7-52) Units/L Alkaline Phosphatase 196 H (34-104) Units/L Troponin I < 0.03 (< 0.04) ng/mL Serum Total Protein 7.1 (6.4-8.9) g/dL Albumin 3.2 L (3.5-5.7) g/dL Globulin 3.9 H (2.4-3.5) g/dL Albumin/Globulin Ratio 0.8 L (1.1-2.2) Lipase 6 L (11-82) Units/L Urine Color (Yellow) Urine Clarity (Clear) Urine pH (5.0-8.0) pH Units Ur Specific Red Bud (1.010-1.025) Urine Protein (Neg-Trace) mg/dL Urine Glucose (UA) (Normal) mg/dL Urine Ketones (Negative) mg/dL Urine Blood (Negative) Urine Nitrite (Negative) Urine Bilirubin (Negative) Urine Urobilinogen (Normal) mg/dL Ur Leukocyte Esterase (Negative) Urine Microscopic RBC (0-3) per hpf Urine Microscopic WBC (0-3) per hpf Ur Squamous Epith Cells (None-Few) per lpf Urine Bacteria (None-Few) per hpf Ur Culture Indicated? (NO) Stool Occult Blood (Negative) 04/04/18 04/04/18 Range/Units 05:59 08:24 WBC (4.3-11.1) K/mcL RBC (3.82-4.97) M/mcL Hgb (11.5-15.4) g/dL Hct (35.3-44.9) % MCV (83.0-100.0) fL MCH (28.0-33.3) pg MCHC (31.6-35.5) g/dL RDW (11.5-14.5) % Plt Count (140-400) K/mcL MPV (9.4-12.4) fL Seg Neutrophils % % Band Neutrophils % (0-4) % Lymphocytes % % Neutrophils # (1.6-8.9) K/mcL Lymphocytes # (0.6-4.6) K/mcL Platelet Estimate (Normal) Sodium (136-145) mEq/L Potassium (3.5-5.1) mEq/L Chloride (98-107) mEq/L Carbon Dioxide (23-29) mEq/L BUN (8-23) mg/dL Creatinine (0.60-1.20) mg/dL Est GFR ( Amer) (> 60) Est GFR (Non-Af Amer) (> 60) BUN/Creatinine Ratio (6-26) Glucose (70-105) mg/dL Calculated Osmolality (280-300) Lactic Acid (0.5-2.2) mmol/L Calcium (8.6-10.3) mg/dL Total Bilirubin (0.3-1.0) mg/dL Direct Bilirubin (0.0-0.2) mg/dL Indirect Bilirubin (0.0-1.2) mg/dL AST (13-39) Units/L ALT (7-52) Units/L Alkaline Phosphatase (34-104) Units/L Troponin I (< 0.04) ng/mL Serum Total Protein (6.4-8.9) g/dL Albumin (3.5-5.7) g/dL Globulin (2.4-3.5) g/dL Albumin/Globulin Ratio (1.1-2.2) Lipase (11-82) Units/L Urine Color Yellow (Yellow) Urine Clarity Turbid A (Clear) Urine pH 6.0 (5.0-8.0) pH Units Ur Specific Red Bud 1.017 (1.010-1.025) Urine Protein >=300 H (Neg-Trace) mg/dL Urine Glucose (UA) Normal (Normal) mg/dL Urine Ketones Trace H (Negative) mg/dL Urine Blood Large H (Negative) Urine Nitrite Negative (Negative) Urine Bilirubin Small H (Negative) Urine Urobilinogen Normal (Normal) mg/dL Ur Leukocyte Esterase Large H (Negative) Urine Microscopic RBC 15-30 H (0-3) per hpf Urine Microscopic WBC TNTC H (0-3) per hpf Ur Squamous Epith Cells Many H (None-Few) per lpf Urine Bacteria Many H (None-Few) per hpf Ur Culture Indicated? NO. A (NO) Stool Occult Blood Positive A (Negative) - Radiology Data Radiology results reviewed: Yes I reviewed the patient's radiology results. - EKG Data EKG #1 Rate: normal Rhythm: A.Fib Interpretation: no acute changes
[2018-04-04 03:41] LABS: Hemoglobin 10.9 g/dL (11.5-15.4); Mean Corpuscular HGB Conc 31.1 g/dL (31.6-35.5); Mean Corpuscular Hemoglobin 26.5 pg (28.0-33.3); Mean Corpuscular Volume 85.2 fL (83.0-100.0); Mean Platelet Volume 10.7 fL (9.4-12.4); Platelet Count 226 K/mcL (140-400); Red Blood Count 4.11 M/mcL (3.82-4.97); Red Cell Distribution Width 17.6 % (11.5-14.5)
[2018-04-04 04:13] LABS: Lymphocytes # 0.6 K/mcL (0.6-4.6); Neutrophils # 28.6 K/mcL (1.6-8.9); Platelet Estimate Normal (Normal)
[2018-04-04 04:19] LABS: BUN/Creatinine Ratio 8 (6-26); Blood Urea Nitrogen 33 mg/dL (8-23); Calcium 9.1 mg/dL (8.6-10.3); Carbon Dioxide 32 mEq/L (23-29); Chloride 82 mEq/L (98-107); Glucose 298 mg/dL (70-105); Lipase 6 Units/L (11-82); Osmolality,Calculated 282 (280-300); Potassium 4.8 mEq/L (3.5-5.1); Sodium 127 mEq/L (136-145); Troponin I < 0.03 ng/mL (< 0.04); eGFR For African Americans 14 (> 60); eGFR For Non-African Americans 12 (> 60)
[2018-04-04 05:44] LABS: Alanine Aminotransferase 8 Units/L (7-52); Albumin 3.2 g/dL (3.5-5.7); Albumin/Globulin Ratio 0.8 (1.1-2.2); Alkaline Phosphatase 196 Units/L (34-104); Aspartate Amino Transferase 39 Units/L (13-39); Bilirubin,Direct 0.2 mg/dL (0.0-0.2); Bilirubin,Indirect 0.3 mg/dL (0.0-1.2); Bilirubin,Total 0.5 mg/dL (0.3-1.0); Globulin 3.9 g/dL (2.4-3.5); Total Protein 7.1 g/dL (6.4-8.9)
[2018-04-04 06:06] LABS: Bilirubin,Urine Small (Negative); Blood,Urine Large (Negative); Clarity,Urine Turbid (Clear); Color,Urine Yellow (Yellow); Glucose,Urine (UA) Normal (Normal); Ketones,Urine Trace mg/dL (Negative); Leukocyte Esterase,Urine Large (Negative); Nitrite,Urine Negative (Negative); Protein,Urine >=300 mg/dL (Neg-Trace); Specific Gravity,Urine 1.017 (1.010-1.025); Urobilinogen,Urine Normal (Normal)
[2018-04-04 06:08] LABS: Bacteria,Urine Many per hpf (None-Few); RBC,Urine 15-30 per hpf (0-3); Squamous Epithelial Cell,Urine Many per lpf (None-Few); WBC,Urine TNTC per hpf (0-3)
--- NOTE | 2018-04-04 07:12 | Emergency Department Note ---
Disposition Clinical Impression: ESRD (end stage renal disease) on dialysis, Abdominal pain with vomiting CHF (congestive heart failure) Qualifiers: Heart failure type: unspecified Disposition: Admitted As Inpatient Condition: Good Referrals: Tristen Quintana MD [Primary Care Provider] - General Adult HPI - General Chief complaint: ED Abdominal Pain Stated complaint: N/V, Abdominal Pain Time Seen by Provider: 04/04/18 02:44 Source: patient, EMS Limitations: no limitations Nursing Notes Reviewed: Yes Vital Signs Reviewed: Yes - History of Present Illness Pain Scale: 8 - Related Data Home Medications Medication Instructions Recorded Confirmed Omeprazole [PriLOSEC] 20 mg PO DAILY 05/11/15 04/04/18 Colestipol HCl [Colestid] 1 gm PO BID 06/12/15 04/04/18 Calcium Acetate [Phos-LO] 1,334 mg PO TIDWM 09/06/16 04/04/18 Folic Acid/Vit Bcomp,C [Renal 0.8 mg PO DAILY 04/15/17 04/04/18 Vitamin Tablet] ARIPiprazole [Abilify] 10 mg PO DAILY 09/13/17 04/04/18 Aspirin Enteric Coated [Aspirin EC] 81 mg PO DAILY 09/13/17 04/04/18 Budesonide/Formoterol 160/4.5 2 puff IH BIDR 09/13/17 04/04/18 [Symbicort 160/4.5] Cholecalciferol (Vitamin D3) 50,000 unit PO TH 09/13/17 04/04/18 [Vitamin D3] OxyCODONE/APAP 10/325 [Percocet 1 tab PO Q6H PRN 09/13/17 04/04/18 10/325 MG] Sennosides [Senna] 8.6 mg PO BID PRN 09/13/17 04/04/18 Sevelamer [Renvela] 800 mg PO TID 09/13/17 04/04/18 Albuterol Neb [AccuNeb] 0.63 mg IH Q6H PRN 10/18/17 04/04/18 Oxybutynin [Ditropan] 5 mg PO TID 11/11/17 04/04/18 Insulin LISPRO [Humalog Kwikpen 0 unit SQ ACHS 11/25/17 04/04/18 U-100] amLODIPine [Norvasc] 5 mg PO DAILY 12/30/17 04/04/18 Clopidogrel [Plavix] 75 mg PO DAILY 02/03/18 04/04/18 Rosuvastatin Calcium [Crestor] 20 mg PO DAILY 02/27/18 04/04/18 Insulin DETEMIR [Levemir] 40 unit SQ HS 04/04/18 04/04/18 metOLazone [Zaroxolyn] 5 mg PO DAILY 04/04/18 04/04/18 Previous Rx's Medication Instructions Recorded Acetaminophen [Tylenol] 650 mg PO Q6HR PRN tablet 12/14/17 Saccharomyces Boulardii [Florastor] 250 mg PO BID #20 capsule 02/09/18 Amitriptyline [Elavil] 50 mg PO HS tablet 03/24/18 Gabapentin [Neurontin] 100 mg PO TID 3 Days #10 capsule 03/24/18 Morphine Sulfate SR (12 HR) [MS 30 mg PO Q12HR 3 Days #6 03/24/18 Contin] Carvedilol [Coreg] 6.25 mg PO BIDWM tablet 03/30/18 Darbepoetin [Aranesp] 60 mcg SQ QWEEK syringe 03/30/18 Allergies Allergy/AdvReac Type Severity Reaction Status Date / Time No Known Allergies Allergy Verified 03/28/18 13:51 Constitutional: Denies: fever, chills, weakness Eyes: Denies: eye discharge ENT ED: Denies: throat pain Cardiovascular: Reports: as per HPI. Denies: palpitations Respiratory: Denies: dyspnea Gastrointestinal: Denies: abdominal pain Genitourinary: Denies: dysuria Musculoskeletal: Denies: back pain Neurological: Denies: headache Psychiatric: Denies: anxiety Endocrine: Denies: fatigue Hematological/Lymphatic: Denies: easy bleeding Allergic/Immunologic: Denies: facial swelling Past Medical History - Past Medical History Medical history: Reports: atrial fibrillation, CHF, COPD, diabetes, myocardial infarction, renal disease Surgical history: Reports: angioplasty/stent, appendectomy, cholecystectomy, coronary bypass (CABG), hysterectomy, knee replacement, other, IVC filter Psychiatric history: Reports: anxiety, depression, schizophrenia, previous psychiatric hospitalization 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 - Social History Smoking Status: Current every day smoker Smokeless Tobacco Status: No Alcohol use: Reports: none Drug use: Reports: none Physical Exam - General Limitations: no limitations General appearance: alert Course Vital Signs Temperature 98.3 F 04/04/18 02:52 Pulse Rate 108 04/04/18 02:52 Respiratory Rate 14 04/04/18 02:52 Blood Pressure 106/57 04/04/18 02:52 O2 Sat by Pulse Oximetry 95 04/04/18 02:52 Temperature 98.3 F 04/04/18 02:52 Pulse Rate 94 04/04/18 06:47 Respiratory Rate 18 04/04/18 06:47 Blood Pressure 94/49 04/04/18 06:47 O2 Sat by Pulse Oximetry 98 04/04/18 06:47 Oxygen Delivery Oxygen Delivery Nasal Cannula Medical Decision Making - Lab Data Result diagrams: 04/04/18 03:25 04/04/18 03:25 Lab Results 04/04/18 04/04/18 04/04/18 Range/Units 03:25 03:25 03:50 WBC 29.2 H D (4.3-11.1) K/mcL RBC 4.11 (3.82-4.97) M/mcL Hgb 10.9 L (11.5-15.4) g/dL Hct 35.0 L (35.3-44.9) % MCV 85.2 (83.0-100.0) fL MCH 26.5 L (28.0-33.3) pg MCHC 31.1 L (31.6-35.5) g/dL RDW 17.6 H (11.5-14.5) % Plt Count 226 (140-400) K/mcL MPV 10.7 (9.4-12.4) fL Seg Neutrophils % 96.0 % Band Neutrophils % 2.0 (0-4) % Lymphocytes % 2.0 % Neutrophils # 28.6 H (1.6-8.9) K/mcL Lymphocytes # 0.6 (0.6-4.6) K/mcL Platelet Estimate Normal (Normal) Sodium 127 L (136-145) mEq/L Potassium 4.8 (3.5-5.1) mEq/L Chloride 82 L (98-107) mEq/L Carbon Dioxide 32 H (23-29) mEq/L BUN 33 H (8-23) mg/dL Creatinine 3.93 H (0.60-1.20) mg/dL Est GFR ( Amer) 14 L (> 60) Est GFR (Non-Af Amer) 12 L (> 60) BUN/Creatinine Ratio 8 (6-26) Glucose 298 H (70-105) mg/dL Calculated Osmolality 282 (280-300) Lactic Acid 0.7 (0.5-2.2) mmol/L Calcium 9.1 (8.6-10.3) mg/dL Total Bilirubin 0.5 (0.3-1.0) mg/dL Direct Bilirubin 0.2 (0.0-0.2) mg/dL Indirect Bilirubin 0.3 (0.0-1.2) mg/dL AST 39 (13-39) Units/L ALT 8 (7-52) Units/L Alkaline Phosphatase 196 H (34-104) Units/L Troponin I < 0.03 (< 0.04) ng/mL Serum Total Protein 7.1 (6.4-8.9) g/dL Albumin 3.2 L (3.5-5.7) g/dL Globulin 3.9 H (2.4-3.5) g/dL Albumin/Globulin Ratio 0.8 L (1.1-2.2) Lipase 6 L (11-82) Units/L Urine Color (Yellow) Urine Clarity (Clear) Urine pH (5.0-8.0) pH Units Ur Specific [place] (1.010-1.025) Urine Protein (Neg-Trace) mg/dL Urine Glucose (UA) (Normal) mg/dL Urine Ketones (Negative) mg/dL Urine Blood (Negative) Urine Nitrite (Negative) Urine Bilirubin (Negative) Urine Urobilinogen (Normal) mg/dL Ur Leukocyte Esterase (Negative) Urine Microscopic RBC (0-3) per hpf Urine Microscopic WBC (0-3) per hpf Ur Squamous Epith Cells (None-Few) per lpf Urine Bacteria (None-Few) per hpf Ur Culture Indicated? (NO) 04/04/18 Range/Units 05:59 WBC (4.3-11.1) K/mcL RBC (3.82-4.97) M/mcL Hgb (11.5-15.4) g/dL Hct (35.3-44.9) % MCV (83.0-100.0) fL MCH (28.0-33.3) pg MCHC (31.6-35.5) g/dL RDW (11.5-14.5) % Plt Count (140-400) K/mcL MPV (9.4-12.4) fL Seg Neutrophils % % Band Neutrophils % (0-4) % Lymphocytes % % Neutrophils # (1.6-8.9) K/mcL Lymphocytes # (0.6-4.6) K/mcL Platelet Estimate (Normal) Sodium (136-145) mEq/L Potassium (3.5-5.1) mEq/L Chloride (98-107) mEq/L Carbon Dioxide (23-29) mEq/L BUN (8-23) mg/dL Creatinine (0.60-1.20) mg/dL Est GFR ( Amer) (> 60) Est GFR (Non-Af Amer) (> 60) BUN/Creatinine Ratio (6-26) Glucose (70-105) mg/dL Calculated Osmolality (280-300) Lactic Acid (0.5-2.2) mmol/L Calcium (8.6-10.3) mg/dL Total Bilirubin (0.3-1.0) mg/dL Direct Bilirubin (0.0-0.2) mg/dL Indirect Bilirubin (0.0-1.2) mg/dL AST (13-39) Units/L ALT (7-52) Units/L Alkaline Phosphatase (34-104) Units/L Troponin I (< 0.04) ng/mL Serum Total Protein (6.4-8.9) g/dL Albumin (3.5-5.7) g/dL Globulin (2.4-3.5) g/dL Albumin/Globulin Ratio (1.1-2.2) Lipase (11-82) Units/L Urine Color Yellow (Yellow) Urine Clarity Turbid A (Clear) Urine pH 6.0 (5.0-8.0) pH Units Ur Specific [place] 1.017 (1.010-1.025) Urine Protein >=300 H (Neg-Trace) mg/dL Urine Glucose (UA) Normal (Normal) mg/dL Urine Ketones Trace H (Negative) mg/dL Urine Blood Large H (Negative) Urine Nitrite Negative (Negative) Urine Bilirubin Small H (Negative) Urine Urobilinogen Normal (Normal) mg/dL Ur Leukocyte Esterase Large H (Negative) Urine Microscopic RBC 15-30 H (0-3) per hpf Urine Microscopic WBC TNTC H (0-3) per hpf Ur Squamous Epith Cells Many H (None-Few) per lpf Urine Bacteria Many H (None-Few) per hpf Ur Culture Indicated? NO. A (NO) Critical Care Time Critical Care Time: No Attestation Statement - Attestation Attestation: I, Rommel Mendenhall MD, personally evaluated this patient and discussed their management with the midlevel provicer, PAC/DEDICATED DRIVER. I reviewed the midlevel provider 's note and agree with the documented findings, medical decision making, and plan of care. 63-year-old female presents to the emergency department from a local [place] [facility] facility for evaluation of multiple complaints. Patient complains of having nausea and vomiting for about a week. She complains of some mild crampy mid abdominal pain. Some of the emesis tonight has been coffee ground in appearance. No bright red blood. Patient has had some chills and unsure if she had a fever. She states her breathing has been a little worse than usual. On examination patient is a well-developed obese elderly female in no acute distress. She is alert and oriented 3. No cyanosis or diaphoresis. Breath sounds are equal bilaterally with coarse bilateral rales. Heart regular rate and rhythm with occasional ectopy. Abdomen is soft with increased bowel sounds. Mild mid abdominal tenderness. Labs reviewed. WBC 29.2 with 96% segs and 2% bands. Sodium 127. Urinalysis shows large leukocyte esterase with 15-30 RBCs and TNTC WBCs. Many bacteria. Urinalysis results similar to recent urinalysis results and previous to cultures have grown Escherichia coli which was resistant to everything except nitrofurantoin. Chest x-ray shows : Central pulmonary vascular congestion. Mild central interstitial opacities, likely atelectasis. Stable blunted left costophrenic angle, likely scarring or trace pleural effusion. The hospitalist and consulted for admission.
[2018-04-04] MEDS ORDERED: *HR* FentaNYL (PF) 100 MCG/2 ML VIAL IVP ONE (08:00)
--- NOTE | 2018-04-04 08:10 | Emergency Department Note ---
Disposition Clinical Impression: ESRD (end stage renal disease) on dialysis, Abdominal pain with vomiting Infected decubitus ulcer Qualifiers: Pressure ulcer stage: unspecified pressure ulcer stage Qualified Code(s): L89.90 - Pressure ulcer of unspecified site, unspecified stage UTI (urinary tract infection) Qualifiers: Urinary tract infection type: acute cystitis Hematuria presence: with hematuria Qualified Code(s): N30.01 - Acute cystitis with hematuria Abdominal pain Qualifiers: Abdominal location: generalized Qualified Code(s): R10.84 - Generalized abdominal pain Hematemesis Qualifiers: Nausea presence: with nausea Qualified Code(s): K92.0 - Hematemesis Disposition: Admitted As Inpatient Condition: Good Time of Disposition: 09:03 Abdominal Pain HPI - General Chief Complaint: ED Abdominal Pain Stated Complaint: N/V, Abdominal Pain Time Seen by Provider: 04/04/18 02:44 Source: patient, EMS - History of Present Illness Pain Scale: 9 - Related Data Home Medications Medication Instructions Recorded Confirmed Omeprazole [PriLOSEC] 20 mg PO DAILY 05/11/15 04/04/18 Colestipol HCl [Colestid] 1 gm PO BID 06/12/15 04/04/18 Calcium Acetate [Phos-LO] 1,334 mg PO TIDWM 09/06/16 04/04/18 Folic Acid/Vit Bcomp,C [Renal 0.8 mg PO DAILY 04/15/17 04/04/18 Vitamin Tablet] ARIPiprazole [Abilify] 10 mg PO DAILY 09/13/17 04/04/18 Aspirin Enteric Coated [Aspirin EC] 81 mg PO DAILY 09/13/17 04/04/18 Budesonide/Formoterol 160/4.5 2 puff IH BIDR 09/13/17 04/04/18 [Symbicort 160/4.5] Cholecalciferol (Vitamin D3) 50,000 unit PO TH 09/13/17 04/04/18 [Vitamin D3] OxyCODONE/APAP 10/325 [Percocet 1 tab PO Q6H PRN 09/13/17 04/04/18 10/325 MG] Sennosides [Senna] 8.6 mg PO BID PRN 09/13/17 04/04/18 Sevelamer [Renvela] 800 mg PO TID 09/13/17 04/04/18 Albuterol Neb [AccuNeb] 0.63 mg IH Q6H PRN 10/18/17 04/04/18 Oxybutynin [Ditropan] 5 mg PO TID 11/11/17 04/04/18 Insulin LISPRO [Humalog Kwikpen 0 unit SQ ACHS 11/25/17 04/04/18 U-100] amLODIPine [Norvasc] 5 mg PO DAILY 12/30/17 04/04/18 Clopidogrel [Plavix] 75 mg PO DAILY 02/03/18 04/04/18 Rosuvastatin Calcium [Crestor] 20 mg PO DAILY 02/27/18 04/04/18 Insulin DETEMIR [Levemir] 40 unit SQ HS 04/04/18 04/04/18 metOLazone [Zaroxolyn] 5 mg PO DAILY 04/04/18 04/04/18 Previous Rx's Medication Instructions Recorded Acetaminophen [Tylenol] 650 mg PO Q6HR PRN tablet 12/14/17 Saccharomyces Boulardii [Florastor] 250 mg PO BID #20 capsule 02/09/18 Amitriptyline [Elavil] 50 mg PO HS tablet 03/24/18 Gabapentin [Neurontin] 100 mg PO TID 3 Days #10 capsule 03/24/18 Morphine Sulfate SR (12 HR) [MS 30 mg PO Q12HR 3 Days #6 03/24/18 Contin] Carvedilol [Coreg] 6.25 mg PO BIDWM tablet 03/30/18 Darbepoetin [Aranesp] 60 mcg SQ QWEEK syringe 03/30/18 Allergies Allergy/AdvReac Type Severity Reaction Status Date / Time No Known Allergies Allergy Verified 03/28/18 13:51 Constitutional: Denies: fever, chills, weakness Eyes: Denies: eye discharge ENT ED: Denies: throat pain Cardiovascular: Reports: as per HPI. Denies: palpitations Respiratory: Denies: dyspnea Gastrointestinal: Denies: abdominal pain Genitourinary: Denies: dysuria Musculoskeletal: Denies: back pain Neurological: Denies: headache Psychiatric: Denies: anxiety Endocrine: Denies: fatigue Hematological/Lymphatic: Denies: easy bleeding Allergic/Immunologic: Denies: facial swelling Abdominal Pain PMH - Past Medical History Medical history: Reports: atrial fibrillation, CHF, COPD, diabetes, myocardial infarction, renal disease Female Surgical History: Reports: angioplasty/stent, appendectomy, cholecystectomy, coronary bypass (CABG), knee replacement, orthopedic, other, Tonsillectomy, 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 Absent: bloody stool, hemorrhoids, tenderness - Expanded Skin Exam Type of lesion: Present: other 1 - Approximate 1.5 cm x 2 cm states for decubitus ulcer noted that is approximately 1.5 cm deep. The wound is malodorous with slight surrounding cellulitis. Purulent drainage noted to the Mepilex dressing that was in place. Course Course Narrative: 719: I have assumed care of this patient from FLACA Tijerina due to mid-level shift change. Please see Breezy's documentation for care performed prior to my arrival. Briefly, this is a [id number]-year-old female that arrived by EMS from an outside extended care facility for evaluation of coffee-ground colored emesis and abdominal pain. She states that she has been vomiting for the past 7 days however the pain developed within the last day or so. She denied any fever. She denies any known aggravating or alleviating factors. Laboratory workup has been performed prior to my arrival. At this time, we are awaiting CT imaging of the abdomen and pelvis prior to admission to the hospitalist service. 0830: I have spoken with Dr. Askew, lumber sorter crayon molding machine operator as a courtesy to the hospitalist service, as the patient Wednesday dialysis patient Dr. Stone. Dr. Askew states the nephrology will be available for consult in house. 0900: I spoke with Dr. Berkowitz of the hospitalist services agreed to accept the patient for further observation and evaluation. He recommends the administration of vancomycin and Zosyn to cover both a urinary tract infection as well as probable infected decubitus ulcer. The patient was noted to become gradually more hypotensive throughout her stay. Gastroenterology was consult with an JD King with the gastroenterology group evaluated the patient here in the emergency department. She states that she does not feel the patient will require an emergent EGD however this will more than likely happen during the course of her inpatient stay. The patient did have a delta change in hemoglobin from 10.9 to 9.1. I discussed this with Dr. Valadez, who states that the patient does not require transfusion at this time. I have discussed this information with Dr. Berkowitz, hospitalist. 1125: Dr. Darden, ditching machine engineer crayon molding machine operator has had a bedside evaluation with the patient. He states that he we will prepare the patient for esophagogastroduodenoscopy. The patient will then be transported to the floor afterwards. Vital Signs Temperature 98.3 F 04/04/18 02:52 Pulse Rate 108 04/04/18 02:52 Respiratory Rate 14 04/04/18 02:52 Blood Pressure 106/57 04/04/18 02:52 O2 Sat by Pulse Oximetry 95 04/04/18 02:52 Temperature 98.3 F 04/04/18 02:52 Pulse Rate 91 04/04/18 11:06 Respiratory Rate 30 04/04/18 11:06 Blood Pressure 100/50 04/04/18 11:06 O2 Sat by Pulse Oximetry 94 04/04/18 11:06 Oxygen Delivery Oxygen Delivery Nasal Cannula Abdominal Pain - Medical Records Medical records reviewed: Yes I reviewed the patient's medical records. - Lab Data Lab results reviewed: Yes I reviewed the patient's lab results. Lab results narrative: Laboratory Last Values WBC 29.2 K/mcL (4.3-11.1) H D 04/04/18 03:25 RBC 4.11 M/mcL (3.82-4.97) 04/04/18 03:25 Hgb 10.9 g/dL (11.5-15.4) L 04/04/18 03:25 Hct 35.0 % (35.3-44.9) L 04/04/18 03:25 MCV 85.2 fL (83.0-100.0) 04/04/18 03:25 MCH 26.5 pg (28.0-33.3) L 04/04/18 03:25 MCHC 31.1 g/dL (31.6-35.5) L 04/04/18 03:25 RDW 17.6 % (11.5-14.5) H 04/04/18 03:25 Plt Count 226 K/mcL (140-400) 04/04/18 03:25 MPV 10.7 fL (9.4-12.4) 04/04/18 03:25 Seg Neutrophils % 96.0 % 04/04/18 03:25 Band Neutrophils % 2.0 % (0-4) 04/04/18 03:25 Lymphocytes % 2.0 % 04/04/18 03:25 Neutrophils # 28.6 K/mcL (1.6-8.9) H 04/04/18 03:25 Lymphocytes # 0.6 K/mcL (0.6-4.6) 04/04/18 03:25 Platelet Estimate Normal (Normal) 04/04/18 03:25 Sodium 127 mEq/L (136-145) L 04/04/18 03:25 Potassium 4.8 mEq/L (3.5-5.1) 04/04/18 03:25 Chloride 82 mEq/L (98-107) L 04/04/18 03:25 Carbon Dioxide 32 mEq/L (23-29) H 04/04/18 03:25 BUN 33 mg/dL (8-23) H 04/04/18 03:25 Creatinine 3.93 mg/dL (0.60-1.20) H 04/04/18 03:25 Est GFR ( Amer) 14 (> 60) L 04/04/18 03:25 Est GFR (Non-Af Amer) 12 (> 60) L 04/04/18 03:25 BUN/Creatinine Ratio 8 (6-26) 04/04/18 03:25 Glucose 298 mg/dL (70-105) H 04/04/18 03:25 Calculated Osmolality 282 (280-300) 04/04/18 03:25 Lactic Acid 0.7 mmol/L (0.5-2.2) 04/04/18 03:50 Calcium 9.1 mg/dL (8.6-10.3) 04/04/18 03:25 Total Bilirubin 0.5 mg/dL (0.3-1.0) 04/04/18 03:25 Direct Bilirubin 0.2 mg/dL (0.0-0.2) 04/04/18 03:25 Indirect Bilirubin 0.3 mg/dL (0.0-1.2) 04/04/18 03:25 AST 39 Units/L (13-39) 04/04/18 03:25 ALT 8 Units/L (7-52) 04/04/18 03:25 Alkaline Phosphatase 196 Units/L (34-104) H 04/04/18 03:25 Troponin I < 0.03 ng/mL (< 0.04) 04/04/18 03:25 Serum Total Protein 7.1 g/dL (6.4-8.9) 04/04/18 03:25 Albumin 3.2 g/dL (3.5-5.7) L 04/04/18 03:25 Globulin 3.9 g/dL (2.4-3.5) H 04/04/18 03:25 Albumin/Globulin Ratio 0.8 (1.1-2.2) L 04/04/18 03:25 Lipase 6 Units/L (11-82) L 04/04/18 03:25 Urine Color Yellow (Yellow) 04/04/18 05:59 Urine Clarity Turbid (Clear) A 04/04/18 05:59 Urine pH 6.0 pH Units (5.0-8.0) 04/04/18 05:59 Ur Specific [place] 1.017 (1.010-1.025) 04/04/18 05:59 Urine Protein >=300 mg/dL (Neg-Trace) H 04/04/18 05:59 Urine Glucose (UA) Normal mg/dL (Normal) 04/04/18 05:59 Urine Ketones Trace mg/dL (Negative) H 04/04/18 05:59 Urine Blood Large (Negative) H 04/04/18 05:59 Urine Nitrite Negative (Negative) 04/04/18 05:59 Urine Bilirubin Small (Negative) H 04/04/18 05:59 Urine Urobilinogen Normal mg/dL (Normal) 04/04/18 05:59 Ur Leukocyte Esterase Large (Negative) H 04/04/18 05:59 Urine Microscopic RBC 15-30 per hpf (0-3) H 04/04/18 05:59 Urine Microscopic WBC TNTC per hpf (0-3) H 04/04/18 05:59 Ur Squamous Epith Cells Many per lpf (None-Few) H 04/04/18 05:59 Urine Bacteria Many per hpf (None-Few) H 04/04/18 05:59 Ur Culture Indicated? NO. (NO) A 04/04/18 05:59 Result diagrams: 04/04/18 10:40 04/04/18 03:25 Lab Results 04/04/18 04/04/18 04/04/18 Range/Units 03:25 03:25 03:50 WBC 29.2 H D (4.3-11.1) K/mcL RBC 4.11 (3.82-4.97) M/mcL Hgb 10.9 L (11.5-15.4) g/dL Hct 35.0 L (35.3-44.9) % MCV 85.2 (83.0-100.0) fL MCH 26.5 L (28.0-33.3) pg MCHC 31.1 L (31.6-35.5) g/dL RDW 17.6 H (11.5-14.5) % Plt Count 226 (140-400) K/mcL MPV 10.7 (9.4-12.4) fL Seg Neutrophils % 96.0 % Band Neutrophils % 2.0 (0-4) % Lymphocytes % 2.0 % Neutrophils # 28.6 H (1.6-8.9) K/mcL Lymphocytes # 0.6 (0.6-4.6) K/mcL Platelet Estimate Normal (Normal) Sodium 127 L (136-145) mEq/L Potassium 4.8 (3.5-5.1) mEq/L Chloride 82 L (98-107) mEq/L Carbon Dioxide 32 H (23-29) mEq/L BUN 33 H (8-23) mg/dL Creatinine 3.93 H (0.60-1.20) mg/dL Est GFR ( Amer) 14 L (> 60) Est GFR (Non-Af Amer) 12 L (> 60) BUN/Creatinine Ratio 8 (6-26) Glucose 298 H (70-105) mg/dL Calculated Osmolality 282 (280-300) Lactic Acid 0.7 (0.5-2.2) mmol/L Calcium 9.1 (8.6-10.3) mg/dL Total Bilirubin 0.5 (0.3-1.0) mg/dL Direct Bilirubin 0.2 (0.0-0.2) mg/dL Indirect Bilirubin 0.3 (0.0-1.2) mg/dL AST 39 (13-39) Units/L ALT 8 (7-52) Units/L Alkaline Phosphatase 196 H (34-104) Units/L Troponin I < 0.03 (< 0.04) ng/mL Serum Total Protein 7.1 (6.4-8.9) g/dL Albumin 3.2 L (3.5-5.7) g/dL Globulin 3.9 H (2.4-3.5) g/dL Albumin/Globulin Ratio 0.8 L (1.1-2.2) Lipase 6 L (11-82) Units/L Urine Color (Yellow) Urine Clarity (Clear) Urine pH (5.0-8.0) pH Units Ur Specific [place] (1.010-1.025) Urine Protein (Neg-Trace) mg/dL Urine Glucose (UA) (Normal) mg/dL Urine Ketones (Negative) mg/dL Urine Blood (Negative) Urine Nitrite (Negative) Urine Bilirubin (Negative) Urine Urobilinogen (Normal) mg/dL Ur Leukocyte Esterase (Negative) Urine Microscopic RBC (0-3) per hpf Urine Microscopic WBC (0-3) per hpf Ur Squamous Epith Cells (None-Few) per lpf Urine Bacteria (None-Few) per hpf Ur Culture Indicated? (NO) Stool Occult Blood (Negative) 04/04/18 04/04/18 Range/Units 05:59 08:24 WBC (4.3-11.1) K/mcL RBC (3.82-4.97) M/mcL Hgb (11.5-15.4) g/dL Hct (35.3-44.9) % MCV (83.0-100.0) fL MCH (28.0-33.3) pg MCHC (31.6-35.5) g/dL RDW (11.5-14.5) % Plt Count (140-400) K/mcL MPV (9.4-12.4) fL Seg Neutrophils % % Band Neutrophils % (0-4) % Lymphocytes % % Neutrophils # (1.6-8.9) K/mcL Lymphocytes # (0.6-4.6) K/mcL Platelet Estimate (Normal) Sodium (136-145) mEq/L Potassium (3.5-5.1) mEq/L Chloride (98-107) mEq/L Carbon Dioxide (23-29) mEq/L BUN (8-23) mg/dL Creatinine (0.60-1.20) mg/dL Est GFR ( Amer) (> 60) Est GFR (Non-Af Amer) (> 60) BUN/Creatinine Ratio (6-26) Glucose (70-105) mg/dL Calculated Osmolality (280-300) Lactic Acid (0.5-2.2) mmol/L Calcium (8.6-10.3) mg/dL Total Bilirubin (0.3-1.0) mg/dL Direct Bilirubin (0.0-0.2) mg/dL Indirect Bilirubin (0.0-1.2) mg/dL AST (13-39) Units/L ALT (7-52) Units/L Alkaline Phosphatase (34-104) Units/L Troponin I (< 0.04) ng/mL Serum Total Protein (6.4-8.9) g/dL Albumin (3.5-5.7) g/dL Globulin (2.4-3.5) g/dL Albumin/Globulin Ratio (1.1-2.2) Lipase (11-82) Units/L Urine Color Yellow (Yellow) Urine Clarity Turbid A (Clear) Urine pH 6.0 (5.0-8.0) pH Units Ur Specific Printer 1.017 (1.010-1.025) Urine Protein >=300 H (Neg-Trace) mg/dL Urine Glucose (UA) Normal (Normal) mg/dL Urine Ketones Trace H (Negative) mg/dL Urine Blood Large H (Negative) Urine Nitrite Negative (Negative) Urine Bilirubin Small H (Negative) Urine Urobilinogen Normal (Normal) mg/dL Ur Leukocyte Esterase Large H (Negative) Urine Microscopic RBC 15-30 H (0-3) per hpf Urine Microscopic WBC TNTC H (0-3) per hpf Ur Squamous Epith Cells Many H (None-Few) per lpf Urine Bacteria Many H (None-Few) per hpf Ur Culture Indicated? NO. A (NO) Stool Occult Blood Positive A (Negative) - Radiology Data Radiology results reviewed: Yes I reviewed the patient's radiology results.
[2018-04-04] MEDS ORDERED: Piperacillin/Tazobactam 3.375 GM in 0.9 % Sodium Chloride Mini Bag 100 ML IVPB ONE (09:00)
[2018-04-04] MEDS ORDERED: 0.9 % Sodium Chloride 250 ML IVC PRN (09:08)
[2018-04-04] MEDS ORDERED: 0.9 % Sodium Chloride 1,000 ML PRIME SCH (09:15)
[2018-04-04] MEDS ORDERED: 0.9 % Sodium Chloride 500 ML IVC ONE (10:02)
[2018-04-04] MEDS ORDERED: 0.9 % Sodium Chloride 500 ML ONE (10:09)
[2018-04-04] MEDS ORDERED: Pantoprazole 40 MG VIAL IVP ONE (10:10)
[2018-04-04 10:49] LABS: Hematocrit 29.5 % (35.3-44.9); Hemoglobin 9.1 g/dL (11.5-15.4)
[2018-04-04] MEDS: Pantoprazole 40 MG in 0.9 % Sodium Chloride Mini Bag 100 ML IVC SCH ×3 (11:48→21:33)
[2018-04-04 12:12] LABS: Hematocrit 29.8 % (35.3-44.9); Hemoglobin 9.1 g/dL (11.5-15.4)
--- NOTE | 2018-04-04 12:20 | Nephrology Consult Note ---
Date of Encounter: 04/04/18 Time of Encounter: 12:10 Assessment and Plan (1) ESRD (end stage renal disease) on dialysis Current Visit: Yes Status: Chronic HD MWF at [place]. Renal dose all medications. Avoid nephrotoxins. Renal Diet. Renal Vitamins. HD ordered for today. (2) Abdominal pain with vomiting Current Visit: Yes Status: Acute Per primary. (3) Congestive heart failure Current Visit: Yes Status: Chronic Per primary team. Qualifiers: Heart failure type: unspecified Qualified Code(s): I50.9 - Heart failure, unspecified History of Present Illness - Reason for Consult Consult date: 04/04/18 end stage renal disease - Chief Complaint abdominal pain - History of Present Illness Ms. Riley is well known to the practice with ESRD, HD MWF at [facility]. Has been in/out of hospital several times in the past few months. PMH: atrial fibrillation, CHF, COPD, diabetes, myocardial infarction. Reports she has been nausea and vomiting for 7 days. Does reside at [facility] in [place]. She reports that emesis is coffee ground. Denies diarrhea, melena. Denies CP admits to some shortness of breath. Will manage HD for patient this stay. Past Med Surg Social Fam HX - Past Medical History Medical history: atrial fibrillation, CHF, COPD, diabetes, myocardial infarction , renal disease Additional medical history: no defecits from previous CVA Psychiatric history: anxiety, depression, schizophrenia, previous psychiatric hospitalization - Past Surgical History Surgical History: angioplasty/stent, appendectomy, cholecystectomy, coronary bypass (CABG), hysterectomy, knee replacement, other, IVC filter Additional surgical history: CABG 2002,BILAT KNEE REPLACEMENTS,TONSILLECTOMY,3- 4 CARDIAC STENTS, ORIF RT ARM - Social History Smoking Status: Current every day smoker Smokeless Tobacco Status: No Alcohol use: none Drug use: none - Family History Father Family Member Ethnicity: Non- Living Status: Hx Family Cardiac Disorders: Yes Hx Family Respiratory Disorders: Yes Hx Family Cancer: Yes (Polycythemia) Hx Family Endocrine Disorder: Yes (DM) Mother Family Member Ethnicity: Non- Living Status: Still Living Hx Family Cardiac Disorders: Yes Hx Family Respiratory Disorders: Yes (asthma, COPD) Brother Adopted: No Family Member Ethnicity: Non- Living Status: Still Living Hx Family Cardiac Disorders: No Hx Family Respiratory Disorders: No Hx Family Cancer: No Hx Family GI Disorders: No Hx Family Endocrine Disorder: No Hx Family Neuromuscular Disorders: No Hx Family Neurologic Disorders: No Hx Family HEENT Disorders: No Hx Family Autoimmune Disorders: No Sister Adopted: No Family Member Ethnicity: Non- Living Status: Still Living Hx Family Cardiac Disorders: Yes Hx Family Respiratory Disorders: No Hx Family Cancer: No Hx Family GI Disorders: No Hx Family Endocrine Disorder: Yes Hx Family Neuromuscular Disorders: No Hx Family Neurologic Disorders: No Hx Family HEENT Disorders: No Hx Family Autoimmune Disorders: No Medications and Allergies Omeprazole [PriLOSEC] 20 mg PO DAILY 05/11/15 [History] Colestipol HCl [Colestid] 1 gm PO BID 06/12/15 [History] Calcium Acetate [Phos-LO] 1,334 mg PO TIDWM 09/06/16 [History] Folic Acid/Vit Bcomp,C [Renal Vitamin Tablet] 0.8 mg PO DAILY 04/15/17 [History] ARIPiprazole [Abilify] 10 mg PO DAILY 09/13/17 [History] Aspirin Enteric Coated [Aspirin EC] 81 mg PO DAILY 09/13/17 [History] Budesonide/Formoterol 160/4.5 [Symbicort 160/4.5] 2 puff IH BIDR 09/13/17 [ History] Cholecalciferol (Vitamin D3) [Vitamin D3] 50,000 unit PO TH 09/13/17 [History] OxyCODONE/APAP 10/325 [Percocet 10/325 MG] 1 tab PO Q6H PRN 09/13/17 [History] Sennosides [Senna] 8.6 mg PO BID PRN 09/13/17 [History] Sevelamer [Renvela] 800 mg PO TID 09/13/17 [History] Albuterol Neb [AccuNeb] 0.63 mg IH Q6H PRN 10/18/17 [History] Oxybutynin [Ditropan] 5 mg PO TID 11/11/17 [History] Insulin LISPRO [Humalog Kwikpen U-100] 0 unit SQ ACHS 11/25/17 [History] Acetaminophen [Tylenol] 650 mg PO Q6HR PRN tablet 12/14/17 [Rx] amLODIPine [Norvasc] 5 mg PO DAILY 12/30/17 [History] Clopidogrel [Plavix] 75 mg PO DAILY 02/03/18 [History] Saccharomyces Boulardii [Florastor] 250 mg PO BID #20 capsule 02/09/18 [Rx] Rosuvastatin Calcium [Crestor] 20 mg PO DAILY 02/27/18 [History] Amitriptyline [Elavil] 50 mg PO HS tablet 03/24/18 [Rx] Gabapentin [Neurontin] 100 mg PO TID 3 Days #10 capsule 03/24/18 [Rx] Morphine Sulfate SR (12 HR) [MS Contin] 30 mg PO Q12HR 3 Days #6 03/24/18 [Rx] Carvedilol [Coreg] 6.25 mg PO BIDWM tablet 03/30/18 [Rx] Darbepoetin [Aranesp] 60 mcg SQ QWEEK syringe 03/30/18 [Rx] Insulin DETEMIR [Levemir] 40 unit SQ HS 04/04/18 [History] metOLazone [Zaroxolyn] 5 mg PO DAILY 04/04/18 [History] 3 Allergy/AdvReac Type Severity Reaction Status Date / Time No Known Allergies Allergy Verified 03/28/18 13:51 Review of Systems Constitutional: no chills, no fatigue, no fever(s) Cardiovascular: dyspnea, no chest pain Respiratory: no cough, no hemoptysis Gastrointestinal: nausea, vomiting, no diarrhea, no melena Exam - Vital Signs Vital signs: Initial Vital Signs Temp Pulse Resp BP Pulse Ox 98.3 F 108 14 106/57 95 04/04/18 02:52 04/04/18 02:52 04/04/18 02:52 04/04/18 02:52 04/04/18 02:52 Vital Signs - Last 8 Hours Pulse Resp BP Pulse Ox 04/04/18 11:06 91 30 100/50 94 04/04/18 10:01 98 103/41 04/04/18 09:59 97 21 87/47 93 Intake and Output 04/03/18 04/04/18 04/04/18 23:59 07:59 15:59 Intake Total 600 / 600 Balance 600 / 600 Intake: IV Fluids 600 / 600 0.9 % Sodium Chloride 500 ML @ 500 / 500 999 mls/hr IVC .Q31M ONE Rx#: [id number] Zosyn 3.375 GM In 0.9 % Sodium 100 / 100 Chloride (Mini-Bag +) 100 ML @ 25 mls/hr IVPB ONCE ONE Rx#: [id number] - General Appearance General appearance: well-developed, chronically ill, frail EENT: ATNC, hearing intact, vision intact Respiratory: course breath sounds, rhonchi Cardiology: no edema - Dialysis Access Dialysis Vascular Access: Arteriovenous Fistula thrill: Yes bruit: Yes Gastrointestinal: normoactive bowel sounds, tenderness, no guarding Integumentary: no rash, warm and dry Neurologic: alert and oriented x3 Psychiatric: mood/affect appropriate, cooperative Results - Lab Results 04/04/18 12:02 04/04/18 03:25 Most recent lab results Calcium 9.1 mg/dL (8.6-10.3) 04/04/18 03:25 Consult Discharge Plan - Plan Referrals: Tristen Quintana MD [Primary Care Provider] -
[2018-04-04] MEDS ORDERED: *HR* Propofol 200 MG/20 ML VIAL IVP ONE (12:42)
[2018-04-04] MEDS ORDERED: Lidocaine -MPF 2% 2 ML VIAL ONE (12:43)
--- NOTE | 2018-04-04 13:11 | Gastroenterology Consult Note ---
Date of Encounter: 04/04/18 Time of Encounter: 11:00 - Assessment and plan (1) Upper GI bleed Current Visit: Yes Status: Acute Assessment and plan: 63 year old female with multiple comorbidities who presented with nausea and vomiting coffee grounds, then dark red blood. Hgb has dropped from 10.9-9.1, will proceed with EGD today to rule out MW tear, esophagitis, gastritis, duodenitis, PUD or avm. She has been started on PPI and octreotide drips. (2) Sepsis Current Visit: No Status: Resolved Assessment and plan: WBC 30, pt has decubitus and UTI, is hypotensive and was tachycardic on admission. Cultures were sent and she was started on zosyn and vanco in the ER. Qualifiers: Sepsis type: sepsis due to unspecified organism Qualified Code(s): A41.9 - Sepsis, unspecified organism (3) Anemia Current Visit: No Status: Suspected Assessment and plan: Monitor CBC, transfuses as needed. EGD today Qualifiers: Anemia type: due to chronic kidney disease Chronic kidney disease stage: on chronic dialysis Qualified Code(s): N18.6 - End stage renal disease; D63.1 - Anemia in chronic kidney disease; D63.1 - Anemia in chronic kidney disease; Z99.2 - Dependence on renal dialysis; Z99.2 - Dependence on renal dialysis; Z99.2 - Dependence on renal dialysis; Z99.2 - Dependence on renal dialysis (4) ESRD on hemodialysis Current Visit: No Status: Chronic - Time Spent With Patient Total time spent is greater than 50% in coordination of care (as documented) at patient's floor/unit and/or counseling patient: GI History of Present Illness - Data of Consult Patient: new to practice Consult date: 04/04/18 Requesting Physician: Yuniel Menjivar MD - Consult Narrative Reason for consult: coffee ground emesis History of present illness: Ms. Riley is a 63 year old female with a past medical history of atrial fibrillation, CHF, COPD, diabetes, myocardial infarction, renal disease, previous CVA, anxiety, depression, schizophrenia, previous psychiatric hospitalization. She has ESRD and is on hemodialysis F. She was brought from [facility] for complains of abdominal pain, nausea and vomiting coffee ground emesis. She states she has had nausea for the past week, vomiting for the past 1-2 days. She reports sudden epigastric pain this morning. She had witness vomiting of dark red blood this am in the ER. She has been hypotensive with a BP of 88/ 47 and is receiving IV fluids. She also is being treated with IV antibiotics for Stage IV decubitous ulcer and UTI. WBC was 30. She reports EGD approximately 10 years ago, colonoscopy 2 years ago. She is on asa and plavix. She has coronary stents placed in 2016, she is on O2 at night. Past Med Surg Social Fam HX - Past Medical History Medical history: atrial fibrillation, CHF, COPD, diabetes, myocardial infarction , renal disease Additional medical history: no defecits from previous CVA Psychiatric history: anxiety, depression, schizophrenia, previous psychiatric hospitalization - Past Surgical History Surgical History: angioplasty/stent, appendectomy, cholecystectomy, coronary bypass (CABG), hysterectomy, knee replacement, other, IVC filter Additional surgical history: CABG 2002,BILAT KNEE REPLACEMENTS,TONSILLECTOMY,3- 4 CARDIAC STENTS, ORIF RT ARM - Social History Smoking Status: Current every day smoker Smokeless Tobacco Status: No Alcohol use: none Drug use: none - Family History Father Family Member Ethnicity: Non- Living Status: Hx Family Cardiac Disorders: Yes Hx Family Respiratory Disorders: Yes Hx Family Cancer: Yes (Polycythemia) Hx Family Endocrine Disorder: Yes (DM) Mother Family Member Ethnicity: Non- Living Status: Still Living Hx Family Cardiac Disorders: Yes Hx Family Respiratory Disorders: Yes (asthma, COPD) Brother Adopted: No Family Member Ethnicity: Non- Living Status: Still Living Hx Family Cardiac Disorders: No Hx Family Respiratory Disorders: No Hx Family Cancer: No Hx Family GI Disorders: No Hx Family Endocrine Disorder: No Hx Family Neuromuscular Disorders: No Hx Family Neurologic Disorders: No Hx Family HEENT Disorders: No Hx Family Autoimmune Disorders: No Sister Adopted: No Family Member Ethnicity: Non- Living Status: Still Living Hx Family Cardiac Disorders: Yes Hx Family Respiratory Disorders: No Hx Family Cancer: No Hx Family GI Disorders: No Hx Family Endocrine Disorder: Yes Hx Family Neuromuscular Disorders: No Hx Family Neurologic Disorders: No Hx Family HEENT Disorders: No Hx Family Autoimmune Disorders: No Review of Systems: GI: as per [place] GENERAL: denies fever, has some chills EYES: denies yellow discoloration ENT: denies pain with swallowing or difficulty swallowing CARDIO: denies chest pain, palpitations RESP: Shortness of breath with exertion : denies change in color of urine NEURO: weakness HEME: Denies any bruising MS: chronic back and joint pain. DERM: denies rash or itching PSYCH: history of anxiety and depression - Constitutional Vitals: Temp Pulse Resp BP Pulse Ox 98.3 F 87 18 95/60 99 04/04/18 12:56 04/04/18 12:56 04/04/18 12:56 04/04/18 12:56 04/04/18 12:56 Exam: CONSTITUTIONAL:~alert, no acute distress.~HEAD:~normocephalic.~EYES:~no jaundice.~NECK:~no obvious swelling.~HEART:~regular rate and rhythm, no murmurs. ~LUNGS:~crackles bilaterally.~ABDOMEN:~non distended, soft, tender epigastric area, no masses palpable, no organomegaly.~RECTAL EXAM:~Deferred.~EXTREMITIES:~ no clubbing, cyanosis or 1+ BLE edema, LUE fistula~SKIN:~pallor noted, no stigmata of chronic liver disease.~NEUROLOGIC:~no obvious focal defect.~~~~ Results - Labs CBC & Chem 7: 04/04/18 12:02 04/04/18 03:25 Labs: Last Result Calcium 9.1 mg/dL (8.6-10.3) 04/04/18 03:25 Troponin I < 0.03 ng/mL (< 0.04) 04/04/18 03:25 Stool Occult Blood Positive (Negative) A 04/04/18 08:24 Entire Visit Hgb 9.1 g/dL (11.5-15.4) L 04/04/18 12:02 Hct 29.8 % (35.3-44.9) L 04/04/18 12:02 Total Bilirubin 0.5 mg/dL (0.3-1.0) 04/04/18 03:25 AST 39 Units/L (13-39) 04/04/18 03:25 ALT 8 Units/L (7-52) 04/04/18 03:25 Lipase 6 Units/L (11-82) L 04/04/18 03:25 Consult Discharge Plan - Plan Referrals: Tristen Quintana MD [Primary Care Provider] -
[2018-04-04] MEDS: 0.9 % Sodium Chloride 500 ML IVC ONE (13:15)
--- NOTE | 2018-04-04 13:56 | Anesthesia Evaluation PreOp ---
Date of Encounter: 04/04/18 Time of Encounter: 13:54 - Past History Planned Operation: EGD Cardiac History: [place], CHF, Arrhythmia (hx a-fib), Cardiac Surgery (CABG 2002), Cardiac Stent (3-4) Pulmonary History: Smoker, COPD [employer] History: CVA (no deficit, schizophrenia, anxiety) Other Medical History: Renal (ESRD on HD, last HD -), Diabetes Type II, GERD Anesthesia History: No Prior Anesthetic Complications, Past Anesthesia (CABG, LUIS, TKA, appy, maira, ivc filter) Alcohol Use: none Drug use: none Medications and Allergies Omeprazole [PriLOSEC] 20 mg PO DAILY 05/11/15 [History] Colestipol HCl [Colestid] 1 gm PO BID 06/12/15 [History] Calcium Acetate [Phos-LO] 1,334 mg PO TIDWM 09/06/16 [History] Folic Acid/Vit Bcomp,C [Renal Vitamin Tablet] 0.8 mg PO DAILY 04/15/17 [History] ARIPiprazole [Abilify] 10 mg PO DAILY 09/13/17 [History] Aspirin Enteric Coated [Aspirin EC] 81 mg PO DAILY 09/13/17 [History] Budesonide/Formoterol 160/4.5 [Symbicort 160/4.5] 2 puff IH BIDR 09/13/17 [ History] Cholecalciferol (Vitamin D3) [Vitamin D3] 50,000 unit PO TH 09/13/17 [History] OxyCODONE/APAP 10/325 [Percocet 10/325 MG] 1 tab PO Q6H PRN 09/13/17 [History] Sennosides [Senna] 8.6 mg PO BID PRN 09/13/17 [History] Sevelamer [Renvela] 800 mg PO TID 09/13/17 [History] Albuterol Neb [AccuNeb] 0.63 mg IH Q6H PRN 10/18/17 [History] Oxybutynin [Ditropan] 5 mg PO TID 11/11/17 [History] Insulin LISPRO [Humalog Kwikpen U-100] 0 unit SQ ACHS 11/25/17 [History] Acetaminophen [Tylenol] 650 mg PO Q6HR PRN tablet 12/14/17 [Rx] amLODIPine [Norvasc] 5 mg PO DAILY 12/30/17 [History] Clopidogrel [Plavix] 75 mg PO DAILY 02/03/18 [History] Saccharomyces Boulardii [Florastor] 250 mg PO BID #20 capsule 02/09/18 [Rx] Rosuvastatin Calcium [Crestor] 20 mg PO DAILY 02/27/18 [History] Amitriptyline [Elavil] 50 mg PO HS tablet 03/24/18 [Rx] Gabapentin [Neurontin] 100 mg PO TID 3 Days #10 capsule 03/24/18 [Rx] Morphine Sulfate SR (12 HR) [MS Contin] 30 mg PO Q12HR 3 Days #6 03/24/18 [Rx] Carvedilol [Coreg] 6.25 mg PO BIDWM tablet 03/30/18 [Rx] Darbepoetin [Aranesp] 60 mcg SQ QWEEK syringe 03/30/18 [Rx] Insulin DETEMIR [Levemir] 40 unit SQ HS 04/04/18 [History] metOLazone [Zaroxolyn] 5 mg PO DAILY 04/04/18 [History] 3 Allergy/AdvReac Type Severity Reaction Status Date / Time No Known Allergies Allergy Verified 03/28/18 13:51 - Meds/Allergy Pre-op Review Medications Reviewed: Yes Allergies Reviewed: Yes Beta Blockers on Current Med List: No Anesthesia Results - Labs 04/04/18 12:02 04/04/18 03:25 - Imaging EKG: report reviewed (afib with rvr) Additional studies: Patient had a sodium of 132 on last visit 5 days ago, today Na+ is 127. Patient is alert and heart is in regular rhythm currently. Anesthesia Exam Selected Entries 04/04/18 12:56 04/04/18 13:20 Temperature 98.3 F Pulse Rate 87 Pulse Rhythm Regular Respiratory Rate 18 Blood Pressure 95/60 O2 Sat by Pulse Oximetry 99 Oxygen Flow Rate (LPM) 2 Oxygen Delivery Method Nasal Cannula Weight: 96kg - HEENT Pupil (Motor): EOMI Mallampati: II Teeth: Edentulous Oral Opening: Greater than 3 - [employer] LOC: Oriented [employer] Motor: Normal RUE, Normal LUE, Normal RLE, Normal LLE, Normal Face [employer] Sensory: Normal: RUE, LUE, RLE, LLE, Face - Cardiac Rhythm: Regular Murmur: None - Pulmonary Breath Sounds: bilateral Rhonchi Respiratory Effort: Symmetrical Anesthesia Assess/Plan ASA Score: 4 Modified Lisa Scale for Level of Consciousness: Cooperative, oriented, and tranquil Anesthetic Plan: MAC Monitoring Plan: Standard Monitors Recovery Plan: Other (agrees to MAC or GA)
--- NOTE | 2018-04-04 15:03 | Internal Med History&Physical ---
Date of Encounter: 04/04/18 Time of Encounter: 10:00 Internal Medicine - H&P: HPI Chief complaint: Nausea/vomiting Admitted From: Home Plans for Post Hospital Care: Home History of present illness: Patient is a 63-year-old female with past medical history significant for stage III sacral pressure ulcer, diabetes, CKD stage IV and history of ESBL UTI who presents to the ER on 04/04/18 due to nausea and vomiting. Patient reports an 8 day history of nausea/vomiting and hematemesis for the last 3-4 days and decided to come to the ER for evaluation. In the ER, patient was found to be hypotensive and tachycardic with leukocytosis and (white blood cell count 29.2). Patient also found to have acute on chronic kidney disease. Patient will be admitted to medical surgical floor for hematemesis with leukocytosis Past Med Surg Social Fam HX - Past Medical History Medical history: atrial fibrillation, CHF, COPD, diabetes, myocardial infarction , renal disease Additional medical history: no defecits from previous CVA Psychiatric history: anxiety, depression, schizophrenia, previous psychiatric hospitalization - Past Surgical History Surgical History: angioplasty/stent, appendectomy, cholecystectomy, coronary bypass (CABG), hysterectomy, knee replacement, other, IVC filter Additional surgical history: CABG 2002,BILAT KNEE REPLACEMENTS,TONSILLECTOMY,3- 4 CARDIAC STENTS, ORIF RT ARM - Social History Smoking Status: Current every day smoker Smokeless Tobacco Status: No Alcohol use: none Drug use: none - Family History Father Family Member Ethnicity: Non- Living Status: Hx Family Cardiac Disorders: Yes Hx Family Respiratory Disorders: Yes Hx Family Cancer: Yes (Polycythemia) Hx Family Endocrine Disorder: Yes (DM) Mother Family Member Ethnicity: Non- Living Status: Still Living Hx Family Cardiac Disorders: Yes Hx Family Respiratory Disorders: Yes (asthma, COPD) Brother Adopted: No Family Member Ethnicity: Non- Living Status: Still Living Hx Family Cardiac Disorders: No Hx Family Respiratory Disorders: No Hx Family Cancer: No Hx Family GI Disorders: No Hx Family Endocrine Disorder: No Hx Family Neuromuscular Disorders: No Hx Family Neurologic Disorders: No Hx Family HEENT Disorders: No Hx Family Autoimmune Disorders: No Sister Adopted: No Family Member Ethnicity: Non- Living Status: Still Living Hx Family Cardiac Disorders: Yes Hx Family Respiratory Disorders: No Hx Family Cancer: No Hx Family GI Disorders: No Hx Family Endocrine Disorder: Yes Hx Family Neuromuscular Disorders: No Hx Family Neurologic Disorders: No Hx Family HEENT Disorders: No Hx Family Autoimmune Disorders: No Internal Medicine - H&P: Meds Omeprazole [PriLOSEC] 20 mg PO DAILY 05/11/15 [History] Colestipol HCl [Colestid] 1 gm PO BID 06/12/15 [History] Calcium Acetate [Phos-LO] 1,334 mg PO TIDWM 09/06/16 [History] Folic Acid/Vit Bcomp,C [Renal Vitamin Tablet] 0.8 mg PO DAILY 04/15/17 [History] ARIPiprazole [Abilify] 10 mg PO DAILY 09/13/17 [History] Aspirin Enteric Coated [Aspirin EC] 81 mg PO DAILY 09/13/17 [History] Budesonide/Formoterol 160/4.5 [Symbicort 160/4.5] 2 puff IH BIDR 09/13/17 [ History] Cholecalciferol (Vitamin D3) [Vitamin D3] 50,000 unit PO TH 09/13/17 [History] OxyCODONE/APAP 10/325 [Percocet 10/325 MG] 1 tab PO Q6H PRN 09/13/17 [History] Sennosides [Senna] 8.6 mg PO BID PRN 09/13/17 [History] Sevelamer [Renvela] 800 mg PO TID 09/13/17 [History] Albuterol Neb [AccuNeb] 0.63 mg IH Q6H PRN 10/18/17 [History] Oxybutynin [Ditropan] 5 mg PO TID 11/11/17 [History] Insulin LISPRO [Humalog Kwikpen U-100] 0 unit SQ ACHS 11/25/17 [History] Acetaminophen [Tylenol] 650 mg PO Q6HR PRN tablet 12/14/17 [Rx] amLODIPine [Norvasc] 5 mg PO DAILY 12/30/17 [History] Clopidogrel [Plavix] 75 mg PO DAILY 02/03/18 [History] Saccharomyces Boulardii [Florastor] 250 mg PO BID #20 capsule 02/09/18 [Rx] Rosuvastatin Calcium [Crestor] 20 mg PO DAILY 02/27/18 [History] Amitriptyline [Elavil] 50 mg PO HS tablet 03/24/18 [Rx] Gabapentin [Neurontin] 100 mg PO TID 3 Days #10 capsule 03/24/18 [Rx] Morphine Sulfate SR (12 HR) [MS Contin] 30 mg PO Q12HR 3 Days #6 03/24/18 [Rx] Carvedilol [Coreg] 6.25 mg PO BIDWM tablet 03/30/18 [Rx] Darbepoetin [Aranesp] 60 mcg SQ QWEEK syringe 03/30/18 [Rx] Insulin DETEMIR [Levemir] 40 unit SQ HS 04/04/18 [History] metOLazone [Zaroxolyn] 5 mg PO DAILY 04/04/18 [History] 3 Allergy/AdvReac Type Severity Reaction Status Date / Time No Known Allergies Allergy Verified 03/28/18 13:51 All Systems PM: A 10-system review of systems was performed and is negative for pertinent findings except as documented above in the HPI. - Constitutional Vitals: Temp Pulse Resp BP Pulse Ox 97.7 F 91 16 83/43 99 04/04/18 13:48 04/04/18 13:48 04/04/18 13:48 04/04/18 13:48 04/04/18 13:48 General appearance: Present: no acute distress - Eye Eye exam: Present: normal appearance - ENT ENT exam: Present: mucous membranes moist - Respiratory Respiratory exam: Present: CTAB. Absent: accessory muscle use, rales, rhonchi, wheezes - Cardiovascular Cardiovascular exam: Present: RRR, +S1, +S2. Absent: diastolic murmur, gallop, rubs, systolic murmur - GI/Abdominal GI/Abdominal exam: Present: normal bowel sounds, soft, tenderness (Epigastric tenderness to palpation), no peritoneal signs. Absent: distended - Extremities Exam Extremities exam: Absent: pedal edema - Neurological Exam Neurological exam: Present: oriented X3 - Psychiatric Psychiatric exam: Present: normal mood - Skin Skin exam: Present: normal color Internal Med - H&P Results - Labs CBC & Chem 7: 04/04/18 12:02 04/04/18 03:25 Labs: Short CBC 04/04/18 04/04/18 Range/Units 10:40 12:02 Hgb 9.1 L D 9.1 L (11.5-15.4) g/dL Hct 29.5 L 29.8 L (35.3-44.9) % - Assessment and plan (1) Hematemesis Current Visit: Yes Status: Acute Assessment and plan: Patient reports an 8 day history of nausea/vomiting and hematemesis for the last 3-4 days During my exam patient had gross hematemesis She was started on octreotide drip and Protonix infusion GI was consulted and patient was taken for EGD Qualifiers: Nausea presence: with nausea Qualified Code(s): K92.0 - Hematemesis (2) Abdominal pain with vomiting Current Visit: Yes Status: Acute Assessment and plan: Patient with epigastric pain on examination in addition to hematemesis as above GI consulted and patient taken for EGD as above (3) Leukocytosis Current Visit: No Status: Resolved Assessment and plan: Patient with white blood cell count of 29.2 Suspect could be secondary to stage IV decubitus sacral ulcer Wound cultures taken in the ER as well as blood cultures Continue IV Zosyn and IV vancomycin started in the ER Infectious disease consulted and appreciate recommendations Qualifiers: Leukocytosis type: unspecified Qualified Code(s): D72.829 - Elevated white blood cell count, unspecified (4) Sacral decubitus ulcer, stage II Current Visit: No Status: Acute Assessment and plan: Wound culture taken from the ER Will continue vancomycin and Zosyn ID consulted as above and appreciate recommendations (5) ESRD (end stage renal disease) on dialysis Current Visit: Yes Status: Chronic Assessment and plan: Nephrology consulted for management (6) Anemia in chronic kidney disease, on chronic dialysis Current Visit: No Status: Chronic Assessment and plan: Nephrology consulted for management (7) DVT prophylaxis Current Visit: No Status: Acute Assessment and plan: SCDs - Time Spent With Patient Total time spent is greater than 50% in coordination of care (as documented) at patient's floor/unit and/or counseling patient:
[2018-04-04] MEDS: Octreotide 400 MCG in 0.9 % Sodium Chloride 100 ML IVC SCH ×2 (15:31→17:29)
[2018-04-04] MEDS ORDERED: Naloxone 0.4 MG/ML INJ IVP PRN (15:45)
[2018-04-04] MEDS ORDERED: Sennosides 8.6 MG TABLET PO PRN (15:50)
[2018-04-04] MEDS ORDERED: Acetaminophen 325 MG TABLET PO PRN (15:50)
[2018-04-04] MEDS ORDERED: *HR* OxyCODONE/APAP 10/325 TABLET PO PRN (15:50)
[2018-04-04] MEDS ORDERED: Albuterol Neb 0.63 MG/3 ML VIAL IH PRN (15:50)
[2018-04-04 15:57] LABS: Hematocrit 27.7 % (35.3-44.9); Hemoglobin 8.5 g/dL (11.5-15.4)
--- NOTE | 2018-04-04 16:20 | Electrocardiograph Report ---
[address] [place], [place] [address] Test Date: 2018-04-04 Pat Name: Lynnette Riley Department: 104 Room: 2A47 Gender: F Handle Sewer: VANGIE : 1955 Requested By: Breezy Beltran Order Number: [id number] Reading MD: Laisha Shepherd Measurements Intervals [place] Rate: 103 P: OK: 0 QRS: 82 QRSD: 92 T: -43 QT: 342 QTc: 401 Interpretive Statements ATRIAL FIBRILLATION WITH RAPID VENTRICULAR RESPONSE ST DEVIATION AND MODERATE T-WAVE ABNORMALITY, CONSIDER LATERAL ISCHEMIA Electronically Signed On 04-04-2018 16:19:25 EDT by Laisha Shepherd
--- NOTE | 2018-04-04 16:24 | Electrocardiograph Report ---
[place] [address] Test Date: 2018-04-04 Pat Name: Lynnette Riley Department: 104 Room: 2A47 Gender: F Shallot Packer: : 1955 Requested By: Robert Claire Order Number: [id number] Reading MD: Laisha Shepherd Measurements Intervals [place] Rate: 102 P: [place]: 0 QRS: 96 QRSD: 102 T: -23 QT: 376 QTc: 435 Interpretive Statements ATRIAL FIBRILLATION WITH RAPID VENTRICULAR RESPONSE BORDERLINE RIGHT AXIS DEVIATION NONSPECIFIC ST & T-WAVE ABNORMALITY Electronically Signed On 04-04-2018 16:23:04 EDT by Laisha Shepherd
[2018-04-04] MEDS: Calcium Acetate 667 MG CAPSULE PO SCH (16:55)
[2018-04-04] MEDS ORDERED: Piperacillin/Tazobactam 3.375 GM in 0.9 % Sodium Chloride Mini Bag 100 ML IVPB SCH ×2 (17:00→21:00)
[2018-04-04] MEDS: *HR* Morphine Sulfate SR (12 HR) 30 MG TABLET.ER PO SCH (17:10)
[2018-04-04] MEDS: Budesonide/Formoterol 160/4.5 MDI IH SCH (19:39)
[2018-04-04] MEDS ORDERED: (Colestipol Hcl [Colestid] 1 GM) PO SCH (21:00)
[2018-04-04] MEDS ORDERED: (Saccharomyces Boulardii [Florastor] 250 MG) PO SCH (21:00)
[2018-04-04] MEDS: Gabapentin 100 MG CAPSULE PO SCH (21:34)
[2018-04-04] MEDS: Insulin DETEMIR 100 UNIT/ML X5UNITS SQ SCH (22:00)
[2018-04-05] MEDS: Pantoprazole 40 MG in 0.9 % Sodium Chloride Mini Bag 100 ML IVC SCH ×3 (02:20→11:07)
[2018-04-05] MEDS ORDERED: Insulin LISPRO 300 UNITS/3 ML VIAL SQ ONE (02:30)
[2018-04-05] MEDS: Insulin LISPRO 300 UNITS/3 ML VIAL SQ SCH ×4 (02:31→21:36)
[2018-04-05] MEDS: Octreotide 400 MCG in 0.9 % Sodium Chloride 100 ML IVC SCH (02:46)
[2018-04-05 04:28] LABS: Basophils % 0.3 %; Eosinophils # 0.2 K/mcL (0.0-0.6); Eosinophils % 1.4 %; Hemoglobin 8.6 g/dL (11.5-15.4); Lymphocytes # 2.1 K/mcL (0.6-4.6); Lymphocytes % 14.2 %; Mean Corpuscular HGB Conc 30.7 g/dL (31.6-35.5); Mean Corpuscular Hemoglobin 27.5 pg (28.0-33.3); Mean Corpuscular Volume 89.5 fL (83.0-100.0); Mean Platelet Volume 10.5 fL (9.4-12.4); Monocytes # 0.7 K/mcL (0.0-1.3); Monocytes % 4.8 %; Neutrophils # 11.5 K/mcL (1.6-8.9); Platelet Count 170 K/mcL (140-400); Red Blood Count 3.13 M/mcL (3.82-4.97); Red Cell Distribution Width 17.2 % (11.5-14.5); Segmented Neutrophils % 78.3 %
[2018-04-05 04:40] LABS: BUN/Creatinine Ratio 10 (6-26); Blood Urea Nitrogen 46 mg/dL (8-23); Calcium 8.3 mg/dL (8.6-10.3); Carbon Dioxide 24 mEq/L (23-29); Chloride 95 mEq/L (98-107); Glucose 266 mg/dL (70-105); Osmolality,Calculated 287 (280-300); Potassium 4.2 mEq/L (3.5-5.1); Sodium 128 mEq/L (136-145); eGFR For African Americans 12 (> 60); eGFR For Non-African Americans 10 (> 60)
[2018-04-05 04:41] LABS: Troponin I < 0.03 ng/mL (< 0.04)
[2018-04-05] MEDS: *HR* Morphine Sulfate SR (12 HR) 30 MG TABLET.ER PO SCH (06:08)
[2018-04-05] MEDS ORDERED: 0.9 % Sodium Chloride 1,000 ML ONE (07:09)
[2018-04-05] MEDS ORDERED: 0.9 % Sodium Chloride 250 ML IVC PRN (07:58)
[2018-04-05] MEDS: Calcium Acetate 667 MG CAPSULE PO SCH ×3 (09:33→17:30)
--- NOTE | 2018-04-05 09:33 | Nephrology Progress Note ---
Date of Encounter: 04/05/18 Time of Encounter: 09:31 - Assessment and Plan (1) ESRD (end stage renal disease) on dialysis Current Visit: Yes Status: Chronic HD MWF. Renal vitamins. Renal dose medications. Renal diet. Additional dialysis and ultrafiltration as needed. Patient was seen on dialysis today. She missed dialysis yesterday. (2) Hematemesis Current Visit: Yes Status: Acute Patient's EGD with evidence of gastroparesis and linear esophageal ulcerations with stigmata of recent bleeding, but no active bleeding. Hemoglobin is stable. Management per GI and primary team. Qualifiers: Nausea presence: with nausea Qualified Code(s): K92.0 - Hematemesis (3) Leg pain Current Visit: Yes Status: Acute Possible cellulitis, but patient is on antibiotics She had a recent lower extremity dopplar that was negative. Qualifiers: Qualified Code(s): M79.606 - Pain in leg, unspecified Subjective Principal diagnosis: ESRD Interval history: The patient was seen while she was on dialysis. She is complaining of pain in her lower legs right greater than left. She states otherwise she feels better than she did yesterday. Objective - Vital Signs Vital signs: Vital Signs Temp Pulse Resp BP Pulse Ox 04/05/18 07:28 98.0 F 80 18 120/77 94 04/05/18 03:25 98.2 F 93 16 106/44 100 04/04/18 23:29 98.3 F 90 16 104/57 96 04/04/18 21:30 96 04/04/18 19:44 16 97 04/04/18 19:17 98.6 F 92 16 90/46 98 Intake and Output 04/04/18 04/05/18 04/05/18 23:59 07:59 15:59 Intake Total 204 / 304 300 / 300 Balance 204 / 304 300 / 300 Intake: IV Fluids 204 / 304 300 / 300 SandoSTATIN 400 MCG In 0.9 % 104 / 104 Sodium Chloride 100 ML @ 50 MCG /HR 13 mls/hr IVC .Q8H NATALIE Rx#: [id number] Protonix 40 MG In 0.9 % Sodium 100 / 200 200 / 200 Chloride (Mini-Bag +) 100 ML @ 20 mls/hr IVC .Q5H NATALIE Rx#: [id number] Zosyn 3.375 GM In 0.9 % Sodium 100 / 100 Chloride (Mini-Bag +) 100 ML @ 25 mls/hr IVPB Q12H NATAILE Rx#: [id number] Other: Weight 95.9 kg Blood Glucose* 318 215 - General Appearance General appearance: Present: well-developed, well-nourished EENT: Present: ATNC Neck: Present: supple Respiratory: Present: course breath sounds Cardiology: Present: no edema, regular rate Gastrointestinal: Present: no tenderness Integumentary: Present: warm and dry Neurologic: Present: alert and oriented x3 Musculoskeletal: Present: no cyanosis Psychiatric: Present: mood/affect appropriate - Lab 04/05/18 03:55 04/05/18 03:55 Most recent lab results Calcium 8.3 mg/dL (8.6-10.3) L 04/05/18 03:55 - VTE Reasons for not Prescribing Prophylaxis: Medical contraindication Consult Discharge Plan - Plan Referrals: Tristen Quintana MD [Primary Care Provider] -
[2018-04-05] MEDS: amLODIPine 5 MG TABLET PO SCH (09:34)
[2018-04-05] MEDS: Budesonide/Formoterol 160/4.5 MDI IH SCH ×2 (09:45→19:59)
[2018-04-05] MEDS: Lactobacillus 1 EACH CAP.SPRINK PO SCH ×2 (12:08→21:30)
[2018-04-05] MEDS: metOLazone 5 MG TABLET PO SCH (12:08)
[2018-04-05] MEDS: ARIPiprazole 10 MG TABLET PO SCH (12:08)
[2018-04-05] MEDS: Gabapentin 100 MG CAPSULE PO SCH ×3 (12:08→21:30)
[2018-04-05] MEDS: Aspirin Enteric Coated 81 MG Tablet PO SCH (12:08)
[2018-04-05] MEDS: Renal Vitamin 1 MG CAPSULE PO SCH (12:08)
[2018-04-05] MEDS: Piperacillin/Tazobactam 3.375 GM in 0.9 % Sodium Chloride Mini Bag 100 ML IVPB SCH ×2 (12:09→17:38)
[2018-04-05] MEDS: Sucralfate 1 GM TABLET PO SCH ×3 (12:15→21:30)
--- NOTE | 2018-04-05 12:57 | Internal Med Progress Note ---
Date of Encounter: 04/05/18 Time of Encounter: 12:55 - Assessment and plan (1) Hematemesis Current Visit: Yes Status: Resolved Assessment and plan: Resolved. H/H stable. GI consulted; appreciate input. S/P EGD. Will follow GI recommendations of PPI and sucralfate QID. Discontinue octreotide and PPI drip. Start omeprazole 40 mg PO QD and sucralfate 1 gram QIDAC. Recheck CBC in AM. Nephrology consulted for anemia secondary to renal disease; appreciate input. Start trial of clear liquid diet today. Qualifiers: Nausea presence: with nausea Qualified Code(s): K92.0 - Hematemesis (2) Decubitus ulcer of sacral region, stage 3 Current Visit: Yes Status: Chronic Assessment and plan: Wound care consulted; will follow recommendations. Continue IV vancomycin and IV zosyn. Turn and position Q2H and up to chair TID with assistance. Recheck CBC in AM. (3) Leukocytosis Current Visit: Yes Status: Acute Assessment and plan: Improving. Chronic urinary colonization. Likely secondary to stage II decubitus sacral ulcer. Wound culture and blood cultures pending. Continue IV vancomycin and IV zosyn. Wound care consulted. Recheck CBC in AM. Qualifiers: Leukocytosis type: unspecified Qualified Code(s): D72.829 - Elevated white blood cell count, unspecified (4) ESRD (end stage renal disease) on dialysis Current Visit: Yes Status: Chronic Assessment and plan: Nephrology consulted; appreciate input. Start clear liquid diet today. (5) Anemia in chronic kidney disease, on chronic dialysis Current Visit: Yes Status: Chronic Assessment and plan: H/H stable. Nephrology consulted; appreciate input. (6) Abdominal pain with vomiting Current Visit: Yes Status: Resolved Assessment and plan: Resolved. Continue anti-emetics PRN. (7) DVT prophylaxis Current Visit: Yes Status: Acute Assessment and plan: Defer anticoagulation due to hematemesis. Continue SCDs. - Time Spent With Patient Total time spent is greater than 50% in coordination of care (as documented) at patient's floor/unit and/or counseling patient: less than 15 minutes - Constitutional Vitals: Temp Pulse Resp BP Pulse Ox 97.6 F 89 19 113/66 95 04/05/18 12:11 04/05/18 12:11 04/05/18 12:11 04/05/18 12:11 04/05/18 12:11 General appearance: Present: no acute distress Internal Medicine: Result - Labs CBC & Chem 7: 04/05/18 03:55 04/05/18 03:55 Labs: Short CBC 04/04/18 04/05/18 Range/Units 15:06 03:55 WBC 14.7 H (4.3-11.1) K/mcL Hgb 8.5 L 8.6 L (11.5-15.4) g/dL Hct 27.7 L 28.0 L (35.3-44.9) % Plt Count 170 (140-400) K/mcL Neutrophils # 11.5 H (1.6-8.9) K/mcL BMP 04/05/18 03:55 Sodium 128 L Potassium 4.2 Chloride 95 L Carbon Dioxide 24 BUN 46 H Creatinine 4.41 H Glucose 266 H Calcium 8.3 L Cardiac Enzymes 04/04/18 04/04/18 04/05/18 Range/Units 16:00 23:45 03:55 Troponin I < 0.03 0.03 < 0.03 (< 0.04) ng/mL - VTE Reasons for not Prescribing Prophylaxis: Medical contraindication (Hematemesis) Documentation of Mechanical Device: Intermittent pneumatic compression device Consult Discharge Plan - Plan Referrals: Tristen Quintana MD [Primary Care Provider] -
[2018-04-05] MEDS ORDERED: GI Cocktail 40 ML EACH PO STA (13:28)
[2018-04-05] MEDS ORDERED: Vancomycin 500 MG in 0.9 % Sodium Chloride Mini Bag 100 ML IVPB ONE (14:00)
[2018-04-05] MEDS: *HR* Morphine Sulfate SR (12 HR) 15 MG TABLET.ER PO SCH (17:33)
[2018-04-05] MEDS: Insulin DETEMIR 100 UNIT/ML X5UNITS SQ SCH (21:34)
[2018-04-06 04:24] LABS: Basophils % 0.3 %; Eosinophils # 0.2 K/mcL (0.0-0.6); Eosinophils % 1.3 %; Hematocrit 28.1 % (35.3-44.9); Hemoglobin 8.5 g/dL (11.5-15.4); Lymphocytes # 1.9 K/mcL (0.6-4.6); Lymphocytes % 14.8 %; Mean Corpuscular HGB Conc 30.2 g/dL (31.6-35.5); Mean Corpuscular Hemoglobin 27.2 pg (28.0-33.3); Mean Corpuscular Volume 90.1 fL (83.0-100.0); Mean Platelet Volume 10.4 fL (9.4-12.4); Monocytes # 0.7 K/mcL (0.0-1.3); Monocytes % 5.4 %; Neutrophils # 10.1 K/mcL (1.6-8.9); Platelet Count 169 K/mcL (140-400); Red Blood Count 3.12 M/mcL (3.82-4.97); Red Cell Distribution Width 17.5 % (11.5-14.5); Segmented Neutrophils % 77.2 %
[2018-04-06 04:36] LABS: Calcium 8.3 mg/dL (8.6-10.3); Potassium 3.9 mEq/L (3.5-5.1)
[2018-04-06] MEDS: *HR* Morphine Sulfate SR (12 HR) 15 MG TABLET.ER PO SCH (06:11)
[2018-04-06] MEDS: Sucralfate 1 GM TABLET PO SCH ×4 (06:11→21:07)
[2018-04-06] MEDS: Piperacillin/Tazobactam 3.375 GM in 0.9 % Sodium Chloride Mini Bag 100 ML IVPB SCH ×2 (06:11→18:03)
[2018-04-06] MEDS ORDERED: 0.9 % Sodium Chloride 250 ML IVC PRN (07:43)
[2018-04-06] MEDS ORDERED: 0.9 % Sodium Chloride 1,000 ML PRIME SCH (07:45)
[2018-04-06] MEDS ORDERED: 0.9 % Sodium Chloride 1,000 ML ONE (08:01)
[2018-04-06] MEDS: Insulin LISPRO 300 UNITS/3 ML VIAL SQ SCH ×4 (08:45→21:08)
[2018-04-06] MEDS: Aspirin Enteric Coated 81 MG Tablet PO SCH ×2 (08:51→10:04)
[2018-04-06] MEDS: metOLazone 5 MG TABLET PO SCH ×2 (08:51→10:06)
[2018-04-06] MEDS: ARIPiprazole 10 MG TABLET PO SCH ×2 (08:51→10:04)
[2018-04-06] MEDS: Calcium Acetate 667 MG CAPSULE PO SCH ×4 (08:51→18:03)
[2018-04-06] MEDS: Renal Vitamin 1 MG CAPSULE PO SCH ×2 (08:51→10:06)
[2018-04-06] MEDS: Lactobacillus 1 EACH CAP.SPRINK PO SCH ×3 (08:51→21:07)
[2018-04-06] MEDS: amLODIPine 5 MG TABLET PO SCH ×2 (08:51→10:05)
[2018-04-06] MEDS: Gabapentin 100 MG CAPSULE PO SCH ×4 (08:51→21:07)
[2018-04-06] MEDS ORDERED: 0.9 % Sodium Chloride 250 ML ONE (09:09)
[2018-04-06 09:20] LABS: ABG Base Excess 4 mEq/L (-2 to 3); ABG HCO3 31 mEq/L (21-27); ABG Oxygen Saturation 94 % (95-98); ABG PCO2 54 mmHg (35-45); ABG PH 7.36 pH Units (7.32-7.45); ABG PO2 77 mmHg (85-104); ABG TCO2 32 mEq/L (20-26)
[2018-04-06] MEDS ORDERED: Naloxone 0.4 MG/ML INJ IVP ONE (09:25)
[2018-04-06 09:34] LABS: Basophils % 0.3 %; Eosinophils # 0.1 K/mcL (0.0-0.6); Eosinophils % 0.8 %; Hematocrit 25.7 % (35.3-44.9); Hemoglobin 7.9 g/dL (11.5-15.4); Immature Granulocytes % 0.9 % (0-4); Lymphocytes # 1.4 K/mcL (0.6-4.6); Lymphocytes % 9.6 %; Mean Corpuscular HGB Conc 30.7 g/dL (31.6-35.5); Mean Corpuscular Hemoglobin 27.6 pg (28.0-33.3); Mean Corpuscular Volume 89.9 fL (83.0-100.0); Mean Platelet Volume 9.9 fL (9.4-12.4); Monocytes # 0.9 K/mcL (0.0-1.3); Monocytes % 5.9 %; Neutrophils # 11.8 K/mcL (1.6-8.9); Platelet Count 159 K/mcL (140-400); Red Blood Count 2.86 M/mcL (3.82-4.97); Red Cell Distribution Width 17.5 % (11.5-14.5); Segmented Neutrophils % 82.5 %
[2018-04-06] MEDS ORDERED: Ampicillin/Sulbactam 1,500 MG in 0.9 % Sodium Chloride Mini Bag 100 ML IVPB SCH (09:44)
[2018-04-06] MEDS ORDERED: Colistin (Colistimethate) 300 MG in 0.9 % Sodium Chloride 50 ML IVPB ONE (09:52)
[2018-04-06 10:06] LABS: BUN/Creatinine Ratio 8 (6-26); Blood Urea Nitrogen 24 mg/dL (8-23); Calcium 8.8 mg/dL (8.6-10.3); Carbon Dioxide 28 mEq/L (23-29); Chloride 99 mEq/L (98-107); Glucose 20 mg/dL (70-105); Osmolality,Calculated 280 (280-300); Potassium 3.4 mEq/L (3.5-5.1); Sodium 135 mEq/L (136-145); Troponin I < 0.03 ng/mL (< 0.04); eGFR For African Americans 19 (> 60); eGFR For Non-African Americans 16 (> 60)
[2018-04-06] MEDS ORDERED: *HR* Dextrose 50 % in Water (Syg) 50 ML SYRINGE IVP STA (10:07)
[2018-04-06] MEDS ORDERED: *HR* Dextrose 50 % in Water (Syg) 50 ML SYRINGE ONE (10:08)
[2018-04-06] MEDS ORDERED: Naloxone 2 MG in 0.9 % Sodium Chloride 500 ML IVC SCH (10:15)
--- NOTE | 2018-04-06 10:25 | Internal Med Progress Note ---
Date of Encounter: 04/06/18 Time of Encounter: 10:14 - Assessment and plan (1) Encephalopathy Current Visit: Yes Status: Acute Assessment and plan: Likely metabolic and multifactorial. Opioid overdose and hypoglycemia likely causes. Transfer to 2N step down unit for closer monitoring. Neurochecks Q2H. Start narcan drip; consider intermittent bolusing PRN. Follow hypoglycemia protocol with dextrose boluses PRN. Will cut levemir QHS in half. Follow up on CT head and EEG. Dialysis scheduled for today per nephrology. Addressing gastroparesis by adding reglan. Discontinue opioids for now. Patient's condition is guarded; will monitor closely. (2) Opioid overdose Current Visit: Yes Status: Acute Assessment and plan: Management as per above. Qualifiers: Encounter type: initial encounter Injury intent: accidental or unintentional Qualified Code(s): T40.2X1A - Poisoning by other opioids, accidental (unintentional), initial encounter (3) Hypoglycemia Current Visit: Yes Status: Acute Assessment and plan: Management as per above. (4) Gastroparesis Current Visit: Yes Status: Acute Assessment and plan: Start reglan 5 mg TIDAC. Continue PPI and sucralfate as per below. (5) Hematemesis Current Visit: Yes Status: Resolved Assessment and plan: Resolved. H/H stable. GI consulted; appreciate input. S/P EGD. Continue PPI and sucralfate QID. Reglan added as per above for gastroparesis. Recheck CBC in AM. Nephrology consulted for anemia secondary to renal disease; appreciate input. Continue clear liquid diet for now. Qualifiers: Nausea presence: with nausea Qualified Code(s): K92.0 - Hematemesis (6) Decubitus ulcer of sacral region, stage 3 Current Visit: Yes Status: Chronic Assessment and plan: Wound culture with MDR E. coli. Wound care consulted; will follow recommendations. Discontinue IV vancomycin and IV zosyn. Start IV colistin and IV unasyn. ID consulted; appreciate input. Turn and position Q2H and up to chair TID with assistance. Recheck CBC in AM. (7) Leukocytosis Current Visit: Yes Status: Acute Assessment and plan: Improving. Chronic urinary colonization. Likely secondary to stage II decubitus sacral ulcer. Wound culture with MDR E. coli. Blood cultures pending. Discontinue IV vancomycin and IV zosyn, and start IV colistin and IV unasyn as per above. ID consulted as per above; appreciate input. Wound care consulted. Recheck CBC in AM. Qualifiers: Leukocytosis type: unspecified Qualified Code(s): D72.829 - Elevated white blood cell count, unspecified (8) ESRD (end stage renal disease) on dialysis Current Visit: Yes Status: Chronic Assessment and plan: Nephrology consulted; appreciate input. Continue clear liquid diet. (9) Anemia in chronic kidney disease, on chronic dialysis Current Visit: Yes Status: Chronic Assessment and plan: H/H stable. Nephrology consulted; appreciate input. (10) Abdominal pain with vomiting Current Visit: Yes Status: Resolved Assessment and plan: Resolved. Continue anti-emetics PRN. (11) DVT prophylaxis Current Visit: Yes Status: Acute Assessment and plan: Defer anticoagulation due to hematemesis and anemia. Continue SCDs. - Time Spent With Patient Total time spent is greater than 50% in coordination of care (as documented) at patient's floor/unit and/or counseling patient: Greater than 35 minutes - Subjective Interval history: Rapid response called this AM due to patient somnolence. Patient with shallow respirations, difficult to arouse, minimally reactive pupils, and cold/clammy skin. Vitals all stable. Labwork, ABG, EKG, CXR, and CT head obtained. IV NS 250 ml bolus given. Labwork showed hypoglycemia to 20. ABG with pH 7.36, pCO2 54, and pO2 77. CXR with pulmonary congestion and left lung atelectasis vs pneumonia. She was given 0.5 mg narcan, after which she awakened and respirations improved. However, after few minutes started to become less responsive and somnolent again. She was given 0.5 mg x 2 more doses of narcan, each time with brief improvement in mentation. I spoke with rn picu Dr. Askew at bedside along with clinical pharmacist. Last dose of narcotics was 2- 3 days ago. However, she was recently diagnosed with gastroparesis via EGD, and medication may be hanging around in stomach. We decided to transfer to and start narcan drip. Nephrology will dialyze today. Will give dextrose for hypoglycemia. Will monitor fluid status closely. Will follow up on CT head and order EEG as nursing staff witnessed possible seizure and twitching. Wound culture came back positive for MDR E. coli. Will discontinue IV vancomycin and IV zosyn, and start IV unasyn and IV colistin. Patient is en route to CT head; will follow up when she returns. Patient's condition is guarded at this time and I will continue to monitor closely throughout the day. I spent 50 minutes providing critical care services at bedside and on 2A floor. - Constitutional Vitals: Temp Pulse Resp BP Pulse Ox 98 F 82 18 141/57 100 04/06/18 06:48 04/06/18 06:48 04/06/18 06:48 04/06/18 06:48 04/06/18 06:48 General appearance: Present: no acute distress Internal Medicine: Result - Labs CBC & Chem 7: 04/06/18 09:20 04/06/18 09:20 Labs: Short CBC 04/06/18 04/06/18 Range/Units 04:00 09:20 WBC 13.1 H 14.3 H (4.3-11.1) K/mcL Hgb 8.5 L 7.9 L (11.5-15.4) g/dL Hct 28.1 L 25.7 L (35.3-44.9) % Plt Count 169 159 (140-400) K/mcL Neutrophils # 10.1 H 11.8 H (1.6-8.9) K/mcL BMP 04/06/18 04/06/18 04:00 09:20 Sodium 134 L 135 L Potassium 3.9 3.4 L Chloride 100 99 Carbon Dioxide 27 28 BUN 23 24 H Creatinine 3.10 H 2.99 H Glucose 121 H 20 L* Calcium 8.3 L 8.8 Cardiac Enzymes 04/05/18 04/06/18 Range/Units 15:25 09:20 Troponin I < 0.03 < 0.03 (< 0.04) ng/mL - ABG Interpretation ABG results: ABG ABG pH 7.36 pH Units (7.32-7.45) 04/06/18 09:17 ABG pCO2 54 mmHg (35-45) H 04/06/18 09:17 ABG pO2 77 mmHg (85-104) L 04/06/18 09:17 ABG O2 Saturation 94 % (95-98) L 04/06/18 09:17 - Impressions Impressions Chest X-Ray 04/06/18 09:11 IMPRESSION: Cardiomegaly with increased pulmonary vascular congestion. Streaky opacities in the left mid lung, which could represent atelectasis or a developing infiltrate. D/ / Dennis Bartlett MD / Dennis Bartlett MD Interpreting Provider: Dennis Bartlett MD - VTE Reasons for not Prescribing Prophylaxis: Medical contraindication (Hematemesis and Anemia) Documentation of Mechanical Device: Intermittent pneumatic compression device Consult Discharge Plan - Plan Referrals: Tristen Quintana MD [Primary Care Provider] - (patient is from [facility])
--- NOTE | 2018-04-06 10:37 | Nephrology Progress Note ---
Date of Encounter: 04/06/18 Time of Encounter: 10:35 - Assessment and Plan (1) ESRD (end stage renal disease) on dialysis Current Visit: Yes Status: Chronic HD MWF at [facility]. HD yesterday. Became altered this morning and was a rapid response. Is being transferred to [address] [place] [address] for monitoring. Avoid nephrotoxins and renal dose all medications. Unsure if BP will allow for HD today. (2) Abdominal pain with vomiting Current Visit: Yes Status: Resolved Per primary team. (3) Congestive heart failure Current Visit: Yes Status: Chronic Per primary team. Qualifiers: Heart failure type: unspecified Qualified Code(s): I50.9 - Heart failure, unspecified Subjective Principal diagnosis: ESRD Interval history: Pt seen and examined after CT scan. Objective - Vital Signs Vital signs: Vital Signs Temp Pulse Resp BP Pulse Ox 04/06/18 06:48 98 F 82 18 141/57 100 04/06/18 06:18 100 04/06/18 04:01 97.5 F L 80 17 113/64 100 04/06/18 00:41 98.1 F 75 16 95/46 100 04/05/18 20:01 18 99 04/05/18 19:39 99.3 F 98 18 124/70 98 04/05/18 17:36 95/64 04/05/18 15:52 98.1 F 94 19 92/58 100 04/05/18 12:11 97.6 F 89 19 113/66 95 04/05/18 11:30 97.0 F L 17 157/61 04/05/18 11:15 94 04/05/18 11:10 137/51 04/05/18 10:55 136/64 04/05/18 10:40 115/54 Intake and Output 04/05/18 04/06/18 04/06/18 23:59 07:59 15:59 Intake Total 880 / 880 Balance 880 / 880 Intake: IV Fluids 400 / 400 Protonix 40 MG In 0.9 % Sodium 100 / 100 Chloride (Mini-Bag +) 100 ML @ 20 mls/hr IVC .Q5H NATALIE Rx#: [id number] Zosyn 3.375 GM In 0.9 % Sodium 200 / 200 Chloride (Mini-Bag +) 100 ML @ 25 mls/hr IVPB Q12HR NATALIE Rx#: [id number] Vancocin 500 MG In 0.9 % Sodium 100 / 100 Chloride (Mini-Bag +) 100 ML @ 100 mls/hr IVPB ONCE ONE Rx#: [id number] Oral 480 / 480 Other: Meal Dinner Percent of Meal Consumed 70% # Urine Diapers 1 Weight 94.5 kg Blood Glucose* 332 92 Patient Weight 04/06/18 23:59 Weight 94.5 kg - General Appearance General appearance: Present: obese, chronically ill, frail EENT: Present: ATNC Neck: Present: supple Respiratory: Present: course breath sounds, rhonchi Cardiology: Present: no edema, normal S1, normal S2 Dialysis Vascular Access: Arteriovenous Fistula thrill: Yes bruit: Yes Gastrointestinal: Present: normoactive bowel sounds, no tenderness, no guarding Integumentary: Present: no rash, warm and dry Neurologic: Present: confused, disoriented - Lab 04/06/18 09:20 04/06/18 09:20 Most recent lab results ABG pH 7.36 pH Units (7.32-7.45) 04/06/18 09:17 ABG pCO2 54 mmHg (35-45) H 04/06/18 09:17 ABG pO2 77 mmHg (85-104) L 04/06/18 09:17 ABG HCO3 31 mEq/L (21-27) H 04/06/18 09:17 ABG O2 Saturation 94 % (95-98) L 04/06/18 09:17 Calcium 8.8 mg/dL (8.6-10.3) 04/06/18 09:20 - VTE Reasons for not Prescribing Prophylaxis: Medical contraindication (Hematemesis) Documentation of Mechanical Device: Intermittent pneumatic compression device Consult Discharge Plan - Plan Referrals: Tristen Quintana MD [Primary Care Provider] - (patient is from [facility])
[2018-04-06] MEDS: Budesonide/Formoterol 160/4.5 MDI IH SCH ×2 (10:47→19:41)
[2018-04-06] MEDS: 0.9 % Sodium Chloride 500 ML IVC ONE (10:56)
[2018-04-06] MEDS ORDERED: D5% in Water 1,000 ML IVC PRN (11:16)
[2018-04-06] MEDS ORDERED: Dextrose Gel 15 GM/37.5 ML TUBE PO PRN ×2 (11:16)
[2018-04-06] MEDS ORDERED: *HR* Dextrose 50 % in Water (Syg) 50 ML SYRINGE IVP PRN (11:16)
--- NOTE | 2018-04-06 11:24 | Infectious Disease Consult ---
Date of Encounter: 04/06/18 Time of Encounter: 11:00 Assessment and Plan (1) Severe sepsis Status: Acute Assessment and plan: Patient presented with 2/4 SIRS criteria with tachycardia and leukocytosis She has remained afebrile and non-tachycardic during this hospital course and her white count has trended down to 14 Suspected source unclear, sacral decubitus ulcer vs. urinary vs. pulmonary Blood cultures remain negative (2) Decubitus ulcer of sacral region, stage 3 Status: Chronic Assessment and plan: Patient has stage III to get his ulcer and follows with wound care According to recent wound care documents, she no longer has a wound VAC due to necrotic tissue surrounding the ulcer Spoke to radiologist about CT abdomen/pelvis, who states the ulcer extends 1-2 mm above the bone but there are no obvious signs of bony lesions If suspicion for osteomyelitis remains, will consider MRI without contrast Wound culture clotted on April 04 positive for multidrug-resistant Escherichia coli, Proteus, group B strep She was initially started on vancomycin and Zosyn and had improvement of her tachycardia and white count After wound culture results, patient was switched to colistin and Unasyn Recommend discontinuing colistin and Unasyn and putting her back on vancomycin and Zosyn as she had improvement during that time Obtain CRP, ESR, pro-calcitonin Appreciate wound care consult, recommend topical gentamicin (3) Pneumonia Status: Acute Assessment and plan: Repeat chest x-ray this morning demonstrated left midlung opacity Patient may have aspirated when she was nauseous and vomiting Obtain urinary antigens for Legionella and strep Antibiotic regimen as above Initial abdominal CT did demonstrate chronic bibasilar bronchitis/bronchiolitis Consider noncontrast CT of the chest for further evaluation Qualifiers: Pneumonia type: aspiration pneumonia Aspiration pneumonia type: unspecified Laterality: unspecified laterality Lung location: unspecified part of lung Qualified Code(s): J69.0 - Pneumonitis due to inhalation of food and vomit (4) Acute metabolic encephalopathy Status: Acute Assessment and plan: Rapid response was called this morning as patient was minimally responsive Likely secondary to hypoglycemia as blood sugar was 20 Mental status does seem to be mildly improving EEG pending Deferred to primary team for management of metabolic issues (5) Emphysematous pyelitis Status: Resolved Assessment and plan: She has been seen by urology as outpatient for this CT did demonstrate air in the renal collecting system She does have a right ureteral stent in place, unclear if this has been changed recently Consider urology consult (6) Hematemesis Status: Resolved Qualifiers: Nausea presence: with nausea Qualified Code(s): K92.0 - Hematemesis (7) Diabetes type 2, uncontrolled Status: Chronic Qualifiers: Diabetes mellitus buttermaker insulin use: with mcc use Diabetes mellitus complication status: with kidney complications Diabetes mellitus complication detail: with chronic kidney disease Chronic kidney disease stage : on chronic dialysis Qualified Code(s): E11.22 - Type 2 diabetes mellitus with diabetic chronic kidney disease; E11.65 - Type 2 diabetes mellitus with hyperglycemia; N18.6 - End stage renal disease; Z79.4 - MCFP (current) use of insulin; Z99.2 - Dependence on renal dialysis (8) ESRD (end stage renal disease) on dialysis Status: Chronic Infectious Disease HPI - Data of Consult Patient: known to practice within the last 3 years Consult date: 04/06/18 Requesting Physician: Yuniel Menjivar MD Primary Care Provider: Tristen Quintana MD - Consult Narrative Reason for consult: MDR E. coli from wound culture History of present illness: Ms. Riley is a 63 year old female who was admitted on April 04 for nausea, vomiting and hematemesis. We are consulted today for sacral decubitus ulcer with wound culture positive for multidrug-resistant Escherichia coli. Patient has medical history of stage III sacral decubitus ulcer which she follows wound care for, diabetes, ESRD with dialysis on Wednesday, Wednesday, Wednesday, history of ESBL UTI, COPD, hypertension. Coronary chart review, and had a day history of nausea vomiting prior to admission and had 3 day history of hematemesis with coffee-ground emesis. Initial vitals in the emergency department was temperature of 98.3, heart rate 108, respiratory 14, blood pressure 106/57. Her initial white count was 29 with neutrophil predominance, lactic acid 0.7. Urinalysis was contaminated and no culture was indicated. Chest x-ray did demonstrate pulmonary vascular congestion with central interstitial opacities likely atelectasis. CT of abdomen and pelvis demonstrated bibasilar pulmonary bronchitis versus bronchitis and a right ureteral stent with mild hydronephrosis and small amount of air in the renal collecting system which infection cannot be excluded. Patient was started on vancomycin and Zosyn initially. GI was consulted and performed EGD which revealed 5 linear ulcers extending the entire esophagus but no active bleeding. She was recommended to start Carafate and continue PPI, and has not required any blood transfusions so far as her hemoglobin has remained stable around 8. This morning, patient had a rapid response called due to altered mental status and unresponsiveness. Her blood sugar was 20 and she was also given Narcan which did help her mental status briefly. Head CT did not demonstrate any acute abnormalities and chest x-ray showed left-sided midlung opacity and increased pulmonary edema. Her wound culture did come back positive today for multidrug-resistant Escherichia coli, Proteus, group B strep. Vancomycin and Zosyn have been stopped and she has been started on colistin and Unasyn. Blood cultures remain negative. During today's exam, patient is confused and only alert and oriented to herself. She complains of chest pain and a lateral lower extremity pain. She also reports shortness of breath and feels nauseous and "crazy". She has remained afebrile and not tachycardic so far during her stay, and her white count has decreased down to 14 this morning. Patient has an extensive medical history and has required multiple admissions at this facility this years. Infectious disease was consulted in late January of this year due to sepsis secondary to ESBL Escherichia coli bacteremia. She has had a right ureteral stent since November and this was thought to be a cause of the UTI. At that time she was given ertapenem for 2 weeks. She also has had multiple urine cultures positive for multidrug-resistant Escherichia coli, but this was seen as contaminant in her most recent visits. CC: Yuniel Menjivar MD Past Med Surg Social Fam HX - Past Medical History Medical history: atrial fibrillation, CHF, COPD, diabetes, myocardial infarction , renal disease Additional medical history: no defecits from previous CVA Psychiatric history: anxiety, depression, schizophrenia, previous psychiatric hospitalization - Past Surgical History Surgical History: angioplasty/stent, appendectomy, cholecystectomy, coronary bypass (CABG), hysterectomy, knee replacement, other, IVC filter Additional surgical history: CABG 2002,BILAT KNEE REPLACEMENTS,TONSILLECTOMY,3- 4 CARDIAC STENTS, ORIF RT ARM - Social History Smoking Status: Current every day smoker Smokeless Tobacco Status: No Alcohol use: none Drug use: none - Family History Father Family Member Ethnicity: Non- Living Status: Hx Family Cardiac Disorders: Yes Hx Family Respiratory Disorders: Yes Hx Family Cancer: Yes (Polycythemia) Hx Family Endocrine Disorder: Yes (DM) Mother Family Member Ethnicity: Non- Living Status: Still Living Hx Family Cardiac Disorders: Yes Hx Family Respiratory Disorders: Yes (asthma, COPD) Brother Adopted: No Family Member Ethnicity: Non- Living Status: Still Living Hx Family Cardiac Disorders: No Hx Family Respiratory Disorders: No Hx Family Cancer: No Hx Family GI Disorders: No Hx Family Endocrine Disorder: No Hx Family Neuromuscular Disorders: No Hx Family Neurologic Disorders: No Hx Family HEENT Disorders: No Hx Family Autoimmune Disorders: No Sister Adopted: No Family Member Ethnicity: Non- Living Status: Still Living Hx Family Cardiac Disorders: Yes Hx Family Respiratory Disorders: No Hx Family Cancer: No Hx Family GI Disorders: No Hx Family Endocrine Disorder: Yes Hx Family Neuromuscular Disorders: No Hx Family Neurologic Disorders: No Hx Family HEENT Disorders: No Hx Family Autoimmune Disorders: No Infectious Disease-CN:Meds Omeprazole [PriLOSEC] 20 mg PO DAILY 05/11/15 [History] Colestipol HCl [Colestid] 1 gm PO BID 06/12/15 [History] Calcium Acetate [Phos-LO] 1,334 mg PO TIDWM 09/06/16 [History] Folic Acid/Vit Bcomp,C [Renal Vitamin Tablet] 0.8 mg PO DAILY 04/15/17 [History] ARIPiprazole [Abilify] 10 mg PO DAILY 09/13/17 [History] Aspirin Enteric Coated [Aspirin EC] 81 mg PO DAILY 09/13/17 [History] Budesonide/Formoterol 160/4.5 [Symbicort 160/4.5] 2 puff IH BIDR 09/13/17 [ History] Cholecalciferol (Vitamin D3) [Vitamin D3] 50,000 unit PO TH 09/13/17 [History] OxyCODONE/APAP 10/325 [Percocet 10/325 MG] 1 tab PO Q6H PRN 09/13/17 [History] Sennosides [Senna] 8.6 mg PO BID PRN 09/13/17 [History] Sevelamer [Renvela] 800 mg PO TID 09/13/17 [History] Albuterol Neb [AccuNeb] 0.63 mg IH Q6H PRN 10/18/17 [History] Oxybutynin [Ditropan] 5 mg PO TID 11/11/17 [History] Insulin LISPRO [Humalog Kwikpen U-100] 0 unit SQ ACHS 11/25/17 [History] Acetaminophen [Tylenol] 650 mg PO Q6HR PRN tablet 12/14/17 [Rx] amLODIPine [Norvasc] 5 mg PO DAILY 12/30/17 [History] Clopidogrel [Plavix] 75 mg PO DAILY 02/03/18 [History] Saccharomyces Boulardii [Florastor] 250 mg PO BID #20 capsule 02/09/18 [Rx] Rosuvastatin Calcium [Crestor] 20 mg PO DAILY 02/27/18 [History] Amitriptyline [Elavil] 50 mg PO HS tablet 03/24/18 [Rx] Gabapentin [Neurontin] 100 mg PO TID 3 Days #10 capsule 03/24/18 [Rx] Morphine Sulfate SR (12 HR) [MS Contin] 30 mg PO Q12HR 3 Days #6 03/24/18 [Rx] Carvedilol [Coreg] 6.25 mg PO BIDWM tablet 03/30/18 [Rx] Darbepoetin [Aranesp] 60 mcg SQ QWEEK syringe 03/30/18 [Rx] Insulin DETEMIR [Levemir] 40 unit SQ HS 04/04/18 [History] metOLazone [Zaroxolyn] 5 mg PO DAILY 04/04/18 [History] 3 Allergy/AdvReac Type Severity Reaction Status Date / Time No Known Allergies Allergy Verified 03/28/18 13:51 ROS unobtainable: due to mental status Exam - Constitutional Vitals: Temp Pulse Resp BP Pulse Ox 97.4 F L 71 18 122/44 92 04/06/18 10:40 04/06/18 10:40 04/06/18 10:40 04/06/18 10:40 04/06/18 10:40 General appearance: disheveled (somnolent, does respond to questions appropriately at times but rambles incoherently ), obese, no febrile, no cooperative - Head Head exam: Present: atraumatic, normocephalic - Respiratory Respiratory exam: Present: decreased breath sounds, rhonchi. Absent: accessory muscle use, tachypnea - Cardiovascular Cardiovascular exam: Present: RRR. Absent: irregular rhythm, systolic murmur, tachycardia - GI/Abdominal GI/Abdominal exam: Present: normal bowel sounds, soft. Absent: tenderness - Extremities Exam Extremities exam: Present: pedal edema, tenderness Additional comments: erythema noted bilaterally in lower extremities Infectious Disease CN: Results - Labs CBC & Chem 7: 04/06/18 09:20 04/06/18 09:20 - VTE Reasons for not Prescribing Prophylaxis: Medical contraindication (Hematemesis) Documentation of Mechanical Device: Intermittent pneumatic compression device Consult Discharge Plan - Plan Referrals: Tristen Quintana MD [Primary Care Provider] - (patient is from [facility]) - Attending Attestation I examined this patient and my medical decision-making was reviewed with the Resident Physician. I agree with the documented findings, disposition and treatment plan as described except to the extent set forth below. Patient is an unfortunate 63-year-old woman that is well-known to my service that was last seen by us in February of this year for sepsis, bacteremia with Escherichia coli ESBL, UTI with Escherichia coli, kaylan tropicalis, VRE and chronic sacral pressure ulcer, diabetes mellitus type 2, end-stage renal disease on hemodialysis who also has this emphysematous pyelitis that she has had for quite some time and urology was following came in to the emergency department on 04/04 4 nausea vomiting and emesis and hematemesis. We are consulted for persistent leukocytosis. Workup on the patient so far reveals questionable pneumonia best on chest x-ray, a stage III decubitus ulcer and UTI with gram-negative rods. Patient was started on vancomycin and Zosyn on admission and her WBC improved from 29 to around 14. Patient's tachycardia also improved. 2 for SIRS criteria resolved on vancomycin and Zosyn. A wound culture of the decubitus ulcer grew multidrug resistant Escherichia coli, multidrug resistant Proteus and group B strep. Patient was started on colistin and Unasyn and were asked to evaluate the patient's make further recommendations Assessment and plan Sepsis on admission; improved significantly with leukocytosis down from 29,000 14,000 and tachycardia resolved. Patient has been on vancomycin and Zosyn. I am not sure really wear her source of infection was not a clearly improved with that. Decubitus ulcer stage III with multidrug resistant organisms. A CT abdomen and pelvis revealed mild scattered subcutaneous body wall induration which may relate to edema. No loculated fluid collection. No new osseous abnormality. Altered mental status. Patient has been severely hypoglycemic with a blood sugar of 20. [facility] will tell me that her mentation steadily getting worse before her glucose plummeted. It was attributed to multifactorial because patient improved on Narcan and when glucose was given. Questionable pneumonia. Chest x-ray from 04/06 read streaky opacities in the left mid lung which could represent atelectasis or developing infiltrate. Diabetes mellitus End-stage renal disease on hemodialysis Recommendations: At this point I really do not have an obvious source for the patient's leukocytosis. A clearly improved on vancomycin and Zosyn which did not cover THE bacteria supposedly cultured from the stage III decubitus ulcer. I looked at the ulcer myself today I reviewed the CT scan and I am not sure that is the source. The patient had aspiration pneumonia helpful Vanco and Zosyn possibly. I would give topical gentamicin to the decubitus ulcer plus aggressive wound care. We will DC the colistin and the Unasyn for now. Continue vancomycin and Zosyn. I ordered a battery of tests awaiting for it to finalize.
--- NOTE | 2018-04-06 12:21 | Electrocardiograph Report ---
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
[2018-04-06] MEDS: Metoclopramide 10 MG/10 ML UD.LIQ PO SCH ×2 (12:31→18:04)
[2018-04-06] MEDS: Octreotide 400 MCG in 0.9 % Sodium Chloride 100 ML IVC SCH (12:56)
[2018-04-06] MEDS ORDERED: Vancomycin 500 MG in 0.9 % Sodium Chloride Mini Bag 100 ML IVPB ONE (14:00)
[2018-04-06] MEDS ORDERED: Vancomycin 1 EACH in 0.9 % Sodium Chloride 250 ML IVPB PRN (16:00)
--- NOTE | 2018-04-06 16:39 | EEG/EMG/Oth Biometrics Report ---
EEG Procedure Report Date of procedure: 04/06/18 EEG Procedure: Routine EEG Procedure Note: This is a report of a 21 channel bipolar and referential montage EEG. A posterior dominant rhythm of 6-7 Hz moderate voltage theta frequency is identified. This rhythm is not reactive to eye opening. Hyperventilation is not performed during the recording. There is no sleep architecture identified during the study. Significant movement artifact is identified as well as other myogenic artifact due to talking. Photic stimulations performed and does not produce a driving response. The EKG rhythm strip reveals low voltage normal sinus rhythm at 90 bpm. Impressions: This EEG recording is abnormal and is consistent with a mild generalized encephalopathy. There is no evidence of epileptiform activity identified during the study. If the suspicion for seizure activity is high, serial EEGs or perhaps a prolonged study may increase the yield. Comment: An EEG that is void of seizure activity does not rule out the possibility of seizure or epilepsy. Etiologies to explain this interpretation might include toxic, metabolic, postictal, infectious, or degenerative. Please correlate clinically.
--- NOTE | 2018-04-06 17:56 | Electrocardiograph Report ---
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
[2018-04-06] MEDS: Gentamicin Oint 15 GM TUBE TP SCH ×2 (18:04→21:09)
[2018-04-06] MEDS: Insulin DETEMIR 100 UNIT/ML X5UNITS SQ SCH (21:08)
[2018-04-07 05:02] LABS: Basophils % 0.4 %; Eosinophils # 0.2 K/mcL (0.0-0.6); Eosinophils % 1.8 %; Hemoglobin 8.2 g/dL (11.5-15.4); Lymphocytes # 1.7 K/mcL (0.6-4.6); Lymphocytes % 21.1 %; Mean Corpuscular HGB Conc 30.4 g/dL (31.6-35.5); Mean Corpuscular Hemoglobin 27.3 pg (28.0-33.3); Mean Platelet Volume 10.4 fL (9.4-12.4); Monocytes # 0.6 K/mcL (0.0-1.3); Monocytes % 6.9 %; Neutrophils # 5.7 K/mcL (1.6-8.9); Platelet Count 140 K/mcL (140-400); Red Cell Distribution Width 17.6 % (11.5-14.5); Segmented Neutrophils % 68.8 %
[2018-04-07 05:21] LABS: Calcium 8.1 mg/dL (8.6-10.3); Potassium 3.3 mEq/L (3.5-5.1)
[2018-04-07] MEDS: Piperacillin/Tazobactam 3.375 GM in 0.9 % Sodium Chloride Mini Bag 100 ML IVPB SCH ×2 (05:36→16:49)
[2018-04-07] MEDS: Budesonide/Formoterol 160/4.5 MDI IH SCH ×2 (07:32→20:41)
--- NOTE | 2018-04-07 09:20 | Nephrology Progress Note ---
Date of Encounter: 04/07/18 Time of Encounter: 09:15 - Assessment and Plan (1) ESRD (end stage renal disease) on dialysis Current Visit: Yes Status: Chronic HD MWF at [facility]. HD yesterday without complication. Patient is much more alert today. Continue to monitor glucose. (2) Abdominal pain with vomiting Current Visit: Yes Status: Resolved Per primary team. (3) Congestive heart failure Current Visit: Yes Status: Chronic Per primary team. Qualifiers: Heart failure type: unspecified Qualified Code(s): I50.9 - Heart failure, unspecified Subjective Principal diagnosis: ESRD Interval history: Pt seen and examined. Doing well, alert and oriented this morning. Objective - Vital Signs Vital signs: Vital Signs Temp Pulse Resp BP Pulse Ox 04/07/18 07:32 20 100 04/07/18 07:21 98.7 F 94 17 103/53 100 04/07/18 05:10 98 F 90 18 115/62 99 04/07/18 05:06 98.5 F 86 18 135/75 95 04/07/18 00:54 97.2 F L 85 18 121/56 100 04/06/18 19:41 19 93 04/06/18 17:55 97.5 F L 18 133/42 04/06/18 17:20 145/48 04/06/18 17:05 146/60 04/06/18 16:50 146/53 04/06/18 16:35 149/52 04/06/18 16:20 141/69 04/06/18 16:05 139/54 04/06/18 15:50 132/53 04/06/18 15:35 129/55 04/06/18 15:20 118/55 04/06/18 15:05 116/54 04/06/18 14:50 123/56 04/06/18 14:35 117/54 04/06/18 14:20 97.2 F L 18 104/55 04/06/18 10:40 97.4 F L 71 18 122/44 92 Intake and Output 04/06/18 04/07/18 04/07/18 23:59 07:59 15:59 Intake Total 460 / 460 600 / 600 Output Total 2600 / 2600 Balance -2140 / -2140 600 / 600 Intake: IV Fluids 100 / 100 Zosyn 3.375 GM In 0.9 % Sodium 100 / 100 Chloride (Mini-Bag +) 100 ML @ 25 mls/hr IVPB Q12HR [facility] Rx#: [id number] Oral 360 / 360 600 / 600 Output: Urine 0 / 0 Total Dialysis (HD) Output 2600 / 2600 Other: Meal Lunch Breakfast Percent of Meal Consumed 100% Blood Glucose* [phone] Hemodialysis Net Fluid Removed 2000 (mL) - General Appearance General appearance: Present: obese, chronically ill EENT: Present: ATNC, hearing intact, vision intact Neck: Present: supple Respiratory: Present: clear Cardiology: Present: no edema, normal S1, normal S2 Dialysis Vascular Access: Arteriovenous Fistula thrill: Yes bruit: Yes Gastrointestinal: Present: normoactive bowel sounds, no tenderness, no guarding Integumentary: Present: no rash, warm and dry Neurologic: Present: alert and oriented x3 Psychiatric: Present: mood/affect appropriate, cooperative - Lab 04/07/18 04:45 04/07/18 04:45 Most recent lab results ABG pH 7.36 pH Units (7.32-7.45) 04/06/18 09:17 ABG pCO2 54 mmHg (35-45) H 04/06/18 09:17 ABG pO2 77 mmHg (85-104) L 04/06/18 09:17 ABG HCO3 31 mEq/L (21-27) H 04/06/18 09:17 ABG O2 Saturation 94 % (95-98) L 04/06/18 09:17 Calcium 8.1 mg/dL (8.6-10.3) L 04/07/18 04:45 - VTE Reasons for not Prescribing Prophylaxis: Medical contraindication (Hematemesis) Documentation of Mechanical Device: Intermittent pneumatic compression device Consult Discharge Plan - Plan Referrals: Tristen Quintana MD [Primary Care Provider] - (patient is from [facility])
--- NOTE | 2018-04-07 09:22 | Infectious Disease Progress No ---
Date of Encounter: 04/07/18 Time of Encounter: 09:00 - Assessment and Plan (1) Severe sepsis Current Visit: Yes Status: Acute Patient presented with 2/4 SIRS criteria with tachycardia and leukocytosis She has remained afebrile and non-tachycardic during this hospital course and her white count has trended down to 8 Suspected source unclear, sacral decubitus ulcer vs. urinary vs. pulmonary Blood cultures remain negative (2) Decubitus ulcer of sacral region, stage 3 Current Visit: Yes Status: Chronic Patient has stage III to get his ulcer and follows with wound care According to recent wound care documents, she no longer has a wound VAC due to necrotic tissue surrounding the ulcer Spoke to radiologist about CT abdomen/pelvis, who states the ulcer extends 1-2 mm above the bone but there are no obvious signs of bony lesions If suspicion for osteomyelitis remains, will consider MRI without contrast Wound culture clotted on April 04 positive for multidrug-resistant Escherichia coli, Proteus, group B strep She was initially started on vancomycin and Zosyn and had improvement of her tachycardia and white count After wound culture results, patient was switched to colistin and Unasyn Discontinued colistin and Unasyn on 04/06 and restarted on vancomycin and Zosyn as she had improvement during that time Obtain CRP 27, ESR 42 Await procalcitonin level Appreciate wound care consult, recommend topical gentamicin (3) Pneumonia Current Visit: No Status: Acute Repeat chest x-ray 04/06 demonstrated left midlung opacity Patient may have aspirated when she was nauseous and vomiting Await urinary antigens for Legionella and strep Antibiotic regimen as above Initial abdominal CT did demonstrate chronic bibasilar bronchitis/bronchiolitis Consider noncontrast CT of the chest for further evaluation Qualifiers: Pneumonia type: aspiration pneumonia Aspiration pneumonia type: unspecified Laterality: unspecified laterality Lung location: unspecified part of lung Qualified Code(s): J69.0 - Pneumonitis due to inhalation of food and vomit (4) Acute metabolic encephalopathy Current Visit: No Status: Acute Rapid response was called this morning as patient was minimally responsive Likely secondary to hypoglycemia as blood sugar was 20 during rapid response on 04/06 Mental status much improved this morning EEG show mild generalized encephalopathy without evidence of epileptiform activity Deferred to primary team for management of metabolic issues (5) Hematemesis Current Visit: Yes Status: Resolved Qualifiers: Nausea presence: with nausea Qualified Code(s): K92.0 - Hematemesis (6) Diabetes type 2, uncontrolled Current Visit: No Status: Chronic Qualifiers: Diabetes mellitus half-way insulin use: with half-way use Diabetes mellitus complication status: with kidney complications Diabetes mellitus complication detail: with chronic kidney disease Chronic kidney disease stage : on chronic dialysis Qualified Code(s): E11.22 - Type 2 diabetes mellitus with diabetic chronic kidney disease; E11.65 - Type 2 diabetes mellitus with hyperglycemia; N18.6 - End stage renal disease; Z79.4 - skilled nursing (current) use of insulin; Z99.2 - Dependence on renal dialysis (7) ESRD (end stage renal disease) on dialysis Current Visit: No Status: Chronic - Subjective Interval history: Pt seen and examined. She states she is feeling much better today and does not feel confused. Complains of pain in her rear fro a chronic decubitus ulcer but states this is not more than usual for her. Had some nausea last night but did not vomit. Denies fever, chills, chest pain, shortness of breath, diarrhea. Infect Dis PN-Objective Data - Labs CBC & Chem 7: 04/08/18 04:18 04/08/18 04:00 Labs: Laboratory Results - last 24 hr 04/06/18 04/06/18 04/06/18 08:36 09:17 09:20 WBC 14.3 H RBC 2.86 L Hgb 7.9 L Hct 25.7 L MCV 89.9 MCH 27.6 L MCHC 30.7 L RDW 17.5 H Plt Count 159 MPV 9.9 Immature Gran % 0.9 Seg Neutrophils % 82.5 Lymphocytes % 9.6 Monocytes % 5.9 Eosinophils % 0.8 Basophils % 0.3 Neutrophils # 11.8 H Lymphocytes # 1.4 Monocytes # 0.9 Eosinophils # 0.1 Basophils # 0.0 ESR ABG pH 7.36 ABG pCO2 54 H ABG pO2 77 L ABG HCO3 31 H ABG Total CO2 32 H ABG O2 Saturation 94 L ABG Base Excess 4 H O2 Delivery Device Cannula Inspired O2 3.0 Sodium Potassium Chloride Carbon Dioxide BUN Creatinine Est GFR ( Amer) Est GFR (Non-Af Amer) BUN/Creatinine Ratio Glucose POC Glucose 92 Calculated Osmolality Lactic Acid Calcium Troponin I C-Reactive Protein 04/06/18 04/06/18 04/06/18 09:20 09:20 10:19 WBC RBC Hgb Hct MCV MCH MCHC RDW Plt Count MPV Immature Gran % Seg Neutrophils % Lymphocytes % Monocytes % Eosinophils % Basophils % Neutrophils # Lymphocytes # Monocytes # Eosinophils # Basophils # ESR ABG pH ABG pCO2 ABG pO2 ABG HCO3 ABG Total CO2 ABG O2 Saturation ABG Base Excess O2 Delivery Device Inspired O2 Sodium 135 L Potassium 3.4 L Chloride 99 Carbon Dioxide 28 BUN 24 H Creatinine 2.99 H Est GFR ( Amer) 19 L Est GFR (Non-Af Amer) 16 L BUN/Creatinine Ratio 8 Glucose 20 L* POC Glucose 143 H Calculated Osmolality 280 Lactic Acid 0.5 Calcium 8.8 Troponin I < 0.03 C-Reactive Protein 04/06/18 04/06/18 04/06/18 10:19 10:59 11:27 WBC RBC Hgb Hct MCV MCH MCHC RDW Plt Count MPV Immature Gran % Seg Neutrophils % Lymphocytes % Monocytes % Eosinophils % Basophils % Neutrophils # Lymphocytes # Monocytes # Eosinophils # Basophils # ESR ABG pH ABG pCO2 ABG pO2 ABG HCO3 ABG Total CO2 ABG O2 Saturation ABG Base Excess O2 Delivery Device Inspired O2 Sodium Potassium Chloride Carbon Dioxide BUN Creatinine Est GFR ( Amer) Est GFR (Non-Af Amer) BUN/Creatinine Ratio Glucose POC Glucose 139 H 91 87 Calculated Osmolality Lactic Acid Calcium Troponin I C-Reactive Protein 04/06/18 04/06/18 04/06/18 18:03 20:50 20:52 WBC RBC Hgb Hct MCV MCH MCHC RDW Plt Count MPV Immature Gran % Seg Neutrophils % Lymphocytes % Monocytes % Eosinophils % Basophils % Neutrophils # Lymphocytes # Monocytes # Eosinophils # Basophils # ESR ABG pH ABG pCO2 ABG pO2 ABG HCO3 ABG Total CO2 ABG O2 Saturation ABG Base Excess O2 Delivery Device Inspired O2 Sodium Potassium Chloride Carbon Dioxide BUN Creatinine Est GFR ( Amer) Est GFR (Non-Af Amer) BUN/Creatinine Ratio Glucose POC Glucose 159 H 430 H* 404 H* Calculated Osmolality Lactic Acid Calcium Troponin I C-Reactive Protein 04/07/18 04/07/18 04/07/18 00:37 04:45 04:45 WBC 8.3 RBC 3.00 L Hgb 8.2 L Hct 27.0 L MCV 90.0 MCH 27.3 L MCHC 30.4 L RDW 17.6 H Plt Count 140 MPV 10.4 Immature Gran % 1.0 Seg Neutrophils % 68.8 Lymphocytes % 21.1 Monocytes % 6.9 Eosinophils % 1.8 Basophils % 0.4 Neutrophils # 5.7 Lymphocytes # 1.7 Monocytes # 0.6 Eosinophils # 0.2 Basophils # 0.0 ESR ABG pH ABG pCO2 ABG pO2 ABG HCO3 ABG Total CO2 ABG O2 Saturation ABG Base Excess O2 Delivery Device Inspired O2 Sodium 136 Potassium 3.3 L Chloride 98 Carbon Dioxide 33 H BUN 11 Creatinine 1.97 H Est GFR ( Amer) 31 L Est GFR (Non-Af Amer) 26 L BUN/Creatinine Ratio 6 Glucose 89 POC Glucose 216 H Calculated Osmolality 281 Lactic Acid Calcium 8.1 L Troponin I C-Reactive Protein 27 H 04/07/18 04:45 WBC RBC Hgb Hct MCV MCH MCHC RDW Plt Count MPV Immature Gran % Seg Neutrophils % Lymphocytes % Monocytes % Eosinophils % Basophils % Neutrophils # Lymphocytes # Monocytes # Eosinophils # Basophils # ESR 42 H ABG pH ABG pCO2 ABG pO2 ABG HCO3 ABG Total CO2 ABG O2 Saturation ABG Base Excess O2 Delivery Device Inspired O2 Sodium Potassium Chloride Carbon Dioxide BUN Creatinine Est GFR ( Amer) Est GFR (Non-Af Amer) BUN/Creatinine Ratio Glucose POC Glucose Calculated Osmolality Lactic Acid Calcium Troponin I C-Reactive Protein - Impressions Impressions Head CT 04/06/18 09:10 IMPRESSION: No acute intracranial abnormality. Extremely limited study due to patient motion. Mild cerebral atrophy appropriate for age. D/ / Chavo Amador MD / Chavo Amador MD Interpreting Provider: Chavo Amador MD Chest X-Ray 04/06/18 09:11 IMPRESSION: Cardiomegaly with increased pulmonary vascular congestion. Streaky opacities in the left mid lung, which could represent atelectasis or a developing infiltrate. D/ / Dennis Bartlett MD / Dennis Bartlett MD Interpreting Provider: Dennis Bartlett MD Exam - Constitutional Vitals: Temp Pulse Resp BP Pulse Ox 98.7 F 94 20 103/53 100 04/07/18 07:21 04/07/18 07:21 04/07/18 07:32 04/07/18 07:21 04/07/18 07:32 General appearance: cooperative, no acute distress, no febrile - Head Head exam: Present: atraumatic, normocephalic - Respiratory Respiratory exam: Present: CTAB. Absent: decreased breath sounds, respiratory distress, wheezes - Cardiovascular Cardiovascular exam: Present: RRR. Absent: irregular rhythm, systolic murmur, tachycardia - GI/Abdominal GI/Abdominal exam: Present: normal bowel sounds, soft. Absent: tenderness - Extremities Exam Extremities exam: Absent: pedal edema, tenderness - Neurological Exam Neurological exam: Present: alert, oriented X3, no focal deficits. Absent: facial droop, speech deficit - VTE Reasons for not Prescribing Prophylaxis: Medical contraindication (Hematemesis) Documentation of Mechanical Device: Intermittent pneumatic compression device Consult Discharge Plan - Plan Additional Instructions: Follow up with [facility] physician in 2-3 days after discharge. Recheck BMP and CBC at that time. Follow up on final hospital blood cultures at that time. Follow up with wound care Dr. Solorzano as directed. Referrals: Tristen Quintana MD [Primary Care Provider] - (patient is from [facility]) Prescriptions: Piperacillin/Tazobactam [Zosyn] 3.375 gm IVPB Q12HR 7 Days #14 vial Gabapentin [Neurontin] 100 mg PO TID 3 Days #9 capsule Gentamicin Oint [Garamycin] 1 appl TP QID 3 Days #1 tube Metoclopramide [Reglan] 5 mg PO TIDAC 3 Days #9 ud.liq Omeprazole [PriLOSEC] 40 mg PO DAILY 3 Days #3 capsule. OxyCODONE/APAP 10/325 [Percocet 10/325 MG] 1 tab PO Q6H PRN 3 Days #12 tablet PRN Reason: Severe Pain Sodium Hypochlorite 0.25% [Dakin's (Half-Strength 0.25%)] 1 appl TP BID 3 Days # 1 bottle Sucralfate [Carafate] 1 gm PO QIDAC 3 Days #12 tablet Vancomycin [Vancocin] 500 each IV MOWEFR #3 vial - Attending Attestation I examined this patient and my medical decision-making was reviewed with the Resident Physician. I agree with the documented findings, disposition and treatment plan as described except to the extent set forth below.
[2018-04-07] MEDS: Lactobacillus 1 EACH CAP.SPRINK PO SCH ×2 (10:52→21:29)
[2018-04-07] MEDS: ARIPiprazole 10 MG TABLET PO SCH (10:53)
[2018-04-07] MEDS: Gabapentin 100 MG CAPSULE PO SCH ×3 (10:53→21:29)
[2018-04-07] MEDS: Renal Vitamin 1 MG CAPSULE PO SCH (10:53)
[2018-04-07] MEDS: amLODIPine 5 MG TABLET PO SCH (10:53)
[2018-04-07] MEDS: Aspirin Enteric Coated 81 MG Tablet PO SCH (10:53)
[2018-04-07] MEDS: metOLazone 5 MG TABLET PO SCH (10:53)
[2018-04-07] MEDS: Sucralfate 1 GM TABLET PO SCH ×4 (10:54→21:29)
[2018-04-07] MEDS: Metoclopramide 10 MG/10 ML UD.LIQ PO SCH ×3 (10:54→16:49)
[2018-04-07] MEDS: Insulin LISPRO 300 UNITS/3 ML VIAL SQ SCH ×4 (10:55→21:28)
[2018-04-07] MEDS: Calcium Acetate 667 MG CAPSULE PO SCH ×3 (11:03→16:49)
[2018-04-07] MEDS: Gentamicin Oint 15 GM TUBE TP SCH ×4 (12:05→21:31)
[2018-04-07] MEDS ORDERED: GI Cocktail 40 ML EACH PO STA (17:11)
[2018-04-07] MEDS ORDERED: Ampicillin/Sulbactam 3,000 MG in 0.9 % Sodium Chloride Mini Bag 100 ML IVPB SCH (18:00)
--- NOTE | 2018-04-07 18:08 | Internal Med Progress Note ---
Date of Encounter: 04/07/18 Time of Encounter: 11:07 - Assessment and plan (1) Encephalopathy Current Visit: Yes Status: Resolved Assessment and plan: Resolved. Likely secondary to hypoglycemia. Will monitor. (2) Opioid overdose Current Visit: Yes Status: Resolved Assessment and plan: Resolved. Opioids discontinued at this time. Qualifiers: Encounter type: initial encounter Injury intent: accidental or unintentional Qualified Code(s): T40.2X1A - Poisoning by other opioids, accidental (unintentional), initial encounter (3) Hypoglycemia Current Visit: Yes Status: Resolved Assessment and plan: Resolved. Normal blood glucose and mentation. (4) Gastroparesis Current Visit: Yes Status: Acute Assessment and plan: Continue reglan 5 mg TIDAC. Continue PPI and sucralfate as per below. (5) Hematemesis Current Visit: Yes Status: Resolved Assessment and plan: Resolved. H/H stable. GI consulted; appreciate input. S/P EGD. Continue PPI and sucralfate QID. Continue reglan as per above for gastroparesis. Recheck CBC in AM. Nephrology consulted for anemia secondary to renal disease; appreciate input. Advanced to regular diabetic diet today. Qualifiers: Nausea presence: with nausea Qualified Code(s): K92.0 - Hematemesis (6) Decubitus ulcer of sacral region, stage 3 Current Visit: Yes Status: Chronic Assessment and plan: Wound culture with MDR E. coli. Wound care consulted; will follow recommendations. ID consulted; appreciate input. Per ID recommendations, likely not significant source of infection. Will continue IV vancomycin and IV zosyn for pneumonia and UTI. Turn and position Q2H and up to chair TID with assistance. Recheck CBC in AM. (7) Leukocytosis Current Visit: Yes Status: Acute Assessment and plan: Resolved. Chronic urinary colonization. Stage II decubitus sacral ulcer. Wound culture with MDR E. coli. Blood cultures pending. Continue IV vancomycin and IV zosyn. ID consulted as per above; appreciate input. Will await antibiotic recommendations for outpatient treatment from ID tomorrow, then plan for discharge to SNF. Wound care consulted. Recheck CBC in AM. Qualifiers: Leukocytosis type: unspecified Qualified Code(s): D72.829 - Elevated white blood cell count, unspecified (8) Pneumonia Current Visit: No Status: Acute Assessment and plan: Obtain CT chest. Continue IV vancomycin and IV zosyn. ID consulted as per above; appreciate input. Will await antibiotic recommendations for outpatient treatment from ID tomorrow, then plan for discharge to SNF. Qualifiers: Pneumonia type: due to unspecified organism Laterality: unspecified laterality Lung location: unspecified part of lung Qualified Code(s): J18.9 - Pneumonia, unspecified organism (9) ESRD (end stage renal disease) on dialysis Current Visit: Yes Status: Chronic Assessment and plan: Nephrology consulted; appreciate input. Advanced to regular diabetic diet today. (10) Anemia in chronic kidney disease, on chronic dialysis Current Visit: Yes Status: Chronic Assessment and plan: H/H stable. Nephrology consulted; appreciate input. (11) Abdominal pain with vomiting Current Visit: Yes Status: Resolved Assessment and plan: Resolved. Continue anti-emetics PRN. (12) DVT prophylaxis Current Visit: Yes Status: Acute Assessment and plan: Defer anticoagulation due to hematemesis and anemia. Continue SCDs. - Time Spent With Patient Total time spent is greater than 50% in coordination of care (as documented) at patient's floor/unit and/or counseling patient: - Subjective Interval history: Patient had no acute events overnight. She states that she feels "good" today. She denies chest pain, SOB, fever, chills, hematemesis, nausea, vomiting, or abdominal pain. She is in good spirits today. She has no complaints at this time. - Constitutional Vitals: Temp Pulse Resp BP Pulse Ox 99.5 F 88 18 123/66 100 04/07/18 15:17 04/07/18 15:17 04/07/18 15:17 04/07/18 15:17 04/07/18 15:17 General appearance: Present: cooperative, A&O X 3, pleasant, no acute distress, obese, answers questions appropriately - Respiratory Respiratory exam: Present: CTAB. Absent: accessory muscle use, rales, rhonchi, wheezes Additional comments: Normal WOB - Cardiovascular Cardiovascular exam: Present: RRR, +S1, +S2. Absent: diastolic murmur, gallop, rubs, systolic murmur Additional comments: No BLE edema - GI/Abdominal GI/Abdominal exam: Present: normal bowel sounds, soft. Absent: distended, hepatomegaly, mass, splenomegaly, tenderness - Psychiatric Psychiatric exam: Present: normal affect, normal mood. Absent: agitated, anxious, depressed - Skin Skin exam: Present: dry, warm. Absent: cyanosis, erythema, rash Internal Medicine: Result - Labs CBC & Chem 7: 04/07/18 04:45 04/07/18 04:45 Labs: Short CBC 04/07/18 Range/Units 04:45 WBC 8.3 (4.3-11.1) K/mcL Hgb 8.2 L (11.5-15.4) g/dL Hct 27.0 L (35.3-44.9) % Plt Count 140 (140-400) K/mcL Neutrophils # 5.7 (1.6-8.9) K/mcL BMP 04/07/18 04:45 Sodium 136 Potassium 3.3 L Chloride 98 Carbon Dioxide 33 H BUN 11 Creatinine 1.97 H Glucose 89 Calcium 8.1 L - ABG Interpretation ABG results: ABG ABG pH 7.36 pH Units (7.32-7.45) 04/06/18 09:17 ABG pCO2 54 mmHg (35-45) H 04/06/18 09:17 ABG pO2 77 mmHg (85-104) L 04/06/18 09:17 ABG O2 Saturation 94 % (95-98) L 04/06/18 09:17 - Impressions Impressions Chest CT 04/07/18 10:08 IMPRESSION: 1. Tree-in-bud configured opacities lower right lung and both lower lungs typical infectious process. 2. Bibasilar consolidative changes and small volume right pleural effusion. 3. Calcific atherosclerosis aorta and its branches including the coronary arteries. 4. Findings of anemia. 5. Mild cardiomegaly. D/ / Abraham Ulloa / Abraham Ulloa Interpreting Provider: Abraham Ulloa - VTE Reasons for not Prescribing Prophylaxis: Medical contraindication (Hematemesis, Anemia) Documentation of Mechanical Device: Intermittent pneumatic compression device Consult Discharge Plan - Plan Referrals: Tristen Quintana MD [Primary Care Provider] - (patient is from [facility])
[2018-04-07] MEDS ORDERED: Colistin (Colistimethate) 150 MG in 0.9 % Sodium Chloride 50 ML IVPB SCH (19:00)
[2018-04-07] MEDS: Insulin DETEMIR 100 UNIT/ML X5UNITS SQ SCH (21:27)
[2018-04-08 04:31] LABS: Basophils # 0.1 K/mcL (0.0-0.2); Basophils % 0.6 %; Eosinophils # 0.2 K/mcL (0.0-0.6); Eosinophils % 1.8 %; Hematocrit 27.1 % (35.3-44.9); Immature Granulocytes % 0.6 % (0-4); Lymphocytes # 1.9 K/mcL (0.6-4.6); Lymphocytes % 18.1 %; Mean Corpuscular HGB Conc 29.5 g/dL (31.6-35.5); Mean Corpuscular Hemoglobin 26.1 pg (28.0-33.3); Mean Corpuscular Volume 88.6 fL (83.0-100.0); Mean Platelet Volume 10.2 fL (9.4-12.4); Monocytes # 0.6 K/mcL (0.0-1.3); Monocytes % 6.2 %; Neutrophils # 7.5 K/mcL (1.6-8.9); Platelet Count 138 K/mcL (140-400); Red Blood Count 3.06 M/mcL (3.82-4.97); Red Cell Distribution Width 17.7 % (11.5-14.5); Segmented Neutrophils % 72.7 %
[2018-04-08 04:55] LABS: Calcium 8.2 mg/dL (8.6-10.3); Potassium 4.2 mEq/L (3.5-5.1)
[2018-04-08] MEDS: Piperacillin/Tazobactam 3.375 GM in 0.9 % Sodium Chloride Mini Bag 100 ML IVPB SCH (06:19)
[2018-04-08] MEDS ORDERED: 0.9 % Sodium Chloride 250 ML IVC PRN (07:19)
[2018-04-08] MEDS ORDERED: 0.9 % Sodium Chloride 1,000 ML PRIME SCH (07:30)
[2018-04-08] MEDS ORDERED: 0.9 % Sodium Chloride 1,000 ML ONE (07:36)
[2018-04-08] MEDS: Insulin LISPRO 300 UNITS/3 ML VIAL SQ SCH ×2 (08:33→13:51)
--- NOTE | 2018-04-08 09:10 | Infectious Disease Progress No ---
Date of Encounter: 04/08/18 Time of Encounter: 09:08 - Assessment and Plan (1) Severe sepsis Current Visit: Yes Status: Acute Patient presented with 2/4 SIRS criteria with tachycardia and leukocytosis She has remained afebrile and non-tachycardic during this hospital course and her white count has trended down to 8 Suspected source unclear, sacral decubitus ulcer vs. urinary vs. pulmonary Blood cultures remain negative (2) Decubitus ulcer of sacral region, stage 3 Current Visit: Yes Status: Chronic Patient has stage III to get his ulcer and follows with wound care According to recent wound care documents, she no longer has a wound VAC due to necrotic tissue surrounding the ulcer Spoke to radiologist about CT abdomen/pelvis, who states the ulcer extends 1-2 mm above the bone but there are no obvious signs of bony lesions If suspicion for osteomyelitis remains, will consider MRI without contrast Wound culture clotted on April 04 positive for multidrug-resistant Escherichia coli, Proteus, group B strep She was initially started on vancomycin and Zosyn and had improvement of her tachycardia and white count After wound culture results, patient was switched to colistin and Unasyn Discontinued colistin and Unasyn on 04/06 and restarted on vancomycin and Zosyn as she had improvement during that time Recommend IV Vanc and Zosyn for another 7 days upon discharge Obtain CRP 27, ESR 42 Await procalcitonin level Appreciate wound care consult, recommend topical gentamicin (3) Pneumonia Current Visit: No Status: Acute Repeat chest x-ray 04/06 demonstrated left midlung opacity Patient may have aspirated when she was nauseous and vomiting Await urinary antigens for Legionella and strep Antibiotic regimen as above Initial abdominal CT did demonstrate chronic bibasilar bronchitis/bronchiolitis Consider noncontrast CT of the chest for further evaluation Qualifiers: Pneumonia type: aspiration pneumonia Aspiration pneumonia type: unspecified Laterality: unspecified laterality Lung location: unspecified part of lung Qualified Code(s): J69.0 - Pneumonitis due to inhalation of food and vomit (4) Acute metabolic encephalopathy Current Visit: No Status: Acute Rapid response was called this morning as patient was minimally responsive Likely secondary to hypoglycemia as blood sugar was 20 during rapid response on 04/06 Mental status much improved this morning EEG show mild generalized encephalopathy without evidence of epileptiform activity Deferred to primary team for management of metabolic issues (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 She has been seen by urology as outpatient for this CT did demonstrate air in the renal collecting system She does have a right ureteral stent in place, unclear if this has been changed recently Consider urology consult (6) Hematemesis Current Visit: Yes Status: Resolved Qualifiers: Nausea presence: with nausea Qualified Code(s): K92.0 - Hematemesis (7) Diabetes type 2, uncontrolled Current Visit: No Status: Chronic Qualifiers: Diabetes mellitus chcf insulin use: with chcf use Diabetes mellitus complication status: with kidney complications Diabetes mellitus complication detail: with chronic kidney disease Chronic kidney disease stage : on chronic dialysis Qualified Code(s): E11.22 - Type 2 diabetes mellitus with diabetic chronic kidney disease; E11.65 - Type 2 diabetes mellitus with hyperglycemia; N18.6 - End stage renal disease; 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 She states she is feeling well this morning and has no complaints of pain or shortness of breath. She has been having a non-productive cough and thinks she has some phlegm in her chest. Denies any fever, nausea, vomiting, or diarrhea. Infect Dis PN-Objective Data - Labs CBC & Chem 7: 04/08/18 04:18 04/08/18 04:00 Labs: Laboratory Results - last 24 hr 04/07/18 04/07/18 04/07/18 08:05 11:43 16:26 WBC RBC Hgb Hct MCV MCH MCHC RDW Plt Count MPV Immature Gran % Seg Neutrophils % Lymphocytes % Monocytes % Eosinophils % Basophils % Neutrophils # Lymphocytes # Monocytes # Eosinophils # Basophils # Sodium Potassium Chloride Carbon Dioxide BUN Creatinine Est GFR ( Amer) Est GFR (Non-Af Amer) BUN/Creatinine Ratio Glucose POC Glucose 189 H 259 H 169 H Calculated Osmolality Calcium Random Vancomycin 04/07/18 04/08/18 04/08/18 20:14 04:00 04:18 WBC 10.2 RBC 3.06 L Hgb 8.0 L Hct 27.1 L MCV 88.6 MCH 26.1 L MCHC 29.5 L RDW 17.7 H Plt Count 138 L MPV 10.2 Immature Gran % 0.6 Seg Neutrophils % 72.7 Lymphocytes % 18.1 Monocytes % 6.2 Eosinophils % 1.8 Basophils % 0.6 Neutrophils # 7.5 Lymphocytes # 1.9 Monocytes # 0.6 Eosinophils # 0.2 Basophils # 0.1 Sodium 135 L Potassium 4.2 D Chloride 99 Carbon Dioxide 31 H BUN 18 Creatinine 2.69 H Est GFR ( Amer) 22 L Est GFR (Non-Af Amer) 18 L BUN/Creatinine Ratio 7 Glucose 104 POC Glucose 336 H Calculated Osmolality 282 Calcium 8.2 L Random Vancomycin 21 Cultures: Cultures 04/07/18 14:38 Legionella Antigen - Final Urine,Catheterized Streptococcus pneumoniae Antigen (M - Final - Impressions Impressions Chest CT 04/07/18 10:08 IMPRESSION: 1. Tree-in-bud configured opacities lower right lung and both lower lungs typical infectious process. 2. Bibasilar consolidative changes and small volume right pleural effusion. 3. Calcific atherosclerosis aorta and its branches including the coronary arteries. 4. Findings of anemia. 5. Mild cardiomegaly. D/ / Abraham Ulloa / Abraham Ulloa Interpreting Provider: Abraham Ulloa Exam - Constitutional Vitals: Temp Pulse Resp BP Pulse Ox 98.0 F 84 18 112/61 100 04/08/18 07:28 04/08/18 07:28 04/08/18 07:28 04/08/18 07:28 04/08/18 07:28 General appearance: cooperative, no acute distress, no febrile - Head Head exam: Present: atraumatic, normocephalic - Respiratory Respiratory exam: Present: rhonchi. Absent: accessory muscle use, respiratory distress, tachypnea - Cardiovascular Cardiovascular exam: Present: RRR. Absent: irregular rhythm, systolic murmur, tachycardia - GI/Abdominal GI/Abdominal exam: Present: normal bowel sounds, soft. Absent: tenderness - Extremities Exam Extremities exam: Present: pedal edema - VTE Reasons for not Prescribing Prophylaxis: Medical contraindication (Hematemesis, Anemia) Documentation of Mechanical Device: Intermittent pneumatic compression device Consult Discharge Plan - Plan Additional Instructions: Follow up with ECF physician in 2-3 days after discharge. Recheck BMP and CBC at that time. Follow up on final hospital blood cultures at that time. Follow up with wound care Dr. Solorzano as directed. Referrals: Tristen Quintana MD [Primary Care Provider] - (patient is from [facility]) Prescriptions: Piperacillin/Tazobactam [Zosyn] 3.375 gm IVPB Q12HR 7 Days #14 vial Gabapentin [Neurontin] 100 mg PO TID 3 Days #9 capsule Gentamicin Oint [Garamycin] 1 appl TP QID 3 Days #1 tube Metoclopramide [Reglan] 5 mg PO TIDAC 3 Days #9 ud.liq Omeprazole [PriLOSEC] 40 mg PO DAILY 3 Days #3 capsule. OxyCODONE/APAP 10/325 [Percocet 10/325 MG] 1 tab PO Q6H PRN 3 Days #12 tablet PRN Reason: Severe Pain Sodium Hypochlorite 0.25% [Dakin's (Half-Strength 0.25%)] 1 appl TP BID 3 Days # 1 bottle Sucralfate [Carafate] 1 gm PO QIDAC 3 Days #12 tablet Vancomycin [Vancocin] 500 each IV MOWEFR #3 vial - Attending Attestation I examined this patient and my medical decision-making was reviewed with the Resident Physician. I agree with the documented findings, disposition and treatment plan as described except to the extent set forth below.
--- NOTE | 2018-04-08 10:15 | Nephrology Progress Note ---
Date of Encounter: 04/08/18 Time of Encounter: 10:14 - Assessment and Plan (1) ESRD (end stage renal disease) on dialysis Current Visit: Yes Status: Chronic HD MWF at [facility]. HD today. Continue to avoid nephrotoxins and renal dose all medications. (2) Abdominal pain with vomiting Current Visit: Yes Status: Resolved Per primary team. (3) Congestive heart failure Current Visit: Yes Status: Chronic Per primary team. Qualifiers: Heart failure type: unspecified Qualified Code(s): I50.9 - Heart failure, unspecified Subjective Principal diagnosis: ESRD Interval history: Pt seen and examined during HD, doing well. No complaints. Objective - Vital Signs Vital signs: Vital Signs Temp Pulse Resp BP Pulse Ox 04/08/18 07:28 98.0 F 84 18 112/61 100 04/08/18 04:06 97.9 F 82 18 107/51 100 04/07/18 23:35 98.2 F 89 17 111/61 100 04/07/18 20:10 16 97 04/07/18 19:21 98.3 F 86 18 129/50 100 04/07/18 15:17 99.5 F 88 18 123/66 100 04/07/18 11:50 98.4 F 77 17 126/68 100 Intake and Output 04/07/18 04/08/18 04/08/18 23:59 07:59 15:59 Intake Total 100 / 100 360 / 360 Balance 100 / 100 360 / 360 Intake: IV Fluids 100 / 100 Zosyn 3.375 GM In 0.9 % Sodium 100 / 100 Chloride (Mini-Bag +) 100 ML @ 25 mls/hr IVPB Q12HR [facility] Rx#: [id number] Oral 360 / 360 Other: Meal Breakfast Percent of Meal Consumed 15% Stool Size Large Large Stool Consistency formed loose Stool Characteristics Mucoid Stool Color Brown Brown Weight 99 kg Blood Glucose* 336 79 - General Appearance General appearance: Present: obese, chronically ill EENT: Present: ATNC, hearing intact, vision intact Neck: Present: supple Respiratory: Present: clear Cardiology: Present: edema (Trace bilateral lower extremities.), normal S1, normal S2 Dialysis Vascular Access: Arteriovenous Fistula thrill: Yes bruit: Yes Gastrointestinal: Present: normoactive bowel sounds, no tenderness, no guarding Integumentary: Present: no rash, warm and dry Neurologic: Present: alert and oriented x3 Psychiatric: Present: mood/affect appropriate, cooperative - Lab 04/08/18 04:18 04/08/18 04:00 Most recent lab results ABG pH 7.36 pH Units (7.32-7.45) 04/06/18 09:17 ABG pCO2 54 mmHg (35-45) H 04/06/18 09:17 ABG pO2 77 mmHg (85-104) L 04/06/18 09:17 ABG HCO3 31 mEq/L (21-27) H 04/06/18 09:17 ABG O2 Saturation 94 % (95-98) L 04/06/18 09:17 Calcium 8.2 mg/dL (8.6-10.3) L 04/08/18 04:00 - VTE Reasons for not Prescribing Prophylaxis: Medical contraindication (Hematemesis, Anemia) Documentation of Mechanical Device: Intermittent pneumatic compression device Consult Discharge Plan - Plan Referrals: Tristen Quintana MD [Primary Care Provider] - (patient is from [facility])
[2018-04-08] MEDS: Budesonide/Formoterol 160/4.5 MDI IH SCH (11:17)
[2018-04-08] MEDS: Metoclopramide 10 MG/10 ML UD.LIQ PO SCH ×2 (12:06→13:51)
[2018-04-08] MEDS: Calcium Acetate 667 MG CAPSULE PO SCH ×2 (12:06→13:50)
[2018-04-08] MEDS: Sucralfate 1 GM TABLET PO SCH ×2 (12:06→13:50)
[2018-04-08] MEDS: amLODIPine 5 MG TABLET PO SCH (13:50)
[2018-04-08] MEDS: Gabapentin 100 MG CAPSULE PO SCH ×2 (13:50→14:01)
[2018-04-08] MEDS: ARIPiprazole 10 MG TABLET PO SCH (13:50)
[2018-04-08] MEDS: Aspirin Enteric Coated 81 MG Tablet PO SCH (13:51)
[2018-04-08] MEDS: metOLazone 5 MG TABLET PO SCH (13:51)
[2018-04-08] MEDS: Renal Vitamin 1 MG CAPSULE PO SCH (13:51)
[2018-04-08] MEDS: Gentamicin Oint 15 GM TUBE TP SCH ×2 (13:53→13:54)
[2018-04-08] MEDS: Lactobacillus 1 EACH CAP.SPRINK PO SCH (13:55)
[2018-04-08] MEDS ORDERED: Vancomycin 500 MG in 0.9 % Sodium Chloride Mini Bag 100 ML IVPB ONE (14:00)
--- NOTE | 2018-04-08 14:00 | Discharge Summary ---
- NOTES TO OUTPATIENT PROVIDER Notes to Outpatient Provider: Follow up with ECF physician in 2-3 days after discharge. Recheck BMP and CBC at that time. Follow up on final hospital blood cultures at that time. Follow up with wound care Dr. Solorzano as directed. Orders not resulted at time of discharge: Pending orders 04/07/18 04:45 Procalcitonin AM 0400 04/09/18 04:00 Basic Metabolic Panel AM 0400 Complete Blood Count [HEME] AM 0400 Date of Encounter: 04/08/18 Time of Encounter: 13:57 - Discharge Diagnosis (1) Hematemesis Priority: Primary Status: Resolved Qualifiers: Nausea presence: with nausea Qualified Code(s): K92.0 - Hematemesis (2) Encephalopathy Priority: Secondary Status: Resolved (3) Opioid overdose Priority: Secondary Status: Resolved Qualifiers: Encounter type: initial encounter Injury intent: accidental or unintentional Qualified Code(s): T40.2X1A - Poisoning by other opioids, accidental (unintentional), initial encounter (4) Hypoglycemia Priority: Secondary Status: Resolved (5) Gastroparesis Priority: Secondary Status: Acute (6) Decubitus ulcer of sacral region, stage 3 Priority: Secondary Status: Chronic (7) Leukocytosis Priority: Secondary Status: Resolved Qualifiers: Leukocytosis type: unspecified Qualified Code(s): D72.829 - Elevated white blood cell count, unspecified (8) Pneumonia Priority: Secondary Status: Acute Qualifiers: Pneumonia type: due to unspecified organism Laterality: unspecified laterality Lung location: unspecified part of lung Qualified Code(s): J18.9 - Pneumonia, unspecified organism (9) ESRD (end stage renal disease) on dialysis Priority: Secondary Status: Chronic (10) Anemia in chronic kidney disease, on chronic dialysis Priority: Secondary Status: Chronic (11) Abdominal pain with vomiting Priority: Secondary Status: Resolved (12) DVT prophylaxis Priority: Secondary Status: Acute Hospital course: Ms. Riley is a 63 year old female admitted for hematemesis, abdominal pain, nausea, and vomiting. Patient admitted to general medical floor with telemetry. H/H remained stable throughout admission at her baseline chronic anemia. She was started on IV octreotide and IV PPI. GI was consulted. She had EGD that showed healed esophageal ulcers and gastroparesis. IV drips were discontinued, and she was started on PO PPI and sucralfate. GI cocktail was used PRN for esophageal pain. No further episodes of hematemesis after scope. Reglan was added to aid with gastroparesis. She had leukocytosis upon admission. She was started on IV vancomycin and IV zosyn. ID was consulted. Possible sources considered were UTI and stage III sacral decubitus ulcer. ID did not feel this was due to sacral ulcer, and recommended topical gentamycin for that. They also recommended continuing IV vancomycin and IV zosyn due to continued improvement of leukocytosis. She had rapid response 2 days prior to discharge. She was somnolent and difficult to arouse. She was found to be hypoglycemic. Mental status improved with dextrose and narcan. Home long-acting opioid was discontinued due to gastroparesis and decreased renal clearance due to ESRD. CXR during rapid response showed possible pneumonia. CT chest confirmed pneumonia. She has remained on IV vancomycin and IV zosyn as per above. Nephrology was consulted and she received HD per schedule. On day of discharge, I confirmed with ID on antibiotic course. They recommended 7 more days of IV vancomycin and IV zosyn at [facility]. I confirmed dosage with pharmacist and provided prescriptions. She has been accepted back at [facility]. She will follow up with F physician in 2-3 days after discharge. They can recheck BMP and CBC at that time. They can follow up on final hospital blood cultures at that time. She will follow up with wound care Dr. Solorzano as directed. Patient has met maximum benefit of this hospitalization and will be discharged to [facility] in stable condition. Discharge discussed with: patient, nurse, social work, networks computer consultant (Infectious Disease Dr. Molina), other (Pharmacist) - Time Spent with Patient Total time spent providing and/or coordinating discharge services: Greater than 30 minutes - Discharge Medications Prescriptions: Piperacillin/Tazobactam [Zosyn] 3.375 gm IVPB Q12HR 7 Days #14 vial Gabapentin [Neurontin] 100 mg PO TID 3 Days #9 capsule Gentamicin Oint [Garamycin] 1 appl TP QID 3 Days #1 tube Metoclopramide [Reglan] 5 mg PO TIDAC 3 Days #9 ud.liq Omeprazole [PriLOSEC] 40 mg PO DAILY 3 Days #3 capsule. OxyCODONE/APAP 10/325 [Percocet 10/325 MG] 1 tab PO Q6H PRN 3 Days #12 tablet PRN Reason: Severe Pain Sodium Hypochlorite 0.25% [Dakin's (Half-Strength 0.25%)] 1 appl TP BID 3 Days # 1 bottle Sucralfate [Carafate] 1 gm PO QIDAC 3 Days #12 tablet Vancomycin [Vancocin] 500 each IV MOWEFR #3 vial Home Medications: Colestipol HCl [Colestid] 1 gm PO BID 06/12/15 [History] Calcium Acetate [Phos-LO] 1,334 mg PO TIDWM 09/06/16 [History] Folic Acid/Vit Bcomp,C [Renal Vitamin Tablet] 0.8 mg PO DAILY 04/15/17 [History] ARIPiprazole [Abilify] 10 mg PO DAILY 09/13/17 [History] Aspirin Enteric Coated [Aspirin EC] 81 mg PO DAILY 09/13/17 [History] Budesonide/Formoterol 160/4.5 [Symbicort 160/4.5] 2 puff IH BIDR 09/13/17 [ History] Cholecalciferol (Vitamin D3) [Vitamin D3] 50,000 unit PO TH 09/13/17 [History] Sennosides [Senna] 8.6 mg PO BID PRN 09/13/17 [History] Sevelamer [Renvela] 800 mg PO TID 09/13/17 [History] Albuterol Neb [AccuNeb] 0.63 mg IH Q6H PRN 10/18/17 [History] Oxybutynin [Ditropan] 5 mg PO TID 11/11/17 [History] Insulin LISPRO [Humalog Kwikpen U-100] 0 unit SQ ACHS 11/25/17 [History] Acetaminophen [Tylenol] 650 mg PO Q6HR PRN tablet 12/14/17 [Rx] amLODIPine [Norvasc] 5 mg PO DAILY 12/30/17 [History] Clopidogrel [Plavix] 75 mg PO DAILY 02/03/18 [History] Saccharomyces Boulardii [Florastor] 250 mg PO BID #20 capsule 02/09/18 [Rx] Rosuvastatin Calcium [Crestor] 20 mg PO DAILY 02/27/18 [History] Amitriptyline [Elavil] 50 mg PO HS tablet 03/24/18 [Rx] Carvedilol [Coreg] 6.25 mg PO BIDWM tablet 03/30/18 [Rx] Darbepoetin [Aranesp] 60 mcg SQ QWEEK syringe 03/30/18 [Rx] Insulin DETEMIR [Levemir] 10 unit SQ HS 04/04/18 [History] metOLazone [Zaroxolyn] 5 mg PO DAILY 04/04/18 [History] Gabapentin [Neurontin] 100 mg PO TID 3 Days #9 capsule 04/08/18 [Rx] Gentamicin Oint [Garamycin] 1 appl TP QID 3 Days #1 tube 04/08/18 [Rx] Metoclopramide [Reglan] 5 mg PO TIDAC 3 Days #9 ud.liq 04/08/18 [Rx] Omeprazole [PriLOSEC] 40 mg PO DAILY 3 Days #3 capsule. 04/08/18 [Rx] OxyCODONE/APAP 10/325 [Percocet 10/325 MG] 1 tab PO Q6H PRN 3 Days #12 tablet [Rx] Piperacillin/Tazobactam [Zosyn] 3.375 gm IVPB Q12HR 7 Days #14 vial 04/08/18 [Rx ] Sodium Hypochlorite 0.25% [Dakin's (Half-Strength 0.25%)] 1 appl TP BID 3 Days # 1 bottle 04/08/18 [Rx] Sucralfate [Carafate] 1 gm PO QIDAC 3 Days #12 tablet 04/08/18 [Rx] Vancomycin [Vancocin] 500 each IV MOWEFR #3 vial 04/08/18 [Rx] Allergies/Adverse Reactions: 3 Allergy/AdvReac Type Severity Reaction Status Date / Time No Known Allergies Allergy Verified 03/28/18 13:51 Date of admission: 04/04/18 09:07 Primary care physician: Tristen Quintana MD Consults: 04/04/18 09:15 Consult to Dialysis [CONS] ONCE 04/04/18 11:21 Consult to Gastroenterology [CONS] Stat Consulting Provider: Gastroenterology [place] Reason for Consult: hematemesis Time Notified: 11:21 Call Completed: Yes 04/04/18 13:50 Consult to [facility] [CONS] Routine Reason for SW Consult: from [facility] 04/04/18 18:07 Consult to Wound Care [CONS] Routine Reason for Consult: stage 3 coccyx Call Completed: Yes 04/05/18 08:00 Consult to Dialysis [CONS] ONCE 04/05/18 09:57 Consult to Occupational Therapy [CONS] Routine Comment: Evaluate, develop and implement POC Reason for Consult: needs pre-cert to rtn to ecf Does patient have active BEDREST order?: No Is patient medically & hemodynamically stable?: Yes Consult to Physical Therapy [CONS] Routine Comment: Evaluate, develop and implement POC Reason for Consult: needs pre-cert to rtn to ecf Does patient have active BEDREST order?: No Is patient medically & hemodynamically stable?: Yes 04/06/18 07:45 Consult to Dialysis [CONS] ONCE 04/06/18 10:12 Consult to Infectious Diseases [CONS] Routine Consulting Provider: Infectious Disease Olivia Reason for Consult: MDR E. coli Sacral Decubitis Wound Call Completed: Yes 04/06/18 12:49 Consult to Interpret Exam [CONS] Routine Consulting Provider: You Hill Consult to Interpret Exam: Interpret EEG 04/07/18 13:25 Consult to [facility] [CONS] Stat Reason for SW Consult: Plan for discharge today to ECF. Does patient have bed available at [facility]? Thanks. 04/08/18 07:30 Consult to Dialysis [CONS] ONCE Discharging clinician: Luis Manuel Robledo Anticipated date of discharge: 04/08/18 - Constitutional Vitals: Temp Pulse Resp BP Pulse Ox 97.6 F 94 18 140/87 92 04/08/18 13:49 04/08/18 13:49 04/08/18 13:49 04/08/18 13:49 04/08/18 13:49 General appearance: Present: cooperative, A&O X 3, pleasant, no acute distress, obese, answers questions appropriately - Respiratory Respiratory exam: Present: CTAB. Absent: accessory muscle use, rales, rhonchi, wheezes Additional comments: Normal WOB - Cardiovascular Cardiovascular exam: Present: RRR, +S1, +S2. Absent: diastolic murmur, gallop, rubs, systolic murmur Additional comments: No BLE edema - GI/Abdominal GI/Abdominal exam: Present: normal bowel sounds, soft. Absent: distended, hepatomegaly, mass, splenomegaly, tenderness - Psychiatric Psychiatric exam: Present: normal affect, normal mood. Absent: agitated, anxious, depressed - Skin Skin exam: Present: dry, intact, warm. Absent: cyanosis, rash - Patient Status Disposition: Transfer SNF Condition: Good Overall status at discharge: patient is progressing back to baseline - Discharge Instructions Follow Up With: Tristen Quintana MD [Primary Care Provider] - (patient is from [facility]) Forms: ED Satisfaction Letter, Work/School Release Additional Instructions: Follow up with ECF physician in 2-3 days after discharge. Recheck BMP and CBC at that time. Follow up on final hospital blood cultures at that time. Follow up with wound care Dr. Solorzano as directed. - Diet and Activity Activity: as per physical therapy Diet: diabetic diet, low fat, low cholesterol, low salt diet, other (Cardiac Diet, Renal Diet) - VTE Reasons for not Prescribing Prophylaxis: Medical contraindication (Hematemesis, Anemia) Documentation of Mechanical Device: Intermittent pneumatic compression device
[2018-04-08 15:29] VITALS: BP 121/66
--- NOTE | 2018-04-08 15:43 | Physician Discharge Referral ---
ExtendedCare Referral Info Transfer To: [facility] ECF Provider in Charge after Transfer: Other (ECF Physician) Institutional Level of Care: Skilled - Diagnosis (1) Hematemesis Priority: Primary Status: Resolved (2) Encephalopathy Priority: Secondary Status: Resolved (3) Opioid overdose Priority: Secondary Status: Resolved (4) Hypoglycemia Priority: Secondary Status: Resolved (5) Gastroparesis Priority: Secondary Status: Acute (6) Decubitus ulcer of sacral region, stage 3 Priority: Secondary Status: Chronic (7) Leukocytosis Priority: Secondary Status: Resolved (8) Pneumonia Priority: Secondary Status: Acute (9) ESRD (end stage renal disease) on dialysis Priority: Secondary Status: Chronic (10) Anemia in chronic kidney disease, on chronic dialysis Priority: Secondary Status: Chronic (11) Abdominal pain with vomiting Priority: Secondary Status: Resolved (12) DVT prophylaxis Priority: Secondary Status: Acute Prognosis: Fair Aware of Diagnosis: Patient Aware of Prognosis: Patient - Transfer Medications Prescriptions: Piperacillin/Tazobactam [Zosyn] 3.375 gm IVPB Q12HR 7 Days #14 vial Gabapentin [Neurontin] 100 mg PO TID 3 Days #9 capsule Gentamicin Oint [Garamycin] 1 appl TP QID 3 Days #1 tube Metoclopramide [Reglan] 5 mg PO TIDAC 3 Days #9 ud.liq Omeprazole [PriLOSEC] 40 mg PO DAILY 3 Days #3 capsule. OxyCODONE/APAP 10/325 [Percocet 10/325 MG] 1 tab PO Q6H PRN 3 Days #12 tablet PRN Reason: Severe Pain Sodium Hypochlorite 0.25% [Dakin's (Half-Strength 0.25%)] 1 appl TP BID 3 Days # 1 bottle Sucralfate [Carafate] 1 gm PO QIDAC 3 Days #12 tablet Vancomycin [Vancocin] 500 each IV MOWEFR #3 vial Home Medications: Colestipol HCl [Colestid] 1 gm PO BID 06/12/15 [History] Calcium Acetate [Phos-LO] 1,334 mg PO TIDWM 09/06/16 [History] Folic Acid/Vit Bcomp,C [Renal Vitamin Tablet] 0.8 mg PO DAILY 04/15/17 [History] ARIPiprazole [Abilify] 10 mg PO DAILY 09/13/17 [History] Aspirin Enteric Coated [Aspirin EC] 81 mg PO DAILY 09/13/17 [History] Budesonide/Formoterol 160/4.5 [Symbicort 160/4.5] 2 puff IH BIDR 09/13/17 [ History] Cholecalciferol (Vitamin D3) [Vitamin D3] 50,000 unit PO TH 09/13/17 [History] Sennosides [Senna] 8.6 mg PO BID PRN 09/13/17 [History] Sevelamer [Renvela] 800 mg PO TID 09/13/17 [History] Albuterol Neb [AccuNeb] 0.63 mg IH Q6H PRN 10/18/17 [History] Oxybutynin [Ditropan] 5 mg PO TID 11/11/17 [History] Insulin LISPRO [Humalog Kwikpen U-100] 0 unit SQ ACHS 11/25/17 [History] Acetaminophen [Tylenol] 650 mg PO Q6HR PRN tablet 12/14/17 [Rx] amLODIPine [Norvasc] 5 mg PO DAILY 12/30/17 [History] Clopidogrel [Plavix] 75 mg PO DAILY 02/03/18 [History] Saccharomyces Boulardii [Florastor] 250 mg PO BID #20 capsule 02/09/18 [Rx] Rosuvastatin Calcium [Crestor] 20 mg PO DAILY 02/27/18 [History] Amitriptyline [Elavil] 50 mg PO HS tablet 03/24/18 [Rx] Carvedilol [Coreg] 6.25 mg PO BIDWM tablet 03/30/18 [Rx] Darbepoetin [Aranesp] 60 mcg SQ QWEEK syringe 03/30/18 [Rx] Insulin DETEMIR [Levemir] 10 unit SQ HS 04/04/18 [History] metOLazone [Zaroxolyn] 5 mg PO DAILY 04/04/18 [History] Gabapentin [Neurontin] 100 mg PO TID 3 Days #9 capsule 04/08/18 [Rx] Gentamicin Oint [Garamycin] 1 appl TP QID 3 Days #1 tube 04/08/18 [Rx] Metoclopramide [Reglan] 5 mg PO TIDAC 3 Days #9 ud.liq 04/08/18 [Rx] Omeprazole [PriLOSEC] 40 mg PO DAILY 3 Days #3 capsule. 04/08/18 [Rx] OxyCODONE/APAP 10/325 [Percocet 10/325 MG] 1 tab PO Q6H PRN 3 Days #12 tablet [Rx] Piperacillin/Tazobactam [Zosyn] 3.375 gm IVPB Q12HR 7 Days #14 vial 04/08/18 [Rx ] Sodium Hypochlorite 0.25% [Dakin's (Half-Strength 0.25%)] 1 appl TP BID 3 Days # 1 bottle 04/08/18 [Rx] Sucralfate [Carafate] 1 gm PO QIDAC 3 Days #12 tablet 04/08/18 [Rx] Vancomycin [Vancocin] 500 each IV MOWEFR #3 vial 04/08/18 [Rx] Allergies/Adverse Reactions: 3 Allergy/AdvReac Type Severity Reaction Status Date / Time No Known Allergies Allergy Verified 03/28/18 13:51 - Respiratory Orders None Smoking Cessation: Smoking cessation has been advised. For more information, call the [place] Tobacco Quit Line at 2-077-BYUU-NOW. - Lab Orders Lab Orders: CBC (in 2-3 days after discharge), Other (include drug levels w/ frequency) (BMP in 2-3 days after discharge) - Advance Directives Code Status: Full Code - Mobility Orders Other (Per physical therapy) - Rehabiliation Orders Rehab Potential: Fair Rehab Orders: Evaluation for Physical Therapy, Evaluation for Occupational Therapy - Treatments List/Other: Sacral Decubitus ulcer dressings per wound care. - Diet Orders No Added Salt (LISA), No Concentrated Sweets, Renal, Cardiac CERTIFICATION: I certify that the transfer of the above named patient to an Extended Care Facility is necessary for the continuing treatment of the diagnosis listed. The above information is true and accurate reflection of patient's current condition. Confidential - Redisclosure prohibited without a patient's written consent.
[2018-04-08] MEDS ORDERED: Aminoglycoside Consult 1 EACH MC ONE (16:22)
== END 2018-04-08 16:23 ==
LOC: 2ANU 02:41 → EMEROO 02:41 → 2ANU 12:08
PROVIDERS: ADMIT Internal Medicine; ATTEND Internal Medicine

== ENCOUNTER 2018-04-11 14:38 | Observation (INO) ==
--- NOTE | 2018-04-11 14:42 | Emergency Department Note ---
Disposition Clinical Impression: Abdominal pain Qualifiers: Abdominal location: generalized Qualified Code(s): R10.84 - Generalized abdominal pain Disposition: Still a Patient Referrals: Tristen Quintana MD [Primary Care Provider] - Forms: ED Satisfaction Letter, Work/School Release General Adult HPI - General Chief complaint: ED Abdominal Pain Stated complaint: Abdominal Pain/Vomitting - Related Data Home Medications Medication Instructions Recorded Confirmed Colestipol HCl [Colestid] 1 gm PO BID 06/12/15 04/04/18 Calcium Acetate [Phos-LO] 1,334 mg PO TIDWM 09/06/16 04/04/18 Folic Acid/Vit Bcomp,C [Renal 0.8 mg PO DAILY 04/15/17 04/04/18 Vitamin Tablet] ARIPiprazole [Abilify] 10 mg PO DAILY 09/13/17 04/04/18 Aspirin Enteric Coated [Aspirin EC] 81 mg PO DAILY 09/13/17 04/04/18 Budesonide/Formoterol 160/4.5 2 puff IH BIDR 09/13/17 04/04/18 [Symbicort 160/4.5] Cholecalciferol (Vitamin D3) 50,000 unit PO TH 09/13/17 04/04/18 [Vitamin D3] Sennosides [Senna] 8.6 mg PO BID PRN 09/13/17 04/04/18 Sevelamer [Renvela] 800 mg PO TID 09/13/17 04/04/18 Albuterol Neb [AccuNeb] 0.63 mg IH Q6H PRN 10/18/17 04/04/18 Oxybutynin [Ditropan] 5 mg PO TID 11/11/17 04/04/18 Insulin LISPRO [Humalog Kwikpen 0 unit SQ ACHS 11/25/17 04/04/18 U-100] amLODIPine [Norvasc] 5 mg PO DAILY 12/30/17 04/04/18 Clopidogrel [Plavix] 75 mg PO DAILY 02/03/18 04/04/18 Rosuvastatin Calcium [Crestor] 20 mg PO DAILY 02/27/18 04/04/18 Insulin DETEMIR [Levemir] 10 unit SQ HS 04/04/18 04/08/18 metOLazone [Zaroxolyn] 5 mg PO DAILY 04/04/18 04/04/18 Previous Rx's Medication Instructions Recorded Acetaminophen [Tylenol] 650 mg PO Q6HR PRN tablet 12/14/17 Saccharomyces Boulardii [Florastor] 250 mg PO BID #20 capsule 02/09/18 Amitriptyline [Elavil] 50 mg PO HS tablet 03/24/18 Carvedilol [Coreg] 6.25 mg PO BIDWM tablet 03/30/18 Darbepoetin [Aranesp] 60 mcg SQ QWEEK syringe 03/30/18 Gabapentin [Neurontin] 100 mg PO TID 3 Days #9 capsule 04/08/18 Gentamicin Oint [Garamycin] 1 appl TP QID 3 Days #1 tube 04/08/18 Metoclopramide [Reglan] 5 mg PO TIDAC 3 Days #9 ud.liq 04/08/18 Omeprazole [PriLOSEC] 40 mg PO DAILY 3 Days #3 capsule. 04/08/18 OxyCODONE/APAP 10/325 [Percocet 1 tab PO Q6H PRN 3 Days #12 tablet 04/08/18 10/325 MG] Piperacillin/Tazobactam [Zosyn] 3.375 gm IVPB Q12HR 7 Days #14 vial 04/08/18 Sodium Hypochlorite 0.25% [Dakin's 1 appl TP BID 3 Days #1 bottle 04/08/18 (Half-Strength 0.25%)] Sucralfate [Carafate] 1 gm PO QIDAC 3 Days #12 tablet 04/08/18 Vancomycin [Vancocin] 500 each IV MOWEFR #3 vial 04/08/18 Allergies Allergy/AdvReac Type Severity Reaction Status Date / Time No Known Allergies Allergy Verified 03/28/18 13:51 Past Medical History - Past Medical History Medical history: Reports: atrial fibrillation, CHF, COPD, diabetes, myocardial infarction, renal disease Surgical history: Reports: angioplasty/stent, appendectomy, cholecystectomy, coronary bypass (CABG), hysterectomy, knee replacement, other, IVC filter Psychiatric history: Reports: anxiety, depression, schizophrenia, previous psychiatric hospitalization 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 I agree with the documented findings, disposition and treatment plan as described except to the extent set forth below. Patient seen with emergency medicine resident Dr. Frank Perdomo, Please see a copy of his note for details of the H&P, ED evaluation, management and disposition. I have independently evaluated the patient and confirmed appropriate portions of the history and physical exam. Briefly: 63-year-old female dialysis dependent end-stage renal disease by EMS for abdominal pain. Patient has been seen several times at noncontrast abdominal pelvic CT with no significant findings presents again to have stopped dialysis early. She was transiently hypotensive but she normalized. Patient getting abdominal pelvic CT with IV contrast. Disposition pending. Patient does have pain out of proportion resoling concerned about mesenteric ischemia or bowel angina. Time: 16:44 Vital Signs Temperature 98.1 F 04/11/18 14:38 Pulse Rate 90 04/11/18 14:38 Respiratory Rate 18 04/11/18 14:38 Blood Pressure 124/72 04/11/18 14:38 O2 Sat by Pulse Oximetry 100 04/11/18 14:38 Temperature 98.1 F 04/11/18 14:38 Pulse Rate 90 04/11/18 14:38 Respiratory Rate 18 04/11/18 14:38 Blood Pressure 124/72 04/11/18 14:38 O2 Sat by Pulse Oximetry 100 04/11/18 14:38 Oxygen Delivery Oxygen Delivery Room Air Medical Decision Making - Lab Data Result diagrams: 04/11/18 15:47 04/11/18 15:47 Lab Results 04/11/18 04/11/18 Range/Units 15:47 15:47 WBC 10.9 (4.3-11.1) K/mcL RBC 3.77 L (3.82-4.97) M/mcL Hgb 9.8 L D (11.5-15.4) g/dL Hct 32.5 L (35.3-44.9) % MCV 86.2 (83.0-100.0) fL MCH 26.0 L (28.0-33.3) pg MCHC 30.2 L (31.6-35.5) g/dL RDW 17.6 H (11.5-14.5) % Plt Count 128 L (140-400) K/mcL MPV 11.7 (9.4-12.4) fL Immature Gran % 1.2 (0-4) % Seg Neutrophils % 81.9 % Lymphocytes % 10.0 % Monocytes % 5.4 % Eosinophils % 1.0 % Basophils % 0.5 % Neutrophils # 8.9 (1.6-8.9) K/mcL Lymphocytes # 1.1 (0.6-4.6) K/mcL Monocytes # 0.6 (0.0-1.3) K/mcL Eosinophils # 0.1 (0.0-0.6) K/mcL Basophils # 0.1 (0.0-0.2) K/mcL Clumped Platelets Few A (Not Present) Sodium 133 L (136-145) mEq/L Potassium 3.9 (3.5-5.1) mEq/L Chloride 98 (98-107) mEq/L Carbon Dioxide 24 (23-29) mEq/L BUN 17 (8-23) mg/dL Creatinine 1.89 H (0.60-1.20) mg/dL Est GFR ( Amer) 32 L (> 60) Est GFR (Non-Af Amer) 27 L (> 60) BUN/Creatinine Ratio 9 (6-26) Glucose 287 H (70-105) mg/dL Calculated Osmolality 288 (280-300) Calcium 8.0 L (8.6-10.3) mg/dL Total Bilirubin 0.4 (0.3-1.0) mg/dL AST 20 (13-39) Units/L ALT 11 (7-52) Units/L Alkaline Phosphatase 186 H (34-104) Units/L Troponin I < 0.03 (< 0.04) ng/mL Serum Total Protein 5.9 L (6.4-8.9) g/dL Albumin 2.9 L (3.5-5.7) g/dL Globulin 3.0 (2.4-3.5) g/dL Albumin/Globulin Ratio 1.0 L (1.1-2.2) Lipase 12 (11-82) Units/L - EKG Data EKG #1 EKG attestation: Yes I reviewed and interpreted this EKG. EKG results narrative: 15:34 Ventricular rate 99 bpm, OR interval no P waves, QRS duration 97 ms, QT 370 ms, QTC 434 ms, normal axis. Atrial flutter with a ventricular rate of 99 bpm. No evidence of any ischemic ST changes. Same as the previous study performed on 04/06/2018.
[2018-04-11] MEDS ORDERED: Isovue-370 500 ML INFUS..BTL IV ONE (15:03)
[2018-04-11] MEDS ORDERED: Ondansetron 4 MG/2 ML VIAL IVP ONE (15:21)
[2018-04-11] MEDS ORDERED: *HR* FentaNYL (PF) 100 MCG/2 ML VIAL IVP ONE (15:21)
[2018-04-11 16:06] LABS: Basophils # 0.1 K/mcL (0.0-0.2); Basophils % 0.5 %; Eosinophils # 0.1 K/mcL (0.0-0.6); Hematocrit 32.5 % (35.3-44.9); Immature Granulocytes % 1.2 % (0-4); Lymphocytes # 1.1 K/mcL (0.6-4.6); Mean Corpuscular HGB Conc 30.2 g/dL (31.6-35.5); Mean Corpuscular Volume 86.2 fL (83.0-100.0); Mean Platelet Volume 11.7 fL (9.4-12.4); Monocytes # 0.6 K/mcL (0.0-1.3); Monocytes % 5.4 %; Neutrophils # 8.9 K/mcL (1.6-8.9); Platelet Count 128 K/mcL (140-400); Red Blood Count 3.77 M/mcL (3.82-4.97); Red Cell Distribution Width 17.6 % (11.5-14.5); Segmented Neutrophils % 81.9 %
[2018-04-11 16:29] LABS: Alanine Aminotransferase 11 Units/L (7-52); Albumin 2.9 g/dL (3.5-5.7); Alkaline Phosphatase 186 Units/L (34-104); Aspartate Amino Transferase 20 Units/L (13-39); BUN/Creatinine Ratio 9 (6-26); Bilirubin,Total 0.4 mg/dL (0.3-1.0); Blood Urea Nitrogen 17 mg/dL (8-23); Carbon Dioxide 24 mEq/L (23-29); Chloride 98 mEq/L (98-107); Glucose 287 mg/dL (70-105); Lipase 12 Units/L (11-82); Osmolality,Calculated 288 (280-300); Potassium 3.9 mEq/L (3.5-5.1); Sodium 133 mEq/L (136-145); Total Protein 5.9 g/dL (6.4-8.9); Troponin I < 0.03 ng/mL (< 0.04); eGFR For African Americans 32 (> 60); eGFR For Non-African Americans 27 (> 60)
[2018-04-11 16:37] LABS: Hemoglobin 9.8 g/dL (11.5-15.4)
[2018-04-11 16:38] LABS: Platelet Clumps Few (Not Present)
--- NOTE | 2018-04-11 17:59 | Emergency Department Note ---
Disposition Clinical Impression: Esophagitis, Cystitis Abdominal pain Qualifiers: Abdominal location: generalized Qualified Code(s): R10.84 - Generalized abdominal pain Pelvic fracture Qualifiers: Encounter type: initial encounter Pelvic bone location: ischium Fracture type: closed Fracture morphology: unspecified fracture morphology Fracture alignment: nondisplaced Laterality: left Qualified Code(s): S32.602A - Unspecified fracture of left ischium, initial encounter for closed fracture Nausea and vomiting Qualifiers: Vomiting type: unspecified Vomiting Intractability: non-intractable Qualified Code(s): R11.2 - Nausea with vomiting, unspecified Disposition: Admitted As Inpatient Condition: Fair Referrals: Tristen Quintana MD [Primary Care Provider] - Forms: ED Satisfaction Letter, Work/School Release General Adult HPI - General Chief complaint: ED Abdominal Pain Stated complaint: Abdominal Pain/Vomitting Time Seen by Provider: 04/11/18 14:52 Source: EMS Limitations: no limitations Nursing Notes Reviewed: Yes Vital Signs Reviewed: Yes - History of Present Illness HPI Narrative: 63-year-old female presents to the emergency department with concern for epigastric abdominal pain, nausea, vomiting for the last day. Patient states that she has had issues with this before. Patient is currently end-stage renal disease that is dialysis dependent on Wednesday. Patient was at dialysis today when her abdominal pain got worse. Patient does report making urine. She denies any increased urinary frequency, urgency, dysuria. Patient denies any symptoms of shortness of breath, cough. Pain Scale: 6 - Related Data Home Medications Medication Instructions Recorded Confirmed Colestipol HCl [Colestid] 1 gm PO BID 06/12/15 04/04/18 Calcium Acetate [Phos-LO] 1,334 mg PO TIDWM 09/06/16 04/04/18 Folic Acid/Vit Bcomp,C [Renal 0.8 mg PO DAILY 04/15/17 04/04/18 Vitamin Tablet] ARIPiprazole [Abilify] 10 mg PO DAILY 09/13/17 04/04/18 Aspirin Enteric Coated [Aspirin EC] 81 mg PO DAILY 09/13/17 04/04/18 Budesonide/Formoterol 160/4.5 2 puff IH BIDR 09/13/17 04/04/18 [Symbicort 160/4.5] Cholecalciferol (Vitamin D3) 50,000 unit PO TH 09/13/17 04/04/18 [Vitamin D3] Sennosides [Senna] 8.6 mg PO BID PRN 09/13/17 04/04/18 Sevelamer [Renvela] 800 mg PO TID 09/13/17 04/04/18 Albuterol Neb [AccuNeb] 0.63 mg IH Q6H PRN 10/18/17 04/04/18 Oxybutynin [Ditropan] 5 mg PO TID 11/11/17 04/04/18 Insulin LISPRO [Humalog Kwikpen 0 unit SQ ACHS 11/25/17 04/04/18 U-100] amLODIPine [Norvasc] 5 mg PO DAILY 12/30/17 04/04/18 Clopidogrel [Plavix] 75 mg PO DAILY 02/03/18 04/04/18 Rosuvastatin Calcium [Crestor] 20 mg PO DAILY 02/27/18 04/04/18 Insulin DETEMIR [Levemir] 10 unit SQ HS 04/04/18 04/08/18 metOLazone [Zaroxolyn] 5 mg PO DAILY 04/04/18 04/04/18 Previous Rx's Medication Instructions Recorded Acetaminophen [Tylenol] 650 mg PO Q6HR PRN tablet 12/14/17 Saccharomyces Boulardii [Florastor] 250 mg PO BID #20 capsule 02/09/18 Amitriptyline [Elavil] 50 mg PO HS tablet 03/24/18 Carvedilol [Coreg] 6.25 mg PO BIDWM tablet 03/30/18 Darbepoetin [Aranesp] 60 mcg SQ QWEEK syringe 03/30/18 Gabapentin [Neurontin] 100 mg PO TID 3 Days #9 capsule 04/08/18 Gentamicin Oint [Garamycin] 1 appl TP QID 3 Days #1 tube 04/08/18 Metoclopramide [Reglan] 5 mg PO TIDAC 3 Days #9 ud.liq 04/08/18 Omeprazole [PriLOSEC] 40 mg PO DAILY 3 Days #3 capsule. 04/08/18 OxyCODONE/APAP 10/325 [Percocet 1 tab PO Q6H PRN 3 Days #12 tablet 04/08/18 10/325 MG] Piperacillin/Tazobactam [Zosyn] 3.375 gm IVPB Q12HR 7 Days #14 vial 04/08/18 Sodium Hypochlorite 0.25% [Dakin's 1 appl TP BID 3 Days #1 bottle 04/08/18 (Half-Strength 0.25%)] Sucralfate [Carafate] 1 gm PO QIDAC 3 Days #12 tablet 04/08/18 Vancomycin [Vancocin] 500 each IV MOWEFR #3 vial 04/08/18 Allergies Allergy/AdvReac Type Severity Reaction Status Date / Time No Known Allergies Allergy Verified 04/11/18 18:27 All systems ED: reviewed and negative except as stated. Review of Systems: As Per HPI Constitutional: Denies: fever Cardiovascular: Denies: chest pain Respiratory: Denies: cough, dyspnea Gastrointestinal: Reports: abdominal pain, nausea, vomiting Genitourinary: Denies: urgency, dysuria, frequency Musculoskeletal: Denies: back pain Integumentary: Denies: rash Neurological: Denies: headache Past Medical History - Past Medical History Medical history: Reports: atrial fibrillation, CHF, COPD, diabetes, myocardial infarction, renal disease Surgical history: Reports: angioplasty/stent, appendectomy, cholecystectomy, coronary bypass (CABG), hysterectomy, knee replacement, other, IVC filter Psychiatric history: Reports: anxiety, depression, schizophrenia, previous psychiatric hospitalization 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 Absent: scleral icterus, conjunctival injection - ENT ENT exam: normal exam, normal oropharynx - Neck Neck exam: Present: trachea midline - Chest Chest inspection: Present: normal inspection, symmetric chest wall rise - Respiratory Respiratory exam: Present: normal lung sounds bilaterally. Absent: respiratory distress - Abdominal Exam Abdominal exam: Present: soft, tenderness. Absent: distention, guarding, rebound, rigidity Abdominal tenderness: Present: epigastrium, moderate - Back Exam Back exam: Absent: CVA tenderness (R), CVA tenderness (L) - Neurological Exam Neurological exam: Present: alert, oriented X3 - Psychiatric Psychiatric exam: Present: anxious - Skin Skin exam: Present: warm, dry, intact, normal color Course Vital Signs Temperature 98.1 F 04/11/18 14:38 Pulse Rate 90 04/11/18 14:38 Respiratory Rate 18 04/11/18 14:38 Blood Pressure 124/72 04/11/18 14:38 O2 Sat by Pulse Oximetry 100 04/11/18 14:38 Temperature 98.1 F 04/11/18 14:38 Pulse Rate 90 04/11/18 14:38 Respiratory Rate 18 04/11/18 14:38 Blood Pressure 124/72 04/11/18 14:38 O2 Sat by Pulse Oximetry 100 04/11/18 14:38 Oxygen Delivery Oxygen Delivery Room Air Medical Decision Making - MDM Narrative Medical decision making narrative: 63-year-old female presented to emergency department with concern for epigastric abdominal pain, nausea, vomiting. Patient states that this started today during dialysis. Patient reports having issues with this in the past. Chest x-ray did not reveal any acute abnormality We obtained CTA of the abdomen and pelvis due to concern for patient's risk of possible mesenteric ischemia. CT scan abdomen and pelvis revealed concern for possible bilateral pneumonia, acute inflammation of the lower esophagus, right hydronephrosis, wall thickening of the urinary bladder. Patient also has fracture of the inferior left pubic ramus that could be acute. Patient reports falling a few weeks ago. Patient initially refused obtaining a urinalysis history catheterization. We have reordered this. I spoke with the hospitalist on the phone regarding admission patient antibiotics for possible pneumonia and cystitis. He did not recommend administration of antibiotics at this time. Patient admitted for pain control for both abdominal pain, pelvic fracture, cystitis, esophagitis, as well as her symptoms of nausea vomiting. Spoke with patient regarding the plan. She agreed for admission. Abdomen/Pelvis CTA 04/11/18 15:03 IMPRESSION: The aorta and its branches show calcifications without significant stenosis or acute abnormality. Small bilateral pleural effusions with bibasilar airspace disease, atelectasis and/or pneumonia. Small hiatal hernia with at least moderate wall thickening of the distal visualized esophagus suggesting acute inflammation, increased since the prior study. Endoscopy could be performed as clinically warranted. Right ureteral stent in place. Right hydronephrosis. Fracture of the inferior left pubic ramus, acute to subacute. Wall thickening urinary bladder which shows adjacent stranding. Correlation for cystitis is recommended. D/ / Tayler Hernández Cha, MD / Tayler Hernández Cha, MD Interpreting Provider: Tayler Hernández Cha, MD Chest X-Ray 04/11/18 15:03 IMPRESSION: 1. No active pulmonary disease. 2. Stable cardiomegaly without overt failure. D/ / Rios Clay MD / Rios Clay MD Interpreting Provider: Rios Clay MD Vital Signs Temperature 98.1 F 04/11/18 14:38 Pulse Rate 90 04/11/18 14:38 Respiratory Rate 18 04/11/18 14:38 Blood Pressure 124/72 04/11/18 14:38 O2 Sat by Pulse Oximetry 100 04/11/18 14:38 Temperature 98.1 F 04/11/18 14:38 Pulse Rate 90 04/11/18 14:38 Respiratory Rate 18 04/11/18 18:32 Blood Pressure 124/54 04/11/18 18:32 O2 Sat by Pulse Oximetry 100 04/11/18 14:38 Oxygen Delivery Oxygen Delivery Room Air - Lab Data Result diagrams: 04/11/18 15:47 04/11/18 15:47 Lab Results 04/11/18 04/11/18 04/11/18 Range/Units 15:47 15:47 17:05 WBC 10.9 (4.3-11.1) K/mcL RBC 3.77 L (3.82-4.97) M/mcL Hgb 9.8 L D (11.5-15.4) g/dL Hct 32.5 L (35.3-44.9) % MCV 86.2 (83.0-100.0) fL MCH 26.0 L (28.0-33.3) pg MCHC 30.2 L (31.6-35.5) g/dL RDW 17.6 H (11.5-14.5) % Plt Count 128 L (140-400) K/mcL MPV 11.7 (9.4-12.4) fL Immature Gran % 1.2 (0-4) % Seg Neutrophils % 81.9 % Lymphocytes % 10.0 % Monocytes % 5.4 % Eosinophils % 1.0 % Basophils % 0.5 % Neutrophils # 8.9 (1.6-8.9) K/mcL Lymphocytes # 1.1 (0.6-4.6) K/mcL Monocytes # 0.6 (0.0-1.3) K/mcL Eosinophils # 0.1 (0.0-0.6) K/mcL Basophils # 0.1 (0.0-0.2) K/mcL Clumped Platelets Few A (Not Present) Sodium 133 L (136-145) mEq/L Potassium 3.9 (3.5-5.1) mEq/L Chloride 98 (98-107) mEq/L Carbon Dioxide 24 (23-29) mEq/L BUN 17 (8-23) mg/dL Creatinine 1.89 H (0.60-1.20) mg/dL Est GFR ( Amer) 32 L (> 60) Est GFR (Non-Af Amer) 27 L (> 60) BUN/Creatinine Ratio 9 (6-26) Glucose 287 H (70-105) mg/dL Calculated Osmolality 288 (280-300) Lactic Acid 1.0 (0.5-2.2) mmol/L Calcium 8.0 L (8.6-10.3) mg/dL Total Bilirubin 0.4 (0.3-1.0) mg/dL AST 20 (13-39) Units/L ALT 11 (7-52) Units/L Alkaline Phosphatase 186 H (34-104) Units/L Troponin I < 0.03 (< 0.04) ng/mL Serum Total Protein 5.9 L (6.4-8.9) g/dL Albumin 2.9 L (3.5-5.7) g/dL Globulin 3.0 (2.4-3.5) g/dL Albumin/Globulin Ratio 1.0 L (1.1-2.2) Lipase 12 (11-82) Units/L
[2018-04-11] MEDS ORDERED: Naloxone 0.4 MG/ML INJ IVP PRN (18:09)
[2018-04-11] MEDS ORDERED: Albuterol Neb 0.63 MG/3 ML VIAL IH PRN (18:12)
[2018-04-11] MEDS ORDERED: Sennosides 8.6 MG TABLET PO PRN (18:12)
[2018-04-11] MEDS ORDERED: Acetaminophen 325 MG TABLET PO PRN (18:12)
--- NOTE | 2018-04-11 18:33 | Internal Med History&Physical ---
Date of Encounter: 04/11/18 Time of Encounter: 19:00 Internal Medicine - H&P: HPI Chief complaint: Abdominal pain Admitted From: Long-term Nursing Facility Plans for Post Hospital Care: Transfer [facility] History of present illness: Ms. Riley is a 63 year old female who is a shelter resident with end- stage renal disease who is on hemodialysis who was brought to the emergency department with a chief complaint of abdominal pain. Patient is a very poor historian. Patient stated she had epigastric pain and lower abdominal pain but most of the times or murmur abdomen heart. She denied any chest pain per se. CT abdomen in the emergency room showed pubic ramus acute/subacute fracture. Patient denied any fall initially but then stated she had a fall last month. CT abdomen commented that she have possible esophagitis. Patient denied any headache no blurry vision or double vision. She is moving her bowels and she stated that her pain is improving. On my interviewing the patient in the emergency department she was doing better. Past Med Surg Social Fam HX - Past Medical History Medical history: atrial fibrillation, CHF, COPD, diabetes, myocardial infarction , renal disease Additional medical history: no defecits from previous CVA Psychiatric history: anxiety, depression, schizophrenia, previous psychiatric hospitalization - Past Surgical History Surgical History: angioplasty/stent, appendectomy, cholecystectomy, coronary bypass (CABG), hysterectomy, knee replacement, other, IVC filter Additional surgical history: CABG 2002,BILAT KNEE REPLACEMENTS,TONSILLECTOMY,3- 4 CARDIAC STENTS, ORIF RT ARM - Social History Smoking Status: Current every day smoker Smokeless Tobacco Status: No Alcohol use: none Drug use: none - Family History Father Family Member Ethnicity: Non- Living Status: Hx Family Cardiac Disorders: Yes Hx Family Respiratory Disorders: Yes Hx Family Cancer: Yes (Polycythemia) Hx Family Endocrine Disorder: Yes (DM) Mother Family Member Ethnicity: Non- Living Status: Still Living Hx Family Cardiac Disorders: Yes Hx Family Respiratory Disorders: Yes (asthma, COPD) Brother Adopted: No Family Member Ethnicity: Non- Living Status: Still Living Hx Family Cardiac Disorders: No Hx Family Respiratory Disorders: No Hx Family Cancer: No Hx Family GI Disorders: No Hx Family Endocrine Disorder: No Hx Family Neuromuscular Disorders: No Hx Family Neurologic Disorders: No Hx Family HEENT Disorders: No Hx Family Autoimmune Disorders: No Sister Adopted: No Family Member Ethnicity: Non- Living Status: Still Living Hx Family Cardiac Disorders: Yes Hx Family Respiratory Disorders: No Hx Family Cancer: No Hx Family GI Disorders: No Hx Family Endocrine Disorder: Yes Hx Family Neuromuscular Disorders: No Hx Family Neurologic Disorders: No Hx Family HEENT Disorders: No Hx Family Autoimmune Disorders: No Internal Medicine - H&P: Meds Colestipol HCl [Colestid] 1 gm PO BID 06/12/15 [History] Calcium Acetate [Phos-LO] 1,334 mg PO TIDWM 09/06/16 [History] Folic Acid/Vit Bcomp,C [Renal Vitamin Tablet] 0.8 mg PO DAILY 04/15/17 [History] ARIPiprazole [Abilify] 10 mg PO DAILY 09/13/17 [History] Aspirin Enteric Coated [Aspirin EC] 81 mg PO DAILY 09/13/17 [History] Budesonide/Formoterol 160/4.5 [Symbicort 160/4.5] 2 puff IH BIDR 09/13/17 [ History] Cholecalciferol (Vitamin D3) [Vitamin D3] 50,000 unit PO TH 09/13/17 [History] Sennosides [Senna] 8.6 mg PO BID PRN 09/13/17 [History] Sevelamer [Renvela] 800 mg PO TID 09/13/17 [History] Albuterol Neb [AccuNeb] 0.63 mg IH Q6H PRN 10/18/17 [History] Oxybutynin [Ditropan] 5 mg PO TID 11/11/17 [History] Insulin LISPRO [Humalog Kwikpen U-100] 0 unit SQ ACHS 11/25/17 [History] Acetaminophen [Tylenol] 650 mg PO Q6HR PRN tablet 12/14/17 [Rx] amLODIPine [Norvasc] 5 mg PO DAILY 12/30/17 [History] Clopidogrel [Plavix] 75 mg PO DAILY 02/03/18 [History] Saccharomyces Boulardii [Florastor] 250 mg PO BID #20 capsule 02/09/18 [Rx] Rosuvastatin Calcium [Crestor] 20 mg PO DAILY 02/27/18 [History] Amitriptyline [Elavil] 50 mg PO HS tablet 03/24/18 [Rx] Carvedilol [Coreg] 6.25 mg PO BIDWM tablet 03/30/18 [Rx] Darbepoetin [Aranesp] 60 mcg SQ QWEEK syringe 03/30/18 [Rx] Insulin DETEMIR [Levemir] 10 unit SQ HS 04/04/18 [History] metOLazone [Zaroxolyn] 5 mg PO DAILY 04/04/18 [History] Gabapentin [Neurontin] 100 mg PO TID 3 Days #9 capsule 04/08/18 [Rx] Gentamicin Oint [Garamycin] 1 appl TP QID 3 Days #1 tube 04/08/18 [Rx] Metoclopramide [Reglan] 5 mg PO TIDAC 3 Days #9 ud.liq 04/08/18 [Rx] Omeprazole [PriLOSEC] 40 mg PO DAILY 3 Days #3 capsule.dr 04/08/18 [Rx] OxyCODONE/APAP 10/325 [Percocet 10/325 MG] 1 tab PO Q6H PRN 3 Days #12 tablet [Rx] Piperacillin/Tazobactam [Zosyn] 3.375 gm IVPB Q12HR 7 Days #14 vial 04/08/18 [Rx ] Sodium Hypochlorite 0.25% [Dakin's (Half-Strength 0.25%)] 1 appl TP BID 3 Days # 1 bottle 04/08/18 [Rx] Sucralfate [Carafate] 1 gm PO QIDAC 3 Days #12 tablet 04/08/18 [Rx] Vancomycin [Vancocin] 500 each IV MOWEFR #3 vial 04/08/18 [Rx] 3 Allergy/AdvReac Type Severity Reaction Status Date / Time No Known Allergies Allergy Verified 04/11/18 18:27 All Systems PM: A 10-system review of systems was performed and is negative for pertinent findings except as documented above in the HPI. - Constitutional Vitals: Temp Pulse Resp BP Pulse Ox 98.1 F 90 18 124/72 100 04/11/18 14:38 04/11/18 14:38 04/11/18 14:38 04/11/18 14:38 04/11/18 14:38 - Head Head exam: Present: atraumatic, normocephalic - Eye Eye exam: Present: PERRL, conjuntiva pink, sclera anicteric Pupils: Present: PERRL - Neck Neck exam general surgery: Present: supple, trachea midline. Absent: lymphadenopathy - Respiratory Respiratory exam: Present: CTAB. Absent: accessory muscle use, rales, rhonchi, wheezes - Cardiovascular Cardiovascular exam: Present: RRR, +S1, +S2. Absent: diastolic murmur, gallop, rubs, systolic murmur - GI/Abdominal Additional comments: Vague abdominal tenderness mostly on the lower side - Extremities Exam Additional comments: Chronic lower extremities edema with chronic skin changes - Neurological Exam Neurological exam: Present: CN II-XII intact, oriented X3, no focal deficits. Absent: pronater drift, facial droop, speech deficit Internal Med - H&P Results - Labs CBC & Chem 7: 04/11/18 15:47 04/11/18 15:47 - Assessment and plan (1) Fracture of superior ramus of pubis Current Visit: Yes Status: Acute Assessment and plan: Patient stated that she fell almost a month ago and she is been ambulating without any problem Pain control CT abdomen was negative for any acute intra-abdominal process. Questionable esophagitis Recommend EGD possibly as an outpatient Physical therapy and occupational therapy evaluation Qualifiers: Qualified Code(s): S32.519A - Fracture of superior rim of unspecified pubis, initial encounter for closed fracture (2) Abdominal pain Current Visit: Yes Status: Acute Assessment and plan: Improving with defecation CT abdomen reviewed Probably worsening with ramus fracture Follow clinically Qualifiers: Qualified Code(s): R10.9 - Unspecified abdominal pain (3) Esophagitis Current Visit: Yes Status: Acute Assessment and plan: Continue with PPI Recommend EGD possibly as an outpatient We will get another set of troponin to rule out any possible cardiac etiology (4) End-stage renal disease on hemodialysis Current Visit: Yes Status: Acute Assessment and plan: Patient stated her hemodialysis schedule is Wednesday and Wednesday She is not uremic, not volume overloaded May consult nephrology if patient stays in the hospital, Wednesday (5) COPD (chronic obstructive pulmonary disease) Current Visit: No Status: Chronic Assessment and plan: Stable with no exacerbation Continue current management Qualifiers: COPD type: unspecified COPD Qualified Code(s): J44.9 - Chronic obstructive pulmonary disease, unspecified (6) On esomeprazole prophylaxis Current Visit: Yes Status: Acute (7) DVT prophylaxis Current Visit: Yes Status: Acute Assessment and plan: With heparin subcutaneous - Time Spent With Patient Total time spent is greater than 50% in coordination of care (as documented) at patient's floor/unit and/or counseling patient:
[2018-04-11] MEDS: Budesonide/Formoterol 160/4.5 MDI IH SCH (19:56)
[2018-04-11] MEDS ORDERED: (Colestipol Hcl [Colestid] 1 GM) PO SCH (21:00)
[2018-04-11] MEDS ORDERED: Insulin DETEMIR 100 UNIT/ML X5UNITS SQ SCH (21:00)
[2018-04-11] MEDS: 0.9 % Sodium Chloride 1,000 ML IVC SCH (22:01)
[2018-04-11] MEDS: Insulin LISPRO 300 UNITS/3 ML VIAL SQ SCH (22:02)
[2018-04-11] MEDS: Gabapentin 100 MG CAPSULE PO SCH (22:02)
[2018-04-11] MEDS: Cholecalciferol (D-3) 1,000 UNIT TABLET PO SCH (22:02)
[2018-04-11] MEDS: Gentamicin Oint 15 GM TUBE TP SCH (22:02)
[2018-04-11] MEDS: Sucralfate 1 GM TABLET PO SCH (22:02)
[2018-04-12 04:57] LABS: Basophils # 0.1 K/mcL (0.0-0.2); Basophils % 0.7 %; Eosinophils # 0.1 K/mcL (0.0-0.6); Eosinophils % 0.9 %; Hematocrit 29.1 % (35.3-44.9); Hemoglobin 8.7 g/dL (11.5-15.4); Immature Granulocytes % 0.7 % (0-4); Lymphocytes # 1.6 K/mcL (0.6-4.6); Lymphocytes % 15.7 %; Mean Corpuscular HGB Conc 29.9 g/dL (31.6-35.5); Mean Corpuscular Hemoglobin 26.3 pg (28.0-33.3); Mean Corpuscular Volume 87.9 fL (83.0-100.0); Mean Platelet Volume 11.2 fL (9.4-12.4); Monocytes # 0.7 K/mcL (0.0-1.3); Monocytes % 6.8 %; Neutrophils # 7.5 K/mcL (1.6-8.9); Platelet Count 176 K/mcL (140-400); Red Blood Count 3.31 M/mcL (3.82-4.97); Red Cell Distribution Width 17.4 % (11.5-14.5); Segmented Neutrophils % 75.2 %
[2018-04-12 05:08] LABS: BUN/Creatinine Ratio 9 (6-26); Blood Urea Nitrogen 22 mg/dL (8-23); Calcium 8.2 mg/dL (8.6-10.3); Carbon Dioxide 21 mEq/L (23-29); Chloride 99 mEq/L (98-107); Glucose 205 mg/dL (70-105); Osmolality,Calculated 281 (280-300); Potassium 4.5 mEq/L (3.5-5.1); Sodium 131 mEq/L (136-145); eGFR For African Americans 25 (> 60); eGFR For Non-African Americans 21 (> 60)
[2018-04-12 05:15] LABS: Troponin I < 0.03 ng/mL (< 0.04)
--- NOTE | 2018-04-12 06:30 | Electrocardiograph Report ---
Test Date: 2018-04-11 Pat Name: Lynnette Riley Department: 103 Room: 2A16 Gender: F Bell Tier: FAROOQ : 1955 Requested By: Frank Perdomo Order Number: [id number] Reading MD: Edmundo Cardenas Measurements Intervals [place] Rate: 99 P: DE: 0 QRS: 79 QRSD: 97 T: 59 QT: 378 QTc: 434 Interpretive Statements ATRIAL FLUTTER/TACHYCARDIA Electronically Signed On 04-12-2018 6:29:11 EDT by Edmundo Cardenas
[2018-04-12] MEDS ORDERED: *HR* Dextrose 50 % in Water (Syg) 50 ML SYRINGE IVP PRN (07:25)
[2018-04-12] MEDS ORDERED: D5% in Water 1,000 ML IVC PRN (07:25)
[2018-04-12] MEDS ORDERED: Dextrose Gel 15 GM/37.5 ML TUBE PO PRN ×2 (07:25)
[2018-04-12] MEDS: *HR* OxyCODONE/APAP 10/325 TABLET PO PRN (08:04)
[2018-04-12] MEDS: Calcium Acetate 667 MG CAPSULE PO SCH ×3 (08:04→16:48)
[2018-04-12] MEDS: Sucralfate 1 GM TABLET PO SCH ×4 (08:04→22:16)
[2018-04-12] MEDS: metOLazone 5 MG TABLET PO SCH (08:05)
[2018-04-12] MEDS: Cholecalciferol (D-3) 1,000 UNIT TABLET PO SCH (08:05)
[2018-04-12] MEDS: Aspirin Enteric Coated 81 MG Tablet PO SCH (08:05)
[2018-04-12] MEDS: Gabapentin 100 MG CAPSULE PO SCH ×3 (08:05→22:16)
[2018-04-12] MEDS: ARIPiprazole 10 MG TABLET PO SCH (08:05)
[2018-04-12] MEDS: amLODIPine 5 MG TABLET PO SCH (08:05)
[2018-04-12] MEDS: Renal Vitamin 1 MG CAPSULE PO SCH (08:05)
[2018-04-12] MEDS: Insulin LISPRO 300 UNITS/3 ML VIAL SQ SCH ×4 (08:06→21:52)
[2018-04-12] MEDS: Metoclopramide 10 MG/10 ML UD.LIQ PO SCH ×3 (08:06→16:49)
[2018-04-12] MEDS ORDERED: Ondansetron 8 MG in 0.9 % Sodium Chloride 50 ML IVPB ONE (08:38)
[2018-04-12] MEDS: 0.9 % Sodium Chloride 1,000 ML IVC SCH (10:07)
[2018-04-12] MEDS: Gentamicin Oint 15 GM TUBE TP SCH ×3 (10:20→16:50)
[2018-04-12] MEDS: Budesonide/Formoterol 160/4.5 MDI IH SCH ×2 (10:45→19:44)
[2018-04-12] MEDS ORDERED: Insulin DETEMIR 100 UNIT/ML X5UNITS SQ ONE (13:53)
[2018-04-12] MEDS ORDERED: Vancomycin 1 EACH in 0.9 % Sodium Chloride 250 ML IVPB PRN (14:00)
[2018-04-12 15:12] LABS: Bilirubin,Urine Small (Negative); Blood,Urine Large (Negative); Clarity,Urine Turbid (Clear); Color,Urine Yellow (Yellow); Glucose,Urine (UA) Normal (Normal); Ketones,Urine Trace mg/dL (Negative); Leukocyte Esterase,Urine Large (Negative); Nitrite,Urine Negative (Negative); Protein,Urine >=300 mg/dL (Neg-Trace); Specific Gravity,Urine 1.025 (1.010-1.025); Urobilinogen,Urine Normal (Normal)
[2018-04-12 15:14] LABS: Bacteria,Urine None Seen per hpf (None-Few); RBC,Urine 0-3 per hpf (0-3); Squamous Epithelial Cell,Urine Many per lpf (None-Few); WBC,Urine TNTC per hpf (0-3)
[2018-04-12] MEDS: Piperacillin/Tazobactam 3.375 GM in 0.9 % Sodium Chloride Mini Bag 100 ML IVPB SCH (16:49)
[2018-04-12] MEDS ORDERED: Ondansetron 4 MG/2 ML VIAL IVP PRN ×2 (17:19→17:39)
--- NOTE | 2018-04-12 17:56 | Internal Med Progress Note ---
Date of Encounter: 04/12/18 Time of Encounter: 12:00 - Assessment and plan (1) Fracture of superior ramus of pubis Current Visit: Yes Status: Acute Assessment and plan: Fracture 2/2 fall one month ago Pain control CT abdomen with small hiatal hernia with moderate wall thickening of distal esophagus suggestive acute inflammation Would recommend EGD as outpatient for evaluate for esophagitis, however if pain persistent with vomiting, will need GI input and possible inpatient scope. Qualifiers: Qualified Code(s): S32.519A - Fracture of superior rim of unspecified pubis, initial encounter for closed fracture (2) Abdominal pain Current Visit: No Status: Resolved Assessment and plan: Persistent but improves with defecation Troponin negative x2 CT abdomen reviewed with hiatal hernia. Pain may be due to ramus fracture and esophagitis. Will consult GI tomorow if pain persistent with nausea. Qualifiers: Abdominal location: generalized Qualified Code(s): R10.84 - Generalized abdominal pain (3) End-stage renal disease on hemodialysis Current Visit: Yes Status: Acute Assessment and plan: ESRD on HD MWF Euvolemic, no evidence of significant volume overload Consult nephrology - Time Spent With Patient Total time spent is greater than 50% in coordination of care (as documented) at patient's floor/unit and/or counseling patient: - Subjective Interval history: Patient reports feeling slightly better but abdominal pain persisting with several episodes of nausea today. - Constitutional Vitals: Temp Pulse Resp BP Pulse Ox 98.3 F 87 18 103/68 99 04/12/18 16:15 04/12/18 16:15 04/12/18 16:15 04/12/18 16:15 04/12/18 16:15 Exam: General: Alert and oriented. Obese. Skin: Normal color, no rash, no lesions. HEENT: EOMI, pupils equal, round and reactive. Cardiovascular: Regular rate, regular rythm. No murmurs appreciated. Lungs:b/l ronchi. decrease breath sounds. Abdomen:Soft, mild tenderness diffusely, no rigidity. Extremities:No deformity, no edema or tenderness, no joint swelling or clubbing. Neurological:Normal cognition, no weakness, no numbness. Rest of the physical exam is non contributory Internal Medicine: Result - Labs CBC & Chem 7: 04/12/18 04:21 04/12/18 04:21 Labs: Short CBC 04/12/18 Range/Units 04:21 WBC 10.0 (4.3-11.1) K/mcL Hgb 8.7 L (11.5-15.4) g/dL Hct 29.1 L (35.3-44.9) % Plt Count 176 (140-400) K/mcL Neutrophils # 7.5 (1.6-8.9) K/mcL BMP 04/12/18 04:21 Sodium 131 L Potassium 4.5 Chloride 99 Carbon Dioxide 21 L BUN 22 Creatinine 2.38 H Glucose 205 H Calcium 8.2 L Cardiac Enzymes 04/11/18 04/12/18 04/12/18 Range/Units 22:27 04:21 11:01 Troponin I < 0.03 < 0.03 < 0.03 (< 0.04) ng/mL Urine 04/12/18 Range/Units 15:01 Urine Color Yellow (Yellow) Urine Clarity Turbid A (Clear) Urine pH 6.0 (5.0-8.0) pH Units Ur Specific [place] 1.025 (1.010-1.025) Urine Protein >=300 H (Neg-Trace) mg/dL Urine Glucose (UA) Normal (Normal) mg/dL Consult Discharge Plan - Plan Referrals: Tristen Quintana MD [Primary Care Provider] - (patient will follow up with f pcp)
[2018-04-12] MEDS: Insulin DETEMIR 100 UNIT/ML X5UNITS SQ SCH (22:16)
[2018-04-12] MEDS: Lactobacillus 1 EACH CAP.SPRINK PO SCH (22:16)
[2018-04-13] MEDS: Piperacillin/Tazobactam 3.375 GM in 0.9 % Sodium Chloride Mini Bag 100 ML IVPB SCH ×2 (05:59→17:46)
[2018-04-13] MEDS ORDERED: 0.9 % Sodium Chloride 250 ML IVC PRN (07:19)
[2018-04-13] MEDS ORDERED: 0.9 % Sodium Chloride 1,000 ML PRIME SCH (07:30)
[2018-04-13] MEDS ORDERED: 0.9 % Sodium Chloride 1,000 ML ONE (07:35)
[2018-04-13 07:40] LABS: Hematocrit 25.7 % (35.3-44.9); Hemoglobin 7.8 g/dL (11.5-15.4); Mean Corpuscular HGB Conc 30.4 g/dL (31.6-35.5); Mean Corpuscular Hemoglobin 27.1 pg (28.0-33.3); Mean Corpuscular Volume 89.2 fL (83.0-100.0); Mean Platelet Volume 10.9 fL (9.4-12.4); Platelet Count 155 K/mcL (140-400); Red Blood Count 2.88 M/mcL (3.82-4.97); Red Cell Distribution Width 17.3 % (11.5-14.5)
[2018-04-13 08:05] LABS: Calcium 8.4 mg/dL (8.6-10.3); Potassium 4.5 mEq/L (3.5-5.1)
[2018-04-13] MEDS: Gentamicin Oint 15 GM TUBE TP SCH ×5 (08:56→20:28)
[2018-04-13] MEDS: metOLazone 5 MG TABLET PO SCH (08:58)
[2018-04-13] MEDS: Sucralfate 1 GM TABLET PO SCH ×4 (08:58→21:08)
[2018-04-13] MEDS: Lactobacillus 1 EACH CAP.SPRINK PO SCH ×2 (08:58→21:08)
[2018-04-13] MEDS: Cholecalciferol (D-3) 1,000 UNIT TABLET PO SCH (08:58)
[2018-04-13] MEDS: Aspirin Enteric Coated 81 MG Tablet PO SCH (08:59)
[2018-04-13] MEDS: Renal Vitamin 1 MG CAPSULE PO SCH (08:59)
[2018-04-13] MEDS: Calcium Acetate 667 MG CAPSULE PO SCH ×3 (08:59→17:46)
[2018-04-13] MEDS: Metoclopramide 10 MG/10 ML UD.LIQ PO SCH ×3 (08:59→17:45)
[2018-04-13] MEDS: Gabapentin 100 MG CAPSULE PO SCH ×3 (08:59→21:09)
[2018-04-13] MEDS: ARIPiprazole 10 MG TABLET PO SCH (08:59)
[2018-04-13] MEDS: Insulin LISPRO 300 UNITS/3 ML VIAL SQ SCH ×4 (09:00→21:09)
[2018-04-13] MEDS: amLODIPine 5 MG TABLET PO SCH (09:01)
[2018-04-13] MEDS: Budesonide/Formoterol 160/4.5 MDI IH SCH ×2 (10:28→21:34)
--- NOTE | 2018-04-13 10:45 | Nephrology Consult Note ---
Date of Encounter: 04/13/18 Time of Encounter: 10:00 Assessment and Plan (1) AV graft malfunction Current Visit: Yes Status: Acute Unable to dialyze today due to access issue. unfortunately with todays being the 13 of april, IR not available Will consult IR for tomorrow for shuntogram Keep NPO after MN and check inr Dre hold amlodipine since hypotensive bouts might be responsible for AVG problems with likely thormbosis Qualifiers: Qualified Code(s): T82.590A - Other mechanical complication of surgically created arteriovenous fistula, initial encounter (2) Abdominal pain Current Visit: Yes Status: Acute per primary team Qualifiers: Abdominal location: generalized Qualified Code(s): R10.84 - Generalized abdominal pain (3) End-stage renal disease on hemodialysis Current Visit: Yes Status: Acute Not acute indication to secure temp. access and dialyze today. lytes WNL and no signs of overt volume overload Will plan to dialyze tomorrow instead after IR intervention (4) Anemia Current Visit: No Status: Acute Hgb noted at 7.8 and dropping. etiology unclear but continue aranesp Qualifiers: Anemia type: unspecified type Qualified Code(s): D64.9 - Anemia, unspecified History of Present Illness - Reason for Consult Consult date: 04/13/18 end stage renal disease Requesting physician: Corinna Joseph - History of Present Illness 63 y o female with PMH of ESRD on HD admitted after another recent discharge with abdominal pain of 3 days duration. Pt has a history of recurrent hospital stays and currently resides at [facility]. She reports having nausea and vomiting as well. She was apparently given anti-emetic and pain meds with no improvement and hence presenting to the hospital once more. Renal consulted to manage her dialysis. Pt seen and examined at HD unit but unable to start HD as her AVG had no thrill or bruit. She reports prior episodes of hypotension and has similar AV access issue just a couple months ago requiring intervention Past Med Surg Social Fam HX - Past Medical History Medical history: atrial fibrillation, CHF, COPD, diabetes, myocardial infarction , renal disease Additional medical history: no defecits from previous CVA Psychiatric history: anxiety, depression, schizophrenia, previous psychiatric hospitalization - Past Surgical History Surgical History: angioplasty/stent, appendectomy, cholecystectomy, coronary bypass (CABG), hysterectomy, knee replacement, other, IVC filter Additional surgical history: CABG 2003,BILAT KNEE REPLACEMENTS,TONSILLECTOMY,3- 4 CARDIAC STENTS, ORIF RT ARM - Social History Smoking Status: Current every day smoker Smokeless Tobacco Status: No Alcohol use: none Drug use: none - Family History Father Family Member Ethnicity: Non- Living Status: Hx Family Cardiac Disorders: Yes Hx Family Respiratory Disorders: Yes Hx Family Cancer: Yes (Polycythemia) Hx Family Endocrine Disorder: Yes (DM) Mother Family Member Ethnicity: Non- Living Status: Still Living Hx Family Cardiac Disorders: Yes Hx Family Respiratory Disorders: Yes (asthma, COPD) Brother Adopted: No Family Member Ethnicity: Non- Living Status: Still Living Hx Family Cardiac Disorders: No Hx Family Respiratory Disorders: No Hx Family Cancer: No Hx Family GI Disorders: No Hx Family Endocrine Disorder: No Hx Family Neuromuscular Disorders: No Hx Family Neurologic Disorders: No Hx Family HEENT Disorders: No Hx Family Autoimmune Disorders: No Sister Adopted: No Family Member Ethnicity: Non- Living Status: Still Living Hx Family Cardiac Disorders: Yes Hx Family Respiratory Disorders: No Hx Family Cancer: No Hx Family GI Disorders: No Hx Family Endocrine Disorder: Yes Hx Family Neuromuscular Disorders: No Hx Family Neurologic Disorders: No Hx Family HEENT Disorders: No Hx Family Autoimmune Disorders: No Medications and Allergies Colestipol HCl [Colestid] 1 gm PO BID 06/12/15 [History] Calcium Acetate [Phos-LO] 1,334 mg PO TIDWM 09/06/16 [History] Folic Acid/Vit Bcomp,C [Renal Vitamin Tablet] 0.8 mg PO DAILY 04/15/17 [History] ARIPiprazole [Abilify] 10 mg PO DAILY 09/13/17 [History] Aspirin Enteric Coated [Aspirin EC] 81 mg PO DAILY 09/13/17 [History] Budesonide/Formoterol 160/4.5 [Symbicort 160/4.5] 2 puff IH BIDR 09/13/17 [ History] Cholecalciferol (Vitamin D3) [Vitamin D3] 50,000 unit PO TH 09/13/17 [History] Sennosides [Senna] 8.6 mg PO BID PRN 09/13/17 [History] Sevelamer [Renvela] 800 mg PO TID 09/13/17 [History] Albuterol Neb [AccuNeb] 0.63 mg IH Q6H PRN 10/18/17 [History] Oxybutynin [Ditropan] 5 mg PO BID 11/11/17 [History] Insulin LISPRO [Humalog Kwikpen U-100] 0 unit SQ ACHS 11/25/17 [History] Acetaminophen [Tylenol] 650 mg PO Q6HR PRN tablet 12/14/17 [Rx] amLODIPine [Norvasc] 5 mg PO DAILY 12/30/17 [History] Clopidogrel [Plavix] 75 mg PO DAILY 02/03/18 [History] Saccharomyces Boulardii [Florastor] 250 mg PO BID #20 capsule 02/09/18 [Rx] Rosuvastatin Calcium [Crestor] 20 mg PO DAILY 02/27/18 [History] Amitriptyline [Elavil] 50 mg PO HS tablet 03/24/18 [Rx] Carvedilol [Coreg] 6.25 mg PO BIDWM tablet 03/30/18 [Rx] Darbepoetin [Aranesp] 60 mcg SQ QWEEK syringe 03/30/18 [Rx] Insulin DETEMIR [Levemir] 10 unit SQ HS 04/04/18 [History] metOLazone [Zaroxolyn] 5 mg PO DAILY 04/04/18 [History] Gabapentin [Neurontin] 100 mg PO TID 3 Days #9 capsule 04/08/18 [Rx] Gentamicin Oint [Garamycin] 1 appl TP QID 3 Days #1 tube 04/08/18 [Rx] Metoclopramide [Reglan] 5 mg PO TIDAC 3 Days #9 ud.liq 04/08/18 [Rx] Omeprazole [PriLOSEC] 40 mg PO DAILY 3 Days #3 capsule. 04/08/18 [Rx] OxyCODONE/APAP 10/325 [Percocet 10/325 MG] 1 tab PO Q6H PRN 3 Days #12 tablet [Rx] Piperacillin/Tazobactam [Zosyn] 3.375 gm IVPB Q12HR 7 Days #14 vial 04/08/18 [Rx ] Sodium Hypochlorite 0.25% [Dakin's (Half-Strength 0.25%)] 1 appl TP BID 3 Days # 1 bottle 04/08/18 [Rx] Sucralfate [Carafate] 1 gm PO QIDAC 3 Days #12 tablet 04/08/18 [Rx] Vancomycin [Vancocin] 500 each IV MOWEFR #3 vial 04/08/18 [Rx] 3 Allergy/AdvReac Type Severity Reaction Status Date / Time No Known Allergies Allergy Verified 04/11/18 18:27 Review of Systems All Systems: reviewed and no additional remarkable complaints except as stated ( 10 system reviewed and noted in HPI) Exam - Vital Signs Vital signs: Initial Vital Signs Temp Pulse Resp BP Pulse Ox 98.1 F 90 18 124/72 100 04/11/18 14:38 04/11/18 14:38 04/11/18 14:38 04/11/18 14:38 04/11/18 14:38 Vital Signs - Last 8 Hours Temp Pulse Resp BP Pulse Ox 04/13/18 06:56 103/52 04/13/18 06:45 98 F 76 18 136/87 96 04/13/18 04:38 98.2 F 98 18 103/52 99 Intake and Output 04/12/18 04/13/18 04/13/18 23:59 07:59 15:59 Intake Total 100 / 840 Output Total 200 / 200 Balance 100 / 840 -200 / -200 Intake: IV Fluids 100 / 100 Zosyn 3.375 GM In 0.9 % Sodium 100 / 100 Chloride (Mini-Bag +) 100 ML @ 25 mls/hr IVPB Q12HR [facility] Rx#: [id number] Output: Urine 200 / 200 Other: Weight 96.4 kg Blood Glucose* 133 181 Patient Weight 04/13/18 23:59 Weight 96.4 kg - General Appearance General appearance: chronically ill EENT: ATNC, mucous membranes moist Neck: no JVD, supple Respiratory: clear Cardiology: edema (LE bilat, less than previous), normal S1, normal S2 - Dialysis Access Dialysis Vascular Access: Arteriovenous Graft thrill: No bruit: No Gastrointestinal: no tenderness, no guarding, obese Integumentary: warm and dry, hyperpigmentation, chronic venous stasis Neurologic: no focal deficit Musculoskeletal: no deformities Psychiatric: mood/affect appropriate, cooperative Results - Lab Results 04/13/18 07:13 04/13/18 07:13 Most recent lab results Calcium 8.4 mg/dL (8.6-10.3) L 04/13/18 07:13 Consult Discharge Plan - Plan Referrals: Tristen Quintana MD [Primary Care Provider] - (patient will follow up with [facility] pcp)
[2018-04-13] MEDS: *HR* OxyCODONE/APAP 10/325 TABLET PO PRN (15:10)
--- NOTE | 2018-04-13 17:03 | Internal Med Progress Note ---
Date of Encounter: 04/13/18 Time of Encounter: 14:00 - Assessment and plan (1) Fracture of superior ramus of pubis Current Visit: Yes Status: Acute Assessment and plan: Fracture 2/2 fall one month ago Pain control CT abdomen with small hiatal hernia with moderate wall thickening of distal esophagus suggestive acute inflammation GI consult placed, pending evaluation. Initially planned for EGD as outpatient but patient still has significant pain. Qualifiers: Qualified Code(s): S32.519A - Fracture of superior rim of unspecified pubis, initial encounter for closed fracture (2) Abdominal pain Current Visit: No Status: Resolved Assessment and plan: Persistent but improves with defecation Troponin negative x2 CT abdomen reviewed with hiatal hernia. Pain may be due to ramus fracture and esophagitis. Consult GI as patient had persistent abdominal pain with vomiting. Qualifiers: Abdominal location: generalized Qualified Code(s): R10.84 - Generalized abdominal pain (3) End-stage renal disease on hemodialysis Current Visit: Yes Status: Acute Assessment and plan: ESRD on HD MWF Euvolemic, no evidence of significant volume overload Nephro on board. Dialyze as scheduled. - Time Spent With Patient Total time spent is greater than 50% in coordination of care (as documented) at patient's floor/unit and/or counseling patient: - Subjective Interval history: Patient reports feeling even better today but abdominal pain is still present. Had not vomitted since yesterday. - Constitutional Vitals: Temp Pulse Resp BP Pulse Ox 97.4 F L 86 18 118/49 100 04/13/18 15:30 04/13/18 15:30 04/13/18 15:30 04/13/18 15:30 04/13/18 15:30 Exam: General: Alert and oriented. morbidly obese. Skin: Normal color, no rash, no lesions. HEENT: EOMI, pupils equal, round and reactive. Cardiovascular: Regular rate, regular rythm. No murmurs appreciated. Lungs:b/l ronchi. decrease breath sounds. Abdomen:Soft, mild tenderness diffusely, no rigidity. Extremities:No deformity, no edema or tenderness, no joint swelling or clubbing. Neurological:Normal cognition, no weakness, no numbness. Internal Medicine: Result - Labs CBC & Chem 7: 04/13/18 07:13 04/13/18 07:13 Labs: Short CBC 04/13/18 Range/Units 07:13 WBC 8.9 (4.3-11.1) K/mcL Hgb 7.8 L (11.5-15.4) g/dL Hct 25.7 L (35.3-44.9) % Plt Count 155 (140-400) K/mcL BMP 04/13/18 07:13 Sodium 132 L Potassium 4.5 Chloride 98 Carbon Dioxide 28 BUN 32 H Creatinine 3.17 H Glucose 184 H Calcium 8.4 L Consult Discharge Plan - Plan Referrals: Tristen Quintana MD [Primary Care Provider] - (patient will follow up with [facility] p[facility])
[2018-04-13] MEDS: Insulin DETEMIR 100 UNIT/ML X5UNITS SQ SCH (21:09)
[2018-04-14] MEDS: Piperacillin/Tazobactam 3.375 GM in 0.9 % Sodium Chloride Mini Bag 100 ML IVPB SCH ×2 (05:37→17:31)
[2018-04-14 06:15] LABS: Basophils % 0.5 %; Eosinophils # 0.1 K/mcL (0.0-0.6); Hematocrit 23.8 % (35.3-44.9); Hemoglobin 7.2 g/dL (11.5-15.4); Immature Granulocytes % 0.5 % (0-4); Lymphocytes # 1.4 K/mcL (0.6-4.6); Lymphocytes % 21.6 %; Mean Corpuscular HGB Conc 30.3 g/dL (31.6-35.5); Mean Corpuscular Hemoglobin 26.4 pg (28.0-33.3); Mean Corpuscular Volume 87.2 fL (83.0-100.0); Mean Platelet Volume 11.1 fL (9.4-12.4); Monocytes # 0.5 K/mcL (0.0-1.3); Monocytes % 7.6 %; Neutrophils # 4.5 K/mcL (1.6-8.9); Platelet Count 150 K/mcL (140-400); Red Blood Count 2.73 M/mcL (3.82-4.97); Red Cell Distribution Width 17.2 % (11.5-14.5); Segmented Neutrophils % 67.8 %
[2018-04-14 06:22] LABS: INR 1.1; Prothrombin Time 12.1 Seconds (9.4-12.1)
[2018-04-14 06:25] LABS: Albumin 2.4 g/dL (3.5-5.7); Albumin/Globulin Ratio 0.9 (1.1-2.2); Bilirubin,Total 0.3 mg/dL (0.3-1.0); Calcium 8.3 mg/dL (8.6-10.3); Globulin 2.6 g/dL (2.4-3.5); Potassium 4.7 mEq/L (3.5-5.1)
[2018-04-14 06:27] LABS: % Iron Saturation 15 % (15-50); Iron 26 mcg/dL (50-170); Transferrin 127 mg/dL (203-362)
[2018-04-14 06:45] LABS: Ferritin 383 ng/mL (10-120)
[2018-04-14] MEDS: Budesonide/Formoterol 160/4.5 MDI IH SCH ×2 (07:26→19:59)
[2018-04-14] MEDS: Aspirin Enteric Coated 81 MG Tablet PO SCH (08:36)
[2018-04-14] MEDS: Cholecalciferol (D-3) 1,000 UNIT TABLET PO SCH (08:36)
[2018-04-14] MEDS: ARIPiprazole 10 MG TABLET PO SCH (08:36)
[2018-04-14] MEDS: Metoclopramide 10 MG/10 ML UD.LIQ PO SCH ×3 (08:37→16:25)
[2018-04-14] MEDS: Sucralfate 1 GM TABLET PO SCH ×4 (08:37→20:20)
[2018-04-14] MEDS: Gabapentin 100 MG CAPSULE PO SCH ×3 (08:37→20:20)
[2018-04-14] MEDS: Lactobacillus 1 EACH CAP.SPRINK PO SCH ×2 (08:37→20:20)
[2018-04-14] MEDS: Calcium Acetate 667 MG CAPSULE PO SCH ×3 (08:40→16:26)
[2018-04-14] MEDS: Renal Vitamin 1 MG CAPSULE PO SCH (08:43)
[2018-04-14] MEDS: Insulin LISPRO 300 UNITS/3 ML VIAL SQ SCH ×4 (08:44→20:15)
[2018-04-14] MEDS: Gentamicin Oint 15 GM TUBE TP SCH ×5 (09:23→20:32)
--- NOTE | 2018-04-14 09:36 | Internal Med Progress Note ---
Date of Encounter: 04/14/18 Time of Encounter: 09:30 - Assessment and plan (1) Abdominal pain Current Visit: Yes Status: Acute Assessment and plan: Persistent but improves with defecation Troponin negative x2 CT abdomen reviewed with hiatal hernia. Pain may be due to ramus fracture and esophagitis. Consult GI as patient had persistent abdominal pain with vomiting. Hemoglobin also trending down. Fecal occult blood ordered. Qualifiers: Qualified Code(s): R10.9 - Unspecified abdominal pain - Time Spent With Patient Total time spent is greater than 50% in coordination of care (as documented) at patient's floor/unit and/or counseling patient: - Subjective Interval history: Patient reports feeling even better today but abdominal pain is still present. Had not vomitted since yesterday. - Constitutional Vitals: Temp Pulse Resp BP Pulse Ox 98.7 F 92 18 133/51 98 04/14/18 06:30 04/14/18 06:30 04/14/18 07:26 04/14/18 06:30 04/14/18 07:26 Internal Medicine: Result - Labs CBC & Chem 7: 04/14/18 04:00 04/14/18 04:00 Labs: Short CBC 04/14/18 Range/Units 04:00 WBC 6.6 (4.3-11.1) K/mcL Hgb 7.2 L (11.5-15.4) g/dL Hct 23.8 L (35.3-44.9) % Plt Count 150 (140-400) K/mcL Neutrophils # 4.5 (1.6-8.9) K/mcL BMP 04/14/18 04:00 Sodium 131 L Potassium 4.7 Chloride 98 Carbon Dioxide 26 BUN 35 H Creatinine 3.27 H Glucose 184 H Calcium 8.3 L Liver Function 04/14/18 Range/Units 04:00 Total Bilirubin 0.3 (0.3-1.0) mg/dL AST 14 (13-39) Units/L ALT 11 (7-52) Units/L Alkaline Phosphatase 155 H (34-104) Units/L Albumin 2.4 L (3.5-5.7) g/dL - ABG Interpretation ABG results: PT/INR, D-dimer PT 12.1 Seconds (9.4-12.1) 04/14/18 04:00 Consult Discharge Plan - Plan Referrals: Tristen Quintana MD [Primary Care Provider] - (patient will follow up with [facility] p[facility])
--- NOTE | 2018-04-14 10:31 | Nephrology Progress Note ---
<HareTaeCammie A - Last Filed: 04/14/18 10:34> Date of Encounter: 04/14/18 Time of Encounter: 10:30 - Assessment and Plan (1) AV graft malfunction Current Visit: Yes Status: Acute Shuntagram today followed by HD INR 1.1 Qualifiers: Encounter type: initial encounter Qualified Code(s): T82.590A - Other mechanical complication of surgically created arteriovenous fistula, initial encounter (2) End-stage renal disease on hemodialysis Current Visit: Yes Status: Acute Plan for HD today after shuntagram Renal diet when diet advanced Avoid nephrotoxins if possible (3) Anemia Current Visit: No Status: Acute Hgb 7.2 Goal hgb 10-11 Continue Aranesp Transfuse per parameters Qualifiers: Anemia type: unspecified type Qualified Code(s): D64.9 - Anemia, unspecified (4) Abdominal pain Current Visit: Yes Status: Acute per primary team Qualifiers: Abdominal location: generalized Qualified Code(s): R10.84 - Generalized abdominal pain Subjective Principal diagnosis: abdominal pain, ESRD on dialysis Interval history: Patient seen and examined. Resting comfortably in bed. Has been NPO since midnight for shuntagram today followed by HD. Objective - Vital Signs Vital signs: Vital Signs Temp Pulse Resp BP Pulse Ox 04/14/18 07:26 18 98 04/14/18 06:30 98.7 F 92 20 133/51 97 04/14/18 04:54 98.1 F 89 17 116/56 97 04/13/18 23:52 98.0 F 78 18 99/53 98 04/13/18 21:40 98 04/13/18 21:35 18 98 04/13/18 19:41 98.3 F 87 17 112/56 98 04/13/18 15:30 97.4 F L 86 18 118/49 100 04/13/18 11:11 98.9 F 94 18 104/43 95 Intake and Output 04/13/18 04/14/18 04/14/18 23:59 07:59 15:59 Intake Total 700 / 700 Output Total 200 / 200 Balance 500 / 500 Intake: IV Fluids 100 / 100 Zosyn 3.375 GM In 0.9 % Sodium 100 / 100 Chloride (Mini-Bag +) 100 ML @ 25 mls/hr IVPB Q12HR [facility] Rx#: [id number] Oral 600 / 600 Output: Urine 200 / 200 Other: Meal Dinner Percent of Meal Consumed 85% Weight 96 kg Blood Glucose* 322 194 - General Appearance General appearance: Present: obese, chronically ill, frail EENT: Present: ATNC, hearing intact, vision intact Neck: Present: supple Respiratory: Present: clear Cardiology: Present: edema, normal S1, normal S2 Dialysis Vascular Access: Arteriovenous Graft Gastrointestinal: Present: tenderness, no guarding, obese Integumentary: Present: warm and dry Neurologic: Present: alert and oriented x3 Psychiatric: Present: mood/affect appropriate, cooperative - Lab 04/14/18 04:00 04/14/18 04:00 Most recent lab results Calcium 8.3 mg/dL (8.6-10.3) L 04/14/18 04:00 Consult Discharge Plan - Plan Referrals: Tristen Quintana MD [Primary Care Provider] - (patient will follow up with [facility] pcp) <Luma Mendez - Last Filed: 04/14/18 15:28> Date of Encounter: 04/14/18 - Assessment and Plan (1) AV graft malfunction Current Visit: Yes Status: Acute Qualifiers: Encounter type: initial encounter Qualified Code(s): T82.590A - Other mechanical complication of surgically created arteriovenous fistula, initial encounter (2) Abdominal pain Current Visit: Yes Status: Acute Qualifiers: Abdominal location: generalized Qualified Code(s): R10.84 - Generalized abdominal pain (3) End-stage renal disease on hemodialysis Current Visit: Yes Status: Acute (4) Anemia Current Visit: No Status: Acute Qualifiers: Anemia type: unspecified type Qualified Code(s): D64.9 - Anemia, unspecified Objective - Vital Signs Vital signs: Vital Signs Temp Pulse Resp BP Pulse Ox 04/14/18 12:23 97.9 F 83 18 109/69 98 04/14/18 07:26 18 98 04/14/18 06:30 98.7 F 92 20 133/51 97 04/14/18 04:54 98.1 F 89 17 116/56 97 04/13/18 23:52 98.0 F 78 18 99/53 98 04/13/18 21:40 98 04/13/18 21:35 18 98 04/13/18 19:41 98.3 F 87 17 112/56 98 04/13/18 15:30 97.4 F L 86 18 118/49 100 Intake and Output 04/13/18 04/14/18 04/14/18 23:59 07:59 15:59 Intake Total 700 / 700 Output Total 200 / 200 300 / 300 Balance 500 / 500 -300 / -300 Intake: IV Fluids 100 / 100 Zosyn 3.375 GM In 0.9 % Sodium 100 / 100 Chloride (Mini-Bag +) 100 ML @ 25 mls/hr IVPB Q12HR [facility] Rx#: [id number] Oral 600 / 600 Output: Urine 200 / 200 300 / 300 Other: Meal Dinner Percent of Meal Consumed 85% Stool Size Moderate Stool Consistency soft formed Stool Color Brown # Voids 1 # Bowel Movements 1 Weight 96 kg Blood Glucose* 322 194 225 - Lab 04/14/18 04:00 04/14/18 04:00 Most recent lab results Calcium 8.3 mg/dL (8.6-10.3) L 04/14/18 04:00 - Attending Attestation I examined this patient and my medical decision-making was reviewed with the Resident Physician/SVP. I agree with the documented findings, disposition and treatment plan as described except to the extent set forth below. Pt seen and examined while waiting for IR intervention. Spoke with IR, Dr Robles who recommended no shuntogram at this time since this would make the third time within the past 2 months of interventions and plans to place temp HD line due to plavix on board (held yesterday). Spoke with pt's outside vascular surgeon who wants to intervene on her access on wednesday. Will plan at this point the just dialyze tomorrow. Lytes stable. No signs of volume overload. Pt still complaining of abd. pain. Exam unchanged from yesterday. Hopefully she will be discharged in time for followup on wednesday with her vascular surgeon in [place], [place].
--- NOTE | 2018-04-14 11:14 | Gastroenterology Consult Note ---
Date of Encounter: 04/14/18 Time of Encounter: 10:45 - Assessment and plan (1) Anemia Current Visit: No Status: Suspected Assessment and plan: Hgb on admission 9.8 and today Hgb 7.2. Continue to monitor CBC and transfuse PRBC as needed. Plan for EGD today to r/o esophagitis, gastritis, duodenitis, PUD, MW tear, or AVM. Keep patient NPO. Qualifiers: Anemia type: due to chronic kidney disease Chronic kidney disease stage: on chronic dialysis Qualified Code(s): N18.6 - End stage renal disease; D63.1 - Anemia in chronic kidney disease; D63.1 - Anemia in chronic kidney disease; Z99.2 - Dependence on renal dialysis; Z99.2 - Dependence on renal dialysis; Z99.2 - Dependence on renal dialysis; Z99.2 - Dependence on renal dialysis (2) Coffee ground emesis Current Visit: Yes Status: Acute Assessment and plan: Continue PPI and Carafate. Continue to monitor CBC. Plan for EGD today to r/o esophagitis, gastritis, duodenitis, PUD, MW tear, or AVM. Keep patient NPO. (3) Sepsis Current Visit: No Status: Resolved Assessment and plan: Management per primary team. Qualifiers: Sepsis type: sepsis due to unspecified organism Qualified Code(s): A41.9 - Sepsis, unspecified organism (4) Esophageal ulcer Current Visit: Yes Status: Acute Assessment and plan: Ulcers noted on EGD 04/04/2018 running the entire length of the esophagus. Plan for EGD today to assess ulcers. Qualifiers: Esophageal ulcer bleeding: without bleeding Qualified Code(s): K22.10 - Ulcer of esophagus without bleeding (5) ESRD on hemodialysis Current Visit: No Status: Chronic (6) Morbid (severe) obesity due to excess calories Current Visit: No Status: Chronic - Time Spent With Patient Total time spent is greater than 50% in coordination of care (as documented) at patient's floor/unit and/or counseling patient: GI History of Present Illness - Data of Consult Patient: known to practice within the last 3 years Consult date: 04/14/18 Requesting Physician: Corinna Joseph MD - Consult Narrative Reason for consult: anemia History of present illness: Ms. Riley is a 63 year old female with PMHx of Afib on Plavix, CHF, COPD, DM, LA, CKD on hemodialysis MWF, CVA who was brought to the ED with complaints of abdominal pain, nausea, vomiting that started during dialysis. CT A/P revealed concern for possible bilateral pneumonia, acute inflammation of the lower esophagus, possible pneumonia, right hydronephrosis, wall thickening of the urinary bladder, and pubic ramus acute/subacute fracture. Pt reports a fall last month. We were consulted to evaluate her abdominal pain. She reports coffee -ground emesis 2 days ago. She denies hematochezia. Hgb on admission 9.8 and today Hgb 7.2. Procedures: EGD 04/04/2018 Dr. Darden: Esophageal ulcers running the entire length of esophagus, gastroparesis. Colonoscopy 11/16/2014 Dr. Altamirano: 6mm sessile serrated adenoma, bleeding in proximal ascending colon from previous polypectomy-clip placed. Repeat in 2 years. Colonoscopy 11/01/2014 Dr. Altamirano: 15 mm hyperplastic polyp, diverticulosis. EGD 11/01/2014 Dr. Altamirano: Gastritis NSAIDs: ASA Anticoagulation: Plavix Past Med Surg Social Fam HX - Past Medical History Medical history: atrial fibrillation, CHF, COPD, diabetes, myocardial infarction , renal disease Additional medical history: no defecits from previous CVA Psychiatric history: anxiety, depression, schizophrenia, previous psychiatric hospitalization - Past Surgical History Surgical History: angioplasty/stent, appendectomy, cholecystectomy, coronary bypass (CABG), hysterectomy, knee replacement, other, IVC filter Additional surgical history: CABG 2002,BILAT KNEE REPLACEMENTS,TONSILLECTOMY,3- 4 CARDIAC STENTS, ORIF RT ARM - Social History Smoking Status: Current every day smoker Smokeless Tobacco Status: No Alcohol use: none Drug use: none - Family History Father Family Member Ethnicity: Non- Living Status: Hx Family Cardiac Disorders: Yes Hx Family Respiratory Disorders: Yes Hx Family Cancer: Yes (Polycythemia) Hx Family Endocrine Disorder: Yes (DM) Mother Family Member Ethnicity: Non- Living Status: Still Living Hx Family Cardiac Disorders: Yes Hx Family Respiratory Disorders: Yes (asthma, COPD) Brother Adopted: No Family Member Ethnicity: Non- Living Status: Still Living Hx Family Cardiac Disorders: No Hx Family Respiratory Disorders: No Hx Family Cancer: No Hx Family GI Disorders: No Hx Family Endocrine Disorder: No Hx Family Neuromuscular Disorders: No Hx Family Neurologic Disorders: No Hx Family HEENT Disorders: No Hx Family Autoimmune Disorders: No Sister Adopted: No Family Member Ethnicity: Non- Living Status: Still Living Hx Family Cardiac Disorders: Yes Hx Family Respiratory Disorders: No Hx Family Cancer: No Hx Family GI Disorders: No Hx Family Endocrine Disorder: Yes Hx Family Neuromuscular Disorders: No Hx Family Neurologic Disorders: No Hx Family HEENT Disorders: No Hx Family Autoimmune Disorders: No - Gastrointestinal Gastrointestinal: Present: as per HPI - Constitutional Constitutional: as per HPI - EENT Eyes: as per HPI Ears: Present: as per HPI Nose, mouth and throat: Present: as per HPI - Cardiovascular Cardiovascular ROS: Present: as per HPI - Respiratory Respiratory IM: Present: as per HPI - Genitourinary Genitourinary: Absent: change in color, Urinary frequency - Neurological ROS Neurological GI: Present: as per HPI - Hematologic/Lymphatic Hematologic/Lymphatic pediatric: Present: as per HPI - Musculoskeletal Musculoskeletal ROS GI: Present: as per HPI - Integumentary Integumentary GI: Present: as per HPI - Psychiatric ROS Psychiatric GI: Present: as per HPI - Endocrine Endocrine IM: Present: as per HPI - Constitutional Vitals: Temp Pulse Resp BP Pulse Ox 98.7 F 92 18 133/51 98 04/14/18 06:30 04/14/18 06:30 04/14/18 07:26 04/14/18 06:30 04/14/18 07:26 General appearance: Present: cooperative, A&O X 3, no acute distress, answers questions appropriately - Head Head exam: Present: atraumatic, normocephalic - Eye Eye exam: Present: normal appearance, sclera anicteric - ENT ENT exam: Present: mucous membranes dry - Neck Neck exam general surgery: Present: normal inspection, trachea midline - Respiratory Respiratory exam: Present: decreased breath sounds, rhonchi - Cardiovascular Cardiovascular exam: Present: RRR, +S1, +S2 - GI/Abdominal GI/Abdominal exam: Present: soft, tenderness (epigastric), no peritoneal signs. Absent: distended, firm, guarding Additional comments: lower abdomen ecchymosis, obese - Rectal Rectal exam: Present: deferred - Extremities Exam Extremities exam: Present: warm - Neurological Exam Neurological exam: Present: no focal deficits - Psychiatric Psychiatric exam: Present: normal affect, normal mood - Skin Skin exam: Present: dry, intact, normal color, warm Results - Labs CBC & Chem 7: 04/14/18 04:00 04/14/18 04:00 Labs: Last Result Calcium 8.3 mg/dL (8.6-10.3) L 04/14/18 04:00 Iron 26 mcg/dL (50-170) L 04/14/18 04:00 % Saturation 15 % (15-50) 04/14/18 04:00 Transferrin 127 mg/dL (203-362) L 04/14/18 04:00 Ferritin 383 ng/mL (10-120) H 04/14/18 04:00 Troponin I < 0.03 ng/mL (< 0.04) 04/12/18 11:01 Entire Visit Hgb 7.2 g/dL (11.5-15.4) L 04/14/18 04:00 Hct 23.8 % (35.3-44.9) L 04/14/18 04:00 PT 12.1 Seconds (9.4-12.1) 04/14/18 04:00 Ferritin 383 ng/mL (10-120) H 04/14/18 04:00 Total Bilirubin 0.3 mg/dL (0.3-1.0) 04/14/18 04:00 AST 14 Units/L (13-39) 04/14/18 04:00 ALT 11 Units/L (7-52) 04/14/18 04:00 Lipase 12 Units/L (11-82) 04/11/18 15:47 - ABG ABG results: PT/INR, D-dimer PT 12.1 Seconds (9.4-12.1) 04/14/18 04:00 Consult Discharge Plan - Plan Referrals: Tristen Quintana MD [Primary Care Provider] - (patient will follow up with f pcp)
[2018-04-14] MEDS ORDERED: Lidocaine -MPF 2% 2 ML VIAL ONE (11:37)
[2018-04-14] MEDS ORDERED: Propofol 500 MG/50 ML INFUS..BTL ONE (11:38)
[2018-04-14] MEDS ORDERED: *HR* Heparin 5,000 UNIT/ML VIAL ONE (15:02)
--- NOTE | 2018-04-14 15:19 | IR Procedure Note ---
Date of procedure: 04/14/18 Consent Obtained: Written consent Timeout: Correct patient and procedure verified, Correct site verified, Time out performed, Skin prep completed Local anesthetic: Lidocaine 1% Indications: renal failure Procedure Performed: temp HDC Was there an public relations assistant present: No Site/Technique: rt IJ to RA Results/Findings: adequate placement Estimated blood loss (cc): 2 Complications: None; Tolerated procedure well Post Procedure Treatment Plan: OK to use for dialysis Specimen: none
--- NOTE | 2018-04-14 16:33 | Internal Med Progress Note ---
Date of Encounter: 04/14/18 Time of Encounter: 09:00 - Assessment and plan (1) Abdominal pain Current Visit: Yes Status: Acute Assessment and plan: Persistent but improves with defecation Troponin negative x2 CT abdomen reviewed with hiatal hernia. Pain may be due to ramus fracture and esophagitis. Fecal occult blood ordered. Hemoglobin dropping. GI Consulted. Planned for EGD. Qualifiers: Qualified Code(s): R10.9 - Unspecified abdominal pain (2) Fracture of superior ramus of pubis Current Visit: Yes Status: Acute Assessment and plan: Fracture 2/2 fall one month ago Pain control Qualifiers: Qualified Code(s): S32.519A - Fracture of superior rim of unspecified pubis, initial encounter for closed fracture (3) End-stage renal disease (ESRD) Current Visit: No Status: Acute Assessment and plan: ESRD on HD MWF Euvolemic, nephrology following. Missed last HD due to unable to access site for HD. Nephro had discussed with IR and vasc surg. Plan for line placement today for HD tomorrow. - Time Spent With Patient Total time spent is greater than 50% in coordination of care (as documented) at patient's floor/unit and/or counseling patient: - Subjective Interval history: Patient reports feeling fine but abdominal pain is unchanged. - Constitutional Vitals: Temp Pulse Resp BP Pulse Ox 97.7 F 88 17 114/47 96 04/14/18 16:21 04/14/18 16:21 04/14/18 16:21 04/14/18 16:21 04/14/18 16:21 Exam: General: Alert and oriented. morbidly obese. Skin: Normal color, no rash, no lesions. HEENT: EOMI, pupils equal, round and reactive. Cardiovascular: Regular rate, regular rythm. No murmurs appreciated. Lungs:b/l ronchi. decrease breath sounds. Abdomen:Soft, tenderness diffusely, no rigidity. Extremities:No deformity, no edema or tenderness, no joint swelling or clubbing. Neurological:Normal cognition, no weakness, no numbness. Internal Medicine: Result - Labs CBC & Chem 7: 04/14/18 04:00 04/14/18 04:00 Labs: Short CBC 04/14/18 Range/Units 04:00 WBC 6.6 (4.3-11.1) K/mcL Hgb 7.2 L (11.5-15.4) g/dL Hct 23.8 L (35.3-44.9) % Plt Count 150 (140-400) K/mcL Neutrophils # 4.5 (1.6-8.9) K/mcL BMP 04/14/18 04:00 Sodium 131 L Potassium 4.7 Chloride 98 Carbon Dioxide 26 BUN 35 H Creatinine 3.27 H Glucose 184 H Calcium 8.3 L Liver Function 04/14/18 Range/Units 04:00 Total Bilirubin 0.3 (0.3-1.0) mg/dL AST 14 (13-39) Units/L ALT 11 (7-52) Units/L Alkaline Phosphatase 155 H (34-104) Units/L Albumin 2.4 L (3.5-5.7) g/dL - ABG Interpretation ABG results: PT/INR, D-dimer PT 12.1 Seconds (9.4-12.1) 04/14/18 04:00 - Impressions Impressions Guidance Needle Placement Ultrasound 04/14/18 00:00 IMPRESSION: Successful ultrasound and fluoroscopy guided non-tunneled hemodialysis catheter placement. Superior vena cavogram demonstrated patent SVC. D/ / 04/14/2018 15:37:10 Shahla Robles MD / daniel Interpreting Provider: Shahla Robles MD Insertion Non-Tunneled Catheter 04/14/18 00:00 IMPRESSION: Successful ultrasound and fluoroscopy guided non-tunneled hemodialysis catheter placement. Superior vena cavogram demonstrated patent SVC. D/ / 04/14/2018 15:37:10 Shahla Robles MD / daniel Interpreting Provider: Shahla Robles MD Vena Cavagram, Superior 04/14/18 00:00 IMPRESSION: Successful ultrasound and fluoroscopy guided non-tunneled hemodialysis catheter placement. Superior vena cavogram demonstrated patent SVC. D/ / 04/14/2018 15:37:10 Shahla Robles MD / daniel Interpreting Provider: Shahla Robles MD Consult Discharge Plan - Plan Referrals: Tristen Quintana MD [Primary Care Provider] - (patient will follow up with [facility] pcp)
[2018-04-14] MEDS ORDERED: Aminoglycoside Consult 1 EACH MC ONE (18:14)
[2018-04-14] MEDS: *HR* OxyCODONE/APAP 10/325 TABLET PO PRN (20:21)
[2018-04-14] MEDS: Insulin DETEMIR 100 UNIT/ML X5UNITS SQ SCH (20:27)
[2018-04-15] MEDS: Piperacillin/Tazobactam 3.375 GM in 0.9 % Sodium Chloride Mini Bag 100 ML IVPB SCH ×2 (04:13→17:20)
[2018-04-15 04:23] LABS: Basophils % 0.4 %; Eosinophils # 0.1 K/mcL (0.0-0.6); Eosinophils % 1.7 %; Hemoglobin 7.5 g/dL (11.5-15.4); Immature Granulocytes % 0.5 % (0-4); Lymphocytes # 1.5 K/mcL (0.6-4.6); Lymphocytes % 17.5 %; Mean Corpuscular HGB Conc 31.3 g/dL (31.6-35.5); Mean Corpuscular Hemoglobin 27.6 pg (28.0-33.3); Mean Corpuscular Volume 88.2 fL (83.0-100.0); Monocytes # 0.5 K/mcL (0.0-1.3); Monocytes % 5.9 %; Neutrophils # 6.2 K/mcL (1.6-8.9); Platelet Count 157 K/mcL (140-400); Red Blood Count 2.72 M/mcL (3.82-4.97); Red Cell Distribution Width 17.2 % (11.5-14.5)
[2018-04-15 04:43] LABS: Albumin 2.3 g/dL (3.5-5.7); Albumin/Globulin Ratio 0.9 (1.1-2.2); Bilirubin,Total 0.3 mg/dL (0.3-1.0); Calcium 8.1 mg/dL (8.6-10.3); Globulin 2.6 g/dL (2.4-3.5); Potassium 4.8 mEq/L (3.5-5.1); Total Protein 4.9 g/dL (6.4-8.9)
[2018-04-15] MEDS: Gentamicin Oint 15 GM TUBE TP SCH ×3 (07:45→20:58)
[2018-04-15] MEDS: Budesonide/Formoterol 160/4.5 MDI IH SCH ×2 (08:07→21:42)
--- NOTE | 2018-04-15 08:27 | Anesthesia Evaluation PreOp ---
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: CVA (no residual deficit) Other Medical History: Renal (ESRD on dialysis MWF), Diabetes Type II, GERD, Other (schizophrenia, anxiety) Anesthesia History: No Prior Anesthetic Complications, Past Anesthesia Alcohol Use: none Drug use: none Medications and Allergies Colestipol HCl [Colestid] 1 gm PO BID 06/12/15 [History] Calcium Acetate [Phos-LO] 1,334 mg PO TIDWM 09/06/16 [History] Folic Acid/Vit Bcomp,C [Renal Vitamin Tablet] 0.8 mg PO DAILY 04/15/17 [History] ARIPiprazole [Abilify] 10 mg PO DAILY 09/13/17 [History] Aspirin Enteric Coated [Aspirin EC] 81 mg PO DAILY 09/13/17 [History] Budesonide/Formoterol 160/4.5 [Symbicort 160/4.5] 2 puff IH BIDR 09/13/17 [ History] Cholecalciferol (Vitamin D3) [Vitamin D3] 50,000 unit PO TH 09/13/17 [History] Sennosides [Senna] 8.6 mg PO BID PRN 09/13/17 [History] Sevelamer [Renvela] 800 mg PO TID 09/13/17 [History] Albuterol Neb [AccuNeb] 0.63 mg IH Q6H PRN 10/18/17 [History] Oxybutynin [Ditropan] 5 mg PO BID 11/11/17 [History] Insulin LISPRO [Humalog Kwikpen U-100] 0 unit SQ ACHS 11/25/17 [History] Acetaminophen [Tylenol] 650 mg PO Q6HR PRN tablet 12/14/17 [Rx] amLODIPine [Norvasc] 5 mg PO DAILY 12/30/17 [History] Clopidogrel [Plavix] 75 mg PO DAILY 02/03/18 [History] Saccharomyces Boulardii [Florastor] 250 mg PO BID #20 capsule 02/09/18 [Rx] Rosuvastatin Calcium [Crestor] 20 mg PO DAILY 02/27/18 [History] Amitriptyline [Elavil] 50 mg PO HS tablet 03/24/18 [Rx] Carvedilol [Coreg] 6.25 mg PO BIDWM tablet 03/30/18 [Rx] Darbepoetin [Aranesp] 60 mcg SQ QWEEK syringe 03/30/18 [Rx] Insulin DETEMIR [Levemir] 10 unit SQ HS 04/04/18 [History] metOLazone [Zaroxolyn] 5 mg PO DAILY 04/04/18 [History] Gabapentin [Neurontin] 100 mg PO TID 3 Days #9 capsule 04/08/18 [Rx] Gentamicin Oint [Garamycin] 1 appl TP QID 3 Days #1 tube 04/08/18 [Rx] Metoclopramide [Reglan] 5 mg PO TIDAC 3 Days #9 ud.liq 04/08/18 [Rx] Omeprazole [PriLOSEC] 40 mg PO DAILY 3 Days #3 capsule.dr 04/08/18 [Rx] OxyCODONE/APAP 10/325 [Percocet 10/325 MG] 1 tab PO Q6H PRN 3 Days #12 tablet [Rx] Piperacillin/Tazobactam [Zosyn] 3.375 gm IVPB Q12HR 7 Days #14 vial 04/08/18 [Rx ] Sodium Hypochlorite 0.25% [Dakin's (Half-Strength 0.25%)] 1 appl TP BID 3 Days # 1 bottle 04/08/18 [Rx] Sucralfate [Carafate] 1 gm PO QIDAC 3 Days #12 tablet 04/08/18 [Rx] Vancomycin [Vancocin] 500 each IV MOWEFR #3 vial 04/08/18 [Rx] 3 Allergy/AdvReac Type Severity Reaction Status Date / Time No Known Allergies Allergy Verified 04/11/18 18:27 - Meds/Allergy Pre-op Review Medications Reviewed: Yes Allergies Reviewed: Yes Beta Blockers on Current Med List: Yes If Beta Blockers taken, Date/Time (Last Dose taken): 04/14/2018 at 1628 Anesthesia Results - Labs 04/15/18 04:10 04/15/18 04:10 - Imaging EKG: report reviewed (04/11/2018 ATRIAL FLUTTER/TACHYCARDIA) Additional studies: 03/17/2018 Limited Echo Impressions: LVEF 60%. Normal LV chamber size, wall thickness and overall function. Atypical septal motion consistent with post-operative status. Mild segmental left ventricular systolic dysfunction. 12/13/2017 LEFT HEART CATH W/ GRAFTS Indications: Abnormal Test - Stress Impressions: SVG to RPDA mid 40% lesion Proximal LAD 60% lesion Distal CIRC ISR 40% Occluded RCA Recommendations: Continue medical management 12/11/2017 Stress Impression: Pharmacologic stress ECG is non-diagnostic for ischemia due to submaximal HR. Gated EF > 70%. Medium sized, moderate intensity, fixed inferior perfusion defect suggestive of a prior infarction. Small sized, moderate intensity, reversible inferolateral defect c/w ischemia. Ordering physician notified via [facility]. 11/12/2017 Echo Impressions: LVEF 60%. Mild left ventricular diastolic dysfunction. Normal right ventricular structure and function. Mild aortic regurgitation. Mild mitral regurgitation. Mild tricuspid regurgitation. Mild pulmonary hypertension. 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
[2018-04-15] MEDS ORDERED: *HR* Propofol 200 MG/20 ML VIAL IVP ONE (08:30)
[2018-04-15] MEDS ORDERED: *HR* Heparin 10,000 UNIT/10 ML VIAL IV PRN (08:59)
[2018-04-15] MEDS ORDERED: 0.9 % Sodium Chloride 250 ML IVC PRN (08:59)
[2018-04-15] MEDS ORDERED: 0.9 % Sodium Chloride 1,000 ML PRIME SCH (09:00)
[2018-04-15] MEDS ORDERED: 0.9 % Sodium Chloride 2,000 ML ONE (09:06)
[2018-04-15] MEDS ORDERED: Tetracaine/Benzocaine/Butamben 200MG/SPRAY (100SPY/BOT) MM ONE (09:48)
[2018-04-15] MEDS ORDERED: Simethicone 40 MG/0.6 ML MLS IR ONE (09:48)
[2018-04-15] MEDS: Insulin LISPRO 300 UNITS/3 ML VIAL SQ SCH ×4 (10:09→20:54)
[2018-04-15] MEDS: Calcium Acetate 667 MG CAPSULE PO SCH ×3 (10:10→16:46)
[2018-04-15] MEDS: Renal Vitamin 1 MG CAPSULE PO SCH (11:26)
[2018-04-15] MEDS: Cholecalciferol (D-3) 1,000 UNIT TABLET PO SCH (11:26)
[2018-04-15] MEDS: Aspirin Enteric Coated 81 MG Tablet PO SCH (11:26)
[2018-04-15] MEDS: ARIPiprazole 10 MG TABLET PO SCH (11:26)
[2018-04-15] MEDS: Gabapentin 100 MG CAPSULE PO SCH ×3 (11:26→21:02)
[2018-04-15] MEDS: Lactobacillus 1 EACH CAP.SPRINK PO SCH ×2 (11:27→21:02)
[2018-04-15] MEDS: Sucralfate 1 GM TABLET PO SCH ×4 (11:32→21:02)
[2018-04-15] MEDS: Metoclopramide 10 MG/10 ML UD.LIQ PO SCH ×3 (11:33→16:47)
--- NOTE | 2018-04-15 18:29 | Internal Med Progress Note ---
Date of Encounter: 04/15/18 Time of Encounter: 10:00 - Assessment and plan (1) Abdominal pain Current Visit: Yes Status: Acute Assessment and plan: Persistent but improves with defecation Troponin negative x2 CT abdomen reviewed with hiatal hernia. Pain may be due to ramus fracture and esophagitis. Fecal occult blood ordered. Hemoglobin dropping but stabelized out around 7.5. GI following. Went for EGD today. Gastritis with esophageal ulcers. Evidence of gastroparesis. Qualifiers: Qualified Code(s): R10.9 - Unspecified abdominal pain (2) Fracture of superior ramus of pubis Current Visit: Yes Status: Acute Assessment and plan: Fracture 2/2 fall one month ago Pain control Qualifiers: Qualified Code(s): S32.519A - Fracture of superior rim of unspecified pubis, initial encounter for closed fracture (3) End-stage renal disease (ESRD) Current Visit: No Status: Acute Assessment and plan: ESRD on HD MWF Euvolemic, nephrology following. Went for HD today. - Time Spent With Patient Total time spent is greater than 50% in coordination of care (as documented) at patient's floor/unit and/or counseling patient: - Subjective Interval history: Reported feeling fine. Still with abdominal pain but overall better. - Constitutional Vitals: Temp Pulse Resp BP Pulse Ox 97.5 F L 105 16 122/72 98 04/15/18 15:33 04/15/18 15:33 04/15/18 15:33 04/15/18 15:33 04/15/18 15:33 Exam: General: Alert and oriented. morbidly obese. Skin: Normal color, no rash, no lesions. HEENT: EOMI, pupils equal, round and reactive. Cardiovascular: Regular rate, regular rhythm. No murmurs appreciated. Lungs:b/l ronchi. decrease breath sounds. Abdomen:Soft, mild tenderness diffusely, no rigidity. Extremities:No deformity, no edema or tenderness, no joint swelling or clubbing. Neurological:Normal cognition, no weakness, no numbness. Internal Medicine: Result - Labs CBC & Chem 7: 04/15/18 04:10 04/15/18 04:10 Labs: Short CBC 04/15/18 Range/Units 04:10 WBC 8.3 (4.3-11.1) K/mcL Hgb 7.5 L (11.5-15.4) g/dL Hct 24.0 L (35.3-44.9) % Plt Count 157 (140-400) K/mcL Neutrophils # 6.2 (1.6-8.9) K/mcL BMP 04/15/18 04:10 Sodium 130 L Potassium 4.8 Chloride 99 Carbon Dioxide 25 BUN 37 H Creatinine 3.26 H Glucose 242 H Calcium 8.1 L Liver Function 04/15/18 Range/Units 04:10 Total Bilirubin 0.3 (0.3-1.0) mg/dL AST 14 (13-39) Units/L ALT 11 (7-52) Units/L Alkaline Phosphatase 165 H (34-104) Units/L Albumin 2.3 L (3.5-5.7) g/dL - ABG Interpretation ABG results: PT/INR, D-dimer PT 12.1 Seconds (9.4-12.1) 04/14/18 04:00 Consult Discharge Plan - Plan Referrals: Tristen Quintana MD [Primary Care Provider] - (patient will follow up with [facility] pcp)
[2018-04-15] MEDS: Insulin DETEMIR 100 UNIT/ML X5UNITS SQ SCH (20:54)
[2018-04-15] MEDS: *HR* OxyCODONE/APAP 10/325 TABLET PO PRN (21:01)
[2018-04-15] MEDS: 0.9 % Sodium Chloride 1,000 ML IVC SCH (22:11)
[2018-04-16] MEDS: *HR* OxyCODONE/APAP 10/325 TABLET PO PRN (03:16)
[2018-04-16 03:34] LABS: Basophils % 0.5 %; Eosinophils # 0.1 K/mcL (0.0-0.6); Eosinophils % 2.1 %; Hematocrit 24.2 % (35.3-44.9); Hemoglobin 7.4 g/dL (11.5-15.4); Immature Granulocytes % 0.5 % (0-4); Lymphocytes # 1.4 K/mcL (0.6-4.6); Lymphocytes % 23.3 %; Mean Corpuscular HGB Conc 30.6 g/dL (31.6-35.5); Mean Corpuscular Volume 88.3 fL (83.0-100.0); Mean Platelet Volume 10.7 fL (9.4-12.4); Monocytes # 0.5 K/mcL (0.0-1.3); Monocytes % 8.2 %; Neutrophils # 3.8 K/mcL (1.6-8.9); Platelet Count 161 K/mcL (140-400); Red Blood Count 2.74 M/mcL (3.82-4.97); Red Cell Distribution Width 17.2 % (11.5-14.5); Segmented Neutrophils % 65.4 %
[2018-04-16 03:52] LABS: Albumin 2.2 g/dL (3.5-5.7); Albumin/Globulin Ratio 0.8 (1.1-2.2); Bilirubin,Total 0.2 mg/dL (0.3-1.0); Calcium 7.9 mg/dL (8.6-10.3); Globulin 2.6 g/dL (2.4-3.5); Potassium 4.1 mEq/L (3.5-5.1); Total Protein 4.8 g/dL (6.4-8.9)
[2018-04-16] MEDS ORDERED: Insulin DETEMIR 100 UNIT/ML X5UNITS SQ ONE (08:00)
[2018-04-16] MEDS: Aspirin Enteric Coated 81 MG Tablet PO SCH (08:23)
[2018-04-16] MEDS: Cholecalciferol (D-3) 1,000 UNIT TABLET PO SCH (08:23)
[2018-04-16] MEDS: Gabapentin 100 MG CAPSULE PO SCH ×3 (08:23→20:51)
[2018-04-16] MEDS: ARIPiprazole 10 MG TABLET PO SCH (08:24)
[2018-04-16] MEDS: 0.9 % Sodium Chloride 1,000 ML IVC SCH (08:24)
[2018-04-16] MEDS: Lactobacillus 1 EACH CAP.SPRINK PO SCH ×2 (08:24→20:51)
[2018-04-16] MEDS: Sucralfate 1 GM TABLET PO SCH ×4 (08:24→20:51)
[2018-04-16] MEDS: Renal Vitamin 1 MG CAPSULE PO SCH (08:24)
[2018-04-16] MEDS: Metoclopramide 10 MG/10 ML UD.LIQ PO SCH ×3 (08:24→16:28)
[2018-04-16] MEDS: Calcium Acetate 667 MG CAPSULE PO SCH ×3 (08:24→16:28)
[2018-04-16] MEDS: Insulin LISPRO 300 UNITS/3 ML VIAL SQ SCH ×4 (08:25→20:55)
[2018-04-16] MEDS: Gentamicin Oint 15 GM TUBE TP SCH ×5 (08:25→20:53)
[2018-04-16] MEDS: Budesonide/Formoterol 160/4.5 MDI IH SCH ×2 (10:33→19:55)
--- NOTE | 2018-04-16 14:10 | Internal Med Progress Note ---
Date of Encounter: 04/16/18 Time of Encounter: 11:00 - Assessment and plan (1) Abdominal pain Current Visit: Yes Status: Acute Assessment and plan: significantly improve Troponin negative x2 CT abdomen reviewed with hiatal hernia. Pain may be due to ramus fracture and esophagitis. s/p EGD 04/15/18 with esophageal ulcers and evidence of gastroparesis. GI following. Hemoglobin was dropping but now stabelized around 7.5. Denies any current GI bleed. Plan to D/c tomorrow. Qualifiers: Qualified Code(s): R10.9 - Unspecified abdominal pain (2) Fracture of superior ramus of pubis Current Visit: Yes Status: Acute Assessment and plan: Fracture 2/2 fall one month ago Pain control Qualifiers: Qualified Code(s): S32.519A - Fracture of superior rim of unspecified pubis, initial encounter for closed fracture (3) End-stage renal disease (ESRD) Current Visit: No Status: Acute Assessment and plan: ESRD on HD MWF Euvolemic, nephrology following. Continue dialysis as scheduled - Time Spent With Patient Total time spent is greater than 50% in coordination of care (as documented) at patient's floor/unit and/or counseling patient: - Subjective Interval history: Patient appears to be much better this morning. Stated that abdominal pain have improved a lot and does not bother her much anymore. - Constitutional Vitals: Temp Pulse Resp BP Pulse Ox 98.1 F 83 16 159/79 98 04/16/18 11:25 04/16/18 11:25 04/16/18 11:25 04/16/18 11:25 04/16/18 11:25 Exam: General: Alert and oriented. morbidly obese. No acute distress. Skin: Normal color, no rash, no lesions. HEENT: EOMI, pupils equal, round and reactive. Cardiovascular: Regular rate, regular rhythm. No murmurs appreciated. Lungs:b/l ronchi. decrease breath sounds. Abdomen:Soft, mild tenderness diffusely, no rigidity. Extremities:No deformity, no edema or tenderness, no joint swelling or clubbing. Neurological:Normal cognition, no weakness, no numbness. Internal Medicine: Result - Labs CBC & Chem 7: 04/16/18 03:20 04/16/18 03:20 Labs: Short CBC 04/16/18 Range/Units 03:20 WBC 5.8 (4.3-11.1) K/mcL Hgb 7.4 L (11.5-15.4) g/dL Hct 24.2 L (35.3-44.9) % Plt Count 161 (140-400) K/mcL Neutrophils # 3.8 (1.6-8.9) K/mcL BMP 04/16/18 03:20 Sodium 135 L Potassium 4.1 Chloride 103 Carbon Dioxide 27 BUN 16 Creatinine 1.94 H Glucose 301 H Calcium 7.9 L Liver Function 04/16/18 Range/Units 03:20 Total Bilirubin 0.2 L (0.3-1.0) mg/dL AST 16 (13-39) Units/L ALT 12 (7-52) Units/L Alkaline Phosphatase 166 H (34-104) Units/L Albumin 2.2 L (3.5-5.7) g/dL - ABG Interpretation ABG results: PT/INR, D-dimer PT 12.1 Seconds (9.4-12.1) 04/14/18 04:00 Consult Discharge Plan - Plan Referrals: Tristen Quintana MD [Primary Care Provider] - (patient will follow up with [facility] pcp)
--- NOTE | 2018-04-16 14:48 | Nephrology Progress Note ---
Date of Encounter: 04/15/18 Time of Encounter: 12:00 - Assessment and Plan (1) AV graft malfunction Current Visit: Yes Status: Acute Will address in outpatient with her vascular surgeon, Dr waller, appt tentatively for wednesday for AV access intervention and in the ime dialyze with temp access today Qualifiers: Encounter type: initial encounter Qualified Code(s): T82.590A - Other mechanical complication of surgically created arteriovenous fistula, initial encounter (2) Abdominal pain Current Visit: Yes Status: Acute Per primary team Qualifiers: Abdominal location: generalized Qualified Code(s): R10.84 - Generalized abdominal pain (3) End-stage renal disease on hemodialysis Current Visit: Yes Status: Acute Continue HD with UF as tolerated (4) Anemia Current Visit: No Status: Acute Hgb low but stable, eiology still unclear. Not CKD as she is regularly on EPO/ iv iron in outpatient HD unit Qualifiers: Anemia type: unspecified type Qualified Code(s): D64.9 - Anemia, unspecified Subjective Principal diagnosis: abdominal pain, ESRD on dialysis Interval history: Pt seen and examined on HD with now new complaints via temp HD catheter Objective - Vital Signs Vital signs: Vital Signs Temp Pulse Resp BP Pulse Ox 04/16/18 11:25 98.1 F 83 16 159/79 98 04/16/18 10:33 18 97 04/16/18 06:59 98.2 F 83 16 146/75 98 04/16/18 03:13 98.1 F 89 17 116/66 98 04/15/18 23:06 98.3 F 87 18 111/64 98 04/15/18 21:42 14 94 04/15/18 21:00 98 04/15/18 18:29 98.0 F 92 20 116/72 98 04/15/18 15:33 97.5 F L 105 16 122/72 98 Intake and Output 04/15/18 04/16/18 04/16/18 23:59 07:59 15:59 Intake Total 1979 400 / 400 60 / 60 Output Total 0 / 0 Balance 1979 400 / 400 60 / 60 Intake: IV Fluids 100 / 100 Zosyn 3.375 GM In 0.9 % Sodium 100 / 100 Chloride (Mini-Bag +) 100 ML @ 25 mls/hr IVPB Q12HR [facility] Rx#: [id number] Oral 1880 / 1880 400 / 400 60 / 60 Output: Urine 0 / 0 Other: Meal janell crackers Lunch Percent of Meal Consumed 100% 0% Stool Size Large Small Stool Consistency soft soft formed Stool Color Brown Brown Yellow # Voids 1 # Bowel Movements 1 # Bowel Movement Diapers 1 Weight 99.9 kg Blood Glucose* 284 252 248 - General Appearance General appearance: Present: chronically ill (NAD) EENT: Present: ATNC, mucous membranes moist Neck: Present: no JVD, supple Respiratory: Present: clear Cardiology: Present: edema (decerased LE bilat), normal S1, normal S2 Dialysis Vascular Access: Venous Catheter (temp HD IJ) thrill: No bruit: No Gastrointestinal: Present: no tenderness, no guarding, obese Integumentary: Present: warm and dry Neurologic: Present: no focal deficit Musculoskeletal: Present: no deformities Psychiatric: Present: mood/affect appropriate, cooperative - Lab 04/16/18 03:20 04/16/18 03:20 Most recent lab results Calcium 7.9 mg/dL (8.6-10.3) L 04/16/18 03:20 Consult Discharge Plan - Plan Referrals: Tristen Quintana MD [Primary Care Provider] - (patient will follow up with [facility] pcp)
--- NOTE | 2018-04-16 14:53 | Nephrology Progress Note ---
Date of Encounter: 04/16/18 Time of Encounter: 11:00 - Assessment and Plan (1) AV graft malfunction Current Visit: Yes Status: Acute Will address in outpatient with her vascular surgeon, Dr oconnor, appt tentatively for wednesday for AV access intervention Qualifiers: Encounter type: initial encounter Qualified Code(s): T82.590A - Other mechanical complication of surgically created arteriovenous fistula, initial encounter (2) Abdominal pain Current Visit: Yes Status: Acute Per primary team Qualifiers: Abdominal location: generalized Qualified Code(s): R10.84 - Generalized abdominal pain (3) End-stage renal disease on hemodialysis Current Visit: Yes Status: Acute next HD tentatively wednesday or wednesday once access intervention by Dr Oconnor (4) Anemia Current Visit: No Status: Acute Hgb low but stable, etiology still unclear. Not CKD as she is regularly on EPO/ iv iron in outpatient HD unit Qualifiers: Anemia type: unspecified type Qualified Code(s): D64.9 - Anemia, unspecified Subjective Principal diagnosis: abdominal pain, ESRD on dialysis Interval history: Pt seen and examined feeling great today with no abd pain and awaiting discharge Objective - Vital Signs Vital signs: Vital Signs Temp Pulse Resp BP Pulse Ox 04/16/18 11:25 98.1 F 83 16 159/79 98 04/16/18 10:33 18 97 04/16/18 06:59 98.2 F 83 16 146/75 98 04/16/18 03:13 98.1 F 89 17 116/66 98 04/15/18 23:06 98.3 F 87 18 111/64 98 04/15/18 21:42 14 94 04/15/18 21:00 98 04/15/18 18:29 98.0 F 92 20 116/72 98 04/15/18 15:33 97.5 F L 105 16 122/72 98 Intake and Output 04/15/18 04/16/18 04/16/18 23:59 07:59 15:59 Intake Total 1979 400 / 400 60 / 60 Output Total 0 / 0 Balance 1979 400 / 400 60 / 60 Intake: IV Fluids 100 / 100 Zosyn 3.375 GM In 0.9 % Sodium 100 / 100 Chloride (Mini-Bag +) 100 ML @ 25 mls/hr IVPB Q12HR [facility] Rx#: [id number] Oral 1880 / 1880 400 / 400 60 / 60 Output: Urine 0 / 0 Other: Meal janell crackers Lunch Percent of Meal Consumed 100% 0% Stool Size Large Small Stool Consistency soft soft formed Stool Color Brown Brown Yellow # Voids 1 # Bowel Movements 1 # Bowel Movement Diapers 1 Weight 99.9 kg Blood Glucose* 284 252 248 - General Appearance General appearance: Present: chronically ill EENT: Present: ATNC, mucous membranes moist Neck: Present: no JVD, supple Respiratory: Present: clear Cardiology: Present: edema (race LE bilat), normal S1, normal S2 Dialysis Vascular Access: Venous Catheter (temp IJ HD) thrill: No bruit: No Gastrointestinal: Present: no tenderness, no guarding, obese Integumentary: Present: warm and dry, hyperpigmentation Neurologic: Present: no focal deficit Musculoskeletal: Present: no deformities Psychiatric: Present: mood/affect appropriate, cooperative - Lab 04/16/18 03:20 04/16/18 03:20 Most recent lab results Calcium 7.9 mg/dL (8.6-10.3) L 04/16/18 03:20 Consult Discharge Plan - Plan Referrals: Tristen Quintana MD [Primary Care Provider] - (patient will follow up with [facility] pcp)
[2018-04-16] MEDS: Insulin DETEMIR 100 UNIT/ML X5UNITS SQ SCH (20:51)
[2018-04-17] MEDS: *HR* OxyCODONE/APAP 10/325 TABLET PO PRN (02:41)
[2018-04-17 04:57] LABS: Basophils % 0.5 %; Eosinophils # 0.1 K/mcL (0.0-0.6); Eosinophils % 1.8 %; Hematocrit 25.2 % (35.3-44.9); Hemoglobin 7.6 g/dL (11.5-15.4); Immature Granulocytes % 0.6 % (0-4); Lymphocytes # 1.3 K/mcL (0.6-4.6); Lymphocytes % 16.2 %; Mean Corpuscular HGB Conc 30.2 g/dL (31.6-35.5); Mean Corpuscular Volume 89.7 fL (83.0-100.0); Mean Platelet Volume 10.5 fL (9.4-12.4); Monocytes # 0.5 K/mcL (0.0-1.3); Monocytes % 6.9 %; Neutrophils # 5.7 K/mcL (1.6-8.9); Platelet Count 172 K/mcL (140-400); Red Blood Count 2.81 M/mcL (3.82-4.97); Red Cell Distribution Width 17.1 % (11.5-14.5)
[2018-04-17 05:17] LABS: Albumin 2.3 g/dL (3.5-5.7); Albumin/Globulin Ratio 0.9 (1.1-2.2); Bilirubin,Total 0.2 mg/dL (0.3-1.0); Calcium 8.5 mg/dL (8.6-10.3); Globulin 2.5 g/dL (2.4-3.5); Total Protein 4.8 g/dL (6.4-8.9)
[2018-04-17] MEDS: Cholecalciferol (D-3) 1,000 UNIT TABLET PO SCH (07:57)
[2018-04-17] MEDS: Calcium Acetate 667 MG CAPSULE PO SCH ×3 (07:57→16:40)
[2018-04-17] MEDS: Sucralfate 1 GM TABLET PO SCH ×4 (07:57→21:32)
[2018-04-17] MEDS: Lactobacillus 1 EACH CAP.SPRINK PO SCH ×2 (07:58→21:32)
[2018-04-17] MEDS: Aspirin Enteric Coated 81 MG Tablet PO SCH (07:58)
[2018-04-17] MEDS: Metoclopramide 10 MG/10 ML UD.LIQ PO SCH ×3 (07:58→16:40)
[2018-04-17] MEDS: Renal Vitamin 1 MG CAPSULE PO SCH (07:58)
[2018-04-17] MEDS: Gentamicin Oint 15 GM TUBE TP SCH ×4 (07:58→21:34)
[2018-04-17] MEDS: ARIPiprazole 10 MG TABLET PO SCH (07:58)
[2018-04-17] MEDS: Gabapentin 100 MG CAPSULE PO SCH ×3 (07:58→21:31)
[2018-04-17] MEDS: Insulin LISPRO 300 UNITS/3 ML VIAL SQ SCH ×4 (08:01→21:32)
[2018-04-17] MEDS: Budesonide/Formoterol 160/4.5 MDI IH SCH ×2 (10:17→20:34)
--- NOTE | 2018-04-17 10:50 | Nephrology Progress Note ---
Date of Encounter: 04/17/18 - Assessment and Plan (1) AV graft malfunction Current Visit: Yes Status: Acute Will address in outpatient with her vascular surgeon, Dr oconnor, appt tentatively for wednesday for AV access intervention Qualifiers: Encounter type: initial encounter Qualified Code(s): T82.590A - Other mechanical complication of surgically created arteriovenous fistula, initial encounter (2) Abdominal pain Current Visit: Yes Status: Acute Per primary team Qualifiers: Abdominal location: generalized Qualified Code(s): R10.84 - Generalized abdominal pain (3) End-stage renal disease on hemodialysis Current Visit: Yes Status: Acute next HD tentatively wednesday or wednesday once access intervention by Dr Oconnor (4) Anemia Current Visit: No Status: Acute Hgb low but stable, etiology still unclear. Not CKD as she is regularly on EPO/ iv iron in outpatient HD unit Qualifiers: Anemia type: unspecified type Qualified Code(s): D64.9 - Anemia, unspecified Subjective Principal diagnosis: abdominal pain, ESRD on dialysis Interval history: Pt seen and examined feeling great today with no abd pain and awaiting discharge Objective - Vital Signs Vital signs: Vital Signs Temp Pulse Resp BP Pulse Ox 04/17/18 10:18 18 98 04/17/18 07:39 98.1 F 86 19 165/71 99 04/17/18 04:59 98.3 F 87 16 146/74 99 04/17/18 00:35 98.8 F 83 18 127/54 100 04/16/18 19:55 20 91 04/16/18 18:28 97.4 F L 93 19 130/81 92 04/16/18 16:01 98.8 F 94 22 155/53 98 04/16/18 11:25 98.1 F 83 16 159/79 98 Intake and Output 04/16/18 04/17/18 04/17/18 23:59 07:59 15:59 Intake Total 480 / 480 240 / 240 540 / 540 Output Total 0 / 0 Balance 480 / 480 240 / 240 540 / 540 Intake: Oral 480 / 480 240 / 240 540 / 540 Output: Urine 0 / 0 Other: Meal two cans of soup cereal Breakfast Percent of Meal Consumed 100% 100% 75% # Bowel Movements 1 Blood Glucose* 275 201 - Lab 04/17/18 04:45 04/17/18 04:45 Most recent lab results Calcium 8.5 mg/dL (8.6-10.3) L 04/17/18 04:45 Consult Discharge Plan - Plan Referrals: Tristen Quintana MD [Primary Care Provider] - (patient will follow up with [facility] pcp)
--- NOTE | 2018-04-17 15:28 | Discharge Summary ---
- NOTES TO OUTPATIENT PROVIDER Notes to Outpatient Provider: PCP in 7 days. Vascular surgeon and neprhology out pt Orders not resulted at time of discharge: Pending orders 04/15/18 09:44 Surgical Pathology [PTH] Routine Date of Encounter: 04/17/18 Time of Encounter: 15:24 - Discharge Diagnosis (1) Fracture of superior ramus of pubis Priority: Primary Status: Acute Assessment and Plan: Fracture 2/2 fall one month ago. PRN pain control Qualifiers: Qualified Code(s): S32.519A - Fracture of superior rim of unspecified pubis, initial encounter for closed fracture (2) ESRD (end stage renal disease) Priority: Secondary Status: Chronic Assessment and Plan: ESRD on HD MWF. Pt has AV graft malfunction that will be addressed by vascular surgeon, Dr. Oconnor out pt. Per nephrology, pt has appt on Wednesday for AV access intervention. (3) Abdominal pain Priority: Secondary Status: Acute Assessment and Plan: PRN pain control. f/u with PCP out pt. Abdominal pain resolved. s/p EGD see surgery for report. Qualifiers: Abdominal location: generalized Qualified Code(s): R10.84 - Generalized abdominal pain (4) Anemia Priority: Secondary Status: Chronic Assessment and Plan: Anemia multi-factorial. Iron and transferrin low which is consistent with anemia of chronic disease. Hgb low etiology still unclear. Not CKD as she is regularly on EPO/iv iron in outpatient HD unit per nephrology. Will give one unit of blood to keep hgb > 8.0 due to hx of cardiac disease. Pt seen by GI and she is s/p EGD. 3 cratered esophageal ulcers with no bleeding found, suspected gastroparesis, and large bezhoar in antrum. Pt will likely benefit from one unit of PRBC. In light of her hx of CAD will like to keep hgb > 8. Will need hgb followed up out pt at rehab facility. Qualifiers: Anemia type: due to chronic kidney disease Chronic kidney disease stage: on chronic dialysis Qualified Code(s): N18.6 - End stage renal disease; D63.1 - Anemia in chronic kidney disease; Z99.2 - Dependence on renal dialysis (5) Gastroparesis Priority: Secondary Status: Acute Assessment and Plan: [facility] course: Ms. Riley is a 63 year old female Discharge discussed with: patient - Time Spent with Patient Total time spent providing and/or coordinating discharge services: Greater than 30 minutes - Discharge Medications Home Medications: Colestipol HCl [Colestid] 1 gm PO BID 06/12/15 [History] Calcium Acetate [Phos-LO] 1,334 mg PO TIDWM 09/06/16 [History] Folic Acid/Vit Bcomp,C [Renal Vitamin Tablet] 0.8 mg PO DAILY 04/15/17 [History] ARIPiprazole [Abilify] 10 mg PO DAILY 09/13/17 [History] Aspirin Enteric Coated [Aspirin EC] 81 mg PO DAILY 09/13/17 [History] Budesonide/Formoterol 160/4.5 [Symbicort 160/4.5] 2 puff IH BIDR 09/13/17 [ History] Cholecalciferol (Vitamin D3) [Vitamin D3] 50,000 unit PO TH 09/13/17 [History] Sennosides [Senna] 8.6 mg PO BID PRN 09/13/17 [History] Sevelamer [Renvela] 800 mg PO TID 09/13/17 [History] Albuterol Neb [AccuNeb] 0.63 mg IH Q6H PRN 10/18/17 [History] Oxybutynin [Ditropan] 5 mg PO BID 11/11/17 [History] Insulin LISPRO [Humalog Kwikpen U-100] 0 unit SQ ACHS 11/25/17 [History] Acetaminophen [Tylenol] 650 mg PO Q6HR PRN tablet 12/14/17 [Rx] amLODIPine [Norvasc] 5 mg PO DAILY 12/30/17 [History] Clopidogrel [Plavix] 75 mg PO DAILY 02/03/18 [History] Saccharomyces Boulardii [Florastor] 250 mg PO BID #20 capsule 02/09/18 [Rx] Rosuvastatin Calcium [Crestor] 20 mg PO DAILY 02/27/18 [History] Amitriptyline [Elavil] 50 mg PO HS tablet 03/24/18 [Rx] Carvedilol [Coreg] 6.25 mg PO BIDWM tablet 03/30/18 [Rx] Darbepoetin [Aranesp] 60 mcg SQ QWEEK syringe 03/30/18 [Rx] Insulin DETEMIR [Levemir] 10 unit SQ HS 04/04/18 [History] metOLazone [Zaroxolyn] 5 mg PO DAILY 04/04/18 [History] Gabapentin [Neurontin] 100 mg PO TID 3 Days #9 capsule 04/08/18 [Rx] Gentamicin Oint [Garamycin] 1 appl TP QID 3 Days #1 tube 04/08/18 [Rx] Metoclopramide [Reglan] 5 mg PO TIDAC 3 Days #9 ud.liq 04/08/18 [Rx] Omeprazole [PriLOSEC] 40 mg PO DAILY 3 Days #3 capsule.dr 04/08/18 [Rx] OxyCODONE/APAP 10/325 [Percocet 10/325 MG] 1 tab PO Q6H PRN 3 Days #12 tablet [Rx] Piperacillin/Tazobactam [Zosyn] 3.375 gm IVPB Q12HR 7 Days #14 vial 04/08/18 [Rx ] Sodium Hypochlorite 0.25% [Dakin's (Half-Strength 0.25%)] 1 appl TP BID 3 Days # 1 bottle 04/08/18 [Rx] Sucralfate [Carafate] 1 gm PO QIDAC 3 Days #12 tablet 04/08/18 [Rx] Vancomycin [Vancocin] 500 each IV MOWEFR #3 vial 04/08/18 [Rx] Allergies/Adverse Reactions: 3 Allergy/AdvReac Type Severity Reaction Status Date / Time No Known Allergies Allergy Verified 04/11/18 18:27 Date of admission: 04/11/18 18:13 Primary care physician: Tristen Quintana MD Consults: 04/12/18 18:10 Consult to Nephrology [CONS] Routine Consulting Provider: Kidney Olivia/MARCO/SWAPNA/MILLIE Reason for Consult: ESRD on HD MWF. Needs scheduled HD while inpatient. Call Completed: No 04/13/18 07:30 Consult to Dialysis [CONS] ONCE 04/13/18 09:12 Consult to Gastroenterology [CONS] Routine Consulting Provider: Gastroenterology Olivia Reason for Consult: abdominal pain likely esophagitis Call Completed: No 04/13/18 11:03 Consult to Interventional Radiology [CONS] Routine Consulting Provider: Radiology Interventional Cols Reason for Consult: Needs shuntogram, AVG with no thrill or bruit Call Completed: No 04/13/18 11:04 Consult to Wound Care [CONS] Routine Reason for Consult: Stage 3 Pressure Injury to coccyx. No wound care ordered but wound care meds ordered Call Completed: No 04/14/18 07:50 Consult to Regulator Assembler [CONS] Routine Reason for SW Consult: rtn to WMP 04/15/18 09:00 Consult to Dialysis [CONS] ONCE 04/16/18 08:02 Consult to Nutrition [CONS] Routine Comment: gastroparesis Consulting Provider: NUTRITION Reason for Dietary Consult: Other Other:: Diet for gastroparesis - Constitutional Vitals: Temp Pulse Resp BP Pulse Ox 98.0 F 84 17 158/72 100 04/17/18 11:48 04/17/18 11:48 04/17/18 11:48 04/17/18 11:48 04/17/18 11:48 - Head Head exam: Present: atraumatic, normocephalic - Eye Eye exam: Present: PERRL, conjuntiva pink, sclera anicteric Pupils: Present: PERRL - Neck Neck exam general surgery: Present: supple, trachea midline. Absent: lymphadenopathy - Respiratory Respiratory exam: Present: CTAB. Absent: accessory muscle use, rales, rhonchi, wheezes - Cardiovascular Cardiovascular exam: Present: RRR, +S1, +S2. Absent: diastolic murmur, gallop, rubs, systolic murmur - GI/Abdominal GI/Abdominal exam: Present: normal bowel sounds, soft, no peritoneal signs. Absent: distended, tenderness - Extremities Exam Extremities exam: Present: warm, radial pulses palpable and symmetrical. Absent : calf tenderness, cyanotic, pedal edema - Neurological Exam Neurological exam: Present: CN II-XII intact, oriented X3, no focal deficits. Absent: pronater drift, facial droop, speech deficit - Skin Skin exam: Present: dry, intact - Patient Status Disposition: Transfer Inpatient Rehab Fac Condition: Good Overall status at discharge: patient is back to baseline - Discharge Instructions Follow Up With: Tristen Quintana MD [Primary Care Provider] - (patient will follow up with f pcp) - Diet and Activity Activity: increase activity as tolerated Diet: advance to your usual diet
--- NOTE | 2018-04-17 16:28 | Physician Discharge Referral ---
ExtendedCare Referral Info Transfer To: fracture of supeior ramus of pubis. Provider in Charge after Transfer: PCP Institutional Level of Care: Skilled - Diagnosis (1) Fracture of superior ramus of pubis Status: Acute (2) ESRD (end stage renal disease) Status: Chronic (3) Abdominal pain Status: Acute (4) Anemia Status: Chronic (5) Gastroparesis Status: Acute - Transfer Medications Home Medications: Colestipol HCl [Colestid] 1 gm PO BID 06/12/15 [History] Calcium Acetate [Phos-LO] 1,334 mg PO TIDWM 09/06/16 [History] ARIPiprazole [Abilify] 10 mg PO DAILY 09/13/17 [History] Aspirin Enteric Coated [Aspirin EC] 81 mg PO DAILY 09/13/17 [History] Budesonide/Formoterol 160/4.5 [Symbicort 160/4.5] 2 puff IH BIDR 09/13/17 [ History] Cholecalciferol (Vitamin D3) [Vitamin D3] 50,000 unit PO TH 09/13/17 [History] Sevelamer [Renvela] 800 mg PO TID 09/13/17 [History] Albuterol Neb [AccuNeb] 0.63 mg IH Q6H PRN 10/18/17 [History] Oxybutynin [Ditropan] 5 mg PO BID 11/11/17 [History] Acetaminophen [Tylenol] 650 mg PO Q6HR PRN tablet 12/14/17 [Rx] amLODIPine [Norvasc] 5 mg PO DAILY 12/30/17 [History] Clopidogrel [Plavix] 75 mg PO DAILY 02/03/18 [History] Saccharomyces Boulardii [Florastor] 250 mg PO BID #20 capsule 02/09/18 [Rx] Rosuvastatin Calcium [Crestor] 20 mg PO DAILY 02/27/18 [History] Amitriptyline [Elavil] 50 mg PO HS tablet 03/24/18 [Rx] Carvedilol [Coreg] 6.25 mg PO BIDWM tablet 03/30/18 [Rx] Darbepoetin [Aranesp] 60 mcg SQ QWEEK syringe 03/30/18 [Rx] metOLazone [Zaroxolyn] 5 mg PO DAILY 04/04/18 [History] Gabapentin [Neurontin] 100 mg PO TID 3 Days #9 capsule 04/08/18 [Rx] Gentamicin Oint [Garamycin] 1 appl TP QID 3 Days #1 tube 04/08/18 [Rx] Metoclopramide [Reglan] 5 mg PO TIDAC 3 Days #9 ud.liq 04/08/18 [Rx] Omeprazole [PriLOSEC] 40 mg PO DAILY 3 Days #3 capsule.dr 04/08/18 [Rx] OxyCODONE/APAP 10/325 [Percocet 10/325 MG] 1 tab PO Q6H PRN 3 Days #12 tablet [Rx] Piperacillin/Tazobactam [Zosyn] 3.375 gm IVPB Q12HR 7 Days #14 vial 04/08/18 [Rx ] Sodium Hypochlorite 0.25% [Dakin's (Half-Strength 0.25%)] 1 appl TP BID 3 Days # 1 bottle 04/08/18 [Rx] Sucralfate [Carafate] 1 gm PO QIDAC 3 Days #12 tablet 04/08/18 [Rx] Vancomycin [Vancocin] 500 each IV MOWEFR #3 vial 04/08/18 [Rx] Renal Vitamin [Renal Caps Softgel] 1 mg PO DAILY capsule 04/17/18 [Rx] Allergies/Adverse Reactions: 3 Allergy/AdvReac Type Severity Reaction Status Date / Time No Known Allergies Allergy Verified 04/11/18 18:27 - Respiratory Orders Smoking Cessation: Smoking cessation has been advised. For more information, call the [place] Tobacco Quit Line at 6-652-EXQD-NOW. - Advance Directives Code Status: Full Code CERTIFICATION: I certify that the transfer of the above named patient to an Extended Care Facility is necessary for the continuing treatment of the diagnosis listed. The above information is true and accurate reflection of patient's current condition. Confidential - Redisclosure prohibited without a patient's written consent.
[2018-04-17] MEDS ORDERED: 0.9 % Sodium Chloride 250 ML ONE (17:25)
[2018-04-17 20:29] VITALS: BP 158/72
[2018-04-17] MEDS: Insulin DETEMIR 100 UNIT/ML X5UNITS SQ SCH (21:34)
[2018-04-17 21:44] LABS: Hematocrit 28.4 % (35.3-44.9); Hemoglobin 8.6 g/dL (11.5-15.4)
== END 2018-04-17 23:36 ==
LOC: 2ANU 14:38 → EMEROO 14:38 → SUATTDRO 18:13 → 2ANU 18:57
PROVIDERS: ADMIT Internal Medicine; ATTEND Student in an Organized Health Care Education/Training Program
PROC: ENDOERT (2018-04-15 10:00)

== ENCOUNTER 2018-06-11 10:40 | Inpatient (IN) ==
[2018-06-11] MEDS ORDERED: Piperacillin/Tazobactam 3.375 GM in 0.9 % Sodium Chloride Mini Bag 100 ML IVPB ONE (10:50)
--- NOTE | 2018-06-11 10:54 | Emergency Department Note ---
Disposition Clinical Impression: Dyspnea Qualifiers: Dyspnea type: unspecified Qualified Code(s): R06.00 - Dyspnea, unspecified Pulmonary edema Qualifiers: Chronicity: acute Qualified Code(s): J81.0 - Acute pulmonary edema Laceration of right lower leg with infection Qualifiers: Encounter type: initial encounter Qualified Code(s): S81.811A - Laceration without foreign body, right lower leg, initial encounter Allergic reaction caused by a drug Qualifiers: Encounter type: initial encounter Qualified Code(s): T78.40XA - Allergy, unspecified, initial encounter Disposition: Admitted As Inpatient Condition: Fair Referrals: Zoya Rogel MD [Primary Care Provider] - Forms: ED Satisfaction Letter Time of Disposition: 14:57 SOB HPI - General Chief Complaint: ED Shortness of Breath/Dyspnea Stated Complaint: HERNÁN Time Seen by Provider: 06/11/18 10:47 Source: patient, EMS Mode of arrival: EMS Limitations: no limitations Nursing Notes Reviewed: Yes Vital Signs Reviewed: Yes - History of Present Illness Patient is a 63-year-old female with past medical history of end-stage renal disease, dialysis dependent, left-sided fistula. She does have a history of diabetes, CHF, COPD and chronically on 3 L nasal cannula oxygen, chronic right lower extremity wound that has not present for approximately 2 months after laceration and repair. She presents today from dialysis due to shortness of breath. She states that she usually receives dialysis Wednesday, , Wednesday. She made it through her entire 4 hours of dialysis today. However, she had shortness of breath throughout dialysis. She presented today via EMS due to this shortness of breath. She also states that she has had a cough, no productive phlegm. Denies any chest pain, nausea, vomiting, fevers, diarrhea, abdominal pain. She also notes right lower 70 pain near the lateral aspect of her right calf. She states that she has been on antibiotics for the past 1 week , recently finished up Augmentin course within the past week. She notes pus drainage and significant pain from that area. - Related Data Home Medications Medication Instructions Recorded Confirmed Colestipol HCl [Colestid] 1 gm PO BID 06/12/15 06/11/18 Calcium Acetate [Phos-LO] 1,334 mg PO TIDWM 09/06/16 06/11/18 ARIPiprazole [Abilify] 10 mg PO DAILY 09/13/17 06/11/18 Aspirin Enteric Coated [Aspirin EC] 81 mg PO DAILY 09/13/17 06/11/18 Budesonide/Formoterol 160/4.5 2 puff IH BIDR 09/13/17 06/11/18 [Symbicort 160/4.5] Cholecalciferol (Vitamin D3) 50,000 unit PO TH 09/13/17 06/11/18 [Vitamin D3] Sevelamer [Renvela] 800 mg PO DAILY 09/13/17 06/11/18 Albuterol Neb [AccuNeb] 0.63 mg IH Q6H PRN 10/18/17 06/11/18 amLODIPine [Norvasc] 5 mg PO DAILY 12/30/17 06/11/18 Clopidogrel [Plavix] 75 mg PO DAILY 02/03/18 06/11/18 Rosuvastatin Calcium [Crestor] 20 mg PO DAILY 02/27/18 06/11/18 metOLazone [Zaroxolyn] 5 mg PO DAILY 04/04/18 06/11/18 Carvedilol 12.5 mg PO BID 04/28/18 06/11/18 Darbepoetin [Aranesp] 60 mcg SQ TH 04/28/18 06/11/18 Insulin DETEMIR [Levemir] 28 unit SQ HS 04/28/18 06/11/18 Insulin LISPRO [HumaLOG] 2 - 10 units SQ TIDWM 04/28/18 06/11/18 Lactobacillus Acidophilus/Fos 1 tab PO DAILY 04/28/18 06/11/18 [Acidophilus Probiotic Tablet] Omeprazole [PriLOSEC] 20 mg PO DAILY 04/28/18 06/11/18 Ondansetron HCl [Zofran] 4 mg PO Q12H PRN 04/28/18 06/11/18 Previous Rx's Medication Instructions Recorded Acetaminophen [Tylenol] 650 mg PO Q6HR PRN tablet 12/14/17 Amitriptyline [Elavil] 50 mg PO HS tablet 03/24/18 Gabapentin [Neurontin] 100 mg PO TID 3 Days #9 capsule 04/08/18 Metoclopramide [Reglan] 5 mg PO TIDAC 3 Days #9 ud.liq 04/08/18 Sucralfate [Carafate] 1 gm PO QIDAC 3 Days #12 tablet 04/08/18 Renal Vitamin [Renal Caps Softgel] 1 mg PO DAILY capsule 04/17/18 OxyCODONE/APAP 10/325 [Percocet 1 tab PO Q6H PRN 3 Days #12 tablet 05/02/18 10/325 MG] Allergies Allergy/AdvReac Type Severity Reaction Status Date / Time piperacillin [From Zosyn] Allergy Anaphylaxis Verified 06/11/18 13:33 tazobactam [From Zosyn] Allergy Anaphylaxis Verified 06/11/18 13:33 All systems ED: reviewed and negative except as stated. Constitutional: Denies: fever Respiratory: Reports: cough, dyspnea, wheezes Gastrointestinal: Denies: abdominal pain, nausea, vomiting, diarrhea Genitourinary: Denies: urgency, dysuria Integumentary: Denies: rash Neurological: Denies: headache, weakness, numbness Past Medical History - Past Medical History Attestation: Yes The following information was validated with the patient. Source: patient Medical history: Reports: atrial fibrillation, CHF, COPD, dementia, diabetes, GI bleed, hyperlipidemia, hypertension, myocardial infarction, peripheral artery disease, renal disease, other Surgical history: Reports: angioplasty/stent, appendectomy, cholecystectomy, coronary bypass (CABG), hysterectomy, knee replacement, other, IVC filter Psychiatric history: Reports: anxiety, depression, schizophrenia, previous psychiatric hospitalization [employer] history: Reports: other - Social History Smoking Status: Current every day smoker Smokeless Tobacco Status: No Alcohol use: Reports: none Drug use: Reports: none Physical Exam - General Limitations: no limitations General appearance: alert, in no apparent distress - Head Head exam: atraumatic, normocephalic, normal inspection - Eye Eye exam: Present: normal appearance, PERRL, EOMI - ENT ENT exam: normal exam, normal oropharynx, mucous membranes moist - Neck Neck exam: Present: normal inspection, full ROM, trachea midline - Chest Chest inspection: Present: normal inspection, symmetric chest wall rise - Respiratory Respiratory exam: Present: other (Significant crackles and rhonchi bilateral lower lobes, increased work of breathing). Absent: stridor - Cardiovascular Cardiovascular exam: Present: regular rate, normal rhythm, normal heart sounds - Abdominal Exam Abdominal exam: Present: soft, Non-Tender. Absent: tenderness, distention, guarding, rebound, rigidity - Extremities Exam Extremities exam: Present: other (Wound of lateral aspect of right lower extremity approximately 8 cm in length with large amount of yellow pus drainage from the wound. Chronic venous stasis dermatitis of bilateral lower extremities.) - Neurological Exam Neurological exam: Present: alert, oriented X3 - Psychiatric Psychiatric exam: Present: normal affect, normal mood - Skin Skin exam: Present: warm, dry, intact, normal color Course Course Narrative: Patient is currently 100% on 3 L nasal cannula which is her home dosing of oxygen. Blood pressure was systolic 100s. She did just finish dialysis. She is crackles and rhonchi bilateral lower lobes. She appears to have increased work of breathing. Did not increase enough to use BiPAP at this time. We will obtain EKG, x-ray, basic blood work, troponin level. Denies any current chest pain. She also has a right lower 70 wound with light amount of pus drainage. I do believe that the patient will need IV antibiotics at this time. 13:25 patient developed tongue swelling and lip swelling after Zosyn ran in She denied any known allergies to any antibiotics. She is given Pepcid, Benadryl, Decadron, IM 0.3 mg epinephrine. 14:00 patient was reassessed multiple times, she had significant reduction in tongue swelling and normalization of tongue and lips after the medication listed above. chest x-ray shows pulmonary vascular congestion with bibasilar atelectasis. Patient is a 29 started on vancomycin and Zosyn preemptively for right leg wound infection treatment. Tib-fib x-ray shows no obvious gas or osteomyelitis. Labs are near baseline for the patient including creatinine near baseline, BNP near baseline. Troponin negative. EKG showed no acute ST changes. Dyspnea has improved at this time that she started some mild increased work of breathing and crackles in bilateral lower lobes.. We will admit the patient for dyspnea, right leg infection, observation after receiving epinephrine. Patient was accepted by Dr. Craig Chest X-Ray 06/11/18 10:49 IMPRESSION: 1. The cardiac silhouette appears at the upper limits of normal for size. 2. Prominence of the pulmonary vasculature with likely bibasilar atelectasis. D/ / Scot Saleh MD / Scot Saleh MD Interpreting Provider: Scot Saleh MD Tibia/Fibula X-Ray 06/11/18 11:31 IMPRESSION: 1. Osteopenia without convincing acute osseous abnormality. 2. Diffuse soft tissue swelling. 3. No evidence of soft tissue emphysema. D/ / Scot Saleh MD / Scot Saleh MD Interpreting Provider: Scot Saleh MD Vital Signs Temperature 97.6 F 06/11/18 10:43 Pulse Rate 83 06/11/18 10:43 Respiratory Rate 18 06/11/18 10:43 Blood Pressure 110/54 06/11/18 10:43 O2 Sat by Pulse Oximetry 100 06/11/18 10:43 Temperature 97.6 F 06/11/18 10:43 Pulse Rate 83 06/11/18 10:43 Respiratory Rate 18 06/11/18 10:43 Blood Pressure 110/54 06/11/18 10:43 O2 Sat by Pulse Oximetry 100 06/11/18 10:48 Oxygen Delivery Oxygen Delivery Nasal Cannula Shortness of Breath/Dyspnea - [facility] Narrative Medical decision making narrative: Patient is currently 100% on 3 L nasal cannula which is her home dosing of oxygen. Blood pressure was systolic 100s. She did just finish dialysis. She is crackles and rhonchi bilateral lower lobes. She appears to have increased work of breathing. Did not increase enough to use BiPAP at this time. We will obtain EKG, x-ray, basic blood work, troponin level. Denies any current chest pain. She also has a right lower 70 wound with light amount of pus drainage. I do believe that the patient will need IV antibiotics at this time. 13:25 patient developed tongue swelling and lip swelling after Zosyn ran in She denied any known allergies to any antibiotics. She is given Pepcid, Benadryl, Decadron, IM 0.3 mg epinephrine. 14:00 patient was reassessed multiple times, she had significant reduction in tongue swelling and normalization of tongue and lips after the medication listed above. chest x-ray shows pulmonary vascular congestion with bibasilar atelectasis. Patient is a 29 started on vancomycin and Zosyn preemptively for right leg wound infection treatment. Tib-fib x-ray shows no obvious gas or osteomyelitis. Labs are near baseline for the patient including creatinine near baseline, BNP near baseline. Troponin negative. EKG showed no acute ST changes. Dyspnea has improved at this time that she started some mild increased work of breathing and crackles in bilateral lower lobes.. We will admit the patient for dyspnea, right leg infection, observation after receiving epinephrine. Patient was accepted by Dr. Craig - Medical Records Medical records reviewed: Yes I reviewed the patient's medical records. - Lab Data Lab results reviewed: Yes I reviewed the patient's lab results. Result diagrams: 06/11/18 10:49 06/11/18 10:49 Lab Results 06/11/18 06/11/18 06/11/18 Range/Units 10:49 10:49 10:49 WBC 6.1 (4.3-11.1) K/mcL RBC 4.27 (3.82-4.97) M/mcL Hgb 11.1 L (11.5-15.4) g/dL Hct 38.0 (35.3-44.9) % MCV 89.0 (83.0-100.0) fL MCH 26.0 L (28.0-33.3) pg MCHC 29.2 L (31.6-35.5) g/dL RDW 17.6 H (11.5-14.5) % Plt Count 170 (140-400) K/mcL MPV 10.7 (9.4-12.4) fL Immature Gran % 0.8 (0-4) % Seg Neutrophils % 69.2 % Lymphocytes % 17.4 % Monocytes % 9.3 % Eosinophils % 2.3 % Basophils % 1.0 % Neutrophils # 4.2 (1.6-8.9) K/mcL Lymphocytes # 1.1 (0.6-4.6) K/mcL Monocytes # 0.6 (0.0-1.3) K/mcL Eosinophils # 0.1 (0.0-0.6) K/mcL Basophils # 0.1 (0.0-0.2) K/mcL Sodium 135 L (136-145) mEq/L Potassium 3.5 (3.5-5.1) mEq/L Chloride 99 (98-107) mEq/L Carbon Dioxide 28 (23-29) mEq/L BUN 16 (8-23) mg/dL Creatinine 2.20 H (0.60-1.20) mg/dL Est GFR ( Amer) 27 L (> 60) Est GFR (Non-Af Amer) 22 L (> 60) BUN/Creatinine Ratio 7 (6-26) Glucose 146 H (70-105) mg/dL Calculated Osmolality 284 (280-300) Lactic Acid (0.5-2.2) mmol/L Calcium 8.1 L (8.6-10.3) mg/dL Troponin I < 0.03 (< 0.04) ng/mL B-Natriuretic Peptide 590 H (Less than 100) pg/mL 06/11/18 Range/Units 11:23 WBC (4.3-11.1) K/mcL RBC (3.82-4.97) M/mcL Hgb (11.5-15.4) g/dL Hct (35.3-44.9) % MCV (83.0-100.0) fL MCH (28.0-33.3) pg MCHC (31.6-35.5) g/dL RDW (11.5-14.5) % Plt Count (140-400) K/mcL MPV (9.4-12.4) fL Immature Gran % (0-4) % Seg Neutrophils % % Lymphocytes % % Monocytes % % Eosinophils % % Basophils % % Neutrophils # (1.6-8.9) K/mcL Lymphocytes # (0.6-4.6) K/mcL Monocytes # (0.0-1.3) K/mcL Eosinophils # (0.0-0.6) K/mcL Basophils # (0.0-0.2) K/mcL Sodium (136-145) mEq/L Potassium (3.5-5.1) mEq/L Chloride (98-107) mEq/L Carbon Dioxide (23-29) mEq/L BUN (8-23) mg/dL Creatinine (0.60-1.20) mg/dL Est GFR ( Amer) (> 60) Est GFR (Non-Af Amer) (> 60) BUN/Creatinine Ratio (6-26) Glucose (70-105) mg/dL Calculated Osmolality (280-300) Lactic Acid 0.8 (0.5-2.2) mmol/L Calcium (8.6-10.3) mg/dL Troponin I (< 0.04) ng/mL B-Natriuretic Peptide (Less than 100) pg/mL - Radiology Data Radiology results reviewed: Yes I reviewed the patient's radiology results. - EKG Data EKG attestation: Yes I reviewed and interpreted this EKG. EKG results narrative: 06/11/2018 at 10:48. Sinus rhythm. Rate 82. QRS 87. QTc 523. No acute ST elevation or depression. Normal axis. S.B.A.R. - S.B.A.R. Situation: Demographics, MOA Background: Presenting Complaint, Relevant PMH, Meds, & Allergies Assessment: Vital Signs, Course and respsone to treatment, Exam Concerns, Patient/Family Expectation, Pertinant Lab Results Recommendation: Barrier(s) to disposition, Recommendation based on pending studies, treatments, or consults S.B.A.R. Report Given to: Dr. Craig Attestation Statement - Attestation Attestation: I, Scot Pinon DO, examined this patient [id number] and my medical decision-making was reviewed with Dr. Karlos Huynh, Resident Physician. I agree with the documented findings, disposition and treatment plan as described except to the extent set forth below. Please see my progress notes for details.
[2018-06-11 11:36] LABS: Basophils # 0.1 K/mcL (0.0-0.2); Eosinophils # 0.1 K/mcL (0.0-0.6); Eosinophils % 2.3 %; Hemoglobin 11.1 g/dL (11.5-15.4); Immature Granulocytes % 0.8 % (0-4); Lymphocytes # 1.1 K/mcL (0.6-4.6); Lymphocytes % 17.4 %; Mean Corpuscular HGB Conc 29.2 g/dL (31.6-35.5); Mean Platelet Volume 10.7 fL (9.4-12.4); Monocytes # 0.6 K/mcL (0.0-1.3); Monocytes % 9.3 %; Neutrophils # 4.2 K/mcL (1.6-8.9); Platelet Count 170 K/mcL (140-400); Red Blood Count 4.27 M/mcL (3.82-4.97); Red Cell Distribution Width 17.6 % (11.5-14.5); Segmented Neutrophils % 69.2 %
--- NOTE | 2018-06-11 11:44 | Emergency Department Note ---
Disposition Clinical Impression: Dyspnea Qualifiers: Dyspnea type: unspecified Qualified Code(s): R06.00 - Dyspnea, unspecified Pulmonary edema Qualifiers: Chronicity: acute Qualified Code(s): J81.0 - Acute pulmonary edema Laceration of right lower leg with infection Qualifiers: Encounter type: initial encounter Qualified Code(s): S81.811A - Laceration without foreign body, right lower leg, initial encounter Allergic reaction caused by a drug Qualifiers: Encounter type: initial encounter Qualified Code(s): T78.40XA - Allergy, unspecified, initial encounter Disposition: Admitted As Inpatient Condition: Fair Referrals: Zoya Rogel MD [Primary Care Provider] - Forms: ED Satisfaction Letter Time of Disposition: 14:32 General Adult HPI - General Chief complaint: ED Shortness of Breath/Dyspnea Stated complaint: HERNÁN Time Seen by Provider: 06/11/18 10:47 Source: patient, EMS Mode of arrival: EMS Limitations: no limitations - History of Present Illness Pain Scale: 5 - Related Data Home Medications Medication Instructions Recorded Confirmed Colestipol HCl [Colestid] 1 gm PO BID 06/12/15 06/11/18 Calcium Acetate [Phos-LO] 1,334 mg PO TIDWM 09/06/16 06/11/18 ARIPiprazole [Abilify] 10 mg PO DAILY 09/13/17 06/11/18 Aspirin Enteric Coated [Aspirin EC] 81 mg PO DAILY 09/13/17 06/11/18 Budesonide/Formoterol 160/4.5 2 puff IH BIDR 09/13/17 06/11/18 [Symbicort 160/4.5] Cholecalciferol (Vitamin D3) 50,000 unit PO TH 09/13/17 06/11/18 [Vitamin D3] Sevelamer [Renvela] 800 mg PO DAILY 09/13/17 06/11/18 Albuterol Neb [AccuNeb] 0.63 mg IH Q6H PRN 10/18/17 06/11/18 amLODIPine [Norvasc] 5 mg PO DAILY 12/30/17 06/11/18 Clopidogrel [Plavix] 75 mg PO DAILY 02/03/18 06/11/18 Rosuvastatin Calcium [Crestor] 20 mg PO DAILY 02/27/18 06/11/18 metOLazone [Zaroxolyn] 5 mg PO DAILY 04/04/18 06/11/18 Carvedilol 12.5 mg PO BID 04/28/18 06/11/18 Darbepoetin [Aranesp] 60 mcg SQ TH 04/28/18 06/11/18 Insulin DETEMIR [Levemir] 28 unit SQ HS 04/28/18 06/11/18 Insulin LISPRO [HumaLOG] 2 - 10 units SQ TIDWM 04/28/18 06/11/18 Lactobacillus Acidophilus/Fos 1 tab PO DAILY 04/28/18 06/11/18 [Acidophilus Probiotic Tablet] Omeprazole [PriLOSEC] 20 mg PO DAILY 04/28/18 06/11/18 Ondansetron HCl [Zofran] 4 mg PO Q12H PRN 04/28/18 06/11/18 Previous Rx's Medication Instructions Recorded Acetaminophen [Tylenol] 650 mg PO Q6HR PRN tablet 12/14/17 Amitriptyline [Elavil] 50 mg PO HS tablet 03/24/18 Gabapentin [Neurontin] 100 mg PO TID 3 Days #9 capsule 04/08/18 Metoclopramide [Reglan] 5 mg PO TIDAC 3 Days #9 ud.liq 04/08/18 Sucralfate [Carafate] 1 gm PO QIDAC 3 Days #12 tablet 04/08/18 Renal Vitamin [Renal Caps Softgel] 1 mg PO DAILY capsule 04/17/18 OxyCODONE/APAP 10/325 [Percocet 1 tab PO Q6H PRN 3 Days #12 tablet 05/02/18 10/325 MG] Allergies Allergy/AdvReac Type Severity Reaction Status Date / Time piperacillin [From Zosyn] Allergy Anaphylaxis Verified 06/11/18 13:33 tazobactam [From Zosyn] Allergy Anaphylaxis Verified 06/11/18 13:33 Constitutional: Denies: fever Respiratory: Reports: cough, dyspnea, wheezes Gastrointestinal: Denies: abdominal pain, nausea, vomiting, diarrhea Genitourinary: Denies: urgency, dysuria Integumentary: Denies: rash Neurological: Denies: headache, weakness, numbness Past Medical History - Past Medical History Medical history: Reports: atrial fibrillation, CHF, COPD, dementia, diabetes, GI bleed, hyperlipidemia, hypertension, myocardial infarction, peripheral artery disease, renal disease, other Surgical history: Reports: angioplasty/stent, appendectomy, cholecystectomy, coronary bypass (CABG), hysterectomy, knee replacement, other, IVC filter Psychiatric history: Reports: anxiety, depression, schizophrenia, previous psychiatric hospitalization [employer] history: Reports: other - Social History Smoking Status: Current every day smoker Smokeless Tobacco Status: No Alcohol use: Reports: none Drug use: Reports: none Physical Exam - General Limitations: no limitations General appearance: alert, in no apparent distress Course Vital Signs Temperature 97.6 F 06/11/18 10:43 Pulse Rate 83 06/11/18 10:43 Respiratory Rate 18 06/11/18 10:43 Blood Pressure 110/54 06/11/18 10:43 O2 Sat by Pulse Oximetry 100 06/11/18 10:43 Temperature 97.6 F 06/11/18 10:43 Pulse Rate 83 06/11/18 10:43 Respiratory Rate 18 06/11/18 10:43 Blood Pressure 110/54 06/11/18 10:43 O2 Sat by Pulse Oximetry 100 06/11/18 10:48 Oxygen Delivery Oxygen Delivery Nasal Cannula Medical Decision Making - Lab Data Result diagrams: 06/11/18 10:49 06/11/18 10:49 Lab Results 06/11/18 06/11/18 06/11/18 Range/Units 10:49 10:49 10:49 WBC 6.1 (4.3-11.1) K/mcL RBC 4.27 (3.82-4.97) M/mcL Hgb 11.1 L (11.5-15.4) g/dL Hct 38.0 (35.3-44.9) % MCV 89.0 (83.0-100.0) fL MCH 26.0 L (28.0-33.3) pg MCHC 29.2 L (31.6-35.5) g/dL RDW 17.6 H (11.5-14.5) % Plt Count 170 (140-400) K/mcL MPV 10.7 (9.4-12.4) fL Immature Gran % 0.8 (0-4) % Seg Neutrophils % 69.2 % Lymphocytes % 17.4 % Monocytes % 9.3 % Eosinophils % 2.3 % Basophils % 1.0 % Neutrophils # 4.2 (1.6-8.9) K/mcL Lymphocytes # 1.1 (0.6-4.6) K/mcL Monocytes # 0.6 (0.0-1.3) K/mcL Eosinophils # 0.1 (0.0-0.6) K/mcL Basophils # 0.1 (0.0-0.2) K/mcL Sodium 135 L (136-145) mEq/L Potassium 3.5 (3.5-5.1) mEq/L Chloride 99 (98-107) mEq/L Carbon Dioxide 28 (23-29) mEq/L BUN 16 (8-23) mg/dL Creatinine 2.20 H (0.60-1.20) mg/dL Est GFR ( Amer) 27 L (> 60) Est GFR (Non-Af Amer) 22 L (> 60) BUN/Creatinine Ratio 7 (6-26) Glucose 146 H (70-105) mg/dL Calculated Osmolality 284 (280-300) Lactic Acid (0.5-2.2) mmol/L Calcium 8.1 L (8.6-10.3) mg/dL Troponin I < 0.03 (< 0.04) ng/mL B-Natriuretic Peptide 590 H (Less than 100) pg/mL 06/11/18 Range/Units 11:23 WBC (4.3-11.1) K/mcL RBC (3.82-4.97) M/mcL Hgb (11.5-15.4) g/dL Hct (35.3-44.9) % MCV (83.0-100.0) fL MCH (28.0-33.3) pg MCHC (31.6-35.5) g/dL RDW (11.5-14.5) % Plt Count (140-400) K/mcL MPV (9.4-12.4) fL Immature Gran % (0-4) % Seg Neutrophils % % Lymphocytes % % Monocytes % % Eosinophils % % Basophils % % Neutrophils # (1.6-8.9) K/mcL Lymphocytes # (0.6-4.6) K/mcL Monocytes # (0.0-1.3) K/mcL Eosinophils # (0.0-0.6) K/mcL Basophils # (0.0-0.2) K/mcL Sodium (136-145) mEq/L Potassium (3.5-5.1) mEq/L Chloride (98-107) mEq/L Carbon Dioxide (23-29) mEq/L BUN (8-23) mg/dL Creatinine (0.60-1.20) mg/dL Est GFR ( Amer) (> 60) Est GFR (Non-Af Amer) (> 60) BUN/Creatinine Ratio (6-26) Glucose (70-105) mg/dL Calculated Osmolality (280-300) Lactic Acid 0.8 (0.5-2.2) mmol/L Calcium (8.6-10.3) mg/dL Troponin I (< 0.04) ng/mL B-Natriuretic Peptide (Less than 100) pg/mL Attestation Statement - Attestation Attestation: I, Scot Pinon DO, examined this patient [id number] and my medical decision-making was reviewed with Dr. Karlos Huynh, Resident Physician. I agree with the documented findings, disposition and treatment plan as described except to the extent set forth below. Please see my progress notes for details. 63-year-old female presents emergency room for evaluation of shortness of breath. Patient is a Wednesday dialysis patient. She presented today from dialysis. Even prior to going into dialysis this morning she is describing shortness of breath. Denies any recent fevers or chills no chest pain no headache no vision changes no nausea vomiting or diarrhea. She has been compliant with her dialysis treatments as well as her other medical issues. She denies any other complaints or symptoms at this point. Patient did complete an entire dialysis treatments morning with approximately 1.3 kg of weight being removed. Patient on presentation here had stable vital signs according to EMS she is alert she is oriented she follows commands. She still describing some increased work of breathing and shortness of breath. Patient denies any other complaints. Physical exam shows a morbidly obese female. No significant increased work of breathing. She does have coarse crackles noted in all 4 listing tran anteriorly and posteriorly in the lungs. No wheezing noted this time. She does have an open wound on the lateral aspect of the right calf. She also has significant pitting edema with wrinkling to the skin which would be consistent from fluid volume shifts with her dialysis. Patient will have detailed workup including chest x-ray CBC chemistry troponin and BNP. Patient will also have evaluation for infectious etiology. Concern is noted for pneumonia versus fluid accumulation. Patient will most likely require admission. Clinically, she appears to be most consistent with respiratory distress secondary to the coarse crackles. Antibiotic regimen will be started with vancomycin and Zosyn coverage for healthcare acquired pneumonia with her dialysis treatment history. We will continue monitoring for symptomatically control is completed and physical exam and disposition determined. See detailed recommendation physical exam, medical intervention, medical decision- making and disposition the resident physician's note. 1300 Patient is being provided the Zosyn antibiotic regimen here for pneumonia. During that the patient started to have swelling of the lips and the mouth. She has no history of drug allergies. Antibiotic was stopped and the patient will begin Pepcid Benadryl Decadron as well as a single dose of intramuscular epinephrine. Disposition will be admission for continuation of care once the full workup and treatment course has been completed. Currently there is no signs of respiratory collapse or demise at this time. 1430 Patient was discussed with the hospitalist. The swelling in the mouth is significantly decreased at this point the patient is able to converse again. Admission process to be completed. Antibody regimen has been started will be continued and inpatient setting. Patient does not meet any criteria for sepsis or other concerning infectious etiology this point outside of pneumonia most likely healthcare acquired.
[2018-06-11 11:57] LABS: BUN/Creatinine Ratio 7 (6-26); Blood Urea Nitrogen 16 mg/dL (8-23); Calcium 8.1 mg/dL (8.6-10.3); Carbon Dioxide 28 mEq/L (23-29); Chloride 99 mEq/L (98-107); Glucose 146 mg/dL (70-105); Osmolality,Calculated 284 (280-300); Potassium 3.5 mEq/L (3.5-5.1); Sodium 135 mEq/L (136-145); eGFR For Non-African Americans 22 (> 60)
[2018-06-11 11:58] LABS: Troponin I < 0.03 ng/mL (< 0.04)
[2018-06-11] MEDS ORDERED: Dexamethasone 4 MG/ML VIAL IVP ONE (13:08)
[2018-06-11] MEDS ORDERED: Famotidine 20 MG/2 ML VIAL IVP ONE (13:08)
[2018-06-11] MEDS ORDERED: *HR* EPINEPHrine 1 MG/ML AMPUL IM ONE (13:09)
[2018-06-11] MEDS ORDERED: Naloxone 0.4 MG/ML INJ IVP PRN (15:01)
[2018-06-11] MEDS ORDERED: Albuterol Neb 0.63 MG/3 ML VIAL IH PRN (15:05)
--- NOTE | 2018-06-11 15:36 | Internal Med History&Physical ---
Date of Encounter: 06/11/18 Time of Encounter: 15:20 Internal Medicine - H&P: HPI Chief complaint: SOB Admitted From: Home Plans for Post Hospital Care: Transfer [facility] History of present illness: Ms. Riley is a 63 year old female CAD S/P stent in 12/2017, HFpEF, COPD on homeO2 , IDDM 2, dyspepsia, historically rate controlled atrial fibrillation not on OAC ( vaginal bleed/ anemia) , and ESRD on hemodialysis (T, , sat) presented to the emergency department from her hemodialysis center for shortness of breath. Patient is a poor historian so most of the history is obtained from the chart. She reports that she has had persistent shortness of breath for the past 2 months but she has noticed that it had worsened in the past week. Her shortness of breath is also associated with a dry cough, she denies sputum production, denies hemoptysis. She has had no recent travel, although she has had multiple hospitalizations. She cannot recall any exacerbating or alleviating factors. She has noticed that she has been using her COPD inhalers more often especially in the past week. she completed her HD session today. removed 1.7 L As per chart review on 06/10/2018 she had OP urology procedure Cystoscopy, right ureteral stent exchange. She was admitted in April 2018 and was treated for HCAP, decubitus ulcer stage 3 and emphysematous pyelitis. On admission she was treated with vancomycin and Zosyn. While in the ED she was treated for H With vancomycin and Zosyn but subsequently developed swelling of the lips and mouth. Antibiotics were stopped she was given Pepcid Benadryl Decadron as well as a single dose of intramuscular epinephrine. Her symptoms resolved. she denies fever, chills, chest pain, palpitations, fall, Syncope, dysuria, N/V/ D, melena, hematochezia she is still making small amount of urine Past Med Surg Social Fam HX - Past Medical History Medical history: atrial fibrillation, CHF, COPD, dementia, diabetes, GI bleed, hyperlipidemia, hypertension, myocardial infarction, peripheral artery disease, renal disease, other Additional medical history: right ureteral obstruction Psychiatric history: anxiety, depression, schizophrenia, previous psychiatric hospitalization - Past Surgical History Surgical History: angioplasty/stent, appendectomy, cholecystectomy, coronary bypass (CABG), hysterectomy, knee replacement, other, IVC filter Additional surgical history: left arm fistulogram with covered stent placement left basilic vein 2016. Hysterectomy 1996. kidney stones 1996. appendix 1970. tonsils unsure date. double Bypass 1998. stents x5 unsure date. right wrist 2016 - Social History Smoking Status: Current every day smoker Smokeless Tobacco Status: No Alcohol use: none Drug use: none - Family History Father Family Member Ethnicity: Non- Living Status: Hx Family Cardiac Disorders: Yes Hx Family Respiratory Disorders: Yes Hx Family Cancer: Yes (Polycythemia) Hx Family Endocrine Disorder: Yes (DM) Mother Family Member Ethnicity: Non- Living Status: Still Living Hx Family Cardiac Disorders: Yes Hx Family Respiratory Disorders: Yes (asthma, COPD) Brother Adopted: No Family Member Ethnicity: Non- Living Status: Still Living Hx Family Cardiac Disorders: No Hx Family Respiratory Disorders: No Hx Family Cancer: No Hx Family GI Disorders: No Hx Family Endocrine Disorder: No Hx Family Neuromuscular Disorders: No Hx Family Neurologic Disorders: No Hx Family HEENT Disorders: No Hx Family Autoimmune Disorders: No Sister Adopted: No Family Member Ethnicity: Non- Living Status: Still Living Hx Family Cardiac Disorders: Yes Hx Family Respiratory Disorders: No Hx Family Cancer: No Hx Family GI Disorders: No Hx Family Endocrine Disorder: Yes Hx Family Neuromuscular Disorders: No Hx Family Neurologic Disorders: No Hx Family HEENT Disorders: No Hx Family Autoimmune Disorders: No Internal Medicine - H&P: Meds Colestipol HCl [Colestid] 1 gm PO BID 06/12/15 [History] Calcium Acetate [Phos-LO] 1,334 mg PO TIDWM 09/06/16 [History] ARIPiprazole [Abilify] 10 mg PO DAILY 09/13/17 [History] Aspirin Enteric Coated [Aspirin EC] 81 mg PO DAILY 09/13/17 [History] Budesonide/Formoterol 160/4.5 [Symbicort 160/4.5] 2 puff IH BIDR 09/13/17 [ History] Cholecalciferol (Vitamin D3) [Vitamin D3] 50,000 unit PO TH 09/13/17 [History] Sevelamer [Renvela] 800 mg PO DAILY 09/13/17 [History] Albuterol Neb [AccuNeb] 0.63 mg IH Q6H PRN 10/18/17 [History] Acetaminophen [Tylenol] 650 mg PO Q6HR PRN tablet 12/14/17 [Rx] amLODIPine [Norvasc] 5 mg PO DAILY 12/30/17 [History] Clopidogrel [Plavix] 75 mg PO DAILY 02/03/18 [History] Rosuvastatin Calcium [Crestor] 20 mg PO DAILY 02/27/18 [History] Amitriptyline [Elavil] 50 mg PO HS tablet 03/24/18 [Rx] metOLazone [Zaroxolyn] 5 mg PO DAILY 04/04/18 [History] Gabapentin [Neurontin] 100 mg PO TID 3 Days #9 capsule 04/08/18 [Rx] Metoclopramide [Reglan] 5 mg PO TIDAC 3 Days #9 ud.[id number] 04/08/18 [Rx] Sucralfate [Carafate] 1 gm PO QIDAC 3 Days #12 tablet 04/08/18 [Rx] Renal Vitamin [Renal Caps Softgel] 1 mg PO DAILY capsule 04/17/18 [Rx] Carvedilol 12.5 mg PO BID 04/28/18 [History] Darbepoetin [Aranesp] 60 mcg SQ TH 04/28/18 [History] Insulin DETEMIR [Levemir] 28 unit SQ HS 04/28/18 [History] Insulin LISPRO [HumaLOG] 2 - 10 units SQ TIDWM 04/28/18 [History] Lactobacillus Acidophilus/Fos [Acidophilus Probiotic Tablet] 1 tab PO DAILY [History] Omeprazole [PriLOSEC] 20 mg PO DAILY 04/28/18 [History] Ondansetron HCl [Zofran] 4 mg PO Q12H PRN 04/28/18 [History] OxyCODONE/APAP 10/325 [Percocet 10/325 MG] 1 tab PO Q6H PRN 3 Days #12 tablet [Rx] 3 Allergy/AdvReac Type Severity Reaction Status Date / Time piperacillin [From Zosyn] Allergy Anaphylaxis Verified 06/11/18 13:33 tazobactam [From Zosyn] Allergy Anaphylaxis Verified 06/11/18 13:33 All Systems PM: review of systems was performed and is negative for pertinent findings except as documented above in the HPI. - Constitutional Vitals: Temp Pulse Resp BP Pulse Ox 97.6 F 83 18 110/54 100 06/11/18 10:43 06/11/18 10:43 06/11/18 10:43 06/11/18 10:43 06/11/18 10:48 Exam: General: Patient is alert, oriented, no acute distress, morbidly obese Head: atraumatic, normocephalic, Eye: normal appearance, PERRL, no scleral icterus, no conjunctival injection ENT: mucous membranes moist, normal external ear exam Neck: normal inspection, trachea midline, full ROM, no carotid bruits Chest: normal inspection, symmetric chest rise, sternotomy scar Respiratory: Decreased breath sounds secondary to body habitus, crackles the posterior right lung field infrascapularly, no wheezes Cardiovascular: irregular . s1 and s2 No clicks, rubs, gallops, or murmors. Abdomen: Bowel sounds present normoactive x-4 quadrants. Abdomen is soft, nondistended. no Epigastric tenderness. No guarding or rebound. No organomegaly noted, obese musculoskeletal: Spontaneously moving all extremities. +3 edema of lower extremities , Skin: warm, dry, intact. stage 3 sacral ulcer, erythema of bilateral lower extremities up to knee, warm to touch, right lateral tibia area has an ulcer that is covered with bandage Neuro: Alert and oriented x4. Sensation light touch intact. Cranial nerves 2- 12 is intact. moves lower extremities on the bed, no focal deficit Psych: Patient's affect is normal Internal Med - H&P Results - Labs CBC & Chem 7: 06/11/18 10:49 06/11/18 10:49 Labs: Short CBC 06/11/18 Range/Units 10:49 WBC 6.1 (4.3-11.1) K/mcL Hgb 11.1 L (11.5-15.4) g/dL Hct 38.0 (35.3-44.9) % Plt Count 170 (140-400) K/mcL Neutrophils # 4.2 (1.6-8.9) K/mcL BMP 06/11/18 10:49 Sodium 135 L Potassium 3.5 Chloride 99 Carbon Dioxide 28 BUN 16 Creatinine 2.20 H Glucose 146 H Calcium 8.1 L Cardiac Enzymes 06/11/18 Range/Units 10:49 Troponin I < 0.03 (< 0.04) ng/mL - Impressions ITS Impressions Chest X-Ray 06/11/18 10:49 IMPRESSION: 1. The cardiac silhouette appears at the upper limits of normal for size. 2. Prominence of the pulmonary vasculature with likely bibasilar atelectasis. D/ / Scot Saleh MD / Scot Saleh MD Interpreting Provider: Scot Saleh MD Tibia/Fibula X-Ray 06/11/18 11:31 IMPRESSION: 1. Osteopenia without convincing acute osseous abnormality. 2. Diffuse soft tissue swelling. 3. No evidence of soft tissue emphysema. D/ / Scot Saleh MD / Scot Saleh MD Interpreting Provider: Scot Saleh MD - Assessment and plan (1) HAP (hospital-acquired pneumonia) Current Visit: Yes Status: Acute Assessment and plan: CXR showing prominent right fissure has history of multiple hospitalization along with dialysis ( high risk for HAP) started on vancomycin, metronidazole and azactam sputum cx blood cx urine antigen procalcitonin cxr 06/11/18: Median sternotomy wires are noted. The cardiac silhouette appears at the upper limits of normal for size. There is prominence of the pulmonary vasculature bilaterally. Likely bibasilar atelectasis. No convincing pleural effusion or pneumothorax. CT 04/07/18 1. Tree-in-bud configured opacities lower right lung and both lower lungs typical infectious process. 2. Bibasilar consolidative changes and small volume right pleural effusion. 3. Calcific atherosclerosis aorta and its branches including the coronary arteries. 4. Findings of anemia. 5. Mild cardiomegaly. (2) Allergic reaction caused by a drug Current Visit: Yes Status: Acute Assessment and plan: was given zosyn in the ED and developed ?tongue swelling as per ED documentations patient received zosyn through out her previous hospitalizations without adverse reactions s/p Pepcid Benadryl Decadron as well as a single dose of intramuscular epinephrine in the ED with complete resolution of her symptoms. will continue to monitor her Qualifiers: Encounter type: initial encounter Qualified Code(s): T78.40XA - Allergy, unspecified, initial encounter (3) ESRD (end stage renal disease) on dialysis Current Visit: Yes Status: Acute Assessment and plan: received Dialysis on 06/11/18- removed 1.7 L of fluids as per nursing check out next dialysis on Wednesday fluid restriction will continue phosphate binders, calcium and nephrocaps nephrology consult for HD (4) Acute and chronic respiratory failure Current Visit: No Status: Acute Assessment and plan: most likely secondary to HAP contnue with O2 via nasal cannula if she desaturates start her on bipap as long as secretions are minimal duo nebs Q4H symbicort no wheezing so will hold off of steroids Qualifiers: Respiratory failure complication: unspecified whether with hypoxia or hypercapnia Qualified Code(s): J96.20 - Acute and chronic respiratory failure , unspecified whether with hypoxia or hypercapnia (5) Cellulitis of right lower extremity Current Visit: No Status: Acute Assessment and plan: right calf has ulcer on vancomycin, metronidazole and azactam ESR, CRP ID consult will get DVT study of the lower extremity wound care consult Xray 1. Osteopenia without convincing acute osseous abnormality. 2. Diffuse soft tissue swelling. 3. No evidence of soft tissue emphysema. 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 Diabetes mellitus complication status: with kidney complications Diabetes mellitus complication detail: with chronic kidney disease Chronic kidney disease stage : on chronic dialysis Qualified Code(s): E11.22 - Type 2 diabetes mellitus with diabetic chronic kidney disease; N18.6 - End stage renal disease; Z79.4 - halfway (current) use of insulin; Z99.2 - Dependence on renal dialysis (7) Decubitus ulcer of sacral region, stage 3 Current Visit: No Status: Chronic Assessment and plan: wound care consult on vancomycin, metronidazole and azactam ESR, CRP, pro-calcitonin ID consulted (8) Atrial fibrillation Current Visit: Yes Status: Acute Assessment and plan: rate controlled continue BB not on OAC as she was found to be poor candidate in march 2018 - secondary to anemia and vaginal bleed she also has history of falls TTE Left Ventricle * LVEF 60%. * Normal LV chamber size, wall thickness and overall function. * Atypical septal motion consistent with post-operative status. * Mild segmental left ventricular systolic dysfunction. Right Ventricle * Normal right ventricular structure and function. Pericardium * The pericardium appears normal. Aorta * Normally sized aortic root. IVC * The IVC is not well evaluated. Qualifiers: Atrial fibrillation type: chronic Qualified Code(s): I48.2 - Chronic atrial fibrillation (9) Morbidly obese Current Visit: Yes Status: Acute Assessment and plan: nutrition consult (10) DVT prophylaxis Current Visit: Yes Status: Acute Assessment and plan: heparin Sc - Time Spent With Patient Total time spent is greater than 50% in coordination of care (as documented) at patient's floor/unit and/or counseling patient:
[2018-06-11] MEDS ORDERED: Dextrose Gel 15 GM/37.5 ML TUBE PO PRN ×2 (15:54)
[2018-06-11] MEDS ORDERED: D5% in Water 1,000 ML IVC PRN (15:54)
[2018-06-11] MEDS ORDERED: *HR* Dextrose 50 % in Water (Syg) 50 ML SYRINGE IVP PRN (15:54)
[2018-06-11] MEDS ORDERED: Cefepime HCl 1,000 MG in 0.9 % Sodium Chloride Mini Bag 100 ML IVPB SCH (16:00)
[2018-06-11] MEDS ORDERED: Insulin LISPRO 300 UNITS/3 ML VIAL SQ SCH ×2 (16:30→21:00)
[2018-06-11] MEDS: Calcium Acetate 667 MG CAPSULE PO SCH (17:20)
[2018-06-11] MEDS: Sucralfate 1 GM TABLET PO SCH ×2 (17:20→20:30)
[2018-06-11] MEDS: Insulin LISPRO 300 UNITS/3 ML VIAL SQ SCH (17:20)
[2018-06-11] MEDS: Metoclopramide 10 MG/10 ML UD.LIQ PO SCH (17:21)
[2018-06-11 17:30] LABS: Bilirubin,Urine Small (Negative); Blood,Urine Large (Negative); Clarity,Urine Turbid (Clear); Glucose,Urine (UA) Normal (Normal); Ketones,Urine Trace mg/dL (Negative); Leukocyte Esterase,Urine Large (Negative); Nitrite,Urine Negative (Negative); PH,Urine 5.5 pH Units (5.0-8.0); Protein,Urine >=1000 mg/dL (Neg-Trace); Specific Gravity,Urine 1.018 (1.010-1.025); Urobilinogen,Urine Normal (Normal)
[2018-06-11 17:32] LABS: Color,Urine Red (Yellow)
[2018-06-11] MEDS: Ipratropium/Albuterol Neb 3 ML IH SCH ×3 (18:33→23:16)
[2018-06-11] MEDS: Budesonide/Formoterol 160/4.5 1 PUFF INH IH SCH (19:36)
[2018-06-11] MEDS: Gabapentin 100 MG CAPSULE PO SCH (20:30)
[2018-06-11] MEDS: (Colestipol Hcl [Colestid] 1 GM) PO SCH (20:31)
[2018-06-11] MEDS: Insulin DETEMIR 100 UNIT/ML X5UNITS SQ SCH (20:31)
[2018-06-11] MEDS: *HR* Heparin 5,000 UNIT/ML VIAL SQ SCH (20:31)
[2018-06-11] MEDS: Acetaminophen 325 MG TABLET PO PRN (22:55)
[2018-06-11] MEDS: Aztreonam 500 MG in 0.9 % Sodium Chloride 50 ML IVPB SCH (22:58)
[2018-06-11] MEDS: MetroNIDAZOLE 500 MG/100 ML 500 MG/100 ML BAG IVPB SCH (23:42)
[2018-06-12] MEDS ORDERED: traMADol 50 MG TABLET PO ONE
[2018-06-12] MEDS: Insulin LISPRO 300 UNITS/3 ML VIAL SQ SCH ×5 (00:46→23:42)
[2018-06-12 03:39] LABS: Basophils % 0.3 %; Hematocrit 35.2 % (35.3-44.9); Hemoglobin 10.3 g/dL (11.5-15.4); Immature Granulocytes % 0.8 % (0-4); Lymphocytes # 0.7 K/mcL (0.6-4.6); Lymphocytes % 8.5 %; Mean Corpuscular HGB Conc 29.3 g/dL (31.6-35.5); Mean Corpuscular Hemoglobin 25.9 pg (28.0-33.3); Mean Corpuscular Volume 88.7 fL (83.0-100.0); Monocytes # 0.5 K/mcL (0.0-1.3); Monocytes % 5.8 %; Neutrophils # 7.3 K/mcL (1.6-8.9); Platelet Count 164 K/mcL (140-400); Red Blood Count 3.97 M/mcL (3.82-4.97); Red Cell Distribution Width 17.6 % (11.5-14.5); Segmented Neutrophils % 84.6 %
[2018-06-12] MEDS: Ipratropium/Albuterol Neb 3 ML IH SCH ×6 (03:42→23:40)
[2018-06-12 03:57] LABS: Chol/HDL Ratio 2.1 (0-4.9)
[2018-06-12] MEDS: Acetaminophen 325 MG TABLET PO PRN (04:56)
[2018-06-12] MEDS: *HR* Heparin 5,000 UNIT/ML VIAL SQ SCH ×3 (04:57→21:37)
[2018-06-12] MEDS: Budesonide/Formoterol 160/4.5 1 PUFF INH IH SCH ×2 (07:50→19:40)
[2018-06-12] MEDS: Aztreonam 500 MG in 0.9 % Sodium Chloride 50 ML IVPB SCH ×3 (08:07→15:07)
[2018-06-12] MEDS: Metoclopramide 10 MG/10 ML UD.LIQ PO SCH ×3 (08:07→17:00)
[2018-06-12] MEDS: Lactobacillus 1 EACH CAP.SPRINK PO SCH (08:08)
[2018-06-12] MEDS: amLODIPine 5 MG TABLET PO SCH (08:08)
[2018-06-12] MEDS: Gabapentin 100 MG CAPSULE PO SCH ×3 (08:08→21:36)
[2018-06-12] MEDS: Renal Vitamin 1 CAP CAPSULE PO SCH (08:08)
[2018-06-12] MEDS: (Colestipol Hcl [Colestid] 1 GM) PO SCH ×2 (08:08→21:37)
[2018-06-12] MEDS: Aspirin Enteric Coated 81 MG Tablet PO SCH (08:08)
[2018-06-12] MEDS: Sucralfate 1 GM TABLET PO SCH ×4 (08:08→21:35)
[2018-06-12] MEDS: Calcium Acetate 667 MG CAPSULE PO SCH ×3 (08:08→16:59)
[2018-06-12] MEDS: metOLazone 5 MG TABLET PO SCH (08:08)
[2018-06-12] MEDS: ARIPiprazole 10 MG TABLET PO SCH (08:08)
--- NOTE | 2018-06-12 08:31 | Event Note ---
Date of Encounter: 06/12/18 Time of Encounter: 08:30 Nephrology Chart Review Biochemically stable. Will reassess tomorrow (Wednesday). She has a hx of ESRD on HD TTS, so she may not need dialysis till Wednesday. Full consult to follow tomorrow. Thank you.
[2018-06-12] MEDS ORDERED: *HR* OxyCODONE Immed Rel 5 MG TABLET PO ONE (10:11)
[2018-06-12] MEDS ORDERED: *HR* OxyCODONE/APAP 5/325 TABLET PO ONE (10:21)
[2018-06-12 11:52] LABS: Estimated Average Glucose 160 mg/dl; Hemoglobin A1C 7.2 %
[2018-06-12] MEDS: MetroNIDAZOLE 500 MG/100 ML 500 MG/100 ML BAG IVPB SCH ×2 (13:19→15:50)
--- NOTE | 2018-06-12 15:09 | Anesthesia Procedures ---
Date of Encounter: 06/12/18 Time of Encounter: 15:09 Procedures: Anesthesia - Peripheral Line Arm R Consent obtained: verbal consent Skin cleansed in sterile fashion: Yes Size: Other (4Fr 10 cm micropuncture venous sheath) IV secured and dressing applied: Yes Patient tolerated procedure: well Additional comments: Asked by primary service to obtain iv access in this patient with difficult iv access. Patient known to us from surgical procedure tlast week.1 Attempts x2 left EJ catheterization, unable to advance cath into lumen. US guided 4 Fr 10 cm micropuncture venous sheath into right brachial vein. CHG prep, aircraft avionics technician, drape, 1% lido infiltration. Sterile occlusive dressing. Tolerated well.
--- NOTE | 2018-06-12 17:44 | Internal Med Progress Note ---
Hospitalist Progress Note - Encounter Date of Encounter: 06/12/18 Time of Encounter: 08:30 - Subjective Interval History: Patient was seen and examined at bedside, reports improvement in her respiratory status, denies cough, wheezing, chest pain or palpitations Denies fever, chills, N/V/D No overnight events, pain is controlled - Exam Vitals: Temp Pulse Resp BP Pulse Ox 98.1 F 91 18 134/78 96 06/12/18 15:09 06/12/18 15:06/12/18 16:10 06/12/18 15:06/12/18 16:10 Exam: General: Patient is alert, oriented, no acute distress, morbidly obese Head: atraumatic, normocephalic, Eye: normal appearance, PERRL, no scleral icterus, no conjunctival injection ENT: mucous membranes moist, normal external ear exam Neck: normal inspection, trachea midline, full ROM, no carotid bruits Chest: normal inspection, symmetric chest rise, sternotomy scar Respiratory: Decreased breath sounds secondary to body habitus, crackles the posterior right lung field infrascapularly, no wheezes Cardiovascular: irregular . s1 and s2 No clicks, rubs, gallops, or murmors. Abdomen: Bowel sounds present normoactive x-4 quadrants. Abdomen is soft, nondistended. no Epigastric tenderness. No guarding or rebound. No organomegaly noted, obese musculoskeletal: Spontaneously moving all extremities. +3 edema of lower extremities , Skin: warm, dry, intact. stage 3 sacral ulcer, erythema of bilateral lower extremities up to knee, warm to touch, right lateral tibia area has an ulcer that is covered with bandage Neuro: Alert and oriented x4. Sensation light touch intact. Cranial nerves 2- 12 is intact. moves lower extremities on the bed, no focal deficit Psych: Patient's affect is normal - Assessment and Plan (1) HAP (hospital-acquired pneumonia) Current Visit: Yes Status: Acute Assessment and Plan: CXR showing prominent right fissure fluid over load ( finished full HD session on admission date) vs PNA (has cough) has history of multiple hospitalization along with dialysis ( high risk for HAP) TTE 03/17/18- EF 60% started on ertapenem and linezolid - watch closely for serotonin syndrome sputum cx blood cx sent on 06/11/ urine antigens negative procalcitonin sent on 06/[address] chest ID on board cxr 06/11/18: Median sternotomy wires are noted. The cardiac silhouette appears at the upper limits of normal for size. There is prominence of the pulmonary vasculature bilaterally. Likely bibasilar atelectasis. No convincing pleural effusion or pneumothorax. CT 04/07/18 1. Tree-in-bud configured opacities lower right lung and both lower lungs typical infectious process. 2. Bibasilar consolidative changes and small volume right pleural effusion. 3. Calcific atherosclerosis aorta and its branches including the coronary arteries. 4. Findings of anemia. 5. Mild cardiomegaly. (2) Allergic reaction caused by a drug Current Visit: Yes Status: Resolved Assessment and Plan: was given zosyn in the ED and developed ?tongue swelling as per ED documentations patient received zosyn through out her previous hospitalizations without adverse reactions s/p Pepcid Benadryl Decadron as well as a single dose of intramuscular epinephrine in the ED with complete resolution of her symptoms. will continue to monitor her (3) ESRD (end stage renal disease) on dialysis Current Visit: Yes Status: Acute Assessment and Plan: received Dialysis on 06/11/18- removed 1.7 L of fluids as per nursing check out next dialysis on Wednesday fluid restriction Daily weights will continue phosphate binders, calcium and nephrocaps nephrology consulted for HD (4) Acute and chronic respiratory failure Current Visit: No Status: Acute Assessment and Plan: most likely secondary to HAP continue with O2 via nasal cannula if she desaturates start her on bipap as long as secretions are minimal duo nebs Q4H symbicort no wheezing so will hold off of steroids Antibiotic as above (5) Cellulitis of right lower extremity Current Visit: No Status: Acute Assessment and Plan: right calf has ulcer Contact precautions has history of VRE, MDRO E.coli on linezolid and ertapenem as of 06/12/18 ID on board will follow recommendations ESR 74, CRP 31 ID consulted spoke to topical gentamicin will get DVT study of the lower extremity wound care consult Xray 1. Osteopenia without convincing acute osseous abnormality. 2. Diffuse soft tissue swelling. 3. No evidence of soft tissue emphysema. (6) DMII (diabetes mellitus, type 2) Current Visit: No Status: Chronic Assessment and Plan: will continue home dose insulin detemir LDSSI Poct Q6H A1c (7) Decubitus ulcer of sacral region, stage 3 Current Visit: No Status: Chronic Assessment and Plan: wound care consult on linezolid and ertapenem elevated ESR and CRP (8) Atrial fibrillation Current Visit: Yes Status: Acute Assessment and Plan: rate controlled continue BB not on OAC as she was found to be poor candidate in march 2018 - secondary to anemia and vaginal bleed she also has history of falls TTE Left Ventricle * LVEF 60%. * Normal LV chamber size, wall thickness and overall function. * Atypical septal motion consistent with post-operative status. * Mild segmental left ventricular systolic dysfunction. Right Ventricle * Normal right ventricular structure and function. Pericardium * The pericardium appears normal. Aorta * Normally sized aortic root. IVC * The IVC is not well evaluated. (9) Morbidly obese Current Visit: Yes Status: Acute Assessment and Plan: nutrition consult (10) DVT prophylaxis Current Visit: Yes Status: Acute Assessment and Plan: heparin Sc - Time Spent with Patient Total time spent is greater than 50% in coordination of care (as documented) at patient's floor/unit and/or counseling patient: Internal Medicine: Result - Labs CBC & Chem 7: 06/12/18 03:04 06/12/18 03:04 Labs: Short CBC 06/12/18 Range/Units 03:04 WBC 8.6 (4.3-11.1) K/mcL Hgb 10.3 L (11.5-15.4) g/dL Hct 35.2 L (35.3-44.9) % Plt Count 164 (140-400) K/mcL Neutrophils # 7.3 (1.6-8.9) K/mcL BMP 06/12/18 03:04 Sodium 133 L Potassium 4.0 Chloride 100 Carbon Dioxide 26 BUN 22 Creatinine 2.63 H Glucose 310 H Calcium 8.0 L Consult Discharge Plan - Plan Referrals: Zoya Rogel MD [Primary Care Provider] - (2) Allergic reaction caused by a drug Qualifiers: Encounter type: initial encounter Qualified Code(s): T78.40XA - Allergy, unspecified, initial encounter (4) Acute and chronic respiratory failure Qualifiers: Respiratory failure complication: unspecified whether with hypoxia or hypercapnia Qualified Code(s): J96.20 - Acute and chronic respiratory failure, unspecified whether with hypoxia or hypercapnia (6) DMII (diabetes mellitus, type 2) Qualifiers: Diabetes mellitus chcf insulin use: with termite inspector use Diabetes mellitus complication status: with kidney complications Diabetes mellitus complication detail: with chronic kidney disease Chronic kidney disease stage: on chronic dialysis Qualified Code(s): E11.22 - Type 2 diabetes mellitus with diabetic chronic kidney disease; N18.6 - End stage renal disease; Z79.4 - termite treater (current) use of insulin; Z99.2 - Dependence on renal dialysis (8) Atrial fibrillation Qualifiers: Atrial fibrillation type: chronic Qualified Code(s): I48.2 - Chronic atrial fibrillation
[2018-06-12] MEDS: Gentamicin Oint 15 GM TUBE TP SCH (21:33)
[2018-06-12] MEDS: Insulin DETEMIR 100 UNIT/ML X5UNITS SQ SCH (21:34)
[2018-06-12] MEDS: *HR* OxyCODONE/APAP 5/325 TABLET PO PRN (21:36)
[2018-06-13] MEDS: Ipratropium/Albuterol Neb 3 ML IH SCH ×5 (04:04→20:24)
[2018-06-13] MEDS: Insulin LISPRO 300 UNITS/3 ML VIAL SQ SCH ×4 (05:08→23:58)
[2018-06-13] MEDS: *HR* OxyCODONE/APAP 5/325 TABLET PO PRN ×2 (05:28→20:07)
[2018-06-13] MEDS: *HR* Heparin 5,000 UNIT/ML VIAL SQ SCH ×3 (05:36→20:25)
[2018-06-13] MEDS: Budesonide/Formoterol 160/4.5 1 PUFF INH IH SCH ×2 (07:35→20:24)
[2018-06-13] MEDS: Lactobacillus 1 EACH CAP.SPRINK PO SCH (08:08)
[2018-06-13] MEDS: metOLazone 5 MG TABLET PO SCH (08:08)
[2018-06-13] MEDS: amLODIPine 5 MG TABLET PO SCH (08:08)
[2018-06-13] MEDS: Gabapentin 100 MG CAPSULE PO SCH ×3 (08:08→20:07)
[2018-06-13] MEDS: ARIPiprazole 10 MG TABLET PO SCH (08:08)
[2018-06-13] MEDS: Aspirin Enteric Coated 81 MG Tablet PO SCH (08:08)
[2018-06-13] MEDS: Calcium Acetate 667 MG CAPSULE PO SCH ×3 (08:08→17:02)
[2018-06-13] MEDS: Sucralfate 1 GM TABLET PO SCH ×4 (08:08→21:25)
[2018-06-13] MEDS: Renal Vitamin 1 CAP CAPSULE PO SCH (08:08)
[2018-06-13] MEDS: (Colestipol Hcl [Colestid] 1 GM) PO SCH ×2 (08:09→20:24)
[2018-06-13] MEDS: Gentamicin Oint 15 GM TUBE TP SCH ×2 (08:09→20:10)
[2018-06-13 08:12] LABS: Immature Granulocytes % 0.6 % (0-4)
[2018-06-13 08:13] LABS: Basophils # 0.1 K/mcL (0.0-0.2); Basophils % 0.7 %; Eosinophils # 0.2 K/mcL (0.0-0.6); Eosinophils % 2.1 %; Hematocrit 36.7 % (35.3-44.9); Hemoglobin 10.7 g/dL (11.5-15.4); Lymphocytes # 1.6 K/mcL (0.6-4.6); Lymphocytes % 16.2 %; Mean Corpuscular HGB Conc 29.2 g/dL (31.6-35.5); Mean Corpuscular Hemoglobin 26.1 pg (28.0-33.3); Mean Corpuscular Volume 89.5 fL (83.0-100.0); Monocytes # 0.8 K/mcL (0.0-1.3); Monocytes % 7.8 %; Platelet Count 180 K/mcL (140-400); Red Cell Distribution Width 17.4 % (11.5-14.5); Segmented Neutrophils % 72.6 %
[2018-06-13 08:22] LABS: Calcium 8.7 mg/dL (8.6-10.3); Potassium 4.2 mEq/L (3.5-5.1)
--- NOTE | 2018-06-13 08:38 | Nephrology Consult Note ---
Date of Encounter: 06/13/18 Time of Encounter: 08:33 Assessment and Plan (1) ESRD (end stage renal disease) on dialysis Current Visit: Yes Status: Chronic ESRD on HD TTS with next HD tentatively planned for tomorrow. Her listed Dry/Target weight is 128.5kg, and so I she is not far from her dry weight. Recommend renal dosing of renally cleared Rx, strict I/Os, daily weights. Will continue to follow with you. Her volume status appears hypervolemic and d/t her increased work of breathing, I will add an extra treatment today to help challenge her dry weight. (2) Anemia in chronic kidney disease, on chronic dialysis Current Visit: No Status: Chronic Goal Hgb is 10-11; will provide EPO as needed. (3) Hypertension Current Visit: No Status: Chronic Resume home rx Qualifiers: Hypertension type: essential hypertension Qualified Code(s): I10 - Essential (primary) hypertension (4) Hyponatremia Current Visit: No Status: Chronic She has chronic hyponatremia, and I recommend avoiding thiazide type diuretics, which I've stopped several times in the past for her. (5) HAP (hospital-acquired pneumonia) Current Visit: Yes Status: Acute Abx as per primary. History of Present Illness - Reason for Consult Consult date: 06/12/18 end stage renal disease Requesting physician: Ailyn Ramon - Chief Complaint ESRD - History of Present Illness Lynnette Riley is a very pleasant 63 y/o WF with a pmh of ESRD on HD TTS who presented with mutliple issues such as HCA and cellulitis. She last completed HD on Wednesday, she affirmed. Her primary evaporator is Dr. Rivers with the [facility]; she dialyzes at [facility] in [place], [place] , via a LUE AVG. I reviewed her outpt HD records that show her typical dialysis orders are as follows: TTS 225min, 128.5kg DW, Heparin 4k bolus with 1k / hr. She affirmed having several days onset of shortness of breath and redness to her legs. She did not affirm N/V/D, dysuria, CP, F/C, abd pain or problems with her dialysis access in the last few days. The pt also requested extra HD today. Past Med Surg Social Fam HX - Past Medical History Medical history: atrial fibrillation, CHF, COPD, dementia, diabetes, GI bleed, hyperlipidemia, hypertension, myocardial infarction, peripheral artery disease, renal disease, other Additional medical history: right ureteral obstruction Psychiatric history: anxiety, depression, schizophrenia, previous psychiatric hospitalization - Past Surgical History Surgical History: angioplasty/stent, appendectomy, cholecystectomy, coronary bypass (CABG), hysterectomy, knee replacement, other, IVC filter Additional surgical history: left arm fistulogram with covered stent placement left basilic vein 2016. Hysterectomy 1996. kidney stones 1996. appendix 1970. tonsils unsure date. double Bypass 1998. stents x5 unsure date. right wrist 2016 - Social History Smoking Status: Current every day smoker Smokeless Tobacco Status: No Alcohol use: none Drug use: none - Family History Father Family Member Ethnicity: Non- Living Status: Hx Family Cardiac Disorders: Yes Hx Family Respiratory Disorders: Yes Hx Family Cancer: Yes (Polycythemia) Hx Family Endocrine Disorder: Yes (DM) Mother Family Member Ethnicity: Non- Living Status: Still Living Hx Family Cardiac Disorders: Yes Hx Family Respiratory Disorders: Yes (asthma, COPD) Brother Adopted: No Family Member Ethnicity: Non- Living Status: Still Living Hx Family Cardiac Disorders: No Hx Family Respiratory Disorders: No Hx Family Cancer: No Hx Family GI Disorders: No Hx Family Endocrine Disorder: No Hx Family Neuromuscular Disorders: No Hx Family Neurologic Disorders: No Hx Family HEENT Disorders: No Hx Family Autoimmune Disorders: No Sister Adopted: No Family Member Ethnicity: Non- Living Status: Still Living Hx Family Cardiac Disorders: Yes Hx Family Respiratory Disorders: No Hx Family Cancer: No Hx Family GI Disorders: No Hx Family Endocrine Disorder: Yes Hx Family Neuromuscular Disorders: No Hx Family Neurologic Disorders: No Hx Family HEENT Disorders: No Hx Family Autoimmune Disorders: No Medications and Allergies Colestipol HCl [Colestid] 1 gm PO BID 06/12/15 [History] Calcium Acetate [Phos-LO] 1,334 mg PO TIDWM 09/06/16 [History] ARIPiprazole [Abilify] 10 mg PO DAILY 09/13/17 [History] Aspirin Enteric Coated [Aspirin EC] 81 mg PO DAILY 09/13/17 [History] Budesonide/Formoterol 160/4.5 [Symbicort 160/4.5] 2 puff IH BIDR 09/13/17 [ History] Cholecalciferol (Vitamin D3) [Vitamin D3] 50,000 unit PO TH 09/13/17 [History] Sevelamer [Renvela] 800 mg PO DAILY 09/13/17 [History] Albuterol Neb [AccuNeb] 0.63 mg IH Q6H PRN 10/18/17 [History] Acetaminophen [Tylenol] 650 mg PO Q6HR PRN tablet 12/14/17 [Rx] amLODIPine [Norvasc] 5 mg PO DAILY 12/30/17 [History] Clopidogrel [Plavix] 75 mg PO DAILY 02/03/18 [History] Rosuvastatin Calcium [Crestor] 20 mg PO DAILY 02/27/18 [History] Amitriptyline [Elavil] 50 mg PO HS tablet 03/24/18 [Rx] metOLazone [Zaroxolyn] 5 mg PO DAILY 04/04/18 [History] Gabapentin [Neurontin] 100 mg PO TID 3 Days #9 capsule 04/08/18 [Rx] Metoclopramide [Reglan] 5 mg PO TIDAC 3 Days #9 ud.liq 04/08/18 [Rx] Sucralfate [Carafate] 1 gm PO QIDAC 3 Days #12 tablet 04/08/18 [Rx] Renal Vitamin [Renal Caps Softgel] 1 mg PO DAILY capsule 04/17/18 [Rx] Carvedilol 12.5 mg PO BID 04/28/18 [History] Darbepoetin [Aranesp] 60 mcg SQ TH 04/28/18 [History] Insulin DETEMIR [Levemir] 28 unit SQ HS 04/28/18 [History] Insulin LISPRO [HumaLOG] 2 - 10 units SQ TIDWM 04/28/18 [History] Lactobacillus Acidophilus/Fos [Acidophilus Probiotic Tablet] 1 tab PO DAILY [History] Omeprazole [PriLOSEC] 20 mg PO DAILY 04/28/18 [History] Ondansetron HCl [Zofran] 4 mg PO Q12H PRN 04/28/18 [History] OxyCODONE/APAP 10/325 [Percocet 10/325 MG] 1 tab PO Q6H PRN 3 Days #12 tablet [Rx] 3 Allergy/AdvReac Type Severity Reaction Status Date / Time piperacillin [From Zosyn] Allergy Anaphylaxis Verified 06/11/18 13:33 tazobactam [From Zosyn] Allergy Anaphylaxis Verified 06/11/18 13:33 Review of Systems All Systems: reviewed and no additional remarkable complaints except as stated Exam - Vital Signs Vital signs: Initial Vital Signs Temp Pulse Resp BP Pulse Ox 97.6 F 83 18 110/54 100 06/11/18 10:43 06/11/18 10:43 06/11/18 10:43 06/11/18 10:43 06/11/18 10:43 Vital Signs - Last 8 Hours Temp Pulse Resp BP Pulse Ox 06/13/18 07:39 19 97 06/13/18 07:09 97.7 F 93 19 121/76 97 06/13/18 05:02 97.8 F 99 20 127/74 97 06/13/18 04:04 19 100 Intake and Output 06/12/18 06/13/18 06/13/18 23:59 07:59 15:59 Intake Total 760 / 760 480 / 480 30 / 30 Output Total 0 / 0 Balance 760 / 760 480 / 480 30 / 30 Intake: IV Fluids 100 / 100 INVanz 500 MG In 0.9 % Sodium 100 / 100 Chloride 100 ML @ 100 mls/hr IVPB 1900 [facility] Rx#:[id number] Oral 660 / 660 480 / 480 30 / 30 Output: Urine 0 / 0 Other: Meal crackers and peanut butter Percent of Meal Consumed 100% Stool Size Small Stool Consistency formed Stool Characteristics Normal for Patient Stool Color Brown # Voids 1 # Urine Diapers 1 # Bowel Movements 1 Weight 130 kg Blood Glucose* 217 137 - General Appearance General appearance: well-developed, well-nourished, appears started age, obese, moderate distress (with labored breathing as examined in her 2A room), chronically ill EENT: ATNC, PERRL, mucous membranes dry Neck: supple Respiratory: rales, course breath sounds Cardiology: edema, normal S1, normal S2 - Dialysis Access Dialysis Vascular Access: Arteriovenous Graft (Left UE) thrill: Yes bruit: Yes Gastrointestinal: normoactive bowel sounds, no tenderness, no guarding, no organomegaly, obese Integumentary: no rash, warm and dry Neurologic: no focal deficit, no asterixis, alert and oriented x3 Musculoskeletal: no cyanosis, no clubbing Psychiatric: mood/affect appropriate, cooperative Results - Lab Results 06/13/18 07:28 09 07:28 Most recent lab results Calcium 8.7 mg/dL (8.6-10.3) 06/13/18 07:28 I reviewed the labs, vitals, imaging, progress notes, med lists. I also reviewed the outpt [facility] records via the [employer] mobile [facility]ann. Consult Discharge Plan - Plan Referrals: Zoya Rogel MD [Primary Care Provider] -
[2018-06-13] MEDS ORDERED: 0.9 % Sodium Chloride 250 ML IVC PRN (09:29)
--- NOTE | 2018-06-13 10:03 | Internal Med Progress Note ---
Hospitalist Progress Note - Encounter Date of Encounter: 06/13/18 Time of Encounter: 08:30 - Subjective Interval History: Patient was seen and examined at bedside, reports improvement in her respiratory status, denies cough, wheezing, chest pain or palpitations Denies fever, chills, N/V/D No overnight events, pain is controlled - Exam Vitals: Temp Pulse Resp BP Pulse Ox 97.7 F 93 19 121/76 97 06/13/18 07:09 06/13/18 07:09 06/13/18 07:39 06/13/18 07:09 06/13/18 07:39 Exam: General: Patient is alert, oriented, no acute distress, morbidly obese Head: atraumatic, normocephalic, Eye: normal appearance, PERRL, no scleral icterus, no conjunctival injection ENT: mucous membranes moist, normal external ear exam Neck: normal inspection, trachea midline, full ROM, no carotid bruits Chest: normal inspection, symmetric chest rise, sternotomy scar Respiratory: Decreased breath sounds secondary to body habitus, crackles the posterior right lung field infrascapularly increased , no wheezes Cardiovascular: irregular . s1 and s2 No clicks, rubs, gallops, or murmors. Abdomen: Bowel sounds present normoactive x-4 quadrants. Abdomen is soft, nondistended. no Epigastric tenderness. No guarding or rebound. No organomegaly noted, obese musculoskeletal: Spontaneously moving all extremities. +3 edema of lower extremities , Skin: warm, dry, intact. stage 3 sacral ulcer, erythema of bilateral lower extremities up to knee, warm to touch, right lateral tibia area has an ulcer 2x2 draining pus / laceration that is about 6cm long that is covered with bandage Neuro: Alert and oriented x4. Sensation light touch intact. Cranial nerves 2- 12 is intact. moves lower extremities on the bed, no focal deficit Psych: Patient's affect is normal - Assessment and Plan (1) HAP (hospital-acquired pneumonia) Current Visit: Yes Status: Acute Assessment and Plan: CXR showing prominent right fissure fluid over load ( finished full HD session on admission date) vs PNA (has cough) has history of multiple hospitalization along with dialysis ( high risk for HAP) TTE 03/17/18- EF 60% started on ertapenem and linezolid - watch closely for serotonin syndrome - nurse notified sputum cx - pending nurse notified blood cx sent on 06/11/ urine antigens negative procalcitonin sent on 06/11 ID on board cxr 06/11/18: Median sternotomy wires are noted. The cardiac silhouette appears at the upper limits of normal for size. There is prominence of the pulmonary vasculature bilaterally. Likely bibasilar atelectasis. No convincing pleural effusion or pneumothorax. CT chest 06/12/18 nterval development of bilateral ground-glass PICC scratch the interval increase in size of left pleural effusion and persistent small right pleural effusion. Dependent lower lobe consolidation is present, greater on the left, atelectasis or pneumonia. The remaining aerated lungs show ground-glass opacity and interlobular septal thickening. Findings are suggestive of edema. Interval development of moderate perihepatic ascites and body wall edema. Skin thickening of the breasts also present, greater on left. Correlation is recommended. Gas within the upper right renal pelvis which may be related to a ureteral stent if applicable. Correlation for infectious process is recommended. (2) Acute and chronic respiratory failure Current Visit: No Status: Acute Assessment and Plan: most likely secondary to HAP and fluid overload continue with O2 via nasal cannula if she desaturates start her on bipap as long as secretions are minimal neohrology consulted - will dialyze her today 06/13/18 as she has increased crackles on exam and increase in edema duo nebs Q4H symbicort no wheezing so will hold off of steroids Antibiotic as above will consider pulmonology consult if her dyspnea does not improve post dialysis (3) Cellulitis of right lower extremity Current Visit: No Status: Acute Assessment and Plan: right calf has ulcer/ laceration with pus Contact precautions has history of VRE, MDRO E.coli infections on linezolid and ertapenem as of 06/12/18 ID on board will follow recommendations ESR 74, CRP 31 topical gentamicin BID DVT study if the lower extremity is negative will get Ct scan of the right lower extremity wound care consult Xray 1. Osteopenia without convincing acute osseous abnormality. 2. Diffuse soft tissue swelling. 3. No evidence of soft tissue emphysema. (4) Complicated UTI (urinary tract infection) Current Visit: Yes Status: Acute Assessment and Plan: has history of MDRO E.coli and VRE s/p Cystoscopy, right ureteral stent exchange on 06/10/18 on contact precautions will resend ucx 06/13/18 on linezolid and ertapenem (5) ESRD (end stage renal disease) on dialysis Current Visit: Yes Status: Chronic Assessment and Plan: received Dialysis on 06/11/18- removed 1.7 L of fluids as per nursing check out spoke to nephrology and she will get dialyzed today 06/13/18- she is volume overloaded on examination fluid restriction - nursing staff and patient are aware Daily weights will continue phosphate binders, calcium and nephrocaps po4 level in the AM nephrology on board (6) DMII (diabetes mellitus, type 2) Current Visit: No Status: Chronic Assessment and Plan: blood glucose is more controlled now home dose insulin detemir LDSSI Poct Q6H A1c 7.2 (7) Decubitus ulcer of sacral region, stage 3 Current Visit: No Status: Chronic Assessment and Plan: cultures from 04/04/18 grew E.COLi MDRO , proteus mirabilis and strep agalactiae wound care consult on linezolid and ertapenem elevated ESR and CRP (8) Atrial fibrillation Current Visit: Yes Status: Acute Assessment and Plan: rate controlled continue BB not on OAC as she was found to be poor candidate in march 2018 - secondary to anemia and vaginal bleed she also has history of falls TTE Left Ventricle * LVEF 60%. * Normal LV chamber size, wall thickness and overall function. * Atypical septal motion consistent with post-operative status. * Mild segmental left ventricular systolic dysfunction. Right Ventricle * Normal right ventricular structure and function. Pericardium * The pericardium appears normal. Aorta * Normally sized aortic root. IVC * The IVC is not well evaluated. (9) Morbidly obese Current Visit: Yes Status: Acute Assessment and Plan: nutrition consult (10) Allergic reaction caused by a drug Current Visit: Yes Status: Resolved Assessment and Plan: was given zosyn in the ED and developed ?tongue swelling as per ED documentations patient received zosyn through out her previous hospitalizations without adverse reactions s/p Pepcid Benadryl Decadron as well as a single dose of intramuscular epinephrine in the ED with complete resolution of her symptoms. will continue to monitor her (11) Goals of care, counseling/discussion Current Visit: Yes Status: Acute Assessment and Plan: had a long discussion with patient about her wishes and goals of care. she wishes to be DNR CCA DNI all questions answered and emotional support provided nurse witnessed (12) DVT prophylaxis Current Visit: Yes Status: Acute Assessment and Plan: heparin Sc - Time Spent with Patient Total time spent is greater than 50% in coordination of care (as documented) at patient's floor/unit and/or counseling patient: Internal Medicine: Result - Labs CBC & Chem 7: 06/13/18 07:28 06/13/18 07:28 Labs: Short CBC 06/13/18 Range/Units 07:28 WBC 9.6 (4.3-11.1) K/mcL Hgb 10.7 L (11.5-15.4) g/dL Hct 36.7 (35.3-44.9) % Plt Count 180 (140-400) K/mcL BMP 06/13/18 07:28 Sodium 133 L Potassium 4.2 Chloride 98 Carbon Dioxide 27 BUN 28 H Creatinine 3.37 H Glucose 155 H Calcium 8.7 - Impressions Impressions Chest CT 06/12/18 18:18 IMPRESSION: Interval development of bilateral ground-glass PICC scratch the interval increase in size of left pleural effusion and persistent small right pleural effusion. Dependent lower lobe consolidation is present, greater on the left, atelectasis or pneumonia. The remaining aerated lungs show ground-glass opacity and interlobular septal thickening. Findings are suggestive of edema. Interval development of moderate perihepatic ascites and body wall edema. Skin thickening of the breasts also present, greater on left. Correlation is recommended. Gas within the upper right renal pelvis which may be related to a ureteral stent if applicable. Correlation for infectious process is recommended. D/ / Tayler Hernández Cha, MD / Tayler Hernández Cha, MD Interpreting Provider: Tayler Hernández Cha, MD Consult Discharge Plan - Plan Referrals: Zoya Rogel MD [Primary Care Provider] - (2) Acute and chronic respiratory failure Qualifiers: Respiratory failure complication: unspecified whether with hypoxia or hypercapnia Qualified Code(s): J96.20 - Acute and chronic respiratory failure, unspecified whether with hypoxia or hypercapnia (6) DMII (diabetes mellitus, type 2) Qualifiers: Diabetes mellitus intermediate insulin use: with long term acute care registered nurse use Diabetes mellitus complication status: with kidney complications Diabetes mellitus complication detail: with chronic kidney disease Chronic kidney disease stage: on chronic dialysis Qualified Code(s): E11.22 - Type 2 diabetes mellitus with diabetic chronic kidney disease; N18.6 - End stage renal disease; 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
[2018-06-13 10:30] LABS: Platelet Estimate Normal (Normal)
[2018-06-13] MEDS: Insulin DETEMIR 100 UNIT/ML X5UNITS SQ SCH (21:26)
[2018-06-14] MEDS: Ipratropium/Albuterol Neb 3 ML IH SCH ×6 (00:07→19:58)
[2018-06-14] MEDS: *HR* Heparin 5,000 UNIT/ML VIAL SQ SCH ×2 (05:31→13:57)
[2018-06-14] MEDS: Insulin LISPRO 300 UNITS/3 ML VIAL SQ SCH ×4 (05:35→23:30)
[2018-06-14 06:21] LABS: Basophils % 0.9 %
[2018-06-14 06:29] LABS: Basophils # 0.1 K/mcL (0.0-0.2); Eosinophils # 0.2 K/mcL (0.0-0.6); Eosinophils % 2.4 %; Hematocrit 35.5 % (35.3-44.9); Hemoglobin 10.7 g/dL (11.5-15.4); Immature Granulocytes % 3.8 % (0-4); Immature Platelets 4.3 % (1.1-6.1); Lymphocytes # 1.7 K/mcL (0.6-4.6); Lymphocytes % 17.3 %; Mean Corpuscular HGB Conc 30.1 g/dL (31.6-35.5); Mean Corpuscular Hemoglobin 26.3 pg (28.0-33.3); Mean Corpuscular Volume 87.2 fL (83.0-100.0); Mean Platelet Volume 11.4 fL (9.4-12.4); Monocytes # 0.8 K/mcL (0.0-1.3); Monocytes % 7.9 %; Neutrophils # 6.6 K/mcL (1.6-8.9); Nucleated Red Blood Cells 0.2 /100 WBC (0); Platelet Count 146 K/mcL (140-400); Red Blood Count 4.07 M/mcL (3.82-4.97); Red Cell Distribution Width 17.2 % (11.5-14.5); Segmented Neutrophils % 67.7 %
[2018-06-14] MEDS ORDERED: 0.9 % Sodium Chloride 250 ML IVC PRN (06:31)
[2018-06-14 06:50] LABS: Hypochromasia Present (Not Present); Platelet Estimate Normal (Normal)
[2018-06-14 06:51] LABS: Anisocytosis 1+ (Not Present)
[2018-06-14] MEDS: (Colestipol Hcl [Colestid] 1 GM) PO SCH (07:52)
[2018-06-14] MEDS: Sucralfate 1 GM TABLET PO SCH ×4 (07:52→22:41)
[2018-06-14] MEDS: Calcium Acetate 667 MG CAPSULE PO SCH ×3 (07:52→17:07)
[2018-06-14] MEDS: Aspirin Enteric Coated 81 MG Tablet PO SCH (07:52)
[2018-06-14] MEDS: Lactobacillus 1 EACH CAP.SPRINK PO SCH (07:52)
[2018-06-14] MEDS: Gabapentin 100 MG CAPSULE PO SCH ×3 (07:52→22:41)
[2018-06-14] MEDS: ARIPiprazole 10 MG TABLET PO SCH (07:52)
[2018-06-14] MEDS: Gentamicin Oint 15 GM TUBE TP SCH ×2 (07:52→22:42)
[2018-06-14] MEDS: Renal Vitamin 1 CAP CAPSULE PO SCH (07:52)
[2018-06-14] MEDS: amLODIPine 5 MG TABLET PO SCH (07:52)
[2018-06-14] MEDS: *HR* OxyCODONE/APAP 5/325 TABLET PO PRN ×2 (07:58→14:29)
--- NOTE | 2018-06-14 10:03 | Nephrology Progress Note ---
Date of Encounter: 06/14/18 Time of Encounter: 10:00 - Assessment and Plan (1) ESRD (end stage renal disease) on dialysis Current Visit: Yes Status: Chronic ESRD on HD TTS. HD completed yesterday, already in progress today to help to challenge dry weight. Will plan on UF for tomorrow. Recommend renal dosing of renally cleared Rx, strict I/Os, daily weights. (2) Anemia in chronic kidney disease, on chronic dialysis Current Visit: No Status: Chronic Goal Hgb is 10-11. Hgb is 10.7 today, stable. (3) Hyponatremia Current Visit: No Status: Chronic She has chronic hyponatremia. BMP has been ordered, but not collected. Continue to avoid Thiazide diuretics. (4) Hypertension Current Visit: No Status: Chronic Resume home rx. BP is 134/71, stable. Qualifiers: Hypertension type: essential hypertension Qualified Code(s): I10 - Essential (primary) hypertension (5) HAP (hospital-acquired pneumonia) Current Visit: Yes Status: Acute Abx as per primary. Subjective Principal diagnosis: HERNÁN Interval history: Pt seen and examined during HD, tolerating well. Appears very drowsy. Objective - Vital Signs Vital signs: Vital Signs Temp Pulse Resp BP Pulse Ox 06/14/18 09:45 134/71 06/14/18 09:30 139/66 06/14/18 09:15 133/68 06/14/18 09:00 126/65 06/14/18 08:45 122/62 06/14/18 08:30 140/74 06/14/18 08:15 97.9 F 18 149/77 06/14/18 07:28 97.6 F 86 17 137/70 95 06/14/18 03:31 17 95 06/14/18 03:13 97.8 F 94 18 121/73 96 06/13/18 23:50 97.4 F L 97 17 125/74 96 06/13/18 20:27 17 96 06/13/18 20:26 95 06/13/18 19:48 98.3 F 97 16 121/70 95 06/13/18 15:52 98.4 F 93 18 127/73 99 06/13/18 15:46 20 98 06/13/18 14:25 125/66 06/13/18 14:10 134/63 06/13/18 13:55 127/61 06/13/18 13:40 133/71 06/13/18 13:25 119/67 06/13/18 13:10 127/66 06/13/18 12:55 110/56 06/13/18 12:40 97.7 F 20 125/67 06/13/18 12:25 97.5 F L 22 127/73 06/13/18 11:05 98.0 F 93 17 124/69 98 Intake and Output 06/13/18 06/14/18 06/14/18 23:59 07:59 15:59 Intake Total 460 / 460 100 / 100 630 / 630 Output Total 0 / 0 0 / 0 Balance 460 / 460 100 / 100 630 / 630 Intake: IV Fluids 400 / 400 INVanz 500 MG In 0.9 % Sodium 100 / 100 Chloride 100 ML @ 100 mls/hr IVPB 2100 [facility] Rx#:[id number] Zyvox Premix 600mg/300mL 600 mg 300 / 300 In 300 ml @ 150 mls/hr IVPB Q12HR [facility] Rx#:[id number] Oral 60 / 60 100 / 100 30 / 30 Intake, Rinseback and Flushes 600 / 600 Output: Urine 0 / 0 0 / 0 Other: Meal Dinner Percent of Meal Consumed 35% Stool Size Moderate Stool Consistency soft Stool Color Yellow Green # Voids 1 # Bowel Movements 1 Weight 134.1 kg Blood Glucose* 204 156 Hemodialysis Net Fluid Removed 1758 (mL) - General Appearance General appearance: Present: well-developed, well-nourished, obese EENT: Present: ATNC, hearing intact, vision intact Neck: Present: supple Cardiology: Present: edema (+1 tight pitting edema noted to bilat lower extremities.), normal S1, normal S2 Dialysis Vascular Access: Arteriovenous Fistula thrill: Yes bruit: Yes Gastrointestinal: Present: normoactive bowel sounds, no tenderness, no guarding Integumentary: Present: no rash, warm and dry, chronic venous stasis (bilat lower extremities.) Neurologic: Present: alert and oriented x3 Psychiatric: Present: mood/affect appropriate, cooperative - Lab 06/14/18 05:59 06/14/18 10:38 Most recent lab results Calcium 8.7 mg/dL (8.6-10.3) 09/03/18 07:28 Consult Discharge Plan - Plan Referrals: Zoya Rogel MD [Primary Care Provider] -
[2018-06-14] MEDS ORDERED: 0.9 % Sodium Chloride 1,000 ML ONE (10:40)
[2018-06-14] MEDS: Budesonide/Formoterol 160/4.5 1 PUFF INH IH SCH ×2 (11:07→19:58)
[2018-06-14 11:16] LABS: Calcium 8.4 mg/dL (8.6-10.3); Potassium 3.9 mEq/L (3.5-5.1)
--- NOTE | 2018-06-14 11:30 | Internal Med Progress Note ---
Hospitalist Progress Note - Encounter Date of Encounter: 06/14/18 Time of Encounter: 10:00 - Subjective Interval History: Patient was seen and examined at bedside reports that her SOB and cough are persistent when asked if her extremity swelling and SOB are better post dialysis she reports 'Not really" Denies fever, chills, N/V/D No overnight events, pain is controlled - Exam Vitals: Temp Pulse Resp BP Pulse Ox 97.9 F 86 18 149/73 95 06/14/18 08:15 06/14/18 07:28 06/14/18 08:15 06/14/18 10:30 06/14/18 07:28 Exam: General: Patient is alert, oriented, no acute distress, morbidly obese Head: atraumatic, normocephalic, Eye: normal appearance, PERRL, no scleral icterus, no conjunctival injection ENT: mucous membranes moist, normal external ear exam Neck: normal inspection, trachea midline, full ROM, no carotid bruits Chest: normal inspection, symmetric chest rise, sternotomy scar Respiratory: Decreased breath sounds secondary to body habitus, crackles the posterior right lung field infrascapularly increased , no wheezes Cardiovascular: irregular . s1 and s2 No clicks, rubs, gallops, or murmors. Abdomen: Bowel sounds present normoactive x-4 quadrants. Abdomen is soft, nondistended. no Epigastric tenderness. No guarding or rebound. No organomegaly noted, obese musculoskeletal: Spontaneously moving all extremities. +3 edema of lower extremities , Skin: warm, dry, intact. stage 3 sacral ulcer, erythema of bilateral lower extremities up to knee, warm to touch, right lateral tibia area has an ulcer 2x2 draining pus / laceration that is about 6cm long that is covered with bandage Neuro: Alert and oriented x4. Sensation light touch intact. Cranial nerves 2- 12 is intact. moves lower extremities on the bed, no focal deficit Psych: Patient's affect is normal - Assessment and Plan (1) HAP (hospital-acquired pneumonia) Current Visit: Yes Status: Acute Assessment and Plan: CXR showing prominent right fissure fluid over load ( finished full HD session on admission date) vs PNA (has cough) has history of multiple hospitalization along with dialysis ( high risk for HAP) TTE 03/17/18- EF 60% started on ertapenem and linezolid - watch closely for serotonin syndrome - nurse notified sputum cx - pending nurse notified blood cx sent on 06/11- prelim negative urine antigens negative procalcitonin sent on 06/11 ID on board cxr 06/11/18: Median sternotomy wires are noted. The cardiac silhouette appears at the upper limits of normal for size. There is prominence of the pulmonary vasculature bilaterally. Likely bibasilar atelectasis. No convincing pleural effusion or pneumothorax. CT chest 06/12/18 nterval development of bilateral ground-glass PICC scratch the interval increase in size of left pleural effusion and persistent small right pleural effusion. Dependent lower lobe consolidation is present, greater on the left, atelectasis or pneumonia. The remaining aerated lungs show ground-glass opacity and interlobular septal thickening. Findings are suggestive of edema. Interval development of moderate perihepatic ascites and body wall edema. Skin thickening of the breasts also present, greater on left. Correlation is recommended. Gas within the upper right renal pelvis which may be related to a ureteral stent if applicable. Correlation for infectious process is recommended. (2) Acute and chronic respiratory failure Current Visit: No Status: Acute Assessment and Plan: most likely secondary to HAP and fluid overload continue with O2 via nasal cannula if she desaturates start her on bipap as long as secretions are minimal neohrology consulted -received dialysis on 06/13 and 06/14 inorder to remove extra fluids duo nebs Q4H symbicort no wheezing so will hold off of steroids Antibiotic as above (3) Cellulitis of right lower extremity Current Visit: No Status: Acute Assessment and Plan: right calf has ulcer/ laceration with pus Contact precautions has history of VRE, MDRO E.coli infections on linezolid and ertapenem as of 06/12/18 ID on board will follow recommendations ESR 74, CRP 31 topical gentamicin BID DVT study if the lower extremity is negative will get Ct scan of the right lower extremity wound care consulted PT/OT Xray 1. Osteopenia without convincing acute osseous abnormality. 2. Diffuse soft tissue swelling. 3. No evidence of soft tissue emphysema. CT of the right LE: IMPRESSION: 1. Ulceration along the lateral soft tissues of the mid right lower extremity corresponding to given history. No organized drainable fluid collection identified to suggest abscess. 2. Diffuse subcutaneous edema and skin thickening. Correlate clinically for cellulitis. The partially imaged distal left lower extremity demonstrates similar findings. 3. No acute osseous abnormality. No CT evidence for osteomyelitis. 4. Osteopenia. 5. Mild degenerative changes of the visualized right midfoot and hindfoot articulations. 6. Atherosclerotic disease. (4) Complicated UTI (urinary tract infection) Current Visit: Yes Status: Acute Assessment and Plan: has history of MDRO E.coli and VRE s/p Cystoscopy, right ureteral stent exchange on 06/10/18 on contact precautions reordered ucx 06/13/18- nurse notified on linezolid and ertapenem (5) ESRD (end stage renal disease) on dialysis Current Visit: Yes Status: Chronic Assessment and Plan: received Dialysis on 06/11/18- removed 1.7 L of fluids as per nursing check out as OP S/P dialysis on 06/13 adn 06/14 due to fluid overload fluid restriction - nursing staff and patient are aware Daily weights will continue phosphate binders, calcium and nephrocaps po4 level ordered- pending nephrology on board (6) DMII (diabetes mellitus, type 2) Current Visit: No Status: Chronic Assessment and Plan: blood glucose is more controlled now home dose insulin detemir LDSSI Poct Q6H A1c 7.2 (7) Decubitus ulcer of sacral region, stage 3 Current Visit: No Status: Chronic Assessment and Plan: cultures from 04/04/18 grew E.COLi MDRO , proteus mirabilis and strep agalactiae wound care consult on linezolid and ertapenem elevated ESR and CRP (8) Atrial fibrillation Current Visit: Yes Status: Acute Assessment and Plan: rate controlled continue BB not on OAC as she was found to be poor candidate in march 2018 - secondary to anemia and vaginal bleed she also has history of falls TTE Left Ventricle * LVEF 60%. * Normal LV chamber size, wall thickness and overall function. * Atypical septal motion consistent with post-operative status. * Mild segmental left ventricular systolic dysfunction. Right Ventricle * Normal right ventricular structure and function. Pericardium * The pericardium appears normal. Aorta * Normally sized aortic root. IVC * The IVC is not well evaluated. (9) Morbidly obese Current Visit: Yes Status: Acute Assessment and Plan: nutrition consult (10) Allergic reaction caused by a drug Current Visit: Yes Status: Resolved Assessment and Plan: was given zosyn in the ED and developed ?tongue swelling as per ED documentations patient received zosyn through out her previous hospitalizations without adverse reactions s/p Pepcid Benadryl Decadron as well as a single dose of intramuscular epinephrine in the ED with complete resolution of her symptoms. will continue to monitor her (11) Goals of care, counseling/discussion Current Visit: Yes Status: Acute Assessment and Plan: had a long discussion with patient about her wishes and goals of care. she wishes to be DNR CCA DNI all questions answered and emotional support provided nurse witnessed SW and CM consult as she will most likely need heel cover splitter placement for her multiple co-morbidities (12) DVT prophylaxis Current Visit: Yes Status: Acute Assessment and Plan: heparin Sc - Time Spent with Patient Total time spent is greater than 50% in coordination of care (as documented) at patient's floor/unit and/or counseling patient: Internal Medicine: Result - Labs CBC & Chem 7: 06/14/18 05:59 06/14/18 10:38 Labs: Short CBC 06/14/18 Range/Units 05:59 WBC 9.7 (4.3-11.1) K/mcL Hgb 10.7 L (11.5-15.4) g/dL Hct 35.5 (35.3-44.9) % Plt Count 146 (140-400) K/mcL Neutrophils # 6.6 (1.6-8.9) K/mcL BMP 06/14/18 10:38 Sodium 135 L Potassium 3.9 Chloride 98 Carbon Dioxide 31 H BUN 19 Creatinine 2.29 H Glucose 120 H Calcium 8.4 L - Impressions Impressions Lower Extremity CT 06/13/18 09:59 IMPRESSION: 1. Ulceration along the lateral soft tissues of the mid right lower extremity corresponding to given history. No organized drainable fluid collection identified to suggest abscess. 2. Diffuse subcutaneous edema and skin thickening. Correlate clinically for cellulitis. The partially imaged distal left lower extremity demonstrates similar findings. 3. No acute osseous abnormality. No CT evidence for osteomyelitis. 4. Osteopenia. 5. Mild degenerative changes of the visualized right midfoot and hindfoot articulations. 6. Atherosclerotic disease. D/ / Kevin Cuellar MD / Kevin Cuellar MD Interpreting Provider: Kevin Cuellar MD Consult Discharge Plan - Plan Referrals: Zoya Rogel MD [Primary Care Provider] - (2) Acute and chronic respiratory failure Qualifiers: Respiratory failure complication: unspecified whether with hypoxia or hypercapnia Qualified Code(s): J96.20 - Acute and chronic respiratory failure, unspecified whether with hypoxia or hypercapnia (6) DMII (diabetes mellitus, type 2) Qualifiers: Diabetes mellitus heel cover splitter insulin use: with snf use Diabetes mellitus complication status: with kidney complications Diabetes mellitus complication detail: with chronic kidney disease Chronic kidney disease stage: on chronic dialysis Qualified Code(s): E11.22 - Type 2 diabetes mellitus with diabetic chronic kidney disease; N18.6 - End stage renal disease; 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
--- NOTE | 2018-06-14 11:43 | Infectious Disease Consult ---
Date of Encounter: 06/14/18 Time of Encounter: 11:30 Assessment and Plan (1) HCAP (healthcare-associated pneumonia) Status: Suspected Assessment and plan: History of hemodialysis and multiple hospitalizations. Recent hospitalization for healthcare-acquired pneumonia, treated with vancomycin and zosyn. Causative organism: unknown, but likely E.coli and Klebsiella as in previous sputum culture. ESR and CRP elevated at 74 and 31. Legionella and S. pneumoniae antigens are negative. Previous sputum culture 03/01 positive for E.coli ESBL and Klebsiella MDRO, sensitive to ertapenem. Blood culture 06/11 x2 sets are NGTD. Obtain sputum culture. Followup on cultures. CXR 06/11 showed prominence of pulmonary vasculature with likely bibasilar atelectasis. CT chest 06/12 showed lower lobe consolidation, atelectasis vs pneumonia. Small bilateral pleural effusions. Pulmonary edema. Moderate perihepatic ascites and body wall edema. Vancomycin, metronidazole, and azactam discontinued. Stop linezolid. Continue ertapenem. Monitor renal function and for renal toxicity and dose-adjust antibiotics. (2) Acute and chronic respiratory failure Status: Acute Assessment and plan: History of COPD on 3L home oxygen. Most likely due to HCAP. Oxygen saturation stable. DuoNeb and symbicort. Antibiotics as above. Qualifiers: Respiratory failure complication: unspecified whether with hypoxia or hypercapnia Qualified Code(s): J96.20 - Acute and chronic respiratory failure , unspecified whether with hypoxia or hypercapnia (3) Cellulitis of right lower extremity Status: Acute Assessment and plan: Causative organism: unknown Right tib/fib XR 06/11 showed diffuse soft tissue swelling. No acute osseous abnormality. CT RLE 06/13 showed ulcer and diffuse subcutaneous edema and skin thickening. No osteomyelitis. Blood culture 06/13 x4 sets are NGTD. Followup on blood cultures. Discontinue linezolid. Continue ertapenem. Topical gentamicin to wound. Monitor renal function and for renal toxicity and dose-adjust antibiotics. (4) Decubitus ulcer of sacral region, stage 3 Status: Chronic Assessment and plan: Previous wound culture 04/04/18 showed MDRO E.coli, Proteus, and Strep agalactiae. E.coli was andersen-resistant with exception of aminoglycosides. Proteus was andersen-resistant with exception of zosyn and ertapenem. Discontinue linezolid. Continue ertapenem. Topical gentamicin to wound. Monitor renal function and for renal toxicity and dose-adjust antibiotics. (5) Complicated UTI (urinary tract infection) Status: Acute Assessment and plan: History of VRE and MDRO E.coli on previous urine culture 04/04/18. Sensitive to ertapenem. Status post cystoscopy and right ureteral exchange 06/10/18. Urinalysis 06/11 showed red turbid urine with high protein, large blood, small bilirubin, negative nitrites, and large leukocyte esterase. Urine culture 06/11 showed >100,000 CFU of mixed organisms. CT chest 06/12 showed gas in right renal pelvis. Discontinue linezolid. Continue ertapenem. Monitor renal function and for renal toxicity and dose-adjust antibiotics. (6) Allergic reaction caused by a drug Status: Resolved Assessment and plan: Allergic reaction to zosyn with tongue and lip swelling in ED 06/11/18. Received pepcid, benadryl, decadron, and benadryl with complete resolution of symptoms. Qualifiers: Encounter type: initial encounter Qualified Code(s): T78.40XA - Allergy, unspecified, initial encounter (7) ESRD on hemodialysis Status: Chronic Assessment and plan: Dialysis Tue/Anabel/Sat. Left arm fistula. Nephrology consulted and following. (8) Anemia in chronic kidney disease, on chronic dialysis Status: Chronic Assessment and plan: Hb stable. On Aranesp. Goal 10-11. (9) Hyponatremia Status: Chronic Assessment and plan: Chronic hyponatremia. Avoid thiazide diuretics. (10) DMII (diabetes mellitus, type 2) Status: Chronic Assessment and plan: A1c 7.2. Home dose insulin detemir. Qualifiers: Diabetes mellitus fdc insulin use: with roasterman use Diabetes mellitus complication status: with kidney complications Diabetes mellitus complication detail: with chronic kidney disease Chronic kidney disease stage : on chronic dialysis Qualified Code(s): E11.22 - Type 2 diabetes mellitus with diabetic chronic kidney disease; N18.6 - End stage renal disease; Z79.4 - MCC (current) use of insulin; Z99.2 - Dependence on renal dialysis (11) Atrial fibrillation Status: Chronic Assessment and plan: Rate controlled with BB. Not candidate for anticoagulation due to anemia and vaginal bleeding. Qualifiers: Atrial fibrillation type: chronic Qualified Code(s): I48.2 - Chronic atrial fibrillation (12) HTN (hypertension) Status: Chronic Assessment and plan: On [facility]. Qualifiers: Hypertension type: essential hypertension Qualified Code(s): I10 - Essential (primary) hypertension Infectious Disease HPI - Data of Consult Requesting Physician: Ailyn Ramon MD Primary Care Provider: Zoya Rogel MD - Consult Narrative History of present illness: Ms. Riley is a 63 year old female with past medical history of ESRD on hemodialysis, diabetes, CHF, COPD on 3L home oxygen, A-fib, IL, PAD, HTN, HLD, dementia, anxiety, depression, and schizophrenia. The patient was admitted to the hospital on 06/11/18 for dyspnea, right leg infection, and observation after receiving epinephrine. We are consulted 06/14/18 for hospital-acquired pneumonia and right leg ulcer/cellulitis. Briefly, the patient is a 63 year old female with past medical history as stated above. Patient presented to the ED complaining of shortness of breath and cough. Also complained of pain and purulent drainage from laceration on right leg that was repaired 2 months ago. Recently finished course of Augmentin in the past week. CXR showed prominent pulmonary vasculature. Right tib/fib XR showed diffuse soft tissue swelling without acute osseous abnormality. Patient was given vancomycin and zosyn and had allergic reaction to zosyn with tongue and lip swelling. Antibiotics were stopped and was given Pepcid, Benadryl, decadron, and epinephrine with resolution of symptoms. On admission, vital signs were stable. There was no leukocytosis. Patient was started on vancomycin, metronidazole, and azactam for hospital-acquired pneumonia. Since admission, vital signs continue to remain stable. Legionella and S. pneumoniae antigens are negative. CT chest showed lower lobe consolidation, atelectasis vs pneumonia. CT RLE showed ulcer and diffuse subcutaneous edema and skin thickening. No osteomyelitis. Vancomycin, metronidazole, and azactam discontinued. Started on ertapenem and linezolid. ID consulted for further recommendation. Nephrology was consulted for help with hemodialysis. Wound care consulted for right leg cellulitis. During my exam today, the patient endorses the history as stated above. She is resting comfortably in bed watching TV while getting dialysis. No acute events overnight. Patient states feeling the same as when she was first admitted. Reports shortness of breath and cough are the same. States she feels need to cough something up but cant. Patient states she still feels some tongue swelling. Patient states swelling in lower extremities has worsened in past week. Reports eating "chicken noodle soup." States increased pain at sacral ulcer in past week. Reports pain at right leg ulcer. Reports some chest pain for past week. Reports constipation. Denies dysuria. Denies fever, chills. Denies abdominal pain, nausea/vomiting. CC: Ailyn Ramon MD Past Med Surg Social Fam HX - Past Medical History Medical history: atrial fibrillation, CHF, COPD, dementia, diabetes, GI bleed, hyperlipidemia, hypertension, myocardial infarction, peripheral artery disease, renal disease, other Additional medical history: right ureteral obstruction Psychiatric history: anxiety, depression, schizophrenia, previous psychiatric hospitalization - Past Surgical History Surgical History: angioplasty/stent, appendectomy, cholecystectomy, coronary bypass (CABG), hysterectomy, knee replacement, other, IVC filter Additional surgical history: left arm fistulogram with covered stent placement left basilic vein 2016. Hysterectomy 1996. kidney stones 1996. appendix 1970. tonsils unsure date. double Bypass 1998. stents x5 unsure date. right wrist 2016 - Social History Smoking Status: Current every day smoker Smokeless Tobacco Status: No Alcohol use: none Drug use: none - Family History Father Family Member Ethnicity: Non- Living Status: Hx Family Cardiac Disorders: Yes Hx Family Respiratory Disorders: Yes Hx Family Cancer: Yes (Polycythemia) Hx Family Endocrine Disorder: Yes (DM) Mother Family Member Ethnicity: Non- Living Status: Still Living Hx Family Cardiac Disorders: Yes Hx Family Respiratory Disorders: Yes (asthma, COPD) Brother Adopted: No Family Member Ethnicity: Non- Living Status: Still Living Hx Family Cardiac Disorders: No Hx Family Respiratory Disorders: No Hx Family Cancer: No Hx Family GI Disorders: No Hx Family Endocrine Disorder: No Hx Family Neuromuscular Disorders: No Hx Family Neurologic Disorders: No Hx Family HEENT Disorders: No Hx Family Autoimmune Disorders: No Sister Adopted: No Family Member Ethnicity: Non- Living Status: Still Living Hx Family Cardiac Disorders: Yes Hx Family Respiratory Disorders: No Hx Family Cancer: No Hx Family GI Disorders: No Hx Family Endocrine Disorder: Yes Hx Family Neuromuscular Disorders: No Hx Family Neurologic Disorders: No Hx Family HEENT Disorders: No Hx Family Autoimmune Disorders: No Infectious Disease-CN:Meds Colestipol HCl [Colestid] 1 gm PO BID 06/12/15 [History] Calcium Acetate [Phos-LO] 1,334 mg PO TIDWM 09/06/16 [History] ARIPiprazole [Abilify] 10 mg PO DAILY 09/13/17 [History] Aspirin Enteric Coated [Aspirin EC] 81 mg PO DAILY 09/13/17 [History] Budesonide/Formoterol 160/4.5 [Symbicort 160/4.5] 2 puff IH BIDR 09/13/17 [ History] Cholecalciferol (Vitamin D3) [Vitamin D3] 50,000 unit PO TH 09/13/17 [History] Sevelamer [Renvela] 800 mg PO DAILY 09/13/17 [History] Albuterol Neb [AccuNeb] 0.63 mg IH Q6H PRN 10/18/17 [History] Acetaminophen [Tylenol] 650 mg PO Q6HR PRN tablet 12/14/17 [Rx] amLODIPine [Norvasc] 5 mg PO DAILY 12/30/17 [History] Clopidogrel [Plavix] 75 mg PO DAILY 02/03/18 [History] Rosuvastatin Calcium [Crestor] 20 mg PO DAILY 02/27/18 [History] Amitriptyline [Elavil] 50 mg PO HS tablet 03/24/18 [Rx] metOLazone [Zaroxolyn] 5 mg PO DAILY 04/04/18 [History] Gabapentin [Neurontin] 100 mg PO TID 3 Days #9 capsule 04/08/18 [Rx] Metoclopramide [Reglan] 5 mg PO TIDAC 3 Days #9 ud.[id number] 04/08/18 [Rx] Sucralfate [Carafate] 1 gm PO QIDAC 3 Days #12 tablet 04/08/18 [Rx] Renal Vitamin [Renal Caps Softgel] 1 mg PO DAILY capsule 04/17/18 [Rx] Carvedilol 12.5 mg PO BID 04/28/18 [History] Darbepoetin [Aranesp] 60 mcg SQ TH 04/28/18 [History] Insulin DETEMIR [Levemir] 28 unit SQ HS 04/28/18 [History] Insulin LISPRO [HumaLOG] 2 - 10 units SQ TIDWM 04/28/18 [History] Lactobacillus Acidophilus/Fos [Acidophilus Probiotic Tablet] 1 tab PO DAILY [History] Omeprazole [PriLOSEC] 20 mg PO DAILY 04/28/18 [History] Ondansetron HCl [Zofran] 4 mg PO Q12H PRN 04/28/18 [History] OxyCODONE/APAP 10/325 [Percocet 10/325 MG] 1 tab PO Q6H PRN 3 Days #12 tablet [Rx] 3 Allergy/AdvReac Type Severity Reaction Status Date / Time piperacillin [From Zosyn] Allergy Anaphylaxis Verified 06/11/18 13:33 tazobactam [From Zosyn] Allergy Anaphylaxis Verified 06/11/18 13:33 Exam - Constitutional Vitals: Temp Pulse Resp BP Pulse Ox 97.9 F 86 18 149/73 95 06/14/18 08:15 06/14/18 07:28 06/14/18 08:15 06/14/18 10:30 06/14/18 07:28 General appearance: cooperative, morbidly obese, no acute distress, no febrile - Head Head exam: Present: atraumatic, normal inspection, normocephalic - Eye Eye exam: Present: EOMI, normal appearance, PERRL Pupils: Present: normal accommodation - ENT ENT exam: Present: mucous membranes moist - Neck Neck exam: Present: normal inspection - Respiratory Respiratory exam: Present: rhonchi (diffuse). Absent: rales, respiratory distress, stridor, wheezes, tachypnea - Cardiovascular Cardiovascular exam: Present: RRR, +S1, +S2 - GI/Abdominal GI/Abdominal exam: Present: normal bowel sounds, soft, tenderness (LLQ). Absent : distended - Extremities Exam Extremities exam: Present: pedal edema, tenderness. Absent: joint swelling, normal inspection (2+ pitting edema with tissue texture changes bilaterally, tender to palpation. Bandage on right lateral leg. ) - Neurological Exam Neurological exam: Present: alert, oriented X3, no focal deficits - Psychiatric Psychiatric exam: Present: flat affect - Skin Skin exam: Present: dry, intact, warm Infectious Disease CN: Results - Labs CBC & Chem 7: 06/14/18 05:59 06/14/18 10:38 Cultures: Cultures 06/11/18 16:55 Urine Culture - Final Urine,Clean Catch 06/11/18 16:55 Legionella Antigen - Final Urine,Clean Catch Streptococcus pneumoniae Antigen (M - Final Serology: Serology 06/11/18 Range/Units 16:55 Ur Specimen Adequacy See below A Urine Color Red A (Yellow) Urine Clarity Turbid A (Clear) Urine pH 5.5 (5.0-8.0) pH Units Ur Specific [place] 1.018 (1.010-1.025) Urine Protein >=1000 H (Neg-Trace) mg/dL Urine Glucose (UA) Normal (Normal) mg/dL Urine Ketones Trace H (Negative) mg/dL Urine Blood Large H (Negative) Urine Nitrite Negative (Negative) Urine Bilirubin Small H (Negative) Urine Urobilinogen Normal (Normal) mg/dL Ur Leukocyte Esterase Large H (Negative) Ur Culture Indicated? YES A (NO) Consult Discharge Plan - Plan Referrals: Zoya Rogel MD [Primary Care Provider] - - Attending Attestation This is an addendum to report dictated by resident physician. Please refer to resident note for full detail. Patient 63-year-old woman who is well-known to our service presented with shortness of breath and we were asked to evaluate the patient to make antibiotics recommendations. Patient is well-known to our service who has had multiple infections and decubitus ulcers and UTIs and pneumonias in the past. Previous cultures in March 2020 of this year grew Escherichia coli that was andersen resistant with exception of aminoglycosides and Proteus that was also andersen resistant with exception of Zosyn and ertapenem and group B strep from the wound. Patient also had had urine cultures twice in the past both of them grew VRE on different occasions. Patient has minimal urine output. Sputum back in February of this year grew ESBL Klebsiella pneumoniae the only susceptible to carb ertapenem s. Patient was started on empiric vancomycin and Zosyn admission and had almost an anaphylaxis like picture with swelling of the tongue and was given epinephrine, H1 and H2 vera and Benadryl. Assessment and plan: HCAP Cellulitis Decubitus ulcer Recommendations: Based on the culture results on previous cultures I am not sure what we are treat this patient with. I will continue meropenem to cover previous sputum cultures and wound cultures in the past. Patient has never had MRSA or VRE in the sputum or the wound. I will stop the Zyvox causes no evidence of VRE or MRSA. As for the decubitus ulcer I will recommend wound care and gentamicin topical. Duration of treatment 8-10 days. Dose adjust antibiotics based on creatinine clearance. Monitor labs and for drug toxicity.
[2018-06-14] MEDS ORDERED: Sennosides 8.6 MG TABLET PO PRN (12:30)
[2018-06-14 12:38] LABS: Albumin 2.8 g/dL (3.5-5.7); Calcium 8.4 mg/dL (8.6-10.3); Phosphorous 4.6 mg/dL (2.7-4.5)
[2018-06-14] MEDS ORDERED: Aminoglycoside Consult 1 EACH MC ONE (21:29)
--- NOTE | 2018-06-14 21:33 | Electrocardiograph Report ---
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
[2018-06-14] MEDS: Insulin DETEMIR 100 UNIT/ML X5UNITS SQ SCH (23:46)
[2018-06-15] MEDS: Ipratropium/Albuterol Neb 3 ML IH SCH ×7 (00:05→23:35)
[2018-06-15] MEDS: *HR* Heparin 5,000 UNIT/ML VIAL SQ SCH ×4 (00:45→22:18)
[2018-06-15 04:32] LABS: Red Cell Distribution Width 17.2 % (11.5-14.5)
[2018-06-15 04:33] LABS: Hematocrit 36.7 % (35.3-44.9); Hemoglobin 10.7 g/dL (11.5-15.4); Mean Corpuscular HGB Conc 29.2 g/dL (31.6-35.5); Mean Corpuscular Volume 89.3 fL (83.0-100.0); Mean Platelet Volume 10.6 fL (9.4-12.4); Platelet Count 151 K/mcL (140-400); Red Blood Count 4.11 M/mcL (3.82-4.97)
[2018-06-15 05:01] LABS: Calcium 8.5 mg/dL (8.6-10.3); Potassium 4.5 mEq/L (3.5-5.1)
[2018-06-15] MEDS ORDERED: 0.9 % Sodium Chloride 250 ML IVC PRN (07:56)
[2018-06-15] MEDS ORDERED: 0.9 % Sodium Chloride 1,000 ML PRIME SCH (08:00)
[2018-06-15] MEDS: Sucralfate 1 GM TABLET PO SCH ×4 (08:29→22:17)
[2018-06-15] MEDS: Calcium Acetate 667 MG CAPSULE PO SCH ×3 (08:29→17:07)
[2018-06-15] MEDS: Renal Vitamin 1 CAP CAPSULE PO SCH (08:29)
[2018-06-15] MEDS: Gabapentin 100 MG CAPSULE PO SCH ×3 (08:29→22:17)
[2018-06-15] MEDS: Lactobacillus 1 EACH CAP.SPRINK PO SCH (08:30)
[2018-06-15] MEDS: ARIPiprazole 10 MG TABLET PO SCH (08:30)
[2018-06-15] MEDS: amLODIPine 5 MG TABLET PO SCH (08:30)
[2018-06-15] MEDS: *HR* OxyCODONE/APAP 5/325 TABLET PO PRN ×2 (08:31→22:16)
[2018-06-15] MEDS: Aspirin Enteric Coated 81 MG Tablet PO SCH (08:31)
[2018-06-15] MEDS: Gentamicin Oint 15 GM TUBE TP SCH ×2 (08:31→23:25)
[2018-06-15] MEDS: Insulin LISPRO 300 UNITS/3 ML VIAL SQ SCH ×4 (08:32→22:17)
[2018-06-15] MEDS ORDERED: 0.9 % Sodium Chloride 1,000 ML ONE (08:57)
--- NOTE | 2018-06-15 09:14 | Infectious Disease Progress No ---
Date of Encounter: 06/15/18 Time of Encounter: 08:50 - Assessment and Plan (1) HCAP (healthcare-associated pneumonia) Current Visit: No Status: Suspected History of hemodialysis and multiple hospitalizations. Recent hospitalization for healthcare-acquired pneumonia, treated with vancomycin and zosyn. Causative organism: unknown, but likely E.coli and Klebsiella as in previous sputum culture. ESR and CRP elevated at 74 and 31. Legionella and S. pneumoniae antigens are negative. Previous sputum culture 03/01 positive for E.coli ESBL and Klebsiella MDRO. Sensitive to ertapenem. Blood culture 06/11 x2 sets are NGTD. Obtain sputum culture. Followup on cultures. CXR 06/11 showed prominence of pulmonary vasculature with likely bibasilar atelectasis. CT chest 06/12 showed lower lobe consolidation, atelectasis vs pneumonia. Small bilateral pleural effusions. Pulmonary edema. Moderate perihepatic ascites and body wall edema. Vancomycin, metronidazole, and azactam discontinued. Linezolid discontinued. Continue ertapenem. Monitor renal function and for renal toxicity and dose-adjust antibiotics. (2) Acute and chronic respiratory failure Current Visit: No Status: Acute History of COPD on 3L home oxygen. Most likely due to HCAP. Oxygen saturation stable. DuoNeb and symbicort. Antibiotics as above. Qualifiers: Respiratory failure complication: unspecified whether with hypoxia or hypercapnia Qualified Code(s): J96.20 - Acute and chronic respiratory failure , unspecified whether with hypoxia or hypercapnia (3) Cellulitis of right lower extremity Current Visit: No Status: Acute Causative organism: unknown Right tib/fib XR 06/11 showed diffuse soft tissue swelling. No acute osseous abnormality. CT RLE 06/13 showed ulcer and diffuse subcutaneous edema and skin thickening. No osteomyelitis. Blood culture 06/11 x2 sets are NGTD. Followup on blood cultures. Linezolid discontinued. Continue ertapenem. Monitor renal function and for renal toxicity and dose-adjust antibiotics. (4) Decubitus ulcer of sacral region, stage 3 Current Visit: No Status: Chronic Previous wound culture 04/04/18 showed MDRO E.coli, Proteus, and Strep agalactiae. E.coli was andersen-resistant with exception of aminoglycosides. Proteus was andersen-resistant with exception of zosyn and ertapenem. Continue ertapenem. Topical gentamicin to wound. Monitor renal function and for renal toxicity and dose-adjust antibiotics. (5) Complicated UTI (urinary tract infection) Current Visit: Yes Status: Acute History of VRE and MDRO E.coli on previous urine culture 04/04/18. Sensitive to ertapenem. Status post cystoscopy and right ureteral exchange 06/10/18. Urinalysis 06/11 showed red turbid urine with high protein, large blood, small bilirubin, negative nitrites, and large leukocyte esterase. Urine culture 06/11 showed >100,000 CFU of mixed organisms. CT chest 06/12 showed gas in right renal pelvis. Continue ertapenem. Monitor renal function and for renal toxicity and dose-adjust antibiotics. (6) Allergic reaction caused by a drug Current Visit: Yes Status: Resolved Allergic reaction to zosyn with tongue and lip swelling in ED 06/11/18. Received pepcid, benadryl, decadron, and benadryl with complete resolution of symptoms. Qualifiers: Encounter type: initial encounter Qualified Code(s): T78.40XA - Allergy, unspecified, initial encounter (7) ESRD on hemodialysis Current Visit: No Status: Chronic Dialysis Tue/Anabel/Sat. Left arm fistula. Nephrology consulted and following. (8) Anemia in chronic kidney disease, on chronic dialysis Current Visit: No Status: Chronic Hb stable. On Aranesp. Goal 10-11. (9) Hyponatremia Current Visit: No Status: Chronic Chronic hyponatremia. Avoid thiazide diuretics. (10) DMII (diabetes mellitus, type 2) Current Visit: No Status: Chronic A1c 7.2. Home dose insulin detemir. Qualifiers: Diabetes mellitus truck terminal manager insulin use: with truck terminal manager use Diabetes mellitus complication status: with kidney complications Diabetes mellitus complication detail: with chronic kidney disease Chronic kidney disease stage : on chronic dialysis Qualified Code(s): E11.22 - Type 2 diabetes mellitus with diabetic chronic kidney disease; N18.6 - End stage renal disease; Z79.4 - ad terminal makeup operator (current) use of insulin; Z99.2 - Dependence on renal dialysis (11) Atrial fibrillation Current Visit: No Status: Chronic Rate controlled with BB. Not candidate for anticoagulation due to anemia and vaginal bleeding. Qualifiers: Atrial fibrillation type: chronic Qualified Code(s): I48.2 - Chronic atrial fibrillation (12) HTN (hypertension) Current Visit: No Status: Chronic On norvasc. Qualifiers: Hypertension type: essential hypertension Qualified Code(s): I10 - Essential (primary) hypertension - Subjective Interval history: Patient seen and examined. She is resting comfortably in chair. No acute events overnight. Nurses states that facial swelling is improved from yesterday and leg swelling is unchanged. Patient states feeling the same as yesterday. Reports shortness of breath and cough are the same. Reported constipation yesterday and received stool softener. Denies constipation today. Denies dysuria. Denies fever, chills. Denies abdominal pain, nausea/vomiting. Infect Dis PN-Objective Data - Labs CBC & Chem 7: 06/16/18 04:03 06/16/18 04:03 Labs: Laboratory Results - last 24 hr 06/14/18 06/14/18 06/15/18 16:57 23:23 04:00 WBC 7.1 RBC 4.11 Hgb 10.7 L Hct 36.7 MCV 89.3 MCH 26.0 L MCHC 29.2 L RDW 17.2 H Plt Count 151 MPV 10.6 Sodium Potassium Chloride Carbon Dioxide BUN Creatinine Est GFR ( Amer) Est GFR (Non-Af Amer) BUN/Creatinine Ratio Glucose POC Glucose 152 H 164 H Calculated Osmolality Calcium 06/15/18 04:00 WBC RBC Hgb Hct MCV MCH MCHC RDW Plt Count MPV Sodium 134 L Potassium 4.5 Chloride 97 L Carbon Dioxide 32 H BUN 23 Creatinine 3.10 H Est GFR ( Amer) 18 L Est GFR (Non-Af Amer) 15 L BUN/Creatinine Ratio 7 Glucose 187 H POC Glucose Calculated Osmolality 287 Calcium 8.5 L Exam - Constitutional Vitals: Temp Pulse Resp BP Pulse Ox 98.6 F 109 16 136/80 100 06/15/18 07:39 06/15/18 07:39 06/15/18 07:39 06/15/18 07:39 06/15/18 07:39 General appearance: cooperative, morbidly obese, no acute distress, no febrile - Head Head exam: Present: atraumatic, normal inspection, normocephalic - Eye Eye exam: Present: EOMI, normal appearance. Absent: PERRL (Left pupil bigger than right by 1mm ) - ENT ENT exam: Present: mucous membranes moist - Neck Neck exam: Present: normal inspection - Respiratory Respiratory exam: Present: rhonchi (expiratory ). Absent: CTAB, rales, respiratory distress, wheezes, tachypnea - Cardiovascular Cardiovascular exam: Present: RRR, +S1, +S2 - GI/Abdominal GI/Abdominal exam: Present: distended (morbidly obese), normal bowel sounds, soft. Absent: tenderness - Extremities Exam Extremities exam: Present: pedal edema. Absent: joint swelling, normal inspection (2+ pitting edema with tissue texture changes bilaterally. Bandage over right lateral leg. ), tenderness - Neurological Exam Neurological exam: Present: alert, oriented X3, no focal deficits - Psychiatric Psychiatric exam: Present: flat affect - Skin Skin exam: Present: dry, intact, warm Consult Discharge Plan - Plan Referrals: Zoya Rogel MD [Primary Care Provider] - - Attending Attestation I examined this patient and my medical decision-making was reviewed with the Resident Physician. I agree with the documented findings, disposition and treatment plan as described except to the extent set forth below.
[2018-06-15] MEDS: Budesonide/Formoterol 160/4.5 1 PUFF INH IH SCH ×2 (09:47→19:50)
--- NOTE | 2018-06-15 11:19 | Nephrology Progress Note ---
Date of Encounter: 06/15/18 Time of Encounter: 11:28 - Assessment and Plan (1) ESRD (end stage renal disease) on dialysis Current Visit: Yes Status: Chronic ESRD on HD TTS. UF in progress for today. Recommend renal dosing of renally cleared Rx, strict I/Os, daily weights. (2) Anemia in chronic kidney disease, on chronic dialysis Current Visit: No Status: Chronic Goal Hgb is 10-11. Hgb is 10.7 today, stable. (3) Hyponatremia Current Visit: No Status: Chronic She has chronic hyponatremia. Continue to avoid Thiazide diuretics. NA is 134 today. (4) Hypertension Current Visit: No Status: Chronic Resume home rx. BP is 135/70, stable. Qualifiers: Hypertension type: essential hypertension Qualified Code(s): I10 - Essential (primary) hypertension (5) HAP (hospital-acquired pneumonia) Current Visit: Yes Status: Acute Abx as per primary. Subjective Principal diagnosis: HERNÁN Interval history: Pt seen and examined during HD, tolerating well. Patient is alert and oriented x 3. She states she is feeling better. Denies nausea/vomiting/diarrhea. Objective - Vital Signs Vital signs: Vital Signs Temp Pulse Resp BP Pulse Ox 06/15/18 10:55 135/70 06/15/18 10:40 153/76 06/15/18 10:25 151/87 06/15/18 10:10 124/74 06/15/18 09:55 157/82 06/15/18 09:40 159/93 06/15/18 09:25 146/78 06/15/18 09:10 97.0 F L 18 166/88 06/15/18 07:39 98.6 F 109 16 136/80 100 06/15/18 03:49 97.8 F 95 16 128/58 100 06/15/18 03:41 16 96 06/14/18 23:24 98.6 F 80 16 132/81 100 06/14/18 19:58 16 96 06/14/18 19:40 98.1 F 81 17 113/67 97 06/14/18 16:54 97.9 F 94 16 125/71 94 06/14/18 16:11 16 95 Intake and Output 06/14/18 06/15/18 06/15/18 23:59 07:59 15:59 Intake Total 550 / 550 700 / 700 Balance 550 / 550 700 / 700 Intake: IV Fluids 550 / 550 100 / 100 INVanz 500 MG In 0.9 % Sodium 100 / 100 Chloride 100 ML @ 100 mls/hr IVPB 2100 [facility] Rx#:[id number] Zyvox Premix 600mg/300mL 600 mg 300 / 300 In 300 ml @ 150 mls/hr IVPB Q12HR [facility] Rx#:[id number] Oral 0 / 0 Intake, Rinseback and Flushes 600 / 600 Other: Weight 128.6 kg Blood Glucose* 164 204 Hemodialysis Net Fluid Removed 4019 (mL) - General Appearance General appearance: Present: well-developed, well-nourished EENT: Present: ATNC, hearing intact, vision intact Neck: Present: supple Respiratory: Present: clear Cardiology: Present: edema (+1 pitting edema noted to bilat lower extremities.) , normal S1, normal S2 Dialysis Vascular Access: Arteriovenous Fistula thrill: Yes bruit: Yes Gastrointestinal: Present: normoactive bowel sounds, no tenderness, no guarding Integumentary: Present: no rash, warm and dry Neurologic: Present: alert and oriented x3 Psychiatric: Present: mood/affect appropriate, cooperative - Lab 06/15/18 04:00 06/15/18 04:00 Most recent lab results Calcium 8.5 mg/dL (8.6-10.3) L 06/15/18 04:00 Phosphorus 4.6 mg/dL (2.7-4.5) H 06/14/18 05:59 Consult Discharge Plan - Plan Referrals: Zoya Rogel MD [Primary Care Provider] -
--- NOTE | 2018-06-15 15:20 | Internal Med Progress Note ---
Hospitalist Progress Note - Encounter Date of Encounter: 06/15/18 Time of Encounter: 07:45 - Subjective Interval History: Patient was seen and examined at bedside reports that her SOB and cough are persistent but have improved LE is mildly improving Denies fever, chills, N/V/D No overnight events, pain is controlled - Exam Vitals: Temp Pulse Resp BP Pulse Ox 97.4 F L 109 18 142/82 100 06/15/18 12:28 06/15/18 07:39 06/15/18 12:28 06/15/18 12:28 06/15/18 07:39 Exam: General: Patient is alert, oriented, no acute distress, morbidly obese Head: atraumatic, normocephalic, Eye: normal appearance, PERRL, no scleral icterus, no conjunctival injection ENT: mucous membranes moist, normal external ear exam Neck: normal inspection, trachea midline, full ROM, no carotid bruits Chest: normal inspection, symmetric chest rise, sternotomy scar Respiratory: Decreased breath sounds secondary to body habitus, crackles the posterior right lung field infrascapularly increased , no wheezes Cardiovascular: irregular . s1 and s2 No clicks, rubs, gallops, or murmors. Abdomen: Bowel sounds present normoactive x-4 quadrants. Abdomen is soft, nondistended. no Epigastric tenderness. No guarding or rebound. No organomegaly noted, obese musculoskeletal: Spontaneously moving all extremities. +3 edema of lower extremities , Skin: warm, dry, intact. stage 3 sacral ulcer, erythema of bilateral lower extremities up to knee, warm to touch, right lateral tibia area has an ulcer 2x2 draining pus / laceration that is about 6cm long that is covered with bandage Neuro: Alert and oriented x4. Sensation light touch intact. Cranial nerves 2- 12 is intact. moves lower extremities on the bed, no focal deficit Psych: Patient's affect is normal - Assessment and Plan (1) HAP (hospital-acquired pneumonia) Current Visit: Yes Status: Acute Assessment and Plan: CXR showing prominent right fissure fluid over load ( finished full HD session on admission date) vs PNA (has cough) has history of multiple hospitalization along with dialysis ( high risk for HAP) TTE 03/17/18- EF 60% on ertapenem sputum cx - pending nurse notified blood cx sent on 06/11- prelim negative urine antigens negative procalcitonin sent on 06/11- 0.93 ID on board cxr 06/11/18: Median sternotomy wires are noted. The cardiac silhouette appears at the upper limits of normal for size. There is prominence of the pulmonary vasculature bilaterally. Likely bibasilar atelectasis. No convincing pleural effusion or pneumothorax. CT chest 06/12/18 nterval development of bilateral ground-glass PICC scratch the interval increase in size of left pleural effusion and persistent small right pleural effusion. Dependent lower lobe consolidation is present, greater on the left, atelectasis or pneumonia. The remaining aerated lungs show ground-glass opacity and interlobular septal thickening. Findings are suggestive of edema. Interval development of moderate perihepatic ascites and body wall edema. Skin thickening of the breasts also present, greater on left. Correlation is recommended. Gas within the upper right renal pelvis which may be related to a ureteral stent if applicable. Correlation for infectious process is recommended. (2) Acute and chronic respiratory failure Current Visit: No Status: Acute Assessment and Plan: most likely secondary to HAP and fluid overload continue with O2 via nasal cannula if she desaturates start her on bipap as long as secretions are minimal neohrology consulted -received dialysis on 06/13 and 06/14 inorder to remove extra fluids duo nebs Q4H symbicort no wheezing so will hold off of steroids Antibiotic as above (3) Cellulitis of right lower extremity Current Visit: No Status: Acute Assessment and Plan: right calf has ulcer/ laceration with pus Contact precautions has history of VRE, 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 Osteopenia without convincing acute osseous abnormality. 2. Diffuse soft tissue swelling. 3. No evidence of soft tissue emphysema. CT of the right LE: IMPRESSION: 1. Ulceration along the lateral soft tissues of the mid right lower extremity corresponding to given history. No organized drainable fluid collection identified to suggest abscess. 2. Diffuse subcutaneous edema and skin thickening. Correlate clinically for cellulitis. The partially imaged distal left lower extremity demonstrates similar findings. 3. No acute osseous abnormality. No CT evidence for osteomyelitis. 4. Osteopenia. 5. Mild degenerative changes of the visualized right midfoot and hindfoot articulations. 6. Atherosclerotic disease. (4) Complicated UTI (urinary tract infection) Current Visit: Yes Status: Acute Assessment and Plan: has history of MDRO E.coli and VRE s/p Cystoscopy, right ureteral stent exchange on 06/10/18 on contact precautions reordered ucx 06/13/18- nurse notified on ertapenem (5) ESRD (end stage renal disease) on dialysis Current Visit: Yes Status: Chronic Assessment and Plan: received Dialysis on 06/11/18- removed 1.7 L of fluids as per nursing check out as OP S/P dialysis on 06/13 and 06/14 due to fluid overload fluid restriction - nursing staff and patient are aware Daily weights will continue phosphate binders, calcium and nephrocaps Po4 4.6 nephrology on board (6) DMII (diabetes mellitus, type 2) Current Visit: No Status: Chronic Assessment and Plan: blood glucose is more controlled now home dose insulin detemir LDSSI Poct Q6H A1c 7.2 (7) Decubitus ulcer of sacral region, stage 3 Current Visit: No Status: Chronic Assessment and Plan: cultures from 04/04/18 grew E.COLi MDRO , proteus mirabilis and strep agalactiae wound care consult on ertapenem elevated ESR and CRP (8) Atrial fibrillation Current Visit: Yes Status: Acute Assessment and Plan: rate controlled continue BB not on OAC as she was found to be poor candidate in march 2018 - secondary to anemia and vaginal bleed she also has history of falls TTE Left Ventricle * LVEF 60%. * Normal LV chamber size, wall thickness and overall function. * Atypical septal motion consistent with post-operative status. * Mild segmental left ventricular systolic dysfunction. Right Ventricle * Normal right ventricular structure and function. Pericardium * The pericardium appears normal. Aorta * Normally sized aortic root. IVC * The IVC is not well evaluated. (9) Morbidly obese Current Visit: Yes Status: Acute Assessment and Plan: nutrition consulted (10) Goals of care, counseling/discussion Current Visit: Yes Status: Acute Assessment and Plan: had a long discussion with patient about her wishes and goals of care. 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 for her multiple co-morbidities (11) DVT prophylaxis Current Visit: Yes Status: Acute Assessment and Plan: heparin Sc (12) Allergic reaction caused by a drug Current Visit: Yes Status: Resolved - Time Spent with Patient Total time spent is greater than 50% in coordination of care (as documented) at patient's floor/unit and/or counseling patient: Internal Medicine: Result - Labs CBC & Chem 7: 06/15/18 04:00 06/15/18 04:00 Labs: Short CBC 06/15/18 Range/Units 04:00 WBC 7.1 (4.3-11.1) K/mcL Hgb 10.7 L (11.5-15.4) g/dL Hct 36.7 (35.3-44.9) % Plt Count 151 (140-400) K/mcL BMP 06/15/18 04:00 Sodium 134 L Potassium 4.5 Chloride 97 L Carbon Dioxide 32 H BUN 23 Creatinine 3.10 H Glucose 187 H Calcium 8.5 L Consult Discharge Plan - Plan Referrals: Zoya Rogel MD [Primary Care Provider] - (2) Acute and chronic respiratory failure Qualifiers: Respiratory failure complication: unspecified whether with hypoxia or hypercapnia Qualified Code(s): J96.20 - Acute and chronic respiratory failure, unspecified whether with hypoxia or hypercapnia (6) DMII (diabetes mellitus, type 2) Qualifiers: Diabetes mellitus 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 headgate operator insulin use: with [facility] use Diabetes mellitus complication status: with kidney complications Diabetes mellitus complication detail: with chronic kidney disease Chronic kidney disease stage: on chronic dialysis Qualified Code(s): E11.22 - Type 2 diabetes mellitus with diabetic chronic kidney disease; N18.6 - End stage renal disease; Z79.4 - retirement (current) use of insulin; Z99.2 - Dependence on renal dialysis (8) Atrial fibrillation Qualifiers: Atrial fibrillation type: chronic Qualified Code(s): I48.2 - Chronic atrial fibrillation (12) Allergic reaction caused by a drug Qualifiers: Encounter type: initial encounter Qualified Code(s): T78.40XA - Allergy, unspecified, initial encounter
[2018-06-15] MEDS: Insulin DETEMIR 100 UNIT/ML X5UNITS SQ SCH (22:17)
[2018-06-16] MEDS: Acetaminophen 325 MG TABLET PO PRN (00:27)
[2018-06-16] MEDS: Ipratropium/Albuterol Neb 3 ML IH SCH ×6 (03:47→23:32)
[2018-06-16] MEDS: *HR* OxyCODONE/APAP 5/325 TABLET PO PRN ×2 (04:28→13:35)
[2018-06-16 04:39] LABS: Hematocrit 35.6 % (35.3-44.9); Hemoglobin 10.4 g/dL (11.5-15.4); Mean Corpuscular HGB Conc 29.2 g/dL (31.6-35.5); Mean Corpuscular Hemoglobin 25.9 pg (28.0-33.3); Mean Corpuscular Volume 88.8 fL (83.0-100.0); Mean Platelet Volume 10.5 fL (9.4-12.4); Platelet Count 136 K/mcL (140-400); Red Blood Count 4.01 M/mcL (3.82-4.97); Red Cell Distribution Width 17.1 % (11.5-14.5)
[2018-06-16 04:54] LABS: Calcium 8.8 mg/dL (8.6-10.3); Potassium 4.5 mEq/L (3.5-5.1)
[2018-06-16] MEDS: *HR* Heparin 5,000 UNIT/ML VIAL SQ SCH ×3 (07:36→21:42)
[2018-06-16] MEDS: Budesonide/Formoterol 160/4.5 1 PUFF INH IH SCH ×2 (07:42→19:31)
[2018-06-16] MEDS ORDERED: 0.9 % Sodium Chloride 250 ML IVC PRN (08:06)
[2018-06-16] MEDS ORDERED: 0.9 % Sodium Chloride 1,000 ML PRIME SCH (08:15)
[2018-06-16] MEDS: Insulin LISPRO 300 UNITS/3 ML VIAL SQ SCH ×4 (08:30→21:30)
[2018-06-16] MEDS: ARIPiprazole 10 MG TABLET PO SCH (08:40)
[2018-06-16] MEDS: Aspirin Enteric Coated 81 MG Tablet PO SCH (08:40)
[2018-06-16] MEDS: Renal Vitamin 1 CAP CAPSULE PO SCH (08:40)
[2018-06-16] MEDS: Lactobacillus 1 EACH CAP.SPRINK PO SCH (08:40)
[2018-06-16] MEDS: Gabapentin 100 MG CAPSULE PO SCH ×3 (08:40→21:43)
[2018-06-16] MEDS: Calcium Acetate 667 MG CAPSULE PO SCH ×3 (08:40→17:59)
[2018-06-16] MEDS: Sucralfate 1 GM TABLET PO SCH ×4 (08:40→21:42)
[2018-06-16] MEDS: amLODIPine 5 MG TABLET PO SCH (08:41)
[2018-06-16] MEDS: Gentamicin Oint 15 GM TUBE TP SCH ×2 (08:43→21:43)
--- NOTE | 2018-06-16 09:32 | Infectious Disease Progress No ---
Date of Encounter: 06/16/18 Time of Encounter: 08:35 - Assessment and Plan (1) HCAP (healthcare-associated pneumonia) Current Visit: No Status: Suspected History of hemodialysis and multiple hospitalizations. Recent hospitalization for healthcare-acquired pneumonia, treated with vancomycin and zosyn. Causative organism: unknown, but likely E.coli and Klebsiella as in previous sputum culture. ESR and CRP elevated at 74 and 31. Procalcitonin elevated at 0.93. Legionella and S. pneumoniae antigens are negative. Previous sputum culture 03/01 positive for E.coli ESBL and Klebsiella MDRO. Sensitive to ertapenem. Blood culture 06/11 x2 sets are NGTD. Sputum culture collected 06/16 shows bacteria and many yeast. Followup on cultures. CXR 06/11 showed prominence of pulmonary vasculature with likely bibasilar atelectasis. CT chest 06/12 showed lower lobe consolidation, atelectasis vs pneumonia. Small bilateral pleural effusions. Pulmonary edema. Moderate perihepatic ascites and body wall edema. Vancomycin, metronidazole, and azactam discontinued. Linezolid discontinued. Day 5 of ertapenem. Continue for 2 more days to complete 7 day course. Monitor renal function and for renal toxicity and dose-adjust antibiotics. (2) Acute and chronic respiratory failure Current Visit: No Status: Acute History of COPD on 3L home oxygen. Most likely due to HCAP. Oxygen saturation stable. DuoNeb and symbicort. Antibiotics as above. Qualifiers: Respiratory failure complication: unspecified whether with hypoxia or hypercapnia Qualified Code(s): J96.20 - Acute and chronic respiratory failure , unspecified whether with hypoxia or hypercapnia (3) Cellulitis of right lower extremity Current Visit: No Status: Acute Causative organism: unknown Right tib/fib XR 06/11 showed diffuse soft tissue swelling. No acute osseous abnormality. CT RLE 06/13 showed ulcer and diffuse subcutaneous edema and skin thickening. No osteomyelitis. Blood culture 06/11 x2 sets are NGTD. Followup on blood cultures. Linezolid discontinued. Continue ertapenem. Topical gentamicin. Monitor renal function and for renal toxicity and dose-adjust antibiotics. (4) Decubitus ulcer of sacral region, stage 3 Current Visit: No Status: Chronic Previous wound culture 04/04/18 showed MDRO E.coli, Proteus, and Strep agalactiae. E.coli was andersen-resistant with exception of aminoglycosides. Proteus was andersen-resistant with exception of zosyn and ertapenem. Continue ertapenem. Topical gentamicin to wound. Monitor renal function and for renal toxicity and dose-adjust antibiotics. (5) Allergic reaction caused by a drug Current Visit: Yes Status: Resolved Allergic reaction to zosyn with tongue and lip swelling in ED 06/11/18. Received pepcid, benadryl, decadron, and benadryl with complete resolution of symptoms. Qualifiers: Encounter type: initial encounter Qualified Code(s): T78.40XA - Allergy, unspecified, initial encounter (6) ESRD on hemodialysis Current Visit: No Status: Chronic Dialysis Tue/Anabel/Sat. Left arm fistula. Nephrology consulted and following. (7) Anemia in chronic kidney disease, on chronic dialysis Current Visit: No Status: Chronic Hb stable. On Aranesp. Goal 10-11. (8) Hyponatremia Current Visit: No Status: Chronic Chronic hyponatremia. Avoid thiazide diuretics. (9) DMII (diabetes mellitus, type 2) Current Visit: No Status: Chronic A1c 7.2. Home dose insulin detemir. 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 Not candidate for anticoagulation due to anemia and vaginal bleeding. Qualifiers: Atrial fibrillation type: chronic Qualified Code(s): I48.2 - Chronic atrial fibrillation (11) HTN (hypertension) Current Visit: No Status: Chronic On norvasc. Qualifiers: Hypertension type: essential hypertension Qualified Code(s): I10 - Essential (primary) hypertension - Subjective Interval history: Patient seen and examined. She is resting comfortably in chair eating breakfast. No acute events overnight. Patient states feeling the same as yesterday. Reports shortness of breath and cough are the same. Leg swelling is the same. States she will get dialysis today to remove excess fluid. Denies dysuria. Denies fever, chills. Denies abdominal pain, nausea/vomiting. Infect Dis PN-Objective Data - Labs CBC & Chem 7: 06/16/18 04:03 06/16/18 04:03 Labs: Laboratory Results - last 24 hr 06/15/18 06/16/18 06/16/18 07:35 04:03 04:03 WBC 7.0 RBC 4.01 Hgb 10.4 L Hct 35.6 MCV 88.8 MCH 25.9 L MCHC 29.2 L RDW 17.1 H Plt Count 136 L MPV 10.5 Sodium 134 L Potassium 4.5 Chloride 98 Carbon Dioxide 30 H BUN 28 H Creatinine 3.27 H Est GFR ( Amer) 17 L Est GFR (Non-Af Amer) 14 L BUN/Creatinine Ratio 9 Glucose 103 POC Glucose 204 H Calculated Osmolality 284 Calcium 8.8 Cultures: Cultures 06/16/18 04:35 Sputum Culture - Preliminary Sputum Exam - Constitutional Vitals: Temp Pulse Resp BP Pulse Ox 97.6 F 80 18 138/65 94 06/16/18 06:38 06/16/18 06:38 06/16/18 07:42 06/16/18 06:38 06/16/18 07:42 General appearance: cooperative, no acute distress, obese, no febrile - Head Head exam: Present: atraumatic, normal inspection, normocephalic - Eye Eye exam: Present: EOMI, normal appearance, PERRL - ENT ENT exam: Present: mucous membranes moist - Neck Neck exam: Present: normal inspection - Respiratory Respiratory exam: Present: rhonchi (diffuse rhonchi with expiration and some with inspiration, worsened from yesterday ). Absent: rales, respiratory distress, stridor, wheezes, tachypnea - Cardiovascular Cardiovascular exam: Present: RRR, +S1, +S2 - GI/Abdominal GI/Abdominal exam: Present: distended (obese), normal bowel sounds, soft. Absent: tenderness - Extremities Exam Extremities exam: Present: pedal edema. Absent: joint swelling, normal inspection (2+ pitting edema with tissue texture changes bilaterally. Bandage on right lateral leg ), tenderness - Neurological Exam Neurological exam: Present: alert, oriented X3, no focal deficits - Psychiatric Psychiatric exam: Present: normal affect, normal mood - Skin Skin exam: Present: dry, intact, normal color, warm Consult Discharge Plan - Plan Referrals: Zoya Rogel MD [Primary Care Provider] - - Attending Attestation I examined this patient and my medical decision-making was reviewed with the Resident Physician. I agree with the documented findings, disposition and treatment plan as described except to the extent set forth below.
--- NOTE | 2018-06-16 09:55 | Nephrology Progress Note ---
Date of Encounter: 06/16/18 Time of Encounter: 09:53 - Assessment and Plan (1) ESRD (end stage renal disease) on dialysis Current Visit: Yes Status: Chronic ESRD on HD TTS. HD in progress for today. Recommend renal dosing of renally cleared Rx, strict I/Os, daily weights. (2) Anemia in chronic kidney disease, on chronic dialysis Current Visit: No Status: Chronic Goal Hgb is 10-11. Hgb is 10.4, stable. (3) Hyponatremia Current Visit: No Status: Chronic She has chronic hyponatremia. Continue to avoid Thiazide diuretics. NA is 134 today. (4) Hypertension Current Visit: No Status: Chronic Resume home rx. BP is stable 138/65. Qualifiers: Qualified Code(s): I10 - Essential (primary) hypertension (5) HAP (hospital-acquired pneumonia) Current Visit: Yes Status: Acute Abx as per primary. Subjective Principal diagnosis: HERNÁN Interval history: Pt seen and examined during HD, tolerating well. Patient is alert and oriented x 3. Denies nausea/vomiting/diarrhea. Objective - Vital Signs Vital signs: Vital Signs Temp Pulse Resp BP Pulse Ox 06/16/18 07:42 18 94 06/16/18 06:38 97.6 F 80 16 138/65 97 06/16/18 04:03 98.6 F 80 17 111/70 95 06/16/18 03:47 18 94 06/15/18 23:20 98.9 F 94 17 176/93 94 06/15/18 19:52 14 95 06/15/18 19:06 97.6 F 97 17 137/71 100 06/15/18 16:57 98.1 F 93 15 150/72 98 06/15/18 12:28 97.4 F L 18 142/82 06/15/18 11:10 137/76 06/15/18 10:55 135/70 06/15/18 10:40 153/76 06/15/18 10:25 151/87 06/15/18 10:10 124/74 06/15/18 09:55 157/82 Intake and Output 06/15/18 06/16/18 06/16/18 23:59 07:59 15:59 Intake Total 100 / 100 480 / 480 Balance 100 / 100 480 / 480 Intake: IV Fluids 100 / 100 INVanz 500 MG In 0.9 % Sodium 100 / 100 Chloride 100 ML @ 100 mls/hr IVPB 2200 [facility] Rx#:[id number] Oral 480 / 480 Other: Meal Breakfast Percent of Meal Consumed 90% Weight 96.4 kg Blood Glucose* 157 75 - General Appearance General appearance: Present: well-developed, well-nourished EENT: Present: ATNC, hearing intact, vision intact Neck: Present: supple Respiratory: Present: clear Cardiology: Present: edema (Trace bilat lower extremity edema), normal S1, normal S2 Dialysis Vascular Access: Arteriovenous Fistula thrill: Yes bruit: Yes Gastrointestinal: Present: normoactive bowel sounds, no tenderness, no guarding Integumentary: Present: no rash, warm and dry Neurologic: Present: alert and oriented x3 Psychiatric: Present: mood/affect appropriate, cooperative - Lab 06/16/18 04:03 06/16/18 04:03 Most recent lab results Calcium 8.8 mg/dL (8.6-10.3) 06/16/18 04:03 Phosphorus 4.6 mg/dL (2.7-4.5) H 06/14/18 05:59 Consult Discharge Plan - Plan Referrals: Zoya Rogel MD [Primary Care Provider] -
--- NOTE | 2018-06-16 14:11 | Internal Med Progress Note ---
Hospitalist Progress Note - Encounter Date of Encounter: 06/16/18 Time of Encounter: 08:30 - Subjective Interval History: Patient was seen and examined at bedside reports that her SOB and cough are persistent but have improved LE is mildly improving Denies fever, chills, N/V/D No overnight events, pain is controlled - Exam Vitals: Temp Pulse Resp BP Pulse Ox 97.1 F L 80 18 141/52 94 06/16/18 13:36 06/16/18 06:38 06/16/18 13:36 06/16/18 13:36 06/16/18 07:42 Exam: General: Patient is alert, oriented, no acute distress, morbidly obese Head: atraumatic, normocephalic, Eye: normal appearance, PERRL, no scleral icterus, no conjunctival injection ENT: mucous membranes moist, normal external ear exam Neck: normal inspection, trachea midline, full ROM, no carotid bruits Chest: normal inspection, symmetric chest rise, sternotomy scar Respiratory: Decreased breath sounds secondary to body habitus, crackles the posterior right lung field infrascapularly increased , no wheezes Cardiovascular: irregular . s1 and s2 No clicks, rubs, gallops, or murmors. Abdomen: Bowel sounds present normoactive x-4 quadrants. Abdomen is soft, nondistended. no Epigastric tenderness. No guarding or rebound. No organomegaly noted, obese musculoskeletal: Spontaneously moving all extremities. +3 edema of lower extremities , Skin: warm, dry, intact. stage 3 sacral ulcer, erythema of bilateral lower extremities up to knee, warm to touch, right lateral tibia area has an ulcer 2x2 draining pus / laceration that is about 6cm long that is covered with bandage Neuro: Alert and oriented x4. Sensation light touch intact. Cranial nerves 2- 12 is intact. moves lower extremities on the bed, no focal deficit Psych: Patient's affect is normal - Assessment and Plan (1) HAP (hospital-acquired pneumonia) Current Visit: Yes Status: Acute Assessment and Plan: CXR showing prominent right fissure fluid over load ( finished full HD session on admission date) vs PNA (has cough) has history of multiple hospitalization along with dialysis ( high risk for HAP) TTE 03/17/18- EF 60% on ertapenem sputum cx - prelim ( ve bacteria, yeast, <10 WBC and epithelial cells) blood cx sent on 06/11- prelim negative urine antigens negative procalcitonin sent on 06/11- 0.93 ID on board cxr 06/11/18: Median sternotomy wires are noted. The cardiac silhouette appears at the upper limits of normal for size. There is prominence of the pulmonary vasculature bilaterally. Likely bibasilar atelectasis. No convincing pleural effusion or pneumothorax. CT chest 06/12/18 nterval development of bilateral ground-glass PICC scratch the interval increase in size of left pleural effusion and persistent small right pleural effusion. Dependent lower lobe consolidation is present, greater on the left, atelectasis or pneumonia. The remaining aerated lungs show ground-glass opacity and interlobular septal thickening. Findings are suggestive of edema. Interval development of moderate perihepatic ascites and body wall edema. Skin thickening of the breasts also present, greater on left. Correlation is recommended. Gas within the upper right renal pelvis which may be related to a ureteral stent if applicable. Correlation for infectious process is recommended. (2) Acute and chronic respiratory failure Current Visit: No Status: Acute Assessment and Plan: most likely secondary to HAP and fluid overload continue with O2 via nasal cannula if she desaturates start her on bipap as long as secretions are minimal neohrology consulted -received dialysis on 06/13 and 06/14 inorder to remove extra fluids duo nebs Q4H symbicort no wheezing so will hold off of steroids Antibiotic as above (3) Cellulitis of right lower extremity Current Visit: No Status: Acute Assessment and Plan: right calf has ulcer/ laceration with pus Contact precautions has history of VRE, 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 Osteopenia without convincing acute osseous abnormality. 2. Diffuse soft tissue swelling. 3. No evidence of soft tissue emphysema. CT of the right LE: IMPRESSION: 1. Ulceration along the lateral soft tissues of the mid right lower extremity corresponding to given history. No organized drainable fluid collection identified to suggest abscess. 2. Diffuse subcutaneous edema and skin thickening. Correlate clinically for cellulitis. The partially imaged distal left lower extremity demonstrates similar findings. 3. No acute osseous abnormality. No CT evidence for osteomyelitis. 4. Osteopenia. 5. Mild degenerative changes of the visualized right midfoot and hindfoot articulations. 6. Atherosclerotic disease. (4) Complicated UTI (urinary tract infection) Current Visit: Yes Status: Acute Assessment and Plan: has history of MDRO E.coli and VRE s/p Cystoscopy, right ureteral stent exchange on 06/10/18 on contact precautions reordered ucx 06/13/18- nurse notified on ertapenem (5) ESRD (end stage renal disease) on dialysis Current Visit: Yes Status: Chronic Assessment and Plan: received Dialysis on 06/11/18- removed 1.7 L of fluids as per nursing check out as OP S/P dialysis on 06/13 and 06/14 due to fluid overload fluid restriction - nursing staff and patient are aware Daily weights will continue phosphate binders, calcium and nephrocaps Po4 4.6 nephrology on board (6) DMII (diabetes mellitus, type 2) Current Visit: No Status: Chronic Assessment and Plan: blood glucose is more controlled now home dose insulin detemir LDSSI Poct Q6H A1c 7.2 (7) Decubitus ulcer of sacral region, stage 3 Current Visit: No Status: Chronic Assessment and Plan: cultures from 04/04/18 grew E.COLi MDRO , proteus mirabilis and strep agalactiae wound care consult on ertapenem elevated ESR and CRP (8) Atrial fibrillation Current Visit: Yes Status: Acute Assessment and Plan: rate controlled continue BB not on OAC as she was found to be poor candidate in march 2018 - secondary to anemia and vaginal bleed she also has history of falls TTE Left Ventricle * LVEF 60%. * Normal LV chamber size, wall thickness and overall function. * Atypical septal motion consistent with post-operative status. * Mild segmental left ventricular systolic dysfunction. Right Ventricle * Normal right ventricular structure and function. Pericardium * The pericardium appears normal. Aorta * Normally sized aortic root. IVC * The IVC is not well evaluated. (9) Morbidly obese Current Visit: Yes Status: Acute Assessment and Plan: nutrition consulted (10) Goals of care, counseling/discussion Current Visit: Yes Status: Acute Assessment and Plan: had a long discussion with patient about her wishes and goals of care. she wishes to be DNR CCA DNI all questions answered and emotional support provided nurse witnessed SW and CM consult as she will most likely need intermediate manager placement for her multiple co-morbidities (11) DVT prophylaxis Current Visit: Yes Status: Acute Assessment and Plan: heparin Sc (12) Allergic reaction caused by a drug Current Visit: Yes Status: Resolved - Time Spent with Patient Total time spent is greater than 50% in coordination of care (as documented) at patient's floor/unit and/or counseling patient: Internal Medicine: Result - Labs CBC & Chem 7: 06/16/18 04:03 06/16/18 04:03 Labs: Short CBC 06/16/18 Range/Units 04:03 WBC 7.0 (4.3-11.1) K/mcL Hgb 10.4 L (11.5-15.4) g/dL Hct 35.6 (35.3-44.9) % Plt Count 136 L (140-400) K/mcL BMP 06/16/18 04:03 Sodium 134 L Potassium 4.5 Chloride 98 Carbon Dioxide 30 H BUN 28 H Creatinine 3.27 H Glucose 103 Calcium 8.8 Consult Discharge Plan - Plan Referrals: Zoya Rogel MD [Primary Care Provider] - (2) Acute and chronic respiratory failure Qualifiers: Respiratory failure complication: unspecified whether with hypoxia or hypercapnia Qualified Code(s): J96.20 - Acute and chronic respiratory failure, unspecified whether with hypoxia or hypercapnia (6) DMII (diabetes mellitus, type 2) Qualifiers: Diabetes mellitus intermediate manager insulin use: with mcc use Diabetes mellitus complication status: with kidney complications Diabetes mellitus complication detail: with chronic kidney disease Chronic kidney disease stage: on chronic dialysis Qualified Code(s): E11.22 - Type 2 diabetes mellitus with diabetic chronic kidney disease; N18.6 - End stage renal disease; Z79.4 - alf (current) use of insulin; Z99.2 - Dependence on renal dialysis (8) Atrial fibrillation Qualifiers: Atrial fibrillation type: chronic Qualified Code(s): I48.2 - Chronic atrial fibrillation (12) Allergic reaction caused by a drug Qualifiers: Encounter type: initial encounter Qualified Code(s): T78.40XA - Allergy, unspecified, initial encounter
[2018-06-16] MEDS: Insulin DETEMIR 100 UNIT/ML X5UNITS SQ SCH (21:42)
[2018-06-17] MEDS: Ipratropium/Albuterol Neb 3 ML IH SCH ×6 (03:44→23:16)
[2018-06-17 04:38] LABS: Hematocrit 36.5 % (35.3-44.9); Hemoglobin 10.6 g/dL (11.5-15.4); Mean Corpuscular Volume 89.7 fL (83.0-100.0); Mean Platelet Volume 10.8 fL (9.4-12.4); Platelet Count 138 K/mcL (140-400); Red Blood Count 4.07 M/mcL (3.82-4.97); Red Cell Distribution Width 16.9 % (11.5-14.5)
[2018-06-17 04:58] LABS: Calcium 8.9 mg/dL (8.6-10.3); Potassium 4.5 mEq/L (3.5-5.1)
[2018-06-17] MEDS: *HR* Heparin 5,000 UNIT/ML VIAL SQ SCH ×3 (06:29→22:08)
[2018-06-17] MEDS: Insulin LISPRO 300 UNITS/3 ML VIAL SQ SCH ×4 (09:20→22:22)
[2018-06-17] MEDS: Lactobacillus 1 EACH CAP.SPRINK PO SCH (09:20)
[2018-06-17] MEDS: Sucralfate 1 GM TABLET PO SCH ×4 (09:20→22:22)
[2018-06-17] MEDS: Aspirin Enteric Coated 81 MG Tablet PO SCH (09:20)
[2018-06-17] MEDS: Renal Vitamin 1 CAP CAPSULE PO SCH (09:20)
[2018-06-17] MEDS: Gabapentin 100 MG CAPSULE PO SCH ×3 (09:20→22:22)
[2018-06-17] MEDS: Calcium Acetate 667 MG CAPSULE PO SCH ×3 (09:20→17:40)
[2018-06-17] MEDS: amLODIPine 5 MG TABLET PO SCH (09:20)
--- NOTE | 2018-06-17 09:37 | Infectious Disease Progress No ---
Date of Encounter: 06/17/18 Time of Encounter: 08:30 - Assessment and Plan (1) HCAP (healthcare-associated pneumonia) Current Visit: No Status: Suspected History of hemodialysis and multiple hospitalizations. Recent hospitalization for healthcare-acquired pneumonia, treated with vancomycin and zosyn. Causative organism: unknown ESR and CRP elevated at 74 and 31. Procalcitonin elevated at 0.93. Legionella and S. pneumoniae antigens are negative. Previous sputum culture 03/01 positive for E.coli ESBL and Klebsiella MDRO. Sensitive to ertapenem. Blood culture 06/11 x2 sets are negative. Sputum culture collected 06/16 shows bacteria and many yeast. CXR 06/11 showed prominence of pulmonary vasculature with likely bibasilar atelectasis. CT chest 06/12 showed lower lobe consolidation, atelectasis vs pneumonia. Small bilateral pleural effusions. Pulmonary edema. Moderate perihepatic ascites and body wall edema. Vancomycin, metronidazole, and azactam discontinued. Linezolid discontinued. Day 6 of ertapenem. Continue for 1 more day to complete 7 day course. Monitor renal function and for renal toxicity and dose-adjust antibiotics. (2) Acute and chronic respiratory failure Current Visit: No Status: Acute History of COPD on 3L home oxygen. Most likely due to HCAP. Oxygen saturation stable. DuoNeb and symbicort. Antibiotics as above. Qualifiers: Qualified Code(s): J96.20 - Acute and chronic respiratory failure, unspecified whether with hypoxia or hypercapnia (3) Cellulitis of right lower extremity Current Visit: No Status: Acute Causative organism: unknown Right tib/fib XR 06/11 showed diffuse soft tissue swelling. No acute osseous abnormality. CT RLE 06/13 showed ulcer and diffuse subcutaneous edema and skin thickening. No osteomyelitis. Blood culture 06/11 x2 sets are NGTD. Followup on blood cultures. Linezolid discontinued. Continue ertapenem. Topical gentamicin. Monitor renal function and for renal toxicity and dose-adjust antibiotics. (4) Decubitus ulcer of sacral region, stage 3 Current Visit: No Status: Chronic Previous wound culture 04/04/18 showed MDRO E.coli, Proteus, and Strep agalactiae. E.coli was andersen-resistant with exception of aminoglycosides. Proteus was andersen-resistant with exception of zosyn and ertapenem. Continue ertapenem. Topical gentamicin to wound. Monitor renal function and for renal toxicity and dose-adjust antibiotics. (5) Allergic reaction caused by a drug Current Visit: Yes Status: Resolved Allergic reaction to zosyn with tongue and lip swelling in ED 06/11/18. Received pepcid, benadryl, decadron, and benadryl with complete resolution of symptoms. Qualifiers: Qualified Code(s): T78.40XA - Allergy, unspecified, initial encounter (6) ESRD on hemodialysis Current Visit: No Status: Chronic Dialysis Tue/Anabel/Sat. Left arm fistula. Nephrology consulted and following. (7) Anemia in chronic kidney disease, on chronic dialysis Current Visit: No Status: Chronic Hb stable. On Aranesp. Goal 10-11. (8) Hyponatremia Current Visit: No Status: Chronic Chronic hyponatremia. Avoid thiazide diuretics. (9) DMII (diabetes mellitus, type 2) Current Visit: No Status: Chronic A1c 7.2. Home dose insulin detemir. 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 Not candidate for anticoagulation due to anemia and vaginal bleeding. Qualifiers: Qualified Code(s): I48.2 - Chronic atrial fibrillation (11) HTN (hypertension) Current Visit: No Status: Chronic On norvasc. Qualifiers: Qualified Code(s): I10 - Essential (primary) hypertension - Subjective Interval history: Patient seen and examined. She is resting comfortably in chair eating breakfast. No acute events overnight. Patient states feeling pretty good." Reports shortness of breath is better and cough is the same. Denies chest pain. Denies dysuria. Denies fever, chills. Denies abdominal pain, nausea/vomiting. Denies diarrhea, constipation. Infect Dis PN-Objective Data - Labs CBC & Chem 7: 06/17/18 04:25 06/17/18 04:25 Labs: Laboratory Results - last 24 hr 06/15/18 06/15/18 06/15/18 11:03 17:00 18:49 WBC RBC Hgb Hct MCV MCH MCHC RDW Plt Count MPV Sodium Potassium Chloride Carbon Dioxide BUN Creatinine Est GFR ( Amer) Est GFR (Non-Af Amer) BUN/Creatinine Ratio Glucose POC Glucose 192 H 143 H 157 H Calculated Osmolality Calcium 06/16/18 06/16/18 06/16/18 06:46 11:08 15:37 WBC RBC Hgb Hct MCV MCH MCHC RDW Plt Count MPV Sodium Potassium Chloride Carbon Dioxide BUN Creatinine Est GFR ( Amer) Est GFR (Non-Af Amer) BUN/Creatinine Ratio Glucose POC Glucose 75 109 H 180 H Calculated Osmolality Calcium 06/17/18 06/17/18 04:25 04:25 WBC 7.7 RBC 4.07 Hgb 10.6 L Hct 36.5 MCV 89.7 MCH 26.0 L MCHC 29.0 L RDW 16.9 H Plt Count 138 L MPV 10.8 Sodium 132 L Potassium 4.5 Chloride 97 L Carbon Dioxide 32 H BUN 20 Creatinine 2.96 H Est GFR ( Amer) 19 L Est GFR (Non-Af Amer) 16 L BUN/Creatinine Ratio 7 Glucose 207 H POC Glucose Calculated Osmolality 283 Calcium 8.9 Cultures: Cultures 06/16/18 04:35 Sputum Culture - Preliminary Sputum Exam - Constitutional Vitals: Temp Pulse Resp BP Pulse Ox 97.9 F 93 17 152/74 96 06/17/18 07:00 06/17/18 07:00 06/17/18 07:00 06/17/18 07:00 06/17/18 07:00 General appearance: cooperative, morbidly obese, no acute distress, no febrile - Head Head exam: Present: atraumatic, normal inspection, normocephalic - Eye Eye exam: Present: EOMI, normal appearance, PERRL - ENT ENT exam: Present: mucous membranes moist - Neck Neck exam: Present: normal inspection - Respiratory Respiratory exam: Present: rhonchi (Diffuse inspiratory and expiratory rhonchi, improved from yesterday). Absent: accessory muscle use, CTAB, rales, respiratory distress, stridor, wheezes, tachypnea - Cardiovascular Cardiovascular exam: Present: RRR, +S1, +S2 - GI/Abdominal GI/Abdominal exam: Present: distended (obese), normal bowel sounds, soft, tenderness (LUQ) - Extremities Exam Extremities exam: Present: pedal edema. Absent: joint swelling, normal inspection (1+ pitting edema with tissue texture changes. Bandage on right lateral leg ), tenderness - Neurological Exam Neurological exam: Present: alert, oriented X3, no focal deficits - Psychiatric Psychiatric exam: Present: normal affect, normal mood - Skin Skin exam: Present: dry, intact, normal color, warm Consult Discharge Plan - Plan Referrals: Zoya Rogel MD [Primary Care Provider] - Prescriptions: Gentamicin Oint [Garamycin] 1 appl TP BID #1 tube - Attending Attestation I examined this patient and my medical decision-making was reviewed with the Resident Physician. I agree with the documented findings, disposition and treatment plan as described except to the extent set forth below.
[2018-06-17] MEDS: ARIPiprazole 10 MG TABLET PO SCH (09:40)
--- NOTE | 2018-06-17 09:51 | Nephrology Progress Note ---
Date of Encounter: 06/17/18 Time of Encounter: 09:50 - Assessment and Plan (1) ESRD (end stage renal disease) on dialysis Current Visit: Yes Status: Chronic ESRD on HD TTS. HD completed yesterday without complication. Recommend renal dosing of renally cleared Rx, strict I/Os, daily weights. (2) Anemia in chronic kidney disease, on chronic dialysis Current Visit: No Status: Chronic Goal Hgb is 10-11. Hgb is 10.6 stable. (3) Hyponatremia Current Visit: No Status: Chronic She has chronic hyponatremia. Continue to avoid Thiazide diuretics. NA is 132 today. (4) Hypertension Current Visit: No Status: Chronic Resume home rx. BP is stable 152/74. Qualifiers: Hypertension type: essential hypertension Qualified Code(s): I10 - Essential (primary) hypertension (5) HAP (hospital-acquired pneumonia) Current Visit: Yes Status: Acute Abx as per primary. Subjective Principal diagnosis: HERNÁN Interval history: Pt seen and examined, sitting up in chair. Patient is alert and oriented x 3. Denies nausea/vomiting/diarrhea. Objective - Vital Signs Vital signs: Vital Signs Temp Pulse Resp BP Pulse Ox 06/17/18 07:00 97.9 F 93 17 152/74 96 06/17/18 04:20 98 F 92 16 139/69 96 06/17/18 03:44 17 94 06/17/18 01:27 97.8 F 90 16 127/72 95 06/16/18 23:32 19 95 06/16/18 19:37 98.7 F 103 17 154/71 100 06/16/18 19:31 17 95 06/16/18 15:35 97.8 F 86 15 155/75 96 06/16/18 15:13 16 94 06/16/18 13:36 97.1 F L 18 141/52 06/16/18 12:45 133/57 06/16/18 12:30 139/68 06/16/18 12:15 130/78 06/16/18 12:00 132/68 06/16/18 11:45 142/67 06/16/18 11:30 142/65 06/16/18 11:15 133/69 06/16/18 11:00 135/71 06/16/18 10:45 116/66 09/06/18 10:30 141/69 06/16/18 10:15 134/71 06/16/18 10:00 135/72 Intake and Output 06/16/18 06/17/18 06/17/18 23:59 07:59 15:59 Intake Total 300 / 300 Balance 300 / 300 Intake: Oral 300 / 300 Other: Meal Dinner Percent of Meal Consumed 95% Stool Size Moderate Stool Consistency soft Stool Color Brown # Bowel Movements 1 Weight 127.5 kg Blood Glucose* 198 228 Patient Weight 06/17/18 23:59 Weight 127.5 kg - General Appearance General appearance: Present: well-developed, well-nourished EENT: Present: ATNC, hearing intact, vision intact Neck: Present: supple Respiratory: Present: clear Cardiology: Present: edema (Trace bilat lower extremity edema), normal S1, normal S2 Dialysis Vascular Access: Arteriovenous Fistula thrill: Yes bruit: Yes Gastrointestinal: Present: normoactive bowel sounds, no tenderness, no guarding Integumentary: Present: no rash, warm and dry Neurologic: Present: alert and oriented x3 Psychiatric: Present: mood/affect appropriate, cooperative - Lab 06/17/18 04:25 06/17/18 04:25 Most recent lab results Calcium 8.9 mg/dL (8.6-10.3) 06/17/18 04:25 Phosphorus 4.6 mg/dL (2.7-4.5) H 06/14/18 05:59 Consult Discharge Plan - Plan Referrals: Zoya Rogel MD [Primary Care Provider] -
--- NOTE | 2018-06-17 10:03 | Internal Med Progress Note ---
Hospitalist Progress Note - Encounter Date of Encounter: 06/17/18 Time of Encounter: 10:01 - Subjective Interval History: Patient was seen and examined at bedside reports that her SOB and cough are persistent but have improved LE is mildly improving Denies fever, chills, N/V/D No overnight events, pain is controlled - Exam Vitals: Temp Pulse Resp BP Pulse Ox 97.9 F 93 17 152/74 96 06/17/18 07:00 06/17/18 07:00 06/17/18 07:00 06/17/18 07:00 06/17/18 07:00 Exam: General: Patient is alert, oriented, no acute distress, morbidly obese Head: atraumatic, normocephalic, Eye: normal appearance, PERRL, no scleral icterus, no conjunctival injection ENT: mucous membranes moist, normal external ear exam Neck: normal inspection, trachea midline, full ROM, no carotid bruits Chest: normal inspection, symmetric chest rise, sternotomy scar Respiratory: Decreased breath sounds secondary to body habitus, crackles the posterior right lung field infrascapularly increased , no wheezes Cardiovascular: irregular . s1 and s2 No clicks, rubs, gallops, or murmors. Abdomen: Bowel sounds present normoactive x-4 quadrants. Abdomen is soft, nondistended. no Epigastric tenderness. No guarding or rebound. No organomegaly noted, obese musculoskeletal: Spontaneously moving all extremities. +3 edema of lower extremities , Skin: warm, dry, intact. stage 3 sacral ulcer, erythema of bilateral lower extremities up to knee, warm to touch, right lateral tibia area has an ulcer 2x2 draining pus / laceration that is about 6cm long that is covered with bandage Neuro: Alert and oriented x4. Sensation light touch intact. Cranial nerves 2- 12 is intact. moves lower extremities on the bed, no focal deficit Psych: Patient's affect is normal - Assessment and Plan (1) HAP (hospital-acquired pneumonia) Current Visit: Yes Status: Acute Assessment and Plan: CXR showing prominent right fissure fluid over load ( finished full HD session on admission date) vs PNA (has cough) has history of multiple hospitalization along with dialysis ( high risk for HAP) TTE 03/17/18- EF 60% on ertapenem will continue for 1 more day as per ID recs sputum cx - prelim ( ve bacteria, yeast, <10 WBC and epithelial cells) blood cx sent on 06/11- prelim negative urine antigens negative procalcitonin sent on 06/11- 0.93 ID on board cxr 06/11/18: Median sternotomy wires are noted. The cardiac silhouette appears at the upper limits of normal for size. There is prominence of the pulmonary vasculature bilaterally. Likely bibasilar atelectasis. No convincing pleural effusion or pneumothorax. CT chest 06/12/18 nterval development of bilateral ground-glass PICC scratch the interval increase in size of left pleural effusion and persistent small right pleural effusion. Dependent lower lobe consolidation is present, greater on the left, atelectasis or pneumonia. The remaining aerated lungs show ground-glass opacity and interlobular septal thickening. Findings are suggestive of edema. Interval development of moderate perihepatic ascites and body wall edema. Skin thickening of the breasts also present, greater on left. Correlation is recommended. Gas within the upper right renal pelvis which may be related to a ureteral stent if applicable. Correlation for infectious process is recommended. (2) Acute and chronic respiratory failure Current Visit: No Status: Acute Assessment and Plan: most likely secondary to HAP and fluid overload continue with O2 via nasal cannula if she desaturates start her on bipap as long as secretions are minimal neohrology consulted -received dialysis on 06/13 and 06/14 inorder to remove extra fluids duo nebs Q4H symbicort no wheezing so will hold off of steroids Antibiotic as above (3) Cellulitis of right lower extremity Current Visit: No Status: Acute Assessment and Plan: right calf has ulcer/ laceration with pus Contact precautions has history of VRE, 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 Osteopenia without convincing acute osseous abnormality. 2. Diffuse soft tissue swelling. 3. No evidence of soft tissue emphysema. CT of the right LE: IMPRESSION: 1. Ulceration along the lateral soft tissues of the mid right lower extremity corresponding to given history. No organized drainable fluid collection identified to suggest abscess. 2. Diffuse subcutaneous edema and skin thickening. Correlate clinically for cellulitis. The partially imaged distal left lower extremity demonstrates similar findings. 3. No acute osseous abnormality. No CT evidence for osteomyelitis. 4. Osteopenia. 5. Mild degenerative changes of the visualized right midfoot and hindfoot articulations. 6. Atherosclerotic disease. (4) ESRD (end stage renal disease) on dialysis Current Visit: Yes Status: Chronic Assessment and Plan: received Dialysis on 06/11/18- removed 1.7 L of fluids as per nursing check out as OP S/P dialysis on 06/13 and 06/14 due to fluid overload fluid restriction - nursing staff and patient are aware Daily weights will continue phosphate binders, calcium and nephrocaps Po4 4.6 nephrology on board (5) DMII (diabetes mellitus, type 2) Current Visit: No Status: Chronic Assessment and Plan: blood glucose is more controlled now home dose insulin detemir LDSSI Poct Q6H A1c 7.2 (6) Decubitus ulcer of sacral region, stage 3 Current Visit: No Status: Chronic Assessment and Plan: cultures from 04/04/18 grew E.COLi MDRO , proteus mirabilis and strep agalactiae wound care consult on ertapenem elevated ESR and CRP (7) Atrial fibrillation Current Visit: Yes Status: Acute Assessment and Plan: rate controlled continue BB not on OAC as she was found to be poor candidate in march 2018 - secondary to anemia and vaginal bleed she also has history of falls TTE Left Ventricle * LVEF 60%. * Normal LV chamber size, wall thickness and overall function. * Atypical septal motion consistent with post-operative status. * Mild segmental left ventricular systolic dysfunction. Right Ventricle * Normal right ventricular structure and function. Pericardium * The pericardium appears normal. Aorta * Normally sized aortic root. IVC * The IVC is not well evaluated. (8) Morbidly obese Current Visit: Yes Status: Acute Assessment and Plan: nutrition consulted (9) Goals of care, counseling/discussion Current Visit: Yes Status: Acute Assessment and Plan: had a long discussion with patient about her wishes and goals of care. she wishes to be DNR CCA DNI all questions answered and emotional support provided nurse witnessed SW and CM consult as she will most likely need termite exterminator helper placement for her multiple co-morbidities (10) DVT prophylaxis Current Visit: Yes Status: Acute Assessment and Plan: heparin Sc (11) Allergic reaction caused by a drug Current Visit: Yes Status: Resolved Assessment and Plan: was given zosyn in the ED and developed ?tongue swelling as per ED documentations patient received zosyn through out her previous hospitalizations without adverse reactions s/p Pepcid Benadryl Decadron as well as a single dose of intramuscular epinephrine in the ED with complete resolution of her symptoms. will continue to monitor her (12) Complicated UTI (urinary tract infection) Current Visit: Yes Status: Resolved Assessment and Plan: sx resolved was treated with IV Abx - Time Spent with Patient Total time spent is greater than 50% in coordination of care (as documented) at patient's floor/unit and/or counseling patient: Internal Medicine: Result - Labs CBC & Chem 7: 06/17/18 04:25 06/17/18 04:25 Labs: Short CBC 06/17/18 Range/Units 04:25 WBC 7.7 (4.3-11.1) K/mcL Hgb 10.6 L (11.5-15.4) g/dL Hct 36.5 (35.3-44.9) % Plt Count 138 L (140-400) K/mcL BMP 06/17/18 04:25 Sodium 132 L Potassium 4.5 Chloride 97 L Carbon Dioxide 32 H BUN 20 Creatinine 2.96 H Glucose 207 H Calcium 8.9 Consult Discharge Plan - Plan Referrals: Zoya Rogel MD [Primary Care Provider] - (2) Acute and chronic respiratory failure Qualifiers: Respiratory failure complication: unspecified whether with hypoxia or hypercapnia Qualified Code(s): J96.20 - Acute and chronic respiratory failure, unspecified whether with hypoxia or hypercapnia (5) DMII (diabetes mellitus, type 2) Qualifiers: Diabetes mellitus senior living insulin use: with termite exterminator helper use Diabetes mellitus complication status: with kidney complications Diabetes mellitus complication detail: with chronic kidney disease Chronic kidney disease stage: on chronic dialysis Qualified Code(s): E11.22 - Type 2 diabetes mellitus with diabetic chronic kidney disease; N18.6 - End stage renal disease; Z79.4 - oysterman (current) use of insulin; Z99.2 - Dependence on renal dialysis (7) Atrial fibrillation Qualifiers: Atrial fibrillation type: chronic Qualified Code(s): I48.2 - Chronic atrial fibrillation (11) Allergic reaction caused by a drug Qualifiers: Encounter type: initial encounter Qualified Code(s): T78.40XA - Allergy, unspecified, initial encounter
[2018-06-17] MEDS: Budesonide/Formoterol 160/4.5 1 PUFF INH IH SCH ×2 (10:38→20:31)
[2018-06-17] MEDS: Gentamicin Oint 15 GM TUBE TP SCH ×2 (11:56→22:26)
--- NOTE | 2018-06-17 15:09 | Discharge Summary ---
- NOTES TO OUTPATIENT PROVIDER Notes to Outpatient Provider: follow up wound care. [facility] BP. Follow blood glucose. follow electrolytes and hemoglobin level Orders not resulted at time of discharge: Pending orders 06/18/18 04:00 Basic Metabolic Panel AM 0400 CBC no Diff [Complete Blood Count w/o Diff] [HEME] AM 0400 06/19/18 04:00 Basic Metabolic Panel AM 0400 CBC no Diff [Complete Blood Count w/o Diff] [HEME] AM 0400 Date of Encounter: 06/18/18 Time of Encounter: 07:00 - Discharge Diagnosis (1) HAP (hospital-acquired pneumonia) Priority: Primary Status: Acute (2) Acute and chronic respiratory failure Priority: Secondary Status: Acute Qualifiers: Respiratory failure complication: unspecified whether with hypoxia or hypercapnia Qualified Code(s): J96.20 - Acute and chronic respiratory failure , unspecified whether with hypoxia or hypercapnia (3) Cellulitis of right lower extremity Priority: Secondary Status: Acute (4) ESRD (end stage renal disease) on dialysis Priority: Secondary Status: Chronic (5) DMII (diabetes mellitus, type 2) Priority: Secondary Status: Chronic Qualifiers: Diabetes mellitus senior living insulin use: with associate consulting engineer use Diabetes mellitus complication status: with kidney complications Diabetes mellitus complication detail: with chronic kidney disease Chronic kidney disease stage : on chronic dialysis Qualified Code(s): E11.22 - Type 2 diabetes mellitus with diabetic chronic kidney disease; N18.6 - End stage renal disease; Z79.4 - custodial (current) use of insulin; Z99.2 - Dependence on renal dialysis (6) Decubitus ulcer of sacral region, stage 3 Priority: Secondary Status: Chronic (7) Atrial fibrillation Priority: Secondary Status: Acute Qualifiers: Atrial fibrillation type: chronic Qualified Code(s): I48.2 - Chronic atrial fibrillation (8) Morbidly obese Priority: Secondary Status: Acute (9) Goals of care, counseling/discussion Priority: Secondary Status: Acute (10) DVT prophylaxis Priority: Secondary Status: Acute (11) Allergic reaction caused by a drug Priority: Secondary Status: Resolved Qualifiers: Encounter type: initial encounter Qualified Code(s): T78.40XA - Allergy, unspecified, initial encounter (12) Complicated UTI (urinary tract infection) Priority: Secondary Status: Resolved Hospital course: Ms. Riley is a 63 year old female CAD S/P stent in 12/2017, HFpEF, COPD on homeO2 , IDDM 2, dyspepsia, historically rate controlled atrial fibrillation not on OAC ( vaginal bleed/ anemia) , and ESRD on hemodialysis (T, , sat) presented to the emergency department from her hemodialysis center for shortness of breath. She reports that she has had persistent shortness of breath for the past 2 months but she has noticed that it had worsened in the past week. Her shortness of breath is also associated with a dry cough, she denies sputum production, denies hemoptysis. She has had no recent travel, although she has had multiple hospitalizations. She cannot recall any exacerbating or alleviating factors. She has noticed that she has been using her COPD inhalers more often especially in the past week. she completed her HD session today. removed 1.7 L As per chart review on 06/10/2018 she had OP urology procedure Cystoscopy, right ureteral stent exchange. She was admitted in April 2018 and was treated for HCAP, decubitus ulcer stage 3 and emphysematous pyelitis. On admission she was treated with vancomycin and Zosyn. While in the ED she was treated for HAP With vancomycin and Zosyn but subsequently developed swelling of the lips and mouth. Antibiotics were stopped she was given Pepcid Benadryl Decadron as well as a single dose of intramuscular epinephrine. Her symptoms resolved. on physical exam she had stage 3 sacral ulcer and right lower extremity laceration/ulcer with surrounding cellulitis. Ct of the lower extremity performed ( results below). DVt study of lower extremity was negative for DVT. Basic labs on admission was negative for any leukocytosis, BNP was mildly elevated at 590, CRP was 31 and ESR was 74. due to allergic reaction in the ED she was started on vancomycin, aztreonam and metronidazole. she was placed on contact precautions. Ct chest was performed ( full report below) for dyspnea. Nephrology was consulted and she is S/P dialysis on 06/13 and 06/14 due to fluid overload with immidiate improveemnt in her respiratory status. ID was consulted as she has history of multiple MDRO infections, VRE, MDRO, E.COLi MDRO , proteus mirabilis and strep agalactiae. Abx were switched to xyvox and ertapenem. urine antigens were negative. her respiratory status improved post dialysis and with IV Abx. wound care was consulted and she was treated with topical gentamicin in addition to IV Abx for her LLE laceration/ Ulcer with improvement. she finished 8 days of IV Abx and had finished course as per ID. bx remained negative final. as per nephrology diuretics were discontinued due to hyponatremia. SW and CM were consulted for return back to [place]. i had discussion with patietn about code status and she wishes to be DNR CCA DNI - nurse witnessed CT right lower extremity IMPRESSION: 1. Ulceration along the lateral soft tissues of the mid right lower extremity corresponding to given history. No organized drainable fluid collection identified to suggest abscess. 2. Diffuse subcutaneous edema and skin thickening. Correlate clinically for cellulitis. The partially imaged distal left lower extremity demonstrates similar findings. 3. No acute osseous abnormality. No CT evidence for osteomyelitis. 4. Osteopenia. 5. Mild degenerative changes of the visualized right midfoot and hindfoot articulations. 6. Atherosclerotic disease. CT chest : IMPRESSION: Interval development of bilateral ground-glass PICC scratch the interval increase in size of left pleural effusion and persistent small right pleural effusion. Dependent lower lobe consolidation is present, greater on the left, atelectasis or pneumonia. The remaining aerated lungs show ground-glass opacity and interlobular septal thickening. Findings are suggestive of edema. Interval development of moderate perihepatic ascites and body wall edema. Skin thickening of the breasts also present, greater on left. Correlation is recommended. Gas within the upper right renal pelvis which may be related to a ureteral stent if applicable. Correlation for infectious process is recommended. tte 03/17/18 Left Ventricle * LVEF 60%. * Normal LV chamber size, wall thickness and overall function. * Atypical septal motion consistent with post-operative status. * Mild segmental left ventricular systolic dysfunction. Right Ventricle * Normal right ventricular structure and function. Pericardium * The pericardium appears normal. Aorta * Normally sized aortic root. IVC * The IVC is not well evaluated. DVt study Impressions: Bilateral lower extremity: normal superficial and deep exam. Discharge discussed with: patient, nurse, social work, case management, vmware consultant - Time Spent with Patient Total time spent providing and/or coordinating discharge services: Greater than 30 minutes (40) - Discharge Medications Prescriptions: Alginate Dressing/Cme-Cell [Maxorb 4"X8" Dressing] 1 each TP DAILY #30 bandage Gentamicin Oint [Garamycin] 1 appl TP BID #1 tube Silver/Calcium Alginate [Algicell Ag 4"X8" Dressing] 1 each TP DAILY #30 bandage Home Medications: Colestipol HCl [Colestid] 1 gm PO BID 06/12/15 [History] Calcium Acetate [Phos-LO] 1,334 mg PO TIDWM 09/06/16 [History] ARIPiprazole [Abilify] 10 mg PO DAILY 09/13/17 [History] Aspirin Enteric Coated [Aspirin EC] 81 mg PO DAILY 09/13/17 [History] Budesonide/Formoterol 160/4.5 [Symbicort 160/4.5] 2 puff IH BIDR 09/13/17 [ History] Cholecalciferol (Vitamin D3) [Vitamin D3] 50,000 unit PO TH 09/13/17 [History] Sevelamer [Renvela] 800 mg PO DAILY 09/13/17 [History] Albuterol Neb [AccuNeb] 0.63 mg IH Q6H PRN 10/18/17 [History] Acetaminophen [Tylenol] 650 mg PO Q6HR PRN tablet 12/14/17 [Rx] amLODIPine [Norvasc] 5 mg PO DAILY 12/30/17 [History] Clopidogrel [Plavix] 75 mg PO DAILY 02/03/18 [History] Rosuvastatin Calcium [Crestor] 20 mg PO DAILY 02/27/18 [History] Amitriptyline [Elavil] 50 mg PO HS tablet 03/24/18 [Rx] Gabapentin [Neurontin] 100 mg PO TID 3 Days #9 capsule 04/08/18 [Rx] Metoclopramide [Reglan] 5 mg PO TIDAC 3 Days #9 ud.[id number] 04/08/18 [Rx] Sucralfate [Carafate] 1 gm PO QIDAC 3 Days #12 tablet 04/08/18 [Rx] Renal Vitamin [Renal Caps Softgel] 1 mg PO DAILY capsule 04/17/18 [Rx] Carvedilol 12.5 mg PO BID 04/28/18 [History] Darbepoetin [Aranesp] 60 mcg SQ TH 04/28/18 [History] Insulin DETEMIR [Levemir] 28 unit SQ HS 04/28/18 [History] Insulin LISPRO [HumaLOG] 2 - 10 units SQ TIDWM 04/28/18 [History] Lactobacillus Acidophilus/Fos [Acidophilus Probiotic Tablet] 1 tab PO DAILY [History] Omeprazole [PriLOSEC] 20 mg PO DAILY 04/28/18 [History] Ondansetron HCl [Zofran] 4 mg PO Q12H PRN 04/28/18 [History] OxyCODONE/APAP 10/325 [Percocet 10/325 MG] 1 tab PO Q6H PRN 3 Days #12 tablet [Rx] Alginate Dressing/Cme-Cell [Maxorb 4"X8" Dressing] 1 each TP DAILY #30 bandage 06/17/18 [Rx] Gentamicin Oint [Garamycin] 1 appl TP BID #1 tube 06/17/18 [Rx] Silver/Calcium Alginate [Algicell Ag 4"X8" Dressing] 1 each TP DAILY #30 bandage 06/17/18 [Rx] Allergies/Adverse Reactions: 3 Allergy/AdvReac Type Severity Reaction Status Date / Time piperacillin [From Zosyn] Allergy Anaphylaxis Verified 06/11/18 13:33 tazobactam [From Zosyn] Allergy Anaphylaxis Verified 06/11/18 13:33 Date of admission: 06/14/18 13:28 Primary care physician: Zoya Rogel MD Consults: 06/15/18 08:00 Consult to Dialysis [CONS] ONCE 06/16/18 08:15 Consult to Dialysis [CONS] ONCE - Constitutional Vitals: Temp Pulse Resp BP Pulse Ox 98.5 F 86 17 158/99 91 06/17/18 11:11 06/17/18 11:11 06/17/18 11:11 06/17/18 11:11 06/17/18 11:11 Exam: General: Patient is alert, oriented, no acute distress, morbidly obese Head: atraumatic, normocephalic, Eye: normal appearance, PERRL, no scleral icterus, no conjunctival injection ENT: mucous membranes moist, normal external ear exam Neck: normal inspection, trachea midline, full ROM, no carotid bruits Chest: normal inspection, symmetric chest rise, sternotomy scar Respiratory: Decreased breath sounds secondary to body habitus, crackles the posterior right lung field infrascapularly improved , no wheezes Cardiovascular: irregular . s1 and s2 No clicks, rubs, gallops, or murmors. Abdomen: Bowel sounds present normoactive x-4 quadrants. Abdomen is soft, nondistended. no Epigastric tenderness. No guarding or rebound. No organomegaly noted, obese musculoskeletal: Spontaneously moving all extremities. +3 edema of lower extremities , Skin: warm, dry, intact. stage 3 sacral ulcer, erythema of bilateral lower extremities (improved) laceration that is about 6cm long that is covered with bandage Neuro: Alert and oriented x4. Sensation light touch intact. Cranial nerves 2- 12 is intact. moves lower extremities on the bed, no focal deficit Psych: Patient's affect is normal - Patient Status Disposition: Transfer SNF Condition: Fair Functional capacity at discharge: uses cane/walker Overall status at discharge: patient is progressing back to baseline - Discharge Instructions Follow Up With: Zoya Rogel MD [Primary Care Provider] - (Follow up with primary care provider 5-7 days after discharge.) Obdulio Van MD [Partnered Physician] - (Web requested 06/17/2018) - Diet and Activity Activity: as per physical therapy, increase activity as tolerated Diet: diabetic diet (renal)
--- NOTE | 2018-06-17 17:02 | Physician Discharge Referral ---
ExtendedCare Referral Info Transfer To: ECF Provider in Charge after Transfer: PCP Institutional Level of Care: Skilled - Diagnosis (1) HAP (hospital-acquired pneumonia) Priority: Primary Status: Acute (2) Acute and chronic respiratory failure Priority: Secondary Status: Acute (3) Cellulitis of right lower extremity Status: Acute (4) ESRD (end stage renal disease) on dialysis Priority: Secondary Status: Chronic (5) DMII (diabetes mellitus, type 2) Priority: Secondary Status: Chronic (6) Decubitus ulcer of sacral region, stage 3 Priority: Secondary Status: Chronic (7) Atrial fibrillation Priority: Secondary Status: Acute (8) Morbidly obese Priority: Secondary Status: Acute (9) Goals of care, counseling/discussion Priority: Secondary Status: Acute (10) DVT prophylaxis Priority: Secondary Status: Acute (11) Allergic reaction caused by a drug Priority: Secondary Status: Resolved (12) Complicated UTI (urinary tract infection) Priority: Secondary Status: Resolved Prognosis: Fair Aware of Diagnosis: Patient Aware of Prognosis: Patient - Transfer Medications Prescriptions: Alginate Dressing/Cme-Cell [Maxorb 4"X8" Dressing] 1 each TP DAILY #30 bandage Gentamicin Oint [Garamycin] 1 appl TP BID #1 tube Silver/Calcium Alginate [Algicell Ag 4"X8" Dressing] 1 each TP DAILY #30 bandage Home Medications: Colestipol HCl [Colestid] 1 gm PO BID 06/12/15 [History] Calcium Acetate [Phos-LO] 1,334 mg PO TIDWM 09/06/16 [History] ARIPiprazole [Abilify] 10 mg PO DAILY 09/13/17 [History] Aspirin Enteric Coated [Aspirin EC] 81 mg PO DAILY 09/13/17 [History] Budesonide/Formoterol 160/4.5 [Symbicort 160/4.5] 2 puff IH BIDR 09/13/17 [ History] Cholecalciferol (Vitamin D3) [Vitamin D3] 50,000 unit PO TH 09/13/17 [History] Sevelamer [Renvela] 800 mg PO DAILY 09/13/17 [History] Albuterol Neb [AccuNeb] 0.63 mg IH Q6H PRN 10/18/17 [History] Acetaminophen [Tylenol] 650 mg PO Q6HR PRN tablet 12/14/17 [Rx] amLODIPine [Norvasc] 5 mg PO DAILY 12/30/17 [History] Clopidogrel [Plavix] 75 mg PO DAILY 02/03/18 [History] Rosuvastatin Calcium [Crestor] 20 mg PO DAILY 02/27/18 [History] Amitriptyline [Elavil] 50 mg PO HS tablet 03/24/18 [Rx] Gabapentin [Neurontin] 100 mg PO TID 3 Days #9 capsule 04/08/18 [Rx] Metoclopramide [Reglan] 5 mg PO TIDAC 3 Days #9 ud.liq 04/08/18 [Rx] Sucralfate [Carafate] 1 gm PO QIDAC 3 Days #12 tablet 04/08/18 [Rx] Renal Vitamin [Renal Caps Softgel] 1 mg PO DAILY capsule 04/17/18 [Rx] Carvedilol 12.5 mg PO BID 04/28/18 [History] Darbepoetin [Aranesp] 60 mcg SQ TH 04/28/18 [History] Insulin DETEMIR [Levemir] 28 unit SQ HS 04/28/18 [History] Insulin LISPRO [HumaLOG] 2 - 10 units SQ TIDWM 04/28/18 [History] Lactobacillus Acidophilus/Fos [Acidophilus Probiotic Tablet] 1 tab PO DAILY [History] Omeprazole [PriLOSEC] 20 mg PO DAILY 04/28/18 [History] Ondansetron HCl [Zofran] 4 mg PO Q12H PRN 04/28/18 [History] OxyCODONE/APAP 10/325 [Percocet 10/325 MG] 1 tab PO Q6H PRN 3 Days #12 tablet [Rx] Alginate Dressing/Cme-Cell [Maxorb 4"X8" Dressing] 1 each TP DAILY #30 bandage 06/17/18 [Rx] Gentamicin Oint [Garamycin] 1 appl TP BID #1 tube 06/17/18 [Rx] Silver/Calcium Alginate [Algicell Ag 4"X8" Dressing] 1 each TP DAILY #30 bandage 06/17/18 [Rx] Allergies/Adverse Reactions: 3 Allergy/AdvReac Type Severity Reaction Status Date / Time piperacillin [From Zosyn] Allergy Anaphylaxis Verified 06/11/18 13:33 tazobactam [From Zosyn] Allergy Anaphylaxis Verified 06/11/18 13:33 - Respiratory Orders Oxygen / L per min (2) Smoking Cessation: Smoking cessation has been advised. For more information, call the [place] Tobacco Quit Line at 0-905-TBOS-NOW. - Advance Directives Code Status: DNR-Arrest/Don't Intubate - Mobility Orders Chair - Rehabiliation Orders Rehab Potential: Fair Rehab Orders: ROM Exercises - Treatments List/Other: laceration to the right lower leg and unstageable coccyx ulcer. clean with CHG soap and water, rinse well with water and pat dry. apply calcium alginate with silver ( CSS-maxorb AG) to jarred wounds. cover with allevyn multisite foam dressing change daily PRN and if soiled - Diet Orders Renal CERTIFICATION: I certify that the transfer of the above named patient to an Extended Care Facility is necessary for the continuing treatment of the diagnosis listed. The above information is true and accurate reflection of patient's current condition. Confidential - Redisclosure prohibited without a patient's written consent.
[2018-06-17] MEDS: Insulin DETEMIR 100 UNIT/ML X5UNITS SQ SCH (22:22)
[2018-06-17] MEDS: *HR* OxyCODONE/APAP 5/325 TABLET PO PRN (22:26)
[2018-06-18] MEDS: Ipratropium/Albuterol Neb 3 ML IH SCH ×6 (03:42→20:39)
[2018-06-18 04:02] LABS: Hemoglobin 9.9 g/dL (11.5-15.4); Mean Corpuscular HGB Conc 28.3 g/dL (31.6-35.5); Mean Corpuscular Hemoglobin 25.1 pg (28.0-33.3); Mean Corpuscular Volume 88.8 fL (83.0-100.0); Mean Platelet Volume 10.8 fL (9.4-12.4); Platelet Count 128 K/mcL (140-400); Red Blood Count 3.94 M/mcL (3.82-4.97); Red Cell Distribution Width 16.7 % (11.5-14.5)
[2018-06-18 04:22] LABS: Calcium 9.1 mg/dL (8.6-10.3); Potassium 4.7 mEq/L (3.5-5.1)
[2018-06-18] MEDS: *HR* Heparin 5,000 UNIT/ML VIAL SQ SCH ×2 (05:48→15:57)
[2018-06-18] MEDS: *HR* OxyCODONE/APAP 5/325 TABLET PO PRN ×2 (05:56→12:40)
[2018-06-18] MEDS: Insulin LISPRO 300 UNITS/3 ML VIAL SQ SCH ×4 (07:24→20:13)
[2018-06-18] MEDS: Budesonide/Formoterol 160/4.5 1 PUFF INH IH SCH ×2 (07:36→20:39)
[2018-06-18] MEDS ORDERED: 0.9 % Sodium Chloride 250 ML IVC PRN (07:38)
[2018-06-18] MEDS ORDERED: 0.9 % Sodium Chloride 1,000 ML PRIME SCH (07:45)
[2018-06-18] MEDS: Calcium Acetate 667 MG CAPSULE PO SCH ×3 (09:43→18:06)
[2018-06-18] MEDS: Sucralfate 1 GM TABLET PO SCH ×3 (09:44→18:34)
[2018-06-18] MEDS: Renal Vitamin 1 CAP CAPSULE PO SCH (09:44)
[2018-06-18] MEDS: ARIPiprazole 10 MG TABLET PO SCH (09:44)
[2018-06-18] MEDS: Aspirin Enteric Coated 81 MG Tablet PO SCH (09:44)
[2018-06-18] MEDS: Lactobacillus 1 EACH CAP.SPRINK PO SCH (09:44)
[2018-06-18] MEDS: Gentamicin Oint 15 GM TUBE TP SCH (09:44)
[2018-06-18] MEDS: Gabapentin 100 MG CAPSULE PO SCH ×3 (09:44→20:08)
--- NOTE | 2018-06-18 10:06 | Nephrology Progress Note ---
Date of Encounter: 06/18/18 Time of Encounter: 10:00 - Assessment and Plan (1) Anemia in chronic kidney disease, on chronic dialysis Current Visit: No Status: Chronic (2) Hyponatremia Current Visit: No Status: Chronic (3) Hypertension Current Visit: No Status: Chronic Qualifiers: Hypertension type: essential hypertension Qualified Code(s): I10 - Essential (primary) hypertension (4) HAP (hospital-acquired pneumonia) Current Visit: Yes Status: Acute (5) ESRD (end stage renal disease) on dialysis Current Visit: Yes Status: Chronic Subjective Principal diagnosis: HERNÁN Interval history: Interim noted, pt seen and examined for HD today. Pt had consecutive HD/UF from 06/13 to 06/16 with approx. 15kg removed (over 30lbs) and off yesterday. Objective - Vital Signs Vital signs: Vital Signs Temp Pulse Resp BP Pulse Ox 06/18/18 07:36 18 97 06/18/18 07:05 97.7 F 97 18 137/74 99 06/18/18 03:59 97 F L 81 17 135/82 96 06/18/18 03:52 16 91 06/17/18 23:56 97.9 F 73 17 131/71 92 06/17/18 20:51 97 F L 80 17 145/71 98 06/17/18 20:31 21 91 06/17/18 15:57 98.9 F 98 16 173/74 94 06/17/18 11:11 98.5 F 86 17 158/99 91 06/17/18 10:38 18 92 Intake and Output 06/17/18 06/18/18 06/18/18 23:59 07:59 15:59 Intake Total 335 / 335 Balance 335 / 335 Intake: IV Fluids 95 / 95 INVanz 500 MG In 0.9 % Sodium 95 / 95 Chloride 100 ML @ 100 mls/hr IVPB 2200 [facility] Rx#:[id number] Oral 240 / 240 Other: Meal Dinner Percent of Meal Consumed 80% Weight 127.1 kg Blood Glucose* 237 138 - Lab 06/18/18 03:50 06/18/18 03:50 Most recent lab results Calcium 9.1 mg/dL (8.6-10.3) 06/18/18 03:50 Phosphorus 4.6 mg/dL (2.7-4.5) H 06/14/18 05:59 Consult Discharge Plan - Plan Referrals: Zoya Rogel MD [Primary Care Provider] - (Follow up with primary care provider 5-7 days after discharge.) Obdulio Van MD [Partnered Physician] - (Web requested 06/17/2018) Prescriptions: Alginate Dressing/Cme-Cell [Maxorb 4"X8" Dressing] 1 each TP DAILY #30 bandage Gentamicin Oint [Garamycin] 1 appl TP BID #1 tube Silver/Calcium Alginate [Algicell Ag 4"X8" Dressing] 1 each TP DAILY #30 bandage
[2018-06-18 18:18] VITALS: BP 164/75
[2018-06-18] MEDS: amLODIPine 5 MG TABLET PO SCH (18:33)
[2018-06-18] MEDS: Insulin DETEMIR 100 UNIT/ML X5UNITS SQ SCH (20:14)
== END 2018-06-18 21:30 | DRG 193 ==
LOC: EMEROOARM 10:40 → 2ANU 10:40 → SUATTDRO 15:09 → 2ANU 16:04
PROVIDERS: ADMIT Student in an Organized Health Care Education/Training Program; ATTEND Internal Medicine

== ENCOUNTER 2018-07-02 20:59 | Observation (INO) ==
[2018-07-02] MEDS ORDERED: Aspirin 81 MG TAB.CHEW PO ONE (21:28)
--- NOTE | 2018-07-02 21:33 | Emergency Department Note ---
Disposition Clinical Impression: ACS (acute coronary syndrome) Disposition: Admitted As Inpatient Condition: Good General Adult HPI - General Chief complaint: ED Chest Pain Stated complaint: chest pain Time Seen by Provider: 07/02/18 21:19 Source: patient, EMS Limitations: no limitations - History of Present Illness HPI Narrative: ED ATTESTATION NOTE: I examined this patient and my medical decision-making was reviewed with the Resident Physician/DRILLING ENGINEER/PA/Student. I have personally performed a face to face evaluation on this patient & I agree with the documented findings, disposition and treatment plan as described except to the extent set forth below. Patient was seen with emergency medicine resident Ja Askew please see copy of her note for details of this encounter Briefly: 63-year-old female by EMS from [facility] for chest pain waiting to the left jaw neck and arm. History of abdominal vessel bypass patient is a vasculopath she is end-stage renal disease hypertension patient has atrial fibrillation she is on Plavix. EKG shows A. fib rate controlled at 74 bpm no acute ischemic changes when compared to prior EKG. Patient is neurologically nonfocal patient will get an aspirin patient will get nitroglycerin patient get screening labs including troponin and chest x-ray with admission anticipated. Providing 35 minutes critical care service for this patient. Admission disposition pending Pain Scale: 8 - Related Data Home Medications Medication Instructions Recorded Confirmed Colestipol HCl [Colestid] 1 gm PO BID 06/12/15 06/11/18 Calcium Acetate [Phos-LO] 1,334 mg PO TIDWM 09/06/16 06/11/18 ARIPiprazole [Abilify] 10 mg PO DAILY 09/13/17 06/11/18 Aspirin Enteric Coated [Aspirin EC] 81 mg PO DAILY 09/13/17 06/11/18 Budesonide/Formoterol 160/4.5 2 puff IH BIDR 09/13/17 06/11/18 [Symbicort 160/4.5] Cholecalciferol (Vitamin D3) 50,000 unit PO TH 09/13/17 06/11/18 [Vitamin D3] Sevelamer [Renvela] 800 mg PO DAILY 09/13/17 06/11/18 Albuterol Neb [AccuNeb] 0.63 mg IH Q6H PRN 10/18/17 06/11/18 amLODIPine [Norvasc] 5 mg PO DAILY 12/30/17 06/11/18 Clopidogrel [Plavix] 75 mg PO DAILY 02/03/18 06/11/18 Rosuvastatin Calcium [Crestor] 20 mg PO DAILY 02/27/18 06/11/18 Carvedilol 12.5 mg PO BID 04/28/18 06/11/18 Darbepoetin [Aranesp] 60 mcg SQ TH 04/28/18 06/11/18 Insulin DETEMIR [Levemir] 28 unit SQ HS 04/28/18 06/11/18 Insulin LISPRO [HumaLOG] 2 - 10 units SQ TIDWM 04/28/18 06/11/18 Lactobacillus Acidophilus/Fos 1 tab PO DAILY 04/28/18 06/11/18 [Acidophilus Probiotic Tablet] Omeprazole [PriLOSEC] 20 mg PO DAILY 04/28/18 06/11/18 Ondansetron HCl [Zofran] 4 mg PO Q12H PRN 04/28/18 06/11/18 Previous Rx's Medication Instructions Recorded Acetaminophen [Tylenol] 650 mg PO Q6HR PRN tablet 12/14/17 Amitriptyline [Elavil] 50 mg PO HS tablet 03/24/18 Metoclopramide [Reglan] 5 mg PO TIDAC 3 Days #9 ud.liq 04/08/18 Sucralfate [Carafate] 1 gm PO QIDAC 3 Days #12 tablet 04/08/18 Renal Vitamin [Renal Caps Softgel] 1 mg PO DAILY capsule 04/17/18 Alginate Dressing/Cme-Cell [Maxorb 1 each TP DAILY #30 bandage 06/17/18 4"X8" Dressing] Gentamicin Oint [Garamycin] 1 appl TP BID #1 tube 06/17/18 Silver/Calcium Alginate [Algicell 1 each TP DAILY #30 bandage 06/17/18 Ag 4"X8" Dressing] Gabapentin [Neurontin] 100 mg PO TID 2 Days #6 capsule 06/18/18 OxyCODONE/APAP 5/325 [Percocet 1 each PO Q8HR PRN 2 Days #6 tablet 06/18/18 5/325 MG] Allergies Allergy/AdvReac Type Severity Reaction Status Date / Time piperacillin [From Zosyn] Allergy Anaphylaxis Verified 09/01/18 13:33 tazobactam [From Zosyn] Allergy Anaphylaxis Verified 06/11/18 13:33 Past Medical History - Past Medical History Medical history: Reports: atrial fibrillation, CHF, COPD, dementia, diabetes, GI bleed, hyperlipidemia, hypertension, myocardial infarction, peripheral artery disease, renal disease, other Surgical history: Reports: angioplasty/stent, appendectomy, cholecystectomy, coronary bypass (CABG), hysterectomy, knee replacement, other, IVC filter Psychiatric history: Reports: anxiety, depression, schizophrenia, previous psychiatric hospitalization [employer] history: Reports: other - Social History Smoking Status: Current every day smoker Smokeless Tobacco Status: No Alcohol use: Reports: none Drug use: Reports: none Physical Exam - General Limitations: no limitations General appearance: alert Course Vital Signs Temperature 97.9 F 07/02/18 21:07 Pulse Rate 91 07/02/18 21:07 Respiratory Rate 20 07/02/18 21:07 Blood Pressure 114/68 07/02/18 21:07 O2 Sat by Pulse Oximetry 100 07/02/18 21:07 Temperature 97.9 F 07/02/18 21:07 Pulse Rate 91 07/02/18 21:07 Respiratory Rate 20 07/02/18 21:07 Blood Pressure 114/68 07/02/18 21:07 O2 Sat by Pulse Oximetry 100 07/02/18 21:07 Oxygen Delivery Oxygen Delivery Room Air
--- NOTE | 2018-07-02 22:04 | Emergency Department Note ---
Disposition Clinical Impression: ACS (acute coronary syndrome) Disposition: Admitted As Inpatient Condition: Good Time of Disposition: 23:53 Chest Pain HPI - General Chief Complaint: ED Chest Pain Stated Complaint: chest pain Time Seen by Provider: 07/02/18 21:19 Source: patient, EMS Mode of arrival: EMS Limitations: no limitations Vital Signs Reviewed: Yes Nursing Notes Reviewed: Yes - History of Present Illness HPI Narrative: 63 old female presents to the emergency department via EMS for chest pain. Patient does have history of dialysis, CHF, COPD with nightly oxygen and daily as needed, double bypass approximately 6 years ago with multiple stents placed most recent stent placed 2 years ago. Her chest pain she describes as a 9 out of 10 located in the left side of her chest going up into her jaw on her left arm. She said this does feel similar to last time she had heart stents as well as double bypass. She has been nauseous but has not vomited the nausea is gone away now. Patient said the chest pain started at approximately 11:00 when she was at dialysis. It occurred right after dialysis was normally does not happen to her. Patient otherwise has no complete this time. Severity scale (1-10): 8 - Related Data Home Medications Medication Instructions Recorded Confirmed Colestipol HCl [Colestid] 1 gm PO BID 06/12/15 06/11/18 Calcium Acetate [Phos-LO] 1,334 mg PO TIDWM 09/06/16 06/11/18 ARIPiprazole [Abilify] 10 mg PO DAILY 09/13/17 06/11/18 Aspirin Enteric Coated [Aspirin EC] 81 mg PO DAILY 09/13/17 06/11/18 Budesonide/Formoterol 160/4.5 2 puff IH BIDR 09/13/17 06/11/18 [Symbicort 160/4.5] Cholecalciferol (Vitamin D3) 50,000 unit PO TH 09/13/17 06/11/18 [Vitamin D3] Sevelamer [Renvela] 800 mg PO DAILY 09/13/17 06/11/18 Albuterol Neb [AccuNeb] 0.63 mg IH Q6H PRN 10/18/17 06/11/18 amLODIPine [Norvasc] 5 mg PO DAILY 12/30/17 06/11/18 Clopidogrel [Plavix] 75 mg PO DAILY 02/03/18 06/11/18 Rosuvastatin Calcium [Crestor] 20 mg PO DAILY 02/27/18 06/11/18 Carvedilol 12.5 mg PO BID 04/28/18 06/11/18 Darbepoetin [Aranesp] 60 mcg SQ TH 04/28/18 06/11/18 Insulin DETEMIR [Levemir] 28 unit SQ HS 04/28/18 06/11/18 Insulin LISPRO [HumaLOG] 2 - 10 units SQ TIDWM 04/28/18 06/11/18 Lactobacillus Acidophilus/Fos 1 tab PO DAILY 04/28/18 06/11/18 [Acidophilus Probiotic Tablet] Omeprazole [PriLOSEC] 20 mg PO DAILY 04/28/18 06/11/18 Ondansetron HCl [Zofran] 4 mg PO Q12H PRN 04/28/18 06/11/18 Previous Rx's Medication Instructions Recorded Acetaminophen [Tylenol] 650 mg PO Q6HR PRN tablet 12/14/17 Amitriptyline [Elavil] 50 mg PO HS tablet 03/24/18 Metoclopramide [Reglan] 5 mg PO TIDAC 3 Days #9 ud.liq 04/08/18 Sucralfate [Carafate] 1 gm PO QIDAC 3 Days #12 tablet 04/08/18 Renal Vitamin [Renal Caps Softgel] 1 mg PO DAILY capsule 04/17/18 Alginate Dressing/Cme-Cell [Maxorb 1 each TP DAILY #30 bandage 06/17/18 4"X8" Dressing] Gentamicin Oint [Garamycin] 1 appl TP BID #1 tube 06/17/18 Silver/Calcium Alginate [Algicell 1 each TP DAILY #30 bandage 06/17/18 Ag 4"X8" Dressing] Gabapentin [Neurontin] 100 mg PO TID 2 Days #6 capsule 06/18/18 OxyCODONE/APAP 5/325 [Percocet 1 each PO Q8HR PRN 2 Days #6 tablet 06/18/18 5/325 MG] Allergies Allergy/AdvReac Type Severity Reaction Status Date / Time piperacillin [From Zosyn] Allergy Anaphylaxis Verified 06/11/18 13:33 tazobactam [From Zosyn] Allergy Anaphylaxis Verified 06/11/18 13:33 All systems ED: reviewed and negative except as stated. Review of Systems: As Per HPI Constitutional: Denies: fever, chills, weakness, weight change Eyes: Denies: eye pain, eye discharge, vision change ENT ED: Denies: ear pain, throat pain, dental pain, hearing loss, epistaxis, congestion, dysphagia Cardiovascular: Reports: chest pain, dyspnea on exertion. Denies: palpitations , edema, syncope Respiratory: Denies: cough, dyspnea, wheezes, hemoptysis, stridor Gastrointestinal: Denies: abdominal pain, nausea, vomiting, diarrhea, constipation, hematemesis, melena, hematochezia Genitourinary: Denies: dysuria, frequency, hematuria, discharge Musculoskeletal: Denies: back pain, neck pain, arthralgia, myalgia Integumentary: Denies: rash, abrasion, lesions Neurological: Denies: headache, weakness, numbness, paresthesias, confusion, abnormal gait, vertigo Psychiatric: Denies: anxiety, depression, suicidal thoughts, homicidal thoughts , auditory hallucinations, visual hallucinations Endocrine: Denies: fatigue Hematological/Lymphatic: Denies: easy bleeding, easy bruising Allergic/Immunologic: Denies: facial swelling, urticaria Chest Pain PMH - Past Medical History Medical history: Reports: atrial fibrillation, CHF, COPD, dementia, diabetes, GI bleed, hyperlipidemia, hypertension, myocardial infarction, peripheral artery disease, renal disease, other Surgical history: Reports: angioplasty/stent, appendectomy, cholecystectomy, coronary bypass (CABG), hysterectomy, knee replacement, other, IVC filter Psychiatric history: Reports: anxiety, depression, schizophrenia, previous psychiatric hospitalization Prior Cardiac Testing/Procedures: Stenting [employer] history: Reports: other - Social History Smoking Status: Current every day smoker Alcohol use: Reports: none Drug use: Reports: none Physical Exam - General Limitations: no limitations General appearance: alert - Head Head exam: atraumatic, normocephalic, normal inspection - Eye Eye exam: Present: normal appearance, PERRL, EOMI - ENT ENT exam: normal exam, normal oropharynx, mucous membranes moist - Neck Neck exam: Present: normal inspection, full ROM, trachea midline - Chest Chest inspection: Present: normal inspection, symmetric chest wall rise - Respiratory Respiratory exam: Present: normal lung sounds bilaterally - Cardiovascular Cardiovascular exam: Present: regular rate, normal rhythm, normal heart sounds - Abdominal Exam Abdominal exam: Present: soft, Non-Tender, normal bowel sounds. Absent: tenderness, distention, guarding, rebound, rigidity - Extremities Exam Extremities exam: Present: normal inspection, full ROM. Absent: tenderness, pedal edema - Back Exam Back exam: Present: normal inspection, full ROM. Absent: tenderness - Neurological Exam Neurological exam: Present: alert, oriented X3 - Skin Skin exam: Present: warm, dry, intact, normal color Course Course Narrative: We will do basic chest pain workup including CBC, BMP, troponin, EKG, chest x- ray patient was given 2 nitroglycerin in route via EMS we will not continue with that. We will give full dose aspirin here. Patient does have many risk factors and due to previous heart catheterization as well as stents and bypass patient most likely will be admitted due to elevated heart score for further cardiac workup Vital Signs Temperature 97.9 F 07/02/18 21:07 Pulse Rate 91 07/02/18 21:07 Respiratory Rate 20 07/02/18 21:07 Blood Pressure 114/68 07/02/18 21:07 O2 Sat by Pulse Oximetry 100 07/02/18 21:07 Temperature 97.9 F 07/02/18 21:07 Pulse Rate 72 07/02/18 23:25 Respiratory Rate 12 07/02/18 23:25 Blood Pressure 114/60 07/02/18 23:25 O2 Sat by Pulse Oximetry 100 07/02/18 23:25 Oxygen Delivery Oxygen Delivery Nasal Cannula Chest Pain - [facility] Narrative Medical decision making narrative: 63 old female here with chest pain. Vision does have chronic kidney disease creatinine is elevated but right around her normal. Troponin was negative. EKG had no acute findings. Patient was not given nitroglycerin here as she did get 2 in route the did not help her chest pain. Did have give full dose aspirin. Patient was having all other labs which were within normal limits. This x-ray no acute findings. Due to patient's risk factors and having a heart score of 4 we felt admission would be warranted. Patient did agree with this plan. I spoke with the hospitalist Dr. Combs who agreed to accept the patient to their service. He did request that we give the patient 4 mg of morphine to help with the pain. I will order that given see if that helps. Patient admitted in stable condition Chest X-Ray 09/22/18 21:28 IMPRESSION: Mild cardiomegaly with interstitial pulmonary edema, similar in appearance to prior exam. Small left pleural effusion. D/ / Dennis Bartlett MD / Dennis Bartlett MD Interpreting Provider: Dennis Bartlett MD - Medical Records Medical records reviewed: Yes I reviewed the patient's medical records. - Lab Data Lab results reviewed: Yes I reviewed the patient's lab results. Result diagrams: 07/02/18 21:48 07/02/18 21:48 Lab Results 07/02/18 07/02/18 07/02/18 Range/Units 21:48 21:48 21:48 WBC 6.3 (4.3-11.1) K/mcL RBC 4.09 (3.82-4.97) M/mcL Hgb 10.3 L (11.5-15.4) g/dL Hct 35.1 L (35.3-44.9) % MCV 85.8 (83.0-100.0) fL MCH 25.2 L (28.0-33.3) pg MCHC 29.3 L (31.6-35.5) g/dL RDW 17.7 H (11.5-14.5) % Plt Count 123 L (140-400) K/mcL MPV 11.3 (9.4-12.4) fL Immature Gran % 0.9 (0-4) % Seg Neutrophils % 71.4 % Lymphocytes % 16.1 % Monocytes % 9.8 % Eosinophils % 0.9 % Basophils % 0.9 % Neutrophils # 4.5 (1.6-8.9) K/mcL Lymphocytes # 1.0 (0.6-4.6) K/mcL Monocytes # 0.6 (0.0-1.3) K/mcL Eosinophils # 0.1 (0.0-0.6) K/mcL Basophils # 0.1 (0.0-0.2) K/mcL PT 14.7 H (9.4-12.1) Seconds INR 1.3 APTT 32.8 (26.0-36.0) Seconds Sodium 133 L (136-145) mEq/L Potassium 3.5 (3.5-5.1) mEq/L Chloride 99 (98-107) mEq/L Carbon Dioxide 26 (23-29) mEq/L BUN 20 (8-23) mg/dL Creatinine 2.81 H (0.60-1.20) mg/dL Est GFR ( Amer) 21 L (> 60) Est GFR (Non-Af Amer) 17 L (> 60) BUN/Creatinine Ratio 7 (6-26) Glucose 340 H (70-105) mg/dL Calculated Osmolality 292 (280-300) Calcium 8.3 L (8.6-10.3) mg/dL Troponin I < 0.03 (< 0.04) ng/mL - Radiology Data Radiology results reviewed: Yes I reviewed the patient's radiology results. - EKG Data EKG attestation: Yes I reviewed and interpreted this EKG. EKG results narrative: EKG done at 2113 review myself and the attending shows A. fib a rate of 74, QRS 94, QTc 473 with a normal axis. No acute ST changes no acute T-wave changes no other signs of ischemia. No heart block, hypertrophy, heart strain. No WPW/ Brugada/HOCM. EKG is unchanged when compared with old one done 06/11/18 Heart Score - Score History: Moderately Suspicious EKG: Normal Age: 45-65 Risk Factors: Equal/Greater than 3 risk factor or history of atherosclerotic disease Troponin: Less than normal limit HEART Score Total: 4
[2018-07-02] MEDS ORDERED: Nitroglycerin 0.4 MG TAB.SUBL SL PRN (22:05)
[2018-07-02 22:10] LABS: Basophils # 0.1 K/mcL (0.0-0.2); Basophils % 0.9 %; Eosinophils # 0.1 K/mcL (0.0-0.6); Eosinophils % 0.9 %; Hematocrit 35.1 % (35.3-44.9); Hemoglobin 10.3 g/dL (11.5-15.4); Immature Granulocytes % 0.9 % (0-4); Lymphocytes % 16.1 %; Mean Corpuscular HGB Conc 29.3 g/dL (31.6-35.5); Mean Corpuscular Hemoglobin 25.2 pg (28.0-33.3); Mean Corpuscular Volume 85.8 fL (83.0-100.0); Mean Platelet Volume 11.3 fL (9.4-12.4); Monocytes # 0.6 K/mcL (0.0-1.3); Monocytes % 9.8 %; Neutrophils # 4.5 K/mcL (1.6-8.9); Platelet Count 123 K/mcL (140-400); Red Blood Count 4.09 M/mcL (3.82-4.97); Red Cell Distribution Width 17.7 % (11.5-14.5); Segmented Neutrophils % 71.4 %
[2018-07-02 22:15] LABS: INR 1.3; Prothrombin Time 14.7 Seconds (9.4-12.1)
[2018-07-02 22:18] LABS: Activated Partial Thrombo Time 32.8 Seconds (26.0-36.0)
[2018-07-02 22:31] LABS: BUN/Creatinine Ratio 7 (6-26); Blood Urea Nitrogen 20 mg/dL (8-23); Calcium 8.3 mg/dL (8.6-10.3); Carbon Dioxide 26 mEq/L (23-29); Chloride 99 mEq/L (98-107); Glucose 340 mg/dL (70-105); Osmolality,Calculated 292 (280-300); Potassium 3.5 mEq/L (3.5-5.1); Sodium 133 mEq/L (136-145); eGFR For Non-African Americans 17 (> 60)
[2018-07-02 23:00] LABS: Troponin I < 0.03 ng/mL (< 0.04)
[2018-07-02] MEDS ORDERED: *HR* Morphine 2 MG/ML SYRINGE IVP ONE (23:53)
[2018-07-03] MEDS ORDERED: Naloxone 0.4 MG/ML INJ IVP PRN (05:46)
--- NOTE | 2018-07-03 05:54 | Internal Med History&Physical ---
Date of Encounter: 07/03/18 Time of Encounter: 04:15 Internal Medicine - H&P: HPI Chief complaint: Chest pain Admitted From: Emergency Dept Plans for Post Hospital Care: Home History of present illness: Ms. Riley is a 63 year old female Patient presented to the ER after experiencing chest pain after dialysis. She has a long history of cardiac problems, as well as ESRD and diabetes. She was very groggy during my exam, and would not answer my questions, thus history obtained primarily from ER report. She stated that her chest pain was located on the left side, and radiated to her jaw and left arm. The pain was similar to the last time she had chest pain that resulted in heart stents and double bypass. Chest pain began earlier in the day when she was at her dialysis appointment. In the ER troponin was <0.03, platelets were 123, creatinine was 2.81, and glucose was 340. EKG showed afib with rate of 74, no acute ST changes or signs of ischemia. Chest x-ray showed mild cardiomegaly interstitial pulmonary edema similar to previous with a small left sided pleural effusion. Patient received 2 doses of nitroglycerin prior to her arrival, and her pain resolved. She also received full dose aspirin. 4mg of morphine was also given to her prior to transport to the medical floor. Upon my assessment patient is arousable but somnolent. She does tell me that she has no pain currently. She denies shortness of breath, nausea, diarrhea and abdominal pain. She also confirmed with me that her code status was DNR/CCA/DNI. Past Med Surg Social Fam HX - Past Medical History Medical history: atrial fibrillation, CHF, COPD, dementia, diabetes, GI bleed, hyperlipidemia, hypertension, myocardial infarction, peripheral artery disease, renal disease, other Additional medical history: right ureteral obstruction Psychiatric history: anxiety, depression, schizophrenia, previous psychiatric hospitalization - Past Surgical History Surgical History: angioplasty/stent, appendectomy, cholecystectomy, coronary bypass (CABG), hysterectomy, knee replacement, other, IVC filter Additional surgical history: left arm fistulogram with covered stent placement left basilic vein 2016. Hysterectomy 1996. kidney stones 1996. appendix 1970. tonsils unsure date. double Bypass 1998. stents x5 unsure date. right wrist 2016 - Social History Smoking Status: Current every day smoker Smokeless Tobacco Status: No Alcohol use: none Drug use: none - Family History Father History Unknown: Yes Family Member Ethnicity: Non- Living Status: Hx Family Cardiac Disorders: Yes Hx Family Respiratory Disorders: Yes Hx Family Cancer: Yes (Polycythemia) Hx Family Endocrine Disorder: Yes (DM) Mother History Unknown: Yes Family Member Ethnicity: Non- Living Status: Still Living Hx Family Cardiac Disorders: Yes Hx Family Respiratory Disorders: Yes (asthma, COPD) Brother History Unknown: Yes Adopted: No Family Member Ethnicity: Non- Living Status: Still Living Hx Family Cardiac Disorders: No Hx Family Respiratory Disorders: No Hx Family Cancer: No Hx Family GI Disorders: No Hx Family Endocrine Disorder: No Hx Family Neuromuscular Disorders: No Hx Family Neurologic Disorders: No Hx Family HEENT Disorders: No Hx Family Autoimmune Disorders: No Sister History Unknown: Yes Adopted: No Family Member Ethnicity: Non- Living Status: Still Living Hx Family Cardiac Disorders: Yes Hx Family Respiratory Disorders: No Hx Family Cancer: No Hx Family GI Disorders: No Hx Family Endocrine Disorder: Yes Hx Family Neuromuscular Disorders: No Hx Family Neurologic Disorders: No Hx Family HEENT Disorders: No Hx Family Autoimmune Disorders: No Internal Medicine - H&P: Meds Colestipol HCl [Colestid] 1 gm PO BID 06/12/15 [History] Calcium Acetate [Phos-LO] 1,334 mg PO TIDWM 09/06/16 [History] ARIPiprazole [Abilify] 10 mg PO DAILY 09/13/17 [History] Aspirin Enteric Coated [Aspirin EC] 81 mg PO DAILY 09/13/17 [History] Budesonide/Formoterol 160/4.5 [Symbicort 160/4.5] 2 puff IH BIDR 09/13/17 [ History] Cholecalciferol (Vitamin D3) [Vitamin D3] 50,000 unit PO TH 09/13/17 [History] Sevelamer [Renvela] 800 mg PO DAILY 09/13/17 [History] Albuterol Neb [AccuNeb] 0.63 mg IH Q6H PRN 10/18/17 [History] Acetaminophen [Tylenol] 650 mg PO Q6HR PRN tablet 12/14/17 [Rx] amLODIPine [Norvasc] 5 mg PO DAILY 12/30/17 [History] Clopidogrel [Plavix] 75 mg PO DAILY 02/03/18 [History] Rosuvastatin Calcium [Crestor] 20 mg PO DAILY 02/27/18 [History] Amitriptyline [Elavil] 50 mg PO HS tablet 03/24/18 [Rx] Metoclopramide [Reglan] 5 mg PO TIDAC 3 Days #9 ud.liq 04/08/18 [Rx] Sucralfate [Carafate] 1 gm PO QIDAC 3 Days #12 tablet 04/08/18 [Rx] Renal Vitamin [Renal Caps Softgel] 1 mg PO DAILY capsule 04/17/18 [Rx] Carvedilol 12.5 mg PO BID 04/28/18 [History] Darbepoetin [Aranesp] 60 mcg SQ TH 04/28/18 [History] Insulin DETEMIR [Levemir] 28 unit SQ HS 04/28/18 [History] Insulin LISPRO [HumaLOG] 2 - 10 units SQ TIDWM 04/28/18 [History] Lactobacillus Acidophilus/Fos [Acidophilus Probiotic Tablet] 1 tab PO DAILY [History] Omeprazole [PriLOSEC] 20 mg PO DAILY 04/28/18 [History] Ondansetron HCl [Zofran] 4 mg PO Q12H PRN 04/28/18 [History] Alginate Dressing/Cme-Cell [Maxorb 4"X8" Dressing] 1 each TP DAILY #30 bandage 06/17/18 [Rx] Gentamicin Oint [Garamycin] 1 appl TP BID #1 tube 06/17/18 [Rx] Silver/Calcium Alginate [Algicell Ag 4"X8" Dressing] 1 each TP DAILY #30 bandage 06/17/18 [Rx] Gabapentin [Neurontin] 100 mg PO TID 2 Days #6 capsule 06/18/18 [Rx] OxyCODONE/APAP 5/325 [Percocet 5/325 MG] 1 each PO Q8HR PRN 2 Days #6 tablet 05/28 [Rx] 3 Allergy/AdvReac Type Severity Reaction Status Date / Time piperacillin [From Zosyn] Allergy Anaphylaxis Verified 06/11/18 13:33 tazobactam [From Zosyn] Allergy Anaphylaxis Verified 06/11/18 13:33 All Systems PM: A 10-system review of systems was performed and is negative for pertinent findings except as documented above in the HPI. - Constitutional Vitals: Temp Pulse Resp BP Pulse Ox 97.5 F L 80 16 116/71 100 07/03/18 05:15 07/03/18 05:15 07/03/18 05:15 07/03/18 05:15 07/03/18 05:15 General appearance: Absent: answers questions appropriately Exam: Sleepy, would answer questions and is arousable with calling out patient's name and shaking arm - Head Head exam: Present: normal inspection - Respiratory Respiratory exam: Present: decreased breath sounds. Absent: respiratory distress, wheezes - Cardiovascular Cardiovascular exam: Present: RRR. Absent: diastolic murmur, systolic murmur - GI/Abdominal GI/Abdominal exam: Present: normal bowel sounds, soft. Absent: tenderness - Extremities Exam Extremities exam: Present: pedal edema, warm, radial pulses palpable and symmetrical. Absent: tenderness Additional comments: 2+ pitting edema bilaterally - Neurological Exam Neurological exam: Present: no focal deficits, strengths equal and symetr throughout. Absent: motor sensory deficit, facial droop, speech deficit - Skin Skin exam: Present: dry, warm Additional comments: Skin has multiple bruises over upper extremities, lower extremities appear erythematous Internal Med - H&P Results - Labs CBC & Chem 7: 07/02/18 21:48 07/02/18 21:48 - Assessment and plan (1) Chest pain Current Visit: No Status: Acute Assessment and plan: Started after dialysis. Currently resolved. Cardiac cath in 12/26, stress test in 12/26 and Echo most recently in 03/28 that showed EF of 60%, with atypical septal motion consitent with post-operative status. 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 Cardiology consult in AM Qualifiers: Chest pain type: unspecified Qualified Code(s): R07.9 - Chest pain, unspecified (2) ESRD (end stage renal disease) Current Visit: No Status: Chronic Assessment and plan: On dialysis, Wednesday, and Wednesday. Continue dialysis Nephrology consult to get her back on dialysis schedule while here in hospital. (3) Diabetes Current Visit: No Status: Chronic Assessment and plan: Continue basal insulin, with medium dose sliding scale insulin Q6H. Monitor sugars Q6H. Qualifiers: Diabetes mellitus type: type 2 Diabetes mellitus senior care insulin use: with long term care pharmacist use Diabetes mellitus complication status: with hyperglycemia Qualified Code(s): E11.65 - Type 2 diabetes mellitus with hyperglycemia; Z79.4 - roasterman (current) use of insulin (4) Hospitalization within last 30 days Current Visit: Yes Status: Acute Assessment and plan: Discharged 06/18/18. Treated for: Hospital acquired pneumonia Acute respiratory failure Cellulitis of right lower extremity ESRD diabetes Stage 3 decubitus ulcer of sacral region Afib Complicated UTI Patient completed antibiotic therapy for the above. No concern for sepsis or infection at this time. Continue to monitor. Will continue wound care for sacral ulceration as performed previously. - Time Spent With Patient Total time spent is greater than 50% in coordination of care (as documented) at patient's floor/unit and/or counseling patient: Greater than 35 minutes
[2018-07-03] MEDS ORDERED: Dextrose Gel 15 GM/37.5 ML TUBE PO PRN ×2 (07:42)
[2018-07-03] MEDS ORDERED: *HR* Dextrose 50 % in Water (Syg) 50 ML SYRINGE IVP PRN (07:42)
[2018-07-03] MEDS ORDERED: D5% in Water 1,000 ML IVC PRN (07:42)
[2018-07-03 07:44] LABS: Hematocrit 34.2 % (35.3-44.9); Hemoglobin 10.2 g/dL (11.5-15.4); Mean Corpuscular HGB Conc 29.8 g/dL (31.6-35.5); Mean Corpuscular Hemoglobin 25.4 pg (28.0-33.3); Mean Corpuscular Volume 85.3 fL (83.0-100.0); Mean Platelet Volume 12.2 fL (9.4-12.4); Platelet Count 130 K/mcL (140-400); Red Blood Count 4.01 M/mcL (3.82-4.97); Red Cell Distribution Width 17.9 % (11.5-14.5)
[2018-07-03 08:03] LABS: Calcium 8.8 mg/dL (8.6-10.3); Potassium 3.7 mEq/L (3.5-5.1)
[2018-07-03] MEDS: *HR* OxyCODONE/APAP 5/325 TABLET PO PRN ×2 (10:49→23:59)
[2018-07-03] MEDS ORDERED: Insulin LISPRO 300 UNITS/3 ML VIAL SQ SCH ×2 (12:00→21:00)
--- NOTE | 2018-07-03 13:02 | Cardiology Consult Note ---
Date of Encounter: 07/03/18 Time of Encounter: 12:29 Assessment and Plan (1) CAD (coronary artery disease) Current Visit: No Status: Acute Troponin is negative x 3. EKG shows atrial fibrillation, no acute ST-T changes. Patient has residual coronary artery disease which have been deemed not amenable to angioplasty or further bypass grafts. We will optimize medical management by increasing the dose of carvedilol to 25 mg twice daily, as she is not adequately beta blocked. If blood pressure tolerates, imdur 30mg daily, can also be added to her anti-ischemic therapy. Continue aspirin 81 mg daily, Plavix 75 mg daily, Statin. Qualifiers: Coronary Disease-Associated Artery/Lesion type: unspecified vessel or lesion type [place] vs. transplanted heart: unspecified whether [place] or transplanted heart Associated angina: without angina Qualified Code(s): I25.10 - Atherosclerotic heart disease of [place] coronary artery without angina pectoris (2) End-stage renal disease (ESRD) Current Visit: No Status: Acute On dialysis. Follow-up with nephrology. (3) Atrial fibrillation Current Visit: Yes Status: Chronic Consider increasing Toprol-XL 50 mg daily to 100 mg daily. Can hold dose of beta vera on the day of dialysis in other to prevent hypotension during dialysis. No anticoagulation because of GI bleed. Qualifiers: Atrial fibrillation type: permanent Qualified Code(s): I48.2 - Chronic atrial fibrillation (4) Obesity Current Visit: Yes Status: Acute Needs to lose weight. Qualifiers: Obesity type: unspecified obesity type Serious obesity comorbidity presence : with serious comorbidity Body mass index: BMI 40.0-44.9 Qualified Code(s) : E66.01 - Morbid (severe) obesity due to excess calories; Z68.41 - Body mass index (BMI) 40.0-44.9, adult Discussion w patient/family: The assessment and plan as outlined above was discussed with the patient and/or family members who expressed understanding and agreement. All questions were answered. Thank you for involving us in the care of your patient. Please call with any questions. History of Present Illness Consult date: 07/03/18 Requesting physician: Etelvina Gan Consult reason: Chest pain History of present illness: Ms. Riley is a pleasant 63 year old female with CAD s/p CABG in 2001, s/p previous PCI, ESRD on dialysis MWF, COPD, T2DM , HTN, atrial fibrillation not on oral anticoagulation due to GI bleed history and chronic venous stasis dermatitis admitted for chest pain radiating to her left arm after undergoing dialysis yesterday. It lasted a few minutes. No nausea, diaphoresis, or palpitations. She is mostly sedentary and could not tell me if she experiences chest pain with activity. She had a LHC 12/2017 and 10/2016 that showed stable CAD. No intervention at that time. There was severe one vessel CAD with patent SVG to PDA graft to that area. 50-60% stenosis in the pLAD, 50% stenosis mCX, 99% stenosis pRCA, 90% stenosis mRCA. SVG-PDA was patent. TTE 12/17/15:Normal LV systolic function, LVEF 55-60%. Mild concentric left ventricular hypertrophy. Mild left ventricular diastolic dysfunction. Normal right ventricular structure and function. Mildly dilated left atrium. Mild aortic regurgitation. Mild mitral regurgitation. No evidence of pulmonary hypertension Past Med Surg Social Fam HX - Past Medical History Medical history: atrial fibrillation, CHF, COPD, dementia, diabetes, GI bleed, hyperlipidemia, hypertension, myocardial infarction, peripheral artery disease, renal disease, other Additional medical history: right ureteral obstruction Psychiatric history: anxiety, depression, schizophrenia, previous psychiatric hospitalization - Past Surgical History Surgical History: angioplasty/stent, appendectomy, cholecystectomy, coronary bypass (CABG), hysterectomy, knee replacement, other, IVC filter Additional surgical history: left arm fistulogram with covered stent placement left basilic vein 2016. Hysterectomy 1996. kidney stones 1996. appendix 1970. tonsils unsure date. double Bypass 1998. stents x5 unsure date. right wrist 2016 - Social History Smoking Status: Current every day smoker Smokeless Tobacco Status: No Alcohol use: none Drug use: none - Family History Father History Unknown: Yes Family Member Ethnicity: Non- Living Status: Hx Family Cardiac Disorders: Yes Hx Family Respiratory Disorders: Yes Hx Family Cancer: Yes (Polycythemia) Hx Family Endocrine Disorder: Yes (DM) Mother History Unknown: Yes Family Member Ethnicity: Non- Living Status: Still Living Hx Family Cardiac Disorders: Yes Hx Family Respiratory Disorders: Yes (asthma, COPD) Brother History Unknown: Yes Adopted: No Family Member Ethnicity: Non- Living Status: Still Living Hx Family Cardiac Disorders: No Hx Family Respiratory Disorders: No Hx Family Cancer: No Hx Family GI Disorders: No Hx Family Endocrine Disorder: No Hx Family Neuromuscular Disorders: No Hx Family Neurologic Disorders: No Hx Family HEENT Disorders: No Hx Family Autoimmune Disorders: No Sister History Unknown: Yes Adopted: No Family Member Ethnicity: Non- Living Status: Still Living Hx Family Cardiac Disorders: Yes Hx Family Respiratory Disorders: No Hx Family Cancer: No Hx Family GI Disorders: No Hx Family Endocrine Disorder: Yes Hx Family Neuromuscular Disorders: No Hx Family Neurologic Disorders: No Hx Family HEENT Disorders: No Hx Family Autoimmune Disorders: No Medications and Allergies Colestipol HCl [Colestid] 1 gm PO BID 06/12/15 [History] Calcium Acetate [Phos-LO] 1,334 mg PO TIDWM 09/06/16 [History] ARIPiprazole [Abilify] 10 mg PO DAILY 09/13/17 [History] Aspirin Enteric Coated [Aspirin EC] 81 mg PO DAILY 09/13/17 [History] Budesonide/Formoterol 160/4.5 [Symbicort 160/4.5] 2 puff IH BIDR 09/13/17 [ History] Cholecalciferol (Vitamin D3) [Vitamin D3] 50,000 unit PO TH 09/13/17 [History] Sevelamer [Renvela] 800 mg PO DAILY 09/13/17 [History] Albuterol Neb [AccuNeb] 0.63 mg IH Q6H PRN 10/18/17 [History] Acetaminophen [Tylenol] 650 mg PO Q6HR PRN tablet 12/14/17 [Rx] amLODIPine [Norvasc] 5 mg PO DAILY 12/30/17 [History] Clopidogrel [Plavix] 75 mg PO DAILY 02/03/18 [History] Rosuvastatin Calcium [Crestor] 20 mg PO DAILY 02/27/18 [History] Amitriptyline [Elavil] 50 mg PO HS tablet 03/24/18 [Rx] Metoclopramide [Reglan] 5 mg PO TIDAC 3 Days #9 ud.liq 04/08/18 [Rx] Sucralfate [Carafate] 1 gm PO QIDAC 3 Days #12 tablet 04/08/18 [Rx] Renal Vitamin [Renal Caps Softgel] 1 mg PO DAILY capsule 04/17/18 [Rx] Carvedilol 12.5 mg PO BID 04/28/18 [History] Darbepoetin [Aranesp] 60 mcg SQ TH 04/28/18 [History] Insulin DETEMIR [Levemir] 28 unit SQ HS 04/28/18 [History] Insulin LISPRO [HumaLOG] 2 - 10 units SQ TIDWM 04/28/18 [History] Lactobacillus Acidophilus/Fos [Acidophilus Probiotic Tablet] 1 tab PO DAILY [History] Omeprazole [PriLOSEC] 20 mg PO DAILY 04/28/18 [History] Ondansetron HCl [Zofran] 4 mg PO Q12H PRN 04/28/18 [History] Alginate Dressing/Cme-Cell [Maxorb 4"X8" Dressing] 1 each TP DAILY #30 bandage 06/17/18 [Rx] Gentamicin Oint [Garamycin] 1 appl TP BID #1 tube 06/17/18 [Rx] Silver/Calcium Alginate [Algicell Ag 4"X8" Dressing] 1 each TP DAILY #30 bandage 06/17/18 [Rx] Gabapentin [Neurontin] 100 mg PO TID 2 Days #6 capsule 06/18/18 [Rx] OxyCODONE/APAP 5/325 [Percocet 5/325 MG] 1 each PO Q8HR PRN 2 Days #6 tablet 05/28 [Rx] 3 Allergy/AdvReac Type Severity Reaction Status Date / Time piperacillin [From Zosyn] Allergy Anaphylaxis Verified 06/11/18 13:33 tazobactam [From Zosyn] Allergy Anaphylaxis Verified 06/11/18 13:33 All Systems Review: The remainder of the systems were reviewed and are negative - Constitutional Constitutional: no chills, no fever(s) - EENT Eyes: no loss of vision - Cardiovascular Cardiovascular: as per HPI, leg edema, no rapid heart rate, no syncope - Respiratory Respiratory: no cough - Gastrointestinal Gastrointestinal: no abdominal pain, no dysphagia - Genitourinary Genitourinary: no dysuria - Neurological Neurological: no abnormal speech - Psychiatric Psychiatric: no hallucinations - Hematological/Lymphatic Hematologic/Lymphatic: no easy bleeding Physical Examination Vital Signs, Last 4 Hours Temp Pulse Resp BP Pulse Ox 07/03/18 10:49 97.9 F 85 18 133/77 98 General: Conversant, No Apparent Distress HEENT: Atraumatic Neck: No JVD, Normal carotid pulses Cardiac: Reg Rate and Rhythm, Normal S1 and S2 Lungs: Other (Bibasilar rales) Neuro: Alert and responsive Abdomen: Soft, Non-Tender Musculoskeletal: Other (Left upper arm AV fistula) Extremities: Other (Chronic venous stasis with bilateral pedal edema) Results 07/03/18 06:52 07/03/18 06:52 Lab Results 07/03/18 07/03/18 07/03/18 06:52 06:52 06:52 WBC 6.8 Hgb 10.2 L Hct 34.2 L Plt Count 130 L Sodium 133 L Potassium 3.7 Chloride 99 Carbon Dioxide 27 BUN 22 Creatinine 3.12 H Glucose 253 H Calcium 8.8 Troponin I < 0.03 Consult Discharge Plan - Plan Referrals: Tristen Quintana MD [Primary Care Provider] -
--- NOTE | 2018-07-03 14:51 | Event Note ---
Date of Encounter: 07/03/18 Time of Encounter: 14:49 Patient evaluated earlier today. Complaints of chest pain, abdominal pain and back pain. No shortness of breath. No palpitations. Will consult cardiology to optimize medical management for her coronary artery disease. Troponins have been negative. Anticipate discharge tomorrow.
[2018-07-03] MEDS: Insulin LISPRO 300 UNITS/3 ML VIAL SQ SCH (17:26)
[2018-07-03] MEDS ORDERED: Insulin DETEMIR 100 UNIT/ML X5UNITS SQ SCH (21:00)
[2018-07-04] MEDS: *HR* OxyCODONE/APAP 5/325 TABLET PO PRN (08:07)
[2018-07-04] MEDS: Insulin LISPRO 300 UNITS/3 ML VIAL SQ SCH ×2 (08:08→12:46)
[2018-07-04] MEDS ORDERED: Aspirin Enteric Coated 81 MG Tablet PO SCH (09:00)
[2018-07-04 11:03] VITALS: BP 142/77
--- NOTE | 2018-07-04 11:04 | Discharge Summary ---
- NOTES TO OUTPATIENT PROVIDER Notes to Outpatient Provider: Patient with history of CHF COPD, diabetes, atrial fibrillation, hypertension, end-stage renal disease on hemodialysis was seen in the ER initially with complaints of chest pain. She was hospitalized for further evaluation and had troponins checked which were negative. Cardiology was then consulted to optimize medication regimen. Patient is now chest pain-free and stable to be discharged home. Per cardiology recommendations, will start Imdur 30 mg daily. Continue aspirin and Plavix. 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 Riley is a 63 year old female Patient with history of CHF COPD, diabetes, atrial fibrillation, hypertension, end-stage renal disease on hemodialysis was seen in the ER initially with complaints of chest pain. She was hospitalized for further evaluation and had troponins checked which were negative. Cardiology was then consulted to optimize medication regimen. Patient is now chest pain-free and stable to be discharged home. Per cardiology recommendations, will start Imdur 30 mg daily. Continue aspirin and Plavix. Discharge discussed with: patient, nurse - Time Spent with Patient Total time spent providing and/or coordinating discharge services: Less than 30 minutes (25 min) - Discharge Medications Prescriptions: Isosorbide MONOnitrate (24 HR) [Imdur] 30 mg PO DAILY #30 tab.er.24h Home Medications: Colestipol HCl [Colestid] 1 gm PO BID 06/12/15 [History] Calcium Acetate [Phos-LO] 1,334 mg PO TIDWM 09/06/16 [History] ARIPiprazole [Abilify] 10 mg PO DAILY 09/13/17 [History] Aspirin Enteric Coated [Aspirin EC] 81 mg PO DAILY 09/13/17 [History] Budesonide/Formoterol 160/4.5 [Symbicort 160/4.5] 2 puff IH BIDR 09/13/17 [ History] Cholecalciferol (Vitamin D3) [Vitamin D3] 50,000 unit PO TH 09/13/17 [History] Sevelamer [Renvela] 800 mg PO DAILY 09/13/17 [History] Albuterol Neb [AccuNeb] 0.63 mg IH Q6H PRN 10/18/17 [History] amLODIPine [Norvasc] 5 mg PO DAILY 12/30/17 [History] Clopidogrel [Plavix] 75 mg PO DAILY 02/03/18 [History] Rosuvastatin Calcium [Crestor] 20 mg PO DAILY 02/27/18 [History] Amitriptyline [Elavil] 50 mg PO HS tablet 03/24/18 [Rx] Metoclopramide [Reglan] 5 mg PO TIDAC 3 Days #9 ud.liq 04/08/18 [Rx] Sucralfate [Carafate] 1 gm PO QIDAC 3 Days #12 tablet 04/08/18 [Rx] Renal Vitamin [Renal Caps Softgel] 1 mg PO DAILY capsule 04/17/18 [Rx] Carvedilol 12.5 mg PO BID 04/28/18 [History] Darbepoetin [Aranesp] 60 mcg SQ TH 04/28/18 [History] Insulin DETEMIR [Levemir] 28 unit SQ HS 04/28/18 [History] Insulin LISPRO [HumaLOG] 2 - 10 units SQ TIDWM 04/28/18 [History] Lactobacillus Acidophilus/Fos [Acidophilus Probiotic Tablet] 1 tab PO DAILY [History] Omeprazole [PriLOSEC] 20 mg PO DAILY 04/28/18 [History] Ondansetron HCl [Zofran] 4 mg PO Q12H PRN 04/28/18 [History] Gentamicin Oint [Garamycin] 1 appl TP BID #1 tube 06/17/18 [Rx] Silver/Calcium Alginate [Algicell Ag 4"X8" Dressing] 1 each TP DAILY #30 bandage 06/17/18 [Rx] Gabapentin [Neurontin] 100 mg PO TID 2 Days #6 capsule 06/18/18 [Rx] OxyCODONE/APAP 5/325 [Percocet 5/325 MG] 1 each PO Q8HR PRN 2 Days #6 tablet 05/28 [Rx] Isosorbide MONOnitrate (24 HR) [Imdur] 30 mg PO DAILY #30 tab.er.24h 07/04/18 [ Rx] Allergies/Adverse Reactions: 3 Allergy/AdvReac Type Severity Reaction Status Date / Time piperacillin [From Zosyn] Allergy Anaphylaxis Verified 06/11/18 13:33 tazobactam [From Zosyn] Allergy Anaphylaxis Verified 06/11/18 13:33 Date of admission: 07/02/18 23:49 Primary care physician: Tristen Quintana MD Consults: 07/03/18 07:40 Consult to Cardiology [CONS] Routine Comment: Consulting Provider: Card[facility] [place] Reason for Consult: Chest pain; Heart cath in December showed CAD. Time Notified: 07:41 Call Completed: Yes Discharging clinician: Etelvina Gan Anticipated date of discharge: 07/04/18 - Constitutional Vitals: Temp Pulse Resp BP Pulse Ox 98.8 F 72 16 157/72 97 07/04/18 06:45 07/04/18 06:45 07/04/18 06:45 07/04/18 06:45 07/04/18 06:45 General appearance: Present: cooperative, A&O X 3, pleasant, answers questions appropriately Exam: . - Respiratory Respiratory exam: Present: CTAB. Absent: accessory muscle use, rales, rhonchi, wheezes - Cardiovascular Cardiovascular exam: Present: RRR, +S1, +S2. Absent: diastolic murmur, gallop, rubs, systolic murmur - Extremities Exam Extremities exam: Present: pedal edema, warm, radial pulses palpable and symmetrical. Absent: calf tenderness, cyanotic - Patient Status Disposition: Transfer SNF Condition: Good Functional capacity at discharge: uses cane/walker Overall status at discharge: patient is progressing back to baseline - Discharge Instructions Instructions: Isosorbide Mononitrate (By mouth), Atrial Fibrillation (DC), Diabetes Mellitus Type 2 in Adults (DC) Follow Up With: Tristen Quintana MD [Primary Care Provider] - (in 1-2 weeks) - Diet and Activity Activity: as per physical therapy Diet: diabetic diet, low fat, low cholesterol, low salt diet
--- NOTE | 2018-07-04 11:26 | Physician Discharge Referral ---
ExtendedCare Referral Info Provider in Charge after Transfer: PCP Institutional Level of Care: Skilled - Diagnosis (1) Chest pain Priority: Primary Status: Resolved (2) DMII (diabetes mellitus, type 2) Priority: Secondary Status: Chronic (3) ESRD (end stage renal disease) on dialysis Priority: Secondary Status: Chronic Prognosis: Fair Aware of Diagnosis: Patient Aware of Prognosis: Patient - Transfer Medications Prescriptions: Isosorbide MONOnitrate (24 HR) [Imdur] 30 mg PO DAILY #30 tab.er.24h Home Medications: Colestipol HCl [Colestid] 1 gm PO BID 06/12/15 [History] Calcium Acetate [Phos-LO] 1,334 mg PO TIDWM 09/06/16 [History] ARIPiprazole [Abilify] 10 mg PO DAILY 09/13/17 [History] Aspirin Enteric Coated [Aspirin EC] 81 mg PO DAILY 09/13/17 [History] Budesonide/Formoterol 160/4.5 [Symbicort 160/4.5] 2 puff IH BIDR 09/13/17 [ History] Cholecalciferol (Vitamin D3) [Vitamin D3] 50,000 unit PO TH 09/13/17 [History] Sevelamer [Renvela] 800 mg PO DAILY 09/13/17 [History] Albuterol Neb [AccuNeb] 0.63 mg IH Q6H PRN 10/18/17 [History] Acetaminophen [Tylenol] 650 mg PO Q6HR PRN tablet 12/14/17 [Rx] amLODIPine [Norvasc] 5 mg PO DAILY 12/30/17 [History] Clopidogrel [Plavix] 75 mg PO DAILY 02/03/18 [History] Rosuvastatin Calcium [Crestor] 20 mg PO DAILY 02/27/18 [History] Amitriptyline [Elavil] 50 mg PO HS tablet 03/24/18 [Rx] Metoclopramide [Reglan] 5 mg PO TIDAC 3 Days #9 ud.liq 04/08/18 [Rx] Sucralfate [Carafate] 1 gm PO QIDAC 3 Days #12 tablet 04/08/18 [Rx] Renal Vitamin [Renal Caps Softgel] 1 mg PO DAILY capsule 04/17/18 [Rx] Carvedilol 12.5 mg PO BID 04/28/18 [History] Darbepoetin [Aranesp] 60 mcg SQ TH 04/28/18 [History] Insulin DETEMIR [Levemir] 28 unit SQ HS 04/28/18 [History] Insulin LISPRO [HumaLOG] 2 - 10 units SQ TIDWM 04/28/18 [History] Lactobacillus Acidophilus/Fos [Acidophilus Probiotic Tablet] 1 tab PO DAILY [History] Omeprazole [PriLOSEC] 20 mg PO DAILY 04/28/18 [History] Ondansetron HCl [Zofran] 4 mg PO Q12H PRN 04/28/18 [History] Alginate Dressing/Cme-Cell [Maxorb 4"X8" Dressing] 1 each TP DAILY #30 bandage 06/17/18 [Rx] Gentamicin Oint [Garamycin] 1 appl TP BID #1 tube 06/17/18 [Rx] Silver/Calcium Alginate [Algicell Ag 4"X8" Dressing] 1 each TP DAILY #30 bandage 06/17/18 [Rx] Gabapentin [Neurontin] 100 mg PO TID 2 Days #6 capsule 06/18/18 [Rx] OxyCODONE/APAP 5/325 [Percocet 5/325 MG] 1 each PO Q8HR PRN 2 Days #6 tablet 05/28 [Rx] Isosorbide MONOnitrate (24 HR) [Imdur] 30 mg PO DAILY #30 tab.er.24h 07/04/18 [ Rx] Allergies/Adverse Reactions: 3 Allergy/AdvReac Type Severity Reaction Status Date / Time piperacillin [From Zosyn] Allergy Anaphylaxis Verified 06/11/18 13:33 tazobactam [From Zosyn] Allergy Anaphylaxis Verified 06/11/18 13:33 - Respiratory Orders Oxygen / L per min (in 1-2 weeks) Smoking Cessation: Smoking cessation has been advised. For more information, call the [place] [employer] Quit Line at 9-310-AIKR-NOW. - Ancillary Orders May consult with Dentist, Rn Hemodialysis Charge, Keypunch Operators Supervisor PRN - Advance Directives Code Status: DNR-Arrest/Don't Intubate - Rehabiliation Orders Rehab Potential: Fair Rehab Orders: Evaluation for Physical Therapy, Evaluation for Occupational Therapy - Diet Orders No Concentrated Sweets (with DM), Cardiac CERTIFICATION: I certify that the transfer of the above named patient to an Extended Care Facility is necessary for the continuing treatment of the diagnosis listed. The above information is true and accurate reflection of patient's current condition. Confidential - Redisclosure prohibited without a patient's written consent.
[2018-07-04] MEDS ORDERED: Isosorbide MONOnitrate (24 HR) 30 MG TAB.ER.24H PO SCH (11:30)
--- NOTE | 2018-07-04 12:00 | Event Note ---
Date of Encounter: 07/04/18 Time of Encounter: 11:58 Patient seen and examined earlier this morning. According to documents, patient now being discharged. Cardiology notes reviewed from yesterday. Significant history of CAD, prior CABG. Recent left heart catheterization 12/2017, medical therapy recommended. See consultation from yesterday. LVEF preserved. Cardiology has recommended medical therapy for CAD. Regarding atrial fibrillation, patient deemed a poor Coumadin candidate secondary to prior GI bleed. She is on aspirin and Plavix for CAD. No further inpatient cardiology recommendations appear to be necessary at this time. Recommend outpatient cardiology followup. Thanks, Keshav Johnson DO, FACC
--- NOTE | 2018-07-04 17:24 | Electrocardiograph Report ---
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
== END 2018-07-04 14:31 ==
LOC: 2ANU 20:59 → EMEROOARM 20:59 → SUATTDRO 23:49 → 2ANU 07-03 00:35
PROVIDERS: ADMIT Pediatrics; ATTEND Internal Medicine

== ENCOUNTER 2018-07-05 09:47 | Observation (INO) ==
[2018-07-05] MEDS ORDERED: Ipratropium/Albuterol Neb 3 ML IH ONE (10:42)
[2018-07-05 11:25] LABS: VBG HCO3 26 mEq/L (21-27); VBG PCO2 34 mmHg (41-51); VBG PH 7.49 pH Units (7.32-7.42); VBG PO2 139 mmHg (25-50)
[2018-07-05 11:28] LABS: Basophils % 0.6 %; Eosinophils # 0.1 K/mcL (0.0-0.6); Eosinophils % 1.1 %; Hematocrit 33.2 % (35.3-44.9); Hemoglobin 9.7 g/dL (11.5-15.4); Immature Granulocytes % 0.6 % (0-4); Lymphocytes # 0.9 K/mcL (0.6-4.6); Lymphocytes % 13.3 %; Mean Corpuscular HGB Conc 29.2 g/dL (31.6-35.5); Mean Corpuscular Hemoglobin 24.7 pg (28.0-33.3); Mean Corpuscular Volume 84.7 fL (83.0-100.0); Mean Platelet Volume 11.6 fL (9.4-12.4); Monocytes # 0.6 K/mcL (0.0-1.3); Monocytes % 9.1 %; Neutrophils # 4.9 K/mcL (1.6-8.9); Platelet Count 133 K/mcL (140-400); Red Blood Count 3.92 M/mcL (3.82-4.97); Segmented Neutrophils % 75.3 %
[2018-07-05 11:45] LABS: Troponin I < 0.03 ng/mL (< 0.04)
[2018-07-05 11:51] LABS: BUN/Creatinine Ratio 7 (6-26); Blood Urea Nitrogen 18 mg/dL (8-23); Calcium 8.2 mg/dL (8.6-10.3); Carbon Dioxide 24 mEq/L (23-29); Chloride 98 mEq/L (98-107); Glucose 198 mg/dL (70-105); Osmolality,Calculated 281 (280-300); Potassium 3.8 mEq/L (3.5-5.1); Sodium 132 mEq/L (136-145); eGFR For Non-African Americans 18 (> 60)
--- NOTE | 2018-07-05 12:49 | Emergency Department Note ---
Disposition Clinical Impression: Hypoxia Dyspnea Qualifiers: Dyspnea type: unspecified Qualified Code(s): R06.00 - Dyspnea, unspecified Chest pain Qualifiers: Chest pain type: unspecified Qualified Code(s): R07.9 - Chest pain, unspecified Disposition: Admitted As Inpatient Condition: Fair General Adult HPI - General Chief complaint: ED Shortness of Breath/Dyspnea Stated complaint: short on breaths Time Seen by Provider: 07/05/18 09:55 Source: patient, EMS Mode of arrival: EMS Limitations: no limitations Nursing Notes Reviewed: Yes Vital Signs Reviewed: Yes - History of Present Illness HPI Narrative: 63-year-old female complex past medical history including end-stage renal disease currently on dialysis Wednesday, , Wednesday presenting to the emergency department chief complaint shortness of breath and chest pain. Patient states she has had worsening shortness of breath at home and has not been able to catch her breath. Patient also states she has had some intermittent chest pain. She is chest pain-free at this time. Patient denies any fevers, productive sputum, abdominal pain, nausea or vomiting. Pain Scale: 9 - Related Data Home Medications Medication Instructions Recorded Confirmed Colestipol HCl [Colestid] 1 gm PO BID 06/12/15 07/05/18 Calcium Acetate [Phos-LO] 1,334 mg PO TIDWM 09/06/16 07/05/18 ARIPiprazole [Abilify] 10 mg PO DAILY 09/13/17 07/05/18 Aspirin Enteric Coated [Aspirin EC] 81 mg PO DAILY 09/13/17 07/05/18 Budesonide/Formoterol 160/4.5 2 puff IH BIDR 09/13/17 07/05/18 [Symbicort 160/4.5] Cholecalciferol (Vitamin D3) 50,000 unit PO TH 09/13/17 07/05/18 [Vitamin D3] Sevelamer [Renvela] 800 mg PO DAILY 09/13/17 07/05/18 Albuterol Neb [AccuNeb] 0.63 mg IH Q6H PRN 10/18/17 07/05/18 amLODIPine [Norvasc] 5 mg PO DAILY 12/30/17 07/05/18 Clopidogrel [Plavix] 75 mg PO DAILY 02/03/18 07/05/18 Rosuvastatin Calcium [Crestor] 20 mg PO DAILY 02/27/18 07/05/18 Carvedilol 12.5 mg PO BID 04/28/18 07/05/18 Darbepoetin [Aranesp] 60 mcg SQ TH 04/28/18 07/05/18 Insulin DETEMIR [Levemir] 28 unit SQ HS 04/28/18 07/05/18 Insulin LISPRO [HumaLOG] 2 - 10 units SQ TIDWM 04/28/18 07/05/18 Lactobacillus Acidophilus/Fos 1 tab PO DAILY 04/28/18 07/05/18 [Acidophilus Probiotic Tablet] Omeprazole [PriLOSEC] 20 mg PO DAILY 04/28/18 07/05/18 Ondansetron HCl [Zofran] 4 mg PO Q12H PRN 04/28/18 07/05/18 Previous Rx's Medication Instructions Recorded Amitriptyline [Elavil] 50 mg PO HS tablet 03/24/18 Metoclopramide [Reglan] 5 mg PO TIDAC 3 Days #9 ud.liq 04/08/18 Sucralfate [Carafate] 1 gm PO QIDAC 3 Days #12 tablet 04/08/18 Renal Vitamin [Renal Caps Softgel] 1 mg PO DAILY capsule 04/17/18 Gentamicin Oint [Garamycin] 1 appl TP BID #1 tube 06/17/18 Gabapentin [Neurontin] 100 mg PO TID 2 Days #6 capsule 06/18/18 OxyCODONE/APAP 5/325 [Percocet 1 each PO Q8HR PRN 2 Days #6 tablet 06/18/18 5/325 MG] Isosorbide MONOnitrate (24 HR) 30 mg PO DAILY #30 tab.er.24h 07/04/18 [Imdur] Allergies Allergy/AdvReac Type Severity Reaction Status Date / Time piperacillin [From Zosyn] Allergy Anaphylaxis Verified 07/05/18 10:03 tazobactam [From Zosyn] Allergy Anaphylaxis Verified 07/05/18 10:03 All systems ED: reviewed and negative except as stated. Constitutional: Denies: fever, chills Eyes: Reports: as per HPI ENT ED: Reports: as per HPI Cardiovascular: Reports: chest pain, dyspnea on exertion. Denies: palpitations Respiratory: Reports: dyspnea. Denies: cough, wheezes Gastrointestinal: Denies: abdominal pain, nausea, vomiting Genitourinary: Reports: as per HPI Musculoskeletal: Reports: as per HPI Integumentary: Reports: as per HPI Neurological: Denies: weakness, numbness, paresthesias Psychiatric: Reports: as per HPI Endocrine: Reports: as per HPI Hematological/Lymphatic: Reports: as per HPI Allergic/Immunologic: Reports: as per HPI Past Medical History - Past Medical History Attestation: Yes The following information was validated with the patient. 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 Absent: tenderness, meningismus - Chest Chest inspection: Present: symmetric chest wall rise. Absent: tenderness, rash - Respiratory Respiratory exam: Present: other (Decreased breath sounds bilaterally) - Cardiovascular Cardiovascular exam: Present: regular rate, normal rhythm, normal heart sounds - Abdominal Exam Abdominal exam: Present: soft, Non-Tender. Absent: distention, guarding, rebound - Extremities Exam Extremities exam: Absent: tenderness - Neurological Exam Neurological exam: Present: alert, oriented X3 - Skin Skin exam: Present: warm, intact Course Course Narrative: 63-year-old female presenting for shortness of breath and chest pain. Patient known dialysis patient. On physical exam she has coarse breath sounds and edema of the bilateral lower extremities. Concern for fluid overload. Patient' s oxygen saturation in the mid 80s on her home oxygen. At this time we will place the patient on BiPAP and perform basic laboratory analysis. Disposition most likely admission the pending results. Patient agrees with this plan. - Reevaluation(s) Reevaluation #1: Patient's laboratory analysis shows elevated BNP otherwise baseline for the patient. Chest x-ray shows mild pulmonary edema. Patient breathing significantly better on BiPAP. She remains alert and oriented 3 in room with stable vital signs. At this time will plan to admit the patient with fluid overload, hypoxia and shortness of breath. Patient agrees with this plan. I spoke with the hospitalist inside contractor sales Dr. Alexandre who agrees to it that the patient at this time. Vital Signs Temperature 97.7 F 07/05/18 09:56 Pulse Rate 82 07/05/18 09:56 Respiratory Rate 20 07/05/18 09:56 Blood Pressure 115/52 07/05/18 09:56 O2 Sat by Pulse Oximetry 95 07/05/18 09:56 Temperature 97.8 F 07/05/18 16:07 Pulse Rate 93 07/05/18 16:07 Respiratory Rate 18 07/05/18 16:07 Blood Pressure 174/52 07/05/18 16:07 O2 Sat by Pulse Oximetry 98 07/05/18 16:07 Oxygen Delivery Oxygen Delivery Nasal Cannula Medical Decision Making - Lab Data Result diagrams: 07/05/18 11:13 07/05/18 11:13 Lab Results 07/05/18 07/05/18 07/05/18 Range/Units 11:13 11:13 11:13 WBC 6.5 (4.3-11.1) K/mcL RBC 3.92 (3.82-4.97) M/mcL Hgb 9.7 L (11.5-15.4) g/dL Hct 33.2 L (35.3-44.9) % MCV 84.7 (83.0-100.0) fL MCH 24.7 L (28.0-33.3) pg MCHC 29.2 L (31.6-35.5) g/dL RDW 18.0 H (11.5-14.5) % Plt Count 133 L (140-400) K/mcL MPV 11.6 (9.4-12.4) fL Immature Gran % 0.6 (0-4) % Seg Neutrophils % 75.3 % Lymphocytes % 13.3 % Monocytes % 9.1 % Eosinophils % 1.1 % Basophils % 0.6 % Neutrophils # 4.9 (1.6-8.9) K/mcL Lymphocytes # 0.9 (0.6-4.6) K/mcL Monocytes # 0.6 (0.0-1.3) K/mcL Eosinophils # 0.1 (0.0-0.6) K/mcL Basophils # 0.0 (0.0-0.2) K/mcL VBG pH (7.32-7.42) pH Units VBG pCO2 (41-51) mmHg VBG pO2 (25-50) mmHg VBG HCO3 (21-27) mEq/L Sodium 132 L (136-145) mEq/L Potassium 3.8 (3.5-5.1) mEq/L Chloride 98 (98-107) mEq/L Carbon Dioxide 24 (23-29) mEq/L BUN 18 (8-23) mg/dL Creatinine 2.65 H (0.60-1.20) mg/dL Est GFR ( Amer) 22 L (> 60) Est GFR (Non-Af Amer) 18 L (> 60) BUN/Creatinine Ratio 7 (6-26) Glucose 198 H (70-105) mg/dL Calculated Osmolality 281 (280-300) Lactic Acid 1.0 (0.5-2.2) mmol/L Calcium 8.2 L (8.6-10.3) mg/dL Troponin I < 0.03 (< 0.04) ng/mL B-Natriuretic Peptide (Less than 100) pg/mL 07/05/18 07/05/18 Range/Units 11:13 11:22 WBC (4.3-11.1) K/mcL RBC (3.82-4.97) M/mcL Hgb (11.5-15.4) g/dL Hct (35.3-44.9) % MCV (83.0-100.0) fL MCH (28.0-33.3) pg MCHC (31.6-35.5) g/dL RDW (11.5-14.5) % Plt Count (140-400) K/mcL MPV (9.4-12.4) fL Immature Gran % (0-4) % Seg Neutrophils % % Lymphocytes % % Monocytes % % Eosinophils % % Basophils % % Neutrophils # (1.6-8.9) K/mcL Lymphocytes # (0.6-4.6) K/mcL Monocytes # (0.0-1.3) K/mcL Eosinophils # (0.0-0.6) K/mcL Basophils # (0.0-0.2) K/mcL VBG pH 7.49 H (7.32-7.42) pH Units VBG pCO2 34 L (41-51) mmHg VBG pO2 139 H (25-50) mmHg VBG HCO3 26 (21-27) mEq/L Sodium (136-145) mEq/L Potassium (3.5-5.1) mEq/L Chloride (98-107) mEq/L Carbon Dioxide (23-29) mEq/L BUN (8-23) mg/dL Creatinine (0.60-1.20) mg/dL Est GFR ( Amer) (> 60) Est GFR (Non-Af Amer) (> 60) BUN/Creatinine Ratio (6-26) Glucose (70-105) mg/dL Calculated Osmolality (280-300) Lactic Acid (0.5-2.2) mmol/L Calcium (8.6-10.3) mg/dL Troponin I (< 0.04) ng/mL B-Natriuretic Peptide 682 H (Less than 100) pg/mL - EKG Data EKG #1 EKG attestation: Yes I reviewed and interpreted this EKG. EKG results narrative: Atrial fibrillation. 82 bpm. QRS 91, QTC 478. No sign of acute ST segment elevation or ischemia. Compared to previous EKG completed on 07/02/2018 no significant changes noted Attestation Statement - Attestation Attestation: I examined this patient and my medical decision-making was reviewed with the Resident Physician. I agree with the documented findings, disposition and treatment plan as described except to the extent set forth below. Acute on chronic respiratory failure. Patient was placed on BiPAP for hypoxia and respiratory failure. Patient will be admitted for further management of heart failure in the setting of ESRD. I spent 35 minutes of critical care time resuscitating this acutely ill patient suffering from hypoxia or respiratory failure. This was excluding billable procedures.
--- NOTE | 2018-07-05 17:21 | Internal Med History&Physical ---
Date of Encounter: 07/05/18 Time of Encounter: 14:00 Internal Medicine - H&P: HPI Chief complaint: Shortness of breath Admitted From: Long-term Nursing Facility Plans for Post Hospital Care: Transfer Front Desk Coordinator Care History of present illness: Patient is a 63-year-old female with past medical history significant for end- stage renal disease on hemodialysis, atrial fibrillation, ischemic cardiomyopathy, COPD with chronic respiratory failure, dementia, diabetes, hyperlipidemia and hypertension who presents to the ER on 07/05/18 due to shortness of breath. Patient is a poor historian but reports of being sent over from the ECF due to shortness of breath. On exam in the ER, patient close to baseline oxygen supplementation at 4 L of nasal cannula and wears 3 L of nasal cannula at the ECF. Venous blood gas in the ER showed a pH of 7.49 and a CO2 of 34. Patient without leukocytosis and afebrile; chest x-ray shows no significant findings of interval change with mild edema and small left pleural effusion. On physical exam, patient was found to have a large stage IV decubitus sacral ulcer strained yellowish/greenish pus that was cultured in the ER. Patient will be admitted to the medical surgical floor for acute on chronic respiratory failure with affected stage III decubitus sacral ulcer. Past Med Surg Social Fam HX - Past Medical History Medical history: atrial fibrillation, CHF, COPD, dementia, diabetes, GI bleed, hyperlipidemia, hypertension, myocardial infarction, peripheral artery disease, renal disease, other Additional medical history: right ureteral obstruction Psychiatric history: anxiety, depression, schizophrenia, previous psychiatric hospitalization - Past Surgical History Surgical History: angioplasty/stent, appendectomy, cholecystectomy, coronary bypass (CABG), hysterectomy, knee replacement, other, IVC filter Additional surgical history: left arm fistulogram with covered stent placement left basilic vein 2016. Hysterectomy 1996. kidney stones 1996. appendix 1970. tonsils unsure date. double Bypass 1998. stents x5 unsure date. right wrist 2017 - Social History Smoking Status: Current every day smoker Smokeless Tobacco Status: No Alcohol use: none Drug use: none - Family History Father Family Member Ethnicity: Non- Living Status: Hx Family Cardiac Disorders: Yes Hx Family Respiratory Disorders: Yes Hx Family Cancer: Yes (Polycythemia) Hx Family Endocrine Disorder: Yes (DM) Mother Family Member Ethnicity: Non- Living Status: Still Living Hx Family Cardiac Disorders: Yes Hx Family Respiratory Disorders: Yes (asthma, COPD) Brother Adopted: No Family Member Ethnicity: Non- Living Status: Still Living Hx Family Cardiac Disorders: No Hx Family Respiratory Disorders: No Hx Family Cancer: No Hx Family GI Disorders: No Hx Family Endocrine Disorder: No Hx Family Neuromuscular Disorders: No Hx Family Neurologic Disorders: No Hx Family HEENT Disorders: No Hx Family Autoimmune Disorders: No Sister Adopted: No Family Member Ethnicity: Non- Living Status: Still Living Hx Family Cardiac Disorders: Yes Hx Family Respiratory Disorders: No Hx Family Cancer: No Hx Family GI Disorders: No Hx Family Endocrine Disorder: Yes Hx Family Neuromuscular Disorders: No Hx Family Neurologic Disorders: No Hx Family HEENT Disorders: No Hx Family Autoimmune Disorders: No Internal Medicine - H&P: Meds Colestipol HCl [Colestid] 1 gm PO BID 06/12/15 [History] Calcium Acetate [Phos-LO] 1,334 mg PO TIDWM 09/06/16 [History] ARIPiprazole [Abilify] 10 mg PO DAILY 09/13/17 [History] Aspirin Enteric Coated [Aspirin EC] 81 mg PO DAILY 09/13/17 [History] Budesonide/Formoterol 160/4.5 [Symbicort 160/4.5] 2 puff IH BIDR 09/13/17 [ History] Cholecalciferol (Vitamin D3) [Vitamin D3] 50,000 unit PO TH 09/13/17 [History] Sevelamer [Renvela] 800 mg PO DAILY 09/13/17 [History] Albuterol Neb [AccuNeb] 0.63 mg IH Q6H PRN 10/18/17 [History] amLODIPine [Norvasc] 5 mg PO DAILY 12/30/17 [History] Clopidogrel [Plavix] 75 mg PO DAILY 02/03/18 [History] Rosuvastatin Calcium [Crestor] 20 mg PO DAILY 02/27/18 [History] Amitriptyline [Elavil] 50 mg PO HS tablet 03/24/18 [Rx] Metoclopramide [Reglan] 5 mg PO TIDAC 3 Days #9 ud.liq 04/08/18 [Rx] Sucralfate [Carafate] 1 gm PO QIDAC 3 Days #12 tablet 04/08/18 [Rx] Renal Vitamin [Renal Caps Softgel] 1 mg PO DAILY capsule 04/17/18 [Rx] Carvedilol 12.5 mg PO BID 04/28/18 [History] Darbepoetin [Aranesp] 60 mcg SQ TH 04/28/18 [History] Insulin DETEMIR [Levemir] 28 unit SQ HS 04/28/18 [History] Insulin LISPRO [HumaLOG] 2 - 10 units SQ TIDWM 04/28/18 [History] Lactobacillus Acidophilus/Fos [Acidophilus Probiotic Tablet] 1 tab PO DAILY [History] Omeprazole [PriLOSEC] 20 mg PO DAILY 04/28/18 [History] Ondansetron HCl [Zofran] 4 mg PO Q12H PRN 04/28/18 [History] Gentamicin Oint [Garamycin] 1 appl TP BID #1 tube 06/17/18 [Rx] Gabapentin [Neurontin] 100 mg PO TID 2 Days #6 capsule 06/18/18 [Rx] OxyCODONE/APAP 5/325 [Percocet 5/325 MG] 1 each PO Q8HR PRN 2 Days #6 tablet 05/28 [Rx] Isosorbide MONOnitrate (24 HR) [Imdur] 30 mg PO DAILY #30 tab.er.24h 07/04/18 [ Rx] 3 Allergy/AdvReac Type Severity Reaction Status Date / Time piperacillin [From Zosyn] Allergy Anaphylaxis Verified 07/05/18 10:03 tazobactam [From Zosyn] Allergy Anaphylaxis Verified 07/05/18 10:03 All Systems PM: A 10-system review of systems was performed and is negative for pertinent findings except as documented above in the HPI. - Constitutional Vitals: Temp Pulse Resp BP Pulse Ox 97.8 F 93 18 174/52 98 07/05/18 16:07 07/05/18 16:07 07/05/18 16:07 07/05/18 16:07 07/05/18 16:07 General appearance: Present: A&O X 3, no acute distress Exam: As below - Eye Eye exam: Present: normal appearance - ENT ENT exam: Present: mucous membranes moist - Respiratory Respiratory exam: Present: CTAB. Absent: accessory muscle use, rales, rhonchi, wheezes - Cardiovascular Cardiovascular exam: Present: RRR, +S1, +S2. Absent: diastolic murmur, gallop, rubs, systolic murmur - GI/Abdominal GI/Abdominal exam: Present: normal bowel sounds, soft, no peritoneal signs. Absent: distended, tenderness - Extremities Exam Extremities exam: Absent: pedal edema - Neurological Exam Neurological exam: Present: oriented X3 - Psychiatric Psychiatric exam: Present: normal mood - Skin Skin exam: Absent: erythema (large stage IV decubitus sacral ulcer ) Internal Med - H&P Results - Labs CBC & Chem 7: 07/05/18 11:13 07/05/18 11:13 - Assessment and plan (1) Acute and chronic respiratory failure Current Visit: No Status: Acute Assessment and plan: On exam in the ER, patient close to baseline oxygen supplementation at 4 L of nasal cannula and wears 3 L of nasal cannula at the ECF. Venous blood gas in the ER showed a pH of 7.49 and a CO2 of 34. Patient essentially at baseline oxygen supplementation; will continue to monitor Qualifiers: Respiratory failure complication: unspecified whether with hypoxia or hypercapnia Qualified Code(s): J96.20 - Acute and chronic respiratory failure , unspecified whether with hypoxia or hypercapnia (2) Decubitus ulcer of sacral region, stage 3 Current Visit: No Status: Chronic Assessment and plan: On physical exam, patient was found to have a large stage III decubitus sacral ulcer strained yellowish/greenish pus that was cultured in the ER. We will start patient on IV cefepime, IV Flagyl and IV vancomycin until culture results known. Wound care consulted and appreciate recommendation. (3) End-stage renal disease (ESRD) Current Visit: No Status: Acute Assessment and plan: Will consult nephrology for hemodialysis management (Tuesdays, and Saturdays) (4) Type 2 diabetes mellitus with ESRD (end-stage renal disease) Current Visit: No Status: Acute Assessment and plan: Continue home medications (5) Anemia in chronic kidney disease, on chronic dialysis Current Visit: No Status: Chronic Assessment and plan: Hemoglobin close to baseline; continue to monitor (6) CAD (coronary artery disease) Current Visit: No Status: Acute Assessment and plan: Stable; continue home medications Qualifiers: Coronary Disease-Associated Artery/Lesion type: unspecified vessel or lesion type [place] vs. transplanted heart: unspecified whether [place] or transplanted heart Associated angina: without angina Qualified Code(s): I25.10 - Atherosclerotic heart disease of [place] coronary artery without angina pectoris (7) Obesity Current Visit: No Status: Acute Assessment and plan: Lifestyle modifications Qualifiers: Obesity type: unspecified obesity type Serious obesity comorbidity presence : with serious comorbidity Body mass index: BMI 40.0-44.9 Qualified Code(s) : E66.01 - Morbid (severe) obesity due to excess calories; Z68.41 - Body mass index (BMI) 40.0-44.9, adult (8) DVT prophylaxis Current Visit: No Status: Acute Assessment and plan: Subcutaneous heparin - Time Spent With Patient Total time spent is greater than 50% in coordination of care (as documented) at patient's floor/unit and/or counseling patient:
[2018-07-05] MEDS ORDERED: Naloxone 0.4 MG/ML INJ IVP PRN (17:38)
[2018-07-05] MEDS ORDERED: Albuterol Neb 0.63 MG/3 ML VIAL IH PRN (17:41)
[2018-07-05] MEDS ORDERED: Ondansetron ODT 4 MG TAB.RAPDIS PO PRN (17:41)
[2018-07-05] MEDS ORDERED: Vancomycin 1 EACH in 0.9 % Sodium Chloride 250 ML IVPB SCH (18:00)
[2018-07-05] MEDS: MetroNIDAZOLE 500 MG/100 ML 500 MG/100 ML BAG IVPB SCH (18:06)
[2018-07-05] MEDS: *HR* Heparin 5,000 UNIT/ML VIAL SQ SCH (18:06)
[2018-07-05] MEDS ORDERED: D5% in Water 1,000 ML IVC PRN (18:21)
[2018-07-05] MEDS ORDERED: Dextrose Gel 15 GM/37.5 ML TUBE PO PRN ×2 (18:21)
[2018-07-05] MEDS ORDERED: *HR* Dextrose 50 % in Water (Syg) 50 ML SYRINGE IVP PRN (18:21)
[2018-07-05] MEDS: Gabapentin 100 MG CAPSULE PO SCH (20:14)
[2018-07-05] MEDS ORDERED: (Colestipol Hcl [Colestid] 1 GM) PO SCH (21:00)
[2018-07-05] MEDS: Benzonatate 100 MG CAPSULE PO PRN (21:14)
[2018-07-05] MEDS: Insulin DETEMIR 100 UNIT/ML X5UNITS SQ SCH (22:18)
[2018-07-05] MEDS: Gentamicin Oint 15 GM TUBE TP SCH ×2 (22:19→23:35)
[2018-07-05] MEDS: Budesonide/Formoterol 160/4.5 1 PUFF INH IH SCH (22:26)
[2018-07-06] MEDS: MetroNIDAZOLE 500 MG/100 ML 500 MG/100 ML BAG IVPB SCH ×3 (01:36→18:39)
[2018-07-06] MEDS: Levalbuterol Neb 1.25 MG/3 ML IH SCH ×5 (01:43→21:58)
[2018-07-06 04:39] LABS: Basophils # 0.1 K/mcL (0.0-0.2); Basophils % 0.8 %; Eosinophils # 0.1 K/mcL (0.0-0.6); Eosinophils % 1.6 %; Hematocrit 33.2 % (35.3-44.9); Hemoglobin 9.9 g/dL (11.5-15.4); Immature Granulocytes % 0.6 % (0-4); Lymphocytes # 1.1 K/mcL (0.6-4.6); Lymphocytes % 16.5 %; Mean Corpuscular HGB Conc 29.8 g/dL (31.6-35.5); Mean Corpuscular Hemoglobin 25.3 pg (28.0-33.3); Mean Corpuscular Volume 84.7 fL (83.0-100.0); Mean Platelet Volume 11.3 fL (9.4-12.4); Monocytes # 0.6 K/mcL (0.0-1.3); Monocytes % 9.6 %; Neutrophils # 4.5 K/mcL (1.6-8.9); Platelet Count 121 K/mcL (140-400); Red Blood Count 3.92 M/mcL (3.82-4.97); Red Cell Distribution Width 17.9 % (11.5-14.5); Segmented Neutrophils % 70.9 %
[2018-07-06] MEDS: *HR* Heparin 5,000 UNIT/ML VIAL SQ SCH ×2 (04:41→18:43)
[2018-07-06 05:00] LABS: Calcium 8.4 mg/dL (8.6-10.3); Potassium 3.8 mEq/L (3.5-5.1)
[2018-07-06] MEDS: *HR* OxyCODONE/APAP 5/325 TABLET PO PRN (05:03)
[2018-07-06] MEDS: Metoclopramide 10 MG/10 ML UD.LIQ PO SCH ×3 (08:34→15:51)
[2018-07-06] MEDS: Lactobacillus 1 EACH CAP.SPRINK PO SCH (08:34)
[2018-07-06] MEDS: amLODIPine 5 MG TABLET PO SCH (08:35)
[2018-07-06] MEDS: Gabapentin 100 MG CAPSULE PO SCH ×3 (08:35→20:34)
[2018-07-06] MEDS: Renal Vitamin 1 CAP CAPSULE PO SCH (08:35)
[2018-07-06] MEDS: Aspirin Enteric Coated 81 MG Tablet PO SCH (08:35)
[2018-07-06] MEDS: ARIPiprazole 10 MG TABLET PO SCH (08:35)
[2018-07-06] MEDS: Calcium Acetate 667 MG CAPSULE PO SCH ×3 (08:35→15:52)
[2018-07-06] MEDS: Isosorbide MONOnitrate (24 HR) 30 MG TAB.ER.24H PO SCH (08:35)
[2018-07-06] MEDS ORDERED: Vancomycin 1 EACH in 0.9 % Sodium Chloride 250 ML IVPB PRN (09:15)
[2018-07-06] MEDS ORDERED: 0.9 % Sodium Chloride 1,000 ML ONE (09:17)
[2018-07-06] MEDS ORDERED: 0.9 % Sodium Chloride 250 ML IVC PRN (09:55)
[2018-07-06] MEDS ORDERED: 0.9 % Sodium Chloride 1,000 ML PRIME SCH (10:00)
[2018-07-06] MEDS: Budesonide/Formoterol 160/4.5 1 PUFF INH IH SCH ×2 (11:08→21:58)
--- NOTE | 2018-07-06 14:34 | Nephrology Consult Note ---
<Diann Norwood - Last Filed: 07/06/18 14:39> Date of Encounter: 07/06/18 Time of Encounter: 14:22 Assessment and Plan (1) ESRD (end stage renal disease) on dialysis Status: Acute Current regimen is TTS at [place]. Last tx was yesterday before coming to ED. HD in progress for today. Avoid nephrotoxins and renal dose. (2) Dyspnea Status: Acute On 3 Liters n/c. Will order additional UF as needed. Qualifiers: Dyspnea type: unspecified Qualified Code(s): R06.00 - Dyspnea, unspecified (3) Wound of sacral region Status: Acute Per primary. Qualifiers: Qualified Code(s): S31.000A - Unspecified open wound of lower back and pelvis without penetration into retroperitoneum, initial encounter History of Present Illness - Reason for Consult Consult date: 07/06/18 end stage renal disease - Chief Complaint difficulty in breathing - History of Present Illness Ms. Riley if a 63 year old female with ESRD. Current regimen is TTS at [facility]. Last treatment was yesterday at the HD center, it was approximately 3 hours long but she signed off and came to ED for evaluation. She presented with shortness of breath and CP. She was just discharged 07/04/18 for similar symptoms. She has actually been admitted 3 times just this month. She denies CP now, but is still short of breath. She is on 3 liters n/c, which is her requirement for the ECF as well. PMH: arthritis, coronary artery disease, diabetes, dialysis, GERD, hyperlipidemia, hypertension, myocardial infarction. She is currently in HD, tolerating well. Past Med Surg Social Fam HX - Past Medical History Medical history: atrial fibrillation, CHF, COPD, dementia, diabetes, GI bleed, hyperlipidemia, hypertension, myocardial infarction, peripheral artery disease, renal disease, other Additional medical history: right ureteral obstruction Psychiatric history: anxiety, depression, schizophrenia, previous psychiatric hospitalization - Past Surgical History Surgical History: angioplasty/stent, appendectomy, cholecystectomy, coronary bypass (CABG), hysterectomy, knee replacement, other, IVC filter Additional surgical history: left arm fistulogram with covered stent placement left basilic vein 2016. Hysterectomy 1996. kidney stones 1996. appendix 1970. tonsils unsure date. double Bypass 1998. stents x5 unsure date. right wrist 2017 - Social History Smoking Status: Current every day smoker Smokeless Tobacco Status: No Alcohol use: none Drug use: none - Family History Brother Adopted: No Family Member Ethnicity: Non- Living Status: Still Living Hx Family Cardiac Disorders: No Hx Family Respiratory Disorders: No Hx Family Cancer: No Hx Family GI Disorders: No Hx Family Endocrine Disorder: No Hx Family Neuromuscular Disorders: No Hx Family Neurologic Disorders: No Hx Family HEENT Disorders: No Hx Family Autoimmune Disorders: No Father Family Member Ethnicity: Non- Living Status: Hx Family Cardiac Disorders: Yes Hx Family Respiratory Disorders: Yes Hx Family Cancer: Yes (Polycythemia) Hx Family Endocrine Disorder: Yes (DM) Mother Family Member Ethnicity: Non- Living Status: Still Living Hx Family Cardiac Disorders: Yes Hx Family Respiratory Disorders: Yes (asthma, COPD) Sister Adopted: No Family Member Ethnicity: Non- Living Status: Still Living Hx Family Cardiac Disorders: Yes Hx Family Respiratory Disorders: No Hx Family Cancer: No Hx Family GI Disorders: No Hx Family Endocrine Disorder: Yes Hx Family Neuromuscular Disorders: No Hx Family Neurologic Disorders: No Hx Family HEENT Disorders: No Hx Family Autoimmune Disorders: No Medications and Allergies RX: Colestipol HCl [Colestid] 1 gm PO BID 06/12/15 [History] RX: Calcium Acetate [Phos-LO] 1,334 mg PO TIDWM 09/06/16 [History] RX: ARIPiprazole [Abilify] 10 mg PO DAILY 09/13/17 [History] RX: Aspirin Enteric Coated [Aspirin EC] 81 mg PO DAILY 09/13/17 [History] RX: Budesonide/Formoterol 160/4.5 [Symbicort 160/4.5] 2 puff IH BIDR 09/13/17 [History] RX: Cholecalciferol (Vitamin D3) [Vitamin D3] 50,000 unit PO TH 09/13/17 [Histor y] RX: Sevelamer [Renvela] 800 mg PO DAILY 09/13/17 [History] RX: Albuterol Neb [AccuNeb] 0.63 mg IH Q6H PRN 10/18/17 [History] RX: amLODIPine [Norvasc] 5 mg PO DAILY 12/30/17 [History] RX: Clopidogrel [Plavix] 75 mg PO DAILY 02/03/18 [History] RX: Rosuvastatin Calcium [Crestor] 20 mg PO DAILY 02/27/18 [History] RX: Amitriptyline [Elavil] 50 mg PO HS tablet 03/24/18 [Rx] RX: Metoclopramide [Reglan] 5 mg PO TIDAC 3 Days #9 ud.liq 04/08/18 [Rx] RX: Sucralfate [Carafate] 1 gm PO QIDAC 3 Days #12 tablet 04/08/18 [Rx] RX: Renal Vitamin [Renal Caps Softgel] 1 mg PO DAILY capsule 04/17/18 [Rx] RX: Carvedilol 12.5 mg PO BID 04/28/18 [History] RX: Darbepoetin [Aranesp] 60 mcg SQ TH 04/28/18 [History] RX: Insulin DETEMIR [Levemir] 28 unit SQ HS 04/28/18 [History] RX: Insulin LISPRO [HumaLOG] 2 - 10 units SQ TIDWM 04/28/18 [History] RX: Lactobacillus Acidophilus/Fos [Acidophilus Probiotic Tablet] 1 tab PO DAILY 04/28/18 [History] RX: Omeprazole [PriLOSEC] 20 mg PO DAILY 04/28/18 [History] RX: Ondansetron HCl [Zofran] 4 mg PO Q12H PRN 04/28/18 [History] RX: Gentamicin Oint [Garamycin] 1 appl TP BID #1 tube 06/17/18 [Rx] RX: Isosorbide MONOnitrate (24 HR) [Imdur] 30 mg PO DAILY #30 tab.er.24h 07/04/18 [Rx] RX: Benzonatate [Tessalon] 200 mg PO TID PRN 10 Days #30 capsule 07/22/18 [Rx] RX: Gabapentin [Neurontin] 100 mg PO TID 4 Days #12 capsule 07/22/18 [Rx] RX: OxyCODONE/APAP 5/325 [Percocet 5/325 MG] 1 each PO Q8HR PRN 2 Days #6 tablet 07/22/18 [Rx] RX: Ertapenem [INVanz] 500 mg IVPB DAILY #7 vial 07/26/18 [Rx] Allergy/AdvReac Type Severity Reaction Status Date / Time piperacillin [From Zosyn] Allergy Anaphylaxis Verified 07/05/18 10:03 tazobactam [From Zosyn] Allergy Anaphylaxis Verified 07/05/18 10:03 Review of Systems Constitutional: weight gain, no anorexia, no fatigue, no fever(s) Cardiovascular: chest pain, dyspnea, edema Respiratory: dyspnea Gastrointestinal: no diarrhea, no nausea, no vomiting Exam - Vital Signs Vital signs: Initial Vital Signs Temp Pulse Resp BP Pulse Ox 97.7 F 82 20 115/52 95 07/05/18 09:56 07/05/18 09:56 07/05/18 09:56 07/05/18 09:56 07/05/18 09:56 Vital Signs - Last 8 Hours Temp Pulse Resp BP Pulse Ox 07/06/18 13:00 117/56 07/06/18 12:45 126/67 07/06/18 12:30 134/71 07/06/18 12:15 127/65 07/06/18 12:00 139/75 07/06/18 11:45 140/65 07/06/18 11:30 150/78 07/06/18 11:15 144/83 07/06/18 11:00 154/80 07/06/18 10:45 97.4 F L 20 148/73 07/06/18 07:07 97.7 F 76 18 122/64 97 Intake and Output 07/05/18 07/06/18 07/06/18 23:59 07:59 15:59 Intake Total 100 / 100 100 / 100 1080 / 1080 Output Total 0 / 0 Balance 100 / 100 100 / 100 1080 / 1080 Intake: IV Fluids 100 / 100 100 / 100 Flagyl Premix 500 MG/100 ML 500 100 / 100 100 / 100 mg In 100 ml @ 100 mls/hr IVPB Q8H [facility] Rx#:[id number] Oral 0 / 0 480 / 480 Intake, Rinseback and Flushes 600 / 600 Output: Urine 0 / 0 Other: Meal Breakfast Percent of Meal Consumed 100% Stool Size Small Stool Consistency formed Stool Characteristics Mucoid Stool Color Brown # Bowel Movements 1 Weight 126.7 kg Blood Glucose* 231 134 141 Hemodialysis Net Fluid Removed 3599 (mL) - General Appearance General appearance: chronically ill, fatigue, frail EENT: ATNC Neck: supple Respiratory: clear Cardiology: edema (+3 tense pitting edema noted to bilat lower extremities.), normal S1, normal S2 - Dialysis Access Dialysis Vascular Access: Arteriovenous Fistula thrill: Yes bruit: Yes Gastrointestinal: normoactive bowel sounds, no tenderness, no guarding Integumentary: no rash, warm and dry Neurologic: alert and oriented x3 Psychiatric: mood/affect appropriate, cooperative Results - Lab Results 07/06/18 03:49 07/06/18 03:49 Most recent lab results Calcium 8.4 mg/dL (8.6-10.3) L 07/06/18 03:49 Consult Discharge Plan - Plan Referrals: Tristen Quitnana MD [Primary Care Provider] - <Luma Mendez - Last Filed: 08/05/18 19:35> Assessment and Plan (1) Dyspnea Status: Acute Qualifiers: Dyspnea type: unspecified Qualified Code(s): R06.00 - Dyspnea, unspecified (2) ESRD (end stage renal disease) on dialysis Status: Chronic (3) Wound of sacral region Status: Acute Qualifiers: Qualified Code(s): S31.000A - Unspecified open wound of lower back and pelvis without penetration into retroperitoneum, initial encounter Exam - Vital Signs Vital signs: Initial Vital Signs Temp Pulse Resp BP Pulse Ox 97.7 F 82 20 115/52 95 07/05/18 09:56 07/05/18 09:56 07/05/18 09:56 07/05/18 09:56 07/05/18 09:56 Results - Lab Results 07/08/18 04:09 07/08/18 04:09 Most recent lab results Calcium 9.1 mg/dL (8.6-10.3) 07/08/18 04:09 - Attending Attestation I examined this patient and my medical decision-making was reviewed with the Resident Physician/SHEEPSKIN PICKLER. I agree with the documented findings, disposition and treatment plan as described except to the extent set forth below. In brief; 63 y o female with PMH of ESRD on HD with recurrent hospital stays and often several in the same months for similar symptoms. This time pt left D unit after 3hrs of HD with UF for chest pain and SOB. Of note; pt has had extensive cardiac workup this year and has noncompliance to fluids and food restrictions. On exam noted with LE edema worse than previous with chronic venous stasis, chronic ill appearing. Will continue HD with UF today. Will plan more UF back to back if needed. Compliance to diet and fluid restriction discussed with patient who expressed understanding
[2018-07-06] MEDS: Gentamicin Oint 15 GM TUBE TP SCH (15:41)
[2018-07-06] MEDS: Cefepime HCl 1,000 MG in Water for inj. (sterile) 20 ML 10 ML IVP SCH (15:52)
[2018-07-06] MEDS: Insulin LISPRO 300 UNITS/3 ML VIAL SQ SCH ×2 (18:43→20:45)
[2018-07-06] MEDS: Insulin DETEMIR 100 UNIT/ML X5UNITS SQ SCH (20:31)
--- NOTE | 2018-07-06 20:51 | Internal Med Progress Note ---
Hospitalist Progress Note - Encounter Date of Encounter: 07/06/18 Time of Encounter: 11:00 - Subjective Interval History: Patient's acute on chronic respiratory failure has resolved and currently being treated for suspected decubitus sacral ulcer with IV antibiotics Awaiting results from cultures - Exam Vitals: Temp Pulse Resp BP Pulse Ox 98.6 F 88 17 123/70 97 07/06/18 19:10 07/06/18 19:10 07/06/18 19:10 07/06/18 19:10 07/06/18 19:10 Exam: Gen.: Nonacute distress, alert and oriented 3 ENT: Mucosal membranes moist Respiratory: Lungs are clear to auscultation bilaterally without any wheezing rhonchi or rales Cardiovascular: Normal S1 and S2 regular rate rhythm no murmurs rubs or gallops Abdomen: Soft, nontender and nondistended with positive bowel sounds Extremities: No lower extremity edema Skin: Normal color - Assessment and Plan (1) Acute and chronic respiratory failure Current Visit: No Status: Acute Assessment and Plan: On exam in the ER, patient close to baseline oxygen supplementation at 4 L of nasal cannula and wears 3 L of nasal cannula at the ECF. Venous blood gas in the ER showed a pH of 7.49 and a CO2 of 34. Patient essentially at baseline oxygen supplementation; will continue to monitor (2) Decubitus ulcer of sacral region, stage 3 Current Visit: No Status: Chronic Assessment and Plan: On physical exam, patient was found to have a large stage III decubitus sacral ulcer strained yellowish/greenish pus that was cultured in the ER. Will continue IV cefepime, IV Flagyl and IV vancomycin until culture results known. Wound care consulted and appreciate recommendation. (3) End-stage renal disease (ESRD) Current Visit: No Status: Acute Assessment and Plan: Will consult nephrology for hemodialysis management (Tuesdays, and Saturdays) (4) Type 2 diabetes mellitus with ESRD (end-stage renal disease) Current Visit: No Status: Acute Assessment and Plan: Continue home medications (5) Anemia in chronic kidney disease, on chronic dialysis Current Visit: No Status: Chronic Assessment and Plan: Hemoglobin close to baseline; continue to monitor (6) CAD (coronary artery disease) Current Visit: No Status: Acute Assessment and Plan: Stable; continue home medications (7) Obesity Current Visit: No Status: Acute Assessment and Plan: Lifestyle modifications (8) DVT prophylaxis Current Visit: No Status: Acute Assessment and Plan: Subcutaneous heparin - Time Spent with Patient Total time spent is greater than 50% in coordination of care (as documented) at patient's floor/unit and/or counseling patient: Internal Medicine: Result - Labs CBC & Chem 7: 07/07/18 03:52 07/07/18 03:52 Labs: Short CBC 07/06/18 Range/Units 03:49 WBC 6.4 (4.3-11.1) K/mcL Hgb 9.9 L (11.5-15.4) g/dL Hct 33.2 L (35.3-44.9) % Plt Count 121 L (140-400) K/mcL Neutrophils # 4.5 (1.6-8.9) K/mcL BMP 07/06/18 03:49 Sodium 134 L Potassium 3.8 Chloride 101 Carbon Dioxide 23 BUN 24 H Creatinine 3.15 H Glucose 172 H Calcium 8.4 L Consult Discharge Plan - Plan Referrals: Tristen Quintana MD [Primary Care Provider] - (1) Acute and chronic respiratory failure Qualifiers: Respiratory failure complication: unspecified whether with hypoxia or hypercapnia Qualified Code(s): J96.20 - Acute and chronic respiratory failure, unspecified whether with hypoxia or hypercapnia (6) CAD (coronary artery disease) Qualifiers: Coronary Disease-Associated Artery/Lesion type: unspecified vessel or lesion type [place] vs. transplanted heart: unspecified whether [place] or transplanted heart Associated angina: without angina Qualified Code(s): I25.10 - Atherosclerotic heart disease of [place] coronary artery without angina pectoris (7) Obesity Qualifiers: Obesity type: unspecified obesity type Serious obesity comorbidity presence: with serious comorbidity Body mass index: BMI 40.0-44.9
[2018-07-07] MEDS: *HR* OxyCODONE/APAP 5/325 TABLET PO PRN ×3 (03:20→20:49)
[2018-07-07] MEDS: MetroNIDAZOLE 500 MG/100 ML 500 MG/100 ML BAG IVPB SCH ×3 (03:20→18:35)
[2018-07-07] MEDS: Levalbuterol Neb 1.25 MG/3 ML IH SCH ×4 (03:55→22:14)
[2018-07-07 04:24] LABS: Basophils % 0.6 %; Eosinophils # 0.1 K/mcL (0.0-0.6); Eosinophils % 1.7 %; Hematocrit 32.9 % (35.3-44.9); Hemoglobin 9.8 g/dL (11.5-15.4); Immature Granulocytes % 0.8 % (0-4); Lymphocytes # 0.9 K/mcL (0.6-4.6); Mean Corpuscular HGB Conc 29.8 g/dL (31.6-35.5); Mean Corpuscular Volume 83.9 fL (83.0-100.0); Mean Platelet Volume 11.9 fL (9.4-12.4); Monocytes # 0.7 K/mcL (0.0-1.3); Monocytes % 10.3 %; Neutrophils # 4.7 K/mcL (1.6-8.9); Platelet Count 131 K/mcL (140-400); Red Blood Count 3.92 M/mcL (3.82-4.97); Red Cell Distribution Width 17.6 % (11.5-14.5); Segmented Neutrophils % 72.6 %
[2018-07-07 04:33] LABS: Calcium 8.7 mg/dL (8.6-10.3); Potassium 4.3 mEq/L (3.5-5.1)
[2018-07-07] MEDS: *HR* Heparin 5,000 UNIT/ML VIAL SQ SCH ×3 (05:46→16:31)
[2018-07-07] MEDS ORDERED: 0.9 % Sodium Chloride 250 ML IVC PRN (07:26)
[2018-07-07] MEDS ORDERED: 0.9 % Sodium Chloride 2,000 ML ONE (07:41)
[2018-07-07] MEDS: Gentamicin Oint 15 GM TUBE TP SCH ×2 (07:46→08:06)
[2018-07-07] MEDS: Insulin LISPRO 300 UNITS/3 ML VIAL SQ SCH ×4 (07:47→20:53)
[2018-07-07] MEDS: Renal Vitamin 1 CAP CAPSULE PO SCH (08:04)
[2018-07-07] MEDS: Gabapentin 100 MG CAPSULE PO SCH ×3 (08:04→20:48)
[2018-07-07] MEDS: Metoclopramide 10 MG/10 ML UD.LIQ PO SCH ×3 (08:04→16:23)
[2018-07-07] MEDS: Aspirin Enteric Coated 81 MG Tablet PO SCH (08:04)
[2018-07-07] MEDS: Lactobacillus 1 EACH CAP.SPRINK PO SCH (08:04)
[2018-07-07] MEDS: ARIPiprazole 10 MG TABLET PO SCH (08:04)
[2018-07-07] MEDS: Calcium Acetate 667 MG CAPSULE PO SCH ×3 (08:04→16:23)
--- NOTE | 2018-07-07 10:36 | Nephrology Progress Note ---
Date of Encounter: 07/07/18 Time of Encounter: 10:35 - Assessment and Plan (1) ESRD (end stage renal disease) on dialysis Current Visit: Yes Status: Acute Current regimen is TTS at [place]. UF in progress. Avoid nephrotoxins and renal dose. (2) Dyspnea Current Visit: Yes Status: Acute On 3 Liters n/c. Will order additional UF as needed. Qualifiers: Dyspnea type: unspecified Qualified Code(s): R06.00 - Dyspnea, unspecified (3) Wound of sacral region Current Visit: Yes Status: Acute Per primary. Qualifiers: Qualified Code(s): S31.000A - Unspecified open wound of lower back and pelvis without penetration into retroperitoneum, initial encounter Subjective Principal diagnosis: HERNÁN Interval history: Pt seen and examined in HD. UF in progress,tolerating well. Objective - Vital Signs Vital signs: Vital Signs Temp Pulse Resp BP Pulse Ox 07/07/18 09:50 141/70 07/07/18 09:35 129/45 07/07/18 09:20 97.3 F L 18 132/70 07/07/18 08:07 130/75 07/07/18 06:40 97.9 F 87 20 130/75 100 07/07/18 04:21 97.9 F 80 16 130/73 96 07/07/18 03:55 14 99 07/07/18 03:23 98.0 F 88 19 102/58 93 07/07/18 00:31 98.7 F 111 16 115/70 100 07/06/18 21:58 14 93 07/06/18 19:10 98.6 F 88 17 123/70 97 07/06/18 17:55 97.8 F 72 18 120/68 97 07/06/18 15:50 18 96 07/06/18 14:35 97.7 F 20 130/59 07/06/18 14:15 131/61 07/06/18 14:00 156/74 07/06/18 13:45 139/65 07/06/18 13:30 118/58 07/06/18 13:15 111/51 07/06/18 13:00 117/56 07/06/18 12:45 126/67 07/06/18 12:30 134/71 07/06/18 12:15 127/65 07/06/18 12:00 139/75 07/06/18 11:45 140/65 07/06/18 11:30 150/78 07/06/18 11:15 144/83 07/06/18 11:00 154/80 07/06/18 10:45 97.4 F L 20 148/73 Intake and Output 07/06/18 07/07/18 07/07/18 23:59 07:59 15:59 Intake Total 100 / 100 100 / 100 600 / 600 Balance 100 / 100 100 / 100 600 / 600 Intake: IV Fluids 100 / 100 100 / 100 Flagyl Premix 500 MG/100 ML 500 100 / 100 100 / 100 mg In 100 ml @ 100 mls/hr IVPB Q8H [facility] Rx#:[id number] Oral 0 / 0 0 / 0 Intake, Rinseback and Flushes 600 / 600 Other: # Voids 1 Weight 127 kg 123 kg Blood Glucose* 215 73 Hemodialysis Net Fluid Removed 1394 (mL) Patient Weight 07/07/18 23:59 Weight 123 kg - General Appearance General appearance: Present: chronically ill, fatigue, frail EENT: Present: ATNC, hearing intact, vision intact Neck: Present: supple Respiratory: Present: wheezing, rhonchi Cardiology: Present: edema (+2 pitting edema noted to bilat lower extremities.) , normal S1, normal S2 Dialysis Vascular Access: Arteriovenous Fistula thrill: Yes bruit: Yes Gastrointestinal: Present: normoactive bowel sounds, no tenderness, no guarding Integumentary: Present: no rash, warm and dry Neurologic: Present: alert and oriented x3 Psychiatric: Present: mood/affect appropriate, cooperative - Lab 07/07/18 03:52 07/07/18 03:52 Most recent lab results Calcium 8.7 mg/dL (8.6-10.3) 07/07/18 03:52 Consult Discharge Plan - Plan Referrals: Tristen Quintana MD [Primary Care Provider] -
[2018-07-07] MEDS: Budesonide/Formoterol 160/4.5 1 PUFF INH IH SCH ×2 (10:45→22:14)
[2018-07-07] MEDS: Isosorbide MONOnitrate (24 HR) 30 MG TAB.ER.24H PO SCH (11:54)
[2018-07-07] MEDS: amLODIPine 5 MG TABLET PO SCH (11:54)
[2018-07-07] MEDS: Cefepime HCl 1,000 MG in Water for inj. (sterile) 20 ML 10 ML IVP SCH (15:01)
[2018-07-07] MEDS ORDERED: Vancomycin 250 MG in 0.9 % Sodium Chloride Mini Bag 100 ML IVPB ONE (16:00)
[2018-07-07] MEDS ORDERED: Aminoglycoside Consult 1 EACH MC ONE (16:27)
--- NOTE | 2018-07-07 18:29 | Internal Med Progress Note ---
Hospitalist Progress Note - Encounter Date of Encounter: 07/07/18 Time of Encounter: 11:00 - Subjective Interval History: Patient's sensitivities for wound cultures resulted today which show no isolated pathogens; will discontinue all IV antibiotics and continue wound care Patient however was noted to have right upper extremity redness, warmth and indurated area; ultrasound pending - Exam Vitals: Temp Pulse Resp BP Pulse Ox 98.1 F 91 18 127/67 100 07/07/18 15:25 07/07/18 15:25 07/07/18 15:25 07/07/18 15:25 07/07/18 15:25 Exam: Gen.: Nonacute distress, alert and oriented 3 ENT: Mucosal membranes moist Respiratory: Lungs are clear to auscultation bilaterally without any wheezing rhonchi or rales Cardiovascular: Normal S1 and S2 regular rate rhythm no murmurs rubs or gallops Abdomen: Soft, nontender and nondistended with positive bowel sounds Extremities: Patient now with right upper extremity redness/warmth and indurated area that is tender to palpation Skin: Normal color - Assessment and Plan (1) Swelling of right upper extremity Current Visit: Yes Status: Acute Assessment and Plan: Patient now with right upper extremity redness/warmth and indurated area that is tender to palpation Ultrasound of upper extremity ordered and pending (2) Acute and chronic respiratory failure Current Visit: No Status: Acute Assessment and Plan: On exam in the ER, patient close to baseline oxygen supplementation at 4 L of nasal cannula and wears 3 L of nasal cannula at the ECF. Venous blood gas in the ER showed a pH of 7.49 and a CO2 of 34. Patient essentially at baseline oxygen supplementation; will continue to monitor (3) Decubitus ulcer of sacral region, stage 3 Current Visit: No Status: Chronic Assessment and Plan: On physical exam, patient was found to have a large stage III decubitus sacral ulcer strained yellowish/greenish pus that was cultured in the ER. Wound culture negative for any isolated pathogen therefore will discontinue all IV antibiotics (4) End-stage renal disease (ESRD) Current Visit: No Status: Acute Assessment and Plan: Will consult nephrology for hemodialysis management (Tuesdays, and Saturdays) (5) Type 2 diabetes mellitus with ESRD (end-stage renal disease) Current Visit: No Status: Acute Assessment and Plan: Continue home medications (6) Anemia in chronic kidney disease, on chronic dialysis Current Visit: No Status: Chronic Assessment and Plan: Hemoglobin close to baseline; continue to monitor (7) CAD (coronary artery disease) Current Visit: No Status: Acute Assessment and Plan: Stable; continue home medications (8) Obesity Current Visit: No Status: Acute Assessment and Plan: Lifestyle modifications (9) DVT prophylaxis Current Visit: No Status: Acute Assessment and Plan: Subcutaneous heparin - Time Spent with Patient Total time spent is greater than 50% in coordination of care (as documented) at patient's floor/unit and/or counseling patient: Internal Medicine: Result - Labs CBC & Chem 7: 07/07/18 03:52 07/07/18 03:52 Labs: Short CBC 07/07/18 Range/Units 03:52 WBC 6.5 (4.3-11.1) K/mcL Hgb 9.8 L (11.5-15.4) g/dL Hct 32.9 L (35.3-44.9) % Plt Count 131 L (140-400) K/mcL Neutrophils # 4.7 (1.6-8.9) K/mcL BMP 07/07/18 03:52 Sodium 135 L Potassium 4.3 Chloride 101 Carbon Dioxide 26 BUN 15 Creatinine 2.54 H Glucose 82 Calcium 8.7 Consult Discharge Plan - Plan Referrals: Tristen Quintana MD [Primary Care Provider] - (2) Acute and chronic respiratory failure Qualifiers: Respiratory failure complication: unspecified whether with hypoxia or hypercapnia Qualified Code(s): J96.20 - Acute and chronic respiratory failure, unspecified whether with hypoxia or hypercapnia (7) CAD (coronary artery disease) Qualifiers: Coronary Disease-Associated Artery/Lesion type: unspecified vessel or lesion type [place] vs. transplanted heart: unspecified whether [place] or transplanted heart Associated angina: without angina Qualified Code(s): I25.10 - Atherosclerotic heart disease of [place] coronary artery without angina pectoris (8) Obesity Qualifiers: Obesity type: unspecified obesity type Serious obesity comorbidity presence: with serious comorbidity Body mass index: BMI 40.0-44.9
[2018-07-07] MEDS: Insulin DETEMIR 100 UNIT/ML X5UNITS SQ SCH (20:50)
--- NOTE | 2018-07-08 00:31 | Electrocardiograph Report ---
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
[2018-07-08] MEDS: Gentamicin Oint 15 GM TUBE TP SCH ×2 (03:04→08:30)
[2018-07-08] MEDS: MetroNIDAZOLE 500 MG/100 ML 500 MG/100 ML BAG IVPB SCH ×2 (03:10→08:31)
[2018-07-08] MEDS: Levalbuterol Neb 1.25 MG/3 ML IH SCH ×3 (03:32→15:49)
[2018-07-08 04:41] LABS: Hemoglobin 9.4 g/dL (11.5-15.4)
[2018-07-08 04:42] LABS: Basophils # 0.1 K/mcL (0.0-0.2); Basophils % 0.9 %; Eosinophils # 0.2 K/mcL (0.0-0.6); Eosinophils % 2.8 %; Hematocrit 32.4 % (35.3-44.9); Immature Granulocytes % 0.4 % (0-4); Lymphocytes % 17.2 %; Mean Corpuscular Hemoglobin 24.6 pg (28.0-33.3); Mean Corpuscular Volume 84.8 fL (83.0-100.0); Mean Platelet Volume 11.9 fL (9.4-12.4); Monocytes # 0.7 K/mcL (0.0-1.3); Monocytes % 11.7 %; Neutrophils # 3.8 K/mcL (1.6-8.9); Platelet Count 120 K/mcL (140-400); Red Blood Count 3.82 M/mcL (3.82-4.97); Red Cell Distribution Width 17.7 % (11.5-14.5)
[2018-07-08 04:57] LABS: Platelet Estimate Decreased (Normal)
[2018-07-08 04:58] LABS: Anisocytosis 1+ (Not Present); Calcium 9.1 mg/dL (8.6-10.3); Hypochromasia Present (Not Present); Potassium 4.5 mEq/L (3.5-5.1)
[2018-07-08] MEDS: *HR* Heparin 5,000 UNIT/ML VIAL SQ SCH (05:17)
[2018-07-08] MEDS: Benzonatate 100 MG CAPSULE PO PRN (05:17)
[2018-07-08] MEDS: Renal Vitamin 1 CAP CAPSULE PO SCH (08:30)
[2018-07-08] MEDS: ARIPiprazole 10 MG TABLET PO SCH (08:30)
[2018-07-08] MEDS: Calcium Acetate 667 MG CAPSULE PO SCH ×2 (08:30→13:21)
[2018-07-08] MEDS: amLODIPine 5 MG TABLET PO SCH (08:30)
[2018-07-08] MEDS: Lactobacillus 1 EACH CAP.SPRINK PO SCH (08:30)
[2018-07-08] MEDS: Isosorbide MONOnitrate (24 HR) 30 MG TAB.ER.24H PO SCH (08:30)
[2018-07-08] MEDS: Gabapentin 100 MG CAPSULE PO SCH (08:30)
[2018-07-08] MEDS: Metoclopramide 10 MG/10 ML UD.LIQ PO SCH ×2 (08:31→13:21)
[2018-07-08] MEDS: Insulin LISPRO 300 UNITS/3 ML VIAL SQ SCH ×2 (08:31→13:22)
[2018-07-08] MEDS: Aspirin Enteric Coated 81 MG Tablet PO SCH (09:05)
[2018-07-08] MEDS: Budesonide/Formoterol 160/4.5 1 PUFF INH IH SCH (10:53)
--- NOTE | 2018-07-08 11:38 | Discharge Summary ---
- NOTES TO OUTPATIENT PROVIDER Notes to Outpatient Provider: none Orders not resulted at time of discharge: Pending orders 07/05/18 14:31 Culture,Anaerobic [RM] Routine 07/09/18 04:00 Basic Metabolic Panel AM 0400 CBC [Complete Blood Count] [HEME] AM 0400 Date of Encounter: 07/08/18 Time of Encounter: 11:00 - Discharge Diagnosis (1) Swelling of right upper extremity Priority: Secondary Status: Acute (2) Acute and chronic respiratory failure Priority: Primary Status: Acute Qualifiers: Respiratory failure complication: unspecified whether with hypoxia or hypercapnia Qualified Code(s): J96.20 - Acute and chronic respiratory failure , unspecified whether with hypoxia or hypercapnia (3) Decubitus ulcer of sacral region, stage 3 Priority: Secondary Status: Chronic (4) End-stage renal disease (ESRD) Priority: Secondary Status: Acute (5) Type 2 diabetes mellitus with ESRD (end-stage renal disease) Priority: Secondary Status: Acute (6) Anemia in chronic kidney disease, on chronic dialysis Priority: Secondary Status: Chronic (7) CAD (coronary artery disease) Priority: Secondary Status: Acute Qualifiers: Coronary Disease-Associated Artery/Lesion type: unspecified vessel or lesion type [place] vs. transplanted heart: unspecified whether [place] or transplanted heart Associated angina: without angina Qualified Code(s): I25.10 - Atherosclerotic heart disease of [place] coronary artery without angina pectoris (8) Obesity Priority: Secondary Status: Acute Qualifiers: Obesity type: unspecified obesity type Serious obesity comorbidity presence : with serious comorbidity Body mass index: BMI 40.0-44.9 Qualified Code(s) : E66.01 - Morbid (severe) obesity due to excess calories; Z68.41 - Body mass index (BMI) 40.0-44.9, adult Hospital course: Patient is a 63-year-old female with past medical history significant for end- stage renal disease on hemodialysis, atrial fibrillation, ischemic cardiomyopathy, COPD with chronic respiratory failure, dementia, diabetes, hyperlipidemia and hypertension who presents to the ER on 07/05/18 due to shortness of breath. Patient is a poor historian but reports of being sent over from the [facility] due to shortness of breath. On exam in the ER, patient close to baseline oxygen supplementation at 4 L of nasal cannula and wears 3 L of nasal cannula at the ECF. Venous blood gas in the ER showed a pH of 7.49 and a CO2 of 34. Patient without leukocytosis and afebrile; chest x-ray shows no significant findings of interval change with mild edema and small left pleural effusion. On physical exam, patient was found to have a large stage IV decubitus sacral ulcer strained yellowish/greenish pus that was cultured in the ER. Patient will be admitted to the medical surgical floor for acute on chronic respiratory failure with affected stage III decubitus sacral ulcer. During patients hospital stay her acute on chronic respiratory failure resolved and she her cultures were negative that were taken from sacral decubitus stage III ulcer. She is medically stable and back to baseline therefore will be discharged back to [facility]. - Time Spent with Patient Total time spent providing and/or coordinating discharge services: Less than 30 minutes - Discharge Medications Prescriptions: OxyCODONE/APAP 5/325 [Percocet 5/325 MG] 1 each PO Q8HR PRN 2 Days #6 tablet PRN Reason: Pain Doxycycline 100 mg PO BID #14 capsule Home Medications: Colestipol HCl [Colestid] 1 gm PO BID 06/12/15 [History] Calcium Acetate [Phos-LO] 1,334 mg PO TIDWM 09/06/16 [History] ARIPiprazole [Abilify] 10 mg PO DAILY 09/13/17 [History] Aspirin Enteric Coated [Aspirin EC] 81 mg PO DAILY 09/13/17 [History] Budesonide/Formoterol 160/4.5 [Symbicort 160/4.5] 2 puff IH BIDR 09/13/17 [ History] Cholecalciferol (Vitamin D3) [Vitamin D3] 50,000 unit PO TH 09/13/17 [History] Sevelamer [Renvela] 800 mg PO DAILY 09/13/17 [History] Albuterol Neb [AccuNeb] 0.63 mg IH Q6H PRN 10/18/17 [History] amLODIPine [Norvasc] 5 mg PO DAILY 12/30/17 [History] Clopidogrel [Plavix] 75 mg PO DAILY 02/03/18 [History] Rosuvastatin Calcium [Crestor] 20 mg PO DAILY 02/27/18 [History] Amitriptyline [Elavil] 50 mg PO HS tablet 03/24/18 [Rx] Metoclopramide [Reglan] 5 mg PO TIDAC 3 Days #9 ud.liq 04/08/18 [Rx] Sucralfate [Carafate] 1 gm PO QIDAC 3 Days #12 tablet 04/08/18 [Rx] Renal Vitamin [Renal Caps Softgel] 1 mg PO DAILY capsule 04/17/18 [Rx] Carvedilol 12.5 mg PO BID 04/28/18 [History] Darbepoetin [Aranesp] 60 mcg SQ TH 04/28/18 [History] Insulin DETEMIR [Levemir] 28 unit SQ HS 04/28/18 [History] Insulin LISPRO [HumaLOG] 2 - 10 units SQ TIDWM 04/28/18 [History] Lactobacillus Acidophilus/Fos [Acidophilus Probiotic Tablet] 1 tab PO DAILY [History] Omeprazole [PriLOSEC] 20 mg PO DAILY 04/28/18 [History] Ondansetron HCl [Zofran] 4 mg PO Q12H PRN 04/28/18 [History] Gentamicin Oint [Garamycin] 1 appl TP BID #1 tube 06/17/18 [Rx] Gabapentin [Neurontin] 100 mg PO TID 2 Days #6 capsule 06/18/18 [Rx] Isosorbide MONOnitrate (24 HR) [Imdur] 30 mg PO DAILY #30 tab.er.24h 07/04/18 [ Rx] Doxycycline 100 mg PO BID #14 capsule 07/08/18 [Rx] OxyCODONE/APAP 5/325 [Percocet 5/325 MG] 1 each PO Q8HR PRN 2 Days #6 tablet [Rx] Allergies/Adverse Reactions: 3 Allergy/AdvReac Type Severity Reaction Status Date / Time piperacillin [From Zosyn] Allergy Anaphylaxis Verified 07/05/18 10:03 tazobactam [From Zosyn] Allergy Anaphylaxis Verified 07/05/18 10:03 Date of admission: 07/05/18 13:01 Primary care physician: Tristen Quintana MD Consults: 07/05/18 14:17 Consult to [employer] [CONS] Routine Reason for SW Consult: Return to ECF 07/05/18 14:20 Consult to Wound Care [CONS] Routine Reason for Consult: Pressure ulcer to coccyx with tunneling Time Notified: 14:21 Call Completed: Yes 07/05/18 17:38 Consult to Nephrology [CONS] Routine Consulting Provider: Kidney Olivia/MARCO/SWAPNA/MILLEI Reason for Consult: End-stage renal disease hemodialysis management Call Completed: No 07/06/18 10:00 Consult to Dialysis [CONS] ONCE - Constitutional Vitals: Temp Pulse Resp BP Pulse Ox 97.7 F 88 20 113/72 99 07/08/18 11:06 07/08/18 11:06 07/08/18 11:06 07/08/18 11:06 07/08/18 11:06 General appearance: Present: A&O X 3, no acute distress Exam: Gen.: Nonacute distress, alert and oriented 3 Skin: Normal color - Patient Status Disposition: Transfer SNF Condition: Fair - Discharge Instructions Follow Up With: Tristen Quintana MD [Primary Care Provider] -
--- NOTE | 2018-07-08 11:39 | Physician Discharge Referral ---
ExtendedCare Referral Info Institutional Level of Care: Intermediate - Diagnosis (1) Swelling of right upper extremity Status: Acute (2) Acute and chronic respiratory failure Status: Acute (3) Decubitus ulcer of sacral region, stage 3 Status: Chronic (4) End-stage renal disease (ESRD) Status: Acute (5) Type 2 diabetes mellitus with ESRD (end-stage renal disease) Status: Acute (6) Anemia in chronic kidney disease, on chronic dialysis Status: Chronic (7) CAD (coronary artery disease) Status: Acute (8) Obesity Status: Acute (9) DVT prophylaxis Status: Acute - Transfer Medications Prescriptions: OxyCODONE/APAP 5/325 [Percocet 5/325 MG] 1 each PO Q8HR PRN 2 Days #6 tablet PRN Reason: Pain Doxycycline 100 mg PO BID #14 capsule Home Medications: Colestipol HCl [Colestid] 1 gm PO BID 06/12/15 [History] Calcium Acetate [Phos-LO] 1,334 mg PO TIDWM 09/06/16 [History] ARIPiprazole [Abilify] 10 mg PO DAILY 09/13/17 [History] Aspirin Enteric Coated [Aspirin EC] 81 mg PO DAILY 09/13/17 [History] Budesonide/Formoterol 160/4.5 [Symbicort 160/4.5] 2 puff IH BIDR 09/13/17 [ History] Cholecalciferol (Vitamin D3) [Vitamin D3] 50,000 unit PO TH 09/13/17 [History] Sevelamer [Renvela] 800 mg PO DAILY 09/13/17 [History] Albuterol Neb [AccuNeb] 0.63 mg IH Q6H PRN 10/18/17 [History] amLODIPine [Norvasc] 5 mg PO DAILY 12/30/17 [History] Clopidogrel [Plavix] 75 mg PO DAILY 02/03/18 [History] Rosuvastatin Calcium [Crestor] 20 mg PO DAILY 02/27/18 [History] Amitriptyline [Elavil] 50 mg PO HS tablet 03/24/18 [Rx] Metoclopramide [Reglan] 5 mg PO TIDAC 3 Days #9 ud.liq 04/08/18 [Rx] Sucralfate [Carafate] 1 gm PO QIDAC 3 Days #12 tablet 04/08/18 [Rx] Renal Vitamin [Renal Caps Softgel] 1 mg PO DAILY capsule 04/17/18 [Rx] Carvedilol 12.5 mg PO BID 04/28/18 [History] Darbepoetin [Aranesp] 60 mcg SQ TH 04/28/18 [History] Insulin DETEMIR [Levemir] 28 unit SQ HS 04/28/18 [History] Insulin LISPRO [HumaLOG] 2 - 10 units SQ TIDWM 04/28/18 [History] Lactobacillus Acidophilus/Fos [Acidophilus Probiotic Tablet] 1 tab PO DAILY [History] Omeprazole [PriLOSEC] 20 mg PO DAILY 04/28/18 [History] Ondansetron HCl [Zofran] 4 mg PO Q12H PRN 04/28/18 [History] Gentamicin Oint [Garamycin] 1 appl TP BID #1 tube 06/17/18 [Rx] Gabapentin [Neurontin] 100 mg PO TID 2 Days #6 capsule 06/18/18 [Rx] Isosorbide MONOnitrate (24 HR) [Imdur] 30 mg PO DAILY #30 tab.er.24h 07/04/18 [ Rx] Doxycycline 100 mg PO BID #14 capsule 07/08/18 [Rx] OxyCODONE/APAP 5/325 [Percocet 5/325 MG] 1 each PO Q8HR PRN 2 Days #6 tablet [Rx] Allergies/Adverse Reactions: 3 Allergy/AdvReac Type Severity Reaction Status Date / Time piperacillin [From Zosyn] Allergy Anaphylaxis Verified 07/05/18 10:03 tazobactam [From Zosyn] Allergy Anaphylaxis Verified 07/05/18 10:03 - Respiratory Orders Smoking Cessation: Smoking cessation has been advised. For more information, call the [place] Tobacco Quit Line at 6-625-VFYK-NOW. CERTIFICATION: I certify that the transfer of the above named patient to an Extended Care Facility is necessary for the continuing treatment of the diagnosis listed. The above information is true and accurate reflection of patient's current condition. Confidential - Redisclosure prohibited without a patient's written consent.
[2018-07-08 16:21] VITALS: BP 129/71
== END 2018-07-08 16:28 ==
LOC: 2SOUTHHOLD 09:47 → EMEROOARM 09:47 → SUATTDRO 13:01 → 2SOUTHHOLD 13:26 → 2ANU 16:05
PROVIDERS: ADMIT Internal Medicine; ATTEND Hospitalist

== ENCOUNTER 2018-07-14 09:38 | Observation (INO) ==
[2018-07-14] MEDS ORDERED: Ipratropium/Albuterol Neb 3 ML IH ONE ×2 (09:49→10:09)
--- NOTE | 2018-07-14 10:00 | Emergency Department Note ---
Disposition Clinical Impression: Cellulitis of left lower extremity, ESRD (end stage renal disease) on dialysis , Shortness of breath Atrial fibrillation Qualifiers: Atrial fibrillation type: chronic Qualified Code(s): I48.2 - Chronic atrial fibrillation Anemia Qualifiers: Anemia type: unspecified type Qualified Code(s): D64.9 - Anemia, unspecified Acute CHF Qualifiers: Heart failure type: unspecified Qualified Code(s): I50.9 - Heart failure, unspecified Disposition: Admitted As Inpatient Condition: Fair Referrals: Tristen Quintana MD [Primary Care Provider] - Forms: ED Satisfaction Letter General Adult HPI - General Chief complaint: ED Shortness of Breath/Dyspnea Stated complaint: [place] Time Seen by Provider: 07/14/18 09:38 Source: patient, EMS Mode of arrival: EMS Limitations: no limitations Nursing Notes Reviewed: Yes Vital Signs Reviewed: Yes - History of Present Illness HPI Narrative: 63-year-old female with complex past medical history including end-stage renal disease currently getting dialysis Wednesday, and Wednesday presenting to the emergency department chief complaint shortness of breath. According to EMS patient was at dialysis this morning. Completed the dialysis treatment and started having shortness of breath. She normally wears 3 L nasal cannula but her oxygen saturation was only approximately 90%. When EMS arrived they provided her with one DuoNeb treatment and her oxygen saturation increased to 94 %. Patient states she has had shortness of breath for the past 2-3 days it has progressively been getting worse. Denies any chest pain, nausea, vomiting, abdominal pain. Denies any recent fevers or productive sputum. Pain Scale: 0 - Related Data Home Medications Medication Instructions Recorded Confirmed Colestipol HCl [Colestid] 1 gm PO BID 06/12/15 07/05/18 Calcium Acetate [Phos-LO] 1,334 mg PO TIDWM 09/06/16 07/05/18 ARIPiprazole [Abilify] 10 mg PO DAILY 09/13/17 07/05/18 Aspirin Enteric Coated [Aspirin EC] 81 mg PO DAILY 09/13/17 07/05/18 Budesonide/Formoterol 160/4.5 2 puff IH BIDR 09/13/17 07/05/18 [Symbicort 160/4.5] Cholecalciferol (Vitamin D3) 50,000 unit PO TH 09/13/17 07/05/18 [Vitamin D3] Sevelamer [Renvela] 800 mg PO DAILY 09/13/17 07/05/18 Albuterol Neb [AccuNeb] 0.63 mg IH Q6H PRN 10/18/17 07/05/18 amLODIPine [Norvasc] 5 mg PO DAILY 12/30/17 07/05/18 Clopidogrel [Plavix] 75 mg PO DAILY 02/03/18 07/05/18 Rosuvastatin Calcium [Crestor] 20 mg PO DAILY 02/27/18 07/05/18 Carvedilol 12.5 mg PO BID 04/28/18 07/05/18 Darbepoetin [Aranesp] 60 mcg SQ TH 04/28/18 07/05/18 Insulin DETEMIR [Levemir] 28 unit SQ HS 04/28/18 07/05/18 Insulin LISPRO [HumaLOG] 2 - 10 units SQ TIDWM 04/28/18 07/05/18 Lactobacillus Acidophilus/Fos 1 tab PO DAILY 04/28/18 07/05/18 [Acidophilus Probiotic Tablet] Omeprazole [PriLOSEC] 20 mg PO DAILY 04/28/18 07/05/18 Ondansetron HCl [Zofran] 4 mg PO Q12H PRN 04/28/18 07/05/18 Previous Rx's Medication Instructions Recorded Amitriptyline [Elavil] 50 mg PO HS tablet 03/24/18 Metoclopramide [Reglan] 5 mg PO TIDAC 3 Days #9 ud.liq 04/08/18 Sucralfate [Carafate] 1 gm PO QIDAC 3 Days #12 tablet 04/08/18 Renal Vitamin [Renal Caps Softgel] 1 mg PO DAILY capsule 04/17/18 Gentamicin Oint [Garamycin] 1 appl TP BID #1 tube 06/17/18 Gabapentin [Neurontin] 100 mg PO TID 2 Days #6 capsule 06/18/18 Isosorbide MONOnitrate (24 HR) 30 mg PO DAILY #30 tab.er.24h 07/04/18 [Imdur] Doxycycline 100 mg PO BID #14 capsule 07/08/18 OxyCODONE/APAP 5/325 [Percocet 1 each PO Q8HR PRN 2 Days #6 tablet 07/08/18 5/325 MG] Allergies Allergy/AdvReac Type Severity Reaction Status Date / Time piperacillin [From Zosyn] Allergy Anaphylaxis Verified 07/05/18 10:03 tazobactam [From Zosyn] Allergy Anaphylaxis Verified 07/05/18 10:03 All systems ED: reviewed and negative except as stated. Constitutional: Denies: fever, chills Eyes: Reports: as per HPI ENT ED: Reports: as per HPI Cardiovascular: Reports: dyspnea on exertion. Denies: chest pain, palpitations Respiratory: Reports: cough, dyspnea. Denies: wheezes, hemoptysis Gastrointestinal: Denies: abdominal pain, nausea, vomiting Genitourinary: Reports: as per HPI Musculoskeletal: Reports: as per HPI Integumentary: Reports: as per HPI Neurological: Denies: numbness, paresthesias Psychiatric: Reports: as per HPI Endocrine: Reports: as per HPI Hematological/Lymphatic: Reports: as per HPI Allergic/Immunologic: Reports: as per HPI Past Medical History - Past Medical History Attestation: Yes The following information was validated with the patient. Medical history: Reports: atrial fibrillation, CHF, COPD, coronary artery disease, dementia, diabetes, GI bleed, hyperlipidemia, hypertension, myocardial infarction, peripheral artery disease, renal disease, other Surgical history: Reports: angioplasty/stent, appendectomy, cholecystectomy, coronary bypass (CABG), hysterectomy, knee replacement, other, IVC filter Psychiatric history: Reports: anxiety, depression, schizophrenia, previous psychiatric hospitalization [facility] history: Reports: other - Social History Smoking Status: Current every day smoker Smokeless Tobacco Status: No Alcohol use: Reports: none Drug use: Reports: none Physical Exam - General Limitations: no limitations General appearance: alert, in no apparent distress - Head Head exam: atraumatic, normocephalic, normal inspection - Eye Eye exam: Present: normal appearance. Absent: scleral icterus, conjunctival injection - ENT ENT exam: mucous membranes dry - Neck Neck exam: Present: normal inspection, full ROM. Absent: tenderness, meningismus - Chest Chest inspection: Present: normal inspection, symmetric chest wall rise. Absent : tenderness, rash - Respiratory Respiratory exam: Present: other (Coarse breath sounds throughout, rhonchi in the bilateral bases) - Cardiovascular Cardiovascular exam: Present: normal rhythm, tachycardia, normal heart sounds - Abdominal Exam Abdominal exam: Present: soft, Non-Tender. Absent: distention, guarding, rebound - Neurological Exam Neurological exam: Present: alert, oriented X3 - Psychiatric Psychiatric exam: Present: normal affect, normal mood - Skin Skin exam: Present: warm, intact Course Course Narrative: 63-year-old female presenting for shortness of breath. Patient has been admitted multiple times for this in the past. States she has been getting progressively short of breath for the past 2-3 days. In the room patient is mid 90s oxygen saturation and mildly tachycardic with heart rate in the low 100s. Physical exam shows dry mucous membranes and coarse breath sounds throughout with rhonchi in the bilateral bases. Patient is alert and oriented 3. At this time we will work her up with concern for pneumonia versus CHF exacerbation. We will place the patient on BiPAP. Patient agrees with this plan. Disposition most likely admission but pending results. - Reevaluation(s) Reevaluation #1: Patient's laboratory analysis shows elevated BNP and decreased hemoglobin from last analysis to 7.9. Patient states she has needed blood transfusions in the past. Denies any hematuria, hematochezia or melena. We will obtain a stool occult as well at this time to rule out any GI bleed source. Patient denied BiPAP use. At this time will plan to admit the patient for fluid overload management. Patient is alert and oriented 3 in the room. Stable vital signs. Patient did receive 3 [id number] DuoNeb nebs states she is feeling moderately better. We spoke with the hospitalist electron tube assembler Dr. Gan who agrees to accept the patient at this time. Vital Signs Temperature 98.0 F 07/14/18 09:40 Pulse Rate 106 07/14/18 09:40 Respiratory Rate 22 07/14/18 09:40 Blood Pressure 120/62 07/14/18 09:40 O2 Sat by Pulse Oximetry 94 07/14/18 09:40 Temperature 98.0 F 07/14/18 09:40 Pulse Rate 98 07/14/18 09:59 Respiratory Rate 18 07/14/18 10:19 Blood Pressure 120/62 07/14/18 09:59 O2 Sat by Pulse Oximetry 97 07/14/18 10:19 Oxygen Delivery Oxygen Delivery Nasal Cannula Medical Decision Making - Lab Data Result diagrams: 07/14/18 10:06 07/14/18 10:06 Lab Results 07/14/18 07/14/18 07/14/18 Range/Units 10:06 10:06 10:06 WBC 8.3 (4.3-11.1) K/mcL RBC 3.23 L (3.82-4.97) M/mcL Hgb 7.9 L D (11.5-15.4) g/dL Hct 28.2 L (35.3-44.9) % MCV 87.3 (83.0-100.0) fL MCH 24.5 L (28.0-33.3) pg MCHC 28.0 L (31.6-35.5) g/dL RDW 18.7 H (11.5-14.5) % Plt Count 137 L (140-400) K/mcL MPV 11.9 (9.4-12.4) fL Immature Gran % 0.8 (0-4) % Seg Neutrophils % 80.0 % Lymphocytes % 10.8 % Monocytes % 6.9 % Eosinophils % 1.0 % Basophils % 0.5 % Neutrophils # 6.6 (1.6-8.9) K/mcL Lymphocytes # 0.9 (0.6-4.6) K/mcL Monocytes # 0.6 (0.0-1.3) K/mcL Eosinophils # 0.1 (0.0-0.6) K/mcL Basophils # 0.0 (0.0-0.2) K/mcL Platelet Estimate Normal (Normal) Polychromasia 1+ A (Not Present) Hypochromasia Present A (Not Present) Anisocytosis 1+ A (Not Present) Sodium 134 L (136-145) mEq/L Potassium 3.8 (3.5-5.1) mEq/L Chloride 99 (98-107) mEq/L Carbon Dioxide 27 (23-29) mEq/L BUN 23 (8-23) mg/dL Creatinine 2.84 H (0.60-1.20) mg/dL Est GFR ( Amer) 20 L (> 60) Est GFR (Non-Af Amer) 17 L (> 60) BUN/Creatinine Ratio 8 (6-26) Glucose 151 H (70-105) mg/dL Calculated Osmolality 285 (280-300) Calcium 8.7 (8.6-10.3) mg/dL Troponin I < 0.03 (< 0.04) ng/mL B-Natriuretic Peptide 501 H (Less than 100) pg/mL Specimen Rejected 07/14/18 Range/Units 10:06 WBC (4.3-11.1) K/mcL RBC (3.82-4.97) M/mcL Hgb (11.5-15.4) g/dL Hct (35.3-44.9) % MCV (83.0-100.0) fL MCH (28.0-33.3) pg MCHC (31.6-35.5) g/dL RDW (11.5-14.5) % Plt Count (140-400) K/mcL MPV (9.4-12.4) fL Immature Gran % (0-4) % Seg Neutrophils % % Lymphocytes % % Monocytes % % Eosinophils % % Basophils % % Neutrophils # (1.6-8.9) K/mcL Lymphocytes # (0.6-4.6) K/mcL Monocytes # (0.0-1.3) K/mcL Eosinophils # (0.0-0.6) K/mcL Basophils # (0.0-0.2) K/mcL Platelet Estimate (Normal) Polychromasia (Not Present) Hypochromasia (Not Present) Anisocytosis (Not Present) Sodium (136-145) mEq/L Potassium (3.5-5.1) mEq/L Chloride (98-107) mEq/L Carbon Dioxide (23-29) mEq/L BUN (8-23) mg/dL Creatinine (0.60-1.20) mg/dL Est GFR ( Amer) (> 60) Est GFR (Non-Af Amer) (> 60) BUN/Creatinine Ratio (6-26) Glucose (70-105) mg/dL Calculated Osmolality (280-300) Calcium (8.6-10.3) mg/dL Troponin I (< 0.04) ng/mL B-Natriuretic Peptide (Less than 100) pg/mL Specimen Rejected Accident - EKG Data EKG #1 EKG attestation: Yes I reviewed and interpreted this EKG. EKG results narrative: Itchy fibrillation. 95 bpm. QRS 87, QTC 464. No sign of acute ST segment elevation or ischemia. Compared to previous EKG completed on 07/05/2018 no significant changes noted Attestation Statement - Attestation Attestation: I, Scot Pinon DO, examined this patient [id number] and my medical decision-making was reviewed with Dr. Ro Del Angel, Resident Physician. I agree with the documented findings, disposition and treatment plan as described except to the extent set forth below. Please see my progress notes for details.
[2018-07-14] MEDS ORDERED: Ipratropium/Albuterol Neb 3 ML ONE (10:10)
[2018-07-14 10:23] LABS: Basophils % 0.5 %
[2018-07-14 10:25] LABS: Eosinophils # 0.1 K/mcL (0.0-0.6); Hematocrit 28.2 % (35.3-44.9); Hemoglobin 7.9 g/dL (11.5-15.4); Immature Granulocytes % 0.8 % (0-4); Lymphocytes # 0.9 K/mcL (0.6-4.6); Lymphocytes % 10.8 %; Mean Corpuscular Hemoglobin 24.5 pg (28.0-33.3); Mean Corpuscular Volume 87.3 fL (83.0-100.0); Mean Platelet Volume 11.9 fL (9.4-12.4); Monocytes # 0.6 K/mcL (0.0-1.3); Monocytes % 6.9 %; Platelet Count 137 K/mcL (140-400); Red Blood Count 3.23 M/mcL (3.82-4.97); Red Cell Distribution Width 18.7 % (11.5-14.5)
[2018-07-14 10:31] LABS: Neutrophils # 6.6 K/mcL (1.6-8.9)
--- NOTE | 2018-07-14 10:34 | Emergency Department Note ---
Disposition Clinical Impression: Cellulitis of left lower extremity, Atrial fibrillation, ESRD (end stage renal disease) on dialysis, Anemia, Acute CHF, Shortness of breath Disposition: Admitted As Inpatient Condition: Fair Forms: ED Satisfaction Letter Time of Disposition: 12:16 General Adult HPI - General Chief complaint: ED Shortness of Breath/Dyspnea Stated complaint: HERNÁN Time Seen by Provider: 07/14/18 09:38 Source: patient, EMS Mode of arrival: EMS Limitations: no limitations - History of Present Illness Pain Scale: 0 - Related Data Home Medications Medication Instructions Recorded Confirmed Colestipol HCl [Colestid] 1 gm PO BID 06/12/15 07/05/18 Calcium Acetate [Phos-LO] 1,334 mg PO TIDWM 09/06/16 07/05/18 ARIPiprazole [Abilify] 10 mg PO DAILY 09/13/17 07/05/18 Aspirin Enteric Coated [Aspirin EC] 81 mg PO DAILY 09/13/17 07/05/18 Budesonide/Formoterol 160/4.5 2 puff IH BIDR 09/13/17 07/05/18 [Symbicort 160/4.5] Cholecalciferol (Vitamin D3) 50,000 unit PO TH 09/13/17 07/05/18 [Vitamin D3] Sevelamer [Renvela] 800 mg PO DAILY 09/13/17 07/05/18 Albuterol Neb [AccuNeb] 0.63 mg IH Q6H PRN 10/18/17 07/05/18 amLODIPine [Norvasc] 5 mg PO DAILY 12/30/17 07/05/18 Clopidogrel [Plavix] 75 mg PO DAILY 02/03/18 07/05/18 Rosuvastatin Calcium [Crestor] 20 mg PO DAILY 02/27/18 07/05/18 Carvedilol 12.5 mg PO BID 04/28/18 07/05/18 Darbepoetin [Aranesp] 60 mcg SQ TH 04/28/18 07/05/18 Insulin DETEMIR [Levemir] 28 unit SQ HS 04/28/18 07/05/18 Insulin LISPRO [HumaLOG] 2 - 10 units SQ TIDWM 04/28/18 07/05/18 Lactobacillus Acidophilus/Fos 1 tab PO DAILY 04/28/18 07/05/18 [Acidophilus Probiotic Tablet] Omeprazole [PriLOSEC] 20 mg PO DAILY 04/28/18 07/05/18 Ondansetron HCl [Zofran] 4 mg PO Q12H PRN 04/28/18 07/05/18 Previous Rx's Medication Instructions Recorded Amitriptyline [Elavil] 50 mg PO HS tablet 03/24/18 Metoclopramide [Reglan] 5 mg PO TIDAC 3 Days #9 ud.liq 04/08/18 Sucralfate [Carafate] 1 gm PO QIDAC 3 Days #12 tablet 04/08/18 Renal Vitamin [Renal Caps Softgel] 1 mg PO DAILY capsule 04/17/18 Gentamicin Oint [Garamycin] 1 appl TP BID #1 tube 06/17/18 Gabapentin [Neurontin] 100 mg PO TID 2 Days #6 capsule 06/18/18 Isosorbide MONOnitrate (24 HR) 30 mg PO DAILY #30 tab.er.24h 07/04/18 [Imdur] Doxycycline 100 mg PO BID #14 capsule 07/08/18 OxyCODONE/APAP 5/325 [Percocet 1 each PO Q8HR PRN 2 Days #6 tablet 07/08/18 5/325 MG] Allergies Allergy/AdvReac Type Severity Reaction Status Date / Time piperacillin [From Zosyn] Allergy Anaphylaxis Verified 07/05/18 10:03 tazobactam [From Zosyn] Allergy Anaphylaxis Verified 07/05/18 10:03 Constitutional: Denies: fever, chills Eyes: Reports: as per HPI ENT ED: Reports: as per HPI Cardiovascular: Reports: dyspnea on exertion. Denies: chest pain, palpitations Respiratory: Reports: cough, dyspnea. Denies: wheezes, hemoptysis Gastrointestinal: Denies: abdominal pain, nausea, vomiting Genitourinary: Reports: as per HPI Musculoskeletal: Reports: as per HPI Integumentary: Reports: as per HPI Neurological: Denies: numbness, paresthesias Psychiatric: Reports: as per HPI Endocrine: Reports: as per HPI Hematological/Lymphatic: Reports: as per HPI Allergic/Immunologic: Reports: as per HPI Past Medical History - Past Medical History Medical history: Reports: atrial fibrillation, CHF, COPD, coronary artery disease, dementia, diabetes, GI bleed, hyperlipidemia, hypertension, myocardial infarction, peripheral artery disease, renal disease, other Surgical history: Reports: angioplasty/stent, appendectomy, cholecystectomy, coronary bypass (CABG), hysterectomy, knee replacement, other, IVC filter Psychiatric history: Reports: anxiety, depression, schizophrenia, previous 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 hospitalization [employer]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 - Social History Smoking Status: Current every day smoker Smokeless Tobacco Status: No Alcohol use: Reports: none Drug use: Reports: none Physical Exam - General Limitations: no limitations General appearance: alert, in no apparent distress Course Vital Signs Temperature 98.0 F 07/14/18 09:40 Pulse Rate 106 07/14/18 09:40 Respiratory Rate 22 07/14/18 09:40 Blood Pressure 120/62 07/14/18 09:40 O2 Sat by Pulse Oximetry 94 07/14/18 09:40 Temperature 98.0 F 07/14/18 09:40 Pulse Rate 98 07/14/18 09:59 Respiratory Rate 18 07/14/18 10:19 Blood Pressure 120/62 07/14/18 09:59 O2 Sat by Pulse Oximetry 97 07/14/18 10:19 Oxygen Delivery Oxygen Delivery Nasal Cannula Medical Decision Making - Lab Data Result diagrams: 07/14/18 10:06 07/14/18 10:06 Lab Results 07/14/18 07/14/18 07/14/18 Range/Units 10:06 10:06 10:06 WBC 8.3 (4.3-11.1) K/mcL RBC 3.23 L (3.82-4.97) M/mcL Hgb 7.9 L D (11.5-15.4) g/dL Hct 28.2 L (35.3-44.9) % MCV 87.3 (83.0-100.0) fL MCH 24.5 L (28.0-33.3) pg MCHC 28.0 L (31.6-35.5) g/dL RDW 18.7 H (11.5-14.5) % Plt Count 137 L (140-400) K/mcL MPV 11.9 (9.4-12.4) fL Immature Gran % 0.8 (0-4) % Seg Neutrophils % 80.0 % Lymphocytes % 10.8 % Monocytes % 6.9 % Eosinophils % 1.0 % Basophils % 0.5 % Neutrophils # 6.6 (1.6-8.9) K/mcL Lymphocytes # 0.9 (0.6-4.6) K/mcL Monocytes # 0.6 (0.0-1.3) K/mcL Eosinophils # 0.1 (0.0-0.6) K/mcL Basophils # 0.0 (0.0-0.2) K/mcL Platelet Estimate Normal (Normal) Polychromasia 1+ A (Not Present) Hypochromasia Present A (Not Present) Anisocytosis 1+ A (Not Present) Sodium 134 L (136-145) mEq/L Potassium 3.8 (3.5-5.1) mEq/L Chloride 99 (98-107) mEq/L Carbon Dioxide 27 (23-29) mEq/L BUN 23 (8-23) mg/dL Creatinine 2.84 H (0.60-1.20) mg/dL Est GFR ( Amer) 20 L (> 60) Est GFR (Non-Af Amer) 17 L (> 60) BUN/Creatinine Ratio 8 (6-26) Glucose 151 H (70-105) mg/dL Calculated Osmolality 285 (280-300) Calcium 8.7 (8.6-10.3) mg/dL Troponin I < 0.03 (< 0.04) ng/mL B-Natriuretic Peptide 501 H (Less than 100) pg/mL Specimen Rejected 07/14/18 Range/Units 10:06 WBC (4.3-11.1) K/mcL RBC (3.82-4.97) M/mcL Hgb (11.5-15.4) g/dL Hct (35.3-44.9) % MCV (83.0-100.0) fL MCH (28.0-33.3) pg MCHC (31.6-35.5) g/dL RDW (11.5-14.5) % Plt Count (140-400) K/mcL MPV (9.4-12.4) fL Immature Gran % (0-4) % Seg Neutrophils % % Lymphocytes % % Monocytes % % Eosinophils % % Basophils % % Neutrophils # (1.6-8.9) K/mcL Lymphocytes # (0.6-4.6) K/mcL Monocytes # (0.0-1.3) K/mcL Eosinophils # (0.0-0.6) K/mcL Basophils # (0.0-0.2) K/mcL Platelet Estimate (Normal) Polychromasia (Not Present) Hypochromasia (Not Present) Anisocytosis (Not Present) Sodium (136-145) mEq/L Potassium (3.5-5.1) mEq/L Chloride (98-107) mEq/L Carbon Dioxide (23-29) mEq/L BUN (8-23) mg/dL Creatinine (0.60-1.20) mg/dL Est GFR ( Amer) (> 60) Est GFR (Non-Af Amer) (> 60) BUN/Creatinine Ratio (6-26) Glucose (70-105) mg/dL Calculated Osmolality (280-300) Calcium (8.6-10.3) mg/dL Troponin I (< 0.04) ng/mL B-Natriuretic Peptide (Less than 100) pg/mL Specimen Rejected Accident Attestation Statement - Attestation Attestation: I, Scot Pinon DO, examined this patient [id number] and my medical decision-making was reviewed with Dr. Ro Del Angel, Resident Physician. I agree with the documented findings, disposition and treatment plan as described except to the extent set forth below. Please see my progress notes for details. 63-year-old female presents to the emergency room for evaluation of shortness of breath increased work of breathing. Patient was at her dialysis treatment this morning and completed the entire dialysis course. She has presented multiple times emergency room for similar issues. She has been admitted several times for sepsis evaluation as well as hypoxia and shortness of breath. Patient on presentation here is mentating appropriately she does have some increased work of breathing but is maintaining her airway on her own. She typically is on 3 L of oxygen by nasal cannula. She denies any falls trauma or injuries. She denies any chest pain fevers chills nausea vomiting or diarrhea. No headache or vision change. Her main complaint is shortness of breath and orthopnea. Vital signs on presentation otherwise unremarkable outside of slight tachycardia. Patient has clear lungs heart is regular. Dialysis site appears to be stable at this time with no bleeding. She has good pulses in the upper extremities. Patient was offered continuation of breathing treatments as well as BiPAP in the emergency room. She declined the BiPAP will accommodate the breathing treatments. Vital signs will be monitored closely. Patient is otherwise in no distress. Disposition be determined once the full workup and treatment course I been established. She does have pitting edema in the bilateral lower extremities with venous stasis skin related issues and left lower extremities wrapped and dressed. The dressing will be left in place at this time considering he does not appear to be contributing to the patient's symptoms and presentation this point. We will continue to monitor his symptoms are controlled. See detailed recommendation of the physical exam, medical intervention, medical decision-making and disposition in the resident physician' s note [id number] Patient has approximately 1-1/2 g hemoglobin drop. Today with unknown etiology. Could be secondary to dialysis. We will do a rectal occult testing here. Lactic acid is still pending. The remainder of her labs are completely normal. Patient is showing what appears to be stable pleural effusion versus pulmonary congestion consistent with CHF secondary to dialysis and volume overload. Bedside cardiac echocardiogram will be completed to evaluate for any signs of pericardial fluid and patient will be admitted for symptomatically control and observation. Patient is otherwise clinically stable this time. 1200 Patient was accepted by the hospitalist Dr. Gan he had no other concerns or issues at this time. A bedside point of care ultrasound is being completed and we will review this as well as a lactic acid and Hemoccult testing prior to the patient coming up to the floor. Otherwise she stable at this point with varus found to be anemia of chronic kidney disease and a left-sided pleural effusion. Patient is otherwise clinically stable will be admitted for continuation of care
[2018-07-14 10:42] LABS: BUN/Creatinine Ratio 8 (6-26); Blood Urea Nitrogen 23 mg/dL (8-23); Calcium 8.7 mg/dL (8.6-10.3); Carbon Dioxide 27 mEq/L (23-29); Chloride 99 mEq/L (98-107); Glucose 151 mg/dL (70-105); Osmolality,Calculated 285 (280-300); Potassium 3.8 mEq/L (3.5-5.1); Sodium 134 mEq/L (136-145); Troponin I < 0.03 ng/mL (< 0.04); eGFR For Non-African Americans 17 (> 60)
[2018-07-14 10:52] LABS: Anisocytosis 1+ (Not Present); Hypochromasia Present (Not Present); Platelet Estimate Normal (Normal); Polychromasia 1+ (Not Present)
[2018-07-14] MEDS ORDERED: Naloxone 0.4 MG/ML INJ IVP PRN (13:50)
[2018-07-14] MEDS ORDERED: D5% in Water 1,000 ML IVC PRN (13:56)
[2018-07-14] MEDS ORDERED: *HR* Dextrose 50 % in Water (Syg) 50 ML SYRINGE IVP PRN (13:56)
[2018-07-14] MEDS ORDERED: Dextrose Gel 15 GM/37.5 ML TUBE PO PRN ×2 (13:56)
[2018-07-14] MEDS ORDERED: Ondansetron ODT 4 MG TAB.RAPDIS PO PRN (13:58)
--- NOTE | 2018-07-14 14:23 | Internal Med History&Physical ---
Date of Encounter: 07/14/18 Time of Encounter: 12:45 Internal Medicine - H&P: HPI Chief complaint: Shortness of breath Admitted From: Home Plans for Post Hospital Care: Home History of present illness: Ms. Riley is a 63 year old female with past medical history significant for ESRD on dialysis, COPD, atrial fibrillation, CHF, CAD with stents and CABG, hypertension, hyperlipidemia, and diabetes who presents from dialysis for complaints of shortness of breath that started during dialysis this morning. Shortness of breath is accompanied by non productive cough which she has intermittently. Denies any chest pain, abdominal pain, headache, nausea, vomiting, bowel or bladder changes. Has presented similarly from dialysis in the past. Denies any exacerbating factors, but states oxygen and breathing treatments received in ER helped improve her symptoms. Wears 3lpm nasal canula continuously at [facility]. Receives dialysis Tuesdays, , and Wednesdays. Does still produce small amount of urine about every other day. Has wounds on admission to coccyx and left lower extremity. Also has chronic venous stasis dermatitis to bilateral upper and lower extremities. Follows with wound care at [facility] and last visit was yesterday. Blood sugars typically range in the 200's , which she reports is recently improved for her from 300-400's. Is unsure what her blood pressures typically range. Discussed patient with Dr Gan. Past Med Surg Social Fam HX - Past Medical History Medical history: atrial fibrillation, CHF, COPD, coronary artery disease, diabetes, GI bleed, hyperlipidemia, hypertension, myocardial infarction, peripheral artery disease, renal disease, other Additional medical history: AV fistula for dialysis ++ Psychiatric history: anxiety, depression, schizophrenia, previous psychiatric hospitalization - Past Surgical History Surgical History: angioplasty/stent, appendectomy, cholecystectomy, coronary bypass (CABG), hysterectomy, knee replacement, other, IVC filter Additional surgical history: left arm fistulogram with covered stent placement left basilic vein 2016. Hysterectomy 1996. kidney stones 1996. appendix 1970. tonsils unsure date. double Bypass 1998. stents x5 unsure date. right wrist 2017 - Social History Smoking Status: Current every day smoker Smokeless Tobacco Status: No Alcohol use: none Drug use: none - Family History Father Family Member Ethnicity: Non- Living Status: Hx Family Cardiac Disorders: Yes Hx Family Respiratory Disorders: Yes Hx Family Cancer: Yes (Polycythemia) Hx Family Endocrine Disorder: Yes (DM) Mother Family Member Ethnicity: Non- Living Status: Still Living Hx Family Cardiac Disorders: Yes Hx Family Respiratory Disorders: Yes (asthma, COPD) Brother Adopted: No Family Member Ethnicity: Non- Living Status: Still Living Hx Family Cardiac Disorders: No Hx Family Respiratory Disorders: No Hx Family Cancer: No Hx Family GI Disorders: No Hx Family Endocrine Disorder: No Hx Family Neuromuscular Disorders: No Hx Family Neurologic Disorders: No Hx Family HEENT Disorders: No Hx Family Autoimmune Disorders: No Sister Adopted: No Family Member Ethnicity: Non- Living Status: Still Living Hx Family Cardiac Disorders: Yes Hx Family Respiratory Disorders: No Hx Family Cancer: No Hx Family GI Disorders: No Hx Family Endocrine Disorder: Yes Hx Family Neuromuscular Disorders: No Hx Family Neurologic Disorders: No Hx Family HEENT Disorders: No Hx Family Autoimmune Disorders: No Internal Medicine - H&P: Meds Colestipol HCl [Colestid] 1 gm PO BID 06/12/15 [History] Calcium Acetate [Phos-LO] 1,334 mg PO TIDWM 09/06/16 [History] ARIPiprazole [Abilify] 10 mg PO DAILY 09/13/17 [History] Aspirin Enteric Coated [Aspirin EC] 81 mg PO DAILY 09/13/17 [History] Budesonide/Formoterol 160/4.5 [Symbicort 160/4.5] 2 puff IH BIDR 09/13/17 [ History] Cholecalciferol (Vitamin D3) [Vitamin D3] 50,000 unit PO TH 09/13/17 [History] Sevelamer [Renvela] 800 mg PO DAILY 09/13/17 [History] Albuterol Neb [AccuNeb] 0.63 mg IH Q6H PRN 10/18/17 [History] amLODIPine [Norvasc] 5 mg PO DAILY 12/30/17 [History] Clopidogrel [Plavix] 75 mg PO DAILY 02/03/18 [History] Rosuvastatin Calcium [Crestor] 20 mg PO DAILY 02/27/18 [History] Amitriptyline [Elavil] 50 mg PO HS tablet 03/24/18 [Rx] Metoclopramide [Reglan] 5 mg PO TIDAC 3 Days #9 ud.liq 04/08/18 [Rx] Sucralfate [Carafate] 1 gm PO QIDAC 3 Days #12 tablet 04/08/18 [Rx] Renal Vitamin [Renal Caps Softgel] 1 mg PO DAILY capsule 04/17/18 [Rx] Carvedilol 12.5 mg PO BID 04/28/18 [History] Darbepoetin [Aranesp] 60 mcg SQ TH 04/28/18 [History] Insulin DETEMIR [Levemir] 28 unit SQ HS 04/28/18 [History] Insulin LISPRO [HumaLOG] 2 - 10 units SQ TIDWM 04/28/18 [History] Lactobacillus Acidophilus/Fos [Acidophilus Probiotic Tablet] 1 tab PO DAILY [History] Omeprazole [PriLOSEC] 20 mg PO DAILY 04/28/18 [History] Ondansetron HCl [Zofran] 4 mg PO Q12H PRN 04/28/18 [History] Gentamicin Oint [Garamycin] 1 appl TP BID #1 tube 06/17/18 [Rx] Gabapentin [Neurontin] 100 mg PO TID 2 Days #6 capsule 06/18/18 [Rx] Isosorbide MONOnitrate (24 HR) [Imdur] 30 mg PO DAILY #30 tab.er.24h 07/04/18 [ Rx] Doxycycline 100 mg PO BID #14 capsule 07/08/18 [Rx] OxyCODONE/APAP 5/325 [Percocet 5/325 MG] 1 each PO Q8HR PRN 2 Days #6 tablet [Rx] 3 Allergy/AdvReac Type Severity Reaction Status Date / Time piperacillin [From Zosyn] Allergy Anaphylaxis Verified 07/05/18 10:03 tazobactam [From Zosyn] Allergy Anaphylaxis Verified 07/05/18 10:03 All Systems PM: A 10-system review of systems was performed and is negative for pertinent findings except as documented above in the HPI. - Constitutional Vitals: Temp Pulse Resp BP Pulse Ox 98.6 F 96 18 101/56 96 07/14/18 14:02 07/14/18 14:02 07/14/18 14:02 07/14/18 14:02 07/14/18 14:02 Exam: General: Alert and oriented. Skin:Normal color, no rash. Venous stasis dermatitis noted to bilateral upper and lower extremities. Dry and intact dressing to left lower extremity and coccyx. HEENT:Pupils equal, round and reactive. Cardiovascular:Heart sounds distant. Normal S1 & S2, no rubs, murmurs or gallops. No JVD. Rhythm irregular. Lungs:Breath sounds distant and decreased, no wheezes or crackles. Abdomen:Soft, non-tender, no rigidity. Extremities:No deformity, tenderness, clubbing. 2+ pitting edema to bilateral lower extremities. Neurological:Normal cognition and motor skills. Pulses:Carotid and radial pulses normal +2. Rest of the physical exam is non contributory. 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 Duoneb treatments as needed. O2 nasal canula 3lpm. BIPAP currently being refused by patient. (2) ESRD (end stage renal disease) on dialysis Current Visit: Yes Status: Chronic Assessment and plan: Nephrology consulted by ER. Renal diet. Fluid restriction. Strict I/O's. Repeat labs in a.m. (3) Anemia Current Visit: Yes Status: Acute Assessment and plan: Type and screen completed in ER. Occult stool negative in ER. Hold anticoagulation. Repeat labs in a.m. Qualifiers: Anemia type: unspecified type Qualified Code(s): D64.9 - Anemia, unspecified (4) Wounds, multiple Current Visit: Yes Status: Chronic Assessment and plan: Most recent wound care in F completed yesterday. Wound care consult ordered. (5) Diabetes mellitus Current Visit: Yes Status: Chronic Assessment and plan: ACHS accucheck. Diabetic diet. Sliding scale insulin. Lantus at night. 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
--- NOTE | 2018-07-14 15:09 | Electrocardiograph Report ---
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
--- NOTE | 2018-07-14 16:54 | Nephrology Consult Note ---
<Diann Norwood - Last Filed: 07/14/18 17:02> Date of Encounter: 07/14/18 Time of Encounter: 14:00 Assessment and Plan (4) Acute CHF Status: Acute 1.5 Liter fluid restriction. Strict I/O. Cardiac/renal diet. Qualifiers: Heart failure type: unspecified Qualified Code(s): I50.9 - Heart failure, unspecified (6) ESRD (end stage renal disease) on dialysis Status: Chronic Current regimen is TTS at [facility]. Last HD session was today, approximately and hour and a half. Will plan on UF or HD tomorrow. Avoid nephrotoxins and renal dose (7) SOB (shortness of breath) Status: Acute on 3 liters 02 per n/c. History of Present Illness - Reason for Consult Consult date: 07/14/18 end stage renal disease - Chief Complaint shortness of breath - History of Present Illness Ms. Riley is a 63 year old female with past medical history significant for ESRD on dialysis, COPD, atrial fibrillation, CHF, CAD with stents and CABG, hypertension, hyperlipidemia, and diabetes. ESRD regimen is TTS at [facility]. She received about an hour and a half HD today and a full treatment on Wednesday. Pt began feeling short of breath at HD and was transported to [place] [facility] for evaluation. She has had several admission in the past month for similar symptoms. Denies CP, does admit to still feeling short of breath. Wears 3 Liters O2 per n/c at ECF, is on this now. SPO2 at 94% with exam. Denies Na usea/vomiting/diarrhea. Does still make some urine about every other day. Since short HD was completed today and electrolytes are WNL no need for emergent dialysis today. Recommend a 1.5 Liter fluid restriction and strict I/O. Avoid nephrotoxins and renal dose all medications. Past Med Surg Social Fam HX - Past Medical History Medical history: atrial fibrillation, CHF, COPD, coronary artery disease, diabetes, GI bleed, hyperlipidemia, hypertension, myocardial infarction, peripheral artery disease, renal disease, other Additional medical history: AV fistula for dialysis ++ Psychiatric history: anxiety, depression, schizophrenia, previous psychiatric hospitalization - Past Surgical History Surgical History: angioplasty/stent, appendectomy, cholecystectomy, coronary bypass (CABG), hysterectomy, knee replacement, other, IVC filter Additional surgical history: left arm fistulogram with covered stent placement left basilic vein 2017. Hysterectomy 1996. kidney stones 1996. appendix 1970. tonsils unsure date. double Bypass 1998. stents x5 unsure date. right wrist 2017 - Social History Smoking Status: Current every day smoker Smokeless Tobacco Status: No Alcohol use: none Drug use: none - Family History Brother Adopted: No Family Member Ethnicity: Non- Living Status: Still Living Hx Family Cardiac Disorders: No Hx Family Respiratory Disorders: No Hx Family Cancer: No Hx Family GI Disorders: No Hx Family Endocrine Disorder: No Hx Family Neuromuscular Disorders: No Hx Family Neurologic Disorders: No Hx Family HEENT Disorders: No Hx Family Autoimmune Disorders: No Father Family Member Ethnicity: Non- Living Status: Hx Family Cardiac Disorders: Yes Hx Family Respiratory Disorders: Yes Hx Family Cancer: Yes (Polycythemia) Hx Family Endocrine Disorder: Yes (DM) Mother Family Member Ethnicity: Non- Living Status: Still Living Hx Family Cardiac Disorders: Yes Hx Family Respiratory Disorders: Yes (asthma, COPD) Sister Adopted: No Family Member Ethnicity: Non- Living Status: Still Living Hx Family Cardiac Disorders: Yes Hx Family Respiratory Disorders: No Hx Family Cancer: No Hx Family GI Disorders: No Hx Family Endocrine Disorder: Yes Hx Family Neuromuscular Disorders: No Hx Family Neurologic Disorders: No Hx Family HEENT Disorders: No Hx Family Autoimmune Disorders: No Medications and Allergies RX: Colestipol HCl [Colestid] 1 gm PO BID 06/12/15 [History] RX: Calcium Acetate [Phos-LO] 1,334 mg PO TIDWM 09/06/16 [History] RX: ARIPiprazole [Abilify] 10 mg PO DAILY 09/13/17 [History] RX: Aspirin Enteric Coated [Aspirin EC] 81 mg PO DAILY 09/13/17 [History] RX: Budesonide/Formoterol 160/4.5 [Symbicort 160/4.5] 2 puff IH BIDR 09/13/17 [History] RX: Cholecalciferol (Vitamin D3) [Vitamin D3] 50,000 unit PO TH 09/13/17 [History] RX: Sevelamer [Renvela] 800 mg PO DAILY 09/13/17 [History] RX: Albuterol Neb [AccuNeb] 0.63 mg IH Q6H PRN 10/18/17 [History] RX: amLODIPine [Norvasc] 5 mg PO DAILY 12/30/17 [History] RX: Clopidogrel [Plavix] 75 mg PO DAILY 02/03/18 [History] RX: Rosuvastatin Calcium [Crestor] 20 mg PO DAILY 02/27/18 [History] RX: Amitriptyline [Elavil] 50 mg PO HS tablet 03/24/18 [Rx] RX: Metoclopramide [Reglan] 5 mg PO TIDAC 3 Days #9 ud.liq 04/08/18 [Rx] RX: Sucralfate [Carafate] 1 gm PO QIDAC 3 Days #12 tablet 04/08/18 [Rx] RX: Renal Vitamin [Renal Caps Softgel] 1 mg PO DAILY capsule 04/17/18 [Rx] RX: Carvedilol 12.5 mg PO BID 04/28/18 [History] RX: Darbepoetin [Aranesp] 60 mcg SQ TH 04/28/18 [History] RX: Insulin DETEMIR [Levemir] 28 unit SQ HS 04/28/18 [History] RX: Insulin LISPRO [HumaLOG] 2 - 10 units SQ TIDWM 04/28/18 [History] RX: Lactobacillus Acidophilus/Fos [Acidophilus Probiotic Tablet] 1 tab PO DAILY 04/28/18 [History] RX: Omeprazole [PriLOSEC] 20 mg PO DAILY 04/28/18 [History] RX: Ondansetron HCl [Zofran] 4 mg PO Q12H PRN 04/28/18 [History] RX: Gentamicin Oint [Garamycin] 1 appl TP BID #1 tube 06/17/18 [Rx] RX: Isosorbide MONOnitrate (24 HR) [Imdur] 30 mg PO DAILY #30 tab.er.24h 07/04/18 [Rx] RX: Benzonatate [Tessalon] 200 mg PO TID PRN 10 Days #30 capsule 07/22/18 [Rx] RX: Gabapentin [Neurontin] 100 mg PO TID 4 Days #12 capsule 07/22/18 [Rx] RX: OxyCODONE/APAP 5/325 [Percocet 5/325 MG] 1 each PO Q8HR PRN 2 Days #6 tablet 07/22/18 [Rx] RX: Ertapenem [INVanz] 500 mg IVPB DAILY #7 vial 07/26/18 [Rx] Allergy/AdvReac Type Severity Reaction Status Date / Time piperacillin [From Zosyn] Allergy Anaphylaxis Verified 07/05/18 10:03 tazobactam [From Zosyn] Allergy Anaphylaxis Verified 07/05/18 10:03 Review of Systems Constitutional: weight gain, no chills, no fatigue, no fever(s) Cardiovascular: dyspnea, edema, no chest pain Respiratory: cough, no wheezing Gastrointestinal: no change in bowel habits, no diarrhea, no nausea, no vomiting Exam - Vital Signs Vital signs: Initial Vital Signs Temp Pulse Resp BP Pulse Ox 98.0 F 106 22 120/62 94 07/14/18 09:40 07/14/18 09:40 07/14/18 09:40 07/14/18 09:40 07/14/18 09:40 Vital Signs - Last 8 Hours Temp Pulse Resp BP Pulse Ox 07/14/18 14:02 98.6 F 96 18 101/56 96 07/14/18 13:52 98.2 F 96 18 101/56 96 07/14/18 13:48 96 07/14/18 13:38 96 - General Appearance General appearance: well-developed, well-nourished, obese EENT: ATNC, hearing intact, vision intact Neck: supple Respiratory: clear Cardiology: edema (+1 tight pitting edema noted to entire lower extremities. ), normal S1, normal S2 - Dialysis Access Dialysis Vascular Access: Arteriovenous Fistula thrill: Yes bruit: Yes Gastrointestinal: normoactive bowel sounds, no tenderness, no guarding Integumentary: no rash, warm and dry Neurologic: alert and oriented x3 Psychiatric: mood/affect appropriate, cooperative Results - Lab Results 07/14/18 10:06 07/14/18 10:06 Most recent lab results Calcium 8.7 mg/dL (8.6-10.3) 07/14/18 10:06 Consult Discharge Plan - Plan Referrals: Tristen Quintana MD [Primary Care Provider] - (Please follow up with ECF PCP) Prescriptions: RX: OxyCODONE/APAP 5/325 [Percocet 5/325 MG] 1 each PO Q8HR PRN 2 Days #6 tablet PRN Reason: Pain RX: Benzonatate [Tessalon] 200 mg PO TID PRN 10 Days #30 capsule PRN Reason: Cough RX: Gabapentin [Neurontin] 100 mg PO TID 4 Days #12 capsule <Luma Mendez - Last Filed: 08/03/18 14:24> Assessment and Plan (1) COPD (chronic obstructive pulmonary disease) Status: Chronic Qualifiers: COPD type: unspecified COPD Qualified Code(s): J44.9 - Chronic obstructive pulmonary disease, unspecified (2) Hyperkalemia Status: Chronic (3) Hyponatremia Status: Chronic (4) Acute CHF Status: Acute Qualifiers: Heart failure type: unspecified Qualified Code(s): I50.9 - Heart failure, unspecified (5) Anemia Status: Chronic Qualifiers: Anemia type: due to chronic kidney disease Chronic kidney disease stage: on chronic dialysis Qualified Code(s): N18.6 - End stage renal disease; D63.1 - Anemia in chronic kidney disease; Z99.2 - Dependence on renal dialysis (6) ESRD (end stage renal disease) on dialysis Status: Chronic Exam - Vital Signs Vital signs: Initial Vital Signs Temp Pulse Resp BP Pulse Ox 98.0 F 106 22 120/62 94 07/14/18 09:40 07/14/18 09:40 07/14/18 09:40 07/14/18 09:40 07/14/18 09:40 Results - Lab Results 07/22/18 03:33 07/22/18 03:33 Most recent lab results Calcium 8.7 mg/dL (8.6-10.3) 07/22/18 03:33 - Attending Attestation I examined this patient and my medical decision-making was reviewed with the Resident Physician/DRAW END HAND. I agree with the documented findings, disposition and treatment plan as described except to the extent set forth below. In brief; 63 y o female with PMH of ESRD on HD with numerous other comorbidities with a history of recurrent hospital admissions every month for similar diagnoses readmitted after a recent discharge this time with SOB while receiving HD approx. 1.5hrs into treatment. Of note, pt did undergo extensive cardiac workup including LHC earlier this year. Renal consulted for ESRD management. Pt seen and examined and once more does not have much insight as to the reason for her hospitalization except that she "feels bad". Of note, pt has been having lots of fluid gains with LE edema in between treatments. Her exam confirms LE edema worse than previous. Pt has admitted in the past to dietary indiscretions but does not want to discuss much today. Will plan for UF or HD tomorrow d epending on her lytes with UF goal of at least 4-5kg. For today, no acute indications.
[2018-07-14] MEDS: Insulin LISPRO 300 UNITS/3 ML VIAL SQ SCH ×2 (17:31→22:33)
[2018-07-14] MEDS: Gabapentin 100 MG CAPSULE PO SCH ×2 (17:31→22:33)
[2018-07-14] MEDS: *HR* OxyCODONE/APAP 5/325 TABLET PO PRN (18:09)
[2018-07-14] MEDS: Sucralfate 1 GM TABLET PO SCH ×2 (18:09→22:33)
[2018-07-14] MEDS: Calcium Acetate 667 MG CAPSULE PO SCH (18:09)
[2018-07-14] MEDS: Metoclopramide 10 MG/10 ML UD.LIQ PO SCH (18:10)
[2018-07-14] MEDS: Budesonide/Formoterol 160/4.5 1 PUFF INH IH SCH (19:43)
[2018-07-14] MEDS: Ipratropium/Albuterol Neb 3 ML IH PRN (19:44)
[2018-07-14] MEDS: Gentamicin Oint 15 GM TUBE TP SCH (22:34)
[2018-07-14] MEDS: Insulin DETEMIR 100 UNIT/ML X5UNITS SQ SCH (23:18)
[2018-07-15] MEDS: Ipratropium/Albuterol Neb 3 ML IH PRN ×2 (05:43→18:25)
[2018-07-15 06:44] LABS: Platelet Count 141 K/mcL (140-400)
[2018-07-15 06:45] LABS: Hematocrit 29.8 % (35.3-44.9); Hemoglobin 8.6 g/dL (11.5-15.4); Mean Corpuscular HGB Conc 28.9 g/dL (31.6-35.5); Mean Corpuscular Hemoglobin 24.6 pg (28.0-33.3); Mean Corpuscular Volume 85.4 fL (83.0-100.0); Mean Platelet Volume 12.1 fL (9.4-12.4); Red Blood Count 3.49 M/mcL (3.82-4.97); Red Cell Distribution Width 18.6 % (11.5-14.5)
[2018-07-15 07:11] LABS: Potassium 4.6 mEq/L (3.5-5.1)
[2018-07-15] MEDS ORDERED: 0.9 % Sodium Chloride 250 ML IVC PRN (07:40)
[2018-07-15 08:22] LABS: Lymphocytes # 3.2 K/mcL (0.6-4.6); Monocytes # 0.3 K/mcL (0.0-1.3); Neutrophils # 4.1 K/mcL (1.6-8.9)
[2018-07-15 08:23] LABS: Hypochromasia Present (Not Present); Platelet Estimate Normal (Normal)
[2018-07-15] MEDS ORDERED: 0.9 % Sodium Chloride 1,000 ML ONE (08:32)
[2018-07-15] MEDS: 0.9 % Sodium Chloride 1,000 ML PRIME SCH (08:40)
[2018-07-15] MEDS: Gentamicin Oint 15 GM TUBE TP SCH ×2 (09:00→20:02)
[2018-07-15] MEDS: Budesonide/Formoterol 160/4.5 1 PUFF INH IH SCH ×2 (10:13→19:45)
--- NOTE | 2018-07-15 10:20 | Internal Med Progress Note ---
Hospitalist Progress Note - Encounter Date of Encounter: 07/15/18 Time of Encounter: 10:20 - Subjective Interval History: Seen and evaluated during HD/UF She states she had SOB during HD on admission She now also has cough, unproductive, which kept her awake all night She is not febrile and has no leukocytosis CXR on admission showed pulm edema She is otherwise at her baseline, will rpt CXR a.m - Exam Vitals: Temp Pulse Resp BP Pulse Ox 97.4 F L 84 18 125/63 99 07/15/18 08:50 07/15/18 07:13 07/15/18 08:50 07/15/18 08:50 07/15/18 07:13 Exam: General: Alert and oriented. Skin:Normal color, no rash. Venous stasis dermatitis noted to bilateral upper and lower extremities. Dry and intact dressing to left lower extremity and coccyx. HEENT:Pupils equal, round and reactive. Cardiovascular:Heart sounds distant. Normal S1 & S2, no rubs, murmurs or gallops. No JVD. Rhythm irregular. Lungs:Breath sounds distant and decreased, no wheezes or crackles. Abdomen:Soft, non-tender, no rigidity. Extremities:No deformity, tenderness, clubbing. 2+ pitting edema to bilateral lower extremities. LUE with bloody blisters and surrounding bruising, per patient, this has been present since the last admission Neurological:Normal cognition and motor skills. Pulses:Carotid and radial pulses normal +2. - Assessment and Plan (1) SOB (shortness of breath) Current Visit: Yes Status: Acute Assessment and Plan: Continuous classroom monitor. Duoneb treatments as needed. O2 nasal canula 3lpm. BIPAP currently being refused by patient. Improvement expected with UF Will repeat CXR a.m (2) Anemia Current Visit: Yes Status: Chronic Assessment and Plan: Type and screen completed in ER. Occult stool negative in ER. Hb at baseline Continue home meds (3) ESRD (end stage renal disease) on dialysis Current Visit: Yes Status: Chronic Assessment and Plan: HD/UF per renal (4) Wounds, multiple Current Visit: Yes Status: Chronic Assessment and Plan: Most recent wound care in ECF completed yesterday. Wound care consult ordered. (5) Diabetes mellitus Current Visit: Yes Status: Chronic Assessment and Plan: ACHS accucheck. Diabetic diet. Sliding scale insulin. Lantus at night. - Time Spent with Patient Total time spent is greater than 50% in coordination of care (as documented) at patient's floor/unit and/or counseling patient: Plan of Care Discussed with: patient Internal Medicine: Result - Labs CBC & Chem 7: 07/15/18 06:27 07/15/18 06:27 Labs: Short CBC 07/15/18 Range/Units 06:27 WBC 7.5 (4.3-11.1) K/mcL Hgb 8.6 L (11.5-15.4) g/dL Hct 29.8 L (35.3-44.9) % Plt Count 141 (140-400) K/mcL Neutrophils # 4.1 (1.6-8.9) K/mcL BMP 07/15/18 06:27 Sodium 131 L Potassium 4.6 Chloride 102 Carbon Dioxide 21 L BUN 27 H Creatinine 3.61 H Glucose 144 H Calcium 9.0 Consult Discharge Plan - Plan Referrals: Tristen Quintana MD [Primary Care Provider] - (2) Anemia Qualifiers: Anemia type: unspecified type Qualified Code(s): D64.9 - Anemia, unspecified (5) Diabetes mellitus Qualifiers: Diabetes mellitus type: type 2 Diabetes mellitus senior care insulin use: with senior care use Diabetes mellitus complication status: with skin complications Diabetes mellitus complication detail: with other skin complication Qualified Code(s): E11.628 - Type 2 diabetes mellitus with other skin complications; Z79.4 - long term care administrator (current) use of insulin
[2018-07-15] MEDS: Insulin LISPRO 300 UNITS/3 ML VIAL SQ SCH ×4 (12:40→20:29)
[2018-07-15] MEDS: Metoclopramide 10 MG/10 ML UD.LIQ PO SCH ×4 (12:48→17:20)
[2018-07-15] MEDS: Sucralfate 1 GM TABLET PO SCH ×4 (12:49→23:01)
[2018-07-15] MEDS: Isosorbide MONOnitrate (24 HR) 30 MG TAB.ER.24H PO SCH (12:49)
[2018-07-15] MEDS: Lactobacillus 1 EACH CAP.SPRINK PO SCH (12:50)
[2018-07-15] MEDS: Renal Vitamin 1 CAP CAPSULE PO SCH ×3 (12:50→13:01)
[2018-07-15] MEDS: ARIPiprazole 10 MG TABLET PO SCH (12:50)
[2018-07-15] MEDS: Gabapentin 100 MG CAPSULE PO SCH ×3 (12:50→20:02)
[2018-07-15] MEDS: Calcium Acetate 667 MG CAPSULE PO SCH ×3 (12:50→17:19)
[2018-07-15] MEDS: amLODIPine 5 MG TABLET PO SCH (12:50)
[2018-07-15] MEDS: Cholecalciferol (D-3) 1,000 UNIT TABLET PO SCH (12:50)
[2018-07-15] MEDS: Insulin DETEMIR 100 UNIT/ML X5UNITS SQ SCH (20:04)
--- NOTE | 2018-07-15 22:27 | Nephrology Progress Note ---
Date of Encounter: 07/15/18 Time of Encounter: 12:00 - Assessment and Plan (1) ESRD (end stage renal disease) on dialysis Current Visit: Yes Status: Chronic Continue UF with goal 5kg today. Counselled again on adherence to strict fluid restriction and low sodium diet Plan HD tomorrow as well Lytes stable (2) SOB (shortness of breath) Current Visit: Yes Status: Acute Due to noncompliance with diet/fluid restriction. Should improve with UF today. (3) Acute CHF Current Visit: Yes Status: Acute 1.5 Liter fluid restriction. Strict I/O. Cardiac/renal diet. Qualifiers: Heart failure type: unspecified Qualified Code(s): I50.9 - Heart failure, unspecified (4) Anemia Current Visit: Yes Status: Chronic Hggb noted at 8.6, stool guaiac negative. Possibly ESRD related, pt not receiving appropriate EPO/ iv iron regimen due to frequent hospital admissions Qualifiers: Anemia type: unspecified type Qualified Code(s): D64.9 - Anemia, unspecified Subjective Interval history: Pt seen and examined reports very depressed and with SOB, seen in HD unit receiving UF with 4kg of goal 5kg already removed. Objective - Vital Signs Vital signs: Vital Signs Temp Pulse Resp BP Pulse Ox 07/15/18 20:41 97.1 F L 112 17 139/75 95 07/15/18 19:48 20 95 07/15/18 18:27 24 91 07/15/18 15:13 98.1 F 89 18 121/61 94 07/15/18 12:11 97.4 F L 18 118/45 07/15/18 11:50 111/52 07/15/18 11:35 114/44 07/15/18 11:20 106/51 07/15/18 11:05 147/43 07/15/18 10:50 142/69 07/15/18 10:35 138/60 07/15/18 10:20 130/60 07/15/18 10:05 148/65 07/15/18 09:50 130/80 07/15/18 09:35 110/53 07/15/18 09:20 129/51 07/15/18 09:05 115/61 07/15/18 08:50 97.4 F L 18 125/63 07/15/18 07:13 97.8 F 84 18 107/59 99 07/15/18 05:46 18 100 07/14/18 23:35 98.1 F 88 18 99/51 100 Intake and Output 07/15/18 07/15/18 07/15/18 07:59 15:59 23:59 Intake Total 1080 / 1080 480 / 480 Output Total 5600 / 5600 Balance -4520 / -4520 480 / 480 Intake: Oral 480 / 480 480 / 480 Intake, Rinseback and Flushes 600 / 600 Output: Urine 0 / 0 Total Dialysis (HD) Output 5600 / 5600 Other: Meal Lunch Dinner Percent of Meal Consumed 100% 100% Stool Size Large Stool Consistency formed Stool Color Brown # Bowel Movements 1 Blood Glucose* 141 135 211 Hemodialysis Net Fluid Removed 5000 (mL) - General Appearance General appearance: Present: obese, chronically ill, fatigue EENT: Present: ATNC, mucous membranes moist Neck: Present: no JVD, supple Additional Comments: good areation ant bilat Cardiology: Present: edema (LE bilat), normal S1, normal S2 Dialysis Vascular Access: Arteriovenous Fistula thrill: Yes bruit: Yes Gastrointestinal: Present: no tenderness, no guarding Integumentary: Present: warm and dry Neurologic: Present: no focal deficit Musculoskeletal: Present: no deformities Psychiatric: Present: mood/affect appropriate, cooperative - Lab 07/15/18 06:27 07/15/18 06:27 Most recent lab results Calcium 9.0 mg/dL (8.6-10.3) 07/15/18 06:27 Consult Discharge Plan - Plan Referrals: Tristen Quintana MD [Primary Care Provider] -
[2018-07-16] MEDS: Ipratropium/Albuterol Neb 3 ML IH PRN (03:49)
[2018-07-16 05:45] LABS: Eosinophils % 0.1 %; Red Cell Distribution Width 18.6 % (11.5-14.5)
[2018-07-16 05:47] LABS: Basophils % 0.2 %; Hematocrit 27.5 % (35.3-44.9); Immature Granulocytes % 0.5 % (0-4); Lymphocytes # 0.9 K/mcL (0.6-4.6); Lymphocytes % 6.5 %; Mean Corpuscular HGB Conc 29.1 g/dL (31.6-35.5); Mean Corpuscular Hemoglobin 24.5 pg (28.0-33.3); Mean Corpuscular Volume 84.4 fL (83.0-100.0); Mean Platelet Volume 11.7 fL (9.4-12.4); Monocytes % 6.7 %; Neutrophils # 12.2 K/mcL (1.6-8.9); Platelet Count 146 K/mcL (140-400); Red Blood Count 3.26 M/mcL (3.82-4.97)
[2018-07-16] MEDS: Metoclopramide 10 MG/10 ML UD.LIQ PO SCH ×3 (06:00→12:38)
[2018-07-16] MEDS: Sucralfate 1 GM TABLET PO SCH ×4 (06:00→22:12)
[2018-07-16 06:13] LABS: Calcium 9.2 mg/dL (8.6-10.3); Potassium 4.6 mEq/L (3.5-5.1)
[2018-07-16 06:28] LABS: Anisocytosis 1+ (Not Present); Hypochromasia Present (Not Present); Platelet Estimate Normal (Normal); Polychromasia 1+ (Not Present)
[2018-07-16] MEDS ORDERED: 0.9 % Sodium Chloride 1,000 ML ONE (07:56)
[2018-07-16] MEDS: Budesonide/Formoterol 160/4.5 1 PUFF INH IH SCH ×2 (07:59→22:11)
[2018-07-16] MEDS: Isosorbide MONOnitrate (24 HR) 30 MG TAB.ER.24H PO SCH (08:21)
[2018-07-16] MEDS: Lactobacillus 1 EACH CAP.SPRINK PO SCH (08:21)
[2018-07-16] MEDS: Renal Vitamin 1 CAP CAPSULE PO SCH (08:21)
[2018-07-16] MEDS: Insulin LISPRO 300 UNITS/3 ML VIAL SQ SCH ×4 (08:22→22:15)
[2018-07-16] MEDS: Calcium Acetate 667 MG CAPSULE PO SCH ×3 (08:22→12:38)
[2018-07-16] MEDS: Aspirin Enteric Coated 81 MG Tablet PO SCH (08:22)
[2018-07-16] MEDS: ARIPiprazole 10 MG TABLET PO SCH (08:22)
[2018-07-16] MEDS: Cholecalciferol (D-3) 1,000 UNIT TABLET PO SCH (08:22)
[2018-07-16] MEDS: Gabapentin 100 MG CAPSULE PO SCH ×3 (08:22→22:11)
[2018-07-16] MEDS ORDERED: 0.9 % Sodium Chloride 250 ML IVC PRN (09:37)
--- NOTE | 2018-07-16 11:55 | Internal Med Progress Note ---
Hospitalist Progress Note - Encounter Date of Encounter: 07/16/18 Time of Encounter: 11:54 - Subjective Interval History: Seen and evaluated during HD/UF She states she had SOB during HD on admission She now also has cough, unproductive, which kept her awake all night She is not febrile and has no leukocytosis CXR on admission showed pulm edema She is otherwise at her baseline, will rpt CXR a.m showed worsening infiltrates bilaterally, as well as worsening pulmonary edema, I personally looked at the CXR and I did not see any infiltrates She actually states she feels better However, she had a T-max of 00.2 this a.m, and her WBC has increased Will continue to monitor , no indication for antibiotics at this time - Exam Vitals: Temp Pulse Resp BP Pulse Ox 97.6 F 85 18 110/57 100 07/16/18 08:02 07/16/18 08:02 07/16/18 08:02 07/16/18 08:02 07/16/18 08:02 Exam: General: Alert and oriented. Skin:Normal color, no rash. Venous stasis dermatitis noted to bilateral upper and lower extremities. LUE with bloody blisters and surrounding bruising, per patient, this has been present since the last admission HEENT:Pupils equal, round and reactive. Cardiovascular:Heart sounds distant. Normal S1 & S2, no rubs, murmurs or gallops. No JVD. Rhythm irregular. Lungs:Breath sounds distant and decreased, no wheezes or crackles. Abdomen:Soft, non-tender, no rigidity. Extremities:No deformity, tenderness, clubbing. 2+ pitting edema to bilateral lower extremities. Neurological:Normal cognition and motor skills. Pulses:Carotid and radial pulses normal +2. - Assessment and Plan (1) SOB (shortness of breath) Current Visit: Yes Status: Acute Assessment and Plan: Continuous laboratory monitor. Duoneb treatments as needed. O2 nasal canula 3lpm. Patient endorsed improvement, however, imaging shows worsening Rpt CXR a.m again Continue HD/UF per renal (2) Anemia Current Visit: Yes Status: Chronic Assessment and Plan: Type and screen completed in ER. Occult stool negative in ER. Hb at baseline Continue home meds (3) ESRD (end stage renal disease) on dialysis Current Visit: Yes Status: Chronic Assessment and Plan: HD/UF per renal (4) Wounds, multiple Current Visit: Yes Status: Chronic Assessment and Plan: Most recent wound care in ECF completed yesterday. Wound care consulted and recommended continuation of wound care from prior admission Continue to monitor (5) Diabetes mellitus Current Visit: Yes Status: Chronic Assessment and Plan: ACHS accucheck. FS currently acceptable Continue levemor and lispro as sliding scale Diabetic diet. - Time Spent with Patient Total time spent is greater than 50% in coordination of care (as documented) at patient's floor/unit and/or counseling patient: Plan of Care Discussed with: patient Internal Medicine: Result - Labs CBC & Chem 7: 07/16/18 05:30 07/16/18 05:30 Labs: Short CBC 07/16/18 Range/Units 05:30 WBC 14.2 H D (4.3-11.1) K/mcL Hgb 8.0 L (11.5-15.4) g/dL Hct 27.5 L (35.3-44.9) % Plt Count 146 (140-400) K/mcL Neutrophils # 12.2 H (1.6-8.9) K/mcL BMP 07/16/18 05:30 Sodium 130 L Potassium 4.6 Chloride 99 Carbon Dioxide 24 BUN 35 H Creatinine 4.17 H Glucose 178 H Calcium 9.2 - Impressions Impressions Chest X-Ray 07/16/18 08:00 IMPRESSION: 1. Interval worsening of bibasilar opacities, bilateral effusions, and pulmonary edema. D/ / 07/16/2018 07:45:06 Tracy Davey MD / rena Interpreting Provider: Tracy Davey MD Consult Discharge Plan - Plan Referrals: Tristen Quintana MD [Primary Care Provider] - (2) Anemia Qualifiers: Anemia type: unspecified type Qualified Code(s): D64.9 - Anemia, unspecified (5) Diabetes mellitus Qualifiers: Diabetes mellitus type: type 2 Diabetes mellitus superintendent terminal insulin use: with superintendent terminal use Diabetes mellitus complication status: with skin complications Diabetes mellitus complication detail: with other skin complication Qualified Code(s): E11.628 - Type 2 diabetes mellitus with other skin complications; Z79.4 - buttermaker continuous churn (current) use of insulin
--- NOTE | 2018-07-16 12:12 | Nephrology Progress Note ---
Date of Encounter: 07/16/18 Time of Encounter: 12:00 - Assessment and Plan (1) ESRD (end stage renal disease) on dialysis Current Visit: Yes Status: Chronic Continue HD with UF as tolerated Lytes stable (2) SOB (shortness of breath) Current Visit: Yes Status: Acute Due to noncompliance with diet/fluid restriction. Improved (3) Acute CHF Current Visit: Yes Status: Acute 1.5 Liter fluid restriction. Strict I/O. Cardiac/renal diet. Qualifiers: Qualified Code(s): I50.9 - Heart failure, unspecified (4) Anemia Current Visit: Yes Status: Chronic Hgb noted at 8.0, stool guaiac negative. Possibly ESRD related, pt not receiving appropriate EPO/ iv iron regimen due to frequent hospital admissions Continue aranesp weekly Qualifiers: Qualified Code(s): D64.9 - Anemia, unspecified Subjective Interval history: Pt seen and examined on HD resting comfortably. No new complaints. Objective - Vital Signs Vital signs: Vital Signs Temp Pulse Resp BP Pulse Ox 07/16/18 08:02 97.6 F 85 18 110/57 100 07/16/18 03:51 18 98 07/16/18 03:50 99.4 F 93 17 99/49 95 07/15/18 23:45 100.2 F H 110 17 121/45 94 07/15/18 20:41 97.1 F L 112 17 139/75 95 07/15/18 19:48 20 95 07/15/18 18:27 24 91 07/15/18 15:13 98.1 F 89 18 121/61 94 07/15/18 12:11 97.4 F L 18 118/45 Intake and Output 07/15/18 07/16/18 07/16/18 23:59 07:59 15:59 Intake Total 480 / 480 Balance 480 / 480 Intake: Oral 480 / 480 Other: Meal Dinner Percent of Meal Consumed 100% Stool Size Moderate Stool Consistency soft formed Stool Color Brown # Bowel Movements 1 # Bowel Movement Diapers 1 Weight 125.8 kg Blood Glucose* 211 120 Patient Weight 07/16/18 23:59 Weight 125.8 kg - General Appearance General appearance: Present: chronically ill (NAD) EENT: Present: ATNC, mucous membranes moist Neck: Present: no JVD, supple Additional Comments: good areation ant bilat Cardiology: Present: edema (improving), normal S1, normal S2 Dialysis Vascular Access: Arteriovenous Fistula thrill: Yes bruit: Yes Gastrointestinal: Present: no tenderness, no guarding, obese Integumentary: Present: warm and dry, hyperpigmentation, chronic venous stasis Neurologic: Present: no focal deficit Musculoskeletal: Present: no deformities Psychiatric: Present: mood/affect appropriate - Lab 07/17/18 06:57 07/17/18 06:57 Most recent lab results Calcium 9.2 mg/dL (8.6-10.3) 07/16/18 05:30 Consult Discharge Plan - Plan Referrals: Tristen Quintana MD [Primary Care Provider] -
[2018-07-16] MEDS: Gentamicin Oint 15 GM TUBE TP SCH (12:14)
[2018-07-16] MEDS: *HR* OxyCODONE/APAP 5/325 TABLET PO PRN (12:38)
[2018-07-16] MEDS: amLODIPine 5 MG TABLET PO SCH (17:42)
[2018-07-16] MEDS: Insulin DETEMIR 100 UNIT/ML X5UNITS SQ SCH (22:09)
[2018-07-17] MEDS: Gentamicin Oint 15 GM TUBE TP SCH ×3 (01:00→21:24)
[2018-07-17 07:17] LABS: Immature Granulocytes % 0.4 % (0-4); Mean Corpuscular Hemoglobin 24.3 pg (28.0-33.3); Mean Platelet Volume 11.6 fL (9.4-12.4); Platelet Count 140 K/mcL (140-400)
[2018-07-17 07:18] LABS: Basophils % 0.5 %; Eosinophils # 0.2 K/mcL (0.0-0.6); Eosinophils % 2.4 %; Hematocrit 28.5 % (35.3-44.9); Hemoglobin 8.1 g/dL (11.5-15.4); Lymphocytes # 1.2 K/mcL (0.6-4.6); Lymphocytes % 15.8 %; Mean Corpuscular HGB Conc 28.4 g/dL (31.6-35.5); Mean Corpuscular Volume 85.6 fL (83.0-100.0); Monocytes # 0.7 K/mcL (0.0-1.3); Monocytes % 8.8 %; Neutrophils # 5.4 K/mcL (1.6-8.9); Red Blood Count 3.33 M/mcL (3.82-4.97); Red Cell Distribution Width 18.6 % (11.5-14.5); Segmented Neutrophils % 72.1 %
[2018-07-17 07:34] LABS: Platelet Estimate Normal (Normal)
[2018-07-17 07:35] LABS: Anisocytosis 1+ (Not Present); Hypochromasia Present (Not Present); Polychromasia 1+ (Not Present)
[2018-07-17 07:36] LABS: Calcium 9.2 mg/dL (8.6-10.3); Potassium 4.1 mEq/L (3.5-5.1)
[2018-07-17] MEDS: Budesonide/Formoterol 160/4.5 1 PUFF INH IH SCH ×2 (07:42→20:31)
[2018-07-17] MEDS: Cholecalciferol (D-3) 1,000 UNIT TABLET PO SCH (08:06)
[2018-07-17] MEDS: Isosorbide MONOnitrate (24 HR) 30 MG TAB.ER.24H PO SCH (08:06)
[2018-07-17] MEDS: Metoclopramide 10 MG/10 ML UD.LIQ PO SCH ×3 (08:06→18:23)
[2018-07-17] MEDS: amLODIPine 5 MG TABLET PO SCH (08:07)
[2018-07-17] MEDS: Gabapentin 100 MG CAPSULE PO SCH ×3 (08:07→21:19)
[2018-07-17] MEDS: Calcium Acetate 667 MG CAPSULE PO SCH ×3 (08:07→18:23)
[2018-07-17] MEDS: Aspirin Enteric Coated 81 MG Tablet PO SCH (08:07)
[2018-07-17] MEDS: *HR* OxyCODONE/APAP 5/325 TABLET PO PRN (08:07)
[2018-07-17] MEDS: Lactobacillus 1 EACH CAP.SPRINK PO SCH (08:07)
[2018-07-17] MEDS: ARIPiprazole 10 MG TABLET PO SCH (08:08)
[2018-07-17] MEDS: Sucralfate 1 GM TABLET PO SCH ×4 (08:08→21:19)
[2018-07-17] MEDS: Insulin LISPRO 300 UNITS/3 ML VIAL SQ SCH ×4 (08:08→21:20)
[2018-07-17] MEDS: Renal Vitamin 1 CAP CAPSULE PO SCH (08:08)
--- NOTE | 2018-07-17 09:49 | Internal Med Progress Note ---
Hospitalist Progress Note - Encounter Date of Encounter: 07/17/18 Time of Encounter: 09:49 - Subjective Interval History: Seen and evaluated at the bedside She denies any new complains She reports cough is better and her upper and lower extremity swelling looks slightly improved She still has SOB, extensive cardiac work up in the past with no significant findings Her O2 requirement is at baseline She had one episode of temp of 100.2 on 07/15 but has been afebrile otherwise, leukocytosis from 07/16 may have been a lab error as it is completely resolved today - Exam Vitals: Temp Pulse Resp BP Pulse Ox 97.4 F L 84 18 109/67 99 07/17/18 07:15 07/17/18 07:15 07/17/18 07:42 07/17/18 07:15 07/17/18 07:42 Exam: General: Alert and oriented. Skin:Normal color, no rash. Venous stasis dermatitis noted to bilateral upper and lower extremities. LUE with bloody blisters and surrounding bruising, improved and para operator compared to prior exam HEENT:Pupils equal, round and reactive. Cardiovascular:Heart sounds distant. Normal S1 & S2, no rubs, murmurs or gallops. No JVD. Rhythm regular Lungs:Distant breath sounds, but no wheezes or crackles Abdomen:Soft, non-tender, no rigidity. Extremities:No deformity, tenderness, clubbing. 2+ pitting edema to bilateral lower extremities, dressing clean and dry Neurological:Normal cognition and motor skills. Pulses:Carotid and radial pulses normal +2. - Assessment and Plan (1) SOB (shortness of breath) Current Visit: Yes Status: Acute Assessment and Plan: Due to pulm edema and fluid overload Continuous cardiac technician. Duoneb treatments as needed. O2 nasal canula 3lpm. Patient endorsed improvement, however, imaging shows worsening Rpt CXR a.m again Low suspicion for PNA Continue HD/UF per renal (2) Anemia Current Visit: Yes Status: Chronic Assessment and Plan: Type and screen completed in ER. Occult stool negative in ER. Hb at baseline Continue home meds (3) ESRD (end stage renal disease) on dialysis Current Visit: Yes Status: Chronic Assessment and Plan: HD/UF per renal (4) Wounds, multiple Current Visit: Yes Status: Chronic Assessment and Plan: Most recent wound care in ECF completed yesterday. Wound care consulted and recommended continuation of wound care from prior admission Continue to monitor (5) Diabetes mellitus Current Visit: Yes Status: Chronic Assessment and Plan: ACHS accucheck. FS currently acceptable Continue levemor and lispro as sliding scale Diabetic diet. - Time Spent with Patient Total time spent is greater than 50% in coordination of care (as documented) at patient's floor/unit and/or counseling patient: Plan of Care Discussed with: patient Internal Medicine: Result - Labs CBC & Chem 7: 07/17/18 06:57 07/17/18 06:57 Labs: Short CBC 07/17/18 Range/Units 06:57 WBC 7.5 (4.3-11.1) K/mcL Hgb 8.1 L (11.5-15.4) g/dL Hct 28.5 L (35.3-44.9) % Plt Count 140 (140-400) K/mcL Neutrophils # 5.4 (1.6-8.9) K/mcL BMP 07/17/18 06:57 Sodium 133 L Potassium 4.1 Chloride 96 L Carbon Dioxide 28 BUN 26 H Creatinine 3.33 H Glucose 68 L Calcium 9.2 Consult Discharge Plan - Plan Referrals: Tristen Quintana MD [Primary Care Provider] - (2) Anemia Qualifiers: Anemia type: unspecified type Qualified Code(s): D64.9 - Anemia, unspecified (5) Diabetes mellitus Qualifiers: Diabetes mellitus type: type 2 Diabetes mellitus [facility] insulin use: with [facility] use Diabetes mellitus complication status: with skin complications Diabetes mellitus complication detail: with other skin complication Qualified Code(s): E11.628 - Type 2 diabetes mellitus with other skin complications; Z79.4 - correction (current) use of insulin
--- NOTE | 2018-07-17 13:46 | Nephrology Progress Note ---
Date of Encounter: 07/17/18 Time of Encounter: 13:40 - Assessment and Plan (1) ESRD (end stage renal disease) on dialysis Current Visit: Yes Status: Chronic s/p HD yesterday with UF of 3kg, also s/p UF the day prior with 5kg removed Lytes stable Continue renal diet Continue fluid restriction (2) SOB (shortness of breath) Current Visit: Yes Status: Acute Due to noncompliance with diet/fluid restriction. Improved May need more UF sessions which has been the case on previous hospital stays but she is never able to maintain due to noncompliance (3) Acute CHF Current Visit: Yes Status: Acute 1.5 Liter fluid restriction. Strict I/O. Cardiac/renal diet. Qualifiers: Heart failure type: unspecified Qualified Code(s): I50.9 - Heart failure, unspecified (4) Anemia Current Visit: Yes Status: Chronic Hgb noted at 8.1, stool guaiac negative. Possibly ESRD related, pt not receiving appropriate EPO/ iv iron regimen due to frequent hospital admissions Continue aranesp weekly Qualifiers: Anemia type: unspecified type Qualified Code(s): D64.9 - Anemia, unspecified Subjective Interval history: Pt seen and examined resting comfortably but upon waking up calims "she doed not feel good" but does not elaborate and given any symptoms evens whne proded Objective - Vital Signs Vital signs: Vital Signs Temp Pulse Resp BP Pulse Ox 07/17/18 11:12 97.8 F 81 18 128/54 98 07/17/18 07:42 18 99 07/17/18 07:15 97.4 F L 84 18 109/67 100 07/17/18 04:25 97.8 F 78 18 107/52 97 07/17/18 00:18 97.8 F 78 16 109/69 93 07/16/18 22:11 18 99 07/16/18 19:45 98 F 87 16 130/64 100 07/16/18 15:58 97.8 F 86 18 93/52 99 Intake and Output 07/16/18 07/17/18 07/17/18 23:59 07:59 15:59 Intake Total 1120 / 1120 Output Total 0 / 0 Balance 1120 / 1120 Intake: IV Fluids 1000 / 1000 0.9 % Sodium Chloride 1,000 ML 1000 / 1000 @ As Directed PRIME .Q0M NATALIE Rx #:[id number] Oral 120 / 120 Output: Urine 0 / 0 Other: Stool Size Small Stool Consistency formed Stool Color Brown # Bowel Movements 1 Weight 126 kg Blood Glucose* 209 65 114 Patient Weight 07/17/18 23:59 Weight 126 kg - General Appearance General appearance: Present: chronically ill (NAD) EENT: Present: ATNC, mucous membranes moist Neck: Present: no JVD, supple Respiratory: Present: clear Cardiology: Present: edema (improving), normal S1, normal S2 Dialysis Vascular Access: Arteriovenous Fistula thrill: Yes bruit: Yes Gastrointestinal: Present: no tenderness, no guarding, obese Integumentary: Present: warm and dry Neurologic: Present: no focal deficit Musculoskeletal: Present: no deformities Psychiatric: Present: mood/affect appropriate, cooperative - Lab 07/17/18 06:57 07/17/18 06:57 Most recent lab results Calcium 9.2 mg/dL (8.6-10.3) 07/17/18 06:57 Consult Discharge Plan - Plan Referrals: Tristen Quintana MD [Primary Care Provider] -
[2018-07-17] MEDS: Ipratropium/Albuterol Neb 3 ML IH PRN (17:31)
[2018-07-17] MEDS: Insulin DETEMIR 100 UNIT/ML X5UNITS SQ SCH (21:24)
[2018-07-18] MEDS: *HR* OxyCODONE/APAP 5/325 TABLET PO PRN ×3 (00:10→16:54)
[2018-07-18 05:36] LABS: Basophils % 0.6 %
[2018-07-18 05:38] LABS: Eosinophils # 0.1 K/mcL (0.0-0.6); Eosinophils % 1.8 %; Hematocrit 28.5 % (35.3-44.9); Hemoglobin 8.1 g/dL (11.5-15.4); Immature Granulocytes % 0.5 % (0-4); Mean Corpuscular HGB Conc 28.4 g/dL (31.6-35.5); Mean Corpuscular Hemoglobin 24.2 pg (28.0-33.3); Mean Corpuscular Volume 85.1 fL (83.0-100.0); Mean Platelet Volume 11.8 fL (9.4-12.4); Monocytes # 0.6 K/mcL (0.0-1.3); Monocytes % 9.5 %; Platelet Count 148 K/mcL (140-400); Red Blood Count 3.35 M/mcL (3.82-4.97); Red Cell Distribution Width 18.5 % (11.5-14.5); Segmented Neutrophils % 72.6 %
[2018-07-18 05:41] LABS: Neutrophils # 4.9 K/mcL (1.6-8.9)
[2018-07-18 06:07] LABS: Calcium 9.1 mg/dL (8.6-10.3); Potassium 5.2 mEq/L (3.5-5.1)
[2018-07-18 06:23] LABS: Anisocytosis 1+ (Not Present); Hypochromasia Present (Not Present); Platelet Estimate Normal (Normal)
[2018-07-18] MEDS: Ipratropium/Albuterol Neb 3 ML IH PRN ×2 (07:35→19:34)
[2018-07-18] MEDS: Budesonide/Formoterol 160/4.5 1 PUFF INH IH SCH ×2 (07:36→19:34)
[2018-07-18] MEDS: Insulin LISPRO 300 UNITS/3 ML VIAL SQ SCH ×4 (08:04→23:36)
[2018-07-18] MEDS: Metoclopramide 10 MG/10 ML UD.LIQ PO SCH ×3 (08:18→16:55)
[2018-07-18] MEDS: amLODIPine 5 MG TABLET PO SCH (08:18)
[2018-07-18] MEDS: Sucralfate 1 GM TABLET PO SCH ×4 (08:19→23:35)
[2018-07-18] MEDS: Calcium Acetate 667 MG CAPSULE PO SCH ×3 (08:19→16:55)
[2018-07-18] MEDS: Isosorbide MONOnitrate (24 HR) 30 MG TAB.ER.24H PO SCH (08:19)
[2018-07-18] MEDS: Lactobacillus 1 EACH CAP.SPRINK PO SCH (08:19)
[2018-07-18] MEDS: Cholecalciferol (D-3) 1,000 UNIT TABLET PO SCH (08:19)
[2018-07-18] MEDS: Gabapentin 100 MG CAPSULE PO SCH ×3 (08:19→23:35)
[2018-07-18] MEDS: ARIPiprazole 10 MG TABLET PO SCH (08:19)
[2018-07-18] MEDS: Renal Vitamin 1 CAP CAPSULE PO SCH (08:19)
[2018-07-18] MEDS: Aspirin Enteric Coated 81 MG Tablet PO SCH (08:20)
--- NOTE | 2018-07-18 09:30 | Internal Med Progress Note ---
Hospitalist Progress Note - Encounter Date of Encounter: 07/18/18 Time of Encounter: 09:29 - Subjective Interval History: Seen and evaluated at the bedside She denies any new complains She reports cough is better and her upper and lower extremity swelling looks slightly improved She also reports to me that compared to her resp satus on arrival, she feels much more improved Rpt CXR from this mrn showig stable infiltrates and edema Patient is afebrile, dry cough is chronic, she has no evidence of PNA, she also has multiple MDROs in the past, I will defer any antibiotics use for now - Exam Vitals: Temp Pulse Resp BP Pulse Ox 97.5 F L 82 17 120/68 97 07/18/18 06:44 07/18/18 06:44 07/18/18 07:37 07/18/18 06:44 07/18/18 07:37 Exam: General: Alert and oriented. Skin:Normal color, no rash. Venous stasis dermatitis noted to bilateral upper and lower extremities. LUE with bloody blisters and surrounding bruising, improved and drier operator head compared to prior exam HEENT:Pupils equal, round and reactive. Cardiovascular:Heart sounds distant. Normal S1 & S2, no rubs, murmurs or gallops. No JVD. Rhythm regular Lungs:Distant breath sounds, but no wheezes or crackles Abdomen:Soft, non-tender, no rigidity. Extremities:No deformity, tenderness, clubbing. 2+ pitting edema to bilateral lower extremities, dressing clean and dry Neurological:Normal cognition and motor skills. Pulses:Carotid and radial pulses normal +2. - Assessment and Plan (1) SOB (shortness of breath) Current Visit: Yes Status: Acute Assessment and Plan: Due to pulm edema and fluid overload Continuous traffic monitor specialist. Duoneb treatments as needed. O2 nasal canula 3lpm. Patient endorsed improvement, however, imaging done today 07/18 shows stable bilateral intersititial edema as well as stable pulmonary consolidation Review of multiple prior images done Patient is on her home O2 dose and has a dry cough, she is afebrile and I am not convinced she has a PNA, blood cultures on admission are negative till date She also has multiple MDROS, will continue serial CXRs and continue UF/HD per renal (2) Anemia Current Visit: Yes Status: Chronic Assessment and Plan: Type and screen completed in ER. Occult stool negative in ER. Hb at baseline Continue home meds (3) ESRD (end stage renal disease) on dialysis Current Visit: Yes Status: Chronic Assessment and Plan: HD/UF per renal (4) Wounds, multiple Current Visit: Yes Status: Chronic Assessment and Plan: Most recent wound care in ECF completed yesterday. Wound care consulted and recommended continuation of wound care from prior admission NO evidence of infection on exam Continue to monitor (5) Diabetes mellitus Current Visit: Yes Status: Chronic Assessment and Plan: ACHS accucheck. FS currently acceptable Continue levemor and lispro as sliding scale Diabetic diet. - Time Spent with Patient Total time spent is greater than 50% in coordination of care (as documented) at patient's floor/unit and/or counseling patient: Plan of Care Discussed with: patient Internal Medicine: Result - Labs CBC & Chem 7: 07/18/18 05:07 07/18/18 05:07 Labs: Short CBC 07/18/18 Range/Units 05:07 WBC 6.7 (4.3-11.1) K/mcL Hgb 8.1 L (11.5-15.4) g/dL Hct 28.5 L (35.3-44.9) % Plt Count 148 (140-400) K/mcL Neutrophils # 4.9 (1.6-8.9) K/mcL BMP 07/18/18 05:07 Sodium 130 L Potassium 5.2 H D Chloride 95 L Carbon Dioxide 27 BUN 36 H Creatinine 4.10 H Glucose 82 Calcium 9.1 - Impressions Impressions Chest X-Ray 07/18/18 06:00 IMPRESSION: 1. Stable bilateral diffuse interstitial edema. 2. Stable bilateral pulmonary consolidation. D/ / 07/18/2018 07:51:29 Enmanuel Fermin MD / rena Interpreting Provider: Enmanuel Fermin MD Consult Discharge Plan - Plan Referrals: Tristen Quintana MD [Primary Care Provider] - (2) Anemia Qualifiers: Anemia type: unspecified type Qualified Code(s): D64.9 - Anemia, unspecified (5) Diabetes mellitus Qualifiers: Diabetes mellitus type: type 2 Diabetes mellitus [facility] insulin use: with [facility] use Diabetes mellitus complication status: with skin complications Diabetes mellitus complication detail: with other skin complication Qualified Code(s): E11.628 - Type 2 diabetes mellitus with other skin complications; Z79.4 - longterm (current) use of insulin
[2018-07-18] MEDS: Gentamicin Oint 15 GM TUBE TP SCH ×2 (18:17→23:36)
--- NOTE | 2018-07-18 19:40 | Nephrology Progress Note ---
Date of Encounter: 07/18/18 Time of Encounter: 10:20 - Assessment and Plan (1) ESRD (end stage renal disease) on dialysis Current Visit: Yes Status: Chronic ESRD on HD TTS with next HD tentatively planned for Wednesday. She had HD on Wednesday and UF on Wednesday, and though I had considered adding her on for Wednesday , since she has had so many recent treatments, I have held off. I counseled her for >50% o the 20 min encounter to focus on lifestyle modifications including renal diet. fluid restriction. She has a hx of recurrent hyponatremia, and was previously on Metolazone, which I have stopped several times on prior hospitalization. I do not recommend resuming Metolazone d/t her recurrent, rapid hyponatremia as seen on prior hospitalizations. (2) Anemia Current Visit: Yes Status: Chronic Goal Hgb is 10-11, and Aranesp at relatively low weekly/inpatient dosing has already been activated. Will monitor. Qualifiers: Anemia type: due to chronic kidney disease Chronic kidney disease stage: on chronic dialysis Qualified Code(s): N18.6 - End stage renal disease; D63.1 - Anemia in chronic kidney disease; Z99.2 - Dependence on renal dialysis (3) Acute CHF Current Visit: Yes Status: Acute As per primary. Her BNP was only 501, which is not terribly elevated, especially for a dialysis patient. 1.5 Liter fluid restriction. Strict I/O. Cardiac/renal diet. Qualifiers: Heart failure type: unspecified Qualified Code(s): I50.9 - Heart failure, unspecified (4) Hyperkalemia Current Visit: No Status: Chronic Acute on chronic. Mildly elevated at 5.2; low K+ diet recommended. Next HD planned for tomorrow for clearance. (5) Hyponatremia Current Visit: No Status: Chronic See above. (6) COPD (chronic obstructive pulmonary disease) Current Visit: No Status: Chronic This may be contributed to her acute on chronic dyspnea as well. As per primary. Qualifiers: COPD type: unspecified COPD Qualified Code(s): J44.9 - Chronic obstructive pulmonary disease, unspecified Subjective Principal diagnosis: ESRD Interval history: Pt was s/e earlier today (delayed note entry). She reported having a recurrent cough and affirmed that she has attended her last dialysis treatment prior to admission. She did not affirm CP or N/V Objective - Vital Signs Vital signs: Vital Signs Temp Pulse Resp BP Pulse Ox 07/18/18 16:04 98.3 F 93 18 121/62 97 07/18/18 10:58 98 F 89 18 120/65 96 07/18/18 07:37 17 97 07/18/18 06:44 97.5 F L 82 18 120/68 98 07/18/18 05:41 98.1 F 98 17 121/67 99 07/18/18 00:04 98.2 F 109 17 115/52 96 07/17/18 21:23 98.3 F 93 17 113/56 96 07/17/18 20:31 17 94 Intake and Output 07/18/18 07/18/18 07/18/18 07:59 15:59 23:59 Intake Total 1240 / 1240 Balance 1240 / 1240 Intake: Oral 1240 / 1240 Other: Meal Breakfast Percent of Meal Consumed 90% Weight 126 kg Blood Glucose* 70 146 171 Patient Weight 07/18/18 23:59 Weight 126 kg - General Appearance General appearance: Present: obese, chronically ill, fatigue, frail EENT: Present: ATNC, PERRL, mucous membranes moist Neck: Present: supple Respiratory: Present: wheezing, course breath sounds, rhonchi Cardiology: Present: edema (1+ pretibial pitting edema bilaterally), normal S1, normal S2 Dialysis Vascular Access: Arteriovenous Graft thrill: Yes bruit: Yes Gastrointestinal: Present: normoactive bowel sounds, no tenderness, no guarding , obese Integumentary: Present: ecchymotic, chronic venous stasis Neurologic: Present: no focal deficit, no asterixis, alert and oriented x3 Musculoskeletal: Present: no clubbing Psychiatric: Present: mood/affect appropriate, cooperative - Lab 07/18/18 05:07 07/18/18 05:07 Most recent lab results Calcium 9.1 mg/dL (8.6-10.3) 07/18/18 05:07 Consult Discharge Plan - Plan Referrals: Tristen Quintana MD [Primary Care Provider] -
[2018-07-18] MEDS: Insulin DETEMIR 100 UNIT/ML X5UNITS SQ SCH (23:36)
[2018-07-19 05:09] LABS: Basophils % 0.6 %; Eosinophils % 1.6 %
[2018-07-19 05:11] LABS: Eosinophils # 0.1 K/mcL (0.0-0.6); Hematocrit 31.3 % (35.3-44.9); Hemoglobin 8.9 g/dL (11.5-15.4); Immature Granulocytes % 0.6 % (0-4); Lymphocytes % 14.7 %; Mean Corpuscular HGB Conc 28.4 g/dL (31.6-35.5); Mean Corpuscular Hemoglobin 24.3 pg (28.0-33.3); Mean Corpuscular Volume 85.3 fL (83.0-100.0); Mean Platelet Volume 11.4 fL (9.4-12.4); Monocytes # 0.6 K/mcL (0.0-1.3); Neutrophils # 5.2 K/mcL (1.6-8.9); Platelet Count 158 K/mcL (140-400); Red Blood Count 3.67 M/mcL (3.82-4.97); Segmented Neutrophils % 73.5 %
[2018-07-19 05:26] LABS: Calcium 8.9 mg/dL (8.6-10.3); Potassium 5.6 mEq/L (3.5-5.1)
[2018-07-19 05:37] LABS: Hypochromasia Present (Not Present); Platelet Estimate Normal (Normal)
[2018-07-19] MEDS ORDERED: 0.9 % Sodium Chloride 250 ML IVC PRN (06:44)
[2018-07-19] MEDS: Budesonide/Formoterol 160/4.5 1 PUFF INH IH SCH ×2 (07:48→20:43)
[2018-07-19] MEDS: Ipratropium/Albuterol Neb 3 ML IH PRN ×2 (07:48→20:43)
[2018-07-19] MEDS: Calcium Acetate 667 MG CAPSULE PO SCH ×3 (08:09→15:48)
[2018-07-19] MEDS: ARIPiprazole 10 MG TABLET PO SCH (08:09)
[2018-07-19] MEDS: Renal Vitamin 1 CAP CAPSULE PO SCH (08:09)
[2018-07-19] MEDS: Lactobacillus 1 EACH CAP.SPRINK PO SCH (08:10)
[2018-07-19] MEDS: Metoclopramide 10 MG/10 ML UD.LIQ PO SCH ×3 (08:10→15:48)
[2018-07-19] MEDS: Sucralfate 1 GM TABLET PO SCH ×4 (08:10→22:31)
[2018-07-19] MEDS: Cholecalciferol (D-3) 1,000 UNIT TABLET PO SCH (08:10)
[2018-07-19] MEDS: Aspirin Enteric Coated 81 MG Tablet PO SCH (08:10)
[2018-07-19] MEDS: Gabapentin 100 MG CAPSULE PO SCH ×3 (08:10→22:31)
[2018-07-19] MEDS: Insulin LISPRO 300 UNITS/3 ML VIAL SQ SCH ×4 (08:10→22:31)
--- NOTE | 2018-07-19 09:25 | Nephrology Progress Note ---
Date of Encounter: 07/19/18 Time of Encounter: 09:23 - Assessment and Plan (1) COPD (chronic obstructive pulmonary disease) Current Visit: No Status: Chronic This may be contributed to her acute on chronic dyspnea as well. As per primary. Qualifiers: COPD type: unspecified COPD Qualified Code(s): J44.9 - Chronic obstructive pulmonary disease, unspecified (2) Hyperkalemia Current Visit: No Status: Chronic Acute on chronic. K is 5.6 today, will correct with HD. (3) Hyponatremia Current Visit: No Status: Chronic NA is 128, will trend. (4) Acute CHF Current Visit: Yes Status: Acute As per primary. Her BNP was only 501, which is not terribly elevated, especially for a dialysis patient. 1.5 Liter fluid restriction. Strict I/O. Cardiac/renal diet. Qualifiers: Heart failure type: unspecified Qualified Code(s): I50.9 - Heart failure, unspecified (5) Anemia Current Visit: Yes Status: Chronic Goal Hgb is 10-11, and Aranesp at relatively low weekly/inpatient dosing has already been activated. Will monitor. Hgb is 8.9 today. Qualifiers: Anemia type: due to chronic kidney disease Chronic kidney disease stage: on chronic dialysis Qualified Code(s): N18.6 - End stage renal disease; D63.1 - Anemia in chronic kidney disease; Z99.2 - Dependence on renal dialysis (6) ESRD (end stage renal disease) on dialysis Current Visit: Yes Status: Chronic ESRD on HD TTS HD today. Avoid nephrotoxins and renal dose. She has a hx of recurrent hyponatremia, and was previously on Metolazone, which I have stopped several times on prior hospitalization. I do not recommend resuming Metolazone d/t her recurrent, rapid hyponatremia as seen on prior hospitalizations. Subjective Principal diagnosis: ESRD Interval history: PT seen and examined during HD, tolerating well. Objective - Vital Signs Vital signs: Vital Signs Temp Pulse Resp BP Pulse Ox 07/19/18 07:19 97.6 F 86 18 134/81 99 07/19/18 05:40 98.4 F 100 16 134/52 100 07/19/18 00:24 97.7 F 85 17 153/79 95 07/18/18 21:31 97.9 F 85 17 136/74 100 07/18/18 19:34 20 97 07/18/18 16:04 98.3 F 93 18 121/62 97 07/18/18 10:58 98 F 89 18 120/65 96 Intake and Output 07/18/18 07/19/18 07/19/18 23:59 07:59 15:59 Intake Total 125 / 125 240 / 240 Balance 125 / 125 240 / 240 Intake: Oral 125 / 125 240 / 240 Other: Meal Breakfast Percent of Meal Consumed 95% Stool Size Small Stool Consistency soft formed Stool Color Brown # Voids 1 # Bowel Movements 1 Weight 124.5 kg Blood Glucose* 207 155 Patient Weight 07/19/18 23:59 Weight 124.5 kg - General Appearance General appearance: Present: well-developed, well-nourished EENT: Present: ATNC, hearing intact, vision intact Neck: Present: supple Respiratory: Present: clear Cardiology: Present: edema (+1 pitting edema noted to bilat lower extremities.) , normal S1, normal S2 Dialysis Vascular Access: Arteriovenous Fistula thrill: Yes bruit: Yes Gastrointestinal: Present: normoactive bowel sounds, no tenderness, no guarding Integumentary: Present: no rash, warm and dry Neurologic: Present: alert and oriented x3 Psychiatric: Present: mood/affect appropriate, cooperative - Lab 07/19/18 04:55 07/19/18 04:55 Most recent lab results Calcium 8.9 mg/dL (8.6-10.3) 07/19/18 04:55 Consult Discharge Plan - Plan Referrals: Tristen Quintana MD [Primary Care Provider] -
[2018-07-19] MEDS: *HR* OxyCODONE/APAP 5/325 TABLET PO PRN (10:17)
[2018-07-19] MEDS: Gentamicin Oint 15 GM TUBE TP SCH ×2 (13:25→22:32)
[2018-07-19] MEDS: Isosorbide MONOnitrate (24 HR) 30 MG TAB.ER.24H PO SCH (13:44)
[2018-07-19] MEDS: amLODIPine 5 MG TABLET PO SCH (13:44)
--- NOTE | 2018-07-19 16:05 | Internal Med Progress Note ---
Hospitalist Progress Note - Encounter Date of Encounter: 07/19/18 Time of Encounter: 16:05 - Subjective Interval History: Seen and evaluated at the bedside She denies any new complains She reports cough is better and her upper and lower extremity swelling looks slightly improved She also reports to me that compared to her resp satus on arrival, she feels much more improved Patient is afebrile, dry cough is chronic, she has no evidence of PNA, she also has multiple MDROs in the past, I will defer any antibiotics use for now She had sputum with streaks of blood i1, I ordered a culture which shows GNR , I will consult Infectious disease for recommendations - Exam Vitals: Temp Pulse Resp BP Pulse Ox 97.7 F 86 18 125/62 95 07/19/18 13:32 07/19/18 07:19 07/19/18 15:54 07/19/18 13:32 07/19/18 15:54 Exam: General: Alert and oriented. Skin:Normal color, no rash. Venous stasis dermatitis noted to bilateral upper and lower extremities. LUE with bloody blisters and surrounding bruising, improved and atmospheric drier tender compared to prior exam HEENT:Pupils equal, round and reactive. Cardiovascular:Heart sounds distant. Normal S1 & S2, no rubs, murmurs or gallops. No JVD. Rhythm regular Lungs:Distant breath sounds, but no wheezes or crackles Abdomen:Soft, non-tender, no rigidity. Extremities:No deformity, tenderness, clubbing. 2+ pitting edema to bilateral lower extremities, dressing clean and dry Neurological:Normal cognition and motor skills. Pulses:Carotid and radial pulses normal +2. - Assessment and Plan (1) SOB (shortness of breath) Current Visit: Yes Status: Acute Assessment and Plan: Due to pulm edema and fluid overload Continuous cardiac exercise specialist. Duoneb treatments as needed. O2 nasal canula 3lpm. Patient endorsed improvement, however, imaging done today 07/18 shows stable bilateral interstitial edema as well as stable pulmonary consolidation Review of multiple prior images done Patient is on her home O2 dose and has a dry cough, she is afebrile and I am not convinced she has a PNA, blood cultures on admission are negative till date She also has multiple MDROS, will continue serial CXRs and continue UF/HD per renal (2) Anemia Current Visit: Yes Status: Chronic Assessment and Plan: Type and screen completed in ER. Occult stool negative in ER. Hb at baseline Continue home meds (3) ESRD (end stage renal disease) on dialysis Current Visit: Yes Status: Chronic Assessment and Plan: HD/UF per renal (4) Wounds, multiple Current Visit: Yes Status: Chronic Assessment and Plan: Most recent wound care in ECF completed yesterday. Wound care consulted and recommended continuation of wound care from prior admission NO evidence of infection on exam Continue to monitor (5) Diabetes mellitus Current Visit: Yes Status: Chronic Assessment and Plan: ACHS accucheck. FS currently acceptable Continue levemor and lispro as sliding scale Diabetic diet. - Time Spent with Patient Total time spent is greater than 50% in coordination of care (as documented) at patient's floor/unit and/or counseling patient: Plan of Care Discussed with: patient Internal Medicine: Result - Labs CBC & Chem 7: 07/19/18 04:55 07/19/18 04:55 Labs: Short CBC 07/19/18 Range/Units 04:55 WBC 7.0 (4.3-11.1) K/mcL Hgb 8.9 L (11.5-15.4) g/dL Hct 31.3 L (35.3-44.9) % Plt Count 158 (140-400) K/mcL Neutrophils # 5.2 (1.6-8.9) K/mcL BMP 07/19/18 04:55 Sodium 128 L Potassium 5.6 H Chloride 93 L Carbon Dioxide 26 BUN 46 H Creatinine 4.73 H Glucose 178 H Calcium 8.9 Consult Discharge Plan - Plan Referrals: Tristen Quintana MD [Primary Care Provider] - (2) Anemia Qualifiers: Anemia type: due to chronic kidney disease Chronic kidney disease stage: on chronic dialysis Qualified Code(s): N18.6 - End stage renal disease; D63.1 - Anemia in chronic kidney disease; Z99.2 - Dependence on renal dialysis (5) Diabetes mellitus Qualifiers: Diabetes mellitus type: type 2 Diabetes mellitus alf insulin use: with terminal operator use Diabetes mellitus complication status: with skin complications Diabetes mellitus complication detail: with other skin complication Qualified Code(s): E11.628 - Type 2 diabetes mellitus with other skin complications; Z79.4 - [facility] (current) use of insulin
[2018-07-19] MEDS: Insulin DETEMIR 100 UNIT/ML X5UNITS SQ SCH (22:32)
[2018-07-20 06:38] LABS: Basophils % 0.7 %; Eosinophils # 0.1 K/mcL (0.0-0.6); Eosinophils % 1.5 %; Hematocrit 28.3 % (35.3-44.9); Hemoglobin 8.2 g/dL (11.5-15.4); Immature Granulocytes % 0.8 % (0-4); Lymphocytes # 0.8 K/mcL (0.6-4.6); Lymphocytes % 13.4 %; Mean Corpuscular Hemoglobin 24.2 pg (28.0-33.3); Mean Corpuscular Volume 83.5 fL (83.0-100.0); Mean Platelet Volume 11.7 fL (9.4-12.4); Monocytes # 0.6 K/mcL (0.0-1.3); Monocytes % 9.4 %; Neutrophils # 4.4 K/mcL (1.6-8.9); Platelet Count 147 K/mcL (140-400); Red Blood Count 3.39 M/mcL (3.82-4.97); Red Cell Distribution Width 18.4 % (11.5-14.5); Segmented Neutrophils % 74.2 %
[2018-07-20 06:49] LABS: Calcium 8.7 mg/dL (8.6-10.3); Potassium 4.4 mEq/L (3.5-5.1)
[2018-07-20] MEDS: Ipratropium/Albuterol Neb 3 ML IH PRN (07:31)
[2018-07-20] MEDS: Budesonide/Formoterol 160/4.5 1 PUFF INH IH SCH ×2 (07:31→22:25)
--- NOTE | 2018-07-20 07:55 | Internal Med Progress Note ---
Hospitalist Progress Note - Encounter Date of Encounter: 07/20/18 Time of Encounter: 10:00 - Subjective Interval History: Seen and evaluated at the bedside She denies any new complains She had sputum with streaks of blood i10/8, I ordered a culture which shows GNR X2, I have spoken to Dr. Hopkins Infectious disease for recommendations, patient with multipe MDRO organisms, will start on etarpenem based on prior cultures CXR showed persistnet infiltrates, despite multiple rounds of HD and UF She is afebrile and has no sepsis - Exam Vitals: Temp Pulse Resp BP Pulse Ox 97.9 F 89 18 123/67 95 07/19/18 23:45 07/19/18 23:45 07/20/18 07:49 07/19/18 23:45 07/20/18 07:49 Exam: General: Alert and oriented. Skin:Normal color, no rash. Venous stasis dermatitis noted to bilateral upper and lower extremities. LUE with bloody blisters and surrounding bruising, improved and primer expeditor and drier compared to prior exam HEENT:Pupils equal, round and reactive. Cardiovascular:Heart sounds distant. Normal S1 & S2, no rubs, murmurs or gallops. No JVD. Rhythm regular Lungs:Distant breath sounds, but no wheezes or crackles, anterior auscultation only done today Abdomen:Soft, non-tender, no rigidity. Extremities:No deformity, tenderness, clubbing. 2+ pitting edema to bilateral lower extremities, dressing clean and dry Neurological:Normal cognition and motor skills. Pulses:Carotid and radial pulses normal +2. - Assessment and Plan (1) SOB (shortness of breath) Current Visit: Yes Status: Acute Assessment and Plan: Due to pulm edema and fluid overload Associated PNA with GNR X2 on sputum See PNA for trt of PNA Continuous monitor tech. Duoneb treatments as needed. O2 nasal canula 3lpm. HD/UF per renal (2) Anemia Current Visit: Yes Status: Chronic Assessment and Plan: Type and screen completed in ER. Occult stool negative in ER. Hb at baseline Continue home meds (3) ESRD (end stage renal disease) on dialysis Current Visit: Yes Status: Chronic Assessment and Plan: HD/UF per renal (4) Wounds, multiple Current Visit: Yes Status: Chronic Assessment and Plan: Most recent wound care in ECF completed yesterday. Wound care consulted and recommended continuation of wound care from prior admission NO evidence of infection on exam Continue to monitor (5) Diabetes mellitus Current Visit: Yes Status: Chronic Assessment and Plan: ACHS accucheck. FS currently acceptable Continue levemor and lispro as sliding scale Diabetic diet. (6) Pneumonia Current Visit: Yes Status: Acute Assessment and Plan: sputum culture with GNR X2 Patient with sob on arrival, one episode of low grade fever and leukocytosis ( which resolved without treatment) CXR since arrival showed infiltrates -Pulm edema vs consildation , as well as pleural effusions Sputum culture obtained 07/19 which is growing GNR Based on prior cultures will start on etarpenem ID consulted, due to multiple MDROs in the past - Time Spent with Patient Total time spent is greater than 50% in coordination of care (as documented) at patient's floor/unit and/or counseling patient: Plan of Care Discussed with: patient Internal Medicine: Result - Labs CBC & Chem 7: 07/20/18 05:21 07/20/18 05:21 Labs: Short CBC 07/20/18 Range/Units 05:21 WBC 6.0 (4.3-11.1) K/mcL Hgb 8.2 L (11.5-15.4) g/dL Hct 28.3 L (35.3-44.9) % Plt Count 147 (140-400) K/mcL Neutrophils # 4.4 (1.6-8.9) K/mcL BMP 07/20/18 05:21 Sodium 131 L Potassium 4.4 Chloride 93 L Carbon Dioxide 30 H BUN 31 H Creatinine 3.43 H Glucose 192 H Calcium 8.7 Consult Discharge Plan - Plan Referrals: Tristen Quintana MD [Primary Care Provider] - (2) Anemia Qualifiers: Anemia type: due to chronic kidney disease Chronic kidney disease stage: on chronic dialysis Qualified Code(s): N18.6 - End stage renal disease; D63.1 - Anemia in chronic kidney disease; Z99.2 - Dependence on renal dialysis (5) Diabetes mellitus Qualifiers: Diabetes mellitus type: type 2 Diabetes mellitus 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
[2018-07-20] MEDS: Insulin LISPRO 300 UNITS/3 ML VIAL SQ SCH ×3 (08:21→16:58)
[2018-07-20] MEDS: amLODIPine 5 MG TABLET PO SCH (08:26)
[2018-07-20] MEDS: ARIPiprazole 10 MG TABLET PO SCH (08:26)
[2018-07-20] MEDS: Gabapentin 100 MG CAPSULE PO SCH ×3 (08:26→21:24)
[2018-07-20] MEDS: Lactobacillus 1 EACH CAP.SPRINK PO SCH (08:26)
[2018-07-20] MEDS: Isosorbide MONOnitrate (24 HR) 30 MG TAB.ER.24H PO SCH (08:26)
[2018-07-20] MEDS: Calcium Acetate 667 MG CAPSULE PO SCH ×3 (08:26→16:11)
[2018-07-20] MEDS: Sucralfate 1 GM TABLET PO SCH ×4 (08:26→21:24)
[2018-07-20] MEDS: Aspirin Enteric Coated 81 MG Tablet PO SCH (08:26)
[2018-07-20] MEDS: Renal Vitamin 1 CAP CAPSULE PO SCH (08:26)
[2018-07-20] MEDS: Cholecalciferol (D-3) 1,000 UNIT TABLET PO SCH (08:26)
[2018-07-20] MEDS: Metoclopramide 10 MG/10 ML UD.LIQ PO SCH ×3 (08:27→16:12)
[2018-07-20] MEDS: Gentamicin Oint 15 GM TUBE TP SCH ×2 (08:31→21:24)
--- NOTE | 2018-07-20 10:06 | Nephrology Progress Note ---
Date of Encounter: 07/20/18 Time of Encounter: 10:05 - Assessment and Plan (1) COPD (chronic obstructive pulmonary disease) Current Visit: No Status: Chronic This may be contributed to her acute on chronic dyspnea as well. As per primary. Qualifiers: COPD type: unspecified COPD Qualified Code(s): J44.9 - Chronic obstructive pulmonary disease, unspecified (2) Hyperkalemia Current Visit: No Status: Chronic Acute on chronic. K is 4.4 today, corrected. (3) Hyponatremia Current Visit: No Status: Chronic NA is 131, improved. (4) Acute CHF Current Visit: Yes Status: Acute 1.5 Liter fluid restriction. Strict I/O. Cardiac/renal diet. Qualifiers: Heart failure type: unspecified Qualified Code(s): I50.9 - Heart failure, unspecified (5) Anemia Current Visit: Yes Status: Chronic Goal Hgb is 10-11, and Aranesp at relatively low weekly/inpatient dosing has already been activated. Will monitor. Hgb is 8.2 today. Qualifiers: Anemia type: due to chronic kidney disease Chronic kidney disease stage: on chronic dialysis Qualified Code(s): N18.6 - End stage renal disease; D63.1 - Anemia in chronic kidney disease; Z99.2 - Dependence on renal dialysis (6) ESRD (end stage renal disease) on dialysis Current Visit: Yes Status: Chronic ESRD on HD TTS Plan for HD tomorrow. Avoid nephrotoxins and renal dose. She has a hx of recurrent hyponatremia, and was previously on Metolazone, which I have stopped several times on prior hospitalization. I do not recommend resuming Metolazone d/t her recurrent, rapid hyponatremia as seen on prior hospitalizations. Subjective Principal diagnosis: ESRD Interval history: PT seen and examined today. Resting with eyes closed. Objective - Vital Signs Vital signs: Vital Signs Temp Pulse Resp BP Pulse Ox 07/20/18 07:49 18 95 07/20/18 07:41 98.7 F 93 18 125/67 95 07/19/18 23:45 97.9 F 89 17 123/67 96 07/19/18 20:43 17 97 07/19/18 19:43 98.5 F 92 17 118/70 97 07/19/18 16:10 97.5 F L 94 18 136/78 99 07/19/18 15:54 18 95 10/09/18 13:32 97.7 F 18 125/62 07/19/18 13:00 123/59 07/19/18 12:45 115/61 07/19/18 12:30 125/63 07/19/18 12:15 119/72 07/19/18 12:00 123/59 07/19/18 11:45 146/66 07/19/18 11:30 135/60 07/19/18 11:15 123/79 07/19/18 11:00 129/66 07/19/18 10:45 120/62 07/19/18 10:30 128/58 07/19/18 10:15 123/65 Intake and Output 07/19/18 07/20/18 07/20/18 23:59 07:59 15:59 Intake Total 240 / 240 Balance 240 / 240 Intake: Oral 240 / 240 Other: Meal Dinner Percent of Meal Consumed 100% Blood Glucose* 257 182 - General Appearance General appearance: Present: chronically ill, fatigue, frail EENT: Present: ATNC, hearing intact, vision intact Neck: Present: supple Respiratory: Present: clear Cardiology: Present: regular rate, regular rhythm, normal S1, normal S2 Dialysis Vascular Access: Arteriovenous Fistula thrill: Yes bruit: Yes Gastrointestinal: Present: normoactive bowel sounds, no tenderness, no guarding Integumentary: Present: no rash, warm and dry Neurologic: Present: alert and oriented x3 Psychiatric: Present: mood/affect appropriate, cooperative - Lab 07/20/18 05:21 07/20/18 05:21 Most recent lab results Calcium 8.7 mg/dL (8.6-10.3) 07/20/18 05:21 Consult Discharge Plan - Plan Referrals: Tristen Quintana MD [Primary Care Provider] -
--- NOTE | 2018-07-20 11:48 | Infectious Disease Consult ---
Date of Encounter: 07/20/18 Time of Encounter: 11:37 Assessment and Plan (1) HCAP (healthcare-associated pneumonia) Status: Suspected Assessment and plan: patient symptomatic with cough, sputum production and shortness of breath ( patient with COPD as well) CXR 07/18: Stable bilateral diffuse interstitial edema. Stable bilateral pulmonary consolidation. Sputum culture growing 2 different gram-negative rods History of multidrug resistant organism Klebsiella and ESBL Escherichia coli Agree with starting empiric ertapenem Await cultures to finalize Based on the cultures also make further antibiotic recommendations and duration Monitor labs and for drug toxicity Ertapenem dosing at 500 mg daily as the patient is end-stage renal disease on hemodialysis (2) Decubital ulcer Status: Acute Qualifiers: Pressure injury location: unspecified location Pressure injury stage: unspecified pressure injury stage Qualified Code(s): L89.90 - Pressure ulcer of unspecified site, unspecified stage (3) Diabetes Status: Chronic Qualifiers: Diabetes mellitus type: type 2 Diabetes mellitus care home 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 Patient with prior MDR O's. Chest x-ray with History of present illness: Ms. Riley is a 63 year old female Patient is 63-year-old woman well-known to our service who presented to [place] on 07/14/2018 complaining of shortness of breath We are seeing the patient today on 07/20/2018 for "gram-negative rods in sputum , patient with prior MDR O's, chest x-ray with infiltrates, asymptomatic patient please review". Patient is 63-year-old woman with past medical history mentioned below including incisions disease and hemodialysis, diabetes mellitus type 2, congestive heart failure, COPD on 3 L home O2 nasal cannula, atrial fibrillation , history of SC and coronary artery disease, peripheral artery disease and hypertension, dementia, anxiety, depression and schizophrenia who was last seen by us in June of this year for healthcare associated pneumonia with unknown causative organism with negative legionella and strep pneumo antigens. Previous cultures in February of this year were positive for Escherichia coli ESBL and klebsiella pneumoniae multidrug resistant organism based on that we decided to treat the patient for 7 days total. At that time patient also had cellulitis of the right lower extremity with unknown causative organism On admission, patient was afebrile, tachycardic and tachypneic. Presenting labs revealed WBC of 8.3 with 80% neutrophils no bands. BUN of 23 creatinine of 2.84 and a BNP of 501. Initial chest x-ray revealed stable chest M sinning pulmonary edema and small left pleural effusion. On 07/15/2018 patient spiked a low-grade fever and her WBC dropped to 14.2 with 86% neutrophils no bands. Blood cultures were obtained 2 and were negative. A repeat chest x-ray was done which was read as stable bilateral diffuse interstitial edema. Stable bilateral pulmonary consolidation. A sputum culture was obtained on 07/18/2018 which grew 2 different gram-negative rods. Patient was started on ertapenem this morning and we were asked to evaluate the patient and make further recommendations. Currently patient sitting up in bed. Eating lunch. Tells me she continues to have significant cough and sputum production and she is short of breath. CC: Papito Stoll MD Past Med Surg Social Fam HX - Past Medical History Medical history: atrial fibrillation, CHF, COPD, coronary artery disease, diabetes, GI bleed, hyperlipidemia, hypertension, myocardial infarction, peripheral artery disease, renal disease, other Additional medical history: AV fistula for dialysis ++ Psychiatric history: anxiety, depression, schizophrenia, previous psychiatric hospitalization - Past Surgical History Surgical History: angioplasty/stent, appendectomy, cholecystectomy, coronary bypass (CABG), hysterectomy, knee replacement, other, IVC filter Additional surgical history: left arm fistulogram with covered stent placement left basilic vein 2016. Hysterectomy 1996. kidney stones 1996. appendix 1970. tonsils unsure date. double Bypass 1998. stents x5 unsure date. right wrist 2017 - Social History Smoking Status: Current every day smoker Smokeless Tobacco Status: No Alcohol use: none Drug use: none - Family History Father Family Member Ethnicity: Non- Living Status: Hx Family Cardiac Disorders: Yes Hx Family Respiratory Disorders: Yes Hx Family Cancer: Yes (Polycythemia) Hx Family Endocrine Disorder: Yes (DM) Mother Family Member Ethnicity: Non- Living Status: Still Living Hx Family Cardiac Disorders: Yes Hx Family Respiratory Disorders: Yes (asthma, COPD) Brother Adopted: No Family Member Ethnicity: Non- Living Status: Still Living Hx Family Cardiac Disorders: No Hx Family Respiratory Disorders: No Hx Family Cancer: No Hx Family GI Disorders: No Hx Family Endocrine Disorder: No Hx Family Neuromuscular Disorders: No Hx Family Neurologic Disorders: No Hx Family HEENT Disorders: No Hx Family Autoimmune Disorders: No Sister Adopted: No Family Member Ethnicity: Non- Living Status: Still Living Hx Family Cardiac Disorders: Yes Hx Family Respiratory Disorders: No Hx Family Cancer: No Hx Family GI Disorders: No Hx Family Endocrine Disorder: Yes Hx Family Neuromuscular Disorders: No Hx Family Neurologic Disorders: No Hx Family HEENT Disorders: No Hx Family Autoimmune Disorders: No Infectious Disease-CN:Meds Colestipol HCl [Colestid] 1 gm PO BID 06/12/15 [History] Calcium Acetate [Phos-LO] 1,334 mg PO TIDWM 09/06/16 [History] ARIPiprazole [Abilify] 10 mg PO DAILY 09/13/17 [History] Aspirin Enteric Coated [Aspirin EC] 81 mg PO DAILY 09/13/17 [History] Budesonide/Formoterol 160/4.5 [Symbicort 160/4.5] 2 puff IH BIDR 09/13/17 [ History] Cholecalciferol (Vitamin D3) [Vitamin D3] 50,000 unit PO TH 09/13/17 [History] Sevelamer [Renvela] 800 mg PO DAILY 09/13/17 [History] Albuterol Neb [AccuNeb] 0.63 mg IH Q6H PRN 10/18/17 [History] amLODIPine [Norvasc] 5 mg PO DAILY 12/30/17 [History] Clopidogrel [Plavix] 75 mg PO DAILY 02/03/18 [History] Rosuvastatin Calcium [Crestor] 20 mg PO DAILY 02/27/18 [History] Amitriptyline [Elavil] 50 mg PO HS tablet 03/24/18 [Rx] Metoclopramide [Reglan] 5 mg PO TIDAC 3 Days #9 ud.[id number] 04/08/18 [Rx] Sucralfate [Carafate] 1 gm PO QIDAC 3 Days #12 tablet 04/08/18 [Rx] Renal Vitamin [Renal Caps Softgel] 1 mg PO DAILY capsule 04/17/18 [Rx] Carvedilol 12.5 mg PO BID 04/28/18 [History] Darbepoetin [Aranesp] 60 mcg SQ TH 04/28/18 [History] Insulin DETEMIR [Levemir] 28 unit SQ HS 04/28/18 [History] Insulin LISPRO [HumaLOG] 2 - 10 units SQ TIDWM 04/28/18 [History] Lactobacillus Acidophilus/Fos [Acidophilus Probiotic Tablet] 1 tab PO DAILY [History] Omeprazole [PriLOSEC] 20 mg PO DAILY 04/28/18 [History] Ondansetron HCl [Zofran] 4 mg PO Q12H PRN 04/28/18 [History] Gentamicin Oint [Garamycin] 1 appl TP BID #1 tube 06/17/18 [Rx] Gabapentin [Neurontin] 100 mg PO TID 2 Days #6 capsule 06/18/18 [Rx] Isosorbide MONOnitrate (24 HR) [Imdur] 30 mg PO DAILY #30 tab.er.24h 07/04/18 [ Rx] Doxycycline 100 mg PO BID #14 capsule 07/08/18 [Rx] OxyCODONE/APAP 5/325 [Percocet 5/325 MG] 1 each PO Q8HR PRN 2 Days #6 tablet [Rx] 3 Allergy/AdvReac Type Severity Reaction Status Date / Time piperacillin [From Zosyn] Allergy Anaphylaxis Verified 07/05/18 10:03 tazobactam [From Zosyn] Allergy Anaphylaxis Verified 07/05/18 10:03 Review of systems: 10 point review of systems done, negative other for what mentioned in the history of present illness Exam - Constitutional Vitals: Temp Pulse Resp BP Pulse Ox 98.7 F 93 18 125/67 95 07/20/18 07:41 07/20/18 07:41 07/20/18 07:49 07/20/18 07:41 07/20/18 07:49 General appearance: cooperative, disheveled, no acute distress - Head Head exam: Present: atraumatic, normocephalic - Eye Eye exam: Present: EOMI, PERRL - ENT ENT exam: Present: mucous membranes dry Additional comments: No oral lesions - Neck Neck exam: Present: full ROM. Absent: meningismus - Respiratory Additional comments: Air sounds audible both lung tran. Some decreased breath sounds in the bases with some fine rhonchi. Poor inspiratory effort. - Cardiovascular Cardiovascular exam: Present: RRR, +S1, +S2 - GI/Abdominal GI/Abdominal exam: Present: normal bowel sounds, soft. Absent: tenderness - Extremities Exam Additional comments: Bilateral lower extremity venous stasis - Neurological Exam Neurological exam: Present: alert, oriented X3 - Psychiatric Psychiatric exam: Present: normal affect, normal mood - Skin Skin exam: Present: normal color. Absent: rash Infectious Disease CN: Results - Labs CBC & Chem 7: 07/20/18 05:21 07/20/18 05:21 Cultures: Cultures 07/18/18 15:10 Sputum Culture - Preliminary Sputum Gram Negative Camacho Gram Negative Camacho#2 07/16/18 09:09 Blood Culture - Preliminary Peripheral Venipuncture Culture is incubating and being continuously monitored for growth. Final report to follow. 07/16/18 09:09 Blood Culture - Preliminary Peripheral Venipuncture Culture is incubating and being continuously monitored for growth. Final report to follow. Consult Discharge Plan - Plan Referrals: Tristen Quintana MD [Primary Care Provider] -
[2018-07-20] MEDS: Insulin DETEMIR 100 UNIT/ML X5UNITS SQ SCH (21:24)
[2018-07-21] MEDS: Insulin LISPRO 300 UNITS/3 ML VIAL SQ SCH ×5 (02:34→21:05)
[2018-07-21 06:08] LABS: Mean Corpuscular Hemoglobin 24.1 pg (28.0-33.3)
[2018-07-21 06:11] LABS: Basophils % 0.7 %; Eosinophils # 0.1 K/mcL (0.0-0.6); Eosinophils % 2.1 %; Hematocrit 28.7 % (35.3-44.9); Hemoglobin 8.3 g/dL (11.5-15.4); Immature Granulocytes % 0.7 % (0-4); Lymphocytes # 0.9 K/mcL (0.6-4.6); Lymphocytes % 15.1 %; Mean Corpuscular HGB Conc 28.9 g/dL (31.6-35.5); Mean Corpuscular Volume 83.4 fL (83.0-100.0); Mean Platelet Volume 11.4 fL (9.4-12.4); Monocytes # 0.6 K/mcL (0.0-1.3); Monocytes % 10.3 %; Neutrophils # 4.1 K/mcL (1.6-8.9); Platelet Count 150 K/mcL (140-400); Red Blood Count 3.44 M/mcL (3.82-4.97); Red Cell Distribution Width 18.3 % (11.5-14.5); Segmented Neutrophils % 71.1 %
[2018-07-21 06:30] LABS: Calcium 8.9 mg/dL (8.6-10.3); Potassium 4.6 mEq/L (3.5-5.1)
[2018-07-21 06:44] LABS: Anisocytosis 1+ (Not Present); Platelet Estimate Normal (Normal)
[2018-07-21] MEDS: 0.9 % Sodium Chloride 1,000 ML PRIME SCH (08:20)
--- NOTE | 2018-07-21 09:26 | Nephrology Progress Note ---
Date of Encounter: 07/21/18 Time of Encounter: 09:25 - Assessment and Plan (1) COPD (chronic obstructive pulmonary disease) Current Visit: No Status: Chronic This may be contributed to her acute on chronic dyspnea as well. As per primary. Qualifiers: COPD type: unspecified COPD Qualified Code(s): J44.9 - Chronic obstructive pulmonary disease, unspecified (2) Hyperkalemia Current Visit: No Status: Chronic Acute on chronic. K is 4.6 today, corrected. (3) Hyponatremia Current Visit: No Status: Chronic NA is 133, improved. (4) Acute CHF Current Visit: Yes Status: Acute 1.5 Liter fluid restriction. Strict I/O. Cardiac/renal diet. Qualifiers: Heart failure type: unspecified Qualified Code(s): I50.9 - Heart failure, unspecified (5) Anemia Current Visit: Yes Status: Chronic Goal Hgb is 10-11, and Aranesp at relatively low weekly/inpatient dosing has already been activated. Will monitor. Hgb is 8.3 today. Qualifiers: Anemia type: due to chronic kidney disease Chronic kidney disease stage: on chronic dialysis Qualified Code(s): N18.6 - End stage renal disease; D63.1 - Anemia in chronic kidney disease; Z99.2 - Dependence on renal dialysis (6) ESRD (end stage renal disease) on dialysis Current Visit: Yes Status: Chronic ESRD on HD TTS HD today. Avoid nephrotoxins and renal dose. She has a hx of recurrent hyponatremia, and was previously on Metolazone, which I have stopped several times on prior hospitalization. I do not recommend resuming Metolazone d/t her recurrent, rapid hyponatremia as seen on prior hospitalizations. Subjective Principal diagnosis: ESRD Interval history: PT seen and examined during HD. Denies nausea/vomiting. Objective - Vital Signs Vital signs: Vital Signs Temp Pulse Resp BP Pulse Ox 07/21/18 07:49 97.7 F 95 17 125/76 100 07/21/18 04:16 97.7 F 86 17 110/59 99 07/20/18 22:54 18 130/79 99 07/20/18 22:53 97.8 F 101 16 116/67 99 07/20/18 16:52 97.8 F 106 18 130/79 99 07/20/18 12:03 97.7 F 88 18 113/74 95 Intake and Output 07/20/18 07/21/18 07/21/18 23:59 07:59 15:59 Intake Total 100 / 100 Balance 100 / 100 Intake: IV Fluids 100 / 100 INVanz 500 MG In 0.9 % Sodium 100 / 100 Chloride 100 ML @ 100 mls/hr IVPB DAILY@1800 NATALIE Rx#: [id number] Other: Weight 125.3 kg Blood Glucose* 236 118 Patient Weight 07/21/18 23:59 Weight 125.3 kg - General Appearance General appearance: Present: well-developed, well-nourished EENT: Present: ATNC, hearing intact, vision intact Neck: Present: supple Respiratory: Present: clear Cardiology: Present: edema (+2 pitting edema noted to bilat lower extremities.) , normal S1, normal S2 Dialysis Vascular Access: Arteriovenous Fistula thrill: Yes bruit: Yes Gastrointestinal: Present: normoactive bowel sounds, no tenderness, no guarding Integumentary: Present: no rash, warm and dry Neurologic: Present: alert and oriented x3 Psychiatric: Present: mood/affect appropriate, cooperative - Lab 07/21/18 05:46 07/21/18 05:46 Most recent lab results Calcium 8.9 mg/dL (8.6-10.3) 07/21/18 05:46 Consult Discharge Plan - Plan Referrals: Tristen Quintana MD [Primary Care Provider] -
--- NOTE | 2018-07-21 10:01 | Internal Med Progress Note ---
Hospitalist Progress Note - Encounter Date of Encounter: 07/21/18 Time of Encounter: 10:01 - Subjective Interval History: Seen and evaluated during HD She denies any new complains She is being managed for PNA due to MDRO E.coli and another GNR She also had fluid overload with pulm edema on admission She is currently stable resp reeves Infectious disease is following due to patient's hx of MDROs - Exam Vitals: Temp Pulse Resp BP Pulse Ox 97.7 F 95 17 125/76 100 07/21/18 07:49 07/21/18 07:49 07/21/18 07:49 07/21/18 07:49 07/21/18 07:49 Exam: General: Alert and oriented. Skin:Normal color, no rash. Venous stasis dermatitis noted to bilateral upper and lower extremities. LUE with AVF, mild bleeding during HD HEENT:Pupils equal, round and reactive. Cardiovascular:Heart sounds distant. Normal S1 & S2, no rubs, murmurs or gallops. No JVD. Rhythm regular Lungs:Distant breath sounds, but no wheezes or crackles Abdomen:Soft, non-tender, no rigidity. Extremities:No deformity, tenderness, clubbing. 2+ pitting edema to bilateral lower extremities, dressing clean and dry Neurological:Normal cognition and motor skills. Pulses:Carotid and radial pulses normal +2. - Assessment and Plan (1) SOB (shortness of breath) Current Visit: Yes Status: Acute Assessment and Plan: Due to pulm edema and fluid overload Associated PNA with E.coli and another GNR on sputum See PNA for trt of PNA Continuous threat monitoring analyst. Duoneb treatments as needed. O2 nasal canula 3lpm. HD/UF per renal (2) Anemia Current Visit: Yes Status: Chronic Assessment and Plan: Chronic, stable, due to ESRD Type and screen completed in ER. Occult stool negative in ER. Hb at baseline Continue home meds (3) ESRD (end stage renal disease) on dialysis Current Visit: Yes Status: Chronic Assessment and Plan: HD/UF per renal (4) Wounds, multiple Current Visit: Yes Status: Chronic Assessment and Plan: Most recent wound care in ECF completed yesterday. Wound care consulted and recommended continuation of wound care from prior admission NO evidence of infection on exam Continue to monitor (5) Diabetes mellitus Current Visit: Yes Status: Chronic Assessment and Plan: ACHS accucheck. FS currently acceptable Continue levemor and lispro as sliding scale Diabetic diet. (6) Pneumonia Current Visit: Yes Status: Acute Assessment and Plan: Patient with sob on arrival, one episode of low grade fever and leukocytosis ( which resolved without treatment) CXR since arrival showed infiltrates -Pulm edema vs consildation , as well as pleural effusions Sputum culture obtained 07/19 with MDRO E.coli, sensitive to etarpenem, continue same There is another GNR on sputum culture, final sensitivity pending ID consulted, appreciate input Patient's chronic hypoxia is at baseline - Time Spent with Patient Total time spent is greater than 50% in coordination of care (as documented) at patient's floor/unit and/or counseling patient: Plan of Care Discussed with: patient Internal Medicine: Result - Labs CBC & Chem 7: 07/21/18 05:46 07/21/18 05:46 Labs: Short CBC 07/21/18 Range/Units 05:46 WBC 5.8 (4.3-11.1) K/mcL Hgb 8.3 L (11.5-15.4) g/dL Hct 28.7 L (35.3-44.9) % Plt Count 150 (140-400) K/mcL Neutrophils # 4.1 (1.6-8.9) K/mcL BMP 07/21/18 05:46 Sodium 133 L Potassium 4.6 Chloride 95 L Carbon Dioxide 29 BUN 38 H Creatinine 3.98 H Glucose 124 H Calcium 8.9 Consult Discharge Plan - Plan Referrals: Tristen Quintana MD [Primary Care Provider] - (2) Anemia Qualifiers: Qualified Code(s): N18.6 - End stage renal disease; D63.1 - Anemia in chronic kidney disease; Z99.2 - Dependence on renal dialysis (5) Diabetes mellitus Qualifiers: Qualified Code(s): E11.628 - Type 2 diabetes mellitus with other skin complications; Z79.4 - operations coordinator (current) use of insulin (6) Pneumonia Qualifiers: Qualified Code(s): J18.9 - Pneumonia, unspecified organism
[2018-07-21] MEDS ORDERED: 0.9 % Sodium Chloride 1,000 ML ONE (10:26)
[2018-07-21] MEDS: Budesonide/Formoterol 160/4.5 1 PUFF INH IH SCH ×2 (10:45→20:39)
--- NOTE | 2018-07-21 12:02 | Infectious Disease Progress No ---
Date of Encounter: 07/21/18 Time of Encounter: 12:00 - Assessment and Plan (1) Pneumonia Status: Acute Patient symptomatically with cough, sputum production, and shortness of breath. Location: Bilateral. Causative organism: Escherichia coli ESBL sensitive to ertapenem, gentamicin, tobramycin, Bactrim, and Zosyn and second gram-negative camacho that is likely Proteus. The patient has a history of multidrug resistant Klebsiella and ESBL Escherichia coli in the sputum. Repeat CXR in the AM. Continue ertapenem IV 500 mg daily. Dose adjusted based on the patient's hemodialysis status. Give after hemodialysis on dialysis days. Duration of treatment depends on the clinical picture, but likely a total of 14 days. Consult VAT for EPIV placement. Qualifiers: Pneumonia type: due to unspecified organism Laterality: right Lung location: lower lobe of lung Qualified Code(s): J18.1 - Lobar pneumonia, unspecified organism (2) SOB (shortness of breath) Status: Acute Likely secondary to pneumonia and COPD. Management per the primary team. (3) CAD (coronary artery disease) Status: Chronic Qualifiers: Coronary Disease-Associated Artery/Lesion type: [place] artery [place] vs. transplanted heart: [place] heart Associated angina: with unstable angina Qualified Code(s): I25.110 - Atherosclerotic heart disease of [place] coronary artery with unstable angina pectoris (4) CKD (chronic kidney disease), stage IV Status: Chronic Nephrology consult to assist with hemodialysis management. Dose adjust antibiotics based on hemodialysis status. (5) Diabetes Status: Acute Recommend aggressive glucose monitoring and control to promote wound healing and prevent reinfection. Management per the primary team. Qualifiers: Diabetes mellitus type: type 2 Diabetes mellitus chcf insulin use: with watermelon inspector use Diabetes mellitus complication status: with unspecified complications Qualified Code(s): E11.8 - Type 2 diabetes mellitus with unspecified complications; Z79.4 - retirement (current) use of insulin (6) HTN (hypertension) Status: Chronic Qualifiers: Hypertension type: essential hypertension Qualified Code(s): I10 - Essential (primary) hypertension - Subjective Interval history: Patient seen and examined in the HD unit. No acute events noted overnight. Patient states overall she feels okay. She denies any fevers or chills or rigors. Reports shortness of breath and a nonproductive cough. Denies any nausea or vomiting or diarrhea. She is eating a candy bar during my exam. She denies any abdominal pain. She states she had some burning with urination prior to admission, but denies any at this time. She denies any extremity pain , but does report some pain in her coccyx region. She denies any oral thrush or new skin lesions. Infect Dis PN-Objective Data - Labs CBC & Chem 7: 07/22/18 03:33 07/22/18 03:33 Labs: Laboratory Results - last 24 hr 07/20/18 07/20/18 07/20/18 11:48 16:49 23:07 WBC RBC Hgb Hct MCV MCH MCHC RDW Plt Count MPV Immature Gran % Seg Neutrophils % Lymphocytes % Monocytes % Eosinophils % Basophils % Neutrophils # Lymphocytes # Monocytes # Eosinophils # Basophils # Platelet Estimate Anisocytosis Sodium Potassium Chloride Carbon Dioxide BUN Creatinine Est GFR ( Amer) Est GFR (Non-Af Amer) BUN/Creatinine Ratio Glucose POC Glucose 213 H 213 H 236 H Calculated Osmolality Calcium 07/21/18 07/21/18 05:46 05:46 WBC 5.8 RBC 3.44 L Hgb 8.3 L Hct 28.7 L MCV 83.4 MCH 24.1 L MCHC 28.9 L RDW 18.3 H Plt Count 150 MPV 11.4 Immature Gran % 0.7 Seg Neutrophils % 71.1 Lymphocytes % 15.1 Monocytes % 10.3 Eosinophils % 2.1 Basophils % 0.7 Neutrophils # 4.1 Lymphocytes # 0.9 Monocytes # 0.6 Eosinophils # 0.1 Basophils # 0.0 Platelet Estimate Normal Anisocytosis 1+ A Sodium 133 L Potassium 4.6 Chloride 95 L Carbon Dioxide 29 BUN 38 H Creatinine 3.98 H Est GFR ( Amer) 14 L Est GFR (Non-Af Amer) 11 L BUN/Creatinine Ratio 10 Glucose 124 H POC Glucose Calculated Osmolality 286 Calcium 8.9 Cultures: Cultures 07/16/18 09:09 Blood Culture - Final Peripheral Venipuncture No growth. Final report. 07/16/18 09:09 Blood Culture - Final Peripheral Venipuncture No growth. Final report. 07/18/18 15:10 Sputum Culture - Preliminary Sputum Escherichia coli Gram Negative Camacho#2 Exam - Constitutional Vitals: Temp Pulse Resp BP Pulse Ox 97.2 F L 95 18 123/69 100 07/21/18 08:30 07/21/18 07:49 07/21/18 08:30 07/21/18 10:30 07/21/18 07:49 General appearance: cooperative, no acute distress, obese - Head Head exam: Present: atraumatic, normal inspection, normocephalic - Eye Eye exam: Present: EOMI, normal appearance, PERRL Pupils: Present: normal accommodation - ENT ENT exam: Present: mucous membranes moist - Neck Neck exam: Present: normal inspection - Respiratory Respiratory exam: Present: rhonchi (Throughout all lobes). Absent: rales, respiratory distress, wheezes - Cardiovascular Cardiovascular exam: Present: RRR, +S1, +S2 - GI/Abdominal GI/Abdominal exam: Present: distended (Obese), normal bowel sounds, soft. Absent: tenderness - Extremities Exam Extremities exam: Present: pedal edema (1+ bilateral lower extremities). Absent : joint swelling, normal inspection (Venous stasis dermatitis noted to bilateral lower extremities. Left lower extremity dressing is clean, dry, and intact.), tenderness - Neurological Exam Neurological exam: Present: alert, oriented X3, no focal deficits - Psychiatric Psychiatric exam: Present: normal affect, normal mood - Skin Skin exam: Present: dry, intact, normal color, warm - Additional findings Additional findings: AV fistula noted to the left upper extremity is currently accessed for hemodialysis. Consult Discharge Plan - Plan Referrals: Tristen Quintana MD [Primary Care Provider] - (Please follow up with ECF PCP) Prescriptions: OxyCODONE/APAP 5/325 [Percocet 5/325 MG] 1 each PO Q8HR PRN 2 Days #6 tablet PRN Reason: Pain Benzonatate [Tessalon] 200 mg PO TID PRN 10 Days #30 capsule PRN Reason: Cough Gabapentin [Neurontin] 100 mg PO TID 4 Days #12 capsule - Attending Attestation I examined this patient and my medical decision-making was reviewed with the Resident Physician. I agree with the documented findings, disposition and treatment plan as described except to the extent set forth below.
[2018-07-21] MEDS: Sucralfate 1 GM TABLET PO SCH ×4 (14:43→21:04)
[2018-07-21] MEDS: Metoclopramide 10 MG/10 ML UD.LIQ PO SCH ×3 (14:45→15:15)
[2018-07-21] MEDS: Gabapentin 100 MG CAPSULE PO SCH ×3 (15:14→21:04)
[2018-07-21] MEDS: Calcium Acetate 667 MG CAPSULE PO SCH ×2 (15:14→15:15)
[2018-07-21] MEDS: Gentamicin Oint 15 GM TUBE TP SCH ×2 (15:16→21:05)
[2018-07-21] MEDS: Cholecalciferol (D-3) 1,000 UNIT TABLET PO SCH (15:22)
[2018-07-21] MEDS: ARIPiprazole 10 MG TABLET PO SCH (15:22)
[2018-07-21] MEDS: Isosorbide MONOnitrate (24 HR) 30 MG TAB.ER.24H PO SCH (15:22)
[2018-07-21] MEDS: Renal Vitamin 1 CAP CAPSULE PO SCH (15:22)
[2018-07-21] MEDS: Lactobacillus 1 EACH CAP.SPRINK PO SCH (15:22)
[2018-07-21] MEDS: amLODIPine 5 MG TABLET PO SCH (15:22)
[2018-07-21] MEDS: Aspirin Enteric Coated 81 MG Tablet PO SCH ×2 (15:22→15:23)
[2018-07-21] MEDS ORDERED: Lidocaine -MPF 1% 2 ML VIAL ID PRN (15:25)
[2018-07-21 17:26] LABS: Basophils % 0.4 %; Eosinophils # 0.1 K/mcL (0.0-0.6); Eosinophils % 1.1 %; Hematocrit 26.6 % (35.3-44.9); Immature Granulocytes % 1.5 % (0-4); Lymphocytes # 1.1 K/mcL (0.6-4.6); Lymphocytes % 14.8 %; Mean Corpuscular HGB Conc 30.1 g/dL (31.6-35.5); Mean Corpuscular Hemoglobin 24.4 pg (28.0-33.3); Mean Corpuscular Volume 81.1 fL (83.0-100.0); Monocytes # 0.6 K/mcL (0.0-1.3); Monocytes % 8.4 %; Neutrophils # 5.4 K/mcL (1.6-8.9); Platelet Count 134 K/mcL (140-400); Red Blood Count 3.28 M/mcL (3.82-4.97); Segmented Neutrophils % 73.8 %
[2018-07-21] MEDS ORDERED: Benzonatate 100 MG CAPSULE PO PRN (17:34)
[2018-07-21] MEDS: Ipratropium/Albuterol Neb 3 ML IH PRN (20:39)
[2018-07-21] MEDS: Insulin DETEMIR 100 UNIT/ML X5UNITS SQ SCH (21:06)
[2018-07-22 04:03] LABS: Basophils % 0.6 %; Mean Corpuscular HGB Conc 28.5 g/dL (31.6-35.5)
[2018-07-22 04:04] LABS: Eosinophils # 0.1 K/mcL (0.0-0.6); Eosinophils % 1.5 %; Hematocrit 27.7 % (35.3-44.9); Hemoglobin 7.9 g/dL (11.5-15.4); Immature Granulocytes % 0.8 % (0-4); Lymphocytes # 1.1 K/mcL (0.6-4.6); Mean Corpuscular Hemoglobin 23.9 pg (28.0-33.3); Mean Corpuscular Volume 83.7 fL (83.0-100.0); Mean Platelet Volume 11.3 fL (9.4-12.4); Monocytes # 0.7 K/mcL (0.0-1.3); Monocytes % 10.1 %; Neutrophils # 4.7 K/mcL (1.6-8.9); Platelet Count 136 K/mcL (140-400); Red Blood Count 3.31 M/mcL (3.82-4.97); Red Cell Distribution Width 18.2 % (11.5-14.5)
[2018-07-22 04:10] LABS: Calcium 8.7 mg/dL (8.6-10.3); Potassium 4.2 mEq/L (3.5-5.1)
[2018-07-22 06:00] LABS: Hypochromasia Present (Not Present); Platelet Estimate Normal (Normal)
[2018-07-22 07:23] VITALS: BP 127/67
[2018-07-22] MEDS: Insulin LISPRO 300 UNITS/3 ML VIAL SQ SCH (07:31)
--- NOTE | 2018-07-22 08:28 | Discharge Summary ---
Orders not resulted at time of discharge: Pending orders 07/18/18 15:10 Sputum Culture [Culture,Sputum with Gram Stain] [RM] Routine 07/22/18 08:00 XR chest 2V [XR] Routine Date of Encounter: 07/22/18 Time of Encounter: 08:30 - Discharge Diagnosis (1) Pneumonia Priority: Primary Status: Acute Assessment and Plan: 63 year old female with past medical history significant for ESRD on dialysis, COPD, atrial fibrillation, CHF, CAD with stents and CABG, hypertension, hyperlipidemia, and diabetes who presents from dialysis for complaints of shortness of breath that started during dialysis this morning. Shortness of breath is accompanied by non productive cough which she has intermittently. Denies any chest pain, abdominal pain, headache, nausea, vomiting, bowel or bladder changes. Has presented similarly from dialysis in the past. Denies any exacerbating factors, but states oxygen and breathing treatments received in ER helped improve her symptoms. Wears 3lpm nasal canula continuously at ECF. Receives dialysis Tuesdays, , and Wednesdays. Does still produce small amount of urine about every other day. She had CXR on arrival showing infiltrates and she was assessed with pulm edema with fluid overload and consolidations. She was treated with antibiotics and regular hemodialysis. Sputum culture obtained 07/19 with MDRO E.coli, sensitive to etarpenem. She improved and ID recommended a 14 day total course of ertapenem. She had a line placed and she was discharged to an ECF to complete her course of antibiotics. Qualifiers: Pneumonia type: due to unspecified organism Laterality: unspecified laterality Lung location: unspecified part of lung Qualified Code(s): J18.9 - Pneumonia, unspecified organism (2) SOB (shortness of breath) Priority: Primary Status: Acute (3) Anemia Priority: Primary Status: Chronic Qualifiers: Anemia type: due to chronic kidney disease Chronic kidney disease stage: on chronic dialysis Qualified Code(s): N18.6 - End stage renal disease; D63.1 - Anemia in chronic kidney disease; Z99.2 - Dependence on renal dialysis (4) ESRD (end stage renal disease) on dialysis Priority: Primary Status: Chronic (5) Wounds, multiple Priority: Primary Status: Chronic (6) Diabetes mellitus Priority: Primary Status: Chronic Qualifiers: Diabetes mellitus type: type 2 Diabetes mellitus ferry terminal agent insulin use: with fdc use Diabetes mellitus complication status: with skin complications Diabetes mellitus complication detail: with other skin complication Qualified Code(s): E11.628 - Type 2 diabetes mellitus with other skin complications; Z79.4 - penitentiary (current) use of insulin Hospital course: Ms. Riley is a 63 year old female - Time Spent with Patient Total time spent providing and/or coordinating discharge services: - Discharge Medications Prescriptions: OxyCODONE/APAP 5/325 [Percocet 5/325 MG] 1 each PO Q8HR PRN 2 Days #6 tablet PRN Reason: Pain Benzonatate [Tessalon] 200 mg PO TID PRN 10 Days #30 capsule PRN Reason: Cough Gabapentin [Neurontin] 100 mg PO TID 4 Days #12 capsule Home Medications: Colestipol HCl [Colestid] 1 gm PO BID 06/12/15 [History] Calcium Acetate [Phos-LO] 1,334 mg PO TIDWM 09/06/16 [History] ARIPiprazole [Abilify] 10 mg PO DAILY 09/13/17 [History] Aspirin Enteric Coated [Aspirin EC] 81 mg PO DAILY 09/13/17 [History] Budesonide/Formoterol 160/4.5 [Symbicort 160/4.5] 2 puff IH BIDR 09/13/17 [ History] Cholecalciferol (Vitamin D3) [Vitamin D3] 50,000 unit PO TH 09/13/17 [History] Sevelamer [Renvela] 800 mg PO DAILY 09/13/17 [History] Albuterol Neb [AccuNeb] 0.63 mg IH Q6H PRN 10/18/17 [History] amLODIPine [Norvasc] 5 mg PO DAILY 12/30/17 [History] Clopidogrel [Plavix] 75 mg PO DAILY 02/03/18 [History] Rosuvastatin Calcium [Crestor] 20 mg PO DAILY 02/27/18 [History] Amitriptyline [Elavil] 50 mg PO HS tablet 03/24/18 [Rx] Metoclopramide [Reglan] 5 mg PO TIDAC 3 Days #9 ud.liq 04/08/18 [Rx] Sucralfate [Carafate] 1 gm PO QIDAC 3 Days #12 tablet 04/08/18 [Rx] Renal Vitamin [Renal Caps Softgel] 1 mg PO DAILY capsule 04/17/18 [Rx] Carvedilol 12.5 mg PO BID 04/28/18 [History] Darbepoetin [Aranesp] 60 mcg SQ TH 04/28/18 [History] Insulin DETEMIR [Levemir] 28 unit SQ HS 04/28/18 [History] Insulin LISPRO [HumaLOG] 2 - 10 units SQ TIDWM 04/28/18 [History] Lactobacillus Acidophilus/Fos [Acidophilus Probiotic Tablet] 1 tab PO DAILY [History] Omeprazole [PriLOSEC] 20 mg PO DAILY 04/28/18 [History] Ondansetron HCl [Zofran] 4 mg PO Q12H PRN 04/28/18 [History] Gentamicin Oint [Garamycin] 1 appl TP BID #1 tube 06/17/18 [Rx] Isosorbide MONOnitrate (24 HR) [Imdur] 30 mg PO DAILY #30 tab.er.24h 07/04/18 [ Rx] Benzonatate [Tessalon] 200 mg PO TID PRN 10 Days #30 capsule 07/22/18 [Rx] Gabapentin [Neurontin] 100 mg PO TID 4 Days #12 capsule 07/22/18 [Rx] OxyCODONE/APAP 5/325 [Percocet 5/325 MG] 1 each PO Q8HR PRN 2 Days #6 tablet 09/27 [Rx] Allergies/Adverse Reactions: 3 Allergy/AdvReac Type Severity Reaction Status Date / Time piperacillin [From Zosyn] Allergy Anaphylaxis Verified 07/05/18 10:03 tazobactam [From Zosyn] Allergy Anaphylaxis Verified 07/05/18 10:03 Date of admission: 07/14/18 12:22 Primary care physician: Tristen Quintana MD Consults: 07/14/18 13:55 Consult to Wound Care [CONS] Routine Reason for Consult: Patient receiving wound care once per week at [facility], last received 07/13/2018. Call Completed: No 07/15/18 07:45 Consult to Dialysis [CONS] ONCE 07/15/18 10:17 Consult to Director Clinical Research [CONS] Routine Reason for SW Consult: rtn wmp 07/16/18 09:45 Consult to Dialysis [CONS] ONCE 07/19/18 06:45 Consult to Dialysis [CONS] ONCE 07/19/18 16:06 Consult to Infectious Diseases [CONS] Routine Consulting Provider: Infectious Disease Olivia Reason for Consult: GNR in sputum, patient with prior MDROs, CXR with infiltrates, but patient is asymptomatic, pls review Call Completed: Yes 07/21/18 07:15 Consult to Dialysis [CONS] ONCE 07/21/18 15:25 Consult to Invasive Line Access Team [CONS] Routine Reason for Consult: Ertapenem x 14 days Line Type: EPIV 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 Skin:Normal color, no rash. Venous stasis dermatitis noted to bilateral upper and lower extremities. LUE with AVF, mild bleeding during HD HEENT:Pupils equal, round and reactive. Cardiovascular:Heart sounds distant. Normal S1 & S2, no rubs, murmurs or gallops. No JVD. Rhythm regular Lungs:Distant breath sounds, but no wheezes or crackles Abdomen:Soft, non-tender, no rigidity. Extremities:No deformity, tenderness, clubbing. 2+ pitting edema to bilateral lower extremities, dressing clean and dry Neurological:Normal cognition and motor skills. Pulses:Carotid and radial pulses normal +2. - Patient Status Disposition: Transfer LTC Condition: Fair - Discharge Instructions Follow Up With: Tristen Quintana MD [Primary Care Provider] - (Please follow up with ECF PCP)
--- NOTE | 2018-07-22 08:32 | Physician Discharge Referral ---
- Diagnosis (1) Pneumonia Priority: Primary Status: Acute (2) SOB (shortness of breath) Priority: Primary Status: Acute (3) Anemia Priority: Primary Status: Chronic (4) ESRD (end stage renal disease) on dialysis Priority: Primary Status: Chronic (5) Wounds, multiple Priority: Primary Status: Chronic (6) Diabetes mellitus Priority: Primary Status: Chronic - Transfer Medications Prescriptions: Benzonatate [Tessalon] 200 mg PO TID PRN 10 Days #30 capsule PRN Reason: Cough Home Medications: Colestipol HCl [Colestid] 1 gm PO BID 06/12/15 [History] Calcium Acetate [Phos-LO] 1,334 mg PO TIDWM 09/06/16 [History] ARIPiprazole [Abilify] 10 mg PO DAILY 09/13/17 [History] Aspirin Enteric Coated [Aspirin EC] 81 mg PO DAILY 09/13/17 [History] Budesonide/Formoterol 160/4.5 [Symbicort 160/4.5] 2 puff IH BIDR 09/13/17 [ History] Cholecalciferol (Vitamin D3) [Vitamin D3] 50,000 unit PO TH 09/13/17 [History] Sevelamer [Renvela] 800 mg PO DAILY 09/13/17 [History] Albuterol Neb [AccuNeb] 0.63 mg IH Q6H PRN 10/18/17 [History] amLODIPine [Norvasc] 5 mg PO DAILY 12/30/17 [History] Clopidogrel [Plavix] 75 mg PO DAILY 02/03/18 [History] Rosuvastatin Calcium [Crestor] 20 mg PO DAILY 02/27/18 [History] Amitriptyline [Elavil] 50 mg PO HS tablet 03/24/18 [Rx] Metoclopramide [Reglan] 5 mg PO TIDAC 3 Days #9 ud.liq 04/08/18 [Rx] Sucralfate [Carafate] 1 gm PO QIDAC 3 Days #12 tablet 04/08/18 [Rx] Renal Vitamin [Renal Caps Softgel] 1 mg PO DAILY capsule 04/17/18 [Rx] Carvedilol 12.5 mg PO BID 04/28/18 [History] Darbepoetin [Aranesp] 60 mcg SQ TH 04/28/18 [History] Insulin DETEMIR [Levemir] 28 unit SQ HS 04/28/18 [History] Insulin LISPRO [HumaLOG] 2 - 10 units SQ TIDWM 04/28/18 [History] Lactobacillus Acidophilus/Fos [Acidophilus Probiotic Tablet] 1 tab PO DAILY [History] Omeprazole [PriLOSEC] 20 mg PO DAILY 04/28/18 [History] Ondansetron HCl [Zofran] 4 mg PO Q12H PRN 04/28/18 [History] Gentamicin Oint [Garamycin] 1 appl TP BID #1 tube 06/17/18 [Rx] Gabapentin [Neurontin] 100 mg PO TID 2 Days #6 capsule 06/18/18 [Rx] Isosorbide MONOnitrate (24 HR) [Imdur] 30 mg PO DAILY #30 tab.er.24h 07/04/18 [ Rx] OxyCODONE/APAP 5/325 [Percocet 5/325 MG] 1 each PO Q8HR PRN 2 Days #6 tablet [Rx] Benzonatate [Tessalon] 200 mg PO TID PRN 10 Days #30 capsule 07/22/18 [Rx] Allergies/Adverse Reactions: 3 Allergy/AdvReac Type Severity Reaction Status Date / Time piperacillin [From Zosyn] Allergy Anaphylaxis Verified 07/05/18 10:03 tazobactam [From Zosyn] Allergy Anaphylaxis Verified 07/05/18 10:03 - Respiratory Orders Smoking Cessation: Smoking cessation has been advised. For more information, call the [place] Tobacco Quit Line at 6-788-LQKI-NOW. - Mobility Orders Ambulate - Rehabiliation Orders Rehab Orders: Evaluation for Physical Therapy - Diet Orders Renal CERTIFICATION: I certify that the transfer of the above named patient to an Extended Care Facility is necessary for the continuing treatment of the diagnosis listed. The above information is true and accurate reflection of patient's current condition. Confidential - Redisclosure prohibited without a patient's written consent.
[2018-07-22] MEDS: Budesonide/Formoterol 160/4.5 1 PUFF INH IH SCH (09:37)
[2018-07-22] MEDS: Ipratropium/Albuterol Neb 3 ML IH PRN (09:37)
[2018-07-22] MEDS: Calcium Acetate 667 MG CAPSULE PO SCH (10:01)
[2018-07-22] MEDS: Gabapentin 100 MG CAPSULE PO SCH (10:01)
[2018-07-22] MEDS: ARIPiprazole 10 MG TABLET PO SCH (10:01)
[2018-07-22] MEDS: Sucralfate 1 GM TABLET PO SCH (10:01)
[2018-07-22] MEDS: Isosorbide MONOnitrate (24 HR) 30 MG TAB.ER.24H PO SCH (10:01)
[2018-07-22] MEDS: Aspirin Enteric Coated 81 MG Tablet PO SCH (10:01)
[2018-07-22] MEDS: Lactobacillus 1 EACH CAP.SPRINK PO SCH (10:01)
[2018-07-22] MEDS: Renal Vitamin 1 CAP CAPSULE PO SCH (10:02)
[2018-07-22] MEDS: amLODIPine 5 MG TABLET PO SCH (10:02)
[2018-07-22] MEDS: Metoclopramide 10 MG/10 ML UD.LIQ PO SCH (10:02)
[2018-07-22] MEDS: Cholecalciferol (D-3) 1,000 UNIT TABLET PO SCH (10:02)
[2018-07-22] MEDS: Gentamicin Oint 15 GM TUBE TP SCH (10:05)
--- NOTE | 2018-07-22 10:39 | Infectious Disease Progress No ---
Date of Encounter: 07/22/18 Time of Encounter: 09:45 - Assessment and Plan (1) Pneumonia Status: Acute Patient symptomatic with cough, sputum production, and shortness of breath. Location: Bilateral. Causative organism: Escherichia coli ESBL sensitive to ertapenem, gentamicin, tobramycin, Bactrim, and Zosyn and second gram-negative camacho that is likely Proteus with final ID and susceptibilities pending. The patient has a history of multidrug resistant Klebsiella and ESBL Escherichia coli in the sputum. Repeat CXR shows improved CHF and stable left basilar consolidation, either atelectasis vs. PNA. Continue ertapenem IV 500 mg daily. Dose adjusted based on the patient's hemodialysis status. Give after hemodialysis on dialysis days. (day 3) Duration of treatment depends on the clinical picture, but likely a total of 14 days. Treat through 08/02/18. EPIV placed. Weekly EPIV care per protocol. Qualifiers: Pneumonia type: due to unspecified organism Laterality: right Lung location: lower lobe of lung Qualified Code(s): J18.1 - Lobar pneumonia, unspecified organism (2) SOB (shortness of breath) Status: Acute Likely secondary to pneumonia and COPD. Management per the primary team. (3) Acute exacerbation of chronic obstructive airways disease Status: Resolved Appears improved. Management per the primary team. (4) CAD (coronary artery disease) Status: Chronic Qualifiers: Coronary Disease-Associated Artery/Lesion type: [place] artery [place] vs. transplanted heart: [place] heart Associated angina: with unstable angina Qualified Code(s): I25.110 - Atherosclerotic heart disease of [place] coronary artery with unstable angina pectoris (5) CKD (chronic kidney disease), stage IV Status: Chronic Nephrology consult to assist with hemodialysis management. Dose adjust antibiotics based on hemodialysis status. (6) Diabetes Status: Acute Recommend aggressive glucose monitoring and control to promote wound healing and prevent reinfection. Management per the primary team. Qualifiers: Diabetes mellitus type: type 2 Diabetes mellitus [facility] insulin use: with [facility] use Diabetes mellitus complication status: with unspecified complications Qualified Code(s): E11.8 - Type 2 diabetes mellitus with unspecified complications; Z79.4 - prison (current) use of insulin (7) HTN (hypertension) Status: Chronic Qualifiers: Hypertension type: essential hypertension Qualified Code(s): I10 - Essential (primary) hypertension - Subjective Interval history: Patient seen and examined sitting up in the bedside chair. No acute events noted overnight. Patient states overall she feels okay. She denies any fevers or chills or rigors. Reports shortness of breath and a cough that is now productive of bloody sputum. Denies any nausea or vomiting or diarrhea. She denies any abdominal pain. She states she had some burning with urination prior to admission, but denies any at this time. She denies any extremity pain , but does report some pain in her coccyx region. She denies any oral thrush or new skin lesions. Infect Dis PN-Objective Data - Labs CBC & Chem 7: 07/22/18 03:33 07/22/18 03:33 Labs: Laboratory Results - last 24 hr 07/21/18 07/21/18 07/21/18 07:46 11:16 16:17 WBC RBC Hgb Hct MCV MCH MCHC RDW Plt Count MPV Immature Gran % Seg Neutrophils % Lymphocytes % Monocytes % Eosinophils % Basophils % Neutrophils # Lymphocytes # Monocytes # Eosinophils # Basophils # Platelet Estimate Hypochromasia Sodium Potassium Chloride Carbon Dioxide BUN Creatinine Est GFR ( Amer) Est GFR (Non-Af Amer) BUN/Creatinine Ratio Glucose POC Glucose 118 H 131 H 199 H Calculated Osmolality Calcium 07/21/18 07/21/18 07/22/18 16:31 19:43 03:33 WBC 7.3 6.6 RBC 3.28 L 3.31 L Hgb 8.0 L 7.9 L Hct 26.6 L 27.7 L MCV 81.1 L 83.7 MCH 24.4 L 23.9 L MCHC 30.1 L 28.5 L RDW 18.0 H 18.2 H Plt Count 134 L 136 L MPV 12.0 11.3 Immature Gran % 1.5 0.8 Seg Neutrophils % 73.8 71.0 Lymphocytes % 14.8 16.0 Monocytes % 8.4 10.1 Eosinophils % 1.1 1.5 Basophils % 0.4 0.6 Neutrophils # 5.4 4.7 Lymphocytes # 1.1 1.1 Monocytes # 0.6 0.7 Eosinophils # 0.1 0.1 Basophils # 0.0 0.0 Platelet Estimate Normal Hypochromasia Present A Sodium Potassium Chloride Carbon Dioxide BUN Creatinine Est GFR ( Amer) Est GFR (Non-Af Amer) BUN/Creatinine Ratio Glucose POC Glucose 242 H Calculated Osmolality Calcium 07/22/18 03:33 WBC RBC Hgb Hct MCV MCH MCHC RDW Plt Count MPV Immature Gran % Seg Neutrophils % Lymphocytes % Monocytes % Eosinophils % Basophils % Neutrophils # Lymphocytes # Monocytes # Eosinophils # Basophils # Platelet Estimate Hypochromasia Sodium 134 L Potassium 4.2 Chloride 94 L Carbon Dioxide 33 H BUN 25 H Creatinine 3.06 H Est GFR ( Amer) 19 L Est GFR (Non-Af Amer) 15 L BUN/Creatinine Ratio 8 Glucose 172 H POC Glucose Calculated Osmolality 286 Calcium 8.7 Cultures: Cultures 07/18/18 15:10 Sputum Culture - Preliminary Sputum Escherichia coli ESBL Gram Negative Camacho#2 07/16/18 09:09 Blood Culture - Final Peripheral Venipuncture No growth. Final report. 07/16/18 09:09 Blood Culture - Final Peripheral Venipuncture No growth. Final report. - Impressions Impressions Chest X-Ray 07/22/18 08:00 IMPRESSION: 1. Mildly improved CHF with stable small bilateral pleural effusions, partially loculated on the right. 2. Stable left basilar consolidation, either due to atelectasis or pneumonia. D/ / Naren Shore MD / Naren Shore MD Interpreting Provider: Naren Shore MD Exam - Constitutional Vitals: Temp Pulse Resp BP Pulse Ox 98.0 F 85 20 127/67 91 07/22/18 07:16 07/22/18 07:16 07/22/18 09:37 07/22/18 07:16 07/22/18 09:37 General appearance: cooperative, morbidly obese, no acute distress - Head Head exam: Present: atraumatic, normal inspection, normocephalic - Eye Eye exam: Present: EOMI, normal appearance, PERRL Pupils: Present: normal accommodation - ENT ENT exam: Present: mucous membranes moist - Neck Neck exam: Present: normal inspection - Respiratory Respiratory exam: Present: rhonchi (throughout). Absent: CTAB, rales, respiratory distress, wheezes - Cardiovascular Cardiovascular exam: Present: RRR, +S1, +S2 - GI/Abdominal GI/Abdominal exam: Present: distended (obese), normal bowel sounds, soft. Absent: tenderness - Extremities Exam Extremities exam: Present: normal inspection. Absent: joint swelling, pedal edema, tenderness - Neurological Exam Neurological exam: Present: alert, oriented X3, no focal deficits - Psychiatric Psychiatric exam: Present: normal affect, normal mood - Skin Skin exam: Present: dry, intact, normal color, warm - Additional findings Additional findings: AV fistula noted to the LUE +/+. Consult Discharge Plan - Plan Referrals: Tristen Quintana MD [Primary Care Provider] - (Please follow up with F PCP) Prescriptions: OxyCODONE/APAP 5/325 [Percocet 5/325 MG] 1 each PO Q8HR PRN 2 Days #6 tablet PRN Reason: Pain Benzonatate [Tessalon] 200 mg PO TID PRN 10 Days #30 capsule PRN Reason: Cough Gabapentin [Neurontin] 100 mg PO TID 4 Days #12 capsule
== END 2018-07-22 11:35 ==
LOC: EMEROOARM 09:38 → 2SOUTHHOLD 09:38 → SUATTDRO 12:22 → 2SOUTHHOLD 12:49 → 2ANU 20:56
PROVIDERS: ADMIT Internal Medicine; ATTEND Internal Medicine

== ENCOUNTER 2018-07-23 07:14 | Observation (INO) ==
[2018-07-23] MEDS ORDERED: Aspirin 81 MG TAB.CHEW PO ONE (07:18)
[2018-07-23] MEDS ORDERED: Ipratropium/Albuterol Neb 3 ML IH ONE (07:32)
[2018-07-23] MEDS ORDERED: 0.9 % Sodium Chloride 500 ML IVC ONE (07:32)
--- NOTE | 2018-07-23 07:42 | Emergency Department Note ---
Disposition Clinical Impression: Chest pain due to CAD, End stage renal disease on dialysis Acute on chronic congestive heart failure Qualifiers: Heart failure type: unspecified Qualified Code(s): I50.9 - Heart failure, unspecified Volume overload Qualifiers: Hypervolemia type: unspecified Qualified Code(s): E87.70 - Fluid overload, unspecified Pneumonia Qualifiers: Pneumonia type: due to unspecified organism Laterality: left Lung location: lower lobe of lung Qualified Code(s): J18.1 - Lobar pneumonia, unspecified organism Disposition: Admitted As Inpatient Condition: Fair Time of Disposition: 08:28 General Adult HPI - General Chief complaint: ED Shortness of Breath/Dyspnea Stated complaint: HERNÁN, CP Time Seen by Provider: 07/23/18 07:18 Source: patient, EMS Mode of arrival: EMS Limitations: no limitations Nursing Notes Reviewed: Yes Vital Signs Reviewed: Yes - History of Present Illness HPI Narrative: Patient presents to the ED with the chief complaint chest pain. Patient was just discharged from the hospital yesterday for bilateral pneumonia, on ertapenem. Patient also has a history of CHF, COPD and coronary artery disease. Patient does have stents and bypasses and does have known coronary artery disease, but nothing that is amenable to further intervention according to cardiology. Patient reports that she was at dialysis this morning at 0530 and she started feeling some centralized chest discomfort. Described it more as a heaviness. Some difficulty breathing above baseline. Denying any fever. No chills. Is having a productive cough. Denies any abdominal pain. No new rashes Pain Scale: 9 - Related Data Home Medications Medication Instructions Recorded Confirmed Colestipol HCl [Colestid] 1 gm PO BID 06/12/15 07/14/18 Calcium Acetate [Phos-LO] 1,334 mg PO TIDWM 09/06/16 07/14/18 ARIPiprazole [Abilify] 10 mg PO DAILY 09/13/17 07/14/18 Aspirin Enteric Coated [Aspirin EC] 81 mg PO DAILY 09/13/17 07/14/18 Budesonide/Formoterol 160/4.5 2 puff IH BIDR 09/13/17 07/14/18 [Symbicort 160/4.5] Cholecalciferol (Vitamin D3) 50,000 unit PO TH 09/13/17 07/14/18 [Vitamin D3] Sevelamer [Renvela] 800 mg PO DAILY 09/13/17 07/14/18 Albuterol Neb [AccuNeb] 0.63 mg IH Q6H PRN 10/18/17 07/14/18 amLODIPine [Norvasc] 5 mg PO DAILY 12/30/17 07/14/18 Clopidogrel [Plavix] 75 mg PO DAILY 02/03/18 07/14/18 Rosuvastatin Calcium [Crestor] 20 mg PO DAILY 02/27/18 07/14/18 Carvedilol 12.5 mg PO BID 04/28/18 07/14/18 Darbepoetin [Aranesp] 60 mcg SQ TH 04/28/18 07/14/18 Insulin DETEMIR [Levemir] 28 unit SQ HS 04/28/18 07/14/18 Insulin LISPRO [HumaLOG] 2 - 10 units SQ TIDWM 04/28/18 07/14/18 Lactobacillus Acidophilus/Fos 1 tab PO DAILY 04/28/18 07/14/18 [Acidophilus Probiotic Tablet] Omeprazole [PriLOSEC] 20 mg PO DAILY 04/28/18 07/14/18 Ondansetron HCl [Zofran] 4 mg PO Q12H PRN 04/28/18 07/14/18 Previous Rx's Medication Instructions Recorded Amitriptyline [Elavil] 50 mg PO HS tablet 03/24/18 Metoclopramide [Reglan] 5 mg PO TIDAC 3 Days #9 ud.[id number] 04/08/18 Sucralfate [Carafate] 1 gm PO QIDAC 3 Days #12 tablet 04/08/18 Renal Vitamin [Renal Caps Softgel] 1 mg PO DAILY capsule 04/17/18 Gentamicin Oint [Garamycin] 1 appl TP BID #1 tube 06/17/18 Isosorbide MONOnitrate (24 HR) 30 mg PO DAILY #30 tab.er.24h 07/04/18 [Imdur] Benzonatate [Tessalon] 200 mg PO TID PRN 10 Days #30 07/22/18 capsule Gabapentin [Neurontin] 100 mg PO TID 4 Days #12 capsule 07/22/18 OxyCODONE/APAP 5/325 [Percocet 1 each PO Q8HR PRN 2 Days #6 tablet 07/22/18 5/325 MG] Allergies Allergy/AdvReac Type Severity Reaction Status Date / Time piperacillin [From Zosyn] Allergy Anaphylaxis Verified 07/05/18 10:03 tazobactam [From Zosyn] Allergy Anaphylaxis Verified 07/05/18 10:03 Review of Systems: As reviewed in the HPI. All other systems reviewed are negative or normal. Past Medical History - Past Medical History Attestation: Yes The following information was validated with the patient. Source: old records reviewed Medical history: Reports: atrial fibrillation, CHF, COPD, coronary artery disease, diabetes, GI bleed, hyperlipidemia, hypertension, myocardial infarction , peripheral artery disease, renal disease, other Surgical history: Reports: angioplasty/stent, appendectomy, cholecystectomy, coronary bypass (CABG), hysterectomy, knee replacement, other, IVC filter Psychiatric history: Reports: anxiety, depression, schizophrenia, previous psychiatric hospitalization [employer] history: Reports: other - Social History Smoking Status: Current every day smoker Smokeless Tobacco Status: No Alcohol use: Reports: none Drug use: Reports: none Physical Exam CONSTITUTIONAL: [well appearing, alert and in no acute distress] EYES: [EOMI, clear conjunctiva, PERRLA] HENT: [Normocephalic, atraumatic, moist mucus membranes, normal oropharynx] NECK: [normal inspection, full ROM, trachea midline, no obvious swelling] PULMONARY: [Mild respiratory distress, decreased breath sounds bilateral bases, wheezing throughout CARDIOVASCULAR: [regular rate, A. fib, normal heart sounds, no murmurs, distal extremities are warm and well perfused] GASTROINSTESTINAL: [soft, non-tender, non-rigid, non-distended, no guarding, no rebound, normal bowel sounds] GENITOURINARY/RECTAL: [deferred] NEUROLOGIC: [Alert, oriented x3, normal speech, moves all extremities] EXTREMITIES: [Normal inspection, full ROM, no tenderness, no pedal edema, normal capillary refill] MUSCULOSKELETAL: [no gross deformities, atraumatic] SKIN: [No cyanosis, no diaphoresis, normal color, warm] PSYCHIATRIC: [normal mood and affect] - General General appearance: alert, in no apparent distress Course Course Narrative: Patient presenting with chest pain and shortness breath. Appears to be volume overloaded. Has not received dialysis yet today. Chest pain started at 5:30. Initial cardiac enzymes are unremarkable. EKG does not show any ischemic changes. Spoke with nephrology and they are agreeable with admission for dialysis. Would recommend inpatient social work consult. Admitted to the hospitalist. Vital Signs Temperature 97.9 F 07/23/18 07:18 Pulse Rate 78 07/23/18 07:18 Respiratory Rate 23 07/23/18 07:18 Blood Pressure 121/57 07/23/18 07:18 O2 Sat by Pulse Oximetry 99 07/23/18 07:18 Temperature 97.9 F 07/23/18 07:18 Pulse Rate 71 07/23/18 08:41 Respiratory Rate 13 07/23/18 08:41 Blood Pressure 120/85 07/23/18 08:41 O2 Sat by Pulse Oximetry 100 07/23/18 08:41 Oxygen Delivery Oxygen Delivery Nasal Cannula Medical Decision Making - Medical Records Medical records reviewed: Yes I reviewed the patient's medical records. - Lab Data Lab results reviewed: Yes I reviewed the patient's lab results. Result diagrams: 07/23/18 07:28 07/23/18 07:28 Lab Results 07/23/18 07/23/18 07/23/18 Range/Units 07:18 07:18 07:28 WBC 6.7 (4.3-11.1) K/mcL RBC 3.29 L (3.82-4.97) M/mcL Hgb 7.9 L (11.5-15.4) g/dL Hct 27.3 L (35.3-44.9) % MCV 83.0 (83.0-100.0) fL MCH 24.0 L (28.0-33.3) pg MCHC 28.9 L (31.6-35.5) g/dL RDW 18.1 H (11.5-14.5) % Plt Count 131 L (140-400) K/mcL MPV 11.6 (9.4-12.4) fL Immature Gran % 1.0 (0-4) % Seg Neutrophils % 71.9 % Lymphocytes % 15.0 % Monocytes % 9.3 % Eosinophils % 2.1 % Basophils % 0.7 % Neutrophils # 4.8 (1.6-8.9) K/mcL Lymphocytes # 1.0 (0.6-4.6) K/mcL Monocytes # 0.6 (0.0-1.3) K/mcL Eosinophils # 0.1 (0.0-0.6) K/mcL Basophils # 0.1 (0.0-0.2) K/mcL Platelet Estimate Decreased L (Normal) Hypochromasia Present A (Not Present) PT 15.1 H (9.4-12.1) Seconds INR 1.3 APTT 48.8 H (26.0-36.0) Seconds Sodium (136-145) mEq/L Potassium (3.5-5.1) mEq/L Chloride (98-107) mEq/L Carbon Dioxide (23-29) mEq/L BUN (8-23) mg/dL Creatinine (0.60-1.20) mg/dL Est GFR ( Amer) (> 60) Est GFR (Non-Af Amer) (> 60) BUN/Creatinine Ratio (6-26) Glucose (70-105) mg/dL Calculated Osmolality (280-300) Calcium (8.6-10.3) mg/dL Troponin I (< 0.04) ng/mL B-Natriuretic Peptide 1187 H (Less than 100) pg/mL 07/23/18 Range/Units 07:28 WBC (4.3-11.1) K/mcL RBC (3.82-4.97) M/mcL Hgb (11.5-15.4) g/dL Hct (35.3-44.9) % MCV (83.0-100.0) fL MCH (28.0-33.3) pg MCHC (31.6-35.5) g/dL RDW (11.5-14.5) % Plt Count (140-400) K/mcL MPV (9.4-12.4) fL Immature Gran % (0-4) % Seg Neutrophils % % Lymphocytes % % Monocytes % % Eosinophils % % Basophils % % Neutrophils # (1.6-8.9) K/mcL Lymphocytes # (0.6-4.6) K/mcL Monocytes # (0.0-1.3) K/mcL Eosinophils # (0.0-0.6) K/mcL Basophils # (0.0-0.2) K/mcL Platelet Estimate (Normal) Hypochromasia (Not Present) PT (9.4-12.1) Seconds INR APTT (26.0-36.0) Seconds Sodium 134 L (136-145) mEq/L Potassium 4.2 (3.5-5.1) mEq/L Chloride 96 L (98-107) mEq/L Carbon Dioxide 31 H (23-29) mEq/L BUN 29 H (8-23) mg/dL Creatinine 3.36 H (0.60-1.20) mg/dL Est GFR ( Amer) 17 L (> 60) Est GFR (Non-Af Amer) 14 L (> 60) BUN/Creatinine Ratio 9 (6-26) Glucose 185 H (70-105) mg/dL Calculated Osmolality 289 (280-300) Calcium 8.8 (8.6-10.3) mg/dL Troponin I < 0.03 (< 0.04) ng/mL B-Natriuretic Peptide (Less than 100) pg/mL - Radiology Data Radiology results reviewed: Yes I reviewed the patient's radiology results. - EKG Data EKG #1 EKG attestation: Yes I reviewed and interpreted this EKG. EKG results narrative: A. fib, rate 80, normal intervals, normal axis, no acute ischemic changes Attestation Statement - Attestation Attestation: I examined this patient and my medical decision-making was reviewed with the Resident Physician, Dr. Del Angel. I agree with the documented findings, disposition and treatment plan as described except to the extent set forth below. Patient is a 63-year-old white female with history of end-stage renal disease, known coronary disease status post remote CABG, with multiple medical problems who is sent from dialysis this morning with complaints of chest pain shortness of breath. Patient states she began having symptoms approximately 5:30 this morning and notify the dialysis nurse who sent her before she had any of her dialysis treatment today. Patient arrived to the emergency department with some mild conversational dyspnea but no hypoxia on her home 3 L nasal cannula oxygen. Patient appears tired but no significant respiratory distress on arrival. Patient had just left the hospital yesterday after being seen for acute exacerbation of congestive heart failure along with bilateral pneumonia and had been seen by infectious disease and is receiving IV medications. Patient was supposed to receive her dose of antibiotics after dialysis today so she has not had anything yet today. Patient's hemodynamically stable on arrival. I agree with patient's physical exam findings as documented. Patient with mild tachypnea but otherwise vital signs are stable. Patient's EKG was without ischemia. Patient received nitroglycerin and Lasix here in the emergency department, lab evaluation and repeat chest x-ray was obtained. Patient is chronically anemic with stable hemoglobin. Patient's creatinine near baseline serum creatinine for her with end-stage renal disease. Patient with elevated BNP with findings consistent with what appears to be worsening left basilar infiltrate and congestive heart failure. Patient will be admitted to the hospitalist service for further evaluation and management. Initial troponin today is negative. Nephrology was consulate from the ED for dialysis in consultation.
[2018-07-23 07:52] LABS: Basophils % 0.7 %; Platelet Count 131 K/mcL (140-400)
[2018-07-23 07:54] LABS: Basophils # 0.1 K/mcL (0.0-0.2); Eosinophils # 0.1 K/mcL (0.0-0.6); Eosinophils % 2.1 %; Hematocrit 27.3 % (35.3-44.9); Hemoglobin 7.9 g/dL (11.5-15.4); Mean Corpuscular HGB Conc 28.9 g/dL (31.6-35.5); Mean Platelet Volume 11.6 fL (9.4-12.4); Monocytes # 0.6 K/mcL (0.0-1.3); Monocytes % 9.3 %; Neutrophils # 4.8 K/mcL (1.6-8.9); Red Blood Count 3.29 M/mcL (3.82-4.97); Red Cell Distribution Width 18.1 % (11.5-14.5); Segmented Neutrophils % 71.9 %
[2018-07-23 08:14] LABS: BUN/Creatinine Ratio 9 (6-26); Blood Urea Nitrogen 29 mg/dL (8-23); Calcium 8.8 mg/dL (8.6-10.3); Carbon Dioxide 31 mEq/L (23-29); Chloride 96 mEq/L (98-107); Glucose 185 mg/dL (70-105); Osmolality,Calculated 289 (280-300); Potassium 4.2 mEq/L (3.5-5.1); Sodium 134 mEq/L (136-145); eGFR For Non-African Americans 14 (> 60)
[2018-07-23 08:15] LABS: Troponin I < 0.03 ng/mL (< 0.04)
[2018-07-23] MEDS ORDERED: Furosemide 40 MG/4 ML VIAL IVP ONE (08:17)
[2018-07-23 08:20] LABS: INR 1.3; Prothrombin Time 15.1 Seconds (9.4-12.1)
[2018-07-23 08:22] LABS: Activated Partial Thrombo Time 48.8 Seconds (26.0-36.0)
[2018-07-23 08:31] LABS: Hypochromasia Present (Not Present); Platelet Estimate Decreased (Normal)
--- NOTE | 2018-07-23 09:06 | Internal Med History&Physical ---
Date of Encounter: 07/23/18 Time of Encounter: 09:04 Internal Medicine - H&P: HPI Chief complaint: chest pain History of present illness: Ms. Riley is a 63 year old female with CAD S/P stent in 12/2017, HFpEF, COPD on homeO2 , IDDM 2, dyspepsia, historically rate controlled atrial fibrillation not on OAC ( vaginal bleed/ anemia) , and ESRD on hemodialysis (, , wed) and recent admission for fluid overload and PNA discharged on 07/22 presented to the ED with complaint of chest pain. She reports that she developed shortness of breath in the early hours of the morning and soon after developed a uncomfortable feeling in the middle of her chest which has resolved by itself after 30 minutes. She reports that the pain was 3 out of 10, pressure-like and occurred after her shortness of breath. She was at the chest pain was nonradiating, more of an uncomfortable feeling and relates it to the shortness of breath. She cannot recall alleviating or aggravating factors and her pain was self resolved. She does report that she is not compliant with her fluid restrictions as she should understanding that she is on dialysis. Today she has not received dialysis however she is scheduled for dialysis on Tuesdays, , Saturdays. Reports that her cough has improved since she was treated and discharged yesterday. Denies any adverse reactions to the antibiotics that she was discharged on. She denies fever, chills, palpitations, nausea, vomiting, diarrhea. Denies having recurrent chest pain, shortness of breath is improved with oxygen provided in the emergency department. i had a long discussion with patient about her wishes and goals of care. she wishes to continue to be DNR CCA DNI all questions answered and emotional support provided In the ED chest x-ray was done which showed mildly enlarged cardiac silhouette with prominence of the common area vasculature. With a small left pleural effusion with left basilar opacification. Troponin was negative. She was endorsed for admission for chest pain rule out ACS and fluid overload. Nephrology was consulted by the ED physician. Past Med Surg Social Fam HX - Past Medical History Medical history: atrial fibrillation, CHF, COPD, coronary artery disease, diabetes, GI bleed, hyperlipidemia, hypertension, myocardial infarction, peripheral artery disease, renal disease, other Additional medical history: AV fistula for dialysis ++ Psychiatric history: anxiety, depression, schizophrenia, previous psychiatric hospitalization - Past Surgical History Surgical History: angioplasty/stent, appendectomy, cholecystectomy, coronary bypass (CABG), hysterectomy, knee replacement, other, IVC filter Additional surgical history: left arm fistulogram with covered stent placement left basilic vein 2016. kidney stones 1996. double Bypass 1998. stents x5 unsure date. right wrist 2017 - Social History Smoking Status: Current every day smoker Smokeless Tobacco Status: No Alcohol use: none Drug use: none - Family History Father Family Member Ethnicity: Non- Living Status: Hx Family Cardiac Disorders: Yes Hx Family Respiratory Disorders: Yes Hx Family Cancer: Yes (Polycythemia) Hx Family Endocrine Disorder: Yes (DM) Mother Family Member Ethnicity: Non- Living Status: Still Living Hx Family Cardiac Disorders: Yes Hx Family Respiratory Disorders: Yes (asthma, COPD) Brother Adopted: No Family Member Ethnicity: Non- Living Status: Still Living Hx Family Cardiac Disorders: No Hx Family Respiratory Disorders: No Hx Family Cancer: No Hx Family GI Disorders: No Hx Family Endocrine Disorder: No Hx Family Neuromuscular Disorders: No Hx Family Neurologic Disorders: No Hx Family HEENT Disorders: No Hx Family Autoimmune Disorders: No Sister Adopted: No Family Member Ethnicity: Non- Living Status: Still Living Hx Family Cardiac Disorders: Yes Hx Family Respiratory Disorders: No Hx Family Cancer: No Hx Family GI Disorders: No Hx Family Endocrine Disorder: Yes Hx Family Neuromuscular Disorders: No Hx Family Neurologic Disorders: No Hx Family HEENT Disorders: No Hx Family Autoimmune Disorders: No Internal Medicine - H&P: Meds Colestipol HCl [Colestid] 1 gm PO BID 06/12/15 [History] Calcium Acetate [Phos-LO] 1,334 mg PO TIDWM 09/06/16 [History] ARIPiprazole [Abilify] 10 mg PO DAILY 09/13/17 [History] Aspirin Enteric Coated [Aspirin EC] 81 mg PO DAILY 09/13/17 [History] Budesonide/Formoterol 160/4.5 [Symbicort 160/4.5] 2 puff IH BIDR 09/13/17 [ History] Cholecalciferol (Vitamin D3) [Vitamin D3] 50,000 unit PO TH 09/13/17 [History] Sevelamer [Renvela] 800 mg PO DAILY 09/13/17 [History] Albuterol Neb [AccuNeb] 0.63 mg IH Q6H PRN 10/18/17 [History] amLODIPine [Norvasc] 5 mg PO DAILY 12/30/17 [History] Clopidogrel [Plavix] 75 mg PO DAILY 02/03/18 [History] Rosuvastatin Calcium [Crestor] 20 mg PO DAILY 02/27/18 [History] Amitriptyline [Elavil] 50 mg PO HS tablet 03/24/18 [Rx] Metoclopramide [Reglan] 5 mg PO TIDAC 3 Days #9 ud.liq 04/08/18 [Rx] Sucralfate [Carafate] 1 gm PO QIDAC 3 Days #12 tablet 04/08/18 [Rx] Renal Vitamin [Renal Caps Softgel] 1 mg PO DAILY capsule 04/17/18 [Rx] Carvedilol 12.5 mg PO BID 04/28/18 [History] Darbepoetin [Aranesp] 60 mcg SQ TH 04/28/18 [History] Insulin DETEMIR [Levemir] 28 unit SQ HS 04/28/18 [History] Insulin LISPRO [HumaLOG] 2 - 10 units SQ TIDWM 04/28/18 [History] Lactobacillus Acidophilus/Fos [Acidophilus Probiotic Tablet] 1 tab PO DAILY [History] Omeprazole [PriLOSEC] 20 mg PO DAILY 04/28/18 [History] Ondansetron HCl [Zofran] 4 mg PO Q12H PRN 04/28/18 [History] Gentamicin Oint [Garamycin] 1 appl TP BID #1 tube 06/17/18 [Rx] Isosorbide MONOnitrate (24 HR) [Imdur] 30 mg PO DAILY #30 tab.er.24h 07/04/18 [ Rx] Benzonatate [Tessalon] 200 mg PO TID PRN 10 Days #30 capsule 07/22/18 [Rx] Gabapentin [Neurontin] 100 mg PO TID 4 Days #12 capsule 07/22/18 [Rx] OxyCODONE/APAP 5/325 [Percocet 5/325 MG] 1 each PO Q8HR PRN 2 Days #6 tablet 09/27 [Rx] 3 Allergy/AdvReac Type Severity Reaction Status Date / Time piperacillin [From Zosyn] Allergy Anaphylaxis Verified 07/05/18 10:03 tazobactam [From Zosyn] Allergy Anaphylaxis Verified 07/05/18 10:03 All Systems PM: review of systems was performed and is negative for pertinent findings except as documented above in the HPI. - Constitutional Vitals: Temp Pulse Resp BP Pulse Ox 97.9 F 71 13 120/85 100 07/23/18 07:18 07/23/18 08:41 07/23/18 08:41 07/23/18 08:41 07/23/18 08:41 Exam: General: Patient is alert, oriented, no acute distress, morbidly obese, speaks in full sentences Head: atraumatic, normocephalic, Eye: normal appearance, PERRL, no scleral icterus, no conjunctival injection ENT: mucous membranes moist, normal external ear exam Neck: normal inspection, trachea midline, full ROM, no carotid bruits Chest: normal inspection, symmetric chest rise, sternotomy scar Respiratory: Decreased breath sounds secondary to body habitus, crackles the posterior right lung field infrascapularly increased , no wheezes Cardiovascular: distent heart sounds secondary to body habitus irregular . s1 and s2 No clicks, rubs, gallops, or murmors. Abdomen: Bowel sounds present normoactive x-4 quadrants. Abdomen is soft, nondistended. no Epigastric tenderness. No guarding or rebound. No organomegaly noted, obese musculoskeletal: Spontaneously moving all extremities. +3 edema of lower extremities , Skin: warm, dry, intact. stage 3 sacral ulcer, erythema of bilateral lower extremities up to knee, warm to touch, right lateral tibia area has an ulcer 2x2 draining pus / laceration that is about 6cm long that is covered with bandage, left LLE wrapped with kerlix no signs of bleeding Neuro: Alert and oriented x4. Sensation light touch intact. Cranial nerves 2- 12 is intact. moves lower extremities on the bed, moving upper extremities Psych: Patient's affect is normal Internal Med - H&P Results - Labs CBC & Chem 7: 07/23/18 07:28 07/23/18 07:28 - EKG Data -: EKG Interpreted by Myself (atrial fibrillation, RAD, low voltage, nonspecific St-T changes ) - EKG Data Prior EKG available for review: yes When compared to previous EKG: there is no significant change - Assessment and plan (1) Chest pain Current Visit: Yes Status: Acute Assessment and plan: most likely secondary to fluid overload as per cardiology consult in jun 2018- Patient has residual coronary artery disease which have been deemed not amenable to angioplasty or further bypass grafts. Admission EKG stat fist troponin negative follow troponins and EKG Q6H Continue aspirin, Plavix, statins, beta vera Nephrology was consulted by the ED physician for dialysis today Qualifiers: Chest pain type: other chest pain Qualified Code(s): R07.89 - Other chest pain; R07.8 - Other chest pain (2) Volume overload Current Visit: Yes Status: Acute Assessment and plan: Most likely secondary to noncompliance with fluid restriction Nephrology consulted by the ED physician will follow recommendations due for dialysis today Fluid restriction Follow chest x-ray in the morning CXR: 07/23 IMPRESSION: 1. Mildly enlarged cardiac silhouette with prominence of the palm vasculature. 2. There may be a small left pleural effusion with left basilar opacification. TTE on 03/17/18 LVEF 60%. Normal LV chamber size, wall thickness and overall function. Atypical septal motion consistent with post-operative status. Mild segmental left ventricular systolic dysfunction. Qualifiers: Hypervolemia type: unspecified Qualified Code(s): E87.70 - Fluid overload, unspecified (3) Pneumonia Current Visit: Yes Status: Acute Assessment and plan: Was recently admitted for pneumonia- ID was consulted on last admission as sputum culture grew Escherichia coli ESBL On IV ertapenem will continue, Treat through 08/02/18. xcontinue home O2 Qualifiers: Pneumonia type: due to unspecified organism Laterality: left Lung location: lower lobe of lung Qualified Code(s): J18.1 - Lobar pneumonia, unspecified organism (4) ESRD (end stage renal disease) on dialysis Current Visit: Yes Status: Chronic Assessment and plan: Nephrology consulted by the ED physician will follow recommendations due for dialysis today phosphorus in AM (5) Diabetes mellitus Current Visit: No Status: Chronic Assessment and plan: Continue home medications Qualifiers: Diabetes mellitus type: type 2 Diabetes mellitus logistical engineer insulin use: with half-way use Diabetes mellitus complication status: with hyperglycemia Qualified Code(s): E11.65 - Type 2 diabetes mellitus with hyperglycemia; Z79.4 - attendant child activity (current) use of insulin; Z79.4 - assisted (current) use of insulin; Z79.4 - assisted (current) use of insulin; Z79.4 - attendant child activity (current ) use of insulin (6) Decubital ulcer Current Visit: Yes Status: Acute Assessment and plan: Wound care consult continue gentamicin ointment Qualifiers: Pressure injury stage: unstageable Laterality: unspecified laterality Qualified Code(s): L89.000 - Pressure ulcer of unspecified elbow, unstageable (7) Morbidly obese Current Visit: Yes Status: Acute Assessment and plan: BMI 43.7 nutrition consult - Time Spent With Patient Total time spent is greater than 50% in coordination of care (as documented) at patient's floor/unit and/or counseling patient:
[2018-07-23] MEDS ORDERED: Naloxone 0.4 MG/ML INJ IVP PRN (09:14)
[2018-07-23] MEDS ORDERED: Benzonatate 100 MG CAPSULE PO PRN (09:21)
[2018-07-23] MEDS ORDERED: 0.9 % Sodium Chloride 250 ML IVC PRN (09:30)
--- NOTE | 2018-07-23 09:30 | Nephrology Consult Note ---
Date of Encounter: 07/24/18 Time of Encounter: 09:27 Assessment and Plan (1) ESRD (end stage renal disease) on dialysis Current Visit: Yes Status: Chronic Chronic ESRD on HD TTS. Failed discharge from yesterday so she was not even out of the hospital for more than 24hr. I recommend a family meeting to strongly consider alternatives to chronic dialysis as she is no longer a stable candidate for chronic dialysis. Should consider hospice. I reviewed her labs, vitals, prior progress notes, med list, prior imaging, plus logged into the [employer] mobile leann to review her dialysis run sheets/ orders/encounters as well as called and spoke with the library helper who sent this pt back to the ER. All this complex E/M and MDM was used in which I was able to place her dialysis orders for today (Wednesday). Next HD is planned for Wednesday, if she has not yet been discharged. I will be available tomorrow if needed, otherwise, my colleague Dr. Askew will be on-call on Wednesday morning. Thank you. (2) Chest pain Current Visit: Yes Status: Acute Qualifiers: Qualified Code(s): R07.9 - Chest pain, unspecified History of Present Illness - Reason for Consult Consult date: 07/23/18 end stage renal disease Requesting physician: Carlos Bermeo - Chief Complaint ESRD - History of Present Illness Lynnette Riley is a very pleasant 63 y/o WF with a pmh of ESRD on HD TTS (primary ornamenter hand is Dr. Rivers), and she presented with a chronic CP. She said this was associated with her cough, which has been chronic. So I called the HD unit to inquire why the RN there sent her to the [facility] ER without completing HD. She said the the simply c/o chest and not knowing her hx, the RN sent her to the ER after less than 20min of dialysis. The pt when seen/examined by me reported that she felt about the same and she was not having a different kind of discomfort, and said that she was primarily sore from coughing. She was hospitalized last week as well. Past Med Surg Social Fam HX - Past Medical History Medical history: atrial fibrillation, CHF, COPD, coronary artery disease, diabetes, GI bleed, hyperlipidemia, hypertension, myocardial infarction, peripheral artery disease, renal disease, other Additional medical history: AV fistula for dialysis ++ Psychiatric history: anxiety, depression, schizophrenia, previous psychiatric hospitalization - Past Surgical History Surgical History: angioplasty/stent, appendectomy, cholecystectomy, coronary bypass (CABG), hysterectomy, knee replacement, other, IVC filter Additional surgical history: left arm fistulogram with covered stent placement left basilic vein 2016. kidney stones 1996. double Bypass 1998. stents x5 unsure date. right wrist 2017 - Social History Smoking Status: Current every day smoker Smokeless Tobacco Status: No Alcohol use: none Drug use: none - Family History Father Family Member Ethnicity: Non- Living Status: Hx Family Cardiac Disorders: Yes Hx Family Respiratory Disorders: Yes Hx Family Cancer: Yes (Polycythemia) Hx Family Endocrine Disorder: Yes (DM) Mother Family Member Ethnicity: Non- Living Status: Still Living Hx Family Cardiac Disorders: Yes Hx Family Respiratory Disorders: Yes (asthma, COPD) Brother Adopted: No Family Member Ethnicity: Non- Living Status: Still Living Hx Family Cardiac Disorders: No Hx Family Respiratory Disorders: No Hx Family Cancer: No Hx Family GI Disorders: No Hx Family Endocrine Disorder: No Hx Family Neuromuscular Disorders: No Hx Family Neurologic Disorders: No Hx Family HEENT Disorders: No Hx Family Autoimmune Disorders: No Sister Adopted: No Family Member Ethnicity: Non- Living Status: Still Living Hx Family Cardiac Disorders: Yes Hx Family Respiratory Disorders: No Hx Family Cancer: No Hx Family GI Disorders: No Hx Family Endocrine Disorder: Yes Hx Family Neuromuscular Disorders: No Hx Family Neurologic Disorders: No Hx Family HEENT Disorders: No Hx Family Autoimmune Disorders: No Medications and Allergies Colestipol HCl [Colestid] 1 gm PO BID 06/12/15 [History] Calcium Acetate [Phos-LO] 1,334 mg PO TIDWM 09/06/16 [History] ARIPiprazole [Abilify] 10 mg PO DAILY 09/13/17 [History] Aspirin Enteric Coated [Aspirin EC] 81 mg PO DAILY 09/13/17 [History] Budesonide/Formoterol 160/4.5 [Symbicort 160/4.5] 2 puff IH BIDR 09/13/17 [ History] Cholecalciferol (Vitamin D3) [Vitamin D3] 50,000 unit PO TH 09/13/17 [History] Sevelamer [Renvela] 800 mg PO DAILY 09/13/17 [History] Albuterol Neb [AccuNeb] 0.63 mg IH Q6H PRN 10/18/17 [History] amLODIPine [Norvasc] 5 mg PO DAILY 12/30/17 [History] Clopidogrel [Plavix] 75 mg PO DAILY 02/03/18 [History] Rosuvastatin Calcium [Crestor] 20 mg PO DAILY 02/27/18 [History] Amitriptyline [Elavil] 50 mg PO HS tablet 03/24/18 [Rx] Metoclopramide [Reglan] 5 mg PO TIDAC 3 Days #9 ud.liq 04/08/18 [Rx] Sucralfate [Carafate] 1 gm PO QIDAC 3 Days #12 tablet 04/08/18 [Rx] Renal Vitamin [Renal Caps Softgel] 1 mg PO DAILY capsule 04/17/18 [Rx] Carvedilol 12.5 mg PO BID 04/28/18 [History] Darbepoetin [Aranesp] 60 mcg SQ TH 04/28/18 [History] Insulin DETEMIR [Levemir] 28 unit SQ HS 04/28/18 [History] Insulin LISPRO [HumaLOG] 2 - 10 units SQ TIDWM 04/28/18 [History] Lactobacillus Acidophilus/Fos [Acidophilus Probiotic Tablet] 1 tab PO DAILY [History] Omeprazole [PriLOSEC] 20 mg PO DAILY 04/28/18 [History] Ondansetron HCl [Zofran] 4 mg PO Q12H PRN 04/28/18 [History] Gentamicin Oint [Garamycin] 1 appl TP BID #1 tube 06/17/18 [Rx] Isosorbide MONOnitrate (24 HR) [Imdur] 30 mg PO DAILY #30 tab.er.24h 07/04/18 [ Rx] Benzonatate [Tessalon] 200 mg PO TID PRN 10 Days #30 capsule 07/22/18 [Rx] Gabapentin [Neurontin] 100 mg PO TID 4 Days #12 capsule 07/22/18 [Rx] OxyCODONE/APAP 5/325 [Percocet 5/325 MG] 1 each PO Q8HR PRN 2 Days #6 tablet 09/27 [Rx] 3 Allergy/AdvReac Type Severity Reaction Status Date / Time piperacillin [From Zosyn] Allergy Anaphylaxis Verified 07/05/18 10:03 tazobactam [From Zosyn] Allergy Anaphylaxis Verified 07/05/18 10:03 Review of Systems All Systems: reviewed and no additional remarkable complaints except as stated Exam - Vital Signs Vital signs: Initial Vital Signs Temp Pulse Resp BP Pulse Ox 97.9 F 78 23 121/57 99 07/23/18 07:18 07/23/18 07:18 07/23/18 07:18 07/23/18 07:18 07/23/18 07:18 - General Appearance General appearance: well-developed, well-nourished, appears started age, obese, fatigue, frail EENT: ATNC, PERRL, mucous membranes moist Neck: supple Respiratory: course breath sounds Cardiology: edema, normal S1, normal S2 - Dialysis Access Dialysis Vascular Access: Arteriovenous Graft (Left UE) thrill: Yes bruit: Yes Gastrointestinal: normoactive bowel sounds, no tenderness, no guarding Integumentary: warm and dry, ecchymotic, chronic venous stasis Neurologic: no focal deficit, no asterixis, alert and oriented x3 Musculoskeletal: no deformities, no erythema, no cyanosis Psychiatric: mood/affect appropriate, cooperative Results - Lab Results 07/26/18 04:30 07/26/18 04:30 Most recent lab results Calcium 8.8 mg/dL (8.6-10.3) 07/23/18 07:28 I reviewed the labs, vitals, imaging, progress notes, med list, and also reviewed [employer] leann data as well as called the [facility] RN for full history. Consult Discharge Plan - Plan Referrals: Tristen Quintana MD [Primary Care Provider] -
[2018-07-23] MEDS: Lactobacillus 1 EACH CAP.SPRINK PO SCH (11:12)
[2018-07-23] MEDS: Calcium Acetate 667 MG CAPSULE PO SCH ×2 (11:13→17:02)
[2018-07-23] MEDS: Renal Vitamin 1 CAP CAPSULE PO SCH (11:13)
[2018-07-23] MEDS: Aspirin Enteric Coated 81 MG Tablet PO SCH (11:13)
[2018-07-23] MEDS: Sucralfate 1 GM TABLET PO SCH ×3 (11:13→22:21)
[2018-07-23] MEDS: ARIPiprazole 10 MG TABLET PO SCH (11:13)
[2018-07-23] MEDS: Budesonide/Formoterol 160/4.5 1 PUFF INH IH SCH ×2 (11:31→23:28)
[2018-07-23] MEDS ORDERED: Dextrose Gel 15 GM/37.5 ML TUBE PO PRN ×2 (11:33)
[2018-07-23] MEDS ORDERED: *HR* Dextrose 50 % in Water (Syg) 50 ML SYRINGE IVP PRN (11:33)
[2018-07-23] MEDS ORDERED: D5% in Water 1,000 ML IVC PRN (11:33)
[2018-07-23] MEDS: Metoclopramide 10 MG/10 ML UD.LIQ PO SCH ×2 (11:37→17:02)
[2018-07-23] MEDS: Isosorbide MONOnitrate (24 HR) 30 MG TAB.ER.24H PO SCH (11:38)
[2018-07-23] MEDS ORDERED: Ipratropium/Albuterol Neb 3 ML IH PRN (12:45)
[2018-07-23] MEDS ORDERED: 0.9 % Sodium Chloride 1,000 ML ONE (13:24)
[2018-07-23] MEDS: *HR* Heparin 5,000 UNIT/ML VIAL SQ SCH ×3 (17:00→22:25)
[2018-07-23] MEDS: Gabapentin 100 MG CAPSULE PO SCH ×2 (17:01→22:21)
[2018-07-23] MEDS: Insulin LISPRO 300 UNITS/3 ML VIAL SQ SCH ×2 (17:01→22:20)
[2018-07-23] MEDS: *HR* OxyCODONE/APAP 5/325 TABLET PO PRN (22:20)
[2018-07-23] MEDS: Insulin DETEMIR 100 UNIT/ML X5UNITS SQ SCH (22:33)
[2018-07-23] MEDS: Gentamicin Oint 15 GM TUBE TP SCH (22:35)
[2018-07-24 04:10] LABS: Basophils % 0.5 %; Eosinophils # 0.1 K/mcL (0.0-0.6); Hemoglobin 7.9 g/dL (11.5-15.4); Immature Granulocytes % 0.9 % (0-4); Lymphocytes % 17.4 %; Mean Corpuscular HGB Conc 28.2 g/dL (31.6-35.5); Mean Corpuscular Hemoglobin 23.8 pg (28.0-33.3); Mean Corpuscular Volume 84.3 fL (83.0-100.0); Mean Platelet Volume 12.4 fL (9.4-12.4); Monocytes # 0.5 K/mcL (0.0-1.3); Monocytes % 8.6 %; Platelet Count 132 K/mcL (140-400); Red Blood Count 3.32 M/mcL (3.82-4.97); Red Cell Distribution Width 18.2 % (11.5-14.5); Segmented Neutrophils % 70.6 %
[2018-07-24 04:28] LABS: Anisocytosis 1+ (Not Present); Calcium 8.8 mg/dL (8.6-10.3); Hypochromasia Present (Not Present); Phosphorous 2.7 mg/dL (2.7-4.5); Platelet Estimate Decreased (Normal); Potassium 4.4 mEq/L (3.5-5.1)
[2018-07-24] MEDS: *HR* Heparin 5,000 UNIT/ML VIAL SQ SCH ×3 (05:44→22:16)
[2018-07-24] MEDS: Sucralfate 1 GM TABLET PO SCH ×4 (08:28→21:49)
[2018-07-24] MEDS: Lactobacillus 1 EACH CAP.SPRINK PO SCH (08:28)
[2018-07-24] MEDS: Renal Vitamin 1 CAP CAPSULE PO SCH (08:28)
[2018-07-24] MEDS: Gabapentin 100 MG CAPSULE PO SCH ×3 (08:28→21:49)
[2018-07-24] MEDS: Isosorbide MONOnitrate (24 HR) 30 MG TAB.ER.24H PO SCH (08:29)
[2018-07-24] MEDS: Metoclopramide 10 MG/10 ML UD.LIQ PO SCH ×3 (08:29→15:52)
[2018-07-24] MEDS: Calcium Acetate 667 MG CAPSULE PO SCH ×3 (08:29→16:51)
[2018-07-24] MEDS: Aspirin Enteric Coated 81 MG Tablet PO SCH (08:29)
[2018-07-24] MEDS: ARIPiprazole 10 MG TABLET PO SCH (08:29)
[2018-07-24] MEDS: Insulin LISPRO 300 UNITS/3 ML VIAL SQ SCH ×4 (08:32→21:50)
[2018-07-24] MEDS: Budesonide/Formoterol 160/4.5 1 PUFF INH IH SCH ×2 (11:13→21:21)
[2018-07-24] MEDS: Gentamicin Oint 15 GM TUBE TP SCH ×2 (12:00→21:49)
--- NOTE | 2018-07-24 15:51 | Internal Med Progress Note ---
Hospitalist Progress Note - Encounter Date of Encounter: 07/24/18 Time of Encounter: 15:46 - Subjective Interval History: SUBJECTIVE: The patient was admitted to the hospital after experiencing several hours lasting anterior chest pain with progressing dyspnea. She was recently hospitalized here for treatment of pneumonia/fluid overload. We sent her home on 07/22/18. The patient got hemodialysis after the admission. She feels good. Denies chest pain and difficulty breathing. Denies coughing and wheezing. She is on 3 L/min nasal cannula oxygen; her baseline. She has not had any fever or chills recently. OBJECTIVE: Skin: Free of rash and discoloration. ENMT: Oral/pharyngeal mucosa is normal in appearance. Eyes: Sclera is white. There is no discharge from eyes. Respiratory: Normal breath sounds; no crackles or wheezes. CV: Heart is regular; no gallop or murmur. GI: Abdomen is soft and not tender. There is no palpable mass or visceromegaly. Neuro: There is no focal deficits. ASSESSMENT AND PLAN: The patient was admitted with chest pain. She has underlying atrial fibrillation and end-stage renal disease. One can see normal troponin (on 3 occasions). The patient has nonconclusive for coronary artery diseasesee results of cardiac catheterization from December of this year. Her last echocardiogram was done in March of this year. It showed ejection fraction of 60 %. There was no abnormalities detected. The treatment for her CAD/A. fib has been optimized. Cardiology is consulted. The patient is not a candidate for anticoagulation. She will continue hemodialysis on Tuesdays, and Saturdays. Nephrology is consulted. This patient was recently started on ertapenem for treatment of pneumonia. We will continue these antibiotics through August 02. Type 2 diabetes mellitus. Under fair control. We will continue diabetic diet, insulin Levemir and when necessary insulin Humalog. Anemia from chronic kidney disease. To be managed by nephrology. - Exam Vitals: Temp Pulse Resp BP Pulse Ox 98.2 F 85 18 125/66 97 07/24/18 15:12 07/24/18 15:12 07/24/18 15:12 07/24/18 15:12 07/24/18 15:12 Exam: xx - Assessment and Plan (1) Chest pain Current Visit: Yes Status: Acute (2) CAD (coronary artery disease) Current Visit: No Status: Acute (3) Chronic diastolic heart failure Current Visit: Yes Status: Chronic (4) Atrial fibrillation Current Visit: No Status: Acute (5) ESRD (end stage renal disease) on dialysis Current Visit: Yes Status: Chronic (6) Pneumonia Current Visit: Yes Status: Acute (7) Diabetes mellitus Current Visit: No Status: Chronic (8) Anemia Current Visit: No Status: Chronic - Time Spent with Patient Total time spent is greater than 50% in coordination of care (as documented) at patient's floor/unit and/or counseling patient: 25 - 35 minutes Plan of Care Discussed with: patient Internal Medicine: Result - Labs CBC & Chem 7: 07/24/18 03:15 07/24/18 03:15 Labs: Short CBC 07/24/18 Range/Units 03:15 WBC 5.6 (4.3-11.1) K/mcL Hgb 7.9 L (11.5-15.4) g/dL Hct 28.0 L (35.3-44.9) % Plt Count 132 L (140-400) K/mcL Neutrophils # 4.0 (1.6-8.9) K/mcL BMP 07/24/18 03:15 Sodium 137 Potassium 4.4 Chloride 97 L Carbon Dioxide 33 H BUN 17 Creatinine 2.44 H Glucose 185 H Calcium 8.8 Cardiac Enzymes 07/23/18 Range/Units 17:00 Troponin I < 0.03 (< 0.04) ng/mL - ABG Interpretation ABG results: PT/INR, D-dimer PT 15.1 Seconds (9.4-12.1) H 07/23/18 07:18 Consult Discharge Plan - Plan Referrals: Tristen Quintana MD [Primary Care Provider] - (1) Chest pain Qualifiers: Chest pain type: other chest pain Qualified Code(s): R07.89 - Other chest pain; R07.8 - Other chest pain (2) CAD (coronary artery disease) Qualifiers: Coronary Disease-Associated Artery/Lesion type: unspecified vessel or lesion type [place] vs. transplanted heart: unspecified whether [place] or transplanted heart Associated angina: without angina Qualified Code(s): I25.10 - Atherosclerotic heart disease of [place] coronary artery without angina pectoris (4) Atrial fibrillation Qualifiers: Atrial fibrillation type: chronic Qualified Code(s): I48.2 - Chronic atrial fibrillation (6) Pneumonia Qualifiers: Pneumonia type: due to unspecified organism Laterality: left Lung location: lower lobe of lung Qualified Code(s): J18.1 - Lobar pneumonia, unspecified organism (7) Diabetes mellitus Qualifiers: Diabetes mellitus type: type 2 Diabetes mellitus alf insulin use: with flight readiness technician use Diabetes mellitus complication status: with hyperglycemia Qualified Code(s): E11.65 - Type 2 diabetes mellitus with hyperglycemia; Z79.4 - bleach chlorinator (current) use of insulin; Z79.4 - bleach chlorinator (current) use of insulin ; Z79.4 - bleach chlorinator (current) use of insulin; Z79.4 - FPC (current) use of insulin (8) Anemia Qualifiers: Anemia type: due to chronic kidney disease Chronic kidney disease stage: on chronic dialysis Qualified Code(s): N18.6 - End stage renal disease; D63.1 - Anemia in chronic kidney disease; Z99.2 - Dependence on renal dialysis
[2018-07-24] MEDS: Insulin DETEMIR 100 UNIT/ML X5UNITS SQ SCH (21:50)
[2018-07-25] MEDS ORDERED: 0.9 % Sodium Chloride 250 ML IVC PRN (06:02)
[2018-07-25] MEDS ORDERED: 0.9 % Sodium Chloride 2,000 ML ONE (06:40)
[2018-07-25] MEDS: *HR* Heparin 5,000 UNIT/ML VIAL SQ SCH ×3 (06:46→20:42)
[2018-07-25 07:09] LABS: Platelet Count 141 K/mcL (140-400)
[2018-07-25 07:10] LABS: Hematocrit 28.1 % (35.3-44.9); Mean Corpuscular HGB Conc 28.5 g/dL (31.6-35.5); Mean Corpuscular Volume 84.1 fL (83.0-100.0); Mean Platelet Volume 11.6 fL (9.4-12.4); Red Blood Count 3.34 M/mcL (3.82-4.97); Red Cell Distribution Width 18.2 % (11.5-14.5)
[2018-07-25 07:27] LABS: Calcium 9.1 mg/dL (8.6-10.3); Potassium 5.1 mEq/L (3.5-5.1)
--- NOTE | 2018-07-25 10:02 | Nephrology Progress Note ---
Date of Encounter: 07/25/18 Time of Encounter: 09:58 - Assessment and Plan (1) ESRD (end stage renal disease) on dialysis Current Visit: Yes Status: Chronic Chronic ESRD on HD TTS. Failed discharge from yesterday so she was not even out of the hospital for more than 24hr. HD in progress for today. Strict I/O Avoid nephrotoxins and renal dose. Palliative care consulted. (2) Chest pain Current Visit: Yes Status: Acute Chest pain free at this time. Per primary. Qualifiers: Qualified Code(s): R07.9 - Chest pain, unspecified (3) Decubital ulcer Current Visit: Yes Status: Acute Wound care consulted. Qualifiers: Pressure injury stage: unstageable Laterality: unspecified laterality Qualified Code(s): L89.300 - Pressure ulcer of unspecified buttock, unstageable (4) Pneumonia Current Visit: Yes Status: Acute Per primary. Qualifiers: Pneumonia type: due to unspecified organism Laterality: left Lung location: lower lobe of lung Qualified Code(s): J18.1 - Lobar pneumonia, unspecified organism (5) Volume overload Current Visit: Yes Status: Acute 1.5 Liter fluid restriction. Qualifiers: Hypervolemia type: unspecified Qualified Code(s): E87.70 - Fluid overload, unspecified Subjective Principal diagnosis: HERNÁN/CP Interval history: Pt seen and examined during HD, tolerating well. Admits to SOB and fatigue. Denies nausea/vomiting. Objective - Vital Signs Vital signs: Vital Signs Temp Pulse Resp BP Pulse Ox 07/25/18 07:22 98.5 F 88 18 112/72 99 07/25/18 05:41 98.4 F 106 16 119/74 100 07/25/18 01:34 97.8 F 94 15 124/71 99 07/24/18 21:21 16 90 07/24/18 19:47 97.7 F 79 16 120/71 99 07/24/18 15:12 98.2 F 85 18 125/66 97 07/24/18 11:55 98.8 F 94 18 135/61 96 07/24/18 11:13 16 97 Intake and Output 07/24/18 07/25/18 07/25/18 23:59 07:59 15:59 Intake Total 360 / 360 0 / 0 Output Total 0 / 0 Balance 360 / 360 0 / 0 Intake: Oral 360 / 360 0 / 0 Output: Urine 0 / 0 Other: Meal Dinner Percent of Meal Consumed 100% Stool Size Small Stool Consistency formed Stool Color Brown # Voids 1 # Bowel Movements 1 Weight 90.4 kg Blood Glucose* 205 231 Patient Weight 07/25/18 23:59 Weight 90.4 kg - General Appearance General appearance: Present: well-developed, well-nourished EENT: Present: ATNC, hearing intact, vision intact Neck: Present: supple Respiratory: Present: clear Cardiology: Present: edema (+1 pitting edema noted to bilat lower extremities.) , normal S1, normal S2 Dialysis Vascular Access: Arteriovenous Fistula thrill: Yes bruit: Yes Gastrointestinal: Present: normoactive bowel sounds, no tenderness, no guarding Integumentary: Present: no rash, warm and dry Neurologic: Present: alert and oriented x3 Psychiatric: Present: mood/affect appropriate, cooperative - Lab 07/25/18 07:01 07/25/18 07:01 Most recent lab results Calcium 9.1 mg/dL (8.6-10.3) 07/25/18 07:01 Phosphorus 2.7 mg/dL (2.7-4.5) 07/24/18 03:15 Consult Discharge Plan - Plan Referrals: Tristen Quintana MD [Primary Care Provider] -
[2018-07-25] MEDS: Insulin LISPRO 300 UNITS/3 ML VIAL SQ SCH ×4 (10:26→20:28)
[2018-07-25] MEDS: Budesonide/Formoterol 160/4.5 1 PUFF INH IH SCH ×2 (10:35→19:39)
[2018-07-25] MEDS: Metoclopramide 10 MG/10 ML UD.LIQ PO SCH ×3 (12:04→16:15)
[2018-07-25] MEDS: Calcium Acetate 667 MG CAPSULE PO SCH ×3 (12:04→16:14)
[2018-07-25] MEDS: Sucralfate 1 GM TABLET PO SCH ×4 (12:04→20:41)
[2018-07-25] MEDS: Gabapentin 100 MG CAPSULE PO SCH ×3 (12:12→20:41)
[2018-07-25] MEDS: ARIPiprazole 10 MG TABLET PO SCH (12:12)
[2018-07-25] MEDS: Aspirin Enteric Coated 81 MG Tablet PO SCH (12:12)
[2018-07-25] MEDS: Renal Vitamin 1 CAP CAPSULE PO SCH (12:12)
[2018-07-25] MEDS: Lactobacillus 1 EACH CAP.SPRINK PO SCH (12:13)
[2018-07-25] MEDS: Isosorbide MONOnitrate (24 HR) 30 MG TAB.ER.24H PO SCH (12:13)
--- NOTE | 2018-07-25 13:17 | Electrocardiograph Report ---
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
[2018-07-25] MEDS: Gentamicin Oint 15 GM TUBE TP SCH ×2 (16:15→20:41)
[2018-07-25] MEDS: *HR* OxyCODONE/APAP 5/325 TABLET PO PRN (20:41)
[2018-07-25] MEDS: Insulin DETEMIR 100 UNIT/ML X5UNITS SQ SCH (20:41)
[2018-07-25] MEDS ORDERED: COLESTIPOL HCL 1 GM PO SCH (21:00)
--- NOTE | 2018-07-25 23:50 | Internal Med Progress Note ---
Hospitalist Progress Note - Encounter Date of Encounter: 07/25/18 Time of Encounter: 19:00 - Subjective Interval History: SUBJECTIVE: The patient feels pretty good. She has not had any chest pain since admitting her to the hospital floor. She is using supplemental oxygen at 2-3 L/min; her baseline. Denies coughing and wheezing. Denies abdominal pain, nausea and vomiting. The patient was admitted to the hospital after experiencing several hours lasting anterior chest pain with progressing dyspnea. She was recently hospitalized here for treatment of pneumonia/fluid overload. We sent her home on 07/22/18. The patient got hemodialysis after the admission. ADDITIONAL DATA: Her hemoglobin is 8.0; 7.9 yesterday. She has normal WBC and platelet count. She has normal electrolytes. OBJECTIVE: Skin: Free of rash and discoloration. ENMT: Oral/pharyngeal mucosa is normal in appearance. Eyes: Sclera is white. There is no discharge from eyes. Respiratory: Normal breath sounds; no crackles or wheezes. CV: Heart is regular; no gallop or murmur. GI: Abdomen is soft and not tender. There is no palpable mass or visceromegaly. Neuro: There is no focal deficits. ASSESSMENT AND PLAN: Most likely fluid overload in a patient with end-stage renal disease because difficulty breathing and anterior chest pain. She gets hemodialysis on Tuesdays , and Saturdays. She also suffers from chronic diastolic heart failure. We appreciate help from nephrology. Her troponins are normal. There is CAD seems to be stable at this time. She has underlying chronic atrial fibrillation. She is not a candidate for anticoagulation with Coumadin or similar. See notes from cardiology. She was recently diagnosed with pneumonia. We will continue treatment with ertapenem through August 02. Type 2 diabetes mellitus. Under fair control. We will continue diabetic diet, insulin Levemir and when necessary insulin Humalog. Anemia from chronic kidney disease. To be managed by nephrology. Disposition: Her chest x-ray from yesterday continues to show significant pulmonary congestion. It should be repeated tomorrow after hemodialysis. Then, she may be discharged to her care home, if stable. - Exam Vitals: Temp Pulse Resp BP Pulse Ox 98 F 83 18 120/56 100 07/25/18 23:06 07/25/18 23:06 07/25/18 23:06 07/25/18 23:06 07/25/18 23:06 Exam: xx - Assessment and Plan (1) Fluid overload Current Visit: No Status: Resolved (2) ESRD (end stage renal disease) on dialysis Current Visit: Yes Status: Chronic (3) Chronic diastolic heart failure Current Visit: Yes Status: Chronic (4) Chest pain Current Visit: Yes Status: Acute (5) CAD (coronary artery disease) Current Visit: No Status: Acute (6) Atrial fibrillation Current Visit: No Status: Acute (7) Pneumonia Current Visit: Yes Status: Acute (8) Diabetes mellitus Current Visit: No Status: Chronic (9) Anemia Current Visit: No Status: Chronic - Time Spent with Patient Total time spent is greater than 50% in coordination of care (as documented) at patient's floor/unit and/or counseling patient: 25 - 35 minutes Plan of Care Discussed with: patient Internal Medicine: Result - Labs CBC & Chem 7: 07/25/18 07:01 07/25/18 07:01 Labs: Short CBC 07/25/18 Range/Units 07:01 WBC 7.0 (4.3-11.1) K/mcL Hgb 8.0 L (11.5-15.4) g/dL Hct 28.1 L (35.3-44.9) % Plt Count 141 (140-400) K/mcL BMP 07/25/18 07:01 Sodium 134 L Potassium 5.1 Chloride 96 L Carbon Dioxide 33 H BUN 25 H Creatinine 3.30 H Glucose 241 H Calcium 9.1 - ABG Interpretation ABG results: PT/INR, D-dimer PT 15.1 Seconds (9.4-12.1) H 07/23/18 07:18 - Impressions Impressions Chest X-Ray 07/24/18 04:00 IMPRESSION: Stable moderate CHF with cardiomegaly, interstitial pulmonary edema and bilateral pleural effusions. D/ / 07/24/2018 16:36:50 Arley Raman MD / tremaine Interpreting Provider: Arley Raman MD Consult Discharge Plan - Plan Referrals: Tristen Quintana MD [Primary Care Provider] - (1) Fluid overload Qualifiers: Hypervolemia type: other Qualified Code(s): E87.79 - Other fluid overload (4) Chest pain Qualifiers: Chest pain type: other chest pain Qualified Code(s): R07.89 - Other chest pain; R07.8 - Other chest pain (5) CAD (coronary artery disease) Qualifiers: Coronary Disease-Associated Artery/Lesion type: unspecified vessel or lesion type [place] vs. transplanted heart: unspecified whether [place] or transplanted heart Associated angina: without angina Qualified Code(s): I25.10 - Atherosclerotic heart disease of [place] coronary artery without angina pectoris (6) Atrial fibrillation Qualifiers: Atrial fibrillation type: chronic Qualified Code(s): I48.2 - Chronic atrial fibrillation (7) Pneumonia Qualifiers: Pneumonia type: due to unspecified organism Laterality: left Lung location: lower lobe of lung Qualified Code(s): J18.1 - Lobar pneumonia, unspecified organism (8) Diabetes mellitus Qualifiers: Diabetes mellitus type: type 2 Diabetes mellitus prison insulin use: with termite treater use Diabetes mellitus complication status: with hyperglycemia Qualified Code(s): E11.65 - Type 2 diabetes mellitus with hyperglycemia; Z79.4 - termite treater (current) use of insulin; Z79.4 - [facility] (current) use of insulin ; Z79.4 - termite treater (current) use of insulin; Z79.4 - termite treater (current) use of insulin (9) Anemia Qualifiers: Anemia type: due to chronic kidney disease Chronic kidney disease stage: on chronic dialysis Qualified Code(s): N18.6 - End stage renal disease; D63.1 - Anemia in chronic kidney disease; Z99.2 - Dependence on renal dialysis
[2018-07-26 05:16] LABS: Red Cell Distribution Width 18.1 % (11.5-14.5)
[2018-07-26 05:17] LABS: Hematocrit 27.9 % (35.3-44.9); Mean Corpuscular HGB Conc 28.7 g/dL (31.6-35.5); Mean Corpuscular Volume 83.8 fL (83.0-100.0); Mean Platelet Volume 11.9 fL (9.4-12.4); Platelet Count 142 K/mcL (140-400); Red Blood Count 3.33 M/mcL (3.82-4.97)
[2018-07-26 05:26] LABS: Calcium 9.1 mg/dL (8.6-10.3); Potassium 4.5 mEq/L (3.5-5.1)
[2018-07-26] MEDS: *HR* Heparin 5,000 UNIT/ML VIAL SQ SCH ×2 (06:32→12:24)
[2018-07-26] MEDS ORDERED: 0.9 % Sodium Chloride 2,000 ML ONE (06:34)
[2018-07-26] MEDS ORDERED: 0.9 % Sodium Chloride 250 ML IVC PRN (08:18)
[2018-07-26] MEDS ORDERED: 0.9 % Sodium Chloride 1,000 ML PRIME SCH (08:30)
[2018-07-26] MEDS ORDERED: amLODIPine 5 MG TABLET PO SCH (09:00)
--- NOTE | 2018-07-26 10:04 | Nephrology Progress Note ---
Date of Encounter: 07/26/18 Time of Encounter: 10:02 - Assessment and Plan (1) ESRD (end stage renal disease) on dialysis Current Visit: Yes Status: Chronic Chronic ESRD on HD TTS. HD in progress again for today. Strict I/O Avoid nephrotoxins and renal dose. Palliative care consulted yesterday. (2) Chest pain Current Visit: Yes Status: Acute Chest pain free at this time. Per primary. Qualifiers: Qualified Code(s): R07.9 - Chest pain, unspecified (3) Decubital ulcer Current Visit: Yes Status: Acute Wound care consulted. Qualifiers: Pressure injury stage: unstageable Laterality: unspecified laterality Qualified Code(s): L89.300 - Pressure ulcer of unspecified buttock, unstageable (4) Pneumonia Current Visit: Yes Status: Acute Per primary. Qualifiers: Pneumonia type: due to unspecified organism Laterality: left Lung location: lower lobe of lung Qualified Code(s): J18.1 - Lobar pneumonia, unspecified organism (5) Volume overload Current Visit: Yes Status: Acute 1.5 Liter fluid restriction. Qualifiers: Hypervolemia type: unspecified Qualified Code(s): E87.70 - Fluid overload, unspecified Subjective Principal diagnosis: HERNÁN/CP Interval history: Pt seen and examined during HD, tolerating well. Admits to SOB and fatigue. Denies nausea/vomiting. Objective - Vital Signs Vital signs: Vital Signs Temp Pulse Resp BP Pulse Ox 07/26/18 06:33 97.9 F 79 18 127/75 99 07/26/18 02:59 98 F 85 18 133/75 94 07/25/18 23:06 98 F 83 18 120/56 100 07/25/18 19:47 98.6 F 72 18 124/64 100 07/25/18 19:39 18 98 07/25/18 15:21 98.5 F 105 18 133/71 97 07/25/18 12:03 97.6 F 91 16 121/53 100 07/25/18 11:40 98 F 18 122/64 07/25/18 11:15 90/52 07/25/18 11:00 118/95 07/25/18 10:45 115/64 07/25/18 10:30 122/66 07/25/18 10:15 133/71 Intake and Output 07/25/18 07/26/18 07/26/18 23:59 07:59 15:59 Intake Total 100 / 100 Balance 100 / 100 Intake: IV Fluids 100 / 100 Other: Weight 170 kg Blood Glucose* 180 141 Patient Weight 07/26/18 23:59 Weight 170 kg - General Appearance General appearance: Present: well-developed, well-nourished EENT: Present: ATNC, hearing intact, vision intact Neck: Present: supple Respiratory: Present: clear, rhonchi Cardiology: Present: edema (+2 pitting edema bilat lower extremities.), normal S1, normal S2 Dialysis Vascular Access: Arteriovenous Fistula thrill: Yes bruit: Yes Gastrointestinal: Present: normoactive bowel sounds, no tenderness, no guarding Integumentary: Present: no rash, warm and dry Neurologic: Present: alert and oriented x3 Psychiatric: Present: mood/affect appropriate, cooperative - Lab 07/26/18 04:30 07/26/18 04:30 Most recent lab results Calcium 9.1 mg/dL (8.6-10.3) 07/26/18 04:30 Phosphorus 2.7 mg/dL (2.7-4.5) 07/24/18 03:15 Consult Discharge Plan - Plan Referrals: Tristen Quintana MD [Primary Care Provider] -
[2018-07-26] MEDS: Budesonide/Formoterol 160/4.5 1 PUFF INH IH SCH (10:43)
[2018-07-26] MEDS: Metoclopramide 10 MG/10 ML UD.LIQ PO SCH ×2 (10:59→11:04)
[2018-07-26] MEDS: Sucralfate 1 GM TABLET PO SCH ×2 (10:59→11:06)
[2018-07-26] MEDS: Insulin LISPRO 300 UNITS/3 ML VIAL SQ SCH ×2 (10:59→12:23)
[2018-07-26] MEDS: Isosorbide MONOnitrate (24 HR) 30 MG TAB.ER.24H PO SCH (11:05)
[2018-07-26] MEDS: Lactobacillus 1 EACH CAP.SPRINK PO SCH (11:05)
[2018-07-26] MEDS: ARIPiprazole 10 MG TABLET PO SCH (11:05)
[2018-07-26] MEDS: Renal Vitamin 1 CAP CAPSULE PO SCH (11:05)
[2018-07-26] MEDS: Aspirin Enteric Coated 81 MG Tablet PO SCH (11:05)
[2018-07-26] MEDS: Gabapentin 100 MG CAPSULE PO SCH (11:05)
[2018-07-26] MEDS: Gentamicin Oint 15 GM TUBE TP SCH (11:06)
[2018-07-26] MEDS: Calcium Acetate 667 MG CAPSULE PO SCH ×2 (11:06→12:21)
--- NOTE | 2018-07-26 11:09 | Palliative - Consult Note ---
<Alicia Gibbons N - Last Filed: 07/26/18 13:38> Date of Encounter: 07/26/18 Time of Encounter: 11:09 - Assessment and Plan (1) Goals of care, counseling/discussion Status: Acute Assessment and plan: Patient was evaluated by palliative care team for goals of care. She has an extensive medical history with frequent hospital admissions. Per nephrology consultation this visit, patient may not be able to continue tolerating chronic dialysis in the near future. Patient was educated on hospice qualification, and informed that in her case, hospice admission would be appropriate once she had decided to forgo further dialysis. At this time, patient states that she is not ready to discontinue dialysis treatments, but does voice that she thinks it would be appropriate if she should reach the point that she is no longer able to communicate or if she became mentally incapacitated. She was instructed to inform her family of her wishes in order to make it easier for them to carry them out in the future if needed. She confirmed that she does not want to undergo cardiac resuscitation or intubation. (2) Pneumonia Status: Acute Assessment and plan: Patient was discharged from the hospitial on 07/22/2018 after itintial treatment of pneumonia, but returned to the ED within hours of leaving. Sputum cultures from her last admission demosntrated presence of E.coli ESBL and Proteus mirabilis. Patient has continued to have productive-sounding cough. Per primary team, patient is continuing to receive ertapenem, with treatment planned to be continued until 08/02/2018. Qualifiers: Pneumonia type: due to unspecified organism Laterality: unspecified laterality Lung location: unspecified part of lung Qualified Code(s): J18.9 - Pneumonia, unspecified organism (3) ESRD (end stage renal disease) on dialysis Status: Chronic Assessment and plan: Patient normally undergoes hemodialysis on TTS. She was undergoing hemodialysis during conversation today, and appears to be tolerating it well. Plan to continue per nephrology recommendations. (4) Chronic diastolic heart failure Status: Chronic Assessment and plan: Patient appears fluid-overloaded on exam today. She is reportedly noncompliant with fluid restrictions. Plan for reinforcement of the importance of appropriate fluid restriction and fluid removal by dialysis per nephrology recommendations. Palliative-CN HPI - Data of Consult Consult date: 07/26/18 Requesting Physician: Papito Stoll MD Primary Care Provider: Tristen Quintana MD - Consult Narrative Palliative Care/Comfort Measures: Palliative care Reason for consult: Goals of care History of present illness: Ms. Riley is a 63 year old female with a history of CAD, CHF, type 2 diabetes, COPD, atrial fibrillation, and ESRD on hemodialysis. She was discharged from the hospital on 07/22/2018 after receiving treatment for fluid overload and pneumonia; however, she returned to the ED complaining of pressure-like pain less than 24 hours later, which had resolved. She was admitted in order to rule- out ACS. Palliative care consult was placed for assistance in determining patient's goals of care in light of her many repeated rehospitalizations over the last several months. At the time of discussion today, patient was undergoing hemodialysis. The dialysis nurse reported that the patient had expressed some questions regarding whether or not dialysis was compatible with hospice care. The patient denies any acute complaints or concerns at this time and appears to be comfortably while receiving her treatment. CC: Papito Stoll MD - Time Spent with Patient Time: Total time spent is greater than 50% in coordination of care (as documented) at patient's floor/unit and/or counseling patient: Past Med Surg Social Fam HX - Past Medical History Medical history: atrial fibrillation, CHF, COPD, coronary artery disease, diabetes, GI bleed, hyperlipidemia, hypertension, myocardial infarction, peripheral artery disease, renal disease, other Additional medical history: AV fistula for dialysis ++ Psychiatric history: anxiety, depression, schizophrenia, previous psychiatric hospitalization - Past Surgical History Surgical History: angioplasty/stent, appendectomy, cholecystectomy, coronary bypass (CABG), hysterectomy, knee replacement, other, IVC filter Additional surgical history: left arm fistulogram with covered stent placement left basilic vein 2016. kidney stones 1996. double Bypass 1998. stents x5 unsure date. right wrist 2017 - Social History Smoking Status: Current every day smoker Smokeless Tobacco Status: No Alcohol use: none Drug use: none - Family History Father Family Member Ethnicity: Non- Living Status: Hx Family Cardiac Disorders: Yes Hx Family Respiratory Disorders: Yes Hx Family Cancer: Yes (Polycythemia) Hx Family Endocrine Disorder: Yes (DM) Mother Family Member Ethnicity: Non- Living Status: Still Living Hx Family Cardiac Disorders: Yes Hx Family Respiratory Disorders: Yes (asthma, COPD) Brother Adopted: No Family Member Ethnicity: Non- Living Status: Still Living Hx Family Cardiac Disorders: No Hx Family Respiratory Disorders: No Hx Family Cancer: No Hx Family GI Disorders: No Hx Family Endocrine Disorder: No Hx Family Neuromuscular Disorders: No Hx Family Neurologic Disorders: No Hx Family HEENT Disorders: No Hx Family Autoimmune Disorders: No Sister Adopted: No Family Member Ethnicity: Non- Living Status: Still Living Hx Family Cardiac Disorders: Yes Hx Family Respiratory Disorders: No Hx Family Cancer: No Hx Family GI Disorders: No Hx Family Endocrine Disorder: Yes Hx Family Neuromuscular Disorders: No Hx Family Neurologic Disorders: No Hx Family HEENT Disorders: No Hx Family Autoimmune Disorders: No Medications and Allergies Colestipol HCl [Colestid] 1 gm PO BID 06/12/15 [History] Calcium Acetate [Phos-LO] 1,334 mg PO TIDWM 09/06/16 [History] ARIPiprazole [Abilify] 10 mg PO DAILY 09/13/17 [History] Aspirin Enteric Coated [Aspirin EC] 81 mg PO DAILY 09/13/17 [History] Budesonide/Formoterol 160/4.5 [Symbicort 160/4.5] 2 puff IH BIDR 09/13/17 [ History] Cholecalciferol (Vitamin D3) [Vitamin D3] 50,000 unit PO TH 09/13/17 [History] Sevelamer [Renvela] 800 mg PO DAILY 09/13/17 [History] Albuterol Neb [AccuNeb] 0.63 mg IH Q6H PRN 10/18/17 [History] amLODIPine [Norvasc] 5 mg PO DAILY 12/30/17 [History] Clopidogrel [Plavix] 75 mg PO DAILY 02/03/18 [History] Rosuvastatin Calcium [Crestor] 20 mg PO DAILY 02/27/18 [History] Amitriptyline [Elavil] 50 mg PO HS tablet 03/24/18 [Rx] Metoclopramide [Reglan] 5 mg PO TIDAC 3 Days #9 ud.liq 04/08/18 [Rx] Sucralfate [Carafate] 1 gm PO QIDAC 3 Days #12 tablet 04/08/18 [Rx] Renal Vitamin [Renal Caps Softgel] 1 mg PO DAILY capsule 04/17/18 [Rx] Carvedilol 12.5 mg PO BID 04/28/18 [History] Darbepoetin [Aranesp] 60 mcg SQ TH 04/28/18 [History] Insulin DETEMIR [Levemir] 28 unit SQ HS 04/28/18 [History] Insulin LISPRO [HumaLOG] 2 - 10 units SQ TIDWM 04/28/18 [History] Lactobacillus Acidophilus/Fos [Acidophilus Probiotic Tablet] 1 tab PO DAILY [History] Omeprazole [PriLOSEC] 20 mg PO DAILY 04/28/18 [History] Ondansetron HCl [Zofran] 4 mg PO Q12H PRN 04/28/18 [History] Gentamicin Oint [Garamycin] 1 appl TP BID #1 tube 06/17/18 [Rx] Isosorbide MONOnitrate (24 HR) [Imdur] 30 mg PO DAILY #30 tab.er.24h 07/04/18 [ Rx] Benzonatate [Tessalon] 200 mg PO TID PRN 10 Days #30 capsule 07/22/18 [Rx] Gabapentin [Neurontin] 100 mg PO TID 4 Days #12 capsule 07/22/18 [Rx] OxyCODONE/APAP 5/325 [Percocet 5/325 MG] 1 each PO Q8HR PRN 2 Days #6 tablet 09/27 [Rx] Ertapenem [INVanz] 500 mg IVPB DAILY #7 vial 07/26/18 [Rx] 3 Allergy/AdvReac Type Severity Reaction Status Date / Time piperacillin [From Zosyn] Allergy Anaphylaxis Verified 07/05/18 10:03 tazobactam [From Zosyn] Allergy Anaphylaxis Verified 07/05/18 10:03 Palliative Care-Exam - Constitutional Vitals: Temp Pulse Resp BP Pulse Ox 97.9 F 79 18 127/75 99 07/26/18 06:33 07/26/18 06:33 07/26/18 06:33 07/26/18 06:33 07/26/18 06:33 Exam: GENERAL: Pleasant, ill-appearing female undergoing hemodialysis. She does not appear to be in acute distress. Anasarca present. HEENT: Atraumatic and normocephalic. CARDIOVASCULAR: Regular rate and rhythm. S1 and S2 present. No murmurs, gallops , or rubs. LUNGS: Coarse and diminished breath sounds bilaterally, particularly during exhalation. GASTROINTESTINAL: Bowel sounds present x 4 quadrants. Skin shows bruising secondary to heparin injections. Patient is tender to palpation in LLQ due to subcutaneous ecchymosis. EXTREMITIES: Skin changes in bilateral lower extremities consistent with chronic venous stasis. 1+ pitting edema present bilaterally. NEUROLOGIC: Alert and oriented x 3. Patient answers questions appropriately and is cooperative with exam. Internal Medicine - CN: Reslt - Labs CBC & Chem 7: 07/26/18 04:30 07/26/18 04:30 Labs: Short CBC 07/26/18 Range/Units 04:30 WBC 5.5 (4.3-11.1) K/mcL Hgb 8.0 L (11.5-15.4) g/dL Hct 27.9 L (35.3-44.9) % Plt Count 142 (140-400) K/mcL BMP 07/26/18 04:30 Sodium 135 L Potassium 4.5 Chloride 97 L Carbon Dioxide 32 H BUN 21 Creatinine 2.83 H Glucose 141 H Calcium 9.1 - ABG Interpretation ABG results: PT/INR, D-dimer PT 15.1 Seconds (9.4-12.1) H 07/23/18 07:18 Consult Discharge Plan - Plan Instructions: Heart Failure (DC), Hemodialysis (DC) Referrals: Tristen Quintana MD [Primary Care Provider] - (Patient is going back to [facility]CF) Prescriptions: Ertapenem [INVanz] 500 mg IVPB DAILY #7 vial Palliative Quality Code Status: 07/23/18 09:41 CODE [Resuscitation Status: Active] [RES] Routine Comment: Resuscitation Status: [id number] <Larissa Vaughan - Last Filed: 07/26/18 21:46> Date of Encounter: 07/26/18 Palliative-CN HPI - Data of Consult Requesting Physician: Papito Stoll MD Primary Care Provider: Tristen Quintana MD - Consult Narrative History of present illness: Ms. Riley is a 63 year old female CC: Papito Stoll MD - Time Spent with Patient Time: Total time spent is greater than 50% face to face with patient in coordination of care (as documented) at patient's floor/unit and/or counseling patient: greater than 70 minutes Palliative Care-Exam - Constitutional Vitals: Temp Pulse Resp BP Pulse Ox 97.6 F 92 16 153/75 100 07/26/18 11:32 07/26/18 11:32 07/26/18 11:32 07/26/18 11:32 07/26/18 11:32 Internal Medicine - CN: Reslt - Labs CBC & Chem 7: 07/26/18 04:30 07/26/18 04:30 Labs: Short CBC 07/26/18 Range/Units 04:30 WBC 5.5 (4.3-11.1) K/mcL Hgb 8.0 L (11.5-15.4) g/dL Hct 27.9 L (35.3-44.9) % Plt Count 142 (140-400) K/mcL BMP 07/26/18 04:30 Sodium 135 L Potassium 4.5 Chloride 97 L Carbon Dioxide 32 H BUN 21 Creatinine 2.83 H Glucose 141 H Calcium 9.1 - ABG Interpretation ABG results: PT/INR, D-dimer PT 15.1 Seconds (9.4-12.1) H 07/23/18 07:18 - Attending Attestation I performed a history and physical examination of the patient and discussed his management with the resident. I reviewed the residents note and agree with the documented findings and plan of care. Pt was AAO x3 at the time of exam. Discussed current medical condition, trajectory of illness and poor prognosis. Patient is understanding that her health is poor and that she will soon be unable to tolerate HD. However she states she is not ready to and hence would like to continue dialysis for as long as possible. Educated Pt to discuss with her family about when to stop treatment. Pt remains DNRCC/DNI. Palliative Quality Palliative Quality: Screen for Code Status: Yes, Screen for Goals of Care: Yes, Screen for Pain: Yes, If Pain Regimen Started, Initiate Bowel Regimen: NA, Screen for Nausea/Vomitting: Yes Code Status: 07/23/18 09:41 CODE [Resuscitation Status: Active] [RES] Routine Comment: Resuscitation Status: [id number]
--- NOTE | 2018-07-26 11:31 | Discharge Summary ---
- NOTES TO OUTPATIENT PROVIDER Notes to Outpatient Provider: Ms Riley was placed on observation for SOB during HD. No significant findings on admission except for pulm edema, she has received several HD sessions and this mrn believed she felt better and is ready to go back to the SNF. Her home meds are unchanged and she is to take Etarpenem 500mg IV daily through 08/02 for MDRO PNA. Give antibiotics after HD on HD days Orders not resulted at time of discharge: Pending orders 07/27/18 04:00 Chem 7 [Basic Metabolic Panel] AM 0400 Complete Blood Count w/o Diff [HEME] AM 0400 07/28/18 04:00 Chem 7 [Basic Metabolic Panel] AM 0400 Complete Blood Count w/o Diff [HEME] AM 0400 07/29/18 04:00 Chem 7 [Basic Metabolic Panel] AM 0400 Complete Blood Count w/o Diff [HEME] AM 0400 07/30/18 04:00 Chem 7 [Basic Metabolic Panel] AM 0400 Complete Blood Count w/o Diff [HEME] AM 0400 07/31/18 04:00 Chem 7 [Basic Metabolic Panel] AM 0400 Complete Blood Count w/o Diff [HEME] AM 0400 08/01/18 04:00 Chem 7 [Basic Metabolic Panel] AM 0400 Complete Blood Count w/o Diff [HEME] AM 0400 08/02/18 04:00 Chem 7 [Basic Metabolic Panel] AM 0400 08/03/18 04:00 Chem 7 [Basic Metabolic Panel] AM 0400 Date of Encounter: 07/26/18 Time of Encounter: 11:29 - Discharge Diagnosis (1) Anemia Priority: Secondary Status: Chronic Qualifiers: Anemia type: due to chronic kidney disease Chronic kidney disease stage: on chronic dialysis Qualified Code(s): N18.6 - End stage renal disease; D63.1 - Anemia in chronic kidney disease; Z99.2 - Dependence on renal dialysis (2) Fluid overload Priority: Primary Status: Resolved Qualifiers: Hypervolemia type: other Qualified Code(s): E87.79 - Other fluid overload (3) CAD (coronary artery disease) Priority: Secondary Status: Chronic Qualifiers: Coronary Disease-Associated Artery/Lesion type: unspecified vessel or lesion type [place] vs. transplanted heart: unspecified whether al[place]q or transplanted heart Associated angina: without angina Qualified Code(s): I25.10 - Atherosclerotic heart disease of alut[place]q coronary artery without angina pectoris (4) Diabetes mellitus Priority: Secondary Status: Chronic Qualifiers: Diabetes mellitus type: type 2 Diabetes mellitus skilled nursing insulin use: with skilled nursing use Diabetes mellitus complication status: with hyperglycemia Qualified Code(s): E11.65 - Type 2 diabetes mellitus with hyperglycemia; Z79.4 - nursing home (current) use of insulin; Z79.4 - nursing home (current) use of insulin; 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; Z79.4 - nursing home (current ) use of insulin (5) Atrial fibrillation Priority: Secondary Status: Chronic Qualifiers: Atrial fibrillation type: chronic Qualified Code(s): I48.2 - Chronic atrial fibrillation (6) ESRD (end stage renal disease) on dialysis Priority: Secondary Status: Chronic (7) Chest pain Priority: Primary Status: Resolved Qualifiers: Chest pain type: other chest pain Qualified Code(s): R07.89 - Other chest pain; R07.8 - Other chest pain (8) Pneumonia Priority: Primary Status: Acute Qualifiers: Pneumonia type: due to Escherichia coli Laterality: left Lung location: lower lobe of lung Qualified Code(s): J15.5 - Pneumonia due to Escherichia coli (9) Chronic diastolic heart failure Priority: Secondary Status: Chronic Hospital course: Ms. Riley is a 63 year old female with CAD S/P stent in 12/2017, HFpEF, COPD on homeO2 , IDDM 2, dyspepsia, historically rate controlled atrial fibrillation not on OAC ( vaginal bleed/ anemia) , and ESRD on hemodialysis (, , wed) and recent admission for fluid overload and PNA discharged on 07/22 presented to the ED with complaint of chest pain. She reports that she developed shortness of breath in the early hours of the morning and soon after developed a uncomfortable feeling in the middle of her chest which has resolved by itself after 30 minutes. In the ED chest x-ray was done which showed mildly enlarged cardiac silhouette with prominence of the common area vasculature. With a small left pleural effusion with left basilar opacification. Troponin was negative. She was endorsed for admission for chest pain rule out ACS and fluid overload. Nephrology was consulted by the ED physician. She has since being resumed on her home meds, with resolution of sob and no recurrence of Chest pain. She has had exensive work up for CAD with normal troponin (on 3 occasions). The patient has nonconclusive for coronary artery diseases froom results of cardiac catheterization from December of this year. Her last echocardiogram was done in March of this year. It showed ejection fraction of 60%. There was no abnormalities detected. The treatment for her CAD/A. fib has been optimized. Cardiology is consulted. The patient is not a candidate for anticoagulation. She will continue hemodialysis on Tuesdays, and Saturdays She was seen and examined during HD this a.m, and requested to be discharged home, stating she is no longer having SOB or chest pain She is on Etarpenem for MDRO E.coli PNA and recommended to continue same through 08/02 Continue wound dressing of chronic leg and sacral wounds Follow up with PCP and Nephrology Discharge discussed with: patient, nurse - Time Spent with Patient Total time spent providing and/or coordinating discharge services: Greater than 30 minutes - Discharge Medications Prescriptions: Ertapenem [INVanz] 500 mg IVPB DAILY #7 vial Home Medications: Colestipol HCl [Colestid] 1 gm PO BID 06/12/15 [History] Calcium Acetate [Phos-LO] 1,334 mg PO TIDWM 09/06/16 [History] ARIPiprazole [Abilify] 10 mg PO DAILY 09/13/17 [History] Aspirin Enteric Coated [Aspirin EC] 81 mg PO DAILY 09/13/17 [History] Budesonide/Formoterol 160/4.5 [Symbicort 160/4.5] 2 puff IH BIDR 09/13/17 [ History] Cholecalciferol (Vitamin D3) [Vitamin D3] 50,000 unit PO TH 09/13/17 [History] Sevelamer [Renvela] 800 mg PO DAILY 09/13/17 [History] Albuterol Neb [AccuNeb] 0.63 mg IH Q6H PRN 10/18/17 [History] amLODIPine [Norvasc] 5 mg PO DAILY 12/30/17 [History] Clopidogrel [Plavix] 75 mg PO DAILY 02/03/18 [History] Rosuvastatin Calcium [Crestor] 20 mg PO DAILY 02/27/18 [History] Amitriptyline [Elavil] 50 mg PO HS tablet 03/24/18 [Rx] Metoclopramide [Reglan] 5 mg PO TIDAC 3 Days #9 ud.liq 04/08/18 [Rx] Sucralfate [Carafate] 1 gm PO QIDAC 3 Days #12 tablet 04/08/18 [Rx] Renal Vitamin [Renal Caps Softgel] 1 mg PO DAILY capsule 04/17/18 [Rx] Carvedilol 12.5 mg PO BID 04/28/18 [History] Darbepoetin [Aranesp] 60 mcg SQ TH 04/28/18 [History] Insulin DETEMIR [Levemir] 28 unit SQ HS 04/28/18 [History] Insulin LISPRO [HumaLOG] 2 - 10 units SQ TIDWM 04/28/18 [History] Lactobacillus Acidophilus/Fos [Acidophilus Probiotic Tablet] 1 tab PO DAILY [History] Omeprazole [PriLOSEC] 20 mg PO DAILY 04/28/18 [History] Ondansetron HCl [Zofran] 4 mg PO Q12H PRN 04/28/18 [History] Gentamicin Oint [Garamycin] 1 appl TP BID #1 tube 06/17/18 [Rx] Isosorbide MONOnitrate (24 HR) [Imdur] 30 mg PO DAILY #30 tab.er.24h 07/04/18 [ Rx] Benzonatate [Tessalon] 200 mg PO TID PRN 10 Days #30 capsule 07/22/18 [Rx] Gabapentin [Neurontin] 100 mg PO TID 4 Days #12 capsule 07/22/18 [Rx] OxyCODONE/APAP 5/325 [Percocet 5/325 MG] 1 each PO Q8HR PRN 2 Days #6 tablet 09/27 [Rx] Ertapenem [INVanz] 500 mg IVPB DAILY #7 vial 07/26/18 [Rx] Allergies/Adverse Reactions: 3 Allergy/AdvReac Type Severity Reaction Status Date / Time piperacillin [From Zosyn] Allergy Anaphylaxis Verified 07/05/18 10:03 tazobactam [From Zosyn] Allergy Anaphylaxis Verified 07/05/18 10:03 Date of admission: 07/23/18 08:58 Primary care physician: Tristen Quintana MD Consults: 07/23/18 09:30 Consult to Dialysis [CONS] ONCE 07/23/18 10:06 Consult to Case Management [CONS] Routine Comment: Consult to Nutrition [CONS] Routine Comment: Consulting Provider: NUTRITION Reason for Dietary Consult: PO Supplementation Consult to Physical Therapy [CONS] Routine Comment: Evaluate, develop and implement POC Reason for Consult: dispostion Does patient have active BEDREST order?: No Is patient medically & hemodynamically stable?: Yes Patient assessed for mobility or mobilized this visit?: Yes 07/25/18 06:15 Consult to Dialysis [CONS] ONCE 07/25/18 07:23 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 [CONS] Routine Reason for SW Consult: rtn wmp 07/25/18 09:51 Consult to Palliative Care [CONS] Routine Comment: Consulting Provider: Palliative Care Olivia Reason for Consult: goals of care Time Notified: 09:55 Call Completed: Yes 07/26/18 08:30 Consult to Dialysis [CONS] ONCE Discharging clinician: Papiot Stoll Anticipated date of discharge: 07/26/18 - Constitutional Vitals: Temp Pulse Resp BP Pulse Ox 97.9 F 79 18 127/75 99 07/26/18 06:33 07/26/18 06:33 07/26/18 06:33 07/26/18 06:33 07/26/18 06:33 Exam: General: Patient is alert, oriented, no acute distress, morbidly obese, speaks in full sentences Head: atraumatic, normocephalic, Eye: normal appearance, PERRL, no scleral icterus, no conjunctival injection ENT: mucous membranes moist, normal external ear exam Neck: normal inspection, trachea midline, full ROM, no carotid bruits Chest: normal inspection, symmetric chest rise, sternotomy scar Respiratory: Decreased breath sounds bilaterally, no crackles, no wheezes Cardiovascular: distant heart sounds secondary to body habitus irregular . s1 and s2 No clicks, rubs, gallops, or murmurs. Abdomen: Bowel sounds present normoactive x-4 quadrants. Abdomen is soft, nondistended. no Epigastric tenderness. No guarding or rebound. No organomegaly noted, obese Skin: warm, dry, intact. stage 3 sacral ulcer, erythema of bilateral lower extremities up to knee, warm to touch, both legs in wound dressing Neuro: Alert and oriented X3. No focal deficits Psych: Patient's affect is normal - Patient Status Disposition: Transfer SNF Condition: Fair Functional capacity at discharge: bed bound Overall status at discharge: patient is progressing back to baseline - Discharge Instructions Follow Up With: Tristen Quintana MD [Primary Care Provider] - - Diet and Activity Activity: resume usual activities as tolerated, wear oxygen at all times Diet: diabetic diet, low fat, low cholesterol, low salt diet
[2018-07-26 11:42] VITALS: BP 153/75
--- NOTE | 2018-07-26 11:44 | Physician Discharge Referral ---
ExtendedCare Referral Info Transfer To: SNF/ECF Provider in Charge: Nubia Stoll Provider in Charge after Transfer: PCP Institutional Level of Care: Skilled - Diagnosis (1) Anemia Priority: Secondary Status: Chronic (2) Fluid overload Priority: Primary Status: Resolved (3) CAD (coronary artery disease) Priority: Secondary Status: Chronic (4) Diabetes mellitus Priority: Secondary Status: Chronic (5) Atrial fibrillation Priority: Secondary Status: Chronic (6) ESRD (end stage renal disease) on dialysis Priority: Secondary Status: Chronic (7) Chest pain Priority: Secondary Status: Resolved (8) Pneumonia Priority: Secondary Status: Acute (9) Chronic diastolic heart failure Priority: Secondary Status: Chronic Prognosis: Fair Aware of Diagnosis: Patient Aware of Prognosis: Patient - Transfer Medications Prescriptions: Ertapenem [INVanz] 500 mg IVPB DAILY #7 vial Home Medications: Colestipol HCl [Colestid] 1 gm PO BID 06/12/15 [History] Calcium Acetate [Phos-LO] 1,334 mg PO TIDWM 09/06/16 [History] ARIPiprazole [Abilify] 10 mg PO DAILY 09/13/17 [History] Aspirin Enteric Coated [Aspirin EC] 81 mg PO DAILY 09/13/17 [History] Budesonide/Formoterol 160/4.5 [Symbicort 160/4.5] 2 puff IH BIDR 09/13/17 [ History] Cholecalciferol (Vitamin D3) [Vitamin D3] 50,000 unit PO TH 09/13/17 [History] Sevelamer [Renvela] 800 mg PO DAILY 09/13/17 [History] Albuterol Neb [AccuNeb] 0.63 mg IH Q6H PRN 10/18/17 [History] amLODIPine [Norvasc] 5 mg PO DAILY 12/30/17 [History] Clopidogrel [Plavix] 75 mg PO DAILY 02/03/18 [History] Rosuvastatin Calcium [Crestor] 20 mg PO DAILY 02/27/18 [History] Amitriptyline [Elavil] 50 mg PO HS tablet 03/24/18 [Rx] Metoclopramide [Reglan] 5 mg PO TIDAC 3 Days #9 ud.liq 04/08/18 [Rx] Sucralfate [Carafate] 1 gm PO QIDAC 3 Days #12 tablet 04/08/18 [Rx] Renal Vitamin [Renal Caps Softgel] 1 mg PO DAILY capsule 04/17/18 [Rx] Carvedilol 12.5 mg PO BID 04/28/18 [History] Darbepoetin [Aranesp] 60 mcg SQ TH 04/28/18 [History] Insulin DETEMIR [Levemir] 28 unit SQ HS 04/28/18 [History] Insulin LISPRO [HumaLOG] 2 - 10 units SQ TIDWM 04/28/18 [History] Lactobacillus Acidophilus/Fos [Acidophilus Probiotic Tablet] 1 tab PO DAILY [History] Omeprazole [PriLOSEC] 20 mg PO DAILY 04/28/18 [History] Ondansetron HCl [Zofran] 4 mg PO Q12H PRN 04/28/18 [History] Gentamicin Oint [Garamycin] 1 appl TP BID #1 tube 06/17/18 [Rx] Isosorbide MONOnitrate (24 HR) [Imdur] 30 mg PO DAILY #30 tab.er.24h 07/04/18 [ Rx] Benzonatate [Tessalon] 200 mg PO TID PRN 10 Days #30 capsule 07/22/18 [Rx] Gabapentin [Neurontin] 100 mg PO TID 4 Days #12 capsule 07/22/18 [Rx] OxyCODONE/APAP 5/325 [Percocet 5/325 MG] 1 each PO Q8HR PRN 2 Days #6 tablet 09/27 [Rx] Ertapenem [INVanz] 500 mg IVPB DAILY #7 vial 07/26/18 [Rx] Allergies/Adverse Reactions: 3 Allergy/AdvReac Type Severity Reaction Status Date / Time piperacillin [From Zosyn] Allergy Anaphylaxis Verified 07/05/18 10:03 tazobactam [From Zosyn] Allergy Anaphylaxis Verified 07/05/18 10:03 - Respiratory Orders Oxygen / L per min Smoking Cessation: Smoking cessation has been advised. For more information, call the [employer] Tobacco Quit Line at 2-396-KSJL-NOW. - Advance Directives Code Status: DNR-Arrest/Don't Intubate - Mobility Orders Ambulate - Rehabiliation Orders Rehab Potential: Poor Rehab Orders: Evaluation for Physical Therapy, Evaluation for Occupational Therapy - Treatments List/Other: Wound care as previously recommended - Diet Orders Renal, Cardiac CERTIFICATION: I certify that the transfer of the above named patient to an Extended Care Facility is necessary for the continuing treatment of the diagnosis listed. The above information is true and accurate reflection of patient's current condition. Confidential - Redisclosure prohibited without a patient's written consent.
[2018-07-28] MEDS ORDERED: Cholecalciferol (D-3) 1,000 UNIT TABLET PO SCH (09:00)
== END 2018-07-26 14:15 ==
LOC: EMEROOARM 07:14 → 2ANU 07:14 → SUATTDRO 08:58 → 2ANU 10:07
PROVIDERS: ADMIT Internal Medicine; ATTEND Internal Medicine

== ENCOUNTER 2018-08-13 00:21 | Inpatient (IN) ==
--- NOTE | 2018-08-13 01:03 | Emergency Department Note ---
Disposition Clinical Impression: Pulmonary edema, ESRD (end stage renal disease), Fluid overload Disposition: Admitted As Inpatient Condition: Good Referrals: NONE,PCP [Primary Care Provider] - Forms: ED Satisfaction Letter General Adult HPI - General Chief complaint: ED Shortness of Breath/Dyspnea Stated complaint: SOB Time Seen by Provider: 08/13/18 00:22 Source: patient, EMS Mode of arrival: EMS Limitations: physical limitation, other Nursing Notes Reviewed: Yes Vital Signs Reviewed: Yes - History of Present Illness HPI Narrative: Lynnette is a 63-year-old female from a [place] [facility] care facility with a history of end-stage renal disease on hemodialysis every Wednesday, , Wednesday through a fistula, CHF, diabetes, CAD, COPD, hypertension, multiple wounds, venous stasis wounds, chronic atrial fibrillation who presents to the emergency department for shortness of breath. But he states sometime in the last 48 hours she felt like she was developing pneumonia. She went to dialysis morning but she only took 3 of her 4 hours, she stated she just did not want to complete the last hour she did not feel good. She complains of a dry cough but feeling "rattling". She denies fevers, chills, wheezing, chest pain, abdominal pain, nausea, vomiting, cuts patient, diarrhea. Onset (ago): day(s) Consistency: constant Improves with: nothing Worsens with: nothing - Related Data Home Medications Medication Instructions Recorded Confirmed Colestipol HCl [Colestid] 1 gm PO BID 06/12/15 07/25/18 Calcium Acetate [Phos-LO] 1,334 mg PO TIDWM 09/06/16 07/25/18 ARIPiprazole [Abilify] 10 mg PO DAILY 09/13/17 07/25/18 Aspirin Enteric Coated [Aspirin EC] 81 mg PO DAILY 09/13/17 07/25/18 Budesonide/Formoterol 160/4.5 2 puff IH BIDR 09/13/17 07/25/18 [Symbicort 160/4.5] Cholecalciferol (Vitamin D3) 50,000 unit PO TH 09/13/17 07/25/18 [Vitamin D3] Sevelamer [Renvela] 800 mg PO DAILY 09/13/17 07/25/18 Albuterol Neb [AccuNeb] 0.63 mg IH Q6H PRN 10/18/17 07/25/18 amLODIPine [Norvasc] 5 mg PO DAILY 12/30/17 07/25/18 Clopidogrel [Plavix] 75 mg PO DAILY 02/03/18 07/25/18 Rosuvastatin Calcium [Crestor] 20 mg PO DAILY 02/27/18 07/25/18 Carvedilol 12.5 mg PO BID 04/28/18 07/25/18 Darbepoetin [Aranesp] 60 mcg SQ TH 04/28/18 07/25/18 Insulin DETEMIR [Levemir] 28 unit SQ HS 04/28/18 07/25/18 Insulin LISPRO [HumaLOG] 2 - 10 units SQ TIDWM 04/28/18 07/25/18 Lactobacillus Acidophilus/Fos 1 tab PO DAILY 04/28/18 07/25/18 [Acidophilus Probiotic Tablet] Omeprazole [PriLOSEC] 20 mg PO DAILY 04/28/18 07/25/18 Ondansetron HCl [Zofran] 4 mg PO Q12H PRN 04/28/18 07/25/18 Previous Rx's Medication Instructions Recorded Amitriptyline [Elavil] 50 mg PO HS tablet 03/24/18 Metoclopramide [Reglan] 5 mg PO TIDAC 3 Days #9 ud.liq 04/08/18 Sucralfate [Carafate] 1 gm PO QIDAC 3 Days #12 tablet 04/08/18 Renal Vitamin [Renal Caps Softgel] 1 mg PO DAILY capsule 04/17/18 Gentamicin Oint [Garamycin] 1 appl TP BID #1 tube 06/17/18 Isosorbide MONOnitrate (24 HR) 30 mg PO DAILY #30 tab.er.24h 07/04/18 [Imdur] Benzonatate [Tessalon] 200 mg PO TID PRN 10 Days #30 07/22/18 capsule Gabapentin [Neurontin] 100 mg PO TID 4 Days #12 capsule 07/22/18 OxyCODONE/APAP 5/325 [Percocet 1 each PO Q8HR PRN 2 Days #6 tablet 07/22/18 5/325 MG] Ertapenem [INVanz] 500 mg IVPB DAILY #7 vial 07/26/18 Allergies Allergy/AdvReac Type Severity Reaction Status Date / Time piperacillin [From Zosyn] Allergy Anaphylaxis Verified 07/05/18 10:03 tazobactam [From Zosyn] Allergy Anaphylaxis Verified 07/05/18 10:03 All systems ED: reviewed and negative except as stated. Constitutional: Denies: fever, chills ENT ED: Denies: throat pain, congestion, dysphagia Cardiovascular: Denies: chest pain, palpitations Respiratory: Reports: cough. Denies: dyspnea, wheezes, hemoptysis, stridor, sputum production Gastrointestinal: Denies: abdominal pain, nausea, vomiting, diarrhea, constipation, hematemesis, melena, hematochezia Genitourinary: Reports: other (anuria related to HD) Integumentary: Reports: other (multiple wounds, venous stasis wounds) Past Medical History - Past Medical History Attestation: Yes The following information was validated with the patient. Source: patient, old records reviewed Medical history: Reports: atrial fibrillation, CHF, COPD, coronary artery disease, diabetes, GI bleed, hyperlipidemia, hypertension, myocardial infarction, peripheral artery disease, renal disease, other Surgical history: Reports: angioplasty/stent, appendectomy, cholecystectomy, coronary bypass (CABG), hysterectomy, knee replacement, other, IVC filter Psychiatric history: Reports: anxiety, depression, schizophrenia, previous psy chiatric hospitalization [employer] history: Reports: other - Social History Smoking Status: Current every day smoker Smokeless Tobacco Status: No Alcohol use: Reports: none Drug use: Reports: none Physical Exam - General Limitations: physical limitation General appearance: alert, in no apparent distress - Head Head exam: atraumatic, normocephalic, normal inspection - Eye Eye exam: Present: normal appearance - ENT ENT exam: mucous membranes moist - Neck Neck exam: Present: normal inspection, full ROM, trachea midline - Chest Chest inspection: Present: normal inspection, symmetric chest wall rise - Respiratory Respiratory exam: Present: other (rhoncii through out, dry cough) - Cardiovascular Cardiovascular exam: Present: irregular rhythm, normal heart sounds - Abdominal Exam Abdominal exam: Present: soft, Non-Tender, normal bowel sounds - Neurological Exam Neurological exam: Present: alert - Psychiatric Psychiatric exam: Present: normal affect, normal mood - Skin Skin exam: Present: warm, dry, normal color Course Course Narrative: Nontoxic appearing female in no acute distress. Patient is noted with a dry cough but does have some congestion in her chest, rhonchi noted throughout. She does speak at her baseline, respirations are easy and even, SPO2 97% during my assessment. Patient is alert, talkative. Fistula to left upper extremity positive for a positive thrill. Abdomen is soft, nontender. Patient does appear fluid overloaded, we will get EKG, labs and reevaluate. - Reevaluation(s) Reevaluation #1: Patient is resting quietly in no acute distress. Respirations continue be easy and even. EKG reveals atrial fibrillation heart rate 91, QTc 450 ms, no sign of ischemia. Chest x-ray returns with cardiomegaly which is chronic and groundglass a pacer disease consistent with edema. CBC is benign without evidence of infection, metabolic panel shows creatinine of 3.83 with GFR of 12, troponin negative, lactic acid 1.2, BNP 704 indicating fluid overload status. Patient with known noncompliance for outpatient dialysis, concern for worsening of symptoms should she return to the long-term care facility. I do think patient would benefit from admission and inpatient dialysis continuing monitoring of her fluid overload status. Patient is anuric, unable to give Lasix or other antidiuretic due to low urine production. Patient will require dialysis to remove fluids. I did discuss this case with attending Dr. Ragsdale is agreeable plan of care has had one-on-one face time with patient. Patient is agreeable to plan of care for admission. Time: 01:59 Reevaluation #2: Spoke with hospitalist Dr. Combs, case presented with acceptance to the hospitalist team. We will transfer care to inpatient medicine at this time. Time: 02:37 Vital Signs Temperature 97.7 F 08/13/18 00:32 Pulse Rate 77 08/13/18 00:32 Respiratory Rate 19 08/13/18 00:32 Blood Pressure 111/47 08/13/18 00:32 O2 Sat by Pulse Oximetry 95 08/13/18 00:32 Temperature 97.7 F 08/13/18 00:32 Pulse Rate 77 18 00:32 Respiratory Rate 19 08/13/18 00:32 Blood Pressure 111/47 08/13/18 00:32 O2 Sat by Pulse Oximetry 95 08/13/18 00:32 Oxygen Delivery Oxygen Delivery Nasal Cannula Medical Decision Making - Lab Data Result diagrams: 08/13/18 00:52 08/13/18 00:52 Lab Results 08/13/18 08/13/18 08/13/18 Range/Units 00:52 00:52 00:52 WBC 8.1 (4.3-11.1) K/mcL RBC 3.68 L (3.82-4.97) M/mcL Hgb 8.6 L (11.5-15.4) g/dL Hct 30.7 L (35.3-44.9) % MCV 83.4 (83.0-100.0) fL MCH 23.4 L (28.0-33.3) pg MCHC 28.0 L (31.6-35.5) g/dL RDW 19.2 H (11.5-14.5) % Plt Count 136 L (140-400) K/mcL MPV 12.1 (9.4-12.4) fL Immature Gran % 0.5 (0-4) % Seg Neutrophils % 82.4 % Lymphocytes % 7.5 % Monocytes % 7.5 % Eosinophils % 1.6 % Basophils % 0.5 % Neutrophils # 6.7 (1.6-8.9) K/mcL Lymphocytes # 0.6 (0.6-4.6) K/mcL Monocytes # 0.6 (0.0-1.3) K/mcL Eosinophils # 0.1 (0.0-0.6) K/mcL Basophils # 0.0 (0.0-0.2) K/mcL Platelet Estimate Decreased L (Normal) Hypochromasia Present A (Not Present) Anisocytosis 1+ A (Not Present) Sodium 135 L (136-145) mEq/L Potassium 4.2 (3.5-5.1) mEq/L Chloride 99 (98-107) mEq/L Carbon Dioxide 27 (23-29) mEq/L BUN 32 H (8-23) mg/dL Creatinine 3.83 H (0.60-1.20) mg/dL Est GFR ( Amer) 14 L (> 60) Est GFR (Non-Af Amer) 12 L (> 60) BUN/Creatinine Ratio 8 (6-26) Glucose 128 H (70-105) mg/dL Calculated Osmolality 289 (280-300) Lactic Acid 1.2 (0.5-2.2) mmol/L Calcium 9.1 (8.6-10.3) mg/dL Total Bilirubin 0.6 (0.3-1.0) mg/dL Direct Bilirubin 0.2 (0.0-0.2) mg/dL Indirect Bilirubin 0.4 (0.0-1.2) mg/dL AST 12 L (13-39) Units/L ALT 10 (7-52) Units/L Alkaline Phosphatase 193 H (34-104) Units/L Troponin I < 0.03 (< 0.04) ng/mL B-Natriuretic Peptide (Less than 100) pg/mL Serum Total Protein 6.4 (6.4-8.9) g/dL Albumin 3.1 L (3.5-5.7) g/dL Globulin 3.3 (2.4-3.5) g/dL Albumin/Globulin Ratio 0.9 L (1.1-2.2) 08/13/18 Range/Units 00:52 WBC (4.3-11.1) K/mcL RBC (3.82-4.97) M/mcL Hgb (11.5-15.4) g/dL Hct (35.3-44.9) % MCV (83.0-100.0) fL MCH (28.0-33.3) pg MCHC (31.6-35.5) g/dL RDW (11.5-14.5) % Plt Count (140-400) K/mcL MPV (9.4-12.4) fL Immature Gran % (0-4) % Seg Neutrophils % % Lymphocytes % % Monocytes % % Eosinophils % % Basophils % % Neutrophils # (1.6-8.9) K/mcL Lymphocytes # (0.6-4.6) K/mcL Monocytes # (0.0-1.3) K/mcL Eosinophils # (0.0-0.6) K/mcL Basophils # (0.0-0.2) K/mcL Platelet Estimate (Normal) Hypochromasia (Not Present) Anisocytosis (Not Present) Sodium (136-145) mEq/L Potassium (3.5-5.1) mEq/L Chloride (98-107) mEq/L Carbon Dioxide (23-29) mEq/L BUN (8-23) mg/dL Creatinine (0.60-1.20) mg/dL Est GFR ( Amer) (> 60) Est GFR (Non-Af Amer) (> 60) BUN/Creatinine Ratio (6-26) Glucose (70-105) mg/dL Calculated Osmolality (280-300) Lactic Acid (0.5-2.2) mmol/L Calcium (8.6-10.3) mg/dL Total Bilirubin (0.3-1.0) mg/dL Direct Bilirubin (0.0-0.2) mg/dL Indirect Bilirubin (0.0-1.2) mg/dL AST (13-39) Units/L ALT (7-52) Units/L Alkaline Phosphatase (34-104) Units/L Troponin I (< 0.04) ng/mL B-Natriuretic Peptide 704 H (Less than 100) pg/mL Serum Total Protein (6.4-8.9) g/dL Albumin (3.5-5.7) g/dL Globulin (2.4-3.5) g/dL Albumin/Globulin Ratio (1.1-2.2)
[2018-08-13 01:08] LABS: Basophils % 0.5 %; Immature Granulocytes % 0.5 % (0-4); Mean Corpuscular Hemoglobin 23.4 pg (28.0-33.3)
[2018-08-13 01:09] LABS: Eosinophils # 0.1 K/mcL (0.0-0.6); Eosinophils % 1.6 %; Hematocrit 30.7 % (35.3-44.9); Hemoglobin 8.6 g/dL (11.5-15.4); Lymphocytes # 0.6 K/mcL (0.6-4.6); Lymphocytes % 7.5 %; Mean Corpuscular Volume 83.4 fL (83.0-100.0); Mean Platelet Volume 12.1 fL (9.4-12.4); Monocytes # 0.6 K/mcL (0.0-1.3); Monocytes % 7.5 %; Neutrophils # 6.7 K/mcL (1.6-8.9); Platelet Count 136 K/mcL (140-400); Red Blood Count 3.68 M/mcL (3.82-4.97); Red Cell Distribution Width 19.2 % (11.5-14.5); Segmented Neutrophils % 82.4 %
[2018-08-13 01:27] LABS: Platelet Estimate Decreased (Normal)
[2018-08-13 01:28] LABS: Anisocytosis 1+ (Not Present); Hypochromasia Present (Not Present)
[2018-08-13 01:30] LABS: Alanine Aminotransferase 10 Units/L (7-52); Albumin 3.1 g/dL (3.5-5.7); Albumin/Globulin Ratio 0.9 (1.1-2.2); Alkaline Phosphatase 193 Units/L (34-104); Aspartate Amino Transferase 12 Units/L (13-39); BUN/Creatinine Ratio 8 (6-26); Bilirubin,Direct 0.2 mg/dL (0.0-0.2); Bilirubin,Indirect 0.4 mg/dL (0.0-1.2); Bilirubin,Total 0.6 mg/dL (0.3-1.0); Blood Urea Nitrogen 32 mg/dL (8-23); Calcium 9.1 mg/dL (8.6-10.3); Carbon Dioxide 27 mEq/L (23-29); Chloride 99 mEq/L (98-107); Globulin 3.3 g/dL (2.4-3.5); Glucose 128 mg/dL (70-105); Osmolality,Calculated 289 (280-300); Potassium 4.2 mEq/L (3.5-5.1); Sodium 135 mEq/L (136-145); Total Protein 6.4 g/dL (6.4-8.9); Troponin I < 0.03 ng/mL (< 0.04); eGFR For Non-African Americans 12 (> 60)
--- NOTE | 2018-08-13 02:00 | Emergency Department Note ---
Disposition Clinical Impression: Pulmonary edema, ESRD (end stage renal disease) Disposition: Admitted As Inpatient Referrals: NONE,PCP [Primary Care Provider] - Forms: ED Satisfaction Letter General Adult HPI - General Chief complaint: ED Shortness of Breath/Dyspnea Stated complaint: SOB Time Seen by Provider: 08/13/18 00:22 Source: patient, EMS Mode of arrival: EMS Limitations: physical limitation - History of Present Illness Pain Scale: 9 Improves with: nothing Worsens with: nothing - Related Data Home Medications Medication Instructions Recorded Confirmed Colestipol HCl [Colestid] 1 gm PO BID 06/12/15 07/25/18 Calcium Acetate [Phos-LO] 1,334 mg PO TIDWM 09/06/16 07/25/18 ARIPiprazole [Abilify] 10 mg PO DAILY 09/13/17 07/25/18 Aspirin Enteric Coated [Aspirin EC] 81 mg PO DAILY 09/13/17 07/25/18 Budesonide/Formoterol 160/4.5 2 puff IH BIDR 09/13/17 07/25/18 [Symbicort 160/4.5] Cholecalciferol (Vitamin D3) 50,000 unit PO TH 09/13/17 07/25/18 [Vitamin D3] Sevelamer [Renvela] 800 mg PO DAILY 09/13/17 07/25/18 Albuterol Neb [AccuNeb] 0.63 mg IH Q6H PRN 10/18/17 07/25/18 amLODIPine [Norvasc] 5 mg PO DAILY 12/30/17 07/25/18 Clopidogrel [Plavix] 75 mg PO DAILY 02/03/18 07/25/18 Rosuvastatin Calcium [Crestor] 20 mg PO DAILY 02/27/18 07/25/18 Carvedilol 12.5 mg PO BID 04/28/18 07/25/18 Darbepoetin [Aranesp] 60 mcg SQ TH 04/28/18 07/25/18 Insulin DETEMIR [Levemir] 28 unit SQ HS 04/28/18 07/25/18 Insulin LISPRO [HumaLOG] 2 - 10 units SQ TIDWM 04/28/18 07/25/18 Lactobacillus Acidophilus/Fos 1 tab PO DAILY 04/28/18 07/25/18 [Acidophilus Probiotic Tablet] Omeprazole [PriLOSEC] 20 mg PO DAILY 04/28/18 07/25/18 Ondansetron HCl [Zofran] 4 mg PO Q12H PRN 04/28/18 07/25/18 Previous Rx's Medication Instructions Recorded Amitriptyline [Elavil] 50 mg PO HS tablet 03/24/18 Metoclopramide [Reglan] 5 mg PO TIDAC 3 Days #9 ud.liq 04/08/18 Sucralfate [Carafate] 1 gm PO QIDAC 3 Days #12 tablet 04/08/18 Renal Vitamin [Renal Caps Softgel] 1 mg PO DAILY capsule 04/17/18 Gentamicin Oint [Garamycin] 1 appl TP BID #1 tube 06/17/18 Isosorbide MONOnitrate (24 HR) 30 mg PO DAILY #30 tab.er.24h 07/04/18 [Imdur] Benzonatate [Tessalon] 200 mg PO TID PRN 10 Days #30 07/22/18 capsule Gabapentin [Neurontin] 100 mg PO TID 4 Days #12 capsule 07/22/18 OxyCODONE/APAP 5/325 [Percocet 1 each PO Q8HR PRN 2 Days #6 tablet 07/22/18 5/325 MG] Ertapenem [INVanz] 500 mg IVPB DAILY #7 vial 07/26/18 Allergies Allergy/AdvReac Type Severity Reaction Status Date / Time piperacillin [From Zosyn] Allergy Anaphylaxis Verified 07/05/18 10:03 tazobactam [From Zosyn] Allergy Anaphylaxis Verified 07/05/18 10:03 Constitutional: Denies: fever, chills ENT ED: Denies: throat pain, congestion, dysphagia Cardiovascular: Denies: chest pain, palpitations Respiratory: Reports: cough. Denies: dyspnea, wheezes, hemoptysis, stridor, sputum production Gastrointestinal: Denies: abdominal pain, nausea, vomiting, diarrhea, constipation, hematemesis, melena, hematochezia Genitourinary: Reports: other (anuria related to HD) Integumentary: Reports: other (multiple wounds, venous stasis wounds) Past Medical History - Past Medical History Medical history: Reports: atrial fibrillation, CHF, COPD, coronary artery disease, diabetes, GI bleed, hyperlipidemia, hypertension, myocardial i nfarction, peripheral artery disease, renal disease, other Surgical history: Reports: angioplasty/stent, appendectomy, cholecystectomy, coronary bypass (CABG), hysterectomy, knee replacement, other, IVC filter Psychiatric history: Reports: anxiety, depression, schizophrenia, previous psychiatric hospitalization [employer] history: Reports: other - Social History Smoking Status: Current every day smoker Smokeless Tobacco Status: No Alcohol use: Reports: none Drug use: Reports: none Physical Exam - General Limitations: physical limitation General appearance: alert, in no apparent distress Course Vital Signs Temperature 97.7 F 08/13/18 00:32 Pulse Rate 77 08/13/18 00:32 Respiratory Rate 19 08/13/18 00:32 Blood Pressure 111/47 08/13/18 00:32 O2 Sat by Pulse Oximetry 95 08/13/18 00:32 Temperature 97.7 F 08/13/18 00:32 Pulse Rate 77 08/13/18 00:32 Respiratory Rate 19 08/13/18 00:32 Blood Pressure 111/47 08/13/18 00:32 O2 Sat by Pulse Oximetry 95 08/13/18 00:32 Oxygen Delivery Oxygen Delivery Nasal Cannula Medical Decision Making - Lab Data Result diagrams: 08/13/18 00:52 08/13/18 00:52 Lab Results 08/13/18 08/13/18 08/13/18 Range/Units 00:52 00:52 00:52 WBC 8.1 (4.3-11.1) K/mcL RBC 3.68 L (3.82-4.97) M/mcL Hgb 8.6 L (11.5-15.4) g/dL Hct 30.7 L (35.3-44.9) % MCV 83.4 (83.0-100.0) fL MCH 23.4 L (28.0-33.3) pg MCHC 28.0 L (31.6-35.5) g/dL RDW 19.2 H (11.5-14.5) % Plt Count 136 L (140-400) K/mcL MPV 12.1 (9.4-12.4) fL Immature Gran % 0.5 (0-4) % Seg Neutrophils % 82.4 % Lymphocytes % 7.5 % Monocytes % 7.5 % Eosinophils % 1.6 % Basophils % 0.5 % Neutrophils # 6.7 (1.6-8.9) K/mcL Lymphocytes # 0.6 (0.6-4.6) K/mcL Monocytes # 0.6 (0.0-1.3) K/mcL Eosinophils # 0.1 (0.0-0.6) K/mcL Basophils # 0.0 (0.0-0.2) K/mcL Platelet Estimate Decreased L (Normal) Hypochromasia Present A (Not Present) Anisocytosis 1+ A (Not Present) Sodium 135 L (136-145) mEq/L Potassium 4.2 (3.5-5.1) mEq/L Chloride 99 (98-107) mEq/L Carbon Dioxide 27 (23-29) mEq/L BUN 32 H (8-23) mg/dL Creatinine 3.83 H (0.60-1.20) mg/dL Est GFR ( Amer) 14 L (> 60) Est GFR (Non-Af Amer) 12 L (> 60) BUN/Creatinine Ratio 8 (6-26) Glucose 128 H (70-105) mg/dL Calculated Osmolality 289 (280-300) Lactic Acid 1.2 (0.5-2.2) mmol/L Calcium 9.1 (8.6-10.3) mg/dL Total Bilirubin 0.6 (0.3-1.0) mg/dL Direct Bilirubin 0.2 (0.0-0.2) mg/dL Indirect Bilirubin 0.4 (0.0-1.2) mg/dL AST 12 L (13-39) Units/L ALT 10 (7-52) Units/L Alkaline Phosphatase 193 H (34-104) Units/L Troponin I < 0.03 (< 0.04) ng/mL B-Natriuretic Peptide (Less than 100) pg/mL Serum Total Protein 6.4 (6.4-8.9) g/dL Albumin 3.1 L (3.5-5.7) g/dL Globulin 3.3 (2.4-3.5) g/dL Albumin/Globulin Ratio 0.9 L (1.1-2.2) 08/13/18 Range/Units 00:52 WBC (4.3-11.1) K/mcL RBC (3.82-4.97) M/mcL Hgb (11.5-15.4) g/dL Hct (35.3-44.9) % MCV (83.0-100.0) fL MCH (28.0-33.3) pg MCHC (31.6-35.5) g/dL RDW (11.5-14.5) % Plt Count (140-400) K/mcL MPV (9.4-12.4) fL Immature Gran % (0-4) % Seg Neutrophils % % Lymphocytes % % Monocytes % % Eosinophils % % Basophils % % Neutrophils # (1.6-8.9) K/mcL Lymphocytes # (0.6-4.6) K/mcL Monocytes # (0.0-1.3) K/mcL Eosinophils # (0.0-0.6) K/mcL Basophils # (0.0-0.2) K/mcL Platelet Estimate (Normal) Hypochromasia (Not Present) Anisocytosis (Not Present) Sodium (136-145) mEq/L Potassium (3.5-5.1) mEq/L Chloride (98-107) mEq/L Carbon Dioxide (23-29) mEq/L BUN (8-23) mg/dL Creatinine (0.60-1.20) mg/dL Est GFR ( Amer) (> 60) Est GFR (Non-Af Amer) (> 60) BUN/Creatinine Ratio (6-26) Glucose (70-105) mg/dL Calculated Osmolality (280-300) Lactic Acid (0.5-2.2) mmol/L Calcium (8.6-10.3) mg/dL Total Bilirubin (0.3-1.0) mg/dL Direct Bilirubin (0.0-0.2) mg/dL Indirect Bilirubin (0.0-1.2) mg/dL AST (13-39) Units/L ALT (7-52) Units/L Alkaline Phosphatase (34-104) Units/L Troponin I (< 0.04) ng/mL B-Natriuretic Peptide 704 H (Less than 100) pg/mL Serum Total Protein (6.4-8.9) g/dL Albumin (3.5-5.7) g/dL Globulin (2.4-3.5) g/dL Albumin/Globulin Ratio (1.1-2.2) Attestation Statement - Attestation Attestation: I have personally performed a face to face evaluation on this patient. I have reviewed and agree with the care plan. History and Exam by me shows: End-stage renal disease patient with acute volume overload. Pulmonary edema on x-ray. This short of breath but maintaining oxygen saturations on 4 L of oxygen by nasal cannula (on 3 L of oxygen for maintenance). We will admit for inpatient dialysis.
[2018-08-13] MEDS ORDERED: Dextrose Gel 15 GM/37.5 ML TUBE PO PRN ×2 (05:27)
[2018-08-13] MEDS ORDERED: *HR* Dextrose 50 % in Water (Syg) 50 ML SYRINGE IVP PRN (05:27)
[2018-08-13] MEDS ORDERED: D5% in Water 1,000 ML IVC PRN (05:27)
[2018-08-13] MEDS ORDERED: Naloxone 0.4 MG/ML INJ IVP PRN (05:27)
[2018-08-13] MEDS ORDERED: Albuterol 2.5 MG/3 ML NEBULIZER IH PRN (05:27)
--- NOTE | 2018-08-13 05:41 | Internal Med History&Physical ---
Date of Encounter: 08/13/18 Time of Encounter: 05:40 Internal Medicine - H&P: HPI Chief complaint: SOB; CHF Admitted From: Emergency Dept Plans for Post Hospital Care: Transfer Longterm Facility History of present illness: Ms. Riley is a 63 year old female who presents to the ER tonight complaining of shortness of breath, swelling, and difficulty breathing. She was just discharged from the hospital almost 2 weeks ago. Since then, she has been unable to tolerate her full dialysis treatments. She has had to cut several dialysis treatments in half. Her last 2 dialysis treatments were cut prematurely. In the ER, she had imaging and routine labs performed. Imaging of her chest suggested CHF. She makes no urine. She was therefore admitted to hospitalist service with a consult to nephrology for dialysis. Upon my assessment of the patient, she is somnolent but easily arousable and coherent. She is quite dyspneic and has audible gurgling sounds in her throat. She appears to be unable to protect her airway. She complains of some worsening dyspnea, subjective fevers, extreme fatigue, and worsening weight gain and edema. She is hypoxemic and is working hard to breathe. Clinically, she has evidence of anasarca, increased work of breathing, and several open chronic wounds in her legs. I reviewed her old records and note that she had sputum culture positive just a few weeks ago for Escherichia coli and Proteus. I then proceeded to view her x-ray, and I am concerned that she is likely aspirating and suffering from aspiration pneumonia in addition to CHF. After initial assessment above, I had a detailed talk with patient about CODE STATUS as I am concerned she may likely need an airway/ET tube here in the coming hours. She requests to be DNR Arrest but she is okay with short-term i ntubation. Given her suspected aspiration and concern for inability to protect her airway, I will keep her nothing by mouth and ask speech therapy to see her in consultation. I am hopeful that with dialysis and fluid removal, she will be breathing better. However, if she fails to improve and/or decompensate, she will need urgent intubation and mechanical ventilation. I explained all this to the patient and, again, she is agreeable to short-term intubation. Past Med Surg Social Fam HX - Past Medical History Attestation: Yes The following information was validated with the patient. Source: patient, old records reviewed Medical history: atrial fibrillation, CHF, COPD, coronary artery disease, diabetes, dialysis, GI bleed, hyperlipidemia, hypertension, myocardial infarcti on, peripheral artery disease, renal disease Additional medical history: AV fistula for dialysis ++ Psychiatric history: anxiety, depression, schizophrenia, previous psychiatric hospitalization - Past Surgical History Surgical History: angioplasty/stent, appendectomy, cholecystectomy, coronary bypass (CABG), hysterectomy, knee replacement, other, IVC filter Additional surgical history: left arm fistulogram with covered stent placement left basilic vein 2016. kidney stones 1996. double Bypass 1998. stents x5 unsure date. right wrist 2017 - Social History Smoking Status: Current every day smoker Smokeless Tobacco Status: No Alcohol use: none Drug use: none Recent Out of Country Travel Within the Last 8 Weeks: No - Family History Father Family Member Ethnicity: Non- Living Status: Hx Family Cardiac Disorders: Yes Hx Family Respiratory Disorders: Yes Hx Family Cancer: Yes (Polycythemia) Hx Family Endocrine Disorder: Yes (DM) Mother Family Member Ethnicity: Non- Living Status: Still Living Hx Family Cardiac Disorders: Yes Hx Family Respiratory Disorders: Yes (asthma, COPD) Brother Adopted: No Family Member Ethnicity: Non- Living Status: Still Living Hx Family Cardiac Disorders: No Hx Family Respiratory Disorders: No Hx Family Cancer: No Hx Family GI Disorders: No Hx Family Endocrine Disorder: No Hx Family Neuromuscular Disorders: No Hx Family Neurologic Disorders: No Hx Family HEENT Disorders: No Hx Family Autoimmune Disorders: No Sister Adopted: No Family Member Ethnicity: Non- Living Status: Still Living Hx Family Cardiac Disorders: Yes Hx Family Respiratory Disorders: No Hx Family Cancer: No Hx Family GI Disorders: No Hx Family Endocrine Disorder: Yes Hx Family Neuromuscular Disorders: No Hx Family Neurologic Disorders: No Hx Family HEENT Disorders: No Hx Family Autoimmune Disorders: No Internal Medicine - H&P: Meds Colestipol HCl [Colestid] 1 gm PO BID 06/12/15 [History] Calcium Acetate [Phos-LO] 1,334 mg PO TIDWM 09/06/16 [History] ARIPiprazole [Abilify] 10 mg PO DAILY 09/13/17 [History] Aspirin Enteric Coated [Aspirin EC] 81 mg PO DAILY 09/13/17 [History] Budesonide/Formoterol 160/4.5 [Symbicort 160/4.5] 2 puff IH BIDR 09/13/17 [History] Cholecalciferol (Vitamin D3) [Vitamin D3] 50,000 unit PO TH 09/13/17 [History] Sevelamer [Renvela] 800 mg PO DAILY 09/13/17 [History] Albuterol Neb [AccuNeb] 0.63 mg IH Q6H PRN 10/18/17 [History] amLODIPine [Norvasc] 5 mg PO DAILY 12/30/17 [History] Clopidogrel [Plavix] 75 mg PO DAILY 02/03/18 [History] Rosuvastatin Calcium [Crestor] 20 mg PO DAILY 02/27/18 [History] Amitriptyline [Elavil] 50 mg PO HS tablet 03/24/18 [Rx] Metoclopramide [Reglan] 5 mg PO TIDAC 3 Days #9 ud.liq 04/08/18 [Rx] Sucralfate [Carafate] 1 gm PO QIDAC 3 Days #12 tablet 04/08/18 [Rx] Renal Vitamin [Renal Caps Softgel] 1 mg PO DAILY capsule 04/17/18 [Rx] Carvedilol 12.5 mg PO BID 04/28/18 [History] Darbepoetin [Aranesp] 60 mcg SQ TH 04/28/18 [History] Insulin DETEMIR [Levemir] 28 unit SQ HS 04/28/18 [History] Insulin LISPRO [HumaLOG] 2 - 10 units SQ TIDWM 04/28/18 [History] Lactobacillus Acidophilus/Fos [Acidophilus Probiotic Tablet] 1 tab PO DAILY 04/28/18 [History] Omeprazole [PriLOSEC] 20 mg PO DAILY 04/28/18 [History] Ondansetron HCl [Zofran] 4 mg PO Q12H PRN 04/28/18 [History] Gentamicin Oint [Garamycin] 1 appl TP BID #1 tube 06/17/18 [Rx] Isosorbide MONOnitrate (24 HR) [Imdur] 30 mg PO DAILY #30 tab.er.24h 07/04/18 [Rx] Benzonatate [Tessalon] 200 mg PO TID PRN 10 Days #30 capsule 07/22/18 [Rx] Gabapentin [Neurontin] 100 mg PO TID 4 Days #12 capsule 07/22/18 [Rx] OxyCODONE/APAP 5/325 [Percocet 5/325 MG] 1 each PO Q8HR PRN 2 Days #6 tablet 07/22/18 [Rx] Ertapenem [INVanz] 500 mg IVPB DAILY #7 vial 07/26/18 [Rx] Allergy/AdvReac Type Severity Reaction Status Date / Time piperacillin [From Zosyn] Allergy Anaphylaxis Verified 07/05/18 10:03 tazobactam [From Zosyn] Allergy Anaphylaxis Verified 07/05/18 10:03 - Constitutional Constitutional: chills, fatigue, no fever(s), no night sweats - EENT Eyes: no blurry vision, no change in vision Ears: no ear pain, no tinnitus Nose, mouth and throat: dysphagia, no nasal congestion, no sore throat - Cardiovascular Cardiovascular ROS IM: dyspnea, edema, no chest pain - Respiratory Respiratory: cough, chest congestion, excessive phlegm production, change in phlegm color, no hemoptysis - Gastrointestinal Gastrointestinal: no hematemesis, no hematochezia, no melena, no vomiting - Musculoskeletal Musculoskeletal ROS IM: no back pain - Integumentary Integumentary IM: no rash, no jaundice - Neurological Neurological ROS: no focal weakness, no frequent falls - Psychiatric Psychiatric: anxiety, no depression - Endocrine Endocrine IM: no polydipsia, no polyuria - Allergic/Immunologic Allergic/Immunologic: wheezing - Constitutional Vitals: Temp Pulse Resp BP Pulse Ox 97.7 F 77 17 93/65 95 08/13/18 00:32 08/13/18 00:32 08/13/18 04:26 08/13/18 04:26 08/13/18 00:32 General appearance: Present: cooperative, mild distress, morbidly obese, answers questions appropriately Exam: somnolent, easily arousable, gurgling, increased work of breathing - Head Head exam: Present: atraumatic, normal inspection - Eye Eye exam: Present: EOMI, PERRL. Absent: scleral icterus Pupils: Present: normal accommodation - ENT ENT exam: Present: mucous membranes dry, normal exam, normal oropharynx - Neck Neck exam general surgery: Present: full ROM, supple. Absent: tenderness, nuchal rigidity, thyromegaly - Respiratory Respiratory exam: Present: prolonged expiratory phase, rales (most prominent in right base), respiratory distress, rhonchi, wheezes. Absent: chest wall tenderness - Cardiovascular Cardiovascular exam: Present: distant heart sounds, RRR, +S1, +S2. Absent: diastolic murmur, systolic murmur - GI/Abdominal GI/Abdominal exam: Present: soft. Absent: guarding, hepatomegaly, rebound, splenomegaly, tenderness - Extremities Exam Extremities exam: Present: pedal edema (4+ with evidence of anasarca), tenderness, warm, radial pulses palpable and symmetrical. Absent: calf tenderness, joint swelling Additional comments: several chronic, old open sores on her legs - Neurological Exam Neurological exam: Present: CN II-XII intact, no focal deficits. Absent: alert Additional comments: somnolent but easily arousable - Psychiatric Psychiatric exam: Present: normal affect, normal mood - Skin Skin exam: Present: dry, erythema (both lower extremiteis), warm Internal Med - H&P Results - Labs CBC & Chem 7: 08/13/18 00:52 08/13/18 00:52 Labs: Short CBC 08/13/18 Range/Units 00:52 WBC 8.1 (4.3-11.1) K/mcL Hgb 8.6 L (11.5-15.4) g/dL Hct 30.7 L (35.3-44.9) % Plt Count 136 L (140-400) K/mcL Neutrophils # 6.7 (1.6-8.9) K/mcL BMP 08/13/18 00:52 Sodium 135 L Potassium 4.2 Chloride 99 Carbon Dioxide 27 BUN 32 H Creatinine 3.83 H Glucose 128 H Calcium 9.1 Cardiac Enzymes 08/13/18 Range/Units 00:52 Troponin I < 0.03 (< 0.04) ng/mL Liver Function 08/13/18 Range/Units 00:52 Total Bilirubin 0.6 (0.3-1.0) mg/dL Direct Bilirubin 0.2 (0.0-0.2) mg/dL AST 12 L (13-39) Units/L ALT 10 (7-52) Units/L Alkaline Phosphatase 193 H (34-104) Units/L Albumin 3.1 L (3.5-5.7) g/dL - Impressions ITS Impressions Chest X-Ray 08/13/18 00:36 IMPRESSION: 1. Cardiomegaly with diffuse ground-glass opacities likely representing edema. D/ / Tracy Davey MD / Tracy Davey MD Interpreting Provider: Tracy Davey MD - Diagnostic Studies Chest x-ray Status: image reviewed by me (vascular congestion with concern for aspiration/infiltrate in RLL ) - Assessment and plan (1) Aspiration pneumonia Current Visit: Yes Status: Suspected Assessment and plan: 1. I reviewed recent sputum culture + for E. Coli and Proteus. 2. Will palce on Vancomycin, Invnaz, and Flagyl to cover hospital acquired and, especially, aspiration pneumonia. 3. Will order blood and sputum cultures. 4. Oxygen as needed for support. 5. If necessary, patient agrees to short term intubation. With her aspiration risk, she is not a candidate for BiPap. Qualifiers: Aspiration pneumonia type: unspecified Laterality: right Lung location: lower lobe of lung Qualified Code(s): J69.0 - Pneumonitis due to inhalation of food and vomit (2) End-stage renal disease (ESRD) Current Visit: Yes Status: Chronic Assessment and plan: 1. Consult nephrology for HD needs. (3) Acute CHF Current Visit: Yes Status: Acute Assessment and plan: 1. I agree with short term IV diuresis. 2. Fluid removal per dialysis. 3. Patient makes no urine. Qualifiers: Heart failure type: unspecified Qualified Code(s): I50.9 - Heart failure, unspecified (4) Acute and chronic respiratory failure Current Visit: Yes Status: Acute Assessment and plan: 1. On high flow oxygen for now. 2. She may need to be intubated. 3. Will order Duoneb and albuterol PRN for wheezing. Qualifiers: Respiratory failure complication: hypoxia and hypercapnia Qualified Code(s): J96.21 - Acute and chronic respiratory failure with hypoxia; J96.22 - Acute and chronic respiratory failure with hypercapnia
[2018-08-13 05:42] LABS: ABG Base Excess 3 mEq/L (-2 to 3); ABG HCO3 30 mEq/L (21-27); ABG Oxygen Saturation 91 % (95-98); ABG PCO2 57 mmHg (35-45); ABG PH 7.32 pH Units (7.32-7.45); ABG PO2 67 mmHg (85-104); ABG TCO2 31 mEq/L (20-26)
[2018-08-13] MEDS: *HR* Heparin 5,000 UNIT/ML VIAL SQ SCH ×4 (06:27→21:57)
[2018-08-13] MEDS: Insulin LISPRO 300 UNITS/3 ML VIAL SQ SCH ×3 (06:30→22:10)
[2018-08-13] MEDS ORDERED: 0.9 % Sodium Chloride 250 ML IVC PRN (07:07)
--- NOTE | 2018-08-13 07:15 | Nephrology Consult Note ---
Date of Encounter: 08/13/18 Time of Encounter: 08:30 Assessment and Plan (1) End-stage renal disease on hemodialysis Current Visit: No Status: Chronic ESRD on HD TTS but her last HD was cut short by the pt according the outside medical records from [facility] (I reviewed their [facility] EHR records via the mobile [employer]) at only 150. She has a hx of recurrent noncompliance with HD. She will need HD and I've ordered a longer treatment than usual to help safely remove more UF at a goal of <13mL/hr/kg. She is high risk with a high degree of complex medical decision making and E/M. Anemia of CKD: goal Hgb 10-11. CHF/CAD/DM/Obesity: as per primary but ideally with HD I can help provide an improvement in her volume status, which may help her CHF symptoms. Hx of hyponatremia: should continue to avoid metolazone (see several of my prior documentations). She has a hx of rapidly worsening hyponatremia during the inter-dialytic period of time while taking metolazone, and I've stopped it several times because of this medical concern. Thank you for consulting the [facility] group. (2) Non-compliance with renal dialysis Current Visit: No Status: Chronic See above (3) Acute CHF Current Visit: Yes Status: Acute See above Qualifiers: Heart failure type: unspecified Qualified Code(s): I50.9 - Heart failure, unspecified (4) Acute and chronic respiratory failure Current Visit: Yes Status: Acute See above Qualifiers: Respiratory failure complication: hypoxia and hypercapnia Qualified Code(s): J96.21 - Acute and chronic respiratory failure with hypoxia; J96.22 - Acute and chronic respiratory failure with hypercapnia (5) Volume overload Current Visit: Yes Status: Acute Urgent HD ordered for this AM. Qualifiers: Hypervolemia type: unspecified Qualified Code(s): E87.70 - Fluid overload, unspecified (6) Type 2 diabetes mellitus with ESRD (end-stage renal disease) Current Visit: No Status: Chronic DM as per primary (7) Anemia in chronic kidney disease, on chronic dialysis Current Visit: No Status: Chronic See above History of Present Illness - Reason for Consult Consult date: 08/13/18 end stage renal disease Requesting physician: Mike Combs - Chief Complaint ESRD and Edema - History of Present Illness Lynnette Riley is a very pleasant 63 y/o obese WF with a pmh of ESRD on HD TTS (pt of Dr. Stone), frequent hospitalizations for edema/acute respiratory failure, DM, HTN, obesity, hydronephrosis s/p ureteral stent, recurrent hyponatremia from Metolazone and et al who presents with worsening shortness of breath. She last dialyzed according the outside medical records that I received/reviewed from [facility] on . Instead of her typical 210 min of HD, she cancelled her full treatment at a documented 150 min. She dialyzes at [facility] via a left arm AVG. She reported feeling very tired, and affirmed shortness of breath, cough, which was described as worse than normal. It was challenging to receive much history from her while on dialysis and wearing her oxygen facemask. Much of the history of present illness and review of systems was therefore unobtainable. Past Med Surg Social Fam HX - Past Medical History Medical history: atrial fibrillation, CHF, COPD, coronary artery disease, diabetes, dialysis, GI bleed, hyperlipidemia, hypertension, myocardial infarction, peripheral artery disease, renal disease Additional medical history: AV fistula for dialysis ++ Psychiatric history: anxiety, depression, schizophrenia, previous psychiatric hospitalization - Past Surgical History Surgical History: angioplasty/stent, appendectomy, cholecystectomy, coronary bypass (CABG), hysterectomy, knee replacement, other, IVC filter Additional surgical history: left arm fistulogram with covered stent placement left basilic vein 2016. kidney stones 1996. double Bypass 1998. stents x5 unsure date. right wrist 2017 - Social History Smoking Status: Current every day smoker Smokeless Tobacco Status: No Alcohol use: none Drug use: none - Family History Father Family Member Ethnicity: Non- Living Status: Hx Family Cardiac Disorders: Yes Hx Family Respiratory Disorders: Yes Hx Family Cancer: Yes (Polycythemia) Hx Family Endocrine Disorder: Yes (DM) Mother Family Member Ethnicity: Non- Living Status: Still Living Hx Family Cardiac Disorders: Yes Hx Family Respiratory Disorders: Yes (asthma, COPD) Brother Adopted: No Family Member Ethnicity: Non- Living Status: Still Living Hx Family Cardiac Disorders: No Hx Family Respiratory Disorders: No Hx Family Cancer: No Hx Family GI Disorders: No Hx Family Endocrine Disorder: No Hx Family Neuromuscular Disorders: No Hx Family Neurologic Disorders: No Hx Family HEENT Disorders: No Hx Family Autoimmune Disorders: No Sister Adopted: No Family Member Ethnicity: Non- Living Status: Still Living Hx Family Cardiac Disorders: Yes Hx Family Respiratory Disorders: No Hx Family Cancer: No Hx Family GI Disorders: No Hx Family Endocrine Disorder: Yes Hx Family Neuromuscular Disorders: No Hx Family Neurologic Disorders: No Hx Family HEENT Disorders: No Hx Family Autoimmune Disorders: No Medications and Allergies Colestipol HCl [Colestid] 1 gm PO BID 06/12/15 [History] Calcium Acetate [Phos-LO] 1,334 mg PO TIDWM 09/06/16 [History] ARIPiprazole [Abilify] 10 mg PO DAILY 09/13/17 [History] Aspirin Enteric Coated [Aspirin EC] 81 mg PO DAILY 09/13/17 [History] Budesonide/Formoterol 160/4.5 [Symbicort 160/4.5] 2 puff IH BIDR 09/13/17 [History] Cholecalciferol (Vitamin D3) [Vitamin D3] 50,000 unit PO TH 09/13/17 [History] Sevelamer [Renvela] 800 mg PO DAILY 09/13/17 [History] Albuterol Neb [AccuNeb] 0.63 mg IH Q6H PRN 10/18/17 [History] amLODIPine [Norvasc] 5 mg PO DAILY 12/30/17 [History] Clopidogrel [Plavix] 75 mg PO DAILY 02/03/18 [History] Rosuvastatin Calcium [Crestor] 20 mg PO DAILY 02/27/18 [History] Amitriptyline [Elavil] 50 mg PO HS tablet 03/24/18 [Rx] Metoclopramide [Reglan] 5 mg PO TIDAC 3 Days #9 ud.liq 04/08/18 [Rx] Sucralfate [Carafate] 1 gm PO QIDAC 3 Days #12 tablet 04/08/18 [Rx] Renal Vitamin [Renal Caps Softgel] 1 mg PO DAILY capsule 04/17/18 [Rx] Carvedilol 12.5 mg PO BID 04/28/18 [History] Darbepoetin [Aranesp] 60 mcg SQ TH 04/28/18 [History] Insulin DETEMIR [Levemir] 28 unit SQ HS 04/28/18 [History] Insulin LISPRO [HumaLOG] 2 - 10 units SQ TIDWM 04/28/18 [History] Lactobacillus Acidophilus/Fos [Acidophilus Probiotic Tablet] 1 tab PO DAILY 04/28/18 [History] Omeprazole [PriLOSEC] 20 mg PO DAILY 04/28/18 [History] Ondansetron HCl [Zofran] 4 mg PO Q12H PRN 04/28/18 [History] Gentamicin Oint [Garamycin] 1 appl TP BID #1 tube 06/17/18 [Rx] Isosorbide MONOnitrate (24 HR) [Imdur] 30 mg PO DAILY #30 tab.er.24h 07/04/18 [Rx] Benzonatate [Tessalon] 200 mg PO TID PRN 10 Days #30 capsule 07/22/18 [Rx] Gabapentin [Neurontin] 100 mg PO TID 4 Days #12 capsule 07/22/18 [Rx] OxyCODONE/APAP 5/325 [Percocet 5/325 MG] 1 each PO Q8HR PRN 2 Days #6 tablet 07/22/18 [Rx] Ertapenem [INVanz] 500 mg IVPB DAILY #7 vial 07/26/18 [Rx] Allergy/AdvReac Type Severity Reaction Status Date / Time piperacillin [From Zosyn] Allergy Anaphylaxis Verified 07/05/18 10:03 tazobactam [From Zosyn] Allergy Anaphylaxis Verified 07/05/18 10:03 Review of Systems ROS unobtainable: due to mental status Exam - Vital Signs Vital signs: Initial Vital Signs Temp Pulse Resp BP Pulse Ox 97.7 F 77 19 111/47 95 08/13/18 00:32 08/13/18 00:32 08/13/18 00:32 08/13/18 00:32 08/13/18 00:32 Vital Signs - Last 8 Hours Temp Pulse Resp BP Pulse Ox 08/13/18 06:51 98.0 F 89 107/56 81 08/13/18 05:27 97.8 F 97 17 113/59 90 08/13/18 04:26 17 93/65 08/13/18 00:32 97.7 F 77 19 111/47 95 Intake and Output 08/12/18 08/12/18 08/13/18 15:59 23:59 07:59 Intake Total 0 / 0 Balance 0 / 0 Intake: Oral 0 / 0 Other: Weight 132.165 kg Blood Glucose* 81 Patient Weight 08/13/18 23:59 Weight 132.165 kg - General Appearance General appearance: well-developed, appears started age, obese, moderate distress, fatigue, frail EENT: ATNC, mucous membranes dry Neck: supple Respiratory: rales, course breath sounds Cardiology: edema (3-4+ pretibial pitting edema up to her thighs bilaterraly), regular rate, normal S1, normal S2 - Dialysis Access Dialysis Vascular Access: Arteriovenous Graft (left forearm) thrill: Yes bruit: Yes Gastrointestinal: normoactive bowel sounds, no tenderness, no guarding, obese Integumentary: ecchymotic, chronic venous stasis Neurologic: no asterixis, disoriented Musculoskeletal: no cyanosis Psychiatric: cooperative Results - Lab Results 08/13/18 00:52 08/13/18 00:52 Most recent lab results ABG pH 7.32 pH Units (7.32-7.45) 08/13/18 05:40 ABG pCO2 57 mmHg (35-45) H 08/13/18 05:40 ABG pO2 67 mmHg (85-104) L 08/13/18 05:40 ABG HCO3 30 mEq/L (21-27) H 08/13/18 05:40 ABG O2 Saturation 91 % (95-98) L 08/13/18 05:40 Calcium 9.1 mg/dL (8.6-10.3) 08/13/18 00:52 I reviewed the labs, vitals, med lists, progress notes, vitals and imaging plus outside medical records from [facility] dialysis via the [employer] mobile toby. Consult Discharge Plan - Plan Referrals: NONE,PCP [Primary Care Provider] -
[2018-08-13] MEDS ORDERED: 0.9 % Sodium Chloride 1,000 ML ONE (07:36)
[2018-08-13] MEDS: Ipratropium/Albuterol Neb 3 ML IH SCH ×5 (09:24→23:03)
[2018-08-13] MEDS: MetroNIDAZOLE 500 MG/100 ML 500 MG/100 ML BAG IVPB SCH ×3 (13:05→23:51)
--- NOTE | 2018-08-13 13:42 | Event Note ---
Date of Encounter: 08/13/18 Time of Encounter: 13:00 H&P reviewed. 63-year-old female with history of diastolic heart failure, oxygen dependent COPD, ESRD on hemodialysis TThSat, who has been increasingly becoming intolerant to dialysis sessions, was admitted for acute on chronic hypoxic respiratory failure secondary to fluid overload. She was evaluated before and after dialysis. Initially requiring 15 L of oxygen saturating just above 88% but postdialysis, she is saturating 95% on 10 L of oxygen. There is also a concern about aspiration pneumonia based on the sputum culture done back in July 18 which grew ESBL E. coli and Proteus. She is empirically being covered with Vancomycin/ertapenem/flagyl. We will continue to follow the patient with nephrology. Speech eval pending, will restart her on least restrictive diet after bedside swallow eval. Most likely will require ID and palliative consult on Wednesday. Extremely poor prognosis.
[2018-08-13 16:35] LABS: ABG Base Excess 5 mEq/L (-2 to 3); ABG HCO3 30 mEq/L (21-27); ABG Oxygen Saturation 93 % (95-98); ABG PCO2 48 mmHg (35-45); ABG PH 7.41 pH Units (7.32-7.45); ABG PO2 69 mmHg (85-104); ABG TCO2 32 mEq/L (20-26)
[2018-08-13] MEDS: *HR* HYDROcodone/Acet 5/325 mg TABLET PO PRN (16:39)
[2018-08-13] MEDS ORDERED: Benzonatate 100 MG CAPSULE PO PRN (16:49)
[2018-08-13] MEDS: Calcium Acetate 667 MG CAPSULE PO SCH (18:46)
[2018-08-13] MEDS: Budesonide/Formoterol 160/4.5 1 PUFF INH IH SCH (20:27)
[2018-08-13] MEDS: *HR* OxyCODONE Immed Rel 5 MG TABLET PO PRN (21:44)
[2018-08-13] MEDS: Gabapentin 100 MG CAPSULE PO SCH (21:44)
[2018-08-13] MEDS: Sucralfate 1 GM TABLET PO SCH (21:44)
[2018-08-13] MEDS: (Colestipol Hcl [Colestid] 1 GM) PO SCH (21:45)
[2018-08-14 00:27] LABS: ABG Base Excess 4 mEq/L (-2 to 3); ABG HCO3 30 mEq/L (21-27); ABG Oxygen Saturation 93 % (95-98); ABG PCO2 53 mmHg (35-45); ABG PH 7.37 pH Units (7.32-7.45); ABG PO2 70 mmHg (85-104); ABG TCO2 32 mEq/L (20-26)
[2018-08-14] MEDS: Ipratropium/Albuterol Neb 3 ML IH SCH ×5 (04:59→20:39)
[2018-08-14] MEDS: *HR* Heparin 5,000 UNIT/ML VIAL SQ SCH ×3 (05:16→20:35)
--- NOTE | 2018-08-14 05:21 | Event Note ---
Date of Encounter: 08/14/18 Time of Encounter: 16:07 Notified by nurse of patient oxygen saturations dropping after patient refusing BIPAP. Upon admission patient requested to be DNRCC but open to short term intubation. Patient is alert and oriented, at this time she requests to be a DNR CC and does not want BIPAP, intubation, or CPR. Patient aware decisions could be terminal and that her prognosis is poor. Patient agreeable to palliative care consult. Called Palliative [facility] adf consultant Dr Vaughan who agrees to see patient in consult.
[2018-08-14 06:07] LABS: Basophils % 0.5 %; Eosinophils % 0.8 %; Mean Corpuscular Hemoglobin 23.4 pg (28.0-33.3); Mean Corpuscular Volume 81.1 fL (83.0-100.0)
[2018-08-14 06:09] LABS: Eosinophils # 0.1 K/mcL (0.0-0.6); Hematocrit 29.1 % (35.3-44.9); Hemoglobin 8.4 g/dL (11.5-15.4); Immature Granulocytes % 0.4 % (0-4); Lymphocytes % 12.1 %; Mean Corpuscular HGB Conc 28.9 g/dL (31.6-35.5); Mean Platelet Volume 12.5 fL (9.4-12.4); Monocytes # 0.7 K/mcL (0.0-1.3); Neutrophils # 6.6 K/mcL (1.6-8.9); Platelet Count 127 K/mcL (140-400); Red Blood Count 3.59 M/mcL (3.82-4.97); Red Cell Distribution Width 18.8 % (11.5-14.5); Segmented Neutrophils % 78.2 %
[2018-08-14 06:21] LABS: Anisocytosis 1+ (Not Present); Hypochromasia Present (Not Present); Platelet Estimate Normal (Normal)
[2018-08-14 06:29] LABS: Albumin 2.9 g/dL (3.5-5.7); Albumin/Globulin Ratio 0.9 (1.1-2.2); Bilirubin,Total 0.7 mg/dL (0.3-1.0); Calcium 9.1 mg/dL (8.6-10.3); Globulin 3.2 g/dL (2.4-3.5); Potassium 4.7 mEq/L (3.5-5.1); Total Protein 6.1 g/dL (6.4-8.9)
--- NOTE | 2018-08-14 09:13 | Nephrology Progress Note ---
Date of Encounter: 08/14/18 Time of Encounter: 09:55 - Assessment and Plan (1) End-stage renal disease on hemodialysis Current Visit: No Status: Chronic Yesterday after a longer HD treatment and safe but thorough UF from the dialysis, her oxygen requirements were lower as documented in [employer]. She still has ongoing acute on chronic respiratory failure but perhaps less so than yesterday. So for Wednesday, I recommend no HD: she appeared at her baseline and was sitting upright in her chair heartily eating a large waffle. However, definitely for Wednesday, I will plan for an extra dialysis with UF using a longer treatment time strategy to pull more fluid safely as was the helpful technique employed on Wednesday. After that she may return to her typical HD every TTS. She is high risk with a high degree of complex medical decision making and E/M. Anemia of CKD: goal Hgb 10-11. CHF/CAD/DM/Obesity: as per primary but ideally with HD I can help provide an improvement in her volume status, which may help her CHF symptoms. Hx of hyponatremia: should continue to avoid metolazone (see several of my prior documentations). She has a hx of rapidly worsening hyponatremia during the inter-dialytic period of time while taking metolazone, and I've stopped it several times because of this medical concern. My colleague Dr. Rivers will be on-call starting tomorrow. Thank you (2) Acute CHF Current Visit: Yes Status: Acute Qualifiers: Heart failure type: unspecified Qualified Code(s): I50.9 - Heart failure, unspecified (3) Acute and chronic respiratory failure Current Visit: Yes Status: Acute Qualifiers: Respiratory failure complication: hypoxia and hypercapnia Qualified Code(s): J96.21 - Acute and chronic respiratory failure with hypoxia; J96.22 - Acute and chronic respiratory failure with hypercapnia (4) Volume overload Current Visit: Yes Status: Acute Qualifiers: Hypervolemia type: unspecified Qualified Code(s): E87.70 - Fluid overload, unspecified (5) Type 2 diabetes mellitus with ESRD (end-stage renal disease) Current Visit: No Status: Chronic (6) Anemia in chronic kidney disease, on chronic dialysis Current Visit: No Status: Chronic Subjective Principal diagnosis: ESRD, Shortness of breath Interval history: Pt was s/e. She was sitting upright in her chair and eating a waffle covered in thick syrup. She voiced feeling somewhat better today after dialysis on Wednesday. She voiced hoping to have no extra dialysis today (Wednesday). Objective - Vital Signs Vital signs: Vital Signs Temp Pulse Resp BP Pulse Ox 08/14/18 08:02 16 98 08/14/18 06:16 97.8 F 98 16 90/54 98 08/14/18 04:58 16 92 08/14/18 04:18 97.0 F L 80 15 104/69 97 08/14/18 00:12 98.1 F 86 16 124/62 92 08/13/18 22:58 15 113/59 96 08/13/18 20:28 18 08/13/18 16:20 18 93 08/13/18 15:33 98.9 F 95 104/69 08/13/18 12:50 97.8 F 20 121/55 08/13/18 12:25 111/52 08/13/18 12:10 114/71 08/13/18 11:55 113/60 08/13/18 11:40 126/60 08/13/18 11:25 118/60 08/13/18 11:10 117/56 08/13/18 10:55 113/56 08/13/18 10:40 131/63 08/13/18 10:25 131/56 Intake and Output 08/14/18 08/14/18 08/14/18 00:59 07:59 15:59 Intake Total 200 / 200 Output Total Balance 200 / 200 Intake: IV Fluids 200 / 200 INVanz 500 MG In 0.9 % Sodium 100 / 100 Chloride 100 ML @ 100 mls/hr IVPB DAILY NATALIE Rx#:[id number] Flagyl Premix 500 MG/100 ML 500 100 / 100 mg In 100 ml @ 100 mls/hr IVPB Q8HR NATALIE Rx#:[id number] Vancocin 1,750 MG In 0.9 % Sodium Chloride 500 ML @ 334. 014 mls/hr IVPB ONCE ONE Rx#: [id number] Oral Output: Urine Other: Meal Percent of Meal Consumed Weight Blood Glucose* Patient Weight 08/14/18 22:59 Weight 126.7 kg - General Appearance Exam: General appearance: well-developed, appears started age, obese, moderate distress, fatigue, frail EENT: ATNC, mucous membranes dry Neck: supple Respiratory: rales, course breath sounds Cardiology: edema (3-4+ pretibial pitting edema up to her thighs bilaterraly), regular rate, normal S1, normal S2 - Dialysis Access Dialysis Vascular Access: Arteriovenous Graft (left forearm) thrill: Yes bruit: Yes Gastrointestinal: normoactive bowel sounds, no tenderness, no guarding, obese Integumentary: ecchymotic, chronic venous stasis Neurologic: no asterixis, disoriented Musculoskeletal: no cyanosis Psychiatric: cooperative - Lab 08/15/18 04:41 08/15/18 04:41 Most recent lab results ABG pH 7.37 pH Units (7.32-7.45) 08/14/18 00:23 ABG pCO2 53 mmHg (35-45) H 08/14/18 00:23 ABG pO2 70 mmHg (85-104) L 11 00:23 ABG HCO3 30 mEq/L (21-27) H 08/14/18 00:23 ABG O2 Saturation 93 % (95-98) L 08/14/18 00:23 Calcium 9.1 mg/dL (8.6-10.3) 08/14/18 05:38 Magnesium 2.0 mg/dL (1.6-2.6) 08/14/18 05:38 Consult Discharge Plan - Plan Referrals: NONE,PCP [Primary Care Provider] -
[2018-08-14 09:26] LABS: Estimated Average Glucose 140 mg/dl; Hemoglobin A1C 6.5 %
--- NOTE | 2018-08-14 09:47 | Internal Med Progress Note ---
Hospitalist Progress Note - Encounter Date of Encounter: 08/14/18 Time of Encounter: 08:15 - Subjective Interval History: O2 requirement and her mental status improved after dialysis session yesterday. States that she is still coughing but unable to expectorate. No fever/chills. She clearly expressed her wish not to be intubated should her O2 requirement goes up again, which is consistent with the CONFERENCE COORDINATOR's notes overnight. - Exam Vitals: Temp Pulse Resp BP Pulse Ox 97.8 F 98 16 90/54 98 08/14/18 06:16 08/14/18 06:16 08/14/18 08:02 08/14/18 06:16 08/14/18 08:02 Exam: General: Alert and oriented, mild distress. Cardiovascular:Normal S1 & S2 Lungs: bilateral rhonchi Abdomen:Soft, non-tender, no rigidity. Extremities: Chronic, old open wounds on her legs bilaterally Neurological: No focal deficits - Assessment and Plan (1) Acute and chronic respiratory failure Current Visit: Yes Status: Acute Assessment and Plan: suspect fluid overload as main etiology +/- aspiration pneumonia O2 requirement came down significantly after HD yesterday as evidenced by ABG as well patient expressed her wish not to be intubated continue vanc/ertapenem/flagyl, pending sputum culture blood culture pending poor prognosis, palliative consulted HD per nephro (2) End-stage renal disease (ESRD) Current Visit: Yes Status: Chronic Assessment and Plan: Upon reviewing previous nephrology notes, it appears that she is getting intolerant to renal replacement therapy will certainly benefit from ongoing palliative discussion avoid metolazone HD per nephrology. Appreciate input. (3) Aspiration pneumonia Current Visit: Yes Status: Suspected Assessment and Plan: Recent sputum culture + for E. Coli and Proteus. continue abx as above speech eval yesterday, diet modified per rec (4) COPD (chronic obstructive pulmonary disease) Current Visit: No Status: Chronic Assessment and Plan: does not appear to be in exacerbation resume home inhalers Bronchodilators (5) Diabetes mellitus Current Visit: No Status: Chronic Assessment and Plan: She is clear for diet per speech Monitor blood glucose before meals and at bedtime on low-dose sliding scale coverage resume levemir if elevated (6) Hypertension Current Visit: No Status: Chronic Assessment and Plan: Holding off on home meds in view of borderline BP (7) Goals of care, counseling/discussion Current Visit: No Status: Acute Assessment and Plan: During the initial encounter, she apparently expressed her wish to be placed on ventilator if needed Her mental status improved after dialysis and she now confirms that she does not want to be intubated if her O2 requirement escalates. DVT Prophylaxis: Subcutaneous heparin - Time Spent with Patient Total time spent is greater than 50% in coordination of care (as documented) at patient's floor/unit and/or counseling patient: Plan of Care Discussed with: patient Internal Medicine: Result - Labs CBC & Chem 7: 08/14/18 05:38 08/14/18 05:38 Labs: Short CBC 08/14/18 Range/Units 05:38 WBC 8.4 (4.3-11.1) K/mcL Hgb 8.4 L (11.5-15.4) g/dL Hct 29.1 L (35.3-44.9) % Plt Count 127 L (140-400) K/mcL Neutrophils # 6.6 (1.6-8.9) K/mcL BMP 08/14/18 05:38 Sodium 134 L Potassium 4.7 Chloride 98 Carbon Dioxide 28 BUN 23 Creatinine 3.08 H Glucose 167 H Calcium 9.1 Liver Function 08/14/18 Range/Units 05:38 Total Bilirubin 0.7 (0.3-1.0) mg/dL AST 20 (13-39) Units/L ALT 10 (7-52) Units/L Alkaline Phosphatase 191 H (34-104) Units/L Albumin 2.9 L (3.5-5.7) g/dL - ABG Interpretation ABG results: ABG ABG pH 7.37 pH Units (7.32-7.45) 08/14/18 00:23 ABG pCO2 53 mmHg (35-45) H 08/14/18 00:23 ABG pO2 70 mmHg (85-104) L 08/14/18 00:23 ABG O2 Saturation 93 % (95-98) L 08/14/18 00:23 - Impressions Impressions Videofluoroscopic Swallow 08/13/18 14:46 IMPRESSION: Penetration with thin liquid. No evidence of aishwarya aspiration. Please see separate speech pathology report for full discussion of findings and recommendations. D/ / Asher Martin MD / Asher Martin MD Interpreting Provider: Asher Martin MD Chest X-Ray 08/13/18 23:33 IMPRESSION: Persistent congestive heart failure. D/ / 08/14/2018 05:34:30 Peter Todd MD / [facility] Interpreting Provider: Peter Todd MD Consult Discharge Plan - Plan Referrals: NONE,PCP [Primary Care Provider] - (1) Acute and chronic respiratory failure Qualifiers: Respiratory failure complication: hypoxia and hypercapnia Qualified Code(s): J96.21 - Acute and chronic respiratory failure with hypoxia; J96.22 - Acute and chronic respiratory failure with hypercapnia (3) Aspiration pneumonia Qualifiers: Aspiration pneumonia type: unspecified Laterality: right Lung location: lowe r lobe of lung Qualified Code(s): J69.0 - Pneumonitis due to inhalation of food and vomit (4) COPD (chronic obstructive pulmonary disease) Qualifiers: COPD type: unspecified COPD Qualified Code(s): J44.9 - Chronic obstructive pulmonary disease, unspecified (5) Diabetes mellitus Qualifiers: Diabetes mellitus type: type 2 Diabetes mellitus mcc insulin use: with mcc use Diabetes mellitus complication status: with skin complications Diabetes mellitus complication detail: with other skin complication Qualified Code(s): E11.628 - Type 2 diabetes mellitus with other skin complications; 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
[2018-08-14] MEDS: MetroNIDAZOLE 500 MG/100 ML 500 MG/100 ML BAG IVPB SCH ×3 (09:59→23:59)
[2018-08-14] MEDS: Calcium Acetate 667 MG CAPSULE PO SCH ×3 (09:59→18:24)
[2018-08-14] MEDS: Gabapentin 100 MG CAPSULE PO SCH ×3 (10:00→20:35)
[2018-08-14] MEDS: Aspirin Enteric Coated 81 MG Tablet PO SCH (10:00)
[2018-08-14] MEDS: Sucralfate 1 GM TABLET PO SCH ×4 (10:00→20:35)
[2018-08-14] MEDS: ARIPiprazole 10 MG TABLET PO SCH (10:00)
[2018-08-14] MEDS: (Colestipol Hcl [Colestid] 1 GM) PO SCH ×2 (10:01→20:37)
[2018-08-14] MEDS: Insulin LISPRO 300 UNITS/3 ML VIAL SQ SCH ×4 (10:40→20:36)
[2018-08-14] MEDS: Budesonide/Formoterol 160/4.5 1 PUFF INH IH SCH ×2 (11:06→20:39)
--- NOTE | 2018-08-14 12:53 | Palliative - Consult Note ---
Date of Encounter: 08/14/18 Time of Encounter: 12:50 - Assessment and Plan (1) Goals of care, counseling/discussion Current Visit: No Status: Acute Assessment and plan: Met with patient at the bedside and discussed goals of care. Pt is known to the palliative care team from her previous admission. She still lives at home, and r [facility] service 8 hours a day. She receives HD 3 days a week. She has 2 sons that live in the city. Discussed current clinical condition, trajectory of illness, overal poor prognosis and treatment options. Pt stated that she wants at this time a focus on comfort care, avoiding any invasive measures and any mechanical ventilation, including BiPAP. However, she would like to continue on current level of care, including HD for as long as it is offered. Discussed with pt about hospice care and the philosophy of hospice. Pt would like the added services that she can receive from hospice, but she is not ready for de- escalation of care. Patient remain consistent in her wishes as of our previous discussion. (2) Pain Current Visit: Yes Status: Acute Assessment and plan: patient has bilateral lower extremities stasis, and multiple wounds. recommend Oxycodone 10 mg q4hrs prn for pain. will need a more steady pain control once her need is determined. (3) Venous stasis dermatitis of both lower extremities Current Visit: No Status: Chronic Assessment and plan: continue wound management elevate legs (4) ESRD (end stage renal disease) on dialysis Current Visit: No Status: Chronic Assessment and plan: Pt not able to fully tolerate HD, but she is still wanting to continue. HD as per nephrology. (5) Dyspnea Current Visit: No Status: Acute Assessment and plan: Due to fluid overload vs pneumonia. Improved after HD on antibiotics vanc/ertapenem/flagyl, Recommend Morphine 5mg SL prn for dyspnea Qualifiers: Dyspnea type: shortness of breath Qualified Code(s): R06.02 - Shortness of breath; R06.00 - Dyspnea, unspecified; R06.01 - Orthopnea (6) Pneumonia Current Visit: No Status: Acute Assessment and plan: ABX treatment per primary team Qualifiers: Pneumonia type: due to unspecified organism Laterality: unspecified laterality Lung location: unspecified part of lung Qualified Code(s): J18.9 - Pneumonia, unspecified organism Palliative-CN HPI - Data of Consult Requesting Physician: Chad Law MD Primary Care Provider: PCP NONE - Consult Narrative History of present illness: Ms. Riley is a 63 year old female who presents to the ER tonight complaining of shortness of breath, swelling, and difficulty breathing. She was just discharged from the hospital almost 2 weeks ago. Since then, she has been unable to tolerate her full dialysis treatments. She has had to cut several dialysis treatments in half. Her last 2 dialysis treatments were cut prematurely. In the ER, she had imaging and routine labs performed. Imaging of her chest suggested CHF. She makes no urine. She was therefore admitted to hospitalist service with a consult to nephrology for dialysis. overnight pt was refusing BiPAP and oxygen, despite low O2 sat. Palliative consult was called to determine GOC. A the time of exam, pt was sitting on the chair, stating her breathing is better. She believes her admission was due to recurrent pneumonia. She complains of some pain on her legs and buttox, but states she does not let it bother her. she denies any other complains. CC: Chad Law MD - Time Spent with Patient Time: Total time spent is greater than 50% in coordination of care (as documented) at patient's floor/unit and/or counseling patient: Past Med Surg Social Fam HX - Past Medical History Medical history: atrial fibrillation, CHF, COPD, coronary artery disease, diabetes, dialysis, GI bleed, hyperlipidemia, hypertension, myocardial infarction, peripheral artery disease, renal disease Additional medical history: AV fistula for dialysis ++ Psychiatric history: anxiety, depression, schizophrenia, previous psychiatric hospitalization - Past Surgical History Surgical History: angioplasty/stent, appendectomy, cholecystectomy, coronary bypass (CABG), hysterectomy, knee replacement, other, IVC filter Additional surgical history: left arm fistulogram with covered stent placement left basilic vein 2016. kidney stones 1996. double Bypass 1998. stents x5 unsure date. right wrist 2017 - Social History Smoking Status: Current every day smoker Smokeless Tobacco Status: No Alcohol use: none Drug use: none - Family History Father Family Member Ethnicity: Non- Living Status: Hx Family Cardiac Disorders: Yes Hx Family Respiratory Disorders: Yes Hx Family Cancer: Yes (Polycythemia) Hx Family Endocrine Disorder: Yes (DM) Mother Family Member Ethnicity: Non- Living Status: Still Living Hx Family Cardiac Disorders: Yes Hx Family Respiratory Disorders: Yes (asthma, COPD) Brother Adopted: No Family Member Ethnicity: Non- Living Status: Still Living Hx Family Cardiac Disorders: No Hx Family Respiratory Disorders: No Hx Family Cancer: No Hx Family GI Disorders: No Hx Family Endocrine Disorder: No Hx Family Neuromuscular Disorders: No Hx Family Neurologic Disorders: No Hx Family HEENT Disorders: No Hx Family Autoimmune Disorders: No Sister Adopted: No Family Member Ethnicity: Non- Living Status: Still Living Hx Family Cardiac Disorders: Yes Hx Family Respiratory Disorders: No Hx Family Cancer: No Hx Family GI Disorders: No Hx Family Endocrine Disorder: Yes Hx Family Neuromuscular Disorders: No Hx Family Neurologic Disorders: No Hx Family HEENT Disorders: No Hx Family Autoimmune Disorders: No Medications and Allergies Colestipol HCl [Colestid] 1 gm PO BID 06/12/15 [History] Calcium Acetate [Phos-LO] 1,334 mg PO TIDWM 09/06/16 [History] ARIPiprazole [Abilify] 10 mg PO DAILY 09/13/17 [History] Aspirin Enteric Coated [Aspirin EC] 81 mg PO DAILY 09/13/17 [History] Budesonide/Formoterol 160/4.5 [Symbicort 160/4.5] 2 puff IH BIDR 09/13/17 [History] Cholecalciferol (Vitamin D3) [Vitamin D3] 50,000 unit PO TH 09/13/17 [History] Sevelamer [Renvela] 800 mg PO DAILY 09/13/17 [History] Albuterol Neb [AccuNeb] 0.63 mg IH Q6H PRN 10/18/17 [History] amLODIPine [Norvasc] 5 mg PO DAILY 12/30/17 [History] Clopidogrel [Plavix] 75 mg PO DAILY 02/03/18 [History] Rosuvastatin Calcium [Crestor] 20 mg PO DAILY 02/27/18 [History] Amitriptyline [Elavil] 50 mg PO HS tablet 03/24/18 [Rx] Renal Vitamin [Renal Caps Softgel] 1 mg PO DAILY capsule 04/17/18 [Rx] Carvedilol 12.5 mg PO BID 04/28/18 [History] Darbepoetin [Aranesp] 60 mcg SQ FR 04/28/18 [History] Insulin DETEMIR [Levemir] 34 unit SQ HS 04/28/18 [History] Insulin LISPRO [HumaLOG] 2 - 10 units SQ TIDWM 04/28/18 [History] Lactobacillus Acidophilus/Fos [Acidophilus Probiotic Tablet] 1 tab PO DAILY 04/28/18 [History] Omeprazole [PriLOSEC] 20 mg PO DAILY 04/28/18 [History] Isosorbide MONOnitrate (24 HR) [Imdur] 30 mg PO DAILY #30 tab.er.24h 07/04/18 [Rx] Benzonatate [Tessalon] 200 mg PO TID PRN 10 Days #30 capsule 07/22/18 [Rx] Gabapentin [Neurontin] 100 mg PO TID 4 Days #12 capsule 07/22/18 [Rx] OxyCODONE/APAP 5/325 [Percocet 5/325 MG] 1 each PO Q8HR PRN 2 Days #6 tablet 07/22/18 [Rx] Ertapenem [INVanz] 500 mg IVPB DAILY #7 vial 07/26/18 [Rx] Metoclopramide [Reglan] 5 mg PO DAILY 08/13/18 [History] Sucralfate [Carafate] 1 gm PO QIDAC 08/13/18 [History] traZODone [TraZODone] 50 mg PO HS 08/13/18 [History] Allergy/AdvReac Type Severity Reaction Status Date / Time piperacillin [From Zosyn] Allergy Anaphylaxis Verified 07/05/18 10:03 tazobactam [From Zosyn] Allergy Anaphylaxis Verified 07/05/18 10:03 - Constitutional Constitutional ROS PAL: fatigue, no fever(s) - EENT Ears, nose, mouth, throat: no dysphagia - Cardiovascular Cardiovascular ROS: edema, no chest pain - Respiratory Respiratory: cough, dyspnea - Gastrointestinal Gastrointestinal: no abdominal pain, no change in bowel habits, no fecal incontinence, no melena - Genitourinary Palliative ROS female: no dysuria - Musculoskeletal Musculoskeletal ROS IM: no arthralgias - Integumentary ROS Integumentary: non-healing lesions, wounds Palliative Care-Exam - Constitutional Vitals: Temp Pulse Resp BP Pulse Ox 97.8 F 93 17 109/91 96 08/14/18 11:52 08/14/18 11:52 08/14/18 11:52 08/14/18 11:52 08/14/18 11:52 Exam: General appearance: Present: cooperative, mild distress, morbidly obese, answers questions appropriately - Head Head exam: Present: atraumatic, normal inspection - Eye Eye exam: Present: EOMI, PERRL. Absent: scleral icterus Pupils: Present: normal accommodation - ENT ENT exam: Present: mucous membranes dry, normal exam, normal oropharynx - Neck Neck exam general surgery: Present: full ROM, supple. Absent: tenderness, nuchal rigidity, thyromegaly - Respiratory Respiratory exam: Present: reduced air entry, rales (most prominent in right base), wheezes. Absent: chest wall tenderness - Cardiovascular Cardiovascular exam: Present: distant heart sounds, RRR, +S1, +S2. Absent: diastolic murmur, systolic murmur - GI/Abdominal GI/Abdominal exam: Present: soft. Absent: guarding, hepatomegaly, rebound, splenomegaly, tenderness - Extremities Exam Extremities exam: Present: pedal edema (4+ with evidence of anasarca), tenderness, warm, radial pulses palpable and symmetrical. Absent: calf tenderne ss, joint swelling Additional comments: several chronic, old open sores on her legs Internal Medicine - CN: Reslt - Labs CBC & Chem 7: 08/14/18 05:38 08/14/18 05:38 Labs: Short CBC 08/14/18 Range/Units 05:38 WBC 8.4 (4.3-11.1) K/mcL Hgb 8.4 L (11.5-15.4) g/dL Hct 29.1 L (35.3-44.9) % Plt Count 127 L (140-400) K/mcL Neutrophils # 6.6 (1.6-8.9) K/mcL BMP 08/14/18 05:38 Sodium 134 L Potassium 4.7 Chloride 98 Carbon Dioxide 28 BUN 23 Creatinine 3.08 H Glucose 167 H Calcium 9.1 Liver Function 08/14/18 Range/Units 05:38 Total Bilirubin 0.7 (0.3-1.0) mg/dL AST 20 (13-39) Units/L ALT 10 (7-52) Units/L Alkaline Phosphatase 191 H (34-104) Units/L Albumin 2.9 L (3.5-5.7) g/dL - ABG Interpretation ABG results: ABG ABG pH 7.37 pH Units (7.32-7.45) 08/14/18 00:23 ABG pCO2 53 mmHg (35-45) H 08/14/18 00:23 ABG pO2 70 mmHg (85-104) L 08/14/18 00:23 ABG O2 Saturation 93 % (95-98) L 08/14/18 00:23 - Impressions Impressions Videofluoroscopic Swallow 08/13/18 14:46 IMPRESSION: Penetration with thin liquid. No evidence of aishwarya aspiration. Please see separate speech pathology report for full discussion of findings and recommendations. D/ / Asher Martin MD / Asher Martin MD Interpreting Provider: Asher Martin MD Chest X-Ray 08/13/18 23:33 IMPRESSION: Persistent congestive heart failure. D/ / 08/14/2018 05:34:30 Peter Todd MD / [facility] Interpreting Provider: Peter Todd MD Consult Discharge Plan - Plan Referrals: NONE,PCP [Primary Care Provider] - Palliative Quality Palliative Quality: Screen for Code Status: Yes, Screen for Goals of Care: Yes, Screen for Pain: Yes, If Pain Regimen Started, Initiate Bowel Regimen: Yes, Screen for Nausea/Vomitting: Yes Code Status: 08/14/18 12:45 Resuscitation Status: Active [RES] Routine Comment: Resuscitation Status: DNR-Comfort Care
[2018-08-14] MEDS: *HR* HYDROcodone/Acet 5/325 mg TABLET PO PRN (18:28)
[2018-08-15] MEDS: Ipratropium/Albuterol Neb 3 ML IH SCH ×6 (00:13→19:43)
[2018-08-15 05:10] LABS: Eosinophils % 2.5 %; Immature Granulocytes % 0.5 % (0-4)
[2018-08-15 05:12] LABS: Basophils % 0.6 %; Eosinophils # 0.2 K/mcL (0.0-0.6); Hematocrit 29.5 % (35.3-44.9); Hemoglobin 8.4 g/dL (11.5-15.4); Lymphocytes # 0.9 K/mcL (0.6-4.6); Lymphocytes % 14.1 %; Mean Corpuscular HGB Conc 28.5 g/dL (31.6-35.5); Mean Corpuscular Hemoglobin 23.1 pg (28.0-33.3); Mean Platelet Volume 11.9 fL (9.4-12.4); Monocytes # 0.6 K/mcL (0.0-1.3); Monocytes % 8.7 %; Neutrophils # 4.6 K/mcL (1.6-8.9); Platelet Count 127 K/mcL (140-400); Red Blood Count 3.64 M/mcL (3.82-4.97); Red Cell Distribution Width 18.9 % (11.5-14.5); Segmented Neutrophils % 73.6 %
[2018-08-15 05:25] LABS: Potassium 4.6 mEq/L (3.5-5.1)
[2018-08-15 05:47] LABS: Hypochromasia Present (Not Present); Platelet Estimate Slight Decrease (Normal)
[2018-08-15 05:48] LABS: Anisocytosis 1+ (Not Present)
[2018-08-15] MEDS: *HR* OxyCODONE Immed Rel 5 MG TABLET PO PRN ×2 (06:18→18:18)
[2018-08-15] MEDS: Sucralfate 1 GM TABLET PO SCH ×4 (06:18→21:41)
[2018-08-15] MEDS: *HR* Heparin 5,000 UNIT/ML VIAL SQ SCH ×3 (06:18→21:41)
[2018-08-15] MEDS ORDERED: 0.9 % Sodium Chloride 250 ML IVC PRN (06:19)
[2018-08-15] MEDS: Budesonide/Formoterol 160/4.5 1 PUFF INH IH SCH ×2 (07:35→19:43)
[2018-08-15] MEDS ORDERED: 0.9 % Sodium Chloride 2,000 ML ONE (08:19)
[2018-08-15] MEDS: Insulin LISPRO 300 UNITS/3 ML VIAL SQ SCH ×4 (08:26→21:44)
[2018-08-15] MEDS: Gabapentin 100 MG CAPSULE PO SCH ×3 (08:27→21:41)
[2018-08-15] MEDS: Calcium Acetate 667 MG CAPSULE PO SCH ×3 (08:27→16:52)
[2018-08-15] MEDS: Aspirin Enteric Coated 81 MG Tablet PO SCH (08:27)
[2018-08-15] MEDS: ARIPiprazole 10 MG TABLET PO SCH (08:27)
[2018-08-15] MEDS: MetroNIDAZOLE 500 MG/100 ML 500 MG/100 ML BAG IVPB SCH (08:28)
[2018-08-15] MEDS: (Colestipol Hcl [Colestid] 1 GM) PO SCH (08:56)
--- NOTE | 2018-08-15 14:34 | Palliative Progress Note ---
Date of Encounter: 08/15/18 Time of Encounter: 10:00 - Assessment and plan (1) Goals of care, counseling/discussion Current Visit: No Status: Acute Assessment and plan: Discussed again with pt about her medical condition, more specifically abut the fact that her body is not tolerating HD very well. She is aware, but wants to co ntinue for as long as possible. Called son Leo for a family meeting, he requested to be called back after 3:30 pm. Palliative care will follow up. (2) Pain Current Visit: Yes Status: Acute Assessment and plan: patient has bilateral lower extremities stasis, and multiple wounds. recommend Oxycodone 10 mg q4hrs prn for pain. Pt was also previously started on [place] q6hrs prn for moderate pain. pt required 1 dose of oxycodone and one of norco will d/c oxycodone and continue [place]. will need a more steady pain control once her need is determined. (3) Venous stasis dermatitis of both lower extremities Current Visit: No Status: Chronic Assessment and plan: continue wound management elevate legs (4) ESRD (end stage renal disease) on dialysis Current Visit: No Status: Chronic Assessment and plan: Pt not able to fully tolerate HD, but she is still wanting to continue. HD as per nephrology. (5) Dyspnea Current Visit: No Status: Acute Assessment and plan: Due to fluid overload vs pneumonia. Improved after HD on antibiotics vanc/ertapenem/flagyl, Qualifiers: Dyspnea type: shortness of breath Qualified Code(s): R06.02 - Shortness of breath; R06.00 - Dyspnea, unspecified; R06.01 - Orthopnea (6) Pneumonia Current Visit: No Status: Acute Qualifiers: Pneumonia type: due to unspecified organism Laterality: unspecified laterality Lung location: unspecified part of lung Qualified Code(s): J18.9 - Pneumonia, unspecified organism - Time Spent With Patient Total time spent is greater than 50% in coordination of care (as documented) at patient's floor/unit and/or counseling patient: Greater than 35 minutes - Subjective Interval history: Pt was seen in HD, complaining of feeling tired. no chest pain or SOB - Constitutional Vitals: Abnormal lab results RBC 3.64 M/mcL (3.82-4.97) L 08/15/18 04:41 Hgb 8.4 g/dL (11.5-15.4) L 08/15/18 04:41 Hct 29.5 % (35.3-44.9) L 08/15/18 04:41 MCV 81.0 fL (83.0-100.0) L 08/15/18 04:41 MCH 23.1 pg (28.0-33.3) L 08/15/18 04:41 MCHC 28.5 g/dL (31.6-35.5) L 08/15/18 04:41 RDW 18.9 % (11.5-14.5) H 08/15/18 04:41 Plt Count 127 K/mcL (140-400) L 08/15/18 04:41 Platelet Estimate Slight Decrease (Normal) L 08/15/18 04:41 Hypochromasia Present (Not Present) A 08/15/18 04:41 Anisocytosis 1+ (Not Present) A 08/15/18 04:41 ABG pCO2 53 mmHg (35-45) H 08/14/18 00:23 ABG pO2 70 mmHg (85-104) L 08/14/18 00:23 ABG HCO3 30 mEq/L (21-27) H 08/14/18 00:23 ABG Total CO2 32 mEq/L (20-26) H 08/14/18 00:23 ABG O2 Saturation 93 % (95-98) L 08/14/18 00:23 ABG Base Excess 4 mEq/L (-2 to 3) H 08/14/18 00:23 Sodium 134 mEq/L (136-145) L 08/15/18 04:41 BUN 32 mg/dL (8-23) H 08/15/18 04:41 Creatinine 3.67 mg/dL (0.60-1.20) H 08/15/18 04:41 Est GFR ( Amer) 15 (> 60) L 08/15/18 04:41 Est GFR (Non-Af Amer) 12 (> 60) L 08/15/18 04:41 Glucose 157 mg/dL (70-105) H 08/15/18 04:41 POC Glucose 152 mg/dL (70-99) H 08/15/18 11:06 Hemoglobin A1c 6.5 % (-5.6) H 08/13/18 00:52 Alkaline Phosphatase 191 Units/L (34-104) H 08/14/18 05:38 B-Natriuretic Peptide 704 pg/mL (Less than 100) H 08/13/18 00:52 Serum Total Protein 6.1 g/dL (6.4-8.9) L 08/14/18 05:38 Albumin 2.9 g/dL (3.5-5.7) L 08/14/18 05:38 Albumin/Globulin Ratio 0.9 (1.1-2.2) L 08/14/18 05:38 Exam: General appearance: Present: cooperative, mild distress, morbidly obese, answers questions appropriately - Head Head exam: Present: atraumatic, normal inspection - Eye Eye exam: Present: EOMI, PERRL. Absent: scleral icterus Pupils: Present: normal accommodation - ENT ENT exam: Present: mucous membranes dry, normal exam, normal oropharynx - Neck Neck exam general surgery: Present: full ROM, supple. Absent: tenderness, nuchal rigidity, thyromegaly - Respiratory Respiratory exam: Present: reduced air entry, rales (most prominent in right base), wheezes. Absent: chest wall tenderness - Cardiovascular Cardiovascular exam: Present: distant heart sounds, RRR, +S1, +S2. Absent: diastolic murmur, systolic murmur - GI/Abdominal GI/Abdominal exam: Present: soft. Absent: guarding, hepatomegaly, rebound, splenomegaly, tenderness - Extremities Exam Extremities exam: Present: pedal edema (4+ with evidence of anasarca), tenderness, warm, radial pulses palpable and symmetrical. Absent: calf tenderness, joint swelling Additional comments: several chronic, old open sores on her legs, clean bandages in place. Palliative Quality Palliative Quality: Screen for Code Status: Yes, Screen for Goals of Care: Yes, Screen for Pain: Yes, If Pain Regimen Started, Initiate Bowel Regimen: Yes, Screen for Nausea/Vomitting: Yes Code Status: 08/14/18 12:45 Resuscitation Status: Active [RES] Routine Comment: Resuscitation Status: DNR-Comfort Care - Labs CBC & Chem 7: 08/15/18 04:41 08/15/18 04:41 Labs: Laboratory Results - last 24 hr 08/14/18 08/14/18 08/14/18 14:21 16:08 19:59 WBC RBC Hgb Hct MCV MCH MCHC RDW Plt Count MPV Immature Gran % Seg Neutrophils % Lymphocytes % Monocytes % Eosinophils % Basophils % Neutrophils # Lymphocytes # Monocytes # Eosinophils # Basophils # Platelet Estimate Hypochromasia Anisocytosis Sodium Potassium Chloride Carbon Dioxide BUN Creatinine Est GFR ( Amer) Est GFR (Non-Af Amer) BUN/Creatinine Ratio Glucose POC Glucose 232 H 222 H 210 H Calculated Osmolality Calcium Random Vancomycin 08/15/18 08/15/18 08/15/18 04:41 04:41 04:41 WBC 6.3 RBC 3.64 L Hgb 8.4 L Hct 29.5 L MCV 81.0 L MCH 23.1 L MCHC 28.5 L RDW 18.9 H Plt Count 127 L MPV 11.9 Immature Gran % 0.5 Seg Neutrophils % 73.6 Lymphocytes % 14.1 Monocytes % 8.7 Eosinophils % 2.5 Basophils % 0.6 Neutrophils # 4.6 Lymphocytes # 0.9 Monocytes # 0.6 Eosinophils # 0.2 Basophils # 0.0 Platelet Estimate Slight Decrease L Hypochromasia Present A Anisocytosis 1+ A Sodium 134 L Potassium 4.6 Chloride 98 Carbon Dioxide 29 BUN 32 H Creatinine 3.67 H Est GFR ( Amer) 15 L Est GFR (Non-Af Amer) 12 L BUN/Creatinine Ratio 9 Glucose 157 H POC Glucose Calculated Osmolality 288 Calcium 9.0 Random Vancomycin 17 08/15/18 11:06 WBC RBC Hgb Hct MCV MCH MCHC RDW Plt Count MPV Immature Gran % Seg Neutrophils % Lymphocytes % Monocytes % Eosinophils % Basophils % Neutrophils # Lymphocytes # Monocytes # Eosinophils # Basophils # Platelet Estimate Hypochromasia Anisocytosis Sodium Potassium Chloride Carbon Dioxide BUN Creatinine Est GFR ( Amer) Est GFR (Non-Af Amer) BUN/Creatinine Ratio Glucose POC Glucose 152 H Calculated Osmolality Calcium Random Vancomycin - Impressions Impressions Chest X-Ray 08/13/18 00:36 IMPRESSION: 1. Cardiomegaly with diffuse ground-glass opacities likely representing edema. D/ / 08/13/2018 06:29:26 Tracy Davey MD / [facility] Interpreting Provider: Tracy Davey MD - ABG Interpretation ABG results: ABG ABG pH 7.37 pH Units (7.32-7.45) 08/14/18 00:23 ABG pCO2 53 mmHg (35-45) H 08/14/18 00:23 ABG pO2 70 mmHg (85-104) L 08/14/18 00:23 ABG O2 Saturation 93 % (95-98) L 08/14/18 00:23 Consult Discharge Plan - Plan Referrals: NONE,PCP [Primary Care Provider] -
--- NOTE | 2018-08-15 15:22 | Electrocardiograph Report ---
[place] [id number] Test Date: 2018-08-13 Pat Name: Lynnette Riley Department: EXAM16 Room: 2NE28 Gender: F Bilingual Patient Support Caseworker: : [id number] Requested By: Marlin Mejia Order Number: [id number] Reading MD: Laisha Shepherd Measurements Intervals [place] Rate: 91 P: RI: QRS: 91 QRSD: 93 T: 43 QT: 365 QTc: 450 Interpretive Statements Atrial fibrillation Right axis deviation Low voltage, extremity and precordial leads Electronically Signed On 08-15-2018 15:21:02 EST by Laisha Shepherd
--- NOTE | 2018-08-15 17:36 | Nephrology Progress Note ---
Date of Encounter: 08/15/18 Time of Encounter: 12:00 - Assessment and Plan (1) Acute and chronic respiratory failure Current Visit: Yes Status: Acute Improving with UF Continue fluid restriction Qualifiers: Respiratory failure complication: hypoxia and hypercapnia Qualified Code(s): J96.21 - Acute and chronic respiratory failure with hypoxia; J96.22 - Acute and chronic respiratory failure with hypercapnia (2) Acute CHF Current Visit: Yes Status: Acute See above Qualifiers: Heart failure type: unspecified Qualified Code(s): I50.9 - Heart failure, unspecified (3) Type 2 diabetes mellitus with ESRD (end-stage renal disease) Current Visit: No Status: Chronic (4) End-stage renal disease on hemodialysis Current Visit: No Status: Chronic Continue HD with UF goal of 4-5kg, will plan another session tomorrow as well Lytes stable, sodium at 134 (5) Anemia in chronic kidney disease, on chronic dialysis Current Visit: No Status: Chronic Hgb noted at 8.4, will monitor (6) Volume overload Current Visit: Yes Status: Acute Improving with HD sessions Qualifiers: Hypervolemia type: unspecified Qualified Code(s): E87.70 - Fluid overload, unspecified Subjective Principal diagnosis: ESRD, Shortness of breath Interval history: Interim events noted, pt seen and examined on HD resting but arousable. Objective - Vital Signs Vital signs: Vital Signs Temp Pulse Resp BP Pulse Ox 08/15/18 16:00 97.6 F 101 14 112/62 100 08/15/18 15:25 16 90 08/15/18 12:55 97.9 F 16 112/53 08/15/18 12:35 120/56 08/15/18 12:20 121/97 08/15/18 12:05 113/56 08/15/18 11:50 121/64 08/15/18 11:35 114/60 08/15/18 11:20 100/57 08/15/18 11:05 97/52 08/15/18 10:50 102/51 08/15/18 10:35 96/53 08/15/18 10:20 98/49 08/15/18 10:05 104/49 08/15/18 09:50 97/48 08/15/18 09:35 99/40 08/15/18 09:20 116/60 08/15/18 09:05 114/64 08/15/18 08:50 97.8 F 16 114/49 08/15/18 08:00 97.3 F L 81 14 117/74 96 08/15/18 07:35 16 97 08/15/18 05:54 96 08/15/18 04:06 14 99 08/15/18 03:13 96.0 F L 78 14 102/86 100 08/15/18 00:15 14 100 08/14/18 22:10 97.5 F L 80 15 113/54 96 08/14/18 20:50 96 08/14/18 20:39 16 106/49 100 Intake and Output 08/15/18 08/15/18 08/15/18 07:59 15:59 23:59 Intake Total 100 / 100 600 / 600 Output Total 5100 / 5100 Balance 100 / 100 -4500 / -4500 Intake: IV Fluids 100 / 100 Flagyl Premix 500 MG/100 ML 500 100 / 100 mg In 100 ml @ 100 mls/hr IVPB Q8HR [facility] Rx#:[id number] Oral 0 / 0 Intake, Rinseback and Flushes 600 / 600 Output: Total Dialysis (HD) Output 5100 / 5100 Other: Percent of Meal Consumed 0% Weight 125.1 kg Blood Glucose* 152 278 Hemodialysis Net Fluid Removed 4500 (mL) Patient Weight 08/15/18 23:59 Weight 125.1 kg - General Appearance General appearance: Present: chronically ill EENT: Present: ATNC, mucous membranes moist Neck: Present: no JVD, supple Respiratory: Present: course breath sounds Cardiology: Present: edema, normal S1, normal S2 Dialysis Vascular Access: Arteriovenous Fistula thrill: Yes bruit: Yes Gastrointestinal: Present: no tenderness, no guarding, obese Integumentary: Present: warm and dry, chronic venous stasis Neurologic: Present: disoriented Musculoskeletal: Present: no deformities Psychiatric: Present: mood/affect appropriate - Lab 08/16/18 06:56 08/16/18 06:56 Most recent lab results ABG pH 7.37 pH Units (7.32-7.45) 08/14/18 00:23 ABG pCO2 53 mmHg (35-45) H 08/14/18 00:23 ABG pO2 70 mmHg (85-104) L 08/14/18 00:23 ABG HCO3 30 mEq/L (21-27) H 08/14/18 00:23 ABG O2 Saturation 93 % (95-98) L 08/14/18 00:23 Calcium 9.0 mg/dL (8.6-10.3) 08/15/18 04:41 Magnesium 2.0 mg/dL (1.6-2.6) 08/14/18 05:38 Consult Discharge Plan - Plan Referrals: NONE,PCP [Primary Care Provider] -
--- NOTE | 2018-08-15 19:22 | Internal Med Progress Note ---
Hospitalist Progress Note - Encounter Date of Encounter: 08/15/18 Time of Encounter: 19:20 - Subjective Interval History: Pt denies fever, chills, N/V, or diarrhea. She denies chest pain or SOB. She denies abdominal pain. - Exam Vitals: Temp Pulse Resp BP Pulse Ox 97.6 F 101 14 112/62 100 08/15/18 16:00 08/15/18 16:00 08/15/18 16:00 08/15/18 16:00 08/15/18 16:00 Exam: Exam: General: Alert and oriented, mild distress. Cardiovascular:Normal S1 & S2 Lungs: bilateral rhonchi Abdomen:Soft, non-tender, no rigidity. Extremities: Chronic, old open wounds on her legs bilaterally Neurological: No focal deficits Skin: warm, dry, no bumps or rash - Assessment and Plan (1) COPD (chronic obstructive pulmonary disease) Current Visit: No Status: Chronic Assessment and Plan: does not appear to be in exacerbation Home inhalers resumed Bronchodilators (2) Acute and chronic respiratory failure Current Visit: Yes Status: Acute Assessment and Plan: suspect fluid overload as main etiology +/- aspiration pneumonia O2 requirement came down significantly after HD yesterday as evidenced by ABG as well patient expressed her wish not to be intubated continue vanc/ertapenem/flagyl, pending sputum culture blood culture pending poor prognosis, palliative consulted HD per nephro (3) Hypertension Current Visit: No Status: Chronic Assessment and Plan: Holding off on home meds. BP meds stable (4) End-stage renal disease (ESRD) Current Visit: Yes Status: Chronic Assessment and Plan: Upon reviewing previous nephrology notes, it appears that she is getting i ntolerant to renal replacement therapy will certainly benefit from ongoing palliative discussion avoid metolazone HD per nephrology. Appreciate input. HD 08/15/2018. (5) Diabetes mellitus Current Visit: No Status: Chronic Assessment and Plan: She is clear for diet per speech Monitor blood glucose before meals and at bedtime on low-dose sliding scale coverage resume levemir if elevated (6) Aspiration pneumonia Current Visit: Yes Status: Suspected Assessment and Plan: Recent sputum culture + for E. Coli and Proteus. continue Ertapenem speech eval yesterday, diet modified per rec DVT Prophylaxis: Subcutaneous heparin - Summary of Assessment and Plan Summary of Assessment and Plan: History of present illness: Dr. Combs Ms. Riley is a 63 year old female who presents to the ER tonight complaining of shortness of breath, swelling, and difficulty breathing. She was just discharged from the hospital almost 2 weeks ago. Since then, she has been unable to tolerate her full dialysis treatments. She has had to cut several dialysis treatments in half. Her last 2 dialysis treatments were cut prematurely. In the ER, she had imaging and routine labs performed. Imaging of her chest suggested CHF. She makes no urine. She was therefore admitted to hospitalist service with a consult to nephrology for dialysis. Upon my assessment of the patient, she is somnolent but easily arousable and coherent. She is quite dyspneic and has audible gurgling sounds in her throat. She appears to be unable to protect her airway. She complains of some worsening dyspnea, subjective fevers, extreme fatigue, and worsening weight gain and edema. She is hypoxemic and is working hard to breathe. Clinically, she has evidence of anasarca, increased work of breathing, and several open chronic wounds in her legs. I reviewed her old records and note that she had sputum culture positive just a few weeks ago for Escherichia coli and Proteus. I then proceeded to view her x-ray, and I am concerned that she is likely aspirating and suffering from aspiration pneumonia in addition to CHF. After initial assessment above, I had a detailed talk with patient about CODE STATUS as I am concerned she may likely need an airway/ET tube here in the coming hours. She requests to be DNR Arrest but she is okay with short-term intubation. Given her suspected aspiration and concern for inability to protect her airway, I will keep her nothing by mouth and ask speech therapy to see her in consultation. I am hopeful that with dialysis and fluid removal, she will be breathing better. However, if she fails to improve and/or decompensate, she will need urgent intubation and mechanical ventilation. I explained all this to the patient and, again, she is agreeable to short-term intubation. - Time Spent with Patient Total time spent is greater than 50% in coordination of care (as documented) at patient's floor/unit and/or counseling patient: less than 15 minutes Plan of Care Discussed with: patient Internal Medicine: Result - Labs CBC & Chem 7: 08/15/18 04:41 08/15/18 04:41 Labs: Short CBC 08/15/18 Range/Units 04:41 WBC 6.3 (4.3-11.1) K/mcL Hgb 8.4 L (11.5-15.4) g/dL Hct 29.5 L (35.3-44.9) % Plt Count 127 L (140-400) K/mcL Neutrophils # 4.6 (1.6-8.9) K/mcL BMP 08/15/18 04:41 Sodium 134 L Potassium 4.6 Chloride 98 Carbon Dioxide 29 BUN 32 H Creatinine 3.67 H Glucose 157 H Calcium 9.0 - ABG Interpretation ABG results: ABG ABG pH 7.37 pH Units (7.32-7.45) 08/14/18 00:23 ABG pCO2 53 mmHg (35-45) H 08/14/18 00:23 ABG pO2 70 mmHg (85-104) L 08/14/18 00:23 ABG O2 Saturation 93 % (95-98) L 08/14/18 00:23 - Impressions Impressions Chest X-Ray 08/13/18 00:36 IMPRESSION: 1. Cardiomegaly with diffuse ground-glass opacities likely representing edema. D/ / 08/13/2018 06:29:26 Tracy Davey MD / [facility] Interpreting Provider: Tracy Davey MD Consult Discharge Plan - Plan Referrals: NONE,PCP [Primary Care Provider] - (1) COPD (chronic obstructive pulmonary disease) Qualifiers: COPD type: unspecified COPD Qualified Code(s): J44.9 - Chronic obstructive pulmonary disease, unspecified (2) Acute and chronic respiratory failure Qualifiers: Respiratory failure complication: hypoxia and hypercapnia Qualified Code(s): J96.21 - Acute and chronic respiratory failure with hypoxia; J96.22 - Acute and chronic respiratory failure with hypercapnia (3) Hypertension Qualifiers: Hypertension type: essential hypertension Qualified Code(s): I10 - Essential (primary) hypertension (5) Diabetes mellitus Qualifiers: Diabetes mellitus type: type 2 Diabetes mellitus assisted insulin use: with assisted use Diabetes mellitus complication status: with skin complications Diabetes mellitus complication detail: with other skin complication Qualified Code(s): E11.628 - Type 2 diabetes mellitus with other skin complications; Z79.4 - retirement (current) use of insulin (6) Aspiration pneumonia Qualifiers: Aspiration pneumonia type: unspecified Laterality: right Lung location: lower lobe of lung Qualified Code(s): J69.0 - Pneumonitis due to inhalation of food and vomit
[2018-08-16] MEDS: (Colestipol Hcl [Colestid] 1 GM) PO SCH ×3 (01:26→21:33)
[2018-08-16] MEDS: Ipratropium/Albuterol Neb 3 ML IH SCH ×6 (02:13→20:28)
[2018-08-16] MEDS: *HR* Heparin 5,000 UNIT/ML VIAL SQ SCH ×3 (05:42→21:33)
[2018-08-16 07:16] LABS: Mean Corpuscular Volume 80.3 fL (83.0-100.0)
[2018-08-16 07:17] LABS: Hematocrit 28.5 % (35.3-44.9); Hemoglobin 8.1 g/dL (11.5-15.4); Mean Corpuscular HGB Conc 28.4 g/dL (31.6-35.5); Mean Corpuscular Hemoglobin 22.8 pg (28.0-33.3); Mean Platelet Volume 11.7 fL (9.4-12.4); Platelet Count 148 K/mcL (140-400); Red Blood Count 3.55 M/mcL (3.82-4.97); Red Cell Distribution Width 18.7 % (11.5-14.5)
[2018-08-16] MEDS: Budesonide/Formoterol 160/4.5 1 PUFF INH IH SCH ×2 (07:30→20:28)
[2018-08-16 07:35] LABS: Calcium 8.9 mg/dL (8.6-10.3); Potassium 4.3 mEq/L (3.5-5.1)
[2018-08-16] MEDS ORDERED: Aminoglycoside Consult 1 EACH MC ONE (07:47)
[2018-08-16] MEDS ORDERED: 0.9 % Sodium Chloride 2,000 ML ONE (08:25)
[2018-08-16] MEDS ORDERED: 0.9 % Sodium Chloride 250 ML IVC PRN (08:40)
[2018-08-16] MEDS ORDERED: 0.9 % Sodium Chloride 1,000 ML PRIME SCH (08:45)
[2018-08-16] MEDS: Aspirin Enteric Coated 81 MG Tablet PO SCH (08:47)
[2018-08-16] MEDS: Insulin LISPRO 300 UNITS/3 ML VIAL SQ SCH ×4 (08:48→21:35)
[2018-08-16] MEDS: Sucralfate 1 GM TABLET PO SCH ×4 (08:48→21:33)
[2018-08-16] MEDS: Calcium Acetate 667 MG CAPSULE PO SCH ×3 (08:48→17:10)
[2018-08-16] MEDS: Gabapentin 100 MG CAPSULE PO SCH ×3 (08:48→21:33)
[2018-08-16] MEDS: ARIPiprazole 10 MG TABLET PO SCH (08:48)
--- NOTE | 2018-08-16 11:41 | Infectious Disease Consult ---
Date of Encounter: 08/16/18 Time of Encounter: 11:12 Assessment and Plan (1) Acute and chronic respiratory failure Status: Acute Assessment and plan: - Acute and chronic respiratory failure which appears to have resolved - Currently tolerating baseline oxygen supplementation - Most likely etiology is fluid overload secondary to incomplete hemodialysis - There is a concern of aspiration pneumonia. - Patient does not meet SIRS criteria with normal vital signs and no leukocytosis - BNP of 704 - Sputum culture on 07/18/18 was positive for ESBL Escherichia coli and Proteus. Patient did complete a course of ertapenem 14 days per previous ID recommen dations. Completed 08/02/18 - Blood cultures 08/13/18 negative 2 - Chest x-ray on presentation showed evidence of pulmonary edema without obvious consolidation - Barium swallow did show penetration with thin liquids on 08/13/18 - Currently on ertapenem, day 4 - Previously on flagyl, vancomycin, ertapenem Plan - Given that patient is nonseptic and she is back to baseline oxygen requirements, we feel this is most likely secondary to volume overload with CHF/ESRD and less likely aspiration. There is no radiologic evidence of a pneumonia on CXR. We will obtain a CT scan to rule out consolidations. - If CT is negative for consolidation, will discontinue Abx. Qualifiers: Respiratory failure complication: hypoxia and hypercapnia Qualified Code(s): J96.21 - Acute and chronic respiratory failure with hypoxia; J96.22 - Acute and chronic respiratory failure with hypercapnia (2) (HFpEF) heart failure with preserved ejection fraction Status: Chronic Assessment and plan: Echocardiogram 03/17/18 shows ejection fraction of 60% with mild diastolic dysfunction. Management per primary team (3) Aspiration pneumonia Status: Suspected Assessment and plan: As above for acute on chronic respiratory failure Qualifiers: Aspiration pneumonia type: unspecified Laterality: unspecified laterality Lung location: upper lobe of lung Qualified Code(s): J69.0 - Pneumonitis due to inhalation of food and vomit (4) ESRD (end stage renal disease) Status: Chronic Assessment and plan: - Patient is on dialysis but has been unable to complete sessions - Nephrology is following and has discussed discontinuation of hemodialysis with patient - Further management per nephrology and primary team - Please renally dose medications and avoid nephrotoxins (5) Fluid overload Status: Acute Assessment and plan: Per primary team and nephrology Most likely cause of acute respiratory failure Qualifiers: Hypervolemia type: other Qualified Code(s): E87.79 - Other fluid overload Infectious Disease HPI - Data of Consult Patient: known to practice within the last 3 years Consult date: 08/16/18 Requesting Physician: Angelo Berkowitz Primary Care Provider: PCP NONE - Consult Narrative Reason for consult: Concern for aspiration, h/o e.coli and proteus sputum cx History of present illness: Ms. Riley is a 63 year old female who presented to the hospital on 08/15/18 with complaint of shortness of breath. Infectious disease was consulted for concerns for aspiration pneumonia with a recent history of Escherichia coli and Proteus in sputum culture. Patient does have a past medical history of atrial fibrillation, COPD, HFpEF, ESRD on dialysis, GI bleeds, HLD, hypertension, PAD, anxiety, depression, schizophrenia. She reports that she has been short of breath for approximately past 3-4 days. Shortness breath is worsened with exertion but is present at rest. She also complains of nonproductive cough during this time and states it has been present for the past couple weeks. She denies any symptoms of fevers, chills but does admit to some chest/rib pain which is worsened when she coughs. She denies any symptoms of nausea, vomiting, changes in bowel movements. Patient is oliguric however she is complaining of dysuria with milky white/brown urine. She states she has to urinate approximately one or 2 times every 1 or 2 days. Patient does admit that she has been unable to complete her dialysis s essions quite frequently. When asked why this is, she states that she is "just lazy." She also admits to one episode of hematemesis approximately 1 teaspoon in volume occurring on Wednesday. Patient has been admitted to this hospital very frequently for complaints of shortness of breath and has been treated for pneumonia most recently 07/22/18 at which point infectious disease was consulted. She was treated with ertapenem for 14 days for positive sputum cultures growing Proteus and ESBL Escherichia coli. On presentation to the hospital, vital signs have been stable and unremarkable. Laboratory results significant for a BUNs/creatinine of 24/2.74 consistent with ESRD. Glucose of 256. Lactic acid was within normal limits at 1.2. BNP was 704. Blood cultures were drawn 2 on 08/13 and her stress far negative for growth. Most recent echocardiogram on 03/17/18 shows ejection fraction of 60% with mild diastolic dysfunction. Nephrology has been consulted for assistance on her dialysis. Palliative care is also been consulted during this admission. She did have a barium swallow performed on 08/13/18 which did show penetration with thin liquids. Today during interview, patient states that her breathing has improved since admission. She does still complain of nonproductive cough as well as dysuria. She continues to deny any symptoms of fevers, chills. She is denying any symptoms of dysphagia or coughing after eating both liquids or solids. She does continue to smoke approximately one half pack per day but does not admit to alcohol or drug use. CC: Angelo Berkowitz Past Med Surg Social Fam HX - Past Medical History Medical history: atrial fibrillation, CHF, COPD, coronary artery disease, diabetes, dialysis, GI bleed, hyperlipidemia, hypertension, myocardial infarction, peripheral artery disease, renal disease Additional medical history: AV fistula for dialysis ++ Psychiatric history: anxiety, depression, schizophrenia, previous psychiatric hospitalization - Past Surgical History Surgical History: angioplasty/stent, appendectomy, cholecystectomy, coronary bypass (CABG), hysterectomy, knee replacement, other, IVC filter Additional surgical history: left arm fistulogram with covered stent placement left basilic vein 2016. kidney stones 1996. double Bypass 1998. stents x5 unsure date. right wrist 2017 - Social History Smoking Status: Current every day smoker Smokeless Tobacco Status: No Alcohol use: none Drug use: none - Family History Brother Adopted: No Family Member Ethnicity: Non- Living Status: Still Living Hx Family Cardiac Disorders: No Hx Family Respiratory Disorders: No Hx Family Cancer: No Hx Family GI Disorders: No Hx Family Endocrine Disorder: No Hx Family Neuromuscular Disorders: No Hx Family Neurologic Disorders: No Hx Family HEENT Disorders: No Hx Family Autoimmune Disorders: No Father Family Member Ethnicity: Non- Living Status: Hx Family Cardiac Disorders: Yes Hx Family Respiratory Disorders: Yes Hx Family Cancer: Yes (Polycythemia) Hx Family Endocrine Disorder: Yes (DM) Mother Family Member Ethnicity: Non- Living Status: Still Living Hx Family Cardiac Disorders: Yes Hx Family Respiratory Disorders: Yes (asthma, COPD) Sister Adopted: No Family Member Ethnicity: Non- Living Status: Still Living Hx Family Cardiac Disorders: Yes Hx Family Respiratory Disorders: No Hx Family Cancer: No Hx Family GI Disorders: No Hx Family Endocrine Disorder: Yes Hx Family Neuromuscular Disorders: No Hx Family Neurologic Disorders: No Hx Family HEENT Disorders: No Hx Family Autoimmune Disorders: No Infectious Disease-CN:Meds RX: Colestipol HCl [Colestid] 1 gm PO BID 06/12/15 [History] RX: Calcium Acetate [Phos-LO] 1,334 mg PO TIDWM 09/06/16 [History] RX: ARIPiprazole [Abilify] 10 mg PO DAILY 09/13/17 [History] RX: Aspirin Enteric Coated [Aspirin EC] 81 mg PO DAILY 09/13/17 [History] RX: Budesonide/Formoterol 160/4.5 [Symbicort 160/4.5] 2 puff IH BIDR 09/13/17 [History] RX: Cholecalciferol (Vitamin D3) [Vitamin D3] 50,000 unit PO TH 09/13/17 [History] RX: Sevelamer [Renvela] 800 mg PO DAILY 09/13/17 [History] RX: Albuterol Neb [AccuNeb] 0.63 mg IH Q6H PRN 10/18/17 [History] RX: amLODIPine [Norvasc] 5 mg PO DAILY 12/30/17 [History] RX: Clopidogrel [Plavix] 75 mg PO DAILY 02/03/18 [History] RX: Rosuvastatin Calcium [Crestor] 20 mg PO DAILY 02/27/18 [History] RX: Amitriptyline [Elavil] 50 mg PO HS tablet 03/24/18 [Rx] RX: Renal Vitamin [Renal Caps Softgel] 1 mg PO DAILY capsule 04/17/18 [Rx] RX: Carvedilol 12.5 mg PO BID 04/28/18 [History] RX: Darbepoetin [Aranesp] 60 mcg SQ FR 04/28/18 [History] RX: Insulin DETEMIR [Levemir] 34 unit SQ HS 04/28/18 [History] RX: Insulin LISPRO [HumaLOG] 2 - 10 units SQ TIDWM 04/28/18 [History] RX: Lactobacillus Acidophilus/Fos [Acidophilus Probiotic Tablet] 1 tab PO DAILY 04/28/18 [History] RX: Omeprazole [PriLOSEC] 20 mg PO DAILY 04/28/18 [History] RX: Isosorbide MONOnitrate (24 HR) [Imdur] 30 mg PO DAILY #30 tab.er.24h 07/04/18 [Rx] RX: Benzonatate [Tessalon] 200 mg PO TID PRN 10 Days #30 capsule 07/22/18 [Rx] RX: Gabapentin [Neurontin] 100 mg PO TID 4 Days #12 capsule 07/22/18 [Rx] RX: OxyCODONE/APAP 5/325 [Percocet 5/325 MG] 1 each PO Q8HR PRN 2 Days #6 tablet 07/22/18 [Rx] RX: Ertapenem [INVanz] 500 mg IVPB DAILY #7 vial 07/26/18 [Rx] RX: Metoclopramide [Reglan] 5 mg PO DAILY 08/13/18 [History] RX: Sucralfate [Carafate] 1 gm PO QIDAC 08/13/18 [History] RX: traZODone [TraZODone] 50 mg PO HS 08/13/18 [History] Allergy/AdvReac Type Severity Reaction Status Date / Time piperacillin [From Zosyn] Allergy Anaphylaxis Verified 07/05/18 10:03 tazobactam [From Zosyn] Allergy Anaphylaxis Verified 07/05/18 10:03 Review of systems: - Constitutional: Denies fevers, chills, weight loss, generalized fatigue - EENT: Denies rhinorrhea, congestion, sore throat, odynaphagia, dysphagia, aspiration - CVS: Admits to chest pain, rib pain, dyspnea on exertion, lower extremity swelling. Denies palpitations - Pulm: Admits to shortness breath, cough, hematemesis. Denies sputum, wheezing - GI: Denies abdominal pain, anorexia, nausea, vomiting, diarrhea, constipation, melena - : Admits to dysuria, oliguria. Denies increased frequency, urgency, hematuria, - Skin: Admits to skin tears secondary to fall. Denies rashes, ulcers, color changes, - Neuro: Denies SANCHEZ, paresthesias, focal deficits, ataxia, Exam - Constitutional Vitals: Temp Pulse Resp BP Pulse Ox 97.7 F 86 18 98/77 96 08/16/18 10:00 08/16/18 05:39 08/16/18 10:00 08/16/18 11:00 08/16/18 07:43 Exam: Gen.: Vitals noted. No acute distress. AAOx3, resting comfortably in bed. HEENT: PERRL/EOMI, oropharynx clear, Normocephalic, atraumatic, MMM Cardiac: RRR, no murmur, +S1/S2 Pulmonary: Crackles appreciated diffusely. equal chest expansion Abdomen: soft, nontender, BS noted, no guarding, no rebound. MSK: no joint swelling noted Extremities: 2+ BLE edema with chronic can changes, nontender calf, no cyanosis or clubbing. Fistula on left arm. Skin tears on left arm, mild ecchymosis on bilateral extremities Neuro: A&Ox3, moves all extremities, no focal deficits Psych: Appropriate mood and behavior Infectious Disease CN: Results - Labs CBC & Chem 7: 08/17/18 04:59 08/17/18 04:59 Cultures: Cultures 08/13/18 06:02 Blood Culture - Preliminary Peripheral Venipuncture Culture is incubating and being continuously monitored for growth. Final report to follow. 08/13/18 05:58 Blood Culture - Preliminary Peripheral Venipuncture Culture is incubating and being continuously monitored for growth. Final report to follow. Consult Discharge Plan - Plan Referrals: NONE,PCP [Primary Care Provider] - - Attending Attestation I examined this patient and my medical decision-making was reviewed with the Resident Physician. I agree with the documented findings, disposition and treatment plan as described except to the extent set forth below. This is an addendum to original report dictated by resident physician. Please refer to resident's note for full details. Patient is a 63-year-old woman well-known to our service who we have seen on multiple occasions continues to have issues with dialysis, has a stage III decubitus ulcer on her coccyx and recurrent pneumonia likely secondary to aspiration came in with acute on chronic respiratory failure likely to due to combination of CHF exacerbation and possible aspiration pneumonia. We were asked to evaluate the patient's make further recommendations. Currently patient laying in bed appears comfortable. This is the best of seen her in quite some time. She does have a lot of skin tears on her bilateral arms. She does have decubitus ulcer stage III on her back. She has good air sounds bilaterally and she did get dialyzed today. Assessment and plan: Acute on chronic respiratory failure Etiology not clear could be secondary to CHF by itself or pneumonia or combination of both. I favor the latter. Clinically patient has no SIRS criteria. Her cough she tells me is nonproductive. Get a CT chest and if it reveals no obvious pneumonia we will stop all antibiotics unobserved. In the meantime okay to continue with the ertapenem. Monitor labs and for truck toxicity.
[2018-08-16] MEDS: *HR* HYDROcodone/Acet 5/325 mg TABLET PO PRN (13:10)
--- NOTE | 2018-08-16 15:18 | Event Note ---
Date of Encounter: 08/16/18 Time of Encounter: 11:00 Pt was seen today during HD, she is feeling better. Discussed that she is not tolerating HD very well and that she will eventually need to d/c. She demonstrates understanding. Dn state form was senior drafter and scanned in the chart for DNRCC. Attempted numerous times to reach pt's son Leo, message left with call back numbers. As per patient he works long hours. Thank you for allowing us to participate in the care of this patient, Palliative care will sign off.
[2018-08-16] MEDS: Acetaminophen 325 MG TABLET PO PRN (16:10)
--- NOTE | 2018-08-16 16:30 | Internal Med Progress Note ---
Hospitalist Progress Note - Encounter Date of Encounter: 08/16/18 Time of Encounter: 11:00 - Subjective Interval History: Patient had no issues or complaints this morning during dialysis Patient with volume overload due to needing hemodialysis She remains on her baseline O2 supplementation. - Exam Vitals: Temp Pulse Resp BP Pulse Ox 97.2 F L 92 18 119/67 96 08/16/18 12:13 08/16/18 16:06 08/16/18 16:18 08/16/18 12:43 08/16/18 16:18 Exam: Gen.: Nonacute distress, alert and oriented 3 ENT: Mucosal membranes moist Respiratory: Lungs are clear to auscultation bilaterally without any wheezing rhonchi or rales Cardiovascular: Normal S1 and S2 regular rate rhythm no murmurs rubs or gallops Abdomen: Soft, nontender and nondistended with positive bowel sounds Extremities: No lower extremity edema Skin: Normal color - Assessment and Plan (1) End-stage renal disease (ESRD) Current Visit: Yes Status: Chronic Assessment and Plan: Patient apparently becoming intolerant to renal replacement therapy Nephrology consulted and appreciate recommendations (2) Acute and chronic respiratory failure Current Visit: Yes Status: Acute Assessment and Plan: Suspect fluid overload as main etiology +/- aspiration pneumonia Patient currently on baseline O2 supplementation continue vanc/ertapenem/flagyl, pending sputum culture Infectious disease consulted and appreciate recommendations (3) Aspiration pneumonia Current Visit: Yes Status: Suspected Assessment and Plan: Recent sputum culture + for E. Coli and Proteus. continue Ertapenem Infectious disease consulted and appreciate recommendations (4) COPD (chronic obstructive pulmonary disease) Current Visit: No Status: Chronic Assessment and Plan: Does not appear to be in exacerbation Continue Home inhaler and bronchodilators (5) Hypertension Current Visit: No Status: Chronic Assessment and Plan: Holding off on home meds. BP meds stable (6) Diabetes mellitus Current Visit: No Status: Chronic Assessment and Plan: She is clear for diet per speech Monitor blood glucose before meals and at bedtime on low-dose sliding scale coverage resume levemir if elevated DVT Prophylaxis: Heparin subcutaneous - Time Spent with Patient Total time spent is greater than 50% in coordination of care (as documented) at patient's floor/unit and/or counseling patient: Internal Medicine: Result - Labs CBC & Chem 7: 08/16/18 06:56 11/06/18 06:56 Labs: Short CBC 08/16/18 Range/Units 06:56 WBC 6.9 (4.3-11.1) K/mcL Hgb 8.1 L (11.5-15.4) g/dL Hct 28.5 L (35.3-44.9) % Plt Count 148 (140-400) K/mcL BMP 08/16/18 06:56 Sodium 133 L Potassium 4.3 Chloride 97 L Carbon Dioxide 27 BUN 24 H Creatinine 2.74 H Glucose 256 H Calcium 8.9 - ABG Interpretation ABG results: ABG ABG pH 7.37 pH Units (7.32-7.45) 08/14/18 00:23 ABG pCO2 53 mmHg (35-45) H 08/14/18 00:23 ABG pO2 70 mmHg (85-104) L 08/14/18 00:23 ABG O2 Saturation 93 % (95-98) L 08/14/18 00:23 Consult Discharge Plan - Plan Referrals: NONE,PCP [Primary Care Provider] - (2) Acute and chronic respiratory failure Qualifiers: Respiratory failure complication: hypoxia and hypercapnia Qualified Code(s): J96.21 - Acute and chronic respiratory failure with hypoxia; J96.22 - Acute and chronic respiratory failure with hypercapnia (3) Aspiration pneumonia Qualifiers: Aspiration pneumonia type: unspecified Laterality: right Lung location: lower lobe of lung Qualified Code(s): J69.0 - Pneumonitis due to inhalation of food and vomit (4) COPD (chronic obstructive pulmonary disease) Qualifiers: COPD type: unspecified COPD Qualified Code(s): J44.9 - Chronic obstructive pulmonary disease, unspecified (5) Hypertension Qualifiers: Hypertension type: essential hypertension Qualified Code(s): I10 - Essential (primary) hypertension (6) Diabetes mellitus Qualifiers: Diabetes mellitus type: type 2 Diabetes mellitus half-way insulin use: with half-way use Diabetes mellitus complication status: with skin complications Diabetes mellitus complication detail: with other skin complication Qualified Code(s): E11.628 - Type 2 diabetes mellitus with other skin complications; Z79.4 - penitentiary (current) use of insulin
[2018-08-16] MEDS: Insulin DETEMIR 100 UNIT/ML X5UNITS SQ SCH (21:34)
--- NOTE | 2018-08-16 23:54 | Nephrology Progress Note ---
Date of Encounter: 08/16/18 Time of Encounter: 12:00 - Assessment and Plan (1) Acute and chronic respiratory failure Current Visit: Yes Status: Acute Improving with UF Continue fluid restriction Qualifiers: Respiratory failure complication: hypoxia and hypercapnia Qualified Code(s): J96.21 - Acute and chronic respiratory failure with hypoxia; J96.22 - Acute and chronic respiratory failure with hypercapnia (2) Acute CHF Current Visit: Yes Status: Acute See above Qualifiers: Heart failure type: unspecified Qualified Code(s): I50.9 - Heart failure, unspecified (3) Anemia in chronic kidney disease, on chronic dialysis Current Visit: No Status: Chronic Hgb noted at 8.1, will monitor (4) Type 2 diabetes mellitus with ESRD (end-stage renal disease) Current Visit: No Status: Chronic (5) End-stage renal disease on hemodialysis Current Visit: No Status: Chronic Continue UF with goal of 4-5kg with approx. 20lbs fluid removal in 2 days Lytes stable, sodium at 133 (6) Volume overload Current Visit: Yes Status: Acute Qualifiers: Hypervolemia type: unspecified Qualified Code(s): E87.70 - Fluid overload, unspecified Subjective Interval history: Pt seen and examined more awake and back to baseline mental status but unable to shed light on current condition or what happened leading to this hospital stay Objective - Vital Signs Vital signs: Vital Signs Temp Pulse Resp BP Pulse Ox 08/16/18 20:28 14 99 08/16/18 20:00 97.8 F 87 15 115/61 100 08/16/18 16:18 18 96 08/16/18 16:06 92 08/16/18 12:43 98 119/67 08/16/18 12:13 97.2 F L 18 121/54 08/16/18 12:00 114/60 08/16/18 11:45 122/65 08/16/18 11:30 110/56 08/16/18 11:15 112/62 08/16/18 11:00 98/77 08/16/18 10:45 92/61 08/16/18 10:30 102/59 08/16/18 10:15 124/68 08/16/18 10:00 97.7 F 18 123/74 08/16/18 07:43 98.4 F 128/64 96 08/16/18 07:30 17 96 08/16/18 05:39 86 19 116/79 96 08/15/18 23:58 20 93 Intake and Output 08/16/18 08/16/18 08/16/18 07:59 15:59 23:59 Intake Total 840 / 840 100 / 100 Output Total 0 / 0 5100 / 5100 0 / 0 Balance 0 / 0 -4260 / -4260 100 / 100 Intake: IV Fluids 100 / 100 INVanz 500 MG In 0.9 % Sodium 100 / 100 Chloride 100 ML @ 100 mls/hr IVPB HS [facility] Rx#:[id number] Oral 240 / 240 0 / 0 Intake, Rinseback and Flushes 600 / 600 Output: Urine 0 / 0 0 / 0 0 / 0 Total Dialysis (HD) Output 5100 / 5100 Other: Meal Breakfast Percent of Meal Consumed 100% Weight 126 kg 126 kg Blood Glucose* 267 168 325 Hemodialysis Net Fluid Removed 4500 (mL) Patient Weight 08/16/18 23:59 Weight 126 kg - General Appearance General appearance: Present: chronically ill EENT: Present: ATNC, mucous membranes moist Neck: Present: no JVD, supple Additional Comments: improved areation ant bilat Cardiology: Present: edema, normal S1, normal S2 Dialysis Vascular Access: Arteriovenous Fistula thrill: Yes bruit: Yes Gastrointestinal: Present: no tenderness, no guarding, obese Integumentary: Present: warm and dry, chronic venous stasis Neurologic: Present: no focal deficit Musculoskeletal: Present: no deformities Psychiatric: Present: mood/affect appropriate - Lab 08/16/18 06:56 08/16/18 06:56 Most recent lab results ABG pH 7.37 pH Units (7.32-7.45) 08/14/18 00:23 ABG pCO2 53 mmHg (35-45) H 08/14/18 00:23 ABG pO2 70 mmHg (85-104) L 08/14/18 00:23 ABG HCO3 30 mEq/L (21-27) H 08/14/18 00:23 ABG O2 Saturation 93 % (95-98) L 08/14/18 00:23 Calcium 8.9 mg/dL (8.6-10.3) 08/16/18 06:56 Magnesium 2.0 mg/dL (1.6-2.6) 08/14/18 05:38 Consult Discharge Plan - Plan Referrals: NONE,PCP [Primary Care Provider] -
[2018-08-17] MEDS: Ipratropium/Albuterol Neb 3 ML IH SCH ×7 (00:19→23:49)
[2018-08-17] MEDS: *HR* OxyCODONE Immed Rel 5 MG TABLET PO PRN (00:48)
[2018-08-17] MEDS: *HR* Heparin 5,000 UNIT/ML VIAL SQ SCH ×3 (05:44→21:17)
[2018-08-17 05:46] LABS: Red Cell Distribution Width 18.7 % (11.5-14.5)
[2018-08-17 05:47] LABS: Hematocrit 27.4 % (35.3-44.9); Hemoglobin 8.1 g/dL (11.5-15.4); Mean Corpuscular HGB Conc 29.6 g/dL (31.6-35.5); Mean Corpuscular Hemoglobin 23.5 pg (28.0-33.3); Mean Corpuscular Volume 79.4 fL (83.0-100.0); Platelet Count 118 K/mcL (140-400); Red Blood Count 3.45 M/mcL (3.82-4.97)
[2018-08-17 06:11] LABS: Calcium 9.1 mg/dL (8.6-10.3); Potassium 4.2 mEq/L (3.5-5.1)
[2018-08-17] MEDS: Budesonide/Formoterol 160/4.5 1 PUFF INH IH SCH ×2 (07:48→20:35)
[2018-08-17] MEDS: Gabapentin 100 MG CAPSULE PO SCH ×3 (09:11→21:17)
[2018-08-17] MEDS: Sucralfate 1 GM TABLET PO SCH ×4 (09:11→21:17)
[2018-08-17] MEDS: Calcium Acetate 667 MG CAPSULE PO SCH ×3 (09:12→16:42)
[2018-08-17] MEDS: ARIPiprazole 10 MG TABLET PO SCH (09:12)
[2018-08-17] MEDS: Aspirin Enteric Coated 81 MG Tablet PO SCH (09:12)
[2018-08-17] MEDS: Insulin LISPRO 300 UNITS/3 ML VIAL SQ SCH ×4 (09:28→21:18)
[2018-08-17] MEDS: (Colestipol Hcl [Colestid] 1 GM) PO SCH ×2 (09:29→21:17)
--- NOTE | 2018-08-17 10:55 | Infectious Disease Progress No ---
Date of Encounter: 08/17/18 Time of Encounter: 10:05 - Assessment and Plan (1) Acute and chronic respiratory failure Current Visit: Yes Status: Acute - Acute and chronic respiratory failure. Currently tolerating 4 L of supplemental oxygen, home requirement of 3 L - Most likely etiology is fluid overload secondary to incomplete hemodialysis - There is a concern of aspiration pneumonia. - Patient does not meet SIRS criteria with normal vital signs and no leukocytosis - BNP of 704 - Sputum culture on 07/18/18 was positive for ESBL Escherichia coli and Proteus. Patient did complete a course of ertapenem 14 days per previous ID recommendations. Completed 08/02/18 - Blood cultures 08/13/18 negative 2 - Chest x-ray on presentation showed evidence of pulmonary edema without obvious consolidation - Barium swallow did show penetration with thin liquids on 08/13/18 - CT scan 07/16/18 showed diffuse groundglass opacities with bilateral pleural effusions which is most suggestive of pulmonary edema. There is also a left upper lobe focal consolidation which may be concerning for superimposed pneumonia. Also noted were cutaneous thickening of the left breast. - Currently on ertapenem, day 5 - Previously on flagyl, vancomycin, ertapenem Plan - Given that patient is nonseptic and she is back to baseline oxygen requirements, we feel this is most likely secondary to volume overload with CHF/ESRD and less likely aspiration. - CT scan is equivocal for infection - If CT is negative for consolidation, will discontinue Abx. Qualifiers: Respiratory failure complication: hypoxia and hypercapnia Qualified Code(s): J96.21 - Acute and chronic respiratory failure with hypoxia; J96.22 - Acute and chronic respiratory failure with hypercapnia (2) (HFpEF) heart failure with preserved ejection fraction Current Visit: Yes Status: Chronic Echocardiogram 03/17/18 shows ejection fraction of 60% with mild diastolic dysfunction. Management per primary team (3) Aspiration pneumonia Current Visit: No Status: Suspected As above for acute on chronic respiratory failure Qualifiers: Aspiration pneumonia type: unspecified Laterality: unspecified laterality Lung location: upper lobe of lung Qualified Code(s): J69.0 - Pneumonitis due to inhalation of food and vomit (4) ESRD (end stage renal disease) Current Visit: Yes Status: Chronic - Patient is on dialysis but has been unable to complete sessions - Nephrology is following and has discussed discontinuation of hemodialysis with patient. Currently undergoing UF - Further management per nephrology and primary team - Please renally dose medications and avoid nephrotoxins (5) Fluid overload Current Visit: Yes Status: Acute Per primary team and nephrology Most likely cause of acute respiratory failure Qualifiers: Hypervolemia type: other Qualified Code(s): E87.79 - Other fluid overload - Subjective Interval history: Patient was seen and examined up and since morning. She states that overall she feels about the same. Her shortness of breath and nonproductive cough have not improved. She continues to complain of lower extremity swelling, dyspnea on exertion. She also has no complaints this morning of epigastric pain since early this morning. She did tolerate her breakfast well without any complaints of nausea, vomiting. She does have some complaints of breast pain but denies any discharge or erythema. She does not get regular mammograms. Infect Dis PN-Objective Data - Labs CBC & Chem 7: 08/17/18 04:59 08/17/18 04:59 Labs: Laboratory Results - last 24 hr 08/16/18 08/16/18 08/17/18 16:07 20:26 04:59 WBC 5.6 RBC 3.45 L Hgb 8.1 L Hct 27.4 L MCV 79.4 L MCH 23.5 L MCHC 29.6 L RDW 18.7 H Plt Count 118 L MPV 11.0 Sodium Potassium Chloride Carbon Dioxide BUN Creatinine Est GFR ( Amer) Est GFR (Non-Af Amer) BUN/Creatinine Ratio Glucose POC Glucose 222 H 325 H Calculated Osmolality Calcium 08/17/18 08/17/18 04:59 07:49 WBC RBC Hgb Hct MCV MCH MCHC RDW Plt Count MPV Sodium 134 L Potassium 4.2 Chloride 97 L Carbon Dioxide 29 BUN 20 Creatinine 2.72 H Est GFR ( Amer) 21 L Est GFR (Non-Af Amer) 18 L BUN/Creatinine Ratio 7 Glucose 201 H POC Glucose 161 H Calculated Osmolality 286 Calcium 9.1 Cultures: Cultures 08/13/18 06:02 Blood Culture - Preliminary Peripheral Venipuncture Culture is incubating and being continuously monitored for growth. Final report to follow. 08/13/18 05:58 Blood Culture - Preliminary Peripheral Venipuncture Culture is incubating and being continuously monitored for growth. Final report to follow. - Impressions Impressions Chest CT 08/16/18 18:30 IMPRESSION: There is alveolar ground-glass opacity throughout both lungs, along with bilateral pleural effusions, greater on the left, with adjacent airspace disease (probably atelectasis). These findings would suggest pulmonary edema. However, within the left upper lung, there are additional focal areas of consolidation, concerning for superimposed pneumonia. In addition, the dependent airspace disease in the left lung adjacent to the pleural effusion could also represent pneumonia or aspiration. There continues to be asymmetric cutaneous thickening involving the left breast. Physical examination is recommended to evaluate for the possibility of mastitis or inflammatory breast carcinoma. Multiple enlarged lymph nodes within the mediastinum, stable when compared to the previous exam. D/ / Anderson Doe MD / Anderson Doe MD Interpreting Provider: Anderson Doe MD Exam - Constitutional Vitals: Temp Pulse Resp BP Pulse Ox 97.9 F 78 18 109/60 97 08/17/18 07:54 08/17/18 07:54 08/17/18 07:44 08/17/18 04:00 08/17/18 07:54 Exam: Gen.: Vitals noted. No acute distress. AAOx3. Sitting up at bedside on 4 L of oxygen HEENT: PERRL/EOMI, oropharynx clear, Normocephalic, atraumatic, MMM Cardiac: RRR, no murmur, +S1/S2 Pulmonary: Diffuse stridor present bilaterally, diminished sounds at bases, mild expiratory wheezes. equal chest expansion Abdomen: soft, mildly tender to palpation of epigastric region, BS noted, no guarding, no rebound. MSK: ROM intact, no joint swelling noted Extremities: 2+ BLE edema, nontender calf, no cyanosis or clubbing Neuro: A&Ox3, moves all extremities, no focal deficits Psych: Appropriate mood and behavior Consult Discharge Plan - Plan Referrals: NONE,PCP [Primary Care Provider] - - Attending Attestation I examined this patient and my medical decision-making was reviewed with the Resident Physician. I agree with the documented findings, disposition and treatment plan as described except to the extent set forth below. I appreciate radiology's reading and recommendations. Continue ertapenem. Patient might also have mastitis on the CT, start empiric vancomycin Duration of treatment 14 days total
--- NOTE | 2018-08-17 16:36 | Internal Med Progress Note ---
Hospitalist Progress Note - Encounter Date of Encounter: 08/17/18 Time of Encounter: 11:00 - Subjective Interval History: Patient presents from the ECF due to shortness of breath due to volume overload as a result of not being able to complete dialysis. Patient had no issues or complaints this morning during dialysis She remains on her baseline O2 supplementation. However, CT of the chest with findings concerning for superimposed pneumonia in addition to mastitis versus inflammatory breast carcinoma. Will continue IV antibiotics; ASSISTANT PROGRAM MANAGER and pulmonology has been consulted for recommendations for new CT findings - Exam Vitals: Temp Pulse Resp BP Pulse Ox 97.9 F 90 18 117/67 97 08/17/18 07:54 08/17/18 16:31 08/17/18 15:12 08/17/18 16:31 08/17/18 15:12 Exam: Gen.: Nonacute distress, alert and oriented 3 ENT: Mucosal membranes moist Respiratory: Lungs are clear to auscultation bilaterally without any wheezing rhonchi or rales Cardiovascular: Normal S1 and S2 regular rate rhythm no murmurs rubs or gallops Abdomen: Soft, nontender and nondistended with positive bowel sounds Extremities: No lower extremity edema Skin: Normal color - Assessment and Plan (1) Aspiration pneumonia Current Visit: Yes Status: Suspected Assessment and Plan: CT of the chest showed patchy alveolar ground-glass opacities bilaterally in a ddition to superimposed focal areas of consolidation seen within the left upper lung. Recent sputum culture + for E. Coli and Proteus. Will continue Ertapenem per infectious disease recommendations Will consult pulmonology due to CT findings to determine if truly pneumonia (2) Acute and chronic respiratory failure Current Visit: Yes Status: Acute Assessment and Plan: Resolved; suspect fluid overload +/- aspiration pneumonia Patient currently on baseline O2 supplementation Continue ertapenem (3) COPD (chronic obstructive pulmonary disease) Current Visit: No Status: Chronic Assessment and Plan: Does not appear to be in exacerbation Continue Home inhaler and bronchodilators (4) End-stage renal disease (ESRD) Current Visit: Yes Status: Chronic Assessment and Plan: Patient at hemodialysis this morning. Nephrology following and appreciate recommendations (5) Mastitis, left, acute Current Visit: Yes Status: Acute Assessment and Plan: CT of the chest showed concerns for mastitis versus inflammatory breast carcinoma. Will consult ASSISTANT PROGRAM MANAGER and appreciate recommendations. (6) Hypertension Current Visit: No Status: Chronic Assessment and Plan: Pressure medicines currently being held; blood pressure remains stable Continue to monitor (7) Diabetes mellitus Current Visit: No Status: Chronic Assessment and Plan: Continue basal insulin with sliding scale coverage DVT Prophylaxis: Subcutaneous heparin - Time Spent with Patient Total time spent is greater than 50% in coordination of care (as documented) at patient's floor/unit and/or counseling patient: Internal Medicine: Result - Labs CBC & Chem 7: 08/17/18 04:59 08/17/18 04:59 Labs: Short CBC 08/17/18 Range/Units 04:59 WBC 5.6 (4.3-11.1) K/mcL Hgb 8.1 L (11.5-15.4) g/dL Hct 27.4 L (35.3-44.9) % Plt Count 118 L (140-400) K/mcL BMP 08/17/18 04:59 Sodium 134 L Potassium 4.2 Chloride 97 L Carbon Dioxide 29 BUN 20 Creatinine 2.72 H Glucose 201 H Calcium 9.1 - ABG Interpretation ABG results: ABG ABG pH 7.37 pH Units (7.32-7.45) 08/14/18 00:23 ABG pCO2 53 mmHg (35-45) H 08/14/18 00:23 ABG pO2 70 mmHg (85-104) L 08/14/18 00:23 ABG O2 Saturation 93 % (95-98) L 08/14/18 00:23 - Impressions Impressions Chest CT 08/16/18 18:30 IMPRESSION: There is alveolar ground-glass opacity throughout both lungs, along with bilateral pleural effusions, greater on the left, with adjacent airspace disease (probably atelectasis). These findings would suggest pulmonary edema. However, within the left upper lung, there are additional focal areas of consolidation, concerning for superimposed pneumonia. In addition, the dependent airspace disease in the left lung adjacent to the pleural effusion could also represent pneumonia or aspiration. There continues to be asymmetric cutaneous thickening involving the left breast. Physical examination is recommended to evaluate for the possibility of mastitis or inflammatory breast carcinoma. Multiple enlarged lymph nodes within the mediastinum, stable when compared to the previous exam. D/ / Anderson Doe MD / Anderson Doe MD Interpreting Provider: Anderson Doe MD Consult Discharge Plan - Plan Referrals: NONE,PCP [Primary Care Provider] - (1) Aspiration pneumonia Qualifiers: Aspiration pneumonia type: unspecified Laterality: right Lung location: lower lobe of lung Qualified Code(s): J69.0 - Pneumonitis due to inhalation of food and vomit (2) Acute and chronic respiratory failure Qualifiers: Respiratory failure complication: hypoxia and hypercapnia Qualified Code(s): J96.21 - Acute and chronic respiratory failure with hypoxia; J96.22 - Acute and chronic respiratory failure with hypercapnia (3) COPD (chronic obstructive pulmonary disease) Qualifiers: COPD type: unspecified COPD Qualified Code(s): J44.9 - Chronic obstructive pulmonary disease, unspecified (6) Hypertension Qualifiers: Hypertension type: essential hypertension Qualified Code(s): I10 - Essential (primary) hypertension (7) Diabetes mellitus Qualifiers: Diabetes mellitus type: type 2 Diabetes mellitus long term care administrator insulin use: with care home use Diabetes mellitus complication status: with skin complications Diabetes mellitus complication detail: with other skin complication Qualified Code(s): E11.628 - Type 2 diabetes mellitus with other skin complications; Z79.4 - residential (current) use of insulin
[2018-08-17] MEDS: Insulin DETEMIR 100 UNIT/ML X5UNITS SQ SCH (21:17)
[2018-08-17] MEDS: Ondansetron 4 MG/2 ML VIAL IVP PRN (23:19)
[2018-08-17] MEDS: Acetaminophen 325 MG TABLET PO PRN (23:19)
[2018-08-18] MEDS: Ipratropium/Albuterol Neb 3 ML IH SCH ×4 (04:43→15:55)
[2018-08-18 05:08] LABS: Hematocrit 29.2 % (35.3-44.9); Hemoglobin 8.5 g/dL (11.5-15.4); Mean Corpuscular HGB Conc 29.1 g/dL (31.6-35.5); Mean Corpuscular Hemoglobin 23.2 pg (28.0-33.3); Mean Corpuscular Volume 79.6 fL (83.0-100.0); Mean Platelet Volume 11.8 fL (9.4-12.4); Platelet Count 141 K/mcL (140-400); Red Blood Count 3.67 M/mcL (3.82-4.97); Red Cell Distribution Width 18.6 % (11.5-14.5)
[2018-08-18 05:27] LABS: Calcium 9.3 mg/dL (8.6-10.3); Potassium 4.7 mEq/L (3.5-5.1)
[2018-08-18] MEDS: *HR* Heparin 5,000 UNIT/ML VIAL SQ SCH ×2 (05:56→13:00)
[2018-08-18] MEDS ORDERED: 0.9 % Sodium Chloride 2,000 ML ONE (06:35)
[2018-08-18] MEDS ORDERED: 0.9 % Sodium Chloride 250 ML IVC PRN ×2 (07:22→07:28)
[2018-08-18] MEDS ORDERED: 0.9 % Sodium Chloride 1,000 ML PRIME ONE (07:30)
[2018-08-18] MEDS ORDERED: 0.9 % Sodium Chloride 1,000 ML PRIME SCH (07:30)
[2018-08-18] MEDS: Budesonide/Formoterol 160/4.5 1 PUFF INH IH SCH (07:52)
--- NOTE | 2018-08-18 07:56 | Pulmonology Consult Note ---
Date of Encounter: 08/18/18 Time of Encounter: 07:55 Assessment and Plan (1) Acute and chronic respiratory failure with hypoxia Current Visit: Yes Status: Acute Baseline FiO2 is about 3 L at home. She is currently requiring 4-5 L no respiratory distress recommend continuation of the titration of FiO2 down to keep saturation greater than 88% Recommend out of bed to chair and physical therapy as a lot of the patient's problems are related to VQ mismatching from atelectasis incentive spirometry can also be helpful (2) Pneumonia Current Visit: No Status: Acute Radiographically I had a strong suspicion of pneumonia on presentation clinically she appears to be doing quite well status post antimicrobial therapy Able to stop antimicrobials at this point and continue to monitor her clinical course She is at very high risk of recurrent pneumonia because of chronic underlying illness relative immunosuppression and increased aspiration risk Would defer to infectious disease for further antimicrobial choice Doubt that bronchoscopy at this point would add anything to the clinical course Qualifiers: Pneumonia type: aspiration pneumonia Aspiration pneumonia type: unspecified Laterality: unspecified laterality Lung location: unspecified part of lung Qualified Code(s): J69.0 - Pneumonitis due to inhalation of food and vomit (3) COPD exacerbation Current Visit: Yes Status: Acute Patient with mild COPD exacerbation Recommend oral prednisone 40 mg to complete a 5 day course Symbicort and DuoNeb nebs on scheduled basis (4) ESRD (end stage renal disease) Current Visit: Yes Status: Chronic Continue hemodialysis per nephrology recommendations. I suspect a large portion of her problem is related to hydrostatic pulmonary edema from ESRD and heart failure (5) Tobacco abuse Current Visit: Yes Status: Acute Strongly encouraged the patient to stop smoking completely she says that she was going to stop on this admission (6) Goals of care, counseling/discussion Current Visit: Yes Status: Acute Current CODE STATUS is DNR CC which would be a reflection of more of a hospice/palliation approach palliative care following the patient overall prognosis is poor given multiple medical comorbidities reaching their terminal stages. Thank you for this consultation pulmonary will sign off please do not hesitate to call us with questions about this patient or reconsult if different question arises History of Present Illness Consult date: 08/18/18 Requesting physician: Angelo Berkowitz Reason for consult: pneumonia Chief complaint: Difficulty in Breathing History of present illness: This is a 63-year-old woman with a past medical history of atrial fibrillation, COPD, HFpEF, ESRD on dialysis, GI bleeds, HLD, hypertension, PAD, anxiety, depression, schizophrenia who was admitted for difficulty in breathing. CT scan of the chest was notable for bilateral groundglass opacities concerning for a pulmonary edema with possible superimposed left upper lobe pneumonia. Patient was started on ertapenem by infectious disease for concern of aspiration. She never had a leukocytosis or of fever since she has been inpatient. For complicated medical history at baseline chronic respiratory failure and undergoing dialysis for ESRD which has been poorly tolerated palliative care has been consulted recently regarding goals of care. Pulmonary was consulted to evaluate the patient see his there is concern of infectious pneumonia based upon CT scan findings. Patient states that she has been diagnosed with COPD in the past and continues to smoke although she is committed to stopping at this admission. Today she states she feels pretty good yesterday had difficulty breathing but today is better she has had difficult time mobilizing secretions and coughing up phlegm otherwise she has no other complaints Past Med Surg Social Fam HX - Past Medical History Medical history: atrial fibrillation, CHF, COPD, coronary artery disease, diabetes, dialysis, GI bleed, hyperlipidemia, hypertension, myocardial infarction, peripheral artery disease, renal disease Additional medical history: AV fistula for dialysis ++ Psychiatric history: anxiety, depression, schizophrenia, previous psychiatric hospitalization - Past Surgical History Surgical History: angioplasty/stent, appendectomy, cholecystectomy, coronary bypass (CABG), hysterectomy, knee replacement, other, IVC filter Additional surgical history: left arm fistulogram with covered stent placement left basilic vein 2016. kidney stones 1996. double Bypass 1998. stents x5 unsure date. right wrist 2017 - Social History Smoking Status: Current every day smoker Smokeless Tobacco Status: No Alcohol use: none Drug use: none - Family History Father Family Member Ethnicity: Non- Living Status: Hx Family Cardiac Disorders: Yes Hx Family Respiratory Disorders: Yes Hx Family Cancer: Yes (Polycythemia) Hx Family Endocrine Disorder: Yes (DM) Mother Family Member Ethnicity: Non- Living Status: Still Living Hx Family Cardiac Disorders: Yes Hx Family Respiratory Disorders: Yes (asthma, COPD) Brother Adopted: No Family Member Ethnicity: Non- Living Status: Still Living Hx Family Cardiac Disorders: No Hx Family Respiratory Disorders: No Hx Family Cancer: No Hx Family GI Disorders: No Hx Family Endocrine Disorder: No Hx Family Neuromuscular Disorders: No Hx Family Neurologic Disorders: No Hx Family HEENT Disorders: No Hx Family Autoimmune Disorders: No Sister Adopted: No Family Member Ethnicity: Non- Living Status: Still Living Hx Family Cardiac Disorders: Yes Hx Family Respiratory Disorders: No Hx Family Cancer: No Hx Family GI Disorders: No Hx Family Endocrine Disorder: Yes Hx Family Neuromuscular Disorders: No Hx Family Neurologic Disorders: No Hx Family HEENT Disorders: No Hx Family Autoimmune Disorders: No Medications and Allergies Colestipol HCl [Colestid] 1 gm PO BID 06/12/15 [History] Calcium Acetate [Phos-LO] 1,334 mg PO TIDWM 09/06/16 [History] ARIPiprazole [Abilify] 10 mg PO DAILY 09/13/17 [History] Aspirin Enteric Coated [Aspirin EC] 81 mg PO DAILY 09/13/17 [History] Budesonide/Formoterol 160/4.5 [Symbicort 160/4.5] 2 puff IH BIDR 09/13/17 [History] Cholecalciferol (Vitamin D3) [Vitamin D3] 50,000 unit PO TH 09/13/17 [History] Sevelamer [Renvela] 800 mg PO DAILY 09/13/17 [History] Albuterol Neb [AccuNeb] 0.63 mg IH Q6H PRN 10/18/17 [History] amLODIPine [Norvasc] 5 mg PO DAILY 12/30/17 [History] Clopidogrel [Plavix] 75 mg PO DAILY 02/03/18 [History] Rosuvastatin Calcium [Crestor] 20 mg PO DAILY 02/27/18 [History] Amitriptyline [Elavil] 50 mg PO HS tablet 03/24/18 [Rx] Renal Vitamin [Renal Caps Softgel] 1 mg PO DAILY capsule 04/17/18 [Rx] Carvedilol 12.5 mg PO BID 04/28/18 [History] Darbepoetin [Aranesp] 60 mcg SQ FR 04/28/18 [History] Insulin DETEMIR [Levemir] 34 unit SQ HS 04/28/18 [History] Insulin LISPRO [HumaLOG] 2 - 10 units SQ TIDWM 04/28/18 [History] Lactobacillus Acidophilus/Fos [Acidophilus Probiotic Tablet] 1 tab PO DAILY 04/28/18 [History] Omeprazole [PriLOSEC] 20 mg PO DAILY 04/28/18 [History] Isosorbide MONOnitrate (24 HR) [Imdur] 30 mg PO DAILY #30 tab.er.24h 07/04/18 [Rx] Benzonatate [Tessalon] 200 mg PO TID PRN 10 Days #30 capsule 07/22/18 [Rx] Gabapentin [Neurontin] 100 mg PO TID 4 Days #12 capsule 07/22/18 [Rx] OxyCODONE/APAP 5/325 [Percocet 5/325 MG] 1 each PO Q8HR PRN 2 Days #6 tablet 07/22/18 [Rx] Ertapenem [INVanz] 500 mg IVPB DAILY #7 vial 07/26/18 [Rx] Metoclopramide [Reglan] 5 mg PO DAILY 08/13/18 [History] Sucralfate [Carafate] 1 gm PO QIDAC 08/13/18 [History] traZODone [TraZODone] 50 mg PO HS 08/13/18 [History] Allergy/AdvReac Type Severity Reaction Status Date / Time piperacillin [From Zosyn] Allergy Anaphylaxis Verified 07/05/18 10:03 tazobactam [From Zosyn] Allergy Anaphylaxis Verified 07/05/18 10:03 All Systems: The remainder of the systems were reviewed and are negative Physical Examination Vital Signs: Vital Signs, Last 4 Hours Temp Pulse Resp BP Pulse Ox 08/18/18 04:00 97.6 F 90 15 115/51 98 General appearance: no acute distress Eyes: nonicteric ENT: oropharynx moist Neck: supple, no lymphadenopathy Effort: normal Auscultation: bilateral: diminished breath sounds, wheezes (Coarse expiratory wheezes), rales (In lung bases) Cardiovascular: regular rate and rhythm Gastrointestinal: soft, non-tender Integumentary: other (Chronic lower extremity edema and erythema and some ulcerations associated with chronic lymphedema) Extremities: no cyanosis, no clubbing, anasarca Musculoskeletal: no deformities normal mental status, non-focal exam mood appropriate Results - Laboratory Findings CBC and BMP: 08/18/18 04:22 08/18/18 04:22 ABG ABG pH 7.37 pH Units (7.32-7.45) 08/14/18 00:23 ABG pCO2 53 mmHg (35-45) H 08/14/18 00:23 ABG pO2 70 mmHg (85-104) L 08/14/18 00:23 ABG O2 Saturation 93 % (95-98) L 08/14/18 00:23 Abnormal lab findings: Abnormal lab results RBC 3.67 M/mcL (3.82-4.97) L 08/18/18 04:22 Hgb 8.5 g/dL (11.5-15.4) L 08/18/18 04: Hct 29.2 % (35.3-44.9) L 08/18/18 04: MCV 79.6 fL (83.0-100.0) L 08/18/18 04: MCH 23.2 pg (28.0-33.3) L 08/18/18 04: MCHC 29.1 g/dL (31.6-35.5) L 08/18/18 04: RDW 18.6 % (11.5-14.5) H 08/18/18 04: Platelet Estimate Slight Decrease (Normal) L 08/15/18 04:41 Hypochromasia Present (Not Present) A 08/15/18 04:41 Anisocytosis 1+ (Not Present) A 08/15/18 04:41 ABG pCO2 53 mmHg (35-45) H 08/14/18 00:23 ABG pO2 70 mmHg (85-104) L 08/14/18 00:23 ABG HCO3 30 mEq/L (21-27) H 08/14/18 00:23 ABG Total CO2 32 mEq/L (20-26) H 08/14/18 00:23 ABG O2 Saturation 93 % (95-98) L 08/14/18 00:23 ABG Base Excess 4 mEq/L (-2 to 3) H 08/14/18 00:23 Sodium 132 mEq/L (136-145) L 08/18/18 04: Chloride 95 mEq/L (98-107) L 08/18/18 04: BUN 25 mg/dL (8-23) H 08/18/18 04: Creatinine 3.48 mg/dL (0.60-1.20) H 08/18/18 04: Est GFR ( Amer) 16 (> 60) L 08/18/18 04:22 Est GFR (Non-Af Amer) 13 (> 60) L 08/18/18 04:22 Glucose 197 mg/dL (70-105) H 08/18/18 04:22 POC Glucose 249 mg/dL (70-99) H 08/17/18 21:14 Hemoglobin A1c 6.5 % (-5.6) H 08/13/18 00:52 Alkaline Phosphatase 191 Units/L (34-104) H 08/14/18 05:38 B-Natriuretic Peptide 704 pg/mL (Less than 100) H 08/13/18 00:52 Serum Total Protein 6.1 g/dL (6.4-8.9) L 08/14/18 05:38 Albumin 2.9 g/dL (3.5-5.7) L 08/14/18 05:38 Albumin/Globulin Ratio 0.9 (1.1-2.2) L 08/14/18 05:38 - Microbiology Findings Microbiology Findings: Microbiology, Last 48 Hours 08/13/18 06:02 Blood Culture - Final Peripheral Venipuncture No growth. Final report. 08/13/18 05:58 Blood Culture - Final Peripheral Venipuncture No growth. Final report. - Clinical Findings Intake & Output: Intake & Output 08/17/18 08/17/18 08/18/18 15:59 23:59 07:59 Intake Total 60 / 60 220 / 220 Balance 60 / 60 220 / 220 Weight 126.4 kg Consult Discharge Plan - Plan Referrals: NONE,PCP [Primary Care Provider] -
[2018-08-18] MEDS: ARIPiprazole 10 MG TABLET PO SCH (08:03)
[2018-08-18] MEDS: Aspirin Enteric Coated 81 MG Tablet PO SCH (08:03)
[2018-08-18] MEDS: Gabapentin 100 MG CAPSULE PO SCH ×2 (08:04→16:04)
[2018-08-18] MEDS: Sucralfate 1 GM TABLET PO SCH ×3 (08:04→16:04)
[2018-08-18] MEDS: Calcium Acetate 667 MG CAPSULE PO SCH ×3 (08:04→16:04)
[2018-08-18] MEDS ORDERED: *HR* Heparin 5,000 UNIT/ML VIAL ONE (08:07)
[2018-08-18] MEDS: Insulin LISPRO 300 UNITS/3 ML VIAL SQ SCH ×3 (08:10→16:45)
--- NOTE | 2018-08-18 08:57 | General Surg History&Physical ---
Date of Encounter: 08/18/18 Time of Encounter: 08:54 Assessment and Plan (1) Inflammatory breast cancer Current Visit: Yes Status: Acute 63F with multiple comorbidities with concern for inflammatory breast cancer. The redness has been on going for about 4 months per the patient. In addition, her last mammogram was about 1 year ago without finding of any pathology. I have a low suspicion for inflammatory breast cancer and, even though she is thinking that she does not want further surgery, if there is indeed cancer, especially inflammatory breast cancer, a formal evaluation and consultation in the office would be necessary to ensure that 1.) there is no cancer and that the concern for IBC is indeed minimal and 2.) have a full discussion, when she is not on dialysis discussing the findings of her work up and, in that time, there is indeed cancer, we can discuss the risks, benefits, the surgery offered, and decide on how to proceed. follow up with me 2 weeks after discharge order an outpatient mammogram of the left breast prior to d/c order an US of the left breast while an inpatient thank you for the consultation. Look forward to seeing her in the outpatient setting. The assessment and plan as outlined above was discussed with the patient and/or family members who expressed understanding and agreement. All questions were answered. Qualifiers: Laterality: left Qualified Code(s): C50.912 - Malignant neoplasm of unspecified site of left female breast History of Present Illness Chief complaint: concern for inflammatory breast cancer HPI: Ms. Riley is a 63 year old female who presented to the ER 2/2 shortness of breath. She has a history of atrial fibrillation, COPD, CKD requiring dialysis, CHF. She, as of late, has been unable to completely tolerate dialysis. A CT scan of her chest was obtained for pulmonary evaluation when it was noted that her left breast appeared more inflammed as compared to a prior CT of the chest 5 months ago. Per the patient she has not noticed any significant changes, but has noticed more redness in her left breast. No feeling of heaviness, no tenderness, no nipple drainage. She does have a prior history of an partial mastectomy in the same breast. Reportedly no malignancy. General surgery was consulted for evaluation of her breast and to rule out IBC. Of note, when discussing with the patient about the reason for my evaluation, she did make it known that she is not interested in further surgery. Past Med Surg Social Fam HX - Past Medical History Medical history: atrial fibrillation, CHF, COPD, coronary artery disease, diabetes, dialysis, GI bleed, hyperlipidemia, hypertension, myocardial infarction, peripheral artery disease, renal disease Additional medical history: AV fistula for dialysis ++ Psychiatric history: anxiety, depression, schizophrenia, previous psychiatric hospitalization - Past Surgical History Surgical History: angioplasty/stent, appendectomy, cholecystectomy, coronary bypass (CABG), hysterectomy, knee replacement, other, IVC filter Additional surgical history: left arm fistulogram with covered stent placement left basilic vein 2016. kidney stones 1996. double Bypass 1998. stents x5 unsure date. right wrist 2017 - Social History Smoking Status: Current every day smoker Smokeless Tobacco Status: No Alcohol use: none Drug use: none - Family History Father Family Member Ethnicity: Non- Living Status: Hx Family Cardiac Disorders: Yes Hx Family Respiratory Disorders: Yes Hx Family Cancer: Yes (Polycythemia) Hx Family Endocrine Disorder: Yes (DM) Mother Family Member Ethnicity: Non- Living Status: Still Living Hx Family Cardiac Disorders: Yes Hx Family Respiratory Disorders: Yes (asthma, COPD) Brother Adopted: No Family Member Ethnicity: Non- Living Status: Still Living Hx Family Cardiac Disorders: No Hx Family Respiratory Disorders: No Hx Family Cancer: No Hx Family GI Disorders: No Hx Family Endocrine Disorder: No Hx Family Neuromuscular Disorders: No Hx Family Neurologic Disorders: No Hx Family HEENT Disorders: No Hx Family Autoimmune Disorders: No Sister Adopted: No Family Member Ethnicity: Non- Living Status: Still Living Hx Family Cardiac Disorders: Yes Hx Family Respiratory Disorders: No Hx Family Cancer: No Hx Family GI Disorders: No Hx Family Endocrine Disorder: Yes Hx Family Neuromuscular Disorders: No Hx Family Neurologic Disorders: No Hx Family HEENT Disorders: No Hx Family Autoimmune Disorders: No Medications and Allergies Colestipol HCl [Colestid] 1 gm PO BID 06/12/15 [History] Calcium Acetate [Phos-LO] 1,334 mg PO TIDWM 09/06/16 [History] ARIPiprazole [Abilify] 10 mg PO DAILY 09/13/17 [History] Aspirin Enteric Coated [Aspirin EC] 81 mg PO DAILY 09/13/17 [History] Budesonide/Formoterol 160/4.5 [Symbicort 160/4.5] 2 puff IH BIDR 09/13/17 [History] Cholecalciferol (Vitamin D3) [Vitamin D3] 50,000 unit PO TH 09/13/17 [History] Sevelamer [Renvela] 800 mg PO DAILY 09/13/17 [History] Albuterol Neb [AccuNeb] 0.63 mg IH Q6H PRN 10/18/17 [History] amLODIPine [Norvasc] 5 mg PO DAILY 12/30/17 [History] Clopidogrel [Plavix] 75 mg PO DAILY 02/03/18 [History] Rosuvastatin Calcium [Crestor] 20 mg PO DAILY 02/27/18 [History] Amitriptyline [Elavil] 50 mg PO HS tablet 03/24/18 [Rx] Renal Vitamin [Renal Caps Softgel] 1 mg PO DAILY capsule 04/17/18 [Rx] Carvedilol 12.5 mg PO BID 04/28/18 [History] Darbepoetin [Aranesp] 60 mcg SQ FR 04/28/18 [History] Insulin DETEMIR [Levemir] 34 unit SQ HS 04/28/18 [History] Insulin LISPRO [HumaLOG] 2 - 10 units SQ TIDWM 04/28/18 [History] Lactobacillus Acidophilus/Fos [Acidophilus Probiotic Tablet] 1 tab PO DAILY 04/28/18 [History] Omeprazole [PriLOSEC] 20 mg PO DAILY 04/28/18 [History] Isosorbide MONOnitrate (24 HR) [Imdur] 30 mg PO DAILY #30 tab.er.24h 07/04/18 [Rx] Benzonatate [Tessalon] 200 mg PO TID PRN 10 Days #30 capsule 07/22/18 [Rx] Gabapentin [Neurontin] 100 mg PO TID 4 Days #12 capsule 07/22/18 [Rx] OxyCODONE/APAP 5/325 [Percocet 5/325 MG] 1 each PO Q8HR PRN 2 Days #6 tablet 07/22/18 [Rx] Ertapenem [INVanz] 500 mg IVPB DAILY #7 vial 07/26/18 [Rx] Metoclopramide [Reglan] 5 mg PO DAILY 08/13/18 [History] Sucralfate [Carafate] 1 gm PO QIDAC 08/13/18 [History] traZODone [TraZODone] 50 mg PO HS 08/13/18 [History] Allergy/AdvReac Type Severity Reaction Status Date / Time piperacillin [From Zosyn] Allergy Anaphylaxis Verified 07/05/18 10:03 tazobactam [From Zosyn] Allergy Anaphylaxis Verified 07/05/18 10:03 Review of Systems All systems PM: 12 point ROS negative besides HPI findings General Surgery Exam Initial Vital Signs Temp Pulse Resp BP Pulse Ox 97.7 F 77 19 111/47 95 08/13/18 00:32 08/13/18 00:32 08/13/18 00:32 08/13/18 00:32 08/13/18 00:32 - General physical appearance no distress - Eyes normal ocular movement - ENT normocephalic - Neck no lymphadectomy - Respiratory normal expansion, normal respiratory effort - Cardiovascular Cardiovascular exam: Present: irregular rhythm - Abdomen Abdomen general surgery: Present: soft, non tender - Integumentary Integumentary general surgery: Present: other (L breast: mild erythema; no nipple drainage; no palpable mass appreciated; no obvious adenopathy) - Neurologic Present: CN 2-12 grossly intact - Musculoskeletal Present: normal posture - Psychiatric Psychiatric general surgery: Present: A&Ox3 Results - Labs 08/18/18 04:22 08/18/18 04:22 Abnormal lab results RBC 3.67 M/mcL (3.82-4.97) L 08/18/18 04:22 Hgb 8.5 g/dL (11.5-15.4) L 08/18/18 04:22 Hct 29.2 % (35.3-44.9) L 08/18/18 04:22 MCV 79.6 fL (83.0-100.0) L 08/18/18 04:22 MCH 23.2 pg (28.0-33.3) L 08/18/18 04:22 MCHC 29.1 g/dL (31.6-35.5) L 08/18/18 04:22 RDW 18.6 % (11.5-14.5) H 08/18/18 04:22 Platelet Estimate Slight Decrease (Normal) L 08/15/18 04:41 Hypochromasia Present (Not Present) A 08/15/18 04:41 Anisocytosis 1+ (Not Present) A 08/15/18 04:41 ABG pCO2 53 mmHg (35-45) H 08/14/18 00:23 ABG pO2 70 mmHg (85-104) L 08/14/18 00:23 ABG HCO3 30 mEq/L (21-27) H 08/14/18 00:23 ABG Total CO2 32 mEq/L (20-26) H 08/14/18 00:23 ABG O2 Saturation 93 % (95-98) L 08/14/18 00:23 ABG Base Excess 4 mEq/L (-2 to 3) H 08/14/18 00:23 Sodium 132 mEq/L (136-145) L 08/18/18 04:22 Chloride 95 mEq/L (98-107) L 08/18/18 04:22 BUN 25 mg/dL (8-23) H 08/18/18 04:22 Creatinine 3.48 mg/dL (0.60-1.20) H 08/18/18 04:22 Est GFR ( Amer) 16 (> 60) L 08/18/18 04:22 Est GFR (Non-Af Amer) 13 (> 60) L 08/18/18 04:22 Glucose 197 mg/dL (70-105) H 08/18/18 04:22 POC Glucose 249 mg/dL (70-99) H 08/17/18 21:14 Hemoglobin A1c 6.5 % (-5.6) H 08/13/18 00:52 Alkaline Phosphatase 191 Units/L (34-104) H 08/14/18 05:38 B-Natriuretic Peptide 704 pg/mL (Less than 100) H 08/13/18 00:52 Serum Total Protein 6.1 g/dL (6.4-8.9) L 08/14/18 05:38 Albumin 2.9 g/dL (3.5-5.7) L 08/14/18 05:38 Albumin/Globulin Ratio 0.9 (1.1-2.2) L 08/14/18 05:38 Diabetes panel 08/18/18 Range/Units 04:22 Sodium 132 L (136-145) mEq/L Potassium 4.7 (3.5-5.1) mEq/L Chloride 95 L (98-107) mEq/L Carbon Dioxide 29 (23-29) mEq/L BUN 25 H (8-23) mg/dL Creatinine 3.48 H (0.60-1.20) mg/dL Glucose 197 H (70-105) mg/dL Calcium 9.3 (8.6-10.3) mg/dL Calcium panel 08/18/18 Range/Units 04:22 Calcium 9.3 (8.6-10.3) mg/dL Pituitary panel 08/18/18 Range/Units 04:22 Sodium 132 L (136-145) mEq/L Potassium 4.7 (3.5-5.1) mEq/L Chloride 95 L (98-107) mEq/L Carbon Dioxide 29 (23-29) mEq/L BUN 25 H (8-23) mg/dL Creatinine 3.48 H (0.60-1.20) mg/dL Glucose 197 H (70-105) mg/dL Calcium 9.3 (8.6-10.3) mg/dL Adrenal panel 08/18/18 Range/Units 04:22 Sodium 132 L (136-145) mEq/L Potassium 4.7 (3.5-5.1) mEq/L Chloride 95 L (98-107) mEq/L Carbon Dioxide 29 (23-29) mEq/L BUN 25 H (8-23) mg/dL Creatinine 3.48 H (0.60-1.20) mg/dL Glucose 197 H (70-105) mg/dL Calcium 9.3 (8.6-10.3) mg/dL All other labs normal. - Imaging CT scan - chest: report reviewed, image reviewed
--- NOTE | 2018-08-18 11:09 | Infectious Disease Progress No ---
Date of Encounter: 08/18/18 Time of Encounter: 10:50 - Assessment and Plan (1) Acute and chronic respiratory failure Status: Acute - Acute and chronic respiratory failure. Currently tolerating 4 L of supplemental oxygen, home requirement of 3 L - Most likely etiology is fluid overload secondary to incomplete hemodialysis - There is a concern of aspiration pneumonia. - Patient does not meet SIRS criteria with normal vital signs and no leukocytosis - BNP of 704 - Sputum culture on 07/18/18 was positive for ESBL Escherichia coli and Proteus. Patient did complete a course of ertapenem 14 days per previous ID recommendations. Completed 08/02/18 - Blood cultures 08/13/18 negative 2 - Chest x-ray on presentation showed evidence of pulmonary edema without obvious consolidation - Barium swallow did show penetration with thin liquids on 08/13/18 - CT scan 07/16/18 showed diffuse groundglass opacities with bilateral pleural effusions which is most suggestive of pulmonary edema. There is also a left upper lobe focal consolidation which may be concerning for superimposed pne umonia. Also noted were cutaneous thickening of the left breast. - Currently on ertapenem, day 6 - Previously on flagyl, vancomycin, ertapenem Plan - Given that patient is nonseptic and she is back to baseline oxygen requirements, we feel this is most likely secondary to volume overload with CHF/ ESRD and less likely aspiration. - CT scan to show possible evidence of pneumonia - Will treat for a total of 10 days, stop date 08/22 or date of discharge, whichever comes first. Qualifiers: Respiratory failure complication: hypoxia and hypercapnia Qualified Code(s): J96.21 - Acute and chronic respiratory failure with hypoxia; J96.22 - Acute and chronic respiratory failure with hypercapnia (2) (HFpEF) heart failure with preserved ejection fraction Status: Chronic Echocardiogram 03/17/18 shows ejection fraction of 60% with mild diastolic dysfunction. Management per primary team (3) Aspiration pneumonia Status: Suspected As above for acute on chronic respiratory failure Qualifiers: Aspiration pneumonia type: unspecified Laterality: unspecified laterality Lung location: upper lobe of lung Qualified Code(s): J69.0 - Pneumonitis due to inhalation of food and vomit (4) ESRD (end stage renal disease) Status: Chronic - Patient is on dialysis but has been unable to complete sessions - Nephrology is following and has discussed discontinuation of hemodialysis with patient. Currently undergoing UF - Further management per nephrology and primary team - Please renally dose medications and avoid nephrotoxins (5) Fluid overload Status: Acute Per primary team and nephrology Most likely cause of acute respiratory failure Qualifiers: Hypervolemia type: other Qualified Code(s): E87.79 - Other fluid overload (6) Mastitis Status: Suspected - CT scan on 08/17/18 did show possible cutaneous thickening which may be indicative of mastitis versus possible invasive carcinoma - Considered vancomycin, however physical exam was not impressive for mastitis. unlikely source of infection - Patient reports symptoms of breast pain but denies any discharge, erythema, warmth in the surrounding area - Gen. surgery has been consulted by primary team for possible malignancy Plan - Continue to monitor - Consider outpatient workup (7) Sacral decubitus ulcer Status: Acute Present on admission Noninfected appearing Receiving wound care as outpatient and while inpatient Qualifiers: Pressure injury stage: stage 3 Qualified Code(s): L89.153 - Pressure ulcer of sacral region, stage 3 - Subjective Interval history: Patient was seen and examined up and since morning. She states that overall she feels about the same. Her shortness of breath and nonproductive cough have not improved but not worsened. She continues to complain of lower extremity swelling, dyspnea on exertion. She does have a complaint of increased nausea last evening without emesis. She does have some complaints of breast pain but denies any discharge or erythema. She reports her last mammogram approximately a year ago with no previous pathology. Infect Dis PN-Objective Data - Labs CBC & Chem 7: 08/18/18 04:22 08/18/18 04:22 Labs: Laboratory Results - last 24 hr 08/16/18 08/17/18 08/17/18 11:42 11:52 16:19 WBC RBC Hgb Hct MCV MCH MCHC RDW Plt Count MPV Sodium Potassium Chloride Carbon Dioxide BUN Creatinine Est GFR ( Amer) Est GFR (Non-Af Amer) BUN/Creatinine Ratio Glucose POC Glucose 168 H 165 H 189 H Calculated Osmolality Calcium 08/17/18 08/18/18 08/18/18 21:14 04:22 04:22 WBC 7.6 RBC 3.67 L Hgb 8.5 L Hct 29.2 L MCV 79.6 L MCH 23.2 L MCHC 29.1 L RDW 18.6 H Plt Count 141 MPV 11.8 Sodium 132 L Potassium 4.7 Chloride 95 L Carbon Dioxide 29 BUN 25 H Creatinine 3.48 H Est GFR ( Amer) 16 L Est GFR (Non-Af Amer) 13 L BUN/Creatinine Ratio 7 Glucose 197 H POC Glucose 249 H Calculated Osmolality 284 Calcium 9.3 Cultures: Cultures 08/13/18 06:02 Blood Culture - Final Peripheral Venipuncture No growth. Final report. 08/13/18 05:58 Blood Culture - Final Peripheral Venipuncture No growth. Final report. Exam - Constitutional Vitals: Temp Pulse Resp BP Pulse Ox 97.0 F L 92 19 130/74 99 08/18/18 08:25 08/18/18 08:00 08/18/18 08:25 08/18/18 10:25 08/18/18 08:00 Exam: Gen.: Vitals noted. No acute distress. AAOx3 HEENT: PERRL/EOMI, oropharynx clear, Normocephalic, atraumatic, MMM Cardiac: Irregularly irregular, no murmur, +S1/S2 Pulmonary: Decreased sounds at bases mild crackles most prominent in left upper lobe, equal chest expansion Abdomen: soft, mildly tender to palpation of epigastric and left lower quadrant, BS noted, no guarding, no rebound. MSK: no joint swelling noted Extremities: Nonpitting BLE edema with associated erythema which patient states is chronic. There was tenderness to palpation over lower extremities. nontender calf, no cyanosis or clubbing Back: Stage III sacral decubitus ulcer, present on admission Neuro: A&Ox3, moves all extremities, no focal deficits Psych: Appropriate mood and behavior Consult Discharge Plan - Plan Referrals: Luma Mendez MD [Partnered Physician] - (Dr. Mendez office will call the patient for their follow up apt) Prescriptions: RX: OxyCODONE/APAP 5/325 [Percocet 5/325 MG] 1 each PO Q8HR PRN 2 Days #6 tablet PRN Reason: Pain RX: Ertapenem [INVanz] 500 mg IVPB DAILY 4 Days #4 vial - Attending Attestation I examined this patient and my medical decision-making was reviewed with the Resident Physician. I agree with the documented findings, disposition and treatment plan as described except to the extent set forth below.
[2018-08-18] MEDS: (Colestipol Hcl [Colestid] 1 GM) PO SCH (12:30)
[2018-08-18] MEDS: *HR* HYDROcodone/Acet 5/325 mg TABLET PO PRN (12:58)
[2018-08-18 13:04] VITALS: BP 100/77
--- NOTE | 2018-08-18 15:12 | Discharge Summary ---
- NOTES TO OUTPATIENT PROVIDER Notes to Outpatient Provider: Patient to follow up with general surgery for left breast ultrasound and mammogram for suspicion of breast carcinoma Orders not resulted at time of discharge: Pending orders 08/13/18 05:27 Culture,Sputum with Gram Stain [] Stat 08/18/18 13:35 breast ultrasound - left [US breast LT] [US] Stat 08/19/18 04:00 Chem 7 [Basic Metabolic Panel] AM 0400 Complete Blood Count w/o Diff [HEME] AM 0400 08/20/18 04:00 Chem 7 [Basic Metabolic Panel] AM 0400 Complete Blood Count w/o Diff [HEME] AM 0400 08/21/18 04:00 Chem 7 [Basic Metabolic Panel] AM 0400 Complete Blood Count w/o Diff [HEME] AM 0400 08/22/18 04:00 Chem 7 [Basic Metabolic Panel] AM 0400 Complete Blood Count w/o Diff [HEME] AM 0400 08/23/18 04:00 Chem 7 [Basic Metabolic Panel] AM 0400 Complete Blood Count w/o Diff [HEME] AM 0400 08/24/18 04:00 Chem 7 [Basic Metabolic Panel] AM 0400 Complete Blood Count w/o Diff [HEME] AM 0400 08/25/18 04:00 Chem 7 [Basic Metabolic Panel] AM 0400 Date of Encounter: 08/18/18 Time of Encounter: 11:00 - Discharge Diagnosis (1) Aspiration pneumonia Priority: Primary Status: Suspected Qualifiers: Aspiration pneumonia type: unspecified Laterality: right Lung location: lower lobe of lung Qualified Code(s): J69.0 - Pneumonitis due to inhalation of food and vomit (2) Acute and chronic respiratory failure Priority: Primary Status: Acute Qualifiers: Respiratory failure complication: hypoxia and hypercapnia Qualified Code(s): J96.21 - Acute and chronic respiratory failure with hypoxia; J96.22 - Acute and chronic respiratory failure with hypercapnia (3) COPD (chronic obstructive pulmonary disease) Priority: Primary Status: Chronic Qualifiers: COPD type: unspecified COPD Qualified Code(s): J44.9 - Chronic obstructive pulmonary disease, unspecified (4) End-stage renal disease (ESRD) Priority: Primary Status: Chronic (5) Mastitis, left, acute Priority: Primary Status: Acute (6) Hypertension Priority: Secondary Status: Chronic Qualifiers: Hypertension type: essential hypertension Qualified Code(s): I10 - Essential (primary) hypertension (7) Diabetes mellitus Priority: Secondary Status: Chronic Qualifiers: Diabetes mellitus type: type 2 Diabetes mellitus senior care insulin use: with director long term care use Diabetes mellitus complication status: with skin complications Diabetes mellitus complication detail: with other skin complication Qualified Code(s): E11.628 - Type 2 diabetes mellitus with other skin complications; 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 She has been unable to tolerate her full dialysis treatments. She has had to cut several dialysis treatments in half. Her last 2 dialysis treatments were cut prematurely. In the ER, she had imaging and routine labs performed. Imaging of her chest suggested CHF. She makes no urine. She was therefore admitted to hospitalist service with a consult to nephrology for dialysis. During patients hospital stay, she remained on her baseline O2 requirements but was treated with ertapenem due to suspicion of newly developed aspiration pneumonia per pulmonology recommendations. ID consult with recommendations to complete a 10 day course of ertapenem. In addition, incidental finding on CT of the chest of mastitis versus concerns for breast carcinoma or for general surgery was consulted with recommendation for breast ultrasound and mammogram as an outpatient follow-up. Patient is medically stable to discharge back to [facility]. - Time Spent with Patient Total time spent providing and/or coordinating discharge services: Less than 30 minutes - Discharge Medications Prescriptions: OxyCODONE/APAP 5/325 [Percocet 5/325 MG] 1 each PO Q8HR PRN 2 Days #6 tablet PRN Reason: Pain Ertapenem [INVanz] 500 mg IVPB DAILY 4 Days #4 vial Home Medications: Colestipol HCl [Colestid] 1 gm PO BID 06/12/15 [History] Calcium Acetate [Phos-LO] 1,334 mg PO TIDWM 09/06/16 [History] ARIPiprazole [Abilify] 10 mg PO DAILY 09/13/17 [History] Aspirin Enteric Coated [Aspirin EC] 81 mg PO DAILY 09/13/17 [History] Budesonide/Formoterol 160/4.5 [Symbicort 160/4.5] 2 puff IH BIDR 09/13/17 [History] Cholecalciferol (Vitamin D3) [Vitamin D3] 50,000 unit PO TH 09/13/17 [History] Sevelamer [Renvela] 800 mg PO DAILY 09/13/17 [History] Albuterol Neb [AccuNeb] 0.63 mg IH Q6H PRN 10/18/17 [History] amLODIPine [Norvasc] 5 mg PO DAILY 12/30/17 [History] Clopidogrel [Plavix] 75 mg PO DAILY 02/03/18 [History] Rosuvastatin Calcium [Crestor] 20 mg PO DAILY 02/27/18 [History] Amitriptyline [Elavil] 50 mg PO HS tablet 03/24/18 [Rx] Renal Vitamin [Renal Caps Softgel] 1 mg PO DAILY capsule 04/17/18 [Rx] Carvedilol 12.5 mg PO BID 04/28/18 [History] Darbepoetin [Aranesp] 60 mcg SQ FR 04/28/18 [History] Insulin DETEMIR [Levemir] 34 unit SQ HS 04/28/18 [History] Insulin LISPRO [HumaLOG] 2 - 10 units SQ TIDWM 04/28/18 [History] Lactobacillus Acidophilus/Fos [Acidophilus Probiotic Tablet] 1 tab PO DAILY 04/28/18 [History] Omeprazole [PriLOSEC] 20 mg PO DAILY 04/28/18 [History] Isosorbide MONOnitrate (24 HR) [Imdur] 30 mg PO DAILY #30 tab.er.24h 07/04/18 [Rx] Benzonatate [Tessalon] 200 mg PO TID PRN 10 Days #30 capsule 07/22/18 [Rx] Gabapentin [Neurontin] 100 mg PO TID 4 Days #12 capsule 07/22/18 [Rx] Ertapenem [INVanz] 500 mg IVPB DAILY #7 vial 07/26/18 [Rx] Metoclopramide [Reglan] 5 mg PO DAILY 08/13/18 [History] Sucralfate [Carafate] 1 gm PO QIDAC 08/13/18 [History] traZODone [TraZODone] 50 mg PO HS 08/13/18 [History] Acetaminophen [Tylenol] 650 mg PO Q6HR PRN tablet 08/18/18 [Rx] Ertapenem [INVanz] 500 mg IVPB DAILY 4 Days #4 vial 08/18/18 [Rx] OxyCODONE/APAP 5/325 [Percocet 5/325 MG] 1 each PO Q8HR PRN 2 Days #6 tablet 08/18/18 [Rx] Allergies/Adverse Reactions: Allergy/AdvReac Type Severity Reaction Status Date / Time piperacillin [From Zosyn] Allergy Anaphylaxis Verified 07/05/18 10:03 tazobactam [From Zosyn] Allergy Anaphylaxis Verified 07/05/18 10:03 Date of admission: 08/13/18 05:27 Primary care physician: PCP NONE Consults: 08/13/18 05:27 Consult to Wound Care [CONS] Routine Reason for Consult: wound care evaluation; multiple deep wounds on legs Call Completed: No 08/13/18 05:30 Consult to Physician [CONS] Routine Consulting Provider: Fernando Hernandez Reason for Consult: ESRD on HD; needs dialysis Call Completed: No 08/13/18 05:52 Consult to Speech Therapy [CONS] Routine Comment: Evaluate, develop and implement POC Reason for Consult: aspiration pneumonia Call Completed: No 08/13/18 06:19 Consult to Certified Medical Aide [CONS] Routine Reason for SW Consult: patient from [facility] upon discharge 08/13/18 07:15 Consult to Dialysis [CONS] ONCE 08/14/18 05:00 Consult to Palliative Care [CONS] Routine Comment: Consulting Provider: Palliative Care [place] Reason for Consult: Poor prognosis. Call Completed: Yes 08/15/18 06:30 Consult to Dialysis [CONS] ONCE 08/16/18 08:45 Consult to Dialysis [CONS] ONCE 08/16/18 09:33 Consult to Infectious Diseases [CONS] Routine Consulting Provider: Infectious Disease [place] Reason for Consult: concerns for asp pna; h/o ecoli/proteus (sputum) Call Completed: No 08/18/18 07:30 Consult to Dialysis [CONS] ONCE Consult to Dialysis [CONS] ONCE - Constitutional Vitals: Temp Pulse Resp BP Pulse Ox 97.8 F 96 18 100/77 91 08/18/18 13:02 08/18/18 13:02 08/18/18 13:02 08/18/18 13:02 08/18/18 13:02 General appearance: Present: cooperative, mild distress, morbidly obese, answers questions appropriately Exam: Gen.: Nonacute distress, alert and oriented 3 Skin: Normal color - Patient Status Disposition: Home Health Service Condition: Good - Discharge Instructions Follow Up With: Luma Mendez MD [Partnered Physician] - (Dr. Mendez office will call the patient for their follow up apt)
--- NOTE | 2018-08-18 15:13 | Physician Discharge Referral ---
ExtendedCare Referral Info Institutional Level of Care: Skilled - Diagnosis (1) Aspiration pneumonia Status: Suspected (2) Acute and chronic respiratory failure Status: Acute (3) COPD (chronic obstructive pulmonary disease) Status: Chronic (4) End-stage renal disease (ESRD) Status: Chronic (5) Mastitis, left, acute Status: Acute (6) Hypertension Status: Chronic (7) Diabetes mellitus Status: Chronic - Transfer Medications Prescriptions: OxyCODONE/APAP 5/325 [Percocet 5/325 MG] 1 each PO Q8HR PRN 2 Days #6 tablet PRN Reason: Pain Ertapenem [INVanz] 500 mg IVPB DAILY 4 Days #4 vial Home Medications: Colestipol HCl [Colestid] 1 gm PO BID 06/12/15 [History] Calcium Acetate [Phos-LO] 1,334 mg PO TIDWM 09/06/16 [History] ARIPiprazole [Abilify] 10 mg PO DAILY 09/13/17 [History] Aspirin Enteric Coated [Aspirin EC] 81 mg PO DAILY 09/13/17 [History] Budesonide/Formoterol 160/4.5 [Symbicort 160/4.5] 2 puff IH BIDR 09/13/17 [History] Cholecalciferol (Vitamin D3) [Vitamin D3] 50,000 unit PO TH 09/13/17 [History] Sevelamer [Renvela] 800 mg PO DAILY 09/13/17 [History] Albuterol Neb [AccuNeb] 0.63 mg IH Q6H PRN 10/18/17 [History] amLODIPine [Norvasc] 5 mg PO DAILY 12/30/17 [History] Clopidogrel [Plavix] 75 mg PO DAILY 02/03/18 [History] Rosuvastatin Calcium [Crestor] 20 mg PO DAILY 02/27/18 [History] Amitriptyline [Elavil] 50 mg PO HS tablet 03/24/18 [Rx] Renal Vitamin [Renal Caps Softgel] 1 mg PO DAILY capsule 04/17/18 [Rx] Carvedilol 12.5 mg PO BID 04/28/18 [History] Darbepoetin [Aranesp] 60 mcg SQ FR 04/28/18 [History] Insulin DETEMIR [Levemir] 34 unit SQ HS 04/28/18 [History] Insulin LISPRO [HumaLOG] 2 - 10 units SQ TIDWM 04/28/18 [History] Lactobacillus Acidophilus/Fos [Acidophilus Probiotic Tablet] 1 tab PO DAILY 04/28/18 [History] Omeprazole [PriLOSEC] 20 mg PO DAILY 04/28/18 [History] Isosorbide MONOnitrate (24 HR) [Imdur] 30 mg PO DAILY #30 tab.er.24h 07/04/18 [Rx] Benzonatate [Tessalon] 200 mg PO TID PRN 10 Days #30 capsule 07/22/18 [Rx] Gabapentin [Neurontin] 100 mg PO TID 4 Days #12 capsule 07/22/18 [Rx] Ertapenem [INVanz] 500 mg IVPB DAILY #7 vial 07/26/18 [Rx] Metoclopramide [Reglan] 5 mg PO DAILY 08/13/18 [History] Sucralfate [Carafate] 1 gm PO QIDAC 08/13/18 [History] traZODone [TraZODone] 50 mg PO HS 08/13/18 [History] Acetaminophen [Tylenol] 650 mg PO Q6HR PRN tablet 08/18/18 [Rx] Ertapenem [INVanz] 500 mg IVPB DAILY 4 Days #4 vial 08/18/18 [Rx] OxyCODONE/APAP 5/325 [Percocet 5/325 MG] 1 each PO Q8HR PRN 2 Days #6 tablet 08/18/18 [Rx] Allergies/Adverse Reactions: Allergy/AdvReac Type Severity Reaction Status Date / Time piperacillin [From Zosyn] Allergy Anaphylaxis Verified 07/05/18 10:03 tazobactam [From Zosyn] Allergy Anaphylaxis Verified 07/05/18 10:03 - Respiratory Orders Smoking Cessation: Smoking cessation has been advised. For more information, call the [place] Tobacco Quit Line at 6-860-SAQW-NOW. CERTIFICATION: I certify that the transfer of the above named patient to an Extended Care Facility is necessary for the continuing treatment of the diagnosis listed. The above information is true and accurate reflection of patient's current condition. Confidential - Redisclosure prohibited without a patient's written consent.
--- NOTE | 2018-08-18 16:07 | Nephrology Progress Note ---
Date of Encounter: 08/18/18 Time of Encounter: 12:00 - Assessment and Plan (1) Acute and chronic respiratory failure Current Visit: Yes Status: Acute Qualifiers: Respiratory failure complication: hypoxia and hypercapnia Qualified Code(s): J96.21 - Acute and chronic respiratory failure with hypoxia; J96.22 - Acute and chronic respiratory failure with hypercapnia (2) Acute CHF Current Visit: Yes Status: Acute Qualifiers: Heart failure type: unspecified Qualified Code(s): I50.9 - Heart failure, unspecified (3) Anemia in chronic kidney disease, on chronic dialysis Current Visit: No Status: Chronic (4) Type 2 diabetes mellitus with ESRD (end-stage renal disease) Current Visit: No Status: Chronic (5) End-stage renal disease on hemodialysis Current Visit: No Status: Chronic (6) Volume overload Current Visit: Yes Status: Acute Qualifiers: Hypervolemia type: unspecified Qualified Code(s): E87.70 - Fluid overload, unspecified Subjective Principal diagnosis: ESRD, Shortness of breath Interval history: Pt seen and examined on HD doing well with no complaints. Objective - Vital Signs Vital signs: Vital Signs Temp Pulse Resp BP Pulse Ox 08/18/18 13:02 97.8 F 96 18 100/77 91 08/18/18 12:17 97.4 F L 18 140/60 08/18/18 11:40 130/56 08/18/18 11:25 136/65 08/18/18 11:10 131/67 08/18/18 10:55 134/63 08/18/18 10:40 137/71 08/18/18 10:25 130/74 08/18/18 10:10 126/65 08/18/18 09:55 129/60 08/18/18 09:40 114/64 08/18/18 09:25 111/51 08/18/18 09:10 106/73 08/18/18 08:55 115/70 08/18/18 08:40 139/68 08/18/18 08:25 97.0 F L 19 141/79 08/18/18 08:00 97.5 F L 92 16 133/71 99 08/18/18 07:51 20 97 08/18/18 04:00 97.6 F 90 15 115/51 98 08/17/18 20:36 14 94 08/17/18 20:00 97.6 F 97 15 120/73 95 08/17/18 16:31 90 117/67 Intake and Output 08/18/18 08/18/18 08/18/18 07:59 15:59 23:59 Intake Total 220 / 220 600 / 600 Output Total 52 / 5212 Balance 220 / 220 -4612 / -4612 Intake: IV Fluids 100 / 100 INVanz 500 MG In 0.9 % Sodium 100 / 100 Chloride 100 ML @ 100 mls/hr IVPB HS NATALIE Rx#:[id number] Oral 120 / 120 0 / 0 Intake, Rinseback and Flushes 600 / 600 Output: Urine 0 / 0 Total Dialysis (HD) Output 5211 Other: Weight 126.4 kg 126.4 kg Blood Glucose* 182 Hemodialysis Net Fluid Removed 4612 (mL) Patient Weight 08/18/18 23:59 Weight 126.4 kg - Lab 08/18/18 04:22 08/18/18 04:22 Most recent lab results ABG pH 7.37 pH Units (7.32-7.45) 08/14/18 00:23 ABG pCO2 53 mmHg (35-45) H 08/14/18 00:23 ABG pO2 70 mmHg (85-104) L 08/14/18 00:23 ABG HCO3 30 mEq/L (21-27) H 08/14/18 00:23 ABG O2 Saturation 93 % (95-98) L 08/14/18 00:23 Calcium 9.3 mg/dL (8.6-10.3) 08/18/18 04:22 Magnesium 2.0 mg/dL (1.6-2.6) 08/14/18 05:38 Consult Discharge Plan - Plan Referrals: Luma Mendez MD [Partnered Physician] - (Dr. Mendez office will call the patient for their follow up apt) Prescriptions: OxyCODONE/APAP 5/325 [Percocet 5/325 MG] 1 each PO Q8HR PRN 2 Days #6 tablet PRN Reason: Pain Ertapenem [INVanz] 500 mg IVPB DAILY 4 Days #4 vial
[2018-08-18] MEDS: Ondansetron 4 MG/2 ML VIAL IVP PRN (16:10)
== END 2018-08-18 19:03 | disposition home health service (06) | DRG 177 ==
LOC: EMEROOARM 00:21 → 2NENU 00:21 → SUATTDRO 05:27
PROVIDERS: ADMIT Pediatrics; ATTEND Hospitalist

== ENCOUNTER 2018-08-25 02:23 | Inpatient (IN) ==
--- NOTE | 2018-08-25 02:33 | Emergency Department Note ---
Disposition Clinical Impression: Acute on chronic respiratory failure Qualifiers: Respiratory failure complication: hypoxia Qualified Code(s): J96.21 - Acute and chronic respiratory failure with hypoxia Disposition: Admitted As Inpatient Condition: Fair Referrals: Palmira Quintana DO [Primary Care Provider] - General Adult HPI - General Stated complaint: mele Time Seen by Provider: 08/25/18 02:25 - Related Data Home Medications Medication Instructions Recorded Confirmed Colestipol HCl [Colestid] 1 gm PO BID 06/12/15 08/13/18 Calcium Acetate [Phos-LO] 1,334 mg PO TIDWM 09/06/16 08/13/18 ARIPiprazole [Abilify] 10 mg PO DAILY 09/13/17 08/13/18 Aspirin Enteric Coated [Aspirin EC] 81 mg PO DAILY 09/13/17 08/13/18 Budesonide/Formoterol 160/4.5 2 puff IH BIDR 09/13/17 08/13/18 [Symbicort 160/4.5] Cholecalciferol (Vitamin D3) 50,000 unit PO TH 09/13/17 08/13/18 [Vitamin D3] Sevelamer [Renvela] 800 mg PO DAILY 09/13/17 08/13/18 Albuterol Neb [AccuNeb] 0.63 mg IH Q6H PRN 10/18/17 08/13/18 amLODIPine [Norvasc] 5 mg PO DAILY 12/30/17 08/13/18 Clopidogrel [Plavix] 75 mg PO DAILY 02/03/18 08/13/18 Rosuvastatin Calcium [Crestor] 20 mg PO DAILY 02/27/18 08/13/18 Carvedilol 12.5 mg PO BID 04/28/18 08/13/18 Darbepoetin [Aranesp] 60 mcg SQ FR 04/28/18 08/13/18 Insulin DETEMIR [Levemir] 34 unit SQ HS 04/28/18 08/13/18 Insulin LISPRO [HumaLOG] 2 - 10 units SQ TIDWM 04/28/18 08/13/18 Lactobacillus Acidophilus/Fos 1 tab PO DAILY 04/28/18 08/13/18 [Acidophilus Probiotic Tablet] Omeprazole [PriLOSEC] 20 mg PO DAILY 04/28/18 08/13/18 Metoclopramide [Reglan] 5 mg PO DAILY 08/13/18 08/13/18 Sucralfate [Carafate] 1 gm PO QIDAC 08/13/18 08/13/18 traZODone [TraZODone] 50 mg PO HS 08/13/18 08/13/18 Previous Rx's Medication Instructions Recorded Amitriptyline [Elavil] 50 mg PO HS tablet 03/24/18 Renal Vitamin [Renal Caps Softgel] 1 mg PO DAILY capsule 04/17/18 Isosorbide MONOnitrate (24 HR) 30 mg PO DAILY #30 tab.er.24h 07/04/18 [Imdur] Benzonatate [Tessalon] 200 mg PO TID PRN 10 Days #30 07/22/18 capsule Gabapentin [Neurontin] 100 mg PO TID 4 Days #12 capsule 07/22/18 Ertapenem [INVanz] 500 mg IVPB DAILY #7 vial 07/26/18 Acetaminophen [Tylenol] 650 mg PO Q6HR PRN tablet 08/18/18 OxyCODONE/APAP 5/325 [Percocet 1 each PO Q8HR PRN 2 Days #6 tablet 08/18/18 5/325 MG] Allergies Allergy/AdvReac Type Severity Reaction Status Date / Time piperacillin [From Zosyn] Allergy Anaphylaxis Verified 07/05/18 10:03 tazobactam [From Zosyn] Allergy Anaphylaxis Verified 07/05/18 10:03 Past Medical History - Past Medical History Medical history: Reports: atrial fibrillation, CHF, COPD, coronary artery disease, diabetes, dialysis, GI bleed, hyperlipidemia, hypertension, myocardial infarction, peripheral artery disease, renal disease Surgical history: Reports: angioplasty/stent, appendectomy, cholecystectomy, coronary bypass (CABG), hysterectomy, knee replacement, other, IVC filter Psychiatric history: Reports: anxiety, depression, schizophrenia, previous psychiatric hospitalization 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: 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: other - Social History Smoking Status: Current every day smoker Smokeless Tobacco Status: No Alcohol use: Reports: none Drug use: Reports: none Course Vital Signs Temperature 97.5 F L 08/25/18 02:31 Pulse Rate 101 08/25/18 02:31 Respiratory Rate 22 08/25/18 02:31 Blood Pressure 113/97 08/25/18 02:31 O2 Sat by Pulse Oximetry 96 08/25/18 02:31 Temperature 97.5 F L 08/25/18 02:31 Pulse Rate 104 08/25/18 03:35 Respiratory Rate 20 08/25/18 03:35 Blood Pressure 119/47 08/25/18 03:35 O2 Sat by Pulse Oximetry 99 08/25/18 03:35 Oxygen Delivery Oxygen Delivery Bipap Medical Decision Making - Lab Data Result diagrams: 08/25/18 03:36 08/25/18 03:36 Lab Results 08/25/18 08/25/18 08/25/18 Range/Units 02:39 03:36 03:36 WBC 19.4 H D (4.3-11.1) K/mcL RBC 3.97 (3.82-4.97) M/mcL Hgb 9.0 L (11.5-15.4) g/dL Hct 31.1 L (35.3-44.9) % MCV 78.3 L (83.0-100.0) fL MCH 22.7 L (28.0-33.3) pg MCHC 28.9 L (31.6-35.5) g/dL RDW 19.5 H (11.5-14.5) % Plt Count 198 D (140-400) K/mcL MPV 12.2 (9.4-12.4) fL Immature Gran % 0.4 (0-4) % Seg Neutrophils % 92.2 % Lymphocytes % 2.4 % Monocytes % 4.6 % Eosinophils % 0.2 % Basophils % 0.2 % Neutrophils # 17.9 H (1.6-8.9) K/mcL Lymphocytes # 0.5 L (0.6-4.6) K/mcL Monocytes # 0.9 (0.0-1.3) K/mcL Eosinophils # 0.0 (0.0-0.6) K/mcL Basophils # 0.0 (0.0-0.2) K/mcL Platelet Estimate Normal (Normal) Hypochromasia Present A (Not Present) Anisocytosis 1+ A (Not Present) Sample Site R Radial ABG pH 7.36 (7.32-7.45) pH Units ABG pCO2 50 H (35-45) mmHg ABG pO2 53 L (85-104) mmHg ABG HCO3 29 H (21-27) mEq/L ABG Total CO2 30 H (20-26) mEq/L ABG O2 Saturation 85 L (95-98) % ABG Base Excess 2 (-2 to 3) mEq/L Ricardo Test Positive O2 Delivery Device BiPAP Inspired O2 30.0 (1-15=lpm [id number]=%) Sodium 135 L (136-145) mEq/L Potassium 5.0 (3.5-5.1) mEq/L Chloride 100 (98-107) mEq/L Carbon Dioxide 26 (23-29) mEq/L BUN 26 H (8-23) mg/dL Creatinine 3.71 H (0.60-1.20) mg/dL Est GFR ( Amer) 15 L (> 60) Est GFR (Non-Af Amer) 12 L (> 60) BUN/Creatinine Ratio 7 (6-26) Glucose 141 H (70-105) mg/dL Calculated Osmolality 287 (280-300) Calcium 9.1 (8.6-10.3) mg/dL Critical Care Time Critical Care Time: Yes Total Critical Care Time: 30 Attestation: The high probability of a clinically significant, sudden or life threatening de terioration of the [] system(s) required my full and direct attention, intervention and personal management. The aggregate critical care time was [] minutes. This time is in addition to time spent performing reported procedures but includes the following: [] Data Review and interpretation [] Patient assessment and monitoring of vital signs [] Documentation [] Medication orders and management Attestation Statement - Attestation Attestation: I examined this patient and my medical decision-making was reviewed with the Resident Physician. I agree with the documented findings, disposition and treatment plan as described except to the extent set forth below. [id number] time provided Patient presents from the [facility] [place] with hypoxia. She has a known history of oxygen dependency. Coarse breath sounds on exam. The patient does respond to verbal stimuli. Plan of care and management discussed by me with the resident physician Left-sided 20-gauge external jugular line placed by me due to the inability of nursing staff to obtain peripheral IV access.
--- NOTE | 2018-08-25 02:37 | Emergency Department Note ---
Disposition Clinical Impression: Anemia of chronic disease, COPD exacerbation, Wounds, multiple Acute on chronic respiratory failure Qualifiers: Respiratory failure complication: hypoxia Qualified Code(s): J96.21 - Acute and chronic respiratory failure with hypoxia Congestive heart failure (CHF) Qualifiers: Heart failure type: diastolic Heart failure chronicity: chronic Qualified Code(s): I50.32 - Chronic diastolic (congestive) heart failure Leukocytosis Qualifiers: Leukocytosis type: unspecified Qualified Code(s): D72.829 - Elevated white blood cell count, unspecified Disposition: Admitted As Inpatient Condition: Fair Referrals: Palmira Quintana DO [Primary Care Provider] - Time of Disposition: 05:50 General Adult HPI - General Stated complaint: hernán Time Seen by Provider: 08/25/18 02:25 Nursing Notes Reviewed: Yes Vital Signs Reviewed: Yes - History of Present Illness HPI Narrative: 63 year old female presents for difficulty breathing and hypoxia. Patient is a resident of [facility]. EMS reports that patient was 80% on 3L mask. EMS gave 8L with improvement of oxygen saturation to 90%. EMS is familiar with patient as she comes to hospital frequently. They state she is acting normally except a little sleepy. EMS reports patient was given a breathing treatment prior to EMS arrival. - Related Data Home Medications Medication Instructions Recorded Confirmed Colestipol HCl [Colestid] 1 gm PO BID 06/12/15 08/13/18 Calcium Acetate [Phos-LO] 1,334 mg PO TIDWM 09/06/16 08/13/18 ARIPiprazole [Abilify] 10 mg PO DAILY 09/13/17 08/13/18 Aspirin Enteric Coated [Aspirin EC] 81 mg PO DAILY 09/13/17 08/13/18 Budesonide/Formoterol 160/4.5 2 puff IH BIDR 09/13/17 08/13/18 [Symbicort 160/4.5] Cholecalciferol (Vitamin D3) 50,000 unit PO TH 09/13/17 08/13/18 [Vitamin D3] Sevelamer [Renvela] 800 mg PO DAILY 09/13/17 08/13/18 Albuterol Neb [AccuNeb] 0.63 mg IH Q6H PRN 10/18/17 08/13/18 amLODIPine [Norvasc] 5 mg PO DAILY 12/30/17 08/13/18 Clopidogrel [Plavix] 75 mg PO DAILY 02/03/18 08/13/18 Rosuvastatin Calcium [Crestor] 20 mg PO DAILY 02/27/18 08/13/18 Carvedilol 12.5 mg PO BID 04/28/18 08/13/18 Darbepoetin [Aranesp] 60 mcg SQ FR 04/28/18 08/13/18 Insulin DETEMIR [Levemir] 34 unit SQ HS 04/28/18 08/13/18 Insulin LISPRO [HumaLOG] 2 - 10 units SQ TIDWM 04/28/18 08/13/18 Lactobacillus Acidophilus/Fos 1 tab PO DAILY 04/28/18 08/13/18 [Acidophilus Probiotic Tablet] Omeprazole [PriLOSEC] 20 mg PO DAILY 04/28/18 08/13/18 Metoclopramide [Reglan] 5 mg PO DAILY 08/13/18 08/13/18 Sucralfate [Carafate] 1 gm PO QIDAC 08/13/18 08/13/18 traZODone [TraZODone] 50 mg PO HS 08/13/18 08/13/18 Previous Rx's Medication Instructions Recorded Amitriptyline [Elavil] 50 mg PO HS tablet 03/24/18 Renal Vitamin [Renal Caps Softgel] 1 mg PO DAILY capsule 04/17/18 Isosorbide MONOnitrate (24 HR) 30 mg PO DAILY #30 tab.er.24h 07/04/18 [Imdur] Benzonatate [Tessalon] 200 mg PO TID PRN 10 Days #30 07/22/18 capsule Gabapentin [Neurontin] 100 mg PO TID 4 Days #12 capsule 07/22/18 Ertapenem [INVanz] 500 mg IVPB DAILY #7 vial 07/26/18 Acetaminophen [Tylenol] 650 mg PO Q6HR PRN tablet 08/18/18 OxyCODONE/APAP 5/325 [Percocet 1 each PO Q8HR PRN 2 Days #6 tablet 08/18/18 5/325 MG] Allergies Allergy/AdvReac Type Severity Reaction Status Date / Time piperacillin [From Zosyn] Allergy Anaphylaxis Verified 07/05/18 10:03 tazobactam [From Zosyn] Allergy Anaphylaxis Verified 07/05/18 10:03 Limitations: ROS unobtainable due to patients medical condition Past Medical History - Past Medical History Medical history: Reports: atrial fibrillation, CHF, COPD, coronary artery disease, diabetes, dialysis, GI bleed, hyperlipidemia, hypertension, myocardial infarction, peripheral artery disease, renal disease Surgical history: Reports: angioplasty/stent, appendectomy, cholecystectomy, coronary bypass (CABG), hysterectomy, knee replacement, other, IVC filter Psychiatric history: Reports: anxiety, depression, schizophrenia, previous psychiatric hospitalization [employer]NA[employer] history: Reports: other - Social History Smoking Status: Current every day smoker Smokeless Tobacco Status: No Alcohol use: Reports: none Drug use: Reports: none Physical Exam - General General appearance: alert, other (drowsy) - Head Head exam: atraumatic, normocephalic - Eye Eye exam: Present: PERRL, EOMI - Neck Neck exam: Present: normal inspection - Chest Chest inspection: Present: normal inspection, symmetric chest wall rise - Respiratory Respiratory exam: Present: respiratory distress, other (diffuse coarse breath sounds ). Absent: normal lung sounds bilaterally, wheezes, stridor - Cardiovascular Cardiovascular exam: Present: irregular rhythm. Absent: systolic murmur, diastolic murmur - Extremities Exam Extremities exam: Present: pedal edema, other (Pitting edema. Right foot is bandaged. ). Absent: normal inspection, tenderness, joint swelling - Skin Skin exam: Present: warm, dry, intact, normal color, other (Bandage on bilateral forearms, they show purulent abrasions. ) Course Course Narrative: 63 year old female with history of COPD, CHF, Afib, diabetes, renal disease on dialysis, HTN, HLD, CAD, PAD presents for hypoxia. On presentation, patient was tachycardic at 101 and tachypneic at 22. Patient is alert but appears drowsy. She follows commands and attempts to answer questions. Coarse breath sounds are grossly audible. On exam, there are diffuse coarse breath sounds bilaterally. Will check labwork and EKG. Will check CXR. Will place on BiPap. Review of medical records indicates patient was recently admitted 12 days ago for [facility]ERN[facility]N. Patient was treated for CHF exacerbation with dialysis. And patient received ertapenem for possible aspiration pneumonia. - Reevaluation(s) Reevaluation #1: EKG shows A-fib, rate controlled. ABG shows normal pH. pCO2 is elevated but at baseline. pO2 is decreased at 53 and is lower than baseline 70. CBC shows leukocytosis at 19.4 with neutrophilic predominance. Four days ago, WBC was 6.9. CBC is unremarkable. BNP is elevated at 800, was 700 twelve days ago. CXR shows increased pulmonary edema. Tachycardia and tachypnea are resolved. Time: 04:43 Reevaluation #2: Patient has purulent abrasions on bilateral forearms, possibly the cause of leukocytosis. Will provide ertapenem and vanc, per hospitalist. Time: 05:41 Vital Signs Temperature 97.5 F L 08/25/18 02:31 Pulse Rate 101 08/25/18 02:31 Respiratory Rate 22 08/25/18 02:31 Blood Pressure 113/97 08/25/18 02:31 O2 Sat by Pulse Oximetry 96 08/25/18 02:31 Temperature 97.5 F L 08/25/18 02:31 Pulse Rate 104 08/25/18 03:35 Respiratory Rate 20 08/25/18 03:35 Blood Pressure 119/47 08/25/18 03:35 O2 Sat by Pulse Oximetry 95 08/25/18 04:26 Oxygen Delivery Oxygen Delivery Bipap Medical Decision Making - [facility] Narrative Medical decision making narrative: Chest X-Ray 08/25/18 02:31 IMPRESSION: Persistent findings of pulmonary edema, slightly increased from prior exam. Worsening perihilar bibasilar consolidation, also likely related to pulmonary edema. D/ / Noé Oconnor MD / Noé Oconnor MD Interpreting Provider: Noé Oconnor MD - Medical Records Medical records reviewed: Yes I reviewed the patient's medical records. - Lab Data Lab results reviewed: Yes I reviewed the patient's lab results. Result diagrams: 08/25/18 03:36 08/25/18 03:36 Lab Results 08/25/18 08/25/18 08/25/18 Range/Units 02:39 03:36 03:36 WBC 19.4 H D (4.3-11.1) K/mcL RBC 3.97 (3.82-4.97) M/mcL Hgb 9.0 L (11.5-15.4) g/dL Hct 31.1 L (35.3-44.9) % MCV 78.3 L (83.0-100.0) fL MCH 22.7 L (28.0-33.3) pg MCHC 28.9 L (31.6-35.5) g/dL RDW 19.5 H (11.5-14.5) % Plt Count 198 D (140-400) K/mcL MPV 12.2 (9.4-12.4) fL Immature Gran % 0.4 (0-4) % Seg Neutrophils % 92.2 % Lymphocytes % 2.4 % Monocytes % 4.6 % Eosinophils % 0.2 % Basophils % 0.2 % Neutrophils # 17.9 H (1.6-8.9) K/mcL Lymphocytes # 0.5 L (0.6-4.6) K/mcL Monocytes # 0.9 (0.0-1.3) K/mcL Eosinophils # 0.0 (0.0-0.6) K/mcL Basophils # 0.0 (0.0-0.2) K/mcL Platelet Estimate Normal (Normal) Hypochromasia Present A (Not Present) Anisocytosis 1+ A (Not Present) Sample Site R Radial ABG pH 7.36 (7.32-7.45) pH Units ABG pCO2 50 H (35-45) mmHg ABG pO2 53 L (85-104) mmHg ABG HCO3 29 H (21-27) mEq/L ABG Total CO2 30 H (20-26) mEq/L ABG O2 Saturation 85 L (95-98) % ABG Base Excess 2 (-2 to 3) mEq/L Ricardo Test Positive O2 Delivery Device BiPAP Inspired O2 30.0 (1-15=lpm [id number]=%) Sodium 135 L (136-145) mEq/L Potassium 5.0 (3.5-5.1) mEq/L Chloride 100 (98-107) mEq/L Carbon Dioxide 26 (23-29) mEq/L BUN 26 H (8-23) mg/dL Creatinine 3.71 H (0.60-1.20) mg/dL Est GFR ( Amer) 15 L (> 60) Est GFR (Non-Af Amer) 12 L (> 60) BUN/Creatinine Ratio 7 (6-26) Glucose 141 H (70-105) mg/dL Calculated Osmolality 287 (280-300) Calcium 9.1 (8.6-10.3) mg/dL B-Natriuretic Peptide (Less than 100) pg/mL 08/25/18 Range/Units 03:36 WBC (4.3-11.1) K/mcL RBC (3.82-4.97) M/mcL Hgb (11.5-15.4) g/dL Hct (35.3-44.9) % MCV (83.0-100.0) fL MCH (28.0-33.3) pg MCHC (31.6-35.5) g/dL RDW (11.5-14.5) % Plt Count (140-400) K/mcL MPV (9.4-12.4) fL Immature Gran % (0-4) % Seg Neutrophils % % Lymphocytes % % Monocytes % % Eosinophils % % Basophils % % Neutrophils # (1.6-8.9) K/mcL Lymphocytes # (0.6-4.6) K/mcL Monocytes # (0.0-1.3) K/mcL Eosinophils # (0.0-0.6) K/mcL Basophils # (0.0-0.2) K/mcL Platelet Estimate (Normal) Hypochromasia (Not Present) Anisocytosis (Not Present) Sample Site ABG pH (7.32-7.45) pH Units ABG pCO2 (35-45) mmHg ABG pO2 (85-104) mmHg ABG HCO3 (21-27) mEq/L ABG Total CO2 (20-26) mEq/L ABG O2 Saturation (95-98) % ABG Base Excess (-2 to 3) mEq/L Ricardo Test O2 Delivery Device Inspired O2 (1-15=lpm [id number]=%) Sodium (136-145) mEq/L Potassium (3.5-5.1) mEq/L Chloride (98-107) mEq/L Carbon Dioxide (23-29) mEq/L BUN (8-23) mg/dL Creatinine (0.60-1.20) mg/dL Est GFR ( Amer) (> 60) Est GFR (Non-Af Amer) (> 60) BUN/Creatinine Ratio (6-26) Glucose (70-105) mg/dL Calculated Osmolality (280-300) Calcium (8.6-10.3) mg/dL B-Natriuretic Peptide 852 H (Less than 100) pg/mL - Radiology Data Radiology results reviewed: Yes I reviewed the patient's radiology results. - EKG Data EKG #1 EKG attestation: Yes I reviewed and interpreted this EKG. EKG results narrative: EKG 08/25/18 03:01. Atrial fibrillation. Heart rate 98. No ST segment elevation or depression.
[2018-08-25 02:43] LABS: ABG Base Excess 2 mEq/L (-2 to 3); ABG HCO3 29 mEq/L (21-27); ABG Oxygen Saturation 85 % (95-98); ABG PCO2 50 mmHg (35-45); ABG PH 7.36 pH Units (7.32-7.45); ABG PO2 53 mmHg (85-104); ABG TCO2 30 mEq/L (20-26)
[2018-08-25 03:48] LABS: Basophils % 0.2 %; Eosinophils % 0.2 %; Lymphocytes % 2.4 %
[2018-08-25 03:50] LABS: Hematocrit 31.1 % (35.3-44.9); Immature Granulocytes % 0.4 % (0-4); Lymphocytes # 0.5 K/mcL (0.6-4.6); Mean Corpuscular HGB Conc 28.9 g/dL (31.6-35.5); Mean Corpuscular Hemoglobin 22.7 pg (28.0-33.3); Mean Corpuscular Volume 78.3 fL (83.0-100.0); Mean Platelet Volume 12.2 fL (9.4-12.4); Monocytes # 0.9 K/mcL (0.0-1.3); Monocytes % 4.6 %; Neutrophils # 17.9 K/mcL (1.6-8.9); Platelet Count 198 K/mcL (140-400); Red Blood Count 3.97 M/mcL (3.82-4.97); Red Cell Distribution Width 19.5 % (11.5-14.5); Segmented Neutrophils % 92.2 %
[2018-08-25 04:05] LABS: Hypochromasia Present (Not Present); Platelet Estimate Normal (Normal)
[2018-08-25 04:06] LABS: Anisocytosis 1+ (Not Present)
[2018-08-25 04:10] LABS: Calcium 9.1 mg/dL (8.6-10.3)
[2018-08-25] MEDS ORDERED: D5% in Water 1,000 ML IVC PRN (05:02)
[2018-08-25] MEDS ORDERED: Dextrose Gel 15 GM/37.5 ML TUBE PO PRN ×2 (05:02)
[2018-08-25] MEDS ORDERED: *HR* Dextrose 50 % in Water (Syg) 50 ML SYRINGE IVP PRN (05:02)
--- NOTE | 2018-08-25 05:02 | Internal Med History&Physical ---
Date of Encounter: 08/25/18 Time of Encounter: 04:58 Internal Medicine - H&P: HPI Chief complaint: Shortness of breath Admitted From: Emergency Dept Plans for Post Hospital Care: Home History of present illness: Ms. Riley is a 63 year old female with history of COPD on chronic 3 L nasal cannula oxygen, end-stage renal disease on dialysis, A. fib, coronary artery disease status post CABG and stents, hypertension, hyperlipidemia, CHF, diabetes mellitus, who presented from her intermediate facility with acute respiratory failure. The patient apparently was satting in the 80s per EMS on 3 L and was put on 8 L were her sats went up to the 90s. Eventually she was put on Bipap. Patient is known to our service and has had many admissions in the past. This would be her 22nd admission in 2018. She has been evaluated by palliative and Hospice has been brought up in the past but she is still receiving full medical care. The patient was discharged 7 days ago after a stay for volume overload. It was suspected that the patient had aspiration pneumonia as well and was put on ertapenem and discharged to finish 4 more days for a 10 day total, although it was not very convincing that she had pneumonia at the time. This time in the ED she had labs showing leukocytosis of 19.4 with it being normal 4 days ago. BNP around 850. CXR showed worsening pulm edema vs. infiltrates. ABG with PH 7.36, PCO2 50, PO2 53, HCO3 29. This was on Bipap. No reported fever. Has a cough that is dry. The patient of note was also evaluated in the ED 4 days ago after she had a fall and had an abrasion to her left upper extremity in the forearm area. She was discharged back to her nursing facility as well as suspected that it was only an abrasion. Past Med Surg Social Fam HX - Past Medical History Medical history: atrial fibrillation, CHF, COPD, coronary artery disease, diabetes, dialysis, GI bleed, hyperlipidemia, hypertension, myocardial infarction, peripheral artery disease, renal disease Additional medical history: AV fistula for dialysis ++ Psychiatric history: anxiety, depression, schizophrenia, previous psychiatric hospitalization - Past Surgical History Surgical History: angioplasty/stent, appendectomy, cholecystectomy, coronary bypass (CABG), hysterectomy, knee replacement, other, IVC filter Additional surgical history: left arm fistulogram with covered stent placement left basilic vein 2016. kidney stones 1996. double Bypass 1998. stents x5 unsure date. right wrist 2017 - Social History Smoking Status: Current every day smoker Smokeless Tobacco Status: No Alcohol use: none Drug use: none - Family History Father Family Member Ethnicity: Non- Living Status: Hx Family Cardiac Disorders: Yes Hx Family Respiratory Disorders: Yes Hx Family Cancer: Yes (Polycythemia) Hx Family Endocrine Disorder: Yes (DM) Mother Family Member Ethnicity: Non- Living Status: Still Living Hx Family Cardiac Disorders: Yes Hx Family Respiratory Disorders: Yes (asthma, COPD) Brother Adopted: No Family Member Ethnicity: Non- Living Status: Still Living Hx Family Cardiac Disorders: No Hx Family Respiratory Disorders: No Hx Family Cancer: No Hx Family GI Disorders: No Hx Family Endocrine Disorder: No Hx Family Neuromuscular Disorders: No Hx Family Neurologic Disorders: No Hx Family HEENT Disorders: No Hx Family Autoimmune Disorders: No Sister Adopted: No Family Member Ethnicity: Non- Living Status: Still Living Hx Family Cardiac Disorders: Yes Hx Family Respiratory Disorders: No Hx Family Cancer: No Hx Family GI Disorders: No Hx Family Endocrine Disorder: Yes Hx Family Neuromuscular Disorders: No Hx Family Neurologic Disorders: No Hx Family HEENT Disorders: No Hx Family Autoimmune Disorders: No Internal Medicine - H&P: Meds Colestipol HCl [Colestid] 1 gm PO BID 06/12/15 [History] Calcium Acetate [Phos-LO] 1,334 mg PO TIDWM 09/06/16 [History] ARIPiprazole [Abilify] 10 mg PO DAILY 09/13/17 [History] Aspirin Enteric Coated [Aspirin EC] 81 mg PO DAILY 09/13/17 [History] Budesonide/Formoterol 160/4.5 [Symbicort 160/4.5] 2 puff IH BIDR 09/13/17 [History] Cholecalciferol (Vitamin D3) [Vitamin D3] 50,000 unit PO TH 09/13/17 [History] Sevelamer [Renvela] 800 mg PO DAILY 09/13/17 [History] Albuterol Neb [AccuNeb] 0.63 mg IH Q6H PRN 10/18/17 [History] amLODIPine [Norvasc] 5 mg PO DAILY 12/30/17 [History] Clopidogrel [Plavix] 75 mg PO DAILY 02/03/18 [History] Rosuvastatin Calcium [Crestor] 20 mg PO DAILY 02/27/18 [History] Amitriptyline [Elavil] 50 mg PO HS tablet 03/24/18 [Rx] Renal Vitamin [Renal Caps Softgel] 1 mg PO DAILY capsule 04/17/18 [Rx] Carvedilol 12.5 mg PO BID 04/28/18 [History] Darbepoetin [Aranesp] 60 mcg SQ FR 04/28/18 [History] Insulin DETEMIR [Levemir] 34 unit SQ HS 04/28/18 [History] Insulin LISPRO [HumaLOG] 2 - 10 units SQ TIDWM 04/28/18 [History] Lactobacillus Acidophilus/Fos [Acidophilus Probiotic Tablet] 1 tab PO DAILY 04/28/18 [History] Omeprazole [PriLOSEC] 20 mg PO DAILY 04/28/18 [History] Isosorbide MONOnitrate (24 HR) [Imdur] 30 mg PO DAILY #30 tab.er.24h 07/04/18 [Rx] Benzonatate [Tessalon] 200 mg PO TID PRN 10 Days #30 capsule 07/22/18 [Rx] Gabapentin [Neurontin] 100 mg PO TID 4 Days #12 capsule 07/22/18 [Rx] Ertapenem [INVanz] 500 mg IVPB DAILY #7 vial 07/26/18 [Rx] Metoclopramide [Reglan] 5 mg PO DAILY 08/13/18 [History] Sucralfate [Carafate] 1 gm PO QIDAC 08/13/18 [History] traZODone [TraZODone] 50 mg PO HS 08/13/18 [History] Acetaminophen [Tylenol] 650 mg PO Q6HR PRN tablet 08/18/18 [Rx] OxyCODONE/APAP 5/325 [Percocet 5/325 MG] 1 each PO Q8HR PRN 2 Days #6 tablet 08/18/18 [Rx] Allergy/AdvReac Type Severity Reaction Status Date / Time piperacillin [From Zosyn] Allergy Anaphylaxis Verified 07/05/18 10:03 tazobactam [From Zosyn] Allergy Anaphylaxis Verified 07/05/18 10:03 All Systems PM: A 10-system review of systems was performed and is negative for pertinent findings except as documented above in the HPI. Review of systems: All systems reviewed are negative except for what is mentioned above - Constitutional Vitals: Temp Pulse Resp BP Pulse Ox 97.5 F L 104 20 119/47 95 08/25/18 02:31 08/25/18 03:35 08/25/18 03:35 08/25/18 03:35 08/25/18 04:26 Exam: GEN: NAD HEENT: AT, NC, No cyanosis, oral mucosa is moist, No JVD Lymphatics: No lymphadenoapthy Eyes: Extrocular muscles intact, anicteric CVS: Irregular. S1, S2, No m/r/g RESP: Diminished with crackles throughout. ABD: Soft, NT, ND, +BS EXT: Pedal edema, No rashes, 2+ DP NEURO: Nonfocal, CN II-XII intact, No focal motor or sensory deficits Psych: Cooperative, Not anxious or depressed Internal Med - H&P Results - Labs CBC & Chem 7: 08/25/18 03:36 08/25/18 03:36 Labs: Short CBC 08/25/18 Range/Units 03:36 WBC 19.4 H D (4.3-11.1) K/mcL Hgb 9.0 L (11.5-15.4) g/dL Hct 31.1 L (35.3-44.9) % Plt Count 198 D (140-400) K/mcL Neutrophils # 17.9 H (1.6-8.9) K/mcL BMP 08/25/18 03:36 Sodium 135 L Potassium 5.0 Chloride 100 Carbon Dioxide 26 BUN 26 H Creatinine 3.71 H Glucose 141 H Calcium 9.1 - ABG Interpretation ABG results: 08/25/18 02:39 ABG pH 7.36 ABG pCO2 50 H ABG pO2 53 L ABG HCO3 29 H ABG Total CO2 30 H ABG O2 Saturation 85 L ABG Base Excess 2 - Impressions ITS Impressions Chest X-Ray 08/25/18 02:31 IMPRESSION: Persistent findings of pulmonary edema, slightly increased from prior exam. Worsening perihilar bibasilar consolidation, also likely related to pulmonary edema. D/ / Noé Oconnor MD / oNé Oconnor MD Interpreting Provider: Noé Oconnor MD - Assessment and plan (1) Acute and chronic respiratory failure Current Visit: Yes Status: Acute Assessment and plan: Multifactorial. Volume overload as well as possible healthcare associated pneumonia. We will treat each as below. Continue O2 support and nebs. Qualifiers: Respiratory failure complication: hypoxia Qualified Code(s): J96.21 - Acute and chronic respiratory failure with hypoxia (2) HCAP (healthcare-associated pneumonia) Current Visit: No Status: Acute Assessment and plan: We will place the patient on broad-spectrum antibiotics with vancomycin and ertapenem. Check blood cultures. Check urine strep and Legionella. Check sputum culture if able to give us a sample. Check respiratory panel. O2 support and nebs. (3) Cellulitis Current Visit: Yes Status: Acute Assessment and plan: Patient has an abrasion/cellulitis with erythema and purulence in the left upper extremity. Antibiotics as above should be covering for cellulitis as well. Qualifiers: Site of cellulitis: extremity Site of cellulitis of extremity: upper extremity Laterality: left Qualified Code(s): L03.114 - Cellulitis of left upper limb (4) CHF (congestive heart failure) Current Visit: Yes Status: Acute Assessment and plan: Patient has signs of worsening edema. This should improve with dialysis. Resume home meds Qualifiers: Heart failure type: diastolic Heart failure chronicity: chronic Qualified Code(s): I50.32 - Chronic diastolic (congestive) heart failure (5) CAD (coronary artery disease) Current Visit: No Status: Chronic Assessment and plan: Continue home medication Qualifiers: Coronary Disease-Associated Artery/Lesion type: [place] artery [place] vs. transplanted heart: [place] heart Associated angina: with unstable angina Qualified Code(s): I25.110 - Atherosclerotic heart disease of [place] coronary artery with unstable angina pectoris (6) Diabetes mellitus Current Visit: No Status: Chronic Assessment and plan: Continue insulin sliding scale. Continue home basal insulin. Continue Accu- Cheks. 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 estimator use Diabetes mellitus complication status: with hyperglycemia Qualified Code(s): E11.65 - Type 2 diabetes mellitus with hyperglycemia; Z79.4 - precision mechanical instrument maker (current) use of insulin; Z79.4 - group home (current) use of insulin; Z79.4 - group home (current) use of insulin; Z79.4 - group home (current) use of insulin (7) ESRD (end stage renal disease) on dialysis Current Visit: No Status: Chronic Assessment and plan: We will consult nephrology for dialysis purposes (8) Hypertension Current Visit: No Status: Chronic Assessment and plan: Resume home medications Qualifiers: Hypertension type: essential hypertension Qualified Code(s): I10 - Essential (primary) hypertension (9) DVT prophylaxis Current Visit: No Status: Acute - Time Spent With Patient Total time spent is greater than 50% in coordination of care (as documented) at patient's floor/unit and/or counseling patient:
[2018-08-25] MEDS ORDERED: Ondansetron 4 MG/2 ML VIAL IVP PRN (05:16)
[2018-08-25] MEDS ORDERED: Acetaminophen 325 MG TABLET PO PRN (05:17)
[2018-08-25] MEDS ORDERED: Naloxone 0.4 MG/ML INJ IVP PRN (05:17)
[2018-08-25] MEDS ORDERED: Ipratropium/Albuterol Neb 3 ML IH PRN (05:23)
[2018-08-25] MEDS ORDERED: *HR* OxyCODONE/APAP 5/325 TABLET PO PRN (07:41)
[2018-08-25] MEDS ORDERED: Albuterol Neb 0.63 MG/3 ML VIAL IH PRN (07:41)
[2018-08-25] MEDS ORDERED: Benzonatate 100 MG CAPSULE PO PRN (07:41)
[2018-08-25] MEDS ORDERED: 0.9 % Sodium Chloride 250 ML IVC PRN (09:13)
[2018-08-25] MEDS ORDERED: 0.9 % Sodium Chloride 1,000 ML PRIME SCH (09:15)
--- NOTE | 2018-08-25 10:05 | Nephrology Consult Note ---
Date of Encounter: 08/25/18 Time of Encounter: 09:50 Assessment and Plan (1) ESRD (end stage renal disease) on dialysis Current Visit: No Status: Chronic Noncompliant with diet and based upon her [facility] records that I reviewed she is not completing all of her HD which is likely why her volume status worsens withing 1-2 weeks after discharge from [facility] and contributes to her cycle of admission after readmission. She should have a family meeting and consider withdrawing from dialysis. (2) Anemia of chronic disease Current Visit: Yes Status: Chronic Will arrange for [facility] while here. History of Present Illness - Reason for Consult Consult date: 08/25/18 end stage renal disease Requesting physician: Ailyn Ramon - Chief Complaint Fluid overload - History of Present Illness 63 y/o obese WF with a pmh of ESRD on HD TTS who has frequent hospitalizations. Her primary rat farmer is Dr. Rivers and I reviewed her outside [facility] records and noted that last Wednesday and of last week, she did not complete her full treatments of HD (she tells me that she wanted off). Today she c/o fatigue, ShOB and was brought to the Hospital instead of her outpt HD unit. I happend to find her on my [employer] census while rounding today. She has had a few falls see said. Past Med Surg Social Fam HX - Past Medical History Medical history: atrial fibrillation, CHF, COPD, coronary artery disease, diabetes, dialysis, GI bleed, hyperlipidemia, hypertension, myocardial infarction, peripheral artery disease, renal disease Additional medical history: AV fistula for dialysis ++ Psychiatric history: anxiety, depression, schizophrenia, previous psychiatric hospitalization - Past Surgical History Surgical History: angioplasty/stent, appendectomy, cholecystectomy, coronary by pass (CABG), hysterectomy, knee replacement, other, IVC filter Additional surgical history: left arm fistulogram with covered stent placement left basilic vein 2016. kidney stones 1996. double Bypass 1998. stents x5 unsure date. right wrist 2017 - Social History Smoking Status: Current every day smoker Smokeless Tobacco Status: No Alcohol use: none Drug use: none - Family History Father Family Member Ethnicity: Non- Living Status: Hx Family Cardiac Disorders: Yes Hx Family Respiratory Disorders: Yes Hx Family Cancer: Yes (Polycythemia) Hx Family Endocrine Disorder: Yes (DM) Mother Family Member Ethnicity: Non- Living Status: Still Living Hx Family Cardiac Disorders: Yes Hx Family Respiratory Disorders: Yes (asthma, COPD) Brother Adopted: No Family Member Ethnicity: Non- Living Status: Still Living Hx Family Cardiac Disorders: No Hx Family Respiratory Disorders: No Hx Family Cancer: No Hx Family GI Disorders: No Hx Family Endocrine Disorder: No Hx Family Neuromuscular Disorders: No Hx Family Neurologic Disorders: No Hx Family HEENT Disorders: No Hx Family Autoimmune Disorders: No Sister Adopted: No Family Member Ethnicity: Non- Living Status: Still Living Hx Family Cardiac Disorders: Yes Hx Family Respiratory Disorders: No Hx Family Cancer: No Hx Family GI Disorders: No Hx Family Endocrine Disorder: Yes Hx Family Neuromuscular Disorders: No Hx Family Neurologic Disorders: No Hx Family HEENT Disorders: No Hx Family Autoimmune Disorders: No Medications and Allergies Colestipol HCl [Colestid] 1 gm PO BID 06/12/15 [History] Calcium Acetate [Phos-LO] 1,334 mg PO TIDWM 09/06/16 [History] ARIPiprazole [Abilify] 10 mg PO DAILY 09/13/17 [History] Aspirin Enteric Coated [Aspirin EC] 81 mg PO DAILY 09/13/17 [History] Budesonide/Formoterol 160/4.5 [Symbicort 160/4.5] 2 puff IH BIDR 09/13/17 [History] Cholecalciferol (Vitamin D3) [Vitamin D3] 50,000 unit PO TH 09/13/17 [History] Sevelamer [Renvela] 800 mg PO DAILY 09/13/17 [History] Albuterol Neb [AccuNeb] 0.63 mg IH Q6H PRN 10/18/17 [History] amLODIPine [Norvasc] 5 mg PO DAILY 12/30/17 [History] Clopidogrel [Plavix] 75 mg PO DAILY 02/03/18 [History] Rosuvastatin Calcium [Crestor] 20 mg PO DAILY 02/27/18 [History] Renal Vitamin [Renal Caps Softgel] 1 mg PO DAILY capsule 04/17/18 [Rx] Carvedilol 12.5 mg PO BID 04/28/18 [History] Darbepoetin [Aranesp] 60 mcg SQ FR 04/28/18 [History] Insulin DETEMIR [Levemir] 34 unit SQ HS 04/28/18 [History] Insulin LISPRO [HumaLOG] 2 - 10 units SQ TIDWM 04/28/18 [History] Lactobacillus Acidophilus/Fos [Acidophilus Probiotic Tablet] 1 tab PO DAILY 04/28/18 [History] Omeprazole [PriLOSEC] 20 mg PO DAILY 04/28/18 [History] Isosorbide MONOnitrate (24 HR) [Imdur] 30 mg PO DAILY #30 tab.er.24h 07/04/18 [Rx] Benzonatate [Tessalon] 200 mg PO TID PRN 10 Days #30 capsule 07/22/18 [Rx] Gabapentin [Neurontin] 100 mg PO TID 4 Days #12 capsule 07/22/18 [Rx] Metoclopramide [Reglan] 5 mg PO QPM 08/13/18 [History] Sucralfate [Carafate] 1 gm PO QID 08/13/18 [History] Amino Acids/Protein Hydrolys [Pro-Stat Awc Liquid Packet] 30 ml PO QPM 08/25/18 [History] Collagenase Oint [Santyl] 1 appl TP DAILY 08/25/18 [History] Gentamicin Sulfate [Gentak] 1 appl LEFT EYE DAILY 08/25/18 [History] OxyCODONE/APAP 5/325 [Percocet 5/325 MG] 1 tab PO Q6H PRN 08/25/18 [History] risperiDONE [Risperdal] 0.5 mg PO HS PRN 08/25/18 [History] Allergy/AdvReac Type Severity Reaction Status Date / Time piperacillin [From Zosyn] Allergy Anaphylaxis Verified 07/05/18 10:03 tazobactam [From Zosyn] Allergy Anaphylaxis Verified 07/05/18 10:03 Review of Systems All Systems: reviewed and no additional remarkable complaints except as stated Exam - Vital Signs Vital signs: Initial Vital Signs Temp Pulse Resp BP Pulse Ox 97.5 F L 101 22 113/97 96 08/25/18 02:31 08/25/18 02:31 08/25/18 02:31 08/25/18 02:31 08/25/18 02:31 Vital Signs - Last 8 Hours Temp Pulse Resp BP Pulse Ox 08/25/18 07:47 18 115/54 08/25/18 04:26 95 08/25/18 03:35 104 20 119/47 99 08/25/18 02:31 97.5 F L 101 22 113/97 96 Intake and Output 08/24/18 08/25/18 08/25/18 23:59 07:59 15:59 Other: Weight 133.951 kg Patient Weight 08/25/18 23:59 Weight 133.951 kg - General Appearance General appearance: appears started age, obese, moderate distress, fatigue, frail EENT: ATNC, PERRL, mucous membranes moist Neck: supple Respiratory: rales, course breath sounds, rhonchi Cardiology: edema (3-4+ pretibial pitting edema b/l), regular rate, regular rhythm, normal S1, normal S2 - Dialysis Access Dialysis Vascular Access: Arteriovenous Graft (LUE AVG with +Thrill/bruit) Gastrointestinal: normoactive bowel sounds, no tenderness, no guarding, obese Integumentary: rash, erythema, ecchymotic, skin tear, chronic venous stasis Neurologic: no focal deficit, no asterixis, confused Musculoskeletal: no deformities, no erythema, no cyanosis Psychiatric: mood/affect appropriate, cooperative Results - Lab Results 08/25/18 03:36 08/25/18 03:36 Most recent lab results ABG pH 7.36 pH Units (7.32-7.45) 08/25/18 02:39 ABG pCO2 50 mmHg (35-45) H 08/25/18 02:39 ABG pO2 53 mmHg (85-104) L 08/25/18 02:39 ABG HCO3 29 mEq/L (21-27) H 08/25/18 02:39 ABG O2 Saturation 85 % (95-98) L 08/25/18 02:39 Calcium 9.1 mg/dL (8.6-10.3) 08/25/18 03:36 Consult Discharge Plan - Plan Referrals: Palmira Quintana DO [Primary Care Provider] -
[2018-08-25] MEDS: Insulin LISPRO 300 UNITS/3 ML VIAL SQ SCH ×4 (10:45→21:59)
[2018-08-25] MEDS: Budesonide/Formoterol 160/4.5 1 PUFF INH IH SCH ×2 (12:11→20:18)
[2018-08-25] MEDS ORDERED: Naloxone 0.4 MG/ML INJ IVP STA (13:17)
--- NOTE | 2018-08-25 14:30 | Event Note ---
Date of Encounter: 08/25/18 Time of Encounter: 09:14 63 year old female with history of COPD on chronic 3 L nasal cannula oxygen, end-stage renal disease on dialysis, A. fib, coronary artery disease status post CABG and stents, hypertension, hyperlipidemia, CHF, diabetes mellitus, who presented from her intermediate facility with acute respiratory failure. Patient is very noncompliant to her diet and fluid restriction. She has had multiple admissions greater than 20 in 2018 alone. she was discharged 7 days ago after a stay for volume overload.s he was treated with ertapenem for ? aspiration PNA. This morning while in the ED she had basic labs showed leukocytosis of 19.4, BNP of 850. Chest x-ray showed worsening pulmonary edema versus infiltrates. ABG showed pH of 7.36, CO2 of 50, O2 of 53 and bicarbonate of 29. Is admitted for further management of her acute on chronic hypoxic hypercapnic respiratory failure currently patient has no complaints. is requesting her breakfast. nursing staff at bedside i went over plan of care with them Vital signs: Pulse of 76, respiratory rate of 18, blood pressure 115/54 satura ting 90% on nasal cannula General: Patient is alert, oriented, no acute distress, morbidly obese Head: atraumatic, normocephalic, Eye: normal appearance, PERRL, no scleral icterus, no conjunctival injection ENT: mucous membranes moist, normal external ear exam Neck: normal inspection, trachea midline, full ROM, no carotid bruits Chest: normal inspection, symmetric chest rise Respiratory: decreased breath sounds secondary to body habitus with no wheezing however has course crackles in the posterior lung tran. Cardiovascular: distant heart sounds secondary to body habitus Regular rate and rhythm. s1 and s2 No clicks, rubs, gallops, or murmors. Abdomen: Bowel sounds present normoactive x-4 quadrants. Abdomen is soft, nondistended. no Epigastric tenderness. No guarding or rebound. No organomegaly noted, obese musculoskeletal: 3 edema of bilateral lower extremity L>R. Skin: warm, dry, intact. Unstageable sacral ulcer 3x3 centimeter with tunnels, left forearm skin tear that is 3 cm Gavin's cyst 3 cm, another skin tear in the left forearm 6 cm x 2 cm, right forearm skin tear 2 cm x 3 cm left lower extremity wound that is 6 cm x 6 cm neck Incision in the lateral aspect of the left foot which is 9 cm x 0.2 cm depth by 0.25 cm, another wound on the dorsal aspect of the left foot 5 x 3 cm with pus second digit of the left foot with 1 x 1 cm ulcer the right lower extremity l ateral aspect below the knee with a 6 cm long by 0.5 cm wound multiple ecchymosis of the Upper extremities. Neuro: Alert and oriented x3. Not aphasic, no focal deficit Psych: Patient's affect is normal A/P acute on chronic Hypoxic and hypercapnic respiratory failure secondary to fluid overload doubt HAP ESRD on hemodialysis Multiple ulcers at different stages of healing in the bilateral lower extremity and upper extremities with surrounding cellulitis Unstageable ulcer of the sacrum Morbidly obese CAD status post stents on DAPT Insulin dependent Diabetes Hypertension Noncompliance to medical care Continue BiPAP Was started on vancomycin and ertapenem will continue ESR, CRP, blood cultures We will get a CT abdomen and pelvis to evaluate for sacral ulcer as it seems to have tunneling Consider surgical consult pending above results Wound care consulted as she has multiple wounds on bilateral upper and lower extremities Continue home medications if not contraindicated DVT prophylaxis with heparin subcutaneous Will call palliative as she has had multiple admissions greater than and 2017 and has been gradually declining CODE STATUS is DNR CCA arrest [employer]GER consult continue finger sticks and insulin regimen continue home inhalers prognosis is guarded
--- NOTE | 2018-08-25 15:19 | Palliative - Consult Note ---
Date of Encounter: 08/25/18 Time of Encounter: 15:30 - Assessment and Plan (1) Altered mental status Current Visit: No Status: Resolved Assessment and plan: Appears resolved now - most likely close to baseline. Received Narcan earlier this afternoon. Qualifiers: Altered mental status type: unspecified Qualified Code(s): R41.82 - Altered mental status, unspecified (2) Dyspnea Current Visit: No Status: Acute Assessment and plan: Resolved since admission, currently states breathing back to "my normal". Monitor. Qualifiers: Dyspnea type: shortness of breath Qualified Code(s): R06.02 - Shortness of breath; R06.00 - Dyspnea, unspecified; R06.01 - Orthopnea (3) Goals of care, counseling/discussion Current Visit: No Status: Acute Assessment and plan: Patient currently has healthcare POA in place, is nataliya Zuniga "Leo" Osvaldo [phone]. I reviewed the previous palliative consultation on 08/16/18 - at that time, pt signed a DNRCC state form. She did not want hospice as she did not desire to stop her dialysis. She again returns to the hospital for hypoxia. Rapid response was called earlier as pt was obtunded and difficult to awaken, however, she is now alert and oriented and talking fluently. I showed her the DNR form and she remembers completing this. I discussed that this means no heroic measures, and also no intubation/ventilator if her lungs fail. She verbalized that she wants to continue the DNRCC and does not desire those things. Code status was changed accordingly, and I have printed her DNR and Poa forms and placed in her file on the unit. Patient states she does not know if son is aware she is here. I was unable to reach son by phone, but left him a message with my contact information. What patient has previously stated is that as long as dialysis is offered, she will continue it. She would not be able to be enrolled in hospice care until she not longer wanted dialysis, or was not able to tolerate it. She understands that she will pass away in a short amount of time once dialysis is stopped. I spoke with [facility] staff who states that she has been agreeing to go to dialysis, however, she makes them cut her sessions short. [facility] staff states that she is also not compliant with diet, and will call the kitchen and special order food. D/W Dr. Vaughan as well. Will f/u in am, unless patient's goals change, palliative may not have much to offer. (4) ESRD on hemodialysis Current Visit: No Status: Chronic Assessment and plan: Currently in dialysis, tolerating well. Nephrology following (5) Physical debility Current Visit: No Status: Chronic Palliative-CN HPI - Data of Consult Patient: known to practice within the last 3 years Consult date: 08/25/18 Requesting Physician: Hai Kang Primary Care Provider: Palmira Quintana, DO - Consult Narrative Palliative Care/Comfort Measures: Palliative care History of present illness: Ms. Riley is a 63 year old female who was sent to hospital from [facility] via EMS r/t hypoxia. Oxygen saturation were initially in the 80's. She was placed on bipap and oxygenation improved. She has had multiple hospitalizations (22) over the past year and has a history of noncompliance with dialysis and diet. She was just discharged on 08/18. She was treated for an aspiration pneumona at that time as well, and was completing course of ertapenem at the [facility]. She was back in ED a few days ago after a fall. Testing in ER this admission demonstrated leukocytosis with WBC 19.4, BNP 850. PCO2 50/PO2 53. Afebrile. CXR with worsening infiltrates and pulmonary edema. She has other pertinent medical history for ESRD on dialysis, COPD, Atrial fib, CAD s/p CABG, stents, CHF, DM, HTN. I saw patient in dialysis. Earlier she was obtunded and received Narcan with good response. She is alert and oriented to name and place, and can answer most questions appropriately. States "I just feel bad". Patient denies discomfort at this time, stating she is "hungry but they won't let me eat". Explained to her awaiting speech evaluation. Patient states that she sees son occasionally, but not very often. CC: Hai Kang - Time Spent with Patient Time: Total time spent is greater than 50% in coordination of care (as documented) at patient's floor/unit and/or counseling patient: Time with patient: 45 minutes Past Med Surg Social Fam HX - Past Medical History Medical history: atrial fibrillation, CHF, COPD, coronary artery disease, diabetes, dialysis, GI bleed, hyperlipidemia, hypertension, myocardial infarcti on, peripheral artery disease, renal disease Additional medical history: AV fistula for dialysis ++ Psychiatric history: anxiety, depression, schizophrenia, previous psychiatric hospitalization - Past Surgical History Surgical History: angioplasty/stent, appendectomy, cholecystectomy, coronary bypass (CABG), hysterectomy, knee replacement, other, IVC filter Additional surgical history: left arm fistulogram with covered stent placement left basilic vein 2016. kidney stones 1996. double Bypass 1998. stents x5 unsure date. right wrist 2017 - Social History Smoking Status: Current every day smoker Smokeless Tobacco Status: No Alcohol use: none Drug use: none - Family History Father Family Member Ethnicity: Non- Living Status: Hx Family Cardiac Disorders: Yes Hx Family Respiratory Disorders: Yes Hx Family Cancer: Yes (Polycythemia) Hx Family Endocrine Disorder: Yes (DM) Mother Family Member Ethnicity: Non- Living Status: Still Living Hx Family Cardiac Disorders: Yes Hx Family Respiratory Disorders: Yes (asthma, COPD) Brother Adopted: No Family Member Ethnicity: Non- Living Status: Still Living Hx Family Cardiac Disorders: No Hx Family Respiratory Disorders: No Hx Family Cancer: No Hx Family GI Disorders: No Hx Family Endocrine Disorder: No Hx Family Neuromuscular Disorders: No Hx Family Neurologic Disorders: No Hx Family HEENT Disorders: No Hx Family Autoimmune Disorders: No Sister Adopted: No Family Member Ethnicity: Non- Living Status: Still Living Hx Family Cardiac Disorders: Yes Hx Family Respiratory Disorders: No Hx Family Cancer: No Hx Family GI Disorders: No Hx Family Endocrine Disorder: Yes Hx Family Neuromuscular Disorders: No Hx Family Neurologic Disorders: No Hx Family HEENT Disorders: No Hx Family Autoimmune Disorders: No Medications and Allergies Colestipol HCl [Colestid] 1 gm PO BID 06/12/15 [History] Calcium Acetate [Phos-LO] 1,334 mg PO TIDWM 09/06/16 [History] ARIPiprazole [Abilify] 10 mg PO DAILY 09/13/17 [History] Aspirin Enteric Coated [Aspirin EC] 81 mg PO DAILY 09/13/17 [History] Budesonide/Formoterol 160/4.5 [Symbicort 160/4.5] 2 puff IH BIDR 09/13/17 [History] Cholecalciferol (Vitamin D3) [Vitamin D3] 50,000 unit PO TH 09/13/17 [History] Sevelamer [Renvela] 800 mg PO DAILY 09/13/17 [History] Albuterol Neb [AccuNeb] 0.63 mg IH Q6H PRN 10/18/17 [History] amLODIPine [Norvasc] 5 mg PO DAILY 12/30/17 [History] Clopidogrel [Plavix] 75 mg PO DAILY 02/03/18 [History] Rosuvastatin Calcium [Crestor] 20 mg PO DAILY 02/27/18 [History] Renal Vitamin [Renal Caps Softgel] 1 mg PO DAILY capsule 04/17/18 [Rx] Carvedilol 12.5 mg PO BID 04/28/18 [History] Darbepoetin [Aranesp] 60 mcg SQ FR 04/28/18 [History] Insulin DETEMIR [Levemir] 34 unit SQ HS 04/28/18 [History] Insulin LISPRO [HumaLOG] 2 - 10 units SQ TIDWM 04/28/18 [History] Lactobacillus Acidophilus/Fos [Acidophilus Probiotic Tablet] 1 tab PO DAILY 04/28/18 [History] Omeprazole [PriLOSEC] 20 mg PO DAILY 04/28/18 [History] Isosorbide MONOnitrate (24 HR) [Imdur] 30 mg PO DAILY #30 tab.er.24h 07/04/18 [Rx] Benzonatate [Tessalon] 200 mg PO TID PRN 10 Days #30 capsule 07/22/18 [Rx] Gabapentin [Neurontin] 100 mg PO TID 4 Days #12 capsule 07/22/18 [Rx] Metoclopramide [Reglan] 5 mg PO QPM 08/13/18 [History] Sucralfate [Carafate] 1 gm PO QID 08/13/18 [History] Amino Acids/Protein Hydrolys [Pro-Stat Awc Liquid Packet] 30 ml PO QPM 08/25/18 [History] Collagenase Oint [Santyl] 1 appl TP DAILY 08/25/18 [History] Gentamicin Sulfate [Gentak] 1 appl LEFT EYE DAILY 08/25/18 [History] OxyCODONE/APAP 5/325 [Percocet 5/325 MG] 1 tab PO Q6H PRN 08/25/18 [History] risperiDONE [Risperdal] 0.5 mg PO HS PRN 08/25/18 [History] Allergy/AdvReac Type Severity Reaction Status Date / Time piperacillin [From Zosyn] Allergy Anaphylaxis Verified 07/05/18 10:03 tazobactam [From Zosyn] Allergy Anaphylaxis Verified 07/05/18 10:03 All systems: reviewed and no additional remarkable complaints except as stated (shortness of breath, weakness, moist cough, multiple leg ulcers, sacral ulcer,) Palliative Care-Exam - Constitutional Vitals: Temp Pulse Resp BP Pulse Ox 98.0 F 76 18 104/66 88 08/25/18 11:24 08/25/18 11:24 08/25/18 07:47 08/25/18 11:24 08/25/18 11:24 General appearance: Present: no acute distress - Head Head Exam: Present: normal inspection, normocephalic - Eye Eye exam: Present: normal appearance, PERRL - Respiratory Additional comments: Breath sounds decreased throughout, Crackles to bilateral bases, occasional rhonchi noted. Moist cough - GI/Abdominal Exam GI/Abdominal exam: Present: normal bowel sounds, soft - Extremities Exam Additional comments: 2-3+ edema to bilateral lower extremities - Neurological Exam Neurological exam: Present: alert, strengths equal and symetr throughout Additional comments: Oriented to person and place, does need reoriented to time/date. She answers most questions appropriately. - Psychiatric Psychiatric exam: Present: normal affect, normal mood - Skin Skin exam: Present: dry, pallor, warm Additional comments: Multiple skin tears to upper extremities. Ulcers to lower extremities and left 2nd toe. Appear to be dried and currently open to air Internal Medicine - CN: Reslt - Labs CBC & Chem 7: 08/25/18 03:36 08/25/18 03:36 Labs: Short CBC 08/25/18 Range/Units 03:36 WBC 19.4 H D (4.3-11.1) K/mcL Hgb 9.0 L (11.5-15.4) g/dL Hct 31.1 L (35.3-44.9) % Plt Count 198 D (140-400) K/mcL Neutrophils # 17.9 H (1.6-8.9) K/mcL BMP 08/25/18 03:36 Sodium 135 L Potassium 5.0 Chloride 100 Carbon Dioxide 26 BUN 26 H Creatinine 3.71 H Glucose 141 H Calcium 9.1 - ABG Interpretation ABG results: ABG ABG pH 7.36 pH Units (7.32-7.45) 08/25/18 02:39 ABG pCO2 50 mmHg (35-45) H 08/25/18 02:39 ABG pO2 53 mmHg (85-104) L 08/25/18 02:39 ABG O2 Saturation 85 % (95-98) L 08/25/18 02:39 - Impressions Impressions Chest X-Ray 08/25/18 02:31 IMPRESSION: Persistent findings of pulmonary edema, slightly increased from prior exam. Worsening perihilar bibasilar consolidation, also likely related to pulmonary edema. D/ / Noé Oconnor MD / Noé Oconnor MD Interpreting Provider: Noé Oconnor MD Consult Discharge Plan - Plan Referrals: Palmira Quintana DO [Primary Care Provider] - Palliative Quality Palliative Quality: Screen for Code Status: Yes, Screen for Goals of Care: Yes, Screen for Pain: Yes, If Pain Regimen Started, Initiate Bowel Regimen: NA, Screen for Nausea/Vomitting: Yes Code Status: 08/25/18 14:59 DNR [Resuscitation Status: Active] [RES] Routine Comment: Resuscitation Status: DNR-Comfort Care Palliative Scale - Palliative Performance Scale How ambulatory is this patient?: Totally bed bound What is patient's level of activity and evidence of disease?: Unable to do any work, Extensive disease How much self-care assistance does patient require?: Total care How much oral intake does the patient have?: Normal or reduced What is this patient's level of consciousness?: Full or confusion Palliative Performance Score: 30 %
[2018-08-25] MEDS: Calcium Acetate 667 MG CAPSULE PO SCH ×3 (16:23→17:16)
[2018-08-25] MEDS: Aspirin Enteric Coated 81 MG Tablet PO SCH (16:23)
[2018-08-25] MEDS: ARIPiprazole 10 MG TABLET PO SCH (16:23)
[2018-08-25] MEDS: Sucralfate 1 GM TABLET PO SCH ×5 (16:23→22:29)
[2018-08-25] MEDS: Isosorbide MONOnitrate (24 HR) 30 MG TAB.ER.24H PO SCH (16:24)
[2018-08-25] MEDS: Gabapentin 100 MG CAPSULE PO SCH ×3 (16:24→21:57)
[2018-08-25] MEDS: Lactobacillus 1 EACH CAP.SPRINK PO SCH (16:24)
[2018-08-25] MEDS: (Colestipol Hcl [Colestid] 1 GM) PO SCH ×2 (16:25→22:29)
[2018-08-25] MEDS: amLODIPine 5 MG TABLET PO SCH (16:25)
[2018-08-25] MEDS: Renal Vitamin 1 CAP CAPSULE PO SCH (16:27)
[2018-08-25] MEDS: Collagenase Oint 1 APPL GRAM TP SCH (16:27)
[2018-08-25] MEDS: Gentamicin OPTH Soln 5 ML BOTTLE LEFT EYE SCH ×3 (16:28→21:58)
[2018-08-25] MEDS: Metoclopramide 10 MG/10 ML UD.LIQ PO SCH (16:29)
[2018-08-25] MEDS: *HR* Heparin 5,000 UNIT/ML VIAL SQ SCH ×3 (16:30→21:57)
[2018-08-25] MEDS ORDERED: Insulin DETEMIR 100 UNIT/ML X5UNITS SQ SCH (21:00)
[2018-08-25] MEDS: Insulin DETEMIR 100 UNIT/ML X5UNITS SQ SCH (23:37)
[2018-08-26 05:10] LABS: Basophils % 0.3 %; Eosinophils # 0.1 K/mcL (0.0-0.6); Eosinophils % 0.7 %; Hematocrit 27.2 % (35.3-44.9); Hemoglobin 7.9 g/dL (11.5-15.4); Immature Granulocytes % 0.3 % (0-4); Lymphocytes # 0.8 K/mcL (0.6-4.6); Lymphocytes % 6.6 %; Mean Corpuscular Hemoglobin 22.4 pg (28.0-33.3); Mean Corpuscular Volume 77.1 fL (83.0-100.0); Mean Platelet Volume 11.6 fL (9.4-12.4); Monocytes # 0.7 K/mcL (0.0-1.3); Monocytes % 5.3 %; Neutrophils # 10.6 K/mcL (1.6-8.9); Platelet Count 168 K/mcL (140-400); Red Blood Count 3.53 M/mcL (3.82-4.97); Red Cell Distribution Width 19.6 % (11.5-14.5); Segmented Neutrophils % 86.8 %
[2018-08-26 05:28] LABS: Calcium 8.9 mg/dL (8.6-10.3); Potassium 4.1 mEq/L (3.5-5.1)
[2018-08-26 05:57] LABS: Adenovirus Not Detected (Not Detect); Bordetella Pertussis Not Detected (Not Detect); Chlamydophila pneumoniae Not Detected (Not Detect); Coronavirus 229E Not Detected (Not Detect); Coronavirus HKU1 Not Detected (Not Detect); Coronavirus NL63 Not Detected (Not Detect); Coronavirus OC43 Not Detected (Not Detect); Human Metapneumovirus Not Detected (Not Detect); Human Rhinovirus/Enterovirus Not Detected (Not Detect); Influenza A Subtype 2009 H1 Not Detected (Not Detect); Influenza A Untypeable Not Detected (Not Detect); Influenza B Not Detected (Not Detect); Mycoplasma pneumoniae Not Detected (Not Detect); Parainfluenza Virus 1 Not Detected (Not Detect); Parainfluenza Virus 2 Not Detected (Not Detect); Parainfluenza Virus 3 Not Detected (Not Detect); Parainfluenza Virus 4 Not Detected (Not Detect); Respiratory Syncytial Virus Not Detected (Not Detect)
[2018-08-26] MEDS: *HR* Heparin 5,000 UNIT/ML VIAL SQ SCH ×3 (06:44→22:37)
[2018-08-26] MEDS ORDERED: 0.9 % Sodium Chloride 1,000 ML ONE (07:50)
--- NOTE | 2018-08-26 08:14 | Nephrology Progress Note ---
Date of Encounter: 08/26/18 Time of Encounter: 10:00 - Assessment and Plan (1) ESRD (end stage renal disease) on dialysis Status: Chronic She should have a family meeting and consider withdrawing from dialysis; however in the meantime, I've place HD orders to help remove volume/edema for today (Wednesday). Noncompliant with diet and based upon her [facility] records that I reviewed she is not completing all of her HD which is likely why her volume status worsens withing 1-2 weeks after discharge from [facility] and contributes to her cycle of admission after readmission. (2) Anemia of chronic disease Status: Chronic Will arrange for [facility] while here. Goal Hgb is 10-11. (3) Failure to thrive Status: Acute acute on chronic with recurrent admissions every few days. Appreciate Palliative Care. The pt is no longer a dialysis candidate and should have dialysis stopped. She already DNR [facility]. Qualifiers: Failure to thrive age range: in adult Qualified Code(s): R62.7 - Adult failure to thrive Subjective Principal diagnosis: ESRD, Anasarca Interval history: Pt was s/e while on HD. She did not affirm N/V or cramping or other major complaints. Objective - Vital Signs Vital signs: Vital Signs Temp Pulse Resp BP Pulse Ox 08/26/18 04:00 98.1 F 64 16 143/80 97 08/25/18 23:50 98.9 F 76 16 106/58 96 08/25/18 22:33 97 08/25/18 20:20 20 91 08/25/18 20:00 98.1 F 81 16 112/48 92 08/25/18 17:03 98.9 F 85 117/53 08/25/18 16:42 97.6 F 18 116/69 08/25/18 16:20 104/54 08/25/18 16:05 106/57 08/25/18 15:50 91/55 08/25/18 15:35 101/52 08/25/18 15:20 122/69 08/25/18 15:05 119/47 08/25/18 14:50 96/46 08/25/18 14:35 92/50 08/25/18 14:20 99/54 08/25/18 14:05 124/72 08/25/18 13:50 121/77 08/25/18 13:35 92/58 08/25/18 13:20 109/59 08/25/18 13:05 136/70 08/25/18 12:50 87/51 08/25/18 12:35 91/52 08/25/18 12:20 91/52 08/25/18 12:05 95/59 08/25/18 11:50 97.2 F L 18 91/61 08/25/18 11:24 98.0 F 76 104/66 88 Intake and Output 08/25/18 08/26/18 08/26/18 23:59 07:59 15:59 Intake Total 350 / 350 240 / 240 Output Total 4230 / 4230 Balance -3880 / -3880 240 / 240 Intake: IV Fluids 350 / 350 INVanz 500 MG In 0.9 % Sodium 100 / 100 Chloride 100 ML @ 100 mls/hr IVPB HS NATALIE Rx#:[id number] Vancocin 1,000 MG In 0.9 % 250 / 250 Sodium Chloride 250 ML @ 167 mls/hr IVPB ONCE ONE Rx#: [id number] Oral 0 / 0 240 / 240 Output: Urine 0 / 0 Total Dialysis (HD) Output 4230 / 4230 Other: Weight 119.7 kg Blood Glucose* 170 Hemodialysis Net Fluid Removed 3630 (mL) Patient Weight 08/26/18 23:59 Weight 119.7 kg - General Appearance Exam: General appearance: appears started age, obese, moderate distress, fatigue, frail EENT: ATNC, PERRL, mucous membranes moist Neck: supple Respiratory: rales, course breath sounds, rhonchi Cardiology: edema (3-4+ pretibial pitting edema b/l), regular rate, regular rhythm, normal S1, normal S2 - Dialysis Access Dialysis Vascular Access: Arteriovenous Graft (LUE AVG with +Thrill/bruit) Gastrointestinal: normoactive bowel sounds, no tenderness, no guarding, obese Integumentary: rash, erythema, ecchymotic, skin tear, chronic venous stasis Neurologic: no focal deficit, no asterixis, confused Musculoskeletal: no deformities, no erythema, no cyanosis Psychiatric: mood/affect appropriate, cooperative - Lab 08/28/18 04:39 08/28/18 04:39 Most recent lab results ABG pH 7.36 pH Units (7.32-7.45) 08/25/18 02:39 ABG pCO2 50 mmHg (35-45) H 08/25/18 02:39 ABG pO2 53 mmHg (85-104) L 08/25/18 02:39 ABG HCO3 29 mEq/L (21-27) H 08/25/18 02:39 ABG O2 Saturation 85 % (95-98) L 08/25/18 02:39 Calcium 8.9 mg/dL (8.6-10.3) 08/26/18 04:20 Magnesium 2.0 mg/dL (1.6-2.6) 08/26/18 04:20 Consult Discharge Plan - Plan Referrals: Palmira Quintana DO [Primary Care Provider] -
[2018-08-26] MEDS: Insulin LISPRO 300 UNITS/3 ML VIAL SQ SCH ×4 (09:07→22:22)
[2018-08-26] MEDS: Budesonide/Formoterol 160/4.5 1 PUFF INH IH SCH ×2 (11:19→22:08)
[2018-08-26] MEDS: Gentamicin OPTH Soln 5 ML BOTTLE LEFT EYE SCH ×3 (12:12→22:22)
[2018-08-26] MEDS: Sucralfate 1 GM TABLET PO SCH ×4 (12:12→22:20)
[2018-08-26] MEDS: Calcium Acetate 667 MG CAPSULE PO SCH ×3 (12:12→17:54)
[2018-08-26] MEDS: (Colestipol Hcl [Colestid] 1 GM) PO SCH ×2 (12:13→23:02)
[2018-08-26] MEDS: Gabapentin 100 MG CAPSULE PO SCH ×3 (12:13→22:20)
[2018-08-26] MEDS ORDERED: Vancomycin 500 MG in 0.9 % Sodium Chloride Mini Bag 100 ML IVPB ONE (12:43)
[2018-08-26] MEDS: Aspirin Enteric Coated 81 MG Tablet PO SCH (12:47)
[2018-08-26] MEDS: ARIPiprazole 10 MG TABLET PO SCH (12:47)
[2018-08-26] MEDS: Renal Vitamin 1 CAP CAPSULE PO SCH (12:47)
[2018-08-26] MEDS: Lactobacillus 1 EACH CAP.SPRINK PO SCH (12:47)
[2018-08-26] MEDS: Isosorbide MONOnitrate (24 HR) 30 MG TAB.ER.24H PO SCH (12:48)
[2018-08-26] MEDS: amLODIPine 5 MG TABLET PO SCH (12:48)
[2018-08-26] MEDS: Collagenase Oint 1 APPL GRAM TP SCH (12:51)
--- NOTE | 2018-08-26 14:01 | Palliative Progress Note ---
Date of Encounter: 08/26/18 Time of Encounter: 13:30 - Assessment and plan (1) Altered mental status Current Visit: No Status: Acute Assessment and plan: Patient appears to be at baseline mentation. Qualifiers: Altered mental status type: unspecified Qualified Code(s): R41.82 - Altered mental status, unspecified (2) Dyspnea Current Visit: No Status: Acute Assessment and plan: Patient noted to have worsening dyspnea during movement. Continue oxygen therapy. Qualifiers: Dyspnea type: shortness of breath Qualified Code(s): R06.02 - Shortness of breath; R06.00 - Dyspnea, unspecified; R06.01 - Orthopnea (3) Goals of care, counseling/discussion Current Visit: No Status: Acute Assessment and plan: Met with patient regarding goals of care. Expressed concern over continued noncompliance in HD. Shared nephrology's rec ommendation to stop dialysis if not going to follow treatment plan; verbalized understanding. Patient reported she does not want to . Explained will still pass away, slightly slower, only taking minimal dialysis. Inquired quality over quantity of living. Patient expressed quality. Explained benefit of hospice including more pain control and not spending all her time in the hospital/dialysis center; verbalized agreement. Desires to return to [place] with Hospice services. Inquired when would desire to return to [place], reports as soon as we can get arranged. Attempted to contact jake tinoco's son regarding Hospice referral/discharge plan to [place]; no answer as of this time. Will continue to attempt to contact son and explain patient's change in goals of care. Patient requested Local Area Network Administrator to come visit her with updated news of stopping dialysis; notified Chaplian Edmundo. Notified Primary RN of patient's desire to enroll with hospice care and discharge back to [place] being placed on hold until can reach patient's son (MPOA). Spoke with SW and case management. Patient's family has a Pre-set family meeting scheduled with Rosangela in Palliative care, regarding dialysis and discharge planning. As unable to get in contact with son today, Palliative care to follow up tomorrow to discuss matter. Per Case management, Primary team intended to keep patient through the weekend. (4) Pain Current Visit: No Status: Acute Assessment and plan: Patient reports generalized pain, severe, 10/10. Ordered Tramadol for pain control. (5) ESRD (end stage renal disease) on dialysis Current Visit: No Status: Chronic Assessment and plan: Patient had dialysis today, non compliant. Stopped treatment early. Nephrology consulted, recommendation for cessation of dialysis for noncompliance. (6) Non-compliance with renal dialysis Current Visit: No Status: Chronic - Time Spent With Patient Total time spent is greater than 50% in coordination of care (as documented) at patient's floor/unit and/or counseling patient: 25 - 35 minutes - Subjective Interval history: Patient lying in bed with legs off of side of bed upon arrival for assessment. Patient alert and oriented times 2, disoriented to year. No family present at bedside. Patient reports severe, excrutiating pain upon arrival for assessment; patient reports the constant pain is the reason patient has been noncompliant with dialysis while inpatient. Patient denies anxiety. Noted dyspnea with m ovement. Patient denies nausea and vomiting. Patient completed partial dialysis today, but stopped early reporting severe pain. Patient had received Narcan yesterday during dialysis. - Constitutional Vitals: Abnormal lab results WBC 12.2 K/mcL (4.3-11.1) H 08/26/18 04:20 RBC 3.53 M/mcL (3.82-4.97) L 08/26/18 04:20 Hgb 7.9 g/dL (11.5-15.4) L 08/26/18 04:20 Hct 27.2 % (35.3-44.9) L 08/26/18 04:20 MCV 77.1 fL (83.0-100.0) L 08/26/18 04:20 MCH 22.4 pg (28.0-33.3) L 08/26/18 04:20 MCHC 29.0 g/dL (31.6-35.5) L 08/26/18 04:20 RDW 19.6 % (11.5-14.5) H 08/26/18 04:20 Neutrophils # 10.6 K/mcL (1.6-8.9) H 08/26/18 04:20 Hypochromasia Present (Not Present) A 08/25/18 03:36 Anisocytosis 1+ (Not Present) A 08/25/18 03:36 ESR 64 mm/hr (0-15) H 08/25/18 15:04 ABG pCO2 50 mmHg (35-45) H 08/25/18 02:39 ABG pO2 53 mmHg (85-104) L 08/25/18 02:39 ABG HCO3 29 mEq/L (21-27) H 08/25/18 02:39 ABG Total CO2 30 mEq/L (20-26) H 08/25/18 02:39 ABG O2 Saturation 85 % (95-98) L 08/25/18 02:39 Sodium 135 mEq/L (136-145) L 08/26/18 04:20 Creatinine 2.83 mg/dL (0.60-1.20) H 08/26/18 04:20 Est GFR ( Amer) 20 (> 60) L 08/26/18 04:20 Est GFR (Non-Af Amer) 17 (> 60) L 08/26/18 04:20 Glucose 139 mg/dL (70-105) H 08/26/18 04:20 POC Glucose 170 mg/dL (70-99) H 08/25/18 20:12 Creatine Kinase 14 Units/L (30-223) L 08/25/18 16:48 C-Reactive Protein 77 mg/L (Less than 10) H 08/25/18 15:04 B-Natriuretic Peptide 852 pg/mL (Less than 100) H 08/25/18 03:36 General appearance: Present: mild distress, no acute distress. Absent: cooperative - Head Head exam: Present: atraumatic, normal inspection - Eye Eye exam: Present: EOMI, normal appearance Pupils: Present: normal accommodation, PERRL - ENT ENT exam: Present: mucous membranes moist, normal external ear exam - Neck Neck exam: Present: full ROM, normal inspection - Respiratory Respiratory exam: Present: accessory muscle use, rhonchi, wheezes. Absent: CTAB - Cardiovascular Cardiovascular exam: Present: +S1, +S2 - GI/Abdominal GI/Abdominal exam: Present: diminished bowel sounds, distended. Absent: tenderness - Rectal Rectal exam: Present: deferred - Extremities Exam Extremities exam: Present: calf tenderness, pedal edema, tenderness. Absent: normal inspection - Back Exam Back exam: Present: full ROM, normal inspection - Neurological Exam Neurological exam: Present: alert, strengths equal and symetr throughout. Absent: altered, normal gait, facial droop - Psychiatric Psychiatric exam: Present: anxious - Skin Skin exam: Present: dry, warm. Absent: intact Palliative Quality Palliative Quality: Screen for Code Status: Yes, Screen for Goals of Care: Yes, Screen for Pain: Yes, If Pain Regimen Started, Initiate Bowel Regimen: NA, Screen for Nausea/Vomitting: Yes Code Status: 08/25/18 14:59 DNR [Resuscitation Status: Active] [RES] Routine Comment: Resuscitation Status: DNR-Comfort Care - Labs CBC & Chem 7: 08/26/18 04:20 08/26/18 04:20 Labs: Laboratory Results - last 24 hr 08/25/18 08/25/18 08/25/18 10:57 15:04 15:04 WBC RBC Hgb Hct MCV MCH MCHC RDW Plt Count MPV Immature Gran % Seg Neutrophils % Lymphocytes % Monocytes % Eosinophils % Basophils % Neutrophils # Lymphocytes # Monocytes # Eosinophils # Basophils # ESR 64 H Sodium Potassium Chloride Carbon Dioxide BUN Creatinine Est GFR ( Amer) Est GFR (Non-Af Amer) BUN/Creatinine Ratio Glucose POC Glucose 143 H Calculated Osmolality Lactic Acid Calcium Magnesium Creatine Kinase C-Reactive Protein 77 H Random Vancomycin Chlamy pneumoniae PCR Adenovirus (PCR) B. pertussis DNA (PCR) B.parapertussis DNA PCR Coronavirus OC43 (PCR) Coronavirus HKU1 (PCR) Coronavirus 229E (PCR) Coronavirus NL63 (PCR) Human Metapneumovir PCR Influenza A (H1) PCR Influ A (H1N1/09) PCR Influenza A (H3) PCR Influenza A Untype (PCR) Influenza Type B (PCR) M.pneumoniae DNA (PCR) Parainfluenza 1 (PCR) Parainfluenza 2 (PCR) Parainfluenza 3 (PCR) Parainfluenza 4 (PCR) RSV (PCR) Entero/Rhino (PCR) 08/25/18 08/25/18 08/25/18 16:48 16:48 16:53 WBC RBC Hgb Hct MCV MCH MCHC RDW Plt Count MPV Immature Gran % Seg Neutrophils % Lymphocytes % Monocytes % Eosinophils % Basophils % Neutrophils # Lymphocytes # Monocytes # Eosinophils # Basophils # ESR Sodium Potassium Chloride Carbon Dioxide BUN Creatinine Est GFR ( Amer) Est GFR (Non-Af Amer) BUN/Creatinine Ratio Glucose POC Glucose 105 H Calculated Osmolality Lactic Acid 0.7 Calcium Magnesium Creatine Kinase 14 L C-Reactive Protein Random Vancomycin Chlamy pneumoniae PCR Adenovirus (PCR) B. pertussis DNA (PCR) B.parapertussis DNA PCR Coronavirus OC43 (PCR) Coronavirus HKU1 (PCR) Coronavirus 229E (PCR) Coronavirus NL63 (PCR) Human Metapneumovir PCR Influenza A (H1) PCR Influ A (H1N1/09) PCR Influenza A (H3) PCR Influenza A Untype (PCR) Influenza Type B (PCR) M.pneumoniae DNA (PCR) Parainfluenza 1 (PCR) Parainfluenza 2 (PCR) Parainfluenza 3 (PCR) Parainfluenza 4 (PCR) RSV (PCR) Entero/Rhino (PCR) 08/25/18 08/25/18 08/26/18 17:03 20:12 04:20 WBC RBC Hgb Hct MCV MCH MCHC RDW Plt Count MPV Immature Gran % Seg Neutrophils % Lymphocytes % Monocytes % Eosinophils % Basophils % Neutrophils # Lymphocytes # Monocytes # Eosinophils # Basophils # ESR Sodium Potassium Chloride Carbon Dioxide BUN Creatinine Est GFR ( Amer) Est GFR (Non-Af Amer) BUN/Creatinine Ratio Glucose POC Glucose 94 170 H Calculated Osmolality Lactic Acid Calcium Magnesium Creatine Kinase C-Reactive Protein Random Vancomycin Chlamy pneumoniae PCR Not Detected Adenovirus (PCR) Not Detected B. pertussis DNA (PCR) Not Detected B.parapertussis DNA PCR Not Detected Coronavirus OC43 (PCR) Not Detected Coronavirus HKU1 (PCR) Not Detected Coronavirus 229E (PCR) Not Detected Coronavirus NL63 (PCR) Not Detected Human Metapneumovir PCR Not Detected Influenza A (H1) PCR Not Detected Influ A (H1N1/09) PCR Not Detected Influenza A (H3) PCR Not Detected Influenza A Untype (PCR) Not Detected Influenza Type B (PCR) Not Detected M.pneumoniae DNA (PCR) Not Detected Parainfluenza 1 (PCR) Not Detected Parainfluenza 2 (PCR) Not Detected Parainfluenza 3 (PCR) Not Detected Parainfluenza 4 (PCR) Not Detected RSV (PCR) Not Detected Entero/Rhino (PCR) Not Detected 08/26/18 08/26/18 08/26/18 04:20 04:20 04:20 WBC 12.2 H RBC 3.53 L Hgb 7.9 L Hct 27.2 L MCV 77.1 L MCH 22.4 L MCHC 29.0 L RDW 19.6 H Plt Count 168 MPV 11.6 Immature Gran % 0.3 Seg Neutrophils % 86.8 Lymphocytes % 6.6 Monocytes % 5.3 Eosinophils % 0.7 Basophils % 0.3 Neutrophils # 10.6 H Lymphocytes # 0.8 Monocytes # 0.7 Eosinophils # 0.1 Basophils # 0.0 ESR Sodium 135 L Potassium 4.1 Chloride 99 Carbon Dioxide 29 BUN 19 Creatinine 2.83 H Est GFR ( Amer) 20 L Est GFR (Non-Af Amer) 17 L BUN/Creatinine Ratio 7 Glucose 139 H POC Glucose Calculated Osmolality 285 Lactic Acid Calcium 8.9 Magnesium 2.0 Creatine Kinase C-Reactive Protein Random Vancomycin 16 Chlamy pneumoniae PCR Adenovirus (PCR) B. pertussis DNA (PCR) B.parapertussis DNA PCR Coronavirus OC43 (PCR) Coronavirus HKU1 (PCR) Coronavirus 229E (PCR) Coronavirus NL63 (PCR) Human Metapneumovir PCR Influenza A (H1) PCR Influ A (H1N1/09) PCR Influenza A (H3) PCR Influenza A Untype (PCR) Influenza Type B (PCR) M.pneumoniae DNA (PCR) Parainfluenza 1 (PCR) Parainfluenza 2 (PCR) Parainfluenza 3 (PCR) Parainfluenza 4 (PCR) RSV (PCR) Entero/Rhino (PCR) - Impressions Impressions Abdomen/Pelvis CT 08/25/18 18:00 IMPRESSION: 1. Bilateral pleural effusion and partial atelectasis of the lower lobes. Superimposed opacities in the lower lobes which may reflect edema or pneumonia. 2. Small ascites in the abdomen and pelvis. Edema of the subcutaneous fat. Findings are nonspecific but can be seen with generalized edema. D/ / Fidel Fitzgerald MD / Fidel Fitzgerald MD Interpreting Provider: Fidel Fitzgerald MD - ABG Interpretation ABG results: ABG ABG pH 7.36 pH Units (7.32-7.45) 08/25/18 02:39 ABG pCO2 50 mmHg (35-45) H 08/25/18 02:39 ABG pO2 53 mmHg (85-104) L 08/25/18 02:39 ABG O2 Saturation 85 % (95-98) L 08/25/18 02:39 Palliative Scale - Palliative Performance Scale How ambulatory is this patient?: Totally bed bound What is patient's level of activity and evidence of disease?: Unable to do any work, Extensive disease How much self-care assistance does patient require?: Total care How much oral intake does the patient have?: Normal or reduced What is this patient's level of consciousness?: Full or confusion Palliative Performance Score: 30 % Consult Discharge Plan - Plan Referrals: Palmira Quintana DO [Primary Care Provider] -
[2018-08-26] MEDS: traMADol 50 MG TABLET PO PRN ×2 (14:24→22:20)
--- NOTE | 2018-08-26 15:34 | Internal Med Progress Note ---
Hospitalist Progress Note - Encounter Date of Encounter: 08/26/18 Time of Encounter: 15:29 - Subjective Interval History: I have seen and evaluated the patient at bedside. She reports that she was taken to dialysis today but she did not complete the treatment, she asked them to stop and bring her back to her room due to pain in her buttocks. reports improvement in her breathing. denies chest pain or shortness of breath. - Exam Vitals: Temp Pulse Resp BP Pulse Ox 97.7 F 88 20 140/64 94 08/26/18 13:53 08/26/18 13:53 08/26/18 13:53 08/26/18 13:53 08/26/18 13:53 Exam: Vitals: Reviewed. General: Obese, AOx4. In mild distress due to pain in her buttocks. Skin: chronic venous insuficciency b/l lower ext. multiple stage II ulceration in the right upper arm. HEENT: EOM, pupils equal, round and reactive. Cardiovascular: RRR, Normal S1 & S2, no rubs, murmurs or gallops. Lungs: bilateral crackles heard at the bases, mild b/l scattered expiratory wheezes. Abdomen: Obese, Soft, non-tender, no rigidity. Extremities: erythema, warmth and tenderness b/l in the lower extr L>R Neurological: Normal cognition and motor skills. Rest of the physical exam is non contributory - Assessment and Plan (1) HCAP (healthcare-associated pneumonia) Current Visit: No Status: Acute Assessment and Plan: Patient recently diagnosed with E.coli ESBL on the sputum. empirically being covered with ertapenem 500mg/IV HS blood culture: no growth, pending final report sputum culture sent: pending report (2) Acute and chronic respiratory failure Current Visit: Yes Status: Acute Assessment and Plan: improved, multifactorial. Possible due to Hcap Vs volume overload due to HD non- compliance. Plan continue O2 by nasal cannula, titrate for O2Sat >92% DuoNeb Q6RT scheduled Albuterol Nebs Q6RT PRN On symbicort (3) CAD (coronary artery disease) Current Visit: No Status: Chronic Assessment and Plan: Continue dual antiplatelet therapy with aspirin 81 mg by mouth daily and clopidogrel 75 mg by mouth daily (4) Diabetes mellitus Current Visit: No Status: Chronic Assessment and Plan: Blood sugar is well controlled. Carb controlled diet Continue Levemir 34 units at bedtime, and lispro low-dose before meals sliding scale (5) Hypertension Current Visit: No Status: Chronic Assessment and Plan: Blood pressure is well controlled. Patient on multiple antihypertensive medic ation. Continue amlodipine 5 mg by mouth daily, carvedilol 12.5 mg by mouth twice a day. On isosorbide 30 mg by mouth daily. (6) ESRD (end stage renal disease) on dialysis Current Visit: No Status: Chronic Assessment and Plan: Patient noncompliant to renal replacement therapy. Renal replacement therapy as per nephrology team. (7) CHF (congestive heart failure) Current Visit: Yes Status: Acute Assessment and Plan: Volume overload. Bilateral crackles. Plan: Continue volume restrictive the strategies with fluid restriction to 1.5 L a day. On isosorbide 30 mg by mouth daily. On a beta vera. Daily weight Strict intake and output. (8) Cellulitis Current Visit: Yes Status: Acute Assessment and Plan: Acute on chronic cellulitis of the lower extremity. Patient on broad-spectrum antibiotic On ertapenem and 500 mg IV daily. DVT Prophylaxis: On heparin 5000 units subcutaneous twice a day - Summary of Assessment and Plan Summary of Assessment and Plan: Patient to remain in the hospital due to volume overload. Potential transfer to ECF with hospice tomorrow. - Time Spent with Patient Total time spent is greater than 50% in coordination of care (as documented) at patient's floor/unit and/or counseling patient: Greater than 35 minutes (41) Plan of Care Discussed with: patient (aand the nurse.) Internal Medicine: Result - Labs CBC & Chem 7: 08/26/18 04:20 08/26/18 04:20 Labs: Short CBC 08/26/18 Range/Units 04:20 WBC 12.2 H (4.3-11.1) K/mcL Hgb 7.9 L (11.5-15.4) g/dL Hct 27.2 L (35.3-44.9) % Plt Count 168 (140-400) K/mcL Neutrophils # 10.6 H (1.6-8.9) K/mcL BMP 08/26/18 04:20 Sodium 135 L Potassium 4.1 Chloride 99 Carbon Dioxide 29 BUN 19 Creatinine 2.83 H Glucose 139 H Calcium 8.9 - ABG Interpretation ABG results: ABG ABG pH 7.36 pH Units (7.32-7.45) 08/25/18 02:39 ABG pCO2 50 mmHg (35-45) H 08/25/18 02:39 ABG pO2 53 mmHg (85-104) L 08/25/18 02:39 ABG O2 Saturation 85 % (95-98) L 08/25/18 02:39 - Impressions Impressions Abdomen/Pelvis CT 08/25/18 18:00 IMPRESSION: 1. Bilateral pleural effusion and partial atelectasis of the lower lobes. Superimposed opacities in the lower lobes which may reflect edema or pneumonia. 2. Small ascites in the abdomen and pelvis. Edema of the subcutaneous fat. Findings are nonspecific but can be seen with generalized edema. D/ / Fidel Fitzgerald MD / Fidel Fitzgerald MD Interpreting Provider: Fidel Fitzgerald MD Consult Discharge Plan - Plan Referrals: Palmira Quintana DO [Primary Care Provider] - ____ (2) Acute and chronic respiratory failure Qualifiers: Respiratory failure complication: hypoxia Qualified Code(s): J96.21 - Acute and chronic respiratory failure with hypoxia (3) CAD (coronary artery disease) Qualifiers: Coronary Disease-Associated Artery/Lesion type: [place] artery [place] vs. transplanted heart: [place] heart Associated angina: with unstable angina Qualified Code(s): I25.110 - Atherosclerotic heart disease of [place] coronary artery with unstable angina pectoris (4) Diabetes mellitus Qualifiers: Diabetes mellitus type: type 2 Diabetes mellitus residential insulin use: with residential use Diabetes mellitus complication status: with hyperglycemia Qualified Code(s): E11.65 - Type 2 diabetes mellitus with hyperglycemia; Z79.4 - director long term care (current) use of insulin; Z79.4 - director long term care (current) use of insulin; Z79.4 - director long term care (current) use of insulin; Z79.4 - [facility] (current) use of insulin (5) Hypertension Qualifiers: Hypertension type: essential hypertension Qualified Code(s): I10 - Essential (primary) hypertension (7) CHF (congestive heart failure) Qualifiers: Heart failure type: diastolic Heart failure chronicity: chronic Qualified Code(s): I50.32 - Chronic diastolic (congestive) heart failure (8) Cellulitis Qualifiers: Site of cellulitis: extremity Site of cellulitis of extremity: upper extremity Laterality: left Qualified Code(s): L03.114 - Cellulitis of left upper limb
[2018-08-26] MEDS: Metoclopramide 10 MG/10 ML UD.LIQ PO SCH (17:55)
[2018-08-26] MEDS: risperiDONE 1 MG TABLET PO PRN (22:20)
[2018-08-26] MEDS: Insulin DETEMIR 100 UNIT/ML X5UNITS SQ SCH (22:21)
[2018-08-27] MEDS: *HR* Heparin 5,000 UNIT/ML VIAL SQ SCH ×3 (05:13→22:01)
[2018-08-27 05:33] LABS: Basophils % 0.5 %; Mean Corpuscular Hemoglobin 22.2 pg (28.0-33.3)
[2018-08-27 05:34] LABS: Eosinophils # 0.1 K/mcL (0.0-0.6); Eosinophils % 1.6 %; Hematocrit 27.4 % (35.3-44.9); Hemoglobin 7.8 g/dL (11.5-15.4); Immature Granulocytes % 0.5 % (0-4); Lymphocytes # 0.9 K/mcL (0.6-4.6); Lymphocytes % 10.2 %; Mean Corpuscular HGB Conc 28.5 g/dL (31.6-35.5); Mean Corpuscular Volume 77.8 fL (83.0-100.0); Mean Platelet Volume 11.6 fL (9.4-12.4); Monocytes # 0.7 K/mcL (0.0-1.3); Neutrophils # 6.7 K/mcL (1.6-8.9); Platelet Count 171 K/mcL (140-400); Red Blood Count 3.52 M/mcL (3.82-4.97); Red Cell Distribution Width 19.2 % (11.5-14.5); Segmented Neutrophils % 79.2 %
[2018-08-27 05:45] LABS: Calcium 8.7 mg/dL (8.6-10.3); Phosphorous 3.6 mg/dL (2.7-4.5); Potassium 4.1 mEq/L (3.5-5.1)
[2018-08-27 06:27] LABS: Hypochromasia Present (Not Present); Platelet Estimate Normal (Normal)
[2018-08-27] MEDS ORDERED: 0.9 % Sodium Chloride 2,000 ML ONE (06:59)
[2018-08-27] MEDS ORDERED: 0.9 % Sodium Chloride 250 ML IVC PRN (07:03)
[2018-08-27] MEDS: Gentamicin OPTH Soln 5 ML BOTTLE LEFT EYE SCH ×5 (07:57→22:04)
[2018-08-27] MEDS: Insulin LISPRO 300 UNITS/3 ML VIAL SQ SCH ×4 (08:06→22:06)
[2018-08-27] MEDS: (Colestipol Hcl [Colestid] 1 GM) PO SCH ×2 (08:07→22:05)
[2018-08-27] MEDS: Renal Vitamin 1 CAP CAPSULE PO SCH (08:10)
[2018-08-27] MEDS: traMADol 50 MG TABLET PO PRN ×3 (08:10→22:02)
[2018-08-27] MEDS: ARIPiprazole 10 MG TABLET PO SCH (08:10)
[2018-08-27] MEDS: Aspirin Enteric Coated 81 MG Tablet PO SCH (08:12)
[2018-08-27] MEDS: Lactobacillus 1 EACH CAP.SPRINK PO SCH (08:12)
[2018-08-27] MEDS: Gabapentin 100 MG CAPSULE PO SCH ×3 (08:12→22:02)
[2018-08-27] MEDS: Calcium Acetate 667 MG CAPSULE PO SCH ×3 (08:12→17:18)
[2018-08-27] MEDS: Sucralfate 1 GM TABLET PO SCH ×4 (08:12→22:02)
[2018-08-27] MEDS ORDERED: Vancomycin 500 MG in 0.9 % Sodium Chloride Mini Bag 100 ML IVPB ONE (09:00)
[2018-08-27] MEDS: Budesonide/Formoterol 160/4.5 1 PUFF INH IH SCH ×2 (09:42→22:33)
--- NOTE | 2018-08-27 10:43 | Palliative Progress Note ---
Date of Encounter: 08/27/18 Time of Encounter: 10:45 - Assessment and plan (1) Generalized pain Current Visit: Yes Status: Acute Assessment and plan: Tramadol utilized x3 last 24 hours. States this has been "somewhat helpful" for her discomfort. Continue and monitor (2) Physical debility Current Visit: No Status: Chronic (3) Altered mental status Current Visit: No Status: Resolved Assessment and plan: Resolved. Alert and oriented x3 Qualifiers: Altered mental status type: unspecified Qualified Code(s): R41.82 - Altered mental status, unspecified (4) Dyspnea Current Visit: No Status: Acute Qualifiers: Dyspnea type: shortness of breath Qualified Code(s): R06.02 - Shortness of breath; R06.00 - Dyspnea, unspecified; R06.01 - Orthopnea (5) Goals of care, counseling/discussion Current Visit: No Status: Acute Assessment and plan: I saw patient in dialysis to f/u on discussion yesterday regarding goals of care and continued dialysis. Yesterday, she desired to stop dialysis and enroll in hospice care, but today,, she states that she has changed her mind, and does not want hospice. She wants to continue dialysis. I discussed with her once again that she needs to be compliant with sessions when she get out of hospital, or she will continue to come back here, and this cannot continue. I also discussed she needs to be compliant with dietary restrictions, and needs to stop calling the kitchen at [facility] and ordering additional food. She verbalized understanding. She is hoping to speak with sons this weekend. I did get in touch with her son, Leo and made him aware of her decision. D/W Dr. Hernandez and informed hospitalist and primary nurse Marta as well. (6) ESRD on hemodialysis Current Visit: No Status: Chronic - Time Spent With Patient Total time spent is greater than 50% in coordination of care (as documented) at patient's floor/unit and/or counseling patient: - Subjective Interval history: Patient seen in dialysis. She is alert and oriented and pleasant. States she feels more like herself today. She is hoping sons visit this weekend. I told her I haven't heard from them as of yet. She wants to continue dialysis. States pain pill helping "some". Appears comfortable and in no distress. - Constitutional Vitals: Abnormal lab results RBC 3.52 M/mcL (3.82-4.97) L 08/27/18 05:05 Hgb 7.8 g/dL (11.5-15.4) L 08/27/18 05:05 Hct 27.4 % (35.3-44.9) L 08/27/18 05:05 MCV 77.8 fL (83.0-100.0) L 08/27/18 05:05 MCH 22.2 pg (28.0-33.3) L 08/27/18 05:05 MCHC 28.5 g/dL (31.6-35.5) L 08/27/18 05:05 RDW 19.2 % (11.5-14.5) H 08/27/18 05:05 Hypochromasia Present (Not Present) A 08/27/18 05:05 Anisocytosis 1+ (Not Present) A 08/25/18 03:36 ESR 64 mm/hr (0-15) H 08/25/18 15:04 ABG pCO2 50 mmHg (35-45) H 08/25/18 02:39 ABG pO2 53 mmHg (85-104) L 08/25/18 02:39 ABG HCO3 29 mEq/L (21-27) H 08/25/18 02:39 ABG Total CO2 30 mEq/L (20-26) H 08/25/18 02:39 ABG O2 Saturation 85 % (95-98) L 08/25/18 02:39 Sodium 132 mEq/L (136-145) L 08/27/18 05:05 Chloride 97 mEq/L (98-107) L 08/27/18 05:05 Creatinine 2.73 mg/dL (0.60-1.20) H 08/27/18 05:05 Est GFR ( Amer) 21 (> 60) L 08/27/18 05:05 Est GFR (Non-Af Amer) 18 (> 60) L 08/27/18 05:05 Glucose 135 mg/dL (70-105) H 08/27/18 05:05 POC Glucose 105 mg/dL (70-99) H 08/27/18 06:47 Calculated Osmolality 278 (280-300) L 08/27/18 05:05 Creatine Kinase 14 Units/L (30-223) L 08/25/18 16:48 C-Reactive Protein 77 mg/L (Less than 10) H 08/25/18 15:04 B-Natriuretic Peptide 852 pg/mL (Less than 100) H 08/25/18 03:36 General appearance: Present: no acute distress - Respiratory Additional comments: Scattered rhonchi. - Cardiovascular Cardiovascular exam: Present: +S1, +S2 - GI/Abdominal GI/Abdominal exam: Present: normal bowel sounds, soft - Extremities Exam Additional comments: Lower extremities with dried ulcers. I did not turn her in dialysis to examine backside r/t tubes, lines - Neurological Exam Neurological exam: Present: alert, oriented X3, strengths equal and symetr throughout - Skin Skin exam: Present: dry, warm Palliative Quality Palliative Quality: Screen for Code Status: Yes, Screen for Goals of Care: Yes, Screen for Pain: Yes, If Pain Regimen Started, Initiate Bowel Regimen: NA, Screen for Nausea/Vomitting: Yes Code Status: 08/25/18 14:59 DNR [Resuscitation Status: Active] [RES] Routine Comment: Resuscitation Status: DNR-Comfort Care - Labs CBC & Chem 7: 08/27/18 05:05 08/27/18 05:05 Labs: Laboratory Results - last 24 hr 08/26/18 08/26/18 08/26/18 08:09 13:46 18:07 WBC RBC Hgb Hct MCV MCH MCHC RDW Plt Count MPV Immature Gran % Seg Neutrophils % Lymphocytes % Monocytes % Eosinophils % Basophils % Neutrophils # Lymphocytes # Monocytes # Eosinophils # Basophils # Platelet Estimate Hypochromasia Sodium Potassium Chloride Carbon Dioxide BUN Creatinine Est GFR ( Amer) Est GFR (Non-Af Amer) BUN/Creatinine Ratio Glucose POC Glucose 226 H 185 H 213 H Calculated Osmolality Calcium Phosphorus Magnesium Random Vancomycin 08/26/18 08/27/18 08/27/18 21:03 05:05 05:05 WBC 8.5 RBC 3.52 L Hgb 7.8 L Hct 27.4 L MCV 77.8 L MCH 22.2 L MCHC 28.5 L RDW 19.2 H Plt Count 171 MPV 11.6 Immature Gran % 0.5 Seg Neutrophils % 79.2 Lymphocytes % 10.2 Monocytes % 8.0 Eosinophils % 1.6 Basophils % 0.5 Neutrophils # 6.7 Lymphocytes # 0.9 Monocytes # 0.7 Eosinophils # 0.1 Basophils # 0.0 Platelet Estimate Normal Hypochromasia Present A Sodium Potassium Chloride Carbon Dioxide BUN Creatinine Est GFR ( Amer) Est GFR (Non-Af Amer) BUN/Creatinine Ratio Glucose POC Glucose 197 H Calculated Osmolality Calcium Phosphorus Magnesium Random Vancomycin 16 08/27/18 08/27/18 05:05 06:47 WBC RBC Hgb Hct MCV MCH MCHC RDW Plt Count MPV Immature Gran % Seg Neutrophils % Lymphocytes % Monocytes % Eosinophils % Basophils % Neutrophils # Lymphocytes # Monocytes # Eosinophils # Basophils # Platelet Estimate Hypochromasia Sodium 132 L Potassium 4.1 Chloride 97 L Carbon Dioxide 29 BUN 18 Creatinine 2.73 H Est GFR ( Amer) 21 L Est GFR (Non-Af Amer) 18 L BUN/Creatinine Ratio 7 Glucose 135 H POC Glucose 105 H Calculated Osmolality 278 L Calcium 8.7 Phosphorus 3.6 Magnesium 2.0 Random Vancomycin - ABG Interpretation ABG results: ABG ABG pH 7.36 pH Units (7.32-7.45) 08/25/18 02:39 ABG pCO2 50 mmHg (35-45) H 08/25/18 02:39 ABG pO2 53 mmHg (85-104) L 08/25/18 02:39 ABG O2 Saturation 85 % (95-98) L 08/25/18 02:39 Palliative Scale - Palliative Performance Scale How ambulatory is this patient?: Totally bed bound What is patient's level of activity and evidence of disease?: Unable to do any work, Extensive disease How much self-care assistance does patient require?: Total care How much oral intake does the patient have?: Normal or reduced What is this patient's level of consciousness?: Full or confusion Palliative Performance Score: 30 % Consult Discharge Plan - Plan Referrals: Palmira Quintana DO [Primary Care Provider] -
--- NOTE | 2018-08-27 10:51 | Nephrology Progress Note ---
Date of Encounter: 08/27/18 Time of Encounter: 10:00 - Assessment and Plan (1) ESRD (end stage renal disease) on dialysis Status: Chronic Dialysis Note: she was s/e while on HD and affirmed having less swelling. She was tolerating the HD without hypotension and with good Art and Venous pressures. Next HD would be planned for Wednesday vs Wednesday. I will be available tomorrow (Wednesday) if needed. Please feel free to call or page me with any questions. Thank you. (2) Anemia of chronic disease Status: Chronic Will arrange for KAITLIN while here. Goal Hgb is 10-11. (3) Failure to thrive Status: Acute acute on chronic with recurrent admissions every few days. Appreciate Palliative Care. The pt is no longer a dialysis candidate and should have dialysis stopped. She already DNR Comfort Care. Qualifiers: Failure to thrive age range: in adult Qualified Code(s): R62.7 - Adult failure to thrive Subjective Principal diagnosis: ESRD Interval history: I saw and examined her while on HD again today. She reported that she was breathing more comfortably and denied N/V or F/C. Objective - Vital Signs Vital signs: Vital Signs Temp Pulse Resp BP Pulse Ox 08/27/18 09:15 121/64 08/27/18 09:00 97.5 F L 20 128/84 08/27/18 06:48 97.6 F 80 15 122/73 95 08/27/18 03:08 97.6 F 79 24 117/52 91 08/26/18 22:08 20 95 08/26/18 20:00 97.5 F L 87 16 112/61 97 08/26/18 18:17 98.3 F 08/26/18 17:59 87 20 114/64 95 08/26/18 13:53 97.7 F 88 20 140/64 94 08/26/18 13:04 97.6 F 18 142/67 08/26/18 12:10 139/60 08/26/18 12:05 128/67 08/26/18 11:50 124/65 08/26/18 11:35 131/62 08/26/18 11:20 137/58 08/26/18 11:05 131/61 Intake and Output 11/16/18 11/17/18 11/17/18 23:59 07:59 15:59 Intake Total 600 / 600 0 / 0 960 / 960 Output Total 0 / 0 Balance 600 / 600 0 / 0 960 / 960 Intake: IV Fluids 100 / 100 INVanz 500 MG In 0.9 % Sodium 100 / 100 Chloride 100 ML @ 100 mls/hr IVPB HS NATALIE Rx#:[id number] Oral 500 / 500 0 / 0 360 / 360 Intake, Rinseback and Flushes 600 / 600 Output: Urine 0 / 0 Other: Meal Dinner Breakfast Percent of Meal Consumed 100% 100% Stool Size Smear # Voids 1 Weight 119.7 kg 119.7 kg Blood Glucose* 197 105 Hemodialysis Net Fluid Removed 285 (mL) Patient Weight 08/27/18 23:59 Weight 119.7 kg - General Appearance Exam: General appearance: appears started age, obese, moderate distress, fatigue, frail EENT: ATNC, PERRL, mucous membranes moist Neck: supple Respiratory: rales, course breath sounds, rhonchi Cardiology: edema (2-3+ pretibial pitting edema b/l), regular rate, regular rhythm, normal S1, normal S2 - Dialysis Access Dialysis Vascular Access: Arteriovenous Graft (LUE AVG with +Thrill/bruit) Gastrointestinal: normoactive bowel sounds, no tenderness, no guarding, obese Integumentary: rash, erythema, ecchymotic, skin tear, chronic venous stasis Neurologic: no focal deficit, no asterixis, confused Musculoskeletal: no deformities, no erythema, no cyanosis Psychiatric: mood/affect appropriate, cooperative - Lab 08/28/18 04:39 08/28/18 04:39 Most recent lab results ABG pH 7.36 pH Units (7.32-7.45) 08/25/18 02:39 ABG pCO2 50 mmHg (35-45) H 08/25/18 02:39 ABG pO2 53 mmHg (85-104) L 08/25/18 02:39 ABG HCO3 29 mEq/L (21-27) H 08/25/18 02:39 ABG O2 Saturation 85 % (95-98) L 08/25/18 02:39 Calcium 8.7 mg/dL (8.6-10.3) 08/27/18 05:05 Phosphorus 3.6 mg/dL (2.7-4.5) 08/27/18 05:05 Magnesium 2.0 mg/dL (1.6-2.6) 08/27/18 05:05 Consult Discharge Plan - Plan Referrals: Palmira Quintana DO [Primary Care Provider] -
--- NOTE | 2018-08-27 12:55 | Internal Med Progress Note ---
Hospitalist Progress Note - Encounter Date of Encounter: 08/27/18 Time of Encounter: 12:52 - Subjective Interval History: I have seen and evaluated the patient at bedside. Patient reports that she is feeling better today, that her pain is better controlled. Reports improvement in her breathing, denies shortness of breath, chest pain nausea vomiting. P atient reports that she wants to continue having renal replacement therapy. - Exam Vitals: Temp Pulse Resp BP Pulse Ox 97.5 F L 80 20 133/68 95 08/27/18 09:00 08/27/18 06:48 08/27/18 09:00 08/27/18 11:00 08/27/18 06:48 Exam: Vitals: Reviewed. General: Obese, AOx4. No distress. Skin: chronic venous insuficciency b/l lower ext. multiple stage II ulceration in the right upper arm. Cardiovascular: RRR, Normal S1 & S2, no rubs, murmurs or gallops. Lungs: Clear to auscultation bilaterally, no crackles, wheezing or rales. Abdomen: Obese, Soft, non-tender, no rigidity. Extremities: erythema, warmth and tenderness b/l in the lower extr L>R. Clean dressing on the lower extremity bilaterally. Neurological: Normal cognition and motor skills. Psych: Affect appropriate. Rest of the physical exam is non contributory - Assessment and Plan (1) HCAP (healthcare-associated pneumonia) Current Visit: No Status: Acute Assessment and Plan: Plan on etapenem 500mg/IV daily empirically due to recent sputum culture E.coli ESBL on the sputum. Blood culture: No growth, pending final report pending sputum culture (2) Acute and chronic respiratory failure Current Visit: Yes Status: Resolved Assessment and Plan: Continue oxygen by nasal cannula titrate for O2 sat duration more than 92%. Duo-nebs Q4RT scheduled albuterol Nebs Q6RT PRN Continue Symbicort (3) CAD (coronary artery disease) Current Visit: No Status: Chronic Assessment and Plan: Patient on dual antiplatelet therapy with aspirin, rosuvastatin 20 mg by mouth daily and Plavix. (4) Diabetes mellitus Current Visit: No Status: Chronic Assessment and Plan: Blood sugar is well controlled. Continue carb controlled diet. Levemir 34 units at bedtime On lispro low-dose sliding scale before meals. (5) Hypertension Current Visit: No Status: Chronic Assessment and Plan: Blood pressure is well controlled. Patient is on carvedilol 12.5 mg by mouth twice a day, isosorbide 30 mg by mouth daily. (6) ESRD (end stage renal disease) on dialysis Current Visit: No Status: Chronic Assessment and Plan: Patient changed her mind and wants to continue receiving renal replacement therapy. Renal replacement therapy as per nephrology recommendation. Patient is on Renvela 80 mg by mouth daily. PhosLo 1334 milligrams by mouth 3 times a day. With meals (7) CHF (congestive heart failure) Current Visit: Yes Status: Acute Assessment and Plan: Acute exacerbation has resolved following dialysis. Continue volume restricted a strategy to 1.5 L a day. Continue carvedilol 12.5 mg by mouth twice a day and isosorbide 30 mg by mouth daily. Daily weight, A strict intake and output. (8) Cellulitis Current Visit: Yes Status: Chronic Assessment and Plan: Acute on chronic Chronic cellulitis of the lower extremity. Patient on a broad-spectrum antibiotic. Wound care per wound care nurse recommendation. (9) Anemia of chronic disease Current Visit: Yes Status: Chronic Assessment and Plan: H&H slightly drop when compared with admission We will continue to monitor. Patient on Aranesp DVT Prophylaxis: On heparin 5000 units twice a day - Summary of Assessment and Plan Summary of Assessment and Plan: Patient to remain in the hospital due to pneumonia, pending blood and sputum cultures sensitivity and specificity. Potential discharge tomorrow. - Time Spent with Patient Total time spent is greater than 50% in coordination of care (as documented) at patient's floor/unit and/or counseling patient: Greater than 35 minutes (45) Plan of Care Discussed with: patient (and the nurse.) Internal Medicine: Result - Labs CBC & Chem 7: 08/27/18 05:05 08/27/18 05:05 Labs: Short CBC 08/27/18 Range/Units 05:05 WBC 8.5 (4.3-11.1) K/mcL Hgb 7.8 L (11.5-15.4) g/dL Hct 27.4 L (35.3-44.9) % Plt Count 171 (140-400) K/mcL Neutrophils # 6.7 (1.6-8.9) K/mcL BMP 08/27/18 05:05 Sodium 132 L Potassium 4.1 Chloride 97 L Carbon Dioxide 29 BUN 18 Creatinine 2.73 H Glucose 135 H Calcium 8.7 - ABG Interpretation ABG results: ABG ABG pH 7.36 pH Units (7.32-7.45) 08/25/18 02:39 ABG pCO2 50 mmHg (35-45) H 08/25/18 02:39 ABG pO2 53 mmHg (85-104) L 08/25/18 02:39 ABG O2 Saturation 85 % (95-98) L 08/25/18 02:39 Consult Discharge Plan - Plan Referrals: Palmira Quintana DO [Primary Care Provider] - (2) Acute and chronic respiratory failure Qualifiers: Respiratory failure complication: hypoxia Qualified Code(s): J96.21 - Acute and chronic respiratory failure with hypoxia (3) CAD (coronary artery disease) Qualifiers: Coronary Disease-Associated Artery/Lesion type: [place] artery [place] vs. transplanted heart: [place] heart Associated angina: with unstable angina Qualified Code(s): I25.110 - Atherosclerotic heart disease of [place] coronary artery with unstable angina pectoris (4) Diabetes mellitus Qualifiers: Diabetes mellitus type: type 2 Diabetes mellitus intermediate insulin use: with intermediate use Diabetes mellitus complication status: with hyperglycemia Qualified Code(s): E11.65 - Type 2 diabetes mellitus with hyperglycemia; Z79.4 - hay chopper (current) use of insulin; Z79.4 - senior care (current) use of insulin; Z79.4 - hay chopper (current) use of insulin; Z79.4 - senior care (current) use of insulin (5) Hypertension Qualifiers: Hypertension type: essential hypertension Qualified Code(s): I10 - Essential (primary) hypertension (7) CHF (congestive heart failure) Qualifiers: Heart failure type: diastolic Heart failure chronicity: chronic Qualified Code(s): I50.32 - Chronic diastolic (congestive) heart failure (8) Cellulitis Qualifiers: Site of cellulitis: extremity Site of cellulitis of extremity: upper extremity Laterality: left Qualified Code(s): L03.114 - Cellulitis of left upper limb
[2018-08-27] MEDS: amLODIPine 5 MG TABLET PO SCH (14:01)
[2018-08-27] MEDS: Isosorbide MONOnitrate (24 HR) 30 MG TAB.ER.24H PO SCH (14:02)
[2018-08-27] MEDS: Collagenase Oint 1 APPL GRAM TP SCH (16:56)
[2018-08-27] MEDS: Metoclopramide 10 MG/10 ML UD.LIQ PO SCH (17:18)
[2018-08-27] MEDS: risperiDONE 1 MG TABLET PO PRN (22:02)
[2018-08-27] MEDS: Insulin DETEMIR 100 UNIT/ML X5UNITS SQ SCH (22:04)
[2018-08-28] MEDS: traMADol 50 MG TABLET PO PRN ×2 (04:30→09:45)
[2018-08-28 04:59] LABS: Basophils % 0.4 %; Eosinophils # 0.1 K/mcL (0.0-0.6); Eosinophils % 1.4 %; Hematocrit 27.5 % (35.3-44.9); Immature Granulocytes % 0.4 % (0-4); Lymphocytes # 0.8 K/mcL (0.6-4.6); Lymphocytes % 11.4 %; Mean Corpuscular HGB Conc 29.1 g/dL (31.6-35.5); Mean Corpuscular Hemoglobin 22.5 pg (28.0-33.3); Mean Corpuscular Volume 77.5 fL (83.0-100.0); Mean Platelet Volume 11.3 fL (9.4-12.4); Monocytes # 0.6 K/mcL (0.0-1.3); Monocytes % 8.2 %; Neutrophils # 5.7 K/mcL (1.6-8.9); Platelet Count 168 K/mcL (140-400); Red Blood Count 3.55 M/mcL (3.82-4.97); Segmented Neutrophils % 78.2 %
[2018-08-28 05:14] LABS: Calcium 9.1 mg/dL (8.6-10.3); Phosphorous 3.1 mg/dL (2.7-4.5); Potassium 4.2 mEq/L (3.5-5.1)
[2018-08-28] MEDS: *HR* Heparin 5,000 UNIT/ML VIAL SQ SCH ×2 (06:40→14:11)
[2018-08-28] MEDS ORDERED: Vancomycin 500 MG in 0.9 % Sodium Chloride Mini Bag 100 ML IVPB ONE (07:00)
[2018-08-28] MEDS: Budesonide/Formoterol 160/4.5 1 PUFF INH IH SCH ×2 (07:50→20:11)
--- NOTE | 2018-08-28 09:18 | Electrocardiograph Report ---
[address] [place] [address] Test Date: 2018-08-25 Pat Name: Lynnette Riley Department: EXAM18 Room: 2NE28 Gender: F Frame Expander: : [id number] Requested By: Melania Ashford Order Number: [id number] Reading MD: Laisha Shepherd Measurements Intervals [place] Rate: 98 P: CO: QRS: 82 QRSD: 87 T: 18 QT: 364 QTc: 465 Interpretive Statements Atrial fibrillation Borderline right axis deviation Nonspecific ST and T abnormalities Electronically Signed On 08-28-2018 9:16:58 EST by Laisha Shepherd
[2018-08-28] MEDS: ARIPiprazole 10 MG TABLET PO SCH (09:44)
[2018-08-28] MEDS: Renal Vitamin 1 CAP CAPSULE PO SCH (09:45)
[2018-08-28] MEDS: Lactobacillus 1 EACH CAP.SPRINK PO SCH (09:45)
[2018-08-28] MEDS: Sucralfate 1 GM TABLET PO SCH ×3 (09:46→18:33)
[2018-08-28] MEDS: Aspirin Enteric Coated 81 MG Tablet PO SCH (09:46)
[2018-08-28] MEDS: Calcium Acetate 667 MG CAPSULE PO SCH ×3 (09:46→18:33)
[2018-08-28] MEDS: Isosorbide MONOnitrate (24 HR) 30 MG TAB.ER.24H PO SCH (09:46)
[2018-08-28] MEDS: Gabapentin 100 MG CAPSULE PO SCH ×2 (09:46→14:12)
[2018-08-28] MEDS: amLODIPine 5 MG TABLET PO SCH (09:47)
[2018-08-28] MEDS: Collagenase Oint 1 APPL GRAM TP SCH (10:15)
[2018-08-28] MEDS: (Colestipol Hcl [Colestid] 1 GM) PO SCH (10:17)
[2018-08-28] MEDS: Insulin LISPRO 300 UNITS/3 ML VIAL SQ SCH ×3 (10:17→18:34)
[2018-08-28] MEDS: Gentamicin OPTH Soln 5 ML BOTTLE LEFT EYE SCH ×3 (10:17→18:32)
--- NOTE | 2018-08-28 11:03 | Palliative Progress Note ---
Date of Encounter: 08/28/18 Time of Encounter: 11:00 - Assessment and plan (1) Generalized pain Current Visit: Yes Status: Acute Assessment and plan: Patient has utilized Tramadol x4 last 24hours. Continue and monitor (2) Physical debility Current Visit: No Status: Chronic (3) Altered mental status Current Visit: No Status: Resolved Qualifiers: Altered mental status type: unspecified Qualified Code(s): R41.82 - Altered mental status, unspecified (4) Dyspnea Current Visit: No Status: Acute Qualifiers: Dyspnea type: shortness of breath Qualified Code(s): R06.02 - Shortness of breath; R06.00 - Dyspnea, unspecified; R06.01 - Orthopnea (5) Goals of care, counseling/discussion Current Visit: No Status: Acute Assessment and plan: Met with pt and 2 sons at bedside. Re-discussed goals of care. Sons spoke with pt and were very open about their frustration with her noncompliance. They desire for her to come back home with passport help and to live with Gee and his girlfriend, but states they cannot to do unless she is able to stand and pivot to chair or wheelchair. They expressed frustration with ECF visits, and told their mother they are no longer going to visit to "just take her to smoke". Patient stated that she understands why they are frustrated with her, and she does want to try and improve her health. We discussed getting goals - I encouraged more family visits to ECF and communication from her grandchildren. She does want to continue dialysis, and does not want hospice care. We also discussed again how compliance with her diet and participating with therapy are important for her health and restoring some functional status. Face to face meeting with pt/family in coordination and counseling was 60 minutes. (6) ESRD on hemodialysis Current Visit: No Status: Chronic - Time Spent With Patient Total time spent is greater than 50% in coordination of care (as documented) at patient's floor/unit and/or counseling patient: - Subjective Interval history: Patient resting quietly in bed. She is alert and oriented and pleasant. Sons Leo and Gee at bedside. Patient is currently comfortable - was recently medicated for pain. She did complete dialysis yesterday. Some nausea this am. No other complaints. - Constitutional Vitals: Abnormal lab results RBC 3.55 M/mcL (3.82-4.97) L 08/28/18 04:39 Hgb 8.0 g/dL (11.5-15.4) L 08/28/18 04:39 Hct 27.5 % (35.3-44.9) L 08/28/18 04:39 MCV 77.5 fL (83.0-100.0) L 08/28/18 04:39 MCH 22.5 pg (28.0-33.3) L 08/28/18 04:39 MCHC 29.1 g/dL (31.6-35.5) L 08/28/18 04:39 RDW 19.0 % (11.5-14.5) H 08/28/18 04:39 Hypochromasia Present (Not Present) A 08/27/18 05:05 Anisocytosis 1+ (Not Present) A 08/25/18 03:36 ESR 64 mm/hr (0-15) H 08/25/18 15:04 ABG pCO2 50 mmHg (35-45) H 08/25/18 02:39 ABG pO2 53 mmHg (85-104) L 08/25/18 02:39 ABG HCO3 29 mEq/L (21-27) H 08/25/18 02:39 ABG Total CO2 30 mEq/L (20-26) H 08/25/18 02:39 ABG O2 Saturation 85 % (95-98) L 08/25/18 02:39 Sodium 134 mEq/L (136-145) L 08/28/18 04:39 Creatinine 2.41 mg/dL (0.60-1.20) H 08/28/18 04:39 Est GFR ( Amer) 25 (> 60) L 08/28/18 04:39 Est GFR (Non-Af Amer) 20 (> 60) L 08/28/18 04:39 BUN/Creatinine Ratio 5 (6-26) L 08/28/18 04:39 Glucose 136 mg/dL (70-105) H 08/28/18 04:39 POC Glucose 105 mg/dL (70-99) H 08/27/18 06:47 Creatine Kinase 14 Units/L (30-223) L 08/25/18 16:48 C-Reactive Protein 77 mg/L (Less than 10) H 08/25/18 15:04 B-Natriuretic Peptide 852 pg/mL (Less than 100) H 08/25/18 03:36 General appearance: Present: no acute distress - Respiratory Respiratory exam: Present: decreased breath sounds, CTAB - Cardiovascular Cardiovascular exam: Present: +S1, +S2 - GI/Abdominal GI/Abdominal exam: Present: normal bowel sounds, soft - Extremities Exam Additional comments: Ulcers remain to lower extremities and 2nd lt toe - Neurological Exam Neurological exam: Present: alert, oriented X3, strengths equal and symetr throughout - Psychiatric Psychiatric exam: Present: flat affect - Skin Skin exam: Present: dry, warm Palliative Quality Palliative Quality: Screen for Code Status: Yes, Screen for Goals of Care: Yes, Screen for Pain: Yes, If Pain Regimen Started, Initiate Bowel Regimen: NA, Screen for Nausea/Vomitting: Yes Code Status: 08/25/18 14:59 DNR [Resuscitation Status: Active] [RES] Routine Comment: Resuscitation Status: DNR-Comfort Care - Labs CBC & Chem 7: 08/28/18 04:39 08/28/18 04:39 Labs: Laboratory Results - last 24 hr 08/28/18 08/28/18 08/28/18 04:39 04:39 04:39 WBC 7.3 RBC 3.55 L Hgb 8.0 L Hct 27.5 L MCV 77.5 L MCH 22.5 L MCHC 29.1 L RDW 19.0 H Plt Count 168 MPV 11.3 Immature Gran % 0.4 Seg Neutrophils % 78.2 Lymphocytes % 11.4 Monocytes % 8.2 Eosinophils % 1.4 Basophils % 0.4 Neutrophils # 5.7 Lymphocytes # 0.8 Monocytes # 0.6 Eosinophils # 0.1 Basophils # 0.0 Sodium 134 L Potassium 4.2 Chloride 98 Carbon Dioxide 28 BUN 13 Creatinine 2.41 H Est GFR ( Amer) 25 L Est GFR (Non-Af Amer) 20 L BUN/Creatinine Ratio 5 L Glucose 136 H Calculated Osmolality 280 Calcium 9.1 Phosphorus 3.1 Magnesium 2.0 Random Vancomycin 15 - ABG Interpretation ABG results: ABG ABG pH 7.36 pH Units (7.32-7.45) 08/25/18 02:39 ABG pCO2 50 mmHg (35-45) H 08/25/18 02:39 ABG pO2 53 mmHg (85-104) L 08/25/18 02:39 ABG O2 Saturation 85 % (95-98) L 08/25/18 02:39 Palliative Scale - Palliative Performance Scale How ambulatory is this patient?: Totally bed bound What is patient's level of activity and evidence of disease?: Unable to do any work, Extensive disease How much self-care assistance does patient require?: Total care How much oral intake does the patient have?: Normal or reduced What is this patient's level of consciousness?: Full or confusion Palliative Performance Score: 30 % Consult Discharge Plan - Plan Referrals: Palmira Quintana DO [Primary Care Provider] -
--- NOTE | 2018-08-28 11:15 | Discharge Summary ---
- NOTES TO OUTPATIENT PROVIDER Notes to Outpatient Provider: Continue renal replacement therapy as scheduled. Scheduled for dialysis on Wednesday. Orders not resulted at time of discharge: Pending orders 08/25/18 05:12 Culture,Sputum with Gram Stain [RM] Routine Legionella Antigen [RM] Stat Streptococcal pneumoniae urin antigen [S. Pneumoniae Antigen] [RM] Stat 08/25/18 05:41 Culture,Blood [BC] Stat 08/29/18 04:00 Vancomycin,Random AM 0400 Date of Encounter: 08/28/18 Time of Encounter: 11:11 - Discharge Diagnosis (1) HCAP (healthcare-associated pneumonia) Priority: Primary Status: Acute (2) Acute and chronic respiratory failure Priority: Secondary Status: Resolved Qualifiers: Respiratory failure complication: hypoxia Qualified Code(s): J96.21 - Acute and chronic respiratory failure with hypoxia (3) CAD (coronary artery disease) Priority: Secondary Status: Chronic Qualifiers: Coronary Disease-Associated Artery/Lesion type: pala artery [place] vs. 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; Z79.4 - snf (current) use of insulin; Z79.4 - snf (current) use of insulin; Z79.4 - extermination 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 (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 of 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 (5) Hypertension Priority: Secondary Status: Chronic Qualifiers: Hypertension type: essential hypertension Qualified Code(s): I10 - Essential (primary) hypertension (6) ESRD (end stage renal disease) on dialysis Priority: Secondary Status: Chronic (7) CHF (congestive heart failure) Priority: Secondary Status: Resolved Qualifiers: Heart failure type: diastolic Heart failure chronicity: chronic Qualified Code(s): I50.32 - Chronic diastolic (congestive) heart failure (8) Cellulitis Priority: Secondary Status: Chronic Qualifiers: Site of cellulitis: extremity Site of cellulitis of extremity: upper extremity Laterality: left Qualified Code(s): L03.114 - Cellulitis of left upper limb (9) Anemia of chronic disease Priority: Secondary Status: Chronic Hospital course: Ms. Riley is a 63 year old female history of COPD on chronic 3 L nasal cannula oxygen, end-stage renal disease on dialysis, A. fib, coronary artery disease status post CABG and stents, hypertension, hyperlipidemia, CHF, diabetes mellitus, who [facility] with acute respiratory failure. Admitted to the hospital due to acute hypoxemic respiratory failure, placed on BiPAP, acute on chronic cellulitis of the lower extremities, multifocal pneumonia, volume overload due to noncompliance with hemodialysis. CT chest abdomen and pelvis done:IMPRESSION: 1. Bilateral pleural effusion and partial atelectasis of the lower lobes. Superimposed opacities in the lower lobes which may reflect edema or pneumonia. 2. Small ascites in the abdomen and pelvis. Edema of the subcutaneous fat. Findings are nonspecific but can be seen with generalized edema. Patient treated with empiric broad-spectrum antibiotics, due to recent sputum cultures growing Escherichia coli ESBL patient was started on ertapenem 500 mg IV daily., Nephrology consulted for continuation of renal replacement therapy. Patient acute symptoms resolved, and patient is hemodynamically is stable to be discharged/transferred to [facility]. Recommended to continue ertapenem for 5 more days. And to continue renal replacement therapy as scheduled. Hospice evaluated the patient, but she refused to go home with hospice and stated that she will be compliant with her HD. - Time Spent with Patient Total time spent providing and/or coordinating discharge services: Greater than 30 minutes (45) - Discharge Medications Home Medications: Colestipol HCl [Colestid] 1 gm PO BID 06/12/15 [History] Calcium Acetate [Phos-LO] 1,334 mg PO TIDWM 09/06/16 [History] ARIPiprazole [Abilify] 10 mg PO DAILY 09/13/17 [History] Aspirin Enteric Coated [Aspirin EC] 81 mg PO DAILY 09/13/17 [History] Budesonide/Formoterol 160/4.5 [Symbicort 160/4.5] 2 puff IH BIDR 09/13/17 [History] Cholecalciferol (Vitamin D3) [Vitamin D3] 50,000 unit PO TH 09/13/17 [History] Sevelamer [Renvela] 800 mg PO DAILY 09/13/17 [History] Albuterol Neb [AccuNeb] 0.63 mg IH Q6H PRN 10/18/17 [History] amLODIPine [Norvasc] 5 mg PO DAILY 12/30/17 [History] Clopidogrel [Plavix] 75 mg PO DAILY 02/03/18 [History] Rosuvastatin Calcium [Crestor] 20 mg PO DAILY 02/27/18 [History] Renal Vitamin [Renal Caps Softgel] 1 mg PO DAILY capsule 04/17/18 [Rx] Carvedilol 12.5 mg PO BID 04/28/18 [History] Darbepoetin [Aranesp] 60 mcg SQ FR 04/28/18 [History] Insulin DETEMIR [Levemir] 34 unit SQ HS 04/28/18 [History] Insulin LISPRO [HumaLOG] 2 - 10 units SQ TIDWM 04/28/18 [History] Lactobacillus Acidophilus/Fos [Acidophilus Probiotic Tablet] 1 tab PO DAILY 04/28/18 [History] Omeprazole [PriLOSEC] 20 mg PO DAILY 04/28/18 [History] Isosorbide MONOnitrate (24 HR) [Imdur] 30 mg PO DAILY #30 tab.er.24h 07/04/18 [Rx] Benzonatate [Tessalon] 200 mg PO TID PRN 10 Days #30 capsule 07/22/18 [Rx] Gabapentin [Neurontin] 100 mg PO TID 4 Days #12 capsule 07/22/18 [Rx] Metoclopramide [Reglan] 5 mg PO QPM 08/13/18 [History] Sucralfate [Carafate] 1 gm PO QID 08/13/18 [History] Amino Acids/Protein Hydrolys [Pro-Stat Awc Liquid Packet] 30 ml PO QPM 08/25/18 [History] Collagenase Oint [Santyl] 1 appl TP DAILY 08/25/18 [History] Gentamicin Sulfate [Gentak] 1 appl LEFT EYE DAILY 08/25/18 [History] OxyCODONE/APAP 5/325 [Percocet 5/325 MG] 1 tab PO Q6H PRN 08/25/18 [History] risperiDONE [Risperdal] 0.5 mg PO HS PRN 08/25/18 [History] Allergies/Adverse Reactions: Allergy/AdvReac Type Severity Reaction Status Date / Time piperacillin [From Zosyn] Allergy Anaphylaxis Verified 07/05/18 10:03 tazobactam [From Zosyn] Allergy Anaphylaxis Verified 07/05/18 10:03 Date of admission: 08/25/18 07:00 Primary care physician: Palmira Quintana DO Consults: 08/25/18 05:16 Consult to Nephrology [CONS] Routine Consulting Provider: Kidney Olivia/MARCO/SWAPNA/MILLIE Reason for Consult: ESRD Call Completed: No 08/25/18 07:54 Consult to Wound Care [CONS] Routine Reason for Consult: multiple wounds Call Completed: No 08/25/18 09:15 Consult to Dialysis [CONS] ONCE 08/25/18 10:39 Consult to Invasive Line Access Team [CONS] Routine Reason for Consult: limited iv access Line Type: EPIV PICC line indications: Limited vascular access 08/25/18 12:14 Consult to Speech Therapy [CONS] Stat Comment: Evaluate, develop and implement POC Reason for Consult: patient in on mechanical soft nectar thick liquids at home just failed nursing bedside swallow Call Completed: No 08/25/18 14:11 Consult to Palliative Care [CONS] Stat Comment: Consulting Provider: Palliative Care Olivia Reason for Consult: patient has multiple comorbid conditions has been hospitalized almost every 2 weeks and is actively dying Call Completed: No 08/25/18 20:21 Consult to [employer] [CONS] Routine Reason for SW Consult: The need to go back to [place] 08/25/18 20:23 Consult to Occupational Therapy [CONS] Routine Comment: Evaluate, develop and implement POC Reason for Consult: patient is from [facility] declining weakness unable to get out of bed Does patient have active BEDREST order?: No Is patient medically & hemodynamically stable?: Yes Patient assessed for mobility or mobilized this visit?: No Consult to Physical Therapy [CONS] Routine Comment: Evaluate, develop and implement POC Reason for Consult: patient is from [facility] has declined he is very weak Does patient have active BEDREST order?: No Is patient medically & hemodynamically stable?: Yes Patient assessed for mobility or mobilized this visit?: Yes 08/26/18 07:00 Consult to Dialysis [CONS] ONCE 08/26/18 09:15 Consult to Dialysis [CONS] ONCE 08/27/18 07:15 Consult to Dialysis [CONS] ONCE 08/27/18 09:15 Consult to Dialysis [CONS] ONCE - Constitutional Vitals: Temp Pulse Resp BP Pulse Ox 98.2 F 78 17 128/60 99 08/28/18 07:51 08/28/18 07:51 08/28/18 07:51 08/28/18 07:51 08/28/18 07:51 Exam: Vitals: Reviewed. General: Obese, AOx4. No distress. Skin: chronic venous insuficciency b/l lower ext. multiple stage II ulceration in the right upper arm. Cardiovascular: RRR, Normal S1 & S2, no rubs, murmurs or gallops. Lungs: Mild crackles on the bases bilaterally, no wheezing or rales. Abdomen: Obese, Soft, non-tender, no rigidity. Extremities: erythema, warmth and tenderness b/l in the lower extr L>R. Clean dressing on the lower extremity bilaterally. Neurological: Normal cognition and motor skills. Psych: Affect appropriate. Rest of the physical exam is non contributory - Patient Status Disposition: Transfer LTC Condition: Fair Functional capacity at discharge: uses cane/walker - Discharge Instructions Follow Up With: Palmira Quintana DO [Primary Care Provider] - Forms: ED Satisfaction Letter - Diet and Activity Activity: as per physical therapy Diet: diabetic diet
--- NOTE | 2018-08-28 11:22 | Physician Discharge Referral ---
ExtendedCare Referral Info Transfer To: F - Diagnosis (1) HCAP (healthcare-associated pneumonia) Priority: Primary Status: Acute (2) Acute and chronic respiratory failure Priority: Secondary Status: Resolved (3) CAD (coronary artery disease) Priority: Secondary Status: Chronic (4) Diabetes mellitus Priority: Secondary Status: Chronic (5) Hypertension Priority: Secondary Status: Chronic (6) ESRD (end stage renal disease) on dialysis Priority: Secondary Status: Chronic (7) CHF (congestive heart failure) Priority: Secondary Status: Resolved (8) Cellulitis Priority: Secondary Status: Chronic (9) Anemia of chronic disease Priority: Secondary Status: Chronic Prognosis: Fair Aware of Diagnosis: Patient Aware of Prognosis: Patient - Transfer Medications Home Medications: Colestipol HCl [Colestid] 1 gm PO BID 06/12/15 [History] Calcium Acetate [Phos-LO] 1,334 mg PO TIDWM 09/06/16 [History] ARIPiprazole [Abilify] 10 mg PO DAILY 09/13/17 [History] Aspirin Enteric Coated [Aspirin EC] 81 mg PO DAILY 09/13/17 [History] Budesonide/Formoterol 160/4.5 [Symbicort 160/4.5] 2 puff IH BIDR 09/13/17 [History] Cholecalciferol (Vitamin D3) [Vitamin D3] 50,000 unit PO TH 09/13/17 [History] Sevelamer [Renvela] 800 mg PO DAILY 09/13/17 [History] Albuterol Neb [AccuNeb] 0.63 mg IH Q6H PRN 10/18/17 [History] amLODIPine [Norvasc] 5 mg PO DAILY 12/30/17 [History] Clopidogrel [Plavix] 75 mg PO DAILY 02/03/18 [History] Rosuvastatin Calcium [Crestor] 20 mg PO DAILY 02/27/18 [History] Renal Vitamin [Renal Caps Softgel] 1 mg PO DAILY capsule 04/17/18 [Rx] Carvedilol 12.5 mg PO BID 04/28/18 [History] Darbepoetin [Aranesp] 60 mcg SQ FR 04/28/18 [History] Insulin DETEMIR [Levemir] 34 unit SQ HS 04/28/18 [History] Insulin LISPRO [HumaLOG] 2 - 10 units SQ TIDWM 04/28/18 [History] Lactobacillus Acidophilus/Fos [Acidophilus Probiotic Tablet] 1 tab PO DAILY 04/28/18 [History] Omeprazole [PriLOSEC] 20 mg PO DAILY 04/28/18 [History] Isosorbide MONOnitrate (24 HR) [Imdur] 30 mg PO DAILY #30 tab.er.24h 07/04/18 [Rx] Benzonatate [Tessalon] 200 mg PO TID PRN 10 Days #30 capsule 07/22/18 [Rx] Gabapentin [Neurontin] 100 mg PO TID 4 Days #12 capsule 07/22/18 [Rx] Metoclopramide [Reglan] 5 mg PO QPM 08/13/18 [History] Sucralfate [Carafate] 1 gm PO QID 08/13/18 [History] Amino Acids/Protein Hydrolys [Pro-Stat Awc Liquid Packet] 30 ml PO QPM 08/25/18 [History] Collagenase Oint [Santyl] 1 appl TP DAILY 08/25/18 [History] Gentamicin Sulfate [Gentak] 1 appl LEFT EYE DAILY 08/25/18 [History] OxyCODONE/APAP 5/325 [Percocet 5/325 MG] 1 tab PO Q6H PRN 08/25/18 [History] risperiDONE [Risperdal] 0.5 mg PO HS PRN 08/25/18 [History] Allergies/Adverse Reactions: Allergy/AdvReac Type Severity Reaction Status Date / Time piperacillin [From Zosyn] Allergy Anaphylaxis Verified 07/05/18 10:03 tazobactam [From Zosyn] Allergy Anaphylaxis Verified 07/05/18 10:03 - Respiratory Orders Oxygen / L per min (2 litters), None Smoking Cessation: Smoking cessation has been advised. For more information, call the [place] Tobacco Quit Line at 9-022-WESM-NOW. - Advance Directives Code Status: DNR-Comfort Care - Mobility Orders Chair - Rehabiliation Orders Rehab Potential: Fair Rehab Orders: Evaluation for Physical Therapy, Evaluation for Occupational Therapy - Diet Orders Regular CERTIFICATION: I certify that the transfer of the above named patient to an Extended Care Facility is necessary for the continuing treatment of the diagnosis listed. The above information is true and accurate reflection of patient's current condition. Confidential - Redisclosure prohibited without a patient's written consent.
[2018-08-28 11:44] VITALS: BP 121/69
[2018-08-28] MEDS: Metoclopramide 10 MG/10 ML UD.LIQ PO SCH (18:33)
[2018-08-28] MEDS ORDERED: Aminoglycoside Consult 1 EACH MC ONE (21:18)
== END 2018-08-28 21:19 | DRG 177 ==
LOC: EMEROOARM 02:23 → SUATTDRO 07:00 → 2NENU 07:00
PROVIDERS: ADMIT Internal Medicine; ATTEND Internal Medicine

== ENCOUNTER 2018-09-09 01:39 | Observation (INO) ==
--- NOTE | 2018-09-09 02:56 | Emergency Department Note ---
Disposition Clinical Impression: Hypoxia Fluid overload Qualifiers: Hypervolemia type: other Qualified Code(s): E87.79 - Other fluid overload Disposition: Admitted As Inpatient Condition: Good Time of Disposition: 04:10 General Adult HPI - General Chief complaint: ED Shortness of Breath/Dyspnea Stated complaint: mele Time Seen by Provider: 09/09/18 01:43 Source: patient, EMS Mode of arrival: EMS Limitations: no limitations Nursing Notes Reviewed: Yes Vital Signs Reviewed: Yes - History of Present Illness HPI Narrative: 63-year-old female with complex past medical history including end-stage renal disease currently on dialysis and oxygen dependent with 3 L nasal cannula presenting to the emergency department chief complaint shortness of breath. Patient states for the past few days she has had increased shortness of breath. [facility]. Patient normally receives her d ialysis Wednesday, and Wednesday. Patient did receive dialysis . Has not missed any dialysis sessions. Patient states she has had increased shortness of breath but no fever, abdominal pain or chest pain. Pain Scale: 0 - Related Data Home Medications Medication Instructions Recorded Confirmed RX: Calcium Acetate [Phos-LO] 1,334 mg PO TIDWM 09/06/16 09/09/18 RX: Aspirin Enteric Coated 81 mg PO DAILY 09/13/17 09/09/18 [Aspirin EC] RX: Budesonide/Formoterol 160/4.5 2 puff IH BIDR 09/13/17 09/09/18 [Symbicort 160/4.5] RX: Cholecalciferol (Vitamin D3) 50,000 unit PO TH 09/13/17 09/09/18 [Vitamin D3] RX: Sevelamer [Renvela] 800 mg PO DAILY 09/13/17 09/09/18 RX: Albuterol Neb [AccuNeb] 0.63 mg IH Q8H PRN 10/18/17 09/09/18 RX: amLODIPine [Norvasc] 5 mg PO DAILY 12/30/17 09/09/18 RX: Clopidogrel [Plavix] 75 mg PO DAILY 02/03/18 09/09/18 RX: Carvedilol 12.5 mg PO BID 04/28/18 09/09/18 RX: Darbepoetin [Aranesp] 60 mcg SQ FR 04/28/18 09/09/18 RX: Insulin DETEMIR [Levemir] 34 unit SQ HS 04/28/18 09/09/18 RX: Insulin LISPRO [HumaLOG] 2 - 10 units SQ TIDWM 04/28/18 09/09/18 RX: Lactobacillus Acidophilus/Fos 1 tab PO DAILY 04/28/18 09/09/18 [Acidophilus Probiotic Tablet] RX: Omeprazole [PriLOSEC] 20 mg PO DAILY 04/28/18 09/09/18 RX: Amino Acids/Protein Hydrolys 30 ml PO QPM 08/25/18 09/09/18 [Pro-Stat Awc Liquid Packet] RX: Collagenase Oint [Santyl] 1 appl TP DAILY 08/25/18 09/09/18 RX: OxyCODONE/APAP 5/325 [Percocet 1 tab PO Q6H PRN 08/25/18 09/09/18 5/325 MG] RX: Gentamicin Sulfate Cream 1 appl TP DAILY 09/09/18 09/09/18 [Gentamicin Sulfate] RX: LORazepam [Ativan] 0.5 mg PO Q12H PRN 09/09/18 09/09/18 Previous Rx's Medication Instructions Recorded RX: Renal Vitamin [Renal Caps 1 mg PO DAILY capsule 04/17/18 Softgel] RX: Isosorbide MONOnitrate (24 HR) 30 mg PO DAILY #30 tab.er.24h 07/04/18 [Imdur] RX: Benzonatate [Tessalon] 200 mg PO TID PRN 10 Days #30 07/22/18 capsule RX: Gabapentin [Neurontin] 100 mg PO TID 4 Days #12 capsule 07/22/18 LORazepam [Ativan] 0.5 mg PO Q12H 15 Days #30 tablet 09/10/18 Oxycodone HCl/Acetaminophen 1 each PO Q12H 5 Days #10 tablet 09/10/18 [Percocet 10-325 mg Tablet] RX: Gabapentin [Neurontin] 100 mg PO TID 30 Days #90 capsule 09/10/18 Allergies Allergy/AdvReac Type Severity Reaction Status Date / Time piperacillin [From Zosyn] Allergy Anaphylaxis Verified 09/09/18 09:48 tazobactam [From Zosyn] Allergy Anaphylaxis Verified 09/09/18 09:48 All systems ED: reviewed and negative except as stated. Constitutional: Denies: fever, chills Eyes: Reports: as per HPI ENT ED: Reports: as per HPI Cardiovascular: Reports: dyspnea on exertion. Denies: chest pain Respiratory: Reports: dyspnea. Denies: hemoptysis, stridor Gastrointestinal: Reports: as per HPI Genitourinary: Reports: as per HPI Musculoskeletal: Reports: as per HPI Integumentary: Reports: as per HPI Neurological: Denies: numbness, paresthesias Psychiatric: Reports: as per HPI Endocrine: Reports: as per HPI Hematological/Lymphatic: Reports: as per HPI Allergic/Immunologic: Reports: as per HPI Past Medical History - Past Medical History Attestation: Yes The following information was validated with the patient. 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 Absent: scleral icterus, conjunctival injection - ENT ENT exam: mucous membranes dry - Neck Neck exam: Present: normal inspection, full ROM. Absent: tenderness, meningismus - Chest Chest inspection: Present: normal inspection. Absent: tenderness, rash - Respiratory Respiratory exam: Present: other (Coarse breath sounds throughout) - Cardiovascular Cardiovascular exam: Present: regular rate, irregular rhythm - Abdominal Exam Abdominal exam: Present: soft, Non-Tender. Absent: distention, guarding, rebound - Extremities Exam Extremities exam: Present: other (2+ pitting edema bilateral lower extremities) - Neurological Exam Neurological exam: Present: alert, oriented X3 - Psychiatric Psychiatric exam: Present: normal affect, normal mood - Skin Skin exam: Present: warm Course Course Narrative: 63-year-old female presenting for shortness of breath and hypoxia. Patient end- stage renal disease on dialysis. Has not missed any dialysis sessions. In the room she is alert and oriented 3. Oxygen saturation 88% on 4 L nasal cannula. Patient has coarse breath sounds throughout. Physical exam also shows 2+ pitting edema of the bilateral lower extremities. At this time concern for fluid overload. We will obtain basic laboratory analysis, chest x-ray. Disposition most likely admission the pending results. Patient agrees with this plan. - Reevaluation(s) Reevaluation #1: Patient's laboratory analysis unchanged from baseline. Chest x-ray concerning for fluid overload. Wound the emergency department patient became more somnolent therefore ABG was completed that showed elevated CO2. Decision to place patient on BiPAP. At this time will plan to admit the patient for hypoxia and fluid overload. Patient remains somnolent but arousable in the room. Hemodynamically stable. I spoke with the hospitalist it consulting director Dr. Man who agrees to accept the patient at this time. Vital Signs Temperature 97.7 F 09/09/18 01:51 Pulse Rate 85 09/09/18 01:51 Respiratory Rate 20 09/09/18 01:51 Blood Pressure 116/57 09/09/18 01:51 O2 Sat by Pulse Oximetry 97 09/09/18 01:51 Temperature 98.0 F 09/10/18 15:47 Pulse Rate 84 09/10/18 15:47 Respiratory Rate 16 09/10/18 16:02 Blood Pressure 119/52 09/10/18 15:47 O2 Sat by Pulse Oximetry 99 09/10/18 16:02 Oxygen Delivery Oxygen Delivery Nasal Cannula Medical Decision Making - Lab Data Result diagrams: 09/10/18 06:24 09/10/18 06:24 Lab Results 09/09/18 09/09/18 09/09/18 Range/Units 03:16 03:16 03:16 WBC 7.9 (4.3-11.1) K/mcL RBC 4.16 (3.82-4.97) M/mcL Hgb 9.2 L (11.5-15.4) g/dL Hct 31.5 L (35.3-44.9) % MCV 75.7 L (83.0-100.0) fL MCH 22.1 L (28.0-33.3) pg MCHC 29.2 L (31.6-35.5) g/dL RDW 21.0 H (11.5-14.5) % Plt Count 132 L (140-400) K/mcL MPV 11.6 (9.4-12.4) fL Immature Gran % 1.1 (0-4) % Seg Neutrophils % 74.6 % Lymphocytes % 13.9 % Monocytes % 8.5 % Eosinophils % 1.4 % Basophils % 0.5 % Neutrophils # 5.9 (1.6-8.9) K/mcL Lymphocytes # 1.1 (0.6-4.6) K/mcL Monocytes # 0.7 (0.0-1.3) K/mcL Eosinophils # 0.1 (0.0-0.6) K/mcL Basophils # 0.0 (0.0-0.2) K/mcL Immature Plt Fraction 4.8 (1.1-6.1) % Polychromasia 1+ A (Not Present) Anisocytosis 1+ A (Not Present) Target Cells 1+ A (Not Present) Sample Site ABG pH (7.32-7.45) pH Units ABG pCO2 (35-45) mmHg ABG pO2 (85-104) mmHg ABG HCO3 (21-27) mEq/L ABG Total CO2 (20-26) mEq/L ABG O2 Saturation (95-98) % ABG Base Excess (-2 to 3) mEq/L O2 Delivery Device Inspired O2 (1-15=lpm [id number]=%) Sodium 135 L (136-145) mEq/L Potassium 4.1 (3.5-5.1) mEq/L Chloride 99 (98-107) mEq/L Carbon Dioxide 29 (23-29) mEq/L BUN 30 H (8-23) mg/dL Creatinine 3.50 H (0.60-1.20) mg/dL Est GFR ( Amer) 16 L (> 60) Est GFR (Non-Af Amer) 13 L (> 60) BUN/Creatinine Ratio 9 (6-26) Glucose 109 H (70-105) mg/dL Calculated Osmolality 287 (280-300) Calcium 8.9 (8.6-10.3) mg/dL Troponin I < 0.03 (< 0.04) ng/mL B-Natriuretic Peptide 1025 H (Less than 100) pg/mL 09/09/18 Range/Units 03:45 WBC (4.3-11.1) K/mcL RBC (3.82-4.97) M/mcL Hgb (11.5-15.4) g/dL Hct (35.3-44.9) % MCV (83.0-100.0) fL MCH (28.0-33.3) pg MCHC (31.6-35.5) g/dL RDW (11.5-14.5) % Plt Count (140-400) K/mcL MPV (9.4-12.4) fL Immature Gran % (0-4) % Seg Neutrophils % % Lymphocytes % % Monocytes % % Eosinophils % % Basophils % % Neutrophils # (1.6-8.9) K/mcL Lymphocytes # (0.6-4.6) K/mcL Monocytes # (0.0-1.3) K/mcL Eosinophils # (0.0-0.6) K/mcL Basophils # (0.0-0.2) K/mcL Immature Plt Fraction (1.1-6.1) % Polychromasia (Not Present) Anisocytosis (Not Present) Target Cells (Not Present) Sample Site R Radial ABG pH 7.34 (7.32-7.45) pH Units ABG pCO2 59 H (35-45) mmHg ABG pO2 57 L (85-104) mmHg ABG HCO3 32 H (21-27) mEq/L ABG Total CO2 33 H (20-26) mEq/L ABG O2 Saturation 86 L (95-98) % ABG Base Excess 4 H (-2 to 3) mEq/L O2 Delivery Device Cannula Inspired O2 32.0 (1-15=lpm dl06-317=%) Sodium (136-145) mEq/L Potassium (3.5-5.1) mEq/L Chloride (98-107) mEq/L Carbon Dioxide (23-29) mEq/L BUN (8-23) mg/dL Creatinine (0.60-1.20) mg/dL Est GFR ( Amer) (> 60) Est GFR (Non-Af Amer) (> 60) BUN/Creatinine Ratio (6-26) Glucose (70-105) mg/dL Calculated Osmolality (280-300) Calcium (8.6-10.3) mg/dL Troponin I (< 0.04) ng/mL B-Natriuretic Peptide (Less than 100) pg/mL - EKG Data EKG #1 EKG attestation: Yes I reviewed and interpreted this EKG. EKG results narrative: Atrial fibrillation. 85 bpm. QRS 89, QTC 470. No sign of acute ST segment jefferson vation or ischemia. Critical Care Time Critical Care Time: Yes Total Critical Care Time: 35 Attestation: The high probability of a clinically significant, sudden or life threatening deterioration of the respiratory system(s) required my full and direct attention, intervention and personal management. The aggregate critical care time was 35 minutes. This time is in addition to time spent performing reported procedures but includes the following: x Data Review and interpretation x Patient assessment and monitoring of vital signs x Documentation x Medication orders and management Attestation Statement - Attestation Attestation: I, Lenny Li, examined this patient and my medical decision-making was reviewed with the RADAR ENGINEERING TEACHER/PA/Advanced Practice Nurse/Resident Physician. I agree with the documented findings, disposition and treatment plan as described except to the extent set forth below. 63-year-old female presents emergency Department with concerns of difficulty breathing. Patient has a long history of renal failure and is on dialysis. She often presents emergency Department with difficulty in breathing secondary co ngestive heart failure. During my evaluation the patient had difficulty giving history regarding her case and presentation. Patient chronically wears 3 L of O2 at home however she is requiring increased oxygen in the emergency department. ABG shows elevated PCO2. Patient placed on BiPAP secondary to elevated PCO2, somnolence, hypoxia at her baseline oxygen via nasal cannula. Patient likely has acute congestive heart failure. She is tolerating BiPAP well emergency department. Patient will be admitted to the hospitalist for further care and evaluation.
[2018-09-09 03:27] LABS: Basophils % 0.5 %
[2018-09-09 03:29] LABS: Eosinophils # 0.1 K/mcL (0.0-0.6); Eosinophils % 1.4 %; Hematocrit 31.5 % (35.3-44.9); Hemoglobin 9.2 g/dL (11.5-15.4); Immature Granulocytes % 1.1 % (0-4); Immature Platelets 4.8 % (1.1-6.1); Lymphocytes # 1.1 K/mcL (0.6-4.6); Lymphocytes % 13.9 %; Mean Corpuscular HGB Conc 29.2 g/dL (31.6-35.5); Mean Corpuscular Hemoglobin 22.1 pg (28.0-33.3); Mean Corpuscular Volume 75.7 fL (83.0-100.0); Mean Platelet Volume 11.6 fL (9.4-12.4); Monocytes # 0.7 K/mcL (0.0-1.3); Monocytes % 8.5 %; Neutrophils # 5.9 K/mcL (1.6-8.9); Platelet Count 132 K/mcL (140-400); Red Blood Count 4.16 M/mcL (3.82-4.97); Segmented Neutrophils % 74.6 %
[2018-09-09 03:46] LABS: Anisocytosis 1+ (Not Present); Polychromasia 1+ (Not Present); Target Cells 1+ (Not Present)
[2018-09-09 03:49] LABS: BUN/Creatinine Ratio 9 (6-26); Blood Urea Nitrogen 30 mg/dL (8-23); Calcium 8.9 mg/dL (8.6-10.3); Carbon Dioxide 29 mEq/L (23-29); Chloride 99 mEq/L (98-107); Glucose 109 mg/dL (70-105); Osmolality,Calculated 287 (280-300); Potassium 4.1 mEq/L (3.5-5.1); Sodium 135 mEq/L (136-145); Troponin I < 0.03 ng/mL (< 0.04); eGFR For Non-African Americans 13 (> 60)
[2018-09-09 03:52] LABS: ABG Base Excess 4 mEq/L (-2 to 3); ABG HCO3 32 mEq/L (21-27); ABG Oxygen Saturation 86 % (95-98); ABG PCO2 59 mmHg (35-45); ABG PH 7.34 pH Units (7.32-7.45); ABG PO2 57 mmHg (85-104); ABG TCO2 33 mEq/L (20-26)
[2018-09-09] MEDS ORDERED: Naloxone 0.4 MG/ML INJ IVP PRN (06:16)
[2018-09-09] MEDS ORDERED: Dextrose Gel 15 GM/37.5 ML TUBE PO PRN ×2 (06:19)
[2018-09-09] MEDS ORDERED: *HR* Dextrose 50 % in Water (Syg) 50 ML SYRINGE IVP PRN (06:19)
[2018-09-09] MEDS ORDERED: D5% in Water 1,000 ML IVC PRN (06:19)
--- NOTE | 2018-09-09 06:37 | Internal Med History&Physical ---
Date of Encounter: 09/09/18 Time of Encounter: 06:00 Internal Medicine - H&P: HPI Chief complaint: Shortness of breath Admitted From: Emergency Dept Plans for Post Hospital Care: Home History of present illness: Ms. Riley is a 63 year old female Patient presented to the emergency room for shortness of breath and feeling like she could not breathe. She states her symptoms started the day previous. She is from a [facility], and has had multiple admissions for this in the past most recently about 2 weeks ago. At that time it was thought that she had healthcare associated pneumonia and she was discharged on IV antibiotics for which she has now completed the full course. She is on baseline oxygen of 3 L nasal cannula, however this was not adequate enough to relieve her symptoms. She has a history of end-stage renal disease and gets dialysis Tuesdays, and Saturdays. In the emergency room patient's cbc was within normal limits though her hemoglobin was 9.2 this is about normal for her. BMP was also within normal limits based on her previous admissions. Her BNP was elevated above her baseli ne at 1025. At her last admission it was 852. However due to her end-stage renal disease is unclear how relevant this is. Patient's ABG showed a pH of 7.34, PCO2 of 59 and PO2 of 57. She was hypoxic at 4 L nasal cannula and a saturation of 88%. The emergency room started her on BiPAP which she later refused. She was admitted to the medical for further management. Upon my evaluation patient states that she is feeling a little better. She denies cough but has had nausea and vomiting for the last few days. She states that she has burning chest pain which has been going on for several months. She has received breathing treatments at the prison which seemed to help with her breathing. When I asked her if we needed to use BiPAP with her she stated that she would be okay with it. I also discussed with her her CODE STATUS, and she states she would not want to be resuscitated nor would she want a breathing tube placed if it was required. Past Med Surg Social Fam HX - Past Medical History Medical history: atrial fibrillation, CHF, COPD, coronary artery disease, diabetes, dialysis, GI bleed, hyperlipidemia, hypertension, myocardial infarction, peripheral artery disease, renal disease Additional medical history: AV fistula for dialysis ++ Psychiatric history: anxiety, depression, schizophrenia, previous psychiatric hospitalization - Past Surgical History Surgical History: angioplasty/stent, appendectomy, cholecystectomy, coronary bypass (CABG), hysterectomy, knee replacement, other, IVC filter Additional surgical history: left arm fistulogram with covered stent placement left basilic vein 2016. kidney stones 1996. double Bypass 1998. stents x5 unsure date. right wrist 2017 - Social History Smoking Status: Former smoker Smokeless Tobacco Status: No Alcohol use: none Drug use: none - Family History Father Family Member Ethnicity: Non- Living Status: Hx Family Cardiac Disorders: Yes Hx Family Respiratory Disorders: Yes Hx Family Cancer: Yes (Polycythemia) Hx Family Endocrine Disorder: Yes (DM) Mother Family Member Ethnicity: Non- Living Status: Still Living Hx Family Cardiac Disorders: Yes Hx Family Respiratory Disorders: Yes (asthma, COPD) Brother Adopted: No Family Member Ethnicity: Non- Living Status: Still Living Hx Family Cardiac Disorders: No Hx Family Respiratory Disorders: No Hx Family Cancer: No Hx Family GI Disorders: No Hx Family Endocrine Disorder: No Hx Family Neuromuscular Disorders: No Hx Family Neurologic Disorders: No Hx Family HEENT Disorders: No Hx Family Autoimmune Disorders: No Sister Adopted: No Family Member Ethnicity: Non- Living Status: Still Living Hx Family Cardiac Disorders: Yes Hx Family Respiratory Disorders: No Hx Family Cancer: No Hx Family GI Disorders: No Hx Family Endocrine Disorder: Yes Hx Family Neuromuscular Disorders: No Hx Family Neurologic Disorders: No Hx Family HEENT Disorders: No Hx Family Autoimmune Disorders: No Internal Medicine - H&P: Meds Colestipol HCl [Colestid] 1 gm PO BID 06/12/15 [History] Calcium Acetate [Phos-LO] 1,334 mg PO TIDWM 09/06/16 [History] ARIPiprazole [Abilify] 10 mg PO DAILY 09/13/17 [History] Aspirin Enteric Coated [Aspirin EC] 81 mg PO DAILY 09/13/17 [History] Budesonide/Formoterol 160/4.5 [Symbicort 160/4.5] 2 puff IH BIDR 09/13/17 [History] Cholecalciferol (Vitamin D3) [Vitamin D3] 50,000 unit PO TH 09/13/17 [History] Sevelamer [Renvela] 800 mg PO DAILY 09/13/17 [History] Albuterol Neb [AccuNeb] 0.63 mg IH Q6H PRN 10/18/17 [History] amLODIPine [Norvasc] 5 mg PO DAILY 12/30/17 [History] Clopidogrel [Plavix] 75 mg PO DAILY 02/03/18 [History] Rosuvastatin Calcium [Crestor] 20 mg PO DAILY 02/27/18 [History] Renal Vitamin [Renal Caps Softgel] 1 mg PO DAILY capsule 04/17/18 [Rx] Carvedilol 12.5 mg PO BID 04/28/18 [History] Darbepoetin [Aranesp] 60 mcg SQ FR 04/28/18 [History] Insulin DETEMIR [Levemir] 34 unit SQ HS 04/28/18 [History] Insulin LISPRO [HumaLOG] 2 - 10 units SQ TIDWM 04/28/18 [History] Lactobacillus Acidophilus/Fos [Acidophilus Probiotic Tablet] 1 tab PO DAILY 04/10 06/28 [History] Omeprazole [PriLOSEC] 20 mg PO DAILY 04/28/18 [History] Isosorbide MONOnitrate (24 HR) [Imdur] 30 mg PO DAILY #30 tab.er.24h 07/04/18 [Rx] Benzonatate [Tessalon] 200 mg PO TID PRN 10 Days #30 capsule 07/22/18 [Rx] Gabapentin [Neurontin] 100 mg PO TID 4 Days #12 capsule 07/22/18 [Rx] Metoclopramide [Reglan] 5 mg PO QPM 08/13/18 [History] Sucralfate [Carafate] 1 gm PO QID 08/13/18 [History] Amino Acids/Protein Hydrolys [Pro-Stat Awc Liquid Packet] 30 ml PO QPM 08/25/18 [History] Collagenase Oint [Santyl] 1 appl TP DAILY 08/25/18 [History] Gentamicin Sulfate [Gentak] 1 appl LEFT EYE DAILY 08/25/18 [History] OxyCODONE/APAP 5/325 [Percocet 5/325 MG] 1 tab PO Q6H PRN 08/25/18 [History] risperiDONE [Risperdal] 0.5 mg PO HS PRN 08/25/18 [History] Allergy/AdvReac Type Severity Reaction Status Date / Time piperacillin [From Zosyn] Allergy Anaphylaxis Verified 07/05/18 10:03 tazobactam [From Zosyn] Allergy Anaphylaxis Verified 07/05/18 10:03 All Systems PM: A 10-system review of systems was performed and is negative for pertinent findings except as documented above in the HPI. - Constitutional Vitals: Temp Pulse Resp BP Pulse Ox 97.7 F 81 14 115/50 94 09/09/18 01:51 09/09/18 05:07 09/09/18 05:07 09/09/18 05:07 09/09/18 05:07 General appearance: Present: cooperative, A&O X 3, pleasant, no acute distress, obese, answers questions appropriately Exam: As above - Head Head exam: Present: normal inspection - Eye Eye exam: Present: EOMI, normal appearance - Respiratory Respiratory exam: Present: rales, rhonchi. Absent: chest wall tenderness, decreased breath sounds, CTAB, respiratory distress, wheezes - Cardiovascular Cardiovascular exam: Present: RRR. Absent: diastolic murmur, systolic murmur - GI/Abdominal GI/Abdominal exam: Present: normal bowel sounds, soft. Absent: tenderness - Extremities Exam Extremities exam: Present: pedal edema, warm, radial pulses palpable and symmetrical. Absent: tenderness Additional comments: Plus pitting edema bilaterally Left foot demonstrated two ulcers 1 stage II and stage III to the dorsal aspect of the foot. The left leg also had a skin abrasion just below the knee - Neurological Exam Neurological exam: Present: no focal deficits, strengths equal and symetr throughout. Absent: motor sensory deficit, facial droop, speech deficit - Skin Skin exam: Present: dry, normal color, warm Additional comments: Skin skin of the lower extremities Ulcerations and wounds as described above Internal Med - H&P Results - Labs CBC & Chem 7: 09/09/18 03:16 09/09/18 03:16 Labs: Short CBC 09/09/18 Range/Units 03:16 WBC 7.9 (4.3-11.1) K/mcL Hgb 9.2 L (11.5-15.4) g/dL Hct 31.5 L (35.3-44.9) % Plt Count 132 L (140-400) K/mcL Neutrophils # 5.9 (1.6-8.9) K/mcL BMP 09/09/18 03:16 Sodium 135 L Potassium 4.1 Chloride 99 Carbon Dioxide 29 BUN 30 H Creatinine 3.50 H Glucose 109 H Calcium 8.9 Cardiac Enzymes 09/09/18 Range/Units 03:16 Troponin I < 0.03 (< 0.04) ng/mL - ABG Interpretation ABG results: 09/09/18 03:45 ABG pH 7.34 ABG pCO2 59 H ABG pO2 57 L ABG HCO3 32 H ABG Total CO2 33 H ABG O2 Saturation 86 L ABG Base Excess 4 H - Impressions ITS Impressions Chest X-Ray 09/09/18 01:45 IMPRESSION: Constellation of findings suggests CHF/pulmonary edema. Hazy opacification of the lateral mid lung field along the fissure may relate to superimposed pneumonia or other infectious/inflammatory process. D/ / Claudia Espinoza MD / Claudia Espinoza MD Interpreting Provider: Claudia Espinoza MD - Assessment and plan (1) Fluid overload Current Visit: No Status: Acute Assessment and plan: 2+ pitting edema with crackles and rhonchi on lung exam. Patient has had this in the past as well. She has required additional dialysis for management. Patient has poor urine output secondary to end-stage renal disease. Consult nephrology to arrange dialysis Qualifiers: Hypervolemia type: other Qualified Code(s): E87.79 - Other fluid overload (2) Acute on chronic respiratory failure with hypoxia Current Visit: No Status: Resolved Assessment and plan: Continue to fluid overload, patient initially refused BiPAP but later agreed if required. Currently oxygen saturation in the mid 90s on 4 L of oxygen nasal cannula. Elevated PCO2 on ABG in the emergency room as well. Patient also had recent hospitalization for pneumonia, but she has completed IV antibiotics at this point. She does not meet sepsis or SIRS criteria. Continuous pulse ox Continue to monitor (3) Hospitalization within last 30 days Current Visit: No Status: Acute Assessment and plan: Patient has had over 20 hospitalizations this year. Most recently on August 25. (4) ESRD (end stage renal disease) on dialysis Current Visit: No Status: Chronic Assessment and plan: Consult nephrology to arrange dialysis (5) Wounds, multiple Current Visit: No Status: Chronic Assessment and plan: Consult wound care for diabetic foot ulcers, which appear to be chronic (6) Atrial fibrillation Current Visit: No Status: Chronic Assessment and plan: Continue home meds Qualifiers: Atrial fibrillation type: chronic Qualified Code(s): I48.2 - Chronic atrial fibrillation (7) CHF (congestive heart failure) Current Visit: No Status: Resolved Assessment and plan: Patient has shortness of breath, chest x-ray showed evidence of CHF/pulmonary edema. BNP elevated however patient has end-stage renal disease. Patient does not make urine, but is on chronic dialysis. Consult nephrology in the morning for possible dialysis for fluid overload Qualifiers: Heart failure type: diastolic Heart failure chronicity: chronic Qualified Code(s): I50.32 - Chronic diastolic (congestive) heart failure (8) DM2 (diabetes mellitus, type 2) Current Visit: No Status: Chronic Assessment and plan: Patient takes insulin at home, blood sugars 109 in the emergency room. Continue to monitor her blood sugars with meals and at night Low-dose sliding scale insulin as needed Qualifiers: Diabetes mellitus manager intermediate insulin use: with manager intermediate use Diabetes mellitus complication status: with kidney complications Diabetes mellitus complication detail: with chronic kidney disease Chronic kidney disease stage: on chronic dialysis Qualified Code(s): E11.22 - Type 2 diabetes mellitus with diabetic chronic kidney disease; N18.6 - End stage renal disease; Z99.2 - Dependence on renal dialysis; Z99.2 - Dependence on renal dialysis; Z99.2 - Dependence on renal dialysis; N18.6 - End stage renal disease; N18.6 - End stage renal disease; N18.6 - End stage renal disease; Z79.4 - [facility] (current) use of insulin; 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
[2018-09-09] MEDS ORDERED: 0.9 % Sodium Chloride 250 ML IVC PRN (07:36)
[2018-09-09] MEDS ORDERED: 0.9 % Sodium Chloride 1,000 ML PRIME SCH (07:45)
[2018-09-09] MEDS ORDERED: 0.9 % Sodium Chloride 1,000 ML ONE (07:57)
[2018-09-09] MEDS: Insulin LISPRO 300 UNITS/3 ML VIAL SQ SCH ×3 (08:44→17:08)
--- NOTE | 2018-09-09 14:24 | Nephrology Consult Note ---
<Naren Stern - Last Filed: 09/09/18 14:18> Date of Encounter: 09/09/18 Time of Encounter: 09:25 Assessment and Plan (1) ESRD (end stage renal disease) on dialysis Status: Chronic - Patient is a chronic TTS hemodialysis patient - Reports compliance with treatments - Frequent hospital admission presentation with complaint of fluid overload - Likely contribution of congestive heart failure diagnosis - Clinically does appear fluid overloaded on exam - Tolerating 4 L of oxygen via nasal cannula upon my interview Plan - We will plan for additional dialysis today and additionally as needed - Renally dose medications - Renal vitamins (2) Fluid overload Status: Acute Likely secondary to CHF in combination with ESRD Plan for dialysis as above Qualifiers: Hypervolemia type: other Qualified Code(s): E87.79 - Other fluid overload (3) HTN (hypertension) Status: Chronic - Titrate antihypertensives as necessary Qualifiers: Hypertension type: essential hypertension Qualified Code(s): I10 - Essential (primary) hypertension History of Present Illness - Reason for Consult Consult date: 09/09/18 end stage renal disease - Chief Complaint SOB, fluid overload - History of Present Illness Ms. Riley presented to the emergency room on 09/09/18 with complaint of dyspnea. Nephrology was consulted on same day for concerns of fluid overload as well as end-stage renal disease on dialysis. Mr. Riley is a past medical history of atrial fibrillation, CHF, COPD, CAD, diabetes, GI bleeds, hyperlipidemia, hypertension, PAD, ESRD on TTS dialysis. She is very familiar with the nephrology service and has required multiple admissions this year for similar complaints. She states she has been compliant with her dialysis sessions. She is also recently admitted for healthcare associated pneumonia and was discharged after completing a full course of IV antibiotics. Patient states that the she feels fluid overloaded which is consistent with previous admissions. She admits to lower extremity swelling as well as shortness of breath, orthopnea. She is oxygen dependent at home on 3 L. On presentation to the emergency room, vital signs are significant for respiratory rate of 20 and she was tolerating 97% oxygen on 4 L via nasal cannula. Laboratory results were significant for a baseline anemia, mild respiratory acidosis with CO2 of 59, sodium 135, BUN/creatinine/creatinine of 30/3.50, negative troponin and BNP of 1025. Chest x-ray was obtained and showed consolation of findings suggestive of CHF/pulmonary edema with hazy opacificat ion of the lateral mid lung field which may be suggestive of superimposed pneumonia or other inflammatory process. Today she was evaluated in dialysis and stated that she continues to feel short of breath without any changes since admission. She is currently just started her hemodialysis regimen. She does admit to being compliant with her dialysis but has not been following a diet. She denies any symptoms of chest pain but does admit to chronic lower extremity edema which may be slightly worse from baseline. She denies any symptoms of coughing but has had nausea and vomiting for the past couple days with no recent episodes this morning. Past Med Surg Social Fam HX - Past Medical History Medical history: atrial fibrillation, CHF, COPD, coronary artery disease, diabetes, dialysis, GI bleed, hyperlipidemia, hypertension, myocardial infarction, peripheral artery disease, renal disease Additional medical history: AV fistula for dialysis ++ Psychiatric history: anxiety, depression, schizophrenia, previous psychiatric hospitalization - Past Surgical History Surgical History: angioplasty/stent, appendectomy, cholecystectomy, coronary bypass (CABG), hysterectomy, knee replacement, other, IVC filter Additional surgical history: left arm fistulogram with covered stent placement left basilic vein 2016. kidney stones 1996. double Bypass 1998. stents x5 unsure date. right wrist 2017 - Social History Smoking Status: Former smoker Smokeless Tobacco Status: No Alcohol use: none Drug use: none - Family History Brother Adopted: No Family Member Ethnicity: Non- Living Status: Still Living Hx Family Cardiac Disorders: No Hx Family Respiratory Disorders: No Hx Family Cancer: No Hx Family GI Disorders: No Hx Family Endocrine Disorder: No Hx Family Neuromuscular Disorders: No Hx Family Neurologic Disorders: No Hx Family HEENT Disorders: No Hx Family Autoimmune Disorders: No Father Family Member Ethnicity: Non- Living Status: Hx Family Cardiac Disorders: Yes Hx Family Respiratory Disorders: Yes Hx Family Cancer: Yes (Polycythemia) Hx Family Endocrine Disorder: Yes (DM) Mother Family Member Ethnicity: Non- Living Status: Still Living Hx Family Cardiac Disorders: Yes Hx Family Respiratory Disorders: Yes (asthma, COPD) Sister Adopted: No Family Member Ethnicity: Non- Living Status: Still Living Hx Family Cardiac Disorders: Yes Hx Family Respiratory Disorders: No Hx Family Cancer: No Hx Family GI Disorders: No Hx Family Endocrine Disorder: Yes Hx Family Neuromuscular Disorders: No Hx Family Neurologic Disorders: No Hx Family HEENT Disorders: No Hx Family Autoimmune Disorders: No Medications and Allergies RX: Calcium Acetate [Phos-LO] 1,334 mg PO TIDWM 09/06/16 [History] RX: Aspirin Enteric Coated [Aspirin EC] 81 mg PO DAILY 09/13/17 [History] RX: Budesonide/Formoterol 160/4.5 [Symbicort 160/4.5] 2 puff IH BIDR 09/13/17 [History] RX: Cholecalciferol (Vitamin D3) [Vitamin D3] 50,000 unit PO TH 09/13/17 [History] RX: Sevelamer [Renvela] 800 mg PO DAILY 09/13/17 [History] RX: Albuterol Neb [AccuNeb] 0.63 mg IH Q8H PRN 10/18/17 [History] RX: amLODIPine [Norvasc] 5 mg PO DAILY 12/30/17 [History] RX: Clopidogrel [Plavix] 75 mg PO DAILY 02/03/18 [History] RX: Renal Vitamin [Renal Caps Softgel] 1 mg PO DAILY capsule 04/17/18 [Rx] RX: Carvedilol 12.5 mg PO BID 04/28/18 [History] RX: Darbepoetin [Aranesp] 60 mcg SQ FR 04/28/18 [History] RX: Insulin DETEMIR [Levemir] 34 unit SQ HS 04/28/18 [History] RX: Insulin LISPRO [HumaLOG] 2 - 10 units SQ TIDWM 04/28/18 [History] RX: Lactobacillus Acidophilus/Fos [Acidophilus Probiotic Tablet] 1 tab PO DAILY 04/28/18 [History] RX: Omeprazole [PriLOSEC] 20 mg PO DAILY 04/28/18 [History] RX: Isosorbide MONOnitrate (24 HR) [Imdur] 30 mg PO DAILY #30 tab.er.24h 07/04/18 [Rx] RX: Benzonatate [Tessalon] 200 mg PO TID PRN 10 Days #30 capsule 07/22/18 [Rx] RX: Gabapentin [Neurontin] 100 mg PO TID 4 Days #12 capsule 07/22/18 [Rx] RX: Amino Acids/Protein Hydrolys [Pro-Stat Awc Liquid Packet] 30 ml PO QPM 08/25/18 [History] RX: Collagenase Oint [Santyl] 1 appl TP DAILY 08/25/18 [History] RX: OxyCODONE/APAP 5/325 [Percocet 5/325 MG] 1 tab PO Q6H PRN 08/25/18 [History] RX: Gentamicin Sulfate Cream [Gentamicin Sulfate] 1 appl TP DAILY 09/09/18 [History] RX: LORazepam [Ativan] 0.5 mg PO Q12H PRN 09/09/18 [History] LORazepam [Ativan] 0.5 mg PO Q12H 15 Days #30 tablet 09/10/18 [Rx] Oxycodone HCl/Acetaminophen [Percocet 10-325 mg Tablet] 1 each PO Q12H 5 Days #10 tablet 09/10/18 [Rx] RX: Gabapentin [Neurontin] 100 mg PO TID 30 Days #90 capsule 09/10/18 [Rx] Allergy/AdvReac Type Severity Reaction Status Date / Time piperacillin [From Zosyn] Allergy Anaphylaxis Verified 09/09/18 09:48 tazobactam [From Zosyn] Allergy Anaphylaxis Verified 09/09/18 09:48 Review of Systems All Systems review (narrative): - Constitutional: Denies fevers, chills, weight loss, generalized fatigue - CVS: Admits to orthopnea, edema Denies chest pain, palpitations - Pulm: Admits to shortness of breath. Denies cough, sputum, hematemesis, wheezing - GI: Denies abdominal pain, anorexia, nausea, vomiting, diarrhea, constipation, melena - : Does not make much urine - Skin: Denies rashes, ulcers, color changes, - Neuro: Denies SANCHEZ, paresthesias, focal deficits Exam - Vital Signs Vital signs: Initial Vital Signs Temp Pulse Resp BP Pulse Ox 97.7 F 85 20 116/57 97 09/09/18 01:51 09/09/18 01:51 09/09/18 01:51 09/09/18 01:51 09/09/18 01:51 Vital Signs - Last 8 Hours Temp Pulse Resp BP Pulse Ox 09/09/18 13:30 97.6 F 18 138/64 09/09/18 12:40 131/62 09/09/18 12:25 137/55 09/09/18 12:10 134/68 09/09/18 11:55 146/89 09/09/18 11:40 125/59 09/09/18 11:25 122/57 09/09/18 11:10 126/68 09/09/18 10:55 123/54 09/09/18 10:40 138/65 09/09/18 10:25 138/54 09/09/18 10:10 130/65 09/09/18 09:55 142/61 09/09/18 09:40 126/66 09/09/18 09:25 123/56 09/09/18 09:10 97.5 F L 20 115/57 09/09/18 06:38 97.7 F 87 16 136/77 96 09/09/18 06:37 97.3 F L 83 16 124/60 91 Intake and Output 09/08/18 09/09/18 09/09/18 23:59 07:59 15:59 Intake Total 0 / 0 600 / 600 Output Total 0 / 0 5600 / 5600 Balance 0 / 0 -5000 / -5000 Intake: Oral 0 / 0 0 / 0 Intake, Rinseback and Flushes 600 / 600 Output: Urine 0 / 0 0 / 0 Total Dialysis (HD) Output 5600 / 5600 Other: Weight 120.7 kg Blood Glucose* 128 134 Hemodialysis Net Fluid Removed 5000 (mL) Patient Weight 09/09/18 23:59 Weight 120.7 kg - General Appearance Exam: Gen.: Vitals noted. No acute distress. AAOx3, resting comfortably in bed HEENT: PERRL/EOMI, oropharynx clear, Normocephalic, atraumatic, MMM Cardiac: Irregularly irregular rhythm, no murmur, +S1/S2 Pulmonary: Coarse Rales diffusely with possible superimposed expiratory wheeze. equal chest expansion Abdomen: soft, mildly tender to palpation of epigastric region, BS noted, no guarding, no rebound. MSK: ROM not assessed, no joint swelling noted Extremities: 2+ BLE edema with extension to mid thigh, nontender calf, no cyanosis or clubbing Neuro: A&Ox3, moves all extremities, no focal deficits Psych: Appropriate mood and behavior Results - Lab Results 09/09/18 03:16 09/09/18 03:16 Most recent lab results ABG pH 7.34 pH Units (7.32-7.45) 09/09/18 03:45 ABG pCO2 59 mmHg (35-45) H 09/09/18 03:45 ABG pO2 57 mmHg (85-104) L 09/09/18 03:45 ABG HCO3 32 mEq/L (21-27) H 09/09/18 03:45 ABG O2 Saturation 86 % (95-98) L 09/09/18 03:45 Calcium 8.9 mg/dL (8.6-10.3) 09/09/18 03:16 Consult Discharge Plan - Plan Referrals: NONE,PCP [Primary Care Provider] - Prescriptions: RX: Gabapentin [Neurontin] 100 mg PO TID 30 Days #90 capsule LORazepam [Ativan] 0.5 mg PO Q12H 15 Days #30 tablet Oxycodone HCl/Acetaminophen [Percocet 10-325 mg Tablet] 1 each PO Q12H 5 Days #10 tablet <Luma Mendez - Last Filed: 09/14/18 14:01> Date of Encounter: 09/09/18 Exam - Vital Signs Vital signs: Initial Vital Signs Temp Pulse Resp BP Pulse Ox 97.7 F 85 20 116/57 97 09/09/18 01:51 09/09/18 01:51 09/09/18 01:51 09/09/18 01:51 09/09/18 01:51 Results - Lab Results 09/10/18 06:24 09/10/18 06:24 Most recent lab results ABG pH 7.34 pH Units (7.32-7.45) 09/09/18 03:45 ABG pCO2 59 mmHg (35-45) H 09/09/18 03:45 ABG pO2 57 mmHg (85-104) L 09/09/18 03:45 ABG HCO3 32 mEq/L (21-27) H 09/09/18 03:45 ABG O2 Saturation 86 % (95-98) L 09/09/18 03:45 Calcium 8.9 mg/dL (8.6-10.3) 09/10/18 06:24 Phosphorus 4.3 mg/dL (2.7-4.5) 09/10/18 06:24 Magnesium 2.0 mg/dL (1.6-2.6) 09/10/18 06:24 - Attending Attestation I examined this patient and my medical decision-making was reviewed with the Resident Physician. I agree with the documented findings, disposition and treatment plan as described except to the extent set forth below. Pt seen and examined on HD and in brief; 63 y o female with PMH of DM, HTN, CHF, ESRD on HD et.al admitted after recent discharge with SOB and fluid overload. She has had frequent hospitalizations for similar symptoms. She is a poor historian and does not seem to have insight to her troubles. Exam shows chronic ill appearing female NAD with decerased BS bases bilat and LE edema. Will continue HD with UF goal of 4-5kg as tolerated. Flluid restriction advised. Plan for extra UF tomorrow.
[2018-09-09] MEDS ORDERED: Albuterol 2.5 MG/3 ML NEBULIZER IH PRN (16:20)
--- NOTE | 2018-09-09 16:30 | Event Note ---
Date of Encounter: 09/09/18 Time of Encounter: 16:28 I have seen and evaluated the patient at bedside. she reports that her breathing has improved. denies chest pain, nausea, vomiting or abdominal pain. hemodynamically stable. had HD today. home medications resumed. will continue to follow.
--- NOTE | 2018-09-09 16:43 | Electrocardiograph Report ---
[place] [id number] Test Date: 2018-09-09 Pat Name: Lynnette Riley Department: EXAM15 Room: 2A43 Gender: F Scruff Worker: : [id number] Requested By: Ro Del Angel Order Number: [id number] Reading MD: Shaye Segovia Measurements Intervals Conner Rate: 85 P: ND: QRS: 86 QRSD: 89 T: 69 QT: 395 QTc: 470 Interpretive Statements Atrial fibrillation Borderline right axis deviation Low voltage, precordial leads Nonspecific ST and T abnormalities Electronically Signed On 09-09-2018 16:41:42 EST by Shaye Segovia
[2018-09-09] MEDS: Budesonide/Formoterol 80/4.5 MDI IH SCH (20:03)
[2018-09-09] MEDS ORDERED: Insulin LISPRO 300 UNITS/3 ML VIAL SQ SCH (21:00)
[2018-09-09] MEDS: *HR* Heparin 5,000 UNIT/ML VIAL SQ SCH (21:16)
[2018-09-09] MEDS ORDERED: *HR* LORazepam 0.5 MG TABLET PO PRN (21:41)
[2018-09-09] MEDS: traMADol 50 MG TABLET PO PRN (21:47)
[2018-09-10] MEDS: traMADol 50 MG TABLET PO PRN ×3 (03:19→17:56)
[2018-09-10] MEDS: *HR* Heparin 5,000 UNIT/ML VIAL SQ SCH ×2 (04:55→17:19)
[2018-09-10 06:56] LABS: Calcium 8.9 mg/dL (8.6-10.3); Phosphorous 4.3 mg/dL (2.7-4.5); Potassium 5.1 mEq/L (3.5-5.1)
[2018-09-10 07:07] LABS: Hematocrit 32.4 % (35.3-44.9); Hemoglobin 9.3 g/dL (11.5-15.4); Mean Corpuscular HGB Conc 28.7 g/dL (31.6-35.5); Mean Corpuscular Hemoglobin 22.1 pg (28.0-33.3); Mean Platelet Volume 12.4 fL (9.4-12.4); Platelet Count 147 K/mcL (140-400); Red Blood Count 4.21 M/mcL (3.82-4.97); Red Cell Distribution Width 21.4 % (11.5-14.5)
[2018-09-10] MEDS ORDERED: 0.9 % Sodium Chloride 250 ML IVC PRN (07:20)
[2018-09-10] MEDS ORDERED: 0.9 % Sodium Chloride 1,000 ML PRIME SCH (07:30)
[2018-09-10] MEDS: Budesonide/Formoterol 80/4.5 MDI IH SCH (07:46)
[2018-09-10] MEDS: Insulin LISPRO 300 UNITS/3 ML VIAL SQ SCH ×3 (08:15→17:18)
[2018-09-10] MEDS ORDERED: Aspirin Enteric Coated 81 MG Tablet PO SCH (09:00)
[2018-09-10] MEDS ORDERED: Isosorbide MONOnitrate (24 HR) 30 MG TAB.ER.24H PO SCH (09:00)
--- NOTE | 2018-09-10 13:11 | Internal Med Progress Note ---
Hospitalist Progress Note - Encounter Date of Encounter: 09/10/18 Time of Encounter: 13:21 - Subjective Interval History: I have seen and evaluated the patient at bedside. Patient reports that she is feeling slightly short of breath, but improved when compared to presentation. Denies chest pain, nausea or vomiting. - Exam Vitals: Temp Pulse Resp BP Pulse Ox 98.0 F 73 17 134/73 99 09/10/18 11:52 09/10/18 11:52 09/10/18 11:52 09/10/18 11:52 09/10/18 11:52 Exam: Vitals: Reviewed General: Obese, in mild distress due to shortness of breath. Skin: Warm and supple. HEENT: Moist mucous membranes. No conjunctivae pallor. Neck: No lymphadenopathy. No JVD. No carotid bruits. No palpable thyroid. Chest: Diminished thoracic expansion. No wheezes, rales or rhonchi. Reduced breath sounds bilaterally. Heart: Irregularly irregular, Normal S1 & S2; rhythmic. No rubs or murmurs. Abdomen: Non-distended, soft and non-tender to palpation. Extremities: 2+ edema in the lower extremity bilaterally. Multiple chronic not infected ulcers in the lower extr b/l. Neurological: Awake, alert and oriented to person, place and time. No focal deficits. Psych: Affect appropriate. - Assessment and Plan (1) Volume overload Current Visit: Yes Status: Resolved Assessment and Plan: Patient presented to volume overload. Due to noncompliance with diet and outpatient renal replacement therapy. Patient has received hemodialysis [id number] for the past 2 days. Shortness of breath on presentation have resolved. Patient on fluid restricted strategies. To 1.5 L a day. (2) ESRD (end stage renal disease) on dialysis Current Visit: Yes Status: Chronic Assessment and Plan: Renal replacement therapy as per nephrology team recommendation. (3) Diabetes Current Visit: No Status: Chronic Assessment and Plan: Blood sugar is well controlled. We will add Levemir 5 unit at bedtime, continue lispro low-dose AC sliding scale. (4) (HFpEF) heart failure with preserved ejection fraction Current Visit: No Status: Chronic Assessment and Plan: Volume overload on presentation due to noncompliance with hemodialysis. Continue to restrict his slight increased to 1.5 L a day. On a beta vera. Daily weight Strict intake and output. Continue isosorbide 30 mg by mouth daily. (5) Anemia in chronic kidney disease, on chronic dialysis Current Visit: No Status: Chronic Assessment and Plan: H&H has been stable. We will continue to monitor. On Aranesp (6) CAD (coronary artery disease) Current Visit: No Status: Chronic Assessment and Plan: Continue dual antiplatelet therapy, on aspirin and clopidogrel 75 mg by mouth daily. (7) COPD (chronic obstructive pulmonary disease) Current Visit: No Status: Chronic Assessment and Plan: Not on acute exacerbation. change broncodilators to scheduled from PRN On albuterol Q4RT PRN will add Duo-Nebs Q4RT scheduled continue symbicort (8) HTN (hypertension) Current Visit: No Status: Chronic Assessment and Plan: BP has been well controlled on carvedilol 6.25mg/PO BID. Plus isosorbide 30mg/PO daily. continue current management (9) Morbid obesity with BMI of 45.0-49.9, adult Current Visit: No Status: Chronic (10) Pressure ulcer, heel, right, unstageable Current Visit: No Status: Chronic Assessment and Plan: multiple non-infected lower extremities ulcers b/l wound care consulted, plan of care as per their recommendations. (11) Atrial fibrillation Current Visit: No Status: Chronic Assessment and Plan: No on anticoagulation due to hx of GI bleeding. rate controlled on carvedilol 6.25mg/PO BID. continue tele monitoring (12) Sacral decubitus ulcer Current Visit: No Status: Chronic Assessment and Plan: no infected. wound care consulted. plan of care as per their recommendations. DVT Prophylaxis: On heparin subcutaneous. - Summary of Assessment and Plan Summary of Assessment and Plan: Patient to remain in the hospital pending insurance authorization for DC to ECF. - Time Spent with Patient Total time spent is greater than 50% in coordination of care (as documented) at patient's floor/unit and/or counseling patient: Greater than 35 minutes (40) Plan of Care Discussed with: patient (and the nurse.) Internal Medicine: Result - Labs CBC & Chem 7: 09/10/18 06:24 09/10/18 06:24 Labs: Short CBC 09/10/18 Range/Units 06:24 WBC 7.5 (4.3-11.1) K/mcL Hgb 9.3 L (11.5-15.4) g/dL Hct 32.4 L (35.3-44.9) % Plt Count 147 (140-400) K/mcL BMP 09/10/18 06:24 Sodium 132 L Potassium 5.1 Chloride 97 L Carbon Dioxide 30 H BUN 23 Creatinine 2.92 H Glucose 208 H Calcium 8.9 - ABG Interpretation ABG results: ABG ABG pH 7.34 pH Units (7.32-7.45) 09/09/18 03:45 ABG pCO2 59 mmHg (35-45) H 09/09/18 03:45 ABG pO2 57 mmHg (85-104) L 09/09/18 03:45 ABG O2 Saturation 86 % (95-98) L 09/09/18 03:45 Consult Discharge Plan - Plan Referrals: NONE,PCP [Primary Care Provider] - (1) Volume overload Qualifiers: Hypervolemia type: unspecified Qualified Code(s): E87.70 - Fluid overload, unspecified (3) Diabetes Qualifiers: Diabetes mellitus type: type 2 Diabetes mellitus terminal gauger insulin use: with intermediate use Diabetes mellitus complication status: with unspecified complic ations Qualified Code(s): E11.8 - Type 2 diabetes mellitus with unspecified complications; Z79.4 - custodial (current) use of insulin (6) CAD (coronary artery disease) Qualifiers: Coronary Disease-Associated Artery/Lesion type: [place] artery [place] vs. transplanted heart: [place] heart Associated angina: with unstable angina Qualified Code(s): I25.110 - Atherosclerotic heart disease of [place] coronary artery with unstable angina pectoris (7) COPD (chronic obstructive pulmonary disease) Qualifiers: COPD type: unspecified COPD Qualified Code(s): J44.9 - Chronic obstructive pulmonary disease, unspecified (8) HTN (hypertension) Qualifiers: Hypertension type: essential hypertension Qualified Code(s): I10 - Essential (primary) hypertension (11) Atrial fibrillation Qualifiers: Atrial fibrillation type: chronic Qualified Code(s): I48.2 - Chronic atrial fibrillation (12) Sacral decubitus ulcer Qualifiers: Pressure injury stage: stage 4 Qualified Code(s): L89.154 - Pressure ulcer of sacral region, stage 4
[2018-09-10] MEDS ORDERED: Gabapentin 100 MG CAPSULE PO SCH (15:00)
--- NOTE | 2018-09-10 15:45 | Nephrology Progress Note ---
Date of Encounter: 09/10/18 Time of Encounter: 12:00 Subjective Interval history: Pt seen and examined siiting up in chair complaining of pain in her bottom due to her scaral decubitus ulcer. s/p UF today with 5kg removed making for 10kgs (22lbs) in the past 2 days. Objective - Vital Signs Vital signs: Vital Signs Temp Pulse Resp BP Pulse Ox 09/10/18 11:52 98.0 F 73 17 134/73 99 09/10/18 11:15 97.3 F L 18 143/70 09/10/18 10:50 126/75 09/10/18 10:35 132/67 09/10/18 10:20 127/56 09/10/18 10:05 136/63 09/10/18 09:50 131/72 09/10/18 09:35 124/65 09/10/18 09:20 134/67 09/10/18 09:05 146/62 09/10/18 08:50 97.7 F 18 137/72 09/10/18 07:46 16 94 09/10/18 07:13 98.0 F 84 17 122/51 94 09/10/18 04:34 98.6 F 74 16 107/51 93 09/09/18 22:49 98.2 F 15 84 102/60 98 09/09/18 20:03 16 98 09/09/18 18:45 98.6 F 81 15 114/75 98 Intake and Output 09/09/18 09/10/18 09/10/18 23:59 07:59 15:59 Intake Total 1870 / 1870 Output Total 5600 / 5600 Balance -3730 / -3730 Intake: IV Fluids 1000 / 1000 0.9 % Sodium Chloride 1,000 ML 1000 / 1000 @ As Directed PRIME .Q0M [facility] Rx #:[id number] Oral 270 / 270 Intake, Rinseback and Flushes 600 / 600 Output: Total Dialysis (HD) Output 5600 / 5600 Other: Meal Lunch Percent of Meal Consumed 100% Stool Size Small Stool Consistency formed Stool Color Brown Weight 118 kg Blood Glucose* 333 191 199 Hemodialysis Net Fluid Removed 5000 (mL) Patient Weight 09/10/18 23:59 Weight 118 kg - Lab 09/10/18 06:24 09/10/18 06:24 Most recent lab results ABG pH 7.34 pH Units (7.32-7.45) 09/09/18 03:45 ABG pCO2 59 mmHg (35-45) H 09/09/18 03:45 ABG pO2 57 mmHg (85-104) L 09/09/18 03:45 ABG HCO3 32 mEq/L (21-27) H 09/09/18 03:45 ABG O2 Saturation 86 % (95-98) L 09/09/18 03:45 Calcium 8.9 mg/dL (8.6-10.3) 09/10/18 06:24 Phosphorus 4.3 mg/dL (2.7-4.5) 09/10/18 06:24 Magnesium 2.0 mg/dL (1.6-2.6) 09/10/18 06:24 Consult Discharge Plan - Plan Referrals: NONE,PCP [Primary Care Provider] -
[2018-09-10 15:48] VITALS: BP 119/52
[2018-09-10] MEDS ORDERED: Ipratropium/Albuterol Neb 3 ML IH SCH (16:00)
[2018-09-10] MEDS: Albuterol 2.5 MG/3 ML NEBULIZER IH SCH (16:02)
--- NOTE | 2018-09-10 16:03 | Discharge Summary ---
- NOTES TO OUTPATIENT PROVIDER Notes to Outpatient Provider: Continue renal replacement therapy as scheduled. Orders not resulted at time of discharge: Pending orders 09/11/18 04:00 Basic Metabolic Panel AM 0400 CBC [Complete Blood Count] [HEME] AM 0400 Magnesium AM 0400 Phosphorous AM 0400 Date of Encounter: 09/10/18 Time of Encounter: 16:00 - Discharge Diagnosis (1) Volume overload Priority: Primary Status: Resolved Qualifiers: Hypervolemia type: unspecified Qualified Code(s): E87.70 - Fluid overload, unspecified (2) ESRD (end stage renal disease) on dialysis Priority: Secondary Status: Chronic (3) Diabetes Priority: Secondary Status: Chronic Qualifiers: Diabetes mellitus type: type 2 Diabetes mellitus fpc insulin use: with exterminator helper termite use Diabetes mellitus complication status: with unspecified complications Qualified Code(s): E11.8 - Type 2 diabetes mellitus with unspecified complications; Z79.4 - long-term (current) use of insulin (4) (HFpEF) heart failure with preserved ejection fraction Priority: Secondary Status: Chronic (5) Anemia in chronic kidney disease, on chronic dialysis Priority: Secondary Status: Chronic (6) CAD (coronary artery disease) Priority: Secondary Status: Chronic Qualifiers: Coronary Disease-Associated Artery/Lesion type: [place] artery [place] vs. transplanted heart: [place] heart Associated angina: with unstable angina Qualified Code(s): I25.110 - Atherosclerotic heart disease of [place] coronary artery with unstable angina pectoris (7) COPD (chronic obstructive pulmonary disease) Priority: Secondary Status: Chronic Qualifiers: COPD type: unspecified COPD Qualified Code(s): J44.9 - Chronic obstructive pulmonary disease, unspecified (8) HTN (hypertension) Priority: Secondary Status: Chronic Qualifiers: Hypertension type: essential hypertension Qualified Code(s): I10 - Essential (primary) hypertension (9) Morbid obesity with BMI of 45.0-49.9, adult Priority: Secondary Status: Chronic (10) Pressure ulcer, heel, right, unstageable Priority: Secondary Status: Chronic (11) Atrial fibrillation Priority: Secondary Status: Chronic Qualifiers: Atrial fibrillation type: chronic Qualified Code(s): I48.2 - Chronic atrial fibrillation (12) Sacral decubitus ulcer Priority: Secondary Status: Chronic Qualifiers: Pressure injury stage: stage 4 Qualified Code(s): L89.154 - Pressure ulcer of sacral region, stage 4 Hospital course: Ms. Riley is a 63 year old female PMH of Atrial fibrillation, CHF, COPD, coronary artery disease, diabetes, dialysis, GI bleed, hyperlipidemia, hypertension, myocardial infarction, peripheral artery disease, renal disease. Patient was brought to the emergency room for shortness of breath and feeling like she could not breathe. She states her symptoms started the day previous. Patient admitted to the hospital due to HFpEF exacerbation, volume overload due to outpatient diet and fluids not compliance. as part of the work up a Chest x- ray was done: IMPRESSION: Constellation of findings suggests CHF/pulmonary edema. Hazy opacification of the lateral mid lung field along the fissure may relate to superimposed pneumonia or other infectious/inflammatory process. Patient recently treated for HCAP with long IV antibiotic coverage. Patient received renal replacement therapy on two consecutive days. He acute symptoms resolved. Patient is hemodynamically stable to be discharge to F. compliance with diet and fluids intake strongly reinforced. It is very likely the patient the patient will be readmitted for the same reason due to patient lack of insight. - Time Spent with Patient Total time spent providing and/or coordinating discharge services: Greater than 30 minutes (45) - Discharge Medications Home Medications: Calcium Acetate [Phos-LO] 1,334 mg PO TIDWM 09/06/16 [History] Aspirin Enteric Coated [Aspirin EC] 81 mg PO DAILY 09/13/17 [History] Budesonide/Formoterol 160/4.5 [Symbicort 160/4.5] 2 puff IH BIDR 09/13/17 [History] Cholecalciferol (Vitamin D3) [Vitamin D3] 50,000 unit PO TH 09/13/17 [History] Sevelamer [Renvela] 800 mg PO DAILY 09/13/17 [History] Albuterol Neb [AccuNeb] 0.63 mg IH Q8H PRN 10/18/17 [History] amLODIPine [Norvasc] 5 mg PO DAILY 12/30/17 [History] Clopidogrel [Plavix] 75 mg PO DAILY 02/03/18 [History] Renal Vitamin [Renal Caps Softgel] 1 mg PO DAILY capsule 04/17/18 [Rx] Carvedilol 12.5 mg PO BID 04/28/18 [History] Darbepoetin [Aranesp] 60 mcg SQ FR 04/28/18 [History] Insulin DETEMIR [Levemir] 34 unit SQ HS 04/28/18 [History] Insulin LISPRO [HumaLOG] 2 - 10 units SQ TIDWM 04/28/18 [History] Lactobacillus Acidophilus/Fos [Acidophilus Probiotic Tablet] 1 tab PO DAILY 04/28/18 [History] Omeprazole [PriLOSEC] 20 mg PO DAILY 04/28/18 [History] Isosorbide MONOnitrate (24 HR) [Imdur] 30 mg PO DAILY #30 tab.er.24h 07/04/18 [Rx] Benzonatate [Tessalon] 200 mg PO TID PRN 10 Days #30 capsule 07/22/18 [Rx] Gabapentin [Neurontin] 100 mg PO TID 4 Days #12 capsule 07/22/18 [Rx] Amino Acids/Protein Hydrolys [Pro-Stat Awc Liquid Packet] 30 ml PO QPM 08/25/18 [History] Collagenase Oint [Santyl] 1 appl TP DAILY 08/25/18 [History] OxyCODONE/APAP 5/325 [Percocet 5/325 MG] 1 tab PO Q6H PRN 08/25/18 [History] Gentamicin Sulfate Cream [Gentamicin Sulfate] 1 appl TP DAILY 09/09/18 [History] LORazepam [Ativan] 0.5 mg PO Q12H PRN 09/09/18 [History] Allergies/Adverse Reactions: Allergy/AdvReac Type Severity Reaction Status Date / Time piperacillin [From Zosyn] Allergy Anaphylaxis Verified 09/09/18 09:48 tazobactam [From Zosyn] Allergy Anaphylaxis Verified 09/09/18 09:48 Date of admission: 09/09/18 04:11 Primary care physician: PCP NONE Consults: 09/09/18 06:18 Consult to Wound Care [CONS] Routine Reason for Consult: Stage II and 3 foot ulcers on left side. Call Completed: No 09/09/18 06:19 Consult to Nephrology [CONS] Routine Consulting Provider: Kidney Olivia/MARCO/SWAPNA/MILLIE Reason for Consult: End-stage renal disease, presenting to ER with shortness of breath and fluid overload Call Completed: No 09/09/18 07:45 Consult to Dialysis [CONS] ONCE 09/09/18 15:20 Consult to Wound Care [CONS] Routine Reason for Consult: Full thickness sacral wound Call Completed: No 09/10/18 07:30 Consult to Dialysis [CONS] ONCE - Constitutional Vitals: Temp Pulse Resp BP Pulse Ox 98.0 F 84 16 119/52 99 09/10/18 15:47 09/10/18 15:47 09/10/18 15:47 09/10/18 15:47 09/10/18 15:47 General appearance: Present: cooperative, A&O X 3, pleasant, no acute distress, obese, answers questions appropriately Exam: Vitals: Reviewed General: Obese, in mild distress due to shortness of breath. Skin: Warm and supple. HEENT: Moist mucous membranes. No conjunctivae pallor. Neck: No lymphadenopathy. No JVD. No carotid bruits. No palpable thyroid. Chest: Diminished thoracic expansion. No wheezes, rales or rhonchi. Reduced breath sounds bilaterally. Heart: Irregularly irregular, Normal S1 & S2; rhythmic. No rubs or murmurs. Abdomen: Non-distended, soft and non-tender to palpation. Extremities: 2+ edema in the lower extremity bilaterally. Multiple chronic not infected ulcers in the lower extr b/l. Neurological: Awake, alert and oriented to person, place and time. No focal de ficits. Psych: Affect appropriate. - Patient Status Disposition: Transfer LTC Condition: Good Functional capacity at discharge: independent ambulation Overall status at discharge: patient is progressing back to baseline - Discharge Instructions Follow Up With: NONE,PCP [Primary Care Provider] - - Diet and Activity Activity: wear oxygen at all times Diet: low salt diet
--- NOTE | 2018-09-10 16:11 | Physician Discharge Referral ---
ExtendedCare Referral Info Transfer To: ecf - Diagnosis (1) Volume overload Priority: Primary Status: Resolved (2) ESRD (end stage renal disease) on dialysis Priority: Secondary Status: Chronic (3) Diabetes Priority: Secondary Status: Chronic (4) (HFpEF) heart failure with preserved ejection fraction Priority: Secondary Status: Chronic (5) Anemia in chronic kidney disease, on chronic dialysis Priority: Secondary Status: Chronic (6) CAD (coronary artery disease) Priority: Secondary Status: Chronic (7) COPD (chronic obstructive pulmonary disease) Priority: Secondary Status: Chronic (8) HTN (hypertension) Priority: Secondary Status: Chronic (9) Morbid obesity with BMI of 45.0-49.9, adult Priority: Secondary Status: Chronic (10) Pressure ulcer, heel, right, unstageable Priority: Secondary Status: Chronic (11) Atrial fibrillation Priority: Secondary Status: Chronic (12) Sacral decubitus ulcer Status: Chronic Prognosis: Fair Aware of Diagnosis: Patient, Family Aware of Prognosis: Patient, Family - Transfer Medications Home Medications: Calcium Acetate [Phos-LO] 1,334 mg PO TIDWM 09/06/16 [History] Aspirin Enteric Coated [Aspirin EC] 81 mg PO DAILY 09/13/17 [History] Budesonide/Formoterol 160/4.5 [Symbicort 160/4.5] 2 puff IH BIDR 09/13/17 [History] Cholecalciferol (Vitamin D3) [Vitamin D3] 50,000 unit PO TH 09/13/17 [History] Sevelamer [Renvela] 800 mg PO DAILY 09/13/17 [History] Albuterol Neb [AccuNeb] 0.63 mg IH Q8H PRN 10/18/17 [History] amLODIPine [Norvasc] 5 mg PO DAILY 12/30/17 [History] Clopidogrel [Plavix] 75 mg PO DAILY 02/03/18 [History] Renal Vitamin [Renal Caps Softgel] 1 mg PO DAILY capsule 04/17/18 [Rx] Carvedilol 12.5 mg PO BID 04/28/18 [History] Darbepoetin [Aranesp] 60 mcg SQ FR 04/28/18 [History] Insulin DETEMIR [Levemir] 34 unit SQ HS 04/28/18 [History] Insulin LISPRO [HumaLOG] 2 - 10 units SQ TIDWM 04/28/18 [History] Lactobacillus Acidophilus/Fos [Acidophilus Probiotic Tablet] 1 tab PO DAILY 04/28/18 [History] Omeprazole [PriLOSEC] 20 mg PO DAILY 04/28/18 [History] Isosorbide MONOnitrate (24 HR) [Imdur] 30 mg PO DAILY #30 tab.er.24h 07/04/18 [Rx] Benzonatate [Tessalon] 200 mg PO TID PRN 10 Days #30 capsule 07/22/18 [Rx] Gabapentin [Neurontin] 100 mg PO TID 4 Days #12 capsule 07/22/18 [Rx] Amino Acids/Protein Hydrolys [Pro-Stat Awc Liquid Packet] 30 ml PO QPM 08/25/18 [History] Collagenase Oint [Santyl] 1 appl TP DAILY 08/25/18 [History] OxyCODONE/APAP 5/325 [Percocet 5/325 MG] 1 tab PO Q6H PRN 08/25/18 [History] Gentamicin Sulfate Cream [Gentamicin Sulfate] 1 appl TP DAILY 09/09/18 [History] LORazepam [Ativan] 0.5 mg PO Q12H PRN 09/09/18 [History] Allergies/Adverse Reactions: Allergy/AdvReac Type Severity Reaction Status Date / Time piperacillin [From Zosyn] Allergy Anaphylaxis Verified 09/09/18 09:48 tazobactam [From Zosyn] Allergy Anaphylaxis Verified 09/09/18 09:48 - Respiratory Orders Oxygen / L per min (4 litters) Smoking Cessation: Smoking cessation has been advised. For more information, call the [place] Tobacco Quit Line at 1-567-FDEZ-NOW. - Advance Directives Code Status: DNR-Arrest/Don't Intubate - Mobility Orders Chair - Rehabiliation Orders Rehab Potential: Fair Rehab Orders: Evaluation for Physical Therapy, Evaluation for Occupational Therapy - Diet Orders Regular CERTIFICATION: I certify that the transfer of the above named patient to an Extended Care Facility is necessary for the continuing treatment of the diagnosis listed. The above information is true and accurate reflection of patient's current condition. Confidential - Redisclosure prohibited without a patient's written consent.
[2018-09-10] MEDS ORDERED: Insulin DETEMIR 100 UNIT/ML X5UNITS SQ SCH (21:00)
== END 2018-09-10 18:14 ==
LOC: 2ANU 01:39 → EMEROOARM 01:39 → SUATTDRO 04:11 → 2ANU 04:17
PROVIDERS: ADMIT Internal Medicine; ATTEND Internal Medicine